=== PATIENT | female | born 2000 | race Caucasian/White ===

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

== ENCOUNTER → 2019-06-09 17:23 | Outpatient (CLI) | payer OTHER, SELFPAY ==
--- NOTE | 2019-06-09 18:15 | MRI_ITS ---
STUDY: MRI RIGHT FOREFOOT WITHOUT CONTRAST REASON FOR EXAM: Female, 18 years old. Right great toe sesamoid fracture. Pain, unable to bear weight. TECHNIQUE: Standardized fat and water weighted pulse sequences were obtained in all 3 orthogonal planes. COMPARISON: None. FINDINGS: Trace fluid in the first metatarsophalangeal joint. Normal tibial and fibular sesamoids, with normal sesamoid-first metatarsal articulations. There is no acute sesamoid fracture, sesamoiditis, or osteonecrosis. There is a chronic medial sesamoid fracture fragment. Normal interphalangeal joint of the hallux. Normal proximal and distal phalanges of the great toe. Normal second through fifth metatarsophalangeal (MTP) joints. Normal interphalangeal joints of the second through fifth toes. Normal phalanges of the second through fifth toes. Metatarsal bones are unremarkable. Normal first through fourth intermetatarsal spaces. Flexor and extensor tendons are intact. There is no demonstrated soft tissue abnormality. MRI/Lower Ext/No Jt/w/o IMPRESSION: 1. Trace effusion of the first MTP joint. 2. Remote medial sesamoid fracture. Electronically Signed: Kassi Hightower MD at 23:39 EDT Tel , Service support ,
== END ==
PROVIDERS: Referring Provider Podiatrist; Visit Provider Podiatrist
DX: M25.80 Other specified joint disorders, unspecified joint (principal); S92.901A Unspecified fracture of right foot, initial encounter for closed fracture; S96.111A Strain of muscle and tendon of long extensor muscle of toe at ankle and foot level, right foot, initial encounter; M79.671 Pain in right foot; X58.XXXA Exposure to other specified factors, initial encounter; Y93.9 Activity, unspecified; Y92.9 Unspecified place or not applicable; Y99.9 Unspecified external cause status
CPT/HCPCS: 73718

== ENCOUNTER 2020-10-24 15:09 | Emergency (ER) | payer SELFPAY ==
[2020-10-24 15:10] VITALS: BP 137/87; PULSE 100; RESP 18; TEMP 36.6; O2SAT 99; BMI 31.2
--- NOTE | 2020-10-24 15:31 | ED.VIS.GEN ---
History of Present Illness Chief Complaint: Complaint Informant: Patient Onset: Days Context: Gradual Onset Current Severity: Moderate Maximum Severity: Moderate Narrative: Patient presents secondary to concerns for worsening UTI. Patient states that she developed back pain and dizziness on the . She was seen at an urgent care and diagnosed with a kidney infection. She was prescribed Keflex 3 times daily for 7 days. Patient states she developed diarrhea once she started the antibiotics. She is concerned she may be now dehydrated. She reports continued to have dizziness and headache. She reports sweats and chills. She does report her back pain is improving. She was initially having dysuria but that is also improving. Past Medical History - Allergies and Home Meds Allergies/Adverse Reactions: Allergies citalopram hydrobromide [From Celexa] Adverse Reaction (Verified 10/24/20 15:13) Other suicidal thoughts Primary Care Physician: Care Physician,No Primary [Primary Care Provider] - Past Medical History: - - Frequent UTIs Lives: Spouse/ Significant Other Smoking Status: Never smoker Review of Systems General: Reports: Chills, Sweats Eyes: Denies: Visual changes - bilaterally ENT: Denies: Bilateral ear pain Cardiovascular: Denies: Chest pain Respiratory: Denies: Dyspnea, Cough Gastrointestinal: Reports: Abdominal pain, Diarrhea. Denies: Vomiting Genitourinary: Reports: Dysuria - Improving Musculoskeletal: Reports: Back pain - Improving Skin: Denies: Rash Neurological: Reports: Headache Hematologic: Denies: Easy bruising, Easy bleeding Allergy: Denies: Uticaria Physical Exam Vital Signs/Narrative: Vital Signs Temp Pulse Resp BP Pulse Ox 10/24/20 15:10 97.8 F 100 18 137/87 H 99 Inital Vital Signs reviewed: Yes General: Well nourished, Well developed Head: Normocephalic ENT: Moist mucous membranes Neck: Supple Cardiovascular: Regular rate, Regular rhythm Respiratory: No distress, CTA bilaterally Abdomen: Soft, Tender - Mild suprapubic tenderness., Hypoactive bowel sounds. Negative for: Guarding, Rebound tenderness Back: Negative for: CVA tenderness Skin: Normal color Neurological: Alert, Oriented x3 Psychological: Normal affect Diagnostic/Tx/Re-eval Laboratory Results 10/24/20 10/24/20 10/24/20 15:24 15:52 15:52 WBC 9.4 RBC 4.80 Hgb 14.4 Hct 42.3 MCV 88.1 MCH 30.0 MCHC 34.0 RDW Std Deviation 38.2 RDW Coeff of Brittany 11.9 Plt Count 205 MPV 11.0 Immature Gran % (Auto) 0.400 Neut % (Auto) 75.8 H Lymph % (Auto) 17.9 L Hendricks % (Auto) 5.5 Eos % (Auto) 0.2 Baso % (Auto) 0.2 Absolute Neuts (auto) 7.1 Absolute Lymphs (auto) 1.69 Nucleated RBC % 0 Differential Comment SCANNED Sodium 138 Potassium 4.1 Chloride 108 H Carbon Dioxide 24.0 Anion Gap 6 BUN 19 H Creatinine 0.68 Estim Creat Clear Calc 98.75 Est GFR (MDRD) Af Amer 140 Est GFR (MDRD) Non-Af 116 BUN/Creatinine Ratio 27.9 H Glucose 82 Calcium 9.8 Urine Color Yellow Urine Clarity Sl. Cloudy Urine pH 6.0 Ur Specific [place] 1.015 Urine Protein Negative Urine Glucose (UA) Normal Urine Ketones Negative Urine Occult Blood 25 H Urine Nitrite Negative Urine Bilirubin Negative Urine Urobilinogen Normal Ur Leukocyte Esterase 25 H Urine RBC 0-5 SEEN Urine WBC 0-5 SEEN Ur Squamous Epith Cells 0-5 SEEN Amorphous Sediment 1+ URATE Urine Bacteria 0 SEEN Urine Mucus 0 SEEN Urine Test Negative - Medical Decision Making Patient did have blood work obtained but we were unable to establish an IV. Patient states that she is a hard stick and they have difficulty getting IVs on her. She was given IM Toradol. On repeat evaluation she is resting comfortably. Blood work and urinalysis are largely unremarkable. Patient has had ongoing diarrhea. She will be swabbed for Covid but does not have to wait for that result. She will be given off work tomorrow. She is to continue to push fluids at home. She is to continue her full course of antibiotics. ED Disposition - Plan for ED Patient: Disposition: Home or Assisted Living Diagnosis: Diarrhea Instructions: ED Diarrhea, Unknown Cause Referrals: Rosalina Almaraz MD [STAFF PHYSICIAN] - As Needed
[2020-10-24 16:01] LABS: Bacteria 0 SEEN /hpf (None Seen); Mucous, Urine 0 SEEN /hpf (<or=2+)
[2020-10-24 16:03] LABS: Color, Urine Yellow (Yellow); Glucose, Dipstick Normal (Normal); Ketone-Dipstick Negative (Negative); Leukocyte Esterase-Dipstick 25 /ul (Negative); Nitrite-Dipstick Negative (Negative); Occult Blood-Urine 25 /ul (Negative); Protein-Dipstick Negative (Negative); Specific Gravity, Urine 1.015 (1.002-1.030); Urine Bilirubin Dipstick Negative (Negative); Urine Clarity Sl. Cloudy (Clear); Urine Urobilinogen Normal (Normal)
[2020-10-24 16:16] LABS: Internal QC Validated? YES +Cl - CLEAR BKGD; Pregnancy, Urine Negative Negative
[2020-10-24 16:17] LABS: Anion Gap 6 (5-15); BUN 19 mg/dL (7-18); BUN/Creat Ratio 27.9 RATIO (10-20); Calcium,Total 9.8 mg/dL (8.5-10.1); Chloride 108 mmol/L (98-107); Creatinine, Serum 0.68 mg/dL (0.55-1.02); EST Glomerular Filtration Rate 116 mL/min (>60); Est Glom Filt Rate - Afr Amer 140 mL/min (>60); Estimated Creatinine Clearance 98.75 ml/min; Glucose 82 mg/dL (74-106); Potassium 4.1 mmol/L (3.5-5.1); Sodium Level 138 mmol/L (136-145)
[2020-10-24] MEDS: Ketorolac 30 MG/ML Syringe IM (16:19)
[2020-10-24 16:20] LABS: Absolute Lymphocyte Count 1.69 X10^3/uL (0.83-4.51); Absolute Neutrophil Count 7.1 X10^3/uL (2.0-7.7); Basophil# 0.02 X10^3/uL; Basophil% 0.2 % (0-1); Eosinophil# 0.02 X10^3/uL; Eosinophils% 0.2 % (0-5); Hematocrit 42.3 % (37-47); Hemoglobin 14.4 g/dL (12.0-15.0); Lymphocyte # 1.69 X10^3/ul (4.0); Lymphocyte % 17.9 % (19-41); Mean Corpuscular Volume 88.1 fL (81-99); Monocyte# 0.52 X10^3/uL; Monocyte% 5.5 % (0-10); NRBC Flagged by Analyzer 0 % (0-5); Neutrophil # 7.13 X10^3/uL (2.7-7.7); Neutrophil % 75.8 % (47-70); POSITIVE COUNT YES; Platelet Count 205 K/mm3 (150-450); RBC Distribution Width CV 11.9 % (11.6-14.6); RBC Distribution Width SD 38.2 fl (35.1-43.9); White Blood Count 9.4 K/mm3 (4.4-11.0)
[2020-10-24 16:31] LABS: Differential Indicated SCAN CRITERIA MET
[2020-10-24 16:35] LABS: Amorphous Sediment 1+ URATE; Red Blood Cells-Urine 0-5 SEEN /hpf (0-5); Squamous Epithelial Cells - UA 0-5 SEEN /hpf (5-10); White Blood Cells 0-5 SEEN /hpf (0-5)
[2020-10-24 16:51] LABS: Differential Comment SCANNED
[2020-10-24 17:04] VITALS: BP 109/63; PULSE 57; RESP 16; O2SAT 99
== END 2020-10-24 17:05 | disposition home or self-care (01) ==
PROVIDERS: Emergency Provider Emergency Medicine
DX: R19.7 Diarrhea, unspecified (principal); Z87.440 Personal history of urinary (tract) infections
CPT/HCPCS: 80048; 81001; 81025; 85025; 87426; 96372; 99282; J7030

== ENCOUNTER 2021-11-01 18:28 | Emergency (ER) | payer OTHER, SELFPAY ==
[2021-11-01 18:30] VITALS: BP 123/80; PULSE 110; RESP 16; TEMP 35.9; O2SAT 94; BMI 33.0
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
[2021-11-01] MEDS: Naproxen 500 MG Tablet PO (19:01)
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
== END 2021-11-01 20:29 | disposition home or self-care (01) ==
PROVIDERS: Emergency Provider Emergency Medicine; Visit Provider Emergency Medicine
DX: S97.111A Crushing injury of right great toe, initial encounter (principal); X58.XXXA Exposure to other specified factors, initial encounter
CPT/HCPCS: 73630; 99283

== ENCOUNTER 2022-06-29 17:59 | Emergency (ER) | payer OTHER, SELFPAY ==
[2022-06-29 18:00] VITALS: BP 142/98; PULSE 113; RESP 16; TEMP 36.6; O2SAT 98; BMI 33.0
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
--- NOTE | 2022-06-29 21:15 | EKG12_ITS ---
Test Reason : DYSRHYTHMIA Blood Pressure : / mmHG Vent. Rate : 098 BPM Atrial Rate : 098 BPM P-R Int : 112 ms QRS Dur : 076 ms QT Int : 348 ms P-R-T Axes : 025 048 003 degrees QTc Int : 444 ms Normal sinus rhythm Nonspecific ST and T wave abnormality Abnormal ECG Confirmed by DARRELL AN, IAN ([id number]), general expeditor DYLON ALEXANDRE ([id number]) on 07/01/2022 11:05:22 AM Referred By: SANTA Confirmed By:IAN RAMÍREZ MD
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
--- NOTE | 2022-06-29 21:16 | CT_ITS ---
STUDY: CT BRAIN WITHOUT CONTRAST REASON FOR EXAM: Female, 21 years old. Trauma RADIATION DOSAGE (If Supplied By Facility): CTDIvol = ( 44.99 ) mGy, DLP = ( 798.92 ) mGycm TECHNIQUE: Transaxial CT imaging of the brain was performed without administration of intravenous contrast material. Individualized dose optimization techniques were used for this CT. COMPARISON: No relevant priors. FINDINGS: Normal soft tissue structures. Normal calvarium. Normal size ventricles and extra-axial spaces for the patient''s age. Normal white matter tracts of the cerebral hemispheres. Normal basal ganglia and thalami. Normal brainstem. Normal cerebellum. There is no intracranial hemorrhage. There are no findings of an acute ischemic infarction. Normal visualized paranasal sinuses. The bilateral mastoid air cells and ossicles are unopacified. CT/Brain/Head without Contrast IMPRESSION: There is no acute intracranial pathology. Electronically Signed: Hattie Fox MD at 22:38 EDT Reading Location ID and State: , Service support ,
[2022-06-29 21:49] LABS: Absolute Lymphocyte Count 1.79 X10^3/uL (0.83-4.51); Absolute Neutrophil Count 6.1 X10^3/uL (2.0-7.7); Basophil# 0.01 X10^3/uL; Basophil% 0.1 % (0-1); Eosinophil# 0.02 X10^3/uL; Eosinophils% 0.2 % (0-5); Hematocrit 40.2 % (37-47); Hemoglobin 13.7 g/dL (12.0-15.0); Lymphocyte # 1.79 X10^3/ul (0.83-4.51); Lymphocyte % 21.2 % (19-41); Mean Corp Hgb Conc 34.1 g/dL (32-36); Mean Corpuscular Hgb 30.9 pg (27.0-32.0); Mean Corpuscular Volume 90.5 fL (81-99); Mean Platelet Vol. 9.9 fl (6.2-12.0); Monocyte# 0.49 X10^3/uL; Monocyte% 5.8 % (0-10); NRBC Flagged by Analyzer 0 % (0-5); Neutrophil # 6.11 X10^3/uL (2.7-7.7); Neutrophil % 72.2 % (47-70); Platelet Count 287 K/mm3 (150-450); RBC Distribution Width CV 12.7 % (11.6-14.6); Red Blood Count 4.44 M/mm3 (4.2-5.4); White Blood Count 8.5 K/mm3 (4.4-11.0)
[2022-06-29] MEDS: Ondansetron 4 MG/2 ML Vial IV (21:50)
[2022-06-29] MEDS: Morphine 4 MG/ML Syringe IV ×2 (21:50→23:58)
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
[2022-06-29 22:00] VITALS: BP 129/78; PULSE 94; RESP 14; O2SAT 98
[2022-06-29 22:04] LABS: Internal QC Validated? YES +Cl - CLEAR BKGD
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
[2022-06-29 22:05] LABS: Pregnancy, Serum, hCG Quali. NEGATIVE Negative
[2022-06-29 22:07] LABS: Anion Gap 8 (5-15); BUN 17 mg/dL (7-18); BUN/Creat Ratio 23.1 RATIO (10-20); Calcium,Total 9.7 mg/dL (8.5-10.1); Chloride 106 mmol/L (98-107); Creatinine, Serum 0.74 mg/dL (0.55-1.02); EST Glomerular Filtration Rate 104 mL/min (>60); Est Glom Filt Rate - Afr Amer 126 mL/min (>60); Estimated Creatinine Clearance 89.98 ml/min; Glucose 98 mg/dL (74-106); Potassium 3.9 mmol/L (3.5-5.1); Sodium Level 142 mmol/L (136-145)
[2022-06-29 23:12] LABS: Bacteria 0 SEEN /hpf (None Seen); Mucous, Urine 0 SEEN /hpf (<or=2+)
[2022-06-29 23:14] LABS: Color, Urine Yellow (Yellow); Glucose, Dipstick Normal (Normal); Ketone-Dipstick Negative (Negative); Leukocyte Esterase-Dipstick 25 /ul (Negative); Nitrite-Dipstick Negative (Negative); Occult Blood-Urine 25 /ul (Negative); Protein-Dipstick 30 mg/dl (Negative); Urine Bilirubin Dipstick Negative (Negative); Urine Clarity Clear (Clear); Urine Urobilinogen Normal (Normal); Urine pH 6.5 (5.0 - 8.0)
[2022-06-29 23:25] LABS: Red Blood Cells-Urine 0-5 SEEN /hpf (0-5); Squamous Epithelial Cells - UA 0-5 SEEN /hpf (5-10); White Blood Cells 0-5 SEEN /hpf (0-5)
[2022-06-29 23:48] VITALS: BP 124/78; PULSE 66; RESP 14; TEMP 37.2; O2SAT 99
[2022-06-29] MEDS: Ketorolac 15 MG/ML Vial IV (23:58)
[2022-06-30 00:36] VITALS: BP 113/76; PULSE 79; RESP 16; O2SAT 96
== END 2022-06-30 00:36 | disposition home or self-care (01) ==
PROVIDERS: Emergency Provider Emergency Medicine; Visit Provider Emergency Medicine
DX: S06.0X1A Concussion with loss of consciousness of 30 minutes or less, initial encounter (principal); R10.9 Unspecified abdominal pain; S16.1XXA Strain of muscle, fascia and tendon at neck level, initial encounter; S20.20XA Contusion of thorax, unspecified, initial encounter; E66.9 Obesity, unspecified; V48.5XXA Car driver injured in noncollision transport accident in traffic accident, initial encounter; Y92.410 Unspecified street and highway as the place of occurrence of the external cause; R51.9 Headache, unspecified; R11.2 Nausea with vomiting, unspecified
CPT/HCPCS: 70450; 71046; 72125; 74177; 80048; 81001; 84703; 85025; 93005; 96374; 96375; 96376; 99283; Q9967; A4216; J2405

== ENCOUNTER 2022-07-20 16:14 | Outpatient (RCR) | payer OTHER, SELFPAY ==
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
--- NOTE | 2022-09-29 09:51 | HP.PT.NRP ---
MANISH OLIVEIRA was seen in my office for initial evaluation on 07/20/22. The following Plan of Care was established for this patient: Initial Frequency: 2x /Week Initial Duration: 4 Weeks Patient/Client Instruction: Educate patient on: Condition, Plan of Care For the Purpose of:: To decrease pain, To increase ROM, To improve muscle performance and motor function, To improve ability to perform ADL's, To increase tolerance to activity/condition/position, To improve performance and independence with ADL's, To improve ability of physical actions for home/community/work/leisure, To improve health of tissue, To decrease soft tissue restriction, To increase flexibility/ROM, To prevent re-injury Therapeutic Exercise to Include: Strength training, Body mechanics, Postural training, Flexibilty training, Active ROM, Dynamic Lumbar Stabilization For the Purpose of:: To decrease pain, To increase ROM, To improve muscle performance and motor function, To improve ability to perform ADL's, To increase tolerance to activity/condition/position, To improve ability of physical actions for home/community/work/leisure, To improve health of tissue, To decrease soft tissue restriction, To increase flexibility/ROM, To improve balance, To improve tolerance to ADL's Manual Therapy Techniques to Include: Soft tissue mobilization Comment: CERVICAL For the Purpose of:: To decrease pain, To increase ROM, To improve health of tissue, To decrease soft tissue restriction TENS: Yes IF ES: Yes Cryotherapy (ice pack, ice massage): Yes Thermo therapy (hot pack): Yes Ultrasound (thermal/non thermal): Yes For the Purpose of:: To decrease pain, To increase ROM, To improve nutrient delivery to tissue, To increase oxygenation perfusion, To improve health of tissue, To decrease soft tissue restriction, To increase flexibility/ROM, To prevent re-injury This patient was last seen in our office . Pertinent comments regarding their Physical therapy will appear below: Patient was seen for PT evaluation and HEP At this point I will be discontinuing this patient from physical therapy. I would be happy to see this patient again in the future if found appropriate by the physician. Thank you! Kristopher Figueroa, PT, Cert MDT, OCS Balance/Gait/Functional tests - Balance/Special Test Scores Oswestry Low Back Score: 33
== END 2022-07-20 19:00 | disposition home or self-care (01) ==
LOC: PT 16:14
PROVIDERS: Referring Provider Physician Assistant; Visit Provider Physician Assistant
DX: S06.0X0D Concussion without loss of consciousness, subsequent encounter (principal); S16.1XXD Strain of muscle, fascia and tendon at neck level, subsequent encounter; S39.012D Strain of muscle, fascia and tendon of lower back, subsequent encounter; X58.XXXD Exposure to other specified factors, subsequent encounter; M54.16 Radiculopathy, lumbar region
CPT/HCPCS: 97014; 97161; G0283

== ENCOUNTER 2022-08-09 13:49 | Emergency (ER) | payer OTHER, SELFPAY ==
[2022-08-09 13:51] VITALS: BP 133/90; PULSE 113; RESP 14; TEMP 36.8; O2SAT 100; BMI 35.9
[2022-08-09 14:39] LABS: Bacteria 0 SEEN /hpf (None Seen); Mucous, Urine 0 SEEN /hpf (<or=2+); Red Blood Cells-Urine 0 SEEN /hpf (0-5); White Blood Cells 0 SEEN /hpf (0-5)
[2022-08-09 14:43] LABS: Color, Urine Yellow (Yellow); Glucose, Dipstick Normal (Normal); Ketone-Dipstick Negative (Negative); Leukocyte Esterase-Dipstick 25 /ul (Negative); Nitrite-Dipstick Negative (Negative); Occult Blood-Urine 25 /ul (Negative); Protein-Dipstick Negative (Negative); Urine Bilirubin Dipstick Negative (Negative); Urine Clarity Clear (Clear); Urine Urobilinogen Normal (Normal)
[2022-08-09 14:45] LABS: Squamous Epithelial Cells - UA 0-5 SEEN /hpf (5-10)
--- NOTE | 2022-08-09 14:59 | US_ITS ---
STUDY: FIRST TRIMESTER OBSTETRICAL ULTRASOUND REASON FOR EXAM: Female, 21 years old light bleeding LMP: 06/21/2022 TECHNIQUE: Transvaginal TECHNICAL QUALITY: Adequate. PRIOR ULTRASOUND: None. FINDINGS: There is visualization of a single gestational sac in a normal intrauterine position. The mean sac diameter (MSD) measures 10 mm, indicating an estimated gestational age (EGA) of 5 weeks, 5 days. The gestational sac shape is within normal limits. There is a visualized yolk sac. The yolk sac measures 5 mm. The placenta is non-visualized. There is visualization of a live embryo. The crown-rump length (CRL) measures 4 mm, indicating an estimated gestational age (EGA) of 6 weeks, 2 days. There is demonstrated cardiac activity with a heart rate of 120 bpm. The estimated gestation age (EGA) by LMP is 7 weeks, 0 days. The estimated date of delivery (KIMO) by LMP is 03/28/2023. The estimated gestation age (EGA) by US is 6 weeks, 0 days. The estimated date of delivery (KIMO) by US is 04/04/2023. The uterus measures 7.2 x 5.1 x 4.4 cm. There is no demonstrated uterine fibroid. The cervix is closed. The right ovary measures 2.8 x 1.4 x 1.7 cm. There is no right ovarian cyst. There is no visualized right adnexal mass or complex lesion. The left ovary measures 2.2 x 1.5 x 1.7 cm. There is no left ovarian cyst. There is no visualized left adnexal mass or complex lesion. There is no fluid in the cul de sac. US/Transvaginal w/Preg US IMPRESSION: Living intrauterine of 6 weeks 0 days as described above. Electronically Signed: Tyshawn Vieira MD at 17:45 EDT ,
[2022-08-09 15:07] LABS: Internal QC Validated? YES +Cl - CLEAR BKGD; Pregnancy, Serum, hCG Quali. POSITIVE Negative
[2022-08-09] MEDS: Acetaminophen 325 MG Tablet 650 MG PO (15:12)
[2022-08-09 15:14] LABS: Absolute Lymphocyte Count 1.23 X10^3/uL (0.83-4.51); Absolute Neutrophil Count 4.2 X10^3/uL (2.0-7.7); Basophil# 0.01 X10^3/uL; Basophil% 0.2 % (0-1); Eosinophil# 0.02 X10^3/uL; Eosinophils% 0.3 % (0-5); Hematocrit 39.1 % (37-47); Hemoglobin 13.4 g/dL (12.0-15.0); Lymphocyte # 1.23 X10^3/ul (0.83-4.51); Mean Corp Hgb Conc 34.3 g/dL (32-36); Mean Corpuscular Hgb 31.5 pg (27.0-32.0); Mean Corpuscular Volume 91.8 fL (81-99); Mean Platelet Vol. 10.1 fl (6.2-12.0); Monocyte# 0.37 X10^3/uL; Monocyte% 6.3 % (0-10); NRBC Flagged by Analyzer 0 % (0-5); Neutrophil # 4.21 X10^3/uL (2.7-7.7); Neutrophil % 71.9 % (47-70); Platelet Count 224 K/mm3 (150-450); RBC Distribution Width CV 12.8 % (11.6-14.6); RBC Distribution Width SD 42.5 fl (35.1-43.9); Red Blood Count 4.26 M/mm3 (4.2-5.4); White Blood Count 5.9 K/mm3 (4.4-11.0)
[2022-08-09 15:55] LABS: ALB/GLOB Ratio 1.1 RATIO (0.9-2.4); AST(SGOT) 38 U/L (15-37); Alanine Aminotransfer ALT/SGPT 67 U/L (13-56); Albumin, Serum 3.8 g/dL (3.2-5.0); Alkaline Phosphatase 56 U/L (45-117); Anion Gap 7 (5-15); BUN 8 mg/dL (7-18); BUN/Creat Ratio 9.7 RATIO (10-20); Calcium,Total 9.2 mg/dL (8.5-10.1); Chloride 107 mmol/L (98-107); Creatinine, Serum 0.82 mg/dL (0.55-1.02); EST Glomerular Filtration Rate 91 mL/min (>60); Est Glom Filt Rate - Afr Amer 111 mL/min (>60); Globulin 3.5 g/dL (2.2-4.2); Glucose 122 mg/dL (74-106); Potassium 3.5 mmol/L (3.5-5.1); Protein, Total 7.3 g/dL (6.4-8.2); Sodium Level 139 mmol/L (136-145)
[2022-08-09 16:12] LABS: hCG Titer Quant., Serum 10165 mIU/mL (1-3)
[2022-08-09 16:37] VITALS: BP 114/56; PULSE 94; RESP 18; O2SAT 99
--- NOTE | 2022-08-09 17:13 | ED.VIS.FEGU ---
HPI HPI - Female History of Present Illness Chief Complaint: Vag Bld, Preg Informant: patient Narrative Narrative: Patient is a 21-year-old female, G1, P0 presenting with vaginal bleeding in early . Patient is approximately 6 weeks gestation. Her last menstrual period was June 21. Her UTILIZATION REVIEW NURSE is in [place], Dr. Hernandez. She has not had an ultrasound confirming intrauterine gestation yet. Patient reports that she developed some mild lower abdominal cramping, right worse than left today and pink vaginal bleeding. She states it is only when she wipes after using the restroom. Denies any passage of clots or leakage of fluids. Is concerned because she has a family history of miscarriages. Reports urinary frequency but no dysuria or hematuria. Is not currently sexually active. Denies any abnormal vaginal discharge or concern for STI. No other complaints at this time. [facility] Medical History Acute lumbar myofascial strain Blunt abdominal trauma Cervical strain, acute Chest wall contusion Concussion without loss of consciousness Congenital fxnkkd-plbfxsz-ptjjv reflux Crushing injury of right great toe, initial encounter Lumbar radiculopathy, acute Home Medications ginhalyi-slx-Pr-FA 1 mg tablet 1 tab PO DAILY 08/09/22 [History Last Taken Unknown] Allergy/AdvReac Type Severity Reaction Status Date / Time citalopram hydrobromide AdvReac Other Verified 08/09/22 13:51 [From Celexa] Family History Grandmother Breast cancer Brain cancer Grandfather CVA (cerebral vascular accident) Mother Diabetes Surgical History [place] teeth removed Social History household members: spouse housing: house Smoking Status: Never smoker alcohol intake: never what type of physical activity do you participate in: yoga frequency: 1-2 times per week do you feel safe at home: Yes ROS ROS ED Constitutional Constitutional ED: Denies chills or fever(s) Eyes Eyes: Denies change in vision ENT ENT ED: Denies rhinorrhea Cardiovascular Cardiovascular: Denies chest pain or palpitations Respiratory/Chest Respiratory/Chest: Denies cough Gastrointestinal Gastrointestinal: Reports abdominal pain and nausea; Denies constipation, diarrhea or vomiting Genitourinary Genitourinary ED: Reports urinary frequency and other Details: vaginal bleeding ; Denies dysuria or hematuria Musculoskeletal Musculoskeletal: Denies arthralgias or myalgias Integumentary Denies rash Neurologic Neurologic: Denies headache(s) or weakness Psychiatric Psychiatric: Reports anxiety Hematologic/Lymphatic Hematologic/Lymphatic: Denies easy bleeding or easy bruising EXAM Physical Exam Const Vital Signs: 08/09/22 13:51 08/09/22 16:37 Temperature 98.2 F Temperature Source Temporal Pulse Rate 113 H 94 Respiratory Rate 14 18 Blood Pressure 133/90 H 114/56 L Blood Pressure Mean 104 75 Pulse Ox 100 99 Oxygen Delivery Method Room Air Room Air Positive well nourished and well developed General Appearance ED: well developed and NAD HEENT Reports moist mucous membranes Eyes PERRL and EOMs intact bilaterally Neck supple Resp normal respiratory effort and clear to auscultation bilaterally Cardio regular rate, regular rhythm and no murmurs GI normal to inspection, nondistended, normoactive bowel sounds and soft to palpation Palpation: tender RLQ and suprapubic; Negative for guarding or rigid Back/Spine no CVA tenderness Extremity normal to inspection and full ROM Psych mental status grossly normal Mood & Affect: tearful Skin no rashes or lesions noted and no wounds MDM MDM MDM Narrative Medical decision making narrative: Patient by her vaginal bleeding in early . She also has had lower cramping. SHe appears nontoxic and in no acute distress. She is hemodynamically stable. Initially she is tachycardic however this improves I suspect it is more associated with the stress of the situation. Patient's blood type is O+ and she does not require RhoGAM. CBC is normal. Urinalysis is not consistent with infection and there is no protein in the urine. CMP unremarkable. She is a very minor elevation in her AST or ALT but I do not think this is causing her lower abdominal discomfort. hCG quant is 10,165 and formal ultrasound obtained. Given no leukocytosis and early with 1 day of symptoms have a low suspicion for appendicitis and I think the risk of radiation at this point outweigh the benefits. Assuming no acute abnormalities on ultrasound patient can be discharged home to follow-up with her UTILIZATION REVIEW NURSE. Is given return precautions if she develops any worsening pain, fever or other concerns. Patient counseled on the risk of this progressing to a miscarriage and that there is no medical intervention at this time. She verbalizes understanding of this. Lab Data Attestation: I reviewed the patient's lab results. Labs: Laboratory Results - last 24 hr 08/09/22 08/09/22 08/09/22 14:30 14:35 14:35 WBC 5.9 RBC 4.26 Hgb 13.4 Hct 39.1 MCV 91.8 MCH 31.5 MCHC 34.3 RDW Std Deviation 42.5 RDW Coeff of Brittany 12.8 Plt Count 224 MPV 10.1 Immature Gran % (Auto) 0.300 Neut % (Auto) 71.9 H Lymph % (Auto) 21.0 [place] % (Auto) 6.3 Eos % (Auto) 0.3 Baso % (Auto) 0.2 Absolute Neuts (auto) 4.2 Absolute Lymphs (auto) 1.23 Nucleated RBC % 0 Sodium Potassium Chloride Carbon Dioxide Anion Gap BUN Creatinine Estim Creat Clear Calc Est GFR (MDRD) Af Amer Est GFR (MDRD) Non-Af BUN/Creatinine Ratio Glucose Calcium Total Bilirubin AST ALT Alkaline Phosphatase Total Protein Albumin Globulin Albumin/Globulin Ratio HCG, Quant Serum , Qual POSITIVE H Urine Color Yellow Urine Clarity Clear Urine pH 7.0 Ur Specific [place] 1.010 Urine Protein Negative Urine Glucose (UA) Normal Urine Ketones Negative Urine Occult Blood 25 H Urine Nitrite Negative Urine Bilirubin Negative Urine Urobilinogen Normal Ur Leukocyte Esterase 25 H Urine RBC 0 SEEN Urine WBC 0 SEEN Ur Squamous Epith Cells 0-5 SEEN Urine Bacteria 0 SEEN Urine Mucus 0 SEEN Blood Type 08/09/22 08/09/22 08/09/22 14:35 14:35 15:15 WBC RBC Hgb Hct MCV MCH MCHC RDW Std Deviation RDW Coeff of Brittany Plt Count MPV Immature Gran % (Auto) Neut % (Auto) Lymph % (Auto) [place] % (Auto) Eos % (Auto) Baso % (Auto) Absolute Neuts (auto) Absolute Lymphs (auto) Nucleated RBC % Sodium 139 Potassium 3.5 Chloride 107 Carbon Dioxide 25.0 Anion Gap 7 BUN 8 Creatinine 0.82 Estim Creat Clear Calc 81.20 Est GFR (MDRD) Af Amer 111 Est GFR (MDRD) Non-Af 91 BUN/Creatinine Ratio 9.7 L Glucose 122 H Calcium 9.2 Total Bilirubin 0.50 AST 38 H ALT 67 H Alkaline Phosphatase 56 Total Protein 7.3 Albumin 3.8 Globulin 3.5 Albumin/Globulin Ratio 1.1 HCG, Quant 13833 H Serum , Qual Urine Color Urine Clarity Urine pH Ur Specific [place] Urine Protein Urine Glucose (UA) Urine Ketones Urine Occult Blood Urine Nitrite Urine Bilirubin Urine Urobilinogen Ur Leukocyte Esterase Urine RBC Urine WBC Ur Squamous Epith Cells Urine Bacteria Urine Mucus Blood Type O POSITIVE Discharge Plan Triage Chief Complaint: Vag Bld, Preg ED Provider: Arely Smith Dx/Rx/DC Orders Clinical Impression: Lower abdominal pain, , threatened, early Instructions: ED Abdominal Pain, Early , ED Miscarriage Spontaneous Prescriptions: No Action 1 mg Tablet 1 tab PO DAILY Primary Care Provider: Care Physician,Sarina Primary Referrals: Care Physician,No Primary [Primary Care Provider] - Activity Restrictions/Additional Instructions: Follow-up with your UTILIZATION REVIEW NURSE. Return if you have worsening symptoms or worsening abdominal pain/fever. Disposition Disposition: Home, Self Care
[2022-08-09 18:07] VITALS: BP 120/74; PULSE 92; RESP 18; O2SAT 99
[2022-08-09 18:09] VITALS: BP 120/74; PULSE 107; RESP 18; O2SAT 94
== END 2022-08-09 18:14 | disposition home or self-care (01) ==
PROVIDERS: Emergency Provider Emergency Medicine; Visit Provider Emergency Medicine
DX: O20.0 Threatened abortion (principal); O99.891 Other specified diseases and conditions complicating pregnancy; O26.891 Other specified pregnancy related conditions, first trimester; Z3A.01 Less than 8 weeks gestation of pregnancy; R10.30 Lower abdominal pain, unspecified; R35.0 Frequency of micturition
CPT/HCPCS: 76817; 80053; 81001; 84702; 84703; 85025; 86900; 86901; 99284; A4216

== ENCOUNTER 2025-01-02 18:27 | Emergency (ER) | payer BC, SELFPAY ==
[2025-01-02] VITALS (8 sets, daily range): BP systolic 102–140; BP diastolic 60–85; PULSE 78–150; RESP 14–19; TEMP 37.6–38.5; O2SAT 94–99; BMI 37.3
[2025-01-02 19:17] LABS: Mucous, Urine 0 SEEN /hpf (<or=2+)
[2025-01-02 19:20] LABS: Color, Urine Yellow (Yellow); Glucose, Dipstick Normal (Normal); Ketone-Dipstick 5 mg/dl (Negative); Leukocyte Esterase-Dipstick 500 /ul (Negative); Nitrite-Dipstick Negative (Negative); Occult Blood-Urine 250 /ul (Negative); Protein-Dipstick 100 mg/dl (Negative); Specific Gravity, Urine 1.015 (1.002-1.030); Urine Bilirubin Dipstick Negative (Negative); Urine Clarity Cloudy (Clear); Urine Urobilinogen Normal (Normal)
[2025-01-02] MEDS: Acetaminophen 500 MG Tablet 1000 MG PO (19:20)
[2025-01-02 19:32] LABS: Red Blood Cells-Urine 5-10 SEEN /hpf (0-5); White Blood Cells >100 SEEN /hpf (0-5)
[2025-01-02 19:34] LABS: Bacteria 3+ /hpf (None Seen)
[2025-01-02 19:35] LABS: Squamous Epithelial Cells - UA 5-10 SEEN /hpf (5-10)
[2025-01-02] MEDS: Ondansetron 4 MG/2 ML Vial IV (19:58)
[2025-01-02] MEDS: 0.9% Normal Saline (1000mL) 1,000 ML 999 ML IV ×2 (19:58→21:53)
[2025-01-02 19:59] LABS: Internal QC Validated? YES +Cl - CLEAR BKGD; Pregnancy, Serum, hCG Quali. NEGATIVE Negative
[2025-01-02 20:24] LABS: Absolute Lymphocyte Count 0.64 X10^3/uL (0.83-4.51); Absolute Neutrophil Count 9.4 X10^3/uL (2.0-7.7); Basophil# 0.01 X10^3/uL; Basophil% 0.1 % (0-1); Hematocrit 41.9 % (37-47); Hemoglobin 14.6 g/dL (12.0-15.0); Lymphocyte # 0.64 X10^3/ul (0.83-4.51); Lymphocyte % 5.9 % (19-41); Mean Corp Hgb Conc 34.8 g/dL (32-36); Mean Corpuscular Hgb 30.8 pg (27.0-32.0); Mean Corpuscular Volume 88.4 fL (81-99); Mean Platelet Vol. 10.2 fl (6.2-12.0); Monocyte# 0.63 X10^3/uL; Monocyte% 5.9 % (0-10); NRBC Flagged by Analyzer 0 % (0-5); Neutrophil # 9.42 X10^3/uL (2.7-7.7); Neutrophil % 87.5 % (47-70); Platelet Count 188 K/mm3 (150-450); RBC Distribution Width CV 12.4 % (11.6-14.6); RBC Distribution Width SD 40.1 fl (35.1-43.9); Red Blood Count 4.74 M/mm3 (4.2-5.4); White Blood Count 10.8 K/mm3 (4.4-11.0)
[2025-01-02] MEDS: Ceftriaxone 2 GM in 0.9% Normal Saline (50mL MB+) 50 ML IV (20:28)
[2025-01-02 20:31] LABS: ALB/GLOB Ratio 1.3 RATIO (0.9-2.4); AST(SGOT) 28 U/L (<=31); Alanine Aminotransfer ALT/SGPT 50 U/L (<=34); Albumin, Serum 4.5 g/dL (3.5-5.0); Alkaline Phosphatase 69 U/L (35-104); Anion Gap 13 (5-15); BUN 12 mg/dL (4-19); BUN/Creat Ratio 13.3 RATIO (10-20); Calcium,Total 9.6 mg/dL (7.6-11.0); Chloride 102 mmol/L (98-108); Creatinine, Serum 0.93 mg/dL (0.70-1.20); EST Glomerular Filtration Rate 87 (>60); Estimated Creatinine Clearance 94.15 ml/min (50-250); Globulin 3.4 g/dL (2.2-4.2); Glucose 109 mg/dL (70-99); Lipase 19 U/L (13-75); Potassium 3.4 mmol/L (3.3-5.1); Protein, Total 7.9 g/dL (5.9-8.4); Sodium Level 138 mmol/L (133-145); Total Bilirubin 0.96 mg/dL (0.00-1.30)
[2025-01-02 20:41] LABS: International Normalized Ratio 1.1; Prothrombin Time (Protime)PT. 14.5 SECONDS (11.7-14.9)
[2025-01-02 20:42] LABS: Partial Thromboplast Time 33.7 Seconds (24.1-36.2)
--- NOTE | 2025-01-02 20:50 | CT_ITS ---
PROCEDURE: ABDOMEN/PELVIS W IV CONT ONLY 01/02/2025 REASON FOR EXAM: 24-year-old female, nausea, vomiting, fever, bilateral flank pain, history of stones. TECHNIQUE: Abdomen and pelvis CT without and with intravenous contrast. Coronal and Sagittal reconstruction series were provided. PATIENT PREPARATION: Per protocol ORAL CONTRAST TYPE: None. CONTRAST: Isovue-300 VOLUME: 100mL One or more dose reduction techniques were used (e.g., Automated exposure control, adjustment of the mA and/or kV according to patient size, use of iterative reconstruction technique. RADIATION DOSE SUMMARY: CTDlvol: 40 mGy DLP: 1300 mGycm COMPARISON: CT abdomen pelvis 06/29/2022. FINDINGS: Lung bases: The lung bases are clear. Heart is normal in size. Liver: The liver is normal in size with marked hepatic steatosis. The major portal veins are patent. No biliary ductal dilation. Gallbladder: No radiopaque stones within the gallbladder. Spleen: Unremarkable. Pancreas: Unremarkable. Adrenals: Unremarkable. Kidneys: Stable asymmetric atrophy of the left kidney. No hydronephrosis or nephrolithiasis. Bladder: The urinary bladder is mildly distended with diffuse bladder wall thickening. Reproductive Organs: Normal uterine size and contour. Ovaries are unremarkable. Bowel: The bowel loops are normal in caliber. No ascites or pneumoperitoneum. Normal appendix. Lymph nodes: No suspicious lymph node enlargement. Vasculature: The abdominal aorta and IVC are normal. Bones: No aggressive osseous lesions. CT/Abdomen/Pelvis W IV Cont ONLY IMPRESSION: 1. No acute abdominopelvic finding. 2. Diffuse bladder wall thickening, which may be secondary to incomplete disten tion or developing urinary tract infection. Correlation with urinalysis recommended. 3. Diffuse hepatic steatosis. Reading Location: [id number]
[2025-01-02 21:18] LABS: Lactic Acid 1.1 mmol/L (0.0-2.0)
--- NOTE | 2025-01-02 22:28 | EX.ED.DYSGE1 ---
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 According to the patient she states that yesterday she was not feeling well she went to bed and then noted that when she woke up she had painful urination. States that as the day went on she developed fever feeling worse prompting her to come here for the valuation management. Patient denies any sick contacts. States that she has not followed with urology at all. Patient states that she was always told drink plenty of water. States that she tried Azo at home. [facility] Medical History Lumbar radiculopathy, acute Acute lumbar myofascial strain Blunt abdominal trauma Chest wall contusion Cervical strain, acute Concussion without loss of consciousness Crushing injury of right great toe, initial encounter Congenital ntvyzi-clzjfgz-cablu reflux Home Medications ?Medication ?Instructions ?Recorded ?Last Taken ?Type xjjzmcfi-xqe-Km-FA 1 mg 1 tab PO DAILY 08/09/22 Unknown History tablet cephalexin 500 mg capsule 500 mg PO Q6H 5 days #20 caps 01/02/25 Unknown Rx ondansetron 4 mg disintegrating 4 mg PO Q6H PRN nausea and 01/02/25 Unknown Rx tablet vomiting #20 tabs oxycodone-acetaminophen 5 mg-325 1 tab PO Q4H PRN pain 2 days #8 01/02/25 Unknown Rx mg tablet (Endocet) tabs Allergy/AdvReac Type Severity Reaction Status Date / Time escitalopram (From Lexapro) AdvReac Severe SUICIDAL Verified 01/02/25 18:30 citalopram hydrobromide AdvReac Other Verified 01/02/25 18:30 (From Celexa) Family History Grandmother Breast cancer Brain cancer Grandfather CVA (cerebral vascular accident) Mother Diabetes Surgical History [place] teeth removed Social History household members: spouse housing: house Smoking Status: Never smoker alcohol intake: never what type of physical activity do you participate in: yoga frequency: 1-2 times per week do you feel safe at home: Yes ROS ROS ED ROS Narrative Constitutional: Complains of fever as noted above and chills denies lightheadedness, dizziness Eyes: Denies change in vision double and blurry vision Cardiovascular: Denies chest pain or palpitations Respiratory: Denies coughing wheezing shortness of breath Abdomen: States that her back pain wraps around to her front of her abdomen as well as complaint of nausea and vomiting denies diarrhea : Complains of painful urination and hematuria Neurological: Denies numbness, weakness, tingling Musculoskeletal: Complains of back pain as noted above Skin: Denies rashes or lesions EXAM Physical Exam Narrative Exam Narrative: general: Patient was lying in bed did appear to be uncomfortable not feeling well overall Head: Atraumatic, normocephalic Eyes: PERRL bilateral, EOMI bilateral, no conjunctival injection noted Neck: Soft, supple, trachea midline Cardiovascular: Patient tachycardic with a regular rhythm no murmurs gallops rubs noted Respiratory: Clear to auscultation bilaterally no rales rhonchi or wheeze noted Abdomen: Patient does have lower abdominal tenderness noted bilaterally on exam no rebound or guarding on exam Musculoskeletal: No tense palpation midline thoracic lumbar spine Extremities: +5/5 strength noted in the bilateral lower extremities, radial pulse +2/4 in the bilateral extremities Neurological: Patient following commands knew that she was at [facility] years 2024 Skin:, No rashes or lesions noted warm, dry, intact Const Vital Signs: 01/02/25 18:31 01/02/25 18:33 01/02/25 18:55 Temperature 100.2 F H 100.2 F H 99.7 F H Temperature Source Oral Oral Oral Pulse Rate 150 H 150 H 78 Respiratory Rate 18 18 16 Respiratory Effort Respiratory Pattern Blood Pressure 140/85 H 140/85 H 109/71 Blood Pressure Mean 103 103 83 Pulse Ox 95 95 98 Oxygen Delivery Method Room Air Room Air 01/02/25 18:55 01/02/25 19:33 01/02/25 20:00 Temperature 101.3 F H 101.3 F H Temperature Source Oral Oral Pulse Rate 134 H 132 H Respiratory Rate 18 14 Respiratory Effort Normal Non-Labored Respiratory Pattern Normal Blood Pressure 105/60 122/63 H Blood Pressure Mean 75 82 Pulse Ox 95 96 Oxygen Delivery Method Room Air Room Air 01/02/25 21:00 01/02/25 22:00 Temperature 99.9 F H 100 F H Temperature Source Oral Oral Pulse Rate 125 H 111 H Respiratory Rate 18 16 Respiratory Effort Respiratory Pattern Blood Pressure 123/74 H 115/68 Blood Pressure Mean 90 83 Pulse Ox 94 99 Oxygen Delivery Method Room Air Room Air MDM MDM MDM Narrative Medical decision making narrative: patient is a 24-year-old female who presented to the emerged part with a chief complaint of painful urination, back pain fever and not feeling well. On the differential diagnose includes but not limited to UTI, pyelonephritis, urolithiasis, , COVID/flu. Once workup is obtained reviewed she will be reevaluated. Patient will be given IV fluids 30 cc/kg bolus. Patient will was given Tylenol for her fever. Patient was given 2 g Rocephin here in the emergency department 194. Patient CBC was reviewed and showed no evidence leukocytosis white blood count normal at 10.8, hemoglobin 14.6, platelet count was 188. Patient's INR normal 1.1, PT of 14.5. Patient sodium normal 130, potassium normal 3.4, creatinine was normal at 0.93. Patient's AST and ALT are 28 and 50 respectively. Patient's lipase normal at 19, test negative. Patient urinalysis did show 250 blood with 500 leukocyte esterase greater than 100 white cells and 3+ bacteria this was sent for culture. Patient's CT abdomen pelvis with IV contrast reviewed showed no acute abdominal pelvic findings. She has diffuse bladder wall thickening which may represent secondary to incomplete distention or developing urinary tract infection which is likely the case. Diffuse hepatic steatosis. Patient tested negative for COVID flu and RSV. On reevaluation the patient she is feeling better her heart rate has improved after IV fluids. She was advised to take Tylenol for fever control and for pain control she states that she does not take NSAIDs secondary to what she has been told in the past about her kidney issues. Should be given Endocet and Zofran for severe pain. Should be given Keflex and was advised to follow-up with her primary care physician as well as she will be referred to urology. She will be encouraged return with worsening symptoms or concerns. She is agreeable this plan as well as her significant other at bedside all questions turns answered she was discharged home in stable condition. Lab Data Labs: Laboratory Results - last 24 hr 01/02/25 01/02/25 01/02/25 18:54 18:54 19:55 WBC Cancelled 10.8 Corrected WBC Cancelled RBC Cancelled 4.74 Hgb Cancelled 14.6 Hct Cancelled 41.9 MCV Cancelled 88.4 MCH Cancelled 30.8 MCHC Cancelled 34.8 RDW Std Deviation Cancelled 40.1 RDW Coeff of Brittany Cancelled 12.4 Plt Count Cancelled 188 MPV Cancelled 10.2 Immature Gran % (Auto) Cancelled 0.600 Neut % (Auto) Cancelled 87.5 H Lymph % (Auto) Cancelled 5.9 L [place] % (Auto) Cancelled 5.9 Eos % (Auto) Cancelled 0.0 Baso % (Auto) Cancelled 0.1 Absolute Neuts (auto) Cancelled 9.4 H Absolute Lymphs (auto) Cancelled 0.64 L Total Counted Cancelled Neutrophils % (Manual) Cancelled Band Neutrophils % Cancelled Lymphocytes % (Manual) Cancelled Monocytes % (Manual) Cancelled Eosinophils % (Manual) Cancelled Basophils % (Manual) Cancelled Metamyelocytes % Cancelled Myelocytes % Cancelled Promyelocytes % Cancelled Blast Cells % Cancelled Plasma Cell % (Manual) Cancelled Other Cells % Cancelled Nucleated RBC % Cancelled 0 Nucleated RBCs/100 WBC Cancelled Differential Comment Cancelled Diff Path Review Cancelled Hypersegmented Neuts Cancelled Atypical Lymphocytes Cancelled Reactive Lymphocytes Cancelled Smudge Cells Cancelled Toxic Granulation Cancelled Toxic Vacuolation Cancelled Dohle Bodies Cancelled Cecy Rods Cancelled Platelet Estimate Cancelled Plt Morphology Comment Cancelled RBC Morphology Cancelled Cancelled Polychromasia Cancelled Hypochromasia Cancelled Basophilic Stippling Cancelled Anisocytosis Cancelled Microcytosis Cancelled Macrocytosis Cancelled Spherocytes Cancelled Sickle Cells Cancelled Target Cells Cancelled Tear Drop Cells Cancelled Ovalocytes Cancelled Stomatocytes Cancelled [place] Bodies Cancelled [place] Cells Cancelled Bite Cells Cancelled Crenated Cell Cancelled Acanthocytes (Spur) Cancelled Rouleaux Cancelled Schistocytes Cancelled PT 14.5 INR 1.1 APTT 33.7 Sodium 138 Potassium 3.4 Chloride 102 Carbon Dioxide 23.0 Anion Gap 13 BUN 12 Creatinine 0.93 Estim Creat Clear Calc 94.15 Est GFR (MDRD) Non-Af 87 BUN/Creatinine Ratio 13.3 Glucose 109 H Lactic Acid 1.1 Calcium 9.6 Total Bilirubin 0.96 AST 28 ALT 50 H Alkaline Phosphatase 69 Total Protein 7.9 Albumin 4.5 Globulin 3.4 Albumin/Globulin Ratio 1.3 Lipase 19 Serum , Qual NEGATIVE Urine Color Yellow Urine Clarity Cloudy Urine pH 5.0 Ur Specific [place] 1.015 Urine Protein 100 H Urine Glucose (UA) Normal Urine Ketones 5 H Urine Occult Blood 250 H Urine Nitrite Negative Urine Bilirubin Negative Urine Urobilinogen Normal Ur Leukocyte Esterase 500 H Urine RBC 5-10 SEEN Urine WBC >100 SEEN Ur Squamous Epith Cells 5-10 SEEN Urine Bacteria 3+ Urine Mucus 0 SEEN Radiography Diagnostic Testing: Clinical Impression(s) from Imaging Studies Abdomen/Pelvis CT 01/02/25 20:50 IMPRESSION: 1. No acute abdominopelvic finding. 2. Diffuse bladder wall thickening, which may be secondary to incomplete distention or developing urinary tract infection. Correlation with urinalysis recommended. 3. Diffuse hepatic steatosis. Reading Location: [facility] Discharge Plan Triage Chief Complaint: Fever Other Complaint: Complaint Nausea/Vomiting ED Provider: Mendez Gardner Dx/Rx/DC Orders Clinical Impression: Urinary tract infection Prescriptions: New cephalexin 500 mg capsule 500 mg PO Q6H 5 Days Qty: 20 0RF ondansetron 4 mg tablet,disintegrating 4 mg PO Q6H PRN (Reason: nausea and vomiting) Qty: 20 0RF oxycodone-acetaminophen [Endocet] 5-325 mg tablet 1 tab PO Q4H PRN (Reason: pain) 2 Days Qty: 8 0RF No Action 1 mg Tablet 1 tab PO DAILY Primary Care Provider: Care Physician,No Primary Referrals: Care Physician,No Primary [Primary Care Provider] - Deanne Castaneda MD [Med Staff - Active Staff] - Shelby Ferreira, BEARING INSPECTOR-C [[facility]] - Activity Restrictions/Additional Instructions: Take prescriptions as prescribed do not operate anything under the influence of the Endocet it can make you tired and sleepy. Use the Zofran with this medication as will make you nauseous. Return with worsening symptoms or other concerns. Take antibiotics as prescribed. Follow-up on urine culture as well. Print Language: B[place] Disposition Disposition: Home, Self Care
== END 2025-01-02 22:58 | disposition home or self-care (01) ==
PROVIDERS: Emergency Provider Emergency Medicine; Visit Provider Emergency Medicine
DX: N39.0 Urinary tract infection, site not specified (principal); Z87.440 Personal history of urinary (tract) infections; R31.9 Hematuria, unspecified
CPT/HCPCS: 74177; 80053; 81001; 83605; 83690; 84703; 85025; 85610; 85730; 87040; 87086; 87088; 87186; 87631; 96361; 96365; 96375; 99285; Q9967; J0696; J2405

== ENCOUNTER → 2025-03-13 | Outpatient (CLI) | payer BC, SELFPAY ==
[2025-03-13 13:48] LABS: hCG Titer Quant., Serum 3759 mIU/mL (<9 non-preg)
== END | disposition home or self-care (01) ==
LOC: LAB 12:21
PROVIDERS: Referring Provider Nurse Practitioner Women's Health; Visit Provider Nurse Practitioner Women's Health
DX: O20.9 Hemorrhage in early pregnancy, unspecified (principal); Z3A.00 Weeks of gestation of pregnancy not specified
CPT/HCPCS: 36415; 84702

== ENCOUNTER → 2025-03-15 | Outpatient (CLI) | payer BC, SELFPAY ==
[2025-03-15 13:04] LABS: hCG Titer Quant., Serum 7025 mIU/mL (<9 non-preg)
== END | disposition home or self-care (01) ==
PROVIDERS: Nurse Practitioner Women's Health; Referring Provider Advanced Practice Midwife; Visit Provider Advanced Practice Midwife
DX: O20.9 Hemorrhage in early pregnancy, unspecified (principal); Z3A.00 Weeks of gestation of pregnancy not specified
CPT/HCPCS: 36415; 84702

== ENCOUNTER → 2025-03-15 | Outpatient (CLI) | payer BC, SELFPAY ==
--- NOTE | 2025-03-15 14:41 | US_ITS ---
PROCEDURE: TRANSVAGINAL W/PREG US 03/15/2025 REASON FOR EXAM: BLEEDING EARLY IN TECHNIQUE: Grayscale, color Doppler, and spectral Doppler ultrasound of the pelvis obtained transvaginally. COMPARISON: CT abdomen and pelvis on 01/03/2020 FINDINGS: The uterus measures 8.6 x 4.7 x 6.3 cm for volume of 133.5 mL. There is a single well-formed intrauterine gestational sac, with a mean sac diameter of 0.8 cm, and containing a yolk sac measuring 0.3 cm. No embryo is identified at this time. There is an avascular hypoechoic region peripheral to the gestational sac measuring 0.9 x 0.4 x 0.8 cm. The right ovary measures 2.3 x 1.0 x 1.4 cm for volume of 1.6 mL. The left ovary measures 2.6 x 2.3 x 2.2 cm for volume of 6.6 mL. No suspicious ovarian lesion. Normal waveforms. DIMENSIONS: Parameter Measurement / EGA Gestational Sac: 0.8 cm/5 weeks 4 days +/-10 days Yolk Sac: 0.3 cm ESTIMATED GESTATIONAL AGE: By Ultrasound: 5 weeks 4 days By LMP: 5 weeks 6 days ESTIMATED DATE OF DELIVERY: By Ultrasound: 11/11/2025 By LMP: 11/09/2025 US/Transvaginal w/Preg US IMPRESSION: 1. Definite intrauterine , without embryo identified at this time. E stimated gestational age of 5 weeks 4 days based on mean sac diameter, which is concordant with estimated gestational age of 5 w eeks 6 days by LMP. Recommend continued clinical follow-up. 2. Small perigestational hemorrhage. Reading Location: [facility]
== END | disposition home or self-care (01) ==
LOC: US 14:40
PROVIDERS: Referring Provider Nurse Practitioner Women's Health; Visit Provider Nurse Practitioner Women's Health
DX: O20.9 Hemorrhage in early pregnancy, unspecified (principal); Z3A.00 Weeks of gestation of pregnancy not specified
CPT/HCPCS: 76817

== ENCOUNTER → 2025-04-09 | Outpatient (CLI) | payer BC, SELFPAY ==
[2025-04-09 17:36] LABS: Protein, Urine (Random) 15.6 mg/dL (0.0-12.0); Protein:Creat Ratio 58 mg/g CRE (0-200)
[2025-04-12 06:08] LABS: Chlamydia By Nucleic Acid AMP Negative (Negative); Gonococcus By Nucleic Acid AMP Negative (Negative)
[2025-04-12 10:51] LABS: HPV Reflexed? NOT INDICATED
== END | disposition home or self-care (01) ==
LOC: LABSPEC 16:36
PROVIDERS: Referring Provider Nurse Practitioner Women's Health; Visit Provider Nurse Practitioner Women's Health
DX: O09.90 Supervision of high risk pregnancy, unspecified, unspecified trimester (principal); Z3A.00 Weeks of gestation of pregnancy not specified; Z12.4 Encounter for screening for malignant neoplasm of cervix; Z87.59 Personal history of other complications of pregnancy, childbirth and the puerperium
CPT/HCPCS: 82570; 84156; 87086; 87088; 87491; 87591; 88175; G0145

== ENCOUNTER → 2025-05-07 | Outpatient (CLI) | payer BC, SELFPAY ==
[2025-05-07 16:28] LABS: Hematocrit 36.6 % (37-47); Hemoglobin 12.8 g/dL (12.0-15.0); Immature Granulocytes Count 0.040 X10^3/uL (0.0-0.0); Mean Corp Hgb Conc 35.0 g/dL (32-36); Mean Corpuscular Volume 88.2 fL (81-99); Mean Platelet Vol. 10.7 fl (6.2-12.0); NRBC Flagged by Analyzer 0 % (0-5); Platelet Count 180 K/mm3 (150-450); RBC Distribution Width CV 12.5 % (11.6-14.6); RBC Distribution Width SD 39.5 fl (35.1-43.9); Red Blood Count 4.15 M/mm3 (4.2-5.4); White Blood Count 7.8 K/mm3 (4.4-11.0)
[2025-05-07 17:25] LABS: AST(SGOT) 43 U/L (<=31); Alanine Aminotransfer ALT/SGPT 58 U/L (<=34); Albumin, Serum 4.2 g/dL (3.5-5.0); Alkaline Phosphatase 62 U/L (35-104); Anion Gap 16 (5-15); BUN 6 mg/dL (4-19); BUN/Creat Ratio 10.7 RATIO (10-20); Calcium,Total 9.5 mg/dL (7.6-11.0); Carbon Dioxide 17.7 mmol/L (21.0-32.0); Chloride 102 mmol/L (98-108); Globulin 2.7 g/dL (2.2-4.2); Glucose 110 mg/dL (70-99); HIV Nonreactive (Nonreactive); Hepatitis B Surface Antigen Nonreactive (Nonreactive); Hepatitis C Antibody Nonreactive (Nonreactive); Potassium 3.7 mmol/L (3.3-5.1); Syphilis Antibodies Nonreactive (Nonreactive)
== END | disposition home or self-care (01) ==
LOC: BWCLAB 15:20
PROVIDERS: Nurse Practitioner Women's Health; Visit Provider Advanced Practice Midwife
DX: O09.90 Supervision of high risk pregnancy, unspecified, unspecified trimester (principal); Z3A.00 Weeks of gestation of pregnancy not specified; Z87.59 Personal history of other complications of pregnancy, childbirth and the puerperium; O99.210 Obesity complicating pregnancy, unspecified trimester
CPT/HCPCS: 36415; 80053; 83036; 85025; 86703; 86762; 86780; 86803; 86850; 86900; 86901; 87340

== ENCOUNTER → 2025-05-14 | Outpatient (CLI) | payer BC, SELFPAY ==
[2025-05-14 12:18] LABS: Hematocrit 36.8 % (37-47); Hemoglobin 13.0 g/dL (12.0-15.0); Immature Granulocytes Count 0.030 X10^3/uL (0.0-0.0); Mean Corp Hgb Conc 35.3 g/dL (32-36); Mean Corpuscular Volume 87.6 fL (81-99); Mean Platelet Vol. 10.3 fl (6.2-12.0); NRBC Flagged by Analyzer 0 % (0-5); Platelet Count 198 K/mm3 (150-450); RBC Distribution Width CV 12.9 % (11.6-14.6); RBC Distribution Width SD 39.9 fl (35.1-43.9); Red Blood Count 4.20 M/mm3 (4.2-5.4); White Blood Count 7.7 K/mm3 (4.4-11.0)
[2025-05-14 13:25] LABS: AST(SGOT) 36 U/L (<=31); Alanine Aminotransfer ALT/SGPT 47 U/L (<=34); Albumin, Serum 4.2 g/dL (3.5-5.0); Alkaline Phosphatase 61 U/L (35-104); Anion Gap 16 (5-15); BUN 7 mg/dL (4-19); BUN/Creat Ratio 10.7 RATIO (10-20); Calcium,Total 9.5 mg/dL (7.6-11.0); Carbon Dioxide 18.6 mmol/L (21.0-32.0); Chloride 102 mmol/L (98-108); Globulin 2.8 g/dL (2.2-4.2); Glucose 92 mg/dL (70-99); Potassium 3.8 mmol/L (3.3-5.1)
== END | disposition home or self-care (01) ==
PROVIDERS: Referring Provider Obstetrics & Gynecology; Visit Provider Obstetrics & Gynecology
DX: R74.8 Abnormal levels of other serum enzymes (principal)
CPT/HCPCS: 36415; 80053; 85025

== ENCOUNTER → 2025-05-30 | Outpatient (CLI) | payer BC, SELFPAY ==
[2025-05-30 11:36] LABS: AST(SGOT) 29 U/L (<=31); Alanine Aminotransfer ALT/SGPT 35 U/L (<=34); Albumin, Serum 4.0 g/dL (3.5-5.0); Alkaline Phosphatase 56 U/L (35-104); Anion Gap 14 (5-15); BUN 6 mg/dL (4-19); BUN/Creat Ratio 10.5 RATIO (10-20); Calcium,Total 9.3 mg/dL (7.6-11.0); Carbon Dioxide 20.0 mmol/L (21.0-32.0); Chloride 104 mmol/L (98-108); Globulin 2.6 g/dL (2.2-4.2); Glucose 92 mg/dL (70-99); Potassium 3.8 mmol/L (3.3-5.1)
== END | disposition home or self-care (01) ==
PROVIDERS: Internal Medicine Cardiovascular Disease; Referring Provider Obstetrics & Gynecology; Visit Provider Obstetrics & Gynecology
DX: N26.1 Atrophy of kidney (terminal) (principal); R00.2 Palpitations; K76.0 Fatty (change of) liver, not elsewhere classified; R74.8 Abnormal levels of other serum enzymes
CPT/HCPCS: 36415; 80053; 84443; 87077; 87086; 87088

== ENCOUNTER → 2025-07-03 | Outpatient (CLI) | payer BC, SELFPAY | END | disposition home or self-care (01) | LOC: LABSPEC 16:22 | PROVIDERS: Visit Provider Nurse Practitioner Women's Health | DX: L98.9 Disorder of the skin and subcutaneous tissue, unspecified (principal) | CPT/HCPCS: 87070; 87205 ==

== ENCOUNTER → 2025-07-09 | Outpatient (CLI) | payer BC, SELFPAY ==
--- OUTSIDE RECORDS SUMMARY | 2025-06-26 12:53 | XMS RPT_ITS ---
Author Name Auto Generated Organization [facility] Care Team Providers Care Director Of Direct Marketing Name Role Phone RAMA AVALOS Referring Unavailab CARA Morrison Attending Unavailable NO PRIMARY MD CARMENZA Primary Care Unavailable RAMA AVALOS Referring Unavailab CARA Morrison Attending Unavailable NO PRIMARY CAREMD Primary Care Unavailable RAMA AVALOS Referring Unavailab le NATHAN PRIMARY CAREMD Primary Care Unavailable SAMANTA CARIAS Attending Unavailable MAST KIRSTEN COOK Attending Unavailabl e MAST KIRSTEN COOK Primary Care Unavailabl e PROBLEMS No Problem Records Found PROCEDURES No Procedure Records Found RESULTS PROGRESS NOTE Observed: 06/20/2025 1:30 PM Status: COMPLETED Source: [facility]- MEDICINE CONSULT Referring/Requesting Provider: Rama Avalos DO PCP: No Primary CareMd MD INDICATION FOR CONSULT: maternal h/o renal atrophy, fatty liver w/ elevated LFT's HISTORY OF PRESENT ILLNESS: Patient is a 24 y.o. at 19w5d who presents for consultation regarding maternal h/o renal atrophy, fatty liver w/ elevated LFT's. She reports she was seen in the emergency department prior to with nausea, vomiting, fever and flank pain. Imaging of her abdomen and pelvis was done and that is what showed fatty liver. She was empirically treated for pyelonephritis, however she reports her urine culture was negative. She may have had a viral syndrome causing her elevated LFTs. also complicated by obesity, current BMI 34.9. HA1c reviewed on her phone and was normal 5.1% on 05/07/25. She has improved her diet since that time. She last about 20 pounds. She denies nausea, vomiting. Overall she feels well. OB History Para Term AB Living 3 1 1 1 1 SAB IAB Ectopic Multiple Live Births 1 1 # Outcome Date GA Lbr Logan/2nd Weight Sex Type Anes PTL Lv 3 Current 2 Term 03/30/23 39w0d 2.75 kg F Vag-Vacuum EPI FATIMAH Comments: SROM, GHTN, SGA/IUGR 1 SAB 10/11/18 4w0d Past Medical History: Diagnosis Date Anxiety Attention-deficit hyperactivity disorder Chronic kidney disease kidney stones Congenital vxjlse-rfnwikv-mynqp reflux Depression Elevated liver enzymes Headache in , antepartum headaches with dizziness and N/V; pt reports elevated BP's with events. Heart palpitations History of gestational hypertension History of prior with IUGR Liver disease Obesity BMI 37.9 Renal atrophy left UTI (urinary tract infection) Vaginal Pap smear, abnormal normal since Past Surgical History: Procedure Laterality Date WISDOM TOOTH EXTRACTION PERTINENT FAMILY HISTORY: Family History Problem Relation Age of Onset Heart Disease Mother Diabetes Mother High Blood Pressure Father Mental Illness Brother Bipolar Disorder Brother Asthma Brother MEDS: Outpatient Medications Marked as Taking for the 06/20/25 encounter (Office Visit) with Cara Flowers, DO Medication Sig Dispense Refill aspirin EC (ECOTRIN LOW STRENGTH) 81 MG EC tablet Take 2 Tablets (162 mg) by mouth daily Vit-Fe Fumarate-FA ( PO) Take by mouth ALLERGY: Allergies[1] REVIEW OF SYSTEMS: ROS see hpi. PHYSICAL EXAM: VITAL SIGNS: BP 119/74 Pulse 102 Resp 16 Ht (!) 154.9 cm Wt 83.9 kg (185 lb) LMP 02/02/2025 SpO2 98% BMI 34.96 kg/m Physical Exam AAOx3, NAD Resp effort normal No jaundice Gravid IMAGIN. Single living intrauterine at 19w 5d with biometry consistent with clinical dates. 2. Normal anatomical survey with limitations noted above. 3. Amniotic fluid appeared normal. 4. Placenta is anterior. 5. Transvaginal cervical length to evaluate for risk for labor was performed and appeared borderline short, 27.1 mm. IMPRESSION AND RECOMMENDATIONS: Manish is a 24 y.o. at 19w5d with Active Non-Hospital Problems Diagnosis Date Noted ARAIZA (nonalcoholic steatohepatitis) 06/20/2025 - 01/02/25 prior to had "marked hepatic steatosis" noted on imaging - History of mildly elevated LFTs, last AST and ALT normal on 05/30 (reviewed on Manish' phone). - We reviewed increased risk of , preeclampsia and HELLP syndrome with ARAIZA. - Has repeat LFTs scheduled with OB provider. Recommendations: Nutrition consult (ordered). Daily exercise 30-60 mins. Check hepatitis panel if not yet done. If repeat LFTs are elevated, refer to local supervisor gate services for further evaluation. Frequent UTI 06/20/2025 - History of urinary reflux, outgrew at age 4, frequent UTIs and stone. - Normal Creatine (0.57 on 05/30/25). - Recommend urology referral. - Urine culture as needed. Obesity affecting in second trimester 06/20/2025 Body mass index is 34.96 kg/m . Obesity complicating is associated with increased maternal and risks including: gestational diabetes, hypertensive disorders, iatrogenic delivery, dysfunctional labor, postterm , large for gestational age infant, shoulder dystocia, obstructive sleep apnea, hemorrhage, stillbirth, anomalies, delivery and postcesarean complications. [place] of medicine recommend weight gain in : Obese (all classes) > 30: total weight gain 11-20 lbs, 0.5 lb per week in the second and third trimester. Nutrition consult recommended. Daily exercise recommended. Screen for GDM between 24-28 weeks. 06/20/2025 total weight gain: -11.3 kg (-25 lb) Follow up for ultraound with MFM in 1 week for TVCL, 2 weeks for TVCL and FU anatomy. Further FU depends on cervical length findings. Chart review and preparation: 12 minutes. Face to face: 15 minutes. Documentation and care coordination: 13 minutes. Total time spent on patient care today: 40 minutes. [1] Allergies Allergen Reactions Lexapro [Escitalopram] Other (See Comments) Suicidal ideations ALLERGIES DATE TYPE / CODE NAME / CODE REACTION SEVERITY [id number] ESCITALOPRAM Suicidal ideations [facility] ENCOUNTERS ADMIT/DISCHARGE ACCOUNT NUMBER ADMITTING ENCOUNTER CLASS LOC ATION SOURCE 06/26/2025/ 5 [id number] Ambulatory Building:[facility] 06/20/2025/ 5 [id number] Ambulatory Building:[facility] 06/20/2025/ 5 [id number] Ambulatory Building:[facility] 08/03/2024/ 4 [id number] Ambulatory [facility] MAIN[facility]: [facility]ARANTOR PAYER SUBSCRIBER SOURCE 06/26/2025 MANISH LIMONOB: [id number] [place], [place] [address]Wiw: ~[phone] (HP) Primary Insurance:ANTHEMPol icy Number: [id number] ve Date: OLGA LIDIA LIMONOB: [id number] [place] [address] [facility] 06/20/2025 MANISH FRYDOB: [id number] [place], [place] [address]Yud: ~(224 (HP) Primary Insurance:ANTHEMPol icy Number: [id number] ve Date: OLGA LIDIA [id number] [place] [address] [facility] 06/20/2025 MANISH CROCKETTYDOB: [id number] [place], [place] [address]Psn: ~([phone] (HP) Primary Insurance:ANTHEMPol icy Number: [id number] ve Date: OLGA LIDIA [id number] [place] [address] [facility] 08/03/2024 MANISH CROCKETTYDOB: [id number] [facility] [place] [email or web address]: (HP) Primary Insurance:UM INSCOPolicy Number: [id number] Date:[id number] Name:CPO [place] [address]ZY: OLGA LIDIA LIMONOB: [id number] [facility] [place] [address]Ila: (HP) (WP) [facility]
[2025-07-09 10:40] LABS: Hematocrit 31.9 % (37-47); Hemoglobin 11.6 g/dL (12.0-15.0); Immature Granulocytes Count 0.050 X10^3/uL (0.0-0.0); Mean Corp Hgb Conc 36.4 g/dL (32-36); Mean Corpuscular Volume 89.6 fL (81-99); Mean Platelet Vol. 10.1 fl (6.2-12.0); NRBC Flagged by Analyzer 0 % (0-5); Platelet Count 180 K/mm3 (150-450); RBC Distribution Width CV 14.1 % (11.6-14.6); RBC Distribution Width SD 45.9 fl (35.1-43.9); Red Blood Count 3.56 M/mm3 (4.2-5.4); White Blood Count 8.5 K/mm3 (4.4-11.0)
[2025-07-09 10:49] LABS: Creatinine, Urine (random) 261.00 mg/dL (28.00-217.00); Protein, Urine (Random) 73.9 mg/dL (0.0-12.0); Protein:Creat Ratio 283 mg/g CRE (0-200)
[2025-07-09 11:21] LABS: AST(SGOT) 23 U/L (<=31); Alanine Aminotransfer ALT/SGPT 20 U/L (<=34); Albumin, Serum 3.9 g/dL (3.5-5.0); Alkaline Phosphatase 65 U/L (35-104); Anion Gap 14 (5-15); BUN 6 mg/dL (4-19); BUN/Creat Ratio 10.5 RATIO (10-20); Calcium,Total 9.1 mg/dL (7.6-11.0); Carbon Dioxide 18.7 mmol/L (21.0-32.0); Chloride 105 mmol/L (98-108); Globulin 2.8 g/dL (2.2-4.2); Glucose 91 mg/dL (70-99); Potassium 3.7 mmol/L (3.3-5.1)
== END | disposition home or self-care (01) ==
PROVIDERS: Referring Provider Obstetrics & Gynecology; Visit Provider Obstetrics & Gynecology
DX: O09.92 Supervision of high risk pregnancy, unspecified, second trimester (principal); R74.8 Abnormal levels of other serum enzymes; Z3A.00 Weeks of gestation of pregnancy not specified
CPT/HCPCS: 36415; 80053; 82570; 84156; 85025

== ENCOUNTER 2025-07-29 23:49 | Outpatient (CLI) | payer BC, SELFPAY ==
[2025-07-29] VITALS (8 sets, daily range): BP systolic 100–140; BP diastolic 67–111; PULSE 92–130; RESP 12–22; TEMP 36.6–36.8; O2SAT 97–100; BMI 35.9
--- NOTE | 2025-07-29 20:59 | CT_ITS ---
PROCEDURE: CTA CHEST W/WO CONTRAST 07/29/2025 REASON FOR EXAM: DYSPNEA AND . SHIELD ABD TECHNIQUE: Procedure Code: [id number] Modality: CT Procedure: CTA CHEST W/WO CONTRAST Multiplanar Sagittal and Coronal images were obtained. CONTRAST: VOLUME: mL One or more dose reduction techniques were used (e.g., Automated exposure control, adjustment of the mA and/or kV according to patient size, use of iterative reconstruction technique). COMPARISON: CT abdomen and pelvis dated 01/02/2025. FINDINGS: No filling defect suggestive of a pulmonary embolism is identified to the secondary branches of the pulmonary arteries. The lungs are clear. No airspace consolidation, pulmonary nodule, or pleural effusion. The heart and great vessels appear unremarkable. No thoracic lymphadenopathy. No acute osseous abnormality. Hepatomegaly with fatty infiltration, unchanged.. A poorly marginated focus of enhancement in the right lobe of the liver is unchanged from the previous study. CT/CTA Chest W/WO Contrast IMPRESSION: No CT evidence of a pulmonary embolism. No CT evidence of an acute cardiothoracic process. Hepatomegaly with fatty infiltration, unchanged. Stable poorly marginated focu s of enhancement in the right lobe of the liver. Consider follow-up imaging in 6-12 months to evaluate for continued stability. Reading Location: [id number]
--- NOTE | 2025-07-29 20:59 | EKG12_ITS ---
Test Reason : SOB Blood Pressure : */* mmHG Vent. Rate : 107 BPM Atrial Rate : 107 BPM P-R Int : 130 ms QRS Dur : 74 ms QT Int : 328 ms P-R-T Axes : 36 61 -29 degrees QTcB Int : [address] & T wave abnormality, consider inferior ischemia Abnormal ECG Confirmed by LOR AN, MORRIS ([id number]), industrial editor BEAU SHIRLEY ([id number]) on 07/30/2025 10:40:55 AM Referred By: Lupe Mead Confirmed By: MORRIS HOROWITZ MD
--- NOTE | 2025-07-29 20:59 | EKG12_ITS ---
Test Reason : SOB Blood Pressure : */* mmHG Vent. Rate : 107 BPM Atrial Rate : 107 BPM P-R Int : 130 ms QRS Dur : 74 ms QT Int : 328 ms P-R-T Axes : 36 61 -29 degrees QTcB Int : [address] & T wave abnormality, consider inferior ischemia Abnormal ECG Confirmed by LOR AN, MORRIS ([id number]), city editor BEAU SHIRLEY ([id number]) on 07/30/2025 10:40:55 AM Referred By: Lupe Mead Confirmed By: MORRIS HOROWITZ MD
--- NOTE | 2025-07-29 21:01 | EDS_ITS ---
HPI History of Present Illness Chief Complaint: Shortness of Breath Informant: patient Onset/Context/Timing Onset: Days Context: gradual Timing: Continuous Quality: Positive for Dyspnea on exertion Current Severity: Moderate Maximum Severity: Moderate Worsened by: Exertion Relieved by: Nothing Associated Symptoms Chest Pain: Positive for None Narrative Narrative: 24-year-old female G3, P1 Ab1 with having a miscarriage. Currently 25 weeks . Seeing [place] GROUP SALES COORDINATOR. States that she has had bilateral lower rib cage pain for the last 2 weeks and started having shortness of breath last 2 days. No anterior chest pain. No hemoptysis. She does have edema around both ankles. Denies any hemoptysis or chest pain. No history of DVT or PE in the past. She has never had -induced hypertension or eclampsia or preeclampsia with the other pregnancies. But they have been watching her blood pressures with this 1. PE Risk Factors: Positive for - (25 weeks .); Negative for Cancer, OCP + Smoking + > 35, Prior DVT or PE, Recent immobilization, Recent surgery or Recent travel Prior similar symptoms: No Recent Illness/Hospitalization: No PFSH PFSH Medical History Fatty liver Renal atrophy, left Elevated liver enzymes Heart palpitations History of gestational hypertension Obesity affecting 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 jsoxyr-biaodnx-himob reflux Home Medications ?Medication ?Instructions ?Recorded ?Last Taken ?Type ocbizprr-lry-Do-FA 1 mg 1 tab PO DAILY Unknown History tablet metoclopramide HCl 10 mg tablet 10 mg PO TID nausea #9 0 tabs 07/09/25 Unknown Rx (Reglan) Allergy/AdvReac Type Severity Reaction Status Date / Time escitalopram (From Lexapro) AdvReac Severe SUICIDAL Verified 07/29/25 19:56 citalopram hydrobromide AdvReac Other Verified 07/29/25 19:56 (From Celexa) Family History Grandmother Breast cancer Brain cancer Grandfather CVA (cerebral vascular accident) Mother Diabetes Heart failure MRSA carrier History of recurrent miscarriages Father Hypertension Surgical History [place] teeth removed Social History adopted: No household members: spouse and children housing: house number of children: 1 current occupation: [employer] current occupational exposures/hazards: No pets and animals: Yes (Not manage literbox) pets and animals: cat(s) history of recent travel: No sexually active: Yes Smoking Status: Never smoker second hand exposure: No ( quit vaping 2 months ago) alcohol intake: never substance use type: does not use well-balanced diet: rarely or never caffeine: Yes Type: carbonated beverages Number of servings: 1 eating out: 1-3 times/week during the past year weight has: increased > 10 lbs what type of physical activity do you participate in: walking frequency: 3-4 times per week duration: 15-30 minutes/day kalpana/church: Taoism seatbelt use: always do you feel safe at home: Yes 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: : 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 Shortness of breath. Constitutional Constitutional ED: Denies chills or fever(s) Eyes Eyes: Denies blurry vision ENT ENT ED: Denies ear pain Cardiovascular Cardiovascular: Denies chest pain Respiratory/Chest Respiratory/Chest: Reports dyspnea; Denies cough Gastrointestinal Gastrointestinal: Denies abdominal pain Genitourinary Genitourinary ED: Denies dysuria or hematuria Musculoskeletal Musculoskeletal: Denies arthralgias Integumentary Denies abscess or Abrasions Neurologic Neurologic: Reports headache(s) Psychiatric Psychiatric: Denies anxiety or depression Endocrine Endocrinology: Denies cold intolerance Hematologic/Lymphatic Hematologic/Lymphatic: Denies easy bleeding, easy bruising or lymphadenopathy Allergic/Immunologic Allergic/Immunologic ED: Denies mouth swelling, tongue swelling or urticaria EXAM Physical Exam Narrative Exam Narrative: 24-year-old female. Vital signs are stable other than her initial blood pressure is 106/60 7 repeat was 140/111. Heart rates about 110. Pulse ox 100% on room air no signs hypoxia. H EENT exam pupils round react light. Moist mutes members. Neck nontender no JVD. Back nontender. Lungs clear to au scultation bilaterally. Heart regular rhythm rate about 110 no murmur. Chest wall ribs anteriorly nontender. Abdomen soft nondistended normal bowel sounds no peritoneal signs. Gravid nontender uterus. Moving all 4 extremities. Trace edema in the upper and lower extremities. Calves nontender no cords. Neurologically she is awake alert. Answering questions following commands. Const Vital Signs: 07/29/25 19:56 07/29/25 20:35 07/29/25 20:56 Temperature 98.3 F Temperature Source Oral Pulse Rate 130 H 110 H Respiratory Rate 22 H 17 Respiratory Effort Short of Breath Respiratory Depth Deep Respiratory Pattern Normal Blood Pressure 106/67 140/111 H Blood Pressure Mean 80 120 Pulse Ox 97 100 Oxygen Delivery Method Room Air Room Air Room Air 07/29/25 20:59 07/29/25 21:07 07/29/25 22:00 Temperature Temperature Source Pulse Rate 117 H 104 H Respiratory Rate 20 H Respiratory Effort Respiratory Depth Respiratory Pattern Blood Pressure 124/77 H 139/71 H Blood Pressure Mean 92 93 Pulse Ox 100 100 100 Oxygen Delivery Method Room Air Room Air Room Air MDM MDM MDM Narrative Medical decision making narrative: 24-year-old with shortness of breath 25 weeks . This could be secondary to blood clots or pulmonary edema or preeclampsia. She will undergo cardiac/PE workup. Repeat exam at 10:54 PM patient doing well. Clinically looks well. Exam unchanged. Her current blood pressure is 110/60. Her heart rate is in the 90s. We discussed all of her test results. She will be discharged home outpatient follow-up. She sees her GROUP SALES COORDINATOR this coming . She knows to watch her blood pressures. I spoke with the quantity surveyor on-call for their group she and I are comfortable patient be discharged home with outpatient follow-up this week. History & Record Review Discussion w/independent historian: Patient Additional record(s) reviewed:: Prior outpatient record, Prior ED visit and Prior labs Lab Data Attestation: I reviewed the patient's lab results. Lab results narrative: CBC shows a white count of 10 H&H 11.4 and 32.1. Platelets 204. D-dimer is elevated 0.68. Troponin is less than 6. Electrolytes show a gap of 13. Normal BUN of 7 creatinine 0.6. Glucose 93. Liver enzymes unremarkable. Lipase 19. Urinalysis shows 5-10 red cells. 3+ bacteria. No nitrites. Labs: Laboratory Results - last 24 hr 07/29/25 07/29/25 20:48 21:22 WBC 10.0 RBC 3.50 L Hgb 11.4 L Hct 32.1 L MCV 91.7 MCH 32.6 H MCHC 35.5 RDW Std Deviation 46.3 H RDW Coeff of Brittany 13.9 Plt Count 204 MPV 10.4 Immature Gran % (Auto) 0.700 Neut % (Auto) 76.1 H Lymph % (Auto) 16.5 L [place] % (Auto) 6.3 Eos % (Auto) 0.3 Baso % (Auto) 0.1 Absolute Neuts (auto) 7.6 Absolute Lymphs (auto) 1.65 Nucleated RBC % 0 D-Dimer Quant (PE/DVT) 0.68 H* Sodium 137 Potassium 3.4 Chloride 103 Carbon Dioxide 22.0 Anion Gap 13 BUN 7 Creatinine 0.60 L Estim Creat Clear Calc 142.90 Est GFR (MDRD) Non-Af 127 BUN/Creatinine Ratio 11.3 Glucose 93 Calcium 9.2 Total Bilirubin 0.26 Direct Bilirubin 0.11 AST 17 ALT 12 Alkaline Phosphatase 65 Troponin T High Sens < 6 Total Protein 6.3 Albumin 3.7 Globulin 2.6 Lipase 19 Urine Color Straw Urine Clarity Clear Urine pH 6.5 Ur Specific [place] 1.010 Urine Protein 15 H Urine Glucose (UA) Normal Urine Ketones Negative Urine Occult Blood 25 H Urine Nitrite Negative Urine Bilirubin Negative Urine Urobilinogen Normal Ur Leukocyte Esterase 500 H Urine RBC 5-10 SEEN Urine WBC 0 SEEN Ur Squamous Epith Cells 0-5 SEEN Urine Bacteria 3+ Urine Mucus 0 SEEN Radiography Diagnostic Testing: Clinical Impression(s) from Imaging Studies Chest CTA 07/29/25 20:59 IMPRESSION: No CT evidence of a pulmonary embolism. No CT evidence of an acute cardiothoracic process. Hepatomegaly with fatty infiltration, unchanged. Stable poorly marginated focus of enhancement in the right lobe of the liver. Consider follow-up imaging in 6-12 months to evaluate for continued stability. Reading Location: [id number] Discharge Plan Triage Chief Complaint: Shortness of Breath ED Provider: José Manuel Major Dx/Rx/DC Orders Clinical Impression: Acute dyspnea, Second trimester Instructions: 2nd Trimester Changes Prescriptions: No Action metoclopramide HCl [Reglan] 10 mg tablet 10 mg PO TID Qty: 90 3RF 1 mg Tablet 1 tab PO DAILY Primary Care Provider: Care Physician,No Primary Referrals: Geraldine Bradford MD [Med Staff - Active Staff, Obstetrics-Gynecology (OBGYN)] - Keep Neto appointment Care Physician,No Primary [Primary Care Provider, Medical] Activity Restrictions/Additional Instructions: Watch your blood pressure. Follow-up with Dr. Geraldine Bradford's office on for your scheduled appointment. Your tests look good tonight. Print Language: Syriac Disposition Disposition: Home, Self Care
--- NOTE | 2025-07-29 21:01 | EDS_ITS ---
HPI History of Present Illness Chief Complaint: Shortness of Breath Informant: patient Onset/Context/Timing Onset: Days Context: gradual Timing: Continuous Quality: Positive for Dyspnea on exertion Current Severity: Moderate Maximum Severity: Moderate Worsened by: Exertion Relieved by: Nothing Associated Symptoms Chest Pain: Positive for None Narrative Narrative: 24-year-old female G3, P1 Ab1 with having a miscarriage. Currently 25 weeks . Seeing [facility]STRATE[employer] REPORTS DEVELOPER. States that she has had bilateral lower rib cage pain for the last 2 weeks and started having shortness of breath last 2 days. No anterior chest pain. No hemoptysis. She does have edema around both ankles. Denies any hemoptysis or chest pain. No history of DVT or PE in the past. She has never had -induced hypertension or eclampsia or preeclampsia with the other pregnancies. But they have been watching her blood pressures with this 1. PE Risk Factors: Positive for - (25 weeks .); Negative for Cancer, OCP + Smoking + > 35, Prior DVT or PE, Recent immobilization, Recent surgery or Recent travel Prior similar symptoms: No Recent Illness/Hospitalization: No PFSH PFSH Medical History Fatty liver Renal atrophy, left Elevated liver enzymes Heart palpitations History of gestational hypertension Obesity affecting 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 jmryhr-[id number] reflux Home Medications ?Medication ?Instructions ?Recorded ?Last Taken ?Type [id number]-[id number] 1 mg 1 tab PO DAILY Unknown History tablet metoclopramide HCl 10 mg tablet 10 mg PO TID nausea #9 0 tabs 07/09/25 Unknown Rx (Reglan) Allergy/AdvReac Type Severity Reaction Status Date / Time escitalopram (From Lexapro) AdvReac Severe SUICIDAL Verified 07/29/25 19:56 citalopram hydrobromide AdvReac Other Verified 07/29/25 19:56 (From Celexa) Family History Grandmother Breast cancer Brain cancer Grandfather CVA (cerebral vascular accident) Mother Diabetes Heart failure MRSA carrier History of recurrent miscarriages Father Hypertension Surgical History [place] teeth removed Social History adopted: No household members: spouse and children housing: house number of children: 1 current occupation: [employer] current occupational exposures/hazards: No pets and animals: Yes (Not manage literbox) pets and animals: cat(s) history of recent travel: No sexually active: Yes Smoking Status: Never smoker second hand exposure: No ( quit vaping 2 months ago) alcohol intake: never substance use type: does not use well-balanced diet: rarely or never caffeine: Yes Type: carbonated beverages Number of servings: 1 eating out: 1-3 times/week during the past year weight has: increased > 10 lbs what type of physical activity do you participate in: walking frequency: 3-4 times per week duration: 15-30 minutes/day kalp[place]/mormon: Judaism seatbelt use: always do you feel safe at home: Yes 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: : 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 Shortness of breath. Constitutional Constitutional ED: Denies chills or fever(s) Eyes Eyes: Denies blurry vision ENT ENT ED: Denies ear pain Cardiovascular Cardiovascular: Denies chest pain Respiratory/Chest Respiratory/Chest: Reports dyspnea; Denies cough Gastrointestinal Gastrointestinal: Denies abdominal pain Genitourinary Genitourinary ED: Denies dysuria or hematuria Musculoskeletal Musculoskeletal: Denies arthralgias Integumentary Denies abscess or Abrasions Neurologic Neurologic: Reports headache(s) Psychiatric Psychiatric: Denies anxiety or depression Endocrine Endocrinology: Denies cold intolerance Hematologic/Lymphatic Hematologic/Lymphatic: Denies easy bleeding, easy bruising or lymphadenopathy Allergic/Immunologic Allergic/Immunologic ED: Denies mouth swelling, tongue swelling or urticaria EXAM Physical Exam Narrative Exam Narrative: 24-year-old female. Vital signs are stable other than her initial blood pressure is 106/60 7 repeat was 140/111. Heart rates about 110. Pulse ox 100% on room air no signs hypoxia. H EENT exam pupils round react light. Moist mutes members. Neck nontender no JVD. Back nontender. Lungs clear to au scultation bilaterally. Heart regular rhythm rate about 110 no murmur. Chest wall ribs anteriorly nontender. Abdomen soft nondistended normal bowel sounds no peritoneal signs. Gravid nontender uterus. Moving all 4 extremities. Trace edema in the upper and lower extremities. Calves nontender no cords. Neurologically she is awake alert. Answering questions following commands. Const Vital Signs: 07/29/25 19:56 07/29/25 20:35 07/29/25 20:56 Temperature 98.3 F Temperature Source Oral Pulse Rate 130 H 110 H Respiratory Rate 22 H 17 Respiratory Effort Short of Breath Respiratory Depth Deep Respiratory Pattern Normal Blood Pressure 106/67 140/111 H Blood Pressure Mean 80 120 Pulse Ox 97 100 Oxygen Delivery Method Room Air Room Air Room Air 07/29/25 20:59 07/29/25 21:07 07/29/25 22:00 Temperature Temperature Source Pulse Rate 117 H 104 H Respiratory Rate 20 H Respiratory Effort Respiratory Depth Respiratory Pattern Blood Pressure 124/77 H 139/71 H Blood Pressure Mean 92 93 Pulse Ox 100 100 100 Oxygen Delivery Method Room Air Room Air Room Air MDM MDM MDM Narrative Medical decision making narrative: 24-year-old with shortness of breath 25 weeks . This could be secondary to blood clots or pulmonary edema or preeclampsia. She will undergo cardiac/PE workup. Repeat exam at 10:54 PM patient doing well. Clinically looks well. Exam unchanged. Her current blood pressure is 110/60. Her heart rate is in the 90s. We discussed all of her test results. She will be discharged home outpatient follow-up. She sees her MICROSTRATEGY REPORTS DEVELOPER this coming . She knows to watch her blood pressures. I spoke with the flask fitter on-call for their group she and I are comfortable patient be discharged home with outpatient follow-up this week. History & Record Review Discussion w/independent historian: Patient Additional record(s) reviewed:: Prior outpatient record, Prior ED visit and Prior labs Lab Data Attestation: I reviewed the patient's lab results. Lab results narrative: CBC shows a white count of 10 H&H 11.4 and 32.1. Platelets 204. D-dimer is elevated 0.68. Troponin is less than 6. Electrolytes show a gap of 13. Normal BUN of 7 creatinine 0.6. Glucose 93. Liver enzymes unremarkable. Lipase 19. Urinalysis shows 5-10 red cells. 3+ bacteria. No nitrites. Labs: Laboratory Results - last 24 hr 07/29/25 07/29/25 20:48 21:22 WBC 10.0 RBC 3.50 L Hgb 11.4 L Hct 32.1 L MCV 91.7 MCH 32.6 H MCHC 35.5 RDW Std Deviation 46.3 H RDW Coeff of Brittany 13.9 Plt Count 204 MPV 10.4 Immature Gran % (Auto) 0.700 Neut % (Auto) 76.1 H Lymph % (Auto) 16.5 L [place] % (Auto) 6.3 Eos % (Auto) 0.3 Baso % (Auto) 0.1 Absolute Neuts (auto) 7.6 Absolute Lymphs (auto) 1.65 Nucleated RBC % 0 D-Dimer Quant (PE/DVT) 0.68 H* Sodium 137 Potassium 3.4 Chloride 103 Carbon Dioxide 22.0 Anion Gap 13 BUN 7 Creatinine 0.60 L Estim Creat Clear Calc 142.90 Est GFR (MDRD) Non-Af 127 BUN/Creatinine Ratio 11.3 Glucose 93 Calcium 9.2 Total Bilirubin 0.26 Direct Bilirubin 0.11 AST 17 ALT 12 Alkaline Phosphatase 65 Troponin T High Sens < 6 Total Protein 6.3 Albumin 3.7 Globulin 2.6 Lipase 19 Urine Color Straw Urine Clarity Clear Urine pH 6.5 Ur Specific [place] 1.010 Urine Protein 15 H Urine Glucose (UA) Normal Urine Ketones Negative Urine Occult Blood 25 H Urine Nitrite Negative Urine Bilirubin Negative Urine Urobilinogen Normal Ur Leukocyte Esterase 500 H Urine RBC 5-10 SEEN Urine WBC 0 SEEN Ur Squamous Epith Cells 0-5 SEEN Urine Bacteria 3+ Urine Mucus 0 SEEN Radiography Diagnostic Testing: Clinical Impression(s) from Imaging Studies Chest CTA 07/29/25 20:59 IMPRESSION: No CT evidence of a pulmonary embolism. No CT evidence of an acute cardiothoracic process. Hepatomegaly with fatty infiltration, unchanged. Stable poorly marginated focus of enhancement in the right lobe of the liver. Consider follow-up imaging in 6-12 months to evaluate for continued stability. Reading Location: [id number] Discharge Plan Triage Chief Complaint: Shortness of Breath ED Provider: José Manuel Major Dx/Rx/DC Orders Clinical Impression: Acute dyspnea, Second trimester Instructions: 2nd Trimester Changes Prescriptions: No Action metoclopramide HCl [Reglan] 10 mg tablet 10 mg PO TID Qty: 90 3RF 1 mg Tablet 1 tab PO DAILY Primary Care Provider: Care Physician,No Primary Referrals: Geraldine Bradford MD [Med Staff - Active Staff, Obstetrics-Gynecology (OBGYN)] - Keep Neto appointment Care Physician,No Primary [Primary Care Provider, Medical] Activity Restrictions/Additional Instructions: Watch your blood pressure. Follow-up with Dr. Geraldine Bradford's office on for your scheduled appointment. Your tests look good tonight. Print Language: Danish Disposition Disposition: Home, Self Care
--- OUTSIDE RECORDS SUMMARY | 2025-07-29 21:07 | XMS RPT_ITS | CCD ---
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 (1 source) Fever, unspecified; Translations: [Fever, unspecified] Onset: 03-27-2025 Episodic Genitourinary symptoms and ill-defined conditions (1 source) Dysuria; Translations: [Dysuria] Onset: 04-09-2025 Episodic Headache; including migraine (7 sources) Headache; Translations: [Headache] Onset: 07-10-2014 Episodic Hemorrhage during ; abruptio placenta; placenta previa (9 sources) Threatened miscarriage in first trimester; Translations: [Threatened ] Onset: 08-04-2022 Episodic Intestinal infection (1 source) Viral intestinal infection, unspecified; Translations: [Viral gastroenteritis] Onset: 05-31-2022 Episodic Nausea and vomiting (1 source) Nausea with vomiting, unspecified; Translations: [Nausea and vomiting, unspecified vomiting type] Onset: 05-31-2022 Episodic Other complications of (2 sources) Decreased movements, unspecified trimester, not applicable or unspecified; Translations: [Decreased movements, unspecified trimester, not applicable or unspecified] Onset: 03-09-2023 Episodic Other injuries and conditions due to external causes (2 sources) Other specified injuries of right wrist, hand and finger(s), initial encounter; Translations: [OTH SPEC INJ RT WRST HND FNGR INIT] Onset: 01-27-2021 Episodic Other non-traumatic joint disorders (7 sources) Pain in lower limb; Translations: [Pain in unspecified knee] Onset: 07-13-2013 07-13-2013 Episodic Other nutritional; endocrine; and metabolic disorders (7 sources) Unintentional weight loss; Translations: [Abnormal weight loss] Onset: 07-10-2014 Episodic Other and delivery including normal (20 sources) Normal ; Translations: [Encounter for supervision of normal first , first trimester] Onset: 08-04-2022 Episodic Other screening for suspected conditions (not mental disorders or infectious disease) (2 sources) Other specified abnormal findings of blood chemistry; Translations: [Encounter for screening for malignant neoplasm of cervix] Onset: 05-31-2022 Episodic Residual codes; unclassified (2 sources) 36 weeks gestation of ; Translations: [36 weeks gestation of ] Onset: 03-09-2023 Episodic Residual codes; unclassified (1 source) 9 weeks gestation of ; Translations: [9 weeks gestation of ] Onset: 04-09-2025 Episodic Results Test Name Value Interpretation Reference Range Facil ity CBC W/Diff, Automatedon 06-12 Absolute Lymph 1.09 X10 3/uL Normal 0.83-4.51 [facility] Comment on above: Performed By: #### L 100.0100, L500.4050 #### [facility] [address] [place], [place], [id number] Absolute Neut 6.9 X10 3/uL Normal 2.0-7.7 [facility] Comment on above: Performed By: #### L 100.0100, L500.4050 #### [facility] [address] [place], [address] Basophils/100 WBC (Bld) 0.1 % Normal 0-1 [facility] Comment on above: Performed By: #### L 100.0100, L500.4050 #### [facility] [address] [place], [address] Eosinophils/100 WBC (Bld) 0.2 % Normal 0-5 [facility] Comment on above: Performed By: #### L 100.0100, L500.4050 #### [facility] [address] [place], [address] Erythrocyte distribution width (RBC) [Ratio] 14.1 % Normal 11.6-14.6 [facility] Comment on above: Performed By: #### L 100.0100, L500.4050 #### [facility] [address] [place], [address] Hematocrit (Bld) [Volume fraction] 31.9 % Low 37-47 [facility] Comment on above: Performed By: #### L 100.0100, L500.4050 #### [facility] [address] [place], [address] Hemoglobin (Bld) [Mass/Vol] 11.6 g/dL Low 12.0-15.0 [facility] Comment on above: Performed By: #### L 100.0100, L500.4050 #### [facility] [address] [place], [address] IG% 0.600 Normal 0.0-0.9 [facility] Comment on above: Result Comment: IG% - Immature Granulocytes (promyelocytes, myelocytes and metamyelocytes) > 1% indicates that a LEFT SHIFT is Present. Performed By: #### L 100.0100, L500.4050 #### [facility] [address] [place], [address] Lymphocytes/100 WBC (Bld) 12.8 % Low 19-41 [facility] Comment on above: Performed By: #### L 100.0100, L500.4050 #### [facility] [address] [place], [address] MCH (RBC) [Entitic mass] 32.6 pg High 27.0-32.0 [facility] Comment on above: Performed By: #### L 100.0100, L500.4050 #### [facility] [address] [place], [address] MCHC (RBC) [Mass/Vol] 36.4 g/dL High 32-36 [facility] Comment on above: Performed By: #### L 100.0100, L500.4050 #### [facility] [address] [place], [address] MCV (RBC) [Entitic vol] 89.6 fL Normal 81-99 [facility] Comment on above: Performed By: #### L 100.0100, L500.4050 #### [facility] [address] [place], [address] Monocytes/100 WBC (Bld) 4.7 % Normal 0-10 [facility] Comment on above: Performed By: #### L 100.0100, L500.4050 #### [facility] [address] [place], [address] Neutrophils/100 WBC (Bld) 81.6 % High 47-70 [facility] Comment on above: Performed By: #### L 100.0100, L500.4050 #### [facility] [address] [place], [address] Nucleated RBC (Bld) [#/Vol] 0 10*3/uL Normal 0-5 [facility] Comment on above: Performed By: #### L 100.0100, L500.4050 #### [facility] [address] [place], [address] Platelet mean volume (Bld) [Entitic vol] 10.1 fL Normal 6.2-12.0 [facility] Comment on above: Performed By: #### L 100.0100, L500.4050 #### [facility] [address] [place], [address] Platelets (Bld) [#/Vol] 180 10*3/uL Normal 150-450 [facility] Comment on above: Performed By: #### L 100.0100, L500.4050 #### [facility] [address] [place], [address] RBC (Bld) [#/Vol] 3.56 10*6/uL Low 4.2-5.4 [facility] Comment on above: Performed By: #### L 100.0100, L500.4050 #### [facility] [address] [place], [address] RDW SD 45.9 fl High 35.1-43.9 [facility] Comment on above: Performed By: #### L 100.0100, L500.4050 #### [facility] [address] [place], [address] WBC (Bld) [#/Vol] 8.5 10*3/uL Normal 4.4-11.0 [facility] Comment on above: Performed By: #### L 100.0100, L500.4050 #### [facility] [address] [place], [address] Comprehensive Metabolic Prof [facility] 07-09-2025 Albumin [Mass/Vol] 3.9 g/dL Normal 3.5-5.0 [facility] Comment on above: Performed By: #### L 100.0100, L500.4050 #### [facility] [address] [place], [address] Albumin/Globulin [Mass ratio] 1.4 {ratio} Normal 0.9-2.4 [facility] Comment on above: Performed By: #### L 100.0100, L500.4050 #### [facility] [address] [place], [address] ALK PHOS 65 U/L Normal 35-104 [facility] Comment on above: Performed By: #### L 100.0100, L500.4050 #### [facility] [address] [place], [address] ALT [Catalytic activity/Vol] 20 U/L Normal <=34 [facility] Comment on above: Performed By: #### L 100.0100, L500.4050 #### [facility] [address] [place], [address] AST [Catalytic activity/Vol] 23 U/L Normal <=31 [facility] Comment on above: Performed By: #### L 100.0100, L500.4050 #### [facility] [address] [place], [address] Bilirubin [Mass/Vol] 0.35 mg/dL Normal 0.00-1.30 [facility] Comment on above: Performed By: #### L 100.0100, L500.4050 #### [facility] [address] [place], [address] BUN/CRE 10.5 RATIO Normal 10-20 [facility] Comment on above: Performed By: #### L 100.0100, L500.4050 #### [facility] [address] [place], [address] Calcium [Mass/Vol] 9.1 mg/dL Normal 7.6-11.0 [facility] Comment on above: Performed By: #### L 100.0100, L500.4050 #### [facility] [address] [place], [address] Chloride [Moles/Vol] 105 mmol/L Normal 98-108 [facility] Comment on above: Performed By: #### L 100.0100, L500.4050 #### [facility] [address] [place], [address] CO2 [Moles/Vol] 18.7 mmol/L Low 21.0-32.0 [facility] Comment on above: Performed By: #### L 100.0100, L500.4050 #### [facility] [address] [place], [address] Creatinine [Mass/Vol] 0.60 mg/dL Low 0.70-1.20 [facility] Comment on above: Performed By: #### L 100.0100, L500.4050 #### [facility] [address] [place], [address] GAP 14 Normal 5-15 [facility] Comment on above: Performed By: #### L 100.0100, L500.4050 #### [facility] [address] [place], [address] GFR/1.73 sq M.predicted among non-blacks MDRD (S/P/Bld) [Vol rate/Area] 128 mL/min/{1.73_m2} Normal >60 [facility] Comment on above: Result Comment: mL/m in/1.73m2 CKD-EPI Creatinine Equation (2020) Performed By: #### L 100.0100, L500.4050 #### [facility] [address] [place], [address] Globulin (S) [Mass/Vol] 2.8 g/dL Normal 2.2-4.2 [facility] Comment on above: Performed By: #### L 100.0100, L500.4050 #### [facility] [address] [place], [address] Glucose [Mass/Vol] 91 mg/dL Normal 70-99 [facility] Comment on above: Performed By: #### L 100.0100, L500.4050 #### [facility] [address] [place], [address] Potassium [Moles/Vol] 3.7 mmol/L Normal 3.3-5.1 [facility] Comment on above: Performed By: #### L 100.0100, L500.4050 #### [facility] [address] [place], [address] Sodium [Moles/Vol] 137 mmol/L Normal 133-145 [facility] Comment on above: Performed By: #### L 100.0100, L500.4050 #### [facility] [address] [place], [address] T PROT 6.7 g/dL Normal 5.9-8.4 [facility] Comment on above: Performed By: #### L 100.0100, L500.4050 #### [facility] [address] [place], [address] Urea nitrogen [Mass/Vol] 6 mg/dL Normal 4-19 [facility] Comment on above: Performed By: #### L 100.0100, L500.4050 #### [facility] [address] [place], [address] [employer] Office Visit Reporton 07-09-2025 [employer]ed [employer] Office Visit Report [facility]'[address], [address] [place] [address] OFFICE VISIT Date of Service: 07/09/25 MR#: [id number] Acct: [id number] Name: LUZ OLIVEIRA Rep #: [id number] : 2000 Provider: Dr. 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 Is patient in pain?: No Allergies escitalopram (From Lexapro) Adverse Reaction (Severe, Verified 07/09/25 09:30) SUICIDAL citalopram hydrobromide (From Celexa) Adverse Reaction (Verified 07/09/25 09:30) Other Medications ???Medication ???Instructions ???Recorded ???Confirmed ???Type unoecezu-rfl-Lg-FA 1 mg 1 tab PO DAILY 08/09/22 07/09/25 H istory tablet cephalexin 500 mg tablet 500 mg PO BID 7 days #14 tabs 06/1207/09/25 Rx metoclopramide HCl 10 mg tablet 10 mg PO TID nausea #90 tabs 07/0907/09/25 Rx (Reglan) Last Menstrual Period: 02/02/25 Zika: Zika virus screening: Negative : No Have you fallen in the past year?: No PFSH PFSH Medical History (Updated 07/09/25 @ 10:[address] Geraldine Bradford MD) Fatty liver Renal atrophy, left Elevated liver enzymes Heart palpitations History of gestational hypertension Obesity affecting 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 jsncpg-dgaxxbo-vdrrs reflux Surgical History [place] teeth removed Family History Grandmother Breast cancer Brain cancer Grandfather CVA (cerebral vascular accident) Mother Diabetes Heart failure MRSA carrier History of recurrent miscarriages Father Hypertension Social History adopted: No household members: spouse and children housing: house number of children: 1 current occupation: [employer] current occupational exposures/hazards: No pets and animals: Yes (Not manage literbox) pets and animals: cat(s) history of recent travel: No sexually active: Yes Smoking Status: Never smoker second hand exposure: No ( quit vaping 2 months ago) alcohol intake: never substance use type: does not use well-balanced diet: rarely or never caffeine: Yes Type: carbonated beverages Number of servings: 1 eating out: 1-3 times/week during the past year weight has: increased > 10 lbs what type of physical activity do you participate in: walking frequency: 3-4 times per week duration: 15-30 minutes/day kalpana/amish: Sikhism seatbelt use: always do you feel safe at home: Yes 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 Date Name GA/Weeks Outcome Route Bth Weight Gen Labor Lgth Anesthesia Del Locatn Provider FOB 10/11/18 Chemical 4 spontaneous 03/30/23 Amanda 39 live - full term vacuum 6lbs 1oz Female epidural [facility] Delivery Date: 03/30/23 Last Updated by: Yasmin Newman RN Hyperemesis, Subchorionic hemorrhage, GHTN, SGA/IUGR HPI DISCUSS CONCERNS * OK PER SM Details: LUZ OLIVEIRA is a 24 year old who presents for routine OB visit. OB Visit KIMO Calculator Estimated Delivery Date Method Current WG Current Estimate 11/09/25 LMP (Certain) 22w 3d Other Estimates 11/10/25 Ultrasound #1 22w 2d Expected Delivery Route/Plan Labor Preferences- CB/BF classes: [] labor support person: [] labor intervention preferences: [] pain management options preferred: [] cut cord/dad catch: [] : [] PP control planned: [] discussed possible routes of delivery and associated risks: [] special requests: [] Specific Issue/Plans Covid status: [] Flu vaccine: [] Tdap vaccine: [] Rhogam: [] LARC form signed: [] Problem list reviewed and updated with the most current plan of care details and appropriate orders placed. Relevant counseling for the gestational age provided. Continue routine care and follow up unless otherwise noted in visit notes/problem list details Initial Weight: Not Recorded Date -???-???-???-???-???- ???-???-???-???-???-? ??-???- EGA Weight BP Urine Prot -???-???-???-???-???- ???-???-???-???-???-? ??-???- Glucose FHR FuHt Pres Dilation -???-???-???-???-???- ???-???-???-???-???-? ??-???- Effaced St Visit Note (more content not included)... Normal [facility] Protein+Creatinine Ratio,Uri neon 07-09-2025 PROT:CRE RATIO 283 mg/g CRE High 0-200 [facility] Comment on above: Performed By: #### L 501.0900 #### [facility] [address] [place], [address] Protein (U) [Mass/Vol] 73.9 mg/dL High 0.0-12.0 [facility] Comment on above: Performed By: #### L 501.0900 #### [facility] [address] [place], [address] UR CREAT 261.00 mg/dL High 28.00-217.00 [facility] Comment on above: Performed By: #### L 501.0900 #### [facility] [address] [place], [address] Wound Cultureon 07-06-2025 WC Lesion of abdomen Possible skin contamination, further Identification and sensitivity will be performed only by physician's request. Coag Negative Staph Amount Growth 2+ Normal [facility] Comment on above: Performed By: #### L 100.0100 #### [facility] [address] [place], [address] Gram Stainon 07-04-2025 GS Lesion of abdomen Gram Stain 1+ White Blood Cells No organisms seen Normal [facility] Comment on above: Performed By: #### L 100.0100 #### [facility] [address] [place], [address] Commissioned [employer] Office Visit Reporton 07-03-2025 Commissioned [employer] Office Visit Report [facility] [address], [address] [place] [address] OFFICE VISIT Date of Service: 07/03/25 MR#: [id number] Acct: [id number] Name: LZU OLIVEIRA Rep #: [id number] : 2000 Provider: JARAD moctezuma Age/Sex: 24/F Location: [facility] Status: Signed Intake Vital Signs 05/07/25 14:40 06/06/25 13:39 07/03/25 15:35 Height 5 ft 1 in 5 ft 1 in 5 ft 1 in Weight: 185 lb 4 oz BMI 34.9 BP 109/74 Intake Visit Reasons: 21wk ob Chief Complaint: 21 Week OB [employer] Required: No Is patient in pain?: No Allergies escitalopram (From Lexapro) Adverse Reaction (Severe, Verified 07/03/25 15:38) SUICIDAL citalopram hydrobromide (From Celexa) Adverse Reaction (Verified 07/03/25 15:38) Other Medications ???Medication ???Instructions ???Recorded ???Confirmed ???Type uxmueapb-qgv-Bj-FA 1 mg 1 tab PO DAILY 08/09/22 07/03/25 H istory tablet cephalexin 500 mg tablet 500 mg PO BID 7 days #14 tabs 06/1207/03/25 Rx promethazine 12.5 mg tablet 12.5 mg PO Q6H PRN nausea and 06/1207/03/25 Rx vomiting #60 tabs Last Menstrual Period: 02/02/25 Zika: Zika virus screening: Negative : No PFSH PFSH Medical History Fatty liver Renal atrophy, left Elevated liver enzymes Heart palpitations History of gestational hypertension Obesity affecting 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 utezcb-wzmyejc-ccxld reflux Surgical History [place] teeth removed Family History Grandmother Breast cancer Brain cancer Grandfather CVA (cerebral vascular accident) Mother Diabetes Heart failure MRSA carrier History of recurrent miscarriages Father Hypertension Social History adopted: No household members: spouse and children housing: house number of children: 1 current occupation: [employer] current occupational exposures/hazards: No pets and animals: Yes (Not manage literbox) pets and animals: cat(s) history of recent travel: No sexually active: Yes Smoking Status: Never smoker second hand exposure: No ( quit vaping 2 months ago) alcohol intake: never substance use type: does not use well-balanced diet: rarely or never caffeine: Yes Type: carbonated beverages Number of servings: 1 eating out: 1-3 times/week during the past year weight has: increased > 10 lbs what type of physical activity do you participate in: walking frequency: 3-4 times per week duration: 15-30 minutes/day kalpana/amish: Sikhism seatbelt use: always do you feel safe at home: Yes 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 Date Name GA/Weeks Outcome Route Bth Weight Infant Gen Labor Lgth Anesthesia Del Locatn Provider FOB 10/11/18 Chemical 4 spontaneous 03/30/23 Amanda 39 live - full term vacuum 6lbs 1oz [facility] Delivery Date: 03/30/23 Last Updated by: Yasmin Newman RN Hyperemesis, Subchorionic hemorrhage, GHTN, SGA/IUGR HPI 21wk ob Details: LUZ OLIVEIRA is a 24 year old who presents for routine OB visit. OB Visit KIMO Calculator Estimated Delivery Date Method Current WG Current Estimate 11/09/25 LMP (Certain) 21w 4d Other Estimates 11/10/25 Ultrasound #1 21w 3d Expected Delivery Route/Plan Labor Preferences- CB/BF classes: [] labor support person: [] labor intervention preferences: [] pain management options preferred: [] cut cord/dad catch: [] : [] PP control planned: [] discussed possible routes of delivery and associated risks: [] special requests: [] Specific Issue/Plans Covid status: [] Flu vaccine: [] Tdap vaccine: [] Rhogam: [] LARC form signed: [] Problem list reviewed and updated with the most current plan of care details and appropriate orders placed. Relevant counseling for the gestational age provided. Continue routine care and follow up unless otherwise noted in visit notes/problem list details Initial Weight: Not Recorded Date -???-???-???-???-???- ???-???-???-???-???-? ??-???- EGA Weight BP Urine Prot -???-???-???-???-???- ???-???-???-???-???-? ??-???- Glucose FHR FuHt Pres Dilation -???-???-???-???-???- ???-???-???-???-???-? ??-???- Effaced St Visit Note 04/09/25 -???-???-???-???-???- ???-???-???-???-???-? ??-???- 9w (more content not included)... 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 IMPRESSION AND RECOMMENDATIONS: Luz is a 24 y.o. at 19w5d with Active Non-Hospital Problems Diagnosis Date Noted ARAIZA (nonalcoholic steatohepatitis) 06/20/2025 - 01/02/25 prior to had marked hepatic steatosis noted on imaging - History of mildly elevated LFTs, last AST and ALT normal on 05/30 (reviewed on Luz' phone). - We reviewed increased risk of , preeclampsia and HELLP syndrome with ARAIZA. - Has repeat LFTs scheduled with OB provider. Recommendations: Nutrition consult (ordered). Daily exercise 30-60 mins. Check hepatitis panel if not yet done. If repeat LFTs are elevated, refer to local hard rock miner for further evaluation. Frequent UTI 06/20/2025 - [...] labor, postterm , large for gestational age , shoulder dystocia, obstructive sleep apnea, hemorrhage, stillbirth, anomalies, delivery and postcesarean complications. [place] of medicine recommend weight gain in : [...] Further FU depends on cervical length findings. Ame (more content not included)... Normal [facility] Commissioned [employer] Office Visit Reporton 06-06-2025 Commissioned [employer] Office Visit Report [facility]'s [address], [address] [place] [address] OFFICE VISIT Date of Service: 06/06/25 MR#: [id number] Acct: [id number] Name: LUZ OLIVEIRA Rep #: [id number] : 2000 Provider: Dr. Rama Trammell DO Age/Sex: 24/F Location: [facility] Status: Signed Intake Vital Signs 04/09/25 10:40 05/30/25 09:28 06/06/25 13:37 06/06/25 13:39 Height 5 ft 1 in 5 ft 1 in 5 ft 1 in 5 ft 1 in Weight: 183 lb 5 oz BMI 34.6 BP 112/68 Intake Visit Reasons: 17 wk ob [employer] Required: No Is patient in pain?: No Allergies escitalopram (From Lexapro) Adverse Reaction (Severe, Verified 06/06/25 13:36) SUICIDAL citalopram hydrobromide (From Celexa) Adverse Reaction (Verified 06/06/25 13:36) Other Medications ???Medication ???Instructions ???Recorded ???Confirmed ???Type oqzoemqr-tfy-Le-FA 1 mg 1 tab PO DAILY 08/09/22 06/06/25 H istory tablet metoclopramide HCl 5 mg tablet 5 mg PO QACHS #60 tabs 04/19/25 Rx (Reglan) Last Menstrual Period: 02/02/25 Zika: Zika virus screening: Negative : No PFSH PFSH Medical History Fatty liver Renal atrophy, left Elevated liver enzymes Heart palpitations History of gestational hypertension Obesity affecting 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 rnnmlc-phhuaae-mzwjq reflux Surgical History [place] teeth removed Family History Grandmother Breast cancer Brain cancer Grandfather CVA (cerebral vascular accident) Mother Diabetes Heart failure MRSA carrier History of recurrent miscarriages Father Hypertension Social History adopted: No household members: spouse and children housing: house number of children: 1 current occupation: [employer] current occupational exposures/hazards: No pets and animals: Yes (Not manage literbox) pets and animals: cat(s) history of recent travel: No sexually active: Yes Smoking Status: Never smoker second hand exposure: No ( quit vaping 2 months ago) alcohol intake: never substance use type: does not use well-balanced diet: rarely or never caffeine: Yes Type: carbonated beverages Number of servings: 1 eating out: 1-3 times/week during the past year weight has: increased > 10 lbs what type of physical activity do you participate in: walking frequency: 3-4 times per week duration: 15-30 minutes/day kalpana/amish: Sikhism seatbelt use: always do you feel safe at home: Yes 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 Date Name GA/Weeks Outcome Route Bth Weight Gen Labor Lgth Anesthesia Del Locatn Provider FOB 10/11/18 Chemical 4 spontaneous 03/30/23 Amanda 39 live - full term vacuum 6lbs 1oz Female epidural [facility] Delivery Date: 03/30/23 Last Updated by: Yasmin Newman RN Hyperemesis, Subchorionic hemorrhage, GHTN, SGA/IUGR HPI 17 wk ob Details: LUZ OLIVEIRA is a 24 year old who presents for routine OB visit. OB Visit KIMO Calculator Estimated Delivery Date Method Current WG Current Estimate 11/09/25 LMP (Certain) 17w 5d Other Estimates 11/10/25 Ultrasound #1 17w 4d Expected Delivery Route/Plan Labor Preferences- CB/BF classes: [] labor support person: [] labor intervention preferences: [] pain management options preferred: [] cut cord/dad catch: [] : [] PP control planned: [] discussed possible routes of delivery and associated risks: [] special requests: [] Specific Issue/Plans Covid status: [] Flu vaccine: [] Tdap vaccine: [] Rhogam: [] LARC form signed: [] Problem list reviewed and updated with the most current plan of care details and appropriate orders placed. Relevant counseling for the gestational age provided. Continue routine care and follow up unless otherwise noted in visit notes/problem list details Initial Weight: Not Recorded Date -???-???-???-???-???- ???-???-???-???-???-? ??-???- EGA Weight BP Urine Prot -???-???-???-???-???- ???-???-???-???-???-? ??-???- Glucose FHR FuHt Pres Dilation -???-???-???-???-???- ???-???-???-???-???-? ??-???- Effaced St Visit Note 04/09/25 -???-???-???-???-???- ???-???-???-???-???-? ??-???- 9w 3d 194 lb 8 oz 106/69 Negative -???-???-???-???-???- ???-???-???-???-???-? ??-???- Negat (more content not included)... Normal [facility] Urine Cultureon 06-02-2025 URC #1,2 Gram positive francheska suggestive of a diphtheroid. Susceptibility not normally performed on this organism Urine Culture Urine Culture Urine Culture Corynebacterium amycolatum [place] Count 11,000-25,000 Corynebacterium minutissimum Corynebacterium minutissimum Normal [facility] Comment on above: Performed By: #### M 100.678, M100.2200, L400.0001 #### [facility] [address] [place], [place], [address] Cardiology Visit Reporton Cardiology Visit Report [facility] [address] [place] [address] OFFICE VISIT Date of Service: 05/30/25 MR#: [id number] Acct: [id number] Name: LUZ OLIVEIRA Rep #: [id number] : 2000 Provider: Dr. Keven Alvarez MD Age/Sex: 24/F [place] [facility] [place]: Signed HPI HPI History of Present Illness Details: 24-year-old lady who is currently 16 weeks with a history of palpitations. She has also had some dizziness and she said that this started occurring around 11 weeks. She is not sure whether etiology was she also had occasional spikes in her blood pressure. She had been on no medications was not consuming any increased amounts of caffeinated beverages. She did have 1 episode of syncope but she is not quite sure what happened. She has not had any other major issues. She thinks that it is getting mildly better. Her physical exam today demonstrates clear lung francis regular rate and rhythm and no pedal edema her electrocardiogram demonstrates sinus rhythm with a rate of 91 bpm. Intake Vital Signs 05/07/25 14:40 05/14/25 14:48 05/30/25 09:28 Height 5 ft 1 in 5 ft 1 in 5 ft 1 in Weight: 183 lb BMI 34.5 BP 118/58 L Blood Pressure Location Lt brachial Position Sitting Respiration 16 Pulse 90 Pulse Source Monitor Intake Visit Reasons: PALP ([place]) [employer] Required: No Accompanied by: Self Is patient in pain?: No Allergies escitalopram (From Lexapro) Adverse Reaction (Severe, Verified 05/30/25 09:34) SUICIDAL citalopram hydrobromide (From Celexa) Adverse Reaction (Verified 05/30/25 09:34) Other Medications ???Medication ???Instructions ???Recorded ???Confirmed ???Type skvprskr-ogx-Vx-FA 1 mg 1 tab PO DAILY 08/09/22 05/30/25 H istory tablet metoclopramide HCl 5 mg tablet 5 mg PO QACHS #60 tabs 04/19/25 Rx (Reglan) PFSH Medical History Fatty liver Renal atrophy, left Elevated liver enzymes Heart palpitations History of gestational hypertension Obesity affecting 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 tgogaa-ewigcyl-joprs reflux Surgical History [place] teeth removed Family History Grandmother Breast cancer Brain cancer Grandfather CVA (cerebral vascular accident) Mother Diabetes Heart failure MRSA carrier History of recurrent miscarriages Father Hypertension Social History adopted: No household members: spouse and children housing: house number of children: 1 current occupation: [employer] current occupational exposures/hazards: No pets and animals: Yes (Not manage literbox) pets and animals: cat(s) history of recent travel: No sexually active: Yes Smoking Status: Never smoker second hand exposure: No ( quit vaping 2 months ago) alcohol intake: never substance use type: does not use well-balanced diet: rarely or never caffeine: Yes Type: carbonated beverages Number of servings: 1 eating out: 1-3 times/week during the past year weight has: increased > 10 lbs what type of physical activity do you participate in: walking frequency: 3-4 times per week duration: 15-30 minutes/day kalpana/amish: Sikhism seatbelt use: always do you feel safe at home: Yes 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[employer] Const Const: Negative for fatigue, weakness, headache(s), daytime sleepiness or difficulty sleeping ENT ENT: Positive for dizziness; Negative for headache(s) or Nosebleed/epistaxis Cardio Chest Pain: No Palpitations: Yes feels like its: fast Edema: None Resp Respiratory: Positive for SOB with activity; Negative for SOB at rest, SOB orthopnea SOB lying down or Cough GI GI: Negative nausea, vomiting or heartburn Neuro Neuro: Positive for dizziness; Negative for lightheadedness, near syncope, headache(s) or weakness Endo Endo: Negative for fatigue Cardiology Exam Const Appearance: cooperative, healthy appearing, no acute distress, well developed and well groomed Nutritional Appearance: average body habitus and well nourished Orientation: alert, awake and oriented x3 Head Head: normal to inspection, normocephalic and atraumatic Ears: hearing grossly normal bilaterally and external ears normal Nose: external nose normal, nares normal, nasal mucous membranes and turbinates normal, septum normal and no nasal discharge Face and Sinus: face symmetric Mouth: oral mucosae normal, tongue normal, oropharynx normal and moist mucous membranes Teeth and gingiva: dentition normal Throat: posterior oropharynx normal, tonsils normal and uvula m (more content not included)... Normal [facility] Comprehensive Metabolic Prof ilon 05-30-2025 Albumin [Mass/Vol] 4.0 g/dL Normal 3.5-5.0 [facility] Comment on above: Performed By: #### L 100.0100, L500.4050 #### [facility] [address] [place], [address] Albumin/Globulin [Mass ratio] 1.5 {ratio} Normal 0.9-2.4 [facility] Comment on above: Performed By: #### L 100.0100, L500.4050 #### [facility] [address] [place], [address] ALK PHOS 56 U/L Normal 35-104 [facility] Comment on above: Performed By: #### L 100.0100, L500.4050 #### [facility] [address] [place], [address] ALT [Catalytic activity/Vol] 35 U/L Normal <=34 [facility] Comment on above: Performed By: #### L 100.0100, L500.4050 #### [facility] [address] [place], [address] AST [Catalytic activity/Vol] 29 U/L Normal <=31 [facility] Comment on above: Performed By: #### L 100.0100, L500.4050 #### [facility] [address] [place], [address] Bilirubin [Mass/Vol] 0.36 mg/dL Normal 0.00-1.30 [facility] Comment on above: Performed By: #### L 100.0100, L500.4050 #### [facility] [address] [place], [address] BUN/CRE 10.5 RATIO Normal 10-20 [facility] Comment on above: Performed By: #### L 100.0100, L500.4050 #### [facility] [address] [place], [address] Calcium [Mass/Vol] 9.3 mg/dL Normal 7.6-11.0 [facility] Comment on above: Performed By: #### L 100.0100, L500.4050 #### [facility] [address] [place], [address] Chloride [Moles/Vol] 104 mmol/L Normal 98-108 [facility] Comment on above: Performed By: #### L 100.0100, L500.4050 #### [facility] [address] [place], [address] CO2 [Moles/Vol] 20.0 mmol/L Low 21.0-32.0 [facility] Comment on above: Performed By: #### L 100.0100, L500.4050 #### [facility] [address] [place], [address] Creatinine [Mass/Vol] 0.57 mg/dL Low 0.70-1.20 [facility] Comment on above: Performed By: #### L 100.0100, L500.4050 #### [facility] [address] [place], [address] GAP 14 Normal 5-15 [facility] Comment on above: Performed By: #### L 100.0100, L500.4050 #### [facility] [address] [place], [address] GFR/1.73 sq M.predicted among non-blacks MDRD (S/P/Bld) [Vol rate/Area] 129 mL/min/{1.73_m2} Normal >60 [facility] Comment on above: Result Comment: mL/m in/1.73m2 CKD-EPI Creatinine Equation (2020) Performed By: #### L 100.0100, L500.4050 #### [facility] [address] [place], [address] Globulin (S) [Mass/Vol] 2.6 g/dL Normal 2.2-4.2 [facility] Comment on above: Performed By: #### L 100.0100, L500.4050 #### [facility] [address] [place], [address] Glucose [Mass/Vol] 92 mg/dL Normal 70-99 [facility] Comment on above: Performed By: #### L 100.0100, L500.4050 #### [facility] [address] [place], [address] Potassium [Moles/Vol] 3.8 mmol/L Normal 3.3-5.1 [facility] Comment on above: Performed By: #### L 100.0100, L500.4050 #### [facility] [address] [place], [address] Sodium [Moles/Vol] 138 mmol/L Normal 133-145 [facility] Comment on above: Performed By: #### L 100.0100, L500.4050 #### [facility] [address] [place], [address] T PROT 6.6 g/dL Normal 5.9-8.4 [facility] Comment on above: Performed By: #### L 100.0100, L500.4050 #### [facility] [address] [place], [address] Urea nitrogen [Mass/Vol] 6 mg/dL Normal 4-19 [facility] Comment on above: Performed By: #### L 100.0100, L500.4050 #### [facility] [address] [place], [address] Thyroid Stim Hormone (TSH)on 05-30-2025 TSH 0.631 uIU/mL Normal 0.300-4.200 [facility] Comment on above: Performed By: #### L 501.9520 #### [facility] [address] [place], [address] CBC W/Diff, Automatedon Absolute Lymph 1.81 X10 3/uL Normal 0.83-4.51 [facility] Comment on above: Performed By: #### L 100.0100, L500.4050 #### [facility] [address] [place], [address] Absolute Neut 5.3 X10 3/uL Normal 2.0-7.7 [facility] Comment on above: Performed By: #### L 100.0100, L500.4050 #### [facility] [address] [place], [address] Basophils/100 WBC (Bld) 0.1 % Normal 0-1 [facility] Comment on above: Performed By: #### L 100.0100, L500.4050 #### [facility] [address] [place], [address] Eosinophils/100 WBC (Bld) 0.3 % Normal 0-5 [facility] Comment on above: Performed By: #### L 100.0100, L500.4050 #### [facility] [address] [place], [address] Erythrocyte distribution width (RBC) [Ratio] 12.9 % Normal 11.6-14.6 [facility] Comment on above: Performed By: #### L 100.0100, L500.4050 #### [facility] [address] [place], [address] Hematocrit (Bld) [Volume fraction] 36.8 % Low 37-47 [facility] Comment on above: Performed By: #### L 100.0100, L500.4050 #### [facility] [address] [place], [address] Hemoglobin (Bld) [Mass/Vol] 13.0 g/dL Normal 12.0-15.0 [facility] Comment on above: Performed By: #### L 100.0100, L500.4050 #### [facility] [address] [place], [address] IG% 0.400 Normal 0.0-0.9 [facility] Comment on above: Result Comment: IG% - Immature Granulocytes (promyelocytes, myelocytes and metamyelocytes) > 1% indicates that a LEFT SHIFT is Present. Performed By: #### L 100.0100, L500.4050 #### [facility] [address] [place], [address] Lymphocytes/100 WBC (Bld) 23.5 % Normal 19-41 [facility] Comment on above: Performed By: #### L 100.0100, L500.4050 #### [facility] [address] [place], [address] MCH (RBC) [Entitic mass] 31.0 pg Normal 27.0-32.0 [facility] Comment on above: Performed By: #### L 100.0100, L500.4050 #### [facility] [address] [place], [address] MCHC (RBC) [Mass/Vol] 35.3 g/dL Normal 32-36 [facility] Comment on above: Performed By: #### L 100.0100, L500.4050 #### [facility] [address] [place], [address] MCV (RBC) [Entitic vol] 87.6 fL Normal 81-99 [facility] Comment on above: Performed By: #### L 100.0100, L500.4050 #### [facility] [address] [place], [address] Monocytes/100 WBC (Bld) 6.7 % Normal 0-10 [facility] Comment on above: Performed By: #### L 100.0100, L500.4050 #### [facility] [address] [place], [address] Neutrophils/100 WBC (Bld) 69.0 % Normal 47-70 [facility] Comment on above: Performed By: #### L 100.0100, L500.4050 #### [facility] [address] [place], [address] Nucleated RBC (Bld) [#/Vol] 0 10*3/uL Normal 0-5 [facility] Comment on above: Performed By: #### L 100.0100, L500.4050 #### [facility] [address] [place], [address] Platelet mean volume (Bld) [Entitic vol] 10.3 fL Normal 6.2-12.0 [facility] Comment on above: Performed By: #### L 100.0100, L500.4050 #### [facility] [address] [place], [address] Platelets (Bld) [#/Vol] 198 10*3/uL Normal 150-450 [facility] Comment on above: Performed By: #### L 100.0100, L500.4050 #### [facility] [address] [place], [address] RBC (Bld) [#/Vol] 4.20 10*6/uL Normal 4.2-5.4 [facility] Comment on above: Performed By: #### L 100.0100, L500.4050 #### [facility] [address] [place], [address] RDW SD 39.9 fl Normal 35.1-43.9 [facility] Comment on above: Performed By: #### L 100.0100, L500.4050 #### [facility] [address] [place], [address] WBC (Bld) [#/Vol] 7.7 10*3/uL Normal 4.4-11.0 [facility] Comment on above: Performed By: #### L 100.0100, L500.4050 #### [facility] [address] [place], [address] Comprehensive Metabolic Prof [facility] 05-14-2025 Albumin [Mass/Vol] 4.2 g/dL Normal 3.5-5.0 [facility] Comment on above: Performed By: #### L 100.0100, L500.4050 #### [facility] [address] [place], [address] Albumin/Globulin [Mass ratio] 1.5 {ratio} Normal 0.9-2.4 [facility] Comment on above: Performed By: #### L 100.0100, L500.4050 #### [facility] [address] [place], [address] ALK PHOS 61 U/L Normal 35-104 [facility] Comment on above: Performed By: #### L 100.0100, L500.4050 #### [facility] [address] [place], [address] ALT [Catalytic activity/Vol] 47 U/L High <=34 [facility] Comment on above: Performed By: #### L 100.0100, L500.4050 #### [facility] [address] [place], [address] AST [Catalytic activity/Vol] 36 U/L High <=31 [facility] Comment on above: Performed By: #### L 100.0100, L500.4050 #### [facility] [address] [place], [address] Bilirubin [Mass/Vol] 0.52 mg/dL Normal 0.00-1.30 [facility] Comment on above: Performed By: #### L 100.0100, L500.4050 #### [facility] [address] [place], [address] BUN/CRE 10.7 RATIO Normal 10-20 [facility] Comment on above: Performed By: #### L 100.0100, L500.4050 #### [facility] [address] [place], [address] Calcium [Mass/Vol] 9.5 mg/dL Normal 7.6-11.0 [facility] Comment on above: Performed By: #### L 100.0100, L500.4050 #### [facility] [address] [place], [address] Chloride [Moles/Vol] 102 mmol/L Normal 98-108 [facility] Comment on above: Performed By: #### L 100.0100, L500.4050 #### [facility] [address] [place], [address] CO2 [Moles/Vol] 18.6 mmol/L Low 21.0-32.0 [facility] Comment on above: Performed By: #### L 100.0100, L500.4050 #### [facility] [address] [place], [address] Creatinine [Mass/Vol] 0.66 mg/dL Low 0.70-1.20 [facility] Comment on above: Performed By: #### L 100.0100, L500.4050 #### [facility] [address] [place], [address] GAP 16 High 5-15 [facility] Comment on above: Performed By: #### L 100.0100, L500.4050 #### [facility] [address] [place], [address] GFR/1.73 sq M.predicted among non-blacks MDRD (S/P/Bld) [Vol rate/Area] 125 mL/min/{1.73_m2} Normal >60 [facility] Comment on above: Result Comment: mL/m in/1.73m2 CKD-EPI Creatinine Equation (2020) Performed By: #### L 100.0100, L500.4050 #### [facility] [address] [place], [address] Globulin (S) [Mass/Vol] 2.8 g/dL Normal 2.2-4.2 [facility] Comment on above: Performed By: #### L 100.0100, L500.4050 #### [facility] [address] [place], [address] Glucose [Mass/Vol] 92 mg/dL Normal 70-99 [facility] Comment on above: Performed By: #### L 100.0100, L500.4050 #### [facility] [address] [place], [address] Potassium [Moles/Vol] 3.8 mmol/L Normal 3.3-5.1 [facility] Comment on above: Performed By: #### L 100.0100, L500.4050 #### [facility] [address] [place], [address] Sodium [Moles/Vol] 137 mmol/L Normal 133-145 [facility] Comment on above: Performed By: #### L 100.0100, L500.4050 #### [facility] [address] [place], [address] T PROT 7.0 g/dL Normal 5.9-8.4 [facility] Comment on above: Performed By: #### L 100.0100, L500.4050 #### [facility] [address] [place], [address] Urea nitrogen [Mass/Vol] 7 mg/dL Normal 4-19 [facility] Comment on above: Performed By: #### L 100.0100, L500.4050 #### [facility] [address] [place], [address] [employer] Office Visit Reporton 05-14-2025 [employer] Office Visit Report [facility] [address], [address] [place] [address] OFFICE VISIT Date of Service: 05/14/25 MR#: [id number] Acct: [id number] Name: LUZ OLIVEIRA Rep #: [id number] : 2000 Provider: Dr. Rama Trammell DO Age/Sex: 24/F Location: [facility] [place] Status: Signed Intake Vital Signs 05/07/25 14:40 05/14/25 14:48 05/14/25 14:48 Height 5 ft 1 in 5 ft 1 in 5 ft 1 in Weight: 185 lb 1 oz BMI 34.9 BP 100/52 L Intake Visit Reasons: 14wk OB, elevated liver enzymes cbc/cmp FU [employer] Required: No Is patient in pain?: No Allergies escitalopram (From Lexapro) Adverse Reaction (Severe, Verified 05/14/25 14:48) SUICIDAL citalopram hydrobromide (From Celexa) Adverse Reaction (Verified 05/14/25 14:48) Other Medications ???Medication ???Instructions ???Recorded ???Confirmed ???Type hoqonczi-rll-Fl-FA 1 mg 1 tab PO DAILY 08/09/22 05/14/25 H istory tablet metoclopramide HCl 5 mg tablet 5 mg PO QACHS #60 tabs 07/10/25 08 /04/25 Rx (Reglan) Last Menstrual Period: 02/02/25 Zika: Zika virus screening: Negative : No PFSH PFSH Medical History Congenital usnglw-wkxxyek-vpyqu reflux Surgical History [place] teeth removed Family History Grandmother Breast cancer Brain cancer Grandfather CVA (cerebral vascular accident) Mother Diabetes Heart failure MRSA carrier History of recurrent miscarriages Father Hypertension Social History adopted: No household members: spouse and children housing: house number of children: 1 current occupation: [employer] current occupational exposures/hazards: No pets and animals: Yes (Not manage literbox) pets and animals: cat(s) history of recent travel: No sexually active: Yes Smoking Status: Never smoker second hand exposure: No ( quit vaping 2 months ago) alcohol intake: never substance use type: does not use well-balanced diet: rarely or never caffeine: Yes Type: carbonated beverages Number of servings: 1 eating out: 1-3 times/week during the past year weight has: increased > 10 lbs what type of physical activity do you participate in: walking frequency: 3-4 times per week duration: 15-30 minutes/day kalpana/amish: Sikhism seatbelt use: always do you feel safe at home: Yes 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 Date Name GA/Weeks Outcome Route Bth Weight Gen Labor Lgth Anesthesia Del Locatn Provider FOB 10/11/18 Chemical 4 spontaneous 03/30/23 Amanda 39 live - full term vacuum 6lbs 1oz Female epidural Josef Coe Delivery Date: 03/30/23 Last Updated by: Yasmin Newman RN Hyperemesis, Subchorionic hemorrhage, GHTN, SGA/IUGR HPI 14wk OB, elevated liver enzymes cbc/cmp FU Details: LUZ OLIVEIRA is a 24 year old who presents for routine OB visit. OB Visit KIMO Calculator Estimated Delivery Date Method Current WG Current Estimate 11/09/25 LMP (Certain) 14w 3d Other Estimates 11/10/25 Ultrasound #1 14w 2d Expected Delivery Route/Plan Labor Preferences- CB/BF classes: [] labor support person: [] labor intervention preferences: [] pain management options preferred: [] cut cord/dad catch: [] : [] PP control planned: [] discussed possible routes of delivery and associated risks: [] special requests: [] Specific Issue/Plans Covid status: [] Flu vaccine: [] Tdap vaccine: [] Rhogam: [] LARC form signed: [] Problem list reviewed and updated with the most current plan of care details and appropriate orders placed. Relevant counseling for the gestational age provided. Continue routine care and follow up unless otherwise noted in visit notes/problem list details Initial Weight: Not Recorded Date -???-???-???-???-???- ???-???-???-???-???-? ??-???- EGA Weight BP Urine Prot -???-???-???-???-???- ???-???-???-???-???-? ??-???- Glucose FHR FuHt Pres Dilation -???-???-???-???-???- ???-???-???-???-???-? ??-???- Effaced St Visit Note 04/09/25 -???-???-???-???-???- ???-???-???-???-???-? ??-???- 9w 3d 194 lb 8 oz 106/69 Negative -???-???-???-???-???- ???-???-???-???-???-? ??-???- Negative 175 -???-???-???-???-???- ???-???-???-???-???-? ??-???- SM- CRL 2.5 cm cons with LMP 05/07/25 -???-???-???-???-???- ???-???-???-??? (more content not included)... Normal [facility] CBC W/Diff, Automatedon 07-2 Absolute Lymph 1.24 X10 3/uL Normal 0.83-4.51 [facility] Comment on above: Performed By: #### L 100.0100, L500.4050 #### [facility] [address] [place], [address] Absolute Neut 6.2 X10 3/uL Normal 2.0-7.7 [facility] Comment on above: Performed By: #### L 100.0100, L500.4050 #### [facility] [address] [place], [address] Basophils/100 WBC (Bld) 0.1 % Normal 0-1 [facility] Comment on above: Performed By: #### L 100.0100, L500.4050 #### [facility] [address] [place], [address] Eosinophils/100 WBC (Bld) 0.1 % Normal 0-5 [facility] Comment on above: Performed By: #### L 100.0100, L500.4050 #### [facility] [address] [place], [address] Erythrocyte distribution width (RBC) [Ratio] 12.5 % Normal 11.6-14.6 [facility] Comment on above: Performed By: #### L 100.0100, L500.4050 #### [facility] [address] [place], [address] Hematocrit (Bld) [Volume fraction] 36.6 % Low 37-47 [facility] Comment on above: Performed By: #### L 100.0100, L500.4050 #### [facility] [address] [place], [address] Hemoglobin (Bld) [Mass/Vol] 12.8 g/dL Normal 12.0-15.0 [facility] Comment on above: Performed By: #### L 100.0100, L500.4050 #### [facility] [address] [place], [address] IG% 0.500 Normal 0.0-0.9 [facility] Comment on above: Result Comment: IG% - Immature Granulocytes (promyelocytes, myelocytes and metamyelocytes) > 1% indicates that a LEFT SHIFT is Present. Performed By: #### L 100.0100, L500.4050 #### [facility] [address] [place], [address] Lymphocytes/100 WBC (Bld) 15.8 % Low 19-41 [facility] Comment on above: Performed By: #### L 100.0100, L500.4050 #### [facility] [address] [place], [address] MCH (RBC) [Entitic mass] 30.8 pg Normal 27.0-32.0 [facility] Comment on above: Performed By: #### L 100.0100, L500.4050 #### [facility] [address] [place], [address] MCHC (RBC) [Mass/Vol] 35.0 g/dL Normal 32-36 [facility] Comment on above: Performed By: #### L 100.0100, L500.4050 #### [facility] [address] [place], [address] MCV (RBC) [Entitic vol] 88.2 fL Normal 81-99 [facility] Comment on above: Performed By: #### L 100.0100, L500.4050 #### [facility] [address] [place], [address] Monocytes/100 WBC (Bld) 5.0 % Normal 0-10 [facility] Comment on above: Performed By: #### L 100.0100, L500.4050 #### [facility] [address] [place], [address] Neutrophils/100 WBC (Bld) 78.5 % High 47-70 [facility] Comment on above: Performed By: #### L 100.0100, L500.4050 #### [facility] [address] [place], [address] Nucleated RBC (Bld) [#/Vol] 0 10*3/uL Normal 0-5 [facility] Comment on above: Performed By: #### L 100.0100, L500.4050 #### [facility] [address] [place], [address] Platelet mean volume (Bld) [Entitic vol] 10.7 fL Normal 6.2-12.0 [facility] Comment on above: Performed By: #### L 100.0100, L500.4050 #### [facility] [address] [place], [address] Platelets (Bld) [#/Vol] 180 10*3/uL Normal 150-450 [facility] Comment on above: Performed By: #### L 100.0100, L500.4050 #### [facility] [address] [place], [address] RBC (Bld) [#/Vol] 4.15 10*6/uL Low 4.2-5.4 [facility] Comment on above: Performed By: #### L 100.0100, L500.4050 #### [facility] [address] [place], [address] RDW SD 39.5 fl Normal 35.1-43.9 [facility] Comment on above: Performed By: #### L 100.0100, L500.4050 #### [facility] [address] [place], [address] WBC (Bld) [#/Vol] 7.8 10*3/uL Normal 4.4-11.0 [facility] Comment on above: Performed By: #### L 100.0100, L500.4050 #### [facility] [address] [place], [address] Comprehensive Metabolic Prof [facility] 05-07-2025 Albumin [Mass/Vol] 4.2 g/dL Normal 3.5-5.0 [facility] Comment on above: Performed By: #### L 100.0100, L500.4050 #### [facility] [address] [place], [address] Albumin/Globulin [Mass ratio] 1.6 {ratio} Normal 0.9-2.4 [facility] Comment on above: Performed By: #### L 100.0100, L500.4050 #### [facility] [address] [place], [address] ALK PHOS 62 U/L Normal 35-104 [facility] Comment on above: Performed By: #### L 100.0100, L500.4050 #### [facility] [address] [place], [address] ALT [Catalytic activity/Vol] 58 U/L High <=34 [facility] Comment on above: Performed By: #### L 100.0100, L500.4050 #### [facility] [address] [place], [address] AST [Catalytic activity/Vol] 43 U/L High <=31 [facility] Comment on above: Performed By: #### L 100.0100, L500.4050 #### [facility] [address] [place], [address] Bilirubin [Mass/Vol] 0.56 mg/dL Normal 0.00-1.30 [facility] Comment on above: Performed By: #### L 100.0100, L500.4050 #### [facility] [address] [place], [address] BUN/CRE 10.7 RATIO Normal 10-20 [facility] Comment on above: Performed By: #### L 100.0100, L500.4050 #### [facility] [address] [place], [address] Calcium [Mass/Vol] 9.5 mg/dL Normal 7.6-11.0 [facility] Comment on above: Performed By: #### L 100.0100, L500.4050 #### [facility] [address] [place], [address] Chloride [Moles/Vol] 102 mmol/L Normal 98-108 [facility] Comment on above: Performed By: #### L 100.0100, L500.4050 #### [facility] [address] [place], [address] CO2 [Moles/Vol] 17.7 mmol/L Low 21.0-32.0 [facility] Comment on above: Performed By: #### L 100.0100, L500.4050 #### [facility] [address] [place], [address] Creatinine [Mass/Vol] 0.59 mg/dL Low 0.70-1.20 [facility] Comment on above: Performed By: #### L 100.0100, L500.4050 #### [facility] [address] [place], [address] GAP 16 High 5-15 [facility] Comment on above: Performed By: #### L 100.0100, L500.4050 #### [facility] [address] [place], [address] GFR/1.73 sq M.predicted among non-blacks MDRD (S/P/Bld) [Vol rate/Area] 128 mL/min/{1.73_m2} Normal >60 [facility] Comment on above: Result Comment: mL/m in/1.73m2 CKD-EPI Creatinine Equation (2020) Performed By: #### L 100.0100, L500.4050 #### [facility] [address] [place], [address] Globulin (S) [Mass/Vol] 2.7 g/dL Normal 2.2-4.2 [facility] Comment on above: Performed By: #### L 100.0100, L500.4050 #### [facility] [address] [place], [address] Glucose [Mass/Vol] 110 mg/dL High 70-99 [facility] Comment on above: Performed By: #### L 100.0100, L500.4050 #### [facility] [address] [place], [address] Potassium [Moles/Vol] 3.7 mmol/L Normal 3.3-5.1 [facility] Comment on above: Performed By: #### L 100.0100, L500.4050 #### [facility] [address] [place], [address] Sodium [Moles/Vol] 135 mmol/L Normal 133-145 [facility] Comment on above: Performed By: #### L 100.0100, L500.4050 #### [facility] [address] [place], [address] T PROT 6.9 g/dL Normal 5.9-8.4 [facility] Comment on above: Performed By: #### L 100.0100, L500.4050 #### [facility] [address] [place], [address] Urea nitrogen [Mass/Vol] 6 mg/dL Normal 4-19 [facility] Comment on above: Performed By: #### L 100.0100, L500.4050 #### [facility] [address] [place], [address] HIVon 05-07-2025 HIV Non-Reactive Normal Nonreactive [facility] Comment on above: Result Comment: Non- Reactive Reactive Repeatedly reactive samples must be confirmed according to CDC recommended confirmatory algorithms. The subresults for either HIVAG or AHIV can be used as an aid in the selection of the confirmation algorithm for reactive samples. [facility] specimens with [facility] confirmation. Order the HIV antibody detection and differentiation: lc#[id number] Performed By: #### L 100.0100, L500.4050 #### [facility] [address] [place], [address] Hemoglobin A1con 05-07-2025 HbA1c (Bld) [Mass fraction] 5.1 % Normal <=5.6 [facility] Comment on above: Result Comment: Norm al < 5.7 % Prediabetic 5.7 - 6.4 % Diabetic >or= 6.5 % Please note range changes. Performed By: #### L 100.0100, L500.4050 #### [facility] [address] [place], [address] Hepatitis C Antibodyon 05-07 Hepatitis C Ab Non-Reactive Normal Nonreactive [facility] Comment on above: Result Comment: Reac tive: Presumptive evidence of antibodies to HCV. Follow CDC recommendations for supplemental testing. Non-Reactive: Antibodies to HCV were not detected; does not exclude the possibility of exposure to HCV Reactive Results are presumptive evidence of antibodies to HCV. Follow CDC recommendations for supplemental testing. Order confirmation testing: HCV Quant by PCR testing - HCVPCR #[id number] Non Reactive: < 0.8 Equivocal: >/= 0.8 to < 1.0 Reactive: >/= 1.0 The CDC requires that a reactive/equivocal HCV antibody result be sent out for confirmation. HCV Quant by PCR testing. Performed By: #### L 100.0100, L500.4050 #### [facility] [address] [place], [address] [id number] 05-07-2025 HEP B Surf Ag Non-Reactive Normal Nonreactive [facility] Comment on above: Result Comment: Reac tive: Presumptive evidence of HBV. Repeatedly reactive samples must be confirmed using a neutralization test ([employer] HBsAg Confirmatory Test) Non-Reactive: HBsAg not detected; does not exclude the possibility of exposure to HBV Performed By: #### L 100.0100, L500.4050 #### [facility] [address] [place], [address] L509.4006on 05-07-2025 Rubella IgG REAC Normal Nonreactive [facility] Comment on above: Result Comment: Anti body Result: Interpretation Non-Reactive: Non-Immune Reactive: Immune The following results were obtained with the [employer] Rubella IgG assay. Results from assays of other manufacturers cannot be used interchangeably. Performed By: #### L 100.0100, L500.4050 #### [facility] [address] [place], [address] [employer]ed [employer] Office Visit Reporton 05-07-2025 Commissioned [employer] Office Visit Report [facility] [address], [address] [place] [address] OFFICE VISIT Date of Service: 05/07/25 MR#: [id number] Acct: [id number] Name: LUZ OLIVEIRA Rep #: [id number] : 2000 Provider: JELENA Ordonez ams Age/Sex: 24/F Location: [facility] Status: Signed Intake Vital Signs 01/02/25 18:31 04/09/25 10:40 07/28/25 14:40 Height 5 ft 1 in 5 ft 1 in 5 ft 1 in Weight: 187 lb 4 oz BMI 35.4 BP 117/83 H Intake Visit Reasons: 13wk OB Chief Complaint: 13wk OB [employer] Required: No Is patient in pain?: No Allergies escitalopram (From Lexapro) Adverse Reaction (Severe, Verified 05/07/25 14:39) SUICIDAL citalopram hydrobromide (From Celexa) Adverse Reaction (Verified 05/07/25 14:39) Other Medications ???Medication ???Instructions ???Recorded ???Confirmed ???Type buizbhmd-euf-Qh-FA 1 mg 1 tab PO DAILY 08/09/22 05/07/25 H istory tablet metoclopramide HCl 5 mg tablet 5 mg PO QACHS #60 tabs 04/19/25 Rx (Reglan) Last Menstrual Period: 02/02/25 : No PFSH PFSH Medical History Congenital znpgvy-kuzexkp-zzjah reflux Surgical History [place] teeth removed Family History Grandmother Breast cancer Brain cancer Grandfather CVA (cerebral vascular accident) Mother Diabetes Heart failure MRSA carrier History of recurrent miscarriages Father Hypertension Social History adopted: No household members: spouse and children housing: house number of children: 1 current occupation: [employer] current occupational exposures/hazards: No pets and animals: Yes (Not manage literbox) pets and animals: cat(s) history of recent travel: No sexually active: Yes Smoking Status: Never smoker second hand exposure: No ( quit vaping 2 months ago) alcohol intake: never substance use type: does not use well-balanced diet: rarely or never caffeine: Yes Type: carbonated beverages Number of servings: 1 eating out: 1-3 times/week during the past year weight has: increased > 10 lbs what type of physical activity do you participate in: walking frequency: 3-4 times per week duration: 15-30 minutes/day kalpana/amish: Sikhism seatbelt use: always do you feel safe at home: Yes 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 Date Name GA/Weeks Outcome Route Bth Weight Gen Labor Lgth Anesthesia Del Locatn Provider FOB 10/11/18 Chemical 4 spontaneous 03/30/23 Amanda 39 live - full term vacuum 6lbs 1oz Female epidural Josef Nacho Coe Delivery Date: 03/30/23 Last Updated by: Yasmin Newman RN Hyperemesis, Subchorionic hemorrhage, GHTN, SGA/IUGR HPI 13wk OB Details: LUZ OLIVEIRA is a 24 year old who presents for routine OB visit. OB Visit KIMO Calculator Estimated Delivery Date Method Current WG Current Estimate 11/09/25 LMP (Certain) 13w 3d Other Estimates 11/10/25 Ultrasound #1 13w 2d Expected Delivery Route/Plan Labor Preferences- CB/BF classes: [] labor support person: [] labor intervention preferences: [] pain management options preferred: [] cut cord/dad catch: [] : [] PP control planned: [] discussed possible routes of delivery and associated risks: [] special requests: [] Specific Issue/Plans Covid status: [] Flu vaccine: [] Tdap vaccine: [] Rhogam: [] LARC form signed: [] Problem list reviewed and updated with the most current plan of care details and appropriate orders placed. Relevant counseling for the gestational age provided. Continue routine care and follow up unless otherwise noted in visit notes/problem list details Initial Weight: Not Recorded Date -???-???-???-???-???- ???-???-???-???-???-? ??-???- EGA Weight BP Urine Prot -???-???-???-???-???- ???-???-???-???-???-? ??-???- Glucose FHR FuHt Pres Dilation -???-???-???-???-???- ???-???-???-???-???-? ??-???- Effaced St Visit Note 04/09/25 -???-???-???-???-???- ???-???-???-???-???-? ??-???- 9w 3d 194 lb 8 oz 106/69 Negative -???-???-???-???-???- ???-???-???-???-???-? ??-???- Negative 175 -???-???-???-???-???- ???-???-???-???-???-? ??-???- SM- CRL 2.5 cm cons with LMP 05/07/25 -???-???-???-???-???- ???-???-???-???-???-? ??-???- 13w 3d 187 lb 4 oz 117/83 Trace -???-???-???-???-???- ???-???-???-???-???-? ??-???- Negative 1 (more content not included)... Normal [facility] Syphilis Antibodieson 2024 Syphilis Abs Non-Reactive Normal Nonreactive [facility] Comment on above: Performed By: #### L 100.0100, L500.4050 #### [facility] [address] [place], [id number] Type AND Screenon 05-07-2025 Ab SCREEN GEL Negative Normal [facility] Comment on above: Order Comment: PN Performed By: #### L 100.0100, L500.4050 #### [facility] [address] [place], [address] Chlamydia/GC CHICHO aptimaon CHLAMY,NUC ACID Negative Normal Negative [facility] Comment on above: Performed By: #### L 100.0100 #### [facility] [address] [place], [address] GC BY NUC ACID Negative Normal Negative [facility] Comment on above: Result Comment: Perf ormed at: =G - [facility] [address] [id number] Mentally Impaired Teacher: Rubi Snow MD, Phone: [phone] Performed By: #### L 100.0100 #### [facility] [address] [place], [address] PAP I-G w/rfx hrHPV-Aptimaon 04-12-2025 ADEQ Comment Normal . [facility] Comment on above: Order Comment: REDRA W. PREVIOUS SPECIMEN REJECTED DUE TO CLOTTED SPECIMEN. 01/02/251948 Result Comment: Sati sfactory for evaluation. Endocervical and/or squamous metaplastic cells (endocervical component) are present. Performed By: #### L 100.0100 #### [facility] [address] [place], [address] COMM . Normal . [facility] Comment on above: Order Comment: REDRA W. PREVIOUS SPECIMEN REJECTED DUE TO CLOTTED SPECIMEN. 01/02/251948 Performed By: #### L 100.0100 #### [facility] [address] [place], [address] COMMENT Comment Normal . [facility] Comment on above: Order Comment: REDRA W. PREVIOUS SPECIMEN REJECTED DUE TO CLOTTED SPECIMEN. 01/02/251948 Result Comment: This liquid based ThinPrep(R) pap test was screened with the use of an image guided system. Performed By: #### L 100.0100 #### [facility] [address] [place], [address] DIAG Comment Normal . [facility] Comment on above: Order Comment: REDRA W. PREVIOUS SPECIMEN REJECTED DUE TO CLOTTED SPECIMEN. 01/02/251948 Result Comment: NEGA TIVE FOR INTRAEPITHELIAL LESION OR MALIGNANCY. Performed By: #### L 100.0100 #### [facility] [address] [place], [place], [address] HPV RFLX Comment Normal . [facility] Comment on above: Order Comment: REDRA W. PREVIOUS SPECIMEN REJECTED DUE TO CLOTTED SPECIMEN. 01/02/251948 Result Comment: The HPV DNA reflex criteria were not met with this specimen result therefore, no HPV testing was performed. Performed at: - [facility] [id number] Mentally Impaired Teacher: Rubi Snow MD, Phone: [phone] Performed By: #### L 100.0100 #### [facility] [address] [place], [place], [id number] PAPSMR Comment Normal . [facility] Comment on above: Order Comment: REDRA W. PREVIOUS SPECIMEN REJECTED DUE TO CLOTTED SPECIMEN. 01/02/251948 Result Comment: The Pap smear is a screening test designed to aid in the detection of premalignant and malignant conditions of the uterine cervix. It is not a diagnostic procedure and should not be used as the sole means of detecting cervical cancer. Both false-positive and false-negative reports do occur. Performed By: #### L 100.0100 #### [facility] [address] [place], [place], [id number] PERFORM Comment Normal . [facility] Comment on above: Order Comment: REDRA W. PREVIOUS SPECIMEN REJECTED DUE TO CLOTTED SPECIMEN. 01/02/251948 Result Comment: Delores Lombardo, Prescription Benefit Specialist (ASCP) Performed By: #### L 100.0100 #### [facility] [address] [place], [place], [id number] Urine Cultureon 04-11-2025 [facility] Mixed Gram Positive Organisms [place] Count 80,000-100,000 MIXC Mixed contaminants. Submit a new specimen if indicated. Normal [facility] Comment on above: Performed By: #### L 100.0100 #### [facility] [place], [address] Commissioned [employer] Office Visit Reporton 04-09-2025 Commissioned [employer] Officer Office Visit Report [facility] [facility] [address], [address] [place] [address] OFFICE VISIT Date of Service: 04/09/25 MR#: [id number] Acct: [id number] Name: LUZ OLIVEIRA Rep #: [id number] : 2000 Provider: Dr. Geraldine storey MD Age/Sex: 24/F Location: [facility] Status: Signed Intake Vital Signs 01/02/25 18:31 03/13/25 11:49 04/09/25 10:39 04/09/25 10:40 Height 5 ft 1 in 5 ft 1 in 5 ft 1 in 5 ft 1 in Weight: 194 lb 8 oz BMI 36.7 BP 106/69 Intake Visit Reasons: *NEW* NOB LMP 02/02, KIMO 11/09 per [employer] Foreign Language Teacher Required: No Is patient in pain?: Yes (cramping with urination) Allergies escitalopram (From Lexapro) Adverse Reaction (Severe, Verified 04/09/25 10:39) SUICIDAL citalopram hydrobromide (From Celexa) Adverse Reaction (Verified 04/09/25 10:39) Other Medications ???Medication ???Instructions ???Recorded ???Confirmed ???Type oskrmbkq-mqc-Km-FA 1 mg 1 tab PO DAILY 08/09/22 04/09/25 H istory tablet Last Menstrual Period: 02/02/25 Zika: Zika virus screening: Negative : No PFSH PFSH Medical History (Updated 04/09/25 @ 10:50 by Remedios Wong) Congenital uoaohf-zqodeyf-seeza reflux Surgical History [place] teeth removed Family History Grandmother Breast cancer Brain cancer Grandfather CVA (cerebral vascular accident) Mother Diabetes Heart failure MRSA carrier History of recurrent miscarriages Father Hypertension Social History adopted: No household members: spouse and children housing: house number of children: 1 current occupation: [employer] current occupational exposures/hazards: No pets and animals: Yes (Not manage literbox) pets and animals: cat(s) history of recent travel: No sexually active: Yes Smoking Status: Never smoker second hand exposure: No ( quit vaping 2 months ago) alcohol intake: never substance use type: does not use well-balanced diet: rarely or never caffeine: Yes Type: carbonated beverages Number of servings: 1 eating out: 1-3 times/week during the past year weight has: increased > 10 lbs what type of physical activity do you participate in: walking frequency: 3-4 times per week duration: 15-30 minutes/day kalpana/amish: Sikhism seatbelt use: always do you feel safe at home: Yes 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 Date Name GA/Weeks Outcome Route Bth Weight Infant Gen Labor Lgth Anesthesia Del Locatn Provider FOB 10/11/18 Chemical 4 spontaneous 03/30/23 Amanda 39 live - full term vacuum 6lbs 1oz Female epidural [place] [employer] Delivery Date: 03/30/23 Last Updated by: Yasmin Newman RN Hyperemesis, Subchorionic hemorrhage, GHTN, SGA/IUGR HPI *NEW* NOB LMP 02/02, KIMO 11/09 per Details: LUZ OLIVEIRA is a 24 year old who presents for New OB visit. OB Visit KIMO Calculator Estimated Delivery Date Method Current WG Current Estimate 11/09/25 LMP (Certain) 9w 3d Other Estimates 11/10/25 Ultrasound #1 9w 2d Estimated Due Date: 11/09/25 Expected Delivery Route/Plan Labor Preferences- CB/BF classes: [] labor support person: [] labor intervention preferences: [] pain management options preferred: [] cut cord/dad catch: [] : [] PP control planned: [] discussed possible routes of delivery and associated risks: [] special requests: [] Specific Issue/Plans Covid status: [] Flu vaccine: [] Tdap vaccine: [] Rhogam: [] LARC form signed: [] Problem list reviewed and updated with the most current plan of care details and appropriate orders placed. Relevant counseling for the gestational age provided. Continue routine care and follow up unless otherwise noted in visit notes/problem list details Initial Weight: Not Recorded Date -???-???-???-???-???- ???-???-???-???-???-? ??-???- EGA Weight BP Urine Prot -???-???-???-???-???- ???-???-???-???-???-? ??-???- Glucose FHR FuHt Pres Dilation -???-???-???-???-???- ???-???-???-???-???-? ??-???- Effaced St Visit Note 04/09/25 -???-???-???-???-???- ???-???-???-???-???-? ??-???- 9w 3d 194 lb 8 oz 106/69 Negative -???-???-???-???-???- ???-???-???-???-???-? ??-???- Negative 175 -???-???-???-???-???- ???-???-???-???-???-? ??-???- SM- CRL 2.5 cm cons with LMP Menstrual History Last Menstrual Period: 02/02/25 Reported LMP: definite Normal am (more content not included)... Normal [facility] Protein+Creatinine Ratio,Uri neon 04-09-2025 PROT:CRE RATIO 58 mg/g CRE Normal 0-200 [facility] Comment on above: Performed By: #### L 100.0100 #### [facility] [address] [place], [address] Protein (U) [Mass/Vol] 15.6 mg/dL High 0.0-12.0 [facility] Comment on above: Performed By: #### L 100.0100 #### [facility] [address] [place], [address] Transvaginal w/Preg USon Transvaginal w/Preg US [facility] Services [address] [place], [place] [address] Transvaginal w/Preg US MR#: [id number] Acct: [id number] Name: LUZ OLIVEIRA Rep #: [id number] : 2000 F 24 From: Maxwell Ponce MD PCP: Care Physician,No Primary Status: REG CLI Study: Transvaginal w/Preg US Date of Exam: 03/15/25 Exam# [id number] Ordering Dr: Remedios Garcia ADMINISTRATIVE SERVICES MANAGER ADMINISTRATIVE SERVICES MANAGER -C PROCEDURE: TRANSVAGINAL W/PREG US 03/15/2025 REASON FOR EXAM: BLEEDING EARLY IN TECHNIQUE: Grayscale, color Doppler, and spectral Doppler ultrasound of the pelvis obtained transvaginally. COMPARISON: CT abdomen and pelvis on 01/03/2020 FINDINGS: The uterus measures 8.6 x 4.7 x 6.3 cm for volume of 133.5 mL. There is a single well-formed intrauterine gestational sac, with a mean sac diameter of 0.8 cm, and containing a yolk sac measuring 0.3 cm. No embryo is identified at this time. There is an avascular hypoechoic region peripheral to the gestational sac measuring 0.9 x 0.4 x 0.8 cm. The right ovary measures 2.3 x 1.0 x 1.4 cm for volume of 1.6 mL. The left ovary measures 2.6 x 2.3 x 2.2 cm for volume of 6.6 mL. No suspicious ovarian lesion. Normal waveforms. DIMENSIONS: Parameter Measurement / EGA Gestational Sac: 0.8 cm/5 weeks 4 days +/-10 days Yolk Sac: 0.3 cm ESTIMATED GESTATIONAL AGE: By Ultrasound: 5 weeks 4 days By LMP: 5 weeks 6 days ESTIMATED DATE OF DELIVERY: By Ultrasound: 11/11/2025 By LMP: 11/09/2025 US/Transvaginal w/Preg US IMPRESSION: 1. Definite intrauterine , without embryo identified at this time. Estimated gestational age of 5 weeks 4 days based on mean sac diameter, which is concordant with estimated gestational age of 5 weeks 6 days by LMP. Recommend continued clinical follow-up. 2. Small perigestational hemorrhage. Reading Location: [id number] CC: JARAD Garcia; No Primary Care Physician Youth Coordinator: Signed Normal [facility] hCG Titer Quant., Serumon HCG QUANT. 7025 mIU/mL High <9 non-preg [facility] Comment on above: Result Comment: Gest ational Age 0.2-1 Week: 5-50 mIU/mL 1-2 Weeks: 50-500 mIU/mL 2-3 Weeks: 100-5000 mIU/mL 3-4 Weeks: 500-10,000 mIU/mL 4-5 Weeks:1000-50,000 mIU/mL 5-6 Weeks: 10,000-100,000 mIU/mL 6-8 Weeks: 15,000-200,000 mIU/mL 2-3 Months:10,000-100,000 mIU/mL Performed By: #### L 100.0100 #### [facility] [address], [address] Office Visit Reporton 2024 Office Visit Report [facility] [address] [place] [address] OFFICE VISIT Date of Service: 03/13/25 MR#: [id number] Acct: [id number] Patient: LUZ OLIVEIRA Rep #: [id number] : 2000 Provider: JARAD moctezuma Age/Sex: 24/F Location: [facility] Status: Signed Intake Vital Signs 01/02/25 18:31 03/13/25 11:49 Height 5 ft 1 in 5 ft 1 in Weight: 200 lb 6 oz BMI 37.8 BP 118/72 Intake Visit Reasons: Pre New OB, Confirm preg, Vitals [employer] Foreign Language Teacher Required: No Is patient in pain?: No Allergies escitalopram (From Lexapro) Adverse Reaction (Severe, Verified 03/13/25 11:12) SUICIDAL citalopram hydrobromide (From Celexa) Adverse Reaction (Verified 03/13/25 11:12) Other Medications ???Medication ???Instructions ???Recorded ???Confirmed ???Type idtacxnx-myc-Hv-FA 1 mg 1 tab PO DAILY 08/09/22 03/13/25 H istory tablet Is last menstrual period known: Yes Post menopausal: No Patient : Yes Have you fallen in the past year?: No Nurse's Note: Pt here for secondary amenorrhea. Office UPT: positive. Vitals WNL. PNOB questions completed. Problem list, allergies, and medications updated. First trimester ACOG education completed. Pt with C/O spotting since last night. [facility] notified in office. HcG and TV US ordered. Results POC Urine Office , Urine Positive Last Edit by Yasmin Newman RN on 03/13/25 11:50 Assessment and Plan Assessment and Plan (1) History of hyperemesis gravidarum: Status: Acute Comment: Required infusions (2) History of gestational hypertension: Status: Acute Comment: at end of (3) History of prior with IUGR : Status: Acute (4) History of miscarriage, currently : Status: Acute Comment: x1, chemical in 2019 (5) Obesity affecting : Status: Acute Comment: BMI 37.9; HgBA1C ordered (6) Supervision of high-risk : Status: Acute Comment: , KIMO 11/09, PC: Amanda, : Saravanan (7) : Status: Acute Comment: Discussed genetic/carrier testing - undecided (8) ADHD: Status: Acute (9) Autism: Status: Acute (10) Congenital zkxmym-neogzik-oozrf reflux: Status: Acute Comment: Recurrent UTI's and Kidney stones Orders: Orders hCG Titer Quant., Serum Today Remedios Garcia ADMINISTRATIVE SERVICES MANAGER, ADMINISTRATIVE SERVICES MANAGER-C O20.9 - Hemorrhage in early , unspecified hCG Titer Quant., Serum 03/15/25 JARAD Lee NP O20.9 - Hemorrhage in early , unspecified Transvaginal w/Preg US Today JARAD Lee NP O20.9 - Hemorrhage in early , unspecified POC Urine Today Dr. Geraldine Bradford MD N91.1 - Secondary amenorrhea CBC W/Diff, Automated 04/09/25 JARAD Lee NP O09.90 - Supervision of high risk , unspecified, unspecified trimester Type Screen 04/09/25 JARAD Lee NP O09.90 - Supervision of high risk , unspecified, unspecified trimester Rubella IgG 04/09/25 JARAD Lee NP O09.90 - Supervision of high risk , unspecified, unspecified trimester Hepatitis C Antibody 04/09/25 ANTWAN Lee NPC O09.90 - Supervision of high risk , unspecified, unspecified trimester Hepatitis B Surface Antigen 04/09/25 JARAD Lee NP O09.90 - Supervision of high risk , unspecified, unspecified trimester Culture, Urine 04/09/25 JARAD Lee NP O09.90 - Supervision of high risk , unspecified, unspecified trimester Syphilis Antibodies 04/09/25 JARAD Lee NP O09.90 - Supervision of high risk , unspecified, unspecified trimester Chlamydia/GC CHICHO aptima 04/09/25 ANTWAN Lee NPC O09.90 - Supervision of high risk , unspecified, unspecified trimester HIV 04/09/25 ANTWAN Lee NPC O09.90 - Supervision of high risk , unspecified, unspecified trimester Hemoglobin A1c 04/09/25 ANTWAN Lee NPC O09.90 - Supervision of high risk , unspecified, unspecified trimester, O99.210 - Obesity complicating , unspecified trimester PAP I-G w/rfx hrHPV-Aptima 04/09/25 JARAD Lee NP Z12.4 - Encounter for screening for malignant neoplasm of cervix Comprehensive Metabolic Profil 04/09/25 Remedios Garcia NP, ANIYAH-C O09.90 - Supervision of high risk , unspecified, unspecified trimester, Z87.59 - Personal history of other complications of , childbirth and the puerperium Protein+Creatinine Ratio,Urine 04/09/25 Remedios Garcia NP, NP-C O09.90 - Supervision of high risk , unspecified, unspecified trimester, Z87.59 - Personal history of other complications of , childbirth and the puerperium Clinical Quality Measures Falls Risk Screening/Assistive Devices Have you fallen in the past year?: No 03/13/25 1119 (more content not included)... Normal [facility] hCG Titer Quant., Serumon HCG QUANT. 3759 mIU/mL High <9 non-preg [facility] Comment on above: Result Comment: Gest ational Age 0.2-1 Week: 5-50 mIU/mL 1-2 Weeks: 50-500 mIU/mL 2-3 Weeks: 100-5000 mIU/mL 3-4 Weeks: 500-10,000 mIU/mL 4-5 Weeks:1000-50,000 mIU/mL 5-6 Weeks: 10,000-100,000 mIU/mL 6-8 Weeks: 15,000-200,000 mIU/mL 2-3 Months:10,000-100,000 mIU/mL Performed By: #### L 100.0100 #### [facility] [address] [place], [place], [id number] Culture, Blood (WB)on 2024 CUB Blood cultures x2, from two different sites No growth in 5 days. Normal [facility] Comment on above: Performed By: #### M 100.678, M100.2200, L400.0001 #### [facility] [address] [place], [place], [id number] Urine Cultureon 01-04-2025 URC Presumptive E. coli [place] Count 25,000-50,000 Presumptive E. coli: REACTION Ampicillin Islt BRANDI >=32 Ampicillin+Sulbac Islt BRANDI 4 S Cefepime Islt BRANDI <=0.12 S cefTRIAXone Islt BRANDI <=0.25 S Ciprofloxacin Islt BRANDI 0.5 I B-Lactamase Extended Susc Islt NEG Gentamicin Islt BRANDI <=1 S levoFLOXacin Islt BRANDI 1 I Meropenem Islt BRANDI <=0.25 S Nitrofurantoin Islt BRANDI <=16 S Pip+Tazo Islt BRANDI <=4 S TMP SMX Islt BRANDI <=20 S Normal [facility] Comment on above: Performed By: #### M 100.678, M100.2200, L400.0001 #### [facility] [address] [place], [address] Abdomen/Pelvis W IV Cont ONL Yon 01-02-2025 Abdomen/Pelvis W IV Cont ONLY [facility] Imaging Services [address] [place], [place] [address] Abdomen/Pelvis W IV Cont ONLY MR#: [id number] Acct: [id number] Name: LUZ OLIVEIRA Rep #: [id number] : 2000 F 24 From: Yari Reyes nd, MD PCP: Care Physician,No Primary Status: REG ER Study: Abdomen/Pelvis W IV Cont ONLY Date of Exam: Exam# [id number] Ordering Dr: Mendez Gardner DO PROCEDURE: ABDOMEN/PELVIS W IV CONT ONLY 01/02/2025 REASON FOR EXAM: 24-year-old female, nausea, vomiting, fever, bilateral flank pain, history of stones. TECHNIQUE: Abdomen and pelvis CT without and with intravenous contrast. Coronal and Sagittal reconstruction series were provided. PATIENT PREPARATION: Per protocol ORAL CONTRAST TYPE: None. CONTRAST: Isovue-300 VOLUME: 100mL One or more dose reduction techniques were used (e.g., Automated exposure control, adjustment of the mA and/or kV according to patient size, use of iterative reconstruction technique. RADIATION DOSE SUMMARY: CTDlvol: 40 mGy DLP: 1300 mGycm COMPARISON: CT abdomen pelvis 06/29/2022. FINDINGS: Lung bases: The lung bases are clear. Heart is normal in size. Liver: The liver is normal in size with marked hepatic steatosis. The major portal veins are patent. No biliary ductal dilation. Gallbladder: No radiopaque stones within the gallbladder. Spleen: Unremarkable. Pancreas: Unremarkable. Adrenals: Unremarkable. Kidneys: Stable asymmetric atrophy of the left kidney. No hydronephrosis or nephrolithiasis. Bladder: The urinary bladder is mildly distended with diffuse bladder wall thickening. Reproductive Organs: Normal uterine size and contour. Ovaries are unremarkable. Bowel: The bowel loops are normal in caliber. No ascites or pneumoperitoneum. Normal appendix. Lymph nodes: No suspicious lymph node enlargement. Vasculature: The abdominal aorta and IVC are normal. Bones: No aggressive osseous lesions. CT/Abdomen/Pelvis W IV Cont ONLY IMPRESSION: 1. No acute abdominopelvic finding. 2. Diffuse bladder wall thickening, which may be secondary to incomplete distention or developing urinary tract infection. Correlation with urinalysis recommended. 3. Diffuse hepatic steatosis. Reading Location: [facility] CC: Dr. Mendez Gardner, DO; No Primary Care Physician Youth Coordinator: Signed Normal [facility] CBC W/Diff, Automatedon 12-10 Absolute Lymph 0.64 X10 3/uL Low 0.83-4.51 [facility] Comment on above: Order Comment: REDRA W. PREVIOUS SPECIMEN REJECTED DUE TO CLOTTED SPECIMEN. 01/02/251948 Performed By: #### L 100.0100 #### [facility] [address] [place], [address] Absolute Neut 9.4 X10 3/uL High 2.0-7.7 [facility] Comment on above: Order Comment: REDRA W. PREVIOUS SPECIMEN REJECTED DUE TO CLOTTED SPECIMEN. 01/02/251948 Performed By: #### L 100.0100 #### [facility] [address] [place], [address] Basophils/100 WBC (Bld) 0.1 % Normal 0-1 [facility] Comment on above: Order Comment: REDRA W. PREVIOUS SPECIMEN REJECTED DUE TO CLOTTED SPECIMEN. 01/02/251948 Performed By: #### L 100.0100 #### [facility] [address] [place], [address] Eosinophils/100 WBC (Bld) 0.0 % Normal 0-5 [facility] Comment on above: Order Comment: REDRA W. PREVIOUS SPECIMEN REJECTED DUE TO CLOTTED SPECIMEN. 01/02/251948 Performed By: #### L 100.0100 #### [facility] [address] [place], [address] Erythrocyte distribution width (RBC) [Ratio] 12.4 % Normal 11.6-14.6 [facility] Comment on above: Order Comment: REDRA W. PREVIOUS SPECIMEN REJECTED DUE TO CLOTTED SPECIMEN. 01/02/251948 Performed By: #### L 100.0100 #### [facility] [address] [place], [address] Hematocrit (Bld) [Volume fraction] 41.9 % Normal 37-47 [facility] Comment on above: Order Comment: REDRA W. PREVIOUS SPECIMEN REJECTED DUE TO CLOTTED SPECIMEN. 01/02/251948 Performed By: #### L 100.0100 #### [facility] [address] [place], [address] Hemoglobin (Bld) [Mass/Vol] 14.6 g/dL Normal 12.0-15.0 [facility] Comment on above: Order Comment: REDRA W. PREVIOUS SPECIMEN REJECTED DUE TO CLOTTED SPECIMEN. 01/02/251948 Performed By: #### L 100.0100 #### [facility] [address] [place], [address] IG% 0.600 Normal 0.0-0.9 [facility] Comment on above: Order Comment: REDRA W. PREVIOUS SPECIMEN REJECTED DUE TO CLOTTED SPECIMEN. 01/02/251948 Result Comment: IG% - Immature Granulocytes (promyelocytes, myelocytes and metamyelocytes) > 1% indicates that a LEFT SHIFT is Present. Performed By: #### L 100.0100 #### [facility] [address] [place], [address] Lymphocytes/100 WBC (Bld) 5.9 % Low 19-41 [facility] Comment on above: Order Comment: REDRA W. PREVIOUS SPECIMEN REJECTED DUE TO CLOTTED SPECIMEN. 01/02/251948 Performed By: #### L 100.0100 #### [facility] [address] [place], [address] MCH (RBC) [Entitic mass] 30.8 pg Normal 27.0-32.0 [facility] Comment on above: Order Comment: REDRA W. PREVIOUS SPECIMEN REJECTED DUE TO CLOTTED SPECIMEN. 01/02/251948 Performed By: #### L 100.0100 #### [facility] [address] [place], [address] MCHC (RBC) [Mass/Vol] 34.8 g/dL Normal 32-36 [facility] Comment on above: Order Comment: REDRA W. PREVIOUS SPECIMEN REJECTED DUE TO CLOTTED SPECIMEN. 01/02/251948 Performed By: #### L 100.0100 #### [facility] [address] [place], [address] MCV (RBC) [Entitic vol] 88.4 fL Normal 81-99 [facility] Comment on above: Order Comment: REDRA W. PREVIOUS SPECIMEN REJECTED DUE TO CLOTTED SPECIMEN. 01/02/251948 Performed By: #### L 100.0100 #### [facility] [address] [place], [address] Monocytes/100 WBC (Bld) 5.9 % Normal 0-10 [facility] Comment on above: Order Comment: REDRA W. PREVIOUS SPECIMEN REJECTED DUE TO CLOTTED SPECIMEN. 01/02/251948 Performed By: #### L 100.0100 #### [facility] [address] [place], [address] Neutrophils/100 WBC (Bld) 87.5 % High 47-70 [facility] Comment on above: Order Comment: REDRA W. PREVIOUS SPECIMEN REJECTED DUE TO CLOTTED SPECIMEN. 01/02/251948 Performed By: #### L 100.0100 #### [facility] [address] [place], [address] Nucleated RBC (Bld) [#/Vol] 0 10*3/uL Normal 0-5 [facility] Comment on above: Order Comment: REDRA W. PREVIOUS SPECIMEN REJECTED DUE TO CLOTTED SPECIMEN. 01/02/251948 Performed By: #### L 100.0100 #### [facility] [address] [place], [address] Platelet mean volume (Bld) [Entitic vol] 10.2 fL Normal 6.2-12.0 [facility] Comment on above: Order Comment: REDRA W. PREVIOUS SPECIMEN REJECTED DUE TO CLOTTED SPECIMEN. 01/02/251948 Performed By: #### L 100.0100 #### [facility] [address] [place], [address] Platelets (Bld) [#/Vol] 188 10*3/uL Normal 150-450 [facility] Comment on above: Order Comment: REDRA W. PREVIOUS SPECIMEN REJECTED DUE TO CLOTTED SPECIMEN. 01/02/251948 Performed By: #### L 100.0100 #### [facility] [address] [place], [address] RBC (Bld) [#/Vol] 4.74 10*6/uL Normal 4.2-5.4 [facility] Comment on above: Order Comment: REDRA W. PREVIOUS SPECIMEN REJECTED DUE TO CLOTTED SPECIMEN. 01/02/251948 Performed By: #### L 100.0100 #### [facility] [address] [place], [address] RDW SD 40.1 fl Normal 35.1-43.9 [facility] Comment on above: Order Comment: REDRA W. PREVIOUS SPECIMEN REJECTED DUE TO CLOTTED SPECIMEN. 01/02/251948 Performed By: #### L 100.0100 #### [facility] [address] [place], [address] WBC (Bld) [#/Vol] 10.8 10*3/uL Normal 4.4-11.0 [facility] Comment on above: Order Comment: REDRA W. PREVIOUS SPECIMEN REJECTED DUE TO CLOTTED SPECIMEN. 01/02/251948 Performed By: #### L 100.0100 #### [facility] [address] [place], [address] Absolute Neut Normal 2.0-7.7 [facility] Comment on above: Result Comment: This specimen has been REJECTED due to Laboratory criteria: Clotted. ED-ELVIN has been notified of need of recollection. 01/02/251947 Performed By: #### M 100.678, M100.2200, L400.0001 #### [facility] [address] [place], [address] HCT Normal 37-47 [facility] Comment on above: Result Comment: This specimen has been REJECTED due to Laboratory criteria: Clotted. ED-ELVIN has been notified of need of recollection. 01/02/251947 Performed By: #### M 100.678, M100.2200, L400.0001 #### [facility] [address] [place], [address] HGB Normal 12.0-15.0 [facility] Comment on above: Result Comment: This specimen has been REJECTED due to Laboratory criteria: Clotted. ED-ELVIN has been notified of need of recollection. 01/02/251947 Performed By: #### M 100.678, M100.2200, L400.0001 #### [facility] [address] [place], [address] MCH Normal 27.0-32.0 [facility] Comment on above: Result Comment: This specimen has been REJECTED due to Laboratory criteria: Clotted. ED-ELVIN has been notified of need of recollection. 01/02/251947 Performed By: #### M 100.678, M100.2200, L400.0001 #### [facility] [address] [place], [address] MCHC Normal 32-36 [facility] Comment on above: Result Comment: This specimen has been REJECTED due to Laboratory criteria: Clotted. ED-ELVIN has been notified of need of recollection. 01/02/251947 Performed By: #### M 100.678, M100.2200, L400.0001 #### [facility] [address] [place], [address] MCV Normal 81-99 [facility] Comment on above: Result Comment: This specimen has been REJECTED due to Laboratory criteria: Clotted. ED-ELVIN has been notified of need of recollection. 01/02/251947 Performed By: #### M 100.678, M100.2200, [id number] #### [facility] [address] [place], [address] NEUT% Normal 47-70 [facility] Comment on above: Result Comment: This specimen has been REJECTED due to Laboratory criteria: Clotted. ED-ELVIN has been notified of need of recollection. 01/02/251947 Performed By: #### M 100.678, M100.2200, L400.0001 #### [facility] [address] [place], [address] PLT Normal 150-450 [facility] Comment on above: Result Comment: This specimen has been REJECTED due to Laboratory criteria: Clotted. ED-ELVIN has been notified of need of recollection. 01/02/251947 Performed By: #### M 100.678, M100.2200, L400.0001 #### [facility] [address] [place], [address] RBC Normal 4.2-5.4 [facility] Comment on above: Result Comment: This specimen has been REJECTED due to Laboratory criteria: Clotted. ED-ELVIN has been notified of need of recollection. 01/02/251947 Performed By: #### M 100.678, M100.2200, L400.0001 #### [facility] [address] [place], [address] RDW CV Normal 11.6-14.6 [facility] Comment on above: Result Comment: This specimen has been REJECTED due to Laboratory criteria: Clotted. ED-ELVIN has been notified of need of recollection. 01/02/251947 Performed By: #### M 100.678, M100.2200, L400.0001 #### [facility] [address] [place], [address] RDW SD Normal 35.1-43.9 [facility] Comment on above: Result Comment: This specimen has been REJECTED due to Laboratory criteria: Clotted. ED-ELVIN has been notified of need of recollection. 01/02/251947 Performed By: #### M 100.678, M100.2200, L400.0001 #### [facility] [address] [place], [address] WBC Normal 4.4-11.0 [facility] Comment on above: Result Comment: This specimen has been REJECTED due to Laboratory criteria: Clotted. ED-ELVIN has been notified of need of recollection. 01/02/251947 Performed By: #### M 100.678, M100.2200, L400.0001 #### [facility] [address] [place], [address] Comprehensive Metabolic Prof ilon 01-02-2025 Albumin [Mass/Vol] 4.5 g/dL Normal 3.5-5.0 [facility] Comment on above: Performed By: #### M 100.678, M100.2200, L400.0001 #### [facility] [address] [place], [address] Albumin/Globulin [Mass ratio] 1.3 {ratio} Normal 0.9-2.4 [facility] Comment on above: Performed By: #### M 100.678, M100.2200, L400.0001 #### [facility] [address] [place], [address] ALK PHOS 69 U/L Normal 35-104 [facility] Comment on above: Performed By: #### M 100.678, M100.2200, L400.0001 #### [facility] [address] [place], [address] ALT [Catalytic activity/Vol] 50 U/L High <=34 [facility] Comment on above: Performed By: #### M 100.678, M100.2200, L400.0001 #### [facility] [address] [place], [address] AST [Catalytic activity/Vol] 28 U/L Normal <=31 [facility] Comment on above: Performed By: #### M 100.678, M100.2200, L400.0001 #### [facility] [address] [place], [address] Bilirubin [Mass/Vol] 0.96 mg/dL Normal 0.00-1.30 [facility] Comment on above: Performed By: #### M 100.678, M100.2200, L400.0001 #### [facility] [address] [place], [address] BUN/CRE 13.3 RATIO Normal 10-20 [facility] Comment on above: Performed By: #### M 100.678, M100.2200, L400.0001 #### [facility] [address] [place], [address] Calcium [Mass/Vol] 9.6 mg/dL Normal 7.6-11.0 [facility] Comment on above: Performed By: #### M 100.678, M100.2200, L400.0001 #### [facility] [address] [place], [address] Chloride [Moles/Vol] 102 mmol/L Normal 98-108 [facility] Comment on above: Performed By: #### M 100.678, M100.2200, L400.0001 #### [facility] [address] [place], [address] CO2 [Moles/Vol] 23.0 mmol/L Normal 21.0-32.0 [facility] Comment on above: Performed By: #### M 100.678, M100.2200, L400.0001 #### [facility] [address] [place], [address] Creatinine [Mass/Vol] 0.93 mg/dL Normal 0.70-1.20 [facility] Comment on above: Performed By: #### M 100.678, M100.2200, L400.0001 #### [facility] [address] [place], [address] ECRCL 94.15 ml/min Normal 50-250 [facility] Comment on above: Performed By: #### M 100.678, M100.2200, L400.0001 #### [facility] [address] [place], [address] GAP 13 Normal 5-15 [facility] Comment on above: Performed By: #### M 100.678, M100.2200, L400.0001 #### [facility] [address] [place], [address] GFR/1.73 sq M.predicted among non-blacks MDRD (S/P/Bld) [Vol rate/Area] 87 mL/min/{1.73_m2} Normal >60 [facility] Comment on above: Result Comment: mL/m in/1.73m2 CKD-EPI Creatinine Equation (2020) Performed By: #### M 100.678, M100.2200, L400.0001 #### [facility] [address] [place], [address] Globulin (S) [Mass/Vol] 3.4 g/dL Normal 2.2-4.2 [facility] Comment on above: Performed By: #### M 100.678, M100.2200, L400.0001 #### [facility] [address] [place], [address] Glucose [Mass/Vol] 109 mg/dL High 70-99 [facility] Comment on above: Performed By: #### M 100.678, M100.2200, L400.0001 #### [facility] [address] [place], [address] Potassium [Moles/Vol] 3.4 mmol/L Normal 3.3-5.1 [facility] Comment on above: Performed By: #### M 100.678, M100.2200, L400.0001 #### [facility] [address] [place], [address] Sodium [Moles/Vol] 138 mmol/L Normal 133-145 [facility] Comment on above: Performed By: #### M 100.678, M100.2200, L400.0001 #### [facility] [address] [place], [address] T PROT 7.9 g/dL Normal 5.9-8.4 [facility] Comment on above: Performed By: #### M 100.678, M100.2200, L400.0001 #### [facility] [address] [place], [address] Urea nitrogen [Mass/Vol] 12 mg/dL Normal 4-19 [facility] Comment on above: Performed By: #### M 100.678, M100.2200, L400.0001 #### [facility] [address] 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 According to the patient she states that yesterday she was not feeling well she went to bed and then noted that when she woke up she had painful urination. States that as the day went on she developed fever feeling worse prompting her to come here for the valuation management. Patient denies any sick contacts. States that she has not followed with urology at all. Patient states that she was always told drink plenty of water. States that she tried Azo at home. [facility] Medical History Lumbar radiculopathy, acute Acute lumbar myofascial strain Blunt abdominal trauma Chest wall contusion Cervical strain, acute Concussion without loss of consciousness Crushing injury of right great toe, initial encounter Congenital dehhfu-erkmook-xmnco reflux Home Medications ???Medication ???Instructions ???Recorded ???Last Taken ???Type fjsxtgwr-wai-Bd-FA 1 mg 1 tab PO DAILY 08/09/22 Unknown Hi story tablet cephalexin 500 mg capsule 500 mg PO Q6H 5 days #20 caps 12/10 03/04 Unknown Rx ondansetron 4 mg disintegrating 4 mg PO Q6H PRN nausea and 03/25/2 5 Unknown Rx tablet vomiting #20 tabs oxycodone-acetaminoph en 5 mg-325 1 tab PO Q4H PRN pain 2 days #8 Unknown Rx mg tablet (Endocet) tabs Allergy/AdvReac Type Severity Reaction Status Date / Time escitalopram (From Lexapro) AdvReac Severe SUICIDAL Verified 01/02/25 18:30 citalopram hydrobromide AdvReac Other Verified 01/02/25 18:30 (From Celexa) Family History Grandmother Breast cancer Brain cancer Grandfather CVA (cerebral vascular accident) Mother Diabetes Surgical History [place] teeth removed Social History household members: spouse housing: house Smoking Status: Never smoker alcohol intake: never what type of physical activity do you participate in: yoga frequency: 1-2 times per week do you feel safe at home: Yes ROS ROS ED ROS Narrative Constitutional: Complains of fever as noted above and chills denies lightheadedness, dizziness Eyes: Denies change in vision double and blurry vision Cardiovascular: Denies chest pain or palpitations Respiratory: Denies coughing wheezing shortness of breath Abdomen: States that her back pain wraps around to her front of her abdomen as well as complaint of nausea and vomiting denies diarrhea : Complains of painful urination and hematuria Neurological: Denies numbness, weakness, tingling Musculoskeletal: Complains of back pain as noted above Skin: Denies rashes or lesions EXAM Physical Exam Narrative Exam Narrative: general: Patient was lying in bed did appear to be uncomfortable not feeling well overall Head: Atraumatic, normocephalic Eyes: PERRL bilateral, EOMI bilateral, no conjunctival injection noted Neck: Soft, supple, trachea midline Cardiovascular: Patient tachycardic with a regular rhythm no murmurs gallops rubs noted Respiratory: Clear to auscultation bilaterally no rales rhonchi or wheeze noted Abdomen: Patient does have lower abdominal tenderness noted bilaterally on exam no rebound or guarding on exam Musculoskeletal: No tense palpation midline thoracic lumbar spine Extremities: +5/5 strength noted in the bilateral lower extremities, radial pulse +2/4 in the bilateral extremities Neurological: Patient following commands knew that she was at [facility] years 2024 Skin:, No rashes or lesions noted warm, dry, intact Const Vital Signs: 01/02/25 18:31 01/02/25 18:33 01/02/25 18:55 Temperature 100.2 F H 100.2 F H 99.7 F H Temperature Source Oral Oral Oral Pulse Rate 150 H 150 H 78 Respiratory Rate 18 18 16 Respiratory Effort Respiratory Pattern Blood Pressure 140/85 H 140/85 H 109/71 Blood Pressure Mean 103 103 83 Pulse Ox 95 95 98 Oxygen Delivery Method Room Air Room Air 01/02/25 18:55 01/02/25 19:33 01/02/25 20:00 Temperature 101.3 F H 101.3 F H Temperature Source Oral Oral Pulse Rate 134 H 132 H Respiratory Rat (more content not included)... Normal [facility] Lactic Acidon 01-02-2025 Lactate [Moles/Vol] 1.1 mmol/L Normal 0.0-2.0 [facility] Comment on above: Order Comment: Y Performed By: #### M 100.678, M100.2200, L400.0001 #### [facility] [address] [place], [place], [address] Lipaseon 01-02-2025 Lipase [Catalytic activity/Vol] 19 U/L Normal 13-75 [facility] Comment on above: Result Comment: Pletiny paez note: LIPASE revised reference range effective 23. New Lipase methodology. Expected to produce lower values than the previous assay method. NEW Reference Range: 13 - 75 U/L Performed By: #### M 100.678, M100.2200, L400.0001 #### [facility] [address] [place], [address] M100.678on 01-02-2025 M100.678 Pending SARS-CoV-2 (COVID 19) Negative INFLUENZA A Negative INFLUENZA B Negative RSV PCR Negative Normal [facility] Comment on above: Performed By: #### M 100.678, M100.2200, L400.0001 #### [facility] [address] [place], [address] Partial Thromboplast Timeon 01-02-2025 aPTT Coag (Bld) [Time] 33.7 s Normal 24.1-36.2 [facility] Comment on above: Performed By: #### M 100.678, M100.2200, L400.0001 #### [facility] [address] [place], [address] ,Serum,hCG Quali.on 01-02-2025 HCG, SERUM QUAL Negative Normal [facility] Comment on above: Performed By: #### M 100.678, M100.2200, L400.0001 #### [facility] [address] [place], [address] Prothrombin Time w/INRon INR Coag (PPP) [Relative time] 1.1 {INR} Normal [facility] Comment on above: Performed By: #### M 100.678, M100.2200, L400.0001 #### [facility] [address] [place], [address] PT Coag (PPP) [Time] 14.5 s Normal 11.7-14.9 [facility] Comment on above: Performed By: #### M 100.678, M100.2200, L400.0001 #### [facility] [address] [place], [address] Urinalysis, Completeon 01-02 EPI,SQUAMOUS 5-10 SEEN Normal 5-10 [facility] Comment on above: Order Comment: CLEAN CATCH Performed By: #### M 100.678, M100.2200, L400.0001 #### [facility] [address] [place], [address] BACTERIA 3+ /hpf Normal None Seen [facility] Comment on above: Order Comment: CLEAN CATCH Performed By: #### M 100.678, M100.2200, L400.0001 #### [facility] [address] [place], [address] RBC 5-10 SEEN Normal 0-5 [facility] Comment on above: Order Comment: CLEAN CATCH Performed By: #### M 100.678, M100.2200, L400.0001 #### [facility] [address] [place], [address] WBC >100 SEEN Normal 0-5 [facility] Comment on above: Order Comment: CLEAN CATCH Performed By: #### M 100.678, M100.2200, L400.0001 #### [facility] [address] [place], [address] Mucus Ql (Urine sed) 0 SEEN Normal [facility] Comment on above: Order Comment: CLEAN CATCH Performed By: #### M 100.678, M100.2200, L400.0001 #### [facility] [address] [place], [address] XR SPINE CERVICAL AP/LATon 0 02-19-2024 XR SPINE CERVICAL AP/LAT ORIGINAL EXAMINATION: 3 XRAY VIEWS OF THE CERVICAL SPINE 02/18/2024 9:24 am COMPARISON: None. HISTORY: ORDERING SYSTEM PROVIDED HISTORY: Reason for Exam: chronic neck pain; facial numbness; migraines FINDINGS: The cervical spine alignment is remarkable for straightening of cervical lordosis in the upper cervical spine. There is no subluxation. Vertebral bodies are normal in height with no fracture. The odontoid process is intact. The intervertebral disc spaces are normal. Facet joints have a normal appearance. No osseous lesion is detected in the cervical spine. There is no prevertebral soft tissue swelling. IMPRESSION: 1. Straightening of cervical lordosis may be due to muscle spasm. 2. No fracture or subluxation. Interpreted by: Kamar Lilly MD Preliminary Report By: Kamar Lilly MD Electronically signed By Kamar Lilly MD Dictated Date: 02/19/2024 1:38:21 AM Prelim Date: 02/19/2024 1:39:46 AM Sign Date: 02/19/2024 1:39:46 AM Ordering Provider: KIRSTEN Miller [facility] [place] B12on 10-19-2023 Cobalamin (Vitamin B12) [Mass/Vol] 279 pg/mL Normal 211-911 [facility] ([place]) Comment on above: Performed By: #### G FR, LIPID, HFP, A1C, IBC, TSH, CBC, ANEU, FT4, FERR, ADIFF, CMP, FE, VIDH, FT3 #### [address] [address] #### FOL, B12 #### [address] [address] FOLon 10-19-2023 Folate 8.29 ng/mL Normal 5.38-24.00 [facility] ([place]) Comment on above: Performed By: #### G FR, LIPID, HFP, A1C, IBC, TSH, CBC, ANEU, FT4, FERR, ADIFF, CMP, FE, VIDH, FT3 #### [address] [address] #### FOL, B12 #### [address] [address] .Auto Diffon 10-15-2023 Basophil, Absolute 0.0 10 3/mcL Normal 0.0-0.2 [facility]) Comment on above: Performed By: #### G FR, LIPID, HFP, A1C, IBC, TSH, CBC, ANEU, FT4, FERR, ADIFF, CMP, FE, VIDH, FT3 #### [address] [address] #### FOL, B12 #### [address] [address] Basophils/100 WBC (Bld) 0.2 % Normal 0.0-2.5 [facility] ([place]) Comment on above: Performed By: #### G FR, LIPID, HFP, A1C, IBC, TSH, CBC, ANEU, FT4, FERR, ADIFF, CMP, FE, VIDH, FT3 #### [address] [address] #### FOL, B12 #### [address] [address] Eosinophil, Absolute 0.0 10 3/mcL Normal 0.0-0.4 Pending sale to [facility] ([place]) Comment on above: Performed By: #### G FR, LIPID, HFP, A1C, IBC, TSH, CBC, ANEU, FT4, FERR, ADIFF, CMP, FE, VIDH, FT3 #### [address] [address] #### FOL, B12 #### [address] [address] Eosinophils/100 WBC (Bld) 0.6 % Normal 0.0-7.0 [facility] ([place]) Comment on above: Performed By: #### G FR, LIPID, HFP, A1C, IBC, TSH, CBC, ANEU, FT4, FERR, ADIFF, CMP, FE, VIDH, FT3 #### [address] [address] #### FOL, B12 #### [address] [address] Lymphocyte, Absolute 1.5 10 3/mcL Normal 0.8-3.9 Pending sale to [facility] ([place]) Comment on above: Performed By: #### G FR, LIPID, HFP, A1C, IBC, TSH, CBC, ANEU, FT4, FERR, ADIFF, CMP, FE, VIDH, FT3 #### [address] [address] #### FOL, B12 #### [address] [address] Lymphocytes/100 WBC (Bld) 23.2 % Normal 10.0-50.0 [facility] ([place]) Comment on above: Performed By: #### G FR, LIPID, HFP, A1C, IBC, TSH, CBC, ANEU, FT4, FERR, ADIFF, CMP, FE, VIDH, FT3 #### [address] [address] #### FOL, B12 #### [address] [address] Monocyte, Absolute 0.4 10 3/mcL Normal 0.2-1.0 [facility] ([place]) Comment on above: Performed By: #### G FR, LIPID, HFP, A1C, IBC, TSH, CBC, ANEU, FT4, FERR, ADIFF, CMP, FE, VIDH, FT3 #### [address] [address] #### FOL, B12 #### [address] [address] Monocytes/100 WBC (Bld) 5.6 % Normal 1.7-13.0 [facility] ([place]) Comment on above: Performed By: #### G FR, LIPID, HFP, A1C, IBC, TSH, CBC, ANEU, FT4, FERR, ADIFF, CMP, FE, VIDH, FT3 #### [address] [address] #### FOL, B12 #### [address] [address] Neutrophils/100 WBC (Bld) 70.4 % Normal 37.0-80.0 [facility] ([place]) Comment on above: Performed By: #### G FR, LIPID, HFP, A1C, IBC, TSH, CBC, ANEU, FT4, FERR, ADIFF, CMP, FE, VIDH, FT3 #### [address] [address] #### FOL, B12 #### [address] [address] .GFRon 10-15-2023 GFR Non- 73 ml/min/1.73sqm Normal [facility] ([place]) Comment on above: Result Comment: GFR Population mean for , Non- Americans Ages 20-29 = 116 mL/min/1.73 sq.m. Ages 30-39 = 107 mL/min/1.73 sq.m. Ages 40-49 = 99 mL/min/1.73 sq.m. Ages 50-59 = 93 mL/min/1.73 sq.m. Ages 60-69 = 85 mL/min/1.73 sq.m. Ages 70+ = 75 mL/min/1.73 sq.m. Chronic Kidney Disease: Less than 60 mL/min/1.73 square meters End Stage Renal Disease: Less than 15 mL/min/1.73 square meters Performed By: #### G FR, LIPID, HFP, A1C, IBC, TSH, CBC, ANEU, FT4, FERR, ADIFF, CMP, FE, VIDH, FT3 #### [address] [address] #### FOL, B12 #### [address] [address] GFR 89 ml/min/1.73sqm Normal [facility] ([place]) Comment on above: Result Comment: GFR Population mean for , Non- Americans Ages 20-29 = 116 mL/min/1.73 sq.m. Ages 30-39 = 107 mL/min/1.73 sq.m. Ages 40-49 = 99 mL/min/1.73 sq.m. Ages 50-59 = 93 mL/min/1.73 sq.m. Ages 60-69 = 85 mL/min/1.73 sq.m. Ages 70+ = 75 mL/min/1.73 sq.m. Chronic Kidney Disease: Less than 60 mL/min/1.73 square meters End Stage Renal Disease: Less than 15 mL/min/1.73 square meters Performed By: #### G FR, LIPID, HFP, A1C, IBC, TSH, CBC, ANEU, FT4, FERR, ADIFF, CMP, FE, VIDH, FT3 #### [address] [address] #### FOL, B12 #### [address] [address] .NEUABSon 10-15-2023 Neutrophil, Absolute 4.5 10 3/mcL Normal 2.9-6.2 Pending sale to [facility] ([place]) Comment on above: Performed By: #### G FR, LIPID, HFP, A1C, IBC, TSH, CBC, ANEU, FT4, FERR, ADIFF, CMP, FE, VIDH, FT3 #### [address] [address] #### FOL, B12 #### [address] [address] A1Con 10-15-2023 HbA1c (Bld) [Mass fraction] 4.9 % Normal 4.3-6.4 [facility] ([place]) Comment on above: Performed By: #### G FR, LIPID, HFP, A1C, IBC, TSH, CBC, ANEU, FT4, FERR, ADIFF, CMP, FE, VIDH, FT3 #### [address] [address] #### FOL, B12 #### [place] [address] CBCon 10-15-2023 Erythrocyte distribution width (RBC) [Ratio] 14.1 % Normal 11.5-14.5 [facility] ([place]) Comment on above: Performed By: #### G FR, LIPID, HFP, A1C, IBC, TSH, CBC, ANEU, FT4, FERR, ADIFF, CMP, FE, VIDH, FT3 #### [address] [address] #### FOL, B12 #### [address] [address] Hematocrit (Bld) [Volume fraction] 42.4 % Normal 37.0-47.0 [facility] ([place]) Comment on above: Performed By: #### G FR, LIPID, HFP, A1C, IBC, TSH, CBC, ANEU, FT4, FERR, ADIFF, CMP, FE, VIDH, FT3 #### [address] [address] #### FOL, B12 #### [address] [address] Hgb 14.5 G/dL Normal 12.0-16.0 [facility] ([place]) Comment on above: Performed By: #### G FR, LIPID, HFP, A1C, IBC, TSH, CBC, ANEU, FT4, FERR, ADIFF, CMP, FE, VIDH, FT3 #### [address] [address] #### FOL, B12 #### [address] [address] MCH (RBC) [Entitic mass] 30.8 pg Normal 27.0-31.2 [facility] ([place]) Comment on above: Performed By: #### G FR, LIPID, HFP, A1C, IBC, TSH, CBC, ANEU, FT4, FERR, ADIFF, CMP, FE, VIDH, FT3 #### [address] [address] #### FOL, B12 #### [address] [address] MCHC 34.2 G/dL Normal 33.0-37.0 [facility] ([place]) Comment on above: Performed By: #### G FR, LIPID, HFP, A1C, IBC, TSH, CBC, ANEU, FT4, FERR, ADIFF, CMP, FE, VIDH, FT3 #### [address] [address] #### FOL, B12 #### [address] [address] MCV (RBC) [Entitic vol] 90.3 fL Normal 80.0-94.0 [facility] ([place]) Comment on above: Performed By: #### G FR, LIPID, HFP, A1C, IBC, TSH, CBC, ANEU, FT4, FERR, ADIFF, CMP, FE, VIDH, FT3 #### [address] [address] #### FOL, B12 #### [address] [address] Platelet 237 10 3/mcL Normal 130-400 [facility] ([place]) Comment on above: Performed By: #### G FR, LIPID, HFP, A1C, IBC, TSH, CBC, ANEU, FT4, FERR, ADIFF, CMP, FE, VIDH, FT3 #### [address] [address] #### FOL, B12 #### [address] [address] Platelet mean volume (Bld) [Entitic vol] 8.6 fL Normal 7.4-10.4 [facility] ([place]) Comment on above: Performed By: #### G FR, LIPID, HFP, A1C, IBC, TSH, CBC, ANEU, FT4, FERR, ADIFF, CMP, FE, VIDH, FT3 #### [address] [address] #### FOL, B12 #### [address] [address] RBC 4.69 10 6/mcL Normal 4.20-5.40 [facility] ([place]) Comment on above: Performed By: #### G FR, LIPID, HFP, A1C, IBC, TSH, CBC, ANEU, FT4, FERR, ADIFF, CMP, FE, VIDH, FT3 #### [address] [address] #### FOL, B12 #### [place] [address] WBC 6.4 10 3/mcL Normal 4.6-10.8 [facility] ([place]) Comment on above: Performed By: #### G FR, LIPID, HFP, A1C, IBC, TSH, CBC, ANEU, FT4, FERR, ADIFF, CMP, FE, VIDH, FT3 #### [address] [address] #### FOL, B12 #### [address] [address] CMPon 10-15-2023 BUN/Creatinine Ratio 17 ratio Normal 7-27 [facility] ([place]) Comment on above: Performed By: #### G FR, LIPID, HFP, A1C, IBC, TSH, CBC, ANEU, FT4, FERR, ADIFF, CMP, FE, VIDH, FT3 #### [address] [address] #### FOL, B12 #### [address] [address] Calcium [Mass/Vol] 9.5 mg/dL Normal 8.4-10.2 [facility] ([place]) Comment on above: Performed By: #### G FR, LIPID, HFP, A1C, IBC, TSH, CBC, ANEU, FT4, FERR, ADIFF, CMP, FE, VIDH, FT3 #### [address] [address] [address] #### FOL, B12 #### [address] [address] Chloride [Moles/Vol] 101 mmol/L Normal 98-107 [facility] ([place]) Comment on above: Performed By: #### G FR, LIPID, HFP, A1C, IBC, TSH, CBC, ANEU, FT4, FERR, ADIFF, CMP, FE, VIDH, FT3 #### [address] [address] #### FOL, B12 #### [address] [address] CO2 [Moles/Vol] 27 mmol/L Normal 22-29 [facility] ([place]) Comment on above: Performed By: #### G FR, LIPID, HFP, A1C, IBC, TSH, CBC, ANEU, FT4, FERR, ADIFF, CMP, FE, VIDH, FT3 #### [address] [address] #### FOL, B12 #### [address] [address] Creatinine [Mass/Vol] 0.94 mg/dL Normal 0.55-1.02 [facility] ([place]) Comment on above: Performed By: #### G FR, LIPID, HFP, A1C, IBC, TSH, CBC, ANEU, FT4, FERR, ADIFF, CMP, FE, VIDH, FT3 #### [address] [address] #### FOL, B12 #### [address] [address] Electrolyte Balance 13.0 mEq/L Normal 4.0-15.0 [facility] ([place]) Comment on above: Performed By: #### G FR, LIPID, HFP, A1C, IBC, TSH, CBC, ANEU, FT4, FERR, ADIFF, CMP, FE, VIDH, FT3 #### [address] [address] #### FOL, B12 #### [address] [address] Glucose [Mass/Vol] 92 mg/dL Normal 70-105 [facility] ([place]) Comment on above: Performed By: #### G FR, LIPID, HFP, A1C, IBC, TSH, CBC, ANEU, FT4, FERR, ADIFF, CMP, FE, VIDH, FT3 #### [address] [address] #### FOL, B12 #### [address] [address] Potassium [Moles/Vol] 4.2 mmol/L Normal 3.5-5.1 [facility] ([place]) Comment on above: Performed By: #### G FR, LIPID, HFP, A1C, IBC, TSH, CBC, ANEU, FT4, FERR, ADIFF, CMP, FE, VIDH, FT3 #### [address] [address] #### FOL, B12 #### [address] [address] Sodium [Moles/Vol] 141 mmol/L Normal 136-145 [facility] ([place]) Comment on above: Performed By: #### G FR, LIPID, HFP, A1C, IBC, TSH, CBC, ANEU, FT4, FERR, ADIFF, CMP, FE, VIDH, FT3 #### [address] [address] #### FOL, B12 #### [address] [address] Urea nitrogen [Mass/Vol] 16 mg/dL Normal 7-18 [facility] ([place]) Comment on above: Performed By: #### G FR, LIPID, HFP, A1C, IBC, TSH, CBC, ANEU, FT4, FERR, ADIFF, CMP, FE, VIDH, FT3 #### [address] [address] #### FOL, B12 #### [address] [address] FEon 10-15-2023 Iron [Mass/Vol] 141 ug/dL Normal 50-170 [facility] ([place]) Comment on above: Performed By: #### G FR, LIPID, HFP, A1C, IBC, TSH, CBC, ANEU, FT4, FERR, ADIFF, CMP, FE, VIDH, FT3 #### [address] [address] #### FOL, B12 #### [address] [address] Heidi 10-15-2023 Ferritin [Mass/Vol] 60.0 ng/mL Normal 8.0-252.0 [facility] ([place]) Comment on above: Performed By: #### G FR, LIPID, HFP, A1C, IBC, TSH, CBC, ANEU, FT4, FERR, ADIFF, CMP, FE, VIDH, FT3 #### [address] [address] #### FOL, B12 #### [address] [address] FT3on 10-15-2023 Free T3 [Mass/Vol] 3.26 pg/mL Normal 2.30-4.00 [facility] ([place]) Comment on above: Performed By: #### G FR, LIPID, HFP, A1C, IBC, TSH, CBC, ANEU, FT4, FERR, ADIFF, CMP, FE, VIDH, FT3 #### [address] [address] #### FOL, B12 #### [address] [address] FT4on 10-15-2023 Free T4 [Mass/Vol] 1.15 ng/dL Normal 0.76-1.46 [facility] ([place]) Comment on above: Performed By: #### G FR, LIPID, HFP, A1C, IBC, TSH, CBC, ANEU, FT4, FERR, ADIFF, CMP, FE, VIDH, FT3 #### [address] [address] #### FOL, B12 #### [address] [address] HFPon 10-15-2023 Bili Indirect 0.4 mg/dL Normal [facility] ([place]) Comment on above: Performed By: #### G FR, LIPID, HFP, A1C, IBC, TSH, CBC, ANEU, FT4, FERR, ADIFF, CMP, FE, VIDH, FT3 #### [address] [address] #### FOL, B12 #### [address] [address] Albumin Level 4.0 G/dL Normal 3.5-5.0 [facility] ([place]) Comment on above: Performed By: #### G FR, LIPID, HFP, A1C, IBC, TSH, CBC, ANEU, FT4, FERR, ADIFF, CMP, FE, VIDH, FT3 #### [address] [address] #### FOL, B12 #### [address] [address] Albumin/Globulin [Mass ratio] 1.1 {ratio} Normal 1.1-2.5 [facility] ([place]) Comment on above: Performed By: #### G FR, LIPID, HFP, A1C, IBC, TSH, CBC, ANEU, FT4, FERR, ADIFF, CMP, FE, VIDH, FT3 #### [address] [address] #### FOL, B12 #### [address] [address] ALP [Catalytic activity/Vol] 91 U/L Normal 40-135 [facility] ([place]) Comment on above: Performed By: #### G FR, LIPID, HFP, A1C, IBC, TSH, CBC, ANEU, FT4, FERR, ADIFF, CMP, FE, VIDH, FT3 #### [address] [address] #### FOL, B12 #### [address] [address] ALT [Catalytic activity/Vol] 25 U/L Normal 14-59 [facility] ([place]) Comment on above: Performed By: #### G FR, LIPID, HFP, A1C, IBC, TSH, CBC, ANEU, FT4, FERR, ADIFF, CMP, FE, VIDH, FT3 #### [address] [address] #### FOL, B12 #### [address] [address] AST [Catalytic activity/Vol] 15 U/L Normal 10-40 [facility] ([place]) Comment on above: Performed By: #### G FR, LIPID, HFP, A1C, IBC, TSH, CBC, ANEU, FT4, FERR, ADIFF, CMP, FE, VIDH, FT3 #### [address] [address] #### FOL, B12 #### [place] [id number] Bili Direct 0.2 mg/dL Normal 0.0-0.2 [facility] ([place]) Comment on above: Result Comment: Use of this assay is not recommended for patients undergoing treatment with eltrombopag due to the potential for falsely elevated results. Performed By: #### G FR, LIPID, HFP, A1C, IBC, TSH, CBC, ANEU, FT4, FERR, ADIFF, CMP, FE, VIDH, FT3 #### [address] [address] #### FOL, B12 #### [place] [address] Bili Total 0.6 mg/dL Normal 0.2-1.0 [facility] ([place]) Comment on above: Result Comment: Use of this assay is not recommended for patients undergoing treatment with eltrombopag due to the potential for falsely elevated results. Performed By: #### G FR, LIPID, HFP, A1C, IBC, TSH, CBC, ANEU, FT4, FERR, ADIFF, CMP, FE, VIDH, FT3 #### [address] [address] #### FOL, B12 #### [address] [address] Globulin 3.7 G/dL Normal [facility] ([place]) Comment on above: Performed By: #### G FR, LIPID, HFP, A1C, IBC, TSH, CBC, ANEU, FT4, FERR, ADIFF, CMP, FE, VIDH, FT3 #### [address] [address] #### FOL, B12 #### [place] [address] Total Protein 7.7 G/dL Normal 6.4-8.2 [facility] ([place]) Comment on above: Performed By: #### G FR, LIPID, HFP, A1C, IBC, TSH, CBC, ANEU, FT4, FERR, ADIFF, CMP, FE, VIDH, FT3 #### [address] [address] #### FOL, B12 #### [place] [address] IBCon 10-15-2023 TIBC 330 mcg/dL Normal 250-450 [facility] ([place]) Comment on above: Performed By: #### G FR, LIPID, HFP, A1C, IBC, TSH, CBC, ANEU, FT4, FERR, ADIFF, CMP, FE, VIDH, FT3 #### [address] [address] #### FOL, B12 #### [place] [id number] LABORATORYOrdered By: SYSTEM SYSTEM on 10-15-2023 25-hydroxyvitamin D3 [Mass/Vol] 12.2 ng/mL Invalid Interpretation Code AO ADM SS Comment on above: Interpretive Data: I nterpretive Values Based on Total 25(OH) Vitamin D: Deficient <20 ng/mL Insufficient 20 - <30 ng/mL Sufficient 30-100 ng/mL Basophil, Absolute 0.0 103/mcL Normal 0.0 - 0.2 10^3/mcL AO Workflow SS Basophils/100 WBC (Bld) 0.2 % Normal 0.0 - 2.5 % AO Workflow SS Bilirubin.direct [Mass/Vol] 0.2 mg/dL Normal 0.0 - 0.2 mg/dL AO ADM SS Comment on above: Interpretive Data: U se of this assay is not recommended for patients undergoing treatment with eltrombopag due to the potential for falsely elevated results. Bilirubin.direct [Mass/Vol] 0.4 mg/dL Invalid Interpretation Code AO Chemistry S Calcium [Mass/Vol] 9.5 mg/dL Normal 8.4 - 10. 2 mg/dL AO ADM SS Chloride [Moles/Vol] 101 mmol/L Normal 98 - 107 mmol/L AO ADM SS CO2 [Moles/Vol] 27 mmol/L Normal 22 - 29 mmol/L AO AD M SS Creatinine [Mass/Vol] 0.94 mg/dL Normal 0.55 - 1.02 mg/dL AO ADM SS Electrolyte Balance 13.0 mEq/L Normal 4.0 - 15 .0 mEq/L AO ADM SS Eosinophil, Absolute 0.0 103/mcL Normal 0.0 - 0 .4 10^3/mcL AO Workflow SS Eosinophils/100 WBC (Bld) 0.6 % Normal 0.0 - 7.0 % AO Workflow SS Erythrocyte distribution width (RBC) [Ratio] 14.1 % Normal 11.5 - 14.5 % AO Workflow SS Ferritin [Mass/Vol] 60.0 ng/mL Normal 8.0 - 25 2.0 ng/mL AO ADM SS Free T3 [Mass/Vol] 3.26 pg/mL Normal 2.30 - 4. 00 pg/mL AO ADM SS Free T4 [Mass/Vol] 1.15 ng/dL Normal 0.76 - 1. 46 ng/dL AO ADM SS GFR/1.73 sq M.predicted among blacks MDRD (S/P/Bld) [Vol rate/Area] 89 ml/min/1.73sqm Invalid Interpretation Code AO Chemistry S Comment on above: Interpretive Data: GFR Population mean for , Non- Americans Ages 20-29 = 116 mL/min/1.73 sq.m. Ages 30-39 = 107 mL/min/1.73 sq.m. Ages 40-49 = 99 mL/min/1.73 sq.m. Ages 50-59 = 93 mL/min/1.73 sq.m. Ages 60-69 = 85 mL/min/1.73 sq.m. Ages 70+ = 75 mL/min/1.73 sq.m. Chronic Kidney Disease: Less than 60 mL/min/1.73 square meters End Stage Renal Disease: Less than 15 mL/min/1.73 square meters GFR/1.73 sq M.predicted among non-blacks MDRD (S/P/Bld) [Vol rate/Area] 73 ml/min/1.73sqm Invalid Interpretation Code AO Chemistry S Comment on above: Interpretive Data: GFR Population mean for , Non- Americans Ages 20-29 = 116 mL/min/1.73 sq.m. Ages 30-39 = 107 mL/min/1.73 sq.m. Ages 40-49 = 99 mL/min/1.73 sq.m. Ages 50-59 = 93 mL/min/1.73 sq.m. Ages 60-69 = 85 mL/min/1.73 sq.m. Ages 70+ = 75 mL/min/1.73 sq.m. Chronic Kidney Disease: Less than 60 mL/min/1.73 square meters End Stage Renal Disease: Less than 15 mL/min/1.73 square meters Glucose [Mass/Vol] 92 mg/dL Normal 70 - 105 mg/dL AO ADM SS HbA1c (Bld) [Mass fraction] 4.9 % Normal 4.3 - 6.4 % AO ADM SS Hematocrit (Bld) [Volume fraction] 42.4 % Normal 37.0 - 47.0 % AO Workflow SS Hemoglobin (Bld) [Mass/Vol] 14.5 G/dL Normal 12.0 - 16.0 G/dL AO Workflow SS Iron [Mass/Vol] 141 ug/dL Normal 50 - 170 mcg/dL AO A DM SS Iron binding capacity [Mass/Vol] 330 mcg/dL Normal 250 - 450 mcg/dL AO ADM SS Lymphocyte, Absolute 1.5 103/mcL Normal 0.8 - 3 .9 10^3/mcL AO Workflow SS Lymphocytes/100 WBC (Bld) 23.2 % Normal 10.0 - 50.0 % AO Workflow SS MCH (RBC) [Entitic mass] 30.8 pg Normal 27.0 - 31.2 pg AO Workflow SS MCHC 34.2 G/dL Normal 33.0 - 37.0 G/dL AO Workflow SS MCV (RBC) [Entitic vol] 90.3 fL Normal 80.0 - 94.0 fL AO Workflow SS Monocyte, Absolute 0.4 103/mcL Normal 0.2 - 1.0 10^3/mcL AO Workflow SS Monocytes/100 WBC (Bld) 5.6 % Normal 1.7 - 13.0 % AO Workflow SS Neutrophil, Absolute 4.5 103/mcL Normal 2.9 - 6 .2 10^3/mcL AO Workflow SS Neutrophils/100 WBC (Bld) 70.4 % Normal 37.0 - 80.0 % AO Workflow SS Platelet mean volume (Bld) [Entitic vol] 8.6 fL Normal 7.4 - 10.4 fL AO Workflow SS Platelets (Bld) [#/Vol] 237 103/mcL Normal 130 - 400 10^3/mcL AO Workflow SS Potassium [Moles/Vol] 4.2 mmol/L Normal 3.5 - 5.1 mmol/L AO ADM SS RBC (Bld) [#/Vol] 4.69 106/mcL Normal 4.20 - 5.4 0 10^6/mcL AO Workflow SS Sodium [Moles/Vol] 141 mmol/L Normal 136 - 145 mmol/L AO ADM SS TSH Qn 1.13 m[IU]/L Normal 0.36 - 3.74 mcIU/mL AO ADM SS Urea nitrogen [Mass/Vol] 16 mg/dL Normal 7 - 18 mg/dL AO ADM SS Urea nitrogen/Creatinine [Mass ratio] 17 ratio Normal 7 - 27 ratio AO ADM SS WBC (Bld) [#/Vol] 6.4 103/mcL Normal 4.6 - 10.8 10^3/mcL AO Workflow SS LABORATORYOrdered By: Dhara Velez on 10-15-2023 Amphetamines Screen Ql (U) Negative *NA* (10/15/23 9:17 AM) Invalid Interpretation Code Negative AO ADM SS Barbiturates Screen Ql (U) Negative *NA* (10/15/23 9:17 AM) Invalid Interpretation Code Negative AO ADM SS Benzodiazepines Ql (U) Negative *NA* (10/15/23 9:17 AM) Invalid Interpretation Code Negative AO ADM SS Benzoylecgonine Screen Ql (U) Negative *NA* (10/15/23 9:17 AM) Invalid Interpretation Code Negative AO ADM SS Cannabinoids Screen Ql (U) Negative *NA* (10/15/23 9:17 AM) Invalid Interpretation Code Negative AO ADM SS Cholesterol [Mass/Vol] 172 mg/dL Normal 0 - 200 mg/dL AO ADM SS Comment on above: Interpretive Data: C holesterol Reference Interval: Less than 200 Desirable 200-239 Borderline high risk 240 and above High risk Cholesterol in HDL [Mass/Vol] 66 mg/dL High 40 - 60 mg/dL AO ADM SS Cholesterol in LDL [Mass/Vol] 80 mg/dL Normal 0 - 130 mg/dL AO ADM SS Methadone Screen Ql (U) Negative *NA* (10/15/23 9:17 AM) Invalid Interpretation Code Negative AO ADM SS Opiates Screen Ql (U) Negative *NA* (10/15/23 9:17 AM) Invalid Interpretation Code Negative AO ADM SS Phencyclidine Ql (U) Negative *NA* (10/15/23 9:17 AM) Invalid Interpretation Code Negative AO ADM SS Triglyceride [Mass/Vol] 132 mg/dL Normal 0 - 150 mg/dL AO ADM SS Comment on above: Interpretive Data: T riglyceride Reference Interval: Less than 150 Normal 150-199 Borderline high risk 200-499 High risk 500 or higher Very high risk Urine Drugs screened: See Below 7 (10/15/23 9:17 AM) Normal AO Chemistry S Comment on above: Interpretive Data: T his drug screen is a presumptive screening only. No confirmation will be performed unless requested. Drugs screened include: Threshold Amphetamines/Methamphetamines 1,000 ng/mL Barbiturates 200 ng/mL Benzodiazepine metabolites 200 ng/mL Cannabinoids (THC metabolites) 50 ng/mL Cocaine 300 ng/mL Opiates 300 ng/mL Methadone 300 ng/mL Phencyclidine (PCP) 25 ng/mL Testing has been performed FOR MEDICAL PURPOSES ONLY. LIPIDon 10-15-2023 Cholesterol [Mass/Vol] 172 mg/dL Normal 0-200 [facility] ([place]) Comment on above: Result Comment: Chol esterol Reference Interval: Less than 200 Desirable 200-239 Borderline high risk 240 and above High risk Performed By: #### G FR, LIPID, HFP, A1C, IBC, TSH, CBC, ANEU, FT4, FERR, ADIFF, CMP, FE, VIDH, FT3 #### [address] [address] #### FOL, B12 #### [address] [address] Cholesterol in HDL [Mass/Vol] 66 mg/dL High 40-60 [facility] ([place]) Comment on above: Performed By: #### G FR, LIPID, HFP, A1C, IBC, TSH, CBC, ANEU, FT4, FERR, ADIFF, CMP, FE, VIDH, FT3 #### [address] [address] #### FOL, B12 #### [address] [address] Cholesterol in LDL [Mass/Vol] 80 mg/dL Normal 0-130 [facility] ([place]) Comment on above: Performed By: #### G FR, LIPID, HFP, A1C, IBC, TSH, CBC, ANEU, FT4, FERR, ADIFF, CMP, FE, VIDH, FT3 #### [address] [address] #### FOL, B12 #### [address] [address] Triglyceride [Mass/Vol] 132 mg/dL Normal 0-150 [facility] ([place]) Comment on above: Result Comment: Trig lyceride Reference Interval: Less than 150 Normal 150-199 Borderline high risk 200-499 High risk 500 or higher Very high risk Performed By: #### G FR, LIPID, HFP, A1C, IBC, TSH, CBC, ANEU, FT4, FERR, ADIFF, CMP, FE, VIDH, FT3 #### [address] [address] #### FOL, B12 #### [address] [address] Laboratory - Chemistry and C hemistry - challengeOrdered By: SYSTEM SYSTEM on 10-15-2023 Albumin BCP dye [Mass/Vol] 4.0 G/dL Normal 3.5 - 5.0 G/dL AO ADM SS Albumin/Globulin [Mass ratio] 1.1 {ratio} Normal 1.1 - 2.5 ratio AO ADM SS ALP [Catalytic activity/Vol] 91 U/L Normal 40 - 135 U/L AO ADM SS ALT With P-5'-P [Catalytic activity/Vol] 25 U/L Normal 14 - 59 U/L AO ADM SS AST With P-5'-P [Catalytic activity/Vol] 15 U/L Normal 10 - 40 U/L AO ADM SS Bilirubin [Mass/Vol] 0.6 mg/dL Normal 0.2 - 1.0 mg/dL AO ADM SS Comment on above: Interpretive Data: U se of this assay is not recommended for patients undergoing treatment with eltrombopag due to the potential for falsely elevated results. Protein [Mass/Vol] 7.7 G/dL Normal 6.4 - 8.2 G/dL AO ADM SS No Panel InformationOrdered By: SYSTEM SYSTEM on 10-15-2023 Globulin 3.7 G/dL Invalid Interpretation Code AO ADM SS TSHon 10-15-2023 TSH Qn 1.13 m[IU]/L Normal 0.36-3.74 [facility] ([place]) Comment on above: Performed By: #### G FR, LIPID, HFP, A1C, IBC, TSH, CBC, ANEU, FT4, FERR, ADIFF, CMP, FE, VIDH, FT3 #### [address] [address] #### FOL, B12 #### [place] [address] UDRUGon 10-15-2023 Amphetamine (u) Negative Normal Negative [facility] ([place]) Comment on above: Performed By: #### G FR, LIPID, HFP, A1C, IBC, TSH, CBC, ANEU, FT4, FERR, ADIFF, CMP, FE, VIDH, FT3 #### [address] [address] #### FOL, B12 #### [place] [address] Barbiturate (u) Negative Normal Negative [facility] ([place]) Comment on above: Performed By: #### G FR, LIPID, HFP, A1C, IBC, TSH, CBC, ANEU, FT4, FERR, ADIFF, CMP, FE, VIDH, FT3 #### [address] [address] #### FOL, B12 #### [place] [address] Benzodiazepine (u) Negative Normal Negative [facility] ([place]) Comment on above: Performed By: #### G FR, LIPID, HFP, A1C, IBC, TSH, CBC, ANEU, FT4, FERR, ADIFF, CMP, FE, VIDH, FT3 #### [address] [address] #### FOL, B12 #### [place] [address] Cannabinoid (u) Negative Normal Negative [facility] ([place]) Comment on above: Performed By: #### G FR, LIPID, HFP, A1C, IBC, TSH, CBC, ANEU, FT4, FERR, ADIFF, CMP, FE, VIDH, FT3 #### [address] [address] #### FOL, B12 #### [place] [address] Cocaine Ql (U) Negative Normal Negative [facility] ([place]) Comment on above: Performed By: #### G FR, LIPID, HFP, A1C, IBC, TSH, CBC, ANEU, FT4, FERR, ADIFF, CMP, FE, VIDH, FT3 #### [address] [address] #### FOL, B12 #### [place] [address] Methadone Ql (U) Negative Normal Negative [facility] ([place]) Comment on above: Performed By: #### G FR, LIPID, HFP, A1C, IBC, TSH, CBC, ANEU, FT4, FERR, ADIFF, CMP, FE, VIDH, FT3 #### [address] [address] #### FOL, B12 #### [place] [address] Opiate (u) Negative Normal Negative [facility] ([place]) Comment on above: Performed By: #### G FR, LIPID, HFP, A1C, IBC, TSH, CBC, ANEU, FT4, FERR, ADIFF, CMP, FE, VIDH, FT3 #### [address] [address] #### FOL, B12 #### [place] [address] PCP (u) Negative Normal Negative [facility] ([place]) Comment on above: Performed By: #### G FR, LIPID, HFP, A1C, IBC, TSH, CBC, ANEU, FT4, FERR, ADIFF, CMP, FE, VIDH, FT3 #### [address] [address] #### FOL, B12 #### [place] [address] Urine Drugs screened: See Below Normal [facility] ([place]) Comment on above: Result Comment: This drug screen is a presumptive screening only. No confirmation will be performed unless requested. Drugs screened include: Threshold Amphetamines/Methamphetamines 1,000 ng/mL Barbiturates 200 ng/mL Benzodiazepine metabolites 200 ng/mL Cannabinoids (THC metabolites) 50 ng/mL Cocaine 300 ng/mL Opiates 300 ng/mL Methadone 300 ng/mL Phencyclidine (PCP) 25 ng/mL Testing has been performed FOR MEDICAL PURPOSES ONLY. Performed By: #### G FR, LIPID, HFP, A1C, IBC, TSH, CBC, ANEU, FT4, FERR, ADIFF, CMP, FE, VIDH, FT3 #### [address] [address] #### FOL, B12 #### [place] [address] VIDHon 10-15-2023 Vit. D 25-Hydroxy 12.2 ng/mL Normal [facility] ([place]) Comment on above: Result Comment: Inte rpretive Values Based on Total 25(OH) Vitamin D: Deficient <20 ng/mL Insufficient 20 - <30 ng/mL Sufficient 30-100 ng/mL Performed By: #### G FR, LIPID, HFP, A1C, IBC, TSH, CBC, ANEU, FT4, FERR, ADIFF, CMP, FE, VIDH, FT3 #### [address] [address] #### FOL, B12 #### [address] [address] .Auto Diffon 03-31-2023 Basophil, Absolute 0.0 10 3/mcL Normal 0.0-0.2 [facility] ([place]) Comment on above: Performed By: #### G FR, LIPID, HFP, A1C, IBC, TSH, CBC, ANEU, FT4, FERR, ADIFF, CMP, FE, VIDH, FT3 #### [address] [address] #### FOL, B12 #### [address] [address] Basophils/100 WBC (Bld) 0.1 % Normal 0.0-2.5 [facility] ([place]) Comment on above: Performed By: #### G FR, LIPID, HFP, A1C, IBC, TSH, CBC, ANEU, FT4, FERR, ADIFF, CMP, FE, VIDH, FT3 #### [address] [address] #### FOL, B12 #### [address] [address] Eosinophil, Absolute 0.0 10 3/mcL Normal 0.0-0.4 Pending sale to [facility] ([place]) Comment on above: Performed By: #### G FR, LIPID, HFP, A1C, IBC, TSH, CBC, ANEU, FT4, FERR, ADIFF, CMP, FE, VIDH, FT3 #### [address] [address] #### FOL, B12 #### [address] [address] Eosinophils/100 WBC (Bld) 0.0 % Normal 0.0-7.0 [facility] ([place]) Comment on above: Performed By: #### G FR, LIPID, HFP, A1C, IBC, TSH, CBC, ANEU, FT4, FERR, ADIFF, CMP, FE, VIDH, FT3 #### [address] [address] #### FOL, B12 #### [address] [address] Lymphocyte, Absolute 1.2 10 3/mcL Normal 0.8-3.9 Pending sale to [facility] ([place]) Comment on above: Performed By: #### G FR, LIPID, HFP, A1C, IBC, TSH, CBC, ANEU, FT4, FERR, ADIFF, CMP, FE, VIDH, FT3 #### [address] [address] #### FOL, B12 #### [address] [address] Lymphocytes/100 WBC (Bld) 11.4 % Normal 10.0-50.0 [facility] ([place]) Comment on above: Performed By: #### G FR, LIPID, HFP, A1C, IBC, TSH, CBC, ANEU, FT4, FERR, ADIFF, CMP, FE, VIDH, FT3 #### [address] [address] #### FOL, B12 #### [address] [address] Monocyte, Absolute 0.8 10 3/mcL Normal 0.2-1.0 [facility] ([place]) Comment on above: Performed By: #### G FR, LIPID, HFP, A1C, IBC, TSH, CBC, ANEU, FT4, FERR, ADIFF, CMP, FE, VIDH, FT3 #### [address] [address] #### FOL, B12 #### [address] [address] Monocytes/100 WBC (Bld) 7.6 % Normal 1.7-13.0 [facility] ([place]) Comment on above: Performed By: #### G FR, LIPID, HFP, A1C, IBC, TSH, CBC, ANEU, FT4, FERR, ADIFF, CMP, FE, VIDH, FT3 #### [address] [address] #### FOL, B12 #### [address] [address] Neutrophils/100 WBC (Bld) 80.9 % High 37.0-80.0 [facility] ([place]) Comment on above: Performed By: #### G FR, LIPID, HFP, A1C, IBC, TSH, CBC, ANEU, FT4, FERR, ADIFF, CMP, FE, VIDH, FT3 #### [address] [address] #### FOL, B12 #### [address] [address] .NEUABSon 03-31-2023 Neutrophil, Absolute 8.8 10 3/mcL High 2.9-6.2 Pending sale to [facility] ([place]) Comment on above: Performed By: #### G FR, LIPID, HFP, A1C, IBC, TSH, CBC, ANEU, FT4, FERR, ADIFF, CMP, FE, VIDH, FT3 #### [address] [address] #### FOL, B12 #### [address] [address] CBCon 03-31-2023 Erythrocyte distribution width (RBC) [Ratio] 13.9 % Normal 11.5-14.5 [facility] ([place]) Comment on above: Performed By: #### G FR, LIPID, HFP, A1C, IBC, TSH, CBC, ANEU, FT4, FERR, ADIFF, CMP, FE, VIDH, FT3 #### [address] [address] #### FOL, B12 #### [address] [address] Hematocrit (Bld) [Volume fraction] 33.1 % Low 37.0-47.0 [facility] ([place]) Comment on above: Performed By: #### G FR, LIPID, HFP, A1C, IBC, TSH, CBC, ANEU, FT4, FERR, ADIFF, CMP, FE, VIDH, FT3 #### [address] [address] #### FOL, B12 #### [address] [address] Hgb 11.5 G/dL Low 12.0-16.0 [facility] ([place]) Comment on above: Performed By: #### G FR, LIPID, HFP, A1C, IBC, TSH, CBC, ANEU, FT4, FERR, ADIFF, CMP, FE, VIDH, FT3 #### [address] [address] #### FOL, B12 #### [address] [address] MCH (RBC) [Entitic mass] 32.3 pg High 27.0-31.2 [facility] ([place]) Comment on above: Performed By: #### G FR, LIPID, HFP, A1C, IBC, TSH, CBC, ANEU, FT4, FERR, ADIFF, CMP, FE, VIDH, FT3 #### [address] [address] #### FOL, B12 #### [address] [address] MCHC 34.7 G/dL Normal 33.0-37.0 [facility] ([place] Comment on above: Performed By: #### G FR, LIPID, HFP, A1C, IBC, TSH, CBC, ANEU, FT4, FERR, ADIFF, CMP, FE, VIDH, FT3 #### [address] [address] #### FOL, B12 #### [address] [address] MCV (RBC) [Entitic vol] 93.0 fL Normal 80.0-94.0 [facility] ([place]) Comment on above: Performed By: #### G FR, LIPID, HFP, A1C, IBC, TSH, CBC, ANEU, FT4, FERR, ADIFF, CMP, FE, VIDH, FT3 #### [address] [address] #### FOL, B12 #### [address] [address] Platelet 155 10 3/mcL Normal 130-400 [facility] ([place]) Comment on above: Performed By: #### G FR, LIPID, HFP, A1C, IBC, TSH, CBC, ANEU, FT4, FERR, ADIFF, CMP, FE, VIDH, FT3 #### [address] [address] #### FOL, B12 #### [address] [address] Platelet mean volume (Bld) [Entitic vol] 9.3 fL Normal 7.4-10.4 [facility] ([place]) Comment on above: Performed By: #### G FR, LIPID, HFP, A1C, IBC, TSH, CBC, ANEU, FT4, FERR, ADIFF, CMP, FE, VIDH, FT3 #### [address] [address] #### FOL, B12 #### [address] [address] RBC 3.55 10 6/mcL Low 4.20-5.40 [facility] ([place]) Comment on above: Performed By: #### G FR, LIPID, HFP, A1C, IBC, TSH, CBC, ANEU, FT4, FERR, ADIFF, CMP, FE, VIDH, FT3 #### [address] [address] #### FOL, B12 #### [address] [address] WBC 10.9 10 3/mcL High 4.6-10.8 [facility] ([place]) Comment on above: Performed By: #### G FR, LIPID, HFP, A1C, IBC, TSH, CBC, ANEU, FT4, FERR, ADIFF, CMP, FE, VIDH, FT3 #### [address] [address] #### FOL, B12 #### [place] [address] LABORATORYOrdered By: Billie Ibarra on 03-31-2023 Basophil, Absolute 0.0 103/mcL Invalid Interpretation Code 0.0 - 0.2 10^3/mcL AO Workflow SS Basophils/100 WBC (Bld) 0.1 % Invalid Interpretation Code 0.0 - 2.5 % AO Workflow SS Eosinophil, Absolute 0.0 103/mcL Invalid Interpretation Code 0.0 - 0.4 10^3/mcL AO Workflow SS Eosinophils/100 WBC (Bld) 0.0 % Invalid Interpretation Code 0.0 - 7.0 % AO Workflow SS Erythrocyte distribution width (RBC) [Ratio] 13.9 % Invalid Interpretation Code 11.5 - 14.5 % AO Workflow SS Hematocrit (Bld) [Volume fraction] 33.1 % Invalid Interpretation Code 37.0 - 47.0 % AO Workflow SS Hemoglobin (Bld) [Mass/Vol] 11.5 G/dL Invalid Interpretation Code 12.0 - 16.0 G/dL AO Workflow SS Lymphocyte, Absolute 1.2 103/mcL Invalid Interpretation Code 0.8 - 3.9 10^3/mcL AO Workflow SS Lymphocytes/100 WBC (Bld) 11.4 % Invalid Interpretation Code 10.0 - 50.0 % AO Workflow SS MCH (RBC) [Entitic mass] 32.3 pg Invalid Interpretation Code 27.0 - 31.2 pg AO Workflow SS MCHC 34.7 G/dL Invalid Interpretation Code 33.0 - 37.0 G/dL AO Workflow SS MCV (RBC) [Entitic vol] 93.0 fL Invalid Interpretation Code 80.0 - 94.0 fL AO Workflow SS Monocyte, Absolute 0.8 103/mcL Invalid Interpretation Code 0.2 - 1.0 10^3/mcL AO Workflow SS Monocytes/100 WBC (Bld) 7.6 % Invalid Interpretation Code 1.7 - 13.0 % AO Workflow SS Neutrophil, Absolute 8.8 103/mcL Invalid Interpretation Code 2.9 - 6.2 10^3/mcL AO Workflow SS Neutrophils/100 WBC (Bld) 80.9 % Invalid Interpretation Code 37.0 - 80.0 % AO Workflow SS Platelet mean volume (Bld) [Entitic vol] 9.3 fL Invalid Interpretation Code 7.4 - 10.4 fL AO Workflow SS Platelets (Bld) [#/Vol] 155 103/mcL Invalid Interpretation Code 130 - 400 10^3/mcL AO Workflow SS RBC (Bld) [#/Vol] 3.55 106/mcL Invalid Interpretation Code 4.20 - 5.40 10^6/mcL AO Workflow SS WBC (Bld) [#/Vol] 10.9 103/mcL Invalid Interpretation Code 4.6 - 10.8 10^3/mcL AO Workflow SS RPRon 03-31-2023 Reagin Ab RPR Ql (S) Non-Reactive Normal Non-Reactive [facility] ([place]) Comment on above: Result Comment: The RPR test is a non-treponemal assay useful as an aid in the diagnosis of primary and secondary syphilis. It converts to positive generally within 2 weeks after the appearance of a lesion. This test is also useful for monitoring response to antibiotic therapy. A positive RPR screening test will be followed by the FTA ABS test. False positive RPR tests may occur in 1) patients with underlying autoimmune disorders, 2) elderly patients, 3) , and 4) other conditions with abnormal serum globulins. Performed By: #### G FR, LIPID, HFP, A1C, IBC, TSH, CBC, ANEU, FT4, FERR, ADIFF, CMP, FE, VIDH, FT3 #### [address] [address] #### FOL, B12 #### [address] [address] .Auto Diffon 03-30-2023 Basophil, Absolute 0.0 10 3/mcL Normal 0.0-0.2 [facility] ([place]) Comment on above: Performed By: #### G FR, LIPID, HFP, A1C, IBC, TSH, CBC, ANEU, FT4, FERR, ADIFF, CMP, FE, VIDH, FT3 #### [address] [address] #### FOL, B12 #### [address] [address] Basophils/100 WBC (Bld) 0.1 % Normal 0.0-2.5 [facility] ([place]) Comment on above: Performed By: #### G FR, LIPID, HFP, A1C, IBC, TSH, CBC, ANEU, FT4, FERR, ADIFF, CMP, FE, VIDH, FT3 #### [address] [address] #### FOL, B12 #### [address] [address] Eosinophil, Absolute 0.0 10 3/mcL Normal 0.0-0.4 Pending sale to [facility] ([place]) Comment on above: Performed By: #### G FR, LIPID, HFP, A1C, IBC, TSH, CBC, ANEU, FT4, FERR, ADIFF, CMP, FE, VIDH, FT3 #### [address] [address] #### FOL, B12 #### [address] [address] Eosinophils/100 WBC (Bld) 0.2 % Normal 0.0-7.0 [facility] ([place]) Comment on above: Performed By: #### G FR, LIPID, HFP, A1C, IBC, TSH, CBC, ANEU, FT4, FERR, ADIFF, CMP, FE, VIDH, FT3 #### [address] [address] #### FOL, B12 #### [address] [address] Lymphocyte, Absolute 1.8 10 3/mcL Normal 0.8-3.9 Pending sale to [facility] ([place]) Comment on above: Performed By: #### G FR, LIPID, HFP, A1C, IBC, TSH, CBC, ANEU, FT4, FERR, ADIFF, CMP, FE, VIDH, FT3 #### [address] [address] #### FOL, B12 #### [address] [address] Lymphocytes/100 WBC (Bld) 16.8 % Normal 10.0-50.0 [facility] ([place]) Comment on above: Performed By: #### G FR, LIPID, HFP, A1C, IBC, TSH, CBC, ANEU, FT4, FERR, ADIFF, CMP, FE, VIDH, FT3 #### [address] [address] #### FOL, B12 #### [address] [address] Monocyte, Absolute 0.8 10 3/mcL Normal 0.2-1.0 [facility] ([place]) Comment on above: Performed By: #### G FR, LIPID, HFP, A1C, IBC, TSH, CBC, ANEU, FT4, FERR, ADIFF, CMP, FE, VIDH, FT3 #### [address] [address] #### FOL, B12 #### [address] [address] Monocytes/100 WBC (Bld) 7.2 % Normal 1.7-13.0 [facility] ([place] Comment on above: Performed By: #### G FR, LIPID, HFP, A1C, IBC, TSH, CBC, ANEU, FT4, FERR, ADIFF, CMP, FE, VIDH, FT3 #### [address] [address] #### FOL, B12 #### [address] [address] Neutrophils/100 WBC (Bld) 75.7 % Normal 37.0-80.0 [facility] ([place]) Comment on above: Performed By: #### G FR, LIPID, HFP, A1C, IBC, TSH, CBC, ANEU, FT4, FERR, ADIFF, CMP, FE, VIDH, FT3 #### [address] [address] #### FOL, B12 #### [address] [address] .NEUABSon 03-30-2023 Neutrophil, Absolute 8.2 10 3/mcL High 2.9-6.2 Pending sale to [facility] ([place]) Comment on above: Performed By: #### G FR, LIPID, HFP, A1C, IBC, TSH, CBC, ANEU, FT4, FERR, ADIFF, CMP, FE, VIDH, FT3 #### [address] [address] #### FOL, B12 #### [address] [address] CBCon 03-30-2023 Erythrocyte distribution width (RBC) [Ratio] 13.8 % Normal 11.5-14.5 [facility] ([place]) Comment on above: Performed By: #### G FR, LIPID, HFP, A1C, IBC, TSH, CBC, ANEU, FT4, FERR, ADIFF, CMP, FE, VIDH, FT3 #### [address] [address] #### FOL, B12 #### [address] [address] Hematocrit (Bld) [Volume fraction] 37.2 % Normal 37.0-47.0 [facility] ([place]) Comment on above: Performed By: #### G FR, LIPID, HFP, A1C, IBC, TSH, CBC, ANEU, FT4, FERR, ADIFF, CMP, FE, VIDH, FT3 #### [address] [address] #### FOL, B12 #### [address] [address] Hgb 12.9 G/dL Normal 12.0-16.0 [facility] ([place]) Comment on above: Performed By: #### G FR, LIPID, HFP, A1C, IBC, TSH, CBC, ANEU, FT4, FERR, ADIFF, CMP, FE, VIDH, FT3 #### [address] [address] #### FOL, B12 #### [address] [address] MCH (RBC) [Entitic mass] 32.2 pg High 27.0-31.2 [facility] ([place]) Comment on above: Performed By: #### G FR, LIPID, HFP, A1C, IBC, TSH, CBC, ANEU, FT4, FERR, ADIFF, CMP, FE, VIDH, FT3 #### [address] [address] #### FOL, B12 #### [address] [address] MCHC 34.7 G/dL Normal 33.0-37.0 [facility] ([place]) Comment on above: Performed By: #### G FR, LIPID, HFP, A1C, IBC, TSH, CBC, ANEU, FT4, FERR, ADIFF, CMP, FE, VIDH, FT3 #### [address] [address] #### FOL, B12 #### [place] [address] MCV (RBC) [Entitic vol] 92.8 fL Normal 80.0-94.0 [facility] ([place] Comment on above: Performed By: #### G FR, LIPID, HFP, A1C, IBC, TSH, CBC, ANEU, FT4, FERR, ADIFF, CMP, FE, VIDH, FT3 #### [place] [address] #### FOL, B12 #### [place] [address] Platelet 169 10 3/mcL Normal 130-400 [facility] ([place]) Comment on above: Performed By: #### G FR, LIPID, HFP, A1C, IBC, TSH, CBC, ANEU, FT4, FERR, ADIFF, CMP, FE, VIDH, FT3 #### [place] [address] #### FOL, B12 #### [address] [address] Platelet mean volume (Bld) [Entitic vol] 9.7 fL Normal 7.4-10.4 [facility] ([place]) Comment on above: Performed By: #### G FR, LIPID, HFP, A1C, IBC, TSH, CBC, ANEU, FT4, FERR, ADIFF, CMP, FE, VIDH, FT3 #### [place] [address] #### FOL, B12 #### [address] [address] RBC 4.01 10 6/mcL Low 4.20-5.40 [facility] ([place]) Comment on above: Performed By: #### G FR, LIPID, HFP, A1C, IBC, TSH, CBC, ANEU, FT4, FERR, ADIFF, CMP, FE, VIDH, FT3 #### [address] [address] #### FOL, B12 #### [place] [address] WBC 10.8 10 3/mcL Normal 4.6-10.8 [facility] ([place]) Comment on above: Performed By: #### G FR, LIPID, HFP, A1C, IBC, TSH, CBC, ANEU, FT4, FERR, ADIFF, CMP, FE, VIDH, FT3 #### [address] [address] #### FOL, B12 #### [place] [address] Gel ABOon 03-30-2023 ABO/Rh Interp Positive Invalid Interpretation Code [facility] ([place]) Comment on above: Performed By: #### G FR, LIPID, HFP, A1C, IBC, TSH, CBC, ANEU, FT4, FERR, ADIFF, CMP, FE, VIDH, FT3 #### [address] [address] #### FOL, B12 #### [place] [address] Gel ABSon 03-30-2023 Antibody Screen Gel Negative Normal [facility] ([place]) Comment on above: Performed By: #### G FR, LIPID, HFP, A1C, IBC, TSH, CBC, ANEU, FT4, FERR, ADIFF, CMP, FE, VIDH, FT3 #### [address] [address] #### FOL, B12 #### [place] [address] LABORATORYOrdered By: Lilia Espinoza on 03-30-2023 ABO/Rh Interp Positive Invalid Interpretation Code AO BB SS Antibody Screen Gel Negative ABSC (03/30/23 7:57 AM) Invalid Interpretation Code AO BB SS LABORATORYOrdered By: Isabelle althea Ellis on 03-30-2023 Basophil, Absolute 0.0 103/mcL Invalid Interpretation Code 0.0 - 0.2 10^3/mcL AO Workflow SS Basophils/100 WBC (Bld) 0.1 % Invalid Interpretation Code 0.0 - 2.5 % AO Workflow SS Eosinophil, Absolute 0.0 103/mcL Invalid Interpretation Code 0.0 - 0.4 10^3/mcL AO Workflow SS Eosinophils/100 WBC (Bld) 0.2 % Invalid Interpretation Code 0.0 - 7.0 % AO Workflow SS Erythrocyte distribution width (RBC) [Ratio] 13.8 % Invalid Interpretation Code 11.5 - 14.5 % AO Workflow SS Hematocrit (Bld) [Volume fraction] 37.2 % Invalid Interpretation Code 37.0 - 47.0 % AO Workflow SS Hemoglobin (Bld) [Mass/Vol] 12.9 G/dL Invalid Interpretation Code 12.0 - 16.0 G/dL AO Workflow SS Lymphocyte, Absolute 1.8 103/mcL Invalid Interpretation Code 0.8 - 3.9 10^3/mcL AO Workflow SS Lymphocytes/100 WBC (Bld) 16.8 % Invalid Interpretation Code 10.0 - 50.0 % AO Workflow SS MCH (RBC) [Entitic mass] 32.2 pg Invalid Interpretation Code 27.0 - 31.2 pg AO Workflow SS MCHC 34.7 G/dL Invalid Interpretation Code 33.0 - 37.0 G/dL AO Workflow SS MCV (RBC) [Entitic vol] 92.8 fL Invalid Interpretation Code 80.0 - 94.0 fL AO Workflow SS Monocyte, Absolute 0.8 103/mcL Invalid Interpretation Code 0.2 - 1.0 10^3/mcL AO Workflow SS Monocytes/100 WBC (Bld) 7.2 % Invalid Interpretation Code 1.7 - 13.0 % AO Workflow SS Neutrophil, Absolute 8.2 103/mcL Invalid Interpretation Code 2.9 - 6.2 10^3/mcL AO Workflow SS Neutrophils/100 WBC (Bld) 75.7 % Invalid Interpretation Code 37.0 - 80.0 % AO Workflow SS Platelet mean volume (Bld) [Entitic vol] 9.7 fL Invalid Interpretation Code 7.4 - 10.4 fL AO Workflow SS Platelets (Bld) [#/Vol] 169 103/mcL Invalid Interpretation Code 130 - 400 10^3/mcL AO Workflow SS RBC (Bld) [#/Vol] 4.01 106/mcL Invalid Interpretation Code 4.20 - 5.40 10^6/mcL AO Workflow SS WBC (Bld) [#/Vol] 10.8 103/mcL Invalid Interpretation Code 4.6 - 10.8 10^3/mcL AO Workflow SS LABORATORYOrdered By: Dottie Bedolla on 03-30-2023 Reagin Ab RPR Ql (S) Non-Reactive (03/30/23 7:57 AM) Invalid Interpretation Code Non-Reactive Man Viro/Sero SS GBSPCRon 03-10-2023 Group B Strep (PCR) Negative Normal Negative [facility] ([place]) Comment on above: Performed By: #### G BSPCR #### [address] [address] Group B Strep PCR Int Normal [facility] ([place]) Comment on above: Result Comment: Grou p B Streptococcus DNA not detected by real-time PCR. A negative result does not rule out the possibility of Group B streptococcus. Assay should be used as an adjunct to clinical observations and other information available to the physician. The test is not intended to differentiate carriers of Group B streptococcus from those with streptococcal disease. See Below Performed By: #### G BSPCR #### [address] [address] RPRon 03-10-2023 Reagin Ab RPR Ql (S) Non-Reactive Normal Non-Reactive [facility] ([place]) Comment on above: Result Comment: The RPR test is a non-treponemal assay useful as an aid in the diagnosis of primary and secondary syphilis. It converts to positive generally within 2 weeks after the appearance of a lesion. This test is also useful for monitoring response to antibiotic therapy. A positive RPR screening test will be followed by the FTA ABS test. False positive RPR tests may occur in 1) patients with underlying autoimmune disorders, 2) elderly patients, 3) , and 4) other conditions with abnormal serum globulins. Performed By: #### G FR, LIPID, HFP, A1C, IBC, TSH, CBC, ANEU, FT4, FERR, ADIFF, CMP, FE, VIDH, FT3 #### [address] [address] #### FOL, B12 #### [address] [address] .Auto Diffon 03-09-2023 Basophil, Absolute 0.0 10 3/mcL Normal 0.0-0.2 [facility] ([place]) Comment on above: Performed By: #### G FR, LIPID, HFP, A1C, IBC, TSH, CBC, ANEU, FT4, FERR, ADIFF, CMP, FE, VIDH, FT3 #### [address] [address] #### FOL, B12 #### [address] [address] Basophils/100 WBC (Bld) 0.2 % Normal 0.0-2.5 [facility] ([place]) Comment on above: Performed By: #### G FR, LIPID, HFP, A1C, IBC, TSH, CBC, ANEU, FT4, FERR, ADIFF, CMP, FE, VIDH, FT3 #### [address] [address] #### FOL, B12 #### [address] [address] Eosinophil, Absolute 0.0 10 3/mcL Normal 0.0-0.4 Pending sale to [facility] ([place]) Comment on above: Performed By: #### G FR, LIPID, HFP, A1C, IBC, TSH, CBC, ANEU, FT4, FERR, ADIFF, CMP, FE, VIDH, FT3 #### [address] [address] #### FOL, B12 #### [address] [address] Eosinophils/100 WBC (Bld) 0.3 % Normal 0.0-7.0 [facility] ([place]) Comment on above: Performed By: #### G FR, LIPID, HFP, A1C, IBC, TSH, CBC, ANEU, FT4, FERR, ADIFF, CMP, FE, VIDH, FT3 #### [address] [address] #### FOL, B12 #### [address] [address] Lymphocyte, Absolute 1.5 10 3/mcL Normal 0.8-3.9 Pending sale to [facility] ([place]) Comment on above: Performed By: #### G FR, LIPID, HFP, A1C, IBC, TSH, CBC, ANEU, FT4, FERR, ADIFF, CMP, FE, VIDH, FT3 #### [address] [address] #### FOL, B12 #### [address] [address] Lymphocytes/100 WBC (Bld) 15.8 % Normal 10.0-50.0 [facility] ([place]) Comment on above: Performed By: #### G FR, LIPID, HFP, A1C, IBC, TSH, CBC, ANEU, FT4, FERR, ADIFF, CMP, FE, VIDH, FT3 #### [address] [address] #### FOL, B12 #### [address] [address] Monocyte, Absolute 0.6 10 3/mcL Normal 0.2-1.0 [facility] ([place]) Comment on above: Performed By: #### G FR, LIPID, HFP, A1C, IBC, TSH, CBC, ANEU, FT4, FERR, ADIFF, CMP, FE, VIDH, FT3 #### [address] [address] #### FOL, B12 #### [address] [address] Monocytes/100 WBC (Bld) 6.6 % Normal 1.7-13.0 [facility] ([place]) Comment on above: Performed By: #### G FR, LIPID, HFP, A1C, IBC, TSH, CBC, ANEU, FT4, FERR, ADIFF, CMP, FE, VIDH, FT3 #### [address] [address] #### FOL, B12 #### [address] [address] Neutrophils/100 WBC (Bld) 77.1 % Normal 37.0-80.0 [facility] ([place]) Comment on above: Performed By: #### G FR, LIPID, HFP, A1C, IBC, TSH, CBC, ANEU, FT4, FERR, ADIFF, CMP, FE, VIDH, FT3 #### [address] [address] #### FOL, B12 #### [address] [address] .NEUABSon 03-09-2023 Neutrophil, Absolute 7.4 10 3/mcL High 2.9-6.2 Pending sale to [facility] ([place]) Comment on above: Performed By: #### G FR, LIPID, HFP, A1C, IBC, TSH, CBC, ANEU, FT4, FERR, ADIFF, CMP, FE, VIDH, FT3 #### [address] [address] #### FOL, B12 #### [address] [address] CBCon 03-09-2023 Erythrocyte distribution width (RBC) [Ratio] 13.9 % Normal 11.5-14.5 [facility] ([place]) Comment on above: Performed By: #### G FR, LIPID, HFP, A1C, IBC, TSH, CBC, ANEU, FT4, FERR, ADIFF, CMP, FE, VIDH, FT3 #### [address] [address] #### FOL, B12 #### [address] [address] Hematocrit (Bld) [Volume fraction] 36.3 % Low 37.0-47.0 [facility] ([place]) Comment on above: Performed By: #### G FR, LIPID, HFP, A1C, IBC, TSH, CBC, ANEU, FT4, FERR, ADIFF, CMP, FE, VIDH, FT3 #### [address] [address] #### FOL, B12 #### [address] [address] Hgb 12.6 G/dL Normal 12.0-16.0 [facility] ([place]) Comment on above: Performed By: #### G FR, LIPID, HFP, A1C, IBC, TSH, CBC, ANEU, FT4, FERR, ADIFF, CMP, FE, VIDH, FT3 #### [address] [address] #### FOL, B12 #### [address] [address] MCH (RBC) [Entitic mass] 32.4 pg High 27.0-31.2 [facility] ([place]) Comment on above: Performed By: #### G FR, LIPID, HFP, A1C, IBC, TSH, CBC, ANEU, FT4, FERR, ADIFF, CMP, FE, VIDH, FT3 #### [place] [address] #### FOL, B12 #### [place] [address] MCHC 34.7 G/dL Normal 33.0-37.0 [facility] ([place]) Comment on above: Performed By: #### G FR, LIPID, HFP, A1C, IBC, TSH, CBC, ANEU, FT4, FERR, ADIFF, CMP, FE, VIDH, FT3 #### [place] [address] #### FOL, B12 #### [address] [address] MCV (RBC) [Entitic vol] 93.3 fL Normal 80.0-94.0 [facility] ([place]) Comment on above: Performed By: #### G FR, LIPID, HFP, A1C, IBC, TSH, CBC, ANEU, FT4, FERR, ADIFF, CMP, FE, VIDH, FT3 #### [place] [address] #### FOL, B12 #### [address] [address] Platelet 171 10 3/mcL Normal 130-400 [facility] ([place]) Comment on above: Performed By: #### G FR, LIPID, HFP, A1C, IBC, TSH, CBC, ANEU, FT4, FERR, ADIFF, CMP, FE, VIDH, FT3 #### [place] [address] #### FOL, B12 #### [address] [address] Platelet mean volume (Bld) [Entitic vol] 8.5 fL Normal 7.4-10.4 [facility] ([place]) Comment on above: Performed By: #### G FR, LIPID, HFP, A1C, IBC, TSH, CBC, ANEU, FT4, FERR, ADIFF, CMP, FE, VIDH, FT3 #### [place] [address] #### FOL, B12 #### [address] [address] RBC 3.89 10 6/mcL Low 4.20-5.40 [facility] ([place]) Comment on above: Performed By: #### G FR, LIPID, HFP, A1C, IBC, TSH, CBC, ANEU, FT4, FERR, ADIFF, CMP, FE, VIDH, FT3 #### [place] [address] #### FOL, B12 #### [place] [address] WBC 9.7 10 3/mcL Normal 4.6-10.8 [facility] ([place]) Comment on above: Performed By: #### G FR, LIPID, HFP, A1C, IBC, TSH, CBC, ANEU, FT4, FERR, ADIFF, CMP, FE, VIDH, FT3 #### [place] [address] #### FOL, B12 #### [address] [address] LABORATORYOrdered By: Isabella Eng on 03-09-2023 Group B Strep PCR Int Group B Streptococ cus DNA not detected by real-time PCR. A negative result does not rule out the possibility of Group B streptococcus. Assay should be used as an adjunct to clinical observations and other information available to the physician. The test is not intended to differentiate carriers of Group B streptococcus from those with streptococcal disease. Invalid Interpretation Code AO Auto Urine SS S. agalactiae DNA CHICHO+probe Ql (Unsp spec) Negative *NA* (03/09/23 4:25 PM) Invalid Interpretation Code Negative AO Auto Urine SS LABORATORYOrdered By: Dhara Velez on 03-09-2023 Basophil, Absolute 0.0 103/mcL Invalid Interpretation Code 0.0 - 0.2 10^3/mcL AO Workflow SS Basophils/100 WBC (Bld) 0.2 % Invalid Interpretation Code 0.0 - 2.5 % AO Workflow SS Eosinophil, Absolute 0.0 103/mcL Invalid Interpretation Code 0.0 - 0.4 10^3/mcL AO Workflow SS Eosinophils/100 WBC (Bld) 0.3 % Invalid Interpretation Code 0.0 - 7.0 % AO Workflow SS Erythrocyte distribution width (RBC) [Ratio] 13.9 % Invalid Interpretation Code 11.5 - 14.5 % AO Workflow SS Hematocrit (Bld) [Volume fraction] 36.3 % Invalid Interpretation Code 37.0 - 47.0 % AO Workflow SS Hemoglobin (Bld) [Mass/Vol] 12.6 G/dL Invalid Interpretation Code 12.0 - 16.0 G/dL AO Workflow SS Lymphocyte, Absolute 1.5 103/mcL Invalid Interpretation Code 0.8 - 3.9 10^3/mcL AO Workflow SS Lymphocytes/100 WBC (Bld) 15.8 % Invalid Interpretation Code 10.0 - 50.0 % AO Workflow SS MCH (RBC) [Entitic mass] 32.4 pg Invalid Interpretation Code 27.0 - 31.2 pg AO Workflow SS MCHC 34.7 G/dL Invalid Interpretation Code 33.0 - 37.0 G/dL AO Workflow SS MCV (RBC) [Entitic vol] 93.3 fL Invalid Interpretation Code 80.0 - 94.0 fL AO Workflow SS Monocyte, Absolute 0.6 103/mcL Invalid Interpretation Code 0.2 - 1.0 10^3/mcL AO Workflow SS Monocytes/100 WBC (Bld) 6.6 % Invalid Interpretation Code 1.7 - 13.0 % AO Workflow SS Neutrophil, Absolute 7.4 103/mcL Invalid Interpretation Code 2.9 - 6.2 10^3/mcL AO Workflow SS Neutrophils/100 WBC (Bld) 77.1 % Invalid Interpretation Code 37.0 - 80.0 % AO Workflow SS Platelet mean volume (Bld) [Entitic vol] 8.5 fL Invalid Interpretation Code 7.4 - 10.4 fL AO Workflow SS Platelets (Bld) [#/Vol] 171 103/mcL Invalid Interpretation Code 130 - 400 10^3/mcL AO Workflow SS RBC (Bld) [#/Vol] 3.89 106/mcL Invalid Interpretation Code 4.20 - 5.40 10^6/mcL AO Workflow SS WBC (Bld) [#/Vol] 9.7 103/mcL Invalid Interpretation Code 4.6 - 10.8 10^3/mcL AO Workflow SS AMNIon 03-06-2023 Amnisure Negative Normal Negative [facility] ([place]) Comment on above: Performed By: #### G FR, LIPID, HFP, A1C, IBC, TSH, CBC, ANEU, FT4, FERR, ADIFF, CMP, FE, VIDH, FT3 #### [address] [address] #### FOL, B12 #### [address] [address] LABORATORYOrdered By: Lilia Espinoza on 03-06-2023 Mpoht-3-[id number] .placental Ql (Vag fld) Negative (03/06/23 5:57 PM) Invalid Interpretation Code Negative AO Rapid Testing SS LABORATORYOrdered By: SYSTEM SYSTEM on 01-26-2023 Albumin BCP dye [Mass/Vol] 3.2 G/dL Invalid Interpretation Code 3.5 - 5.0 G/dL AO ADM SS Albumin/Globulin [Mass ratio] 1.0 {ratio} Invalid Interpretation Code 1.1 - 2.5 ratio AO ADM SS ALP [Catalytic activity/Vol] 91 U/L Invalid Interpretation Code 40 - 135 U/L AO ADM SS ALT With P-5'-P [Catalytic activity/Vol] 19 U/L Invalid Interpretation Code 14 - 59 U/L AO ADM SS AST With P-5'-P [Catalytic activity/Vol] 17 U/L Invalid Interpretation Code 10 - 40 U/L AO ADM SS Bilirubin [Mass/Vol] 0.4 mg/dL Invalid Interpretation Code 0.2 - 1.0 mg/dL AO ADM SS Calcium [Mass/Vol] 8.9 mg/dL Invalid Interpretation Code 8.4 - 10.2 mg/dL AO ADM SS Chloride [Moles/Vol] 104 mmol/L Invalid Interpretation Code 98 - 107 mmol/L AO ADM SS CO2 [Moles/Vol] 23 mmol/L Invalid Interpretation Code 22 - 29 mmol/L AO ADM SS Creatinine [Mass/Vol] 0.57 mg/dL Invalid Interpretation Code 0.55 - 1.02 mg/dL AO ADM SS Electrolyte Balance 12.0 mEq/L Invalid Interpretation Code 4.0 - 15.0 mEq/L AO ADM SS GFR/1.73 sq M.predicted among blacks MDRD (S/P/Bld) [Vol rate/Area] 159 ml/min/1.73sqm Invalid Interpretation Code AO Chemistry S GFR/1.73 sq M.predicted among non-blacks MDRD (S/P/Bld) [Vol rate/Area] 131 ml/min/1.73sqm Invalid Interpretation Code AO Chemistry S Globulin 3.2 G/dL Invalid Interpretation Code AO ADM SS Glucose [Mass/Vol] 91 mg/dL Invalid Interpretation Code 70 - 105 mg/dL AO ADM SS Potassium [Moles/Vol] 3.8 mmol/L Invalid Interpretation Code 3.5 - 5.1 mmol/L AO ADM SS Protein [Mass/Vol] 6.4 G/dL Invalid Interpretation Code 6.4 - 8.2 G/dL AO ADM SS Sodium [Moles/Vol] 139 mmol/L Invalid Interpretation Code 136 - 145 mmol/L AO ADM SS Urea nitrogen [Mass/Vol] 2 mg/dL Invalid Interpretation Code 7 - 18 mg/dL AO ADM SS Urea nitrogen/Creatinine [Mass ratio] 4 ratio Invalid Interpretation Code 7 - 27 ratio AO ADM SS Uric Acid Lvl 5.0 mg/dL Invalid Interpretation Code 2.6 - 6.2 mg/dL AO ADM SS LABORATORYOrdered By: Milady Troy on 01-26-2023 Appearance (U) Clear (01/26/23 2:29 AM) Invalid Interpretation Code Clear AO Auto Urine SS Basophil, Absolute 0.0 103/mcL Invalid Interpretation Code 0.0 - 0.2 10^3/mcL AO Workflow SS Basophils/100 WBC (Bld) 0.2 % Invalid Interpretation Code 0.0 - 2.5 % AO Workflow SS Bilirubin Ql (U) Negative (01/26/23 2:29 AM) Invalid Interpretation Code Negative AO Auto Urine SS Color (U) Yellow (01/26/23 2:29 AM) Invalid Interpretation Code AO Auto Urine SS Eosinophil, Absolute 0.0 103/mcL Invalid Interpretation Code 0.0 - 0.4 10^3/mcL AO Workflow SS Eosinophils/100 WBC (Bld) 0.2 % Invalid Interpretation Code 0.0 - 7.0 % AO Workflow SS Erythrocyte distribution width (RBC) [Ratio] 14.1 % Invalid Interpretation Code 11.5 - 14.5 % AO Workflow SS Glucose Test strip (U) [Mass/Vol] Negative Invalid Interpretation Code Negativemg/dL AO Auto Urine SS Hematocrit (Bld) [Volume fraction] 35.0 % Invalid Interpretation Code 37.0 - 47.0 % AO Workflow SS Hemoglobin (Bld) [Mass/Vol] 12.3 G/dL Invalid Interpretation Code 12.0 - 16.0 G/dL AO Workflow SS Hemoglobin Auto test strip (U) [Mass/Vol] Trace *ABN* (01/26/23 2:29 AM) Invalid Interpretation Code Negative AO Auto Urine SS Ketones Ql (U) 40 mg/dL Invalid Interpretation Code Negativemg/dL AO Auto Urine SS Lymphocyte, Absolute 1.6 103/mcL Invalid Interpretation Code 0.8 - 3.9 10^3/mcL AO Workflow SS Lymphocytes/100 WBC (Bld) 15.9 % Invalid Interpretation Code 10.0 - 50.0 % AO Workflow SS MCH (RBC) [Entitic mass] 32.6 pg Invalid Interpretation Code 27.0 - 31.2 pg AO Workflow SS MCHC 35.1 G/dL Invalid Interpretation Code 33.0 - 37.0 G/dL AO Workflow SS MCV (RBC) [Entitic vol] 93.1 fL Invalid Interpretation Code 80.0 - 94.0 fL AO Workflow SS Monocyte, Absolute 0.8 103/mcL Invalid Interpretation Code 0.2 - 1.0 10^3/mcL AO Workflow SS Monocytes/100 WBC (Bld) 7.6 % Invalid Interpretation Code 1.7 - 13.0 % AO Workflow SS Neutrophil, Absolute 7.6 103/mcL Invalid Interpretation Code 2.9 - 6.2 10^3/mcL AO Workflow SS Neutrophils/100 WBC (Bld) 76.1 % Invalid Interpretation Code 37.0 - 80.0 % AO Workflow SS Platelet mean volume (Bld) [Entitic vol] 8.2 fL Invalid Interpretation Code 7.4 - 10.4 fL AO Workflow SS Platelets (Bld) [#/Vol] 202 103/mcL Invalid Interpretation Code 130 - 400 10^3/mcL AO Workflow SS RBC (Bld) [#/Vol] 3.77 106/mcL Invalid Interpretation Code 4.20 - 5.40 10^6/mcL AO Workflow SS UA Leuk Est Trace *ABN* (01/26/23 2:29 AM) Invalid Interpretation Code Negative AO Auto Urine SS UA Nitrite Negative (01/26/23 2:29 AM) Invalid Interpretation Code Negative AO Auto Urine SS UA pH 7.0 (01/26/23 2:29 AM) Invalid Interpretation Code 5.0 - 8.0 AO Auto Urine SS UA Protein Negative Invalid Interpretation Code Negativemg/dL AO Auto Urine SS UA RBC None Seen /HPF Invalid Interpretation Code None Seen/HPF AO Auto Urine SS UA Spec Grav 1.015 (01/26/23 2:29 AM) Invalid Interpretation Code 1.015-1.025 AO Auto Urine SS UA Specimen Type Clean Catch (01/26/23 2:29 AM) Invalid Interpretation Code AO Auto Urine SS UA Squam Epithelial 0-5 /HPF Invalid Interpretation Code None Seen/HPF AO Auto Urine SS UA Urobilinogen 0.2 E.U./dL Invalid Interpretation Code 0.2-1.0E.U./dL AO Auto Urine SS WBC (Bld) [#/Vol] 10.0 103/mcL Invalid Interpretation Code 4.6 - 10.8 10^3/mcL AO Workflow SS WBC LM.HPF (Urine sed) [#/Area] 0-5 /HPF Invalid Interpretation Code None Seen/HPF AO Auto Urine SS LABORATORYOrdered By: Sal Powell on 01-19-2023 Glucose [Mass/Vol] 120 mg/dL Invalid Interpretation Code 70 - 145 mg/dL AO ADM SS Glucose [Mass/Vol] 127 mg/dL Invalid Interpretation Code 70 - 165 mg/dL AO ADM SS LABORATORYOrdered By: Hiwot Pappas on 01-19-2023 Glucose [Mass/Vol] 115 mg/dL Invalid Interpretation Code 120 - 190 mg/dL AO ADM SS Glucose [Mass/Vol] 84 mg/dL Invalid Interpretation Code 83 - 110 mg/dL AO ADM SS CNCOon 11-12-2022 CNCO Letter Text Normal [facility] Bacteria Ur Culton 3 Bacteria identified Cx Nom (U) CULTURE, URINE: <10,000 CFU/ml Normal Urogenital Den Normal [facility] Comment on above: Performed By: #### 6 30-4 #### [facility] CLIA [id number] [address] ED NOTEon 10-29-2022 ED NOTE HNO ID: [id number] Author: Martinez Crouch RN Service: ? Author Type: Registered Nurse Type: ED Notes Filed: 10/28/2022 10:37 PM Note Text: Bed: 26-ED Expected date: Expected time: Means of arrival: Comments: triage Normal [facility] ED PROV NOTEon 10-29-2022 ED PROV NOTE HNO ID: [id number] Author: Danitza Reis DO Service: Emergency Medicine Author Type: Physician Type: ED Provider Notes Filed: 10/29/2022 3:23 AM Note Text: ED Attending attestation: I evaluated the patient and personally participated in the martin components and procedures, and performed a substantive portion of the visit including all aspects of the medical decision making. I agree with the resident's findings and plan as documented and have discussed the case and management of the patient's care with the resident. HPI: 22 year old female presents complaining of NV, lightheadedness, and intermittent lower abd cramping. She is currently at 17w3d gestation. She has a history of hyperemesis and states that she has had >10 episodes of emesis each day x 2-3 days. Today, she had a fever of 101.3F today. She tried taking home meds, but couldn't keep anything down, so came in for evaluation. She denies cp, sob, syncope, dysuria or hematuria, vaginal bleeding or loss of fluids. She has not felt the baby move yet in this . Came in for eval since this felt a little different than her usual hyperemesis and round ligament pain she is used to. Attending exam: Patient nontoxic and in no distress. Cardio: RRR with normal S1 and S2. No murmurs, rubs, or gallops. Respiratory: Lungs CTA bilaterally without wheezes, rales, or rhonchi. Abdomen: Soft, mild diffuse lower abd POP. +gravid. ND, + BS. No masses. Extremities: No edema, clubbing, cyanosis. All distal pulses are equal and intact. Attending MDM: Pt is nontoxic appearing, she is clinically dehydrated, tachycardic at 117. She is afebrile and rest of her vitals are stable. Old records reviewed, pt seen by Dr. Graham (OBGYN) Several DDXs considered in this patient: UTI, round ligament pain, dehydration, appendicitis, exacerbation of hyperemesis, electrolyte abnormality, complication. She was treated with IV fluids, tylenol and zofran. UA shows microscopic hematuria with 6-10 RBCs and ketones. She has mild hypokalemia at 3.2, this was treated with KCL tab. Rest of labs are nondiagnostic. ECG interpreted by myself, shows T wave inversions in inferior and lateral leads, no previous for comparison. Resp panel neg for flu, covid, and rsv. On reevaluation, her HR improved to the 90s and she was feeling improved. Aside from being clinically dehydrated from hyperemesis, she was treated for mild hypokalemia. I have low suspicion for acute appendicitis given the lack of peritoneal findings on exam, lack of leukocytosis. FHTs at bedside are 140s seen on POCUS. Given the continued cramping and hyperemesis, recommended OB eval. Discussed with OB and recommended to send patient to OB triage for further eval. Critical Care I spent a total of 35 minutes of critical care time in the evaluation and management of this patient. This was necessary to treat or prevent deterioration of the following condition(s): Cardiovascular impairment, which the patient had and/or has a high probability of suddenly developing. The patient received IV Fluids during the time that critical care was provided.I discussed the plan of care with the RESIDENT and agree with the findings documented. Critical care time excludes separately billed procedures. DO BABS Medina CHRISTINA M 10/29/22 0323 Normal [facility] ED PROV NOTE HNO ID: [id number] Author: Danitza Reis DO Service: Emergency Medicine Author Type: Physician Type: ED Provider Notes Filed: 10/29/2022 11:09 PM Note Text: ED Provider Note Patient Name: Luz Oliveira : 2000 SERVICE DATE: 10/28/22 History Patient presents with: Dizziness: Pt arrives to triage. Pt Nausea AND Vomiting: Pt arrives to triage. Pt is 6 weeks and her OB told her to come in for dizziness, +N/V. Pt also reports her OBGYN told her there were ketones in her urine. AOX3 HPI MsOscar Oliveira is a 22 year old at 17w3d with PMH hyperemesis gravidarum, urinary reflux w/ recurrent UTI, urolithiasis presenting today with 8 days of lightheadedness. She reports lightheadedness ongoing for 8 days with worsened NBNB emesis, dysuria, and 1 day of lower abdominal pain different from her round ligament pain and fever to Tmax 101.3 ?F today. She has been using her zofran with minimal improvement, last today at 1000. She was seen by her OB recently for similar and was told she was dehydrated. She follows with OB at [place] in [place]. complicated by hyperemesis gravidarum and bleeding in early . Brief OB History Obstetric History T0 L0 SAB0 IAB0 Ectopic0 Multiple0 Live Births0 PAST MEDICAL HISTORY Diagnosis Date Cognitive disorder IEP per the School Psychologist [facility] Kidney stone Migraine Urinary reflux UTI (urinary tract infection) PAST SURGICAL HISTORY Procedure Laterality Date ORAL SURGERY PROCEDURE FAMILY HISTORY Problem Relation Age of Onset Thyroid Mother Diabetes Mother other (endometriosis) Mother other (other) Father Diabetes Maternal Grandmother Breast Cancer Maternal Grandmother Thyroid Maternal Grandmother Diabetes Maternal Grandfather Cancer Paternal Grandfather other (Myocardial infarction [Other]) Paternal Grandfather age 57 Heart Other maternal and paternal side Social History Tobacco Use Smoking status: Never Smokeless tobacco: Never Tobacco comments: dad smokes outside Vaping Use Vaping Use: Never used Substance and Sexual Activity Alcohol use: Not Currently Drug use: Never Sexual activity: Yes Partners: Male ALLERGIES Allergen Reactions Celexa [Citalopram * Other: See Comments Suicidal thoughts Escitalopram Other: See Comments Review of Systems Constitutional: Positive for activity change, chills, fatigue and fever. HENT: Negative for facial swelling and sore throat. Eyes: Negative for pain and visual disturbance. Respiratory: Negative for cough and shortness of breath. Cardiovascular: Negative for chest pain and palpitations. Gastrointestinal: Positive for abdominal pain. Negative for constipation, diarrhea, nausea and vomiting. Genitourinary: Positive for dysuria and pelvic pain. Negative for flank pain. Musculoskeletal: Negative for arthralgias and myalgias. Skin: Negative for color change and rash. Neurological: Positive for light-headedness. Negative for syncope (near syncope), weakness, numbness and headaches. Psychiatric/Behaviora l: Positive for sleep disturbance (sleeping 16 hour nights). Negative for behavioral problems and confusion. All other systems reviewed and are negative. Physical Exam Vitals BP Pulse Temp Temp src Resp SpO2 Weight Height 10/28/22211010/28/22211010/28/22211110/28/22211010/28/22211010/28/22211010/28/22211010/28/222110 136/66 (!) 117 37 ?C (98.6 ?F) Oral 20 100 % 81.2 kg (179 lb) 1.549 m (5' 1) Physical Exam Vitals and nursing note reviewed. Constitutional: General: She is not in acute distress. Appearance: She is well-developed. She is not diaphoretic. HENT: Head: Normocephalic and atraumatic. Mouth/Throat: Mouth: Mucous membranes are dry. Eyes: General: No scleral icterus. Right eye: No discharge. Left eye: No discharge. Extraocular Movements: Extraocular movements intact. Conjunctiva/sclera: Conjunctivae normal. Pupils: Pupils are equal, round, and reactive to light. Cardiovascular: Rate and Rhythm: Normal rate and regular rhythm. Pulses: Normal pulses. Radial pulses are 2+ on the right side and 2+ on the left side. Dorsalis pedis pulses are 2+ on the right side and 2+ on the left side. Posterior tibial pulses are 2+ on the right side and 2+ on the left side. Heart sounds: Normal heart sounds. No murmur heard. No gallop. Pulmonary: Effort: Pulmonary effort is normal. No respiratory distress. Breath sounds: Normal breath sounds. No stridor. Abdominal: General: There is no distension. Palpations: Abdomen is soft. There is no mass. Tenderness: There is abdominal tenderness in the right lower quadrant, suprapubic area and left lower quadrant. There is right CVA tenderness and left CVA tenderness. There is no guarding or rebound. Negative signs include Gao's sign, Rovsing (more content not included)... Normal [facility] EKGon 10-29-2022 Electrocardiogram Ventricular Rate : 129 BPM Atrial Rate : 129 BPM P-R Interval : 130 ms QRS Duration : 70 ms Q-T Interval : 300 ms QTC Calculation(Bazett) : 439 ms Calculated P [place] : 31 degrees Calculated R [place] : 66 degrees Calculated T [place] : -[address] & T WAVE ABNORMALITY, CONSIDER INFERIOR ISCHEMIA ST & T WAVE ABNORMALITY, CONSIDER ANTEROLATERAL ISCHEMIA ABNORMAL ECG WHEN COMPARED WITH ECG OF 31-MAY-2022 13:06, VENT. RATE HAS INCREASED BY 58 BPM T WAVE INVERSION NOW EVIDENT IN INFERIOR LEADS INVERTED T WAVES HAVE REPLACED NONSPECIFIC T WAVE ABNORMALITY IN ANTEROLATERAL LEADS Confirmed by DO REIS CHRISTINA ([id number]) on 10/29/2022 1:44:37 AM NAME : LUZ OLIVEIRA PID : [id number] : 2000 Gender : Female Race : ORD : Procedure Date : Oct 28 2022 22:56:10 Edit Date : Oct 29 2022 01:44:43 Diagnosis: SINUS TACHYCARDIA ST & T WAVE ABNORMALITY, CONSIDER INFERIOR ISCHEMIA ST & T WAVE ABNORMALITY, CONSIDER ANTEROLATERAL ISCHEMIA ABNORMAL ECG WHEN COMPARED WITH ECG OF 31-MAY-2022 13:06, VENT. RATE HAS INCREASED BY 58 BPM T WAVE INVERSION NOW EVIDENT IN INFERIOR LEADS INVERTED T WAVES HAVE REPLACED NONSPECIFIC T WAVE ABNORMALITY IN ANTEROLATERAL LEADS Confirmed by DO REIS CHRISTINA ([id number]) on 10/29/2022 1:44:37 AM Test Reason : Location : 4 : [facility] ED26 Overread By : DO REIS CHRISTINA Edited By : DO REIS CHRISTINA Referred By : , Acquired by : KASHIF JOHNSON Normal [facility] Urinalysis complete panel (U )on 10-29-2022 Bacteria LM.HPF (Urine sed) [#/Area] Few Abnormal None Seen [facility] Comment on above: Order Comment: Speci men Type: URINE SPECIMENOrdering Facility: [facility] Address: [address] [place] [address] Performed By: #### 2 4356-8 ####[facility] LABORATORYCLIA [id number] [place] [address] [place] Bilirubin Ql (U) Negative Normal Negative [facility] Comment on above: Order Comment: Speci men Type: URINE SPECIMENOrdering Facility: [facility] Address: [address] [place] [address] Performed By: #### 2 4356-8 ####[facility] LABORATORYCLIA [id number] [address] [place] Clarity (Unsp spec) Turbid Abnormal Clear [facility] Comment on above: Order Comment: Speci men Type: URINE SPECIMENOrdering Facility: [facility] Address: [address] [place] [address] Performed By: #### 2 4356-8 ####[facility] LABORATORYCLIA [id number] [address] [place] Color (U) Yellow Normal yellow [facility] Comment on above: Order Comment: Speci men Type: URINE SPECIMENOrdering Facility: [facility] Address: [address] [place] [address] Performed By: #### 2 4356-8 ####[facility] LABORATORYCLIA [id number] [address] [place] Epithelial cells LM.HPF (Urine sed) [#/Area] Few Normal [facility] Comment on above: Order Comment: Speci men Type: URINE SPECIMENOrdering Facility: [facility] Address: [address] [place] [address] Performed By: #### 2 4356-8 ####[facility] LABORATORYCLIA [id number] [address] [place] Glucose Test strip (U) [Mass/Vol] Negative Normal Trace, Negative [facility] Comment on above: Order Comment: Speci men Type: URINE SPECIMENOrdering Facility: [facility] Address: [address] [place] [address] Performed By: #### 2 4356-8 ####[facility] LABORATORYCLIA [id number] [address] STATES [facility] Hemoglobin Ql (U) 1+ Abnormal Negative, Trace [facility] Comment on above: Order Comment: Speci men Type: URINE SPECIMENOrdering Facility: [facility] Address: [address] [place] [address] Performed By: #### 2 4356-8 ####[facility] LABORATORYCLIA [id number] [address] Ketones Ql (U) 4+ Abnormal Negative, Trace [facility] Comment on above: Order Comment: Speci men Type: URINE SPECIMENOrdering Facility: [facility] Address: [address] [place] [address] Performed By: #### 2 4356-8 ####[facility] LABORATORYCLIA [id number] [address] [place] Leukocyte esterase Test strip Ql (U) 25 Misti/mL Normal Negative, 25 Misti/mL [facility] Comment on above: Order Comment: Speci men Type: URINE SPECIMENOrdering Facility: [facility] Address: [address] [place] [address] Performed By: #### 2 4356-8 ####[facility] LABORATORYCLIA [id number] [address] [place] Nitrite Ql (U) Negative Normal Negative [facility] Comment on above: Order Comment: Speci men Type: URINE SPECIMENOrdering Facility: [facility] Address: [address] [place] [address] Performed By: #### 2 4356-8 ####[facility] LABORATORYCLIA [id number] [address] [place] pH (U) 6.0 [pH] Normal 5.0-8.0 [facility] Comment on above: Order Comment: Speci men Type: URINE SPECIMENOrdering Facility: [facility] Address: [address] [place] [address] Performed By: #### 2 4356-8 ####[facility] LABORATORYCLIA [id number] [address] Protein (U) [Mass/Vol] 1+ Abnormal Trace, Negative [facility] Comment on above: Order Comment: Speci men Type: URINE SPECIMENOrdering Facility: [facility] Address: [address] [place] [address] Performed By: #### 2 4356-8 ####[facility] LABORATORYCLIA [id number] [address] RBC LM.HPF (Urine sed) [#/Area] 6-10 /HPF Abnormal 0-3 /HPF [facility] Comment on above: Order Comment: Speci men Type: URINE SPECIMENOrdering Facility: [facility] Address: [address] [place] [address] Performed By: #### 2 4356-8 ####[facility] LABORATORYCLIA [id number] [address] [place] [facility] Specific gravity (U) [Rel density] 1.029 Normal 1.005-1.030 [facility] Comment on above: Order Comment: Speci men Type: URINE SPECIMENOrdering Facility: [facility] Address: [address] [place] [address] Performed By: #### 2 4356-8 ####[facility] LABORATORYCLIA [id number] [address] Urobilinogen Ql (U) Normal Normal Negative [facility] Comment on above: Order Comment: Speci men Type: URINE SPECIMENOrdering Facility: [facility] Address: [address] [place] [address] Performed By: #### 2 4356-8 ####[facility] LABORATORYCLIA [id number] [address] [place] WBC LM.HPF (Urine sed) [#/Area] 0-5 /HPF Normal 0-5 /HPF [facility] Comment on above: Order Comment: Speci men Type: URINE SPECIMENOrdering Facility: [facility] Address: [address] [place] [address] Performed By: #### 2 4356-8 ####[facility] LABORATORYCLIA [id number] [place] [address] [place] Basic metabolic 2000 panelon 10-28-2022 Anion gap [Moles/Vol] 15 mmol/L Normal 9-18 [facility] Comment on above: Order Comment: Speci men Type: BLOOD SPECIMENOrdering Facility: [facility] Address: [address] [place] [address] Performed By: #### 2 4321-2, ####[facility] LABORATORYCLIA [id number] [place] [address] [place] Calcium [Mass/Vol] 10.1 mg/dL Normal 8.5-10.2 [facility] Comment on above: Order Comment: Speci men Type: BLOOD SPECIMENOrdering Facility: [facility] Address: [address] [place] [address] Performed By: #### 2 432-2, ####[facility] LABORATORYCLIA [id number] [place] [address] [place] Chloride [Moles/Vol] 102 mmol/L Normal 97-105 [facility] Comment on above: Order Comment: Speci men Type: BLOOD SPECIMENOrdering Facility: [facility] Address: [address] [place] [address] Performed By: #### 2 4321-2, ####[facility] LABORATORYCLIA [id number] [place] [address] [place] CO2 [Moles/Vol] 22 mmol/L Normal 22-30 [facility] Comment on above: Order Comment: Speci men Type: BLOOD SPECIMENOrdering Facility: [facility] Address: [address] [place] [address] Performed By: #### 2 4321-2, ####[facility] LABORATORYCLIA [id number] [place] [address] [place] [facility] Creatinine [Mass/Vol] 0.61 mg/dL Normal 0.58-0.96 [facility] Comment on above: Order Comment: Eloise lopez Type: BLOOD SPECIMENOrdering Facility: [facility] Address: [address] [place] [address] Performed By: #### 2 43210-12, ####[facility]ION HOSPITALIA [id number] [place] [address] [facility] ESTIMATED GLOMERULAR FILTRATION RATE 129 mL/min/1.73m??? Normal >=60 [facility] Comment on above: Order Comment: Eloise lopez Type: BLOOD SPECIMENOrdering Facility: [facility] Address: [address] [place] [address] Result Comment: Tierra mated Glomerular Filtration Rate (eGFR) is calculated using the 2020 CKD-EPI creatinine equation. This equation utilizes serum creatinine, sex, and age as parameters. The creatinine assay has traceable calibration to isotope dilution-mass spectrometry. Refer to KDIGO guidelines for clinical interpretation. In patients with unstable renal function, e.g. those with acute kidney injury, the eGFR may not accurately reflect actual GFR. Performed By: #### 2 ####[facility]ION HOSPITALIA [id number] [place] [address] [place] [facility] Glucose [Mass/Vol] 86 mg/dL Normal 74-99 [facility] Comment on above: Order Comment: Eloise lopez Type: BLOOD SPECIMENOrdering Facility: [facility] Address: [address] [place] [address] Result Comment: The [place] [employer] (ADA) provides guidance for cutoff values for fasting glucose and random glucose. The ADA defines fasting as no caloric intake for at least 8 hours. Fasting plasma glucose results between 100 to 125 mg/dL indicate increased risk for diabetes (prediabetes). Fasting plasma glucose results greater than or equal to 126 mg/dL meet the criteria for diagnosis of diabetes. In the absence of unequivocal hyperglycemia, results should be confirmed by repeat testing. In a patient with classic symptoms of hyperglycemia or hyperglycemic crisis, random plasma glucose results greater than or equal to 200 mg/dL meet the criteria for diagnosis of diabetes. Reference: Standards of Medical Care in Diabetes 2016, [place] [employer]. Diabetes Care. 2016.39(Suppl 1). Performed By: #### 2 4320-2, ####[facility] LABORATORYCLIA [id number] [place] [address] [place] Potassium [Moles/Vol] 3.2 mmol/L Low 3.7-5.1 [facility] Comment on above: Order Comment: Mariposai jessica Type: BLOOD SPECIMENOrdering Facility: [facility] Address: [address] [place] [address] Performed By: #### 2 4320-11, ####[facility] LABORATORYCLIA [id number] [address] STATES OF [facility] Sodium [Moles/Vol] 139 mmol/L Normal 136-144 [facility] Comment on above: Order Comment: Eloise lopez Type: BLOOD SPECIMENOrdering Facility: [facility] Address: [address] [place] [address] Performed By: #### 2 4320-11, ####[facility] LABORATORYCLIA [id number] [address] [place] [facility] Urea nitrogen [Mass/Vol] 5 mg/dL Low 7-21 [facility] Comment on above: Order Comment: [place]ip[place] men Type: BLOOD SPECIMENOrdering Facility: [facility] Address: [address] [address] Performed By: #### 2 4320-11, ####[facility] LABORATORYCLIA [id number] [address] [place] CBC W Auto Differential pane l (Bld)on 10-28-2022 Basophils (Bld) [#/Vol] 10*3/uL Normal <0.11 [facility] Comment on above: Order Comment: [place]ip[place] men Type: BLOOD SPECIMENOrdering Facility: [facility] Address: [address] [address] Performed By: #### 5 7021-8 ####[facility]ORATORYCLIA [id number] [address] Basophils/100 WBC (Bld) 0.1 % Normal [facility] Comment on above: Order Comment: Speci men Type: BLOOD SPECIMENOrdering Facility: [facility] Address: [address] [place] [address] Performed By: #### 5 7021-8 ####[facility] LABORATORYCLIA [id number] [address] Differential cell count method Nom (Bld) Auto Normal [facility] Comment on above: Order Comment: Speci men Type: BLOOD SPECIMENOrdering Facility: [facility] Address: [address] [place] [address] Performed By: #### 5 7021-8 ####[facility] LABORATORYCLIA [id number] [address] [place] Eosinophils (Bld) [#/Vol] 10*3/uL Normal <0.46 [facility] Comment on above: Order Comment: Speci men Type: BLOOD SPECIMENOrdering Facility: [facility] Address: [address] [place] [address] Performed By: #### 5 7021-8 ####[facility] LABORATORYCLIA [id number] [address] Eosinophils/100 WBC (Bld) 0.1 % Normal [facility] Comment on above: Order Comment: Speci men Type: BLOOD SPECIMENOrdering Facility: [facility] Address: [address] [place] [address] Performed By: #### 5 7021-8 ####[facility] LABORATORYCLIA [id number] [address] Erythrocyte distribution width (RBC) [Ratio] 13.8 % Normal 11.5-15.0 [facility] Comment on above: Order Comment: Speci men Type: BLOOD SPECIMENOrdering Facility: [facility] Address: [address] [address] Performed By: #### 5 7021-8 ####[facility] LABORATORYCLIA [id number] [address] OF [facility] Hematocrit (Bld) [Volume fraction] 38.2 % Normal 36.0-46.0 [facility] Comment on above: Order Comment: Speci men Type: BLOOD SPECIMENOrdering Facility: [facility] Address: [address] [place] [address] Performed By: #### 5 7021-8 ####[facility] LABORATORYCLIA [id number] [address] OF [place] Hemoglobin (Bld) [Mass/Vol] 13.5 g/dL Normal 11.5-15.5 [facility] Comment on above: Order Comment: Speci men Type: BLOOD SPECIMENOrdering Facility: [facility] Address: [address] [place] [address] Performed By: #### 5 7021-8 ####[facility] LABORATORYCLIA [id number] [address] OF [place] Immature granulocytes (Bld) [#/Vol] 0.04 10*3/uL Normal <0.10 [facility] Comment on above: Order Comment: Speci men Type: BLOOD SPECIMENOrdering Facility: [facility] Address: [address] [place] [address] Performed By: #### 5 7021-8 ####[facility] LABORATORYCLIA [id number] [address] OF [place] Immature granulocytes/100 WBC (Bld) 0.5 % Normal [facility] Comment on above: Order Comment: Speci men Type: BLOOD SPECIMENOrdering Facility: [facility] Address: [address] [place] [address] Performed By: #### 5 7021-8 ####[facility] LABORATORYCLIA [id number] [address] [place] Lymphocytes (Bld) [#/Vol] 1.53 10*3/uL Normal 1.00-4.00 [facility] Comment on above: Order Comment: Speci men Type: BLOOD SPECIMENOrdering Facility: [facility] Address: [address] [place] [address] Performed By: #### 5 7021-8 ####[facility]ORATORYCLIA [id number] [address] Lymphocytes/100 WBC (Bld) 18.8 % Normal [facility] Comment on above: Order Comment: Speci men Type: BLOOD SPECIMENOrdering Facility: [facility] Address: [address] [place] [address] Performed By: #### 5 7021-8 ####[facility] LABORATORYCLIA [id number] [address] STATES OF [facility] MCH (RBC) [Entitic mass] 31.6 pg Normal 26.0-34.0 [facility] Comment on above: Order Comment: Speci men Type: BLOOD SPECIMENOrdering Facility: [facility] Address: [address] [place] [address] Performed By: #### 5 7021-8 ####[facility] LABORATORYCLIA [id number] [address] STATES [facility] MCHC (RBC) [Mass/Vol] 35.3 g/dL Normal 30.5-36.0 [facility] Comment on above: Order Comment: Speci men Type: BLOOD SPECIMENOrdering Facility: [facility] Address: [address] [place] [address] Performed By: #### 5 7021-8 ####[facility]ORATORYCLIA [id number] [address] [place] MCV (RBC) [Entitic vol] 89.5 fL Normal 80.0-100.0 [facility] Comment on above: Order Comment: Speci men Type: BLOOD SPECIMENOrdering Facility: [facility] Address: [address] [place] [address] Performed By: #### 5 7021-8 ####[facility]ORATORYCLIA [id number] [address] [place] Monocytes (Bld) [#/Vol] 0.51 10*3/uL Normal <0.87 [facility] Comment on above: Order Comment: Speci men Type: BLOOD SPECIMENOrdering Facility: [facility] Address: [address] [address] Performed By: #### 5 7021-8 ####[facility] LABORATORYCLIA [id number] [address] Monocytes/100 WBC (Bld) 6.3 % Normal [facility] Comment on above: Order Comment: Speci men Type: BLOOD SPECIMENOrdering Facility: [facility] Address: [address] [place] [address] Performed By: #### 5 7021-8 ####[facility] LABORATORYCLIA [id number] [address] [place] Neutrophils (Bld) [#/Vol] 6.06 10*3/uL Normal 1.45-7.50 [facility] Comment on above: Order Comment: Speci men Type: BLOOD SPECIMENOrdering Facility: [facility] Address: [address] [place] [address] Performed By: #### 5 7021-8 ####[facility]ATORYCLIA [id number] [address] Neutrophils/100 WBC (Bld) 74.2 % Normal [facility] Comment on above: Order Comment: Speci men Type: BLOOD SPECIMENOrdering Facility: [facility] Address: [address] [place] [address] Performed By: #### 5 7021-8 ####[facility]ORYCLIA [id number] [address] [place] Nucleated RBC (Bld) [#/Vol] 10*3/uL Normal <0.01 [facility] Comment on above: Order Comment: Speci men Type: BLOOD SPECIMENOrdering Facility: [facility] Address: [address] [place], [place] [address] Performed By: #### 5 7021-8 ####[facility]ORATORYCLIA [id number] [address] [place] Nucleated RBC/100 WBC (Bld) [Ratio] 0.0 /100 WBC Normal [facility] Comment on above: Order Comment: Speci men Type: BLOOD SPECIMENOrdering Facility: [facility] Address: [address] [place] [address] Performed By: #### 5 7021-8 ####[facility]ORATORYCLIA [id number] [address] [place] Platelet mean volume (Bld) [Entitic vol] 10.2 fL Normal 9.0-12.7 [facility] Comment on above: Order Comment: Speci men Type: BLOOD SPECIMENOrdering Facility: [facility] Address: [address] [place] [address] Performed By: #### 5 7021-8 ####[facility] LABORATORYCLIA [id number] [address] [place] Platelets (Bld) [#/Vol] 191 10*3/uL Normal 150-400 [facility] Comment on above: Order Comment: Speci men Type: BLOOD SPECIMENOrdering Facility: [facility] Address: [address] [place] [address] Performed By: #### 5 7021-8 ####[facility]ORATORYCLIA [id number] [place] [address] [place] RBC (Bld) [#/Vol] 4.27 10*6/uL Normal 3.90-5.20 [facility] Comment on above: Order Comment: Speci men Type: BLOOD SPECIMENOrdering Facility: [facility] Address: [address] [place] [address] Performed By: #### 5 7021-8 ####[facility]ORATORYCLIA [id number] [address] [place] WBC (Bld) [#/Vol] 8.16 10*3/uL Normal 3.70-11.00 [facility] Comment on above: Order Comment: Speci men Type: BLOOD SPECIMENOrdering Facility: [facility] Address: [address] [place] [place] [address] Performed By: #### 5 7021-8 ####[facility]ORATORYCLIA [id number] [place] [address] [place] ED Triage Noteon 10-28-2022 ED Triage Note HNO ID: [id number] Author: Dax Stevenson APRN.CNP Service: Emergency Medicine Author Type: Nurse Practitioner Type: ED Triage Notes Filed: 10/28/2022 9:15 PM Note Text: ED INTAKE NOTE Patient Name: Luz Oliveira Service Date: 10/28/22 BRIEF HPI: 22-year-old comes in with complaints of nausea vomiting and dizziness. She is 6 weeks denies any vaginal bleeding vaginal discharge. No chest pain states that she has been having intermittent fast heart rate. BRIEF EXAM: Awake and Alert tachycardia CTAB Abd soft/NT/ND; no rebound/guarding GALLARDO INTAKE WORKUP: Bloodwork: CBC CMP EKG Urinalysis SIGNATURE: Dax Stevenson APRN.DBA DEVELOPER Normal [facility] Magnesium SerPl-mCncon 10-28 Magnesium [Mass/Vol] 1.8 mg/dL Normal 1.7-2.3 [facility] Comment on above: Order Comment: Speci men Type: BLOOD SPECIMENOrdering Facility: [facility] Address: [address] [facility] [address] [place] [address] Performed By: #### 2 4321-2, 92621-7 ####[facility]ORATORYCLIA [id number] [address] [place] URINE OB DIP B/Oon 3 Glucose Ql (U) Negative Neg mg/dL [facility] Protein.monoclonal (U) [Mass/Vol] TRACE Abnormal Neg mg/dL [facility] CNCOon 08-21-2022 CNCO Letter Text [facility] Bacteria Ur Culton 2 Bacteria identified Cx Nom (U) ORGANISM ID: 1 50,000-<100,000 CFU/ml Normal urogenital den Normal [facility] Comment on above: Performed By: #### 7 3752-8, 94325-8, 49300-9 #### [facility] CLIA [id number] [facility] [address] [place] C. trachomatis+N. gonorrhoea e DNA CHICHO+probe Ql (Unsp spec)on 08-19-2022 C. trachomatis DNA CHICHO+probe Ql (Unsp spec) Negative Normal Negative for Chlamydia trachomatis by amplificaton [facility] Comment on above: Order Comment: Speci men Type: SWAB Ordering Facility: [facility] Address: [address] [place] [address] Performed By: #### 3 6902-5 #### [facility] CLIA [id number] [address] [place] [address] [place] N. gonorrhoeae DNA CHICHO+probe Ql (Unsp spec) Negative Normal Negative for Neisseria gonorrhoeae by amplification [facility] Comment on above: Order Comment: Speci men Type: SWAB Ordering Facility: [facility] Address: [address] [address] Performed By: #### 3 6902-5 #### [facility] CLIA [id number] [address] [place] [address] [place] CBC panel Auto (Bld)on 08-19 Erythrocyte distribution width (RBC) [Ratio] 12.4 % Normal 11.5-15.0 [facility] Comment on above: Order Comment: Speci men Type: BLOOD SPECIMEN Ordering Facility: [facility] Address: [address] [address] Performed By: #### 7 3752-8, 71703-1, 60136-6 #### [facility] CLIA [id number] [address] [place] [address] [place] Hematocrit (Bld) [Volume fraction] 40.5 % Normal 36.0-46.0 [facility] Comment on above: Order Comment: Speci men Type: BLOOD SPECIMEN Ordering Facility: [facility] Address: [address] Performed By: #### 7 3752-8, 68806-9, 50839-3 #### [facility] CLIA [id number] [address] [place] [address] [place] Hemoglobin (Bld) [Mass/Vol] 13.6 g/dL Normal 11.5-15.5 [facility] Comment on above: Order Comment: Speci men Type: BLOOD SPECIMEN Ordering Facility: [facility] Address: [address] Performed By: #### 7 3752-8, 63877-2, 74831-9 #### [facility] CLIA [id number] [address] [place] [address] [place] MCH (RBC) [Entitic mass] 30.8 pg Normal 26.0-34.0 [facility] Comment on above: Order Comment: Speci men Type: BLOOD SPECIMEN Ordering Facility: [facility] Address: [address] [address] Performed By: #### 7 3752-8, 11665-4, 42000-7 #### [facility] CLIA [id number] [address] [place] [address] [place] MCHC (RBC) [Mass/Vol] 33.6 g/dL Normal 30.5-36.[address] [facility] Comment on above: Order Comment: Speci men Type: BLOOD SPECIMEN Ordering Facility: [facility] Address: [address] Performed By: #### 7 3752-8, 69524-9, 79910-3 #### [facility] CLIA [id number] [address] [place] [address] [place] MCV (RBC) [Entitic vol] 91.8 fL Normal 80.0-100.0 [facility] Comment on above: Order Comment: Speci men Type: BLOOD SPECIMEN Ordering Facility: [facility] Address: [address] Performed By: #### 7 3752-8, 17683-6, 55526-7 #### [facility] CLIA [id number] [address] [place] [address] [place] Nucleated RBC (Bld) [#/Vol] 10*3/uL Normal <0.01 [facility] Comment on above: Order Comment: Speci men Type: BLOOD SPECIMEN Ordering Facility: [facility] Address: [address] Performed By: #### 7 3752-8, 41233-0, 02219-1 #### [facility] CLIA [id number] [address] [place] [address] [place] Platelet mean volume (Bld) [Entitic vol] 10.5 fL Normal 9.0-12.7 [facility] Comment on above: Order Comment: Speci men Type: BLOOD SPECIMEN Ordering Facility: [facility] Address: [address] Performed By: #### 7 3752-8, 58925-8, 58205-0 #### [facility] CLIA [id number] [address] [place] [address] [place] Platelets (Bld) [#/Vol] 247 10*3/uL Normal 150-400 [facility] Comment on above: Order Comment: Speci men Type: BLOOD SPECIMEN Ordering Facility: [facility] Address: [address] Performed By: #### 7 3752-8, 10809-0, 24323-1 #### [facility] CLIA [id number] [address] [id number] [place] RBC (Bld) [#/Vol] 4.41 10*6/uL Normal 3.90-5.20 [facility] Comment on above: Order Comment: Speci men Type: BLOOD SPECIMEN Ordering Facility: [facility] Address: [address] [place] [address] Performed By: #### 7 3752-8, 12140-5, 78928-4 #### [facility] CLIA [id number] [address] [place] [address] OF [facility] WBC (Bld) [#/Vol] 7.20 10*3/uL Normal 3.70-11.00 [facility] Comment on above: Order Comment: Speci men Type: BLOOD SPECIMEN Ordering Facility: [facility] Address: [address] [place] [address] Performed By: #### 7 3752-8, 75221-6, 96364-9 #### [facility] CLIA [id number] [address] [place] [address] STATES OF [facility] Erythrocyte distribution width (RBC) [Ratio] 12.4 % 11.5 - 15.0 % [facility] Hematocrit (Bld) [Volume fraction] 40.5 % 36.0 - 46.0 % [facility] Hemoglobin (Bld) [Mass/Vol] 13.6 g/dL 11.5 - 15.5 g/dL [facility] MCH (RBC) [Entitic mass] 30.8 pg 26.0 - 34.0 pg [facility] MCHC (RBC) [Mass/Vol] 33.6 g/dL 30.5 - 36.0 g/dL [facility] MCV (RBC) [Entitic vol] 91.8 fL 80.0 - 100.0 fL [facility] Nucleated RBC (Bld) [#/Vol] <0.01 k/uL [facility] Platelet mean volume (Bld) [Entitic vol] 10.5 fL 9.0 - 12.7 fL [facility] Platelets (Bld) [#/Vol] 247 10*3/uL 150 - 400 k/uL [facility] RBC (Bld) [#/Vol] 4.41 10*6/uL 3.90 - 5.2 0 m/uL [facility] WBC (Bld) [#/Vol] 7.20 10*3/uL 3.70 - 11. 00 k/uL [facility] HBV surface Ab IA Ql (S)on 1 10-19-2021 HBV surface Ag Ql (S) Negative Normal Negative [facility] Comment on above: Order Comment: Speci men Type: BLOOD SPECIMEN Ordering Facility: [facility] Address: [address] [place] [address] Performed By: #### 7 3752-8, 55460-9, 63272-1 #### [facility] CLIA [id number] [address] [place] [address] [place] HCV Ab Ser Qlon 08-19-2022 HCV Ab Ql (S) Negative Normal Negative [facility] Comment on above: Order Comment: Speci men Type: BLOOD SPECIMEN Ordering Facility: [facility] Address: [address] [place] [address] Result Comment: The result suggests no evidence of active infection with Hepatitis C virus. Should recent infection be suspected, repeat testing may be considered 4-6 weeks after this draw. Performed By: #### 7 3752-8, 03873-9, 17134-6 #### [facility] CLIA [id number] [address] [place] [address] [facility] [place] HIV 1+2 Ab IA Qlon 2 HIV 1 and 2 Ab IA.rapid Nom [facility] Comment on above: Order Comment: Speci men Type: BLOOD SPECIMEN Ordering Facility: [facility] Address: [address] [place] [address] Result Comment: Test not indicated. Performed By: #### 7 3752-8, 42365-6, 68338-6 #### [facility] CLIA [id number] [address] [place] [address] [place] HIV 1+2 Ab+HIV1 p24 Ag IA Ql Non-Reactive Normal Nonreactive [facility] Comment on above: Order Comment: Speci men Type: BLOOD SPECIMEN Ordering Facility: [facility] Address: [address] [place] [address] Performed By: #### 7 3752-8, 05237-5, 89638-6 #### [facility] CLIA [id number] [address] [place] [address] [place] HIVINT Normal [facility] Comment on above: Order Comment: Speci men Type: BLOOD SPECIMEN Ordering Facility: [facility] Address: [address] [place] [address] Result Comment: No e vidence of HIV-1 or HIV-2 infection. Should recent infection be suspected, repeat testing may be considered 2-3 weeks after this draw. [place] Rev. Code 3701.243(E): This information has been disclosed to you from confidential records protected from disclosure by state law. ???You shall make no further disclosure of this information without the specific, written, and informed release of the individual to whom it pertains or as otherwise permitted by state law. A general authorization for the release of medical or other information is not sufficient for the purpose of the release of HIV test results or diagnoses. Performed By: #### 7 3752-8, 13953-2, 97564-1 #### [facility] CLIA [id number] [address] [place] [address] [place] No Panel Informationon 08-19 [facility] PAP FLUID CERVICAL SCREENING on 08-19-2022 CASE REPORT [facility] Comment on above: Order Comment: Speci men Type: FLUID SPECIMEN Ordering Facility: [facility] Address: [address] [place] [address] Result Comment: Gyne cologic Cytology Report Case: [id number] Authorizing Provider: Braulio Hollingsworth MD Collected: 08/19/2022 02:46 PM Ordering Location: Obstetrics/Gynecology Received: 08/20/2022 12:38 PM First Screen: Shelby Umaña, CT, ASCP Rescreen: Wandy Fraser, CT, ASCP Specimen: Pap, Single Resource Boss, Screening, CERVICAL SCREENING FLUID Performed By: #### L [id number] #### [facility] CLIA [id number] [address] [place] [address] [place] CLINICAL HISTORY ABNORMAL PAP[LGSIL i n 2020 in [place] [facility] Comment on above: Order Comment: Speci men Type: FLUID SPECIMEN Ordering Facility: [facility] Address: [address] [place], [place] [address] Performed By: #### L [id number] #### [facility] CLIA [id number] [address] [place] [address] [place] CYTOLOGY INTERPRETATION PAP [facility] Comment on above: Order Comment: Speci men Type: FLUID SPECIMEN Ordering Facility: [facility] Address: [address] [place] [address] Result Comment: Nega tive for Intraepithelial lesion or malignancy. Performed By: #### L [id number] #### [facility] CLIA [id number] [address] [place] [address] OF [facility] FINAL DIAGNOSIS [facility] Comment on above: Order Comment: Speci men Type: FLUID SPECIMEN Ordering Facility: [facility] Address: [address] [place], [place] [address] Result Comment: A - CERVICAL SCREENING FLUID Satisfactory for interpretation, Excess blood Negative for Intraepithelial lesion or malignancy. Performed By: #### L [id number] #### [facility] CLIA [id number] [address] [place] [address] [place] FINAL PERFORMING LAB Normal [facility] Comment on above: Order Comment: Speci men Type: FLUID SPECIMEN Ordering Facility: [facility] Address: [address] [place], [place] [address] Result Comment: Tech nical component, risk reduction counselor screening performed at [facility], [facility] [place] [id number] CLIA# [id number] Diagnostic interpretation performed at [facility], [address] [place] [address] CLIA# [id number] Medical Liaison: Adam Farah M.D. Performed By: #### L [id number] #### [facility] CLIA [id number] [address] [place] [address] [place] GROSS DESCRIPTION Normal [facility] Comment on above: Order Comment: Speci men Type: FLUID SPECIMEN Ordering Facility: [facility] Address: [address] [address] Result Comment: A. C ERVICAL SCREENING FLUID Glacial Acetic Acid added. Performed By: #### L [id number] #### [facility] CLIA [id number] [address] [place] [address] [place] HPV REQUESTED? Yes, Reflex HPV for ASCUS [facility] Comment on above: Order Comment: Speci men Type: FLUID SPECIMEN Ordering Facility: [facility] Address: [address] [place] [place] [address] Performed By: #### L [id number] #### [facility] CLIA [id number] [address] [place] [address] [place] LMP 06/21/2022() Normal [facility] Comment on above: Order Comment: Speci men Type: FLUID SPECIMEN Ordering Facility: [facility] Address: [address] [address] Performed By: #### L [id number] #### [facility] CLIA [id number] [address] [place] [address] [place] PAP DISCLAIMER COMMENT The Pap Smear is a screening test for cervical cancer. False negative results occur with all screening tests, emphasizing the need for rescreening at recommended intervals, and clinical correlation. [facility] Comment on above: Order Comment: Speci men Type: FLUID SPECIMEN Ordering Facility: [facility] Address: [address] [address] Performed By: #### L [id number] #### [facility] CLIA [id number] [address] [place] [address] [place] PAP VOTING MACHINE MECHANIC COMMENT This specimen has been analyzed by the ThinPrep Imaging System, an automated imaging and review system, which assists the laboratory in evaluating cells on ThinPrep Pap tests. Following automated imaging, selected francis from every slide are reviewed by a risk reduction counselor. [facility] Comment on above: Order Comment: Speci men Type: FLUID SPECIMEN Ordering Facility: [facility] Address: [address] [place] [address] Performed By: #### L [id number] #### [facility] CLIA [id number] [address] [place] [address] OF [place] RUBELLA IGG ABon 08-19-2022 RUBELLA IGG AB, QUAL Positive Normal Positive [facility] Comment on above: Order Comment: Eloise lopez Type: BLOOD SPECIMEN Ordering Facility: [facility] Address: [address] [place] [address] Result Comment: The result suggests recent or past exposure to Rubella virus or history of Rubella vaccination. Positive result may also be seen due to presence of passively-transferred antibodies. Please correlate with patient's history. Performed By: #### 7 3752-8, 38566-4, 76295-9 #### [facility] CLIA [id number] [address] [place] Reagin and Treponema pallidu m IgG and IgM [Interp]on 08-19-2022 SYPHILIS INTERPRETATION Cannot exclude recent Treponemal infection if specimen collected within 7-10 days after appearance of suspect lesions or 2-3 weeks after an exposure. Clinical correlation is required. [facility] Comment on above: Order Comment: Speci men Type: BLOOD SPECIMEN Ordering Facility: [facility] Address: [address] [place], [place] [address] Performed By: #### 7 3752-8, 97894-3, 97125-8 #### [facility] CLIA [id number] [address] [place] [address] [place] T. pallidum IgG+IgM IA Ql (S) Non-Reactive [facility] Comment on above: Order Comment: Speci men Type: BLOOD SPECIMEN Ordering Facility: [facility] Address: [address] [place] [address] Performed By: #### 7 3752-8, 96906-4, 36353-0 #### [facility] CLIA [id number] [address] [place] [address] [place] TSH BLDon 08-19-2022 TSH Qn 1.190 m[IU]/L 0.270 - 4.200 mIU/L [facility] TSH SerPl-aCncon 08-19-2022 TSH Qn 1.190 m[IU]/L Normal 0.270-4.200 [facility] Comment on above: Order Comment: Speci men Type: BLOOD SPECIMEN Ordering Facility: [facility] Address: [address] [place] [address] Result Comment: If t he patient is , TSH reference range varies by gestational period: First Trimester (weeks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 Phone: Chloride [Moles/Vol] 106 mmol/L 98-107 [facility] Work [facility]: Eosinophils/100 WBC (Bld) 0.2 % 0-5 [facility] Work Phone: Glucose [Mass/Vol] 98 mg/dL 74-106 [facility] Work Phone: Neutrophils (Bld) [#/Vol] 6.1 10*3/uL 2.0-7.7 [facility] Work Phone: Neutrophils/100 WBC (Bld) 72.2 % 47-70 [facility] Work Phone: Potassium [Moles/Vol] 3.9 mmol/L 3.5-5.1 [facility] Work Phone: Sodium [Moles/Vol] 142 mmol/L 136-145 [facility] Work Phone: WBC (Bld) [#/Vol] 8.5 10*3/uL 4.4-11.0 [facility] Work Phone: Beta hCG serum qualon 2021 Beta HCG ( test) Ql Negative [facility] Work Phone: Bilirubin Test strip Ql (U)o n 06-29-2022 Bilirubin Ql (U) Negative Negative [facility] Work Phone: Blood erythrocytes count (nu mber/volume)on 06-29-2022 RBC (Bld) [#/Vol] 4.44 10*6/uL 4.2-5.4 [facility] Work Phone: Blood hemoglobin measurement (mass/volume)on 06-29-2022 Hemoglobin (Bld) [Mass/Vol] 13.7 g/dL 12.0-15.0 [facility] Work Phone: Blood lymphocytes/100 leukoc yteson 06-29-2022 Lymphocytes/100 WBC (Bld) 21.2 % 19-41 [facility] Work Phone: Blood monocytes/100 leukocyt eson 06-29-2022 Monocytes/100 WBC (Bld) 5.8 % 0-10 [facility] Work Phone: [phone] Blood platelet mean volumeon 06-29-2022 Platelet mean volume (Bld) [Entitic vol] 9.9 fL 6.2-12.0 [facility] Work Phone: Determination of erythrocyte mean corpuscular volume (MCV)on 06-29-2022 MCV (RBC) [Entitic vol] 90.5 fL 81-99 [facility] Work Phone: Hematocrit Auto (Bld) [Volum e fraction]on 06-29-2022 Hematocrit (Bld) [Volume fraction] 40.2 % 37-47 [facility] Work Phone: [phone] Ketones Test strip Ql (U)on 06-29-2022 Ketones Ql (U) Negative Negative [facility] Work Phone: Laboratory - Chemistry and C hemistry - challengeon 06-29-2022 CO2 [Moles/Vol] 28.0 mmol/L 21.0-32.0 [facility] Work Phone: Urea nitrogen/Creatinine [Mass ratio] 23.1 mg/mg 10-20 [facility] Work Phone: [phone] Laboratory - Hematology and Cell countson 06-29-2022 Erythrocyte distribution width (RBC) [Entitic vol] 41.0 fL 35.1-43.9 [facility] Work Phone: [phone] Erythrocyte distribution width (RBC) [Ratio] 12.7 % 11.6-14.6 [facility] Work Phone: [phone] Immature granulocytes/100 WBC (Bld) 0.500 % 0.0-0.9 [facility] Work Phone: [phone] Comment on above: IG% - Immature Granu locytes (promyelocytes, myelocytes and metamyelocytes) > 1% indicates that a LEFT SHIFT is Present. MCH (RBC) [Entitic mass] 30.9 pg 27.0-32.0 [facility] Work Phone: Nucleated RBC/100 WBC (Bld) [Ratio] 0 % 0-5 [facility] Work Phone: MCHC Auto (RBC) [Mass/Vol]on 06-29-2022 MCHC (RBC) [Mass/Vol] 34.1 g/dL 32-36 [facility] Work Phone: Mucus LM Ql (Urine sed)on Mucus Ql (Urine sed) 0 SEEN /hpf [facility] Work Phone: Nitrite Test strip Ql (U)on 06-29-2022 Nitrite Ql (U) Negative Negative [facility] Work Phone: No Panel Informationon 06-29 Estimated Creatinine Clearance Calc 89.98 ml/min [facility] Work Phone: Estimated GFR (MDRD) Amer 126 mL/min >60 [facility] Work Phone: Comment on above: GFR Calc Estimated GFR (MDRD) Non-Af Amer 104 mL/min >60 [facility] Work Phone: Comment on above: Non- GFR Calc Platelets bldon 06-29-2022 Platelets (Bld) [#/Vol] 287 10*3/uL 150-450 [facility] Work Phone: Protein Test strip Ql (U)on 06-29-2022 Protein Ql (U) 30 mg/dl Negative [facility] Work Phone: [phone] Serum or plasma calcium sabino urement (mass/volume)on 06-29-2022 Calcium [Mass/Vol] 9.7 mg/dL 8.5-10.1 [facility] Work Phone: [phone] Serum or plasma creatinine m easurement (mass/volume)on 06-29-2022 Creatinine [Mass/Vol] 0.74 mg/dL 0.55-1.02 [facility] Work Phone: Comment on above: The validity of the calculated GFR & GFRAA in patients over 70 years has not been determined. Clinical correlation is essential. Serum or plasma urea nitroge n measurement (mass/volume)on 06-29-2022 Urea nitrogen [Mass/Vol] 17 mg/dL 7-18 [facility] Work Phone: Squamous epithelial cells de tection in urine sediment by light microscopyon 06-29-2022 Epithelial cells.squamous LM Ql (Urine sed) 0-5 SEEN /hpf 5-10 [facility] Work Phone: Thin prep Papanicolaou smear with manual screeningon 06-29-2022 Thin prep Papanicolaou smear with manual screening 8 5-15 [facility] Work Phone: Urine blood detectionon 06-11 RBC Ql (U) 25 /ul Negative [facility] Work Phone: RBC Ql (U) 0-5 SEEN /hpf 0-5 [facility] Work Phone: Urine clarityon 06-29-2022 Clarity (U) Clear Clear [facility] Work Phone: Urine color determinationon 06-29-2022 Color (U) Yellow Yellow [facility] Work Phone: Urine glucose detectionon Glucose Ql (U) Normal mg/dl Normal [facility] Work Phone: Urine leukocyte esterase det ection by dipstickon 06-29-2022 Leukocyte esterase Test strip Ql (U) 25 /ul Negative [facility] Work Phone: Urine pHon 06-29-2022 pH (U) 6.5 [pH] 5.0 - 8.0 [facility] Work Phone: Urine sediment bacteria coun t by microscopy (number/high power field)on 06-29-2022 Bacteria LM.HPF (Urine sed) [#/Area] 0 /[HPF] None Seen [facility] Work Phone: Urine specific gravity measu rementon 06-29-2022 Specific gravity (U) [Rel density] 1.010 1.002-1.030 [facility] Work Phone: Urobilinogen Auto test strip Ql (U)on 06-29-2022 Urobilinogen Ql (U) Normal mg/dl Normal [facility] Work Phone: CBC W Auto Differential pane l (Bld)on 05-31-2022 Basophils (Bld) [#/Vol] 10*3/uL Normal <0.11 [facility] Comment on above: Order Comment: Speci men Type: BLOOD SPECIMENOrdering Facility: [facility] Address: [address] [address] Performed By: #### 5 7021-8 ####[facility] LABORATORYCLIA [id number] [address] [place] Basophils/100 WBC (Bld) 0.0 % Normal [facility] Comment on above: Order Comment: Speci men Type: BLOOD SPECIMENOrdering Facility: [facility] Address: [address] [place] [address] Performed By: #### 5 7021-8 ####[facility] LABORATORYCLIA [id number] [address] [place] Differential cell count method Nom (Bld) Auto Normal [facility] Comment on above: Order Comment: Speci men Type: BLOOD SPECIMENOrdering Facility: [facility] Address: [address] [place] [address] Performed By: #### 5 7021-8 ####[facility] LABORATORYCLIA [id number] [place] [address] [place] Eosinophils (Bld) [#/Vol] 10*3/uL Normal <0.46 [facility] Comment on above: Order Comment: Speci men Type: BLOOD SPECIMENOrdering Facility: [facility] Address: [address] [place] [address] Performed By: #### 5 7021-8 ####[facility] LABORATORYCLIA [id number] [place] [address] [place] Eosinophils/100 WBC (Bld) 0.2 % Normal [facility] Comment on above: Order Comment: Speci men Type: BLOOD SPECIMENOrdering Facility: [facility] Address: [address] [place] [address] Performed By: #### 5 7021-8 ####[facility] LABORATORYCLIA [id number] [address] Erythrocyte distribution width (RBC) [Ratio] 12.5 % Normal 11.5-15.0 [facility] Comment on above: Order Comment: Speci men Type: BLOOD SPECIMENOrdering Facility: [facility] Address: [address] [place] [address] Performed By: #### 5 7021-8 ####[facility] LABORATORYCLIA [id number] [address] Hematocrit (Bld) [Volume fraction] 38.8 % Normal 36.0-46.0 [facility] Comment on above: Order Comment: Speci men Type: BLOOD SPECIMENOrdering Facility: [facility] Address: [address] [place] [address] Performed By: #### 5 7021-8 ####[facility] LABORATORYCLIA [id number] [address] Hemoglobin (Bld) [Mass/Vol] 13.4 g/dL Normal 11.5-15.5 [facility] Comment on above: Order Comment: Speci men Type: BLOOD SPECIMENOrdering Facility: [facility] Address: [address] [place] [address] Performed By: #### 5 7021-8 ####[facility] LABORATORYCLIA [id number] [address] IMMATURE GRAN % 0.2 % Normal [facility] Comment on above: Order Comment: Speci men Type: BLOOD SPECIMENOrdering Facility: [facility] Address: [address] [place] [address] Performed By: #### 5 7021-8 ####[facility] LABORATORYCLIA [id number] [place] [address] IMMATURE GRAN ABS <0.03 Normal <0.10 [facility] Comment on above: Order Comment: Speci men Type: BLOOD SPECIMENOrdering Facility: [facility] Address: [address] [place] [address] Performed By: #### 5 7021-8 ####[facility] LABORATORYCLIA [id number] [address] OF [facility] Lymphocytes (Bld) [#/Vol] 1.08 10*3/uL Normal 1.00-4.00 [facility] Comment on above: Order Comment: Speci men Type: BLOOD SPECIMENOrdering Facility: [facility] Address: [address] [place] [address] Performed By: #### 5 7021-8 ####[facility] LABORATORYCLIA [id number] [address] Lymphocytes/100 WBC (Bld) 26.3 % Normal [facility] Comment on above: Order Comment: Speci men Type: BLOOD SPECIMENOrdering Facility: [facility] Address: [address] [place] [address] Performed By: #### 5 7021-8 ####[facility] LABORATORYCLIA [id number] [address] MCH (RBC) [Entitic mass] 30.2 pg Normal 26.0-34.0 [facility] Comment on above: Order Comment: Speci men Type: BLOOD SPECIMENOrdering Facility: [facility] Address: [address] [place] [address] Performed By: #### 5 7021-8 ####[facility] LABORATORYCLIA [id number] [address] MCHC (RBC) [Mass/Vol] 34.5 g/dL Normal 30.5-36.0 [facility] Comment on above: Order Comment: Speci men Type: BLOOD SPECIMENOrdering Facility: [facility] Address: [address] [place] [address] Performed By: #### 5 7021-8 ####[facility] LABORATORYCLIA [id number] [address] [place] MCV (RBC) [Entitic vol] 87.6 fL Normal 80.0-100.0 [facility] Comment on above: Order Comment: Speci men Type: BLOOD SPECIMENOrdering Facility: [facility] Address: [address] [place] [address] Performed By: #### 5 7021-8 ####[facility]ORATORYCLIA [id number] [address] [place] Monocytes (Bld) [#/Vol] 0.34 10*3/uL Normal <0.87 [facility] Comment on above: Order Comment: Speci men Type: BLOOD SPECIMENOrdering Facility: [facility] Address: [address] [place] [address] Performed By: #### 5 7021-8 ####[facility] LABORATORYCLIA [id number] [address] Monocytes/100 WBC (Bld) 8.3 % Normal [facility] Comment on above: Order Comment: Speci men Type: BLOOD SPECIMENOrdering Facility: [facility] Address: [address] [place] [address] Performed By: #### 5 7021-8 ####[facility] LABORATORYCLIA [id number] [address] [place] Neutrophils (Bld) [#/Vol] 2.66 10*3/uL Normal 1.45-7.50 [facility] Comment on above: Order Comment: Speci men Type: BLOOD SPECIMENOrdering Facility: [facility] Address: [address] [place] [address] Performed By: #### 5 7021-8 ####[facility] LABORATORYCLIA [id number] [address] [place] Neutrophils/100 WBC (Bld) 65.0 % Normal [facility] Comment on above: Order Comment: Speci men Type: BLOOD SPECIMENOrdering Facility: [facility] Address: [address] Performed By: #### 5 7021-8 ####[facility] LABORATORYCLIA [id number] [address] Nucleated RBC (Bld) [#/Vol] 10*3/uL Normal <0.01 [facility] Comment on above: Order Comment: Speci men Type: BLOOD SPECIMENOrdering Facility: [facility] Address: [address] Performed By: #### 5 7021-8 ####[facility] LABORATORYCLIA [id number] [address] Nucleated RBC/100 WBC (Bld) [Ratio] 0.0 /100 WBC Normal [facility] Comment on above: Order Comment: Speci men Type: BLOOD SPECIMENOrdering Facility: [facility] Address: [address] [place] [address] Performed By: #### 5 7021-8 ####[facility] LABORATORYCLIA [id number] [address] STATES [facility] Platelet mean volume (Bld) [Entitic vol] 9.7 fL Normal 9.0-12.7 [facility] Comment on above: Order Comment: Speci men Type: BLOOD SPECIMENOrdering Facility: [facility] Address: [address] Performed By: #### 5 7021-8 ####[facility] LABORATORYCLIA [id number] [address] Platelets (Bld) [#/Vol] 178 10*3/uL Normal 150-400 [facility] Comment on above: Order Comment: Speci men Type: BLOOD SPECIMENOrdering Facility: [facility] Address: [address] [place] [address] Performed By: #### 5 7021-8 ####[facility] LABORATORYCLIA [id number] [address] [place] RBC (Bld) [#/Vol] 4.43 10*6/uL Normal 3.90-5.20 [facility] Comment on above: Order Comment: Speci men Type: BLOOD SPECIMENOrdering Facility: [facility] Address: [address] [place] [address] Performed By: #### 5 7021-8 ####[facility] LABORATORYCLIA [id number] [address] OF [facility] WBC (Bld) [#/Vol] 4.10 10*3/uL Normal 3.70-11.00 [facility] Comment on above: Order Comment: Speci men Type: BLOOD SPECIMENOrdering Facility: [facility] Address: [address] [place] [address] Performed By: #### 5 7021-8 ####[facility] LABORATORYCLIA [id number] [address] Comprehensive metabolic 2000 panelon 05-31-2022 Albumin [Mass/Vol] 4.5 g/dL Normal 3.9-4.9 [facility] Comment on above: Order Comment: Speci men Type: BLOOD SPECIMENOrdering Facility: [facility] Address: [address] [place] [address] Performed By: #### 3 040-3, 34028-5, 26944-0 ####[facility] LABORATORYCLIA [id number] [address] STATES OF [facility] ALP [Catalytic activity/Vol] 60 U/L Normal 34-123 [facility] Comment on above: Order Comment: Speci men Type: BLOOD SPECIMENOrdering Facility: [facility] Address: [address] [place] [address] Performed By: #### 3 040-3, 00823-8, 47981-5 ####[facility] LABORATORYCLIA [id number] [address] OF [facility] ALT With P-5'-P [Catalytic activity/Vol] 55 U/L High 7-38 [facility] Comment on above: Order Comment: Speci men Type: BLOOD SPECIMENOrdering Facility: [facility] Address: [address] [place] [address] Performed By: #### 3 040-3, , ####[facility] LABORATORYCLIA [id number] [address] STATES OF [facility] Anion gap [Moles/Vol] 12 mmol/L Normal 9-18 [facility] Comment on above: Order Comment: Speci men Type: BLOOD SPECIMENOrdering Facility: [facility] Address: [address] [place] [address] Performed By: #### 3 040-3, , ####[facility] LABORATORYCLIA [id number] [place] [address] [place] AST With P-5'-P [Catalytic activity/Vol] 57 U/L High 13-35 [facility] Comment on above: Order Comment: Speci men Type: BLOOD SPECIMENOrdering Facility: [facility] Address: [address] [place] [address] Performed By: #### 3 040-3, , ####[facility] LABORATORYCLIA [id number] [place], [place] [address] [place] Bilirubin [Mass/Vol] 0.5 mg/dL Normal 0.2-1.3 [facility] Comment on above: Order Comment: Speci men Type: BLOOD SPECIMENOrdering Facility: [facility] Address: [address] [place] [address] Performed By: #### 3 040-3, 33805-6, ####[facility] LABORATORYCLIA [id number] [address] [place] Calcium [Mass/Vol] 8.9 mg/dL Normal 8.5-10.2 [facility] Comment on above: Order Comment: Speci men Type: BLOOD SPECIMENOrdering Facility: [facility] Address: [address] [place] [address] Performed By: #### 3 040-3, 25838-8, ####[facility] LABORATORYCLIA [id number] [place] [address] [place] Chloride [Moles/Vol] 102 mmol/L Normal 97-105 [facility] Comment on above: Order Comment: Speci men Type: BLOOD SPECIMENOrdering Facility: [facility] Address: [address] [place] [address] Performed By: #### 3 040-3, 01402-8, ####[facility] LABORATORYCLIA [id number] [place] [address] [place] CO2 [Moles/Vol] 25 mmol/L Normal 22-30 [facility] Comment on above: Order Comment: Speci men Type: BLOOD SPECIMENOrdering Facility: [facility] Address: [address] [place] [address] Performed By: #### 3 040-3, , ####[facility] LABORATORYCLIA [id number] [address] OF [facility] Creatinine [Mass/Vol] 0.74 mg/dL Normal 0.58-0.96 [facility] Comment on above: Order Comment: Speci men Type: BLOOD SPECIMENOrdering Facility: [facility] Address: [address] [place] [address] Performed By: #### 3 040-3, , ####[facility] LABORATORYCLIA [id number] [address] ESTIMATED GLOMERULAR FILTRATION RATE 117 mL/min/1.73m??? Normal >=60 [facility] Comment on above: Order Comment: Speci men Type: BLOOD SPECIMENOrdering Facility: [facility] Address: [address] [place] [address] Result Comment: Tierra mated Glomerular Filtration Rate (eGFR) is calculated using the 2020 CKD-EPI creatinine equation. This equation utilizes serum creatinine, sex, and age as parameters. The creatinine assay has traceable calibration to isotope dilution-mass spectrometry. Refer to KDIGO guidelines for clinical interpretation. In patients with unstable renal function, e.g. those with acute kidney injury, the eGFR may not accurately reflect actual GFR. Performed By: #### 3 040-3, , ####[facility]ORATORYCLIA [id number] [place] [address] [place] Glucose [Mass/Vol] 91 mg/dL Normal 74-99 [facility] Comment on above: Order Comment: Eloise lopez Type: BLOOD SPECIMENOrdering Facility: [facility] Address: [address] [place] [phone] Result Comment: The [place] Diabetes Association (ADA) provides guidance for cutoff values for fasting glucose and random glucose. The ADA defines fasting as no caloric intake for at least 8 hours. Fasting plasma glucose results between 100 to 125 mg/dL indicate increased risk for diabetes (prediabetes). Fasting plasma glucose results greater than or equal to 126 mg/dL meet the criteria for diagnosis of diabetes. In the absence of unequivocal hyperglycemia, results should be confirmed by repeat testing. In a patient with classic symptoms of hyperglycemia or hyperglycemic crisis, random plasma glucose results greater than or equal to 200 mg/dL meet the criteria for diagnosis of diabetes. Reference: Standards of Medical Care in Diabetes 2016, [place] [employer]. Diabetes Care. 2016.39(Suppl 1). Performed By: #### 3 040-3, , ####[facility] LABORATORYCLIA [id number] [place] [id number] [place] Potassium [Moles/Vol] 3.6 mmol/L Low 3.7-5.1 [facility] Comment on above: Order Comment: Eloise lopez Type: BLOOD SPECIMENOrdering Facility: [facility] Address: [address] [place] [address] Performed By: #### 3 040-3, , ####[facility]ATORYCLIA [id number] [place] [address] [place] Protein [Mass/Vol] 6.7 g/dL Normal 6.3-8.0 [facility] Comment on above: Order Comment: Speci men Type: BLOOD SPECIMENOrdering Facility: [facility] Address: [address] [place] [address] Performed By: #### 3 040-3, , ####[facility]ATORYCLIA [id number] [address] OF [facility] Sodium [Moles/Vol] 139 mmol/L Normal 136-144 [facility] Comment on above: Order Comment: Speci men Type: BLOOD SPECIMENOrdering Facility: [facility] Address: [address] [place] [address] Performed By: #### 3 040-3, 41478-5, ####[facility]ATORYCLIA [id number] [address] [place] Urea nitrogen [Mass/Vol] 7 mg/dL Normal 7-21 [facility] Comment on above: Order Comment: Speci men Type: BLOOD SPECIMENOrdering Facility: [facility] Address: [address] [place] [address] Performed By: #### 3 040-3, 17435-4, ####[facility]ORATORYCLIA [id number] [address] ED NOTEon 05-31-2022 ED NOTE HNO ID: [id number] Author: Agueda Meng RN Service: Emergency Medicine Author Type: Registered Nurse Type: ED Notes Filed: 05/31/2022 2:42 PM Note Text: Pt alert and oriented x 4, speaking in full sentences with unlabored breathing. Pt verbalizes understanding of discharge paperwork. Pt ambulated from department without difficulty. Normal [facility] ED NOTE HNO ID: [id number] Author: Agueda Meng RN Service: Emergency Medicine Author Type: Registered Nurse Type: ED Notes Filed: 05/31/2022 12:20 PM Note Text: Pt called this RN into the room. Pt now c/o increasing weakness and shakes. Pt's BP is now 89/58 and a POC BG 80. Pt has an even midline smile. Bilateral handgrasps even. Pt is A AND O x 4, speaking in full sentences with unlabored breathing. Pt has IV fluids infusing at this time. Requested Dr. Zhang Gonsalez to see patient. Is at bedside at this time. Normal [facility] ED NOTE HNO ID: [id number] Author: Agueda Meng RN Service: Emergency Medicine Author Type: Registered Nurse Type: ED Notes Filed: 05/31/2022 12:14 PM Note Text: POC BG 80 Normal [facility] ED NOTE HNO ID: [id number] Author: Agueda Meng RN Service: Emergency Medicine Author Type: Registered Nurse Type: ED Notes Filed: 05/31/2022 11:36 AM Note Text: Pt c/o weakness along with generalized illness symptoms. Pt placed on the bedside radiation monitor at this time. Normal [facility] ED NOTE HNO ID: [id number] Author: Danuta Staley RN Service: ? Author Type: Registered Nurse Type: ED Notes Filed: 05/31/2022 11:04 AM Note Text: Bed: 46-ED Expected date: Expected time: Means of arrival: Comments: triage Normal [facility] ED PROV NOTEon 05-31-2022 ED PROV NOTE HNO ID: [id number] Author: Hiwot Hudson MD Service: Emergency Medicine Author Type: Physician Type: ED Provider Notes Filed: 05/31/2022 3:48 PM Note Text: Attending Note I evaluated the patient and personally participated in the martin components. I personally saw and examined the patient. I reviewed the resident's note. I agree with the resident's assessment and plan unless otherwise noted. I was present for the martin portions of the procedure. HPI: 21 year old FEMALE past medical history of depression kidney stone migraines presents for nausea vomiting diarrhea for 48 hours. Patient says she had diarrhea and when she wiped she saw a small amount of blood. She denies vomiting any blood. She said she is unable to keep anything down. She reports headache. No neck pain. Reports body aches fatigue. She did not do a home COVID test and she has not been vaccinated against COVID. 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 Possible sick contacts no recent travel. Vitals BP 106/58 Pulse 73 Temp 36.8 ?C (98.2 ?F) (Oral) Resp 18 Ht 154.9 cm (5' 1) Wt 63.5 kg (140 lb) LMP 12/14/2021 (Approximate) SpO2 100% BMI 26.45 kg/m? Gen NAD Calm verbal Neuro NCAT PERRLA no focal neuro deficits GALLARDO CVS RRR Pulm CTAB Abd Soft NT ND +BS Ext no c/e Medical decision making: Well-appearing female talking on cell phone. She looks well. Brief episode of hypotension but is fluid responsive. She received Zofran and Tylenol. So far labs show normal glucose. Mildly elevated LFTs. Potassium 3.6. Patient will be swabbed for COVID. She does not meet criteria for admission. An EKG was obtained and is normal. She looks dehydrated. Likely viral process and without any specific findings or tenderness do not feel any imaging is needed at this time. Still awaiting for the patient's hCG and urinalysis. Hiwot Hudson MD 1:19 PM May 31, 2022 hCG negative. Urinalysis unremarkable except for ketones. Patient received a liter of fluids and her blood pressure improved and she felt improved. Recommend oral hydration. Return for worsening symptoms. Self quarantine as to potential for her having COVID. 3:48 PM Hiwot Hudson MD 05/31/22 1548 Normal [facility] ED PROV NOTE HNO ID: [id number] Author: Hiwot Hudson MD Service: Emergency Medicine Author Type: Physician Type: ED Provider Notes Filed: 06/01/2022 7:13 AM Note Text: ED Provider Note Patient Name: Luz Oliveira : 2000 SERVICE DATE: 05/31/22 History Patient presents with: Nausea AND Vomiting: Patient arrives to ED c/o nausea, vomiting, diarrhea, headache, dizziness, and generalized weakness for the last 48 hours. Patient reports blood in her stool. Patient AANDOx3 MAEx4. She is ambulatory in triage. This is a 21-year-old female with past medical history of depression who presents emergency department with concerns for nausea, vomiting, diarrhea. She states that her symptoms started approximately 24 hours ago. She denies new foods. She states that she is unsure whether she could have COVID or not. She has not been vaccinated for COVID. She states that she has a mild headache which feels similar to her headaches in the past. She denies weakness, numbness, tingling, blurred vision, double vision. Patient denies chest pain, shortness of breath. She states that she only has abdominal pain while she is vomiting and not at rest. She states that she is also had some mild dysuria but denies hematuria. She denies flank pain. Patient states that she did have 2 episodes of blood on the tissue paper when wiping after having diarrhea. No blood mixed in with stools. PAST MEDICAL HISTORY Diagnosis Date Cognitive disorder IEP per the [facility] Psychologist [facility] Kidney stone Migraine Urinary reflux UTI (urinary tract infection) PAST SURGICAL HISTORY Procedure Laterality Date ORAL SURGERY PROCEDURE FAMILY HISTORY Problem Relation Age of Onset Thyroid Mother Diabetes Mother other (endometriosis) Mother other (other) Father Diabetes Maternal Grandmother Breast Cancer Maternal Grandmother Thyroid Maternal Grandmother Diabetes Maternal Grandfather Cancer Paternal Grandfather other (Myocardial infarction [Other]) Paternal Grandfather age 57 Heart Other maternal and paternal side Social History Tobacco Use Smoking status: Never Smokeless tobacco: Never Tobacco comments: dad smokes outside Vaping Use Vaping Use: Never used Substance and Sexual Activity Alcohol use: Not Currently Drug use: Never Sexual activity: Yes Partners: Male ALLERGIES Allergen Reactions Celexa [Citalopram * Other: See Comments Suicidal thoughts Escitalopram Other: See Comments Review of Systems Constitutional: Negative for chills, fatigue and fever. HENT: Negative for congestion, rhinorrhea and sore throat. Respiratory: Negative for shortness of breath and wheezing. Cardiovascular: Negative for chest pain and palpitations. Gastrointestinal: Positive for diarrhea, nausea and vomiting. Negative for abdominal pain. Genitourinary: Negative for dysuria and hematuria. Musculoskeletal: Negative for arthralgias and back pain. Skin: Negative for rash. Neurological: Positive for headaches. Negative for dizziness, weakness, light-headedness and numbness. Physical Exam Vitals [05/31/22 1103] BP Pulse Temp Temp src Resp SpO2 Weight Height 121/81 90 36.8 ?C (98.2 ?F) Oral 18 97 % 63.5 kg (140 lb) 1.549 m (5' 1) Physical Exam Vitals reviewed. Constitutional: General: She is not in acute distress. Appearance: Normal appearance. She is well-developed. HENT: Head: Normocephalic and atraumatic. Mouth/Throat: Comments: Dry mucus membranes Eyes: General: Lids are normal. No scleral icterus. Extraocular Movements: Extraocular movements intact. Conjunctiva/sclera: Right eye: Right conjunctiva is not injected. Left eye: Left conjunctiva is not injected. Cardiovascular: Rate and Rhythm: Normal rate and regular rhythm. Heart sounds: No murmur heard. No friction rub. Pulmonary: Effort: Pulmonary effort is normal. Breath sounds: Normal breath sounds. No decreased breath sounds, wheezing, rhonchi or rales. Abdominal: General: Abdomen is flat. Bowel sounds are normal. There is no distension. Tenderness: There is no abdominal tenderness. There is no right CVA tenderness, left CVA tenderness, guarding or rebound. Musculoskeletal: Cervical back: Neck supple. Right lower leg: No tenderness. No edema. Left lower leg: No tenderness. No edema. Lymphadenopathy: Cervical: No cervical adenopathy. Skin: General: Skin is warm and dry. Findings: No rash (on exposed skin surfaces). Neurological: General: No focal deficit present. Mental Status: She is alert and oriented to person, place, and time. GCS: GCS eye subscore is 4. GCS verbal subscore is 5. GCS motor subscore is 6. Psychiatric: Speech: Speech normal. Thought Content: Thought content does not include homicidal or suicidal ideation. Diagnostic Testing ED Labs Ordered and Reviewed - No data to display Procedures ED Course (more content not included)... Normal [facility] EKGon 05-31-2022 Electrocardiogram Ventricular Rate : 7 1 BPM Atrial Rate : 71 BPM P-R Interval : 118 ms QRS Duration : 84 ms Q-T Interval : 448 ms QTC Calculation(Bazett) : 486 ms Calculated P [place] : 23 degrees Calculated R [place] : 58 degrees Calculated T [place] : 27 degrees NORMAL SINUS RHYTHM NONSPECIFIC T WAVE ABNORMALITY PROLONGED QT ABNORMAL ECG NO PREVIOUS ECGS AVAILABLE Confirmed by KAUSHIK GUADALUPE MD ([id number]) on 06/04/2022 3:38:07 AM NAME : LUZ OLIVEIRA PID : [id number] : 2000 Gender : Female Race : ORD : Procedure Date : May 31 2022 13:06:20 Edit Date : Jun 04 2022 03:38:08 Diagnosis: NORMAL SINUS RHYTHM NONSPECIFIC T WAVE ABNORMALITY PROLONGED QT ABNORMAL ECG NO PREVIOUS ECGS AVAILABLE Confirmed by KAUSHIK GUADALUPE MD ([id number]) on 06/04/2022 3:38:07 AM Test Reason : Location : 4 : [place] [facility] Overread By : KAUSHIK GUADALUPE MD Edited By : KAUSHIK GUADALUPE MD Referred By : , Acquired by : FRIEDKIRTI Normal [facility] HCG Preg Ur Qlon 05-31-2022 HCG ( test) Ql (U) Negative Normal Negative [facility] Comment on above: Order Comment: Speci men Type: URINE SPECIMENOrdering Facility: [facility] Address: [address] [place], [place] [id number] Result Comment: This test is intended to aid in the early detection of . Very dilute urine samples, as indicated by a low specific gravity, may not contain customer solutions representative levels of hCG. This test detects intact hCG only. This test does not reliably detect hCG degradation products, including free-beta subunit and beta-core fragment. Therefore, this test may show reduced reactivity in urine after 8 weeks gestation. A number of conditions other than , including trophoblastic disease and certain non-trophoblastic neoplasms cause elevated levels of hCG. As with any assay employing mouse antibodies, the possibility exists for interference by human anti-mouse antibodies (HAMA) in the specimen. The test provides a presumptive diagnosis for . Performed By: #### 2 106-3 ####[facility] LABORATORYCLIA [id number] [place] [address] [place] Lipase SerPl-cCncon 05-31-20 Lipase [Catalytic activity/Vol] 17 U/L Normal 16-61 [facility] Comment on above: Order Comment: Speci men Type: BLOOD SPECIMENOrdering Facility: [facility] Address: [address] [place] [address] Performed By: #### 3 040-3, 82945-1, 03894-0 ####[facility]ORATORYCLIA [id number] [place] [address] [place] Magnesium SerPl-mCncon 05-31 Magnesium [Mass/Vol] 1.8 mg/dL Normal 1.7-2.3 [facility] Comment on above: Order Comment: Speci men Type: BLOOD SPECIMENOrdering Facility: [facility] Address: [address] [place] [address] Performed By: #### 3 040-3, 75656-4, 54734-4 ####[facility] LABORATORYCLIA [id number] [place] [address] [place] ROUTINE FLU A/B + RSVon 08- FLUAV RNA CHICHO+probe Ql (Unsp spec) Negative Normal Negative for Influenza A by RT-PCR [facility] Comment on above: Order Comment: Speci men Type: SWAB OF INTERNAL NOSEOrdering Facility: [facility] Address: [address] [place] [address] Performed By: #### R TFRSV, 62357-8 ####[facility] LABCLIA [id number] [address] [place] FLUBV RNA CHICHO+probe Ql (Unsp spec) Negative Normal Negative for Influenza B by RT-PCR [facility] Comment on above: Order Comment: Speci men Type: SWAB OF INTERNAL NOSEOrdering Facility: [facility] Address: [address] [place] [address] Performed By: #### R TFRSV, 81072-4 ####[facility] LABCLIA [id number] [place] [address] [place] RSV A RNA CHICHO+probe Ql (Unsp spec) Negative Normal Negative for Respiratory Syncytial Virus (RSV) by PCR [facility] Comment on above: Order Comment: Speci men Type: SWAB OF INTERNAL NOSEOrdering Facility: [facility] Address: [address] [place] [address] Performed By: #### R TFRSV, 34588-1 ####[facility] LABCLIA [id number] [place] [address] [place] SARS-CoV-2 RNA Resp Ql CHICHO+p robeon 05-31-2022 SARS-CoV-2 (COVID-19) RNA CHICHO+probe Ql (Resp) SARS-CoV-2 (Agent of COVID-19) Detected by RT-PCR or equivalent method. Abnormal Not Detected [facility] Comment on above: Order Comment: Speci men Type: SWAB OF INTERNAL NOSEOrdering Facility: [facility] Address: [address] [place] [address] Result Comment: This test was developed and its performance characteristics determined by [facility]'s [facility] [place]. This test has been authorized by FDA under an Emergency Use Authorization (EUA). This test has been validated in accordance with the FDA's Guidance Document Policy for Diagnostics Testing in Laboratories Certified to Perform High Complexity Testing under CLIA prior to Emergency use Authorization for Coronavirus Disease 2019 during the Public Health Emergency issued on December 09, 2019. Test performed by [facility], [facility] [place], [address] [place] [address]. Performed By: #### R [facility], 12305-2 ####[facility] LABCLIA [id number] [address] [place] Urinalysis complete panel (U )on 05-31-2022 Bilirubin Ql (U) Negative Normal Negative [facility] Comment on above: Order Comment: Speci men Type: URINE SPECIMENOrdering Facility: [facility] Address: [address] [place] [address] Performed By: #### 2 4356-8 ####[facility] LABORATORYCLIA [id number] [address] [place] Clarity (Unsp spec) Clear Normal Clear [facility] Comment on above: Order Comment: Speci men Type: URINE SPECIMENOrdering Facility: [facility] Address: [address] [place] [address] Performed By: #### 2 4356-8 ####[facility] LABORATORYCLIA [id number] [address] [place] Color (U) Colorless Normal yellow [facility] Comment on above: Order Comment: Speci men Type: URINE SPECIMENOrdering Facility: [facility] Address: [address] [place] [address] Performed By: #### 2 4356-8 ####[facility] LABORATORYCLIA [id number] [address] Glucose Test strip (U) [Mass/Vol] Negative Normal Negative [facility] Comment on above: Order Comment: Speci men Type: URINE SPECIMENOrdering Facility: [facility] Address: [address] [place] [address] Performed By: #### 2 4356-8 ####[facility] LABORATORYCLIA [id number] [address] Hemoglobin Ql (U) Negative Normal Negative [facility] Comment on above: Order Comment: Speci men Type: URINE SPECIMENOrdering Facility: [facility] Address: [address] [place] [address] Performed By: #### 2 4356-8 ####[facility]ORATORYCLIA [id number] [address] [place] Ketones Ql (U) 2+ Abnormal Negative [facility] Comment on above: Order Comment: Speci men Type: URINE SPECIMENOrdering Facility: [facility] Address: [address] [place] [address] Performed By: #### 2 4356-8 ####[facility]ORATORYCLIA [id number] [address] Leukocyte esterase Test strip Ql (U) Negative Normal Negative [facility] Comment on above: Order Comment: Speci men Type: URINE SPECIMENOrdering Facility: [facility] Address: [address] [place] [address] Performed By: #### 2 4356-8 ####[facility] LABORATORYCLIA [id number] [place] [address] [place] Nitrite Ql (U) Negative Normal Negative [facility] Comment on above: Order Comment: Speci men Type: URINE SPECIMENOrdering Facility: [facility] Address: [address] [place] [address] Performed By: #### 2 4356-8 ####[facility] LABORATORYCLIA [id number] [address] STATES [facility] pH (U) 7.5 [pH] Normal 5.0-8.0 [facility] Comment on above: Order Comment: Speci men Type: URINE SPECIMENOrdering Facility: [facility] Address: [address] [place] [address] Performed By: #### 2 4356-8 ####[facility]ORATORYCLIA [id number] [address] STATES [facility] Protein (U) [Mass/Vol] Negative Normal Negative [facility] Comment on above: Order Comment: Speci men Type: URINE SPECIMENOrdering Facility: [facility] Address: [address] [place] [address] Performed By: #### 2 4356-8 ####[facility]ORATORYCLIA [id number] [address] [place] RBC LM.HPF (Urine sed) [#/Area] 0-3 /HPF Normal 0-3 /HPF [facility] Comment on above: Order Comment: Speci men Type: URINE SPECIMENOrdering Facility: [facility] Address: [address] [place] [address] Performed By: #### 2 4356-8 ####[facility] LABORATORYCLIA [id number] [address] Urobilinogen Ql (U) Normal Normal Negative [facility] Comment on above: Order Comment: Speci men Type: URINE SPECIMENOrdering Facility: [facility] Address: [address] [place] [address] Performed By: #### 2 4356-8 ####[facility] LABORATORYCLIA [id number] [address] [place] WBC LM.HPF (Urine sed) [#/Area] 0-5 /HPF Normal 0-5 /HPF [facility] Comment on above: Order Comment: Speci men Type: URINE SPECIMENOrdering Facility: [facility] Address: [address] [place] [address] Performed By: #### 2 4356-8 ####[facility] LABORATORYCLIA [id number] [address] Urinalysis complete pnl Uron 05-31-2022 Specific gravity (U) [Rel density] 1.005 Normal 1.005-1.030 [facility] Comment on above: Order Comment: Speci men Type: URINE SPECIMENOrdering Facility: [facility] Address: [address] [place] [address] Performed By: #### 2 4356-8 ####[facility] LABORATORYCLIA [id number] [address] Result Comment: If s pecific gravity is <1.005 then results may be falsely negative. Serum HCG is recommended. Performed By: #### 2 106-3 ####[facility] LABORATORYCLIA [id number] [address] ALLIED HEALTHon 12-31-2021 ALLIED HEALTH HNO ID: [id number] Author: RT Tierney(R) Service: Radiology Author Type: Laundry Assistant Type: Allied Health Filed: 12/31/2021 7:25 PM Note Text: Radiology Service Progress Note DATE OF SERVICE: December 31, 2021 TIME: 7:20 PM PATIENT IDENTITY VERIFICATION COMPLETED USING TWO (2) STANDARD IDENTIFIERS: Name and Date of confirmed by patient verbally and Name and Date of confirmed by identification band. FALL SCREENING: Has the patient had 2 falls in the last year or 1 fall with injury or currently using an Ambulatory Assistive Device (Walker, Cane, Wheelchair, Crutches, etc.)? Emergency Room Patient: Screened in ED PATIENT GENDER DATA: Female. status: : No status: NO. PATIENT RELEVANT IMPLANT DATA REVIEWED: Not Applicable ALLERGIES: Reviewed and unchanged CONTRAST ALLERGY: NO. EXAM: CT -CONTRAST INDUCED NEPHROPATHY RISK FACTORS: Not applicable CREATININE: Creatinine Date Value Ref Range Status 12/31/2021 0.78 0.51 - 0.95 mg/dL Final 05/09/2015 0.71 0.40 - 1.30 mg/dL Final 07/09/2014 0.71 0.30 - 1.20 mg/dL Final Estimated Glomerular Filtration Rate Date Value Ref Range Status 12/31/2021 110 >=60 mL/min/1.73m? Final Comment: Estimated Glomerular Filtration Rate (eGFR) is calculated using the 2020 CKD-EPI creatinine equation. This equation utilizes serum creatinine, sex, and age as parameters. The creatinine assay has traceable calibration to isotope dilution-mass spectrometry. Refer to KDIGO guidelines for clinical interpretation. In patients with unstable renal function, e.g. those with acute kidney injury, the eGFR may not accurately reflect actual GFR. P.O.C.T. RESULTS: POC done: Yes, See Lab Tab December 31, 2021 TREATMENT: N/A PERIPHERAL IV DATA: Inpatient - refer to LDA documentation RADIOLOGY DEPARTMENT: CT; Exam(s) Completed: Abdomen/Pelvis SIGNATURE: RT Tierney(R) PATIENT NAME: Luz Oliveira DATE: December 31, 2021 TIME: 7:20 PM Normal [facility] Bacteria Ur Culton 2 Bacteria identified Cx Nom (U) CULTURE, URINE: Three or more urogenital den organisms. No predominating uropathogen. Recollect if clinically indicated. Normal [facility] Comment on above: Performed By: #### 6 30-4 #### [facility] CLIA [id number] [address] STATES OF [facility] CBC W Auto Differential pane l (Bld)on 12-31-2021 Basophils (Bld) [#/Vol] 10*3/uL Normal <0.11 [facility] Comment on above: Order Comment: Speci men Type: BLOOD SPECIMENOrdering Facility: [facility] Address: [address] [place] [address] [place] [address] Performed By: #### 5 7021-8 ####[facility] LABCLIA [id number] [address] STATES OF [facility] Basophils/100 WBC (Bld) 0.1 % Normal [facility] Comment on above: Order Comment: Speci men Type: BLOOD SPECIMENOrdering Facility: [facility] Address: [address] [place] [address] Performed By: #### 5 7021-8 ####[facility] LABCLIA [id number] [facility] [address] [facility] Differential cell count method Nom (Bld) Auto Normal [facility] Comment on above: Order Comment: Speci men Type: BLOOD SPECIMENOrdering Facility: [facility] Address: [address] [place] [address] Performed By: #### 5 7021-8 ####[facility] LABCLIA [id number] [facility] [address] [facility] Eosinophils (Bld) [#/Vol] 0.03 10*3/uL Normal <0.46 [facility] Comment on above: Order Comment: Speci men Type: BLOOD SPECIMENOrdering Facility: [facility] Address: [address] [place] [address] Performed By: #### 5 7021-8 ####[facility] LABCLIA [id number] [facility], [facility]254 [facility] Eosinophils/100 WBC (Bld) 0.3 % Normal [facility] Comment on above: Order Comment: Speci men Type: BLOOD SPECIMENOrdering Facility: [facility] Address: [address] [place] [address] Performed By: #### 5 7021-8 ####[facility] LABCLIA [id number] [place] [address] [facility] [place] Erythrocyte distribution width (RBC) [Ratio] 12.0 % Normal 11.5-15.0 [facility] Comment on above: Order Comment: Speci men Type: BLOOD SPECIMENOrdering Facility: [facility] Address: [address] [place] [address] Performed By: #### 5 7021-8 ####[facility] LABCLIA [id number] [facility] [address] [place] Hematocrit (Bld) [Volume fraction] 40.3 % Normal 36.0-46.0 [facility] Comment on above: Order Comment: Speci men Type: BLOOD SPECIMENOrdering Facility: [facility] Address: [address] [place] [address] Performed By: #### 5 7021-8 ####[facility] LABCLIA [id number] [facility] [address] [place] Hemoglobin (Bld) [Mass/Vol] 13.8 g/dL Normal 11.5-15.5 [facility] Comment on above: Order Comment: Speci men Type: BLOOD SPECIMENOrdering Facility: [facility] Address: [address] [place] [address] Performed By: #### 5 7021-8 ####[facility] ID [employer] LABCLIA [id number] [facility] [address] [place] Lymphocytes (Bld) [#/Vol] 1.98 10*3/uL Normal 1.00-4.00 [facility] Comment on above: Order Comment: Speci men Type: BLOOD SPECIMENOrdering Facility: [facility] Address: [address] [place] [address] Performed By: #### 5 7021-8 ####[facility] [employer] LABCLIA [id number] [place] [address] [place] Lymphocytes/100 WBC (Bld) 20.3 % Normal [facility] Comment on above: Order Comment: Speci men Type: BLOOD SPECIMENOrdering Facility: [facility] Address: [address] [place] [address] Performed By: #### 5 7021-8 ####[facility] [employer] LABCLIA [id number] [place] [address] [place] MCH (RBC) [Entitic mass] 30.7 pg Normal 26.0-34.0 [facility] Comment on above: Order Comment: Speci men Type: BLOOD SPECIMENOrdering Facility: [facility] Address: [address] [place] [address] Performed By: #### 5 7021-8 ####[facility] LABCLIA [id number] [facility] [address] [place] MCHC (RBC) [Mass/Vol] 34.2 g/dL Normal 30.5-36.0 [facility] Comment on above: Order Comment: Speci men Type: BLOOD SPECIMENOrdering Facility: [facility] Address: [address] [place] [address] Performed By: #### 5 7021-8 ####[facility] LABCLIA [id number] [place] [address] [place] MCV (RBC) [Entitic vol] 89.6 fL Normal 80.0-100.0 [facility] Comment on above: Order Comment: Speci men Type: BLOOD SPECIMENOrdering Facility: [facility] Address: [address] [place] [address] Performed By: #### 5 7021-8 ####[facility] LABCLIA [id number] [facility], [address] Monocytes (Bld) [#/Vol] 0.70 10*3/uL Normal <0.87 [facility] Comment on above: Order Comment: Speci men Type: BLOOD SPECIMENOrdering Facility: [facility] Address: [address] [place] [address] Performed By: #### 5 7021-8 ####[facility] BATH LABCLIA [id number] [facility], [facility]254 [facility] Monocytes/100 WBC (Bld) 7.2 % Normal [facility] Comment on above: Order Comment: Speci men Type: BLOOD SPECIMENOrdering Facility: [facility] Address: [address] [place] [address] Performed By: #### 5 7021-8 ####[facility] BATH LABCLIA [id number] [facility] [address] [facility] [place] Neutrophils (Bld) [#/Vol] 7.02 10*3/uL Normal 1.45-7.50 [facility] Comment on above: Order Comment: Speci men Type: BLOOD SPECIMENOrdering Facility: [facility] Address: [address] [place] [address] Performed By: #### 5 7021-8 ####[facility] LABCLIA [id number] [place] [address] [place] Neutrophils/100 WBC (Bld) 72.1 % Normal [facility] Comment on above: Order Comment: Speci men Type: BLOOD SPECIMENOrdering Facility: [facility] Address: [address] [place] [address] Performed By: #### 5 7021-8 ####[facility] LABCLIA [id number] [place] [address] [place] Platelet mean volume (Bld) [Entitic vol] 9.7 fL Normal 9.0-12.7 [facility] Comment on above: Order Comment: Speci men Type: BLOOD SPECIMENOrdering Facility: [facility] Address: [address] [place] [address] Performed By: #### 5 7021-8 ####[facility] LABCLIA [id number] [facility] [address] [place] Platelets (Bld) [#/Vol] 251 10*3/uL Normal 150-400 [facility] Comment on above: Order Comment: Speci men Type: BLOOD SPECIMENOrdering Facility: [facility] Address: [address] [place] [address] Performed By: #### 5 7021-8 ####[facility] LABCLIA [id number] [place] [address] [place] RBC (Bld) [#/Vol] 4.50 10*6/uL Normal 3.90-5.20 [facility] Comment on above: Order Comment: Speci men Type: BLOOD SPECIMENOrdering Facility: [facility] Address: [address] [place] [address] Performed By: #### 5 7021-8 ####[facility] LABCLIA [id number] [place] [address] [facility] WBC (Bld) [#/Vol] 9.74 10*3/uL Normal 3.70-11.00 [facility] Comment on above: Order Comment: Speci men Type: BLOOD SPECIMENOrdering Facility: [facility] Address: [address] [place], [place] [address] [id number] Performed By: #### 5 7021-8 ####[facility] LABCLIA [id number] [place] [address] [facility] OF [place] CT ABD/PEL W IVCONon 022 CT ABD/PEL W IVCON * * *Final Report* * * DATE OF EXAM: Dec 31 2021 7:25PM [facility] 0530 - CT ABD/PEL W IVCON / PROCEDURE REASON: Abd pain, fever, elev WBC, appendicitis suspected, atypical presentation * * * * Physician Interpretation * * * * EXAMINATION: CT ABDOMEN AND PELVIS WITH IV CONTRAST CLINICAL HISTORY: Abd pain, fever, elev WBC, appendicitis suspected, atypical presentation TECHNIQUE: CT of the abdomen and pelvis was performed using standard technique, scanning from just above the dome of the diaphragm to the symphysis pubis. MQ: CTAP_3 Contrast: IV: 145 ml of Omnipaque 300 : ml of CT Radiation dose: Integrated Dose-length product (DLP) for this visit = 869 mGy*cm. CT Dose Reduction Employed: Automated exposure control (AEC) COMPARISON: None. RESULT: Liver: No mass. Diffuse decreased attenuation consistent with fatty change Biliary: No bile duct dilation. Gallbladder is unremarkable. Spleen: No mass. No splenomegaly. Pancreas: No mass or duct dilation. Adrenals: No mass. Kidneys: Atrophic left kidney with significant areas of cortical scarring. Difficult to evaluate for the presence of stones due to early contrast excretion. However, I suspect that there are a few small nonobstructing calculi. GI tract: No dilation or wall thickening. Appendix is unremarkable Lymph nodes: No abdominal or pelvic lymphadenopathy. Mesentery/Peritoneum: No ascites or mass. Retroperitoneum: No mass. Vasculature: - Abdominal aorta and iliac arteries: No aneurysm. - Celiac and SMA: Patent without stenosis. - Portal venous system (SMV, splenic vein, portal vein and branches): Patent. - Hepatic veins: Patent. Pelvis: No mass, ascites or fluid collection. Ovaries and adnexa are unremarkable. Uterus is to the right of midline. Urinary bladder is unremarkable. Bones/Soft Tissues: No significant finding. Lower thorax: Unremarkable. Clothing Worker (topogram) images: No additional findings. IMPRESSION: No acute abnormality Atrophic left kidney with cortical scarring and suspected small nonobstructing calculi. Findings may be related to chronic reflux disease or infection Hepatic steatosis Youth Coordinator: CAROLA Transcribe Date/Time: Dec 31 2021 7:37P Dictated by : DIYA FUENTES MD This examination was interpreted and the report reviewed and electronically signed by: DIYA FUENTES MD on Dec 31 2021 7:42PM EST [id number] Normal [facility] Comprehensive metabolic 2000 panelon 12-31-2021 Albumin [Mass/Vol] 4.0 g/dL Normal 3.4-5.0 [facility] Comment on above: Order Comment: Speci men Type: BLOOD SPECIMENOrdering Facility: [facility] Address: [address] [place] [address] Performed By: #### 2 4323-8, ####[employer] [facility] ID [employer] LABCLIA [id number] [place] [address] [place] ALP [Catalytic activity/Vol] 74 U/L Normal 46-116 [facility] Comment on above: Order Comment: Speci men Type: BLOOD SPECIMENOrdering Facility: [facility] Address: [address] [place] [address] Performed By: #### 2 4323-8, ####[employer] LABCLIA [id number] [place] [address] [place] ALT With P-5'-P [Catalytic activity/Vol] 55 U/L Normal 12-78 [facility] Comment on above: Order Comment: Speci men Type: BLOOD SPECIMENOrdering Facility: [facility] Address: [address] [address] Performed By: #### 2 432-8, ####[facility] LABCLIA [id number] [place] [address] [place] Anion gap [Moles/Vol] 2 mmol/L Low 8-16 [facility] Comment on above: Order Comment: Speci men Type: BLOOD SPECIMENOrdering Facility: [facility] Address: [address] [place] [address] Performed By: #### 2 8, ####[facility] LABCLIA [id number] [place] [address] [place] AST With P-5'-P [Catalytic activity/Vol] 29 U/L Normal 15-46 [facility] Comment on above: Order Comment: Speci men Type: BLOOD SPECIMENOrdering Facility: [facility] Address: [address] [place] [address] Result Comment: Spec imen slightly hemolyzed. Performed By: #### 2 4323-05, ####[facility] BATH LABCLIA [id number] [place] [address] [place] Bilirubin [Mass/Vol] 0.2 mg/dL Normal 0.2-1.0 [facility] Comment on above: Order Comment: Speci men Type: BLOOD SPECIMENOrdering Facility: [facility] Address: [address] [place], [place] [id number] Performed By: #### 2 8, ####[facility] LABCLIA [id number] [place] [address] [place] Calcium [Mass/Vol] 9.1 mg/dL Normal 8.5-10.1 [facility] Comment on above: Order Comment: Speci men Type: BLOOD SPECIMENOrdering Facility: [facility] Address: [address] [place], [place] [id number] Performed By: #### 2 4328, ####[facility] LABCLIA [id number] [place] [address] [place] Chloride [Moles/Vol] 100 mmol/L Normal 98-107 [facility] Comment on above: Order Comment: Speci men Type: BLOOD SPECIMENOrdering Facility: [facility] Address: [address] [place] [address] Performed By: #### 2 4323-8, ####[facility] LABCLIA [id number] [place] [address] [place] CO2 [Moles/Vol] 33 mmol/L High 21-32 [facility] Comment on above: Order Comment: Speci men Type: BLOOD SPECIMENOrdering Facility: [facility] Address: [address] [place] [address] Performed By: #### 2 4323-8, ####[facility] LABCLIA [id number] [place] [address] [place] [facility] Creatinine [Mass/Vol] 0.78 mg/dL Normal 0.51-0.95 [facility] Comment on above: Order Comment: Speci men Type: BLOOD SPECIMENOrdering Facility: [facility] Address: [address] [place] [address] Performed By: #### 2 4323-8, ####[facility] LABCLIA [id number] [place] [address] [facility] ESTIMATED GLOMERULAR FILTRATION RATE 110 mL/min/1.73m??? Normal >=60 [facility] Comment on above: Order Comment: Speci men Type: BLOOD SPECIMENOrdering Facility: [facility] Address: [address] [place] [address] Result Comment: Tierra mated Glomerular Filtration Rate (eGFR) is calculated using the 2020 CKD-EPI creatinine equation. This equation utilizes serum creatinine, sex, and age as parameters. The creatinine assay has traceable calibration to isotope dilution-mass spectrometry. Refer to KDIGO guidelines for clinical interpretation. In patients with unstable renal function, e.g. those with acute kidney injury, the eGFR may not accurately reflect actual GFR. Performed By: #### 2 4323-8, ####[facility] ID [employer] LABCLIA [id number] [place] [address] [place] Glucose [Mass/Vol] 94 mg/dL Normal 70-99 [facility] Comment on above: Order Comment: Speci men Type: BLOOD SPECIMENOrdering Facility: [facility] Address: [address] [place] [address] Result Comment: The [place] Diabetes Association (ADA) provides guidance for cutoff values for fasting glucose and random glucose. The ADA defines fasting as no caloric intake for at least 8 hours. Fasting plasma glucose results between 100 to 125 mg/dL indicate increased risk for diabetes (prediabetes). Fasting plasma glucose results greater than or equal to 126 mg/dL meet the criteria for diagnosis of diabetes. In the absence of unequivocal hyperglycemia, results should be confirmed by repeat testing. In a patient with classic symptoms of hyperglycemia or hyperglycemic crisis, random plasma glucose results greater than or equal to 200 mg/dL meet the criteria for diagnosis of diabetes. Reference: Standards of Medical Care in Diabetes 2016, [place] [employer] Association. Diabetes Care. 2016.39(Suppl 1). Performed By: #### 2 4323-8, 28679-7 ####[employer] [facility] ID [employer] LABCLIA [id number] [place] [address] [place] Potassium [Moles/Vol] 3.6 mmol/L Normal 3.5-5.1 [facility] Comment on above: Order Comment: Speci men Type: BLOOD SPECIMENOrdering Facility: [facility] Address: [address] [place] [address] Result Comment: Spec imen slightly hemolyzed. Performed By: #### 2 4323-8, ####[facility] [employer] LABCLIA [id number] [place] [address] [place] Protein [Mass/Vol] 7.7 g/dL Normal 6.4-8.2 [facility] Comment on above: Order Comment: Speci men Type: BLOOD SPECIMENOrdering Facility: [facility] Address: [address] [place] [address] Performed By: #### 2 4323-8, ####[facility] LABCLIA [id number] [facility] [address] [place] Sodium [Moles/Vol] 135 mmol/L Low 136-145 [facility] Comment on above: Order Comment: Speci men Type: BLOOD SPECIMENOrdering Facility: [facility] Address: [address] [place], [place] [id number] Performed By: #### 2 4323-8, ####[facility] LABCLIA [id number] [place] [address] [place] Urea nitrogen [Mass/Vol] 10 mg/dL Normal 7-18 [facility] Comment on above: Order Comment: Speci men Type: BLOOD SPECIMENOrdering Facility: [facility] Address: [address] [place] [address] Performed By: #### 2 4323-8, ####[facility] LABCLIA [id number] [place] [address] [facility] ED NOTEon 12-31-2021 ED NOTE HNO ID: [id number] Author: Amy Pena RN Service: Emergency Medicine Author Type: Registered Nurse Type: ED Notes Filed: 12/31/2021 7:03 PM Note Text: Patient resting in room. Patient updated on the plan of care. Bed in low locked position. Call light in reach. Monitoring maintained. Safety and comfort care maintained. Normal [facility] ED NOTE HNO ID: [id number] Author: Amy Pena RN Service: Emergency Medicine Author Type: Registered Nurse Type: ED Notes Filed: 12/31/2021 6:34 PM Note Text: Patient resting in room. Patient updated on the plan of care. Bed in low locked position. Call light in reach. Monitoring maintained. Safety and comfort care maintained. [facility] ED NOTE HNO ID: [id number] Author: Amy Pena RN Service: Emergency Medicine Author Type: Registered Nurse Type: ED Notes Filed: 12/31/2021 5:20 PM Note Text: Patient resting in room. Patient updated on the plan of care. Bed in low locked position. Call light in reach. Monitoring maintained. Safety and comfort care maintained. Normal [facility] ED NOTE HNO ID: [id number] Author: Amy Pena RN Service: Emergency Medicine Author Type: Registered Nurse Type: ED Notes Filed: 12/31/2021 4:55 PM Note Text: Patient updated on the plan of care. Patient medicated per order. Allergies reviewed. Patient verbalized understanding. Normal [facility] ED NOTE HNO ID: [id number] Author: Katarzyna Chau RN Service: Emergency Medicine Author Type: Registered Nurse Type: ED Notes Filed: 12/31/2021 4:09 PM Note Text: Rt lower quad pain began yesterday base brander with nausea. Emesis x 1 today. Normal BM today. Pt denies dysuria or hematuria. Hx of kidney stone and UTI Normal [facility] ED PROV NOTEon 12-31-2021 ED PROV NOTE HNO ID: [id number] Author: Mary Pereira DO Service: Emergency Medicine Author Type: Resident Type: ED Provider Notes Filed: 12/31/2021 8:03 PM Note Text: Attestation signed by Jayde Yeager MD at 12/31/2021 9:00 PM Attending Note I evaluated the patient and personally participated in the martin components. I agree with the resident's findings and plan as documented and have discussed the case and management of the patient's care with the resident. Signature: Jayde Yeager MD Date: 12/31/2021 Time: 9:00 PM ED Provider Note Patient Name: Luz Oliveira : 2000 SERVICE DATE: 12/31/21 History Patient presents with: Abdominal Pain Nausea AND Vomiting This patient is a 21-year-old female with history of ovarian cyst, vesicureteral reflux who presents to the ED for right lower quadrant pain. Patient states that her OB physician has popped her ovarian cysts manually in the past. Last night she started to develop right lower quadrant pain and was palpating around the area when she felt a sudden pop in the right lower quadrant followed by worsening pain. She also reports 2 episodes of nonbloody emesis. Denies any fevers, dysuria, urinary urgency or frequency. Denies any history of STDs or concern for STDs. No vaginal discharge or pruritus. No history of abdominal surgeries in the past. Denies any fevers. No medications prior to arrival. PAST MEDICAL HISTORY Diagnosis Date - Cognitive disorder IEP per the [facility] - Kidney stone - Migraine - Urinary reflux - UTI (urinary tract infection) PAST SURGICAL HISTORY Procedure Laterality Date - ORAL SURGERY PROCEDURE FAMILY HISTORY Problem Relation Age of Onset - Thyroid Mother - Diabetes Mother - other (endometriosis) Mother - other (other) Father - Diabetes Maternal Grandmother - Breast Cancer Maternal Grandmother - Thyroid Maternal Grandmother - Diabetes Maternal Grandfather - Cancer Paternal Grandfather - other (Myocardial infarction [Other]) Paternal Grandfather age 57 - Heart Other maternal and paternal side Social History Tobacco Use - Smoking status: Never Smoker - Smokeless tobacco: Never Used - Tobacco comment: dad smokes outside Vaping Use - Vaping Use: Never used Substance and Sexual Activity - Alcohol use: Not Currently - Drug use: Never - Sexual activity: Yes Partners: Male ALLERGIES Allergen Reactions - Celexa [Citalopram * Other: See Comments Suicidal thoughts - Escitalopram Other: See Comments Review of Systems Constitutional: Negative for chills, fatigue and fever. HENT: Negative for congestion, ear pain and sore throat. Eyes: Negative for pain, redness and visual disturbance. Respiratory: Negative for cough, chest tightness, shortness of breath and wheezing. Cardiovascular: Negative for chest pain, palpitations and leg swelling. Gastrointestinal: Positive for abdominal pain, nausea and vomiting. Negative for blood in stool, constipation and diarrhea. Endocrine: Negative for polydipsia and polyuria. Genitourinary: Negative for dysuria, flank pain, frequency and hematuria. Musculoskeletal: Negative for myalgias. Skin: Negative for color change and rash. Neurological: Negative for dizziness, speech difficulty, weakness, light-headedness, numbness and headaches. Psychiatric/Behaviora l: Negative for confusion and suicidal ideas. Physical Exam Vitals BP Pulse Temp Temp src Resp SpO2 Weight Height 12/31/21 1624 12/31/21 1602 12/31/21 1602 12/31/21 1602 12/31/21 1602 12/31/21 1602 12/31/21 1602 -- 140/70 (!) 114 36.9 ?C (98.4 ?F) Temporal 20 100 % 72.6 kg (160 lb) Physical Exam Vitals and nursing note reviewed. Constitutional: General: She is not in acute distress. Appearance: Normal appearance. HENT: Head: Normocephalic and atraumatic. Right Ear: Tympanic membrane normal. Left Ear: Tympanic membrane normal. Mouth/Throat: Mouth: Mucous membranes are moist. Eyes: Extraocular Movements: Extraocular movements intact. Conjunctiva/sclera: Conjunctivae normal. Pupils: Pupils are equal, round, and reactive to light. Cardiovascular: Rate and Rhythm: Normal rate and regular rhythm. Pulses: Normal pulses. Heart sounds: No murmur heard. No friction rub. No gallop. Pulmonary: Effort: Pulmonary effort is normal. Breath sounds: Normal breath sounds. No wheezing, rhonchi or rales. Abdominal: General: Abdomen is flat. Bowel sounds are normal. Palpations: Abdomen is soft. Tenderness: There is abdominal tenderness in the right lower quadrant. There is no right CVA tenderness, left CVA tenderness, guarding or rebound. Musculoskeletal: Right lower leg: No edema. Left lower leg: No edema. Skin (more content not included)... Normal [facility] ED PROV NOTE HNO ID: [id number] Author: Jayde Yeager MD Service: Emergency Medicine Author Type: Physician Type: ED Provider Notes Filed: 12/31/2021 8:21 PM Note Text: HPI 21 yo F w pmhx of ovarian cysts who presents today w/ CC of abd pain. RLQ. Started last night. +n/v. No vaginal discharge. PE Gen:awake, alert, NAD, well appearing CV:RRR Pulm:CTAB Abd:soft, TTP in RLQ, no guarding or rebound DDX includes but not limited to:acute appy, ovarian cyst, torsion ED course and plan Labs, UA and pelvic us obtained. UA +, pt largely asymptomatic. Labs w/o leukocytosis. Pelvic us negative. CT a/p obtained to eval for acute appy. Negative for appy, does show ?infection of kidney. Will start pt on abx based on this and UA, will send Ur cx. Dc home. PCp fup. Return precautions given. Attending Note I evaluated the patient and personally participated in the martin components. I agree with the resident's findings and plan as documented and have discussed the case and management of the patient's care with the resident. Signature: Jayde Yeager MD Date: 12/31/2021 Time: 4:28 PM Jayde Yeager MD 12/31/212020 Normal [facility] HCG Preg Ur Qlon 12-31-2021 HCG ( test) Ql (U) Negative Normal Negative [facility] Comment on above: Order Comment: Speci men Type: URINE SPECIMENOrdering Facility: [facility] Address: [address] [place] [address], [place] [address] Result Comment: This test is intended to aid in the early detection of . Very dilute urine samples, as indicated by a low specific gravity, may not contain customer solutions representative levels of hCG. This test detects intact hCG only. This test does not reliably detect hCG degradation products, including free-beta subunit and beta-core fragment. Therefore, this test may show reduced reactivity in urine after 8 weeks gestation. A number of conditions other than , including trophoblastic disease and certain non-trophoblastic neoplasms cause elevated levels of hCG. As with any assay employing mouse antibodies, the possibility exists for interference by human anti-mouse antibodies (HAMA) in the specimen. The test provides a presumptive diagnosis for . Performed By: #### 2 106-3 ####[facility] LABCLIA [id number] [place] [address] [place] Magnesium SerPl-mCncon 12-31 Magnesium [Mass/Vol] 1.9 mg/dL Normal 1.6-2.3 [facility] Comment on above: Order Comment: Speci men Type: BLOOD SPECIMENOrdering Facility: [facility] Address: [place] [address] Performed By: #### 2 4323-8, 70214-4 ####[facility] LABCLIA [id number] [place] [address] [place] US DOPPLER COMPLETEon 2021 US DOPPLER COMPLETE * * *Final Report* * * DATE OF EXAM: Dec 31 2021 6:18PM AWU 1033 - US DOPPLER COMPLETE / PROCEDURE REASON: Torsion of ovary and ovarian pedicle * * * * Physician Interpretation * * * * EXAMINATION: TRANSVAGINAL AND LIMITED TRANSABDOMINAL PELVIC ULTRASOUND, WITH DOPPLER, 12/31/2021. CLINICAL HISTORY: Pelvic pain. Torsion of ovary suspected. TECHNIQUE: Sonography of the pelvis was performed by transvaginal and transabdominal (limited) techniques. Color Doppler was utilized. Images were obtained and stored in a permanent archive. MQ: UFP_1 COMPARISON: No prior studies currently available. RESULT: Uterus size: 6.9 x 3.7 x 4.5 cm -Orientation: Anteverted -Myometrium: Normal sonographic appearance. -Endometrial echo complex: 0.9 cm -Cervix: Normal Right ovary: 2.3 x 1.5 x 2.2 cm Normal sonographic appearance. Arterial and venous flow is present throughout the right ovary on color Doppler imaging with normal spectral waveforms. Left ovary: Not visualized. Pelvis free fluid: None. IMPRESSION: 1. Normal ultrasound appearance of the uterus. 2. Normal ultrasound appearance of the right ovary, including demonstrable blood flow, indicating that torsion is unlikely. 3. Nonvisualization left ovary because of bowel gas and/or factors related to body habitus. 4. No free fluid. Youth Coordinator: [facility] Transcribe Date/Time: Dec 31 2021 6:24P Dictated by : KAITY SHAY MD This examination was interpreted and the report reviewed and electronically signed by: KAITY SHAY MD on Dec 31 2021 6:28PM EST [id number] Normal [facility] US FEMALE PELVIS TRANSABD LT Don 12-31-2021 US FEMALE PELVIS TRANSABD LTD * * *Final Report* * * DATE OF EXAM: Dec 31 2021 6:18PM AWU 1059 - US FEMALE PELVIS TRANSABD LTD / PROCEDURE REASON: Torsion of ovary and ovarian pedicle * * * * Physician Interpretation * * * * EXAMINATION: TRANSVAGINAL AND LIMITED TRANSABDOMINAL PELVIC ULTRASOUND, WITH DOPPLER, 12/31/2021. CLINICAL HISTORY: Pelvic pain. Torsion of ovary suspected. TECHNIQUE: Sonography of the pelvis was performed by transvaginal and transabdominal (limited) techniques. Color Doppler was utilized. Images were obtained and stored in a permanent archive. MQ: UFP_1 COMPARISON: No prior studies currently available. RESULT: Uterus size: 6.9 x 3.7 x 4.5 cm -Orientation: Anteverted -Myometrium: Normal sonographic appearance. -Endometrial echo complex: 0.9 cm -Cervix: Normal Right ovary: 2.3 x 1.5 x 2.2 cm Normal sonographic appearance. Arterial and venous flow is present throughout the right ovary on color Doppler imaging with normal spectral waveforms. Left ovary: Not visualized. Pelvis free fluid: None. IMPRESSION: 1. Normal ultrasound appearance of the uterus. 2. Normal ultrasound appearance of the right ovary, including demonstrable blood flow, indicating that torsion is unlikely. 3. Nonvisualization left ovary because of bowel gas and/or factors related to body habitus. 4. No free fluid. Youth Coordinator: CAROLA Transcribe Date/Time: Dec 31 2021 6:24P Dictated by : KAITY SHAY MD This examination was interpreted and the report reviewed and electronically signed by: KAITY SHAY MD on Dec 31 2021 6:28PM EST [id number] Normal [facility] US FEMALE PELVIS TRANSVAGon 12-31-2021 US FEMALE PELVIS TRANSVAG * * *Final Report* * * DATE OF EXAM: Dec 31 2021 6:18PM AWU 1060 - US FEMALE PELVIS TRANSVAG / PROCEDURE REASON: Torsion of ovary and ovarian pedicle * * * * Physician Interpretation * * * * EXAMINATION: TRANSVAGINAL AND LIMITED TRANSABDOMINAL PELVIC ULTRASOUND, WITH DOPPLER, 12/31/2021. CLINICAL HISTORY: Pelvic pain. Torsion of ovary suspected. TECHNIQUE: Sonography of the pelvis was performed by transvaginal and transabdominal (limited) techniques. Color Doppler was utilized. Images were obtained and stored in a permanent archive. MQ: UFP_1 COMPARISON: No prior studies currently available. RESULT: Uterus size: 6.9 x 3.7 x 4.5 cm -Orientation: Anteverted -Myometrium: Normal sonographic appearance. -Endometrial echo complex: 0.9 cm -Cervix: Normal Right ovary: 2.3 x 1.5 x 2.2 cm Normal sonographic appearance. Arterial and venous flow is present throughout the right ovary on color Doppler imaging with normal spectral waveforms. Left ovary: Not visualized. Pelvis free fluid: None. IMPRESSION: 1. Normal ultrasound appearance of the uterus. 2. Normal ultrasound appearance of the right ovary, including demonstrable blood flow, indicating that torsion is unlikely. 3. Nonvisualization left ovary because of bowel gas and/or factors related to body habitus. 4. No free fluid. Youth Coordinator: [facility] Transcribe Date/Time: Dec 31 2021 6:24P Dictated by : KAITY SHAY MD This examination was interpreted and the report reviewed and electronically signed by: KAITY SHAY MD on Dec 31 2021 6:28PM EST [id number] Normal [facility] Urinalysis complete panel (U )on 12-31-2021 Bacteria LM.HPF (Urine sed) [#/Area] Many Abnormal None Seen [facility] Comment on above: Order Comment: Speci men Type: URINE SPECIMENOrdering Facility: [facility] Address: [address] [place] [address] Performed By: #### 2 4356-8 ####[facility] [employer] LABCLIA [id number] [address] STATES OF [facility] Bilirubin Ql (U) Negative Normal Negative [facility] Comment on above: Order Comment: Speci men Type: URINE SPECIMENOrdering Facility: [facility] Address: [address] [address] Performed By: #### 2 4356-8 ####[facility] LABCLIA [id number] [place] [id number] [place] Clarity (Unsp spec) Clear Normal Clear [facility] Comment on above: Order Comment: Speci men Type: URINE SPECIMENOrdering Facility: [facility] Address: [address] [place] [address] Performed By: #### 2 4356-8 ####[facility] LABCLIA [id number] [facility] [address] [place] Color (U) Yellow Normal Yellow [facility] Comment on above: Order Comment: Speci men Type: URINE SPECIMENOrdering Facility: [facility] Address: [address] [place] [address] Performed By: #### 2 4356-8 ####[facility] LABCLIA [id number] [facility] [address] [facility] Epithelial cells LM.HPF (Urine sed) [#/Area] Many Normal [facility] Comment on above: Order Comment: Speci men Type: URINE SPECIMENOrdering Facility: [facility] Address: [address] [place] [address] Performed By: #### 2 4356-8 ####[facility] LABCLIA [id number] [facility] [address] [facility] Glucose Test strip (U) [Mass/Vol] Negative Normal Negative [facility] Comment on above: Order Comment: Speci men Type: URINE SPECIMENOrdering Facility: [facility] Address: [address] [place] [address] Performed By: #### 2 4356-8 ####[facility] LABCLIA [id number] [facility] [address] [place] Hemoglobin Ql (U) 2+ Abnormal Negative [facility] Comment on above: Order Comment: Speci men Type: URINE SPECIMENOrdering Facility: [facility] Address: [address] [place] [address] Performed By: #### 2 4356-8 ####[facility] LABCLIA [id number] [facility] [address] [place] Ketones Ql (U) Negative Normal Negative [facility] Comment on above: Order Comment: Speci men Type: URINE SPECIMENOrdering Facility: [facility] Address: [address] [place] [address] Performed By: #### 2 4356-8 ####[facility] LABCLIA [id number] [facility] [address] [facility] [place] Leukocyte esterase Test strip Ql (U) Trace Abnormal Negative [facility] Comment on above: Order Comment: Speci men Type: URINE SPECIMENOrdering Facility: [facility] Address: [address] [place] [address] Performed By: #### 2 4356-8 ####[facility] LABCLIA [id number] [facility] [address] [place] Nitrite Ql (U) Negative Normal Negative [facility] Comment on above: Order Comment: Speci men Type: URINE SPECIMENOrdering Facility: [facility] Address: [address] [place] [address] Performed By: #### 2 4356-8 ####[facility] LABCLIA [id number] [facility] [address] [place] pH (U) 6.0 [pH] Normal 5.0-8.0 [facility] Comment on above: Order Comment: Speci men Type: URINE SPECIMENOrdering Facility: [facility] Address: [address] [place] [address] Performed By: #### 2 4356-8 ####[facility] LABCLIA [id number] [facility] [address] [place] Protein (U) [Mass/Vol] Normal [facility] Comment on above: Order Comment: Speci men Type: URINE SPECIMENOrdering Facility: [facility] Address: [address] [place] [address] Result Comment: Visi ble blood causes falsely elevated results for analyte Protein. Due to this limitation, Protein will not be reported for patients whose urine contains visible blood. Performed By: #### 2 4356-8 ####[facility] LABCLIA [id number] [place] [address] [place] [facility] RBC LM.HPF (Urine sed) [#/Area] 11-25 /HPF Abnormal 0-3 /HPF [facility] Comment on above: Order Comment: Speci men Type: URINE SPECIMENOrdering Facility: [facility] Address: [address] [place] [address] Performed By: #### 2 4356-8 ####[facility] LABCLIA [id number] [place] [address] [facility] Specific gravity (U) [Rel density] >=1.030 High 1.005-1.030 [facility] Comment on above: Order Comment: Speci men Type: URINE SPECIMENOrdering Facility: [facility] Address: [address] [place] [address] Performed By: #### 2 4356-8 ####[facility] LABCLIA [id number] [address] Urobilinogen Ql (U) 0.2 EU/dL Normal 0.2-1.0 EU/dL [facility] Comment on above: Order Comment: Speci men Type: URINE SPECIMENOrdering Facility: [facility] Address: [address] [place] [address] Performed By: #### 2 4356-8 ####[facility] LABCLIA [id number] [place] [id number] [facility] WBC LM.HPF (Urine sed) [#/Area] 6-10 /HPF Abnormal 0-5 /HPF [facility] Comment on above: Order Comment: Speci men Type: URINE SPECIMENOrdering Facility: [facility] Address: [address] [place] [address] Performed By: #### 2 4356-8 ####[facility] LABCLIA [id number] [place] [address] [facility] COVID 19, [facility](RT COLLECT )on 03-17-2021 SARS-CoV-2 (COVID-19) RNA [facility]HO+probe Ql (Unsp spec) Not detected Normal Not Detect [facility] Comment on above: Result Comment: Norm al Reference Range: Not Detected Method:(RT-PCR) real-time reverse transcriptase PCR [employer] Vedicis Instrument *The Food and Drug Administration (FDA) has issued an Emergency Use Authorization (EAU) for the Vedicis SARS-CoV-2 Assay for the rapid detection of the virus that causes COVID-19. This test has been validated, but the FDAs independent review of this validation is pending. *Negative results do not preclude infection and should not be used as the sole basis for treatment or patient management. Optimum specimen types and timing for peak viral levels during infections caused by SARS-CoV-2 have not been determined. Collection of multiple specimens from the same patient may be necessary to detect the virus. The possibility of a false negative result should be considered if the patient has clinical presentation or has had recent exposure. Performed By: #### L 3400.2405 #### [facility] [address] [place], [address] HAND RIGHT COMPLETEon 2020 HAND RIGHT COMPLETE EXAM: Right hand HISTORY: Pain after shutting a door on the hand on 01/27/2021. TECHNIQUE: 3 views of the right hand were obtained. FINDINGS: There is no evidence of fracture or dislocation. There are no suspicious bone lesions. Soft tissues are normal. IMPRESSION: No acute findings. Normal [facility] BASIC METABOLIC PANELon 01-0 Anion gap [Moles/Vol] 13 mmol/L Normal 10 - 20 [facility] Comment on above: Performed By: #### B MP #### [address] [address] Calcium [Mass/Vol] 9.5 mg/dL Normal 8.6 - 10.3 [facility] Comment on above: Performed By: #### B MP #### [address] [address] Chloride [Moles/Vol] 104 mmol/L Normal 98 - 107 [facility] Comment on above: Performed By: #### B MP #### [address] [address] Creatinine [Mass/Vol] 0.76 mg/dL Normal 0.50 - 1.05 [facility] Comment on above: Performed By: #### B MP #### [address] [address] GFR- AM. >60 Normal >60 [facility] Comment on above: Result Comment: CALC ULATIONS OF ESTIMATED GFR ARE PERFORMED USING THE MDRD STUDY EQUATION FOR THE IDMS-TRACEABLE CREATININE METHODS. CLIN CHEM 2007;53:766-72 Performed By: #### B MP #### [address] [address] GFR-NON AM. >60 Normal >60 [facility] Comment on above: Performed By: #### B MP #### [address] [address] Glucose [Mass/Vol] 88 mg/dL Normal 74 - 99 [facility] Comment on above: Performed By: #### B MP #### [address] [address] HCO3 (Bld) [Moles/Vol] 27 mmol/L Normal 21 - 32 [facility] Comment on above: Performed By: #### B MP #### [address] [address] Potassium [Moles/Vol] 3.8 mmol/L Normal 3.5 - 5.3 [facility] Comment on above: Performed By: #### B MP #### [address] [address] Sodium [Moles/Vol] 140 mmol/L Normal 136 - 145 [facility] Comment on above: Performed By: #### B MP #### [address] [address] Urea nitrogen [Mass/Vol] 11 mg/dL Normal 6 - 23 [facility] Comment on above: Performed By: #### B MP #### [address] [address] CBCon 10-17-2019 Erythrocyte distribution width (RBC) [Ratio] 12.5 % Normal 11.5 - 14.5 [facility] Comment on above: Performed By: #### C BC #### [address] [address] Hematocrit (Bld) [Volume fraction] 42.6 % Normal 36.0 - 46.0 [facility] Comment on above: Performed By: #### C BC #### [address] [address] Hemoglobin (Bld) [Mass/Vol] 14.5 g/dL Normal 12.0 - 16.0 [facility] Comment on above: Performed By: #### C BC #### [address] [address] MCHC (RBC) [Mass/Vol] 34.1 g/dL Normal 32.0 - 36.0 [facility] Comment on above: Performed By: #### C BC #### [address] [address] MCV (RBC) [Entitic vol] 91 fL Normal 80 - 100 [facility] Comment on above: Performed By: #### C BC #### [address] [address] Platelets (Bld) [#/Vol] 270 10*3/uL Normal 150 - [address] [facility] Comment on above: Performed By: #### C BC #### [address] [address] RBC (Bld) [#/Vol] 4.67 x10E12/L Normal 4.00 - 5.20 [facility] Comment on above: Performed By: #### C BC #### [address] [address] WBC (Bld) [#/Vol] 8.2 10*3/uL Normal 4.4 - 11.3 [facility] Comment on above: Performed By: #### C BC #### [address] [address] [address] HEAD WO CONTRASTon 2019 CT HEAD WO CONTRAST Patient Name: BIBI, LUZ STUDY: CT of the head without contrast INDICATION: dizzy/trauma COMPARISON: None ACCESSION NUMBER(S): [id number] ORDERING CLINICIAN: RASHMI FERRERA TECHNIQUE: A CT scan of the head was performed from the skull base to the vertex, without intravenous contrast. FINDINGS: The ventricles and sulci are within normal limits. There is no evidence of intraparenchymal hemorrhage or mass effect. The love-white junction is intact. The visualized paranasal sinuses are normal. The mastoid air cells are clear. The intraorbital contents are normal.Minimal soft tissue thickening is seen overlying the right frontal region.There is no calvarial fracture. IMPRESSION: 1. Minimal soft tissue thickening overlying right frontal region without calvarial fracture or intracranial hemorrhage. 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 Patient states she believes she has a UTI because while she was at work around 3pm started to feel dizzy and had lower back pain. Patient states she was sent home, and took a nap. States she went to take a shower after her nap because she was sweating. While the patient was in the shower she started to feel the room spinning, and fell, hitting her head and blacking out. Patient notes she normally has similar sx when she has a UTI. Patient is currently c/o head pain. ====Review of Systems==== 10 point system review is negative except for those specifically mentioned in history of present illness ====Physical Exam==== Constitutional/Genera l: Alert and conversant, well appearing, nontoxic, and in NAD. Head: Normocephalic and atraumatic. Eyes: PER, conjunctive normal, sclera nonicteric, subconjunctival layer is pink. Mouth: handling secretions, no trismus, dry mucous membranes Neck: Supple, full ROM, no stridor, no crepitus, no meningeal signs. Trachea at midline. Respiratory: not in respiratory distress. Chest: normal chest movement GI: nondistended Musculoskeletal: Moves all extremities, warm and well perfused Integument: Skin warm and dry, no rashes. ecchymosis with edema to the R forehead Neurologic: GCS 15, no focal deficits Psychiatric: Normal affect.. Portions of this note were dictated by speech recognition. An attempt at proof reading was made to minimize errors. Minor errors in nurse epidemiologist may be present. Please call if questions. Attestation: I, Juan Manuel Borden, am scribing for and in the presence of Dr. Rashmi Ferrera MD. I, Dr. Rashmi Ferrera, attests all medical record entries made by the scribe were under my direction and personally dictated by me. I have reviewed the chart and agree that the record accurately reflects my performance of the history, physical, and assessment and plan. I have also personally directed, reviewed, and agree with the discharge instructions.. HISTORY OF PRESENTING ILLNESS LUZ is a 19 year old Female and was seen by me at 17-Oct-2019 01:40 for a chief complaint of syncope (PT TO ED WITH C/O I HAVE BEEN FEELING DIZZY SINCE 3-4PM, WENT TO WORK, BUT CAME HOME EARLY,, AND I GOT A SHOW A SHOWER, AND PASSED OUT, I THINK AROUND 1999 AND HIT MY FOREHEAD ON THE SHOWER PT C/O STILL FEELING DIZZY.)(1). Triage Information: Most recent Vital Sign Value Date Temp (F): 99.3 10-16-2019 22:16 Temp (C): 37.3 10-16-2019 22:16 Heart Rate (beats/min): 101 10-16-2019 22:16 Respirations (breaths/min): 18 10-16-2019 22:16 SpO2 (%): 99 10-16-2019 22:16 BP Systolic (mm Hg): 147 10-16-2019 22:16 BP Diastolic (mm Hg): 78 10-16-2019 22:16 PAST MEDICAL HISTORY ATTESTATION: I have reviewed and confirmed nurse's/medic's notes for patient's medications, allergies, medical history, and surgical history ALLERGIES/INTOLERANCE S: Allergy Allergen: Lexapro Type: Drug Reaction: Unknown HEALTH HISTORY: No documented data. OUTPATIENT MEDICATIONS: Home Medications Review Status for Reconciliation: N/A Med Status: N/A No documented data. 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 Previous value was Red, verified at 10/17/2019 01:39 Appearance, Urine CLEAR Specific Mentor, Urine 1.021 pH, Urine 7.0 Protein, Urine NEGATIVE Glucose, Urine NEGATIVE Blood, Urine SMALL(1+) A Ketones, Urine NEGATIVE Bilirubin, Urine NEGATIVE Urobilinogen, Urine <2.0 Nitrite, Urine Negative Leukocyte Esterase, Urine TRACE A Urine Test 17-Oct-2019 01:24:00 ResultValue HCG, Urine NEGATIVE Urinalysis, Microscopic 17-Oct-2019 01:24:00 ResultValue White Cells 5-20 A Red Blood Cells 0-5 Epithelial Cells, Squamous 1+ Epithelial Cells, Transitional NEGATIVE Bacteria, Urine 1+ A Mucous 1+ Radiology Results: Impression: 1. Minimal soft tissue thickening overlying right frontal region without calvarial fracture or intracranial hemorrhage. CT Head without Contrast [Oct 17 2019 2:09AM] VITAL SIGNS: T PRBP SpO2O2(LPM) %FiO2 Method 17-Oct-2019 01:27:[id number]/80 100 room air, no respiratory support 16-Oct-2019 22:16:[id number] /78 99 room air, no respiratory support 16-Oct-2019 22:00:[id number] /78 99 room air, no respiratory support EKG INTERPRETATION: Impression: Sinus rhythm rate of 92, narrow, but, normal axis, no ST elevation or depression. CLINICAL IMPRESSION Diagnosis/Annotation: ED Dx Name:Dizziness Code:R42 Name:Scalp contusion Code:S00.03XA Name:Syncope and collapse Code:R55 Dispostion: discharged Type: home ATTESTATION Scribe Name: Juan Manuel Borden. Scribing on Behalf of: Dr. Rashmi Ferrera ATTENDING SCRIBE ATTESTATION STATEMENT I, Rashmi Ferrera MD, attests all medical record entries made by the scribe were under my direction and personally dictated by me. I have reviewed the chart and agree that the record accurately reflects my performance of the history, physical, and assessment plan. I have also personally directed, reviewed, and agree with disposition instructions. CRITICAL CARE TIME Is this a critically ill patient: no Electronic Signatures: Juan Manuel Borden (Scribe) (Entered 17-Oct-2019 01:49) Entered: Provider Note - ED v2 Rashmi Ferrera) (Signed 17-Oct-2019 03:25) Authored: Provider Note - ED v2 Last Updated: 17-Oct-2019 03:25 by Rashmi Ferrera () References: 1. Data Referenced From Triage - ED 16-Oct-2019 22:16 [facility] Risk Screen - Adult Emergenc yon 10-17-2019 Risk Screen - Adult Emergency Preferred Language: Preferred Language: Preferred Language for Discussing Health Care (patient/designee)Irene garcia Advanced Directives: Advance Directive/DNRno Family Violence Adult: Abuse Screen: Are you or have you been threatened or abused physically, emotionally, or sexually by anyoneno Learning Assessment (Patient): Learning Assessment (Patient): Patient is Able to be Assessed for Learningyes Factors Influencing Readiness to Learnacuteness of illness; interest in learning Factors that Impact Ability to Learnnone Devices/Methods Used to Communicatenone Learning Preferencesverbal instruction; written material Cultural Considerationsnone Developmental Considerationsnone Jewish Considerationsnone Other Learnerssignificant other Learning Assessment (Other Learner): Learning Assessment (Other Learner): Other learner availableyes... Learnersignificant other Factors Influencing Readiness to Learninterest in learning Factors that Impact Ability to Learnnone Devices/Methods Used to Communicatenone Learning Preferencesverbal instruction, written material Cultural Considerationsnone Developmental Considerationsnone Jewish Considerationsnone Pressure Injury/TB/Substance: Pressure Injury: Do you have a coughno Substance Use Current or Former Historynever: Cigarette/Tobacco, e-Cigarette/Vaping, Alcohol, Street Drugs Admission Risk Screen: Significant IndicatorsComplete CAGE: CAGE: Is this an injured patient at a Trauma Center ([facility]/[place]/[facility]/[place]): no Electronic Signatures: Lisette Junior (RN) (Signed 16-Oct-2019 22:23) Authored: Preferred Language, Advanced Directives, Family Violence Adult, Learning Assessment (Patient), Learning Assessment (Other Learner), Pressure Injury/TB/Substance, CAGE Last Updated: 16-Oct-2019 22:23 by Lisette Junior (RN) [facility] Triage - EDon 10-17-2019 Triage - ED Quick Triage: The patient and/or guardian verbally acknowledges placement for services into the following (when Urgent Care Service hours are operating):emergency department Are You no Have You Given In The Last 6 Weeksno Are You Currently Breastfeedingno Chart Review: CHIEF COMPLAINT LUZ MTZ is a Female patient with a chief complaint of syncope (PT TO ED WITH C/O I HAVE BEEN FEELING DIZZY SINCE 3-4PM, WENT TO WORK, BUT CAME HOME EARLY,, AND I GOT A SHOW A SHOWER, AND PASSED OUT, I THINK AROUND 1999 AND HIT MY FOREHEAD ON THE SHOWER PT C/O STILL FEELING DIZZY.). Triage Date/Time: 16-Oct-2019 22:00 Pain Rating (0-10): 7 = Severe Pain location: HEAD Vital Signs: Temperature: 99.3F ( 37.3C) taken oral Blood Pressure: 147/78 Mean: Heart Rate: 101 Respiratory Rate: 18 Pulse Oximetry: 99% on room air, no respiratory support. Height: 5 feet 1.00 inches. 154.9 CM Weight: 157.0 pounds. Calculated 71.2 kg. (scale measurement) Calculated BMI (kg/m2): 29.674 Calculated BSA (m2) 1.75 [place] Coma Scale: Best Eye Response: (E4) spontaneous Best Motor Response: (M6) obeys commands Best Verbal Response: (V5) oriented Amador Score: 15 Cough lasting greater than 3 weeks: no Patient immunocompromised related to: N/A Travel outside of [facility]: no Allergies: yes Last menstrual period: 04-Oct-2019 Patient has homicidal thoughts: no WALT: 3 Risk Screens Suicide Risk Screen In the Past Month: Have you wished you were or wished you could go to sleep and not wake up no In the Past Month: Have you had any actual thoughts of killing yourself no In Your Lifetime: Have you ever done anything, started to do anything, or prepared to do anything to end your life no Hickman Fall Scale Screening Has the patient fallen before (or is the patient in the ED as a result of a fall) has had a fall Does the patient have an impaired gait does not have impaired gait Is the patient cognitively impaired not cognitively impaired Hickman Fall Scale History of falling (immediate or previous) yes (25) Secondary Diagnosis yes (15) Intravenous Therapy/ Heparin/Saline Lock no (0 Gait/Transferring normal/bedrest/wheelc hair (0) Ambulatory Aids none/bedrest/nurse assist (0) Mental Status oriented to own ability (0) Hickman Fall Risk Score: 40 Interventions: Hickman Fall Interventions: *patient oriented to surroundings and call system, * patient/family falls education completed and documented, *patients fall status communicated during bedside handoff, *whiteboard updated, *mode of toileting discussed with patient, *bed in low position with brakes locked, *call light in reach, * non-skid footwear and *LOW INTERVENTIONS PLUS: * falls risk band/sticker applied to patient, *yellow non-skid footwear, *instruct to call for assistance before getting out of bed, *bed/chair/bedside commode/toilet alarms, *sensory devices/ambulatory aides available and in reach, *medications reviewed for potential side effects and care planning. PAIN Pain Scale Used: KAUSHIK Pain Assessment: head and aching Pain Rating (0-10): 7 = Severe ARRIVAL INFORMATION Means of Arrival: Ambulatory Mode of Arrival: private vehicle Arrival From: home Accompanied By: self and spouse/significant other Language: Spoken Language Preferred: [place] Reading Language Preferred: [place] [employer] Foreign Language Teacher Requested: no screedman/laborer was requested MDRO: History of MDRO: no Present on Arrival: Device Present on Arrival to ED: no PRIMARY ASSESSMENT LUZ MTZ's primary assessment is Within Normal Limits. The airway is open and patent. Breathing spontaneous and unlabored with clear breath sounds bilaterally. Circulation is normal with good peripheral pulses. Skin is warm and dry and color is normal for race. PAST MEDICAL HISTORY Immunization History: Last Known Tetanus Immunization: Unknown TRAVEL HISTORY Travel Exposure History: NO travel to International locations in the past 30 days Past Medical History: Past Medical History Reviewedyes KIDNEY REFLUX: Past Medical History, Active Electronic Signatures: Lisette Junior (RN) (Signed 16-Oct-2019 22:22) Authored: Triage, Past Medical History Last Updated: 16-Oct-2019 22:22 by Lisette Junior (RN) Normal [facility] UA MICROSCOPICon 10-17-2019 BACTERIA 1+ /HPF Abnormal [facility] Comment on above: Performed By: #### U AMIC #### [place] [address] MUCUS 1+ /LPF Normal [facility] Comment on above: Performed By: #### U AMIC #### [place] [address] RBC (Bld) [#/Vol] 0-5 Normal 0-5 [facility] Comment on above: Performed By: #### U AMIC #### [place] [address] SQUAMOUS EPITH. CELLS 1+ /HPF Normal [facility] Comment on above: Performed By: #### U AMIC #### [place] [address] TRANSITIONAL EPITH.CELLS Negative Normal [facility] Comment on above: Performed By: #### U AMIC #### [place] [address] WBC (Bld) [#/Vol] 5-20 Abnormal 0-5 [facility] Comment on above: Performed By: #### U AMIC #### [place] [address] URINALYSISon 10-17-2019 Appearance (U) CLEAR Normal CLEAR [facility] Comment on above: Result Comment: This is a corrected result. Previous value was HAZY, verified at 10/17/2019 01:39 Performed By: #### U A #### [address] [address] Color (U) YELLOW Normal STRAW,YELLOW [facility] Comment on above: Result Comment: This is a corrected result. Previous value was Red, verified at 10/17/2019 01:39 Performed By: #### U A #### [address] [address] Bilirubin (U) [Mass/Vol] Negative Normal NEGATIVE [facility] Comment on above: Performed By: #### U A #### [place] [id number] BLOOD SMALL(1+) Abnormal NEGATIVE [facility] Comment on above: Performed By: #### U A #### [place] [id number] Glucose [Mass/Vol] Negative Normal NEGATIVE [facility] Comment on above: Performed By: #### U A #### [place] [address] Ketones Ql (U) Negative Normal NEGATIVE [facility] Comment on above: Performed By: #### U A #### [place] [address] Leukocyte esterase Test strip Ql (U) TRACE Abnormal NEGATIVE [facility] Comment on above: Performed By: #### U A #### [address] [address] Nitrite Ql (U) Negative Normal NEGATIVE [facility] Comment on above: Performed By: #### U A #### [place] [id number] pH (Bld) 7.0 Normal 5.0 - 8.0 [facility] Comment on above: Performed By: #### U A #### [place] [id number] Protein (U) [Mass/Vol] Negative Normal NEGATIVE [facility] Comment on above: Performed By: #### U A #### [place] [id number] Specific gravity (U) [Rel density] 1.021 Normal 1.005 - 1.035 [facility] Comment on above: Performed By: #### U A #### [address] [address] Urobilinogen Qn (U) <2.0 Normal 0.0 - 1.9 [facility] Comment on above: Performed By: #### U A #### [address] [address] URINE CULTURE,BACTERIALon URINE CULTURE,BACTERIAL TEST URINE CULTURE,BACTERIAL WAS CANCELLED, 10/19/2019 16:21 PATIENT DISCHARGED. PATIENT: LUZ MTZ LOCATION: [facility]#: [id number] : 89 AGE: SEX: F ORDERED BY: RASHMI FERRERA SOURCE: URINE COLLECTED: 10/17/19 02:24 ANTIBIOTICS AT JAMIE.: RECEIVED : SITE: Clean Catch/Voided R E S U L T S URINE CULTURE,BACTERIAL CANCELLED 10/19/19 16:21 Normal [facility] Comment on above: Performed By: #### U [facility] #### [facility] [address] [place] [address] XR Foot 3+ Views Righton XR Foot 3+ Views Right Exam Date/Time: 04/28/2019 13:58 EDT Reason for Exam: Pain, Traumatic Report STUDY: XR Foot 3+ Views Right;; 04/28/2019 1:58 pm INDICATION: Pain, Traumatic. COMPARISON: None. ACCESSION NUMBER(S): [id number] ORDERING CLINICIAN: Alex Grubbs FINDINGS: No acute fracture or malalignment. No radiopaque foreign body. IMPRESSION: No acute osseous abnormality FINAL REPORT Dictated: 04/28/2019 2:30 pm Nancy Mills MD Signed (Electronic Signature): 04/28/2019 2:30 pm Signed by: Nancy Mills MD Technologist: JOHNSON Normal [facility] ABO/Rh Echoon 12-25-2018 ABO/Rh E Interp... Positive [facility] Comment on above: Performed By: #### 2 [id number] #### [facility] [address] [place] [address] BhCG Quanton 12-25-2018 Beta hCG Qnt <0.6 Normal 0.0-2.9 [facility] Comment on above: Performed By: #### 2 [id number] #### [facility] [address] [place] [address] UA Completeon 12-25-2018 Color (U) Yellow Normal Yellow [facility] Comment on above: Performed By: #### 2 697239 #### [facility] [address] [place] [address] Glucose (U) [Mass/Vol] Negative Normal Negative [facility] Comment on above: Performed By: #### 2 575608 #### [facility] [place] [address] Ketones Ql (U) Negative Normal Negative [facility] Comment on above: Performed By: #### 2 [id number] #### [facility] [address] [place] [address] RBC (U) [#/Vol] /uL Abnormal 0-3 [facility] Comment on above: Performed By: #### 2 [id number] #### [facility] [address] [place] [address] UA Blood 3+ Normal Negative [facility] Comment on above: Performed By: #### 2 859848 #### [facility] [address] [place] [address] UA Bacteria Trace Abnormal None [facility] Comment on above: Performed By: #### 2 208639 #### [facility] [address] [place] [address] UA Clarity Clear Normal Clear [facility] Comment on above: Performed By: #### 2 562378 #### [facility] [address] [place] [address] UA Leuk Est Negative Normal Negative [facility] Comment on above: Performed By: #### 2 851920 #### [facility] [address] [place] [address] UA Mucous Trace Abnormal Trace [facility] Comment on above: Performed By: #### 2 771523 #### [facility] [address] [place] [address] UA Nitrite Negative Normal Negative [facility] Comment on above: Performed By: #### 2 554296 #### [facility] [address] [place] [address] UA pH 8.0 Normal 4.6-8.0 [facility] Comment on above: Performed By: #### 2 259820 #### [facility] [address] [place] [address] UA Protein Negative Normal Negative [facility] Comment on above: Performed By: #### 2 130472 #### [facility] [address] [place] [address] UA Spec Grav 1.012 Normal 1.003-1.030 [facility] Comment on above: Performed By: #### 2 000129 #### [facility] [address] [place] [address] UA Squam Epithelial 0-5 Normal 0-5 [facility] Comment on above: Performed By: #### 2 232127 #### [facility] [address] [place] [address] UA Urobilinogen Negative Normal [facility] Comment on above: Result Comment: Due to a manufacturing issue, low positive urobilinogen results may be fasely positive. Correlate with urine bilirubin and additional clinical/laboratory findings to assess the risk of hemolytic anemia or liver disease. If clinically indicated, repeat testing with an alternate method is available by contacting the laboratory within 24 hours. Performed By: #### 2 [id number] #### [facility] [address] [place] [address] UA WBC 5-10 Abnormal 0-5 [facility] Comment on above: Performed By: #### 2 051297 #### [facility] [address] [place] [address] Urobilinogen Qn (U) Negative Normal Negative [facility] Comment on above: Performed By: #### 2 362195 #### [facility] [address] [place] [address] C Urineon 09-05-2018 C Urine Final Report: Light growth of Normal skin den isolated Normal [facility] Comment on above: Performed By: #### 2 776127 #### [facility] [address] [place] [address] .Manual Abson 09-03-2018 Basophil Abs Man 0.0 10x3/ Normal 0.0-0.[address] [facility] Comment on above: Order Comment: Order Added by Discern Expert. Performed By: #### 3 [id number] #### [facility] [address] [place] [address] Eos Abs Man 0.0 10x3/ Normal 0.0-0.5 [facility] Comment on above: Order Comment: Order Added by Discern Expert. Performed By: #### 3 [id number] #### [facility] [address] [place] [address] Lymph Abs Man 0.5 10x3/ Low 1.2-3.4 [facility] Comment on above: Order Comment: Order Added by Discern Expert. Performed By: #### 3 [id number] #### [facility] [address] [place] [address] Foard Abs Man 0.4 10x3/ Normal 0.0-0.7 [facility] Comment on above: Order Comment: Order Added by Discern Expert. Performed By: #### 3 [id number] #### [facility] [address] [place] [address] Segs Abs Man 7.8 10x3/ High 1.4-6.5 [facility] Comment on above: Order Comment: Order Added by Discern Expert. Performed By: #### 3 [id number] #### [facility] [address] [place] [address] BMPon 09-03-2018 Anion gap [Moles/Vol] 14 mmol/L Normal 10-20 [facility] Comment on above: Performed By: #### 2 957181 #### [facility] [address] [place] [address] Calcium [Mass/Vol] 8.8 mg/dL Normal 8.5-10.7 [facility] Comment on above: Performed By: #### 2 985578 #### [facility] [place] [address] Chloride [Moles/Vol] 102 mmol/L Normal 98-107 [facility] Comment on above: Performed By: #### 2 567080 #### [facility] [address] [place] [address] CO2 [Moles/Vol] 24.0 mmol/L Normal 21.0-32.[address] [facility] Comment on above: Performed By: #### 2 093038 #### [facility] [address] [place] [address] Creatinine [Mass/Vol] 0.8 mg/dL Normal 0.5-1.1 [facility] Comment on above: Performed By: #### 2 856253 #### [facility] [address] [place] [address] Glucose [Mass/Vol] 100 mg/dL High 70-99 [facility] Comment on above: Performed By: #### 2 503609 #### [facility] [address] [place] [address] Potassium [Moles/Vol] 3.2 mmol/L Low 3.5-5.3 [facility] Comment on above: Performed By: #### 2 304556 #### [facility] [address] [place] [address] Sodium [Moles/Vol] 137 mmol/L Normal 136-145 [facility] Comment on above: Performed By: #### 2 133806 #### [facility] [address] [place] [address] Urea nitrogen [Mass/Vol] 11 mg/dL Normal 6-23 [facility] Comment on above: Performed By: #### 2 [id number] #### [facility] [address] [place] [address] Urea nitrogen/Creatinine [Mass ratio] 13.8 ratio Normal 5.4-30.0 [facility] Comment on above: Performed By: #### 2 [id number] #### [facility] [address] [place] [address] CBC w/ Auto Diffon 8 Erythrocyte distribution width (RBC) [Ratio] 13.0 % Normal 11.5-14.5 [facility] Comment on above: Performed By: #### 2 [id number] #### [facility] [address] [place] [address] Hematocrit (Bld) [Volume fraction] 37.2 % Normal 36.0-48.0 [facility] Comment on above: Performed By: #### 2 [id number] #### [facility] [address] [place] [address] Hemoglobin (Bld) [Mass/Vol] 12.7 g/dL Normal 12.0-16.0 [facility] Comment on above: Performed By: #### 2 [id number] #### [facility] [address] [place] [address] MCH (RBC) [Entitic mass] 31.2 pg High 27.0-31.0 [facility] Comment on above: Performed By: #### 2 [id number] #### [facility] [employer] [address] [place] [address] MCHC (RBC) [Mass/Vol] 34.2 g/dL Normal 33.0-37.0 [facility] Comment on above: Performed By: #### 2 988401 #### [facility] [employer] [address] [place] [address] MCV (RBC) [Entitic vol] 91.4 fL Normal 78.0-100.0 [facility] Comment on above: Performed By: #### 2 [id number] #### [facility] [employer] [address] [place] [address] Platelet mean volume (Bld) [Entitic vol] 8.2 fL Normal 7.4-11.0 [facility] Comment on above: Performed By: #### 2 [id number] #### [facility] [employer] [address] [place] [address] Platelets (Bld) [#/Vol] 201 E3/mcL Normal 130-400 [facility] Comment on above: Performed By: #### 2 [id number] #### [facility] [employer] [address] [place] [address] RBC (Bld) [#/Vol] 4.07 E6/mcL Normal 3.90-5.40 [facility] Comment on above: Performed By: #### 2 [id number] #### [facility]onH[facility] [address] [place] [address] WBC (Bld) [#/Vol] 8.9 E3/mcL Normal 3.6-11.[address] [facility] Comment on above: Performed By: #### 2 [id number] #### [facility]onH[facility] [address] [place] [address] CT Abdomen/Pelvis w/ Contras ton 09-03-2018 CT Abdomen/Pelvis w/ Contrast Exam Date/Time: 09/03/2018 21:35 EST Reason for Exam: Pain Report STUDY: CT Abdomen/Pelvis w/ Contrast; 09/03/2018 9:35 pm INDICATION: Pain. Pain COMPARISON: No comparison available ACCESSION NUMBER(S): [id number] ORDERING CLINICIAN: Miles Horn TECHNIQUE: CT of [...] is no evidence for abdominal aortic aneurysm PERITONEUM/RETROPERIT ONEUM/LYMPH NODES: No retroperitoneal mass lesions or lymphadenopathy. [...] pm Signed by: Joaquin Lobo MD Technologist: JOHN, Paul [facility] Hep Func Panelon 09-03-2018 Albumin [Mass/Vol] 4.3 g/dL Normal 3.4-5.0 [facility] Comment on above: Performed By: #### 2 [id number] #### [facility] [id number] [place] [address] Albumin/Globulin [Mass ratio] 1.7 {ratio} Normal 1.1-1.9 [facility] Comment on above: Performed By: #### 2 624503 #### [facility] [address] [place] [address] Alk Phos 59 Int._Unit/L Normal 33-139 [facility] Comment on above: Performed By: #### 2 [id number] #### [facility] [address] [place] [address] ALT [Catalytic activity/Vol] 18 Int._Unit/L Normal 7-45 [facility] Comment on above: Performed By: #### 2 [id number] #### [facility] [address] [place] [address] AST [Catalytic activity/Vol] 18 Int._Unit/L Normal 9-39 [facility] Comment on above: Performed By: #### 2 [id number] #### [facility] [address] [place] [address] Bili Direct 0.16 mg/dL Normal 0.00-0.30 [facility] Comment on above: Performed By: #### 2 754793 #### [facility] [address] [place] [address] Bili Indirect 0.7 Normal [facility] Comment on above: Performed By: #### 2 230602 #### [facility] [address] [place] [address] Bili Total 0.9 mg/dL Normal 0.0-1.2 [facility] Comment on above: Performed By: #### 2 857117 #### [facility] [address] [place] [address] Globulin (S) [Mass/Vol] 3.0 g/dL Normal 2.0-4.0 [facility] Comment on above: Performed By: #### 2 198616 #### [facility] [id number] [place] [address] Protein [Mass/Vol] 6.8 g/dL Normal 6.4-8.2 [facility] Comment on above: Performed By: #### 2 487474 #### [facility] [employer] [address] [place] [address] Influenza A&B Agon 8 Influenzae A Ag Negative Normal Negative [facility] Comment on above: Performed By: #### 2 560213 #### [facility] [address] [address] Influenzae B Ag Negative Normal Negative [facility] Comment on above: Performed By: #### 2 154654 #### [facility] [address] [address] Lactic Acidon 09-03-2018 Lactate [Moles/Vol] 0.8 mmol/L Normal 0.4-2.0 [facility] Comment on above: Performed By: #### 2 294278 #### [facility]OBYTiny [address]keon[address] [address] Lipase Levelon 09-03-2018 Lipase Lvl 12 Int._Unit/L Normal 9-82 [facility] Comment on above: Performed By: #### 2 192934 #### [facility]OBYTiny [address]keon[address] [address] Manual Diffon 09-03-2018 Band form neutrophils/100 WBC (Bld) 1 Normal 0-1 [facility] Comment on above: Order Comment: Order Added by Discern Expert. Performed By: #### 2 [id number] #### [facility]keonH[facility] [address] [place] [address] Basophil Man 0 % Normal 0-1 [facility] Comment on above: Order Comment: Order Added by Discern Expert. Performed By: #### 2 142859 #### [facility] [address] [place] [address] Eosinophils/100 WBC (Bld) 0 % Normal 0-5 [facility] Comment on above: Order Comment: Order Added by Discern Expert. Performed By: #### 2 984505 #### [facility]on[facility] [address] [place] [address] Lymphocytes/100 WBC (Bld) 6 % Low 14-48 [facility] Comment on above: Order Comment: Order Added by Discern Expert. Performed By: #### 2 278651 #### [facility] [address] [place] [address] Monocyte Man 5 % Normal 1-11 [facility] Comment on above: Order Comment: Order Added by Discern Expert. Performed By: #### 2 [id number] #### [facility]on[facility] [address] [place] [address] RBC morphology finding Nom (Bld) NORMAL Normal [facility] Comment on above: Order Comment: Order Added by Discern Expert. Performed By: #### 2 190920 #### [facility] [address] [place] [address] Segs Man 88 % High 37-75 [facility] Comment on above: Order Comment: Order Added by Discern Expert. Performed By: #### 2 [id number] #### [facility]on[facility] [address] [place] [address] TSHon 09-03-2018 TSH Qn 0.89 mcIU/mL Normal 0.30-5.60 [facility] Comment on above: Order Comment: With T4fr Reflex Performed By: #### 2 815735 #### [facility] [address] [place] [address] U BhCG Qlton 09-03-2018 HCG.beta subunit Qn Negative Normal Neg [facility] Comment on above: Performed By: #### 2 599277 #### [facility] [address] [place] [address] UA Completeon 09-03-2018 Color (U) Yellow Normal Yellow [facility] Comment on above: Order Comment: Strai ght Cath as needed Performed By: #### 2 [id number] #### [facility] [address] [place] [address] Glucose (U) [Mass/Vol] Negative Normal Negative [facility] Comment on above: Order Comment: Strai ght Cath as needed Performed By: #### 2 [id number] #### [facility] [address] [place] [address] Ketones Ql (U) 1+ Abnormal Negative [facility] Comment on above: Order Comment: Strai ght Cath as needed Performed By: #### 2 848453 #### [facility] [address] [place] [address] RBC (U) [#/Vol] 10-20 Abnormal 0-3 [facility] Comment on above: Order Comment: Strai ght Cath as needed Performed By: #### 2 [id number] #### [facility] [address] [place] [address] UA Blood 1+ Abnormal Negative [facility] Comment on above: Order Comment: Strai ght Cath as needed Performed By: #### 2 [id number] #### [facility] [address] [place] [address] UA Ascorbic Acid 40 mg/dL High <=[address] [facility] Comment on above: Order Comment: Strai ght Cath as needed Performed By: #### 2 554088 #### [facility] [address] [place] [address] UA Clarity SltCloudy Abnormal Clear [facility] Comment on above: Order Comment: Strai ght Cath as needed Performed By: #### 2 [id number] #### [facility] [address] [place] [address] UA Leuk Est 1+ Abnormal Negative [facility] Comment on above: Order Comment: Strai ght Cath as needed Performed By: #### 2 [id number] #### [facility] [address] [place] [address] UA Mucous Trace Abnormal Trace [facility] Comment on above: Order Comment: Strai ght Cath as needed Performed By: #### 2 509825 #### [facility] [address] [place] [address] UA Nitrite Negative Normal Negative [facility] Comment on above: Order Comment: Strai ght Cath as needed Performed By: #### 2 736466 #### [facility] [address] [place] [address] UA pH 7.0 Normal 4.6-8.0 [facility] Comment on above: Order Comment: Strai ght Cath as needed Performed By: #### 2 361587 #### [facility] [address] [place] [address] UA Protein Negative Normal Negative [facility] Comment on above: Order Comment: Strai ght Cath as needed Performed By: #### 2 851126 #### [facility] [address] [place] [address] UA Spec Grav 1.015 Normal 1.003-1.030 [facility] Comment on above: Order Comment: Strai ght Cath as needed Performed By: #### 2 [id number] #### [facility] [address] [place] [address] UA Squam Epithelial 0-5 Normal 0-5 [facility] Comment on above: Order Comment: Strai ght Cath as needed Performed By: #### 2 [id number] #### [facility] [address] [place] [address] UA Urobilinogen Negative Normal [facility] Comment on above: Order Comment: Strai ght Cath as needed Result Comment: Due to a manufacturing issue, low positive urobilinogen results may be fasely positive. Correlate with urine bilirubin and additional clinical/laboratory findings to assess the risk of hemolytic anemia or liver disease. If clinically indicated, repeat testing with an alternate method is available by contacting the laboratory within 24 hours. Performed By: #### 2 [id number] #### [facility] [address] [place] [address] UA WBC 20-50 Abnormal 0-5 [facility] Comment on above: Order Comment: Strai ght Cath as needed Performed By: #### 2 [id number] #### [facility] [address] [place] [address] Urobilinogen Qn (U) Negative Normal Negative [facility] Comment on above: Order Comment: Strai ght Cath as needed Performed By: #### 2 [id number] #### [facility] [address] [place] [address] eGFRon 09-03-2018 GFR/1.73 sq M predicted among non-blacks MDRD (S/P/Bld) [Vol rate/Area] mL/min/{1.73_m2} Normal [facility] Comment on above: Order Comment: Order added by Discern Expert. Performed By: #### 1 [id number] #### [facility] [address] [place] [address] zzplt morphon 09-03-2018 Platelet morphology finding Nom (Bld) NORMAL Normal [facility] Comment on above: Performed By: #### 9 [id number] #### [facility] [address] [place] [address] Platelets (Bld) [#/Vol] NORMAL Normal [facility] Comment on above: Performed By: #### 9 [id number] #### [facility] [address] [place] [address] Vital Signs Date Time Vital Sign Value Performing Clinician Facility 04-02-2023 16:00-0400 Body temperature 97.88 [degF] SUNIL GRAHAM MD [facility] 04-02-2023 16:00-0400 Diastolic Blood Pressure Non-Invasive 66 1 SUNIL GRAHAM MD [facility] 04-02-2023 16:00-0400 Heart rate 77 /min SUNIL GRAHAM MD [facility] 04-02-2023 16:00-0400 Respiratory rate 18 /min SUNIL GRAHAM MD [facility] 04-02-2023 16:00-0400 Systolic Blood Pressure Non-Invasive 110 1 SUNIL GRAHAM MD [facility] 04-02-2023 10:00-0400 Body temperature 97.7 [degF] SUNIL GRAHAM MD [facility] 04-02-2023 10:00-0400 Diastolic Blood Pressure Non-Invasive 48 1 SUNIL GRAHAM MD [facility] 04-02-2023 10:00-0400 Heart rate 81 /min SUNIL GRAHAM MD [facility] 04-02-2023 10:00-0400 Systolic Blood Pressure Non-Invasive 97 1 SUNIL GRAHAM MD [facility] 04-02-2023 00:31-0400 Body temperature 97.88 [degF] SUNIL GRAHAM MD [facility] 04-02-2023 00:31-0400 Diastolic Blood Pressure Non-Invasive 59 1 SUNIL GRAHAM MD [facility] 04-02-2023 00:31-0400 Heart rate 68 /min SUNIL GRAHAM MD [facility] 04-02-2023 00:31-0400 Reason For Taking VItal Signs SUNIL GRAHAM MD [facility] 04-02-2023 00:31-0400 Respiratory rate 16 /min SUNIL GRAHAM MD [facility] 04-02-2023 00:31-0400 Systolic Blood Pressure Non-Invasive 113 1 SUNIL GRAHAM MD [facility] 04-01-2023 16:20-0400 Reason For Taking VItal Signs SUNIL GRAHAM MD [facility] 04-01-2023 08:41-0400 Reason For Taking VItal Signs SUNIL GRAHAM MD [facility] 03-31-2023 23:30-0400 Body temperature 97.88 [degF] SUNIL GRAHAM MD [facility] 03-31-2023 15:25-0400 Body temperature 98.42 [degF] SUNIL GRAHAM MD [facility] 03-31-2023 08:36-0400 Body temperature 98.24 [degF] SUNIL GRAHAM MD [facility] 03-30-2023 07:49-0400 Body height 155 cm SUNIL GRHAAM MD [facility] 03-30-2023 07:49-0400 Body weight 78 kg SUNIL GRAHAM MD [facility] 03-30-2023 07:49-0400 Body weight 32.47 kg/m2 SUNIL GRAHAM MD [facility] 03-07-2023 20:03-0400 Body temperature 98.6 [degF] MARTINEZ NÚÑEZ MD [facility] 03-07-2023 20:03-0400 Diastolic Blood Pressure Non-Invasive 69 1 MARTINEZ NÚÑEZ MD [facility] 03-07-2023 20:03-0400 Heart rate 91 /min MARTINEZ NÚÑEZ MD [facility] 03-07-2023 20:03-0400 Respiratory rate 18 /min MARTINEZ NÚÑEZ MD [facility] 03-07-2023 20:03-0400 Systolic Blood Pressure Non-Invasive 115 1 MARTINEZ NÚÑEZ MD [facility] 03-07-2023 20:02-0400 Body height 155 cm MARTINEZ NÚÑEZ MD [facility] 03-07-2023 20:02-0400 Body weight 79.5 kg MARTINEZ NÚÑEZ MD [facility] 03-07-2023 20:02-0400 Body weight 33.09 kg/m2 MARTINEZ NÚÑEZ MD [facility] 03-06-2023 17:39-0400 Body temperature 98.06 [degF] MARTINEZ NÚÑEZ MD [facility] 03-06-2023 17:39-0400 Diastolic Blood Pressure Non-Invasive 76 1 MARTINEZ NÚÑEZ MD [facility] 03-06-2023 17:39-0400 Heart rate 125 /min MARTINEZ NÚÑEZ MD [facility] 03-06-2023 17:39-0400 Systolic Blood Pressure Non-Invasive 113 1 MARTINEZ NÚÑEZ MD [facility] 03-06-2023 17:37-0400 Body height 155 cm MARTINEZ NÚÑEZ MD [facility] 03-06-2023 17:37-0400 Body weight 79.5 kg MARTINEZ NÚÑEZ MD [facility] 03-06-2023 17:37-0400 Body weight 33.09 kg/m2 MARTINEZ NÚÑEZ MD [facility] 01-26-2023 03:20-0400 Diastolic Blood Pressure Non-Invasive 67 1 MARTINEZ NÚÑEZ MD [facility] 01-26-2023 03:20-0400 Heart rate 107 /min MARTINEZ NÚÑEZ MD [facility] 01-26-2023 03:20-0400 Systolic Blood Pressure Non-Invasive 113 1 MARTINEZ NÚÑEZ MD [facility] 01-26-2023 02:34-0400 Diastolic Blood Pressure Non-Invasive 71 1 MARTINEZ NÚÑEZ MD [facility] 01-26-2023 02:34-0400 Heart rate 95 /min MARTINEZ NÚÑEZ MD [facility] 01-26-2023 02:34-0400 Systolic Blood Pressure Non-Invasive 116 1 MARTINEZ NÚÑEZ MD [facility] 01-26-2023 02:15-0400 Body temperature 98.24 [degF] MARTINEZ NÚÑEZ MD [facility] 01-26-2023 01:46-0400 Diastolic Blood Pressure Non-Invasive 42 1 MARTINEZ NÚÑEZ MD [facility] 01-26-2023 01:46-0400 Heart rate 101 /min MARTINEZ NÚÑEZ MD [facility] 01-26-2023 01:46-0400 Systolic Blood Pressure Non-Invasive 114 1 MARTINEZ NÚÑEZ MD [facility] 01-26-2023 01:16-0400 Respiratory rate 16 /min MARTINEZ NÚÑEZ MD [facility] 01-26-2023 00:59-0400 Body height 155 cm MARTINEZ NÚÑEZ MD [facility] 01-26-2023 00:59-0400 Body weight 77.3 kg MARTINEZ NÚÑEZ MD [facility] 01-26-2023 00:59-0400 Body weight 32.17 kg/m2 MARTINEZ NÚÑEZ MD [facility] 11-18-2022 12:08-0500 Body temperature 98.24 [degF] SUNIL GRAHAM MD [facility] 11-18-2022 12:08-0500 Diastolic Blood Pressure Non-Invasive 82 1 SUNIL GRAHAM MD [facility] 11-18-2022 12:08-0500 Heart rate 108 /min SUNIL GRAHAM MD [facility] 11-18-2022 12:08-0500 Respiratory rate 18 /min SUNIL GRAHAM MD [facility] 11-18-2022 12:08-0500 Systolic Blood Pressure Non-Invasive 103 1 SUNIL GRAHAM MD [facility] 10-14-2022 11:01-0500 Body weight 80.06 kg Gretel Quintana MD Work Phone: [facility] 10-14-2022 11:01-0500 Diastolic blood pressure 56 mm[Hg] Gretel Quintana MD Work Phone: [facility] 10-14-2022 11:01-0500 Respiratory rate 18 /min Gretel Quintana MD Work Phone: [facility] 10-14-2022 11:01-0500 Systolic blood pressure 110 mm[Hg] Gretel Quintana MD Work Phone: [facility] 08-19-2022 13:06-0500 Body weight 85.5 kg Braulio Hollingsworth MD Work Phone: [facility] 08-19-2022 13:06-0500 Diastolic blood pressure 82 mm[Hg] Braulio Hollingsworth MD Work Phone: [facility] 08-19-2022 13:06-0500 Systolic blood pressure 102 mm[Hg] Braulio Hollingsworth MD Work Phone: [facility] 08-09-2022 18:09-0400 Diastolic blood pressure 74 mm[Hg] No Primary Care Physician [facility] Work Phone: 08-09-2022 18:09-0400 Heart rate 107 /min No Primary Care Physician [facility] Work Phone: 08-09-2022 18:09-0400 Respiratory rate 18 /min No Primary Care Physician [facility] Work Phone: 08-09-2022 18:09-0400 SaO2% (BldA) [Mass fraction] 94 % No Primary Care Physician [facility] Work Phone: 08-09-2022 18:09-0400 Systolic blood pressure 120 mm[Hg] No Primary Care Physician [facility] Work Phone: 08-09-2022 13:51-0400 Body height 154.94 cm No Primary Care Physician [facility] Work Phone: 08-09-2022 13:51-0400 Body mass index (BMI) [Ratio] 35.9 kg/m2 No Primary Care Physician [facility] Work Phone: 08-09-2022 13:51-0400 Body temperature 98.2 [degF] No Primary Care Physician [facility] Work Phone: 08-09-2022 13:51-0400 Body weight 86.4 kg No Primary Care Physician [facility] Work Phone: 08-04-2022 13:54-0400 Diastolic blood pressure 76 mm[Hg] Melania [place] MD Work Phone: [facility] 08-04-2022 13:54-0400 Heart rate 100 /min Melania Mitchell MD Work Phone: [facility] 08-04-2022 13:54-0400 Respiratory rate 16 /min Melania Mitchell MD Work Phone: [facility] 08-04-2022 13:54-0400 SaO2% (BldA) [Mass fraction] 98 % Melania [place] MD Work Phone: [facility] 08-04-2022 13:54-0400 Systolic blood pressure 102 mm[Hg] Melania [place] MD Work Phone: [facility] 08-04-2022 10:48-0400 Body height 154.9 cm Melania [place] MD Work Phone: [facility] 08-04-2022 10:48-0400 Body mass index (BMI) [Ratio] 30.23 kg/m2 Melania [place] MD Work Phone: [facility] 08-04-2022 10:48-0400 Body temperature 98.2 [degF] Melania Mitchell MD Work Phone: [facility] 08-04-2022 10:48-0400 Body weight 72.58 kg Melania Mitchell MD Work Phone: [facility] 07-08-2022 15:30-0400 Body temperature 98.2 [degF] No Primary Care Physician [facility] Work Phone: 07-08-2022 15:30-0400 Diastolic blood pressure 78 mm[Hg] No Primary Care Physician [facility] Work Phone: 07-08-2022 15:30-0400 Heart rate 89 /min No Primary Care Physician [facility] Work Phone: 07-08-2022 15:30-0400 Respiratory rate 14 /min No Primary Care Physician [facility] Work Phone: 07-08-2022 15:30-0400 SaO2% (BldA) [Mass fraction] 98 % No Primary Care Physician [facility] Work Phone: 07-08-2022 15:30-0400 Systolic blood pressure 124 mm[Hg] No Primary Care Physician [facility] Work Phone: 06-30-2022 00:36-0400 Diastolic blood pressure 76 mm[Hg] No Primary Care Physician [facility] Work Phone: 06-30-2022 00:36-0400 Heart rate 79 /min No Primary Care Physician [facility] Work Phone: 06-30-2022 00:36-0400 Respiratory rate 16 /min No Primary Care Physician [facility] Work Phone: 06-30-2022 00:36-0400 SaO2% (BldA) [Mass fraction] 96 % No Primary Care Physician [facility] Work Phone: 06-30-2022 00:36-0400 Systolic blood pressure 113 mm[Hg] No Primary Care Physician [facility] Work Phone: 06-29-2022 23:48-0400 Body temperature 98.9 [degF] No Primary Care Physician [facility] Work Phone: 06-29-2022 18:00-0400 Body mass index (BMI) [Ratio] 33 kg/m2 No Primary Care Physician [facility] Work Phone: 06-29-2022 18:00-0400 Body weight 79.37 kg No Primary Care Physician [facility] Work Phone: Encounters Encounter Date Encounter Type Care Provider Facility Start: 08-01-2025 ambulatory No Primary Care Physici an Facility:[facility] Start: 07-09-2025 End: 07-09-2025 ambulatory No Primary Care Physician Facility:[facility] Start: 07-09-2025 End: 07-09-2025 ambulatory No Primary Care Physician Facility:[facility] Start: 07-03-2025 End: 07-03-2025 ambulatory No Primary Care Physician Facility:[facility] Start: 07-03-2025 End: 07-03-2025 ambulatory No Primary Care Physician Facility:[facility] Start: 06-26-2025 End: 06-26-2025 ambulatory RAMA Dinesh [facility] Start: 06-20-2025 End: 06-20-2025 ambulatory [facility] Dinesh [facility] Start: 06-06-2025 End: 06-06-2025 ambulatory Rama Stuart Facility:[facility] Start: 05-30-2025 End: 05-30-2025 ambulatory No Primary Care Physician Facility:[facility] Start: 05-30-2025 End: 05-30-2025 ambulatory Rama Stuart Facility:[facility] Start: 05-14-2025 End: 05-14-2025 ambulatory Rama Stuart Facility:[facility] Start: 05-14-2025 End: 05-14-2025 ambulatory No Primary Care Physician Facility:[facility] Start: 05-07-2025 End: 05-07-2025 ambulatory No Primary Care Physician Facility:[facility] Start: 05-07-2025 End: 05-07-2025 ambulatory No Primary Care Physician Facility:[facility] Start: 04-09-2025 End: 04-09-2025 ambulatory No Primary Care Physician Facility:[facility] Start: 04-09-2025 End: 04-09-2025 ambulatory Remedios Jose ADMINISTRATIVE SERVICES MANAGER Facility:[facility] Start: 03-15-2025 End: 03-15-2025 ambulatory Remedios Jose ADMINISTRATIVE SERVICES MANAGER Facility:[facility] Start: 03-13-2025 End: 03-13-2025 ambulatory No Primary Care Physician Facility:[facility] Start: 03-13-2025 End: 03-13-2025 ambulatory Remedios [place] ADMINISTRATIVE SERVICES MANAGER Facility:[facility] Start: 01-02-2025 End: 01-02-2025 Emergency department patient visit Mendez Gardner Facility:[facility] Start: 08-03-2024 End: 08-18-2024 ambulatory KIRSTEN MAST 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 Facility:[facility] Start: 08-03-2024 End: 08-18-2024 Physical therapy management KIRSTEN MAST 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 [facility] Start: 02-18-2024 End: 02-19-2024 ambulatory KIRSTEN MAST 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 Facility:B Start: 02-18-2024 End: 02-18-2024 Patient encounter procedure KIRSTEN MAST 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 [facility] Start: 10-15-2023 End: 10-16-2023 ambulatory OSMAN TORRES PMHNP-BC Facility:B Start: 10-15-2023 End: 10-15-2023 Patient encounter procedure OSMAN TORRES PMHNP-BC [facility] Start: 03-30-2023 End: 04-02-2023 Evaluation and management of inpatient MARTINEZ NÚÑEZ MD Facility:B Start: 03-30-2023 End: 04-02-2023 Evaluation and management of inpatient SUNIL GRAHAM MD [facility] Start: 03-18-2023 End: 03-18-2023 ambulatory MARTINEZ NÚÑEZ MD Facility:B Start: 03-15-2023 End: 03-16-2023 ambulatory SUNIL GRAHAM MD Facility:B Start: 03-15-2023 End: 03-15-2023 Patient encounter procedure SUNIL GRAHAM MD [facility] Start: 03-09-2023 End: 03-14-2023 ambulatory LONG DICKERSON MD Facility:B Start: 03-09-2023 End: 03-10-2023 ambulatory LONG DICKERSON MD Facility:B Start: 03-09-2023 End: 03-13-2023 Outreach Lab LONG DICKERSON MD [facility] Start: 03-09-2023 End: 03-09-2023 Patient encounter procedure LONG DICKERSON MD [facility] Start: 03-07-2023 End: 03-07-2023 ambulatory MARTINEZ NÚÑEZ MD Facility:B Start: 03-07-2023 End: 03-07-2023 SAME DAY STAY MARTINEZ NÚÑEZ MD [facility] Start: 03-06-2023 End: 03-06-2023 ambulatory MARTINEZ NÚÑEZ MD Facility:B Start: 03-06-2023 End: 03-06-2023 SAME DAY STAY MARTINEZ NÚÑEZ MD [facility] Start: 01-26-2023 End: 01-26-2023 SAME DAY STAY MARTINEZ NÚÑEZ MD [facility] Start: 01-25-2023 End: 01-25-2023 Patient encounter procedure SUNIL GRAHAM MD [facility] Start: 01-19-2023 End: 01-19-2023 Patient encounter procedure SUNIL GRAHAM MD [facility] Start: 01-05-2023 End: 01-05-2023 Patient encounter procedure SUNIL GRAHAM MD [facility] Start: 12-03-2022 Refill Tad kirk DO Work Phone: [facility] Comment on above: Med Change Request Start: 11-18-2022 End: 11-18-2022 SAME DAY STAY SUNIL GRAHAM MD [facility] Start: 11-13-2022 End: 11-13-2022 Patient encounter procedure 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 [facility] Start: 10-29-2022 End: 10-29-2022 ambulatory CHEKO MCCLELLAND Facility:[facility] Start: 10-14-2022 End: 10-14-2022 ambulatory GRETEL QUINTANA Facility:[facility] Start: 10-14-2022 End: 10-14-2022 Patient encounter procedure Gretel Quintana MD Work Phone: Obstetrics/Gynecolog y Comment on above: Encounter for superv ision of normal first in second trimester (Primary Dx); Need for influenza vaccination; 15 weeks gestation of Start: 09-21-2022 End: 09-21-2022 ambulatory FLORENCE HEWITT Facility:[facility] Start: 09-17-2022 End: 09-17-2022 ambulatory BRAULIO HOLLINGSWORTH Facility:[facility] Start: 08-21-2022 ambulatory Braulio Hollingsworth MD Work Phone: Obstetrics/Gynecolog y Comment on above: Luz oliveira Start: 08-19-2022 End: 08-19-2022 ambulatory BRALUIO HOLLINGSWORTH Facility:[facility] Start: 08-19-2022 End: 08-19-2022 Patient encounter procedure Braulio Hollingsworth MD Work Phone: Obstetrics/Gynecolog y Comment on above: Encounter for superv ision of normal first in first trimester (Primary Dx) with uncer tain dates in first trimester (Primary Dx) Start: 08-14-2022 End: 08-14-2022 ambulatory TANESHA FRANKLINLex Facility:[facility] Start: 08-10-2022 Telephone encounter Braulio connolly MD Work Phone: Obstetrics/Gynecolog y Comment on above: Patient Update Start: 08-09-2022 End: 08-09-2022 Emergency department patient visit No Primary Care Physician [facility] Start: 08-04-2022 End: 08-04-2022 Emergency department patient visit [facility] Start: 08-04-2022 End: 08-04-2022 Emergency department patient visit Melania Mitchell MD Work Phone: [facility] Comment on above: Threatened miscarria ge in early (Primary Dx) Start: 07-20-2022 End: 07-20-2022 ambulatory No Primary Care Physician [facility] Work Phone: Start: 07-20-2022 End: 07-20-2022 Discharged Recurring No Primary Care Physician [facility] Start: 07-20-2022 Registered Recurring No Primary Care Physician [facility] Start: 07-09-2022 Telephone encounter Ledy wang MD Work Phone: [facility] Comment on above: Missed Appointment ( #1 No Show, #1 Letter) Start: 07-08-2022 End: 07-08-2022 Patient encounter procedure No Primary Care Physician [facility] Start: 06-29-2022 End: 06-30-2022 Emergency department patient visit No Primary Care Physician [facility] Start: 05-31-2022 End: 05-31-2022 Emergency department patient visit HIWOT HUDSON Facility:[facility] Start: 12-31-2021 End: 12-31-2021 Emergency department patient visit JAYDE YEAGER Facility:[facility] Start: 01-27-2021 End: 01-27-2021 ambulatory Alex [phone] Lynsey [phone] Facility:[facility] Start: 12-25-2018 Patient encounter procedure Facility:[id number] Start: 09-03-2018 Patient encounter procedure Facility:[id number] Procedures Date Procedure Procedure Detail Performing Clinician Start: 10-14-2022 URINE OB DIP B/O Grteel Quintana MD Work Phone: Start: 10-14-2022 INFLUENZA VACCINE QUADRIVALENT 6 MO - 64 YRS IM Gretel Quintana MD Work Phone: Start: 08-19-2022 End: 08-19-2022 Antibody screen Braulio Hollingsworth MD Work Phone: Comment on above: Order Comment: Speci men Type: BLOOD SPECIMEN Ordering Facility: [facility] Address: [address] [place], [place] [id number] Performed By: #### T SPN #### [facility] [id number] [address] [place] [address] [place] Start: 08-19-2022 Antibody screen rbc each serum technique Braulio Hollingsworth MD Work Phone: Start: 08-19-2022 Blood count complete automated Braulio Hollingsworth MD Work Phone: Start: 08-19-2022 URINE OB DIP B/O Alta Hollingsworth MD Work Phone: Start: 08-19-2022 Us uterus l imited 1/> fetuses Braulio Hollingsworth MD Work Phone: Start: 08-14-2022 Antibody screen CHEKO CASTILLO Comment on above: Order Comment: Speci men Type: BLOOD SPECIMEN Ordering Facility: [facility] Address: [place] [address] Performed By: #### T SPN #### [facility] CLIA [id number] 1 [place] [address] [place] Start: 08-09-2022 Transvaginal obstetr ic ultrasonography No Primary Care Physician Start: 08-04-2022 Antibody screen Melania cornejo MD Work Phone: Start: 08-04-2022 Blood typing serologic abo Melania Mitchell MD Work Phone: Start: 08-04-2022 Us preg uterus real time w/image dcmtn transvag Melania Mitchell MD Work Phone: Start: 08-04-2022 Gonadotropin chorion ic quantitative Melania Mitchell MD Work Phone: Start: 06-29-2022 Plain chest X-ray No Pr imary Care Physician Start: 06-29-2022 Computed tomography of abdomen and pelvis with contrast No Primary Care Physician Start: 06-29-2022 CT of head without contrast No Primary Care Physician Start: 06-29-2022 CT cervical spine wi thout contrast No Primary Care Physician Structure of wisdom tooth (body structure) 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 Plan of Treatment Date Care Activity Detail Author Start: 08-19-2025 PAP TESTING PAP TESTING [facility] Start: 05-14-2024 PAP TESTING PAP TESTING [facility] Start: 08-19-2023 CHLAMYDIA SCREENING (18-24) CHLAMYDIA SCREENING (18-24) [facility] Start: 08-19-2023 GC (GONORRHEA) SCREE SAADIA (18-24) GC (GONORRHEA) SCREENING (18-24) [facility] Start: 10-14-2022 End: 10-14-2023 OBSTETRIC ULTRASOUND WHI OBSTETRIC ULTRASOUND WHI Anc Imaging Routine Encounter for supervision of normal first in second trimester Expected: 10/14/2022, Expires: 10/14/2023 [facility] Work Phone: Comment on above: Expected: 10/14/2022 , Expires: 10/14/2023 Start: 10-11-2022 DEPRESSION ASSESSMENT DEPRESSION ASS ESSMENT [facility] Start: 08-19-2022 End: 10-19-2022 Hepatitis B virus surface Ab [Presence] in Serum by Immunoassay [facility] Work Phone: Comment on above: Expected: 08/19/2022 , Expires: 10/19/2022 Start: 08-19-2022 End: 10-19-2022 Hepatitis C virus Ab [Presence] in Serum [facility] Work Phone: Comment on above: Expected: 08/19/2022 , Expires: 10/19/2022 Start: 08-19-2022 End: 10-19-2022 HIV 1+2 Ab [Presence] in Serum or Plasma by Immunoassay [facility] Work Phone: Comment on above: Expected: 08/19/2022 , Expires: 10/19/2022 Start: 08-19-2022 End: 08-19-2023 NUCHAL TRANSLUCENCY WHI NUCHAL TRANSLUCENCY WHI Anc Imaging Routine Encounter for supervision of normal first in first trimester Expected: 08/19/2022, Expires: 08/19/2023 [facility] Work Phone: Comment on above: Expected: 08/19/2022 , Expires: 08/19/2023 Start: 08-19-2022 End: 10-19-2022 RUBELLA IGG AB [facility] Work Phone: Comment on above: Expected: 08/19/2022 , Expires: 10/19/2022 Start: 08-19-2022 End: 10-19-2022 SYPHILIS TOTAL W/REFLEX [facility] Work Phone: Comment on above: Expected: 08/19/2022 , Expires: 10/19/2022 Start: 07-08-2022 Patient referral [facility] Work Phone: Start: 06-11-2022 Influenza vaccination INFLUENZA (#1) [facility] Start: 05-14-2022 CHLAMYDIA SCREENING (18-24) CHLAMYDIA SCREENING (18-24) [facility] Start: 05-14-2022 GC (GONORRHEA) SCRELily SAADIA (18-24) GC (GONORRHEA) SCREENING (18-24) [facility] Start: 05-11-2022 Influenza vaccination Flu vaccine (# 1) [facility] Start: 05-07-2022 Urine microalbumin profile DTAP,TDAP,TD (7 - Td or Tdap) [facility] Start: 10-11-2021 DEPRESSION ASSESSMENT DEPRESSION ASS ESSMENT [facility] Start: 05-17-2021 COVID-19 VACCINE (3 - Booster for Pfizer series) COVID-19 VACCINE (3 - Booster for Pfizer series) [facility] Start: 2020 Screening for malign ant neoplasm of cervix Pap smear [facility] Start: 2018 DTaP/Tdap/Td vaccine (1 - Tdap) DTaP/Tdap/Td vaccine (1 - Tdap) [facility] Start: 2017 HEPATITIS C SCREENING HEPATITIS C SC REENING [facility] Start: 2017 Hepatitis C screening Hepatitis C sc reen [facility] Start: 2017 HIV SCREENING HIV SCREENING [facility] Start: 2015 Screening for Chlamy jarod trachomatis Chlamydia/GC screen [facility] Start: 2014 HIV screening HIV screen [facility] Start: 2013 PEDS TO ADULT TRANSI TION ANNUAL ASSESSMENT PEDS TO ADULT TRANSITION ANNUAL ASSESSMENT [facility] Start: 2011 Depression Screen Depression Screen [facility] Start: 2011 PEDS TO ADULT TRANSI TION INITIAL DISCUSSION PEDS TO ADULT TRANSITION INITIAL DISCUSSION [facility] Start: 2010 HPV vaccine (1 - 2-d ose series) HPV vaccine (1 - 2-dose series) [facility] Start: 2009 MENINGOCOCCAL B: Consider based on risk (1 of 2 - Risk Bexsero 2-dose series) MENINGOCOCCAL B: Consider based on risk (1 of 2 - Risk Bexsero 2-dose series) [facility] Start: 2000 Varicella vaccine (1 of 2 - 2-dose childhood series) Varicella vaccine (1 of 2 - 2-dose childhood series) [facility] Start: 04-09-2000 COVID-19 VACCINE (#1) COVID-19 VACCI NE (#1) [facility] Bacteria identified in Urine by Culture URINE CULTURE Microbiology Routine Encounter for supervision of normal first in first trimester 08/19/2022 2:08 PM [facility] Work Phone: Chlamydia trachomatis+Neisseria gonorrhoeae DNA [Presence] in Unspecified specimen by CHICHO with probe detection GC/CHLAMYDIA DNA DET Lab Routine Encounter for supervision of normal first in first trimester 08/19/2022 2:13 PM [facility] Work Phone: PAP FLUID CERVICAL SCREENING PAP FLUID CERVICAL SCREENING Lab Routine Encounter for supervision of normal first in first trimester Ordered: 08/19/2022 [facility] Work Phone: Comment on above: Ordered: 08/19/2022 Patient Education [facility] Work Phone: Patient referral [facility] Work Phone: [facility] Immunizations Immunization Date Immunization Notes Care Provider [facility] 08-24-2023 tetanus toxoid, redu ibis diphtheria toxoid, and acellular pertussis vaccine, adsorbed KIRSTEN MAST 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 [facility] 02-01-2023 tetanus toxoid, redu ibis diphtheria toxoid, and acellular pertussis vaccine, adsorbed; Translations: [Boostrix (Tdap)] MARTINEZ NÚÑEZ MD [facility] Comment on above: Result Comment: [facility]- [id number] 10-14-2022 influenza virus vacc ine, unspecified formulation KIRSTEN MAST 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 [facility] 10-14-2022 influenza, injectabl e, quadrivalent, contains preservative Gretel Quintana MD Work Phone: [facility] 03-22-2021 SARS-CoV-2 mRNA (tozinameran) vaccine KIRSTEN [facility] LABORER GENERAL[facility] 03-01-2021 SARS-CoV-2 mRNA (tozinameran) vaccine KIRSTEN [facility] LABORER GENERAL[facility] 09-20-2020 influenza virus vacc ine, unspecified formulation [facility] 09-08-2019 influenza virus vacc ine, unspecified formulation [facility] 03-02-2018 varicella virus vaccine [facility] LABORER GENERAL-[facility] 07-26-2017 influenza virus vacc ine, unspecified formulation [facility] 05-11-2017 meningococcal polysaccharide (groups A, C, Y and W-135) diphtheria toxoid conjugate vaccine (MCV4P) [facility] 02-24-2016 meningococcal polysaccharide (groups A, C, Y and W-135) diphtheria toxoid conjugate vaccine (MCV4P) Ledy Vaughn MD Work Phone: [facility] 07-05-2014 influenza virus vacc ine, unspecified formulation [facility] LABORER GENERAL-[facility] 07-05-2014 influenza, injectabl e, quadrivalent, preservative free Ledy Vaughn MD Work Phone: [facility] Work Phone: 02-20-2014 human papilloma viru s vaccine, quadrivalent Ledy Vaughn MD Work Phone: [facility] 02-20-2014 Human Papillomavirus Quadval KIRSTEN MAST 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 [facility] 05-18-2013 human papilloma viru s vaccine, quadrivalent Ledy Vaughn MD Work Phone: [facility] Work Phone: 05-07-2012 human papilloma viru s vaccine, quadrivalent Ledy Vaughn MD Work Phone: [facility] 05-07-2012 Meningococcal, MCV4, unspecified conjugate formulation(groups A, C, Y and W-135) Ledy Vaughn MD Work Phone: [facility] 05-07-2012 tetanus toxoid, redu ibis diphtheria toxoid, and acellular pertussis vaccine, adsorbed Ledy Vaughn MD Work Phone: [facility] 05-07-2012 varicella virus vaccine Chayo Harris MD Work Phone: [facility] 01-09-2005 diphtheria, tetanus toxoids and acellular pertussis vaccine Ledy Vaughn MD Work Phone: [facility] 01-09-2005 measles, mumps and rubella virus vaccine Ledy Vaughn MD Work Phone: [facility] 01-09-2005 poliovirus vaccine, inactivated Ledy Vaughn MD Work Phone: [facility] 04-26-2001 pneumococcal conjuga te vaccine, 7 valent Ledy Vaughn MD Work Phone: [facility] 02-17-2001 diphtheria, tetanus toxoids and acellular pertussis vaccine Ledy Vaughn MD Work Phone: [facility] Work Phone: 02-17-2001 haemophilus influenz ae type b vaccine, HbOC conjugate Ledy Vaughn MD Work Phone: [facility] Work Phone: 02-17-2001 pneumococcal conjuga te vaccine, 7 valent Ledy Vaughn MD Work Phone: [facility] 11-03-2000 measles, mumps and rubella virus vaccine Ledy Vaughn MD Work Phone: [facility] Work Phone: 11-03-2000 measles/mumps/rubell a virus vaccine KIRSTEN CISNEROS 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 [facility] 11-03-2000 varicella virus vaccine Chayo Harris MD Work Phone: [facility] Work Phone: 05-05-2000 diphtheria, tetanus toxoids and acellular pertussis vaccine Ledy Vaughn MD Work Phone: [facility] Work Phone: 05-05-2000 haemophilus influenz ae type b vaccine, HbOC conjugate Ledy Vaughn MD Work Phone: [facility] Work Phone: 05-05-2000 hepatitis B vaccine, pediatric or pediatric/adolescent dosage Ledy Vaughn MD Work Phone: [facility] Work Phone: 05-05-2000 poliovirus vaccine, inactivated Ledy Vaughn MD Work Phone: [facility] Work Phone: 03-03-2000 diphtheria, tetanus toxoids and acellular pertussis vaccine Ledy Vaughn MD Work Phone: [facility] Work Phone: 03-03-2000 haemophilus influenz ae type b vaccine, HbOC conjugate Ledy Vaughn MD Work Phone: [facility] Work Phone: 03-03-2000 poliovirus vaccine, inactivated Ledy Vaughn MD Work Phone: [facility] Work Phone: 1999 diphtheria, tetanus toxoids and acellular pertussis vaccine Ledy Vaughn MD Work Phone: [facility] Work Phone: 1999 haemophilus influenz ae type b vaccine, HbOC conjugate Ledy Vaughn MD Work Phone: [facility] Work Phone: 1999 hepatitis B vaccine, pediatric or pediatric/adolescent dosage Ledy Vaughn MD Work Phone: [facility] Work Phone: 1999 poliovirus vaccine, inactivated Ledy Vaughn MD Work Phone: [facility] Work Phone: 1999 hepatitis B pediatri c vaccine KIRSTEN BLAYNE 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 [facility] 1999 hepatitis B vaccine, pediatric or pediatric/adolescent dosage Ledy Vaughn MD Work Phone: [facility] Work Phone: Payers Date Payer Category Payer Self-pay [id number] 2025 Unknown [id number] 2023 Unknown [id number] 2021 Unknown [id number] 2021 Unknown [id number] 2021 Unknown [id number] 1999 Unknown [id number] 2.16. 840.1.961053.3.579.2.356 1999 Unknown [id number] 2.16. 840.1.111838.3.579.2.356 1999 Unknown [id number] 2.16.8 40.1.571211.3.579.2.419 1999 Unknown [id number] 2.16. 840.1.960625.3.579.2.668 1999 Unknown [id number] 2.16.8 40.1.102252.3.579.2.627 1999 Unknown [id number] 2.16.8 40.1.808871.3.579.2.627 1999 Unknown [id number] 2.16.8 40.1.871331.3.579.2.627 1999 Unknown [id number] 2.16.8 40.1.989252.3.579.2.627 1999 Unknown [id number] 2.16.8 40.1.439419.3.579.2.627 1999 Unknown [id number] 2.16.8 40.1.216646.3.579.2.627 1999 Unknown [id number] 2.16.8 40.1.645312.3.579.2.627 1999 Unknown [id number] 2.16.8 40.1.452763.3.579.2.627 1999 Unknown [id number] 2.16.8 40.1.497621.3.579.2.627 1999 Unknown [id number] 2.16.8 40.1.712540.3.579.2.627 1999 Unknown [id number] 2.16. 840.1.939784.3.579.2.479 1999 Unknown [id number] 2.16 840.1.029496.3.579.2479 1999 Unknown [id number] 2.16 840.1.176196.3.579.2479 Unknown [id number] Unknown [facility] [id number] Unknown [facility] [id number] Unknown [facility] [id number] Unknown [id number] 2.16.8 40.1.457673.3.579.2.462 Unknown [id number] 2.16.8 40.1.003686.3.579.2.462 Unknown [id number] 2.16.8 40.1.023020.3.579.2.462 Unknown [id number] 2.16.8 40.1.359270.3.579.2.462 Unknown [id number] 2.16.8 40.1.974147.3.579.2.462 Unknown [id number] 2.16.8 40.1.714364.3.579.2.462 Unknown [id number] 2.16.8 40.1.947927.3.579.2.462 Unknown [id number] 2.16.8 40.1.444976.3.579.2.462 Unknown [id number] 2.16.8 40.1.609658.3.579.2.462 Unknown [id number] 2.16.8 40.1.451683.3.579.2.462 Unknown [id number] 2.16.8 40.1.330482.3.579.2.462 Unknown [id number] 2.16.8 40.1.535008.3.579.2.462 Unknown [id number] 2.16.8 40.1.333811.3.579.2.462 Unknown [id number] 2.16.8 40.1.061296.3.579.2.462 Unknown [id number] 2.16.8 40.1.674502.3.579.2.462 Unknown [id number] 2.16.8 40.1.156451.3.579.2.462 Unknown [id number] 2.16.8 40.1.152293.3.579.2.462 Unknown [id number] 2.16.8 40.1.738663.3.579.2.462 Unknown [id number] 2.16.8 40.1.216269.3.579.2.462 Social History Date Type Detail Facility Start: 12-31-2021 End: 07-28-2024 Tobacco smoking status NHIS Never smoked tobacco [facility] Start: 12-31-2021 End: 08-19-2022 Tobacco use and exposure Smokeless tobacco non-user [facility] Start: 12-31-2021 End: 10-14-2022 Alcohol intake Ex-drinker (finding) [facility] Start: 06-27-2013 End: 08-19-2022 Tobacco Comment dad smokes outside [facility] Start: 2000 Sex Assigned At Female [facility] Start: 06-28-2022 End: 08-19-2022 Exposure to SARS-CoV-2 (event) Not sure [facility] Start: 1999 Sex Assigned At Not on file [facility] [employer] Work Phone: Start: 08-09-2022 End: 08-09-2022 Tobacco smoking status NHIS Unknown if ever smoked [facility] Work Phone: Start: 10-24-2020 Spouse/ Signif icant Other [facility] Work Phone: Start: 07-12-2022 [facility] Goals Date Patient Goal Desired Activity /State Functional Status Date Assessment Result Facility 08-03-2024 Functional Status Home Living Ad ditional Information Objective: Cardiovascular Screen: BP: 110/70 HR: 96 BPM O2 sat: 98% Observation: Mild excess thoracic kyphosis. Mild to moderate forward head posture. Cervical ROM: Mod loss rotation R mod loss L: major loss flex mod loss extension., retraction mod loss, protraction min loss. Thoracic AROM: Flex: mod loss, Ext: mod loss, Rotation: mod loss. MMT: see chart Palpation: Denies central spine tenderness Special Tests: Negative hoffmans and inverted supinator sign Sensation: grossly intact and symmetrical to light touch on bilat UE's Special tests neuro: Hoffmans and inverted supinator sign: - bilat, sharp irasema: -, alar ligament: - Segmental Motion: not tested Sensation:Grossly intact light touch bilat UE's Reflexes: 1+ bilat biceps and triceps [facility] [place] 04-02-2023 Functional Status Rooming in [facility] 04-01-2023 Functional Status [facility] 04-01-2023 Functional Status Independent [facility] 04-01-2023 Functional Status [facility] 03-30-2023 Functional Status Home independently [facility] 03-07-2023 Functional Status Ambulating in room [facility] Mental Status Date Assessment Result Facility 03-07-2023 Mental Status Orientation Oriented x 4 [facility] Clinical Notes 07-09-2022 to 02-18-2024 Laboratory Note Date & Type Note Facility 02-18-2024 Note ORIGINAL EXAMINATION: 3 XRAY VIEWS OF THE CERVICAL SPINE 02/18/2024 9:24 am COMPARISON: None. HISTORY: ORDERING SYSTEM PROVIDED HISTORY: Reason for Exam: chronic neck pain; facial numbness; migraines FINDINGS: The cervical spine alignment is remarkable for straightening of cervical lordosis in the upper cervical spine. There is no subluxation. Vertebral bodies are normal in height with no fracture. The odontoid process is intact. The intervertebral disc spaces are normal. Facet joints have a normal appearance. No osseous lesion is detected in the cervical spine. There is no prevertebral soft tissue swelling. IMPRESSION: 1. Straightening of cervical lordosis may be due to muscle spasm. 2. No fracture or subluxation. Interpreted by: Kamar Lilly MD Preliminary Report By: Kamar Lilly MD Electronically signed By Kamar Lilly MD Dictated Date: 02/19/2024 1:38:21 AM Prelim Date: 02/19/2024 1:39:46 AM Sign Date: 02/19/2024 1:39:46 AM Ordering Provider: KIRSTEN CISNEROS [facility] 10-15-2023 Evaluation + Plan note Diagnostic Tests PendingVitamin B12 Level 10/15/23Folate Level 10/15/23 Future Scheduled TestsGlucose Level 07/20/23Lipid Profile 07/20/23 [facility] 04-02-2023 Evaluation + Plan note Extrac barbara from: Title:Clinical Document Author:LONG DICKERSON MD Date:04/02/23 Subjective Comfortable with oral Motrin Lochia small. Baby is eating well per bottle Stayed overnight due to elevated bili levels in baby Objective Looks very well. Independent in room. Abdomen: Soft, uterus firm at U- 2 Extremities: Nontender with 1+ edema VITALS TmtgveCjzkNXMmzroKMXxD8AZG9NxmqWe(kg) 04/02 00:3136.6--266500--85/20 78.0 04/01 16:2036.5--7916---- 04/01 08:4136.1--8114---- 03/31 23:3036.6--8416---- 03/31 15:2536.9--8616---- 24 Hr Tmax: 36.6 at 04/02 00:31 36 Hr Tmax: 36.6 at 04/02 00:31 Vital Signs are the last 5 in the past 48 hours. Weights display the last 5 within 7 days. Initial Wt: 03/30 78.0 kg 172 lb Current Wt: 03/30 78.0 kg 172 lb LABS No 36 Hour Lab Data Medications Active Inpt Meds: ibuprofen (Motrin) Start: 03/30/23 19:48:00 EDT, Dose = 600 mg, = 1 tab(s), Oral, q6h, 03/30/23 19:48:00 EDT Problems (4) Anxiety ([id number]) Body mass index 30+ - obesity ([id number]) ([id number]) UTI (urinary tract infection) ([id number]) ASSESSMENT/PLAN: PPD #2 after . Doing very well. Home today. Extracted from: Title:Clinical Document Author:LONG DICKERSON MD Date:03/31/23 Subjective Comfortable with oral Motrin Lochia small. Baby is nursing well. . Objective Looks very well. Independent in room. CVS: RRR Lungs: CTA B Abdomen: Soft, uterus firm at U- 1 Extremities: Nontender with 1+ edema VITALS XwzcqhFlfgHKPcsumNJAlM9FKV2JfopCc(kg) 03/31 08:3636.8--7816----03/30 78.0 03/31 05:4936--8216---- 03/31 02:00 RA 03/30 20:15----65446--QT 03/30 20:00----8018--RA 24 Hr Tmax: 36.8 at 03/31 08:36 36 Hr Tmax: 36.8 at 03/31 08:36 Vital Signs are the last 5 in the past 48 hours. Weights display the last 5 within 7 days. Initial Wt: 03/30 78.0 kg 172 lb Current Wt: 03/30 78.0 kg 172 lb LABS 03/31 05:37 WBC: 10.9 H Hgb: 11.5 L Hct: 33.1 L Platelet: 155 Neutrophil %: 80.9 H 03/30 07:57 WBC: 10.8 Hgb: 12.9 Hct: 37.2 Platelet: 169 Neutrophil %: 75.7 Medications Active Inpt Meds: ibuprofen (Motrin) Start: 03/30/23 19:48:00 EDT, Dose = 600 mg, = 1 tab(s), Oral, q6h, 03/30/23 19:48:00 EDT Problems (4) Anxiety ([id number]) Body mass index 30+ - obesity (034428980) (951276537) UTI (urinary tract infection) ([id number]) ASSESSMENT/PLAN: PPD #1 after Outlet vacuum delivery for maternal exhaustion Doing well. Home after 24hr. Extracted from: Title:Clinical Document Author:LONG DICKERSON MD Date:03/30/23 CHIEF COMPLAINT: Membranes ruptured with a pop at 0600 HISTORY OF PRESENT ILLNESS: 22-year-old white female 1 estimated gestational age 39.2 weeks came in with the above. Contractions started shortly after. No bleeding, FM++ OBSTETRIC HX: Patient has been compliant with care and did receive prophylactic baby aspirin throughout . An ultrasound at 35 weeks was suspicious for small possible gestational age and she has had scheduled antepartum testing since then, all of which has been reassuring. KIMO 04/04/23 (Final) EGA 39 Weeks, 2 Days /Parity G1,P0(0,0,0,0) Multiple Fetuses No, Najera Current Weight 79kg Pre-Preg Weight 77kg Height 155cm BMI 32.9kg/m2 Blood Type O POS RPR Non-Reactive RPR, External Nonreactive Rubella, External Immune Hepatitis B, External Negative HIV Antibodies, External Negative 1GTT is wnl GBBS neg REVIEW OF SYSTEMS: All negative ACTIVE PROBLEMS: (4) Anxiety ([id number]) Body mass index 30+ - obesity (125840542) (175305977) UTI (urinary tract infection) ([id number]) ALLERGIES: (1) CeleXA FAMILY HISTORY: No inheritable diseases. SOCIAL HISTORY: . Denies tobacco use Denies alcohol use. No illicit drug use. PHYSICAL EXAM: VITALS: EkiqmuJjnmJQPvbdqVASzV5EGP2YflgBq(kg) 03/30 10:5735.6--7518----03/30 78.0 03/30 10:0535.9 03/30 09:0536.1 03/30 08:53----9518---- 24 Hr Tmax: 36.1 at 03/30 09:05 36 Hr Tmax: 36.1 at 03/30 09:05 Vital Signs are the last 5 in the past 48 hours. Weights display the last 5 within 7 days. Initial Wt: 03/30 78.0 kg 172 lb Current Wt: 03/30 78.0 kg 172 lb GENERAL: Young white female in no acute distress HEENT: Normal CARDIOVASCULAR: RRR RESPIRATORY: CTA B ABDOMEN: Gravid with clinical estimated weight of 6 to 61/2 pounds. Monitor shows contractions every 2 -3 minutes FHR is 140s and reactive. Category 1. Pelvic exam:2-3/80%/-2/midposition several hours ff admission with spontaneous ctxs. On admission patient was 2/50%/-2, posterior . EXREMETIES: Nontender without edema. Reflexes are normal at 2/4. NEUROLOGICAL: Grossly normal PSYCHIATRIC: Grossly normal Diagnostics:Estimated FW: 2553 gm. 5 lb 10 oz 15 %Tile on 03/15/2023 IMPRESSION: 1. 39.2 week intrauterine 2. Spontaneous rupture of membranes 3. Early labor Plan: Admit for labor support in anticipation of spontaneous vaginal delivery. Extracted from: Title:History and Physical Author:CHITO GRAHAM MD Date:03/30/23 39 weeks gestation of pregna ncy Labor w SROM if no cervical progress by noon start pitocin Orders: carboprost, Start: 03/30/23 7:19:00 EDT, Dose = 250 mcg, = 1 mL, Intramuscular, Once, PRN, Other (see order comments), 03/30/23 7:19:00 EDT citric acid-sodium citrate, Start: 03/30/23 7:19:00 EDT, Dose = 30 mL, Soln, Oral, AsDirected, PRN, Gastric Upset, 03/30/23 7:19:00 EDT Lactated Ringers Infusion, Start: 03/30/23 7:19:00 EDT, Dose = 500 mL, Soln, IV Bolus, AsDirected, PRN, Other (see order comments), Rate: 500 mL/hr, 03/30/23 7:19:00 EDT Lactated Ringers Infusion 1,000 mL, Start: 03/30/23 7:19:00 EDT, Rate: 100 mL/hr, 03/30/23 7:19:00 EDT lidocaine, Start: 03/30/23 7:19:00 EDT, Dose = 20 mg, = 2 mL, Perineum, AsDirected, PRN, to perineal sutures, 1 dose(s), Stop: Limited # of times, 03/30/23 7:19:00 EDT methylergonovine, Start: 03/30/23 7:19:00 EDT, Dose = 0.2 mg, = 1 mL, Intramuscular, Once, PRN, Other (see order comments), 03/30/23 7:19:00 EDT miSOPROStol, Start: 03/30/23 7:19:00 EDT, Dose = 1,000 mcg, Rectal, Once, PRN, Other (see order comments), 03/30/23 7:19:00 EDT nalbuphine, Start: 03/30/23 7:19:00 EDT, Dose = 10 mg, = 1 mL, IV Push, q2h, PRN, Pain, 03/30/23 7:19:00 EDT ondansetron, Start: 03/30/23 7::00 EDT, Dose = 4 mg, = 2 mL, IV Push, q4h, PRN, Nausea, 03/30/23 7:19:00 EDT oxytocin, Start: 03/30/23 7:19:00 EDT, Dose = 20 unit(s), = 2 mL, Intramuscular, Once, PRN, Other (see order comments), 03/30/23 7::00 EDT oxytocin 20 unit(s) + LR Premix Diluent 1,000 mL, Start: 03/30/23 7:19:00 EDT, Rate: 999 mL/hr, 03/30/23::00 EDT terbutaline, Start: 03/30/23 7::00 EDT, Dose = 0.25 mg, = 0.25 mL, Subcutaneous, AsDirected, PRN, Other (see order comments), 03/30/23:19:00 EDT tranexamic acid, Start: 03/30/23 7:19:00 EDT, Dose = 1 gram(s), IV Piggyback, AsDirected, PRN, Other (see order comments), Infuse over: 20 minute(s), 03/30/23:19:00 EDT Ambulate Antiembolism Stocking Application Knee High Complete Blood Count Consult to Anesthesia Diet Order Epidural Anesthesia Monitoring Intake and Output IV Catheter Insertion/Care Oxygen Administration (LDRP) Prn Adapter Rapid Plasma Reagin Test Straight Cath Type and Screen (AO) Urinary Catheter Insertion/Care Vital Signs Vital Signs Call Parameters Future Appointments Appointment Date:04/20/2023 02:00:00 PM Scheduled Provider:SUNIL GRAHAM MD Location:[facility] Appointment Type:[facility] 06-22-2023 Note day #2 progress note: Subjective: Feels well but some vaginal soreness. Currently bottlefeeding but will start pumping. No significant cramping at this point. Bleeding reported as light. Voiding without difficulty. No trouble eating. Objective: Afebrile vital signs stable. Hemoglobin appropriate on day #1. Abdomen is soft nontender fundus is firm and nontender. Bleeding is light. Some lower extremity edema but not worsened since delivery. Impression/plan: Doing well on day #2. Baby is being held for phototherapy secondary to elevated bilirubins and will keep patient in the hospital until baby is able to be discharged. Recommend that her get her breast pump so that she can get started on this. Digitally Signed by MARTINEZ NÚÑEZ MD on 04/01/2023 09:01 AM [facility]06-21-2023 Hospital Discharge instructions Patient Education 03/31/2023 12:34:52 Care After Vaginal Delivery Care After Vaginal Delivery This sheet gives you information about how to care for yourself from the time you deliver your babyto up to 6 12 weeks after delivery ( period). Your health care provider may also give youmore specific instructions. If you have problems or questions, contact your health care provider. Follow these instructions at home: Vaginal bleeding It is normal to have vaginal bleeding (lochia) after delivery. Wear a sanitary pad for vaginal bleeding and discharge. ?During the first week after delivery, the amount and appearance of lochia is often similar to a menstrual period. ?Over the next few weeks, it will gradually decrease to a dry, yellow-brown discharge. ?For most women, lochia stops completely by 4 6 weeks after delivery. Vaginal bleeding can vary from woman to woman. Change your sanitary pads frequently. Watch for any changes in your flow, such as: ?A sudden increase in volume. ?A change in color. ?Large blood clots. If you pass a blood clot from your vagina, save it and call your health care provider to discuss. Do not flush blood clots down the toilet before talking with your health care provider. Do not use tampons or douches until your health care provider says this is safe. If you are not , your period should return 6 8 weeks after delivery. If you are feeding your child breast milk only (exclusive ), your period may not return until you stop . Perineal care Keep the area between the vagina and the anus (perineum) clean and dry as told by your health care provider. Use medicated pads and pain-relieving sprays and creams as directed. If you had a cut in the perineum (episiotomy) or a tear in the vagina, check the area for signs of infection until you are healed. Check for: ?More redness, swelling, or pain. ?Fluid or blood coming from the cut or tear. ?Warmth. ?Pus or a bad smell. You may be given a squirt bottle to use instead of wiping to clean the perineum area after you go to the bathroom. As you start healing, you may use the squirt bottle before wiping yourself. Make sure to wipe gently. To relieve pain caused by an episiotomy, a tear in the vagina, or swollen veins in the anus (hemorrhoids), try taking a warm sitz bath 2 3 times a day. A sitz bath is a warm water bath that is taken while you are sitting down. The water should only come up to your hips and should cover your buttocks. Breast care Within the first few days after delivery, your breasts may feel heavy, full, and uncomfortable (breast engorgement). Milk may also leak from your breasts. Your health care provider can suggest ways to help relieve the discomfort. Breast engorgement should go away within a few days. If you are : ?Wear a bra that supports your breasts and fits you well. ?Keep your nipples clean and dry. Apply creams and ointments as told by your health care provider. ?You may need to use breast pads to absorb milk that leaks from your breasts. ?You may have uterine contractions every time you breastfeed for up to several weeks after delivery. Uterine contractions help your uterus return to its normal size. ?If you have any problems with , work with your health care provider or behavioral health consultant. If you are not : ?Avoid touching your breasts a lot. Doing this can make your breasts produce more milk. ?Wear a good-fitting bra and use cold packs to help with swelling. ?Do not squeeze out (express) milk. This causes you to make more milk. Intimacy and sexuality Ask your health care provider when you can engage in sexual activity. This may depend on: ?Your risk of infection. ?How fast you are healing. ?Your comfort and desire to engage in sexual activity. You are able to get after delivery, even if you have not had your period. If desired, talkwith your health care provider about methods of control (contraception). Medicines Take dchj-hhf-wyxvwmu and prescription medicines only as told by your health care provider. If you were prescribed an antibiotic medicine, take it as told by your health care provider. Do notstop taking the antibiotic even if you start to feel better. Activity Gradually return to your normal activities as told by your health care provider. Ask your health care provider what activities are safe for you. Rest as much as possible. Try to rest or take a nap while your baby is sleeping. Eating and drinking Drink enough fluid to keep your urine pale yellow. Eat high-fiber foods every day. These may help prevent or relieve constipation. High-fiber foods include: ?Whole grain cereals and breads. ?Brown rice. ?Beans. ?Fresh fruits and vegetables. Do not try to lose weight quickly by cutting back on calories. Take your vitamins until your checkup or until your health care provider tells you it is okay to stop. Lifestyle Do not use any products that contain nicotine or tobacco, such as cigarettes and e-cigarettes. If you need help quitting, ask your health care provider. Do not drink alcohol, especially if you are . General instructions Keep all follow-up visits for you and your baby as told by your health care provider. Most women visit their health care provider for a checkup within the first 3 6 weeks after delivery. Contact a health care provider if: You feel unable to cope with the changes that your child brings to your life, and these feelings donot go away. You feel unusually sad or worried. Your breasts become red, painful, or hard. You have a fever. You have trouble holding urine or keeping urine from leaking. You have little or no interest in activities you used to enjoy. You have not breastfed at all and you have not had a menstrual period for 12 weeks after delivery. You have stopped and you have not had a menstrual period for 12 weeks after you stopped . You have questions about caring for yourself or your baby. You pass a blood clot from your vagina. Get help right away if: You have chest pain. You have difficulty breathing. You have sudden, severe leg pain. You have severe pain or cramping in your lower abdomen. You bleed from your vagina so much that you fill more than one sanitary pad in one hour. Bleeding should not be heavier than your heaviest period. You develop a severe headache. You faint. You have blurred vision or spots in your vision. You have bad-smelling vaginal discharge. You have thoughts about hurting yourself or your baby. If you ever feel like you may hurt yourself or others, or have thoughts about taking your own life,get help right away. You can go to the nearest emergency department or call: Your local emergency services (911 in the [place] A suicide crisis helpline, such as the National Suicide Prevention Lifeline at . Thisis open 24 hours a day. Summary The period of time right after you deliver your up to 6 12 weeks after delivery is called the period. Gradually return to your normal activities as told by your health care provider. Keep all follow-up visits for you and your baby as told by your health care provider. This information is not intended to replace advice given to you by your health care provider. Make sure you discuss any questions you have with your health care provider. Document Released: 07/24/2008 Document Revised: 09/30/2018 Document Reviewed: 07/11/2018 [employer] Patient Education 2020 [employer]. 03/31/2023 12:34:52 7b- Depression and Blues (07/2020) (CUSTOM) Josef Depression and Blues All mothers are at risk of developing depression or the blues. These mood changes can occur right after giving , or they may occur many months after giving . blues or depression can be mild or severe. Additionally, depression can goaway rather quickly, or it can be a long-term condition. CAUSES Raised hormone levels and the rapid drop in those levels are thought to be a main cause of depression and blues. A number of hormones change during and after . Estrogenand progesterone usually decrease right after delivery. The levels of thyroid hormone and various cortisol steroids also rapidly drop. Other factors that play a role in these mood changes include major life events and genetics. RISK FACTORS If you have any of the following risks for blues or depression, know what symptoms to watch out for during the period. Risk factors that may increase the likelihood of getting blues or depression include: Having a personal or family history of depression. Having depression while being . Having premenstrual mood issues or mood issues related to oral contraceptives. Having a lot of life stress. Having marital conflict. Lacking a social support network. Having health problems, such as diabetes. SIGNS AND SYMPTOMS Symptoms of blues include: Brief changes in mood, such as going from extreme happiness to sadness. Decreased concentration. Difficulty sleeping. Crying spells, tearfulness. Irritability. Anxiety. Symptoms of depression typically begin within the first month after giving . These symptoms include: Difficulty sleeping or excessive sleepiness. Marked weight loss. Agitation. Feelings of worthlessness. Lack of interest in activity or food. psychosis is a very serious condition and can be dangerous. Fortunately, it is rare. Displaying any of the following symptoms is cause for immediate medical attention. Symptoms of psychosis include: Hallucinations and delusions. Bizarre or disorganized behavior. Confusion or disorientation. DIAGNOSIS A diagnosis is made by an evaluation of your symptoms. There are no medical or lab tests that lead to a diagnosis, but there are various questionnaires that a health care provider may use to identifythose with blues, depression, or psychosis. Often, a screening tool called the [place] Depression Scale is used to diagnose depression in the period. TREATMENT blues usually goes away on its own in 1 2 weeks. Social support is often all that is needed. You will be encouraged to get adequate sleep and rest. Occasionally, you may be given medicinesto help you sleep. depression requires treatment because it can last several months or longer if it is not treated. Treatment may include individual or group therapy, medicine, or both to address any social,physiological, and psychological factors that may play a role in the depression. Regular exercise, a healthy diet, rest, and social support may also be strongly recommended. psychosis is more serious and needs treatment right away. Hospitalization is often needed. HOME CARE INSTRUCTIONS Get as much rest as you can. Exercise regularly. Some women find yoga and walking to be beneficial. Eat a balanced and nourishing diet. Do little things that you enjoy. Have a cup of tea, take a bubble bath, read your favorite magazine, or listen to your favorite music. Avoid alcohol. Ask for help with chief executive, cooking, grocery shopping, or running errands as needed. Do nottry to do everything. Talk to people close to you about how you are feeling. Get support from your partner, family members, and friends. Try to stay positive in how you think. Think about the things you are grateful for. Do not spend a lot of time alone. Only take dlbq-egx-fuzhfsz or prescription medicine as directed by your health care provider. Keep all your appointments. Let your health care provider know if you have any concerns. SEEK MEDICAL CARE IF: You are having a reaction to or problems with your medicine. SEEK IMMEDIATE MEDICAL CARE IF: You have suicidal feelings. You think you may harm yourself or someone else. MAKE SURE YOU: Understand these instructions. Will watch your condition. Will get help right away if you are not doing well or get worse. Resource: [facility] Patient Information [address] [facility] This information is not intended to replace advicegiven to you by your health care provider. Make sure you discuss any questions you have with your health care provider. Follow Up Care 03/30/2023 06:39:24 With:LONG DICKERSON Address: [address] [place] [address] [facility] [place] [address]- [phone] Business (1) When: Unknown [facility] 06-21-2023 Note Date of Service 03/31/23 Chief Complaint Subjective 22 [facility] Doing well. pain well controlled. breast and bottle feeding. Unsure about disposition today, will await to see how baby does after tongue tie release Constitutional: Negative for fever, negative for chills, Eyes: Negative for vision changes, Cardiovascular: Negative for chest pain, negative for lightheadedness Respiratory: Negative for shortness of breath at rest, negative for shortness of breath with activity, Gastrointestinal: Negative for abdominal pain, negative for nausea, negative for vomiting, Genitourinary: Positive for dysuria, 2/to abrasions Neurological: Negative for abnormal or changing headaches, negativefor dizziness Objective Vitals and Measurements T: 36.8 C (Temporal Artery) TMIN: 35.9 C (Temporal Artery) TMAX: 36.8 C (Temporal Artery) HR: 78(Monitored) RR: 16 BP: 108/56 SpO2: 96% Intake and Output 7AM Yesterday to 7AM Today Intake and Output (Last 24 hours) Intake Output Urinary Catheter Output: 900.00 Total Summary Total Intake 0.00 Total Output 900.00 Fluid Balance -900.00 Physical Exam General: well groomed, well developed female who appears stated age Neuro: alert and oriented CN II-XII grossly intact Psych: pleasant mood, normal affect HEENT: NC/AT EOMI, neck without thyromegaly. no cervical lymphadenopathy CV: S1/S2 No MRCG, RRR Chest: CTABL no WRR Abd: S/NT/ND, BS present, no HSM fundus below umbilicus Extremities: warm dry and intact, no clubbing, cyanosis or edema present. no rashes, varicosities, scars. no visible tattoos or piercings. Weight Dosing Weight: 78 kg (03/30/23) Medications Medications (33) Active Scheduled: (1) ibuprofen 600 mg tablet 600 mg 1 tab(s), Oral, q6h Continuous: (4) bupivacaine-fentaNYL ANESTHESIA 100 mL 100 mL, Epidural, 11 mL/hr Lactated Ringers 1,000 mL 1,000 mL, Intravenous, 100 mL/hr Oxytocin 20 units in Lactated Ringers 1000 mL 20 unit(s) + LR Premix Diluent 1,000 mL 1,000 mL, Intravenous, 999 mL/hr Oxytocin 20 units in Lactated Ringers 1000 mL 20 unit(s) + LR Premix Diluent 1,000 mL 1,000 mL, Intravenous, 125 mL/hr PRN: (28) acetaminophen 325 mg Tablet 650 mg 2 tab(s), Oral, q6h benzocaine topical 20% Ointment 1 herlinda, Perineum, AsDirected benzocaine topical 20% [place] 1 spray(s), Perineum, q1h bisacodyl 10 mg Suppository 10 mg 1 supp, Rectal, qDay carboprost 250 mcg/ml 1mL ampule 250 mcg 1 mL, Intramuscular, Once citric acid-sodium citrate 334 mg-500 mg/5 mL (30 mL) Lashae UD 30 mL, Oral, AsDirected citric acid-sodium citrate 334 mg-500 mg/5 mL (30 mL) Lashae UD 30 mL, Oral, AsDirected docusate sodium 100 mg Capsule 100 mg 1 cap(s), Oral, BID glycerin-witch yonny topical 10%-50% Pad 1 herlinda, Topical, AsDirected hydrocortisone topical 25 mg rectal supp 25 mg 1 supp, Rectal, BID hydrocortisone-pramoxine topical 2.5%-1% Cream 4 gram(s) 1 herlinda, Perineum, q1h Lactated Ringers Injection 500 mL * Bolus * 500 mL, IV Bolus, AsDirected lanolin (purified) 7 g 1 EA, Topical, AsDirected lidocaine 1% (MPF) 2 mL vial pf 20 mg 2 mL, Perineum, AsDirected methylergonovine 0.2 mg/mL (1 mL) ampule 0.2 mg 1 mL, Intramuscular, Once misoprostol 200 mcg tablet 1,000 mcg 5 tab(s), Rectal, Once nalbuphine 10 mg/mL (1 mL) Solution 10 mg 1 mL, IV Push, q2h naloxone 0.4 mg/mL (1mL) vial 0.1 mg 0.25 mL, IV Push, AsDirected naloxone 0.4 mg/mL (1mL) vial 0.4 mg 1 mL, IV Push, AsDirected ondansetron 2 mg/ 1 mL 2 mL INJ 4 mg 2 mL, IV Push, q4h oxycodone 5 mg tablet (immediate release) 5 mg 1 tab(s), Oral, q6hr oxytocin 10 units/mL 1 mL vial 20 unit(s) 2 mL, Intramuscular, Once RHo (D) immune globulin 300 mcg/2 mL Soln 300 mcg 2 mL, Intramuscular, AsDirected simethicone 80 mg Chewable 80 mg 1 tab(s), Chewed, TID sodium biphosphate-sodium phosphate 19 gm-7 gm Enema 133 mL, Rectal, qDay terbutaline 1 mg/ml vial 0.25 mg 0.25 mL, Subcutaneous, AsDirected tranexamic acid PMX 1 gram(s) 100 mL, IV Piggyback, AsDirected zolpidem 5 mg tablet 5 mg 1 tab(s), Oral, qHS Lab Results 03/31 05:37 WBC: 10.9 H Hgb: 11.5 L Hct: 33.1 L Platelet: 155 Neutrophil %: 80.9 H 03/30 07:57 WBC: 10.8 Hgb: 12.9 Hct: 37.2 Platelet: 169 Neutrophil %: 75.7 EKG No qualifying data available. Assessment/Plan 39 weeks gestation of PROM with onset of labor within 24 hours of rupture PPD#1 doing well routine care Time Spent < 30 minutes Digitally Signed by SUNIL GRAHAM MD on 03/31/2023 11:37 AM [facility]06-21-2023 Anesthesiology Consult note Patient: LUZ OLIVEIRA Age: 22 years Sex: Female : 2000 Associated Diagnoses: None Author: JENNIFER MERA [employer] Assessment Postanesthesia assessment Vitals: Vital signs from flowsheet : Vital Signs 03/31/2023 5:49 EDT Temperature Temporal Artery 36 DegC Heart Rate Monitored 82 bpm Respiratory Rate 16 br/min Systolic Blood Pressure Non-Invasive 109 mmHg Diastolic Blood Pressure Non-Invasive 54 mmHg [facility] 03/30/2023 20:15 EDT Heart Rate Monitored 102 bpm HI Respiratory Rate 18 br/min Systolic Blood Pressure Non-Invasive 109 mmHg Diastolic Blood Pressure Non-Invasive 51 mmHg LOW 03/30/2023 20:00 EDT Heart Rate Monitored 80 bpm Respiratory Rate 18 br/min Systolic Blood Pressure Non-Invasive 105 mmHg Diastolic Blood Pressure Non-Invasive 50 mmHg 03/30/2023 19:45 EDT Heart Rate Monitored 91 bpm Respiratory Rate 18 br/min Systolic Blood Pressure Non-Invasive 113 mmHg Diastolic Blood Pressure Non-Invasive 66 mmHg 03/30/2023 19:30 EDT Heart Rate Monitored 83 bpm Respiratory Rate 18 br/min Systolic Blood Pressure Non-Invasive 119 mmHg Diastolic Blood Pressure Non-Invasive 51 mmHg LOW 03/30/2023 19:25 EDT Heart Rate Monitored 134 bpm HI Systolic Blood Pressure Non-Invasive 124 mmHg Diastolic Blood Pressure Non-Invasive 71 mmHg 03/30/2023 19:00 EDT Heart Rate Monitored 140 bpm HI Respiratory Rate 18 br/min Systolic Blood Pressure Non-Invasive 134 mmHg Diastolic Blood Pressure Non-Invasive 94 mmHg NC 03/30/2023 18:56 EDT Heart Rate Monitored 98 bpm Respiratory Rate 18 br/min Systolic Blood Pressure Non-Invasive 125 mmHg Diastolic Blood Pressure Non-Invasive 66 mmHg 03/30/2023 18:50 EDT Heart Rate Monitored 98 bpm Respiratory Rate 18 br/min Systolic Blood Pressure Non-Invasive 125 mmHg Diastolic Blood Pressure Non-Invasive 66 mmHg 03/30/2023 18:45 EDT Heart Rate Monitored 98 bpm Respiratory Rate 18 br/min Systolic Blood Pressure Non-Invasive 125 mmHg Diastolic Blood Pressure Non-Invasive 66 mmHg 03/30/2023 18:21 EDT Heart Rate Monitored 80 bpm Respiratory Rate 20 br/min Systolic Blood Pressure Non-Invasive 119 mmHg Diastolic Blood Pressure Non-Invasive 63 mmHg 03/30/2023 18:19 EDT Heart Rate Monitored 80 bpm Respiratory Rate 20 br/min Systolic Blood Pressure Non-Invasive 119 mmHg Diastolic Blood Pressure Non-Invasive 63 mmHg 03/30/2023 18:07 EDT Temperature Temporal Artery 36.0 DegC Heart Rate Monitored 100 bpm Respiratory Rate 20 br/min Systolic Blood Pressure Non-Invasive 107 mmHg Diastolic Blood Pressure Non-Invasive 47 mmHg 03/30/2023 18:06 EDT Heart Rate Monitored 100 bpm Respiratory Rate 20 br/min Systolic Blood Pressure Non-Invasive 107 mmHg Diastolic Blood Pressure Non-Invasive 47 mmHg 03/30/2023 17:30 EDT Heart Rate Monitored 100 bpm Systolic Blood Pressure Non-Invasive 100 mmHg Diastolic Blood Pressure Non-Invasive 51 mmHg LOW 03/30/2023 17:12 EDT Temperature Temporal Artery 36.2 DegC Heart Rate Monitored 77 bpm Respiratory Rate 18 br/min Systolic Blood Pressure Non-Invasive 112 mmHg Diastolic Blood Pressure Non-Invasive 53 mmHg LOW 03/30/2023 16:48 EDT Heart Rate Monitored 82 bpm Respiratory Rate 16 br/min Systolic Blood Pressure Non-Invasive 109 mmHg Diastolic Blood Pressure Non-Invasive 65 mmHg 03/30/2023 16:43 EDT Temperature Temporal Artery 36.1 DegC Heart Rate Monitored 83 bpm Respiratory Rate 18 br/min Systolic Blood Pressure Non-Invasive 112 mmHg Diastolic Blood Pressure Non-Invasive 61 mmHg 03/30/2023 16:35 EDT Heart Rate Monitored 93 bpm Respiratory Rate 16 br/min Systolic Blood Pressure Non-Invasive 109 mmHg Diastolic Blood Pressure Non-Invasive 64 mmHg 03/30/2023 16:30 EDT Heart Rate Monitored 77 bpm Respiratory Rate 16 br/min Systolic Blood Pressure Non-Invasive 101 mmHg Diastolic Blood Pressure Non-Invasive 62 mmHg 03/30/2023 16:26 EDT Heart Rate Monitored 81 bpm Respiratory Rate 18 br/min Systolic Blood Pressure Non-Invasive 110 mmHg Diastolic Blood Pressure Non-Invasive 67 mmHg 03/30/2023 16:11 EDT Respiratory Rate 16 br/min 03/30/2023 16:10 EDT Temperature Temporal Artery 35.9 DegC Heart Rate Monitored 76 bpm Respiratory Rate 18 br/min Systolic Blood Pressure Non-Invasive 102 mmHg Diastolic Blood Pressure Non-Invasive 61 mmHg 03/30/2023 15:45 EDT Heart Rate Monitored 81 bpm Respiratory Rate 18 br/min Systolic Blood Pressure Non-Invasive 107 mmHg Diastolic Blood Pressure Non-Invasive 69 mmHg 03/30/2023 15:30 EDT Heart Rate Monitored 74 bpm Respiratory Rate 18 br/min Systolic Blood Pressure Non-Invasive 105 mmHg Diastolic Blood Pressure Non-Invasive 57 mmHg LOW 03/30/2023 15:15 EDT Heart Rate Monitored 78 bpm Respiratory Rate 18 br/min Systolic Blood Pressure Non-Invasive 106 mmHg Diastolic Blood Pressure Non-Invasive 56 mmHg LOW 03/30/2023 14:56 EDT Temperature Temporal Artery 36.0 DegC Heart Rate Monitored 74 bpm Respiratory Rate 16 br/min Systolic Blood Pressure Non-Invasive 93 mmHg Diastolic Blood Pressure Non-Invasive 53 mmHg LOW 03/30/2023 14:35 EDT Heart Rate Monitored 97 bpm Respiratory Rate 16 br/min Systolic Blood Pressure Non-Invasive 91 mmHg Diastolic Blood Pressure Non-Invasive 49 mmHg 03/30/2023 14:16 EDT Heart Rate Monitored 82 bpm Respiratory Rate 16 br/min Systolic Blood Pressure Non-Invasive 96 mmHg Diastolic Blood Pressure Non-Invasive 50 mmHg 03/30/2023 14:05 EDT Temperature Temporal Artery 36.5 DegC Heart Rate Monitored 80 bpm Respiratory Rate 16 br/min Systolic Blood Pressure Non-Invasive 92 mmHg Diastolic Blood Pressure Non-Invasive 43 mmHg 03/30/2023 14:01 EDT Heart Rate Monitored 83 bpm Respiratory Rate 18 br/min Systolic Blood Pressure Non-Invasive 92 mmHg Diastolic Blood Pressure Non-Invasive 43 mmHg 03/30/2023 13:49 EDT Respiratory Rate 16 br/min 03/30/2023 13:48 EDT Respiratory Rate 16 br/min 03/30/2023 13:47 EDT Heart Rate Monitored 89 bpm Respiratory Rate 18 br/min Systolic Blood Pressure Non-Invasive 90 mmHg Diastolic Blood Pressure Non-Invasive 51 mmHg LOW 03/30/2023 13:44 EDT Respiratory Rate 16 br/min 03/30/2023 13:43 EDT Heart Rate Monitored 76 bpm Respiratory Rate 18 br/min Systolic Blood Pressure Non-Invasive 102 mmHg Diastolic Blood Pressure Non-Invasive 51 mmHg LOW 03/30/2023 13:39 EDT Heart Rate Monitored 97 bpm Respiratory Rate 18 br/min Systolic Blood Pressure Non-Invasive 107 mmHg Diastolic Blood Pressure Non-Invasive 53 mmHg LOW 03/30/2023 13:30 EDT Heart Rate Monitored 97 bpm Respiratory Rate 18 br/min Systolic Blood Pressure Non-Invasive 105 mmHg Diastolic Blood Pressure Non-Invasive 53 mmHg LOW 03/30/2023 13:25 EDT Temperature Temporal Artery 35.9 DegC Heart Rate Monitored 90 bpm Systolic Blood Pressure Non-Invasive 107 mmHg Diastolic Blood Pressure Non-Invasive 59 mmHg LOW 03/30/2023 10:57 EDT Temperature Temporal Artery 35.6 DegC Heart Rate Monitored 75 bpm Respiratory Rate 18 br/min Systolic Blood Pressure Non-Invasive 101 mmHg Diastolic Blood Pressure Non-Invasive 59 mmHg LOW 03/30/2023 10:05 EDT Temperature Temporal Artery 35.9 DegC 03/30/2023 9:05 EDT Temperature Temporal Artery 36.1 DegC 03/30/2023 8:53 EDT Heart Rate Monitored 95 bpm Respiratory Rate 18 br/min Systolic Blood Pressure Non-Invasive 123 mmHg Diastolic Blood Pressure Non-Invasive 70 mmHg , Measurements from flowsheet . Mental status: alert & oriented x 4. Respiratory function: respirations are non-labored. Respiratory support: none. CV function: Normal rate. Cardiovascular support: none. Pain. Nausea status: see nursing documentation of medications. Postoperative hydration status: within normal limits. Digitally Signed by JENNIFER MERA on 03/31/2023 06:15 AM [facility]06-20-2023 Note Patient seen at 1730 and VE is C/+1, and pateient's first push effected head movement. Appears ROP but anticipate spont rotation given descent and EFW. FHR remains category I Patient has progressed in labor well spontaneously and was 5cm at 2pm, then 8cm about 4 pm.Has beenvery comfortable s/p epidural. FHR largely category I, occasionally category II but responded to interventions. Anticipate shortly. Digitally Signed by LONG DICKERSON MD on 03/30/2023 05:30 PM [facility]06-20-2023 Note Patient seen at 1730 and VE is C/+1, and pateient's first push effected head movement. Appears ROP but anticipate spont rotation given descent and EFW. FHR remains category I Patient has progressed in labor well spontaneously and was 5cm at 2pm, then 8cm about 4 pm.Has beenvery comfortable s/p epidural. FHR largely category I, occasionally category II but responded to interventions. Anticipate shortly. Digitally Signed by LONG DICKERSON MD on 03/30/2023 05:30 PM [facility]06-20-2023 Note Patient seen at 1730 and VE is C/+1, and pateient's first push effected head movement. Appears ROP but anticipate spont rotation given descent and EFW. FHR remains category I Patient has progressed in labor well spontaneously and was 5cm at 2pm, then 8cm about 4 pm.Has beenvery comfortable s/p epidural. FHR largely category I, occasionally category II but responded to interventions. Anticipate shortly. Digitally Signed by LONG DICKERSON MD on 03/30/2023 05:30 PM [facility]06-20-2023 Note CHIEF COMPLAINT: Membranes ruptured with a pop at 0600 HISTORY OF PRESENT ILLNESS: 22-year-old white female 1 estimated gestational age 39.2 weeks came in with the above. Contractions started shortly after. No bleeding, FM++ OBSTETRIC HX: Patient has been compliant with care and did receive prophylactic baby aspirin throughout . An ultrasound at 35 weeks was suspicious for small possible gestational age and she has had scheduled antepartum testing since then, all of which has been reassuring. KIMO 04/04/23 (Final) EGA 39 Weeks, 2 Days /Parity G1,P0(0,0,0,0) Multiple Fetuses No, Najera Current Weight 79kg Pre-Preg Weight 77kg Height 155cm BMI 32.9kg/m2 Blood Type O POS RPR Non-Reactive RPR, External Nonreactive Rubella, External Immune Hepatitis B, External Negative HIV Antibodies, External Negative 1GTT is wnl GBBS neg REVIEW OF SYSTEMS: All negative ACTIVE PROBLEMS: (4) Anxiety ([id number]) Body mass index 30+ - obesity ([id number]) ([id number]) UTI (urinary tract infection) ([id number]) ALLERGIES: (1) CeleXA FAMILY HISTORY: No inheritable diseases. SOCIAL HISTORY: . Denies tobacco use Denies alcohol use. No illicit drug use. PHYSICAL EXAM: VITALS: CmgfewDtdrYCDukidNPHiQ1PCZ1PuhxUo(kg) 03/30 10:5735.6--7518----03/30 78.0 03/30 10:0535.9 03/30 09:0536.1 03/30 08:53----9518---- 24 Hr Tmax: 36.1 at 03/30 09:05 36 Hr Tmax: 36.1 at 03/30 09:05 Vital Signs are the last 5 in the past 48 hours. Weights display the last 5 within 7 days. Initial Wt: 03/30 78.0 kg 172 lb Current Wt: 03/30 78.0 kg 172 lb GENERAL: Young white female in no acute distress HEENT: Normal CARDIOVASCULAR: RRR RESPIRATORY: CTA B ABDOMEN: Gravid with clinical estimated weight of 6 to 61/2 pounds. Monitor shows contractions every 2 -3 minutes FHR is 140s and reactive. Category 1. Pelvic exam:2-3/80%/-2/midposition several hours ff admission with spontaneous ctxs. On admission patient was 2/50%/-2, posterior . EXREMETIES: Nontender without edema. Reflexes are normal at 2/4. NEUROLOGICAL: Grossly normal PSYCHIATRIC: Grossly normal Diagnostics:Estimated FW: 2553 gm. 5 lb 10 oz 15 %Tile on 03/15/2023 IMPRESSION: 1. 39.2 week intrauterine 2. Spontaneous rupture of membranes 3. Early labor Plan: Admit for labor support in anticipation of spontaneous vaginal delivery. Digitally Signed by LONG DICKERSON MD on 04/02/2023 11:08 AM [facility]06-20-2023 Anesthesiology Consult note Patient: LUZ OLIVEIRA Age: 22 years Sex: Female : 2000 Associated Diagnoses: None Author: JENNIFER MERA [employer] Preoperative Information laboring Anesthesia history Patient's history: negative. Family's history: negative. Health Status Allergies: Allergic Reactions (Selected) Severity Not Documented CeleXA- Suicidal ideation., Allergies (1) ActiveReaction CeleXASuicidal ideation Current medications: (Selected) Inpatient Medications Ordered Bicitra: 30 mL, Oral, AsDirected, PRN: Gastric Upset Brethine: 0.25 mg, 0.25 mL, Subcutaneous, AsDirected, PRN: Other (see order comments) Cytotec: 1,000 mcg, 5 tab(s), Rectal, Once, PRN: Other (see order comments) Hemabate: 250 mcg, 1 mL, Intramuscular, Once, PRN: Other (see order comments) LR 1,000 mL: 100 mL/hr, Intravenous LR 500 mL Bolus: 500 mL, IV Bolus, AsDirected, PRN: Other (see order comments) Methergine: 0.2 mg, 1 mL, Intramuscular, Once, PRN: Other (see order comments) Nubain: 10 mg, 1 mL, IV Push, q2h, PRN: Pain Oxytocin for IV (mL/hr) 20 unit(s) + LR Premix Diluent 1,000 mL: 999 mL/hr, Intravenous Pitocin: 20 unit(s), 2 mL, Intramuscular, Once, PRN: Other (see order comments) Xylocaine HCl 1% injectable solution: 20 mg, 2 mL, Perineum, AsDirected, PRN: to perineal sutures Zofran: 4 mg, 2 mL, IV Push, q4h, PRN: Nausea tranexamic acid 1 g / 100 mL 0.7% NaCl PMX: 1 gram(s), 100 mL, 300 mL/hr, IV Piggyback, AsDirected,PRN: Other (see order comments) Prescriptions Prescribed Reglan 10 mg oral tablet: See Instructions, 1 tab(s) Oral q 6 hours prn headaches with tylenol, 12 tab(s), 0 Refill(s) Vitamin B2 100 mg oral tablet: 1 tab(s), Oral, qDay, 30 tab(s), 2 Refill(s) Zofran 8 mg oral tablet: 8 mg, 1 tab(s), Oral, TID, for 5 day(s), 15 tab(s), 0 Refill(s) Documented Medications Documented AD oral tablet: 1 tab(s), Oral, Daily, 30 tab(s), 0 Refill(s) Vitamin B6: Oral, qDay, 0 Refill(s), Medications (13) Active Scheduled: (0) Continuous: (2) Lactated Ringers 1,000 mL 1,000 mL, Intravenous, 100 mL/hr Oxytocin 20 units in Lactated Ringers 1000 mL 20 unit(s) + LR Premix Diluent 1,000 mL 1,000 mL, Intravenous, 999 mL/hr PRN: (11) carboprost 250 mcg/ml 1mL ampule 250 mcg 1 mL, Intramuscular, Once citric acid-sodium citrate 334 mg-500 mg/5 mL (30 mL) Lashae UD 30 mL, Oral, AsDirected Lactated Ringers Injection 500 mL * Bolus * 500 mL, IV Bolus, AsDirected lidocaine 1% (MPF) 2 mL vial pf 20 mg 2 mL, Perineum, AsDirected methylergonovine 0.2 mg/mL (1 mL) ampule 0.2 mg 1 mL, Intramuscular, Once misoprostol 200 mcg tablet 1,000 mcg 5 tab(s), Rectal, Once nalbuphine 10 mg/mL (1 mL) Solution 10 mg 1 mL, IV Push, q2h ondansetron 2 mg/ 1 mL 2 mL INJ 4 mg 2 mL, IV Push, q4h oxytocin 10 units/mL 1 mL vial 20 unit(s) 2 mL, Intramuscular, Once terbutaline 1 mg/ml vial 0.25 mg 0.25 mL, Subcutaneous, AsDirected tranexamic acid PMX 1 gram(s) 100 mL, IV Piggyback, AsDirected Problem list: Medical Anxiety / SNOMED CT [id number] / Confirmed Body mass index 30+ - obesity / SNOMED CT [id number] / Confirmed / SNOMED CT [id number] / Confirmed UTI (urinary tract infection) / SNOMED CT [id number] / Confirmed, Active Problems (4) Anxiety Body mass index 30+ - obesity UTI (urinary tract infection) Histories Past Medical History: Active Anxiety ([id number]) UTI (urinary tract infection) ([id number]) Family History: Cancer Grandparent Comments: 10/22/2022 14:27 AUGIE Navarro Poonam Sanchez [employer] maternal, brain Cardiac pacemaker Mother Diabetes mellitus Mother Asthma Grandparent Breast cancer Grandparent Heart disease Mother HTN - Hypertension Father COPD Grandparent Diabetes Grandparent Procedure history: [place] tooth ([id number]). Social History Social & Psychosocial Habits Alcohol 08/12/2017Risk Assessment: Denies Alcohol Use 03/18/2023 Use: Past Substance Abuse 08/12/2017Risk Assessment: Denies Substance Abuse 10/22/2022 Use: Never Tobacco 10/22/2022 Tobacco Use: Never (less than 100 in l Home/Environment 01/26/2023 Domestic Concerns None Living situation: Home/Independent Spouse Name Luis Daniel Marital Status of Patient if Patient Independent Adult: Nutrition/Health 10/22/2022 Caffeine intake amount: 3-4 servings daily . Physical Examination Vital Signs 03/30/2023 10:57 EDT Temperature Temporal Artery 35.6 DegC Heart Rate Monitored 75 bpm Respiratory Rate 18 br/min Systolic Blood Pressure Non-Invasive 101 mmHg Diastolic Blood Pressure Non-Invasive 59 mmHg LOW 03/30/2023 10:05 EDT Temperature Temporal Artery 35.9 DegC 03/30/2023 9:05 EDT Temperature Temporal Artery 36.1 DegC 03/30/2023 8:53 EDT Heart Rate Monitored 95 bpm Respiratory Rate 18 br/min Systolic Blood Pressure Non-Invasive 123 mmHg Diastolic Blood Pressure Non-Invasive 70 mmHg Vital Signs(last 24 hrs) Last Charted Heart Rate Atarueyov61 bpm (MAR 30 10:57) Resp Rate 18 br/min (MAR 30 10:57) TGG524 mmHg (MAR 30 10:57) DBPL 59mmHg (MAR 30 10:57) BMI32.47 (MAR 30 07:49) Measurements from flowsheet : Measurements 03/30/2023 7:49 EDT Height 155.0 cm Admission Weight 78 kg [place] Body Weight 47.85 kg BSA Admission 1.77 Body Mass Index 32.47 kg/m2 Pain assessment: Pain Assessment 03/30/2023 10:57 EDT Primary Pain Intensity 3 Pain Scale Type 0-10 Pain scale 03/30/2023 9:05 EDT Primary Pain Location Abdomen Primary Pain Intensity 5 Primary Pain Quality Contraction Pain Scale Type 0-10 Pain scale . General: Alert and oriented. Airway: Normal temporomandibular joint mobility, Normal mouth, Normal neck range of motion. Mallampati classification: III (soft palate, base of uvula visible). Dentition Evaluation: Denies loose/chipped teeth. Respiratory: Respirations are non-labored. Cardiovascular: Normal rate. Neurologic: Alert, Oriented. Review / Management Results review: Labs (Last four charted values) WBC 10.8(MAR 30) Hgb 12.9(MAR 30) Hct 37.2(MAR 30) Plt 169(MAR 30) , Lab results 03/30/2023 12:[address] Graham in to see pt 03/30/2023 11:27 EDT Uterine Contraction Monitoring Method External toco Uterine Contraction Frequency 2-3 Uterine Contraction Duration 40-50 Uterine Contraction Intensity, Ext Palp Mild Uterine Resting Tone, External Soft Uterine Activity Regular contractions Baby A FHR Baseline: 130 bpm FHR Baseline Variability: Moderate variability FHR Accelerations: Present FHR Deceleration: Absent FHR Interpretation Category: Category One 03/30/2023 11:26 EDT Activity Status ADL Resting 03/30/2023 11:13 EDT Notify date/time 03/30/2023 11:13 Provider Notified LONG DICKERSON MD Notification Method Phone Information Communicated Nurse communication Details Communicated updated on pt status, nubain given 03/30/2023 11:[address] Dickerson updated on pt status 03/30/2023 10:57 EDT Temperature Temporal Artery 35.6 DegC Heart Rate Monitored 75 bpm Respiratory Rate 18 br/min Systolic Blood Pressure Non-Invasive 101 mmHg Diastolic Blood Pressure Non-Invasive 59 mmHg LOW Primary Pain Intensity 3 Pain Scale Type 0-10 Pain scale 03/30/2023 10:40 EDT Patient Position, OB Right tilt 03/30/2023 10:39 EDT Cervix Dilation 3 cm Cervix Effacement 80 Station -1 Cervical Consistency Soft Cervical Position Posterior Presenting Part Vertex Presenting Part Applied to Cervix Yes Vaginal Exam Performed By ZAK Spencer Morgan's Score 9 03/30/2023 10:34 EDT nalbuphine 10 mg mg 03/30/2023 10:33 EDT Monitoring Annotations Primary nurse at bedside, SVE 3/80%/-1/post 03/30/2023 10:30 EDT Uterine Contraction Monitoring Method External toco Uterine Contraction Frequency 2-3 Uterine Contraction Duration 30-40 Uterine Contraction Intensity, Ext Palp Mild Uterine Resting Tone, External Soft Uterine Activity Regular contractions Baby A FHR Baseline: 135 bpm FHR Baseline Variability: Moderate variability FHR Accelerations: Present FHR Deceleration: Absent FHR Interpretation Category: Category One 03/30/2023 10:05 EDT Monitoring Annotations ambulating hallway 03/30/2023 10:05 EDT Temperature Temporal Artery 35.9 DegC 03/30/2023 10:01 EDT Ambulation Ambulation in Fried 03/30/2023 9:54 EDT Monitoring Annotations telemetry on; Primary nurse at bedside 03/30/2023 9:46 EDT Monitoring Annotations up to BR 03/30/2023 9:30 EDT Uterine Contraction Monitoring Method External toco Uterine Contraction Frequency 2-3 Uterine Contraction Duration 40-50 Uterine Contraction Intensity, Ext Palp Mild Uterine Resting Tone, External Soft Uterine Activity Regular contractions Patient Position, OB Left tilt Baby A FHR Baseline: 135 bpm FHR Baseline Variability: Moderate variability FHR Accelerations: Present FHR Deceleration: Absent FHR Interpretation Category: Category One 03/30/2023 9:05 EDT Temperature Temporal Artery 36.1 DegC Primary Pain Location Abdomen Primary Pain Intensity 5 Primary Pain Quality Contraction Pain Scale Type 0-10 Pain scale 03/30/2023 9:03 EDT Cervix Dilation 3 cm Cervix Effacement 70 Station -2 Cervical Consistency Soft Cervical Position Mid Presenting Part Vertex Vaginal Exam Performed By LONG DICKERSON MD Morgan's Score 8 Baby A Membrane Status: S.R.O.M. ROM Date, Time: 03/30/2023 6:00 Nitrazine, OB: Positive Amniotic Fluid Color/Descrip: Clear 03/30/2023 8:53 EDT Heart Rate Monitored 95 bpm Respiratory Rate 18 br/min Systolic Blood Pressure Non-Invasive 123 mmHg Diastolic Blood Pressure Non-Invasive 70 mmHg 03/30/2023 8:30 EDT Uterine Contraction Monitoring Method External toco Uterine Contraction Frequency 2-3 Uterine Contraction Duration 30-50 Uterine Contraction Intensity, Ext Palp Mild Uterine Resting Tone, External Soft Uterine Activity Regular contractions Baby A FHR Baseline: 145 bpm FHR Baseline Variability: Moderate variability FHR Accelerations: Present FHR Deceleration: Absent FHR Interpretation Category: Category One 03/30/2023 8:00 EDT Hand Left 03/30/2023 18 gauge Peripheral IV Activity: Insert new site Peripheral IV Dressing Condition: Clean, Dry, Intact Peripheral IV Dressing Activity: Transparent dressing Peripheral IV Line Status/Patency: Continuous infusion Peripheral IV Site Condition: No complications Peripheral IV Equipment: Manual, Extension set, Stopcock, IV Pump, PRN Adaptor Peripheral IV Number of Attempts: 1 03/30/2023 7:57 EDT WBC 10.8 10^3/mcL RBC 4.01 10^6/mcL LOW Hgb 12.9 G/dL Hct 37.2 % MCV 92.8 fL MCH 32.2 pg HI MCHC 34.7 G/dL RDW 13.8 % Platelet 169 10^3/mcL MPV 9.7 fL Neutrophil % 75.7 % Lymphocyte % 16.8 % Monocyte % 7.2 % Eosinophil % 0.2 % Basophil % 0.1 % Neutrophil, Absolute 8.2 10^3/mcL HI Lymphocyte, Absolute 1.8 10^3/mcL Monocyte, Absolute 0.8 10^3/mcL Eosinophil, Absolute 0.0 10^3/mcL Basophil, Absolute 0.0 10^3/mcL ABO/Rh Interp O POS Antibody Screen Gel Negative ABSC 03/30/2023 7:49 EDT Designated Person #1 We May Share PHI Luz Designated Person #1 Relationship Mother Privacy Restrictions Requested None Height 155.0 cm Admission Weight 78 kg [place] Body Weight 47.85 kg BSA Admission 1.77 Body Mass Index 32.47 kg/m2 Expected Outcome Live Patient Type Inpatient Thrombosis Risk Factors (1) or post- less than 1 month Thrombosis Risk Factor Add'l Assessment NA Thrombosis Risk Score 1 Status Yes Risk Factors, Antepartum Current Preg None Movement Present Vaginal bleeding No PPH Risk Low risk for hemorrhage PPH Low Risk Factors Najera , Less than 4 previous deliveries, Unscarred uterus, Absence of hemorrhage history Feeding Breast milk Anesthesia/Pain Medication During Labor None planned Baby For Adoption No Surrogate No Discharge [place] Physician [facility] Participant No Safe Sleep Environment for Baby Yes Safe Sleep Environment Outside Home Yes Maternal Transport No Thoughts of Harming Others - History No Thoughts of Suicide - History No Coping Effective Emotional Abuse History Denies Physical Abuse History Denies Sexual Abuse Denies Hospital Clergy to Visit Patient Verbalizes No Spiritual Needs Financial Concerns Re: Hospital/Disch No Living Situation Home independently Current Home Treatments None Professional Skilled Services None Special Services and Community Resources None Advanced Directives No - refuses information Infectious Disease Symptoms Patient states no symptoms Infectious Disease Recent Exposure No Alcohol and Drug Use No Employee of Institutional Living No Health Care Employee No History of Exposure to TB No History of Positive Chest X-Ray for TB No History of Positive TB Skin Test No Homeless No Known Immunosuppression No Recent Immigrant No Resident of Institutional Living No Bloody Sputum No Fatigue No Fever No Loss of Appetite No Night Sweats No Persistent Cough > 3 Weeks No Weight Loss No Safety Brochure Information Reviewed Yes Josef Osei Video Viewed Previously viewed Teaching Evaluation Refused information Preferred Written Language [place] Preferred Spoken Language [place] Chief Complaint SROM Mode of Arrival Ambulatory Information Given by Patient Patient's Current Physicians Dr [facility] Emergency Contact Number Luis Daniel Oliveira [phone] Belongings At Bedside Cell phone, Supervisor Grips Personal Home Medications Received No home medications were brought in Belongings Sent Home None Belongings to Security/Secured in Dept None Discharge To, Anticipated Home independently Other Anticipated Needs After Discharge No Anticoagulants Taken In Past 6 Wks. No Prev Test Positive/Diagnosis w/COVID-19 No Current Quarantine/Isolated any Illness No Any Contact with Sick Animals/Birds No Traveled Anywhere in Last 30 Days No No Able To Drink Order Detail Yes Able To Sign Consents Order Detail Yes Code Status Order Detail Full code IV Order Detail Yes Dialysis Schedule Order Detail N/A Has Diabetes Order Detail No Isolation Precautions Order Detail None Nurse Collect Order Detail 0 Oxygen Order Detail No Order Detail Yes Prior Valve Replacement Order Detail No Transport Mode Order Detail Ambulatory Anesthesia/Transfusions Prior anesthesia Admission Note-Nursing Patient History OB 03/30/2023 7:30 EDT Uterine Contraction Monitoring Method External toco Uterine Contraction Frequency 2-3 Uterine Contraction Duration 30-50 Uterine Contraction Intensity, Ext Palp Mild Uterine Resting Tone, External Soft Uterine Activity Regular contractions Patient Position, OB Left tilt Baby A FHR Baseline: 145 bpm FHR Baseline Variability: Moderate variability FHR Accelerations: Present FHR Deceleration: Absent FHR Interpretation Category: Category One 03/30/2023 7:14 [facility] History and Physical History and Physical . Assessment and Plan [place] [employer] Anesthesiologists (ASA) physical status classification: Class II. Anesthetic Preoperative Plan Anesthetic technique: Epidural. Informed consent: signed by patient. Digitally Signed by JENNIFER MERA on 03/30/2023 01:37 PM [facility]06-20-2023 Note Date of Service 03/30/23 Chief Complaint SROM History of Present Illness 22 yo G1@39.2 presents with large gush of fluid around 0600 and regular contractions. c/bobesity and recent growth US AC 7%le overall 15%le. Noted blood tinged fluid. Growth at 37 weeks for obesity showed borderline low fluid 5 cm, growth in 15%le. VENIPUNCTURIST history: Menarche: Menses: Menopause: n/a HRT: n/a Contraception: NA Prior contraception: OCPs STDs: denies Sexually active: yes, no issues Hx of abuse: denies Pap: 2021 NILM Hx of abnormal pap: yes LSIL 2020 Gardasil: NA Pregnancies: first Hereditary genetic disease carrier testing: Infertility: took 3 years to conceive, no meds Chronic pelvic pain: denies Gynecology past issues or surgeries: Mammogram: NA Hx of breast bx: no Colonoscopy: DXA: Family VENIPUNCTURIST history: Breast/colon/ovarian/uterine cancer: MGM w breast ca at 53, pat uncle w pancreatic cancer in 40s Hereditary cancer carrier testing: Osteoporosis or hip fractures: Blood clots, bleeding or clotting disorders: Genetic conditions or defects: Recurrent losses, stillbirth or infertility: Review of Systems Constitutional: Negative for fever, negative for chills, Eyes: Negative for vision changes, Cardiovascular: Negative for chest pain, negative for lightheadedness Respiratory: Negative for shortness of breath at rest, negative for shortness of breath with activity, Gastrointestinal: Negative for abdominal pain, negative for nausea, negative for vomiting, negativefor dyschezia, negative for hematochezia Genitourinary: Negative for dysuria,positive for leakage, negative vaginal discharge, Neurological: Negative for abnormal or changing headaches, negative for numbness, negative for weakness, negativefor dizziness Physical Exam Vitals and Measurements No qualifying data available. General: well groomed, well developed female who appears stated age Neuro: alert and oriented CN II-XII grossly intact Psych: pleasant mood, normal affect HEENT: NC/AT EOMI, neck without thyromegaly. no cervical lymphadenopathy CV: S1/S2 No MRCG, RRR Chest: CTABL no WRR Abd: S/NT/ND, BS present, no HSM. gravid term Extremities: warm dry and intact, no clubbing, cyanosis or edema present. no rashes, varicosities, scars. no visible tattoos or piercings. NST 130s mod no decles + accels toco q 3 minutes, mild to moderate Lab Results Prenatals: T&S O pos ab neg CBC 7.2/13.6/40.5/247 T pallidum ab non reactive HIV non reactive Hep C negative Hep Bs Ag non reactive GC/CT negative Rubella immune Varicella ? Ur Cx: 50-100 normal mariana CMP TSH 1.19 Pap 08/2022 NILM Genetic testing 28 week labs CBC 1 hour OGCT 149 RPR non reactive 3 hour wnl: 84/115/127/120 36 week labs GBS negative Imaging Results and Diagnostics 03/15:s/v/2553g(5#10oz)/173bpm/5cm/ant-gr3 Assessment/Plan 39 weeks gestation of Labor w SROM if no cervical progress by noon start pitocin Orders: carboprost, Start: 03/30/23 7:19:00 EDT, Dose = 250 mcg, = 1 mL, Intramuscular, Once, PRN, Other (see order comments), 03/30/23 7:19:00 EDT citric acid-sodium citrate, Start: 03/30/23 7:19:00 EDT, Dose = 30 mL, Soln, Oral, AsDirected, PRN,Gastric Upset, 03/30/23 7:19:00 EDT Lactated Ringers Infusion, Start: 03/30/23 7:19:00 EDT, Dose = 500 mL, Soln, IV Bolus, AsDirected, PRN, Other (see order comments), Rate: 500 mL/hr, 03/30/23 7:19:00 EDT Lactated Ringers Infusion 1,000 mL, Start: 03/30/23 7:19:00 EDT, Rate: 100 mL/hr, 03/30/23:19:00 EDT lidocaine, Start: 03/30/23 7::00 EDT, Dose = 20 mg, = 2 mL, Perineum, AsDirected, PRN, to perineal sutures, 1 dose(s), Stop: Limited # of times, 03/30/23:19:00 EDT methylergonovine, Start: 03/30/23 7:19:00 EDT, Dose = 0.2 mg, = 1 mL, Intramuscular, Once, PRN, Other (see order comments), 03/30/23::00 EDT miSOPROStol, Start: 03/30/23 7::00 EDT, Dose = 1,000 mcg, Rectal, Once, PRN, Other (see order comments), 03/30/23::00 EDT nalbuphine, Start: 03/30/23 7::00 EDT, Dose = 10 mg, = 1 mL, IV Push, q2h, PRN, Pain, 03/30/23::00 EDT ondansetron, Start: 03/30/23 7::00 EDT, Dose = 4 mg, = 2 mL, IV Push, q4h, PRN, Nausea, 03/30/23::00 EDT oxytocin, Start: 03/30/23 7::00 EDT, Dose = 20 unit(s), = 2 mL, Intramuscular, Once, PRN, Other (see order comments), 03/30/23::00 EDT oxytocin 20 unit(s) + LR Premix Diluent 1,000 mL, Start: 03/30/23::00 EDT, Rate: 999 mL/hr, 03/30/23:19:00 EDT terbutaline, Start: 03/30/23:19:00 EDT, Dose = 0.25 mg, = 0.25 mL, Subcutaneous, AsDirected, PRN,Other (see order comments), 03/30/23:19:00 EDT tranexamic acid, Start: 03/30/23 7:19:00 EDT, Dose = 1 gram(s), IV Piggyback, AsDirected, PRN, Other (see order comments), Infuse over: 20 minute(s), 03/30/23 7:19:00 EDT Ambulate Antiembolism Stocking Application Knee High Complete Blood Count Consult to Anesthesia Diet Order Epidural Anesthesia Monitoring Intake and Output IV Catheter Insertion/Care Oxygen Administration (LDRP) Prn Adapter Rapid Plasma Reagin Test Straight Cath Type and Screen (AO) Urinary Catheter Insertion/Care Vital Signs Vital Signs Call Parameters Problem List/Past Medical History Ongoing Anxiety Body mass index 30+ - obesity UTI (urinary tract infection) Historical No qualifying data Procedure/Surgical History [place] tooth Medications Home Medications (5) Active AD oral tablet 1 tab(s), Oral, Daily Reglan 10 mg oral tablet See Instructions Vitamin B2 100 mg oral tablet 1 tab(s), Oral, qDay Vitamin B6 , Oral, qDay Zofran 8 mg oral tablet 8 mg = 1 tab(s), Oral, TID Allergies CeleXA (Suicidal ideation) Social History Smoking Status - 08/12/2017 Never smoker Alcohol - Denies Alcohol Use, 08/12/2017 Use: Past., 03/18/2023 Home/Environment Domestic Concerns: None. Living situation: Home/Independent. Spouse Name: Luis Daniel. Marital Status: ., 01/26/2023 Nutrition/Health Caffeine intake amount: 3-4 servings daily., 10/22/2022 Substance Abuse - Denies Substance Abuse, 08/12/2017 Use: Never., 10/22/2022 Tobacco Nicotine Use: Never (less than 100 in lifetime)., 10/22/2022 Family History Asthma: Grandparent. Breast cancer: Grandparent. COPD: Grandparent. Cancer: Grandparent. Cardiac pacemaker: Mother. Diabetes: Grandparent. Diabetes mellitus: Mother. HTN - Hypertension: Father. Heart disease: Mother. Immunizations tetanus/diphth/pertuss (Tdap) adult/adol: 0.5 mL (02/01/23) Code Status No qualifying data available. Digitally Signed by SUNIL GRAHAM MD on 03/30/2023 07:30 AM [facility]05-28-2023 Hospital Discharge instructions Patient Education 03/07/2023 20:26:05 7 - Labor and Delivery Outpatient Instructions (CUSTOM) [facility] OUTPATIENT HOME-GOING INSTRUCTIONS _X_ You are to follow up with your physician in _2__ days. ACTIVITY ___ Bedrest _X__Activity as tolerated ___ No work/school for ___ days. ___Other PRESCRIPTION GIVEN ___Yes NAUSEA/VOMITING ___ Take small, frequent amounts of clear liquids. Avoid fruit juices and milk. ___ Increase fluid intake to a minimum of 8 ounces of fluid every hour while awake. ___ Soft diet. Rice, crackers, bananas, Jell-O, cooked carrots, applesauce. ___ Perkins diet. Avoid caffeine, chocolate, alcohol, spiced/greasy foods. URINARY TRACT INFECTION ___ Drink 8-12 glasses of water every day. ___ Urinate frequently; do not limit fluids to reduce frequency of urination. ___ Call your physician if burning and frequency with urination returns after taking all your medication. ___ Call your physician if you have a temperature of 100.4 degrees Fahrenheit or higher. ___ Wipe from front to back. SIGNS OF PRE-ECLAMPSIA ___ Severe heartburn. ___ Persistent headache not relieved by Tylenol. ___ Increased in swelling of face, hands and feet. ___ Blurred vision, double vision, or spots in the eyes. ___ Persistent vomiting. ___ *Convulsions or seizures. LABOR ___ Restrict activity. ___ Drink 8-12 glasses of water every day. ___ Urinate frequently ___ Pelvic rest. No sexual intercourse/ Call your physician if you experience: ___ Increase in vaginal discharge, leaking fluid, or vaginal bleeding. ___ More than 4, 5, or 6 contractions in one hour. ___ Burning and frequency with urination. DECREASED MOVEMENT __X_ Lie down on your left side, drink some fluids and relax. Count the movements. You need to have 10 movements in 2 hours. __X_ If you do not feel the 10 movements, call your physician. OTHER ___ After an exam you may experience some spotting or discharge. As long as it is not bright red and heavy like a period or continues to leak as if your water broke, it is to be expected. ___ LABOR Call your physician if you experience: _X__ Painful uterine contractions every __3-5_ minutes for __1-2_ hours. _X__A gush or continuous trickle of watery discharge. COME TO THE HOSPITAL AND CALL PHYSICIAN IF: __X_ Your abdomen feels continually firm. _X__ *Bleeding is bright red and enough to saturate a pad in one hour or less. *Call 911 or go to the nearest Emergency Room for assistance. Form [id number] D: 09/18 Document Released: 09/27/2006 Document Revised: 09/15/2012 Document Reviewed: 09/27/2006 ExitCare Patient Information 2012 [employer]guide. Follow Up Care 03/07/2023 19:56:20 With:WILTON AN, MARTINEZ Bautista Address: [address] [place] [address] [facility] [place] [address] [phone] When:03/09/2023 [facility] 05-27-2023 Hospital Discharge instructions Patient Education 03/06/2023 18:27:44 7 - Labor and Delivery Outpatient Instructions (CUSTOM) [facility] OUTPATIENT HOME-GOING INSTRUCTIONS _X_ You are to follow up with your physician as scheduled ACTIVITY ___ Bedrest ___Activity as tolerated ___ No work/school for ___ days. _x__Other _Rest tonight PRESCRIPTION GIVEN ___Yes NAUSEA/VOMITING ___ Take small, frequent amounts of clear liquids. Avoid fruit juices and milk. ___ Increase fluid intake to a minimum of 8 ounces of fluid every hour while awake. ___ Soft diet. Rice, crackers, bananas, Jell-O, cooked carrots, applesauce. ___ Perkins diet. Avoid caffeine, chocolate, alcohol, spiced/greasy foods. URINARY TRACT INFECTION ___ Drink 8-12 glasses of water every day. ___ Urinate frequently; do not limit fluids to reduce frequency of urination. ___ Call your physician if burning and frequency with urination returns after taking all your medication. ___ Call your physician if you have a temperature of 100.4 degrees Fahrenheit or higher. ___ Wipe from front to back. SIGNS OF PRE-ECLAMPSIA ___ Severe heartburn. ___ Persistent headache not relieved by Tylenol. ___ Increased in swelling of face, hands and feet. ___ Blurred vision, double vision, or spots in the eyes. ___ Persistent vomiting. ___ *Convulsions or seizures. LABOR ___ Restrict activity. ___ Drink 8-12 glasses of water every day. ___ Urinate frequently ___ Pelvic rest. No sexual intercourse/ Call your physician if you experience: __x_ Increase in vaginal discharge, leaking fluid, or vaginal bleeding. __x_ More than 4, 5, or 6 contractions in one hour. _x__ Burning and frequency with urination. DECREASED MOVEMENT _x__ Lie down on your left side, drink some fluids and relax. Count the movements. You need to have 10 movements in 2 hours. __x_ If you do not feel the 10 movements, call your physician. OTHER ___ After an exam you may experience some spotting or discharge. As long as it is not bright red and heavy like a period or continues to leak as if your water broke, it is to be expected. ___ LABOR Call your physician if you experience: ___ Painful uterine contractions every ___ minutes for ___ hours. _x__A gush or continuous trickle of watery discharge. COME TO THE HOSPITAL AND CALL PHYSICIAN IF: __x_ Your abdomen feels continually firm. __x_ *Bleeding is bright red and enough to saturate a pad in one hour or less. *Call 911 or go to the nearest Emergency Room for assistance. Form [id number] D: 09/18 Document Released: 09/27/2006 Document Revised: 09/15/2012 Document Reviewed: 09/27/2006 ExitCare Patient Information 2011 [employer]. [facility] 04-18-2023 Hospital Discharge instructions Patient Education 01/26/2023 03:27:22 7 - Labor and Delivery Outpatient Instructions (CUSTOM) [facility] OUTPATIENT HOME-GOING INSTRUCTIONS _X_ You are to follow up with your physician as scheduled. ACTIVITY ___ Bedrest __x_Activity as tolerated ___ No work/school for ___ days. ___Other PRESCRIPTION GIVEN ___Yes NAUSEA/VOMITING ___ Take small, frequent amounts of clear liquids. Avoid fruit juices and milk. ___ Increase fluid intake to a minimum of 8 ounces of fluid every hour while awake. ___ Soft diet. Rice, crackers, bananas, Jell-O, cooked carrots, applesauce. ___ Perkins diet. Avoid caffeine, chocolate, alcohol, spiced/greasy foods. URINARY TRACT INFECTION ___ Drink 8-12 glasses of water every day. ___ Urinate frequently; do not limit fluids to reduce frequency of urination. ___ Call your physician if burning and frequency with urination returns after taking all your medication. ___ Call your physician if you have a temperature of 100.4 degrees Fahrenheit or higher. ___ Wipe from front to back. SIGNS OF PRE-ECLAMPSIA ___ Severe heartburn. _x__ Persistent headache not relieved by Tylenol. _x__ Increased in swelling of face, hands and feet. _x__ Blurred vision, double vision, or spots in the eyes. ___ Persistent vomiting. ___ *Convulsions or seizures. LABOR ___ Restrict activity. __x_ Drink 8-12 glasses of water every day. _x__ Urinate frequently ___ Pelvic rest. No sexual intercourse/ Call your physician if you experience: __xx_ Increase in vaginal discharge, leaking fluid, or vaginal bleeding. __x_ More than 4, 5, or 6 contractions in one hour. ___ Burning and frequency with urination. DECREASED MOVEMENT ___ Lie down on your left side, drink some fluids and relax. Count the movements. You need tohave 10 movements in 2 hours. ___ If you do not feel the 10 movements, call your physician. OTHER ___ After an exam you may experience some spotting or discharge. As long as it is not bright red and heavy like a period or continues to leak as if your water broke, it is to be expected. ___ LABOR Call your physician if you experience: ___ Painful uterine contractions every ___ minutes for ___ hours. _x__A gush or continuous trickle of watery discharge. COME TO THE HOSPITAL AND CALL PHYSICIAN IF: _x__ Your abdomen feels continually firm. _x__ *Bleeding is bright red and enough to saturate a pad in one hour or less. *Call 911 or go to the nearest Emergency Room for assistance. Form [id number] D: 09/18 Document Released: 09/27/2006 Document Revised: 09/15/2012 Document Reviewed: 09/27/2006 ExitCare Patient Information 2012 [employer]ourguide. Follow Up Care 01/26/2023 00:53:10 With:Follow up with primary care provider Address:Unknown When: Unknown [facility] 02-25-2023 Miscellaneous Notes* Telephone Encounter - Alex Garcia DO - 12/05/2022 5:08 PM EST Not a [facility] Discharge instructions Patient Education 11/18/2022 13:18:57 7 - Labor and Delivery Outpatient Instructions (CUSTOM) [facility] AND DELIVERY OUTPATIENT HOME-GOING INSTRUCTIONS _X_ You are to follow up with your physician in ___ days/weeks. ACTIVITY ___ Bedrest ___Activity as tolerated ___ No work/school for ___ days. ___Other PRESCRIPTION GIVEN ___Yes NAUSEA/VOMITING ___ Take small, frequent amounts of clear liquids. Avoid fruit juices and milk. ___ Increase fluid intake to a minimum of 8 ounces of fluid every hour while awake. ___ Soft diet. Rice, crackers, bananas, Jell-O, cooked carrots, applesauce. ___ Perkins diet. Avoid caffeine, chocolate, alcohol, spiced/greasy foods. URINARY TRACT INFECTION ___ Drink 8-12 glasses of water every day. ___ Urinate frequently; do not limit fluids to reduce frequency of urination. ___ Call your physician if burning and frequency with urination returns after taking all your medication. ___ Call your physician if you have a temperature of 100.4 degrees Fahrenheit or higher. ___ Wipe from front to back. SIGNS OF PRE-ECLAMPSIA ___ Severe heartburn. ___ Persistent headache not relieved by Tylenol. ___ Increased in swelling of face, hands and feet. ___ Blurred vision, double vision, or spots in the eyes. ___ Persistent vomiting. ___ *Convulsions or seizures. LABOR ___ Restrict activity. ___ Drink 8-12 glasses of water every day. ___ Urinate frequently ___ Pelvic rest. No sexual intercourse/ Call your physician if you experience: ___ Increase in vaginal discharge, leaking fluid, or vaginal bleeding. ___ More than 4, 5, or 6 contractions in one hour. ___ Burning and frequency with urination. DECREASED MOVEMENT ___ Lie down on your left side, drink some fluids and relax. Count the movements. You need tohave 10 movements in 2 hours. ___ If you do not feel the 10 movements, call your physician. OTHER ___ After an exam you may experience some spotting or discharge. As long as it is not bright red and heavy like a period or continues to leak as if your water broke, it is to be expected. ___ LABOR Call your physician if you experience: ___ Painful uterine contractions every ___ minutes for ___ hours. ___A gush or continuous trickle of watery discharge. COME TO THE HOSPITAL AND CALL PHYSICIAN IF: ___ Your abdomen feels continually firm. ___ *Bleeding is bright red and enough to saturate a pad in one hour or less. *Call 911 or go to the nearest Emergency Room for assistance. Form [id number] D: 09/18 Document Released: 09/27/2006 Document Revised: 09/15/2012 Document Reviewed: 09/27/2006 ExitCare Patient Information 2012 [employer]ourguide. Follow Up Care 11/18/2022 11:50:05 With:SUNIL GRAHAM Address: [address] [place] [address] [facility] [place] [address]- [phone] Business (1) When: Unknown [facility] 01-19-2023 NoteHNO ID: [id number] Author: Tad Shaw DO Service: Obstetrics Author Type: Resident Type: Progress Notes Filed: 10/29/2022 4:22 AM Note Text: Patient nausea significantly improved. No further episodes of emesis. Received 1L D5. UA dip negative for infection. Culture pending but low suspicion for UTI. The patient remained afebrile and hemodynamically stable for discharge. Patient given prescription for Diclegis and zofran. Given ER return precautions and close follow-up instructions with her OB provider. All questions and concerns addressed. Patient understanding and agreeable with plan. Tad Shaw DO 4:21 AM 10/29/2022[facility]01[facility]19[facility]20[facility] NoteHNO ID: [id number] Author: Tad Shaw DO Service: Obstetrics Author Type: Resident Type: Progress Notes Filed: 10/29/2022 3:26 AM Note Text: Attestation signed by Cheko Mcclelland MD at 11/14/2022 3:57 PM Attending Note I evaluated the patient and personally participated in the martin components. I agree with the resident's findings and plan with the following revisions and/or additions: Delayed entry - I personally saw/examined the patient on 10/29/2022. Signature: Cheko Mcclelland MD Date: 11/14/2022 Time: 3:57 PM OBSTETRICS OB ED PROGRESS NOTE SERVICE DATE: October 29, 2022 SERVICE TIME: 3:12 AM Subjective Patient's stated reason for arrival: dizzy, pain in stomachand back, vomiting, fever CHIEF COMPLAINT: nausea/vomiting, abdominal pain HISTORY OF THE PRESENT ILLNESS: The patient is a 22 year old female, , who is at 17w4d with an KIMO of 04/04/2023, by Ultrasound dating method. Patient is here complaining of intractable nausea/vomiting. She was sent her from [facility] Main ED. In the ED, patient was found to be clinically dehydrated and had a K+ of 3.2. UA revealed ketones and 6-10 RBC. She received 1L of IVF, 4mg IV Zofran, tylenol, and K+ replacement. She was then sent over to OB triage for further work-up. On exam, patient states she has had increasing N/V for the past two days. She has had intractable n/v for the past 24 hours, with 10+ episodes of emesis. She has been able to tolerate PO fluid intake, but has not been able to keep any food down since 10/26/21. She does admit to some lower abdominal and suprapubic discomfort, dysuria, and loose stools. She denies vaginal bleeding. Denies leaking of fluid. Denies any alcohol, nicotine, THC, or other recreational drug use. During this , she has avoided nausea triggers by only eating fruit. She has tried sergio candies with no relief. Has not tried any other antinausea methods. PAST MEDICAL HISTORY Diagnosis Date Cognitive disorder IEP per the [facility] Psychologist [facility] Kidney stone Migraine Urinary reflux UTI (urinary tract infection) PAST SURGICAL HISTORY Procedure Laterality Date ORAL SURGERY PROCEDURE FAMILY HISTORY Problem Relation Age of Onset Thyroid Mother Diabetes Mother other (endometriosis) Mother other (other) Father Diabetes Maternal Grandmother Breast Cancer Maternal Grandmother Thyroid Maternal Grandmother Diabetes Maternal Grandfather Cancer Paternal Grandfather other (Myocardial infarction [Other]) Paternal Grandfather age 57 Heart Other maternal and paternal side OB History T0 L0 SAB0 IAB0 Ectopic0 Multiple0 Live Births0 REVIEW OF SYSTEMS: See HPI. The remainder of the review of systems is negative. Objective LAST VITALS: Pulse: 95 BP: 110/66 Resp: 16 Temp: 36.3 ?C (97.3 ?F) SpO2: 98 % Height: 154.9 cm (5' 1) Weight: 81.2 kg (179 lb) BMI: 33.82 PHYSICAL EXAM: General: WD, WN, NAD, comfortable Heart: RR, S1, S2, no rogerio, rub, or murmur appreciated Lungs: clear to auscultation Abdomen: soft, no masses, TTP lower abdomen and suprapubic region. LABS Diagnostic tests reviewed for today's visit: Most recent labs and imaging results. Assessment/Plan 22 year old EGA:17w4d presenting with nausea/vomiting. Active Hospital Problems Diagnosis Date Noted Nausea/vomiting in 10/29/2022 - patient with hx of hyperemesis gravidarum - given 15 day supply of 8mg Zofran by her OB - N/V intractable for 2-3 days despite medical therapy - in Main ED, given 1L bolus, 4mg IV Zofran, and tylenol - hemodynamically stable - Will give 1L D5LR bolus - Monitor symptoms -- can add on Reglan or Unisom prn Hypokalemia due to excessive gastrointestinal loss of potassium 10/29/2022 - K+ 3.2 in ED - Given replacement K+ 40 mEq in ED - can f/u and recheck as outpatient Dysuria during in first trimester 10/29/2022 - Pain with urination; suprapubic discomfort - repeat clean catch urine dip; send for culture - consider treatment of possible UTI pending results of UA Plan of care discussed with: Provider, RN, Patient. SIGNATURE: Tad Shaw DO PATIENT NAME: Luz Oliveira DATE: October 29, 2022 TIME: 3:25 [facility]01-19-2023 NoteCOVID 19 RESULT: SARS-CoV-2 (Agent of COVID-19) Not Detected by RT-PCR or equivalent method. This test has been authorized by FDA under an Emergency Use Authorization (EUA). INFLUENZA A PCR: Negative for Influenza A by RT-PCR INFLUENZA B PCR: Negative for Influenza B by RT-PCR RSV PCR: Negative for Respiratory Syncytial Virus (RSV) by [facility] CenterComment on above:Performed By: #### [id number] ####[facility] LABORATORYCLIA [id number] [place] [address] [place] [id number] Miscellaneous Notes* Quick Notes - Gretel Quintana MD - 10/14/2022 11:30 AM EST Denies any vaginal bleeding, leaking of fluid, cramping or contractions; possibly feeling some flutters. Declines AFP (had nl NT, opted not to do ordered serum screen/NIPT), Anatomy ultrasound ordered. Discussed with patient recommendation for flu vaccine (inactivated/injection) and ways to obtain (as well as family members getting vaccinated)- she accepts. Continues to decline COVID vax, reassuredas to safety in / (encouraged vaccine). Gretel Quintana MD documented in this encounterNorwalk [facility] Hospital01-04-2023 Nurse Note* Aimee Desir Ma - 10/14/2022 11:01 AM EST Movement? Flutters Vaginal Bleeding: NO Vaginal fluid leakage of fluid: NO Contractions: no contractions documented in this encounterNorwalk Memorial Hospital12-08-2022 NoteHNO ID: [id number] Author: Braulio Hollingsworth MD Service: ? Author Type: Physician Type: Progress Notes Filed: 09/17/2022 2:28 PM Note Text: Please refer to quick note and flow sheet. [facility]22 NoteHNO ID: [id number] Author: Braulio Hollingsworth MD Service: ? Author Type: Physician Type: Progress Notes Filed: 08/19/2022 2:29 PM Note Text: INITIAL OB ASSESSMENT OB Provider: Braulio Hollingsworth MD HPI: Luz Oliveira is a 21 year old female here to establish Obstetrical Care. Patient's last menstrual period was 06/21/2022 (exact date). from OB Dating Form. Cycle length: 30 days Complaints: vaginal bleeding and nausea and vomiting was planned. OB History T0 L0 SAB0 IAB0 Ectopic0 Multiple0 Live Births0 Prior : never History of 4th degree laceration: No Patient's Risk Screening for delivery: History of abnormal pap: Yes Prior treatment for cervical dysplasia: none. History of STDs: None Tobacco use: No Caffeine use: No Drug use: No Alcohol use: No Multivitamin with Folic acid: Yes Occupation: [employer] student Muslim or heritage: Yes Would refuse blood transfusion if medically necessary: no BMI 35.62 kg/(m2) Patient BMI over 30? 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 loratadine (CLARITIN) 10 mg tablet Take 1 tablet by mouth once daily. fluticasone (FLONASE) 50 mcg/actuation nasal spray Use 1 [place] in each nostril once daily. No current facility-administered medications on file prior to visit. Review of Systems: GENERAL: Negative for: Fever or Chills HEENT: Negative for: Headache, Impaired Vision, Ringing in Ears, Nosebleeds NECK: Negative for: Swelling, Pain, Stiffness RESPIRATORY: Negative for: Cough, Shortness of breath, Wheezing GASTROINTESTINAL: Negative for: Heartburn, Constipation, Diarrhea, Blood in stool, Vomiting MUSCULOSKELETAL: Negative for: Muscle or joint pain, stiffness, Joint swelling NEUROLOGIC/PSYCHIATRIC: Negative for: Weakness, Paralysis, Numbness, Tingling, Tremor, Anxiety, Depression, Memory loss SKIN: Negative for: Rash, Itching GENITOURINARY: Negative for: vaginal itching, vaginal discharge, hematuria or dysuria PHYSICAL EXAM: BP 102/82 Wt 188 lb 8 oz (85.5kg) LMP 06/21/2022 GENERAL: pleasant female in no apparent distress DERMATOLOGY: Normal, without lesions, non-icteric, and non-hirsute NECK: Supple, full range of motion, no adenopathy, and thyroid normal CHEST: Normal inspiratory effort ABDOMEN: soft, non-tender, and no masses NEURO: alert and oriented x3,exam grossly non-focal PELVIS: External genitalia normal without lesions. Perineal body intact. No vaginal or cervical lesions. Cervix closed. Uterus 7 week size. Limited OB ultrasound exam: single intrauterine , positive cardiac activity, and crown-rump length c/w 7w3d ASSESSMENT: 21 year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 regulations: The Federal rules restrict any use of the information to criminally investigate or prosecute any alcohol or drug abuse patient.[facility] the event this information is protected by the Federal Confidentiality of Alcohol and Drug Abuse Patient Records regulations: The Federal rules restrict any use of the information to criminally investigate or prosecute any alcohol or drug abuse patient.[facility] the event this information is protected by the Federal Confidentiality of Alcohol and Drug Abuse Patient Records regulations: The Federal rules restrict any use of the information to criminally investigate or prosecute any alcohol or drug abuse patient.[facility] Reason for Visit (unrecogniz ed section and content) Reason Comments Missed Appointment #1 No Show, #1 Lette r Reason Comments Bleeding During Reason Comments Care 7W 3D Reason Onset Date Comments Care Immunizations 10/14/2022 Flu vaccination Reason Comments Patient Update Reason Comments Med Change Request Scheduled Active and Recently Administ ered Medications (unrecognized section and content) Medication Order 08/02/2022 08/03/2022 08/04/2022 acetaminophen (TYLENOL) tablet 650 mg 650 mg, Oral, ONCE, 1 dose, On Wed08/04/22 at 1103, Maximum dose of acetaminophen is 4000 mg from all sources in 24 hours. 1135 (Not Given - Pr ovider: Raina Magana RN - Reason: Patient/family refused - Comment: no c/o pain) Goals (unrecognized section and content) Goals may be documented in a n alternate sectionGoals may be documented in an alternate section No data available for this section No data available for this section No data available for this section No data available for this section No data available for this section No data available for this section No data available for this section No data available for this section No data available for this section No data available for this section No data available for this section No data available for this section No data available for this section No data available for this section No data available for this section Care Team (unrecognized sect ion and content) Care Team Personnel Name: MAXWELL GOMEZ MD Member Role: Primary Care Physician Address: Address: [address] [place] [phone] Care Team Related Persons Name: RASHMI MTZ Address: Home [address] [place] [phone] [place] Name: MARGARITO MTZ Address: Home [address] [place] [phone] [place] Name: MARGARITO MTZ Address: Home [address] [place] [phone] [place] Name: MARGARITO MTZ Address: Home [address] [place] [phone] [place] Name: MARGARITO MTZ Address: Home [address] [place] [phone] [place] Name: MARGARITO MTZ Address: Home [address] [place] [phone] [place] Name: MARGARITO MTZ Address: Home [address] [place] [phone] [place] Name: MARGARITO MTZ Address: Home [address] [place] [phone] [place] Name: MARGARITO MTZ Address: Home [address] [place] [phone] [place] Care Team Personnel Name: MAXWELL GOMEZ MD Member Role: Primary Care Physician Address: Address: [address] [place], [place] [phone] Care Team Related Persons Name: RASHMI MTZ Address: Home [address] [place] [phone] [place] Name: MARGARITO MTZ Address: Home [address] [place] [phone] [place] Name: MARGARITO MTZ Address: Home [address] [place], [place] [phone] [place] Name: MARGARITO MTZ Address: Home [address] [place] [phone] [place] Name: MARGARITO MTZ Address: Home [address] [place] [phone] [place] Name: MARGARITO MTZ Address: Home [address] [place] [phone] [place] Name: MARGARITO MTZ Address: Home [address] [place] [phone] [place] Name: MARGARITO MTZ Address: Home [address] [place] [phone] [place] Name: MARGARITO MTZ Address: Home [address] [place] [phone] Patient Care team informatio n (unrecognized section and content) Care Team Personnel Name: MAXWELL GOMEZ MD Member Role: Primary Care Physician Address: Address: [address] [place], [place] [phone] [place] Care Team Related Persons Name: RASHMI MTZ Address: Home [address] [phone] [place] Name: MARGARITO MTZ Address: Home [address] [place] [phone] [place] Name: MARGARITO MTZ Address: Home [address] [place] [phone] [place] Name: MARGARITO MTZ Address: Home [address] [place] [phone] [place] Name: ELVIA MTZRI Address: Home [address] [place] [phone] [place] Name: MARGARITO MTZ Address: Home [address] [place], [place] [phone] [place] Name: MARGARITO MTZ Address: Home [address] [place] [phone] [place] Name: MARGARITO MTZ Address: Home [address] [place], [place] [phone] [place] Name: MARGARITO MTZ Address: Home [address] [place], [place] [phone] [place] Care Team Personnel Name: MAXWELL GOMEZ MD Member Role: Primary Care Physician Address: Address: [address] [place] [phone] [place] Care Team Related Persons Name: RASHMI MTZ Address: Home [address] [phone] [place] Name: MARGARITO MTZ Address: Home [address] [place], [place] [phone] [place] Name: MARGARITO MTZ Address: Home [address] [place], [place] [phone] [place] Name: MARGARITO MTZ Address: Home [address] [place], [place] [phone] [place] Name: MARGARITO MTZ Address: Home [address] [place], [place] [phone] [place] Name: MARGARITO MTZ Address: Home [address] [place], [place] [phone] [place] Name: MARGARITO MTZ Address: Home [address] [place], [place] [phone] [place] Name: MARGARITO MTZ Address: [address] [place] [phone] [place] Name: MARGARITO MTZ Address: Home [address] [place], [place] [phone] [place] Care Team Personnel Name: SUNIL GRAHAM MD Position: P4 LATEX SPOOLER Provider Member Role: Primary Care Physician Address: Address: [address] [place], [place] [address] [facility] [place], [place] [address] Care Team Related Persons Name: RASHMI MTZ Address: Home [address] [phone] [place] Name: MARGARITO MTZ Address: Home [address] [place], [place] [phone] [place] Name: MARGARITO MTZ Address: Home [address] [place] [phone] [place] Name: MARGARITO MTZ Address: Home [address] [place], [place] [phone] [place] Name: ELVIA MTZRI Address: [address] [place], [place] [phone] [place] Name: ELVIA MTZRI Address: Home [address] [place], [place] [phone] [place] Name: ELVIA MTZRI Address: [address] [place], [place] [phone] [place] Name: ELVIA MTZRI Address: [address] [place], [place] [phone] [place] Name: ELVIA MTZRI Address: [address] [place], [place] [phone] [place] Care Team Personnel Name: SUNIL GRAHAM MD Position: P4 LATEX SPOOLER Provider Member Role: Primary Care Physician Address: Address: [address] [place] [phone] Care Team Related Persons Name: RASHMI MTZ Address: Home [address] [phone] [place] Name: MARGARITO MTZ Address: Home [address] [place], [place] [phone] [place] Name: ELVIA MTZRI Address: [address] [place], [place] [phone] [place] Name: MARGARITO MTZ Address: Home [address] [place], [place] [phone] [place] Name: ELVIA MTZRI Address: Home [address] [place], [place] [phone] [place] Name: MARGARITO MTZ Address: Home [address] [place], [place] [phone] [place] Name: MARGARITO MTZ Address: Home [address] [place], [place] [phone] [place] Name: MARGARITO MTZ Address: [address] [place], [place] [phone] [place] Name: MARGARITO MTZ Address: [address] [place], [place] [phone] [place] Care Team Personnel Name: MARTINEZ NÚÑEZ MD Position: P4 LATEX SPOOLER Provider Member Role: Primary Care Physician Address: Address: [address] [place] [id number] Care Team Related Persons Name: RASHMI MTZ Address: Home [address] [phone] [place] Name: MARGARITO MTZ Address: Home [address] [place], [place] [phone] [place] Name: MARGARITO MTZ Address: Home [address] [place], [place] [phone] [place] Name: MARGARITO MTZ Address: Home [address] [place], [place] [phone] [place] Name: MARGARITO MTZ Address: Home [address] [place], [place] [phone] [place] Name: MARGARITO MTZ Address: Home [address] [place], [place] [phone] [place] Name: MARGARITO MTZ Address: [address] [place], [place] [phone] [place] Name: MARGARITO MTZ Address: Home [address] [place] [phone] [place] Name: MARGARITO MTZ Address: Home [address] [place], [place] [phone] Care Team Personnel Name: MARTINEZ NÚÑEZ MD Position: P4 LATEX SPOOLER Provider Member Role: Primary Care Physician Address: Address: [address] [place] [id number] Care Team Related Persons Name: RASHMI MTZ Address: Home [address] [phone] [place] Name: MARGARITO MTZ Address: Home [address] [place] [phone] [place] Name: MARGARITO MTZ Address: Home [address] [place], [place] [phone] [place] Name: MARGARITO MTZ Address: Home [address] [place], [place] [phone] [place] Name: MARGARITO MTZ Address: Home [address] [place], [place] [phone] [place] Name: MARGARITO MTZ Address: Home [address] [place], [place] [phone] [place] Name: MARGARITO MTZ Address: Home [address] [place], [place] [phone] [place] Name: MARGARITO MTZ Address: [address] [place], [place] [phone] [place] Name: MARGARITO MTZ Address: [address] [place], [place] [phone] [place] Care Team Personnel Name: MARTINEZ NÚÑEZ MD Position: P4 LATEX SPOOLER Provider Member Role: Primary Care Physician Address: Address: [address] [place] [id number] Care Team Related Persons Name: RASHMI MTZ Address: Home [address] [phone] [place] Name: MARGARITO MTZ Address: Home [address] [place], [place] [phone] [place] Name: MARGARITO MTZ Address: Home [address] [place], [place] [phone] [place] Name: MARGARITO MTZ Address: Home [address] [place], [place] [phone] [place] Name: MARGARITO MTZ Address: Home [address] [place], [place] [phone] [place] Name: MARGARITO MTZ Address: [address] [place], [place] [phone] [place] Name: MARGARITO MTZ Address: [address] [place], [place] [phone] [place] Name: MARGARITO MTZ Address: [address] [place], [place] [phone] [place] Name: MARGARITO MTZ Address: [address] [place], [place] [phone] [place] Care Team Personnel Name: MARTINEZ NÚÑEZ MD Position: P4 LATEX SPOOLER Provider Member Role: Primary Care Physician Address: Address: [address] [place] [address]- Care Team Related Persons Name: RASHMI MTZ Address: Home [address] [phone] [place] Name: MARGARITO MTZ Address: Home [address] [place], [place] [phone] [place] Name: MARGARITO MTZ Address: Home [address] [place], [place] [phone] [place] Name: MARGARITO MTZ Address: Home [address] [place], [place] [phone] [place] Name: MARGARITO MTZ Address: Home [address] [place], [place] [phone] [place] Name: MARGARITO MTZ Address: Home [address] [place], [place] [phone] [place] Name: MARGARITO MTZ Address: [address] [place], [place] [phone] [place] Name: MARGARITO MTZ Address: [address] [place], [place] [phone] [place] Name: MARGARITO MTZ Address: [address] [place], [place] [phone] [place] Care Team Personnel Name: MARTINEZ NÚÑEZ MD Position: P4 LATEX SPOOLER Provider Member Role: Primary Care Physician Address: Address: [address] [place] [phone] [place] [address] Care Team Related Persons Name: RASHMI MTZ Address: Home [address] [phone] [place] Name: MARGARITO MTZ Address: [address] [place], [place] [phone] [place] Name: MARGARITO MTZ Address: [address] [place], [place] [phone] [place] Name: MARGARITO MTZ Address: [address] [place], [place] [phone] [place] Name: MARGARITO MTZ Address: [address] [place], [place] [phone] [place] Name: MARGARITO MTZ Address: [address] [place], [place] [phone] [place] Name: MARGARITO MTZ Address: [address] [place], [place] [phone] [place] Name: MARGARITO MTZ Address: [address] [place], [place] [phone] [place] Name: MARGARITO MTZ Address: [address] [place], [place] [phone] [place] Care Team Personnel Name: MARTINEZ NÚÑEZ MD Position: P4 LATEX SPOOLER Provider Member Role: Primary Care Physician Address: Address: [address] [place] [phone]- Care Team Related Persons Name: AMANDA OLIVEIRA Address: Home [address] [place] [phone] [place] Address: Temporary [address] [place], [place] [phone] Name: RASHMI MTZ Address: Home [address] [phone] [place] Name: MARGARITO MTZ Address: Home [address] [place], [place] [phone] [place] Name: MARGARITO MTZ Address: [address] [place] [phone] [place] Name: MARGARITO MTZ Address: [address] [place], [place] [phone] [place] Name: MARGARITO MTZ Address: [address] [place], [place] [phone] [place] Name: MARGARITO MTZ Address: [address] [place], [place] [phone] [place] Name: MARGARITO MTZ Address: [address] [place], [place] [phone] [place] Name: MARGARITO MTZ Address: [address] [place], [place] [phone] [place] Name: MARGARITO MTZ Address: [address] [place], [place] [phone] [place] Care Team Personnel Name: MARTINEZ NÚÑEZ MD Position: P4 LATEX SPOOLER Provider Member Role: Primary Care Physician Address: Address: [address] [place] [address] [place], [place] [address] Care Team Related Persons Name: LUI SDANIEL OLIVEIRA Address: Home [address] [place], [place] [phone] Address: Temporary [address] [place], [place] [phone] Care Team Personnel Name: KIRSTEN CISNEROSDBA DEVELOPER Position: P4 Advanced Holistic Pulser Member Role: Primary Care Physician Address: Address: [address] [place] [id number] Care Team Related Persons Name: LUIS DANIEL OLIVEIRA Address: Home [address] [place], [place] [phone] Address: Temporary [address] [place], [place] [phone] Care Team Personnel Name: KIRSTEN CISNEROS APRN-DBA DEVELOPER Position: P4 Advanced Holistic Pulser Member Role: Primary Care Physician Address: Address: [address] [place] [address]- Care Team Related Persons Name: LUIS DANIEL OLIVEIRA Address: Home [address] [place], [place] [phone] Address: Temporary [address] [place], [place] [phone] FOR RECORDS PERTAINING TO PATIENTS WHO ARE OR HAVE BEEN ENROLLED IN A CHEMICAL DEPENDENCY/SUBSTANCEABUSE PROGRAM, SOME INFORMATION MAY BE OMITTED. This clinical summary was aggregated from multiple sources. Caution should be exercised in using it in the provision of clinical care. This summary normalizes information from multiple sources, and as a consequence, information in this document may materially change the coding, format and clinical context of patient data. In addition, data may be omitted in some cases. CLINICAL DECISIONS SHOULD BE BASED ON THE PRIMARY CLINICAL RECORDS. [facility] [employer] provides no warranty or guarantee of the accuracy or completeness of information in this document.
--- OUTSIDE RECORDS SUMMARY | 2025-07-29 21:07 | XMS RPT_ITS | CCD ---
Author Organization [facility] Care Team Providers Care Sandwich Board Carrier Name Role Phone Lynsey [phone], Alex [phone] C onsulting Unavailable KWON DO, KAY K [...] MAXWELL GOMEZ MD Primary Care Physician [phone] CHEKO MCCLELLAND Admitting Unavailable CHEKO MCCLELLAND Attending Unavailable TANESHA HILTON Attending Unavailable TANESHA HILTON Admitting Unavailable JAYDE YEAGER Attending Unavailable HIWOT HUDSON Attending UnavailSUNIL Saeed MD Primary Care Physician MARTINEZ NÚÑEZ MD Primary Care Physician MAST INCLUSION TEACHER-GUM PULLER, KIRSTEN Primary Care Physician WILTON AN, MARTINEZ Bautista Primary Care Unavailable LIVIER AN, SUNIL Admitting Unavailable JAYLA AN, LONG Attending Unavailable WILTON AN, MARTINEZ Bautista Attending Unavailable WILTON AN, MARTINEZ Bautista Primary Care Unavailable WILTON AN, MARTINEZ Bautista Attending Unavailable WILTON AN, MARTINEZ Bautista Primary Care Unavailable WILTON AN, MARTINEZ Bautista Attending Unavailable WILTON AN, MARTINEZ Bautista Primary Care Unavailable [facility] Attending Unavailhieu NÚÑEZ MD, MARTINEZ Bautista Primary Care Unavailable MAST INCLUSION TEACHER-GUM PULLER, KIRSTEN Attending Unavailabl e MAST INCLUSION TEACHER-GUM PULLER, KIRSTEN Primary Care Unavailabl e LIVIER AN, SUNIL Attending Unavailable WILTON AN, MARTINEZ Bautista Primary Care Unavailable JAYLA AN, LONG Attending Unavailable WILTON AN, MARTINEZ Bautista Primary Care Unavailable JAYLA AN, LONG Attending Unavailable WILTON AN, MARTINEZ Bautista Primary Care Unavailable MAST INCLUSION TEACHER-GUM PULLER, KIRSTEN Attending Unavailabl e MAST INCLUSION TEACHER-GUM PULLER, KIRSTEN Primary Care Unavailabl e RAMA AVALOS [...] Physician, No Primary Primary Care Unava ilable Sachse HEAVY CLEANER, Remedios Attending Unavailable Care Physician, No Primary Referring Unava ilable Care Physician, No Primary Primary Care Unava ilable Sanchez, Geraldine Referring Unavailable Sanchez, Geraldine Attending Unavailable Vande Velde, Rama Referring Unavailabl e Vande Velde, Rama Attending Unavailabl e Care Physician, No Primary Primary Care Unava ilable Antonio, Jasper Consulting Unavailable Care Physician, No Primary Primary Care Unava ilable Sachse HEAVY CLEANER, Remedios Attending Unavailable GardnerMendez Attending Unavailable Care Physician, No Primary Primary Care Unava ilable Sachse HEAVY CLEANER, Remedios Attending Unavailable Care Physician, No Primary Primary Care Unava ilable Jose HEAVY CLEANER, Remedios Referring Unavailable Care Physician, No Primary Primary Care Unava ilable Marcanthony, Geraldine Referring Unavailable Marcanthony, Geraldine Attending Unavailable Care Physician, No Primary Primary Care Unava ilable Damari Mcdonough Referring Unavailable Damari Mcdonough Attending Unavailable Jose HEAVY CLEANER, Remedios Attending Unavailable Care Physician, No Primary Primary Care Unava ilable Sachse HEAVY CLEANER, Remedios Referring Unavailable Jose HEAVY CLEANER, Remedios Attending Unavailable Care Physician, No Primary Primary Care Unava ilable Jose HEAVY CLEANER, Remedios Referring Unavailable Care Physician, No Primary Primary Care Unava ilable Care Physician, No Primary Referring Unava ilable Geraldine Bradford Attending Unavailable Allergies Allergy Classification Reported Allergen(s) Allergy Type Date of Onset Reaction(s) Facility (1 source) Escitalopram Drug Allergy [facility] Repository (11 sources) Citalopram; Translations: [CITALOPRAM HYDROBROMIDE] Drug Allergy 4 Other: See Comments [facility] Work Phone: (11 sources) Escitalopram; Translations: [ESCITALOPRAM] Drug Allergy 1 Other: See Comments [facility] Work Phone: (15 sources) Citalopram; Translations: [citalopram] Drug Allergy Suicidal ideation [facility] (1 source) Citalopram Drug Allergy 5 [facility] Repository (1 source) Escitalopram Drug Allergy [facility] Repository Medications Current Medications Medication Drug Class(es) Dates Sig (Normalized) Sig (Original) acetaminophen 500 mg oral tablet (1 source) Start: 03-31-2023 End: 04-28-2023 Tylenol Extra Strength 500 mg oral tablet Dose : 500 mg = 1 tab(s), Oral, q4h, X 14 day(s), # 30 tab(s), 1 Refill(s), 04/28/23 11:38:00 EDT, Pharmacy: [facility]/pharmacy #[id number], 155, cm, 03/30/23 7:49:00 EDT, Height Start Date: 03/31/23 Stop Date: 04/28/23 Status: Ordered benzocaine 200 mg/ml topical spray (1 source) Standardized Chemical Allergen Start: 03-31-2023 End: 04-14-2023 apply 1 dose topically four times daily Americaine 20% topical spray Dose = 1 herlinda, Topical, QID, X 14 day(s), # 1 EA, 0 Refill(s), Pharmacy: [facility]/pharmacy #[id number], 155, cm, 03/30/23 7:49:00 EDT, Height [...] 0 Refill(s), 02/25/24 8:31:00 AM EDT, Pharmacy: [facility] #[id number], 155, cm, 02/18/24 [...] BID, # 28 tab(s), 0 Refill(s), Pharmacy: [facility] #330, 155, cm, 02/18/24 7:59:00 EDT, Height, [...] tab(s), 0 Refill(s), 04/14/23 11:38:00 EDT, Pharmacy: [facility]/pharmacy #[id number], 155, cm, 03/30/23 7:49:00 EDT, Height Start Date: 03/31/23 Stop Date: 04/14/23 Status: Ordered magnesium oxide 400 mg oral tablet (3 sources) Start: 01-11-2023 End: 02-10-2023 magnesium oxide 400 mg oral tablet Dose : 400 mg = 1 tab(s), Oral, qHS, X 30 day(s), # 30 tab(s), 0 Refill(s), 02/10/23 15:17:00 EDT, Pharmacy: [facility]/pharmacy #[id number], 155, , 01/11/23 15:08:00 EDT, Height [...] tylenol, # 12 tab(s), 0 Refill(s), Pharmacy: [facility]/pharmacy #[id number], 155, cm, 01/11/23 15:08:00 EDT, Height [...] on above: Take 1 capsule by mo [facility] daily with breakfast. AD oral tablet (10 sources) Start: 01-26-2023 take 1 tablet by mouth once daily AD oral tablet Dose = 1 tab(s), Oral, Daily, # 30 tab(s), 0 Refill(s) Start Date: 01/26/23 Status: Ordered Ksqnikqr-Esi-Fu-Fa () 1 mg Tablet (2 sources) Start: 08-09-2022 take 1 tablet by mouth once daily Izusanxx-Dww-Lh-Fa () 1 mg Tablet Active 1 TABLET PO DAILY August 08, 2022 11:00pm Start: 08-09-2022 take 1 tablet by [facility] once daily Axmjmbkl-Zmg-Ep-Fa () 1 mg Tablet Active 1 TABLET [...] qDay, # 30 tab(s), 11 Refill(s), [id number], Depression, major, recurrent, moderate, 154, cm, 07/20/23 7:49:00 EDT, Height, kg, 07/20/23 7:49:00 EDT, Dosing Weight Start Date: 08/16/23 Stop Date: 08/10/24 Status: Ordered Vitamin B2 100 mg oral tablet (8 sources) Start: 02-04-2023 take 1 tablet by mouth once daily Vitamin B2 100 mg oral tablet 1 tab(s), Oral, qDay, # 30 tab(s), 2 Refill(s), Pharmacy: [facility] STORE [id number], 155, cm, 02/01/23 13:50:00 EDT, Height, kg, 01/26/23 0:59:00 EDT, Dosing Weight Start Date: 02/04/23 Status: Ordered Start: 01-11-2023 Vitamin B2 100 mg oral tablet Dose : 100 mg = 1 tab(s), Oral, Daily, # 30 tab(s), 2 Refill(s), Pharmacy: [facility]/pharmacy #[id number], 155, cm, 01/11/23 15:08:00 EDT, Height [...] (FLONASE) 50 mcg/actuation nasal spray Use 1 [place] in each nostril once daily. 1 Bottle 2 07/10/2014 08/19/2022 Discontinued Comment on above: Use 1 [place] in each nostril once daily. loratadine 10 [...] (3 sources) Congenital vesicoureterorenal reflux; Translations: [Congenital zpfpnn-ywzmtft-kqnth reflux] Onset: 5 Chronic Headache; including migraine [...] Absolute Lymph 1.09 X10 3/uL Normal 0.83-4.51 [facility] Comment on above: Performed By: #### L 100.0100, L500.4050 #### [facility] [address] [place], [place], [id number] Absolute Neut 6.9 X10 3/uL Normal 2.0-7.7 [facility] Comment on above: Performed By: #### L 100.0100, L500.4050 #### [facility] [address] [place], [address] Basophils/100 WBC (Bld) 0.1 % Normal 0-1 [facility] Comment on above: Performed By: #### L 100.0100, L500.4050 #### [facility] [address] [place], [address] Eosinophils/100 WBC (Bld) 0.2 % Normal 0-5 [facility] Comment on above: Performed By: #### L 100.0100, L500.4050 #### [facility] [address] [place], [address] Erythrocyte distribution width (RBC) [Ratio] 14.1 % Normal 11.6-14.6 [facility] Comment on above: Performed By: #### L 100.0100, L500.4050 #### [facility] [address] [place], [address] Hematocrit (Bld) [Volume fraction] 31.9 % Low 37-47 [facility] Comment on above: Performed By: #### L 100.0100, L500.4050 #### [facility] [address] [place], [address] Hemoglobin (Bld) [Mass/Vol] 11.6 g/dL Low 12.0-15.0 [facility] Comment on above: Performed By: #### L 100.0100, L500.4050 #### [facility] [address] [place], [address] IG% 0.600 Normal 0.0-0.9 [facility] Comment on above: Result Comment: IG% - Immature Granulocytes (promyelocytes, myelocytes and metamyelocytes) > 1% indicates that a LEFT SHIFT is Present. Performed By: #### L 100.0100, L500.4050 #### [facility] [address] [place], [address] Lymphocytes/100 WBC (Bld) 12.8 % Low 19-41 [facility] Comment on above: Performed By: #### L 100.0100, L500.4050 #### [facility] [address] [place], [address] MCH (RBC) [Entitic mass] 32.6 pg High 27.0-32.0 [facility] Comment on above: Performed By: #### L 100.0100, L500.4050 #### [facility] [address] [place], [address] MCHC (RBC) [Mass/Vol] 36.4 g/dL High 32-36 [facility] Comment on above: Performed By: #### L 100.0100, L500.4050 #### [facility] [address] [place], [address] MCV (RBC) [Entitic vol] 89.6 fL Normal 81-99 [facility] Comment on above: Performed By: #### L 100.0100, L500.4050 #### [facility] [address] [place], [address] Monocytes/100 WBC (Bld) 4.7 % Normal 0-10 [facility] Comment on above: Performed By: #### L 100.0100, L500.4050 #### [facility] [address] [place], [address] Neutrophils/100 WBC (Bld) 81.6 % High 47-70 [facility] Comment on above: Performed By: #### L 100.0100, L500.4050 #### [facility] [address] [place], [address] Nucleated RBC (Bld) [#/Vol] 0 10*3/uL Normal 0-5 [facility] Comment on above: Performed By: #### L 100.0100, L500.4050 #### [facility] [address] [place], [address] Platelet mean volume (Bld) [Entitic vol] 10.1 fL Normal 6.2-12.0 [facility] Comment on above: Performed By: #### L 100.0100, L500.4050 #### [facility] [address] [place], [address] Platelets (Bld) [#/Vol] 180 10*3/uL Normal 150-450 [facility] Comment on above: Performed By: #### L 100.0100, L500.4050 #### [facility] [address] [place], [address] RBC (Bld) [#/Vol] 3.56 10*6/uL Low 4.2-5.4 [facility] Comment on above: Performed By: #### L 100.0100, L500.4050 #### [facility] [address] [place], [address] RDW SD 45.9 fl High 35.1-43.9 [facility] Comment on above: Performed By: #### L 100.0100, L500.4050 #### [facility] [address] [place], [address] WBC (Bld) [#/Vol] 8.5 10*3/uL Normal 4.4-11.0 [facility] Comment on above: Performed By: #### L 100.0100, L500.4050 #### [facility] [address] [place], [address] Comprehensive Metabolic Prof [facility] 07-09-2025 Albumin [Mass/Vol] 3.9 g/dL Normal 3.5-5.0 [facility] Comment on above: Performed By: #### L 100.0100, L500.4050 #### [facility] [address] [place], [address] Albumin/Globulin [Mass ratio] 1.4 {ratio} Normal 0.9-2.4 [facility] Comment on above: Performed By: #### L 100.0100, L500.4050 #### [facility] [address] [place], [address] ALK PHOS 65 U/L Normal 35-104 [facility] Comment on above: Performed By: #### L 100.0100, L500.4050 #### [facility] [address] [place], [address] ALT [Catalytic activity/Vol] 20 U/L Normal <=34 [facility] Comment on above: Performed By: #### L 100.0100, L500.4050 #### [facility] [address] [place], [address] AST [Catalytic activity/Vol] 23 U/L Normal <=31 [facility] Comment on above: Performed By: #### L 100.0100, L500.4050 #### [facility] [address] [place], [address] Bilirubin [Mass/Vol] 0.35 mg/dL Normal 0.00-1.30 [facility] Comment on above: Performed By: #### L 100.0100, L500.4050 #### [facility] [address] [place], [address] BUN/CRE 10.5 RATIO Normal 10-20 [facility] Comment on above: Performed By: #### L 100.0100, L500.4050 #### [facility] [address] [place], [address] Calcium [Mass/Vol] 9.1 mg/dL Normal 7.6-11.0 [facility] Comment on above: Performed By: #### L 100.0100, L500.4050 #### [facility] [address] [place], [address] Chloride [Moles/Vol] 105 mmol/L Normal 98-108 [facility] Comment on above: Performed By: #### L 100.0100, L500.4050 #### [facility] [address] [place], [address] CO2 [Moles/Vol] 18.7 mmol/L Low 21.0-32.0 [facility] Comment on above: Performed By: #### L 100.0100, L500.4050 #### [facility] [address] [place], [address] Creatinine [Mass/Vol] 0.60 mg/dL Low 0.70-1.20 [facility] Comment on above: Performed By: #### L 100.0100, L500.4050 #### [facility] [address] [place], [address] GAP 14 Normal 5-15 [facility] Comment on above: Performed By: #### L 100.0100, L500.4050 #### [facility] [address] [place], [address] GFR/1.73 sq M.predicted among non-blacks MDRD (S/P/Bld) [Vol rate/Area] 128 mL/min/{1.73_m2} Normal >60 [facility] Comment on above: Result Comment: mL/m in/1.73m2 CKD-EPI Creatinine Equation (2020) Performed By: #### L 100.0100, L500.4050 #### [facility] [address] [place], [address] Globulin (S) [Mass/Vol] 2.8 g/dL Normal 2.2-4.2 [facility] Comment on above: Performed By: #### L 100.0100, L500.4050 #### [facility] [address] [place], [address] Glucose [Mass/Vol] 91 mg/dL Normal 70-99 [facility] Comment on above: Performed By: #### L 100.0100, L500.4050 #### [facility] [address] [place], [address] Potassium [Moles/Vol] 3.7 mmol/L Normal 3.3-5.1 [facility] Comment on above: Performed By: #### L 100.0100, L500.4050 #### [facility] [address] [place], [address] Sodium [Moles/Vol] 137 mmol/L Normal 133-145 [facility] Comment on above: Performed By: #### L 100.0100, L500.4050 #### [facility] [address] [place], [address] T PROT 6.7 g/dL Normal 5.9-8.4 [facility] Comment on above: Performed By: #### L 100.0100, L500.4050 #### [facility] [address] [place], [address] Urea nitrogen [Mass/Vol] 6 mg/dL Normal 4-19 [facility] Comment on above: Performed By: #### L 100.0100, L500.4050 #### [facility] [address] [place], [address] Lieutenant Shift Supervisor Office Visit Reporton 07-09-2025 Lieutenant Shift Supervisor Office Visit Report [facility]'[address], [address] [place] [address] OFFICE VISIT Date of Service: 07/09/25 MR#: [id number] Acct: [id number] Name: LUZ OLIVEIRA Rep #: 36 [...] Visit Reasons: DISCUSS CONCERNS * OK PER Get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 Is patient in pain?: No Allergies escitalopram (From Lexapro) Adverse Reaction (Severe, Verified 07/09/25 09:30) SUICIDAL citalopram hydrobromide (From Celexa) Adverse Reaction (Verified 07/09/25 09:30) Other Medications ???Medication ???Instructions ???Recorded ???Confirmed ???Type cucqczke-tmp-El-FA 1 mg 1 tab PO DAILY 08/09/22 [...] hypertension Obesity affecting 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 pivjwp-jrnlozf-abxbx reflux Surgical History [place] teeth removed Family History Grandmother Breast cancer Brain cancer Grandfather CVA (cerebral vascular accident) Mother Diabetes Heart failure MRSA carrier History of recurrent miscarriages Father Hypertension Social History adopted: No household members: spouse and children housing: house number of children: 1 current occupation: [employer] current occupational exposures/hazards: No pets and animals: [...] 3-4 times per week duration: 15-30 minutes/day kalpana/baptist: Roman Catholic seatbelt use: always do you feel safe at home: Yes 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: : 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 Date Name GA/Weeks Outcome Route Bth Weight Gen Labor Lgth Anesthesia Del Locatn Provider FOB 10/11/18 Chemical 4 spontaneous 03/30/23 Amanda 39 live - full term vacuum 6lbs 1oz Female epidural [facility] Delivery Date: 03/30/23 Last Updated by: Yasmin [...] Visit Note (more content not included)... Normal [facility] Protein+Creatinine Ratio,Uri neon 07-09-2025 PROT:CRE RATIO 283 mg/g CRE High 0-200 [facility] Comment on above: Performed By: #### L 501.0900 #### [facility] [address] [place], [address] Protein (U) [Mass/Vol] 73.9 mg/dL High 0.0-12.0 [facility] Comment on above: Performed By: #### L 501.0900 #### [facility] [address] [place], [address] UR CREAT 261.00 mg/dL High 28.00-217.00 [facility] Comment on above: Performed By: #### L 501.0900 #### [facility] [address] [place], [address] Wound Cultureon 07-06-2025 WC Lesion of abdomen Possible skin contamination, further Identification and sensitivity will be performed only by physician's request. Coag Negative Staph Amount Growth 2+ Normal [facility] Comment on above: Performed By: #### L 100.0100 #### [facility] [address] [place], [address] Gram Stainon 07-04-2025 GS Lesion of abdomen Gram Stain 1+ White Blood Cells No organisms seen Normal [facility] Comment on above: Performed By: #### L 100.0100 #### [facility] [address] [place], [address] Lieutenant Shift Supervisor Office Visit Reporton 07-03-2025 Lieutenant Shift Supervisor Office Visit Report [facility] [address], [address] [place] [address] OFFICE VISIT Date of Service: 07/03/25 MR#: [id number] Acct: [id number] Name: LUZ OLIVEIRA Rep #: [id number] : 2000 Provider: JARAD moctezuma Age/Sex: 24/F Location: [facility] [place] Status: Signed Intake Vital Signs 05/07/25 14:40 06/06/25 13:39 07/03/25 15:35 Height 5 ft 1 in 5 ft 1 in 5 ft 1 in Weight: 185 lb 4 oz BMI 34.9 BP 109/74 Intake Visit Reasons: 21wk ob Chief Complaint: 21 Week OB [employer]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 Is patient in pain?: No Allergies escitalopram (From Lexapro) Adverse Reaction (Severe, Verified 07/03/25 15:38) SUICIDAL citalopram hydrobromide (From Celexa) Adverse Reaction (Verified 07/03/25 15:38) Other Medications ???Medication ???Instructions ???Recorded ???Confirmed ???Type qguuepaa-qhf-Qe-FA 1 mg 1 tab PO DAILY 08/09/22 [...] hypertension Obesity affecting 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 inejkh-yvcocib-odwwd reflux Surgical History [place] teeth removed Family History Grandmother Breast cancer Brain cancer Grandfather CVA (cerebral vascular accident) Mother Diabetes Heart failure MRSA carrier History of recurrent miscarriages Father Hypertension Social History adopted: No household members: spouse and children housing: house number of children: 1 current occupation: [employer] current occupational exposures/hazards: No pets and animals: [...] 3-4 times per week duration: 15-30 minutes/day kalpana/baptist: Roman Catholic seatbelt use: always do you feel safe at home: Yes 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 Date Name GA/Weeks Outcome Route Bth Weight Infant Gen Labor Lgth Anesthesia Del Locatn Provider FOB 10/11/18 Chemical 4 spontaneous 03/30/23 Amanda 39 live - full term vacuum 6lbs 1oz [facility]: 03/30/23 Last Updated by: Yasmin [...] ??-???- 9w (more content not included)... Normal [facility] Progress Noteon 06-20-2025 Product Management Analyst Authentication Interface Message Text [facility]- MEDICINE CONSULT Referring/Requesting Provider: Rama [...] disorder Chronic kidney disease kidney stones Congenital cokolr-dnorbbw-jnjsx reflux Depression Elevated liver enzymes Headache in [...] repeat LFTs are elevated, refer to local voucher examiner for further evaluation. Frequent UTI 06/20/2025 - [...] hemorrhage, stillbirth, anomalies, delivery and postcesarean complications. [place] of medicine recommend weight gain in : [...] findings. Ame (more content not included)... Normal [facility] Lieutenant Shift Supervisor Office Visit Reporton 06-06-2025 Lieutenant Shift Supervisor Office Visit Report [facility]'s [address], [address] [place] [address] OFFICE VISIT Date of Service: 06/06/25 MR#: [id number] Acct: [id number] Name: LUZ OLIVEIRA Rep #: [id number] : 2000 Provider: Dr. 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 Is patient in pain?: No Allergies escitalopram (From Lexapro) Adverse Reaction (Severe, Verified 06/06/25 13:36) SUICIDAL citalopram hydrobromide (From Celexa) Adverse Reaction (Verified 06/06/25 13:36) Other Medications ???Medication ???Instructions ???Recorded ???Confirmed ???Type gskeqmme-tik-Uh-FA 1 mg 1 tab PO DAILY 08/09/22 06/06/25 H istory tablet metoclopramide HCl 5 mg tablet 5 mg PO QACHS #60 tabs 04/19/25 Rx (Reglan) Last Menstrual Period: 02/02/25 Zika: Zika virus screening: Negative : No PFSH PFSH Medical History Fatty liver Renal atrophy, left Elevated liver enzymes Heart palpitations History of gestational hypertension Obesity affecting 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 zhzvax-pqfiztj-vyqjm reflux Surgical History [place] teeth removed Family History Grandmother Breast cancer Brain cancer Grandfather CVA (cerebral vascular accident) Mother Diabetes Heart failure MRSA carrier History of recurrent miscarriages Father Hypertension Social History adopted: No household members: spouse and children housing: house number of children: 1 current occupation: [employer] current occupational exposures/hazards: No pets and animals: [...] 3-4 times per week duration: 15-30 minutes/day kalpana/baptist: Roman Catholic seatbelt use: always do you feel safe at home: Yes 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 Date Name GA/Weeks Outcome Route Bth Weight Gen Labor Lgth Anesthesia Del Locatn Provider FOB 10/11/18 Chemical 4 spontaneous 03/30/23 Amanda 39 live - full term vacuum 6lbs 1oz Female epidural [facility] Delivery Date: 03/30/23 Last Updated by: Yasmin [...] ??-???- Negat (more content not included)... Normal [facility] Urine Cultureon 06-02-2025 URC #1,2 Gram positive francheska suggestive of a diphtheroid. Susceptibility not normally performed on this organism Urine Culture Urine Culture Urine Culture Corynebacterium amycolatum [place] Count 11,000-25,000 Corynebacterium minutissimum Corynebacterium minutissimum Normal [facility] Comment on above: Performed By: #### M 100.678, M100.2200, L400.0001 #### [facility] [address] [place], [place], [address] Cardiology Visit Reporton Cardiology Visit Report [facility] [address] [place] [address] OFFICE VISIT Date of Service: 05/30/25 MR#: [id number] Acct: [id number] Name: LUZ OLIVEIRA Rep #: [id number] : 2000 Provider: Dr. 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) 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 Accompanied by: Self Is patient in pain?: No Allergies escitalopram (From Lexapro) Adverse Reaction (Severe, Verified 05/30/25 09:34) SUICIDAL citalopram hydrobromide (From Celexa) Adverse Reaction (Verified 05/30/25 09:34) Other Medications ???Medication ???Instructions ???Recorded ???Confirmed ???Type ohjvemgp-lyr-Ty-FA 1 mg 1 tab PO DAILY 08/09/22 05/30/25 H istory tablet metoclopramide HCl 5 mg tablet 5 mg PO QACHS #60 tabs 04/19/25 Rx (Reglan) PFSH Medical History Fatty liver Renal atrophy, left Elevated liver enzymes Heart palpitations History of gestational hypertension Obesity affecting 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 cryztd-azqvbyj-fahiu reflux Surgical History [place] teeth removed Family History Grandmother Breast cancer Brain cancer Grandfather CVA (cerebral vascular accident) Mother Diabetes Heart failure MRSA carrier History of recurrent miscarriages Father Hypertension Social History adopted: No household members: spouse and children housing: house number of children: 1 current occupation: [employer] current occupational exposures/hazards: No pets and animals: [...] 3-4 times per week duration: 15-30 minutes/day kalpana/baptist: Roman Catholic seatbelt use: always do you feel safe at home: Yes 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: : Saravanan - 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 Normal [facility] Comprehensive Metabolic Prof ilon 05-30-2025 Albumin [Mass/Vol] 4.0 g/dL Normal 3.5-5.0 [facility] Comment on above: Performed By: #### L 100.0100, L500.4050 #### [facility] [address] [place], [address] Albumin/Globulin [Mass ratio] 1.5 {ratio} Normal 0.9-2.4 [facility] Comment on above: Performed By: #### L 100.0100, L500.4050 #### [facility] [address] [place], [address] ALK PHOS 56 U/L Normal 35-104 [facility] Comment on above: Performed By: #### L 100.0100, L500.4050 #### [facility] [address] [place], [address] ALT [Catalytic activity/Vol] 35 U/L Normal <=34 [facility] Comment on above: Performed By: #### L 100.0100, L500.4050 #### [facility] [address] [place], [address] AST [Catalytic activity/Vol] 29 U/L Normal <=31 [facility] Comment on above: Performed By: #### L 100.0100, L500.4050 #### [facility] [address] [place], [address] Bilirubin [Mass/Vol] 0.36 mg/dL Normal 0.00-1.30 [facility] Comment on above: Performed By: #### L 100.0100, L500.4050 #### [facility] [address] [place], [address] BUN/CRE 10.5 RATIO Normal 10-20 [facility] Comment on above: Performed By: #### L 100.0100, L500.4050 #### [facility] [address] [place], [address] Calcium [Mass/Vol] 9.3 mg/dL Normal 7.6-11.0 [facility] Comment on above: Performed By: #### L 100.0100, L500.4050 #### [facility] [address] [place], [address] Chloride [Moles/Vol] 104 mmol/L Normal 98-108 [facility] Comment on above: Performed By: #### L 100.0100, L500.4050 #### [facility] [address] [place], [address] CO2 [Moles/Vol] 20.0 mmol/L Low 21.0-32.0 [facility] Comment on above: Performed By: #### L 100.0100, L500.4050 #### [facility] [address] [place], [address] Creatinine [Mass/Vol] 0.57 mg/dL Low 0.70-1.20 [facility] Comment on above: Performed By: #### L 100.0100, L500.4050 #### [facility] [address] [place], [address] GAP 14 Normal 5-15 [facility] Comment on above: Performed By: #### L 100.0100, L500.4050 #### [facility] [address] [place], [address] GFR/1.73 sq M.predicted among non-blacks MDRD (S/P/Bld) [Vol rate/Area] 129 mL/min/{1.73_m2} Normal >60 [facility] Comment on above: Result Comment: mL/m in/1.73m2 CKD-EPI Creatinine Equation (2020) Performed By: #### L 100.0100, L500.4050 #### [facility] [address] [place], [address] Globulin (S) [Mass/Vol] 2.6 g/dL Normal 2.2-4.2 [facility] Comment on above: Performed By: #### L 100.0100, L500.4050 #### [facility] [address] [place], [address] Glucose [Mass/Vol] 92 mg/dL Normal 70-99 [facility] Comment on above: Performed By: #### L 100.0100, L500.4050 #### [facility] [address] [place], [address] Potassium [Moles/Vol] 3.8 mmol/L Normal 3.3-5.1 [facility] Comment on above: Performed By: #### L 100.0100, L500.4050 #### [facility] [address] [place], [address] Sodium [Moles/Vol] 138 mmol/L Normal 133-145 [facility] Comment on above: Performed By: #### L 100.0100, L500.4050 #### [facility] [address] [place], [address] T PROT 6.6 g/dL Normal 5.9-8.4 [facility] Comment on above: Performed By: #### L 100.0100, L500.4050 #### [facility] [address] [place], [address] Urea nitrogen [Mass/Vol] 6 mg/dL Normal 4-19 [facility] Comment on above: Performed By: #### L 100.0100, L500.4050 #### [facility] [address] [place], [address] Thyroid Stim Hormone (TSH)on 05-30-2025 TSH 0.631 uIU/mL Normal 0.300-4.200 [facility] Comment on above: Performed By: #### L 501.9520 #### [facility] [address] [place], [address] CBC W/Diff, Automatedon Absolute Lymph 1.81 X10 3/uL Normal 0.83-4.51 [facility] Comment on above: Performed By: #### L 100.0100, L500.4050 #### [facility] [address], [address] Absolute Neut 5.3 X10 3/uL Normal 2.0-7.7 [facility] Comment on above: Performed By: #### L 100.0100, L500.4050 #### [facility] [address] [place], [address] Basophils/100 WBC (Bld) 0.1 % Normal 0-1 [facility] Comment on above: Performed By: #### L 100.0100, L500.4050 #### [facility] [address] [place], [address] Eosinophils/100 WBC (Bld) 0.3 % Normal 0-5 [facility] Comment on above: Performed By: #### L 100.0100, L500.4050 #### [facility] [address] [place], [address] Erythrocyte distribution width (RBC) [Ratio] 12.9 % Normal 11.6-14.6 [facility] Comment on above: Performed By: #### L 100.0100, L500.4050 #### [facility] [address] [place], [address] Hematocrit (Bld) [Volume fraction] 36.8 % Low 37-47 [facility] Comment on above: Performed By: #### L 100.0100, L500.4050 #### [facility] [address] [place], [address] Hemoglobin (Bld) [Mass/Vol] 13.0 g/dL Normal 12.0-15.0 [facility] Comment on above: Performed By: #### L 100.0100, L500.4050 #### [facility] [address] [place], [address] IG% 0.400 Normal 0.0-0.9 [facility] Comment on above: Result Comment: IG% - Immature Granulocytes (promyelocytes, myelocytes and metamyelocytes) > 1% indicates that a LEFT SHIFT is Present. Performed By: #### L 100.0100, L500.4050 #### [facility] [address] [place], [address] Lymphocytes/100 WBC (Bld) 23.5 % Normal 19-41 [facility] Comment on above: Performed By: #### L 100.0100, L500.4050 #### [facility] [address] [place], [address] MCH (RBC) [Entitic mass] 31.0 pg Normal 27.0-32.0 [facility] Comment on above: Performed By: #### L 100.0100, L500.4050 #### [facility] [address] [place], [address] MCHC (RBC) [Mass/Vol] 35.3 g/dL Normal 32-36 [facility] Comment on above: Performed By: #### L 100.0100, L500.4050 #### [facility] [address] [place], [address] MCV (RBC) [Entitic vol] 87.6 fL Normal 81-99 [facility] Comment on above: Performed By: #### L 100.0100, L500.4050 #### [facility] [address] [place], [address] Monocytes/100 WBC (Bld) 6.7 % Normal 0-10 [facility] Comment on above: Performed By: #### L 100.0100, L500.4050 #### [facility] [address] [place], [address] Neutrophils/100 WBC (Bld) 69.0 % Normal 47-70 [facility] Comment on above: Performed By: #### L 100.0100, L500.4050 #### [facility] [address] [place], [address] Nucleated RBC (Bld) [#/Vol] 0 10*3/uL Normal 0-5 [facility] Comment on above: Performed By: #### L 100.0100, L500.4050 #### [facility] [address] [place], [address] Platelet mean volume (Bld) [Entitic vol] 10.3 fL Normal 6.2-12.0 [facility] Comment on above: Performed By: #### L 100.0100, L500.4050 #### [facility] [address] [place], [address] Platelets (Bld) [#/Vol] 198 10*3/uL Normal 150-450 [facility] Comment on above: Performed By: #### L 100.0100, L500.4050 #### [facility] [address] [place], [address] RBC (Bld) [#/Vol] 4.20 10*6/uL Normal 4.2-5.4 [facility] Comment on above: Performed By: #### L 100.0100, L500.4050 #### [facility] [address] [place], [address] RDW SD 39.9 fl Normal 35.1-43.9 [facility] Comment on above: Performed By: #### L 100.0100, L500.4050 #### [facility] [address] [place], [address] WBC (Bld) [#/Vol] 7.7 10*3/uL Normal 4.4-11.0 [facility] Comment on above: Performed By: #### L 100.0100, L500.4050 #### [facility] [address] [place], [address] Comprehensive Metabolic Prof [facility] 05-14-2025 Albumin [Mass/Vol] 4.2 g/dL Normal 3.5-5.0 [facility] Comment on above: Performed By: #### L 100.0100, L500.4050 #### [facility] [address] [place], [address] Albumin/Globulin [Mass ratio] 1.5 {ratio} Normal 0.9-2.4 [facility] Comment on above: Performed By: #### L 100.0100, L500.4050 #### [facility] [address] [place], [address] ALK PHOS 61 U/L Normal 35-104 [facility] Comment on above: Performed By: #### L 100.0100, L500.4050 #### [facility] [address] [place], [address] ALT [Catalytic activity/Vol] 47 U/L High <=34 [facility] Comment on above: Performed By: #### L 100.0100, L500.4050 #### [facility] [address] [place], [address] AST [Catalytic activity/Vol] 36 U/L High <=31 [facility] Comment on above: Performed By: #### L 100.0100, L500.4050 #### [facility] [address] [place], [address] Bilirubin [Mass/Vol] 0.52 mg/dL Normal 0.00-1.30 [facility] Comment on above: Performed By: #### L 100.0100, L500.4050 #### [facility] [address] [place], [address] BUN/CRE 10.7 RATIO Normal 10-20 [facility] Comment on above: Performed By: #### L 100.0100, L500.4050 #### [facility] [address] [place], [address] Calcium [Mass/Vol] 9.5 mg/dL Normal 7.6-11.0 [facility] Comment on above: Performed By: #### L 100.0100, L500.4050 #### [facility] [address] [place], [address] Chloride [Moles/Vol] 102 mmol/L Normal 98-108 [facility] Comment on above: Performed By: #### L 100.0100, L500.4050 #### [facility] [address] [place], [address] CO2 [Moles/Vol] 18.6 mmol/L Low 21.0-32.0 [facility] Comment on above: Performed By: #### L 100.0100, L500.4050 #### [facility] [address] [place], [address] Creatinine [Mass/Vol] 0.66 mg/dL Low 0.70-1.20 [facility] Comment on above: Performed By: #### L 100.0100, L500.4050 #### [facility] [address] [place], [address] GAP 16 High 5-15 [facility] Comment on above: Performed By: #### L 100.0100, L500.4050 #### [facility] [address] [place], [address] GFR/1.73 sq M.predicted among non-blacks MDRD (S/P/Bld) [Vol rate/Area] 125 mL/min/{1.73_m2} Normal >60 [facility] Comment on above: Result Comment: mL/m in/1.73m2 CKD-EPI Creatinine Equation (2020) Performed By: #### L 100.0100, L500.4050 #### [facility] [address] [place], [address] Globulin (S) [Mass/Vol] 2.8 g/dL Normal 2.2-4.2 [facility] Comment on above: Performed By: #### L 100.0100, L500.4050 #### [facility] [address] [place], [address] Glucose [Mass/Vol] 92 mg/dL Normal 70-99 [facility] Comment on above: Performed By: #### L 100.0100, L500.4050 #### [facility] [address] [place], [address] Potassium [Moles/Vol] 3.8 mmol/L Normal 3.3-5.1 [facility] Comment on above: Performed By: #### L 100.0100, L500.4050 #### [facility] [address] [place], [address] Sodium [Moles/Vol] 137 mmol/L Normal 133-145 [facility] Comment on above: Performed By: #### L 100.0100, L500.4050 #### [facility] [address] [place], [address] T PROT 7.0 g/dL Normal 5.9-8.4 [facility] Comment on above: Performed By: #### L 100.0100, L500.4050 #### [facility] [address] [place], [address] Urea nitrogen [Mass/Vol] 7 mg/dL Normal 4-19 [facility] Comment on above: Performed By: #### L 100.0100, L500.4050 #### [facility] [address] 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 Rama Trammell DO Age/Sex: 24/F Location: [facility] [place] Status: Signed Intake Vital Signs 05/07/25 14:40 05/14/25 14:48 05/14/25 14:48 Height 5 ft 1 in 5 ft 1 in 5 ft 1 in Weight: 185 lb 1 oz BMI 34.9 BP 100/52 L Intake Visit Reasons: 14wk OB, elevated liver enzymes cbc/cmp FU 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 Is patient in pain?: No Allergies escitalopram (From Lexapro) Adverse Reaction (Severe, Verified 05/14/25 14:48) SUICIDAL citalopram hydrobromide (From Celexa) Adverse Reaction (Verified 05/14/25 14:48) Other Medications ???Medication ???Instructions ???Recorded ???Confirmed ???Type zdqwqyol-atg-Zr-FA 1 mg 1 tab PO DAILY 08/09/22 05/14/25 H istory tablet metoclopramide HCl 5 mg tablet 5 mg PO QACHS #60 tabs 07/10/25 08 /04/25 Rx (Reglan) Last Menstrual Period: 02/02/25 Zika: Zika virus screening: Negative : No PFSH PFSH Medical History Congenital bmnwcp-mbjkrjp-uumzl reflux Surgical History [place] teeth removed Family History Grandmother Breast cancer Brain cancer Grandfather CVA (cerebral vascular accident) Mother Diabetes Heart failure MRSA carrier History of recurrent miscarriages Father Hypertension Social History adopted: No household members: spouse and children housing: house number of children: 1 current occupation: [employer] current occupational exposures/hazards: No pets and animals: [...] 3-4 times per week duration: 15-30 minutes/day kalpana/baptist: Roman Catholic seatbelt use: always do you feel safe at home: Yes 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 (more content not included)... Normal [facility] CBC W/Diff, Automatedon 07-2 Absolute Lymph 1.24 X10 3/uL Normal 0.83-4.51 [facility] Comment on above: Performed By: #### L 100.0100, L500.4050 #### [facility] [address] [place], [address] Absolute Neut 6.2 X10 3/uL Normal 2.0-7.7 [facility] Comment on above: Performed By: #### L 100.0100, L500.4050 #### [facility] [address] [place], [address] Basophils/100 WBC (Bld) 0.1 % Normal 0-1 [facility] Comment on above: Performed By: #### L 100.0100, L500.4050 #### [facility] [address] [place], [address] Eosinophils/100 WBC (Bld) 0.1 % Normal 0-5 [facility] Comment on above: Performed By: #### L 100.0100, L500.4050 #### [facility] [address] [place], [address] Erythrocyte distribution width (RBC) [Ratio] 12.5 % Normal 11.6-14.6 [facility] Comment on above: Performed By: #### L 100.0100, L500.4050 #### [facility] [address] [place], [address] Hematocrit (Bld) [Volume fraction] 36.6 % Low 37-47 [facility] Comment on above: Performed By: #### L 100.0100, L500.4050 #### [facility] [address] [place], [address] Hemoglobin (Bld) [Mass/Vol] 12.8 g/dL Normal 12.0-15.0 [facility] Comment on above: Performed By: #### L 100.0100, L500.4050 #### [facility] [address] [place], [address] IG% 0.500 Normal 0.0-0.9 [facility] Comment on above: Result Comment: IG% - Immature Granulocytes (promyelocytes, myelocytes and metamyelocytes) > 1% indicates that a LEFT SHIFT is Present. Performed By: #### L 100.0100, L500.4050 #### [facility] [address] [place], [address] Lymphocytes/100 WBC (Bld) 15.8 % Low 19-41 [facility] Comment on above: Performed By: #### L 100.0100, L500.4050 #### [facility] [address] [place], [address] MCH (RBC) [Entitic mass] 30.8 pg Normal 27.0-32.0 [facility] Comment on above: Performed By: #### L 100.0100, L500.4050 #### [facility] [address] [place], [address] MCHC (RBC) [Mass/Vol] 35.0 g/dL Normal 32-36 [facility] Comment on above: Performed By: #### L 100.0100, L500.4050 #### [facility] [address] [place], [address] MCV (RBC) [Entitic vol] 88.2 fL Normal 81-99 [facility] Comment on above: Performed By: #### L 100.0100, L500.4050 #### [facility] [address] [place], [address] Monocytes/100 WBC (Bld) 5.0 % Normal 0-10 [facility] Comment on above: Performed By: #### L 100.0100, L500.4050 #### [facility] [address] [place], [address] Neutrophils/100 WBC (Bld) 78.5 % High 47-70 [facility] Comment on above: Performed By: #### L 100.0100, L500.4050 #### [facility] [address] [place], [address] Nucleated RBC (Bld) [#/Vol] 0 10*3/uL Normal 0-5 [facility] Comment on above: Performed By: #### L 100.0100, L500.4050 #### [facility] [address] [place], [address] Platelet mean volume (Bld) [Entitic vol] 10.7 fL Normal 6.2-12.0 [facility] Comment on above: Performed By: #### L 100.0100, L500.4050 #### [facility] [address] [place], [address] Platelets (Bld) [#/Vol] 180 10*3/uL Normal 150-450 [facility] Comment on above: Performed By: #### L 100.0100, L500.4050 #### [facility] [address] [place], [address] RBC (Bld) [#/Vol] 4.15 10*6/uL Low 4.2-5.4 [facility] Comment on above: Performed By: #### L 100.0100, L500.4050 #### [facility] [address] [place], [address] RDW SD 39.5 fl Normal 35.1-43.9 [facility] Comment on above: Performed By: #### L 100.0100, L500.4050 #### [facility] [address] [place], [address] WBC (Bld) [#/Vol] 7.8 10*3/uL Normal 4.4-11.0 [facility] Comment on above: Performed By: #### L 100.0100, L500.4050 #### [facility] [address] [place], [address] Comprehensive Metabolic Prof [facility] 05-07-2025 Albumin [Mass/Vol] 4.2 g/dL Normal 3.5-5.0 [facility] Comment on above: Performed By: #### L 100.0100, L500.4050 #### [facility] [address] [place], [address] Albumin/Globulin [Mass ratio] 1.6 {ratio} Normal 0.9-2.4 [facility] Comment on above: Performed By: #### L 100.0100, L500.4050 #### [facility] [address] [place], [address] ALK PHOS 62 U/L Normal 35-104 [facility] Comment on above: Performed By: #### L 100.0100, L500.4050 #### [facility] [address] [place], [address] ALT [Catalytic activity/Vol] 58 U/L High <=34 [facility] Comment on above: Performed By: #### L 100.0100, L500.4050 #### [facility] [address] [place], [address] AST [Catalytic activity/Vol] 43 U/L High <=31 [facility] Comment on above: Performed By: #### L 100.0100, L500.4050 #### [facility] [address] [place], [address] Bilirubin [Mass/Vol] 0.56 mg/dL Normal 0.00-1.30 [facility] Comment on above: Performed By: #### L 100.0100, L500.4050 #### [facility] [address] [place], [address] BUN/CRE 10.7 RATIO Normal 10-20 [facility] Comment on above: Performed By: #### L 100.0100, L500.4050 #### [facility] [address] [place], [address] Calcium [Mass/Vol] 9.5 mg/dL Normal 7.6-11.0 [facility] Comment on above: Performed By: #### L 100.0100, L500.4050 #### [facility] [address] [place], [address] Chloride [Moles/Vol] 102 mmol/L Normal 98-108 [facility] Comment on above: Performed By: #### L 100.0100, L500.4050 #### [facility] [address] [place], [address] CO2 [Moles/Vol] 17.7 mmol/L Low 21.0-32.0 [facility] Comment on above: Performed By: #### L 100.0100, L500.4050 #### [facility] [address] [place], [address] Creatinine [Mass/Vol] 0.59 mg/dL Low 0.70-1.20 [facility] Comment on above: Performed By: #### L 100.0100, L500.4050 #### [facility] [address] [place], [address] GAP 16 High 5-15 [facility] Comment on above: Performed By: #### L 100.0100, L500.4050 #### [facility] [address] [place], [address] GFR/1.73 sq M.predicted among non-blacks MDRD (S/P/Bld) [Vol rate/Area] 128 mL/min/{1.73_m2} Normal >60 [facility] Comment on above: Result Comment: mL/m in/1.73m2 CKD-EPI Creatinine Equation (2020) Performed By: #### L 100.0100, L500.4050 #### [facility] [address] [place], [address] Globulin (S) [Mass/Vol] 2.7 g/dL Normal 2.2-4.2 [facility] Comment on above: Performed By: #### L 100.0100, L500.4050 #### [facility] [address] [place], [address] Glucose [Mass/Vol] 110 mg/dL High 70-99 [facility] Comment on above: Performed By: #### L 100.0100, L500.4050 #### [facility] [address] [place], [address] Potassium [Moles/Vol] 3.7 mmol/L Normal 3.3-5.1 [facility] Comment on above: Performed By: #### L 100.0100, L500.4050 #### [facility] [address] [place], [address] Sodium [Moles/Vol] 135 mmol/L Normal 133-145 [facility] Comment on above: Performed By: #### L 100.0100, L500.4050 #### [facility] [address] [place], [address] T PROT 6.9 g/dL Normal 5.9-8.4 [facility] Comment on above: Performed By: #### L 100.0100, L500.4050 #### [facility] [address] [place], [address] Urea nitrogen [Mass/Vol] 6 mg/dL Normal 4-19 [facility] Comment on above: Performed By: #### L 100.0100, L500.4050 #### [facility] [address] [place], [address] HIVon 05-07-2025 HIV Non-Reactive Normal Nonreactive [facility] Comment on above: Result Comment: Non- Reactive Reactive Repeatedly reactive samples must be confirmed according to CDC recommended confirmatory algorithms. The subresults for either HIVAG or AHIV can be used as an aid in the selection of the confirmation algorithm for reactive samples. [facility]. Order the HIV antibody detection and differentiation: lc#[id number] Performed By: #### L 100.0100, L500.4050 #### [facility] [address] [place], [address] Hemoglobin A1con 05-07-2025 HbA1c (Bld) [Mass fraction] 5.1 % Normal <=5.6 [facility] Comment on above: Result Comment: Norm al < 5.7 % Prediabetic 5.7 - 6.4 % Diabetic >or= 6.5 % Please note range changes. Performed By: #### L 100.0100, L500.4050 #### [facility] [address] [place], [address] Hepatitis C Antibodyon 05-07 Hepatitis C Ab Non-Reactive Normal Nonreactive [facility] Comment on above: Result Comment: Reac tive: Presumptive evidence of antibodies to HCV. Follow CDC recommendations for supplemental testing. Non-Reactive: Antibodies to HCV were not detected; does not exclude the possibility of exposure to HCV Reactive Results are presumptive evidence of antibodies to HCV. Follow CDC recommendations for supplemental testing. Order confirmation testing: HCV Quant by PCR testing - HCVPCR #[id number] Non Reactive: < 0.8 Equivocal: >/= 0.8 to < 1.0 Reactive: >/= 1.0 The CDC requires that a reactive/equivocal HCV antibody result be sent out for confirmation. HCV Quant by PCR testing. Performed By: #### L 100.0100, L500.4050 #### [facility] [address] [place], [address] L3890.6102on 05-07-2025 HEP B Surf Ag Non-Reactive Normal Nonreactive [facility] Comment on above: Result Comment: Reac tive: Presumptive evidence of HBV. Repeatedly reactive samples must be confirmed using a neutralization test ([employer] HBsAg Confirmatory Test) Non-Reactive: HBsAg not detected; does not exclude the possibility of exposure to HBV Performed By: #### L 100.0100, L500.4050 #### [facility] [address], [address] L509.4006on 05-07-2025 Rubella IgG REAC Normal Nonreactive [facility] Comment on above: Result Comment: Anti body Result: Interpretation Non-Reactive: Non-Immune Reactive: Immune The following results were obtained with the [employer] Rubella IgG assay. Results from assays of other manufacturers cannot be used interchangeably. Performed By: #### L 100.0100, L500.4050 #### [facility] [address] [facility] [place], [address] Lieutenant Shift Supervisor Office Visit Reporton 05-07-2025 Lieutenant Shift Supervisor Office Visit Report [facility] [address], [address] [place] [address] OFFICE VISIT Date of Service: 05/07/25 MR#: [id number] Acct: [id number] Name: LUZ OLIVEIRA Rep #: [id number] : 2000 Provider: JELENA Ordonez ams Age/Sex: 24/F Location: [facility] [place] Status: Signed Intake Vital Signs 01/02/25 18:31 04/09/25 10:40 07/28/25 14:40 Height 5 ft 1 in 5 ft 1 in 5 ft 1 in Weight: 187 lb 4 oz BMI 35.4 BP 117/83 H Intake Visit Reasons: 13wk OB Chief Complaint: 13wk OB [employer]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 Is patient in pain?: No Allergies escitalopram (From Lexapro) Adverse Reaction (Severe, Verified 05/07/25 14:39) SUICIDAL citalopram hydrobromide (From Celexa) Adverse Reaction (Verified 05/07/25 14:39) Other Medications ???Medication ???Instructions ???Recorded ???Confirmed ???Type tibzpcxc-dzt-Cz-FA 1 mg 1 tab PO DAILY 08/09/22 05/07/25 H istory tablet metoclopramide HCl 5 mg tablet 5 mg PO QACHS #60 tabs 04/19/25 Rx (Reglan) Last Menstrual Period: 02/02/25 : No PFSH PFSH Medical History Congenital lmmobd-oekschc-cqvwl reflux Surgical History [place] teeth removed Family History Grandmother Breast cancer Brain cancer Grandfather CVA (cerebral vascular accident) Mother Diabetes Heart failure MRSA carrier History of recurrent miscarriages Father Hypertension Social History adopted: No household members: spouse and children housing: house number of children: 1 current occupation: [employer] current occupational exposures/hazards: No pets and animals: [...] 3-4 times per week duration: 15-30 minutes/day kalpana/baptist: Roman Catholic seatbelt use: always do you feel safe at home: Yes 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 Normal [facility] Syphilis Antibodieson 2024 Syphilis Abs Non-Reactive Normal Nonreactive [facility] Comment on above: Performed By: #### L 100.0100, L500.4050 #### [facility] [address] [place], [address] Type AND Screenon 05-07-2025 Ab SCREEN GEL Negative Normal [facility] Comment on above: Order Comment: PN Performed By: #### L 100.0100, L500.4050 #### [facility] [address] [place], [address] Chlamydia/GC CHICHO aptimaon CHLAMY,NUC ACID Negative Normal Negative [facility] Comment on above: Performed By: #### L 100.0100 #### [facility] [address] [place], [address] GC BY NUC ACID Negative Normal Negative [facility] Comment on above: Result Comment: Perf ormed at: =G - [facility] [address] [id number] [address] Scan Technologist: Rubi Snow MD, Phone: [phone] Performed By: #### L 100.0100 #### [facility] [address] [place], [address] PAP I-G w/rfx hrHPV-Aptimaon 04-12-2025 ADEQ Comment Normal . [facility] Comment on above: Order Comment: REDRA W. PREVIOUS SPECIMEN REJECTED DUE TO CLOTTED SPECIMEN. 01/02/251948 Result Comment: Sati sfactory for evaluation. Endocervical and/or squamous metaplastic cells (endocervical component) are present. Performed By: #### L 100.0100 #### [facility] [address] [place], [address] COMM . Normal . [facility] Comment on above: Order Comment: REDRA W. PREVIOUS SPECIMEN REJECTED DUE TO CLOTTED SPECIMEN. 01/02/251948 Performed By: #### L 100.0100 #### [facility] [address] [place], [address] COMMENT Comment Normal . [facility] Comment on above: Order Comment: REDRA W. PREVIOUS SPECIMEN REJECTED DUE TO CLOTTED SPECIMEN. 01/02/251948 Result Comment: This liquid based ThinPrep(R) pap test was screened with the use of an image guided system. Performed By: #### L 100.0100 #### [facility] [address] [place], [address] DIAG Comment Normal . [facility] Comment on above: Order Comment: REDRA W. PREVIOUS SPECIMEN REJECTED DUE TO CLOTTED SPECIMEN. 01/02/251948 Result Comment: NEGA TIVE FOR INTRAEPITHELIAL LESION OR MALIGNANCY. Performed By: #### L 100.0100 #### [facility] [address] [place], [place], [address] HPV RFLX Comment Normal . [facility] Comment on above: Order Comment: REDRA W. PREVIOUS SPECIMEN REJECTED DUE TO CLOTTED SPECIMEN. 01/02/251948 Result Comment: The HPV DNA reflex criteria were not met with this specimen result therefore, no HPV testing was performed. Performed at: - [facility] [id number] [address] Scan Technologist: Rubi Snow MD, Phone: [phone] Performed By: #### L 100.0100 #### [facility] [address] [place], [place], [address] PAPSMR Comment Normal . [facility] Comment on above: Order Comment: REDRA [...] occur. Performed By: #### L 100.0100 #### [facility] [address] [place], [place], [address] PERFORM Comment Normal . [facility] Comment on above: Order Comment: REDRA W. PREVIOUS SPECIMEN REJECTED DUE TO CLOTTED SPECIMEN. 01/02/251948 Result Comment: Delores Lombardo, Cartoon Designer (ASCP) Performed By: #### L 100.0100 #### [facility] [address] [place], [place], [address] Urine Cultureon 04-11-2025 [facility] Mixed Gram Positive Organisms [place] Count 80,000-100,000 MIXC Mixed contaminants. Submit a new specimen if indicated. Normal [facility] Comment on above: Performed By: #### L 100.0100 #### [facility] [place], [address] Lieutenant Shift Supervisor Office Visit Reporton 04-09-2025 Lieutenant Shift Supervisor Office Visit Report [facility] [address], [address] [place] [address] OFFICE VISIT Date of Service: 04/09/25 MR#: [id number] Acct: [id number] Name: LUZ OLIVEIRA Rep #: [id number] : 2000 Provider: Dr. Geraldine storey MD Age/Sex: 24/F Location: [facility] [place] Status: Signed Intake Vital Signs 01/02/25 18:31 03/13/25 11:49 04/09/25 10:39 04/09/25 10:40 Height 5 ft 1 in 5 ft 1 in 5 ft 1 in 5 ft 1 in Weight: 194 lb 8 oz BMI 36.7 BP 106/69 Intake Visit Reasons: *NEW* NOB LMP 02/02, KIMO 11/09 per 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 Is patient in pain?: Yes (cramping with urination) Allergies escitalopram (From Lexapro) Adverse Reaction (Severe, Verified 04/09/25 10:39) SUICIDAL citalopram hydrobromide (From Celexa) Adverse Reaction (Verified 04/09/25 10:39) Other Medications ???Medication ???Instructions ???Recorded ???Confirmed ???Type fqkiilbq-ouq-Zb-FA 1 mg 1 tab PO DAILY 08/09/22 04/09/25 H istory tablet Last Menstrual Period: 02/02/25 Zika: Zika virus screening: Negative : No PFSH PFSH Medical History (Updated 04/09/25 @ 10:50 by Remedios Wong) Congenital qjieiw-avvykmd-wngfw reflux Surgical History [place] teeth removed Family History Grandmother Breast cancer Brain cancer Grandfather CVA (cerebral vascular accident) Mother Diabetes Heart failure MRSA carrier History of recurrent miscarriages Father Hypertension Social History adopted: No household members: spouse and children housing: house number of children: 1 current occupation: [employer] current occupational exposures/hazards: No pets and animals: [...] 3-4 times per week duration: 15-30 minutes/day kalpana/baptist: Roman Catholic seatbelt use: always do you feel safe at home: Yes 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: : 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 Date Name GA/Weeks Outcome Route Bth Weight Infant Gen Labor Lgth Anesthesia Del Locatn Provider FOB 10/11/18 Chemical 4 spontaneous 03/30/23 Amanda 39 live - full term vacuum 6lbs 1oz Female epidural [place] Delivery Date: 03/30/23 Last Updated by: Yasmin Newman RN Hyperemesis, Subchorionic hemorrhage, GHTN, SGA/IUGR HPI *NEW* NOB LMP 02/02, KIMO 11/09 per Details: ULZ OLIVEIRA is a 24 year old who [...] Normal am (more content not included)... Normal [facility] Protein+Creatinine Ratio,Uri neon 04-09-2025 PROT:CRE RATIO 58 mg/g CRE Normal 0-200 [facility] Comment on above: Performed By: #### L 100.0100 #### [facility] [address] [place], [address] Protein (U) [Mass/Vol] 15.6 mg/dL High 0.0-12.0 [facility] Comment on above: Performed By: #### L 100.0100 #### [facility] [address] [place], [address] Transvaginal w/Preg USon Transvaginal w/Preg US [facility] [address] [place], [place] [address] Transvaginal w/Preg US MR#: [id number] Acct: [id number] Name: LUZ OLIVEIRA Rep #: [id number] : 2000 F 24 From: Maxwell Ponce MD PCP: Care Physician,No Primary Status: REG CLI Study: Transvaginal w/Preg US Date of Exam: 03/15/25 Exam# [id number] Ordering Dr: Remedios Garcia HEAVY CLEANER HEAVY CLEANER -C PROCEDURE: TRANSVAGINAL W/PREG US 03/15/2025 REASON [...] follow-up. 2. Small perigestational hemorrhage. Reading Location: [id number] CC: JARAD Garcia; No Primary Care Physician Civil Clerk: Signed Normal [facility] hCG Titer Quant., Serumon HCG QUANT. 7025 mIU/mL High <9 non-preg [facility] Comment on above: Result Comment: Gest ational Age 0.2-1 Week: 5-50 mIU/mL 1-2 Weeks: 50-500 mIU/mL 2-3 Weeks: 100-5000 mIU/mL 3-4 Weeks: 500-10,000 mIU/mL 4-5 Weeks:1000-50,000 mIU/mL 5-6 Weeks: 10,000-100,000 mIU/mL 6-8 Weeks: 15,000-200,000 mIU/mL 2-3 Months:10,000-100,000 mIU/mL Performed By: #### L 100.0100 #### [facility] [address], [address] Office Visit Reporton 2024 Office Visit Report [facility] [address] [place] [address] OFFICE VISIT Date of Service: 03/13/25 MR#: [id number] Acct: [id number] Patient: LUZ OLIVEIRA Rep #: [id number] : 2000 Provider: JARAD moctezuma Age/Sex: 24/F Location: [facility] [place] Status: Signed Intake Vital Signs 01/02/25 18:31 03/13/25 11:49 Height 5 ft 1 in 5 ft 1 in Weight: 200 lb 6 oz BMI 37.8 BP 118/72 Intake Visit Reasons: Pre New OB, Confirm preg, Vitals Get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 Is patient in pain?: No Allergies escitalopram (From Lexapro) Adverse Reaction (Severe, Verified 03/13/25 11:12) SUICIDAL citalopram hydrobromide (From Celexa) Adverse Reaction (Verified 03/13/25 11:12) Other Medications ???Medication ???Instructions ???Recorded ???Confirmed ???Type xuvfhrcr-emr-Ri-FA 1 mg 1 tab PO DAILY 08/09/22 [...] Pt with C/O spotting since last night. [facility] notified in office. HcG and TV [...] Acute (9) Autism: Status: Acute (10) Congenital hkxulx-ljznjph-brfbo reflux: Status: Acute Comment: Recurrent UTI's and Kidney stones Orders: Orders hCG Titer Quant., Serum Today Remedios Garcia HEAVY CLEANER, HEAVY CLEANER-C O20.9 - Hemorrhage in early , unspecified [...] fallen in the past year?: No 03/13/25 6928 (more content not included)... Normal [facility] hCG Titer Quant., Serumon HCG QUANT. 3759 mIU/mL High <9 non-preg [facility] Comment on above: Result Comment: Gest ational Age 0.2-1 Week: 5-50 mIU/mL 1-2 Weeks: 50-500 mIU/mL 2-3 Weeks: 100-5000 mIU/mL 3-4 Weeks: 500-10,000 mIU/mL 4-5 Weeks:1000-50,000 mIU/mL 5-6 Weeks: 10,000-100,000 mIU/mL 6-8 Weeks: 15,000-200,000 mIU/mL 2-3 Months:10,000-100,000 mIU/mL Performed By: #### L 100.0100 #### [facility] [address] [facility] [place], [place], [address] Culture, Blood (WB)on 2024 CUB Blood cultures x2, from two different sites No growth in 5 days. Normal [facility] Comment on above: Performed By: #### M 100.678, M100.2200, L400.0001 #### [facility] [address] [facility] [place], [place], [address] Urine Cultureon 01-04-2025 [facility] Presumptive E. coli [place] Count 25,000-50,000 Presumptive E. coli: REACTION Ampicillin [...] TMP SMX Islt BRANDI <=20 S Normal [facility] Comment on above: Performed By: #### M 100.678, M100.2200, L400.0001 #### [facility] [address] [facility] [place], [address] Abdomen/Pelvis W IV Cont ONL Yon 01-02-2025 Abdomen/Pelvis W IV Cont ONLY [facility] [address] [place], [place] [address] Abdomen/Pelvis W IV Cont ONLY MR#: [id number] Acct: [id number] Name: LUZ OLIVEIRA Rep #: [id number] : 2000 F 24 From: Yari Reyes nd, MD PCP: Care Physician,No Primary Status: REG ER Study: Abdomen/Pelvis W IV Cont ONLY Date of Exam: Exam# [id number] Ordering Dr: Mendez Gardner DO PROCEDURE: ABDOMEN/PELVIS [...] recommended. 3. Diffuse hepatic steatosis. Reading Location: [facility] CC: Dr. Mendez Gardner, DO; No Primary Care Physician Civil Clerk: Signed Normal [facility] CBC W/Diff, Automatedon 12-10 Absolute Lymph 0.64 X10 3/uL Low 0.83-4.51 [facility] Comment on above: Order Comment: REDRA W. PREVIOUS SPECIMEN REJECTED DUE TO CLOTTED SPECIMEN. 01/02/251948 Performed By: #### L 100.0100 #### [facility] [address] [place], [address] Absolute Neut 9.4 X10 3/uL High 2.0-7.7 [facility] Comment on above: Order Comment: REDRA W. PREVIOUS SPECIMEN REJECTED DUE TO CLOTTED SPECIMEN. 01/02/251948 Performed By: #### L 100.0100 #### [facility] [address] [place], [address] Basophils/100 WBC (Bld) 0.1 % Normal 0-1 [facility] Comment on above: Order Comment: REDRA W. PREVIOUS SPECIMEN REJECTED DUE TO CLOTTED SPECIMEN. 01/02/251948 Performed By: #### L 100.0100 #### [facility] [address] [place], [address] Eosinophils/100 WBC (Bld) 0.0 % Normal 0-5 [facility] Comment on above: Order Comment: REDRA W. PREVIOUS SPECIMEN REJECTED DUE TO CLOTTED SPECIMEN. 01/02/251948 Performed By: #### L 100.0100 #### [facility] [address] [place], [address] Erythrocyte distribution width (RBC) [Ratio] 12.4 % Normal 11.6-14.6 [facility] Comment on above: Order Comment: REDRA W. PREVIOUS SPECIMEN REJECTED DUE TO CLOTTED SPECIMEN. 01/02/251948 Performed By: #### L 100.0100 #### [facility] [address] [place], [address] Hematocrit (Bld) [Volume fraction] 41.9 % Normal 37-47 [facility] Comment on above: Order Comment: REDRA W. PREVIOUS SPECIMEN REJECTED DUE TO CLOTTED SPECIMEN. 01/02/251948 Performed By: #### L 100.0100 #### [facility] [address] [place], [address] Hemoglobin (Bld) [Mass/Vol] 14.6 g/dL Normal 12.0-15.0 [facility] Comment on above: Order Comment: REDRA W. PREVIOUS SPECIMEN REJECTED DUE TO CLOTTED SPECIMEN. 01/02/251948 Performed By: #### L 100.0100 #### [facility] [address] [place], [address] IG% 0.600 Normal 0.0-0.9 [facility] Comment on above: Order Comment: REDRA W. PREVIOUS SPECIMEN REJECTED DUE TO CLOTTED SPECIMEN. 01/02/251948 Result Comment: IG% - Immature Granulocytes (promyelocytes, myelocytes and metamyelocytes) > 1% indicates that a LEFT SHIFT is Present. Performed By: #### L 100.0100 #### [facility] [address] [place], [address] Lymphocytes/100 WBC (Bld) 5.9 % Low 19-41 [facility] Comment on above: Order Comment: REDRA W. PREVIOUS SPECIMEN REJECTED DUE TO CLOTTED SPECIMEN. 01/02/251948 Performed By: #### L 100.0100 #### [facility] [address] [place], [address] MCH (RBC) [Entitic mass] 30.8 pg Normal 27.0-32.0 [facility] Comment on above: Order Comment: REDRA W. PREVIOUS SPECIMEN REJECTED DUE TO CLOTTED SPECIMEN. 01/02/251948 Performed By: #### L 100.0100 #### [facility] [address] [place], [address] MCHC (RBC) [Mass/Vol] 34.8 g/dL Normal 32-36 [facility] Comment on above: Order Comment: REDRA W. PREVIOUS SPECIMEN REJECTED DUE TO CLOTTED SPECIMEN. 01/02/251948 Performed By: #### L 100.0100 #### [facility] [address] [place], [address] MCV (RBC) [Entitic vol] 88.4 fL Normal 81-99 [facility] Comment on above: Order Comment: REDRA W. PREVIOUS SPECIMEN REJECTED DUE TO CLOTTED SPECIMEN. 01/02/251948 Performed By: #### L 100.0100 #### [facility] [address] [place], [address] Monocytes/100 WBC (Bld) 5.9 % Normal 0-10 [facility] Comment on above: Order Comment: REDRA W. PREVIOUS SPECIMEN REJECTED DUE TO CLOTTED SPECIMEN. 01/02/251948 Performed By: #### L 100.0100 #### [facility] [address] [place], [address] Neutrophils/100 WBC (Bld) 87.5 % High 47-70 [facility] Comment on above: Order Comment: REDRA W. PREVIOUS SPECIMEN REJECTED DUE TO CLOTTED SPECIMEN. 01/02/251948 Performed By: #### L 100.0100 #### [facility] [address] [place], [address] Nucleated RBC (Bld) [#/Vol] 0 10*3/uL Normal 0-5 [facility] Comment on above: Order Comment: REDRA W. PREVIOUS SPECIMEN REJECTED DUE TO CLOTTED SPECIMEN. 01/02/251948 Performed By: #### L 100.0100 #### [facility] [address] [place], [address] Platelet mean volume (Bld) [Entitic vol] 10.2 fL Normal 6.2-12.0 [facility] Comment on above: Order Comment: REDRA W. PREVIOUS SPECIMEN REJECTED DUE TO CLOTTED SPECIMEN. 01/02/251948 Performed By: #### L 100.0100 #### [facility] [address] [place], [address] Platelets (Bld) [#/Vol] 188 10*3/uL Normal 150-450 [facility] Comment on above: Order Comment: REDRA W. PREVIOUS SPECIMEN REJECTED DUE TO CLOTTED SPECIMEN. 01/02/251948 Performed By: #### L 100.0100 #### [facility] [address] [place], [address] RBC (Bld) [#/Vol] 4.74 10*6/uL Normal 4.2-5.4 [facility] Comment on above: Order Comment: REDRA W. PREVIOUS SPECIMEN REJECTED DUE TO CLOTTED SPECIMEN. 01/02/251948 Performed By: #### L 100.0100 #### [facility] [address] [place], [address] RDW SD 40.1 fl Normal 35.1-43.9 [facility] Comment on above: Order Comment: REDRA W. PREVIOUS SPECIMEN REJECTED DUE TO CLOTTED SPECIMEN. 01/02/251948 Performed By: #### L 100.0100 #### [facility] [address] [place], [address] WBC (Bld) [#/Vol] 10.8 10*3/uL Normal 4.4-11.0 [facility] Comment on above: Order Comment: REDRA W. PREVIOUS SPECIMEN REJECTED DUE TO CLOTTED SPECIMEN. 01/02/251948 Performed By: #### L 100.0100 #### [facility] [address] [place], [address] Absolute Neut Normal 2.0-7.7 [facility] Comment on above: Result Comment: This specimen has been REJECTED due to Laboratory criteria: Clotted. ED-ELVIN has been notified of need of recollection. 01/02/251947 Performed By: #### M 100.678, M100.2200, L400.0001 #### [facility] [address] [place], [address] HCT Normal 37-47 [facility] Comment on above: Result Comment: This specimen has been REJECTED due to Laboratory criteria: Clotted. ED-ELVIN has been notified of need of recollection. 01/02/251947 Performed By: #### M 100.678, M100.2200, L400.0001 #### [facility] [address] [place], [address] HGB Normal 12.0-15.0 [facility] Comment on above: Result Comment: This specimen has been REJECTED due to Laboratory criteria: Clotted. ED-ELVIN has been notified of need of recollection. 01/02/251947 Performed By: #### M 100.678, M100.2200, [id number] #### [facility] [address] [place], [address] MCH Normal 27.0-32.0 [facility] Comment on above: Result Comment: This specimen has been REJECTED due to Laboratory criteria: Clotted. ED-ELVIN has been notified of need of recollection. 01/02/251947 Performed By: #### M 100.678, M100.2200, [id number] #### [facility] [address] [place], [address] MCHC Normal 32-36 [facility] Comment on above: Result Comment: This specimen has been REJECTED due to Laboratory criteria: Clotted. ED-ELVIN has been notified of need of recollection. 01/02/251947 Performed By: #### M 100.678, M100.2200, [id number] #### [facility] [address] [place], [address] MCV Normal 81-99 [facility] Comment on above: Result Comment: This specimen has been REJECTED due to Laboratory criteria: Clotted. ED-ELVIN has been notified of need of recollection. 01/02/251947 Performed By: #### M 100.678, M100.2200, [id number] #### [facility] [address] [place], [address] NEUT% Normal 47-70 [facility] Comment on above: Result Comment: This specimen has been REJECTED due to Laboratory criteria: Clotted. ED-ELVIN has been notified of need of recollection. 01/02/251947 Performed By: #### M 100.678, M100.2200, [id number] #### [facility] [address] [place], [address] PLT Normal 150-450 [facility] Comment on above: Result Comment: This specimen has been REJECTED due to Laboratory criteria: Clotted. ED-ELVIN has been notified of need of recollection. 01/02/251947 Performed By: #### M 100.678, M100.2200, [id number] #### [facility] [address] [place], [address] RBC Normal 4.2-5.4 [facility] Comment on above: Result Comment: This specimen has been REJECTED due to Laboratory criteria: Clotted. ED-ELVIN has been notified of need of recollection. 01/02/251947 Performed By: #### M 100.678, M100.2200, [id number] #### [facility] [address] [place], [address] RDW CV Normal 11.6-14.6 [facility] Comment on above: Result Comment: This specimen has been REJECTED due to Laboratory criteria: Clotted. ED-ELVIN has been notified of need of recollection. 01/02/251947 Performed By: #### M 100.678, M100.2200, [id number] #### [facility] [address] [place], [address] RDW SD Normal 35.1-43.9 [facility] Comment on above: Result Comment: This specimen has been REJECTED due to Laboratory criteria: Clotted. ED-ELVIN has been notified of need of recollection. 01/02/251947 Performed By: #### M 100.678, M100.2200, [id number] #### [facility] [address] [place], [address] WBC Normal 4.4-11.0 [facility] Comment on above: Result Comment: This specimen has been REJECTED due to Laboratory criteria: Clotted. ED-ELVIN has been notified of need of recollection. 01/02/251947 Performed By: #### M 100.678, M100.2200, [id number] #### [facility] [address] [place], [address] Comprehensive Metabolic Prof ilon 01-02-2025 Albumin [Mass/Vol] 4.5 g/dL Normal 3.5-5.0 [facility] Comment on above: Performed By: #### M 100.678, M100.2200, [id number] #### [facility] [address] [place], [address] Albumin/Globulin [Mass ratio] 1.3 {ratio} Normal 0.9-2.4 [facility] Comment on above: Performed By: #### M 100.678, M100.2200, [id number] #### [facility] [address] [place], [address] ALK PHOS 69 U/L Normal 35-104 [facility] Comment on above: Performed By: #### M 100.678, M100.2200, [id number] #### [facility] [address] [place], [address] ALT [Catalytic activity/Vol] 50 U/L High <=34 [facility] Comment on above: Performed By: #### M 100.678, M100.2200, [id number] #### [facility] [address] [place], [address] AST [Catalytic activity/Vol] 28 U/L Normal <=31 [facility] Comment on above: Performed By: #### M 100.678, M100.2200, [id number] #### [facility] [address] [place], [address] Bilirubin [Mass/Vol] 0.96 mg/dL Normal 0.00-1.30 [facility] Comment on above: Performed By: #### M 100.678, M100.2200, [id number] #### [facility] [address] [place], [address] BUN/CRE 13.3 RATIO Normal 10-20 [facility] Comment on above: Performed By: #### M 100.678, M100.2200, [id number] #### [facility] [address] [place], [address] Calcium [Mass/Vol] 9.6 mg/dL Normal 7.6-11.0 [facility] Comment on above: Performed By: #### M 100.678, M100.2200, [id number] #### [facility] [address] [place], [address] Chloride [Moles/Vol] 102 mmol/L Normal 98-108 [facility] Comment on above: Performed By: #### M 100.678, M100.2200, [id number] #### [facility] [address] [place], [address] CO2 [Moles/Vol] 23.0 mmol/L Normal 21.0-32.0 [facility] Comment on above: Performed By: #### M 100.678, M100.2200, [id number] #### [facility] [address] [place], [address] Creatinine [Mass/Vol] 0.93 mg/dL Normal 0.70-1.20 [facility] Comment on above: Performed By: #### M 100.678, M100.2200, [id number] #### [facility] [address] [place], [address] ECRCL 94.15 ml/min Normal 50-250 [facility] Comment on above: Performed By: #### M 100.678, M100.2200, [id number] #### [facility] [address] [place], [address] GAP 13 Normal 5-15 [facility] Comment on above: Performed By: #### M 100.678, M100.2200, [id number] #### [facility] [address] [place], [address] GFR/1.73 sq M.predicted among non-blacks MDRD (S/P/Bld) [Vol rate/Area] 87 mL/min/{1.73_m2} Normal >60 [facility] Comment on above: Result Comment: mL/m in/1.73m2 CKD-EPI Creatinine Equation (2020) Performed By: #### M 100.678, M100.2200, [id number] #### [facility] [address] [place], [address] Globulin (S) [Mass/Vol] 3.4 g/dL Normal 2.2-4.2 [facility] Comment on above: Performed By: #### M 100.678, M100.2200, [id number] #### [facility] [address] [place], [address] Glucose [Mass/Vol] 109 mg/dL High 70-99 [facility] Comment on above: Performed By: #### M 100.678, M100.2200, [id number] #### [facility] [address] [place], [address] Potassium [Moles/Vol] 3.4 mmol/L Normal 3.3-5.1 [facility] Comment on above: Performed By: #### M 100.678, M100.2200, [id number] #### [facility] [address] [place], [address] Sodium [Moles/Vol] 138 mmol/L Normal 133-145 [facility] Comment on above: Performed By: #### M 100.678, M100.2200, [id number] #### [facility] [address] [place], [address] T PROT 7.9 g/dL Normal 5.9-8.4 [facility] Comment on above: Performed By: #### M 100.678, M100.2200, [id number] #### [facility] [address] [place], [address] Urea nitrogen [Mass/Vol] 12 mg/dL Normal 4-19 [facility] Comment on above: Performed By: #### M 100.678, M100.2200, [id number] #### [facility] [address] [place], [address] Emergency Department Summary on 01-02-2025 Emergency Department Summary [facility] Medical Records Department [address] [place] [address] Emergency Department Summary 01/02/25 MR#: [id number] Acct: [id number] Name: LUZ OLIVEIRA Rep #: [id number] : 2000 24 From: Mendez Gardner DO [...] States that she tried Azo at home. [facility] Medical History Lumbar radiculopathy, acute Acute lumbar myofascial strain Blunt abdominal trauma Chest wall contusion Cervical strain, acute Concussion without loss of consciousness Crushing injury of right great toe, initial encounter Congenital vwndfl-vapuqjt-sjmui reflux Home Medications ???Medication ???Instructions ???Recorded ???Last Taken ???Type uyanjnui-ivs-Ym-FA 1 mg 1 tab PO DAILY 08/09/22 [...] (cerebral vascular accident) Mother Diabetes Surgical History [place] teeth removed Social History household members: spouse [...] following commands knew that she was at [facility] years 2024 Skin:, No rashes or lesions [...] Respiratory Rat (more content not included)... Normal [facility] Lactic Acidon 01-02-2025 Lactate [Moles/Vol] 1.1 mmol/L Normal 0.0-2.0 [facility] Comment on above: Order Comment: Y Performed By: #### M 100.678, M100.2200, [id number] #### [facility] [address] [facility] [place], [place], [address] Lipaseon 01-02-2025 Lipase [Catalytic activity/Vol] 19 U/L Normal 13-75 [facility] Comment on above: Result Comment: Pletiny paez note: LIPASE revised reference range effective 23. New Lipase methodology. Expected to produce lower values than the previous assay method. NEW Reference Range: 13 - 75 U/L Performed By: #### M 100.678, M100.2200, [id number] #### [facility] [address] [facility] [place], [address] M100.678on 01-02-2025 M100.678 Pending SARS-CoV-2 (COVID 19) Negative INFLUENZA A Negative INFLUENZA B Negative RSV PCR Negative Normal [facility] Comment on above: Performed By: #### M 100.678, M100.2200, [id number] #### [facility] [address] [place], [address] Partial Thromboplast Timeon 01-02-2025 aPTT Coag (Bld) [Time] 33.7 s Normal 24.1-36.2 [facility] Comment on above: Performed By: #### M 100.678, M100.2200, [id number] #### [facility] [address] [place], [address] ,Serum,hCG Quali.on 01-02-2025 HCG, SERUM QUAL Negative Normal [facility] Comment on above: Performed By: #### M 100.678, M100.2200, [id number] #### [facility] [address] [place], [address] Prothrombin Time w/INRon INR Coag (PPP) [Relative time] 1.1 {INR} Normal [facility] Comment on above: Performed By: #### M 100.678, M100.2200, [id number] #### [facility] [address] [place], [address] PT Coag (PPP) [Time] 14.5 s Normal 11.7-14.9 [facility] Comment on above: Performed By: #### M 100.678, M100.2200, [id number] #### [facility] [address] [place], [address] Urinalysis, Completeon 01-02 EPI,SQUAMOUS 5-10 SEEN Normal 5-10 [facility] Comment on above: Order Comment: CLEAN CATCH Performed By: #### M 100.678, M100.2200, [id number] #### [facility] [address] [place], [address] BACTERIA 3+ /hpf Normal None Seen [facility] Comment on above: Order Comment: CLEAN CATCH Performed By: #### M 100.678, M100.2200, [id number] #### [facility] [address] [place], [address] RBC 5-10 SEEN Normal 0-5 [facility] Comment on above: Order Comment: CLEAN CATCH Performed By: #### M 100.678, M100.2200, [id number] #### [facility] [address] [place], [address] WBC >100 SEEN Normal 0-5 [facility] Comment on above: Order Comment: CLEAN CATCH Performed By: #### M 100.678, M100.2200, [id number] #### [facility] [address] [place], [address] Mucus Ql (Urine sed) 0 SEEN Normal [facility] Comment on above: Order Comment: CLEAN CATCH Performed By: #### M 100.678, M100.2200, [id number] #### [facility] [address] [place], [address] XR SPINE CERVICAL AP/LATon 0 02-19-2024 XR [...] 02/19/2024 1:39:46 AM Ordering Provider: KIRSTEN Miller [facility] ([place]) B12on 10-19-2023 Cobalamin (Vitamin B12) [Mass/Vol] 279 pg/mL Normal 211-911 [facility] ([place] Comment on above: Performed By: #### G FR, LIPID, HFP, A1C, IBC, TSH, CBC, ANEU, FT4, FERR, ADIFF, CMP, FE, VIDH, FT3 #### [address] [address] #### FOL, B12 #### [address] [address] FOLon 10-19-2023 Folate 8.29 ng/mL Normal 5.38-24.00 [facility] ([place]) Comment on above: Performed By: #### G FR, LIPID, HFP, A1C, IBC, TSH, CBC, ANEU, FT4, FERR, ADIFF, CMP, FE, VIDH, FT3 #### [address] [address] #### FOL, B12 #### [address] [address] .Auto Diffon 10-15-2023 Basophil, Absolute 0.0 10 3/mcL Normal 0.0-0.2 [facility]) Comment on above: Performed By: #### G FR, LIPID, HFP, A1C, IBC, TSH, CBC, ANEU, FT4, FERR, ADIFF, CMP, FE, VIDH, FT3 #### [address] [address] #### FOL, B12 #### [address] [address] Basophils/100 WBC (Bld) 0.2 % Normal 0.0-2.5 [facility] ([place] Comment on above: Performed By: #### G FR, LIPID, HFP, A1C, IBC, TSH, CBC, ANEU, FT4, FERR, ADIFF, CMP, FE, VIDH, FT3 #### [address] [address] #### FOL, B12 #### [address] [address] Eosinophil, Absolute 0.0 10 3/mcL Normal 0.0-0.4 [facility] ([place]) Comment on above: Performed By: #### G FR, LIPID, HFP, A1C, IBC, TSH, CBC, ANEU, FT4, FERR, ADIFF, CMP, FE, VIDH, FT3 #### [address] [address] #### FOL, B12 #### [address] [address] Eosinophils/100 WBC (Bld) 0.6 % Normal 0.0-7.0 [facility] ([place]) Comment on above: Performed By: #### G FR, LIPID, HFP, A1C, IBC, TSH, CBC, ANEU, FT4, FERR, ADIFF, CMP, FE, VIDH, FT3 #### [address] [address] #### FOL, B12 #### [address] [address] Lymphocyte, Absolute 1.5 10 3/mcL Normal 0.8-3.9 [facility] ([place] Comment on above: Performed By: #### G FR, LIPID, HFP, A1C, IBC, TSH, CBC, ANEU, FT4, FERR, ADIFF, CMP, FE, VIDH, FT3 #### [address] [address] #### FOL, B12 #### [address] [address] Lymphocytes/100 WBC (Bld) 23.2 % Normal 10.0-50.0 [facility] ([place]) Comment on above: Performed By: #### G FR, LIPID, HFP, A1C, IBC, TSH, CBC, ANEU, FT4, FERR, ADIFF, CMP, FE, VIDH, FT3 #### [address] [address] #### FOL, B12 #### [address] [address] Monocyte, Absolute 0.4 10 3/mcL Normal 0.2-1.0 [facility] ([place]) Comment on above: Performed By: #### G FR, LIPID, HFP, A1C, IBC, TSH, CBC, ANEU, FT4, FERR, ADIFF, CMP, FE, VIDH, FT3 #### [address] [address] #### FOL, B12 #### [address] [address] Monocytes/100 WBC (Bld) 5.6 % Normal 1.7-13.0 [facility] ([place]) Comment on above: Performed By: #### G FR, LIPID, HFP, A1C, IBC, TSH, CBC, ANEU, FT4, FERR, ADIFF, CMP, FE, VIDH, FT3 #### [address] [address] #### FOL, B12 #### [address] [address] Neutrophils/100 WBC (Bld) 70.4 % Normal 37.0-80.0 [facility] ([place] Comment on above: Performed By: #### G FR, LIPID, HFP, A1C, IBC, TSH, CBC, ANEU, FT4, FERR, ADIFF, CMP, FE, VIDH, FT3 #### [address] [address] #### FOL, B12 #### [address] [address] .GFRon 10-15-2023 GFR Non- 73 ml/min/1.73sqm Normal [facility] ([place]) Comment on above: Result Comment: GFR Population [...] FERR, ADIFF, CMP, FE, VIDH, FT3 #### [address] [address] #### FOL, B12 #### [address] [address] GFR 89 ml/min/1.73sqm Normal [facility] ([place]) Comment on above: Result Comment: GFR Population [...] FERR, ADIFF, CMP, FE, VIDH, FT3 #### [address] [address] #### FOL, B12 #### [address] [address] .NEUABSon 10-15-2023 Neutrophil, Absolute 4.5 10 3/mcL Normal 2.9-6.2 [facility] ([place]) Comment on above: Performed By: #### G FR, LIPID, HFP, A1C, IBC, TSH, CBC, ANEU, FT4, FERR, ADIFF, CMP, FE, VIDH, FT3 #### [address] [address] #### FOL, B12 #### [address] [address] A1Con 10-15-2023 HbA1c (Bld) [Mass fraction] 4.9 % Normal 4.3-6.4 [facility] ([place]) Comment on above: Performed By: #### G FR, LIPID, HFP, A1C, IBC, TSH, CBC, ANEU, FT4, FERR, ADIFF, CMP, FE, VIDH, FT3 #### [address] [address] #### FOL, B12 #### [place] [address] CBCon 10-15-2023 Erythrocyte distribution width (RBC) [Ratio] 14.1 % Normal 11.5-14.5 [facility] ([place]) Comment on above: Performed By: #### G FR, LIPID, HFP, A1C, IBC, TSH, CBC, ANEU, FT4, FERR, ADIFF, CMP, FE, VIDH, FT3 #### [address] [address] #### FOL, B12 #### [address] [address] Hematocrit (Bld) [Volume fraction] 42.4 % Normal 37.0-47.0 [facility] ([place]) Comment on above: Performed By: #### G FR, LIPID, HFP, A1C, IBC, TSH, CBC, ANEU, FT4, FERR, ADIFF, CMP, FE, VIDH, FT3 #### [address] [address] #### FOL, B12 #### [address] [address] Hgb 14.5 G/dL Normal 12.0-16.0 [facility] ([place]) Comment on above: Performed By: #### G FR, LIPID, HFP, A1C, IBC, TSH, CBC, ANEU, FT4, FERR, ADIFF, CMP, FE, VIDH, FT3 #### [address] [address] #### FOL, B12 #### [address] [address] MCH (RBC) [Entitic mass] 30.8 pg Normal 27.0-31.2 [facility] ([place] Comment on above: Performed By: #### G FR, LIPID, HFP, A1C, IBC, TSH, CBC, ANEU, FT4, FERR, ADIFF, CMP, FE, VIDH, FT3 #### [address] [address] #### FOL, B12 #### [address] [address] MCHC 34.2 G/dL Normal 33.0-37.0 [facility] ([place] Comment on above: Performed By: #### G FR, LIPID, HFP, A1C, IBC, TSH, CBC, ANEU, FT4, FERR, ADIFF, CMP, FE, VIDH, FT3 #### [address] [address] #### FOL, B12 #### [address] [address] MCV (RBC) [Entitic vol] 90.3 fL Normal 80.0-94.0 [facility] ([place]) Comment on above: Performed By: #### G FR, LIPID, HFP, A1C, IBC, TSH, CBC, ANEU, FT4, FERR, ADIFF, CMP, FE, VIDH, FT3 #### [address] [address] #### FOL, B12 #### [address] [address] Platelet 237 10 3/mcL Normal 130-400 [facility] ([place]) Comment on above: Performed By: #### G FR, LIPID, HFP, A1C, IBC, TSH, CBC, ANEU, FT4, FERR, ADIFF, CMP, FE, VIDH, FT3 #### [address] [address] #### FOL, B12 #### [address] [address] Platelet mean volume (Bld) [Entitic vol] 8.6 fL Normal 7.4-10.4 [facility] ([place]) Comment on above: Performed By: #### G FR, LIPID, HFP, A1C, IBC, TSH, CBC, ANEU, FT4, FERR, ADIFF, CMP, FE, VIDH, FT3 #### [address] [address] #### FOL, B12 #### [address] [address] RBC 4.69 10 6/mcL Normal 4.20-5.40 [facility] ([place]) Comment on above: Performed By: #### G FR, LIPID, HFP, A1C, IBC, TSH, CBC, ANEU, FT4, FERR, ADIFF, CMP, FE, VIDH, FT3 #### [address] [address] #### FOL, B12 #### [place] [address] WBC 6.4 10 3/mcL Normal 4.6-10.8 [facility] ([place]) Comment on above: Performed By: #### G FR, LIPID, HFP, A1C, IBC, TSH, CBC, ANEU, FT4, FERR, ADIFF, CMP, FE, VIDH, FT3 #### [address] [address] #### FOL, B12 #### [address] [address] CMPon 10-15-2023 BUN/Creatinine Ratio 17 ratio Normal 7-27 [facility] ([place]) Comment on above: Performed By: #### G FR, LIPID, HFP, A1C, IBC, TSH, CBC, ANEU, FT4, FERR, ADIFF, CMP, FE, VIDH, FT3 #### [address] [address] #### FOL, B12 #### [address] [address] Calcium [Mass/Vol] 9.5 mg/dL Normal 8.4-10.2 [facility] ([place]) Comment on above: Performed By: #### G FR, LIPID, HFP, A1C, IBC, TSH, CBC, ANEU, FT4, FERR, ADIFF, CMP, FE, VIDH, FT3 #### [address] [address] #### FOL, B12 #### [address] [address] Chloride [Moles/Vol] 101 mmol/L Normal 98-107 [facility] ([place]) Comment on above: Performed By: #### G FR, LIPID, HFP, A1C, IBC, TSH, CBC, ANEU, FT4, FERR, ADIFF, CMP, FE, VIDH, FT3 #### [address] [address] #### FOL, B12 #### [address] [address] CO2 [Moles/Vol] 27 mmol/L Normal 22-29 [facility] ([place]) Comment on above: Performed By: #### G FR, LIPID, HFP, A1C, IBC, TSH, CBC, ANEU, FT4, FERR, ADIFF, CMP, FE, VIDH, FT3 #### [address] [address] #### FOL, B12 #### [address] [address] Creatinine [Mass/Vol] 0.94 mg/dL Normal 0.55-1.02 [facility] ([place]) Comment on above: Performed By: #### G FR, LIPID, HFP, A1C, IBC, TSH, CBC, ANEU, FT4, FERR, ADIFF, CMP, FE, VIDH, FT3 #### [address] [address] #### FOL, B12 #### [address] [address] Electrolyte Balance 13.0 mEq/L Normal 4.0-15.0 [facility] ([place]) Comment on above: Performed By: #### G FR, LIPID, HFP, A1C, IBC, TSH, CBC, ANEU, FT4, FERR, ADIFF, CMP, FE, VIDH, FT3 #### [address] [address] #### FOL, B12 #### [address] [address] Glucose [Mass/Vol] 92 mg/dL Normal 70-105 [facility] ([place]) Comment on above: Performed By: #### G FR, LIPID, HFP, A1C, IBC, TSH, CBC, ANEU, FT4, FERR, ADIFF, CMP, FE, VIDH, FT3 #### [address] [address] #### FOL, B12 #### [address] [address] Potassium [Moles/Vol] 4.2 mmol/L Normal 3.5-5.1 [facility] ([place]) Comment on above: Performed By: #### G FR, LIPID, HFP, A1C, IBC, TSH, CBC, ANEU, FT4, FERR, ADIFF, CMP, FE, VIDH, FT3 #### [address] [address] #### FOL, B12 #### [address] [address] Sodium [Moles/Vol] 141 mmol/L Normal 136-145 [facility] ([place]) Comment on above: Performed By: #### G FR, LIPID, HFP, A1C, IBC, TSH, CBC, ANEU, FT4, FERR, ADIFF, CMP, FE, VIDH, FT3 #### [address] [address] #### FOL, B12 #### [address] [address] Urea nitrogen [Mass/Vol] 16 mg/dL Normal 7-18 [facility] ([place]) Comment on above: Performed By: #### G FR, LIPID, HFP, A1C, IBC, TSH, CBC, ANEU, FT4, FERR, ADIFF, CMP, FE, VIDH, FT3 #### [address] [address] #### FOL, B12 #### [address] [address] FEon 10-15-2023 Iron [Mass/Vol] 141 ug/dL Normal 50-170 [facility] ([place]) Comment on above: Performed By: #### G FR, LIPID, HFP, A1C, IBC, TSH, CBC, ANEU, FT4, FERR, ADIFF, CMP, FE, VIDH, FT3 #### [address] [address] #### FOL, B12 #### [address] [address] Heidi 10-15-2023 Ferritin [Mass/Vol] 60.0 ng/mL Normal 8.0-252.0 [facility] ([place]) Comment on above: Performed By: #### G FR, LIPID, HFP, A1C, IBC, TSH, CBC, ANEU, FT4, FERR, ADIFF, CMP, FE, VIDH, FT3 #### [address] [address] #### FOL, B12 #### [address] [address] FT3on 10-15-2023 Free T3 [Mass/Vol] 3.26 pg/mL Normal 2.30-4.00 [facility] ([place]) Comment on above: Performed By: #### G FR, LIPID, HFP, A1C, IBC, TSH, CBC, ANEU, FT4, FERR, ADIFF, CMP, FE, VIDH, FT3 #### [address] [address] #### FOL, B12 #### [address] [address] FT4on 10-15-2023 Free T4 [Mass/Vol] 1.15 ng/dL Normal 0.76-1.46 [facility] ([place]) Comment on above: Performed By: #### G FR, LIPID, HFP, A1C, IBC, TSH, CBC, ANEU, FT4, FERR, ADIFF, CMP, FE, VIDH, FT3 #### [address] [address] #### FOL, B12 #### [address] [address] HFPon 10-15-2023 Bili Indirect 0.4 mg/dL Normal [facility] ([place]) Comment on above: Performed By: #### G FR, LIPID, HFP, A1C, IBC, TSH, CBC, ANEU, FT4, FERR, ADIFF, CMP, FE, VIDH, FT3 #### [address] [address] #### FOL, B12 #### [address] [address] Albumin Level 4.0 G/dL Normal 3.5-5.0 [facility] ([place]) Comment on above: Performed By: #### G FR, LIPID, HFP, A1C, IBC, TSH, CBC, ANEU, FT4, FERR, ADIFF, CMP, FE, VIDH, FT3 #### [address] [address] #### FOL, B12 #### [address] [address] Albumin/Globulin [Mass ratio] 1.1 {ratio} Normal 1.1-2.5 [facility] ([place]) Comment on above: Performed By: #### G FR, LIPID, HFP, A1C, IBC, TSH, CBC, ANEU, FT4, FERR, ADIFF, CMP, FE, VIDH, FT3 #### [address] [address] #### FOL, B12 #### [address] [address] ALP [Catalytic activity/Vol] 91 U/L Normal 40-135 [facility] ([place]) Comment on above: Performed By: #### G FR, LIPID, HFP, A1C, IBC, TSH, CBC, ANEU, FT4, FERR, ADIFF, CMP, FE, VIDH, FT3 #### [address] [address] #### FOL, B12 #### [address] [address] ALT [Catalytic activity/Vol] 25 U/L Normal 14-59 [facility] ([place]) Comment on above: Performed By: #### G FR, LIPID, HFP, A1C, IBC, TSH, CBC, ANEU, FT4, FERR, ADIFF, CMP, FE, VIDH, FT3 #### [address] [address] #### FOL, B12 #### [address] [id number] AST [Catalytic activity/Vol] 15 U/L Normal 10-40 [facility] ([place]) Comment on above: Performed By: #### G FR, LIPID, HFP, A1C, IBC, TSH, CBC, ANEU, FT4, FERR, ADIFF, CMP, FE, VIDH, FT3 #### [address] [id number] #### FOL, B12 #### [place] [id number] Bili Direct 0.2 mg/dL Normal 0.0-0.2 [facility] ([place]) Comment on above: Result Comment: Use of this assay is not recommended for patients undergoing treatment with eltrombopag due to the potential for falsely elevated results. Performed By: #### G FR, LIPID, HFP, A1C, IBC, TSH, CBC, ANEU, FT4, FERR, ADIFF, CMP, FE, VIDH, FT3 #### [address] [id number] #### FOL, B12 #### [place] [id number] Bili Total 0.6 mg/dL Normal 0.2-1.0 [facility] ([place]) Comment on above: Result Comment: Use of this assay is not recommended for patients undergoing treatment with eltrombopag due to the potential for falsely elevated results. Performed By: #### G FR, LIPID, HFP, A1C, IBC, TSH, CBC, ANEU, FT4, FERR, ADIFF, CMP, FE, VIDH, FT3 #### [address] [address] #### FOL, B12 #### [address] [address] Globulin 3.7 G/dL Normal [facility] ([place]) Comment on above: Performed By: #### G FR, LIPID, HFP, A1C, IBC, TSH, CBC, ANEU, FT4, FERR, ADIFF, CMP, FE, VIDH, FT3 #### [address] [address] #### FOL, B12 #### [place] [address] Total Protein 7.7 G/dL Normal 6.4-8.2 [facility] ([place]) Comment on above: Performed By: #### G FR, LIPID, HFP, A1C, IBC, TSH, CBC, ANEU, FT4, FERR, ADIFF, CMP, FE, VIDH, FT3 #### [address] [address] #### FOL, B12 #### [place] [address] IBCon 10-15-2023 TIBC 330 mcg/dL Normal 250-450 [facility] ([place]) Comment on above: Performed By: #### G FR, LIPID, HFP, A1C, IBC, TSH, CBC, ANEU, FT4, FERR, ADIFF, CMP, FE, VIDH, FT3 #### [address] [address] #### FOL, B12 #### [place] [id number] LABORATORYOrdered By: SYSTEM SYSTEM on 10-15-2023 25-hydroxyvitamin [...] 10-15-2023 Cholesterol [Mass/Vol] 172 mg/dL Normal 0-200 [facility] ([place]) Comment on above: Result Comment: Chol esterol Reference Interval: Less than 200 Desirable 200-239 Borderline high risk 240 and above High risk Performed By: #### G FR, LIPID, HFP, A1C, IBC, TSH, CBC, ANEU, FT4, FERR, ADIFF, CMP, FE, VIDH, FT3 #### [address] [address] #### FOL, B12 #### [address] [address] Cholesterol in HDL [Mass/Vol] 66 mg/dL High 40-60 [facility] ([place]) Comment on above: Performed By: #### G FR, LIPID, HFP, A1C, IBC, TSH, CBC, ANEU, FT4, FERR, ADIFF, CMP, FE, VIDH, FT3 #### [address] [address] #### FOL, B12 #### [address] [address] Cholesterol in LDL [Mass/Vol] 80 mg/dL Normal 0-130 [facility] ([place]) Comment on above: Performed By: #### G FR, LIPID, HFP, A1C, IBC, TSH, CBC, ANEU, FT4, FERR, ADIFF, CMP, FE, VIDH, FT3 #### [address] [address] #### FOL, B12 #### [address] [address] Triglyceride [Mass/Vol] 132 mg/dL Normal 0-150 [facility] ([place]) Comment on above: Result Comment: Trig lyceride Reference Interval: Less than 150 Normal 150-199 Borderline high risk 200-499 High risk 500 or higher Very high risk Performed By: #### G FR, LIPID, HFP, A1C, IBC, TSH, CBC, ANEU, FT4, FERR, ADIFF, CMP, FE, VIDH, FT3 #### [address] [address] #### FOL, B12 #### [address] [address] Laboratory - Chemistry and C hemistry - [...] 10-15-2023 TSH Qn 1.13 m[IU]/L Normal 0.36-3.74 [facility] ([place]) Comment on above: Performed By: #### G FR, LIPID, HFP, A1C, IBC, TSH, CBC, ANEU, FT4, FERR, ADIFF, CMP, FE, VIDH, FT3 #### [address] [address] #### FOL, B12 #### [place] [address] UDRUGon 10-15-2023 Amphetamine (u) Negative Normal Negative [facility] ([place]) Comment on above: Performed By: #### G FR, LIPID, HFP, A1C, IBC, TSH, CBC, ANEU, FT4, FERR, ADIFF, CMP, FE, VIDH, FT3 #### [address] [address] #### FOL, B12 #### [place] [address] Barbiturate (u) Negative Normal Negative [facility] ([place]) Comment on above: Performed By: #### G FR, LIPID, HFP, A1C, IBC, TSH, CBC, ANEU, FT4, FERR, ADIFF, CMP, FE, VIDH, FT3 #### [address] [address] #### FOL, B12 #### [place] [address] Benzodiazepine (u) Negative Normal Negative [facility] ([place]) Comment on above: Performed By: #### G FR, LIPID, HFP, A1C, IBC, TSH, CBC, ANEU, FT4, FERR, ADIFF, CMP, FE, VIDH, FT3 #### [address] [address] #### FOL, B12 #### [place] [address] Cannabinoid (u) Negative Normal Negative [facility] ([place]) Comment on above: Performed By: #### G FR, LIPID, HFP, A1C, IBC, TSH, CBC, ANEU, FT4, FERR, ADIFF, CMP, FE, VIDH, FT3 #### [address] [address] #### FOL, B12 #### [place] [address] Cocaine Ql (U) Negative Normal Negative [facility] ([place]) Comment on above: Performed By: #### G FR, LIPID, HFP, A1C, IBC, TSH, CBC, ANEU, FT4, FERR, ADIFF, CMP, FE, VIDH, FT3 #### [address] [address] #### FOL, B12 #### [place] [address] Methadone Ql (U) Negative Normal Negative [facility] ([place]) Comment on above: Performed By: #### G FR, LIPID, HFP, A1C, IBC, TSH, CBC, ANEU, FT4, FERR, ADIFF, CMP, FE, VIDH, FT3 #### [address] [address] #### FOL, B12 #### [place] [address] Opiate (u) Negative Normal Negative [facility] ([place]) Comment on above: Performed By: #### G FR, LIPID, HFP, A1C, IBC, TSH, CBC, ANEU, FT4, FERR, ADIFF, CMP, FE, VIDH, FT3 #### [address] [address] #### FOL, B12 #### [place] [address] PCP (u) Negative Normal Negative [facility] ([place]) Comment on above: Performed By: #### G FR, LIPID, HFP, A1C, IBC, TSH, CBC, ANEU, FT4, FERR, ADIFF, CMP, FE, VIDH, FT3 #### [address] [address] #### FOL, B12 #### [place] [address] Urine Drugs screened: See Below Normal [facility] ([place]) Comment on above: Result Comment: This drug [...] FERR, ADIFF, CMP, FE, VIDH, FT3 #### [address] [address] #### FOL, B12 #### [place] [address] VIDHon 10-15-2023 Vit. D 25-Hydroxy 12.2 ng/mL Normal [facility] ([place]) Comment on above: Result Comment: Inte rpretive Values Based on Total 25(OH) Vitamin D: Deficient <20 ng/mL Insufficient 20 - <30 ng/mL Sufficient 30-100 ng/mL Performed By: #### G FR, LIPID, HFP, A1C, IBC, TSH, CBC, ANEU, FT4, FERR, ADIFF, CMP, FE, VIDH, FT3 #### [address] [address] #### FOL, B12 #### [address] [address] .Auto Diffon 03-31-2023 Basophil, Absolute 0.0 10 3/mcL Normal 0.0-0.2 [facility] ([place]) Comment on above: Performed By: #### G FR, LIPID, HFP, A1C, IBC, TSH, CBC, ANEU, FT4, FERR, ADIFF, CMP, FE, VIDH, FT3 #### [address] [address] #### FOL, B12 #### [address] [address] Basophils/100 WBC (Bld) 0.1 % Normal 0.0-2.5 [facility] ([place]) Comment on above: Performed By: #### G FR, LIPID, HFP, A1C, IBC, TSH, CBC, ANEU, FT4, FERR, ADIFF, CMP, FE, VIDH, FT3 #### [address] [address] #### FOL, B12 #### [address] [address] Eosinophil, Absolute 0.0 10 3/mcL Normal 0.0-0.4 [facility] ([place]) Comment on above: Performed By: #### G FR, LIPID, HFP, A1C, IBC, TSH, CBC, ANEU, FT4, FERR, ADIFF, CMP, FE, VIDH, FT3 #### [address] [address] #### FOL, B12 #### [address] [address] Eosinophils/100 WBC (Bld) 0.0 % Normal 0.0-7.0 [facility] ([place]) Comment on above: Performed By: #### G FR, LIPID, HFP, A1C, IBC, TSH, CBC, ANEU, FT4, FERR, ADIFF, CMP, FE, VIDH, FT3 #### [address] [address] #### FOL, B12 #### [address] [address] Lymphocyte, Absolute 1.2 10 3/mcL Normal 0.8-3.9 [facility] ([place]) Comment on above: Performed By: #### G FR, LIPID, HFP, A1C, IBC, TSH, CBC, ANEU, FT4, FERR, ADIFF, CMP, FE, VIDH, FT3 #### [address] [address] #### FOL, B12 #### [address] [address] Lymphocytes/100 WBC (Bld) 11.4 % Normal 10.0-50.0 [facility] ([place]) Comment on above: Performed By: #### G FR, LIPID, HFP, A1C, IBC, TSH, CBC, ANEU, FT4, FERR, ADIFF, CMP, FE, VIDH, FT3 #### [address] [address] #### FOL, B12 #### [address] [address] Monocyte, Absolute 0.8 10 3/mcL Normal 0.2-1.0 [facility] ([place]) Comment on above: Performed By: #### G FR, LIPID, HFP, A1C, IBC, TSH, CBC, ANEU, FT4, FERR, ADIFF, CMP, FE, VIDH, FT3 #### [address] [address] #### FOL, B12 #### [address] [address] Monocytes/100 WBC (Bld) 7.6 % Normal 1.7-13.0 [facility] ([place]) Comment on above: Performed By: #### G FR, LIPID, HFP, A1C, IBC, TSH, CBC, ANEU, FT4, FERR, ADIFF, CMP, FE, VIDH, FT3 #### [address] [address] #### FOL, B12 #### [address] [address] Neutrophils/100 WBC (Bld) 80.9 % High 37.0-80.0 [facility] ([place]) Comment on above: Performed By: #### G FR, LIPID, HFP, A1C, IBC, TSH, CBC, ANEU, FT4, FERR, ADIFF, CMP, FE, VIDH, FT3 #### [address] [address] #### FOL, B12 #### [address] [address] .NEUABSon 03-31-2023 Neutrophil, Absolute 8.8 10 3/mcL High 2.9-6.2 [facility] ([place]) Comment on above: Performed By: #### G FR, LIPID, HFP, A1C, IBC, TSH, CBC, ANEU, FT4, FERR, ADIFF, CMP, FE, VIDH, FT3 #### [address] [address] #### FOL, B12 #### [address] [address] CBCon 03-31-2023 Erythrocyte distribution width (RBC) [Ratio] 13.9 % Normal 11.5-14.5 [facility] ([place]) Comment on above: Performed By: #### G FR, LIPID, HFP, A1C, IBC, TSH, CBC, ANEU, FT4, FERR, ADIFF, CMP, FE, VIDH, FT3 #### [address] [address] #### FOL, B12 #### [address] [address] Hematocrit (Bld) [Volume fraction] 33.1 % Low 37.0-47.0 [facility] ([place]) Comment on above: Performed By: #### G FR, LIPID, HFP, A1C, IBC, TSH, CBC, ANEU, FT4, FERR, ADIFF, CMP, FE, VIDH, FT3 #### [address] [address] #### FOL, B12 #### [address] [address] Hgb 11.5 G/dL Low 12.0-16.0 [facility] ([place]) Comment on above: Performed By: #### G FR, LIPID, HFP, A1C, IBC, TSH, CBC, ANEU, FT4, FERR, ADIFF, CMP, FE, VIDH, FT3 #### [address] [address] #### FOL, B12 #### [address] [address] MCH (RBC) [Entitic mass] 32.3 pg High 27.0-31.2 [facility] ([place]) Comment on above: Performed By: #### G FR, LIPID, HFP, A1C, IBC, TSH, CBC, ANEU, FT4, FERR, ADIFF, CMP, FE, VIDH, FT3 #### [address] [address] #### FOL, B12 #### [address] [address] MCHC 34.7 G/dL Normal 33.0-37.0 [facility] ([place]) Comment on above: Performed By: #### G FR, LIPID, HFP, A1C, IBC, TSH, CBC, ANEU, FT4, FERR, ADIFF, CMP, FE, VIDH, FT3 #### [address] [address] #### FOL, B12 #### [address] [address] MCV (RBC) [Entitic vol] 93.0 fL Normal 80.0-94.0 [facility] ([place]) Comment on above: Performed By: #### G FR, LIPID, HFP, A1C, IBC, TSH, CBC, ANEU, FT4, FERR, ADIFF, CMP, FE, VIDH, FT3 #### [address] [address] #### FOL, B12 #### [address] [address] Platelet 155 10 3/mcL Normal 130-400 [facility] ([place]) Comment on above: Performed By: #### G FR, LIPID, HFP, A1C, IBC, TSH, CBC, ANEU, FT4, FERR, ADIFF, CMP, FE, VIDH, FT3 #### [address] [address] #### FOL, B12 #### [address] [address] Platelet mean volume (Bld) [Entitic vol] 9.3 fL Normal 7.4-10.4 [facility] ([place]) Comment on above: Performed By: #### G FR, LIPID, HFP, A1C, IBC, TSH, CBC, ANEU, FT4, FERR, ADIFF, CMP, FE, VIDH, FT3 #### [address] [address] #### FOL, B12 #### [address] [address] RBC 3.55 10 6/mcL Low 4.20-5.40 [facility] ([place]) Comment on above: Performed By: #### G FR, LIPID, HFP, A1C, IBC, TSH, CBC, ANEU, FT4, FERR, ADIFF, CMP, FE, VIDH, FT3 #### [address] [address] #### FOL, B12 #### [address] [address] WBC 10.9 10 3/mcL High 4.6-10.8 [facility] ([place]) Comment on above: Performed By: #### G FR, LIPID, HFP, A1C, IBC, TSH, CBC, ANEU, FT4, FERR, ADIFF, CMP, FE, VIDH, FT3 #### [address] [address] #### FOL, B12 #### [place] [address] LABORATORYOrdered By: Billie Ibarra on 03-31-2023 Basophil, [...] Ab RPR Ql (S) Non-Reactive Normal Non-Reactive [facility] ([place]) Comment on above: Result Comment: The RPR [...] FERR, ADIFF, CMP, FE, VIDH, FT3 #### [address] [address] #### FOL, B12 #### [address] [address] .Auto Diffon 03-30-2023 Basophil, Absolute 0.0 10 3/mcL Normal 0.0-0.2 [facility] ([place]) Comment on above: Performed By: #### G FR, LIPID, HFP, A1C, IBC, TSH, CBC, ANEU, FT4, FERR, ADIFF, CMP, FE, VIDH, FT3 #### [address] [address] #### FOL, B12 #### [address] [address] Basophils/100 WBC (Bld) 0.1 % Normal 0.0-2.5 [facility] ([place]) Comment on above: Performed By: #### G FR, LIPID, HFP, A1C, IBC, TSH, CBC, ANEU, FT4, FERR, ADIFF, CMP, FE, VIDH, FT3 #### [address] [address] #### FOL, B12 #### [address] [address] Eosinophil, Absolute 0.0 10 3/mcL Normal 0.0-0.4 [facility] ([place]) Comment on above: Performed By: #### G FR, LIPID, HFP, A1C, IBC, TSH, CBC, ANEU, FT4, FERR, ADIFF, CMP, FE, VIDH, FT3 #### [address] [address] #### FOL, B12 #### [address] [address] Eosinophils/100 WBC (Bld) 0.2 % Normal 0.0-7.0 [facility] ([place]) Comment on above: Performed By: #### G FR, LIPID, HFP, A1C, IBC, TSH, CBC, ANEU, FT4, FERR, ADIFF, CMP, FE, VIDH, FT3 #### [address] [address] #### FOL, B12 #### [address] [address] Lymphocyte, Absolute 1.8 10 3/mcL Normal 0.8-3.9 [facility] ([place]) Comment on above: Performed By: #### G FR, LIPID, HFP, A1C, IBC, TSH, CBC, ANEU, FT4, FERR, ADIFF, CMP, FE, VIDH, FT3 #### [address] [address] #### FOL, B12 #### [address] [address] Lymphocytes/100 WBC (Bld) 16.8 % Normal 10.0-50.0 [facility] ([place]) Comment on above: Performed By: #### G FR, LIPID, HFP, A1C, IBC, TSH, CBC, ANEU, FT4, FERR, ADIFF, CMP, FE, VIDH, FT3 #### [address] [address] #### FOL, B12 #### [address] [address] Monocyte, Absolute 0.8 10 3/mcL Normal 0.2-1.0 [facility] ([place]) Comment on above: Performed By: #### G FR, LIPID, HFP, A1C, IBC, TSH, CBC, ANEU, FT4, FERR, ADIFF, CMP, FE, VIDH, FT3 #### [address] [address] #### FOL, B12 #### [address] [address] Monocytes/100 WBC (Bld) 7.2 % Normal 1.7-13.0 [facility] ([place]) Comment on above: Performed By: #### G FR, LIPID, HFP, A1C, IBC, TSH, CBC, ANEU, FT4, FERR, ADIFF, CMP, FE, VIDH, FT3 #### [address] [address] #### FOL, B12 #### [address] [address] Neutrophils/100 WBC (Bld) 75.7 % Normal 37.0-80.0 [facility] ([place]) Comment on above: Performed By: #### G FR, LIPID, HFP, A1C, IBC, TSH, CBC, ANEU, FT4, FERR, ADIFF, CMP, FE, VIDH, FT3 #### [address] [address] #### FOL, B12 #### [address] [address] .NEUABSon 03-30-2023 Neutrophil, Absolute 8.2 10 3/mcL High 2.9-6.2 [facility] ([place]) Comment on above: Performed By: #### G FR, LIPID, HFP, A1C, IBC, TSH, CBC, ANEU, FT4, FERR, ADIFF, CMP, FE, VIDH, FT3 #### [address] [address] #### FOL, B12 #### [address] [address] CBCon 03-30-2023 Erythrocyte distribution width (RBC) [Ratio] 13.8 % Normal 11.5-14.5 [facility] ([place]) Comment on above: Performed By: #### G FR, LIPID, HFP, A1C, IBC, TSH, CBC, ANEU, FT4, FERR, ADIFF, CMP, FE, VIDH, FT3 #### [address] [address] #### FOL, B12 #### [address] [address] Hematocrit (Bld) [Volume fraction] 37.2 % Normal 37.0-47.0 [facility] ([place]) Comment on above: Performed By: #### G FR, LIPID, HFP, A1C, IBC, TSH, CBC, ANEU, FT4, FERR, ADIFF, CMP, FE, VIDH, FT3 #### [address] [address] #### FOL, B12 #### [address] [address] Hgb 12.9 G/dL Normal 12.0-16.0 [facility] ([place]) Comment on above: Performed By: #### G FR, LIPID, HFP, A1C, IBC, TSH, CBC, ANEU, FT4, FERR, ADIFF, CMP, FE, VIDH, FT3 #### [address] [address] #### FOL, B12 #### [address] [address] MCH (RBC) [Entitic mass] 32.2 pg High 27.0-31.2 [facility] ([place]) Comment on above: Performed By: #### G FR, LIPID, HFP, A1C, IBC, TSH, CBC, ANEU, FT4, FERR, ADIFF, CMP, FE, VIDH, FT3 #### [address] [address] #### FOL, B12 #### [address] [address] MCHC 34.7 G/dL Normal 33.0-37.0 [facility] ([place]) Comment on above: Performed By: #### G FR, LIPID, HFP, A1C, IBC, TSH, CBC, ANEU, FT4, FERR, ADIFF, CMP, FE, VIDH, FT3 #### [address] [address] #### FOL, B12 #### [place] [address] MCV (RBC) [Entitic vol] 92.8 fL Normal 80.0-94.0 [facility] ([place]) Comment on above: Performed By: #### G FR, LIPID, HFP, A1C, IBC, TSH, CBC, ANEU, FT4, FERR, ADIFF, CMP, FE, VIDH, FT3 #### [place] [address] #### FOL, B12 #### [place] [address] Platelet 169 10 3/mcL Normal 130-400 [facility] ([place]) Comment on above: Performed By: #### G FR, LIPID, HFP, A1C, IBC, TSH, CBC, ANEU, FT4, FERR, ADIFF, CMP, FE, VIDH, FT3 #### [place] [address] #### FOL, B12 #### [address] [address] Platelet mean volume (Bld) [Entitic vol] 9.7 fL Normal 7.4-10.4 [facility] ([place]) Comment on above: Performed By: #### G FR, LIPID, HFP, A1C, IBC, TSH, CBC, ANEU, FT4, FERR, ADIFF, CMP, FE, VIDH, FT3 #### [place] [address] #### FOL, B12 #### [address] [address] RBC 4.01 10 6/mcL Low 4.20-5.40 [facility] ([place]) Comment on above: Performed By: #### G FR, LIPID, HFP, A1C, IBC, TSH, CBC, ANEU, FT4, FERR, ADIFF, CMP, FE, VIDH, FT3 #### [address] [address] #### FOL, B12 #### [place] [address] WBC 10.8 10 3/mcL Normal 4.6-10.8 [facility] ([place]) Comment on above: Performed By: #### G FR, LIPID, HFP, A1C, IBC, TSH, CBC, ANEU, FT4, FERR, ADIFF, CMP, FE, VIDH, FT3 #### [address] [address] #### FOL, B12 #### [place] [address] Gel ABOon 03-30-2023 ABO/Rh Interp Positive Invalid Interpretation Code [facility] ([place]) Comment on above: Performed By: #### G FR, LIPID, HFP, A1C, IBC, TSH, CBC, ANEU, FT4, FERR, ADIFF, CMP, FE, VIDH, FT3 #### [address] [address] #### FOL, B12 #### [place] [address] Gel ABSon 03-30-2023 Antibody Screen Gel Negative Normal [facility] ([place]) Comment on above: Performed By: #### G FR, LIPID, HFP, A1C, IBC, TSH, CBC, ANEU, FT4, FERR, ADIFF, CMP, FE, VIDH, FT3 #### [address] [address] #### FOL, B12 #### [place] [address] LABORATORYOrdered By: Lilia Espinoza on 03-30-2023 ABO/Rh [...] Strep (PCR) Negative Normal Negative [facility] ([place]) Comment on above: Performed By: #### G BSPCR #### [address] [address] Group B Strep PCR Int Normal [facility] ([place]) Comment on above: Result Comment: Grou p [...] Below Performed By: #### G BSPCR #### [address] [address] RPRon 03-10-2023 Reagin Ab RPR Ql (S) Non-Reactive Normal Non-Reactive [facility] ([place]) Comment on above: Result Comment: The RPR [...] FERR, ADIFF, CMP, FE, VIDH, FT3 #### [address] [address] #### FOL, B12 #### [address] [address] .Auto Diffon 03-09-2023 Basophil, Absolute 0.0 10 3/mcL Normal 0.0-0.2 [facility] ([place]) Comment on above: Performed By: #### G FR, LIPID, HFP, A1C, IBC, TSH, CBC, ANEU, FT4, FERR, ADIFF, CMP, FE, VIDH, FT3 #### [address] [address] #### FOL, B12 #### [address] [address] Basophils/100 WBC (Bld) 0.2 % Normal 0.0-2.5 [facility] ([place]) Comment on above: Performed By: #### G FR, LIPID, HFP, A1C, IBC, TSH, CBC, ANEU, FT4, FERR, ADIFF, CMP, FE, VIDH, FT3 #### [address] [address] #### FOL, B12 #### [address] [address] Eosinophil, Absolute 0.0 10 3/mcL Normal 0.0-0.4 [facility] ([place]) Comment on above: Performed By: #### G FR, LIPID, HFP, A1C, IBC, TSH, CBC, ANEU, FT4, FERR, ADIFF, CMP, FE, VIDH, FT3 #### [address] [address] #### FOL, B12 #### [address] [address] Eosinophils/100 WBC (Bld) 0.3 % Normal 0.0-7.0 [facility] ([place]) Comment on above: Performed By: #### G FR, LIPID, HFP, A1C, IBC, TSH, CBC, ANEU, FT4, FERR, ADIFF, CMP, FE, VIDH, FT3 #### [address] [address] #### FOL, B12 #### [address] [address] Lymphocyte, Absolute 1.5 10 3/mcL Normal 0.8-3.9 [facility] ([place]) Comment on above: Performed By: #### G FR, LIPID, HFP, A1C, IBC, TSH, CBC, ANEU, FT4, FERR, ADIFF, CMP, FE, VIDH, FT3 #### [address] [address] #### FOL, B12 #### [address] [address] Lymphocytes/100 WBC (Bld) 15.8 % Normal 10.0-50.0 [facility] ([place]) Comment on above: Performed By: #### G FR, LIPID, HFP, A1C, IBC, TSH, CBC, ANEU, FT4, FERR, ADIFF, CMP, FE, VIDH, FT3 #### [address] [address] #### FOL, B12 #### [address] [address] Monocyte, Absolute 0.6 10 3/mcL Normal 0.2-1.0 [facility] ([place]) Comment on above: Performed By: #### G FR, LIPID, HFP, A1C, IBC, TSH, CBC, ANEU, FT4, FERR, ADIFF, CMP, FE, VIDH, FT3 #### [address] [address] #### FOL, B12 #### [address] [address] Monocytes/100 WBC (Bld) 6.6 % Normal 1.7-13.0 [facility] ([place]) Comment on above: Performed By: #### G FR, LIPID, HFP, A1C, IBC, TSH, CBC, ANEU, FT4, FERR, ADIFF, CMP, FE, VIDH, FT3 #### [address] [address] #### FOL, B12 #### [address] [address] Neutrophils/100 WBC (Bld) 77.1 % Normal 37.0-80.0 [facility] ([place]) Comment on above: Performed By: #### G FR, LIPID, HFP, A1C, IBC, TSH, CBC, ANEU, FT4, FERR, ADIFF, CMP, FE, VIDH, FT3 #### [address] [address] #### FOL, B12 #### [address] [address] .NEUABSon 03-09-2023 Neutrophil, Absolute 7.4 10 3/mcL High 2.9-6.2 [facility] ([place]) Comment on above: Performed By: #### G FR, LIPID, HFP, A1C, IBC, TSH, CBC, ANEU, FT4, FERR, ADIFF, CMP, FE, VIDH, FT3 #### [address] [address] #### FOL, B12 #### [address] [address] CBCon 03-09-2023 Erythrocyte distribution width (RBC) [Ratio] 13.9 % Normal 11.5-14.5 [facility] ([place]) Comment on above: Performed By: #### G FR, LIPID, HFP, A1C, IBC, TSH, CBC, ANEU, FT4, FERR, ADIFF, CMP, FE, VIDH, FT3 #### [address] [address] #### FOL, B12 #### [address] [address] Hematocrit (Bld) [Volume fraction] 36.3 % Low 37.0-47.0 [facility] ([place]) Comment on above: Performed By: #### G FR, LIPID, HFP, A1C, IBC, TSH, CBC, ANEU, FT4, FERR, ADIFF, CMP, FE, VIDH, FT3 #### [address] [address] #### FOL, B12 #### [address] [address] Hgb 12.6 G/dL Normal 12.0-16.0 [facility] ([place]) Comment on above: Performed By: #### G FR, LIPID, HFP, A1C, IBC, TSH, CBC, ANEU, FT4, FERR, ADIFF, CMP, FE, VIDH, FT3 #### [address] [address] #### FOL, B12 #### [address] [address] MCH (RBC) [Entitic mass] 32.4 pg High 27.0-31.2 [facility] ([place]) Comment on above: Performed By: #### G FR, LIPID, HFP, A1C, IBC, TSH, CBC, ANEU, FT4, FERR, ADIFF, CMP, FE, VIDH, FT3 #### [place] [address] #### FOL, B12 #### [place] [address] MCHC 34.7 G/dL Normal 33.0-37.0 [facility] ([place]) Comment on above: Performed By: #### G FR, LIPID, HFP, A1C, IBC, TSH, CBC, ANEU, FT4, FERR, ADIFF, CMP, FE, VIDH, FT3 #### [place] [address] #### FOL, B12 #### [address] [address] MCV (RBC) [Entitic vol] 93.3 fL Normal 80.0-94.0 [facility] ([place]) Comment on above: Performed By: #### G FR, LIPID, HFP, A1C, IBC, TSH, CBC, ANEU, FT4, FERR, ADIFF, CMP, FE, VIDH, FT3 #### [place] [id number] #### FOL, B12 #### [address] [address] Platelet 171 10 3/mcL Normal 130-400 [facility] ([place]) Comment on above: Performed By: #### G FR, LIPID, HFP, A1C, IBC, TSH, CBC, ANEU, FT4, FERR, ADIFF, CMP, FE, VIDH, FT3 #### [place] [address] #### FOL, B12 #### [address] [address] Platelet mean volume (Bld) [Entitic vol] 8.5 fL Normal 7.4-10.4 [facility] ([place]) Comment on above: Performed By: #### G FR, LIPID, HFP, A1C, IBC, TSH, CBC, ANEU, FT4, FERR, ADIFF, CMP, FE, VIDH, FT3 #### [place] [address] #### FOL, B12 #### [address] [address] RBC 3.89 10 6/mcL Low 4.20-5.40 [facility] ([place]) Comment on above: Performed By: #### G FR, LIPID, HFP, A1C, IBC, TSH, CBC, ANEU, FT4, FERR, ADIFF, CMP, FE, VIDH, FT3 #### [place] [address] #### FOL, B12 #### [place] [address] WBC 9.7 10 3/mcL Normal 4.6-10.8 [facility] ([place]) Comment on above: Performed By: #### G FR, LIPID, HFP, A1C, IBC, TSH, CBC, ANEU, FT4, FERR, ADIFF, CMP, FE, VIDH, FT3 #### [place] [address] #### FOL, B12 #### [address] [address] LABORATORYOrdered By: Isabella Eng on 03-09-2023 Group [...] SS AMNIon 03-06-2023 Amnisure Negative Normal Negative [facility] ([place]) Comment on above: Performed By: #### G FR, LIPID, HFP, A1C, IBC, TSH, CBC, ANEU, FT4, FERR, ADIFF, CMP, FE, VIDH, FT3 #### [address] [address] #### FOL, B12 #### [address] [address] LABORATORYOrdered By: Lilia Espinoza on 03-06-2023 [id number] .placental Ql (Vag fld) Negative (03/06/23 5:57 [...] SS CNCOon 11-12-2022 CNCO Letter Text Normal [facility] Bacteria Ur Culton 3 Bacteria identified Cx Nom (U) CULTURE, URINE: <10,000 CFU/ml Normal Urogenital Den Normal [facility] Comment on above: Performed By: #### 6 30-4 #### [facility] CLIA [id number] [address] ED NOTEon 10-29-2022 ED NOTE HNO ID: [id number] Author: Martienz Crouch RN Service: ? Author Type: Registered Nurse Type: ED Notes Filed: 10/28/2022 10:37 PM Note Text: Bed: 26-ED Expected date: Expected time: Means of arrival: Comments: triage Normal [facility] ED PROV NOTEon 10-29-2022 ED PROV NOTE HNO ID: [id number] Author: Danitza Reis DO Service: Emergency Medicine [...] BABS [place] CHRISTINA M 10/29/22 0323 Normal [facility] ED PROV NOTE HNO ID: [id number] Author: Danitza Reis DO Service: Emergency Medicine [...] were ketones in her urine. AOX3 HPI MssOcar Oliveira is a 22 year old at [...] was dehydrated. She follows with OB at [facility] in [place]. complicated by hyperemesis gravidarum and bleeding in [...] sign, Rovsing (more content not included)... Normal [facility] EKGon 10-29-2022 Electrocardiogram Ventricular Rate : 129 BPM Atrial Rate : 129 BPM P-R Interval : 130 ms QRS Duration : 70 ms Q-T Interval : 300 ms QTC Calculation(Bazett) : 439 ms Calculated P [place] : 31 degrees Calculated R [place] : 66 degrees Calculated T [place] : -[address] & T WAVE ABNORMALITY, CONSIDER INFERIOR ISCHEMIA ST & T WAVE ABNORMALITY, CONSIDER ANTEROLATERAL ISCHEMIA ABNORMAL ECG WHEN COMPARED WITH ECG OF 31-MAY-2022 13:06, VENT. RATE HAS INCREASED BY 58 BPM T WAVE INVERSION NOW EVIDENT IN INFERIOR LEADS INVERTED T WAVES HAVE REPLACED NONSPECIFIC T WAVE ABNORMALITY IN ANTEROLATERAL LEADS Confirmed by DO REIS CHRISTINA ([id number]) on 10/29/2022 1:44:37 AM NAME : LUZ OLIVEIRA PID : [id number] : 2000 Gender : Female Race : [...] ANTEROLATERAL LEADS Confirmed by DO REIS CHRISTINA ([id number]) on 10/29/2022 1:44:37 AM Test Reason : Location : 4 : [facility] ED26 Overread By : DO REIS CHRISTINA Edited By : DO REIS CHRISTINA Referred By : , Acquired by : KASHIF JOHNSON Normal [facility] Urinalysis complete panel (U )on 10-29-2022 Bacteria LM.HPF (Urine sed) [#/Area] Few Abnormal None Seen [facility] Comment on above: Order Comment: Speci men Type: URINE SPECIMENOrdering Facility: [facility] Address: [address] [place] [address] Performed By: #### 2 4356-8 ####[facility] LABORATORYCLIA [id number] [place] [address] [place] Bilirubin Ql (U) Negative Normal Negative [facility] Comment on above: Order Comment: Speci men Type: URINE SPECIMENOrdering Facility: [facility] Address: [address] [place] [address] Performed By: #### 2 4356-8 ####[facility]ORATORYCLIA [id number] [address] [place] Clarity (Unsp spec) Turbid Abnormal Clear [facility] Comment on above: Order Comment: Speci men Type: URINE SPECIMENOrdering Facility: [facility] Address: [address] [place] [address] Performed By: #### 2 4356-8 ####[facility]ORATORYCLIA [id number] [address] [place] Color (U) Yellow Normal yellow [facility] Comment on above: Order Comment: Speci men Type: URINE SPECIMENOrdering Facility: [facility] Address: [address] [place] [address] Performed By: #### 2 4356-8 ####[facility]ORATORYCLIA [id number] [address] [place] Epithelial cells LM.HPF (Urine sed) [#/Area] Few Normal [facility] Comment on above: Order Comment: Speci men Type: URINE SPECIMENOrdering Facility: [facility] Address: [address] [place] [address] Performed By: #### 2 4356-8 ####[facility]ATORYCLIA [id number] [address] [place] Glucose Test strip (U) [Mass/Vol] Negative Normal Trace, Negative [facility] Comment on above: Order Comment: Speci men Type: URINE SPECIMENOrdering Facility: [facility] Address: [address] [place] [address] Performed By: #### 2 4356-8 ####[facility]ORATORYCLIA [id number] [address] STATES [facility] Hemoglobin Ql (U) 1+ Abnormal Negative, Trace [facility] Comment on above: Order Comment: Speci men Type: URINE SPECIMENOrdering Facility: [facility] Address: [address] [place] [address] Performed By: #### 2 4356-8 ####[facility]ATORYCLIA [id number] [address] Ketones Ql (U) 4+ Abnormal Negative, Trace [facility] Comment on above: Order Comment: Speci men Type: URINE SPECIMENOrdering Facility: [facility] Address: [address] [place] [address] Performed By: #### 2 4356-8 ####[facility]ORATORYCLIA [id number] [address] [place] Leukocyte esterase Test strip Ql (U) 25 Misti/mL Normal Negative, 25 Misti/mL [facility] Comment on above: Order Comment: Speci men Type: URINE SPECIMENOrdering Facility: [facility] Address: [address] [place] [address] Performed By: #### 2 4356-8 ####[facility]ATORYCLIA [id number] [address] [place] Nitrite Ql (U) Negative Normal Negative [facility] Comment on above: Order Comment: Speci men Type: URINE SPECIMENOrdering Facility: [facility] Address: [address] [place] [address] Performed By: #### 2 4356-8 ####[facility]ATORYCLIA [id number] [address] [place] pH (U) 6.0 [pH] Normal 5.0-8.0 [facility] Comment on above: Order Comment: Speci men Type: URINE SPECIMENOrdering Facility: [facility] Address: [address] [place] [address] Performed By: #### 2 4356-8 ####[facility]ATORYCLIA [id number] [address] Protein (U) [Mass/Vol] 1+ Abnormal Trace, Negative [facility] Comment on above: Order Comment: Speci men Type: URINE SPECIMENOrdering Facility: [facility] Address: [address] [place] [address] Performed By: #### 2 4356-8 ####[facility]ORATORYCLIA [id number] [address] RBC LM.HPF (Urine sed) [#/Area] 6-10 /HPF Abnormal 0-3 /HPF [facility] Comment on above: Order Comment: Speci men Type: URINE SPECIMENOrdering Facility: [facility] Address: [address] [place] [address] Performed By: #### 2 4356-8 ####[facility]ATORYCLIA [id number] [address] STATES [facility] Specific gravity (U) [Rel density] 1.029 Normal 1.005-1.030 [facility] Comment on above: Order Comment: Speci men Type: URINE SPECIMENOrdering Facility: [facility] Address: [address] [place] [address] Performed By: #### 2 4356-8 ####[facility]ORATORYCLIA [id number] [address] Urobilinogen Ql (U) Normal Normal Negative [facility] Comment on above: Order Comment: Speci men Type: URINE SPECIMENOrdering Facility: [facility] Address: [address] [place] [address] Performed By: #### 2 4356-8 ####[facility]ORATORYCLIA [id number] [address] [place] WBC LM.HPF (Urine sed) [#/Area] 0-5 /HPF Normal 0-5 /HPF [facility] Comment on above: Order Comment: Speci men Type: URINE SPECIMENOrdering Facility: [facility] Address: [address] [place] [address] Performed By: #### 2 4356-8 ####[facility]ORATORYCLIA [id number] [place] [address] [place] Basic metabolic 2000 panelon 10-28-2022 Anion gap [Moles/Vol] 15 mmol/L Normal 9-18 [facility] Comment on above: Order Comment: Speci men Type: BLOOD SPECIMENOrdering Facility: [facility] Address: [address] [place] [address] Performed By: #### 2 4321-2, ####[facility]ORATORYCLIA [id number] [place] [address] [place] Calcium [Mass/Vol] 10.1 mg/dL Normal 8.5-10.2 [facility] Comment on above: Order Comment: Speci men Type: BLOOD SPECIMENOrdering Facility: [facility] Address: [address] [place] [address] Performed By: #### 2 432-2, ####[facility]ORATORYCLIA [id number] [place] [address] [place] Chloride [Moles/Vol] 102 mmol/L Normal 97-105 [facility] Comment on above: Order Comment: Speci men Type: BLOOD SPECIMENOrdering Facility: [facility] Address: [address] [place] [address] Performed By: #### 2 4321-2, ####[facility]ORATORYCLIA [id number] [place] [address] [place] CO2 [Moles/Vol] 22 mmol/L Normal 22-30 [facility] Comment on above: Order Comment: Speci men Type: BLOOD SPECIMENOrdering Facility: [facility] Address: [address] [place] [address] Performed By: #### 2 4321-2, ####[facility] LABORATORYCLIA [id number] [place] [address] [place] [facility] Creatinine [Mass/Vol] 0.61 mg/dL Normal 0.58-0.96 [facility] Comment on above: Order Comment: Eloise lopez Type: BLOOD SPECIMENOrdering Facility: [facility] Address: [address] [place] [address] Performed By: #### 2 43210-12, ####[facility] HOSPITALIA [id number] [place] [address] [facility] ESTIMATED GLOMERULAR FILTRATION RATE 129 mL/min/1.73m??? Normal >=60 [facility] Comment on above: Order Comment: Eloise lopez Type: BLOOD SPECIMENOrdering Facility: [facility] Address: [address] [place] [address] Result Comment: Tierra mated Glomerular Filtration Rate [...] reflect actual GFR. Performed By: #### 2 ####[facility] HOSPITALIA [id number] [place] [address] [place] [facility] Glucose [Mass/Vol] 86 mg/dL Normal 74-99 [facility] Comment on above: Order Comment: Eloise lopez Type: BLOOD SPECIMENOrdering Facility: [facility] Address: [address] [place] [address] Result Comment: The [place] Diabetes Association (ADA) provides guidance for cutoff [...] Standards of Medical Care in Diabetes 2016, [place] [employer]. Diabetes Care. 2016.39(Suppl 1). Performed By: #### 2 4320-2, ####[facility]ORATORYCLIA [id number] [place] [address] [place] Potassium [Moles/Vol] 3.2 mmol/L Low 3.7-5.1 [facility] Comment on above: Order Comment: [place] jessica Type: BLOOD SPECIMENOrdering Facility: [facility] Address: [address] [place] [address] Performed By: #### 2 4320-11, ####[facility]ORATORYCLIA [id number] [address] STATES OF [facility] Sodium [Moles/Vol] 139 mmol/L Normal 136-144 [facility] Comment on above: Order Comment: Eloise lopez Type: BLOOD SPECIMENOrdering Facility: [facility] Address: [address] [place] [address] Performed By: #### 2 4320-11, ####[facility]ORATORYCLIA [id number] [address] STATES [facility] Urea nitrogen [Mass/Vol] 5 mg/dL Low 7-21 [facility] Comment on above: Order Comment: [place] men Type: BLOOD SPECIMENOrdering Facility: [facility] Address: [address] [place] [address] Performed By: #### 2 4320-11, ####[facility]ORATORYCLIA [id number] [address] [place] CBC W Auto Differential pane l (Bld)on 10-28-2022 Basophils (Bld) [#/Vol] 10*3/uL Normal <0.11 [facility] Comment on above: Order Comment: [place] men Type: BLOOD SPECIMENOrdering Facility: [facility] Address: [address] [address] Performed By: #### 5 7021-8 ####[facility]ORATORYCLIA [id number] [address] Basophils/100 WBC (Bld) 0.1 % Normal [facility] Comment on above: Order Comment: Speci men Type: BLOOD SPECIMENOrdering Facility: [facility] Address: [address] [place] [address] Performed By: #### 5 7021-8 ####[facility]ORATORYCLIA [id number] [address] Differential cell count method Nom (Bld) Auto Normal [facility] Comment on above: Order Comment: Speci men Type: BLOOD SPECIMENOrdering Facility: [facility] Address: [address] [place] [address] Performed By: #### 5 7021-8 ####[facility]ORATORYCLIA [id number] [address] [place] Eosinophils (Bld) [#/Vol] 10*3/uL Normal <0.46 [facility] Comment on above: Order Comment: Speci men Type: BLOOD SPECIMENOrdering Facility: [facility] Address: [address] [place] [address] Performed By: #### 5 7021-8 ####[facility]ATORYCLIA [id number] [address] Eosinophils/100 WBC (Bld) 0.1 % Normal [facility] Comment on above: Order Comment: Speci men Type: BLOOD SPECIMENOrdering Facility: [facility] Address: [address] [place] [address] Performed By: #### 5 7021-8 ####[facility]ORATORYCLIA [id number] [address] Erythrocyte distribution width (RBC) [Ratio] 13.8 % Normal 11.5-15.0 [facility] Comment on above: Order Comment: Speci men Type: BLOOD SPECIMENOrdering Facility: [facility] Address: [address] [address] Performed By: #### 5 7021-8 ####[facility]ORATORYCLIA [id number] [address] OF [facility] Hematocrit (Bld) [Volume fraction] 38.2 % Normal 36.0-46.0 [facility] Comment on above: Order Comment: Speci men Type: BLOOD SPECIMENOrdering Facility: [facility] Address: [address] [place] [address] Performed By: #### 5 7021-8 ####[facility]ORATORYCLIA [id number] [address] [place] Hemoglobin (Bld) [Mass/Vol] 13.5 g/dL Normal 11.5-15.5 [facility] Comment on above: Order Comment: Speci men Type: BLOOD SPECIMENOrdering Facility: [facility] Address: [address] [place] [address] Performed By: #### 5 7021-8 ####[facility]ORATORYCLIA [id number] [address] [place] Immature granulocytes (Bld) [#/Vol] 0.04 10*3/uL Normal <0.10 [facility] Comment on above: Order Comment: Speci men Type: BLOOD SPECIMENOrdering Facility: [facility] Address: [address] [place] [address] Performed By: #### 5 7021-8 ####[facility]ORATORYCLIA [id number] [address] [place] Immature granulocytes/100 WBC (Bld) 0.5 % Normal [facility] Comment on above: Order Comment: Speci men Type: BLOOD SPECIMENOrdering Facility: [facility] Address: [address] [place] [address] Performed By: #### 5 7021-8 ####[facility]ORATORYCLIA [id number] [address] [place] Lymphocytes (Bld) [#/Vol] 1.53 10*3/uL Normal 1.00-4.00 [facility] Comment on above: Order Comment: Speci men Type: BLOOD SPECIMENOrdering Facility: [facility] Address: [address] [place] [address] Performed By: #### 5 7021-8 ####[facility]ORATORYCLIA [id number] [address] Lymphocytes/100 WBC (Bld) 18.8 % Normal [facility] Comment on above: Order Comment: Speci men Type: BLOOD SPECIMENOrdering Facility: [facility] Address: [address] [place] [address] Performed By: #### 5 7021-8 ####[facility]ORATORYCLIA [id number] [address] STATES OF [facility] MCH (RBC) [Entitic mass] 31.6 pg Normal 26.0-34.0 [facility] Comment on above: Order Comment: Speci men Type: BLOOD SPECIMENOrdering Facility: [facility] Address: [address] [place] [address] Performed By: #### 5 7021-8 ####[facility]ORATORYCLIA [id number] [address] STATES [facility] MCHC (RBC) [Mass/Vol] 35.3 g/dL Normal 30.5-36.0 [facility] Comment on above: Order Comment: Speci men Type: BLOOD SPECIMENOrdering Facility: [facility] Address: [address] [place] [address] Performed By: #### 5 7021-8 ####[facility]ORATORYCLIA [id number] [address] [place] MCV (RBC) [Entitic vol] 89.5 fL Normal 80.0-100.0 [facility] Comment on above: Order Comment: Speci men Type: BLOOD SPECIMENOrdering Facility: [facility] Address: [address] [place] [address] Performed By: #### 5 7021-8 ####[facility]ORATORYCLIA [id number] [address] [place] Monocytes (Bld) [#/Vol] 0.51 10*3/uL Normal <0.87 [facility] Comment on above: Order Comment: Speci men Type: BLOOD SPECIMENOrdering Facility: [facility] Address: [address] [address] Performed By: #### 5 7021-8 ####[facility] LABORATORYCLIA [id number] [address] Monocytes/100 WBC (Bld) 6.3 % Normal [facility] Comment on above: Order Comment: Speci men Type: BLOOD SPECIMENOrdering Facility: [facility] Address: [address] [place] [address] Performed By: #### 5 7021-8 ####[facility]ORATORYCLIA [id number] [address] [place] Neutrophils (Bld) [#/Vol] 6.06 10*3/uL Normal 1.45-7.50 [facility] Comment on above: Order Comment: Speci men Type: BLOOD SPECIMENOrdering Facility: [facility] Address: [address] [place] [address] Performed By: #### 5 7021-8 ####[facility]ORATORYCLIA [id number] [address] Neutrophils/100 WBC (Bld) 74.2 % Normal [facility] Comment on above: Order Comment: Speci men Type: BLOOD SPECIMENOrdering Facility: [facility] Address: [address] [place] [address] Performed By: #### 5 7021-8 ####[facility]ATORYCLIA [id number] [address] STATES [place] Nucleated RBC (Bld) [#/Vol] 10*3/uL Normal <0.01 [facility] Comment on above: Order Comment: Speci men Type: BLOOD SPECIMENOrdering Facility: [facility] Address: [address] [place], [place] [address] Performed By: #### 5 7021-8 ####[facility]ORATORYCLIA [id number] [address] STATES [place] Nucleated RBC/100 WBC (Bld) [Ratio] 0.0 /100 WBC Normal [facility] Comment on above: Order Comment: Speci men Type: BLOOD SPECIMENOrdering Facility: [facility] Address: [address] [place] [address] Performed By: #### 5 7021-8 ####[facility]ORATORYCLIA [id number] [address] [place] Platelet mean volume (Bld) [Entitic vol] 10.2 fL Normal 9.0-12.7 [facility] Comment on above: Order Comment: Speci men Type: BLOOD SPECIMENOrdering Facility: [facility] Address: [address] [place] [address] Performed By: #### 5 7021-8 ####[facility]ORATORYCLIA [id number] [address] [place] Platelets (Bld) [#/Vol] 191 10*3/uL Normal 150-400 [facility] Comment on above: Order Comment: Speci men Type: BLOOD SPECIMENOrdering Facility: [facility] Address: [address] [place] [address] Performed By: #### 5 7021-8 ####[facility]ORATORYCLIA [id number] [place] [address] [place] RBC (Bld) [#/Vol] 4.27 10*6/uL Normal 3.90-5.20 [facility] Comment on above: Order Comment: Speci men Type: BLOOD SPECIMENOrdering Facility: [facility] Address: [address] [place] [address] Performed By: #### 5 7021-8 ####[facility]ORATORYCLIA [id number] [address] [place] WBC (Bld) [#/Vol] 8.16 10*3/uL Normal 3.70-11.00 [facility] Comment on above: Order Comment: Speci men Type: BLOOD SPECIMENOrdering Facility: [facility] Address: [address] [place] [address] [place] [address] Performed By: #### 5 7021-8 ####[facility]ORATORYCLIA [id number] [place] [address] [place] ED Triage Noteon 10-28-2022 ED Triage Note HNO ID: [id number] Author: Dax Stevenson APRN.CNP Service: Emergency Medicine [...] CBC CMP EKG Urinalysis SIGNATURE: Dax Stevenson APRN.GUM PULLER Normal [facility] Magnesium SerPl-mCncon 10-28 Magnesium [Mass/Vol] 1.8 mg/dL Normal 1.7-2.3 [facility] Comment on above: Order Comment: Speci men Type: BLOOD SPECIMENOrdering Facility: [facility] Address: [facility] [address] [address] Performed By: #### 2 4321-2, 65532-2 ####[facility]ORATORYCLIA [id number] [address] [place] URINE OB DIP B/Oon 3 Glucose Ql (U) Negative Neg mg/dL [facility] Protein.monoclonal (U) [Mass/Vol] TRACE Abnormal Neg mg/dL [facility] CNCOon 08-21-2022 CNCO Letter Text Normal [facility] Bacteria Ur Culton 2 Bacteria identified Cx Nom (U) ORGANISM ID: 1 50,000-<100,000 CFU/ml Normal urogenital den Normal [facility] Comment on above: Performed By: #### 7 3752-8, 20747-1, 96408-3 #### [facility] CLIA [id number] [facility] [place] C. trachomatis+N. gonorrhoea e DNA CHICHO+probe Ql (Unsp spec)on 08-19-2022 C. trachomatis DNA CHICHO+probe Ql (Unsp spec) Negative Normal Negative for Chlamydia trachomatis by amplificaton [facility] Comment on above: Order Comment: Speci men Type: SWAB [facility] Address: [address] [place] [address] Performed By: #### 3 6902-5 #### [facility] CLIA [id number] [address] [place] [address] OF [place] N. gonorrhoeae DNA CHICHO+probe Ql (Unsp spec) Negative Normal Negative for Neisseria gonorrhoeae by amplification [facility] Comment on above: Order Comment: Speci men Type: SWAB [facility] Address: [address] [address] Performed By: #### 3 6902-5 #### [facility] CLIA [id number] [address] [place] [address] [place] CBC panel Auto (Bld)on 08-19 Erythrocyte distribution width (RBC) [Ratio] 12.4 % Normal 11.5-15.0 [facility] Comment on above: Order Comment: Speci men Type: BLOOD SPECIMEN [facility] Address: [address] [address] Performed By: #### 7 3752-8, 31915-6, 19184-5 #### [facility] CLIA [id number] [address] [place] [address] [place] Hematocrit (Bld) [Volume fraction] 40.5 % Normal 36.0-46.0 [facility] Comment on above: Order Comment: Speci men Type: BLOOD SPECIMEN [facility] Address: [address] Performed By: #### 7 3752-8, 01285-6, 90333-8 #### [facility] CLIA [id number] [address] [place] [address] [place] Hemoglobin (Bld) [Mass/Vol] 13.6 g/dL Normal 11.5-15.5 [facility] Comment on above: Order Comment: Speci men Type: BLOOD SPECIMEN [facility] Address: [address] Performed By: #### 7 3752-8, 89329-4, 66836-6 #### [facility] CLIA [id number] [address] [place] [address] [place] MCH (RBC) [Entitic mass] 30.8 pg Normal 26.0-34.0 [facility] Comment on above: Order Comment: Speci men Type: BLOOD SPECIMEN [facility] Address: [address] [address] Performed By: #### 7 3752-8, 10310-5, 69486-0 #### [facility] CLIA [id number] [address] [place] [address] [place] MCHC (RBC) [Mass/Vol] 33.6 g/dL Normal 30.5-36.0 [facility] Comment on above: Order Comment: Speci men Type: BLOOD SPECIMEN [facility] Address: [address] Performed By: #### 7 3752-8, 70369-8, 30695-9 #### [facility] CLIA [id number] [address] [place] [address] [place] MCV (RBC) [Entitic vol] 91.8 fL Normal 80.0-100.0 [facility] Comment on above: Order Comment: Speci men Type: BLOOD SPECIMEN [facility] Address: [address] Performed By: #### 7 3752-8, 10564-3, 11086-3 #### [facility] CLIA [id number] [address] [place] [address] [place] Nucleated RBC (Bld) [#/Vol] 10*3/uL Normal <0.01 [facility] Comment on above: Order Comment: Speci men Type: BLOOD SPECIMEN [facility] Address: [address] Performed By: #### 7 3752-8, 29779-8, 33267-4 #### [facility] CLIA [id number] [address] [place] [address] [place] Platelet mean volume (Bld) [Entitic vol] 10.5 fL Normal 9.0-12.7 [facility] Comment on above: Order Comment: Speci men Type: BLOOD SPECIMEN [facility] Address: [address] Performed By: #### 7 3752-8, 56454-0, 76485-6 #### [facility] [facility] CLIA [id number] [address] [place] [address] [place] Platelets (Bld) [#/Vol] 247 10*3/uL Normal 150-400 [facility] Comment on above: Order Comment: Speci men Type: BLOOD SPECIMEN [facility] Address: [address] Performed By: #### 7 3752-8, 28906-1, 13420-8 #### [facility] CLIA [id number] [address] [place] [id number] [place] RBC (Bld) [#/Vol] 4.41 10*6/uL Normal 3.90-5.20 [facility] Comment on above: Order Comment: Speci men Type: BLOOD SPECIMEN [facility]ing Facility: [facility] Address: [address] [place] [address] Performed By: #### 7 3752-8, 69263-5, 42580-9 #### [facility] CLIA [id number] [address] [place] [address] OF [facility] WBC (Bld) [#/Vol] 7.20 10*3/uL Normal 3.70-11.00 [facility] Comment on above: Order Comment: Speci men Type: BLOOD SPECIMEN [facility]ing Facility: [facility] Address: [address] [place] [address] Performed By: #### 7 3752-8, 91230-5, 70609-1 #### [facility] CLIA [id number] [address] [place] [address] STATES OF [facility] Erythrocyte distribution width (RBC) [Ratio] 12.4 % 11.5 - 15.0 % [facility] Hematocrit (Bld) [Volume fraction] 40.5 % 36.0 - 46.0 % [facility] Hemoglobin (Bld) [Mass/Vol] 13.6 g/dL 11.5 - 15.5 g/dL [facility] MCH (RBC) [Entitic mass] 30.8 pg 26.0 - 34.0 pg [facility] MCHC (RBC) [Mass/Vol] 33.6 g/dL 30.5 - 36.0 g/dL [facility] MCV (RBC) [Entitic vol] 91.8 fL 80.0 - 100.0 fL [facility] Nucleated RBC (Bld) [#/Vol] <0.01 k/uL [facility] Platelet mean volume (Bld) [Entitic vol] 10.5 fL 9.0 - 12.7 fL [facility] Platelets (Bld) [#/Vol] 247 10*3/uL 150 - 400 k/uL [facility] RBC (Bld) [#/Vol] 4.41 10*6/uL 3.90 - 5.2 0 m/uL [facility] WBC (Bld) [#/Vol] 7.20 10*3/uL 3.70 - 11. 00 k/uL [facility] HBV surface Ab IA Ql (S)on 1 10-19-2021 HBV surface Ag Ql (S) Negative Normal Negative [facility] Comment on above: Order Comment: Speci men Type: BLOOD SPECIMEN [facility] Address: [address] [place] [address] Performed By: #### 7 3752-8, 96532-5, 27294-9 #### [facility] CLIA [id number] [address] [place] [address] [place] HCV Ab Ser Qlon 08-19-2022 HCV Ab Ql (S) Negative Normal Negative [facility] Comment on above: Order Comment: Speci men Type: BLOOD SPECIMEN [facility] Address: [address] [place] [address] Result Comment: The result suggests no evidence of active infection with Hepatitis C virus. Should recent infection be suspected, repeat testing may be considered 4-6 weeks after this draw. Performed By: #### 7 3752-8, 44714-4, 33211-5 #### [facility] CLIA [id number] [address] [place] [address] [place] [facility] OF [place] HIV 1+2 Ab IA Qlon 2 HIV 1 and 2 Ab IA.rapid Nom Normal [facility] Comment on above: Order Comment: Speci men Type: BLOOD SPECIMEN [facility] Address: [address] [place] [address] Result Comment: Test not indicated. Performed By: #### 7 3752-8, 25388-8, 47827-7 #### [facility] CLIA [id number] [address] [place] [address] OF [place] HIV 1+2 Ab+HIV1 p24 Ag IA Ql Non-Reactive Normal Nonreactive [facility] Comment on above: Order Comment: Speci men Type: BLOOD SPECIMEN [facility] Address: [address] [place] [address] Performed By: #### 7 3752-8, 05014-2, 24329-2 #### [facility] CLIA [id number] [address] [place] [address] [place] HIVINT Normal [facility] Comment on above: Order Comment: Speci men Type: BLOOD SPECIMEN [facility] Address: [address] [place] [address] Result Comment: No e vidence of HIV-1 or HIV-2 infection. Should recent infection be suspected, repeat testing may be considered 2-3 weeks after this draw. [place] Rev. Code 3701.243(E): This information has been [...] or diagnoses. Performed By: #### 7 3752-8, 89090-4, 28951-1 #### [facility] CLIA [id number] [address] [place] [address] [place] No Panel Informationon 08-19 [facility] PAP FLUID CERVICAL SCREENING on 08-19-2022 CASE REPORT Normal [facility] Comment on above: Order Comment: Speci men Type: FLUID SPECIMEN [facility] Address: [address] [place] [address] Result Comment: Gyne cologic Cytology Report Case: [id number] Authorizing Provider: Braulio Hollingsworth MD Collected: 08/19/2022 02:46 PM Ordering Location: Obstetrics/Gynecology Received: 08/20/2022 12:38 PM First Screen: Shelby Umaña, CT, ASCP Rescreen: Wandy Fraser, CT, ASCP Specimen: Pap, Wholesale Account Manager, Screening, CERVICAL SCREENING FLUID Performed By: #### L [id number] #### [facility] CLIA [id number] [address] [place] [address] [place] CLINICAL HISTORY ABNORMAL PAP[LGSIL i n 2020 in [facility] Normal [facility] Comment on above: Order Comment: Speci men Type: FLUID SPECIMEN [facility] Address: [address] [place], [place] [address] Performed By: #### L [id number] #### [facility] CLIA [id number] [address] [place] [address] [place] CYTOLOGY INTERPRETATION PAP Normal [facility] Comment on above: Order Comment: Speci men Type: FLUID SPECIMEN [facility] Address: [address] [place] [address] Result Comment: Nega tive for Intraepithelial lesion or malignancy. Performed By: #### L [id number] #### [facility] CLIA [id number] [address] [place] [address] OF [facility] FINAL DIAGNOSIS Normal [facility] Comment on above: Order Comment: Speci men Type: FLUID SPECIMEN [facility] Address: [address] [place], [place] [address] Result Comment: A - CERVICAL SCREENING FLUID Satisfactory for interpretation, Excess blood Negative for Intraepithelial lesion or malignancy. Performed By: #### L [id number] #### [facility] CLIA [id number] [address] [place] [address] [place] FINAL PERFORMING LAB Normal [facility] Comment on above: Order Comment: Speci men Type: FLUID SPECIMEN [facility] Address: [address] [place], [place] [address] Result Comment: Tech nical component, tunnel mucker screening performed at [facility], [facility] [place] [id number] CLIA# [id number] Diagnostic interpretation performed at [facility], [address] [place] [address] CLIA# [id number] Commercial Loan Coordinator: Adam Farah M.D. Performed By: #### L [id number] #### [facility] CLIA [id number] [address] [place] [address] [place] GROSS DESCRIPTION [facility] Comment on above: Order Comment: Speci men Type: FLUID SPECIMEN [facility] Address: [address] [place] [address] Result Comment: A. C ERVICAL SCREENING FLUID Glacial Acetic Acid added. Performed By: #### L [id number] #### [facility] CLIA [id number] [address] [place] [address] [place] HPV REQUESTED? Yes, Reflex HPV for ASCUS Normal [facility] Comment on above: Order Comment: Speci men Type: FLUID SPECIMEN [facility] Address: [address] [place] [address] Performed By: #### L [id number] #### [facility] CLIA [id number] [address] [place] [address] [place] LMP 06/21/2022() Normal [facility] Comment on above: Order Comment: Speci men Type: FLUID SPECIMEN [facility] Address: [address] [place] [address] Performed By: #### L [id number] #### [facility] CLIA [id number] [address] [place] [address] [place] PAP DISCLAIMER COMMENT The Pap Smear is a screening test for cervical cancer. False negative results occur with all screening tests, emphasizing the need for rescreening at recommended intervals, and clinical correlation. Normal [facility] Comment on above: Order Comment: Speci men Type: FLUID SPECIMEN [facility] Address: [address] [place] [address] Performed By: #### L [id number] #### [facility] CLIA [id number] [address] [place] [address] [place] PAP PAINTING MACHINE OPERATOR COMMENT This specimen has been analyzed by the ThinPrep Imaging System, an automated imaging and review system, which assists the laboratory in evaluating cells on ThinPrep Pap tests. Following automated imaging, selected francis from every slide are reviewed by a tunnel mucker. Normal [facility] Comment on above: Order Comment: Speci men Type: FLUID SPECIMEN [facility] Address: [address] [place] [address] Performed By: #### L [id number] #### [facility] CLIA [id number] [address] [place] [address] OF [place] RUBELLA IGG ABon 08-19-2022 RUBELLA IGG AB, QUAL Positive Normal Positive [facility] Comment on above: Order Comment: Eloise lopez Type: BLOOD SPECIMEN [facility] Address: [address] [place] [address] Result Comment: The result suggests recent or past exposure to Rubella virus or history of Rubella vaccination. Positive result may also be seen due to presence of passively-transferred antibodies. Please correlate with patient's history. Performed By: #### 7 3752-8, 07047-3, 79174-2 #### [facility] CLIA [id number] [address] STATES [place] Reagin and Treponema pallidu m IgG and IgM [Interp]on 08-19-2022 SYPHILIS INTERPRETATION Cannot exclude recent Treponemal infection if specimen collected within 7-10 days after appearance of suspect lesions or 2-3 weeks after an exposure. Clinical correlation is required. Normal [facility] Comment on above: Order Comment: Speci men Type: BLOOD SPECIMEN [facility] Address: [address] [place], [place] [address] Performed By: #### 7 3752-8, 29000-1, 18572-9 #### [facility] CLIA [id number] [address] [place] [address] [place] T. pallidum IgG+IgM IA Ql (S) Non-Reactive Normal Nonreactive [facility] Comment on above: Order Comment: Speci men Type: BLOOD SPECIMEN [facility] Address: [address] [place] [address] Performed By: #### 7 3752-8, 75269-1, 70822-3 #### [facility] CLIA [id number] [address] [place] [address] [place] TSH BLDon 08-19-2022 TSH Qn 1.190 m[IU]/L 0.270 - 4.200 mIU/L [facility] TSH SerPl-aCncon 08-19-2022 TSH Qn 1.190 m[IU]/L Normal 0.270-4.200 [facility] Comment on above: Order Comment: Speci men Type: BLOOD SPECIMEN [facility] Address: [address] [place] [address] Result Comment: If t he patient is , TSH reference range varies by gestational period: First Trimester (weeks 9-12): 0.180-2.990 mIU/L Second Trimester: 0.110-3.980 mIU/L Third Trimester: 0.480-4.710 mIU/L Rafiq Winston et al. A Practical Approach for the Verifications and Determination of Site- and Trimester-Specific Reference Intervals for Thyroid Function tests in . Thyroid, 2019:29:3:412-420. William Bautista, et al. 2017 Guidelines of the [place] Thyroid [employer] for the Diagnosis and Management of Thyroid Disease during and the . Thyroid, 2017:27:3:315-389. Performed By: #### 3 016-3 #### [facility] CLIA [id number] [address] [place] [address] [place] TYPE + SCREEN PRENATALon ABO O [facility] HIstorical Ab Scr Status Negative [facility] Rh Nom (Bld) Positive [facility] Type and Screen Expiration 08/22/2022 23:59 [facility] ABO O Normal [facility] Comment on above: Order Comment: Speci men Type: BLOOD SPECIMEN [facility] Address: [address] [place] [address] Performed By: #### T SPN #### [facility] CLIA [id number] [address] HISTORICAL AB SCR STATUS Negative Normal [facility] Comment on above: Order Comment: Speci men Type: BLOOD SPECIMEN [facility] Address: [address] [place] [address] Performed By: #### T SPN #### [facility] CLIA [id number] [address] Rh Nom (Bld) Positive Normal [facility] Comment on above: Order Comment: Speci men Type: BLOOD SPECIMEN [facility] Address: [address] [place] [address] Performed By: #### T SPN #### [facility] CLIA [id number] [address] TYPE AND SCREEN EXPIRATION 08/22/2022 23:59 Normal [facility] Comment on above: Order Comment: Speci men Type: BLOOD SPECIMEN [facility] Address: [address] [place] [address] Performed By: #### T SPN #### [facility] CLIA [id number] [address] [place] [address] [place] URINE OB DIP B/Oon 2 Glucose Ql (U) Negative Neg mg/dL [facility] Protein.monoclonal (U) [Mass/Vol] Negative Neg mg/dL [facility] CONFIRM BLOOD TYPEon 022 ABO O Normal [facility] Comment on above: Order Comment: Speci men Type: BLOOD SPECIMEN [facility] Address: [address] [place] [address] Performed By: #### C ONABO #### [facility] CLIA [id number] [address] OF [place] Rh Nom (Bld) Positive Normal [facility] Comment on above: Order Comment: Speci men Type: BLOOD SPECIMEN [facility] Address: [address] [place] [address] Performed By: #### C ONABO #### [facility] [place] [id number] [address] ED Triage Noteon 08-14-2022 ED Triage Note HNO ID: [id number] Author: Kaushik Justice APRN.CNP Service: Emergency Medicine [...] a week. She was previously seen at [facility] where she states she had an [...] positive send OB triage SIGNATURE: Kaushik Justice APRN.GUM PULLER Normal [facility] TYPE + SCREEN PRENATALon ABO O Normal [facility] Comment on above: Order Comment: Speci men Type: BLOOD SPECIMEN [facility] Address: [address] [place] [address] Performed By: #### T SPN #### [facility] [id number] [address] HISTORICAL AB SCR STATUS Negative Normal [facility] Comment on above: Order Comment: Speci men Type: BLOOD SPECIMEN [facility] Address: [address] Performed By: #### T SPN #### [facility] CLIA [id number] [address] Rh Nom (Bld) Positive Normal [facility] Comment on above: Order Comment: Speci men Type: BLOOD SPECIMEN [facility] Address: [address] [place] [address] Performed By: #### T SPN #### [facility] CLIA [id number] [address] TYPE AND SCREEN EXPIRATION 08/17/2022 23:59 Normal [facility] Comment on above: Order Comment: Speci men Type: BLOOD SPECIMEN [facility] Address: [address] [place] [address] Performed By: #### T SPN #### [facility] CLIA [id number] [address] 08-10-2022 [facility] Telephone (OBGMEM) LUZ OLIVEIRA ([id number]) 2000 F Date Time Provider Department 08/10/22 [...] Status:Closed by NISA MURPHY on 11/11/22 Normal [facility] Absolute lymphocyte counton 08-09-2022 Lymphocytes Auto (Unsp spec) [#/Vol] 1.23 10*3/uL 0.83-4.51 [facility] Work Phone: Basophil percentageon 2021 Basophils/100 WBC (Bld) 0.2 % 0-1 [facility] Work Phone: Bilirubin [Mass/Vol] 0.50 mg/dL 0.20-1.00 [facility] Work Phone: Comment on above: For patients on eltr ombopag therapy, use of Dimension [place] TBIL is not recommended. Chloride [Moles/Vol] 107 mmol/L 98-107 [facility] Work Phone: Eosinophils/100 WBC (Bld) 0.3 % 0-5 [facility] Work Phone: Glucose [Mass/Vol] 122 mg/dL 74-106 [facility] Work Phone: Comment on above: Fasting Glucose resu lt from 100 to 125 mg/dL suggests IMPAIRED HOMEOSTASIS per A.D.A. criteria. Neutrophils (Bld) [#/Vol] 4.2 10*3/uL 2.0-7.7 [facility] Work Phone: Neutrophils/100 WBC (Bld) 71.9 % 47-70 [facility] Work Phone: Potassium [Moles/Vol] 3.5 mmol/L 3.5-5.1 [facility] Work Phone: Protein [Mass/Vol] 7.3 g/dL 6.4-8.2 [facility] Work Phone: Sodium [Moles/Vol] 139 mmol/L 136-145 [facility] Work Phone: WBC (Bld) [#/Vol] 5.9 10*3/uL 4.4-11.0 [facility] Work Phone: Basophil percentage 0 SEEN /hpf 0-5 [facility] Work Phone: Beta hCG serum qualon 2021 Beta HCG ( test) Ql Negative [facility] Work Phone: Comment on above: TEST is *P OSITIVE* Bilirubin Test strip Ql (U)o n 08-09-2022 Bilirubin Ql (U) Negative Negative [facility] Work Phone: Blood erythrocytes count (nu mber/volume)on 08-09-2022 RBC (Bld) [#/Vol] 4.26 10*6/uL 4.2-5.4 [facility] Work Phone: Blood hemoglobin measurement (mass/volume)on 08-09-2022 Hemoglobin (Bld) [Mass/Vol] 13.4 g/dL 12.0-15.0 [facility] Work Phone: [phone] Blood lymphocytes/100 leukoc yteson 08-09-2022 Lymphocytes/100 WBC (Bld) 21.0 % 19-41 [facility] Work Phone: [phone] Blood monocytes/100 leukocyt eson 08-09-2022 Monocytes/100 WBC (Bld) 6.3 % 0-10 [facility] Work Phone: [phone] Blood platelet mean volumeon 08-09-2022 Platelet mean volume (Bld) [Entitic vol] 10.1 fL 6.2-12.0 [facility] Work Phone: [phone] Determination of erythrocyte mean corpuscular volume (MCV)on 08-09-2022 MCV (RBC) [Entitic vol] 91.8 fL 81-99 [facility] Work Phone: Hematocrit Auto (Bld) [Volum e fraction]on 08-09-2022 Hematocrit (Bld) [Volume fraction] 39.1 % 37-47 [facility] Work Phone: [phone] Ketones Test strip Ql (U)on 08-09-2022 Ketones Ql (U) Negative Negative [facility] Work Phone: [phone] Laboratory - Chemistry and C hemistry - challengeon 08-09-2022 ALP [Catalytic activity/Vol] 56 U/L 45-117 [facility] Work Phone: ALT [Catalytic activity/Vol] 67 U/L 13-56 [facility] Work Phone: [phone] CO2 [Moles/Vol] 25.0 mmol/L 21.0-32.0 [facility] Work Phone: Globulin (S) [Mass/Vol] 3.5 g/dL 2.2-4.2 [facility] Work Phone: [phone] Urea nitrogen/Creatinine [Mass ratio] 9.7 mg/mg 10-20 [facility] Work Phone: [phone] Laboratory - Hematology and Cell countson 08-09-2022 Erythrocyte distribution width (RBC) [Entitic vol] 42.5 fL 35.1-43.9 [facility] Work Phone: [phone] Erythrocyte distribution width (RBC) [Ratio] 12.8 % 11.6-14.6 [facility] Work Phone: [phone] Immature granulocytes/100 WBC (Bld) 0.300 % 0.0-0.9 [facility] Work Phone: [phone] Comment on above: IG% - Immature Granu locytes (promyelocytes, myelocytes and metamyelocytes) > 1% indicates that a LEFT SHIFT is Present. MCH (RBC) [Entitic mass] 31.5 pg 27.0-32.0 [facility] Work Phone: [phone] Nucleated RBC/100 WBC (Bld) [Ratio] 0 % 0-5 [facility] Work Phone: [phone] MCHC Auto (RBC) [Mass/Vol]on 08-09-2022 MCHC (RBC) [Mass/Vol] 34.3 g/dL 32-36 [facility] Work Phone: [phone] Mucus LM Ql (Urine sed)on Mucus Ql (Urine sed) 0 SEEN /hpf [facility] Work Phone: [phone] Nitrite Test strip Ql (U)on 08-09-2022 Nitrite Ql (U) Negative Negative [facility] Work Phone: [phone] Panel Informationon 08-09 Estimated Creatinine Clearance Calc 81.20 ml/min [facility] Work Phone: [phone] Estimated GFR (MDRD) Amer 111 mL/min >60 [facility] Work Phone: [phone] Comment on above: GFR Calc Estimated GFR (MDRD) Non-Af Amer 91 mL/min >60 [facility] Work Phone: Comment on above: Non- GFR Calc Platelets bldon 08-09-2022 Platelets (Bld) [#/Vol] 224 10*3/uL 150-450 [facility] Work Phone: Protein Test strip Ql (U)on 08-09-2022 Protein Ql (U) Negative Negative [facility] Work Phone: Serum or plasma albumin sabino urement (mass/volume)on 08-09-2022 Albumin [Mass/Vol] 3.8 g/dL 3.2-5.0 [facility] Work Phone: Serum or plasma albumin/glob ulin mass ratioon 08-09-2022 Albumin/Globulin [Mass ratio] 1.1 {ratio} 0.9-2.4 [facility] Work Phone: Serum or plasma calcium sabino urement (mass/volume)on 08-09-2022 Calcium [Mass/Vol] 9.2 mg/dL 8.5-10.1 [facility] Work Phone: Serum or plasma choriogonado tropin detectionon 08-09-2022 HCG ( [place] [address] mIU/mL <4 [facility] Work Phone: Comment on above: hCG levels with Gest ational AgeGestational Age hCG mIU/mL (IU/L)0.2 - 1 week 5 - 501-2 weeks 50 - 5002-3 weeks 100 - 40086-4 weeks 500 - 693052-4 weeks 1000 - 846064-2 weeks 43036 - 100,0006-8 weeks 22522 - 200,0002-3 months 32243 - 100,000 Serum or plasma creatinine m easurement (mass/volume)on 08-09-2022 Creatinine [Mass/Vol] 0.82 mg/dL 0.55-1.02 [facility] Work Phone: Comment on above: The validity of the calculated GFR & GFRAA in patients over 70 years has not been determined. Clinical correlation is essential. Serum or plasma urea nitroge n measurement (mass/volume)on 08-09-2022 Urea nitrogen [Mass/Vol] 8 mg/dL 7-18 [facility] Work Phone: Squamous epithelial cells de tection in urine sediment by light microscopyon 08-09-2022 Epithelial cells.squamous LM Ql (Urine sed) 0-5 SEEN /hpf 5-10 [facility] Work Phone: Thin prep Papanicolaou smear with manual screeningon 08-09-2022 Thin prep Papanicolaou smear with manual screening 38 U/L 15-37 [facility] Work Phone: [phone] Thin prep Papanicolaou smear with manual screening 7 5-15 [facility] Work Phone: Urine blood detectionon 07-13 RBC Ql (U) 25 /ul Negative [facility] Work Phone: RBC Ql (U) 0 SEEN /hpf 0-5 [facility] Work Phone: Urine clarityon 08-09-2022 Clarity (U) Clear Clear [facility] Work Phone: Urine color determinationon 08-09-2022 Color (U) Yellow Yellow [facility] Work Phone: Urine glucose detectionon Glucose Ql (U) Normal mg/dl Normal [facility] Work Phone: Urine leukocyte esterase det ection by dipstickon 08-09-2022 Leukocyte esterase Test strip Ql (U) 25 /ul Negative [facility] Work Phone: Urine pHon 08-09-2022 pH (U) 7.0 [pH] 5.0 - 8.0 [facility] Work Phone: Urine sediment bacteria coun t by microscopy (number/high power field)on 08-09-2022 Bacteria LM.HPF (Urine sed) [#/Area] 0 /[HPF] None Seen [facility] Work Phone: Urine specific gravity measu rementon 08-09-2022 Specific gravity (U) [Rel density] 1.010 1.002-1.030 [facility] Work Phone: Urobilinogen Auto test strip Ql (U)on 08-09-2022 Urobilinogen Ql (U) Normal mg/dl Normal [facility] Work Phone: CBCon 08-04-2022 Hematocrit (Bld) [...] vol] 9.9 fL 7.4 - 12.4 fL [facility] Comment on above: MPV is a calculated measurement using platelet volume ratio. Platelets (Bld) [#/Vol] 217 10*3/uL 140 - 440 10*3/uL [facility] RBC (Bld) [#/Vol] 4.27 10*6/uL 3.80 - 5.2 0 10*6/uL [facility] WBC (Bld) [#/Vol] 5.4 10*3/uL 3.6 - 10.7 10*3/uL [facility] Test Performed by [facility] [facility], [address] [place] [address]. [address] LAB [facility] HCG, QUANTITATIVE, on 08-04-2022 hCG Quant 3840 m[IU]/mL [facility] Comment on above: Females < 5 Values [...] or gestational trophoblastic disease. Test Performed by [facility], [address] [place] [address] LAB [facility] Hemogram 08-04-2022 Erythrocyte distribution width (RBC) [Ratio] 12.8 % Normal 11.5-14.5 [facility] Comment on above: Performed By: #### H IZAG QWNT5 #### [address] [place] [address] Hematocrit (Bld) [Volume fraction] 39.2 % Normal 35.0-47.0 [facility] Comment on above: Performed By: #### H LIONEL QWNT5 #### [address] [place] [address] Hemoglobin (Bld) [Mass/Vol] 13.4 g/dL Normal 11.7-16.0 [facility] Comment on above: Performed By: #### H EMOG QWNT5 #### [address] [place] [address] MCH (RBC) [Entitic mass] 31.4 pg Normal 26.0-34.0 [facility] Comment on above: Performed By: #### H EMOG, QWNT5 #### [address] [place] [address] MCHC 34.2 % Normal 32.0-36.0 [facility] Comment on above: Performed By: #### H EMOG, QWNT5 #### [address] [place] [address] MCV (RBC) [Entitic vol] 91.8 fL Normal 79.0-98.0 [facility] Comment on above: Performed By: #### H EMOSamuel, QWNT5 #### [facility] [address] [place] [address] Platelet mean volume (Bld) [Entitic vol] 9.9 fL Normal 7.4-12.4 [facility] Comment on above: Result Comment: MPV is a calculated measurement using platelet volume ratio. Performed By: #### H EMOG, QWNT5 #### [facility] [address] [place] [address] Platelets (Bld) [#/Vol] 217 10*3/uL Normal 140-440 [facility] Comment on above: Performed By: #### H EMOG, QWNT5 #### [facility] [address] [place] [address] RBC (Bld) [#/Vol] 4.27 10*6/uL Normal 3.80-5.20 [facility] Comment on above: Performed By: #### H EMOG, QWNT5 #### [facility] [address] [place] [address] WBC (Bld) [#/Vol] 5.4 10*3/uL Normal 3.6-10.7 [facility] Comment on above: Performed By: #### H EMOG, QWNT5 #### [facility] [address] [place] [address] GELon 08-04-2022 GEL ABO Group: O Rh, Gel: POS Antibody Screen Gel: NEG Normal [facility] Comment on above: Performed By: #### P NGL #### [facility] TYPE AND SCREENon 1 ABO Grouping O [facility] Work Phone: Rh Type Positive [facility] Work Phone: Test Performed by [facility], [address] , [place], [place] [id number] [place] [address] LAB [facility] Work Phone: US OB TRANSVAGINALon 2 022 Patient Name: LUZ OLIVEIRA Ultrasound ACCESSION EXAM DATE/TIME PROCEDURE ORDERING PROVIDER [id number] 08/04/2022 12:05 EDT [place] [id number] HARRISON Transvaginal CPT code 24748 Reason For Exam (US Transvaginal) 7 weeks [...] ALFRED Transcribed Date and Time: 08/04/2022 12:31 [facility] Silas Pickens DO - 08/04/2022 Patient Name: LZU OLIVEIRA Ultrasound ACCESSION EXAM DATE/TIME PROCEDURE ORDERING PROVIDER [id number] 08/04/2022 12:05 EDT US MELANIA OCAMPO Transvaginal CPT code 41723 Reason For Exam (US Transvaginal) 7 weeks [...] TRANSVAGINALOrdered By : Silas Pickens on 08-04-2022 [facility] Work Phone: US Transvaginalon 08-04-2022 US Transvaginal Patient Name: LUZ OLIVEIRA Ultrasound ACCESSION EXAM DATE/TIME PROCEDURE ORDERING PROVIDER [id number] 08/04/2022 12:05 EDT US [id number] -AUSTYNIRAI, ANIS Transvaginal CPT code 63040 Reason For Exam (US Transvaginal) 7 weeks [...] Transcribed Date and Time: 08/04/2022 12:31 Normal [facility] hCG Quantitativeon hCG Quantitative 3840 m[IU]/mL Normal [facility] Comment on above: Result Comment: Fema les [...] gestational trophoblastic disease. Performed By: #### H [facility], QWNT5 #### [facility] [address] [place] [address] CNCOon 07-20-2022 CNCO Letter Text Normal [facility] Eliecer 07-09-2022 [facility] Tele[facility] ([employer]) LUZ OLIVEIRA ([id number]) 2000 F Date Time Provider Department 07/09/22 [...] (FLONASE) 50 mcg/actuation nasal spray Use 1 [place] in each nostril once daily. 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] 07/10/2014 Headache [R51] 07/10/2014 Unintentional weight loss [R63.4] 07/10/2014 Papanicolaou smear of cervix with low grade squ*05/21/2021 Letter Text Encounter Status:Closed by VERÓNICA ALEGRE on 07/09/22 Normal [facility] Absolute lymphocyte counton 06-29-2022 Lymphocytes Auto (Unsp spec) [#/Vol] 1.79 10*3/uL 0.83-4.51 [facility] Work Phone: Basophil percentageon 2021 Basophil percentage 0-5 SEEN /hpf 0-5 [facility] Work Phone: Basophils/100 WBC (Bld) 0.1 % 0-1 [facility] Work Phone: Chloride [Moles/Vol] 106 mmol/L 98-107 [facility]: Eosinophils/100 WBC (Bld) 0.2 % 0-5 [facility] Work Phone: Glucose [Mass/Vol] 98 mg/dL 74-106 [facility] Work Phone: Neutrophils (Bld) [#/Vol] 6.1 10*3/uL 2.0-7.7 [facility] Work Phone: Neutrophils/100 WBC (Bld) 72.2 % 47-70 [facility] Work Phone: Potassium [Moles/Vol] 3.9 mmol/L 3.5-5.1 [facility] Work Phone: Sodium [Moles/Vol] 142 mmol/L 136-145 [facility] Work Phone: WBC (Bld) [#/Vol] 8.5 10*3/uL 4.4-11.0 [facility] Work Phone: Beta hCG serum qualon 2021 Beta HCG ( test) Ql Negative [facility] Work Phone: Bilirubin Test strip Ql (U)o n 06-29-2022 Bilirubin Ql (U) Negative Negative [facility] Work Phone: Blood erythrocytes count (nu mber/volume)on 06-29-2022 RBC (Bld) [#/Vol] 4.44 10*6/uL 4.2-5.4 [facility] Work Phone: Blood hemoglobin measurement (mass/volume)on 06-29-2022 Hemoglobin (Bld) [Mass/Vol] 13.7 g/dL 12.0-15.0 [facility] Work Phone: Blood lymphocytes/100 leukoc yteson 06-29-2022 Lymphocytes/100 WBC (Bld) 21.2 % 19-41 [facility] Work Phone: Blood monocytes/100 leukocyt eson 06-29-2022 Monocytes/100 WBC (Bld) 5.8 % 0-10 [facility] Work Phone: [phone] Blood platelet mean volumeon 06-29-2022 Platelet mean volume (Bld) [Entitic vol] 9.9 fL 6.2-12.0 [facility] Work Phone: Determination of erythrocyte mean corpuscular volume (MCV)on 06-29-2022 MCV (RBC) [Entitic vol] 90.5 fL 81-99 [facility] Work Phone: Hematocrit Auto (Bld) [Volum e fraction]on 06-29-2022 Hematocrit (Bld) [Volume fraction] 40.2 % 37-47 [facility] Work Phone: [phone] Ketones Test strip Ql (U)on 06-29-2022 Ketones Ql (U) Negative Negative [facility] Work Phone: Laboratory - Chemistry and C hemistry - challengeon 06-29-2022 CO2 [Moles/Vol] 28.0 mmol/L 21.0-32.0 [facility] Work Phone: Urea nitrogen/Creatinine [Mass ratio] 23.1 mg/mg 10-20 [facility] Work Phone: [phone] Laboratory - Hematology and Cell countson 06-29-2022 Erythrocyte distribution width (RBC) [Entitic vol] 41.0 fL 35.1-43.9 [facility] Work Phone: [phone] Erythrocyte distribution width (RBC) [Ratio] 12.7 % 11.6-14.6 [facility] Work Phone: [phone] Immature granulocytes/100 WBC (Bld) 0.500 % 0.0-0.9 [facility] Work Phone: [phone] Comment on above: IG% - Immature Granu locytes (promyelocytes, myelocytes and metamyelocytes) > 1% indicates that a LEFT SHIFT is Present. MCH (RBC) [Entitic mass] 30.9 pg 27.0-32.0 [facility] Work Phone: Nucleated RBC/100 WBC (Bld) [Ratio] 0 % 0-5 [facility] Work Phone: MCHC Auto (RBC) [Mass/Vol]on 06-29-2022 MCHC (RBC) [Mass/Vol] 34.1 g/dL 32-36 [facility] Work Phone: Mucus LM Ql (Urine sed)on Mucus Ql (Urine sed) 0 SEEN /hpf [facility] Work Phone: Nitrite Test strip Ql (U)on 06-29-2022 Nitrite Ql (U) Negative Negative [facility] Work Phone: No Panel Informationon 06-29 Estimated Creatinine Clearance Calc 89.98 ml/min [facility] Work Phone: Estimated GFR (MDRD) Amer 126 mL/min >60 [facility] Work Phone: Comment on above: GFR Calc Estimated GFR (MDRD) Non-Af Amer 104 mL/min >60 [facility] Work Phone: Comment on above: Non- GFR Calc Platelets bldon 06-29-2022 Platelets (Bld) [#/Vol] 287 10*3/uL 150-450 [facility] Work Phone: Protein Test strip Ql (U)on 06-29-2022 Protein Ql (U) 30 mg/dl Negative [facility] Work Phone: [phone] Serum or plasma calcium sabino urement (mass/volume)on 06-29-2022 Calcium [Mass/Vol] 9.7 mg/dL 8.5-10.1 [facility] Work Phone: [phone] Serum or plasma creatinine m easurement (mass/volume)on 06-29-2022 Creatinine [Mass/Vol] 0.74 mg/dL 0.55-1.02 [facility] Work Phone: Comment on above: The validity of the calculated GFR & GFRAA in patients over 70 years has not been determined. Clinical correlation is essential. Serum or plasma urea nitroge n measurement (mass/volume)on 06-29-2022 Urea nitrogen [Mass/Vol] 17 mg/dL 7-18 [facility] Work Phone: Squamous epithelial cells de tection in urine sediment by light microscopyon 06-29-2022 Epithelial cells.squamous LM Ql (Urine sed) 0-5 SEEN /hpf 5-10 [facility] Work Phone: Thin prep Papanicolaou smear with manual screeningon 06-29-2022 Thin prep Papanicolaou smear with manual screening 8 5-15 [facility] Work Phone: Urine blood detectionon 06-11 RBC Ql (U) 25 /ul Negative [facility] Work Phone: RBC Ql (U) 0-5 SEEN /hpf 0-5 [facility] Work Phone: Urine clarityon 06-29-2022 Clarity (U) Clear Clear [facility] Work Phone: Urine color determinationon 06-29-2022 Color (U) Yellow Yellow [facility] Work Phone: Urine glucose detectionon Glucose Ql (U) Normal mg/dl Normal [facility] Work Phone: Urine leukocyte esterase det ection by dipstickon 06-29-2022 Leukocyte esterase Test strip Ql (U) 25 /ul Negative [facility] Work Phone: Urine pHon 06-29-2022 pH (U) 6.5 [pH] 5.0 - 8.0 [facility] Work Phone: Urine sediment bacteria coun t by microscopy (number/high power field)on 06-29-2022 Bacteria LM.HPF (Urine sed) [#/Area] 0 /[HPF] None Seen [facility] Work Phone: Urine specific gravity measu rementon 06-29-2022 Specific gravity (U) [Rel density] 1.010 1.002-1.030 [facility] Work Phone: Urobilinogen Auto test strip Ql (U)on 06-29-2022 Urobilinogen Ql (U) Normal mg/dl Normal [facility] Work Phone: CBC W Auto Differential pane l (Bld)on 05-31-2022 Basophils (Bld) [#/Vol] 10*3/uL Normal <0.11 [facility] Comment on above: Order Comment: Speci men Type: BLOOD SPECIMENOrdering Facility: [facility] Address: [address] [address] Performed By: #### 5 7021-8 ####[facility] LABORATORYCLIA [id number] [address] [place] Basophils/100 WBC (Bld) 0.0 % Normal [facility] Comment on above: Order Comment: Speci men Type: BLOOD SPECIMENOrdering Facility: [facility] Address: [address] [place] [address] Performed By: #### 5 7021-8 ####[facility]ATORYCLIA [id number] [address] [place] Differential cell count method Nom (Bld) Auto Normal [facility] Comment on above: Order Comment: Speci men Type: BLOOD SPECIMENOrdering Facility: [facility] Address: [address] [place] [address] Performed By: #### 5 7021-8 ####[facility]ORYCLIA [id number] [place] [address] [place] Eosinophils (Bld) [#/Vol] 10*3/uL Normal <0.46 [facility] Comment on above: Order Comment: Speci men Type: BLOOD SPECIMENOrdering Facility: [facility] Address: [address] [place] [address] Performed By: #### 5 7021-8 ####[facility]ORYCLIA [id number] [place] [address] [place] Eosinophils/100 WBC (Bld) 0.2 % Normal [facility] Comment on above: Order Comment: Speci men Type: BLOOD SPECIMENOrdering Facility: [facility] Address: [address] [place] [address] Performed By: #### 5 7021-8 ####[facility]ORATORYCLIA [id number] [address] Erythrocyte distribution width (RBC) [Ratio] 12.5 % Normal 11.5-15.0 [facility] Comment on above: Order Comment: Speci men Type: BLOOD SPECIMENOrdering Facility: [facility] Address: [address] [place] [address] Performed By: #### 5 7021-8 ####[facility]ATORYCLIA [id number] [address] Hematocrit (Bld) [Volume fraction] 38.8 % Normal 36.0-46.0 [facility] Comment on above: Order Comment: Speci men Type: BLOOD SPECIMENOrdering Facility: [facility] Address: [address] [place] [address] Performed By: #### 5 7021-8 ####[facility]ATORYCLIA [id number] [address] Hemoglobin (Bld) [Mass/Vol] 13.4 g/dL Normal 11.5-15.5 [facility] Comment on above: Order Comment: Speci men Type: BLOOD SPECIMENOrdering Facility: [facility] Address: [address] [place] [address] Performed By: #### 5 7021-8 ####[facility]ORATORYCLIA [id number] [address] IMMATURE GRAN % 0.2 % Normal [facility] Comment on above: Order Comment: Speci men Type: BLOOD SPECIMENOrdering Facility: [facility] Address: [address] [place] [address] Performed By: #### 5 7021-8 ####[facility]ATORYCLIA [id number] [place] [address] IMMATURE GRAN ABS <0.03 Normal <0.10 [facility] Comment on above: Order Comment: Speci men Type: BLOOD SPECIMENOrdering Facility: [facility] Address: [address] [place] [address] Performed By: #### 5 7021-8 ####[facility]ORATORYCLIA [id number] [address] OF [facility] Lymphocytes (Bld) [#/Vol] 1.08 10*3/uL Normal 1.00-4.00 [facility] Comment on above: Order Comment: Speci men Type: BLOOD SPECIMENOrdering Facility: [facility] Address: [address] [place] [address] Performed By: #### 5 7021-8 ####[facility]ATORYCLIA [id number] [address] Lymphocytes/100 WBC (Bld) 26.3 % Normal [facility] Comment on above: Order Comment: Speci men Type: BLOOD SPECIMENOrdering Facility: [facility] Address: [address] [place] [address] Performed By: #### 5 7021-8 ####[facility]ATORYCLIA [id number] [address] MCH (RBC) [Entitic mass] 30.2 pg Normal 26.0-34.0 [facility] Comment on above: Order Comment: Speci men Type: BLOOD SPECIMENOrdering Facility: [facility] Address: [address] [place] [address] Performed By: #### 5 7021-8 ####[facility]ATORYCLIA [id number] [address] MCHC (RBC) [Mass/Vol] 34.5 g/dL Normal 30.5-36.0 [facility] Comment on above: Order Comment: Speci men Type: BLOOD SPECIMENOrdering Facility: [facility] Address: [address] [place] [address] Performed By: #### 5 7021-8 ####[facility]ORYCLIA [id number] [address] [place] MCV (RBC) [Entitic vol] 87.6 fL Normal 80.0-100.0 [facility] Comment on above: Order Comment: Speci men Type: BLOOD SPECIMENOrdering Facility: [facility] Address: [address] [place] [address] Performed By: #### 5 7021-8 ####[facility]ORYCLIA [id number] [address] [place] Monocytes (Bld) [#/Vol] 0.34 10*3/uL Normal <0.87 [facility] Comment on above: Order Comment: Speci men Type: BLOOD SPECIMENOrdering Facility: [facility] Address: [address] [place] [address] Performed By: #### 5 7021-8 ####[facility]ATORYCLIA [id number] [address] Monocytes/100 WBC (Bld) 8.3 % Normal [facility] Comment on above: Order Comment: Speci men Type: BLOOD SPECIMENOrdering Facility: [facility] Address: [address] [place] [address] Performed By: #### 5 7021-8 ####[facility]ATORYCLIA [id number] [address] [place] Neutrophils (Bld) [#/Vol] 2.66 10*3/uL Normal 1.45-7.50 [facility] Comment on above: Order Comment: Speci men Type: BLOOD SPECIMENOrdering Facility: [facility] Address: [address] [place] [address] Performed By: #### 5 7021-8 ####[facility]ATORYCLIA [id number] [address] [place] Neutrophils/100 WBC (Bld) 65.0 % Normal [facility] Comment on above: Order Comment: Speci men Type: BLOOD SPECIMENOrdering Facility: [facility] Address: [address] Performed By: #### 5 7021-8 ####[facility]ATORYCLIA [id number] [address] Nucleated RBC (Bld) [#/Vol] 10*3/uL Normal <0.01 [facility] Comment on above: Order Comment: Speci men Type: BLOOD SPECIMENOrdering Facility: [facility] Address: [address] Performed By: #### 5 7021-8 ####[facility]ORATORYCLIA [id number] [address] Nucleated RBC/100 WBC (Bld) [Ratio] 0.0 /100 WBC Normal [facility] Comment on above: Order Comment: Speci men Type: BLOOD SPECIMENOrdering Facility: [facility] Address: [address] [place] [address] Performed By: #### 5 7021-8 ####[facility]ORATORYCLIA [id number] [address] STATES [facility] Platelet mean volume (Bld) [Entitic vol] 9.7 fL Normal 9.0-12.7 [facility] Comment on above: Order Comment: Speci men Type: BLOOD SPECIMENOrdering Facility: [facility] Address: [address] Performed By: #### 5 7021-8 ####[facility]ATORYCLIA [id number] [address] Platelets (Bld) [#/Vol] 178 10*3/uL Normal 150-400 [facility] Comment on above: Order Comment: Speci men Type: BLOOD SPECIMENOrdering Facility: [facility] Address: [address] [place] [address] Performed By: #### 5 7021-8 ####[facility]ATORYCLIA [id number] [address] [place] RBC (Bld) [#/Vol] 4.43 10*6/uL Normal 3.90-5.20 [facility] Comment on above: Order Comment: Speci men Type: BLOOD SPECIMENOrdering Facility: [facility] Address: [address] [place] [address] Performed By: #### 5 7021-8 ####[facility]ORATORYCLIA [id number] [address] OF [facility] WBC (Bld) [#/Vol] 4.10 10*3/uL Normal 3.70-11.00 [facility] Comment on above: Order Comment: Speci men Type: BLOOD SPECIMENOrdering Facility: [facility] Address: [address] [place] [address] Performed By: #### 5 7021-8 ####[facility]ATORYCLIA [id number] [address] Comprehensive metabolic 2000 panelon 05-31-2022 Albumin [Mass/Vol] 4.5 g/dL Normal 3.9-4.9 [facility] Comment on above: Order Comment: Speci men Type: BLOOD SPECIMENOrdering Facility: [facility] Address: [address] [place] [address] Performed By: #### 3 040-3, 99283-9, 04394-5 ####[facility]ATORYCLIA [id number] [address] STATES OF [facility] ALP [Catalytic activity/Vol] 60 U/L Normal 34-123 [facility] Comment on above: Order Comment: Speci men Type: BLOOD SPECIMENOrdering Facility: [facility] Address: [address] [place] [address] Performed By: #### 3 040-3, 57839-0, 72730-9 ####[facility]ORATORYCLIA [id number] [address] OF [facility] ALT With P-5'-P [Catalytic activity/Vol] 55 U/L High 7-38 [facility] Comment on above: Order Comment: Speci men Type: BLOOD SPECIMENOrdering Facility: [facility] Address: [address] [place] [address] Performed By: #### 3 040-3, , ####[facility]ORATORYCLIA [id number] [address] STATES OF [facility] Anion gap [Moles/Vol] 12 mmol/L Normal 9-18 [facility] Comment on above: Order Comment: Speci men Type: BLOOD SPECIMENOrdering Facility: [facility] Address: [address] [place] [address] Performed By: #### 3 040-3, , ####[facility] LABORATORYCLIA [id number] [place] [address] [place] AST With P-5'-P [Catalytic activity/Vol] 57 U/L High 13-35 [facility] Comment on above: Order Comment: Speci men Type: BLOOD SPECIMENOrdering Facility: [facility] Address: [address] [place] [address] Performed By: #### 3 040-3, , ####[facility] LABORATORYCLIA [id number] [place] [address] [place] Bilirubin [Mass/Vol] 0.5 mg/dL Normal 0.2-1.3 [facility] Comment on above: Order Comment: Speci men Type: BLOOD SPECIMENOrdering Facility: [facility] Address: [address] [place] [address] Performed By: #### 3 040-3, 54460-4, ####[facility]ORATORYCLIA [id number] [address] [place] Calcium [Mass/Vol] 8.9 mg/dL Normal 8.5-10.2 [facility] Comment on above: Order Comment: Speci men Type: BLOOD SPECIMENOrdering Facility: [facility] Address: [address] [place] [address] Performed By: #### 3 040-3, 54930-5, ####[facility]ORATORYCLIA [id number] [place] [address] [place] Chloride [Moles/Vol] 102 mmol/L Normal 97-105 [facility] Comment on above: Order Comment: Speci men Type: BLOOD SPECIMENOrdering Facility: [facility] Address: [address] [place] [address] Performed By: #### 3 040-3, 01380-6, ####[facility]ORATORYCLIA [id number] [place] [address] [place] CO2 [Moles/Vol] 25 mmol/L Normal 22-30 [facility] Comment on above: Order Comment: Speci men Type: BLOOD SPECIMENOrdering Facility: [facility] Address: [address] [place] [address] Performed By: #### 3 040-3, , ####[facility] LABORATORYCLIA [id number] [address] OF [facility] Creatinine [Mass/Vol] 0.74 mg/dL Normal 0.58-0.96 [facility] Comment on above: Order Comment: Speci men Type: BLOOD SPECIMENOrdering Facility: [facility] Address: [address] [place] [address] Performed By: #### 3 040-3, , ####[facility]ORATORYCLIA [id number] [address] ESTIMATED GLOMERULAR FILTRATION RATE 117 mL/min/1.73m??? Normal >=60 [facility] Comment on above: Order Comment: Speci men Type: BLOOD SPECIMENOrdering Facility: [facility] Address: [address] [place] [address] Result Comment: Tierra mated Glomerular Filtration Rate [...] GFR. Performed By: #### 3 040-3, , ####[facility]ORATORYCLIA [id number] [place] [address] [place] Glucose [Mass/Vol] 91 mg/dL Normal 74-99 [facility] Comment on above: Order Comment: Eloise lopez Type: BLOOD SPECIMENOrdering Facility: [facility] Address: [address] [place] [phone] Result Comment: The [place] [employer] (ADA) provides guidance for cutoff [...] Standards of Medical Care in Diabetes 2016, [place] [employer]. Diabetes Care. 2016.39(Suppl 1). Performed By: #### 3 040-3, , ####[facility] LABORATORYCLIA [id number] [place] [id number] [place] [place] Potassium [Moles/Vol] 3.6 mmol/L Low 3.7-5.1 [facility] Comment on above: Order Comment: Eloise lopez Type: BLOOD SPECIMENOrdering Facility: [facility] Address: [address] [place] [address] Performed By: #### 3 040-3, , ####[facility] LABORATORYCLIA [id number] [place] [address] [place] Protein [Mass/Vol] 6.7 g/dL Normal 6.3-8.0 [facility] Comment on above: Order Comment: Speci men Type: BLOOD SPECIMENOrdering Facility: [facility] Address: [address] [place] [address] Performed By: #### 3 040-3, , ####[facility] LABORATORYCLIA [id number] [address] OF [facility] Sodium [Moles/Vol] 139 mmol/L Normal 136-144 [facility] Comment on above: Order Comment: Speci men Type: BLOOD SPECIMENOrdering Facility: [facility] Address: [address] [place] [address] Performed By: #### 3 040-3, 90981-6, ####[facility] LABORATORYCLIA [id number] [address] [place] nitrogen [Mass/Vol] 7 mg/dL Normal 7-21 [facility] Comment on above: Order Comment: Speci men Type: BLOOD SPECIMENOrdering Facility: [facility] Address: [address] [place] [address] Performed By: #### 3 040-3, 60014-5, ####[facility] LABORATORYCLIA [id number] [address] ED NOTEon 05-31-2022 ED NOTE HNO ID: [id number] Author: Agueda Meng RN Service: Emergency Medicine Author Type: Registered Nurse Type: ED Notes Filed: 05/31/2022 2:42 PM Note Text: Pt alert and oriented x 4, speaking in full sentences with unlabored breathing. Pt verbalizes understanding of discharge paperwork. Pt ambulated from department without difficulty. Normal [facility] ED NOTE HNO ID: [id number] Author: Agueda Meng RN Service: Emergency Medicine [...] Is at bedside at this time. Normal [facility] ED NOTE HNO ID: [id number] Author: Agueda Meng RN Service: Emergency Medicine Author Type: Registered Nurse Type: ED Notes Filed: 05/31/2022 12:14 PM Note Text: POC BG 80 Normal [facility] ED NOTE HNO ID: [id number] Author: Agueda Meng RN Service: Emergency Medicine Author Type: Registered Nurse Type: ED Notes Filed: 05/31/2022 11:36 AM Note Text: Pt c/o weakness along with generalized illness symptoms. Pt placed on the bedside gambling monitor at this time. Normal [facility] ED NOTE HNO ID: [id number] Author: Danuta Staley RN Service: ? Author Type: Registered Nurse Type: ED Notes Filed: 05/31/2022 11:04 AM Note Text: Bed: 46-ED Expected date: Expected time: Means of arrival: Comments: triage Normal [facility] ED PROV NOTEon 05-31-2022 ED PROV NOTE HNO ID: [id number] Author: Hiwot Hudson MD Service: Emergency Medicine [...] PM Hiwot Hudson MD 05/31/22 1548 Normal [facility] ED PROV NOTE HNO ID: [id number] Author: Hiwot Hudson MD Service: Emergency Medicine [...] Diagnosis Date Cognitive disorder IEP per the [facility] Kidney [...] ED Course (more content not included)... Normal [facility] EKGon 05-31-2022 Electrocardiogram Ventricular Rate : 7 1 BPM Atrial Rate : 71 BPM P-R Interval : 118 ms QRS Duration : 84 ms Q-T Interval : 448 ms QTC Calculation(Bazett) : 486 ms Calculated P [place] : 23 degrees Calculated R [place] : 58 degrees Calculated T [place] : 27 degrees NORMAL SINUS RHYTHM NONSPECIFIC T WAVE ABNORMALITY PROLONGED QT ABNORMAL ECG NO PREVIOUS ECGS AVAILABLE Confirmed by KAUSHIK GUADALUPE MD ([id number]) on 06/04/2022 3:38:07 AM NAME : LUZ OLIVEIRA PID : [id number] : 2000 Gender : Female Race : ORD : Procedure Date : May 31 2022 13:06:20 Edit Date : Jun 04 2022 03:38:08 Diagnosis: NORMAL SINUS RHYTHM NONSPECIFIC T WAVE ABNORMALITY PROLONGED QT ABNORMAL ECG NO PREVIOUS ECGS AVAILABLE Confirmed by KAUSHIK GUADALUPE MD ([id number]) on 06/04/2022 3:38:07 AM Test Reason : Location : 4 : [place] Overread By : KAUSHIK GUADALUPE MD Edited By : KAUSHIK GUADALUPE MD Referred By : , Acquired by : FRIEDKIRTI Normal [facility] HCG Preg Ur Qlon 05-31-2022 HCG ( test) Ql (U) Negative Normal Negative [facility] Comment on above: Order Comment: Speci men Type: URINE SPECIMENOrdering Facility: [facility] Address: [address] [place], [place] [address] Result Comment: This test is intended to aid in the early detection of . Very dilute urine samples, as indicated by a low specific gravity, may not contain food service representative levels of hCG. This test detects [...] for . Performed By: #### 2 106-3 ####[facility] LABORATORYCLIA [id number] [place] [address] [place] Lipase SerPl-cCncon 05-31-20 Lipase [Catalytic activity/Vol] 17 U/L Normal 16-61 [facility] Comment on above: Order Comment: Speci men Type: BLOOD SPECIMENOrdering Facility: [facility] Address: [address] [place] [address] Performed By: #### 3 040-3, 44114-9, 69336-8 ####[facility] LABORATORYCLIA [id number] [place] [address] [place] Magnesium SerPl-mCncon 05-31 Magnesium [Mass/Vol] 1.8 mg/dL Normal 1.7-2.3 [facility] Comment on above: Order Comment: Speci men Type: BLOOD SPECIMENOrdering Facility: [facility] Address: [address] [place] [address] Performed By: #### 3 040-3, 60013-8, 92582-1 ####[facility] LABORATORYCLIA [id number] [place] [address] [place] ROUTINE FLU A/B + RSVon 08- FLUAV RNA CHICHO+probe Ql (Unsp spec) Negative Normal Negative for Influenza A by RT-PCR [facility] Comment on above: Order Comment: Speci men Type: SWAB OF INTERNAL NOSEOrdering Facility: [facility] Address: [address] [place] [address] Performed By: #### R TFRSV, 76292-1 ####[facility] LABCLIA [id number] [address] [place] FLUBV RNA CHICHO+probe Ql (Unsp spec) Negative Normal Negative for Influenza B by RT-PCR [facility] Comment on above: Order Comment: Speci men Type: SWAB OF INTERNAL NOSEOrdering Facility: [facility] Address: [address] [place] [address] Performed By: #### R TFRSV, 20452-6 ####[facility] LABCLIA [id number] [place] [address] [place] RSV A RNA CHICHO+probe Ql (Unsp spec) Negative Normal Negative for Respiratory Syncytial Virus (RSV) by PCR [facility] Comment on above: Order Comment: Speci men Type: SWAB OF INTERNAL NOSEOrdering Facility: [facility] Address: [address] [place] [address] Performed By: #### R TFRSV, 67253-3 ####[facility] LABCLIA [id number] [place] [address] [place] SARS-CoV-2 RNA Resp Ql CHICHO+p robeon 05-31-2022 SARS-CoV-2 (COVID-19) RNA CHICHO+probe Ql (Resp) SARS-CoV-2 (Agent of COVID-19) Detected by RT-PCR or equivalent method. Abnormal Not Detected [facility] Comment on above: Order Comment: Speci men Type: SWAB OF INTERNAL NOSEOrdering Facility: [facility] Address: [address] [place] [address] Result Comment: This test was developed and its performance characteristics determined by [facility]'s [facility] Pathology and Laboratory Medicine [place]. This test has been authorized by FDA under an Emergency Use Authorization (EUA). This test has been validated in accordance with the FDA's Guidance Document Policy for Diagnostics Testing in Laboratories Certified to Perform High Complexity Testing under CLIA prior to Emergency use Authorization for Coronavirus Disease 2019 during the Public Health Emergency issued on December 09, 2019. Test performed by [facility], [facility] Pathology and Laboratory Medicine [place], [address] [place] [address]. Performed By: #### R [facility], 32053-7 ####[facility] LABCLIA [id number] [address] [place] Urinalysis complete panel (U )on 05-31-2022 Bilirubin Ql (U) Negative Normal Negative [facility] Comment on above: Order Comment: Speci men Type: URINE SPECIMENOrdering Facility: [facility] Address: [address] [place] [address] Performed By: #### 2 4356-8 ####[facility] LABORATORYCLIA [id number] [address] [place] Clarity (Unsp spec) Clear Normal Clear [facility] Comment on above: Order Comment: Speci men Type: URINE SPECIMENOrdering Facility: [facility] Address: [address] [place] [address] Performed By: #### 2 4356-8 ####[facility] LABORATORYCLIA [id number] [address] [place] Color (U) Colorless Normal yellow [facility] Comment on above: Order Comment: Speci men Type: URINE SPECIMENOrdering Facility: [facility] Address: [address] [place] [address] Performed By: #### 2 4356-8 ####[facility] LABORATORYCLIA [id number] [address] Glucose Test strip (U) [Mass/Vol] Negative Normal Negative [facility] Comment on above: Order Comment: Speci men Type: URINE SPECIMENOrdering Facility: [facility] Address: [address] [place] [address] Performed By: #### 2 4356-8 ####[facility] LABORATORYCLIA [id number] [address] Hemoglobin Ql (U) Negative Normal Negative [facility] Comment on above: Order Comment: Speci men Type: URINE SPECIMENOrdering Facility: [facility] Address: [address] [place] [address] Performed By: #### 2 4356-8 ####[facility] LABORATORYCLIA [id number] [address] [place] Ketones Ql (U) 2+ Abnormal Negative [facility] Comment on above: Order Comment: Speci men Type: URINE SPECIMENOrdering Facility: [facility] Address: [address] [place] [address] Performed By: #### 2 4356-8 ####[facility]ORATORYCLIA [id number] [address] Leukocyte esterase Test strip Ql (U) Negative Normal Negative [facility] Comment on above: Order Comment: Speci men Type: URINE SPECIMENOrdering Facility: [facility] Address: [address] [place] [address] Performed By: #### 2 4356-8 ####[facility] LABORATORYCLIA [id number] [place] [address] [place] Nitrite Ql (U) Negative Normal Negative [facility] Comment on above: Order Comment: Speci men Type: URINE SPECIMENOrdering Facility: [facility] Address: [address] [place] [address] Performed By: #### 2 4356-8 ####[facility] LABORATORYCLIA [id number] [address] STATES [facility] pH (U) 7.5 [pH] Normal 5.0-8.0 [facility] Comment on above: Order Comment: Speci men Type: URINE SPECIMENOrdering Facility: [facility] Address: [address] [place] [address] Performed By: #### 2 4356-8 ####[facility]ORATORYCLIA [id number] [address] STATES [facility] Protein (U) [Mass/Vol] Negative Normal Negative [facility] Comment on above: Order Comment: Speci men Type: URINE SPECIMENOrdering Facility: [facility] Address: [address] [place] [address] Performed By: #### 2 4356-8 ####[facility]ORATORYCLIA [id number] [address] [place] RBC LM.HPF (Urine sed) [#/Area] 0-3 /HPF Normal 0-3 /HPF [facility] Comment on above: Order Comment: Speci men Type: URINE SPECIMENOrdering Facility: [facility] Address: [address] [place] [address] Performed By: #### 2 4356-8 ####[facility] LABORATORYCLIA [id number] [address] Urobilinogen Ql (U) Normal Normal Negative [facility] Comment on above: Order Comment: Speci men Type: URINE SPECIMENOrdering Facility: [facility] Address: [address] [place] [address] Performed By: #### 2 4356-8 ####[facility] LABORATORYCLIA [id number] [address] [place] WBC LM.HPF (Urine sed) [#/Area] 0-5 /HPF Normal 0-5 /HPF [facility] Comment on above: Order Comment: Speci men Type: URINE SPECIMENOrdering Facility: [facility] Address: [address] [place] [address] Performed By: #### 2 4356-8 ####[facility] LABORATORYCLIA [id number] [address] Urinalysis complete pnl Uron 05-31-2022 Specific gravity (U) [Rel density] 1.005 Normal 1.005-1.030 [facility] Comment on above: Order Comment: Speci men Type: URINE SPECIMENOrdering Facility: [facility] Address: [address] [place] [address] Performed By: #### 2 4356-8 ####[facility] LABORATORYCLIA [id number] [address] Result Comment: If s pecific gravity is <1.005 then results may be falsely negative. Serum HCG is recommended. Performed By: #### 2 106-3 ####[facility] LABORATORYCLIA [id number] [address] ALLIED HEALTHon 12-31-2021 ALLIED [facility]ALTH HNO ID: [id number] Author: RT Tierney(R) Service: Radiology Author Type: Hr Recruiter Type: Allied Health Filed: 12/31/2021 7:25 PM [...] December 31, 2021 TIME: 7:20 PM Normal [facility] Bacteria Ur Culton 2 Bacteria identified Cx Nom (U) CULTURE, URINE: Three or more urogenital den organisms. No predominating uropathogen. Recollect if clinically indicated. Normal [facility] Comment on above: Performed By: #### 6 30-4 #### [facility] CLIA [id number] [address] [place] [facility] CBC W Auto Differential pane l (Bld)on 12-31-2021 Basophils (Bld) [#/Vol] 10*3/uL Normal <0.11 [facility] Comment on above: Order Comment: Speci men Type: BLOOD SPECIMENOrdering Facility: [facility] Address: [address] [place] [address] [place] [address] Performed By: #### 5 7021-8 ####[facility] LABCLIA [id number] [address] [place] [facility] Basophils/100 WBC (Bld) 0.1 % Normal [facility] Comment on above: Order Comment: Speci men Type: BLOOD SPECIMENOrdering Facility: [facility] Address: [address] [place] [address] Performed By: #### 5 7021-8 ####[facility] LABCLIA [id number] [facility] [place] [address] [facility] Differential cell count method Nom (Bld) Auto Normal [facility] Comment on above: Order Comment: Speci men Type: BLOOD SPECIMENOrdering Facility: [facility] Address: [address] [place] [address] Performed By: #### 5 7021-8 ####[facility] LABCLIA [id number] [facility] [place] [address] [facility] Eosinophils (Bld) [#/Vol] 0.03 10*3/uL Normal <0.46 [facility] Comment on above: Order Comment: Speci men Type: BLOOD SPECIMENOrdering Facility: [facility] Address: [address] [place] [address] Performed By: #### 5 7021-8 ####[facility] LABCLIA [id number] [facility], [facility] Eosinophils/100 WBC (Bld) 0.3 % Normal [facility] Comment on above: Order Comment: Speci men Type: BLOOD SPECIMENOrdering Facility: [facility] Address: [address] [place] [address] Performed By: #### 5 7021-8 ####[facility] LABCLIA [id number] [facility] [place] [address] [facility] [place] Erythrocyte distribution width (RBC) [Ratio] 12.0 % Normal 11.5-15.0 [facility] Comment on above: Order Comment: Speci men Type: BLOOD SPECIMENOrdering Facility: [facility] Address: [address] [place] [address] Performed By: #### 5 7021-8 ####[facility] LABCLIA [id number] [facility] [place] [address] [place] Hematocrit (Bld) [Volume fraction] 40.3 % Normal 36.0-46.0 [facility] Comment on above: Order Comment: Speci men Type: BLOOD SPECIMENOrdering Facility: [facility] Address: [address] [place] [address] Performed By: #### 5 7021-8 ####[facility] LABCLIA [id number] [facility] [place] [address] [place] Hemoglobin (Bld) [Mass/Vol] 13.8 g/dL Normal 11.5-15.5 [facility] Comment on above: Order Comment: Speci men Type: BLOOD SPECIMENOrdering Facility: [facility] Address: [address] [place] [address] Performed By: #### 5 7021-8 ####[facility] C[facility] LABCLIA [id number] [facility] [place] [address] [place] Lymphocytes (Bld) [#/Vol] 1.98 10*3/uL Normal 1.00-4.00 [facility] Comment on above: Order Comment: Speci men Type: BLOOD SPECIMENOrdering Facility: [facility] Address: [address] [place] [address] Performed By: #### 5 7021-8 ####[facility] LABCLIA [id number] [facility] [place] [address] [place] Lymphocytes/100 WBC (Bld) 20.3 % Normal [facility] Comment on above: Order Comment: Speci men Type: BLOOD SPECIMENOrdering Facility: [facility] Address: [address] [place] [address] Performed By: #### 5 7021-8 ####[facility] LABCLIA [id number] [facility] [place] [address] [place] MCH (RBC) [Entitic mass] 30.7 pg Normal 26.0-34.0 [facility] Comment on above: Order Comment: Speci men Type: BLOOD SPECIMENOrdering Facility: [facility] Address: [address] [place] [address] Performed By: #### 5 7021-8 ####[facility] LABCLIA [id number] [facility] [place] [address] [place] MCHC (RBC) [Mass/Vol] 34.2 g/dL Normal 30.5-36.0 [facility] Comment on above: Order Comment: Speci men Type: BLOOD SPECIMENOrdering Facility: [facility] Address: [address] [place] [address] Performed By: #### 5 7021-8 ####[facility] LABCLIA [id number] [facility] [place] [address] [place] MCV (RBC) [Entitic vol] 89.6 fL Normal 80.0-100.0 [facility] Comment on above: Order Comment: Speci men Type: BLOOD SPECIMENOrdering Facility: [facility] Address: [address] [place] [address] Performed By: #### 5 7021-8 ####[facility] LABCLIA [id number] [facility], [address] Monocytes (Bld) [#/Vol] 0.70 10*3/uL Normal <0.87 [facility] Comment on above: Order Comment: Speci men Type: BLOOD SPECIMENOrdering Facility: [facility] Address: [address] [place] [address] Performed By: #### 5 7021-8 ####[facility] LABCLIA [id number] [facility], [facility] Monocytes/100 WBC (Bld) 7.2 % Normal [facility] Comment on above: Order Comment: Speci men Type: BLOOD SPECIMENOrdering Facility: [facility] Address: [address] [place] [address] Performed By: #### 5 7021-8 ####[facility] LABCLIA [id number] [facility] [place] [address] [facility] [place] Neutrophils (Bld) [#/Vol] 7.02 10*3/uL Normal 1.45-7.50 [facility] Comment on above: Order Comment: Speci men Type: BLOOD SPECIMENOrdering Facility: [facility] Address: [address] [place] [address] Performed By: #### 5 7021-8 ####[facility] LABCLIA [id number] [place] [address] [place] Neutrophils/100 WBC (Bld) 72.1 % Normal [facility] Comment on above: Order Comment: Speci men Type: BLOOD SPECIMENOrdering Facility: [facility] Address: [address] [place] [address] Performed By: #### 5 7021-8 ####[facility] LABCLIA [id number] [place] [address] [place] Platelet mean volume (Bld) [Entitic vol] 9.7 fL Normal 9.0-12.7 [facility] Comment on above: Order Comment: Speci men Type: BLOOD SPECIMENOrdering Facility: [facility] Address: [address] [place] [address] Performed By: #### 5 7021-8 ####[facility] LABCLIA [id number] [place] [address] [place] Platelets (Bld) [#/Vol] 251 10*3/uL Normal 150-400 [facility] Comment on above: Order Comment: Speci men Type: BLOOD SPECIMENOrdering Facility: [facility] Address: [address] [place] [address] Performed By: #### 5 7021-8 ####[facility] LABCLIA [id number] [place] [address] [place] RBC (Bld) [#/Vol] 4.50 10*6/uL Normal 3.90-5.20 [facility] Comment on above: Order Comment: Speci men Type: BLOOD SPECIMENOrdering Facility: [facility] Address: [address] [place] [address] Performed By: #### 5 7021-8 ####[facility] LABCLIA [id number] [place] [address] [facility] WBC (Bld) [#/Vol] 9.74 10*3/uL Normal 3.70-11.00 [facility] Comment on above: Order Comment: Speci men Type: BLOOD SPECIMENOrdering Facility: [facility] Address: [address] [place], [place] [address] [id number] Performed By: #### 5 7021-8 ####[facility] LABCLIA [id number] [place] [address] [facility] OF [place] CT ABD/PEL W IVCONon 022 CT ABD/PEL W IVCON * * *Final Report* * * DATE OF EXAM: Dec 31 2021 7:25PM [facility] 0530 - CT ABD/PEL W IVCON / [...] Tissues: No significant finding. Lower thorax: Unremarkable. Perfumer (topogram) images: No additional findings. IMPRESSION: No acute abnormality Atrophic left kidney with cortical scarring and suspected small nonobstructing calculi. Findings may be related to chronic reflux disease or infection Hepatic steatosis Civil Clerk: CAROLA Transcribe Date/Time: Dec 31 2021 7:37P Dictated by : DIYA FUENTES MD This examination was interpreted and the report reviewed and electronically signed by: DIYA FUENTES MD on Dec 31 2021 7:42PM EST [id number] N Normal [facility] Comprehensive metabolic 2000 panelon 12-31-2021 Albumin [Mass/Vol] 4.0 g/dL Normal 3.4-5.0 [facility] Comment on above: Order Comment: Speci men Type: BLOOD SPECIMENOrdering Facility: [facility] Address: [address] [place] [address] Performed By: #### 2 4323-8, ####[facility] Cute Attack LABCLIA [id number] [place] [address] [place] ALP [Catalytic activity/Vol] 74 U/L Normal 46-116 [facility] Comment on above: Order Comment: Speci men Type: BLOOD SPECIMENOrdering Facility: [facility] Address: [address] [place] [address] Performed By: #### 2 4323-8, ####[facility] LABCLIA [id number] [place] [address] [place] ALT With P-5'-P [Catalytic activity/Vol] 55 U/L Normal 12-78 [facility] Comment on above: Order Comment: Speci men Type: BLOOD SPECIMENOrdering Facility: [facility] Address: [address] [place] [address] Performed By: #### 2 432-8, ####[facility] LABCLIA [id number] [place] [address] [place] Anion gap [Moles/Vol] 2 mmol/L Low 8-16 [facility] Comment on above: Order Comment: Speci men Type: BLOOD SPECIMENOrdering Facility: [facility] [facility] Address: [address] [place] [address] Performed By: #### 2 8, ####[facility] LABCLIA [id number] [place] [address] [place] AST With P-5'-P [Catalytic activity/Vol] 29 U/L Normal 15-46 [facility] Comment on above: Order Comment: Speci men Type: BLOOD SPECIMENOrdering Facility: [facility] Address: [address] [place] [address] Result Comment: Spec imen slightly hemolyzed. Performed By: #### 2 4323-05, ####[facility] LABCLIA [id number] [place] [address] [place] Bilirubin [Mass/Vol] 0.2 mg/dL Normal 0.2-1.0 [facility] Comment on above: Order Comment: Speci men Type: BLOOD SPECIMENOrdering Facility: [facility] Address: [address] [place], [place] [address] Performed By: #### 2 8, ####[facility] LABCLIA [id number] [place] [address] [place] Calcium [Mass/Vol] 9.1 mg/dL Normal 8.5-10.1 [facility] Comment on above: Order Comment: Speci men Type: BLOOD SPECIMENOrdering Facility: [facility] Address: [address] [place], [place] [address] Performed By: #### 2 4328, ####[facility] LABCLIA [id number] [place] [address] [place] Chloride [Moles/Vol] 100 mmol/L Normal 98-107 [facility] Comment on above: Order Comment: Speci men Type: BLOOD SPECIMENOrdering Facility: [facility] Address: [address] [place] [address] Performed By: #### 2 4323-8, ####[facility] LABCLIA [id number] [facility] [place] [address] [place] CO2 [Moles/Vol] 33 mmol/L High 21-32 [facility] Comment on above: Order Comment: Speci men Type: BLOOD SPECIMENOrdering Facility: [facility] Address: [address] [place] [address] Performed By: #### 2 4323-8, ####[facility] LABCLIA [id number] [place] [address] [place] [facility] Creatinine [Mass/Vol] 0.78 mg/dL Normal 0.51-0.95 [facility] Comment on above: Order Comment: Speci men Type: BLOOD SPECIMENOrdering Facility: [facility] Address: [address] [place] [address] Performed By: #### 2 4323-8, ####[facility] LABCLIA [id number] [facility] [place] [address] [facility] ESTIMATED GLOMERULAR FILTRATION RATE 110 mL/min/1.73m??? Normal >=60 [facility] Comment on above: Order Comment: Speci men Type: BLOOD SPECIMENOrdering Facility: [facility] Address: [address] [place] [address] Result Comment: Tierra mated Glomerular Filtration Rate [...] actual GFR. Performed By: #### 2 4323-8, ####[facility] LABCLIA [id number] [place] [address] [place] Glucose [Mass/Vol] 94 mg/dL Normal 70-99 [facility] Comment on above: Order Comment: Speci men Type: BLOOD SPECIMENOrdering Facility: [facility] Address: [address] [place] [address] Result Comment: The [place] Diabetes Association (ADA) provides guidance for cutoff [...] Standards of Medical Care in Diabetes 2016, [place] Diabetes Association. Diabetes Care. 2016.39(Suppl 1). Performed By: #### 2 4323-8, 36956-0 ####[facility] LABCLIA [id number] [place] [address] [place] Potassium [Moles/Vol] 3.6 mmol/L Normal 3.5-5.1 [facility] Comment on above: Order Comment: Speci men Type: BLOOD SPECIMENOrdering Facility: [facility] Address: [address] [place] [address] Result Comment: Spec imen slightly hemolyzed. Performed By: #### 2 4323-8, ####[facility] LABCLIA [id number] [place] [address] [place] Protein [Mass/Vol] 7.7 g/dL Normal 6.4-8.2 [facility] Comment on above: Order Comment: Speci men Type: BLOOD SPECIMENOrdering Facility: [facility] Address: [address] [place] [address] Performed By: #### 2 4323-8, ####[facility] LABCLIA [id number] [facility] [place] [address] [place] Sodium [Moles/Vol] 135 mmol/L Low 136-145 [facility] Comment on above: Order Comment: Speci men Type: BLOOD SPECIMENOrdering Facility: [facility] Address: [address] [place], [place] [address] Performed By: #### 2 4323-8, ####[facility] LABCLIA [id number] [facility] [place] [address] [place] Urea nitrogen [Mass/Vol] 10 mg/dL Normal 7-18 [facility] Comment on above: Order Comment: Speci men Type: BLOOD SPECIMENOrdering Facility: [facility] Address: [address] [place] [address] Performed By: #### 2 4323-8, ####[facility] LABCLIA [id number] [facility] [place] [address] [facility] ED NOTEon 12-31-2021 ED NOTE HNO ID: [id number] Author: Amy Pena RN Service: Emergency Medicine Author Type: Registered Nurse Type: ED Notes Filed: 12/31/2021 7:03 PM Note Text: Patient resting in room. Patient updated on the plan of care. Bed in low locked position. Call light in reach. Monitoring maintained. Safety and comfort care maintained. Normal [facility] ED NOTE HNO ID: [id number] Author: Amy Pena RN Service: Emergency Medicine Author Type: Registered Nurse Type: ED Notes Filed: 12/31/2021 6:34 PM Note Text: Patient resting in room. Patient updated on the plan of care. Bed in low locked position. Call light in reach. Monitoring maintained. Safety and comfort care maintained. [facility] ED NOTE HNO ID: [id number] Author: Amy Pena RN Service: Emergency Medicine Author Type: Registered Nurse Type: ED Notes Filed: 12/31/2021 5:20 PM Note Text: Patient resting in room. Patient updated on the plan of care. Bed in low locked position. Call light in reach. Monitoring maintained. Safety and comfort care maintained. Normal [facility] ED NOTE HNO ID: [id number] Author: Amy Pena RN Service: Emergency Medicine Author Type: Registered Nurse Type: ED Notes Filed: 12/31/2021 4:55 PM Note Text: Patient updated on the plan of care. Patient medicated per order. Allergies reviewed. Patient verbalized understanding. 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 Emesis x 1 today. Normal BM today. Pt denies dysuria or hematuria. Hx of kidney stone and UTI Normal [facility] ED PROV NOTEon 12-31-2021 ED PROV NOTE HNO ID: [id number] Author: Mary Pereira DO Service: Emergency Medicine [...] edema. Skin (more content not included)... Normal [facility] ED PROV NOTE HNO ID: [id number] Author: Jayde Yeager MD Service: Emergency Medicine [...] 4:28 PM Jayde Yeager MD 12/31/212020 Normal [facility] HCG Preg Ur Qlon 12-31-2021 HCG ( test) Ql (U) Negative Normal Negative [facility] Comment on above: Order Comment: Speci men Type: URINE SPECIMENOrdering Facility: [facility] Address: [address] [place] [address], [place] [address] Result Comment: This test is intended to aid in the early detection of . Very dilute urine samples, as indicated by a low specific gravity, may not contain food service representative levels of hCG. This test detects [...] for . Performed By: #### 2 106-3 ####[facility] LABCLIA [id number] [place] [address] [place] Magnesium SerPl-mCncon 12-31 Magnesium [Mass/Vol] 1.9 mg/dL Normal 1.6-2.3 [facility] Comment on above: Order Comment: Speci men Type: BLOOD SPECIMENOrdering Facility: [facility] Address: [place] [address] Performed By: #### 2 4323-8, 52605-2 ####[facility] LABCLIA [id number] [place] [address] [place] US DOPPLER COMPLETEon [...] to body habitus. 4. No free fluid. Civil Clerk: PSCB Transcribe Date/Time: Dec 31 2021 6:24P Dictated by : KAITY SHAY MD This examination was interpreted and the report reviewed and electronically signed by: KAITY SHAY MD on Dec 31 2021 6:28PM EST [id number] Normal [facility] US FEMALE PELVIS TRANSABD LT Don 12-31-2021 [...] to body habitus. 4. No free fluid. Civil Clerk: CAROLA Transcribe Date/Time: Dec 31 2021 6:24P Dictated by : KAITY SHAY MD This examination was interpreted and the report reviewed and electronically signed by: KAITY SHAY MD on Dec 31 2021 6:28PM EST [id number] N Normal [facility] US FEMALE PELVIS TRANSVAGon 12-31-2021 US FEMALE [...] to body habitus. 4. No free fluid. Civil Clerk: [facility] Transcribe Date/Time: Dec 31 2021 6:24P Dictated by : KAITY SHAY MD This examination was interpreted and the report reviewed and electronically signed by: KAITY SHAY MD on Dec 31 2021 6:28PM EST [id number] N Normal [facility] Urinalysis complete panel (U )on 12-31-2021 Bacteria LM.HPF (Urine sed) [#/Area] Many Abnormal None Seen [facility] Comment on above: Order Comment: Speci men Type: URINE SPECIMENOrdering Facility: [facility] Address: [address] [place] [address] Performed By: #### 2 4356-8 ####[facility] Cute Attack LABCLIA [id number] [address] STATES OF [facility] Bilirubin Ql (U) Negative Normal Negative [facility] Comment on above: Order Comment: Speci men Type: URINE SPECIMENOrdering Facility: [facility] Address: [address] [place] [address] Performed By: #### 2 4356-8 ####[facility] LABCLIA [id number] [place] [id number] [place] Clarity (Unsp spec) Clear Normal Clear [facility] Comment on above: Order Comment: Speci men Type: URINE SPECIMENOrdering Facility: [facility] Address: [address] [place] [address] Performed By: #### 2 4356-8 ####[facility] LABCLIA [id number] [facility] [place] [address] [place] Color (U) Yellow Normal Yellow [facility] Comment on above: Order Comment: Speci men Type: URINE SPECIMENOrdering Facility: [facility] Address: [address] [place] [address] Performed By: #### 2 4356-8 ####[facility] LABCLIA [id number] [facility] [place] [address] [facility] Epithelial cells LM.HPF (Urine sed) [#/Area] Many Normal [facility] Comment on above: Order Comment: Speci men Type: URINE SPECIMENOrdering Facility: [facility] Address: [address] [place] [address] Performed By: #### 2 4356-8 ####[facility] LABCLIA [id number] [facility] [place] [address] [facility] Glucose Test strip (U) [Mass/Vol] Negative Normal Negative [facility] Comment on above: Order Comment: Speci men Type: URINE SPECIMENOrdering Facility: [facility] Address: [address] [place] [address] Performed By: #### 2 4356-8 ####[facility] LABCLIA [id number] [facility] [place] [address] [place] Hemoglobin Ql (U) 2+ Abnormal Negative [facility] Comment on above: Order Comment: Speci men Type: URINE SPECIMENOrdering Facility: [facility] Address: [address] [place] [address] Performed By: #### 2 4356-8 ####[facility] LABCLIA [id number] [facility] [place] [address] [place] Ketones Ql (U) Negative Normal Negative [facility] Comment on above: Order Comment: Speci men Type: URINE SPECIMENOrdering Facility: [facility] Address: [address] [place] [address] Performed By: #### 2 4356-8 ####[facility] LABCLIA [id number] [facility] [place] [address] [facility] [place] Leukocyte esterase Test strip Ql (U) Trace Abnormal Negative [facility] Comment on above: Order Comment: Speci men Type: URINE SPECIMENOrdering Facility: [facility] Address: [address] [place] [address] Performed By: #### 2 4356-8 ####[facility] LABCLIA [id number] [facility] [place] [address] [place] Nitrite Ql (U) Negative Normal Negative [facility] Comment on above: Order Comment: Speci men Type: URINE SPECIMENOrdering Facility: [facility] Address: [address] [place] [address] Performed By: #### 2 4356-8 ####[facility] LABCLIA [id number] [facility] [place] [address] [place] pH (U) 6.0 [pH] Normal 5.0-8.0 [facility] Comment on above: Order Comment: Speci men Type: URINE SPECIMENOrdering Facility: [facility] Address: [address] [place] [address] Performed By: #### 2 4356-8 ####[facility] LABCLIA [id number] [facility] [place] [address] [place] Protein (U) [Mass/Vol] Normal [facility] Comment on above: Order Comment: Speci men Type: URINE SPECIMENOrdering Facility: [facility] Address: [address] [place] [address] Result Comment: Visi ble blood causes falsely elevated results for analyte Protein. Due to this limitation, Protein will not be reported for patients whose urine contains visible blood. Performed By: #### 2 4356-8 ####[facility] LABCLIA [id number] [place] [address] [place] [facility] RBC LM.HPF (Urine sed) [#/Area] 11-25 /HPF Abnormal 0-3 /HPF [facility] Comment on above: Order Comment: Speci men Type: URINE SPECIMENOrdering Facility: [facility] Address: [address] [place] [address] Performed By: #### 2 4356-8 ####[facility] LABCLIA [id number] [place] [address] [facility] Specific gravity (U) [Rel density] >=1.030 High 1.005-1.030 [facility] Comment on above: Order Comment: Speci men Type: URINE SPECIMENOrdering Facility: [facility] Address: [address] [place] [address] Performed By: #### 2 4356-8 ####[facility] LABCLIA [id number] [address] Urobilinogen Ql (U) 0.2 EU/dL Normal 0.2-1.0 EU/dL [facility] Comment on above: Order Comment: Speci men Type: URINE SPECIMENOrdering Facility: [facility] Address: [address] [place] [address] Performed By: #### 2 4356-8 ####[facility] LABCLIA [id number] [place] [id number] [facility] WBC LM.HPF (Urine sed) [#/Area] 6-10 /HPF Abnormal 0-5 /HPF [facility] Comment on above: Order Comment: Speci men Type: URINE SPECIMENOrdering Facility: [facility] Address: [address] [place] [address] Performed By: #### 2 4356-8 ####[facility] LABCLIA [id number] [place] [address] [facility] COVID 19, [facility](RT COLLECT )on 03-17-2021 SARS-CoV-2 (COVID-19) RNA CHICHO+probe Ql (Unsp spec) Not detected Normal Not Detect [facility] Comment on above: Result Comment: Norm al Reference Range: Not Detected Method:(RT-PCR) real-time reverse transcriptase PCR Luminex giftee Instrument *The Food and Drug Administration (FDA) has issued an Emergency Use Authorization (EAU) for the giftee SARS-CoV-2 Assay for the rapid detection of [...] exposure. Performed By: #### L 3400.2405 #### [facility] [address] [place], [address] HAND RIGHT COMPLETEon 2020 HAND RIGHT COMPLETE EXAM: Right hand HISTORY: Pain after shutting a door on the hand on 01/27/2021. TECHNIQUE: 3 views of the right hand were obtained. FINDINGS: There is no evidence of fracture or dislocation. There are no suspicious bone lesions. Soft tissues are normal. IMPRESSION: No acute findings. Normal [facility] BASIC METABOLIC PANELon 01-0 Anion gap [Moles/Vol] 13 mmol/L Normal 10 - 20 [facility] Comment on above: Performed By: #### B MP #### [address] [address] Calcium [Mass/Vol] 9.5 mg/dL Normal 8.6 - 10.3 [facility] Comment on above: Performed By: #### B MP #### [address] [address] Chloride [Moles/Vol] 104 mmol/L Normal 98 - 107 [facility] Comment on above: Performed By: #### B MP #### [address] [address] Creatinine [Mass/Vol] 0.76 mg/dL Normal 0.50 - 1.05 [facility] Comment on above: Performed By: #### B MP #### [address] [address] GFR- AM. >60 Normal >60 [facility] Comment on above: Result Comment: CALC ULATIONS OF ESTIMATED GFR ARE PERFORMED USING THE MDRD STUDY EQUATION FOR THE IDMS-TRACEABLE CREATININE METHODS. CLIN CHEM 2007;53:766-72 Performed By: #### B MP #### [address] [address] GFR-NON AM. >60 Normal >60 [facility] Comment on above: Performed By: #### B MP #### [address] [address] Glucose [Mass/Vol] 88 mg/dL Normal 74 - 99 [facility] Comment on above: Performed By: #### B MP #### [address] [address] HCO3 (Bld) [Moles/Vol] 27 mmol/L Normal 21 - 32 [facility] Comment on above: Performed By: #### B MP #### [address] [address] Potassium [Moles/Vol] 3.8 mmol/L Normal 3.5 - 5.3 [facility] Comment on above: Performed By: #### B MP #### [address] [address] Sodium [Moles/Vol] 140 mmol/L Normal 136 - 145 [facility] Comment on above: Performed By: #### B MP #### [address] [address] Urea nitrogen [Mass/Vol] 11 mg/dL Normal 6 - 23 [facility] Comment on above: Performed By: #### B MP #### [address] [address] CBCon 10-17-2019 Erythrocyte distribution width (RBC) [Ratio] 12.5 % Normal 11.5 - 14.5 [facility] Comment on above: Performed By: #### C BC #### [address] [address] Hematocrit (Bld) [Volume fraction] 42.6 % Normal 36.0 - 46.0 [facility] Comment on above: Performed By: #### C BC #### [address] [address] Hemoglobin (Bld) [Mass/Vol] 14.5 g/dL Normal 12.0 - 16.0 [facility] Comment on above: Performed By: #### C BC #### [address] [address] MCHC (RBC) [Mass/Vol] 34.1 g/dL Normal 32.0 - 36.0 [facility] Comment on above: Performed By: #### C BC #### [address] [address] MCV (RBC) [Entitic vol] 91 fL Normal 80 - 100 [facility] Comment on above: Performed By: #### C BC #### [address] [address] Platelets (Bld) [#/Vol] 270 10*3/uL Normal 150 - 450 [facility] Comment on above: Performed By: #### C BC #### [address] [address] RBC (Bld) [#/Vol] 4.67 x10E12/L Normal 4.00 - 5.20 [facility] Comment on above: Performed By: #### C BC #### [address] [address] WBC (Bld) [#/Vol] 8.2 10*3/uL Normal 4.4 - 11.3 [facility] Comment on above: Performed By: #### C BC #### [address] [address] [address] HEAD WO CONTRASTon 2019 CT HEAD WO CONTRAST Patient Name: BIBI, LUZ STUDY: CT of the head without contrast INDICATION: dizzy/trauma COMPARISON: None ACCESSION NUMBER(S): [id number] ORDERING CLINICIAN: RASHMI FERRERA TECHNIQUE: A CT [...] Electronically signed by: LILI MONTEIRO MD Normal [facility] HCG,URINEon 10-17-2019 Beta HCG ( test) Ql (U) Negative Normal Negative [facility] Comment on above: Performed By: #### H U #### [place] [address] Provider Note - ED v2on Provider Note - ED v2 Provider Note - ED v2: Chart Review: ED NOTES ED NOTES: ====HPI==== 19 year old female comes to the ED with c/o a syncope episode RN MATERNITY. Patient states she believes she has a [...] made to minimize errors. Minor errors in movie writer may be present. Please call if questions. [...] SIGNIFICANT EVENTS: Past Medical History Description:KIDNEY REFLUX REPEAT CHIEF: Is : no(1) Is : no(1) RESULTS/VITAL [...] at 10/17/2019 01:39 Appearance, Urine CLEAR Specific [place], Urine 1.021 pH, Urine 7.0 Protein, Urine [...] SIGNS: T PRBP SpO2O2(LPM) %FiO2 Method 17-Oct-2019 01:27:00-6866554/80 100 room air, no respiratory support 16-Oct-2019 22:16:[id number] /78 99 room air, no respiratory support 16-Oct-2019 22:00:[id number] /78 99 room air, no respiratory support [...] Referenced From Triage - ED 16-Oct-2019 22:16 [facility] Risk Screen - Adult Emergenc yon 10-17-2019 [...] instruction; written material Cultural Considerationsnone Developmental Considerationsnone Tenriism Considerationsnone Other Learnerssignificant other Learning Assessment (Other Learner): Learning Assessment (Other Learner): Other learner availableyes... Learnersignificant other Factors Influencing Readiness to Learninterest in learning Factors that Impact Ability to Learnnone Devices/Methods Used to Communicatenone Learning Preferencesverbal instruction, written material Cultural Considerationsnone Developmental Considerationsnone Tenriism Considerationsnone Pressure Injury/TB/Substance: Pressure Injury: Do you have a coughno Substance Use Current or Former Historynever: Cigarette/Tobacco, e-Cigarette/Vaping, Alcohol, Street Drugs Admission Risk Screen: Significant IndicatorsComplete CAGE: CAGE: Is this an injured patient at a Trauma Center ([facility] [place]/[facility]/[place]/[facility]/[place]): no Electronic Signatures: Lisette Junior (RN) (Signed 16-Oct-2019 22:23) Authored: Preferred Language, Advanced Directives, Family Violence Adult, Learning Assessment (Patient), Learning Assessment (Other Learner), Pressure Injury/TB/Substance, CAGE Last Updated: 16-Oct-2019 22:23 by Lisette Junior (RN) [facility] Triage - EDon 10-17-2019 Triage - ED [...] BMI (kg/m2): 29.674 Calculated BSA (m2) 1.75 [place] Coma Scale: Best Eye Response: (E4) spontaneous Best Motor Response: (M6) obeys commands Best Verbal Response: (V5) oriented Amador Score: 15 Cough lasting greater than 3 weeks: no Patient immunocompromised related to: N/A Travel outside of [facility]: no Allergies: yes Last menstrual period: 04-Oct-2019 [...] and spouse/significant other Language: Spoken Language Preferred: [place] Reading Language Preferred: [place] 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 UA MICROSCOPICon 10-17-2019 BACTERIA 1+ /HPF Abnormal [facility] Comment on above: Performed By: #### U AMIC #### [place] [address] MUCUS 1+ /LPF Normal [facility] Comment on above: Performed By: #### U AMIC #### [place] [address] RBC (Bld) [#/Vol] 0-5 Normal 0-5 [facility] Comment on above: Performed By: #### U AMIC #### [place] [address] SQUAMOUS EPITH. CELLS 1+ /HPF Normal [facility] Comment on above: Performed By: #### U AMIC #### [place] [address] TRANSITIONAL EPITH.CELLS Negative Normal [facility] Comment on above: Performed By: #### U AMIC #### [place] [address] WBC (Bld) [#/Vol] 5-20 Abnormal 0-5 [facility] Comment on above: Performed By: #### U AMIC #### [place] [address] URINALYSISon 10-17-2019 Appearance (U) CLEAR Normal CLEAR [facility] Comment on above: Result Comment: This is a corrected result. Previous value was HAZY, verified at 10/17/2019 01:39 Performed By: #### U A #### [address] [address] Color (U) YELLOW Normal STRAW,YELLOW [facility] Comment on above: Result Comment: This is a corrected result. Previous value was Red, verified at 10/17/2019 01:39 Performed By: #### U A #### [address] [address] [address] Bilirubin (U) [Mass/Vol] Negative Normal NEGATIVE [facility] Comment on above: Performed By: #### U A #### [place] [id number] BLOOD SMALL(1+) Abnormal NEGATIVE [facility] Comment on above: Performed By: #### U A #### [place] [id number] Glucose [Mass/Vol] Negative Normal NEGATIVE [facility] Comment on above: Performed By: #### U A #### [place] [address] Ketones Ql (U) Negative Normal NEGATIVE [facility] Comment on above: Performed By: #### U A #### [place] [address] Leukocyte esterase Test strip Ql (U) TRACE Abnormal NEGATIVE [facility] Comment on above: Performed By: #### U A #### [address] [address] Nitrite Ql (U) Negative Normal NEGATIVE [facility] Comment on above: Performed By: #### U A #### [place] [id number] pH (Bld) 7.0 Normal 5.0 - 8.0 [facility] Comment on above: Performed By: #### U A #### [place] [id number] Protein (U) [Mass/Vol] Negative Normal NEGATIVE [facility] Comment on above: Performed By: #### U A #### [place] [id number] Specific gravity (U) [Rel density] 1.021 Normal 1.005 - 1.035 [facility] Comment on above: Performed By: #### U A #### [address] [address] Urobilinogen Qn (U) <2.0 Normal 0.0 - 1.9 [facility] Comment on above: Performed By: #### U A #### [address] [address] URINE CULTURE,BACTERIALon URINE CULTURE,BACTERIAL TEST URINE CULTURE,BACTERIAL WAS CANCELLED, 10/19/2019 16:21 PATIENT DISCHARGED. PATIENT: LUZ MTZ LOCATION: [facility]#: [id number] : 89 AGE: SEX: F ORDERED BY: RASHMI FERRERA SOURCE: URINE COLLECTED: 10/17/19 02:24 ANTIBIOTICS AT JAMIE.: RECEIVED : SITE: Clean Catch/Voided R E S U L T S URINE CULTURE,BACTERIAL CANCELLED 10/19/19 16:[address] [facility] Comment on above: Performed By: #### U [facility] #### [facility] [address] [place] [address] XR Foot 3+ Views Righton XR Foot 3+ Views Right Exam Date/Time: 04/28/2019 13:58 EDT Reason for Exam: Pain, Traumatic Report STUDY: XR Foot 3+ Views Right;; 04/28/2019 1:58 pm INDICATION: Pain, Traumatic. COMPARISON: None. ACCESSION NUMBER(S): [id number] ORDERING CLINICIAN: Alex Grubbs FINDINGS: No acute fracture or malalignment. No radiopaque foreign body. IMPRESSION: No acute osseous abnormality FINAL REPORT Dictated: 04/28/2019 2:30 pm Nancy Mills MD Signed (Electronic Signature): 04/28/2019 2:30 pm Signed by: Nancy Mills MD Technologist: JOHNSON Normal [facility] ABO/Rh Echoon 12-25-2018 ABO/Rh E Interp... Positive [facility] Comment on above: Performed By: #### 2 [id number] #### [facility] [address] [place] [address] BhCG Quanton 12-25-2018 Beta hCG Qnt <0.6 Normal 0.0-2.9 [facility] Comment on above: Performed By: #### 2 072959 #### [facility] [address] [place] [address] UA Completeon 12-25-2018 Color (U) Yellow Normal Yellow [facility] Comment on above: Performed By: #### 2 823095 #### [facility] [address] [place] [address] Glucose (U) [Mass/Vol] Negative Normal Negative [facility] Comment on above: Performed By: #### 2 731184 #### [facility] [place] [address] Ketones Ql (U) Negative Normal Negative [facility] Comment on above: Performed By: #### 2 830214 #### [facility] [address] [place] [address] RBC (U) [#/Vol] /uL Abnormal 0-3 [facility] Comment on above: Performed By: #### 2 923429 #### [facility] [address] [place] [address] UA Blood 3+ Normal Negative [facility] Comment on above: Performed By: #### 2 418174 #### [facility] [address] [place] [address] UA Bacteria Trace Abnormal None [facility] Comment on above: Performed By: #### 2 883833 #### [facility] [address] [place] [address] UA Clarity Clear Normal Clear [facility] Comment on above: Performed By: #### 2 588392 #### [facility] [address] [place] [address] UA Leuk Est Negative Normal Negative [facility] Comment on above: Performed By: #### 2 145762 #### [facility] [address] [place] [address] UA Mucous Trace Abnormal Trace [facility] Comment on above: Performed By: #### 2 856468 #### [facility] [address] [place] [address] UA Nitrite Negative Normal Negative [facility] Comment on above: Performed By: #### 2 114359 #### [facility] [address] [place] [address] UA pH 8.0 Normal 4.6-8.0 [facility] Comment on above: Performed By: #### 2 703530 #### [facility] [address] [place] [address] UA Protein Negative Normal Negative [facility] Comment on above: Performed By: #### 2 153129 #### [facility] [address] [place] [address] UA Spec Grav 1.012 Normal 1.003-1.030 [facility] Comment on above: Performed By: #### 2 677641 #### [facility] [address] [place] [address] UA Squam Epithelial 0-5 Normal 0-5 [facility] Comment on above: Performed By: #### 2 257175 #### [facility] [address] [place] [address] UA Urobilinogen Negative Normal [facility] Comment on above: Result Comment: Due to a manufacturing issue, low positive urobilinogen results may be fasely positive. Correlate with urine bilirubin and additional clinical/laboratory findings to assess the risk of hemolytic anemia or liver disease. If clinically indicated, repeat testing with an alternate method is available by contacting the laboratory within 24 hours. Performed By: #### 2 [id number] #### [facility] [address] [place] [address] UA WBC 5-10 Abnormal 0-5 [facility] Comment on above: Performed By: #### 2 822963 #### [facility] [address] [place] [address] Urobilinogen Qn (U) Negative Normal Negative [facility] Comment on above: Performed By: #### 2 540158 #### [facility] [address] [place] [address] C Urineon 09-05-2018 C Urine Final Report: Light growth of Normal skin den isolated Normal [facility] Comment on above: Performed By: #### 2 837919 #### [facility] [address] [place] [address] .Manual Abson 09-03-2018 Basophil Abs Man 0.0 10x3/ Normal 0.0-0.2 [facility] Comment on above: Order Comment: Order Added by Discern Expert. Performed By: #### 3 [id number] #### [facility] [address] [place] [address] Eos Abs Man 0.0 10x3/ Normal 0.0-0.5 [facility] Comment on above: Order Comment: Order Added by Discern Expert. Performed By: #### 3 [id number] #### [facility] [address] [place] [address] Lymph Abs Man 0.5 10x3/ Low 1.2-3.4 [facility] Comment on above: Order Comment: Order Added by Discern Expert. Performed By: #### 3 [id number] #### [facility] [address] [place] [address] [place] Abs Man 0.4 10x3/ Normal 0.0-0.7 [facility] Comment on above: Order Comment: Order Added by Discern Expert. Performed By: #### 3 [id number] #### [facility] [address] [place] [address] Segs Abs Man 7.8 10x3/ High 1.4-6.5 [facility] Comment on above: Order Comment: Order Added by Discern Expert. Performed By: #### 3 [id number] #### [facility] [address] [place] [id number] BMPon 09-03-2018 Anion gap [Moles/Vol] 14 mmol/L Normal 10-20 [facility] Comment on above: Performed By: #### 2 117852 #### [facility] [address] [place] [id number] Calcium [Mass/Vol] 8.8 mg/dL Normal 8.5-10.7 [facility] Comment on above: Performed By: #### 2 090172 #### [facility] [place] [id number] Chloride [Moles/Vol] 102 mmol/L Normal 98-107 [facility] Comment on above: Performed By: #### 2 190017 #### [facility] [address] [place] [address] CO2 [Moles/Vol] 24.0 mmol/L Normal 21.0-32.0 [facility] Comment on above: Performed By: #### 2 039717 #### [facility] [address] [place] [address] Creatinine [Mass/Vol] 0.8 mg/dL Normal 0.5-1.1 [facility] Comment on above: Performed By: #### 2 598306 #### [facility] [address] [place] [address] Glucose [Mass/Vol] 100 mg/dL High 70-99 [facility] Comment on above: Performed By: #### 2 557886 #### [facility] [address] [place] [address] Potassium [Moles/Vol] 3.2 mmol/L Low 3.5-5.3 [facility] Comment on above: Performed By: #### 2 406150 #### [facility] [address] [place] [address] Sodium [Moles/Vol] 137 mmol/L Normal 136-145 [facility] Comment on above: Performed By: #### 2 438107 #### [facility] [address] [place] [address] Urea nitrogen [Mass/Vol] 11 mg/dL Normal 6-23 [facility] Comment on above: Performed By: #### 2 527308 #### [facility] [address] [place] [address] Urea nitrogen/Creatinine [Mass ratio] 13.8 ratio Normal 5.4-30.0 [facility] Comment on above: Performed By: #### 2 207086 #### [facility] [address] [place] [address] CBC w/ Auto Diffon 8 Erythrocyte distribution width (RBC) [Ratio] 13.0 % Normal 11.5-14.5 [facility] Comment on above: Performed By: #### 2 732110 #### [facility] [address] [place] [address] Hematocrit (Bld) [Volume fraction] 37.2 % Normal 36.0-48.0 [facility] Comment on above: Performed By: #### 2 374381 #### [facility] [address] [place] [address] Hemoglobin (Bld) [Mass/Vol] 12.7 g/dL Normal 12.0-16.0 [facility] Comment on above: Performed By: #### 2 565785 #### [facility] [address] [place] [address] MCH (RBC) [Entitic mass] 31.2 pg High 27.0-31.0 [facility] Comment on above: Performed By: #### 2 366096 #### [facility] [address] [place] [address] MCHC (RBC) [Mass/Vol] 34.2 g/dL Normal 33.0-37.0 [facility] Comment on above: Performed By: #### 2 959385 #### [facility] [address] [place] [address] MCV (RBC) [Entitic vol] 91.4 fL Normal 78.0-100.0 [facility] Comment on above: Performed By: #### 2 519975 #### [facility] [address] [place] [address] Platelet mean volume (Bld) [Entitic vol] 8.2 fL Normal 7.4-11.0 [facility] Comment on above: Performed By: #### 2 475831 #### [facility] [address] [place] [address] Platelets (Bld) [#/Vol] 201 E3/mcL Normal 130-400 [facility] Comment on above: Performed By: #### 2 383518 #### [facility] [address] [place] [address] RBC (Bld) [#/Vol] 4.07 E6/mcL Normal 3.90-5.40 [facility] Comment on above: Performed By: #### 2 262040 #### [facility] [address] [place] [address] WBC (Bld) [#/Vol] 8.9 E3/mcL Normal 3.6-11.0 [facility] Comment on above: Performed By: #### 2 200014 #### [facility] [address] [place] [address] CT Abdomen/Pelvis w/ Contras ton 09-03-2018 CT Abdomen/Pelvis w/ Contrast Exam Date/Time: 09/03/2018 21:35 EST Reason for Exam: Pain Report STUDY: CT Abdomen/Pelvis w/ Contrast; 09/03/2018 9:35 pm INDICATION: Pain. Pain COMPARISON: No comparison available ACCESSION NUMBER(S): [id number] ORDERING CLINICIAN: Miles Horn TECHNIQUE: CT of [...] by: Joaquin Lobo MD Technologist: JOHN, Paul [facility] Hep Func Panelon 09-03-2018 Albumin [Mass/Vol] 4.3 g/dL Normal 3.4-5.0 [facility] Comment on above: Performed By: #### 2 738635 #### [place] [address] [place] [address] Albumin/Globulin [Mass ratio] 1.7 {ratio} Normal 1.1-1.9 [facility] Comment on above: Performed By: #### 2 435445 #### [facility] [address] [place] [address] Alk Phos 59 Int._Unit/L Normal 33-139 [facility] Comment on above: Performed By: #### 2 313158 #### [facility] [address] [place] [address] ALT [Catalytic activity/Vol] 18 Int._Unit/L Normal 7-45 [facility] Comment on above: Performed By: #### 2 567408 #### [facility] [address] [place] [address] AST [Catalytic activity/Vol] 18 Int._Unit/L Normal 9-39 [facility] Comment on above: Performed By: #### 2 026218 #### [facility] [address] [place] [address] Bili Direct 0.16 mg/dL Normal 0.00-0.30 [facility] Comment on above: Performed By: #### 2 485407 #### [facility] [address] [place] [address] Bili Indirect 0.7 Normal [facility] Comment on above: Performed By: #### 2 762074 #### [facility] [address] [place] [address] Bili Total 0.9 mg/dL Normal 0.0-1.2 [facility] Comment on above: Performed By: #### 2 413802 #### [facility] [address] [place] [address] Globulin (S) [Mass/Vol] 3.0 g/dL Normal 2.0-4.0 [facility] Comment on above: Performed By: #### 2 418030 #### [place] [address] [place] [address] Protein [Mass/Vol] 6.8 g/dL Normal 6.4-8.2 [facility] Comment on above: Performed By: #### 2 049906 #### [facility] [address] [place] [address] Influenza A&B Agon 8 Influenzae A Ag Negative Normal Negative [facility] Comment on above: Performed By: #### 2 505292 #### [facility] [address] Influenzae B Ag Negative Normal Negative [facility] Comment on above: Performed By: #### 2 686510 #### [facility] [address] Lactic Acidon 09-03-2018 Lactate [Moles/Vol] 0.8 mmol/L Normal 0.4-2.0 [facility] Comment on above: Performed By: #### 2 042402 #### [facility] [address] Lipase Levelon 09-03-2018 Lipase Lvl 12 Int._Unit/L Normal 9-82 [facility] Comment on above: Performed By: #### 2 155054 #### [facility] [address] Manual Diffon 09-03-2018 Band form neutrophils/100 WBC (Bld) 1 Normal 0-1 [facility] Comment on above: Order Comment: Order Added by Discern Expert. Performed By: #### 2 984545 #### [facility] [address] [place] [address] Basophil Man 0 % Normal 0-1 [facility] Comment on above: Order Comment: Order Added by Discern Expert. Performed By: #### 2 623072 #### [facility] [address] [place] [address] Eosinophils/100 WBC (Bld) 0 % Normal 0-5 [facility] Comment on above: Order Comment: Order Added by Discern Expert. Performed By: #### 2 290513 #### [facility] [address] [place] [address] Lymphocytes/100 WBC (Bld) 6 % Low 14-48 [facility] Comment on above: Order Comment: Order Added by Discern Expert. Performed By: #### 2 882028 #### [facility] [address] [place] [address] Monocyte Man 5 % Normal 1-11 [facility] Comment on above: Order Comment: Order Added by Discern Expert. Performed By: #### 2 154842 #### [facility] [address] [place] [address] RBC morphology finding Nom (Bld) NORMAL Normal [facility] Comment on above: Order Comment: Order Added by Discern Expert. Performed By: #### 2 992378 #### [facility] [address] [place] [address] Segs Man 88 % High 37-75 [facility] Comment on above: Order Comment: Order Added by Discern Expert. Performed By: #### 2 197935 #### [facility] [address] [place] [address] TSHon 09-03-2018 TSH Qn 0.89 mcIU/mL Normal 0.30-5.60 [facility] Comment on above: Order Comment: With T4fr Reflex Performed By: #### 2 192161 #### [facility] [address] [place] [address] U BhCG Qlton 09-03-2018 HCG.beta subunit Qn Negative Normal Neg [facility] Comment on above: Performed By: #### 2 668433 #### [facility] [address] [place] [address] UA Completeon 09-03-2018 Color (U) Yellow Normal Yellow [facility] Comment on above: Order Comment: Strai ght Cath as needed Performed By: #### 2 216744 #### [facility] [address] [place] [address] Glucose (U) [Mass/Vol] Negative Normal Negative [facility] Comment on above: Order Comment: Strai ght Cath as needed Performed By: #### 2 631045 #### [facility] [address] [place] [address] Ketones Ql (U) 1+ Abnormal Negative [facility] Comment on above: Order Comment: Strai ght Cath as needed Performed By: #### 2 170379 #### [facility] [address] [place] [address] RBC (U) [#/Vol] 10-20 Abnormal 0-3 [facility] Comment on above: Order Comment: Strai ght Cath as needed Performed By: #### 2 299304 #### [facility] [address] [place] [address] UA Blood 1+ Abnormal Negative [facility] Comment on above: Order Comment: Strai ght Cath as needed Performed By: #### 2 563589 #### [facility] [address] [place] [address] UA Ascorbic Acid 40 mg/dL High <=19 [facility] Comment on above: Order Comment: Strai ght Cath as needed Performed By: #### 2 793959 #### [facility] [address] [place] [address] UA Clarity SltCloudy Abnormal Clear [facility] Comment on above: Order Comment: Strai ght Cath as needed Performed By: #### 2 230873 #### [facility] [address] [place] [address] UA Leuk Est 1+ Abnormal Negative [facility] Comment on above: Order Comment: Strai ght Cath as needed Performed By: #### 2 849068 #### [facility] [address] [place] [address] UA Mucous Trace Abnormal Trace [facility] Comment on above: Order Comment: Strai ght Cath as needed Performed By: #### 2 079816 #### [facility] [address] [place] [address] UA Nitrite Negative Normal Negative [facility] Comment on above: Order Comment: Strai ght Cath as needed Performed By: #### 2 432543 #### [facility] [address] [place] [address] UA pH 7.0 Normal 4.6-8.0 [facility] Comment on above: Order Comment: Strai ght Cath as needed Performed By: #### 2 504146 #### [facility] [address] [place] [address] UA Protein Negative Normal Negative [facility] Comment on above: Order Comment: Strai ght Cath as needed Performed By: #### 2 858833 #### [facility] [address] [place] [address] UA Spec Grav 1.015 Normal 1.003-1.030 [facility] Comment on above: Order Comment: Strai ght Cath as needed Performed By: #### 2 597378 #### [facility] [address] [place] [address] UA Squam Epithelial 0-5 Normal 0-5 [facility] Comment on above: Order Comment: Strai ght Cath as needed Performed By: #### 2 188990 #### [facility] [address] [place] [address] UA Urobilinogen Negative Normal [facility] Comment on above: Order Comment: Strai ght [...] within 24 hours. Performed By: #### 2 512440 #### [facility] [address] [place] [address] UA WBC 20-50 Abnormal 0-5 [facility] Comment on above: Order Comment: Strai ght Cath as needed Performed By: #### 2 378434 #### [facility] [address] [place] [address] Urobilinogen Qn (U) Negative Normal Negative [facility] Comment on above: Order Comment: Strai ght Cath as needed Performed By: #### 2 859767 #### [facility] [address] [place] [address] eGFRon 09-03-2018 GFR/1.73 sq M predicted among non-blacks MDRD (S/P/Bld) [Vol rate/Area] mL/min/{1.73_m2} Normal [facility] Comment on above: Order Comment: Order added by Discern Expert. Performed By: #### 1 [id number] #### [facility] [address] [place] [address] zzplt morphon 09-03-2018 Platelet morphology finding Nom (Bld) NORMAL Normal [facility] Comment on above: Performed By: #### 9 [id number] #### [facility] [address] [place] [address] Platelets (Bld) [#/Vol] NORMAL Normal [facility] Comment on above: Performed By: #### 9 [id number] #### [facility] [address] [place] [address] Vital Signs Date Time Vital Sign Value Performing Clinician Facility 04-02-2023 16:00-0400 Body temperature 97.88 [degF] SUNIL GRAHAM MD [facility] 04-02-2023 16:00-0400 Diastolic Blood Pressure Non-Invasive 66 1 SUNIL GRAHAM MD [facility] 04-02-2023 16:00-0400 Heart rate 77 /min SUNIL GRAHAM MD [facility] 04-02-2023 16:00-0400 Respiratory rate 18 /min SUNIL GRAHAM MD [facility] 04-02-2023 16:00-0400 Systolic Blood Pressure Non-Invasive 110 1 SUNIL GRAHAM MD [facility] 04-02-2023 10:00-0400 Body temperature 97.7 [degF] SUNIL GRAHAM MD [facility] 04-02-2023 10:00-0400 Diastolic Blood Pressure Non-Invasive 48 1 SUNIL GRAHAM MD [facility] 04-02-2023 10:00-0400 Heart rate 81 /min SUNIL GRAHAM MD [facility] 04-02-2023 10:00-0400 Systolic Blood Pressure Non-Invasive 97 1 SUNIL GRAHAM MD [facility] 04-02-2023 00:31-0400 Body temperature 97.88 [degF] SUNIL GRAHAM MD [facility] 04-02-2023 00:31-0400 Diastolic Blood Pressure Non-Invasive 59 1 SUNIL GARHAM MD [facility] 04-02-2023 00:31-0400 Heart rate 68 /min SUNIL GRAHAM MD [facility] 04-02-2023 00:31-0400 Reason For Taking VItal Signs SUNIL GRAHAM MD [facility] 04-02-2023 00:31-0400 Respiratory rate 16 /min SUNIL RGAHAM MD [facility] 04-02-2023 00:31-0400 Systolic Blood Pressure Non-Invasive 113 1 SUNIL GRAHAM MD [facility] 04-01-2023 16:20-0400 Reason For Taking VItal Signs SUNIL GRAHAM MD [facility] 04-01-2023 08:41-0400 Reason For Taking VItal Signs SUNIL GRAHAM MD [facility] 03-31-2023 23:30-0400 Body temperature 97.88 [degF] SUNIL GRAHAM MD [facility] 03-31-2023 15:25-0400 Body temperature 98.42 [degF] SUNIL GRAHAM MD [facility] 03-31-2023 08:36-0400 Body temperature 98.24 [degF] SUNIL GRAHAM MD [facility] 03-30-2023 07:49-0400 Body height 155 cm SUNIL GRAHAM MD [facility] 03-30-2023 07:49-0400 Body weight 78 kg SUNIL GRAHAM MD [facility] 03-30-2023 07:49-0400 Body weight 32.47 kg/m2 SUNIL GRAHAM MD [facility] 03-07-2023 20:03-0400 Body temperature 98.6 [degF] MARTINEZ NÚÑEZ MD [facility] 03-07-2023 20:03-0400 Diastolic Blood Pressure Non-Invasive 69 1 MARTINEZ NÚÑEZ MD [facility] 03-07-2023 20:03-0400 Heart rate 91 /min MARTINEZ NÚÑEZ MD [facility] 03-07-2023 20:03-0400 Respiratory rate 18 /min MARTINEZ NÚÑEZ MD [facility] 03-07-2023 20:03-0400 Systolic Blood Pressure Non-Invasive 115 1 MARTINEZ NÚÑEZ MD [facility] 03-07-2023 20:02-0400 Body height 155 cm MARTINEZ NÚÑEZ MD [facility] 03-07-2023 20:02-0400 Body weight 79.5 kg MARTINEZ NÚÑEZ MD [facility] 03-07-2023 20:02-0400 Body weight 33.09 kg/m2 MARTINEZ NÚÑEZ MD [facility] 03-06-2023 17:39-0400 Body temperature 98.06 [degF] MARTINEZ NÚÑEZ MD [facility] 03-06-2023 17:39-0400 Diastolic Blood Pressure Non-Invasive 76 1 MARTINEZ NÚÑEZ MD [facility] 03-06-2023 17:39-0400 Heart rate 125 /min MARTINEZ NÚÑEZ MD [facility] 03-06-2023 17:39-0400 Systolic Blood Pressure Non-Invasive 113 1 MARTINEZ NÚÑEZ MD [facility] 03-06-2023 17:37-0400 Body height 155 cm MARTINEZ NÚÑEZ MD [facility] 03-06-2023 17:37-0400 Body weight 79.5 kg MARTINEZ NÚÑEZ MD [facility] 03-06-2023 17:37-0400 Body weight 33.09 kg/m2 MARTINEZ NÚÑEZ MD [facility] 01-26-2023 03:20-0400 Diastolic Blood Pressure Non-Invasive 67 1 MARTINEZ NÚÑEZ MD [facility] 01-26-2023 03:20-0400 Heart rate 107 /min MARTINEZ NÚÑEZ MD [facility] 01-26-2023 03:20-0400 Systolic Blood Pressure Non-Invasive 113 1 MARTINEZ NÚÑEZ MD [facility] 01-26-2023 02:34-0400 Diastolic Blood Pressure Non-Invasive 71 1 MARTINEZ NÚÑEZ MD [facility] 01-26-2023 02:34-0400 Heart rate 95 /min MARTINEZ NÚÑEZ MD [facility] 01-26-2023 02:34-0400 Systolic Blood Pressure Non-Invasive 116 1 MARTINEZ NÚÑEZ MD [facility] 01-26-2023 02:15-0400 Body temperature 98.24 [degF] MARTINEZ NÚÑEZ MD [facility] 01-26-2023 01:46-0400 Diastolic Blood Pressure Non-Invasive 42 1 MARTINEZ NÚÑEZ MD [facility] 01-26-2023 01:46-0400 Heart rate 101 /min MARTINEZ NÚÑEZ MD [facility] 01-26-2023 01:46-0400 Systolic Blood Pressure Non-Invasive 114 1 MARTINEZ NÚÑEZ MD [facility] 01-26-2023 01:16-0400 Respiratory rate 16 /min MARTINEZ NÚÑEZ MD [facility] 01-26-2023 00:59-0400 Body height 155 cm MARTINEZ NÚÑEZ MD [facility] 01-26-2023 00:59-0400 Body weight 77.3 kg MARTINEZ NÚÑEZ MD [facility] 01-26-2023 00:59-0400 Body weight 32.17 kg/m2 MARTINEZ NÚÑEZ MD [facility] 11-18-2022 12:08-0500 Body temperature 98.24 [degF] SUNIL GRAHAM MD [facility] 11-18-2022 12:08-0500 Diastolic Blood Pressure Non-Invasive 82 1 SUNIL GRAHAM MD [facility] 11-18-2022 12:08-0500 Heart rate 108 /min SUNIL GRAHAM MD [facility] 11-18-2022 12:08-0500 Respiratory rate 18 /min SUNIL GRAHAM MD [facility] 11-18-2022 12:08-0500 Systolic Blood Pressure Non-Invasive 103 1 SUNIL GRAHAM MD [facility] 10-14-2022 11:01-0500 Body weight 80.06 kg Gretel Quintana MD Work Phone: [facility] 10-14-2022 11:01-0500 Diastolic blood pressure 56 mm[Hg] Gretel Quintana MD Work Phone: [facility] 10-14-2022 11:01-0500 Respiratory rate 18 /min Gretel Quintana MD Work Phone: [facility] 10-14-2022 11:01-0500 Systolic blood pressure 110 mm[Hg] Gretel Quintana MD Work Phone: [facility] 08-19-2022 13:06-0500 Body weight 85.5 kg Braulio Hollingsworth MD Work Phone: [facility] 08-19-2022 13:06-0500 Diastolic blood pressure 82 mm[Hg] Braulio Hollingsworth MD Work Phone: [facility] 08-19-2022 13:06-0500 Systolic blood pressure 102 mm[Hg] Braulio Hollingsworth MD Work Phone: [facility] 08-09-2022 18:09-0400 Diastolic blood pressure 74 mm[Hg] No Primary Care Physician [facility] Work Phone: 08-09-2022 18:09-0400 Heart rate 107 /min No Primary Care Physician [facility] Work Phone: 08-09-2022 18:09-0400 Respiratory rate 18 /min No Primary Care Physician [facility] Work Phone: 08-09-2022 18:09-0400 SaO2% (BldA) [Mass fraction] 94 % No Primary Care Physician [facility] Work Phone: 08-09-2022 18:09-0400 Systolic blood pressure 120 mm[Hg] No Primary Care Physician [facility] Work Phone: 08-09-2022 13:51-0400 Body height 154.94 cm No Primary Care Physician [facility] Work Phone: 08-09-2022 13:51-0400 Body mass index (BMI) [Ratio] 35.9 kg/m2 No Primary Care Physician [facility] Work Phone: 08-09-2022 13:51-0400 Body temperature 98.2 [degF] No Primary Care Physician [facility] Work Phone: 08-09-2022 13:51-0400 Body weight 86.4 kg No Primary Care Physician [facility] Work Phone: 08-04-2022 13:54-0400 Diastolic blood pressure 76 mm[Hg] Melania Mitchell MD Work Phone: [facility] 08-04-2022 13:54-0400 Heart rate 100 /min Melania Mitchell MD Work Phone: [facility] 08-04-2022 13:54-0400 Respiratory rate 16 /min Melania Mitchell MD Work Phone: [facility] 08-04-2022 13:54-0400 SaO2% (BldA) [Mass fraction] 98 % Melania Mitchell MD Work Phone: [facility] 08-04-2022 13:54-0400 Systolic blood pressure 102 mm[Hg] Melania Mitchell MD Work Phone: [facility] 08-04-2022 10:48-0400 Body height 154.9 cm Melania Mitchell MD Work Phone: [facility] 08-04-2022 10:48-0400 Body mass index (BMI) [Ratio] 30.23 kg/m2 Melania Mitchell MD Work Phone: [facility] 08-04-2022 10:48-0400 Body temperature 98.2 [degF] Melania Mitchell MD Work Phone: [facility] 08-04-2022 10:48-0400 Body weight 72.58 kg Melania Mitchell MD Work Phone: [facility] 07-08-2022 15:30-0400 Body temperature 98.2 [degF] No Primary Care Physician [facility] Work Phone: 07-08-2022 15:30-0400 Diastolic blood pressure 78 mm[Hg] No Primary Care Physician [facility] Work Phone: 07-08-2022 15:30-0400 Heart rate 89 /min No Primary Care Physician [facility] Work Phone: 07-08-2022 15:30-0400 Respiratory rate 14 /min No Primary Care Physician [facility] Work Phone: 07-08-2022 15:30-0400 SaO2% (BldA) [Mass fraction] 98 % No Primary Care Physician [facility] Work Phone: 07-08-2022 15:30-0400 Systolic blood pressure 124 mm[Hg] No Primary Care Physician [facility] Work Phone: 06-30-2022 00:36-0400 Diastolic blood pressure 76 mm[Hg] No Primary Care Physician [facility] Work Phone: 06-30-2022 00:36-0400 Heart rate 79 /min No Primary Care Physician [facility] Work Phone: 06-30-2022 00:36-0400 Respiratory rate 16 /min No Primary Care Physician [facility] Work Phone: 06-30-2022 00:36-0400 SaO2% (BldA) [Mass fraction] 96 % No Primary Care Physician [facility] Work Phone: 06-30-2022 00:36-0400 Systolic blood pressure 113 mm[Hg] No Primary Care Physician [facility] Work Phone: 06-29-2022 23:48-0400 Body temperature 98.9 [degF] No Primary Care Physician [facility] Work Phone: 06-29-2022 18:00-0400 Body mass index (BMI) [Ratio] 33 kg/m2 No Primary Care Physician [facility] Work Phone: 06-29-2022 18:00-0400 Body weight 79.37 kg No Primary Care Physician [facility] Work Phone: Encounters Encounter Date Encounter Type Care Provider Facility Start: 08-01-2025 ambulatory No Primary Care Physici an Facility:[facility] Start: 07-09-2025 End: 07-09-2025 ambulatory No Primary Care Physician Facility:[facility] Start: 07-09-2025 End: 07-09-2025 ambulatory No Primary Care Physician Facility:[facility] Start: 07-03-2025 End: 07-03-2025 ambulatory No Primary Care Physician Facility[facility] Start: 07-03-2025 End: 07-03-2025 ambulatory No Primary Care Physician Facility:[facility] Start: 06-26-2025 End: 06-26-2025 ambulatory RAMA [facility] Start: 06-20-2025 End: 06-20-2025 ambulatory [facility] Start: 06-06-2025 End: 06-06-2025 ambulatory Rama Stuart Facility[facility] Start: 05-30-2025 End: 05-30-2025 ambulatory No Primary Care Physician Facility:[facility] Start: 05-30-2025 End: 05-30-2025 ambulatory Rama Stuart Facility:[facility] Start: 05-14-2025 End: 05-14-2025 ambulatory Rama Stuart Facility:[facility] Start: 05-14-2025 End: 05-14-2025 ambulatory No Primary Care Physician Facility:[facility] Start: 05-07-2025 End: 05-07-2025 ambulatory No Primary Care Physician Facility[facility] Start: 05-07-2025 End: 05-07-2025 ambulatory No Primary Care Physician Facility:[facility] Start: 04-09-2025 End: 04-09-2025 ambulatory No Primary Care Physician Facility[facility] Start: 04-09-2025 End: 04-09-2025 ambulatory Remedios Jose [employer] Facility:[facility] Start: 03-15-2025 End: 03-15-2025 ambulatory Remedios Jose [employer]ER Facility:[facility] Start: 03-13-2025 End: 03-13-2025 ambulatory No Primary Care Physician Facility:[facility] Start: 03-13-2025 End: 03-13-2025 ambulatory Remedios Sachse HEAVY CLE[employer]ER Facility:[facility] Start: 01-02-2025 End: 01-02-2025 Emergency department patient visit Mendez Gardner Facility:[facility] Start: 08-03-2024 End: 08-18-2024 ambulatory KIRSTEN MAST INCLUSION TEACHER[employer] Facility:[facility] Start: 08-03-2024 End: 08-18-2024 Physical therapy management KIRSTEN MAST INCLUSION TEACHER[employer] [facility] Start: 02-18-2024 End: 02-19-2024 ambulatory KIRSTEN MAST INCLUSION TEACHER[employer] Facility:[facility] Start: 02-18-2024 End: 02-18-2024 Patient encounter procedure KIRSTEN MAST INCLUSION TEACHER[employer] [facility] Start: 10-15-2023 End: 10-16-2023 ambulatory OSMAN TORRES PMHNP-BC Facility:[facility] Start: 10-15-2023 End: 10-15-2023 Patient encounter procedure OSMAN TORRES PMHNP-BC [facility] Start: 03-30-2023 End: 04-02-2023 Evaluation and management of inpatient MARTINEZ NÚÑEZ MD Facility:[facility] Start: 03-30-2023 End: 04-02-2023 Evaluation and management of inpatient SUNIL GRAHAM MD [facility] Start: 03-18-2023 End: 03-18-2023 ambulatory MARTINEZ NÚÑEZ MD Facility:[facility] Start: 03-15-2023 End: 03-16-2023 ambulatory SUNIL GRAHAM MD Facility:[facility] Start: 03-15-2023 End: 03-15-2023 Patient encounter procedure SUNIL GRAHAM MD [facility] Start: 03-09-2023 End: 03-14-2023 ambulatory LONG DICKERSON MD Facility:[facility] Start: 03-09-2023 End: 03-10-2023 ambulatory LONG DICKERSON MD Facility:[facility] Start: 03-09-2023 End: 03-13-2023 Outreach Lab LONG DICKERSON MD [facility] Start: 03-09-2023 End: 03-09-2023 Patient encounter procedure LONG DICKERSON MD [facility] Start: 03-07-2023 End: 03-07-2023 ambulatory MARTINEZ NÚÑEZ MD Facility:[facility] Start: 03-07-2023 End: 03-07-2023 SAME DAY STAY MARTINEZ NÚÑEZ MD [facility] Start: 03-06-2023 End: 03-06-2023 ambulatory MARTINEZ NÚÑEZ MD Facility:[facility] Start: 03-06-2023 End: 03-06-2023 SAME DAY STAY MARTINEZ NÚÑEZ MD [facility] Start: 01-26-2023 End: 01-26-2023 SAME DAY STAY MARTINEZ NÚÑEZ MD [facility] Start: 01-25-2023 End: 01-25-2023 Patient encounter procedure SUNIL GRAHAM MD [facility] Start: 01-19-2023 End: 01-19-2023 Patient encounter procedure SUNIL GRAHAM MD [facility] Start: 01-05-2023 End: 01-05-2023 Patient encounter procedure SUNIL GRAHAM MD [facility] Start: 12-03-2022 Refill Tad kirk DO Work Phone: [facility] Comment on above: Med Change Request Start: 11-18-2022 End: 11-18-2022 SAME DAY STAY SUNIL GRAHAM MD [facility] Start: 11-13-2022 End: 11-13-2022 Patient encounter procedure 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 INCLUSION TEACHER[employer] [facility] Start: 10-29-2022 End: 10-29-2022 ambulatory CHEKO MCCLELLAND Facility:[facility] Start: 10-14-2022 End: 10-14-2022 ambulatory GRETEL QUINTANA Facility:[facility] Start: 10-14-2022 End: 10-14-2022 Patient encounter procedure Gretel Quintana MD Work Phone: Obstetrics/Gynecolog y Comment on above: Encounter for superv ision of normal first in second trimester (Primary Dx); Need for influenza vaccination; 15 weeks gestation of Start: 09-21-2022 End: 09-21-2022 ambulatory FLORENCE HEWITT Facility:[facility] Start: 09-17-2022 End: 09-17-2022 ambulatory BRAULIO HOLLINGSWORTH Facility:[facility] Start: 08-21-2022 ambulatory Braulio Hollingsworth MD Work Phone: Obstetrics/Gynecolog y Comment on above: Luz oliveira Start: 08-19-2022 End: 08-19-2022 ambulatory BRAULIO HOLLINGSWORTH Facility:[facility] Start: 08-19-2022 End: 08-19-2022 Patient encounter procedure Braulio Hollingsworth MD Work Phone: Obstetrics/Gynecolog y Comment on above: Encounter for superv ision of normal first in first trimester (Primary Dx) with uncer tain dates in first trimester (Primary Dx) Start: 08-14-2022 End: 08-14-2022 ambulatory TANESHA FRANKLINLex Facility:[facility] Start: 08-10-2022 Telephone encounter Braulio connolly MD Work Phone: Obstetrics/Gynecolog y Comment on above: Patient Update Start: 08-09-2022 End: 08-09-2022 Emergency department patient visit No Primary Care Physician [facility] Start: 08-04-2022 End: 08-04-2022 Emergency department patient visit [facility] Start: 08-04-2022 End: 08-04-2022 Emergency department patient visit Melania Mitchell MD Work Phone: [facility] Comment on above: Threatened miscarria ge in early (Primary Dx) Start: 07-20-2022 End: 07-20-2022 ambulatory No Primary Care Physician [facility] Work Phone: Start: 07-20-2022 End: 07-20-2022 Discharged Recurring No Primary Care Physician [facility] Start: 07-20-2022 Registered Recurring No Primary Care Physician [facility] Start: 07-09-2022 Telephone encounter Ledy wang MD Work Phone: [facility] Comment on above: Missed Appointment ( #1 No Show, #1 Letter) Start: 07-08-2022 End: 07-08-2022 Patient encounter procedure No Primary Care Physician [facility] Start: 06-29-2022 End: 06-30-2022 Emergency department patient visit No Primary Care Physician [facility] Start: 05-31-2022 End: 05-31-2022 Emergency department patient visit HIWOT HUDSON Facility:[facility] Start: 12-31-2021 End: 12-31-2021 Emergency department patient visit JAYDE YEAGER Facility:[facility] Start: 01-27-2021 End: 01-27-2021 ambulatory Alex [phone] Lynsey [phone] Facility:[facility] Start: 12-25-2018 Patient encounter procedure Facility:[id number] Start: 09-03-2018 Patient encounter procedure Facility:[id number] Procedures Date Procedure Procedure Detail Performing Clinician Start: 10-14-2022 URINE OB DIP B/O Gretel Quintana MD Work Phone: Start: 10-14-2022 INFLUENZA VACCINE QUADRIVALENT 6 MO - 64 YRS IM Gretel Quintana MD Work Phone: Start: 08-19-2022 End: 08-19-2022 Antibody screen Braulio Hollingsworth MD Work Phone: Comment on above: Order Comment: Speci men Type: BLOOD SPECIMEN Ordering Facility[facility] Address: [address] [place], [place] [id number] Performed By: #### T SPN #### [facility] [id number] [address] [place] [address] [place] Start: 08-19-2022 Antibody [...] Speci men Type: BLOOD SPECIMEN Ordering Facility: [facility] Address: [place] [address] Performed By: #### T SPN #### [facility] CLIA [id number] [address] [place] [address] [place] Start: 08-09-2022 Transvaginal [...] of wisdom tooth (body structure) 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 [employer] TE[employer] Plan of Treatment Date Care Activity Detail Author Start: 08-19-2025 PAP TESTING PAP TESTING [facility] Start: 05-14-2024 PAP TESTING PAP TESTING [facility] Start: 08-19-2023 CHLAMYDIA SCREENING (18-24) CHLAMYDIA SCREENING (18-24) [facility] Start: 08-19-2023 GC (GONORRHEA) SCREE SAADIA (18-24) GC (GONORRHEA) SCREENING (18-24) [facility] Start: 10-14-2022 End: 10-14-2023 OBSTETRIC ULTRASOUND WHI OBSTETRIC ULTRASOUND [facility] Anc Imaging Routine Encounter for supervision of normal first in second trimester Expected: 10/14/2022, Expires: 10/14/2023 [facility] Work Phone: Comment on above: Expected: 10/14/2022 , Expires: 10/14/2023 Start: 10-11-2022 DEPRESSION ASSESSMENT DEPRESSION ASS ESSMENT [facility] Start: 08-19-2022 End: 10-19-2022 Hepatitis B virus surface Ab [Presence] in Serum by Immunoassay [facility] Work Phone: Comment on above: Expected: 08/19/2022 , Expires: 10/19/2022 Start: 08-19-2022 End: 10-19-2022 Hepatitis C virus Ab [Presence] in Serum [facility] Work Phone: Comment on above: Expected: 08/19/2022 , Expires: 10/19/2022 Start: 08-19-2022 End: 10-19-2022 HIV 1+2 Ab [Presence] in Serum or Plasma by Immunoassay [facility] Work Phone: Comment on above: Expected: 08/19/2022 , Expires: 10/19/2022 Start: 08-19-2022 End: 08-19-2023 NUCHAL TRANSLUCENCY WHI NUCHAL TRANSLUCENCY WHI Anc Imaging Routine Encounter for supervision of normal first in first trimester Expected: 08/19/2022, Expires: 08/19/2023 [facility] Work Phone: Comment on above: Expected: 08/19/2022 , Expires: 08/19/2023 Start: 08-19-2022 End: 10-19-2022 RUBELLA IGG AB [facility] Work Phone: Comment on above: Expected: 08/19/2022 , Expires: 10/19/2022 Start: 08-19-2022 End: 10-19-2022 SYPHILIS TOTAL W/REFLEX [facility] Work Phone: Comment on above: Expected: 08/19/2022 , Expires: 10/19/2022 Start: 07-08-2022 Patient referral [facility] Work Phone: Start: 06-11-2022 Influenza vaccination INFLUENZA (#1) [facility] Start: 05-14-2022 CHLAMYDIA SCREENING (18-24) CHLAMYDIA SCREENING (18-24) [facility] Start: 05-14-2022 GC (GONORRHEA) SCRELily SAADIA (18-24) GC (GONORRHEA) SCREENING (18-24) [facility] Start: 05-11-2022 Influenza vaccination Flu vaccine (# 1) [facility] Start: 05-07-2022 Urine microalbumin profile DTAP,TDAP,TD (7 - Td or Tdap) [facility] Start: 10-11-2021 DEPRESSION ASSESSMENT DEPRESSION ASS ESSMENT [facility] Start: 05-17-2021 COVID-19 VACCINE (3 - Booster for Pfizer series) COVID-19 VACCINE (3 - Booster for Pfizer series) [facility] Start: 2020 Screening for malign ant neoplasm of cervix Pap smear [facility] Start: 2018 DTaP/Tdap/Td vaccine (1 - Tdap) DTaP/Tdap/Td vaccine (1 - Tdap) [facility] Start: 2017 HEPATITIS C SCREENING HEPATITIS C SC REENING [facility] Start: 2017 Hepatitis C screening Hepatitis C sc reen [facility] Start: 2017 HIV SCREENING HIV SCREENING [facility] Start: 2015 Screening for Chlamy jarod trachomatis Chlamydia/GC screen [facility] Start: 2014 HIV screening HIV screen [facility] Start: 2013 PEDS TO ADULT TRANSI TION ANNUAL ASSESSMENT PEDS TO ADULT TRANSITION ANNUAL ASSESSMENT [facility] Start: 2011 Depression Screen Depression Screen [facility] Start: 2011 PEDS TO ADULT TRANSI TION INITIAL DISCUSSION PEDS TO ADULT TRANSITION INITIAL DISCUSSION [facility] Start: 2010 HPV vaccine (1 - 2-d ose series) HPV vaccine (1 - 2-dose series) [facility] Start: 2009 MENINGOCOCCAL B: Consider based on risk (1 of 2 - Risk Bexsero 2-dose series) MENINGOCOCCAL B: Consider based on risk (1 of 2 - Risk Bexsero 2-dose series) [facility] Start: 2000 Varicella vaccine (1 of 2 - 2-dose childhood series) Varicella vaccine (1 of 2 - 2-dose childhood series) [facility] Start: 04-09-2000 COVID-19 VACCINE (#1) COVID-19 VACCI NE (#1) [facility] Bacteria identified in Urine by Culture URINE CULTURE Microbiology Routine Encounter for supervision of normal first in first trimester 08/19/2022 2:08 PM [facility] Work Phone: Chlamydia trachomatis+Neisseria gonorrhoeae DNA [Presence] in Unspecified specimen by CHICHO with probe detection GC/CHLAMYDIA DNA DET Lab Routine Encounter for supervision of normal first in first trimester 08/19/2022 2:13 PM [facility] Work Phone: PAP FLUID CERVICAL SCREENING PAP FLUID CERVICAL SCREENING Lab Routine Encounter for supervision of normal first in first trimester Ordered: 08/19/2022 [facility] Work Phone: Comment on above: Ordered: 08/19/2022 Patient Education [facility] Work Phone: Patient referral [facility] Work Phone: [facility] Immunizations Immunization Date Immunization Notes Care Provider Fa [facility] 08-24-2023 tetanus toxoid, redu ibis diphtheria toxoid, and acellular pertussis vaccine, adsorbed KIRSTEN MAST INCLUSION TEACHER[employer] [facility] 02-01-2023 tetanus toxoid, redu ibis diphtheria toxoid, and acellular pertussis vaccine, adsorbed; Translations: [Boostrix (Tdap)] MARTINEZ NÚÑEZ MD [facility] Comment on above: Result Comment: [facility]- [id number] 10-14-2022 influenza virus vacc ine, unspecified formulation KIRSTEN MAST INCLUSION TEACHER[employer] [facility] 10-14-2022 influenza, injectabl e, quadrivalent, contains preservative Gretel Quintana MD Work Phone: [facility] 03-22-2021 SARS-CoV-2 mRNA (tozinameran) vaccine KIRSTEN [facility] INCLUSION TEACHER-[facility] 03-01-2021 SARS-CoV-2 mRNA (tozinameran) vaccine KIRSTEN [facility] INCLUSION TEACHER-[facility] 09-20-2020 influenza virus vacc ine, unspecified [facility] 09-08-2019 influenza virus vacc ine, unspecified [facility] 03-02-2018 varicella virus vaccine [facility] INCLUSION TEACHER-[facility] 07-26-2017 influenza virus vacc ine, unspecified formulation [facility] 05-11-2017 meningococcal polysaccharide (groups A, C, Y and W-135) diphtheria toxoid conjugate vaccine (MCV4P) [facility] 02-24-2016 meningococcal polysaccharide (groups A, C, Y and W-135) diphtheria toxoid conjugate vaccine (MCV4P) Ledy Vaughn MD Work Phone: [facility] 07-05-2014 influenza virus vacc ine, unspecified formulation [facility] INCLUSION TEACHER-[facility] 07-05-2014 influenza, injectabl e, quadrivalent, preservative free Ledy Vaughn MD Work Phone: [facility] Work Phone: 02-20-2014 human papilloma viru s vaccine, quadrivalent Ledy Vaughn MD Work Phone: [facility] 02-20-2014 Human Papillomavirus Quadval KIRSTEN MAST INCLUSION TEACHER[employer] [facility] 05-18-2013 human papilloma viru s vaccine, quadrivalent Ledy Vaughn MD Work Phone: [facility] Work Phone: 05-07-2012 human papilloma viru s vaccine, quadrivalent Ledy Vaughn MD Work Phone: [facility] 05-07-2012 Meningococcal, MCV4, unspecified conjugate formulation(groups A, C, Y and W-135) Ledy Vaughn MD Work Phone: [facility] 05-07-2012 tetanus toxoid, redu ibis diphtheria toxoid, and acellular pertussis vaccine, adsorbed Ledy Vaughn MD Work Phone: [facility] 05-07-2012 varicella virus vaccine Chayo Harris MD Work Phone: [facility] 01-09-2005 diphtheria, tetanus toxoids and acellular pertussis vaccine Ledy Vaughn MD Work Phone: [facility] 01-09-2005 measles, mumps and rubella virus vaccine Ledy Vaughn MD Work Phone: [facility] 01-09-2005 poliovirus vaccine, inactivated Ledy Vaughn MD Work Phone: [facility] 04-26-2001 pneumococcal conjuga te vaccine, 7 valent Ledy Vaughn MD Work Phone: [facility] 02-17-2001 diphtheria, tetanus toxoids and acellular pertussis vaccine Ledy Vaughn MD Work Phone: [facility] Work Phone: 02-17-2001 haemophilus influenz ae type b vaccine, HbOC conjugate Ledy Vaughn MD Work Phone: [facility] Work Phone: 02-17-2001 pneumococcal conjuga te vaccine, 7 valent Ledy Vaughn MD Work Phone: [facility] 11-03-2000 measles, mumps and rubella virus vaccine Ledy Vaughn MD Work Phone: [facility] Work Phone: 11-03-2000 measles/mumps/rubell a virus vaccine KIRSTEN CISNEROS INCLUSION TEACHER-[employer] [facility] 11-03-2000 varicella virus vaccine Chayo Harris MD Work Phone: [facility] Work Phone: 05-05-2000 diphtheria, tetanus toxoids and acellular pertussis vaccine Ledy Vaughn MD Work Phone: [facility] Work Phone: 05-05-2000 haemophilus influenz ae type b vaccine, HbOC conjugate Ledy Vaughn MD Work Phone: [facility] Work Phone: 05-05-2000 hepatitis B vaccine, pediatric or pediatric/adolescent dosage Ledy Vaughn MD Work Phone: [facility] Work Phone: 05-05-2000 poliovirus vaccine, inactivated Ledy Vaughn MD Work Phone: [facility] Work Phone: 03-03-2000 diphtheria, tetanus toxoids and acellular pertussis vaccine Ledy Vaughn MD Work Phone: [facility] Work Phone: 03-03-2000 haemophilus influenz ae type b vaccine, HbOC conjugate Ledy Vaughn MD Work Phone: [facility] Work Phone: 03-03-2000 poliovirus vaccine, inactivated Ledy Vaughn MD Work Phone: [facility] Work Phone: 1999 diphtheria, tetanus toxoids and acellular pertussis vaccine Ledy Vaughn MD Work Phone: [facility] Work Phone: 1999 haemophilus influenz ae type b vaccine, HbOC conjugate Ledy Vaughn MD Work Phone: [facility] Work Phone: 1999 hepatitis B vaccine, pediatric or pediatric/adolescent dosage Ledy Vaughn MD Work Phone: [facility] Work Phone: 1999 poliovirus vaccine, inactivated Ledy Vaughn MD Work Phone: [facility] Work Phone: 1999 hepatitis B pediatri c vaccine KIRSTEN BLAYNE INCLUSION TEACHER-GUM PULLER [facility] 1999 hepatitis B vaccine, pediatric or pediatric/adolescent dosage Ledy Vaughn MD Work Phone: [facility] Work Phone: Payers Date Payer Category Payer Self-pay [id number] 2025 Unknown [id number] 2023 Unknown [id number] 2021 Unknown [id number] 2021 Unknown [id number] 2021 Unknown [id number] 1999 Unknown [id number] 2.16. 840.1.429124.3.579.2.356 1999 Unknown [id number] 2.16. 840.1.732148.3.579.2.356 1999 Unknown [id number] 2.16.8 40.1.013073.3.579.2.419 1999 Unknown [id number] 2.16. 840.1.457469.3.579.2.668 1999 Unknown [id number] 2.16.8 40.1.741628.3.579.2.627 1999 Unknown [id number] 2.16.8 40.1.489653.3.579.2.627 1999 Unknown [id number] 2.16.8 40.1.776086.3.579.2.627 1999 Unknown [id number] 2.16.8 40.1.723425.3.579.2.627 1999 Unknown [id number] 2.16.8 40.1.599107.3.579.2.627 1999 Unknown [id number] 2.16.8 40.1.941628.3.579.2.627 1999 Unknown [id number] 2.16.8 40.1.002735.3.579.2.627 1999 Unknown [id number] 2.16.8 40.1.683485.3.579.2.627 1999 Unknown [id number] 2.16.8 40.1.619433.3.579.2.627 1999 Unknown [id number] 2.16.8 40.1.018648.3.579.2.627 1999 Unknown [id number] 2.16. 840.1.085381.3.579.2.479 1999 Unknown [id number] 2.16 840.1.543862.3.579.2479 1999 Unknown [id number] 2.16 840.1.700448.3.579.2479 Unknown [id number] Unknown [facility] [id number] Unknown [facility] [id number] Unknown [facility] [id number] Unknown [id number] 2.16.8 40.1.625874.3.579.2.462 Unknown [id number] 2.16.8 40.1.740610.3.579.2.462 Unknown [id number] 2.16.8 40.1.093446.3.579.2.462 Unknown [id number] 2.16.8 40.1.541853.3.579.2.462 Unknown [id number] 2.16.8 40.1.953073.3.579.2.462 Unknown [id number] 2.16.8 40.1.069543.3.579.2.462 Unknown [id number] 2.16.8 40.1.038394.3.579.2.462 Unknown [id number] 2.16.8 40.1.987436.3.579.2.462 Unknown [id number] 2.16.8 40.1.907629.3.579.2.462 Unknown [id number] 2.16.8 40.1.191867.3.579.2.462 Unknown [id number] 2.16.8 40.1.426924.3.579.2.462 Unknown [id number] 2.16.8 40.1.505306.3.579.2.462 Unknown [id number] 2.16.8 40.1.440658.3.579.2.462 Unknown [id number] 2.16.8 40.1.624883.3.579.2.462 Unknown [id number] 2.16.8 40.1.318955.3.579.2.462 Unknown [id number] 2.16.8 40.1.322135.3.579.2.462 Unknown [id number] 2.16.8 40.1.505460.3.579.2.462 Unknown [id number] 2.16.8 40.1.824668.3.579.2.462 Unknown [id number] 2.16.8 40.1.084119.3.579.2.462 Social History Date Type Detail Facility Start: 12-31-2021 End: 07-28-2024 Tobacco smoking status NHIS Never smoked tobacco [facility] Start: 12-31-2021 End: 08-19-2022 Tobacco use and exposure Smokeless tobacco non-user [facility] Start: 12-31-2021 End: 10-14-2022 Alcohol intake Ex-drinker (finding) [facility] Start: 06-27-2013 End: 08-19-2022 Tobacco Comment dad smokes outside [facility] Start: 2000 Sex Assigned At Female [facility] Start: 06-28-2022 End: 08-19-2022 Exposure to SARS-CoV-2 (event) Not sure [facility] Start: 2000 Sex Assigned At Not on file [employer] Work Phone: Start: 08-09-2022 End: 08-09-2022 Tobacco smoking status NHIS Unknown if ever smoked [facility] Work Phone: Start: 10-24-2020 Spouse/ Signif icant Other [facility] Work Phone: Start: 07-12-2022 [facility] Goals Date Patient Goal Desired Activity /State [...] bilat biceps and triceps [facility] 04-02-2023 Functional Status Rooming in [facility] 04-01-2023 Functional Status [facility] 04-01-2023 Functional Status Independent [facility] 04-01-2023 Functional Status [facility] 03-30-2023 Functional Status Home independently [facility] 03-07-2023 Functional Status Ambulating in room [facility] Mental Status Date Assessment Result Facility 03-07-2023 Mental Status Orientation Oriented x 4 [facility] Clinical Notes 07-09-2022 to 02-18-2024 Laboratory Note [...] 02/19/2024 1:39:46 AM Ordering Provider: KIRSTEN CISNEROS [facility] 10-15-2023 Evaluation + Plan note Diagnostic Tests PendingVitamin B12 Level 10/15/23Folate Level 10/15/23 Future Scheduled TestsGlucose Level 07/20/23Lipid Profile 07/20/23 [facility] 04-02-2023 Evaluation + Plan note Extrac barbara from: Title:Clinical Document Author:LONG DICKERSON MD Date:04/02/23 Subjective Comfortable with oral Motrin Lochia small. Baby is eating well per bottle Stayed overnight due to elevated bili levels in baby Objective Looks very well. Independent in room. Abdomen: Soft, uterus firm at U- 2 Extremities: Nontender with 1+ edema VITALS GglawbFjqpWRGawwtDQImF7ZMD8BwkcAd(kg) 04/02 00:3136.6--824538--94/20 78.0 04/01 16:2036.5--7916---- 04/01 08:4136.1--8114---- 03/31 23:3036.6--8416---- [...] q6h, 03/30/23 19:48:00 EDT Problems (4) Anxiety ([id number]) Body mass index 30+ - obesity (346364021) (286699524) UTI (urinary tract infection) ([id number]) ASSESSMENT/PLAN: PPD #2 after . Doing very well. Home today. Extracted from: Title:Clinical Document Author:LONG DICKERSON MD Date:03/31/23 Subjective Comfortable with oral Motrin Lochia small. Baby is nursing well. . Objective Looks very well. Independent in room. CVS: RRR Lungs: CTA B Abdomen: Soft, uterus firm at U- 1 Extremities: Nontender with 1+ edema VITALS AhvwcpJjtbEPTekwkCNMtT9HJY8CktxCh(kg) 03/31 08:3636.8--7816----03/30 78.0 03/31 05:4936--8216---- 03/31 02:00 RA 03/30 20:15----20260--IE 03/30 20:00----8018--RA 24 Hr Tmax: 36.8 at [...] q6h, 03/30/23 19:48:00 EDT Problems (4) Anxiety ([id number]) Body mass index 30+ - obesity (051769283) (593115606) UTI (urinary tract infection) ([id number]) ASSESSMENT/PLAN: PPD #1 after Outlet vacuum delivery [...] SYSTEMS: All negative ACTIVE PROBLEMS: (4) Anxiety ([id number]) Body mass index 30+ - obesity (540419184) (014388125) UTI (urinary tract infection) ([id number]) ALLERGIES: (1) CeleXA FAMILY HISTORY: No inheritable diseases. SOCIAL HISTORY: . Denies tobacco use Denies alcohol use. No illicit drug use. PHYSICAL EXAM: VITALS: TqszdvUqyiNLUjoycKSKmV4AWS8PymcGp(kg) 03/30 10:5735.6--7518----03/30 78.0 03/30 10:0535.9 03/30 09:0536.1 [...] Date:04/20/2023 02:00:00 PM Scheduled Provider:SUNIL GRAHAM MD Location[facility] Appointment Type:[facility] 06-22-2023 Note day #2 progress note: Subjective: [...] MARTINEZ NÚÑEZ MD on 04/01/2023 09:01 AM [facility]06-21-2023 Hospital Discharge instructions Patient Education 03/31/2023 12:34:52 [...] work with your health care provider or vendor management consultant. If you are not : ?Avoid [...] about methods of control (contraception). Medicines Take dfjv-jif-nscwvta and prescription medicines only as told by [...] 07/24/2008 Document Revised: 09/30/2018 Document Reviewed: 07/11/2018 [employer] Patient Education 2020 2U. 03/31/2023 12:34:52 7b- Depression and Blues (07/2020) [...] psychosis. Often, a screening tool called the Sesser Depression Scale is used to diagnose depression [...] music. Avoid alcohol. Ask for help with public relations senior associate, cooking, grocery shopping, or running errands as needed. Do nottry to do everything. Talk to people close to you about how you are feeling. Get support from your partner, family members, and friends. Try to stay positive in how you think. Think about the things you are grateful for. Do not spend a lot of time alone. Only take koyg-mjx-innpvho or prescription medicine as directed by your [...] not doing well or get worse. Resource: [facility] Patient Information 2015 [facility]. This information is not intended to replace advicegiven to you by your health care provider. Make sure you discuss any questions you have with your health care provider. Follow Up Care 03/30/2023 06:39:24 With:LONG DICKERSON Address: [address] [place] [address] [facility] [place] [address] [phone] Business (1) When: Unknown [facility] 06-21-2023 Note Date of Service 03/31/23 Chief Complaint Subjective 22 [facility] Doing well. [...] 1 herlinda, Perineum, AsDirected benzocaine topical 20% [place] 1 spray(s), Perineum, q1h bisacodyl 10 mg [...] SUNIL GRAHAM MD on 03/31/2023 11:37 AM [facility]06-21-2023 Anesthesiology Consult note Patient: LUZ OLIVEIRA Age: 22 years Sex: Female : 2000 Associated Diagnoses: None Author: JENNIFER MERA INCLUSION TEACHER-PROTOTYPE SEWER Assessment Postanesthesia assessment Vitals: Vital signs from flowsheet : Vital Signs 03/31/2023 5:49 EDT Temperature Temporal Artery 36 DegC Heart Rate Monitored 82 bpm Respiratory Rate 16 br/min Systolic Blood Pressure Non-Invasive 109 mmHg Diastolic Blood Pressure Non-Invasive 54 mmHg [facility] 03/30/2023 20:15 EDT Heart Rate Monitored 102 [...] mmHg Diastolic Blood Pressure Non-Invasive 94 mmHg [place] 03/30/2023 18:56 EDT Heart Rate Monitored 98 [...] by JENNIFER MERA on 03/31/2023 06:15 AM [facility]06-20-2023 Note Patient seen at 1730 and VE [...] LONG DICKERSON MD on 03/30/2023 05:30 PM [facility]06-20-2023 Note Patient seen at 1730 and VE [...] LONG DICKERSON MD on 03/30/2023 05:30 PM [facility]20[facility]23 Note Patient seen at 1730 and VE [...] LONG DICKERSON MD on 03/30/2023 05:30 PM [facility]06-20-2023 Note CHIEF COMPLAINT: Membranes ruptured with a [...] SYSTEMS: All negative ACTIVE PROBLEMS: (4) Anxiety ([id number]) Body mass index 30+ - obesity (990007935) (313309035) UTI (urinary tract infection) ([id number]) ALLERGIES: (1) CeleXA FAMILY HISTORY: No inheritable diseases. SOCIAL HISTORY: . Denies tobacco use Denies alcohol use. No illicit drug use. PHYSICAL EXAM: VITALS: XnybzbCsukUVCdkqzKFFyP2SXD4TnshNk(kg) 03/30 10:5735.6--7518----03/30 78.0 03/30 10:0535.9 03/30 09:0536.1 [...] LONG DICKERSON MD on 04/02/2023 11:08 AM [facility]06-20-2023 Anesthesiology Consult note Patient: LUZ OLIVEIRA Age: 22 years Sex: Female : 2000 Associated Diagnoses: None Author: JENNIFER MERA INCLUSION TEACHER-PROTOTYPE SEWER Preoperative Information laboring Anesthesia history Patient's history: [...] Problem list: Medical Anxiety / SNOMED CT [id number] / Confirmed Body mass index 30+ - obesity / SNOMED CT 410692250 / Confirmed / SNOMED CT 404197301 / Confirmed UTI (urinary tract infection) / SNOMED CT [id number] / Confirmed, Active Problems (4) Anxiety Body mass index 30+ - obesity UTI (urinary tract infection) Histories Past Medical History: Active Anxiety ([id number]) UTI (urinary tract infection) ([id number]) Family History: Cancer Grandparent Comments: 10/22/2022 14:27 AUGIE Navarro Poonam Sanchez PROGRAM DEVELOPMENT SPECIALIST maternal, brain Cardiac pacemaker Mother Diabetes mellitus Mother Asthma Grandparent Breast cancer Grandparent Heart disease Mother HTN - Hypertension Father COPD Grandparent Diabetes Grandparent Procedure history: [place] tooth ([id number]). Social History Social & Psychosocial Habits Alcohol [...] Signs(last 24 hrs) Last Charted Heart Rate Oteihpmvd38 bpm (MAR 30 10:57) Resp Rate 18 br/min (MAR 30 10:57) GFJ169 mmHg (MAR 30 10:57) DBPL 59mmHg (MAR 30 10:57) BMI32.47 (MAR 30 07:49) Measurements from flowsheet : Measurements 03/30/2023 7:49 EDT Height 155.0 cm Admission Weight 78 kg [place] Body Weight 47.85 kg BSA Admission 1.77 [...] Height 155.0 cm Admission Weight 78 kg [place] Body Weight 47.85 kg BSA Admission 1.77 [...] Baby For Adoption No Surrogate No Discharge [place] Physician P [facility] Participant No Safe Sleep Environment for [...] Teaching Evaluation Refused information Preferred Written Language Venezuelan Preferred Spoken Language Venezuelan Chief Complaint SROM Mode of Arrival Ambulatory Information Given by Patient Patient's Current Physicians Dr [facility] Emergency Contact Number Luis Daniel Oliveira [phone] Belongings At Bedside Cell phone, Face [place] Personal Home Medications Received No home medications [...] FHR Interpretation Category: Category One 03/30/2023 7:14 [facility] History and Physical History and Physical . Assessment and Plan [place] Society of Anesthesiologists (ASA) physical status classification: Class II. Anesthetic Preoperative Plan Anesthetic technique: Epidural. Informed consent: signed by patient. Digitally Signed by JENNIFER MERA on 03/30/2023 01:37 PM [facility]06-20-2023 Note Date of Service 03/30/23 Chief Complaint SROM History of Present Illness 22 yo G1@39.2 presents with large gush of fluid around 0600 and regular contractions. c/bobesity and recent growth US AC 7%le overall 15%le. Noted blood tinged fluid. Growth at 37 weeks for obesity showed borderline low fluid 5 cm, growth in 15%le. CHIEF I DISPATCHER history: Menarche: Menses: Menopause: n/a HRT: n/a [...] of breast bx: no Colonoscopy: DXA: Family CHIEF I DISPATCHER history: Breast/colon/ovarian/uterine cancer: MGM w breast ca [...] infection) Historical No qualifying data Procedure/Surgical History [place] tooth Medications Home Medications (5) Active AD [...] SUNIL GRAHAM MD on 03/30/2023 07:30 AM [facility]05-28-2023 Hospital Discharge instructions Patient Education 03/07/2023 20:26:05 7 - Labor and Delivery Outpatient Instructions (CUSTOM) [facility] OUTPATIENT HOME-GOING INSTRUCTIONS _X_ [...] crackers, bananas, Jell-O, cooked carrots, applesauce. ___ [place] diet. Avoid caffeine, chocolate, alcohol, spiced/greasy foods. [...] the nearest Emergency Room for assistance. Form [id number] D: 09/18 Document Released: 09/27/2006 Document Revised: 09/15/2012 Document Reviewed: 09/27/2006 ExitCare Patient Information 2012 [employer]. Follow Up Care 03/07/2023 19:56:20 With:WILTON AN, MARTINEZ Bautista Address: [address] [place] [address] [facility] [address] [phone] When:03/09/2023 [facility] 05-27-2023 Hospital Discharge instructions Patient Education 03/06/2023 18:27:44 7 - Labor and Delivery Outpatient Instructions (CUSTOM) [facility] OUTPATIENT HOME-GOING INSTRUCTIONS _X_ [...] crackers, bananas, Jell-O, cooked carrots, applesauce. ___ [place] diet. Avoid caffeine, chocolate, alcohol, spiced/greasy foods. [...] the nearest Emergency Room for assistance. Form [id number] D: 09/18 Document Released: 09/27/2006 Document Revised: 09/15/2012 Document Reviewed: 09/27/2006 ExitCare Patient Information 2011 [employer]. [facility] 04-18-2023 Hospital Discharge instructions Patient Education 01/26/2023 03:27:22 7 - Labor and Delivery Outpatient Instructions (CUSTOM) [facility] OUTPATIENT HOME-GOING INSTRUCTIONS _X_ [...] crackers, bananas, Jell-O, cooked carrots, applesauce. ___ [place] diet. Avoid caffeine, chocolate, alcohol, spiced/greasy foods. [...] the nearest Emergency Room for assistance. Form [id number] D: 09/18 Document Released: 09/27/2006 Document Revised: 09/15/2012 Document Reviewed: 09/27/2006 ExitCare Patient Information 2012 [employer]. Follow Up Care 01/26/2023 00:53:10 With:Follow up with primary care provider Address:Unknown When: Unknown [facility] 02-25-2023 Miscellaneous Notes* Telephone Encounter - Alex Garcia DO - 12/05/2022 5:08 PM EST Not a CFM patient documented in this encounterOhio [facility] Hospital Discharge instructions Patient Education 11/18/2022 13:18:57 [...] crackers, bananas, Jell-O, cooked carrots, applesauce. ___ [place] diet. Avoid caffeine, chocolate, alcohol, spiced/greasy foods. [...] the nearest Emergency Room for assistance. Form [id number] D: 09/18 Document Released: 09/27/2006 Document Revised: 09/15/2012 Document Reviewed: 09/27/2006 ExitCare Patient Information 2012 [employer]. Follow Up Care 11/18/2022 11:50:05 With:SUNIL GRAHAM Address: [address] [place] [address] [facility] [address] [phone] Business (1) When: Unknown [facility] 01-19-2023 NoteHNO ID: [id number] Author: Tad Shaw DO Service: Obstetrics Author [...] with plan. Tad Shaw DO 4:21 AM 10/29/2022[facility]01-19-2023 NoteHNO ID: [id number] Author: Tad Shaw DO Service: Obstetrics Author [...] intractable nausea/vomiting. She was sent her from [facility] Main ED. In the ED, patient [...] Diagnosis Date Cognitive disorder IEP per the [facility] Kidney [...] Oliveira DATE: October 29, 2022 TIME: 3:25 [facility]01-19-2023 NoteCOVID 19 RESULT: SARS-CoV-2 (Agent of COVID-19) Not Detected by RT-PCR or equivalent method. This test has been authorized by FDA under an Emergency Use Authorization (EUA). INFLUENZA A PCR: Negative for Influenza A by RT-PCR INFLUENZA B PCR: Negative for Influenza B by RT-PCR RSV PCR: Negative for Respiratory Syncytial Virus (RSV) by [facility] above:Performed By: #### [id number] ####[facility] LABORATORYCLIA [id number] [place] [address] [place] [id number] Miscellaneous Notes* Quick Notes - Gretel Quintana [...] vaccine). Gretel Quintana MD documented in this encounterOhio [facility] System01-04-2023 Nurse Note* Aimee Desir Ma - 10/14/2022 11:01 AM EST Movement? Flutters Vaginal Bleeding: NO Vaginal fluid leakage of fluid: NO Contractions: no contractions documented in this encounterOhio State Health System12-08-2022 NoteHNO ID: [id number] Author: Braulio Hollingsworth MD Service: ? Author Type: Physician Type: Progress Notes Filed: 09/17/2022 2:28 PM Note Text: Please refer to quick note and flow sheet. [facility] NoteHNO ID: [id number] Author: Braulio Hollingsworth MD Service: ? 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 No current [...] 4 weeks or sooner prn. Braulio Hollingsworth [facility]11-09-2022 NoteHNO ID: [id number] Author: Braulio Hollingsworth MD Service: ? Author Type: Physician Type: Progress Notes Filed: 08/19/2022 5:28 PM Note Text: OB point of care ultrasound was performed. See imaging tab for details. Braulio Hollingsworth [facility]11-09-2022 History of Present illness Narrative* Braulio Hollingsworth [...] No Multivitamin with Folic acid: Yes Occupation: [employer] student Sabianist or heritage: Yes Would refuse blood transfusion if medically necessary: no BMI 35.62 kg/(m^2) Patient BMI over 30? 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 No current [...] prn. Braulio Hollingsworth MD documented in this encounterOhio State Health System11-09-2022 Instructions* Patient Instructions* Braulio Hollingsworth MD - 08/19/2022 1:48 PM EST Please select the following link to access the [facility] Your Guide to a Healthy . [email or web address] documented in this encounterOhio State Health System11-09-2022 History of Present illness Narrative* Braulio Hollingsworth MD - 08/19/2022 1:41 PM EST OB point of care ultrasound was performed. See imaging tab for details. Braulio Hollingsworth MD documented in this encounterOhio State Health System11-09-2022 Nurse Note* Jennifer Stevenson MA - 08/19/2022 1:07 PM EST Movement? Too early Vaginal Bleeding: YES/MD NOTIFIED-Has had for 2 weeks Vaginal fluid leakage of fluid: NO Contractions: no contractions documented in this encounterOhio State Health System11-04-2022 NoteHNO ID: [id number] Author: Zuhair Condon DO Service: Obstetrics Author [...] 14, 2022 TIME: 9:44 PM PAGER/CONTACT #: [phone] NoteHNO ID: [id number] Author: Zuhair Condon DO Service: Obstetrics Author [...] Patient states that she originally went to [facility] on 08/09/22. 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 No [...] at time of discharge (more content not included)...[facility]10-[facility] Miscellaneous Notes* Telephone Encounter - Nisa Murphy - 08/10/2022 9:31 AM EDT Patient was in ED for bleeding. Not currently bleeding has new OB appointment 08/19. Please advise if you would like to see her sooner. documented in this encounterOhio State Health System10-25-2022 Hospital Discharge instructions* Discharge Instructions* Melania Mitchell MD - 08/04/2022 1:22 PM EDT Please call your OB today to schedule a follow up visit in the next 2 days. * Attachments The following attachments cannot be sent through Care Everywhere. * Miscarriage: Threatened (Venezuelan) documented in this encounterSUMMA Work Phone: [phone]) 365-126609-29-2022 Miscellaneous Notes* Telephone Encounter - Verónica Alegre [...] 09, 2022 12:24 PM documented in this encounterOhio State Health SystemEvaluation + Plan note Future Appointments Appointment Date:11/16/2022 02:00:00 PM Scheduled Provider:SUNIL GRAHAM MD Location:[facility] Appointment Type: OV OB Routine Follow Up [facility] Evaluation + Plan note Future Appointments Appointment Date:12/14/2022 02:15:00 PM Scheduled Provider:SUNIL GRAHAM MD Location[facility] Appointment Type: OV OB Routine Follow Up Appointment Date:12/23/2022 08:30:00 AM Scheduled Provider: Location:[facility] Appointment Type:US OB > 14 wks Future Scheduled Tests Radiology* US OB Limited/Transvaginal 01/11/23 * US OB > 14 weeks 12/23/22 [facility] Evaluation + Plan note Future Appointments Appointment [...] Antibody 12/14/22 Radiology* US OB Limited/Transvaginal 01/11/23 [facility] Evaluation + Plan note Future Appointments Appointment Date:01/25/2023 01:00:00 PM Scheduled Provider:SUNIL GRAHAM MD Location:[facility] Appointment Type: OV OB Routine Follow [...] Antibody 12/14/22 Radiology* US OB Limited/Transvaginal 01/11/23 [facility] Evaluation + Plan note Future Appointments Appointment Date:02/01/2023 01:15:00 PM Scheduled Provider:SUNIL GRAHAM MD Location:[facility] Appointment Type:[facility] OB Routine Follow Up Appointment Date:03/15/2023 02:00:00 PM Scheduled Provider: Location:[facility] Appointment Type:US OB > 14 wks Future [...] * US OB > 14 weeks 03/15/23 [facility] Evaluation + Plan note Future Appointments Appointment Date:03/09/2023 01:45:00 PM Scheduled Provider:LONG DICKERSON MD Location:[facility] Appointment Type:[facility] OB Routine Follow Up Appointment Date:03/15/2023 02:00:00 PM Scheduled Provider: Location:[facility] Appointment Type:US OB > 14 wks Future [...] * US OB > 14 weeks 03/15/23 [facility] Evaluation + Plan note Future Appointments Appointment Date:03/15/2023 02:00:00 PM Scheduled Provider: Location:[facility] Appointment Type:US OB > 14 wks Appointment Date:03/16/2023 02:30:00 PM Scheduled Provider:LONG DICKERSON MD Location:[facility] Appointment Type:[facility] OB Routine Follow Up Diagnostic Tests Pending [...] * US OB > 14 weeks 03/15/23 [facility] Evaluation + Plan note Future Appointments Appointment Date:03/15/2023 02:00:00 PM Scheduled Provider: Location:[facility] Appointment Type:US OB > 14 wks Appointment Date:03/16/2023 02:30:00 PM Scheduled Provider:LONG DICKERSON MD Location:[facility] Appointment Type:[facility] OB Routine Follow Up Future Scheduled Tests [...] * US OB > 14 weeks 03/15/23 [facility] Evaluation + Plan note Future Appointments Appointment Date:03/16/2023 02:30:00 PM Scheduled Provider:LONG DICKERSON MD Location:[facility] Appointment Type: OV OB Routine Follow [...] Urine 01/25/23 Radiology* US OB Limited/Transvaginal 01/11/23 [facility] Evaluation + Plan note Future Appointments Appointment Date:07/28/2024 08:30:00 AM Scheduled Provider:KIRSTEN CISNEROS Location:[facility] Appointment Type:PC Wellness Annual Future Scheduled Tests Laboratory* Glucose Level 07/20/23 * Lipid Profile 07/20/23 [facility] Evaluation + Plan note Future Appointments Appointment Date:08/25/2024 07:30:00 AM Scheduled Provider:KIRSTEN CISNEROS Location:[facility] Appointment Type:PC OV Future Scheduled Tests Radiology* CT Head or Brain w/o Contrast 07/28/24 * CT Spine Cervical w/o Contrast 07/28/24 [facility] Evaxhvkiwv note* Diagnosis Threatened miscarriage in early - Primary Threatened , unspecified as to episode of care documented in this encounter [facility] Work Phone: Evaluation note* Diagnosis Onset Date Resolution Status Acute lumbar myofascial strain acute Blunt abdominal trauma acute Cervical strain, acute acute Chest wall contusion acute Concussion without loss of consciousness acute Lumbar radiculopathy, acute acute [facility] Work Phone: Evaluation note* Diagnosis Encounter for supervision of normal first in first trimester- Primary Supervision of normal first documented in this encounter [place] note* Diagnosis with uncertain dates in first trimester- Primary documented in this encounter [place] note* Diagnosis Encounter for supervision of normal first in second trimester- Primary Supervision of normal first Need for influenza vaccination Need for prophylactic vaccination and inoculation against influenza 15 weeks gestation of state, incidental [facility] N[facility] No data available for this section [facility] Hospital Discharge instructions Additional Instructions Follow-up with your REPEAT CHIEF. Return if you have worsening symptoms or worsening abdominal pain/fever.[facility] Work Phone: Hospital Discharge instructions No data available for this section [facility] Progress note No data available for this section [facility] Reason for referral (narrative)* Diagnostic Procedure Only (Routine) - Pending Review Specialty Diagnoses / Procedures Referred By Contac t Referred To Contact [facility] Diagnoses Encounter for supervision of normal first in first trimester Procedures NUCHAL TRANSLUCENCY WHI US NUCHAL TRANSLUCENCY 1ST GESTATION Braulio Hollingsworth MD [address] [facility] [address] [place] [address] [facility] [address] [place] [address] Referral ID Status Reason Start Date Expiration Date Visits Requested Visits Authorized [id number] Pending Review Auto-Generat ed Referral 08/19/2022 08/19/2023 1 1 [facility] Diagnostic Procedure Only (Routine) - Authorized Specialty Diagnoses / Procedures Referred By Contac t Referred To Contact [facility] Diagnoses Encounter for supervision of normal first in second trimester Procedures OBSTETRIC ULTRASOUND WHI US PREG UTERUS AFTER 1ST TRIMEST GESTATION Gretel Quintana MD [address] [address] [facility] [address] [place] [address] Referral ID Status Reason Start Date Expiration Date Visits Requested Visits Authorized [id number] Authorized Auto-Generat ed Referral 10/14/2022 10/14/2023 1 1 [facility] Summary Purpose Family History No Family History Records Found Relationship Condition Age at Onset Recorded Date/T elli grandmother Malignant neoplasm of breast Unknown Malignant neoplasm of brain Unknown grandfather Cerebrovascular accident (CVA) Unknown mother Diabetes mellitus Unknown Advance Directives No Advanced Directives Records Found Advance Directive Response Recorded Date/ Time Advance Directives No June 8:50am Living Will No August 09 2:12pm Power of Congressional Aide No August 09, 2022 2:12pm Advance Directive Response Recorded Date/ Time Advance Directives No June 7:50am Living Will No August 09 1:12pm Power of Congressional Aide No August 09, 2022 1:12pm Chief Complaint [...] section and content) DATE CREATED AUTHOR 09/19/2018 [facility] DATE CREATED AUTHOR AUTHOR'S ORGANIZ ATION 12/26/2018 [facility] DATE CREATED AUTHOR AUTHOR'S ORGANIZ ATION 04/29/2019 [facility] DATE CREATED AUTHOR AUTHOR'S ORGANIZ ATION 12/25/2019 [facility] DATE CREATED AUTHOR AUTHOR'S ORGANIZ ATION 03/17/2021 [facility] DATE CREATED AUTHOR AUTHOR'S ORGANIZ ATION 08/29/2021 [facility] DATE CREATED AUTHOR AUTHOR'S ORGANIZ ATION 08/05/2022 [facility] DATE CREATED AUTHOR AUTHOR'S ORGANIZ ATION 11/13/2022 [facility] DATE CREATED AUTHOR AUTHOR'S ORGANIZ ATION 11/14/2022 [facility] DATE CREATED AUTHOR AUTHOR'S ORGANIZ ATION 02/20/2024 [facility] DATE CREATED AUTHOR AUTHOR'S ORGANIZ ATION 08/20/2024 [facility] DATE CREATED AUTHOR AUTHOR'S ORGANIZ ATION 06/27/2025 [facility] DATE CREATED AUTHOR AUTHOR'S ORGANIZ ATION 07/27/2025 [facility] Source Comments (unrecognize d section and content) In the event this informatio n is protected by the Federal Confidentiality of Alcohol and Drug Abuse Patient Records regulations: The Federal rules restrict any use of the information to criminally investigate or prosecute any alcohol or drug abuse patient.[facility] the event this information is protected by the Federal Confidentiality of Alcohol and Drug Abuse Patient Records regulations: The Federal rules restrict any use of the information to criminally investigate or prosecute any alcohol or drug abuse patient.[facility] System[facility] the event this information is protected by the Federal Confidentiality of Alcohol and Drug Abuse Patient Records regulations: The Federal rules restrict any use of the information to criminally investigate or prosecute any alcohol or drug abuse patient.[facility] System[facility] the event this information is protected by the Federal Confidentiality of Alcohol and Drug Abuse Patient Records regulations: The Federal rules restrict any use of the information to criminally investigate or prosecute any alcohol or drug abuse patient.[facility] System[facility] the event this information is protected by the Federal Confidentiality of Alcohol and Drug Abuse Patient Records regulations: The Federal rules restrict any use of the information to criminally investigate or prosecute any alcohol or drug abuse patient.[facility] System[facility] the event this information is protected by the Federal Confidentiality of Alcohol and Drug Abuse Patient Records regulations: The Federal rules restrict any use of the information to criminally investigate or prosecute any alcohol or drug abuse patient.[facility] System[facility] the event this information is protected by the Federal Confidentiality of Alcohol and Drug Abuse Patient Records regulations: The Federal rules restrict any use of the information to criminally investigate or prosecute any alcohol or drug abuse patient.[facility] Reason for Visit (unrecogniz ed section and [...] Role: Primary Care Physician Address: Address: [address] [place] [phone] Care Team Related Persons Name: RASHMI MTZ Address: Home [address] [place] [phone] [place] Name: MARGARITO MTZ Address: Home [address] [place] [phone] [place] Name: MARGARITO MTZ Address: Home [address] [place] [phone] [place] Name: MARGARITO MTZ Address: Home [address] [place] [address] [phone] [place] Name: MARGARITO MTZ Address: Home [address] [place] [phone] [place] Name: MARGARITO MTZ Address: Home [address] [place] [address] [phone] [place] Name: MARGARITO MTZ Address: Home [address] [place] [address] [phone] [place] Name: MARGARITO MTZ Address: Home [address] [place] [phone] [place] Name: MARGARITO MTZ Address: Home [address] [place] [phone] [place] Care Team Personnel Name: MAXWELL GOMEZ MD Member Role: Primary Care Physician Address: Address: [address] [place], [place] [phone] Care Team Related Persons Name: RASHMI MTZ Address: Home [address] [place] [phone] [place] Name: MARGARITO MTZ Address: Home [address], [place] [phone] [place] Name: MARGARITO MTZ Address: Home [address], [place] [phone] [place] Name: MARGARITO MTZ Address: Home [address] [place] [phone] [place] Name: MARGARITO MTZ Address: Home [address] [place] [phone] [place] Name: MARGARITO MTZ Address: Home [address] [place] [address] [phone] [place] Name: MARGARITO MTZ Address: Home [address] [place] [phone] [place] Name: MARGARITO MTZ Address: Home [address] [place] [address] [phone] [place] Name: MARGARITO MTZ Address: Home [address] [place] [address] [phone] Patient Care team informatio n (unrecognized section and content) Care Team Personnel Name: MAXWELL GOMEZ MD Member Role: Primary Care Physician Address: Address: [address] [place], [place] [phone] [place] Care Team Related Persons Name: RASHMI MTZ Address: Home [address] [phone] [place] Name: MARGARITO MTZ Address: Home [address] [place] [phone] [place] Name: MARGARITO MTZ Address: Home [address] [place] [phone] [place] Name: MARGARITO MTZ Address: Home [address] [place] [phone] [place] Name: ELVIA MTZRI Address: Home [address] [place] [phone] [place] Name: MARGARITO MTZ Address: Home [address], [place] [phone] [place] Name: MARGARITO MTZ Address: Home [address], [place] [phone] [place] Name: MARGARITO MTZ Address: Home [address], [place] [phone] [place] Name: MARGARITO MTZ Address: [address], [place] [phone] [place] Care Team Personnel Name: MAXWELL GOMEZ MD Member Role: Primary Care Physician Address: Address: [address] [place] [phone] [place] Care Team Related Persons Name: RASHMI MTZ Address: Home [address] [phone] [place] Name: MARGARITO MTZ Address: Home [address], [place] [phone] [place] Name: MARGARITO MTZ Address: [address], [place] [phone] [place] Name: MARGARITO MTZ Address: [address] [place], [place] [phone] [place] Name: MARGARITO MTZ Address: [address], [place] [phone] [place] Name: MARGARITO MTZ Address: [address], [place] [phone] [place] Name: MARGARITO MTZ Address: [address] [place], [place] [phone] [place] Name: MARGARITO MTZ Address: [address], [place] [phone] [place] Name: MARGARITO MTZ Address: [address], [place] [phone] [place] Care Team Personnel Name: SUNIL GRAHAM MD Position: P4 REPEAT CHIEF Provider Member Role: Primary Care Physician Address: Address: [address] [place], [place] [address] [place], [place] [address] Care Team Related Persons Name: RASHMI MTZ Address: Home [address] [phone] [place] Name: MARGARITO MTZ Address: [address], [place] [phone] [place] Name: MARGARITO MTZ Address: Home [address], [place] [phone] [place] Name: MARGARITO MTZ Address: Home [address] [place], [place] [phone] [place] Name: ELVIA MTZRI Address: [address], [place] [phone] [place] Name: ELVIA MTZRI Address: Home [address], [place] [phone] [place] Name: ELVIA MTZRI Address: [address], [place] [phone] [place] Name: ELVIA MTZRI Address: [address], [place] [phone] [place] Name: ELVIA MTZRI Address: [address], [place] [phone] [place] Care Team Personnel Name: SUNIL GRAHAM MD Position: P4 REPEAT CHIEF Provider Member Role: Primary Care Physician Address: Address: [address] [place] [address] Care Team Related Persons Name: RASHMI MTZ Address: Home [address] [phone] [place] Name: MARGARITO MTZ Address: [address], [place] [phone] [place] Name: ELVIA MTZRI Address: [address] [place], [place] [phone] [place] Name: MARGARITO MTZ Address: Home [address] [place], [place] [phone] [place] Name: ELVIA MTZRI Address: [address], [place] [phone] [place] Name: MARGARITO MTZ Address: [address], [place] [phone] [place] Name: MARGARITO MTZ Address: [address], [place] [phone] [place] Name: MARGARITO MTZ Address: [address], [place] [phone] [place] Name: MARGARITO MTZ Address: [address], [place] [phone] [place] Care Team Personnel Name: MARTINEZ NÚÑEZ MD Position: P4 REPEAT CHIEF Provider Member Role: Primary Care Physician Address: Address: [address] [place] [id number] Care Team Related Persons Name: RASHMI MTZ Address: Home [address] [phone] [place] Name: MARGARITO MTZ Address: [address], [place] [phone] [place] Name: MARGARITO MTZ Address: [address] [place], [place] [phone] [place] Name: MARGARITO MTZ Address: [address], [place] [phone] [place] Name: MARGARITO MTZ Address: [address], [place] [phone] [place] Name: MARGARITO MTZ Address: [address], [place] [phone] [place] Name: MARGARITO MTZ Address: [address] [place], [place] [phone] [place] Name: MARGARITO MTZ Address: Home [address] [place] [address] [phone] [place] Name: MARGARITO MTZ Address: [address], [place] [phone] Care Team Personnel Name: MARTINEZ NÚÑEZ MD Position: P4 REPEAT CHIEF Provider Member Role: Primary Care Physician Address: Address: [address] [place] [id number] Care Team Related Persons Name: RASHMI MTZ Address: Home [address] [phone] [place] Name: MARGARITO MTZ Address: [address] [place], [place] [phone] [place] Name: MARGARITO MTZ Address: [address], [place] [phone] [place] Name: MARGARITO MTZ Address: [address], [place] [phone] [place] Name: MARGARITO MTZ Address: [address], [place] [phone] [place] Name: MARGARITO MTZ Address: [address], [place] [phone] [place] Name: MARGARITO MTZ Address: [address], [place] [phone] [place] Name: MARGARITO MTZ Address: [address], [place] [phone] [place] Name: MARGARITO MTZ Address: [address], [place] [phone] [place] Care Team Personnel Name: MARTINEZ NÚÑEZ MD Position: P4 REPEAT CHIEF Provider Member Role: Primary Care Physician Address: Address: [address] [place] [id number] Care Team Related Persons Name: RASHMI MTZ Address: Home [address] [phone] [place] Name: MARGARITO MTZ Address: [address], [place] [phone] [place] Name: MARGARITO MTZ Address: [address], [place] [phone] [place] Name: MARGARITO MTZ Address: [address], [place] [phone] [place] Name: MARGARITO MTZ Address: [address] [place], [place] [phone] [place] Name: MARGARITO MTZ Address: [address], [place] [phone] [place] Name: MARGARITO MTZ Address: [address], [place] [phone] [place] Name: MARGARITO MTZ Address: [address], [place] [phone] [place] Name: MARGARITO MTZ Address: [address], [place] [phone] [place] Care Team Personnel Name: MARTINEZ NÚÑEZ MD Position: P4 REPEAT CHIEF Provider Member Role: Primary Care Physician Address: Address: [address] [place] [address]- Care Team Related Persons Name: RASHMI MTZ Address: Home [address] [phone] [place] Name: MARGARITO MTZ Address: [address] [place], [place] [phone] [place] Name: MARGARITO MTZ Address: [address] [place], [place] [phone] [place] Name: MARGARITO MTZ Address: [address], [place] [phone] [place] Name: MARGARITO MTZ Address: [address] [place], [place] [phone] [place] Name: MARGARITO MTZ Address: [address], [place] [phone] [place] Name: MARGARITO MTZ Address: [address], [place] [phone] [place] Name: MARGARITO MTZ Address: [address], [place] [phone] [place] Name: MARGARITO MTZ Address: [address], [place] [phone] [place] Care Team Personnel Name: MARTINEZ NÚÑEZ MD Position: P4 REPEAT CHIEF Provider Member Role: Primary Care Physician Address: Address: [address] [place] [phone] [place] [address] Care Team Related Persons Name: RASHMI MTZ Address: Home [address] [phone] [place] Name: MARGARITO MTZ Address: [address], [place] [phone] [place] Name: MARGARITO MTZ Address: [address] [place], [place] [phone] [place] Name: MARGARITO MTZ Address: [address], [place] [phone] [place] Name: MARGARITO MTZ Address: [address] [place], [place] [phone] [place] Name: MARGARITO MTZ Address: [address], [place] [phone] [place] Name: MARGARITO MTZ Address: [address], [place] [phone] [place] Name: MARGARITO MTZ Address: [address], [place] [phone] [place] Name: MARGARITO MTZ Address: [address], [place] [phone] [place] Care Team Personnel Name: MARTINEZ NÚÑEZ MD Position: P4 REPEAT CHIEF Provider Member Role: Primary Care Physician Address: Address: [address] [place] [address]- Care Team Related Persons Name: AMANDA OLIVEIRA Address: Home [address] [place] [phone] [place] Address: Temporary [address] [place], [place] [phone] Name: RASHMI MTZ Address: Home [address] [phone] [place] Name: MARGARITO MTZ Address: [address], [place] [phone] [place] Name: MARGARITO MTZ Address: [address], [place] [phone] [place] Name: MARGARITO MTZ Address: [address], [place] [phone] [place] Name: MARGARITO MTZ Address: [address], [place] [phone] [place] Name: MARGARITO MTZ Address: [address], [place] [phone] [place] Name: MARGARITO MTZ Address: [address], [place] [phone] [place] Name: MARGARITO MTZ Address: [address], [place] [phone] [place] Name: MARGARITO MTZ Address: [address], [place] [phone] [place] Care Team Personnel Name: MARTINEZ NÚÑEZ MD Position: P4 REPEAT CHIEF Provider Member Role: Primary Care Physician Address: Address: [address] [place] [address] [place], [place] [address] Care Team Related Persons Name: LUIS DANIEL OLIVEIRA Address: Home [address] [place], [place] [phone] Address: Temporary [address] [place] [phone] Care Team Personnel Name: KIRSTEN CISNEROSGUM PULLER Position: P4 Advanced Cash Analyst Member Role: Primary Care Physician Address: Address: [address] [place] [id number] Care Team Related Persons Name: LUIS DANIEL OLIVEIRA Address: Home [address] [place], [place] [phone] Address: Temporary [address] [place], [place] [phone] Care Team Personnel Name: KIRSTEN CISNEROS APRN-GUM PULLER Position: P4 Advanced Cash Analyst Member Role: Primary Care Physician Address: Address: [address] [place] [address]- Care Team Related Persons Name: LUIS DANIEL OLIVEIRA Address: Home [address] [place], [place] [phone] Address: Temporary [address] [place], [place] [phone] FOR RECORDS PERTAINING TO PATIENTS WHO ARE [...] BE BASED ON THE PRIMARY CLINICAL RECORDS. [facility] [employer] provides no warranty or guarantee of the accuracy or completeness of information in this document.
[2025-07-29 21:10] LABS: Hematocrit 32.1 % (37-47); Hemoglobin 11.4 g/dL (12.0-15.0); Immature Granulocytes Count 0.070 X10^3/uL (0.0-0.0); Mean Corp Hgb Conc 35.5 g/dL (32-36); Mean Corpuscular Volume 91.7 fL (81-99); Mean Platelet Vol. 10.4 fl (6.2-12.0); NRBC Flagged by Analyzer 0 % (0-5); Platelet Count 204 K/mm3 (150-450); RBC Distribution Width CV 13.9 % (11.6-14.6); RBC Distribution Width SD 46.3 fl (35.1-43.9); Red Blood Count 3.50 M/mm3 (4.2-5.4); White Blood Count 10.0 K/mm3 (4.4-11.0)
[2025-07-29 21:23] LABS: D-Dimer Quantitative (DVT/PE) 0.68 FEU/ug/m (0.27-0.49)
[2025-07-29 21:29] LABS: Color, Urine Straw (Yellow); Glucose, Dipstick Normal (Normal); Ketone-Dipstick Negative (Negative); Leukocyte Esterase-Dipstick 500 /ul (Negative); Mucous, Urine 0 SEEN /hpf (<or=2+); Nitrite-Dipstick Negative (Negative); Occult Blood-Urine 25 /ul (Negative); Protein-Dipstick 15 mg/dl (Negative); Specific Gravity, Urine 1.010 (1.002-1.030); Urine Bilirubin Dipstick Negative (Negative)
[2025-07-29 21:30] LABS: AST(SGOT) 17 U/L (<=31); Alanine Aminotransfer ALT/SGPT 12 U/L (<=34); Albumin, Serum 3.7 g/dL (3.5-5.0); Alkaline Phosphatase 65 U/L (35-104); Anion Gap 13 (5-15); BUN 7 mg/dL (4-19); BUN/Creat Ratio 11.3 RATIO (10-20); Bilirubin, Direct 0.11 mg/dL (0.00-0.30); Calcium,Total 9.2 mg/dL (7.6-11.0); Carbon Dioxide 22.0 mmol/L (21.0-32.0); Chloride 103 mmol/L (98-108); Estimated Creatinine Clearance 142.90 ml/min (50-250); Globulin 2.6 g/dL (2.2-4.2); Glucose 93 mg/dL (70-99); Lipase 19 U/L (13-75); Potassium 3.4 mmol/L (3.3-5.1)
[2025-07-29 21:36] LABS: Red Blood Cells-Urine 5-10 SEEN /hpf (0-5); Squamous Epithelial Cells - UA 0-5 SEEN /hpf (5-10)
[2025-07-29 21:46] LABS: Troponin T High Sensitivity < 6 ng/L (<=14)
--- OUTSIDE RECORDS SUMMARY | 2025-07-29 23:59 | XMS RPT_ITS | CCD ---
Author Organization [facility] Care Team Providers Care Pipe Fitter Ammonia Name Role Phone Lynsey [phone], Alex [phone] C onsulting Unavailable KWON DO, KAY K [...] DR MAXWELL GOMEZ MD Primary Care Physician CHEKO MCCLELLAND Admitting Unavailable CHEKO MCCLELLAND Attending Unavailable TANESHA HILTON Attending Unavailable TANESHA HILTON Admitting Unavailable JAYDE YEAGER Attending Unavailable HIWOT HUDSON Attending UnavailSUNIL Saeed MD Primary Care Physician MARTINEZ NÚÑEZ MD Primary Care Physician MAST TEAM GUIDE-BARREL MARKER, KIRSTEN Primary Care Physician WILTON AN, MARTINEZ Bautista Primary Care Unavailable LIVIER AN, SUNIL Admitting Unavailable JAYLA AN, LONG Attending Unavailable WILTON AN, MARTINEZ Bautista Attending Unavailable WILTON AN, MARTINEZ Bautista Primary Care Unavailable WILTON AN, MARTINEZ Bautista Attending Unavailable WILTON AN, MARTINEZ Bautista Primary Care Unavailable WILTON AN, MARTINEZ Bautista Attending Unavailable WILTON AN, MARTINEZ Bautista Primary Care Unavailable [facility] Attending Unavailhieu NÚÑEZ MD, MARTINEZ Bautista Primary Care Unavailable MAST TEAM GUIDE-BARREL MARKER, KIRSTEN Attending Unavailabl e MAST TEAM GUIDE-BARREL MARKER, KIRSTEN Primary Care Unavailabl e LIVIER AN, SUNIL Attending Unavailable WILTON AN, MARTINEZ Bautista Primary Care Unavailable JAYLA AN, LONG Attending Unavailable WILTON AN, MARTINEZ Bautista Primary Care Unavailable JAYLA AN, LONG Attending Unavailable WILTON AN, MARTINEZ Bautista Primary Care Unavailable MAST TEAM GUIDE-BARREL MARKER, KIRSTEN Attending Unavailabl e MAST TEAM GUIDE-BARREL MARKER, KIRSTEN Primary Care Unavailabl e RAMA AVALOS [...] Physician, No Primary Primary Care Unava ilable [employer] F[employer]ER [employer] GRAZIER, Remedios Attending Unavailable Care Physician, No Primary Referring Unava ilable Care Physician, No Primary Primary Care Unava ilable Sanchez, Geraldine Referring Unavailable Sanchez, Geraldine Attending Unavailable Vande Velde, Rama Referring Unavailabl e Vande Velde, Rama Attending Unavailabl e Care Physician, No Primary Primary Care Unava ilable Antonio, [place] Consulting Unavailable Care Physician, No Primary Primary Care Unava ilable [employer] GRAZIER, Remedios Attending Unavailable GardnerMendez Attending Unavailable Care Physician, No Primary Primary Care Unava ilable [place] F[employer]ER [employer] GRAZIER, Remedios Attending Unavailable Care Physician, No Primary Primary Care Unava ilable Jose FARMER AND GRAZIER, Remedios Referring Unavailable Care Physician, No Primary Primary Care Unava ilable Marcanthony, Geraldine Referring Unavailable Marcanthony, Geraldine Attending Unavailable Care Physician, No Primary Primary Care Unava ilable Damari Mcdonough Referring Unavailable Damari Mcdonough Attending Unavailable Jose FARMER AND GRAZIER, Remedios Attending Unavailable Care Physician, No Primary Primary Care Unava ilable [place] [employer] GRAZIER, Remedios Referring Unavailable Jose FARMER AND GRAZIER, Remedios Attending Unavailable Care Physician, No Primary Primary Care Unava ilable Jose FARMER AND GRAZIER, Remedios Referring Unavailable Care Physician, No Primary Primary Care Unava ilable Care Physician, No Primary Referring Unava ilable Geraldine Bradford Attending Unavailable Allergies Allergy Classification Reported Allergen(s) Allergy Type Date of Onset Reaction(s) Facility (1 source) Escitalopram Drug Allergy [facility] Repository (11 sources) Citalopram; Translations: [CITALOPRAM HYDROBROMIDE] Drug Allergy 4 Other: See Comments [facility] Work Phone: (11 sources) Escitalopram; Translations: [ESCITALOPRAM] Drug Allergy 1 Other: See Comments [facility] Work Phone: (15 sources) Citalopram; Translations: [citalopram] Drug Allergy Suicidal ideation [facility] (1 source) Citalopram Drug Allergy 5 [facility] Repository (1 source) Escitalopram Drug Allergy [facility] Repository Medications Current Medications Medication Drug Class(es) Dates Sig (Normalized) Sig (Original) acetaminophen 500 mg oral tablet (1 source) Start: 03-31-2023 End: 04-28-2023 Tylenol Extra Strength 500 mg oral tablet Dose : 500 mg = 1 tab(s), Oral, q4h, X 14 day(s), # 30 tab(s), 1 Refill(s), 04/28/23 11:38:00 EDT, Pharmacy: [facility]/pharmacy #[id number], 155, cm, 03/30/23 7:49:00 EDT, Height Start Date: 03/31/23 Stop Date: 04/28/23 Status: Ordered benzocaine 200 mg/ml topical spray (1 source) Standardized Chemical Allergen Start: 03-31-2023 End: 04-14-2023 apply 1 dose topically four times daily Americaine 20% topical spray Dose = 1 herlinda, Topical, QID, X 14 day(s), # 1 EA, 0 Refill(s), Pharmacy: [facility]/pharmacy #[id number], 155, cm, 03/30/23 7:49:00 EDT, Height [...] 0 Refill(s), 02/25/24 8:31:00 AM EDT, Pharmacy: [facility] #[id number], 155, cm, 02/18/24 [...] BID, # 28 tab(s), 0 Refill(s), Pharmacy: [facility] #330, 155, cm, 02/18/24 7:59:00 EDT, [...] tab(s), 0 Refill(s), 04/14/23 11:38:00 EDT, Pharmacy: [facility]/pharmacy #[id number], 155, cm, 03/30/23 7:49:00 EDT, Height Start Date: 03/31/23 Stop Date: 04/14/23 Status: Ordered magnesium oxide 400 mg oral tablet (3 sources) Start: 01-11-2023 End: 02-10-2023 magnesium oxide 400 mg oral tablet Dose : 400 mg = 1 tab(s), Oral, qHS, X 30 day(s), # 30 tab(s), 0 Refill(s), 02/10/23 15:17:00 EDT, Pharmacy: [facility]/pharmacy #[id number], 155, , 01/11/23 15:08:00 EDT, Height [...] tylenol, # 12 tab(s), 0 Refill(s), Pharmacy: [facility]/pharmacy #[id number], 155, cm, 01/11/23 15:08:00 EDT, Height [...] on above: Take 1 capsule by mo [facility] daily with breakfast. AD oral tablet (10 sources) Start: 01-26-2023 take 1 tablet by mouth once daily AD oral tablet Dose = 1 tab(s), Oral, Daily, # 30 tab(s), 0 Refill(s) Start Date: 01/26/23 Status: Ordered Pzvrljzz-Dnj-Tq-Fa () 1 mg Tablet (2 sources) Start: 08-09-2022 take 1 tablet by mouth once daily Jssdhbzn-Yuy-Ch-Fa () 1 mg Tablet Active 1 TABLET PO DAILY August 08, 2022 11:00pm Start: 08-09-2022 [facility] Imdmvnmx-Mrq-Qx-Fa () 1 mg Tablet Active 1 TABLET [...] qDay, # 30 tab(s), 11 Refill(s), [id number] Depression, major, recurrent, moderate, 154, cm, 07/20/23 7:49:00 EDT, Height, kg, 07/20/23 7:49:00 EDT, Dosing Weight Start Date: 08/16/23 Stop Date: 08/10/24 Status: Ordered Vitamin B2 100 mg oral tablet (8 sources) Start: 02-04-2023 take 1 tablet by mouth once daily Vitamin B2 100 mg oral tablet 1 tab(s), Oral, qDay, # 30 tab(s), 2 Refill(s), Pharmacy: [facility] STORE [id number], 155, cm, 02/01/23 13:50:00 EDT, Height, kg, 01/26/23 0:59:00 EDT, Dosing Weight Start Date: 02/04/23 Status: Ordered Start: 01-11-2023 Vitamin B2 100 mg oral tablet Dose : 100 mg = 1 tab(s), Oral, Daily, # 30 tab(s), 2 Refill(s), Pharmacy: [facility]/pharmacy #[id number], 155, cm, 01/11/23 15:08:00 EDT, Height [...] (FLONASE) 50 mcg/actuation nasal spray Use 1 [place] in each nostril once daily. 1 Bottle 2 07/10/2014 08/19/2022 Discontinued Comment on above: Use 1 [place] in each nostril once daily. loratadine 10 [...] (3 sources) Congenital vesicoureterorenal reflux; Translations: [Congenital aybqxr-qpuzxri-dfrmz reflux] Onset: 5 Chronic Headache; including migraine [...] Absolute Lymph 1.09 X10 3/uL Normal 0.83-4.51 [facility] Comment on above: Performed By: #### L 100.0100, L500.4050 #### [facility] [address] [place], [place], [id number] Absolute Neut 6.9 X10 3/uL Normal 2.0-7.7 [facility] Comment on above: Performed By: #### L 100.0100, L500.4050 #### [facility] [address] [place], [address] Basophils/100 WBC (Bld) 0.1 % Normal 0-1 [facility] Comment on above: Performed By: #### L 100.0100, L500.4050 #### [facility] [address] [place], [address] Eosinophils/100 WBC (Bld) 0.2 % Normal 0-5 [facility] Comment on above: Performed By: #### L 100.0100, L500.4050 #### [facility] [address] [place], [address] Erythrocyte distribution width (RBC) [Ratio] 14.1 % Normal 11.6-14.6 [facility] Comment on above: Performed By: #### L 100.0100, L500.4050 #### [facility] [address] [place], [address] Hematocrit (Bld) [Volume fraction] 31.9 % Low 37-47 [facility] Comment on above: Performed By: #### L 100.0100, L500.4050 #### [facility] [address] [place], [address] Hemoglobin (Bld) [Mass/Vol] 11.6 g/dL Low 12.0-15.0 [facility] Comment on above: Performed By: #### L 100.0100, L500.4050 #### [facility] [address] [place], [address] IG% 0.600 Normal 0.0-0.9 [facility] Comment on above: Result Comment: IG% - Immature Granulocytes (promyelocytes, myelocytes and metamyelocytes) > 1% indicates that a LEFT SHIFT is Present. Performed By: #### L 100.0100, L500.4050 #### [facility] [address] [place], [address] Lymphocytes/100 WBC (Bld) 12.8 % Low 19-41 [facility] Comment on above: Performed By: #### L 100.0100, L500.4050 #### [facility] [address] [place], [address] MCH (RBC) [Entitic mass] 32.6 pg High 27.0-32.0 [facility] Comment on above: Performed By: #### L 100.0100, L500.4050 #### [facility] [address] [place], [address] MCHC (RBC) [Mass/Vol] 36.4 g/dL High 32-36 [facility] Comment on above: Performed By: #### L 100.0100, L500.4050 #### [facility] [address] [place], [address] MCV (RBC) [Entitic vol] 89.6 fL Normal 81-99 [facility] Comment on above: Performed By: #### L 100.0100, L500.4050 #### [facility] [address] [place], [address] Monocytes/100 WBC (Bld) 4.7 % Normal 0-10 [facility] Comment on above: Performed By: #### L 100.0100, L500.4050 #### [facility] [address] [place], [address] Neutrophils/100 WBC (Bld) 81.6 % High 47-70 [facility] Comment on above: Performed By: #### L 100.0100, L500.4050 #### [facility] [address] [place], [address] Nucleated RBC (Bld) [#/Vol] 0 10*3/uL Normal 0-5 [facility] Comment on above: Performed By: #### L 100.0100, L500.4050 #### [facility] [address] [place], [address] Platelet mean volume (Bld) [Entitic vol] 10.1 fL Normal 6.2-12.0 [facility] Comment on above: Performed By: #### L 100.0100, L500.4050 #### [facility] [address] [place], [address] Platelets (Bld) [#/Vol] 180 10*3/uL Normal 150-450 [facility] Comment on above: Performed By: #### L 100.0100, L500.4050 #### [facility] [address] [place], [address] RBC (Bld) [#/Vol] 3.56 10*6/uL Low 4.2-5.4 [facility] Comment on above: Performed By: #### L 100.0100, L500.4050 #### [facility] [address] [place], [address] RDW SD 45.9 fl High 35.1-43.9 [facility] Comment on above: Performed By: #### L 100.0100, L500.4050 #### [facility] [address] [place], [address] WBC (Bld) [#/Vol] 8.5 10*3/uL Normal 4.4-11.0 [facility] Comment on above: Performed By: #### L 100.0100, L500.4050 #### [facility] [address] [place], [address] Comprehensive Metabolic Prof [facility] 07-09-2025 Albumin [Mass/Vol] 3.9 g/dL Normal 3.5-5.0 [facility] Comment on above: Performed By: #### L 100.0100, L500.4050 #### [facility] [address] [place], [address] Albumin/Globulin [Mass ratio] 1.4 {ratio} Normal 0.9-2.4 [facility] Comment on above: Performed By: #### L 100.0100, L500.4050 #### [facility] [address] [place], [address] ALK PHOS 65 U/L Normal 35-104 [facility] Comment on above: Performed By: #### L 100.0100, L500.4050 #### [facility] [address] [place], [address] ALT [Catalytic activity/Vol] 20 U/L Normal <=34 [facility] Comment on above: Performed By: #### L 100.0100, L500.4050 #### [facility] [address] [place], [address] AST [Catalytic activity/Vol] 23 U/L Normal <=31 [facility] Comment on above: Performed By: #### L 100.0100, L500.4050 #### [facility] [address] [place], [address] Bilirubin [Mass/Vol] 0.35 mg/dL Normal 0.00-1.30 [facility] Comment on above: Performed By: #### L 100.0100, L500.4050 #### [facility] [address] [place], [address] BUN/CRE 10.5 RATIO Normal 10-20 [facility] Comment on above: Performed By: #### L 100.0100, L500.4050 #### [facility] [address] [place], [address] Calcium [Mass/Vol] 9.1 mg/dL Normal 7.6-11.0 [facility] Comment on above: Performed By: #### L 100.0100, L500.4050 #### [facility] [address] [place], [address] Chloride [Moles/Vol] 105 mmol/L Normal 98-108 [facility] Comment on above: Performed By: #### L 100.0100, L500.4050 #### [facility] [address] [place], [address] CO2 [Moles/Vol] 18.7 mmol/L Low 21.0-32.0 [facility] Comment on above: Performed By: #### L 100.0100, L500.4050 #### [facility] [address] [place], [address] Creatinine [Mass/Vol] 0.60 mg/dL Low 0.70-1.20 [facility] Comment on above: Performed By: #### L 100.0100, L500.4050 #### [facility] [address] [place], [address] GAP 14 Normal 5-15 [facility] Comment on above: Performed By: #### L 100.0100, L500.4050 #### [facility] [address] [place], [address] GFR/1.73 sq M.predicted among non-blacks MDRD (S/P/Bld) [Vol rate/Area] 128 mL/min/{1.73_m2} Normal >60 [facility] Comment on above: Result Comment: mL/m in/1.73m2 CKD-EPI Creatinine Equation (2020) Performed By: #### L 100.0100, L500.4050 #### [facility] [address] [place], [address] Globulin (S) [Mass/Vol] 2.8 g/dL Normal 2.2-4.2 [facility] Comment on above: Performed By: #### L 100.0100, L500.4050 #### [facility] [address] [place], [address] Glucose [Mass/Vol] 91 mg/dL Normal 70-99 [facility] Comment on above: Performed By: #### L 100.0100, L500.4050 #### [facility] [address] [place], [address] Potassium [Moles/Vol] 3.7 mmol/L Normal 3.3-5.1 [facility] Comment on above: Performed By: #### L 100.0100, L500.4050 #### [facility] [address] [place], [address] Sodium [Moles/Vol] 137 mmol/L Normal 133-145 [facility] Comment on above: Performed By: #### L 100.0100, L500.4050 #### [facility] [address] [place], [address] T PROT 6.7 g/dL Normal 5.9-8.4 [facility] Comment on above: Performed By: #### L 100.0100, L500.4050 #### [facility] [address] [place], [address] Urea nitrogen [Mass/Vol] 6 mg/dL Normal 4-19 [facility] Comment on above: Performed By: #### L 100.0100, L500.4050 #### [facility] [address] [place], [address] Dry End Tester Office Visit Reporton 07-09-2025 Dry End Tester Office Visit Report [facility], [address] [place] [address] OFFICE VISIT Date of Service: 07/09/25 MR#: [id number] Acct: [id number] Name: LUZ OLIVEIRA Rep #: 36 [...] Visit Reasons: DISCUSS CONCERNS * OK PER Handbell Choir Director Required: No Is patient in pain?: No Allergies escitalopram (From Lexapro) Adverse Reaction (Severe, Verified 07/09/25 09:30) SUICIDAL citalopram hydrobromide (From Celexa) Adverse Reaction (Verified 07/09/25 09:30) Other Medications ???Medication ???Instructions ???Recorded ???Confirmed ???Type tosflmym-mxd-Tw-FA 1 mg 1 tab PO DAILY 08/09/22 [...] hypertension Obesity affecting 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 ikkrta-wvuvzpj-sdbbr reflux Surgical History [place] teeth removed Family History Grandmother Breast cancer Brain cancer Grandfather CVA (cerebral vascular accident) Mother Diabetes Heart failure MRSA carrier History of recurrent miscarriages Father Hypertension Social History adopted: No household members: spouse and children housing: house number of children: 1 current occupation: [employer] current occupational exposures/hazards: No pets and [...] 3-4 times per week duration: 15-30 minutes/day kalpana/pentecostal: Synagogue seatbelt use: always do you feel safe at home: Yes 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 Date Name GA/Weeks Outcome Route Bth Weight Gen Labor Lgth Anesthesia Del Locatn Provider FOB 10/11/18 Chemical 4 spontaneous 03/30/23 Amanda 39 live - full term vacuum 6lbs 1oz Female epidural [facility] Delivery Date: 03/30/23 Last Updated by: [...] Visit Note (more content not included)... Normal [facility] Protein+Creatinine Ratio,Uri neon 07-09-2025 PROT:CRE RATIO 283 mg/g CRE High 0-200 [facility] Comment on above: Performed By: #### L 501.0900 #### [facility] [address] [place], [address] Protein (U) [Mass/Vol] 73.9 mg/dL High 0.0-12.0 [facility] Comment on above: Performed By: #### L 501.0900 #### [facility] [address] [place], [address] UR CREAT 261.00 mg/dL High 28.00-217.00 [facility] Comment on above: Performed By: #### L 501.0900 #### [facility] [address] [place], [address] Wound Cultureon 07-06-2025 WC Lesion of abdomen Possible skin contamination, further Identification and sensitivity will be performed only by physician's request. Coag Negative Staph Amount Growth 2+ Normal [facility] Comment on above: Performed By: #### L 100.0100 #### [facility] [address] [place], [address] Gram Stainon 07-04-2025 GS Lesion of abdomen Gram Stain 1+ White Blood Cells No organisms seen Normal [facility] Comment on above: Performed By: #### L 100.0100 #### [facility] [address] [place], [address] Dry End Tester Office Visit Reporton 07-03-2025 Dry End Tester Office Visit Report [facility] [address], [address] [place] [address] OFFICE VISIT Date of Service: 07/03/25 MR#: [id number] Acct: [id number] Name: LUZ OLIVEIRA Rep #: [id number] : 2000 Provider: JARAD moctezuma Age/Sex: 24/F Location: [facility] Status: Signed Intake Vital Signs 05/07/25 14:40 06/06/25 13:39 07/03/25 15:35 Height 5 ft 1 in 5 ft 1 in 5 ft 1 in Weight: 185 lb 4 oz BMI 34.9 BP 109/74 Intake Visit Reasons: 21wk ob Chief Complaint: 21 Week OB [employer]bell Choir Director Required: No Is patient in pain?: No Allergies escitalopram (From Lexapro) Adverse Reaction (Severe, Verified 07/03/25 15:38) SUICIDAL citalopram hydrobromide (From Celexa) Adverse Reaction (Verified 07/03/25 15:38) Other Medications ???Medication ???Instructions ???Recorded ???Confirmed ???Type tutnhnun-doy-Ze-FA 1 mg 1 tab PO DAILY 08/09/22 [...] hypertension Obesity affecting 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 qbnavp-tqzhulu-emvtj reflux Surgical History [place] teeth removed Family History Grandmother Breast cancer Brain cancer Grandfather CVA (cerebral vascular accident) Mother Diabetes Heart failure MRSA carrier History of recurrent miscarriages Father Hypertension Social History adopted: No household members: spouse and children housing: house number of children: 1 current occupation: [employer] current occupational exposures/hazards: No pets and [...] 3-4 times per week duration: 15-30 minutes/day kalpana/pentecostal: Synagogue seatbelt use: always do you feel safe at home: Yes 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 Normal [facility] Progress Noteon 06-20-2025 Data Processing Auditor Authentication Interface Message Text [facility] MATERNAL- MEDICINE CONSULT Referring/Requesting Provider: Rama [...] disorder Chronic kidney disease kidney stones Congenital okzttx-zzeiuvb-mxqlb reflux Depression Elevated liver enzymes Headache in [...] repeat LFTs are elevated, refer to local belt cutter for further evaluation. Frequent UTI 06/20/2025 - [...] hemorrhage, stillbirth, anomalies, delivery and postcesarean complications. [place] of medicine recommend weight gain in : [...] findings. Ame (more content not included)... Normal [facility] Dry End Tester Office Visit Reporton 06-06-2025 Dry End Tester Office Visit Report [facility] [address], [address] [place] [address] OFFICE VISIT Date of Service: 06/06/25 MR#: [id number] Acct: [id number] Name: LUZ OLIVEIRA Rep #: [id number] : 2000 Provider: Dr. Rama Trammell DO Age/Sex: 24/F Location: [facility] Status: Signed Intake Vital Signs 04/09/25 10:40 05/30/25 09:28 06/06/25 13:37 06/06/25 13:39 Height 5 ft 1 in 5 ft 1 in 5 ft 1 in 5 ft 1 in Weight: 183 lb 5 oz BMI 34.6 BP 112/68 Intake Visit Reasons: 17 wk ob [employer]bell Choir Director Required: No Is patient in pain?: No Allergies escitalopram (From Lexapro) Adverse Reaction (Severe, Verified 06/06/25 13:36) SUICIDAL citalopram hydrobromide (From Celexa) Adverse Reaction (Verified 06/06/25 13:36) Other Medications ???Medication ???Instructions ???Recorded ???Confirmed ???Type antihbpu-nbr-Fy-FA 1 mg 1 tab PO DAILY 08/09/22 06/06/25 H istory tablet metoclopramide HCl 5 mg tablet 5 mg PO QACHS #60 tabs 04/19/25 Rx (Reglan) Last Menstrual Period: 02/02/25 Zika: Zika virus screening: Negative : No PFSH PFSH Medical History Fatty liver Renal atrophy, left Elevated liver enzymes Heart palpitations History of gestational hypertension Obesity affecting 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 lgizpg-jenlmys-xkadq reflux Surgical History [place] teeth removed Family History Grandmother Breast cancer Brain cancer Grandfather CVA (cerebral vascular accident) Mother Diabetes Heart failure MRSA carrier History of recurrent miscarriages Father Hypertension Social History adopted: No household members: spouse and children housing: house number of children: 1 current occupation: [employer] current occupational exposures/hazards: No pets and [...] 3-4 times per week duration: 15-30 minutes/day kalpana/pentecostal: Synagogue seatbelt use: always do you feel safe at home: Yes 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 Date Name GA/Weeks Outcome Route Bth Weight Gen Labor Lgth Anesthesia Del Locatn Provider FOB 10/11/18 Chemical 4 spontaneous 03/30/23 Amanda 39 live - full term vacuum 6lbs 1oz Female epidural [facility] Delivery Date: 03/30/23 Last Updated by: [...] ??-???- Negat (more content not included)... Normal [facility] Urine Cultureon 06-02-2025 URC #1,2 Gram positive francheska suggestive of a diphtheroid. Susceptibility not normally performed on this organism Urine Culture Urine Culture Urine Culture Corynebacterium amycolatum [place] Count 11,000-25,000 Corynebacterium minutissimum Corynebacterium minutissimum Normal [facility] Comment on above: Performed By: #### M 100.678, M100.2200, L400.0001 #### [facility] [address] [place], [place], [address] Cardiology Visit Reporton Cardiology Visit Report [facility] [address] [place] [address] OFFICE VISIT Date of Service: 05/30/25 MR#: [id number] Acct: [id number] Name: LUZ OLIVEIRA Rep #: [id number] : 2000 Provider: Dr. 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 Choir Director Required: No Accompanied by: Self Is patient in pain?: No Allergies escitalopram (From Lexapro) Adverse Reaction (Severe, Verified 05/30/25 09:34) SUICIDAL citalopram hydrobromide (From Celexa) Adverse Reaction (Verified 05/30/25 09:34) Other Medications ???Medication ???Instructions ???Recorded ???Confirmed ???Type lcmgasii-eeq-Va-FA 1 mg 1 tab PO DAILY 08/09/22 05/30/25 H istory tablet metoclopramide HCl 5 mg tablet 5 mg PO QACHS #60 tabs 04/19/25 Rx (Reglan) PFSH Medical History Fatty liver Renal atrophy, left Elevated liver enzymes Heart palpitations History of gestational hypertension Obesity affecting 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 hdatpy-bngudow-ojnfb reflux Surgical History [place] teeth removed Family History Grandmother Breast cancer Brain cancer Grandfather CVA (cerebral vascular accident) Mother Diabetes Heart failure MRSA carrier History of recurrent miscarriages Father Hypertension Social History adopted: No household members: spouse and children housing: house number of children: 1 current occupation: [employer] current occupational exposures/hazards: No pets and [...] 3-4 times per week duration: 15-30 minutes/day kalpana/pentecostal: Synagogue seatbelt use: always do you feel safe at home: Yes 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 Normal [facility] Comprehensive Metabolic Prof ilon 05-30-2025 Albumin [Mass/Vol] 4.0 g/dL Normal 3.5-5.0 [facility] Comment on above: Performed By: #### L 100.0100, L500.4050 #### [facility] [address] [place], [address] Albumin/Globulin [Mass ratio] 1.5 {ratio} Normal 0.9-2.4 [facility] Comment on above: Performed By: #### L 100.0100, L500.4050 #### [facility] [address] [place], [address] ALK PHOS 56 U/L Normal 35-104 [facility] Comment on above: Performed By: #### L 100.0100, L500.4050 #### [facility] [address] [place], [address] ALT [Catalytic activity/Vol] 35 U/L Normal <=34 [facility] Comment on above: Performed By: #### L 100.0100, L500.4050 #### [facility] [address] [place], [address] AST [Catalytic activity/Vol] 29 U/L Normal <=31 [facility] Comment on above: Performed By: #### L 100.0100, L500.4050 #### [facility] [address] [place], [address] Bilirubin [Mass/Vol] 0.36 mg/dL Normal 0.00-1.30 [facility] Comment on above: Performed By: #### L 100.0100, L500.4050 #### [facility] [address] [place], [address] BUN/CRE 10.5 RATIO Normal 10-20 [facility] Comment on above: Performed By: #### L 100.0100, L500.4050 #### [facility] [address] [place], [address] Calcium [Mass/Vol] 9.3 mg/dL Normal 7.6-11.0 [facility] Comment on above: Performed By: #### L 100.0100, L500.4050 #### [facility] [address] [place], [address] Chloride [Moles/Vol] 104 mmol/L Normal 98-108 [facility] Comment on above: Performed By: #### L 100.0100, L500.4050 #### [facility] [address] [place], [address] CO2 [Moles/Vol] 20.0 mmol/L Low 21.0-32.0 [facility] Comment on above: Performed By: #### L 100.0100, L500.4050 #### [facility] [address] [place], [address] Creatinine [Mass/Vol] 0.57 mg/dL Low 0.70-1.20 [facility] Comment on above: Performed By: #### L 100.0100, L500.4050 #### [facility] [address] [place], [address] GAP 14 Normal 5-15 [facility] Comment on above: Performed By: #### L 100.0100, L500.4050 #### [facility] [address] [place], [address] GFR/1.73 sq M.predicted among non-blacks MDRD (S/P/Bld) [Vol rate/Area] 129 mL/min/{1.73_m2} Normal >60 [facility] Comment on above: Result Comment: mL/m in/1.73m2 CKD-EPI Creatinine Equation (2020) Performed By: #### L 100.0100, L500.4050 #### [facility] [address] [place], [address] Globulin (S) [Mass/Vol] 2.6 g/dL Normal 2.2-4.2 [facility] Comment on above: Performed By: #### L 100.0100, L500.4050 #### [facility] [address] [place], [address] Glucose [Mass/Vol] 92 mg/dL Normal 70-99 [facility] Comment on above: Performed By: #### L 100.0100, L500.4050 #### [facility] [address] [place], [address] Potassium [Moles/Vol] 3.8 mmol/L Normal 3.3-5.1 [facility] Comment on above: Performed By: #### L 100.0100, L500.4050 #### [facility] [address] [place], [address] Sodium [Moles/Vol] 138 mmol/L Normal 133-145 [facility] Comment on above: Performed By: #### L 100.0100, L500.4050 #### [facility] [address] [place], [address] T PROT 6.6 g/dL Normal 5.9-8.4 [facility] Comment on above: Performed By: #### L 100.0100, L500.4050 #### [facility] [address] [place], [address] Urea nitrogen [Mass/Vol] 6 mg/dL Normal 4-19 [facility] Comment on above: Performed By: #### L 100.0100, L500.4050 #### [facility] [address] [place], [address] Thyroid Stim Hormone (TSH)on 05-30-2025 TSH 0.631 uIU/mL Normal 0.300-4.200 [facility] Comment on above: Performed By: #### L 501.9520 #### [facility] [address] [place], [address] CBC W/Diff, Automatedon Absolute Lymph 1.81 X10 3/uL Normal 0.83-4.51 [facility] Comment on above: Performed By: #### L 100.0100, L500.4050 #### [facility] [address], [address] Absolute Neut 5.3 X10 3/uL Normal 2.0-7.7 [facility] Comment on above: Performed By: #### L 100.0100, L500.4050 #### [facility] [address] [place], [address] Basophils/100 WBC (Bld) 0.1 % Normal 0-1 [facility] Comment on above: Performed By: #### L 100.0100, L500.4050 #### [facility] [address] [place], [address] Eosinophils/100 WBC (Bld) 0.3 % Normal 0-5 [facility] Comment on above: Performed By: #### L 100.0100, L500.4050 #### [facility] [address] [place], [address] Erythrocyte distribution width (RBC) [Ratio] 12.9 % Normal 11.6-14.6 [facility] Comment on above: Performed By: #### L 100.0100, L500.4050 #### [facility] [address] [place], [address] Hematocrit (Bld) [Volume fraction] 36.8 % Low 37-47 [facility] Comment on above: Performed By: #### L 100.0100, L500.4050 #### [facility] [address] [place], [address] Hemoglobin (Bld) [Mass/Vol] 13.0 g/dL Normal 12.0-15.0 [facility] Comment on above: Performed By: #### L 100.0100, L500.4050 #### [facility] [address] [place], [address] IG% 0.400 Normal 0.0-0.9 [facility] Comment on above: Result Comment: IG% - Immature Granulocytes (promyelocytes, myelocytes and metamyelocytes) > 1% indicates that a LEFT SHIFT is Present. Performed By: #### L 100.0100, L500.4050 #### [facility] [address] [place], [address] Lymphocytes/100 WBC (Bld) 23.5 % Normal 19-41 [facility] Comment on above: Performed By: #### L 100.0100, L500.4050 #### [facility] [address] [place], [address] MCH (RBC) [Entitic mass] 31.0 pg Normal 27.0-32.0 [facility] Comment on above: Performed By: #### L 100.0100, L500.4050 #### [facility] [address] [place], [address] MCHC (RBC) [Mass/Vol] 35.3 g/dL Normal 32-36 [facility] Comment on above: Performed By: #### L 100.0100, L500.4050 #### [facility] [address] [place], [address] MCV (RBC) [Entitic vol] 87.6 fL Normal 81-99 [facility] Comment on above: Performed By: #### L 100.0100, L500.4050 #### [facility] [address] [place], [address] Monocytes/100 WBC (Bld) 6.7 % Normal 0-10 [facility] Comment on above: Performed By: #### L 100.0100, L500.4050 #### [facility] [address] [place], [address] Neutrophils/100 WBC (Bld) 69.0 % Normal 47-70 [facility] Comment on above: Performed By: #### L 100.0100, L500.4050 #### [facility] [address] [place], [address] Nucleated RBC (Bld) [#/Vol] 0 10*3/uL Normal 0-5 [facility] Comment on above: Performed By: #### L 100.0100, L500.4050 #### [facility] [address] [place], [address] Platelet mean volume (Bld) [Entitic vol] 10.3 fL Normal 6.2-12.0 [facility] Comment on above: Performed By: #### L 100.0100, L500.4050 #### [facility] [address] [place], [address] Platelets (Bld) [#/Vol] 198 10*3/uL Normal 150-450 [facility] Comment on above: Performed By: #### L 100.0100, L500.4050 #### [facility] [address] [place], [address] RBC (Bld) [#/Vol] 4.20 10*6/uL Normal 4.2-5.4 [facility] Comment on above: Performed By: #### L 100.0100, L500.4050 #### [facility] [address] [place], [address] RDW SD 39.9 fl Normal 35.1-43.9 [facility] Comment on above: Performed By: #### L 100.0100, L500.4050 #### [facility] [address] [place], [address] WBC (Bld) [#/Vol] 7.7 10*3/uL Normal 4.4-11.0 [facility] Comment on above: Performed By: #### L 100.0100, L500.4050 #### [facility] [address] [place], [address] Comprehensive Metabolic Prof [facility] 05-14-2025 Albumin [Mass/Vol] 4.2 g/dL Normal 3.5-5.0 [facility] Comment on above: Performed By: #### L 100.0100, L500.4050 #### [facility] [address] [place], [address] Albumin/Globulin [Mass ratio] 1.5 {ratio} Normal 0.9-2.4 [facility] Comment on above: Performed By: #### L 100.0100, L500.4050 #### [facility] [address] [place], [address] ALK PHOS 61 U/L Normal 35-104 [facility] Comment on above: Performed By: #### L 100.0100, L500.4050 #### [facility] [address] [place], [address] ALT [Catalytic activity/Vol] 47 U/L High <=34 [facility] Comment on above: Performed By: #### L 100.0100, L500.4050 #### [facility] [address] [place], [address] AST [Catalytic activity/Vol] 36 U/L High <=31 [facility] Comment on above: Performed By: #### L 100.0100, L500.4050 #### [facility] [address] [place], [address] Bilirubin [Mass/Vol] 0.52 mg/dL Normal 0.00-1.30 [facility] Comment on above: Performed By: #### L 100.0100, L500.4050 #### [facility] [address] [place], [address] BUN/CRE 10.7 RATIO Normal 10-20 [facility] Comment on above: Performed By: #### L 100.0100, L500.4050 #### [facility] [address] [place], [address] Calcium [Mass/Vol] 9.5 mg/dL Normal 7.6-11.0 [facility] Comment on above: Performed By: #### L 100.0100, L500.4050 #### [facility] [address] [place], [address] Chloride [Moles/Vol] 102 mmol/L Normal 98-108 [facility] Comment on above: Performed By: #### L 100.0100, L500.4050 #### [facility] [address] [place], [address] CO2 [Moles/Vol] 18.6 mmol/L Low 21.0-32.0 [facility] Comment on above: Performed By: #### L 100.0100, L500.4050 #### [facility] [address] [place], [address] Creatinine [Mass/Vol] 0.66 mg/dL Low 0.70-1.20 [facility] Comment on above: Performed By: #### L 100.0100, L500.4050 #### [facility] [address] [place], [address] GAP 16 High 5-15 [facility] Comment on above: Performed By: #### L 100.0100, L500.4050 #### [facility] [address] [place], [address] GFR/1.73 sq M.predicted among non-blacks MDRD (S/P/Bld) [Vol rate/Area] 125 mL/min/{1.73_m2} Normal >60 [facility] Comment on above: Result Comment: mL/m in/1.73m2 CKD-EPI Creatinine Equation (2020) Performed By: #### L 100.0100, L500.4050 #### [facility] [address] [place], [address] Globulin (S) [Mass/Vol] 2.8 g/dL Normal 2.2-4.2 [facility] Comment on above: Performed By: #### L 100.0100, L500.4050 #### [facility] [address] [place], [address] Glucose [Mass/Vol] 92 mg/dL Normal 70-99 [facility] Comment on above: Performed By: #### L 100.0100, L500.4050 #### [facility] [address] [place], [address] Potassium [Moles/Vol] 3.8 mmol/L Normal 3.3-5.1 [facility] Comment on above: Performed By: #### L 100.0100, L500.4050 #### [facility] [address] [place], [address] Sodium [Moles/Vol] 137 mmol/L Normal 133-145 [facility] Comment on above: Performed By: #### L 100.0100, L500.4050 #### [facility] [address] [place], [address] T PROT 7.0 g/dL Normal 5.9-8.4 [facility] Comment on above: Performed By: #### L 100.0100, L500.4050 #### [facility] [address] [place], [address] Urea nitrogen [Mass/Vol] 7 mg/dL Normal 4-19 [facility] Comment on above: Performed By: #### L 100.0100, L500.4050 #### [facility] [address] [place], [address] Dry End Tester Office Visit Reporton 05-14-2025 Dry End Tester Office Visit Report [facility] [address], [address] [place] [address] OFFICE VISIT Date of Service: 05/14/25 MR#: [id number] Acct: [id number] Name: LUZ OLIVEIRA Rep #: [id number] : 2000 Provider: Dr. Rama Trammell DO Age/Sex: 24/F Location: [facility] Status: Signed Intake Vital Signs 05/07/25 14:40 05/14/25 14:48 05/14/25 14:48 Height 5 ft 1 in 5 ft 1 in 5 ft 1 in Weight: 185 lb 1 oz BMI 34.9 BP 100/52 L Intake Visit Reasons: 14wk OB, elevated liver enzymes cbc/cmp FU [employer] Director Required: No Is patient in pain?: No Allergies escitalopram (From Lexapro) Adverse Reaction (Severe, Verified 05/14/25 14:48) SUICIDAL citalopram hydrobromide (From Celexa) Adverse Reaction (Verified 05/14/25 14:48) Other Medications ???Medication ???Instructions ???Recorded ???Confirmed ???Type vkulnlfb-wri-Hy-FA 1 mg 1 tab PO DAILY 08/09/22 05/14/25 H istory tablet metoclopramide HCl 5 mg tablet 5 mg PO QACHS #60 tabs 07/10/25 08 /04/25 Rx (Reglan) Last Menstrual Period: 02/02/25 Zika: Zika virus screening: Negative : No PFSH PFSH Medical History Congenital evmcpl-uxhbqkf-ldujw reflux Surgical History [place] teeth removed Family History Grandmother Breast cancer Brain cancer Grandfather CVA (cerebral vascular accident) Mother Diabetes Heart failure MRSA carrier History of recurrent miscarriages Father Hypertension Social History adopted: No household members: spouse and children housing: house number of children: 1 current occupation: [employer] current occupational exposures/hazards: No pets and [...] 3-4 times per week duration: 15-30 minutes/day kalpana/pentecostal: Synagogue seatbelt use: always do you feel safe at home: Yes 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 (more content not included)... Normal [facility] CBC W/Diff, Automatedon 07-2 Absolute Lymph 1.24 X10 3/uL Normal 0.83-4.51 [facility] Comment on above: Performed By: #### L 100.0100, L500.4050 #### [facility] [address] [place], [address] Absolute Neut 6.2 X10 3/uL Normal 2.0-7.7 [facility] Comment on above: Performed By: #### L 100.0100, L500.4050 #### [facility] [address] [place], [address] Basophils/100 WBC (Bld) 0.1 % Normal 0-1 [facility] Comment on above: Performed By: #### L 100.0100, L500.4050 #### [facility] [address] [place], [address] Eosinophils/100 WBC (Bld) 0.1 % Normal 0-5 [facility] Comment on above: Performed By: #### L 100.0100, L500.4050 #### [facility] [address] [place], [address] Erythrocyte distribution width (RBC) [Ratio] 12.5 % Normal 11.6-14.6 [facility] Comment on above: Performed By: #### L 100.0100, L500.4050 #### [facility] [address] [place], [address] Hematocrit (Bld) [Volume fraction] 36.6 % Low 37-47 [facility] Comment on above: Performed By: #### L 100.0100, L500.4050 #### [facility] [address] [place], [address] Hemoglobin (Bld) [Mass/Vol] 12.8 g/dL Normal 12.0-15.0 [facility] Comment on above: Performed By: #### L 100.0100, L500.4050 #### [facility] [address] [place], [address] IG% 0.500 Normal 0.0-0.9 [facility] Comment on above: Result Comment: IG% - Immature Granulocytes (promyelocytes, myelocytes and metamyelocytes) > 1% indicates that a LEFT SHIFT is Present. Performed By: #### L 100.0100, L500.4050 #### [facility] [address] [place], [address] Lymphocytes/100 WBC (Bld) 15.8 % Low 19-41 [facility] Comment on above: Performed By: #### L 100.0100, L500.4050 #### [facility] [address] [place], [address] MCH (RBC) [Entitic mass] 30.8 pg Normal 27.0-32.0 [facility] Comment on above: Performed By: #### L 100.0100, L500.4050 #### [facility] [address] [place], [address] MCHC (RBC) [Mass/Vol] 35.0 g/dL Normal 32-36 [facility] Comment on above: Performed By: #### L 100.0100, L500.4050 #### [facility] [address] [place], [address] MCV (RBC) [Entitic vol] 88.2 fL Normal 81-99 [facility] Comment on above: Performed By: #### L 100.0100, L500.4050 #### [facility] [address] [place], [address] Monocytes/100 WBC (Bld) 5.0 % Normal 0-10 [facility] Comment on above: Performed By: #### L 100.0100, L500.4050 #### [facility] [address] [place], [address] Neutrophils/100 WBC (Bld) 78.5 % High 47-70 [facility] Comment on above: Performed By: #### L 100.0100, L500.4050 #### [facility] [address] [place], [address] Nucleated RBC (Bld) [#/Vol] 0 10*3/uL Normal 0-5 [facility] Comment on above: Performed By: #### L 100.0100, L500.4050 #### [facility] [address] [place], [address] Platelet mean volume (Bld) [Entitic vol] 10.7 fL Normal 6.2-12.0 [facility] Comment on above: Performed By: #### L 100.0100, L500.4050 #### [facility] [address] [place], [address] Platelets (Bld) [#/Vol] 180 10*3/uL Normal 150-450 [facility] Comment on above: Performed By: #### L 100.0100, L500.4050 #### [facility] [address] [place], [address] RBC (Bld) [#/Vol] 4.15 10*6/uL Low 4.2-5.4 [facility] Comment on above: Performed By: #### L 100.0100, L500.4050 #### [facility] [address] [place], [address] RDW SD 39.5 fl Normal 35.1-43.9 [facility] Comment on above: Performed By: #### L 100.0100, L500.4050 #### [facility] [address] [place], [address] WBC (Bld) [#/Vol] 7.8 10*3/uL Normal 4.4-11.0 [facility] Comment on above: Performed By: #### L 100.0100, L500.4050 #### [facility] [address] [place], [address] Comprehensive Metabolic Prof [facility] 05-07-2025 Albumin [Mass/Vol] 4.2 g/dL Normal 3.5-5.0 [facility] Comment on above: Performed By: #### L 100.0100, L500.4050 #### [facility] [address] [place], [address] Albumin/Globulin [Mass ratio] 1.6 {ratio} Normal 0.9-2.4 [facility] Comment on above: Performed By: #### L 100.0100, L500.4050 #### [facility] [address] [place], [address] ALK PHOS 62 U/L Normal 35-104 [facility] Comment on above: Performed By: #### L 100.0100, L500.4050 #### [facility] [address] [place], [address] ALT [Catalytic activity/Vol] 58 U/L High <=34 [facility] Comment on above: Performed By: #### L 100.0100, L500.4050 #### [facility] [address] [place], [address] AST [Catalytic activity/Vol] 43 U/L High <=31 [facility] Comment on above: Performed By: #### L 100.0100, L500.4050 #### [facility] [address] [place], [address] Bilirubin [Mass/Vol] 0.56 mg/dL Normal 0.00-1.30 [facility] Comment on above: Performed By: #### L 100.0100, L500.4050 #### [facility] [address] [place], [address] BUN/CRE 10.7 RATIO Normal 10-20 [facility] Comment on above: Performed By: #### L 100.0100, L500.4050 #### [facility] [address] [place], [address] Calcium [Mass/Vol] 9.5 mg/dL Normal 7.6-11.0 [facility] Comment on above: Performed By: #### L 100.0100, L500.4050 #### [facility] [address] [place], [address] Chloride [Moles/Vol] 102 mmol/L Normal 98-108 [facility] Comment on above: Performed By: #### L 100.0100, L500.4050 #### [facility] [address] [place], [address] CO2 [Moles/Vol] 17.7 mmol/L Low 21.0-32.0 [facility] Comment on above: Performed By: #### L 100.0100, L500.4050 #### [facility] [address] [place], [address] Creatinine [Mass/Vol] 0.59 mg/dL Low 0.70-1.20 [facility] Comment on above: Performed By: #### L 100.0100, L500.4050 #### [facility] [address] [place], [address] GAP 16 High 5-15 [facility] Comment on above: Performed By: #### L 100.0100, L500.4050 #### [facility] [address] [place], [address] GFR/1.73 sq M.predicted among non-blacks MDRD (S/P/Bld) [Vol rate/Area] 128 mL/min/{1.73_m2} Normal >60 [facility] Comment on above: Result Comment: mL/m in/1.73m2 CKD-EPI Creatinine Equation (2020) Performed By: #### L 100.0100, L500.4050 #### [facility] [address] [place], [address] Globulin (S) [Mass/Vol] 2.7 g/dL Normal 2.2-4.2 [facility] Comment on above: Performed By: #### L 100.0100, L500.4050 #### [facility] [address] [place], [address] Glucose [Mass/Vol] 110 mg/dL High 70-99 [facility] Comment on above: Performed By: #### L 100.0100, L500.4050 #### [facility] [address] [place], [address] Potassium [Moles/Vol] 3.7 mmol/L Normal 3.3-5.1 [facility] Comment on above: Performed By: #### L 100.0100, L500.4050 #### [facility] [address] [place], [address] Sodium [Moles/Vol] 135 mmol/L Normal 133-145 [facility] Comment on above: Performed By: #### L 100.0100, L500.4050 #### [facility] [address] [place], [address] T PROT 6.9 g/dL Normal 5.9-8.4 [facility] Comment on above: Performed By: #### L 100.0100, L500.4050 #### [facility] [address] [place], [address] Urea nitrogen [Mass/Vol] 6 mg/dL Normal 4-19 [facility] Comment on above: Performed By: #### L 100.0100, L500.4050 #### [facility] [address] [place], [address] HIVon 05-07-2025 HIV Non-Reactive Normal Nonreactive [facility] Comment on above: Result Comment: Non- Reactive Reactive Repeatedly reactive samples must be confirmed according to CDC recommended confirmatory algorithms. The subresults for either HIVAG or AHIV can be used as an aid in the selection of the confirmation algorithm for reactive samples. [facility]. Order the HIV antibody detection and differentiation: lc#[id number] Performed By: #### L 100.0100, L500.4050 #### [facility] [address] [place], [address] Hemoglobin A1con 05-07-2025 HbA1c (Bld) [Mass fraction] 5.1 % Normal <=5.6 [facility] Comment on above: Result Comment: Norm al < 5.7 % Prediabetic 5.7 - 6.4 % Diabetic >or= 6.5 % Please note range changes. Performed By: #### L 100.0100, L500.4050 #### [facility] [address] [place], [address] Hepatitis C Antibodyon 05-07 Hepatitis C Ab Non-Reactive Normal Nonreactive [facility] Comment on above: Result Comment: Reac tive: Presumptive evidence of antibodies to HCV. Follow CDC recommendations for supplemental testing. Non-Reactive: Antibodies to HCV were not detected; does not exclude the possibility of exposure to HCV Reactive Results are presumptive evidence of antibodies to HCV. Follow CDC recommendations for supplemental testing. Order confirmation testing: HCV Quant by PCR testing - HCVPCR #[id number] Non Reactive: < 0.8 Equivocal: >/= 0.8 to < 1.0 Reactive: >/= 1.0 The CDC requires that a reactive/equivocal HCV antibody result be sent out for confirmation. HCV Quant by PCR testing. Performed By: #### L 100.0100, L500.4050 #### [facility] [address] [place], [address] L3890.6102on 05-07-2025 HEP B Surf Ag Non-Reactive Normal Nonreactive [facility] Comment on above: Result Comment: Reac tive: Presumptive evidence of HBV. Repeatedly reactive samples must be confirmed using a neutralization test ([employer] HBsAg Confirmatory Test) Non-Reactive: HBsAg not detected; does not exclude the possibility of exposure to HBV Performed By: #### L 100.0100, L500.4050 #### [facility] [address] [place], [address] L509.4006on 05-07-2025 Rubella IgG REAC Normal Nonreactive [facility] Comment on above: Result Comment: Anti body Result: Interpretation Non-Reactive: Non-Immune Reactive: Immune The following results were obtained with the [employer] Rubella IgG assay. Results from assays of other manufacturers cannot be used interchangeably. Performed By: #### L 100.0100, L500.4050 #### [facility] [address] [facility] 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 Is patient in pain?: No Allergies escitalopram (From Lexapro) Adverse Reaction (Severe, Verified 05/07/25 14:39) SUICIDAL citalopram hydrobromide (From Celexa) Adverse Reaction (Verified 05/07/25 14:39) Other Medications ???Medication ???Instructions ???Recorded ???Confirmed ???Type czfijcju-rsw-Sz-FA 1 mg 1 tab PO DAILY 08/09/22 05/07/25 H istory tablet metoclopramide HCl 5 mg tablet 5 mg PO QACHS #60 tabs 04/19/25 Rx (Reglan) Last Menstrual Period: 02/02/25 : No PFSH PFSH Medical History Congenital egknxd-svocdza-xptxh reflux Surgical History [place] teeth removed Family History Grandmother Breast cancer Brain cancer Grandfather CVA (cerebral vascular accident) Mother Diabetes Heart failure MRSA carrier History of recurrent miscarriages Father Hypertension Social History adopted: No household members: spouse and children housing: house number of children: 1 current occupation: [employer] current occupational exposures/hazards: No pets and [...] 3-4 times per week duration: 15-30 minutes/day kalpana/pentecostal: Synagogue seatbelt use: always do you feel safe at home: Yes 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 Normal [facility] Syphilis Antibodieson 2024 Syphilis Abs Non-Reactive Normal Nonreactive [facility] Comment on above: Performed By: #### L 100.0100, L500.4050 #### [facility] [address] [place], [id number] Type AND Screenon 05-07-2025 Ab SCREEN GEL Negative Normal [facility] Comment on above: Order Comment: PN Performed By: #### L 100.0100, L500.4050 #### [facility] [address] [place], [address] Chlamydia/GC CHICHO aptimaon CHLAMY,NUC ACID Negative Normal Negative [facility] Comment on above: Performed By: #### L 100.0100 #### [facility] [address] [place], [address] GC BY NUC ACID Negative Normal Negative [facility] Comment on above: Result Comment: Perf ormed at: =G - [facility] [address] [id number] Lead Investigator: Rubi Snow MD, Phone: [phone] Performed By: #### L 100.0100 #### [facility] [address] [place], [address] PAP I-G w/rfx hrHPV-Aptimaon 04-12-2025 ADEQ Comment Normal . [facility] Comment on above: Order Comment: REDRA W. PREVIOUS SPECIMEN REJECTED DUE TO CLOTTED SPECIMEN. 01/02/251948 Result Comment: Sati sfactory for evaluation. Endocervical and/or squamous metaplastic cells (endocervical component) are present. Performed By: #### L 100.0100 #### [facility] [address] [place], [address] COMM . Normal . [facility] Comment on above: Order Comment: REDRA W. PREVIOUS SPECIMEN REJECTED DUE TO CLOTTED SPECIMEN. 01/02/251948 Performed By: #### L 100.0100 #### [facility] [address] [place], [address] COMMENT Comment Normal . [facility] Comment on above: Order Comment: REDRA W. PREVIOUS SPECIMEN REJECTED DUE TO CLOTTED SPECIMEN. 01/02/251948 Result Comment: This liquid based ThinPrep(R) pap test was screened with the use of an image guided system. Performed By: #### L 100.0100 #### [facility] [address] [place], [address] DIAG Comment Normal . [facility] Comment on above: Order Comment: REDRA W. PREVIOUS SPECIMEN REJECTED DUE TO CLOTTED SPECIMEN. 01/02/251948 Result Comment: NEGA TIVE FOR INTRAEPITHELIAL LESION OR MALIGNANCY. Performed By: #### L 100.0100 #### [facility] [address] [place], [place], [address] HPV RFLX Comment Normal . [facility] Comment on above: Order Comment: REDRA W. PREVIOUS SPECIMEN REJECTED DUE TO CLOTTED SPECIMEN. 01/02/251948 Result Comment: The HPV DNA reflex criteria were not met with this specimen result therefore, no HPV testing was performed. Performed at: - [facility] [id number] Lead Investigator: Rubi Snow MD, Phone: [phone] Performed By: #### L 100.0100 #### [facility] [address] [place], [place], [address] PAPSMR Comment Normal . [facility] Comment on above: Order Comment: REDRA [...] occur. Performed By: #### L 100.0100 #### [facility] [address] [place], [place], [address] PERFORM Comment Normal . [facility] Comment on above: Order Comment: REDRA W. PREVIOUS SPECIMEN REJECTED DUE TO CLOTTED SPECIMEN. 01/02/251948 Result Comment: Delores Lombardo, Garbage Collector (ASCP) Performed By: #### L 100.0100 #### [facility] [address] [place], [place], [address] Urine Cultureon 04-11-2025 [facility] Mixed Gram Positive Organisms [place] Count 80,000-100,000 MIXC Mixed contaminants. Submit a new specimen if indicated. Normal [facility] Comment on above: Performed By: #### L 100.0100 #### [facility] [place], [address] Dry End Tester Office Visit Reporton 04-09-2025 Dry End Tester Office Visit Report [facility] [address], [address] [place] [address] OFFICE VISIT Date of Service: 04/09/25 MR#: [id number] Acct: [id number] Name: LUZ OLIVEIRA Rep #: [id number] : 2000 Provider: Dr. Geraldine storey MD Age/Sex: 24/F Location: [facility] Status: Signed Intake Vital Signs 01/02/25 18:31 03/13/25 11:49 04/09/25 10:39 04/09/25 10:40 Height 5 ft 1 in 5 ft 1 in 5 ft 1 in 5 ft 1 in Weight: 194 lb 8 oz BMI 36.7 BP 106/69 Intake Visit Reasons: *NEW* NOB LMP 02/02, KIMO 11/09 per Handbell Choir Director Required: No Is patient in pain?: Yes (cramping with urination) Allergies escitalopram (From Lexapro) Adverse Reaction (Severe, Verified 04/09/25 10:39) SUICIDAL citalopram hydrobromide (From Celexa) Adverse Reaction (Verified 04/09/25 10:39) Other Medications ???Medication ???Instructions ???Recorded ???Confirmed ???Type rgqtobcs-hgc-Rk-FA 1 mg 1 tab PO DAILY 08/09/22 04/09/25 H istory tablet Last Menstrual Period: 02/02/25 Zika: Zika virus screening: Negative : No PFSH PFSH Medical History (Updated 04/09/25 @ 10:50 by Remedios Wong) Congenital szglbu-umxqoqb-ovlxr reflux Surgical History [place] teeth removed Family History Grandmother Breast cancer Brain cancer Grandfather CVA (cerebral vascular accident) Mother Diabetes Heart failure MRSA carrier History of recurrent miscarriages Father Hypertension Social History adopted: No household members: spouse and children housing: house number of children: 1 current occupation: [employer] current occupational exposures/hazards: No pets and [...] 3-4 times per week duration: 15-30 minutes/day kalpana/pentecostal: Synagogue seatbelt use: always do you feel safe at home: Yes 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 Date Name GA/Weeks Outcome Route Bth Weight Infant Gen Labor Lgth Anesthesia Del Locatn Provider FOB 10/11/18 Chemical 4 spontaneous 03/30/23 Amanda 39 live - full term vacuum 6lbs 1oz Female epidural [place] Delivery Date: 03/30/23 Last Updated [...] Normal am (more content not included)... Normal [facility] Protein+Creatinine Ratio,Uri neon 04-09-2025 PROT:CRE RATIO 58 mg/g CRE Normal 0-200 [facility] Comment on above: Performed By: #### L 100.0100 #### [facility] [address] [place], [address] Protein (U) [Mass/Vol] 15.6 mg/dL High 0.0-12.0 [facility] Comment on above: Performed By: #### L 100.0100 #### [facility] [address] [place], [address] Transvaginal w/Preg USon Transvaginal w/Preg US [facility] [address] [place], [place] [address] Transvaginal w/Preg US MR#: [id number] Acct: [id number] Name: LUZ OLIVEIRA Rep #: [id number] : 2000 F 24 From: Maxwell Ponce MD PCP: Care Physician,No Primary Status: REG CLI Study: Transvaginal w/Preg US Date of Exam: 03/15/25 Exam# [id number] Ordering Dr: Remedios Garcia [employer] -[employer] PROCEDURE: TRANSVAGINAL W/PREG US 03/15/2025 REASON [...] follow-up. 2. Small perigestational hemorrhage. Reading Location: [id number] CC: JARAD Garcia; No Primary Care Physician Power Shovel Engineer: Signed Normal [facility] hCG Titer Quant., Serumon HCG QUANT. 7025 mIU/mL High <9 non-preg [facility] Comment on above: Result Comment: Gest ational Age 0.2-1 Week: 5-50 mIU/mL 1-2 Weeks: 50-500 mIU/mL 2-3 Weeks: 100-5000 mIU/mL 3-4 Weeks: 500-10,000 mIU/mL 4-5 Weeks:1000-50,000 mIU/mL 5-6 Weeks: 10,000-100,000 mIU/mL 6-8 Weeks: 15,000-200,000 mIU/mL 2-3 Months:10,000-100,000 mIU/mL Performed By: #### L 100.0100 #### [facility] [address] [place], [address] Office Visit Reporton 2024 Office Visit Report [facility] [address] [place] [address] OFFICE VISIT Date of Service: 03/13/25 MR#: [id number] Acct: [id number] Patient: LUZ OLIVEIRA Rep #: [id number] : 2000 Provider: JARAD moctezuam Age/Sex: 24/F Location: [facility] Status: Signed Intake Vital Signs 01/02/25 18:31 03/13/25 11:49 Height 5 ft 1 in 5 ft 1 in Weight: 200 lb 6 oz BMI 37.8 BP 118/72 Intake Visit Reasons: Pre New OB, Confirm preg, Vitals Handbell Choir Director Required: No Is patient in pain?: No Allergies escitalopram (From Lexapro) Adverse Reaction (Severe, Verified 03/13/25 11:12) SUICIDAL citalopram hydrobromide (From Celexa) Adverse Reaction (Verified 03/13/25 11:12) Other Medications ???Medication ???Instructions ???Recorded ???Confirmed ???Type musdlilr-xxe-Uu-FA 1 mg 1 tab PO DAILY 08/09/22 [...] Pt with C/O spotting since last night. [facility] notified in office. HcG and TV [...] Acute (9) Autism: Status: Acute (10) Congenital lgzpuj-htsgcrf-rccmw reflux: Status: Acute Comment: Recurrent UTI's and Kidney stones Orders: Orders hCG Titer Quant., Serum Today Remedios Garcia [employer], [employer]-C O20.9 - Hemorrhage in early , unspecified [...] risk , unspecified, unspecified trimester HIV 04/09/25 ATNWAN Lee NPC O09.90 - Supervision of high [...] fallen in the past year?: No 03/13/25 7658 (more content not included)... Normal [facility] hCG Titer Quant., Serumon HCG QUANT. 3759 mIU/mL High <9 non-preg [facility] Comment on above: Result Comment: Gest ational Age 0.2-1 Week: 5-50 mIU/mL 1-2 Weeks: 50-500 mIU/mL 2-3 Weeks: 100-5000 mIU/mL 3-4 Weeks: 500-10,000 mIU/mL 4-5 Weeks:1000-50,000 mIU/mL 5-6 Weeks: 10,000-100,000 mIU/mL 6-8 Weeks: 15,000-200,000 mIU/mL 2-3 Months:10,000-100,000 mIU/mL Performed By: #### L 100.0100 #### [facility] [address] [facility] [place], [place], [id number] Culture, Blood (WB)on 2024 CUB Blood cultures x2, from two different sites No growth in 5 days. Normal [facility] Comment on above: Performed By: #### M 100.678, M100.2200, L400.0001 #### [facility] [address] [facility] [place], [place], [address] Urine Cultureon 01-04-2025 [facility] Presumptive E. coli [place] Count 25,000-50,000 Presumptive E. coli: REACTION Ampicillin [...] TMP SMX Islt BRANDI <=20 S Normal [facility] Comment on above: Performed By: #### M 100.678, M100.2200, L400.0001 #### [facility] [address] [facility] [place], [address] Abdomen/Pelvis W IV Cont ONL Yon 01-02-2025 Abdomen/Pelvis W IV Cont ONLY [facility] [address] [place], [place] [address] Abdomen/Pelvis W IV Cont ONLY MR#: [id number] Acct: [id number] Name: LUZ OLIVEIRA Rep #: [id number] : 2000 F 24 From: Yari Reyes nd, MD PCP: Care Physician,No Primary Status: REG ER Study: Abdomen/Pelvis W IV Cont ONLY Date of Exam: Exam# [id number] Ordering Dr: Mendez Gardner DO PROCEDURE: ABDOMEN/PELVIS [...] recommended. 3. Diffuse hepatic steatosis. Reading Location: [facility] CC: Dr. Mendez Gardner, DO; No Primary Care Physician Power Shovel Engineer: Signed Normal [facility] CBC W/Diff, Automatedon 12-10 Absolute Lymph 0.64 X10 3/uL Low 0.83-4.51 [facility] Comment on above: Order Comment: REDRA W. PREVIOUS SPECIMEN REJECTED DUE TO CLOTTED SPECIMEN. 01/02/251948 Performed By: #### L 100.0100 #### [facility] [address] [place], [address] Absolute Neut 9.4 X10 3/uL High 2.0-7.7 [facility] Comment on above: Order Comment: REDRA W. PREVIOUS SPECIMEN REJECTED DUE TO CLOTTED SPECIMEN. 01/02/251948 Performed By: #### L 100.0100 #### [facility] [address] [place], [address] Basophils/100 WBC (Bld) 0.1 % Normal 0-1 [facility] Comment on above: Order Comment: REDRA W. PREVIOUS SPECIMEN REJECTED DUE TO CLOTTED SPECIMEN. 01/02/251948 Performed By: #### L 100.0100 #### [facility] [address] [place], [address] Eosinophils/100 WBC (Bld) 0.0 % Normal 0-5 [facility] Comment on above: Order Comment: REDRA W. PREVIOUS SPECIMEN REJECTED DUE TO CLOTTED SPECIMEN. 01/02/251948 Performed By: #### L 100.0100 #### [facility] [address] [place], [address] Erythrocyte distribution width (RBC) [Ratio] 12.4 % Normal 11.6-14.6 [facility] Comment on above: Order Comment: REDRA W. PREVIOUS SPECIMEN REJECTED DUE TO CLOTTED SPECIMEN. 01/02/251948 Performed By: #### L 100.0100 #### [facility] [address] [place], [address] Hematocrit (Bld) [Volume fraction] 41.9 % Normal 37-47 [facility] Comment on above: Order Comment: REDRA W. PREVIOUS SPECIMEN REJECTED DUE TO CLOTTED SPECIMEN. 01/02/251948 Performed By: #### L 100.0100 #### [facility] [address] [place], [address] Hemoglobin (Bld) [Mass/Vol] 14.6 g/dL Normal 12.0-15.0 [facility] Comment on above: Order Comment: REDRA W. PREVIOUS SPECIMEN REJECTED DUE TO CLOTTED SPECIMEN. 01/02/251948 Performed By: #### L 100.0100 #### [facility] [address] [place], [address] IG% 0.600 Normal 0.0-0.9 [facility] Comment on above: Order Comment: REDRA W. PREVIOUS SPECIMEN REJECTED DUE TO CLOTTED SPECIMEN. 01/02/251948 Result Comment: IG% - Immature Granulocytes (promyelocytes, myelocytes and metamyelocytes) > 1% indicates that a LEFT SHIFT is Present. Performed By: #### L 100.0100 #### [facility] [address] [place], [address] Lymphocytes/100 WBC (Bld) 5.9 % Low 19-41 [facility] Comment on above: Order Comment: REDRA W. PREVIOUS SPECIMEN REJECTED DUE TO CLOTTED SPECIMEN. 01/02/251948 Performed By: #### L 100.0100 #### [facility] [address] [place], [address] MCH (RBC) [Entitic mass] 30.8 pg Normal 27.0-32.0 [facility] Comment on above: Order Comment: REDRA W. PREVIOUS SPECIMEN REJECTED DUE TO CLOTTED SPECIMEN. 01/02/251948 Performed By: #### L 100.0100 #### [facility] [address] [place], [address] MCHC (RBC) [Mass/Vol] 34.8 g/dL Normal 32-36 [facility] Comment on above: Order Comment: REDRA W. PREVIOUS SPECIMEN REJECTED DUE TO CLOTTED SPECIMEN. 01/02/251948 Performed By: #### L 100.0100 #### [facility] [address] [place], [address] MCV (RBC) [Entitic vol] 88.4 fL Normal 81-99 [facility] Comment on above: Order Comment: REDRA W. PREVIOUS SPECIMEN REJECTED DUE TO CLOTTED SPECIMEN. 01/02/251948 Performed By: #### L 100.0100 #### [facility] [address] [place], [address] Monocytes/100 WBC (Bld) 5.9 % Normal 0-10 [facility] Comment on above: Order Comment: REDRA W. PREVIOUS SPECIMEN REJECTED DUE TO CLOTTED SPECIMEN. 01/02/251948 Performed By: #### L 100.0100 #### [facility] [address] [place], [address] Neutrophils/100 WBC (Bld) 87.5 % High 47-70 [facility] Comment on above: Order Comment: REDRA W. PREVIOUS SPECIMEN REJECTED DUE TO CLOTTED SPECIMEN. 01/02/251948 Performed By: #### L 100.0100 #### [facility] [address] [place], [address] Nucleated RBC (Bld) [#/Vol] 0 10*3/uL Normal 0-5 [facility] Comment on above: Order Comment: REDRA W. PREVIOUS SPECIMEN REJECTED DUE TO CLOTTED SPECIMEN. 01/02/251948 Performed By: #### L 100.0100 #### [facility] [address] [place], [address] Platelet mean volume (Bld) [Entitic vol] 10.2 fL Normal 6.2-12.0 [facility] Comment on above: Order Comment: REDRA W. PREVIOUS SPECIMEN REJECTED DUE TO CLOTTED SPECIMEN. 01/02/251948 Performed By: #### L 100.0100 #### [facility] [address] [place], [address] Platelets (Bld) [#/Vol] 188 10*3/uL Normal 150-450 [facility] Comment on above: Order Comment: REDRA W. PREVIOUS SPECIMEN REJECTED DUE TO CLOTTED SPECIMEN. 01/02/251948 Performed By: #### L 100.0100 #### [facility] [address] [place], [address] RBC (Bld) [#/Vol] 4.74 10*6/uL Normal 4.2-5.4 [facility] Comment on above: Order Comment: REDRA W. PREVIOUS SPECIMEN REJECTED DUE TO CLOTTED SPECIMEN. 01/02/251948 Performed By: #### L 100.0100 #### [facility] [address] [place], [address] RDW SD 40.1 fl Normal 35.1-43.9 [facility] Comment on above: Order Comment: REDRA W. PREVIOUS SPECIMEN REJECTED DUE TO CLOTTED SPECIMEN. 01/02/251948 Performed By: #### L 100.0100 #### [facility] [address] [place], [address] WBC (Bld) [#/Vol] 10.8 10*3/uL Normal 4.4-11.0 [facility] Comment on above: Order Comment: REDRA W. PREVIOUS SPECIMEN REJECTED DUE TO CLOTTED SPECIMEN. 01/02/251948 Performed By: #### L 100.0100 #### [facility] [address] [place], [address] Absolute Neut Normal 2.0-7.7 [facility] Comment on above: Result Comment: This specimen has been REJECTED due to Laboratory criteria: Clotted. ED-ELVIN has been notified of need of recollection. 01/02/251947 Performed By: #### M 100.678, M100.2200, L400.0001 #### [facility] [address] [place], [address] HCT Normal 37-47 [facility] Comment on above: Result Comment: This specimen has been REJECTED due to Laboratory criteria: Clotted. ED-ELVIN has been notified of need of recollection. 01/02/251947 Performed By: #### M 100.678, M100.2200, L400.0001 #### [facility] [address] [place], [address] HGB Normal 12.0-15.0 [facility] Comment on above: Result Comment: This specimen has been REJECTED due to Laboratory criteria: Clotted. ED-ELVIN has been notified of need of recollection. 01/02/251947 Performed By: #### M 100.678, M100.2200, L400.0001 #### [facility] [address] [place], [address] MCH Normal 27.0-32.0 [facility] Comment on above: Result Comment: This specimen has been REJECTED due to Laboratory criteria: Clotted. ED-ELVIN has been notified of need of recollection. 01/02/251947 Performed By: #### M 100.678, M100.2200, L400.0001 #### [facility] [address] [place], [address] MCHC Normal 32-36 [facility] Comment on above: Result Comment: This specimen has been REJECTED due to Laboratory criteria: Clotted. ED-ELVIN has been notified of need of recollection. 01/02/251947 Performed By: #### M 100.678, M100.2200, L400.0001 #### [facility] [address] [place], [address] MCV Normal 81-99 [facility] Comment on above: Result Comment: This specimen has been REJECTED due to Laboratory criteria: Clotted. ED-ELVIN has been notified of need of recollection. 01/02/251947 Performed By: #### M 100.678, M100.2200, L400.0001 #### [facility] [address] [place], [address] NEUT% Normal 47-70 [facility] Comment on above: Result Comment: This specimen has been REJECTED due to Laboratory criteria: Clotted. ED-ELVIN has been notified of need of recollection. 01/02/251947 Performed By: #### M 100.678, M100.2200, L400.0001 #### [facility] [address] [place], [address] PLT Normal 150-450 [facility] Comment on above: Result Comment: This specimen has been REJECTED due to Laboratory criteria: Clotted. ED-ELVIN has been notified of need of recollection. 01/02/251947 Performed By: #### M 100.678, M100.2200, L400.0001 #### [facility] [address] [place], [address] RBC Normal 4.2-5.4 [facility] Comment on above: Result Comment: This specimen has been REJECTED due to Laboratory criteria: Clotted. ED-ELVIN has been notified of need of recollection. 01/02/251947 Performed By: #### M 100.678, M100.2200, L400.0001 #### [facility] [address] [place], [address] RDW CV Normal 11.6-14.6 [facility] Comment on above: Result Comment: This specimen has been REJECTED due to Laboratory criteria: Clotted. ED-ELVIN has been notified of need of recollection. 01/02/251947 Performed By: #### M 100.678, M100.2200, L400.0001 #### [facility] [address] [place], [address] RDW SD Normal 35.1-43.9 [facility] Comment on above: Result Comment: This specimen has been REJECTED due to Laboratory criteria: Clotted. ED-ELVIN has been notified of need of recollection. 01/02/251947 Performed By: #### M 100.678, M100.2200, L400.0001 #### [facility] [address] [place], [address] WBC Normal 4.4-11.0 [facility] Comment on above: Result Comment: This specimen has been REJECTED due to Laboratory criteria: Clotted. ED-ELVIN has been notified of need of recollection. 01/02/251947 Performed By: #### M 100.678, M100.2200, L400.0001 #### [facility] [address] [place], [address] Comprehensive Metabolic Prof ilon 01-02-2025 Albumin [Mass/Vol] 4.5 g/dL Normal 3.5-5.0 [facility] Comment on above: Performed By: #### M 100.678, M100.2200, L400.0001 #### [facility] [address] [place], [address] Albumin/Globulin [Mass ratio] 1.3 {ratio} Normal 0.9-2.4 [facility] Comment on above: Performed By: #### M 100.678, M100.2200, L400.0001 #### [facility] [address] [place], [address] ALK PHOS 69 U/L Normal 35-104 [facility] Comment on above: Performed By: #### M 100.678, M100.2200, L400.0001 #### [facility] [address] [place], [address] ALT [Catalytic activity/Vol] 50 U/L High <=34 [facility] Comment on above: Performed By: #### M 100.678, M100.2200, L400.0001 #### [facility] [address] [place], [address] AST [Catalytic activity/Vol] 28 U/L Normal <=31 [facility] Comment on above: Performed By: #### M 100.678, M100.2200, L400.0001 #### [facility] [address] [place], [address] Bilirubin [Mass/Vol] 0.96 mg/dL Normal 0.00-1.30 [facility] Comment on above: Performed By: #### M 100.678, M100.2200, L400.0001 #### [facility] [address] [place], [address] BUN/CRE 13.3 RATIO Normal 10-20 [facility] Comment on above: Performed By: #### M 100.678, M100.2200, L400.0001 #### [facility] [address] [place], [address] Calcium [Mass/Vol] 9.6 mg/dL Normal 7.6-11.0 [facility] Comment on above: Performed By: #### M 100.678, M100.2200, L400.0001 #### [facility] [address] [place], [address] Chloride [Moles/Vol] 102 mmol/L Normal 98-108 [facility] Comment on above: Performed By: #### M 100.678, M100.2200, L400.0001 #### [facility] [address] [place], [address] CO2 [Moles/Vol] 23.0 mmol/L Normal 21.0-32.0 [facility] Comment on above: Performed By: #### M 100.678, M100.2200, L400.0001 #### [facility] [address] [place], [address] Creatinine [Mass/Vol] 0.93 mg/dL Normal 0.70-1.20 [facility] Comment on above: Performed By: #### M 100.678, M100.2200, L400.0001 #### [facility] [address] [place], [address] ECRCL 94.15 ml/min Normal 50-250 [facility] Comment on above: Performed By: #### M 100.678, M100.2200, L400.0001 #### [facility] [address] [place], [address] GAP 13 Normal 5-15 [facility] Comment on above: Performed By: #### M 100.678, M100.2200, L400.0001 #### [facility] [address] [place], [address] GFR/1.73 sq M.predicted among non-blacks MDRD (S/P/Bld) [Vol rate/Area] 87 mL/min/{1.73_m2} Normal >60 [facility] Comment on above: Result Comment: mL/m in/1.73m2 CKD-EPI Creatinine Equation (2020) Performed By: #### M 100.678, M100.2200, L400.0001 #### [facility] [address] [place], [address] Globulin (S) [Mass/Vol] 3.4 g/dL Normal 2.2-4.2 [facility] Comment on above: Performed By: #### M 100.678, M100.2200, L400.0001 #### [facility] [address] [place], [address] Glucose [Mass/Vol] 109 mg/dL High 70-99 [facility] Comment on above: Performed By: #### M 100.678, M100.2200, L400.0001 #### [facility] [address] [place], [address] Potassium [Moles/Vol] 3.4 mmol/L Normal 3.3-5.1 [facility] Comment on above: Performed By: #### M 100.678, M100.2200, L400.0001 #### [facility] [address] [place], [address] Sodium [Moles/Vol] 138 mmol/L Normal 133-145 [facility] Comment on above: Performed By: #### M 100.678, M100.2200, L400.0001 #### [facility] [address] [place], [address] T PROT 7.9 g/dL Normal 5.9-8.4 [facility] Comment on above: Performed By: #### M 100.678, M100.2200, L400.0001 #### [facility] [address] [place], [address] Urea nitrogen [Mass/Vol] 12 mg/dL Normal 4-19 [facility] Comment on above: Performed By: #### M 100.678, M100.2200, L400.0001 #### [facility] [address] [place], [address] Emergency Department Summary on 01-02-2025 Emergency Department Summary [facility] Medical Records Department [address] [place] [address] Emergency Department Summary 01/02/25 MR#: [id number] Acct: [id number] Name: LUZ OLIVEIRA Rep #: [id number] : 2000 24 From: Mendez Gardner DO [...] States that she tried Azo at home. [facility] Medical History Lumbar radiculopathy, acute Acute lumbar myofascial strain Blunt abdominal trauma Chest wall contusion Cervical strain, acute Concussion without loss of consciousness Crushing injury of right great toe, initial encounter Congenital wjnnbe-jeeirmd-kxawk reflux Home Medications ???Medication ???Instructions ???Recorded ???Last Taken ???Type lucmiwop-dfi-Gt-FA 1 mg 1 tab PO DAILY 08/09/22 [...] (cerebral vascular accident) Mother Diabetes Surgical History [place] teeth removed Social History household members: spouse [...] following commands knew that she was at [facility] years 2024 Skin:, No rashes or [...] Respiratory Rat (more content not included)... Normal [facility] Lactic Acidon 01-02-2025 Lactate [Moles/Vol] 1.1 mmol/L Normal 0.0-2.0 [facility] Comment on above: Order Comment: Y Performed By: #### M 100.678, M100.2200, L400.0001 #### [facility] [address] [facility] [place], [place], [address] Lipaseon 01-02-2025 Lipase [Catalytic activity/Vol] 19 U/L Normal 13-75 [facility] Comment on above: Result Comment: Pletiny paez note: LIPASE revised reference range effective 23. New Lipase methodology. Expected to produce lower values than the previous assay method. NEW Reference Range: 13 - 75 U/L Performed By: #### M 100.678, M100.2200, L400.0001 #### [facility] [address] [facility] [place], [address] M100.678on 01-02-2025 M100.678 Pending SARS-CoV-2 (COVID 19) Negative INFLUENZA A Negative INFLUENZA B Negative RSV PCR Negative Normal [facility] Comment on above: Performed By: #### M 100.678, M100.2200, L400.0001 #### [facility] [address] [place], [address] Partial Thromboplast Timeon 01-02-2025 aPTT Coag (Bld) [Time] 33.7 s Normal 24.1-36.2 [facility] Comment on above: Performed By: #### M 100.678, M100.2200, L400.0001 #### [facility] [address] [place], [address] ,Serum,hCG Quali.on 01-02-2025 HCG, SERUM QUAL Negative Normal [facility] Comment on above: Performed By: #### M 100.678, M100.2200, L400.0001 #### [facility] [address] [place], [address] Prothrombin Time w/INRon INR Coag (PPP) [Relative time] 1.1 {INR} Normal [facility] Comment on above: Performed By: #### M 100.678, M100.2200, L400.0001 #### [facility] [address] [place], [address] PT Coag (PPP) [Time] 14.5 s Normal 11.7-14.9 [facility] Comment on above: Performed By: #### M 100.678, M100.2200, L400.0001 #### [facility] [address] [place], [address] Urinalysis, Completeon 01-02 EPI,SQUAMOUS 5-10 SEEN Normal 5-10 [facility] Comment on above: Order Comment: CLEAN CATCH Performed By: #### M 100.678, M100.2200, L400.0001 #### [facility] [address] [place], [address] BACTERIA 3+ /hpf Normal None Seen [facility] Comment on above: Order Comment: CLEAN CATCH Performed By: #### M 100.678, M100.2200, L400.0001 #### [facility] [address] [place], [address] RBC 5-10 SEEN Normal 0-5 [facility] Comment on above: Order Comment: CLEAN CATCH Performed By: #### M 100.678, M100.2200, L400.0001 #### [facility] [address] [place], [address] WBC >100 SEEN Normal 0-5 [facility] Comment on above: Order Comment: CLEAN CATCH Performed By: #### M 100.678, M100.2200, L400.0001 #### [facility] [address] [place], [address] Mucus Ql (Urine sed) 0 SEEN Normal [facility] Comment on above: Order Comment: CLEAN CATCH Performed By: #### M 100.678, M100.2200, L400.0001 #### [facility] [address] [place], [address] XR SPINE CERVICAL AP/LATon 0 02-19-2024 XR [...] 02/19/2024 1:39:46 AM Ordering Provider: KIRSTEN Miller [facility] [place] B12on 10-19-2023 Cobalamin (Vitamin B12) [Mass/Vol] 279 pg/mL Normal 211-911 [facility] [place] Comment on above: Performed By: #### G FR, LIPID, HFP, A1C, IBC, TSH, CBC, ANEU, FT4, FERR, ADIFF, CMP, FE, VIDH, FT3 #### [address] [address] #### FOL, B12 #### [address] [address] FOLon 10-19-2023 Folate 8.29 ng/mL Normal 5.38-24.00 [facility] [place] Comment on above: Performed By: #### G FR, LIPID, HFP, A1C, IBC, TSH, CBC, ANEU, FT4, FERR, ADIFF, CMP, FE, VIDH, FT3 #### [address] [address] #### FOL, B12 #### [address] [address] .Auto Diffon 10-15-2023 Basophil, Absolute 0.0 10 3/mcL Normal 0.0-0.2 [facility]) Comment on above: Performed By: #### G FR, LIPID, HFP, A1C, IBC, TSH, CBC, ANEU, FT4, FERR, ADIFF, CMP, FE, VIDH, FT3 #### [address] [address] #### FOL, B12 #### [address] [address] Basophils/100 WBC (Bld) 0.2 % Normal 0.0-2.5 [facility] [place] Comment on above: Performed By: #### G FR, LIPID, HFP, A1C, IBC, TSH, CBC, ANEU, FT4, FERR, ADIFF, CMP, FE, VIDH, FT3 #### [address] [address] #### FOL, B12 #### [address] [address] Eosinophil, Absolute 0.0 10 3/mcL Normal 0.0-0.4 [facility] ([place] Comment on above: Performed By: #### G FR, LIPID, HFP, A1C, IBC, TSH, CBC, ANEU, FT4, FERR, ADIFF, CMP, FE, VIDH, FT3 #### [address] [address] #### FOL, B12 #### [address] [address] Eosinophils/100 WBC (Bld) 0.6 % Normal 0.0-7.0 [facility] ([place]) Comment on above: Performed By: #### G FR, LIPID, HFP, A1C, IBC, TSH, CBC, ANEU, FT4, FERR, ADIFF, CMP, FE, VIDH, FT3 #### [address] [address] #### FOL, B12 #### [address] [address] Lymphocyte, Absolute 1.5 10 3/mcL Normal 0.8-3.9 [facility] ([place] Comment on above: Performed By: #### G FR, LIPID, HFP, A1C, IBC, TSH, CBC, ANEU, FT4, FERR, ADIFF, CMP, FE, VIDH, FT3 #### [address] [address] #### FOL, B12 #### [address] [address] Lymphocytes/100 WBC (Bld) 23.2 % Normal 10.0-50.0 [facility] ([place]) Comment on above: Performed By: #### G FR, LIPID, HFP, A1C, IBC, TSH, CBC, ANEU, FT4, FERR, ADIFF, CMP, FE, VIDH, FT3 #### [address] [address] #### FOL, B12 #### [address] [address] Monocyte, Absolute 0.4 10 3/mcL Normal 0.2-1.0 [facility] ([place]) Comment on above: Performed By: #### G FR, LIPID, HFP, A1C, IBC, TSH, CBC, ANEU, FT4, FERR, ADIFF, CMP, FE, VIDH, FT3 #### [address] [address] #### FOL, B12 #### [address] [address] Monocytes/100 WBC (Bld) 5.6 % Normal 1.7-13.0 [facility] [place] Comment on above: Performed By: #### G FR, LIPID, HFP, A1C, IBC, TSH, CBC, ANEU, FT4, FERR, ADIFF, CMP, FE, VIDH, FT3 #### [address] [address] #### FOL, B12 #### [address] [address] Neutrophils/100 WBC (Bld) 70.4 % Normal 37.0-80.0 [facility] [place] Comment on above: Performed By: #### G FR, LIPID, HFP, A1C, IBC, TSH, CBC, ANEU, FT4, FERR, ADIFF, CMP, FE, VIDH, FT3 #### [address] [address] #### FOL, B12 #### [address] [address] .GFRon 10-15-2023 GFR Non- 73 ml/min/1.73sqm Normal [facility] [place] Comment on above: Result Comment: GFR Population [...] FERR, ADIFF, CMP, FE, VIDH, FT3 #### [address] [address] #### FOL, B12 #### [address] [address] GFR 89 ml/min/1.73sqm Normal [facility] [place] Comment on above: Result Comment: GFR Population [...] FERR, ADIFF, CMP, FE, VIDH, FT3 #### [address] [address] #### FOL, B12 #### [address] [address] .NEUABSon 10-15-2023 Neutrophil, Absolute 4.5 10 3/mcL Normal 2.9-6.2 [facility] ([place] Comment on above: Performed By: #### G FR, LIPID, HFP, A1C, IBC, TSH, CBC, ANEU, FT4, FERR, ADIFF, CMP, FE, VIDH, FT3 #### [address] [address] #### FOL, B12 #### [address] [address] A1Con 10-15-2023 HbA1c (Bld) [Mass fraction] 4.9 % Normal 4.3-6.4 [facility] [place] Comment on above: Performed By: #### G FR, LIPID, HFP, A1C, IBC, TSH, CBC, ANEU, FT4, FERR, ADIFF, CMP, FE, VIDH, FT3 #### [address] [address] #### FOL, B12 #### [place] [address] CBCon 10-15-2023 Erythrocyte distribution width (RBC) [Ratio] 14.1 % Normal 11.5-14.5 [facility] [place] Comment on above: Performed By: #### G FR, LIPID, HFP, A1C, IBC, TSH, CBC, ANEU, FT4, FERR, ADIFF, CMP, FE, VIDH, FT3 #### [address] [address] #### FOL, B12 #### [address] [address] Hematocrit (Bld) [Volume fraction] 42.4 % Normal 37.0-47.0 [facility] [place] Comment on above: Performed By: #### G FR, LIPID, HFP, A1C, IBC, TSH, CBC, ANEU, FT4, FERR, ADIFF, CMP, FE, VIDH, FT3 #### [address] [address] #### FOL, B12 #### [address] [address] Hgb 14.5 G/dL Normal 12.0-16.0 [facility] [place] Comment on above: Performed By: #### G FR, LIPID, HFP, A1C, IBC, TSH, CBC, ANEU, FT4, FERR, ADIFF, CMP, FE, VIDH, FT3 #### [address] [address] #### FOL, B12 #### [address] [address] MCH (RBC) [Entitic mass] 30.8 pg Normal 27.0-31.2 [facility] [place] Comment on above: Performed By: #### G FR, LIPID, HFP, A1C, IBC, TSH, CBC, ANEU, FT4, FERR, ADIFF, CMP, FE, VIDH, FT3 #### [address] [address] #### FOL, B12 #### [address] [address] MCHC 34.2 G/dL Normal 33.0-37.0 [facility] [place] Comment on above: Performed By: #### G FR, LIPID, HFP, A1C, IBC, TSH, CBC, ANEU, FT4, FERR, ADIFF, CMP, FE, VIDH, FT3 #### [address] [address] #### FOL, B12 #### [address] [address] MCV (RBC) [Entitic vol] 90.3 fL Normal 80.0-94.0 [facility] [place] Comment on above: Performed By: #### G FR, LIPID, HFP, A1C, IBC, TSH, CBC, ANEU, FT4, FERR, ADIFF, CMP, FE, VIDH, FT3 #### [address] [address] #### FOL, B12 #### [address] [address] Platelet 237 10 3/mcL Normal 130-400 [facility] [place] Comment on above: Performed By: #### G FR, LIPID, HFP, A1C, IBC, TSH, CBC, ANEU, FT4, FERR, ADIFF, CMP, FE, VIDH, FT3 #### [address] [address] #### FOL, B12 #### [address] [address] Platelet mean volume (Bld) [Entitic vol] 8.6 fL Normal 7.4-10.4 [facility] [place] Comment on above: Performed By: #### G FR, LIPID, HFP, A1C, IBC, TSH, CBC, ANEU, FT4, FERR, ADIFF, CMP, FE, VIDH, FT3 #### [address] [address] #### FOL, B12 #### [address] [address] RBC 4.69 10 6/mcL Normal 4.20-5.40 [facility] [place] Comment on above: Performed By: #### G FR, LIPID, HFP, A1C, IBC, TSH, CBC, ANEU, FT4, FERR, ADIFF, CMP, FE, VIDH, FT3 #### [address] [address] #### FOL, B12 #### [place] [address] WBC 6.4 10 3/mcL Normal 4.6-10.8 [facility] [place] Comment on above: Performed By: #### G FR, LIPID, HFP, A1C, IBC, TSH, CBC, ANEU, FT4, FERR, ADIFF, CMP, FE, VIDH, FT3 #### [address] [address] #### FOL, B12 #### [address] [address] CMPon 10-15-2023 BUN/Creatinine Ratio 17 ratio Normal 7-27 [facility] ([place] Comment on above: Performed By: #### G FR, LIPID, HFP, A1C, IBC, TSH, CBC, ANEU, FT4, FERR, ADIFF, CMP, FE, VIDH, FT3 #### [address] [address] #### FOL, B12 #### [address] [address] Calcium [Mass/Vol] 9.5 mg/dL Normal 8.4-10.2 [facility] ([place]) Comment on above: Performed By: #### G FR, LIPID, HFP, A1C, IBC, TSH, CBC, ANEU, FT4, FERR, ADIFF, CMP, FE, VIDH, FT3 #### [address] [address] #### FOL, B12 #### [address] [address] Chloride [Moles/Vol] 101 mmol/L Normal 98-107 [facility] [facility] ([place] Comment on above: Performed By: #### G FR, LIPID, HFP, A1C, IBC, TSH, CBC, ANEU, FT4, FERR, ADIFF, CMP, FE, VIDH, FT3 #### [address] [address] #### FOL, B12 #### [address] [address] CO2 [Moles/Vol] 27 mmol/L Normal 22-29 [facility] ([place]) Comment on above: Performed By: #### G FR, LIPID, HFP, A1C, IBC, TSH, CBC, ANEU, FT4, FERR, ADIFF, CMP, FE, VIDH, FT3 #### [address] [address] #### FOL, B12 #### [address] [address] Creatinine [Mass/Vol] 0.94 mg/dL Normal 0.55-1.02 [facility] ([place]) Comment on above: Performed By: #### G FR, LIPID, HFP, A1C, IBC, TSH, CBC, ANEU, FT4, FERR, ADIFF, CMP, FE, VIDH, FT3 #### [address] [address] #### FOL, B12 #### [address] [address] Electrolyte Balance 13.0 mEq/L Normal 4.0-15.0 [facility] ([place]) Comment on above: Performed By: #### G FR, LIPID, HFP, A1C, IBC, TSH, CBC, ANEU, FT4, FERR, ADIFF, CMP, FE, VIDH, FT3 #### [address] [address] #### FOL, B12 #### [address] [address] Glucose [Mass/Vol] 92 mg/dL Normal 70-105 [facility] ([place]) Comment on above: Performed By: #### G FR, LIPID, HFP, A1C, IBC, TSH, CBC, ANEU, FT4, FERR, ADIFF, CMP, FE, VIDH, FT3 #### [address] [address] #### FOL, B12 #### [address] [address] Potassium [Moles/Vol] 4.2 mmol/L Normal 3.5-5.1 [facility] ([place] Comment on above: Performed By: #### G FR, LIPID, HFP, A1C, IBC, TSH, CBC, ANEU, FT4, FERR, ADIFF, CMP, FE, VIDH, FT3 #### [address] [address] #### FOL, B12 #### [address] [address] Sodium [Moles/Vol] 141 mmol/L Normal 136-145 [facility] ([place]) Comment on above: Performed By: #### G FR, LIPID, HFP, A1C, IBC, TSH, CBC, ANEU, FT4, FERR, ADIFF, CMP, FE, VIDH, FT3 #### [address] [address] #### FOL, B12 #### [address] [address] Urea nitrogen [Mass/Vol] 16 mg/dL Normal 7-18 [facility] ([place] Comment on above: Performed By: #### G FR, LIPID, HFP, A1C, IBC, TSH, CBC, ANEU, FT4, FERR, ADIFF, CMP, FE, VIDH, FT3 #### [address] [address] #### FOL, B12 #### [address] [address] FEon 10-15-2023 Iron [Mass/Vol] 141 ug/dL Normal 50-170 [facility] ([place] Comment on above: Performed By: #### G FR, LIPID, HFP, A1C, IBC, TSH, CBC, ANEU, FT4, FERR, ADIFF, CMP, FE, VIDH, FT3 #### [address] [address] #### FOL, B12 #### [address] [address] Heidi 10-15-2023 Ferritin [Mass/Vol] 60.0 ng/mL Normal 8.0-252.0 [facility] ([place] Comment on above: Performed By: #### G FR, LIPID, HFP, A1C, IBC, TSH, CBC, ANEU, FT4, FERR, ADIFF, CMP, FE, VIDH, FT3 #### [address] [address] #### FOL, B12 #### [address] [address] FT3on 10-15-2023 Free T3 [Mass/Vol] 3.26 pg/mL Normal 2.30-4.00 [facility] ([place]) Comment on above: Performed By: #### G FR, LIPID, HFP, A1C, IBC, TSH, CBC, ANEU, FT4, FERR, ADIFF, CMP, FE, VIDH, FT3 #### [address] [address] #### FOL, B12 #### [address] [address] FT4on 10-15-2023 Free T4 [Mass/Vol] 1.15 ng/dL Normal 0.76-1.46 [facility] ([place]) Comment on above: Performed By: #### G FR, LIPID, HFP, A1C, IBC, TSH, CBC, ANEU, FT4, FERR, ADIFF, CMP, FE, VIDH, FT3 #### [address] [address] #### FOL, B12 #### [address] [address] HFPon 10-15-2023 Bili Indirect 0.4 mg/dL Normal [facility] ([place] Comment on above: Performed By: #### G FR, LIPID, HFP, A1C, IBC, TSH, CBC, ANEU, FT4, FERR, ADIFF, CMP, FE, VIDH, FT3 #### [address] [address] #### FOL, B12 #### [address] [address] Albumin Level 4.0 G/dL Normal 3.5-5.0 [facility] ([place] Comment on above: Performed By: #### G FR, LIPID, HFP, A1C, IBC, TSH, CBC, ANEU, FT4, FERR, ADIFF, CMP, FE, VIDH, FT3 #### [address] [address] #### FOL, B12 #### [address] [address] Albumin/Globulin [Mass ratio] 1.1 {ratio} Normal 1.1-2.5 [facility] ([place] Comment on above: Performed By: #### G FR, LIPID, HFP, A1C, IBC, TSH, CBC, ANEU, FT4, FERR, ADIFF, CMP, FE, VIDH, FT3 #### [address] [address] #### FOL, B12 #### [address] [address] ALP [Catalytic activity/Vol] 91 U/L Normal 40-135 [facility] ([place] Comment on above: Performed By: #### G FR, LIPID, HFP, A1C, IBC, TSH, CBC, ANEU, FT4, FERR, ADIFF, CMP, FE, VIDH, FT3 #### [address] [address] #### FOL, B12 #### [address] [address] ALT [Catalytic activity/Vol] 25 U/L Normal 14-59 [facility] ([place] Comment on above: Performed By: #### G FR, LIPID, HFP, A1C, IBC, TSH, CBC, ANEU, FT4, FERR, ADIFF, CMP, FE, VIDH, FT3 #### [address] [address] #### FOL, B12 #### [address] [address] AST [Catalytic activity/Vol] 15 U/L Normal 10-40 [facility] ([place] Comment on above: Performed By: #### G FR, LIPID, HFP, A1C, IBC, TSH, CBC, ANEU, FT4, FERR, ADIFF, CMP, FE, VIDH, FT3 #### [address] [address] #### FOL, B12 #### [place] [id number] Bili Direct 0.2 mg/dL Normal 0.0-0.2 [facility] ([place] Comment on above: Result Comment: Use of this assay is not recommended for patients undergoing treatment with eltrombopag due to the potential for falsely elevated results. Performed By: #### G FR, LIPID, HFP, A1C, IBC, TSH, CBC, ANEU, FT4, FERR, ADIFF, CMP, FE, VIDH, FT3 #### [address] [address] #### FOL, B12 #### [place] [address] Bili Total 0.6 mg/dL Normal 0.2-1.0 [facility] ([place] Comment on above: Result Comment: Use of this assay is not recommended for patients undergoing treatment with eltrombopag due to the potential for falsely elevated results. Performed By: #### G FR, LIPID, HFP, A1C, IBC, TSH, CBC, ANEU, FT4, FERR, ADIFF, CMP, FE, VIDH, FT3 #### [address] [address] #### FOL, B12 #### [address] [address] Globulin 3.7 G/dL Normal [facility] ([place] Comment on above: Performed By: #### G FR, LIPID, HFP, A1C, IBC, TSH, CBC, ANEU, FT4, FERR, ADIFF, CMP, FE, VIDH, FT3 #### [address] [address] #### FOL, B12 #### [place] [address] Total Protein 7.7 G/dL Normal 6.4-8.2 [facility] ([place] Comment on above: Performed By: #### G FR, LIPID, HFP, A1C, IBC, TSH, CBC, ANEU, FT4, FERR, ADIFF, CMP, FE, VIDH, FT3 #### [address] [address] #### FOL, B12 #### [place] [address] IBCon 10-15-2023 TIBC 330 mcg/dL Normal 250-450 [facility] ([place] Comment on above: Performed By: #### G FR, LIPID, HFP, A1C, IBC, TSH, CBC, ANEU, FT4, FERR, ADIFF, CMP, FE, VIDH, FT3 #### [address] [address] #### FOL, B12 #### [place] [id number] LABORATORYOrdered By: SYSTEM SYSTEM on 10-15-2023 25-hydroxyvitamin [...] 10-15-2023 Cholesterol [Mass/Vol] 172 mg/dL Normal 0-200 [facility] ([place]) Comment on above: Result Comment: Chol esterol Reference Interval: Less than 200 Desirable 200-239 Borderline high risk 240 and above High risk Performed By: #### G FR, LIPID, HFP, A1C, IBC, TSH, CBC, ANEU, FT4, FERR, ADIFF, CMP, FE, VIDH, FT3 #### [address] [address] #### FOL, B12 #### [address] [address] Cholesterol in HDL [Mass/Vol] 66 mg/dL High 40-60 [facility] ([place] Comment on above: Performed By: #### G FR, LIPID, HFP, A1C, IBC, TSH, CBC, ANEU, FT4, FERR, ADIFF, CMP, FE, VIDH, FT3 #### [address] [address] #### FOL, B12 #### [address] [address] Cholesterol in LDL [Mass/Vol] 80 mg/dL Normal 0-130 [facility] ([place] Comment on above: Performed By: #### G FR, LIPID, HFP, A1C, IBC, TSH, CBC, ANEU, FT4, FERR, ADIFF, CMP, FE, VIDH, FT3 #### [address] [address] #### FOL, B12 #### [address] [address] Triglyceride [Mass/Vol] 132 mg/dL Normal 0-150 [facility] ([place]) Comment on above: Result Comment: Trig lyceride Reference Interval: Less than 150 Normal 150-199 Borderline high risk 200-499 High risk 500 or higher Very high risk Performed By: #### G FR, LIPID, HFP, A1C, IBC, TSH, CBC, ANEU, FT4, FERR, ADIFF, CMP, FE, VIDH, FT3 #### [address] [address] #### FOL, B12 #### [address] [address] Laboratory - Chemistry and C hemistry - [...] 10-15-2023 TSH Qn 1.13 m[IU]/L Normal 0.36-3.74 [facility] ([place]) Comment on above: Performed By: #### G FR, LIPID, HFP, A1C, IBC, TSH, CBC, ANEU, FT4, FERR, ADIFF, CMP, FE, VIDH, FT3 #### [address] [address] #### FOL, B12 #### [place] [address] UDRUGon 10-15-2023 Amphetamine (u) Negative Normal Negative [facility] ([place]) Comment on above: Performed By: #### G FR, LIPID, HFP, A1C, IBC, TSH, CBC, ANEU, FT4, FERR, ADIFF, CMP, FE, VIDH, FT3 #### [address] [address] #### FOL, B12 #### [place] [address] Barbiturate (u) Negative Normal Negative [facility] ([place]) Comment on above: Performed By: #### G FR, LIPID, HFP, A1C, IBC, TSH, CBC, ANEU, FT4, FERR, ADIFF, CMP, FE, VIDH, FT3 #### [address] [address] #### FOL, B12 #### [place] [address] Benzodiazepine (u) Negative Normal Negative [facility] ([place]) Comment on above: Performed By: #### G FR, LIPID, HFP, A1C, IBC, TSH, CBC, ANEU, FT4, FERR, ADIFF, CMP, FE, VIDH, FT3 #### [address] [address] #### FOL, B12 #### [place] [address] Cannabinoid (u) Negative Normal Negative [facility] ([place] Comment on above: Performed By: #### G FR, LIPID, HFP, A1C, IBC, TSH, CBC, ANEU, FT4, FERR, ADIFF, CMP, FE, VIDH, FT3 #### [address] [address] #### FOL, B12 #### [place] [address] Cocaine Ql (U) Negative Normal Negative [facility] ([place] Comment on above: Performed By: #### G FR, LIPID, HFP, A1C, IBC, TSH, CBC, ANEU, FT4, FERR, ADIFF, CMP, FE, VIDH, FT3 #### [address] [address] #### FOL, B12 #### [place] [address] Methadone Ql (U) Negative Normal Negative [facility] ([place] Comment on above: Performed By: #### G FR, LIPID, HFP, A1C, IBC, TSH, CBC, ANEU, FT4, FERR, ADIFF, CMP, FE, VIDH, FT3 #### [address] [address] #### FOL, B12 #### [place] [address] Opiate (u) Negative Normal Negative [facility] ([place] Comment on above: Performed By: #### G FR, LIPID, HFP, A1C, IBC, TSH, CBC, ANEU, FT4, FERR, ADIFF, CMP, FE, VIDH, FT3 #### [address] [address] #### FOL, B12 #### [place] [address] PCP (u) Negative Normal Negative [facility] ([place] Comment on above: Performed By: #### G FR, LIPID, HFP, A1C, IBC, TSH, CBC, ANEU, FT4, FERR, ADIFF, CMP, FE, VIDH, FT3 #### [address] [address] #### FOL, B12 #### [place] [address] Urine Drugs screened: See Below Normal [facility] ([place] Comment on above: Result Comment: This drug [...] FERR, ADIFF, CMP, FE, VIDH, FT3 #### [address] [address] #### FOL, B12 #### [place] [address] VIDHon 10-15-2023 Vit. D 25-Hydroxy 12.2 ng/mL Normal [facility] ([place] Comment on above: Result Comment: Inte rpretive Values Based on Total 25(OH) Vitamin D: Deficient <20 ng/mL Insufficient 20 - <30 ng/mL Sufficient 30-100 ng/mL Performed By: #### G FR, LIPID, HFP, A1C, IBC, TSH, CBC, ANEU, FT4, FERR, ADIFF, CMP, FE, VIDH, FT3 #### [address] [address] #### FOL, B12 #### [address] [address] .Auto Diffon 03-31-2023 Basophil, Absolute 0.0 10 3/mcL Normal 0.0-0.2 [facility] ([place] Comment on above: Performed By: #### G FR, LIPID, HFP, A1C, IBC, TSH, CBC, ANEU, FT4, FERR, ADIFF, CMP, FE, VIDH, FT3 #### [address] [address] #### FOL, B12 #### [address] [address] Basophils/100 WBC (Bld) 0.1 % Normal 0.0-2.5 [facility] ([place] Comment on above: Performed By: #### G FR, LIPID, HFP, A1C, IBC, TSH, CBC, ANEU, FT4, FERR, ADIFF, CMP, FE, VIDH, FT3 #### [address] [address] #### FOL, B12 #### [address] [address] Eosinophil, Absolute 0.0 10 3/mcL Normal 0.0-0.4 [facility] ([place] Comment on above: Performed By: #### G FR, LIPID, HFP, A1C, IBC, TSH, CBC, ANEU, FT4, FERR, ADIFF, CMP, FE, VIDH, FT3 #### [address] [address] #### FOL, B12 #### [address] [address] Eosinophils/100 WBC (Bld) 0.0 % Normal 0.0-7.0 [facility] ([place] Comment on above: Performed By: #### G FR, LIPID, HFP, A1C, IBC, TSH, CBC, ANEU, FT4, FERR, ADIFF, CMP, FE, VIDH, FT3 #### [address] [address] #### FOL, B12 #### [address] [address] Lymphocyte, Absolute 1.2 10 3/mcL Normal 0.8-3.9 [facility] ([place] Comment on above: Performed By: #### G FR, LIPID, HFP, A1C, IBC, TSH, CBC, ANEU, FT4, FERR, ADIFF, CMP, FE, VIDH, FT3 #### [address] [address] #### FOL, B12 #### [address] [address] Lymphocytes/100 WBC (Bld) 11.4 % Normal 10.0-50.0 [facility] ([place] Comment on above: Performed By: #### G FR, LIPID, HFP, A1C, IBC, TSH, CBC, ANEU, FT4, FERR, ADIFF, CMP, FE, VIDH, FT3 #### [address] [address] #### FOL, B12 #### [address] [address] Monocyte, Absolute 0.8 10 3/mcL Normal 0.2-1.0 [facility] ([place] Comment on above: Performed By: #### G FR, LIPID, HFP, A1C, IBC, TSH, CBC, ANEU, FT4, FERR, ADIFF, CMP, FE, VIDH, FT3 #### [address] [address] #### FOL, B12 #### [address] [address] Monocytes/100 WBC (Bld) 7.6 % Normal 1.7-13.0 [facility] ([place] Comment on above: Performed By: #### G FR, LIPID, HFP, A1C, IBC, TSH, CBC, ANEU, FT4, FERR, ADIFF, CMP, FE, VIDH, FT3 #### [address] [address] #### FOL, B12 #### [address] [address] Neutrophils/100 WBC (Bld) 80.9 % High 37.0-80.0 [facility] ([place] Comment on above: Performed By: #### G FR, LIPID, HFP, A1C, IBC, TSH, CBC, ANEU, FT4, FERR, ADIFF, CMP, FE, VIDH, FT3 #### [address] [address] #### FOL, B12 #### [address] [address] .NEUABSon 03-31-2023 Neutrophil, Absolute 8.8 10 3/mcL High 2.9-6.2 [facility] ([place] Comment on above: Performed By: #### G FR, LIPID, HFP, A1C, IBC, TSH, CBC, ANEU, FT4, FERR, ADIFF, CMP, FE, VIDH, FT3 #### [address] [address] #### FOL, B12 #### [address] [address] CBCon 03-31-2023 Erythrocyte distribution width (RBC) [Ratio] 13.9 % Normal 11.5-14.5 [facility] ([place] Comment on above: Performed By: #### G FR, LIPID, HFP, A1C, IBC, TSH, CBC, ANEU, FT4, FERR, ADIFF, CMP, FE, VIDH, FT3 #### [address] [address] #### FOL, B12 #### [address] [address] Hematocrit (Bld) [Volume fraction] 33.1 % Low 37.0-47.0 [facility] ([place] Comment on above: Performed By: #### G FR, LIPID, HFP, A1C, IBC, TSH, CBC, ANEU, FT4, FERR, ADIFF, CMP, FE, VIDH, FT3 #### [address] [address] #### FOL, B12 #### [address] [address] Hgb 11.5 G/dL Low 12.0-16.0 [facility] ([place] Comment on above: Performed By: #### G FR, LIPID, HFP, A1C, IBC, TSH, CBC, ANEU, FT4, FERR, ADIFF, CMP, FE, VIDH, FT3 #### [address] [address] #### FOL, B12 #### [address] [address] MCH (RBC) [Entitic mass] 32.3 pg High 27.0-31.2 [facility] ([place] Comment on above: Performed By: #### G FR, LIPID, HFP, A1C, IBC, TSH, CBC, ANEU, FT4, FERR, ADIFF, CMP, FE, VIDH, FT3 #### [address] [address] #### FOL, B12 #### [address] [address] MCHC 34.7 G/dL Normal 33.0-37.0 [facility] ([place] Comment on above: Performed By: #### G FR, LIPID, HFP, A1C, IBC, TSH, CBC, ANEU, FT4, FERR, ADIFF, CMP, FE, VIDH, FT3 #### [address] [address] #### FOL, B12 #### [address] [address] MCV (RBC) [Entitic vol] 93.0 fL Normal 80.0-94.0 [facility] ([place] Comment on above: Performed By: #### G FR, LIPID, HFP, A1C, IBC, TSH, CBC, ANEU, FT4, FERR, ADIFF, CMP, FE, VIDH, FT3 #### [address] [address] #### FOL, B12 #### [address] [address] Platelet 155 10 3/mcL Normal 130-400 [facility] ([place] Comment on above: Performed By: #### G FR, LIPID, HFP, A1C, IBC, TSH, CBC, ANEU, FT4, FERR, ADIFF, CMP, FE, VIDH, FT3 #### [address] [address] #### FOL, B12 #### [address] [address] Platelet mean volume (Bld) [Entitic vol] 9.3 fL Normal 7.4-10.4 [facility] ([place] Comment on above: Performed By: #### G FR, LIPID, HFP, A1C, IBC, TSH, CBC, ANEU, FT4, FERR, ADIFF, CMP, FE, VIDH, FT3 #### [address] [address] #### FOL, B12 #### [address] [address] RBC 3.55 10 6/mcL Low 4.20-5.40 [facility] ([place] Comment on above: Performed By: #### G FR, LIPID, HFP, A1C, IBC, TSH, CBC, ANEU, FT4, FERR, ADIFF, CMP, FE, VIDH, FT3 #### [address] [address] #### FOL, B12 #### [address] [address] WBC 10.9 10 3/mcL High 4.6-10.8 [facility] ([place] Comment on above: Performed By: #### G FR, LIPID, HFP, A1C, IBC, TSH, CBC, ANEU, FT4, FERR, ADIFF, CMP, FE, VIDH, FT3 #### [address] [address] #### FOL, B12 #### [place] [address] LABORATORYOrdered By: Billie Ibarra on 03-31-2023 Basophil, [...] Ab RPR Ql (S) Non-Reactive Normal Non-Reactive [facility] ([place] Comment on above: Result Comment: The RPR [...] FERR, ADIFF, CMP, FE, VIDH, FT3 #### [address] [address] #### FOL, B12 #### [address] [address] .Auto Diffon 03-30-2023 Basophil, Absolute 0.0 10 3/mcL Normal 0.0-0.2 [facility] ([place]) Comment on above: Performed By: #### G FR, LIPID, HFP, A1C, IBC, TSH, CBC, ANEU, FT4, FERR, ADIFF, CMP, FE, VIDH, FT3 #### [address] [address] #### FOL, B12 #### [address] [address] Basophils/100 WBC (Bld) 0.1 % Normal 0.0-2.5 [facility] ([place] Comment on above: Performed By: #### G FR, LIPID, HFP, A1C, IBC, TSH, CBC, ANEU, FT4, FERR, ADIFF, CMP, FE, VIDH, FT3 #### [address] [address] #### FOL, B12 #### [address] [address] Eosinophil, Absolute 0.0 10 3/mcL Normal 0.0-0.4 [facility] ([place] Comment on above: Performed By: #### G FR, LIPID, HFP, A1C, IBC, TSH, CBC, ANEU, FT4, FERR, ADIFF, CMP, FE, VIDH, FT3 #### [address] [address] #### FOL, B12 #### [address] [address] Eosinophils/100 WBC (Bld) 0.2 % Normal 0.0-7.0 [facility] ([place] Comment on above: Performed By: #### G FR, LIPID, HFP, A1C, IBC, TSH, CBC, ANEU, FT4, FERR, ADIFF, CMP, FE, VIDH, FT3 #### [address] [address] #### FOL, B12 #### [address] [address] Lymphocyte, Absolute 1.8 10 3/mcL Normal 0.8-3.9 [facility] ([place] Comment on above: Performed By: #### G FR, LIPID, HFP, A1C, IBC, TSH, CBC, ANEU, FT4, FERR, ADIFF, CMP, FE, VIDH, FT3 #### [address] [address] #### FOL, B12 #### [address] [address] Lymphocytes/100 WBC (Bld) 16.8 % Normal 10.0-50.0 [facility] ([place] Comment on above: Performed By: #### G FR, LIPID, HFP, A1C, IBC, TSH, CBC, ANEU, FT4, FERR, ADIFF, CMP, FE, VIDH, FT3 #### [address] [address] #### FOL, B12 #### [address] [address] Monocyte, Absolute 0.8 10 3/mcL Normal 0.2-1.0 [facility] ([place] Comment on above: Performed By: #### G FR, LIPID, HFP, A1C, IBC, TSH, CBC, ANEU, FT4, FERR, ADIFF, CMP, FE, VIDH, FT3 #### [address] [address] #### FOL, B12 #### [address] [address] Monocytes/100 WBC (Bld) 7.2 % Normal 1.7-13.0 [facility] ([place] Comment on above: Performed By: #### G FR, LIPID, HFP, A1C, IBC, TSH, CBC, ANEU, FT4, FERR, ADIFF, CMP, FE, VIDH, FT3 #### [address] [address] #### FOL, B12 #### [address] [address] Neutrophils/100 WBC (Bld) 75.7 % Normal 37.0-80.0 [facility] ([place] Comment on above: Performed By: #### G FR, LIPID, HFP, A1C, IBC, TSH, CBC, ANEU, FT4, FERR, ADIFF, CMP, FE, VIDH, FT3 #### [address] [address] #### FOL, B12 #### [address] [address] .NEUABSon 03-30-2023 Neutrophil, Absolute 8.2 10 3/mcL High 2.9-6.2 [facility] ([place] Comment on above: Performed By: #### G FR, LIPID, HFP, A1C, IBC, TSH, CBC, ANEU, FT4, FERR, ADIFF, CMP, FE, VIDH, FT3 #### [address] [address] #### FOL, B12 #### [address] [address] CBCon 03-30-2023 Erythrocyte distribution width (RBC) [Ratio] 13.8 % Normal 11.5-14.5 [facility] ([place] Comment on above: Performed By: #### G FR, LIPID, HFP, A1C, IBC, TSH, CBC, ANEU, FT4, FERR, ADIFF, CMP, FE, VIDH, FT3 #### [address] [address] #### FOL, B12 #### [address] [address] Hematocrit (Bld) [Volume fraction] 37.2 % Normal 37.0-47.0 [facility] ([place] Comment on above: Performed By: #### G FR, LIPID, HFP, A1C, IBC, TSH, CBC, ANEU, FT4, FERR, ADIFF, CMP, FE, VIDH, FT3 #### [address] [address] #### FOL, B12 #### [address] [address] Hgb 12.9 G/dL Normal 12.0-16.0 [facility] ([place] Comment on above: Performed By: #### G FR, LIPID, HFP, A1C, IBC, TSH, CBC, ANEU, FT4, FERR, ADIFF, CMP, FE, VIDH, FT3 #### [address] [address] #### FOL, B12 #### [address] [address] MCH (RBC) [Entitic mass] 32.2 pg High 27.0-31.2 [facility] ([place] Comment on above: Performed By: #### G FR, LIPID, HFP, A1C, IBC, TSH, CBC, ANEU, FT4, FERR, ADIFF, CMP, FE, VIDH, FT3 #### [address] [address] #### FOL, B12 #### [address] [address] MCHC 34.7 G/dL Normal 33.0-37.0 [facility] ([place] Comment on above: Performed By: #### G FR, LIPID, HFP, A1C, IBC, TSH, CBC, ANEU, FT4, FERR, ADIFF, CMP, FE, VIDH, FT3 #### [address] [address] #### FOL, B12 #### [place] [address] MCV (RBC) [Entitic vol] 92.8 fL Normal 80.0-94.0 [facility] ([place] Comment on above: Performed By: #### G FR, LIPID, HFP, A1C, IBC, TSH, CBC, ANEU, FT4, FERR, ADIFF, CMP, FE, VIDH, FT3 #### [place] [address] #### FOL, B12 #### [place] [address] Platelet 169 10 3/mcL Normal 130-400 [facility] ([place] Comment on above: Performed By: #### G FR, LIPID, HFP, A1C, IBC, TSH, CBC, ANEU, FT4, FERR, ADIFF, CMP, FE, VIDH, FT3 #### [place] [address] #### FOL, B12 #### [address] [address] Platelet mean volume (Bld) [Entitic vol] 9.7 fL Normal 7.4-10.4 [facility] ([place]) Comment on above: Performed By: #### G FR, LIPID, HFP, A1C, IBC, TSH, CBC, ANEU, FT4, FERR, ADIFF, CMP, FE, VIDH, FT3 #### [place] [address] #### FOL, B12 #### [address] [address] RBC 4.01 10 6/mcL Low 4.20-5.40 [facility] ([place]) Comment on above: Performed By: #### G FR, LIPID, HFP, A1C, IBC, TSH, CBC, ANEU, FT4, FERR, ADIFF, CMP, FE, VIDH, FT3 #### [address] [address] #### FOL, B12 #### [place] [address] WBC 10.8 10 3/mcL Normal 4.6-10.8 [facility] ([place]) Comment on above: Performed By: #### G FR, LIPID, HFP, A1C, IBC, TSH, CBC, ANEU, FT4, FERR, ADIFF, CMP, FE, VIDH, FT3 #### [address] [address] #### FOL, B12 #### [place] [address] Gel ABOon 03-30-2023 ABO/Rh Interp Positive Invalid Interpretation Code [facility] ([place]) Comment on above: Performed By: #### G FR, LIPID, HFP, A1C, IBC, TSH, CBC, ANEU, FT4, FERR, ADIFF, CMP, FE, VIDH, FT3 #### [address] [address] #### FOL, B12 #### [place] [address] Gel ABSon 03-30-2023 Antibody Screen Gel Negative Normal [facility] ([place]) Comment on above: Performed By: #### G FR, LIPID, HFP, A1C, IBC, TSH, CBC, ANEU, FT4, FERR, ADIFF, CMP, FE, VIDH, FT3 #### [address] [address] #### FOL, B12 #### [place] [address] LABORATORYOrdered By: Lilia Espinoza on 03-30-2023 ABO/Rh [...] Strep (PCR) Negative Normal Negative [facility] ([place]) Comment on above: Performed By: #### G BSPCR #### [address] [address] Group B Strep PCR Int Normal [facility] ([place]) Comment on above: Result Comment: Grou p [...] Below Performed By: #### G BSPCR #### [address] [address] RPRon 03-10-2023 Reagin Ab RPR Ql (S) Non-Reactive Normal Non-Reactive [facility] ([place]) Comment on above: Result Comment: The RPR [...] FERR, ADIFF, CMP, FE, VIDH, FT3 #### [address] [address] #### FOL, B12 #### [address] [address] .Auto Diffon 03-09-2023 Basophil, Absolute 0.0 10 3/mcL Normal 0.0-0.2 [facility] ([place]) Comment on above: Performed By: #### G FR, LIPID, HFP, A1C, IBC, TSH, CBC, ANEU, FT4, FERR, ADIFF, CMP, FE, VIDH, FT3 #### [address] [address] #### FOL, B12 #### [address] [address] Basophils/100 WBC (Bld) 0.2 % Normal 0.0-2.5 [facility] ([place]) Comment on above: Performed By: #### G FR, LIPID, HFP, A1C, IBC, TSH, CBC, ANEU, FT4, FERR, ADIFF, CMP, FE, VIDH, FT3 #### [address] [address] #### FOL, B12 #### [address] [address] Eosinophil, Absolute 0.0 10 3/mcL Normal 0.0-0.4 [facility] ([place]) Comment on above: Performed By: #### G FR, LIPID, HFP, A1C, IBC, TSH, CBC, ANEU, FT4, FERR, ADIFF, CMP, FE, VIDH, FT3 #### [address] [address] #### FOL, B12 #### [address] [address] Eosinophils/100 WBC (Bld) 0.3 % Normal 0.0-7.0 [facility] ([place]) Comment on above: Performed By: #### G FR, LIPID, HFP, A1C, IBC, TSH, CBC, ANEU, FT4, FERR, ADIFF, CMP, FE, VIDH, FT3 #### [address] [address] #### FOL, B12 #### [address] [address] Lymphocyte, Absolute 1.5 10 3/mcL Normal 0.8-3.9 [facility] ([place]) Comment on above: Performed By: #### G FR, LIPID, HFP, A1C, IBC, TSH, CBC, ANEU, FT4, FERR, ADIFF, CMP, FE, VIDH, FT3 #### [address] [address] #### FOL, B12 #### [address] [address] Lymphocytes/100 WBC (Bld) 15.8 % Normal 10.0-50.0 [facility] ([place]) Comment on above: Performed By: #### G FR, LIPID, HFP, A1C, IBC, TSH, CBC, ANEU, FT4, FERR, ADIFF, CMP, FE, VIDH, FT3 #### [address] [address] #### FOL, B12 #### [address] [address] Monocyte, Absolute 0.6 10 3/mcL Normal 0.2-1.0 [facility] ([place]) Comment on above: Performed By: #### G FR, LIPID, HFP, A1C, IBC, TSH, CBC, ANEU, FT4, FERR, ADIFF, CMP, FE, VIDH, FT3 #### [address] [address] #### FOL, B12 #### [address] [address] Monocytes/100 WBC (Bld) 6.6 % Normal 1.7-13.0 [facility] ([place] Comment on above: Performed By: #### G FR, LIPID, HFP, A1C, IBC, TSH, CBC, ANEU, FT4, FERR, ADIFF, CMP, FE, VIDH, FT3 #### [address] [address] #### FOL, B12 #### [address] [address] Neutrophils/100 WBC (Bld) 77.1 % Normal 37.0-80.0 [facility] ([place] Comment on above: Performed By: #### G FR, LIPID, HFP, A1C, IBC, TSH, CBC, ANEU, FT4, FERR, ADIFF, CMP, FE, VIDH, FT3 #### [address] [address] #### FOL, B12 #### [address] [address] .NEUABSon 03-09-2023 Neutrophil, Absolute 7.4 10 3/mcL High 2.9-6.2 [facility] ([place]) Comment on above: Performed By: #### G FR, LIPID, HFP, A1C, IBC, TSH, CBC, ANEU, FT4, FERR, ADIFF, CMP, FE, VIDH, FT3 #### [address] [address] #### FOL, B12 #### [address] [address] CBCon 03-09-2023 Erythrocyte distribution width (RBC) [Ratio] 13.9 % Normal 11.5-14.5 [facility] ([place] Comment on above: Performed By: #### G FR, LIPID, HFP, A1C, IBC, TSH, CBC, ANEU, FT4, FERR, ADIFF, CMP, FE, VIDH, FT3 #### [address] [address] #### FOL, B12 #### [address] [address] Hematocrit (Bld) [Volume fraction] 36.3 % Low 37.0-47.0 [facility] ([place] Comment on above: Performed By: #### G FR, LIPID, HFP, A1C, IBC, TSH, CBC, ANEU, FT4, FERR, ADIFF, CMP, FE, VIDH, FT3 #### [address] [address] #### FOL, B12 #### [address] [address] Hgb 12.6 G/dL Normal 12.0-16.0 [facility] ([place] Comment on above: Performed By: #### G FR, LIPID, HFP, A1C, IBC, TSH, CBC, ANEU, FT4, FERR, ADIFF, CMP, FE, VIDH, FT3 #### [address] [address] #### FOL, B12 #### [address] [address] MCH (RBC) [Entitic mass] 32.4 pg High 27.0-31.2 [facility] ([place] Comment on above: Performed By: #### G FR, LIPID, HFP, A1C, IBC, TSH, CBC, ANEU, FT4, FERR, ADIFF, CMP, FE, VIDH, FT3 #### [place] [address] #### FOL, B12 #### [place] [address] MCHC 34.7 G/dL Normal 33.0-37.0 [facility] ([place] Comment on above: Performed By: #### G FR, LIPID, HFP, A1C, IBC, TSH, CBC, ANEU, FT4, FERR, ADIFF, CMP, FE, VIDH, FT3 #### [place] [address] #### FOL, B12 #### [address] [address] MCV (RBC) [Entitic vol] 93.3 fL Normal 80.0-94.0 [facility] ([place] Comment on above: Performed By: #### G FR, LIPID, HFP, A1C, IBC, TSH, CBC, ANEU, FT4, FERR, ADIFF, CMP, FE, VIDH, FT3 #### [place] [address]27 #### FOL, B12 #### [address] [address] Platelet 171 10 3/mcL Normal 130-400 [facility] ([place]) Comment on above: Performed By: #### G FR, LIPID, HFP, A1C, IBC, TSH, CBC, ANEU, FT4, FERR, ADIFF, CMP, FE, VIDH, FT3 #### [place] [address] #### FOL, B12 #### [address] [address] Platelet mean volume (Bld) [Entitic vol] 8.5 fL Normal 7.4-10.4 [facility] ([place] Comment on above: Performed By: #### G FR, LIPID, HFP, A1C, IBC, TSH, CBC, ANEU, FT4, FERR, ADIFF, CMP, FE, VIDH, FT3 #### [place] [address] #### FOL, B12 #### [address] [address] RBC 3.89 10 6/mcL Low 4.20-5.40 [facility] ([place]) Comment on above: Performed By: #### G FR, LIPID, HFP, A1C, IBC, TSH, CBC, ANEU, FT4, FERR, ADIFF, CMP, FE, VIDH, FT3 #### [place] [address] #### FOL, B12 #### [place] [address] WBC 9.7 10 3/mcL Normal 4.6-10.8 [facility] ([place]) Comment on above: Performed By: #### G FR, LIPID, HFP, A1C, IBC, TSH, CBC, ANEU, FT4, FERR, ADIFF, CMP, FE, VIDH, FT3 #### [place] [address] #### FOL, B12 #### [address] [address] LABORATORYOrdered By: Isabella Eng on 03-09-2023 Group [...] SS AMNIon 03-06-2023 Amnisure Negative Normal Negative [facility] ([place]) Comment on above: Performed By: #### G FR, LIPID, HFP, A1C, IBC, TSH, CBC, ANEU, FT4, FERR, ADIFF, CMP, FE, VIDH, FT3 #### [address] [address] #### FOL, B12 #### [address] [address] LABORATORYOrdered By: Lilia Espinoza on 03-06-2023 [id number] .placental Ql (Vag fld) Negative (03/06/23 5:57 [...] SS CNCOon 11-12-2022 CNCO Letter Text Normal [facility] Bacteria Ur Culton 3 Bacteria identified Cx Nom (U) CULTURE, URINE: <10,000 CFU/ml Normal Urogenital Den Normal [facility] Comment on above: Performed By: #### 6 30-4 #### [facility] CLIA [id number] [address] ED NOTEon 10-29-2022 ED NOTE HNO ID: [id number] Author: Martinez Crouch RN Service: ? Author Type: Registered Nurse Type: ED Notes Filed: 10/28/2022 10:37 PM Note Text: Bed: 26-ED Expected date: Expected time: Means of arrival: Comments: triage Normal [facility] ED PROV NOTEon 10-29-2022 ED PROV NOTE HNO ID: [id number] Author: Danitza Reis DO Service: Emergency Medicine [...] BABS Medina CHRISTINA M 10/29/22 0323 Normal [facility] ED PROV NOTE HNO ID: [id number] Author: Danitza Reis DO Service: Emergency Medicine [...] was dehydrated. She follows with OB at [facility] in [place]. complicated by hyperemesis gravidarum and bleeding in [...] sign, Rovsing (more content not included)... Normal [facility] EKGon 10-29-2022 Electrocardiogram Ventricular Rate : 129 BPM Atrial Rate : 129 BPM P-R Interval : 130 ms QRS Duration : 70 ms Q-T Interval : 300 ms QTC Calculation(Bazett) : 439 ms Calculated P Latham : 31 degrees Calculated R Latham : 66 degrees Calculated T Latham : -[address] & T WAVE ABNORMALITY, CONSIDER INFERIOR ISCHEMIA ST & T WAVE ABNORMALITY, CONSIDER ANTEROLATERAL ISCHEMIA ABNORMAL ECG WHEN COMPARED WITH ECG OF 31-MAY-2022 13:06, VENT. RATE HAS INCREASED BY 58 BPM T WAVE INVERSION NOW EVIDENT IN INFERIOR LEADS INVERTED T WAVES HAVE REPLACED NONSPECIFIC T WAVE ABNORMALITY IN ANTEROLATERAL LEADS Confirmed by DO REIS CHRISTINA ([id number]) on 10/29/2022 1:44:37 AM NAME : LUZ OLIVEIRA PID : [id number] : 2000 Gender : Female Race : [...] ANTEROLATERAL LEADS Confirmed by DO REIS CHRISTINA ([id number]) on 10/29/2022 1:44:37 AM Test Reason : Location : 4 : [facility] ED26 Overread By : DO REIS CHRISTINA Edited By : DO REIS CHRISTINA Referred By : , Acquired by : KASHIF JOHNSON Normal [facility] Urinalysis complete panel (U )on 10-29-2022 Bacteria LM.HPF (Urine sed) [#/Area] Few Abnormal None Seen [facility] Comment on above: Order Comment: Speci men Type: URINE SPECIMENOrdering Facility: [facility] Address: [address] [place] [address] Performed By: #### 2 4356-8 ####[facility] LABORATORYCLIA [id number] [place] [address] [place] Bilirubin Ql (U) Negative Normal Negative [facility] Comment on above: Order Comment: Speci men Type: URINE SPECIMENOrdering Facility: [facility] Address: [address] [place] [address] Performed By: #### 2 4356-8 ####[facility] LABORATORYCLIA [id number] [address] [place] Clarity (Unsp spec) Turbid Abnormal Clear [facility] Comment on above: Order Comment: Speci men Type: URINE SPECIMENOrdering Facility: [facility] Address: [address] [place] [address] Performed By: #### 2 4356-8 ####[facility] LABORATORYCLIA [id number] [address] [place] Color (U) Yellow Normal yellow [facility] Comment on above: Order Comment: Speci men Type: URINE SPECIMENOrdering Facility: [facility] Address: [address] [place] [address] Performed By: #### 2 4356-8 ####[facility] LABORATORYCLIA [id number] [address] [place] Epithelial cells LM.HPF (Urine sed) [#/Area] Few Normal [facility] Comment on above: Order Comment: Speci men Type: URINE SPECIMENOrdering Facility: [facility] Address: [address] [place] [address] Performed By: #### 2 4356-8 ####[facility] LABORATORYCLIA [id number] [address] [place] Glucose Test strip (U) [Mass/Vol] Negative Normal Trace, Negative [facility] Comment on above: Order Comment: Speci men Type: URINE SPECIMENOrdering Facility: [facility] Address: [address] [place] [address] Performed By: #### 2 4356-8 ####[facility] LABORATORYCLIA [id number] [address] STATES [facility] Hemoglobin Ql (U) 1+ Abnormal Negative, Trace [facility] Comment on above: Order Comment: Speci men Type: URINE SPECIMENOrdering Facility: [facility] Address: [address] [place] [address] Performed By: #### 2 4356-8 ####[facility] LABORATORYCLIA [id number] [address] Ketones Ql (U) 4+ Abnormal Negative, Trace [facility] Comment on above: Order Comment: Speci men Type: URINE SPECIMENOrdering Facility: [facility] Address: [address] [place] [address] Performed By: #### 2 4356-8 ####[facility] LABORATORYCLIA [id number] [address] [place] Leukocyte esterase Test strip Ql (U) 25 Misti/mL Normal Negative, 25 Misti/mL [facility] Comment on above: Order Comment: Speci men Type: URINE SPECIMENOrdering Facility: [facility] Address: [address] [place] [address] Performed By: #### 2 4356-8 ####[facility] LABORATORYCLIA [id number] [address] [place] Nitrite Ql (U) Negative Normal Negative [facility] Comment on above: Order Comment: Speci men Type: URINE SPECIMENOrdering Facility: [facility] Address: [address] [place] [address] Performed By: #### 2 4356-8 ####[facility] LABORATORYCLIA [id number] [address] [place] pH (U) 6.0 [pH] Normal 5.0-8.0 [facility] Comment on above: Order Comment: Speci men Type: URINE SPECIMENOrdering Facility: [facility] Address: [address] [place] [address] Performed By: #### 2 4356-8 ####[facility] LABORATORYCLIA [id number] [address] Protein (U) [Mass/Vol] 1+ Abnormal Trace, Negative [facility] Comment on above: Order Comment: Speci men Type: URINE SPECIMENOrdering Facility: [facility] Address: [address] [place] [address] Performed By: #### 2 4356-8 ####[facility] LABORATORYCLIA [id number] [address] RBC LM.HPF (Urine sed) [#/Area] 6-10 /HPF Abnormal 0-3 /HPF [facility] Comment on above: Order Comment: Speci men Type: URINE SPECIMENOrdering Facility: [facility] Address: [address] [place] [address] Performed By: #### 2 4356-8 ####[facility] LABORATORYCLIA [id number] [address] STATES [facility] Specific gravity (U) [Rel density] 1.029 Normal 1.005-1.030 [facility] Comment on above: Order Comment: Speci men Type: URINE SPECIMENOrdering Facility: [facility] Address: [address] [place] [address] Performed By: #### 2 4356-8 ####[facility] LABORATORYCLIA [id number] [address] Urobilinogen Ql (U) Normal Normal Negative [facility] Comment on above: Order Comment: Speci men Type: URINE SPECIMENOrdering Facility: [facility] Address: [address] [place] [address] Performed By: #### 2 4356-8 ####[facility] LABORATORYCLIA [id number] [address] [place] WBC LM.HPF (Urine sed) [#/Area] 0-5 /HPF Normal 0-5 /HPF [facility] Comment on above: Order Comment: Speci men Type: URINE SPECIMENOrdering Facility: [facility] Address: [address] [place] [address] Performed By: #### 2 4356-8 ####[facility] LABORATORYCLIA [id number] [place] [address] [place] Basic metabolic 2000 panelon 10-28-2022 Anion gap [Moles/Vol] 15 mmol/L Normal 9-18 [facility] Comment on above: Order Comment: Speci men Type: BLOOD SPECIMENOrdering Facility: [facility] Address: [address] [place] [address] Performed By: #### 2 4321-2, ####[facility] LABORATORYCLIA [id number] [place] [address] [place] Calcium [Mass/Vol] 10.1 mg/dL Normal 8.5-10.2 [facility] Comment on above: Order Comment: Speci men Type: BLOOD SPECIMENOrdering Facility: [facility] Address: [address] [place] [address] Performed By: #### 2 432-2, ####[facility] LABORATORYCLIA [id number] [place] [address] [place] Chloride [Moles/Vol] 102 mmol/L Normal 97-105 [facility] Comment on above: Order Comment: Speci men Type: BLOOD SPECIMENOrdering Facility: [facility] Address: [address] [place] [address] Performed By: #### 2 4321-2, ####[facility] LABORATORYCLIA [id number] [place] [address] [place] CO2 [Moles/Vol] 22 mmol/L Normal 22-30 [facility] Comment on above: Order Comment: Speci men Type: BLOOD SPECIMENOrdering Facility: [facility] Address: [address] [place] [address] Performed By: #### 2 4321-2, ####[facility] LABORATORYCLIA [id number] [place] [address] [place] [facility] Creatinine [Mass/Vol] 0.61 mg/dL Normal 0.58-0.96 [facility] Comment on above: Order Comment: Eloise lopez Type: BLOOD SPECIMENOrdering Facility: [facility] Address: [address] [place] [address] Performed By: #### 2 43210-12, ####[facility] HUM[facility] SERVICESIA [id number] [place] [address] [facility] ESTIMATED GLOMERULAR FILTRATION RATE 129 mL/min/1.73m??? Normal >=60 [facility] Comment on above: Order Comment: Eloise lopez Type: BLOOD SPECIMENOrdering Facility: [facility] Address: [address] [place] [address] Result Comment: Tierra mated Glomerular Filtration Rate [...] reflect actual GFR. Performed By: #### 2 ####[facility] HUM[facility] SERVICESIA [id number] [place] [address] [place] [facility] Glucose [Mass/Vol] 86 mg/dL Normal 74-99 [facility] Comment on above: Order Comment: Eloise lopez Type: BLOOD SPECIMENOrdering Facility: [facility] Address: [address] [place] [address] Result Comment: The [employer] Diabetes Association (ADA) provides guidance for cutoff [...] Standards of Medical Care in Diabetes 2016, [employer] Diabetes Association. Diabetes Care. 2016.39(Suppl 1). Performed By: #### 2 4320-2, ####[facility] LABORATORYCLIA [id number] [place] [address] [place] Potassium [Moles/Vol] 3.2 mmol/L Low 3.7-5.1 [facility] Comment on above: Order Comment: [place] jessica Type: BLOOD SPECIMENOrdering Facility: [facility] Address: [address] [place] [address] Performed By: #### 2 4320-11, ####[facility] LABORATORYCLIA [id number] [address] STATES OF [facility] Sodium [Moles/Vol] 139 mmol/L Normal 136-144 [facility] Comment on above: Order Comment: Eloise lopez Type: BLOOD SPECIMENOrdering Facility: [facility] Address: [address] [place] [address] Performed By: #### 2 4320-11, ####[facility] LABORATORYCLIA [id number] [address] STATES [facility] Urea nitrogen [Mass/Vol] 5 mg/dL Low 7-21 [facility] Comment on above: Order Comment: [place] men Type: BLOOD SPECIMENOrdering Facility: [facility] Address: [address] [address] Performed By: #### 2 4320-11, ####[facility] LABORATORYCLIA [id number] [address] [place] CBC W Auto Differential pane l (Bld)on 10-28-2022 Basophils (Bld) [#/Vol] 10*3/uL Normal <0.11 [facility] Comment on above: Order Comment: [place] men Type: BLOOD SPECIMENOrdering Facility: [facility] Address: [address] [address] Performed By: #### 5 7021-8 ####[facility] LABORATORYCLIA [id number] [address] Basophils/100 WBC (Bld) 0.1 % Normal [facility] Comment on above: Order Comment: Speci men Type: BLOOD SPECIMENOrdering Facility: [facility] Address: [address] [place] [address] Performed By: #### 5 7021-8 ####[facility] LABORATORYCLIA [id number] [address] Differential cell count method Nom (Bld) Auto Normal [facility] Comment on above: Order Comment: Speci men Type: BLOOD SPECIMENOrdering Facility: [facility] Address: [address] [place] [address] Performed By: #### 5 7021-8 ####[facility] LABORATORYCLIA [id number] [address] [place] Eosinophils (Bld) [#/Vol] 10*3/uL Normal <0.46 [facility] Comment on above: Order Comment: Speci men Type: BLOOD SPECIMENOrdering Facility: [facility] Address: [address] [place] [address] Performed By: #### 5 7021-8 ####[facility] LABORATORYCLIA [id number] [address] Eosinophils/100 WBC (Bld) 0.1 % Normal [facility] Comment on above: Order Comment: Speci men Type: BLOOD SPECIMENOrdering Facility: [facility] Address: [address] [place] [address] Performed By: #### 5 7021-8 ####[facility] LABORATORYCLIA [id number] [address] Erythrocyte distribution width (RBC) [Ratio] 13.8 % Normal 11.5-15.0 [facility] Comment on above: Order Comment: Speci men Type: BLOOD SPECIMENOrdering Facility: [facility] Address: [address] [address] Performed By: #### 5 7021-8 ####[facility] LABORATORYCLIA [id number] [address] [facility] Hematocrit (Bld) [Volume fraction] 38.2 % Normal 36.0-46.0 [facility] Comment on above: Order Comment: Speci men Type: BLOOD SPECIMENOrdering Facility: [facility] Address: [address] [place] [address] Performed By: #### 5 7021-8 ####[facility] LABORATORYCLIA [id number] [address] [place] Hemoglobin (Bld) [Mass/Vol] 13.5 g/dL Normal 11.5-15.5 [facility] Comment on above: Order Comment: Speci men Type: BLOOD SPECIMENOrdering Facility: [facility] Address: [address] [place] [address] Performed By: #### 5 7021-8 ####[facility] LABORATORYCLIA [id number] [address] [place] Immature granulocytes (Bld) [#/Vol] 0.04 10*3/uL Normal <0.10 [facility] Comment on above: Order Comment: Speci men Type: BLOOD SPECIMENOrdering Facility: [facility] Address: [address] [place] [address] Performed By: #### 5 7021-8 ####[facility] LABORATORYCLIA [id number] [address] [place] Immature granulocytes/100 WBC (Bld) 0.5 % Normal [facility] Comment on above: Order Comment: Speci men Type: BLOOD SPECIMENOrdering Facility: [facility] Address: [address] [place] [address] Performed By: #### 5 7021-8 ####[facility] LABORATORYCLIA [id number] [address] [place] Lymphocytes (Bld) [#/Vol] 1.53 10*3/uL Normal 1.00-4.00 [facility] Comment on above: Order Comment: Speci men Type: BLOOD SPECIMENOrdering Facility: [facility] Address: [address] [place] [address] Performed By: #### 5 7021-8 ####[facility] LABORATORYCLIA [id number] [address] Lymphocytes/100 WBC (Bld) 18.8 % Normal [facility] Comment on above: Order Comment: Speci men Type: BLOOD SPECIMENOrdering Facility: [facility] Address: [address] [place] [address] Performed By: #### 5 7021-8 ####[facility] LABORATORYCLIA [id number] [address] STATES OF [facility] MCH (RBC) [Entitic mass] 31.6 pg Normal 26.0-34.0 [facility] Comment on above: Order Comment: Speci men Type: BLOOD SPECIMENOrdering Facility: [facility] Address: [address] [place] [address] Performed By: #### 5 7021-8 ####[facility] LABORATORYCLIA [id number] [address] STATES [facility] MCHC (RBC) [Mass/Vol] 35.3 g/dL Normal 30.5-36.0 [facility] Comment on above: Order Comment: Speci men Type: BLOOD SPECIMENOrdering Facility: [facility] Address: [address] [place] [address] Performed By: #### 5 7021-8 ####[facility] LABORATORYCLIA [id number] [address] [place] MCV (RBC) [Entitic vol] 89.5 fL Normal 80.0-100.0 [facility] Comment on above: Order Comment: Speci men Type: BLOOD SPECIMENOrdering Facility: [facility] Address: [address] [place] [address] Performed By: #### 5 7021-8 ####[facility] LABORATORYCLIA [id number] [address] [place] Monocytes (Bld) [#/Vol] 0.51 10*3/uL Normal <0.87 [facility] Comment on above: Order Comment: Speci men Type: BLOOD SPECIMENOrdering Facility: [facility] Address: [address] [address] Performed By: #### 5 7021-8 ####[facility] LABORATORYCLIA [id number] [address] Monocytes/100 WBC (Bld) 6.3 % Normal [facility] Comment on above: Order Comment: Speci men Type: BLOOD SPECIMENOrdering Facility: [facility] Address: [address] [place] [address] Performed By: #### 5 7021-8 ####[facility] LABORATORYCLIA [id number] [address] [place] Neutrophils (Bld) [#/Vol] 6.06 10*3/uL Normal 1.45-7.50 [facility] Comment on above: Order Comment: Speci men Type: BLOOD SPECIMENOrdering Facility: [facility] Address: [address] [place] [address] Performed By: #### 5 7021-8 ####[facility] LABORATORYCLIA [id number] [address] Neutrophils/100 WBC (Bld) 74.2 % Normal [facility] Comment on above: Order Comment: Speci men Type: BLOOD SPECIMENOrdering Facility: [facility] Address: [address] [place] [address] Performed By: #### 5 7021-8 ####[facility] LABORATORYCLIA [id number] [address] [place] Nucleated RBC (Bld) [#/Vol] 10*3/uL Normal <0.01 [facility] Comment on above: Order Comment: Speci men Type: BLOOD SPECIMENOrdering Facility: [facility] Address: [address] [place], [place] [id number] Performed By: #### 5 7021-8 ####[facility] LABORATORYCLIA [id number] [address] [place] Nucleated RBC/100 WBC (Bld) [Ratio] 0.0 /100 WBC Normal [facility] Comment on above: Order Comment: Speci men Type: BLOOD SPECIMENOrdering Facility: [facility] Address: [address] [place] [address] Performed By: #### 5 7021-8 ####[facility] LABORATORYCLIA [id number] [address] [place] Platelet mean volume (Bld) [Entitic vol] 10.2 fL Normal 9.0-12.7 [facility] Comment on above: Order Comment: Speci men Type: BLOOD SPECIMENOrdering Facility: [facility] Address: [address] [place] [address] Performed By: #### 5 7021-8 ####[facility] LABORATORYCLIA [id number] [address] [place] Platelets (Bld) [#/Vol] 191 10*3/uL Normal 150-400 [facility] Comment on above: Order Comment: Speci men Type: BLOOD SPECIMENOrdering Facility: [facility] Address: [address] [place] [address] Performed By: #### 5 7021-8 ####[facility] LABORATORYCLIA [id number] [place] [address] [place] RBC (Bld) [#/Vol] 4.27 10*6/uL Normal 3.90-5.20 [facility] Comment on above: Order Comment: Speci men Type: BLOOD SPECIMENOrdering Facility: [facility] Address: [address] [place] [address] Performed By: #### 5 7021-8 ####[facility] LABORATORYCLIA [id number] [address] [place] WBC (Bld) [#/Vol] 8.16 10*3/uL Normal 3.70-11.00 [facility] Comment on above: Order Comment: Speci men Type: BLOOD SPECIMENOrdering Facility: [facility] Address: [place] [address] Performed By: #### 5 7021-8 ####[facility] LABORATORYCLIA [id number] [place] [address] [place] ED Triage Noteon 10-28-2022 ED Triage Note HNO ID: [id number] Author: Dax Stevenson APRN.CNP Service: Emergency Medicine [...] CBC CMP EKG Urinalysis SIGNATURE: Dax Stevenson APRN.BARREL MARKER Normal [facility] Magnesium SerPl-mCncon 10-28 Magnesium [Mass/Vol] 1.8 mg/dL Normal 1.7-2.3 [facility] Comment on above: Order Comment: Speci men Type: BLOOD SPECIMENOrdering Facility: [facility] Address: [place] [facility] [place] [address] Performed By: #### 2 4321-2, 75864-6 ####[facility] LABORATORYCLIA [id number] [address] [place] URINE OB DIP B/Oon 3 Glucose Ql (U) Negative Neg mg/dL [facility] Protein.monoclonal (U) [Mass/Vol] TRACE Abnormal Neg mg/dL [facility] CNCOon 08-21-2022 CNCO Letter Text Normal [facility] Bacteria Ur Culton 2 Bacteria identified Cx Nom (U) ORGANISM ID: 1 50,000-<100,000 CFU/ml Normal urogenital den Normal [facility] Comment on above: Performed By: #### 7 3752-8, 87318-4, 13788-2 #### [facility] CLIA [id number] [facility] [address] [place] C. trachomatis+N. gonorrhoea e DNA CHICHO+probe Ql (Unsp spec)on 08-19-2022 C. trachomatis DNA CHICHO+probe Ql (Unsp spec) Negative Normal Negative for Chlamydia trachomatis by amplificaton [facility] Comment on above: Order Comment: Speci men Type: SWAB Ordering Facility: [facility] Address: [address] [place] [address] Performed By: #### 3 6902-5 #### [facility] CLIA [id number] [address] [place] [address] [place] N. gonorrhoeae DNA CHICHO+probe Ql (Unsp spec) Negative Normal Negative for Neisseria gonorrhoeae by amplification [facility] Comment on above: Order Comment: Speci men Type: SWAB Ordering Facility: [facility] Address: [address] [place] [address] Performed By: #### 3 6902-5 #### [facility] CLIA [id number] [address] [place] [address] [place] CBC panel Auto (Bld)on 08-19 Erythrocyte distribution width (RBC) [Ratio] 12.4 % Normal 11.5-15.0 [facility] Comment on above: Order Comment: Speci men Type: BLOOD SPECIMEN Ordering Facility: [facility] Address: [address] [place] [address] Performed By: #### 7 3752-8, 74645-8, 13228-5 #### [facility] CLIA [id number] [address] [place] [address] [place] Hematocrit (Bld) [Volume fraction] 40.5 % Normal 36.0-46.0 [facility] Comment on above: Order Comment: Speci men Type: BLOOD SPECIMEN Ordering Facility: [facility] Address: [address] Performed By: #### 7 3752-8, 75858-0, 83483-7 #### [facility] CLIA [id number] [address] [place] [address] [place] Hemoglobin (Bld) [Mass/Vol] 13.6 g/dL Normal 11.5-15.5 [facility] Comment on above: Order Comment: Speci men Type: BLOOD SPECIMEN Ordering Facility: [facility] Address: [address] Performed By: #### 7 3752-8, 09929-3, 34961-4 #### [facility] CLIA [id number] [address] [place] [address] [place] MCH (RBC) [Entitic mass] 30.8 pg Normal 26.0-34.0 [facility] Comment on above: Order Comment: Speci men Type: BLOOD SPECIMEN Ordering Facility: [facility] Address: [address] [place] [address] Performed By: #### 7 3752-8, 59188-4, 94389-5 #### [facility] CLIA [id number] [address] [place] [address] [place] MCHC (RBC) [Mass/Vol] 33.6 g/dL Normal 30.5-36.0 [facility] Comment on above: Order Comment: Speci men Type: BLOOD SPECIMEN Ordering Facility: [facility] Address: [address] Performed By: #### 7 3752-8, 51914-4, 15032-6 #### [facility] CLIA [id number] [address] [place] [address] [place] MCV (RBC) [Entitic vol] 91.8 fL Normal 80.0-100.0 [facility] Comment on above: Order Comment: Speci men Type: BLOOD SPECIMEN Ordering Facility: [facility] Address: [address] Performed By: #### 7 3752-8, 98987-7, 16141-7 #### [facility] CLIA [id number] [address] [place] [address] [place] Nucleated RBC (Bld) [#/Vol] 10*3/uL Normal <0.01 [facility] Comment on above: Order Comment: Speci men Type: BLOOD SPECIMEN Ordering Facility: [facility] Address: [address] Performed By: #### 7 3752-8, 30091-5, 03165-8 #### [facility] CLIA [id number] [address] [place] [address] [place] Platelet mean volume (Bld) [Entitic vol] 10.5 fL Normal 9.0-12.7 [facility] Comment on above: Order Comment: Speci men Type: BLOOD SPECIMEN Ordering Facility: [facility] Address: [address] Performed By: #### 7 3752-8, 30092-0, 20290-1 #### [facility] CLIA [id number] [address] [place] [address] [place] Platelets (Bld) [#/Vol] 247 10*3/uL Normal 150-400 [facility] Comment on above: Order Comment: Speci men Type: BLOOD SPECIMEN Ordering Facility: [facility] Address: [address] Performed By: #### 7 3752-8, 19904-0, 03382-2 #### [facility] CLIA [id number] [address] [place] [id number] [place] RBC (Bld) [#/Vol] 4.41 10*6/uL Normal 3.90-5.20 [facility] Comment on above: Order Comment: Speci men Type: BLOOD SPECIMEN Ordering Facility: [facility] Address: [place] [address] Performed By: #### 7 3752-8, 20334-2, 61039-6 #### [facility] CLIA [id number] [address] [place] [address] [facility] WBC (Bld) [#/Vol] 7.20 10*3/uL Normal 3.70-11.00 [facility] Comment on above: Order Comment: Speci men Type: BLOOD SPECIMEN Ordering Facility: [facility] Address: [place] [address] Performed By: #### 7 3752-8, 34833-8, 66522-5 #### [facility] CLIA [id number] [address] [place] [address] [facility] Erythrocyte distribution width (RBC) [Ratio] 12.4 % 11.5 - 15.0 % [facility] Hematocrit (Bld) [Volume fraction] 40.5 % 36.0 - 46.0 % [facility] Hemoglobin (Bld) [Mass/Vol] 13.6 g/dL 11.5 - 15.5 g/dL [facility] MCH (RBC) [Entitic mass] 30.8 pg 26.0 - 34.0 pg [facility] MCHC (RBC) [Mass/Vol] 33.6 g/dL 30.5 - 36.0 g/dL [facility] MCV (RBC) [Entitic vol] 91.8 fL 80.0 - 100.0 fL [facility] Nucleated RBC (Bld) [#/Vol] <0.01 k/uL [facility] Platelet mean volume (Bld) [Entitic vol] 10.5 fL 9.0 - 12.7 fL [facility] Platelets (Bld) [#/Vol] 247 10*3/uL 150 - 400 k/uL [facility] RBC (Bld) [#/Vol] 4.41 10*6/uL 3.90 - 5.2 0 m/uL [facility] WBC (Bld) [#/Vol] 7.20 10*3/uL 3.70 - 11. 00 k/uL [facility] HBV surface Ab IA Ql (S)on 1 10-19-2021 HBV surface Ag Ql (S) Negative Normal Negative [facility] Comment on above: Order Comment: Speci men Type: BLOOD SPECIMEN Ordering Facility: [facility] Address: [address] [place] [address] Performed By: #### 7 3752-8, 20920-3, 26153-8 #### [facility] CLIA [id number] [address] [place] [address] [place] HCV Ab Ser Qlon 08-19-2022 HCV Ab Ql (S) Negative Normal Negative [facility] Comment on above: Order Comment: Speci men Type: BLOOD SPECIMEN Ordering Facility: [facility] Address: [address] [place] [address] Result Comment: The result suggests no evidence of active infection with Hepatitis C virus. Should recent infection be suspected, repeat testing may be considered 4-6 weeks after this draw. Performed By: #### 7 3752-8, 98373-2, 76888-7 #### [facility] CLIA [id number] [address] [place] [address] [facility] [place] HIV 1+2 Ab IA Qlon 2 HIV 1 and 2 Ab IA.rapid Nom Normal [facility] Comment on above: Order Comment: Speci men Type: BLOOD SPECIMEN Ordering Facility: [facility] Address: [address] [place] [address] Result Comment: Test not indicated. Performed By: #### 7 3752-8, 33423-3, 06380-2 #### [facility] CLIA [id number] [address] [place] [address] [place] HIV 1+2 Ab+HIV1 p24 Ag IA Ql Non-Reactive Normal Nonreactive [facility] Comment on above: Order Comment: Speci men Type: BLOOD SPECIMEN Ordering Facility: [facility] Address: [address] [place] [address] Performed By: #### 7 3752-8, 25401-6, 96331-6 #### [facility] CLIA [id number] [address] [place] [address] [place] HIVINT Normal [facility] Comment on above: Order Comment: Speci men Type: BLOOD SPECIMEN Ordering Facility: [facility] Address: [address] [place] [address] Result Comment: No e vidence of HIV-1 or HIV-2 infection. Should recent infection be suspected, repeat testing may be considered 2-3 weeks after this draw. [place] Rev. Code 3701.243(E): This information has been [...] or diagnoses. Performed By: #### 7 3752-8, 67819-0, 94729-0 #### [facility] CLIA [id number] [address] [place] [address] [place] No Panel Informationon 08-19 [facility] PAP FLUID CERVICAL SCREENING on 08-19-2022 CASE REPORT Normal [facility] Comment on above: Order Comment: Speci men Type: FLUID SPECIMEN Ordering Facility: [facility] Address: [address] [place] [address] Result Comment: Gyne cologic Cytology Report Case: [id number] Authorizing Provider: Braulio Hollingsworth MD Collected: 08/19/2022 02:46 PM Ordering Location: Obstetrics/Gynecology Received: 08/20/2022 12:38 PM First Screen: Shelby Umaña, CT, ASCP Rescreen: Wandy Fraser, CT, ASCP Specimen: Pap, Asset Protection Agent, Screening, CERVICAL SCREENING FLUID Performed By: #### L [id number] #### [facility] CLIA [id number] [address] [place] [address] [place] CLINICAL HISTORY ABNORMAL PAP[LGSIL i n 2020 in [place] Normal [facility] Comment on above: Order Comment: Speci men Type: FLUID SPECIMEN Ordering Facility: [facility] Address: [address] [place], [place] [address] Performed By: #### L [id number] #### [facility] CLIA [id number] [address] [place] [address] [place] CYTOLOGY INTERPRETATION PAP Normal [facility] Comment on above: Order Comment: Speci men Type: FLUID SPECIMEN Ordering Facility: [facility] Address: [address] [place] [address] Result Comment: Nega tive for Intraepithelial lesion or malignancy. Performed By: #### L [id number] #### [facility] CLIA [id number] [address] [place] [address] [facility] FINAL DIAGNOSIS Normal [facility] Comment on above: Order Comment: Speci men Type: FLUID SPECIMEN Ordering Facility: [facility] Address: [address] [place], [place] [address] Result Comment: A - CERVICAL SCREENING FLUID Satisfactory for interpretation, Excess blood Negative for Intraepithelial lesion or malignancy. Performed By: #### L [id number] #### [facility] CLIA [id number] [address] [place] [address] [place] FINAL PERFORMING LAB Normal [facility] Comment on above: Order Comment: Speci men Type: FLUID SPECIMEN Ordering Facility: [facility] Address: [address] [place], [place] [address] Result Comment: Tech nical component, store facility technician screening performed at [facility], [facility] [place] [id number] CLIA# [id number] Diagnostic interpretation performed at [facility], [address] [place] [address] CLIA# [id number] Medical Nurse: Adam Farah M.D. Performed By: #### L [id number] #### [facility] CLIA [id number] [address] [place] [address] [place] GROSS DESCRIPTION Normal [facility] Comment on above: Order Comment: Speci men Type: FLUID SPECIMEN Ordering Facility: [facility] Address: [address] [place] [address] Result Comment: A. C ERVICAL SCREENING FLUID Glacial Acetic Acid added. Performed By: #### L [id number] #### [facility] CLIA [id number] [address] [place] [address] [place] HPV REQUESTED? Yes, Reflex HPV for ASCUS Normal [facility] Comment on above: Order Comment: Speci men Type: FLUID SPECIMEN Ordering Facility: [facility] Address: [address] [place] [address] Performed By: #### L [id number] #### [facility] CLIA [id number] [address] [place] [address] [place] LMP 06/21/2022() Normal [facility] Comment on above: Order Comment: Speci men Type: FLUID SPECIMEN Ordering Facility: [facility] Address: [address] [place] [address] Performed By: #### L [id number] #### [facility] CLIA [id number] [address] [place] [address] [place] PAP DISCLAIMER COMMENT The Pap Smear is a screening test for cervical cancer. False negative results occur with all screening tests, emphasizing the need for rescreening at recommended intervals, and clinical correlation. Normal [facility] Comment on above: Order Comment: Speci men Type: FLUID SPECIMEN Ordering Facility: [facility] Address: [address] [place] [address] Performed By: #### L [id number] #### [facility] CLIA [id number] [address] [place] [address] [place] PAP FOREST RESOURCES PROFESSOR COMMENT This specimen has been analyzed by the ThinPrep Imaging System, an automated imaging and review system, which assists the laboratory in evaluating cells on ThinPrep Pap tests. Following automated imaging, selected francis from every slide are reviewed by a store facility technician. Normal [facility] Comment on above: Order Comment: Speci men Type: FLUID SPECIMEN Ordering Facility: [facility] Address: [address] [place] [address] Performed By: #### L [id number] #### [facility] CLIA [id number] [address] [place] [address] [place] RUBELLA IGG ABon 08-19-2022 RUBELLA IGG AB, QUAL Positive Normal Positive [facility] Comment on above: Order Comment: Eloise lopez Type: BLOOD SPECIMEN Ordering Facility: [facility] Address: [address] [place] [address] Result Comment: The result suggests recent or past exposure to Rubella virus or history of Rubella vaccination. Positive result may also be seen due to presence of passively-transferred antibodies. Please correlate with patient's history. Performed By: #### 7 3752-8, 44531-7, 84396-8 #### [facility] CLIA [id number] [address] [place] Reagin and Treponema pallidu m IgG and IgM [Interp]on 08-19-2022 SYPHILIS INTERPRETATION Cannot exclude recent Treponemal infection if specimen collected within 7-10 days after appearance of suspect lesions or 2-3 weeks after an exposure. Clinical correlation is required. Normal [facility] Comment on above: Order Comment: Speci men Type: BLOOD SPECIMEN Ordering Facility: [facility] Address: [address] [place], [place] [address] Performed By: #### 7 3752-8, 69391-9, 88815-5 #### [facility] CLIA [id number] [address] [place] [address] [place] T. pallidum IgG+IgM IA Ql (S) Non-Reactive Normal Nonreactive [facility] Comment on above: Order Comment: Speci men Type: BLOOD SPECIMEN Ordering Facility: [facility] Address: [address] [place] [address] Performed By: #### 7 3752-8, 51737-7, 40887-0 #### [facility] CLIA [id number] [address] [place] [address] [place] TSH BLDon 08-19-2022 TSH Qn 1.190 m[IU]/L 0.270 - 4.200 mIU/L [facility] TSH SerPl-aCncon 08-19-2022 TSH Qn 1.190 m[IU]/L Normal 0.270-4.200 [facility] Comment on above: Order Comment: Speci men Type: BLOOD SPECIMEN Ordering Facility: [facility] Address: [address] [place] [address] Result Comment: If t he patient is , TSH reference range varies by gestational period: First Trimester (weeks 9-12): 0.180-2.990 mIU/L Second Trimester: 0.110-3.980 mIU/L Third Trimester: 0.480-4.710 mIU/L Rafiq Winston et al. A Practical Approach for the Verifications and Determination of Site- and Trimester-Specific Reference Intervals for Thyroid Function tests in . Thyroid, 2019:29:3:412-420. William Bautista, et al. 2017 Guidelines of the [place] Thyroid Association for the Diagnosis and Management of Thyroid Disease during and the . Thyroid, 2017:27:3:315-389. Performed By: #### 3 016-3 #### [facility] CLIA [id number] [address] [place] [address] [place] TYPE + SCREEN PRENATALon ABO O [facility] HIstorical Ab Scr Status Negative [facility] Rh Nom (Bld) Positive [facility] Type and Screen Expiration 08/22/2022 23:59 [facility] ABO O Normal [facility] Comment on above: Order Comment: Speci men Type: BLOOD SPECIMEN Ordering Facility: [facility] Address: [address] [place] [address] Performed By: #### T SPN #### [facility] CLIA [id number] [address] HISTORICAL AB SCR STATUS Negative Normal [facility] Comment on above: Order Comment: Speci men Type: BLOOD SPECIMEN Ordering Facility: [facility] Address: [address] [place] [address] Performed By: #### T SPN #### [facility] CLIA [id number] [address] Rh Nom (Bld) Positive Normal [facility] Comment on above: Order Comment: Speci men Type: BLOOD SPECIMEN Ordering Facility: [facility] Address: [address] [place] [address] Performed By: #### T SPN #### [facility] CLIA [id number] [address] TYPE AND SCREEN EXPIRATION 08/22/2022 23:59 Normal [facility] Comment on above: Order Comment: Speci men Type: BLOOD SPECIMEN Ordering Facility: [facility] Address: [address] [place] [address] Performed By: #### T SPN #### [facility] CLIA [id number] [address] [place] [address] [place] URINE OB DIP B/Oon 2 Glucose Ql (U) Negative Neg mg/dL [facility] Protein.monoclonal (U) [Mass/Vol] Negative Neg mg/dL [facility] CONFIRM BLOOD TYPEon 022 ABO O Normal [facility] Comment on above: Order Comment: Speci men Type: BLOOD SPECIMEN Ordering Facility: [facility] Address: [address] [place] [address] Performed By: #### C ONABO #### [facility] CLIA [id number] [address] [place] Rh Nom (Bld) Positive Normal [facility] Comment on above: Order Comment: Speci men Type: BLOOD SPECIMEN Ordering Facility: [facility] Address: [place] [address] Performed By: #### C ONABO #### [facility] [place] [id number] [address] ED Triage Noteon 08-14-2022 ED Triage Note HNO ID: [id number] Author: Kaushik Justice APRN.CNP Service: Emergency Medicine [...] a week. She was previously seen at [place] [facility] where she states she had an [...] positive send OB triage SIGNATURE: Kaushik Justice APRN.BARREL MARKER Normal [facility] TYPE + SCREEN PRENATALon ABO O Normal [facility] Comment on above: Order Comment: Speci men Type: BLOOD SPECIMEN Ordering Facility: [facility] Address: [place] [address] Performed By: #### T SPN #### [facility] [id number] [address] HISTORICAL AB SCR STATUS Negative Normal [facility] Comment on above: Order Comment: Speci men Type: BLOOD SPECIMEN Ordering Facility: [facility] Address: [place] [address] Performed By: #### T SPN #### [facility] CLIA [id number] [address] Rh Nom (Bld) Positive Normal [facility] Comment on above: Order Comment: Speci men Type: BLOOD SPECIMEN [facility] [facility] Address: [address] [place] [address] Performed By: #### T SPN #### [facility] CLIA [id number] [address] TYPE AND SCREEN EXPIRATION 08/17/2022 23:59 Normal [facility] Comment on above: Order Comment: Speci men Type: BLOOD SPECIMEN Ordering Facility: [facility] Address: [address] [place] [address] Performed By: #### T SPN #### [facility] CLIA [id number] [address] 08-10-2022 [facility] Telephone (OBGMEM) LUZ OLIVEIRA ([id number]) 2000 F Date Time Provider Department 08/10/22 [...] Status:Closed by NISA MURPHY on 11/11/22 Normal [facility] Absolute lymphocyte counton 08-09-2022 Lymphocytes Auto (Unsp spec) [#/Vol] 1.23 10*3/uL 0.83-4.51 [facility] Work Phone: Basophil percentageon 2021 Basophils/100 WBC (Bld) 0.2 % 0-1 [facility] Work Phone: Bilirubin [Mass/Vol] 0.50 mg/dL 0.20-1.00 [facility] Work Phone: Comment on above: For patients on eltr ombopag therapy, use of Dimension [place] TBIL is not recommended. Chloride [Moles/Vol] 107 mmol/L 98-107 [facility] Work Phone: Eosinophils/100 WBC (Bld) 0.3 % 0-5 [facility] Work Phone: Glucose [Mass/Vol] 122 mg/dL 74-106 [facility] Work Phone: Comment on above: Fasting Glucose resu lt from 100 to 125 mg/dL suggests IMPAIRED HOMEOSTASIS per A.D.A. criteria. Neutrophils (Bld) [#/Vol] 4.2 10*3/uL 2.0-7.7 [facility] Work Phone: Neutrophils/100 WBC (Bld) 71.9 % 47-70 [facility] Work Phone: Potassium [Moles/Vol] 3.5 mmol/L 3.5-5.1 [facility] Work Phone: Protein [Mass/Vol] 7.3 g/dL 6.4-8.2 [facility] Work Phone: Sodium [Moles/Vol] 139 mmol/L 136-145 [facility] Work Phone: WBC (Bld) [#/Vol] 5.9 10*3/uL 4.4-11.0 [facility] Work Phone: Basophil percentage 0 SEEN /hpf 0-5 [facility] Work Phone: Beta hCG serum qualon 2021 Beta HCG ( test) Ql Negative [facility] Work Phone: Comment on above: TEST is *P OSITIVE* Bilirubin Test strip Ql (U)o n 08-09-2022 Bilirubin Ql (U) Negative Negative [facility] Work Phone: Blood erythrocytes count (nu mber/volume)on 08-09-2022 RBC (Bld) [#/Vol] 4.26 10*6/uL 4.2-5.4 [facility] Work Phone: Blood hemoglobin measurement (mass/volume)on 08-09-2022 Hemoglobin (Bld) [Mass/Vol] 13.4 g/dL 12.0-15.0 [facility] Work Phone: [phone] Blood lymphocytes/100 leukoc yteson 08-09-2022 Lymphocytes/100 WBC (Bld) 21.0 % 19-41 [facility] Work Phone: [phone] Blood monocytes/100 leukocyt eson 08-09-2022 Monocytes/100 WBC (Bld) 6.3 % 0-10 [facility] Work Phone: [phone] Blood platelet mean volumeon 08-09-2022 Platelet mean volume (Bld) [Entitic vol] 10.1 fL 6.2-12.0 [facility] Work Phone: [phone] Determination of erythrocyte mean corpuscular volume (MCV)on 08-09-2022 MCV (RBC) [Entitic vol] 91.8 fL 81-99 [facility] Work Phone: Hematocrit Auto (Bld) [Volum e fraction]on 08-09-2022 Hematocrit (Bld) [Volume fraction] 39.1 % 37-47 [facility] Work Phone: [phone] Ketones Test strip Ql (U)on 08-09-2022 Ketones Ql (U) Negative Negative [facility] Work Phone: [phone] Laboratory - Chemistry and C hemistry - challengeon 08-09-2022 ALP [Catalytic activity/Vol] 56 U/L 45-117 [facility] Work Phone: ALT [Catalytic activity/Vol] 67 U/L 13-56 [facility] Work Phone: [phone] CO2 [Moles/Vol] 25.0 mmol/L 21.0-32.0 [facility] Work Phone: Globulin (S) [Mass/Vol] 3.5 g/dL 2.2-4.2 [facility] Work Phone: [phone] Urea nitrogen/Creatinine [Mass ratio] 9.7 mg/mg 10-20 [facility] Work Phone: [phone] Laboratory - Hematology and Cell countson 08-09-2022 Erythrocyte distribution width (RBC) [Entitic vol] 42.5 fL 35.1-43.9 [facility] Work Phone: [phone] Erythrocyte distribution width (RBC) [Ratio] 12.8 % 11.6-14.6 [facility] Work Phone: [phone] Immature granulocytes/100 WBC (Bld) 0.300 % 0.0-0.9 [facility] Work Phone: [phone] Comment on above: IG% - Immature Granu locytes (promyelocytes, myelocytes and metamyelocytes) > 1% indicates that a LEFT SHIFT is Present. MCH (RBC) [Entitic mass] 31.5 pg 27.0-32.0 [facility] Work Phone: [phone] Nucleated RBC/100 WBC (Bld) [Ratio] 0 % 0-5 [facility] Work Phone: [phone] MCHC Auto (RBC) [Mass/Vol]on 08-09-2022 MCHC (RBC) [Mass/Vol] 34.3 g/dL 32-36 [facility] Work Phone: [phone] Mucus LM Ql (Urine sed)on Mucus Ql (Urine sed) 0 SEEN /hpf [facility] Work Phone: [phone] Nitrite Test strip Ql (U)on 08-09-2022 Nitrite Ql (U) Negative Negative [facility] Work Phone: [phone] Panel Informationon 08-09 Estimated Creatinine Clearance Calc 81.20 ml/min [facility] Work Phone: [phone] Estimated GFR (MDRD) Amer 111 mL/min >60 [facility] Work Phone: [phone] Comment on above: GFR Calc Estimated GFR (MDRD) Non-Af Amer 91 mL/min >60 [facility] Work Phone: Comment on above: Non- GFR Calc Platelets bldon 08-09-2022 Platelets (Bld) [#/Vol] 224 10*3/uL 150-450 [facility] Work Phone: Protein Test strip Ql (U)on 08-09-2022 Protein Ql (U) Negative Negative [facility] Work Phone: Serum or plasma albumin sabino urement (mass/volume)on 08-09-2022 Albumin [Mass/Vol] 3.8 g/dL 3.2-5.0 [facility] Work Phone: Serum or plasma albumin/glob ulin mass ratioon 08-09-2022 Albumin/Globulin [Mass ratio] 1.1 {ratio} 0.9-2.4 [facility] Work Phone: Serum or plasma calcium sabino urement (mass/volume)on 08-09-2022 Calcium [Mass/Vol] 9.2 mg/dL 8.5-10.1 [facility] Work Phone: Serum or plasma choriogonado tropin detectionon 08-09-2022 [place] ( [place] [address] mIU/mL <4 [facility] Work Phone: Comment on above: hCG levels with Gest ational AgeGestational Age hCG mIU/mL (IU/L)0.2 - 1 week 5 - 501-2 weeks 50 - 5002-3 weeks 100 - 56070-1 weeks 500 - 555067-0 weeks 1000 - 810963-2 weeks 68133 - 100,0006-8 weeks 53473 - 200,0002-3 months 29146 - 100,000 Serum or plasma creatinine m easurement (mass/volume)on 08-09-2022 Creatinine [Mass/Vol] 0.82 mg/dL 0.55-1.02 [facility] Work Phone: Comment on above: The validity of the calculated GFR & GFRAA in patients over 70 years has not been determined. Clinical correlation is essential. Serum or plasma urea nitroge n measurement (mass/volume)on 08-09-2022 Urea nitrogen [Mass/Vol] 8 mg/dL 7-18 [facility] Work Phone: Squamous epithelial cells de tection in urine sediment by light microscopyon 08-09-2022 Epithelial cells.squamous LM Ql (Urine sed) 0-5 SEEN /hpf 5-10 [facility] Work Phone: Thin prep Papanicolaou smear with manual screeningon 08-09-2022 Thin prep Papanicolaou smear with manual screening 38 U/L 15-37 [facility] Work Phone: [phone] Thin prep Papanicolaou smear with manual screening 7 5-15 [facility] Work Phone: Urine blood detectionon 07-13 RBC Ql (U) 25 /ul Negative [facility] Work Phone: RBC Ql (U) 0 SEEN /hpf 0-5 [facility] Work Phone: Urine clarityon 08-09-2022 Clarity (U) Clear Clear [facility] Work Phone: Urine color determinationon 08-09-2022 Color (U) Yellow Yellow [facility] Work Phone: Urine glucose detectionon Glucose Ql (U) Normal mg/dl Normal [facility] Work Phone: Urine leukocyte esterase det ection by dipstickon 08-09-2022 Leukocyte esterase Test strip Ql (U) 25 /ul Negative [facility] Work Phone: Urine pHon 08-09-2022 pH (U) 7.0 [pH] 5.0 - 8.0 [facility] Work Phone: Urine sediment bacteria coun t by microscopy (number/high power field)on 08-09-2022 Bacteria LM.HPF (Urine sed) [#/Area] 0 /[HPF] None Seen [facility] Work Phone: Urine specific gravity measu rementon 08-09-2022 Specific gravity (U) [Rel density] 1.010 1.002-1.030 [facility] Work Phone: Urobilinogen Auto test strip Ql (U)on 08-09-2022 Urobilinogen Ql (U) Normal mg/dl Normal [facility] Work Phone: CBCon 08-04-2022 Hematocrit (Bld) [...] 9.9 fL 7.4 - 12.[address] [facility] Comment on above: MPV is a calculated measurement using platelet volume ratio. Platelets (Bld) [#/Vol] 217 10*3/uL 140 - 440 10*3/uL [facility] RBC (Bld) [#/Vol] 4.27 10*6/uL 3.80 - 5.2 0 10*6/uL [facility] WBC (Bld) [#/Vol] 5.4 10*3/uL 3.6 - 10.7 10*3/uL [facility] Test Performed by [facility], [address] [place] [address]. [address] [facility] HCG, QUANTITATIVE, on 08-04-2022 hCG Quant 3840 m[IU]/mL [facility] Comment on above: Females < 5 [...] disease. Test Performed by [facility], [address] [place] [address] [facility] Hemogram 08-04-2022 Erythrocyte distribution width (RBC) [Ratio] 12.8 % Normal 11.5-14.5 [facility] Comment on above: Performed By: #### H IZAG QWNT5 #### [address] [place] [address] Hematocrit (Bld) [Volume fraction] 39.2 % Normal 35.0-47.0 [facility] Comment on above: Performed By: #### H LIONEL QWNT5 #### [address] [place] [address] Hemoglobin (Bld) [Mass/Vol] 13.4 g/dL Normal 11.7-16.0 [facility] Comment on above: Performed By: #### H EMOG QWNT5 #### [address] [place] [address] MCH (RBC) [Entitic mass] 31.4 pg Normal 26.0-34.0 [facility] Comment on above: Performed By: #### H EMOG, QWNT5 #### [address] [place] [address] MCHC 34.2 % Normal 32.0-36.0 [facility] Comment on above: Performed By: #### H EMOG, QWNT5 #### [address] [place] [address] MCV (RBC) [Entitic vol] 91.8 fL Normal 79.0-98.0 [facility] Comment on above: Performed By: #### H EMOSamuel, QWNT5 #### [facility] [address] [place] [address] Platelet mean volume (Bld) [Entitic vol] 9.9 fL Normal 7.4-12.4 [facility] Comment on above: Result Comment: MPV is a calculated measurement using platelet volume ratio. Performed By: #### H EMOG, QWNT5 #### [facility] [address] [place] [address] Platelets (Bld) [#/Vol] 217 10*3/uL Normal 140-440 [facility] Comment on above: Performed By: #### H EMOG, QWNT5 #### [facility] [address] [place] [address] RBC (Bld) [#/Vol] 4.27 10*6/uL Normal 3.80-5.20 [facility] Comment on above: Performed By: #### H EMOG, QWNT5 #### [facility] [address] [place] [address] WBC (Bld) [#/Vol] 5.4 10*3/uL Normal 3.6-10.7 [facility] Comment on above: Performed By: #### H EMOG, QWNT5 #### [facility] [address] [place] [address] GELon 08-04-2022 GEL ABO Group: O Rh, Gel: POS Antibody Screen Gel: NEG Normal [facility] Comment on above: Performed By: #### P NGL #### [facility] TYPE AND SCREENon [address] [facility] Work Phone: Rh Type Positive [facility] Work Phone: Test Performed by [facility], [address] , [place], [place] [id number] [place] [address] [facility] Work Phone: US OB TRANSVAGINALon 2 022 Patient Name: LUZ OLIVEIRA Ultrasound ACCESSION EXAM DATE/TIME PROCEDURE ORDERING PROVIDER [id number] 08/04/2022 12:05 EDT [place] [id number] HARRISON Transvaginal CPT code 17030 Reason For Exam (US Transvaginal) 7 weeks [...] ALFRED Transcribed Date and Time: 08/04/2022 12:31 [facility] Silas Pickens DO - 08/04/2022 Patient Name: LUZ OLIVEIRA Ultrasound ACCESSION EXAM DATE/TIME PROCEDURE ORDERING PROVIDER [id number] 08/04/2022 12:05 EDT US MELANIA OCAMPO Transvaginal CPT code 18777 Reason For Exam (US Transvaginal) 7 weeks [...] By : Silas Pickens on 08-04-2022 [facility] Work Phone: US Transvaginalon 08-04-2022 US Transvaginal Patient Name: LUZ OLIVEIRA Ultrasound ACCESSION EXAM DATE/TIME PROCEDURE ORDERING PROVIDER [id number] 08/04/2022 12:05 EDT [place] [id number] -AUSTYNIRAI, ANIS Transvaginal CPT code 11159 Reason For Exam (US Transvaginal) 7 weeks [...] Time: 08/04/2022 12:31 Normal [facility] hCG Quantitativeon hCG Quantitative 3840 m[IU]/mL Normal [facility] Comment on above: Result Comment: Fema les [...] gestational trophoblastic disease. Performed By: #### H [facility], QWNT5 #### [facility] [address] [place] [address] CNCOon 07-20-2022 CNCO Letter Text Normal [facility] Eliecer 07-09-2022 [facility] Telephone (AGGetMyBoat) LUZ OLIVEIRA ([id number]) 2000 F Date Time Provider Department 07/09/22 [...] (FLONASE) 50 mcg/actuation nasal spray Use 1 [place] in each nostril once daily. 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] 07/10/2014 Headache [R51] 07/10/2014 Unintentional weight loss [R63.4] 07/10/2014 Papanicolaou smear of cervix with low grade squ*05/21/2021 Letter Text Encounter Status:Closed by VERÓNICA ALEGRE on 07/09/22 Normal [facility] Absolute lymphocyte counton 06-29-2022 Lymphocytes Auto (Unsp spec) [#/Vol] 1.79 10*3/uL 0.83-4.51 [facility] Work Phone: Basophil percentageon 2021 Basophil percentage 0-5 SEEN /hpf 0-5 [facility] Work Phone: Basophils/100 WBC (Bld) 0.1 % 0-1 [facility] Work Phone: Chloride [Moles/Vol] 106 mmol/L 98-[address] [facility] Work Phone: Eosinophils/100 WBC (Bld) 0.2 % 0-5 [facility] Work Phone: Glucose [Mass/Vol] 98 mg/dL 74-106 [facility] Work Phone: Neutrophils (Bld) [#/Vol] 6.1 10*3/uL 2.0-7.7 [facility] Work Phone: Neutrophils/100 WBC (Bld) 72.2 % 47-70 [facility] Work Phone: Potassium [Moles/Vol] 3.9 mmol/L 3.5-5.1 [facility] Work Phone: Sodium [Moles/Vol] 142 mmol/L 136-145 [facility] Work Phone: WBC (Bld) [#/Vol] 8.5 10*3/uL 4.4-11.0 [facility] Work Phone: Beta hCG serum qualon 2021 Beta HCG ( test) Ql Negative [facility] Work Phone: Bilirubin Test strip Ql (U)o n 06-29-2022 Bilirubin Ql (U) Negative Negative [facility] Work Phone: Blood erythrocytes count (nu mber/volume)on 06-29-2022 RBC (Bld) [#/Vol] 4.44 10*6/uL 4.2-5.4 [facility] Work Phone: Blood hemoglobin measurement (mass/volume)on 06-29-2022 Hemoglobin (Bld) [Mass/Vol] 13.7 g/dL 12.0-15.0 [facility] Work Phone: Blood lymphocytes/100 leukoc yteson 06-29-2022 Lymphocytes/100 WBC (Bld) 21.2 % 19-41 [facility] Work Phone: Blood monocytes/100 leukocyt eson 06-29-2022 Monocytes/100 WBC (Bld) 5.8 % 0-10 [facility] Work Phone: [phone] Blood platelet mean volumeon 06-29-2022 Platelet mean volume (Bld) [Entitic vol] 9.9 fL 6.2-12.0 [facility] Work Phone: Determination of erythrocyte mean corpuscular volume (MCV)on 06-29-2022 MCV (RBC) [Entitic vol] 90.5 fL 81-99 [facility] Work Phone: Hematocrit Auto (Bld) [Volum e fraction]on 06-29-2022 Hematocrit (Bld) [Volume fraction] 40.2 % 37-47 [facility] Work Phone: [phone] Ketones Test strip Ql (U)on 06-29-2022 Ketones Ql (U) Negative Negative [facility] Work Phone: Laboratory - Chemistry and C hemistry - challengeon 06-29-2022 CO2 [Moles/Vol] 28.0 mmol/L 21.0-32.0 [facility] Work Phone: Urea nitrogen/Creatinine [Mass ratio] 23.1 mg/mg 10-20 [facility] Work Phone: [phone] Laboratory - Hematology and Cell countson 06-29-2022 Erythrocyte distribution width (RBC) [Entitic vol] 41.0 fL 35.1-43.9 [facility] Work Phone: [phone] Erythrocyte distribution width (RBC) [Ratio] 12.7 % 11.6-14.6 [facility] Work Phone: [phone] Immature granulocytes/100 WBC (Bld) 0.500 % 0.0-0.9 [facility] Work Phone: [phone] Comment on above: IG% - Immature Granu locytes (promyelocytes, myelocytes and metamyelocytes) > 1% indicates that a LEFT SHIFT is Present. MCH (RBC) [Entitic mass] 30.9 pg 27.0-32.0 [facility] Work Phone: Nucleated RBC/100 WBC (Bld) [Ratio] 0 % 0-5 [facility] Work Phone: MCHC Auto (RBC) [Mass/Vol]on 06-29-2022 MCHC (RBC) [Mass/Vol] 34.1 g/dL 32-36 [facility] Work Phone: Mucus LM Ql (Urine sed)on Mucus Ql (Urine sed) 0 SEEN /hpf [facility] Work Phone: Nitrite Test strip Ql (U)on 06-29-2022 Nitrite Ql (U) Negative Negative [facility] Work Phone: No Panel Informationon 06-29 Estimated Creatinine Clearance Calc 89.98 ml/min [facility] Work Phone: Estimated GFR (MDRD) Amer 126 mL/min >60 [facility] Work Phone: Comment on above: GFR Calc Estimated GFR (MDRD) Non-Af Amer 104 mL/min >60 [facility] Work Phone: Comment on above: Non- GFR Calc Platelets bldon 06-29-2022 Platelets (Bld) [#/Vol] 287 10*3/uL 150-450 [facility] Work Phone: Protein Test strip Ql (U)on 06-29-2022 Protein Ql (U) 30 mg/dl Negative [facility] Work Phone: [phone] Serum or plasma calcium sabino urement (mass/volume)on 06-29-2022 Calcium [Mass/Vol] 9.7 mg/dL 8.5-10.1 [facility] Work Phone: [phone] Serum or plasma creatinine m easurement (mass/volume)on 06-29-2022 Creatinine [Mass/Vol] 0.74 mg/dL 0.55-1.02 [facility] Work Phone: Comment on above: The validity of the calculated GFR & GFRAA in patients over 70 years has not been determined. Clinical correlation is essential. Serum or plasma urea nitroge n measurement (mass/volume)on 06-29-2022 Urea nitrogen [Mass/Vol] 17 mg/dL 7-18 [facility] Work Phone: Squamous epithelial cells de tection in urine sediment by light microscopyon 06-29-2022 Epithelial cells.squamous LM Ql (Urine sed) 0-5 SEEN /hpf 5-10 [facility] Work Phone: Thin prep Papanicolaou smear with manual screeningon 06-29-2022 Thin prep Papanicolaou smear with manual screening 8 5-15 [facility] Work Phone: Urine blood detectionon 06-11 RBC Ql (U) 25 /ul Negative [facility] Work Phone: RBC Ql (U) 0-5 SEEN /hpf 0-5 [facility] Work Phone: Urine clarityon 06-29-2022 Clarity (U) Clear Clear [facility] Work Phone: Urine color determinationon 06-29-2022 Color (U) Yellow Yellow [facility] Work Phone: Urine glucose detectionon Glucose Ql (U) Normal mg/dl Normal [facility] Work Phone: Urine leukocyte esterase det ection by dipstickon 06-29-2022 Leukocyte esterase Test strip Ql (U) 25 /ul Negative [facility] Work Phone: [phone] Urine pHon 06-29-2022 pH (U) 6.5 [pH] 5.0 - 8.0 [facility] Work Phone: Urine sediment bacteria coun t by microscopy (number/high power field)on 06-29-2022 Bacteria LM.HPF (Urine sed) [#/Area] 0 /[HPF] None Seen [facility] Work Phone: Urine specific gravity measu rementon 06-29-2022 Specific gravity (U) [Rel density] 1.010 1.002-1.030 [facility] Work Phone: Urobilinogen Auto test strip Ql (U)on 06-29-2022 Urobilinogen Ql (U) Normal mg/dl Normal [facility] Work Phone: CBC W Auto Differential pane l (Bld)on 05-31-2022 Basophils (Bld) [#/Vol] 10*3/uL Normal <0.11 [facility] Comment on above: Order Comment: Speci men Type: BLOOD SPECIMENOrdering Facility: [facility] Address: [address] [address] Performed By: #### 5 7021-8 ####[facility] LABORATORYCLIA [id number] [address] [place] Basophils/100 WBC (Bld) 0.0 % Normal [facility] Comment on above: Order Comment: Speci men Type: BLOOD SPECIMENOrdering Facility: [facility] Address: [address] [place] [address] Performed By: #### 5 7021-8 ####[facility] LABORATORYCLIA [id number] [address] [place] Differential cell count method Nom (Bld) Auto Normal [facility] Comment on above: Order Comment: Speci men Type: BLOOD SPECIMENOrdering Facility: [facility] Address: [address] [place] [address] Performed By: #### 5 7021-8 ####[facility]ORATORYCLIA [id number] [place] [address] [place] Eosinophils (Bld) [#/Vol] 10*3/uL Normal <0.46 [facility] Comment on above: Order Comment: Speci men Type: BLOOD SPECIMENOrdering Facility: [facility] Address: [address] [place] [address] Performed By: #### 5 7021-8 ####[facility]ORATORYCLIA [id number] [place] [address] [place] Eosinophils/100 WBC (Bld) 0.2 % Normal [facility] Comment on above: Order Comment: Speci men Type: BLOOD SPECIMENOrdering Facility: [facility] Address: [address] [place] [address] Performed By: #### 5 7021-8 ####[facility] LABORATORYCLIA [id number] [address] Erythrocyte distribution width (RBC) [Ratio] 12.5 % Normal 11.5-15.0 [facility] Comment on above: Order Comment: Speci men Type: BLOOD SPECIMENOrdering Facility: [facility] Address: [address] [place] [address] Performed By: #### 5 7021-8 ####[facility] LABORATORYCLIA [id number] [address] Hematocrit (Bld) [Volume fraction] 38.8 % Normal 36.0-46.0 [facility] Comment on above: Order Comment: Speci men Type: BLOOD SPECIMENOrdering Facility: [facility] Address: [address] [place] [address] Performed By: #### 5 7021-8 ####[facility] LABORATORYCLIA [id number] [address] Hemoglobin (Bld) [Mass/Vol] 13.4 g/dL Normal 11.5-15.5 [facility] Comment on above: Order Comment: Speci men Type: BLOOD SPECIMENOrdering Facility: [facility] Address: [address] [place] [address] Performed By: #### 5 7021-8 ####[facility] LABORATORYCLIA [id number] [address] IMMATURE GRAN % 0.2 % Normal [facility] Comment on above: Order Comment: Speci men Type: BLOOD SPECIMENOrdering Facility: [facility] Address: [address] [place] [address] Performed By: #### 5 7021-8 ####[facility] LABORATORYCLIA [id number] [place] [address] IMMATURE GRAN ABS <0.03 Normal <0.10 [facility] Comment on above: Order Comment: Speci men Type: BLOOD SPECIMENOrdering Facility: [facility] Address: [address] [place] [address] Performed By: #### 5 7021-8 ####[facility] LABORATORYCLIA [id number] [address] [facility] Lymphocytes (Bld) [#/Vol] 1.08 10*3/uL Normal 1.00-4.00 [facility] Comment on above: Order Comment: Speci men Type: BLOOD SPECIMENOrdering Facility: [facility] Address: [address] [place] [address] Performed By: #### 5 7021-8 ####[facility] LABORATORYCLIA [id number] [address] Lymphocytes/100 WBC (Bld) 26.3 % Normal [facility] Comment on above: Order Comment: Speci men Type: BLOOD SPECIMENOrdering Facility: [facility] Address: [address] [place] [address] Performed By: #### 5 7021-8 ####[facility] LABORATORYCLIA [id number] [address] MCH (RBC) [Entitic mass] 30.2 pg Normal 26.0-34.0 [facility] Comment on above: Order Comment: Speci men Type: BLOOD SPECIMENOrdering Facility: [facility] Address: [address] [place] [address] Performed By: #### 5 7021-8 ####[facility] LABORATORYCLIA [id number] [address] MCHC (RBC) [Mass/Vol] 34.5 g/dL Normal 30.5-36.0 [facility] Comment on above: Order Comment: Speci men Type: BLOOD SPECIMENOrdering Facility: [facility] Address: [address] [place] [address] Performed By: #### 5 7021-8 ####[facility]ATORYCLIA [id number] [address] [place] MCV (RBC) [Entitic vol] 87.6 fL Normal 80.0-100.0 [facility] Comment on above: Order Comment: Speci men Type: BLOOD SPECIMENOrdering Facility: [facility] Address: [address] [place] [address] Performed By: #### 5 7021-8 ####[facility]ORATORYCLIA [id number] [address] [place] Monocytes (Bld) [#/Vol] 0.34 10*3/uL Normal <0.87 [facility] Comment on above: Order Comment: Speci men Type: BLOOD SPECIMENOrdering Facility: [facility] Address: [address] [place] [address] Performed By: #### 5 7021-8 ####[facility] LABORATORYCLIA [id number] [address] Monocytes/100 WBC (Bld) 8.3 % Normal [facility] Comment on above: Order Comment: Speci men Type: BLOOD SPECIMENOrdering Facility: [facility] Address: [address] [place] [address] Performed By: #### 5 7021-8 ####[facility] LABORATORYCLIA [id number] [address] [place] Neutrophils (Bld) [#/Vol] 2.66 10*3/uL Normal 1.45-7.50 [facility] Comment on above: Order Comment: Speci men Type: BLOOD SPECIMENOrdering Facility: [facility] Address: [address] [place] [address] Performed By: #### 5 7021-8 ####[facility] LABORATORYCLIA [id number] [address] [place] Neutrophils/100 WBC (Bld) 65.0 % Normal [facility] Comment on above: Order Comment: Speci men Type: BLOOD SPECIMENOrdering Facility: [facility] Address: [address] Performed By: #### 5 7021-8 ####[facility] LABORATORYCLIA [id number] [address] Nucleated RBC (Bld) [#/Vol] 10*3/uL Normal <0.01 [facility] Comment on above: Order Comment: Speci men Type: BLOOD SPECIMENOrdering Facility: [facility] Address: [address] Performed By: #### 5 7021-8 ####[facility] LABORATORYCLIA [id number] [address] Nucleated RBC/100 WBC (Bld) [Ratio] 0.0 /100 WBC Normal [facility] Comment on above: Order Comment: Speci men Type: BLOOD SPECIMENOrdering Facility: [facility] Address: [address] [place] [address] Performed By: #### 5 7021-8 ####[facility] LABORATORYCLIA [id number] [address] STATES [facility] Platelet mean volume (Bld) [Entitic vol] 9.7 fL Normal 9.0-12.7 [facility] Comment on above: Order Comment: Speci men Type: BLOOD SPECIMENOrdering Facility: [facility] Address: [address] Performed By: #### 5 7021-8 ####[facility] LABORATORYCLIA [id number] [address] Platelets (Bld) [#/Vol] 178 10*3/uL Normal 150-400 [facility] Comment on above: Order Comment: Speci men Type: BLOOD SPECIMENOrdering Facility: [facility] Address: [address] [place] [address] Performed By: #### 5 7021-8 ####[facility] LABORATORYCLIA [id number] [address] [place] RBC (Bld) [#/Vol] 4.43 10*6/uL Normal 3.90-5.20 [facility] Comment on above: Order Comment: Speci men Type: BLOOD SPECIMENOrdering Facility: [facility] Address: [address] [place] [address] Performed By: #### 5 7021-8 ####[facility] LABORATORYCLIA [id number] [address] [facility] WBC (Bld) [#/Vol] 4.10 10*3/uL Normal 3.70-11.00 [facility] Comment on above: Order Comment: Speci men Type: BLOOD SPECIMENOrdering Facility: [facility] Address: [address] [place] [address] Performed By: #### 5 7021-8 ####[facility] LABORATORYCLIA [id number] [address] Comprehensive metabolic 2000 panelon 05-31-2022 Albumin [Mass/Vol] 4.5 g/dL Normal 3.9-4.9 [facility] Comment on above: Order Comment: Speci men Type: BLOOD SPECIMENOrdering Facility: [facility] Address: [address] [place] [address] Performed By: #### 3 040-3, 14964-7, 38515-0 ####[facility] LABORATORYCLIA [id number] [address] STATES OF [facility] ALP [Catalytic activity/Vol] 60 U/L Normal 34-123 [facility] Comment on above: Order Comment: Speci men Type: BLOOD SPECIMENOrdering Facility: [facility] Address: [address] [place] [address] Performed By: #### 3 040-3, 89043-9, 15381-4 ####[facility] LABORATORYCLIA [id number] [address] [facility] ALT With P-5'-P [Catalytic activity/Vol] 55 U/L High 7-38 [facility] Comment on above: Order Comment: Speci men Type: BLOOD SPECIMENOrdering Facility: [facility] Address: [address] [place] [address] Performed By: #### 3 040-3, , ####[facility] LABORATORYCLIA [id number] [address] STATES OF [facility] Anion gap [Moles/Vol] 12 mmol/L Normal 9-18 [facility] Comment on above: Order Comment: Speci men Type: BLOOD SPECIMENOrdering Facility: [facility] Address: [address] [place] [address] Performed By: #### 3 040-3, , ####[facility] LABORATORYCLIA [id number] [place] [address] [place] AST With P-5'-P [Catalytic activity/Vol] 57 U/L High 13-35 [facility] Comment on above: Order Comment: Speci men Type: BLOOD SPECIMENOrdering Facility: [facility] Address: [address] [place] [address] Performed By: #### 3 040-3, , ####[facility] LABORATORYCLIA [id number] [place] [address] [place] Bilirubin [Mass/Vol] 0.5 mg/dL Normal 0.2-1.3 [facility] Comment on above: Order Comment: Speci men Type: BLOOD SPECIMENOrdering Facility: [facility] Address: [address] [place] [address] Performed By: #### 3 040-3, 43431-7, ####[facility] LABORATORYCLIA [id number] [address] [place] Calcium [Mass/Vol] 8.9 mg/dL Normal 8.5-10.2 [facility] Comment on above: Order Comment: Speci men Type: BLOOD SPECIMENOrdering Facility: [facility] Address: [address] [place] [address] Performed By: #### 3 040-3, 84114-3, ####[facility] LABORATORYCLIA [id number] [place] [address] [place] Chloride [Moles/Vol] 102 mmol/L Normal 97-105 [facility] Comment on above: Order Comment: Speci men Type: BLOOD SPECIMENOrdering Facility: [facility] Address: [address] [place] [address] Performed By: #### 3 040-3, 89164-5, ####[facility] LABORATORYCLIA [id number] [place] [address] [place] CO2 [Moles/Vol] 25 mmol/L Normal 22-30 [facility] Comment on above: Order Comment: Speci men Type: BLOOD SPECIMENOrdering Facility: [facility] Address: [address] [place] [address] Performed By: #### 3 040-3, , ####[facility] LABORATORYCLIA [id number] [address] [facility] Creatinine [Mass/Vol] 0.74 mg/dL Normal 0.58-0.96 [facility] Comment on above: Order Comment: Speci men Type: BLOOD SPECIMENOrdering Facility: [facility] Address: [address] [place] [address] Performed By: #### 3 040-3, , ####[facility] LABORATORYCLIA [id number] [address] ESTIMATED GLOMERULAR FILTRATION RATE 117 mL/min/1.73m??? Normal >=60 [facility] Comment on above: Order Comment: Speci men Type: BLOOD SPECIMENOrdering Facility: [facility] Address: [address] [place] [address] Result Comment: Tierra mated Glomerular Filtration Rate [...] GFR. Performed By: #### 3 040-3, , ####[facility] LABORATORYCLIA [id number] [place] [address] [place] Glucose [Mass/Vol] 91 mg/dL Normal 74-99 [facility] Comment on above: Order Comment: Eloise lopez Type: BLOOD SPECIMENOrdering Facility: [facility] Address: [address] [place] [address] Result Comment: The [employer] Diabetes Association (ADA) provides guidance for cutoff [...] Standards of Medical Care in Diabetes 2016, [employer] Diabetes Association. Diabetes Care. 2016.39(Suppl 1). Performed By: #### 3 040-3, , ####[facility] LABORATORYCLIA [id number] [place] [id number] [place] Potassium [Moles/Vol] 3.6 mmol/L Low 3.7-5.1 [facility] Comment on above: Order Comment: Eloise lopez Type: BLOOD SPECIMENOrdering Facility: [facility] Address: [address] [place] [address] Performed By: #### 3 040-3, , ####[facility] LABORATORYCLIA [id number] [place] [address] [place] Protein [Mass/Vol] 6.7 g/dL Normal 6.3-8.0 [facility] Comment on above: Order Comment: Speci men Type: BLOOD SPECIMENOrdering Facility: [facility] Address: [address] [place] [address] Performed By: #### 3 040-3, , ####[facility] LABORATORYCLIA [id number] [address] [facility] Sodium [Moles/Vol] 139 mmol/L Normal 136-144 [facility] Comment on above: Order Comment: Speci men Type: BLOOD SPECIMENOrdering Facility: [facility] Address: [address] [place] [address] Performed By: #### 3 040-3, 12275-4, ####[facility] LABORATORYCLIA [id number] [address] [place] Urea nitrogen [Mass/Vol] 7 mg/dL Normal 7-21 [facility] Comment on above: Order Comment: Speci men Type: BLOOD SPECIMENOrdering Facility: [facility] Address: [address] [place] [address] Performed By: #### 3 040-3, 82844-5, ####[facility] LABORATORYCLIA [id number] [address] ED NOTEon 05-31-2022 ED NOTE HNO ID: [id number] Author: Agueda Meng RN Service: Emergency Medicine Author Type: Registered Nurse Type: ED Notes Filed: 05/31/2022 2:42 PM Note Text: Pt alert and oriented x 4, speaking in full sentences with unlabored breathing. Pt verbalizes understanding of discharge paperwork. Pt ambulated from department without difficulty. Normal [facility] ED NOTE HNO ID: [id number] Author: Agueda Meng RN Service: Emergency Medicine [...] Is at bedside at this time. Normal [facility] ED NOTE HNO ID: [id number] Author: Agueda Meng RN Service: Emergency Medicine Author Type: Registered Nurse Type: ED Notes Filed: 05/31/2022 12:14 PM Note Text: POC BG 80 Normal [facility] ED NOTE HNO ID: [id number] Author: Agueda Meng RN Service: Emergency Medicine Author Type: Registered Nurse Type: ED Notes Filed: 05/31/2022 11:36 AM Note Text: Pt c/o weakness along with generalized illness symptoms. Pt placed on the bedside case monitor at this time. Normal [facility] ED NOTE HNO ID: [id number] Author: Danuta Staley RN Service: ? Author Type: Registered Nurse Type: ED Notes Filed: 05/31/2022 11:04 AM Note Text: Bed: 46-ED Expected date: Expected time: Means of arrival: Comments: triage Normal [facility] ED PROV NOTEon 05-31-2022 ED PROV NOTE HNO ID: [id number] Author: Hiwot Hudson MD Service: Emergency Medicine [...] PM Hiwot Hudson MD 05/31/22 1548 Normal [facility] ED PROV NOTE HNO ID: [id number] Author: Hiwot Hudson MD Service: Emergency Medicine [...] Diagnosis Date Cognitive disorder IEP per the [facility] Psych[facility] Kidney stone Migraine [...] ED Course (more content not included)... Normal [facility] EKGon 05-31-2022 Electrocardiogram Ventricular Rate : 7 1 BPM Atrial Rate : 71 BPM P-R Interval : 118 ms QRS Duration : 84 ms Q-T Interval : 448 ms QTC Calculation(Bazett) : 486 ms Calculated P Latham : 23 degrees Calculated R Latham : 58 degrees Calculated T Latham : 27 degrees NORMAL SINUS RHYTHM NONSPECIFIC T WAVE ABNORMALITY PROLONGED QT ABNORMAL ECG NO PREVIOUS ECGS AVAILABLE Confirmed by KAUSHIK GUADALUPE MD ([id number]) on 06/04/2022 3:38:07 AM NAME : LUZ OLIVEIRA PID : [id number] : 2000 Gender : Female Race : ORD : Procedure Date : May 31 2022 13:06:20 Edit Date : Jun 04 2022 03:38:08 Diagnosis: NORMAL SINUS RHYTHM NONSPECIFIC T WAVE ABNORMALITY PROLONGED QT ABNORMAL ECG NO PREVIOUS ECGS AVAILABLE Confirmed by KAUSHIK GUADALUPE MD ([id number]) on 06/04/2022 3:38:07 AM Test Reason : Location : 4 : [place] Overread By : KAUSHIK GUADALUPE MD Edited By : KAUSHIK GUADALUPE MD Referred By : , Acquired by : FRIEDKIRTI Normal [facility] HCG Preg Ur Qlon 05-31-2022 HCG ( test) Ql (U) Negative Normal Negative [facility] Comment on above: Order Comment: Speci men Type: URINE SPECIMENOrdering Facility: [facility] Address: [address] [place], [place] [address] Result Comment: This test is intended to aid in the early detection of . Very dilute urine samples, as indicated by a low specific gravity, may not contain medical service representative levels of hCG. This test [...] for . Performed By: #### 2 106-3 ####[facility] LABORATORYCLIA [id number] [place] [address] [place] Lipase SerPl-cCncon 05-31-20 Lipase [Catalytic activity/Vol] 17 U/L Normal 16-61 [facility] Comment on above: Order Comment: Speci men Type: BLOOD SPECIMENOrdering Facility: [facility] Address: [address] [place] [address] Performed By: #### 3 040-3, 74638-0, 74681-1 ####[facility] LABORATORYCLIA [id number] [place] [address] [place] Magnesium SerPl-mCncon 05-31 Magnesium [Mass/Vol] 1.8 mg/dL Normal 1.7-2.3 [facility] Comment on above: Order Comment: Speci men Type: BLOOD SPECIMENOrdering Facility: [facility] Address: [address] [place] [address] Performed By: #### 3 040-3, 80488-5, 92265-8 ####[facility] LABORATORYCLIA [id number] [place] [address] [place] ROUTINE FLU A/B + RSVon 08- FLUAV RNA CHICHO+probe Ql (Unsp spec) Negative Normal Negative for Influenza A by RT-PCR [facility] Comment on above: Order Comment: Speci men Type: SWAB OF INTERNAL NOSEOrdering Facility: [facility] Address: [address] [place] [address] Performed By: #### R TFRSV, 31329-2 ####[facility] LABCLIA [id number] [address] [place] FLUBV RNA CHICHO+probe Ql (Unsp spec) Negative Normal Negative for Influenza B by RT-PCR [facility] Comment on above: Order Comment: Speci men Type: SWAB OF INTERNAL NOSEOrdering Facility: [facility] Address: [address] [place] [address] Performed By: #### R TFRSV, 76981-8 ####[facility] LABCLIA [id number] [place] [address] [place] RSV A RNA CHICHO+probe Ql (Unsp spec) Negative Normal Negative for Respiratory Syncytial Virus (RSV) by PCR [facility] Comment on above: Order Comment: Speci men Type: SWAB OF INTERNAL NOSEOrdering Facility: [facility] Address: [address] [place] [address] Performed By: #### R TFRSV, 37772-3 ####[facility] LABCLIA [id number] [place] [address] [place] SARS-CoV-2 RNA Resp Ql CHICHO+p robeon 05-31-2022 SARS-CoV-2 (COVID-19) RNA CHICHO+probe Ql (Resp) SARS-CoV-2 (Agent of COVID-19) Detected by RT-PCR or equivalent method. Abnormal Not Detected [facility] Comment on above: Order Comment: Speci men Type: SWAB OF INTERNAL NOSEOrdering Facility: [facility] Address: [address] [place] [address] Result Comment: This test was developed and its performance characteristics determined by [facility] [place]. This test has been authorized by FDA under an Emergency Use Authorization (EUA). This test has been validated in accordance with the FDA's Guidance Document Policy for Diagnostics Testing in Laboratories Certified to Perform High Complexity Testing under CLIA prior to Emergency use Authorization for Coronavirus Disease 2019 during the Public Health Emergency issued on December 09, 2019. Test performed by [facility], [facility] [place], [address] [place] [address]. Performed By: #### R [facility], 52981-5 ####[facility] LABCLIA [id number] [address] [place] Urinalysis complete panel (U )on 05-31-2022 Bilirubin Ql (U) Negative Normal Negative [facility] Comment on above: Order Comment: Speci men Type: URINE SPECIMENOrdering Facility: [facility] Address: [address] [place] [address] Performed By: #### 2 4356-8 ####[facility] LABORATORYCLIA [id number] [address] [place] Clarity (Unsp spec) Clear Normal Clear [facility] Comment on above: Order Comment: Speci men Type: URINE SPECIMENOrdering Facility: [facility] Address: [address] [place] [address] Performed By: #### 2 4356-8 ####[facility] LABORATORYCLIA [id number] [address] [place] Color (U) Colorless Normal yellow [facility] Comment on above: Order Comment: Speci men Type: URINE SPECIMENOrdering Facility: [facility] Address: [address] [place] [address] Performed By: #### 2 4356-8 ####[facility] LABORATORYCLIA [id number] [address] Glucose Test strip (U) [Mass/Vol] Negative Normal Negative [facility] Comment on above: Order Comment: Speci men Type: URINE SPECIMENOrdering Facility: [facility] Address: [address] [place] [address] Performed By: #### 2 4356-8 ####[facility] LABORATORYCLIA [id number] [address] Hemoglobin Ql (U) Negative Normal Negative [facility] Comment on above: Order Comment: Speci men Type: URINE SPECIMENOrdering Facility: [facility] Address: [address] [place] [address] Performed By: #### 2 4356-8 ####[facility] LABORATORYCLIA [id number] [address] [place] Ketones Ql (U) 2+ Abnormal Negative [facility] Comment on above: Order Comment: Speci men Type: URINE SPECIMENOrdering Facility: [facility] Address: [address] [place] [address] Performed By: #### 2 4356-8 ####[facility]ORATORYCLIA [id number] [address] Leukocyte esterase Test strip Ql (U) Negative Normal Negative [facility] Comment on above: Order Comment: Speci men Type: URINE SPECIMENOrdering Facility: [facility] Address: [address] [place] [address] Performed By: #### 2 4356-8 ####[facility] LABORATORYCLIA [id number] [place] [address] [place] Nitrite Ql (U) Negative Normal Negative [facility] Comment on above: Order Comment: Speci men Type: URINE SPECIMENOrdering Facility: [facility] Address: [address] [place] [address] Performed By: #### 2 4356-8 ####[facility] LABORATORYCLIA [id number] [address] STATES [facility] pH (U) 7.5 [pH] Normal 5.0-8.0 [facility] Comment on above: Order Comment: Speci men Type: URINE SPECIMENOrdering Facility: [facility] Address: [address] [place] [address] Performed By: #### 2 4356-8 ####[facility] LABORATORYCLIA [id number] [address] STATES [facility] Protein (U) [Mass/Vol] Negative Normal Negative [facility] Comment on above: Order Comment: Speci men Type: URINE SPECIMENOrdering Facility: [facility] Address: [address] [place] [address] Performed By: #### 2 4356-8 ####[facility] LABORATORYCLIA [id number] [address] [place] RBC LM.HPF (Urine sed) [#/Area] 0-3 /HPF Normal 0-3 /HPF [facility] Comment on above: Order Comment: Speci men Type: URINE SPECIMENOrdering Facility: [facility] Address: [address] [place] [address] Performed By: #### 2 4356-8 ####[facility] LABORATORYCLIA [id number] [address] Urobilinogen Ql (U) Normal Normal Negative [facility] Comment on above: Order Comment: Speci men Type: URINE SPECIMENOrdering Facility: [facility] Address: [address] [place] [address] Performed By: #### 2 4356-8 ####[facility] LABORATORYCLIA [id number] [address] [place] WBC LM.HPF (Urine sed) [#/Area] 0-5 /HPF Normal 0-5 /HPF [facility] Comment on above: Order Comment: Speci men Type: URINE SPECIMENOrdering Facility: [facility] Address: [address] [place] [address] Performed By: #### 2 4356-8 ####[facility] LABORATORYCLIA [id number] [address] Urinalysis complete pnl Uron 05-31-2022 Specific gravity (U) [Rel density] 1.005 Normal 1.005-1.030 [facility] Comment on above: Order Comment: Speci men Type: URINE SPECIMENOrdering Facility: [facility] Address: [address] [place] [address] Performed By: #### 2 4356-8 ####[facility] LABORATORYCLIA [id number] [address] Result Comment: If s pecific gravity is <1.005 then results may be falsely negative. Serum HCG is recommended. Performed By: #### 2 106-3 ####[facility] LABORATORYCLIA [id number] [address] ALLIED HEALTHon 12-31-2021 ALLIED HEALTH HNO ID: [id number] Author: RT Tierney(R) Service: Radiology Author Type: Principal Trainer Type: Allied Health Filed: 12/31/2021 7:25 PM [...] December 31, 2021 TIME: 7:20 PM Normal [facility] Bacteria Ur Culton 2 Bacteria identified Cx Nom (U) CULTURE, URINE: Three or more urogenital den organisms. No predominating uropathogen. Recollect if clinically indicated. Normal [facility] [facility] Comment on above: Performed By: #### 6 30-4 #### [facility] CLIA [id number] [address] STATES OF [facility] CBC W Auto Differential pane l (Bld)on 12-31-2021 Basophils (Bld) [#/Vol] 10*3/uL Normal <0.11 [facility] Comment on above: Order Comment: Speci men Type: BLOOD SPECIMENOrdering Facility: [facility] Address: [address] [place] [address] [place] [address] Performed By: #### 5 7021-8 ####[facility] LABCLIA [id number] [address] STATES OF [facility] Basophils/100 WBC (Bld) 0.1 % Normal [facility] Comment on above: Order Comment: Speci men Type: BLOOD SPECIMENOrdering Facility: [facility] Address: [address] [place] [address] Performed By: #### 5 7021-8 ####[facility] [id number] [facility] [place] [address] [facility] Differential cell count method Nom (Bld) Auto Normal [facility] Comment on above: Order Comment: Speci men Type: BLOOD SPECIMENOrdering Facility: [facility] Address: [address] [place] [address] Performed By: #### 5 7021-8 ####[facility] [id number] [facility] [place] [address] [facility] Eosinophils (Bld) [#/Vol] 0.03 10*3/uL Normal <0.46 [facility] Comment on above: Order Comment: Speci men Type: BLOOD SPECIMENOrdering Facility: [facility] Address: [address] [place] [address] Performed By: #### 5 7021-8 ####[facility] [id number] [facility], [facility] Eosinophils/100 WBC (Bld) 0.3 % Normal [facility] Comment on above: Order Comment: Speci men Type: BLOOD SPECIMENOrdering Facility: [facility] Address: [address] [place] [address] Performed By: #### 5 7021-8 ####[facility]CLIA [id number] [facility] [place] [address] [facility] [place] Erythrocyte distribution width (RBC) [Ratio] 12.0 % Normal 11.5-15.0 [facility] Comment on above: Order Comment: Speci men Type: BLOOD SPECIMENOrdering Facility: [facility] Address: [address] [place] [address] Performed By: #### 5 7021-8 ####[facility] [id number] [facility] [address] [place] Hematocrit (Bld) [Volume fraction] 40.3 % Normal 36.0-46.0 [facility] Comment on above: Order Comment: Speci men Type: BLOOD SPECIMENOrdering Facility: [facility] Address: [address] [place] [address] Performed By: #### 5 7021-8 ####[facility] [id number] [facility] [address] [place] Hemoglobin (Bld) [Mass/Vol] 13.8 g/dL Normal 11.5-15.5 [facility] Comment on above: Order Comment: Speci men Type: BLOOD SPECIMENOrdering Facility: [facility] Address: [address] [place] [address] Performed By: #### 5 7021-8 ####[facility] [employer] LABCLIA [id number] [facility] [place] [address] [place] Lymphocytes (Bld) [#/Vol] 1.98 10*3/uL Normal 1.00-4.00 [facility] Comment on above: Order Comment: Speci men Type: BLOOD SPECIMENOrdering Facility: [facility] Address: [address] [place] [address] Performed By: #### 5 7021-8 ####[facility] LABCLIA [id number] [facility] [place] [address] [place] Lymphocytes/100 WBC (Bld) 20.3 % Normal [facility] Comment on above: Order Comment: Speci men Type: BLOOD SPECIMENOrdering Facility: [facility] Address: [address] [place] [address] Performed By: #### 5 7021-8 ####[facility] LABCLIA [id number] [facility] [place] [address] [place] MCH (RBC) [Entitic mass] 30.7 pg Normal 26.0-34.0 [facility] Comment on above: Order Comment: Speci men Type: BLOOD SPECIMENOrdering Facility: [facility] Address: [address] [place] [address] Performed By: #### 5 7021-8 ####[facility] [id number] [facility] [address] [place] MCHC (RBC) [Mass/Vol] 34.2 g/dL Normal 30.5-36.0 [facility] Comment on above: Order Comment: Speci men Type: BLOOD SPECIMENOrdering Facility: [facility] Address: [address] [place] [address] Performed By: #### 5 7021-8 ####[facility] [id number] [facility] [place] [address] [place] MCV (RBC) [Entitic vol] 89.6 fL Normal 80.0-100.0 [facility] Comment on above: Order Comment: Speci men Type: BLOOD SPECIMENOrdering Facility: [facility] Address: [address] [place] [address] Performed By: #### 5 7021-8 ####[facility] [id number] [facility], [address] Monocytes (Bld) [#/Vol] 0.70 10*3/uL Normal <0.87 [facility] Comment on above: Order Comment: Speci men Type: BLOOD SPECIMENOrdering Facility: [facility] Address: [address] [place] [address] Performed By: #### 5 7021-8 ####[facility] LABCLIA [id number] [facility] [place], [facility]254 [facility] Monocytes/100 WBC (Bld) 7.2 % Normal [facility] Comment on above: Order Comment: Speci men Type: BLOOD SPECIMENOrdering Facility: [facility] Address: [address] [place] [address] Performed By: #### 5 7021-8 ####[facility] LABCLIA [id number] [facility] [place] [address] [facility] [place] Neutrophils (Bld) [#/Vol] 7.02 10*3/uL Normal 1.45-7.50 [facility] Comment on above: Order Comment: Speci men Type: BLOOD SPECIMENOrdering Facility: [facility] Address: [address] [place] [address] Performed By: #### 5 7021-8 ####[facility]CLIA [id number] [place] [address] [place] Neutrophils/100 WBC (Bld) 72.1 % Normal [facility] Comment on above: Order Comment: Speci men Type: BLOOD SPECIMENOrdering Facility: [facility] Address: [address] [place] [address] Performed By: #### 5 7021-8 ####[facility] [id number] [place] [address] [place] Platelet mean volume (Bld) [Entitic vol] 9.7 fL Normal 9.0-12.7 [facility] Comment on above: Order Comment: Speci men Type: BLOOD SPECIMENOrdering Facility: [facility] Address: [address] [place] [address] Performed By: #### 5 7021-8 ####[facility] [id number] [place] [address] [place] Platelets (Bld) [#/Vol] 251 10*3/uL Normal 150-400 [facility] Comment on above: Order Comment: Speci men Type: BLOOD SPECIMENOrdering Facility: [facility] Address: [address] [place] [address] Performed By: #### 5 7021-8 ####[facility] [id number] [place] [address] [place] RBC (Bld) [#/Vol] 4.50 10*6/uL Normal 3.90-5.20 [facility] Comment on above: Order Comment: Speci men Type: BLOOD SPECIMENOrdering Facility: [facility] Address: [address] [place] [address] Performed By: #### 5 7021-8 ####[facility]CLIA [id number] [place] [address] [facility] WBC (Bld) [#/Vol] 9.74 10*3/uL Normal 3.70-11.00 [facility] Comment on above: Order Comment: Speci men Type: BLOOD SPECIMENOrdering Facility: [facility] Address: [address] [place], [place] [address] [id number] Performed By: #### 5 7021-8 ####[facility] LABCLIA [id number] [place] [address] [facility] [place] CT ABD/PEL W IVCONon 022 CT ABD/PEL W IVCON * * *Final Report* * * DATE OF EXAM: Dec 31 2021 7:25PM [facility] 0530 - CT ABD/PEL W IVCON / [...] Tissues: No significant finding. Lower thorax: Unremarkable. Soil Engineer (topogram) images: No additional findings. IMPRESSION: No acute abnormality Atrophic left kidney with cortical scarring and suspected small nonobstructing calculi. Findings may be related to chronic reflux disease or infection Hepatic steatosis Power Shovel Engineer: CAROLA Transcribe Date/Time: Dec 31 2021 7:37P Dictated by : DIYA FUENTES MD This examination was interpreted and the report reviewed and electronically signed by: DIYA FUENTES MD on Dec 31 2021 7:42PM EST [id number] N Normal [facility] Comprehensive metabolic 2000 panelon 12-31-2021 Albumin [Mass/Vol] 4.0 g/dL Normal 3.4-5.0 [facility] Comment on above: Order Comment: Speci men Type: BLOOD SPECIMENOrdering Facility: [facility] Address: [address] [place] [address] Performed By: #### 2 4323-8, ####[employer] [facility] Virtual View App LABCLIA [id number] [place] [address] [place] ALP [Catalytic activity/Vol] 74 U/L Normal 46-116 [facility] Comment on above: Order Comment: Speci men Type: BLOOD SPECIMENOrdering Facility: [facility] Address: [address] [address] Performed By: #### 2 4323-8, ####[facility]IA [id number] [place] [address] [place] ALT With P-5'-P [Catalytic activity/Vol] 55 U/L Normal 12-78 [facility] Comment on above: Order Comment: Speci men Type: BLOOD SPECIMENOrdering Facility: [facility] Address: [address] [address] Performed By: #### 2 432-8, ####[facility]CLIA [id number] [place] [address] [place] Anion gap [Moles/Vol] 2 mmol/L Low 8-16 [facility] Comment on above: Order Comment: Speci men Type: BLOOD SPECIMENOrdering Facility: [facility] Address: [address] [place] [address] Performed By: #### 2 8, ####[facility]IA [id number] [place] [address] [place] AST With P-5'-P [Catalytic activity/Vol] 29 U/L Normal 15-46 [facility] Comment on above: Order Comment: Speci men Type: BLOOD SPECIMENOrdering Facility: [facility] Address: [address] [place] [address] Result Comment: Spec imen slightly hemolyzed. Performed By: #### 2 4323-05, ####[facility] LABCLIA [id number] [place] [address] [place] Bilirubin [Mass/Vol] 0.2 mg/dL Normal 0.2-1.0 [facility] Comment on above: Order Comment: Speci men Type: BLOOD SPECIMENOrdering Facility: [facility] Address: [address] [place], [place] [address] Performed By: #### 2 8, ####[facility]IA [id number] [place] [address] [place] Calcium [Mass/Vol] 9.1 mg/dL Normal 8.5-10.1 [facility] Comment on above: Order Comment: Speci men Type: BLOOD SPECIMENOrdering Facility: [facility] Address: [address] [place], [place] [address] Performed By: #### 2 4328, ####[facility] [id number] [place] [address] [place] Chloride [Moles/Vol] 100 mmol/L Normal 98-107 [facility] Comment on above: Order Comment: Speci men Type: BLOOD SPECIMENOrdering Facility: [facility] Address: [address] [place] [address] Performed By: #### 2 4323-8, ####[facility]CLIA [id number] [facility] [place] [address] [place] CO2 [Moles/Vol] 33 mmol/L High 21-32 [facility] Comment on above: Order Comment: Speci men Type: BLOOD SPECIMENOrdering Facility: [facility] Address: [address] [place] [address] Performed By: #### 2 4323-8, ####[facility] LABCLIA [id number] [place] [address] [place] [facility] Creatinine [Mass/Vol] 0.78 mg/dL Normal 0.51-0.95 [facility] Comment on above: Order Comment: Speci men Type: BLOOD SPECIMENOrdering Facility: [facility] Address: [address] [place] [address] Performed By: #### 2 4323-8, ####[facility] LABCLIA [id number] [facility] [place] [address] [facility] ESTIMATED GLOMERULAR FILTRATION RATE 110 mL/min/1.73m??? Normal >=60 [facility] Comment on above: Order Comment: Speci men Type: BLOOD SPECIMENOrdering Facility: [facility] Address: [address] [place] [address] Result Comment: Tierra mated Glomerular Filtration Rate [...] actual GFR. Performed By: #### 2 4323-8, ####[facility] [employer] LABCLIA [id number] [place] [address] [place] Glucose [Mass/Vol] 94 mg/dL Normal 70-99 [facility] Comment on above: Order Comment: Speci men Type: BLOOD SPECIMENOrdering Facility: [facility] Address: [address] [place] [address] Result Comment: The [place] Diabetes Association (ADA) provides guidance for cutoff [...] Standards of Medical Care in Diabetes 2016, French Diabetes Association. Diabetes Care. 2016.39(Suppl 1). Performed By: #### 2 4323-8, 35038-8 ####[facility] [employer] View App LABCLIA [id number] [place] [address] [place] Potassium [Moles/Vol] 3.6 mmol/L Normal 3.5-5.1 [facility] Comment on above: Order Comment: Speci men Type: BLOOD SPECIMENOrdering Facility: [facility] Address: [address] [place] [address] Result Comment: Spec imen slightly hemolyzed. Performed By: #### 2 4323-8, ####[facility] [employer] App LABCLIA [id number] [place] [address] [place] Protein [Mass/Vol] 7.7 g/dL Normal 6.4-8.2 [facility] Comment on above: Order Comment: Speci men Type: BLOOD SPECIMENOrdering Facility: [facility] Address: [address] [place] [address] Performed By: #### 2 4323-8, ####[facility]CLIA [id number] [facility] [place] [address] [place] Sodium [Moles/Vol] 135 mmol/L Low 136-145 [facility] Comment on above: Order Comment: Speci men Type: BLOOD SPECIMENOrdering Facility: [facility] Address: [address] [place], [place] [address] Performed By: #### 2 4323-8, ####[facility] LABCLIA [id number] [facility] [place] [address] [place] Urea nitrogen [Mass/Vol] 10 mg/dL Normal 7-18 [facility] Comment on above: Order Comment: Speci men Type: BLOOD SPECIMENOrdering Facility: [facility] Address: [address] [place] [address] Performed By: #### 2 4323-8, ####[facility]CLIA [id number] [facility] [place] [address] [facility] ED NOTEon 12-31-2021 ED NOTE HNO ID: [id number] Author: Amy Pena RN Service: Emergency Medicine Author Type: Registered Nurse Type: ED Notes Filed: 12/31/2021 7:03 PM Note Text: Patient resting in room. Patient updated on the plan of care. Bed in low locked position. Call light in reach. Monitoring maintained. Safety and comfort care maintained. Normal [facility] ED NOTE HNO ID: [id number] Author: Amy Pena RN Service: Emergency Medicine Author Type: Registered Nurse Type: ED Notes Filed: 12/31/2021 6:34 PM Note Text: Patient resting in room. Patient updated on the plan of care. Bed in low locked position. Call light in reach. Monitoring maintained. Safety and comfort care maintained. [facility] ED NOTE HNO ID: [id number] Author: Amy Pena RN Service: Emergency Medicine Author Type: Registered Nurse Type: ED Notes Filed: 12/31/2021 5:20 PM Note Text: Patient resting in room. Patient updated on the plan of care. Bed in low locked position. Call light in reach. Monitoring maintained. Safety and comfort care maintained. Normal [facility] ED NOTE HNO ID: [id number] Author: Amy Pena RN Service: Emergency Medicine Author Type: Registered Nurse Type: ED Notes Filed: 12/31/2021 4:55 PM Note Text: Patient updated on the plan of care. Patient medicated per order. Allergies reviewed. Patient verbalized understanding. Normal [facility] ED NOTE HNO ID: [id number] Author: Katarzyna Chau RN Service: Emergency Medicine Author Type: Registered Nurse Type: ED Notes Filed: 12/31/2021 4:09 PM Note Text: Rt lower quad pain began yesterday knockout man with nausea. Emesis x 1 today. Normal BM today. Pt denies dysuria or hematuria. Hx of kidney stone and UTI Normal [facility] ED PROV NOTEon 12-31-2021 ED PROV NOTE HNO ID: [id number] Author: Mary Pereira DO Service: Emergency Medicine [...] edema. Skin (more content not included)... Normal [facility] ED PROV NOTE HNO ID: [id number] Author: Jayde Yeager MD Service: Emergency Medicine [...] 4:28 PM Jayde Yeager MD 12/31/212020 Normal [facility] HCG Preg Ur Qlon 12-31-2021 HCG ( test) Ql (U) Negative Normal Negative [facility] Comment on above: Order Comment: Speci men Type: URINE SPECIMENOrdering Facility: [facility] Address: [address] [place] [address], [place] [address] Result Comment: This test is intended to aid in the early detection of . Very dilute urine samples, as indicated by a low specific gravity, may not contain medical service representative levels of hCG. This test [...] . Performed By: #### 2 106-3 ####[facility] LABCLIA [id number] [place] [address] [place] Magnesium SerPl-mCncon 12-31 Magnesium [Mass/Vol] 1.9 mg/dL Normal 1.6-2.3 [facility] Comment on above: Order Comment: Speci men Type: BLOOD SPECIMENOrdering Facility: [facility] Address: [place] [address] Performed By: #### 2 4323-8, 39511-6 ####[facility] LABCLIA [id number] [place] [address] [place] US DOPPLER COMPLETEon [...] to body habitus. 4. No free fluid. Power Shovel Engineer: PSCB Transcribe Date/Time: Dec 31 2021 6:24P Dictated by : KAITY HSAY MD This examination was interpreted and the report reviewed and electronically signed by: KAITY SHAY MD on Dec 31 2021 6:28PM EST [id number] N Normal [facility] US FEMALE PELVIS TRANSABD LT Don [...] to body habitus. 4. No free fluid. Power Shovel Engineer: CAROLA Transcribe Date/Time: Dec 31 2021 6:24P Dictated by : KAITY SHAY MD This examination was interpreted and the report reviewed and electronically signed by: KAITY SHAY MD on Dec 31 2021 6:28PM EST [id number] Normal [facility] US FEMALE PELVIS TRANSVAGon 12-31-2021 US [...] to body habitus. 4. No free fluid. Power Shovel Engineer: [facility] Transcribe Date/Time: Dec 31 2021 6:24P Dictated by : KAITY SHAY MD This examination was interpreted and the report reviewed and electronically signed by: KAITY SHAY MD on Dec 31 2021 6:28PM EST [id number] Normal [facility] Urinalysis complete panel (U )on 12-31-2021 Bacteria LM.HPF (Urine sed) [#/Area] Many Abnormal None Seen [facility] Comment on above: Order Comment: Speci men Type: URINE SPECIMENOrdering Facility: [facility] Address: [address] [place] [address] Performed By: #### 2 4356-8 ####[facility] [employer] View App LABCLIA [id number] [address] STATES OF [facility] Bilirubin Ql (U) Negative Normal Negative [facility] Comment on above: Order Comment: Speci men Type: URINE SPECIMENOrdering Facility: [facility] Address: [address] [address] Performed By: #### 2 4356-8 ####[facility] LABCLIA [id number] [place] [id number] [place] Clarity (Unsp spec) Clear Normal Clear [facility] Comment on above: Order Comment: Speci men Type: URINE SPECIMENOrdering Facility: [facility] Address: [address] [place] [address] Performed By: #### 2 4356-8 ####[facility] LABCLIA [id number] [facility] [place] [address] [place] Color (U) Yellow Normal Yellow [facility] Comment on above: Order Comment: Speci men Type: URINE SPECIMENOrdering Facility: [facility] Address: [address] [place] [address] Performed By: #### 2 4356-8 ####[facility] LABCLIA [id number] [facility] [place] [address] [facility] Epithelial cells LM.HPF (Urine sed) [#/Area] Many Normal [facility] Comment on above: Order Comment: Speci men Type: URINE SPECIMENOrdering Facility: [facility] Address: [address] [place] [address] Performed By: #### 2 4356-8 ####[facility] LABCLIA [id number] [facility] [place] [address] [facility] Glucose Test strip (U) [Mass/Vol] Negative Normal Negative [facility] Comment on above: Order Comment: Speci men Type: URINE SPECIMENOrdering Facility: [facility] Address: [address] [place] [address] Performed By: #### 2 4356-8 ####[facility] LABCLIA [id number] [facility] [place] [address] [place] Hemoglobin Ql (U) 2+ Abnormal Negative [facility] Comment on above: Order Comment: Speci men Type: URINE SPECIMENOrdering Facility: [facility] Address: [address] [place] [address] Performed By: #### 2 4356-8 ####[facility] LABCLIA [id number] [facility] [address] [place] Ketones Ql (U) Negative Normal Negative [facility] Comment on above: Order Comment: Speci men Type: URINE SPECIMENOrdering Facility: [facility] Address: [address] [place] [address] Performed By: #### 2 4356-8 ####[facility] LABCLIA [id number] [facility] [place] [address] [facility] [place] Leukocyte esterase Test strip Ql (U) Trace Abnormal Negative [facility] Comment on above: Order Comment: Speci men Type: URINE SPECIMENOrdering Facility: [facility] Address: [address] [place] [address] Performed By: #### 2 4356-8 ####[facility] LABCLIA [id number] [facility] [place] [address] [place] Nitrite Ql (U) Negative Normal Negative [facility] Comment on above: Order Comment: Speci men Type: URINE SPECIMENOrdering Facility: [facility] Address: [address] [place] [address] Performed By: #### 2 4356-8 ####[facility] LABCLIA [id number] [facility] [place] [address] [place] pH (U) 6.0 [pH] Normal 5.0-8.0 [facility] Comment on above: Order Comment: Speci men Type: URINE SPECIMENOrdering Facility: [facility] Address: [address] [place] [address] Performed By: #### 2 4356-8 ####[facility] LABCLIA [id number] [facility] [place] [address] [place] Protein (U) [Mass/Vol] Normal [facility] Comment on above: Order Comment: Speci men Type: URINE SPECIMENOrdering Facility: [facility] Address: [address] [place] [address] Result Comment: Visi ble blood causes falsely elevated results for analyte Protein. Due to this limitation, Protein will not be reported for patients whose urine contains visible blood. Performed By: #### 2 4356-8 ####[facility] LABCLIA [id number] [place] [address] [place] [facility] RBC LM.HPF (Urine sed) [#/Area] 11-25 /HPF Abnormal 0-3 /HPF [facility] Comment on above: Order Comment: Speci men Type: URINE SPECIMENOrdering Facility: [facility] Address: [address] [place] [address] Performed By: #### 2 4356-8 ####[facility] LABCLIA [id number] [place] [address] [facility] Specific gravity (U) [Rel density] >=1.030 High 1.005-1.030 [facility] Comment on above: Order Comment: Speci men Type: URINE SPECIMENOrdering Facility: [facility] Address: [address] [place] [address] Performed By: #### 2 4356-8 ####[facility] LABCLIA [id number] [address] Urobilinogen Ql (U) 0.2 EU/dL Normal 0.2-1.0 EU/dL [facility] Comment on above: Order Comment: Speci men Type: URINE SPECIMENOrdering Facility: [facility] Address: [address] [place] [address] Performed By: #### 2 4356-8 ####[facility] LABCLIA [id number] [place] [id number] [facility] WBC LM.HPF (Urine sed) [#/Area] 6-10 /HPF Abnormal 0-5 /HPF [facility] Comment on above: Order Comment: Speci men Type: URINE SPECIMENOrdering Facility: [facility] Address: [address] [place] [address] Performed By: #### 2 4356-8 ####[facility] LABCLIA [id number] [place] [address] [facility] COVID 19, [facility](RT COLLECT )on 03-17-2021 SARS-CoV-2 (COVID-19) RNA CHICHO+probe Ql (Unsp spec) Not detected Normal Not Detect [facility] Comment on above: Result Comment: Norm al Reference Range: Not Detected Method:(RT-PCR) real-time reverse transcriptase PCR Luminex Newshubby Instrument *The Food and Drug Administration (FDA) has issued an Emergency Use Authorization (EAU) for the New[place]ubby SARS-CoV-2 Assay for the rapid detection of [...] exposure. Performed By: #### L 3400.2405 #### [facility] [address] [place], [address] HAND RIGHT COMPLETEon 2020 HAND RIGHT COMPLETE EXAM: Right hand HISTORY: Pain after shutting a door on the hand on 01/27/2021. TECHNIQUE: 3 views of the right hand were obtained. FINDINGS: There is no evidence of fracture or dislocation. There are no suspicious bone lesions. Soft tissues are normal. IMPRESSION: No acute findings. Normal [facility] BASIC METABOLIC PANELon 01-0 Anion gap [Moles/Vol] 13 mmol/L Normal 10 - 20 [facility] Comment on above: Performed By: #### B MP #### [address] [address] Calcium [Mass/Vol] 9.5 mg/dL Normal 8.6 - 10.3 [facility] Comment on above: Performed By: #### B MP #### [address] [address] Chloride [Moles/Vol] 104 mmol/L Normal 98 - 107 [facility] Comment on above: Performed By: #### B MP #### [address] [address] Creatinine [Mass/Vol] 0.76 mg/dL Normal 0.50 - 1.05 [facility] Comment on above: Performed By: #### B MP #### [address] [address] GFR- AM. >60 Normal >60 [facility] Comment on above: Result Comment: CALC ULATIONS OF ESTIMATED GFR ARE PERFORMED USING THE MDRD STUDY EQUATION FOR THE IDMS-TRACEABLE CREATININE METHODS. CLIN CHEM 2007;53:766-72 Performed By: #### B MP #### [address] [address] GFR-NON AM. >60 Normal >60 [facility] Comment on above: Performed By: #### B MP #### [address] [address] Glucose [Mass/Vol] 88 mg/dL Normal 74 - 99 [facility] Comment on above: Performed By: #### B MP #### [address] [address] HCO3 (Bld) [Moles/Vol] 27 mmol/L Normal 21 - 32 [facility] Comment on above: Performed By: #### B MP #### [address] [address] Potassium [Moles/Vol] 3.8 mmol/L Normal 3.5 - 5.3 [facility] Comment on above: Performed By: #### B MP #### [address] [address] Sodium [Moles/Vol] 140 mmol/L Normal 136 - 145 [facility] Comment on above: Performed By: #### B MP #### [address] [address] Urea nitrogen [Mass/Vol] 11 mg/dL Normal 6 - 23 [facility] Comment on above: Performed By: #### B MP #### [address] [address] CBCon 10-17-2019 Erythrocyte distribution width (RBC) [Ratio] 12.5 % Normal 11.5 - 14.5 [facility] Comment on above: Performed By: #### C BC #### [address] [address] Hematocrit (Bld) [Volume fraction] 42.6 % Normal 36.0 - 46.0 [facility] Comment on above: Performed By: #### C BC #### [address] [address] Hemoglobin (Bld) [Mass/Vol] 14.5 g/dL Normal 12.0 - 16.0 [facility] Comment on above: Performed By: #### C BC #### [address] [address] MCHC (RBC) [Mass/Vol] 34.1 g/dL Normal 32.0 - 36.0 [facility] Comment on above: Performed By: #### C BC #### [address] [address] MCV (RBC) [Entitic vol] 91 fL Normal 80 - 100 [facility] Comment on above: Performed By: #### C BC #### [address] [address] Platelets (Bld) [#/Vol] 270 10*3/uL Normal 150 - 450 [facility] Comment on above: Performed By: #### C BC #### [address] [address] RBC (Bld) [#/Vol] 4.67 x10E12/L Normal 4.00 - 5.20 [facility] Comment on above: Performed By: #### C BC #### [address] [address] WBC (Bld) [#/Vol] 8.2 10*3/uL Normal 4.4 - 11.3 [facility] Comment on above: Performed By: #### C BC #### [address] [address] [address] HEAD WO CONTRASTon 2019 CT HEAD WO CONTRAST Patient Name: BIBI, LUZ STUDY: CT of the head without contrast INDICATION: dizzy/trauma COMPARISON: None ACCESSION NUMBER(S): [id number] ORDERING CLINICIAN: RASHMI FERRERA TECHNIQUE: A CT [...] Electronically signed by: LILI MONTEIRO MD Normal [facility] HCG,URINEon 10-17-2019 Beta HCG ( test) Ql (U) Negative Normal Negative [facility] Comment on above: Performed By: #### H U #### [place] [address] Provider Note - ED v2on Provider Note - ED v2 Provider Note - ED v2: Chart Review: ED NOTES ED NOTES: ====HPI==== 19 year old female comes to the ED with c/o a syncope episode SEWER. Patient states she believes she has a [...] made to minimize errors. Minor errors in electrolytic de scaler may be present. Please call if questions. [...] SIGNIFICANT EVENTS: Past Medical History Description:KIDNEY REFLUX CARD CLOTHIER: Is : no(1) Is : no(1) RESULTS/VITAL [...] at 10/17/2019 01:39 Appearance, Urine CLEAR Specific [place], Urine 1.021 pH, Urine 7.0 Protein, Urine [...] SIGNS: T PRBP SpO2O2(LPM) %FiO2 Method 17-Oct-2019 01:27:00-9131098/80 100 room air, no respiratory support 16-Oct-2019 22:16:[id number] /78 99 room air, no respiratory support 16-Oct-2019 22:00:[id number] /78 99 room air, no respiratory support [...] Referenced From Triage - ED 16-Oct-2019 22:16 [facility] Risk Screen - Adult Emergenc yon [...] instruction; written material Cultural Considerationsnone Developmental Considerationsnone Bahai Considerationsnone Other Learnerssignificant other Learning Assessment (Other Learner): Learning Assessment (Other Learner): Other learner availableyes... Learnersignificant other Factors Influencing Readiness to Learninterest in learning Factors that Impact Ability to Learnnone Devices/Methods Used to Communicatenone Learning Preferencesverbal instruction, written material Cultural Considerationsnone Developmental Considerationsnone Bahai Considerationsnone Pressure Injury/TB/Substance: Pressure Injury: Do you have a coughno Substance Use Current or Former Historynever: Cigarette/Tobacco, e-Cigarette/Vaping, Alcohol, Street Drugs Admission Risk Screen: Significant IndicatorsComplete CAGE: CAGE: Is this an injured patient at a Trauma Center ([facility]/[place]/[facility]/[place]): no Electronic Signatures: Lisette Junior (RN) (Signed 16-Oct-2019 22:23) Authored: Preferred Language, Advanced Directives, Family Violence Adult, Learning Assessment (Patient), Learning Assessment (Other Learner), Pressure Injury/TB/Substance, CAGE Last Updated: 16-Oct-2019 22:23 by Lisette Junior (RN) [facility] Triage - EDon 10-17-2019 Triage - [...] BMI (kg/m2): 29.674 Calculated BSA (m2) 1.75 [place] Coma Scale: Best Eye Response: (E4) spontaneous Best Motor Response: (M6) obeys commands Best Verbal Response: (V5) oriented Amador Score: 15 Cough lasting greater than 3 weeks: no Patient immunocompromised related to: N/A Travel outside of [facility]: no Allergies: yes Last menstrual period: [...] and spouse/significant other Language: Spoken Language Preferred: [place]i Reading Language Preferred: [place] [employer] Ch[employer] Director Requested: no court collections officer was requested MDRO: History of MDRO: no [...] 16-Oct-2019 22:22 by Lisette Junior (RN) Normal [facility] UA MICROSCOPICon 10-17-2019 BACTERIA 1+ /HPF Abnormal [facility] Comment on above: Performed By: #### U AMIC #### [place] [address] MUCUS 1+ /LPF Normal [facility] Comment on above: Performed By: #### U AMIC #### [place] [address] RBC (Bld) [#/Vol] 0-5 Normal 0-5 [facility] Comment on above: Performed By: #### U AMIC #### [place] [address] SQUAMOUS EPITH. CELLS 1+ /HPF Normal [facility] Comment on above: Performed By: #### U AMIC #### [place] [address] TRANSITIONAL EPITH.CELLS Negative Normal [facility] Comment on above: Performed By: #### U AMIC #### [place] [address] WBC (Bld) [#/Vol] 5-20 Abnormal 0-5 [facility] Comment on above: Performed By: #### U AMIC #### [place] [address] URINALYSISon 10-17-2019 Appearance (U) CLEAR Normal CLEAR [facility] Comment on above: Result Comment: This is a corrected result. Previous value was HAZY, verified at 10/17/2019 01:39 Performed By: #### U A #### [address] [address] Color (U) YELLOW Normal STRAW,YELLOW [facility] Comment on above: Result Comment: This is a corrected result. Previous value was Red, verified at 10/17/2019 01:39 Performed By: #### U A #### [address] [address] Bilirubin (U) [Mass/Vol] Negative Normal NEGATIVE [facility] Comment on above: Performed By: #### U A #### [place] [id number] BLOOD SMALL(1+) Abnormal NEGATIVE [facility] Comment on above: Performed By: #### U A #### [place] [id number] Glucose [Mass/Vol] Negative Normal NEGATIVE [facility] Comment on above: Performed By: #### U A #### [place] [address] Ketones Ql (U) Negative Normal NEGATIVE [facility] Comment on above: Performed By: #### U A #### [place] [address] Leukocyte esterase Test strip Ql (U) TRACE Abnormal NEGATIVE [facility] Comment on above: Performed By: #### U A #### [address] [address] Nitrite Ql (U) Negative Normal NEGATIVE [facility] Comment on above: Performed By: #### U A #### [place] [id number] pH (Bld) 7.0 Normal 5.0 - 8.0 [facility] Comment on above: Performed By: #### U A #### [place] [address] Protein (U) [Mass/Vol] Negative Normal NEGATIVE [facility] Comment on above: Performed By: #### U A #### [place] [address] Specific gravity (U) [Rel density] 1.021 Normal 1.005 - 1.035 [facility] Comment on above: Performed By: #### U A #### [address] [address] Urobilinogen Qn (U) <2.0 Normal 0.0 - 1.9 [facility] Comment on above: Performed By: #### U A #### [address] [address] URINE CULTURE,BACTERIALon URINE CULTURE,BACTERIAL TEST URINE CULTURE,BACTERIAL WAS CANCELLED, 10/19/2019 16:21 PATIENT DISCHARGED. PATIENT: LUZ MTZ LOCATION: [facility]#: [id number] : 89 AGE: SEX: F ORDERED BY: RASHMI FERRERA SOURCE: URINE COLLECTED: 10/17/19 02:24 ANTIBIOTICS AT JAMIE.: RECEIVED : SITE: Clean Catch/Voided R E S U L T S URINE CULTURE,BACTERIAL CANCELLED 10/19/19 16:21 Normal [facility] Comment on above: Performed By: #### [facility] #### [facility] [address] [place] [address] XR Foot 3+ Views Righton XR Foot 3+ Views Right Exam Date/Time: 04/28/2019 13:58 EDT Reason for Exam: Pain, Traumatic Report STUDY: XR Foot 3+ Views Right;; 04/28/2019 1:58 pm INDICATION: Pain, Traumatic. COMPARISON: None. ACCESSION NUMBER(S): [id number] ORDERING CLINICIAN: Alex Grubbs FINDINGS: No acute fracture or malalignment. No radiopaque foreign body. IMPRESSION: No acute osseous abnormality FINAL REPORT Dictated: 04/28/2019 2:30 pm Nancy Mills MD Signed (Electronic Signature): 04/28/2019 2:30 pm Signed by: Nancy Mills MD Technologist: JOHNSON Normal [facility] ABO/Rh Echoon 12-25-2018 ABO/Rh E Interp... Positive [facility] Comment on above: Performed By: #### 2 854620 #### [facility] [address] [place] [address] BhCG Quanton 12-25-2018 Beta hCG Qnt <0.6 Normal 0.0-2.9 [facility] Comment on above: Performed By: #### 2 090480 #### [facility] [address] [place] [address] UA Completeon 12-25-2018 Color (U) Yellow Normal Yellow [facility] Comment on above: Performed By: #### 2 554420 #### [facility] [address] [place] [address] Glucose (U) [Mass/Vol] Negative Normal Negative [facility] Comment on above: Performed By: #### 2 458844 #### [facility] [place] [address] Ketones Ql (U) Negative Normal Negative [facility] Comment on above: Performed By: #### 2 968648 #### [facility] [address] [place] [address] RBC (U) [#/Vol] /uL Abnormal 0-3 [facility] Comment on above: Performed By: #### 2 646621 #### [facility] [address] [place] [address] UA Blood 3+ Normal Negative [facility] Comment on above: Performed By: #### 2 752671 #### [facility] [address] [place] [address] UA Bacteria Trace Abnormal None [facility] Comment on above: Performed By: #### 2 109693 #### [facility] [address] [place] [address] UA Clarity Clear Normal Clear [facility] Comment on above: Performed By: #### 2 584634 #### [facility] [address] [place] [address] UA Leuk Est Negative Normal Negative [facility] Comment on above: Performed By: #### 2 693615 #### [facility] [address] [place] [address] UA Mucous Trace Abnormal Trace [facility] Comment on above: Performed By: #### 2 232286 #### [facility] [address] [place] [address] UA Nitrite Negative Normal Negative [facility] Comment on above: Performed By: #### 2 097887 #### [facility] [address] [place] [address] UA pH 8.0 Normal 4.6-8.0 [facility] Comment on above: Performed By: #### 2 237642 #### [facility] [address] [place] [address] UA Protein Negative Normal Negative [facility] Comment on above: Performed By: #### 2 118671 #### [facility] [address] [place] [address] UA Spec Grav 1.012 Normal 1.003-1.030 [facility] Comment on above: Performed By: #### 2 402899 #### [facility] [address] [place] [address] UA Squam Epithelial 0-5 Normal 0-5 [facility] Comment on above: Performed By: #### 2 021833 #### [facility] [address] [place] [address] UA Urobilinogen Negative Normal [facility] Comment on above: Result Comment: Due to a manufacturing issue, low positive urobilinogen results may be fasely positive. Correlate with urine bilirubin and additional clinical/laboratory findings to assess the risk of hemolytic anemia or liver disease. If clinically indicated, repeat testing with an alternate method is available by contacting the laboratory within 24 hours. Performed By: #### 2 260480 #### [facility] [address] [place] [address] UA WBC 5-10 Abnormal 0-5 [facility] Comment on above: Performed By: #### 2 584569 #### [facility] [address] [place] [address] Urobilinogen Qn (U) Negative Normal Negative [facility] Comment on above: Performed By: #### 2 283774 #### [facility] [address] [place] [address] C Urineon 09-05-2018 C Urine Final Report: Light growth of Normal skin den isolated Normal [facility] Comment on above: Performed By: #### 2 131691 #### [facility] [address] [place] [address] .Manual Abson 09-03-2018 Basophil Abs Man 0.0 10x3/ Normal 0.0-0.[address] [facility] Comment on above: Order Comment: Order Added by Discern Expert. Performed By: #### 3 [id number] #### [facility] [address] [place] [address] Eos Abs Man 0.0 10x3/ Normal 0.0-0.5 [facility] Comment on above: Order Comment: Order Added by Discern Expert. Performed By: #### 3 [id number] #### [facility] [address] [place] [address] Lymph Abs Man 0.5 10x3/ Low 1.2-3.4 [facility] Comment on above: Order Comment: Order Added by Discern Expert. Performed By: #### 3 [id number] #### [facility] [address] [place] [address] Lamb Abs Man 0.4 10x3/ Normal 0.0-0.7 [facility] Comment on above: Order Comment: Order Added by Discern Expert. Performed By: #### 3 [id number] #### [facility] [address] [place] [address] Segs Abs Man 7.8 10x3/ High 1.4-6.5 [facility] Comment on above: Order Comment: Order Added by Discern Expert. Performed By: #### 3 [id number] #### [facility] [address] [place] [address]22905 BMPon 09-03-2018 Anion gap [Moles/Vol] 14 mmol/L Normal 10-20 [facility] Comment on above: Performed By: #### 2 176603 #### [facility] [address] [place] [address]229[address] Calcium [Mass/Vol] 8.8 mg/dL Normal 8.5-10.7 [facility] Comment on above: Performed By: #### 2 776282 #### [facility] [place] [address] Chloride [Moles/Vol] 102 mmol/L Normal 98-107 [facility] Comment on above: Performed By: #### 2 056894 #### [facility] [address] [place] [address] CO2 [Moles/Vol] 24.0 mmol/L Normal 21.0-32.[address] [facility] Comment on above: Performed By: #### 2 681104 #### [facility] [address] [place] [address] Creatinine [Mass/Vol] 0.8 mg/dL Normal 0.5-1.1 [facility] Comment on above: Performed By: #### 2 385778 #### [facility] [address] [place] [address] Glucose [Mass/Vol] 100 mg/dL High 70-99 [facility] Comment on above: Performed By: #### 2 999687 #### [facility] [address] [place] [address] Potassium [Moles/Vol] 3.2 mmol/L Low 3.5-5.3 [facility] Comment on above: Performed By: #### 2 192479 #### [facility] [address] [place] [address] Sodium [Moles/Vol] 137 mmol/L Normal 136-145 [facility] Comment on above: Performed By: #### 2 387545 #### [facility] [address] [place] [address] Urea nitrogen [Mass/Vol] 11 mg/dL Normal 6-23 [facility] Comment on above: Performed By: #### 2 924094 #### [facility] [address] [place] [address] Urea nitrogen/Creatinine [Mass ratio] 13.8 ratio Normal 5.4-30.0 [facility] Comment on above: Performed By: #### 2 001233 #### [facility] [address] [place] [address] CBC w/ Auto Diffon 8 Erythrocyte distribution width (RBC) [Ratio] 13.0 % Normal 11.5-14.5 [facility] Comment on above: Performed By: #### 2 150403 #### [facility] [address] [place] [address] Hematocrit (Bld) [Volume fraction] 37.2 % Normal 36.0-48.0 [facility] Comment on above: Performed By: #### 2 355461 #### [facility] [address] [place] [address] Hemoglobin (Bld) [Mass/Vol] 12.7 g/dL Normal 12.0-16.0 [facility] Comment on above: Performed By: #### 2 816893 #### [facility] [address] [place] [address] MCH (RBC) [Entitic mass] 31.2 pg High 27.0-31.0 [facility] Comment on above: Performed By: #### 2 337429 #### [facility] [address] [place] [address] MCHC (RBC) [Mass/Vol] 34.2 g/dL Normal 33.0-37.0 [facility] Comment on above: Performed By: #### 2 694257 #### [facility] [address] [place] [address] MCV (RBC) [Entitic vol] 91.4 fL Normal 78.0-100.0 [facility] Comment on above: Performed By: #### 2 838532 #### [facility] [address] [place] [address] Platelet mean volume (Bld) [Entitic vol] 8.2 fL Normal 7.4-11.0 [facility] Comment on above: Performed By: #### 2 410555 #### [facility] [address] [place] [address] Platelets (Bld) [#/Vol] 201 E3/mcL Normal 130-400 [facility] Comment on above: Performed By: #### 2 609924 #### [facility] [address] [place] [address] RBC (Bld) [#/Vol] 4.07 E6/mcL Normal 3.90-5.40 [facility] Comment on above: Performed By: #### 2 927945 #### [facility] [address] [place] [address] WBC (Bld) [#/Vol] 8.9 E3/mcL Normal 3.6-11.0 [facility] Comment on above: Performed By: #### 2 699121 #### [facility] [address] [place] [address] CT Abdomen/Pelvis w/ Contras ton 09-03-2018 CT Abdomen/Pelvis w/ Contrast Exam Date/Time: 09/03/2018 21:35 EST Reason for Exam: Pain Report STUDY: CT Abdomen/Pelvis w/ Contrast; 09/03/2018 9:35 pm INDICATION: Pain. Pain COMPARISON: No comparison available ACCESSION NUMBER(S): [id number] ORDERING CLINICIAN: Miles Horn TECHNIQUE: CT of [...] Lobo MD Technologist: JOHN, Paul [facility] Hep Func Panelon 09-03-2018 Albumin [Mass/Vol] 4.3 g/dL Normal 3.4-5.0 [facility] Comment on above: Performed By: #### 2 228171 #### [facility] [place] [address] [place] [address] Albumin/Globulin [Mass ratio] 1.7 {ratio} Normal 1.1-1.9 [facility] Comment on above: Performed By: #### 2 731497 #### [facility] [address] [place] [address] Alk Phos 59 Int._Unit/L Normal 33-139 [facility] Comment on above: Performed By: #### 2 282025 #### [facility] [address] [place] [address] ALT [Catalytic activity/Vol] 18 Int._Unit/L Normal 7-45 [facility] Comment on above: Performed By: #### 2 542286 #### [facility] [address] [place] [address] AST [Catalytic activity/Vol] 18 Int._Unit/L Normal 9-39 [facility] Comment on above: Performed By: #### 2 154526 #### [facility] [facility] [address] [place] [address] Bili Direct 0.16 mg/dL Normal 0.00-0.30 [facility] Comment on above: Performed By: #### 2 [id number] #### K[facility] [address] [place] [address] Bili Indirect 0.7 Normal [facility] Comment on above: Performed By: #### 2 [id number] #### [facility] [address] [place] [address] Bili Total 0.9 mg/dL Normal 0.0-1.2 [facility] Comment on above: Performed By: #### 2 [id number] #### [facility] [address] [place] [address] Globulin (S) [Mass/Vol] 3.0 g/dL Normal 2.0-4.0 [facility] Comment on above: Performed By: #### 2 [id number] #### [place] [address] [place] [address] Protein [Mass/Vol] 6.8 g/dL Normal 6.4-8.2 [facility] Comment on above: Performed By: #### 2 [id number] #### KOBY MckeonChem [address] [place] [address] Influenza A&B Agon 8 Influenzae A Ag Negative Normal Negative [facility] Comment on above: Performed By: #### 2 [id number] #### KOBY Mckeon[address] [address] Influenzae B Ag Negative Normal Negative [facility] Comment on above: Performed By: #### 2 [id number] #### KOBY Mckeon[address] [address] Lactic Acidon 09-03-2018 Lactate [Moles/Vol] 0.8 mmol/L Normal 0.4-2.0 [facility] Comment on above: Performed By: #### 2 [id number] #### KOBYTiny Mckeon[address] [address] Lipase Levelon 09-03-2018 Lipase Lvl 12 Int._Unit/L Normal 9-82 [facility] Comment on above: Performed By: #### 2 [id number] #### KOBYTiny Mckeon[address] [address] Manual Diffon 09-03-2018 Band form neutrophils/100 WBC (Bld) 1 Normal 0-1 [facility] Comment on above: Order Comment: Order Added by Discern Expert. Performed By: #### 2 [id number] #### KOBY MckeonHemo [address] [place] [address] Basophil Man 0 % Normal 0-1 [facility] Comment on above: Order Comment: Order Added by Discern Expert. Performed By: #### 2 [id number] #### KOBY [facility] [address] [place] [address] Eosinophils/100 WBC (Bld) 0 % Normal 0-5 [facility] Comment on above: Order Comment: Order Added by Discern Expert. Performed By: #### 2 [id number] #### KOBY MckeonHemo [address] [place] [address] Lymphocytes/100 WBC (Bld) 6 % Low 14-48 [facility] Comment on above: Order Comment: Order Added by Discern Expert. Performed By: #### 2 [id number] #### KOBY MckeonHemo [address] [place] [address] Monocyte Man 5 % Normal 1-11 [facility] Comment on above: Order Comment: Order Added by Discern Expert. Performed By: #### 2 [id number] #### KOBY MckeonHemo [address] [place] [address] RBC morphology finding Nom (Bld) NORMAL Normal [facility] Comment on above: Order Comment: Order Added by Discern Expert. Performed By: #### 2 [id number] #### KOBY MckeonHemo [address] [place] [address] Segs Man 88 % High 37-75 [facility] Comment on above: Order Comment: Order Added by Discern Expert. Performed By: #### 2 [id number] #### KOBY MckeonHemo [address] [place] [address] TSHon 09-03-2018 TSH Qn 0.89 mcIU/mL Normal 0.30-5.60 [facility] Comment on above: Order Comment: With T4fr Reflex Performed By: #### 2 [id number] #### KOBY [facility]onChem [address] [place] [address] U BhCG Qlton 09-03-2018 HCG.beta subunit Qn Negative Normal Neg [facility] Comment on above: Performed By: #### 2 [id number] #### KOBY [facility]onChem [address] [place] [address] UA Completeon 09-03-2018 Color (U) Yellow Normal Yellow [facility] Comment on above: Order Comment: Strai ght Cath as needed Performed By: #### 2 [id number] #### [facility] [address] [place] [address] Glucose (U) [Mass/Vol] Negative Normal Negative [facility] Comment on above: Order Comment: Strai ght Cath as needed Performed By: #### 2 [id number] #### [facility] [address] [place] [address] Ketones Ql (U) 1+ Abnormal Negative [facility] Comment on above: Order Comment: Strai ght Cath as needed Performed By: #### 2 [id number] #### KOBY [facility] [address] [place] [address] RBC (U) [#/Vol] 10-20 Abnormal 0-3 [facility] Comment on above: Order Comment: Strai ght Cath as needed Performed By: #### 2 [id number] #### [facility] [address] [place] [address] UA Blood 1+ Abnormal Negative [facility] Comment on above: Order Comment: Strai ght Cath as needed Performed By: #### 2 [id number] #### KOBY [facility] [address] [place] [address] UA Ascorbic Acid 40 mg/dL High <=[address] [facility] Comment on above: Order Comment: Strai ght Cath as needed Performed By: #### 2 [id number] #### KOBY [facility] [address] [place] [address] UA Clarity SltCloudy Abnormal Clear [facility] Comment on above: Order Comment: Strai ght Cath as needed Performed By: #### 2 [id number] #### KOBY [facility] [address] [place] [address] UA Leuk Est 1+ Abnormal Negative [facility] Comment on above: Order Comment: Strai ght Cath as needed Performed By: #### 2 [id number] #### [facility] [address] [place] [address] UA Mucous Trace Abnormal Trace [facility] Comment on above: Order Comment: Strai ght Cath as needed Performed By: #### 2 [id number] #### K[facility] [address] [place] [address] UA Nitrite Negative Normal Negative [facility] Comment on above: Order Comment: Strai ght Cath as needed Performed By: #### 2 [id number] #### K[facility]Y [facility] [address] [place] [address] UA pH 7.0 Normal 4.6-8.0 [facility] Comment on above: Order Comment: Strai ght Cath as needed Performed By: #### 2 [id number] #### [facility] [address] [place] [address] UA Protein Negative Normal Negative [facility] Comment on above: Order Comment: Strai ght Cath as needed Performed By: #### 2 [id number] #### [facility] [address] [place] [address] UA Spec Grav 1.015 Normal 1.003-1.030 [facility] Comment on above: Order Comment: Strai ght Cath as needed Performed By: #### 2 [id number] #### [facility] [address] [place] [address] UA Squam Epithelial 0-5 Normal 0-5 [facility] Comment on above: Order Comment: Strai ght Cath as needed Performed By: #### 2 [id number] #### [facility] [address] [place] [address] UA Urobilinogen Negative Normal [facility] Comment on above: Order Comment: Strai ght [...] within 24 hours. Performed By: #### 2 [id number] #### [facility] [address] [place] [address] UA WBC 20-50 Abnormal 0-5 [facility] Comment on above: Order Comment: Strai ght Cath as needed Performed By: #### 2 [id number] #### [facility] [address] [place] [address] Urobilinogen Qn (U) Negative Normal Negative [facility] Comment on above: Order Comment: Strai ght Cath as needed Performed By: #### 2 [id number] #### [facility] [address] [place] [address] eGFRon 09-03-2018 GFR/1.73 sq M predicted among non-blacks MDRD (S/P/Bld) [Vol rate/Area] mL/min/{1.73_m2} Normal [facility] Comment on above: Order Comment: Order added by Discern Expert. Performed By: #### 1 [id number] #### [facility] [address] [place] [address] zzplt morphon 09-03-2018 Platelet morphology finding Nom (Bld) NORMAL Normal [facility] Comment on above: Performed By: #### 9 [id number] #### KOBY Rem[facility] [address] [place] [address] Platelets (Bld) [#/Vol] NORMAL Normal [facility] Comment on above: Performed By: #### 9 [id number] #### KOBY [facility] [address] [place] [address] Vital Signs Date Time Vital Sign Value Performing Clinician Facility 04-02-2023 16:00-0400 Body temperature 97.88 [degF] SUNIL GRAHAM MD [facility] 04-02-2023 16:00-0400 Diastolic Blood Pressure Non-Invasive 66 1 SUNIL GRAHAM MD [facility] 04-02-2023 16:00-0400 Heart rate 77 /min SUNIL GRAHAM MD [facility] 04-02-2023 16:00-0400 Respiratory rate 18 /min SUNIL GRAHAM MD [facility] 04-02-2023 16:00-0400 Systolic Blood Pressure Non-Invasive 110 1 SUNIL GRAHAM MD [facility] 04-02-2023 10:00-0400 Body temperature 97.7 [degF] SUNIL GRAHAM MD [facility] 04-02-2023 10:00-0400 Diastolic Blood Pressure Non-Invasive 48 1 SUNIL GRAHAM MD [facility] 04-02-2023 10:00-0400 Heart rate 81 /min SUNIL GRAHAM MD [facility] 04-02-2023 10:00-0400 Systolic Blood Pressure Non-Invasive 97 1 SUNIL GRAHAM MD [facility] 04-02-2023 00:31-0400 Body temperature 97.88 [degF] SUNIL GRAHAM MD [facility] 04-02-2023 00:31-0400 Diastolic Blood Pressure Non-Invasive 59 1 SUNIL GRAHAM MD [facility] 04-02-2023 00:31-0400 Heart rate 68 /min SUNIL GRAHAM MD [facility] 04-02-2023 00:31-0400 Reason For Taking VItal Signs SUNIL GRAHAM MD [facility] 04-02-2023 00:31-0400 Respiratory rate 16 /min SUNIL GRAHAM MD [facility] 04-02-2023 00:31-0400 Systolic Blood Pressure Non-Invasive 113 1 SUNIL GRAHAM MD [facility] 04-01-2023 16:20-0400 Reason For Taking VItal Signs SUNIL GRAHAM MD [facility] 04-01-2023 08:41-0400 Reason For Taking VItal Signs SUNIL GRAHAM MD [facility] 03-31-2023 23:30-0400 Body temperature 97.88 [degF] SUNIL GRAHAM MD [facility] 03-31-2023 15:25-0400 Body temperature 98.42 [degF] SUNIL GRAHAM MD [facility] 03-31-2023 08:36-0400 Body temperature 98.24 [degF] SUNIL GRAHAM MD [facility] 03-30-2023 07:49-0400 Body height 155 cm SUNIL GRAHAM MD [facility] 03-30-2023 07:49-0400 Body weight 78 kg SUNIL GRAHAM MD [facility] 03-30-2023 07:49-0400 Body weight 32.47 kg/m2 SUNIL GRAHAM MD [facility] 03-07-2023 20:03-0400 Body temperature 98.6 [degF] MARTINEZ NÚÑEZ MD [facility] 03-07-2023 20:03-0400 Diastolic Blood Pressure Non-Invasive 69 1 MARTINEZ NÚÑEZ MD [facility] 03-07-2023 20:03-0400 Heart rate 91 /min MARTINEZ NÚÑEZ MD [facility] 03-07-2023 20:03-0400 Respiratory rate 18 /min MARTINEZ NÚÑEZ MD [facility] 03-07-2023 20:03-0400 Systolic Blood Pressure Non-Invasive 115 1 MARTINEZ NÚÑEZ MD [facility] 03-07-2023 20:02-0400 Body height 155 cm MARTINEZ NÚÑEZ MD [facility] 03-07-2023 20:02-0400 Body weight 79.5 kg MARTINEZ NÚÑEZ MD [facility] 03-07-2023 20:02-0400 Body weight 33.09 kg/m2 MARTINEZ NÚÑEZ MD [facility] 03-06-2023 17:39-0400 Body temperature 98.06 [degF] MARTINEZ NÚÑEZ MD [facility] 03-06-2023 17:39-0400 Diastolic Blood Pressure Non-Invasive 76 1 MARTINEZ NÚÑEZ MD [facility] 03-06-2023 17:39-0400 Heart rate 125 /min MARTINEZ NÚÑEZ MD [facility] 03-06-2023 17:39-0400 Systolic Blood Pressure Non-Invasive 113 1 MARTINEZ NÚÑEZ MD [facility] 03-06-2023 17:37-0400 Body height 155 cm MARTINEZ NÚÑEZ MD [facility] 03-06-2023 17:37-0400 Body weight 79.5 kg MARTINEZ NÚÑEZ MD [facility] 03-06-2023 17:37-0400 Body weight 33.09 kg/m2 MARTINEZ NÚÑEZ MD [facility] 01-26-2023 03:20-0400 Diastolic Blood Pressure Non-Invasive 67 1 MARTINEZ NÚÑEZ MD [facility] 01-26-2023 03:20-0400 Heart rate 107 /min MARTINEZ NÚÑEZ MD [facility] 01-26-2023 03:20-0400 Systolic Blood Pressure Non-Invasive 113 1 MARTINEZ NÚÑEZ MD [facility] 01-26-2023 02:34-0400 Diastolic Blood Pressure Non-Invasive 71 1 MARTINEZ NÚÑEZ MD [facility] 01-26-2023 02:34-0400 Heart rate 95 /min MARTINEZ NÚÑEZ MD [facility] 01-26-2023 02:34-0400 Systolic Blood Pressure Non-Invasive 116 1 MARTINEZ NÚÑEZ MD [facility] 01-26-2023 02:15-0400 Body temperature 98.24 [degF] MARTINEZ NÚÑEZ MD [facility] 01-26-2023 01:46-0400 Diastolic Blood Pressure Non-Invasive 42 1 MARTINEZ NÚÑEZ MD [facility] 01-26-2023 01:46-0400 Heart rate 101 /min MARTINEZ NÚÑEZ MD [facility] 01-26-2023 01:46-0400 Systolic Blood Pressure Non-Invasive 114 1 MARTINEZ NÚÑEZ MD [facility] 01-26-2023 01:16-0400 Respiratory rate 16 /min MARTINEZ NÚÑEZ MD [facility] 01-26-2023 00:59-0400 Body height 155 cm MARTINEZ NÚÑEZ MD [facility] 01-26-2023 00:59-0400 Body weight 77.3 kg MARTINEZ NÚÑEZ MD [facility] 01-26-2023 00:59-0400 Body weight 32.17 kg/m2 MARTINEZ NÚÑEZ MD [facility] 11-18-2022 12:08-0500 Body temperature 98.24 [degF] SUNIL GRAHAM MD [facility] 11-18-2022 12:08-0500 Diastolic Blood Pressure Non-Invasive 82 1 SUNIL GRAHAM MD [facility] 11-18-2022 12:08-0500 Heart rate 108 /min SUNIL GRAHAM MD [facility] 11-18-2022 12:08-0500 Respiratory rate 18 /min SUNIL GRAHAM MD [facility] 11-18-2022 12:08-0500 Systolic Blood Pressure Non-Invasive 103 1 SUNIL GRAHAM MD [facility] 10-14-2022 11:01-0500 Body weight 80.06 kg Gretel Quintana MD Work Phone: [facility] 10-14-2022 11:01-0500 Diastolic blood pressure 56 mm[Hg] Gretel Quintana MD Work Phone: [facility] 10-14-2022 11:01-0500 Respiratory rate 18 /min Gretel Quintana MD Work Phone: [facility] 10-14-2022 11:01-0500 Systolic blood pressure 110 mm[Hg] Gretel Quintana MD Work Phone: [facility] 08-19-2022 13:06-0500 Body weight 85.5 kg Braulio Hollingsworth MD Work Phone: [facility] 08-19-2022 13:06-0500 Diastolic blood pressure 82 mm[Hg] Braulio Hollingsworth MD Work Phone: [facility] 08-19-2022 13:06-0500 Systolic blood pressure 102 mm[Hg] Braulio Hollingsworth MD Work Phone: [facility] 08-09-2022 18:09-0400 Diastolic blood pressure 74 mm[Hg] No Primary Care Physician [facility] Work Phone: 08-09-2022 18:09-0400 Heart rate 107 /min No Primary Care Physician [facility] Work Phone: 08-09-2022 18:09-0400 Respiratory rate 18 /min No Primary Care Physician [facility] Work Phone: 08-09-2022 18:09-0400 SaO2% (BldA) [Mass fraction] 94 % No Primary Care Physician [facility] Work Phone: 08-09-2022 18:09-0400 Systolic blood pressure 120 mm[Hg] No Primary Care Physician [facility] Work Phone: 08-09-2022 13:51-0400 Body height 154.94 cm No Primary Care Physician [facility] Work Phone: 08-09-2022 13:51-0400 Body mass index (BMI) [Ratio] 35.9 kg/m2 No Primary Care Physician [facility] Work Phone: 08-09-2022 13:51-0400 Body temperature 98.2 [degF] No Primary Care Physician [facility] Work Phone: 08-09-2022 13:51-0400 Body weight 86.4 kg No Primary Care Physician [facility] Work Phone: 08-04-2022 13:54-0400 Diastolic blood pressure 76 mm[Hg] Melania Mitchell MD Work Phone: [facility] 08-04-2022 13:54-0400 Heart rate 100 /min Melania Mitchell MD Work Phone: [facility] 08-04-2022 13:54-0400 Respiratory rate 16 /min Melania Mitchell MD Work Phone: [facility] 08-04-2022 13:54-0400 SaO2% (BldA) [Mass fraction] 98 % Melania Mitchell MD Work Phone: [facility] 08-04-2022 13:54-0400 Systolic blood pressure 102 mm[Hg] Melania Mitchell MD Work Phone: [facility] 08-04-2022 10:48-0400 Body height 154.9 cm Melania Mitchell MD Work Phone: [facility] 08-04-2022 10:48-0400 Body mass index (BMI) [Ratio] 30.23 kg/m2 Melania Mitchell MD Work Phone: [facility] 08-04-2022 10:48-0400 Body temperature 98.2 [degF] Melania Mitchell MD Work Phone: [facility] 08-04-2022 10:48-0400 Body weight 72.58 kg Melania Mitchell MD Work Phone: [facility] 07-08-2022 15:30-0400 Body temperature 98.2 [degF] No Primary Care Physician [facility] Work Phone: 07-08-2022 15:30-0400 Diastolic blood pressure 78 mm[Hg] No Primary Care Physician [facility] Work Phone: 07-08-2022 15:30-0400 Heart rate 89 /min No Primary Care Physician [facility] Work Phone: 07-08-2022 15:30-0400 Respiratory rate 14 /min No Primary Care Physician [facility] Work Phone: 07-08-2022 15:30-0400 SaO2% (BldA) [Mass fraction] 98 % No Primary Care Physician [facility] Work Phone: 07-08-2022 15:30-0400 Systolic blood pressure 124 mm[Hg] No Primary Care Physician [facility] Work Phone: 06-30-2022 00:36-0400 Diastolic blood pressure 76 mm[Hg] No Primary Care Physician [facility] Work Phone: 06-30-2022 00:36-0400 Heart rate 79 /min No Primary Care Physician [facility] Work Phone: 06-30-2022 00:36-0400 Respiratory rate 16 /min No Primary Care Physician [facility] Work Phone: 06-30-2022 00:36-0400 SaO2% (BldA) [Mass fraction] 96 % No Primary Care Physician [facility] Work Phone: 06-30-2022 00:36-0400 Systolic blood pressure 113 mm[Hg] No Primary Care Physician [facility] Work Phone: 06-29-2022 23:48-0400 Body temperature 98.9 [degF] No Primary Care Physician [facility] Work Phone: 06-29-2022 18:00-0400 Body mass index (BMI) [Ratio] 33 kg/m2 No Primary Care Physician [facility] Work Phone: 06-29-2022 18:00-0400 Body weight 79.37 kg No Primary Care Physician [facility] Work Phone: Encounters Encounter Date Encounter Type Care Provider Facility Start: 08-01-2025 ambulatory No Primary Care Physici an Facility:[facility] Start: 07-09-2025 End: 07-09-2025 ambulatory No Primary Care Physician Facility:[facility] Start: 07-09-2025 End: 07-09-2025 ambulatory No Primary Care Physician Facility:[facility] Start: 07-03-2025 End: 07-03-2025 ambulatory No Primary Care Physician Facility:[facility] Start: 07-03-2025 End: 07-03-2025 ambulatory No Primary Care Physician Facility:[facility] Start: 06-26-2025 End: 06-26-2025 ambulatory RAMA Dinesh [facility] Start: 06-20-2025 End: 06-20-2025 ambulatory [facility] Start: 06-06-2025 End: 06-06-2025 ambulatory Rama Stuart Facility:[facility] Start: 05-30-2025 End: 05-30-2025 ambulatory No Primary Care Physician Facility:[facility] Start: 05-30-2025 End: 05-30-2025 ambulatory Raam Stuart Facility:[facility] Start: 05-14-2025 End: 05-14-2025 ambulatory Rama Stuart Facility:[facility] Start: 05-14-2025 End: 05-14-2025 ambulatory No Primary Care Physician Facility:[facility] Start: 05-07-2025 End: 05-07-2025 ambulatory No Primary Care Physician Facility:[facility] Start: 05-07-2025 End: 05-07-2025 ambulatory No Primary Care Physician Facility:[facility] Start: 04-09-2025 End: 04-09-2025 ambulatory No Primary Care Physician Facility:[facility] Start: 04-09-2025 End: 04-09-2025 ambulatory Remedios Jose [employer] Facility:[facility] Start: 03-15-2025 End: 03-15-2025 ambulatory Remedios Jose [employer] Facility:[facility] Start: 03-13-2025 End: 03-13-2025 ambulatory No Primary Care Physician Facility:[facility] Start: 03-13-2025 End: 03-13-2025 ambulatory Remedios Bancroft [employer] Facility:[facility] Start: 01-02-2025 End: 01-02-2025 Emergency department patient visit Mendez Gardner Facility:[facility] Start: 08-03-2024 End: 08-18-2024 ambulatory KIRSTEN MAST TEAM GUIDE-BARREL MARKER Facility:[facility] Start: 08-03-2024 End: 08-18-2024 Physical therapy management KIRSTEN MAST TEAM GUIDE-BARREL MARKER [facility] Start: 02-18-2024 End: 02-19-2024 ambulatory KIRSTEN MAST TEAM GUIDE-BARREL MARKER Facility:[facility] Start: 02-18-2024 End: 02-18-2024 Patient encounter procedure KIRSTEN MAST TEAM GUIDE-BARREL MARKER [facility] Start: 10-15-2023 End: 10-16-2023 ambulatory OSMAN TORRES PMHNP-BC Facility:[facility] Start: 10-15-2023 End: 10-15-2023 Patient encounter procedure OSMAN TORRES PMHNP-BC [facility] Start: 03-30-2023 End: 04-02-2023 Evaluation and management of inpatient MARTINEZ NÚÑEZ MD Facility:[facility] Start: 03-30-2023 End: 04-02-2023 Evaluation and management of inpatient SUNIL GRAHAM MD [facility] Start: 03-18-2023 End: 03-18-2023 ambulatory MARTINEZ NÚÑEZ MD Facility:[facility] Start: 03-15-2023 End: 03-16-2023 ambulatory SUNIL GRAHAM MD Facility:[facility] Start: 03-15-2023 End: 03-15-2023 Patient encounter procedure SUNIL GRAHAM MD [facility] Start: 03-09-2023 End: 03-14-2023 ambulatory LONG DICKERSON MD Facility:[facility] Start: 03-09-2023 End: 03-10-2023 ambulatory LONG DICKERSON MD Facility:[facility] Start: 03-09-2023 End: 03-13-2023 Outreach Lab LONG DICKERSON MD [facility] Start: 03-09-2023 End: 03-09-2023 Patient encounter procedure LONG DICKERSON MD [facility] Start: 03-07-2023 End: 03-07-2023 ambulatory MARTINEZ NÚÑEZ MD Facility:[facility] Start: 03-07-2023 End: 03-07-2023 SAME DAY STAY MARTINEZ NÚÑEZ MD [facility] Start: 03-06-2023 End: 03-06-2023 ambulatory MARTINEZ NÚÑEZ MD Facility:[facility] Start: 03-06-2023 End: 03-06-2023 SAME DAY STAY MARTINEZ NÚÑEZ MD [facility] Start: 01-26-2023 End: 01-26-2023 SAME DAY STAY MARTINEZ NÚÑEZ MD [facility] Start: 01-25-2023 End: 01-25-2023 Patient encounter procedure SUNIL GRAHAM MD [facility] Start: 01-19-2023 End: 01-19-2023 Patient encounter procedure SUNIL GRAHAM MD [facility] Start: 01-05-2023 End: 01-05-2023 Patient encounter procedure SUNIL GRAHAM MD [facility] Start: 12-03-2022 Refill Tad kirk DO Work Phone: [facility] Comment on above: Med Change Request Start: 11-18-2022 End: 11-18-2022 SAME DAY STAY SUNIL GRAHAM MD [facility] Start: 11-13-2022 End: 11-13-2022 Patient encounter procedure 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 TEAM GUIDE-BARREL MARKER [facility] Start: 10-29-2022 End: 10-29-2022 ambulatory CHEKO MCCLELLAND Facility:[facility] Start: 10-14-2022 End: 10-14-2022 ambulatory GRETLE QUINTANA Facility:[facility] Start: 10-14-2022 End: 10-14-2022 Patient encounter procedure Gretel Quintana MD Work Phone: Obstetrics/Gynecolog y Comment on above: Encounter for superv ision of normal first in second trimester (Primary Dx); Need for influenza vaccination; 15 weeks gestation of Start: 09-21-2022 End: 09-21-2022 ambulatory FLORENCE HEWITT Facility:[facility] Start: 09-17-2022 End: 09-17-2022 ambulatory BRAULIO HOLLINGSWORTH Facility:[facility] Start: 08-21-2022 ambulatory Braulio Hollingsworth MD Work Phone: Obstetrics/Gynecolog y Comment on above: Luz oliveira Start: 08-19-2022 End: 08-19-2022 ambulatory BRAULIO HOLLINGSWORTH Facility:[facility] Start: 08-19-2022 End: 08-19-2022 Patient encounter procedure Braulio Hollingsworth MD Work Phone: Obstetrics/Gynecolog y Comment on above: Encounter for superv ision of normal first in first trimester (Primary Dx) with uncer tain dates in first trimester (Primary Dx) Start: 08-14-2022 End: 08-14-2022 ambulatory TANESHA FRANKLINLex Facility:[facility] Start: 08-10-2022 Telephone encounter Braulio connolly MD Work Phone: Obstetrics/Gynecolog y Comment on above: Patient Update Start: 08-09-2022 End: 08-09-2022 Emergency department patient visit No Primary Care Physician [facility] Start: 08-04-2022 End: 08-04-2022 Emergency department patient visit [facility] Start: 08-04-2022 End: 08-04-2022 Emergency department patient visit Melania Mitchell MD Work Phone: [facility] Comment on above: Threatened miscarria ge in early (Primary Dx) Start: 07-20-2022 End: 07-20-2022 ambulatory No Primary Care Physician [facility] Work Phone: Start: 07-20-2022 End: 07-20-2022 Discharged Recurring No Primary Care Physician [facility] Therapy Start: 07-20-2022 Registered Recurring No Primary Care Physician [facility] Start: 07-09-2022 Telephone encounter Ledy wang MD Work Phone: [facility] Comment on above: Missed Appointment ( #1 No Show, #1 Letter) Start: 07-08-2022 End: 07-08-2022 Patient encounter procedure No Primary Care Physician [facility] Start: 06-29-2022 End: 06-30-2022 Emergency department patient visit No Primary Care Physician [facility] Start: 05-31-2022 End: 05-31-2022 Emergency department patient visit HIWOT HUDSON Facility:[facility] Start: 12-31-2021 End: 12-31-2021 Emergency department patient visit JAYDE YEAGER Facility:[facility] Start: 01-27-2021 End: 01-27-2021 ambulatory Alex [id number] Lynsey [phone] Facility:[facility] Start: 12-25-2018 Patient encounter procedure Facility:[id number] Start: [...] Speci men Type: BLOOD SPECIMEN Ordering Facility: [facility] Address: [address] [place], [place] [address] Performed By: #### T SPN #### [facility] [id number] [address] [place] [address] [place] Start: 08-19-2022 Antibody [...] Speci men Type: BLOOD SPECIMEN Ordering Facility: [facility] Address: [place] [address] Performed By: #### T SPN #### [facility] CLIA [id number] [address] [place] [address] [place] Start: 08-09-2022 Transvaginal [...] of wisdom tooth (body structure) 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 TEAM GUIDE-BARREL MARKER Plan of Treatment Date Care Activity Detail Author Start: 08-19-2025 PAP TESTING PAP TESTING [facility] Start: 05-14-2024 PAP TESTING PAP TESTING [facility] Start: 08-19-2023 CHLAMYDIA SCREENING (18-24) CHLAMYDIA SCREENING (18-24) [facility] Start: 08-19-2023 GC (GONORRHEA) SCREE SAADIA (18-24) GC (GONORRHEA) SCREENING (18-24) [facility] Start: 10-14-2022 End: 10-14-2023 OBSTETRIC ULTRASOUND WHI OBSTETRIC ULTRASOUND WHI Anc Imaging Routine Encounter for supervision of normal first in second trimester Expected: 10/14/2022, Expires: 10/14/2023 [facility] Work Phone: Comment on above: Expected: 10/14/2022 , Expires: 10/14/2023 Start: 10-11-2022 DEPRESSION ASSESSMENT DEPRESSION ASS ESSMENT [facility] Start: 08-19-2022 End: 10-19-2022 Hepatitis B virus surface Ab [Presence] in Serum by Immunoassay [facility] Work Phone: Comment on above: Expected: 08/19/2022 , Expires: 10/19/2022 Start: 08-19-2022 End: 10-19-2022 Hepatitis C virus Ab [Presence] in Serum [facility] Work Phone: Comment on above: Expected: 08/19/2022 , Expires: 10/19/2022 Start: 08-19-2022 End: 10-19-2022 HIV 1+2 Ab [Presence] in Serum or Plasma by Immunoassay [facility] Work Phone: Comment on above: Expected: 08/19/2022 , Expires: 10/19/2022 Start: 08-19-2022 End: 08-19-2023 NUCHAL TRANSLUCENCY WHI NUCHAL TRANSLUCENCY WHI Anc Imaging Routine Encounter for supervision of normal first in first trimester Expected: 08/19/2022, Expires: 08/19/2023 [facility] Work Phone: Comment on above: Expected: 08/19/2022 , Expires: 08/19/2023 Start: 08-19-2022 End: 10-19-2022 RUBELLA IGG AB [facility] Work Phone: Comment on above: Expected: 08/19/2022 , Expires: 10/19/2022 Start: 08-19-2022 End: 10-19-2022 SYPHILIS TOTAL W/REFLEX [facility] Work Phone: Comment on above: Expected: 08/19/2022 , Expires: 10/19/2022 Start: 07-08-2022 Patient referral [facility] Work Phone: Start: 06-11-2022 Influenza vaccination INFLUENZA (#1) [facility] Start: 05-14-2022 CHLAMYDIA SCREENING (18-24) CHLAMYDIA SCREENING (18-24) [facility] Start: 05-14-2022 GC (GONORRHEA) SCRELily SAADIA (18-24) GC (GONORRHEA) SCREENING (18-24) [facility] Start: 05-11-2022 Influenza vaccination Flu vaccine (# 1) [facility] Start: 05-07-2022 Urine microalbumin profile DTAP,TDAP,TD (7 - Td or Tdap) [facility] Start: 10-11-2021 DEPRESSION ASSESSMENT DEPRESSION ASS ESSMENT [facility] Start: 05-17-2021 COVID-19 VACCINE (3 - Booster for Pfizer series) COVID-19 VACCINE (3 - Booster for Pfizer series) [facility] Start: 2020 Screening for malign ant neoplasm of cervix Pap smear [facility] Start: 2018 DTaP/Tdap/Td vaccine (1 - Tdap) DTaP/Tdap/Td vaccine (1 - Tdap) [facility] Start: 2017 HEPATITIS C SCREENING HEPATITIS C SC REENING [facility] Start: 2017 Hepatitis C screening Hepatitis C sc reen [facility] Start: 2017 HIV SCREENING HIV SCREENING [facility] Start: 2015 Screening for Chlamy jarod trachomatis Chlamydia/GC screen [facility] Start: 2014 HIV screening HIV screen [facility] Start: 2013 PEDS TO ADULT TRANSI TION ANNUAL ASSESSMENT PEDS TO ADULT TRANSITION ANNUAL ASSESSMENT [facility] Start: 2011 Depression Screen Depression Screen [facility] Start: 2011 PEDS TO ADULT TRANSI TION INITIAL DISCUSSION PEDS TO ADULT TRANSITION INITIAL DISCUSSION [facility] Start: 2010 HPV vaccine (1 - 2-d ose series) HPV vaccine (1 - 2-dose series) [facility] Start: 2009 MENINGOCOCCAL B: Consider based on risk (1 of 2 - Risk Bexsero 2-dose series) MENINGOCOCCAL B: Consider based on risk (1 of 2 - Risk Bexsero 2-dose series) [facility] Start: 2000 Varicella vaccine (1 of 2 - 2-dose childhood series) Varicella vaccine (1 of 2 - 2-dose childhood series) [facility] Start: 04-09-2000 COVID-19 VACCINE (#1) COVID-19 VACCI NE (#1) [facility] Bacteria identified in Urine by Culture URINE CULTURE Microbiology Routine Encounter for supervision of normal first in first trimester 08/19/2022 2:08 PM [facility] Work Phone: Chlamydia trachomatis+Neisseria gonorrhoeae DNA [Presence] in Unspecified specimen by CHICHO with probe detection GC/CHLAMYDIA DNA DET Lab Routine Encounter for supervision of normal first in first trimester 08/19/2022 2:13 PM [facility] Work Phone: PAP FLUID CERVICAL SCREENING PAP FLUID CERVICAL SCREENING Lab Routine Encounter for supervision of normal first in first trimester Ordered: 08/19/2022 [facility] Work Phone: Comment on above: Ordered: 08/19/2022 Patient Education [facility] Work Phone: Patient referral [facility] Work Phone: [facility] Immunizations Immunization Date Immunization Notes Care Provider Fa [facility] 08-24-2023 tetanus toxoid, redu ibis diphtheria toxoid, and acellular pertussis vaccine, adsorbed KIRSTEN MAST TEAM GUIDE-BARREL MARKER [facility] 02-01-2023 tetanus toxoid, redu ibis diphtheria toxoid, and acellular pertussis vaccine, adsorbed; Translations: [Boostrix (Tdap)] MARTINEZ NÚÑEZ MD [facility] Comment on above: Result Comment: [facility]- [id number] 10-14-2022 influenza virus vacc ine, unspecified formulation KIRSTEN MAST TEAM GUIDE-BARREL MARKER [facility] 10-14-2022 influenza, injectabl e, quadrivalent, contains preservative Gretel Quintana MD Work Phone: [facility] 03-22-2021 SARS-CoV-2 mRNA (tozinameran) vaccine KIRSTEN [facility] TEAM GUIDE-[facility] 03-01-2021 SARS-CoV-2 mRNA (tozinameran) vaccine KIRSTEN [facility] TEAM GUIDE-[facility] 09-20-2020 influenza virus vacc ine, unspecified formulation [facility] 09-08-2019 influenza virus vacc ine, unspecified formulation [facility] 03-02-2018 varicella virus vaccine [facility] TEAM GUIDE-[facility] 07-26-2017 influenza virus vacc ine, unspecified formulation [facility] 05-11-2017 meningococcal polysaccharide (groups A, C, Y and W-135) diphtheria toxoid conjugate vaccine (MCV4P) [facility] 02-24-2016 meningococcal polysaccharide (groups A, C, Y and W-135) diphtheria toxoid conjugate vaccine (MCV4P) Ledy Vaughn MD Work Phone: [facility] 07-05-2014 influenza virus vacc ine, unspecified formulation [facility] TEAM GUIDE-[facility] 07-05-2014 influenza, injectabl e, quadrivalent, preservative free Ledy Vaughn MD Work Phone: [facility] Work Phone: 02-20-2014 human papilloma viru s vaccine, quadrivalent Ledy Vaughn MD Work Phone: [facility] 02-20-2014 Human Papillomavirus Quadval KIRSTEN MAST TEAM GUIDE-BARREL MARKER [facility] [place] 05-18-2013 human papilloma viru s vaccine, quadrivalent Ledy Vaughn MD Work Phone: [facility] Work Phone: 05-07-2012 human papilloma viru s vaccine, quadrivalent Ledy Vaughn MD Work Phone: [facility] 05-07-2012 Meningococcal, MCV4, unspecified conjugate formulation(groups A, C, Y and W-135) Ledy Vaughn MD Work Phone: [facility] 05-07-2012 tetanus toxoid, redu ibis diphtheria toxoid, and acellular pertussis vaccine, adsorbed Ledy Vaughn MD Work Phone: [facility] 05-07-2012 varicella virus vaccine Chayo Harris MD Work Phone: [facility] 01-09-2005 diphtheria, tetanus toxoids and acellular pertussis vaccine Ledy Vaughn MD Work Phone: [facility] 01-09-2005 measles, mumps and rubella virus vaccine eLdy Vaughn MD Work Phone: [facility] 01-09-2005 poliovirus vaccine, inactivated Ledy Vaughn MD Work Phone: [facility] 04-26-2001 pneumococcal conjuga te vaccine, 7 valent Ledy Vaughn MD Work Phone: [facility] 02-17-2001 diphtheria, tetanus toxoids and acellular pertussis vaccine Ledy Vaughn MD Work Phone: [facility] Work Phone: 02-17-2001 haemophilus influenz ae type b vaccine, HbOC conjugate Ledy Vaughn MD Work Phone: [facility] Work Phone: 02-17-2001 pneumococcal conjuga te vaccine, 7 valent Ledy Vaughn MD Work Phone: [facility] 11-03-2000 measles, mumps and rubella virus vaccine Ledy Vaughn MD Work Phone: [facility] Work Phone: 11-03-2000 measles/mumps/rubell a virus vaccine KIRSTEN CISNEROS TEAM GUIDE-BARREL MARKER [facility] 11-03-2000 varicella virus vaccine Chayo Harris MD Work Phone: [facility] Work Phone: 05-05-2000 diphtheria, tetanus toxoids and acellular pertussis vaccine Ledy Vaughn MD Work Phone: [facility] Work Phone: 05-05-2000 haemophilus influenz ae type b vaccine, HbOC conjugate Ledy Vaughn MD Work Phone: [facility] Work Phone: 05-05-2000 hepatitis B vaccine, pediatric or pediatric/adolescent dosage Ledy Vaughn MD Work Phone: [facility] Work Phone: 05-05-2000 poliovirus vaccine, inactivated Ledy Vaughn MD Work Phone: [facility] Work Phone: 03-03-2000 diphtheria, tetanus toxoids and acellular pertussis vaccine Ledy Vaughn MD Work Phone: [facility] Work Phone: 03-03-2000 haemophilus influenz ae type b vaccine, HbOC conjugate Ledy Vaughn MD Work Phone: [facility] Work Phone: 03-03-2000 poliovirus vaccine, inactivated Ledy Vaughn MD Work Phone: [facility] Work Phone: 1999 diphtheria, tetanus toxoids and acellular pertussis vaccine Ledy Vaughn MD Work Phone: [facility] Work Phone: 1999 haemophilus influenz ae type b vaccine, HbOC conjugate Ledy Vaughn MD Work Phone: [facility] Work Phone: 1999 hepatitis B vaccine, pediatric or pediatric/adolescent dosage Ledy Vaughn MD Work Phone: [facility] Work Phone: 1999 poliovirus vaccine, inactivated Ledy Vaughn MD Work Phone: [facility] Work Phone: 1999 hepatitis B pediatri c vaccine KIRSTEN BLAYNE TEAM GUIDE-BARREL MARKER [facility] 2000 hepatitis B vaccine, pediatric or pediatric/adolescent dosage Ledy Vaughn MD Work Phone: [facility] Work Phone: Payers Date Payer Category Payer Self-pay [id number] 2025 Unknown [id number] 2023 Unknown [id number] 2021 Unknown [id number] 2021 Unknown [id number] 2021 Unknown [id number] 1999 Unknown [id number] 2.16. 840.1.658242.3.579.2.356 1999 Unknown [id number] 2.16. 840.1.153637.3.579.2.356 1999 Unknown [id number] 2.16.8 40.1.084905.3.579.2.419 1999 Unknown [id number] 2.16. 840.1.481508.3.579.2.668 1999 Unknown [id number] 2.16.8 40.1.035627.3.579.2.627 1999 Unknown [id number] 2.16.8 40.1.670307.3.579.2.627 1999 Unknown [id number] 2.16.8 40.1.912328.3.579.2.627 1999 Unknown [id number] 2.16.8 40.1.693303.3.579.2.627 1999 Unknown [id number] 2.16.8 40.1.052695.3.579.2.627 1999 Unknown [id number] 2.16.8 40.1.307207.3.579.2.627 1999 Unknown [id number] 2.16.8 40.1.932988.3.579.2.627 1999 Unknown [id number] 2.16.8 40.1.887132.3.579.2.627 1999 Unknown [id number] 2.16.8 40.1.368880.3.579.2.627 1999 Unknown [id number] 2.16.8 40.1.365161.3.579.2.627 1999 Unknown [id number] 2.16. 840.1.779568.3.579.2.479 1999 Unknown [id number] 2.16 840.1.340998.3.579.2479 1999 Unknown [id number] 2.16 840.1.619648.3.579.2479 Unknown [id number] Unknown [facility] [id number] Unknown [facility] [id number] Unknown [facility] [id number] Unknown [id number] 2.16.8 40.1.683553.3.579.2.462 Unknown [id number] 2.16.8 40.1.045003.3.579.2.462 Unknown [id number] 2.16.8 40.1.972593.3.579.2.462 Unknown [id number] 2.16.8 40.1.652993.3.579.2.462 Unknown [id number] 2.16.8 40.1.602893.3.579.2.462 Unknown [id number] 2.16.8 40.1.305048.3.579.2.462 Unknown [id number] 2.16.8 40.1.454440.3.579.2.462 Unknown [id number] 2.16.8 40.1.711768.3.579.2.462 Unknown [id number] 2.16.8 40.1.861176.3.579.2.462 Unknown [id number] 2.16.8 40.1.050748.3.579.2.462 Unknown [id number] 2.16.8 40.1.551175.3.579.2.462 Unknown [id number] 2.16.8 40.1.354144.3.579.2.462 Unknown [id number] 2.16.8 40.1.933234.3.579.2.462 Unknown [id number] 2.16.8 40.1.474752.3.579.2.462 Unknown [id number] 2.16.8 40.1.141503.3.579.2.462 Unknown [id number] 2.16.8 40.1.547505.3.579.2.462 Unknown [id number] 2.16.8 40.1.110747.3.579.2.462 Unknown [id number] 2.16.8 40.1.254202.3.579.2.462 Unknown [id number] 2.16.8 40.1.369891.3.579.2.462 Social History Date Type Detail Facility Start: 12-31-2021 End: 07-28-2024 Tobacco smoking status NHIS Never smoked tobacco [facility] Start: 12-31-2021 End: 08-19-2022 Tobacco use and exposure Smokeless tobacco non-user [facility] Start: 12-31-2021 End: 10-14-2022 Alcohol intake Ex-drinker (finding) [facility] Start: 06-27-2013 End: 08-19-2022 Tobacco Comment dad smokes outside [facility] Start: 2000 Sex Assigned At Female C [facility] Start: 06-28-2022 End: 08-19-2022 Exposure to SARS-CoV-2 (event) Not sure [facility] Start: 2000 Sex Assigned At Not on file [facility] [employer] Work Phone: Start: 08-09-2022 End: 08-09-2022 Tobacco smoking status NHIS Unknown if ever smoked [facility] Work Phone: Start: 10-24-2020 Spouse/ Signif icant Other [facility] Work Phone: Start: 07-12-2022 [facility] Goals Date Patient Goal Desired Activity [...] bilat biceps and triceps [facility] [place] 04-02-2023 Functional Status Rooming in [facility] 04-01-2023 Functional Status [facility] 04-01-2023 Functional Status Independent [facility] 04-01-2023 Functional Status [facility] 03-30-2023 Functional Status Home independently [facility] 03-07-2023 Functional Status Ambulating in room [facility] Mental Status Date Assessment Result Facility 03-07-2023 Mental Status Orientation Oriented x 4 [facility] Clinical Notes 07-09-2022 to 02-18-2024 Laboratory Note [...] 02/19/2024 1:39:46 AM Ordering Provider: KIRSTEN CISNEROS [facility] 10-15-2023 Evaluation + Plan note Diagnostic Tests PendingVitamin B12 Level 10/15/23Folate Level 10/15/23 Future Scheduled TestsGlucose Level 07/20/23Lipid Profile 07/20/23 [facility] 04-02-2023 Evaluation + Plan note Extrac barbara from: Title:Clinical Document Author:LONG DICKERSON MD Date:04/02/23 Subjective Comfortable with oral Motrin Lochia small. Baby is eating well per bottle Stayed overnight due to elevated bili levels in baby Objective Looks very well. Independent in room. Abdomen: Soft, uterus firm at U- 2 Extremities: Nontender with 1+ edema VITALS OtnyfoGyvpVSWzzlpXAKlN1TFY9WcybFb(kg) 04/02 00:3136.6--421861--60/20 78.0 04/01 16:2036.5--7916---- 04/01 08:4136.1--8114---- 03/31 23:3036.6--8416---- [...] q6h, 03/30/23 19:48:00 EDT Problems (4) Anxiety ([id number]) Body mass index 30+ - obesity (127220849) (174825295) UTI (urinary tract infection) ([id number]) ASSESSMENT/PLAN: PPD #2 after . Doing very well. Home today. Extracted from: Title:Clinical Document Author:LONG DICKERSON MD Date:03/31/23 Subjective Comfortable with oral Motrin Lochia small. Baby is nursing well. . Objective Looks very well. Independent in room. CVS: RRR Lungs: CTA B Abdomen: Soft, uterus firm at U- 1 Extremities: Nontender with 1+ edema VITALS IebaucOpbsXUXxtazVNXeC3AZW2KvxrWx(kg) 03/31 08:3636.8--7816----03/30 78.0 03/31 05:4936--8216---- 03/31 02:00 RA 03/30 20:15----00966--FA 03/30 20:00----8018--RA 24 Hr Tmax: 36.8 at [...] q6h, 03/30/23 19:48:00 EDT Problems (4) Anxiety ([id number]) Body mass index 30+ - obesity (555558195) (826268134) UTI (urinary tract infection) ([id number]) ASSESSMENT/PLAN: PPD #1 after Outlet vacuum delivery [...] SYSTEMS: All negative ACTIVE PROBLEMS: (4) Anxiety ([id number]) Body mass index 30+ - obesity (949960381) (798924333) UTI (urinary tract infection) ([id number]) ALLERGIES: (1) CeleXA FAMILY HISTORY: No inheritable diseases. SOCIAL HISTORY: . Denies tobacco use Denies alcohol use. No illicit drug use. PHYSICAL EXAM: VITALS: LwofawJyhePKRqpwxMSGgP0MCB5MaymOq(kg) 03/30 10:5735.6--7518----03/30 78.0 03/30 10:0535.9 03/30 09:0536.1 [...] Date:04/20/2023 02:00:00 PM Scheduled Provider:SUNIL GRAHAM MD [facility]ointment Type:[facility] 06-22-2023 Note day #2 progress [...] MARTINEZ NÚÑEZ MD on 04/01/2023 09:01 AM [facility]06-21-2023 Hospital Discharge instructions Patient Education [...] work with your health care provider or sap enterprise portal consultant. If you are not : ?Avoid [...] about methods of control (contraception). Medicines Take qgbe-fyw-hljwkbk and prescription medicines only as told by [...] 07/24/2008 Document Revised: 09/30/2018 Document Reviewed: 07/11/2018 [employer] Patient Education 2020 [employer]. 03/31/2023 12:34:52 7b- Depression and Blues (07/2020) [...] psychosis. Often, a screening tool called the Leicester Depression Scale is used to diagnose depression [...] music. Avoid alcohol. Ask for help with molasses feed mixer, cooking, grocery shopping, or running errands as needed. Do nottry to do everything. Talk to people close to you about how you are feeling. Get support from your partner, family members, and friends. Try to stay positive in how you think. Think about the things you are grateful for. Do not spend a lot of time alone. Only take zrdc-chl-yvoaxil or prescription medicine as directed by your [...] not doing well or get worse. Resource: [facility] Patient Information 2015 [facility]. This information is not intended to replace advicegiven to you by your health care provider. Make sure you discuss any questions you have with your health care provider. Follow Up Care 03/30/2023 06:39:24 With:LONG DICKERSON Address: [address] [place] [address] [facility] [address]- [phone] Business (1) When: Unknown [facility] 06-21-2023 Note Date of Service 03/31/23 Chief Complaint Subjective 22 yo [facility] Doing well. pain well [...] 1 herlinda, Perineum, AsDirected benzocaine topical 20% [place] 1 spray(s), Perineum, q1h bisacodyl 10 mg [...] SUNIL GRAHAM MD on 03/31/2023 11:37 AM [facility]06-21-2023 Anesthesiology Consult note Patient: LUZ OLIVEIRA Age: 22 years Sex: Female : 2000 Associated Diagnoses: None Author: JENNIFER MERA TEAM GUIDE-MOLDING LINE OPERATOR Assessment Postanesthesia assessment Vitals: Vital signs from flowsheet : Vital Signs 03/31/2023 5:49 EDT Temperature Temporal Artery 36 DegC Heart Rate Monitored 82 bpm Respiratory Rate 16 br/min Systolic Blood Pressure Non-Invasive 109 mmHg Diastolic Blood Pressure Non-Invasive [address] [facility] 03/30/2023 20:15 EDT Heart Rate Monitored [...] mmHg Diastolic Blood Pressure Non-Invasive 94 mmHg [place] 03/30/2023 18:56 EDT Heart Rate Monitored 98 [...] by JENNIFER MERA on 03/31/2023 06:15 AM [facility]-20-2023 Note Patient seen at 1730 [...] LONG DICKERSON MD on 03/30/2023 05:30 PM [facility]06-20-2023 Note Patient seen at 1730 [...] LONG DICKERSON MD on 03/30/2023 05:30 PM [facility]-20-2023 Note Patient seen at 1730 [...] LONG DICKERSON MD on 03/30/2023 05:30 PM [facility]-20[facility]2023 Note CHIEF COMPLAINT: Membranes ruptured [...] SYSTEMS: All negative ACTIVE PROBLEMS: (4) Anxiety ([id number]) Body mass index 30+ - obesity ([id number]) ([id number]) UTI (urinary tract infection) ([id number]) ALLERGIES: (1) CeleXA FAMILY HISTORY: No inheritable diseases. SOCIAL HISTORY: . Denies tobacco use Denies alcohol use. No illicit drug use. PHYSICAL EXAM: VITALS: NegbyrRchkBXByphwOPIrB9NGT7DmgxKl(kg) 03/30 10:5735.6--7518----03/30 78.0 03/30 10:0535.9 03/30 09:0536.1 [...] LONG DICKERSON MD on 04/02/2023 11:08 AM [facility]06-20-2023 Anesthesiology Consult note Patient: LUZ OLIVEIRA Age: 22 years Sex: Female : 2000 Associated Diagnoses: None Author: JENNIFER MERA TEAM GUIDE-MOLDING LINE OPERATOR Preoperative Information laboring Anesthesia history Patient's history: [...] Problem list: Medical Anxiety / SNOMED CT [id number] / Confirmed Body mass index 30+ - obesity / SNOMED CT [id number] / Confirmed / SNOMED CT [id number] / Confirmed UTI (urinary tract infection) / SNOMED CT [id number] / Confirmed, Active Problems (4) Anxiety Body mass index 30+ - obesity UTI (urinary tract infection) Histories Past Medical History: Active Anxiety ([id number]) UTI (urinary tract infection) ([id number]) Family History: Cancer Grandparent Comments: 10/22/2022 14:27 AUGIE Navarro Poonam Sanchez OPERATIONS CHIEF maternal, brain Cardiac pacemaker Mother Diabetes mellitus Mother Asthma Grandparent Breast cancer Grandparent Heart disease Mother HTN - Hypertension Father COPD Grandparent Diabetes Grandparent Procedure history: [place] tooth ([id number]). Social History Social & Psychosocial Habits Alcohol [...] Signs(last 24 hrs) Last Charted Heart Rate Iiafycfnt83 bpm (MAR 30 10:57) Resp Rate 18 br/min (MAR 30 10:57) PRB494 mmHg (MAR 30 10:57) DBPL 59mmHg (MAR 30 10:57) BMI32.47 (MAR 30 07:49) Measurements from flowsheet : Measurements 03/30/2023 7:49 EDT Height 155.0 cm Admission Weight 78 kg Buhl Body Weight 47.85 kg BSA Admission 1.77 [...] Height 155.0 cm Admission Weight 78 kg Buhl Body Weight 47.85 kg BSA Admission 1.77 [...] Baby For Adoption No Surrogate No Discharge [place] Physician [facility] Participant No Safe Sleep Environment [...] Teaching Evaluation Refused information Preferred Written Language Yemeni Preferred Spoken Language Yemeni Chief Complaint SROM Mode of Arrival Ambulatory Information Given by Patient Patient's Current Physicians Dr Graham Emergency Contact Number Luis Daniel Oliveira [phone] Belongings At Bedside Cell phone, Professor Of Family Medicine Personal Home Medications Received No home medications [...] FHR Interpretation Category: Category One 03/30/2023 7:14 [facility] History and Physical History and Physical . Assessment and Plan [place] Society of Anesthesiologists (ASA) physical status classification: Class II. Anesthetic Preoperative Plan Anesthetic technique: Epidural. Informed consent: signed by patient. Digitally Signed by JENNIFER MERA on 03/30/2023 01:37 PM [facility]06-20-2023 Note Date of Service 03/30/23 Chief Complaint SROM History of Present Illness 22 yo G1@39.2 presents with large gush of fluid around 0600 and regular contractions. c/bobesity and recent growth US AC 7%le overall 15%le. Noted blood tinged fluid. Growth at 37 weeks for obesity showed borderline low fluid 5 cm, growth in 15%le. FARE COLLECTOR history: Menarche: Menses: Menopause: n/a HRT: n/a [...] of breast bx: no Colonoscopy: DXA: Family FARE COLLECTOR history: Breast/colon/ovarian/uterine cancer: MGM w breast ca [...] infection) Historical No qualifying data Procedure/Surgical History [place] tooth Medications Home Medications (5) Active AD [...] SUNIL GRAHAM MD on 03/30/2023 07:30 AM [facility]05-28-2023 Hospital Discharge instructions Patient Education 03/07/2023 20:26:05 7 - Labor and Delivery Outpatient Instructions (CUSTOM) [facility] HOME-GOING INSTRUCTIONS _X_ [...] crackers, bananas, Jell-O, cooked carrots, applesauce. ___ Glades diet. Avoid caffeine, chocolate, alcohol, spiced/greasy foods. [...] the nearest Emergency Room for assistance. Form [id number] D: 09/18 Document Released: 09/27/2006 Document Revised: 09/15/2012 Document Reviewed: 09/27/2006 ExitCare Patient Information 2012 m2fx. Follow Up Care 03/07/2023 19:56:20 With:WILTON AN, MARTINEZ Bautista Address: [address] [place] [address] [facility] [address] [phone] When:03/09/2023 [facility] 05-27-2023 Hospital Discharge instructions Patient Education 03/06/2023 18:27:44 7 - Labor and Delivery Outpatient Instructions (CUSTOM) [facility] HOME-GOING INSTRUCTIONS _X_ [...] crackers, bananas, Jell-O, cooked carrots, applesauce. ___ [place] diet. Avoid caffeine, chocolate, alcohol, spiced/greasy foods. [...] the nearest Emergency Room for assistance. Form [id number] D: 09/18 Document Released: 09/27/2006 Document Revised: 09/15/2012 Document Reviewed: 09/27/2006 ExitCare Patient Information 2011 m2fx. [facility] 04-18-2023 Hospital Discharge instructions Patient Education 01/26/2023 03:27:22 7 - Labor and Delivery Outpatient Instructions (CUSTOM) [facility] HOME-GOING INSTRUCTIONS _X_ [...] crackers, bananas, Jell-O, cooked carrots, applesauce. ___ [place]ades diet. Avoid caffeine, chocolate, alcohol, spiced/greasy foods. [...] the nearest Emergency Room for assistance. Form [id number] D: 09/18 Document Released: 09/27/2006 Document Revised: 09/15/2012 Document Reviewed: 09/27/2006 ExitCare Patient Information 2012 m2fx. Follow Up Care 01/26/2023 00:53:10 With:Follow up with primary care provider Address:Unknown When: Unknown [facility] 02-25-2023 Miscellaneous Notes* Telephone Encounter - Alex Garcia DO - 12/05/2022 5:08 PM EST Not a CFM patient documented [facility] Hospital Discharge instructions Patient Education 11/18/2022 [...] crackers, bananas, Jell-O, cooked carrots, applesauce. ___ [place] diet. Avoid caffeine, chocolate, alcohol, spiced/greasy foods. [...] the nearest Emergency Room for assistance. Form [id number] D: 09/18 Document Released: 09/27/2006 Document Revised: 09/15/2012 Document Reviewed: 09/27/2006 ExitCare Patient Information 2012 m2fx. Follow Up Care 11/18/2022 11:50:05 With:SUNIL GRAHAM Address: [address] [place] [address] [facility] [address]- [phone] Business (1) When: Unknown [facility] 01-19-2023 NoteHNO ID: [id number] Author: Tad Shaw DO Service: Obstetrics Author [...] with plan. Tad Shaw DO 4:21 AM 10/29/2022[facility]01-19-2023 NoteHNO ID: [id number] Author: Tad Shaw DO Service: Obstetrics Author [...] intractable nausea/vomiting. She was sent her from [facility] Main ED. In the ED, patient [...] Diagnosis Date Cognitive disorder IEP per the [facility]ologist [facility] Kidney stone Migraine [...] October 29, 2022 TIME: 3:25 [facility]01-19-2023 NoteCOVID 19 RESULT: SARS-CoV-2 (Agent of COVID-19) Not Detected by RT-PCR or equivalent method. This test has been authorized by FDA under an Emergency Use Authorization (EUA). INFLUENZA A PCR: Negative for Influenza A by RT-PCR INFLUENZA B PCR: Negative for Influenza B by RT-PCR RSV PCR: Negative for Respiratory Syncytial Virus (RSV) by [facility] CenterComment on above:Performed By: #### [id number] ####[facility] LABORATORYCLIA [id number] [place] [address] [place] [id number] Miscellaneous Notes* Quick Notes - Gretel Quintana [...] vaccine). Gretel Quintana MD documented in this encounterC[facility]01-04-2023 Nurse Note* Aimee Desir Ma - 10/14/2022 11:01 AM EST Movement? Flutters Vaginal Bleeding: NO Vaginal fluid leakage of fluid: NO Contractions: no contractions documented in this encounterCleveland [facility]12-08-2022 NoteHNO ID: [id number] Author: Braulio Hollingsworth MD Service: ? Author Type: Physician Type: Progress Notes Filed: 09/17/2022 2:28 PM Note Text: Please refer to quick note and flow sheet. [facility]insC[facility]2022 NoteHNO ID: [id number] Author: Braulio Hollingsworth MD Service: ? 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 loratadine (CLARITIN) 10 mg tablet Take 1 tablet by mouth once daily. fluticasone (FLONASE) 50 mcg/actuation nasal spray Use 1 [place] in each nostril once daily. No current [...] 4 weeks or sooner prn. Braulio Hollingsworth [facility]11-09-2022 NoteHNO ID: [id number] Author: Braulio Hollingsworth MD Service: ? Author Type: Physician Type: Progress Notes Filed: 08/19/2022 5:28 PM Note Text: OB point of care ultrasound was performed. See imaging tab for details. 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 No current [...] prn. Braulio Hollingsworth MD documented in this encounterCleveland [facility]11-09-2022 Instructions* Patient Instructions* Braulio Hollingsworth MD - 08/19/2022 1:48 PM EST Please select the following link to access the [facility] Your Guide to a Healthy . [email or web address] documented in this encounterCleveland Clinic [facility]11-09-2022 History of Present illness Narrative* Braulio Hollingsworth MD - 08/19/2022 1:41 PM EST OB point of care ultrasound was performed. See imaging tab for details. Braulio Hollingsworth MD documented in this encounterCleveland Clinic [facility]11-09-2022 Nurse Note* Jennifer Stevenson MA - 08/19/2022 1:07 PM EST Movement? Too early Vaginal Bleeding: YES/MD NOTIFIED-Has had for 2 weeks Vaginal fluid leakage of fluid: NO Contractions: no contractions documented in this encounterCleveland Clinic [facility]11-04-2022 NoteHNO ID: [id number] Author: Zuhair Condon DO Service: Obstetrics Author [...] 14, 2022 TIME: 9:44 PM PAGER/CONTACT #: [phone] [facility] NoteHNO ID: [id number] Author: Zuhair Condon DO Service: Obstetrics Author [...] Patient states that she originally went to [place] ED on 08/09/22. 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 No [...] at time of discharge (more content not included)...[facility] Miscellaneous Notes* Telephone Encounter - Nisa Murphy - 08/10/2022 9:31 AM EDT Patient was in ED for bleeding. Not currently bleeding has new OB appointment 08/19. Please advise if you would like to see her sooner. documented in this encounterCleveland Clinic [facility]10-25-2022 Hospital Discharge instructions* Discharge Instructions* Melania Mitchell MD - 08/04/2022 1:22 PM EDT Please call your OB today to schedule a follow up visit in the next 2 days. * Attachments The following attachments cannot be sent through Care Everywhere. * Miscarriage: Threatened (Yemeni) documented in this encounterSUMMA Work Phone: [phone] Miscellaneous Notes* Telephone Encounter - Verónica Alegre [...] 09, 2022 12:24 PM documented in this encounterCleveland Clinic Lutheran HospitalEvaluation + Plan note Future Appointments Appointment Date:11/16/2022 02:00:00 PM Scheduled Provider:SUNIL GRAHAM MD Location:[facility] Appointment Type: OV OB Routine Follow Up [facility] Evaluation + Plan note Future Appointments Appointment Date:12/14/2022 02:15:00 PM Scheduled Provider:SUNIL GRAHAM MD Location:[facility] Appointment Type: OV OB Routine Follow Up Appointment Date:12/23/2022 08:30:00 AM Scheduled Provider: Location:[facility] Appointment Type:US OB > 14 wks Future Scheduled Tests Radiology* US OB Limited/Transvaginal 01/11/23 * US OB > 14 weeks 12/23/22 [facility] Evaluation + Plan note Future [...] Antibody 12/14/22 Radiology* US OB Limited/Transvaginal 01/11/23 [facility] Evaluation + Plan note Future Appointments Appointment Date:01/25/2023 01:00:00 PM Scheduled Provider:SUNIL GRAHAM MD Location[facility] Appointment Type: OV OB Routine Follow Up [...] Antibody 12/14/22 Radiology* US OB Limited/Transvaginal 01/11/23 [facility] Evaluation + Plan note Future Appointments Appointment Date:02/01/2023 01:15:00 PM Scheduled Provider:SUNIL GRAHAM MD Location:[facility] Appointment Type:[facility] Routine Follow Up Appointment Date:03/15/2023 02:00:00 PM Scheduled Provider: Location:[facility] Appointment Type:US OB > 14 wks Future [...] * US OB > 14 weeks 03/15/23 [facility] Evaluation + Plan note Future Appointments Appointment Date:03/09/2023 01:45:00 PM Scheduled Provider:LONG DICKERSON MD Location:[facility] Appointment Type:[facility] OB Routine Follow Up Appointment Date:03/15/2023 02:00:00 PM Scheduled Provider: Location:[facility] Appointment Type:US OB > 14 wks Future [...] * US OB > 14 weeks 03/15/23 [facility] Evaluation + Plan note Future Appointments Appointment Date:03/15/2023 02:00:00 PM Scheduled Provider: Location:[facility] Appointment Type:US OB > 14 wks Appointment Date:03/16/2023 02:30:00 PM Scheduled Provider:LONG DICKERSON MD Location:[facility] Appointment Type:[facility] OB Routine Follow Up Diagnostic Tests Pending [...] * US OB > 14 weeks 03/15/23 [facility] Evaluation + Plan note Future Appointments Appointment Date:03/15/2023 02:00:00 PM Scheduled Provider: Location:[facility] Appointment Type:US OB > 14 wks Appointment Date:03/16/2023 02:30:00 PM Scheduled Provider:LONG DICKERSON MD Location:[facility] Appointment Type:[facility] OB Routine Follow Up Future Scheduled Tests [...] * US OB > 14 weeks 03/15/23 [facility] Evaluation + Plan note Future Appointments Appointment Date:03/16/2023 02:30:00 PM Scheduled Provider:LONG DICKERSON MD Location:[facility] Appointment Type: OV OB Routine Follow Up [...] Urine 01/25/23 Radiology* US OB Limited/Transvaginal 01/11/23 [facility] Evaluation + Plan note Future Appointments Appointment Date:07/28/2024 08:30:00 AM Scheduled Provider:KIRSTEN CISNEROS Location:[facility] Appointment Type:[facility] Annual Future Scheduled Tests Laboratory* Glucose Level 07/20/23 * Lipid Profile 07/20/23 [facility] Evaluation + Plan note Future Appointments Appointment Date:08/25/2024 07:30:00 AM Scheduled Provider:KIRSTEN CISNEROS Location:[facility] Appointment Type:PC OV Future Scheduled Tests Radiology* CT Head or Brain w/o Contrast 07/28/24 * CT Spine Cervical w/o Contrast 07/28/24 [facility] Evrzqruubn note* Diagnosis Threatened miscarriage in early - Primary Threatened , unspecified as to episode of care documented in this encounter [facility] Work Phone: Evaluation note* Diagnosis Onset Date Resolution Status Acute lumbar myofascial strain acute Blunt abdominal trauma acute Cervical strain, acute acute Chest wall contusion acute Concussion without loss of consciousness acute Lumbar radiculopathy, acute acute [facility] Work Phone: Evaluation note* Diagnosis Encounter for supervision of normal first in first trimester- Primary Supervision of normal first documented in this encounter [facility] note* Diagnosis with uncertain dates in first trimester- Primary documented in this encounter [facility] note* Diagnosis Encounter for supervision of normal first in second trimester- Primary Supervision of normal first Need for influenza vaccination Need for prophylactic vaccination and inoculation against influenza 15 weeks gestation of state, incidental [facility] Narrative No data available for this section [facility] Hospital Discharge instructions Additional Instructions 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 Return if you have worsening symptoms or worsening abdominal pain/fever.[facility] Work Phone: Hospital Discharge instructions No data available for this section [facility] Progress note No data available for this section [facility] Reason for referral (narrative)* Diagnostic Procedure Only (Routine) - Pending Review Specialty Diagnoses / Procedures Referred By Contac t Referred To Contact [facility] Diagnoses Encounter for supervision of normal first in first trimester Procedures NUCHAL TRANSLUCENCY WHI US NUCHAL TRANSLUCENCY 1ST GESTATION Braulio Hollingsworth MD [address] [facility] [address] [place] [address] [facility] [address] [employer] [address] Referral ID Status Reason Start Date Expiration Date Visits Requested Visits Authorized [id number] Pending Review Auto-Generat ed Referral 08/19/2022 08/19/2023 1 1 [facility] Diagnostic Procedure Only (Routine) - Authorized Specialty Diagnoses / Procedures Referred By Contac t Referred To Contact [facility] Diagnoses Encounter for supervision of normal first in second trimester Procedures OBSTETRIC ULTRASOUND WHI US PREG UTERUS AFTER 1ST TRIMEST GESTATION Gretel Quintana MD [address] [phone] [facility] [address] [address] Referral ID Status Reason Start Date Expiration Date Visits Requested Visits Authorized [id number] Authorized Auto-Generat ed Referral 10/14/2022 10/14/2023 1 1 [facility] Summary Purpose Family History No [...] Will No August 09 2:12pm Power of Dental Ceramist Assistant No August 09, 2022 2:12pm Advance Directive Response Recorded Date/ Time Advance Directives No June 7:50am Living Will No August 09 1:12pm Power of Dental Ceramist Assistant No August 09, 2022 1:12pm Chief Complaint [...] section and content) DATE CREATED AUTHOR 09/19/2018 [facility] DATE CREATED AUTHOR AUTHOR'S ORGANIZ ATION 12/26/2018 [facility] DATE CREATED AUTHOR AUTHOR'S ORGANIZ ATION 04/29/2019 [facility] DATE CREATED AUTHOR AUTHOR'S ORGANIZ ATION 12/25/2019 [facility] DATE CREATED AUTHOR AUTHOR'S ORGANIZ ATION 03/17/2021 [facility] DATE CREATED AUTHOR AUTHOR'S ORGANIZ ATION 08/29/2021 [facility] DATE CREATED AUTHOR AUTHOR'S ORGANIZ ATION 08/05/2022 [facility] DATE CREATED AUTHOR AUTHOR'S ORGANIZ ATION 11/13/2022 [facility] DATE CREATED AUTHOR AUTHOR'S ORGANIZ ATION 11/14/2022 [facility] DATE CREATED AUTHOR AUTHOR'S ORGANIZ ATION 02/20/2024 [facility] DATE CREATED AUTHOR AUTHOR'S ORGANIZ ATION 08/20/2024 [facility] DATE CREATED AUTHOR AUTHOR'S ORGANIZ ATION 06/27/2025 [facility] DATE CREATED AUTHOR AUTHOR'S ORGANIZ ATION 07/27/2025 [facility] Source Comments (unrecognize d section and content) In the event this informatio n is protected by the Federal Confidentiality of Alcohol and Drug Abuse Patient Records regulations: The Federal rules restrict any use of the information to criminally investigate or prosecute any alcohol or drug abuse patient.[facility] HospitalIn the event this information is protected by the Federal Confidentiality of Alcohol and Drug Abuse Patient Records regulations: The Federal rules restrict any use of the information to criminally investigate or prosecute any alcohol or drug abuse patient.[facility] HospitalIn the event this information is protected by the Federal Confidentiality of Alcohol and Drug Abuse Patient Records regulations: The Federal rules restrict any use of the information to criminally investigate or prosecute any alcohol or drug abuse patient.[facility] HospitalIn the event this information is protected by the Federal Confidentiality of Alcohol and Drug Abuse Patient Records regulations: The Federal rules restrict any use of the information to criminally investigate or prosecute any alcohol or drug abuse patient.[facility] HospitalIn the event this information is protected by the Federal Confidentiality of Alcohol and Drug Abuse Patient Records regulations: The Federal rules restrict any use of the information to criminally investigate or prosecute any alcohol or drug abuse patient.[facility] HospitalIn the event this information is protected by the Federal Confidentiality of Alcohol and Drug Abuse Patient Records regulations: The Federal rules restrict any use of the information to criminally investigate or prosecute any alcohol or drug abuse patient.[facility] HospitalIn the event this information is protected by the Federal Confidentiality of Alcohol and Drug Abuse Patient Records regulations: The Federal rules restrict any use of the information to criminally investigate or prosecute any alcohol or drug abuse patient.[facility] Reason for Visit (unrecogniz ed section [...] Member Role: Primary Care Physician Address: Address: [address] [place] [phone] Care Team Related Persons Name: RASHMI MTZ Address: Home [address] [place] [phone] [place] Name: MARGARITO MTZ Address: Home [address] [place] [phone] [place] Name: MARGARITO MTZ Address: Home [address] [place] [phone] [place] Name: MARGARITO MTZ Address: Home [address] [place] [address] [phone] [place] Name: MARGARITO MTZ Address: Home [address] [place] [phone] [place] Name: MARGARITO MTZ Address: Home [address] [place] [phone] [place] Name: MARGARITO MTZ Address: Home [address] [place] [address] [phone] [place] Name: MARGARITO MTZ Address: Home [address] [place] [phone] [place] Name: MARGARITO MTZ Address: Home [address] [place] [phone] [place] Care Team Personnel Name: MAXWELL GOMEZ MD Member Role: Primary Care Physician Address: Address: [address] [place], [place] [id number] Care Team Related Persons Name: RASHMI MTZ Address: Home [address] [place] [phone] [place] Name: MARGARITO MTZ Address: Home [address], [place] [phone] [place] Name: MARGARITO MTZ Address: Home [address], [place] [phone] [place] Name: MARGARITO MTZ Address: Home [address] [place] [phone] [place] Name: MARGARITO MTZ Address: Home [address] [place] [address] [phone] [place] Name: MARGARITO MTZ Address: Home [address] [place] [address] [phone] [place] Name: MARGARITO MTZ Address: Home [address] [place] [address] [phone] [place] Name: MARGARITO MTZ Address: Home [address] [place] [address] [phone] [place] Name: MARGARITO MTZ Address: Home [address] [place] [address] [phone] Patient Care team informatio n (unrecognized section and content) Care Team Personnel Name: MAXWELL GOMEZ MD Member Role: Primary Care Physician Address: Address: [address] [place], [place] [id number] [place] Care Team Related Persons Name: RASHMI MTZ Address: Home [address] [phone] [place] Name: MARGARITO MTZ Address: Home [address] [place] [phone] [place] Name: MARGARITO MTZ Address: Home [address] [place] [address] [phone] [place] Name: MARGARITO MTZ Address: Home [address] [place] [address] [phone] [place] Name: ELVIA MTZRI Address: Home [address] [place] [phone] [place] Name: MARGARITO MTZ Address: Home [address], [place] [phone] [place] Name: MARGARITO MTZ Address: Home [address], [place] [phone] [place] Name: MARGARITO MTZ Address: Home [address], [place] [phone] [place] Name: MARGARITO MTZ Address: [address], [place] [id number] [place] Care Team Personnel Name: MAXWELL GOMEZ MD Member Role: Primary Care Physician Address: Address: [address] [place] [phone] [place] Care Team Related Persons Name: RASHMI MTZ Address: Home [address] [phone] [place] Name: MARGARITO MTZ Address: Home [address], [place] [phone] [place] Name: MARGARITO MTZ Address: Home [address], [place] [id number] [place] Name: MARGARITO MTZ Address: Home [address], [place] [phone] [place] Name: MARGARITO MTZ Address: Home [address], [place] [phone] [place] Name: MARGARITO MTZ Address: Home [address], [place] [id number] [place] Name: MARGARITO MTZ Address: Home [address], [place] [id number] [place] Name: MARGARITO MTZ Address: Home [address], [place] [phone] [place] Name: MARGARITO MTZ Address: [address], [place] [phone] [place] Care Team Personnel Name: SUNIL GRAHAM MD Position: P4 CARD CLOTHIER Provider Member Role: Primary Care Physician Address: Address: [address] [place], [place] [address] [facility] [place], [place] [address] Care Team Related Persons Name: RASHMI MTZ Address: Home [address] [phone] [place] Name: MARGARITO MTZ Address: Home [address], [place] [phone] [place] Name: MARGARITO MTZ Address: Home [address], [place] [phone] [place] Name: MARGARITO MTZ Address: Home [address], [place] [phone] [place] Name: ELVIA MTZRI Address: Home [address], [place] [phone] [place] Name: ELVIA MTZRI Address: Home [address], [place] [phone] [place] Name: ELVIA MTZRI Address: Home [address], [place] [phone] [place] Name: ELVIA MTZRI Address: [address], [place] [phone] [place] Name: ELVIA MTZRI Address: [address], [place] [phone] [place] Care Team Personnel Name: SUNIL GRAHAM MD Position: P4 CARD CLOTHIER Provider Member Role: Primary Care Physician Address: Address: [address] [place] [address] Care Team Related Persons Name: RASHMI MTZ Address: Home [address] [phone] [place] Name: MARGARITO MTZ Address: Home [address], [place] [phone] [place] Name: ELVIA MTZRI Address: [address], [place] [phone] [place] Name: MARGARITO MTZ Address: Home [address], [place] [phone] [place] Name: ELVIA MTZRI Address: [address], [place] [phone] [place] Name: MARGARITO MTZ Address: [address], [place] [phone] [place] Name: MARGARITO MTZ Address: [address], [place] [phone] [place] Name: MARGARITO MTZ Address: [address], [place] [phone] [place] Name: MARGARITO MTZ Address: [address], [place] [phone] [place] Care Team Personnel Name: MARTINEZ NÚÑEZ MD Position: P4 CARD CLOTHIER Provider Member Role: Primary Care Physician Address: Address: [address] [place] [id number] Care Team Related Persons Name: RASHMI MTZ Address: Home [address] [phone] [place] Name: MARGARITO MTZ Address: [address], [place] [phone] [place] Name: MARGARITO MTZ Address: [address], [place] [phone] [place] Name: MARGARITO MTZ Address: [address], [place] [phone] [place] Name: MARGARITO MTZ Address: [address], [place] [phone] [place] Name: MARGARITO MTZ Address: [address], [place] [phone] [place] Name: MARGARITO MTZ Address: [address], [place] [phone] [place] Name: MARGARITO MTZ Address: Home [address] [place] [phone] [place] Name: MARGARITO MTZ Address: [address], [place] [phone] Care Team Personnel Name: AMRTINEZ NÚÑEZ MD Position: P4 CARD CLOTHIER Provider Member Role: Primary Care Physician Address: Address: [address] [place] [id number] Care Team Related Persons Name: RASHMI MTZ Address: Home [address] [phone] [place] Name: MARGARITO MTZ Address: [address], [place] [phone] [place] Name: MARGARITO MTZ Address: [address], [place] [phone] [place] Name: MARGARITO MTZ Address: [address], [place] [phone] [place] Name: MARGARITO MTZ Address: [address], [place] [phone] [place] Name: MARGARITO MTZ Address: [address], [place] [phone] [place] Name: MARGARITO MTZ Address: [address], [place] [phone] [place] Name: MARGARITO MTZ Address: [address], [place] [phone] [place] Name: MARGARITO MTZ Address: [address], [place] [phone] [place] Care Team Personnel Name: MARTINEZ NÚÑEZ MD Position: P4 CARD CLOTHIER Provider Member Role: Primary Care Physician Address: Address: [address] [place] [id number] Care Team Related Persons Name: RASHMI MTZ Address: Home [address] [phone] [place] Name: MARGARITO MTZ Address: [address], [place] [phone] [place] Name: MARGARITO MTZ Address: Home [address], [place] [phone] [place] Name: MARGARITO MTZ Address: [address], [place] [phone] [place] Name: MARGARITO MTZ Address: [address], [place] [phone] [place] Name: MARGARITO MTZ Address: [address], [place] [phone] [place] Name: MARGARITO MTZ Address: [address], [place] [phone] [place] Name: MARGARITO MTZ Address: [address], [place] [phone] [place] Name: MARGARITO MTZ Address: [address], [place] [phone] [place] Care Team Personnel Name: MARTINEZ NÚÑEZ MD Position: P4 CARD CLOTHIER Provider Member Role: Primary Care Physician Address: Address: [address] [place] [phone] Care Team Related Persons Name: RASHMI MTZ Address: Home [address] [phone] [place] Name: MARGARITO MTZ Address: [address], [place] [phone] [place] Name: MARGARITO MTZ Address: [address], [place] [phone] [place] Name: MARGARITO MTZ Address: [address], [place] [phone] [place] Name: MARGARITO MTZ Address: [address], [place] [phone] [place] Name: MARGARITO MTZ Address: [address], [place] [phone] [place] Name: MARGARITO MTZ Address: [address], [place] [phone] [place] Name: MARGARITO MTZ Address: [address], [place] [phone] [place] Name: MARGARITO MTZ Address: [address], [place] [phone] [place] Care Team Personnel Name: MARTINEZ NÚÑEZ MD Position: P4 CARD CLOTHIER Provider Member Role: Primary Care Physician Address: Address: [address] [place] [phone] [place] [address] Care Team Related Persons Name: RASHMI MTZ Address: Home [address] [phone] [place] Name: MARGARITO MTZ Address: [address], [place] [phone] [place] Name: MARGARITO MTZ Address: [address], [place] [phone] [place] Name: MARGARITO MTZ Address: [address], [place] [phone] [place] Name: MARGARITO MTZ Address: Home [address], [place] [phone] [place] Name: MARGARITO MTZ Address: [address], [place] [phone] [place] Name: MARGARITO MTZ Address: [address], [place] [phone] [place] Name: MARGARITO MTZ Address: [address], [place] [phone] [place] Name: MARGARITO MTZ Address: [address], [place] [phone] [place] Care Team Personnel Name: MARTINEZ NÚÑEZ MD Position: P4 CARD CLOTHIER Provider Member Role: Primary Care Physician Address: Address: [address] [place] [phone]- Care Team Related Persons Name: AMANDA OLIVEIRA Address: Home [address] [place] [phone] [place] Address: Temporary [address] [place], [place] [phone] Name: RASHMI MTZ Address: Home [address] [phone] [place] Name: MARGARITO MTZ Address: Home [address], [place] [phone] [place] Name: MARGARITO MTZ Address: [address], [place] [phone] [place] Name: MARGARITO MTZ Address: [address], [place] [phone] [place] Name: MARGARITO MTZ Address: [address], [place] [phone] [place] Name: MARGARITO MTZ Address: [address], [place] [phone] [place] Name: MARGARITO MTZ Address: [address], [place] [phone] [place] Name: MARGARITO MTZ Address: [address], [place] [phone] [place] Name: MARGARITO MTZ Address: [address], [place] [phone] [place] Care Team Personnel Name: MARTINEZ NÚÑEZ MD Position: P4 CARD CLOTHIER Provider Member Role: Primary Care Physician Address: Address: [address] [place] [address] [place], [place] [address] Care Team Related Persons Name: LUIS DANIEL OLIVEIRA Address: Home [address] [place], [place] [phone] Address: Temporary [address] [place], [place] [phone] Care Team Personnel Name: KIRSTEN CISNEROSBARREL MARKER Position: P4 Advanced Marketing Analytics Manager Member Role: Primary Care Physician Address: Address: [address] [place] [id number] Care Team Related Persons Name: LUIS DANIEL OLIVEIRA Address: Home [address] [place], [place] [phone] Address: Temporary [address] [place], [place] [phone] Care Team Personnel Name: KIRSTEN CISNEROS APRN-BARREL MARKER Position: P4 Advanced Marketing Analytics Manager Member Role: Primary Care Physician Address: Address: [address] [place] [phone] Care Team Related Persons Name: LUIS DANIEL OLIVEIRA Address: Home [address] [place], [place] [phone] Address: Temporary [address] [place], [place] [phone] FOR RECORDS PERTAINING TO PATIENTS WHO ARE [...] BE BASED ON THE PRIMARY CLINICAL RECORDS. [facility] [employer] [facility] [employer] provides no warranty or guarantee of the accuracy or completeness of information in this document.
--- OUTSIDE RECORDS SUMMARY | 2025-07-29 23:59 | XMS RPT_ITS | CCD ---
Author Organization [facility] Care Team Providers Care Fitness Assistant Name Role Phone Lynsey [phone], Alex [phone] C onsulting Unavailable KWON DO, KAY K [...] Unavailable SOZEN, RAMSEY Attending Unavailable DR MAXWELL OGMEZ MD Primary Care Physician [phone] CHEKO MCCLELLAND Admitting Unavailable CHEKO MCCLELLAND Attending Unavailable TANESHA HILTON Attending Unavailable TANESHA HILTON Admitting Unavailable JAYDE YEAGER Attending Unavailable HIWOT HUDSON Attending UnavailSUNIL Saeed MD Primary Care Physician MARTINEZ NÚÑEZ MD Primary Care Physician [facility], KIRSTEN Primary Care Physician WILTON AN, MARTINEZ Bautista Primary Care Unavailable LIVIER AN, SUNIL Admitting Unavailable JAYLA AN, LONG Attending Unavailable WILTON AN, MARTINEZ Bautista Attending Unavailable WILTON AN, MARTINEZ Bautista Primary Care Unavailable WILTON AN, MARTINEZ Bautista Attending Unavailable WILTON AN, MARTINEZ Bautista Primary Care Unavailable WILTON AN, MARTINEZ Bautista Attending Unavailable WILTON AN, MARTINEZ Bautista Primary Care Unavailable [facility], OSMAN Attending Unavailhieu NÚÑEZ MD, MARTINEZ Bautista Primary Care Unavailable [facility], KIRSTEN Attending Unavailabl e [facility], KIRSTEN Primary Care Unavailabl e LIVIER AN, SUNIL Attending Unavailable WILTON AN, MARTINEZ Bautista Primary Care Unavailable JAYLA AN, LONG Attending Unavailable WILTON AN, MARTINEZ Bautista Primary Care Unavailable JAYLA AN, LONG Attending Unavailable WILTON AN, MARTINEZ Bautista Primary Care Unavailable [facility], KIRSTEN Attending Unavailabl e [facility], KIRSTEN Primary Care Unavailabl e RAMA AVALOS Referring Unavailab CARA Morrison Attending Unavailable NO PRIMARY CAREMD Primary Care Unavailable RAAM AVALOS Referring Unavailab CARA Morrison Attending Unavailable [...] Physician, No Primary Primary Care Unava ilable [place] SUPERVISORY LIFEGUARD, Remedios Attending Unavailable Care Physician, No Primary Referring Unava ilable Care Physician, No Primary Primary Care Unava ilable Sanchez, Geraldine Referring Unavailable Sanchez, Geraldine Attending Unavailable Vande Velde, Rama Referring Unavailabl e Vande Velde, Rama Attending Unavailabl e Care Physician, No Primary Primary Care Unava ilable Antonio, [place] Consulting Unavailable Care Physician, No Primary Primary Care Unava ilable [place] SUPERVISORY LIFEGUARD, Remedios Attending Unavailable GardnerMendez Attending Unavailable Care Physician, No Primary Primary Care Unava ilable [place] SUPERVISORY LIFEGUARD, Remedios Attending Unavailable Care Physician, No Primary Primary Care Unava ilable Jose SUPERVISORY LIFEGUARD, Remedios Referring Unavailable Care Physician, No Primary Primary Care Unava ilable Marcanthony, Geraldine Referring Unavailable Marcanthony, Geraldine Attending Unavailable Care Physician, No Primary Primary Care Unava ilable Damari Mcdonough Referring Unavailable Damari Mcdonough Attending Unavailable Jose SUPERVISORY LIFEGUARD, Remedios Attending Unavailable Care Physician, No Primary Primary Care Unava ilable [place] SUPERVISORY LIFEGUARD, Remedios Referring Unavailable Jose SUPERVISORY LIFEGUARD, Remedios Attending Unavailable Care Physician, No Primary Primary Care Unava ilable Jose SUPERVISORY LIFEGUARD, Remedios Referring Unavailable Care Physician, No Primary Primary Care Unava ilable Care Physician, No Primary Referring Unava ilable Geraldine Bradford Attending Unavailable Allergies Allergy Classification Reported Allergen(s) Allergy Type Date of Onset Reaction(s) Facility (1 source) Escitalopram Drug Allergy [facility] Repository (11 sources) Citalopram; Translations: [CITALOPRAM HYDROBROMIDE] Drug Allergy 4 Other: See Comments [facility] Work Phone: (11 sources) Escitalopram; Translations: [ESCITALOPRAM] Drug Allergy 1 Other: See Comments [facility] Work Phone: (15 sources) Citalopram; Translations: [citalopram] Drug Allergy Suicidal ideation [facility] (1 source) Citalopram Drug Allergy 5 [facility] Repository (1 source) Escitalopram Drug Allergy [facility] Repository Medications Current Medications Medication Drug Class(es) Dates Sig (Normalized) Sig (Original) acetaminophen 500 mg oral tablet (1 source) Start: 03-31-2023 End: 04-28-2023 Tylenol Extra Strength 500 mg oral tablet Dose : 500 mg = 1 tab(s), Oral, q4h, X 14 day(s), # 30 tab(s), 1 Refill(s), 04/28/23 11:38:00 EDT, Pharmacy: [facility]/pharmacy #[id number], 155, cm, 03/30/23 7:49:00 EDT, Height Start Date: 03/31/23 Stop Date: 04/28/23 Status: Ordered benzocaine 200 mg/ml topical spray (1 source) Standardized Chemical Allergen Start: 03-31-2023 End: 04-14-2023 apply 1 dose topically four times daily Americaine 20% topical spray Dose = 1 herlinda, Topical, QID, X 14 day(s), # 1 EA, 0 Refill(s), Pharmacy: [facility]/pharmacy #[id number], 155, cm, 03/30/23 7:49:00 EDT, Height [...] 0 Refill(s), 02/25/24 8:31:00 AM EDT, Pharmacy: [id number], 155, cm, 02/18/24 7:59:00 EDT, Height, kg, 02/18/24 7:59:00 EDT, Dosing Weight Start Date: 02/18/24 Stop Date: 02/25/24 Status: Ordered diclofenac sodium 75 mg delayed release oral tablet (1 source) Nonsteroidal Anti-inflammatory Drug Start: 02-18-2024 End: 03-03-2024 diclofenac sodium 75 mg oral delayed release tablet Dose : 75 mg = 1 tab(s), Oral, BID, # 28 tab(s), 0 Refill(s), Pharmacy: [facility] #[id number], 155, cm, 02/18/24 7:59:00 EDT, Height, [...] tab(s), 0 Refill(s), 04/14/23 11:38:00 EDT, Pharmacy: [facility]/pharmacy #[id number], 155, cm, 03/30/23 7:49:00 EDT, Height Start Date: 03/31/23 Stop Date: 04/14/23 Status: Ordered magnesium oxide 400 mg oral tablet (3 sources) Start: 01-11-2023 End: 02-10-2023 magnesium oxide 400 mg oral tablet Dose : 400 mg = 1 tab(s), Oral, qHS, X 30 day(s), # 30 tab(s), 0 Refill(s), 02/10/23 15:17:00 EDT, Pharmacy: [facility]/pharmacy #[id number], 155, , 01/11/23 15:08:00 EDT, Height [...] tylenol, # 12 tab(s), 0 Refill(s), Pharmacy: [facility]/pharmacy #[id number], 155, cm, 01/11/23 15:08:00 EDT, Height [...] on above: Take 1 capsule by mo [facility] daily with breakfast. AD oral tablet (10 sources) Start: 01-26-2023 take 1 tablet by mouth once daily AD oral tablet Dose = 1 tab(s), Oral, Daily, # 30 tab(s), 0 Refill(s) Start Date: 01/26/23 Status: Ordered Guqpgegm-Lyk-Pf-Fa () 1 mg Tablet (2 sources) Start: 08-09-2022 take 1 tablet by mouth once daily Fhdxvudb-Vib-Qo-Fa () 1 mg Tablet Active 1 TABLET PO DAILY August 08, 2022 11:00pm Start: 08-09-2022 [facility] Cnzebrsb-Qpd-Dh-Fa () 1 mg Tablet Active 1 TABLET [...] qDay, # 30 tab(s), 11 Refill(s), [id number], Depression, major, recurrent, moderate, 154, cm, 07/20/23 7:49:00 EDT, Height, kg, 07/20/23 7:49:00 EDT, Dosing Weight Start Date: 08/16/23 Stop Date: 08/10/24 Status: Ordered Vitamin B2 100 mg oral tablet (8 sources) Start: 02-04-2023 take 1 tablet by mouth once daily Vitamin B2 100 mg oral tablet 1 tab(s), Oral, qDay, # 30 tab(s), 2 Refill(s), Pharmacy: [id number], 155, cm, 02/01/23 13:50:00 EDT, Height, kg, 01/26/23 0:59:00 EDT, Dosing Weight Start Date: 02/04/23 Status: Ordered Start: 01-11-2023 Vitamin B2 100 mg oral tablet Dose : 100 mg = 1 tab(s), Oral, Daily, # 30 tab(s), 2 Refill(s), Pharmacy: [facility]/pharmacy #[id number], 155, cm, 01/11/23 15:08:00 EDT, Height [...] (FLONASE) 50 mcg/actuation nasal spray Use 1 Mcintosh in each nostril once daily. 1 Bottle 2 07/10/2014 08/19/2022 Discontinued Comment on above: Use 1 Mcintosh in each nostril once daily. loratadine 10 [...] (3 sources) Congenital vesicoureterorenal reflux; Translations: [Congenital tlbfny-jysudcv-lvraa reflux] Onset: 5 Chronic Headache; including migraine [...] Absolute Lymph 1.09 X10 3/uL Normal 0.83-4.51 [facility] Comment on above: Performed By: #### L 100.0100, L500.4050 #### [facility] [address] [place], [place], [id number] Absolute Neut 6.9 X10 3/uL Normal 2.0-7.7 [facility] Comment on above: Performed By: #### L 100.0100, L500.4050 #### [facility] [address] [place], [address] Basophils/100 WBC (Bld) 0.1 % Normal 0-1 [facility] Comment on above: Performed By: #### L 100.0100, L500.4050 #### [facility] [address] [place], [address] Eosinophils/100 WBC (Bld) 0.2 % Normal 0-5 [facility] Comment on above: Performed By: #### L 100.0100, L500.4050 #### [facility] [address] [place], [address] Erythrocyte distribution width (RBC) [Ratio] 14.1 % Normal 11.6-14.6 [facility] Comment on above: Performed By: #### L 100.0100, L500.4050 #### [facility] [address] [place], [address] Hematocrit (Bld) [Volume fraction] 31.9 % Low 37-47 [facility] Comment on above: Performed By: #### L 100.0100, L500.4050 #### [facility] [address] [place], [address] Hemoglobin (Bld) [Mass/Vol] 11.6 g/dL Low 12.0-15.0 [facility] Comment on above: Performed By: #### L 100.0100, L500.4050 #### [facility] [address] [place], [address] IG% 0.600 Normal 0.0-0.9 [facility] Comment on above: Result Comment: IG% - Immature Granulocytes (promyelocytes, myelocytes and metamyelocytes) > 1% indicates that a LEFT SHIFT is Present. Performed By: #### L 100.0100, L500.4050 #### [facility] [address] [place], [address] Lymphocytes/100 WBC (Bld) 12.8 % Low 19-41 [facility] Comment on above: Performed By: #### L 100.0100, L500.4050 #### [facility] [address] [place], [address] MCH (RBC) [Entitic mass] 32.6 pg High 27.0-32.0 [facility] Comment on above: Performed By: #### L 100.0100, L500.4050 #### [facility] [address] [place], [address] MCHC (RBC) [Mass/Vol] 36.4 g/dL High 32-36 [facility] Comment on above: Performed By: #### L 100.0100, L500.4050 #### [facility] [address] [place], [address] MCV (RBC) [Entitic vol] 89.6 fL Normal 81-99 [facility] Comment on above: Performed By: #### L 100.0100, L500.4050 #### [facility] [address] [place], [address] Monocytes/100 WBC (Bld) 4.7 % Normal 0-10 [facility] Comment on above: Performed By: #### L 100.0100, L500.4050 #### [facility] [address] [place], [address] Neutrophils/100 WBC (Bld) 81.6 % High 47-70 [facility] Comment on above: Performed By: #### L 100.0100, L500.4050 #### [facility] [address] [place], [address] Nucleated RBC (Bld) [#/Vol] 0 10*3/uL Normal 0-5 [facility] Comment on above: Performed By: #### L 100.0100, L500.4050 #### [facility] [address] [place], [address] Platelet mean volume (Bld) [Entitic vol] 10.1 fL Normal 6.2-12.0 [facility] Comment on above: Performed By: #### L 100.0100, L500.4050 #### [facility] [address] [place], [address] Platelets (Bld) [#/Vol] 180 10*3/uL Normal 150-450 [facility] Comment on above: Performed By: #### L 100.0100, L500.4050 #### [facility] [address] [place], [address] RBC (Bld) [#/Vol] 3.56 10*6/uL Low 4.2-5.[address] [facility] Comment on above: Performed By: #### L 100.0100, L500.4050 #### [facility] [address] [place], [address] RDW SD 45.9 fl High 35.1-43.9 [facility] Comment on above: Performed By: #### L 100.0100, L500.4050 #### [facility] [address] [place], [address] WBC (Bld) [#/Vol] 8.5 10*3/uL Normal 4.4-11.0 [facility] Comment on above: Performed By: #### L 100.0100, L500.4050 #### [facility] [address] [place], [address] Comprehensive Metabolic Prof [facility] 07-09-2025 Albumin [Mass/Vol] 3.9 g/dL Normal 3.5-5.0 [facility] Comment on above: Performed By: #### L 100.0100, L500.4050 #### [facility] [address] [place], [address] Albumin/Globulin [Mass ratio] 1.4 {ratio} Normal 0.9-2.4 [facility] Comment on above: Performed By: #### L 100.0100, L500.4050 #### [facility] [address] [place], [address] ALK PHOS 65 U/L Normal 35-104 [facility] Comment on above: Performed By: #### L 100.0100, L500.4050 #### [facility] [address] [place], [address] ALT [Catalytic activity/Vol] 20 U/L Normal <=34 [facility] Comment on above: Performed By: #### L 100.0100, L500.4050 #### [facility] [address] [place], [address] AST [Catalytic activity/Vol] 23 U/L Normal <=31 [facility] Comment on above: Performed By: #### L 100.0100, L500.4050 #### [facility] [address] [place], [address] Bilirubin [Mass/Vol] 0.35 mg/dL Normal 0.00-1.30 [facility] Comment on above: Performed By: #### L 100.0100, L500.4050 #### [facility] [address] [place], [address] BUN/CRE 10.5 RATIO Normal 10-20 [facility] Comment on above: Performed By: #### L 100.0100, L500.4050 #### [facility] [address] [place], [address] Calcium [Mass/Vol] 9.1 mg/dL Normal 7.6-11.0 [facility] Comment on above: Performed By: #### L 100.0100, L500.4050 #### [facility] [address] [place], [address] Chloride [Moles/Vol] 105 mmol/L Normal 98-108 [facility] Comment on above: Performed By: #### L 100.0100, L500.4050 #### [facility] [address] [place], [address] CO2 [Moles/Vol] 18.7 mmol/L Low 21.0-32.0 [facility] Comment on above: Performed By: #### L 100.0100, L500.4050 #### [facility] [address] [place], [address] Creatinine [Mass/Vol] 0.60 mg/dL Low 0.70-1.20 [facility] Comment on above: Performed By: #### L 100.0100, L500.4050 #### [facility] [address] [place], [address] GAP 14 Normal 5-15 [facility] Comment on above: Performed By: #### L 100.0100, L500.4050 #### [facility] [address] [place], [address] GFR/1.73 sq M.predicted among non-blacks MDRD (S/P/Bld) [Vol rate/Area] 128 mL/min/{1.73_m2} Normal >60 [facility] Comment on above: Result Comment: mL/m in/1.73m2 CKD-EPI Creatinine Equation (2020) Performed By: #### L 100.0100, L500.4050 #### [facility] [address] [place], [address] Globulin (S) [Mass/Vol] 2.8 g/dL Normal 2.2-4.2 [facility] Comment on above: Performed By: #### L 100.0100, L500.4050 #### [facility] [address] [place], [address] Glucose [Mass/Vol] 91 mg/dL Normal 70-99 [facility] Comment on above: Performed By: #### L 100.0100, L500.4050 #### [facility] [address] [place], [address] Potassium [Moles/Vol] 3.7 mmol/L Normal 3.3-5.1 [facility] Comment on above: Performed By: #### L 100.0100, L500.4050 #### [facility] [address] [place], [address] Sodium [Moles/Vol] 137 mmol/L Normal 133-145 [facility] Comment on above: Performed By: #### L 100.0100, L500.4050 #### [facility] [address] [place], [address] T PROT 6.7 g/dL Normal 5.9-8.4 [facility] Comment on above: Performed By: #### L 100.0100, L500.4050 #### [facility] [address] [place], [address] Urea nitrogen [Mass/Vol] 6 mg/dL Normal 4-19 [facility] Comment on above: Performed By: #### L 100.0100, L500.4050 #### [facility] [address] [place], [address] Strategy Manager Office Visit Reporton 07-09-2025 Strategy Manager Office Visit Report [facility]'[address], [address] [place] [address] OFFICE VISIT Date of Service: 07/09/25 MR#: [id number] Acct: [id number] Name: LUZ OLIVEIRA Rep #: 36 [...] Visit Reasons: DISCUSS CONCERNS * OK PER Canvas Worker Required: No Is patient in pain?: No Allergies escitalopram (From Lexapro) Adverse Reaction (Severe, Verified 07/09/25 09:30) SUICIDAL citalopram hydrobromide (From Celexa) Adverse Reaction (Verified 07/09/25 09:30) Other Medications ???Medication ???Instructions ???Recorded ???Confirmed ???Type ryxuajhb-wfa-Ok-FA 1 mg 1 tab PO DAILY 08/09/22 [...] hypertension Obesity affecting 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 yorxfa-ycdijbt-hwaau reflux Surgical History [place] teeth removed Family History Grandmother Breast cancer Brain cancer Grandfather CVA (cerebral vascular accident) Mother Diabetes Heart failure MRSA carrier History of recurrent miscarriages Father Hypertension Social History adopted: No household members: spouse and children housing: house number of children: 1 current occupation: [employer] current occupational exposures/hazards: No pets and [...] 3-4 times per week duration: 15-30 minutes/day kalpana/religious: Latter-Day seatbelt use: always do you feel safe at home: Yes 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 Date Name GA/Weeks Outcome Route Bth Weight Gen Labor Lgth Anesthesia Del Locatn Provider FOB 10/11/18 Chemical 4 spontaneous 03/30/23 Amanda 39 live - full term vacuum 6lbs 1oz Female epidural [facility] Delivery Date: 03/30/23 Last Updated by: [...] Visit Note (more content not included)... Normal [facility] Protein+Creatinine Ratio,Uri neon 07-09-2025 PROT:CRE RATIO 283 mg/g CRE High 0-200 [facility] Comment on above: Performed By: #### L 501.0900 #### [facility] [address] [place], [address] Protein (U) [Mass/Vol] 73.9 mg/dL High 0.0-12.0 [facility] Comment on above: Performed By: #### L 501.0900 #### [facility] [address] [place], [address] UR CREAT 261.00 mg/dL High 28.00-217.00 [facility] Comment on above: Performed By: #### L 501.0900 #### [facility] [address] [place], [address] Wound Cultureon 07-06-2025 WC Lesion of abdomen Possible skin contamination, further Identification and sensitivity will be performed only by physician's request. Coag Negative Staph Amount Growth 2+ Normal [facility] Comment on above: Performed By: #### L 100.0100 #### [facility] [address] [place], [address] Gram Stainon 07-04-2025 GS Lesion of abdomen Gram Stain 1+ White Blood Cells No organisms seen Normal [facility] Comment on above: Performed By: #### L 100.0100 #### [facility] [address] [place], [address] Strategy Manager Office Visit Reporton 07-03-2025 Strategy Manager Office Visit Report [facility] [address], [address] [place] [address] OFFICE VISIT Date of Service: 07/03/25 MR#: [id number] Acct: [id number] Name: LUZ OLIVEIRA Rep #: [id number] : 2000 Provider: JARAD moctezuma Age/Sex: 24/F Location: [facility] Status: Signed Intake Vital Signs 05/07/25 14:40 06/06/25 13:39 07/03/25 15:35 Height 5 ft 1 in 5 ft 1 in 5 ft 1 in Weight: 185 lb 4 oz BMI 34.9 BP 109/74 Intake Visit Reasons: 21wk ob Chief Complaint: 21 Week OB Canvas Worker Required: No Is patient in pain?: No Allergies escitalopram (From Lexapro) Adverse Reaction (Severe, Verified 07/03/25 15:38) SUICIDAL citalopram hydrobromide (From Celexa) Adverse Reaction (Verified 07/03/25 15:38) Other Medications ???Medication ???Instructions ???Recorded ???Confirmed ???Type atsfbkni-bve-El-FA 1 mg 1 tab PO DAILY 08/09/22 [...] hypertension Obesity affecting 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 dgcczv-lskcxwi-stmay reflux Surgical History [place] teeth removed Family History Grandmother Breast cancer Brain cancer Grandfather CVA (cerebral vascular accident) Mother Diabetes Heart failure MRSA carrier History of recurrent miscarriages Father Hypertension Social History adopted: No household members: spouse and children housing: house number of children: 1 current occupation: [employer] current occupational exposures/hazards: No pets and [...] 3-4 times per week duration: 15-30 minutes/day kalpana/religious: Latter-Day seatbelt use: always do you feel safe at home: Yes 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 Date Name GA/Weeks Outcome Route Bth Weight Infant Gen Labor Lgth Anesthesia Del Locatn Provider FOB 10/11/18 Chemical 4 spontaneous 03/30/23 Amanda 39 live - full term vacuum 6lbs 1oz [facility]: 03/30/23 Last Updated by: [...] ??-???- 9w (more content not included)... 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 Frequent UTI 06/20/2025 - [...] hemorrhage, stillbirth, anomalies, delivery and postcesarean complications. Irene of medicine recommend weight gain in : [...] findings. Ame (more content not included)... Normal [facility] Strategy Manager Office Visit Reporton 06-06-2025 Strategy Manager Office Visit Report [facility]'s [address], [address] [place] [address] OFFICE VISIT Date of Service: 06/06/25 MR#: [id number] Acct: [id number] Name: LUZ OLIVEIRA Rep #: [id number] : 2000 Provider: Dr. Rama Trammell DO Age/Sex: 24/F Location: [facility] Status: Signed Intake Vital Signs 04/09/25 10:40 05/30/25 09:28 06/06/25 13:37 06/06/25 13:39 Height 5 ft 1 in 5 ft 1 in 5 ft 1 in 5 ft 1 in Weight: 183 lb 5 oz BMI 34.6 BP 112/68 Intake Visit Reasons: 17 wk ob Canvas Worker Required: No Is patient in pain?: No Allergies escitalopram (From Lexapro) Adverse Reaction (Severe, Verified 06/06/25 13:36) SUICIDAL citalopram hydrobromide (From Celexa) Adverse Reaction (Verified 06/06/25 13:36) Other Medications ???Medication ???Instructions ???Recorded ???Confirmed ???Type pfmlaviu-pco-Rf-FA 1 mg 1 tab PO DAILY 08/09/22 06/06/25 H istory tablet metoclopramide HCl 5 mg tablet 5 mg PO QACHS #60 tabs 04/19/25 Rx (Reglan) Last Menstrual Period: 02/02/25 Zika: Zika virus screening: Negative : No PFSH PFSH Medical History Fatty liver Renal atrophy, left Elevated liver enzymes Heart palpitations History of gestational hypertension Obesity affecting 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 qtntcl-okiqirg-xaipk reflux Surgical History [place] teeth removed Family History Grandmother Breast cancer Brain cancer Grandfather CVA (cerebral vascular accident) Mother Diabetes Heart failure MRSA carrier History of recurrent miscarriages Father Hypertension Social History adopted: No household members: spouse and children housing: house number of children: 1 current occupation: [employer] current occupational exposures/hazards: No pets and [...] 3-4 times per week duration: 15-30 minutes/day kalpana/religious: Latter-Day seatbelt use: always do you feel safe at home: Yes 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 Date Name GA/Weeks Outcome Route Bth Weight Gen Labor Lgth Anesthesia Del Locatn Provider FOB 10/11/18 Chemical 4 spontaneous 03/30/23 Amanda 39 live - full term vacuum 6lbs 1oz Female epidural [facility] Delivery Date: 03/30/23 Last Updated by: [...] ??-???- Negat (more content not included)... Normal [facility] Urine Cultureon 06-02-2025 URC #1,2 Gram positive francheska suggestive of a diphtheroid. Susceptibility not normally performed on this organism Urine Culture Urine Culture Urine Culture Corynebacterium amycolatum [place] Count 11,000-25,000 Corynebacterium minutissimum Corynebacterium minutissimum Normal [facility] Comment on above: Performed By: #### M 100.678, M100.2200, L400.0001 #### [facility] [address] [place], [place], [address] Cardiology Visit Reporton Cardiology Visit Report [facility] [address] [place] [address] OFFICE VISIT Date of Service: 05/30/25 MR#: [id number] Acct: [id number] Name: LUZ OLIVEIRA Rep #: 63 [...] Source Monitor Intake Visit Reasons: PALP (MONSTER) Canvas Worker Required: No Accompanied by: Self Is patient in pain?: No Allergies escitalopram (From Lexapro) Adverse Reaction (Severe, Verified 05/30/25 09:34) SUICIDAL citalopram hydrobromide (From Celexa) Adverse Reaction (Verified 05/30/25 09:34) Other Medications ???Medication ???Instructions ???Recorded ???Confirmed ???Type cpqropwp-gbb-Ig-FA 1 mg 1 tab PO DAILY 08/09/22 05/30/25 H istory tablet metoclopramide HCl 5 mg tablet 5 mg PO QACHS #60 tabs 04/19/25 Rx (Reglan) PFSH Medical History Fatty liver Renal atrophy, left Elevated liver enzymes Heart palpitations History of gestational hypertension Obesity affecting 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 duuzyq-anxzdwq-wayps reflux Surgical History [place] teeth removed Family History Grandmother Breast cancer Brain cancer Grandfather CVA (cerebral vascular accident) Mother Diabetes Heart failure MRSA carrier History of recurrent miscarriages Father Hypertension Social History adopted: No household members: spouse and children housing: house number of children: 1 current occupation: [employer] current occupational exposures/hazards: No pets and [...] 3-4 times per week duration: 15-30 minutes/day kalpana/religious: Latter-Day seatbelt use: always do you feel safe at home: Yes 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 Normal [facility] Comprehensive Metabolic Prof ilon 05-30-2025 Albumin [Mass/Vol] 4.0 g/dL Normal 3.5-5.0 [facility] Comment on above: Performed By: #### L 100.0100, L500.4050 #### [facility] [address] [place], [address] Albumin/Globulin [Mass ratio] 1.5 {ratio} Normal 0.9-2.4 [facility] Comment on above: Performed By: #### L 100.0100, L500.4050 #### [facility] [address] [place], [address] ALK PHOS 56 U/L Normal 35-104 [facility] Comment on above: Performed By: #### L 100.0100, L500.4050 #### [facility] [address] [place], [address] ALT [Catalytic activity/Vol] 35 U/L Normal <=34 [facility] Comment on above: Performed By: #### L 100.0100, L500.4050 #### [facility] [address] [place], [address] AST [Catalytic activity/Vol] 29 U/L Normal <=31 [facility] Comment on above: Performed By: #### L 100.0100, L500.4050 #### [facility] [address] [place], [address] Bilirubin [Mass/Vol] 0.36 mg/dL Normal 0.00-1.30 [facility] Comment on above: Performed By: #### L 100.0100, L500.4050 #### [facility] [address] [place], [address] BUN/CRE 10.5 RATIO Normal 10-20 [facility] Comment on above: Performed By: #### L 100.0100, L500.4050 #### [facility] [address] [place], [address] Calcium [Mass/Vol] 9.3 mg/dL Normal 7.6-11.0 [facility] Comment on above: Performed By: #### L 100.0100, L500.4050 #### [facility] [address] [place], [address] Chloride [Moles/Vol] 104 mmol/L Normal 98-108 [facility] Comment on above: Performed By: #### L 100.0100, L500.4050 #### [facility] [address] [place], [address] CO2 [Moles/Vol] 20.0 mmol/L Low 21.0-32.0 [facility] Comment on above: Performed By: #### L 100.0100, L500.4050 #### [facility] [address] [place], [address] Creatinine [Mass/Vol] 0.57 mg/dL Low 0.70-1.20 [facility] Comment on above: Performed By: #### L 100.0100, L500.4050 #### [facility] [address] [place], [address] GAP 14 Normal 5-15 [facility] Comment on above: Performed By: #### L 100.0100, L500.4050 #### [facility] [address] [place], [address] GFR/1.73 sq M.predicted among non-blacks MDRD (S/P/Bld) [Vol rate/Area] 129 mL/min/{1.73_m2} Normal >60 [facility] Comment on above: Result Comment: mL/m in/1.73m2 CKD-EPI Creatinine Equation (2020) Performed By: #### L 100.0100, L500.4050 #### [facility] [address] [place], [address] Globulin (S) [Mass/Vol] 2.6 g/dL Normal 2.2-4.2 [facility] Comment on above: Performed By: #### L 100.0100, L500.4050 #### [facility] [address] [place], [address] Glucose [Mass/Vol] 92 mg/dL Normal 70-99 [facility] Comment on above: Performed By: #### L 100.0100, L500.4050 #### [facility] [address] [place], [address] Potassium [Moles/Vol] 3.8 mmol/L Normal 3.3-5.1 [facility] Comment on above: Performed By: #### L 100.0100, L500.4050 #### [facility] [address] [place], [address] Sodium [Moles/Vol] 138 mmol/L Normal 133-145 [facility] Comment on above: Performed By: #### L 100.0100, L500.4050 #### [facility] [address] [place], [address] T PROT 6.6 g/dL Normal 5.9-8.4 [facility] Comment on above: Performed By: #### L 100.0100, L500.4050 #### [facility] [address] [place], [address] Urea nitrogen [Mass/Vol] 6 mg/dL Normal 4-19 [facility] Comment on above: Performed By: #### L 100.0100, L500.4050 #### [facility] [address] [place], [address] Thyroid Stim Hormone (TSH)on 05-30-2025 TSH 0.631 uIU/mL Normal 0.300-4.200 [facility] Comment on above: Performed By: #### L 501.9520 #### [facility] [address] [place], [address] CBC W/Diff, Automatedon Absolute Lymph 1.81 X10 3/uL Normal 0.83-4.51 [facility] Comment on above: Performed By: #### L 100.0100, L500.4050 #### [facility] [address] [place], [address] Absolute Neut 5.3 X10 3/uL Normal 2.0-7.7 [facility] Comment on above: Performed By: #### L 100.0100, L500.4050 #### [facility] [address] [place], [address] Basophils/100 WBC (Bld) 0.1 % Normal 0-1 [facility] Comment on above: Performed By: #### L 100.0100, L500.4050 #### [facility] [address] [place], [address] Eosinophils/100 WBC (Bld) 0.3 % Normal 0-5 [facility] Comment on above: Performed By: #### L 100.0100, L500.4050 #### [facility] [address] [place], [address] Erythrocyte distribution width (RBC) [Ratio] 12.9 % Normal 11.6-14.6 [facility] Comment on above: Performed By: #### L 100.0100, L500.4050 #### [facility] [address] [place], [address] Hematocrit (Bld) [Volume fraction] 36.8 % Low 37-47 [facility] Comment on above: Performed By: #### L 100.0100, L500.4050 #### [facility] [address] [place], [address] Hemoglobin (Bld) [Mass/Vol] 13.0 g/dL Normal 12.0-15.0 [facility] Comment on above: Performed By: #### L 100.0100, L500.4050 #### [facility] [address] [place], [address] IG% 0.400 Normal 0.0-0.9 [facility] Comment on above: Result Comment: IG% - Immature Granulocytes (promyelocytes, myelocytes and metamyelocytes) > 1% indicates that a LEFT SHIFT is Present. Performed By: #### L 100.0100, L500.4050 #### [facility] [address] [place], [address] Lymphocytes/100 WBC (Bld) 23.5 % Normal 19-41 [facility] Comment on above: Performed By: #### L 100.0100, L500.4050 #### [facility] [address] [place], [address] MCH (RBC) [Entitic mass] 31.0 pg Normal 27.0-32.0 [facility] Comment on above: Performed By: #### L 100.0100, L500.4050 #### [facility] [address] [place], [address] MCHC (RBC) [Mass/Vol] 35.3 g/dL Normal 32-36 [facility] Comment on above: Performed By: #### L 100.0100, L500.4050 #### [facility] [address] [place], [address] MCV (RBC) [Entitic vol] 87.6 fL Normal 81-99 [facility] Comment on above: Performed By: #### L 100.0100, L500.4050 #### [facility] [address] [place], [address] Monocytes/100 WBC (Bld) 6.7 % Normal 0-10 [facility] Comment on above: Performed By: #### L 100.0100, L500.4050 #### [facility] [address] [place], [address] Neutrophils/100 WBC (Bld) 69.0 % Normal 47-70 [facility] Comment on above: Performed By: #### L 100.0100, L500.4050 #### [facility] [address] [place], [address] Nucleated RBC (Bld) [#/Vol] 0 10*3/uL Normal 0-5 [facility] Comment on above: Performed By: #### L 100.0100, L500.4050 #### [facility] [address] [place], [address] Platelet mean volume (Bld) [Entitic vol] 10.3 fL Normal 6.2-12.0 [facility] Comment on above: Performed By: #### L 100.0100, L500.4050 #### [facility] [address] [place], [address] Platelets (Bld) [#/Vol] 198 10*3/uL Normal 150-450 [facility] Comment on above: Performed By: #### L 100.0100, L500.4050 #### [facility] [address] [place], [address] RBC (Bld) [#/Vol] 4.20 10*6/uL Normal 4.2-5.[address] [facility] Comment on above: Performed By: #### L 100.0100, L500.4050 #### [facility] [address] [place], [address] RDW SD 39.9 fl Normal 35.1-43.9 [facility] Comment on above: Performed By: #### L 100.0100, L500.4050 #### [facility] [address] [place], [address] WBC (Bld) [#/Vol] 7.7 10*3/uL Normal 4.4-11.0 [facility] Comment on above: Performed By: #### L 100.0100, L500.4050 #### [facility] [address] [place], [address] Comprehensive Metabolic Prof [facility] 05-14-2025 Albumin [Mass/Vol] 4.2 g/dL Normal 3.5-5.0 [facility] Comment on above: Performed By: #### L 100.0100, L500.4050 #### [facility] [address] [place], [address] Albumin/Globulin [Mass ratio] 1.5 {ratio} Normal 0.9-2.4 [facility] Comment on above: Performed By: #### L 100.0100, L500.4050 #### [facility] [address] [place], [address] ALK PHOS 61 U/L Normal 35-104 [facility] Comment on above: Performed By: #### L 100.0100, L500.4050 #### [facility] [address] [place], [address] ALT [Catalytic activity/Vol] 47 U/L High <=34 [facility] Comment on above: Performed By: #### L 100.0100, L500.4050 #### [facility] [address] [place], [address] AST [Catalytic activity/Vol] 36 U/L High <=31 [facility] Comment on above: Performed By: #### L 100.0100, L500.4050 #### [facility] [address] [place], [address] Bilirubin [Mass/Vol] 0.52 mg/dL Normal 0.00-1.30 [facility] Comment on above: Performed By: #### L 100.0100, L500.4050 #### [facility] [address] [place], [address] BUN/CRE 10.7 RATIO Normal 10-20 [facility] Comment on above: Performed By: #### L 100.0100, L500.4050 #### [facility] [address] [place], [address] Calcium [Mass/Vol] 9.5 mg/dL Normal 7.6-11.0 [facility] Comment on above: Performed By: #### L 100.0100, L500.4050 #### [facility] [address] [place], [address] Chloride [Moles/Vol] 102 mmol/L Normal 98-108 [facility] Comment on above: Performed By: #### L 100.0100, L500.4050 #### [facility] [address] [place], [address] CO2 [Moles/Vol] 18.6 mmol/L Low 21.0-32.0 [facility] Comment on above: Performed By: #### L 100.0100, L500.4050 #### [facility] [address] [place], [address] Creatinine [Mass/Vol] 0.66 mg/dL Low 0.70-1.20 [facility] Comment on above: Performed By: #### L 100.0100, L500.4050 #### [facility] [address] [place], [address] GAP 16 High 5-15 [facility] Comment on above: Performed By: #### L 100.0100, L500.4050 #### [facility] [address] [place], [address] GFR/1.73 sq M.predicted among non-blacks MDRD (S/P/Bld) [Vol rate/Area] 125 mL/min/{1.73_m2} Normal >60 [facility] Comment on above: Result Comment: mL/m in/1.73m2 CKD-EPI Creatinine Equation (2020) Performed By: #### L 100.0100, L500.4050 #### [facility] [address] [place], [address] Globulin (S) [Mass/Vol] 2.8 g/dL Normal 2.2-4.2 [facility] Comment on above: Performed By: #### L 100.0100, L500.4050 #### [facility] [address] [place], [address] Glucose [Mass/Vol] 92 mg/dL Normal 70-99 [facility] Comment on above: Performed By: #### L 100.0100, L500.4050 #### [facility] [address] [place], [address] Potassium [Moles/Vol] 3.8 mmol/L Normal 3.3-5.1 [facility] Comment on above: Performed By: #### L 100.0100, L500.4050 #### [facility] [address] [place], [address] Sodium [Moles/Vol] 137 mmol/L Normal 133-145 [facility] Comment on above: Performed By: #### L 100.0100, L500.4050 #### [facility] [address] [place], [address] T PROT 7.0 g/dL Normal 5.9-8.4 [facility] Comment on above: Performed By: #### L 100.0100, L500.4050 #### [facility] [address] [place], [address] Urea nitrogen [Mass/Vol] 7 mg/dL Normal 4-19 [facility] Comment on above: Performed By: #### L 100.0100, L500.4050 #### [facility] [address] [place], [address] Strategy Manager Office Visit Reporton 05-14-2025 Strategy Manager Office Visit Report [facility] [address], [address] [place] [address] OFFICE VISIT Date of Service: 05/14/25 MR#: [id number] Acct: [id number] Name: LUZ OLIVEIRA Rep #: 34 : 2000 Provider: Dr. Rama Trammell DO Age/Sex: 24/F Location: [facility] Status: Signed Intake Vital Signs 05/07/25 14:40 05/14/25 14:48 05/14/25 14:48 Height 5 ft 1 in 5 ft 1 in 5 ft 1 in Weight: 185 lb 1 oz BMI 34.9 BP 100/52 L Intake Visit Reasons: 14wk OB, elevated liver enzymes cbc/cmp FU Canvas Worker Required: No Is patient in pain?: No Allergies escitalopram (From Lexapro) Adverse Reaction (Severe, Verified 05/14/25 14:48) SUICIDAL citalopram hydrobromide (From Celexa) Adverse Reaction (Verified 05/14/25 14:48) Other Medications ???Medication ???Instructions ???Recorded ???Confirmed ???Type cpqgsgeo-bvz-Ho-FA 1 mg 1 tab PO DAILY 08/09/22 05/14/25 H istory tablet metoclopramide HCl 5 mg tablet 5 mg PO QACHS #60 tabs 07/10/25 08 /04/25 Rx (Reglan) Last Menstrual Period: 02/02/25 Zika: Zika virus screening: Negative : No PFSH PFSH Medical History Congenital xctdwz-cogjwdk-bjeqg reflux Surgical History [place] teeth removed Family History Grandmother Breast cancer Brain cancer Grandfather CVA (cerebral vascular accident) Mother Diabetes Heart failure MRSA carrier History of recurrent miscarriages Father Hypertension Social History adopted: No household members: spouse and children housing: house number of children: 1 current occupation: [employer] current occupational exposures/hazards: No pets and [...] 3-4 times per week duration: 15-30 minutes/day kalpana/religious: Latter-Day seatbelt use: always do you feel safe at home: Yes 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 (more content not included)... Normal [facility] CBC W/Diff, Automatedon 07-2 Absolute Lymph 1.24 X10 3/uL Normal 0.83-4.51 [facility] Comment on above: Performed By: #### L 100.0100, L500.4050 #### [facility] [address] [place], [address] Absolute Neut 6.2 X10 3/uL Normal 2.0-7.7 [facility] Comment on above: Performed By: #### L 100.0100, L500.4050 #### [facility] [address] [place], [address] Basophils/100 WBC (Bld) 0.1 % Normal 0-1 [facility] Comment on above: Performed By: #### L 100.0100, L500.4050 #### [facility] [address] [place], [address] Eosinophils/100 WBC (Bld) 0.1 % Normal 0-5 [facility] Comment on above: Performed By: #### L 100.0100, L500.4050 #### [facility] [address] [place], [address] Erythrocyte distribution width (RBC) [Ratio] 12.5 % Normal 11.6-14.6 [facility] Comment on above: Performed By: #### L 100.0100, L500.4050 #### [facility] [address] [place], [address] Hematocrit (Bld) [Volume fraction] 36.6 % Low 37-47 [facility] Comment on above: Performed By: #### L 100.0100, L500.4050 #### [facility] [address] [place], [address] Hemoglobin (Bld) [Mass/Vol] 12.8 g/dL Normal 12.0-15.0 [facility] Comment on above: Performed By: #### L 100.0100, L500.4050 #### [facility] [address] [place], [address] IG% 0.500 Normal 0.0-0.9 [facility] Comment on above: Result Comment: IG% - Immature Granulocytes (promyelocytes, myelocytes and metamyelocytes) > 1% indicates that a LEFT SHIFT is Present. Performed By: #### L 100.0100, L500.4050 #### [facility] [address] [place], [address] Lymphocytes/100 WBC (Bld) 15.8 % Low 19-41 [facility] Comment on above: Performed By: #### L 100.0100, L500.4050 #### [facility] [address] [place], [address] MCH (RBC) [Entitic mass] 30.8 pg Normal 27.0-32.0 [facility] Comment on above: Performed By: #### L 100.0100, L500.4050 #### [facility] [address] [place], [address] MCHC (RBC) [Mass/Vol] 35.0 g/dL Normal 32-36 [facility] Comment on above: Performed By: #### L 100.0100, L500.4050 #### [facility] [address] [place], [address] MCV (RBC) [Entitic vol] 88.2 fL Normal 81-99 [facility] Comment on above: Performed By: #### L 100.0100, L500.4050 #### [facility] [address] [place], [address] Monocytes/100 WBC (Bld) 5.0 % Normal 0-10 [facility] Comment on above: Performed By: #### L 100.0100, L500.4050 #### [facility] [address] [place], [address] Neutrophils/100 WBC (Bld) 78.5 % High 47-70 [facility] Comment on above: Performed By: #### L 100.0100, L500.4050 #### [facility] [address] [place], [address] Nucleated RBC (Bld) [#/Vol] 0 10*3/uL Normal 0-5 [facility] Comment on above: Performed By: #### L 100.0100, L500.4050 #### [facility] [address] [place], [address] Platelet mean volume (Bld) [Entitic vol] 10.7 fL Normal 6.2-12.0 [facility] Comment on above: Performed By: #### L 100.0100, L500.4050 #### [facility] [address] [place], [address] Platelets (Bld) [#/Vol] 180 10*3/uL Normal 150-450 [facility] Comment on above: Performed By: #### L 100.0100, L500.4050 #### [facility] [address] [place], [address] RBC (Bld) [#/Vol] 4.15 10*6/uL Low 4.2-5.[address] [facility] Comment on above: Performed By: #### L 100.0100, L500.4050 #### [facility] [address] [place], [address] RDW SD 39.5 fl Normal 35.1-43.9 [facility] Comment on above: Performed By: #### L 100.0100, L500.4050 #### [facility] [address] [place], [address] WBC (Bld) [#/Vol] 7.8 10*3/uL Normal 4.4-11.0 [facility] [facility] Comment on above: Performed By: #### L 100.0100, L500.4050 #### [facility] [address] [place], [address] Comprehensive Metabolic Prof [facility] 05-07-2025 Albumin [Mass/Vol] 4.2 g/dL Normal 3.5-5.0 [facility] Comment on above: Performed By: #### L 100.0100, L500.4050 #### [facility] [address] [place], [address] Albumin/Globulin [Mass ratio] 1.6 {ratio} Normal 0.9-2.4 [facility] Comment on above: Performed By: #### L 100.0100, L500.4050 #### [facility] [address] [place], [address] ALK PHOS 62 U/L Normal 35-104 [facility] Comment on above: Performed By: #### L 100.0100, L500.4050 #### [facility] [address] [place], [address] ALT [Catalytic activity/Vol] 58 U/L High <=34 [facility] Comment on above: Performed By: #### L 100.0100, L500.4050 #### [facility] [address] [place], [address] AST [Catalytic activity/Vol] 43 U/L High <=31 [facility] Comment on above: Performed By: #### L 100.0100, L500.4050 #### [facility] [address] [place], [address] Bilirubin [Mass/Vol] 0.56 mg/dL Normal 0.00-1.30 [facility] Comment on above: Performed By: #### L 100.0100, L500.4050 #### [facility] [address] [place], [address] BUN/CRE 10.7 RATIO Normal 10-20 [facility] Comment on above: Performed By: #### L 100.0100, L500.4050 #### [facility] [address] [place], [address] Calcium [Mass/Vol] 9.5 mg/dL Normal 7.6-11.0 [facility] Comment on above: Performed By: #### L 100.0100, L500.4050 #### [facility] [address] [place], [address] Chloride [Moles/Vol] 102 mmol/L Normal 98-108 [facility] Comment on above: Performed By: #### L 100.0100, L500.4050 #### [facility] [address] [place], [address] CO2 [Moles/Vol] 17.7 mmol/L Low 21.0-32.0 [facility] Comment on above: Performed By: #### L 100.0100, L500.4050 #### [facility] [address] [place], [address] Creatinine [Mass/Vol] 0.59 mg/dL Low 0.70-1.20 [facility] Comment on above: Performed By: #### L 100.0100, L500.4050 #### [facility] [address] [place], [address] GAP 16 High 5-15 [facility] Comment on above: Performed By: #### L 100.0100, L500.4050 #### [facility] [address] [place], [address] GFR/1.73 sq M.predicted among non-blacks MDRD (S/P/Bld) [Vol rate/Area] 128 mL/min/{1.73_m2} Normal >60 [facility] Comment on above: Result Comment: mL/m in/1.73m2 CKD-EPI Creatinine Equation (2020) Performed By: #### L 100.0100, L500.4050 #### [facility] [address] [place], [address] Globulin (S) [Mass/Vol] 2.7 g/dL Normal 2.2-4.2 [facility] Comment on above: Performed By: #### L 100.0100, L500.4050 #### [facility] [address] [place], [address] Glucose [Mass/Vol] 110 mg/dL High 70-99 [facility] Comment on above: Performed By: #### L 100.0100, L500.4050 #### [facility] [address] [place], [address] Potassium [Moles/Vol] 3.7 mmol/L Normal 3.3-5.1 [facility] Comment on above: Performed By: #### L 100.0100, L500.4050 #### [facility] [address] [place], [address] Sodium [Moles/Vol] 135 mmol/L Normal 133-145 [facility] Comment on above: Performed By: #### L 100.0100, L500.4050 #### [facility] [address] [place], [address] T PROT 6.9 g/dL Normal 5.9-8.4 [facility] Comment on above: Performed By: #### L 100.0100, L500.4050 #### [facility] [address] [place], [address] Urea nitrogen [Mass/Vol] 6 mg/dL Normal 4-19 [facility] Comment on above: Performed By: #### L 100.0100, L500.4050 #### [facility] [address] [place], [address] HIVon 05-07-2025 HIV Non-Reactive Normal Nonreactive [facility] Comment on above: Result Comment: Non- Reactive Reactive Repeatedly reactive samples must be confirmed according to CDC recommended confirmatory algorithms. The subresults for either HIVAG or AHIV can be used as an aid in the selection of the confirmation algorithm for reactive samples. [facility]. Order the HIV antibody detection and differentiation: lc#[id number] Performed By: #### L 100.0100, L500.4050 #### [facility] [address] [place], [address] Hemoglobin A1con 05-07-2025 HbA1c (Bld) [Mass fraction] 5.1 % Normal <=5.6 [facility] Comment on above: Result Comment: Norm al < 5.7 % Prediabetic 5.7 - 6.4 % Diabetic >or= 6.5 % Please note range changes. Performed By: #### L 100.0100, L500.4050 #### [facility] [address] [place], [address] Hepatitis C Antibodyon 05-07 Hepatitis C Ab Non-Reactive Normal Nonreactive [facility] Comment on above: Result Comment: Reac tive: Presumptive evidence of antibodies to HCV. Follow CDC recommendations for supplemental testing. Non-Reactive: Antibodies to HCV were not detected; does not exclude the possibility of exposure to HCV Reactive Results are presumptive evidence of antibodies to HCV. Follow CDC recommendations for supplemental testing. Order confirmation testing: HCV Quant by PCR testing - HCVPCR #[id number] Non Reactive: < 0.8 Equivocal: >/= 0.8 to < 1.0 Reactive: >/= 1.0 The CDC requires that a reactive/equivocal HCV antibody result be sent out for confirmation. HCV Quant by PCR testing. Performed By: #### L 100.0100, L500.4050 #### [facility] [address] [place], [address] L3890.6102on 05-07-2025 HEP B Surf Ag Non-Reactive Normal Nonreactive [facility] Comment on above: Result Comment: Reac tive: Presumptive evidence of HBV. Repeatedly reactive samples must be confirmed using a neutralization test ([employer] HBsAg Confirmatory Test) Non-Reactive: HBsAg not detected; does not exclude the possibility of exposure to HBV Performed By: #### L 100.0100, L500.4050 #### [facility] [address] [place], [address] L509.4006on 05-07-2025 Rubella IgG REAC Normal Nonreactive [facility] Comment on above: Result Comment: Anti body Result: Interpretation Non-Reactive: Non-Immune Reactive: Immune The following results were obtained with the [employer] Rubella IgG assay. Results from assays of other manufacturers cannot be used interchangeably. Performed By: #### L 100.0100, L500.4050 #### [facility] [address] [facility] [place], [address] Strategy Manager Office Visit Reporton 05-07-2025 Strategy Manager Office Visit Report [facility]'s [address], [address] [place] [address] OFFICE VISIT Date of Service: 05/07/25 MR#: [id number] Acct: [id number] Name: LUZ OLIVEIRA Rep #: [id number] : 2000 Provider: JELENA Ordonez ams Age/Sex: 24/F Location: [facility] Status: Signed Intake Vital Signs 01/02/25 18:31 04/09/25 10:40 07/28/25 14:40 Height 5 ft 1 in 5 ft 1 in 5 ft 1 in Weight: 187 lb 4 oz BMI 35.4 BP 117/83 H Intake Visit Reasons: 13wk OB Chief Complaint: 13wk OB Canvas Worker Required: No Is patient in pain?: No Allergies escitalopram (From Lexapro) Adverse Reaction (Severe, Verified 05/07/25 14:39) SUICIDAL citalopram hydrobromide (From Celexa) Adverse Reaction (Verified 05/07/25 14:39) Other Medications ???Medication ???Instructions ???Recorded ???Confirmed ???Type jsusubdg-hun-Vd-FA 1 mg 1 tab PO DAILY 08/09/22 05/07/25 H istory tablet metoclopramide HCl 5 mg tablet 5 mg PO QACHS #60 tabs 04/19/25 Rx (Reglan) Last Menstrual Period: 02/02/25 : No PFSH PFSH Medical History Congenital fpqpac-kazoyrr-dfkny reflux Surgical History [place] teeth removed Family History Grandmother Breast cancer Brain cancer Grandfather CVA (cerebral vascular accident) Mother Diabetes Heart failure MRSA carrier History of recurrent miscarriages Father Hypertension Social History adopted: No household members: spouse and children housing: house number of children: 1 current occupation: [employer] current occupational exposures/hazards: No pets and [...] 3-4 times per week duration: 15-30 minutes/day kalpana/religious: Latter-Day seatbelt use: always do you feel safe at home: Yes 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 Normal [facility] Syphilis Antibodieson 2024 Syphilis Abs Non-Reactive Normal Nonreactive [facility] Comment on above: Performed By: #### L 100.0100, L500.4050 #### [facility] [address] [place], [id number] Type AND Screenon 05-07-2025 Ab SCREEN GEL Negative Normal [facility] Comment on above: Order Comment: PN Performed By: #### L 100.0100, L500.4050 #### [facility] [address] [place], [address] Chlamydia/GC CHICHO aptimaon CHLAMY,NUC ACID Negative Normal Negative [facility] Comment on above: Performed By: #### L 100.0100 #### [facility] [address] [place], [address] GC BY NUC ACID Negative Normal Negative [facility] Comment on above: Result Comment: Perf ormed at: =G - [facility] [address] [id number] Meat Seafood Associate: Rubi Snow MD, Phone: [phone] Performed By: #### L 100.0100 #### [facility] [address] [place], [address] PAP I-G w/rfx hrHPV-Aptimaon 04-12-2025 ADEQ Comment Normal . [facility] Comment on above: Order Comment: REDRA W. PREVIOUS SPECIMEN REJECTED DUE TO CLOTTED SPECIMEN. 01/02/251948 Result Comment: Sati sfactory for evaluation. Endocervical and/or squamous metaplastic cells (endocervical component) are present. Performed By: #### L 100.0100 #### [facility] [address] [place], [address] COMM . Normal . [facility] Comment on above: Order Comment: REDRA W. PREVIOUS SPECIMEN REJECTED DUE TO CLOTTED SPECIMEN. 01/02/251948 Performed By: #### L 100.0100 #### [facility] [address] [place], [address] COMMENT Comment Normal . [facility] Comment on above: Order Comment: REDRA W. PREVIOUS SPECIMEN REJECTED DUE TO CLOTTED SPECIMEN. 01/02/251948 Result Comment: This liquid based ThinPrep(R) pap test was screened with the use of an image guided system. Performed By: #### L 100.0100 #### [facility] [address] [place], [address] DIAG Comment Normal . [facility] Comment on above: Order Comment: REDRA W. PREVIOUS SPECIMEN REJECTED DUE TO CLOTTED SPECIMEN. 01/02/251948 Result Comment: NEGA TIVE FOR INTRAEPITHELIAL LESION OR MALIGNANCY. Performed By: #### L 100.0100 #### [facility] [address] [place], [place], [address] HPV RFLX Comment Normal . [facility] Comment on above: Order Comment: REDRA W. PREVIOUS SPECIMEN REJECTED DUE TO CLOTTED SPECIMEN. 01/02/251948 Result Comment: The HPV DNA reflex criteria were not met with this specimen result therefore, no HPV testing was performed. Performed at: - [facility] [id number] Meat Seafood Associate: Rubi Snow MD, Phone: [phone] Performed By: #### L 100.0100 #### [facility] [address] [place], [place], [id number] PAPSMR Comment Normal . [facility] Comment on above: Order Comment: REDRA W. [...] occur. Performed By: #### L 100.0100 #### [facility] [address] [place], [place], [address] PERFORM Comment Normal . [facility] Comment on above: Order Comment: REDRA W. PREVIOUS SPECIMEN REJECTED DUE TO CLOTTED SPECIMEN. 01/02/251948 Result Comment: Delores Lombardo, Director Financial Planning (ASCP) Performed By: #### L 100.0100 #### [facility] [address] [place], [place], [address] Urine Cultureon 04-11-2025 [facility] Mixed Gram Positive Organisms [place] Count 80,000-100,000 MIXC Mixed contaminants. Submit a new specimen if indicated. Normal [facility] Comment on above: Performed By: #### L 100.0100 #### [facility] [place], [address] Strategy Manager Office Visit Reporton 04-09-2025 Strategy Manager Office Visit Report [facility] [address], [address] [place] [address] OFFICE VISIT Date of Service: 04/09/25 MR#: [id number] Acct: [id number] Name: LUZ OLIVEIRA Rep #: [id number] : 2000 Provider: Dr. Geraldine storey MD Age/Sex: 24/F Location: [facility] Status: Signed Intake Vital Signs 01/02/25 18:31 03/13/25 11:49 04/09/25 10:39 04/09/25 10:40 Height 5 ft 1 in 5 ft 1 in 5 ft 1 in 5 ft 1 in Weight: 194 lb 8 oz BMI 36.7 BP 106/69 Intake Visit Reasons: *NEW* NOB LMP 02/02, KIMO 11/09 per Canvas Worker Required: No Is patient in pain?: Yes (cramping with urination) Allergies escitalopram (From Lexapro) Adverse Reaction (Severe, Verified 04/09/25 10:39) SUICIDAL citalopram hydrobromide (From Celexa) Adverse Reaction (Verified 04/09/25 10:39) Other Medications ???Medication ???Instructions ???Recorded ???Confirmed ???Type wwwdpgsv-ohd-Kd-FA 1 mg 1 tab PO DAILY 08/09/22 04/09/25 H istory tablet Last Menstrual Period: 02/02/25 Zika: Zika virus screening: Negative : No PFSH PFSH Medical History (Updated 04/09/25 @ 10:50 by Remedios Wong) Congenital lcxnnd-hjuxleb-enyni reflux Surgical History [place] teeth removed Family History Grandmother Breast cancer Brain cancer Grandfather CVA (cerebral vascular accident) Mother Diabetes Heart failure MRSA carrier History of recurrent miscarriages Father Hypertension Social History adopted: No household members: spouse and children housing: house number of children: 1 current occupation: [employer] current occupational exposures/hazards: No pets and [...] 3-4 times per week duration: 15-30 minutes/day kalpana/religious: Latter-Day seatbelt use: always do you feel safe at home: Yes 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 Date Name GA/Weeks Outcome Route Bth Weight Infant Gen Labor Lgth Anesthesia Del Locatn Provider FOB 10/11/18 Chemical 4 spontaneous 03/30/23 Amanda 39 live - full term vacuum 6lbs 1oz Female epidural [place] Delivery Date: 03/30/23 Last Updated [...] Normal am (more content not included)... Normal [facility] Protein+Creatinine Ratio,Uri neon 04-09-2025 PROT:CRE RATIO 58 mg/g CRE Normal 0-200 [facility] Comment on above: Performed By: #### L 100.0100 #### [facility] [address] [place], [address] Protein (U) [Mass/Vol] 15.6 mg/dL High 0.0-12.0 [facility] Comment on above: Performed By: #### L 100.0100 #### [facility] [address] [place], [address] Transvaginal w/Preg USon Transvaginal w/Preg US [facility] [address] [place], [place] [address] Transvaginal w/Preg US MR#: [id number] Acct: [id number] Name: LUZ OLIVEIRA Rep #: [id number] : 2000 F 24 From: Maxwell Ponce MD PCP: Care Physician,No Primary Status: REG CLI Study: Transvaginal w/Preg US Date of Exam: 03/15/25 Exam# [id number] Ordering Dr: Remedios Garcia SUPERVISORY LIFEGUARD SUPERVISORY LIFEGUARD -C PROCEDURE: TRANSVAGINAL W/PREG US 03/15/2025 REASON [...] follow-up. 2. Small perigestational hemorrhage. Reading Location: [id number] CC: JARAD Garcia; No Primary Care Physician Cashier And Waiter/Waitress: Signed Normal [facility] hCG Titer Quant., Serumon HCG QUANT. 7025 mIU/mL High <9 non-preg [facility] Comment on above: Result Comment: Gest ational Age 0.2-1 Week: 5-50 mIU/mL 1-2 Weeks: 50-500 mIU/mL 2-3 Weeks: 100-5000 mIU/mL 3-4 Weeks: 500-10,000 mIU/mL 4-5 Weeks:1000-50,000 mIU/mL 5-6 Weeks: 10,000-100,000 mIU/mL 6-8 Weeks: 15,000-200,000 mIU/mL 2-3 Months:10,000-100,000 mIU/mL Performed By: #### L 100.0100 #### [facility] [address] [place], [address] Office Visit Reporton 2024 Office Visit Report [facility] [address] [place] [address] OFFICE VISIT Date of Service: 03/13/25 MR#: [id number] Acct: [id number] Patient: LUZ OLIVEIRA Rep #: [id number] : 2000 Provider: JARAD moctezuma Age/Sex: 24/F Location: [facility] Status: Signed Intake Vital Signs 01/02/25 18:31 03/13/25 11:49 Height 5 ft 1 in 5 ft 1 in Weight: 200 lb 6 oz BMI 37.8 BP 118/72 Intake Visit Reasons: Pre New OB, Confirm preg, Vitals Canvas Worker Required: No Is patient in pain?: No Allergies escitalopram (From Lexapro) Adverse Reaction (Severe, Verified 03/13/25 11:12) SUICIDAL citalopram hydrobromide (From Celexa) Adverse Reaction (Verified 03/13/25 11:12) Other Medications ???Medication ???Instructions ???Recorded ???Confirmed ???Type jvotodst-qvk-Pe-FA 1 mg 1 tab PO DAILY 08/09/22 [...] Pt with C/O spotting since last night. [facility] notified in office. HcG and TV US [...] Acute (9) Autism: Status: Acute (10) Congenital kkjkcd-rgheejy-mgqxy reflux: Status: Acute Comment: Recurrent UTI's and Kidney stones Orders: Orders hCG Titer Quant., Serum Today Remedios Garcia SUPERVISORY LIFEGUARD, SUPERVISORY LIFEGUARD-C O20.9 - Hemorrhage in early , unspecified [...] fallen in the past year?: No 03/13/25 7108 (more content not included)... Normal [facility] hCG Titer Quant., Serumon HCG QUANT. 3759 mIU/mL High <9 non-preg [facility] Comment on above: Result Comment: Gest ational Age 0.2-1 Week: 5-50 mIU/mL 1-2 Weeks: 50-500 mIU/mL 2-3 Weeks: 100-5000 mIU/mL 3-4 Weeks: 500-10,000 mIU/mL 4-5 Weeks:1000-50,000 mIU/mL 5-6 Weeks: 10,000-100,000 mIU/mL 6-8 Weeks: 15,000-200,000 mIU/mL 2-3 Months:10,000-100,000 mIU/mL Performed By: #### L 100.0100 #### [facility] [address] [facility] [place], [place], [id number] Culture, Blood (WB)on 2024 CUB Blood cultures x2, from two different sites No growth in 5 days. Normal [facility] Comment on above: Performed By: #### M 100.678, M100.2200, L400.0001 #### [facility] [address] [facility] [place], [place], [id number] Urine Cultureon 01-04-2025 [facility] Presumptive E. coli [place] Count 25,000-50,000 Presumptive E. coli: REACTION Ampicillin [...] TMP SMX Islt BRANDI <=20 S Normal [facility] Comment on above: Performed By: #### M 100.678, M100.2200, L400.0001 #### [facility] [address] [facility] [place], [address] Abdomen/Pelvis W IV Cont ONL Yon 01-02-2025 Abdomen/Pelvis W IV Cont ONLY [facility] [address] [place], [place] [address] Abdomen/Pelvis W IV Cont ONLY MR#: [id number] Acct: [id number] Name: LUZ OLIVEIRA Rep #: [id number] : 2000 F 24 From: Yari Reyes nd, MD PCP: Care Physician,No Primary Status: REG ER Study: Abdomen/Pelvis W IV Cont ONLY Date of Exam: Exam# [id number] Ordering Dr: Mendez Gardner DO PROCEDURE: ABDOMEN/PELVIS [...] recommended. 3. Diffuse hepatic steatosis. Reading Location: [facility] CC: Dr. Mendez Gardner, DO; No Primary Care Physician Cashier And Waiter/Waitress: Signed Normal [facility] CBC W/Diff, Automatedon 12-10 Absolute Lymph 0.64 X10 3/uL Low 0.83-4.51 [facility] Comment on above: Order Comment: REDRA W. PREVIOUS SPECIMEN REJECTED DUE TO CLOTTED SPECIMEN. 01/02/251948 Performed By: #### L 100.0100 #### [facility] [address] [place], [address] Absolute Neut 9.4 X10 3/uL High 2.0-7.7 [facility] Comment on above: Order Comment: REDRA W. PREVIOUS SPECIMEN REJECTED DUE TO CLOTTED SPECIMEN. 01/02/251948 Performed By: #### L 100.0100 #### [facility] [address] [place], [address] Basophils/100 WBC (Bld) 0.1 % Normal 0-1 [facility] Comment on above: Order Comment: REDRA W. PREVIOUS SPECIMEN REJECTED DUE TO CLOTTED SPECIMEN. 01/02/251948 Performed By: #### L 100.0100 #### [facility] [address] [place], [address] Eosinophils/100 WBC (Bld) 0.0 % Normal 0-5 [facility] Comment on above: Order Comment: REDRA W. PREVIOUS SPECIMEN REJECTED DUE TO CLOTTED SPECIMEN. 01/02/251948 Performed By: #### L 100.0100 #### [facility] [address] [place], [address] Erythrocyte distribution width (RBC) [Ratio] 12.4 % Normal 11.6-14.6 [facility] Comment on above: Order Comment: REDRA W. PREVIOUS SPECIMEN REJECTED DUE TO CLOTTED SPECIMEN. 01/02/251948 Performed By: #### L 100.0100 #### [facility] [address] [place], [address] Hematocrit (Bld) [Volume fraction] 41.9 % Normal 37-47 [facility] Comment on above: Order Comment: REDRA W. PREVIOUS SPECIMEN REJECTED DUE TO CLOTTED SPECIMEN. 01/02/251948 Performed By: #### L 100.0100 #### [facility] [address] [place], [address] Hemoglobin (Bld) [Mass/Vol] 14.6 g/dL Normal 12.0-15.0 [facility] Comment on above: Order Comment: REDRA W. PREVIOUS SPECIMEN REJECTED DUE TO CLOTTED SPECIMEN. 01/02/251948 Performed By: #### L 100.0100 #### [facility] [address] [place], [address] IG% 0.600 Normal 0.0-0.9 [facility] Comment on above: Order Comment: REDRA W. PREVIOUS SPECIMEN REJECTED DUE TO CLOTTED SPECIMEN. 01/02/251948 Result Comment: IG% - Immature Granulocytes (promyelocytes, myelocytes and metamyelocytes) > 1% indicates that a LEFT SHIFT is Present. Performed By: #### L 100.0100 #### [facility] [address] [place], [address] Lymphocytes/100 WBC (Bld) 5.9 % Low 19-41 [facility] Comment on above: Order Comment: REDRA W. PREVIOUS SPECIMEN REJECTED DUE TO CLOTTED SPECIMEN. 01/02/251948 Performed By: #### L 100.0100 #### [facility] [address] [place], [address] MCH (RBC) [Entitic mass] 30.8 pg Normal 27.0-32.0 [facility] Comment on above: Order Comment: REDRA W. PREVIOUS SPECIMEN REJECTED DUE TO CLOTTED SPECIMEN. 01/02/251948 Performed By: #### L 100.0100 #### [facility] [address] [place], [address] MCHC (RBC) [Mass/Vol] 34.8 g/dL Normal 32-36 [facility] [facility] Comment on above: Order Comment: REDRA W. PREVIOUS SPECIMEN REJECTED DUE TO CLOTTED SPECIMEN. 01/02/251948 Performed By: #### L 100.0100 #### [facility] [address] [place], [address] MCV (RBC) [Entitic vol] 88.4 fL Normal 81-99 [facility] Comment on above: Order Comment: REDRA W. PREVIOUS SPECIMEN REJECTED DUE TO CLOTTED SPECIMEN. 01/02/251948 Performed By: #### L 100.0100 #### [facility] [address] [place], [address] Monocytes/100 WBC (Bld) 5.9 % Normal 0-10 [facility] Comment on above: Order Comment: REDRA W. PREVIOUS SPECIMEN REJECTED DUE TO CLOTTED SPECIMEN. 01/02/251948 Performed By: #### L 100.0100 #### [facility] [address] [place], [address] Neutrophils/100 WBC (Bld) 87.5 % High 47-70 [facility] Comment on above: Order Comment: REDRA W. PREVIOUS SPECIMEN REJECTED DUE TO CLOTTED SPECIMEN. 01/02/251948 Performed By: #### L 100.0100 #### [facility] [address] [place], [address] Nucleated RBC (Bld) [#/Vol] 0 10*3/uL Normal 0-5 [facility] Comment on above: Order Comment: REDRA W. PREVIOUS SPECIMEN REJECTED DUE TO CLOTTED SPECIMEN. 01/02/251948 Performed By: #### L 100.0100 #### [facility] [address] [place], [address] Platelet mean volume (Bld) [Entitic vol] 10.2 fL Normal 6.2-12.0 [facility] Comment on above: Order Comment: REDRA W. PREVIOUS SPECIMEN REJECTED DUE TO CLOTTED SPECIMEN. 01/02/251948 Performed By: #### L 100.0100 #### [facility] [address] [place], [address] Platelets (Bld) [#/Vol] 188 10*3/uL Normal 150-450 [facility] Comment on above: Order Comment: REDRA W. PREVIOUS SPECIMEN REJECTED DUE TO CLOTTED SPECIMEN. 01/02/251948 Performed By: #### L 100.0100 #### [facility] [address] [place], [address] RBC (Bld) [#/Vol] 4.74 10*6/uL Normal 4.2-5.[address] [facility] Comment on above: Order Comment: REDRA W. PREVIOUS SPECIMEN REJECTED DUE TO CLOTTED SPECIMEN. 01/02/251948 Performed By: #### L 100.0100 #### [facility] [address] [place], [address] RDW SD 40.1 fl Normal 35.1-43.9 [facility] Comment on above: Order Comment: REDRA W. PREVIOUS SPECIMEN REJECTED DUE TO CLOTTED SPECIMEN. 01/02/251948 Performed By: #### L 100.0100 #### [facility] [address] [place], [address] WBC (Bld) [#/Vol] 10.8 10*3/uL Normal 4.4-11.[address] [facility] Comment on above: Order Comment: REDRA W. PREVIOUS SPECIMEN REJECTED DUE TO CLOTTED SPECIMEN. 01/02/251948 Performed By: #### L 100.0100 #### [facility] [address] [place], [address] Absolute Neut Normal 2.0-7.7 [facility] Comment on above: Result Comment: This specimen has been REJECTED due to Laboratory criteria: Clotted. ED-ELVIN has been notified of need of recollection. 01/02/251947 Performed By: #### M 100.678, M100.2200, L400.0001 #### [facility] [address] [place], [address] HCT Normal 37-47 [facility] Comment on above: Result Comment: This specimen has been REJECTED due to Laboratory criteria: Clotted. ED-ELVIN has been notified of need of recollection. 01/02/251947 Performed By: #### M 100.678, M100.2200, L400.0001 #### [facility] [address] [place], [address] HGB Normal 12.0-15.0 [facility] Comment on above: Result Comment: This specimen has been REJECTED due to Laboratory criteria: Clotted. ED-ELVIN has been notified of need of recollection. 01/02/251947 Performed By: #### M 100.678, M100.2200, L400.0001 #### [facility] [address] [place], [address] MCH Normal 27.0-32.0 [facility] Comment on above: Result Comment: This specimen has been REJECTED due to Laboratory criteria: Clotted. ED-ELVIN has been notified of need of recollection. 01/02/251947 Performed By: #### M 100.678, M100.2200, L400.0001 #### [facility] [address] [place], [address] MCHC Normal 32-36 [facility] Comment on above: Result Comment: This specimen has been REJECTED due to Laboratory criteria: Clotted. ED-ELVIN has been notified of need of recollection. 01/02/251947 Performed By: #### M 100.678, M100.2200, L400.0001 #### [facility] [address] [place], [address] MCV Normal 81-99 [facility] Comment on above: Result Comment: This specimen has been REJECTED due to Laboratory criteria: Clotted. ED-ELVIN has been notified of need of recollection. 01/02/251947 Performed By: #### M 100.678, M100.2200, L400.0001 #### [facility] [address] [place], [address] NEUT% Normal 47-70 [facility] Comment on above: Result Comment: This specimen has been REJECTED due to Laboratory criteria: Clotted. ED-ELVIN has been notified of need of recollection. 01/02/251947 Performed By: #### M 100.678, M100.2200, L400.0001 #### [facility] [address] [place], [address] PLT Normal 150-450 [facility] Comment on above: Result Comment: This specimen has been REJECTED due to Laboratory criteria: Clotted. ED-ELVIN has been notified of need of recollection. 01/02/251947 Performed By: #### M 100.678, M100.2200, L400.0001 #### [facility] [address] [place], [address] RBC Normal 4.2-5.4 [facility] Comment on above: Result Comment: This specimen has been REJECTED due to Laboratory criteria: Clotted. ED-ELVIN has been notified of need of recollection. 01/02/251947 Performed By: #### M 100.678, M100.2200, L400.0001 #### [facility] [address] [place], [address] RDW CV Normal 11.6-14.6 [facility] Comment on above: Result Comment: This specimen has been REJECTED due to Laboratory criteria: Clotted. ED-ELVIN has been notified of need of recollection. 01/02/251947 Performed By: #### M 100.678, M100.2200, L400.0001 #### [facility] [address] [place], [address] RDW SD Normal 35.1-43.9 [facility] Comment on above: Result Comment: This specimen has been REJECTED due to Laboratory criteria: Clotted. ED-ELVIN has been notified of need of recollection. 01/02/251947 Performed By: #### M 100.678, M100.2200, L400.0001 #### [facility] [address] [place], [address] WBC Normal 4.4-11.0 [facility] Comment on above: Result Comment: This specimen has been REJECTED due to Laboratory criteria: Clotted. ED-ELVIN has been notified of need of recollection. 01/02/251947 Performed By: #### M 100.678, M100.2200, L400.0001 #### [facility] [address] [place], [address] Comprehensive Metabolic Prof ilon 01-02-2025 Albumin [Mass/Vol] 4.5 g/dL Normal 3.5-5.0 [facility] Comment on above: Performed By: #### M 100.678, M100.2200, L400.0001 #### [facility] [address] [place], [address] Albumin/Globulin [Mass ratio] 1.3 {ratio} Normal 0.9-2.4 [facility] Comment on above: Performed By: #### M 100.678, M100.2200, L400.0001 #### [facility] [address] [place], [address] ALK PHOS 69 U/L Normal 35-104 [facility] Comment on above: Performed By: #### M 100.678, M100.2200, L400.0001 #### [facility] [address] [place], [address] ALT [Catalytic activity/Vol] 50 U/L High <=34 [facility] Comment on above: Performed By: #### M 100.678, M100.2200, L400.0001 #### [facility] [address] [place], [address] AST [Catalytic activity/Vol] 28 U/L Normal <=31 [facility] Comment on above: Performed By: #### M 100.678, M100.2200, L400.0001 #### [facility] [address] [place], [address] Bilirubin [Mass/Vol] 0.96 mg/dL Normal 0.00-1.30 [facility] Comment on above: Performed By: #### M 100.678, M100.2200, L400.0001 #### [facility] [address] [place], [address] BUN/CRE 13.3 RATIO Normal 10-20 [facility] Comment on above: Performed By: #### M 100.678, M100.2200, L400.0001 #### [facility] [address] [place], [address] Calcium [Mass/Vol] 9.6 mg/dL Normal 7.6-11.0 [facility] Comment on above: Performed By: #### M 100.678, M100.2200, L400.0001 #### [facility] [address] [place], [address] Chloride [Moles/Vol] 102 mmol/L Normal 98-108 [facility] Comment on above: Performed By: #### M 100.678, M100.2200, L400.0001 #### [facility] [address] [place], [address] CO2 [Moles/Vol] 23.0 mmol/L Normal 21.0-32.0 [facility] Comment on above: Performed By: #### M 100.678, M100.2200, L400.0001 #### [facility] [address] [place], [address] Creatinine [Mass/Vol] 0.93 mg/dL Normal 0.70-1.20 [facility] Comment on above: Performed By: #### M 100.678, M100.2200, L400.0001 #### [facility] [address] [place], [address] ECRCL 94.15 ml/min Normal 50-250 [facility] Comment on above: Performed By: #### M 100.678, M100.2200, L400.0001 #### [facility] [address] [place], [address] GAP 13 Normal 5-15 [facility] Comment on above: Performed By: #### M 100.678, M100.2200, L400.0001 #### [facility] [address] [place], [address] GFR/1.73 sq M.predicted among non-blacks MDRD (S/P/Bld) [Vol rate/Area] 87 mL/min/{1.73_m2} Normal >60 [facility] Comment on above: Result Comment: mL/m in/1.73m2 CKD-EPI Creatinine Equation (2020) Performed By: #### M 100.678, M100.2200, L400.0001 #### [facility] [address] [place], [address] Globulin (S) [Mass/Vol] 3.4 g/dL Normal 2.2-4.2 [facility] Comment on above: Performed By: #### M 100.678, M100.2200, L400.0001 #### [facility] [address] [place], [address] Glucose [Mass/Vol] 109 mg/dL High 70-99 [facility] Comment on above: Performed By: #### M 100.678, M100.2200, L400.0001 #### [facility] [address] [place], [address] Potassium [Moles/Vol] 3.4 mmol/L Normal 3.3-5.1 [facility] Comment on above: Performed By: #### M 100.678, M100.2200, L400.0001 #### [facility] [address] [place], [address] Sodium [Moles/Vol] 138 mmol/L Normal 133-145 [facility] Comment on above: Performed By: #### M 100.678, M100.2200, L400.0001 #### [facility] [address] [place], [address] T PROT 7.9 g/dL Normal 5.9-8.4 [facility] Comment on above: Performed By: #### M 100.678, M100.2200, L400.0001 #### [facility] [address] [place], [address] Urea nitrogen [Mass/Vol] 12 mg/dL Normal 4-19 [facility] Comment on above: Performed By: #### M 100.678, M100.2200, L400.0001 #### [facility] [address] [place], [address] Emergency Department Summary on 01-02-2025 Emergency Department Summary [facility] Medical Records Department [address] [place] [address] Emergency Department Summary 01/02/25 MR#: [id number] Acct: [id number] Name: LUZ OLIVEIRA Rep #: [id number] : 2000 24 From: Mendez Gardner DO [...] States that she tried Azo at home. [facility] Medical History Lumbar radiculopathy, acute Acute lumbar myofascial strain Blunt abdominal trauma Chest wall contusion Cervical strain, acute Concussion without loss of consciousness Crushing injury of right great toe, initial encounter Congenital qhjkdw-vnzwvdh-btoik reflux Home Medications ???Medication ???Instructions ???Recorded ???Last Taken ???Type kqdfycpk-xcr-Fj-FA 1 mg 1 tab PO DAILY 08/09/22 [...] (cerebral vascular accident) Mother Diabetes Surgical History [place] teeth removed Social History household members: spouse [...] following commands knew that she was at [facility] years 2024 Skin:, No rashes or [...] Respiratory Rat (more content not included)... Normal [facility] Lactic Acidon 01-02-2025 Lactate [Moles/Vol] 1.1 mmol/L Normal 0.0-2.[address] [facility] Comment on above: Order Comment: Y Performed By: #### M 100.678, M100.2200, L400.0001 #### [facility] [address] [facility]. [place], [place], [address] Lipaseon 01-02-2025 Lipase [Catalytic activity/Vol] 19 U/L Normal 13-75 [facility] Comment on above: Result Comment: Pletiny paez note: LIPASE revised reference range effective 23. New Lipase methodology. Expected to produce lower values than the previous assay method. NEW Reference Range: 13 - 75 U/L Performed By: #### M 100.678, M100.2200, L400.0001 #### [facility] [address] [facility] [place], [address] M100.678on 01-02-2025 M100.678 Pending SARS-CoV-2 (COVID 19) Negative INFLUENZA A Negative INFLUENZA B Negative RSV PCR Negative Normal [facility] Comment on above: Performed By: #### M 100.678, M100.2200, L400.0001 #### [facility] [address] [place], [address] Partial Thromboplast Timeon 01-02-2025 aPTT Coag (Bld) [Time] 33.7 s Normal 24.1-36.2 [facility] Comment on above: Performed By: #### M 100.678, M100.2200, L400.0001 #### [facility] [address] [place], [address] ,Serum,hCG Quali.on 01-02-2025 HCG, SERUM QUAL Negative Normal [facility] Comment on above: Performed By: #### M 100.678, M100.2200, L400.0001 #### [facility] [address] [place], [address] Prothrombin Time w/INRon INR Coag (PPP) [Relative time] 1.1 {INR} Normal [facility] Comment on above: Performed By: #### M 100.678, M100.2200, L400.0001 #### [facility] [address] [place], [address] PT Coag (PPP) [Time] 14.5 s Normal 11.7-14.9 [facility] Comment on above: Performed By: #### M 100.678, M100.2200, L400.0001 #### [facility] [address] [place], [address] Urinalysis, Completeon 01-02 EPI,SQUAMOUS 5-10 SEEN Normal 5-10 [facility] Comment on above: Order Comment: CLEAN CATCH Performed By: #### M 100.678, M100.2200, L400.0001 #### [facility] [address] [place], [address] BACTERIA 3+ /hpf Normal None Seen [facility] Comment on above: Order Comment: CLEAN CATCH Performed By: #### M 100.678, M100.2200, L400.0001 #### [facility] [address] [place], [address] RBC 5-10 SEEN Normal 0-5 [facility] Comment on above: Order Comment: CLEAN CATCH Performed By: #### M 100.678, M100.2200, L400.0001 #### [facility] [address] [place], [address] WBC >100 SEEN Normal 0-5 [facility] Comment on above: Order Comment: CLEAN CATCH Performed By: #### M 100.678, M100.2200, L400.0001 #### [facility] [address] [place], [address] Mucus Ql (Urine sed) 0 SEEN Normal [facility] Comment on above: Order Comment: CLEAN CATCH Performed By: #### M 100.678, M100.2200, [id number] #### [facility] [address] [place], [address] XR SPINE CERVICAL AP/LATon 0 02-19-2024 XR [...] AM Ordering Provider: KIRSTEN Miller [facility] ([place]) B12on 10-19-2023 Cobalamin (Vitamin B12) [Mass/Vol] 279 pg/mL Normal 211-911 [facility] ([place]) Comment on above: Performed By: #### G FR, LIPID, HFP, A1C, IBC, TSH, CBC, ANEU, FT4, FERR, ADIFF, CMP, FE, VIDH, FT3 #### [address] [address] #### FOL, B12 #### [address] [address] FOLon 10-19-2023 Folate 8.29 ng/mL Normal 5.38-24.00 [facility] ([place]) Comment on above: Performed By: #### G FR, LIPID, HFP, A1C, IBC, TSH, CBC, ANEU, FT4, FERR, ADIFF, CMP, FE, VIDH, FT3 #### [address] [address] #### FOL, B12 #### [address] [address] .Auto Diffon 10-15-2023 Basophil, Absolute 0.0 10 3/mcL Normal 0.0-0.2 [facility]) Comment on above: Performed By: #### G FR, LIPID, HFP, A1C, IBC, TSH, CBC, ANEU, FT4, FERR, ADIFF, CMP, FE, VIDH, FT3 #### [address] [address] #### FOL, B12 #### [address] [address] Basophils/100 WBC (Bld) 0.2 % Normal 0.0-2.5 [facility] ([place]) Comment on above: Performed By: #### G FR, LIPID, HFP, A1C, IBC, TSH, CBC, ANEU, FT4, FERR, ADIFF, CMP, FE, VIDH, FT3 #### [address] [address] #### FOL, B12 #### [address] [address] Eosinophil, Absolute 0.0 10 3/mcL Normal 0.0-0.4 [facility] ([place]) Comment on above: Performed By: #### G FR, LIPID, HFP, A1C, IBC, TSH, CBC, ANEU, FT4, FERR, ADIFF, CMP, FE, VIDH, FT3 #### [address] [address] #### FOL, B12 #### [address] [address] Eosinophils/100 WBC (Bld) 0.6 % Normal 0.0-7.0 [facility] ([place]) Comment on above: Performed By: #### G FR, LIPID, HFP, A1C, IBC, TSH, CBC, ANEU, FT4, FERR, ADIFF, CMP, FE, VIDH, FT3 #### [address] [address] #### FOL, B12 #### [address] [address] Lymphocyte, Absolute 1.5 10 3/mcL Normal 0.8-3.9 [facility] ([place]) Comment on above: Performed By: #### G FR, LIPID, HFP, A1C, IBC, TSH, CBC, ANEU, FT4, FERR, ADIFF, CMP, FE, VIDH, FT3 #### [address] [address] #### FOL, B12 #### [address] [address] Lymphocytes/100 WBC (Bld) 23.2 % Normal 10.0-50.0 [facility] ([place]) Comment on above: Performed By: #### G FR, LIPID, HFP, A1C, IBC, TSH, CBC, ANEU, FT4, FERR, ADIFF, CMP, FE, VIDH, FT3 #### [address] [address] #### FOL, B12 #### [address] [address] Monocyte, Absolute 0.4 10 3/mcL Normal 0.2-1.0 [facility] Comment on above: Performed By: #### G FR, LIPID, HFP, A1C, IBC, TSH, CBC, ANEU, FT4, FERR, ADIFF, CMP, FE, VIDH, FT3 #### [address] [address] #### FOL, B12 #### [address] [address] Monocytes/100 WBC (Bld) 5.6 % Normal 1.7-13.0 [facility] ([place]) Comment on above: Performed By: #### G FR, LIPID, HFP, A1C, IBC, TSH, CBC, ANEU, FT4, FERR, ADIFF, CMP, FE, VIDH, FT3 #### [address] [address] #### FOL, B12 #### [address] [address] Neutrophils/100 WBC (Bld) 70.4 % Normal 37.0-80.0 [facility] ([place]) Comment on above: Performed By: #### G FR, LIPID, HFP, A1C, IBC, TSH, CBC, ANEU, FT4, FERR, ADIFF, CMP, FE, VIDH, FT3 #### [address] [address] #### FOL, B12 #### [address] [address] .GFRon 10-15-2023 GFR Non- 73 ml/min/1.73sqm Normal [facility] ([place]) Comment on above: Result Comment: GFR [...] FERR, ADIFF, CMP, FE, VIDH, FT3 #### [address] [address] #### FOL, B12 #### [address] [address] GFR 89 ml/min/1.73sqm Normal [facility] ([place]) Comment on above: Result Comment: GFR [...] FERR, ADIFF, CMP, FE, VIDH, FT3 #### [address] [address] #### FOL, B12 #### [address] [address] .NEUABSon 10-15-2023 Neutrophil, Absolute 4.5 10 3/mcL Normal 2.9-6.2 [facility] ([place]) Comment on above: Performed By: #### G FR, LIPID, HFP, A1C, IBC, TSH, CBC, ANEU, FT4, FERR, ADIFF, CMP, FE, VIDH, FT3 #### [address] [address] #### FOL, B12 #### [address] [address] A1Con 10-15-2023 HbA1c (Bld) [Mass fraction] 4.9 % Normal 4.3-6.4 [facility] ([place]) Comment on above: Performed By: #### G FR, LIPID, HFP, A1C, IBC, TSH, CBC, ANEU, FT4, FERR, ADIFF, CMP, FE, VIDH, FT3 #### [address] [address] #### FOL, B12 #### [place] [address] CBCon 10-15-2023 Erythrocyte distribution width (RBC) [Ratio] 14.1 % Normal 11.5-14.5 [facility] ([place]) Comment on above: Performed By: #### G FR, LIPID, HFP, A1C, IBC, TSH, CBC, ANEU, FT4, FERR, ADIFF, CMP, FE, VIDH, FT3 #### [address] [address] #### FOL, B12 #### [address] [address] Hematocrit (Bld) [Volume fraction] 42.4 % Normal 37.0-47.0 [facility] ([place]) Comment on above: Performed By: #### G FR, LIPID, HFP, A1C, IBC, TSH, CBC, ANEU, FT4, FERR, ADIFF, CMP, FE, VIDH, FT3 #### [address] [address] #### FOL, B12 #### [address] [address] Hgb 14.5 G/dL Normal 12.0-16.0 [facility] ([place]) Comment on above: Performed By: #### G FR, LIPID, HFP, A1C, IBC, TSH, CBC, ANEU, FT4, FERR, ADIFF, CMP, FE, VIDH, FT3 #### [address] [address] #### FOL, B12 #### [address] [address] MCH (RBC) [Entitic mass] 30.8 pg Normal 27.0-31.2 [facility] ([place]) Comment on above: Performed By: #### G FR, LIPID, HFP, A1C, IBC, TSH, CBC, ANEU, FT4, FERR, ADIFF, CMP, FE, VIDH, FT3 #### [address] [address] #### FOL, B12 #### [address] [address] MCHC 34.2 G/dL Normal 33.0-37.0 [facility] ([place]) Comment on above: Performed By: #### G FR, LIPID, HFP, A1C, IBC, TSH, CBC, ANEU, FT4, FERR, ADIFF, CMP, FE, VIDH, FT3 #### [address] [address] #### FOL, B12 #### [address] [address] MCV (RBC) [Entitic vol] 90.3 fL Normal 80.0-94.0 [facility] ([place]) Comment on above: Performed By: #### G FR, LIPID, HFP, A1C, IBC, TSH, CBC, ANEU, FT4, FERR, ADIFF, CMP, FE, VIDH, FT3 #### [address] [address] #### FOL, B12 #### [address] [address] Platelet 237 10 3/mcL Normal 130-400 [facility] ([place]) Comment on above: Performed By: #### G FR, LIPID, HFP, A1C, IBC, TSH, CBC, ANEU, FT4, FERR, ADIFF, CMP, FE, VIDH, FT3 #### [address] [address] #### FOL, B12 #### [address] [address] Platelet mean volume (Bld) [Entitic vol] 8.6 fL Normal 7.4-10.4 [facility] ([place]) Comment on above: Performed By: #### G FR, LIPID, HFP, A1C, IBC, TSH, CBC, ANEU, FT4, FERR, ADIFF, CMP, FE, VIDH, FT3 #### [address] [address] #### FOL, B12 #### [address] [address] RBC 4.69 10 6/mcL Normal 4.20-5.40 [facility] ([place]) Comment on above: Performed By: #### G FR, LIPID, HFP, A1C, IBC, TSH, CBC, ANEU, FT4, FERR, ADIFF, CMP, FE, VIDH, FT3 #### [address] [address] #### FOL, B12 #### [place] [address] WBC 6.4 10 3/mcL Normal 4.6-10.8 [facility] ([place]) Comment on above: Performed By: #### G FR, LIPID, HFP, A1C, IBC, TSH, CBC, ANEU, FT4, FERR, ADIFF, CMP, FE, VIDH, FT3 #### [address] [address] #### FOL, B12 #### [address] [address] CMPon 10-15-2023 BUN/Creatinine Ratio 17 ratio Normal 7-27 [facility] [place] Comment on above: Performed By: #### G FR, LIPID, HFP, A1C, IBC, TSH, CBC, ANEU, FT4, FERR, ADIFF, CMP, FE, VIDH, FT3 #### [address] [address] #### FOL, B12 #### [address] [address] Calcium [Mass/Vol] 9.5 mg/dL Normal 8.4-10.2 [facility] ([place]) Comment on above: Performed By: #### G FR, LIPID, HFP, A1C, IBC, TSH, CBC, ANEU, FT4, FERR, ADIFF, CMP, FE, VIDH, FT3 #### [address] [address] #### FOL, B12 #### [address] [address] Chloride [Moles/Vol] 101 mmol/L Normal 98-107 [facility] [place] Comment on above: Performed By: #### G FR, LIPID, HFP, A1C, IBC, TSH, CBC, ANEU, FT4, FERR, ADIFF, CMP, FE, VIDH, FT3 #### [address] [address] #### FOL, B12 #### [address] [address] CO2 [Moles/Vol] 27 mmol/L Normal 22-29 [facility] ([place]) Comment on above: Performed By: #### G FR, LIPID, HFP, A1C, IBC, TSH, CBC, ANEU, FT4, FERR, ADIFF, CMP, FE, VIDH, FT3 #### [address] [address] #### FOL, B12 #### [address] [address] Creatinine [Mass/Vol] 0.94 mg/dL Normal 0.55-1.02 [facility] ([place]) Comment on above: Performed By: #### G FR, LIPID, HFP, A1C, IBC, TSH, CBC, ANEU, FT4, FERR, ADIFF, CMP, FE, VIDH, FT3 #### [address] [address] #### FOL, B12 #### [address] [address] Electrolyte Balance 13.0 mEq/L Normal 4.0-15.0 [facility] ([place]) Comment on above: Performed By: #### G FR, LIPID, HFP, A1C, IBC, TSH, CBC, ANEU, FT4, FERR, ADIFF, CMP, FE, VIDH, FT3 #### [address] [address] #### FOL, B12 #### [address] [address] Glucose [Mass/Vol] 92 mg/dL Normal 70-105 [facility] ([place]) Comment on above: Performed By: #### G FR, LIPID, HFP, A1C, IBC, TSH, CBC, ANEU, FT4, FERR, ADIFF, CMP, FE, VIDH, FT3 #### [address] [address] #### FOL, B12 #### [address] [address] Potassium [Moles/Vol] 4.2 mmol/L Normal 3.5-5.1 [facility] ([place]) Comment on above: Performed By: #### G FR, LIPID, HFP, A1C, IBC, TSH, CBC, ANEU, FT4, FERR, ADIFF, CMP, FE, VIDH, FT3 #### [address] [address] #### FOL, B12 #### [address] [address] Sodium [Moles/Vol] 141 mmol/L Normal 136-145 [facility] ([place]) Comment on above: Performed By: #### G FR, LIPID, HFP, A1C, IBC, TSH, CBC, ANEU, FT4, FERR, ADIFF, CMP, FE, VIDH, FT3 #### [address] [address] #### FOL, B12 #### [address] [address] Urea nitrogen [Mass/Vol] 16 mg/dL Normal 7-18 [facility] ([place]) Comment on above: Performed By: #### G FR, LIPID, HFP, A1C, IBC, TSH, CBC, ANEU, FT4, FERR, ADIFF, CMP, FE, VIDH, FT3 #### [address] [address] #### FOL, B12 #### [address] [address] FEon 10-15-2023 Iron [Mass/Vol] 141 ug/dL Normal 50-170 [facility] ([place]) Comment on above: Performed By: #### G FR, LIPID, HFP, A1C, IBC, TSH, CBC, ANEU, FT4, FERR, ADIFF, CMP, FE, VIDH, FT3 #### [address] [address] #### FOL, B12 #### [address] [address] Heidi 10-15-2023 Ferritin [Mass/Vol] 60.0 ng/mL Normal 8.0-252.0 [facility] ([place]) Comment on above: Performed By: #### G FR, LIPID, HFP, A1C, IBC, TSH, CBC, ANEU, FT4, FERR, ADIFF, CMP, FE, VIDH, FT3 #### [address] [address] #### FOL, B12 #### [address] [address] FT3on 10-15-2023 Free T3 [Mass/Vol] 3.26 pg/mL Normal 2.30-4.00 [facility] ([place]) Comment on above: Performed By: #### G FR, LIPID, HFP, A1C, IBC, TSH, CBC, ANEU, FT4, FERR, ADIFF, CMP, FE, VIDH, FT3 #### [address] [address] #### FOL, B12 #### [address] [address] FT4on 10-15-2023 Free T4 [Mass/Vol] 1.15 ng/dL Normal 0.76-1.46 [facility] ([place]) Comment on above: Performed By: #### G FR, LIPID, HFP, A1C, IBC, TSH, CBC, ANEU, FT4, FERR, ADIFF, CMP, FE, VIDH, FT3 #### [address] [address] #### FOL, B12 #### [address] [address] HFPon 10-15-2023 Bili Indirect 0.4 mg/dL Normal [facility] ([place]) Comment on above: Performed By: #### G FR, LIPID, HFP, A1C, IBC, TSH, CBC, ANEU, FT4, FERR, ADIFF, CMP, FE, VIDH, FT3 #### [address] [address] #### FOL, B12 #### [address] [address] Albumin Level 4.0 G/dL Normal 3.5-5.0 [facility] ([place]) Comment on above: Performed By: #### G FR, LIPID, HFP, A1C, IBC, TSH, CBC, ANEU, FT4, FERR, ADIFF, CMP, FE, VIDH, FT3 #### [address] [address] #### FOL, B12 #### [address] [address] Albumin/Globulin [Mass ratio] 1.1 {ratio} Normal 1.1-2.5 [facility] ([place]) Comment on above: Performed By: #### G FR, LIPID, HFP, A1C, IBC, TSH, CBC, ANEU, FT4, FERR, ADIFF, CMP, FE, VIDH, FT3 #### [address] [address] #### FOL, B12 #### [address] [address] ALP [Catalytic activity/Vol] 91 U/L Normal 40-135 [facility] ([place]) Comment on above: Performed By: #### G FR, LIPID, HFP, A1C, IBC, TSH, CBC, ANEU, FT4, FERR, ADIFF, CMP, FE, VIDH, FT3 #### [address] [address] #### FOL, B12 #### [address] [address] ALT [Catalytic activity/Vol] 25 U/L Normal 14-59 [facility] ([place]) Comment on above: Performed By: #### G FR, LIPID, HFP, A1C, IBC, TSH, CBC, ANEU, FT4, FERR, ADIFF, CMP, FE, VIDH, FT3 #### [address] [address] #### FOL, B12 #### [address] [address] AST [Catalytic activity/Vol] 15 U/L Normal 10-40 [facility] ([place]) Comment on above: Performed By: #### G FR, LIPID, HFP, A1C, IBC, TSH, CBC, ANEU, FT4, FERR, ADIFF, CMP, FE, VIDH, FT3 #### [address] [address] #### FOL, B12 #### [place] [id number] Bili Direct 0.2 mg/dL Normal 0.0-0.2 [facility] ([place]) Comment on above: Result Comment: Use of this assay is not recommended for patients undergoing treatment with eltrombopag due to the potential for falsely elevated results. Performed By: #### G FR, LIPID, HFP, A1C, IBC, TSH, CBC, ANEU, FT4, FERR, ADIFF, CMP, FE, VIDH, FT3 #### [address] [address] #### FOL, B12 #### [place] [address] Bili Total 0.6 mg/dL Normal 0.2-1.0 [facility] ([place]) Comment on above: Result Comment: Use of this assay is not recommended for patients undergoing treatment with eltrombopag due to the potential for falsely elevated results. Performed By: #### G FR, LIPID, HFP, A1C, IBC, TSH, CBC, ANEU, FT4, FERR, ADIFF, CMP, FE, VIDH, FT3 #### [address] [address] #### FOL, B12 #### [address] [address] Globulin 3.7 G/dL Normal [facility] ([place]) Comment on above: Performed By: #### G FR, LIPID, HFP, A1C, IBC, TSH, CBC, ANEU, FT4, FERR, ADIFF, CMP, FE, VIDH, FT3 #### [address] [address] #### FOL, B12 #### [place] [address] Total Protein 7.7 G/dL Normal 6.4-8.2 [facility] ([place]) Comment on above: Performed By: #### G FR, LIPID, HFP, A1C, IBC, TSH, CBC, ANEU, FT4, FERR, ADIFF, CMP, FE, VIDH, FT3 #### [address] [address] #### FOL, B12 #### [place] [address] IBCon 10-15-2023 TIBC 330 mcg/dL Normal 250-450 [facility] ([place]) Comment on above: Performed By: #### G FR, LIPID, HFP, A1C, IBC, TSH, CBC, ANEU, FT4, FERR, ADIFF, CMP, FE, VIDH, FT3 #### [address] [address] #### FOL, B12 #### [place] [id number] LABORATORYOrdered By: SYSTEM SYSTEM on 10-15-2023 25-hydroxyvitamin [...] [Mass/Vol] 172 mg/dL Normal 0-200 [facility] ([place]) Comment on above: Result Comment: Chol esterol Reference Interval: Less than 200 Desirable 200-239 Borderline high risk 240 and above High risk Performed By: #### G FR, LIPID, HFP, A1C, IBC, TSH, CBC, ANEU, FT4, FERR, ADIFF, CMP, FE, VIDH, FT3 #### [address] [address] #### FOL, B12 #### [address] [address] Cholesterol in HDL [Mass/Vol] 66 mg/dL High 40-60 [facility] ([place]) Comment on above: Performed By: #### G FR, LIPID, HFP, A1C, IBC, TSH, CBC, ANEU, FT4, FERR, ADIFF, CMP, FE, VIDH, FT3 #### [address] [address] #### FOL, B12 #### [address] [address] Cholesterol in LDL [Mass/Vol] 80 mg/dL Normal 0-130 [facility] ([place]) Comment on above: Performed By: #### G FR, LIPID, HFP, A1C, IBC, TSH, CBC, ANEU, FT4, FERR, ADIFF, CMP, FE, VIDH, FT3 #### [address] [address] #### FOL, B12 #### [address] [address] Triglyceride [Mass/Vol] 132 mg/dL Normal 0-150 [facility] ([place]) Comment on above: Result Comment: Trig lyceride Reference Interval: Less than 150 Normal 150-199 Borderline high risk 200-499 High risk 500 or higher Very high risk Performed By: #### G FR, LIPID, HFP, A1C, IBC, TSH, CBC, ANEU, FT4, FERR, ADIFF, CMP, FE, VIDH, FT3 #### [address] [address] #### FOL, B12 #### [address] [address] Laboratory - Chemistry and C hemistry - [...] Qn 1.13 m[IU]/L Normal 0.36-3.74 [facility] ([place]) Comment on above: Performed By: #### G FR, LIPID, HFP, A1C, IBC, TSH, CBC, ANEU, FT4, FERR, ADIFF, CMP, FE, VIDH, FT3 #### [address] [address] #### FOL, B12 #### [place] [address] UDRUGon 10-15-2023 Amphetamine (u) Negative Normal Negative [facility] ([place]) Comment on above: Performed By: #### G FR, LIPID, HFP, A1C, IBC, TSH, CBC, ANEU, FT4, FERR, ADIFF, CMP, FE, VIDH, FT3 #### [address] [address] #### FOL, B12 #### [place] [address] Barbiturate (u) Negative Normal Negative [facility] ([place]) Comment on above: Performed By: #### G FR, LIPID, HFP, A1C, IBC, TSH, CBC, ANEU, FT4, FERR, ADIFF, CMP, FE, VIDH, FT3 #### [address] [address] #### FOL, B12 #### [place] [address] Benzodiazepine (u) Negative Normal Negative [facility] ([place]) Comment on above: Performed By: #### G FR, LIPID, HFP, A1C, IBC, TSH, CBC, ANEU, FT4, FERR, ADIFF, CMP, FE, VIDH, FT3 #### [address] [address] #### FOL, B12 #### [place] [address] Cannabinoid (u) Negative Normal Negative [facility] ([place]) Comment on above: Performed By: #### G FR, LIPID, HFP, A1C, IBC, TSH, CBC, ANEU, FT4, FERR, ADIFF, CMP, FE, VIDH, FT3 #### [address] [address] #### FOL, B12 #### [place] [address] Cocaine Ql (U) Negative Normal Negative [facility] ([place]) Comment on above: Performed By: #### G FR, LIPID, HFP, A1C, IBC, TSH, CBC, ANEU, FT4, FERR, ADIFF, CMP, FE, VIDH, FT3 #### [address] [address] #### FOL, B12 #### [place] [address] Methadone Ql (U) Negative Normal Negative [facility] ([place]) Comment on above: Performed By: #### G FR, LIPID, HFP, A1C, IBC, TSH, CBC, ANEU, FT4, FERR, ADIFF, CMP, FE, VIDH, FT3 #### [address] [address] #### FOL, B12 #### [place] [address] Opiate (u) Negative Normal Negative [facility] ([place]) Comment on above: Performed By: #### G FR, LIPID, HFP, A1C, IBC, TSH, CBC, ANEU, FT4, FERR, ADIFF, CMP, FE, VIDH, FT3 #### [address] [address] #### FOL, B12 #### [place] [address] PCP (u) Negative Normal Negative [facility] ([place]) Comment on above: Performed By: #### G FR, LIPID, HFP, A1C, IBC, TSH, CBC, ANEU, FT4, FERR, ADIFF, CMP, FE, VIDH, FT3 #### [address] [address] #### FOL, B12 #### [place] [address] Urine Drugs screened: See Below Normal [facility] ([place]) Comment on above: Result Comment: This [...] FERR, ADIFF, CMP, FE, VIDH, FT3 #### [address] [address] #### FOL, B12 #### [place] [address] VIDHon 10-15-2023 Vit. D 25-Hydroxy 12.2 ng/mL Normal [facility] ([place]) Comment on above: Result Comment: Inte rpretive Values Based on Total 25(OH) Vitamin D: Deficient <20 ng/mL Insufficient 20 - <30 ng/mL Sufficient 30-100 ng/mL Performed By: #### G FR, LIPID, HFP, A1C, IBC, TSH, CBC, ANEU, FT4, FERR, ADIFF, CMP, FE, VIDH, FT3 #### [address] [address] #### FOL, B12 #### [address] [address] .Auto Diffon 03-31-2023 Basophil, Absolute 0.0 10 3/mcL Normal 0.0-0.2 [facility] [place] Comment on above: Performed By: #### G FR, LIPID, HFP, A1C, IBC, TSH, CBC, ANEU, FT4, FERR, ADIFF, CMP, FE, VIDH, FT3 #### [address] [address] #### FOL, B12 #### [address] [address] Basophils/100 WBC (Bld) 0.1 % Normal 0.0-2.5 [facility] ([place]) Comment on above: Performed By: #### G FR, LIPID, HFP, A1C, IBC, TSH, CBC, ANEU, FT4, FERR, ADIFF, CMP, FE, VIDH, FT3 #### [address] [address] #### FOL, B12 #### [address] [address] Eosinophil, Absolute 0.0 10 3/mcL Normal 0.0-0.4 [facility] ([place]) Comment on above: Performed By: #### G FR, LIPID, HFP, A1C, IBC, TSH, CBC, ANEU, FT4, FERR, ADIFF, CMP, FE, VIDH, FT3 #### [address] [address] #### FOL, B12 #### [address] [address] Eosinophils/100 WBC (Bld) 0.0 % Normal 0.0-7.0 [facility] ([place]) Comment on above: Performed By: #### G FR, LIPID, HFP, A1C, IBC, TSH, CBC, ANEU, FT4, FERR, ADIFF, CMP, FE, VIDH, FT3 #### [address] [address] #### FOL, B12 #### [address] [address] Lymphocyte, Absolute 1.2 10 3/mcL Normal 0.8-3.9 [facility] ([place]) Comment on above: Performed By: #### G FR, LIPID, HFP, A1C, IBC, TSH, CBC, ANEU, FT4, FERR, ADIFF, CMP, FE, VIDH, FT3 #### [address] [address] #### FOL, B12 #### [address] [address] Lymphocytes/100 WBC (Bld) 11.4 % Normal 10.0-50.0 [facility] ([place]) Comment on above: Performed By: #### G FR, LIPID, HFP, A1C, IBC, TSH, CBC, ANEU, FT4, FERR, ADIFF, CMP, FE, VIDH, FT3 #### [address] [address] #### FOL, B12 #### [address] [address] Monocyte, Absolute 0.8 10 3/mcL Normal 0.2-1.0 [facility] [place] Comment on above: Performed By: #### G FR, LIPID, HFP, A1C, IBC, TSH, CBC, ANEU, FT4, FERR, ADIFF, CMP, FE, VIDH, FT3 #### [address] [address] #### FOL, B12 #### [address] [address] Monocytes/100 WBC (Bld) 7.6 % Normal 1.7-13.0 [facility] ([place]) Comment on above: Performed By: #### G FR, LIPID, HFP, A1C, IBC, TSH, CBC, ANEU, FT4, FERR, ADIFF, CMP, FE, VIDH, FT3 #### [address] [address] #### FOL, B12 #### [address] [address] Neutrophils/100 WBC (Bld) 80.9 % High 37.0-80.0 [facility] ([place]) Comment on above: Performed By: #### G FR, LIPID, HFP, A1C, IBC, TSH, CBC, ANEU, FT4, FERR, ADIFF, CMP, FE, VIDH, FT3 #### [address] [address] #### FOL, B12 #### [address] [address] .NEUABSon 03-31-2023 Neutrophil, Absolute 8.8 10 3/mcL High 2.9-6.2 [facility] ([place]) Comment on above: Performed By: #### G FR, LIPID, HFP, A1C, IBC, TSH, CBC, ANEU, FT4, FERR, ADIFF, CMP, FE, VIDH, FT3 #### [address] [address] #### FOL, B12 #### [address] [address] CBCon 03-31-2023 Erythrocyte distribution width (RBC) [Ratio] 13.9 % Normal 11.5-14.5 [facility] ([place]) Comment on above: Performed By: #### G FR, LIPID, HFP, A1C, IBC, TSH, CBC, ANEU, FT4, FERR, ADIFF, CMP, FE, VIDH, FT3 #### [address] [address] #### FOL, B12 #### [address] [address] Hematocrit (Bld) [Volume fraction] 33.1 % Low 37.0-47.0 [facility] ([place]) Comment on above: Performed By: #### G FR, LIPID, HFP, A1C, IBC, TSH, CBC, ANEU, FT4, FERR, ADIFF, CMP, FE, VIDH, FT3 #### [address] [address] #### FOL, B12 #### [address] [address] Hgb 11.5 G/dL Low 12.0-16.0 [facility] ([place]) Comment on above: Performed By: #### G FR, LIPID, HFP, A1C, IBC, TSH, CBC, ANEU, FT4, FERR, ADIFF, CMP, FE, VIDH, FT3 #### [address] [address] #### FOL, B12 #### [address] [address] MCH (RBC) [Entitic mass] 32.3 pg High 27.0-31.2 [facility] ([place]) Comment on above: Performed By: #### G FR, LIPID, HFP, A1C, IBC, TSH, CBC, ANEU, FT4, FERR, ADIFF, CMP, FE, VIDH, FT3 #### [address] [address] #### FOL, B12 #### [address] [address] MCHC 34.7 G/dL Normal 33.0-37.0 [facility] ([place]) Comment on above: Performed By: #### G FR, LIPID, HFP, A1C, IBC, TSH, CBC, ANEU, FT4, FERR, ADIFF, CMP, FE, VIDH, FT3 #### [address] [address] #### FOL, B12 #### [address] [address] MCV (RBC) [Entitic vol] 93.0 fL Normal 80.0-94.0 [facility] ([place]) Comment on above: Performed By: #### G FR, LIPID, HFP, A1C, IBC, TSH, CBC, ANEU, FT4, FERR, ADIFF, CMP, FE, VIDH, FT3 #### [address] [address] #### FOL, B12 #### [address] [address] Platelet 155 10 3/mcL Normal 130-400 [facility] ([place]) Comment on above: Performed By: #### G FR, LIPID, HFP, A1C, IBC, TSH, CBC, ANEU, FT4, FERR, ADIFF, CMP, FE, VIDH, FT3 #### [address] [address] #### FOL, B12 #### [address] [address] Platelet mean volume (Bld) [Entitic vol] 9.3 fL Normal 7.4-10.4 [facility] ([place]) Comment on above: Performed By: #### G FR, LIPID, HFP, A1C, IBC, TSH, CBC, ANEU, FT4, FERR, ADIFF, CMP, FE, VIDH, FT3 #### [address] [address] #### FOL, B12 #### [address] [address] RBC 3.55 10 6/mcL Low 4.20-5.40 [facility] ([place]) Comment on above: Performed By: #### G FR, LIPID, HFP, A1C, IBC, TSH, CBC, ANEU, FT4, FERR, ADIFF, CMP, FE, VIDH, FT3 #### [address] [address] #### FOL, B12 #### [address] [address] WBC 10.9 10 3/mcL High 4.6-10.8 [facility] ([place]) Comment on above: Performed By: #### G FR, LIPID, HFP, A1C, IBC, TSH, CBC, ANEU, FT4, FERR, ADIFF, CMP, FE, VIDH, FT3 #### [address] [address] #### FOL, B12 #### [place] [address] LABORATORYOrdered By: Billie Ibarra on 03-31-2023 Basophil, [...] Ql (S) Non-Reactive Normal Non-Reactive [facility] ([place]) Comment on above: Result Comment: The [...] FERR, ADIFF, CMP, FE, VIDH, FT3 #### [address] [address] #### FOL, B12 #### [address] [address] .Auto Diffon 03-30-2023 Basophil, Absolute 0.0 10 3/mcL Normal 0.0-0.2 [facility] [place] Comment on above: Performed By: #### G FR, LIPID, HFP, A1C, IBC, TSH, CBC, ANEU, FT4, FERR, ADIFF, CMP, FE, VIDH, FT3 #### [address] [address] #### FOL, B12 #### [address] [address] Basophils/100 WBC (Bld) 0.1 % Normal 0.0-2.5 [facility] ([place]) Comment on above: Performed By: #### G FR, LIPID, HFP, A1C, IBC, TSH, CBC, ANEU, FT4, FERR, ADIFF, CMP, FE, VIDH, FT3 #### [address] [address] #### FOL, B12 #### [address] [address] Eosinophil, Absolute 0.0 10 3/mcL Normal 0.0-0.4 [facility] ([place]) Comment on above: Performed By: #### G FR, LIPID, HFP, A1C, IBC, TSH, CBC, ANEU, FT4, FERR, ADIFF, CMP, FE, VIDH, FT3 #### [address] [address] #### FOL, B12 #### [address] [address] Eosinophils/100 WBC (Bld) 0.2 % Normal 0.0-7.0 [facility] ([place]) Comment on above: Performed By: #### G FR, LIPID, HFP, A1C, IBC, TSH, CBC, ANEU, FT4, FERR, ADIFF, CMP, FE, VIDH, FT3 #### [address] [address] #### FOL, B12 #### [address] [address] Lymphocyte, Absolute 1.8 10 3/mcL Normal 0.8-3.9 [facility] ([place]) Comment on above: Performed By: #### G FR, LIPID, HFP, A1C, IBC, TSH, CBC, ANEU, FT4, FERR, ADIFF, CMP, FE, VIDH, FT3 #### [address] [address] #### FOL, B12 #### [address] [address] Lymphocytes/100 WBC (Bld) 16.8 % Normal 10.0-50.0 [facility] ([place]) Comment on above: Performed By: #### G FR, LIPID, HFP, A1C, IBC, TSH, CBC, ANEU, FT4, FERR, ADIFF, CMP, FE, VIDH, FT3 #### [address] [address] #### FOL, B12 #### [address] [address] Monocyte, Absolute 0.8 10 3/mcL Normal 0.2-1.0 [facility] [place] Comment on above: Performed By: #### G FR, LIPID, HFP, A1C, IBC, TSH, CBC, ANEU, FT4, FERR, ADIFF, CMP, FE, VIDH, FT3 #### [address] [address] #### FOL, B12 #### [address] [address] Monocytes/100 WBC (Bld) 7.2 % Normal 1.7-13.0 [facility] ([place]) Comment on above: Performed By: #### G FR, LIPID, HFP, A1C, IBC, TSH, CBC, ANEU, FT4, FERR, ADIFF, CMP, FE, VIDH, FT3 #### [address] [address] #### FOL, B12 #### [address] [address] Neutrophils/100 WBC (Bld) 75.7 % Normal 37.0-80.0 [facility] ([place]) Comment on above: Performed By: #### G FR, LIPID, HFP, A1C, IBC, TSH, CBC, ANEU, FT4, FERR, ADIFF, CMP, FE, VIDH, FT3 #### [address] [address] #### FOL, B12 #### [address] [address] .NEUABSon 03-30-2023 Neutrophil, Absolute 8.2 10 3/mcL High 2.9-6.2 [facility] ([place]) Comment on above: Performed By: #### G FR, LIPID, HFP, A1C, IBC, TSH, CBC, ANEU, FT4, FERR, ADIFF, CMP, FE, VIDH, FT3 #### [address] [address] #### FOL, B12 #### [address] [address] CBCon 03-30-2023 Erythrocyte distribution width (RBC) [Ratio] 13.8 % Normal 11.5-14.5 [facility] ([place]) Comment on above: Performed By: #### G FR, LIPID, HFP, A1C, IBC, TSH, CBC, ANEU, FT4, FERR, ADIFF, CMP, FE, VIDH, FT3 #### [address] [address] #### FOL, B12 #### [address] [address] Hematocrit (Bld) [Volume fraction] 37.2 % Normal 37.0-47.0 [facility] ([place]) Comment on above: Performed By: #### G FR, LIPID, HFP, A1C, IBC, TSH, CBC, ANEU, FT4, FERR, ADIFF, CMP, FE, VIDH, FT3 #### [address] [address] #### FOL, B12 #### [address] [address] Hgb 12.9 G/dL Normal 12.0-16.0 [facility] ([place]) Comment on above: Performed By: #### G FR, LIPID, HFP, A1C, IBC, TSH, CBC, ANEU, FT4, FERR, ADIFF, CMP, FE, VIDH, FT3 #### [address] [address] #### FOL, B12 #### [address] [address] MCH (RBC) [Entitic mass] 32.2 pg High 27.0-31.2 [facility] ([place]) Comment on above: Performed By: #### G FR, LIPID, HFP, A1C, IBC, TSH, CBC, ANEU, FT4, FERR, ADIFF, CMP, FE, VIDH, FT3 #### [address] [address] #### FOL, B12 #### [address] [address] MCHC 34.7 G/dL Normal 33.0-37.0 [facility] ([place]) Comment on above: Performed By: #### G FR, LIPID, HFP, A1C, IBC, TSH, CBC, ANEU, FT4, FERR, ADIFF, CMP, FE, VIDH, FT3 #### [address] [address] #### FOL, B12 #### [place] [address] MCV (RBC) [Entitic vol] 92.8 fL Normal 80.0-94.0 [facility] ([place]) Comment on above: Performed By: #### G FR, LIPID, HFP, A1C, IBC, TSH, CBC, ANEU, FT4, FERR, ADIFF, CMP, FE, VIDH, FT3 #### [place] [address] #### FOL, B12 #### [place] [address] Platelet 169 10 3/mcL Normal 130-400 [facility] ([place]) Comment on above: Performed By: #### G FR, LIPID, HFP, A1C, IBC, TSH, CBC, ANEU, FT4, FERR, ADIFF, CMP, FE, VIDH, FT3 #### [place] [address] #### FOL, B12 #### [address] [address] Platelet mean volume (Bld) [Entitic vol] 9.7 fL Normal 7.4-10.4 [facility] ([place]) Comment on above: Performed By: #### G FR, LIPID, HFP, A1C, IBC, TSH, CBC, ANEU, FT4, FERR, ADIFF, CMP, FE, VIDH, FT3 #### [place] [address] #### FOL, B12 #### [address] [address] RBC 4.01 10 6/mcL Low 4.20-5.40 [facility] ([place]) Comment on above: Performed By: #### G FR, LIPID, HFP, A1C, IBC, TSH, CBC, ANEU, FT4, FERR, ADIFF, CMP, FE, VIDH, FT3 #### [address] [address] #### FOL, B12 #### [place] [address] WBC 10.8 10 3/mcL Normal 4.6-10.8 [facility] ([place]) Comment on above: Performed By: #### G FR, LIPID, HFP, A1C, IBC, TSH, CBC, ANEU, FT4, FERR, ADIFF, CMP, FE, VIDH, FT3 #### [address] [address] #### FOL, B12 #### [place] [address] Gel ABOon 03-30-2023 ABO/Rh Interp Positive Invalid Interpretation Code [facility] ([place]) Comment on above: Performed By: #### G FR, LIPID, HFP, A1C, IBC, TSH, CBC, ANEU, FT4, FERR, ADIFF, CMP, FE, VIDH, FT3 #### [address] [address] #### FOL, B12 #### [place] [address] Gel ABSon 03-30-2023 Antibody Screen Gel Negative Normal [facility] ([place]) Comment on above: Performed By: #### G FR, LIPID, HFP, A1C, IBC, TSH, CBC, ANEU, FT4, FERR, ADIFF, CMP, FE, VIDH, FT3 #### [address] [address] #### FOL, B12 #### [place] [address] LABORATORYOrdered By: Lilia Espinoza on 03-30-2023 ABO/Rh [...] Group B Strep (PCR) Negative Normal Negative [facility] ([place]) Comment on above: Performed By: #### G BSPCR #### [address] [address] Group B Strep PCR Int Normal [facility] ([place]) Comment on above: Result Comment: Grou [...] Below Performed By: #### G BSPCR #### [address] [address] RPRon 03-10-2023 Reagin Ab RPR Ql (S) Non-Reactive Normal Non-Reactive [facility] ([place]) Comment on above: Result Comment: The [...] FERR, ADIFF, CMP, FE, VIDH, FT3 #### [address] [address] #### FOL, B12 #### [address] [address] .Auto Diffon 03-09-2023 Basophil, Absolute 0.0 10 3/mcL Normal 0.0-0.2 [facility] ([place] Comment on above: Performed By: #### G FR, LIPID, HFP, A1C, IBC, TSH, CBC, ANEU, FT4, FERR, ADIFF, CMP, FE, VIDH, FT3 #### [address] [address] #### FOL, B12 #### [address] [address] Basophils/100 WBC (Bld) 0.2 % Normal 0.0-2.5 [facility] ([place]) Comment on above: Performed By: #### G FR, LIPID, HFP, A1C, IBC, TSH, CBC, ANEU, FT4, FERR, ADIFF, CMP, FE, VIDH, FT3 #### [address] [address] #### FOL, B12 #### [address] [address] Eosinophil, Absolute 0.0 10 3/mcL Normal 0.0-0.4 [facility] ([place]) Comment on above: Performed By: #### G FR, LIPID, HFP, A1C, IBC, TSH, CBC, ANEU, FT4, FERR, ADIFF, CMP, FE, VIDH, FT3 #### [address] [address] #### FOL, B12 #### [address] [address] Eosinophils/100 WBC (Bld) 0.3 % Normal 0.0-7.0 [facility] ([place]) Comment on above: Performed By: #### G FR, LIPID, HFP, A1C, IBC, TSH, CBC, ANEU, FT4, FERR, ADIFF, CMP, FE, VIDH, FT3 #### [address] [address] #### FOL, B12 #### [address] [address] Lymphocyte, Absolute 1.5 10 3/mcL Normal 0.8-3.9 [facility] ([place]) Comment on above: Performed By: #### G FR, LIPID, HFP, A1C, IBC, TSH, CBC, ANEU, FT4, FERR, ADIFF, CMP, FE, VIDH, FT3 #### [address] [address] #### FOL, B12 #### [address] [address] Lymphocytes/100 WBC (Bld) 15.8 % Normal 10.0-50.0 [facility] ([place]) Comment on above: Performed By: #### G FR, LIPID, HFP, A1C, IBC, TSH, CBC, ANEU, FT4, FERR, ADIFF, CMP, FE, VIDH, FT3 #### [address] [address] #### FOL, B12 #### [address] [address] Monocyte, Absolute 0.6 10 3/mcL Normal 0.2-1.0 [facility] [place] Comment on above: Performed By: #### G FR, LIPID, HFP, A1C, IBC, TSH, CBC, ANEU, FT4, FERR, ADIFF, CMP, FE, VIDH, FT3 #### [address] [address] #### FOL, B12 #### [address] [address] Monocytes/100 WBC (Bld) 6.6 % Normal 1.7-13.0 [facility] ([place]) Comment on above: Performed By: #### G FR, LIPID, HFP, A1C, IBC, TSH, CBC, ANEU, FT4, FERR, ADIFF, CMP, FE, VIDH, FT3 #### [address] [address] #### FOL, B12 #### [address] [address] Neutrophils/100 WBC (Bld) 77.1 % Normal 37.0-80.0 [facility] ([place]) Comment on above: Performed By: #### G FR, LIPID, HFP, A1C, IBC, TSH, CBC, ANEU, FT4, FERR, ADIFF, CMP, FE, VIDH, FT3 #### [address] [address] #### FOL, B12 #### [address] [address] .NEUABSon 03-09-2023 Neutrophil, Absolute 7.4 10 3/mcL High 2.9-6.2 [facility] ([place]) Comment on above: Performed By: #### G FR, LIPID, HFP, A1C, IBC, TSH, CBC, ANEU, FT4, FERR, ADIFF, CMP, FE, VIDH, FT3 #### [address] [address] #### FOL, B12 #### [address] [address] CBCon 03-09-2023 Erythrocyte distribution width (RBC) [Ratio] 13.9 % Normal 11.5-14.5 [facility] ([place]) Comment on above: Performed By: #### G FR, LIPID, HFP, A1C, IBC, TSH, CBC, ANEU, FT4, FERR, ADIFF, CMP, FE, VIDH, FT3 #### [address] [address] #### FOL, B12 #### [address] [address] Hematocrit (Bld) [Volume fraction] 36.3 % Low 37.0-47.0 [facility] ([place]) Comment on above: Performed By: #### G FR, LIPID, HFP, A1C, IBC, TSH, CBC, ANEU, FT4, FERR, ADIFF, CMP, FE, VIDH, FT3 #### [address] [address] #### FOL, B12 #### [address] [address] Hgb 12.6 G/dL Normal 12.0-16.0 [facility] ([place]) Comment on above: Performed By: #### G FR, LIPID, HFP, A1C, IBC, TSH, CBC, ANEU, FT4, FERR, ADIFF, CMP, FE, VIDH, FT3 #### [address] [address] #### FOL, B12 #### [address] [address] MCH (RBC) [Entitic mass] 32.4 pg High 27.0-31.2 [facility] ([place]) Comment on above: Performed By: #### G FR, LIPID, HFP, A1C, IBC, TSH, CBC, ANEU, FT4, FERR, ADIFF, CMP, FE, VIDH, FT3 #### [place] [address] #### FOL, B12 #### [place] [address] MCHC 34.7 G/dL Normal 33.0-37.0 [facility] ([place]) Comment on above: Performed By: #### G FR, LIPID, HFP, A1C, IBC, TSH, CBC, ANEU, FT4, FERR, ADIFF, CMP, FE, VIDH, FT3 #### [place] [address] #### FOL, B12 #### [address] [address] MCV (RBC) [Entitic vol] 93.3 fL Normal 80.0-94.0 [facility] ([place]) Comment on above: Performed By: #### G FR, LIPID, HFP, A1C, IBC, TSH, CBC, ANEU, FT4, FERR, ADIFF, CMP, FE, VIDH, FT3 #### [place] [address] #### FOL, B12 #### [address] [address] Platelet 171 10 3/mcL Normal 130-400 [facility] ([place]) Comment on above: Performed By: #### G FR, LIPID, HFP, A1C, IBC, TSH, CBC, ANEU, FT4, FERR, ADIFF, CMP, FE, VIDH, FT3 #### [place] [address] #### FOL, B12 #### [address] [address] Platelet mean volume (Bld) [Entitic vol] 8.5 fL Normal 7.4-10.4 [facility] ([place]) Comment on above: Performed By: #### G FR, LIPID, HFP, A1C, IBC, TSH, CBC, ANEU, FT4, FERR, ADIFF, CMP, FE, VIDH, FT3 #### [place] [address] #### FOL, B12 #### [address] [address] RBC 3.89 10 6/mcL Low 4.20-5.40 [facility] ([place]) Comment on above: Performed By: #### G FR, LIPID, HFP, A1C, IBC, TSH, CBC, ANEU, FT4, FERR, ADIFF, CMP, FE, VIDH, FT3 #### [place] [address] #### FOL, B12 #### [place] [address] WBC 9.7 10 3/mcL Normal 4.6-10.8 [facility] ([place]) Comment on above: Performed By: #### G FR, LIPID, HFP, A1C, IBC, TSH, CBC, ANEU, FT4, FERR, ADIFF, CMP, FE, VIDH, FT3 #### [place] [address] #### FOL, B12 #### [address] [address] LABORATORYOrdered By: Isabella Eng on 03-09-2023 Group [...] 03-06-2023 Amnisure Negative Normal Negative [facility] ([place]) Comment on above: Performed By: #### G FR, LIPID, HFP, A1C, IBC, TSH, CBC, ANEU, FT4, FERR, ADIFF, CMP, FE, VIDH, FT3 #### [address] [address] #### FOL, B12 #### [address] [address] LABORATORYOrdered By: Lilia Espinoza on 03-06-2023 Kujli-6-Sjiuvrbvontok .placental Ql (Vag fld) Negative (03/06/23 5:57 [...] SS CNCOon 11-12-2022 CNCO Letter Text Normal [facility] Bacteria Ur Culton 3 Bacteria identified Cx Nom (U) CULTURE, URINE: <10,000 CFU/ml Normal Urogenital Den Normal [facility] Comment on above: Performed By: #### 6 30-4 #### [facility] CLIA [id number] [address] ED NOTEon 10-29-2022 ED NOTE HNO ID: [id number] Author: Martinez Crouch RN Service: ? Author Type: Registered Nurse Type: ED Notes Filed: 10/28/2022 10:37 PM Note Text: Bed: 26-ED Expected date: Expected time: Means of arrival: Comments: triage Normal [facility] ED PROV NOTEon 10-29-2022 ED PROV NOTE HNO ID: [id number] Author: Danitza Reis DO Service: Emergency Medicine [...] CHRISTINA M 10/29/22 0323 Normal [facility] ED PROV NOTE HNO ID: [id number] Author: Danitza Reis DO Service: Emergency Medicine [...] was dehydrated. She follows with OB at [facility] in [place]. complicated by hyperemesis gravidarum and bleeding in [...] (more content not included)... Normal [facility] EKGon 10-29-2022 Electrocardiogram Ventricular Rate : 129 BPM Atrial Rate : 129 BPM P-R Interval : 130 ms QRS Duration : 70 ms Q-T Interval : 300 ms QTC Calculation(Bazett) : 439 ms Calculated P [place] : 31 degrees Calculated R [place] : 66 degrees Calculated T [place] : -[address] & T WAVE ABNORMALITY, CONSIDER INFERIOR ISCHEMIA ST & T WAVE ABNORMALITY, CONSIDER ANTEROLATERAL ISCHEMIA ABNORMAL ECG WHEN COMPARED WITH ECG OF 31-MAY-2022 13:06, VENT. RATE HAS INCREASED BY 58 BPM T WAVE INVERSION NOW EVIDENT IN INFERIOR LEADS INVERTED T WAVES HAVE REPLACED NONSPECIFIC T WAVE ABNORMALITY IN ANTEROLATERAL LEADS Confirmed by DO REIS CHRISTINA ([id number]) on 10/29/2022 1:44:37 AM NAME : LUZ OLIVEIRA PID : [id number] : 2000 Gender : Female Race : [...] ANTEROLATERAL LEADS Confirmed by DO REIS CHRISTINA ([id number]) on 10/29/2022 1:44:37 AM Test Reason : Location : 4 : [facility] ED26 Overread By : DO REIS CHRISTINA Edited By : DO REIS CHRISTINA Referred By : , Acquired by : KASHIF JOHNSON Normal [facility] Urinalysis complete panel (U )on 10-29-2022 Bacteria LM.HPF (Urine sed) [#/Area] Few Abnormal None Seen [facility] Comment on above: Order Comment: Speci men Type: URINE SPECIMENOrdering Facility: [facility] Address: [address] [place] [address] Performed By: #### 2 4356-8 ####[facility]ORATORYCLIA [id number] [place] [address] [place] Bilirubin Ql (U) Negative Normal Negative [facility] Comment on above: Order Comment: Speci men Type: URINE SPECIMENOrdering Facility: [facility] Address: [address] [place] [address] Performed By: #### 2 4356-8 ####[facility]ATORYCLIA [id number] [address] [place] Clarity (Unsp spec) Turbid Abnormal Clear [facility] Comment on above: Order Comment: Speci men Type: URINE SPECIMENOrdering Facility: [facility] Address: [address] [place] [address] Performed By: #### 2 4356-8 ####[facility]ATORYCLIA [id number] [address] [place] Color (U) Yellow Normal yellow [facility] Comment on above: Order Comment: Speci men Type: URINE SPECIMENOrdering Facility: [facility] Address: [address] [place] [address] Performed By: #### 2 4356-8 ####[facility]ATORYCLIA [id number] [address] [place] Epithelial cells LM.HPF (Urine sed) [#/Area] Few Normal [facility] Comment on above: Order Comment: Speci men Type: URINE SPECIMENOrdering Facility: [facility] Address: [address] [place] [address] Performed By: #### 2 4356-8 ####[facility]ORYCLIA [id number] [address] [place] Glucose Test strip (U) [Mass/Vol] Negative Normal Trace, Negative [facility] Comment on above: Order Comment: Speci men Type: URINE SPECIMENOrdering Facility: [facility] Address: [address] [place] [address] Performed By: #### 2 4356-8 ####[facility]ATORYCLIA [id number] [address] STATES [facility] Hemoglobin Ql (U) 1+ Abnormal Negative, Trace [facility] Comment on above: Order Comment: Speci men Type: URINE SPECIMENOrdering Facility: [facility] Address: [address] [place] [address] Performed By: #### 2 4356-8 ####[facility]ATORYCLIA [id number] [address] Ketones Ql (U) 4+ Abnormal Negative, Trace [facility] Comment on above: Order Comment: Speci men Type: URINE SPECIMENOrdering Facility: [facility] Address: [address] [place] [address] Performed By: #### 2 4356-8 ####[facility]ATORYCLIA [id number] [address] [place] Leukocyte esterase Test strip Ql (U) 25 Misti/mL Normal Negative, 25 Misti/mL [facility] Comment on above: Order Comment: Speci men Type: URINE SPECIMENOrdering Facility: [facility] Address: [address] [place] [address] Performed By: #### 2 4356-8 ####[facility]ATORYCLIA [id number] [address] [place] Nitrite Ql (U) Negative Normal Negative [facility] Comment on above: Order Comment: Speci men Type: URINE SPECIMENOrdering Facility: [facility] Address: [address] [place] [address] Performed By: #### 2 4356-8 ####[facility]ATORYCLIA [id number] [address] [place] pH (U) 6.0 [pH] Normal 5.0-8.0 [facility] Comment on above: Order Comment: Speci men Type: URINE SPECIMENOrdering Facility: [facility] Address: [address] [place] [address] Performed By: #### 2 4356-8 ####[facility]ORYCLIA [id number] [address] Protein (U) [Mass/Vol] 1+ Abnormal Trace, Negative [facility] Comment on above: Order Comment: Speci men Type: URINE SPECIMENOrdering Facility: [facility] Address: [address] [place] [address] Performed By: #### 2 4356-8 ####[facility]ATORYCLIA [id number] [address] RBC LM.HPF (Urine sed) [#/Area] 6-10 /HPF Abnormal 0-3 /HPF [facility] Comment on above: Order Comment: Speci men Type: URINE SPECIMENOrdering Facility: [facility] Address: [address] [place] [address] Performed By: #### 2 4356-8 ####[facility]ORATORYCLIA [id number] [address] STATES [facility] Specific gravity (U) [Rel density] 1.029 Normal 1.005-1.030 [facility] Comment on above: Order Comment: Speci men Type: URINE SPECIMENOrdering Facility: [facility] Address: [address] [place] [address] Performed By: #### 2 4356-8 ####[facility]ATORYCLIA [id number] [address] Urobilinogen Ql (U) Normal Normal Negative [facility] Comment on above: Order Comment: Speci men Type: URINE SPECIMENOrdering Facility: [facility] Address: [address] [place] [address] Performed By: #### 2 4356-8 ####[facility]ATORYCLIA [id number] [address] [place] WBC LM.HPF (Urine sed) [#/Area] 0-5 /HPF Normal 0-5 /HPF [facility] Comment on above: Order Comment: Speci men Type: URINE SPECIMENOrdering Facility: [facility] Address: [address] [place] [address] Performed By: #### 2 4356-8 ####[facility]ORATORYCLIA [id number] [place] [address] [place] Basic metabolic 2000 panelon 10-28-2022 Anion gap [Moles/Vol] 15 mmol/L Normal 9-18 [facility] Comment on above: Order Comment: Speci men Type: BLOOD SPECIMENOrdering Facility: [facility] Address: [address] [place] [address] Performed By: #### 2 4321-2, ####[facility]ORATORYCLIA [id number] [place] [address] [place] Calcium [Mass/Vol] 10.1 mg/dL Normal 8.5-10.2 [facility] Comment on above: Order Comment: Speci men Type: BLOOD SPECIMENOrdering Facility: [facility] Address: [address] [place] [address] Performed By: #### 2 432-2, ####[facility]ORATORYCLIA [id number] [place] [address] [place] Chloride [Moles/Vol] 102 mmol/L Normal 97-105 [facility] Comment on above: Order Comment: Speci men Type: BLOOD SPECIMENOrdering Facility: [facility] Address: [address] [place] [address] Performed By: #### 2 4321-2, ####[facility]ORATORYCLIA [id number] [place] [address] [place] CO2 [Moles/Vol] 22 mmol/L Normal 22-30 [facility] Comment on above: Order Comment: Speci men Type: BLOOD SPECIMENOrdering Facility: [facility] Address: [address] [place] [address] Performed By: #### 2 4321-2, ####[facility] LABORATORYCLIA [id number] [place] [address] [place] [facility] Creatinine [Mass/Vol] 0.61 mg/dL Normal 0.58-0.96 [facility] Comment on above: Order Comment: Eloise lopez Type: BLOOD SPECIMENOrdering Facility: [facility] Address: [address] [place] [address] Performed By: #### 2 43210-12, ####[facility] SYSTEMIA [id number] [place] [address] [facility] ESTIMATED GLOMERULAR FILTRATION RATE 129 mL/min/1.73m??? Normal >=60 [facility] Comment on above: Order Comment: Eloise lopez Type: BLOOD SPECIMENOrdering Facility: [facility] Address: [address] [place] [address] Result Comment: Tierra mated Glomerular Filtration Rate [...] reflect actual GFR. Performed By: #### 2 ####[facility] SYSTEMIA [id number] [place] [address] [place] [facility] Glucose [Mass/Vol] 86 mg/dL Normal 74-99 [facility] Comment on above: Order Comment: Eloise lopez Type: BLOOD SPECIMENOrdering Facility: [facility] Address: [address] [place] [address] Result Comment: The [place] Diabetes Association (ADA) provides guidance for cutoff [...] Standards of Medical Care in Diabetes 2016, [place] [employer]. Diabetes Care. 2016.39(Suppl 1). Performed By: #### 2 4320-2, ####[facility]ORATORYCLIA [id number] [place] [address] [place] Potassium [Moles/Vol] 3.2 mmol/L Low 3.7-5.1 [facility] Comment on above: Order Comment: Mar[place]osai jessica Type: BLOOD SPECIMENOrdering Facility: [facility] Address: [address] [place] [address] Performed By: #### 2 4320-11, ####[facility]ORATORYCLIA [id number] [address] STATES OF [facility] Sodium [Moles/Vol] 139 mmol/L Normal 136-144 [facility] Comment on above: Order Comment: Eloise lopez Type: BLOOD SPECIMENOrdering Facility: [facility] Address: [address] [place] [address] Performed By: #### 2 4320-11, ####[facility]ORATORYCLIA [id number] [address] STATES [facility] Urea nitrogen [Mass/Vol] 5 mg/dL Low 7-21 [facility] Comment on above: Order Comment: [place] men Type: BLOOD SPECIMENOrdering Facility: [facility] Address: [address] [place] [place] [address] Performed By: #### 2 4320-11, ####[facility]ATORYCLIA [id number] [address] [place] CBC W Auto Differential pane l (Bld)on 10-28-2022 Basophils (Bld) [#/Vol] 10*3/uL Normal <0.11 [facility] Comment on above: Order Comment: [place]os[place] men Type: BLOOD SPECIMENOrdering Facility: [facility] Address: [address] [place] [address] Performed By: #### 5 7021-8 ####[facility]ORATORYCLIA [id number] [address] Basophils/100 WBC (Bld) 0.1 % Normal [facility] Comment on above: Order Comment: Speci men Type: BLOOD SPECIMENOrdering Facility: [facility] Address: [address] [place] [address] Performed By: #### 5 7021-8 ####[facility]ATORYCLIA [id number] [address] Differential cell count method Nom (Bld) Auto Normal [facility] Comment on above: Order Comment: Speci men Type: BLOOD SPECIMENOrdering Facility: [facility] Address: [address] [place] [address] Performed By: #### 5 7021-8 ####[facility]ORATORYCLIA [id number] [address] [place] Eosinophils (Bld) [#/Vol] 10*3/uL Normal <0.46 [facility] Comment on above: Order Comment: Speci men Type: BLOOD SPECIMENOrdering Facility: [facility] Address: [address] [place] [address] Performed By: #### 5 7021-8 ####[facility]ORATORYCLIA [id number] [address] Eosinophils/100 WBC (Bld) 0.1 % Normal [facility] Comment on above: Order Comment: Speci men Type: BLOOD SPECIMENOrdering Facility: [facility] Address: [address] [place] [address] Performed By: #### 5 7021-8 ####[facility]ATORYCLIA [id number] [address] Erythrocyte distribution width (RBC) [Ratio] 13.8 % Normal 11.5-15.0 [facility] Comment on above: Order Comment: Speci men Type: BLOOD SPECIMENOrdering Facility: [facility] Address: [address] [place] [place] [address] Performed By: #### 5 7021-8 ####[facility]ORATORYCLIA [id number] [address] OF [facility] Hematocrit (Bld) [Volume fraction] 38.2 % Normal 36.0-46.0 [facility] Comment on above: Order Comment: Speci men Type: BLOOD SPECIMENOrdering Facility: [facility] Address: [address] [place] [address] Performed By: #### 5 7021-8 ####[facility]ORATORYCLIA [id number] [address] [place] Hemoglobin (Bld) [Mass/Vol] 13.5 g/dL Normal 11.5-15.5 [facility] Comment on above: Order Comment: Speci men Type: BLOOD SPECIMENOrdering Facility: [facility] Address: [address] [place] [address] Performed By: #### 5 7021-8 ####[facility]ORATORYCLIA [id number] [address] [place] Immature granulocytes (Bld) [#/Vol] 0.04 10*3/uL Normal <0.10 [facility] Comment on above: Order Comment: Speci men Type: BLOOD SPECIMENOrdering Facility: [facility] Address: [address] [place] [address] Performed By: #### 5 7021-8 ####[facility]ORATORYCLIA [id number] [address] [place] Immature granulocytes/100 WBC (Bld) 0.5 % Normal [facility] Comment on above: Order Comment: Speci men Type: BLOOD SPECIMENOrdering Facility: [facility] Address: [address] [place] [address] Performed By: #### 5 7021-8 ####[facility] LABORATORYCLIA [id number] [address] [place] Lymphocytes (Bld) [#/Vol] 1.53 10*3/uL Normal 1.00-4.00 [facility] Comment on above: Order Comment: Speci men Type: BLOOD SPECIMENOrdering Facility: [facility] Address: [address] [place] [address] Performed By: #### 5 7021-8 ####[facility] LABORATORYCLIA [id number] [address] Lymphocytes/100 WBC (Bld) 18.8 % Normal [facility] Comment on above: Order Comment: Speci men Type: BLOOD SPECIMENOrdering Facility: [facility] Address: [address] [place] [address] Performed By: #### 5 7021-8 ####[facility]ORATORYCLIA [id number] [address] STATES OF [facility] MCH (RBC) [Entitic mass] 31.6 pg Normal 26.0-34.0 [facility] Comment on above: Order Comment: Speci men Type: BLOOD SPECIMENOrdering Facility: [facility] Address: [address] [place] [address] Performed By: #### 5 7021-8 ####[facility]ORATORYCLIA [id number] [address] STATES [facility] MCHC (RBC) [Mass/Vol] 35.3 g/dL Normal 30.5-36.0 [facility] Comment on above: Order Comment: Speci men Type: BLOOD SPECIMENOrdering Facility: [facility] Address: [address] [place] [address] Performed By: #### 5 7021-8 ####[facility]ATORYCLIA [id number] [address] STATES [place] MCV (RBC) [Entitic vol] 89.5 fL Normal 80.0-100.0 [facility] Comment on above: Order Comment: Speci men Type: BLOOD SPECIMENOrdering Facility: [facility] Address: [address] [place] [address] Performed By: #### 5 7021-8 ####[facility]ATORYCLIA [id number] [address] STATES [place] Monocytes (Bld) [#/Vol] 0.51 10*3/uL Normal <0.87 [facility] Comment on above: Order Comment: Speci men Type: BLOOD SPECIMENOrdering Facility: [facility] Address: [address] [place] [address] Performed By: #### 5 7021-8 ####[facility]ORATORYCLIA [id number] [address] Monocytes/100 WBC (Bld) 6.3 % Normal [facility] Comment on above: Order Comment: Speci men Type: BLOOD SPECIMENOrdering Facility: [facility] Address: [address] [place] [address] Performed By: #### 5 7021-8 ####[facility]ATORYCLIA [id number] [address] STATES [place] Neutrophils (Bld) [#/Vol] 6.06 10*3/uL Normal 1.45-7.50 [facility] Comment on above: Order Comment: Speci men Type: BLOOD SPECIMENOrdering Facility: [facility] Address: [address] [place] [address] Performed By: #### 5 7021-8 ####[facility]ORATORYCLIA [id number] [address] Neutrophils/100 WBC (Bld) 74.2 % Normal [facility] Comment on above: Order Comment: Speci men Type: BLOOD SPECIMENOrdering Facility: [facility] Address: [address] [place] [address] Performed By: #### 5 7021-8 ####[facility]ATORYCLIA [id number] [address] STATES [place] Nucleated RBC (Bld) [#/Vol] 10*3/uL Normal <0.01 [facility] Comment on above: Order Comment: Speci men Type: BLOOD SPECIMENOrdering Facility: [facility] Address: [address] [place], [place] [address] Performed By: #### 5 7021-8 ####[facility]ATORYCLIA [id number] [address] STATES [place] Nucleated RBC/100 WBC (Bld) [Ratio] 0.0 /100 WBC Normal [facility] Comment on above: Order Comment: Speci men Type: BLOOD SPECIMENOrdering Facility: [facility] Address: [address] [place] [address] Performed By: #### 5 7021-8 ####[facility]ORATORYCLIA [id number] [address] STATES OF [place] Platelet mean volume (Bld) [Entitic vol] 10.2 fL Normal 9.0-12.7 [facility] Comment on above: Order Comment: Speci men Type: BLOOD SPECIMENOrdering Facility: [facility] Address: [address] [place] [address] Performed By: #### 5 7021-8 ####[facility]ATORYCLIA [id number] [address] STATES [place] Platelets (Bld) [#/Vol] 191 10*3/uL Normal 150-400 [facility] Comment on above: Order Comment: Speci men Type: BLOOD SPECIMENOrdering Facility: [facility] Address: [address] [place] [address] Performed By: #### 5 7021-8 ####[facility]ORATORYCLIA [id number] [place] [address] [place] RBC (Bld) [#/Vol] 4.27 10*6/uL Normal 3.90-5.20 [facility] Comment on above: Order Comment: Speci men Type: BLOOD SPECIMENOrdering Facility: [facility] Address: [address] [place] [address] Performed By: #### 5 7021-8 ####[facility]ORATORYCLIA [id number] [address] STATES [place] WBC (Bld) [#/Vol] 8.16 10*3/uL Normal 3.70-11.00 [facility] Comment on above: Order Comment: Speci men Type: BLOOD SPECIMENOrdering Facility: [facility] Address: [place] [address] Performed By: #### 5 7021-8 ####[facility]ORATORYCLIA [id number] [place] [address] [place] ED Triage Noteon 10-28-2022 ED Triage Note HNO ID: [id number] Author: Dax Stevenson APRN.CNP Service: Emergency Medicine [...] CBC CMP EKG Urinalysis SIGNATURE: Dax Stevenson APRN.HOSPITAL INTERN Normal [facility] Magnesium SerPl-mCncon 10-28 Magnesium [Mass/Vol] 1.8 mg/dL Normal 1.7-2.3 [facility] Comment on above: Order Comment: Speci men Type: BLOOD SPECIMENOrdering Facility: [facility] Address[facility] [facility] [place] [address] Performed By: #### 2 4321-2, 07956-6 ####[facility]ORATORYCLIA [id number] [address] STATES [place] URINE OB DIP B/Oon 3 Glucose Ql (U) Negative Neg mg/dL [facility] Protein.monoclonal (U) [Mass/Vol] TRACE Abnormal Neg mg/dL [facility] CNCOon 08-21-2022 CNCO Letter Text Normal [facility] Bacteria Ur Culton 2 Bacteria identified Cx Nom (U) ORGANISM ID: 1 50,000-<100,000 CFU/ml Normal urogenital den Normal [facility] Comment on above: Performed By: #### 7 3752-8, 31682-5, 12601-1 #### [facility] CLIA [id number] [facility] [address] OF [place] C. trachomatis+N. gonorrhoea e DNA CHICHO+probe Ql (Unsp spec)on 08-19-2022 C. trachomatis DNA CHICHO+probe Ql (Unsp spec) Negative Normal Negative for Chlamydia trachomatis by amplificaton [facility] Comment on above: Order Comment: Speci men Type: SWAB [facility] Address: [address] [place] [address] Performed By: #### 3 6902-5 #### [facility] CLIA [id number] [address] [place] [address] OF [place] N. gonorrhoeae DNA CHICHO+probe Ql (Unsp spec) Negative Normal Negative for Neisseria gonorrhoeae by amplification [facility] Comment on above: Order Comment: Speci men Type: SWAB [facility] Address: [address] [address] Performed By: #### 3 6902-5 #### [facility] CLIA [id number] [address] [place] [address] [place] CBC panel Auto (Bld)on 08-19 Erythrocyte distribution width (RBC) [Ratio] 12.4 % Normal 11.5-15.0 [facility] Comment on above: Order Comment: Speci men Type: BLOOD SPECIMEN [facility] Address: [address] [address] Performed By: #### 7 3752-8, 90150-6, 17171-7 #### [facility] CLIA [id number] [address] [place] [address] [place] Hematocrit (Bld) [Volume fraction] 40.5 % Normal 36.0-46.0 [facility] Comment on above: Order Comment: Speci men Type: BLOOD SPECIMEN [facility] Address: [address] Performed By: #### 7 3752-8, 95756-9, 31488-9 #### [facility] CLIA [id number] [address] [place] [address] [place] Hemoglobin (Bld) [Mass/Vol] 13.6 g/dL Normal 11.5-15.5 [facility] Comment on above: Order Comment: Speci men Type: BLOOD SPECIMEN [facility] Address: [address] Performed By: #### 7 3752-8, 24026-2, 45150-6 #### [facility] CLIA [id number] [address] [place] [address] [place] MCH (RBC) [Entitic mass] 30.8 pg Normal 26.0-34.0 [facility] Comment on above: Order Comment: Speci men Type: BLOOD SPECIMEN [facility] Address: [address] [address] Performed By: #### 7 3752-8, 63213-6, 19108-6 #### [facility] CLIA [id number] [address] [place] [address] [place] MCHC (RBC) [Mass/Vol] 33.6 g/dL Normal 30.5-36.0 [facility] Comment on above: Order Comment: Speci men Type: BLOOD SPECIMEN [facility] Address: [address] Performed By: #### 7 3752-8, 86367-9, 66120-7 #### [facility] CLIA [id number] [address] [place] [address] [place] MCV (RBC) [Entitic vol] 91.8 fL Normal 80.0-100.0 [facility] Comment on above: Order Comment: Speci men Type: BLOOD SPECIMEN [facility] Address: [address] Performed By: #### 7 3752-8, 28466-8, 84840-7 #### [facility] CLIA [id number] [address] [place] [address] [place] Nucleated RBC (Bld) [#/Vol] 10*3/uL Normal <0.01 [facility] Comment on above: Order Comment: Speci men Type: BLOOD SPECIMEN [facility] Address: [address] Performed By: #### 7 3752-8, 89832-6, 27963-5 #### [facility] CLIA [id number] [address] [place] [address] [place] Platelet mean volume (Bld) [Entitic vol] 10.5 fL Normal 9.0-12.7 [facility] Comment on above: Order Comment: Speci men Type: BLOOD SPECIMEN [facility] Address: [address] Performed By: #### 7 3752-8, 20414-6, 41371-4 #### [facility] CLIA [id number] [address] [place] [address] [place] Platelets (Bld) [#/Vol] 247 10*3/uL Normal 150-400 [facility] Comment on above: Order Comment: Speci men Type: BLOOD SPECIMEN [facility] Address: [address] Performed By: #### 7 3752-8, 46257-2, 96330-7 #### [facility] CLIA [id number] [address] [place] [address] [place] RBC (Bld) [#/Vol] 4.41 10*6/uL Normal 3.90-5.20 [facility] Comment on above: Order Comment: Speci men Type: BLOOD SPECIMEN [facility] Address: [address] [place] [address] Performed By: #### 7 3752-8, 17804-1, 22898-7 #### [facility] CLIA [id number] [address] [place] [address] OF [facility] WBC (Bld) [#/Vol] 7.20 10*3/uL Normal 3.70-11.00 [facility] Comment on above: Order Comment: Speci men Type: BLOOD SPECIMEN [facility] Address: [address] [place] [address] Performed By: #### 7 3752-8, 91192-2, 23820-7 #### [facility] CLIA [id number] [address] [place] [address] STATES OF [facility] Erythrocyte distribution width (RBC) [Ratio] 12.4 % 11.5 - 15.0 % [facility] Hematocrit (Bld) [Volume fraction] 40.5 % 36.0 - 46.0 % [facility] Hemoglobin (Bld) [Mass/Vol] 13.6 g/dL 11.5 - 15.5 g/dL [facility] MCH (RBC) [Entitic mass] 30.8 pg 26.0 - 34.0 pg [facility] MCHC (RBC) [Mass/Vol] 33.6 g/dL 30.5 - 36.0 g/dL [facility] MCV (RBC) [Entitic vol] 91.8 fL 80.0 - 100.0 fL [facility] Nucleated RBC (Bld) [#/Vol] <0.01 k/uL [facility] Platelet mean volume (Bld) [Entitic vol] 10.5 fL 9.0 - 12.7 fL [facility] Platelets (Bld) [#/Vol] 247 10*3/uL 150 - 400 k/uL [facility] RBC (Bld) [#/Vol] 4.41 10*6/uL 3.90 - 5.2 0 m/uL [facility] WBC (Bld) [#/Vol] 7.20 10*3/uL 3.70 - 11. 00 k/uL [facility] HBV surface Ab IA Ql (S)on 1 10-19-2021 HBV surface Ag Ql (S) Negative Normal Negative [facility] Comment on above: Order Comment: Speci men Type: BLOOD SPECIMEN [facility] Address: [address] [place] [address] Performed By: #### 7 3752-8, 74277-1, 10743-3 #### [facility] CLIA [id number] [address] [place] [address] [place] HCV Ab Ser Qlon 08-19-2022 HCV Ab Ql (S) Negative Normal Negative [facility] Comment on above: Order Comment: Speci men Type: BLOOD SPECIMEN [facility]: [facility] Address: [address] [place] [address] Result Comment: The result suggests no evidence of active infection with Hepatitis C virus. Should recent infection be suspected, repeat testing may be considered 4-6 weeks after this draw. Performed By: #### 7 3752-8, 69022-1, 53338-0 #### [facility] CLIA [id number] [address] [place] [address] [facility] [place] HIV 1+2 Ab IA Qlon 2 HIV 1 and 2 Ab IA.rapid Nom Normal [facility] Comment on above: Order Comment: Speci men Type: BLOOD SPECIMEN [facility] Address: [address] [place] [address] Result Comment: Test not indicated. Performed By: #### 7 3752-8, 29115-8, 32269-7 #### [facility] CLIA [id number] [address] [place] [address] OF [place] HIV 1+2 Ab+HIV1 p24 Ag IA Ql Non-Reactive Normal Nonreactive [facility] Comment on above: Order Comment: Speci men Type: BLOOD SPECIMEN [facility]: [facility] Address: [address] [place] [address] Performed By: #### 7 3752-8, 46831-5, 60576-1 #### [facility] CLIA [id number] [address] [place] [address] [place] HIVINT Normal [facility] Comment on above: Order Comment: Speci men Type: BLOOD SPECIMEN [facility] Address: [address] [place] [address] Result Comment: No e vidence of HIV-1 or HIV-2 infection. Should recent infection be suspected, repeat testing may be considered 2-3 weeks after this draw. [place] Rev. Code 3701.243(E): This information has been [...] or diagnoses. Performed By: #### 7 3752-8, 61599-8, 20367-0 #### [facility] CLIA [id number] [address] [place] [address] [place] No Panel Informationon 08-19 [facility] PAP FLUID CERVICAL SCREENING on 08-19-2022 CASE REPORT Normal [facility] Comment on above: Order Comment: Speci men Type: FLUID SPECIMEN [facility] Address: [address] [place] [address] Result Comment: Gyne cologic Cytology Report Case: [id number] Authorizing Provider: Braulio Hollingsworth MD Collected: 08/19/2022 02:46 PM Ordering Location: Obstetrics/Gynecology Received: 08/20/2022 12:38 PM First Screen: Shelby Umaña, CT, ASCP Rescreen: Wandy Fraser, CT, ASCP Specimen: Pap, Mounter Hand, Screening, CERVICAL SCREENING FLUID Performed By: #### L [id number] #### [facility] CLIA [id number] [address] [place] [address] [place] CLINICAL HISTORY ABNORMAL PAP[LGSIL i n 2020 in [place] Normal [facility] Comment on above: Order Comment: Speci men Type: FLUID SPECIMEN [facility]: [facility] Address: [address] [place], [place] [address] Performed By: #### L [id number] #### [facility] CLIA [id number] [address] [place] [address] [place] CYTOLOGY INTERPRETATION PAP Normal [facility] Comment on above: Order Comment: Speci men Type: FLUID SPECIMEN [facility] Address: [address] [place] [address] Result Comment: Nega tive for Intraepithelial lesion or malignancy. Performed By: #### L [id number] #### [facility] CLIA [id number] [address] [place] [address] OF [facility] FINAL DIAGNOSIS Normal [facility] Comment on above: Order Comment: Speci men Type: FLUID SPECIMEN Ordering Facility: [facility] Address: [address] [place], [place] [address] Result Comment: A - CERVICAL SCREENING FLUID Satisfactory for interpretation, Excess blood Negative for Intraepithelial lesion or malignancy. Performed By: #### L [id number] #### [facility] CLIA [id number] [address] [place] [address] [place] FINAL PERFORMING LAB Normal [facility] Comment on above: Order Comment: Speci men Type: FLUID SPECIMEN Ordering Facility: [facility] Address: [address] [place], [place] [address] Result Comment: Tech nical component, resident advisor screening performed at [facility], [facility] [place] [id number] CLIA# [id number] Diagnostic interpretation performed at [facility], [address] [place] [address] CLIA# [id number] Control Panel Assembler: Adam Farah M.D. Performed By: #### L [id number] #### [facility] CLIA [id number] [address] [place] [address] [place] GROSS DESCRIPTION Normal [facility] Comment on above: Order Comment: Speci men Type: FLUID SPECIMEN [facility]: [facility] Address: [address] [place] [address] Result Comment: A. C ERVICAL SCREENING FLUID Glacial Acetic Acid added. Performed By: #### L [id number] #### [facility] CLIA [id number] [address] [place] [address] [place] HPV REQUESTED? Yes, Reflex HPV for ASCUS Normal [facility] Comment on above: Order Comment: Speci men Type: FLUID SPECIMEN [facility] Address: [address] [place] [address] Performed By: #### L [id number] #### [facility] CLIA [id number] [address] [place] [address] [place] LMP 06/21/2022() Normal [facility] Comment on above: Order Comment: Speci men Type: FLUID SPECIMEN [facility] Address: [address] [place] [address] Performed By: #### L [id number] #### [facility] CLIA [id number] [address] [place] [address] [place] PAP DISCLAIMER COMMENT The Pap Smear is a screening test for cervical cancer. False negative results occur with all screening tests, emphasizing the need for rescreening at recommended intervals, and clinical correlation. Normal [facility] Comment on above: Order Comment: Speci men Type: FLUID SPECIMEN [facility]: [facility] Address: [address] [address] Performed By: #### L [id number] #### [facility] CLIA [id number] [address] [place] [address] [place] PAP MANAGER RESPIRATORY CARE COMMENT This specimen has been analyzed by the ThinPrep Imaging System, an automated imaging and review system, which assists the laboratory in evaluating cells on ThinPrep Pap tests. Following automated imaging, selected francis from every slide are reviewed by a resident advisor. Normal [facility] Comment on above: Order Comment: Speci men Type: FLUID SPECIMEN [facility]: [facility] Address: [address] [place] [address] Performed By: #### L [id number] #### [facility] CLIA [id number] [address] [place] [address] OF [place] RUBELLA IGG ABon 08-19-2022 RUBELLA IGG AB, QUAL Positive Normal Positive [facility] Comment on above: Order Comment: Eloise lopez Type: BLOOD SPECIMEN [facility]ing [facility]: [facility] Address: [address] [place] [address] Result Comment: The result suggests recent or past exposure to Rubella virus or history of Rubella vaccination. Positive result may also be seen due to presence of passively-transferred antibodies. Please correlate with patient's history. Performed By: #### 7 3752-8, 52043-6, 09775-2 #### [facility] CLIA [id number] [address] STATES [place] Reagin and Treponema pallidu m IgG and IgM [Interp]on 08-19-2022 [place] INTERPRETATION Cannot exclude recent Treponemal infection if specimen collected within 7-10 days after appearance of suspect lesions or 2-3 weeks after an exposure. Clinical correlation is required. Normal [facility] Comment on above: Order Comment: Speci men Type: BLOOD SPECIMEN [facility]: [facility] Address: [address] [place], [place] [address] Performed By: #### 7 3752-8, 09255-7, 34690-3 #### [facility] CLIA [id number] [address] [place] [address] [place] T. pallidum IgG+IgM IA Ql (S) Non-Reactive Normal Nonreactive [facility] Comment on above: Order Comment: Speci men Type: BLOOD SPECIMEN Ordering Facility: [facility] Address: [address] [place] [address] Performed By: #### 7 3752-8, 05929-7, 36008-6 #### [facility] CLIA [id number] [address] [place] [address] [place] TSH BLDon 08-19-2022 TSH Qn 1.190 m[IU]/L 0.270 - 4.200 mIU/L [facility] TSH SerPl-aCncon 08-19-2022 TSH Qn 1.190 m[IU]/L Normal 0.270-4.200 [facility] Comment on above: Order Comment: Speci men Type: BLOOD SPECIMEN Ordering Facility: [facility] Address: [address] [place] [address] Result Comment: If t he patient is , TSH reference range varies by gestational period: First Trimester (weeks 9-12): 0.180-2.990 mIU/L Second Trimester: 0.110-3.980 mIU/L Third Trimester: 0.480-4.710 mIU/L Rafiq Winston et al. A Practical Approach for the Verifications and Determination of Site- and Trimester-Specific Reference Intervals for Thyroid Function tests in . Thyroid, 2019:29:3:412-420. William Bautista, et al. 2017 Guidelines of the [place] [employer] for the Diagnosis and Management of Thyroid Disease during and the . Thyroid, 2017:27:3:315-389. Performed By: #### 3 016-3 #### [facility] CLIA [id number] [address] [place] [address] [place] TYPE + SCREEN PRENATALon ABO O [facility] HIstorical Ab Scr Status Negative [facility] Rh Nom (Bld) Positive [facility] Type and Screen Expiration 08/22/2022 23:59 [facility] ABO O Normal [facility] Comment on above: Order Comment: Speci men Type: BLOOD SPECIMEN Ordering Facility: [facility] Address: [address] [place] [address] Performed By: #### T SPN #### [facility] CLIA [id number] [address] HISTORICAL AB SCR STATUS Negative Normal [facility] Comment on above: Order Comment: Speci men Type: BLOOD SPECIMEN [facility]ing [facility]: [facility] Address: [address] [place] [address] Performed By: #### T SPN #### [facility] CLIA [id number] [address] Rh Nom (Bld) Positive Normal [facility] Comment on above: Order Comment: Speci men Type: BLOOD SPECIMEN Ordering Facility: [facility] Address: [address] [place] [address] Performed By: #### T SPN #### [facility] CLIA [id number] [address] TYPE AND SCREEN EXPIRATION 08/22/2022 23:59 Normal [facility] Comment on above: Order Comment: Speci men Type: BLOOD SPECIMEN Ordering Facility: [facility] Address: [address] [place] [address] Performed By: #### T SPN #### [facility] CLIA [id number] [address] [place] [address] [place] URINE OB DIP B/Oon 2 Glucose Ql (U) Negative Neg mg/dL [facility] Protein.monoclonal (U) [Mass/Vol] Negative Neg mg/dL [facility] CONFIRM BLOOD TYPEon 022 ABO O Normal [facility] Comment on above: Order Comment: Speci men Type: BLOOD SPECIMEN Ordering Facility: [facility] Address: [address] [place] [address] Performed By: #### C ONABO #### [facility] CLIA [id number] [address] [place] Rh Nom (Bld) Positive Normal [facility] Comment on above: Order Comment: Speci men Type: BLOOD SPECIMEN Ordering Facility: [facility] Address: [address] [place] [address] Performed By: #### C ONABO #### [facility] [place] [id number] [address] ED Triage Noteon 08-14-2022 ED Triage Note HNO ID: [id number] Author: Kaushik Justice APRN.CNP Service: Emergency Medicine [...] a week. She was previously seen at [facility] where she states she had an [...] positive send OB triage SIGNATURE: Kaushik Justice APRN.HOSPITAL INTERN Normal [facility] TYPE + SCREEN PRENATALon ABO O Normal [facility] Comment on above: Order Comment: Speci men Type: BLOOD SPECIMEN Ordering Facility: [facility] Address: [address] [place] [address] Performed By: #### T SPN #### [facility] [id number] [address] HISTORICAL AB SCR STATUS Negative Normal [facility] Comment on above: Order Comment: Speci men Type: BLOOD SPECIMEN Ordering Facility: [facility] Address: [place] Performed By: #### T SPN #### [facility] CLIA [id number] [address] Rh Nom (Bld) Positive Normal [facility] Comment on above: Order Comment: Speci men Type: BLOOD SPECIMEN Ordering Facility: [facility] Address: [address] [place] [address] Performed By: #### T SPN #### [facility] CLIA [id number] [address] TYPE AND SCREEN EXPIRATION 08/17/2022 23:59 Normal [facility] Comment on above: Order Comment: Speci men Type: BLOOD SPECIMEN Ordering Facility: [facility] Address: [address] [place] [address] Performed By: #### T SPN #### [facility] CLIA [id number] [address] 08-10-2022 [facility] Telephone (OBGMEM) LUZ OLIVEIRA ([id number]) 2000 F Date Time Provider Department 08/10/22 [...] Status:Closed by NISA MURPHY on 11/11/22 Normal [facility] Absolute lymphocyte counton 08-09-2022 Lymphocytes Auto (Unsp spec) [#/Vol] 1.23 10*3/uL 0.83-4.51 [facility] Work Phone: Basophil percentageon 2021 Basophils/100 WBC (Bld) 0.2 % 0-1 [facility] Work Phone: Bilirubin [Mass/Vol] 0.50 mg/dL 0.20-1.00 [facility] Work Phone: Comment on above: For patients on eltr ombopag therapy, use of Dimension [place] TBIL is not recommended. Chloride [Moles/Vol] 107 mmol/L 98-107 [facility] Work Phone: Eosinophils/100 WBC (Bld) 0.3 % 0-5 [facility] Work Phone: Glucose [Mass/Vol] 122 mg/dL 74-106 [facility] Work Phone: Comment on above: Fasting Glucose resu lt from 100 to 125 mg/dL suggests IMPAIRED HOMEOSTASIS per A.D.A. criteria. Neutrophils (Bld) [#/Vol] 4.2 10*3/uL 2.0-7.7 [facility] Work Phone: Neutrophils/100 WBC (Bld) 71.9 % 47-70 [facility] Work Phone: Potassium [Moles/Vol] 3.5 mmol/L 3.5-5.1 [facility] Work Phone: Protein [Mass/Vol] 7.3 g/dL 6.4-8.2 [facility] Work Phone: Sodium [Moles/Vol] 139 mmol/L 136-145 [facility] Work Phone: WBC (Bld) [#/Vol] 5.9 10*3/uL 4.4-11.0 [facility] Work Phone: Basophil percentage 0 SEEN /hpf 0-5 [facility] Work Phone: Beta hCG serum qualon 2021 Beta HCG ( test) Ql Negative [facility] Work Phone: Comment on above: TEST is *P OSITIVE* Bilirubin Test strip Ql (U)o n 08-09-2022 Bilirubin Ql (U) Negative Negative [facility] Work Phone: Blood erythrocytes count (nu mber/volume)on 08-09-2022 RBC (Bld) [#/Vol] 4.26 10*6/uL 4.2-5.[address] [facility] Work Phone: Blood hemoglobin measurement (mass/volume)on 08-09-2022 Hemoglobin (Bld) [Mass/Vol] 13.4 g/dL 12.0-15.0 [facility] Work Phone: [phone] Blood lymphocytes/100 leukoc yteson 08-09-2022 Lymphocytes/100 WBC (Bld) 21.0 % 19-41 [facility] Work Phone: [phone] Blood monocytes/100 leukocyt eson 08-09-2022 Monocytes/100 WBC (Bld) 6.3 % 0-10 [facility] Work Phone: [phone] Blood platelet mean volumeon 08-09-2022 Platelet mean volume (Bld) [Entitic vol] 10.1 fL 6.2-12.0 [facility] Work Phone: [phone] Determination of erythrocyte mean corpuscular volume (MCV)on 08-09-2022 MCV (RBC) [Entitic vol] 91.8 fL 81-99 [facility] Work Phone: Hematocrit Auto (Bld) [Volum e fraction]on 08-09-2022 Hematocrit (Bld) [Volume fraction] 39.1 % 37-47 [facility] Work Phone: [phone] Ketones Test strip Ql (U)on 08-09-2022 Ketones Ql (U) Negative Negative [facility] Work Phone: [phone] Laboratory - Chemistry and C hemistry - challengeon 08-09-2022 ALP [Catalytic activity/Vol] 56 U/L 45-117 [facility] Work Phone: ALT [Catalytic activity/Vol] 67 U/L 13-56 [facility] Work Phone: [phone] CO2 [Moles/Vol] 25.0 mmol/L 21.0-32.0 [facility] Work Phone: Globulin (S) [Mass/Vol] 3.5 g/dL 2.2-4.2 [facility] Work Phone: [phone] Urea nitrogen/Creatinine [Mass ratio] 9.7 mg/mg 10-20 [facility] Work Phone: [phone] Laboratory - Hematology and Cell countson 08-09-2022 Erythrocyte distribution width (RBC) [Entitic vol] 42.5 fL 35.1-43.9 [facility] Work Phone: [phone] Erythrocyte distribution width (RBC) [Ratio] 12.8 % 11.6-14.6 [facility] Work Phone: [phone] Immature granulocytes/100 WBC (Bld) 0.300 % 0.0-0.9 [facility] Work Phone: [phone] Comment on above: IG% - Immature Granu locytes (promyelocytes, myelocytes and metamyelocytes) > 1% indicates that a LEFT SHIFT is Present. MCH (RBC) [Entitic mass] 31.5 pg 27.0-32.0 [facility] Work Phone: [phone] Nucleated RBC/100 WBC (Bld) [Ratio] 0 % 0-5 [facility] Work Phone: [phone] MCHC Auto (RBC) [Mass/Vol]on 08-09-2022 MCHC (RBC) [Mass/Vol] 34.3 g/dL 32-36 [facility] Work Phone: [phone] Mucus LM Ql (Urine sed)on Mucus Ql (Urine sed) 0 SEEN /hpf [facility] Work Phone: [phone] Nitrite Test strip Ql (U)on 08-09-2022 Nitrite Ql (U) Negative Negative [facility] Work Phone: [phone] Panel Informationon 08-09 Estimated Creatinine Clearance Calc 81.20 ml/min [facility] Work Phone: [phone] Estimated GFR (MDRD) Amer 111 mL/min >60 [facility] Work Phone: [phone] Comment on above: GFR Calc Estimated GFR (MDRD) Non-Af Amer 91 mL/min >60 [facility] Work Phone: Comment on above: Non- GFR Calc Platelets bldon 08-09-2022 Platelets (Bld) [#/Vol] 224 10*3/uL 150-450 [facility] Work Phone: Protein Test strip Ql (U)on 08-09-2022 Protein Ql (U) Negative Negative [facility] Work Phone: Serum or plasma albumin sabino urement (mass/volume)on 08-09-2022 Albumin [Mass/Vol] 3.8 g/dL 3.2-5.0 [facility] Work Phone: Serum or plasma albumin/glob ulin mass ratioon 08-09-2022 Albumin/Globulin [Mass ratio] 1.1 {ratio} 0.9-2.4 [facility] Work Phone: Serum or plasma calcium sabino urement (mass/volume)on 08-09-2022 Calcium [Mass/Vol] 9.2 mg/dL 8.5-10.1 [facility] Work Phone: Serum or plasma choriogonado tropin detectionon 08-09-2022 HCG ( [place]) [place] [address] mIU/mL <4 [facility] Work Phone: Comment on above: hCG levels with Gest ational AgeGestational Age hCG mIU/mL (IU/L)0.2 - 1 week 5 - 501-2 weeks 50 - 5002-3 weeks 100 - 65377-2 weeks 500 - 605111-7 weeks 1000 - 702708-2 weeks 04661 - 100,0006-8 weeks 44305 - 200,0002-3 months 55584 - 100,000 Serum or plasma creatinine m easurement (mass/volume)on 08-09-2022 Creatinine [Mass/Vol] 0.82 mg/dL 0.55-1.02 [facility] Work Phone: Comment on above: The validity of the calculated GFR & GFRAA in patients over 70 years has not been determined. Clinical correlation is essential. Serum or plasma urea nitroge n measurement (mass/volume)on 08-09-2022 Urea nitrogen [Mass/Vol] 8 mg/dL 7-18 [facility] Work Phone: Squamous epithelial cells de tection in urine sediment by light microscopyon 08-09-2022 Epithelial cells.squamous LM Ql (Urine sed) 0-5 SEEN /hpf 5-10 [facility] Work Phone: Thin prep Papanicolaou smear with manual screeningon 08-09-2022 Thin prep Papanicolaou smear with manual screening 38 U/L 15-37 [facility] Work Phone: [phone] Thin prep Papanicolaou smear with manual screening 7 5-15 [facility] Work Phone: Urine blood detectionon 07-13 RBC Ql (U) 25 /ul Negative [facility] Work Phone: RBC Ql (U) 0 SEEN /hpf 0-5 [facility] Work Phone: Urine clarityon 08-09-2022 Clarity (U) Clear Clear [facility] Work Phone: Urine color determinationon 08-09-2022 Color (U) Yellow Yellow [facility] Work Phone: Urine glucose detectionon Glucose Ql (U) Normal mg/dl Normal [facility] Work Phone: Urine leukocyte esterase det ection by dipstickon 08-09-2022 Leukocyte esterase Test strip Ql (U) 25 /ul Negative [facility] Work Phone: Urine pHon 08-09-2022 pH (U) 7.0 [pH] 5.0 - 8.0 [facility] Work Phone: Urine sediment bacteria coun t by microscopy (number/high power field)on 08-09-2022 Bacteria LM.HPF (Urine sed) [#/Area] 0 /[HPF] None Seen [facility] Work Phone: Urine specific gravity measu rementon 08-09-2022 Specific gravity (U) [Rel density] 1.010 1.002-1.030 [facility] Work Phone: Urobilinogen Auto test strip Ql (U)on 08-09-2022 Urobilinogen Ql (U) Normal mg/dl Normal [facility] Work Phone: CBCon 08-04-2022 Hematocrit (Bld) [Volume [...] vol] 9.9 fL 7.4 - 12.4 fL [facility] Comment on above: MPV is a calculated measurement using platelet volume ratio. Platelets (Bld) [#/Vol] 217 10*3/uL 140 - 440 10*3/uL [facility] RBC (Bld) [#/Vol] 4.27 10*6/uL 3.80 - 5.2 0 10*6/uL [facility] WBC (Bld) [#/Vol] 5.4 10*3/uL 3.6 - 10.7 10*3/uL [facility] Test Performed by [facility], [address] [place] [address]. [address] LAB [facility] HCG, QUANTITATIVE, on 08-04-2022 hCG Quant 3840 m[IU]/mL [facility] Comment on above: Females < 5 Values [...] or gestational trophoblastic disease. Test Performed by [facility], [address] [place] [address] LAB [facility] Hemogram 08-04-2022 Erythrocyte distribution width (RBC) [Ratio] 12.8 % Normal 11.5-14.5 [facility] Comment on above: Performed By: #### H IZAG QWNT5 #### [address] [place] [address] Hematocrit (Bld) [Volume fraction] 39.2 % Normal 35.0-47.0 [facility] Comment on above: Performed By: #### H LIONEL QWNT5 #### [address] [place] [address] Hemoglobin (Bld) [Mass/Vol] 13.4 g/dL Normal 11.7-16.0 [facility] Comment on above: Performed By: #### H EMOG QWNT5 #### [address] [place] [address] MCH (RBC) [Entitic mass] 31.4 pg Normal 26.0-34.0 [facility] Comment on above: Performed By: #### H EMOG, QWNT5 #### [address] [place] [address] MCHC 34.2 % Normal 32.0-36.0 [facility] Comment on above: Performed By: #### H EMOG, QWNT5 #### [address] [place] [address] MCV (RBC) [Entitic vol] 91.8 fL Normal 79.0-98.0 [facility] Comment on above: Performed By: #### H EMOSamuel, QWNT5 #### [facility] [address] [place] [address] Platelet mean volume (Bld) [Entitic vol] 9.9 fL Normal 7.4-12.4 [facility] Comment on above: Result Comment: MPV is a calculated measurement using platelet volume ratio. Performed By: #### H EMOG, QWNT5 #### [facility] [address] [place] [address] Platelets (Bld) [#/Vol] 217 10*3/uL Normal 140-440 [facility] Comment on above: Performed By: #### H EMOG, QWNT5 #### [facility] [address] [place] [address] RBC (Bld) [#/Vol] 4.27 10*6/uL Normal 3.80-5.20 [facility] Comment on above: Performed By: #### H EMOG, QWNT5 #### [facility] [address] [place] [address] WBC (Bld) [#/Vol] 5.4 10*3/uL Normal 3.6-10.7 [facility] Comment on above: Performed By: #### H EMOG, QWNT5 #### [facility] [address] [place] [address] GELon 08-04-2022 GEL ABO Group: O Rh, Gel: POS Antibody Screen Gel: NEG Normal [facility] Comment on above: Performed By: #### P NGL #### [facility] TYPE AND SCREENon 1 ABO Grouping O [facility] Work Phone: Rh Type Positive [facility] Work Phone: Test Performed by [facility], [address] , [place], [place] [id number] [place] [address] LAB [facility] Work Phone: US OB TRANSVAGINALon 2 022 Patient Name: LUZ OLIVEIRA Ultrasound ACCESSION EXAM DATE/TIME PROCEDURE ORDERING PROVIDER [id number] 08/04/2022 12:05 EDT [place] [id number] HARRISON Transvaginal CPT code 91248 Reason For Exam (US Transvaginal) 7 weeks [...] ALFRED Transcribed Date and Time: 08/04/2022 12:31 [facility] Silas Pickens DO - 08/04/2022 Patient Name: LUZ OLIVEIRA Ultrasound ACCESSION EXAM DATE/TIME PROCEDURE ORDERING PROVIDER [id number] 08/04/2022 12:05 EDT US MELANIA OCAMPO Transvaginal CPT code 66421 Reason For Exam (US Transvaginal) 7 weeks [...] TRANSVAGINALOrdered By : Silas Pickens on 08-04-2022 [facility] Work Phone: US Transvaginalon 08-04-2022 US Transvaginal Patient Name: LUZ OLIVEIRA Ultrasound ACCESSION EXAM DATE/TIME PROCEDURE ORDERING PROVIDER [id number] 08/04/2022 12:05 EDT [place] [id number] -AUSTYNIRAI, ANIS Transvaginal CPT code 42498 Reason For Exam (US Transvaginal) 7 weeks [...] Transcribed Date and Time: 08/04/2022 12:31 Normal [facility] hCG Quantitativeon hCG Quantitative 3840 m[IU]/mL Normal [facility] Comment on above: Result Comment: Fema [...] gestational trophoblastic disease. Performed By: #### H [facility], QWNT5 #### [facility] [address] [place] [address] CNCOon 07-20-2022 CNCO Letter Text Normal [facility] Eliecer 07-09-2022 [facility] Telephone (AGYoopay) LUZ OLIVEIRA ([id number]) 2000 F Date Time Provider Department 07/09/22 LEDY VAUGHN During your visit today, we recorded the following information about you: Verónica Alegre 07/09/2022 12:29 PM Signed No Show Documentation uLz Oliveira no showed for an appointment on [...] (FLONASE) 50 mcg/actuation nasal spray Use 1 Mcintosh in each nostril once daily. 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 Absolute lymphocyte counton 06-29-2022 Lymphocytes Auto (Unsp spec) [#/Vol] 1.79 10*3/uL 0.83-4.51 [facility] Work Phone: Basophil percentageon 2021 Basophil percentage 0-5 SEEN /hpf 0-5 [facility] Work Phone: Basophils/100 WBC (Bld) 0.1 % 0-1 [facility] Work Phone: Chloride [Moles/Vol] 106 mmol/L 98-107 [facility] Work Phone: Eosinophils/100 WBC (Bld) 0.2 % 0-5 [facility] Work Phone: Glucose [Mass/Vol] 98 mg/dL 74-106 [facility] Work Phone: Neutrophils (Bld) [#/Vol] 6.1 10*3/uL 2.0-7.7 [facility] Work Phone: Neutrophils/100 WBC (Bld) 72.2 % 47-70 [facility] Work Phone: Potassium [Moles/Vol] 3.9 mmol/L 3.5-5.1 [facility] Work Phone: Sodium [Moles/Vol] 142 mmol/L 136-145 [facility] Work Phone: WBC (Bld) [#/Vol] 8.5 10*3/uL 4.4-11.0 [facility] Work Phone: Beta hCG serum qualon 2021 Beta HCG ( test) Ql Negative [facility] Work Phone: Bilirubin Test strip Ql (U)o n 06-29-2022 Bilirubin Ql (U) Negative Negative [facility] Work Phone: Blood erythrocytes count (nu mber/volume)on 06-29-2022 RBC (Bld) [#/Vol] 4.44 10*6/uL 4.2-5.[address] [facility] Work Phone: Blood hemoglobin measurement (mass/volume)on 06-29-2022 Hemoglobin (Bld) [Mass/Vol] 13.7 g/dL 12.0-15.0 [facility] Work Phone: Blood lymphocytes/100 leukoc yteson 06-29-2022 Lymphocytes/100 WBC (Bld) 21.2 % 19-41 [facility] Work Phone: Blood monocytes/100 leukocyt eson 06-29-2022 Monocytes/100 WBC (Bld) 5.8 % 0-10 [facility] Work Phone: [phone] Blood platelet mean volumeon 06-29-2022 Platelet mean volume (Bld) [Entitic vol] 9.9 fL 6.2-12.0 [facility] Work Phone: Determination of erythrocyte mean corpuscular volume (MCV)on 06-29-2022 MCV (RBC) [Entitic vol] 90.5 fL 81-99 [facility] Work Phone: Hematocrit Auto (Bld) [Volum e fraction]on 06-29-2022 Hematocrit (Bld) [Volume fraction] 40.2 % 37-47 [facility] Work Phone: [phone] Ketones Test strip Ql (U)on 06-29-2022 Ketones Ql (U) Negative Negative [facility] Work Phone: Laboratory - Chemistry and C hemistry - challengeon 06-29-2022 CO2 [Moles/Vol] 28.0 mmol/L 21.0-32.0 [facility] Work Phone: Urea nitrogen/Creatinine [Mass ratio] 23.1 mg/mg 10-20 [facility] Work Phone: [phone] Laboratory - Hematology and Cell countson 06-29-2022 Erythrocyte distribution width (RBC) [Entitic vol] 41.0 fL 35.1-43.9 [facility] Work Phone: [phone] Erythrocyte distribution width (RBC) [Ratio] 12.7 % 11.6-14.6 [facility] Work Phone: [phone] Immature granulocytes/100 WBC (Bld) 0.500 % 0.0-0.9 [facility] Work Phone: [phone] Comment on above: IG% - Immature Granu locytes (promyelocytes, myelocytes and metamyelocytes) > 1% indicates that a LEFT SHIFT is Present. MCH (RBC) [Entitic mass] 30.9 pg 27.0-32.0 [facility] Work Phone: Nucleated RBC/100 WBC (Bld) [Ratio] 0 % 0-5 [facility] Work Phone: MCHC Auto (RBC) [Mass/Vol]on 06-29-2022 MCHC (RBC) [Mass/Vol] 34.1 g/dL 32-36 [facility] Work Phone: Mucus LM Ql (Urine sed)on Mucus Ql (Urine sed) 0 SEEN /hpf [facility] Work Phone: Nitrite Test strip Ql (U)on 06-29-2022 Nitrite Ql (U) Negative Negative [facility] Work Phone: No Panel Informationon 06-29 Estimated Creatinine Clearance Calc 89.98 ml/min [facility] Work Phone: Estimated GFR (MDRD) Amer 126 mL/min >60 [facility] Work Phone: Comment on above: GFR Calc Estimated GFR (MDRD) Non-Af Amer 104 mL/min >60 [facility] Work Phone: Comment on above: Non- GFR Calc Platelets bldon 06-29-2022 Platelets (Bld) [#/Vol] 287 10*3/uL 150-450 [facility] Work Phone: Protein Test strip Ql (U)on 06-29-2022 Protein Ql (U) 30 mg/dl Negative [facility] Work Phone: [phone] Serum or plasma calcium sabino urement (mass/volume)on 06-29-2022 Calcium [Mass/Vol] 9.7 mg/dL 8.5-10.1 [facility] Work Phone: [phone] Serum or plasma creatinine m easurement (mass/volume)on 06-29-2022 Creatinine [Mass/Vol] 0.74 mg/dL 0.55-1.02 [facility] Work Phone: Comment on above: The validity of the calculated GFR & GFRAA in patients over 70 years has not been determined. Clinical correlation is essential. Serum or plasma urea nitroge n measurement (mass/volume)on 06-29-2022 Urea nitrogen [Mass/Vol] 17 mg/dL 7-18 [facility] Work Phone: Squamous epithelial cells de tection in urine sediment by light microscopyon 06-29-2022 Epithelial cells.squamous LM Ql (Urine sed) 0-5 SEEN /hpf 5-10 [facility] Work Phone: Thin prep Papanicolaou smear with manual screeningon 06-29-2022 Thin prep Papanicolaou smear with manual screening 8 5-15 [facility] Work Phone: Urine blood detectionon 06-11 RBC Ql (U) 25 /ul Negative [facility] Work Phone: RBC Ql (U) 0-5 SEEN /hpf 0-5 [facility] Work Phone: Urine clarityon 06-29-2022 Clarity (U) Clear Clear [facility] Work Phone: Urine color determinationon 06-29-2022 Color (U) Yellow Yellow [facility] Work Phone: Urine glucose detectionon Glucose Ql (U) Normal mg/dl Normal [facility] Work Phone: Urine leukocyte esterase det ection by dipstickon 06-29-2022 Leukocyte esterase Test strip Ql (U) 25 /ul Negative [facility] Work Phone: Urine pHon 06-29-2022 pH (U) 6.5 [pH] 5.0 - 8.0 [facility] Work Phone: Urine sediment bacteria coun t by microscopy (number/high power field)on 06-29-2022 Bacteria LM.HPF (Urine sed) [#/Area] 0 /[HPF] None Seen [facility] Work Phone: Urine specific gravity measu rementon 06-29-2022 Specific gravity (U) [Rel density] 1.010 1.002-1.030 [facility] Work Phone: Urobilinogen Auto test strip Ql (U)on 06-29-2022 Urobilinogen Ql (U) Normal mg/dl Normal [facility] [place] Work Phone: CBC W Auto Differential pane l (Bld)on 05-31-2022 Basophils (Bld) [#/Vol] 10*3/uL Normal <0.11 [facility] Comment on above: Order Comment: Speci men Type: BLOOD SPECIMENOrdering Facility: [facility] Address: [address] [place] [address] Performed By: #### 5 7021-8 ####[facility] LABORATORYCLIA [id number] [address] [place] Basophils/100 WBC (Bld) 0.0 % Normal [facility] Comment on above: Order Comment: Speci men Type: BLOOD SPECIMENOrdering Facility: [facility] Address: [address] [place] [address] Performed By: #### 5 7021-8 ####[facility]ORATORYCLIA [id number] [address] [place] Differential cell count method Nom (Bld) Auto Normal [facility] Comment on above: Order Comment: Speci men Type: BLOOD SPECIMENOrdering Facility: [facility] Address: [address] [place] [address] Performed By: #### 5 7021-8 ####[facility] LABORATORYCLIA [id number] [place] [address] [place] Eosinophils (Bld) [#/Vol] 10*3/uL Normal <0.46 [facility] Comment on above: Order Comment: Speci men Type: BLOOD SPECIMENOrdering Facility: [facility] Address: [address] [place] [address] Performed By: #### 5 7021-8 ####[facility]ORATORYCLIA [id number] [place] [address] [place] Eosinophils/100 WBC (Bld) 0.2 % Normal [facility] Comment on above: Order Comment: Speci men Type: BLOOD SPECIMENOrdering Facility: [facility] Address: [address] [place] [address] Performed By: #### 5 7021-8 ####[facility]ORATORYCLIA [id number] [address] Erythrocyte distribution width (RBC) [Ratio] 12.5 % Normal 11.5-15.0 [facility] Comment on above: Order Comment: Speci men Type: BLOOD SPECIMENOrdering Facility: [facility] Address: [address] [place] [address] Performed By: #### 5 7021-8 ####[facility]ORATORYCLIA [id number] [address] Hematocrit (Bld) [Volume fraction] 38.8 % Normal 36.0-46.0 [facility] Comment on above: Order Comment: Speci men Type: BLOOD SPECIMENOrdering Facility: [facility] Address: [address] [place] [address] Performed By: #### 5 7021-8 ####[facility]ATORYCLIA [id number] [address] Hemoglobin (Bld) [Mass/Vol] 13.4 g/dL Normal 11.5-15.5 [facility] Comment on above: Order Comment: Speci men Type: BLOOD SPECIMENOrdering Facility: [facility] Address: [address] [place] [address] Performed By: #### 5 7021-8 ####[facility]ATORYCLIA [id number] [address] IMMATURE GRAN % 0.2 % Normal [facility] Comment on above: Order Comment: Speci men Type: BLOOD SPECIMENOrdering Facility: [facility] Address: [address] [place] [address] Performed By: #### 5 7021-8 ####[facility]ORATORYCLIA [id number] [place] [address] IMMATURE GRAN ABS <0.03 Normal <0.10 [facility] Comment on above: Order Comment: Speci men Type: BLOOD SPECIMENOrdering Facility: [facility] Address: [address] [place] [address] Performed By: #### 5 7021-8 ####[facility]ORATORYCLIA [id number] [address] OF [facility] Lymphocytes (Bld) [#/Vol] 1.08 10*3/uL Normal 1.00-4.00 [facility] Comment on above: Order Comment: Speci men Type: BLOOD SPECIMENOrdering Facility: [facility] Address: [address] [place] [address] Performed By: #### 5 7021-8 ####[facility]ATORYCLIA [id number] [address] Lymphocytes/100 WBC (Bld) 26.3 % Normal [facility] Comment on above: Order Comment: Speci men Type: BLOOD SPECIMENOrdering Facility: [facility] Address: [address] [place] [address] Performed By: #### 5 7021-8 ####[facility]ATORYCLIA [id number] [address] MCH (RBC) [Entitic mass] 30.2 pg Normal 26.0-34.0 [facility] Comment on above: Order Comment: Speci men Type: BLOOD SPECIMENOrdering Facility: [facility] Address: [address] [place] [address] Performed By: #### 5 7021-8 ####[facility]ATORYCLIA [id number] [address] MCHC (RBC) [Mass/Vol] 34.5 g/dL Normal 30.5-36.0 [facility] Comment on above: Order Comment: Speci men Type: BLOOD SPECIMENOrdering Facility: [facility] Address: [address] [place] [address] Performed By: #### 5 7021-8 ####[facility]ATORYCLIA [id number] [address] [place] MCV (RBC) [Entitic vol] 87.6 fL Normal 80.0-100.0 [facility] Comment on above: Order Comment: Speci men Type: BLOOD SPECIMENOrdering Facility: [facility] Address: [address] [place] [address] Performed By: #### 5 7021-8 ####[facility]ATORYCLIA [id number] [address] [place] Monocytes (Bld) [#/Vol] 0.34 10*3/uL Normal <0.87 [facility] Comment on above: Order Comment: Speci men Type: BLOOD SPECIMENOrdering Facility: [facility] Address: [address] [place] [address] Performed By: #### 5 7021-8 ####[facility]ATORYCLIA [id number] [address] Monocytes/100 WBC (Bld) 8.3 % Normal [facility] Comment on above: Order Comment: Speci men Type: BLOOD SPECIMENOrdering Facility: [facility] Address: [address] [place] [address] Performed By: #### 5 7021-8 ####[facility]ATORYCLIA [id number] [address] [place] Neutrophils (Bld) [#/Vol] 2.66 10*3/uL Normal 1.45-7.50 [facility] Comment on above: Order Comment: Speci men Type: BLOOD SPECIMENOrdering Facility: [facility] Address: [address] [place] [address] Performed By: #### 5 7021-8 ####[facility]ATORYCLIA [id number] [address] [place] Neutrophils/100 WBC (Bld) 65.0 % Normal [facility] Comment on above: Order Comment: Speci men Type: BLOOD SPECIMENOrdering Facility: [facility] Address: [address] Performed By: #### 5 7021-8 ####[facility]ORATORYCLIA [id number] [address] Nucleated RBC (Bld) [#/Vol] 10*3/uL Normal <0.01 [facility] Comment on above: Order Comment: Speci men Type: BLOOD SPECIMENOrdering Facility: [facility] Address: [address] Performed By: #### 5 7021-8 ####[facility]ORATORYCLIA [id number] [address] Nucleated RBC/100 WBC (Bld) [Ratio] 0.0 /100 WBC Normal [facility] Comment on above: Order Comment: Speci men Type: BLOOD SPECIMENOrdering Facility: [facility] Address: [address] [place] [address] Performed By: #### 5 7021-8 ####[facility]ORATORYCLIA [id number] [address] STATES [facility] Platelet mean volume (Bld) [Entitic vol] 9.7 fL Normal 9.0-12.7 [facility] Comment on above: Order Comment: Speci men Type: BLOOD SPECIMENOrdering Facility: [facility] Address: [address] Performed By: #### 5 7021-8 ####[facility]ATORYCLIA [id number] [address] Platelets (Bld) [#/Vol] 178 10*3/uL Normal 150-400 [facility] Comment on above: Order Comment: Speci men Type: BLOOD SPECIMENOrdering Facility: [facility] Address: [address] [place] [address] Performed By: #### 5 7021-8 ####[facility]ORATORYCLIA [id number] [address] [place] RBC (Bld) [#/Vol] 4.43 10*6/uL Normal 3.90-5.20 [facility] Comment on above: Order Comment: Speci men Type: BLOOD SPECIMENOrdering Facility: [facility] Address: [address] [place] [address] Performed By: #### 5 7021-8 ####[facility]ATORYCLIA [id number] [address] OF [facility] WBC (Bld) [#/Vol] 4.10 10*3/uL Normal 3.70-11.00 [facility] Comment on above: Order Comment: Speci men Type: BLOOD SPECIMENOrdering Facility: [facility] Address: [address] [place] [address] Performed By: #### 5 7021-8 ####[facility]ORATORYCLIA [id number] [address] Comprehensive metabolic 2000 panelon 05-31-2022 Albumin [Mass/Vol] 4.5 g/dL Normal 3.9-4.9 [facility] Comment on above: Order Comment: Speci men Type: BLOOD SPECIMENOrdering Facility: [facility] Address: [address] [place] [address] Performed By: #### 3 040-3, 97347-9, 57894-7 ####[facility]ORATORYCLIA [id number] [address] STATES OF [facility] ALP [Catalytic activity/Vol] 60 U/L Normal 34-123 [facility] Comment on above: Order Comment: Speci men Type: BLOOD SPECIMENOrdering Facility: [facility] Address: [address] [place] [address] Performed By: #### 3 040-3, 39081-3, 81502-9 ####[facility]ATORYCLIA [id number] [address] OF [facility] ALT With P-5'-P [Catalytic activity/Vol] 55 U/L High 7-38 [facility] Comment on above: Order Comment: Speci men Type: BLOOD SPECIMENOrdering Facility: [facility] Address: [address] [place] [address] Performed By: #### 3 040-3, , ####[facility]ATORYCLIA [id number] [address] STATES OF [facility] Anion gap [Moles/Vol] 12 mmol/L Normal 9-18 [facility] Comment on above: Order Comment: Speci men Type: BLOOD SPECIMENOrdering Facility: [facility] Address: [address] [place] [address] Performed By: #### 3 040-3, , ####[facility]ATORYCLIA [id number] [place] [address] [place] AST With P-5'-P [Catalytic activity/Vol] 57 U/L High 13-35 [facility] Comment on above: Order Comment: Speci men Type: BLOOD SPECIMENOrdering Facility: [facility] Address: [address] [place] [address] Performed By: #### 3 040-3, , ####[facility]ORATORYCLIA [id number] [place] [address] [place] Bilirubin [Mass/Vol] 0.5 mg/dL Normal 0.2-1.3 [facility] Comment on above: Order Comment: Speci men Type: BLOOD SPECIMENOrdering Facility: [facility] Address: [address] [place] [address] Performed By: #### 3 040-3, 05050-4, ####[facility]ATORYCLIA [id number] [address] [place] Calcium [Mass/Vol] 8.9 mg/dL Normal 8.5-10.2 [facility] Comment on above: Order Comment: Speci men Type: BLOOD SPECIMENOrdering Facility: [facility] Address: [address] [place] [address] Performed By: #### 3 040-3, 00992-9, ####[facility]ORATORYCLIA [id number] [place] [address] [place] Chloride [Moles/Vol] 102 mmol/L Normal 97-105 [facility] Comment on above: Order Comment: Speci men Type: BLOOD SPECIMENOrdering Facility: [facility] Address: [address] [place] [address] Performed By: #### 3 040-3, 67226-4, ####[facility]ORATORYCLIA [id number] [place] [address] [place] CO2 [Moles/Vol] 25 mmol/L Normal 22-30 [facility] Comment on above: Order Comment: Speci men Type: BLOOD SPECIMENOrdering Facility: [facility] Address: [address] [place] [address] Performed By: #### 3 040-3, , ####[facility]ATORYCLIA [id number] [address] OF [facility] Creatinine [Mass/Vol] 0.74 mg/dL Normal 0.58-0.96 [facility] Comment on above: Order Comment: Speci men Type: BLOOD SPECIMENOrdering Facility: [facility] Address: [address] [place] [address] Performed By: #### 3 040-3, , ####[facility]ATORYCLIA [id number] [address] ESTIMATED GLOMERULAR FILTRATION RATE 117 mL/min/1.73m??? Normal >=60 [facility] Comment on above: Order Comment: Speci men Type: BLOOD SPECIMENOrdering Facility: [facility] Address: [address] [place] [address] Result Comment: Tierra mated Glomerular Filtration Rate [...] GFR. Performed By: #### 3 040-3, , ####[facility]ATORYCLIA [id number] [place] [address] [place] Glucose [Mass/Vol] 91 mg/dL Normal 74-99 [facility] Comment on above: Order Comment: Eloise lopez Type: BLOOD SPECIMENOrdering Facility: [facility] Address: [address] [place] [id number] Result Comment: The [place] [employer] Association (ADA) provides guidance for cutoff [...] Standards of Medical Care in Diabetes 2016, [place] [employer]. Diabetes Care. 2016.39(Suppl 1). Performed By: #### 3 040-3, , ####[facility]ORATORYCLIA [id number] [place] [id number] [place] Potassium [Moles/Vol] 3.6 mmol/L Low 3.7-5.1 [facility] Comment on above: Order Comment: Eloise lopez Type: BLOOD SPECIMENOrdering Facility: [facility] Address: [address] [place] [address] Performed By: #### 3 040-3, , ####[facility]ATORYCLIA [id number] [place] [address] [place] Protein [Mass/Vol] 6.7 g/dL Normal 6.3-8.0 [facility] Comment on above: Order Comment: Speci men Type: BLOOD SPECIMENOrdering Facility: [facility] Address: [address] [place] [address] Performed By: #### 3 040-3, , ####[facility]ATORYCLIA [id number] [address] OF [facility] Sodium [Moles/Vol] 139 mmol/L Normal 136-144 [facility] Comment on above: Order Comment: Speci men Type: BLOOD SPECIMENOrdering Facility: [facility] Address: [address] [place] [address] Performed By: #### 3 040-3, 72157-7, ####[facility]ATORYCLIA [id number] [address] OF [place] Urea nitrogen [Mass/Vol] 7 mg/dL Normal 7-21 [facility] Comment on above: Order Comment: Speci men Type: BLOOD SPECIMENOrdering Facility: [facility] Address: [address] [place] [address] Performed By: #### 3 040-3, 79242-0, ####[facility]ATORYCLIA [id number] [address] ED NOTEon 05-31-2022 ED NOTE HNO ID: [id number] Author: Agueda Meng RN Service: Emergency Medicine Author Type: Registered Nurse Type: ED Notes Filed: 05/31/2022 2:42 PM Note Text: Pt alert and oriented x 4, speaking in full sentences with unlabored breathing. Pt verbalizes understanding of discharge paperwork. Pt ambulated from department without difficulty. Normal [facility] ED NOTE HNO ID: [id number] Author: Agueda Meng RN Service: Emergency Medicine [...] bedside at this time. Normal [facility] ED NOTE HNO ID: [id number] Author: Agueda Meng RN Service: Emergency Medicine Author Type: Registered Nurse Type: ED Notes Filed: 05/31/2022 12:14 PM Note Text: POC BG 80 Normal [facility] ED NOTE HNO ID: [id number] Author: Agueda Meng RN Service: Emergency Medicine Author Type: Registered Nurse Type: ED Notes Filed: 05/31/2022 11:36 AM Note Text: Pt c/o weakness along with generalized illness symptoms. Pt placed on the bedside nuclear monitoring technician at this time. Normal [facility] ED NOTE HNO ID: [id number] Author: Danuta Staley RN Service: ? Author Type: Registered Nurse Type: ED Notes Filed: 05/31/2022 11:04 AM Note Text: Bed: 46-ED Expected date: Expected time: Means of arrival: Comments: triage Normal [facility] ED PROV NOTEon 05-31-2022 ED PROV NOTE HNO ID: [id number] Author: Hiwot Hudson MD Service: Emergency Medicine [...] Hudson MD 05/31/22 1548 Normal [facility] ED PROV NOTE HNO ID: [id number] Author: Hiwot Hudson MD Service: Emergency Medicine [...] Diagnosis Date Cognitive disorder IEP per the [facility] Kidney stone Migraine [...] (more content not included)... Normal [facility] EKGon 05-31-2022 Electrocardiogram Ventricular Rate : 7 1 BPM Atrial Rate : 71 BPM P-R Interval : 118 ms QRS Duration : 84 ms Q-T Interval : 448 ms QTC Calculation(Bazett) : 486 ms Calculated P Oakwood : 23 degrees Calculated R [place] : 58 degrees Calculated T [place]wood : 27 degrees NORMAL SINUS RHYTHM NONSPECIFIC T WAVE ABNORMALITY PROLONGED QT ABNORMAL ECG NO PREVIOUS ECGS AVAILABLE Confirmed by KAUSHIK GUADALUPE MD ([id number]) on 06/04/2022 3:38:07 AM NAME : LUZ OLIVEIRA PID : [id number] : 2000 Gender : Female Race : ORD : Procedure Date : May 31 2022 13:06:20 Edit Date : Jun 04 2022 03:38:08 Diagnosis: NORMAL SINUS RHYTHM NONSPECIFIC T WAVE ABNORMALITY PROLONGED QT ABNORMAL ECG NO PREVIOUS ECGS AVAILABLE Confirmed by KAUSHIK GUADALUPE MD ([id number]) on 06/04/2022 3:38:07 AM Test Reason : Location : 4 : [place] Overread By : KAUSHIK GUADALUPE MD Edited By : KAUSHIK GUADALUPE MD Referred By : , Acquired by : FRIEDKIRTI Normal [facility] HCG Preg Ur Qlon 05-31-2022 HCG ( test) Ql (U) Negative Normal Negative [facility] Comment on above: Order Comment: Speci men Type: URINE SPECIMENOrdering Facility: [facility] Address: [address] [place], [place] [address] Result Comment: This test is intended to aid in the early detection of . Very dilute urine samples, as indicated by a low specific gravity, may not contain industrial sales representative levels of hCG. This test detects [...] for . Performed By: #### 2 106-3 ####[facility]ORATORYCLIA [id number] [place] [address] [place] Lipase SerPl-cCncon 05-31-20 Lipase [Catalytic activity/Vol] 17 U/L Normal 16-61 [facility] Comment on above: Order Comment: Speci men Type: BLOOD SPECIMENOrdering Facility: [facility] Address: [address] [place] [address] Performed By: #### 3 040-3, 53802-2, 70469-6 ####[facility]ORATORYCLIA [id number] [place] [address] [place] Magnesium SerPl-mCncon 05-31 Magnesium [Mass/Vol] 1.8 mg/dL Normal 1.7-2.3 [facility] Comment on above: Order Comment: Speci men Type: BLOOD SPECIMENOrdering Facility: [facility] Address: [address] [place] [address] Performed By: #### 3 040-3, 43002-3, 50223-4 ####[facility]ORATORYCLIA [id number] [place] [address] [place] ROUTINE FLU A/B + RSVon 08- FLUAV RNA CHICHO+probe Ql (Unsp spec) Negative Normal Negative for Influenza A by RT-PCR [facility] Comment on above: Order Comment: Speci men Type: SWAB OF INTERNAL NOSEOrdering Facility: [facility] Address: [address] [place] [address] Performed By: #### R TFRSV, 81709-0 ####[facility] LABCLIA [id number] [address] [place] FLUBV RNA CHICHO+probe Ql (Unsp spec) Negative Normal Negative for Influenza B by RT-PCR [facility] Comment on above: Order Comment: Speci men Type: SWAB OF INTERNAL NOSEOrdering Facility: [facility] Address: [address] [place] [address] Performed By: #### R TFRSV, 83127-9 ####[facility] LABCLIA [id number] [place] [address] [place] RSV A RNA CHICHO+probe Ql (Unsp spec) Negative Normal Negative for Respiratory Syncytial Virus (RSV) by PCR [facility] Comment on above: Order Comment: Speci men Type: SWAB OF INTERNAL NOSEOrdering Facility: [facility] Address: [address] [place] [address] Performed By: #### R TFRSV, 81629-0 ####[facility] LABCLIA [id number] [place] [address] [place] SARS-CoV-2 RNA Resp Ql CHICHO+p robeon 05-31-2022 SARS-CoV-2 (COVID-19) RNA CHICHO+probe Ql (Resp) SARS-CoV-2 (Agent of COVID-19) Detected by RT-PCR or equivalent method. Abnormal Not Detected [facility] Comment on above: Order Comment: Speci men Type: SWAB OF INTERNAL NOSEOrdering Facility: [facility] Address: [address] [place] [address] Result Comment: This test was developed and its performance characteristics determined by [facility]. This test has been authorized by FDA under an Emergency Use Authorization (EUA). This test has been validated in accordance with the FDA's Guidance Document Policy for Diagnostics Testing in Laboratories Certified to Perform High Complexity Testing under CLIA prior to Emergency use Authorization for Coronavirus Disease 2019 during the Public Health Emergency issued on December 09, 2019. Test performed by [facility], [facility] [place], [address] [place] [address]. Performed By: #### R [facility], [address]-2 ####[facility] LABCLIA [id number] [address] [place] Urinalysis complete panel (U )on 05-31-2022 Bilirubin Ql (U) Negative Normal Negative [facility] Comment on above: Order Comment: Speci men Type: URINE SPECIMENOrdering Facility: [facility] Address: [address] [place] [address] Performed By: #### 2 4356-8 ####[facility]ORATORYCLIA [id number] [address] [place] Clarity (Unsp spec) Clear Normal Clear [facility] Comment on above: Order Comment: Speci men Type: URINE SPECIMENOrdering Facility: [facility] Address: [address] [place] [address] Performed By: #### 2 4356-8 ####[facility]ORATORYCLIA [id number] [address] [place] Color (U) Colorless Normal yellow [facility] Comment on above: Order Comment: Speci men Type: URINE SPECIMENOrdering Facility: [facility] Address: [address] [place] [address] Performed By: #### 2 4356-8 ####[facility] LABORATORYCLIA [id number] [address] Glucose Test strip (U) [Mass/Vol] Negative Normal Negative [facility] Comment on above: Order Comment: Speci men Type: URINE SPECIMENOrdering Facility: [facility] Address: [address] [place] [address] Performed By: #### 2 4356-8 ####[facility] LABORATORYCLIA [id number] [address] Hemoglobin Ql (U) Negative Normal Negative [facility] Comment on above: Order Comment: Speci men Type: URINE SPECIMENOrdering Facility: [facility] Address: [address] [place] [address] Performed By: #### 2 4356-8 ####[facility]ORATORYCLIA [id number] [address] [place] Ketones Ql (U) 2+ Abnormal Negative [facility] Comment on above: Order Comment: Speci men Type: URINE SPECIMENOrdering Facility: [facility] Address: [address] [place] [address] Performed By: #### 2 4356-8 ####[facility]ORATORYCLIA [id number] [address] Leukocyte esterase Test strip Ql (U) Negative Normal Negative [facility] Comment on above: Order Comment: Speci men Type: URINE SPECIMENOrdering Facility: [facility] Address: [address] [place] [address] Performed By: #### 2 4356-8 ####[facility] LABORATORYCLIA [id number] [place] [address] [place] Nitrite Ql (U) Negative Normal Negative [facility] Comment on above: Order Comment: Speci men Type: URINE SPECIMENOrdering Facility: [facility] Address: [address] [place] [address] Performed By: #### 2 4356-8 ####[facility]ORATORYCLIA [id number] [address] STATES [facility] pH (U) 7.5 [pH] Normal 5.0-8.0 [facility] Comment on above: Order Comment: Speci men Type: URINE SPECIMENOrdering Facility: [facility] Address: [address] [place] [address] Performed By: #### 2 4356-8 ####[facility] LABORATORYCLIA [id number] [address] STATES [facility] Protein (U) [Mass/Vol] Negative Normal Negative [facility] Comment on above: Order Comment: Speci men Type: URINE SPECIMENOrdering Facility: [facility] Address: [address] [place] [address] Performed By: #### 2 4356-8 ####[facility]ORATORYCLIA [id number] [address] [place] RBC LM.HPF (Urine sed) [#/Area] 0-3 /HPF Normal 0-3 /HPF [facility] Comment on above: Order Comment: Speci men Type: URINE SPECIMENOrdering Facility: [facility] Address: [address] [place] [address] Performed By: #### 2 4356-8 ####[facility]ORATORYCLIA [id number] [address] Urobilinogen Ql (U) Normal Normal Negative [facility] Comment on above: Order Comment: Speci men Type: URINE SPECIMENOrdering Facility: [facility] Address: [address] [place] [address] Performed By: #### 2 4356-8 ####[facility]ORATORYCLIA [id number] [address] [place] WBC LM.HPF (Urine sed) [#/Area] 0-5 /HPF Normal 0-5 /HPF [facility] Comment on above: Order Comment: Speci men Type: URINE SPECIMENOrdering Facility: [facility] Address: [address] [place] [address] Performed By: #### 2 4356-8 ####[facility]ORATORYCLIA [id number] [address] Urinalysis complete pnl Uron 05-31-2022 Specific gravity (U) [Rel density] 1.005 Normal 1.005-1.030 [facility] Comment on above: Order Comment: Speci men Type: URINE SPECIMENOrdering Facility: [facility] Address: [address] [place] [address] Performed By: #### 2 4356-8 ####[facility]ORATORYCLIA [id number] [address] Result Comment: If s pecific gravity is <1.005 then results may be falsely negative. Serum HCG is recommended. Performed By: #### 2 106-3 ####[facility]ORATORYCLIA [id number] [address] ALLIED HEALTHon 12-31-2021 ALLIED HEALTH HNO ID: [id number] Author: RT Tierney(R) Service: Radiology Author Type: Edge Plugger Type: Allied Health Filed: 12/31/2021 7:25 PM [...] DEPARTMENT: CT; Exam(s) Completed: Abdomen/Pelvis SIGNATURE: RT Tireney(R) PATIENT NAME: Luz Oliveira DATE: December 31, 2021 TIME: 7:20 PM Normal [facility] Bacteria Ur Culton 2 Bacteria identified Cx Nom (U) CULTURE, URINE: Three or more urogenital den organisms. No predominating uropathogen. Recollect if clinically indicated. Normal [facility] Comment on above: Performed By: #### 6 30-4 #### [facility] CLIA [id number] [address] STATES OF [facility] CBC W Auto Differential pane l (Bld)on 12-31-2021 Basophils (Bld) [#/Vol] 10*3/uL Normal <0.11 [facility] Comment on above: Order Comment: Speci men Type: BLOOD SPECIMENOrdering Facility: [facility] Address: [address] [place] [address] [place] [address] Performed By: #### 5 7021-8 ####[facility] LABCLIA [id number] [address] STATES OF [facility] Basophils/100 WBC (Bld) 0.1 % Normal [facility] Comment on above: Order Comment: Speci men Type: BLOOD SPECIMENOrdering Facility: [facility] Address: [address] [place] [address] Performed By: #### 5 7021-8 ####[facility] LABCLIA [id number] [facility] [place] [address] [facility] Differential cell count method Nom (Bld) Auto Normal [facility] Comment on above: Order Comment: Speci men Type: BLOOD SPECIMENOrdering Facility: [facility] Address: [address] [place] [address] Performed By: #### 5 7021-8 ####[facility] LABCLIA [id number] [facility] [place] [address] [facility] Eosinophils (Bld) [#/Vol] 0.03 10*3/uL Normal <0.46 [facility] Comment on above: Order Comment: Speci men Type: BLOOD SPECIMENOrdering Facility: [facility] Address: [address] [place] [address] Performed By: #### 5 7021-8 ####[facility] LABCLIA [id number] [facility], [facility] Eosinophils/100 WBC (Bld) 0.3 % Normal [facility] Comment on above: Order Comment: Speci men Type: BLOOD SPECIMENOrdering Facility: [facility] Address: [address] [place] [address] Performed By: #### 5 7021-8 ####[facility] LABCLIA [id number] [facility] [place] [address] [facility] [place] Erythrocyte distribution width (RBC) [Ratio] 12.0 % Normal 11.5-15.0 [facility] Comment on above: Order Comment: Speci men Type: BLOOD SPECIMENOrdering Facility: [facility] Address: [address] [place] [address] Performed By: #### 5 7021-8 ####[facility] LABCLIA [id number] [facility] [place] [address] [place] Hematocrit (Bld) [Volume fraction] 40.3 % Normal 36.0-46.0 [facility] Comment on above: Order Comment: Speci men Type: BLOOD SPECIMENOrdering Facility: [facility] Address: [address] [place] [address] Performed By: #### 5 7021-8 ####[facility] LABCLIA [id number] [facility] [place] [address] [place] Hemoglobin (Bld) [Mass/Vol] 13.8 g/dL Normal 11.5-15.5 [facility] Comment on above: Order Comment: Speci men Type: BLOOD SPECIMENOrdering Facility: [facility] Address: [address] [place] [address] Performed By: #### 5 7021-8 ####[facility] LABCLIA [id number] [facility] [place] [address] [place] Lymphocytes (Bld) [#/Vol] 1.98 10*3/uL Normal 1.00-4.00 [facility] Comment on above: Order Comment: Speci men Type: BLOOD SPECIMENOrdering Facility: [facility] Address: [address] [place] [address] Performed By: #### 5 7021-8 ####[facility] LABCLIA [id number] [facility] [address] [place] Lymphocytes/100 WBC (Bld) 20.3 % Normal [facility] Comment on above: Order Comment: Speci men Type: BLOOD SPECIMENOrdering Facility: [facility] Address: [address] [place] [address] Performed By: #### 5 7021-8 ####[facility] LABCLIA [id number] [facility] [address] [place] MCH (RBC) [Entitic mass] 30.7 pg Normal 26.0-34.0 [facility] Comment on above: Order Comment: Speci men Type: BLOOD SPECIMENOrdering Facility: [facility] Address: [address] [place] [address] Performed By: #### 5 7021-8 ####[facility] LABCLIA [id number] [facility] [place] [address] [place] MCHC (RBC) [Mass/Vol] 34.2 g/dL Normal 30.5-36.0 [facility] Comment on above: Order Comment: Speci men Type: BLOOD SPECIMENOrdering Facility: [facility] Address: [address] [place] [address] Performed By: #### 5 7021-8 ####[facility] LABCLIA [id number] [facility] [address] [place] MCV (RBC) [Entitic vol] 89.6 fL Normal 80.0-100.0 [facility] Comment on above: Order Comment: Speci men Type: BLOOD SPECIMENOrdering Facility: [facility] Address: [address] [place] [address] Performed By: #### 5 7021-8 ####[facility] LABCLIA [id number] [facility], [address] Monocytes (Bld) [#/Vol] 0.70 10*3/uL Normal <0.87 [facility] Comment on above: Order Comment: Speci men Type: BLOOD SPECIMENOrdering Facility: [facility] Address: [address] [place] [address] Performed By: #### 5 7021-8 ####[facility] LABCLIA [id number] [facility], [facility] Monocytes/100 WBC (Bld) 7.2 % Normal [facility] Comment on above: Order Comment: Speci men Type: BLOOD SPECIMENOrdering Facility: [facility] Address: [address] [place] [address] Performed By: #### 5 7021-8 ####[facility] LABCLIA [id number] [facility] [place] [address] [facility] [place] Neutrophils (Bld) [#/Vol] 7.02 10*3/uL Normal 1.45-7.50 [facility] Comment on above: Order Comment: Speci men Type: BLOOD SPECIMENOrdering Facility: [facility] Address: [address] [place] [address] Performed By: #### 5 7021-8 ####[facility] LABCLIA [id number] [place] [address] [place] Neutrophils/100 WBC (Bld) 72.1 % Normal [facility] Comment on above: Order Comment: Speci men Type: BLOOD SPECIMENOrdering Facility: [facility] Address: [address] [place] [address] Performed By: #### 5 7021-8 ####[facility] LABCLIA [id number] [place] [address] [place] Platelet mean volume (Bld) [Entitic vol] 9.7 fL Normal 9.0-12.7 [facility] Comment on above: Order Comment: Speci men Type: BLOOD SPECIMENOrdering Facility: [facility] Address: [address] [place] [address] Performed By: #### 5 7021-8 ####[facility] LABCLIA [id number] [place] [address] [place] Platelets (Bld) [#/Vol] 251 10*3/uL Normal 150-400 [facility] Comment on above: Order Comment: Speci men Type: BLOOD SPECIMENOrdering Facility: [facility] Address: [address] [place] [address] Performed By: #### 5 7021-8 ####[facility] LABCLIA [id number] [place] [address] [place] RBC (Bld) [#/Vol] 4.50 10*6/uL Normal 3.90-5.20 [facility] Comment on above: Order Comment: Speci men Type: BLOOD SPECIMENOrdering Facility: [facility] Address: [address] [place] [address] Performed By: #### 5 7021-8 ####[facility] LABCLIA [id number] [place] [address] [facility] WBC (Bld) [#/Vol] 9.74 10*3/uL Normal 3.70-11.00 [facility] Comment on above: Order Comment: Speci men Type: BLOOD SPECIMENOrdering Facility: [facility] Address: [address] [place], [place] [address] [id number] Performed By: #### 5 7021-8 ####[facility] LABCLIA [id number] [place] [address] [facility] OF [place] CT ABD/PEL W IVCONon 022 CT ABD/PEL W IVCON * * *Final Report* * * DATE OF EXAM: Dec 31 2021 7:25PM [facility] 0530 - CT ABD/PEL W IVCON [...] Tissues: No significant finding. Lower thorax: Unremarkable. Commercial Maintenance Technician (topogram) images: No additional findings. IMPRESSION: No acute abnormality Atrophic left kidney with cortical scarring and suspected small nonobstructing calculi. Findings may be related to chronic reflux disease or infection Hepatic steatosis Cashier And Waiter/Waitress: CAROLA Transcribe Date/Time: Dec 31 2021 7:37P Dictated by : DIYA FUENTES MD This examination was interpreted and the report reviewed and electronically signed by: DIYA FUENTES MD on Dec 31 2021 7:42PM EST [id number] N Normal [facility] Comprehensive metabolic 2000 panelon 12-31-2021 Albumin [Mass/Vol] 4.0 g/dL Normal 3.4-5.0 [facility] Comment on above: Order Comment: Speci men Type: BLOOD SPECIMENOrdering Facility: [facility] Address: [address] [place] [address] Performed By: #### 2 4323-8, ####[facility] LABCLIA [id number] [place] [address] [place] ALP [Catalytic activity/Vol] 74 U/L Normal 46-116 [facility] Comment on above: Order Comment: Speci men Type: BLOOD SPECIMENOrdering Facility: [facility] Address: [address] [address] Performed By: #### 2 4323-8, ####[employer] LABCLIA [id number] [place] [address] [place] ALT With P-5'-P [Catalytic activity/Vol] 55 U/L Normal 12-78 [facility] Comment on above: Order Comment: Speci men Type: BLOOD SPECIMENOrdering Facility: [facility] Address: [address] [address] Performed By: #### 2 432-8, ####[facility] LABCLIA [id number] [place] [address] [place] Anion gap [Moles/Vol] 2 mmol/L Low 8-16 [facility] Comment on above: Order Comment: Speci men Type: BLOOD SPECIMENOrdering Facility: [facility] Address: [address] [place] [address] Performed By: #### 2 8, ####[facility] LABCLIA [id number] [place] [address] [place] AST With P-5'-P [Catalytic activity/Vol] 29 U/L Normal 15-46 [facility] Comment on above: Order Comment: Speci men Type: BLOOD SPECIMENOrdering Facility: [facility] Address: [address] [place] [address] Result Comment: Spec imen slightly hemolyzed. Performed By: #### 2 4323-05, ####[facility] BATH LABCLIA [id number] [place] [address] [place] Bilirubin [Mass/Vol] 0.2 mg/dL Normal 0.2-1.0 [facility] Comment on above: Order Comment: Speci men Type: BLOOD SPECIMENOrdering Facility: [facility] Address: [address] [place], [place] [address] Performed By: #### 2 8, ####[facility] LABCLIA [id number] [place] [address] [place] Calcium [Mass/Vol] 9.1 mg/dL Normal 8.5-10.1 [facility] Comment on above: Order Comment: Speci men Type: BLOOD SPECIMENOrdering Facility: [facility] Address: [address] [place], [place] [address] Performed By: #### 2 4328, ####[facility] LABCLIA [id number] [place] [address] [place] Chloride [Moles/Vol] 100 mmol/L Normal 98-107 [facility] Comment on above: Order Comment: Speci men Type: BLOOD SPECIMENOrdering Facility: [facility] Address: [address] [place] [address] Performed By: #### 2 4323-8, ####[facility] B[facility] LABCLIA [id number] [facility] [address] [place] CO2 [Moles/Vol] 33 mmol/L High 21-32 [facility] Comment on above: Order Comment: Speci men Type: BLOOD SPECIMENOrdering Facility: [facility] Address: [address] [place] [address] Performed By: #### 2 4323-8, ####[facility] LABCLIA [id number] [place] [address] [place] [facility] Creatinine [Mass/Vol] 0.78 mg/dL Normal 0.51-0.95 [facility] Comment on above: Order Comment: Speci men Type: BLOOD SPECIMENOrdering Facility: [facility] Address: [address] [place] [address] Performed By: #### 2 4323-8, ####[facility] LABCLIA [id number] [facility] [address] [facility] ESTIMATED GLOMERULAR FILTRATION RATE 110 mL/min/1.73m??? Normal >=60 [facility] Comment on above: Order Comment: Speci men Type: BLOOD SPECIMENOrdering Facility: [facility] Address: [address] [place] [address] Result Comment: Tierra mated Glomerular Filtration Rate [...] actual GFR. Performed By: #### 2 4323-8, ####[facility] LABCLIA [id number] [place] [address] [place] Glucose [Mass/Vol] 94 mg/dL Normal 70-99 [facility] Comment on above: Order Comment: Speci men Type: BLOOD SPECIMENOrdering Facility: [facility] Address: [address] [place] [address] Result Comment: The [place] Diabetes Association (ADA) provides guidance for cutoff [...] Standards of Medical Care in Diabetes 2016, [place] [employer] Association. Diabetes Care. 2016.39(Suppl 1). Performed By: #### 2 4323-8, 41921-6 ####[employer] [facility] LABCLIA [id number] [place] [address] [place] Potassium [Moles/Vol] 3.6 mmol/L Normal 3.5-5.1 [facility] Comment on above: Order Comment: Speci men Type: BLOOD SPECIMENOrdering Facility: [facility] Address: [address] [place] [address] Result Comment: Spec imen slightly hemolyzed. Performed By: #### 2 4323-8, ####[facility] LABCLIA [id number] [place] [address] [place] Protein [Mass/Vol] 7.7 g/dL Normal 6.4-8.2 [facility] Comment on above: Order Comment: Speci men Type: BLOOD SPECIMENOrdering Facility: [facility] Address: [address] [place] [address] Performed By: #### 2 4323-8, ####[facility] LABCLIA [id number] [facility] [address] [place] Sodium [Moles/Vol] 135 mmol/L Low 136-145 [facility] Comment on above: Order Comment: Speci men Type: BLOOD SPECIMENOrdering Facility: [facility] Address: [address] [place], [place] [address] Performed By: #### 2 4323-8, ####[facility] LABCLIA [id number] [facility] [address] [place] Urea nitrogen [Mass/Vol] 10 mg/dL Normal 7-18 [facility] Comment on above: Order Comment: Speci men Type: BLOOD SPECIMENOrdering Facility: [facility] Address: [address] [place] [address] Performed By: #### 2 4323-8, ####[facility] LABCLIA [id number] [facility] [address] [facility] ED NOTEon 12-31-2021 ED NOTE HNO ID: [id number] Author: Amy Pena RN Service: Emergency Medicine Author Type: Registered Nurse Type: ED Notes Filed: 12/31/2021 7:03 PM Note Text: Patient resting in room. Patient updated on the plan of care. Bed in low locked position. Call light in reach. Monitoring maintained. Safety and comfort care maintained. Normal [facility] ED NOTE HNO ID: [id number] Author: Amy Pena RN Service: Emergency Medicine Author Type: Registered Nurse Type: ED Notes Filed: 12/31/2021 6:34 PM Note Text: Patient resting in room. Patient updated on the plan of care. Bed in low locked position. Call light in reach. Monitoring maintained. Safety and comfort care maintained. [facility] ED NOTE HNO ID: [id number] Author: Amy Pena RN Service: Emergency Medicine Author Type: Registered Nurse Type: ED Notes Filed: 12/31/2021 5:20 PM Note Text: Patient resting in room. Patient updated on the plan of care. Bed in low locked position. Call light in reach. Monitoring maintained. Safety and comfort care maintained. Normal [facility] ED NOTE HNO ID: [id number] Author: Amy Pena RN Service: Emergency Medicine Author Type: Registered Nurse Type: ED Notes Filed: 12/31/2021 4:55 PM Note Text: Patient updated on the plan of care. Patient medicated per order. Allergies reviewed. Patient verbalized understanding. Normal 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 Emesis x 1 today. Normal BM today. Pt denies dysuria or hematuria. Hx of kidney stone and UTI Normal [facility] ED PROV NOTEon 12-31-2021 ED PROV NOTE HNO ID: [id number] Author: Mary Pereira DO Service: Emergency Medicine [...] (more content not included)... Normal [facility] ED PROV NOTE HNO ID: [id number] Author: Jayde Yeager MD Service: Emergency Medicine [...] Jayde Yeager MD 12/31/212020 Normal [facility] HCG Preg Ur Qlon 12-31-2021 HCG ( test) Ql (U) Negative Normal Negative [facility] Comment on above: Order Comment: Speci men Type: URINE SPECIMENOrdering Facility: [facility] Address: [address] [place] [address], [place] [address] Result Comment: This test is intended to aid in the early detection of . Very dilute urine samples, as indicated by a low specific gravity, may not contain industrial sales representative levels of hCG. This test detects [...] for . Performed By: #### 2 106-3 ####[facility] LABCLIA [id number] [place] [address] [place] Magnesium SerPl-mCncon 12-31 Magnesium [Mass/Vol] 1.9 mg/dL Normal 1.6-2.3 [facility] Comment on above: Order Comment: Speci men Type: BLOOD SPECIMENOrdering Facility: [facility] Address: [place] [address] Performed By: #### 2 4323-8, 59182-6 ####[facility] LABCLIA [id number] [place] [address] [place] US DOPPLER COMPLETEon [...] to body habitus. 4. No free fluid. Cashier And Waiter/Waitress: PSCB Transcribe Date/Time: Dec 31 2021 6:24P Dictated by : KAITY SHAY MD This examination was interpreted and the report reviewed and electronically signed by: KAITY SHAY MD on Dec 31 2021 6:28PM EST [id number] N Normal [facility] US FEMALE PELVIS TRANSABD LT Don [...] to body habitus. 4. No free fluid. Cashier And Waiter/Waitress: CAROLA Transcribe Date/Time: Dec 31 2021 6:24P Dictated by : KAITY SHAY MD This examination was interpreted and the report reviewed and electronically signed by: KAITY SHAY MD on Dec 31 2021 6:28PM EST [id number] N Normal [facility] US FEMALE PELVIS TRANSVAGon 12-31-2021 US [...] to body habitus. 4. No free fluid. Cashier And Waiter/Waitress: [facility] Transcribe Date/Time: Dec 31 2021 6:24P Dictated by : KAITY SHAY MD This examination was interpreted and the report reviewed and electronically signed by: KAITY SHAY MD on Dec 31 2021 6:28PM EST [id number] N Normal [facility] Urinalysis complete panel (U )on 12-31-2021 Bacteria LM.HPF (Urine sed) [#/Area] Many Abnormal None Seen [facility] Comment on above: Order Comment: Speci men Type: URINE SPECIMENOrdering Facility: [facility] Address: [address] [place] [address] Performed By: #### 2 4356-8 ####[facility] LABCLIA [id number] [address] STATES OF [facility] Bilirubin Ql (U) Negative Normal Negative [facility] Comment on above: Order Comment: Speci men Type: URINE SPECIMENOrdering Facility: [facility] Address: [address] [address] Performed By: #### 2 4356-8 ####[facility] LABCLIA [id number] [place] [id number] [place] Clarity (Unsp spec) Clear Normal Clear [facility] Comment on above: Order Comment: Speci men Type: URINE SPECIMENOrdering Facility: [facility] Address: [address] [place] [address] Performed By: #### 2 4356-8 ####[facility] LABCLIA [id number] [facility] [address] [place] Color (U) Yellow Normal Yellow [facility] Comment on above: Order Comment: Speci men Type: URINE SPECIMENOrdering Facility: [facility] Address: [address] [place] [address] Performed By: #### 2 4356-8 ####[facility] LABCLIA [id number] [facility] [address] [facility] Epithelial cells LM.HPF (Urine sed) [#/Area] Many Normal [facility] Comment on above: Order Comment: Speci men Type: URINE SPECIMENOrdering Facility: [facility] Address: [address] [place] [address] Performed By: #### 2 4356-8 ####[facility] LABCLIA [id number] [facility] [address] [facility] Glucose Test strip (U) [Mass/Vol] Negative Normal Negative [facility] Comment on above: Order Comment: Speci men Type: URINE SPECIMENOrdering Facility: [facility] Address: [address] [place] [address] Performed By: #### 2 4356-8 ####[facility] LABCLIA [id number] [facility] [address] [place] Hemoglobin Ql (U) 2+ Abnormal Negative [facility] Comment on above: Order Comment: Speci men Type: URINE SPECIMENOrdering Facility: [facility] Address: [address] [place] [address] Performed By: #### 2 4356-8 ####[facility] LABCLIA [id number] [facility] [place] [address] [place] Ketones Ql (U) Negative Normal Negative [facility] Comment on above: Order Comment: Speci men Type: URINE SPECIMENOrdering Facility: [facility] Address: [address] [place] [address] Performed By: #### 2 4356-8 ####[facility] LABCLIA [id number] [facility] [place] [address] [facility] [place] Leukocyte esterase Test strip Ql (U) Trace Abnormal Negative [facility] Comment on above: Order Comment: Speci men Type: URINE SPECIMENOrdering Facility: [facility] Address: [address] [place] [address] Performed By: #### 2 4356-8 ####[facility] LABCLIA [id number] [facility] [address] [place] Nitrite Ql (U) Negative Normal Negative [facility] Comment on above: Order Comment: Speci men Type: URINE SPECIMENOrdering Facility: [facility] Address: [address] [place] [address] Performed By: #### 2 4356-8 ####[facility] LABCLIA [id number] [facility] [address] [place] pH (U) 6.0 [pH] Normal 5.0-8.0 [facility] Comment on above: Order Comment: Speci men Type: URINE SPECIMENOrdering Facility: [facility] Address: [address] [place] [address] Performed By: #### 2 4356-8 ####[facility] LABCLIA [id number] [facility] [address] [place] Protein (U) [Mass/Vol] Normal [facility] Comment on above: Order Comment: Speci men Type: URINE SPECIMENOrdering Facility: [facility] Address: [address] [place] [address] Result Comment: Visi ble blood causes falsely elevated results for analyte Protein. Due to this limitation, Protein will not be reported for patients whose urine contains visible blood. Performed By: #### 2 4356-8 ####[facility] LABCLIA [id number] [place] [address] [place] [facility] RBC LM.HPF (Urine sed) [#/Area] 11-25 /HPF Abnormal 0-3 /HPF [facility] Comment on above: Order Comment: Speci men Type: URINE SPECIMENOrdering Facility: [facility] Address: [address] [place] [address] Performed By: #### 2 4356-8 ####[facility] LABCLIA [id number] [place] [address] [facility] Specific gravity (U) [Rel density] >=1.030 High 1.005-1.030 [facility] Comment on above: Order Comment: Speci men Type: URINE SPECIMENOrdering Facility: [facility] Address: [address] [place] [address] Performed By: #### 2 4356-8 ####[facility] LABCLIA [id number] [address] Urobilinogen Ql (U) 0.2 EU/dL Normal 0.2-1.0 EU/dL [facility] Comment on above: Order Comment: Speci men Type: URINE SPECIMENOrdering Facility: [facility] Address: [address] [place] [address] Performed By: #### 2 4356-8 ####[facility] LABCLIA [id number] [place] [id number] [facility] WBC LM.HPF (Urine sed) [#/Area] 6-10 /HPF Abnormal 0-5 /HPF [facility] Comment on above: Order Comment: Speci men Type: URINE SPECIMENOrdering Facility: [facility] Address: [address] [place] [address] Performed By: #### 2 4356-8 ####[facility] LABCLIA [id number] [place] [address] [facility] COVID 19, [facility](RT COLLECT )on 03-17-2021 SARS-CoV-2 (COVID-19) RNA CHICHO+probe Ql (Unsp spec) Not detected Normal Not Detect [facility] Comment on above: Result Comment: Norm al Reference Range: Not Detected Method:(RT-PCR) real-time reverse transcriptase PCR Luminex Consano Instrument *The Food and Drug Administration (FDA) has issued an Emergency Use Authorization (EAU) for the Consano SARS-CoV-2 Assay for the rapid detection of [...] exposure. Performed By: #### L 3400.2405 #### [facility] [address] [place], [address] HAND RIGHT COMPLETEon 2020 HAND RIGHT COMPLETE EXAM: Right hand HISTORY: Pain after shutting a door on the hand on 01/27/2021. TECHNIQUE: 3 views of the right hand were obtained. FINDINGS: There is no evidence of fracture or dislocation. There are no suspicious bone lesions. Soft tissues are normal. IMPRESSION: No acute findings. Normal [facility] BASIC METABOLIC PANELon 01-0 Anion gap [Moles/Vol] 13 mmol/L Normal 10 - 20 [facility] Comment on above: Performed By: #### B MP #### [address] [address] Calcium [Mass/Vol] 9.5 mg/dL Normal 8.6 - 10.3 [facility] Comment on above: Performed By: #### B MP #### [address] [address] Chloride [Moles/Vol] 104 mmol/L Normal 98 - 107 [facility] Comment on above: Performed By: #### B MP #### [address] [address] Creatinine [Mass/Vol] 0.76 mg/dL Normal 0.50 - 1.05 [facility] Comment on above: Performed By: #### B MP #### [address] [address] GFR- AM. >60 Normal >60 [facility] Comment on above: Result Comment: CALC ULATIONS OF ESTIMATED GFR ARE PERFORMED USING THE MDRD STUDY EQUATION FOR THE IDMS-TRACEABLE CREATININE METHODS. CLIN CHEM 2007;53:766-72 Performed By: #### B MP #### [address] [address] GFR-NON AM. >60 Normal >60 [facility] Comment on above: Performed By: #### B MP #### [address] [address] Glucose [Mass/Vol] 88 mg/dL Normal 74 - 99 [facility] Comment on above: Performed By: #### B MP #### [address] [address] HCO3 (Bld) [Moles/Vol] 27 mmol/L Normal 21 - 32 [facility] Comment on above: Performed By: #### B MP #### [address] [address] Potassium [Moles/Vol] 3.8 mmol/L Normal 3.5 - 5.3 [facility] Comment on above: Performed By: #### B MP #### [address] [address] Sodium [Moles/Vol] 140 mmol/L Normal 136 - 145 [facility] Comment on above: Performed By: #### B MP #### [address] [address] Urea nitrogen [Mass/Vol] 11 mg/dL Normal 6 - 23 [facility] Comment on above: Performed By: #### B MP #### [address] [address] CBCon 10-17-2019 Erythrocyte distribution width (RBC) [Ratio] 12.5 % Normal 11.5 - 14.5 [facility] Comment on above: Performed By: #### C BC #### [address] [address] Hematocrit (Bld) [Volume fraction] 42.6 % Normal 36.0 - 46.0 [facility] Comment on above: Performed By: #### C BC #### [address] [address] Hemoglobin (Bld) [Mass/Vol] 14.5 g/dL Normal 12.0 - 16.0 [facility] Comment on above: Performed By: #### C BC #### [address] [address] MCHC (RBC) [Mass/Vol] 34.1 g/dL Normal 32.0 - 36.0 [facility] Comment on above: Performed By: #### C BC #### [address] [address] MCV (RBC) [Entitic vol] 91 fL Normal 80 - 100 [facility] Comment on above: Performed By: #### C BC #### [address] [address] Platelets (Bld) [#/Vol] 270 10*3/uL Normal 150 - 450 [facility] Comment on above: Performed By: #### C BC #### [address] [address] RBC (Bld) [#/Vol] 4.67 x10E12/L Normal 4.00 - 5.20 [facility] Comment on above: Performed By: #### C BC #### [address] [address] WBC (Bld) [#/Vol] 8.2 10*3/uL Normal 4.4 - 11.3 [facility] Comment on above: Performed By: #### C BC #### [address] [address] [address] HEAD WO CONTRASTon 2019 CT HEAD WO CONTRAST Patient Name: BIBI, LUZ STUDY: CT of the head without contrast INDICATION: dizzy/trauma COMPARISON: None ACCESSION NUMBER(S): [id number] ORDERING CLINICIAN: RASHMI FERRERA TECHNIQUE: A CT [...] Electronically signed by: LILI MONTEIRO MD Normal [facility] HCG,URINEon 10-17-2019 Beta HCG ( test) Ql (U) Negative Normal Negative [facility] Comment on above: Performed By: #### H U #### [place] [address] Provider Note - ED v2on Provider Note - ED v2 Provider Note - ED v2: Chart Review: ED NOTES ED NOTES: ====HPI==== 19 year old female comes to the ED with c/o a syncope episode [employer]IN[employer]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 Patient states she believes she has a [...] made to minimize errors. Minor errors in hair specialist may be present. Please call if questions. 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: Is : no(1) Is : no(1) RESULTS/VITAL [...] at 10/17/2019 01:39 Appearance, Urine CLEAR Specific Wilson, Urine 1.021 pH, Urine 7.0 Protein, Urine [...] SIGNS: T PRBP SpO2O2(LPM) %FiO2 Method 17-Oct-2019 01:27:00-8416701/80 100 room air, no respiratory support 16-Oct-2019 22:16:[id number] /78 99 room air, no respiratory support 16-Oct-2019 22:00:00-37.757817685 /78 99 room air, no respiratory support [...] Referenced From Triage - ED 16-Oct-2019 22:16 [facility] Risk Screen - Adult Emergenc yon 10-17-2019 [...] instruction; written material Cultural Considerationsnone Developmental Considerationsnone Amish Considerationsnone Other Learnerssignificant other Learning Assessment (Other Learner): Learning Assessment (Other Learner): Other learner availableyes... Learnersignificant other Factors Influencing Readiness to Learninterest in learning Factors that Impact Ability to Learnnone Devices/Methods Used to Communicatenone Learning Preferencesverbal instruction, written material Cultural Considerationsnone Developmental Considerationsnone Amish Considerationsnone Pressure Injury/TB/Substance: Pressure Injury: Do you have a coughno Substance Use Current or Former Historynever: Cigarette/Tobacco, e-Cigarette/Vaping, Alcohol, Street Drugs Admission Risk Screen: Significant IndicatorsComplete CAGE: CAGE: Is this an injured patient at a Trauma Center ([facility]/[place]): no Electronic Signatures: Lisette Junior (RN) (Signed 16-Oct-2019 22:23) Authored: Preferred Language, Advanced Directives, Family Violence Adult, Learning Assessment (Patient), Learning Assessment (Other Learner), Pressure Injury/TB/Substance, CAGE Last Updated: 16-Oct-2019 22:23 by Lisette Junior (RN) [facility] Triage - EDon 10-17-2019 Triage - ED [...] BMI (kg/m2): 29.674 Calculated BSA (m2) 1.75 [place] Coma Scale: Best Eye Response: (E4) spontaneous Best Motor Response: (M6) obeys commands Best Verbal Response: (V5) oriented Amador Score: 15 Cough lasting greater than 3 weeks: no Patient immunocompromised related to: N/A Travel outside of [facility]: no Allergies: yes Last menstrual [...] and spouse/significant other Language: Spoken Language Preferred: Cymro Reading Language Preferred: Cymro Canvas Worker Requested: no health care facilities inspector was requested MDRO: History of MDRO: no [...] 16-Oct-2019 22:22 by Lisette Junior (RN) Normal [facility] UA MICROSCOPICon 10-17-2019 BACTERIA 1+ /HPF Abnormal [facility] Comment on above: Performed By: #### U AMIC #### [place] [address] MUCUS 1+ /LPF Normal [facility] Comment on above: Performed By: #### U AMIC #### [place] [address] RBC (Bld) [#/Vol] 0-5 Normal 0-5 [facility] Comment on above: Performed By: #### U AMIC #### [place] [address] SQUAMOUS EPITH. CELLS 1+ /HPF Normal [facility] Comment on above: Performed By: #### U AMIC #### [place] [address] TRANSITIONAL EPITH.CELLS Negative Normal [facility] Comment on above: Performed By: #### U AMIC #### [place] [address] WBC (Bld) [#/Vol] 5-20 Abnormal 0-5 [facility] Comment on above: Performed By: #### U AMIC #### [place] [address] URINALYSISon 10-17-2019 Appearance (U) CLEAR Normal CLEAR [facility] Comment on above: Result Comment: This is a corrected result. Previous value was HAZY, verified at 10/17/2019 01:39 Performed By: #### U A #### [address] [address] Color (U) YELLOW Normal STRAW,YELLOW [facility] Comment on above: Result Comment: This is a corrected result. Previous value was Red, verified at 10/17/2019 01:39 Performed By: #### U A #### [address] [address] Bilirubin (U) [Mass/Vol] Negative Normal NEGATIVE [facility] Comment on above: Performed By: #### U A #### [place] [id number] BLOOD SMALL(1+) Abnormal NEGATIVE [facility] Comment on above: Performed By: #### U A #### [place] [id number] Glucose [Mass/Vol] Negative Normal NEGATIVE [facility] Comment on above: Performed By: #### U A #### [place] [address] Ketones Ql (U) Negative Normal NEGATIVE [facility] Comment on above: Performed By: #### U A #### [place] [address] Leukocyte esterase Test strip Ql (U) TRACE Abnormal NEGATIVE [facility] Comment on above: Performed By: #### U A #### [address] [address] Nitrite Ql (U) Negative Normal NEGATIVE [facility] Comment on above: Performed By: #### U A #### [place] [id number] pH (Bld) 7.0 Normal 5.0 - 8.0 [facility] Comment on above: Performed By: #### U A #### [place] [id number] Protein (U) [Mass/Vol] Negative Normal NEGATIVE [facility] Comment on above: Performed By: #### U A #### [place] [id number] Specific gravity (U) [Rel density] 1.021 Normal 1.005 - 1.035 [facility] Comment on above: Performed By: #### U A #### [address] [address] Urobilinogen Qn (U) <2.0 Normal 0.0 - 1.9 [facility] Comment on above: Performed By: #### U A #### [address] [address] URINE CULTURE,BACTERIALon URINE CULTURE,BACTERIAL TEST URINE CULTURE,BACTERIAL WAS CANCELLED, 10/19/2019 16:21 PATIENT DISCHARGED. PATIENT: LUZ MTZ LOCATION: [facility]#: [id number] : 89 AGE: SEX: F ORDERED BY: RASHMI FERRERA SOURCE: URINE COLLECTED: 10/17/19 02:24 ANTIBIOTICS AT JAMIE.: RECEIVED : SITE: Clean Catch/Voided R E S U L T S URINE CULTURE,BACTERIAL CANCELLED 10/19/19 16:21 Normal [facility] Comment on above: Performed By: #### U [facility] #### [facility] [address] [place] [address] XR Foot 3+ Views Righton XR Foot 3+ Views Right Exam Date/Time: 04/28/2019 13:58 EDT Reason for Exam: Pain, Traumatic Report STUDY: XR Foot 3+ Views Right;; 04/28/2019 1:58 pm INDICATION: Pain, Traumatic. COMPARISON: None. ACCESSION NUMBER(S): [id number] ORDERING CLINICIAN: Alex Grubbs FINDINGS: No acute fracture or malalignment. No radiopaque foreign body. IMPRESSION: No acute osseous abnormality FINAL REPORT Dictated: 04/28/2019 2:30 pm Nancy Mills MD Signed (Electronic Signature): 04/28/2019 2:30 pm Signed by: Nancy Mills MD Technologist: JOHNSON Normal [facility] ABO/Rh Echoon 12-25-2018 ABO/Rh E Interp... Positive [facility] Comment on above: Performed By: #### 2 [id number] #### [facility] [address] [place] [address] BhCG Quanton 12-25-2018 Beta hCG Qnt <0.6 Normal 0.0-2.9 [facility] Comment on above: Performed By: #### 2 719891 #### [facility] [address] [place] [address] UA Completeon 12-25-2018 Color (U) Yellow Normal Yellow [facility] Comment on above: Performed By: #### 2 764342 #### [facility] [address] [place] [address] Glucose (U) [Mass/Vol] Negative Normal Negative [facility] Comment on above: Performed By: #### 2 240458 #### [facility] [place] [address] Ketones Ql (U) Negative Normal Negative [facility] Comment on above: Performed By: #### 2 882211 #### [facility] [address] [place] [address] RBC (U) [#/Vol] /uL Abnormal 0-3 [facility] Comment on above: Performed By: #### 2 116500 #### [facility] [address] [place] [address] UA Blood 3+ Normal Negative [facility] Comment on above: Performed By: #### 2 562267 #### [facility] [address] [place] [address] UA Bacteria Trace Abnormal None [facility] Comment on above: Performed By: #### 2 210541 #### [facility] [address] [place] [address] UA Clarity Clear Normal Clear [facility] Comment on above: Performed By: #### 2 698603 #### [facility] [address] [place] [address] UA Leuk Est Negative Normal Negative [facility] Comment on above: Performed By: #### 2 999317 #### [facility] [address] [place] [address] UA Mucous Trace Abnormal Trace [facility] Comment on above: Performed By: #### 2 237610 #### [facility] [address] [place] [address] UA Nitrite Negative Normal Negative [facility] Comment on above: Performed By: #### 2 296925 #### [facility] [address] [place] [address] UA pH 8.0 Normal 4.6-8.0 [facility] Comment on above: Performed By: #### 2 432115 #### [facility] [address] [place] [address] UA Protein Negative Normal Negative [facility] Comment on above: Performed By: #### 2 080616 #### [facility] [address] [place] [address] UA Spec Grav 1.012 Normal 1.003-1.030 [facility] Comment on above: Performed By: #### 2 194198 #### [facility] [address] [place] [address] UA Squam Epithelial 0-5 Normal 0-[address] [facility] Comment on above: Performed By: #### 2 876098 #### [facility] [address] [place] [address] UA Urobilinogen Negative Normal [facility] Comment on above: Result Comment: Due to a manufacturing issue, low positive urobilinogen results may be fasely positive. Correlate with urine bilirubin and additional clinical/laboratory findings to assess the risk of hemolytic anemia or liver disease. If clinically indicated, repeat testing with an alternate method is available by contacting the laboratory within 24 hours. Performed By: #### 2 307167 #### [facility] [address] [place] [address] UA WBC 5-10 Abnormal 0-5 [facility] Comment on above: Performed By: #### 2 965183 #### [facility] [address] [place] [address] Urobilinogen Qn (U) Negative Normal Negative [facility] Comment on above: Performed By: #### 2 879301 #### [facility] [address] [place] [address] C Urineon 09-05-2018 C Urine Final Report: Light growth of Normal skin den isolated Normal [facility] Comment on above: Performed By: #### 2 304851 #### [facility] [address] [place] [address] .Manual Abson 09-03-2018 Basophil Abs Man 0.0 10x3/ Normal 0.0-0.2 [facility] Comment on above: Order Comment: Order Added by Discern Expert. Performed By: #### 3 [id number] #### [facility] [address] [place] [address] Eos Abs Man 0.0 10x3/ Normal 0.0-0.5 [facility] Comment on above: Order Comment: Order Added by Discern Expert. Performed By: #### 3 [id number] #### [facility] [address] [place] [address] Lymph Abs Man 0.5 10x3/ Low 1.2-3.4 [facility] Comment on above: Order Comment: Order Added by Discern Expert. Performed By: #### 3 [id number] #### [facility] [address] [place] [address] Uintah Abs Man 0.4 10x3/ Normal 0.0-0.7 [facility] Comment on above: Order Comment: Order Added by Discern Expert. Performed By: #### 3 [id number] #### [facility] [address] [place] [address] Segs Abs Man 7.8 10x3/ High 1.4-6.5 [facility] Comment on above: Order Comment: Order Added by Discern Expert. Performed By: #### 3 [id number] #### [facility] [address] [place] [id number] BMPon 09-03-2018 Anion gap [Moles/Vol] 14 mmol/L Normal 10-20 [facility] Comment on above: Performed By: #### 2 569662 #### [facility] [address] [place] [id number] Calcium [Mass/Vol] 8.8 mg/dL Normal 8.5-10.7 [facility] Comment on above: Performed By: #### 2 809317 #### [facility] [place] [id number] Chloride [Moles/Vol] 102 mmol/L Normal 98-107 [facility] Comment on above: Performed By: #### 2 485219 #### [facility] [address] [place] [address] CO2 [Moles/Vol] 24.0 mmol/L Normal 21.0-32.0 [facility] Comment on above: Performed By: #### 2 629463 #### [facility] [address] [place] [address] Creatinine [Mass/Vol] 0.8 mg/dL Normal 0.5-1.1 [facility] Comment on above: Performed By: #### 2 310399 #### [facility] [address] [place] [address] Glucose [Mass/Vol] 100 mg/dL High 70-99 [facility] Comment on above: Performed By: #### 2 442606 #### [facility] [address] [place] [address] Potassium [Moles/Vol] 3.2 mmol/L Low 3.5-5.3 [facility] Comment on above: Performed By: #### 2 313937 #### [facility] [address] [place] [address] Sodium [Moles/Vol] 137 mmol/L Normal 136-145 [facility] Comment on above: Performed By: #### 2 530071 #### [facility] [address] [place] [address] Urea nitrogen [Mass/Vol] 11 mg/dL Normal 6-23 [facility] Comment on above: Performed By: #### 2 496510 #### [facility] [address] [place] [address] Urea nitrogen/Creatinine [Mass ratio] 13.8 ratio Normal 5.4-30.0 [facility] Comment on above: Performed By: #### 2 733445 #### [facility] [address] [place] [address] CBC w/ Auto Diffon 8 Erythrocyte distribution width (RBC) [Ratio] 13.0 % Normal 11.5-14.5 [facility] Comment on above: Performed By: #### 2 289810 #### [facility] [address] [place] [address] Hematocrit (Bld) [Volume fraction] 37.2 % Normal 36.0-48.0 [facility] Comment on above: Performed By: #### 2 773164 #### [facility] [address] [place] [address] Hemoglobin (Bld) [Mass/Vol] 12.7 g/dL Normal 12.0-16.0 [facility] Comment on above: Performed By: #### 2 801861 #### [facility] [address] [place] [address] MCH (RBC) [Entitic mass] 31.2 pg High 27.0-31.0 [facility] Comment on above: Performed By: #### 2 492032 #### [facility] [address] [place] [address] MCHC (RBC) [Mass/Vol] 34.2 g/dL Normal 33.0-37.0 [facility] Comment on above: Performed By: #### 2 [id number] #### KOBY RemHemo [address] [place] [address] MCV (RBC) [Entitic vol] 91.4 fL Normal 78.0-100.0 [facility] Comment on above: Performed By: #### 2 [id number] #### KOBY RemHemo [address] [place] [address] Platelet mean volume (Bld) [Entitic vol] 8.2 fL Normal 7.4-11.0 [facility] Comment on above: Performed By: #### 2 [id number] #### KOBY RemHemo [address] [place] [address] Platelets (Bld) [#/Vol] 201 E3/mcL Normal 130-400 [facility] Comment on above: Performed By: #### 2 [id number] #### KOBY RemHemo [address] [place] [address] RBC (Bld) [#/Vol] 4.07 E6/mcL Normal 3.90-5.40 [facility] Comment on above: Performed By: #### 2 [id number] #### KOBY MckeonHemo [address] [place] [address] WBC (Bld) [#/Vol] 8.9 E3/mcL Normal 3.6-11.0 [facility] Comment on above: Performed By: #### 2 [id number] #### KOBY MckeonHemo [address] [place] [address] CT Abdomen/Pelvis w/ Contras ton 09-03-2018 CT Abdomen/Pelvis w/ Contrast Exam Date/Time: 09/03/2018 21:35 EST Reason for Exam: Pain Report STUDY: CT Abdomen/Pelvis w/ Contrast; 09/03/2018 9:35 pm INDICATION: Pain. Pain COMPARISON: No comparison available ACCESSION NUMBER(S): [id number] ORDERING CLINICIAN: Miles Horn TECHNIQUE: CT of [...] by: Joaquin Lobo MD Technologist: JOHN, Paul [facility] Hep Func Panelon 09-03-2018 Albumin [Mass/Vol] 4.3 g/dL Normal 3.4-5.0 [facility] Comment on above: Performed By: #### 2 [id number] #### [address] [place] [address] Albumin/Globulin [Mass ratio] 1.7 {ratio} Normal 1.1-1.9 [facility] Comment on above: Performed By: #### 2 [id number] #### KOBY MckeonChem [address] [place] [address] Alk Phos 59 Int._Unit/L Normal 33-139 [facility] Comment on above: Performed By: #### 2 [id number] #### [facility] [address] [place] [address] ALT [Catalytic activity/Vol] 18 Int._Unit/L Normal 7-45 [facility] Comment on above: Performed By: #### 2 [id number] #### [facility] [address] [place] [address] AST [Catalytic activity/Vol] 18 Int._Unit/L Normal 9-39 [facility] Comment on above: Performed By: #### 2 [id number] #### [employer]OB[facility] [employer] [address] [place] [address] Bili Direct 0.16 mg/dL Normal 0.00-0.30 [facility] Comment on above: Performed By: #### 2 [id number] #### [employer] [address] [place] [address] Bili Indirect 0.7 Normal [facility] Comment on above: Performed By: #### 2 066207 #### [employer] [employer] [address] [place] [address] Bili Total 0.9 mg/dL Normal 0.0-1.2 [facility] Comment on above: Performed By: #### 2 674672 #### [facility] [address] [place] [address] Globulin (S) [Mass/Vol] 3.0 g/dL Normal 2.0-4.0 [facility] Comment on above: Performed By: #### 2 [id number] #### [address] [place] [address] Protein [Mass/Vol] 6.8 g/dL Normal 6.4-8.2 [facility] Comment on above: Performed By: #### 2 910168 #### [employer]OB[facility] [employer] [address] [place] [address] Influenza A&B Agon 8 Influenzae A Ag Negative Normal Negative [facility] Comment on above: Performed By: #### 2 989814 #### KOBY [address] [address] Influenzae B Ag Negative Normal Negative [facility] Comment on above: Performed By: #### 2 989730 #### KOBY [address]keon[address] [address] Lactic Acidon 09-03-2018 Lactate [Moles/Vol] 0.8 mmol/L Normal 0.4-2.[address] [facility] Comment on above: Performed By: #### 2 [id number] #### KOBYTiny Mckeon[address] [address] Lipase Levelon 09-03-2018 Lipase Lvl 12 Int._Unit/L Normal 9-82 [facility] Comment on above: Performed By: #### 2 [id number] #### KOBYTiny [address]keon[address] [address] Manual Diffon 09-03-2018 Band form neutrophils/100 WBC (Bld) 1 Normal 0-1 [facility] Comment on above: Order Comment: Order Added by Discern Expert. Performed By: #### 2 [id number] #### KOBY MckeonHemo [address] [place] [address] Basophil Man 0 % Normal 0-1 [facility] Comment on above: Order Comment: Order Added by Discern Expert. Performed By: #### 2 [id number] #### KOBY RemHemo [address] [place] [address] Eosinophils/100 WBC (Bld) 0 % Normal 0-5 [facility] Comment on above: Order Comment: Order Added by Discern Expert. Performed By: #### 2 [id number] #### KOBY MckeonHemo [address] [place] [address] Lymphocytes/100 WBC (Bld) 6 % Low 14-48 [facility] Comment on above: Order Comment: Order Added by Discern Expert. Performed By: #### 2 [id number] #### KOBY MckeonHemo [address] [place] [address] Monocyte Man 5 % Normal 1-11 [facility] Comment on above: Order Comment: Order Added by Discern Expert. Performed By: #### 2 [id number] #### KOBY MckeonHemo [address] [place] [address] RBC morphology finding Nom (Bld) NORMAL Normal [facility] Comment on above: Order Comment: Order Added by Discern Expert. Performed By: #### 2 [id number] #### KOBY MckeonHemo [address] [place] [address] Segs Man 88 % High 37-75 [facility] Comment on above: Order Comment: Order Added by Discern Expert. Performed By: #### 2 [id number] #### KOBY MckeonHemo [address] [place] [address] TSHon 09-03-2018 TSH Qn 0.89 mcIU/mL Normal 0.30-5.60 [facility] Comment on above: Order Comment: With T4fr Reflex Performed By: #### 2 [id number] #### KOBY MckeonChem [address] [place] [address] U BhCG Qlton 09-03-2018 HCG.beta subunit Qn Negative Normal Neg [facility] Comment on above: Performed By: #### 2 648018 #### KOBY Mc[facility]onChem [address] [place] [address] UA Completeon 09-03-2018 Color (U) Yellow Normal Yellow [facility] Comment on above: Order Comment: Strai ght Cath as needed Performed By: #### 2 [id number] #### KOBY Linda[facility] [address] [place] [address] Glucose (U) [Mass/Vol] Negative Normal Negative [facility] Comment on above: Order Comment: Strai ght Cath as needed Performed By: #### 2 [id number] #### KOBY Rem[facility] [address] [place] [address] Ketones Ql (U) 1+ Abnormal Negative [facility] Comment on above: Order Comment: Strai ght Cath as needed Performed By: #### 2 [id number] #### [facility]OB[facility] [employer] [address] [place] [address] RBC (U) [#/Vol] 10-20 Abnormal 0-3 [facility] Comment on above: Order Comment: Strai ght Cath as needed Performed By: #### 2 [id number] #### [facility] [address] [place] [address] UA Blood 1+ Abnormal Negative [facility] Comment on above: Order Comment: Strai ght Cath as needed Performed By: #### 2 [id number] #### [facility] [employer] [address] [place] [address] UA Ascorbic Acid 40 mg/dL High <=19 [facility] Comment on above: Order Comment: Strai ght Cath as needed Performed By: #### 2 [id number] #### [facility] [employer] [address] [place] [address] UA Clarity SltCloudy Abnormal Clear [facility] Comment on above: Order Comment: Strai ght Cath as needed Performed By: #### 2 [id number] #### [facility]OB[facility] [employer] [address] [place] [address] UA Leuk Est 1+ Abnormal Negative [facility] Comment on above: Order Comment: Strai ght Cath as needed Performed By: #### 2 [id number] #### [facility] [employer] [address] [place] [address] UA Mucous Trace Abnormal Trace [facility] Comment on above: Order Comment: Strai ght Cath as needed Performed By: #### 2 [id number] #### [facility] [employer] [address] [place] [address] UA Nitrite Negative Normal Negative [facility] Comment on above: Order Comment: Strai ght Cath as needed Performed By: #### 2 [id number] #### KOB[facility] [employer] [address] [place] [address] UA pH 7.0 Normal 4.6-8.0 [facility] Comment on above: Order Comment: Strai ght Cath as needed Performed By: #### 2 [id number] #### [facility]OB[facility] [employer] [address] [place] [address] UA Protein Negative Normal Negative [facility] Comment on above: Order Comment: Strai ght Cath as needed Performed By: #### 2 [id number] #### [facility] [employer] [address] [place] [address] UA Spec Grav 1.015 Normal 1.003-1.030 [facility] Comment on above: Order Comment: Strai ght Cath as needed Performed By: #### 2 [id number] #### [facility] [employer] [address] [place] [address] UA Squam Epithelial 0-5 Normal 0-[address] [facility] Comment on above: Order Comment: Strai ght Cath as needed Performed By: #### 2 [id number] #### [facility] [address] [place] [address] UA Urobilinogen Negative Normal [facility] Comment on above: Order Comment: [...] within 24 hours. Performed By: #### 2 [id number] #### [facility] [address] [place] [address] UA WBC 20-50 Abnormal 0-5 [facility] Comment on above: Order Comment: Strai ght Cath as needed Performed By: #### 2 [id number] #### [facility] [address] [place] [address] Urobilinogen Qn (U) Negative Normal Negative [facility] Comment on above: Order Comment: Strai ght Cath as needed Performed By: #### 2 [id number] #### [facility] [address] [place] [address] eGFRon 09-03-2018 GFR/1.73 sq M predicted among non-blacks MDRD (S/P/Bld) [Vol rate/Area] mL/min/{1.73_m2} Normal [facility] Comment on above: Order Comment: Order added by Discern Expert. Performed By: #### 1 [id number] #### [facility] [address] [place] [address] zzplt morphon 09-03-2018 Platelet morphology finding Nom (Bld) NORMAL Normal [facility] Comment on above: Performed By: #### 9 [id number] #### KOBY RemHemo [address] [place] [address] Platelets (Bld) [#/Vol] NORMAL Normal [facility] Comment on above: Performed By: #### 9 [id number] #### KOBY RemHemo [address] [place] [address] Vital Signs Date Time Vital Sign Value Performing Clinician Facility 04-02-2023 16:00-0400 Body temperature 97.88 [degF] SUNIL GRAHAM MD [facility] 04-02-2023 16:00-0400 Diastolic Blood Pressure Non-Invasive 66 1 SUNIL GRAHAM MD [facility] 04-02-2023 16:00-0400 Heart rate 77 /min SUNIL GRAHAM MD [facility] 04-02-2023 16:00-0400 Respiratory rate 18 /min SUNIL GRAHAM MD [facility] 04-02-2023 16:00-0400 Systolic Blood Pressure Non-Invasive 110 1 SUNIL GRAHAM MD [facility] 04-02-2023 10:00-0400 Body temperature 97.7 [degF] SUNIL GRAHAM MD [facility] 04-02-2023 10:00-0400 Diastolic Blood Pressure Non-Invasive 48 1 SUNIL GRAHAM MD [facility] 04-02-2023 10:00-0400 Heart rate 81 /min SUNIL GRAHAM MD [facility] 04-02-2023 10:00-0400 Systolic Blood Pressure Non-Invasive 97 1 SUNIL GRAHAM MD [facility] 04-02-2023 00:31-0400 Body temperature 97.88 [degF] SUNIL GRAHAM MD [facility] 04-02-2023 00:31-0400 Diastolic Blood Pressure Non-Invasive 59 1 SUNIL GRAHAM MD [facility] 04-02-2023 00:31-0400 Heart rate 68 /min SUNIL GRAHAM MD [facility] 04-02-2023 00:31-0400 Reason For Taking VItal Signs SUNIL GRAHAM MD [facility] 04-02-2023 00:31-0400 Respiratory rate 16 /min SUNIL GRAHAM MD [facility] 04-02-2023 00:31-0400 Systolic Blood Pressure Non-Invasive 113 1 SUNIL GRAHAM MD [facility] 04-01-2023 16:20-0400 Reason For Taking VItal Signs SUNIL GRAHAM MD [facility] 04-01-2023 08:41-0400 Reason For Taking VItal Signs SUNIL GRAHAM MD [facility] 03-31-2023 23:30-0400 Body temperature 97.88 [degF] SUNIL GRAHAM MD [facility] 03-31-2023 15:25-0400 Body temperature 98.42 [degF] SUNIL GRAHAM MD [facility] 03-31-2023 08:36-0400 Body temperature 98.24 [degF] SUNIL GRAHAM MD [facility] 03-30-2023 07:49-0400 Body height 155 cm SUNIL GRAHAM MD [facility] 03-30-2023 07:49-0400 Body weight 78 kg SUNIL GRAHAM MD [facility] 03-30-2023 07:49-0400 Body weight 32.47 kg/m2 SUNIL GRAHAM MD [facility] 03-07-2023 20:03-0400 Body temperature 98.6 [degF] MARTINEZ NÚÑEZ MD [facility] 03-07-2023 20:03-0400 Diastolic Blood Pressure Non-Invasive 69 1 MARTINEZ NÚÑEZ MD [facility] 03-07-2023 20:03-0400 Heart rate 91 /min MARTINEZ NÚÑEZ MD [facility] 03-07-2023 20:03-0400 Respiratory rate 18 /min MARTINEZ NÚÑEZ MD [facility] 03-07-2023 20:03-0400 Systolic Blood Pressure Non-Invasive 115 1 MARTINEZ NÚÑEZ MD [facility] 03-07-2023 20:02-0400 Body height 155 cm MARTINEZ NÚÑEZ MD [facility] 03-07-2023 20:02-0400 Body weight 79.5 kg MARTINEZ NÚÑEZ MD [facility] 03-07-2023 20:02-0400 Body weight 33.09 kg/m2 MARTINEZ NÚÑEZ MD [facility] 03-06-2023 17:39-0400 Body temperature 98.06 [degF] MARTINEZ NÚÑEZ MD [facility] 03-06-2023 17:39-0400 Diastolic Blood Pressure Non-Invasive 76 1 MARTINEZ NÚÑEZ MD [facility] 03-06-2023 17:39-0400 Heart rate 125 /min MARTINEZ NÚÑEZ MD [facility] 03-06-2023 17:39-0400 Systolic Blood Pressure Non-Invasive 113 1 MARTINEZ NÚÑEZ MD [facility] 03-06-2023 17:37-0400 Body height 155 cm MARTINEZ NÚÑEZ MD [facility] 03-06-2023 17:37-0400 Body weight 79.5 kg MARTINEZ NÚÑEZ MD [facility] 03-06-2023 17:37-0400 Body weight 33.09 kg/m2 MARTINEZ NÚÑEZ MD [facility] 01-26-2023 03:20-0400 Diastolic Blood Pressure Non-Invasive 67 1 MARTINEZ NÚÑEZ MD [facility] 01-26-2023 03:20-0400 Heart rate 107 /min MARTINEZ NÚÑEZ MD [facility] 01-26-2023 03:20-0400 Systolic Blood Pressure Non-Invasive 113 1 MARTINEZ NÚÑEZ MD [facility] 01-26-2023 02:34-0400 Diastolic Blood Pressure Non-Invasive 71 1 MARTINEZ NÚÑEZ MD [facility] 01-26-2023 02:34-0400 Heart rate 95 /min MARTINEZ NÚÑEZ MD [facility] 01-26-2023 02:34-0400 Systolic Blood Pressure Non-Invasive 116 1 MARTINEZ NÚÑEZ MD [facility] 01-26-2023 02:15-0400 Body temperature 98.24 [degF] MARTINEZ NÚÑEZ MD [facility] 01-26-2023 01:46-0400 Diastolic Blood Pressure Non-Invasive 42 1 MARTINEZ NÚÑEZ MD [facility] 01-26-2023 01:46-0400 Heart rate 101 /min MARTINEZ NÚÑEZ MD [facility] 01-26-2023 01:46-0400 Systolic Blood Pressure Non-Invasive 114 1 MARTINEZ NÚÑEZ MD [facility] 01-26-2023 01:16-0400 Respiratory rate 16 /min MARTINEZ NÑÚEZ MD [facility] 01-26-2023 00:59-0400 Body height 155 cm MARTINEZ NÚÑEZ MD [facility] 01-26-2023 00:59-0400 Body weight 77.3 kg MARTINEZ NÚÑEZ MD [facility] 01-26-2023 00:59-0400 Body weight 32.17 kg/m2 MARTINEZ NÚÑEZ MD [facility] 11-18-2022 12:08-0500 Body temperature 98.24 [degF] SUNIL GRAHAM MD [facility] 11-18-2022 12:08-0500 Diastolic Blood Pressure Non-Invasive 82 1 SUNIL GRAHAM MD [facility] 11-18-2022 12:08-0500 Heart rate 108 /min SUNIL GRAHAM MD [facility] 11-18-2022 12:08-0500 Respiratory rate 18 /min SUNIL GRAHAM MD [facility] 11-18-2022 12:08-0500 Systolic Blood Pressure Non-Invasive 103 1 SUNIL GRAHAM MD [facility] 10-14-2022 11:01-0500 Body weight 80.06 kg Gretel Quintana MD Work Phone: [facility] 10-14-2022 11:01-0500 Diastolic blood pressure 56 mm[Hg] Gretel Quintana MD Work Phone: [facility] 10-14-2022 11:01-0500 Respiratory rate 18 /min Gretel Quintana MD Work Phone: [facility] 10-14-2022 11:01-0500 Systolic blood pressure 110 mm[Hg] Gretel Quintana MD Work Phone: [facility] 08-19-2022 13:06-0500 Body weight 85.5 kg Braulio Hollingsworth MD Work Phone: [facility] 08-19-2022 13:06-0500 Diastolic blood pressure 82 mm[Hg] Braulio Hollingsworth MD Work Phone: [facility] 08-19-2022 13:06-0500 Systolic blood pressure 102 mm[Hg] Braulio Hollingsworth MD Work Phone: [facility] 08-09-2022 18:09-0400 Diastolic blood pressure 74 mm[Hg] No Primary Care Physician [facility] Work Phone: 08-09-2022 18:09-0400 Heart rate 107 /min No Primary Care Physician [facility] Work Phone: 08-09-2022 18:09-0400 Respiratory rate 18 /min No Primary Care Physician [facility] Work Phone: 08-09-2022 18:09-0400 SaO2% (BldA) [Mass fraction] 94 % No Primary Care Physician [facility] Work Phone: 08-09-2022 18:09-0400 Systolic blood pressure 120 mm[Hg] No Primary Care Physician [facility] Work Phone: 08-09-2022 13:51-0400 Body height 154.94 cm No Primary Care Physician [facility] Work Phone: 08-09-2022 13:51-0400 Body mass index (BMI) [Ratio] 35.9 kg/m2 No Primary Care Physician [facility] Work Phone: 08-09-2022 13:51-0400 Body temperature 98.2 [degF] No Primary Care Physician [facility] Work Phone: 08-09-2022 13:51-0400 Body weight 86.4 kg No Primary Care Physician [facility] Work Phone: 08-04-2022 13:54-0400 Diastolic blood pressure 76 mm[Hg] Melania Mitchell MD Work Phone: [facility] 08-04-2022 13:54-0400 Heart rate 100 /min Melania Mitchell MD Work Phone: [facility] 08-04-2022 13:54-0400 Respiratory rate 16 /min Melania Mitchell MD Work Phone: [facility] 08-04-2022 13:54-0400 SaO2% (BldA) [Mass fraction] 98 % Melania Mitchell MD Work Phone: [facility] 08-04-2022 13:54-0400 Systolic blood pressure 102 mm[Hg] Melania Mitchell MD Work Phone: [facility] 08-04-2022 10:48-0400 Body height 154.9 cm Melania Mitchell MD Work Phone: [facility] 08-04-2022 10:48-0400 Body mass index (BMI) [Ratio] 30.23 kg/m2 Melania Mitchell MD Work Phone: [facility] 08-04-2022 10:48-0400 Body temperature 98.2 [degF] Melania Mitchell MD Work Phone: [facility] 08-04-2022 10:48-0400 Body weight 72.58 kg Melania Mitchell MD Work Phone: [facility] 07-08-2022 15:30-0400 Body temperature 98.2 [degF] No Primary Care Physician [facility] Work Phone: 07-08-2022 15:30-0400 Diastolic blood pressure 78 mm[Hg] No Primary Care Physician [facility] Work Phone: 07-08-2022 15:30-0400 Heart rate 89 /min No Primary Care Physician [facility] Work Phone: 07-08-2022 15:30-0400 Respiratory rate 14 /min No Primary Care Physician [facility] Work Phone: 07-08-2022 15:30-0400 SaO2% (BldA) [Mass fraction] 98 % No Primary Care Physician [facility] Work Phone: 07-08-2022 15:30-0400 Systolic blood pressure 124 mm[Hg] No Primary Care Physician [facility] Work Phone: 06-30-2022 00:36-0400 Diastolic blood pressure 76 mm[Hg] No Primary Care Physician [facility] Work Phone: 06-30-2022 00:36-0400 Heart rate 79 /min No Primary Care Physician [facility] Work Phone: 06-30-2022 00:36-0400 Respiratory rate 16 /min No Primary Care Physician [facility] Work Phone: 06-30-2022 00:36-0400 SaO2% (BldA) [Mass fraction] 96 % No Primary Care Physician [facility] Work Phone: 06-30-2022 00:36-0400 Systolic blood pressure 113 mm[Hg] No Primary Care Physician [facility] Work Phone: 06-29-2022 23:48-0400 Body temperature 98.9 [degF] No Primary Care Physician [facility] Work Phone: 06-29-2022 18:00-0400 Body mass index (BMI) [Ratio] 33 kg/m2 No Primary Care Physician [facility] Work Phone: 06-29-2022 18:00-0400 Body weight 79.37 kg No Primary Care Physician [facility] Work Phone: Encounters Encounter Date Encounter Type Care Provider Facility Start: 08-01-2025 ambulatory No Primary Care Physici an Facility:[facility] Start: 07-09-2025 End: 07-09-2025 ambulatory No Primary Care Physician Facility:[facility] Start: 07-09-2025 End: 07-09-2025 ambulatory No Primary Care Physician Facility:[facility] Start: 07-03-2025 End: 07-03-2025 ambulatory No Primary Care Physician Facility:[facility] Start: 07-03-2025 End: 07-03-2025 ambulatory No Primary Care Physician Facility:[facility] Start: 06-26-2025 End: 06-26-2025 ambulatory RAMA Dinesh [facility] Start: 06-20-2025 End: 06-20-2025 ambulatory [facility] Start: 06-06-2025 End: 06-06-2025 ambulatory Rama Stuart Facility:[facility] Start: 05-30-2025 End: 05-30-2025 ambulatory No Primary Care Physician Facility:[facility] Start: 05-30-2025 End: 05-30-2025 ambulatory Rama Stuart Facility:[facility] Start: 05-14-2025 End: 05-14-2025 ambulatory Rama Stuart Facility:[facility] Start: 05-14-2025 End: 05-14-2025 ambulatory No Primary Care Physician Facility:[facility] Start: 05-07-2025 End: 05-07-2025 ambulatory No Primary Care Physician Facility:[facility] Start: 05-07-2025 End: 05-07-2025 ambulatory No Primary Care Physician Facility:[facility] Start: 04-09-2025 End: 04-09-2025 ambulatory No Primary Care Physician Facility:[facility] Start: 04-09-2025 End: 04-09-2025 ambulatory Remedios Jose [employer] Facility:[facility] Start: 03-15-2025 End: 03-15-2025 ambulatory Remedios Jose [employer] Facility:[facility] Start: 03-13-2025 End: 03-13-2025 ambulatory No Primary Care Physician Facility:[facility] Start: 03-13-2025 End: 03-13-2025 ambulatory Remedios [place] [employer] Facility:[facility] Start: 01-02-2025 End: 01-02-2025 Emergency department patient visit Mendez Gardner Facility:[facility] Start: 08-03-2024 End: 08-18-2024 ambulatory [facility] Facility:[facility] Start: 08-03-2024 End: 08-18-2024 Physical therapy management [facility] Start: 02-18-2024 End: 02-19-2024 ambulatory [facility]EN [facility] Facility[facility] Start: 02-18-2024 End: 02-18-2024 Patient encounter procedure [facility]EN [facility] Start: 10-15-2023 End: 10-16-2023 ambulatory OSMAN TORRES PMHNP-BC Facility:[facility] Start: 10-15-2023 End: 10-15-2023 Patient encounter procedure OSMAN TORRES PMHNP-BC [facility] Start: 03-30-2023 End: 04-02-2023 Evaluation and management of inpatient MARTINEZ NÚÑEZ MD Facility:[facility] Start: 03-30-2023 End: 04-02-2023 Evaluation and management of inpatient SUNIL GRAHAM MD [facility] Start: 03-18-2023 End: 03-18-2023 ambulatory MARTINEZ NÚÑEZ MD Facility:[facility] Start: 03-15-2023 End: 03-16-2023 ambulatory SUNIL GRAHAM MD Facility:[facility] Start: 03-15-2023 End: 03-15-2023 Patient encounter procedure SUNIL GRAHAM MD [facility] Start: 03-09-2023 End: 03-14-2023 ambulatory LONG DICKERSON MD Facility:[facility] Start: 03-09-2023 End: 03-10-2023 ambulatory LONG DICKERSON MD Facility:[facility] Start: 03-09-2023 End: 03-13-2023 Outreach Lab LONG DICKERSON MD [facility] Start: 03-09-2023 End: 03-09-2023 Patient encounter procedure LONG DICKERSON MD [facility] Start: 03-07-2023 End: 03-07-2023 ambulatory MARTINEZ NÚÑEZ MD Facility:[facility] Start: 03-07-2023 End: 03-07-2023 SAME DAY STAY MARTINEZ NÚÑEZ MD [facility] Start: 03-06-2023 End: 03-06-2023 ambulatory MARTINEZ NÚÑEZ MD Facility:[facility] Start: 03-06-2023 End: 03-06-2023 SAME DAY STAY MARTINEZ NÚÑEZ MD [facility] Start: 01-26-2023 End: 01-26-2023 SAME DAY STAY MARTINEZ NÚÑEZ MD [facility] Start: 01-25-2023 End: 01-25-2023 Patient encounter procedure SUNIL GRAHAM MD [facility] Start: 01-19-2023 End: 01-19-2023 Patient encounter procedure SUNIL GRAHAM MD [facility] Start: 01-05-2023 End: 01-05-2023 Patient encounter procedure SUNIL GRAHAM MD [facility] Start: 12-03-2022 Refill Tad kirk DO Work Phone: [facility] Comment on above: Med Change Request Start: 11-18-2022 End: 11-18-2022 SAME DAY STAY SUNIL GRAHAM MD [facility] Start: 11-13-2022 End: 11-13-2022 Patient encounter procedure 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 [facility] Start: 10-29-2022 End: 10-29-2022 ambulatory CHEKO MCCLELLAND Facility:[facility] Start: 10-14-2022 End: 10-14-2022 ambulatory GRETEL QUINTANA Facility:[facility] Start: 10-14-2022 End: 10-14-2022 Patient encounter procedure Gretel Quintana MD Work Phone: Obstetrics/Gynecolog y Comment on above: Encounter for superv ision of normal first in second trimester (Primary Dx); Need for influenza vaccination; 15 weeks gestation of Start: 09-21-2022 End: 09-21-2022 ambulatory FLORENCE HEWITT Facility:[facility] Start: 09-17-2022 End: 09-17-2022 ambulatory BRAULIO HOLLINGSWORTH Facility:[facility] Start: 08-21-2022 ambulatory Braulio Hollingsworth MD Work Phone: Obstetrics/Gynecolog y Comment on above: Luz oliveira Start: 08-19-2022 End: 08-19-2022 ambulatory BRAULIO HOLLINGSWORTH Facility:[facility] Start: 08-19-2022 End: 08-19-2022 Patient encounter procedure Braulio Hollingsworth MD Work Phone: Obstetrics/Gynecolog y Comment on above: Encounter for superv ision of normal first in first trimester (Primary Dx) with uncer tain dates in first trimester (Primary Dx) Start: 08-14-2022 End: 08-14-2022 ambulatory TANESHA FRANKLINLex Facility:[facility] Start: 08-10-2022 Telephone encounter Braulio connolly MD Work Phone: Obstetrics/Gynecolog y Comment on above: Patient Update Start: 08-09-2022 End: 08-09-2022 Emergency department patient visit No Primary Care Physician [facility] Start: 08-04-2022 End: 08-04-2022 Emergency department patient visit [facility] Start: 08-04-2022 End: 08-04-2022 Emergency department patient visit Melania Mitchell MD Work Phone: [facility] Comment on above: Threatened miscarria ge in early (Primary Dx) Start: 07-20-2022 End: 07-20-2022 ambulatory No Primary Care Physician [facility] Work Phone: Start: 07-20-2022 End: 07-20-2022 Discharged Recurring No Primary Care Physician [facility] Start: 07-20-2022 Registered Recurring No Primary Care Physician [facility] Start: 07-09-2022 Telephone encounter Ledy wang MD Work Phone: [facility] Comment on above: Missed Appointment ( #1 No Show, #1 Letter) Start: 07-08-2022 End: 07-08-2022 Patient encounter procedure No Primary Care Physician [facility] Start: 06-29-2022 End: 06-30-2022 Emergency department patient visit No Primary Care Physician [facility] Start: 05-31-2022 End: 05-31-2022 Emergency department patient visit HIWOT HUDSON Facility:[facility] Start: 12-31-2021 End: 12-31-2021 Emergency department patient visit JAYDE YEAGER Facility:[facility] Start: 01-27-2021 End: 01-27-2021 ambulatory Alex [phone] Lynsey [phone] Facility:[facility] Start: 12-25-2018 Patient encounter procedure [...] Speci men Type: BLOOD SPECIMEN Ordering Facility: [facility] Address: [address] [place], [place] [id number] Performed By: #### T SPN #### [facility] [id number] [address] [place] [address] [place] Start: 08-19-2022 Antibody [...] Speci men Type: BLOOD SPECIMEN Ordering Facility: [facility] Address: [place] [address] Performed By: #### T SPN #### [facility] CLIA [id number] [address] [place] [address] [place] Start: 08-09-2022 Transvaginal [...] of wisdom tooth (body structure) 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 Plan of Treatment Date Care Activity Detail Author Start: 08-19-2025 PAP TESTING PAP TESTING [facility] Start: 05-14-2024 PAP TESTING PAP TESTING [facility] Start: 08-19-2023 CHLAMYDIA SCREENING (18-24) CHLAMYDIA SCREENING (18-24) [facility] Start: 08-19-2023 GC (GONORRHEA) SCREE SAADIA (18-24) GC (GONORRHEA) SCREENING (18-24) [facility] Start: 10-14-2022 End: 10-14-2023 OBSTETRIC ULTRASOUND WHI OBSTETRIC ULTRASOUND WHI Anc Imaging Routine Encounter for supervision of normal first in second trimester Expected: 10/14/2022, Expires: 10/14/2023 [facility] Work Phone: Comment on above: Expected: 10/14/2022 , Expires: 10/14/2023 Start: 10-11-2022 DEPRESSION ASSESSMENT DEPRESSION ASS ESSMENT [facility] Start: 08-19-2022 End: 10-19-2022 Hepatitis B virus surface Ab [Presence] in Serum by Immunoassay [facility] Work Phone: Comment on above: Expected: 08/19/2022 , Expires: 10/19/2022 Start: 08-19-2022 End: 10-19-2022 Hepatitis C virus Ab [Presence] in Serum [facility] Work Phone: Comment on above: Expected: 08/19/2022 , Expires: 10/19/2022 Start: 08-19-2022 End: 10-19-2022 HIV 1+2 Ab [Presence] in Serum or Plasma by Immunoassay [facility] Work Phone: Comment on above: Expected: 08/19/2022 , Expires: 10/19/2022 Start: 08-19-2022 End: 08-19-2023 NUCHAL TRANSLUCENCY WHI NUCHAL TRANSLUCENCY WHI Anc Imaging Routine Encounter for supervision of normal first in first trimester Expected: 08/19/2022, Expires: 08/19/2023 [facility] Work Phone: Comment on above: Expected: 08/19/2022 , Expires: 08/19/2023 Start: 08-19-2022 End: 10-19-2022 RUBELLA IGG AB [facility] Work Phone: Comment on above: Expected: 08/19/2022 , Expires: 10/19/2022 Start: 08-19-2022 End: 10-19-2022 SYPHILIS TOTAL W/REFLEX [facility] Work Phone: Comment on above: Expected: 08/19/2022 , Expires: 10/19/2022 Start: 07-08-2022 Patient referral [facility] Work Phone: Start: 06-11-2022 Influenza vaccination INFLUENZA (#1) [facility] Start: 05-14-2022 CHLAMYDIA SCREENING (18-24) CHLAMYDIA SCREENING (18-24) [facility] Start: 05-14-2022 GC (GONORRHEA) SCRELily SAADIA (18-24) GC (GONORRHEA) SCREENING (18-24) [facility] Start: 05-11-2022 Influenza vaccination Flu vaccine (# 1) [facility] Start: 05-07-2022 Urine microalbumin profile DTAP,TDAP,TD (7 - Td or Tdap) [facility] Start: 10-11-2021 DEPRESSION ASSESSMENT DEPRESSION ASS ESSMENT [facility] Start: 05-17-2021 COVID-19 VACCINE (3 - Booster for Pfizer series) COVID-19 VACCINE (3 - Booster for Pfizer series) [facility] Start: 2020 Screening for malign ant neoplasm of cervix Pap smear [facility] Start: 2018 DTaP/Tdap/Td vaccine (1 - Tdap) DTaP/Tdap/Td vaccine (1 - Tdap) [facility] Start: 2017 HEPATITIS C SCREENING HEPATITIS C SC REENING [facility] Start: 2017 Hepatitis C screening Hepatitis C sc reen [facility] Start: 2017 HIV SCREENING HIV SCREENING [facility] Start: 2015 Screening for Chlamy jarod trachomatis Chlamydia/GC screen [facility] Start: 2014 HIV screening HIV screen [facility] Start: 2013 PEDS TO ADULT TRANSI TION ANNUAL ASSESSMENT PEDS TO ADULT TRANSITION ANNUAL ASSESSMENT [facility] Start: 2011 Depression Screen Depression Screen [facility] Start: 2011 PEDS TO ADULT TRANSI TION INITIAL DISCUSSION PEDS TO ADULT TRANSITION INITIAL DISCUSSION [facility] Start: 2010 HPV vaccine (1 - 2-d ose series) HPV vaccine (1 - 2-dose series) [facility] Start: 2009 MENINGOCOCCAL B: Consider based on risk (1 of 2 - Risk Bexsero 2-dose series) MENINGOCOCCAL B: Consider based on risk (1 of 2 - Risk Bexsero 2-dose series) [facility] Start: 2000 Varicella vaccine (1 of 2 - 2-dose childhood series) Varicella vaccine (1 of 2 - 2-dose childhood series) [facility] Start: 04-09-2000 COVID-19 VACCINE (#1) COVID-19 VACCI NE (#1) [facility] Bacteria identified in Urine by Culture URINE CULTURE Microbiology Routine Encounter for supervision of normal first in first trimester 08/19/2022 2:08 PM [facility] Work Phone: Chlamydia trachomatis+Neisseria gonorrhoeae DNA [Presence] in Unspecified specimen by CHICHO with probe detection GC/CHLAMYDIA DNA DET Lab Routine Encounter for supervision of normal first in first trimester 08/19/2022 2:13 PM [facility] Work Phone: PAP FLUID CERVICAL SCREENING PAP FLUID CERVICAL SCREENING Lab Routine Encounter for supervision of normal first in first trimester Ordered: 08/19/2022 [facility] Work Phone: Comment on above: Ordered: 08/19/2022 Patient Education [facility] Work Phone: Patient referral [facility] Work Phone: [facility] Immunizations Immunization Date Immunization Notes Care Provider Fa [facility] 08-24-2023 tetanus toxoid, redu ibis diphtheria toxoid, and acellular pertussis vaccine, adsorbed [facility]EN [facility] 02-01-2023 tetanus toxoid, redu ibis diphtheria toxoid, and acellular pertussis vaccine, adsorbed; Translations: [Boostrix (Tdap)] MARTINEZ NÚÑEZ MD [facility] Comment on above: Result Comment: [facility]- [id number] 10-14-2022 influenza virus vacc ine, unspecified formulation [facility] 10-14-2022 influenza, injectabl e, quadrivalent, contains preservative Gretel Quintana MD Work Phone: [facility] 03-22-2021 SARS-CoV-2 mRNA (tozinameran) vaccine K[facility]EN [facility] 03-01-2021 SARS-CoV-2 mRNA (tozinameran) vaccine [facility]EN [facility] 09-20-2020 influenza virus vacc ine, unspecified formulation [facility] 09-08-2019 influenza virus vacc ine, unspecified formulation [facility] 03-02-2018 varicella virus vaccine [facility] 07-26-2017 influenza virus vacc ine, unspecified formulation [facility] 05-11-2017 meningococcal polysaccharide (groups A, C, Y and W-135) diphtheria toxoid conjugate vaccine (MCV4P) [facility] 02-24-2016 meningococcal polysaccharide (groups A, C, Y and W-135) diphtheria toxoid conjugate vaccine (MCV4P) Ledy Vaughn MD Work Phone: [facility] 07-05-2014 influenza virus vacc ine, unspecified formulation [facility] 07-05-2014 influenza, injectabl e, quadrivalent, preservative free Ledy Vaughn MD Work Phone: [facility] Work Phone: 02-20-2014 human papilloma viru s vaccine, quadrivalent Ledy Vaughn MD Work Phone: [facility] 02-20-2014 Human Papillomavirus Quadval [facility] [place] 05-18-2013 human papilloma viru s vaccine, quadrivalent Ledy Vaughn MD Work Phone: [facility] Work Phone: 05-07-2012 human papilloma viru s vaccine, quadrivalent Ledy Vaughn MD Work Phone: [facility] 05-07-2012 Meningococcal, MCV4, unspecified conjugate formulation(groups A, C, Y and W-135) Ledy Vaughn MD Work Phone: [facility] 05-07-2012 tetanus toxoid, redu ibis diphtheria toxoid, and acellular pertussis vaccine, adsorbed Ledy Vaughn MD Work Phone: [facility] 05-07-2012 varicella virus vaccine Chayo Harris MD Work Phone: [facility] 01-09-2005 diphtheria, tetanus toxoids and acellular pertussis vaccine Ledy Vaughn MD Work Phone: [facility] 01-09-2005 measles, mumps and rubella virus vaccine Ledy Vaughn MD Work Phone: [facility] 01-09-2005 poliovirus vaccine, inactivated Ledy Vaughn MD Work Phone: [facility] 04-26-2001 pneumococcal conjuga te vaccine, 7 valent Ledy Vaughn MD Work Phone: [facility] 02-17-2001 diphtheria, tetanus toxoids and acellular pertussis vaccine Ledy Vaughn MD Work Phone: [facility] Work Phone: 02-17-2001 haemophilus influenz ae type b vaccine, HbOC conjugate Ledy Vaughn MD Work Phone: [facility] Work Phone: 02-17-2001 pneumococcal conjuga te vaccine, 7 valent Ledy Vaughn MD Work Phone: [facility] 11-03-2000 measles, mumps and rubella virus vaccine Ledy Vaughn MD Work Phone: [facility] Work Phone: 11-03-2000 measles/mumps/rubell a virus vaccine KIRSTEN CISNEROS [facility] 11-03-2000 varicella virus vaccine Chayo Harris MD Work Phone: [facility] Work Phone: 05-05-2000 diphtheria, tetanus toxoids and acellular pertussis vaccine Ledy Vaughn MD Work Phone: [facility] Work Phone: 05-05-2000 haemophilus influenz ae type b vaccine, HbOC conjugate Ledy Vaughn MD Work Phone: [facility] Work Phone: 05-05-2000 hepatitis B vaccine, pediatric or pediatric/adolescent dosage Ledy Vaughn MD Work Phone: [facility] Work Phone: 05-05-2000 poliovirus vaccine, inactivated Ledy Vaughn MD Work Phone: [facility] Work Phone: 03-03-2000 diphtheria, tetanus toxoids and acellular pertussis vaccine Ledy Vaughn MD Work Phone: [facility] Work Phone: 03-03-2000 haemophilus influenz ae type b vaccine, HbOC conjugate Ledy Vaughn MD Work Phone: [facility] Work Phone: 03-03-2000 poliovirus vaccine, inactivated Ledy Vaughn MD Work Phone: [facility] Work Phone: 1999 diphtheria, tetanus toxoids and acellular pertussis vaccine Ledy Vaughn MD Work Phone: [facility] Work Phone: 1999 haemophilus influenz ae type b vaccine, HbOC conjugate Ledy Vaughn MD Work Phone: [facility] Work Phone: 1999 hepatitis B vaccine, pediatric or pediatric/adolescent dosage Ledy Vaughn MD Work Phone: [facility] Work Phone: 1999 poliovirus vaccine, inactivated Ledy Vaughn MD Work Phone: [facility] Work Phone: 1999 hepatitis B pediatri c vaccine KIRSTEN BLAYNE [facility] 1999 hepatitis B vaccine, pediatric or pediatric/adolescent dosage Ledy Vaughn MD Work Phone: [facility] Work Phone: Payers Date Payer Category Payer Self-pay [id number] 2025 Unknown [id number] 2023 Unknown [id number] 2021 Unknown [id number] 2021 Unknown [id number] 2021 Unknown [id number] 1999 Unknown [id number] 2.16. 840.1.715504.3.579.2.356 1999 Unknown [id number] 2.16. 840.1.164371.3.579.2.356 1999 Unknown [id number] 2.16.8 40.1.238806.3.579.2.419 1999 Unknown [id number] 2.16. 840.1.162713.3.579.2.668 1999 Unknown [id number] 2.16.8 40.1.154078.3.579.2.627 1999 Unknown [id number] 2.16.8 40.1.335798.3.579.2.627 1999 Unknown [id number] 2.16.8 40.1.543799.3.579.2.627 1999 Unknown [id number] 2.16.8 40.1.523954.3.579.2.627 1999 Unknown [id number] 2.16.8 40.1.636051.3.579.2.627 1999 Unknown [id number] 2.16.8 40.1.015833.3.579.2.627 1999 Unknown [id number] 2.16.8 40.1.914033.3.579.2.627 1999 Unknown [id number] 2.16.8 40.1.992282.3.579.2.627 1999 Unknown [id number] 2.16.8 40.1.692622.3.579.2.627 1999 Unknown [id number] 2.16.8 40.1.490078.3.579.2.627 1999 Unknown [id number] 2.16. 840.1.860862.3.579.2.479 1999 Unknown [id number] 2.16 840.1.528496.3.579.2479 1999 Unknown [id number] 2.16 840.1.476891.3.579.2479 Unknown [id number] Unknown [facility] [id number] Unknown [facility] [id number] Unknown [facility] [id number] Unknown [id number] 2.16.8 40.1.036850.3.579.2.462 Unknown [id number] 2.16.8 40.1.349865.3.579.2.462 Unknown [id number] 2.16.8 40.1.903714.3.579.2.462 Unknown [id number] 2.16.8 40.1.383655.3.579.2.462 Unknown [id number] 2.16.8 40.1.428469.3.579.2.462 Unknown [id number] 2.16.8 40.1.381723.3.579.2.462 Unknown [id number] 2.16.8 40.1.221447.3.579.2.462 Unknown [id number] 2.16.8 40.1.486724.3.579.2.462 Unknown [id number] 2.16.8 40.1.740830.3.579.2.462 Unknown [id number] 2.16.8 40.1.019438.3.579.2.462 Unknown [id number] 2.16.8 40.1.648669.3.579.2.462 Unknown [id number] 2.16.8 40.1.658720.3.579.2.462 Unknown [id number] 2.16.8 40.1.121964.3.579.2.462 Unknown [id number] 2.16.8 40.1.475948.3.579.2.462 Unknown [id number] 2.16.8 40.1.388645.3.579.2.462 Unknown [id number] 2.16.8 40.1.085510.3.579.2.462 Unknown [id number] 2.16.8 40.1.602514.3.579.2.462 Unknown [id number] 2.16.8 40.1.942936.3.579.2.462 Unknown [id number] 2.16.8 40.1.973215.3.579.2.462 Social History Date Type Detail Facility Start: 12-31-2021 End: 07-28-2024 Tobacco smoking status NHIS Never smoked tobacco [facility] Start: 12-31-2021 End: 08-19-2022 Tobacco use and exposure Smokeless tobacco non-user [facility] Start: 12-31-2021 End: 10-14-2022 Alcohol intake Ex-drinker (finding) [facility] Start: 06-27-2013 End: 08-19-2022 Tobacco Comment dad smokes outside [facility] Start: 2000 Sex Assigned At Female C [facility] Start: 06-28-2022 End: 08-19-2022 Exposure to SARS-CoV-2 (event) Not sure [facility] Start: 2000 Sex Assigned At Not on file [employer] Work Phone: Start: 08-09-2022 End: 08-09-2022 Tobacco smoking status NHIS Unknown if ever smoked [facility] Work Phone: Start: 10-24-2020 Spouse/ Signif icant Other [facility] Work Phone: Start: 07-12-2022 [facility] Goals Date Patient Goal Desired Activity /State [...] bilat biceps and triceps [facility] [place] 04-02-2023 Functional Status Rooming in [facility] 04-01-2023 Functional Status [facility] 04-01-2023 Functional Status Independent [facility] 04-01-2023 Functional Status [facility] 03-30-2023 Functional Status Home independently [facility]3] 03-07-2023 Functional Status Ambulating in room [facility]3] Mental Status Date Assessment Result Facility 03-07-2023 Mental Status Orientation Oriented x 4 [facility] Clinical Notes 07-09-2022 to 02-18-2024 Laboratory [...] Date: 02/19/2024 1:39:46 AM Ordering Provider: KIRSTEN CISNERSO [facility] 10-15-2023 Evaluation + Plan note Diagnostic Tests PendingVitamin B12 Level 10/15/23Folate Level 10/15/23 Future Scheduled TestsGlucose Level 07/20/23Lipid Profile 07/20/23 [facility] 04-02-2023 Evaluation + Plan note Extrac barbara from: Title:Clinical Document Author:LONG DICKERSON MD Date:04/02/23 Subjective Comfortable with oral Motrin Lochia small. Baby is eating well per bottle Stayed overnight due to elevated bili levels in baby Objective Looks very well. Independent in room. Abdomen: Soft, uterus firm at U- 2 Extremities: Nontender with 1+ edema VITALS ReyueuDmyzLZJaqyoQXSxQ4JLG3RqhiGb(kg) 04/02 00:3136.6--782970--81/20 78.0 04/01 16:2036.5--7916---- 04/01 08:4136.1--8114---- 03/31 23:3036.6--8416---- [...] q6h, 03/30/23 19:48:00 EDT Problems (4) Anxiety ([id number]) Body mass index 30+ - obesity (973413398) (759777776) UTI (urinary tract infection) ([id number]) ASSESSMENT/PLAN: PPD #2 after . Doing very well. Home today. Extracted from: Title:Clinical Document Author:LONG DICKERSON MD Date:03/31/23 Subjective Comfortable with oral Motrin Lochia small. Baby is nursing well. . Objective Looks very well. Independent in room. 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 SOCIAL HISTORY: . Denies tobacco use Denies alcohol use. No illicit drug use. PHYSICAL EXAM: VITALS: JjgeqtVogcRNMzaohLMDdX5JVY4PcgzYz(kg) 03/30 10:5735.6--7518----03/30 78.0 03/30 10:0535.9 03/30 09:0536.1 [...] Date:04/20/2023 02:00:00 PM Scheduled Provider:SUNIL GRAHAM MD Location:[facility] Appointment Type:[facility] 06-22-2023 Note day #2 progress note: [...] MARTINEZ NÚÑEZ MD on 04/01/2023 09:01 AM [facility]06-21-2023 Hospital Discharge instructions Patient Education 03/31/2023 [...] work with your health care provider or csm consultant. If you are not : ?Avoid [...] about methods of control (contraception). Medicines Take irvv-vbd-cxkxmqb and prescription medicines only as told by [...] 07/24/2008 Document Revised: 09/30/2018 Document Reviewed: 07/11/2018 [employer] Patient Education 2020 [employer]. 03/31/2023 12:34:52 7b- Depression and Blues (07/2020) [...] psychosis. Often, a screening tool called the [place] Depression Scale is used to diagnose depression [...] music. Avoid alcohol. 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 Do nottry to do everything. Talk to people close to you about how you are feeling. Get support from your partner, family members, and friends. Try to stay positive in how you think. Think about the things you are grateful for. Do not spend a lot of time alone. Only take edqk-ycs-dthfnfv or prescription medicine as directed by your [...] not doing well or get worse. Resource: [facility] Patient Information 2015 [facility]. This information is not intended to replace advicegiven to you by your health care provider. Make sure you discuss any questions you have with your health care provider. Follow Up Care 03/30/2023 06:39:24 With:LONG DICKERSON Address: [address] [place] [address] [place] [address]- [phone] Business (1) When: Unknown [facility] 06-21-2023 Note Date of Service 03/31/23 Chief Complaint Subjective 22 [facility] Doing well. [...] 1 herlinda, Perineum, AsDirected benzocaine topical 20% Mcintosh 1 spray(s), Perineum, q1h bisacodyl 10 mg [...] SUNIL GRAHAM MD on 03/31/2023 11:37 AM [facility]06-21-2023 Anesthesiology Consult note Patient: LUZ OLIVEIRA Age: 22 years Sex: Female : 2000 Associated Diagnoses: None Author: JENNIFER MERA BOAT PILOT-BARNWORKER GROOM Assessment Postanesthesia assessment Vitals: Vital signs from flowsheet : Vital Signs 03/31/2023 5:49 EDT Temperature Temporal Artery 36 DegC Heart Rate Monitored 82 bpm Respiratory Rate 16 br/min Systolic Blood Pressure Non-Invasive 109 mmHg Diastolic Blood Pressure Non-Invasive 54 mmHg [facility] 03/30/2023 20:15 EDT Heart Rate Monitored [...] mmHg Diastolic Blood Pressure Non-Invasive 94 mmHg [place] 03/30/2023 18:56 EDT Heart Rate Monitored 98 [...] by JENNIFER MERA on 03/31/2023 06:15 AM [facility]06-20-2023 Note Patient seen at 1730 and [...] LONG DICKERSON MD on 03/30/2023 05:30 PM [facility]20[facility]2023 Note Patient seen at 1730 and [...] LONG DICKERSON MD on 03/30/2023 05:30 PM [facility]06-20-2023 Note Patient seen at 1730 and [...] LONG DICKERSON MD on 03/30/2023 05:30 PM [facility]06-20-2023 Note CHIEF COMPLAINT: Membranes ruptured with [...] SYSTEMS: All negative ACTIVE PROBLEMS: (4) Anxiety ([id number]) Body mass index 30+ - obesity ([id number]) (205544609) UTI (urinary tract infection) ([id number]) ALLERGIES: (1) CeleXA FAMILY HISTORY: No inheritable diseases. SOCIAL HISTORY: . Denies tobacco use Denies alcohol use. No illicit drug use. PHYSICAL EXAM: VITALS: QrpfzvSnkhWKKzcbuRKOrG0WOV7MxjfLy(kg) 03/30 10:5735.6--7518----03/30 78.0 03/30 10:0535.9 03/30 09:0536.1 [...] LONG DICKERSON MD on 04/02/2023 11:08 AM [facility]06-20-2023 Anesthesiology Consult note Patient: LUZ OLIVEIRA Age: 22 years Sex: Female : 2000 Associated Diagnoses: None Author: JENNIFER MERA BOAT P[employer]-BARNWORKER GROOM Preoperative Information laboring Anesthesia history Patient's history: [...] Problem list: Medical Anxiety / SNOMED CT [id number] / Confirmed Body mass index 30+ - obesity / SNOMED CT [id number] / Confirmed / SNOMED CT 463376954 / Confirmed UTI (urinary tract infection) / SNOMED CT [id number] / Confirmed, Active Problems (4) Anxiety Body mass index 30+ - obesity UTI (urinary tract infection) Histories Past Medical History: Active Anxiety ([id number]) UTI (urinary tract infection) ([id number]) Family History: Cancer Grandparent Comments: 10/22/2022 14:27 AUGIE Navarro Poonam Sanchez [facility] NURSE maternal, brain Cardiac pacemaker Mother Diabetes mellitus Mother Asthma Grandparent Breast cancer Grandparent Heart disease Mother HTN - Hypertension Father COPD Grandparent Diabetes Grandparent Procedure history: Woodland tooth ([id number]). Social History Social & Psychosocial Habits Alcohol [...] Signs(last 24 hrs) Last Charted Heart Rate Cbmkopflb85 bpm (MAR 30 10:57) Resp Rate 18 br/min (MAR 30 10:57) ASQ096 mmHg (MAR 30 10:57) DBPL 59mmHg (MAR 30 10:57) BMI32.47 (MAR 30 07:49) Measurements from flowsheet : Measurements 03/30/2023 7:49 EDT Height 155.0 cm Admission Weight 78 kg Hunter Body Weight 47.85 kg BSA Admission 1.77 [...] Height 155.0 cm Admission Weight 78 kg Hunter Body Weight 47.85 kg BSA Admission 1.77 [...] Baby For Adoption No Surrogate No Discharge Carpenter Physician P [facility] Participant No Safe Sleep Environment for Baby [...] Teaching Evaluation Refused information Preferred Written Language Cymro Preferred Spoken Language Cymro Chief Complaint SROM Mode of Arrival Ambulatory Information Given by Patient Patient's Current Physicians Dr Graham Emergency Contact Number Luis Daniel Oliveira [phone] Belongings At Bedside Cell phone, Safety Admin Assistant Personal Home Medications Received No home medications [...] Category: Category One 03/30/2023 7:14 [facility] and Physical History and Physical . Assessment and Plan [place] [employer] Anesthesiologists (ASA) physical status classification: Class II. Anesthetic Preoperative Plan Anesthetic technique: Epidural. Informed consent: signed by patient. Digitally Signed by JENNIFER MERA on 03/30/2023 01:37 PM [facility]06-20-2023 Note Date of Service 03/30/23 Chief Complaint SROM History of Present Illness 22 yo G1@39.2 presents with large gush of fluid around 0600 and regular contractions. c/bobesity and recent growth US AC 7%le overall 15%le. Noted blood tinged fluid. Growth at 37 weeks for obesity showed borderline low fluid 5 cm, growth in 15%le. 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 history: Menarche: Menses: Menopause: n/a HRT: n/a [...] of breast bx: no Colonoscopy: DXA: Family 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 history: Breast/colon/ovarian/uterine cancer: MGM w breast ca [...] infection) Historical No qualifying data Procedure/Surgical History Woodland tooth Medications Home Medications (5) Active AD [...] SUNIL GRAHAM MD on 03/30/2023 07:30 AM [facility]05-28-2023 Hospital Discharge instructions Patient Education 03/07/2023 20:26:05 7 - Labor and Delivery Outpatient Instructions (CUSTOM) [facility]IV[facility] OUTPATIENT HOME-GOING INSTRUCTIONS _X_ [...] crackers, bananas, Jell-O, cooked carrots, applesauce. ___ Chambers diet. Avoid caffeine, chocolate, alcohol, spiced/greasy foods. [...] the nearest Emergency Room for assistance. Form [id number] D: 09/18 Document Released: 09/27/2006 Document Revised: 09/15/2012 Document Reviewed: 09/27/2006 ExitCare Patient Information 2012 [email or web address]. Follow Up Care 03/07/2023 19:56:20 With:WILTON AN, MARTINEZ Bautista Address: [address] [place] [address] [place] [address] [phone] When:03/09/2023 [facility] 05-27-2023 Hospital Discharge instructions Patient Education 03/06/2023 18:27:44 7 - Labor and Delivery Outpatient Instructions (CUSTOM) [facility]IV[facility] OUTPATIENT HOME-GOING INSTRUCTIONS _X_ [...] crackers, bananas, Jell-O, cooked carrots, applesauce. ___ Chambers diet. Avoid caffeine, chocolate, alcohol, spiced/greasy foods. [...] the nearest Emergency Room for assistance. Form [id number] D: 09/18 Document Released: 09/27/2006 Document Revised: 09/15/2012 Document Reviewed: 09/27/2006 ExitCare Patient Information 2011 [email or web address]. [facility] 04-18-2023 Hospital Discharge instructions Patient Education 01/26/2023 03:27:22 7 - Labor and Delivery Outpatient Instructions (CUSTOM) [facility] DELIVERY OUTPATIENT HOME-GOING INSTRUCTIONS _X_ [...] crackers, bananas, Jell-O, cooked carrots, applesauce. ___ Chambers diet. Avoid caffeine, chocolate, alcohol, spiced/greasy foods. [...] the nearest Emergency Room for assistance. Form [id number] D: 09/18 Document Released: 09/27/2006 Document Revised: 09/15/2012 Document Reviewed: 09/27/2006 ExitCare Patient Information 2012 [email or web address]. Follow Up Care 01/26/2023 00:53:10 With:Follow up with primary care provider Address:Unknown When: Unknown [facility] 02-25-2023 Miscellaneous Notes* Telephone Encounter - Alex Gracia DO - 12/05/2022 5:08 PM EST Not a CFM patient [facility] Hospital Discharge instructions Patient Education 11/18/2022 13:18:57 [...] crackers, bananas, Jell-O, cooked carrots, applesauce. ___ Chambers diet. Avoid caffeine, chocolate, alcohol, spiced/greasy foods. [...] the nearest Emergency Room for assistance. Form [id number] D: 09/18 Document Released: 09/27/2006 Document Revised: 09/15/2012 Document Reviewed: 09/27/2006 ExitCare Patient Information 2012 [email or web address]. Follow Up Care 11/18/2022 11:50:05 With:SUNIL GRAHAM Address: [address] [place] [address] [place] [address] [phone] Business (1) When: Unknown [facility] 01-19-2023 NoteHNO ID: [id number] Author: Tad Shaw DO Service: Obstetrics Author [...] with plan. Tad Shaw DO 4:21 AM 10/29/2022[facility]01-19-2023 NoteHNO ID: [id number] Author: Tad Shaw DO Service: Obstetrics Author [...] intractable nausea/vomiting. She was sent her from [facility] Main ED. In the ED, patient [...] Diagnosis Date Cognitive disorder IEP per the [facility] Kidney stone Migraine [...] Oliveira DATE: October 29, 2022 TIME: 3:25 [facility]01-19-2023 NoteCOVID 19 RESULT: SARS-CoV-2 (Agent of COVID-19) Not Detected by RT-PCR or equivalent method. This test has been authorized by FDA under an Emergency Use Authorization (EUA). INFLUENZA A PCR: Negative for Influenza A by RT-PCR INFLUENZA B PCR: Negative for Influenza B by RT-PCR RSV PCR: Negative for Respiratory Syncytial Virus (RSV) by [facility] CenterComment on above:Performed By: #### [id number] ####[facility] LABORATORYCLIA [id number] [place] [address] [place] [id number] Miscellaneous Notes* Quick Notes - Gretel Quintana [...] vaccine). Gretel Quintana MD documented [facility] Nurse Note* Aimee Desir Ma - 10/14/2022 11:01 AM EST Movement? Flutters Vaginal Bleeding: NO Vaginal fluid leakage of fluid: NO Contractions: no contractions documented in this encounterT[facility]12-08-2022 NoteHNO ID: [id number] Author: Braulio Hollingsworth MD Service: ? Author Type: Physician Type: Progress Notes Filed: 09/17/2022 2:28 PM Note Text: Please refer to quick note and flow sheet. [facility]22 NoteHNO ID: [id number] Author: Braulio Hollingsworth MD Service: ? 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 loratadine (CLARITIN) 10 mg tablet Take 1 tablet by mouth once daily. fluticasone (FLONASE) 50 mcg/actuation nasal spray Use 1 Mcintosh in each nostril once daily. No current [...] 4 weeks or sooner prn. Braulio Hollingsworth [facility]11-09-2022 NoteHNO ID: [id number] Author: Braulio Hollingsworth MD Service: ? Author Type: Physician Type: Progress Notes Filed: 08/19/2022 5:28 PM Note Text: OB point of care ultrasound was performed. See imaging tab for details. 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 No current [...] prn. Braulio Hollingsworth MD documented in this encounterT[facility]11-[facility]-2022 Instructions* Patient Instructions* Braulio Hollingsworth MD - 08/19/2022 1:48 PM EST Please select the following link to access the [facility] Your Guide to a Healthy . [email or web address] documented in this encounterTogus [facility]11-09-2022 History of Present illness Narrative* Braulio Hollingsworth MD - 08/19/2022 1:41 PM EST OB point of care ultrasound was performed. See imaging tab for details. Braulio Hollingsworth MD documented in this encounterT[facility]11-09-2022 Nurse Note* Jennifer Stevenson MA - 08/19/2022 1:07 PM EST Movement? Too early Vaginal Bleeding: YES/MD NOTIFIED-Has had for 2 weeks Vaginal fluid leakage of fluid: NO Contractions: no contractions documented in this encounterTogus [facility]11-04-2022 NoteHNO ID: [id number] Author: Zuhair Condon DO Service: Obstetrics Author [...] 14, 2022 TIME: 9:44 PM PAGER/CONTACT #: [phone] [facility]22 NoteHNO ID: [id number] Author: Zuhair Condon DO Service: Obstetrics Author [...] Patient states that she originally went to [facility] ED on 08/09/22. 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 No [...] of discharge (more content not included)...[facility]10-31-2022 Miscellaneous Notes* Telephone Encounter - Nisa Murphy - 08/10/2022 9:31 AM EDT Patient was in ED for bleeding. Not currently bleeding has new OB appointment 08/19. Please advise if you would like to see her sooner. documented in this encounterT[facility]10-25-2022 Hospital Discharge instructions* Discharge Instructions* Melania Mitchell MD - 08/04/2022 1:22 PM EDT Please call your OB today to schedule a follow up visit in the next 2 days. * Attachments The following attachments cannot be sent through Care Everywhere. * Miscarriage: Threatened (Cymro) documented in this encounterSUMMA Work Phone: [phone] 135-610009-29-2022 Miscellaneous Notes* Telephone Encounter - Verónica Alegre [...] 09, 2022 12:24 PM documented in this encounterTogus [facility] CenterEvaluation + Plan note Future Appointments Appointment Date:11/16/2022 02:00:00 PM Scheduled Provider:SUNIL GRAHAM MD Location[facility] Appointment Type: OV OB Routine Follow Up [facility] Evaluation + Plan note Future Appointments Appointment Date:12/14/2022 02:15:00 PM Scheduled Provider:SUNIL GRAHAM MD Location[facility] Appointment Type: OV OB Routine Follow Up Appointment Date:12/23/2022 08:30:00 AM Scheduled Provider: Location:[facility] Appointment Type:US OB > 14 wks Future Scheduled Tests Radiology* US OB Limited/Transvaginal 01/11/23 * US OB > 14 weeks 12/23/22 [facility] Evaluation + Plan note Future Appointments [...] Antibody 12/14/22 Radiology* US OB Limited/Transvaginal 01/11/23 [facility] Evaluation + Plan note Future Appointments Appointment Date:01/25/2023 01:00:00 PM Scheduled Provider:SUNIL GRAHAM MD Location:[facility] Appointment Type: OV OB Routine Follow [...] Antibody 12/14/22 Radiology* US OB Limited/Transvaginal 01/11/23 [facility] Evaluation + Plan note Future Appointments Appointment Date:02/01/2023 01:15:00 PM Scheduled Provider:SUNIL GRAHAM MD Location:[facility] Appointment Type:[facility] OB Routine Follow Up Appointment Date:03/15/2023 02:00:00 PM Scheduled Provider: Location:[facility] Appointment Type:US OB > 14 wks [...] * US OB > 14 weeks 03/15/23 [facility] Evaluation + Plan note Future Appointments Appointment Date:03/09/2023 01:45:00 PM Scheduled Provider:LONG DICKERSON MD Location:[facility] Appointment Type:[facility] OB Routine Follow Up Appointment Date:03/15/2023 02:00:00 PM Scheduled Provider: Location:[facility] Appointment Type:US OB > 14 wks [...] * US OB > 14 weeks 03/15/23 [facility] Evaluation + Plan note Future Appointments Appointment Date:03/15/2023 02:00:00 PM Scheduled Provider: Location:[facility] Appointment Type:US OB > 14 wks Appointment Date:03/16/2023 02:30:00 PM Scheduled Provider:LONG DICKERSON MD Location:[facility] Appointment Type:[facility] OB Routine Follow Up Diagnostic Tests Pending [...] * US OB > 14 weeks 03/15/23 [facility] Evaluation + Plan note Future Appointments Appointment Date:03/15/2023 02:00:00 PM Scheduled Provider: Location:[facility] Appointment Type:US OB > 14 wks Appointment Date:03/16/2023 02:30:00 PM Scheduled Provider:LONG DICKERSON MD Location:[facility] Appointment Type:[facility] OB Routine Follow Up Future Scheduled Tests [...] * US OB > 14 weeks 03/15/23 [facility] Evaluation + Plan note Future Appointments Appointment Date:03/16/2023 02:30:00 PM Scheduled Provider:LONG DICKERSON MD Location:[facility] Appointment Type: OV OB Routine Follow [...] Urine 01/25/23 Radiology* US OB Limited/Transvaginal 01/11/23 [facility] Evaluation + Plan note Future Appointments Appointment Date:07/28/2024 08:30:00 AM Scheduled Provider:KIRSTEN CISNEROS Location:[facility] Appointment Type:PC Wellness Annual Future Scheduled Tests Laboratory* Glucose Level 07/20/23 * Lipid Profile 07/20/23 [facility] Evaluation + Plan note Future Appointments Appointment Date:08/25/2024 07:30:00 AM Scheduled Provider:KIRSTEN CISNEROS Location:[facility] Appointment Type:PC OV Future Scheduled Tests Radiology* CT Head or Brain w/o Contrast 07/28/24 * CT Spine Cervical w/o Contrast 07/28/24 [facility] Evpxrtjykf note* Diagnosis Threatened miscarriage in early - Primary Threatened , unspecified as to episode of care documented in this encounter [facility] Work Phone: Evaluation note* Diagnosis Onset Date Resolution Status Acute lumbar myofascial strain acute Blunt abdominal trauma acute Cervical strain, acute acute Chest wall contusion acute Concussion without loss of consciousness acute Lumbar radiculopathy, acute acute [facility] Work Phone: Evaluation note* Diagnosis Encounter for supervision of normal first in first trimester- Primary Supervision of normal first documented in this encounter [facility] note* Diagnosis with uncertain dates in first trimester- Primary documented in this encounter [facility] note* Diagnosis Encounter for supervision of normal first in second trimester- Primary Supervision of normal first Need for influenza vaccination Need for prophylactic vaccination and inoculation against influenza 15 weeks gestation of state, incidental [facility] Narrative No data available for this section [facility] Hospital Discharge instructions Additional Instructions Follow-up with your ORCHESTRA MUSICIAN. Return if you have worsening symptoms or worsening abdominal pain/fever.[facility] Work Phone: Hospital Discharge instructions No data available for this section [facility] Progress note No data available for this section [facility] Reason for referral (narrative)* Diagnostic Procedure Only (Routine) - Pending Review Specialty Diagnoses / Procedures Referred By Contac t Referred To Contact [facility] Diagnoses Encounter for supervision of normal first in first trimester Procedures NUCHAL TRANSLUCENCY WHI US NUCHAL TRANSLUCENCY 1ST GESTATION Braulio Hollingsworth MD [address] [facility] [address] [place] [address] [facility] [address] [place] [address] Referral ID Status Reason Start Date Expiration Date Visits Requested Visits Authorized [id number] Pending Review Auto-Generat ed Referral 08/19/2022 08/19/2023 1 1 [facility] Diagnostic Procedure Only (Routine) - Authorized Specialty Diagnoses / Procedures Referred By Contac t Referred To Contact [facility] Diagnoses Encounter for supervision of normal first in second trimester Procedures OBSTETRIC ULTRASOUND WHI US PREG UTERUS AFTER 1ST TRIMEST GESTATION Gretel Quintana MD [address] [address] [facility] [address] [place] [address] Referral ID Status Reason Start Date Expiration Date Visits Requested Visits Authorized [id number] Authorized Auto-Generat ed Referral 10/14/2022 10/14/2023 1 1 [facility] Summary Purpose Family History No [...] Will No August 09 2:12pm Power of Hospitality Aide No August 09, 2022 2:12pm Advance Directive Response Recorded Date/ Time Advance Directives No June 7:50am Living Will No August 09 1:12pm Power of Hospitality Aide No August 09, 2022 1:12pm Chief [...] section and content) DATE CREATED AUTHOR 09/19/2018 [facility] DATE CREATED AUTHOR AUTHOR'S ORGANIZ ATION 12/26/2018 [facility] DATE CREATED AUTHOR AUTHOR'S ORGANIZ ATION 04/29/2019 [facility] DATE CREATED AUTHOR AUTHOR'S ORGANIZ ATION 12/25/2019 [facility] DATE CREATED AUTHOR AUTHOR'S ORGANIZ ATION 03/17/2021 [facility] DATE CREATED AUTHOR AUTHOR'S ORGANIZ ATION 08/29/2021 [facility] DATE CREATED AUTHOR AUTHOR'S ORGANIZ ATION 08/05/2022 [facility] DATE CREATED AUTHOR AUTHOR'S ORGANIZ ATION 11/13/2022 [facility] DATE CREATED AUTHOR AUTHOR'S ORGANIZ ATION 11/14/2022 [facility] DATE CREATED AUTHOR AUTHOR'S ORGANIZ ATION 02/20/2024 [facility] DATE CREATED AUTHOR AUTHOR'S ORGANIZ ATION 08/20/2024 [facility] DATE CREATED AUTHOR AUTHOR'S ORGANIZ ATION 06/27/2025 [facility] DATE CREATED AUTHOR AUTHOR'S ORGANIZ ATION 07/27/2025 [facility] Source Comments (unrecognize d section and content) In the event this informatio n is protected by the Federal Confidentiality of Alcohol and Drug Abuse Patient Records regulations: The Federal rules restrict any use of the information to criminally investigate or prosecute any alcohol or drug abuse patient.[facility] CenterIn the event this information is protected by the Federal Confidentiality of Alcohol and Drug Abuse Patient Records regulations: The Federal rules restrict any use of the information to criminally investigate or prosecute any alcohol or drug abuse patient.[facility] CenterIn the event this information is protected by the Federal Confidentiality of Alcohol and Drug Abuse Patient Records regulations: The Federal rules restrict any use of the information to criminally investigate or prosecute any alcohol or drug abuse patient.[facility] CenterIn the event this information is protected by the Federal Confidentiality of Alcohol and Drug Abuse Patient Records regulations: The Federal rules restrict any use of the information to criminally investigate or prosecute any alcohol or drug abuse patient.[facility] CenterIn the event this information is protected by the Federal Confidentiality of Alcohol and Drug Abuse Patient Records regulations: The Federal rules restrict any use of the information to criminally investigate or prosecute any alcohol or drug abuse patient.[facility] CenterIn the event this information is protected by the Federal Confidentiality of Alcohol and Drug Abuse Patient Records regulations: The Federal rules restrict any use of the information to criminally investigate or prosecute any alcohol or drug abuse patient.[facility] CenterIn the event this information is protected by the Federal Confidentiality of Alcohol and Drug Abuse Patient Records regulations: The Federal rules restrict any use of the information to criminally investigate or prosecute any alcohol or drug abuse patient.[facility] Reason for Visit (unrecogniz ed section and [...] Member Role: Primary Care Physician Address: Address: [address] [place] [id number] Care Team Related Persons Name: RASHMI MTZ Address: Home [address] [place] [phone] [place] Name: MARGARITO MTZ Address: Home [address] [place] [phone] [place] Name: MARGARITO MTZ Address: Home [address] [place] [address] [phone] [place] Name: MARGARITO MTZ Address: Home [address] [place] [address] [phone] [place] Name: MARGARITO MTZ Address: Home [address] [place] [address] [phone] [place] Name: MARGARITO MTZ Address: Home [address] [place] [address] [phone] [place] Name: MARGARITO MTZ Address: Home [address] [place] [address] [phone] [place] Name: MARGARITO MTZ Address: Home [address] [place] [address] [phone] [place] Name: MARGARITO MTZ Address: Home [address] [place] [phone] [place] Care Team Personnel Name: MAXWELL GOMEZ MD Member Role: Primary Care Physician Address: Address: [address] [place], [place] [phone] Care Team Related Persons Name: RASHMI MTZ Address: Home [address] [place] [phone] [place] Name: MARGARITO MTZ Address: Home [address], [place] [phone] [place] Name: MARGARITO MTZ Address: Home [address], [place] [phone] [place] Name: MARGARITO MTZ Address: Home [address] [place] [address] [phone] [place] Name: MARGARITO MTZ Address: Home [address] [place] [address] [phone] [place] Name: MARGARITO MTZ Address: Home [address] [place] [address] [phone] [place] Name: MARGARITO MTZ Address: Home [address] [place] [address] [phone] [place] Name: MARGARITO MTZ Address: Home [address] [place] [address] [phone] [place] Name: MARGARITO MTZ Address: Home [address] [place] [address] [phone] Patient Care team informatio n (unrecognized section and content) Care Team Personnel Name: MAXWELL GOMEZ MD Member Role: Primary Care Physician Address: Address: [address] [place], [place] [phone] [place] Care Team Related Persons Name: RASHMI MTZ Address: Home [address] [phone] [place] Name: MARGARITO MTZ Address: Home [address] [place] [address] [phone] [place] Name: MARGARITO MTZ Address: Home [address] [place] [address] [phone] [place] Name: MARGARITO MTZ Address: Home [address] [place] [address] [phone] [place] Name: ELVIA MTZRI Address: Home [address] [place] [address] [phone] [place] Name: MARGARITO MTZ Address: Home [address], [place] [phone] [place] Name: MARGARITO MTZ Address: Home [address], [place] [phone] [place] Name: MARGARITO MTZ Address: Home [address], [place] [phone] [place] Name: MARGARITO MTZ Address: Home [address], [place] [phone] [place] Care Team Personnel Name: MAXWELL GOMEZ MD Member Role: Primary Care Physician Address: Address: [address] [place] [phone] [place] Care Team Related Persons Name: RASHMI MTZ Address: Home [address] [phone] [place] Name: MARGARITO MTZ Address: Home [address], [place] [phone] [place] Name: MARGARITO MTZ Address: Home [address], [place] [phone] [place] Name: MARGARITO MTZ Address: Home [address], [place] [phone] [place] Name: MARGARITO MTZ Address: Home [address], [place] [phone] [place] Name: MARGARITO MTZ Address: Home [address], [place] [phone] [place] Name: MARGARITO MTZ Address: Home [address], [place] [phone] [place] Name: MARGARITO MTZ Address: Home [address], [place] [phone] [place] Name: MARGARITO MTZ Address: [address], [place] [phone] [place] Care Team Personnel Name: SUNIL GRAHAM MD Position: P4 ORCHESTRA MUSICIAN Provider Member Role: Primary Care Physician Address: Address: [address] [place], [place] [address] [facility] [place], [place] [id number] Care Team Related Persons Name: RASHMI MTZ Address: Home [address] [phone] [place] Name: MARGARITO MTZ Address: Home [address], [place] [phone] [place] Name: MARGARITO MTZ Address: Home [address], [place] [phone] [place] Name: MARGARITO MTZ Address: Home [address], [place] [phone] [place] Name: ELVIA MTZRI Address: Home [address], [place] [phone] [place] Name: ELVIA MTZRI Address: Home [address], [place] [phone] [place] Name: ELVIA MTZRI Address: Home [address], [place] [phone] [place] Name: ELVIA MTZRI Address: Home [address], [place] [phone] [place] Name: ELVIA MTZRI Address: Home [address], [place] [phone] [place] Care Team Personnel Name: SUNIL GRAHAM MD Position: P4 ORCHESTRA MUSICIAN Provider Member Role: Primary Care Physician Address: Address: [address] [place] [id number] Care Team Related Persons Name: RASHMI MTZ Address: Home [address] [phone] [place] Name: MARGARITO MTZ Address: Home [address], [place] [phone] [place] Name: ELVIA MTZRI Address: Home [address], [place] [phone] [place] Name: MARGARITO MTZ Address: Home [address], [place] [phone] [place] Name: ELVIA MTZRI Address: Home [address], [place] [phone] [place] Name: MARGARITO MTZ Address: Home [address], [place] [phone] [place] Name: MARGARITO MTZ Address: Home [address], [place] [phone] [place] Name: MARGARITO MTZ Address: Home [address], [place] [phone] [place] Name: MARGARITO MTZ Address: Home [address], [place] [phone] [place] Care Team Personnel Name: MARTINEZ NÚÑEZ MD Position: P4 ORCHESTRA MUSICIAN Provider Member Role: Primary Care Physician Address: Address: [address] [place] [id number] Care Team Related Persons Name: RASHMI MTZ Address: Home [address] [phone] [place] Name: MARGARITO MTZ Address: Home [address], [place] [phone] [place] Name: MARGARITO MTZ Address: Home [address], [place] [phone] [place] Name: MARGARITO MTZ Address: Home [address], [place] [phone] [place] Name: MARGARITO MTZ Address: Home [address], [place] [phone] [place] Name: MARGARITO MTZ Address: Home [address], [place] [phone] [place] Name: MARGARITO MTZ Address: Home [address], [place] [phone] [place] Name: MARGARITO MTZ Address: Home [address] [place] [address] [phone] [place] Name: MARGARITO MTZ Address: Home [address], [place] [phone] Care Team Personnel Name: MARTINEZ NÚÑEZ MD Position: P4 ORCHESTRA MUSICIAN Provider Member Role: Primary Care Physician Address: Address: [address] [place] [id number] Care Team Related Persons Name: RASHMI MTZ Address: Home [address] [phone] [place] Name: MARGARITO MTZ Address: Home [address], [place] [phone] [place] Name: MARGARITO MTZ Address: Home [address], [place] [phone] [place] Name: MARGARITO MTZ Address: Home [address], [place] [phone] [place] Name: MARGARITO MTZ Address: Home [address], [place] [phone] [place] Name: MARGARITO MTZ Address: Home [address], [place] [phone] [place] Name: MARGARITO MTZ Address: Home [address], [place] [phone] [place] Name: MARGARITO MTZ Address: Home [address], [place] [phone] [place] Name: MARGARITO MTZ Address: Home [address], [place] [phone] [place] Care Team Personnel Name: MARTINEZ NÚÑEZ MD Position: P4 ORCHESTRA MUSICIAN Provider Member Role: Primary Care Physician Address: Address: [address] [place] [id number] Care Team Related Persons Name: RASHMI MTZ Address: Home [address] [phone] [place] Name: MARGARITO MTZ Address: Home [address], [place] [phone] [place] Name: MARGARITO MTZ Address: Home [address], [place] [phone] [place] Name: MARGARITO MTZ Address: Home [address], [place] [phone] [place] Name: MARGARITO MTZ Address: Home [address], [place] [phone] [place] Name: MARGARITO MTZ Address: Home [address], [place] [phone] [place] Name: MARGARITO MTZ Address: Home [address], [place] [phone] [place] Name: MARGARITO MTZ Address: Home [address], [place] [phone] [place] Name: MARGARITO MTZ Address: [address], [place] [phone] [place] Care Team Personnel Name: MARTINEZ NÚÑEZ MD Position: P4 ORCHESTRA MUSICIAN Provider Member Role: Primary Care Physician Address: Address: [address] [place] [phone]- Care Team Related Persons Name: RASHMI MTZ Address: Home [address] [phone] [place] Name: MARGARITO MTZ Address: Home [address], [place] [phone] [place] Name: MARGARITO MTZ Address: Home [address], [place] [phone] [place] Name: MARGARITO MTZ Address: Home [address], [place] [phone] [place] Name: MARGARITO MTZ Address: Home [address], [place] [phone] [place] Name: MARGARITO MTZ Address: Home [address], [place] [phone] [place] Name: MARGARITO MTZ Address: Home [address] [phone] [place] Name: MARGARITO MTZ Address: Home [address], [place] [phone] [place] Name: MARGARITO MTZ Address: Home [address] [phone] [place] Care Team Personnel Name: MARTINEZ NÚÑEZ MD Position: P4 ORCHESTRA MUSICIAN Provider Member Role: Primary Care Physician Address: Address: [address] [place] [phone] [place] [address] Care Team Related Persons Name: ARSHMI MTZ Address: Home [address] [phone] [place] Name: MARGARITO MTZ Address: Home [address], [place] [phone] [place] Name: MARGARITO MTZ Address: Home [address], [place] [phone] [place] Name: MARGARITO MTZ Address: Home [address], [place] [phone] [place] Name: MARGARITO MTZ Address: Home [address], [place] [phone] [place] Name: MARGARITO MTZ Address: Home [address], [place] [phone] [place] Name: MARGARITO MTZ Address: Home [address], [place] [id number] [place] Name: MARGARITO MTZ Address: Home [address], [place] [phone] [place] Name: MARGARITO MTZ Address: [address], [place] [phone] [place] Care Team Personnel Name: MARTINEZ NÚÑEZ MD Position: P4 ORCHESTRA MUSICIAN Provider Member Role: Primary Care Physician Address: Address: [address] [place] [address]- Care Team Related Persons Name: AMANDA OLIVEIRA Address: Home [address] [place] [phone] [place] Address: Temporary [address] [place], [place] [phone] Name: RASHMI MTZ Address: Home [address] [phone] [place] Name: MARGARITO MTZ Address: Home [address], [place] [phone] [place] Name: MARGARITO MTZ Address: Home [address], [place] [phone] [place] Name: MARGARITO MTZ Address: Home [address] [phone] [place] Name: MARGARITO MTZ Address: Home [address], [place] [phone] [place] Name: MARGARITO MTZ Address: Home [address], [place] [phone] [place] Name: MARGARITO MTZ Address: Home [address], [place] [phone] [place] Name: MARGARITO MTZ Address: Home [address], [place] [phone] [place] Name: MARGARITO MTZ Address: [address], [place] [phone] [place] Care Team Personnel Name: MARTINEZ NÚÑEZ MD Position: P4 ORCHESTRA MUSICIAN Provider Member Role: Primary Care Physician Address: Address: [address] [place] [address] [place], [place] [id number] Care Team Related Persons Name: LUIS DANIEL OLIVEIRA Address: Home [address] [place], [place] [phone] Address: Temporary [address] [place], [place] [phone] Care Team Personnel Name: [facility] Position: P4 Advanced Poultry Dresser Member Role: Primary Care Physician Address: Address: [address] [place] [id number] Care Team Related Persons Name: LUIS DANIEL OLIVEIRA Address: Home [address] [place], [place] [phone] Address: Temporary [address] [place], [place] [phone] Care Team Personnel Name: KIRSTEN [facility]N-[facility] INTERN Position: P4 Advanced Poultry Dresser Member Role: Primary Care Physician Address: Address: [address] [place] [address]- Care Team Related Persons Name: LUIS DANIEL OLIVEIRA Address: Home [address] [place], [place] [phone] Address: Temporary [address] [place], [place] [phone] FOR RECORDS PERTAINING TO PATIENTS WHO ARE [...] BE BASED ON THE PRIMARY CLINICAL RECORDS. [facility] [employer] provides no warranty or guarantee of the accuracy or completeness of information in this document.
--- OUTSIDE RECORDS SUMMARY | 2025-07-30 | XMS RPT_ITS | CCD ---
Author Organization [facility] Care Team Providers Care Fudger Name Role Phone Lynsey [phone], Alex [phone] C onsulting Unavailable KWON DO, KAY K [...] MARTINEZ NÚÑEZ MD Primary Care Physician MAST POWER TOOL REPAIR TECHNICIAN-HAND COMPOSITOR, KIRSTEN Primary Care Physician WILTON AN, MARTINEZ Bautista Primary Care Unavailable LIVIER AN, SUNIL Admitting Unavailable JAYLA AN, LONG Attending Unavailable WILTON AN, MARTINEZ Bautista Attending Unavailable WILTON AN, MARTINEZ Bautista Primary Care Unavailable WILTON AN, MARTINEZ Bautista Attending Unavailable WILTON AN, MARTINEZ Bautista Primary Care Unavailable WILTON AN, MARTINEZ Bautista Attending Unavailable WILTON AN, MARTINEZ Bautista Primary Care Unavailable [facility], OSMAN Attending Unavailhieu NÚÑEZ MD, MARTINEZ Bautista Primary Care Unavailable MAST POWER TOOL REPAIR TECHNICIAN-HAND COMPOSITOR, KIRSTEN Attending Unavailabl e MAST POWER TOOL REPAIR TECHNICIAN-HAND COMPOSITOR, KIRSTEN Primary Care Unavailabl e LIVIER AN, SUNIL Attending Unavailable WILTON AN, MARTINEZ Bautista Primary Care Unavailable JAYLA AN, LONG Attending Unavailable WILTON AN, MARTINEZ Bautista Primary Care Unavailable JAYLA AN, LONG Attending Unavailable WILTON AN, MARTINEZ Bautista Primary Care Unavailable MAST POWER TOOL REPAIR TECHNICIAN-HAND COMPOSITOR, KIRSTEN Attending Unavailabl e MAST POWER TOOL REPAIR TECHNICIAN-HAND COMPOSITOR, KIRSTEN Primary Care Unavailabl e RAMA AVALOS [...] Care Physician, No Primary Referring Unava ilable Dmaari Mcdonough Attending Unavailable Rama tSuart Attending Unavailabl e Care Physician, No Primary [...] Physician, No Primary Primary Care Unava ilable [place] AVIONICS INSTALLER, Remedios Attending Unavailable Care Physician, No Primary Referring Unava ilable Care Physician, No Primary Primary Care Unava ilable Sanchez, Geraldine Referring Unavailable Sanchez, Geraldine Attending Unavailable Vande Velde, Rama Referring Unavailabl e Vande Velde, Rama Attending Unavailabl e Care Physician, No Primary Primary Care Unava ilable Antonio, Dorado Consulting Unavailable Care Physician, No Primary Primary Care Unava ilable [place] AVIONICS INSTALLER, Remedios Attending Unavailable GardnerMendez Attending Unavailable Care Physician, No Primary Primary Care Unava ilable [place] AVIONICS INSTALLER, Remedios Attending Unavailable Care Physician, No Primary Primary Care Unava ilable Jose AVIONICS INSTALLER, Remedios Referring Unavailable Care Physician, No Primary Primary Care Unava ilable Marcanthony, Geraldine Referring Unavailable Marcanthony, Geraldine Attending Unavailable Care Physician, No Primary Primary Care Unava ilable Damari Mcdonough Referring Unavailable Damari Mcdonough Attending Unavailable Jose AVIONICS INSTALLER, Remedios Attending Unavailable Care Physician, No Primary Primary Care Unava ilable [place] AVIONICS INSTALLER, Remedios Referring Unavailable Jose AVIONICS INSTALLER, Remedios Attending Unavailable Care Physician, No Primary Primary Care Unava ilable Jose AVIONICS INSTALLER, Remedios Referring Unavailable Care Physician, No Primary Primary Care Unava ilable Care Physician, No Primary Referring Unava ilable Geraldine Bradford Attending Unavailable Allergies Allergy Classification Reported Allergen(s) Allergy Type Date of Onset Reaction(s) Facility (1 source) Escitalopram Drug Allergy [facility] Repository (11 sources) Citalopram; Translations: [CITALOPRAM HYDROBROMIDE] Drug Allergy 4 Other: See Comments [facility] Work Phone: (11 sources) Escitalopram; Translations: [ESCITALOPRAM] Drug Allergy 1 Other: See Comments [facility] Work Phone: (15 sources) Citalopram; Translations: [citalopram] Drug Allergy Suicidal ideation [facility] (1 source) Citalopram Drug Allergy 5 [facility] Repository (1 source) Escitalopram Drug Allergy [facility] Repository Medications Current Medications Medication Drug Class(es) Dates Sig (Normalized) Sig (Original) acetaminophen 500 mg oral tablet (1 source) Start: 03-31-2023 End: 04-28-2023 Tylenol Extra Strength 500 mg oral tablet Dose : 500 mg = 1 tab(s), Oral, q4h, X 14 day(s), # 30 tab(s), 1 Refill(s), 04/28/23 11:38:00 EDT, Pharmacy: [facility]/pharmacy #[id number], 155, cm, 03/30/23 7:49:00 EDT, Height Start Date: 03/31/23 Stop Date: 04/28/23 Status: Ordered benzocaine 200 mg/ml topical spray (1 source) Standardized Chemical Allergen Start: 03-31-2023 End: 04-14-2023 apply 1 dose topically four times daily Americaine 20% topical spray Dose = 1 herlinda, Topical, QID, X 14 day(s), # 1 EA, 0 Refill(s), Pharmacy: [facility]/pharmacy #[id number], 155, cm, 03/30/23 7:49:00 EDT, [...] 0 Refill(s), 02/25/24 8:31:00 AM EDT, Pharmacy: [id number], 155, cm, 02/18/24 [...] BID, # 28 tab(s), 0 Refill(s), Pharmacy: [facility] #[id number], 155, cm, 02/18/24 7:59:00 EDT, [...] tab(s), 0 Refill(s), 04/14/23 11:38:00 EDT, Pharmacy: [facility]/pharmacy #[id number], 155, cm, 03/30/23 7:49:00 EDT, Height Start Date: 03/31/23 Stop Date: 04/14/23 Status: Ordered magnesium oxide 400 mg oral tablet (3 sources) Start: 01-11-2023 End: 02-10-2023 magnesium oxide 400 mg oral tablet Dose : 400 mg = 1 tab(s), Oral, qHS, X 30 day(s), # 30 tab(s), 0 Refill(s), 02/10/23 15:17:00 EDT, Pharmacy: [facility]/pharmacy #[id number], 155, , 01/11/23 15:08:00 EDT, [...] tylenol, # 12 tab(s), 0 Refill(s), Pharmacy: [facility]/pharmacy #[id number], 155, cm, 01/11/23 15:08:00 EDT, [...] on above: Take 1 capsule by mo [facility] daily with breakfast. AD oral tablet (10 sources) Start: 01-26-2023 take 1 tablet by mouth once daily AD oral tablet Dose = 1 tab(s), Oral, Daily, # 30 tab(s), 0 Refill(s) Start Date: 01/26/23 Status: Ordered Yukwowvn-Vyn-As-Fa () 1 mg Tablet (2 sources) Start: 08-09-2022 take 1 tablet by mouth once daily Vbuzdmuf-Ryr-Ep-Fa () 1 mg Tablet Active 1 TABLET PO DAILY August 08, 2022 11:00pm Start: 08-09-2022 [facility] Pekskcuj-Cpi-Qc-Fa () 1 mg Tablet Active 1 TABLET [...] qDay, # 30 tab(s), 11 Refill(s), [id number], Depression, major, recurrent, moderate, 154, cm, 07/20/23 7:49:00 EDT, Height, kg, 07/20/23 7:49:00 EDT, Dosing Weight Start Date: 08/16/23 Stop Date: 08/10/24 Status: Ordered Vitamin B2 100 mg oral tablet (8 sources) Start: 02-04-2023 take 1 tablet by mouth once daily Vitamin B2 100 mg oral tablet 1 tab(s), Oral, qDay, # 30 tab(s), 2 Refill(s), Pharmacy: [facility] STORE [id number], 155, cm, 02/01/23 13:50:00 EDT, Height, kg, 01/26/23 0:59:00 EDT, Dosing Weight Start Date: 02/04/23 Status: Ordered Start: 01-11-2023 Vitamin B2 100 mg oral tablet Dose : 100 mg = 1 tab(s), Oral, Daily, # 30 tab(s), 2 Refill(s), Pharmacy: [facility]/pharmacy #[id number], 155, cm, 01/11/23 15:08:00 EDT, [...] (FLONASE) 50 mcg/actuation nasal spray Use 1 Murphy in each nostril once daily. 1 Bottle 2 07/10/2014 08/19/2022 Discontinued Comment on above: Use 1 Murphy in each nostril once daily. loratadine 10 [...] (3 sources) Congenital vesicoureterorenal reflux; Translations: [Congenital hficvt-efyzrsw-ubokg reflux] Onset: 5 Chronic Headache; including migraine [...] Absolute Lymph 1.09 X10 3/uL Normal 0.83-4.51 [facility] Comment on above: Performed By: #### L 100.0100, L500.4050 #### [facility] [address] [place], [place], [id number] Absolute Neut 6.9 X10 3/uL Normal 2.0-7.7 [facility] Comment on above: Performed By: #### L 100.0100, L500.4050 #### [facility] [address] [place], [address] Basophils/100 WBC (Bld) 0.1 % Normal 0-1 [facility] Comment on above: Performed By: #### L 100.0100, L500.4050 #### [facility] [address] [place], [address] Eosinophils/100 WBC (Bld) 0.2 % Normal 0-5 [facility] Comment on above: Performed By: #### L 100.0100, L500.4050 #### [facility] [address] [place], [address] Erythrocyte distribution width (RBC) [Ratio] 14.1 % Normal 11.6-14.6 [facility] Comment on above: Performed By: #### L 100.0100, L500.4050 #### [facility] [address] [place], [address] Hematocrit (Bld) [Volume fraction] 31.9 % Low 37-47 [facility] Comment on above: Performed By: #### L 100.0100, L500.4050 #### [facility] [address] [place], [address] Hemoglobin (Bld) [Mass/Vol] 11.6 g/dL Low 12.0-15.0 [facility] Comment on above: Performed By: #### L 100.0100, L500.4050 #### [facility] [address] [place], [address] IG% 0.600 Normal 0.0-0.9 [facility] Comment on above: Result Comment: IG% - Immature Granulocytes (promyelocytes, myelocytes and metamyelocytes) > 1% indicates that a LEFT SHIFT is Present. Performed By: #### L 100.0100, L500.4050 #### [facility] [address] [place], [address] Lymphocytes/100 WBC (Bld) 12.8 % Low 19-41 [facility] Comment on above: Performed By: #### L 100.0100, L500.4050 #### [facility] [address] [place], [address] MCH (RBC) [Entitic mass] 32.6 pg High 27.0-32.0 [facility] Comment on above: Performed By: #### L 100.0100, L500.4050 #### [facility] [address] [place], [address] MCHC (RBC) [Mass/Vol] 36.4 g/dL High 32-36 [facility] Comment on above: Performed By: #### L 100.0100, L500.4050 #### [facility] [address] [place], [address] MCV (RBC) [Entitic vol] 89.6 fL Normal 81-99 [facility] Comment on above: Performed By: #### L 100.0100, L500.4050 #### [facility] [address] [place], [address] Monocytes/100 WBC (Bld) 4.7 % Normal 0-10 [facility] Comment on above: Performed By: #### L 100.0100, L500.4050 #### [facility] [address] [place], [address] Neutrophils/100 WBC (Bld) 81.6 % High 47-70 [facility] Comment on above: Performed By: #### L 100.0100, L500.4050 #### [facility] [address] [place], [address] Nucleated RBC (Bld) [#/Vol] 0 10*3/uL Normal 0-5 [facility] Comment on above: Performed By: #### L 100.0100, L500.4050 #### [facility] [address] [place], [address] Platelet mean volume (Bld) [Entitic vol] 10.1 fL Normal 6.2-12.0 [facility] Comment on above: Performed By: #### L 100.0100, L500.4050 #### [facility] [address] [place], [address] Platelets (Bld) [#/Vol] 180 10*3/uL Normal 150-450 [facility] Comment on above: Performed By: #### L 100.0100, L500.4050 #### [facility] [address] [place], [address] RBC (Bld) [#/Vol] 3.56 10*6/uL Low 4.2-5.4 [facility] Comment on above: Performed By: #### L 100.0100, L500.4050 #### [facility] [address] [place], [address] RDW SD 45.9 fl High 35.1-43.9 [facility] Comment on above: Performed By: #### L 100.0100, L500.4050 #### [facility] [address] [place], [address] WBC (Bld) [#/Vol] 8.5 10*3/uL Normal 4.4-11.0 [facility] Comment on above: Performed By: #### L 100.0100, L500.4050 #### [facility] [address] [place], [address] Comprehensive Metabolic Prof [facility] 07-09-2025 Albumin [Mass/Vol] 3.9 g/dL Normal 3.5-5.0 [facility] Comment on above: Performed By: #### L 100.0100, L500.4050 #### [facility] [address] [place], [address] Albumin/Globulin [Mass ratio] 1.4 {ratio} Normal 0.9-2.4 [facility] Comment on above: Performed By: #### L 100.0100, L500.4050 #### [facility] [address] [place], [address] ALK PHOS 65 U/L Normal 35-104 [facility] Comment on above: Performed By: #### L 100.0100, L500.4050 #### [facility] [address] [place], [address] ALT [Catalytic activity/Vol] 20 U/L Normal <=34 [facility] Comment on above: Performed By: #### L 100.0100, L500.4050 #### [facility] [address] [place], [address] AST [Catalytic activity/Vol] 23 U/L Normal <=31 [facility] Comment on above: Performed By: #### L 100.0100, L500.4050 #### [facility] [address] [place], [address] Bilirubin [Mass/Vol] 0.35 mg/dL Normal 0.00-1.30 [facility] Comment on above: Performed By: #### L 100.0100, L500.4050 #### [facility] [address] [place], [address] BUN/CRE 10.5 RATIO Normal 10-20 [facility] Comment on above: Performed By: #### L 100.0100, L500.4050 #### [facility] [address] [place], [address] Calcium [Mass/Vol] 9.1 mg/dL Normal 7.6-11.0 [facility] Comment on above: Performed By: #### L 100.0100, L500.4050 #### [facility] [address] [place], [address] Chloride [Moles/Vol] 105 mmol/L Normal 98-108 [facility] Comment on above: Performed By: #### L 100.0100, L500.4050 #### [facility] [address] [place], [address] CO2 [Moles/Vol] 18.7 mmol/L Low 21.0-32.0 [facility] Comment on above: Performed By: #### L 100.0100, L500.4050 #### [facility] [address] [place], [address] Creatinine [Mass/Vol] 0.60 mg/dL Low 0.70-1.20 [facility] Comment on above: Performed By: #### L 100.0100, L500.4050 #### [facility] [address] [place], [address] GAP 14 Normal 5-15 [facility] Comment on above: Performed By: #### L 100.0100, L500.4050 #### [facility] [address] [place], [address] GFR/1.73 sq M.predicted among non-blacks MDRD (S/P/Bld) [Vol rate/Area] 128 mL/min/{1.73_m2} Normal >60 [facility] Comment on above: Result Comment: mL/m in/1.73m2 CKD-EPI Creatinine Equation (2020) Performed By: #### L 100.0100, L500.4050 #### [facility] [address] [place], [address] Globulin (S) [Mass/Vol] 2.8 g/dL Normal 2.2-4.2 [facility] Comment on above: Performed By: #### L 100.0100, L500.4050 #### [facility] [address] [place], [address] Glucose [Mass/Vol] 91 mg/dL Normal 70-99 [facility] Comment on above: Performed By: #### L 100.0100, L500.4050 #### [facility] [address] [place], [address] Potassium [Moles/Vol] 3.7 mmol/L Normal 3.3-5.1 [facility] Comment on above: Performed By: #### L 100.0100, L500.4050 #### [facility] [address] [place], [address] Sodium [Moles/Vol] 137 mmol/L Normal 133-145 [facility] Comment on above: Performed By: #### L 100.0100, L500.4050 #### [facility] [address] [place], [address] T PROT 6.7 g/dL Normal 5.9-8.4 [facility] Comment on above: Performed By: #### L 100.0100, L500.4050 #### [facility] [address] [place], [address] Urea nitrogen [Mass/Vol] 6 mg/dL Normal 4-19 [facility] Comment on above: Performed By: #### L 100.0100, L500.4050 #### [facility] [address] [place], [address] Veterinary Laboratory Diagnostician Office Visit Reporton 07-09-2025 Veterinary Laboratory Diagnostician Office Visit Report [facility]'[address], [address] [place] [address] OFFICE VISIT Date of Service: 07/09/25 MR#: [id number] Acct: [id number] Name: LUZ OLIVEIRA Rep #: 36 [...] Visit Reasons: DISCUSS CONCERNS * OK PER Rug Backing Stenciler Required: No Is patient in pain?: No Allergies escitalopram (From Lexapro) Adverse Reaction (Severe, Verified 07/09/25 09:30) SUICIDAL citalopram hydrobromide (From Celexa) Adverse Reaction (Verified 07/09/25 09:30) Other Medications ???Medication ???Instructions ???Recorded ???Confirmed ???Type ehgecdrt-rhd-Ms-FA 1 mg 1 tab PO DAILY 08/09/22 [...] hypertension Obesity affecting 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 jwzgkq-dibweor-yqjpv reflux Surgical History [place] teeth removed Family History Grandmother Breast cancer Brain cancer Grandfather CVA (cerebral vascular accident) Mother Diabetes Heart failure MRSA carrier History of recurrent miscarriages Father Hypertension Social History adopted: No household members: spouse and children housing: house number of children: 1 current occupation: [employer] current occupational exposures/hazards: No pets and [...] 3-4 times per week duration: 15-30 minutes/day kalpana/mandaeism: Catholic seatbelt use: always do you feel safe at home: Yes 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 Date Name GA/Weeks Outcome Route Bth Weight Gen Labor Lgth Anesthesia Del Locatn Provider FOB 10/11/18 Chemical 4 spontaneous 03/30/23 Amanda 39 live - full term vacuum 6lbs 1oz Female epidural [facility] Delivery Date: 03/30/23 Last Updated by: Yasmin [...] Visit Note (more content not included)... Normal [facility] Protein+Creatinine Ratio,Uri neon 07-09-2025 PROT:CRE RATIO 283 mg/g CRE High 0-200 [facility] Comment on above: Performed By: #### L 501.0900 #### [facility] [address] [place], [address] Protein (U) [Mass/Vol] 73.9 mg/dL High 0.0-12.0 [facility] Comment on above: Performed By: #### L 501.0900 #### [facility] [address] [place], [address] UR CREAT 261.00 mg/dL High 28.00-217.00 [facility] Comment on above: Performed By: #### L 501.0900 #### [facility] [address] [place], [address] Wound Cultureon 07-06-2025 WC Lesion of abdomen Possible skin contamination, further Identification and sensitivity will be performed only by physician's request. Coag Negative Staph Amount Growth 2+ Normal [facility] Comment on above: Performed By: #### L 100.0100 #### [facility] [address] [place], [address] Gram Stainon 07-04-2025 GS Lesion of abdomen Gram Stain 1+ White Blood Cells No organisms seen Normal [facility] Comment on above: Performed By: #### L 100.0100 #### [facility] [address] [place], [address] Veterinary Laboratory Diagnostician Office Visit Reporton 07-03-2025 Veterinary Laboratory Diagnostician Office Visit Report [facility] [address], [address] [place] [address] OFFICE VISIT Date of Service: 07/03/25 MR#: [id number] Acct: [id number] Name: LUZ OLIVEIRA Rep #: [id number] : 2000 Provider: JARAD moctezuma Age/Sex: 24/F [place] [facility] [place]: Signed Intake Vital Signs 05/07/25 14:40 06/06/25 13:39 07/03/25 15:35 Height 5 ft 1 in 5 ft 1 in 5 ft 1 in Weight: 185 lb 4 oz BMI 34.9 BP 109/74 Intake Visit Reasons: 21wk ob Chief Complaint: 21 Week OB Rug Backing Stenciler Required: No Is patient in pain?: No Allergies escitalopram (From Lexapro) Adverse Reaction (Severe, Verified 07/03/25 15:38) SUICIDAL citalopram hydrobromide (From Celexa) Adverse Reaction (Verified 07/03/25 15:38) Other Medications ???Medication ???Instructions ???Recorded ???Confirmed ???Type anlbnovi-rbj-El-FA 1 mg 1 tab PO DAILY 08/09/22 [...] hypertension Obesity affecting 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 bfeusx-vyjuimm-adkgz reflux Surgical History [place] teeth removed Family History Grandmother Breast cancer Brain cancer Grandfather CVA (cerebral vascular accident) Mother Diabetes Heart failure MRSA carrier History of recurrent miscarriages Father Hypertension Social History adopted: No household members: spouse and children housing: house number of children: 1 current occupation: [employer] current occupational exposures/hazards: No pets and [...] 3-4 times per week duration: 15-30 minutes/day kalpana/mandaeism: Catholic seatbelt use: always do you feel safe at home: Yes 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 Date Name GA/Weeks Outcome Route Bth Weight Infant Gen Labor Lgth Anesthesia Del Locatn Provider FOB 10/11/18 Chemical 4 spontaneous 03/30/23 Amanda 39 live - full term vacuum 6lbs 1oz [facility] Delivery [facility]: 03/30/23 Last Updated by: [...] ??-???- 9w (more content not included)... Normal [facility] Progress Noteon 06-20-2025 Cloud Systems Architect Authentication Interface Message Text [facility] MATERNAL- MEDICINE CONSULT Referring/Requesting Provider: Rama Avalos [...] disorder Chronic kidney disease kidney stones Congenital ituhhk-gxojjlc-ghwob reflux Depression Elevated liver enzymes Headache in [...] repeat LFTs are elevated, refer to local sailing master for further evaluation. Frequent UTI 06/20/2025 - [...] hemorrhage, stillbirth, anomalies, delivery and postcesarean complications. [place] of medicine recommend weight gain in : [...] findings. Ame (more content not included)... Normal [facility] Laboratory Diagnostician Office Visit Reporton 06-06-2025 Veterinary Laboratory Diagnostician Office Visit Report [facility]'s [address], [address] [place] [address] OFFICE VISIT Date of Service: 06/06/25 MR#: [id number] Acct: [id number] Name: LUZ OLIVEIRA Rep #: [id number] : 2000 Provider: Dr. Rama Trammell DO Age/Sex: 24/F [place] [facility] [place]: Signed Intake Vital Signs 04/09/25 10:40 05/30/25 09:28 06/06/25 13:37 06/06/25 13:39 Height 5 ft 1 in 5 ft 1 in 5 ft 1 in 5 ft 1 in Weight: 183 lb 5 oz BMI 34.6 BP 112/68 Intake Visit Reasons: 17 wk ob Rug Backing Stenciler Required: No Is patient in pain?: No Allergies escitalopram (From Lexapro) Adverse Reaction (Severe, Verified 06/06/25 13:36) SUICIDAL citalopram hydrobromide (From Celexa) Adverse Reaction (Verified 06/06/25 13:36) Other Medications ???Medication ???Instructions ???Recorded ???Confirmed ???Type uwrmkvoa-gqa-Xm-FA 1 mg 1 tab PO DAILY 08/09/22 06/06/25 H istory tablet metoclopramide HCl 5 mg tablet 5 mg PO QACHS #60 tabs 04/19/25 Rx (Reglan) Last Menstrual Period: 02/02/25 Zika: Zika virus screening: Negative : No PFSH PFSH Medical History Fatty liver Renal atrophy, left Elevated liver enzymes Heart palpitations History of gestational hypertension Obesity affecting 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 oggccw-wchabvr-uzfnc reflux Surgical History [place] teeth removed Family History Grandmother Breast cancer Brain cancer Grandfather CVA (cerebral vascular accident) Mother Diabetes Heart failure MRSA carrier History of recurrent miscarriages Father Hypertension Social History adopted: No household members: spouse and children housing: house number of children: 1 current occupation: [employer] current occupational exposures/hazards: No pets and [...] 3-4 times per week duration: 15-30 minutes/day kalpana/mandaeism: Catholic seatbelt use: always do you feel safe at home: Yes 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 Date Name GA/Weeks Outcome Route Bth Weight Gen Labor Lgth Anesthesia Del Locatn Provider FOB 10/11/18 Chemical 4 spontaneous 03/30/23 Amanda 39 live - full term vacuum 6lbs 1oz Female epidural [facility] Delivery Date: 03/30/23 Last Updated by: Yasmin [...] ??-???- Negat (more content not included)... Normal [facility] Urine Cultureon 06-02-2025 URC #1,2 Gram positive francheska suggestive of a diphtheroid. Susceptibility not normally performed on this organism Urine Culture Urine Culture Urine Culture Corynebacterium amycolatum Paradox Count 11,000-25,000 Corynebacterium minutissimum Corynebacterium minutissimum Normal [facility] Comment on above: Performed By: #### M 100.678, M100.2200, L400.0001 #### [facility] [address] [place], [place], [address] Cardiology Visit Reporton Cardiology Visit Report [facility] [address] [place] [address] OFFICE VISIT Date of Service: 05/30/25 MR#: [id number] Acct: [id number] Name: LUZ OLIVEIRA Rep #: [id number] : 2000 Provider: Dr. 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 (MONSTER) Rug Backing Stenciler Required: No Accompanied by: Self Is patient in pain?: No Allergies escitalopram (From Lexapro) Adverse Reaction (Severe, Verified 05/30/25 09:34) SUICIDAL citalopram hydrobromide (From Celexa) Adverse Reaction (Verified 05/30/25 09:34) Other Medications ???Medication ???Instructions ???Recorded ???Confirmed ???Type iamlmbzh-vqa-Yj-FA 1 mg 1 tab PO DAILY 08/09/22 05/30/25 H istory tablet metoclopramide HCl 5 mg tablet 5 mg PO QACHS #60 tabs 04/19/25 Rx (Reglan) PFSH Medical History Fatty liver Renal atrophy, left Elevated liver enzymes Heart palpitations History of gestational hypertension Obesity affecting 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 ovjvby-trqlgbe-nqfim reflux Surgical History [place] teeth removed Family History Grandmother Breast cancer Brain cancer Grandfather CVA (cerebral vascular accident) Mother Diabetes Heart failure MRSA carrier History of recurrent miscarriages Father Hypertension Social History adopted: No household members: spouse and children housing: house number of children: 1 current occupation: [employer] current occupational exposures/hazards: No pets and [...] 3-4 times per week duration: 15-30 minutes/day kalpana/mandaeism: Catholic seatbelt use: always do you feel safe at home: Yes 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 Normal [facility] Comprehensive Metabolic Prof ilon 05-30-2025 Albumin [Mass/Vol] 4.0 g/dL Normal 3.5-5.0 [facility] Comment on above: Performed By: #### L 100.0100, L500.4050 #### [facility] [address] [place], [address] Albumin/Globulin [Mass ratio] 1.5 {ratio} Normal 0.9-2.4 [facility] Comment on above: Performed By: #### L 100.0100, L500.4050 #### [facility] [address] [place], [address] ALK PHOS 56 U/L Normal 35-104 [facility] Comment on above: Performed By: #### L 100.0100, L500.4050 #### [facility] [address] [place], [address] ALT [Catalytic activity/Vol] 35 U/L Normal <=34 [facility] Comment on above: Performed By: #### L 100.0100, L500.4050 #### [facility] [address] [place], [address] AST [Catalytic activity/Vol] 29 U/L Normal <=31 [facility] Comment on above: Performed By: #### L 100.0100, L500.4050 #### [facility] [address] [place], [address] Bilirubin [Mass/Vol] 0.36 mg/dL Normal 0.00-1.30 [facility] Comment on above: Performed By: #### L 100.0100, L500.4050 #### [facility] [address] [place], [address] BUN/CRE 10.5 RATIO Normal 10-20 [facility] Comment on above: Performed By: #### L 100.0100, L500.4050 #### [facility] [address] [place], [address] Calcium [Mass/Vol] 9.3 mg/dL Normal 7.6-11.0 [facility] Comment on above: Performed By: #### L 100.0100, L500.4050 #### [facility] [address] [place], [address] Chloride [Moles/Vol] 104 mmol/L Normal 98-108 [facility] Comment on above: Performed By: #### L 100.0100, L500.4050 #### [facility] [address] [place], [address] CO2 [Moles/Vol] 20.0 mmol/L Low 21.0-32.0 [facility] Comment on above: Performed By: #### L 100.0100, L500.4050 #### [facility] [address] [place], [address] Creatinine [Mass/Vol] 0.57 mg/dL Low 0.70-1.20 [facility] Comment on above: Performed By: #### L 100.0100, L500.4050 #### [facility] [address] [place], [address] GAP 14 Normal 5-15 [facility] Comment on above: Performed By: #### L 100.0100, L500.4050 #### [facility] [address] [place], [address] GFR/1.73 sq M.predicted among non-blacks MDRD (S/P/Bld) [Vol rate/Area] 129 mL/min/{1.73_m2} Normal >60 [facility] Comment on above: Result Comment: mL/m in/1.73m2 CKD-EPI Creatinine Equation (2020) Performed By: #### L 100.0100, L500.4050 #### [facility] [address] [place], [address] Globulin (S) [Mass/Vol] 2.6 g/dL Normal 2.2-4.2 [facility] Comment on above: Performed By: #### L 100.0100, L500.4050 #### [facility] [address] [place], [address] Glucose [Mass/Vol] 92 mg/dL Normal 70-99 [facility] Comment on above: Performed By: #### L 100.0100, L500.4050 #### [facility] [address] [place], [address] Potassium [Moles/Vol] 3.8 mmol/L Normal 3.3-5.1 [facility] Comment on above: Performed By: #### L 100.0100, L500.4050 #### [facility] [address] [place], [address] Sodium [Moles/Vol] 138 mmol/L Normal 133-145 [facility] Comment on above: Performed By: #### L 100.0100, L500.4050 #### [facility] [address] [place], [address] T PROT 6.6 g/dL Normal 5.9-8.4 [facility] Comment on above: Performed By: #### L 100.0100, L500.4050 #### [facility] [address] [place], [address] Urea nitrogen [Mass/Vol] 6 mg/dL Normal 4-19 [facility] Comment on above: Performed By: #### L 100.0100, L500.4050 #### [facility] [address] [place], [address] Thyroid Stim Hormone (TSH)on 05-30-2025 TSH 0.631 uIU/mL Normal 0.300-4.200 [facility] Comment on above: Performed By: #### L 501.9520 #### [facility] [address] [place], [address] CBC W/Diff, Automatedon Absolute Lymph 1.81 X10 3/uL Normal 0.83-4.51 [facility] Comment on above: Performed By: #### L 100.0100, L500.4050 #### [facility] [address] [place], [address] Absolute Neut 5.3 X10 3/uL Normal 2.0-7.7 [facility] Comment on above: Performed By: #### L 100.0100, L500.4050 #### [facility] [address] [place], [address] Basophils/100 WBC (Bld) 0.1 % Normal 0-1 [facility] Comment on above: Performed By: #### L 100.0100, L500.4050 #### [facility] [address] [place], [address] Eosinophils/100 WBC (Bld) 0.3 % Normal 0-5 [facility] Comment on above: Performed By: #### L 100.0100, L500.4050 #### [facility] [address] [place], [address] Erythrocyte distribution width (RBC) [Ratio] 12.9 % Normal 11.6-14.6 [facility] Comment on above: Performed By: #### L 100.0100, L500.4050 #### [facility] [address] [place], [address] Hematocrit (Bld) [Volume fraction] 36.8 % Low 37-47 [facility] Comment on above: Performed By: #### L 100.0100, L500.4050 #### [facility] [address] [place], [address] Hemoglobin (Bld) [Mass/Vol] 13.0 g/dL Normal 12.0-15.0 [facility] Comment on above: Performed By: #### L 100.0100, L500.4050 #### [facility] [address] [place], [address] IG% 0.400 Normal 0.0-0.9 [facility] Comment on above: Result Comment: IG% - Immature Granulocytes (promyelocytes, myelocytes and metamyelocytes) > 1% indicates that a LEFT SHIFT is Present. Performed By: #### L 100.0100, L500.4050 #### [facility] [address] [place], [address] Lymphocytes/100 WBC (Bld) 23.5 % Normal 19-41 [facility] Comment on above: Performed By: #### L 100.0100, L500.4050 #### [facility] [address] [place], [address] MCH (RBC) [Entitic mass] 31.0 pg Normal 27.0-32.0 [facility] Comment on above: Performed By: #### L 100.0100, L500.4050 #### [facility] [address] [place], [address] MCHC (RBC) [Mass/Vol] 35.3 g/dL Normal 32-36 [facility] Comment on above: Performed By: #### L 100.0100, L500.4050 #### [facility] [address] [place], [address] MCV (RBC) [Entitic vol] 87.6 fL Normal 81-99 [facility] Comment on above: Performed By: #### L 100.0100, L500.4050 #### [facility] [address] [place], [address] Monocytes/100 WBC (Bld) 6.7 % Normal 0-10 [facility] Comment on above: Performed By: #### L 100.0100, L500.4050 #### [facility] [address] [place], [address] Neutrophils/100 WBC (Bld) 69.0 % Normal 47-70 [facility] Comment on above: Performed By: #### L 100.0100, L500.4050 #### [facility] [address] [place], [address] Nucleated RBC (Bld) [#/Vol] 0 10*3/uL Normal 0-5 [facility] Comment on above: Performed By: #### L 100.0100, L500.4050 #### [facility] [address] [place], [address] Platelet mean volume (Bld) [Entitic vol] 10.3 fL Normal 6.2-12.0 [facility] Comment on above: Performed By: #### L 100.0100, L500.4050 #### [facility] [address] [place], [address] Platelets (Bld) [#/Vol] 198 10*3/uL Normal 150-450 [facility] Comment on above: Performed By: #### L 100.0100, L500.4050 #### [facility] [address] [place], [address] RBC (Bld) [#/Vol] 4.20 10*6/uL Normal 4.2-5.4 [facility] Comment on above: Performed By: #### L 100.0100, L500.4050 #### [facility] [address] [place], [address] RDW SD 39.9 fl Normal 35.1-43.9 [facility] Comment on above: Performed By: #### L 100.0100, L500.4050 #### [facility] [address] [place], [address] WBC (Bld) [#/Vol] 7.7 10*3/uL Normal 4.4-11.0 [facility] Comment on above: Performed By: #### L 100.0100, L500.4050 #### [facility] [address] [place], [address] Comprehensive Metabolic Prof [facility] 05-14-2025 Albumin [Mass/Vol] 4.2 g/dL Normal 3.5-5.0 [facility] Comment on above: Performed By: #### L 100.0100, L500.4050 #### [facility] [address] [place], [address] Albumin/Globulin [Mass ratio] 1.5 {ratio} Normal 0.9-2.4 [facility] Comment on above: Performed By: #### L 100.0100, L500.4050 #### [facility] [address] [place], [address] ALK PHOS 61 U/L Normal 35-104 [facility] Comment on above: Performed By: #### L 100.0100, L500.4050 #### [facility] [address] [place], [address] ALT [Catalytic activity/Vol] 47 U/L High <=34 [facility] Comment on above: Performed By: #### L 100.0100, L500.4050 #### [facility] [address] [place], [address] AST [Catalytic activity/Vol] 36 U/L High <=31 [facility] Comment on above: Performed By: #### L 100.0100, L500.4050 #### [facility] [address] [place], [address] Bilirubin [Mass/Vol] 0.52 mg/dL Normal 0.00-1.30 [facility] Comment on above: Performed By: #### L 100.0100, L500.4050 #### [facility] [address] [place], [address] BUN/CRE 10.7 RATIO Normal 10-20 [facility] Comment on above: Performed By: #### L 100.0100, L500.4050 #### [facility] [address] [place], [address] Calcium [Mass/Vol] 9.5 mg/dL Normal 7.6-11.0 [facility] Comment on above: Performed By: #### L 100.0100, L500.4050 #### [facility] [address] [place], [address] Chloride [Moles/Vol] 102 mmol/L Normal 98-108 [facility] Comment on above: Performed By: #### L 100.0100, L500.4050 #### [facility] [address] [place], [address] CO2 [Moles/Vol] 18.6 mmol/L Low 21.0-32.0 [facility] Comment on above: Performed By: #### L 100.0100, L500.4050 #### [facility] [address] [place], [address] Creatinine [Mass/Vol] 0.66 mg/dL Low 0.70-1.20 [facility] Comment on above: Performed By: #### L 100.0100, L500.4050 #### [facility] [address] [place], [address] GAP 16 High 5-15 [facility] Comment on above: Performed By: #### L 100.0100, L500.4050 #### [facility] [address] [place], [address] GFR/1.73 sq M.predicted among non-blacks MDRD (S/P/Bld) [Vol rate/Area] 125 mL/min/{1.73_m2} Normal >60 [facility] Comment on above: Result Comment: mL/m in/1.73m2 CKD-EPI Creatinine Equation (2020) Performed By: #### L 100.0100, L500.4050 #### [facility] [address] [place], [address] Globulin (S) [Mass/Vol] 2.8 g/dL Normal 2.2-4.2 [facility] Comment on above: Performed By: #### L 100.0100, L500.4050 #### [facility] [address] [place], [address] Glucose [Mass/Vol] 92 mg/dL Normal 70-99 [facility] Comment on above: Performed By: #### L 100.0100, L500.4050 #### [facility] [address] [place], [address] Potassium [Moles/Vol] 3.8 mmol/L Normal 3.3-5.1 [facility] Comment on above: Performed By: #### L 100.0100, L500.4050 #### [facility] [address] [place], [address] Sodium [Moles/Vol] 137 mmol/L Normal 133-145 [facility] Comment on above: Performed By: #### L 100.0100, L500.4050 #### [facility] [address] [place], [address] T PROT 7.0 g/dL Normal 5.9-8.4 [facility] Comment on above: Performed By: #### L 100.0100, L500.4050 #### [facility] [address] [place], [address] Urea nitrogen [Mass/Vol] 7 mg/dL Normal 4-19 [facility] Comment on above: Performed By: #### L 100.0100, L500.4050 #### [facility] [address] [place], [address] Veterinary Laboratory Diagnostician Office Visit Reporton 05-14-2025 Veterinary Laboratory Diagnostician Office Visit Report [facility] [address], [address] [place] [address] OFFICE VISIT Date of Service: 05/14/25 MR#: [id number] Acct: [id number] Name: LUZ OLIVEIRA Rep #: [id number] : 2000 Provider: Dr. Rama Trammell DO Age/Sex: 24/F [place] [facility] [place] Status: Signed Intake Vital Signs 05/07/25 14:40 05/14/25 14:48 05/14/25 14:48 Height 5 ft 1 in 5 ft 1 in 5 ft 1 in Weight: 185 lb 1 oz BMI 34.9 BP 100/52 L Intake Visit Reasons: 14wk OB, elevated liver enzymes cbc/cmp FU Rug Backing Stenciler Required: No Is patient in pain?: No Allergies escitalopram (From Lexapro) Adverse Reaction (Severe, Verified 05/14/25 14:48) SUICIDAL citalopram hydrobromide (From Celexa) Adverse Reaction (Verified 05/14/25 14:48) Other Medications ???Medication ???Instructions ???Recorded ???Confirmed ???Type xrgpwlrj-cli-Zr-FA 1 mg 1 tab PO DAILY 08/09/22 05/14/25 H istory tablet metoclopramide HCl 5 mg tablet 5 mg PO QACHS #60 tabs 07/10/25 08 /04/25 Rx (Reglan) Last Menstrual Period: 02/02/25 Zika: Zika virus screening: Negative : No PFSH PFSH Medical History Congenital lxhbtz-qtmaqdy-fkhwo reflux Surgical History [place] teeth removed Family History Grandmother Breast cancer Brain cancer Grandfather CVA (cerebral vascular accident) Mother Diabetes Heart failure MRSA carrier History of recurrent miscarriages Father Hypertension Social History adopted: No household members: spouse and children housing: house number of children: 1 current occupation: [employer] current occupational exposures/hazards: No pets and [...] 3-4 times per week duration: 15-30 minutes/day kalpana/mandaeism: Catholic seatbelt use: always do you feel safe at home: Yes 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 (more content not included)... Normal [facility] CBC W/Diff, Automatedon 07-2 Absolute Lymph 1.24 X10 3/uL Normal 0.83-4.51 [facility] Comment on above: Performed By: #### L 100.0100, L500.4050 #### [facility] [address] [place], [address] Absolute Neut 6.2 X10 3/uL Normal 2.0-7.7 [facility] Comment on above: Performed By: #### L 100.0100, L500.4050 #### [facility] [address] [place], [address] Basophils/100 WBC (Bld) 0.1 % Normal 0-1 [facility] Comment on above: Performed By: #### L 100.0100, L500.4050 #### [facility] [address] [place], [address] Eosinophils/100 WBC (Bld) 0.1 % Normal 0-5 [facility] Comment on above: Performed By: #### L 100.0100, L500.4050 #### [facility] [address] [place], [address] Erythrocyte distribution width (RBC) [Ratio] 12.5 % Normal 11.6-14.6 [facility] Comment on above: Performed By: #### L 100.0100, L500.4050 #### [facility] [address] [place], [address] Hematocrit (Bld) [Volume fraction] 36.6 % Low 37-47 [facility] Comment on above: Performed By: #### L 100.0100, L500.4050 #### [facility] [address] [place], [address] Hemoglobin (Bld) [Mass/Vol] 12.8 g/dL Normal 12.0-15.0 [facility] Comment on above: Performed By: #### L 100.0100, L500.4050 #### [facility] [address] [place], [address] IG% 0.500 Normal 0.0-0.9 [facility] Comment on above: Result Comment: IG% - Immature Granulocytes (promyelocytes, myelocytes and metamyelocytes) > 1% indicates that a LEFT SHIFT is Present. Performed By: #### L 100.0100, L500.4050 #### [facility] [address] [place], [address] Lymphocytes/100 WBC (Bld) 15.8 % Low 19-41 [facility] Comment on above: Performed By: #### L 100.0100, L500.4050 #### [facility] [address] [place], [address] MCH (RBC) [Entitic mass] 30.8 pg Normal 27.0-32.0 [facility] Comment on above: Performed By: #### L 100.0100, L500.4050 #### [facility] [address] [place], [address] MCHC (RBC) [Mass/Vol] 35.0 g/dL Normal 32-36 [facility] Comment on above: Performed By: #### L 100.0100, L500.4050 #### [facility] [address] [place], [address] MCV (RBC) [Entitic vol] 88.2 fL Normal 81-99 [facility] Comment on above: Performed By: #### L 100.0100, L500.4050 #### [facility] [address] [place], [address] Monocytes/100 WBC (Bld) 5.0 % Normal 0-10 [facility] Comment on above: Performed By: #### L 100.0100, L500.4050 #### [facility] [address] [place], [address] Neutrophils/100 WBC (Bld) 78.5 % High 47-70 [facility] Comment on above: Performed By: #### L 100.0100, L500.4050 #### [facility] [address] [place], [address] Nucleated RBC (Bld) [#/Vol] 0 10*3/uL Normal 0-5 [facility] Comment on above: Performed By: #### L 100.0100, L500.4050 #### [facility] [address] [place], [address] Platelet mean volume (Bld) [Entitic vol] 10.7 fL Normal 6.2-12.0 [facility] Comment on above: Performed By: #### L 100.0100, L500.4050 #### [facility] [address] [place], [address] Platelets (Bld) [#/Vol] 180 10*3/uL Normal 150-450 [facility] Comment on above: Performed By: #### L 100.0100, L500.4050 #### [facility] [address] [place], [address] RBC (Bld) [#/Vol] 4.15 10*6/uL Low 4.2-5.4 [facility] Comment on above: Performed By: #### L 100.0100, L500.4050 #### [facility] [address] [place], [address] RDW SD 39.5 fl Normal 35.1-43.9 [facility] Comment on above: Performed By: #### L 100.0100, L500.4050 #### [facility] [address] [place], [address] WBC (Bld) [#/Vol] 7.8 10*3/uL Normal 4.4-11.0 [facility] Comment on above: Performed By: #### L 100.0100, L500.4050 #### [facility] [address] [place], [address] Comprehensive Metabolic Prof [facility] 05-07-2025 Albumin [Mass/Vol] 4.2 g/dL Normal 3.5-5.0 [facility] Comment on above: Performed By: #### L 100.0100, L500.4050 #### [facility] [address] [place], [address] Albumin/Globulin [Mass ratio] 1.6 {ratio} Normal 0.9-2.4 [facility] Comment on above: Performed By: #### L 100.0100, L500.4050 #### [facility] [address] [place], [address] ALK PHOS 62 U/L Normal 35-104 [facility] Comment on above: Performed By: #### L 100.0100, L500.4050 #### [facility] [address] [place], [address] ALT [Catalytic activity/Vol] 58 U/L High <=34 [facility] Comment on above: Performed By: #### L 100.0100, L500.4050 #### [facility] [address] [place], [address] AST [Catalytic activity/Vol] 43 U/L High <=31 [facility] Comment on above: Performed By: #### L 100.0100, L500.4050 #### [facility] [address] [place], [address] Bilirubin [Mass/Vol] 0.56 mg/dL Normal 0.00-1.30 [facility] Comment on above: Performed By: #### L 100.0100, L500.4050 #### [facility] [address] [place], [address] BUN/CRE 10.7 RATIO Normal 10-20 [facility] Comment on above: Performed By: #### L 100.0100, L500.4050 #### [facility] [address] [place], [address] Calcium [Mass/Vol] 9.5 mg/dL Normal 7.6-11.0 [facility] Comment on above: Performed By: #### L 100.0100, L500.4050 #### [facility] [address] [place], [address] Chloride [Moles/Vol] 102 mmol/L Normal 98-108 [facility] Comment on above: Performed By: #### L 100.0100, L500.4050 #### [facility] [address] [place], [address] CO2 [Moles/Vol] 17.7 mmol/L Low 21.0-32.0 [facility] Comment on above: Performed By: #### L 100.0100, L500.4050 #### [facility] [address] [place], [address] Creatinine [Mass/Vol] 0.59 mg/dL Low 0.70-1.20 [facility] Comment on above: Performed By: #### L 100.0100, L500.4050 #### [facility] [address] [place], [address] GAP 16 High 5-15 [facility] Comment on above: Performed By: #### L 100.0100, L500.4050 #### [facility] [address] [place], [address] GFR/1.73 sq M.predicted among non-blacks MDRD (S/P/Bld) [Vol rate/Area] 128 mL/min/{1.73_m2} Normal >60 [facility] Comment on above: Result Comment: mL/m in/1.73m2 CKD-EPI Creatinine Equation (2020) Performed By: #### L 100.0100, L500.4050 #### [facility] [address] [place], [address] Globulin (S) [Mass/Vol] 2.7 g/dL Normal 2.2-4.2 [facility] Comment on above: Performed By: #### L 100.0100, L500.4050 #### [facility] [address] [place], [address] Glucose [Mass/Vol] 110 mg/dL High 70-99 [facility] Comment on above: Performed By: #### L 100.0100, L500.4050 #### [facility] [address] [place], [address] Potassium [Moles/Vol] 3.7 mmol/L Normal 3.3-5.1 [facility] Comment on above: Performed By: #### L 100.0100, L500.4050 #### [facility] [address] [place], [address] Sodium [Moles/Vol] 135 mmol/L Normal 133-145 [facility] Comment on above: Performed By: #### L 100.0100, L500.4050 #### [facility] [address] [place], [address] T PROT 6.9 g/dL Normal 5.9-8.4 [facility] Comment on above: Performed By: #### L 100.0100, L500.4050 #### [facility] [address] [place], [address] Urea nitrogen [Mass/Vol] 6 mg/dL Normal 4-19 [facility] Comment on above: Performed By: #### L 100.0100, L500.4050 #### [facility] [address] [place], [address] HIVon 05-07-2025 HIV Non-Reactive Normal Nonreactive [facility] Comment on above: Result Comment: Non- Reactive Reactive Repeatedly reactive samples must be confirmed according to CDC recommended confirmatory algorithms. The subresults for either HIVAG or AHIV can be used as an aid in the selection of the confirmation algorithm for reactive samples. [facility] Order the HIV antibody detection and differentiation: lc#[id number] Performed By: #### L 100.0100, L500.4050 #### [facility] [address] [place], [address] Hemoglobin A1con 05-07-2025 HbA1c (Bld) [Mass fraction] 5.1 % Normal <=5.6 [facility] Comment on above: Result Comment: Norm al < 5.7 % Prediabetic 5.7 - 6.4 % Diabetic >or= 6.5 % Please note range changes. Performed By: #### L 100.0100, L500.4050 #### [facility] [address] [place], [address] Hepatitis C Antibodyon 05-07 Hepatitis C Ab Non-Reactive Normal Nonreactive [facility] Comment on above: Result Comment: Reac tive: Presumptive evidence of antibodies to HCV. Follow CDC recommendations for supplemental testing. Non-Reactive: Antibodies to HCV were not detected; does not exclude the possibility of exposure to HCV Reactive Results are presumptive evidence of antibodies to HCV. Follow CDC recommendations for supplemental testing. Order confirmation testing: HCV Quant by PCR testing - HCVPCR #[id number] Non Reactive: < 0.8 Equivocal: >/= 0.8 to < 1.0 Reactive: >/= 1.0 The CDC requires that a reactive/equivocal HCV antibody result be sent out for confirmation. HCV Quant by PCR testing. Performed By: #### L 100.0100, L500.4050 #### [facility] [address] [place], [address] L3890.6102on 05-07-2025 HEP B Surf Ag Non-Reactive Normal Nonreactive [facility] Comment on above: Result Comment: Reac tive: Presumptive evidence of HBV. Repeatedly reactive samples must be confirmed using a neutralization test ([employer] HBsAg Confirmatory Test) Non-Reactive: HBsAg not detected; does not exclude the possibility of exposure to HBV Performed By: #### L 100.0100, L500.4050 #### [facility] [address] [place], [address] L509.4006on 05-07-2025 Rubella IgG REAC Normal Nonreactive [facility] Comment on above: Result Comment: Anti body Result: Interpretation Non-Reactive: Non-Immune Reactive: Immune The following results were obtained with the [employer]ys Rubella IgG assay. Results from assays of other manufacturers cannot be used interchangeably. Performed By: #### L 100.0100, L500.4050 #### [facility] [address] [place], [address] Veterinary Laboratory Diagnostician Office Visit Reporton 05-07-2025 Veterinary Laboratory Diagnostician Office Visit Report [facility] [address], [address] [place] [address] OFFICE VISIT Date of Service: 05/07/25 MR#: [id number] Acct: [id number] Name: LUZ OLIVEIRA Rep #: [id number] : 2000 Provider: JELENA Ordonez ams Age/Sex: 24/F [place] [facility] [place]: Signed Intake Vital Signs 01/02/25 18:31 04/09/25 10:40 07/28/25 14:40 Height 5 ft 1 in 5 ft 1 in 5 ft 1 in Weight: 187 lb 4 oz BMI 35.4 BP 117/83 H Intake Visit Reasons: 13wk OB Chief Complaint: 13wk OB Rug Backing Stenciler Required: No Is patient in pain?: No Allergies escitalopram (From Lexapro) Adverse Reaction (Severe, Verified 05/07/25 14:39) SUICIDAL citalopram hydrobromide (From Celexa) Adverse Reaction (Verified 05/07/25 14:39) Other Medications ???Medication ???Instructions ???Recorded ???Confirmed ???Type dwotwvih-ixd-No-FA 1 mg 1 tab PO DAILY 08/09/22 05/07/25 H istory tablet metoclopramide HCl 5 mg tablet 5 mg PO QACHS #60 tabs 04/19/25 Rx (Reglan) Last Menstrual Period: 02/02/25 : No PFSH PFSH Medical History Congenital brcisj-bkzkznb-idvpu reflux Surgical History [place] teeth removed Family History Grandmother Breast cancer Brain cancer Grandfather CVA (cerebral vascular accident) Mother Diabetes Heart failure MRSA carrier History of recurrent miscarriages Father Hypertension Social History adopted: No household members: spouse and children housing: house number of children: 1 current occupation: [employer] current occupational exposures/hazards: No pets and [...] 3-4 times per week duration: 15-30 minutes/day kalpana/mandaeism: Catholic seatbelt use: always do you feel safe at home: Yes 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 Normal [facility] Syphilis Antibodieson 2024 Syphilis Abs Non-Reactive Normal Nonreactive [facility] Comment on above: Performed By: #### L 100.0100, L500.4050 #### [facility] [address] [place], [address] Type AND Screenon 05-07-2025 Ab SCREEN GEL Negative Normal [facility] Comment on above: Order Comment: PN Performed By: #### L 100.0100, L500.4050 #### [facility] [address] [place], [address] Chlamydia/GC CHICHO aptimaon CHLAMY,NUC ACID Negative Normal Negative [facility] Comment on above: Performed By: #### L 100.0100 #### [facility] [address] [place], [address] GC BY NUC ACID Negative Normal Negative [facility] Comment on above: Result Comment: Perf ormed at: =G - [facility] [address] [id number] Automobile Salesman: Rubi Snow MD, Phone: [phone] Performed By: #### L 100.0100 #### [facility] [address] [place], [address] PAP I-G w/rfx hrHPV-Aptimaon 04-12-2025 ADEQ Comment Normal . [facility] Comment on above: Order Comment: REDRA W. PREVIOUS SPECIMEN REJECTED DUE TO CLOTTED SPECIMEN. 01/02/251948 Result Comment: Sati sfactory for evaluation. Endocervical and/or squamous metaplastic cells (endocervical component) are present. Performed By: #### L 100.0100 #### [facility] [address] [place], [address] COMM . Normal . [facility] Comment on above: Order Comment: REDRA W. PREVIOUS SPECIMEN REJECTED DUE TO CLOTTED SPECIMEN. 01/02/251948 Performed By: #### L 100.0100 #### [facility] [address] [place], [address] COMMENT Comment Normal . [facility] Comment on above: Order Comment: REDRA W. PREVIOUS SPECIMEN REJECTED DUE TO CLOTTED SPECIMEN. 01/02/251948 Result Comment: This liquid based ThinPrep(R) pap test was screened with the use of an image guided system. Performed By: #### L 100.0100 #### [facility] [address] [place], [address] DIAG Comment Normal . [facility] Comment on above: Order Comment: REDRA W. PREVIOUS SPECIMEN REJECTED DUE TO CLOTTED SPECIMEN. 01/02/251948 Result Comment: NEGA TIVE FOR INTRAEPITHELIAL LESION OR MALIGNANCY. Performed By: #### L 100.0100 #### [facility] [address] [place], [place], [address] HPV RFLX Comment Normal . [facility] Comment on above: Order Comment: REDRA W. PREVIOUS SPECIMEN REJECTED DUE TO CLOTTED SPECIMEN. 01/02/251948 Result Comment: The HPV DNA reflex criteria were not met with this specimen result therefore, no HPV testing was performed. Performed at: - [facility] [id number] Automobile Salesman: Rubi Snow MD, Phone: [phone] Performed By: #### L 100.0100 #### [facility] [address] [place], [place], [address] PAPSMR Comment Normal . [facility] Comment on above: Order Comment: REDRA W. [...] occur. Performed By: #### L 100.0100 #### [facility] [address] [place], [place], [address] PERFORM Comment Normal . [facility] Comment on above: Order Comment: REDRA W. PREVIOUS SPECIMEN REJECTED DUE TO CLOTTED SPECIMEN. 01/02/251948 Result Comment: Delores Lombardo, Parks And Recreation Worker (ASCP) Performed By: #### L 100.0100 #### [facility] [address] [place], [place], [address] Urine Cultureon 04-11-2025 [facility] Mixed Gram Positive Organisms Paradox Count 80,000-100,000 MIXC Mixed contaminants. Submit a new specimen if indicated. Normal [facility] Comment on above: Performed By: #### L 100.0100 #### [facility] [place], [address] Veterinary Laboratory Diagnostician Office Visit Reporton 04-09-2025 Veterinary Laboratory Diagnostician Office Visit Report [facility] [address], [address] [place] [address] OFFICE VISIT Date of Service: 04/09/25 MR#: [id number] Acct: [id number] Name: LUZ OLIVEIRA Rep #: [id number] : 2000 Provider: Dr. Geraldine storey MD Age/Sex: 24/F Location[place] [facility] [place]: Signed Intake Vital Signs 01/02/25 18:31 03/13/25 11:49 04/09/25 10:39 04/09/25 10:40 Height 5 ft 1 in 5 ft 1 in 5 ft 1 in 5 ft 1 in Weight: 194 lb 8 oz BMI 36.7 BP 106/69 Intake Visit Reasons: *NEW* NOB LMP 02/02, KIMO 11/09 per Rug Backing Stenciler Required: No Is patient in pain?: Yes (cramping with urination) Allergies escitalopram (From Lexapro) Adverse Reaction (Severe, Verified 04/09/25 10:39) SUICIDAL citalopram hydrobromide (From Celexa) Adverse Reaction (Verified 04/09/25 10:39) Other Medications ???Medication ???Instructions ???Recorded ???Confirmed ???Type uoglwsbx-vsx-Fi-FA 1 mg 1 tab PO DAILY 08/09/22 04/09/25 H istory tablet Last Menstrual Period: 02/02/25 Zika: Zika virus screening: Negative : No PFSH PFSH Medical History (Updated 04/09/25 @ 10:50 by Remedios Wong) Congenital avhzdb-mgydhlz-sgagr reflux Surgical History [place] teeth removed Family History Grandmother Breast cancer Brain cancer Grandfather CVA (cerebral vascular accident) Mother Diabetes Heart failure MRSA carrier History of recurrent miscarriages Father Hypertension Social History adopted: No household members: spouse and children housing: house number of children: 1 current occupation: [employer] current occupational exposures/hazards: No pets and [...] 3-4 times per week duration: 15-30 minutes/day kalpana/mandaeism: Catholic seatbelt use: always do you feel safe at home: Yes 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 Date Name GA/Weeks Outcome Route Bth Weight Infant Gen Labor Lgth Anesthesia Del Locatn Provider FOB 10/11/18 Chemical 4 spontaneous 03/30/23 Amanda 39 live - full term vacuum 6lbs 1oz Female epidural [place] Delivery Date: 03/30/23 Last Updated [...] Normal am (more content not included)... Normal [facility] Protein+Creatinine Ratio,Uri neon 04-09-2025 PROT:CRE RATIO 58 mg/g CRE Normal 0-200 [facility] Comment on above: Performed By: #### L 100.0100 #### [facility] [address] [place], [address] Protein (U) [Mass/Vol] 15.6 mg/dL High 0.0-12.0 [facility] Comment on above: Performed By: #### L 100.0100 #### [facility] [address] [place], [address] Transvaginal w/Preg USon Transvaginal w/Preg US [facility] [address] [place], [place] [address] Transvaginal w/Preg US MR#: [id number] Acct: [id number] Name: LUZ OLIVEIRA Rep #: [id number] : 2000 F 24 From: Maxwell Ponce MD PCP: Care Physician,No Primary Status: REG CLI Study: Transvaginal w/Preg US Date of Exam: 03/15/25 Exam# [id number] Ordering Dr: Remedios Garcia AVIONICS INSTALLER AVIONICS INSTALLER -C PROCEDURE: TRANSVAGINAL W/PREG US 03/15/2025 REASON [...] follow-up. 2. Small perigestational hemorrhage. 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 7025 mIU/mL High <9 non-preg [facility] Comment on above: Result Comment: Gest ational Age 0.2-1 Week: 5-50 mIU/mL 1-2 Weeks: 50-500 mIU/mL 2-3 Weeks: 100-5000 mIU/mL 3-4 Weeks: 500-10,000 mIU/mL 4-5 Weeks:1000-50,000 mIU/mL 5-6 Weeks: 10,000-100,000 mIU/mL 6-8 Weeks: 15,000-200,000 mIU/mL 2-3 Months:10,000-100,000 mIU/mL Performed By: #### L 100.0100 #### [facility] [address] [place], [address] Office Visit Reporton 2024 Office Visit Report [facility] [address] [place] [address] OFFICE VISIT Date of Service: 03/13/25 MR#: [id number] Acct: [id number] Patient: LUZ OLIVEIRA Rep #: [id number] : 2000 Provider: JARAD moctezuma Age/Sex: 24/F Location[place] [facility] [place]: Signed Intake Vital Signs 01/02/25 18:31 03/13/25 11:49 Height 5 ft 1 in 5 ft 1 in Weight: 200 lb 6 oz BMI 37.8 BP 118/72 Intake Visit Reasons: Pre New OB, Confirm preg, Vitals Rug Backing Stenciler Required: No Is patient in pain?: No Allergies escitalopram (From Lexapro) Adverse Reaction (Severe, Verified 03/13/25 11:12) SUICIDAL citalopram hydrobromide (From Celexa) Adverse Reaction (Verified 03/13/25 11:12) Other Medications ???Medication ???Instructions ???Recorded ???Confirmed ???Type uenyiijn-zol-Ka-FA 1 mg 1 tab PO DAILY 08/09/22 [...] Pt with C/O spotting since last night. [facility] [facility] notified in office. HcG and [...] Acute (9) Autism: Status: Acute (10) Congenital urygck-szjbild-ozagc reflux: Status: Acute Comment: Recurrent UTI's and Kidney stones Orders: Orders hCG Titer Quant., Serum Today Remedios Garcia AVIONICS INSTALLER, AVIONICS INSTALLER-C O20.9 - Hemorrhage in early , unspecified [...] fallen in the past year?: No 03/13/25 0156 (more content not included)... Normal [facility] hCG Titer Quant., Serumon HCG QUANT. 3759 mIU/mL High <9 non-preg [facility] Comment on above: Result Comment: Gest ational Age 0.2-1 Week: 5-50 mIU/mL 1-2 Weeks: 50-500 mIU/mL 2-3 Weeks: 100-5000 mIU/mL 3-4 Weeks: 500-10,000 mIU/mL 4-5 Weeks:1000-50,000 mIU/mL 5-6 Weeks: 10,000-100,000 mIU/mL 6-8 Weeks: 15,000-200,000 mIU/mL 2-3 Months:10,000-100,000 mIU/mL Performed By: #### L 100.0100 #### [facility] [address] [place], [place], [id number] Culture, Blood (WB)on 2024 CUB Blood cultures x2, from two different sites No growth in 5 days. Normal [facility] Comment on above: Performed By: #### M 100.678, M100.2200, L400.0001 #### [facility] [address] [place], [place], [address] Urine Cultureon 01-04-2025 [facility] Presumptive E. coli Paradox Count 25,000-50,000 Presumptive E. coli: REACTION Ampicillin [...] TMP SMX Islt BRANDI <=20 S Normal [facility] Comment on above: Performed By: #### M 100.678, M100.2200, L400.0001 #### [facility] [address] [place], [address] Abdomen/Pelvis W IV Cont ONL Yon 01-02-2025 Abdomen/Pelvis W IV Cont ONLY [facility] Imaging Services [address] [place], [place] [address] Abdomen/Pelvis W IV Cont ONLY MR#: [id number] Acct: [id number] Name: LUZ OLIVEIRA Rep #: [id number] : 2000 F 24 From: Yari Reyes nd, MD PCP: Care Physician,No Primary Status: REG ER Study: Abdomen/Pelvis W IV Cont ONLY Date of Exam: Exam# [id number] Ordering Dr: Mendez Gardner DO PROCEDURE: ABDOMEN/PELVIS [...] recommended. 3. Diffuse hepatic steatosis. Reading Location: [facility] CC: Dr. Mendez Gardner, DO; No Primary Care Physician [employer] Teacher: Signed Normal [facility] CBC W/Diff, Automatedon 12-10 Absolute Lymph 0.64 X10 3/uL Low 0.83-4.51 [facility] Comment on above: Order Comment: REDRA W. PREVIOUS SPECIMEN REJECTED DUE TO CLOTTED SPECIMEN. 01/02/251948 Performed By: #### L 100.0100 #### [facility] [address] [place], [address] Absolute Neut 9.4 X10 3/uL High 2.0-7.7 [facility] Comment on above: Order Comment: REDRA W. PREVIOUS SPECIMEN REJECTED DUE TO CLOTTED SPECIMEN. 01/02/251948 Performed By: #### L 100.0100 #### [facility] [address] [place], [address] Basophils/100 WBC (Bld) 0.1 % Normal 0-1 [facility] Comment on above: Order Comment: REDRA W. PREVIOUS SPECIMEN REJECTED DUE TO CLOTTED SPECIMEN. 01/02/251948 Performed By: #### L 100.0100 #### [facility] [address] [place], [address] Eosinophils/100 WBC (Bld) 0.0 % Normal 0-5 [facility] Comment on above: Order Comment: REDRA W. PREVIOUS SPECIMEN REJECTED DUE TO CLOTTED SPECIMEN. 01/02/251948 Performed By: #### L 100.0100 #### [facility] [address] [place], [address] Erythrocyte distribution width (RBC) [Ratio] 12.4 % Normal 11.6-14.6 [facility] Comment on above: Order Comment: REDRA W. PREVIOUS SPECIMEN REJECTED DUE TO CLOTTED SPECIMEN. 01/02/251948 Performed By: #### L 100.0100 #### [facility] [address] [place], [address] Hematocrit (Bld) [Volume fraction] 41.9 % Normal 37-47 [facility] Comment on above: Order Comment: REDRA W. PREVIOUS SPECIMEN REJECTED DUE TO CLOTTED SPECIMEN. 01/02/251948 Performed By: #### L 100.0100 #### [facility] [address] [place], [address] Hemoglobin (Bld) [Mass/Vol] 14.6 g/dL Normal 12.0-15.0 [facility] Comment on above: Order Comment: REDRA W. PREVIOUS SPECIMEN REJECTED DUE TO CLOTTED SPECIMEN. 01/02/251948 Performed By: #### L 100.0100 #### [facility] [address] [place], [address] IG% 0.600 Normal 0.0-0.9 [facility] Comment on above: Order Comment: REDRA W. PREVIOUS SPECIMEN REJECTED DUE TO CLOTTED SPECIMEN. 01/02/251948 Result Comment: IG% - Immature Granulocytes (promyelocytes, myelocytes and metamyelocytes) > 1% indicates that a LEFT SHIFT is Present. Performed By: #### L 100.0100 #### [facility] [address] [place], [address] Lymphocytes/100 WBC (Bld) 5.9 % Low 19-41 [facility] Comment on above: Order Comment: REDRA W. PREVIOUS SPECIMEN REJECTED DUE TO CLOTTED SPECIMEN. 01/02/251948 Performed By: #### L 100.0100 #### [facility] [address] [place], [address] MCH (RBC) [Entitic mass] 30.8 pg Normal 27.0-32.0 [facility] Comment on above: Order Comment: REDRA W. PREVIOUS SPECIMEN REJECTED DUE TO CLOTTED SPECIMEN. 01/02/251948 Performed By: #### L 100.0100 #### [facility] [address] [place], [address] MCHC (RBC) [Mass/Vol] 34.8 g/dL Normal 32-36 [facility] Comment on above: Order Comment: REDRA W. PREVIOUS SPECIMEN REJECTED DUE TO CLOTTED SPECIMEN. 01/02/251948 Performed By: #### L 100.0100 #### [facility] [address] [place], [address] MCV (RBC) [Entitic vol] 88.4 fL Normal 81-99 [facility] Comment on above: Order Comment: REDRA W. PREVIOUS SPECIMEN REJECTED DUE TO CLOTTED SPECIMEN. 01/02/251948 Performed By: #### L 100.0100 #### [facility] [address] [place], [address] Monocytes/100 WBC (Bld) 5.9 % Normal 0-10 [facility] Comment on above: Order Comment: REDRA W. PREVIOUS SPECIMEN REJECTED DUE TO CLOTTED SPECIMEN. 01/02/251948 Performed By: #### L 100.0100 #### [facility] [address] [place], [address] Neutrophils/100 WBC (Bld) 87.5 % High 47-70 [facility] Comment on above: Order Comment: REDRA W. PREVIOUS SPECIMEN REJECTED DUE TO CLOTTED SPECIMEN. 01/02/251948 Performed By: #### L 100.0100 #### [facility] [address] [place], [address] Nucleated RBC (Bld) [#/Vol] 0 10*3/uL Normal 0-5 [facility] Comment on above: Order Comment: REDRA W. PREVIOUS SPECIMEN REJECTED DUE TO CLOTTED SPECIMEN. 01/02/251948 Performed By: #### L 100.0100 #### [facility] [address] [place], [address] Platelet mean volume (Bld) [Entitic vol] 10.2 fL Normal 6.2-12.0 [facility] Comment on above: Order Comment: REDRA W. PREVIOUS SPECIMEN REJECTED DUE TO CLOTTED SPECIMEN. 01/02/251948 Performed By: #### L 100.0100 #### [facility] [address] [place], [address] Platelets (Bld) [#/Vol] 188 10*3/uL Normal 150-450 [facility] Comment on above: Order Comment: REDRA W. PREVIOUS SPECIMEN REJECTED DUE TO CLOTTED SPECIMEN. 01/02/251948 Performed By: #### L 100.0100 #### [facility] [address] [place], [address] RBC (Bld) [#/Vol] 4.74 10*6/uL Normal 4.2-5.4 [facility] Comment on above: Order Comment: REDRA W. PREVIOUS SPECIMEN REJECTED DUE TO CLOTTED SPECIMEN. 01/02/251948 Performed By: #### L 100.0100 #### [facility] [address] [place], [address] RDW SD 40.1 fl Normal 35.1-43.9 [facility] Comment on above: Order Comment: REDRA W. PREVIOUS SPECIMEN REJECTED DUE TO CLOTTED SPECIMEN. 01/02/251948 Performed By: #### L 100.0100 #### [facility] [address] [place], [address] WBC (Bld) [#/Vol] 10.8 10*3/uL Normal 4.4-11.0 [facility] Comment on above: Order Comment: REDRA W. PREVIOUS SPECIMEN REJECTED DUE TO CLOTTED SPECIMEN. 01/02/251948 Performed By: #### L 100.0100 #### [facility] [address] [place], [address] Absolute Neut Normal 2.0-7.7 [facility] Comment on above: Result Comment: This specimen has been REJECTED due to Laboratory criteria: Clotted. ED-ELVIN has been notified of need of recollection. 01/02/251947 Performed By: #### M 100.678, M100.2200, L400.0001 #### [facility] [address] [place], [address] HCT Normal 37-47 [facility] Comment on above: Result Comment: This specimen has been REJECTED due to Laboratory criteria: Clotted. ED-ELVIN has been notified of need of recollection. 01/02/251947 Performed By: #### M 100.678, M100.2200, [id number] #### [facility] [address] [place], [address] HGB Normal 12.0-15.0 [facility] Comment on above: Result Comment: This specimen has been REJECTED due to Laboratory criteria: Clotted. ED-ELVIN has been notified of need of recollection. 01/02/251947 Performed By: #### M 100.678, M100.2200, L400.0001 #### [facility] [address] [place], [address] MCH Normal 27.0-32.0 [facility] Comment on above: Result Comment: This specimen has been REJECTED due to Laboratory criteria: Clotted. ED-ELVIN has been notified of need of recollection. 01/02/251947 Performed By: #### M 100.678, M100.2200, [id number] #### [facility] [address] [place], [address] MCHC Normal 32-36 [facility] Comment on above: Result Comment: This specimen has been REJECTED due to Laboratory criteria: Clotted. ED-ELVIN has been notified of need of recollection. 01/02/251947 Performed By: #### M 100.678, M100.2200, [id number] #### [facility] [address] [place], [address] MCV Normal 81-99 [facility] Comment on above: Result Comment: This specimen has been REJECTED due to Laboratory criteria: Clotted. ED-ELVIN has been notified of need of recollection. 01/02/251947 Performed By: #### M 100.678, M100.2200, [id number] #### [facility] [address] [place], [address] NEUT% Normal 47-70 [facility] Comment on above: Result Comment: This specimen has been REJECTED due to Laboratory criteria: Clotted. ED-ELVIN has been notified of need of recollection. 01/02/251947 Performed By: #### M 100.678, M100.2200, L400.0001 #### [facility] [address] [place], [address] PLT Normal 150-450 [facility] Comment on above: Result Comment: This specimen has been REJECTED due to Laboratory criteria: Clotted. ED-ELVIN has been notified of need of recollection. 01/02/251947 Performed By: #### M 100.678, M100.2200, L400.0001 #### [facility] [address] [place], [address] RBC Normal 4.2-5.4 [facility] Comment on above: Result Comment: This specimen has been REJECTED due to Laboratory criteria: Clotted. ED-ELVIN has been notified of need of recollection. 01/02/251947 Performed By: #### M 100.678, M100.2200, L400.0001 #### [facility] [address] [place], [address] RDW CV Normal 11.6-14.6 [facility] Comment on above: Result Comment: This specimen has been REJECTED due to Laboratory criteria: Clotted. ED-ELVIN has been notified of need of recollection. 01/02/251947 Performed By: #### M 100.678, M100.2200, L400.0001 #### [facility] [address] [place], [address] RDW SD Normal 35.1-43.9 [facility] Comment on above: Result Comment: This specimen has been REJECTED due to Laboratory criteria: Clotted. ED-ELVIN has been notified of need of recollection. 01/02/251947 Performed By: #### M 100.678, M100.2200, [id number] #### [facility] [address] [place], [address] WBC Normal 4.4-11.0 [facility] Comment on above: Result Comment: This specimen has been REJECTED due to Laboratory criteria: Clotted. ED-ELVIN has been notified of need of recollection. 01/02/251947 Performed By: #### M 100.678, M100.2200, [id number] #### [facility] [address] [place], [address] Comprehensive Metabolic Prof ilon 01-02-2025 Albumin [Mass/Vol] 4.5 g/dL Normal 3.5-5.0 [facility] Comment on above: Performed By: #### M 100.678, M100.2200, L400.0001 #### [facility] [address] [place], [address] Albumin/Globulin [Mass ratio] 1.3 {ratio} Normal 0.9-2.4 [facility] Comment on above: Performed By: #### M 100.678, M100.2200, L400.0001 #### [facility] [address] [place], [address] ALK PHOS 69 U/L Normal 35-104 [facility] Comment on above: Performed By: #### M 100.678, M100.2200, L400.0001 #### [facility] [address] [place], [address] ALT [Catalytic activity/Vol] 50 U/L High <=34 [facility] Comment on above: Performed By: #### M 100.678, M100.2200, L400.0001 #### [facility] [address] [place], [address] AST [Catalytic activity/Vol] 28 U/L Normal <=31 [facility] Comment on above: Performed By: #### M 100.678, M100.2200, L400.0001 #### [facility] [address] [place], [address] Bilirubin [Mass/Vol] 0.96 mg/dL Normal 0.00-1.30 [facility] Comment on above: Performed By: #### M 100.678, M100.2200, [id number] #### [facility] [address] [place], [address] BUN/CRE 13.3 RATIO Normal 10-20 [facility] Comment on above: Performed By: #### M 100.678, M100.2200, L400.0001 #### [facility] [address] [place], [address] Calcium [Mass/Vol] 9.6 mg/dL Normal 7.6-11.0 [facility] Comment on above: Performed By: #### M 100.678, M100.2200, L400.0001 #### [facility] [address] [place], [address] Chloride [Moles/Vol] 102 mmol/L Normal 98-108 [facility] Comment on above: Performed By: #### M 100.678, M100.2200, L400.0001 #### [facility] [address] [place], [address] CO2 [Moles/Vol] 23.0 mmol/L Normal 21.0-32.0 [facility] Comment on above: Performed By: #### M 100.678, M100.2200, L400.0001 #### [facility] [address] [place], [address] Creatinine [Mass/Vol] 0.93 mg/dL Normal 0.70-1.20 [facility] Comment on above: Performed By: #### M 100.678, M100.2200, L400.0001 #### [facility] [address] [place], [address] ECRCL 94.15 ml/min Normal 50-250 [facility] Comment on above: Performed By: #### M 100.678, M100.2200, L400.0001 #### [facility] [address] [place], [address] GAP 13 Normal 5-15 [facility] Comment on above: Performed By: #### M 100.678, M100.2200, L400.0001 #### [facility] [address] [place], [address] GFR/1.73 sq M.predicted among non-blacks MDRD (S/P/Bld) [Vol rate/Area] 87 mL/min/{1.73_m2} Normal >60 [facility] Comment on above: Result Comment: mL/m in/1.73m2 CKD-EPI Creatinine Equation (2020) Performed By: #### M 100.678, M100.2200, L400.0001 #### [facility] [address] [place], [address] Globulin (S) [Mass/Vol] 3.4 g/dL Normal 2.2-4.2 [facility] Comment on above: Performed By: #### M 100.678, M100.2200, L400.0001 #### [facility] [address] [place], [address] Glucose [Mass/Vol] 109 mg/dL High 70-99 [facility] Comment on above: Performed By: #### M 100.678, M100.2200, L400.0001 #### [facility] [address] [place], [address] Potassium [Moles/Vol] 3.4 mmol/L Normal 3.3-5.1 [facility] Comment on above: Performed By: #### M 100.678, M100.2200, L400.0001 #### [facility] [address] [place], [address] Sodium [Moles/Vol] 138 mmol/L Normal 133-145 [facility] Comment on above: Performed By: #### M 100.678, M100.2200, L400.0001 #### [facility] [address] [place], [address] T PROT 7.9 g/dL Normal 5.9-8.4 [facility] Comment on above: Performed By: #### M 100.678, M100.2200, L400.0001 #### [facility] [address] [place], [address] Urea nitrogen [Mass/Vol] 12 mg/dL Normal 4-19 [facility] Comment on above: Performed By: #### M 100.678, M100.2200, L400.0001 #### [facility] [address] [place], [address] Emergency Department Summary on 01-02-2025 Emergency Department Summary [facility] Medical Records Department [address] [place] [address] Emergency Department Summary 01/02/25 MR#: [id number] Acct: [id number] Name: LUZ OLIVEIRA Rep #: [id number] : 2000 24 From: Mendez Gardner DO [...] States that she tried Azo at home. [facility] Medical History Lumbar radiculopathy, acute Acute lumbar myofascial strain Blunt abdominal trauma Chest wall contusion Cervical strain, acute Concussion without loss of consciousness Crushing injury of right great toe, initial encounter Congenital ufgqbc-muyluuc-ntums reflux Home Medications ???Medication ???Instructions ???Recorded ???Last Taken ???Type ckfxehbj-hjg-Jd-FA 1 mg 1 tab PO DAILY 08/09/22 [...] (cerebral vascular accident) Mother Diabetes Surgical History [place] teeth removed Social History household members: spouse [...] following commands knew that she was at [facility] years 2024 Skin:, No rashes or [...] Respiratory Rat (more content not included)... Normal [facility] Lactic Acidon 01-02-2025 Lactate [Moles/Vol] 1.1 mmol/L Normal 0.0-2.0 [facility] Comment on above: Order Comment: Y Performed By: #### M 100.678, M100.2200, L400.0001 #### [facility] [address] [place], [place], [address] Lipaseon 01-02-2025 Lipase [Catalytic activity/Vol] 19 U/L Normal 13-75 [facility] Comment on above: Result Comment: Pletiny paez note: LIPASE revised reference range effective 23. New Lipase methodology. Expected to produce lower values than the previous assay method. NEW Reference Range: 13 - 75 U/L Performed By: #### M 100.678, M100.2200, L400.0001 #### [facility] [address] [place], [address] M100.678on 01-02-2025 M100.678 Pending SARS-CoV-2 (COVID 19) Negative INFLUENZA A Negative INFLUENZA B Negative RSV PCR Negative Normal [facility] Comment on above: Performed By: #### M 100.678, M100.2200, L400.0001 #### [facility] [address] [place], [address] Partial Thromboplast Timeon 01-02-2025 aPTT Coag (Bld) [Time] 33.7 s Normal 24.1-36.2 [facility] Comment on above: Performed By: #### M 100.678, M100.2200, L400.0001 #### [facility] [address] [place], [address] ,Serum,hCG Quali.on 01-02-2025 HCG, SERUM QUAL Negative Normal [facility] Comment on above: Performed By: #### M 100.678, M100.2200, L400.0001 #### [facility] [address] [place], [address] Prothrombin Time w/INRon INR Coag (PPP) [Relative time] 1.1 {INR} Normal [facility] Comment on above: Performed By: #### M 100.678, M100.2200, L400.0001 #### [facility] [address] [place], [address] PT Coag (PPP) [Time] 14.5 s Normal 11.7-14.9 [facility] Comment on above: Performed By: #### M 100.678, M100.2200, L400.0001 #### [facility] [address] [place], [address] Urinalysis, Completeon 01-02 EPI,SQUAMOUS 5-10 SEEN Normal 5-10 [facility] Comment on above: Order Comment: CLEAN CATCH Performed By: #### M 100.678, M100.2200, L400.0001 #### [facility] [address] [place], [address] BACTERIA 3+ /hpf Normal None Seen [facility] Comment on above: Order Comment: CLEAN CATCH Performed By: #### M 100.678, M100.2200, L400.0001 #### [facility] [address] [place], [address] RBC 5-10 SEEN Normal 0-5 [facility] Comment on above: Order Comment: CLEAN CATCH Performed By: #### M 100.678, M100.2200, L400.0001 #### [facility] [address] [place], [address] WBC >100 SEEN Normal 0-5 [facility] Comment on above: Order Comment: CLEAN CATCH Performed By: #### M 100.678, M100.2200, [id number] #### [facility] [address] [place], [address] Mucus Ql (Urine sed) 0 SEEN Normal [facility] Comment on above: Order Comment: CLEAN CATCH Performed By: #### M 100.678, M100.2200, L400.0001 #### [facility] [address] [place], [address] XR SPINE CERVICAL AP/LATon 0 02-19-2024 XR [...] AM Ordering Provider: KIRSTEN Miller [facility] ([place]) B12on 10-19-2023 Cobalamin (Vitamin B12) [Mass/Vol] 279 pg/mL Normal 211-911 [facility] ([place]) Comment on above: Performed By: #### G FR, LIPID, HFP, A1C, IBC, TSH, CBC, ANEU, FT4, FERR, ADIFF, CMP, FE, VIDH, FT3 #### [address] [address] #### FOL, B12 #### [address] [address] FOLon 10-19-2023 Folate 8.29 ng/mL Normal 5.38-24.00 [facility] ([place]) Comment on above: Performed By: #### G FR, LIPID, HFP, A1C, IBC, TSH, CBC, ANEU, FT4, FERR, ADIFF, CMP, FE, VIDH, FT3 #### [address] [address] #### FOL, B12 #### [address] [address] .Auto Diffon 10-15-2023 Basophil, Absolute 0.0 10 3/mcL Normal 0.0-0.2 [facility]) Comment on above: Performed By: #### G FR, LIPID, HFP, A1C, IBC, TSH, CBC, ANEU, FT4, FERR, ADIFF, CMP, FE, VIDH, FT3 #### [address] [address] #### FOL, B12 #### [address] [address] Basophils/100 WBC (Bld) 0.2 % Normal 0.0-2.5 [facility] ([place]) Comment on above: Performed By: #### G FR, LIPID, HFP, A1C, IBC, TSH, CBC, ANEU, FT4, FERR, ADIFF, CMP, FE, VIDH, FT3 #### [address] [address] #### FOL, B12 #### [address] [address] Eosinophil, Absolute 0.0 10 3/mcL Normal 0.0-0.4 [facility] ([place]) Comment on above: Performed By: #### G FR, LIPID, HFP, A1C, IBC, TSH, CBC, ANEU, FT4, FERR, ADIFF, CMP, FE, VIDH, FT3 #### [address] [address] #### FOL, B12 #### [address] [address] Eosinophils/100 WBC (Bld) 0.6 % Normal 0.0-7.0 [facility] ([place]) Comment on above: Performed By: #### G FR, LIPID, HFP, A1C, IBC, TSH, CBC, ANEU, FT4, FERR, ADIFF, CMP, FE, VIDH, FT3 #### [address] [address] #### FOL, B12 #### [address] [address] Lymphocyte, Absolute 1.5 10 3/mcL Normal 0.8-3.9 [facility] ([place]) Comment on above: Performed By: #### G FR, LIPID, HFP, A1C, IBC, TSH, CBC, ANEU, FT4, FERR, ADIFF, CMP, FE, VIDH, FT3 #### [address] [address] #### FOL, B12 #### [address] [address] Lymphocytes/100 WBC (Bld) 23.2 % Normal 10.0-50.0 [facility] ([place]) Comment on above: Performed By: #### G FR, LIPID, HFP, A1C, IBC, TSH, CBC, ANEU, FT4, FERR, ADIFF, CMP, FE, VIDH, FT3 #### [address] [address] #### FOL, B12 #### [address] [address] Monocyte, Absolute 0.4 10 3/mcL Normal 0.2-1.0 [facility] ([place]) Comment on above: Performed By: #### G FR, LIPID, HFP, A1C, IBC, TSH, CBC, ANEU, FT4, FERR, ADIFF, CMP, FE, VIDH, FT3 #### [address] [address] #### FOL, B12 #### [address] [address] Monocytes/100 WBC (Bld) 5.6 % Normal 1.7-13.0 [facility] ([place]) Comment on above: Performed By: #### G FR, LIPID, HFP, A1C, IBC, TSH, CBC, ANEU, FT4, FERR, ADIFF, CMP, FE, VIDH, FT3 #### [address] [address] #### FOL, B12 #### [address] [address] Neutrophils/100 WBC (Bld) 70.4 % Normal 37.0-80.0 [facility] ([place]) Comment on above: Performed By: #### G FR, LIPID, HFP, A1C, IBC, TSH, CBC, ANEU, FT4, FERR, ADIFF, CMP, FE, VIDH, FT3 #### [address] [address] #### FOL, B12 #### [address] [address] .GFRon 10-15-2023 GFR Non- 73 ml/min/1.73sqm Normal [facility] ([place]) Comment on above: Result Comment: GFR Population [...] FERR, ADIFF, CMP, FE, VIDH, FT3 #### [address] [address] #### FOL, B12 #### [address] [address] GFR 89 ml/min/1.73sqm Normal [facility] ([place]) Comment on above: Result Comment: GFR Population [...] FERR, ADIFF, CMP, FE, VIDH, FT3 #### [address] [address] #### FOL, B12 #### [address] [address] .NEUABSon 10-15-2023 Neutrophil, Absolute 4.5 10 3/mcL Normal 2.9-6.2 [facility] ([place]) Comment on above: Performed By: #### G FR, LIPID, HFP, A1C, IBC, TSH, CBC, ANEU, FT4, FERR, ADIFF, CMP, FE, VIDH, FT3 #### [address] [address] #### FOL, B12 #### [address] [address] A1Con 10-15-2023 HbA1c (Bld) [Mass fraction] 4.9 % Normal 4.3-6.4 [facility] ([place]) Comment on above: Performed By: #### G FR, LIPID, HFP, A1C, IBC, TSH, CBC, ANEU, FT4, FERR, ADIFF, CMP, FE, VIDH, FT3 #### [address] [address] #### FOL, B12 #### [place] [address] CBCon 10-15-2023 Erythrocyte distribution width (RBC) [Ratio] 14.1 % Normal 11.5-14.5 [facility] ([place]) Comment on above: Performed By: #### G FR, LIPID, HFP, A1C, IBC, TSH, CBC, ANEU, FT4, FERR, ADIFF, CMP, FE, VIDH, FT3 #### [address] [address] #### FOL, B12 #### [address] [address] Hematocrit (Bld) [Volume fraction] 42.4 % Normal 37.0-47.0 [facility] ([place]) Comment on above: Performed By: #### G FR, LIPID, HFP, A1C, IBC, TSH, CBC, ANEU, FT4, FERR, ADIFF, CMP, FE, VIDH, FT3 #### [address] [address] #### FOL, B12 #### [address] [address] Hgb 14.5 G/dL Normal 12.0-16.0 [facility] ([place]) Comment on above: Performed By: #### G FR, LIPID, HFP, A1C, IBC, TSH, CBC, ANEU, FT4, FERR, ADIFF, CMP, FE, VIDH, FT3 #### [address] [address] #### FOL, B12 #### [address] [address] MCH (RBC) [Entitic mass] 30.8 pg Normal 27.0-31.2 [facility] ([place]) Comment on above: Performed By: #### G FR, LIPID, HFP, A1C, IBC, TSH, CBC, ANEU, FT4, FERR, ADIFF, CMP, FE, VIDH, FT3 #### [address] [address] #### FOL, B12 #### [address] [address] MCHC 34.2 G/dL Normal 33.0-37.0 [facility] ([place]) Comment on above: Performed By: #### G FR, LIPID, HFP, A1C, IBC, TSH, CBC, ANEU, FT4, FERR, ADIFF, CMP, FE, VIDH, FT3 #### [address] [address] #### FOL, B12 #### [address] [address] MCV (RBC) [Entitic vol] 90.3 fL Normal 80.0-94.0 [facility] ([place]) Comment on above: Performed By: #### G FR, LIPID, HFP, A1C, IBC, TSH, CBC, ANEU, FT4, FERR, ADIFF, CMP, FE, VIDH, FT3 #### [address] [address] #### FOL, B12 #### [address] [address] Platelet 237 10 3/mcL Normal 130-400 [facility] ([place]) Comment on above: Performed By: #### G FR, LIPID, HFP, A1C, IBC, TSH, CBC, ANEU, FT4, FERR, ADIFF, CMP, FE, VIDH, FT3 #### [address] [address] #### FOL, B12 #### [address] [address] Platelet mean volume (Bld) [Entitic vol] 8.6 fL Normal 7.4-10.4 [facility] ([place]) Comment on above: Performed By: #### G FR, LIPID, HFP, A1C, IBC, TSH, CBC, ANEU, FT4, FERR, ADIFF, CMP, FE, VIDH, FT3 #### [address] [address] #### FOL, B12 #### [address] [address] RBC 4.69 10 6/mcL Normal 4.20-5.40 [facility] ([place]) Comment on above: Performed By: #### G FR, LIPID, HFP, A1C, IBC, TSH, CBC, ANEU, FT4, FERR, ADIFF, CMP, FE, VIDH, FT3 #### [address] [address] #### FOL, B12 #### [place] [address] WBC 6.4 10 3/mcL Normal 4.6-10.8 [facility] ([place]) Comment on above: Performed By: #### G FR, LIPID, HFP, A1C, IBC, TSH, CBC, ANEU, FT4, FERR, ADIFF, CMP, FE, VIDH, FT3 #### [address] [address] #### FOL, B12 #### [address] [address] CMPon 10-15-2023 BUN/Creatinine Ratio 17 ratio Normal 7-27 [facility] ([place]) Comment on above: Performed By: #### G FR, LIPID, HFP, A1C, IBC, TSH, CBC, ANEU, FT4, FERR, ADIFF, CMP, FE, VIDH, FT3 #### [address] [address] #### FOL, B12 #### [address] [address] Calcium [Mass/Vol] 9.5 mg/dL Normal 8.4-10.2 [facility] ([place]) Comment on above: Performed By: #### G FR, LIPID, HFP, A1C, IBC, TSH, CBC, ANEU, FT4, FERR, ADIFF, CMP, FE, VIDH, FT3 #### [address] [address] #### FOL, B12 #### [address] [address] Chloride [Moles/Vol] 101 mmol/L Normal 98-107 [facility] ([place]) Comment on above: Performed By: #### G FR, LIPID, HFP, A1C, IBC, TSH, CBC, ANEU, FT4, FERR, ADIFF, CMP, FE, VIDH, FT3 #### [address] [address] #### FOL, B12 #### [address] [address] CO2 [Moles/Vol] 27 mmol/L Normal 22-29 [facility] ([place]) Comment on above: Performed By: #### G FR, LIPID, HFP, A1C, IBC, TSH, CBC, ANEU, FT4, FERR, ADIFF, CMP, FE, VIDH, FT3 #### [address] [address] #### FOL, B12 #### [address] [address] Creatinine [Mass/Vol] 0.94 mg/dL Normal 0.55-1.02 [facility] ([place]) Comment on above: Performed By: #### G FR, LIPID, HFP, A1C, IBC, TSH, CBC, ANEU, FT4, FERR, ADIFF, CMP, FE, VIDH, FT3 #### [address] [address] #### FOL, B12 #### [address] [address] Electrolyte Balance 13.0 mEq/L Normal 4.0-15.0 [facility] ([place]) Comment on above: Performed By: #### G FR, LIPID, HFP, A1C, IBC, TSH, CBC, ANEU, FT4, FERR, ADIFF, CMP, FE, VIDH, FT3 #### [address] [address] #### FOL, B12 #### [address] [address] Glucose [Mass/Vol] 92 mg/dL Normal 70-105 [facility] ([place]) Comment on above: Performed By: #### G FR, LIPID, HFP, A1C, IBC, TSH, CBC, ANEU, FT4, FERR, ADIFF, CMP, FE, VIDH, FT3 #### [address] [address] #### FOL, B12 #### [address] [address] Potassium [Moles/Vol] 4.2 mmol/L Normal 3.5-5.1 [facility] ([place]) Comment on above: Performed By: #### G FR, LIPID, HFP, A1C, IBC, TSH, CBC, ANEU, FT4, FERR, ADIFF, CMP, FE, VIDH, FT3 #### [address] [address] #### FOL, B12 #### [address] [address] Sodium [Moles/Vol] 141 mmol/L Normal 136-145 [facility] ([place]) Comment on above: Performed By: #### G FR, LIPID, HFP, A1C, IBC, TSH, CBC, ANEU, FT4, FERR, ADIFF, CMP, FE, VIDH, FT3 #### [address] [address] #### FOL, B12 #### [address] [address] Urea nitrogen [Mass/Vol] 16 mg/dL Normal 7-18 [facility] ([place]) Comment on above: Performed By: #### G FR, LIPID, HFP, A1C, IBC, TSH, CBC, ANEU, FT4, FERR, ADIFF, CMP, FE, VIDH, FT3 #### [address] [address] #### FOL, B12 #### [address] [address] FEon 10-15-2023 Iron [Mass/Vol] 141 ug/dL Normal 50-170 [facility] ([place]) Comment on above: Performed By: #### G FR, LIPID, HFP, A1C, IBC, TSH, CBC, ANEU, FT4, FERR, ADIFF, CMP, FE, VIDH, FT3 #### [address] [address] #### FOL, B12 #### [address] [address] Heidi 10-15-2023 Ferritin [Mass/Vol] 60.0 ng/mL Normal 8.0-252.0 [facility] ([place]) Comment on above: Performed By: #### G FR, LIPID, HFP, A1C, IBC, TSH, CBC, ANEU, FT4, FERR, ADIFF, CMP, FE, VIDH, FT3 #### [address] [address] #### FOL, B12 #### [address] [address] FT3on 10-15-2023 Free T3 [Mass/Vol] 3.26 pg/mL Normal 2.30-4.00 [facility] ([place]) Comment on above: Performed By: #### G FR, LIPID, HFP, A1C, IBC, TSH, CBC, ANEU, FT4, FERR, ADIFF, CMP, FE, VIDH, FT3 #### [address] [address] #### FOL, B12 #### [address] [address] FT4on 10-15-2023 Free T4 [Mass/Vol] 1.15 ng/dL Normal 0.76-1.46 [facility] ([place]) Comment on above: Performed By: #### G FR, LIPID, HFP, A1C, IBC, TSH, CBC, ANEU, FT4, FERR, ADIFF, CMP, FE, VIDH, FT3 #### [address] [address] #### FOL, B12 #### [address] [address] HFPon 10-15-2023 Bili Indirect 0.4 mg/dL Normal [facility] ([place]) Comment on above: Performed By: #### G FR, LIPID, HFP, A1C, IBC, TSH, CBC, ANEU, FT4, FERR, ADIFF, CMP, FE, VIDH, FT3 #### [address] [address] #### FOL, B12 #### [address] [address] Albumin Level 4.0 G/dL Normal 3.5-5.0 [facility] ([place]) Comment on above: Performed By: #### G FR, LIPID, HFP, A1C, IBC, TSH, CBC, ANEU, FT4, FERR, ADIFF, CMP, FE, VIDH, FT3 #### [address] [address] #### FOL, B12 #### [address] [address] Albumin/Globulin [Mass ratio] 1.1 {ratio} Normal 1.1-2.5 [facility] ([place]) Comment on above: Performed By: #### G FR, LIPID, HFP, A1C, IBC, TSH, CBC, ANEU, FT4, FERR, ADIFF, CMP, FE, VIDH, FT3 #### [address] [address] #### FOL, B12 #### [address] [address] ALP [Catalytic activity/Vol] 91 U/L Normal 40-135 [facility] ([place]) Comment on above: Performed By: #### G FR, LIPID, HFP, A1C, IBC, TSH, CBC, ANEU, FT4, FERR, ADIFF, CMP, FE, VIDH, FT3 #### [address] [address] #### FOL, B12 #### [address] [address] ALT [Catalytic activity/Vol] 25 U/L Normal 14-59 [facility] ([place]) Comment on above: Performed By: #### G FR, LIPID, HFP, A1C, IBC, TSH, CBC, ANEU, FT4, FERR, ADIFF, CMP, FE, VIDH, FT3 #### [address] [address] #### FOL, B12 #### [address] [address] AST [Catalytic activity/Vol] 15 U/L Normal 10-40 [facility] ([place]) Comment on above: Performed By: #### G FR, LIPID, HFP, A1C, IBC, TSH, CBC, ANEU, FT4, FERR, ADIFF, CMP, FE, VIDH, FT3 #### [address] [address] #### FOL, B12 #### [place] [id number] Bili Direct 0.2 mg/dL Normal 0.0-0.2 [facility] ([place]) Comment on above: Result Comment: Use of this assay is not recommended for patients undergoing treatment with eltrombopag due to the potential for falsely elevated results. Performed By: #### G FR, LIPID, HFP, A1C, IBC, TSH, CBC, ANEU, FT4, FERR, ADIFF, CMP, FE, VIDH, FT3 #### [address] [address] #### FOL, B12 #### [place] [address] Bili Total 0.6 mg/dL Normal 0.2-1.0 [facility] ([place]) Comment on above: Result Comment: Use of this assay is not recommended for patients undergoing treatment with eltrombopag due to the potential for falsely elevated results. Performed By: #### G FR, LIPID, HFP, A1C, IBC, TSH, CBC, ANEU, FT4, FERR, ADIFF, CMP, FE, VIDH, FT3 #### [address] [address] #### FOL, B12 #### [address] [address] Globulin 3.7 G/dL Normal [facility] ([place]) Comment on above: Performed By: #### G FR, LIPID, HFP, A1C, IBC, TSH, CBC, ANEU, FT4, FERR, ADIFF, CMP, FE, VIDH, FT3 #### [address] [address] #### FOL, B12 #### [place] [address] Total Protein 7.7 G/dL Normal 6.4-8.2 [facility] ([place]) Comment on above: Performed By: #### G FR, LIPID, HFP, A1C, IBC, TSH, CBC, ANEU, FT4, FERR, ADIFF, CMP, FE, VIDH, FT3 #### [address] [address] #### FOL, B12 #### [place] [address] IBCon 10-15-2023 TIBC 330 mcg/dL Normal 250-450 [facility] ([place]) Comment on above: Performed By: #### G FR, LIPID, HFP, A1C, IBC, TSH, CBC, ANEU, FT4, FERR, ADIFF, CMP, FE, VIDH, FT3 #### [address] [address] #### FOL, B12 #### [place] [id number] LABORATORYOrdered By: SYSTEM SYSTEM on 10-15-2023 25-hydroxyvitamin [...] [Mass/Vol] 172 mg/dL Normal 0-200 [facility] ([place]) Comment on above: Result Comment: Chol esterol Reference Interval: Less than 200 Desirable 200-239 Borderline high risk 240 and above High risk Performed By: #### G FR, LIPID, HFP, A1C, IBC, TSH, CBC, ANEU, FT4, FERR, ADIFF, CMP, FE, VIDH, FT3 #### [address] [address] #### FOL, B12 #### [address] [address] Cholesterol in HDL [Mass/Vol] 66 mg/dL High 40-60 [facility] ([place]) Comment on above: Performed By: #### G FR, LIPID, HFP, A1C, IBC, TSH, CBC, ANEU, FT4, FERR, ADIFF, CMP, FE, VIDH, FT3 #### [address] [address] #### FOL, B12 #### [address] [address] Cholesterol in LDL [Mass/Vol] 80 mg/dL Normal 0-130 [facility] ([place]) Comment on above: Performed By: #### G FR, LIPID, HFP, A1C, IBC, TSH, CBC, ANEU, FT4, FERR, ADIFF, CMP, FE, VIDH, FT3 #### [address] [address] #### FOL, B12 #### [address] [address] Triglyceride [Mass/Vol] 132 mg/dL Normal 0-150 [facility] ([place]) Comment on above: Result Comment: Trig lyceride Reference Interval: Less than 150 Normal 150-199 Borderline high risk 200-499 High risk 500 or higher Very high risk Performed By: #### G FR, LIPID, HFP, A1C, IBC, TSH, CBC, ANEU, FT4, FERR, ADIFF, CMP, FE, VIDH, FT3 #### [address] [address] #### FOL, B12 #### [address] [address] Laboratory - Chemistry and C hemistry - [...] Qn 1.13 m[IU]/L Normal 0.36-3.74 [facility] ([place]) Comment on above: Performed By: #### G FR, LIPID, HFP, A1C, IBC, TSH, CBC, ANEU, FT4, FERR, ADIFF, CMP, FE, VIDH, FT3 #### [address] [address] #### FOL, B12 #### [place] [address] UDRUGon 10-15-2023 Amphetamine (u) Negative Normal Negative [facility] ([place]) Comment on above: Performed By: #### G FR, LIPID, HFP, A1C, IBC, TSH, CBC, ANEU, FT4, FERR, ADIFF, CMP, FE, VIDH, FT3 #### [address] [address] #### FOL, B12 #### [place] [address] Barbiturate (u) Negative Normal Negative [facility] ([place]) Comment on above: Performed By: #### G FR, LIPID, HFP, A1C, IBC, TSH, CBC, ANEU, FT4, FERR, ADIFF, CMP, FE, VIDH, FT3 #### [address] [address] #### FOL, B12 #### [place] [address] Benzodiazepine (u) Negative Normal Negative [facility] ([place]) Comment on above: Performed By: #### G FR, LIPID, HFP, A1C, IBC, TSH, CBC, ANEU, FT4, FERR, ADIFF, CMP, FE, VIDH, FT3 #### [address] [address] #### FOL, B12 #### [place] [address] Cannabinoid (u) Negative Normal Negative [facility] ([place]) Comment on above: Performed By: #### G FR, LIPID, HFP, A1C, IBC, TSH, CBC, ANEU, FT4, FERR, ADIFF, CMP, FE, VIDH, FT3 #### [address] [address] #### FOL, B12 #### [place] [address] Cocaine Ql (U) Negative Normal Negative [facility] ([place]) Comment on above: Performed By: #### G FR, LIPID, HFP, A1C, IBC, TSH, CBC, ANEU, FT4, FERR, ADIFF, CMP, FE, VIDH, FT3 #### [address] [address] #### FOL, B12 #### [place] [address] Methadone Ql (U) Negative Normal Negative [facility] ([place]) Comment on above: Performed By: #### G FR, LIPID, HFP, A1C, IBC, TSH, CBC, ANEU, FT4, FERR, ADIFF, CMP, FE, VIDH, FT3 #### [address] [address] #### FOL, B12 #### [place] [address] Opiate (u) Negative Normal Negative [facility] ([place]) Comment on above: Performed By: #### G FR, LIPID, HFP, A1C, IBC, TSH, CBC, ANEU, FT4, FERR, ADIFF, CMP, FE, VIDH, FT3 #### [address] [address] #### FOL, B12 #### [place] [address] PCP (u) Negative Normal Negative [facility] ([place]) Comment on above: Performed By: #### G FR, LIPID, HFP, A1C, IBC, TSH, CBC, ANEU, FT4, FERR, ADIFF, CMP, FE, VIDH, FT3 #### [address] [address] #### FOL, B12 #### [place] [address] Urine Drugs screened: See Below Normal [facility] ([place]) Comment on above: Result Comment: This drug [...] FERR, ADIFF, CMP, FE, VIDH, FT3 #### [address] [address] #### FOL, B12 #### [place] [address] VIDHon 10-15-2023 Vit. D 25-Hydroxy 12.2 ng/mL Normal [facility] ([place]) Comment on above: Result Comment: Inte rpretive Values Based on Total 25(OH) Vitamin D: Deficient <20 ng/mL Insufficient 20 - <30 ng/mL Sufficient 30-100 ng/mL Performed By: #### G FR, LIPID, HFP, A1C, IBC, TSH, CBC, ANEU, FT4, FERR, ADIFF, CMP, FE, VIDH, FT3 #### [address] [address] #### FOL, B12 #### [address] [address] .Auto Diffon 03-31-2023 Basophil, Absolute 0.0 10 3/mcL Normal 0.0-0.2 [facility] ([place]) Comment on above: Performed By: #### G FR, LIPID, HFP, A1C, IBC, TSH, CBC, ANEU, FT4, FERR, ADIFF, CMP, FE, VIDH, FT3 #### [address] [address] #### FOL, B12 #### [address] [address] Basophils/100 WBC (Bld) 0.1 % Normal 0.0-2.5 [facility] ([place]) Comment on above: Performed By: #### G FR, LIPID, HFP, A1C, IBC, TSH, CBC, ANEU, FT4, FERR, ADIFF, CMP, FE, VIDH, FT3 #### [address] [address] #### FOL, B12 #### [address] [address] Eosinophil, Absolute 0.0 10 3/mcL Normal 0.0-0.4 [facility] ([place]) Comment on above: Performed By: #### G FR, LIPID, HFP, A1C, IBC, TSH, CBC, ANEU, FT4, FERR, ADIFF, CMP, FE, VIDH, FT3 #### [address] [address] #### FOL, B12 #### [address] [address] Eosinophils/100 WBC (Bld) 0.0 % Normal 0.0-7.0 [facility] ([place]) Comment on above: Performed By: #### G FR, LIPID, HFP, A1C, IBC, TSH, CBC, ANEU, FT4, FERR, ADIFF, CMP, FE, VIDH, FT3 #### [address] [address] #### FOL, B12 #### [address] [address] Lymphocyte, Absolute 1.2 10 3/mcL Normal 0.8-3.9 [facility] ([place]) Comment on above: Performed By: #### G FR, LIPID, HFP, A1C, IBC, TSH, CBC, ANEU, FT4, FERR, ADIFF, CMP, FE, VIDH, FT3 #### [address] [address] #### FOL, B12 #### [address] [address] Lymphocytes/100 WBC (Bld) 11.4 % Normal 10.0-50.0 [facility] ([place]) Comment on above: Performed By: #### G FR, LIPID, HFP, A1C, IBC, TSH, CBC, ANEU, FT4, FERR, ADIFF, CMP, FE, VIDH, FT3 #### [address] [address] #### FOL, B12 #### [address] [address] Monocyte, Absolute 0.8 10 3/mcL Normal 0.2-1.0 [facility] ([place]) Comment on above: Performed By: #### G FR, LIPID, HFP, A1C, IBC, TSH, CBC, ANEU, FT4, FERR, ADIFF, CMP, FE, VIDH, FT3 #### [address] [address] #### FOL, B12 #### [address] [address] Monocytes/100 WBC (Bld) 7.6 % Normal 1.7-13.0 [facility] ([place]) Comment on above: Performed By: #### G FR, LIPID, HFP, A1C, IBC, TSH, CBC, ANEU, FT4, FERR, ADIFF, CMP, FE, VIDH, FT3 #### [address] [address] #### FOL, B12 #### [address] [address] Neutrophils/100 WBC (Bld) 80.9 % High 37.0-80.0 [facility] ([place]) Comment on above: Performed By: #### G FR, LIPID, HFP, A1C, IBC, TSH, CBC, ANEU, FT4, FERR, ADIFF, CMP, FE, VIDH, FT3 #### [address] [address] #### FOL, B12 #### [address] [address] .NEUABSon 03-31-2023 Neutrophil, Absolute 8.8 10 3/mcL High 2.9-6.2 [facility] ([place]) Comment on above: Performed By: #### G FR, LIPID, HFP, A1C, IBC, TSH, CBC, ANEU, FT4, FERR, ADIFF, CMP, FE, VIDH, FT3 #### [address] [address] #### FOL, B12 #### [address] [address] CBCon 03-31-2023 Erythrocyte distribution width (RBC) [Ratio] 13.9 % Normal 11.5-14.5 [facility] ([place]) Comment on above: Performed By: #### G FR, LIPID, HFP, A1C, IBC, TSH, CBC, ANEU, FT4, FERR, ADIFF, CMP, FE, VIDH, FT3 #### [address] [address] #### FOL, B12 #### [address] [address] Hematocrit (Bld) [Volume fraction] 33.1 % Low 37.0-47.0 [facility] ([place]) Comment on above: Performed By: #### G FR, LIPID, HFP, A1C, IBC, TSH, CBC, ANEU, FT4, FERR, ADIFF, CMP, FE, VIDH, FT3 #### [address] [address] #### FOL, B12 #### [address] [address] Hgb 11.5 G/dL Low 12.0-16.0 [facility] ([place]) Comment on above: Performed By: #### G FR, LIPID, HFP, A1C, IBC, TSH, CBC, ANEU, FT4, FERR, ADIFF, CMP, FE, VIDH, FT3 #### [address] [address] #### FOL, B12 #### [address] [address] MCH (RBC) [Entitic mass] 32.3 pg High 27.0-31.2 [facility] ([place]) Comment on above: Performed By: #### G FR, LIPID, HFP, A1C, IBC, TSH, CBC, ANEU, FT4, FERR, ADIFF, CMP, FE, VIDH, FT3 #### [address] [address] #### FOL, B12 #### [address] [address] MCHC 34.7 G/dL Normal 33.0-37.0 [facility] ([place]) Comment on above: Performed By: #### G FR, LIPID, HFP, A1C, IBC, TSH, CBC, ANEU, FT4, FERR, ADIFF, CMP, FE, VIDH, FT3 #### [address] [address] #### FOL, B12 #### [address] [address] MCV (RBC) [Entitic vol] 93.0 fL Normal 80.0-94.0 [facility] ([place]) Comment on above: Performed By: #### G FR, LIPID, HFP, A1C, IBC, TSH, CBC, ANEU, FT4, FERR, ADIFF, CMP, FE, VIDH, FT3 #### [address] [address] #### FOL, B12 #### [address] [address] Platelet 155 10 3/mcL Normal 130-400 [facility] ([place]) Comment on above: Performed By: #### G FR, LIPID, HFP, A1C, IBC, TSH, CBC, ANEU, FT4, FERR, ADIFF, CMP, FE, VIDH, FT3 #### [address] [address] #### FOL, B12 #### [address] [address] Platelet mean volume (Bld) [Entitic vol] 9.3 fL Normal 7.4-10.4 [facility] ([place]) Comment on above: Performed By: #### G FR, LIPID, HFP, A1C, IBC, TSH, CBC, ANEU, FT4, FERR, ADIFF, CMP, FE, VIDH, FT3 #### [address] [address] #### FOL, B12 #### [address] [address] RBC 3.55 10 6/mcL Low 4.20-5.40 [facility] ([place]) Comment on above: Performed By: #### G FR, LIPID, HFP, A1C, IBC, TSH, CBC, ANEU, FT4, FERR, ADIFF, CMP, FE, VIDH, FT3 #### [address] [address] #### FOL, B12 #### [address] [address] WBC 10.9 10 3/mcL High 4.6-10.8 [facility] ([place]) Comment on above: Performed By: #### G FR, LIPID, HFP, A1C, IBC, TSH, CBC, ANEU, FT4, FERR, ADIFF, CMP, FE, VIDH, FT3 #### [address] [address] #### FOL, B12 #### [place] [address] LABORATORYOrdered By: Billie Ibarra on 03-31-2023 Basophil, [...] Ql (S) Non-Reactive Normal Non-Reactive [facility] ([place]) Comment on above: Result Comment: The RPR [...] FERR, ADIFF, CMP, FE, VIDH, FT3 #### [address] [address] #### FOL, B12 #### [address] [address] .Auto Diffon 03-30-2023 Basophil, Absolute 0.0 10 3/mcL Normal 0.0-0.2 [facility] ([place]) Comment on above: Performed By: #### G FR, LIPID, HFP, A1C, IBC, TSH, CBC, ANEU, FT4, FERR, ADIFF, CMP, FE, VIDH, FT3 #### [address] [address] #### FOL, B12 #### [address] [address] Basophils/100 WBC (Bld) 0.1 % Normal 0.0-2.5 [facility] ([place]) Comment on above: Performed By: #### G FR, LIPID, HFP, A1C, IBC, TSH, CBC, ANEU, FT4, FERR, ADIFF, CMP, FE, VIDH, FT3 #### [address] [address] #### FOL, B12 #### [address] [address] Eosinophil, Absolute 0.0 10 3/mcL Normal 0.0-0.4 [facility] ([place]) Comment on above: Performed By: #### G FR, LIPID, HFP, A1C, IBC, TSH, CBC, ANEU, FT4, FERR, ADIFF, CMP, FE, VIDH, FT3 #### [address] [address] #### FOL, B12 #### [address] [address] Eosinophils/100 WBC (Bld) 0.2 % Normal 0.0-7.0 [facility] ([place]) Comment on above: Performed By: #### G FR, LIPID, HFP, A1C, IBC, TSH, CBC, ANEU, FT4, FERR, ADIFF, CMP, FE, VIDH, FT3 #### [address] [address] #### FOL, B12 #### [address] [address] Lymphocyte, Absolute 1.8 10 3/mcL Normal 0.8-3.9 [facility] ([place]) Comment on above: Performed By: #### G FR, LIPID, HFP, A1C, IBC, TSH, CBC, ANEU, FT4, FERR, ADIFF, CMP, FE, VIDH, FT3 #### [address] [address] #### FOL, B12 #### [address] [address] Lymphocytes/100 WBC (Bld) 16.8 % Normal 10.0-50.0 [facility] ([place]) Comment on above: Performed By: #### G FR, LIPID, HFP, A1C, IBC, TSH, CBC, ANEU, FT4, FERR, ADIFF, CMP, FE, VIDH, FT3 #### [address] [address] #### FOL, B12 #### [address] [address] Monocyte, Absolute 0.8 10 3/mcL Normal 0.2-1.0 [facility] ([place]) Comment on above: Performed By: #### G FR, LIPID, HFP, A1C, IBC, TSH, CBC, ANEU, FT4, FERR, ADIFF, CMP, FE, VIDH, FT3 #### [address] [address] #### FOL, B12 #### [address] [address] Monocytes/100 WBC (Bld) 7.2 % Normal 1.7-13.0 [facility] ([place]) Comment on above: Performed By: #### G FR, LIPID, HFP, A1C, IBC, TSH, CBC, ANEU, FT4, FERR, ADIFF, CMP, FE, VIDH, FT3 #### [address] [address] #### FOL, B12 #### [address] [address] Neutrophils/100 WBC (Bld) 75.7 % Normal 37.0-80.0 [facility] ([place]) Comment on above: Performed By: #### G FR, LIPID, HFP, A1C, IBC, TSH, CBC, ANEU, FT4, FERR, ADIFF, CMP, FE, VIDH, FT3 #### [address] [address] #### FOL, B12 #### [address] [address] .NEUABSon 03-30-2023 Neutrophil, Absolute 8.2 10 3/mcL High 2.9-6.2 [facility] ([place]) Comment on above: Performed By: #### G FR, LIPID, HFP, A1C, IBC, TSH, CBC, ANEU, FT4, FERR, ADIFF, CMP, FE, VIDH, FT3 #### [address] [address] #### FOL, B12 #### [address] [address] CBCon 03-30-2023 Erythrocyte distribution width (RBC) [Ratio] 13.8 % Normal 11.5-14.5 [facility] ([place]) Comment on above: Performed By: #### G FR, LIPID, HFP, A1C, IBC, TSH, CBC, ANEU, FT4, FERR, ADIFF, CMP, FE, VIDH, FT3 #### [address] [address] #### FOL, B12 #### [address] [address] Hematocrit (Bld) [Volume fraction] 37.2 % Normal 37.0-47.0 [facility] ([place]) Comment on above: Performed By: #### G FR, LIPID, HFP, A1C, IBC, TSH, CBC, ANEU, FT4, FERR, ADIFF, CMP, FE, VIDH, FT3 #### [address] [address] #### FOL, B12 #### [address] [address] Hgb 12.9 G/dL Normal 12.0-16.0 [facility] ([place]) Comment on above: Performed By: #### G FR, LIPID, HFP, A1C, IBC, TSH, CBC, ANEU, FT4, FERR, ADIFF, CMP, FE, VIDH, FT3 #### [address] [address] #### FOL, B12 #### [address] [address] MCH (RBC) [Entitic mass] 32.2 pg High 27.0-31.2 [facility] ([place]) Comment on above: Performed By: #### G FR, LIPID, HFP, A1C, IBC, TSH, CBC, ANEU, FT4, FERR, ADIFF, CMP, FE, VIDH, FT3 #### [address] [address] #### FOL, B12 #### [address] [address] MCHC 34.7 G/dL Normal 33.0-37.0 [facility] ([place]) Comment on above: Performed By: #### G FR, LIPID, HFP, A1C, IBC, TSH, CBC, ANEU, FT4, FERR, ADIFF, CMP, FE, VIDH, FT3 #### [address] [address] #### FOL, B12 #### [place] [address] MCV (RBC) [Entitic vol] 92.8 fL Normal 80.0-94.0 [facility] ([place]) Comment on above: Performed By: #### G FR, LIPID, HFP, A1C, IBC, TSH, CBC, ANEU, FT4, FERR, ADIFF, CMP, FE, VIDH, FT3 #### [place] [address] #### FOL, B12 #### [place] [address] Platelet 169 10 3/mcL Normal 130-400 [facility] ([place]) Comment on above: Performed By: #### G FR, LIPID, HFP, A1C, IBC, TSH, CBC, ANEU, FT4, FERR, ADIFF, CMP, FE, VIDH, FT3 #### [place] [address] #### FOL, B12 #### [address] [address] Platelet mean volume (Bld) [Entitic vol] 9.7 fL Normal 7.4-10.4 [facility] ([place]) Comment on above: Performed By: #### G FR, LIPID, HFP, A1C, IBC, TSH, CBC, ANEU, FT4, FERR, ADIFF, CMP, FE, VIDH, FT3 #### [place] [address] #### FOL, B12 #### [address] [address] RBC 4.01 10 6/mcL Low 4.20-5.40 [facility] ([place]) Comment on above: Performed By: #### G FR, LIPID, HFP, A1C, IBC, TSH, CBC, ANEU, FT4, FERR, ADIFF, CMP, FE, VIDH, FT3 #### [address] [address] #### FOL, B12 #### [place] [address] WBC 10.8 10 3/mcL Normal 4.6-10.8 [facility] ([place]) Comment on above: Performed By: #### G FR, LIPID, HFP, A1C, IBC, TSH, CBC, ANEU, FT4, FERR, ADIFF, CMP, FE, VIDH, FT3 #### [address] [address] #### FOL, B12 #### [place] [address] Gel ABOon 03-30-2023 ABO/Rh Interp Positive Invalid Interpretation Code [facility] ([place]) Comment on above: Performed By: #### G FR, LIPID, HFP, A1C, IBC, TSH, CBC, ANEU, FT4, FERR, ADIFF, CMP, FE, VIDH, FT3 #### [address] [address] #### FOL, B12 #### [place] [address] Gel ABSon 03-30-2023 Antibody Screen Gel Negative Normal [facility] ([place]) Comment on above: Performed By: #### G FR, LIPID, HFP, A1C, IBC, TSH, CBC, ANEU, FT4, FERR, ADIFF, CMP, FE, VIDH, FT3 #### [address] [address] #### FOL, B12 #### [place] [address] LABORATORYOrdered By: Lilia Espinoza on 03-30-2023 ABO/Rh [...] Group B Strep (PCR) Negative Normal Negative [facility] ([place]) Comment on above: Performed By: #### G BSPCR #### [address] [address] Group B Strep PCR Int Normal [facility] ([place]) Comment on above: Result Comment: Grou p [...] Below Performed By: #### G BSPCR #### [address] [address] RPRon 03-10-2023 Reagin Ab RPR Ql (S) Non-Reactive Normal Non-Reactive [facility] ([place]) Comment on above: Result Comment: The RPR [...] FERR, ADIFF, CMP, FE, VIDH, FT3 #### [address] [address] #### FOL, B12 #### [address] [address] .Auto Diffon 03-09-2023 Basophil, Absolute 0.0 10 3/mcL Normal 0.0-0.2 [facility] ([place]) Comment on above: Performed By: #### G FR, LIPID, HFP, A1C, IBC, TSH, CBC, ANEU, FT4, FERR, ADIFF, CMP, FE, VIDH, FT3 #### [address] [address] #### FOL, B12 #### [address] [address] Basophils/100 WBC (Bld) 0.2 % Normal 0.0-2.5 [facility] ([place]) Comment on above: Performed By: #### G FR, LIPID, HFP, A1C, IBC, TSH, CBC, ANEU, FT4, FERR, ADIFF, CMP, FE, VIDH, FT3 #### [address] [address] #### FOL, B12 #### [address] [address] Eosinophil, Absolute 0.0 10 3/mcL Normal 0.0-0.4 [facility] ([place]) Comment on above: Performed By: #### G FR, LIPID, HFP, A1C, IBC, TSH, CBC, ANEU, FT4, FERR, ADIFF, CMP, FE, VIDH, FT3 #### [address] [address] #### FOL, B12 #### [address] [address] Eosinophils/100 WBC (Bld) 0.3 % Normal 0.0-7.0 [facility] ([place]) Comment on above: Performed By: #### G FR, LIPID, HFP, A1C, IBC, TSH, CBC, ANEU, FT4, FERR, ADIFF, CMP, FE, VIDH, FT3 #### [address] [address] #### FOL, B12 #### [address] [address] Lymphocyte, Absolute 1.5 10 3/mcL Normal 0.8-3.9 [facility] ([place]) Comment on above: Performed By: #### G FR, LIPID, HFP, A1C, IBC, TSH, CBC, ANEU, FT4, FERR, ADIFF, CMP, FE, VIDH, FT3 #### [address] [address] #### FOL, B12 #### [address] [address] Lymphocytes/100 WBC (Bld) 15.8 % Normal 10.0-50.0 [facility] ([place]) Comment on above: Performed By: #### G FR, LIPID, HFP, A1C, IBC, TSH, CBC, ANEU, FT4, FERR, ADIFF, CMP, FE, VIDH, FT3 #### [address] [address] #### FOL, B12 #### [address] [address] Monocyte, Absolute 0.6 10 3/mcL Normal 0.2-1.0 [facility] ([place]) Comment on above: Performed By: #### G FR, LIPID, HFP, A1C, IBC, TSH, CBC, ANEU, FT4, FERR, ADIFF, CMP, FE, VIDH, FT3 #### [address] [address] #### FOL, B12 #### [address] [address] Monocytes/100 WBC (Bld) 6.6 % Normal 1.7-13.0 [facility] ([place]) Comment on above: Performed By: #### G FR, LIPID, HFP, A1C, IBC, TSH, CBC, ANEU, FT4, FERR, ADIFF, CMP, FE, VIDH, FT3 #### [address] [address] #### FOL, B12 #### [address] [address] Neutrophils/100 WBC (Bld) 77.1 % Normal 37.0-80.0 [facility] ([place]) Comment on above: Performed By: #### G FR, LIPID, HFP, A1C, IBC, TSH, CBC, ANEU, FT4, FERR, ADIFF, CMP, FE, VIDH, FT3 #### [address] [address] #### FOL, B12 #### [address] [address] .NEUABSon 03-09-2023 Neutrophil, Absolute 7.4 10 3/mcL High 2.9-6.2 [facility] ([place]) Comment on above: Performed By: #### G FR, LIPID, HFP, A1C, IBC, TSH, CBC, ANEU, FT4, FERR, ADIFF, CMP, FE, VIDH, FT3 #### [address] [address] #### FOL, B12 #### [address] [address] CBCon 03-09-2023 Erythrocyte distribution width (RBC) [Ratio] 13.9 % Normal 11.5-14.5 [facility] ([place]) Comment on above: Performed By: #### G FR, LIPID, HFP, A1C, IBC, TSH, CBC, ANEU, FT4, FERR, ADIFF, CMP, FE, VIDH, FT3 #### [address] [address] #### FOL, B12 #### [address] [address] Hematocrit (Bld) [Volume fraction] 36.3 % Low 37.0-47.0 [facility] ([place]) Comment on above: Performed By: #### G FR, LIPID, HFP, A1C, IBC, TSH, CBC, ANEU, FT4, FERR, ADIFF, CMP, FE, VIDH, FT3 #### [address] [address] #### FOL, B12 #### [address] [address] Hgb 12.6 G/dL Normal 12.0-16.0 [facility] ([place]) Comment on above: Performed By: #### G FR, LIPID, HFP, A1C, IBC, TSH, CBC, ANEU, FT4, FERR, ADIFF, CMP, FE, VIDH, FT3 #### [address] [address] #### FOL, B12 #### [address] [address] MCH (RBC) [Entitic mass] 32.4 pg High 27.0-31.2 [facility] ([place]) Comment on above: Performed By: #### G FR, LIPID, HFP, A1C, IBC, TSH, CBC, ANEU, FT4, FERR, ADIFF, CMP, FE, VIDH, FT3 #### [place] [address] #### FOL, B12 #### [place] [address] MCHC 34.7 G/dL Normal 33.0-37.0 [facility] ([place]) Comment on above: Performed By: #### G FR, LIPID, HFP, A1C, IBC, TSH, CBC, ANEU, FT4, FERR, ADIFF, CMP, FE, VIDH, FT3 #### [place] [address] #### FOL, B12 #### [address] [address] MCV (RBC) [Entitic vol] 93.3 fL Normal 80.0-94.0 [facility] ([place]) Comment on above: Performed By: #### G FR, LIPID, HFP, A1C, IBC, TSH, CBC, ANEU, FT4, FERR, ADIFF, CMP, FE, VIDH, FT3 #### [place] [id number] #### FOL, B12 #### [address] [address] Platelet 171 10 3/mcL Normal 130-400 [facility] ([place]) Comment on above: Performed By: #### G FR, LIPID, HFP, A1C, IBC, TSH, CBC, ANEU, FT4, FERR, ADIFF, CMP, FE, VIDH, FT3 #### [place] [address] #### FOL, B12 #### [address] [address] Platelet mean volume (Bld) [Entitic vol] 8.5 fL Normal 7.4-10.4 [facility] ([place]) Comment on above: Performed By: #### G FR, LIPID, HFP, A1C, IBC, TSH, CBC, ANEU, FT4, FERR, ADIFF, CMP, FE, VIDH, FT3 #### [place] [address] #### FOL, B12 #### [address] [address] RBC 3.89 10 6/mcL Low 4.20-5.40 [facility] ([place]) Comment on above: Performed By: #### G FR, LIPID, HFP, A1C, IBC, TSH, CBC, ANEU, FT4, FERR, ADIFF, CMP, FE, VIDH, FT3 #### [place] [address] #### FOL, B12 #### [place] [address] WBC 9.7 10 3/mcL Normal 4.6-10.8 [facility] ([place]) Comment on above: Performed By: #### G FR, LIPID, HFP, A1C, IBC, TSH, CBC, ANEU, FT4, FERR, ADIFF, CMP, FE, VIDH, FT3 #### [place] [address] #### FOL, B12 #### [address] [address] LABORATORYOrdered By: Isabella Eng on 03-09-2023 Group [...] 03-06-2023 Amnisure Negative Normal Negative [facility] ([place]) Comment on above: Performed By: #### G FR, LIPID, HFP, A1C, IBC, TSH, CBC, ANEU, FT4, FERR, ADIFF, CMP, FE, VIDH, FT3 #### [address] [address] #### FOL, B12 #### [address] [address] LABORATORYOrdered By: Lilia Espinoza on 03-06-2023 Ecrfi-7-Vofbcnoawvwuw .placental Ql (Vag fld) Negative (03/06/23 5:57 [...] SS CNCOon 11-12-2022 CNCO Letter Text Normal [facility] Bacteria Ur Culton 3 Bacteria identified Cx Nom (U) CULTURE, URINE: <10,000 CFU/ml Normal Urogenital Den Normal [facility] Comment on above: Performed By: #### 6 30-4 #### [facility] CLIA [id number] [address] ED NOTEon 10-29-2022 ED NOTE HNO ID: [id number] Author: Martinez Crouch RN Service: ? Author Type: Registered Nurse Type: ED Notes Filed: 10/28/2022 10:37 PM Note Text: Bed: 26-ED Expected date: Expected time: Means of arrival: Comments: triage Normal [facility] ED PROV NOTEon 10-29-2022 ED PROV NOTE HNO ID: [id number] Author: Danitza Reis DO Service: Emergency Medicine [...] BABS Medina CHRISTINA M 10/29/[address] [facility] ED PROV NOTE HNO ID: [id number] Author: Danitza Reis DO Service: Emergency Medicine [...] was dehydrated. She follows with OB at [facility] in [place]. complicated by hyperemesis gravidarum and bleeding in [...] sign, Rovsing (more content not included)... Normal [facility] EKGon 10-29-2022 Electrocardiogram Ventricular Rate : 129 BPM Atrial Rate : 129 BPM P-R Interval : 130 ms QRS Duration : 70 ms Q-T Interval : 300 ms QTC Calculation(Bazett) : 439 ms Calculated P [place] : 31 degrees Calculated R [place] : 66 degrees Calculated T [place] : -[address] & T WAVE ABNORMALITY, CONSIDER INFERIOR ISCHEMIA ST & T WAVE ABNORMALITY, CONSIDER ANTEROLATERAL ISCHEMIA ABNORMAL ECG WHEN COMPARED WITH ECG OF 31-MAY-2022 13:06, VENT. RATE HAS INCREASED BY 58 BPM T WAVE INVERSION NOW EVIDENT IN INFERIOR LEADS INVERTED T WAVES HAVE REPLACED NONSPECIFIC T WAVE ABNORMALITY IN ANTEROLATERAL LEADS Confirmed by DO REIS CHRISTINA ([id number]) on 10/29/2022 1:44:37 AM NAME : LUZ OLIVEIRA PID : [id number] : 2000 Gender : Female Race : [...] ANTEROLATERAL LEADS Confirmed by DO REIS CHRISTINA ([id number]) on 10/29/2022 1:44:37 AM Test Reason : Location : 4 : [facility] ED26 Overread By : DO REIS CHRISTINA Edited By : DO REIS CHRISTINA Referred By : , Acquired by : KASHIF JOHNSON Normal [facility] Urinalysis complete panel (U )on 10-29-2022 Bacteria LM.HPF (Urine sed) [#/Area] Few Abnormal None Seen [facility] Comment on above: Order Comment: Speci men Type: URINE SPECIMENOrdering Facility: [facility] Address: [address] [place] [address] Performed By: #### 2 4356-8 ####[facility] LABORATORYCLIA [id number] [place] [address] [place] Bilirubin Ql (U) Negative Normal Negative [facility] Comment on above: Order Comment: Speci men Type: URINE SPECIMENOrdering Facility: [facility] Address: [address] [place] [address] Performed By: #### 2 4356-8 ####[facility] LABORATORYCLIA [id number] [address] [place] Clarity (Unsp spec) Turbid Abnormal Clear [facility] Comment on above: Order Comment: Speci men Type: URINE SPECIMENOrdering Facility: [facility] Address: [address] [place] [address] Performed By: #### 2 4356-8 ####[facility] LABORATORYCLIA [id number] [address] [place] Color (U) Yellow Normal yellow [facility] Comment on above: Order Comment: Speci men Type: URINE SPECIMENOrdering Facility: [facility] Address: [address] [place] [address] Performed By: #### 2 4356-8 ####[facility] LABORATORYCLIA [id number] [address] [place] Epithelial cells LM.HPF (Urine sed) [#/Area] Few Normal [facility] Comment on above: Order Comment: Speci men Type: URINE SPECIMENOrdering Facility: [facility] Address: [address] [place] [address] Performed By: #### 2 4356-8 ####[facility] LABORATORYCLIA [id number] [address] [place] Glucose Test strip (U) [Mass/Vol] Negative Normal Trace, Negative [facility] Comment on above: Order Comment: Speci men Type: URINE SPECIMENOrdering Facility: [facility] Address: [address] [place] [address] Performed By: #### 2 4356-8 ####[facility] LABORATORYCLIA [id number] [address] STATES [facility] Hemoglobin Ql (U) 1+ Abnormal Negative, Trace [facility] Comment on above: Order Comment: Speci men Type: URINE SPECIMENOrdering Facility: [facility] Address: [address] [place] [address] Performed By: #### 2 4356-8 ####[facility] LABORATORYCLIA [id number] [address] Ketones Ql (U) 4+ Abnormal Negative, Trace [facility] Comment on above: Order Comment: Speci men Type: URINE SPECIMENOrdering Facility: [facility] Address: [address] [place] [address] Performed By: #### 2 4356-8 ####[facility] LABORATORYCLIA [id number] [address] [place] Leukocyte esterase Test strip Ql (U) 25 Misti/mL Normal Negative, 25 Misti/mL [facility] Comment on above: Order Comment: Speci men Type: URINE SPECIMENOrdering Facility: [facility] Address: [address] [place] [address] Performed By: #### 2 4356-8 ####[facility] LABORATORYCLIA [id number] [address] [place] Nitrite Ql (U) Negative Normal Negative [facility] Comment on above: Order Comment: Speci men Type: URINE SPECIMENOrdering Facility: [facility] Address: [address] [place] [address] Performed By: #### 2 4356-8 ####[facility] LABORATORYCLIA [id number] [address] [place] pH (U) 6.0 [pH] Normal 5.0-8.0 [facility] Comment on above: Order Comment: Speci men Type: URINE SPECIMENOrdering Facility: [facility] Address: [address] [place] [address] Performed By: #### 2 4356-8 ####[facility] LABORATORYCLIA [id number] [address] Protein (U) [Mass/Vol] 1+ Abnormal Trace, Negative [facility] Comment on above: Order Comment: Speci men Type: URINE SPECIMENOrdering Facility: [facility] Address: [address] [place] [address] Performed By: #### 2 4356-8 ####[facility] LABORATORYCLIA [id number] [address] RBC LM.HPF (Urine sed) [#/Area] 6-10 /HPF Abnormal 0-3 /HPF [facility] Comment on above: Order Comment: Speci men Type: URINE SPECIMENOrdering Facility: [facility] Address: [address] [place] [address] Performed By: #### 2 4356-8 ####[facility] LABORATORYCLIA [id number] [address] STATES [facility] Specific gravity (U) [Rel density] 1.029 Normal 1.005-1.030 [facility] Comment on above: Order Comment: Speci men Type: URINE SPECIMENOrdering Facility: [facility] Address: [address] [place] [address] Performed By: #### 2 4356-8 ####[facility] LABORATORYCLIA [id number] [address] Urobilinogen Ql (U) Normal Normal Negative [facility] Comment on above: Order Comment: Speci men Type: URINE SPECIMENOrdering Facility: [facility] Address: [address] [place] [address] Performed By: #### 2 4356-8 ####[facility] LABORATORYCLIA [id number] [address] [place] WBC LM.HPF (Urine sed) [#/Area] 0-5 /HPF Normal 0-5 /HPF [facility] Comment on above: Order Comment: Speci men Type: URINE SPECIMENOrdering Facility: [facility] Address: [address] [place] [address] Performed By: #### 2 4356-8 ####[facility] LABORATORYCLIA [id number] [place] [address] [place] Basic metabolic 2000 panelon 10-28-2022 Anion gap [Moles/Vol] 15 mmol/L Normal 9-18 [facility] Comment on above: Order Comment: Speci men Type: BLOOD SPECIMENOrdering Facility: [facility] Address: [address] [place] [address] Performed By: #### 2 4321-2, ####[facility] LABORATORYCLIA [id number] [place] [address] [place] Calcium [Mass/Vol] 10.1 mg/dL Normal 8.5-10.2 [facility] Comment on above: Order Comment: Speci men Type: BLOOD SPECIMENOrdering Facility: [facility] Address: [address] [place] [address] Performed By: #### 2 432-2, ####[facility] LABORATORYCLIA [id number] [place] [address] [place] Chloride [Moles/Vol] 102 mmol/L Normal 97-105 [facility] Comment on above: Order Comment: Speci men Type: BLOOD SPECIMENOrdering Facility: [facility] Address: [address] [place] [address] Performed By: #### 2 4321-2, ####[facility] LABORATORYCLIA [id number] [place] [address] [place] CO2 [Moles/Vol] 22 mmol/L Normal 22-30 [facility] Comment on above: Order Comment: Speci men Type: BLOOD SPECIMENOrdering Facility: [facility] Address: [address] [place] [address] Performed By: #### 2 4321-2, ####[facility] LABORATORYCLIA [id number] [place] [address] [place] [facility] Creatinine [Mass/Vol] 0.61 mg/dL Normal 0.58-0.96 [facility] Comment on above: Order Comment: Eloise lopez Type: BLOOD SPECIMENOrdering Facility: [facility] Address: [address] [place] [address] Performed By: #### 2 43210-12, ####[facility] HOSPITALIA [id number] [place] [address] [facility] ESTIMATED GLOMERULAR FILTRATION RATE 129 mL/min/1.73m??? Normal >=60 [facility] Comment on above: Order Comment: Eloise lopez Type: BLOOD SPECIMENOrdering Facility: [facility] Address: [address] [place] [address] Result Comment: Tierra mated Glomerular Filtration Rate [...] reflect actual GFR. Performed By: #### 2 ####[facility] HOSPITALIA [id number] [place] [address] [place] [facility] Glucose [Mass/Vol] 86 mg/dL Normal 74-99 [facility] Comment on above: Order Comment: Eloise lopez Type: BLOOD SPECIMENOrdering Facility: [facility] Address: [address] [place] [address] Result Comment: The [place] [employer] (ADA) provides guidance for cutoff [...] Standards of Medical Care in Diabetes 2016, [place] [employer]. Diabetes Care. 2016.39(Suppl 1). Performed By: #### 2 4320-2, ####[facility] LABORATORYCLIA [id number] [place] [address] [place] Potassium [Moles/Vol] 3.2 mmol/L Low 3.7-5.1 [facility] Comment on above: Order Comment: Mariposai jessica Type: BLOOD SPECIMENOrdering Facility: [facility] Address: [address] [place] [address] Performed By: #### 2 4320-11, ####[facility] LABORATORYCLIA [id number] [address] STATES OF [facility] Sodium [Moles/Vol] 139 mmol/L Normal 136-144 [facility] Comment on above: Order Comment: Eloise lopez Type: BLOOD SPECIMENOrdering Facility: [facility] Address: [address] [place] [address] Performed By: #### 2 4320-11, ####[facility] LABORATORYCLIA [id number] [address] STATES [facility] Urea nitrogen [Mass/Vol] 5 mg/dL Low 7-21 [facility] Comment on above: Order Comment: Mariposai men Type: BLOOD SPECIMENOrdering Facility: [facility] Address: [address] [place] [address] Performed By: #### 2 4320-11, ####[facility] LABORATORYCLIA [id number] [address] [place] CBC W Auto Differential pane l (Bld)on 10-28-2022 Basophils (Bld) [#/Vol] 10*3/uL Normal <0.11 [facility] Comment on above: Order Comment: Mariposai men Type: BLOOD SPECIMENOrdering Facility: [facility] Address: [address] [place] [address] Performed By: #### 5 7021-8 ####[facility] LABORATORYCLIA [id number] [address] Basophils/100 WBC (Bld) 0.1 % Normal [facility] Comment on above: Order Comment: Speci men Type: BLOOD SPECIMENOrdering Facility: [facility] Address: [address] [place] [address] Performed By: #### 5 7021-8 ####[facility] LABORATORYCLIA [id number] [address] Differential cell count method Nom (Bld) Auto Normal [facility] Comment on above: Order Comment: Speci men Type: BLOOD SPECIMENOrdering Facility: [facility] Address: [address] [place] [address] Performed By: #### 5 7021-8 ####[facility] LABORATORYCLIA [id number] [address] [place] Eosinophils (Bld) [#/Vol] 10*3/uL Normal <0.46 [facility] Comment on above: Order Comment: Speci men Type: BLOOD SPECIMENOrdering Facility: [facility] Address: [address] [place] [address] Performed By: #### 5 7021-8 ####[facility] LABORATORYCLIA [id number] [address] Eosinophils/100 WBC (Bld) 0.1 % Normal [facility] Comment on above: Order Comment: Speci men Type: BLOOD SPECIMENOrdering Facility: [facility] Address: [address] [place] [address] Performed By: #### 5 7021-8 ####[facility] LABORATORYCLIA [id number] [address] Erythrocyte distribution width (RBC) [Ratio] 13.8 % Normal 11.5-15.0 [facility] Comment on above: Order Comment: Speci men Type: BLOOD SPECIMENOrdering Facility: [facility] Address: [address] [place] [address] Performed By: #### 5 7021-8 ####[facility] LABORATORYCLIA [id number] [address] OF [facility] Hematocrit (Bld) [Volume fraction] 38.2 % Normal 36.0-46.0 [facility] Comment on above: Order Comment: Speci men Type: BLOOD SPECIMENOrdering Facility: [facility] Address: [address] [place] [address] Performed By: #### 5 7021-8 ####[facility] LABORATORYCLIA [id number] [address] [place] Hemoglobin (Bld) [Mass/Vol] 13.5 g/dL Normal 11.5-15.5 [facility] Comment on above: Order Comment: Speci men Type: BLOOD SPECIMENOrdering Facility: [facility] Address: [address] [place] [address] Performed By: #### 5 7021-8 ####[facility] LABORATORYCLIA [id number] [address] [place] Immature granulocytes (Bld) [#/Vol] 0.04 10*3/uL Normal <0.10 [facility] Comment on above: Order Comment: Speci men Type: BLOOD SPECIMENOrdering Facility: [facility] Address: [address] [place] [address] Performed By: #### 5 7021-8 ####[facility] LABORATORYCLIA [id number] [address] [place] Immature granulocytes/100 WBC (Bld) 0.5 % Normal [facility] Comment on above: Order Comment: Speci men Type: BLOOD SPECIMENOrdering Facility: [facility] Address: [address] [place] [address] Performed By: #### 5 7021-8 ####[facility] LABORATORYCLIA [id number] [address] [place] Lymphocytes (Bld) [#/Vol] 1.53 10*3/uL Normal 1.00-4.00 [facility] Comment on above: Order Comment: Speci men Type: BLOOD SPECIMENOrdering Facility: [facility] Address: [address] [place] [address] Performed By: #### 5 7021-8 ####[facility] LABORATORYCLIA [id number] [address] Lymphocytes/100 WBC (Bld) 18.8 % Normal [facility] Comment on above: Order Comment: Speci men Type: BLOOD SPECIMENOrdering Facility: [facility] Address: [address] [place] [address] Performed By: #### 5 7021-8 ####[facility] LABORATORYCLIA [id number] [address] STATES OF [facility] MCH (RBC) [Entitic mass] 31.6 pg Normal 26.0-34.0 [facility] Comment on above: Order Comment: Speci men Type: BLOOD SPECIMENOrdering Facility: [facility] Address: [address] [place] [address] Performed By: #### 5 7021-8 ####[facility] LABORATORYCLIA [id number] [address] STATES [facility] MCHC (RBC) [Mass/Vol] 35.3 g/dL Normal 30.5-36.0 [facility] Comment on above: Order Comment: Speci men Type: BLOOD SPECIMENOrdering Facility: [facility] Address: [address] [place] [address] Performed By: #### 5 7021-8 ####[facility] LABORATORYCLIA [id number] [address] [place] MCV (RBC) [Entitic vol] 89.5 fL Normal 80.0-100.0 [facility] Comment on above: Order Comment: Speci men Type: BLOOD SPECIMENOrdering Facility: [facility] Address: [address] [place] [address] Performed By: #### 5 7021-8 ####[facility] LABORATORYCLIA [id number] [address] [place] Monocytes (Bld) [#/Vol] 0.51 10*3/uL Normal <0.87 [facility] Comment on above: Order Comment: Speci men Type: BLOOD SPECIMENOrdering Facility: [facility] Address: [address] [address] Performed By: #### 5 7021-8 ####[facility] LABORATORYCLIA [id number] [address] Monocytes/100 WBC (Bld) 6.3 % Normal [facility] Comment on above: Order Comment: Speci men Type: BLOOD SPECIMENOrdering Facility: [facility] Address: [address] [place] [address] Performed By: #### 5 7021-8 ####[facility] LABORATORYCLIA [id number] [address] [place] Neutrophils (Bld) [#/Vol] 6.06 10*3/uL Normal 1.45-7.50 [facility] Comment on above: Order Comment: Speci men Type: BLOOD SPECIMENOrdering Facility: [facility] Address: [address] [place] [address] Performed By: #### 5 7021-8 ####[facility] LABORATORYCLIA [id number] [address] Neutrophils/100 WBC (Bld) 74.2 % Normal [facility] Comment on above: Order Comment: Speci men Type: BLOOD SPECIMENOrdering Facility: [facility] Address: [address] [place] [address] Performed By: #### 5 7021-8 ####[facility] LABORATORYCLIA [id number] [address] [place] Nucleated RBC (Bld) [#/Vol] 10*3/uL Normal <0.01 [facility] Comment on above: Order Comment: Speci men Type: BLOOD SPECIMENOrdering Facility: [facility] Address: [address] [place], [place] [address] Performed By: #### 5 7021-8 ####[facility] LABORATORYCLIA [id number] [address] [place] Nucleated RBC/100 WBC (Bld) [Ratio] 0.0 /[address] [facility] Comment on above: Order Comment: Speci men Type: BLOOD SPECIMENOrdering Facility: [facility] Address: [address] [place] [address] Performed By: #### 5 7021-8 ####[facility] LABORATORYCLIA [id number] [address] [place] Platelet mean volume (Bld) [Entitic vol] 10.2 fL Normal 9.0-12.7 [facility] Comment on above: Order Comment: Speci men Type: BLOOD SPECIMENOrdering Facility: [facility] Address: [address] [place] [address] Performed By: #### 5 7021-8 ####[facility] LABORATORYCLIA [id number] [address] [place] Platelets (Bld) [#/Vol] 191 10*3/uL Normal 150-400 [facility] Comment on above: Order Comment: Speci men Type: BLOOD SPECIMENOrdering Facility: [facility] Address: [address] [place] [address] Performed By: #### 5 7021-8 ####[facility] LABORATORYCLIA [id number] [place] [address] [place] RBC (Bld) [#/Vol] 4.27 10*6/uL Normal 3.90-5.20 [facility] Comment on above: Order Comment: Speci men Type: BLOOD SPECIMENOrdering Facility: [facility] Address: [address] [place] [address] Performed By: #### 5 7021-8 ####[facility] LABORATORYCLIA [id number] [address] [place] WBC (Bld) [#/Vol] 8.16 10*3/uL Normal 3.70-11.00 [facility] Comment on above: Order Comment: Speci men Type: BLOOD SPECIMENOrdering Facility: [facility] Address: [address] [place] [address] Performed By: #### 5 7021-8 ####[facility] LABORATORYCLIA [id number] [place] [address] [place] ED Triage Noteon 10-28-2022 ED Triage Note HNO ID: [id number] Author: Dax Stevenson APRN.CNP Service: Emergency Medicine [...] CBC CMP EKG Urinalysis SIGNATURE: Dax Stevenson APRN.HAND COMPOSITOR Normal [facility] Magnesium SerPl-mCncon 10-28 Magnesium [Mass/Vol] 1.8 mg/dL Normal 1.7-2.3 [facility] Comment on above: Order Comment: Speci men Type: BLOOD SPECIMENOrdering Facility: [facility] Address: [facility] [place] [address] [place] [address] Performed By: #### 2 4321-2, 52990-0 ####[facility] LABORATORYCLIA [id number] [address] [place] URINE OB DIP B/Oon 3 Glucose Ql (U) Negative Neg mg/dL [facility] Protein.monoclonal (U) [Mass/Vol] TRACE Abnormal Neg mg/dL [facility] CNCOon 08-21-2022 CNCO Letter Text Normal [facility] Bacteria Ur Culton 2 Bacteria identified Cx Nom (U) ORGANISM ID: 1 50,000-<100,000 CFU/ml Normal urogenital den Normal [facility] Comment on above: Performed By: #### 7 3752-8, 71468-3, 21973-2 #### [facility] CLIA [id number] [facility] [address] [place] C. trachomatis+N. gonorrhoea e DNA CHICHO+probe Ql (Unsp spec)on 08-19-2022 C. trachomatis DNA CHICHO+probe Ql (Unsp spec) Negative Normal Negative for Chlamydia trachomatis by amplificaton [facility] Comment on above: Order Comment: Speci men Type: SWAB Ordering Facility: [facility] Address: [address] [place] [address] Performed By: #### 3 6902-5 #### [place] [facility] CLIA [id number] [address] [place] [address] OF [place] N. gonorrhoeae DNA CHICHO+probe Ql (Unsp spec) Negative Normal Negative for Neisseria gonorrhoeae by amplification [facility] Comment on above: Order Comment: Speci men Type: SWAB Ordering Facility: [facility] Address: [address] [address] Performed By: #### 3 6902-5 #### [facility] CLIA [id number] [address] [place] [address] [place] CBC panel Auto (Bld)on 08-19 Erythrocyte distribution width (RBC) [Ratio] 12.4 % Normal 11.5-15.0 [facility] Comment on above: Order Comment: Speci men Type: BLOOD SPECIMEN Ordering Facility: [facility] Address: [address] [address] Performed By: #### 7 3752-8, 27470-6, 16650-4 #### [facility] CLIA [id number] [address] [place] [address] [place] Hematocrit (Bld) [Volume fraction] 40.5 % Normal 36.0-46.0 [facility] Comment on above: Order Comment: Speci men Type: BLOOD SPECIMEN Ordering Facility: [facility] Address: [address] Performed By: #### 7 3752-8, 81186-1, 78775-0 #### [facility] CLIA [id number] [address] [place] [address] [place] Hemoglobin (Bld) [Mass/Vol] 13.6 g/dL Normal 11.5-15.5 [facility] Comment on above: Order Comment: Speci men Type: BLOOD SPECIMEN Ordering Facility: [facility] Address: [address] Performed By: #### 7 3752-8, 04170-2, 13203-9 #### [facility] CLIA [id number] [address] [place] [address] [place] MCH (RBC) [Entitic mass] 30.8 pg Normal 26.0-34.0 [facility] Comment on above: Order Comment: Speci men Type: BLOOD SPECIMEN Ordering Facility: [facility] Address: [address] [address] Performed By: #### 7 3752-8, 56913-9, 14810-1 #### [facility] CLIA [id number] [address] [place] [address] [place] MCHC (RBC) [Mass/Vol] 33.6 g/dL Normal 30.5-36.0 [facility] Comment on above: Order Comment: Speci men Type: BLOOD SPECIMEN Ordering Facility: [facility] Address: [address] Performed By: #### 7 3752-8, 03237-7, 70150-4 #### [facility] CLIA [id number] [address] [place] [address] [place] MCV (RBC) [Entitic vol] 91.8 fL Normal 80.0-100.0 [facility] Comment on above: Order Comment: Speci men Type: BLOOD SPECIMEN Ordering Facility: [facility] Address: [address] Performed By: #### 7 3752-8, 09368-4, 60643-5 #### [facility] CLIA [id number] [address] [place] [address] [place] Nucleated RBC (Bld) [#/Vol] 10*3/uL Normal <0.01 [facility] Comment on above: Order Comment: Speci men Type: BLOOD SPECIMEN Ordering Facility: [facility] Address: [address] Performed By: #### 7 3752-8, 49159-3, 41353-2 #### [facility] CLIA [id number] [address] [place] [address] [place] Platelet mean volume (Bld) [Entitic vol] 10.5 fL Normal 9.0-12.7 [facility] Comment on above: Order Comment: Speci men Type: BLOOD SPECIMEN Ordering Facility: [facility] Address: [address] Performed By: #### 7 3752-8, 44900-8, 84133-9 #### [facility] CLIA [id number] [address] [place] [address] [place] Platelets (Bld) [#/Vol] 247 10*3/uL Normal 150-400 [facility] Comment on above: Order Comment: Speci men Type: BLOOD SPECIMEN Ordering Facility: [facility] Address: [address] Performed By: #### 7 3752-8, 30293-4, 10558-0 #### [facility] CLIA [id number] [address] [id number] [place] RBC (Bld) [#/Vol] 4.41 10*6/uL Normal 3.90-5.20 [facility] Comment on above: Order Comment: Speci men Type: BLOOD SPECIMEN Ordering Facility: [facility] Address: [address] [address] Performed By: #### 7 3752-8, 79346-9, 32318-3 #### [facility] CLIA [id number] [address] [place] [address] OF [facility] WBC (Bld) [#/Vol] 7.20 10*3/uL Normal 3.70-11.00 [facility] Comment on above: Order Comment: Speci men Type: BLOOD SPECIMEN Ordering Facility: [facility] Address: [address] [address] Performed By: #### 7 3752-8, 45992-5, 46279-2 #### [facility] CLIA [id number] [address] [place] [address] STATES OF [facility] Erythrocyte distribution width (RBC) [Ratio] 12.4 % 11.5 - 15.0 % [facility] Hematocrit (Bld) [Volume fraction] 40.5 % 36.0 - 46.0 % [facility] Hemoglobin (Bld) [Mass/Vol] 13.6 g/dL 11.5 - 15.5 g/dL [facility] MCH (RBC) [Entitic mass] 30.8 pg 26.0 - 34.0 pg [facility] MCHC (RBC) [Mass/Vol] 33.6 g/dL 30.5 - 36.0 g/dL [facility] MCV (RBC) [Entitic vol] 91.8 fL 80.0 - 100.0 fL [facility] Nucleated RBC (Bld) [#/Vol] <0.01 k/uL [facility] Platelet mean volume (Bld) [Entitic vol] 10.5 fL 9.0 - 12.7 fL [facility] Platelets (Bld) [#/Vol] 247 10*3/uL 150 - 400 k/uL [facility] RBC (Bld) [#/Vol] 4.41 10*6/uL 3.90 - 5.2 0 m/uL [facility] WBC (Bld) [#/Vol] 7.20 10*3/uL 3.70 - 11. 00 k/uL [facility] HBV surface Ab IA Ql (S)on 1 10-19-2021 HBV surface Ag Ql (S) Negative Normal Negative [facility] Comment on above: Order Comment: Speci men Type: BLOOD SPECIMEN Ordering Facility: [facility] Address: [address] [place] [address] Performed By: #### 7 3752-8, 42358-3, 24393-9 #### [facility] CLIA [id number] [address] [place] [address] [place] HCV Ab Ser Qlon 08-19-2022 HCV Ab Ql (S) Negative Normal Negative [facility] Comment on above: Order Comment: Speci men Type: BLOOD SPECIMEN Ordering Facility: [facility] Address: [address] [place] [address] Result Comment: The result suggests no evidence of active infection with Hepatitis C virus. Should recent infection be suspected, repeat testing may be considered 4-6 weeks after this draw. Performed By: #### 7 3752-8, 70464-2, 01442-7 #### [facility] CLIA [id number] [address] [place] [address] [place] [facility] OF [place] HIV 1+2 Ab IA Qlon 2 HIV 1 and 2 Ab IA.rapid Nom Normal [facility] Comment on above: Order Comment: Speci men Type: BLOOD SPECIMEN Ordering Facility: [facility] Address: [address] [place] [address] Result Comment: Test not indicated. Performed By: #### 7 3752-8, 25073-6, 89194-7 #### [facility] CLIA [id number] [address] [place] [address] OF [place] HIV 1+2 Ab+HIV1 p24 Ag IA Ql Non-Reactive Normal Nonreactive [facility] Comment on above: Order Comment: Speci men Type: BLOOD SPECIMEN Ordering Facility: [facility] Address: [address] [place] [address] Performed By: #### 7 3752-8, 01975-1, 67652-7 #### [facility] CLIA [id number] [address] [place] [address] [place] HIVINT Normal [facility] Comment on above: Order Comment: Speci men Type: BLOOD SPECIMEN Ordering Facility: [facility] Address: [address] [place] [address] Result Comment: No e vidence of HIV-1 or HIV-2 infection. Should recent infection be suspected, repeat testing may be considered 2-3 weeks after this draw. [place] Rev. Code 3701.243(E): This information has been [...] or diagnoses. Performed By: #### 7 3752-8, 13464-8, 04998-8 #### [facility] CLIA [id number] [address] [place] [address] [place] No Panel Informationon 08-19 [facility] PAP FLUID CERVICAL SCREENING on 08-19-2022 CASE REPORT Normal [facility] Comment on above: Order Comment: Speci men Type: FLUID SPECIMEN Ordering Facility: [facility] Address: [address] [place] [address] Result Comment: Gyne cologic Cytology Report Case: [id number] Authorizing Provider: Braulio Hollingsworth MD Collected: 08/19/2022 02:46 PM Ordering Location: Obstetrics/Gynecology Received: 08/20/2022 12:38 PM First Screen: Shelby Umaña, CT, ASCP Rescreen: Wandy Fraser, CT, ASCP Specimen: Pap, Nuclear Unit Operator, Screening, CERVICAL SCREENING FLUID Performed By: #### L [id number] #### [facility] CLIA [id number] [address] [place] [address] [place] CLINICAL HISTORY ABNORMAL PAP[LGSIL i n 2020 in [place] Normal [facility] Comment on above: Order Comment: Speci men Type: FLUID SPECIMEN Ordering Facility: [facility] Address: [address] [place], [place] [address] Performed By: #### L [id number] #### [facility] CLIA [id number] [address] [place] [address] [place] CYTOLOGY INTERPRETATION PAP Normal [facility] Comment on above: Order Comment: Speci men Type: FLUID SPECIMEN Ordering Facility: [facility] Address: [address] [place] [address] Result Comment: Nega tive for Intraepithelial lesion or malignancy. Performed By: #### L [id number] #### [facility] CLIA [id number] [address] [place] [address] OF [facility] FINAL DIAGNOSIS Normal [facility] Comment on above: Order Comment: Speci men Type: FLUID SPECIMEN Ordering Facility: [facility] Address: [address] [place], [place] [address] Result Comment: A - CERVICAL SCREENING FLUID Satisfactory for interpretation, Excess blood Negative for Intraepithelial lesion or malignancy. Performed By: #### L [id number] #### [facility] CLIA [id number] [address] [place] [address] [place] FINAL PERFORMING LAB Normal [facility] Comment on above: Order Comment: Speci men Type: FLUID SPECIMEN Ordering Facility: [facility] Address: [address] [place], [place] [address] Result Comment: Tech nical component, hospital pharmacy technician screening performed at [facility], [facility] [id number] CLIA# [id number] Diagnostic interpretation performed at [facility], [address] [place] [address] CLIA# [id number] Land Title Examiner: Adam Farah M.D. Performed By: #### L [id number] #### [facility] CLIA [id number] [address] [place] [address] [place] GROSS DESCRIPTION Normal [facility] Comment on above: Order Comment: Speci men Type: FLUID SPECIMEN Ordering Facility: [facility] Address: [address] [address] Result Comment: A. C ERVICAL SCREENING FLUID Glacial Acetic Acid added. Performed By: #### L [id number] #### [facility] CLIA [id number] [address] [place] [address] [place] HPV REQUESTED? Yes, Reflex HPV for ASCUS Normal [facility] Comment on above: Order Comment: Speci men Type: FLUID SPECIMEN Ordering Facility: [facility] Address: [address] [address] Performed By: #### L [id number] #### [facility] CLIA [id number] [address] [place] [address] [place] LMP 06/21/2022() Normal [facility] Comment on above: Order Comment: Speci men Type: FLUID SPECIMEN Ordering Facility: [facility] Address: [address] [address] Performed By: #### L [id number] #### [facility] CLIA [id number] [address] [place] [address] [place] PAP DISCLAIMER COMMENT The Pap Smear is a screening test for cervical cancer. False negative results occur with all screening tests, emphasizing the need for rescreening at recommended intervals, and clinical correlation. Normal [facility] Comment on above: Order Comment: Speci men Type: FLUID SPECIMEN Ordering Facility: [facility] Address: [address] [address] Performed By: #### L [id number] #### [facility] CLIA [id number] [address] [place] [address] [place] PAP LUMBER RACKER COMMENT This specimen has been analyzed by the ThinPrep Imaging System, an automated imaging and review system, which assists the laboratory in evaluating cells on ThinPrep Pap tests. Following automated imaging, selected francis from every slide are reviewed by a hospital pharmacy technician. Normal [facility] Comment on above: Order Comment: Speci men Type: FLUID SPECIMEN Ordering Facility: [facility] Address: [address] [place] [address] Performed By: #### L [id number] #### [facility] CLIA [id number] [address] [place] [address] OF [place]E RUBELLA IGG ABon 08-19-2022 RUBELLA IGG AB, QUAL Positive Normal Positive [facility] Comment on above: Order Comment: Eloise lopez Type: BLOOD SPECIMEN Ordering Facility: [facility] Address: [address] [place] [address] Result Comment: The result suggests recent or past exposure to Rubella virus or history of Rubella vaccination. Positive result may also be seen due to presence of passively-transferred antibodies. Please correlate with patient's history. Performed By: #### 7 3752-8, 53032-8, 19576-5 #### [facility] CLIA [id number] [address] STATES OF [place] Reagin and Treponema pallidu m IgG and IgM [Interp]on 08-19-2022 SYPHILIS INTERPRETATION Cannot exclude recent Treponemal infection if specimen collected within 7-10 days after appearance of suspect lesions or 2-3 weeks after an exposure. Clinical correlation is required. Normal [facility] Comment on above: Order Comment: Speci men Type: BLOOD SPECIMEN Ordering Facility: [facility] Address: [address] [place], [place] [address] Performed By: #### 7 3752-8, 83418-1, 99940-2 #### [facility] CLIA [id number] [address] [place] [address] [place] T. pallidum IgG+IgM IA Ql (S) Non-Reactive Normal Nonreactive [facility] Comment on above: Order Comment: Speci men Type: BLOOD SPECIMEN Ordering Facility: [facility] Address: [address] [place] [address] Performed By: #### 7 3752-8, 22916-5, 10811-2 #### [facility] CLIA [id number] [address] [place] [address] [place] TSH BLDon 08-19-2022 TSH Qn 1.190 m[IU]/L 0.270 - 4.200 mIU/L [facility] TSH SerPl-aCncon 08-19-2022 TSH Qn 1.190 m[IU]/L Normal 0.270-4.200 [facility] Comment on above: Order Comment: Speci men Type: BLOOD SPECIMEN Ordering Facility: [facility] Address: [address] [place] [address] Result Comment: If t he patient is , TSH reference range varies by gestational period: First Trimester (weeks 9-12): 0.180-2.990 mIU/L Second Trimester: 0.110-3.980 mIU/L Third Trimester: 0.480-4.710 mIU/L Rafiq Winston et al. A Practical Approach for the Verifications and Determination of Site- and Trimester-Specific Reference Intervals for Thyroid Function tests in . Thyroid, 2019:29:3:412-420. William Bautista, et al. 2017 Guidelines of the [place] Thy[employer] for the Diagnosis and Management of Thyroid Disease during and the . Thyroid, 2017:27:3:315-389. Performed By: #### 3 016-3 #### [facility] CLIA [id number] [address] [place] [address] [place] TYPE + SCREEN PRENATALon ABO O [facility] HIstorical Ab Scr Status Negative [facility] Rh Nom (Bld) Positive [facility] Type and Screen Expiration 08/22/2022 23:59 [facility] ABO O Normal [facility] Comment on above: Order Comment: Speci men Type: BLOOD SPECIMEN Ordering Facility: [facility] Address: [address] [place] [address] Performed By: #### T SPN #### [facility] CLIA [id number] [address] HISTORICAL AB SCR STATUS Negative Normal [facility] Comment on above: Order Comment: Speci men Type: BLOOD SPECIMEN Ordering Facility: [facility] Address: [address] [address] Performed By: #### T SPN #### [facility] CLIA [id number] [address] Rh Nom (Bld) Positive Normal [facility] Comment on above: Order Comment: Speci men Type: BLOOD SPECIMEN Ordering Facility: [facility] Address: [address] [place] [address] Performed By: #### T SPN #### [facility] CLIA [id number] [address] TYPE AND SCREEN EXPIRATION 08/22/2022 23:59 Normal [facility] Comment on above: Order Comment: Speci men Type: BLOOD SPECIMEN Ordering Facility: [facility] Address: [address] [place] [address] Performed By: #### T SPN #### [facility] CLIA [id number] [address] [place] [address] [place] URINE OB DIP B/Oon 2 Glucose Ql (U) Negative Neg mg/dL [facility] Protein.monoclonal (U) [Mass/Vol] Negative Neg mg/dL [facility] CONFIRM BLOOD TYPEon [address] [facility] Comment on above: Order Comment: Speci men Type: BLOOD SPECIMEN Ordering Facility: [facility] Address: [address] [place] [address] Performed By: #### C ONABO #### [facility] CLIA [id number] [address] OF [place]UNE Rh Nom (Bld) Positive Normal [facility] Comment on above: Order Comment: Speci men Type: BLOOD SPECIMEN Ordering Facility: [facility] Address: [address] [address] Performed By: #### C ONABO #### [facility] [place] [id number] [address] ED Triage Noteon 08-14-2022 ED Triage Note HNO ID: [id number] Author: Kaushik Justice APRN.CNP Service: Emergency Medicine [...] a week. She was previously seen at [place] [facility] where she states she had an [...] positive send OB triage SIGNATURE: Kaushik Justice APRN.HAND COMPOSITOR Normal [facility] TYPE + SCREEN PRENATALon ABO O Normal [facility] Comment on above: Order Comment: Speci men Type: BLOOD SPECIMEN Ordering Facility: [facility] Address: [address] [address] Performed By: #### T SPN #### [facility] [id number] [address] HISTORICAL AB SCR STATUS Negative Normal [facility] Comment on above: Order Comment: Speci men Type: BLOOD SPECIMEN Ordering Facility: [facility] Address: [address] Performed By: #### T SPN #### [facility] CLIA [id number] [address] Rh Nom (Bld) Positive Normal [facility] Comment on above: Order Comment: Speci men Type: BLOOD SPECIMEN Ordering Facility: [facility] Address: [address] [place] [address] Performed By: #### T SPN #### [facility] CLIA [id number] [address] TYPE AND SCREEN EXPIRATION 08/17/2022 23:[address] [facility] Comment on above: Order Comment: Speci men Type: BLOOD SPECIMEN Ordering Facility: [facility] Address: [address] [place] [address] Performed By: #### T SPN #### [facility] CLIA [id number] [address] 08-10-2022 [facility] Telephone (OBGMEM) LUZ OLIVEIRA ([id number]) 2000 F Date Time Provider Department 08/10/22 [...] See Comments Date Reviewed: 05/31/2022 Reviewed by: Lliian Noland RN - Fully Assessed Reason for [...] Status:Closed by NISA MURPHY on 11/11/22 Normal [facility] Absolute lymphocyte counton 08-09-2022 Lymphocytes Auto (Unsp spec) [#/Vol] 1.23 10*3/uL 0.83-4.51 [facility] Work Phone: Basophil percentageon 2021 Basophils/100 WBC (Bld) 0.2 % 0-1 [facility] Work Phone: Bilirubin [Mass/Vol] 0.50 mg/dL 0.20-1.00 [facility] Work Phone: Comment on above: For patients on eltr ombopag therapy, use of Dimension [place] TBIL is not recommended. Chloride [Moles/Vol] 107 mmol/L 98-107 [facility] Work Phone: Eosinophils/100 WBC (Bld) 0.3 % 0-5 [facility] Work Phone: Glucose [Mass/Vol] 122 mg/dL 74-106 [facility] Work Phone: Comment on above: Fasting Glucose resu lt from 100 to 125 mg/dL suggests IMPAIRED HOMEOSTASIS per A.D.A. criteria. Neutrophils (Bld) [#/Vol] 4.2 10*3/uL 2.0-7.7 [facility] Work Phone: Neutrophils/100 WBC (Bld) 71.9 % 47-70 [facility] Work Phone: Potassium [Moles/Vol] 3.5 mmol/L 3.5-5.1 [facility] Work Phone: Protein [Mass/Vol] 7.3 g/dL 6.4-8.2 [facility] Work Phone: Sodium [Moles/Vol] 139 mmol/L 136-145 [facility] Work Phone: WBC (Bld) [#/Vol] 5.9 10*3/uL 4.4-11.0 [facility] Work Phone: Basophil percentage 0 SEEN /hpf 0-5 [facility] Work Phone: Beta hCG serum qualon 2021 Beta HCG ( test) Ql Negative [facility] Work Phone: Comment on above: TEST is *P OSITIVE* Bilirubin Test strip Ql (U)o n 08-09-2022 Bilirubin Ql (U) Negative Negative [facility] Work Phone: Blood erythrocytes count (nu mber/volume)on 08-09-2022 RBC (Bld) [#/Vol] 4.26 10*6/uL 4.2-5.4 [facility] Work Phone: Blood hemoglobin measurement (mass/volume)on 08-09-2022 Hemoglobin (Bld) [Mass/Vol] 13.4 g/dL 12.0-15.0 [facility] Work Phone: [phone] Blood lymphocytes/100 leukoc yteson 08-09-2022 Lymphocytes/100 WBC (Bld) 21.0 % 19-41 [facility] Work Phone: [phone] Blood monocytes/100 leukocyt eson 08-09-2022 Monocytes/100 WBC (Bld) 6.3 % 0-10 [facility] Work Phone: [phone] Blood platelet mean volumeon 08-09-2022 Platelet mean volume (Bld) [Entitic vol] 10.1 fL 6.2-12.0 [facility] Work Phone: [phone] Determination of erythrocyte mean corpuscular volume (MCV)on 08-09-2022 MCV (RBC) [Entitic vol] 91.8 fL 81-99 [facility] Work Phone: Hematocrit Auto (Bld) [Volum e fraction]on 08-09-2022 Hematocrit (Bld) [Volume fraction] 39.1 % 37-47 [facility] Work Phone: [phone] Ketones Test strip Ql (U)on 08-09-2022 Ketones Ql (U) Negative Negative [facility] Work Phone: [phone] Laboratory - Chemistry and C hemistry - challengeon 08-09-2022 ALP [Catalytic activity/Vol] 56 U/L 45-117 [facility] Work Phone: ALT [Catalytic activity/Vol] 67 U/L 13-56 [facility] Work Phone: [phone] CO2 [Moles/Vol] 25.0 mmol/L 21.0-32.0 [facility] [facility] Work [facility]: Globulin (S) [Mass/Vol] 3.5 g/dL 2.2-4.2 [facility] Work Phone: [phone] Urea nitrogen/Creatinine [Mass ratio] 9.7 mg/mg 10-20 [facility] Work Phone: [phone] Laboratory - Hematology and Cell countson 08-09-2022 Erythrocyte distribution width (RBC) [Entitic vol] 42.5 fL 35.1-43.9 [facility] Work Phone: [phone] Erythrocyte distribution width (RBC) [Ratio] 12.8 % 11.6-14.6 [facility] Work Phone: [phone] Immature granulocytes/100 WBC (Bld) 0.300 % 0.0-0.9 [facility] Work Phone: [phone] Comment on above: IG% - Immature Granu locytes (promyelocytes, myelocytes and metamyelocytes) > 1% indicates that a LEFT SHIFT is Present. MCH (RBC) [Entitic mass] 31.5 pg 27.0-32.0 [facility] Work Phone: [phone] Nucleated RBC/100 WBC (Bld) [Ratio] 0 % 0-5 [facility] Work Phone: [phone] MCHC Auto (RBC) [Mass/Vol]on 08-09-2022 MCHC (RBC) [Mass/Vol] 34.3 g/dL 32-36 [facility] Work Phone: [phone] Mucus LM Ql (Urine sed)on Mucus Ql (Urine sed) 0 SEEN /hpf [facility] Work Phone: [phone] Nitrite Test strip Ql (U)on 08-09-2022 Nitrite Ql (U) Negative Negative [facility] Work Phone: [phone] Panel Informationon 08-09 Estimated Creatinine Clearance Calc 81.20 ml/min [facility] Work Phone: [phone] Estimated GFR (MDRD) Amer 111 mL/min >60 [facility] Work Phone: [phone] Comment on above: GFR Calc Estimated GFR (MDRD) Non-Af Amer 91 mL/min >60 [facility] Work Phone: Comment on above: Non- GFR Calc Platelets bldon 08-09-2022 Platelets (Bld) [#/Vol] 224 10*3/uL 150-450 [facility] Work Phone: Protein Test strip Ql (U)on 08-09-2022 Protein Ql (U) Negative Negative [facility] Work Phone: Serum or plasma albumin sabino urement (mass/volume)on 08-09-2022 Albumin [Mass/Vol] 3.8 g/dL 3.2-5.0 [facility] Work Phone: Serum or plasma albumin/glob ulin mass ratioon 08-09-2022 Albumin/Globulin [Mass ratio] 1.1 {ratio} 0.9-2.4 [facility] Work Phone: Serum or plasma calcium sabino urement (mass/volume)on 08-09-2022 Calcium [Mass/Vol] 9.2 mg/dL 8.5-10.1 [facility] Work Phone: Serum or plasma choriogonado tropin detectionon 08-09-2022 HCG ( [place] [address] mIU/mL <4 [facility] Work Phone: Comment on above: hCG levels with Gest ational AgeGestational Age hCG mIU/mL (IU/L)0.2 - 1 week 5 - 501-2 weeks 50 - 5002-3 weeks 100 - 24157-0 weeks 500 - 246219-5 weeks 1000 - 870908-9 weeks 58003 - 100,0006-8 weeks 19504 - 200,0002-3 months 28411 - 100,000 Serum or plasma creatinine m easurement (mass/volume)on 08-09-2022 Creatinine [Mass/Vol] 0.82 mg/dL 0.55-1.02 [facility] Work Phone: Comment on above: The validity of the calculated GFR & GFRAA in patients over 70 years has not been determined. Clinical correlation is essential. Serum or plasma urea nitroge n measurement (mass/volume)on 08-09-2022 Urea nitrogen [Mass/Vol] 8 mg/dL 7-18 [facility] Work Phone: Squamous epithelial cells de tection in urine sediment by light microscopyon 08-09-2022 Epithelial cells.squamous LM Ql (Urine sed) 0-5 SEEN /hpf 5-10 [facility] Work Phone: Thin prep Papanicolaou smear with manual screeningon 08-09-2022 Thin prep Papanicolaou smear with manual screening 38 U/L 15-37 [facility] Work Phone: [phone] Thin prep Papanicolaou smear with manual screening 7 5-15 [facility] Work Phone: Urine blood detectionon 07-13 RBC Ql (U) 25 /ul Negative [facility] Work Phone: RBC Ql (U) 0 SEEN /hpf 0-5 [facility] Work Phone: Urine clarityon 08-09-2022 Clarity (U) Clear Clear [facility] Work Phone: Urine color determinationon 08-09-2022 Color (U) Yellow Yellow [facility] Work Phone: Urine glucose detectionon Glucose Ql (U) Normal mg/dl Normal [facility] Work Phone: Urine leukocyte esterase det ection by dipstickon 08-09-2022 Leukocyte esterase Test strip Ql (U) 25 /ul Negative [facility] Work Phone: Urine pHon 08-09-2022 pH (U) 7.0 [pH] 5.0 - 8.0 [facility] Work Phone: Urine sediment bacteria coun t by microscopy (number/high power field)on 08-09-2022 Bacteria LM.HPF (Urine sed) [#/Area] 0 /[HPF] None Seen [facility] Work Phone: Urine specific gravity measu rementon 08-09-2022 Specific gravity (U) [Rel density] 1.010 1.002-1.030 [facility] Work Phone: Urobilinogen Auto test strip Ql (U)on 08-09-2022 Urobilinogen Ql (U) Normal mg/dl Normal [facility] Work Phone: CBCon 08-04-2022 Hematocrit (Bld) [...] vol] 9.9 fL 7.4 - 12.4 fL [facility] Comment on above: MPV is a calculated measurement using platelet volume ratio. Platelets (Bld) [#/Vol] 217 10*3/uL 140 - 440 10*3/uL [facility] RBC (Bld) [#/Vol] 4.27 10*6/uL 3.80 - 5.2 0 10*6/uL [facility] WBC (Bld) [#/Vol] 5.4 10*3/uL 3.6 - 10.7 10*3/uL [facility] Test Performed by [facility], [address] [place] [address]. [address] LAB [facility] HCG, QUANTITATIVE, on 08-04-2022 hCG Quant 3840 m[IU]/mL [facility] Comment on above: Females < 5 Values [...] or gestational trophoblastic disease. Test Performed by [facility], [address] [place] [address] LAB [facility] Hemogram 08-04-2022 Erythrocyte distribution width (RBC) [Ratio] 12.8 % Normal 11.5-14.5 [facility] Comment on above: Performed By: #### H IZAG QWNT5 #### [address] [place] [address] Hematocrit (Bld) [Volume fraction] 39.2 % Normal 35.0-47.0 [facility] Comment on above: Performed By: #### H LIONEL QWNT5 #### [address] [place] [address] Hemoglobin (Bld) [Mass/Vol] 13.4 g/dL Normal 11.7-16.0 [facility] Comment on above: Performed By: #### H EMOG QWNT5 #### [address] [place] [address] MCH (RBC) [Entitic mass] 31.4 pg Normal 26.0-34.0 [facility] Comment on above: Performed By: #### H EMOG, QWNT5 #### [address] [place] [address] MCHC 34.2 % Normal 32.0-36.0 [facility] Comment on above: Performed By: #### H EMOG, QWNT5 #### [address] [place] [address] MCV (RBC) [Entitic vol] 91.8 fL Normal 79.0-98.0 [facility] Comment on above: Performed By: #### H EMOSamuel, QWNT5 #### [facility] [address] [place] [address] Platelet mean volume (Bld) [Entitic vol] 9.9 fL Normal 7.4-12.4 [facility] Comment on above: Result Comment: MPV is a calculated measurement using platelet volume ratio. Performed By: #### H EMOG, QWNT5 #### [facility] [address] [place] [address] Platelets (Bld) [#/Vol] 217 10*3/uL Normal 140-440 [facility] Comment on above: Performed By: #### H EMOG, QWNT5 #### [facility] [address] [place] [address] RBC (Bld) [#/Vol] 4.27 10*6/uL Normal 3.80-5.20 [facility] Comment on above: Performed By: #### H EMOG, QWNT5 #### [facility] [address] [place] [address] WBC (Bld) [#/Vol] 5.4 10*3/uL Normal 3.6-10.7 [facility] Comment on above: Performed By: #### H EMOG, QWNT5 #### [facility] [address] [place] [address] GELon 08-04-2022 GEL ABO Group: O Rh, Gel: POS Antibody Screen Gel: NEG Normal [facility] Comment on above: Performed By: #### P NGL #### [facility] TYPE AND SCREENon 1 ABO Grouping O [facility] Work Phone: Rh Type Positive [facility] Work Phone: Test Performed by [facility], [address] , [place], [place] [id number] [place] [address] LAB [facility] Work Phone: US OB TRANSVAGINALon 2 022 Patient Name: LUZ OLIVEIRA Ultrasound ACCESSION EXAM DATE/TIME PROCEDURE ORDERING PROVIDER [id number] 08/04/2022 12:05 EDT [place] [id number] HARRISON Transvaginal CPT code 76494 Reason For Exam (US Transvaginal) 7 weeks [...] ALFRED Transcribed Date and Time: 08/04/2022 12:31 [facility] Silas Pickens DO - 08/04/2022 Patient Name: LUZ OLIVEIRA Ultrasound ACCESSION EXAM DATE/TIME PROCEDURE ORDERING PROVIDER [id number] 08/04/2022 12:05 EDT US MELANIA OCAMPO Transvaginal CPT code 98875 Reason For Exam (US Transvaginal) 7 weeks [...] TRANSVAGINALOrdered By : Silas Pickens on 08-04-2022 [facility] Work Phone: US Transvaginalon 08-04-2022 US Transvaginal Patient Name: LUZ OLIVEIRA Ultrasound ACCESSION EXAM DATE/TIME PROCEDURE ORDERING PROVIDER [id number] 08/04/2022 12:05 EDT [place] [id number] -AUSTYNIRAI, ANIS Transvaginal CPT code 16249 Reason For Exam (US Transvaginal) 7 weeks [...] Transcribed Date and Time: 08/04/2022 12:31 Normal [facility] hCG Quantitativeon hCG Quantitative 3840 m[IU]/mL Normal [facility] Comment on above: Result Comment: Fema [...] gestational trophoblastic disease. Performed By: #### H [facility], QWNT5 #### [facility] [address] [place] [place] [address] CNCOon 07-20-2022 CNCO Letter Text Normal [facility] Eliecer 07-09-2022 [facility] LUZ OLIVEIRA ([id number]) 2000 F Date Time Provider Department 07/09/22 [...] (FLONASE) 50 mcg/actuation nasal spray Use 1 Murphy in each nostril once daily. 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 Absolute lymphocyte counton 06-29-2022 Lymphocytes Auto (Unsp spec) [#/Vol] 1.79 10*3/uL 0.83-4.51 [facility] Work Phone: Basophil percentageon 2021 Basophil percentage 0-5 SEEN /hpf 0-5 [facility] Work Phone: Basophils/100 WBC (Bld) 0.1 % 0-1 [facility] Work Phone: Chloride [Moles/Vol] 106 mmol/L 98-107 [facility]: Eosinophils/100 WBC (Bld) 0.2 % 0-5 [facility] Work Phone: Glucose [Mass/Vol] 98 mg/dL 74-106 [facility] Work Phone: Neutrophils (Bld) [#/Vol] 6.1 10*3/uL 2.0-7.7 [facility] Work Phone: Neutrophils/100 WBC (Bld) 72.2 % 47-70 [facility] Work Phone: Potassium [Moles/Vol] 3.9 mmol/L 3.5-5.1 [facility] Work [facility]: Sodium [Moles/Vol] 142 mmol/L 136-145 [facility] Work Phone: WBC (Bld) [#/Vol] 8.5 10*3/uL 4.4-11.0 [facility] Work Phone: Beta hCG serum qualon 2021 Beta HCG ( test) Ql Negative [facility] Work Phone: Bilirubin Test strip Ql (U)o n 06-29-2022 Bilirubin Ql (U) Negative Negative [facility] Work Phone: Blood erythrocytes count (nu mber/volume)on 06-29-2022 RBC (Bld) [#/Vol] 4.44 10*6/uL 4.2-5.4 [facility] Work Phone: Blood hemoglobin measurement (mass/volume)on 06-29-2022 Hemoglobin (Bld) [Mass/Vol] 13.7 g/dL 12.0-15.0 [facility] Work Phone: Blood lymphocytes/100 leukoc yteson 06-29-2022 Lymphocytes/100 WBC (Bld) 21.2 % 19-41 [facility] Work Phone: Blood monocytes/100 leukocyt eson 06-29-2022 Monocytes/100 WBC (Bld) 5.8 % 0-10 [facility] Work Phone: [phone] Blood platelet mean volumeon 06-29-2022 Platelet mean volume (Bld) [Entitic vol] 9.9 fL 6.2-12.0 [facility] Work Phone: Determination of erythrocyte mean corpuscular volume (MCV)on 06-29-2022 MCV (RBC) [Entitic vol] 90.5 fL 81-99 [facility] Work Phone: Hematocrit Auto (Bld) [Volum e fraction]on 06-29-2022 Hematocrit (Bld) [Volume fraction] 40.2 % 37-47 [facility] Work Phone: [phone] Ketones Test strip Ql (U)on 06-29-2022 Ketones Ql (U) Negative Negative [facility] Work Phone: Laboratory - Chemistry and C hemistry - challengeon 06-29-2022 CO2 [Moles/Vol] 28.0 mmol/L 21.0-32.0 [facility] Work Phone: Urea nitrogen/Creatinine [Mass ratio] 23.1 mg/mg 10-20 [facility] Work Phone: [phone] Laboratory - Hematology and Cell countson 06-29-2022 Erythrocyte distribution width (RBC) [Entitic vol] 41.0 fL 35.1-43.9 [facility] Work Phone: [phone] Erythrocyte distribution width (RBC) [Ratio] 12.7 % 11.6-14.6 [facility] Work Phone: [phone] Immature granulocytes/100 WBC (Bld) 0.500 % 0.0-0.9 [facility] Work Phone: [phone] Comment on above: IG% - Immature Granu locytes (promyelocytes, myelocytes and metamyelocytes) > 1% indicates that a LEFT SHIFT is Present. MCH (RBC) [Entitic mass] 30.9 pg 27.0-32.0 [facility] Work Phone: Nucleated RBC/100 WBC (Bld) [Ratio] 0 % 0-5 [facility] Work Phone: MCHC Auto (RBC) [Mass/Vol]on 06-29-2022 MCHC (RBC) [Mass/Vol] 34.1 g/dL 32-36 [facility] Work Phone: Mucus LM Ql (Urine sed)on Mucus Ql (Urine sed) 0 SEEN /hpf [facility] Work Phone: Nitrite Test strip Ql (U)on 06-29-2022 Nitrite Ql (U) Negative Negative [facility] Work Phone: No Panel Informationon 06-29 Estimated Creatinine Clearance Calc 89.98 ml/min [facility] Work Phone: Estimated GFR (MDRD) Amer 126 mL/min >60 [facility] Work Phone: Comment on above: GFR Calc Estimated GFR (MDRD) Non-Af Amer 104 mL/min >60 [facility] Work Phone: Comment on above: Non- GFR Calc Platelets bldon 06-29-2022 Platelets (Bld) [#/Vol] 287 10*3/uL 150-450 [facility] Work Phone: Protein Test strip Ql (U)on 06-29-2022 Protein Ql (U) 30 mg/dl Negative [facility] Work Phone: [phone] Serum or plasma calcium sabino urement (mass/volume)on 06-29-2022 Calcium [Mass/Vol] 9.7 mg/dL 8.5-10.1 [facility] Work Phone: [phone] Serum or plasma creatinine m easurement (mass/volume)on 06-29-2022 Creatinine [Mass/Vol] 0.74 mg/dL 0.55-1.02 [facility] Work Phone: Comment on above: The validity of the calculated GFR & GFRAA in patients over 70 years has not been determined. Clinical correlation is essential. Serum or plasma urea nitroge n measurement (mass/volume)on 06-29-2022 Urea nitrogen [Mass/Vol] 17 mg/dL 7-18 [facility] Work Phone: Squamous epithelial cells de tection in urine sediment by light microscopyon 06-29-2022 Epithelial cells.squamous LM Ql (Urine sed) 0-5 SEEN /hpf 5-10 [facility] Work Phone: Thin prep Papanicolaou smear with manual screeningon 06-29-2022 Thin prep Papanicolaou smear with manual screening 8 5-15 [facility] Work Phone: Urine blood detectionon 06-11 RBC Ql (U) 25 /ul Negative [facility] Work Phone: RBC Ql (U) 0-5 SEEN /hpf 0-5 [facility] Work Phone: Urine clarityon 06-29-2022 Clarity (U) Clear Clear [facility] Work Phone: Urine color determinationon 06-29-2022 Color (U) Yellow Yellow [facility] Work Phone: Urine glucose detectionon Glucose Ql (U) Normal mg/dl Normal [facility] Work Phone: Urine leukocyte esterase det ection by dipstickon 06-29-2022 Leukocyte esterase Test strip Ql (U) 25 /ul Negative [facility] Work Phone: Urine pHon 06-29-2022 pH (U) 6.5 [pH] 5.0 - 8.0 [facility] Work Phone: Urine sediment bacteria coun t by microscopy (number/high power field)on 06-29-2022 Bacteria LM.HPF (Urine sed) [#/Area] 0 /[HPF] None Seen [facility] Work Phone: Urine specific gravity measu rementon 06-29-2022 Specific gravity (U) [Rel density] 1.010 1.002-1.030 [facility] Work Phone: Urobilinogen Auto test strip Ql (U)on 06-29-2022 Urobilinogen Ql (U) Normal mg/dl Normal [facility] Work Phone: CBC W Auto Differential pane l (Bld)on 05-31-2022 Basophils (Bld) [#/Vol] 10*3/uL Normal <0.11 [facility] Comment on above: Order Comment: Speci men Type: BLOOD SPECIMENOrdering Facility: [facility] Address: [address] [address] Performed By: #### 5 7021-8 ####[facility] LABORATORYCLIA [id number] [address] [place] Basophils/100 WBC (Bld) 0.0 % Normal [facility] Comment on above: Order Comment: Speci men Type: BLOOD SPECIMENOrdering Facility: [facility] Address: [address] [place] [address] Performed By: #### 5 7021-8 ####[facility] LABORATORYCLIA [id number] [address] [place] Differential cell count method Nom (Bld) Auto Normal [facility] Comment on above: Order Comment: Speci men Type: BLOOD SPECIMENOrdering Facility: [facility] Address: [address] [place] [address] Performed By: #### 5 7021-8 ####[facility]ORATORYCLIA [id number] [place] [address] [place] Eosinophils (Bld) [#/Vol] 10*3/uL Normal <0.46 [facility] Comment on above: Order Comment: Speci men Type: BLOOD SPECIMENOrdering Facility: [facility] Address: [address] [place] [address] Performed By: #### 5 7021-8 ####[facility]ORATORYCLIA [id number] [place] [address] [place] Eosinophils/100 WBC (Bld) 0.2 % Normal [facility] Comment on above: Order Comment: Speci men Type: BLOOD SPECIMENOrdering Facility: [facility] Address: [address] [place] [address] Performed By: #### 5 7021-8 ####[facility]ORATORYCLIA [id number] [address] Erythrocyte distribution width (RBC) [Ratio] 12.5 % Normal 11.5-15.0 [facility] Comment on above: Order Comment: Speci men Type: BLOOD SPECIMENOrdering Facility: [facility] Address: [address] [place] [address] Performed By: #### 5 7021-8 ####[facility] LABORATORYCLIA [id number] [address] Hematocrit (Bld) [Volume fraction] 38.8 % Normal 36.0-46.0 [facility] Comment on above: Order Comment: Speci men Type: BLOOD SPECIMENOrdering Facility: [facility] Address: [address] [place] [address] Performed By: #### 5 7021-8 ####[facility] LABORATORYCLIA [id number] [address] Hemoglobin (Bld) [Mass/Vol] 13.4 g/dL Normal 11.5-15.5 [facility] Comment on above: Order Comment: Speci men Type: BLOOD SPECIMENOrdering Facility: [facility] Address: [address] [place] [address] Performed By: #### 5 7021-8 ####[facility]ORATORYCLIA [id number] [address] IMMATURE GRAN % 0.2 % Normal [facility] Comment on above: Order Comment: Speci men Type: BLOOD SPECIMENOrdering Facility: [facility] Address: [address] [place] [address] Performed By: #### 5 7021-8 ####[facility] LABORATORYCLIA [id number] [place] [address] IMMATURE GRAN ABS <0.03 Normal <0.10 [facility] Comment on above: Order Comment: Speci men Type: BLOOD SPECIMENOrdering Facility: [facility] Address: [address] [place] [address] Performed By: #### 5 7021-8 ####[facility] LABORATORYCLIA [id number] [address] [facility] Lymphocytes (Bld) [#/Vol] 1.08 10*3/uL Normal 1.00-4.00 [facility] Comment on above: Order Comment: Speci men Type: BLOOD SPECIMENOrdering Facility: [facility] Address: [address] [place] [address] Performed By: #### 5 7021-8 ####[facility]ATORYCLIA [id number] [address] Lymphocytes/100 WBC (Bld) 26.3 % Normal [facility] Comment on above: Order Comment: Speci men Type: BLOOD SPECIMENOrdering Facility: [facility] Address: [address] [place] [address] Performed By: #### 5 7021-8 ####[facility] LABORATORYCLIA [id number] [address] MCH (RBC) [Entitic mass] 30.2 pg Normal 26.0-34.0 [facility] Comment on above: Order Comment: Speci men Type: BLOOD SPECIMENOrdering Facility: [facility] Address: [address] [place] [address] Performed By: #### 5 7021-8 ####[facility]ORATORYCLIA [id number] [address] MCHC (RBC) [Mass/Vol] 34.5 g/dL Normal 30.5-36.0 [facility] Comment on above: Order Comment: Speci men Type: BLOOD SPECIMENOrdering Facility: [facility] Address: [address] [place] [address] Performed By: #### 5 7021-8 ####[facility]ORATORYCLIA [id number] [address] [place] MCV (RBC) [Entitic vol] 87.6 fL Normal 80.0-100.0 [facility] Comment on above: Order Comment: Speci men Type: BLOOD SPECIMENOrdering Facility: [facility] Address: [address] [place] [address] Performed By: #### 5 7021-8 ####[facility]ORATORYCLIA [id number] [address] [place] Monocytes (Bld) [#/Vol] 0.34 10*3/uL Normal <0.87 [facility] Comment on above: Order Comment: Speci men Type: BLOOD SPECIMENOrdering Facility: [facility] Address: [address] [place] [address] Performed By: #### 5 7021-8 ####[facility]ORATORYCLIA [id number] [address] Monocytes/100 WBC (Bld) 8.3 % Normal [facility] Comment on above: Order Comment: Speci men Type: BLOOD SPECIMENOrdering Facility: [facility] Address: [address] [place] [address] Performed By: #### 5 7021-8 ####[facility]ORATORYCLIA [id number] [address] [place] Neutrophils (Bld) [#/Vol] 2.66 10*3/uL Normal 1.45-7.50 [facility] Comment on above: Order Comment: Speci men Type: BLOOD SPECIMENOrdering Facility: [facility] Address: [address] [place] [address] Performed By: #### 5 7021-8 ####[facility]ATORYCLIA [id number] [address] [place] Neutrophils/100 WBC (Bld) 65.0 % Normal [facility] Comment on above: Order Comment: Speci men Type: BLOOD SPECIMENOrdering Facility: [facility] Address: [address] Performed By: #### 5 7021-8 ####[facility]ATORYCLIA [id number] [address] Nucleated RBC (Bld) [#/Vol] 10*3/uL Normal <0.01 [facility] Comment on above: Order Comment: Speci men Type: BLOOD SPECIMENOrdering Facility: [facility] Address: [address] Performed By: #### 5 7021-8 ####[facility]ATORYCLIA [id number] [address] Nucleated RBC/100 WBC (Bld) [Ratio] 0.0 /[address] [facility] Comment on above: Order Comment: Speci men Type: BLOOD SPECIMENOrdering Facility: [facility] Address: [address] [place] [address] Performed By: #### 5 7021-8 ####[facility]ORYCLIA [id number] [address] [place] [facility] Platelet mean volume (Bld) [Entitic vol] 9.7 fL Normal 9.0-12.7 [facility] Comment on above: Order Comment: Speci men Type: BLOOD SPECIMENOrdering Facility: [facility] Address: [address] Performed By: #### 5 7021-8 ####[facility] LABORATORYCLIA [id number] [address] Platelets (Bld) [#/Vol] 178 10*3/uL Normal 150-400 [facility] Comment on above: Order Comment: Speci men Type: BLOOD SPECIMENOrdering Facility: [facility] Address: [address] [place] [address] Performed By: #### 5 7021-8 ####[facility] LABORATORYCLIA [id number] [address] [place] RBC (Bld) [#/Vol] 4.43 10*6/uL Normal 3.90-5.20 [facility] Comment on above: Order Comment: Speci men Type: BLOOD SPECIMENOrdering Facility: [facility] Address: [address] [place] [address] Performed By: #### 5 7021-8 ####[facility] LABORATORYCLIA [id number] [address] OF [facility] WBC (Bld) [#/Vol] 4.10 10*3/uL Normal 3.70-11.00 [facility] Comment on above: Order Comment: Speci men Type: BLOOD SPECIMENOrdering Facility: [facility] Address: [address] [place] [address] Performed By: #### 5 7021-8 ####[facility] LABORATORYCLIA [id number] [address] Comprehensive metabolic 2000 panelon 05-31-2022 Albumin [Mass/Vol] 4.5 g/dL Normal 3.9-4.9 [facility] Comment on above: Order Comment: Speci men Type: BLOOD SPECIMENOrdering Facility: [facility] Address: [address] [place] [address] Performed By: #### 3 040-3, 81378-8, 74423-9 ####[facility]ORATORYCLIA [id number] [address] STATES OF [facility] ALP [Catalytic activity/Vol] 60 U/L Normal 34-123 [facility] Comment on above: Order Comment: Speci men Type: BLOOD SPECIMENOrdering Facility: [facility] Address: [address] [place] [address] Performed By: #### 3 040-3, 52276-6, 06657-1 ####[facility]ORATORYCLIA [id number] [address] OF [facility] ALT With P-5'-P [Catalytic activity/Vol] 55 U/L High 7-38 [facility] Comment on above: Order Comment: Speci men Type: BLOOD SPECIMENOrdering Facility: [facility] Address: [address] [place] [address] Performed By: #### 3 040-3, , ####[facility]ORATORYCLIA [id number] [address] STATES OF [facility] Anion gap [Moles/Vol] 12 mmol/L Normal 9-18 [facility] Comment on above: Order Comment: Speci men Type: BLOOD SPECIMENOrdering Facility: [facility] Address: [address] [place] [address] Performed By: #### 3 040-3, , ####[facility] LABORATORYCLIA [id number] [place] [address] [place] AST With P-5'-P [Catalytic activity/Vol] 57 U/L High 13-35 [facility] Comment on above: Order Comment: Speci men Type: BLOOD SPECIMENOrdering Facility: [facility] Address: [address] [place] [address] Performed By: #### 3 040-3, , ####[facility] LABORATORYCLIA [id number] [place] [address] [place] Bilirubin [Mass/Vol] 0.5 mg/dL Normal 0.2-1.3 [facility] Comment on above: Order Comment: Speci men Type: BLOOD SPECIMENOrdering Facility: [facility] Address: [address] [place] [address] Performed By: #### 3 040-3, 66259-7, ####[facility]ATORYCLIA [id number] [address] STATES [place] Calcium [Mass/Vol] 8.9 mg/dL Normal 8.5-10.2 [facility] Comment on above: Order Comment: Speci men Type: BLOOD SPECIMENOrdering Facility: [facility] Address: [address] [place] [address] Performed By: #### 3 040-3, 16592-6, ####[facility] LABORATORYCLIA [id number] [place] [address] [place] Chloride [Moles/Vol] 102 mmol/L Normal 97-105 [facility] Comment on above: Order Comment: Speci men Type: BLOOD SPECIMENOrdering Facility: [facility] Address: [address] [place] [address] Performed By: #### 3 040-3, 19198-7, ####[facility]ATORYCLIA [id number] [place] [address] [place] CO2 [Moles/Vol] 25 mmol/L Normal 22-30 [facility] Comment on above: Order Comment: Speci men Type: BLOOD SPECIMENOrdering Facility: [facility] Address: [address] [place] [address] Performed By: #### 3 040-3, , ####[facility] LABORATORYCLIA [id number] [address] OF [facility] Creatinine [Mass/Vol] 0.74 mg/dL Normal 0.58-0.96 [facility] Comment on above: Order Comment: Speci men Type: BLOOD SPECIMENOrdering Facility: [facility] Address: [address] [place] [address] Performed By: #### 3 040-3, , ####[facility]ATORYCLIA [id number] [address] ESTIMATED GLOMERULAR FILTRATION RATE 117 mL/min/1.73m??? Normal >=60 [facility] Comment on above: Order Comment: Speci men Type: BLOOD SPECIMENOrdering Facility: [facility] Address: [address] [place] [address] Result Comment: Tierra mated Glomerular Filtration Rate [...] GFR. Performed By: #### 3 040-3, , ####[facility] LABORATORYCLIA [id number] [place] [address] [place] Glucose [Mass/Vol] 91 mg/dL Normal 74-99 [facility] Comment on above: Order Comment: Eloise lopez Type: BLOOD SPECIMENOrdering Facility: [facility] Address: [address] [place] [address] Result Comment: The [place] [employer] (ADA) provides guidance for cutoff [...] Standards of Medical Care in Diabetes 2016, [place] [employer]. Diabetes Care. 2016.39(Suppl 1). Performed By: #### 3 040-3, , ####[facility] LABORATORYCLIA [id number] [place] [id number] [place] Potassium [Moles/Vol] 3.6 mmol/L Low 3.7-5.1 [facility] Comment on above: Order Comment: Eloise lopez Type: BLOOD SPECIMENOrdering Facility: [facility] Address: [address] [place] [address] Performed By: #### 3 040-3, , ####[facility]ORATORYCLIA [id number] [place] [address] [place] Protein [Mass/Vol] 6.7 g/dL Normal 6.3-8.0 [facility] Comment on above: Order Comment: Speci men Type: BLOOD SPECIMENOrdering Facility: [facility] Address: [address] [place] [address] Performed By: #### 3 040-3, , ####[facility]ORATORYCLIA [id number] [address] OF [facility] Sodium [Moles/Vol] 139 mmol/L Normal 136-144 [facility] Comment on above: Order Comment: Speci men Type: BLOOD SPECIMENOrdering Facility: [facility] Address: [address] [place] [address] Performed By: #### 3 040-3, 47541-5, ####[facility]ORATORYCLIA [id number] [address] OF [place] Urea nitrogen [Mass/Vol] 7 mg/dL Normal 7-21 [facility] Comment on above: Order Comment: Speci men Type: BLOOD SPECIMENOrdering Facility: [facility] Address: [address] [place] [address] Performed By: #### 3 040-3, 57537-5, ####[facility]ORATORYCLIA [id number] [address] ED NOTEon 05-31-2022 ED NOTE HNO ID: [id number] Author: Agueda Meng RN Service: Emergency Medicine Author Type: Registered Nurse Type: ED Notes Filed: 05/31/2022 2:42 PM Note Text: Pt alert and oriented x 4, speaking in full sentences with unlabored breathing. Pt verbalizes understanding of discharge paperwork. Pt ambulated from department without difficulty. Normal [facility] ED NOTE HNO ID: [id number] Author: Agueda Meng RN Service: Emergency Medicine [...] Is at bedside at this time. Normal [facility] ED NOTE HNO ID: [id number] Author: Agueda Meng RN Service: Emergency Medicine Author Type: Registered Nurse Type: ED Notes Filed: 05/31/2022 12:14 PM Note Text: POC BG [address] [facility] ED NOTE HNO ID: [id number] Author: Agueda Meng RN Service: Emergency Medicine Author Type: Registered Nurse Type: ED Notes Filed: 05/31/2022 11:36 AM Note Text: Pt c/o weakness along with generalized illness symptoms. 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 Normal [facility] ED NOTE HNO ID: [id number] Author: Danuta Staley RN Service: ? Author Type: Registered Nurse Type: ED Notes Filed: 05/31/2022 11:04 AM Note Text: Bed: 46-ED Expected date: Expected time: Means of arrival: Comments: triage Normal [facility] ED PROV NOTEon 05-31-2022 ED PROV NOTE HNO ID: [id number] Author: Hiwot Hudson MD Service: Emergency Medicine [...] PM Hiwot Hudson MD 05/31/[address] [facility] ED PROV NOTE HNO ID: [id number] Author: Hiwot Hudson MD Service: Emergency Medicine [...] Diagnosis Date Cognitive disorder IEP per the [facility] Kidney stone [...] ED Course (more content not included)... Normal [facility] EKGon 05-31-2022 Electrocardiogram Ventricular Rate : 7 1 BPM Atrial Rate : 71 BPM P-R Interval : 118 ms QRS Duration : 84 ms Q-T Interval : 448 ms QTC Calculation(Bazett) : 486 ms Calculated P Whittier : 23 degrees Calculated R [place] : 58 degrees Calculated T [place] : 27 degrees NORMAL SINUS RHYTHM NONSPECIFIC T WAVE ABNORMALITY PROLONGED QT ABNORMAL ECG NO PREVIOUS ECGS AVAILABLE Confirmed by KAUSHIK GUADALUPE MD ([id number]) on 06/04/2022 3:38:07 AM NAME : LUZ OLIVEIRA PID : [id number] : 2000 Gender : Female Race : ORD : Procedure Date : May 31 2022 13:06:20 Edit Date : Jun 04 2022 03:38:08 Diagnosis: NORMAL SINUS RHYTHM NONSPECIFIC T WAVE ABNORMALITY PROLONGED QT ABNORMAL ECG NO PREVIOUS ECGS AVAILABLE Confirmed by KAUSHIK GUADALUPE MD ([id number]) on 06/04/2022 3:38:07 AM Test Reason : Location : 4 : [place] Overread By : KAUSHIK GUADALUPE MD Edited By : KAUSHIK GUADALUPE MD Referred By : , Acquired by : FRIEDKIRTI Normal [facility] HCG Preg Ur Qlon 05-31-2022 HCG ( test) Ql (U) Negative Normal Negative [facility] Comment on above: Order Comment: Speci men Type: URINE SPECIMENOrdering Facility: [facility] Address: [address] [place], [place] [address] Result Comment: This test is intended to aid in the early detection of . Very dilute urine samples, as indicated by a low specific gravity, may not contain event sales representative levels of hCG. This test [...] for . Performed By: #### 2 106-3 ####[facility] LABORATORYCLIA [id number] [place] [address] [place] Lipase SerPl-cCncon 05-31-20 Lipase [Catalytic activity/Vol] 17 U/L Normal 16-61 [facility] Comment on above: Order Comment: Speci men Type: BLOOD SPECIMENOrdering Facility: [facility] Address: [address] [place] [address] Performed By: #### 3 040-3, 70917-4, 09017-6 ####[facility] LABORATORYCLIA [id number] [place] [address] [place] Magnesium SerPl-mCncon 05-31 Magnesium [Mass/Vol] 1.8 mg/dL Normal 1.7-2.3 [facility] Comment on above: Order Comment: Speci men Type: BLOOD SPECIMENOrdering Facility: [facility] Address: [address] [place] [address] Performed By: #### 3 040-3, 30168-2, 81453-6 ####[facility] LABORATORYCLIA [id number] [place] [address] [place] ROUTINE FLU A/B + RSVon 08- FLUAV RNA CHICHO+probe Ql (Unsp spec) Negative Normal Negative for Influenza A by RT-PCR [facility] Comment on above: Order Comment: Speci men Type: SWAB OF INTERNAL NOSEOrdering Facility: [facility] Address: [address] [place] [address] Performed By: #### R TFRSV, 87304-7 ####[facility] LABCLIA [id number] [address] [place] FLUBV RNA CHICHO+probe Ql (Unsp spec) Negative Normal Negative for Influenza B by RT-PCR [facility] Comment on above: Order Comment: Speci men Type: SWAB OF INTERNAL NOSEOrdering Facility: [facility] Address: [address] [place] [address] Performed By: #### R TFRSV, 08542-1 ####[facility] LABCLIA [id number] [place] [address] [place] RSV A RNA CHICHO+probe Ql (Unsp spec) Negative Normal Negative for Respiratory Syncytial Virus (RSV) by PCR [facility] Comment on above: Order Comment: Speci men Type: SWAB OF INTERNAL NOSEOrdering Facility: [facility] Address: [address] [place] [address] Performed By: #### R TFRSV, 02663-2 ####[facility] LABCLIA [id number] [place] [address] [place] SARS-CoV-2 RNA Resp Ql CHICHO+p robeon 05-31-2022 SARS-CoV-2 (COVID-19) RNA CHICHO+probe Ql (Resp) SARS-CoV-2 (Agent of COVID-19) Detected by RT-PCR or equivalent method. Abnormal Not Detected [facility] Comment on above: Order Comment: Speci men Type: SWAB OF INTERNAL NOSEOrdering Facility: [facility] Address: [address] [place] [address] Result Comment: This test was developed and its performance characteristics determined by [facility]'s [facility] [place]. This test has been authorized by FDA under an Emergency Use Authorization (EUA). This test has been validated in accordance with the FDA's Guidance Document Policy for Diagnostics Testing in Laboratories Certified to Perform High Complexity Testing under CLIA prior to Emergency use Authorization for Coronavirus Disease 2019 during the Public Health Emergency issued on December 09, 2019. Test performed by [facility], [facility] [place], [address] [place] [address]. Performed By: #### R [facility], 33842-5 ####[facility] LABCLIA [id number] [address] [place] Urinalysis complete panel (U )on 05-31-2022 Bilirubin Ql (U) Negative Normal Negative [facility] Comment on above: Order Comment: Speci men Type: URINE SPECIMENOrdering Facility: [facility] Address: [address] [place] [address] Performed By: #### 2 4356-8 ####[facility] LABORATORYCLIA [id number] [address] [place] Clarity (Unsp spec) Clear Normal Clear [facility] Comment on above: Order Comment: Speci men Type: URINE SPECIMENOrdering Facility: [facility] Address: [address] [place] [address] Performed By: #### 2 4356-8 ####[facility] LABORATORYCLIA [id number] [address] [place] Color (U) Colorless Normal yellow [facility] Comment on above: Order Comment: Speci men Type: URINE SPECIMENOrdering Facility: [facility] Address: [address] [place] [address] Performed By: #### 2 4356-8 ####[facility] LABORATORYCLIA [id number] [address] Glucose Test strip (U) [Mass/Vol] Negative Normal Negative [facility] Comment on above: Order Comment: Speci men Type: URINE SPECIMENOrdering Facility: [facility] Address: [address] [place] [address] Performed By: #### 2 4356-8 ####[facility] LABORATORYCLIA [id number] [address] Hemoglobin Ql (U) Negative Normal Negative [facility] Comment on above: Order Comment: Speci men Type: URINE SPECIMENOrdering Facility: [facility] Address: [address] [place] [address] Performed By: #### 2 4356-8 ####[facility] LABORATORYCLIA [id number] [address] [place] Ketones Ql (U) 2+ Abnormal Negative [facility] Comment on above: Order Comment: Speci men Type: URINE SPECIMENOrdering Facility: [facility] Address: [address] [place] [address] Performed By: #### 2 4356-8 ####[facility] LABORATORYCLIA [id number] [address] Leukocyte esterase Test strip Ql (U) Negative Normal Negative [facility] Comment on above: Order Comment: Speci men Type: URINE SPECIMENOrdering Facility: [facility] Address: [address] [place] [address] Performed By: #### 2 4356-8 ####[facility] LABORATORYCLIA [id number] [place] [address] [place] Nitrite Ql (U) Negative Normal Negative [facility] Comment on above: Order Comment: Speci men Type: URINE SPECIMENOrdering Facility: [facility] Address: [address] [place] [address] Performed By: #### 2 4356-8 ####[facility] LABORATORYCLIA [id number] [address] STATES [facility] pH (U) 7.5 [pH] Normal 5.0-8.0 [facility] Comment on above: Order Comment: Speci men Type: URINE SPECIMENOrdering Facility: [facility] Address: [address] [place] [address] Performed By: #### 2 4356-8 ####[facility] LABORATORYCLIA [id number] [address] STATES [facility] Protein (U) [Mass/Vol] Negative Normal Negative [facility] Comment on above: Order Comment: Speci men Type: URINE SPECIMENOrdering Facility: [facility] Address: [address] [place] [address] Performed By: #### 2 4356-8 ####[facility] LABORATORYCLIA [id number] [address] [place] RBC LM.HPF (Urine sed) [#/Area] 0-3 /HPF Normal 0-3 /HPF [facility] Comment on above: Order Comment: Speci men Type: URINE SPECIMENOrdering Facility: [facility] Address: [address] [place] [address] Performed By: #### 2 4356-8 ####[facility] LABORATORYCLIA [id number] [address] Urobilinogen Ql (U) Normal Normal Negative [facility] Comment on above: Order Comment: Speci men Type: URINE SPECIMENOrdering Facility: [facility] Address: [address] [place] [address] Performed By: #### 2 4356-8 ####[facility] LABORATORYCLIA [id number] [address] [place] WBC LM.HPF (Urine sed) [#/Area] 0-5 /HPF Normal 0-5 /HPF [facility] Comment on above: Order Comment: Speci men Type: URINE SPECIMENOrdering Facility: [facility] Address: [address] [place] [address] Performed By: #### 2 4356-8 ####[facility] LABORATORYCLIA [id number] [address] Urinalysis complete pnl Uron 05-31-2022 Specific gravity (U) [Rel density] 1.005 Normal 1.005-1.030 [facility] Comment on above: Order Comment: Speci men Type: URINE SPECIMENOrdering Facility: [facility] Address: [address] [place] [address] Performed By: #### 2 4356-8 ####[facility] LABORATORYCLIA [id number] [address] Result Comment: If s pecific gravity is <1.005 then results may be falsely negative. Serum HCG is recommended. Performed By: #### 2 106-3 ####[facility] LABORATORYCLIA [id number] [address] ALLIED HEALTHon 12-31-2021 ALLIED HEALTH HNO ID: [id number] Author: RT Tireney(R) Service: Radiology Author Type: Log Rider Type: Allied Health Filed: 12/31/2021 7:25 PM [...] December 31, 2021 TIME: 7:[address] [facility] Bacteria Ur Culton 2 Bacteria identified Cx Nom (U) CULTURE, URINE: Three or more urogenital den organisms. No predominating uropathogen. Recollect if clinically indicated. Normal [facility] Comment on above: Performed By: #### 6 30-4 #### [facility] CLIA [id number] [address] STATES OF [facility] CBC W Auto Differential pane l (Bld)on 12-31-2021 Basophils (Bld) [#/Vol] 10*3/uL Normal <0.11 [facility] Comment on above: Order Comment: Speci men Type: BLOOD SPECIMENOrdering Facility: [facility] Address: [address] [place] [address] [place] [address] Performed By: #### 5 7021-8 ####[facility] LABCLIA [id number] [address] STATES OF [facility] Basophils/100 WBC (Bld) 0.1 % Normal [facility] Comment on above: Order Comment: Speci men Type: BLOOD SPECIMENOrdering Facility: [facility] Address: [address] [place] [address] Performed By: #### 5 7021-8 ####[facility] LABCLIA [id number] [facility] [place] [address] [facility] Differential cell count method Nom (Bld) Auto Normal [facility] Comment on above: Order Comment: Speci men Type: BLOOD SPECIMENOrdering Facility: [facility] Address: [address] [place] [address] Performed By: #### 5 7021-8 ####[facility] LABCLIA [id number] [facility] [place] [address] [facility] Eosinophils (Bld) [#/Vol] 0.03 10*3/uL Normal <0.46 [facility] Comment on above: Order Comment: Speci men Type: BLOOD SPECIMENOrdering Facility: [facility] Address: [address] [place] [address] Performed By: #### 5 7021-8 ####[facility] LABCLIA [id number] [facility], [facility] Eosinophils/100 WBC (Bld) 0.3 % Normal [facility] Comment on above: Order Comment: Speci men Type: BLOOD SPECIMENOrdering Facility: [facility] Address: [address] [place] [address] Performed By: #### 5 7021-8 ####[facility] LABCLIA [id number] [place] [address] [facility] [place] Erythrocyte distribution width (RBC) [Ratio] 12.0 % Normal 11.5-15.0 [facility] Comment on above: Order Comment: Speci men Type: BLOOD SPECIMENOrdering Facility: [facility] Address: [address] [place] [address] Performed By: #### 5 7021-8 ####[facility] LABCLIA [id number] [facility] [place] [address] [place] Hematocrit (Bld) [Volume fraction] 40.3 % Normal 36.0-46.0 [facility] Comment on above: Order Comment: Speci men Type: BLOOD SPECIMENOrdering Facility: [facility] Address: [address] [place] [address] Performed By: #### 5 7021-8 ####[facility] LABCLIA [id number] [facility] [place] [address] [place] Hemoglobin (Bld) [Mass/Vol] 13.8 g/dL Normal 11.5-15.5 [facility] Comment on above: Order Comment: Speci men Type: BLOOD SPECIMENOrdering Facility: [facility] Address: [address] [place] [address] Performed By: #### 5 7021-8 ####[facility] [employer] LABCLIA [id number] [facility] [place] [address] [place] Lymphocytes (Bld) [#/Vol] 1.98 10*3/uL Normal 1.00-4.00 [facility] Comment on above: Order Comment: Speci men Type: BLOOD SPECIMENOrdering Facility: [facility] [facility] Address: [address] [place] [address] Performed By: #### 5 7021-8 ####[facility] [employer] LABCLIA [id number] [place] [address] [place] Lymphocytes/100 WBC (Bld) 20.3 % Normal [facility] Comment on above: Order Comment: Speci men Type: BLOOD SPECIMENOrdering Facility: [facility] Address: [address] [place] [address] Performed By: #### 5 7021-8 ####[facility] [employer] LABCLIA [id number] [place] [address] [place] MCH (RBC) [Entitic mass] 30.7 pg Normal 26.0-34.0 [facility] Comment on above: Order Comment: Speci men Type: BLOOD SPECIMENOrdering Facility: [facility] Address: [address] [place] [address] Performed By: #### 5 7021-8 ####[facility] LABCLIA [id number] [facility] [place] [place] [address] [place] MCHC (RBC) [Mass/Vol] 34.2 g/dL Normal 30.5-36.0 [facility] Comment on above: Order Comment: Speci men Type: BLOOD SPECIMENOrdering Facility: [facility] Address: [address] [place] [address] Performed By: #### 5 7021-8 ####[facility] LABCLIA [id number] [place] [address] [place] MCV (RBC) [Entitic vol] 89.6 fL Normal 80.0-100.0 [facility] Comment on above: Order Comment: Speci men Type: BLOOD SPECIMENOrdering Facility: [facility] Address: [address] [place] [address] Performed By: #### 5 7021-8 ####[facility] LABCLIA [id number] [facility], [address] Monocytes (Bld) [#/Vol] 0.70 10*3/uL Normal <0.87 [facility] Comment on above: Order Comment: Speci men Type: BLOOD SPECIMENOrdering Facility: [facility] Address: [address] [place] [address] Performed By: #### 5 7021-8 ####[facility] BATH LABCLIA [id number] [facility], [facility] Monocytes/100 WBC (Bld) 7.2 % Normal [facility] Comment on above: Order Comment: Speci men Type: BLOOD SPECIMENOrdering Facility: [facility] Address: [address] [place] [address] Performed By: #### 5 7021-8 ####[facility] LABCLIA [id number] [facility] [place] [address] [facility] [place] Neutrophils (Bld) [#/Vol] 7.02 10*3/uL Normal 1.45-7.50 [facility] Comment on above: Order Comment: Speci men Type: BLOOD SPECIMENOrdering Facility: [facility] Address: [address] [place] [address] Performed By: #### 5 7021-8 ####[facility] LABCLIA [id number] [place] [address] [place] Neutrophils/100 WBC (Bld) 72.1 % Normal [facility] Comment on above: Order Comment: Speci men Type: BLOOD SPECIMENOrdering Facility: [facility] Address: [address] [place] [address] Performed By: #### 5 7021-8 ####[facility] LABCLIA [id number] [place] [address] [place] Platelet mean volume (Bld) [Entitic vol] 9.7 fL Normal 9.0-12.7 [facility] Comment on above: Order Comment: Speci men Type: BLOOD SPECIMENOrdering Facility: [facility] Address: [address] [place] [address] Performed By: #### 5 7021-8 ####[facility] LABCLIA [id number] [place] [facility] [place] [address] [place] Platelets (Bld) [#/Vol] 251 10*3/uL Normal 150-400 [facility] Comment on above: Order Comment: Speci men Type: BLOOD SPECIMENOrdering Facility: [facility] Address: [address] [place] [address] Performed By: #### 5 7021-8 ####[facility] LABCLIA [id number] [place] [address] [place] RBC (Bld) [#/Vol] 4.50 10*6/uL Normal 3.90-5.20 [facility] Comment on above: Order Comment: Speci men Type: BLOOD SPECIMENOrdering Facility: [facility] Address: [address] [place] [address] Performed By: #### 5 7021-8 ####[facility] LABCLIA [id number] [place] [address] [facility] WBC (Bld) [#/Vol] 9.74 10*3/uL Normal 3.70-11.00 [facility] Comment on above: Order Comment: Speci men Type: BLOOD SPECIMENOrdering Facility: [facility] Address: [address] [place], [place] [address] [id number] Performed By: #### 5 7021-8 ####[facility] LABCLIA [id number] [place] [address] [facility] OF [place] CT ABD/PEL W IVCONon 022 CT ABD/PEL W IVCON * * *Final Report* * * DATE OF EXAM: Dec 31 2021 7:25PM [facility] 0530 - CT ABD/PEL W IVCON [...] Tissues: No significant finding. Lower thorax: Unremarkable. Manager Placement (topogram) images: No additional findings. IMPRESSION: No acute abnormality Atrophic left kidney with cortical scarring and suspected small nonobstructing calculi. Findings may be related to chronic reflux disease or infection Hepatic steatosis [employer] Teacher: CAROLA Transcribe Date/Time: Dec 31 2021 7:37P Dictated by : DIYA FUENTES MD This examination was interpreted and the report reviewed and electronically signed by: DIYA FUENTES MD on Dec 31 2021 7:42PM EST [id number] N Normal [facility] Comprehensive metabolic 2000 panelon 12-31-2021 Albumin [Mass/Vol] 4.0 g/dL Normal 3.4-5.0 [facility] Comment on above: Order Comment: Speci men Type: BLOOD SPECIMENOrdering Facility: [facility] Address: [address] [place] [address] Performed By: #### 2 4323-8, ####[facility] [employer] LABCLIA [id number] [place] [address] [place] ALP [Catalytic activity/Vol] 74 U/L Normal 46-116 [facility] Comment on above: Order Comment: Speci men Type: BLOOD SPECIMENOrdering Facility: [facility] Address: [address] [address] Performed By: #### 2 4323-8, ####[facility] LABCLIA [id number] [place] [address] [place] ALT With P-5'-P [Catalytic activity/Vol] 55 U/L Normal 12-78 [facility] Comment on above: Order Comment: Speci men Type: BLOOD SPECIMENOrdering Facility: [facility] Address: [address] [address] Performed By: #### 2 432-8, ####[facility] LABCLIA [id number] [place] [address] [place] Anion gap [Moles/Vol] 2 mmol/L Low 8-16 [facility] Comment on above: Order Comment: Speci men Type: BLOOD SPECIMENOrdering Facility: [facility] Address: [address] [place] [address] Performed By: #### 2 8, ####[facility] LABCLIA [id number] [place] [address] [place] AST With P-5'-P [Catalytic activity/Vol] 29 U/L Normal 15-46 [facility] Comment on above: Order Comment: Speci men Type: BLOOD SPECIMENOrdering Facility: [facility] Address: [address] [place] [address] Result Comment: Spec imen slightly hemolyzed. Performed By: #### 2 4323-05, ####[facility] BATH LABCLIA [id number] [place] [address] [place] Bilirubin [Mass/Vol] 0.2 mg/dL Normal 0.2-1.0 [facility] Comment on above: Order Comment: Speci men Type: BLOOD SPECIMENOrdering Facility: [facility] Address: [address] [place], [place] [address] Performed By: #### 2 8, ####[facility] LABCLIA [id number] [place] [address] [place] Calcium [Mass/Vol] 9.1 mg/dL Normal 8.5-10.1 [facility] Comment on above: Order Comment: Speci men Type: BLOOD SPECIMENOrdering Facility: [facility] Address: [address] [place], [place] [address] Performed By: #### 2 4328, ####[facility] LABCLIA [id number] [place] [address] [place] Chloride [Moles/Vol] 100 mmol/L Normal 98-107 [facility] Comment on above: Order Comment: Speci men Type: BLOOD SPECIMENOrdering Facility: [facility] Address: [address] [place] [address] Performed By: #### 2 4323-8, ####[facility] B[facility] LABCLIA [id number] [place] [address] [place] CO2 [Moles/Vol] 33 mmol/L High 21-32 [facility] Comment on above: Order Comment: Speci men Type: BLOOD SPECIMENOrdering Facility: [facility] Address: [address] [place] [address] Performed By: #### 2 4323-8, ####[facility] LABCLIA [id number] [place] [address] [place] [facility] Creatinine [Mass/Vol] 0.78 mg/dL Normal 0.51-0.95 [facility] Comment on above: Order Comment: Speci men Type: BLOOD SPECIMENOrdering Facility: [facility] Address: [address] [place] [address] Performed By: #### 2 4323-8, ####[facility] LABCLIA [id number] [place] [address] [facility] ESTIMATED GLOMERULAR FILTRATION RATE 110 mL/min/1.73m??? Normal >=60 [facility] Comment on above: Order Comment: Speci men Type: BLOOD SPECIMENOrdering Facility: [facility] Address: [address] [place] [address] Result Comment: Tierra mated Glomerular Filtration Rate [...] actual GFR. Performed By: #### 2 4323-8, ####[facility] [employer] LABCLIA [id number] [place] [address] [place] Glucose [Mass/Vol] 94 mg/dL Normal 70-99 [facility] Comment on above: Order Comment: Speci men Type: BLOOD SPECIMENOrdering Facility: [facility] Address: [address] [place] [address] Result Comment: The [place] Diabetes Association (ADA) provides guidance for cutoff [...] Standards of Medical Care in Diabetes 2016, [place] [employer]. Diabetes Care. 2016.39(Suppl 1). Performed By: #### 2 4323-8, 28596-9 ####[facility] [employer] LABCLIA [id number] [place] [address] [place] Potassium [Moles/Vol] 3.6 mmol/L Normal 3.5-5.1 [facility] Comment on above: Order Comment: Speci men Type: BLOOD SPECIMENOrdering Facility: [facility] Address: [address] [place] [address] Result Comment: Spec imen slightly hemolyzed. Performed By: #### 2 4323-8, ####[facility] [employer] LABCLIA [id number] [place] [address] [place] Protein [Mass/Vol] 7.7 g/dL Normal 6.4-8.2 [facility] Comment on above: Order Comment: Speci men Type: BLOOD SPECIMENOrdering Facility: [facility] Address: [address] [place] [address] Performed By: #### 2 4323-8, ####[facility] LABCLIA [id number] [facility] [place] [address] [place] Sodium [Moles/Vol] 135 mmol/L Low 136-145 [facility] Comment on above: Order Comment: Speci men Type: BLOOD SPECIMENOrdering Facility: [facility] Address: [address] [place], [place] [address] Performed By: #### 2 4323-8, ####[facility] LABCLIA [id number] [place] [address] [place] Urea nitrogen [Mass/Vol] 10 mg/dL Normal 7-18 [facility] Comment on above: Order Comment: Speci men Type: BLOOD SPECIMENOrdering Facility: [facility] Address: [address] [place] [address] Performed By: #### 2 4323-8, ####[facility] LABCLIA [id number] [place] [address] [facility] ED NOTEon 12-31-2021 ED NOTE HNO ID: [id number] Author: Amy Pena RN Service: Emergency Medicine Author Type: Registered Nurse Type: ED Notes Filed: 12/31/2021 7:03 PM Note Text: Patient resting in room. Patient updated on the plan of care. Bed in low locked position. Call light in reach. Monitoring maintained. Safety and comfort care maintained. Normal [facility] ED NOTE HNO ID: [id number] Author: Amy Pena RN Service: Emergency Medicine Author Type: Registered Nurse Type: ED Notes Filed: 12/31/2021 6:34 PM Note Text: Patient resting in room. Patient updated on the plan of care. Bed in low locked position. Call light in reach. Monitoring maintained. Safety and comfort care maintained. [facility] ED NOTE HNO ID: [id number] Author: Amy Pena RN Service: Emergency Medicine Author Type: Registered Nurse Type: ED Notes Filed: 12/31/2021 5:20 PM Note Text: Patient resting in room. Patient updated on the plan of care. Bed in low locked position. Call light in reach. Monitoring maintained. Safety and comfort care maintained. Normal [facility] ED NOTE HNO ID: [id number] Author: Amy Pena RN Service: Emergency Medicine Author Type: Registered Nurse Type: ED Notes Filed: 12/31/2021 4:55 PM Note Text: Patient updated on the plan of care. Patient medicated per order. Allergies reviewed. Patient verbalized understanding. Normal 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 Emesis x 1 today. Normal BM today. Pt denies dysuria or hematuria. Hx of kidney stone and UTI Normal [facility] ED PROV NOTEon 12-31-2021 ED PROV NOTE HNO ID: [id number] Author: Mary Pereira DO Service: Emergency Medicine [...] edema. Skin (more content not included)... Normal [facility] ED PROV NOTE HNO ID: [id number] Author: Jayde Yeager MD Service: Emergency Medicine [...] 4:28 PM Jayde Yeager MD 12/31/212020 Normal [facility] HCG Preg Ur Qlon 12-31-2021 HCG ( test) Ql (U) Negative Normal Negative [facility] Comment on above: Order Comment: Speci men Type: URINE SPECIMENOrdering Facility: [facility] Address: [address] [place] [address], [place] [address] Result Comment: This test is intended to aid in the early detection of . Very dilute urine samples, as indicated by a low specific gravity, may not contain event sales representative levels of hCG. This test [...] for . Performed By: #### 2 106-3 ####[facility] LABCLIA [id number] [place] [address] [place] Magnesium SerPl-mCncon 12-31 Magnesium [Mass/Vol] 1.9 mg/dL Normal 1.6-2.3 [facility] Comment on above: Order Comment: Speci men Type: BLOOD SPECIMENOrdering Facility: [facility] Address: [place] [address] Performed By: #### 2 4323-8, 07625-5 ####[facility] LABCLIA [id number] [place] [address] [place] US DOPPLER COMPLETEon [...] to body habitus. 4. No free fluid. [employer] Teacher: PSCB Transcribe Date/Time: Dec 31 2021 6:24P Dictated by : KAITY SHAY MD This examination was interpreted and the report reviewed and electronically signed by: KAITY SHAY MD on Dec 31 2021 6:28PM EST [id number] N Normal [facility] US FEMALE PELVIS TRANSABD LT Don 12-31-2021 [...] to body habitus. 4. No free fluid. [employer] Teacher: CAROLA Transcribe Date/Time: Dec 31 2021 6:24P Dictated by : KIATY SHAY MD This examination was interpreted and the report reviewed and electronically signed by: KAITY SHAY MD on Dec 31 2021 6:28PM EST [id number] N Normal [facility] US FEMALE PELVIS TRANSVAGon 12-31-2021 US FEMALE [...] to body habitus. 4. No free fluid. [employer] Teacher: [facility] Transcribe Date/Time: Dec 31 2021 6:24P Dictated by : KAITY SHAY MD This examination was interpreted and the report reviewed and electronically signed by: KAITY SHAY MD on Dec 31 2021 6:28PM EST [id number] N Normal [facility] Urinalysis complete panel (U )on 12-31-2021 Bacteria LM.HPF (Urine sed) [#/Area] Many Abnormal None Seen [facility] Comment on above: Order Comment: Speci men Type: URINE SPECIMENOrdering Facility: [facility] Address: [address] [place] [address] Performed By: #### 2 4356-8 ####[facility] [employer] LABCLIA [id number] [address] STATES OF [facility] Bilirubin Ql (U) Negative Normal Negative [facility] Comment on above: Order Comment: Speci men Type: URINE SPECIMENOrdering Facility: [facility] Address: [address] [address] Performed By: #### 2 4356-8 ####[facility] LABCLIA [id number] [place] [id number] [place] Clarity (Unsp spec) Clear Normal Clear [facility] Comment on above: Order Comment: Speci men Type: URINE SPECIMENOrdering Facility: [facility] Address: [address] [place] [address] Performed By: #### 2 4356-8 ####[facility] LABCLIA [id number] [facility] [place] [address] [place] Color (U) Yellow Normal Yellow [facility] Comment on above: Order Comment: Speci men Type: URINE SPECIMENOrdering Facility: [facility] Address: [address] [place] [address] Performed By: #### 2 4356-8 ####[facility] LABCLIA [id number] [facility] [place] [address] [facility] Epithelial cells LM.HPF (Urine sed) [#/Area] Many Normal [facility] Comment on above: Order Comment: Speci men Type: URINE SPECIMENOrdering Facility: [facility] Address: [address] [place] [address] Performed By: #### 2 4356-8 ####[facility] LABCLIA [id number] [facility] [place] [address] [facility] Glucose Test strip (U) [Mass/Vol] Negative Normal Negative [facility] Comment on above: Order Comment: Speci men Type: URINE SPECIMENOrdering Facility: [facility] Address: [address] [place] [address] Performed By: #### 2 4356-8 ####[facility] LABCLIA [id number] [facility] [place] [address] [place] Hemoglobin Ql (U) 2+ Abnormal Negative [facility] Comment on above: Order Comment: Speci men Type: URINE SPECIMENOrdering Facility: [facility] Address: [address] [place] [address] Performed By: #### 2 4356-8 ####[facility] LABCLIA [id number] [facility] [place] [address] [place] Ketones Ql (U) Negative Normal Negative [facility] Comment on above: Order Comment: Speci men Type: URINE SPECIMENOrdering Facility: [facility] Address: [address] [place] [address] Performed By: #### 2 4356-8 ####[facility] LABCLIA [id number] [facility] [place] [address] [facility] [place] Leukocyte esterase Test strip Ql (U) Trace Abnormal Negative [facility] Comment on above: Order Comment: Speci men Type: URINE SPECIMENOrdering Facility: [facility] Address: [address] [place] [address] Performed By: #### 2 4356-8 ####[facility] LABCLIA [id number] [facility] [place] [address] [place] Nitrite Ql (U) Negative Normal Negative [facility] Comment on above: Order Comment: Speci men Type: URINE SPECIMENOrdering Facility: [facility] Address: [address] [place] [address] Performed By: #### 2 4356-8 ####[facility] LABCLIA [id number] [facility] [place] [address] [place] pH (U) 6.0 [pH] Normal 5.0-8.0 [facility] Comment on above: Order Comment: Speci men Type: URINE SPECIMENOrdering Facility: [facility] Address: [address] [place] [address] Performed By: #### 2 4356-8 ####[facility] LABCLIA [id number] [facility] [place] [address] [place] Protein (U) [Mass/Vol] Normal [facility] Comment on above: Order Comment: Speci men Type: URINE SPECIMENOrdering Facility: [facility] Address: [address] [place] [address] Result Comment: Visi ble blood causes falsely elevated results for analyte Protein. Due to this limitation, Protein will not be reported for patients whose urine contains visible blood. Performed By: #### 2 4356-8 ####[facility] LABCLIA [id number] [place] [address] [place] [facility] RBC LM.HPF (Urine sed) [#/Area] 11-25 /HPF Abnormal 0-3 /HPF [facility] Comment on above: Order Comment: Speci men Type: URINE SPECIMENOrdering Facility: [facility] Address: [address] [place] [address] Performed By: #### 2 4356-8 ####[facility] LABCLIA [id number] [place] [address] [facility] Specific gravity (U) [Rel density] >=1.030 High 1.005-1.030 [facility] Comment on above: Order Comment: Speci men Type: URINE SPECIMENOrdering Facility: [facility] Address: [address] [place] [address] Performed By: #### 2 4356-8 ####[facility] LABCLIA [id number] [address] Urobilinogen Ql (U) 0.2 EU/dL Normal 0.2-1.0 EU/dL [facility] Comment on above: Order Comment: Speci men Type: URINE SPECIMENOrdering Facility: [facility] Address: [address] [place] [address] Performed By: #### 2 4356-8 ####[facility] LABCLIA [id number] [place] [id number] [facility] WBC LM.HPF (Urine sed) [#/Area] 6-10 /HPF Abnormal 0-5 /HPF [facility] Comment on above: Order Comment: Speci men Type: URINE SPECIMENOrdering Facility: [facility] Address: [address] [place] [address] Performed By: #### 2 4356-8 ####[facility] LABCLIA [id number] [place] [address] [facility] COVID 19, [facility](RT COLLECT )on 03-17-2021 SARS-CoV-2 (COVID-19) RNA CHICHO+probe Ql (Unsp spec) Not detected Normal Not Detect [facility] Comment on above: Result Comment: Norm al Reference Range: Not Detected Method:(RT-PCR) real-time reverse transcriptase PCR [employer] Flatter [employer] Instrument *The Food and Drug Administration (FDA) has issued an Emergency Use Authorization (EAU) for the Flatter [employer] SARS-CoV-2 Assay for the rapid detection of [...] exposure. Performed By: #### L 3400.2405 #### [facility] [address] [place], [address] HAND RIGHT COMPLETEon 2020 HAND RIGHT COMPLETE EXAM: Right hand HISTORY: Pain after shutting a door on the hand on 01/27/2021. TECHNIQUE: 3 views of the right hand were obtained. FINDINGS: There is no evidence of fracture or dislocation. There are no suspicious bone lesions. Soft tissues are normal. IMPRESSION: No acute findings. Normal [facility] BASIC METABOLIC PANELon 01-0 Anion gap [Moles/Vol] 13 mmol/L Normal 10 - 20 [facility] Comment on above: Performed By: #### B MP #### [address] [address] Calcium [Mass/Vol] 9.5 mg/dL Normal 8.6 - 10.3 [facility] Comment on above: Performed By: #### B MP #### [address] [address] Chloride [Moles/Vol] 104 mmol/L Normal 98 - 107 [facility] Comment on above: Performed By: #### B MP #### [address] [address] Creatinine [Mass/Vol] 0.76 mg/dL Normal 0.50 - 1.05 [facility] Comment on above: Performed By: #### B MP #### [address] [address] GFR- AM. >60 Normal >60 [facility] Comment on above: Result Comment: CALC ULATIONS OF ESTIMATED GFR ARE PERFORMED USING THE MDRD STUDY EQUATION FOR THE IDMS-TRACEABLE CREATININE METHODS. CLIN CHEM 2007;53:766-72 Performed By: #### B MP #### [address] [address] GFR-NON AM. >60 Normal >60 [facility] Comment on above: Performed By: #### B MP #### [address] [address] Glucose [Mass/Vol] 88 mg/dL Normal 74 - 99 [facility] Comment on above: Performed By: #### B MP #### [address] [address] HCO3 (Bld) [Moles/Vol] 27 mmol/L Normal 21 - 32 [facility] Comment on above: Performed By: #### B MP #### [address] [address] Potassium [Moles/Vol] 3.8 mmol/L Normal 3.5 - 5.3 [facility] Comment on above: Performed By: #### B MP #### [address] [address] Sodium [Moles/Vol] 140 mmol/L Normal 136 - 145 [facility] Comment on above: Performed By: #### B MP #### [address] [address] Urea nitrogen [Mass/Vol] 11 mg/dL Normal 6 - 23 [facility] Comment on above: Performed By: #### B MP #### [address] [address] CBCon 10-17-2019 Erythrocyte distribution width (RBC) [Ratio] 12.5 % Normal 11.5 - 14.5 [facility] Comment on above: Performed By: #### C BC #### [address] [address] Hematocrit (Bld) [Volume fraction] 42.6 % Normal 36.0 - 46.0 [facility] Comment on above: Performed By: #### C BC #### [address] [address] Hemoglobin (Bld) [Mass/Vol] 14.5 g/dL Normal 12.0 - 16.0 [facility] Comment on above: Performed By: #### C BC #### [address] [address] MCHC (RBC) [Mass/Vol] 34.1 g/dL Normal 32.0 - 36.0 [facility] Comment on above: Performed By: #### C BC #### [address] [address] MCV (RBC) [Entitic vol] 91 fL Normal 80 - 100 [facility] Comment on above: Performed By: #### C BC #### [address] [address] Platelets (Bld) [#/Vol] 270 10*3/uL Normal 150 - 450 [facility] Comment on above: Performed By: #### C BC #### [address] [address] RBC (Bld) [#/Vol] 4.67 x10E12/L Normal 4.00 - 5.20 [facility] Comment on above: Performed By: #### C BC #### [address] [address] WBC (Bld) [#/Vol] 8.2 10*3/uL Normal 4.4 - 11.3 [facility] Comment on above: Performed By: #### C BC #### [address] [address] [address] HEAD WO CONTRASTon 2019 CT HEAD WO CONTRAST Patient Name: BIBI, LUZ STUDY: CT of the head without contrast INDICATION: dizzy/trauma COMPARISON: None ACCESSION NUMBER(S): [id number] ORDERING CLINICIAN: RASHMI FERRERA TECHNIQUE: A CT [...] Electronically signed by: LILI MONTEIRO MD Normal [facility] HCG,URINEon 10-17-2019 Beta HCG ( test) Ql (U) Negative Normal Negative [facility] Comment on above: Performed By: #### H U #### [place] [address] Provider Note - ED v2on Provider Note - ED v2 Provider Note - ED v2: Chart Review: ED NOTES ED NOTES: ====HPI==== 19 year old female comes to the 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 Patient states she believes she has a [...] made to minimize errors. Minor errors in hide paster may be present. Please call if questions. 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: Is : no(1) Is : no(1) RESULTS/VITAL [...] at 10/17/2019 01:39 Appearance, Urine CLEAR Specific [place], Urine 1.021 pH, Urine 7.0 Protein, Urine [...] SIGNS: T PRBP SpO2O2(LPM) %FiO2 Method 17-Oct-2019 01:27:[id number]/80 100 room air, no respiratory support 16-Oct-2019 22:16:[id number] /78 99 room air, no respiratory support 16-Oct-2019 22:00:[id number] /78 99 room air, no respiratory support [...] Referenced From Triage - ED 16-Oct-2019 22:16 [facility] Risk Screen - Adult Emergenc [...] instruction; written material Cultural Considerationsnone Developmental Considerationsnone Congregational Considerationsnone Other Learnerssignificant other Learning Assessment (Other Learner): Learning Assessment (Other Learner): Other learner availableyes... Learnersignificant other Factors Influencing Readiness to Learninterest in learning Factors that Impact Ability to Learnnone Devices/Methods Used to Communicatenone Learning Preferencesverbal instruction, written material Cultural Considerationsnone Developmental Considerationsnone Congregational Considerationsnone Pressure Injury/TB/Substance: Pressure Injury: Do you have a coughno Substance Use Current or Former Historynever: Cigarette/Tobacco, e-Cigarette/Vaping, Alcohol, Street Drugs Admission Risk Screen: Significant IndicatorsComplete CAGE: CAGE: Is this an injured patient at a Trauma Center ([facility]/[place]/[facility]/[place]): no Electronic Signatures: Lisette Junior (RN) (Signed 16-Oct-2019 22:23) Authored: Preferred Language, Advanced Directives, Family Violence Adult, Learning Assessment (Patient), Learning Assessment (Other Learner), Pressure Injury/TB/Substance, CAGE Last Updated: 16-Oct-2019 22:23 by Lisette Junior (RN) [facility] Triage - EDon 10-17-2019 Triage [...] BMI (kg/m2): 29.674 Calculated BSA (m2) 1.75 [place] Coma Scale: Best Eye Response: (E4) spontaneous Best Motor Response: (M6) obeys commands Best Verbal Response: (V5) oriented Amador Score: 15 Cough lasting greater than 3 weeks: no Patient immunocompromised related to: N/A Travel outside of [facility]: no Allergies: yes Last menstrual period: [...] and spouse/significant other Language: Spoken Language Preferred: Sudanese Reading Language Preferred: Sudanese 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 CELLS 1+ /HPF Normal [facility] Comment on above: Performed By: #### U AMIC #### [place] [address] TRANSITIONAL EPITH.CELLS Negative Normal [facility] Comment on above: Performed By: #### U AMIC #### [place] [address] WBC (Bld) [#/Vol] 5-20 Abnormal 0-5 [facility] Comment on above: Performed By: #### U AMIC #### [place] [address] URINALYSISon 10-17-2019 Appearance (U) CLEAR Normal CLEAR [facility] Comment on above: Result Comment: This is a corrected result. Previous value was HAZY, verified at 10/17/2019 01:39 Performed By: #### U A #### [address] [address] Color (U) YELLOW Normal STRAW,YELLOW [facility] Comment on above: Result Comment: This is a corrected result. Previous value was Red, verified at 10/17/2019 01:39 Performed By: #### U A #### [address] [address] Bilirubin (U) [Mass/Vol] Negative Normal NEGATIVE [facility] Comment on above: Performed By: #### U A #### [place] [id number] BLOOD SMALL(1+) Abnormal NEGATIVE [facility] Comment on above: Performed By: #### U A #### [place] [id number] Glucose [Mass/Vol] Negative Normal NEGATIVE [facility] Comment on above: Performed By: #### U A #### [place] [address] Ketones Ql (U) Negative Normal NEGATIVE [facility] Comment on above: Performed By: #### U A #### [place] [address] Leukocyte esterase Test strip Ql (U) TRACE Abnormal NEGATIVE [facility] Comment on above: Performed By: #### U A #### [address] [address] Nitrite Ql (U) Negative Normal NEGATIVE [facility] Comment on above: Performed By: #### U A #### [place] [id number] pH (Bld) 7.0 Normal 5.0 - 8.0 [facility] Comment on above: Performed By: #### U A #### [place] [id number] Protein (U) [Mass/Vol] Negative Normal NEGATIVE [facility] Comment on above: Performed By: #### U A #### [place] [id number] Specific gravity (U) [Rel density] 1.021 Normal 1.005 - 1.035 [facility] Comment on above: Performed By: #### U A #### [address] [address] Urobilinogen Qn (U) <2.0 Normal 0.0 - 1.9 [facility] Comment on above: Performed By: #### U A #### [address] [address] URINE CULTURE,BACTERIALon URINE CULTURE,BACTERIAL TEST URINE CULTURE,BACTERIAL WAS CANCELLED, 10/19/2019 16:21 PATIENT DISCHARGED. PATIENT: LUZ MTZ LOCATION: [facility]#: [id number] : 89 AGE: SEX: F ORDERED BY: RASHMI FERRERA SOURCE: URINE COLLECTED: 10/17/19 02:24 ANTIBIOTICS AT JAMIE.: RECEIVED : SITE: Clean Catch/Voided R E S U L T S URINE CULTURE,BACTERIAL CANCELLED 10/19/19 16:21 Normal [facility] Comment on above: Performed By: #### U [facility] #### [facility] [address] [place] [address] XR Foot 3+ Views Righton XR Foot 3+ Views Right Exam Date/Time: 04/28/2019 13:58 EDT Reason for Exam: Pain, Traumatic Report STUDY: XR Foot 3+ Views Right;; 04/28/2019 1:58 pm INDICATION: Pain, Traumatic. COMPARISON: None. ACCESSION NUMBER(S): [id number] ORDERING CLINICIAN: Alex Grubbs FINDINGS: No acute fracture or malalignment. No radiopaque foreign body. IMPRESSION: No acute osseous abnormality FINAL REPORT Dictated: 04/28/2019 2:30 pm Nancy Mills MD Signed (Electronic Signature): 04/28/2019 2:30 pm Signed by: Nancy Mills MD Technologist: JOHNSON Normal [facility] ABO/Rh Echoon 12-25-2018 ABO/Rh E Interp... Positive [facility] Comment on above: Performed By: #### 2 [id number] #### [facility] [address] [place] [address] BhCG Quanton 12-25-2018 Beta hCG Qnt <0.6 Normal 0.0-2.9 [facility] Comment on above: Performed By: #### 2 756588 #### [facility] [address] [place] [address] UA Completeon 12-25-2018 Color (U) Yellow Normal Yellow [facility] Comment on above: Performed By: #### 2 399559 #### [facility] [address] [place] [address] Glucose (U) [Mass/Vol] Negative Normal Negative [facility] Comment on above: Performed By: #### 2 626017 #### [facility] [place] [address] Ketones Ql (U) Negative Normal Negative [facility] Comment on above: Performed By: #### 2 339476 #### [facility] [address] [place] [address] RBC (U) [#/Vol] /uL Abnormal 0-3 [facility] Comment on above: Performed By: #### 2 230933 #### [facility] [address] [place] [address] UA Blood 3+ Normal Negative [facility] Comment on above: Performed By: #### 2 505141 #### [facility] [address] [place] [address] UA Bacteria Trace Abnormal None [facility] Comment on above: Performed By: #### 2 797952 #### [facility] [address] [place] [address] UA Clarity Clear Normal Clear [facility] Comment on above: Performed By: #### 2 561812 #### [facility] [address] [place] [address] UA Leuk Est Negative Normal Negative [facility] Comment on above: Performed By: #### 2 706198 #### [facility] [address] [place] [address] UA Mucous Trace Abnormal Trace [facility] Comment on above: Performed By: #### 2 792780 #### [facility] [address] [place] [address] UA Nitrite Negative Normal Negative [facility] Comment on above: Performed By: #### 2 845051 #### [facility] [address] [place] [address] UA pH 8.0 Normal 4.6-8.0 [facility] Comment on above: Performed By: #### 2 180322 #### [facility] [address] [place] [address] UA Protein Negative Normal Negative [facility] Comment on above: Performed By: #### 2 495940 #### [facility] [address] [place] [address] UA Spec Grav 1.012 Normal 1.003-1.030 [facility] Comment on above: Performed By: #### 2 275780 #### [facility] [address] [place] [address] UA Squam Epithelial 0-5 Normal 0-5 [facility] Comment on above: Performed By: #### 2 796583 #### [facility] [address] [place] [address] UA Urobilinogen Negative Normal [facility] Comment on above: Result Comment: Due to a manufacturing issue, low positive urobilinogen results may be fasely positive. Correlate with urine bilirubin and additional clinical/laboratory findings to assess the risk of hemolytic anemia or liver disease. If clinically indicated, repeat testing with an alternate method is available by contacting the laboratory within 24 hours. Performed By: #### 2 362553 #### [facility] [address] [place] [address] UA WBC 5-10 Abnormal 0-5 [facility] Comment on above: Performed By: #### 2 955319 #### [facility] [address] [place] [address] Urobilinogen Qn (U) Negative Normal Negative [facility] Comment on above: Performed By: #### 2 295752 #### [facility] [address] [place] [address] C Urineon 09-05-2018 C Urine Final Report: Light growth of Normal skin den isolated Normal [facility] Comment on above: Performed By: #### 2 751614 #### [facility] [address] [place] [address] .Manual Abson 09-03-2018 Basophil Abs Man 0.0 10x3/ Normal 0.0-0.2 [facility] Comment on above: Order Comment: Order Added by Discern Expert. Performed By: #### 3 [id number] #### [facility] [address] [place] [address] Eos Abs Man 0.0 10x3/ Normal 0.0-0.5 [facility] Comment on above: Order Comment: Order Added by Discern Expert. Performed By: #### 3 [id number] #### [facility] [address] [place] [address] Lymph Abs Man 0.5 10x3/ Low 1.2-3.4 [facility] Comment on above: Order Comment: Order Added by Discern Expert. Performed By: #### 3 [id number] #### [facility] [address] [place] [address] Swain Abs Man 0.4 10x3/ Normal 0.0-0.7 [facility] Comment on above: Order Comment: Order Added by Discern Expert. Performed By: #### 3 [id number] #### [facility] [address] [place] [address] Segs Abs Man 7.8 10x3/ High 1.4-6.5 [facility] Comment on above: Order Comment: Order Added by Discern Expert. Performed By: #### 3 [id number] #### [facility] [address] [place] [id number] BMPon 09-03-2018 Anion gap [Moles/Vol] 14 mmol/L Normal 10-20 [facility] Comment on above: Performed By: #### 2 993987 #### [facility] [address] [place] [address]67[address] Calcium [Mass/Vol] 8.8 mg/dL Normal 8.5-10.7 [facility] Comment on above: Performed By: #### 2 637729 #### [facility] [place] [address] Chloride [Moles/Vol] 102 mmol/L Normal 98-107 [facility] Comment on above: Performed By: #### 2 659931 #### [facility] [address] [place] [address] CO2 [Moles/Vol] 24.0 mmol/L Normal 21.0-32.0 [facility] Comment on above: Performed By: #### 2 108194 #### [facility] [address] [place] [address] Creatinine [Mass/Vol] 0.8 mg/dL Normal 0.5-1.1 [facility] Comment on above: Performed By: #### 2 942252 #### [facility] [address] [place] [address] Glucose [Mass/Vol] 100 mg/dL High 70-99 [facility] Comment on above: Performed By: #### 2 276817 #### [facility] [address] [place] [address] Potassium [Moles/Vol] 3.2 mmol/L Low 3.5-5.3 [facility] Comment on above: Performed By: #### 2 635264 #### [facility] [address] [place] [address] Sodium [Moles/Vol] 137 mmol/L Normal 136-145 [facility] Comment on above: Performed By: #### 2 386936 #### [facility] [address] [place] [address] Urea nitrogen [Mass/Vol] 11 mg/dL Normal 6-23 [facility] Comment on above: Performed By: #### 2 560289 #### [facility] [address] [place] [address] Urea nitrogen/Creatinine [Mass ratio] 13.8 ratio Normal 5.4-30.0 [facility] Comment on above: Performed By: #### 2 888739 #### [facility] [address] [place] [address] CBC w/ Auto Diffon 8 Erythrocyte distribution width (RBC) [Ratio] 13.0 % Normal 11.5-14.5 [facility] Comment on above: Performed By: #### 2 115532 #### [facility] [address] [place] [address] Hematocrit (Bld) [Volume fraction] 37.2 % Normal 36.0-48.0 [facility] Comment on above: Performed By: #### 2 997758 #### [facility] [address] [place] [address] Hemoglobin (Bld) [Mass/Vol] 12.7 g/dL Normal 12.0-16.0 [facility] Comment on above: Performed By: #### 2 816371 #### [facility] [address] [place] [address] MCH (RBC) [Entitic mass] 31.2 pg High 27.0-31.0 [facility] Comment on above: Performed By: #### 2 060365 #### [facility] [address] [place] [address] MCHC (RBC) [Mass/Vol] 34.2 g/dL Normal 33.0-37.0 [facility] Comment on above: Performed By: #### 2 185935 #### [facility] [address] [place] [address] MCV (RBC) [Entitic vol] 91.4 fL Normal 78.0-100.0 [facility] Comment on above: Performed By: #### 2 080187 #### [facility] [address] [place] [address] Platelet mean volume (Bld) [Entitic vol] 8.2 fL Normal 7.4-11.0 [facility] Comment on above: Performed By: #### 2 170981 #### [facility] [address] [place] [address] Platelets (Bld) [#/Vol] 201 E3/mcL Normal 130-400 [facility] Comment on above: Performed By: #### 2 296119 #### [facility] [address] [place] [address] RBC (Bld) [#/Vol] 4.07 E6/mcL Normal 3.90-5.40 [facility] Comment on above: Performed By: #### 2 214367 #### [facility] [address] [place] [address] WBC (Bld) [#/Vol] 8.9 E3/mcL Normal 3.6-11.0 [facility] Comment on above: Performed By: #### 2 589359 #### [facility] [address] [place] [address] CT Abdomen/Pelvis w/ Contras ton 09-03-2018 CT Abdomen/Pelvis w/ Contrast Exam Date/Time: 09/03/2018 21:35 EST Reason for Exam: Pain Report STUDY: CT Abdomen/Pelvis w/ Contrast; 09/03/2018 9:35 pm INDICATION: Pain. Pain COMPARISON: No comparison available ACCESSION NUMBER(S): [id number] ORDERING CLINICIAN: Miles Horn TECHNIQUE: CT of [...] by: Joaquin Lobo MD Technologist: JOHN, Paul [facility] Hep Func Panelon 09-03-2018 Albumin [Mass/Vol] 4.3 g/dL Normal 3.4-5.0 [facility] Comment on above: Performed By: #### 2 115439 #### [facility] [place] [address] [address] [place] [address] Albumin/Globulin [Mass ratio] 1.7 {ratio} Normal 1.1-1.9 [facility] Comment on above: Performed By: #### 2 017950 #### [facility] [address] [place] [address] Alk Phos 59 Int._Unit/L Normal 33-139 [facility] Comment on above: Performed By: #### 2 463045 #### [facility] [address] [place] [address] ALT [Catalytic activity/Vol] 18 Int._Unit/L Normal 7-45 [facility] Comment on above: Performed By: #### 2 324279 #### [facility] [address] [place] [address] AST [Catalytic activity/Vol] 18 Int._Unit/L Normal 9-39 [facility] Comment on above: Performed By: #### 2 802844 #### [facility] [address] [place] [address] Bili Direct 0.16 mg/dL Normal 0.00-0.30 [facility] Comment on above: Performed By: #### 2 900375 #### [facility] [address] [place] [address] Bili Indirect 0.7 Normal [facility] Comment on above: Performed By: #### 2 532171 #### [facility] [address] [place] [address] Bili Total 0.9 mg/dL Normal 0.0-1.2 [facility] Comment on above: Performed By: #### 2 878104 #### [facility] [address] [place] [address] Globulin (S) [Mass/Vol] 3.0 g/dL Normal 2.0-4.0 [facility] Comment on above: Performed By: #### 2 228848 #### [facility] [place] [address] [address] [place] [address] Protein [Mass/Vol] 6.8 g/dL Normal 6.4-8.2 [facility] Comment on above: Performed By: #### 2 612362 #### [facility] [address] [place] [address] Influenza A&B Agon 8 Influenzae A Ag Negative Normal Negative [facility] Comment on above: Performed By: #### 2 516838 #### [facility] [address] Influenzae B Ag Negative Normal Negative [facility] Comment on above: Performed By: #### 2 553829 #### [facility] [address] Lactic Acidon 09-03-2018 Lactate [Moles/Vol] 0.8 mmol/L Normal 0.4-2.0 [facility] Comment on above: Performed By: #### 2 490179 #### [facility] [address] Lipase Levelon 09-03-2018 Lipase Lvl 12 Int._Unit/L Normal 9-82 [facility] Comment on above: Performed By: #### 2 703559 #### [facility] [address] Manual Diffon 09-03-2018 Band form neutrophils/100 WBC (Bld) 1 Normal 0-1 [facility] Comment on above: Order Comment: Order Added by Discern Expert. Performed By: #### 2 125998 #### [facility] [address] [place] [address] Basophil Man 0 % Normal 0-1 [facility] Comment on above: Order Comment: Order Added by Discern Expert. Performed By: #### 2 938956 #### [facility] [address] [place] [address] Eosinophils/100 WBC (Bld) 0 % Normal 0-5 [facility] Comment on above: Order Comment: Order Added by Discern Expert. Performed By: #### 2 732370 #### [facility] [address] [place] [address] Lymphocytes/100 WBC (Bld) 6 % Low 14-48 [facility] Comment on above: Order Comment: Order Added by Discern Expert. Performed By: #### 2 199039 #### [facility] [address] [place] [address] Monocyte Man 5 % Normal 1-11 [facility] Comment on above: Order Comment: Order Added by Discern Expert. Performed By: #### 2 055506 #### [facility] [address] [place] [address] RBC morphology finding Nom (Bld) NORMAL Normal [facility] Comment on above: Order Comment: Order Added by Discern Expert. Performed By: #### 2 559897 #### [facility] [address] [place] [address] Segs Man 88 % High 37-75 [facility] Comment on above: Order Comment: Order Added by Discern Expert. Performed By: #### 2 915611 #### [facility] [address] [place] [address] TSHon 09-03-2018 TSH Qn 0.89 mcIU/mL Normal 0.30-5.60 [facility] Comment on above: Order Comment: With T4fr Reflex Performed By: #### 2 482186 #### [facility] [address] [place] [address] U BhCG [place]lton 09-03-2018 HCG.beta subunit Qn Negative Normal Neg [facility] Comment on above: Performed By: #### 2 415301 #### [facility] [address] [place] [address] UA Completeon 09-03-2018 Color (U) Yellow Normal Yellow [facility] Comment on above: Order Comment: Strai ght Cath as needed Performed By: #### 2 394267 #### [facility] [address] [place] [address] Glucose (U) [Mass/Vol] Negative Normal Negative [facility] Comment on above: Order Comment: Strai ght Cath as needed Performed By: #### 2 427329 #### [facility] [address] [place] [address] Ketones Ql (U) 1+ Abnormal Negative [facility] Comment on above: Order Comment: Strai ght Cath as needed Performed By: #### 2 050559 #### [facility] [address] [place] [address] RBC (U) [#/Vol] 10-20 Abnormal 0-3 [facility] Comment on above: Order Comment: Strai ght Cath as needed Performed By: #### 2 402264 #### [facility] [address] [place] [address] UA Blood 1+ Abnormal Negative [facility] Comment on above: Order Comment: Strai ght Cath as needed Performed By: #### 2 [id number] #### [facility] [address] [place] [address] UA Ascorbic Acid 40 mg/dL High <=19 [facility] Comment on above: Order Comment: Strai ght Cath as needed Performed By: #### 2 [id number] #### [facility] [employer] [address] [place] [address] UA Clarity SltCloudy Abnormal Clear [facility] Comment on above: Order Comment: Strai ght Cath as needed Performed By: #### 2 [id number] #### [facility] [employer] [address] [place] [address] UA Leuk Est 1+ Abnormal Negative [facility] Comment on above: Order Comment: Strai ght Cath as needed Performed By: #### 2 [id number] #### [facility] [address] [place] [address] UA Mucous Trace Abnormal Trace [facility] Comment on above: Order Comment: Strai ght Cath as needed Performed By: #### 2 [id number] #### [facility] [address] [place] [address] UA Nitrite Negative Normal Negative [facility] Comment on above: Order Comment: Strai ght Cath as needed Performed By: #### 2 [id number] #### [facility] [address] [place] [address] UA pH 7.0 Normal 4.6-8.0 [facility] Comment on above: Order Comment: Strai ght Cath as needed Performed By: #### 2 [id number] #### [facility] [address] [place] [address] UA Protein Negative Normal Negative [facility] Comment on above: Order Comment: Strai ght Cath as needed Performed By: #### 2 [id number] #### [facility] [address] [place] [address] UA Spec Grav 1.015 Normal 1.003-1.030 [facility] Comment on above: Order Comment: Strai ght Cath as needed Performed By: #### 2 [id number] #### [facility] [address] [place] [address] UA Squam Epithelial 0-5 Normal 0-5 [facility] Comment on above: Order Comment: Strai ght Cath as needed Performed By: #### 2 [id number] #### [facility] [employer] [address] [place] [address] UA Urobilinogen Negative Normal [facility] Comment on above: Order [...] within 24 hours. Performed By: #### 2 [id number] #### [facility] [address] [place] [address] UA WBC 20-50 Abnormal 0-5 [facility] Comment on above: Order Comment: Strai ght Cath as needed Performed By: #### 2 [id number] #### [facility] [address] [place] [address] Urobilinogen Qn (U) Negative Normal Negative [facility] Comment on above: Order Comment: Strai ght Cath as needed Performed By: #### 2 [id number] #### [facility] [address] [place] [address] eGFRon 09-03-2018 GFR/1.73 sq M predicted among non-blacks MDRD (S/P/Bld) [Vol rate/Area] mL/min/{1.73_m2} Normal [facility] Comment on above: Order Comment: Order added by Discern Expert. Performed By: #### 1 [id number] #### [facility] [address] [place] [address] zzplt morphon 09-03-2018 Platelet morphology finding Nom (Bld) NORMAL Normal [facility] Comment on above: Performed By: #### [id number] #### [facility] [employer] [address] [place] [address] Platelets (Bld) [#/Vol] NORMAL Normal [facility] Comment on above: Performed By: #### [id number] #### [facility] [employer] [address] [place] [address] Vital Signs Date Time Vital Sign Value Performing Clinician Facility 04-02-2023 16:00-0400 Body temperature 97.88 [degF] SUNIL GRAHAM MD [facility] 04-02-2023 16:00-0400 Diastolic Blood Pressure Non-Invasive 66 1 SUNIL GRAHAM MD [facility] 04-02-2023 16:00-0400 Heart rate 77 /min SUNIL GRAHAM MD [facility] 04-02-2023 16:00-0400 Respiratory rate 18 /min SUNIL GRAHAM MD [facility] 04-02-2023 16:00-0400 Systolic Blood Pressure Non-Invasive 110 1 SUNIL GRAHAM MD [facility] 04-02-2023 10:00-0400 Body temperature 97.7 [degF] SUNIL GRAHAM MD [facility] 04-02-2023 10:00-0400 Diastolic Blood Pressure Non-Invasive 48 1 SUNIL GRAHAM MD [facility] 04-02-2023 10:00-0400 Heart rate 81 /min SUNIL GRAHAM MD [facility] 04-02-2023 10:00-0400 Systolic Blood Pressure Non-Invasive 97 1 SUNIL GRAHAM MD [facility] 04-02-2023 00:31-0400 Body temperature 97.88 [degF] SUNIL GRAHAM MD [facility] 04-02-2023 00:31-0400 Diastolic Blood Pressure Non-Invasive 59 1 SUNIL GRAHAM MD [facility] 04-02-2023 00:31-0400 Heart rate 68 /min SUNIL GRAHAM MD [facility] 04-02-2023 00:31-0400 Reason For Taking VItal Signs SUNIL GRAHAM MD [facility] 04-02-2023 00:31-0400 Respiratory rate 16 /min SUNIL GRAHAM MD [facility] 04-02-2023 00:31-0400 Systolic Blood Pressure Non-Invasive 113 1 SUNIL GRAHAM MD [facility] 04-01-2023 16:20-0400 Reason For Taking VItal Signs SUNIL GRAHAM MD [facility] 04-01-2023 08:41-0400 Reason For Taking VItal Signs SUNIL GRAHAM MD [facility] 03-31-2023 23:30-0400 Body temperature 97.88 [degF] SUNIL GRAHAM MD [facility] 03-31-2023 15:25-0400 Body temperature 98.42 [degF] SUNIL GRAHAM MD [facility] 03-31-2023 08:36-0400 Body temperature 98.24 [degF] SUNIL GRAHAM MD [facility] 03-30-2023 07:49-0400 Body height 155 cm SUNIL GRAHAM MD [facility] 03-30-2023 07:49-0400 Body weight 78 kg SUNIL GRAHAM MD [facility] 03-30-2023 07:49-0400 Body weight 32.47 kg/m2 SUNIL GRAHAM MD [facility] 03-07-2023 20:03-0400 Body temperature 98.6 [degF] MARTINEZ NÚÑEZ MD [facility] 03-07-2023 20:03-0400 Diastolic Blood Pressure Non-Invasive 69 1 MARTINEZ NÚÑEZ MD [facility] 03-07-2023 20:03-0400 Heart rate 91 /min MARTINEZ NÚÑEZ MD [facility] 03-07-2023 20:03-0400 Respiratory rate 18 /min MARTINEZ NÚÑEZ MD [facility] 03-07-2023 20:03-0400 Systolic Blood Pressure Non-Invasive 115 1 MARTINEZ NÚÑEZ MD [facility] 03-07-2023 20:02-0400 Body height 155 cm MARTINEZ NÚÑEZ MD [facility] 03-07-2023 20:02-0400 Body weight 79.5 kg MARTINEZ NÚÑEZ MD [facility] 03-07-2023 20:02-0400 Body weight 33.09 kg/m2 MARTINEZ NÚÑEZ MD [facility] 03-06-2023 17:39-0400 Body temperature 98.06 [degF] MARTINEZ NÚÑEZ MD [facility] 03-06-2023 17:39-0400 Diastolic Blood Pressure Non-Invasive 76 1 MARTINEZ NÚÑEZ MD [facility] 03-06-2023 17:39-0400 Heart rate 125 /min MARTINEZ NÚÑEZ MD [facility] 03-06-2023 17:39-0400 Systolic Blood Pressure Non-Invasive 113 1 MARTINEZ NÚÑEZ MD [facility] 03-06-2023 17:37-0400 Body height 155 cm MARTINEZ NÚÑEZ MD [facility] 03-06-2023 17:37-0400 Body weight 79.5 kg MARTINEZ NÚÑEZ MD [facility] 03-06-2023 17:37-0400 Body weight 33.09 kg/m2 MARTINEZ NÚÑEZ MD [facility] 01-26-2023 03:20-0400 Diastolic Blood Pressure Non-Invasive 67 1 MARTINEZ NÚÑEZ MD [facility] 01-26-2023 03:20-0400 Heart rate 107 /min MARTINEZ NÚÑEZ MD [facility] 01-26-2023 03:20-0400 Systolic Blood Pressure Non-Invasive 113 1 MARTINEZ NÚÑEZ MD [facility] 01-26-2023 02:34-0400 Diastolic Blood Pressure Non-Invasive 71 1 MARTINEZ NÚÑEZ MD [facility] 01-26-2023 02:34-0400 Heart rate 95 /min MARTINEZ NÚÑEZ MD [facility] 01-26-2023 02:34-0400 Systolic Blood Pressure Non-Invasive 116 1 MARTINEZ NÚÑEZ MD [facility] 01-26-2023 02:15-0400 Body temperature 98.24 [degF] MARTINEZ NÚÑEZ MD [facility] 01-26-2023 01:46-0400 Diastolic Blood Pressure Non-Invasive 42 1 MARTINEZ NÚÑEZ MD [facility] 01-26-2023 01:46-0400 Heart rate 101 /min MARTINEZ NÚÑEZ MD [facility] 01-26-2023 01:46-0400 Systolic Blood Pressure Non-Invasive 114 1 MARTINEZ NÚÑEZ MD [facility] 01-26-2023 01:16-0400 Respiratory rate 16 /min MARTINEZ NÚÑEZ MD [facility] 01-26-2023 00:59-0400 Body height 155 cm MARTINEZ NÚÑEZ MD [facility] 01-26-2023 00:59-0400 Body weight 77.3 kg MARTINEZ NÚÑEZ MD [facility] 01-26-2023 00:59-0400 Body weight 32.17 kg/m2 MARTINEZ NÚÑEZ MD [facility] 11-18-2022 12:08-0500 Body temperature 98.24 [degF] SUNIL GRAHAM MD [facility] 11-18-2022 12:08-0500 Diastolic Blood Pressure Non-Invasive 82 1 SUNIL GRAHAM MD [facility] 11-18-2022 12:08-0500 Heart rate 108 /min SUNIL GRAHAM MD [facility] 11-18-2022 12:08-0500 Respiratory rate 18 /min SUNIL GRAHAM MD [facility] 11-18-2022 12:08-0500 Systolic Blood Pressure Non-Invasive 103 1 SUNIL GRAHAM MD [facility] 10-14-2022 11:01-0500 Body weight 80.06 kg Gretel Quintana MD Work Phone: [facility] 10-14-2022 11:01-0500 Diastolic blood pressure 56 mm[Hg] Gretel Quintana MD Work Phone: [facility] 10-14-2022 11:01-0500 Respiratory rate 18 /min Gretel Quintana MD Work Phone: [facility] 10-14-2022 11:01-0500 Systolic blood pressure 110 mm[Hg] Gretel Quintana MD Work Phone: [facility] 08-19-2022 13:06-0500 Body weight 85.5 kg Braulio Hollingsworth MD Work Phone: [facility] 08-19-2022 13:06-0500 Diastolic blood pressure 82 mm[Hg] Braulio Hollingsworth MD Work Phone: [facility] 08-19-2022 13:06-0500 Systolic blood pressure 102 mm[Hg] Braulio Hollingsworth MD Work Phone: [facility] 08-09-2022 18:09-0400 Diastolic blood pressure 74 mm[Hg] No Primary Care Physician [facility] Work Phone: 08-09-2022 18:09-0400 Heart rate 107 /min No Primary Care Physician [facility] Work Phone: 08-09-2022 18:09-0400 Respiratory rate 18 /min No Primary Care Physician [facility] Work Phone: 08-09-2022 18:09-0400 SaO2% (BldA) [Mass fraction] 94 % No Primary Care Physician [facility] Work Phone: 08-09-2022 18:09-0400 Systolic blood pressure 120 mm[Hg] No Primary Care Physician [facility] Work Phone: 08-09-2022 13:51-0400 Body height 154.94 cm No Primary Care Physician [facility] Work Phone: 08-09-2022 13:51-0400 Body mass index (BMI) [Ratio] 35.9 kg/m2 No Primary Care Physician [facility] Work Phone: 08-09-2022 13:51-0400 Body temperature 98.2 [degF] No Primary Care Physician [facility] Work Phone: 08-09-2022 13:51-0400 Body weight 86.4 kg No Primary Care Physician [facility] Work Phone: 08-04-2022 13:54-0400 Diastolic blood pressure 76 mm[Hg] Melania Mitchell MD Work Phone: [facility] 08-04-2022 13:54-0400 Heart rate 100 /min Melania Mitchell MD Work Phone: [facility] 08-04-2022 13:54-0400 Respiratory rate 16 /min Melania Mitchell MD Work Phone: [facility] 08-04-2022 13:54-0400 SaO2% (BldA) [Mass fraction] 98 % Melania Mitchell MD Work Phone: [facility] 08-04-2022 13:54-0400 Systolic blood pressure 102 mm[Hg] Melania Mitchell MD Work Phone: [facility] 08-04-2022 10:48-0400 Body height 154.9 cm Melania Mitchell MD Work Phone: [facility] 08-04-2022 10:48-0400 Body mass index (BMI) [Ratio] 30.23 kg/m2 Melania Mitchell MD Work Phone: [facility] 08-04-2022 10:48-0400 Body temperature 98.2 [degF] Melania Mitchell MD Work Phone: [facility] 08-04-2022 10:48-0400 Body weight 72.58 kg Melania Mitchell MD Work Phone: [facility] 07-08-2022 15:30-0400 Body temperature 98.2 [degF] No Primary Care Physician [facility] Work Phone: 07-08-2022 15:30-0400 Diastolic blood pressure 78 mm[Hg] No Primary Care Physician [facility] Work Phone: 07-08-2022 15:30-0400 Heart rate 89 /min No Primary Care Physician [facility] Work Phone: 07-08-2022 15:30-0400 Respiratory rate 14 /min No Primary Care Physician [facility] Work Phone: 07-08-2022 15:30-0400 SaO2% (BldA) [Mass fraction] 98 % No Primary Care Physician [facility] Work Phone: 07-08-2022 15:30-0400 Systolic blood pressure 124 mm[Hg] No Primary Care Physician [facility] Work Phone: 06-30-2022 00:36-0400 Diastolic blood pressure 76 mm[Hg] No Primary Care Physician [facility] Work Phone: 06-30-2022 00:36-0400 Heart rate 79 /min No Primary Care Physician [facility] Work Phone: 06-30-2022 00:36-0400 Respiratory rate 16 /min No Primary Care Physician [facility] Work Phone: 06-30-2022 00:36-0400 SaO2% (BldA) [Mass fraction] 96 % No Primary Care Physician [facility] Work Phone: 06-30-2022 00:36-0400 Systolic blood pressure 113 mm[Hg] No Primary Care Physician [facility] Work Phone: 06-29-2022 23:48-0400 Body temperature 98.9 [degF] No Primary Care Physician [facility] Work Phone: 06-29-2022 18:00-0400 Body mass index (BMI) [Ratio] 33 kg/m2 No Primary Care Physician [facility] Work Phone: 06-29-2022 18:00-0400 Body weight 79.37 kg No Primary Care Physician [facility] Work Phone: Encounters Encounter Date Encounter Type Care Provider Facility Start: 08-01-2025 ambulatory No Primary Care Physici an Facility:[facility] Start: 07-09-2025 End: 07-09-2025 ambulatory No Primary Care Physician Facility:[facility] Start: 07-09-2025 End: 07-09-2025 ambulatory No Primary Care Physician Facility:[facility] Start: 07-03-2025 End: 07-03-2025 ambulatory No Primary Care Physician Facility:[facility] Start: 07-03-2025 End: 07-03-2025 ambulatory No Primary Care Physician Facility:[facility] Start: 06-26-2025 End: 06-26-2025 ambulatory RAMA Dinesh [facility] Start: 06-20-2025 End: 06-20-[address] [facility] Dinesh [facility] Start: 06-06-2025 End: 06-06-2025 ambulatory Rama Stuart Facility:[facility] Start: 05-30-2025 End: 05-30-2025 ambulatory No Primary Care Physician Facility:[facility] Start: 05-30-2025 End: 05-30-2025 ambulatory Rama Stuart Facility:[facility] Start: 05-14-2025 End: 05-14-2025 ambulatory Rama Stuart Facility:[facility] Start: 05-14-2025 End: 05-14-2025 ambulatory No Primary Care Physician Facility:[facility] Start: 05-07-2025 End: 05-07-2025 ambulatory No Primary Care Physician Facility:[facility] Start: 05-07-2025 End: 05-07-2025 ambulatory No Primary Care Physician Facility:[facility] Start: 04-09-2025 End: 04-09-2025 ambulatory No Primary Care Physician Facility:[facility] Start: 04-09-2025 End: 04-09-2025 ambulatory Remedios Jose [employer] Facility:[facility] Start: 03-15-2025 End: 03-15-2025 ambulatory Remedios Jose [employer]ION[employer] INSTALLER Facility:[facility] Start: 03-13-2025 End: 03-13-2025 ambulatory No Primary Care Physician Facility:[facility] Start: 03-13-2025 End: 03-13-2025 ambulatory Remedios [place] [employer] INSTALLER Facility:[facility] Start: 01-02-2025 End: 01-02-2025 Emergency department patient visit Mendez Gardner Facility:[facility] Start: 08-03-2024 End: 08-18-2024 ambulatory KIRSTEN MAST POWER TOOL REPAIR TECHNICIAN-HAND COMPOSITOR Facility:[facility] Start: 08-03-2024 End: 08-18-2024 Physical therapy management KIRSTEN MAST POWER TOOL REPAIR TECHNICIAN-HAND COMPOSITOR [facility] Start: 02-18-2024 End: 02-19-2024 ambulatory KIRSTEN MAST POWER TOOL REPAIR TECHNICIAN-HAND COMPOSITOR Facility:[facility] Start: 02-18-2024 End: 02-18-2024 Patient encounter procedure KIRSTEN MAST POWER TOOL REPAIR TECHNICIAN-HAND COMPOSITOR [facility] Start: 10-15-2023 End: 10-16-2023 ambulatory OSMAN TORRES PMHNP-BC Facility:[facility] Start: 10-15-2023 End: 10-15-2023 Patient encounter procedure OSMAN TORRES PMHNP-BC [facility] Start: 03-30-2023 End: 04-02-2023 Evaluation and management of inpatient MARTINEZ NÚÑEZ MD Facility:[facility] Start: 03-30-2023 End: 04-02-2023 Evaluation and management of inpatient SUNIL GRAHAM MD [facility] Start: 03-18-2023 End: 03-18-2023 ambulatory MARTINEZ NÚÑEZ MD Facility:[facility] Start: 03-15-2023 End: 03-16-2023 ambulatory SUNIL GRAHAM MD Facility:[facility] Start: 03-15-2023 End: 03-15-2023 Patient encounter procedure SUNIL GRAHAM MD [facility] Start: 03-09-2023 End: 03-14-2023 ambulatory LONG DICKERSON MD Facility:[facility] Start: 03-09-2023 End: 03-10-2023 ambulatory LONG DICKERSON MD Facility:[facility] Start: 03-09-2023 End: 03-13-2023 Outreach Lab LONG DICKERSON MD [facility] Start: 03-09-2023 End: 03-09-2023 Patient encounter procedure LONG DICKERSON MD [facility] Start: 03-07-2023 End: 03-07-2023 ambulatory MARTINEZ NÚÑEZ MD Facility:[facility] Start: 03-07-2023 End: 03-07-2023 SAME DAY STAY MARTINEZ NÚÑEZ MD [facility] Start: 03-06-2023 End: 03-06-2023 ambulatory MARTINEZ NÚÑEZ MD Facility:[facility] Start: 03-06-2023 End: 03-06-2023 SAME DAY STAY MARTINEZ NÚÑEZ MD [facility] Start: 01-26-2023 End: 01-26-2023 SAME DAY STAY MARTINEZ NÚÑEZ MD [facility] Start: 01-25-2023 End: 01-25-2023 Patient encounter procedure SUNIL GRAHAM MD [facility] Start: 01-19-2023 End: 01-19-2023 Patient encounter procedure SUNIL GRAHAM MD [facility] Start: 01-05-2023 End: 01-05-2023 Patient encounter procedure SUNIL GRAHAM MD [facility] Start: 12-03-2022 Refill Tad kirk DO Work Phone: [facility] Comment on above: Med Change Request Start: 11-18-2022 End: 11-18-2022 SAME DAY STAY SUNIL GRAHAM MD [facility] Start: 11-13-2022 End: 11-13-2022 Patient encounter procedure 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 POWER TOOL REPAIR TECHNICIAN-HAND COMPOSITOR [facility] Start: 10-29-2022 End: 10-29-2022 ambulatory CHEKO MCCLELLAND Facility:[facility] Start: 10-14-2022 End: 10-14-2022 ambulatory GRETEL QUINTANA Facility:[facility] Start: 10-14-2022 End: 10-14-2022 Patient encounter procedure Gretel Quintana MD Work Phone: Obstetrics/Gynecolog y Comment on above: Encounter for superv ision of normal first in second trimester (Primary Dx); Need for influenza vaccination; 15 weeks gestation of Start: 09-21-2022 End: 09-21-2022 ambulatory FLORENCE HEWITT Facility:[facility] Start: 09-17-2022 End: 09-17-2022 ambulatory BRAULIO HOLLINGSWORTH Facility:[facility] Start: 08-21-2022 ambulatory Braulio Hollingsworth MD Work Phone: Obstetrics/Gynecolog y Comment on above: Luz oliveira Start: 08-19-2022 End: 08-19-2022 ambulatory BRAULIO HOLLINGSWORTH Facility:[facility] Start: 08-19-2022 End: 08-19-2022 Patient encounter procedure Braulio Hollingsworth MD Work Phone: Obstetrics/Gynecolog y Comment on above: Encounter for superv ision of normal first in first trimester (Primary Dx) with uncer tain dates in first trimester (Primary Dx) Start: 08-14-2022 End: 08-14-2022 ambulatory TANESHA FRANKLINLex Facility:[facility] Start: 08-10-2022 Telephone encounter Braulio connolly MD Work Phone: Obstetrics/Gynecolog y Comment on above: Patient Update Start: 08-09-2022 End: 08-09-2022 Emergency department patient visit No Primary Care Physician [facility] Start: 08-04-2022 End: 08-04-2022 Emergency department patient visit [facility] Start: 08-04-2022 End: 08-04-2022 Emergency department patient visit Melania Mitchell MD Work Phone: [facility] Comment on above: Threatened miscarria ge in early (Primary Dx) Start: 07-20-2022 End: 07-20-2022 ambulatory No Primary Care Physician [facility] Work Phone: Start: 07-20-2022 End: 07-20-2022 Discharged Recurring No Primary Care Physician [facility] Start: 07-20-2022 Registered Recurring No Primary Care Physician [facility] Start: 07-09-2022 Telephone encounter Ldey wang MD Work Phone: [facility] Comment on above: Missed Appointment ( #1 No Show, #1 Letter) Start: 07-08-2022 End: 07-08-2022 Patient encounter procedure No Primary Care Physician [facility] Start: 06-29-2022 End: 06-30-2022 Emergency department patient visit No Primary Care Physician [facility] Start: 05-31-2022 End: 05-31-2022 Emergency department patient visit HIWOT HUDSON Facility:[facility] Start: 12-31-2021 End: 12-31-2021 Emergency department patient visit JAYDE YEAGER Facility:[facility] Start: 01-27-2021 End: 01-27-2021 ambulatory Alex [phone] Lynsey [phone] Facility:[facility] Start: 12-25-2018 Patient encounter procedure Facility:[id number] [...] Speci men Type: BLOOD SPECIMEN Ordering Facility: [facility] Address: [address] [place], [place] [id number] Performed By: #### T SPN #### [facility] [id number] [address] [place] [address] [place] Start: 08-19-2022 Antibody [...] Speci men Type: BLOOD SPECIMEN Ordering Facility: [facility] Address: [place] [address] Performed By: #### T SPN #### [facility] CLIA [id number] [place] [address] [place] Start: 08-09-2022 Transvaginal [...] of wisdom tooth (body structure) 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 POWER TOOL REPAIR TECHNICIAN-HAND COMPOSITOR Plan of Treatment Date Care Activity Detail Author Start: 08-19-2025 PAP TESTING PAP TESTING [facility] Start: 05-14-2024 PAP TESTING PAP TESTING [facility] Start: 08-19-2023 CHLAMYDIA SCREENING (18-24) CHLAMYDIA SCREENING (18-24) [facility] Start: 08-19-2023 GC (GONORRHEA) SCREE SAADIA (18-24) GC (GONORRHEA) SCREENING (18-24) [facility] Start: 10-14-2022 End: 10-14-2023 OBSTETRIC ULTRASOUND WHI OBSTETRIC ULTRASOUND WHI Anc Imaging Routine Encounter for supervision of normal first in second trimester Expected: 10/14/2022, Expires: 10/14/2023 [facility] Work Phone: Comment on above: Expected: 10/14/2022 , Expires: 10/14/2023 Start: 10-11-2022 DEPRESSION ASSESSMENT DEPRESSION ASS ESSMENT [facility] Start: 08-19-2022 End: 10-19-2022 Hepatitis B virus surface Ab [Presence] in Serum by Immunoassay [facility] Work Phone: Comment on above: Expected: 08/19/2022 , Expires: 10/19/2022 Start: 08-19-2022 End: 10-19-2022 Hepatitis C virus Ab [Presence] in Serum [facility] Work Phone: Comment on above: Expected: 08/19/2022 , Expires: 10/19/2022 Start: 08-19-2022 End: 10-19-2022 HIV 1+2 Ab [Presence] in Serum or Plasma by Immunoassay [facility] Work Phone: Comment on above: Expected: 08/19/2022 , Expires: 10/19/2022 Start: 08-19-2022 End: 08-19-2023 NUCHAL TRANSLUCENCY WHI NUCHAL TRANSLUCENCY WHI Anc Imaging Routine Encounter for supervision of normal first in first trimester Expected: 08/19/2022, Expires: 08/19/2023 [facility] Work Phone: Comment on above: Expected: 08/19/2022 , Expires: 08/19/2023 Start: 08-19-2022 End: 10-19-2022 RUBELLA IGG AB [facility] Work Phone: Comment on above: Expected: 08/19/2022 , Expires: 10/19/2022 Start: 08-19-2022 End: 10-19-2022 SYPHILIS TOTAL W/REFLEX [facility] Work Phone: Comment on above: Expected: 08/19/2022 , Expires: 10/19/2022 Start: 07-08-2022 Patient referral [facility] Work Phone: Start: 06-11-2022 Influenza vaccination INFLUENZA (#1) [facility] Start: 05-14-2022 CHLAMYDIA SCREENING (18-24) CHLAMYDIA SCREENING (18-24) [facility] Start: 05-14-2022 GC (GONORRHEA) SCRELily SAADIA (18-24) GC (GONORRHEA) SCREENING (18-24) [facility] Start: 05-11-2022 Influenza vaccination Flu vaccine (# 1) [facility] Start: 05-07-2022 Urine microalbumin profile DTAP,TDAP,TD (7 - Td or Tdap) [facility] Start: 10-11-2021 DEPRESSION ASSESSMENT DEPRESSION ASS ESSMENT [facility] Start: 05-17-2021 COVID-19 VACCINE (3 - Booster for Pfizer series) COVID-19 VACCINE (3 - Booster for Pfizer series) [facility] Start: 2020 Screening for malign ant neoplasm of cervix Pap smear [facility] Start: 2018 DTaP/Tdap/Td vaccine (1 - Tdap) DTaP/Tdap/Td vaccine (1 - Tdap) [facility] Start: 2017 HEPATITIS C SCREENING HEPATITIS C SC REENING [facility] Start: 2017 Hepatitis C screening Hepatitis C sc reen [facility] Start: 2017 HIV SCREENING HIV SCREENING [facility] Start: 2015 Screening for Chlamy jarod trachomatis Chlamydia/GC screen [facility] Start: 2014 HIV screening HIV screen [facility] Start: 2013 PEDS TO ADULT TRANSI TION ANNUAL ASSESSMENT PEDS TO ADULT TRANSITION ANNUAL ASSESSMENT [facility] Start: 2011 Depression Screen Depression Screen [facility] Start: 2011 PEDS TO ADULT TRANSI TION INITIAL DISCUSSION PEDS TO ADULT TRANSITION INITIAL DISCUSSION [facility] Start: 2010 HPV vaccine (1 - 2-d ose series) HPV vaccine (1 - 2-dose series) [facility] Start: 2009 MENINGOCOCCAL B: Consider based on risk (1 of 2 - Risk Bexsero 2-dose series) MENINGOCOCCAL B: Consider based on risk (1 of 2 - Risk Bexsero 2-dose series) [facility] Start: 2000 Varicella vaccine (1 of 2 - 2-dose childhood series) Varicella vaccine (1 of 2 - 2-dose childhood series) [facility] Start: 04-09-2000 COVID-19 VACCINE (#1) COVID-19 VACCI NE (#1) [facility] Bacteria identified in Urine by Culture URINE CULTURE Microbiology Routine Encounter for supervision of normal first in first trimester 08/19/2022 2:08 PM [facility] Work Phone: Chlamydia trachomatis+Neisseria gonorrhoeae DNA [Presence] in Unspecified specimen by CHICHO with probe detection GC/CHLAMYDIA DNA DET Lab Routine Encounter for supervision of normal first in first trimester 08/19/2022 2:13 PM [facility] Work Phone: PAP FLUID CERVICAL SCREENING PAP FLUID CERVICAL SCREENING Lab Routine Encounter for supervision of normal first in first trimester Ordered: 08/19/2022 [facility] Work Phone: Comment on above: Ordered: 08/19/2022 Patient Education [facility] Work Phone: Patient referral [facility] Work Phone: [facility] Immunizations Immunization Date Immunization Notes Care Provider Fa [facility] 08-24-2023 tetanus toxoid, redu ibis diphtheria toxoid, and acellular pertussis vaccine, adsorbed KIRSTEN MAST POWER TOOL REPAIR TECHNICIAN-HAND COMPOSITOR [facility] 02-01-2023 tetanus toxoid, redu ibis diphtheria toxoid, and acellular pertussis vaccine, adsorbed; Translations: [Boostrix (Tdap)] MARTINEZ NÚÑEZ MD [facility] Comment on above: Result Comment: [facility] [id number] 10-14-2022 influenza virus vacc ine, unspecified formulation KIRSTEN MAST POWER TOOL REPAIR TECHNICIAN-HAND COMPOSITOR [facility] 10-14-2022 influenza, injectabl e, quadrivalent, contains preservative Gretel Quintana MD Work Phone: [facility] 03-22-2021 SARS-CoV-2 mRNA (tozinameran) vaccine KIRSTEN [facility] POWER TOOL REPAIR TECHNICIAN[facility] 03-01-2021 SARS-CoV-2 mRNA (tozinameran) vaccine KIRSTEN [facility] POWER TOOL REPAIR TECHNICIAN[facility] 09-20-2020 influenza virus vacc ine, unspecified [facility] P[facility] TOOL REPAIR TECHNICIAN[facility] 09-08-2019 influenza virus vacc ine, unspecified [facility] POWER TOOL REPAIR TECHNICIAN[facility] 03-02-2018 varicella virus vaccine [facility] POWER TOOL REPAIR TECHNICIAN-[facility] 07-26-2017 influenza virus vacc ine, unspecified formulation [facility] 05-11-2017 meningococcal polysaccharide (groups A, C, Y and W-135) diphtheria toxoid conjugate vaccine (MCV4P) [facility] 02-24-2016 meningococcal polysaccharide (groups A, C, Y and W-135) diphtheria toxoid conjugate vaccine (MCV4P) Ledy Vaughn MD Work Phone: [facility] 07-05-2014 influenza virus vacc ine, unspecified formulation [facility] POWER TOOL REPAIR TECHNICIAN[facility] 07-05-2014 influenza, injectabl e, quadrivalent, preservative free Ledy Vaughn MD Work Phone: [facility] Work Phone: 02-20-2014 human papilloma viru s vaccine, quadrivalent Ledy Vaughn MD Work Phone: [facility] 02-20-2014 Human Papillomavirus Quadval KIRSTEN MAST POWER TOOL REPAIR TECHNICIAN-HAND COMPOSITOR [facility] [place] 05-18-2013 human papilloma viru s vaccine, quadrivalent Ledy Vaughn MD Work Phone: [facility] Work Phone: 05-07-2012 human papilloma viru s vaccine, quadrivalent Ledy Vaughn MD Work Phone: [facility] 05-07-2012 Meningococcal, MCV4, unspecified conjugate formulation(groups A, C, Y and W-135) Ledy Vaughn MD Work Phone: [facility] 05-07-2012 tetanus toxoid, redu ibis diphtheria toxoid, and acellular pertussis vaccine, adsorbed Ledy Vaughn MD Work Phone: [facility] 05-07-2012 varicella virus vaccine Chayo Harris MD Work Phone: [facility] 01-09-2005 diphtheria, tetanus toxoids and acellular pertussis vaccine Ledy Vaughn MD Work Phone: [facility] 01-09-2005 measles, mumps and rubella virus vaccine Ledy Vaughn MD Work Phone: [facility] 01-09-2005 poliovirus vaccine, inactivated Ledy Vaughn MD Work Phone: [facility] 04-26-2001 pneumococcal conjuga te vaccine, 7 valent Ledy Vaughn MD Work Phone: [facility] 02-17-2001 diphtheria, tetanus toxoids and acellular pertussis vaccine Ledy Vaughn MD Work Phone: [facility] Work Phone: 02-17-2001 haemophilus influenz ae type b vaccine, HbOC conjugate Ledy Vaughn MD Work Phone: [facility] Work Phone: 02-17-2001 pneumococcal conjuga te vaccine, 7 valent Ledy Vaughn MD Work Phone: [facility] 11-03-2000 measles, mumps and rubella virus vaccine Ledy Vaughn MD Work Phone: [facility] Work Phone: 11-03-2000 measles/mumps/rubell a virus vaccine KIRSTEN CISNEROS POWER TOOL REPAIR TECHNICIAN-HAND COMPOSITOR [facility] 11-03-2000 varicella virus vaccine Chayo Harris MD Work Phone: [facility] Work Phone: 05-05-2000 diphtheria, tetanus toxoids and acellular pertussis vaccine Ledy Vaughn MD Work Phone: [facility] Work Phone: 05-05-2000 haemophilus influenz ae type b vaccine, HbOC conjugate Ledy Vaughn MD Work Phone: [facility] Work Phone: 05-05-2000 hepatitis B vaccine, pediatric or pediatric/adolescent dosage Ledy Vaughn MD Work Phone: [facility] Work Phone: 05-05-2000 poliovirus vaccine, inactivated Ledy Vaughn MD Work Phone: [facility] Work Phone: 03-03-2000 diphtheria, tetanus toxoids and acellular pertussis vaccine Ledy Vaughn MD Work Phone: [facility] Work Phone: 03-03-2000 haemophilus influenz ae type b vaccine, HbOC conjugate Ledy Vaughn MD Work Phone: [facility] Work Phone: 03-03-2000 poliovirus vaccine, inactivated Ledy Vaughn MD Work Phone: [facility] Work Phone: 1999 diphtheria, tetanus toxoids and acellular pertussis vaccine Ledy Vaughn MD Work Phone: [facility] Work Phone: 1999 haemophilus influenz ae type b vaccine, HbOC conjugate Ledy Vaughn MD Work Phone: [facility] Work Phone: 1999 hepatitis B vaccine, pediatric or pediatric/adolescent dosage Ledy Vaughn MD Work Phone: [facility] Work Phone: 1999 poliovirus vaccine, inactivated Ledy Vaughn MD Work Phone: [facility] Work Phone: 1999 hepatitis B pediatri c vaccine KIRSTEN BLAYNE POWER TOOL REPAIR TECHNICIAN-HAND COMPOSITOR [facility] 1999 hepatitis B vaccine, pediatric or pediatric/adolescent dosage Ledy Vaughn MD Work Phone: [facility] Work Phone: Payers Date Payer Category Payer Self-pay [id number] 2025 Unknown [id number] 2023 Unknown [id number] 2021 Unknown [id number] 2021 Unknown [id number] 2021 Unknown [id number] 1999 Unknown [id number] 2.16. 840.1.509769.3.579.2.356 1999 Unknown [id number] 2.16. 840.1.231222.3.579.2.356 1999 Unknown [id number] 2.16.8 40.1.690151.3.579.2.419 1999 Unknown [id number] 2.16. 840.1.449792.3.579.2.668 1999 Unknown [id number] 2.16.8 40.1.847644.3.579.2.627 1999 Unknown [id number] 2.16.8 40.1.717573.3.579.2.627 1999 Unknown [id number] 2.16.8 40.1.053694.3.579.2.627 1999 Unknown [id number] 2.16.8 40.1.480928.3.579.2.627 1999 Unknown [id number] 2.16.8 40.1.820879.3.579.2.627 1999 Unknown [id number] 2.16.8 40.1.972048.3.579.2.627 1999 Unknown [id number] 2.16.8 40.1.455799.3.579.2.627 1999 Unknown [id number] 2.16.8 40.1.753442.3.579.2.627 1999 Unknown [id number] 2.16.8 40.1.159845.3.579.2.627 1999 Unknown [id number] 2.16.8 40.1.167959.3.579.2.627 1999 Unknown [id number] 2.16. 840.1.238705.3.579.2.479 1999 Unknown [id number] 2.16 840.1.622166.3.579.2479 1999 Unknown [id number] 2.16 840.1.630360.3.579.2479 Unknown [id number] Unknown [facility] [id number] Unknown [facility] [id number] Unknown [facility] [id number] Unknown [id number] 2.16.8 40.1.566428.3.579.2.462 Unknown [id number] 2.16.8 40.1.191647.3.579.2.462 Unknown [id number] 2.16.8 40.1.811592.3.579.2.462 Unknown [id number] 2.16.8 40.1.624487.3.579.2.462 Unknown [id number] 2.16.8 40.1.022193.3.579.2.462 Unknown [id number] 2.16.8 40.1.274737.3.579.2.462 Unknown [id number] 2.16.8 40.1.648040.3.579.2.462 Unknown [id number] 2.16.8 40.1.279658.3.579.2.462 Unknown [id number] 2.16.8 40.1.563481.3.579.2.462 Unknown [id number] 2.16.8 40.1.926397.3.579.2.462 Unknown [id number] 2.16.8 40.1.150929.3.579.2.462 Unknown [id number] 2.16.8 40.1.174670.3.579.2.462 Unknown [id number] 2.16.8 40.1.095520.3.579.2.462 Unknown [id number] 2.16.8 40.1.502467.3.579.2.462 Unknown [id number] 2.16.8 40.1.375093.3.579.2.462 Unknown [id number] 2.16.8 40.1.158729.3.579.2.462 Unknown [id number] 2.16.8 40.1.831966.3.579.2.462 Unknown [id number] 2.16.8 40.1.398872.3.579.2.462 Unknown [id number] 2.16.8 40.1.267448.3.579.2.462 Social History Date Type Detail Facility Start: 12-31-2021 End: 07-28-2024 Tobacco smoking status NHIS Never smoked tobacco [facility] Start: 12-31-2021 End: 08-19-2022 Tobacco use and exposure Smokeless tobacco non-user [facility] Start: 12-31-2021 End: 10-14-2022 Alcohol intake Ex-drinker (finding) [facility] Start: 06-27-2013 End: 08-19-2022 Tobacco Comment dad smokes outside [facility] Start: 2000 Sex Assigned At Female C [facility] Start: 06-28-2022 End: 08-19-2022 Exposure to SARS-CoV-2 (event) Not sure [facility] Start: 2000 Sex Assigned At Not on file S [email or web address] Work Phone: Start: 08-09-2022 End: 08-09-2022 Tobacco smoking status NHIS Unknown if ever smoked [facility] Work Phone: Start: 10-24-2020 Spouse/ Signif icant Other [facility] Work Phone: Start: 07-12-2022 [facility] Goals Date Patient Goal Desired Activity [...] bilat biceps and triceps [facility] [place] 04-02-2023 Functional Status Rooming in [facility] 04-01-2023 Functional Status [facility] 04-01-2023 Functional Status Independent [facility] 04-01-2023 Functional Status [facility] 03-30-2023 Functional Status Home independently [facility] 03-07-2023 Functional Status Ambulating in room [facility] Mental Status Date Assessment Result Facility 03-07-2023 Mental Status Orientation Oriented x 4 [facility] Clinical Notes 07-09-2022 to 02-18-2024 Laboratory [...] 02/19/2024 1:39:46 AM Ordering Provider: KIRSTEN CISNEROS [facility] 10-15-2023 Evaluation + Plan note Diagnostic Tests PendingVitamin B12 Level 10/15/23Folate Level 10/15/23 Future Scheduled TestsGlucose Level 07/20/23Lipid Profile 07/20/23 [facility] 04-02-2023 Evaluation + Plan note Extrac barbara from: Title:Clinical Document Author:LONG DICKERSON MD Date:04/02/23 Subjective Comfortable with oral Motrin Lochia small. Baby is eating well per bottle Stayed overnight due to elevated bili levels in baby Objective Looks very well. Independent in room. Abdomen: Soft, uterus firm at U- 2 Extremities: Nontender with 1+ edema VITALS CwfundFlngGDAckatZYIeI5MJE2BxiyYt(kg) 04/02 00:3136.6--266674--19/20 78.0 04/01 16:2036.5--7916---- 04/01 08:4136.1--8114---- 03/31 23:3036.6--8416---- [...] q6h, 03/30/23 19:48:00 EDT Problems (4) Anxiety ([id number]) Body mass index 30+ - obesity (457125189) (297383575) UTI (urinary tract infection) ([id number]) ASSESSMENT/PLAN: PPD #2 after . Doing very well. Home today. Extracted from: Title:Clinical Document Author:LONG DICKERSON MD Date:03/31/23 Subjective Comfortable with oral Motrin Lochia small. Baby is nursing well. . Objective Looks very well. Independent in room. CVS: RRR Lungs: CTA B Abdomen: Soft, uterus firm at U- 1 Extremities: Nontender with 1+ edema VITALS JmgbqvZueeOWJkwmkWOSvG6LNJ2OpeqUi(kg) 03/31 08:3636.8--7816----03/30 78.0 03/31 05:4936--8216---- 03/31 02:00 RA 03/30 20:15----58558--SN 03/30 20:00----8018--RA 24 Hr Tmax: 36.8 at [...] q6h, 03/30/23 19:48:00 EDT Problems (4) Anxiety ([id number]) Body mass index 30+ - obesity (757899119) (767602473) UTI (urinary tract infection) ([id number]) ASSESSMENT/PLAN: PPD #1 after [employer] vacuum delivery [...] SYSTEMS: All negative ACTIVE PROBLEMS: (4) Anxiety ([id number]) Body mass index 30+ - obesity (000779731) (726063079) UTI (urinary tract infection) ([id number]) ALLERGIES: (1) CeleXA FAMILY HISTORY: No inheritable diseases. SOCIAL HISTORY: . Denies tobacco use Denies alcohol use. No illicit drug use. PHYSICAL EXAM: VITALS: HybdpwAgerPSBwngnFQKnN5ATC1IbkrJd(kg) 03/30 10:5735.6--7518----03/30 78.0 03/30 10:0535.9 03/30 09:0536.1 [...] Date:04/20/2023 02:00:00 PM Scheduled Provider:SUNIL GRAHAM MD Location:[facility] Appointment Type:[facility] 06-22-2023 Note day #2 progress note: [...] MD on 04/01/2023 09:01 AM [facility]06-21-2023 Hospital Discharge instructions Patient Education 03/31/2023 [...] work with your health care provider or eap consultant. If you are not : ?Avoid [...] about methods of control (contraception). Medicines Take fthv-shs-jvbkfrf and prescription medicines only as told by [...] 07/24/2008 Document Revised: 09/30/2018 Document Reviewed: 07/11/2018 [employer] Patient Education 2020 [employer]. 03/31/2023 12:34:52 7b- Depression and Blues (07/2020) [...] psychosis. Often, a screening tool called the [place] Depression Scale is used to diagnose depression [...] music. Avoid alcohol. Ask for help with clinical microbiologist, cooking, grocery shopping, or running errands as needed. Do nottry to do everything. Talk to people close to you about how you are feeling. Get support from your partner, family members, and friends. Try to stay positive in how you think. Think about the things you are grateful for. Do not spend a lot of time alone. Only take qixo-djl-jbpzfcx or prescription medicine as directed by your [...] or get worse. Resource: [facility] Patient Information [address] [facility] This information is not intended to replace advicegiven to you by your health care provider. Make sure you discuss any questions you have with your health care provider. Follow Up Care 03/30/2023 06:39:24 With:LONG DICKERSON Address: [address] [place] [address] [place] [address]- [phone] Business (1) When: Unknown [facility] 06-21-2023 Note Date of Service 03/31/23 Chief Complaint Subjective 22 [facility] Doing well. pain well [...] 1 herlinda, Perineum, AsDirected benzocaine topical 20% Murphy 1 spray(s), Perineum, q1h bisacodyl 10 mg [...] MD on 03/31/2023 11:37 AM [facility]06-21-2023 Anesthesiology Consult note Patient: LUZ OLIVEIRA Age: 22 years Sex: Female : 2000 Associated Diagnoses: None Author: JENNIFER MERA POWER TOOL REPAIR TECHNICIAN-KNOCKOUT MACHINE OPERATOR Assessment Postanesthesia assessment Vitals: Vital signs from flowsheet : Vital Signs 03/31/2023 5:49 EDT Temperature Temporal Artery 36 DegC Heart Rate Monitored 82 bpm Respiratory Rate 16 br/min Systolic Blood Pressure Non-Invasive 109 mmHg Diastolic Blood Pressure Non-Invasive 54 mmHg [facility] 03/30/2023 20:15 EDT Heart Rate Monitored [...] mmHg Diastolic Blood Pressure Non-Invasive 94 mmHg [facility] 03/30/2023 18:56 EDT Heart Rate Monitored 98 [...] MERA on 03/31/2023 06:15 AM [facility]06-20-2023 Note Patient seen at 1730 and [...] MD on 03/30/2023 05:30 PM [facility]-20-2023 Note Patient seen at 1730 and [...] MD on 03/30/2023 05:30 PM [facility]-20-2023 Note Patient seen at 1730 and [...] MD on 03/30/2023 05:30 PM [facility]2023 Note CHIEF COMPLAINT: Membranes ruptured with [...] SYSTEMS: All negative ACTIVE PROBLEMS: (4) Anxiety ([id number]) Body mass index 30+ - obesity (879342061) (295730422) UTI (urinary tract infection) ([id number]) ALLERGIES: (1) CeleXA FAMILY HISTORY: No inheritable diseases. SOCIAL HISTORY: . Denies tobacco use Denies alcohol use. No illicit drug use. PHYSICAL EXAM: VITALS: SccuhmRtbxGWJjnowUCSsO3HTS0MqvlVs(kg) 03/30 10:5735.6--7518----03/30 78.0 03/30 10:0535.9 03/30 09:0536.1 [...] MD on 04/02/2023 11:08 AM [facility]-20-2023 Anesthesiology Consult note Patient: LUZ OLIVEIRA Age: 22 years Sex: Female : 2000 Associated Diagnoses: None Author: JENNIFER MERA POWER TOOL REPAIR TECHNICIAN-KNOCKOUT MACHINE OPERATOR Preoperative Information laboring Anesthesia history Patient's [...] Problem list: Medical Anxiety / SNOMED CT [id number] / Confirmed Body mass index 30+ - obesity / SNOMED CT 847073525 / Confirmed / SNOMED CT 630809816 / Confirmed UTI (urinary tract infection) / SNOMED CT [id number] / Confirmed, Active Problems (4) Anxiety Body mass index 30+ - obesity UTI (urinary tract infection) Histories Past Medical History: Active Anxiety ([id number]) UTI (urinary tract infection) ([id number]) Family History: Cancer Grandparent Comments: 10/22/2022 14:27 AUGIE Navarro Poonam Sanchez SENIOR GRANT WRITER maternal, brain Cardiac pacemaker Mother Diabetes mellitus Mother Asthma Grandparent Breast cancer Grandparent Heart disease Mother HTN - Hypertension Father COPD Grandparent Diabetes Grandparent Procedure history: [place] tooth ([id number]). Social History Social & Psychosocial Habits Alcohol [...] Signs(last 24 hrs) Last Charted Heart Rate Meclkqwwd44 bpm (MAR 30 10:57) Resp Rate 18 br/min (MAR 30 10:57) ZZO657 mmHg (MAR 30 10:57) DBPL 59mmHg (MAR 30 10:57) BMI32.47 (MAR 30 07:49) Measurements from flowsheet : Measurements 03/30/2023 7:49 EDT Height 155.0 cm Admission Weight 78 kg [place] Body Weight 47.85 kg BSA Admission 1.77 [...] Height 155.0 cm Admission Weight 78 kg [place] Body Weight 47.85 kg BSA Admission 1.77 [...] Baby For Adoption No Surrogate No Discharge Stitzer Physician P [facility] Participant No Safe Sleep Environment for [...] Teaching Evaluation Refused information Preferred Written Language Sudanese Preferred Spoken Language Sudanese Chief Complaint SROM Mode of Arrival Ambulatory Information Given by Patient Patient's Current Physicians Dr Graham Emergency Contact Number Luis Daneil Oliveira [phone] Belongings At Bedside Cell phone, Family Services Manager Personal Home Medications Received No home medications [...] FHR Interpretation Category: Category One 03/30/2023 7:14 [facility] History and Physical History and Physical . Assessment and Plan [place] [employer] Anesthesiologists (ASA) physical status classification: Class II. Anesthetic Preoperative Plan Anesthetic technique: Epidural. Informed consent: signed by patient. Digitally Signed by JENNIFER MERA on 03/30/2023 01:37 PM [facility]06-20-2023 Note Date of Service 03/30/23 Chief Complaint SROM History of Present Illness 22 yo G1@39.2 presents with large gush of fluid around 0600 and regular contractions. c/bobesity and recent growth US AC 7%le overall 15%le. Noted blood tinged fluid. Growth at 37 weeks for obesity showed borderline low fluid 5 cm, growth in 15%le. GASTROENTEROLOGY TECHNICIAN history: Menarche: Menses: Menopause: n/a HRT: n/a [...] of breast bx: no Colonoscopy: DXA: Family GASTROENTEROLOGY TECHNICIAN history: Breast/colon/ovarian/uterine cancer: MGM w breast ca [...] infection) Historical No qualifying data Procedure/Surgical History [place] tooth Medications Home Medications (5) Active AD [...] MD on 03/30/2023 07:30 AM [facility]05-28-2023 Hospital Discharge instructions Patient Education 03/07/2023 20:26:05 7 - Labor and Delivery Outpatient Instructions (CUSTOM) [employer]OR AND DELIVERY OUTPATIENT HOME-GOING INSTRUCTIONS _X_ [...] crackers, bananas, Jell-O, cooked carrots, applesauce. ___ Traverse diet. Avoid caffeine, chocolate, alcohol, spiced/greasy foods. [...] the nearest Emergency Room for assistance. Form [id number] D: 09/18 Document Released: 09/27/2006 Document Revised: 09/15/2012 Document Reviewed: 09/27/2006 [employer] Patient Information 2012 [employer]. Follow Up Care 03/07/2023 19:56:20 With:WILTON AN, MARTINEZ Bautista Address: [address] [place] [address] [place] [address] [phone] When:03/09/2023 [facility] 05-27-2023 Hospital Discharge instructions Patient Education 03/06/2023 18:27:44 7 - Labor and Delivery Outpatient Instructions (CUSTOM) WHITE POST LABOR AND DELIVERY OUTPATIENT HOME-GOING INSTRUCTIONS _X_ [...] crackers, bananas, Jell-O, cooked carrots, applesauce. ___ [place]verse diet. Avoid caffeine, chocolate, alcohol, spiced/greasy foods. [...] the nearest Emergency Room for assistance. Form [id number] D: 09/18 Document Released: 09/27/2006 Document Revised: 09/15/2012 Document Reviewed: 09/27/2006 [employer] Patient Information 2011 [employer]. [facility] 04-18-2023 Hospital Discharge instructions Patient Education 01/26/2023 03:27:22 7 - Labor and Delivery Outpatient Instructions (CUSTOM) [facility] AND DELIVERY OUTPATIENT HOME-GOING INSTRUCTIONS _X_ [...] crackers, bananas, Jell-O, cooked carrots, applesauce. ___ Traverse diet. Avoid caffeine, chocolate, alcohol, spiced/greasy foods. [...] the nearest Emergency Room for assistance. Form [id number] D: 09/18 Document Released: 09/27/2006 Document Revised: 09/15/2012 Document Reviewed: 09/27/2006 ExitCare Patient Information 2012 [employer]. Follow Up Care 01/26/2023 00:53:10 With:Follow up with primary care provider Address:Unknown When: Unknown [facility] 02-25-2023 Miscellaneous Notes* Telephone Encounter - Alex Garcia DO - 12/05/2022 5:08 PM EST Not a CFM patient documented in this encounterBar[facility] Hospital Discharge instructions Patient Education 11/18/2022 [...] crackers, bananas, Jell-O, cooked carrots, applesauce. ___ Traverse diet. Avoid caffeine, chocolate, alcohol, spiced/greasy foods. [...] the nearest Emergency Room for assistance. Form [id number] D: 09/18 Document Released: 09/27/2006 Document Revised: 09/15/2012 Document Reviewed: 09/27/2006 ExitCare Patient Information 2012 [employer]. Follow Up Care 11/18/2022 11:50:05 With:SUNIL GRAHAM Address: [address] [place] [address] [place] [address] [phone] Business (1) When: Unknown [facility] 01-19-2023 NoteHNO ID: [id number] Author: Tad Shaw DO Service: Obstetrics Author [...] with plan. Tad Shaw DO 4:21 AM 10/29/2022[facility]01-19-2023 NoteHNO ID: [id number] Author: Tad Shaw DO Service: Obstetrics Author [...] intractable nausea/vomiting. She was sent her from [facility] Main ED. In the ED, patient was [...] Diagnosis Date Cognitive disorder IEP per the [facility] Kidney stone [...] Oliveira DATE: October 29, 2022 TIME: 3:25 [facility]01-19-2023 NoteCOVID 19 RESULT: SARS-CoV-2 (Agent of COVID-19) Not Detected by RT-PCR or equivalent method. This test has been authorized by FDA under an Emergency Use Authorization (EUA). INFLUENZA A PCR: Negative for Influenza A by RT-PCR INFLUENZA B PCR: Negative for Influenza B by RT-PCR RSV PCR: Negative for Respiratory Syncytial Virus (RSV) by [facility] CenterComment on above:Performed By: #### [id number] ####[facility] LABORATORYCLIA [id number] [place] [address] [place] [id number] Miscellaneous Notes* Quick Notes - Gretel Quintana [...] vaccine). Gretel Quintana MD documented in this encounterBarberton [facility]01-04-2023 Nurse Note* Aimee Desir Ma - 10/14/2022 11:01 AM EST Movement? Flutters Vaginal Bleeding: NO Vaginal fluid leakage of fluid: NO Contractions: no contractions documented in this encounterBarberton Citizens Hospital12-08-2022 NoteHNO ID: [id number] Author: Braulio Hollingsworth MD Service: ? Author Type: Physician Type: Progress Notes Filed: 09/17/2022 2:28 PM Note Text: Please refer to quick note and flow sheet. [facility]2022 NoteHNO ID: [id number] Author: Braulio Hollingsworth MD Service: ? Author [...] No Multivitamin with Folic acid: Yes Occupation: [employer] student Jain or heritage: Yes Would refuse blood transfusion if medically necessary: no BMI 35.62 kg/(m2) Patient BMI over 30? 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 loratadine (CLARITIN) 10 mg tablet Take 1 tablet by mouth once daily. fluticasone (FLONASE) 50 mcg/actuation nasal spray Use 1 Murphy in each nostril once daily. No current [...] 4 weeks or sooner prn. Braulio Hollingsworth [facility]11-09-2022 NoteHNO ID: [id number] Author: Braulio Hollingsworth MD Service: ? Author Type: Physician Type: Progress Notes Filed: 08/19/2022 5:28 PM Note Text: OB point of care ultrasound was performed. See imaging tab for details. Braulio Hollingsworth [facility]11-09-2022 History of Present illness Narrative* Braulio Hollingsworth [...] No Multivitamin with Folic acid: Yes Occupation: [employer] student Jain or heritage: Yes Would refuse blood transfusion if medically necessary: no BMI 35.62 kg/(m^2) Patient BMI over 30? 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 No current [...] prn. Braulio Hollingsworth MD documented in this encounterBarberton Citizens Hospital11-09-2022 Instructions* Patient Instructions* Braulio Hollingsworth MD - 08/19/2022 1:48 PM EST Please select the following link to access the [facility] Your Guide to a Healthy . [email or web address] documented in this encounterBarberton Citizens Hospital11-09-2022 History of Present illness Narrative* Braulio Hollingsworth MD - 08/19/2022 1:41 PM EST OB point of care ultrasound was performed. See imaging tab for details. Braulio Hollingsworth MD documented in this encounterBarberton Citizens Hospital11-09-2022 Nurse Note* Jennifer Stevenson MA - 08/19/2022 1:07 PM EST Movement? Too early Vaginal Bleeding: YES/MD NOTIFIED-Has had for 2 weeks Vaginal fluid leakage of fluid: NO Contractions: no contractions documented in this encounterBarberton Citizens Hospital11-04-2022 NoteHNO ID: [id number] Author: Zuhair Condon DO Service: Obstetrics Author [...] 14, 2022 TIME: 9:44 PM PAGER/CONTACT #: [phone]. [facility]22 NoteHNO ID: [id number] Author: Zuhair Condon DO Service: Obstetrics Author [...] Patient states that she originally went to [place] ED on 08/09/22. 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 No [...] at time of discharge (more content not included)...[facility]10-31-2022 Miscellaneous Notes* Telephone Encounter - Nisa Murphy - 08/10/2022 9:31 AM EDT Patient was in ED for bleeding. Not currently bleeding has new OB appointment 08/19. Please advise if you would like to see her sooner. documented in this encounterBarberton Citizens Hospital10-25-2022 Hospital Discharge instructions* Discharge Instructions* Melania Mitchell MD - 08/04/2022 1:22 PM EDT Please call your OB today to schedule a follow up visit in the next 2 days. * Attachments The following attachments cannot be sent through Care Everywhere. * Miscarriage: Threatened (Sudanese) documented in this encounterSUMMA Work Phone: [phone]) 862-280209-29-2022 Miscellaneous Notes* Telephone Encounter - Verónica Alegre [...] 09, 2022 12:24 PM documented in this encounterBarberton Citizens HospitalEvaluation + Plan note Future Appointments Appointment Date:11/16/2022 02:00:00 PM Scheduled Provider:SUNIL GRAHAM MD Location:[facility] Appointment Type: OV OB Routine Follow Up [facility] Evaluation + Plan note Future Appointments Appointment Date:12/14/2022 02:15:00 PM Scheduled Provider:SUNIL GRAHAM MD Location[facility] Appointment Type: OV OB Routine Follow Up Appointment Date:12/23/2022 08:30:00 AM Scheduled Provider: Location:[facility] Appointment Type:US OB > 14 wks Future Scheduled Tests Radiology* US OB Limited/Transvaginal 01/11/23 * US OB > 14 weeks 12/23/22 [facility] Evaluation + Plan note Future Appointments [...] Radiology* US OB Limited/Transvaginal 01/11/23 [facility] Evaluation + Plan note Future Appointments Appointment Date:01/25/2023 01:00:00 PM Scheduled Provider:SUNIL GRAHAM MD Location:[facility] Appointment Type: OV OB Routine Follow [...] Radiology* US OB Limited/Transvaginal 01/11/23 [facility] Evaluation + Plan note Future Appointments Appointment Date:02/01/2023 01:15:00 PM Scheduled Provider:SUNIL GRAHAM MD Location:[facility] Appointment Type:[facility] OB Routine Follow Up Appointment Date:03/15/2023 02:00:00 PM Scheduled Provider: Location:[facility] Appointment Type:US OB > 14 wks [...] OB > 14 weeks 03/15/23 [facility] Evaluation + Plan note Future Appointments Appointment Date:03/09/2023 01:45:00 PM Scheduled Provider:LONG DICKERSON MD Location:[facility] Appointment Type:[facility] OB Routine Follow Up Appointment Date:03/15/2023 02:00:00 PM Scheduled Provider: Location:[facility] Appointment Type:US OB > 14 wks [...] OB > 14 weeks 03/15/23 [facility] Evaluation + Plan note Future Appointments Appointment Date:03/15/2023 02:00:00 PM Scheduled Provider: Location:[facility] Appointment Type:US OB > 14 wks Appointment Date:03/16/2023 02:30:00 PM Scheduled Provider:LONG DICKERSON MD Location:[facility] Appointment Type:[facility] OB Routine Follow Up Diagnostic Tests [...] OB > 14 weeks 03/15/23 [facility] Evaluation + Plan note Future Appointments Appointment Date:03/15/2023 02:00:00 PM Scheduled Provider: Location:[facility] Appointment Type:US OB > 14 wks Appointment Date:03/16/2023 02:30:00 PM Scheduled Provider:LONG DICKERSON MD Location:[facility] Appointment Type:[facility] OB Routine Follow Up Future Scheduled [...] OB > 14 weeks 03/15/23 [facility] Evaluation + Plan note Future Appointments Appointment Date:03/16/2023 02:30:00 PM Scheduled Provider:LONG DICKERSON MD Location:[facility] Appointment Type: OV OB Routine Follow [...] Radiology* US OB Limited/Transvaginal 01/11/23 [facility] Evaluation + Plan note Future Appointments Appointment Date:07/28/2024 08:30:00 AM Scheduled Provider:KIRSTEN CISNEROS Location:[facility] Appointment Type:PC Wellness Annual Future Scheduled Tests Laboratory* Glucose Level 07/20/23 * Lipid Profile 07/20/23 [facility] Evaluation + Plan note Future Appointments Appointment Date:08/25/2024 07:30:00 AM Scheduled Provider:KIRSTEN CISNEROS Location:[facility] Appointment Type:PC OV Future Scheduled Tests Radiology* CT Head or Brain w/o Contrast 07/28/24 * CT Spine Cervical w/o Contrast 07/28/24 [facility] Evksveobim note* Diagnosis Threatened miscarriage in early - Primary Threatened , unspecified as to episode of care documented in this encounter [facility] Work Phone: Evaluation note* Diagnosis Onset Date Resolution Status Acute lumbar myofascial strain acute Blunt abdominal trauma acute Cervical strain, acute acute Chest wall contusion acute Concussion without loss of consciousness acute Lumbar radiculopathy, acute acute [facility] Work Phone: Evaluation note* Diagnosis Encounter for supervision of normal first in first trimester- Primary Supervision of normal first documented in this encounter [facility] note* Diagnosis with uncertain dates in first trimester- Primary documented in this encounter [facility] note* Diagnosis Encounter for supervision of normal first in second trimester- Primary Supervision of normal first Need for influenza vaccination Need for prophylactic vaccination and inoculation against influenza 15 weeks gestation of state, incidental documented in this encounter [facility] Narrative No data available for this section [facility] Hospital Discharge instructions Additional Instructions Follow-up with your LIQUID FERTILIZER SERVICER. Return if you have worsening symptoms or worsening abdominal pain/fever.[facility] Work Phone: Hospital Discharge instructions No data available for this section [facility] Progress note No data available for this section [facility] Reason for referral (narrative)* Diagnostic Procedure Only (Routine) - Pending Review Specialty Diagnoses / Procedures Referred By Contac t Referred To Contact [facility] Diagnoses Encounter for supervision of normal first in first trimester Procedures NUCHAL TRANSLUCENCY WHI US NUCHAL TRANSLUCENCY 1ST GESTATION Braulio Hollingsworth MD [address] [facility] [address] [place] [address] [facility] [address] [place] [address] Referral ID Status Reason Start Date Expiration Date Visits Requested Visits Authorized [id number] Pending Review Auto-Generat ed Referral 08/19/2022 08/19/2023 1 1 [facility]ative[facility] Diagnostic Procedure Only (Routine) - Authorized Specialty Diagnoses / Procedures Referred By Contac t Referred To Contact [facility] Diagnoses Encounter for supervision of normal first in second trimester Procedures OBSTETRIC ULTRASOUND WHI US PREG UTERUS AFTER 1ST TRIMEST GESTATION Gretel Quintana MD [address] [phone] [facility] [address] [place] [address] Referral ID Status Reason Start Date Expiration Date Visits Requested Visits Authorized [id number] Authorized Auto-Generat ed Referral 10/14/2022 10/14/2023 1 1 [facility] Summary Purpose Family History No Family History Records Found Relationship Condition Age at Onset Recorded Date/T elli grandmother Malignant neoplasm of breast Unknown Malignant neoplasm of brain Unknown grandfather Cerebrovascular accident (CVA) Unknown mother Diabetes mellitus Unknown Advance Directives No Advanced Directives Records Found Advance Directive Response Recorded Date/ Time Advance Directives No June 8:50am Living Will No August 09 2:12pm Power of Auto Transport Driver No August 09, 2022 2:12pm Advance Directive Response Recorded Date/ Time Advance Directives No June 7:50am Living Will No August 09 1:12pm Power of Auto Transport Driver No August 09, 2022 1:12pm Chief Complaint [...] section and content) DATE CREATED AUTHOR 09/19/2018 [facility] DATE CREATED AUTHOR AUTHOR'S ORGANIZ ATION 12/26/2018 [facility] DATE CREATED AUTHOR AUTHOR'S ORGANIZ ATION 04/29/2019 [facility] DATE CREATED AUTHOR AUTHOR'S ORGANIZ ATION 12/25/2019 [facility] DATE CREATED AUTHOR AUTHOR'S ORGANIZ ATION 03/17/2021 [facility] DATE CREATED AUTHOR AUTHOR'S ORGANIZ ATION 08/29/2021 [facility] DATE CREATED AUTHOR AUTHOR'S ORGANIZ ATION 08/05/2022 [facility] DATE CREATED AUTHOR AUTHOR'S ORGANIZ ATION 11/13/2022 [facility] DATE CREATED AUTHOR AUTHOR'S ORGANIZ ATION 11/14/2022 [facility] DATE CREATED AUTHOR AUTHOR'S ORGANIZ ATION 02/20/2024 [facility] DATE CREATED AUTHOR AUTHOR'S ORGANIZ ATION 08/20/2024 [facility] DATE CREATED AUTHOR AUTHOR'S ORGANIZ ATION 06/27/2025 [facility] DATE CREATED AUTHOR AUTHOR'S ORGANIZ ATION 07/27/2025 [facility] Source Comments (unrecognize d section and content) In the event this informatio n is protected by the Federal Confidentiality of Alcohol and Drug Abuse Patient Records regulations: The Federal rules restrict any use of the information to criminally investigate or prosecute any alcohol or drug abuse patient.[facility] HospitalIn the event this information is protected by the Federal Confidentiality of Alcohol and Drug Abuse Patient Records regulations: The Federal rules restrict any use of the information to criminally investigate or prosecute any alcohol or drug abuse patient.[facility] HospitalIn the event this information is protected by the Federal Confidentiality of Alcohol and Drug Abuse Patient Records regulations: The Federal rules restrict any use of the information to criminally investigate or prosecute any alcohol or drug abuse patient.[facility] HospitalIn the event this information is protected by the Federal Confidentiality of Alcohol and Drug Abuse Patient Records regulations: The Federal rules restrict any use of the information to criminally investigate or prosecute any alcohol or drug abuse patient.[facility] HospitalIn the event this information is protected by the Federal Confidentiality of Alcohol and Drug Abuse Patient Records regulations: The Federal rules restrict any use of the information to criminally investigate or prosecute any alcohol or drug abuse patient.[facility] HospitalIn the event this information is protected by the Federal Confidentiality of Alcohol and Drug Abuse Patient Records regulations: The Federal rules restrict any use of the information to criminally investigate or prosecute any alcohol or drug abuse patient.[facility] HospitalIn the event this information is protected by the Federal Confidentiality of Alcohol and Drug Abuse Patient Records regulations: The Federal rules restrict any use of the information to criminally investigate or prosecute any alcohol or drug abuse patient.[facility] Reason for Visit (unrecogniz ed section [...] Member Role: Primary Care Physician Address: Address: [address] [place] [phone] Care Team Related Persons Name: RASHMI MTZ Address: Home [address] [place] [phone] [place] Name: MARGARITO MTZ Address: Home [address] [place] [phone] [place] Name: MARGARITO MTZ Address: Home [address] [place] [phone] [place] Name: MARGARITO MTZ Address: Home [address] [place] [phone] [place] Name: MARGARITO MTZ Address: Home [address] [place] [phone] [place] Name: MARGARITO MTZ Address: Home [address] [place] [phone] [place] Name: MARGARITO MTZ Address: Home [address] [place] [phone] [place] Name: MARGARITO MTZ Address: Home [address] [place] [phone] [place] Name: MARGARITO MTZ Address: Home [address] [place] [phone] [place] Care Team Personnel Name: MAXWELL GOMEZ MD Member Role: Primary Care Physician Address: Address: [address] [place], [place] [phone] Care Team Related Persons Name: RASHMI MTZ Address: Home [address] [place] [phone] [place] Name: MARGARITO MTZ Address: [address] [place], [place] [phone] [place] Name: MARGARITO MTZ Address: Home [address] [place], [place] [phone] [place] Name: MARGARITO MTZ Address: Home [address] [place] [phone] [place] Name: MARGARITO MTZ Address: Home [address] [place] [phone] [place] Name: MARGARITO MTZ Address: Home [address] [place] [phone] [place] Name: MARGARITO MTZ Address: Home [address] [place] [phone] [place] Name: MARGARITO MTZ Address: Home [address] [place] [address] [phone] [place] Name: MARGARITO MTZ Address: Home [address] [place] [phone] Patient Care team informatio n (unrecognized section and content) Care Team Personnel Name: MAXWELL GOMEZ MD Member Role: Primary Care Physician Address: Address: [address] [place], [place] [phone] [place] Care Team Related Persons Name: RASHMI MTZ Address: Home [address] [phone] [place] Name: MARGARITO MTZ Address: Home [address] [place] [phone] [place] Name: MARGARITO MTZ Address: Home [address] [place] [phone] [place] Name: MARGARITO MTZ Address: Home [address] [place] [phone] [place] Name: ELVIA MTZRI Address: Home [address] [place] [phone] [place] Name: MARGARITO MTZ Address: Home [address] [place], [place] [phone] [place] Name: MARGARITO MTZ Address: Home [address] [place], [place] [phone] [place] Name: MARGARITO MTZ Address: [address] [place], [place] [phone] [place] Name: MARGARITO MTZ Address: Home [address] [place], [place] [phone] [place] Care Team Personnel Name: MAXWELL GOMEZ MD Member Role: Primary Care Physician Address: Address: [address] [place] [phone] [place] Care Team Related Persons Name: RASHMI MTZ Address: Home [address] [phone] [place] Name: MARGARITO MTZ Address: [address] [place], [place] [phone] [place] Name: MARGARITO MTZ Address: [address] [place], [place] [phone] [place] Name: MARGARITO MTZ Address: [address] [place], [place] [phone] [place] Name: MARGARITO MTZ Address: [address] [place], [place] [phone] [place] Name: MARGARITO MTZ Address: [address] [place], [place] [phone] [place] Name: MARGARITO MTZ Address: [address] [place], [place] [phone] [place] Name: MARGARITO MTZ Address: [address] [place], [place] [phone] [place] Name: MARGARITO MTZ Address: [address] [place], [place] [phone] [place] Care Team Personnel Name: SUNIL GRAHAM MD Position: P4 LIQUID FERTILIZER SERVICER Provider Member Role: Primary Care Physician Address: Address: [address] [place], [place] [address]s [facility] [place], [place] [address] Care Team Related Persons Name: RASHMI MTZ Address: Home [address] [phone] [place] Name: MARGARITO MTZ Address: [address] [place], [place] [phone] [place] Name: MARGARITO MTZ Address: [address] [place], [place] [phone] [place] Name: MARGARITO MTZ Address: [address] [place], [place] [phone] [place] Name: ELVIA MTZRI Address: [address] [place], [place] [phone] [place] Name: ELVIA MTZRI Address: [address] [place], [place] [phone] [place] Name: ELVIA MTZRI Address: [address] [place], [place] [phone] [place] Name: ELVIA MTZRI Address: [address] [place], [place] [phone] [place] Name: ELVIA MTZRI Address: [address] [place], [place] [phone] [place] Care Team Personnel Name: SUNIL GRAHAM MD Position: P4 LIQUID FERTILIZER SERVICER Provider Member Role: Primary Care Physician Address: Address: [address] [place] [phone] Care Team Related Persons Name: RASHMI MTZ Address: Home [address] [phone] [place] Name: MARGARITO MTZ Address: [address] [place], [place] [phone] [place] Name: ELVIA MTZRI Address: [address] [place], [place] [phone] [place] Name: MARGARITO MTZ Address: [address] [place], [place] [phone] [place] Name: ELVIA MTZRI Address: [address] [place], [place] [phone] [place] Name: MARGARITO MTZ Address: [address] [place], [place] [phone] [place] Name: MARGARITO MTZ Address: [address] [place], [place] [phone] [place] Name: MARGARITO MTZ Address: [address] [place], [place] [phone] [place] Name: MARGARITO MTZ Address: [address] [place], [place] [phone] [place] Care Team Personnel Name: MARTINEZ NÚÑEZ MD Position: P4 LIQUID FERTILIZER SERVICER Provider Member Role: Primary Care Physician Address: Address: [address] [place] [id number] Care Team Related Persons Name: RASHMI MTZ Address: Home [address] [phone] [place] Name: MARGARITO MTZ Address: [address] [place], [place] [phone] [place] Name: MARGARITO MTZ Address: [address] [place], [place] [phone] [place] Name: MARGARITO MTZ Address: [address] [place], [place] [phone] [place] Name: MARGARITO MTZ Address: [address] [place], [place] [phone] [place] Name: MARGARITO MTZ Address: [address] [place], [place] [phone] [place] Name: MARGARITO TMZ Address: [address] [place], [place] [phone] [place] Name: MARGARITO MTZ Address: Home [address] [place] [phone] [place] Name: MARGARITO MTZ Address: [address] [place] [id number] Care Team Personnel Name: MARTINEZ NÚÑEZ MD Position: P4 LIQUID FERTILIZER SERVICER Provider Member Role: Primary Care Physician Address: Address: [address] [place] [address] Care Team Related Persons Name: RASHMI MTZ Address: Home [address] [phone] [place] Name: MARGARITO MTZ Address: [address] [place], [place] [phone] [place] Name: MARGARITO MTZ Address: [address] [place], [place] [phone] [place] Name: MARGARITO MTZ Address: [address] [place], [place] [id number] [place] Name: MARGARITO MTZ Address: [address] [place], [place] [id number] [place] Name: MARGARITO MTZ Address: [address] [place], [place] [id number] [place] Name: MARGARITO MTZ Address: [address] [place], [place] [id number] [place] Name: MARGARITO MTZ Address: [address] [place], [place] [id number] [place] Name: MARGARITO MTZ Address: [address] [place], [place] [phone] [place] Care Team Personnel Name: MARTINEZ NÚÑEZ MD Position: P4 LIQUID FERTILIZER SERVICER Provider Member Role: Primary Care Physician Address: Address: [address] [place] [id number] Care Team Related Persons Name: RASHMI MTZ Address: Home [address] [phone] [place] Name: MARGARITO MTZ Address: [address] [place], [place] [phone] [place] Name: MARGARITO MTZ Address: [address] [place], [place] [phone] [place] Name: MARGARITO MTZ Address: [address] [place], [place] [phone] [place] Name: MARGARITO MTZ Address: [address] [place], [place] [phone] [place] Name: MARGARITO MTZ Address: [address] [place], [place] [phone] [place] Name: MARGARITO MTZ Address: [address] [place], [place] [phone] [place] Name: MARGARITO MTZ Address: [address] [place], [place] [phone] [place] Name: MARGARITO MTZ Address: [address] [place], [place] [phone] [place] Care Team Personnel Name: MARTINEZ NÚÑEZ MD Position: P4 LIQUID FERTILIZER SERVICER Provider Member Role: Primary Care Physician Address: Address: [address] [place] [phone]- Care Team Related Persons Name: RASHMI MTZ Address: Home [address] [phone] [place] Name: MARGARITO MTZ Address: [address] [place], [place] [phone] [place] Name: MARGARITO MTZ Address: [address] [place], [place] [phone] [place] Name: MARGARITO MTZ Address: [address] [place], [place] [phone] [place] Name: MARGARITO MTZ Address: [address] [place], [place] [id number] [place] Name: MARGARITO MTZ Address: [address] [place], [place] [id number] [place] Name: MARGARITO MTZ Address: [address] [place], [place] [phone] [place] Name: MARGARITO MTZ Address: [address] [place], [place] [id number] [place] Name: MARGARITO MTZ Address: [address] [place], [place] [phone] [place] Care Team Personnel Name: MARTINEZ NÚÑEZ MD Position: P4 LIQUID FERTILIZER SERVICER Provider Member Role: Primary Care Physician Address: Address: [address] [place] [phone] [place] [address] Care Team Related Persons Name: RASHMI MTZ Address: Home [address] [phone] [place] Name: MARGARITO MTZ Address: [address] [place], [place] [phone] [place] Name: MARGARITO MTZ Address: [address] [place], [place] [phone] [place] Name: MARGARITO MTZ Address: [address] [place], [place] [id number] [place] Name: MARGARITO MTZ Address: [address] [place], [place] [phone] [place] Name: MARGARITO MTZ Address: [address] [place], [place] [id number] [place] Name: MARGARITO MTZ Address: [address] [place], [place] [id number] [place] Name: MARGARITO MTZ Address: [address] [place], [place] [phone] [place] Name: MARGARITO MTZ Address: [address] [place], [place] [phone] [place] Care Team Personnel Name: MARTINEZ NÚÑEZ MD Position: P4 LIQUID FERTILIZER SERVICER Provider Member Role: Primary Care Physician Address: Address: [address] [place] [address]- Care Team Related Persons Name: AMANDA OLIVEIRA Address: Home [address] [place] [phone] [place] Address: Temporary [address] [place], [place] [phone] Name: RASHMI MTZ Address: Home [address] [phone] [place] Name: MARGARITO MTZ Address: [address] [place], [place] [phone] [place] Name: MARGARITO MTZ Address: [address] [place], [place] [phone] [place] Name: MARGARITO MTZ Address: [address] [place], [place] [phone] [place] Name: MARGARITO MTZ Address: [address] [place], [place] [phone] [place] Name: MARGARITO MTZ Address: [address] [place], [place] [phone] [place] Name: MARGARITO MTZ Address: [address] [place], [place] [phone] [place] Name: MARGARITO MTZ Address: [address] [place], [place] [phone] [place] Name: MARGARITO MTZ Address: [address] [place], [place] [phone] [place] Care Team Personnel Name: MARTINEZ NÚÑEZ MD Position: P4 LIQUID FERTILIZER SERVICER Provider Member Role: Primary Care Physician Address: Address: [address] [place] [address] [place] [address] Care Team Related Persons Name: LUIS DANIEL OLIVEIRA Address: Home [address] [place], [place] [phone] Address: Temporary [address] [place] [phone] Care Team Personnel Name: KIRSTEN CISNEROSHAND COMPOSITOR Position: P4 [employer] Maintenance Manager Member Role: Primary Care Physician Address: Address: [address] [place] [address] Care Team Related Persons Name: LUIS DANIEL OLIVEIRA Address: Home [address] [place], [place] [phone] Address: Temporary [address] [place], [place] [phone] Care Team Personnel Name: KIRSTEN CISNEROS APRN-HAND COMPOSITOR Position: P4 [employer] Maintenance Manager Member Role: Primary Care Physician Address: Address: [address] [place] [phone]- Care Team Related Persons Name: LUIS DANIEL OLIVEIRA Address: Home [address] [place], [place] [phone] Address: Temporary [address] [place], [place] [phone] FOR RECORDS PERTAINING TO PATIENTS WHO ARE [...] BE BASED ON THE PRIMARY CLINICAL RECORDS. [facility] [employer] provides no warranty or guarantee of the accuracy or completeness of information in this document.
--- OUTSIDE RECORDS SUMMARY | 2025-07-30 | XMS RPT_ITS | CCD ---
Author Organization [facility] Care Team Providers Care Education Trainer Name Role Phone Lynsey [phone], Alex [phone] C onsulting Unavailable KWON DO, KAY K [...] MARTINEZ NÚÑEZ MD Primary Care Physician [facility] RN-LOSS PREVENTION SUPERVISOR, KIRSTEN Primary Care Physician WILTON AN, MARTINEZ Bautista Primary Care Unavailable ILVIER AN, SUNIL Admitting Unavailable JAYLA AN, LONG Attending Unavailable WILTON AN, MARTINEZ Bautista Attending Unavailable WILTON AN, MARTINEZ Bautista Primary Care Unavailable WILTON AN, MARTINEZ Bautista Attending Unavailable WILTON AN, MARTINEZ Bautista Primary Care Unavailable WILTON AN, MARTINEZ Bautista Attending Unavailable WILTON AN, MARTINEZ Bautista Primary Care Unavailable YUST. [facility], OSMAN Attending Unavailhieu NÚÑEZ MD, MARTINEZ Bautista Primary Care Unavailable [facility] RN-LOSS PREVENTION SUPERVISOR, KIRSTEN Attending Unavailabl e [facility] RN-LOSS PREVENTION SUPERVISOR, KIRSTEN Primary Care Unavailabl e LIVIER AN, SUNIL Attending Unavailable WILTON AN, MARTINEZ Bautista Primary Care Unavailable JAYLA AN, LONG Attending Unavailable WILTON AN, MARTINEZ Bautista Primary Care Unavailable JAYLA AN, LONG Attending Unavailable WILTON AN, MARTINEZ Bautista Primary Care Unavailable [facility] RN-LOSS PREVENTION SUPERVISOR, KIRSTEN Attending Unavailabl e [facility] RN-LOSS PREVENTION SUPERVISOR, KIRSTEN Primary Care Unavailabl e RAMA AVALOS [...] Physician, No Primary Primary Care Unava ilable [place] DIRECTOR PHYSICAL THERAPY, Remedios Attending Unavailable Care Physician, No Primary Referring Unava ilable Care Physician, No Primary Primary Care Unava ilable Sanchez, Geraldine Referring Unavailable Sanchez, Geraldine Attending Unavailable Vande Velde, Rama Referring Unavailabl e Vande Velde, Rama Attending Unavailabl e Care Physician, No Primary Primary Care Unava ilable Antonio, [place] Consulting Unavailable Care Physician, No Primary Primary Care Unava ilable [place] DIRECTOR PHYSICAL THERAPY, Remedios Attending Unavailable GardnerMendez Attending Unavailable Care Physician, No Primary Primary Care Unava ilable [place] DIRECTOR PHYSICAL THERAPY, Remedios Attending Unavailable Care Physician, No Primary Primary Care Unava ilable Jose DIRECTOR PHYSICAL THERAPY, Remedios Referring Unavailable Care Physician, No Primary Primary Care Unava ilable Marcanthony, Geraldine Referring Unavailable Marcanthony, Geraldine Attending Unavailable Care Physician, No Primary Primary Care Unava ilable Damari Mcdonough Referring Unavailable Damari Mcdonough Attending Unavailable Jose DIRECTOR PHYSICAL THERAPY, Remedios Attending Unavailable Care Physician, No Primary Primary Care Unava ilable [place] DIRECTOR PHYSICAL THERAPY, Remedios Referring Unavailable Jose DIRECTOR PHYSICAL THERAPY, Remedios Attending Unavailable Care Physician, No Primary Primary Care Unava ilable Jose DIRECTOR PHYSICAL THERAPY, Remedios Referring Unavailable Care Physician, No Primary Primary Care Unava ilable Care Physician, No Primary Referring Unava ilable Geraldine Bradford Attending Unavailable Allergies Allergy Classification Reported Allergen(s) Allergy Type Date of Onset Reaction(s) Facility (1 source) Escitalopram Drug Allergy [facility] Repository (11 sources) Citalopram; Translations: [CITALOPRAM HYDROBROMIDE] Drug Allergy 4 Other: See Comments [facility] Work Phone: (11 sources) Escitalopram; Translations: [ESCITALOPRAM] Drug Allergy 1 Other: See Comments [facility] Work Phone: (15 sources) Citalopram; Translations: [citalopram] Drug Allergy Suicidal ideation [facility] (1 source) Citalopram Drug Allergy [address] [facility] Repository (1 source) Escitalopram Drug Allergy [facility] Repository Medications Current Medications Medication Drug Class(es) Dates Sig (Normalized) Sig (Original) acetaminophen 500 mg oral tablet (1 source) Start: 03-31-2023 End: 04-28-2023 Tylenol Extra Strength 500 mg oral tablet Dose : 500 mg = 1 tab(s), Oral, q4h, X 14 day(s), # 30 tab(s), 1 Refill(s), 04/28/23 11:38:00 EDT, Pharmacy: [facility]/pharmacy #[id number], 155, cm, 03/30/23 7:49:00 EDT, Height Start Date: 03/31/23 Stop Date: 04/28/23 Status: Ordered benzocaine 200 mg/ml topical spray (1 source) Standardized Chemical Allergen Start: 03-31-2023 End: 04-14-2023 apply 1 dose topically four times daily Americaine 20% topical spray Dose = 1 herlinda, Topical, QID, X 14 day(s), # 1 EA, 0 Refill(s), Pharmacy: [facility]/pharmacy #[id number], 155, cm, 03/30/23 7:49:00 [...] 0 Refill(s), 02/25/24 8:31:00 AM EDT, Pharmacy: [facility] #330, 155, cm, 02/18/24 7:59:00 EDT, Height, kg, 02/18/24 7:59:00 EDT, Dosing Weight Start Date: 02/18/24 Stop Date: 02/25/24 Status: Ordered diclofenac sodium 75 mg delayed release oral tablet (1 source) Nonsteroidal Anti-inflammatory Drug Start: 02-18-2024 End: 03-03-2024 diclofenac sodium 75 mg oral delayed release tablet Dose : 75 mg = 1 tab(s), Oral, BID, # 28 tab(s), 0 Refill(s), Pharmacy: [facility] #330, 155, cm, 02/18/24 7:59:00 EDT, [...] tab(s), 0 Refill(s), 04/14/23 11:38:00 EDT, Pharmacy: [facility]/pharmacy #[id number], 155, cm, 03/30/23 7:49:00 EDT, Height Start Date: 03/31/23 Stop Date: 04/14/23 Status: Ordered magnesium oxide 400 mg oral tablet (3 sources) Start: 01-11-2023 End: 02-10-2023 magnesium oxide 400 mg oral tablet Dose : 400 mg = 1 tab(s), Oral, qHS, X 30 day(s), # 30 tab(s), 0 Refill(s), 02/10/23 15:17:00 EDT, Pharmacy: [facility]/pharmacy #[id number], 155, , 01/11/23 15:08:00 [...] tylenol, # 12 tab(s), 0 Refill(s), Pharmacy: [facility]/pharmacy #[id number], 155, cm, 01/11/23 15:08:00 [...] on above: Take 1 capsule by mo [facility] daily with breakfast. AD oral tablet (10 sources) Start: 01-26-2023 take 1 tablet by mouth once daily AD oral tablet Dose = 1 tab(s), Oral, Daily, # 30 tab(s), 0 Refill(s) Start Date: 01/26/23 Status: Ordered Hhuoqrfk-Ano-Pv-Fa () 1 mg Tablet (2 sources) Start: 08-09-2022 take 1 tablet by mouth once daily Wamohexl-Ldw-By-Fa () 1 mg Tablet Active 1 TABLET PO DAILY August 08, 2022 11:00pm Start: 08-09-2022 [facility] Ttikpift-Yqh-Ij-Fa () 1 mg Tablet Active 1 TABLET [...] qDay, # 30 tab(s), 11 Refill(s), [id number], Depression, major, recurrent, moderate, 154, cm, 07/20/23 7:49:00 EDT, Height, kg, 07/20/23 7:49:00 EDT, Dosing Weight Start Date: 08/16/23 Stop Date: 08/10/24 Status: Ordered Vitamin B2 100 mg oral tablet (8 sources) Start: 02-04-2023 take 1 tablet by mouth once daily Vitamin B2 100 mg oral tablet 1 tab(s), Oral, qDay, # 30 tab(s), 2 Refill(s), Pharmacy: [facility] STORE [id number], 155, cm, 02/01/23 13:50:00 EDT, Height, kg, 01/26/23 0:59:00 EDT, Dosing Weight Start Date: 02/04/23 Status: Ordered Start: 01-11-2023 Vitamin B2 100 mg oral tablet Dose : 100 mg = 1 tab(s), Oral, Daily, # 30 tab(s), 2 Refill(s), Pharmacy: [facility]/pharmacy #[id number], 155, cm, 01/11/23 15:08:00 [...] (FLONASE) 50 mcg/actuation nasal spray Use 1 [place] in each nostril once daily. 1 Bottle 2 07/10/2014 08/19/2022 Discontinued Comment on above: Use 1 [place] in each nostril once daily. loratadine 10 [...] (3 sources) Congenital vesicoureterorenal reflux; Translations: [Congenital bwjnqh-kugbcbr-jjhdd reflux] Onset: 5 Chronic Headache; including migraine [...] Absolute Lymph 1.09 X10 3/uL Normal 0.83-4.[address] [facility] Comment on above: Performed By: #### L 100.0100, L500.4050 #### [facility] [address] [place], [place], [id number] Absolute Neut 6.9 X10 3/uL Normal 2.0-7.[address] [facility] Comment on above: Performed By: #### L 100.0100, L500.4050 #### [facility] [address] [place], [address] Basophils/100 WBC (Bld) 0.1 % Normal 0-[address] [facility] Comment on above: Performed By: #### L 100.0100, L500.4050 #### [facility] [address] [place], [address] Eosinophils/100 WBC (Bld) 0.2 % Normal 0-[address] [facility] Comment on above: Performed By: #### L 100.0100, L500.4050 #### [facility] [address] [place], [address] Erythrocyte distribution width (RBC) [Ratio] 14.1 % Normal 11.6-14.[address] [facility] Comment on above: Performed By: #### L 100.0100, L500.4050 #### [facility] [address] [place], [address] Hematocrit (Bld) [Volume fraction] 31.9 % Low 37-[address] [facility] Comment on above: Performed By: #### L 100.0100, L500.4050 #### [facility] [address] [place], [address] Hemoglobin (Bld) [Mass/Vol] 11.6 g/dL Low 12.0-15.[address] [facility] Comment on above: Performed By: #### L 100.0100, L500.4050 #### [facility] [address] [place], [address] IG% 0.600 Normal 0.0-0.[address] [facility] Comment on above: Result Comment: IG% - Immature Granulocytes (promyelocytes, myelocytes and metamyelocytes) > 1% indicates that a LEFT SHIFT is Present. Performed By: #### L 100.0100, L500.4050 #### [facility] [address] [place], [address] Lymphocytes/100 WBC (Bld) 12.8 % Low 19-[address] [facility] Comment on above: Performed By: #### L 100.0100, L500.4050 #### [facility] [address] [place], [address] MCH (RBC) [Entitic mass] 32.6 pg High 27.0-32.[address] [facility] Comment on above: Performed By: #### L 100.0100, L500.4050 #### [facility] [address] [place], [address] MCHC (RBC) [Mass/Vol] 36.4 g/dL High 32-36 [facility] Comment on above: Performed By: #### L 100.0100, L500.4050 #### [facility] [address] [place], [address] MCV (RBC) [Entitic vol] 89.6 fL Normal 81-[address] [facility] Comment on above: Performed By: #### L 100.0100, L500.4050 #### [facility] [address] [place], [address] Monocytes/100 WBC (Bld) 4.7 % Normal 0-[address] [facility] Comment on above: Performed By: #### L 100.0100, L500.4050 #### [facility] [address] [place], [address] Neutrophils/100 WBC (Bld) 81.6 % High 47-[address] [facility] Comment on above: Performed By: #### L 100.0100, L500.4050 #### [facility] [address] [place], [address] Nucleated RBC (Bld) [#/Vol] 0 10*3/uL Normal 0-[address] [facility] Comment on above: Performed By: #### L 100.0100, L500.4050 #### [facility] [address] [place], [address] Platelet mean volume (Bld) [Entitic vol] 10.1 fL Normal 6.2-12.[address] [facility] Comment on above: Performed By: #### L 100.0100, L500.4050 #### [facility] [address] [place], [address] Platelets (Bld) [#/Vol] 180 10*3/uL Normal 150-[address] [facility] Comment on above: Performed By: #### L 100.0100, L500.4050 #### [facility] [address] [place], [address] RBC (Bld) [#/Vol] 3.56 10*6/uL Low 4.2-5.4 [facility] Comment on above: Performed By: #### L 100.0100, L500.4050 #### [facility] [address] [place], [address] RDW SD 45.9 fl High 35.1-43.[address] [facility] Comment on above: Performed By: #### L 100.0100, L500.4050 #### [facility] [address] [place], [address] WBC (Bld) [#/Vol] 8.5 10*3/uL Normal 4.4-11.0 [facility] Comment on above: Performed By: #### L 100.0100, L500.4050 #### [facility] [address] [place], [address] [facility] 07-09-2025 Albumin [Mass/Vol] 3.9 g/dL Normal 3.5-5.0 [facility] Comment on above: Performed By: #### L 100.0100, L500.4050 #### [facility] [address] [place], [address] Albumin/Globulin [Mass ratio] 1.4 {ratio} Normal 0.9-2.[address] [facility] Comment on above: Performed By: #### L 100.0100, L500.4050 #### [facility] [address] [place], [address] ALK PHOS 65 U/L Normal 35-[address] [facility] Comment on above: Performed By: #### L 100.0100, L500.4050 #### [facility] [address] [place], [address] ALT [Catalytic activity/Vol] 20 U/L Normal <=[address] [facility] Comment on above: Performed By: #### L 100.0100, L500.4050 #### [facility] [address] [place], [address] AST [Catalytic activity/Vol] 23 U/L Normal <=[address] [facility] Comment on above: Performed By: #### L 100.0100, L500.4050 #### [facility] [address] [place], [address] Bilirubin [Mass/Vol] 0.35 mg/dL Normal 0.00-1.30 [facility] Comment on above: Performed By: #### L 100.0100, L500.4050 #### [facility] [address] [place], [address] BUN/CRE 10.5 RATIO Normal 10-[address] [facility] Comment on above: Performed By: #### L 100.0100, L500.4050 #### [facility] [address] [place], [address] Calcium [Mass/Vol] 9.1 mg/dL Normal 7.6-11.0 [facility] Comment on above: Performed By: #### L 100.0100, L500.4050 #### [facility] [address] [place], [address] Chloride [Moles/Vol] 105 mmol/L Normal 98-108 [facility] Comment on above: Performed By: #### L 100.0100, L500.4050 #### [facility] [address] [place], [address] CO2 [Moles/Vol] 18.7 mmol/L Low 21.0-32.[address] [facility] Comment on above: Performed By: #### L 100.0100, L500.4050 #### [facility] [address] [place], [address] Creatinine [Mass/Vol] 0.60 mg/dL Low 0.70-1.20 [facility] Comment on above: Performed By: #### L 100.0100, L500.4050 #### [facility] [address] [place], [address] GAP 14 Normal 5-[address] [facility] Comment on above: Performed By: #### L 100.0100, L500.4050 #### [facility] [address] [place], [address] GFR/1.73 sq M.predicted among non-blacks MDRD (S/P/Bld) [Vol rate/Area] 128 mL/min/{1.73_m2} Normal >[address] [facility] Comment on above: Result Comment: mL/m in/1.73m2 CKD-EPI Creatinine Equation (2020) Performed By: #### L 100.0100, L500.4050 #### [facility] [address] [place], [address] Globulin (S) [Mass/Vol] 2.8 g/dL Normal 2.2-4.[address] [facility] Comment on above: Performed By: #### L 100.0100, L500.4050 #### [facility] [address] [place], [address] Glucose [Mass/Vol] 91 mg/dL Normal 70-99 [facility] Comment on above: Performed By: #### L 100.0100, L500.4050 #### [facility] [address] [place], [address] Potassium [Moles/Vol] 3.7 mmol/L Normal 3.3-5.1 [facility] Comment on above: Performed By: #### L 100.0100, L500.4050 #### [facility] [address] [place], [address] Sodium [Moles/Vol] 137 mmol/L Normal 133-145 [facility] Comment on above: Performed By: #### L 100.0100, L500.4050 #### [facility] [address] [place], [address] T PROT 6.7 g/dL Normal 5.9-8.[address] [facility] Comment on above: Performed By: #### L 100.0100, L500.4050 #### [facility] [address] [place], [address] Urea nitrogen [Mass/Vol] 6 mg/dL Normal 4-[address] [facility] Comment on above: Performed By: #### L 100.0100, L500.4050 #### [facility] [address] [place], [address] Project Control Analyst Office Visit Reporton 07-09-2025 Project Control Analyst Office Visit Report [facility]'[address], [address] [place] [address] OFFICE VISIT Date of Service: 07/09/25 MR#: [id number] Acct: [id number] Name: LUZ OLIVEIRA Rep #: 36 [...] Visit Reasons: DISCUSS CONCERNS * OK PER Hand Cigar Making Supervisor Required: No Is patient in pain?: No Allergies escitalopram (From Lexapro) Adverse Reaction (Severe, Verified 07/09/25 09:30) SUICIDAL citalopram hydrobromide (From Celexa) Adverse Reaction (Verified 07/09/25 09:30) Other Medications ???Medication ???Instructions ???Recorded ???Confirmed ???Type hrhfntsd-enn-Yy-FA 1 mg 1 tab PO DAILY 08/09/22 [...] hypertension Obesity affecting 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 amzhel-openfek-gczch reflux Surgical History [place] teeth removed Family History Grandmother Breast cancer Brain cancer Grandfather CVA (cerebral vascular accident) Mother Diabetes Heart failure MRSA carrier History of recurrent miscarriages Father Hypertension Social History adopted: No household members: spouse and children housing: house number of children: 1 current occupation: 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 Date Name GA/Weeks Outcome Route Bth Weight Gen Labor Lgth Anesthesia Del Locatn Provider FOB 10/11/18 Chemical 4 spontaneous 03/30/23 Amanda 39 live - full term vacuum 6lbs 1oz Female epidural [facility] Delivery Date: 03/30/23 Last Updated [...] Visit Note (more content not included)... Normal [facility] Protein+Creatinine Ratio,Uri neon 07-09-2025 PROT:CRE RATIO 283 mg/g CRE High 0-[address] [facility] Comment on above: Performed By: #### L 501.0900 #### [facility] [address] [place], [address] Protein (U) [Mass/Vol] 73.9 mg/dL High 0.0-12.[address] [facility] Comment on above: Performed By: #### L 501.0900 #### [facility] [address] [place], [address] UR CREAT 261.00 mg/dL High 28.00-217.[address] [facility] Comment on above: Performed By: #### L 501.0900 #### [facility] [address] [place], [address] Wound Cultureon 07-06-2025 WC Lesion of abdomen Possible skin contamination, further Identification and sensitivity will be performed only by physician's request. Coag Negative Staph Amount Growth 2+ Normal [facility] Comment on above: Performed By: #### L 100.0100 #### [facility] [address] [place], [address] Gram Stainon 07-04-2025 GS Lesion of abdomen Gram Stain 1+ White Blood Cells No organisms seen Normal [facility] Comment on above: Performed By: #### L 100.0100 #### [facility] [address] [place], [address] Project Control Analyst Office Visit Reporton 07-03-2025 Project Control Analyst Office Visit Report [facility] [address], [address] [place] [address] OFFICE VISIT Date of Service: 07/03/25 MR#: [id number] Acct: [id number] Name: LUZ OLIVEIRA Rep #: [id number] : 2000 Provider: JARAD moctezuma Age/Sex: 24/F Location: [facility] Status: Signed Intake Vital Signs 05/07/25 14:40 06/06/25 13:39 07/03/25 15:35 Height 5 ft 1 in 5 ft 1 in 5 ft 1 in Weight: 185 lb 4 oz BMI 34.9 BP 109/74 Intake Visit Reasons: 21wk ob Chief Complaint: 21 Week OB Hand Cigar Making Supervisor Required: No Is patient in pain?: No Allergies escitalopram (From Lexapro) Adverse Reaction (Severe, Verified 07/03/25 15:38) SUICIDAL citalopram hydrobromide (From Celexa) Adverse Reaction (Verified 07/03/25 15:38) Other Medications ???Medication ???Instructions ???Recorded ???Confirmed ???Type oqzduofn-qky-Qq-FA 1 mg 1 tab PO DAILY 08/09/22 [...] hypertension Obesity affecting 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 cfnvgc-gywrosx-lnfqc reflux Surgical History [place] teeth removed Family History Grandmother Breast cancer Brain cancer Grandfather CVA (cerebral vascular accident) Mother Diabetes Heart failure MRSA carrier History of recurrent miscarriages Father Hypertension Social History adopted: No household members: spouse and children housing: house number of children: 1 current occupation: 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 Date Name GA/Weeks Outcome Route Bth Weight Infant Gen Labor Lgth Anesthesia Del Locatn Provider FOB 10/11/18 Chemical 4 spontaneous 03/30/23 Amanda 39 live - full term vacuum 6lbs 1oz [facility]: 03/30/23 Last Updated by: [...] ??-???- 9w (more content not included)... Normal [facility] Progress Noteon 06-20-2025 Buggy Man Authentication Interface Message Text [facility]- MEDICINE CONSULT Referring/Requesting Provider: Rama Avalos [...] disorder Chronic kidney disease kidney stones Congenital uypely-jvesbkz-xppdi reflux Depression Elevated liver enzymes Headache in [...] repeat LFTs are elevated, refer to local hand washer for further evaluation. Frequent UTI 06/20/2025 - [...] hemorrhage, stillbirth, anomalies, delivery and postcesarean complications. [place] of medicine recommend weight gain in : [...] findings. Ame (more content not included)... Normal [facility] Project Control Analyst Office Visit Reporton 06-06-2025 Project Control Analyst Office Visit Report [facility]'s [address], [address] [place] [address] OFFICE VISIT Date of Service: 06/06/25 MR#: [id number] Acct: [id number] Name: LUZ OLIVEIRA Rep #: [id number] : 2000 Provider: Dr. Rama Trammell DO Age/Sex: 24/F Location: [facility] Status: Signed Intake Vital Signs 04/09/25 10:40 05/30/25 09:28 06/06/25 13:37 06/06/25 13:39 Height 5 ft 1 in 5 ft 1 in 5 ft 1 in 5 ft 1 in Weight: 183 lb 5 oz BMI 34.6 BP 112/68 Intake Visit Reasons: 17 wk ob Hand Cigar Making Supervisor Required: No Is patient in pain?: No Allergies escitalopram (From Lexapro) Adverse Reaction (Severe, Verified 06/06/25 13:36) SUICIDAL citalopram hydrobromide (From Celexa) Adverse Reaction (Verified 06/06/25 13:36) Other Medications ???Medication ???Instructions ???Recorded ???Confirmed ???Type liplndxa-jpj-Mc-FA 1 mg 1 tab PO DAILY 08/09/22 06/06/25 H istory tablet metoclopramide HCl 5 mg tablet 5 mg PO QACHS #60 tabs 04/19/25 Rx (Reglan) Last Menstrual Period: 02/02/25 Zika: Zika virus screening: Negative : No PFSH PFSH Medical History Fatty liver Renal atrophy, left Elevated liver enzymes Heart palpitations History of gestational hypertension Obesity affecting 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 tfldha-rdsjttk-jvqqq reflux Surgical History [place] teeth removed Family History Grandmother Breast cancer Brain cancer Grandfather CVA (cerebral vascular accident) Mother Diabetes Heart failure MRSA carrier History of recurrent miscarriages Father Hypertension Social History adopted: No household members: spouse and children housing: house number of children: 1 current occupation: 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 Date Name GA/Weeks Outcome Route Bth Weight Gen Labor Lgth Anesthesia Del Locatn Provider FOB 10/11/18 Chemical 4 spontaneous 03/30/23 Amanda 39 live - full term vacuum 6lbs 1oz Female epidural [facility] Delivery Date: 03/30/23 Last Updated [...] ??-???- Negat (more content not included)... Normal [facility] Urine Cultureon 06-02-2025 URC #1,2 Gram positive francheska suggestive of a diphtheroid. Susceptibility not normally performed on this organism Urine Culture Urine Culture Urine Culture Corynebacterium amycolatum [place] Count 11,000-25,000 Corynebacterium minutissimum Corynebacterium minutissimum Normal [facility] Comment on above: Performed By: #### M 100.678, M100.2200, L400.0001 #### [facility] [address] [place], [place], [address] Cardiology Visit Reporton Cardiology Visit Report [facility] [address] [place] [address] OFFICE VISIT Date of Service: 05/30/25 MR#: [id number] Acct: [id number] Name: LUZ OLIVEIRA Rep #: 63 : 2000 Provider: Dr. Keven Alvarez MD Age/Sex: 24/F [place] [facility] [place]: Signed HPI HPI History of Present [...] Source Monitor Intake Visit Reasons: PALP ([place]STER) Hand Cigar Making Supervisor Required: No Accompanied by: Self Is patient in pain?: No Allergies escitalopram (From Lexapro) Adverse Reaction (Severe, Verified 05/30/25 09:34) SUICIDAL citalopram hydrobromide (From Celexa) Adverse Reaction (Verified 05/30/25 09:34) Other Medications ???Medication ???Instructions ???Recorded ???Confirmed ???Type ffjgfeoh-wkg-Uh-FA 1 mg 1 tab PO DAILY 08/09/22 05/30/25 H istory tablet metoclopramide HCl 5 mg tablet 5 mg PO QACHS #60 tabs 04/19/25 Rx (Reglan) PFSH Medical History Fatty liver Renal atrophy, left Elevated liver enzymes Heart palpitations History of gestational hypertension Obesity affecting 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 telbeo-uifqvli-mhatt reflux Surgical History [place] teeth removed Family History Grandmother Breast cancer Brain cancer Grandfather CVA (cerebral vascular accident) Mother Diabetes Heart failure MRSA carrier History of recurrent miscarriages Father Hypertension Social History adopted: No household members: spouse and children housing: house number of children: 1 current occupation: 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 Normal [facility] Comprehensive Metabolic Prof ilon 05-30-2025 Albumin [Mass/Vol] 4.0 g/dL Normal 3.5-5.0 [facility] Comment on above: Performed By: #### L 100.0100, L500.4050 #### [facility] [address] [place], [address] Albumin/Globulin [Mass ratio] 1.5 {ratio} Normal 0.9-2.[address] [facility] Comment on above: Performed By: #### L 100.0100, L500.4050 #### [facility] [address] [place], [address] ALK PHOS 56 U/L Normal 35-[address] [facility] Comment on above: Performed By: #### L 100.0100, L500.4050 #### [facility] [address] [place], [address] ALT [Catalytic activity/Vol] 35 U/L Normal <=[address] [facility] Comment on above: Performed By: #### L 100.0100, L500.4050 #### [facility] [address] [place], [address] AST [Catalytic activity/Vol] 29 U/L Normal <=[address] [facility] Comment on above: Performed By: #### L 100.0100, L500.4050 #### [facility] [address] [place], [address] Bilirubin [Mass/Vol] 0.36 mg/dL Normal 0.00-1.30 [facility] Comment on above: Performed By: #### L 100.0100, L500.4050 #### [facility] [address] [place], [address] BUN/CRE 10.5 RATIO Normal 10-[address] [facility] Comment on above: Performed By: #### L 100.0100, L500.4050 #### [facility] [address] [place], [address] Calcium [Mass/Vol] 9.3 mg/dL Normal 7.6-11.0 [facility] Comment on above: Performed By: #### L 100.0100, L500.4050 #### [facility] [address] [place], [address] Chloride [Moles/Vol] 104 mmol/L Normal 98-108 [facility] Comment on above: Performed By: #### L 100.0100, L500.4050 #### [facility] [address] [place], [address] CO2 [Moles/Vol] 20.0 mmol/L Low 21.0-32.[address] [facility] Comment on above: Performed By: #### L 100.0100, L500.4050 #### [facility] [address] [place], [address] Creatinine [Mass/Vol] 0.57 mg/dL Low 0.70-1.20 [facility] Comment on above: Performed By: #### L 100.0100, L500.4050 #### [facility] [address] [place], [address] GAP 14 Normal 5-[address] [facility] Comment on above: Performed By: #### L 100.0100, L500.4050 #### [facility] [address] [place], [address] GFR/1.73 sq M.predicted among non-blacks MDRD (S/P/Bld) [Vol rate/Area] 129 mL/min/{1.73_m2} Normal >[address] [facility] Comment on above: Result Comment: mL/m in/1.73m2 CKD-EPI Creatinine Equation (2020) Performed By: #### L 100.0100, L500.4050 #### [facility] [address] [place], [address] Globulin (S) [Mass/Vol] 2.6 g/dL Normal 2.2-4.[address] [facility] Comment on above: Performed By: #### L 100.0100, L500.4050 #### [facility] [address] [place], [address] Glucose [Mass/Vol] 92 mg/dL Normal 70-99 [facility] Comment on above: Performed By: #### L 100.0100, L500.4050 #### [facility] [address] [place], [address] Potassium [Moles/Vol] 3.8 mmol/L Normal 3.3-5.1 [facility] Comment on above: Performed By: #### L 100.0100, L500.4050 #### [facility] [address] [place], [address] Sodium [Moles/Vol] 138 mmol/L Normal 133-145 [facility] Comment on above: Performed By: #### L 100.0100, L500.4050 #### [facility] [address] [place], [address] T PROT 6.6 g/dL Normal 5.9-8.[address] [facility] Comment on above: Performed By: #### L 100.0100, L500.4050 #### [facility] [address] [place], [address] Urea nitrogen [Mass/Vol] 6 mg/dL Normal 4-[address] [facility] Comment on above: Performed By: #### L 100.0100, L500.4050 #### [facility] [address] [place], [address] Thyroid Stim Hormone (TSH)on 05-30-2025 TSH 0.631 uIU/mL Normal 0.300-4.[address] [facility] Comment on above: Performed By: #### L 501.9520 #### [facility] [address] [place], [address] CBC W/Diff, Automatedon Absolute Lymph 1.81 X10 3/uL Normal 0.83-4.[address] [facility] Comment on above: Performed By: #### L 100.0100, L500.4050 #### [facility] [address] [place], [address] Absolute Neut 5.3 X10 3/uL Normal 2.0-7.[address] [facility] Comment on above: Performed By: #### L 100.0100, L500.4050 #### [facility] [address] [place], [address] Basophils/100 WBC (Bld) 0.1 % Normal 0-[address] [facility] Comment on above: Performed By: #### L 100.0100, L500.4050 #### [facility] [address] [place], [address] Eosinophils/100 WBC (Bld) 0.3 % Normal 0-[address] [facility] Comment on above: Performed By: #### L 100.0100, L500.4050 #### [facility] [address] [place], [address] Erythrocyte distribution width (RBC) [Ratio] 12.9 % Normal 11.6-14.[address] [facility] Comment on above: Performed By: #### L 100.0100, L500.4050 #### [facility] [address] [place], [address] Hematocrit (Bld) [Volume fraction] 36.8 % Low 37-[address] [facility] Comment on above: Performed By: #### L 100.0100, L500.4050 #### [facility] [address] [place], [address] Hemoglobin (Bld) [Mass/Vol] 13.0 g/dL Normal 12.0-15.[address] [facility] Comment on above: Performed By: #### L 100.0100, L500.4050 #### [facility] [address] [place], [address] IG% 0.400 Normal 0.0-0.[address] [facility] Comment on above: Result Comment: IG% - Immature Granulocytes (promyelocytes, myelocytes and metamyelocytes) > 1% indicates that a LEFT SHIFT is Present. Performed By: #### L 100.0100, L500.4050 #### [facility] [address] [place], [address] Lymphocytes/100 WBC (Bld) 23.5 % Normal 19-[address] [facility] Comment on above: Performed By: #### L 100.0100, L500.4050 #### [facility] [address] [place], [address] MCH (RBC) [Entitic mass] 31.0 pg Normal 27.0-32.[address] [facility] Comment on above: Performed By: #### L 100.0100, L500.4050 #### [facility] [address] [place], [address] MCHC (RBC) [Mass/Vol] 35.3 g/dL Normal 32-36 [facility] Comment on above: Performed By: #### L 100.0100, L500.4050 #### [facility] [address] [place], [address] MCV (RBC) [Entitic vol] 87.6 fL Normal 81-[address] [facility] Comment on above: Performed By: #### L 100.0100, L500.4050 #### [facility] [address] [place], [address] Monocytes/100 WBC (Bld) 6.7 % Normal 0-[address] [facility] Comment on above: Performed By: #### L 100.0100, L500.4050 #### [facility] [address] [place], [address] Neutrophils/100 WBC (Bld) 69.0 % Normal 47-[address] [facility] Comment on above: Performed By: #### L 100.0100, L500.4050 #### [facility] [address] [place], [address] Nucleated RBC (Bld) [#/Vol] 0 10*3/uL Normal 0-[address] [facility] Comment on above: Performed By: #### L 100.0100, L500.4050 #### [facility] [address] [place], [address] Platelet mean volume (Bld) [Entitic vol] 10.3 fL Normal 6.2-12.[address] [facility] Comment on above: Performed By: #### L 100.0100, L500.4050 #### [facility] [address] [place], [address] Platelets (Bld) [#/Vol] 198 10*3/uL Normal 150-[address] [facility] Comment on above: Performed By: #### L 100.0100, L500.4050 #### [facility] [address] [place], [address] RBC (Bld) [#/Vol] 4.20 10*6/uL Normal 4.2-5.4 [facility] Comment on above: Performed By: #### L 100.0100, L500.4050 #### [facility] [address] [place], [address] RDW SD 39.9 fl Normal 35.1-43.[address] [facility] Comment on above: Performed By: #### L 100.0100, L500.4050 #### [facility] [address] [place], [address] WBC (Bld) [#/Vol] 7.7 10*3/uL Normal 4.4-11.0 [facility] Comment on above: Performed By: #### L 100.0100, L500.4050 #### [facility] [address] [place], [address] [facility] 05-14-2025 Albumin [Mass/Vol] 4.2 g/dL Normal 3.5-5.0 [facility] Comment on above: Performed By: #### L 100.0100, L500.4050 #### [facility] [address] [place], [address] Albumin/Globulin [Mass ratio] 1.5 {ratio} Normal 0.9-2.[address] [facility] Comment on above: Performed By: #### L 100.0100, L500.4050 #### [facility] [address] [place], [address] ALK PHOS 61 U/L Normal 35-[address] [facility] Comment on above: Performed By: #### L 100.0100, L500.4050 #### [facility] [address] [place], [address] ALT [Catalytic activity/Vol] 47 U/L High <=[address] [facility] Comment on above: Performed By: #### L 100.0100, L500.4050 #### [facility] [address] [place], [address] AST [Catalytic activity/Vol] 36 U/L High <=[address] [facility] Comment on above: Performed By: #### L 100.0100, L500.4050 #### [facility] [address] [place], [address] Bilirubin [Mass/Vol] 0.52 mg/dL Normal 0.00-1.30 [facility] Comment on above: Performed By: #### L 100.0100, L500.4050 #### [facility] [address] [place], [address] BUN/CRE 10.7 RATIO Normal 10-[address] [facility] Comment on above: Performed By: #### L 100.0100, L500.4050 #### [facility] [address] [place], [address] Calcium [Mass/Vol] 9.5 mg/dL Normal 7.6-11.0 [facility] Comment on above: Performed By: #### L 100.0100, L500.4050 #### [facility] [address] [place], [address] Chloride [Moles/Vol] 102 mmol/L Normal 98-108 [facility] Comment on above: Performed By: #### L 100.0100, L500.4050 #### [facility] [address] [place], [address] CO2 [Moles/Vol] 18.6 mmol/L Low 21.0-32.[address] [facility] Comment on above: Performed By: #### L 100.0100, L500.4050 #### [facility] [address] [place], [address] Creatinine [Mass/Vol] 0.66 mg/dL Low 0.70-1.20 [facility] Comment on above: Performed By: #### L 100.0100, L500.4050 #### [facility] [address] [place], [address] GAP 16 High 5-[address] [facility] Comment on above: Performed By: #### L 100.0100, L500.4050 #### [facility] [address] [place], [address] GFR/1.73 sq M.predicted among non-blacks MDRD (S/P/Bld) [Vol rate/Area] 125 mL/min/{1.73_m2} Normal >[address] [facility] Comment on above: Result Comment: mL/m in/1.73m2 CKD-EPI Creatinine Equation (2020) Performed By: #### L 100.0100, L500.4050 #### [facility] [address] [place], [address] Globulin (S) [Mass/Vol] 2.8 g/dL Normal 2.2-4.[address] [facility] Comment on above: Performed By: #### L 100.0100, L500.4050 #### [facility] [address] [place], [address] Glucose [Mass/Vol] 92 mg/dL Normal 70-99 [facility] Comment on above: Performed By: #### L 100.0100, L500.4050 #### [facility] [address] [place], [address] Potassium [Moles/Vol] 3.8 mmol/L Normal 3.3-5.1 [facility] Comment on above: Performed By: #### L 100.0100, L500.4050 #### [facility] [address] [place], [address] Sodium [Moles/Vol] 137 mmol/L Normal 133-145 [facility] Comment on above: Performed By: #### L 100.0100, L500.4050 #### [facility] [address] [place], [address] T PROT 7.0 g/dL Normal 5.9-8.[address] [facility] Comment on above: Performed By: #### L 100.0100, L500.4050 #### [facility] [address] [place], [address] Urea nitrogen [Mass/Vol] 7 mg/dL Normal 4-[address] [facility] Comment on above: Performed By: #### L 100.0100, L500.4050 #### [facility] [address] [place], [address] Project Control Analyst Office Visit Reporton 05-14-2025 Project Control Analyst Office Visit Report [facility] [address], [address] [place] [address] OFFICE VISIT Date of Service: 05/14/25 MR#: [id number] Acct: [id number] Name: LUZ OLIVEIRA Rep #: 34 : 2000 Provider: Dr. Rama Trammell DO Age/Sex: 24/F Location: [facility] [place] Status: Signed Intake Vital Signs 05/07/25 14:40 05/14/25 14:48 05/14/25 14:48 Height 5 ft 1 in 5 ft 1 in 5 ft 1 in Weight: 185 lb 1 oz BMI 34.9 BP 100/52 L Intake Visit Reasons: 14wk OB, elevated liver enzymes cbc/cmp FU Hand Cigar Making Supervisor Required: No Is patient in pain?: No Allergies escitalopram (From Lexapro) Adverse Reaction (Severe, Verified 05/14/25 14:48) SUICIDAL citalopram hydrobromide (From Celexa) Adverse Reaction (Verified 05/14/25 14:48) Other Medications ???Medication ???Instructions ???Recorded ???Confirmed ???Type whjkfkwl-aoe-Gy-FA 1 mg 1 tab PO DAILY 08/09/22 05/14/25 H istory tablet metoclopramide HCl 5 mg tablet 5 mg PO QACHS #60 tabs 07/10/25 08 /04/25 Rx (Reglan) Last Menstrual Period: 02/02/25 Zika: Zika virus screening: Negative : No PFSH PFSH Medical History Congenital ydvixu-vyuevrx-plnfe reflux Surgical History [place] teeth removed Family History Grandmother Breast cancer Brain cancer Grandfather CVA (cerebral vascular accident) Mother Diabetes Heart failure MRSA carrier History of recurrent miscarriages Father Hypertension Social History adopted: No household members: spouse and children housing: house number of children: 1 current occupation: 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 (more content not included)... Normal [facility] CBC W/Diff, Automatedon 07-2 Absolute Lymph 1.24 X10 3/uL Normal 0.83-4.[address] [facility] Comment on above: Performed By: #### L 100.0100, L500.4050 #### [facility] [address] [place], [address] Absolute Neut 6.2 X10 3/uL Normal 2.0-7.[address] [facility] Comment on above: Performed By: #### L 100.0100, L500.4050 #### [facility] [address] [place], [address] Basophils/100 WBC (Bld) 0.1 % Normal 0-[address] [facility] Comment on above: Performed By: #### L 100.0100, L500.4050 #### [facility] [address] [place], [address] Eosinophils/100 WBC (Bld) 0.1 % Normal 0-[address] [facility] Comment on above: Performed By: #### L 100.0100, L500.4050 #### [facility] [address] [place], [address] Erythrocyte distribution width (RBC) [Ratio] 12.5 % Normal 11.6-14.[address] [facility] Comment on above: Performed By: #### L 100.0100, L500.4050 #### [facility] [address] [place], [address] Hematocrit (Bld) [Volume fraction] 36.6 % Low 37-[address] [facility] Comment on above: Performed By: #### L 100.0100, L500.4050 #### [facility] [address] [place], [address] Hemoglobin (Bld) [Mass/Vol] 12.8 g/dL Normal 12.0-15.[address] [facility] Comment on above: Performed By: #### L 100.0100, L500.4050 #### [facility] [address] [place], [address] IG% 0.500 Normal 0.0-0.[address] [facility] Comment on above: Result Comment: IG% - Immature Granulocytes (promyelocytes, myelocytes and metamyelocytes) > 1% indicates that a LEFT SHIFT is Present. Performed By: #### L 100.0100, L500.4050 #### [facility] [address] [place], [address] Lymphocytes/100 WBC (Bld) 15.8 % Low 19-[address] [facility] Comment on above: Performed By: #### L 100.0100, L500.4050 #### [facility] [address] [place], [address] MCH (RBC) [Entitic mass] 30.8 pg Normal 27.0-32.[address] [facility] Comment on above: Performed By: #### L 100.0100, L500.4050 #### [facility] [address] [place], [address] MCHC (RBC) [Mass/Vol] 35.0 g/dL Normal 32-36 [facility] Comment on above: Performed By: #### L 100.0100, L500.4050 #### [facility] [address] [place], [address] MCV (RBC) [Entitic vol] 88.2 fL Normal 81-[address] [facility] Comment on above: Performed By: #### L 100.0100, L500.4050 #### [facility] [address] [place], [address] Monocytes/100 WBC (Bld) 5.0 % Normal 0-[address] [facility] Comment on above: Performed By: #### L 100.0100, L500.4050 #### [facility] [address] [place], [address] Neutrophils/100 WBC (Bld) 78.5 % High 47-[address] [facility] Comment on above: Performed By: #### L 100.0100, L500.4050 #### [facility] [address] [place], [address] Nucleated RBC (Bld) [#/Vol] 0 10*3/uL Normal 0-[address] [facility] Comment on above: Performed By: #### L 100.0100, L500.4050 #### [facility] [address] [place], [address] Platelet mean volume (Bld) [Entitic vol] 10.7 fL Normal 6.2-12.[address] [facility] Comment on above: Performed By: #### L 100.0100, L500.4050 #### [facility] [address] [place], [address] Platelets (Bld) [#/Vol] 180 10*3/uL Normal 150-[address] [facility] Comment on above: Performed By: #### L 100.0100, L500.4050 #### [facility] Laboratory [address] [place], [address] RBC (Bld) [#/Vol] 4.15 10*6/uL Low 4.2-5.4 [facility] Comment on above: Performed By: #### L 100.0100, L500.4050 #### [facility] Laboratory [address] [place], [address] RDW SD 39.5 fl Normal 35.1-43.[address] [facility] Comment on above: Performed By: #### L 100.0100, L500.4050 #### [facility] [address] [place], [address] WBC (Bld) [#/Vol] 7.8 10*3/uL Normal 4.4-11.0 [facility] Comment on above: Performed By: #### L 100.0100, L500.4050 #### [facility] [address] [place], [address] [facility] 05-07-2025 Albumin [Mass/Vol] 4.2 g/dL Normal 3.5-5.0 [facility] Comment on above: Performed By: #### L 100.0100, L500.4050 #### [facility] [address] [place], [address] Albumin/Globulin [Mass ratio] 1.6 {ratio} Normal 0.9-2.[address] [facility] Comment on above: Performed By: #### L 100.0100, L500.4050 #### [facility] [address] [place], [address] ALK PHOS 62 U/L Normal 35-[address] [facility] Comment on above: Performed By: #### L 100.0100, L500.4050 #### [facility] [address] [place], [address] ALT [Catalytic activity/Vol] 58 U/L High <=[address] [facility] Comment on above: Performed By: #### L 100.0100, L500.4050 #### [facility] [address] [place], [address] AST [Catalytic activity/Vol] 43 U/L High <=[address] [facility] Comment on above: Performed By: #### L 100.0100, L500.4050 #### [facility] [address] [place], [address] Bilirubin [Mass/Vol] 0.56 mg/dL Normal 0.00-1.30 [facility] Comment on above: Performed By: #### L 100.0100, L500.4050 #### [facility] [address] [place], [address] BUN/CRE 10.7 RATIO Normal 10-[address] [facility] Comment on above: Performed By: #### L 100.0100, L500.4050 #### [facility] [address] [place], [address] Calcium [Mass/Vol] 9.5 mg/dL Normal 7.6-11.0 [facility] Comment on above: Performed By: #### L 100.0100, L500.4050 #### [facility] [address] [place], [address] Chloride [Moles/Vol] 102 mmol/L Normal 98-108 [facility] Comment on above: Performed By: #### L 100.0100, L500.4050 #### [facility] [address] [place], [address] CO2 [Moles/Vol] 17.7 mmol/L Low 21.0-32.[address] [facility] Comment on above: Performed By: #### L 100.0100, L500.4050 #### [facility] [address] [place], [address] Creatinine [Mass/Vol] 0.59 mg/dL Low 0.70-1.20 [facility] Comment on above: Performed By: #### L 100.0100, L500.4050 #### [facility] [address] [place], [address] GAP 16 High 5-[address] [facility] Comment on above: Performed By: #### L 100.0100, L500.4050 #### [facility] [address] [place], [address] GFR/1.73 sq M.predicted among non-blacks MDRD (S/P/Bld) [Vol rate/Area] 128 mL/min/{1.73_m2} Normal >[address] [facility] Comment on above: Result Comment: mL/m in/1.73m2 CKD-EPI Creatinine Equation (2020) Performed By: #### L 100.0100, L500.4050 #### [facility] [address] [place], [address] Globulin (S) [Mass/Vol] 2.7 g/dL Normal 2.2-4.[address] [facility] Comment on above: Performed By: #### L 100.0100, L500.4050 #### [facility] [address] [place], [address] Glucose [Mass/Vol] 110 mg/dL High 70-99 [facility] Comment on above: Performed By: #### L 100.0100, L500.4050 #### [facility] [address] [place], [address] Potassium [Moles/Vol] 3.7 mmol/L Normal 3.3-5.1 [facility] Comment on above: Performed By: #### L 100.0100, L500.4050 #### [facility] [address] [place], [address] Sodium [Moles/Vol] 135 mmol/L Normal 133-145 [facility] Comment on above: Performed By: #### L 100.0100, L500.4050 #### [facility] [address] [place], [address] T PROT 6.9 g/dL Normal 5.9-8.[address] [facility] Comment on above: Performed By: #### L 100.0100, L500.4050 #### [facility] [address] [place], [address] Urea nitrogen [Mass/Vol] 6 mg/dL Normal 4-[address] [facility] Comment on above: Performed By: #### L 100.0100, L500.4050 #### [facility] [address] [place], [address] HIVon 05-07-2025 HIV Non-Reactive Normal Nonreactive [facility] Comment on above: Result Comment: Non- Reactive Reactive Repeatedly reactive samples must be confirmed according to CDC recommended confirmatory algorithms. The subresults for either HIVAG or AHIV can be used as an aid in the selection of the confirmation algorithm for reactive samples. [facility] Order the HIV antibody detection and differentiation: lc#[id number] Performed By: #### L 100.0100, L500.4050 #### [facility] [address] [place], [address] Hemoglobin A1con 05-07-2025 HbA1c (Bld) [Mass fraction] 5.1 % Normal <=5.[address] [facility] Comment on above: Result Comment: Norm al < 5.7 % Prediabetic 5.7 - 6.4 % Diabetic >or= 6.5 % Please note range changes. Performed By: #### L 100.0100, L500.4050 #### [facility] [address] [place], [address] Hepatitis C Antibodyon 05-07 Hepatitis C Ab Non-Reactive Normal Nonreactive [facility] Comment on above: Result Comment: Reac tive: Presumptive evidence of antibodies to HCV. Follow CDC recommendations for supplemental testing. Non-Reactive: Antibodies to HCV were not detected; does not exclude the possibility of exposure to HCV Reactive Results are presumptive evidence of antibodies to HCV. Follow CDC recommendations for supplemental testing. Order confirmation testing: HCV Quant by PCR testing - HCVPCR #[id number] Non Reactive: < 0.8 Equivocal: >/= 0.8 to < 1.0 Reactive: >/= 1.0 The CDC requires that a reactive/equivocal HCV antibody result be sent out for confirmation. HCV Quant by PCR testing. Performed By: #### L 100.0100, L500.4050 #### [facility] [address] [place], [address] L3890.6102on 05-07-2025 HEP B Surf Ag Non-Reactive Normal Nonreactive [facility] Comment on above: Result Comment: Reac tive: Presumptive evidence of HBV. Repeatedly reactive samples must be confirmed using a neutralization test ([employer] HBsAg Confirmatory Test) Non-Reactive: HBsAg not detected; does not exclude the possibility of exposure to HBV Performed By: #### L 100.0100, L500.4050 #### [facility] [address] [place], [address] L509.4006on 05-07-2025 Rubella IgG REAC Normal Nonreactive [facility] Comment on above: Result Comment: Anti body Result: Interpretation Non-Reactive: Non-Immune Reactive: Immune The following results were obtained with the [employer] Rubella IgG assay. Results from assays of other manufacturers cannot be used interchangeably. Performed By: #### L 100.0100, L500.4050 #### [facility] [address] [place], [address] Project Control Analyst Office Visit Reporton 05-07-2025 Project Control Analyst Office Visit Report [facility]'s [address], [address] [place] [address] OFFICE VISIT Date of Service: 05/07/25 MR#: [id number] Acct: [id number] Name: LUZ OLIVEIRA Rep #: [id number] : 2000 Provider: JELENA Ordonez ams Age/Sex: 24/F Location: [facility] Status: Signed Intake Vital Signs 01/02/25 18:31 04/09/25 10:40 07/28/25 14:40 Height 5 ft 1 in 5 ft 1 in 5 ft 1 in Weight: 187 lb 4 oz BMI 35.4 BP 117/83 H Intake Visit Reasons: 13wk OB Chief Complaint: 13wk OB Hand Cigar Making Supervisor Required: No Is patient in pain?: No Allergies escitalopram (From Lexapro) Adverse Reaction (Severe, Verified 05/07/25 14:39) SUICIDAL citalopram hydrobromide (From Celexa) Adverse Reaction (Verified 05/07/25 14:39) Other Medications ???Medication ???Instructions ???Recorded ???Confirmed ???Type limonhjk-sfg-Kp-FA 1 mg 1 tab PO DAILY 08/09/22 05/07/25 H istory tablet metoclopramide HCl 5 mg tablet 5 mg PO QACHS #60 tabs 04/19/25 Rx (Reglan) Last Menstrual Period: 02/02/25 : No PFSH PFSH Medical History Congenital rlzjje-kisqbkk-fvqte reflux Surgical History [place] teeth removed Family History Grandmother Breast cancer Brain cancer Grandfather CVA (cerebral vascular accident) Mother Diabetes Heart failure MRSA carrier History of recurrent miscarriages Father Hypertension Social History adopted: No household members: spouse and children housing: house number of children: 1 current occupation: 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 Normal [facility] Syphilis Antibodieson 2024 Syphilis Abs Non-Reactive Normal Nonreactive [facility] Comment on above: Performed By: #### L 100.0100, L500.4050 #### [facility] [address] [place], [address] Type AND Screenon 05-07-2025 Ab SCREEN GEL Negative Normal [facility] Comment on above: Order Comment: PN Performed By: #### L 100.0100, L500.4050 #### [facility] [address] [place], [address] Chlamydia/GC CHICHO aptimaon CHLAMY,NUC ACID Negative Normal Negative [facility] Comment on above: Performed By: #### L 100.0100 #### [facility] [address] [place], [address] GC BY NUC ACID Negative Normal Negative [facility] Comment on above: Result Comment: Perf ormed at: =G - [facility] [address] [id number] Inventory Control Manager: Rubi Snow MD, Phone: [phone] Performed By: #### L 100.0100 #### [facility] [address] [place], [address] PAP I-G w/rfx hrHPV-Aptimaon 04-12-2025 ADEQ Comment Normal . [facility] Comment on above: Order Comment: REDRA W. PREVIOUS SPECIMEN REJECTED DUE TO CLOTTED SPECIMEN. 01/02/251948 Result Comment: Sati sfactory for evaluation. Endocervical and/or squamous metaplastic cells (endocervical component) are present. Performed By: #### L 100.0100 #### [facility] [address] [place], [address] COMM . Normal . [facility] Comment on above: Order Comment: REDRA W. PREVIOUS SPECIMEN REJECTED DUE TO CLOTTED SPECIMEN. 01/02/251948 Performed By: #### L 100.0100 #### [facility] [address] [place], [address] COMMENT Comment Normal . [facility] Comment on above: Order Comment: REDRA W. PREVIOUS SPECIMEN REJECTED DUE TO CLOTTED SPECIMEN. 01/02/251948 Result Comment: This liquid based ThinPrep(R) pap test was screened with the use of an image guided system. Performed By: #### L 100.0100 #### [facility] [address] [place], [address] DIAG Comment Normal . [facility] Comment on above: Order Comment: REDRA W. PREVIOUS SPECIMEN REJECTED DUE TO CLOTTED SPECIMEN. 01/02/251948 Result Comment: NEGA TIVE FOR INTRAEPITHELIAL LESION OR MALIGNANCY. Performed By: #### L 100.0100 #### [facility] [address] [place], [place], [address] HPV RFLX Comment Normal . [facility] Comment on above: Order Comment: REDRA W. PREVIOUS SPECIMEN REJECTED DUE TO CLOTTED SPECIMEN. 01/02/251948 Result Comment: The HPV DNA reflex criteria were not met with this specimen result therefore, no HPV testing was performed. Performed at: - [facility] [id number] Inventory Control Manager: Rubi Snow MD, Phone: [phone] Performed By: #### L 100.0100 #### [facility] [address] [place], [place], [address] PAPSMR Comment Normal . [facility] Comment on above: Order Comment: REDRA [...] occur. Performed By: #### L 100.0100 #### [facility] [address] [place], [place], [address] PERFORM Comment Normal . [facility] Comment on above: Order Comment: REDRA W. PREVIOUS SPECIMEN REJECTED DUE TO CLOTTED SPECIMEN. 01/02/251948 Result Comment: Delores Lombardo, Route Manager (ASCP) Performed By: #### L 100.0100 #### [facility] [address] [place], [place], [address] Urine Cultureon 04-11-2025 [facility] Mixed Gram Positive Organisms [place] Count 80,000-100,000 MIXC Mixed contaminants. Submit a new specimen if indicated. Normal [facility] Comment on above: Performed By: #### L 100.0100 #### [facility] [place], [address] Project Control Analyst Office Visit Reporton 04-09-2025 Project Control Analyst Office Visit Report [facility] [address], [address] [place] [address] OFFICE VISIT Date of Service: 04/09/25 MR#: [id number] Acct: [id number] Name: LUZ OLIVEIRA Rep #: [id number] : 2000 Provider: Dr. Geraldine storey MD Age/Sex: 24/F Location: [facility] Status: Signed Intake Vital Signs 01/02/25 18:31 03/13/25 11:49 04/09/25 10:39 04/09/25 10:40 Height 5 ft 1 in 5 ft 1 in 5 ft 1 in 5 ft 1 in Weight: 194 lb 8 oz BMI 36.7 BP 106/69 Intake Visit Reasons: *NEW* NOB LMP 02/02, KIMO 11/09 per Hand Cigar Making Supervisor Required: No Is patient in pain?: Yes (cramping with urination) Allergies escitalopram (From Lexapro) Adverse Reaction (Severe, Verified 04/09/25 10:39) SUICIDAL citalopram hydrobromide (From Celexa) Adverse Reaction (Verified 04/09/25 10:39) Other Medications ???Medication ???Instructions ???Recorded ???Confirmed ???Type udzwbpwy-zzp-Dz-FA 1 mg 1 tab PO DAILY 08/09/22 04/09/25 H istory tablet Last Menstrual Period: 02/02/25 Zika: Zika virus screening: Negative : No PFSH PFSH Medical History (Updated 04/09/25 @ 10:50 by Remedios Wong) Congenital xumnpv-vobbyzd-meven reflux Surgical History [place] teeth removed Family History Grandmother Breast cancer Brain cancer Grandfather CVA (cerebral vascular accident) Mother Diabetes Heart failure MRSA carrier History of recurrent miscarriages Father Hypertension Social History adopted: No household members: spouse and children housing: house number of children: 1 current occupation: 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 Date Name GA/Weeks Outcome Route Bth Weight Infant Gen Labor Lgth Anesthesia Del Locatn Provider FOB 10/11/18 Chemical 4 spontaneous 03/30/23 Amanda 39 live - full term vacuum 6lbs 1oz Female epidural [place] [employer] Delivery Date: 03/30/23 Last Updated [...] Normal am (more content not included)... Normal [facility] Protein+Creatinine Ratio,Uri neon 04-09-2025 PROT:CRE RATIO 58 mg/g CRE Normal 0-[address] [facility] Comment on above: Performed By: #### L 100.0100 #### [facility] [address] [place], [address] Protein (U) [Mass/Vol] 15.6 mg/dL High 0.0-12.[address] [facility] Comment on above: Performed By: #### L 100.0100 #### [facility] [address] [place], [address] Transvaginal w/Preg USon Transvaginal w/Preg US [facility] [address] [place], [place] [address] Transvaginal w/Preg US MR#: [id number] Acct: [id number] Name: LUZ OLIVEIRA Rep #: [id number] : 2000 F 24 From: Maxwell Ponce MD PCP: Care Physician,No Primary Status: REG CLI Study: Transvaginal w/Preg US Date of Exam: 03/15/25 Exam# [id number] Ordering Dr: Remedios Garcia DIRECTOR PHYSICAL THERAPY DIRECTOR PHYSICAL THERAPY -C PROCEDURE: TRANSVAGINAL W/PREG US 03/15/2025 REASON [...] follow-up. 2. Small perigestational hemorrhage. Reading Location: [facility] CC: JARAD Garcia; No Primary Care Physician Renewals Manager: Signed Normal [facility] hCG Titer Quant., Serumon HCG QUANT. 7025 mIU/mL High <9 non-preg [facility] Comment on above: Result Comment: Gest ational Age 0.2-1 Week: 5-50 mIU/mL 1-2 Weeks: 50-500 mIU/mL 2-3 Weeks: 100-5000 mIU/mL 3-4 Weeks: 500-10,000 mIU/mL 4-5 Weeks:1000-50,000 mIU/mL 5-6 Weeks: 10,000-100,000 mIU/mL 6-8 Weeks: 15,000-200,000 mIU/mL 2-3 Months:10,000-100,000 mIU/mL Performed By: #### L 100.0100 #### [facility] [address] [place], [address] Office Visit Reporton 2024 Office Visit Report [facility] [address] [place] [address] OFFICE VISIT Date of Service: 03/13/25 MR#: [id number] Acct: [id number] Patient: LUZ OLIVEIRA Rep #: [id number] : 2000 Provider: JARAD moctezuma Age/Sex: 24/F Location: [facility] Status: Signed Intake Vital Signs 01/02/25 18:31 03/13/25 11:49 Height 5 ft 1 in 5 ft 1 in Weight: 200 lb 6 oz BMI 37.8 BP 118/72 Intake Visit Reasons: Pre New OB, Confirm preg, Vitals Hand Cigar Making Supervisor Required: No Is patient in pain?: No Allergies escitalopram (From Lexapro) Adverse Reaction (Severe, Verified 03/13/25 11:12) SUICIDAL citalopram hydrobromide (From Celexa) Adverse Reaction (Verified 03/13/25 11:12) Other Medications ???Medication ???Instructions ???Recorded ???Confirmed ???Type fmxppuiu-bhe-Eu-FA 1 mg 1 tab PO DAILY 08/09/22 [...] Pt with C/O spotting since last night. [facility] notified in office. HcG and TV US [...] Acute (9) Autism: Status: Acute (10) Congenital nlapte-tyoukgo-sxxyj reflux: Status: Acute Comment: Recurrent UTI's and Kidney stones Orders: Orders hCG Titer Quant., Serum Today Remedios Garcia DIRECTOR PHYSICAL THERAPY, DIRECTOR PHYSICAL THERAPY-C O20.9 - Hemorrhage in early , unspecified [...] , unspecified, unspecified trimester Type Screen 04/09/25 AJRAD Lee NP O09.90 - Supervision of high [...] fallen in the past year?: No 03/13/25 2111 (more content not included)... Normal [facility] hCG Titer Quant., Serumon HCG QUANT. 3759 mIU/mL High <9 non-preg [facility] Comment on above: Result Comment: Gest ational Age 0.2-1 Week: 5-50 mIU/mL 1-2 Weeks: 50-500 mIU/mL 2-3 Weeks: 100-5000 mIU/mL 3-4 Weeks: 500-10,000 mIU/mL 4-5 Weeks:1000-50,000 mIU/mL 5-6 Weeks: 10,000-100,000 mIU/mL 6-8 Weeks: 15,000-200,000 mIU/mL 2-3 Months:10,000-100,000 mIU/mL Performed By: #### L 100.0100 #### [facility] [address] [place], [place], [address] Culture, Blood (WB)on 2024 CUB Blood cultures x2, from two different sites No growth in 5 days. Normal [facility] Comment on above: Performed By: #### M 100.678, M100.2200, L400.0001 #### [facility] [address] [place], [place], [address] Urine Cultureon 01-04-2025 [facility] Presumptive E. coli [place] Count 25,000-50,000 Presumptive E. coli: REACTION Ampicillin [...] TMP SMX Islt BRANDI <=[address] S Normal [facility] Comment on above: Performed By: #### M 100.678, M100.2200, L400.0001 #### [facility] [address] [place], [address] Abdomen/Pelvis W IV Cont ONL Yon 01-02-2025 Abdomen/Pelvis W IV Cont ONLY [facility] Services [address] [place], [place] [address] Abdomen/Pelvis W IV Cont ONLY MR#: [id number] Acct: [id number] Name: LUZ OLIVEIRA Rep #: [id number] : 2000 F 24 From: Yari Reyes nd, MD PCP: Care Physician,No Primary Status: REG ER Study: Abdomen/Pelvis W IV Cont ONLY Date of Exam: Exam# [id number] Ordering Dr: Mendez Gardner DO PROCEDURE: ABDOMEN/PELVIS [...] recommended. 3. Diffuse hepatic steatosis. Reading Location: [facility] CC: Dr. Mendez Gardner, DO; No Primary Care Physician Renewals Manager: Signed Normal [facility] CBC W/Diff, Automatedon 12-10 Absolute Lymph 0.64 X10 3/uL Low 0.83-4.[address] [facility] Comment on above: Order Comment: REDRA W. PREVIOUS SPECIMEN REJECTED DUE TO CLOTTED SPECIMEN. 01/02/251948 Performed By: #### L 100.0100 #### [facility] [address] [place], [address] Absolute Neut 9.4 X10 3/uL High 2.0-7.[address] [facility] Comment on above: Order Comment: REDRA W. PREVIOUS SPECIMEN REJECTED DUE TO CLOTTED SPECIMEN. 01/02/251948 Performed By: #### L 100.0100 #### [facility] [address] [place], [address] Basophils/100 WBC (Bld) 0.1 % Normal 0-[address] [facility] Comment on above: Order Comment: REDRA W. PREVIOUS SPECIMEN REJECTED DUE TO CLOTTED SPECIMEN. 01/02/251948 Performed By: #### L 100.0100 #### [facility] [address] [place], [address] Eosinophils/100 WBC (Bld) 0.0 % Normal 0-[address] [facility] Comment on above: Order Comment: REDRA W. PREVIOUS SPECIMEN REJECTED DUE TO CLOTTED SPECIMEN. 01/02/251948 Performed By: #### L 100.0100 #### [facility] [address] [place], [address] Erythrocyte distribution width (RBC) [Ratio] 12.4 % Normal 11.6-14.[address] [facility] Comment on above: Order Comment: REDRA W. PREVIOUS SPECIMEN REJECTED DUE TO CLOTTED SPECIMEN. 01/02/251948 Performed By: #### L 100.0100 #### [facility] [address] [place], [address] Hematocrit (Bld) [Volume fraction] 41.9 % Normal 37-[address] [facility] Comment on above: Order Comment: REDRA W. PREVIOUS SPECIMEN REJECTED DUE TO CLOTTED SPECIMEN. 01/02/251948 Performed By: #### L 100.0100 #### [facility] [address] [place], [address] Hemoglobin (Bld) [Mass/Vol] 14.6 g/dL Normal 12.0-15.[address] [facility] Comment on above: Order Comment: REDRA W. PREVIOUS SPECIMEN REJECTED DUE TO CLOTTED SPECIMEN. 01/02/251948 Performed By: #### L 100.0100 #### [facility] [address] [place], [address] IG% 0.600 Normal 0.0-0.[address] [facility] Comment on above: Order Comment: REDRA W. PREVIOUS SPECIMEN REJECTED DUE TO CLOTTED SPECIMEN. 01/02/251948 Result Comment: IG% - Immature Granulocytes (promyelocytes, myelocytes and metamyelocytes) > 1% indicates that a LEFT SHIFT is Present. Performed By: #### L 100.0100 #### [facility] [address] [place], [address] Lymphocytes/100 WBC (Bld) 5.9 % Low 19-[address] [facility] Comment on above: Order Comment: REDRA W. PREVIOUS SPECIMEN REJECTED DUE TO CLOTTED SPECIMEN. 01/02/251948 Performed By: #### L 100.0100 #### [facility] [address] [place], [address] MCH (RBC) [Entitic mass] 30.8 pg Normal 27.0-32.[address] [facility] Comment on above: Order Comment: REDRA W. PREVIOUS SPECIMEN REJECTED DUE TO CLOTTED SPECIMEN. 01/02/251948 Performed By: #### L 100.0100 #### [facility] [address] [place], [address] MCHC (RBC) [Mass/Vol] 34.8 g/dL Normal 32-36 [facility] Comment on above: Order Comment: REDRA W. PREVIOUS SPECIMEN REJECTED DUE TO CLOTTED SPECIMEN. 01/02/251948 Performed By: #### L 100.0100 #### [facility] [address] [place], [address] MCV (RBC) [Entitic vol] 88.4 fL Normal 81-[address] [facility] Comment on above: Order Comment: REDRA W. PREVIOUS SPECIMEN REJECTED DUE TO CLOTTED SPECIMEN. 01/02/251948 Performed By: #### L 100.0100 #### [facility] [address] [place], [address] Monocytes/100 WBC (Bld) 5.9 % Normal 0-[address] [facility] Comment on above: Order Comment: REDRA W. PREVIOUS SPECIMEN REJECTED DUE TO CLOTTED SPECIMEN. 01/02/251948 Performed By: #### L 100.0100 #### [facility] [address] [place], [address] Neutrophils/100 WBC (Bld) 87.5 % High 47-[address] [facility] Comment on above: Order Comment: REDRA W. PREVIOUS SPECIMEN REJECTED DUE TO CLOTTED SPECIMEN. 01/02/251948 Performed By: #### L 100.0100 #### [facility] [address] [place], [address] Nucleated RBC (Bld) [#/Vol] 0 10*3/uL Normal 0-[address] [facility] Comment on above: Order Comment: REDRA W. PREVIOUS SPECIMEN REJECTED DUE TO CLOTTED SPECIMEN. 01/02/251948 Performed By: #### L 100.0100 #### [facility] [address] [place], [address] Platelet mean volume (Bld) [Entitic vol] 10.2 fL Normal 6.2-12.[address] [facility] Comment on above: Order Comment: REDRA W. PREVIOUS SPECIMEN REJECTED DUE TO CLOTTED SPECIMEN. 01/02/251948 Performed By: #### L 100.0100 #### [facility] [address] [place], [address] Platelets (Bld) [#/Vol] 188 10*3/uL Normal 150-[address] [facility] Comment on above: Order Comment: REDRA W. PREVIOUS SPECIMEN REJECTED DUE TO CLOTTED SPECIMEN. 01/02/251948 Performed By: #### L 100.0100 #### [facility] [address] [place], [address] RBC (Bld) [#/Vol] 4.74 10*6/uL Normal 4.2-5.4 [facility] Comment on above: Order Comment: REDRA W. PREVIOUS SPECIMEN REJECTED DUE TO CLOTTED SPECIMEN. 01/02/251948 Performed By: #### L 100.0100 #### [facility] [address] [place], [address] RDW SD 40.1 fl Normal 35.1-43.[address] [facility] Comment on above: Order Comment: REDRA W. PREVIOUS SPECIMEN REJECTED DUE TO CLOTTED SPECIMEN. 01/02/251948 Performed By: #### L 100.0100 #### [facility] [address] [place], [address] WBC (Bld) [#/Vol] 10.8 10*3/uL Normal 4.4-11.0 [facility] Comment on above: Order Comment: REDRA W. PREVIOUS SPECIMEN REJECTED DUE TO CLOTTED SPECIMEN. 01/02/251948 Performed By: #### L 100.0100 #### [facility] [address] [place], [address] Absolute Neut Normal 2.0-7.[address] [facility] Comment on above: Result Comment: This specimen has been REJECTED due to Laboratory criteria: Clotted. ED-ELVIN has been notified of need of recollection. 01/02/251947 Performed By: #### M 100.678, M100.2200, L400.0001 #### [facility] [address] [place], [address] HCT Normal 37-[address] [facility] Comment on above: Result Comment: This specimen has been REJECTED due to Laboratory criteria: Clotted. ED-ELVIN has been notified of need of recollection. 01/02/251947 Performed By: #### M 100.678, M100.2200, L400.0001 #### [facility] [address] [place], [address] HGB Normal 12.0-15.[address] [facility] Comment on above: Result Comment: This specimen has been REJECTED due to Laboratory criteria: Clotted. ED-ELVIN has been notified of need of recollection. 01/02/251947 Performed By: #### M 100.678, M100.2200, L400.0001 #### [facility] [address] [place], [address] MCH Normal 27.0-32.[address] [facility] Comment on above: Result Comment: This specimen has been REJECTED due to Laboratory criteria: Clotted. ED-ELVIN has been notified of need of recollection. 01/02/251947 Performed By: #### M 100.678, M100.2200, L400.0001 #### [facility] [address] [place], [address] MCHC Normal 32-[address] [facility] Comment on above: Result Comment: This specimen has been REJECTED due to Laboratory criteria: Clotted. ED-ELVIN has been notified of need of recollection. 01/02/251947 Performed By: #### M 100.678, M100.2200, L400.0001 #### [facility] [address] [place], [address] MCV Normal 81-[address] [facility] Comment on above: Result Comment: This specimen has been REJECTED due to Laboratory criteria: Clotted. ED-ELVIN has been notified of need of recollection. 01/02/251947 Performed By: #### M 100.678, M100.2200, L400.0001 #### [facility] [address] [place], [address] NEUT% Normal 47-[address] [facility] Comment on above: Result Comment: This specimen has been REJECTED due to Laboratory criteria: Clotted. ED-ELVIN has been notified of need of recollection. 01/02/251947 Performed By: #### M 100.678, M100.2200, L400.0001 #### [facility] [address] [place], [address] PLT Normal 150-[address] [facility] Comment on above: Result Comment: This specimen has been REJECTED due to Laboratory criteria: Clotted. ED-ELVIN has been notified of need of recollection. 01/02/251947 Performed By: #### M 100.678, M100.2200, L400.0001 #### [facility] [address] [place], [address] RBC Normal 4.2-5.[address] [facility] Comment on above: Result Comment: This specimen has been REJECTED due to Laboratory criteria: Clotted. ED-ELVIN has been notified of need of recollection. 01/02/251947 Performed By: #### M 100.678, M100.2200, L400.0001 #### [facility] [address] [place], [address] RDW CV Normal 11.6-14.[address] [facility] Comment on above: Result Comment: This specimen has been REJECTED due to Laboratory criteria: Clotted. ED-ELVIN has been notified of need of recollection. 01/02/251947 Performed By: #### M 100.678, M100.2200, L400.0001 #### [facility] [address] [place], [address] RDW SD Normal 35.1-43.[address] [facility] Comment on above: Result Comment: This specimen has been REJECTED due to Laboratory criteria: Clotted. ED-ELVIN has been notified of need of recollection. 01/02/251947 Performed By: #### M 100.678, M100.2200, L400.0001 #### [facility] [address] [place], [address] WBC Normal 4.4-11.[address] [facility] Comment on above: Result Comment: This specimen has been REJECTED due to Laboratory criteria: Clotted. ED-ELVIN has been notified of need of recollection. 01/02/251947 Performed By: #### M 100.678, M100.2200, L400.0001 #### [facility] [address] [place], [address] Comprehensive Metabolic Prof ilon 01-02-2025 Albumin [Mass/Vol] 4.5 g/dL Normal 3.5-5.0 [facility] Comment on above: Performed By: #### M 100.678, M100.2200, L400.0001 #### [facility] [address] [place], [address] Albumin/Globulin [Mass ratio] 1.3 {ratio} Normal 0.9-2.[address] [facility] Comment on above: Performed By: #### M 100.678, M100.2200, L400.0001 #### [facility] [address] [place], [address] ALK PHOS 69 U/L Normal 35-[address] [facility] Comment on above: Performed By: #### M 100.678, M100.2200, L400.0001 #### [facility] [address] [place], [address] ALT [Catalytic activity/Vol] 50 U/L High <=[address] [facility] Comment on above: Performed By: #### M 100.678, M100.2200, L400.0001 #### [facility] [address] [place], [address] AST [Catalytic activity/Vol] 28 U/L Normal <=[address] [facility] Comment on above: Performed By: #### M 100.678, M100.2200, L400.0001 #### [facility] [address] [place], [address] Bilirubin [Mass/Vol] 0.96 mg/dL Normal 0.00-1.30 [facility] Comment on above: Performed By: #### M 100.678, M100.2200, L400.0001 #### [facility] [address] [place], [address] BUN/CRE 13.3 RATIO Normal 10-[address] [facility] Comment on above: Performed By: #### M 100.678, M100.2200, L400.0001 #### [facility] [address] [place], [address] Calcium [Mass/Vol] 9.6 mg/dL Normal 7.6-11.0 [facility] Comment on above: Performed By: #### M 100.678, M100.2200, L400.0001 #### [facility] [address] [place], [address] Chloride [Moles/Vol] 102 mmol/L Normal 98-108 [facility] Comment on above: Performed By: #### M 100.678, M100.2200, L400.0001 #### [facility] [address] [place], [address] CO2 [Moles/Vol] 23.0 mmol/L Normal 21.0-32.[address] [facility] Comment on above: Performed By: #### M 100.678, M100.2200, L400.0001 #### [facility] [address] [place], [address] Creatinine [Mass/Vol] 0.93 mg/dL Normal 0.70-1.20 [facility] Comment on above: Performed By: #### M 100.678, M100.2200, L400.0001 #### [facility] [address] [place], [address] ECRCL 94.15 ml/min Normal 50-[address] [facility] Comment on above: Performed By: #### M 100.678, M100.2200, L400.0001 #### [facility] [address] [place], [address] GAP 13 Normal 5-[address] [facility] Comment on above: Performed By: #### M 100.678, M100.2200, L400.0001 #### [facility] [address] [place], [address] GFR/1.73 sq M.predicted among non-blacks MDRD (S/P/Bld) [Vol rate/Area] 87 mL/min/{1.73_m2} Normal >[address] [facility] Comment on above: Result Comment: mL/m in/1.73m2 CKD-EPI Creatinine Equation (2020) Performed By: #### M 100.678, M100.2200, L400.0001 #### [facility] [address] [place], [address] Globulin (S) [Mass/Vol] 3.4 g/dL Normal 2.2-4.[address] [facility] Comment on above: Performed By: #### M 100.678, M100.2200, L400.0001 #### [facility] [address] [place], [address] Glucose [Mass/Vol] 109 mg/dL High 70-99 [facility] Comment on above: Performed By: #### M 100.678, M100.2200, L400.0001 #### [facility] [address] [place], [address] Potassium [Moles/Vol] 3.4 mmol/L Normal 3.3-5.1 [facility] Comment on above: Performed By: #### M 100.678, M100.2200, L400.0001 #### [facility] [address] [place], [address] Sodium [Moles/Vol] 138 mmol/L Normal 133-145 [facility] Comment on above: Performed By: #### M 100.678, M100.2200, L400.0001 #### [facility] [address] [place], [address] T PROT 7.9 g/dL Normal 5.9-8.[address] [facility] Comment on above: Performed By: #### M 100.678, M100.2200, L400.0001 #### [facility] [address] [place], [address] Urea nitrogen [Mass/Vol] 12 mg/dL Normal 4-[address] [facility] Comment on above: Performed By: #### M 100.678, M100.2200, L400.0001 #### [facility] [address] [place], [address] Emergency Department Summary on 01-02-2025 Emergency Department Summary [facility] Medical Records Department [address] [place] [address] Emergency Department Summary 01/02/25 MR#: [id number] Acct: [id number] Name: LUZ OLIVEIRA Rep #: [id number] : 2000 24 From: Mendez Gardner DO [...] that she tried Azo at home. [facility] Medical History Lumbar radiculopathy, acute Acute lumbar myofascial strain Blunt abdominal trauma Chest wall contusion Cervical strain, acute Concussion without loss of consciousness Crushing injury of right great toe, initial encounter Congenital rctzjm-ienoinz-vokzs reflux Home Medications ???Medication ???Instructions ???Recorded ???Last Taken ???Type vmqlltzv-xbg-Oy-FA 1 mg 1 tab PO DAILY 08/09/22 [...] (cerebral vascular accident) Mother Diabetes Surgical History [place] teeth removed Social History household members: spouse [...] Respiratory Rat (more content not included)... Normal [facility] Lactic Acidon 01-02-2025 Lactate [Moles/Vol] 1.1 mmol/L Normal 0.0-2.0 [facility] Comment on above: Order Comment: Y Performed By: #### M 100.678, M100.2200, L400.0001 #### [facility] [address] [facility] [place], [place], [address] Lipaseon 01-02-2025 Lipase [Catalytic activity/Vol] 19 U/L Normal 13-[address] [facility] Comment on above: Result Comment: Pletiny paez note: LIPASE revised reference range effective 23. New Lipase methodology. Expected to produce lower values than the previous assay method. NEW Reference Range: 13 - 75 U/L Performed By: #### M 100.678, M100.2200, L400.0001 #### [facility] [address] [place], [address] M100.678on 01-02-2025 M100.678 Pending SARS-CoV-2 (COVID 19) Negative INFLUENZA A Negative INFLUENZA B Negative RSV PCR Negative Normal [facility] Comment on above: Performed By: #### M 100.678, M100.2200, L400.0001 #### [facility] [address] [place], [address] Partial Thromboplast Timeon 01-02-2025 aPTT Coag (Bld) [Time] 33.7 s Normal 24.1-36.[address] [facility] Comment on above: Performed By: #### M 100.678, M100.2200, L400.0001 #### [facility] [address] [place], [address] ,Serum,hCG Quali.on 01-02-2025 HCG, SERUM QUAL Negative Normal [facility] Comment on above: Performed By: #### M 100.678, M100.2200, L400.0001 #### [facility] [address] [place], [address] Prothrombin Time w/INRon INR Coag (PPP) [Relative time] 1.1 {INR} Normal [facility] Comment on above: Performed By: #### M 100.678, M100.2200, L400.0001 #### [facility] [address] [place], [address] PT Coag (PPP) [Time] 14.5 s Normal 11.7-14.9 [facility] Comment on above: Performed By: #### M 100.678, M100.2200, L400.0001 #### [facility] [address] [place], [address] Urinalysis, Completeon 01-02 EPI,SQUAMOUS 5-10 SEEN Normal 5-[address] [facility] Comment on above: Order Comment: CLEAN CATCH Performed By: #### M 100.678, M100.2200, L400.0001 #### [facility] [address] [place], [address] BACTERIA 3+ /hpf Normal None Seen [facility] Comment on above: Order Comment: CLEAN CATCH Performed By: #### M 100.678, M100.2200, L400.0001 #### [facility] [address] [place], [address] RBC 5-10 SEEN Normal 0-[address] [facility] Comment on above: Order Comment: CLEAN CATCH Performed By: #### M 100.678, M100.2200, L400.0001 #### [facility] [address] [place], [address] WBC >100 SEEN Normal 0-[address] [facility] Comment on above: Order Comment: CLEAN CATCH Performed By: #### M 100.678, M100.2200, L400.0001 #### [facility] [address] [place], [address] Mucus Ql (Urine sed) 0 SEEN Normal [facility] Comment on above: Order Comment: CLEAN CATCH Performed By: #### M 100.678, M100.2200, L400.0001 #### [facility] [address] [place], [address] XR SPINE CERVICAL AP/LATon 0 02-19-2024 XR [...] 02/19/2024 1:39:46 AM Ordering Provider: KIRSTEN Miller [facility] [place] B12on 10-19-2023 Cobalamin (Vitamin B12) [Mass/Vol] 279 pg/mL Normal 211-911 [facility] Comment on above: Performed By: #### G FR, LIPID, HFP, A1C, IBC, TSH, CBC, ANEU, FT4, FERR, ADIFF, CMP, FE, VIDH, FT3 #### [address] [address] #### FOL, B12 #### [address] [address] FOLon 10-19-2023 Folate 8.29 ng/mL Normal 5.38-24.00 [facility] Comment on above: Performed By: #### G FR, LIPID, HFP, A1C, IBC, TSH, CBC, ANEU, FT4, FERR, ADIFF, CMP, FE, VIDH, FT3 #### [address] [address] #### FOL, B12 #### [address] [address] .Auto Diffon 10-15-2023 Basophil, Absolute 0.0 10 3/mcL Normal 0.0-0.2 [facility]) Comment on above: Performed By: #### G FR, LIPID, HFP, A1C, IBC, TSH, CBC, ANEU, FT4, FERR, ADIFF, CMP, FE, VIDH, FT3 #### [address] [address] #### FOL, B12 #### [address] [address] Basophils/100 WBC (Bld) 0.2 % Normal 0.0-2.5 [facility] Comment on above: Performed By: #### G FR, LIPID, HFP, A1C, IBC, TSH, CBC, ANEU, FT4, FERR, ADIFF, CMP, FE, VIDH, FT3 #### [address] [address] #### FOL, B12 #### [address] [address] Eosinophil, Absolute 0.0 10 3/mcL Normal 0.0-0.4 [facility] ([place]) Comment on above: Performed By: #### G FR, LIPID, HFP, A1C, IBC, TSH, CBC, ANEU, FT4, FERR, ADIFF, CMP, FE, VIDH, FT3 #### [address] [address] #### FOL, B12 #### [address] [address] Eosinophils/100 WBC (Bld) 0.6 % Normal 0.0-7.0 [facility] Comment on above: Performed By: #### G FR, LIPID, HFP, A1C, IBC, TSH, CBC, ANEU, FT4, FERR, ADIFF, CMP, FE, VIDH, FT3 #### [address] [address] #### FOL, B12 #### [address] [address] Lymphocyte, Absolute 1.5 10 3/mcL Normal 0.8-3.9 [facility] ([place]) Comment on above: Performed By: #### G FR, LIPID, HFP, A1C, IBC, TSH, CBC, ANEU, FT4, FERR, ADIFF, CMP, FE, VIDH, FT3 #### [address] [address] #### FOL, B12 #### [address] [address] Lymphocytes/100 WBC (Bld) 23.2 % Normal 10.0-50.0 [facility] Comment on above: Performed By: #### G FR, LIPID, HFP, A1C, IBC, TSH, CBC, ANEU, FT4, FERR, ADIFF, CMP, FE, VIDH, FT3 #### [address] [address] #### FOL, B12 #### [address] [address] Monocyte, Absolute 0.4 10 3/mcL Normal 0.2-1.0 [facility] ([place]) Comment on above: Performed By: #### G FR, LIPID, HFP, A1C, IBC, TSH, CBC, ANEU, FT4, FERR, ADIFF, CMP, FE, VIDH, FT3 #### [address] [address] #### FOL, B12 #### [address] [address] Monocytes/100 WBC (Bld) 5.6 % Normal 1.7-13.0 [facility] [place] Comment on above: Performed By: #### G FR, LIPID, HFP, A1C, IBC, TSH, CBC, ANEU, FT4, FERR, ADIFF, CMP, FE, VIDH, FT3 #### [address] [address] #### FOL, B12 #### [address] [address] Neutrophils/100 WBC (Bld) 70.4 % Normal 37.0-80.0 [facility] [place] Comment on above: Performed By: #### G FR, LIPID, HFP, A1C, IBC, TSH, CBC, ANEU, FT4, FERR, ADIFF, CMP, FE, VIDH, FT3 #### [address] [address] #### FOL, B12 #### [address] [address] .GFRon 10-15-2023 GFR Non- 73 ml/min/1.73sqm Normal [facility] [place] Comment on above: Result Comment: GFR Population [...] FERR, ADIFF, CMP, FE, VIDH, FT3 #### [address] [address] #### FOL, B12 #### [address] [address] GFR 89 ml/min/1.73sqm Normal [facility] [place] Comment on above: Result Comment: GFR Population [...] FERR, ADIFF, CMP, FE, VIDH, FT3 #### [address] [address] #### FOL, B12 #### [address] [address] .NEUABSon 10-15-2023 Neutrophil, Absolute 4.5 10 3/mcL Normal 2.9-6.2 [facility] ([place]) Comment on above: Performed By: #### G FR, LIPID, HFP, A1C, IBC, TSH, CBC, ANEU, FT4, FERR, ADIFF, CMP, FE, VIDH, FT3 #### [address] [address] #### FOL, B12 #### [address] [address] A1Con 10-15-2023 HbA1c (Bld) [Mass fraction] 4.9 % Normal 4.3-6.4 [facility] [place] Comment on above: Performed By: #### G FR, LIPID, HFP, A1C, IBC, TSH, CBC, ANEU, FT4, FERR, ADIFF, CMP, FE, VIDH, FT3 #### [address] [address] #### FOL, B12 #### [place] [address] CBCon 10-15-2023 Erythrocyte distribution width (RBC) [Ratio] 14.1 % Normal 11.5-14.5 [facility] [place] Comment on above: Performed By: #### G FR, LIPID, HFP, A1C, IBC, TSH, CBC, ANEU, FT4, FERR, ADIFF, CMP, FE, VIDH, FT3 #### [address] [address] #### FOL, B12 #### [address] [address] Hematocrit (Bld) [Volume fraction] 42.4 % Normal 37.0-47.0 [facility] [place] Comment on above: Performed By: #### G FR, LIPID, HFP, A1C, IBC, TSH, CBC, ANEU, FT4, FERR, ADIFF, CMP, FE, VIDH, FT3 #### [address] [address] #### FOL, B12 #### [address] [address] Hgb 14.5 G/dL Normal 12.0-16.0 [facility] [place] Comment on above: Performed By: #### G FR, LIPID, HFP, A1C, IBC, TSH, CBC, ANEU, FT4, FERR, ADIFF, CMP, FE, VIDH, FT3 #### [address] [address] #### FOL, B12 #### [address] [address] MCH (RBC) [Entitic mass] 30.8 pg Normal 27.0-31.2 [facility] [place] Comment on above: Performed By: #### G FR, LIPID, HFP, A1C, IBC, TSH, CBC, ANEU, FT4, FERR, ADIFF, CMP, FE, VIDH, FT3 #### [address] [address] #### FOL, B12 #### [address] [address] MCHC 34.2 G/dL Normal 33.0-37.0 [facility] [place] Comment on above: Performed By: #### G FR, LIPID, HFP, A1C, IBC, TSH, CBC, ANEU, FT4, FERR, ADIFF, CMP, FE, VIDH, FT3 #### [address] [address] #### FOL, B12 #### [address] [address] MCV (RBC) [Entitic vol] 90.3 fL Normal 80.0-94.0 [facility] [place] Comment on above: Performed By: #### G FR, LIPID, HFP, A1C, IBC, TSH, CBC, ANEU, FT4, FERR, ADIFF, CMP, FE, VIDH, FT3 #### [address] [address] #### FOL, B12 #### [address] [address] Platelet 237 10 3/mcL Normal 130-400 [facility] [place] Comment on above: Performed By: #### G FR, LIPID, HFP, A1C, IBC, TSH, CBC, ANEU, FT4, FERR, ADIFF, CMP, FE, VIDH, FT3 #### [address] [address] #### FOL, B12 #### [address] [address] Platelet mean volume (Bld) [Entitic vol] 8.6 fL Normal 7.4-10.4 [facility] [place] Comment on above: Performed By: #### G FR, LIPID, HFP, A1C, IBC, TSH, CBC, ANEU, FT4, FERR, ADIFF, CMP, FE, VIDH, FT3 #### [address] [address] #### FOL, B12 #### [address] [address] RBC 4.69 10 6/mcL Normal 4.20-5.40 [facility] [place] Comment on above: Performed By: #### G FR, LIPID, HFP, A1C, IBC, TSH, CBC, ANEU, FT4, FERR, ADIFF, CMP, FE, VIDH, FT3 #### [address] [address] #### FOL, B12 #### [place] [address] WBC 6.4 10 3/mcL Normal 4.6-10.8 [facility] ([place]) Comment on above: Performed By: #### G FR, LIPID, HFP, A1C, IBC, TSH, CBC, ANEU, FT4, FERR, ADIFF, CMP, FE, VIDH, FT3 #### [address] [address] #### FOL, B12 #### [address] [address] CMPon 10-15-2023 BUN/Creatinine Ratio 17 ratio Normal 7-27 [facility] ([place]) Comment on above: Performed By: #### G FR, LIPID, HFP, A1C, IBC, TSH, CBC, ANEU, FT4, FERR, ADIFF, CMP, FE, VIDH, FT3 #### [address] [address] #### FOL, B12 #### [address] [address] Calcium [Mass/Vol] 9.5 mg/dL Normal 8.4-10.2 [facility] ([place]) Comment on above: Performed By: #### G FR, LIPID, HFP, A1C, IBC, TSH, CBC, ANEU, FT4, FERR, ADIFF, CMP, FE, VIDH, FT3 #### [address] [address] #### FOL, B12 #### [address] [address] Chloride [Moles/Vol] 101 mmol/L Normal 98-107 [facility] ([place]) Comment on above: Performed By: #### G FR, LIPID, HFP, A1C, IBC, TSH, CBC, ANEU, FT4, FERR, ADIFF, CMP, FE, VIDH, FT3 #### [address] [address] #### FOL, B12 #### [address] [address] CO2 [Moles/Vol] 27 mmol/L Normal 22-29 [facility] ([place]) Comment on above: Performed By: #### G FR, LIPID, HFP, A1C, IBC, TSH, CBC, ANEU, FT4, FERR, ADIFF, CMP, FE, VIDH, FT3 #### [address] [address] #### FOL, B12 #### [address] [address] Creatinine [Mass/Vol] 0.94 mg/dL Normal 0.55-1.02 [facility] ([place]) Comment on above: Performed By: #### G FR, LIPID, HFP, A1C, IBC, TSH, CBC, ANEU, FT4, FERR, ADIFF, CMP, FE, VIDH, FT3 #### [address] [address] #### FOL, B12 #### [address] [address] Electrolyte Balance 13.0 mEq/L Normal 4.0-15.0 [facility] ([place]) Comment on above: Performed By: #### G FR, LIPID, HFP, A1C, IBC, TSH, CBC, ANEU, FT4, FERR, ADIFF, CMP, FE, VIDH, FT3 #### [address] [address] #### FOL, B12 #### [address] [address] Glucose [Mass/Vol] 92 mg/dL Normal 70-105 [facility] ([place]) Comment on above: Performed By: #### G FR, LIPID, HFP, A1C, IBC, TSH, CBC, ANEU, FT4, FERR, ADIFF, CMP, FE, VIDH, FT3 #### [address] [address] #### FOL, B12 #### [address] [address] Potassium [Moles/Vol] 4.2 mmol/L Normal 3.5-5.1 [facility] ([place]) Comment on above: Performed By: #### G FR, LIPID, HFP, A1C, IBC, TSH, CBC, ANEU, FT4, FERR, ADIFF, CMP, FE, VIDH, FT3 #### [address] [address] #### FOL, B12 #### [address] [address] Sodium [Moles/Vol] 141 mmol/L Normal 136-145 [facility] ([place]) Comment on above: Performed By: #### G FR, LIPID, HFP, A1C, IBC, TSH, CBC, ANEU, FT4, FERR, ADIFF, CMP, FE, VIDH, FT3 #### [address] [address] #### FOL, B12 #### [address] [address] Urea nitrogen [Mass/Vol] 16 mg/dL Normal 7-18 [facility] ([place]) Comment on above: Performed By: #### G FR, LIPID, HFP, A1C, IBC, TSH, CBC, ANEU, FT4, FERR, ADIFF, CMP, FE, VIDH, FT3 #### [address] [address] #### FOL, B12 #### [address] [address] FEon 10-15-2023 Iron [Mass/Vol] 141 ug/dL Normal 50-170 [facility] ([place]) Comment on above: Performed By: #### G FR, LIPID, HFP, A1C, IBC, TSH, CBC, ANEU, FT4, FERR, ADIFF, CMP, FE, VIDH, FT3 #### [address] [address] #### FOL, B12 #### [address] [address] Heidi 10-15-2023 Ferritin [Mass/Vol] 60.0 ng/mL Normal 8.0-252.0 [facility] ([place]) Comment on above: Performed By: #### G FR, LIPID, HFP, A1C, IBC, TSH, CBC, ANEU, FT4, FERR, ADIFF, CMP, FE, VIDH, FT3 #### [address] [address] #### FOL, B12 #### [address] [address] FT3on 10-15-2023 Free T3 [Mass/Vol] 3.26 pg/mL Normal 2.30-4.00 [facility] ([place]) Comment on above: Performed By: #### G FR, LIPID, HFP, A1C, IBC, TSH, CBC, ANEU, FT4, FERR, ADIFF, CMP, FE, VIDH, FT3 #### [address] [address] #### FOL, B12 #### [address] [address] FT4on 10-15-2023 Free T4 [Mass/Vol] 1.15 ng/dL Normal 0.76-1.46 [facility] ([place]) Comment on above: Performed By: #### G FR, LIPID, HFP, A1C, IBC, TSH, CBC, ANEU, FT4, FERR, ADIFF, CMP, FE, VIDH, FT3 #### [address] [address] #### FOL, B12 #### [address] [address] HFPon 10-15-2023 Bili Indirect 0.4 mg/dL Normal [facility] ([place]) Comment on above: Performed By: #### G FR, LIPID, HFP, A1C, IBC, TSH, CBC, ANEU, FT4, FERR, ADIFF, CMP, FE, VIDH, FT3 #### [address] [address] #### FOL, B12 #### [address] [address] Albumin Level 4.0 G/dL Normal 3.5-5.0 [facility] ([place]) Comment on above: Performed By: #### G FR, LIPID, HFP, A1C, IBC, TSH, CBC, ANEU, FT4, FERR, ADIFF, CMP, FE, VIDH, FT3 #### [address] [address] #### FOL, B12 #### [address] [address] Albumin/Globulin [Mass ratio] 1.1 {ratio} Normal 1.1-2.5 [facility] ([place]) Comment on above: Performed By: #### G FR, LIPID, HFP, A1C, IBC, TSH, CBC, ANEU, FT4, FERR, ADIFF, CMP, FE, VIDH, FT3 #### [address] [address] #### FOL, B12 #### [address] [address] ALP [Catalytic activity/Vol] 91 U/L Normal 40-135 [facility] ([place]) Comment on above: Performed By: #### G FR, LIPID, HFP, A1C, IBC, TSH, CBC, ANEU, FT4, FERR, ADIFF, CMP, FE, VIDH, FT3 #### [address] [address] #### FOL, B12 #### [address] [address] ALT [Catalytic activity/Vol] 25 U/L Normal 14-59 [facility] ([place]) Comment on above: Performed By: #### G FR, LIPID, HFP, A1C, IBC, TSH, CBC, ANEU, FT4, FERR, ADIFF, CMP, FE, VIDH, FT3 #### [address] [address] #### FOL, B12 #### [address] [address] AST [Catalytic activity/Vol] 15 U/L Normal 10-40 [facility] ([place]) Comment on above: Performed By: #### G FR, LIPID, HFP, A1C, IBC, TSH, CBC, ANEU, FT4, FERR, ADIFF, CMP, FE, VIDH, FT3 #### [address] [address] #### FOL, B12 #### [place] [id number] Bili Direct 0.2 mg/dL Normal 0.0-0.2 [facility] ([place]) Comment on above: Result Comment: Use of this assay is not recommended for patients undergoing treatment with eltrombopag due to the potential for falsely elevated results. Performed By: #### G FR, LIPID, HFP, A1C, IBC, TSH, CBC, ANEU, FT4, FERR, ADIFF, CMP, FE, VIDH, FT3 #### [address] [address] #### FOL, B12 #### [place] [address] Bili Total 0.6 mg/dL Normal 0.2-1.0 [facility] ([place]) Comment on above: Result Comment: Use of this assay is not recommended for patients undergoing treatment with eltrombopag due to the potential for falsely elevated results. Performed By: #### G FR, LIPID, HFP, A1C, IBC, TSH, CBC, ANEU, FT4, FERR, ADIFF, CMP, FE, VIDH, FT3 #### [address] [address] #### FOL, B12 #### [address] [address] Globulin 3.7 G/dL Normal [facility] ([place]) Comment on above: Performed By: #### G FR, LIPID, HFP, A1C, IBC, TSH, CBC, ANEU, FT4, FERR, ADIFF, CMP, FE, VIDH, FT3 #### [address] [address] #### FOL, B12 #### [place] [address] Total Protein 7.7 G/dL Normal 6.4-8.2 [facility] ([place]) Comment on above: Performed By: #### G FR, LIPID, HFP, A1C, IBC, TSH, CBC, ANEU, FT4, FERR, ADIFF, CMP, FE, VIDH, FT3 #### [address] [address] #### FOL, B12 #### [place] [address] IBCon 10-15-2023 TIBC 330 mcg/dL Normal 250-450 [facility] ([place]) Comment on above: Performed By: #### G FR, LIPID, HFP, A1C, IBC, TSH, CBC, ANEU, FT4, FERR, ADIFF, CMP, FE, VIDH, FT3 #### [address] [address] #### FOL, B12 #### [place] [id number] LABORATORYOrdered By: SYSTEM SYSTEM on 10-15-2023 25-hydroxyvitamin [...] 10-15-2023 Cholesterol [Mass/Vol] 172 mg/dL Normal 0-200 [facility] ([place]) Comment on above: Result Comment: Chol esterol Reference Interval: Less than 200 Desirable 200-239 Borderline high risk 240 and above High risk Performed By: #### G FR, LIPID, HFP, A1C, IBC, TSH, CBC, ANEU, FT4, FERR, ADIFF, CMP, FE, VIDH, FT3 #### [address] [address] #### FOL, B12 #### [address] [address] Cholesterol in HDL [Mass/Vol] 66 mg/dL High 40-60 [facility] ([place]) Comment on above: Performed By: #### G FR, LIPID, HFP, A1C, IBC, TSH, CBC, ANEU, FT4, FERR, ADIFF, CMP, FE, VIDH, FT3 #### [address] [address] #### FOL, B12 #### [address] [address] Cholesterol in LDL [Mass/Vol] 80 mg/dL Normal 0-130 [facility] ([place]) Comment on above: Performed By: #### G FR, LIPID, HFP, A1C, IBC, TSH, CBC, ANEU, FT4, FERR, ADIFF, CMP, FE, VIDH, FT3 #### [address] [address] #### FOL, B12 #### [address] [address] Triglyceride [Mass/Vol] 132 mg/dL Normal 0-150 [facility] ([place]) Comment on above: Result Comment: Trig lyceride Reference Interval: Less than 150 Normal 150-199 Borderline high risk 200-499 High risk 500 or higher Very high risk Performed By: #### G FR, LIPID, HFP, A1C, IBC, TSH, CBC, ANEU, FT4, FERR, ADIFF, CMP, FE, VIDH, FT3 #### [address] [address] #### FOL, B12 #### [address] [address] Laboratory - Chemistry and C hemistry - [...] 10-15-2023 TSH Qn 1.13 m[IU]/L Normal 0.36-3.74 [facility] ([place]) Comment on above: Performed By: #### G FR, LIPID, HFP, A1C, IBC, TSH, CBC, ANEU, FT4, FERR, ADIFF, CMP, FE, VIDH, FT3 #### [address] [address] #### FOL, B12 #### [place] [address] UDRUGon 10-15-2023 Amphetamine (u) Negative Normal Negative [facility] ([place]) Comment on above: Performed By: #### G FR, LIPID, HFP, A1C, IBC, TSH, CBC, ANEU, FT4, FERR, ADIFF, CMP, FE, VIDH, FT3 #### [address] [address] #### FOL, B12 #### [place] [address] Barbiturate (u) Negative Normal Negative [facility] ([place]) Comment on above: Performed By: #### G FR, LIPID, HFP, A1C, IBC, TSH, CBC, ANEU, FT4, FERR, ADIFF, CMP, FE, VIDH, FT3 #### [address] [address] #### FOL, B12 #### [place] [address] Benzodiazepine (u) Negative Normal Negative [facility] ([place]) Comment on above: Performed By: #### G FR, LIPID, HFP, A1C, IBC, TSH, CBC, ANEU, FT4, FERR, ADIFF, CMP, FE, VIDH, FT3 #### [address] [address] #### FOL, B12 #### [place] [address] Cannabinoid (u) Negative Normal Negative [facility] ([place]) Comment on above: Performed By: #### G FR, LIPID, HFP, A1C, IBC, TSH, CBC, ANEU, FT4, FERR, ADIFF, CMP, FE, VIDH, FT3 #### [address] [address] #### FOL, B12 #### [place] [address] Cocaine Ql (U) Negative Normal Negative [facility] ([place]) Comment on above: Performed By: #### G FR, LIPID, HFP, A1C, IBC, TSH, CBC, ANEU, FT4, FERR, ADIFF, CMP, FE, VIDH, FT3 #### [address] [address] #### FOL, B12 #### [place] [address] Methadone Ql (U) Negative Normal Negative [facility] ([place] Comment on above: Performed By: #### G FR, LIPID, HFP, A1C, IBC, TSH, CBC, ANEU, FT4, FERR, ADIFF, CMP, FE, VIDH, FT3 #### [address] [address] #### FOL, B12 #### [place] [address] Opiate (u) Negative Normal Negative [facility] ([place] Comment on above: Performed By: #### G FR, LIPID, HFP, A1C, IBC, TSH, CBC, ANEU, FT4, FERR, ADIFF, CMP, FE, VIDH, FT3 #### [address] [address] #### FOL, B12 #### [place] [address] PCP (u) Negative Normal Negative [facility] ([place] Comment on above: Performed By: #### G FR, LIPID, HFP, A1C, IBC, TSH, CBC, ANEU, FT4, FERR, ADIFF, CMP, FE, VIDH, FT3 #### [address] [address] #### FOL, B12 #### [place] [address] Urine Drugs screened: See Below Normal [facility] ([place]) Comment on above: Result Comment: This drug [...] FERR, ADIFF, CMP, FE, VIDH, FT3 #### [address] [address] #### FOL, B12 #### [place] [address] VIDHon 10-15-2023 Vit. D 25-Hydroxy 12.2 ng/mL Normal [facility] ([place]) Comment on above: Result Comment: Inte rpretive Values Based on Total 25(OH) Vitamin D: Deficient <20 ng/mL Insufficient 20 - <30 ng/mL Sufficient 30-100 ng/mL Performed By: #### G FR, LIPID, HFP, A1C, IBC, TSH, CBC, ANEU, FT4, FERR, ADIFF, CMP, FE, VIDH, FT3 #### [address] [address] #### FOL, B12 #### [address] [address] .Auto Diffon 03-31-2023 Basophil, Absolute 0.0 10 3/mcL Normal 0.0-0.2 [facility] ([place]) Comment on above: Performed By: #### G FR, LIPID, HFP, A1C, IBC, TSH, CBC, ANEU, FT4, FERR, ADIFF, CMP, FE, VIDH, FT3 #### [address] [address] #### FOL, B12 #### [address] [address] Basophils/100 WBC (Bld) 0.1 % Normal 0.0-2.5 [facility] ([place]) Comment on above: Performed By: #### G FR, LIPID, HFP, A1C, IBC, TSH, CBC, ANEU, FT4, FERR, ADIFF, CMP, FE, VIDH, FT3 #### [address] [address] #### FOL, B12 #### [address] [address] Eosinophil, Absolute 0.0 10 3/mcL Normal 0.0-0.4 [facility] ([place]) Comment on above: Performed By: #### G FR, LIPID, HFP, A1C, IBC, TSH, CBC, ANEU, FT4, FERR, ADIFF, CMP, FE, VIDH, FT3 #### [address] [address] #### FOL, B12 #### [address] [address] Eosinophils/100 WBC (Bld) 0.0 % Normal 0.0-7.0 [facility] ([place] Comment on above: Performed By: #### G FR, LIPID, HFP, A1C, IBC, TSH, CBC, ANEU, FT4, FERR, ADIFF, CMP, FE, VIDH, FT3 #### [address] [address] #### FOL, B12 #### [address] [address] Lymphocyte, Absolute 1.2 10 3/mcL Normal 0.8-3.9 [facility] ([place]) Comment on above: Performed By: #### G FR, LIPID, HFP, A1C, IBC, TSH, CBC, ANEU, FT4, FERR, ADIFF, CMP, FE, VIDH, FT3 #### [address] [address] #### FOL, B12 #### [address] [address] Lymphocytes/100 WBC (Bld) 11.4 % Normal 10.0-50.0 [facility] ([place] Comment on above: Performed By: #### G FR, LIPID, HFP, A1C, IBC, TSH, CBC, ANEU, FT4, FERR, ADIFF, CMP, FE, VIDH, FT3 #### [address] [address] #### FOL, B12 #### [address] [address] Monocyte, Absolute 0.8 10 3/mcL Normal 0.2-1.0 [facility] ([place] Comment on above: Performed By: #### G FR, LIPID, HFP, A1C, IBC, TSH, CBC, ANEU, FT4, FERR, ADIFF, CMP, FE, VIDH, FT3 #### [address] [address] #### FOL, B12 #### [address] [address] Monocytes/100 WBC (Bld) 7.6 % Normal 1.7-13.0 [facility] ([place] Comment on above: Performed By: #### G FR, LIPID, HFP, A1C, IBC, TSH, CBC, ANEU, FT4, FERR, ADIFF, CMP, FE, VIDH, FT3 #### [address] [address] #### FOL, B12 #### [address] [address] Neutrophils/100 WBC (Bld) 80.9 % High 37.0-80.0 [facility] ([place]) Comment on above: Performed By: #### G FR, LIPID, HFP, A1C, IBC, TSH, CBC, ANEU, FT4, FERR, ADIFF, CMP, FE, VIDH, FT3 #### [address] [address] #### FOL, B12 #### [address] [address] .NEUABSon 03-31-2023 Neutrophil, Absolute 8.8 10 3/mcL High 2.9-6.2 [facility] ([place]) Comment on above: Performed By: #### G FR, LIPID, HFP, A1C, IBC, TSH, CBC, ANEU, FT4, FERR, ADIFF, CMP, FE, VIDH, FT3 #### [address] [address] #### FOL, B12 #### [address] [address] CBCon 03-31-2023 Erythrocyte distribution width (RBC) [Ratio] 13.9 % Normal 11.5-14.5 [facility] ([place] Comment on above: Performed By: #### G FR, LIPID, HFP, A1C, IBC, TSH, CBC, ANEU, FT4, FERR, ADIFF, CMP, FE, VIDH, FT3 #### [address] [address] #### FOL, B12 #### [address] [address] Hematocrit (Bld) [Volume fraction] 33.1 % Low 37.0-47.0 [facility] ([place] Comment on above: Performed By: #### G FR, LIPID, HFP, A1C, IBC, TSH, CBC, ANEU, FT4, FERR, ADIFF, CMP, FE, VIDH, FT3 #### [address] [address] #### FOL, B12 #### [address] [address] Hgb 11.5 G/dL Low 12.0-16.0 [facility] ([place] Comment on above: Performed By: #### G FR, LIPID, HFP, A1C, IBC, TSH, CBC, ANEU, FT4, FERR, ADIFF, CMP, FE, VIDH, FT3 #### [address] [address] #### FOL, B12 #### [address] [address] MCH (RBC) [Entitic mass] 32.3 pg High 27.0-31.2 [facility] ([place] Comment on above: Performed By: #### G FR, LIPID, HFP, A1C, IBC, TSH, CBC, ANEU, FT4, FERR, ADIFF, CMP, FE, VIDH, FT3 #### [address] [address] #### FOL, B12 #### [address] [address] MCHC 34.7 G/dL Normal 33.0-37.0 [facility] ([place] Comment on above: Performed By: #### G FR, LIPID, HFP, A1C, IBC, TSH, CBC, ANEU, FT4, FERR, ADIFF, CMP, FE, VIDH, FT3 #### [address] [address] #### FOL, B12 #### [address] [address] MCV (RBC) [Entitic vol] 93.0 fL Normal 80.0-94.0 [facility] ([place] Comment on above: Performed By: #### G FR, LIPID, HFP, A1C, IBC, TSH, CBC, ANEU, FT4, FERR, ADIFF, CMP, FE, VIDH, FT3 #### [address] [address] #### FOL, B12 #### [address] [address] Platelet 155 10 3/mcL Normal 130-400 [facility] ([place] Comment on above: Performed By: #### G FR, LIPID, HFP, A1C, IBC, TSH, CBC, ANEU, FT4, FERR, ADIFF, CMP, FE, VIDH, FT3 #### [address] [address] #### FOL, B12 #### [address] [address] Platelet mean volume (Bld) [Entitic vol] 9.3 fL Normal 7.4-10.4 [facility] ([place] Comment on above: Performed By: #### G FR, LIPID, HFP, A1C, IBC, TSH, CBC, ANEU, FT4, FERR, ADIFF, CMP, FE, VIDH, FT3 #### [address] [address] #### FOL, B12 #### [address] [address] RBC 3.55 10 6/mcL Low 4.20-5.40 [facility] ([place] Comment on above: Performed By: #### G FR, LIPID, HFP, A1C, IBC, TSH, CBC, ANEU, FT4, FERR, ADIFF, CMP, FE, VIDH, FT3 #### [address] [address] #### FOL, B12 #### [address] [address] WBC 10.9 10 3/mcL High 4.6-10.8 [facility] ([place] Comment on above: Performed By: #### G FR, LIPID, HFP, A1C, IBC, TSH, CBC, ANEU, FT4, FERR, ADIFF, CMP, FE, VIDH, FT3 #### [address] [address] #### FOL, B12 #### [place] [address] LABORATORYOrdered By: Billie Ibarra on 03-31-2023 Basophil, [...] Ab RPR Ql (S) Non-Reactive Normal Non-Reactive [facility] ([place] Comment on above: Result Comment: The RPR [...] FERR, ADIFF, CMP, FE, VIDH, FT3 #### [address] [address] #### FOL, B12 #### [address] [address] .Auto Diffon 03-30-2023 Basophil, Absolute 0.0 10 3/mcL Normal 0.0-0.2 [facility] ([place] Comment on above: Performed By: #### G FR, LIPID, HFP, A1C, IBC, TSH, CBC, ANEU, FT4, FERR, ADIFF, CMP, FE, VIDH, FT3 #### [address] [address] #### FOL, B12 #### [address] [address] Basophils/100 WBC (Bld) 0.1 % Normal 0.0-2.5 [facility] ([place] Comment on above: Performed By: #### G FR, LIPID, HFP, A1C, IBC, TSH, CBC, ANEU, FT4, FERR, ADIFF, CMP, FE, VIDH, FT3 #### [address] [address] #### FOL, B12 #### [address] [address] Eosinophil, Absolute 0.0 10 3/mcL Normal 0.0-0.4 [facility] ([place] Comment on above: Performed By: #### G FR, LIPID, HFP, A1C, IBC, TSH, CBC, ANEU, FT4, FERR, ADIFF, CMP, FE, VIDH, FT3 #### [address] [address] #### FOL, B12 #### [address] [address] Eosinophils/100 WBC (Bld) 0.2 % Normal 0.0-7.0 [facility] ([place] Comment on above: Performed By: #### G FR, LIPID, HFP, A1C, IBC, TSH, CBC, ANEU, FT4, FERR, ADIFF, CMP, FE, VIDH, FT3 #### [address] [address] #### FOL, B12 #### [address] [address] Lymphocyte, Absolute 1.8 10 3/mcL Normal 0.8-3.9 [facility] ([place]) Comment on above: Performed By: #### G FR, LIPID, HFP, A1C, IBC, TSH, CBC, ANEU, FT4, FERR, ADIFF, CMP, FE, VIDH, FT3 #### [address] [address] #### FOL, B12 #### [address] [address] Lymphocytes/100 WBC (Bld) 16.8 % Normal 10.0-50.0 [facility] ([place] Comment on above: Performed By: #### G FR, LIPID, HFP, A1C, IBC, TSH, CBC, ANEU, FT4, FERR, ADIFF, CMP, FE, VIDH, FT3 #### [address] [address] #### FOL, B12 #### [address] [address] Monocyte, Absolute 0.8 10 3/mcL Normal 0.2-1.0 [facility] ([place] Comment on above: Performed By: #### G FR, LIPID, HFP, A1C, IBC, TSH, CBC, ANEU, FT4, FERR, ADIFF, CMP, FE, VIDH, FT3 #### [address] [address] #### FOL, B12 #### [address] [address] Monocytes/100 WBC (Bld) 7.2 % Normal 1.7-13.0 [facility] ([place] Comment on above: Performed By: #### G FR, LIPID, HFP, A1C, IBC, TSH, CBC, ANEU, FT4, FERR, ADIFF, CMP, FE, VIDH, FT3 #### [address] [address] #### FOL, B12 #### [address] [address] Neutrophils/100 WBC (Bld) 75.7 % Normal 37.0-80.0 [facility] ([place] Comment on above: Performed By: #### G FR, LIPID, HFP, A1C, IBC, TSH, CBC, ANEU, FT4, FERR, ADIFF, CMP, FE, VIDH, FT3 #### [address] [address] #### FOL, B12 #### [address] [address] .NEUABSon 03-30-2023 Neutrophil, Absolute 8.2 10 3/mcL High 2.9-6.2 [facility] ([place]) Comment on above: Performed By: #### G FR, LIPID, HFP, A1C, IBC, TSH, CBC, ANEU, FT4, FERR, ADIFF, CMP, FE, VIDH, FT3 #### [address] [address] #### FOL, B12 #### [address] [address] CBCon 03-30-2023 Erythrocyte distribution width (RBC) [Ratio] 13.8 % Normal 11.5-14.5 [facility] ([place] Comment on above: Performed By: #### G FR, LIPID, HFP, A1C, IBC, TSH, CBC, ANEU, FT4, FERR, ADIFF, CMP, FE, VIDH, FT3 #### [address] [address] #### FOL, B12 #### [address] [address] Hematocrit (Bld) [Volume fraction] 37.2 % Normal 37.0-47.0 [facility] ([place] Comment on above: Performed By: #### G FR, LIPID, HFP, A1C, IBC, TSH, CBC, ANEU, FT4, FERR, ADIFF, CMP, FE, VIDH, FT3 #### [address] [address] #### FOL, B12 #### [address] [address] Hgb 12.9 G/dL Normal 12.0-16.0 [facility] ([place] Comment on above: Performed By: #### G FR, LIPID, HFP, A1C, IBC, TSH, CBC, ANEU, FT4, FERR, ADIFF, CMP, FE, VIDH, FT3 #### [address] [address] #### FOL, B12 #### [address] [address] MCH (RBC) [Entitic mass] 32.2 pg High 27.0-31.2 [facility] ([place] Comment on above: Performed By: #### G FR, LIPID, HFP, A1C, IBC, TSH, CBC, ANEU, FT4, FERR, ADIFF, CMP, FE, VIDH, FT3 #### [address] [address] #### FOL, B12 #### [address] [address] MCHC 34.7 G/dL Normal 33.0-37.0 [facility] ([place] Comment on above: Performed By: #### G FR, LIPID, HFP, A1C, IBC, TSH, CBC, ANEU, FT4, FERR, ADIFF, CMP, FE, VIDH, FT3 #### [address] [address] #### FOL, B12 #### [place] [address] MCV (RBC) [Entitic vol] 92.8 fL Normal 80.0-94.0 [facility] ([place] Comment on above: Performed By: #### G FR, LIPID, HFP, A1C, IBC, TSH, CBC, ANEU, FT4, FERR, ADIFF, CMP, FE, VIDH, FT3 #### [place] [address] #### FOL, B12 #### [place] [address] Platelet 169 10 3/mcL Normal 130-400 [facility] ([place] Comment on above: Performed By: #### G FR, LIPID, HFP, A1C, IBC, TSH, CBC, ANEU, FT4, FERR, ADIFF, CMP, FE, VIDH, FT3 #### [place] [address] #### FOL, B12 #### [address] [address] Platelet mean volume (Bld) [Entitic vol] 9.7 fL Normal 7.4-10.4 [facility] ([place] Comment on above: Performed By: #### G FR, LIPID, HFP, A1C, IBC, TSH, CBC, ANEU, FT4, FERR, ADIFF, CMP, FE, VIDH, FT3 #### [place] [address] #### FOL, B12 #### [address] [address] RBC 4.01 10 6/mcL Low 4.20-5.40 [facility] ([place] Comment on above: Performed By: #### G FR, LIPID, HFP, A1C, IBC, TSH, CBC, ANEU, FT4, FERR, ADIFF, CMP, FE, VIDH, FT3 #### [address] [address] #### FOL, B12 #### [place] [address] WBC 10.8 10 3/mcL Normal 4.6-10.8 [facility] ([place] Comment on above: Performed By: #### G FR, LIPID, HFP, A1C, IBC, TSH, CBC, ANEU, FT4, FERR, ADIFF, CMP, FE, VIDH, FT3 #### [address] [address] #### FOL, B12 #### [place] [address] Gel ABOon 03-30-2023 ABO/Rh Interp Positive Invalid Interpretation Code [facility] ([place] Comment on above: Performed By: #### G FR, LIPID, HFP, A1C, IBC, TSH, CBC, ANEU, FT4, FERR, ADIFF, CMP, FE, VIDH, FT3 #### [address] [address] #### FOL, B12 #### [place] [address] Gel ABSon 03-30-2023 Antibody Screen Gel Negative Normal [facility] ([place]) Comment on above: Performed By: #### G FR, LIPID, HFP, A1C, IBC, TSH, CBC, ANEU, FT4, FERR, ADIFF, CMP, FE, VIDH, FT3 #### [address] [address] #### FOL, B12 #### [place] [address] LABORATORYOrdered By: Lilia Espinoza on 03-30-2023 ABO/Rh [...] Strep (PCR) Negative Normal Negative [facility] ([place]) Comment on above: Performed By: #### G BSPCR #### [address] [address] Group B Strep PCR Int Normal [facility] ([place]) Comment on above: Result Comment: Grou p [...] Below Performed By: #### G BSPCR #### [address] [address] RPRon 03-10-2023 Reagin Ab RPR Ql (S) Non-Reactive Normal Non-Reactive [facility] ([place]) Comment on above: Result Comment: The RPR [...] FERR, ADIFF, CMP, FE, VIDH, FT3 #### [address] [address] #### FOL, B12 #### [address] [address] .Auto Diffon 03-09-2023 Basophil, Absolute 0.0 10 3/mcL Normal 0.0-0.2 [facility] ([place]) Comment on above: Performed By: #### G FR, LIPID, HFP, A1C, IBC, TSH, CBC, ANEU, FT4, FERR, ADIFF, CMP, FE, VIDH, FT3 #### [address] [address] #### FOL, B12 #### [address] [address] Basophils/100 WBC (Bld) 0.2 % Normal 0.0-2.5 [facility] ([place]) Comment on above: Performed By: #### G FR, LIPID, HFP, A1C, IBC, TSH, CBC, ANEU, FT4, FERR, ADIFF, CMP, FE, VIDH, FT3 #### [address] [address] #### FOL, B12 #### [address] [address] Eosinophil, Absolute 0.0 10 3/mcL Normal 0.0-0.4 [facility] ([place]) Comment on above: Performed By: #### G FR, LIPID, HFP, A1C, IBC, TSH, CBC, ANEU, FT4, FERR, ADIFF, CMP, FE, VIDH, FT3 #### [address] [address] #### FOL, B12 #### [address] [address] Eosinophils/100 WBC (Bld) 0.3 % Normal 0.0-7.0 [facility] ([place]) Comment on above: Performed By: #### G FR, LIPID, HFP, A1C, IBC, TSH, CBC, ANEU, FT4, FERR, ADIFF, CMP, FE, VIDH, FT3 #### [address] [address] #### FOL, B12 #### [address] [address] Lymphocyte, Absolute 1.5 10 3/mcL Normal 0.8-3.9 [facility] ([place]) Comment on above: Performed By: #### G FR, LIPID, HFP, A1C, IBC, TSH, CBC, ANEU, FT4, FERR, ADIFF, CMP, FE, VIDH, FT3 #### [address] [address] #### FOL, B12 #### [address] [address] Lymphocytes/100 WBC (Bld) 15.8 % Normal 10.0-50.0 [facility] ([place]) Comment on above: Performed By: #### G FR, LIPID, HFP, A1C, IBC, TSH, CBC, ANEU, FT4, FERR, ADIFF, CMP, FE, VIDH, FT3 #### [address] [address] #### FOL, B12 #### [address] [address] Monocyte, Absolute 0.6 10 3/mcL Normal 0.2-1.0 [facility] ([place]) Comment on above: Performed By: #### G FR, LIPID, HFP, A1C, IBC, TSH, CBC, ANEU, FT4, FERR, ADIFF, CMP, FE, VIDH, FT3 #### [address] [address] #### FOL, B12 #### [address] [address] Monocytes/100 WBC (Bld) 6.6 % Normal 1.7-13.0 [facility] ([place]) Comment on above: Performed By: #### G FR, LIPID, HFP, A1C, IBC, TSH, CBC, ANEU, FT4, FERR, ADIFF, CMP, FE, VIDH, FT3 #### [address] [address] #### FOL, B12 #### [address] [address] Neutrophils/100 WBC (Bld) 77.1 % Normal 37.0-80.0 [facility] ([place]) Comment on above: Performed By: #### G FR, LIPID, HFP, A1C, IBC, TSH, CBC, ANEU, FT4, FERR, ADIFF, CMP, FE, VIDH, FT3 #### [address] [address] #### FOL, B12 #### [address] [address] .NEUABSon 03-09-2023 Neutrophil, Absolute 7.4 10 3/mcL High 2.9-6.2 [facility] ([place]) Comment on above: Performed By: #### G FR, LIPID, HFP, A1C, IBC, TSH, CBC, ANEU, FT4, FERR, ADIFF, CMP, FE, VIDH, FT3 #### [address] [address] #### FOL, B12 #### [address] [address] CBCon 03-09-2023 Erythrocyte distribution width (RBC) [Ratio] 13.9 % Normal 11.5-14.5 [facility] ([place]) Comment on above: Performed By: #### G FR, LIPID, HFP, A1C, IBC, TSH, CBC, ANEU, FT4, FERR, ADIFF, CMP, FE, VIDH, FT3 #### [address] [address] #### FOL, B12 #### [address] [address] Hematocrit (Bld) [Volume fraction] 36.3 % Low 37.0-47.0 [facility] ([place]) Comment on above: Performed By: #### G FR, LIPID, HFP, A1C, IBC, TSH, CBC, ANEU, FT4, FERR, ADIFF, CMP, FE, VIDH, FT3 #### [address] [address] #### FOL, B12 #### [address] [address] Hgb 12.6 G/dL Normal 12.0-16.0 [facility] ([place]) Comment on above: Performed By: #### G FR, LIPID, HFP, A1C, IBC, TSH, CBC, ANEU, FT4, FERR, ADIFF, CMP, FE, VIDH, FT3 #### [address] [address] #### FOL, B12 #### [address] [address] MCH (RBC) [Entitic mass] 32.4 pg High 27.0-31.2 [facility] ([place]) Comment on above: Performed By: #### G FR, LIPID, HFP, A1C, IBC, TSH, CBC, ANEU, FT4, FERR, ADIFF, CMP, FE, VIDH, FT3 #### [place] [address] #### FOL, B12 #### [place] [address] MCHC 34.7 G/dL Normal 33.0-37.0 [facility] ([place]) Comment on above: Performed By: #### G FR, LIPID, HFP, A1C, IBC, TSH, CBC, ANEU, FT4, FERR, ADIFF, CMP, FE, VIDH, FT3 #### [place] [address] #### FOL, B12 #### [address] [address] MCV (RBC) [Entitic vol] 93.3 fL Normal 80.0-94.0 [facility] ([place]) Comment on above: Performed By: #### G FR, LIPID, HFP, A1C, IBC, TSH, CBC, ANEU, FT4, FERR, ADIFF, CMP, FE, VIDH, FT3 #### [place] [address] #### FOL, B12 #### [address] [address] Platelet 171 10 3/mcL Normal 130-400 [facility] ([place]) Comment on above: Performed By: #### G FR, LIPID, HFP, A1C, IBC, TSH, CBC, ANEU, FT4, FERR, ADIFF, CMP, FE, VIDH, FT3 #### [place] [address] #### FOL, B12 #### [address] [address] Platelet mean volume (Bld) [Entitic vol] 8.5 fL Normal 7.4-10.4 [facility] ([place]) Comment on above: Performed By: #### G FR, LIPID, HFP, A1C, IBC, TSH, CBC, ANEU, FT4, FERR, ADIFF, CMP, FE, VIDH, FT3 #### [place] [address] #### FOL, B12 #### [address] [address] RBC 3.89 10 6/mcL Low 4.20-5.40 [facility] ([place]) Comment on above: Performed By: #### G FR, LIPID, HFP, A1C, IBC, TSH, CBC, ANEU, FT4, FERR, ADIFF, CMP, FE, VIDH, FT3 #### [place] [address] #### FOL, B12 #### [place] [address] WBC 9.7 10 3/mcL Normal 4.6-10.8 [facility] ([place]) Comment on above: Performed By: #### G FR, LIPID, HFP, A1C, IBC, TSH, CBC, ANEU, FT4, FERR, ADIFF, CMP, FE, VIDH, FT3 #### [place] [address] #### FOL, B12 #### [address] [address] LABORATORYOrdered By: Isabella Eng on 03-09-2023 Group [...] SS AMNIon 03-06-2023 Amnisure Negative Normal Negative [facility] ([place]) Comment on above: Performed By: #### G FR, LIPID, HFP, A1C, IBC, TSH, CBC, ANEU, FT4, FERR, ADIFF, CMP, FE, VIDH, FT3 #### [address] [address] #### FOL, B12 #### [address] [address] LABORATORYOrdered By: Lilia Espinoza on 03-06-2023 Gekhd-3-Ocaxrshcltmbs .placental Ql (Vag fld) Negative (03/06/23 5:57 [...] SS CNCOon 11-12-2022 CNCO Letter Text Normal [facility] Bacteria Ur Culton 3 Bacteria identified Cx Nom (U) CULTURE, URINE: <10,000 CFU/ml Normal Urogenital Den Normal [facility] Comment on above: Performed By: #### 6 30-4 #### [facility] CLIA [id number] [address] ED NOTEon 10-29-2022 ED NOTE HNO ID: [id number] Author: Martinez Crouch RN Service: ? Author Type: Registered Nurse Type: ED Notes Filed: 10/28/2022 10:37 PM Note Text: Bed: 26-ED Expected date: Expected time: Means of arrival: Comments: triage Normal [facility] ED PROV NOTEon 10-29-2022 ED PROV NOTE HNO ID: [id number] Author: Danitza Reis DO Service: Emergency Medicine [...] CHRISTINA M 10/29/22 0323 Normal [facility] ED PROV NOTE HNO ID: [id number] Author: Danitza Reis DO Service: Emergency Medicine [...] was dehydrated. She follows with OB at [facility] in [place]. complicated by hyperemesis gravidarum and bleeding in [...] (more content not included)... Normal [facility] EKGon 10-29-2022 Electrocardiogram Ventricular Rate : 129 BPM Atrial Rate : 129 BPM P-R Interval : 130 ms QRS Duration : 70 ms Q-T Interval : 300 ms QTC Calculation(Bazett) : 439 ms Calculated P [place] : 31 degrees Calculated R [place] : 66 degrees Calculated T [place] : -[address] & T WAVE ABNORMALITY, CONSIDER INFERIOR ISCHEMIA ST & T WAVE ABNORMALITY, CONSIDER ANTEROLATERAL ISCHEMIA ABNORMAL ECG WHEN COMPARED WITH ECG OF 31-MAY-2022 13:06, VENT. RATE HAS INCREASED BY 58 BPM T WAVE INVERSION NOW EVIDENT IN INFERIOR LEADS INVERTED T WAVES HAVE REPLACED NONSPECIFIC T WAVE ABNORMALITY IN ANTEROLATERAL LEADS Confirmed by DO REIS CHRISTINA ([id number]) on 10/29/2022 1:44:37 AM NAME : LUZ OLIVEIRA PID : [id number] : 2000 Gender : Female Race : [...] ANTEROLATERAL LEADS Confirmed by DO REIS CHRISTINA ([id number]) on 10/29/2022 1:44:37 AM Test Reason : Location : 4 : [facility] ED26 Overread By : DO REIS CHRISTINA Edited By : DO REIS CHRISTINA Referred By : , Acquired by : KASHIF JOHNSON Normal [facility] Urinalysis complete panel (U )on 10-29-2022 Bacteria LM.HPF (Urine sed) [#/Area] Few Abnormal None Seen [facility] Comment on above: Order Comment: Speci men Type: URINE SPECIMENOrdering Facility: [facility] Address: [address] [place] [address] Performed By: #### 2 4356-8 ####[facility] LABORATORYCLIA [id number] [place] [address] [place] Bilirubin Ql (U) Negative Normal Negative [facility] Comment on above: Order Comment: Speci men Type: URINE SPECIMENOrdering Facility: [facility] Address: [address] [place] [address] Performed By: #### 2 4356-8 ####[facility] LABORATORYCLIA [id number] [address] [place] Clarity (Unsp spec) Turbid Abnormal Clear [facility] Comment on above: Order Comment: Speci men Type: URINE SPECIMENOrdering Facility: [facility] Address: [address] [place] [address] Performed By: #### 2 4356-8 ####[facility] LABORATORYCLIA [id number] [address] [place] Color (U) Yellow Normal yellow [facility] Comment on above: Order Comment: Speci men Type: URINE SPECIMENOrdering Facility: [facility] Address: [address] [place] [address] Performed By: #### 2 4356-8 ####[facility] LABORATORYCLIA [id number] [address] [place] Epithelial cells LM.HPF (Urine sed) [#/Area] Few Normal [facility] Comment on above: Order Comment: Speci men Type: URINE SPECIMENOrdering Facility: [facility] Address: [address] [place] [address] Performed By: #### 2 4356-8 ####[facility] LABORATORYCLIA [id number] [address] [place] Glucose Test strip (U) [Mass/Vol] Negative Normal Trace, Negative [facility] Comment on above: Order Comment: Speci men Type: URINE SPECIMENOrdering Facility: [facility] Address: [address] [place] [address] Performed By: #### 2 4356-8 ####[facility] LABORATORYCLIA [id number] [address] STATES [facility] Hemoglobin Ql (U) 1+ Abnormal Negative, Trace [facility] Comment on above: Order Comment: Speci men Type: URINE SPECIMENOrdering Facility: [facility] Address: [address] [place] [address] Performed By: #### 2 4356-8 ####[facility] LABORATORYCLIA [id number] [address] Ketones Ql (U) 4+ Abnormal Negative, Trace [facility] Comment on above: Order Comment: Speci men Type: URINE SPECIMENOrdering Facility: [facility] Address: [address] [place] [address] Performed By: #### 2 4356-8 ####[facility] LABORATORYCLIA [id number] [address] [place] Leukocyte esterase Test strip Ql (U) 25 Misti/mL Normal Negative, 25 Misti/mL [facility] Comment on above: Order Comment: Speci men Type: URINE SPECIMENOrdering Facility: [facility] Address: [address] [place] [address] Performed By: #### 2 4356-8 ####[facility] LABORATORYCLIA [id number] [address] [place] Nitrite Ql (U) Negative Normal Negative [facility] Comment on above: Order Comment: Speci men Type: URINE SPECIMENOrdering Facility: [facility] Address: [address] [place] [address] Performed By: #### 2 4356-8 ####[facility] LABORATORYCLIA [id number] [address] [place] pH (U) 6.0 [pH] Normal 5.0-8.0 [facility] Comment on above: Order Comment: Speci men Type: URINE SPECIMENOrdering Facility: [facility] Address: [address] [place] [address] Performed By: #### 2 4356-8 ####[facility] LABORATORYCLIA [id number] [address] Protein (U) [Mass/Vol] 1+ Abnormal Trace, Negative [facility] Comment on above: Order Comment: Speci men Type: URINE SPECIMENOrdering Facility: [facility] Address: [address] [place] [address] Performed By: #### 2 4356-8 ####[facility] LABORATORYCLIA [id number] [address] RBC LM.HPF (Urine sed) [#/Area] 6-10 /HPF Abnormal 0-3 /HPF [facility] Comment on above: Order Comment: Speci men Type: URINE SPECIMENOrdering Facility: [facility] Address: [address] [place] [address] Performed By: #### 2 4356-8 ####[facility] LABORATORYCLIA [id number] [address] STATES [facility] Specific gravity (U) [Rel density] 1.029 Normal 1.005-1.030 [facility] Comment on above: Order Comment: Speci men Type: URINE SPECIMENOrdering Facility: [facility] Address: [address] [place] [address] Performed By: #### 2 4356-8 ####[facility] LABORATORYCLIA [id number] [address] Urobilinogen Ql (U) Normal Normal Negative [facility] Comment on above: Order Comment: Speci men Type: URINE SPECIMENOrdering Facility: [facility] Address: [address] [place] [address] Performed By: #### 2 4356-8 ####[facility] LABORATORYCLIA [id number] [address] [place] WBC LM.HPF (Urine sed) [#/Area] 0-5 /HPF Normal 0-5 /HPF [facility] Comment on above: Order Comment: Speci men Type: URINE SPECIMENOrdering Facility: [facility] Address: [address] [place] [address] Performed By: #### 2 4356-8 ####[facility] LABORATORYCLIA [id number] [place] [address] [place] Basic metabolic 2000 panelon 10-28-2022 Anion gap [Moles/Vol] 15 mmol/L Normal 9-18 [facility] Comment on above: Order Comment: Speci men Type: BLOOD SPECIMENOrdering Facility: [facility] Address: [address] [place] [address] Performed By: #### 2 4321-2, ####[facility] LABORATORYCLIA [id number] [place] [address] [place] Calcium [Mass/Vol] 10.1 mg/dL Normal 8.5-10.2 [facility] Comment on above: Order Comment: Speci men Type: BLOOD SPECIMENOrdering Facility: [facility] Address: [address] [place] [address] Performed By: #### 2 432-2, ####[facility] LABORATORYCLIA [id number] [place] [address] [place] Chloride [Moles/Vol] 102 mmol/L Normal 97-105 [facility] Comment on above: Order Comment: Speci men Type: BLOOD SPECIMENOrdering Facility: [facility] Address: [address] [place] [address] Performed By: #### 2 4321-2, ####[facility] LABORATORYCLIA [id number] [place] [address] [place] CO2 [Moles/Vol] 22 mmol/L Normal 22-30 [facility] Comment on above: Order Comment: Speci men Type: BLOOD SPECIMENOrdering Facility: [facility] Address: [address] [place] [address] Performed By: #### 2 4321-2, ####[facility] LABORATORYCLIA [id number] [place] [address] [place] [facility] Creatinine [Mass/Vol] 0.61 mg/dL Normal 0.58-0.96 [facility] Comment on above: Order Comment: Eloise lopez Type: BLOOD SPECIMENOrdering Facility: [facility] Address: [address] [place] [address] Performed By: #### 2 [address]-12, ####[facility]PITALIA [id number] [place] [address] [facility] ESTIMATED GLOMERULAR FILTRATION RATE 129 mL/min/1.73m??? Normal >=60 [facility] Comment on above: Order Comment: Eloise lopez Type: BLOOD SPECIMENOrdering Facility: [facility] Address: [address] [place] [address] Result Comment: Tierra mated Glomerular Filtration Rate [...] reflect actual GFR. Performed By: #### 2 ####[facility]OSPITALIA [id number] [place] [address] [place] [facility] Glucose [Mass/Vol] 86 mg/dL Normal 74-99 [facility] Comment on above: Order Comment: Eloise lopez Type: BLOOD SPECIMENOrdering Facility: [facility] Address: [address] [place] [address] Result Comment: The [place] [employer] (ADA) provides guidance for cutoff [...] Standards of Medical Care in Diabetes 2016, [place] [employer]. Diabetes Care. 2016.39(Suppl 1). Performed By: #### 2 4320-2, ####[facility] LABORATORYCLIA [id number] [place] [address] [place] Potassium [Moles/Vol] 3.2 mmol/L Low 3.7-5.1 [facility] Comment on above: Order Comment: Mariposai jessica Type: BLOOD SPECIMENOrdering Facility: [facility] Address: [address] [place] [address] Performed By: #### 2 4320-11, ####[facility] LABORATORYCLIA [id number] [address] STATES OF [facility] Sodium [Moles/Vol] 139 mmol/L Normal 136-144 [facility] Comment on above: Order Comment: Eloise lopez Type: BLOOD SPECIMENOrdering Facility: [facility] Address: [address] [place] [address] Performed By: #### 2 4320-11, ####[facility] LABORATORYCLIA [id number] [address] STATES [facility] Urea nitrogen [Mass/Vol] 5 mg/dL Low 7-21 [facility] Comment on above: Order Comment: Mariposai men Type: BLOOD SPECIMENOrdering Facility: [facility] Address: [address] [place] [address] Performed By: #### 2 4320-11, ####[facility] LABORATORYCLIA [id number] [address] [place] CBC W Auto Differential pane l (Bld)on 10-28-2022 Basophils (Bld) [#/Vol] 10*3/uL Normal <0.11 [facility] Comment on above: Order Comment: Mariposai men Type: BLOOD SPECIMENOrdering Facility: [facility] Address: [address] [place] [address] Performed By: #### 5 7021-8 ####[facility]ORATORYCLIA [id number] [address] Basophils/100 WBC (Bld) 0.1 % Normal [facility] Comment on above: Order Comment: Speci men Type: BLOOD SPECIMENOrdering Facility: [facility] Address: [address] [place] [address] Performed By: #### 5 7021-8 ####[facility] LABORATORYCLIA [id number] [address] Differential cell count method Nom (Bld) Auto Normal [facility] Comment on above: Order Comment: Speci men Type: BLOOD SPECIMENOrdering Facility: [facility] Address: [address] [place] [address] Performed By: #### 5 7021-8 ####[facility] LABORATORYCLIA [id number] [address] [place] Eosinophils (Bld) [#/Vol] 10*3/uL Normal <0.46 [facility] Comment on above: Order Comment: Speci men Type: BLOOD SPECIMENOrdering Facility: [facility] Address: [address] [place] [address] Performed By: #### 5 7021-8 ####[facility] LABORATORYCLIA [id number] [address] Eosinophils/100 WBC (Bld) 0.1 % Normal [facility] Comment on above: Order Comment: Speci men Type: BLOOD SPECIMENOrdering Facility: [facility] Address: [address] [place] [address] Performed By: #### 5 7021-8 ####[facility] LABORATORYCLIA [id number] [address] Erythrocyte distribution width (RBC) [Ratio] 13.8 % Normal 11.5-15.0 [facility] Comment on above: Order Comment: Speci men Type: BLOOD SPECIMENOrdering Facility: [facility] Address: [address] [place] [address] Performed By: #### 5 7021-8 ####[facility] LABORATORYCLIA [id number] [address] OF [facility] Hematocrit (Bld) [Volume fraction] 38.2 % Normal 36.0-46.0 [facility] Comment on above: Order Comment: Speci men Type: BLOOD SPECIMENOrdering Facility: [facility] Address: [address] [place] [address] Performed By: #### 5 7021-8 ####[facility] LABORATORYCLIA [id number] [address] [place] Hemoglobin (Bld) [Mass/Vol] 13.5 g/dL Normal 11.5-15.5 [facility] Comment on above: Order Comment: Speci men Type: BLOOD SPECIMENOrdering Facility: [facility] Address: [address] [place] [address] Performed By: #### 5 7021-8 ####[facility] LABORATORYCLIA [id number] [address] [place] Immature granulocytes (Bld) [#/Vol] 0.04 10*3/uL Normal <0.10 [facility] Comment on above: Order Comment: Speci men Type: BLOOD SPECIMENOrdering Facility: [facility] Address: [address] [place] [address] Performed By: #### 5 7021-8 ####[facility] LABORATORYCLIA [id number] [address] OF [place] Immature granulocytes/100 WBC (Bld) 0.5 % Normal [facility] Comment on above: Order Comment: Speci men Type: BLOOD SPECIMENOrdering Facility: [facility] Address: [address] [place] [address] Performed By: #### 5 7021-8 ####[facility] LABORATORYCLIA [id number] [address] [place] Lymphocytes (Bld) [#/Vol] 1.53 10*3/uL Normal 1.00-4.00 [facility] Comment on above: Order Comment: Speci men Type: BLOOD SPECIMENOrdering Facility: [facility] Address: [address] [place] [address] Performed By: #### 5 7021-8 ####[facility] LABORATORYCLIA [id number] [address] Lymphocytes/100 WBC (Bld) 18.8 % Normal [facility] Comment on above: Order Comment: Speci men Type: BLOOD SPECIMENOrdering Facility: [facility] Address: [address] [place] [address] Performed By: #### 5 7021-8 ####[facility] LABORATORYCLIA [id number] [address] STATES OF [facility] MCH (RBC) [Entitic mass] 31.6 pg Normal 26.0-34.0 [facility] Comment on above: Order Comment: Speci men Type: BLOOD SPECIMENOrdering Facility: [facility] Address: [address] [place] [address] Performed By: #### 5 7021-8 ####[facility] LABORATORYCLIA [id number] [address] STATES [facility] MCHC (RBC) [Mass/Vol] 35.3 g/dL Normal 30.5-36.0 [facility] Comment on above: Order Comment: Speci men Type: BLOOD SPECIMENOrdering Facility: [facility] Address: [address] [place] [address] Performed By: #### 5 7021-8 ####[facility] LABORATORYCLIA [id number] [address] [place] MCV (RBC) [Entitic vol] 89.5 fL Normal 80.0-100.0 [facility] Comment on above: Order Comment: Speci men Type: BLOOD SPECIMENOrdering Facility: [facility] Address: [address] [place] [address] Performed By: #### 5 7021-8 ####[facility]ORATORYCLIA [id number] [address] [place] Monocytes (Bld) [#/Vol] 0.51 10*3/uL Normal <0.87 [facility] Comment on above: Order Comment: Speci men Type: BLOOD SPECIMENOrdering Facility: [facility] Address: [address] [address] Performed By: #### 5 7021-8 ####[facility] LABORATORYCLIA [id number] [address] Monocytes/100 WBC (Bld) 6.3 % Normal [facility] Comment on above: Order Comment: Speci men Type: BLOOD SPECIMENOrdering Facility: [facility] Address: [address] [place] [address] Performed By: #### 5 7021-8 ####[facility] LABORATORYCLIA [id number] [address] [place] Neutrophils (Bld) [#/Vol] 6.06 10*3/uL Normal 1.45-7.50 [facility] Comment on above: Order Comment: Speci men Type: BLOOD SPECIMENOrdering Facility: [facility] Address: [address] [place] [address] Performed By: #### 5 7021-8 ####[facility]ATORYCLIA [id number] [address] Neutrophils/100 WBC (Bld) 74.2 % Normal [facility] Comment on above: Order Comment: Speci men Type: BLOOD SPECIMENOrdering Facility: [facility] Address: [address] [place] [address] Performed By: #### 5 7021-8 ####[facility]ATORYCLIA [id number] [address] STATES [place] Nucleated RBC (Bld) [#/Vol] 10*3/uL Normal <0.01 [facility] Comment on above: Order Comment: Speci men Type: BLOOD SPECIMENOrdering Facility: [facility] Address: [address] [place], [place] [address] Performed By: #### 5 7021-8 ####[facility] LABORATORYCLIA [id number] [address] STATES [place] Nucleated RBC/100 WBC (Bld) [Ratio] 0.0 /100 WBC Normal [facility] Comment on above: Order Comment: Speci men Type: BLOOD SPECIMENOrdering Facility: [facility] Address: [address] [place] [address] Performed By: #### 5 7021-8 ####[facility]ORATORYCLIA [id number] [address] STATES [place] Platelet mean volume (Bld) [Entitic vol] 10.2 fL Normal 9.0-12.7 [facility] Comment on above: Order Comment: Speci men Type: BLOOD SPECIMENOrdering Facility: [facility] Address: [address] [place] [address] Performed By: #### 5 7021-8 ####[facility] LABORATORYCLIA [id number] [address] STATES [place] Platelets (Bld) [#/Vol] 191 10*3/uL Normal 150-400 [facility] Comment on above: Order Comment: Speci men Type: BLOOD SPECIMENOrdering Facility: [facility] Address: [address] [place] [address] Performed By: #### 5 7021-8 ####[facility] LABORATORYCLIA [id number] [place] [address] [place] RBC (Bld) [#/Vol] 4.27 10*6/uL Normal 3.90-5.20 [facility] Comment on above: Order Comment: Speci men Type: BLOOD SPECIMENOrdering Facility: [facility] Address: [address] [place] [address] Performed By: #### 5 7021-8 ####[facility] LABORATORYCLIA [id number] [address] STATES [place] WBC (Bld) [#/Vol] 8.16 10*3/uL Normal 3.70-11.00 [facility] Comment on above: Order Comment: Speci men Type: BLOOD SPECIMENOrdering Facility: [facility] Address: [address] [place] [address] Performed By: #### 5 7021-8 ####[facility] LABORATORYCLIA [id number] [place] [address] [place] ED Triage Noteon 10-28-2022 ED Triage Note HNO ID: [id number] Author: Dax Stevenson APRN.CNP Service: Emergency Medicine [...] CBC CMP EKG Urinalysis SIGNATURE: Dax Stevenson APRN.LOSS PREVENTION SUPERVISOR Normal [facility] Magnesium SerPl-mCncon 10-28 Magnesium [Mass/Vol] 1.8 mg/dL Normal 1.7-2.3 [facility] Comment on above: Order Comment: Speci men Type: BLOOD SPECIMENOrdering Facility: [facility] Address: [address] [facility] [place] [address] Performed By: #### 2 4321-2, 83867-0 ####[facility] LABORATORYCLIA [id number] [address] STATES [place] URINE OB DIP B/Oon 3 Glucose Ql (U) Negative Neg mg/dL [facility] Protein.monoclonal (U) [Mass/Vol] TRACE Abnormal Neg mg/dL [facility] CNCOon 08-21-2022 CNCO Letter Text Normal [facility] Bacteria Ur Culton 2 Bacteria identified Cx Nom (U) ORGANISM ID: 1 50,000-<100,000 CFU/ml Normal urogenital den Normal [facility] Comment on above: Performed By: #### 7 3752-8, 52787-0, 94925-7 #### [facility] CLIA [id number] [facility] [place] C. trachomatis+N. gonorrhoea e DNA CHICHO+probe Ql (Unsp spec)on 08-19-2022 C. trachomatis DNA CHICHO+probe Ql (Unsp spec) Negative Normal Negative for Chlamydia trachomatis by amplificaton [facility] Comment on above: Order Comment: Speci men Type: SWAB [facility] Address: [address] [place] [address] Performed By: #### 3 6902-5 #### [facility] CLIA [id number] [address] [place] [address] [place] N. gonorrhoeae DNA CHICHO+probe Ql (Unsp spec) Negative Normal Negative for Neisseria gonorrhoeae by amplification [facility] Comment on above: Order Comment: Speci men Type: SWAB [facility] Address: [address] [place] [address] Performed By: #### 3 6902-5 #### [facility] CLIA [id number] [address] [place] [address] [place] CBC panel Auto (Bld)on 08-19 Erythrocyte distribution width (RBC) [Ratio] 12.4 % Normal 11.5-15.[address] [facility] Comment on above: Order Comment: Speci men Type: BLOOD SPECIMEN [facility] Address: [address] [place] [address] Performed By: #### 7 3752-8, 87168-2, 48065-7 #### [facility] CLIA [id number] [address] [place] [address] [place] Hematocrit (Bld) [Volume fraction] 40.5 % Normal 36.0-46.[address] [facility] Comment on above: Order Comment: Speci men Type: BLOOD SPECIMEN [facility] Address: [address] Performed By: #### 7 3752-8, 93849-8, 49089-3 #### [facility] CLIA [id number] [address] [place] [address] [place] Hemoglobin (Bld) [Mass/Vol] 13.6 g/dL Normal 11.5-15.[address] [facility] Comment on above: Order Comment: Speci men Type: BLOOD SPECIMEN [facility] Address: [address] Performed By: #### 7 3752-8, 74446-4, 60170-8 #### [facility] CLIA [id number] [address] [place] [address] [place] MCH (RBC) [Entitic mass] 30.8 pg Normal 26.0-34.[address] [facility] Comment on above: Order Comment: Speci men Type: BLOOD SPECIMEN [facility] Address: [address] [place] [address] Performed By: #### 7 3752-8, 19732-6, 98058-9 #### [facility] CLIA [id number] [address] [place] [address] [place] MCHC (RBC) [Mass/Vol] 33.6 g/dL Normal 30.5-36.0 [facility] Comment on above: Order Comment: Speci men Type: BLOOD SPECIMEN [facility] Address: [address] Performed By: #### 7 3752-8, 25743-1, 27688-6 #### [facility] CLIA [id number] [address] [place] [address] [place] MCV (RBC) [Entitic vol] 91.8 fL Normal 80.0-100.[address] [facility] Comment on above: Order Comment: Speci men Type: BLOOD SPECIMEN [facility] Address: [address] Performed By: #### 7 3752-8, 93094-6, 24851-7 #### [facility] CLIA [id number] [address] [place] [address] [place] Nucleated RBC (Bld) [#/Vol] 10*3/uL Normal <0.[address] [facility] Comment on above: Order Comment: Speci men Type: BLOOD SPECIMEN [facility] Address: [address] Performed By: #### 7 3752-8, 64473-1, 66817-5 #### [facility] CLIA [id number] [address] [place] [address] [place] Platelet mean volume (Bld) [Entitic vol] 10.5 fL Normal 9.0-12.[address] [facility] Comment on above: Order Comment: Speci men Type: BLOOD SPECIMEN [facility] Address: [address] Performed By: #### 7 3752-8, 78716-4, 53409-2 #### [facility] CLIA [id number] [address] [place] [address] [place] Platelets (Bld) [#/Vol] 247 10*3/uL Normal 150-[address] [facility] Comment on above: Order Comment: Speci men Type: BLOOD SPECIMEN [facility] Address: [address] Performed By: #### 7 3752-8, 10946-1, 50169-1 #### [facility] CLIA [id number] [address] [place] [address] [place] RBC (Bld) [#/Vol] 4.41 10*6/uL Normal 3.90-5.20 [facility] Comment on above: Order Comment: Speci men Type: BLOOD SPECIMEN [facility] Address: [place] [address] Performed By: #### 7 3752-8, 70200-1, 00067-2 #### [facility] CLIA [id number] [address] [place] [address] OF [facility] WBC (Bld) [#/Vol] 7.20 10*3/uL Normal 3.70-11.00 [facility] Comment on above: Order Comment: Speci men Type: BLOOD SPECIMEN [facility] Address: [place] [place] [address] Performed By: #### 7 3752-8, 74114-4, 65987-1 #### [facility] CLIA [id number] [address] [place] [address] STATES OF [facility] Erythrocyte distribution width (RBC) [Ratio] 12.4 % 11.5 - 15.0 % [facility] Hematocrit (Bld) [Volume fraction] 40.5 % 36.0 - 46.0 % [facility] Hemoglobin (Bld) [Mass/Vol] 13.6 g/dL 11.5 - 15.5 g/dL [facility] MCH (RBC) [Entitic mass] 30.8 pg 26.0 - 34.0 pg [facility] MCHC (RBC) [Mass/Vol] 33.6 g/dL 30.5 - 36.0 g/dL [facility] MCV (RBC) [Entitic vol] 91.8 fL 80.0 - 100.0 fL [facility] Nucleated RBC (Bld) [#/Vol] <0.01 k/uL [facility] Platelet mean volume (Bld) [Entitic vol] 10.5 fL 9.0 - 12.7 fL [facility] Platelets (Bld) [#/Vol] 247 10*3/uL 150 - 400 k/uL [facility] RBC (Bld) [#/Vol] 4.41 10*6/uL 3.90 - 5.2 0 m/uL [facility] WBC (Bld) [#/Vol] 7.20 10*3/uL 3.70 - 11. 00 k/uL [facility] HBV surface Ab IA Ql (S)on 1 10-19-2021 HBV surface Ag Ql (S) Negative Normal Negative [facility] Comment on above: Order Comment: Speci men Type: BLOOD SPECIMEN [facility] Address: [address] [place] [address] Performed By: #### 7 3752-8, 95591-6, 68657-4 #### [facility] CLIA [id number] [address] [place] [address] [place] HCV Ab Ser Qlon 08-19-2022 HCV Ab Ql (S) Negative Normal Negative [facility] Comment on above: Order Comment: Speci men Type: BLOOD SPECIMEN [facility] Address: [address] [place] [address] Result Comment: The result suggests no evidence of active infection with Hepatitis C virus. Should recent infection be suspected, repeat testing may be considered 4-6 weeks after this draw. Performed By: #### 7 3752-8, 51920-2, 49394-3 #### [facility] CLIA [id number] [address] [place] [address] [facility] [place] HIV 1+2 Ab IA Qlon 2 HIV 1 and 2 Ab IA.rapid Nom Normal [facility] Comment on above: Order Comment: Speci men Type: BLOOD SPECIMEN [facility] Address: [address] [place] [address] Result Comment: Test not indicated. Performed By: #### 7 3752-8, 41449-8, 03057-8 #### [facility] CLIA [id number] [address] [place] [address] [place] HIV 1+2 Ab+HIV1 p24 Ag IA Ql Non-Reactive Normal Nonreactive [facility] Comment on above: Order Comment: Speci men Type: BLOOD SPECIMEN [facility] Address: [address] [place] [address] Performed By: #### 7 3752-8, 73225-6, 68776-9 #### [facility] CLIA [id number] [address] [place] [address] [place] HIVINT Normal [facility] Comment on above: Order Comment: Speci men Type: BLOOD SPECIMEN [facility] Address: [address] [place] [address] Result Comment: No e vidence of HIV-1 or HIV-2 infection. Should recent infection be suspected, repeat testing may be considered 2-3 weeks after this draw. [place] Rev. Code 3701.243(E): This information has been [...] or diagnoses. Performed By: #### 7 3752-8, 93401-9, 80421-7 #### [facility] CLIA [id number] [address] [place] [address] [place] No Panel Informationon 08-19 [facility] PAP FLUID CERVICAL SCREENING on 08-19-2022 CASE REPORT Normal [facility] Comment on above: Order Comment: Speci men Type: FLUID SPECIMEN [facility] Address: [address] [place] [address] Result Comment: Gyne cologic Cytology Report Case: [id number] Authorizing Provider: Braulio Hollingsworth MD Collected: 08/19/2022 02:46 PM Ordering Location: Obstetrics/Gynecology Received: 08/20/2022 12:38 PM First Screen: Shelby Umaña, CT, ASCP Rescreen: Wandy Fraser, CT, ASCP Specimen: Pap, Key Punch Operator, Screening, CERVICAL SCREENING FLUID Performed By: #### L [id number] #### [facility] CLIA [id number] [address] [place] [address] [place] CLINICAL HISTORY ABNORMAL PAP[LGSIL i n 2020 in [place] Normal [facility] Comment on above: Order Comment: Speci men Type: FLUID SPECIMEN [facility] Address: [address] [place], [place] [address] Performed By: #### L [id number] #### [facility] CLIA [id number] [address] [place] [address] [place] CYTOLOGY INTERPRETATION PAP Normal [facility] Comment on above: Order Comment: Speci men Type: FLUID SPECIMEN [facility] Address: [address] [place] [address] Result Comment: Nega tive for Intraepithelial lesion or malignancy. Performed By: #### L [id number] #### [facility] CLIA [id number] [address] [place] [address] OF [facility] FINAL DIAGNOSIS Normal [facility] Comment on above: Order Comment: Speci men Type: FLUID SPECIMEN [facility] Address: [address] [place], [place] [address] Result Comment: A - CERVICAL SCREENING FLUID Satisfactory for interpretation, Excess blood Negative for Intraepithelial lesion or malignancy. Performed By: #### L [id number] #### [facility] CLIA [id number] [address] [place] [address] [place] FINAL PERFORMING LAB Normal [facility] Comment on above: Order Comment: Speci men Type: FLUID SPECIMEN [facility] Address: [address] [place], [place] [address] Result Comment: Tech nical component, regional sales leader screening performed at [facility], [facility] [place] [id number] CLIA# [id number] Diagnostic interpretation performed at [facility], [address] [place] [address] CLIA# [id number] Superintendent Measurement: Adam Farah M.D. Performed By: #### L [id number] #### [facility] CLIA [id number] [address] [place] [address] [place] GROSS DESCRIPTION Normal [facility] Comment on above: Order Comment: Speci men Type: FLUID SPECIMEN [facility] Address: [address] [place] [address] Result Comment: A. C ERVICAL SCREENING FLUID Glacial Acetic Acid added. Performed By: #### L [id number] #### [facility] CLIA [id number] [address] [place] [address] [place] HPV REQUESTED? Yes, Reflex HPV for ASCUS Normal [facility] Comment on above: Order Comment: Speci men Type: FLUID SPECIMEN [facility] Address: [address] [place] [address] Performed By: #### L [id number] #### [facility] CLIA [id number] [address] [place] [address] [place] LMP 06/21/2022() Normal [facility] Comment on above: Order Comment: Speci men Type: FLUID SPECIMEN [facility] Address: [address] [place] [address] Performed By: #### L [id number] #### [facility] CLIA [id number] [address] [place] [address] [place] PAP DISCLAIMER COMMENT The Pap Smear is a screening test for cervical cancer. False negative results occur with all screening tests, emphasizing the need for rescreening at recommended intervals, and clinical correlation. Normal [facility] Comment on above: Order Comment: Speci men Type: FLUID SPECIMEN [facility] Address: [address] [address] Performed By: #### L [id number] #### [facility] CLIA [id number] [address] [place] [address] [place] PAP SUPERVISOR PIPELINE COMMENT This specimen has been analyzed by the ThinPrep Imaging System, an automated imaging and review system, which assists the laboratory in evaluating cells on ThinPrep Pap tests. Following automated imaging, selected francis from every slide are reviewed by a regional sales leader. Normal [facility] Comment on above: Order Comment: Speci men Type: FLUID SPECIMEN [facility] Address: [address] [place] [address] Performed By: #### L [id number] #### [facility] CLIA [id number] [address] [place] [address] OF [place] RUBELLA IGG ABon 08-19-2022 RUBELLA IGG AB, QUAL Positive Normal Positive [facility] Comment on above: Order Comment: Eloise lopez Type: BLOOD SPECIMEN [facility] Address: [address] [place] [address] Result Comment: The result suggests recent or past exposure to Rubella virus or history of Rubella vaccination. Positive result may also be seen due to presence of passively-transferred antibodies. Please correlate with patient's history. Performed By: #### 7 3752-8, 87088-1, 01217-7 #### [facility] CLIA [id number] [address] [place] Reagin and Treponema pallidu m IgG and IgM [Interp]on 08-19-2022 SYPHILIS INTERPRETATION Cannot exclude recent Treponemal infection if specimen collected within 7-10 days after appearance of suspect lesions or 2-3 weeks after an exposure. Clinical correlation is required. Normal [facility] Comment on above: Order Comment: Speci men Type: BLOOD SPECIMEN [facility] Address: [address] [place], [place] [address] Performed By: #### 7 3752-8, 47275-2, 91234-6 #### [facility] CLIA [id number] [address] [place] [address] [place] T. pallidum IgG+IgM IA Ql (S) Non-Reactive Normal Nonreactive [facility] Comment on above: Order Comment: Speci men Type: BLOOD SPECIMEN [facility] Address: [address] [place] [address] Performed By: #### 7 3752-8, 04480-0, 22386-2 #### [facility] CLIA [id number] [address] [place] [address] [place] TSH BLDon 08-19-2022 TSH Qn 1.190 m[IU]/L 0.270 - 4.200 mIU/L [facility] TSH SerPl-aCncon 08-19-2022 TSH Qn 1.190 m[IU]/L Normal 0.270-4.[address] [facility] Comment on above: Order Comment: Speci men Type: BLOOD SPECIMEN [facility] Address: [address] [place] [address] Result Comment: If t he patient is , TSH reference range varies by gestational period: First Trimester (weeks 9-12): 0.180-2.990 mIU/L Second Trimester: 0.110-3.980 mIU/L Third Trimester: 0.480-4.710 mIU/L Rafiq Winston et al. A Practical Approach for the Verifications and Determination of Site- and Trimester-Specific Reference Intervals for Thyroid Function tests in . Thyroid, 2019:29:3:412-420. William Bautista, et al. 2017 Guidelines of the [place] [employer] for the Diagnosis and Management of Thyroid Disease during and the . Thyroid, 2017:27:3:315-389. Performed By: #### 3 016-3 #### [facility] CLIA [id number] [address] [place] [address] [place] TYPE + SCREEN PRENATALon ABO O [facility] HIstorical Ab Scr Status Negative [facility] Rh Nom (Bld) Positive [facility] Type and Screen Expiration 08/22/2022 23:59 [facility] ABO O Normal [facility] Comment on above: Order Comment: Speci men Type: BLOOD SPECIMEN [facility] Address: [address] [place] [address] Performed By: #### T SPN #### [facility] CLIA [id number] [address] HISTORICAL AB SCR STATUS Negative Normal [facility] Comment on above: Order Comment: Speci men Type: BLOOD SPECIMEN [facility] Address: [address] [place] [address] Performed By: #### T SPN #### [facility] CLIA [id number] [address] Rh Nom (Bld) Positive Normal [facility] Comment on above: Order Comment: Speci men Type: BLOOD SPECIMEN [facility] Address: [address] [place] [address] Performed By: #### T SPN #### [facility] CLIA [id number] [address] TYPE AND SCREEN EXPIRATION 08/22/2022 23:[address] [facility] Comment on above: Order Comment: Speci men Type: BLOOD SPECIMEN [facility] Address: [address] [place] [address] Performed By: #### T SPN #### [facility] CLIA [id number] [address] [place] [address] [place] URINE OB DIP B/Oon 2 Glucose Ql (U) Negative Neg mg/dL [facility] Protein.monoclonal (U) [Mass/Vol] Negative Neg mg/dL [facility] CONFIRM BLOOD TYPEon 022 ABO O Normal [facility] Comment on above: Order Comment: Speci men Type: BLOOD SPECIMEN [facility] Address: [address] [place] [address] Performed By: #### C ONABO #### [facility] CLIA [id number] [address] [place] Rh Nom (Bld) Positive Normal [facility] Comment on above: Order Comment: Speci men Type: BLOOD SPECIMEN [facility] Address: [address] [place] [address] Performed By: #### C ONABO #### [facility] [place] [id number] [address] ED Triage Noteon 08-14-2022 ED Triage Note HNO ID: [id number] Author: Kaushik Justice APRN.CNP Service: Emergency Medicine [...] a week. She was previously seen at [place] [facility] where she states she had an [...] positive send OB triage SIGNATURE: Kaushik Justice APRN.LOSS PREVENTION SUPERVISOR Normal [facility] TYPE + SCREEN PRENATALon ABO O Normal [facility] Comment on above: Order Comment: Speci men Type: BLOOD SPECIMEN Ordering Facility: [facility] Address: [address] [place] [address] Performed By: #### T SPN #### [facility] BLOOD [facility] [id number] [address] HISTORICAL AB SCR STATUS Negative Normal [facility] Comment on above: Order Comment: Speci men Type: BLOOD SPECIMEN Ordering Facility: [facility] Address: [place] Performed By: #### T SPN #### [facility]OD [facility] CLIA [id number] [address] Rh Nom (Bld) Positive Normal [facility] Comment on above: Order Comment: Speci men Type: BLOOD SPECIMEN Ordering Facility: [facility] Address: [address] [place] [address] Performed By: #### T SPN #### [facility]OD [facility] CLIA [id number] [address] TYPE AND SCREEN EXPIRATION 08/17/2022 23:59 Normal [facility] Comment on above: Order Comment: Speci men Type: BLOOD SPECIMEN Ordering Facility: [facility] Address: [address] [place] [address] Performed By: #### T SPN #### [facility]LOOD [facility] CLIA [id number] [address] 08-10-2022 [facility] Telephone (OBGMEM) LUZ OLIVEIRA ([id number]) 2000 F Date Time Provider Department 08/10/22 [...] Status:Closed by NISA MURPHY on 11/11/[address] [facility] Absolute lymphocyte counton 08-09-2022 Lymphocytes Auto (Unsp spec) [#/Vol] 1.23 10*3/uL 0.83-4.[address] [facility] Work Phone: Basophil percentageon 2021 Basophils/100 WBC (Bld) 0.2 % 0-[address] [facility] Work Phone: Bilirubin [Mass/Vol] 0.50 mg/dL 0.20-1.00 [facility] Work Phone: Comment on above: For patients on eltr ombopag therapy, use of Dimension [place] TBIL is not recommended. Chloride [Moles/Vol] 107 mmol/L 98-107 [facility] Work Phone: Eosinophils/100 WBC (Bld) 0.3 % 0-[address] [facility] Work Phone: Glucose [Mass/Vol] 122 mg/dL 74-106 [facility] Work Phone: Comment on above: Fasting Glucose resu lt from 100 to 125 mg/dL suggests IMPAIRED HOMEOSTASIS per A.D.A. criteria. Neutrophils (Bld) [#/Vol] 4.2 10*3/uL 2.0-7.[address] [facility] Work Phone: Neutrophils/100 WBC (Bld) 71.9 % 47-[address] [facility] Work Phone: Potassium [Moles/Vol] 3.5 mmol/L 3.5-5.1 [facility] Work Phone: Protein [Mass/Vol] 7.3 g/dL 6.4-8.2 [facility] Work Phone: Sodium [Moles/Vol] 139 mmol/L 136-145 [facility] Work Phone: WBC (Bld) [#/Vol] 5.9 10*3/uL 4.4-11.0 [facility] Work Phone: Basophil percentage 0 SEEN /hpf 0-5 [facility] Work Phone: Beta hCG serum qualon 2021 Beta HCG ( test) Ql Negative [facility] Work Phone: Comment on above: TEST is *P OSITIVE* Bilirubin Test strip Ql (U)o n 08-09-2022 Bilirubin Ql (U) Negative Negative [facility] Work Phone: Blood erythrocytes count (nu mber/volume)on 08-09-2022 RBC (Bld) [#/Vol] 4.26 10*6/uL 4.2-5.4 [facility] Work Phone: Blood hemoglobin measurement (mass/volume)on 08-09-2022 Hemoglobin (Bld) [Mass/Vol] 13.4 g/dL 12.0-15.[address] [facility] Work Phone: [phone] Blood lymphocytes/100 leukoc yteson 08-09-2022 Lymphocytes/100 WBC (Bld) 21.0 % 19-[address] [facility] Work Phone: [phone] Blood monocytes/100 leukocyt eson 08-09-2022 Monocytes/100 WBC (Bld) 6.3 % 0-[address] [facility] Work Phone: [phone] Blood platelet mean volumeon 08-09-2022 Platelet mean volume (Bld) [Entitic vol] 10.1 fL 6.2-12.[address] [facility] Work Phone: [phone] Determination of erythrocyte mean corpuscular volume (MCV)on 08-09-2022 MCV (RBC) [Entitic vol] 91.8 fL 81-[address] [facility] Work Phone: Hematocrit Auto (Bld) [Volum e fraction]on 08-09-2022 Hematocrit (Bld) [Volume fraction] 39.1 % 37-[address] [facility] Work Phone: [phone] Ketones Test strip Ql (U)on 08-09-2022 Ketones Ql (U) Negative Negative [facility] Work Phone: [phone] Laboratory - Chemistry and C hemistry - challengeon 08-09-2022 ALP [Catalytic activity/Vol] 56 U/L 45-[address] [facility] Work Phone: ALT [Catalytic activity/Vol] 67 U/L 13-[address] [facility] Work Phone: [phone] CO2 [Moles/Vol] 25.0 mmol/L 21.0-32.[address] [facility] Work Phone: Globulin (S) [Mass/Vol] 3.5 g/dL 2.2-4.[address] [facility] Work Phone: [phone] Urea nitrogen/Creatinine [Mass ratio] 9.7 mg/mg 10-[address] [facility] Work Phone: [phone] Laboratory - Hematology and Cell countson 08-09-2022 Erythrocyte distribution width (RBC) [Entitic vol] 42.5 fL 35.1-43.[address] [facility] Work Phone: [phone] Erythrocyte distribution width (RBC) [Ratio] 12.8 % 11.6-14.[address] [facility] Work Phone: [phone] Immature granulocytes/100 WBC (Bld) 0.300 % 0.0-0.[address] [facility] Work Phone: [phone] Comment on above: IG% - Immature Granu locytes (promyelocytes, myelocytes and metamyelocytes) > 1% indicates that a LEFT SHIFT is Present. MCH (RBC) [Entitic mass] 31.5 pg 27.0-32.[address] [facility] Work Phone: [phone] Nucleated RBC/100 WBC (Bld) [Ratio] 0 % 0-[address] [facility] Work Phone: [phone] MCHC Auto (RBC) [Mass/Vol]on 08-09-2022 MCHC (RBC) [Mass/Vol] 34.3 g/dL 32-36 [facility] Work Phone: [phone] Mucus LM Ql (Urine sed)on Mucus Ql (Urine sed) 0 SEEN /hpf [facility] Work Phone: [phone] Nitrite Test strip Ql (U)on 08-09-2022 Nitrite Ql (U) Negative Negative [facility] Work Phone: [phone] Panel Informationon 08-09 Estimated Creatinine Clearance Calc 81.20 ml/min [facility] Work Phone: [phone] Estimated GFR (MDRD) Amer 111 mL/min >[address] [facility] Work Phone: [phone] Comment on above: GFR Calc Estimated GFR (MDRD) Non-Af Amer 91 mL/min >[address] [facility] Work Phone: Comment on above: Non- GFR Calc Platelets bldon 08-09-2022 Platelets (Bld) [#/Vol] 224 10*3/uL 150-[address] [facility] Work Phone: Protein Test strip Ql (U)on 08-09-2022 Protein Ql (U) Negative Negative [facility] Work Phone: Serum or plasma albumin sabino urement (mass/volume)on 08-09-2022 Albumin [Mass/Vol] 3.8 g/dL 3.2-5.0 [facility] Work Phone: Serum or plasma albumin/glob ulin mass ratioon 08-09-2022 Albumin/Globulin [Mass ratio] 1.1 {ratio} 0.9-2.[address] [facility] Work Phone: Serum or plasma calcium sabino urement (mass/volume)on 08-09-2022 Calcium [Mass/Vol] 9.2 mg/dL 8.5-10.1 [facility] Work Phone: Serum or plasma choriogonado tropin detectionon 08-09-2022 HCG ( [place] [address] mIU/mL <[address] [facility] Work Phone: Comment on above: hCG levels with Gest ational AgeGestational Age hCG mIU/mL (IU/L)0.2 - 1 week 5 - 501-2 weeks 50 - 5002-3 weeks 100 - 48256-5 weeks 500 - 603663-5 weeks 1000 - 175204-9 weeks 46570 - 100,0006-8 weeks 21503 - 200,0002-3 months 72234 - 100,000 Serum or plasma creatinine m easurement (mass/volume)on 08-09-2022 Creatinine [Mass/Vol] 0.82 mg/dL 0.55-1.02 [facility] Work Phone: Comment on above: The validity of the calculated GFR & GFRAA in patients over 70 years has not been determined. Clinical correlation is essential. Serum or plasma urea nitroge n measurement (mass/volume)on 08-09-2022 Urea nitrogen [Mass/Vol] 8 mg/dL 7-[address] [facility] Work Phone: Squamous epithelial cells de tection in urine sediment by light microscopyon 08-09-2022 Epithelial cells.squamous LM Ql (Urine sed) 0-5 SEEN /hpf 5-[address] [facility] Work Phone: Thin prep Papanicolaou smear with manual screeningon 08-09-2022 Thin prep Papanicolaou smear with manual screening 38 U/L 15-[address] [facility] Work Phone: [phone] Thin prep Papanicolaou smear with manual screening 7 5-[address] [facility] Work Phone: Urine blood detectionon 07-13 RBC Ql (U) 25 /ul Negative [facility] Work Phone: RBC Ql (U) 0 SEEN /hpf 0-[address] [facility] Work Phone: Urine clarityon 08-09-2022 Clarity (U) Clear Clear [facility] Work Phone: Urine color determinationon 08-09-2022 Color (U) Yellow Yellow [facility] Work Phone: Urine glucose detectionon Glucose Ql (U) Normal mg/dl Normal [facility] Work Phone: Urine leukocyte esterase det ection by dipstickon 08-09-2022 Leukocyte esterase Test strip Ql (U) 25 /ul Negative [facility] Work Phone: Urine pHon 08-09-2022 pH (U) 7.0 [pH] 5.0 - 8.[address] [facility] Work Phone: Urine sediment bacteria coun t by microscopy (number/high power field)on 08-09-2022 Bacteria LM.HPF (Urine sed) [#/Area] 0 /[HPF] None Seen [facility] Work Phone: Urine specific gravity measu rementon 08-09-2022 Specific gravity (U) [Rel density] 1.010 1.002-1.[address] [facility] Work Phone: Urobilinogen Auto test strip Ql (U)on 08-09-2022 Urobilinogen Ql (U) Normal mg/dl Normal [facility] Work Phone: CBCon 08-04-2022 Hematocrit (Bld) [Volume [...] vol] 9.9 fL 7.4 - 12.4 fL [facility] Comment on above: MPV is a calculated measurement using platelet volume ratio. Platelets (Bld) [#/Vol] 217 10*3/uL 140 - 440 10*3/uL [facility] RBC (Bld) [#/Vol] 4.27 10*6/uL 3.80 - 5.2 0 10*6/uL [facility] WBC (Bld) [#/Vol] 5.4 10*3/uL 3.6 - 10.7 10*3/uL [facility] Test Performed by [facility], [address] [place] [address]. [address] LAB [facility] HCG, QUANTITATIVE, on 08-04-2022 hCG Quant 3840 m[IU]/mL [facility] Comment on above: Females < 5 Values [...] or gestational trophoblastic disease. Test Performed by [facility], [address] [place] [address] LAB [facility] Hemogram 08-04-2022 Erythrocyte distribution width (RBC) [Ratio] 12.8 % Normal 11.5-14.5 [facility] Comment on above: Performed By: #### H IZAG QWNT5 #### [address] [place] [address] Hematocrit (Bld) [Volume fraction] 39.2 % Normal 35.0-47.0 [facility] Comment on above: Performed By: #### H LIONEL QWNT5 #### [address] [place] [address] Hemoglobin (Bld) [Mass/Vol] 13.4 g/dL Normal 11.7-16.0 [facility] Comment on above: Performed By: #### H EMOG QWNT5 #### [address] [place] [address] MCH (RBC) [Entitic mass] 31.4 pg Normal 26.0-34.0 [facility] Comment on above: Performed By: #### H EMOG, QWNT5 #### [address] [place] [address] MCHC 34.2 % Normal 32.0-36.0 [facility] Comment on above: Performed By: #### H EMOG, QWNT5 #### [address] [place] [address] MCV (RBC) [Entitic vol] 91.8 fL Normal 79.0-98.0 [facility] Comment on above: Performed By: #### H EMOSamuel, QWNT5 #### [facility] [address] [place] [address] Platelet mean volume (Bld) [Entitic vol] 9.9 fL Normal 7.4-12.4 [facility] Comment on above: Result Comment: MPV is a calculated measurement using platelet volume ratio. Performed By: #### H EMOG, QWNT5 #### [facility] [address] [place] [address] Platelets (Bld) [#/Vol] 217 10*3/uL Normal 140-440 [facility] Comment on above: Performed By: #### H EMOG, QWNT5 #### [facility] [address] [place] [address] RBC (Bld) [#/Vol] 4.27 10*6/uL Normal 3.80-5.20 [facility] Comment on above: Performed By: #### H EMOG, QWNT5 #### [facility] [address] [place] [address] WBC (Bld) [#/Vol] 5.4 10*3/uL Normal 3.6-10.7 [facility] Comment on above: Performed By: #### H EMOG, QWNT5 #### [facility] [address] [place] [address] GELon 08-04-2022 GEL ABO Group: O Rh, Gel: POS Antibody Screen Gel: NEG Normal [facility] Comment on above: Performed By: #### P NGL #### [facility] TYPE AND SCREENon 1 ABO Grouping O [facility] Work Phone: Rh Type Positive [facility] Work Phone: Test Performed by [facility], [address] , [place], [place] [id number] [place] [address] LAB [facility] Work Phone: US OB TRANSVAGINALon 2 022 Patient Name: LUZ OLIVEIRA Ultrasound ACCESSION EXAM DATE/TIME PROCEDURE ORDERING PROVIDER [id number] 08/04/2022 12:05 EDT [place] [id number] HARRISON Transvaginal CPT code 27363 Reason For Exam (US Transvaginal) 7 weeks [...] ALFRED Transcribed Date and Time: 08/04/2022 12:31 [facility] Silas Pickens DO - 08/04/2022 Patient Name: LUZ OLIVEIRA Ultrasound ACCESSION EXAM DATE/TIME PROCEDURE ORDERING PROVIDER [id number] 08/04/2022 12:05 EDT US MELANIA OCAMPO Transvaginal CPT code 04953 Reason For Exam (US Transvaginal) 7 weeks [...] TRANSVAGINALOrdered By : Silas Pickens on 08-04-2022 [facility] Work Phone: US Transvaginalon 08-04-2022 US Transvaginal Patient Name: LUZ OLIVEIRA Ultrasound ACCESSION EXAM DATE/TIME PROCEDURE ORDERING PROVIDER [id number] 08/04/2022 12:05 EDT [place] [id number] -AUSTYNIRAI, ANIS Transvaginal CPT code 87437 Reason For Exam (US Transvaginal) 7 weeks [...] Transcribed Date and Time: 08/04/2022 12:31 Normal [facility] hCG Quantitativeon hCG Quantitative 3840 m[IU]/mL Normal [facility] Comment on above: Result Comment: Fema [...] gestational trophoblastic disease. Performed By: #### H [facility], QWNT5 #### [facility] [address] [place] [address] CNCOon 07-20-2022 CNCO Letter Text Normal [facility] Eliecer 07-09-2022 [facility] Telephone ([employer]) LUZ OLIVEIRA ([id number]) 2000 F Date Time Provider Department 07/09/22 [...] (FLONASE) 50 mcg/actuation nasal spray Use 1 [place] in each nostril once daily. 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 Work Phone: Basophil percentageon 2021 Basophil percentage 0-5 SEEN /hpf 0-5 [facility] Work Phone: Basophils/100 WBC (Bld) 0.1 % 0-[address] [facility] Work Phone: Chloride [Moles/Vol] 106 mmol/L 98-107 [facility] Work Phone: Eosinophils/100 WBC (Bld) 0.2 % 0-[address] [facility] Work Phone: Glucose [Mass/Vol] 98 mg/dL 74-106 [facility] Work Phone: Neutrophils (Bld) [#/Vol] 6.1 10*3/uL 2.0-7.[address] [facility] Work Phone: Neutrophils/100 WBC (Bld) 72.2 % 47-[address] [facility] Work Phone: Potassium [Moles/Vol] 3.9 mmol/L 3.5-5.1 [facility] Work Phone: Sodium [Moles/Vol] 142 mmol/L 136-145 [facility] Work Phone: WBC (Bld) [#/Vol] 8.5 10*3/uL 4.4-11.0 [facility] Work Phone: Beta hCG serum qualon 2021 Beta HCG ( test) Ql Negative [facility] Work Phone: Bilirubin Test strip Ql (U)o n 06-29-2022 Bilirubin Ql (U) Negative Negative [facility] Work Phone: Blood erythrocytes count (nu mber/volume)on 06-29-2022 RBC (Bld) [#/Vol] 4.44 10*6/uL 4.2-5.4 [facility] Work Phone: Blood hemoglobin measurement (mass/volume)on 06-29-2022 Hemoglobin (Bld) [Mass/Vol] 13.7 g/dL 12.0-15.[address] [facility] Work Phone: Blood lymphocytes/100 leukoc yteson 06-29-2022 Lymphocytes/100 WBC (Bld) 21.2 % 19-[address] [facility] Work Phone: Blood monocytes/100 leukocyt eson 06-29-2022 Monocytes/100 WBC (Bld) 5.8 % 0-[address] [facility] Work Phone: [phone] Blood platelet mean volumeon 06-29-2022 Platelet mean volume (Bld) [Entitic vol] 9.9 fL 6.2-12.[address] [facility] Work Phone: Determination of erythrocyte mean corpuscular volume (MCV)on 06-29-2022 MCV (RBC) [Entitic vol] 90.5 fL 81-[address] [facility] Work Phone: Hematocrit Auto (Bld) [Volum e fraction]on 06-29-2022 Hematocrit (Bld) [Volume fraction] 40.2 % 37-[address] [facility] Work Phone: [phone] Ketones Test strip Ql (U)on 06-29-2022 Ketones Ql (U) Negative Negative [facility] Work Phone: Laboratory - Chemistry and C hemistry - challengeon 06-29-2022 CO2 [Moles/Vol] 28.0 mmol/L 21.0-32.[address] [facility] Work Phone: Urea nitrogen/Creatinine [Mass ratio] 23.1 mg/mg 10-[address] [facility] Work Phone: [phone] Laboratory - Hematology and Cell countson 06-29-2022 Erythrocyte distribution width (RBC) [Entitic vol] 41.0 fL 35.1-43.[address] [facility] Work Phone: [phone] Erythrocyte distribution width (RBC) [Ratio] 12.7 % 11.6-14.[address] [facility] Work Phone: [phone] Immature granulocytes/100 WBC (Bld) 0.500 % 0.0-0.[address] [facility] Work Phone: [phone] Comment on above: IG% - Immature Granu locytes (promyelocytes, myelocytes and metamyelocytes) > 1% indicates that a LEFT SHIFT is Present. MCH (RBC) [Entitic mass] 30.9 pg 27.0-32.[address] [facility] Work Phone: Nucleated RBC/100 WBC (Bld) [Ratio] 0 % 0-[address] [facility] Work Phone: MCHC Auto (RBC) [Mass/Vol]on 06-29-2022 MCHC (RBC) [Mass/Vol] 34.1 g/dL 32-36 [facility] Work Phone: Mucus LM Ql (Urine sed)on Mucus Ql (Urine sed) 0 SEEN /hpf [facility] Work Phone: Nitrite Test strip Ql (U)on 06-29-2022 Nitrite Ql (U) Negative Negative [facility] Work Phone: No Panel Informationon 06-29 Estimated Creatinine Clearance Calc 89.98 ml/min [facility] Work Phone: Estimated GFR (MDRD) Amer 126 mL/min >[address] [facility] Work Phone: Comment on above: GFR Calc Estimated GFR (MDRD) Non-Af Amer 104 mL/min >[address] [facility] Work Phone: Comment on above: Non- GFR Calc Platelets bldon 06-29-2022 Platelets (Bld) [#/Vol] 287 10*3/uL 150-[address] [facility] Work Phone: Protein Test strip Ql (U)on 06-29-2022 Protein Ql (U) 30 mg/dl Negative [facility] Work Phone: [phone] Serum or plasma calcium sabino urement (mass/volume)on 06-29-2022 Calcium [Mass/Vol] 9.7 mg/dL 8.5-10.1 [facility] Work Phone: [phone] Serum or plasma creatinine m easurement (mass/volume)on 06-29-2022 Creatinine [Mass/Vol] 0.74 mg/dL 0.55-1.02 [facility] Work Phone: Comment on above: The validity of the calculated GFR & GFRAA in patients over 70 years has not been determined. Clinical correlation is essential. Serum or plasma urea nitroge n measurement (mass/volume)on 06-29-2022 Urea nitrogen [Mass/Vol] 17 mg/dL 7-[address] [facility] Work Phone: Squamous epithelial cells de tection in urine sediment by light microscopyon 06-29-2022 Epithelial cells.squamous LM Ql (Urine sed) 0-5 SEEN /hpf 5-[address] [facility] Work Phone: Thin prep Papanicolaou smear with manual screeningon 06-29-2022 Thin prep Papanicolaou smear with manual screening 8 5-[address] [facility] Work Phone: Urine blood detectionon 06-11 RBC Ql (U) 25 /ul Negative [facility] Work Phone: RBC Ql (U) 0-5 SEEN /hpf 0-[address] [facility] Work Phone: Urine clarityon 06-29-2022 Clarity (U) Clear Clear [facility] Work Phone: Urine color determinationon 06-29-2022 Color (U) Yellow Yellow [facility] Work Phone: Urine glucose detectionon Glucose Ql (U) Normal mg/dl Normal [facility] Work Phone: Urine leukocyte esterase det ection by dipstickon 06-29-2022 Leukocyte esterase Test strip Ql (U) 25 /ul Negative [facility] Work Phone: Urine pHon 06-29-2022 pH (U) 6.5 [pH] 5.0 - 8.[address] [facility] Work Phone: Urine sediment bacteria coun t by microscopy (number/high power field)on 06-29-2022 Bacteria LM.HPF (Urine sed) [#/Area] 0 /[HPF] None Seen [facility] Work Phone: Urine specific gravity measu rementon 06-29-2022 Specific gravity (U) [Rel density] 1.010 1.002-1.[address] [facility] Work Phone: Urobilinogen Auto test strip Ql (U)on 06-29-2022 Urobilinogen Ql (U) Normal mg/dl Normal [facility] Work Phone: CBC W Auto Differential pane l (Bld)on 05-31-2022 Basophils (Bld) [#/Vol] 10*3/uL Normal <0.11 [facility] Comment on above: Order Comment: Speci men Type: BLOOD SPECIMENOrdering Facility: [facility] Address: [address] [address] Performed By: #### 5 7021-8 ####[facility] LABORATORYCLIA [id number] [address] [place] Basophils/100 WBC (Bld) 0.0 % Normal [facility] Comment on above: Order Comment: Speci men Type: BLOOD SPECIMENOrdering Facility: [facility] Address: [address] [place] [address] Performed By: #### 5 7021-8 ####[facility] LABORATORYCLIA [id number] [address] [place] Differential cell count method Nom (Bld) Auto Normal [facility] Comment on above: Order Comment: Speci men Type: BLOOD SPECIMENOrdering Facility: [facility] Address: [address] [place] [address] Performed By: #### 5 7021-8 ####[facility]ATORYCLIA [id number] [place] [address] [place] Eosinophils (Bld) [#/Vol] 10*3/uL Normal <0.46 [facility] Comment on above: Order Comment: Speci men Type: BLOOD SPECIMENOrdering Facility: [facility] Address: [address] [place] [address] Performed By: #### 5 7021-8 ####[facility]ORYCLIA [id number] [place] [address] [place] Eosinophils/100 WBC (Bld) 0.2 % Normal [facility] Comment on above: Order Comment: Speci men Type: BLOOD SPECIMENOrdering Facility: [facility] Address: [address] [place] [address] Performed By: #### 5 7021-8 ####[facility] LABORATORYCLIA [id number] [address] Erythrocyte distribution width (RBC) [Ratio] 12.5 % Normal 11.5-15.0 [facility] Comment on above: Order Comment: Speci men Type: BLOOD SPECIMENOrdering Facility: [facility] Address: [address] [place] [address] Performed By: #### 5 7021-8 ####[facility] LABORATORYCLIA [id number] [address] Hematocrit (Bld) [Volume fraction] 38.8 % Normal 36.0-46.0 [facility] Comment on above: Order Comment: Speci men Type: BLOOD SPECIMENOrdering Facility: [facility] Address: [address] [place] [address] Performed By: #### 5 7021-8 ####[facility] LABORATORYCLIA [id number] [address] Hemoglobin (Bld) [Mass/Vol] 13.4 g/dL Normal 11.5-15.5 [facility] Comment on above: Order Comment: Speci men Type: BLOOD SPECIMENOrdering Facility: [facility] Address: [address] [place] [address] Performed By: #### 5 7021-8 ####[facility] LABORATORYCLIA [id number] [address] IMMATURE GRAN % 0.2 % Normal [facility] Comment on above: Order Comment: Speci men Type: BLOOD SPECIMENOrdering Facility: [facility] Address: [address] [place] [address] Performed By: #### 5 7021-8 ####[facility] LABORATORYCLIA [id number] [place] [address] IMMATURE GRAN ABS <0.03 Normal <0.10 [facility] Comment on above: Order Comment: Speci men Type: BLOOD SPECIMENOrdering Facility: [facility] Address: [address] [place] [address] Performed By: #### 5 7021-8 ####[facility] LABORATORYCLIA [id number] [address] OF [facility] Lymphocytes (Bld) [#/Vol] 1.08 10*3/uL Normal 1.00-4.00 [facility] Comment on above: Order Comment: Speci men Type: BLOOD SPECIMENOrdering Facility: [facility] Address: [address] [place] [address] Performed By: #### 5 7021-8 ####[facility] LABORATORYCLIA [id number] [address] Lymphocytes/100 WBC (Bld) 26.3 % Normal [facility] Comment on above: Order Comment: Speci men Type: BLOOD SPECIMENOrdering Facility: [facility] Address: [address] [place] [address] Performed By: #### 5 7021-8 ####[facility] LABORATORYCLIA [id number] [address] MCH (RBC) [Entitic mass] 30.2 pg Normal 26.0-34.0 [facility] Comment on above: Order Comment: Speci men Type: BLOOD SPECIMENOrdering Facility: [facility] Address: [address] [place] [address] Performed By: #### 5 7021-8 ####[facility] LABORATORYCLIA [id number] [address] MCHC (RBC) [Mass/Vol] 34.5 g/dL Normal 30.5-36.0 [facility] Comment on above: Order Comment: Speci men Type: BLOOD SPECIMENOrdering Facility: [facility] Address: [address] [place] [address] Performed By: #### 5 7021-8 ####[facility]ATORYCLIA [id number] [address] [place] MCV (RBC) [Entitic vol] 87.6 fL Normal 80.0-100.0 [facility] Comment on above: Order Comment: Speci men Type: BLOOD SPECIMENOrdering Facility: [facility] Address: [address] [place] [address] Performed By: #### 5 7021-8 ####[facility]ATORYCLIA [id number] [address] [place] Monocytes (Bld) [#/Vol] 0.34 10*3/uL Normal <0.87 [facility] Comment on above: Order Comment: Speci men Type: BLOOD SPECIMENOrdering Facility: [facility] Address: [address] [place] [address] Performed By: #### 5 7021-8 ####[facility] LABORATORYCLIA [id number] [address] Monocytes/100 WBC (Bld) 8.3 % Normal [facility] Comment on above: Order Comment: Speci men Type: BLOOD SPECIMENOrdering Facility: [facility] Address: [address] [place] [address] Performed By: #### 5 7021-8 ####[facility] LABORATORYCLIA [id number] [address] [place] Neutrophils (Bld) [#/Vol] 2.66 10*3/uL Normal 1.45-7.50 [facility] Comment on above: Order Comment: Speci men Type: BLOOD SPECIMENOrdering Facility: [facility] Address: [address] [place] [address] Performed By: #### 5 7021-8 ####[facility] LABORATORYCLIA [id number] [address] [place] Neutrophils/100 WBC (Bld) 65.0 % Normal [facility] Comment on above: Order Comment: Speci men Type: BLOOD SPECIMENOrdering Facility: [facility] Address: [address] Performed By: #### 5 7021-8 ####[facility] LABORATORYCLIA [id number] [address] Nucleated RBC (Bld) [#/Vol] 10*3/uL Normal <0.01 [facility] Comment on above: Order Comment: Speci men Type: BLOOD SPECIMENOrdering Facility: [facility] Address: [address] Performed By: #### 5 7021-8 ####[facility] LABORATORYCLIA [id number] [address] Nucleated RBC/100 WBC (Bld) [Ratio] 0.0 /100 WBC Normal [facility] Comment on above: Order Comment: Speci men Type: BLOOD SPECIMENOrdering Facility: [facility] Address: [address] [place] [address] Performed By: #### 5 7021-8 ####[facility] LABORATORYCLIA [id number] [address] STATES [facility] Platelet mean volume (Bld) [Entitic vol] 9.7 fL Normal 9.0-12.7 [facility] Comment on above: Order Comment: Speci men Type: BLOOD SPECIMENOrdering Facility: [facility] Address: [address] Performed By: #### 5 7021-8 ####[facility] LABORATORYCLIA [id number] [address] Platelets (Bld) [#/Vol] 178 10*3/uL Normal 150-400 [facility] Comment on above: Order Comment: Speci men Type: BLOOD SPECIMENOrdering Facility: [facility] Address: [address] [place] [address] Performed By: #### 5 7021-8 ####[facility] LABORATORYCLIA [id number] [address] [place] RBC (Bld) [#/Vol] 4.43 10*6/uL Normal 3.90-5.20 [facility] Comment on above: Order Comment: Speci men Type: BLOOD SPECIMENOrdering Facility: [facility] Address: [address] [place] [address] Performed By: #### 5 7021-8 ####[facility] LABORATORYCLIA [id number] [address] OF [facility] WBC (Bld) [#/Vol] 4.10 10*3/uL Normal 3.70-11.00 [facility] Comment on above: Order Comment: Speci men Type: BLOOD SPECIMENOrdering Facility: [facility] Address: [address] [place] [address] Performed By: #### 5 7021-8 ####[facility] LABORATORYCLIA [id number] [address] Comprehensive metabolic 2000 panelon 05-31-2022 Albumin [Mass/Vol] 4.5 g/dL Normal 3.9-4.9 [facility] Comment on above: Order Comment: Speci men Type: BLOOD SPECIMENOrdering Facility: [facility] Address: [address] [place] [address] Performed By: #### 3 040-3, 25977-7, 54103-9 ####[facility] LABORATORYCLIA [id number] [address] STATES OF [facility] ALP [Catalytic activity/Vol] 60 U/L Normal 34-123 [facility] Comment on above: Order Comment: Speci men Type: BLOOD SPECIMENOrdering Facility: [facility] Address: [address] [place] [address] Performed By: #### 3 040-3, 19062-2, 58769-9 ####[facility] LABORATORYCLIA [id number] [address] OF [facility] ALT With P-5'-P [Catalytic activity/Vol] 55 U/L High 7-38 [facility] Comment on above: Order Comment: Speci men Type: BLOOD SPECIMENOrdering Facility: [facility] Address: [address] [place] [address] Performed By: #### 3 040-3, , ####[facility] LABORATORYCLIA [id number] [address] STATES OF [facility] Anion gap [Moles/Vol] 12 mmol/L Normal 9-18 [facility] Comment on above: Order Comment: Speci men Type: BLOOD SPECIMENOrdering Facility: [facility] Address: [address] [place] [address] Performed By: #### 3 040-3, , ####[facility] LABORATORYCLIA [id number] [place] [address] [place] AST With P-5'-P [Catalytic activity/Vol] 57 U/L High 13-35 [facility] Comment on above: Order Comment: Speci men Type: BLOOD SPECIMENOrdering Facility: [facility] Address: [address] [place] [address] Performed By: #### 3 040-3, , ####[facility] LABORATORYCLIA [id number] [place] [address] [place] Bilirubin [Mass/Vol] 0.5 mg/dL Normal 0.2-1.3 [facility] Comment on above: Order Comment: Speci men Type: BLOOD SPECIMENOrdering Facility: [facility] Address: [address] [place] [address] Performed By: #### 3 040-3, 60363-7, ####[facility] LABORATORYCLIA [id number] [address] [place] Calcium [Mass/Vol] 8.9 mg/dL Normal 8.5-10.2 [facility] Comment on above: Order Comment: Speci men Type: BLOOD SPECIMENOrdering Facility: [facility] Address: [address] [place] [address] Performed By: #### 3 040-3, 30791-1, ####[facility] LABORATORYCLIA [id number] [place] [address] [place] Chloride [Moles/Vol] 102 mmol/L Normal 97-105 [facility] Comment on above: Order Comment: Speci men Type: BLOOD SPECIMENOrdering Facility: [facility] Address: [address] [place] [address] Performed By: #### 3 040-3, 43266-8, ####[facility] LABORATORYCLIA [id number] [place] [address] [place] CO2 [Moles/Vol] 25 mmol/L Normal 22-30 [facility] Comment on above: Order Comment: Speci men Type: BLOOD SPECIMENOrdering Facility: [facility] Address: [address] [place] [address] Performed By: #### 3 040-3, , ####[facility] LABORATORYCLIA [id number] [address] OF [facility] Creatinine [Mass/Vol] 0.74 mg/dL Normal 0.58-0.96 [facility] Comment on above: Order Comment: Speci men Type: BLOOD SPECIMENOrdering Facility: [facility] Address: [address] [place] [address] Performed By: #### 3 040-3, , ####[facility] LABORATORYCLIA [id number] [address] ESTIMATED GLOMERULAR FILTRATION RATE 117 mL/min/1.73m??? Normal >=60 [facility] Comment on above: Order Comment: Speci men Type: BLOOD SPECIMENOrdering Facility: [facility] Address: [address] [place] [address] Result Comment: Tierra mated Glomerular Filtration Rate [...] GFR. Performed By: #### 3 040-3, , ####[facility] LABORATORYCLIA [id number] [place] [address] [place] Glucose [Mass/Vol] 91 mg/dL Normal 74-99 [facility] Comment on above: Order Comment: Eloise lopez Type: BLOOD SPECIMENOrdering Facility: [facility] Address: [address] [place] [id number] Result Comment: The [employer] (ADA) provides guidance for cutoff [...] Standards of Medical Care in Diabetes 2016, [employer]. Diabetes Care. 2016.39(Suppl 1). Performed By: #### 3 040-3, , ####[facility] LABORATORYCLIA [id number] [place] [id number] [place] Potassium [Moles/Vol] 3.6 mmol/L Low 3.7-5.1 [facility] Comment on above: Order Comment: Eloise lopez Type: BLOOD SPECIMENOrdering Facility: [facility] Address: [address] [place] [address] Performed By: #### 3 040-3, , ####[facility] LABORATORYCLIA [id number] [place] [address] [place] Protein [Mass/Vol] 6.7 g/dL Normal 6.3-8.0 [facility] Comment on above: Order Comment: Speci men Type: BLOOD SPECIMENOrdering Facility: [facility] Address: [address] [place] [address] Performed By: #### 3 040-3, , ####[facility] LABORATORYCLIA [id number] [address] OF [facility] Sodium [Moles/Vol] 139 mmol/L Normal 136-144 [facility] Comment on above: Order Comment: Speci men Type: BLOOD SPECIMENOrdering Facility: [facility] Address: [address] [place] [address] Performed By: #### 3 040-3, 97422-8, ####[facility] LABORATORYCLIA [id number] [address] [place] U[place] nitrogen [Mass/Vol] 7 mg/dL Normal 7-21 [facility] Comment on above: Order Comment: Speci men Type: BLOOD SPECIMENOrdering Facility: [facility] Address: [address] [place] [address] Performed By: #### 3 040-3, 17681-0, ####[facility] LABORATORYCLIA [id number] [address] ED NOTEon 05-31-2022 ED NOTE HNO ID: [id number] Author: Agueda Meng RN Service: Emergency Medicine Author Type: Registered Nurse Type: ED Notes Filed: 05/31/2022 2:42 PM Note Text: Pt alert and oriented x 4, speaking in full sentences with unlabored breathing. Pt verbalizes understanding of discharge paperwork. Pt ambulated from department without difficulty. Normal [facility] ED NOTE HNO ID: [id number] Author: Agueda Meng RN Service: Emergency Medicine [...] bedside at this time. Normal [facility] ED NOTE HNO ID: [id number] Author: Agueda Meng RN Service: Emergency Medicine Author Type: Registered Nurse Type: ED Notes Filed: 05/31/2022 12:14 PM Note Text: POC BG 80 Normal [facility] ED NOTE HNO ID: [id number] Author: Agueda Meng RN Service: Emergency Medicine Author Type: Registered Nurse Type: ED Notes Filed: 05/31/2022 11:36 AM Note Text: Pt c/o weakness along with generalized illness symptoms. Pt placed on the bedside surveillance monitor at this time. Normal [facility] ED NOTE HNO ID: [id number] Author: Danuta Staley RN Service: ? Author Type: Registered Nurse Type: ED Notes Filed: 05/31/2022 11:04 AM Note Text: Bed: 46-ED Expected date: Expected time: Means of arrival: Comments: triage Normal [facility] ED PROV NOTEon 05-31-2022 ED PROV NOTE HNO ID: [id number] Author: Hiwot Hudson MD Service: Emergency Medicine [...] Hudson MD 05/31/22 1548 Normal [facility] ED PROV NOTE HNO ID: [id number] Author: Hiwot Hudson MD Service: Emergency Medicine [...] Diagnosis Date Cognitive disorder IEP per the [facility] Kidney stone [...] (more content not included)... Normal [facility] EKGon 05-31-2022 Electrocardiogram Ventricular Rate : 7 1 BPM Atrial Rate : 71 BPM P-R Interval : 118 ms QRS Duration : 84 ms Q-T Interval : 448 ms QTC Calculation(Bazett) : 486 ms Calculated P [place] : 23 degrees Calculated R [place] : 58 degrees Calculated T [place] : 27 degrees NORMAL SINUS RHYTHM NONSPECIFIC T WAVE ABNORMALITY PROLONGED QT ABNORMAL ECG NO PREVIOUS ECGS AVAILABLE Confirmed by KAUSHIK GUADALUPE MD ([id number]) on 06/04/2022 3:38:07 AM NAME : LUZ OLIVEIRA PID : [id number] : 2000 Gender : Female Race : ORD : Procedure Date : May 31 2022 13:06:20 Edit Date : Jun 04 2022 03:38:08 Diagnosis: NORMAL SINUS RHYTHM NONSPECIFIC T WAVE ABNORMALITY PROLONGED QT ABNORMAL ECG NO PREVIOUS ECGS AVAILABLE Confirmed by KAUSHIK GUADALUPE MD ([id number]) on 06/04/2022 3:38:07 AM Test Reason : Location : 4 : [place] [facility] Overread By : KAUSHIK GUADALUPE MD Edited By : KAUSHIK GUADALUPE MD Referred By : , Acquired by : FRIEDKIRTI Normal [facility] HCG Preg Ur Qlon 05-31-2022 HCG ( test) Ql (U) Negative Normal Negative [facility] Comment on above: Order Comment: Speci men Type: URINE SPECIMENOrdering Facility: [facility] Address: [address] [place], [place] [address] Result Comment: This test is intended to aid in the early detection of . Very dilute urine samples, as indicated by a low specific gravity, may not contain small business representative levels of hCG. This test detects [...] . Performed By: #### 2 106-3 ####[facility] LABORATORYCLIA [id number] [place] [address] [place] Lipase SerPl-cCncon 05-31-20 Lipase [Catalytic activity/Vol] 17 U/L Normal 16-61 [facility] Comment on above: Order Comment: Speci men Type: BLOOD SPECIMENOrdering Facility: [facility] Address: [address] [place] [address] Performed By: #### 3 040-3, 17526-7, 68197-6 ####[facility] LABORATORYCLIA [id number] [place] [address] [place] Magnesium SerPl-mCncon 05-31 Magnesium [Mass/Vol] 1.8 mg/dL Normal 1.7-2.3 [facility] Comment on above: Order Comment: Speci men Type: BLOOD SPECIMENOrdering Facility: [facility] Address: [address] [place] [address] Performed By: #### 3 040-3, 52397-8, 60483-8 ####[facility] LABORATORYCLIA [id number] [place] [address] [place] ROUTINE FLU A/B + RSVon 08- FLUAV RNA CHICHO+probe Ql (Unsp spec) Negative Normal Negative for Influenza A by RT-PCR [facility] Comment on above: Order Comment: Speci men Type: SWAB OF INTERNAL NOSEOrdering Facility: [facility] Address: [address] [place] [address] Performed By: #### R TFRSV, 25685-9 ####[facility] LABCLIA [id number] [address] [place] FLUBV RNA CHICHO+probe Ql (Unsp spec) Negative Normal Negative for Influenza B by RT-PCR [facility] Comment on above: Order Comment: Speci men Type: SWAB OF INTERNAL NOSEOrdering Facility: [facility] Address: [address] [place] [address] Performed By: #### R TFRSV, 79658-5 ####[facility] LABCLIA [id number] [place] [address] [place] RSV A RNA CHICHO+probe Ql (Unsp spec) Negative Normal Negative for Respiratory Syncytial Virus (RSV) by PCR [facility] Comment on above: Order Comment: Speci men Type: SWAB OF INTERNAL NOSEOrdering Facility: [facility] Address: [address] [place] [address] Performed By: #### R TFRSV, 66115-0 ####[facility] LABCLIA [id number] [place] [address] [place] SARS-CoV-2 RNA Resp Ql CHICHO+p robeon 05-31-2022 SARS-CoV-2 (COVID-19) RNA CHICHO+probe Ql (Resp) SARS-CoV-2 (Agent of COVID-19) Detected by RT-PCR or equivalent method. Abnormal Not Detected [facility] Comment on above: Order Comment: Speci men Type: SWAB OF INTERNAL NOSEOrdering Facility: [facility] Address: [address] [place] [address] Result Comment: This test was developed and its performance characteristics determined by [facility] [place]. This test has been authorized by FDA under an Emergency Use Authorization (EUA). This test has been validated in accordance with the FDA's Guidance Document Policy for Diagnostics Testing in Laboratories Certified to Perform High Complexity Testing under CLIA prior to Emergency use Authorization for Coronavirus Disease 2019 during the Public Health Emergency issued on December 09, 2019. Test performed by [facility], [facility] [place], [address] [place] [address]. Performed By: #### R [facility], 86634-8 ####[facility] LABCLIA [id number] [address] [place] Urinalysis complete panel (U )on 05-31-2022 Bilirubin Ql (U) Negative Normal Negative [facility] Comment on above: Order Comment: Speci men Type: URINE SPECIMENOrdering Facility: [facility] Address: [address] [place] [address] Performed By: #### 2 4356-8 ####[facility] LABORATORYCLIA [id number] [address] [place] Clarity (Unsp spec) Clear Normal Clear [facility] Comment on above: Order Comment: Speci men Type: URINE SPECIMENOrdering Facility: [facility] Address: [address] [place] [address] Performed By: #### 2 4356-8 ####[facility] LABORATORYCLIA [id number] [address] [place] Color (U) Colorless Normal yellow [facility] Comment on above: Order Comment: Speci men Type: URINE SPECIMENOrdering Facility: [facility] Address: [address] [place] [address] Performed By: #### 2 4356-8 ####[facility] LABORATORYCLIA [id number] [address] Glucose Test strip (U) [Mass/Vol] Negative Normal Negative [facility] Comment on above: Order Comment: Speci men Type: URINE SPECIMENOrdering Facility: [facility] Address: [address] [place] [address] Performed By: #### 2 4356-8 ####[facility]ORATORYCLIA [id number] [address] Hemoglobin Ql (U) Negative Normal Negative [facility] Comment on above: Order Comment: Speci men Type: URINE SPECIMENOrdering Facility: [facility] Address: [address] [place] [address] Performed By: #### 2 4356-8 ####[facility] LABORATORYCLIA [id number] [address] [place] Ketones Ql (U) 2+ Abnormal Negative [facility] Comment on above: Order Comment: Speci men Type: URINE SPECIMENOrdering Facility: [facility] Address: [address] [place] [address] Performed By: #### 2 4356-8 ####[facility]ATORYCLIA [id number] [address] Leukocyte esterase Test strip Ql (U) Negative Normal Negative [facility] Comment on above: Order Comment: Speci men Type: URINE SPECIMENOrdering Facility: [facility] Address: [address] [place] [address] Performed By: #### 2 4356-8 ####[facility] LABORATORYCLIA [id number] [place] [address] [place] Nitrite Ql (U) Negative Normal Negative [facility] Comment on above: Order Comment: Speci men Type: URINE SPECIMENOrdering Facility: [facility] Address: [address] [place] [address] Performed By: #### 2 4356-8 ####[facility] LABORATORYCLIA [id number] [address] STATES [facility] pH (U) 7.5 [pH] Normal 5.0-8.0 [facility] Comment on above: Order Comment: Speci men Type: URINE SPECIMENOrdering Facility: [facility] Address: [address] [place] [address] Performed By: #### 2 4356-8 ####[facility] LABORATORYCLIA [id number] [address] STATES [facility] Protein (U) [Mass/Vol] Negative Normal Negative [facility] Comment on above: Order Comment: Speci men Type: URINE SPECIMENOrdering Facility: [facility] Address: [address] [place] [address] Performed By: #### 2 4356-8 ####[facility] LABORATORYCLIA [id number] [address] [place] RBC LM.HPF (Urine sed) [#/Area] 0-3 /HPF Normal 0-3 /HPF [facility] Comment on above: Order Comment: Speci men Type: URINE SPECIMENOrdering Facility: [facility] Address: [address] [place] [address] Performed By: #### 2 4356-8 ####[facility] LABORATORYCLIA [id number] [address] Urobilinogen Ql (U) Normal Normal Negative [facility] Comment on above: Order Comment: Speci men Type: URINE SPECIMENOrdering Facility: [facility] Address: [address] [place] [address] Performed By: #### 2 4356-8 ####[facility] LABORATORYCLIA [id number] [address] [place] WBC LM.HPF (Urine sed) [#/Area] 0-5 /HPF Normal 0-5 /HPF [facility] Comment on above: Order Comment: Speci men Type: URINE SPECIMENOrdering Facility: [facility] Address: [address] [place] [address] Performed By: #### 2 4356-8 ####[facility] LABORATORYCLIA [id number] [address] Urinalysis complete pnl Uron 05-31-2022 Specific gravity (U) [Rel density] 1.005 Normal 1.005-1.030 [facility] Comment on above: Order Comment: Speci men Type: URINE SPECIMENOrdering Facility: [facility] Address: [address] [place] [address] Performed By: #### 2 4356-8 ####[facility] LABORATORYCLIA [id number] [address] [address] Result Comment: If s pecific gravity is <1.005 then results may be falsely negative. Serum HCG is recommended. Performed By: #### 2 106-3 ####[facility] LABORATORYCLIA [id number] [address] ALLIED HEALTHon 12-31-2021 ALLIED HEALTH HNO ID: [id number] Author: RT Tierney(R) Service: Radiology Author Type: Mixing Picker Tender Type: Allied Health Filed: 12/31/2021 7:25 PM [...] 2021 TIME: 7:20 PM Normal [facility] Bacteria Ur Culton 2 Bacteria identified Cx Nom (U) CULTURE, URINE: Three or more urogenital den organisms. No predominating uropathogen. Recollect if clinically indicated. Normal [facility] Comment on above: Performed By: #### 6 30-4 #### [facility] CLIA [id number] [address] STATES OF [facility] CBC W Auto Differential pane l (Bld)on 12-31-2021 Basophils (Bld) [#/Vol] 10*3/uL Normal <0.11 [facility] Comment on above: Order Comment: Speci men Type: BLOOD SPECIMENOrdering Facility: [facility] Address: [address] [place] [address] [place] [address] Performed By: #### 5 7021-8 ####[facility] LABCLIA [id number] [address] STATES OF [facility] Basophils/100 WBC (Bld) 0.1 % Normal [facility] Comment on above: Order Comment: Speci men Type: BLOOD SPECIMENOrdering Facility: [facility] Address: [address] [place] [address] Performed By: #### 5 7021-8 ####[facility] LABCLIA [id number] [facility] [place] [place] [address] [facility] Differential cell count method Nom (Bld) Auto Normal [facility] Comment on above: Order Comment: Speci men Type: BLOOD SPECIMENOrdering Facility: [facility] Address: [address] [place] [address] Performed By: #### 5 7021-8 ####[facility] LABCLIA [id number] [facility] [place] [place] [address] [facility] Eosinophils (Bld) [#/Vol] 0.03 10*3/uL Normal <0.46 [facility] Comment on above: Order Comment: Speci men Type: BLOOD SPECIMENOrdering Facility: [facility] Address: [address] [place] [address] Performed By: #### 5 7021-8 ####[facility] LABCLIA [id number] [facility], [facility] Eosinophils/100 WBC (Bld) 0.3 % Normal [facility] Comment on above: Order Comment: Speci men Type: BLOOD SPECIMENOrdering Facility: [facility] Address: [address] [place] [address] Performed By: #### 5 7021-8 ####[facility] LABCLIA [id number] [facility] [place] [address] [facility] [place] Erythrocyte distribution width (RBC) [Ratio] 12.0 % Normal 11.5-15.0 [facility] Comment on above: Order Comment: Speci men Type: BLOOD SPECIMENOrdering Facility: [facility] Address: [address] [place] [address] Performed By: #### 5 7021-8 ####[facility] LABCLIA [id number] [facility] [place] [place] [address] [place] Hematocrit (Bld) [Volume fraction] 40.3 % Normal 36.0-46.0 [facility] Comment on above: Order Comment: Speci men Type: BLOOD SPECIMENOrdering Facility: [facility] Address: [address] [place] [address] Performed By: #### 5 7021-8 ####[facility] LABCLIA [id number] [facility] [place] [place] [address] [place] Hemoglobin (Bld) [Mass/Vol] 13.8 g/dL Normal 11.5-15.5 [facility] Comment on above: Order Comment: Speci men Type: BLOOD SPECIMENOrdering Facility: [facility] Address: [address] [place] [address] Performed By: #### 5 7021-8 ####[facility] [employer] LABCLIA [id number] [facility] [place] [address] [place] Lymphocytes (Bld) [#/Vol] 1.98 10*3/uL Normal 1.00-4.00 [facility] Comment on above: Order Comment: Speci men Type: BLOOD SPECIMENOrdering Facility: [facility] Address: [address] [place] [address] Performed By: #### 5 7021-8 ####[facility] [employer] LABCLIA [id number] [facility] [place] [address] [place] Lymphocytes/100 WBC (Bld) 20.3 % Normal [facility] Comment on above: Order Comment: Speci men Type: BLOOD SPECIMENOrdering Facility: [facility] Address: [address] [place] [address] Performed By: #### 5 7021-8 ####[facility] [employer] LABCLIA [id number] [facility] [place] [address] [place] MCH (RBC) [Entitic mass] 30.7 pg Normal 26.0-34.0 [facility] Comment on above: Order Comment: Speci men Type: BLOOD SPECIMENOrdering Facility: [facility] Address: [address] [place] [address] Performed By: #### 5 7021-8 ####[facility] LABCLIA [id number] [facility] [place] [address] [place] MCHC (RBC) [Mass/Vol] 34.2 g/dL Normal 30.5-36.0 [facility] Comment on above: Order Comment: Speci men Type: BLOOD SPECIMENOrdering Facility: [facility] Address: [address] [place] [address] Performed By: #### 5 7021-8 ####[facility] LABCLIA [id number] [facility] [place] [address] [place] MCV (RBC) [Entitic vol] 89.6 fL Normal 80.0-100.0 [facility] Comment on above: Order Comment: Speci men Type: BLOOD SPECIMENOrdering Facility: [facility] Address: [address] [place] [address] Performed By: #### 5 7021-8 ####[facility] LABCLIA [id number] [facility], [address] Monocytes (Bld) [#/Vol] 0.70 10*3/uL Normal <0.87 [facility] Comment on above: Order Comment: Speci men Type: BLOOD SPECIMENOrdering Facility: [facility] Address: [address] [place] [address] Performed By: #### 5 7021-8 ####[facility] LABCLIA [id number] [facility], [facility] Monocytes/100 WBC (Bld) 7.2 % Normal [facility] Comment on above: Order Comment: Speci men Type: BLOOD SPECIMENOrdering Facility: [facility] Address: [address] [place] [address] Performed By: #### 5 7021-8 ####[facility] LABCLIA [id number] [facility] [place] [address] [facility] [place] Neutrophils (Bld) [#/Vol] 7.02 10*3/uL Normal 1.45-7.50 [facility] Comment on above: Order Comment: Speci men Type: BLOOD SPECIMENOrdering Facility: [facility] Address: [address] [place] [address] Performed By: #### 5 7021-8 ####[facility] LABCLIA [id number] [place] [address] [place] Neutrophils/100 WBC (Bld) 72.1 % Normal [facility] Comment on above: Order Comment: Speci men Type: BLOOD SPECIMENOrdering Facility: [facility] Address: [address] [place] [address] Performed By: #### 5 7021-8 ####[facility] LABCLIA [id number] [place] [address] [place] Platelet mean volume (Bld) [Entitic vol] 9.7 fL Normal 9.0-12.7 [facility] Comment on above: Order Comment: Speci men Type: BLOOD SPECIMENOrdering Facility: [facility] Address: [address] [place] [address] Performed By: #### 5 7021-8 ####[facility] LABCLIA [id number] [place] [facility] [place] [address] [place] Platelets (Bld) [#/Vol] 251 10*3/uL Normal 150-400 [facility] Comment on above: Order Comment: Speci men Type: BLOOD SPECIMENOrdering Facility: [facility] Address: [address] [place] [address] Performed By: #### 5 7021-8 ####[facility] LABCLIA [id number] [place] [address] [place] RBC (Bld) [#/Vol] 4.50 10*6/uL Normal 3.90-5.20 [facility] Comment on above: Order Comment: Speci men Type: BLOOD SPECIMENOrdering Facility: [facility] Address: [address] [place] [address] Performed By: #### 5 7021-8 ####[facility] LABCLIA [id number] [place] [address] [facility] WBC (Bld) [#/Vol] 9.74 10*3/uL Normal 3.70-11.00 [facility] Comment on above: Order Comment: Speci men Type: BLOOD SPECIMENOrdering Facility: [facility] Address: [address] [place], [place] [address] [id number] Performed By: #### 5 7021-8 ####[facility] LABCLIA [id number] [place] [address] [facility] OF [place] CT ABD/PEL W IVCONon 022 CT ABD/PEL W IVCON * * *Final Report* * * DATE OF EXAM: Dec 31 2021 7:25PM [facility] 0530 - CT ABD/PEL W IVCON [...] Tissues: No significant finding. Lower thorax: Unremarkable. Gear Keeper (topogram) images: No additional findings. IMPRESSION: No acute abnormality Atrophic left kidney with cortical scarring and suspected small nonobstructing calculi. Findings may be related to chronic reflux disease or infection Hepatic steatosis Renewals Manager: CAROLA Transcribe Date/Time: Dec 31 2021 7:37P Dictated by : DIYA FUENTES MD This examination was interpreted and the report reviewed and electronically signed by: DIYA FUENTES MD on Dec 31 2021 7:42PM EST [id number] N Normal [facility] Comprehensive metabolic 2000 panelon 12-31-2021 Albumin [Mass/Vol] 4.0 g/dL Normal 3.4-5.0 [facility] Comment on above: Order Comment: Speci men Type: BLOOD SPECIMENOrdering Facility: [facility] Address: [address] [place] [address] Performed By: #### 2 4323-8, ####[facility] [employer] LABCLIA [id number] [place] [address] [place] ALP [Catalytic activity/Vol] 74 U/L Normal 46-116 [facility] Comment on above: Order Comment: Speci men Type: BLOOD SPECIMENOrdering Facility: [facility] Address: [address] [address] Performed By: #### 2 4323-8, ####[employer] LABCLIA [id number] [place] [address] [place] ALT With P-5'-P [Catalytic activity/Vol] 55 U/L Normal 12-78 [facility] Comment on above: Order Comment: Speci men Type: BLOOD SPECIMENOrdering Facility: [facility] Address: [address] [address] Performed By: #### 2 432-8, ####[facility] LABCLIA [id number] [place] [address] [place] Anion gap [Moles/Vol] 2 mmol/L Low 8-16 [facility] Comment on above: Order Comment: Speci men Type: BLOOD SPECIMENOrdering Facility: [facility] Address: [address] [place] [address] Performed By: #### 2 8, ####[facility] LABCLIA [id number] [place] [address] [place] AST With P-5'-P [Catalytic activity/Vol] 29 U/L Normal 15-46 [facility] Comment on above: Order Comment: Speci men Type: BLOOD SPECIMENOrdering Facility: [facility] Address: [address] [place] [address] Result Comment: Spec imen slightly hemolyzed. Performed By: #### 2 4323-05, ####[facility] LABCLIA [id number] [place] [address] [place] Bilirubin [Mass/Vol] 0.2 mg/dL Normal 0.2-1.0 [facility] Comment on above: Order Comment: Speci men Type: BLOOD SPECIMENOrdering Facility: [facility] Address: [address] [place], [place] [address] Performed By: #### 2 8, ####[facility] LABCLIA [id number] [place] [address] [place] Calcium [Mass/Vol] 9.1 mg/dL Normal 8.5-10.1 [facility] Comment on above: Order Comment: Speci men Type: BLOOD SPECIMENOrdering Facility: [facility] Address: [address] [place], [place] [address] Performed By: #### 2 4328, ####[facility] LABCLIA [id number] [place] [address] [place] Chloride [Moles/Vol] 100 mmol/L Normal 98-107 [facility] Comment on above: Order Comment: Speci men Type: BLOOD SPECIMENOrdering Facility: [facility] Address: [address] [place] [address] Performed By: #### 2 4323-8, ####[facility] LABCLIA [id number] [facility] [place] [address] [place] CO2 [Moles/Vol] 33 mmol/L High 21-32 [facility] Comment on above: Order Comment: Speci men Type: BLOOD SPECIMENOrdering Facility: [facility] Address: [address] [place] [address] Performed By: #### 2 4323-8, ####[facility] LABCLIA [id number] [place] [address] [place] OF [facility] Creatinine [Mass/Vol] 0.78 mg/dL Normal 0.51-0.95 [facility] Comment on above: Order Comment: Speci men Type: BLOOD SPECIMENOrdering Facility: [facility] Address: [address] [place] [address] Performed By: #### 2 4323-8, ####[facility] LABCLIA [id number] [facility] [place] [address] [facility] ESTIMATED GLOMERULAR FILTRATION RATE 110 mL/min/1.73m??? Normal >=60 [facility] Comment on above: Order Comment: Speci men Type: BLOOD SPECIMENOrdering Facility: [facility] Address: [address] [place] [address] Result Comment: Tierra mated Glomerular Filtration Rate [...] actual GFR. Performed By: #### 2 4323-8, ####[facility] [employer] LABCLIA [id number] [place] [address] [place] Glucose [Mass/Vol] 94 mg/dL Normal 70-99 [facility] Comment on above: Order Comment: Speci men Type: BLOOD SPECIMENOrdering Facility: [facility] Address: [address] [place] [address] Result Comment: The [place] [employer] (ADA) provides guidance for cutoff [...] Standards of Medical Care in Diabetes 2016, [place] [employer]. Diabetes Care. 2016.39(Suppl 1). Performed By: #### 2 4323-8, 02541-9 ####[employer] [facility] [employer] LABCLIA [id number] [place] [address] [place] Potassium [Moles/Vol] 3.6 mmol/L Normal 3.5-5.1 [facility] Comment on above: Order Comment: Speci men Type: BLOOD SPECIMENOrdering Facility: [facility] Address: [address] [place] [address] Result Comment: Spec imen slightly hemolyzed. Performed By: #### 2 4323-8, ####[facility] [employer] LABCLIA [id number] [place] [address] [place] Protein [Mass/Vol] 7.7 g/dL Normal 6.4-8.2 [facility] Comment on above: Order Comment: Speci men Type: BLOOD SPECIMENOrdering Facility: [facility] Address: [address] [place] [address] Performed By: #### 2 4323-8, ####[facility] LABCLIA [id number] [facility] [place] [address] [place] Sodium [Moles/Vol] 135 mmol/L Low 136-145 [facility] Comment on above: Order Comment: Speci men Type: BLOOD SPECIMENOrdering Facility: [facility] Address: [address] [place], [place] [address] Performed By: #### 2 4323-8, ####[facility] LABCLIA [id number] [facility] [place] [address] [place] Urea nitrogen [Mass/Vol] 10 mg/dL Normal 7-18 [facility] Comment on above: Order Comment: Speci men Type: BLOOD SPECIMENOrdering Facility: [facility] Address: [address] [place] [address] Performed By: #### 2 4323-8, ####[facility] LABCLIA [id number] [facility] [place] [address] [facility] ED NOTEon 12-31-2021 ED NOTE HNO ID: [id number] Author: Amy Pena RN Service: Emergency Medicine Author Type: Registered Nurse Type: ED Notes Filed: 12/31/2021 7:03 PM Note Text: Patient resting in room. Patient updated on the plan of care. Bed in low locked position. Call light in reach. Monitoring maintained. Safety and comfort care maintained. Normal [facility] ED NOTE HNO ID: [id number] Author: Amy Pena RN Service: Emergency Medicine Author Type: Registered Nurse Type: ED Notes Filed: 12/31/2021 6:34 PM Note Text: Patient resting in room. Patient updated on the plan of care. Bed in low locked position. Call light in reach. Monitoring maintained. Safety and comfort care maintained. [facility] ED NOTE HNO ID: [id number] Author: Amy Pena RN Service: Emergency Medicine Author Type: Registered Nurse Type: ED Notes Filed: 12/31/2021 5:20 PM Note Text: Patient resting in room. Patient updated on the plan of care. Bed in low locked position. Call light in reach. Monitoring maintained. Safety and comfort care maintained. Normal [facility] ED NOTE HNO ID: [id number] Author: Amy Pena RN Service: Emergency Medicine Author Type: Registered Nurse Type: ED Notes Filed: 12/31/2021 4:55 PM Note Text: Patient updated on the plan of care. Patient medicated per order. Allergies reviewed. Patient verbalized understanding. 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 Emesis x 1 today. Normal BM today. Pt denies dysuria or hematuria. Hx of kidney stone and UTI Normal [facility] ED PROV NOTEon 12-31-2021 ED PROV NOTE HNO ID: [id number] Author: Mary Pereira DO Service: Emergency Medicine [...] (more content not included)... Normal [facility] ED PROV NOTE HNO ID: [id number] Author: Jayde Yeager MD Service: Emergency Medicine [...] Jayde Yeager MD 12/31/212020 Normal [facility] HCG Preg Ur Qlon 12-31-2021 HCG ( test) Ql (U) Negative Normal Negative [facility] Comment on above: Order Comment: Speci men Type: URINE SPECIMENOrdering Facility: [facility] Address: [address] [place] [address], [place] [address] Result Comment: This test is intended to aid in the early detection of . Very dilute urine samples, as indicated by a low specific gravity, may not contain small business representative levels of hCG. This test detects [...] for . Performed By: #### 2 106-3 ####[facility] LABCLIA [id number] [place] [address] [place] Magnesium SerPl-mCncon 12-31 Magnesium [Mass/Vol] 1.9 mg/dL Normal 1.6-2.3 [facility] Comment on above: Order Comment: Speci men Type: BLOOD SPECIMENOrdering Facility: [facility] Address: [place] [address] Performed By: #### 2 4323-8, 74294-5 ####[facility] LABCLIA [id number] [place] [address] [place] US DOPPLER COMPLETEon [...] to body habitus. 4. No free fluid. Renewals Manager: PSCB Transcribe Date/Time: Dec 31 2021 6:24P Dictated by : KAITY SHAY MD This examination was interpreted and the report reviewed and electronically signed by: KAITY SHAY MD on Dec 31 2021 6:28PM EST [id number] N Normal [facility] US FEMALE PELVIS TRANSABD LT [...] to body habitus. 4. No free fluid. Renewals Manager: CAROLA Transcribe Date/Time: Dec 31 2021 6:24P Dictated by : KAITY SHAY MD This examination was interpreted and the report reviewed and electronically signed by: KAITY SHAY MD on Dec 31 2021 6:28PM EST [id number] N Normal [facility] US FEMALE PELVIS TRANSVAGon 12-31-2021 [...] to body habitus. 4. No free fluid. Renewals Manager: [facility] Transcribe Date/Time: Dec 31 2021 6:24P Dictated by : KAITY SHAY MD This examination was interpreted and the report reviewed and electronically signed by: KAITY SHAY MD on Dec 31 2021 6:28PM EST [id number] N Normal [facility] Urinalysis complete panel (U )on 12-31-2021 Bacteria LM.HPF (Urine sed) [#/Area] Many Abnormal None Seen [facility] Comment on above: Order Comment: Speci men Type: URINE SPECIMENOrdering Facility: [facility] Address: [address] [place] [address] Performed By: #### 2 4356-8 ####[facility] [employer] LABCLIA [id number] [address] STATES OF [facility] Bilirubin Ql (U) Negative Normal Negative [facility] Comment on above: Order Comment: Speci men Type: URINE SPECIMENOrdering Facility: [facility] Address: [address] [address] Performed By: #### 2 4356-8 ####[facility] LABCLIA [id number] [place] [id number] [place] Clarity (Unsp spec) Clear Normal Clear [facility] Comment on above: Order Comment: Speci men Type: URINE SPECIMENOrdering Facility: [facility] Address: [address] [place] [address] Performed By: #### 2 4356-8 ####[facility] LABCLIA [id number] [facility] [place] [address] [place] Color (U) Yellow Normal Yellow [facility] Comment on above: Order Comment: Speci men Type: URINE SPECIMENOrdering Facility: [facility] Address: [address] [place] [address] Performed By: #### 2 4356-8 ####[facility] LABCLIA [id number] [facility] [place] [address] [facility] Epithelial cells LM.HPF (Urine sed) [#/Area] Many Normal [facility] Comment on above: Order Comment: Speci men Type: URINE SPECIMENOrdering Facility: [facility] Address: [address] [place] [address] Performed By: #### 2 4356-8 ####[facility] LABCLIA [id number] [facility] [place] [address] [facility] Glucose Test strip (U) [Mass/Vol] Negative Normal Negative [facility] Comment on above: Order Comment: Speci men Type: URINE SPECIMENOrdering Facility: [facility] Address: [address] [place] [address] Performed By: #### 2 4356-8 ####[facility] LABCLIA [id number] [facility] [place] [address] [place] [place] Hemoglobin Ql (U) 2+ Abnormal Negative [facility] Comment on above: Order Comment: Speci men Type: URINE SPECIMENOrdering Facility: [facility] Address: [address] [place] [address] Performed By: #### 2 4356-8 ####[facility] LABCLIA [id number] [facility] [place] [address] [place] Ketones Ql (U) Negative Normal Negative [facility] Comment on above: Order Comment: Speci men Type: URINE SPECIMENOrdering Facility: [facility] Address: [address] [place] [address] Performed By: #### 2 4356-8 ####[facility] LABCLIA [id number] [facility] [place] [place] [address] [facility] [place] Leukocyte esterase Test strip Ql (U) Trace Abnormal Negative [facility] Comment on above: Order Comment: Speci men Type: URINE SPECIMENOrdering Facility: [facility] Address: [address] [place] [address] Performed By: #### 2 4356-8 ####[facility] LABCLIA [id number] [facility] [place] [place] [address] [place] Nitrite Ql (U) Negative Normal Negative [facility] Comment on above: Order Comment: Speci men Type: URINE SPECIMENOrdering Facility: [facility] Address: [address] [place] [address] Performed By: #### 2 4356-8 ####[facility] LABCLIA [id number] [facility] [place] [address] [place] pH (U) 6.0 [pH] Normal 5.0-8.0 [facility] Comment on above: Order Comment: Speci men Type: URINE SPECIMENOrdering Facility: [facility] Address: [address] [place] [address] Performed By: #### 2 4356-8 ####[facility] LABCLIA [id number] [facility] [place] [address] [place] Protein (U) [Mass/Vol] Normal [facility] Comment on above: Order Comment: Speci men Type: URINE SPECIMENOrdering Facility: [facility] Address: [address] [place] [address] Result Comment: Visi ble blood causes falsely elevated results for analyte Protein. Due to this limitation, Protein will not be reported for patients whose urine contains visible blood. Performed By: #### 2 4356-8 ####[facility] LABCLIA [id number] [place] [address] [place] [facility] RBC LM.HPF (Urine sed) [#/Area] 11-25 /HPF Abnormal 0-3 /HPF [facility] Comment on above: Order Comment: Speci men Type: URINE SPECIMENOrdering Facility: [facility] Address: [address] [place] [address] Performed By: #### 2 4356-8 ####[facility] LABCLIA [id number] [place] [address] [facility] Specific gravity (U) [Rel density] >=1.030 High 1.005-1.030 [facility] Comment on above: Order Comment: Speci men Type: URINE SPECIMENOrdering Facility: [facility] Address: [address] [place] [address] Performed By: #### 2 4356-8 ####[facility] LABCLIA [id number] [address] Urobilinogen Ql (U) 0.2 EU/dL Normal 0.2-1.0 EU/dL [facility] Comment on above: Order Comment: Speci men Type: URINE SPECIMENOrdering Facility: [facility] Address: [address] [place] [address] Performed By: #### 2 4356-8 ####[facility] LABCLIA [id number] [place] [id number] [facility] WBC LM.HPF (Urine sed) [#/Area] 6-10 /HPF Abnormal 0-5 /HPF [facility] Comment on above: Order Comment: Speci men Type: URINE SPECIMENOrdering Facility: [facility] Address: [address] [place] [address] Performed By: #### 2 4356-8 ####[facility] LABCLIA [id number] [place] [address] [facility] COVID 19, [facility](RT COLLECT )on 03-17-2021 SARS-CoV-2 (COVID-19) RNA CHICHO+probe Ql (Unsp spec) Not detected Normal Not Detect [facility] Comment on above: Result Comment: Norm al Reference Range: Not Detected Method:(RT-PCR) real-time reverse transcriptase PCR Luminex Flint Instrument *The Food and Drug Administration (FDA) has issued an Emergency Use Authorization (EAU) for the Flint SARS-CoV-2 Assay for the rapid detection of [...] exposure. Performed By: #### L 3400.2405 #### [facility] [address] [place], [address] HAND RIGHT COMPLETEon 2020 HAND RIGHT COMPLETE EXAM: Right hand HISTORY: Pain after shutting a door on the hand on 01/27/2021. TECHNIQUE: 3 views of the right hand were obtained. FINDINGS: There is no evidence of fracture or dislocation. There are no suspicious bone lesions. Soft tissues are normal. IMPRESSION: No acute findings. Normal [facility] BASIC METABOLIC PANELon 01-0 Anion gap [Moles/Vol] 13 mmol/L Normal 10 - 20 [facility] Comment on above: Performed By: #### B MP #### [address] [address] Calcium [Mass/Vol] 9.5 mg/dL Normal 8.6 - 10.3 [facility] Comment on above: Performed By: #### B MP #### [address] [address] Chloride [Moles/Vol] 104 mmol/L Normal 98 - 107 [facility] Comment on above: Performed By: #### B MP #### [address] [address] Creatinine [Mass/Vol] 0.76 mg/dL Normal 0.50 - 1.05 [facility] Comment on above: Performed By: #### B MP #### [address] [address] GFR- AM. >60 Normal >[address] [facility] Comment on above: Result Comment: CALC ULATIONS OF ESTIMATED GFR ARE PERFORMED USING THE MDRD STUDY EQUATION FOR THE IDMS-TRACEABLE CREATININE METHODS. CLIN CHEM 2007;53:766-72 Performed By: #### B MP #### [address] [address] GFR-NON AM. >60 Normal >60 [facility] Comment on above: Performed By: #### B MP #### [address] [address] Glucose [Mass/Vol] 88 mg/dL Normal 74 - 99 [facility] Comment on above: Performed By: #### B MP #### [address] [address] HCO3 (Bld) [Moles/Vol] 27 mmol/L Normal 21 - [address] [facility] Comment on above: Performed By: #### B MP #### [address] [address] Potassium [Moles/Vol] 3.8 mmol/L Normal 3.5 - 5.3 [facility] Comment on above: Performed By: #### B MP #### [address] [address] Sodium [Moles/Vol] 140 mmol/L Normal 136 - 145 [facility] Comment on above: Performed By: #### B MP #### [address] [address] Urea nitrogen [Mass/Vol] 11 mg/dL Normal 6 - [address] [facility] Comment on above: Performed By: #### B MP #### [address] [address] CBCon 10-17-2019 Erythrocyte distribution width (RBC) [Ratio] 12.5 % Normal 11.5 - 14.[address] [facility] Comment on above: Performed By: #### C BC #### [address] [address] Hematocrit (Bld) [Volume fraction] 42.6 % Normal 36.0 - 46.[address] [facility] Comment on above: Performed By: #### C BC #### [address] [address] Hemoglobin (Bld) [Mass/Vol] 14.5 g/dL Normal 12.0 - 16.[address] [facility] Comment on above: Performed By: #### C BC #### [address] [address] MCHC (RBC) [Mass/Vol] 34.1 g/dL Normal 32.0 - 36.0 [facility] Comment on above: Performed By: #### C BC #### [address] [address] MCV (RBC) [Entitic vol] 91 fL Normal 80 - [address] [facility] Comment on above: Performed By: #### C BC #### [address] [address] Platelets (Bld) [#/Vol] 270 10*3/uL Normal 150 - [address] [facility] Comment on above: Performed By: #### C BC #### [address] [address] RBC (Bld) [#/Vol] 4.67 x10E12/L Normal 4.00 - 5.20 [facility] Comment on above: Performed By: #### C BC #### [address] [address] WBC (Bld) [#/Vol] 8.2 10*3/uL Normal 4.4 - 11.3 [facility] Comment on above: Performed By: #### C BC #### [address] [address] [address] HEAD WO CONTRASTon 2019 CT HEAD WO CONTRAST Patient Name: BIBI, LUZ STUDY: CT of the head without contrast INDICATION: dizzy/trauma COMPARISON: None ACCESSION NUMBER(S): [id number] ORDERING CLINICIAN: RASHMI FERRERA TECHNIQUE: A CT [...] Electronically signed by: LILI MONTEIRO MD Normal [facility] HCG,URINEon 10-17-2019 Beta HCG ( test) Ql (U) Negative Normal Negative 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 Patient states she believes she has a [...] made to minimize errors. Minor errors in methods specialist engineer may be present. Please call if questions. 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: Is : no(1) Is : no(1) RESULTS/VITAL [...] at 10/17/2019 01:39 Appearance, Urine CLEAR Specific Bighorn, Urine 1.021 pH, Urine 7.0 Protein, Urine [...] SIGNS: T PRBP SpO2O2(LPM) %FiO2 Method 17-Oct-2019 01:27:00-4886200/80 100 room air, no respiratory support 16-Oct-2019 22:16:[id number] /78 99 room air, no respiratory support 16-Oct-2019 22:00:[id number] /78 99 room air, no respiratory support [...] Referenced From Triage - ED 16-Oct-2019 22:16 [facility] Risk Screen - Adult Emergenc yon [...] instruction; written material Cultural Considerationsnone Developmental Considerationsnone Mandaeism Considerationsnone Other Learnerssignificant other Learning Assessment (Other Learner): Learning Assessment (Other Learner): Other learner availableyes... Learnersignificant other Factors Influencing Readiness to Learninterest in learning Factors that Impact Ability to Learnnone Devices/Methods Used to Communicatenone Learning Preferencesverbal instruction, written material Cultural Considerationsnone Developmental Considerationsnone Mandaeism Considerationsnone Pressure Injury/TB/Substance: Pressure Injury: Do you have a coughno Substance Use Current or Former Historynever: Cigarette/Tobacco, e-Cigarette/Vaping, Alcohol, Street Drugs Admission Risk Screen: Significant IndicatorsComplete CAGE: CAGE: Is this an injured patient at a Trauma Center ([facility]/[place]/[facility]): no Electronic Signatures: Lisette Junior (RN) (Signed 16-Oct-2019 22:23) Authored: Preferred Language, Advanced Directives, Family Violence Adult, Learning Assessment (Patient), Learning Assessment (Other Learner), Pressure Injury/TB/Substance, CAGE Last Updated: 16-Oct-2019 22:23 by Lisette Junior (RN) [facility] Triage - EDon 10-17-2019 Triage - [...] BMI (kg/m2): 29.674 Calculated BSA (m2) 1.75 [place] Coma Scale: Best Eye Response: (E4) spontaneous Best Motor Response: (M6) obeys commands Best Verbal Response: (V5) oriented Amador Score: 15 Cough lasting greater than 3 weeks: no Patient immunocompromised related to: N/A Travel outside of [facility]: no Allergies: yes Last menstrual [...] and spouse/significant other Language: Spoken Language Preferred: Cymraes Reading Language Preferred: Cymraes Hand Cigar Making Supervisor Requested: no data quality consultant was requested MDRO: History of MDRO: no [...] 16-Oct-2019 22:22 by Lisette Junior (RN) Normal [facility] UA MICROSCOPICon 10-17-2019 BACTERIA 1+ /HPF Abnormal [facility] Comment on above: Performed By: #### U AMIC #### [place] [address] MUCUS 1+ /LPF Normal [facility] Comment on above: Performed By: #### U AMIC #### [place] [address] RBC (Bld) [#/Vol] 0-5 Normal 0-5 [facility] Comment on above: Performed By: #### U AMIC #### [place] [address] SQUAMOUS EPITH. CELLS 1+ /HPF Normal [facility] Comment on above: Performed By: #### U AMIC #### [place] [address] TRANSITIONAL EPITH.CELLS Negative Normal [facility] Comment on above: Performed By: #### U AMIC #### [place] [address] WBC (Bld) [#/Vol] 5-20 Abnormal 0-5 [facility] Comment on above: Performed By: #### U AMIC #### [place] [address] URINALYSISon 10-17-2019 Appearance (U) CLEAR Normal CLEAR [facility] Comment on above: Result Comment: This is a corrected result. Previous value was HAZY, verified at 10/17/2019 01:39 Performed By: #### U A #### [address] [address] Color (U) YELLOW Normal STRAW,YELLOW [facility] Comment on above: Result Comment: This is a corrected result. Previous value was Red, verified at 10/17/2019 01:39 Performed By: #### U A #### [address] [address] Bilirubin (U) [Mass/Vol] Negative Normal NEGATIVE [facility] Comment on above: Performed By: #### U A #### [place] [id number] BLOOD SMALL(1+) Abnormal NEGATIVE [facility] Comment on above: Performed By: #### U A #### [place] [address] Glucose [Mass/Vol] Negative Normal NEGATIVE [facility] Comment on above: Performed By: #### U A #### [place] [address] Ketones Ql (U) Negative Normal NEGATIVE [facility] Comment on above: Performed By: #### U A #### [place] [address] Leukocyte esterase Test strip Ql (U) TRACE Abnormal NEGATIVE [facility] Comment on above: Performed By: #### U A #### [address] [address] Nitrite Ql (U) Negative Normal NEGATIVE [facility] Comment on above: Performed By: #### U A #### [place] [id number] pH (Bld) 7.0 Normal 5.0 - 8.[address] [facility] Comment on above: Performed By: #### U A #### [place] [address] Protein (U) [Mass/Vol] Negative Normal NEGATIVE [facility] Comment on above: Performed By: #### U A #### [place] [address] Specific gravity (U) [Rel density] 1.021 Normal 1.005 - 1.[address] [facility] Comment on above: Performed By: #### U A #### [address] [address] Urobilinogen Qn (U) <2.0 Normal 0.0 - 1.9 [facility] Comment on above: Performed By: #### U A #### [address] [address] URINE CULTURE,BACTERIALon URINE CULTURE,BACTERIAL TEST URINE CULTURE,BACTERIAL WAS CANCELLED, 10/19/2019 16:21 PATIENT DISCHARGED. PATIENT: LUZ MTZ LOCATION: [facility]#: [id number] : 89 AGE: SEX: F ORDERED BY: RASHMI FERRERA SOURCE: URINE COLLECTED: 10/17/19 02:24 ANTIBIOTICS AT JAMIE.: RECEIVED : SITE: Clean Catch/Voided R E S U L T S URINE CULTURE,BACTERIAL CANCELLED 10/19/19 16:[address] [facility] Comment on above: Performed By: #### U [facility] #### [facility] [address] [place] [address] XR Foot 3+ Views Righton XR Foot 3+ Views Right Exam Date/Time: 04/28/2019 13:58 EDT Reason for Exam: Pain, Traumatic Report STUDY: XR Foot 3+ Views Right;; 04/28/2019 1:58 pm INDICATION: Pain, Traumatic. COMPARISON: None. ACCESSION NUMBER(S): [id number] ORDERING CLINICIAN: Alex Grubbs FINDINGS: No acute fracture or malalignment. No radiopaque foreign body. IMPRESSION: No acute osseous abnormality FINAL REPORT Dictated: 04/28/2019 2:30 pm Nancy Mills MD Signed (Electronic Signature): 04/28/2019 2:30 pm Signed by: Nancy Mills MD Technologist: JOHNSON Normal [facility] ABO/Rh Echoon 12-25-2018 ABO/Rh E Interp... Positive [facility] Comment on above: Performed By: #### 2 [id number] #### [facility] [address] [place] [address] BhCG Quanton 12-25-2018 Beta hCG Qnt <0.6 Normal 0.0-2.9 [facility] Comment on above: Performed By: #### 2 559642 #### [facility] [address] [place] [address] UA Completeon 12-25-2018 Color (U) Yellow Normal Yellow [facility] Comment on above: Performed By: #### 2 [id number] #### [facility] [address] [place] [address] Glucose (U) [Mass/Vol] Negative Normal Negative [facility] Comment on above: Performed By: #### 2 322512 #### [facility] [place] [address] Ketones Ql (U) Negative Normal Negative [facility] Comment on above: Performed By: #### 2 941891 #### [facility] [address] [place] [address] RBC (U) [#/Vol] /uL Abnormal 0-3 [facility] Comment on above: Performed By: #### 2 580094 #### [facility] [address] [place] [address] UA Blood 3+ Normal Negative [facility] Comment on above: Performed By: #### 2 884861 #### [facility] [address] [place] [address] UA Bacteria Trace Abnormal None [facility] Comment on above: Performed By: #### 2 451763 #### [facility] [address] [place] [address] UA Clarity Clear Normal Clear [facility] Comment on above: Performed By: #### 2 228824 #### [facility] [address] [place] [address] UA Leuk Est Negative Normal Negative [facility] Comment on above: Performed By: #### 2 171365 #### [facility] [address] [place] [address] UA Mucous Trace Abnormal Trace [facility] Comment on above: Performed By: #### 2 221961 #### [facility] [address] [place] [address] UA Nitrite Negative Normal Negative [facility] Comment on above: Performed By: #### 2 524318 #### [facility] [address] [place] [address] UA pH 8.0 Normal 4.6-8.0 [facility] Comment on above: Performed By: #### 2 849282 #### [facility] [address] [place] [address] UA Protein Negative Normal Negative [facility] Comment on above: Performed By: #### 2 108989 #### [facility] [address] [place] [address] UA Spec Grav 1.012 Normal 1.003-1.030 [facility] Comment on above: Performed By: #### 2 792969 #### [facility] [address] [place] [address] UA Squam Epithelial 0-5 Normal 0-5 [facility] Comment on above: Performed By: #### 2 643811 #### [facility] [address] [place] [address] UA Urobilinogen Negative Normal [facility] Comment on above: Result Comment: Due to a manufacturing issue, low positive urobilinogen results may be fasely positive. Correlate with urine bilirubin and additional clinical/laboratory findings to assess the risk of hemolytic anemia or liver disease. If clinically indicated, repeat testing with an alternate method is available by contacting the laboratory within 24 hours. Performed By: #### 2 000663 #### [facility] [address] [place] [address] UA WBC 5-10 Abnormal 0-5 [facility] Comment on above: Performed By: #### 2 648401 #### [facility] [address] [place] [address] Urobilinogen Qn (U) Negative Normal Negative [facility] Comment on above: Performed By: #### 2 641575 #### [facility] [address] [place] [address] C Urineon 09-05-2018 C Urine Final Report: Light growth of Normal skin den isolated Normal [facility] Comment on above: Performed By: #### 2 154913 #### [facility] [address] [place] [address] .Manual Abson 09-03-2018 Basophil Abs Man 0.0 10x3/ Normal 0.0-0.2 [facility] Comment on above: Order Comment: Order Added by Discern Expert. Performed By: #### 3 [id number] #### [facility] [address] [place] [address] Eos Abs Man 0.0 10x3/ Normal 0.0-0.5 [facility] Comment on above: Order Comment: Order Added by Discern Expert. Performed By: #### 3 [id number] #### [facility] [address] [place] [address] Lymph Abs Man 0.5 10x3/ Low 1.2-3.4 [facility] Comment on above: Order Comment: Order Added by Discern Expert. Performed By: #### 3 [id number] #### [facility] [address] [place] [address] [place] Abs Man 0.4 10x3/ Normal 0.0-0.7 [facility] Comment on above: Order Comment: Order Added by Discern Expert. Performed By: #### 3 [id number] #### [facility] [address] [place] [address] Segs Abs Man 7.8 10x3/ High 1.4-6.5 [facility] Comment on above: Order Comment: Order Added by Discern Expert. Performed By: #### 3 [id number] #### [facility] [address] [place] 6169805 BMPon 09-03-2018 Anion gap [Moles/Vol] 14 mmol/L Normal 10-20 [facility] Comment on above: Performed By: #### 2 910268 #### [facility] [address] [place] [address] Calcium [Mass/Vol] 8.8 mg/dL Normal 8.5-10.7 [facility] Comment on above: Performed By: #### 2 240586 #### [facility] [place] [address] Chloride [Moles/Vol] 102 mmol/L Normal 98-107 [facility] Comment on above: Performed By: #### 2 920237 #### [facility] [address] [place] [address] CO2 [Moles/Vol] 24.0 mmol/L Normal 21.0-32.0 [facility] Comment on above: Performed By: #### 2 245023 #### [facility] [address] [place] [address] Creatinine [Mass/Vol] 0.8 mg/dL Normal 0.5-1.1 [facility] Comment on above: Performed By: #### 2 633355 #### [facility] [address] [place] [address] Glucose [Mass/Vol] 100 mg/dL High 70-99 [facility] Comment on above: Performed By: #### 2 981297 #### [facility] [address] [place] [address] Potassium [Moles/Vol] 3.2 mmol/L Low 3.5-5.3 [facility] Comment on above: Performed By: #### 2 243712 #### [facility] [address] [place] [address] Sodium [Moles/Vol] 137 mmol/L Normal 136-145 [facility] Comment on above: Performed By: #### 2 872127 #### [facility] [address] [place] [address] Urea nitrogen [Mass/Vol] 11 mg/dL Normal 6-23 [facility] Comment on above: Performed By: #### 2 957147 #### [facility] [address] [place] [address] Urea nitrogen/Creatinine [Mass ratio] 13.8 ratio Normal 5.4-30.0 [facility] Comment on above: Performed By: #### 2 201157 #### [facility] [address] [place] [address] CBC w/ Auto Diffon 8 Erythrocyte distribution width (RBC) [Ratio] 13.0 % Normal 11.5-14.5 [facility] Comment on above: Performed By: #### 2 712127 #### [facility] [address] [place] [address] Hematocrit (Bld) [Volume fraction] 37.2 % Normal 36.0-48.0 [facility] Comment on above: Performed By: #### 2 743388 #### [facility] [address] [place] [address] Hemoglobin (Bld) [Mass/Vol] 12.7 g/dL Normal 12.0-16.0 [facility] Comment on above: Performed By: #### 2 059549 #### [facility] [address] [place] [address] MCH (RBC) [Entitic mass] 31.2 pg High 27.0-31.0 [facility] Comment on above: Performed By: #### 2 610686 #### [facility] [address] [place] [address] MCHC (RBC) [Mass/Vol] 34.2 g/dL Normal 33.0-37.0 [facility] Comment on above: Performed By: #### 2 882976 #### [facility] [address] [place] [address] MCV (RBC) [Entitic vol] 91.4 fL Normal 78.0-100.0 [facility] Comment on above: Performed By: #### 2 267328 #### [facility] [address] [place] [address] Platelet mean volume (Bld) [Entitic vol] 8.2 fL Normal 7.4-11.0 [facility] Comment on above: Performed By: #### 2 010243 #### [facility] [address] [place] [address] Platelets (Bld) [#/Vol] 201 E3/mcL Normal 130-400 [facility] Comment on above: Performed By: #### 2 335108 #### [facility] [address] [place] [address] RBC (Bld) [#/Vol] 4.07 E6/mcL Normal 3.90-5.40 [facility] Comment on above: Performed By: #### 2 390113 #### [facility] [address] [place] [address] WBC (Bld) [#/Vol] 8.9 E3/mcL Normal 3.6-11.0 [facility] Comment on above: Performed By: #### 2 [id number] #### KOBY MckeonHemo [address] [place] [address] CT Abdomen/Pelvis w/ Contras ton 09-03-2018 CT Abdomen/Pelvis w/ Contrast Exam Date/Time: 09/03/2018 21:35 EST Reason for Exam: Pain Report STUDY: CT Abdomen/Pelvis w/ Contrast; 09/03/2018 9:35 pm INDICATION: Pain. Pain COMPARISON: No comparison available ACCESSION NUMBER(S): [id number] ORDERING CLINICIAN: Miles Horn TECHNIQUE: CT of [...] by: Joaquin Lobo MD Technologist: JOHN, Paul [facility] Hep Func Panelon 09-03-2018 Albumin [Mass/Vol] 4.3 g/dL Normal 3.4-5.0 [facility] Comment on above: Performed By: #### 2 [id number] #### [address] [place] [address] Albumin/Globulin [Mass ratio] 1.7 {ratio} Normal 1.1-1.9 [facility] Comment on above: Performed By: #### 2 [id number] #### KOBY MckeonChem [address] [place] [address] Alk Phos 59 Int._Unit/L Normal 33-139 [facility] Comment on above: Performed By: #### 2 [id number] #### [facility] [address] [place] [address] ALT [Catalytic activity/Vol] 18 Int._Unit/L Normal 7-45 [facility] Comment on above: Performed By: #### 2 [id number] #### [facility] [address] [place] [address] AST [Catalytic activity/Vol] 18 Int._Unit/L Normal 9-39 [facility] Comment on above: Performed By: #### 2 [id number] #### KOBY Rem[facility] [address] [place] [address] Bili Direct 0.16 mg/dL Normal 0.00-0.30 [facility] Comment on above: Performed By: #### 2 [id number] #### KOBY [facility] [address] [place] [address] Bili Indirect 0.7 Normal [facility] Comment on above: Performed By: #### 2 [id number] #### KOBY [facility] [address] [place] [address] Bili Total 0.9 mg/dL Normal 0.0-1.2 [facility] Comment on above: Performed By: #### 2 [id number] #### [facility] [address] [place] [address] Globulin (S) [Mass/Vol] 3.0 g/dL Normal 2.0-4.0 [facility] Comment on above: Performed By: #### 2 [id number] #### [address] [place] [address] Protein [Mass/Vol] 6.8 g/dL Normal 6.4-8.2 [facility] Comment on above: Performed By: #### 2 [id number] #### KOBY MckeonChem [address] [place] [address] Influenza A&B Agon 8 Influenzae A Ag Negative Normal Negative [facility] Comment on above: Performed By: #### 2 [id number] #### KOBY Mcke[address] [address] Influenzae B Ag Negative Normal Negative [facility] Comment on above: Performed By: #### 2 [id number] #### KOBY [address] [address] Lactic Acidon 09-03-2018 Lactate [Moles/Vol] 0.8 mmol/L Normal 0.4-2.0 [facility] Comment on above: Performed By: #### 2 [id number] #### KOBYTiny Mckeon[address] [address] Lipase Levelon 09-03-2018 Lipase Lvl 12 Int._Unit/L Normal 9-82 [facility] Comment on above: Performed By: #### 2 [id number] #### KOBYTiny [address]ke[address] [address] Manual Diffon 09-03-2018 Band form neutrophils/100 WBC (Bld) 1 Normal 0-1 [facility] Comment on above: Order Comment: Order Added by Discern Expert. Performed By: #### 2 [id number] #### KOBY MckeonHemo [address] [place] [address] Basophil Man 0 % Normal 0-1 [facility] Comment on above: Order Comment: Order Added by Discern Expert. Performed By: #### 2 [id number] #### KOBY RemHemo [address] [place] [address] Eosinophils/100 WBC (Bld) 0 % Normal 0-5 [facility] Comment on above: Order Comment: Order Added by Discern Expert. Performed By: #### 2 [id number] #### KOBY MckeonHemo [address] [place] [address] Lymphocytes/100 WBC (Bld) 6 % Low 14-48 [facility] Comment on above: Order Comment: Order Added by Discern Expert. Performed By: #### 2 [id number] #### KOBY MckeonHemo [address] [place] [address] Monocyte Man 5 % Normal 1-11 [facility] Comment on above: Order Comment: Order Added by Discern Expert. Performed By: #### 2 [id number] #### KOBY MckeonHemo [address] [place] [address] RBC morphology finding Nom (Bld) NORMAL Normal [facility] Comment on above: Order Comment: Order Added by Discern Expert. Performed By: #### 2 [id number] #### KOBY MckeonHemo [address] [place] [address] Segs Man 88 % High 37-75 [facility] Comment on above: Order Comment: Order Added by Discern Expert. Performed By: #### 2 [id number] #### KOBY MckeonHemo [address] [place] [address] TSHon 09-03-2018 TSH Qn 0.89 mcIU/mL Normal 0.30-5.60 [facility] Comment on above: Order Comment: With T4fr Reflex Performed By: #### 2 [id number] #### KOBY MckeonChem [address] [place] [address] U BhCG Qlton 09-03-2018 HCG.beta subunit Qn Negative Normal Neg [facility] Comment on above: Performed By: #### 2 [id number] #### KOBY MckeonChem [address] [place] [address] UA Completeon 09-03-2018 Color (U) Yellow Normal Yellow [facility] Comment on above: Order Comment: Strai ght Cath as needed Performed By: #### 2 [id number] #### KOBY [facility] [address] [place] [address] Glucose (U) [Mass/Vol] Negative Normal Negative [facility] Comment on above: Order Comment: Strai ght Cath as needed Performed By: #### 2 [id number] #### KOBY [facility] [address] [place] [address] Ketones Ql (U) 1+ Abnormal Negative [facility] Comment on above: Order Comment: Strai ght Cath as needed Performed By: #### 2 [id number] #### KOBY [facility] [address] [place] [address] RBC (U) [#/Vol] 10-20 Abnormal 0-3 [facility] Comment on above: Order Comment: Strai ght Cath as needed Performed By: #### 2 [id number] #### KOBY [facility] [address] [place] [address] UA Blood 1+ Abnormal Negative [facility] Comment on above: Order Comment: Strai ght Cath as needed Performed By: #### 2 [id number] #### KOBY [facility] [address] [place] [address] UA Ascorbic Acid 40 mg/dL High <=19 [facility] Comment on above: Order Comment: Strai ght Cath as needed Performed By: #### 2 [id number] #### KOBY [facility] [address] [place] [address] UA Clarity SltCloudy Abnormal Clear [facility] Comment on above: Order Comment: Strai ght Cath as needed Performed By: #### 2 [id number] #### KOBY [facility] [address] [place] [address] UA Leuk Est 1+ Abnormal Negative [facility] Comment on above: Order Comment: Strai ght Cath as needed Performed By: #### 2 [id number] #### KOBY [facility] [address] [place] [address] UA Mucous Trace Abnormal Trace [facility] Comment on above: Order Comment: Strai ght Cath as needed Performed By: #### 2 [id number] #### KOBY [facility] [address] [place] [address] UA Nitrite Negative Normal Negative [facility] Comment on above: Order Comment: Strai ght Cath as needed Performed By: #### 2 [id number] #### KOBY [facility] [address] [place] [address] UA pH 7.0 Normal 4.6-8.0 [facility] Comment on above: Order Comment: Strai ght Cath as needed Performed By: #### 2 [id number] #### KOYB [facility] [address] [place] [address] UA Protein Negative Normal Negative [facility] Comment on above: Order Comment: Strai ght Cath as needed Performed By: #### 2 [id number] #### KOBY [facility] [address] [place] [address] UA Spec Grav 1.015 Normal 1.003-1.030 [facility] Comment on above: Order Comment: Strai ght Cath as needed Performed By: #### 2 [id number] #### KOBY [facility] [address] [place] [address] UA Squam Epithelial 0-5 Normal 0-5 [facility] Comment on above: Order Comment: Strai ght Cath as needed Performed By: #### 2 [id number] #### [facility] [address] [place] [address] UA Urobilinogen Negative Normal [facility] Comment on above: Order Comment: Strai ght [...] within 24 hours. Performed By: #### 2 [id number] #### KOBY [facility] [address] [place] [address] UA WBC 20-50 Abnormal 0-5 [facility] Comment on above: Order Comment: Strai ght Cath as needed Performed By: #### 2 [id number] #### KOBY [facility] [address] [place] [address] Urobilinogen Qn (U) Negative Normal Negative [facility] Comment on above: Order Comment: Strai ght Cath as needed Performed By: #### 2 [id number] #### KOBY [facility] [address] [place] [address] eGFRon 09-03-2018 GFR/1.73 sq M predicted among non-blacks MDRD (S/P/Bld) [Vol rate/Area] mL/min/{1.73_m2} Normal [facility] Comment on above: Order Comment: Order added by Discern Expert. Performed By: #### 1 [id number] #### KOB[facility] [address] [place] [address] zzplt morphon 09-03-2018 Platelet morphology finding Nom (Bld) NORMAL Normal [facility] Comment on above: Performed By: #### 9 [id number] #### KOBY RemHemo [address] [place] [address] Platelets (Bld) [#/Vol] NORMAL Normal [facility] Comment on above: Performed By: #### 9 [id number] #### KBOY RemHemo [address] [place] [address] Vital Signs Date Time Vital Sign Value Performing Clinician Facility 04-02-2023 16:00-0400 Body temperature 97.88 [degF] SUNIL GRAHAM MD [facility] 04-02-2023 16:00-0400 Diastolic Blood Pressure Non-Invasive 66 1 SUNIL GRAHAM MD [facility] 04-02-2023 16:00-0400 Heart rate 77 /min SUNIL GRAHAM MD [facility] 04-02-2023 16:00-0400 Respiratory rate 18 /min SUNIL GRAHAM MD [facility] 04-02-2023 16:00-0400 Systolic Blood Pressure Non-Invasive 110 1 SUNIL GRAHAM MD [facility] 04-02-2023 10:00-0400 Body temperature 97.7 [degF] SUNIL GRAHAM MD [facility] 04-02-2023 10:00-0400 Diastolic Blood Pressure Non-Invasive 48 1 SUNIL GRAHAM MD [facility] 04-02-2023 10:00-0400 Heart rate 81 /min SUNIL GRAHAM MD [facility] 04-02-2023 10:00-0400 Systolic Blood Pressure Non-Invasive 97 1 SUNIL GRAHAM MD [facility] 04-02-2023 00:31-0400 Body temperature 97.88 [degF] SUNIL GRAHAM MD [facility] 04-02-2023 00:31-0400 Diastolic Blood Pressure Non-Invasive 59 1 SUNIL GRAHAM MD [facility] 04-02-2023 00:31-0400 Heart rate 68 /min SUNIL GRAHAM MD [facility] 04-02-2023 00:31-0400 Reason For Taking VItal Signs SUNIL GRAHAM MD [facility] 04-02-2023 00:31-0400 Respiratory rate 16 /min SUNIL GRAHAM MD [facility] 04-02-2023 00:31-0400 Systolic Blood Pressure Non-Invasive 113 1 SUNIL GRAHAM MD [facility] 04-01-2023 16:20-0400 Reason For Taking VItal Signs SUNIL GRAHAM MD [facility] 04-01-2023 08:41-0400 Reason For Taking VItal Signs SUNIL GRAHAM MD [facility] 03-31-2023 23:30-0400 Body temperature 97.88 [degF] SUNIL GRAHAM MD [facility] 03-31-2023 15:25-0400 Body temperature 98.42 [degF] SUNIL GRAHAM MD [facility] 03-31-2023 08:36-0400 Body temperature 98.24 [degF] SUNIL GRAHAM MD [facility] 03-30-2023 07:49-0400 Body height 155 cm SUNIL GRAHAM MD [facility] 03-30-2023 07:49-0400 Body weight 78 kg SUNIL GRAHAM MD [facility] 03-30-2023 07:49-0400 Body weight 32.47 kg/m2 SUNIL GRAHAM MD [facility] 03-07-2023 20:03-0400 Body temperature 98.6 [degF] MARTINEZ NÚÑEZ MD [facility] 03-07-2023 20:03-0400 Diastolic Blood Pressure Non-Invasive 69 1 MARTINEZ NÚÑEZ MD [facility] 03-07-2023 20:03-0400 Heart rate 91 /min MARTINEZ NÚÑEZ MD [facility] 03-07-2023 20:03-0400 Respiratory rate 18 /min MARTINEZ NÚÑEZ MD [facility] 03-07-2023 20:03-0400 Systolic Blood Pressure Non-Invasive 115 1 MARTINEZ NÚÑEZ MD [facility] 03-07-2023 20:02-0400 Body height 155 cm MARTINEZ NÚÑEZ MD [facility] 03-07-2023 20:02-0400 Body weight 79.5 kg MARTINEZ NÚÑEZ MD [facility] 03-07-2023 20:02-0400 Body weight 33.09 kg/m2 MARTINEZ NÚÑEZ MD [facility] 03-06-2023 17:39-0400 Body temperature 98.06 [degF] MARTINEZ NÚÑEZ MD [facility] 03-06-2023 17:39-0400 Diastolic Blood Pressure Non-Invasive 76 1 MARTINEZ NÚÑEZ MD [facility] 03-06-2023 17:39-0400 Heart rate 125 /min MARTINEZ NÚÑEZ MD [facility] 03-06-2023 17:39-0400 Systolic Blood Pressure Non-Invasive 113 1 MARTINEZ NÚÑEZ MD [facility] 03-06-2023 17:37-0400 Body height 155 cm MARTINEZ NÚÑEZ MD [facility] 03-06-2023 17:37-0400 Body weight 79.5 kg MARTINEZ NÚÑEZ MD [facility] 03-06-2023 17:37-0400 Body weight 33.09 kg/m2 MARTINEZ NÚÑEZ MD [facility] 01-26-2023 03:20-0400 Diastolic Blood Pressure Non-Invasive 67 1 MARTINEZ NÚÑEZ MD [facility] 01-26-2023 03:20-0400 Heart rate 107 /min MARTINEZ NÚÑEZ MD [facility] 01-26-2023 03:20-0400 Systolic Blood Pressure Non-Invasive 113 1 MARTINEZ NÚÑEZ MD [facility] 01-26-2023 02:34-0400 Diastolic Blood Pressure Non-Invasive 71 1 MARTINEZ NÚÑEZ MD [facility] 01-26-2023 02:34-0400 Heart rate 95 /min MARTINEZ NÚÑEZ MD [facility] 01-26-2023 02:34-0400 Systolic Blood Pressure Non-Invasive 116 1 MARTINEZ NÚÑEZ MD [facility] 01-26-2023 02:15-0400 Body temperature 98.24 [degF] MARTINEZ NÚÑEZ MD [facility] 01-26-2023 01:46-0400 Diastolic Blood Pressure Non-Invasive 42 1 MARTINEZ NÚÑEZ MD [facility] 01-26-2023 01:46-0400 Heart rate 101 /min MARTINEZ NÚÑEZ MD [facility] 01-26-2023 01:46-0400 Systolic Blood Pressure Non-Invasive 114 1 MARTINEZ NÚÑEZ MD [facility] 01-26-2023 01:16-0400 Respiratory rate 16 /min MARTINEZ NÚÑEZ MD [facility] 01-26-2023 00:59-0400 Body height 155 cm MARTINEZ NÚÑEZ MD [facility] 01-26-2023 00:59-0400 Body weight 77.3 kg MARTINEZ NÚÑEZ MD [facility] 01-26-2023 00:59-0400 Body weight 32.17 kg/m2 MARTINEZ NÚÑEZ MD [facility] 11-18-2022 12:08-0500 Body temperature 98.24 [degF] SUNIL GRAHAM MD [facility] 11-18-2022 12:08-0500 Diastolic Blood Pressure Non-Invasive 82 1 SUNIL GRAHAM MD [facility] 11-18-2022 12:08-0500 Heart rate 108 /min SUNIL GRAHAM MD [facility] 11-18-2022 12:08-0500 Respiratory rate 18 /min SUNIL GRAHAM MD [facility] 11-18-2022 12:08-0500 Systolic Blood Pressure Non-Invasive 103 1 SUNIL GRAHAM MD [facility] 10-14-2022 11:01-0500 Body weight 80.06 kg Gretel Quintana MD Work Phone: [facility] 10-14-2022 11:01-0500 Diastolic blood pressure 56 mm[Hg] Gretel Quintana MD Work Phone: [facility] 10-14-2022 11:01-0500 Respiratory rate 18 /min Gretel Quintana MD Work Phone: [facility] 10-14-2022 11:01-0500 Systolic blood pressure 110 mm[Hg] Gretel Quintana MD Work Phone: [facility] 08-19-2022 13:06-0500 Body weight 85.5 kg Braulio Hollingsworth MD Work Phone: [facility] 08-19-2022 13:06-0500 Diastolic blood pressure 82 mm[Hg] Braulio Hollingsworth MD Work Phone: [facility] 08-19-2022 13:06-0500 Systolic blood pressure 102 mm[Hg] Braulio Hollingsworth MD Work Phone: [facility] 08-09-2022 18:09-0400 Diastolic blood pressure 74 mm[Hg] No Primary Care Physician [facility] Work Phone: 08-09-2022 18:09-0400 Heart rate 107 /min No Primary Care Physician [facility] Work Phone: 08-09-2022 18:09-0400 Respiratory rate 18 /min No Primary Care Physician [facility] Work Phone: 08-09-2022 18:09-0400 SaO2% (BldA) [Mass fraction] 94 % No Primary Care Physician [facility] Work Phone: 08-09-2022 18:09-0400 Systolic blood pressure 120 mm[Hg] No Primary Care Physician [facility] Work Phone: 08-09-2022 13:51-0400 Body height 154.94 cm No Primary Care Physician [facility] Work Phone: 08-09-2022 13:51-0400 Body mass index (BMI) [Ratio] 35.9 kg/m2 No Primary Care Physician [facility] Work Phone: 08-09-2022 13:51-0400 Body temperature 98.2 [degF] No Primary Care Physician [facility] Work Phone: 08-09-2022 13:51-0400 Body weight 86.4 kg No Primary Care Physician [facility] Work Phone: 08-04-2022 13:54-0400 Diastolic blood pressure 76 mm[Hg] Melania Mitchell MD Work Phone: [facility] 08-04-2022 13:54-0400 Heart rate 100 /min Melania Mitchell MD Work Phone: [facility] 08-04-2022 13:54-0400 Respiratory rate 16 /min Melania Mitchell MD Work Phone: [facility] 08-04-2022 13:54-0400 SaO2% (BldA) [Mass fraction] 98 % Melania Mitchell MD Work Phone: [facility] 08-04-2022 13:54-0400 Systolic blood pressure 102 mm[Hg] Melania Mitchell MD Work Phone: [facility] 08-04-2022 10:48-0400 Body height 154.9 cm Melania Mitchell MD Work Phone: [facility] 08-04-2022 10:48-0400 Body mass index (BMI) [Ratio] 30.23 kg/m2 Melania Mitchell MD Work Phone: [facility] 08-04-2022 10:48-0400 Body temperature 98.2 [degF] Melania Mitchell MD Work Phone: [facility] 08-04-2022 10:48-0400 Body weight 72.58 kg Melania Mitchell MD Work Phone: [facility] 07-08-2022 15:30-0400 Body temperature 98.2 [degF] No Primary Care Physician [facility] Work Phone: 07-08-2022 15:30-0400 Diastolic blood pressure 78 mm[Hg] No Primary Care Physician [facility] Work Phone: 07-08-2022 15:30-0400 Heart rate 89 /min No Primary Care Physician [facility] Work Phone: 07-08-2022 15:30-0400 Respiratory rate 14 /min No Primary Care Physician [facility] Work Phone: 07-08-2022 15:30-0400 SaO2% (BldA) [Mass fraction] 98 % No Primary Care Physician [facility] Work Phone: 07-08-2022 15:30-0400 Systolic blood pressure 124 mm[Hg] No Primary Care Physician [facility] Work Phone: 06-30-2022 00:36-0400 Diastolic blood pressure 76 mm[Hg] No Primary Care Physician [facility] Work Phone: 06-30-2022 00:36-0400 Heart rate 79 /min No Primary Care Physician [facility] Work Phone: 06-30-2022 00:36-0400 Respiratory rate 16 /min No Primary Care Physician [facility] Work Phone: 06-30-2022 00:36-0400 SaO2% (BldA) [Mass fraction] 96 % No Primary Care Physician [facility] Work Phone: 06-30-2022 00:36-0400 Systolic blood pressure 113 mm[Hg] No Primary Care Physician [facility] Work Phone: 06-29-2022 23:48-0400 Body temperature 98.9 [degF] No Primary Care Physician [facility] Work Phone: 06-29-2022 18:00-0400 Body mass index (BMI) [Ratio] 33 kg/m2 No Primary Care Physician [facility] Work Phone: 06-29-2022 18:00-0400 Body weight 79.37 kg No Primary Care Physician [facility] Work Phone: Encounters Encounter Date Encounter Type Care Provider Facility Start: 08-01-2025 ambulatory No Primary Care Physici an Facility:[facility] Start: 07-09-2025 End: 07-09-2025 ambulatory No Primary Care Physician Facility:[facility] Start: 07-09-2025 End: 07-09-2025 ambulatory No Primary Care Physician Facility:[facility] Start: 07-03-2025 End: 07-03-2025 ambulatory No Primary Care Physician Facility:[facility] Start: 07-03-2025 End: 07-03-2025 ambulatory No Primary Care Physician Facility:[facility] Start: 06-26-2025 End: 06-26-2025 ambulatory RAMA Dinesh [facility] Start: 06-20-2025 End: 06-20-2025 ambulatory [facility] Dinesh [facility] Start: 06-06-2025 End: 06-06-2025 ambulatory Rama Stuart Facility:[facility] Start: 05-30-2025 End: 05-30-2025 ambulatory No Primary Care Physician Facility:[facility] Start: 05-30-2025 End: 05-30-2025 ambulatory Rama Stuart Facility:[facility] Start: 05-14-2025 End: 05-14-2025 ambulatory Rama Stuart Facility:[facility] Start: 05-14-2025 End: 05-14-2025 ambulatory No Primary Care Physician Facility:[facility] Start: 05-07-2025 End: 05-07-2025 ambulatory No Primary Care Physician Facility:[facility] Start: 05-07-2025 End: 05-07-2025 ambulatory No Primary Care Physician Facility:[facility] Start: 04-09-2025 End: 04-09-2025 ambulatory No Primary Care Physician Facility:[facility] Start: 04-09-2025 End: 04-09-2025 ambulatory Remedios Jose DIRECTOR PHYSICAL THERAPY Facility:[facility] Start: 03-15-2025 End: 03-15-2025 ambulatory Remedios Jose DIRECTOR PHYSICAL THERAPY Facility:[facility] Start: 03-13-2025 End: 03-13-2025 ambulatory No Primary Care Physician Facility:[facility] Start: 03-13-2025 End: 03-13-2025 ambulatory Remedios [place] DIRECTOR PHYSICAL THERAPY Facility:[facility] Start: 01-02-2025 End: 01-02-2025 Emergency department patient visit Mendez Gardner Facility:[facility] Start: 08-03-2024 End: 08-18-2024 ambulatory KIRSTEN MAST REHAB RN-LOSS PREVENTION SUPERVISOR Facility:[facility] Start: 08-03-2024 End: 08-18-2024 Physical therapy management KIRSTEN MAST REHAB RN-LOSS PREVENTION SUPERVISOR [facility] Start: 02-18-2024 End: 02-19-2024 ambulatory KIRSTEN MAST REHAB RN-LOSS PREVENTION SUPERVISOR Facility:[facility] Start: 02-18-2024 End: 02-18-2024 Patient encounter procedure KIRSTEN MAST REHAB RN-LOSS PREVENTION SUPERVISOR [facility] Start: 10-15-2023 End: 10-16-2023 ambulatory OSMAN TORRES PMHNP-BC Facility:[facility] Start: 10-15-2023 End: 10-15-2023 Patient encounter procedure OSMAN TORRES PMHNP-BC [facility] Start: 03-30-2023 End: 04-02-2023 Evaluation and management of inpatient MARTINEZ NÚÑEZ MD Facility:[facility] Start: 03-30-2023 End: 04-02-2023 Evaluation and management of inpatient SUNIL GRAHAM MD [facility] Start: 03-18-2023 End: 03-18-2023 ambulatory MARTINEZ NÚÑEZ MD Facility:[facility] Start: 03-15-2023 End: 03-16-2023 ambulatory SUNIL GRAHAM MD Facility:[facility] Start: 03-15-2023 End: 03-15-2023 Patient encounter procedure SUNIL GRAHAM MD [facility] Start: 03-09-2023 End: 03-14-2023 ambulatory LONG DICKERSON MD Facility:[facility] Start: 03-09-2023 End: 03-10-2023 ambulatory LONG DICKERSON MD Facility:[facility] Start: 03-09-2023 End: 03-13-2023 Outreach Lab LONG DICKERSON MD [facility] Start: 03-09-2023 End: 03-09-2023 Patient encounter procedure LONG DICKERSON MD [facility] Start: 03-07-2023 End: 03-07-2023 ambulatory MARTINEZ NÚÑEZ MD Facility:[facility] Start: 03-07-2023 End: 03-07-2023 SAME DAY STAY MARTINEZ NÚÑEZ MD [facility] Start: 03-06-2023 End: 03-06-2023 ambulatory MARTINEZ NÚÑEZ MD Facility:[facility] Start: 03-06-2023 End: 03-06-2023 SAME DAY STAY MARTINEZ NÚÑEZ MD [facility] Start: 01-26-2023 End: 01-26-2023 SAME DAY STAY MARTINEZ NÚÑEZ MD [facility] Start: 01-25-2023 End: 01-25-2023 Patient encounter procedure SUNIL GRAHAM MD [facility] Start: 01-19-2023 End: 01-19-2023 Patient encounter procedure SUNIL GRAHAM MD [facility] Start: 01-05-2023 End: 01-05-2023 Patient encounter procedure SUNIL GRAHAM MD [facility] Start: 12-03-2022 Refill Tad kirk DO Work Phone: [facility] Comment on above: Med Change Request Start: 11-18-2022 End: 11-18-2022 SAME DAY STAY SUNIL GRAHAM MD [facility] Start: 11-13-2022 End: 11-13-2022 Patient encounter procedure 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 REHAB RN-LOSS PREVENTION SUPERVISOR [facility] Start: 10-29-2022 End: 10-29-2022 ambulatory CHEKO MCCLELLAND Facility:[facility] Start: 10-14-2022 End: 10-14-2022 ambulatory GRETEL QUINTANA Facility:[facility] Start: 10-14-2022 End: 10-14-2022 Patient encounter procedure Gretel Quintana MD Work Phone: Obstetrics/Gynecolog y Comment on above: Encounter for superv ision of normal first in second trimester (Primary Dx); Need for influenza vaccination; 15 weeks gestation of Start: 09-21-2022 End: 09-21-2022 ambulatory FLORENCE HEWITT Facility:[facility] Start: 09-17-2022 End: 09-17-2022 ambulatory BRAULIO [place] Facility:[facility] Start: 08-21-2022 ambulatory Braulio Hollingsworth MD Work Phone: Obstetrics/Gynecolog y Comment on above: Luz oliveira Start: 08-19-2022 End: 08-19-2022 ambulatory BRAULIO [place] Facility:[facility] Start: 08-19-2022 End: 08-19-2022 Patient encounter procedure Braulio Hollingsworth MD Work Phone: Obstetrics/Gynecolog y Comment on above: Encounter for superv ision of normal first in first trimester (Primary Dx) with uncer tain dates in first trimester (Primary Dx) Start: 08-14-2022 End: 08-14-2022 ambulatory TANESHA FRANKLINLex Facility:[facility] Start: 08-10-2022 Telephone encounter Braulio connolly MD Work Phone: Obstetrics/Gynecolog y Comment on above: Patient Update Start: 08-09-2022 End: 08-09-2022 Emergency department patient visit No Primary Care Physician [facility] Start: 08-04-2022 End: 08-04-2022 Emergency department patient visit [facility] Start: 08-04-2022 End: 08-04-2022 Emergency department patient visit Melania Mitchell MD Work Phone: [facility] Comment on above: Threatened miscarria ge in early (Primary Dx) Start: 07-20-2022 End: 07-20-2022 ambulatory No Primary Care Physician [place] Work Phone: Start: 07-20-2022 End: 07-20-2022 Discharged Recurring No Primary Care Physician [facility] Therapy Start: 07-20-2022 Registered Recurring No Primary Care Physician [facility] Start: 07-09-2022 Telephone encounter Ledy wang MD Work Phone: [facility] Comment on above: Missed Appointment ( #1 No Show, #1 Letter) Start: 07-08-2022 End: 07-08-2022 Patient encounter procedure No Primary Care Physician [facility] Start: 06-29-2022 End: 06-30-2022 Emergency department patient visit No Primary Care Physician [facility] Start: 05-31-2022 End: 05-31-2022 Emergency department patient visit HIWOT HUDSON Facility:[facility] Start: 12-31-2021 End: 12-31-2021 Emergency department patient visit JAYDE YEAGER Facility:[facility] Start: 01-27-2021 End: 01-27-2021 ambulatory Alex [phone] Lynsey [phone] Facility:[facility] Start: 12-25-2018 Patient encounter procedure [...] Speci men Type: BLOOD SPECIMEN Ordering Facility: [facility] Address: [address] [place], [place] [id number] Performed By: #### T SPN #### [facility] [facility] [id number] [address] [place] [address] [place] Start: 08-19-2022 Antibody [...] Speci men Type: BLOOD SPECIMEN Ordering Facility: [facility] Address: [place] [address] Performed By: #### T SPN #### [facility] CLIA [id number] [address] [place] [address] [place] Start: 08-09-2022 Transvaginal [...] of wisdom tooth (body structure) 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 REHAB RN-LOSS PREVENTION SUPERVISOR Plan of Treatment Date Care Activity Detail Author Start: 08-19-2025 PAP TESTING PAP TESTING [facility] Start: 05-14-2024 PAP TESTING PAP TESTING [facility] Start: 08-19-2023 CHLAMYDIA SCREENING (18-24) CHLAMYDIA SCREENING (18-24) [facility] Start: 08-19-2023 GC (GONORRHEA) SCREE SAADIA (18-24) GC (GONORRHEA) SCREENING (18-24) [facility] Start: 10-14-2022 End: 10-14-2023 OBSTETRIC ULTRASOUND WHI OBSTETRIC ULTRASOUND WHI Anc Imaging Routine Encounter for supervision of normal first in second trimester Expected: 10/14/2022, Expires: 10/14/2023 [facility] Work Phone: Comment on above: Expected: 10/14/2022 , Expires: 10/14/2023 Start: 10-11-2022 DEPRESSION ASSESSMENT DEPRESSION ASS ESSMENT [facility] Start: 08-19-2022 End: 10-19-2022 Hepatitis B virus surface Ab [Presence] in Serum by Immunoassay [facility] Work Phone: Comment on above: Expected: 08/19/2022 , Expires: 10/19/2022 Start: 08-19-2022 End: 10-19-2022 Hepatitis C virus Ab [Presence] in Serum [facility] Work Phone: Comment on above: Expected: 08/19/2022 , Expires: 10/19/2022 Start: 08-19-2022 End: 10-19-2022 HIV 1+2 Ab [Presence] in Serum or Plasma by Immunoassay [facility] Work Phone: Comment on above: Expected: 08/19/2022 , Expires: 10/19/2022 Start: 08-19-2022 End: 08-19-2023 NUCHAL TRANSLUCENCY WHI NUCHAL TRANSLUCENCY WHI Anc Imaging Routine Encounter for supervision of normal first in first trimester Expected: 08/19/2022, Expires: 08/19/2023 [facility] Work Phone: Comment on above: Expected: 08/19/2022 , Expires: 08/19/2023 Start: 08-19-2022 End: 10-19-2022 RUBELLA IGG AB [facility] Work Phone: Comment on above: Expected: 08/19/2022 , Expires: 10/19/2022 Start: 08-19-2022 End: 10-19-2022 SYPHILIS TOTAL W/REFLEX [facility] Work Phone: Comment on above: Expected: 08/19/2022 , Expires: 10/19/2022 Start: 07-08-2022 Patient referral [facility] Work Phone: Start: 06-11-2022 Influenza vaccination INFLUENZA (#1) [facility] Start: 05-14-2022 CHLAMYDIA SCREENING (18-24) CHLAMYDIA SCREENING (18-24) [facility] Start: 05-14-2022 GC (GONORRHEA) SCRELily SAADIA (18-24) GC (GONORRHEA) SCREENING (18-24) [facility] Start: 05-11-2022 Influenza vaccination Flu vaccine (# 1) [facility] Start: 05-07-2022 Urine microalbumin profile DTAP,TDAP,TD (7 - Td or Tdap) [facility] Start: 10-11-2021 DEPRESSION ASSESSMENT DEPRESSION ASS ESSMENT [facility] Start: 05-17-2021 COVID-19 VACCINE (3 - Booster for Pfizer series) COVID-19 VACCINE (3 - Booster for Pfizer series) [facility] Start: 2020 Screening for malign ant neoplasm of cervix Pap smear [facility] Start: 2018 DTaP/Tdap/Td vaccine (1 - Tdap) DTaP/Tdap/Td vaccine (1 - Tdap) [facility] Start: 2017 HEPATITIS C SCREENING HEPATITIS C SC REENING [facility] Start: 2017 Hepatitis C screening Hepatitis C sc reen [facility] Start: 2017 HIV SCREENING HIV SCREENING [facility] Start: 2015 Screening for Chlamy jarod trachomatis Chlamydia/GC screen [facility] Start: 2014 HIV screening HIV screen [facility] Start: 2013 PEDS TO ADULT TRANSI TION ANNUAL ASSESSMENT PEDS TO ADULT TRANSITION ANNUAL ASSESSMENT [facility] Start: 2011 Depression Screen Depression Screen [facility] Start: 2011 PEDS TO ADULT TRANSI TION INITIAL DISCUSSION PEDS TO ADULT TRANSITION INITIAL DISCUSSION [facility] Start: 2010 HPV vaccine (1 - 2-d ose series) HPV vaccine (1 - 2-dose series) [facility] Start: 2009 MENINGOCOCCAL B: Consider based on risk (1 of 2 - Risk Bexsero 2-dose series) MENINGOCOCCAL B: Consider based on risk (1 of 2 - Risk Bexsero 2-dose series) [facility] Start: 2000 Varicella vaccine (1 of 2 - 2-dose childhood series) Varicella vaccine (1 of 2 - 2-dose childhood series) [facility] Start: 04-09-2000 COVID-19 VACCINE (#1) COVID-19 VACCI NE (#1) [facility] Bacteria identified in Urine by Culture URINE CULTURE Microbiology Routine Encounter for supervision of normal first in first trimester 08/19/2022 2:08 PM [facility] Work Phone: Chlamydia trachomatis+Neisseria gonorrhoeae DNA [Presence] in Unspecified specimen by CHICHO with probe detection GC/CHLAMYDIA DNA DET Lab Routine Encounter for supervision of normal first in first trimester 08/19/2022 2:13 PM [facility] Work Phone: PAP FLUID CERVICAL SCREENING PAP FLUID CERVICAL SCREENING Lab Routine Encounter for supervision of normal first in first trimester Ordered: 08/19/2022 [facility] Work Phone: Comment on above: Ordered: 08/19/2022 Patient Education [facility] Work Phone: Patient referral [facility] Work Phone: [facility] Immunizations Immunization Date Immunization Notes Care Provider Fa [facility] 08-24-2023 tetanus toxoid, redu ibis diphtheria toxoid, and acellular pertussis vaccine, adsorbed KIRSTEN MAST REHAB RN-LOSS PREVENTION SUPERVISOR [facility] 02-01-2023 tetanus toxoid, redu ibis diphtheria toxoid, and acellular pertussis vaccine, adsorbed; Translations: [Boostrix (Tdap)] MARTINEZ NÚÑEZ MD [facility] Comment on above: Result Comment: [facility]- [id number] 10-14-2022 influenza virus vacc ine, unspecified formulation KIRSTEN MAST REHAB RN-LOSS PREVENTION SUPERVISOR [facility] 10-14-2022 influenza, injectabl e, quadrivalent, contains preservative Gretel Quintana MD Work Phone: [facility] 03-22-2021 SARS-CoV-2 mRNA (tozinameran) vaccine KIRSTEN [facility] REH[facility] RN-[facility] 03-01-2021 SARS-CoV-2 mRNA (tozinameran) vaccine KIRSTEN [facility] REH[facility] RN-[facility] 09-20-2020 influenza virus vacc ine, unspecified formulation [facility] 09-08-2019 influenza virus vacc ine, unspecified formulation [facility] 03-02-2018 varicella virus vaccine JT [facility] RE[facility] RN-[facility] 07-26-2017 influenza virus vacc ine, unspecified formulation [facility] 05-11-2017 meningococcal polysaccharide (groups A, C, Y and W-135) diphtheria toxoid conjugate vaccine (MCV4P) [facility] 02-24-2016 meningococcal polysaccharide (groups A, C, Y and W-135) diphtheria toxoid conjugate vaccine (MCV4P) Ledy Vaughn MD Work Phone: [facility] 07-05-2014 influenza virus vacc ine, unspecified formulation [facility] REHAB RN-[facility] 07-05-2014 influenza, injectabl e, quadrivalent, preservative free Ledy Vaughn MD Work Phone: [facility] Work Phone: 02-20-2014 human papilloma viru s vaccine, quadrivalent Ledy Vaughn MD Work Phone: [facility] 02-20-2014 Human Papillomavirus Quadval KIRSTEN MAST REHAB RN-LOSS PREVENTION SUPERVISOR [facility] [place] 05-18-2013 human papilloma viru s vaccine, quadrivalent Ledy Vaughn MD Work Phone: [facility] Work Phone: 05-07-2012 human papilloma viru s vaccine, quadrivalent Ledy Vaughn MD Work Phone: [facility] 05-07-2012 Meningococcal, MCV4, unspecified conjugate formulation(groups A, C, Y and W-135) Ledy Vaughn MD Work Phone: [facility] 05-07-2012 tetanus toxoid, redu ibis diphtheria toxoid, and acellular pertussis vaccine, adsorbed Ledy Vaughn MD Work Phone: [facility] 05-07-2012 varicella virus vaccine Chayo Harris MD Work Phone: [facility] 01-09-2005 diphtheria, tetanus toxoids and acellular pertussis vaccine Ledy Vaughn MD Work Phone: [facility] 01-09-2005 measles, mumps and rubella virus vaccine Ledy Vaughn MD Work Phone: [facility] 01-09-2005 poliovirus vaccine, inactivated Ledy Vaughn MD Work Phone: [facility] 04-26-2001 pneumococcal conjuga te vaccine, 7 valent Ledy Vaughn MD Work Phone: [facility] 02-17-2001 diphtheria, tetanus toxoids and acellular pertussis vaccine Ledy Vaughn MD Work Phone: [facility] Work Phone: 02-17-2001 haemophilus influenz ae type b vaccine, HbOC conjugate Ledy Vaughn MD Work Phone: [facility] Work Phone: 02-17-2001 pneumococcal conjuga te vaccine, 7 valent Ledy Vaughn MD Work Phone: [facility] 11-03-2000 measles, mumps and rubella virus vaccine Ledy Vaughn MD Work Phone: [facility] Work Phone: 11-03-2000 measles/mumps/rubell a virus vaccine KIRSTEN CISNEROS REHAB RN-LOSS PREVENTION SUPERVISOR [facility] 11-03-2000 varicella virus vaccine Chayo Harris MD Work Phone: [facility] Work Phone: 05-05-2000 diphtheria, tetanus toxoids and acellular pertussis vaccine Ledy Vaughn MD Work Phone: [facility] Work Phone: 05-05-2000 haemophilus influenz ae type b vaccine, HbOC conjugate Ledy Vaughn MD Work Phone: [facility] Work Phone: 05-05-2000 hepatitis B vaccine, pediatric or pediatric/adolescent dosage Ledy Vaughn MD Work Phone: [facility] Work Phone: 05-05-2000 poliovirus vaccine, inactivated Ledy Vaughn MD Work Phone: [facility] Work Phone: 03-03-2000 diphtheria, tetanus toxoids and acellular pertussis vaccine Ledy Vaughn MD Work Phone: [facility] Work Phone: 03-03-2000 haemophilus influenz ae type b vaccine, HbOC conjugate Ledy Vaughn MD Work Phone: [facility] Work Phone: 03-03-2000 poliovirus vaccine, inactivated Ledy Vaughn MD Work Phone: [facility] Work Phone: 1999 diphtheria, tetanus toxoids and acellular pertussis vaccine Ledy Vaughn MD Work Phone: [facility] Work Phone: 1999 haemophilus influenz ae type b vaccine, HbOC conjugate Ledy Vaughn MD Work Phone: [facility] Work Phone: 1999 hepatitis B vaccine, pediatric or pediatric/adolescent dosage Ledy Vaughn MD Work Phone: [facility] Work Phone: 1999 poliovirus vaccine, inactivated Ledy Vaughn MD Work Phone: [facility] Work Phone: 1999 hepatitis B pediatri c vaccine KIRSTEN BLAYNE REHAB RN-LOSS PREVENTION SUPERVISOR [facility] 1999 hepatitis B vaccine, pediatric or pediatric/adolescent dosage Ledy Vaughn MD Work Phone: [facility] Work Phone: Payers Date Payer Category Payer Self-pay [id number] 2025 Unknown [id number] 2023 Unknown [id number] 2021 Unknown [id number] 2021 Unknown [id number] 2021 Unknown [id number] 1999 Unknown [id number] 2.16. 840.1.211761.3.579.2.356 1999 Unknown [id number] 2.16. 840.1.949707.3.579.2.356 1999 Unknown [id number] 2.16.8 40.1.013938.3.579.2.419 1999 Unknown [id number] 2.16. 840.1.848304.3.579.2.668 1999 Unknown [id number] 2.16.8 40.1.134566.3.579.2.627 1999 Unknown [id number] 2.16.8 40.1.567319.3.579.2.627 1999 Unknown [id number] 2.16.8 40.1.246418.3.579.2.627 1999 Unknown [id number] 2.16.8 40.1.128825.3.579.2.627 1999 Unknown [id number] 2.16.8 40.1.023085.3.579.2.627 1999 Unknown [id number] 2.16.8 40.1.776373.3.579.2.627 1999 Unknown [id number] 2.16.8 40.1.745177.3.579.2.627 1999 Unknown [id number] 2.16.8 40.1.219618.3.579.2.627 1999 Unknown [id number] 2.16.8 40.1.614684.3.579.2.627 1999 Unknown [id number] 2.16.8 40.1.173472.3.579.2.627 1999 Unknown [id number] 2.16. 840.1.126573.3.579.2.479 1999 Unknown [id number] 2.16 840.1.377966.3.579.2479 1999 Unknown [id number] 2.16 840.1.566724.3.579.2479 Unknown [id number] Unknown [facility] [id number] Unknown [facility] [id number] Unknown [facility] [id number] Unknown [id number] 2.16.8 40.1.017751.3.579.2.462 Unknown [id number] 2.16.8 40.1.748924.3.579.2.462 Unknown [id number] 2.16.8 40.1.946654.3.579.2.462 Unknown [id number] 2.16.8 40.1.145971.3.579.2.462 Unknown [id number] 2.16.8 40.1.831548.3.579.2.462 Unknown [id number] 2.16.8 40.1.409679.3.579.2.462 Unknown [id number] 2.16.8 40.1.896107.3.579.2.462 Unknown [id number] 2.16.8 40.1.456065.3.579.2.462 Unknown [id number] 2.16.8 40.1.864155.3.579.2.462 Unknown [id number] 2.16.8 40.1.002614.3.579.2.462 Unknown [id number] 2.16.8 40.1.485815.3.579.2.462 Unknown [id number] 2.16.8 40.1.051572.3.579.2.462 Unknown [id number] 2.16.8 40.1.921914.3.579.2.462 Unknown [id number] 2.16.8 40.1.020153.3.579.2.462 Unknown [id number] 2.16.8 40.1.091418.3.579.2.462 Unknown [id number] 2.16.8 40.1.531096.3.579.2.462 Unknown [id number] 2.16.8 40.1.042083.3.579.2.462 Unknown [id number] 2.16.8 40.1.656604.3.579.2.462 Unknown [id number] 2.16.8 40.1.857410.3.579.2.462 Social History Date Type Detail Facility Start: 12-31-2021 End: 07-28-2024 Tobacco smoking status NHIS Never smoked tobacco [facility] Start: 12-31-2021 End: 08-19-2022 Tobacco use and exposure Smokeless tobacco non-user [facility] Start: 12-31-2021 End: 10-14-2022 Alcohol intake Ex-drinker (finding) [facility] Start: 06-27-2013 End: 08-19-2022 Tobacco Comment dad smokes outside [facility] Start: 2000 Sex Assigned At Female C [facility] Start: 06-28-2022 End: 08-19-2022 Exposure to SARS-CoV-2 (event) Not sure [facility] Start: 2000 Sex Assigned At Not on file [employer] Work Phone: Start: 08-09-2022 End: 08-09-2022 Tobacco smoking status NHIS Unknown if ever smoked [facility] Work Phone: Start: 10-24-2020 Spouse/ Signif icant Other [facility] Work Phone: Start: 07-12-2022 [facility] Goals Date Patient Goal Desired Activity /State [...] bilat biceps and triceps [facility] [place] 04-02-2023 Functional Status Rooming in [facility] 04-01-2023 Functional Status [facility] 04-01-2023 Functional Status Independent [facility] 04-01-2023 Functional Status [facility] 03-30-2023 Functional Status Home independently [facility] 03-07-2023 Functional Status Ambulating in room [facility] Mental Status Date Assessment Result Facility 03-07-2023 Mental Status Orientation Oriented x 4 [facility] Clinical Notes 07-09-2022 to 02-18-2024 Laboratory [...] 02/19/2024 1:39:46 AM Ordering Provider: KIRSTEN CISNEROS [facility] 10-15-2023 Evaluation + Plan note Diagnostic Tests PendingVitamin B12 Level 10/15/23Folate Level 10/15/23 Future Scheduled TestsGlucose Level 07/20/23Lipid Profile 07/20/23 [facility] 04-02-2023 Evaluation + Plan note Extrac barbara from: Title:Clinical Document Author:LONG DICKERSON MD Date:04/02/23 Subjective Comfortable with oral Motrin Lochia small. Baby is eating well per bottle Stayed overnight due to elevated bili levels in baby Objective Looks very well. Independent in room. Abdomen: Soft, uterus firm at U- 2 Extremities: Nontender with 1+ edema VITALS MbnmdmQsgmNNViqegDHYhL5UUX1KqenGs(kg) 04/02 00:3136.6--178467--31/20 78.0 04/01 16:2036.5--7916---- 04/01 08:4136.1--8114---- 03/31 23:3036.6--8416---- [...] q6h, 03/30/23 19:48:00 EDT Problems (4) Anxiety ([id number]) Body mass index 30+ - obesity (078446994) (196229285) UTI (urinary tract infection) ([id number]) ASSESSMENT/PLAN: PPD #2 after . Doing very well. Home today. Extracted from: Title:Clinical Document Author:LONG DICKERSON MD Date:03/31/23 Subjective Comfortable with oral Motrin Lochia small. Baby is nursing well. . Objective Looks very well. Independent in room. CVS: RRR Lungs: CTA B Abdomen: Soft, uterus firm at U- 1 Extremities: Nontender with 1+ edema VITALS HelahvPuqxTWMapggPSIjQ0LRG9UgasTv(kg) 03/31 08:3636.8--7816----03/30 78.0 03/31 05:4936--8216---- 03/31 02:00 RA 03/30 20:15----96174--BW 03/30 20:00----8018--RA 24 Hr Tmax: 36.8 at [...] q6h, 03/30/23 19:48:00 EDT Problems (4) Anxiety ([id number]) Body mass index 30+ - obesity (397678672) (380170951) UTI (urinary tract infection) ([id number]) ASSESSMENT/PLAN: PPD #1 after [employer] delivery [...] SYSTEMS: All negative ACTIVE PROBLEMS: (4) Anxiety ([id number]) Body mass index 30+ - obesity (989614162) (919402115) UTI (urinary tract infection) ([id number]) ALLERGIES: (1) CeleXA FAMILY HISTORY: No inheritable diseases. SOCIAL HISTORY: . Denies tobacco use Denies alcohol use. No illicit drug use. PHYSICAL EXAM: VITALS: ZpzncuFpgaAITqhkeFQThS1DEB6CuioYz(kg) 03/30 10:5735.6--7518----03/30 78.0 03/30 10:0535.9 03/30 09:0536.1 [...] Date:04/20/2023 02:00:00 PM Scheduled Provider:SUNIL GRAHAM MD [facility] Appointment Type:[facility] 06-22-2023 Note day #2 progress note: [...] MARTINEZ NÚÑEZ MD on 04/01/2023 09:01 AM [facility]21[facility]2023 Hospital Discharge instructions Patient Education 03/31/2023 [...] work with your health care provider or curriculum consultant. If you are not : ?Avoid [...] about methods of control (contraception). Medicines Take imxb-uyp-ddhdibh and prescription medicines only as told by [...] 07/24/2008 Document Revised: 09/30/2018 Document Reviewed: 07/11/2018 [employer] Patient Education 2020 [employer]. 03/31/2023 12:34:52 7b- Depression and Blues (07/2020) [...] psychosis. Often, a screening tool called the [place] Depression Scale is used to diagnose depression [...] music. Avoid alcohol. Ask for help with transformation architect, cooking, grocery shopping, or running errands as needed. Do nottry to do everything. Talk to people close to you about how you are feeling. Get support from your partner, family members, and friends. Try to stay positive in how you think. Think about the things you are grateful for. Do not spend a lot of time alone. Only take iqgh-xjj-fnghixs or prescription medicine as directed by your [...] not doing well or get worse. Resource: [facility] Patient Information 2015 [facility]. This information is not intended to replace advicegiven to you by your health care provider. Make sure you discuss any questions you have with your health care provider. Follow Up Care 03/30/2023 06:39:24 With:OLNG DICKERSON Address: [address] [place] [address] [facility] [address]- [phone] Business (1) When: Unknown [facility] 06-21-2023 Note Date of Service 03/31/23 Chief Complaint Subjective 22 [facility] Doing well. pain [...] 1 herlinda, Perineum, AsDirected benzocaine topical 20% [place] 1 spray(s), Perineum, q1h bisacodyl 10 mg [...] SUNIL GRAHAM MD on 03/31/2023 11:37 AM [facility]21[facility]2023 Anesthesiology Consult note Patient: LUZ OLIVEIRA Age: 22 years Sex: Female : 2000 Associated Diagnoses: None Author: JENNIFER MERA REHAB RN-PRESIDENT [employer] Assessment Postanesthesia assessment Vitals: Vital signs from flowsheet : Vital Signs 03/31/2023 5:49 EDT Temperature Temporal Artery 36 DegC Heart Rate Monitored 82 bpm Respiratory Rate 16 br/min Systolic Blood Pressure Non-Invasive 109 mmHg Diastolic Blood Pressure Non-Invasive 54 mmHg [facility] 03/30/2023 20:15 EDT Heart Rate Monitored [...] by JENNIFER MERA on 03/31/2023 06:15 AM [facility]23 Note Patient seen at 1730 and [...] LONG DICKERSON MD on 03/30/2023 05:30 PM [facility] Note Patient seen at 1730 and [...] LONG DICKERSON MD on 03/30/2023 05:30 PM [facility] Note Patient seen at 1730 and [...] LONG DICKERSON MD on 03/30/2023 05:30 PM [facility]23 Note CHIEF COMPLAINT: Membranes ruptured with [...] SYSTEMS: All negative ACTIVE PROBLEMS: (4) Anxiety ([id number]) Body mass index 30+ - obesity (708650031) (676389159) UTI (urinary tract infection) ([id number]) ALLERGIES: (1) CeleXA FAMILY HISTORY: No inheritable diseases. SOCIAL HISTORY: . Denies tobacco use Denies alcohol use. No illicit drug use. PHYSICAL EXAM: VITALS: HomkwyOjbvJCSsvygSWPvR5QSW3FrueOn(kg) 03/30 10:5735.6--7518----03/30 78.0 03/30 10:0535.9 03/30 09:0536.1 [...] LONG DICKERSON MD on 04/02/2023 11:08 AM [facility]06-20-2023 Anesthesiology Consult note Patient: LUZ OLIVEIRA Age: 22 years Sex: Female : 2000 Associated Diagnoses: None Author: JENNIFER MERA REHAB RN-PRESIDENT [employer] Preoperative Information laboring Anesthesia history Patient's history: [...] Problem list: Medical Anxiety / SNOMED CT [id number] / Confirmed Body mass index 30+ - obesity / SNOMED CT 806218140 / Confirmed / SNOMED CT 431381630 / Confirmed UTI (urinary tract infection) / SNOMED CT [id number] / Confirmed, Active Problems (4) Anxiety Body mass index 30+ - obesity UTI (urinary tract infection) Histories Past Medical History: Active Anxiety ([id number]) UTI (urinary tract infection) ([id number]) Family History: Cancer Grandparent Comments: 10/22/2022 14:27 AUGIE Navarro Poonam Sanchez FINANCIAL SUPERVISOR maternal, brain Cardiac pacemaker Mother Diabetes mellitus Mother Asthma Grandparent Breast cancer Grandparent Heart disease Mother HTN - Hypertension Father COPD Grandparent Diabetes Grandparent Procedure history: [place] tooth ([id number]). Social History Social & Psychosocial Habits Alcohol [...] Signs(last 24 hrs) Last Charted Heart Rate Qqjuvdrmg39 bpm (MAR 30 10:57) Resp Rate 18 br/min (MAR 30 10:57) SRF051 mmHg (MAR 30 10:57) DBPL 59mmHg (MAR 30 10:57) BMI32.47 (MAR 30 07:49) Measurements from flowsheet : Measurements 03/30/2023 7:49 EDT Height 155.0 cm Admission Weight 78 kg [place] Body Weight 47.85 kg BSA Admission 1.77 [...] Height 155.0 cm Admission Weight 78 kg [place] Body Weight 47.85 kg BSA Admission 1.77 [...] Baby For Adoption No Surrogate No Discharge [place] Physician [facility] Participant No [...] Teaching Evaluation Refused information Preferred Written Language Cymraes Preferred Spoken Language Cymraes Chief Complaint SROM Mode of Arrival Ambulatory Information Given by Patient Patient's Current Physicians Dr [facility] Emergency Contact Number Luis Daniel Oliveira [phone] Belongings At Bedside Cell phone, Dry Sand Molder Personal Home Medications Received No home medications [...] FHR Interpretation Category: Category One 03/30/2023 7:14 [facility] History and Physical History and Physical . Assessment and Plan [place] [employer] Anesthesiologists (ASA) physical status classification: Class II. Anesthetic Preoperative Plan Anesthetic technique: Epidural. Informed consent: signed by patient. Digitally Signed by JENNIFER MERA on 03/30/2023 01:37 PM [facility]06-20-[facility]23 Note Date of Service 03/30/23 Chief Complaint SROM History of Present Illness 22 yo G1@39.2 presents with large gush of fluid around 0600 and regular contractions. c/bobesity and recent growth US AC 7%le overall 15%le. Noted blood tinged fluid. Growth at 37 weeks for obesity showed borderline low fluid 5 cm, growth in 15%le. 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 ___ Rogers diet. Avoid caffeine, chocolate, alcohol, spiced/greasy foods. [...] the nearest Emergency Room for assistance. Form [id number] D: 09/18 Document Released: 09/27/2006 Document Revised: 09/15/2012 Document Reviewed: 09/27/2006 ExitCare Patient Information 2012 [employer]. Follow Up Care 03/07/2023 19:56:20 With:WILTON AN, MARTINEZ Bautista Address: [address] [place] [address] [facility] [address] [phone] When:03/09/2023 [facility] 05-27-2023 Hospital Discharge instructions Patient Education 03/06/2023 18:27:44 7 - Labor and Delivery Outpatient Instructions (CUSTOM) COLP LABOR AND DELIVERY OUTPATIENT HOME-GOING INSTRUCTIONS _X_ [...] crackers, bananas, Jell-O, cooked carrots, applesauce. ___ Rogers diet. Avoid caffeine, chocolate, alcohol, spiced/greasy foods. [...] the nearest Emergency Room for assistance. Form [id number] D: 09/18 Document Released: 09/27/2006 Document Revised: 09/15/2012 Document Reviewed: 09/27/2006 ExitCare Patient Information 2011 [employer]. [facility] 04-18-2023 Hospital Discharge instructions Patient Education 01/26/2023 03:27:22 7 - Labor and Delivery Outpatient Instructions (CUSTOM) COLP LABOR AND DELIVERY OUTPATIENT HOME-GOING INSTRUCTIONS _X_ [...] crackers, bananas, Jell-O, cooked carrots, applesauce. ___ Rogers diet. Avoid caffeine, chocolate, alcohol, spiced/greasy foods. [...] the nearest Emergency Room for assistance. Form [id number] D: 09/18 Document Released: 09/27/2006 Document Revised: 09/15/2012 Document Reviewed: 09/27/2006 ExitCare Patient Information 2012 [employer]. Follow Up Care 01/26/2023 00:53:10 With:Follow up with primary care provider Address:Unknown When: Unknown [facility] 02-25-2023 Miscellaneous Notes* Telephone Encounter - Alex Garcia DO - 12/05/2022 5:08 PM EST Not a CFM patient documented [facility] Hospital Discharge instructions Patient Education 11/18/2022 13:18:57 [...] crackers, bananas, Jell-O, cooked carrots, applesauce. ___ Rogers diet. Avoid caffeine, chocolate, alcohol, spiced/greasy foods. [...] the nearest Emergency Room for assistance. Form [id number] D: 09/18 Document Released: 09/27/2006 Document Revised: 09/15/2012 Document Reviewed: 09/27/2006 ExitCare Patient Information 2012 [employer]. Follow Up Care 11/18/2022 11:50:05 With:SUNIL GRAHAM Address: [address] [place] [address] [facility] [address]- [phone] Business (1) When: Unknown [facility] 01-19-2023 NoteHNO ID: [id number] Author: Tad Shaw DO Service: Obstetrics Author [...] Tad Shaw DO 4:21 AM 10/29/2022[facility]01-19-2023 NoteHNO ID: [id number] Author: Tad Shaw DO Service: Obstetrics Author [...] intractable nausea/vomiting. She was sent her from [facility] Main ED. In the ED, patient was [...] Diagnosis Date Cognitive disorder IEP per the [facility] Kidney stone [...] October 29, 2022 TIME: 3:25 [facility]01-19-2023 NoteCOVID 19 RESULT: SARS-CoV-2 (Agent of COVID-19) Not Detected by RT-PCR or equivalent method. This test has been authorized by FDA under an Emergency Use Authorization (EUA). INFLUENZA A PCR: Negative for Influenza A by RT-PCR INFLUENZA B PCR: Negative for Influenza B by RT-PCR RSV PCR: Negative for Respiratory Syncytial Virus (RSV) by [facility] CenterComment on above:Performed By: #### 28787-6 ####[facility] LABORATORYCLIA [id number] [place] [address] [id number] Miscellaneous Notes* Quick Notes - Gretel Quintana [...] vaccine). Gretel Quintana MD documented in this encounterReg[facility]01-04-2023 Nurse Note* Aimee Desir Ma - 10/14/2022 11:01 AM EST Movement? Flutters Vaginal Bleeding: NO Vaginal fluid leakage of fluid: NO Contractions: no contractions documented in this encounterRegency Hospital [facility]12-08-2022 NoteHNO ID: [id number] Author: Braulio Hollingsworth MD Service: ? Author Type: Physician Type: Progress Notes Filed: 09/17/2022 2:28 PM Note Text: Please refer to quick note and flow sheet. [facility]2022 NoteHNO ID: [id number] Author: Braulio Hollingsworth MD Service: ? 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 loratadine (CLARITIN) 10 mg tablet Take 1 tablet by mouth once daily. fluticasone (FLONASE) 50 mcg/actuation nasal spray Use 1 [place] in each nostril once daily. No current [...] 4 weeks or sooner prn. Braulio Hollingsworth [facility]11-09-2022 NoteHNO ID: [id number] Author: Braulio Hollingsworth MD Service: ? Author Type: Physician Type: Progress Notes Filed: 08/19/2022 5:28 PM Note Text: OB point of care ultrasound was performed. See imaging tab for details. 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 No current [...] prn. Braulio Hollingsworth MD documented in this encounterRegency [facility]11-09-2022 Instructions* Patient Instructions* Braulio Hollingsworth MD - 08/19/2022 1:48 PM EST Please select the following link to access the [facility] Your Guide to a Healthy . [email or web address] documented in this encounterRegency Hospital [facility]11-09-2022 History of Present illness Narrative* Braulio Hollingsworth MD - 08/19/2022 1:41 PM EST OB point of care ultrasound was performed. See imaging tab for details. Braulio Hollingsworth MD documented in this encounterRegency Hospital [facility]11-09-2022 Nurse Note* Jennifer Stevenson MA - 08/19/2022 1:07 PM EST Movement? Too early Vaginal Bleeding: YES/MD NOTIFIED-Has had for 2 weeks Vaginal fluid leakage of fluid: NO Contractions: no contractions documented in this encounterRegency Hospital [facility]11-04-2022 NoteHNO ID: [id number] Author: Zuahir Condon DO Service: Obstetrics Author Type: Resident [...] 14, 2022 TIME: 9:44 PM PAGER/CONTACT #: [phone] [facility] NoteHNO ID: [id number] Author: Zuhair Condon DO Service: Obstetrics Author [...] Patient states that she originally went to [place] ED on 08/09/22. 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 [...] of discharge (more content not included)...[facility]10-31-2022 Miscellaneous Notes* Telephone Encounter - Nisa Murphy - 08/10/2022 9:31 AM EDT Patient was in ED for bleeding. Not currently bleeding has new OB appointment 08/19. Please advise if you would like to see her sooner. documented in this encounterRegency [facility]10-25-2022 Hospital Discharge instructions* Discharge Instructions* Melania Mitchell MD - 08/04/2022 1:22 PM EDT Please call your OB today to schedule a follow up visit in the next 2 days. * Attachments The following attachments cannot be sent through Care Everywhere. * Miscarriage: Threatened (Cymraes) documented in this encounterSUMMA Work Phone: [phone] Miscellaneous Notes* Telephone Encounter - Vernóica Alegre - 07/09/2022 12:24 PM EDT No [...] 09, 2022 12:24 PM documented in this encounterRegency Hospital [facility] WestEvaluation + Plan note Future Appointments Appointment Date:11/16/2022 02:00:00 PM Scheduled Provider:SUNIL GRAHAM MD Location:[facility] Appointment Type: OV OB Routine Follow [facility] Evaluation + Plan note Future Appointments Appointment Date:12/14/2022 02:15:00 PM Scheduled Provider:SUNIL GRAHAM MD Location[facility] Appointment Type: OV OB Routine Follow Up Appointment Date:12/23/2022 08:30:00 AM Scheduled Provider: Location:[facility] Appointment Type:US OB > 14 wks Future Scheduled Tests Radiology* US OB Limited/Transvaginal 01/11/23 * US OB > 14 weeks 12/23/22 [facility] Evaluation + Plan note Future Appointments [...] Antibody 12/14/22 Radiology* US OB Limited/Transvaginal 01/11/23 [facility] Evaluation + Plan note Future Appointments Appointment Date:01/25/2023 01:00:00 PM Scheduled Provider:SUNIL GRAHAM MD Location[facility] Appointment Type: OV OB Routine Follow Up [...] Antibody 12/14/22 Radiology* US OB Limited/Transvaginal 01/11/23 [facility] Evaluation + Plan note Future Appointments Appointment Date:02/01/2023 01:15:00 PM Scheduled Provider:SUNIL GRAHAM MD Location:[facility] Appointment Type:[facility] OB Routine Follow Up Appointment Date:03/15/2023 02:00:00 PM Scheduled Provider: Location:[facility] Appointment Type:US OB > 14 wks [...] * US OB > 14 weeks 03/15/23 [facility] Evaluation + Plan note Future Appointments Appointment Date:03/09/2023 01:45:00 PM Scheduled Provider:LONG DICKERSON MD Location:[facility] Appointment Type:[facility] OB Routine Follow Up Appointment Date:03/15/2023 02:00:00 PM Scheduled Provider: Location:[facility] Appointment Type:US OB > 14 wks [...] * US OB > 14 weeks 03/15/23 [facility] Evaluation + Plan note Future Appointments Appointment Date:03/15/2023 02:00:00 PM Scheduled Provider: Location:[facility] Appointment Type:US OB > 14 wks Appointment Date:03/16/2023 02:30:00 PM Scheduled Provider:LONG DICKERSON MD Location:[facility] Appointment Type:[facility] OB Routine Follow Up Diagnostic Tests Pending [...] * US OB > 14 weeks 03/15/23 [facility] Evaluation + Plan note Future Appointments Appointment Date:03/15/2023 02:00:00 PM Scheduled Provider: Location:[facility] Appointment Type:US OB > 14 wks Appointment Date:03/16/2023 02:30:00 PM Scheduled Provider:LONG DICKERSON MD Location:[facility] Appointment Type:[facility] OB Routine Follow Up Future Scheduled Tests [...] * US OB > 14 weeks 03/15/23 [facility] Evaluation + Plan note Future Appointments Appointment Date:03/16/2023 02:30:00 PM Scheduled Provider:LONG DICKERSON MD Location:[facility] Appointment Type: OV OB Routine Follow Up [...] Urine 01/25/23 Radiology* US OB Limited/Transvaginal 01/11/23 [facility] Evaluation + Plan note Future Appointments Appointment Date:07/28/2024 08:30:00 AM Scheduled Provider:KIRSTNE CISNEROS Location[facility] Appointment Type:[facility] Annual Future Scheduled Tests Laboratory* Glucose Level 07/20/23 * Lipid Profile 07/20/23 [facility] Evaluation + Plan note Future Appointments Appointment Date:08/25/2024 07:30:00 AM Scheduled Provider:KIRSTEN CISNEROS Location:[facility] Appointment Type:PC OV Future Scheduled Tests Radiology* CT Head or Brain w/o Contrast 07/28/24 * CT Spine Cervical w/o Contrast 07/28/24 [facility] Evzdyqxukn note* Diagnosis Threatened miscarriage in early - Primary Threatened , unspecified as to episode of care documented in this encounter [facility] Work Phone: Evaluation note* Diagnosis Onset Date Resolution Status Acute lumbar myofascial strain acute Blunt abdominal trauma acute Cervical strain, acute acute Chest wall contusion acute Concussion without loss of consciousness acute Lumbar radiculopathy, acute acute [facility] Work Phone: Evaluation note* Diagnosis Encounter for supervision of normal first in first trimester- Primary Supervision of normal first documented in this encounter [facility] note* Diagnosis with uncertain dates in first trimester- Primary documented in this encounter [facility] note* Diagnosis Encounter for supervision of normal first in second trimester- Primary Supervision of normal first Need for influenza vaccination Need for prophylactic vaccination and inoculation against influenza 15 weeks gestation of state, incidental [facility] N[facility]ative No data available for this section [facility] Hospital Discharge instructions Additional Instructions Follow-up with your COPPERSMITH APPRENTICE. Return if you have worsening symptoms or worsening abdominal pain/fever.[facility] Work Phone: Hospital Discharge instructions No data available for this section [facility] Progress note No data available for this section [facility] Reason for referral (narrative)* Diagnostic Procedure Only (Routine) - Pending Review Specialty Diagnoses / Procedures Referred By Contac t Referred To Contact [facility] Diagnoses Encounter for supervision of normal first in first trimester Procedures NUCHAL TRANSLUCENCY WHI US NUCHAL TRANSLUCENCY 1ST GESTATION Braulio Hollingsworth MD [address] [facility] [address] [place] [address] [facility] [address] [place] [address] Referral ID Status Reason Start Date Expiration Date Visits Requested Visits Authorized [id number] Pending Review Auto-Generat ed Referral 08/19/2022 08/19/2023 1 1 [facility] Diagnostic Procedure Only (Routine) - Authorized Specialty Diagnoses / Procedures Referred By Contac t Referred To Contact [facility] Diagnoses Encounter for supervision of normal first in second trimester Procedures OBSTETRIC ULTRASOUND WHI US PREG UTERUS AFTER 1ST TRIMEST GESTATION Gretel Quintana MD [address] [id number] [facility] [address] [place] [address] Referral ID Status Reason Start Date Expiration Date Visits Requested Visits Authorized [id number] Authorized Auto-Generat ed Referral 10/14/2022 10/14/2023 1 1 [facility] Summary Purpose Family History No Family [...] Will No August 09 2:12pm Power of Energy Assistant No August 09, 2022 2:12pm Advance Directive Response Recorded Date/ Time Advance Directives No June 7:50am Living Will No August 09 1:12pm Power of Energy Assistant No August 09, 2022 1:12pm Chief [...] section and content) DATE CREATED AUTHOR 09/19/2018 [facility] DATE CREATED AUTHOR AUTHOR'S ORGANIZ ATION 12/26/2018 [facility] DATE CREATED AUTHOR AUTHOR'S ORGANIZ ATION 04/29/2019 [facility] DATE CREATED AUTHOR AUTHOR'S ORGANIZ ATION 12/25/2019 [facility] DATE CREATED AUTHOR AUTHOR'S ORGANIZ ATION 03/17/[address] [facility] DATE CREATED AUTHOR AUTHOR'S ORGANIZ ATION 08/29/2021 [facility] DATE CREATED AUTHOR AUTHOR'S ORGANIZ ATION 08/05/[address] [facility] DATE CREATED AUTHOR AUTHOR'S ORGANIZ ATION 11/13/[address] [facility] DATE CREATED AUTHOR AUTHOR'S ORGANIZ ATION 11/14/2022 [facility] DATE CREATED AUTHOR AUTHOR'S ORGANIZ ATION 02/20/2024 [facility] ([place]) DATE CREATED AUTHOR AUTHOR'S ORGANIZ ATION 08/20/2024 [facility] DATE CREATED AUTHOR AUTHOR'S ORGANIZ ATION 06/27/[address] [facility] DATE CREATED AUTHOR AUTHOR'S ORGANIZ ATION 07/27/[address] [facility] Source Comments (unrecognize d section and content) In the event this informatio n is protected by the Federal Confidentiality of Alcohol and Drug Abuse Patient Records regulations: The Federal rules restrict any use of the information to criminally investigate or prosecute any alcohol or drug abuse patient.[facility] the event this information is protected by the Federal Confidentiality of Alcohol and Drug Abuse Patient Records regulations: The Federal rules restrict any use of the information to criminally investigate or prosecute any alcohol or drug abuse patient.[facility] WestIn the event this information is protected by the Federal Confidentiality of Alcohol and Drug Abuse Patient Records regulations: The Federal rules restrict any use of the information to criminally investigate or prosecute any alcohol or drug abuse patient.[facility] WestIn the event this information is protected by the Federal Confidentiality of Alcohol and Drug Abuse Patient Records regulations: The Federal rules restrict any use of the information to criminally investigate or prosecute any alcohol or drug abuse patient.[facility] WestIn the event this information is protected by the Federal Confidentiality of Alcohol and Drug Abuse Patient Records regulations: The Federal rules restrict any use of the information to criminally investigate or prosecute any alcohol or drug abuse patient.[facility] WestIn the event this information is protected by the Federal Confidentiality of Alcohol and Drug Abuse Patient Records regulations: The Federal rules restrict any use of the information to criminally investigate or prosecute any alcohol or drug abuse patient.[facility] WestIn the event this information is protected by the Federal Confidentiality of Alcohol and Drug Abuse Patient Records regulations: The Federal rules restrict any use of the information to criminally investigate or prosecute any alcohol or drug abuse patient.[facility] Reason for Visit (unrecogniz ed section and [...] Role: Primary Care Physician Address: Address: [address] [place] [id number] Care Team Related Persons Name: RASHMI MTZ Address: Home [address] [place] [phone] [place] Name: MARGARITO MTZ Address: Home [address] [place] [address] [phone] [place] Name: MARGARITO MTZ Address: Home [address] [place] [address] [phone] [place] Name: MARGARITO MTZ Address: Home [address] [place] [address] [phone] [place] Name: MARGARITO MTZ Address: Home [address] [place] [address] [phone] [place] Name: MARGARITO MTZ Address: Home [address] [place] [address] [phone] [place] Name: MARGARITO MTZ Address: Home [address] [place] [address] [phone] [place] Name: MARGARITO MTZ Address: Home [address] [place] [address] [phone] [place] Name: MARGARITO MTZ Address: Home [address] [place] [address] [phone] [place] Care Team Personnel Name: MAXWELL GOMEZ MD Member Role: Primary Care Physician Address: Address: [address] [place], [place] [id number] Care Team Related Persons Name: RASHMI MTZ Address: Home [address] [place] [phone] [place] Name: MARGARITO MTZ Address: Home [address] [place], [place] [phone] [place] Name: MARGARITO MTZ Address: Home [address] [place], [place] [phone] [place] Name: MARGARITO MTZ Address: Home [address] [place] [phone] [place] Name: MARGARITO MTZ Address: Home [address] [place] [address] [phone] [place] Name: MARGARITO MTZ Address: Home [address] [place] [address] [phone] [place] Name: MARGARITO MTZ Address: Home [address] [place] [address] [phone] [place] Name: MARGARITO MTZ Address: Home [address] [place] [address] [phone] [place] Name: MARGARITO MTZ Address: Home [address] [place] [address] [phone] Patient Care team informatio n (unrecognized section and content) Care Team Personnel Name: MAXWELL GOMEZ MD Member Role: Primary Care Physician Address: Address: [address] [place], [place] [phone] [place] Care Team Related Persons Name: RASHMI MTZ Address: Home [address] [phone] [place] Name: MARGARITO MTZ Address: Home [address] [place] [address] [phone] [place] Name: MARGARITO MTZ Address: Home [address] [place] [address] [phone] [place] Name: MARGARITO MTZ Address: Home [address] [place] [address] [phone] [place] Name: ELVIA MTZRI Address: Home [address] [place] [address] [phone] [place] Name: MARGARITO MTZ Address: Home [address] [place], [place] [phone] [place] Name: MARGARITO MTZ Address: Home [address] [place], [place] [phone] [place] Name: MARGARITO MTZ Address: Home [address] [place], [place] [phone] [place] Name: MARGARITO MTZ Address: Home [address] [place], [place] [phone] [place] Care Team Personnel Name: MAXWELL GOMEZ MD Member Role: Primary Care Physician Address: Address: [address] [place] [phone] [place] Care Team Related Persons Name: RASHMI MTZ Address: Home [address] [phone] [place] Name: MARGARITO MTZ Address: Home [address] [place], [place] [phone] [place] Name: MARGARITO MTZ Address: Home [address] [place], [place] [id number] [place] Name: MARGARITO MTZ Address: Home [address] [place], [place] [phone] [place] Name: MARGARITO MTZ Address: Home [address] [place], [place] [phone] [place] Name: MARGARITO MTZ Address: Home [address] [place], [place] [phone] [place] Name: MARGARITO MTZ Address: Home [address] [place], [place] [phone] [place] Name: MARGARITO MTZ Address: Home [address] [place], [place] [phone] [place] Name: MARGARITO MTZ Address: Home [address] [place], [place] [phone] [place] Care Team Personnel Name: SUNIL GRAHAM MD 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: P4 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 Provider Member Role: Primary Care Physician Address: Address: [address] [place], [place] [address] [facility] [place], [place] [address] Care Team Related Persons Name: RASHMI MTZ Address: Home [address] [phone] [place] Name: MARGARITO MZT Address: Home [address] [place], [place] [phone] [place] Name: MARGARITO MTZ Address: Home [address] [place], [place] [phone] [place] Name: MARGARITO MTZ Address: Home [address] [place], [place] [phone] [place] Name: ELVIA MTZRI Address: Home [address] [place], [place] [phone] [place] Name: ELVIA MTZRI Address: Home [address] [place], [place] [phone] [place] Name: ELVIA MTZRI Address: Home [address] [place], [place] [phone] [place] Name: ELVIA MTZRI Address: Home [address] [place], [place] [phone] [place] Name: ELVIA MTZRI Address: Home [address] [place], [place] [phone] [place] Care Team Personnel Name: SUNIL GRAHAM MD Position: P4 COPPERSMITH APPRENTICE Provider Member Role: Primary Care Physician Address: Address: [address] [place] [phone] Care Team Related Persons Name: RASHMI MTZ Address: Home [address] [phone] [place] Name: MARGARITO MZT Address: Home [address] [place], [place] [phone] [place] Name: ELVIA MTZRI Address: Home [address] [place], [place] [phone] [place] Name: MARGARITO MTZ Address: Home [address] [place], [place] [phone] [place] Name: ELVIA MTZRI Address: Home [address] [place], [place] [phone] [place] Name: MARGARITO MTZ Address: Home [address] [place], [place] [phone] [place] Name: MARGARITO MTZ Address: Home [address] [place], [place] [phone] [place] Name: MARGARITO MTZ Address: Home [address] [place], [place] [phone] [place] Name: MARGARITO MTZ Address: [address] [place], [place] [phone] [place] Care Team Personnel Name: MARTINEZ NÚÑEZ MD Position: P4 COPPERSMITH APPRENTICE Provider Member Role: Primary Care Physician Address: Address: [address] [place] [phone] Care Team Related Persons Name: RASHMI MTZ Address: Home [address] [phone] [place] Name: MARGARITO MTZ Address: Home [address] [place], [place] [phone] [place] Name: MARGARITO MTZ Address: Home [address] [place], [place] [phone] [place] Name: MARGARITO MTZ Address: Home [address] [place], [place] [phone] [place] Name: MARGARITO MTZ Address: Home [address] [place], [place] [phone] [place] Name: MARGARITO MTZ Address: Home [address] [place], [place] [phone] [place] Name: MARGARITO MTZ Address: Home [address] [place], [place] [phone] [place] Name: MARGARITO MTZ Address: Home [address] [place] [address] [phone] [place] Name: MARGARITO MTZ Address: Home [address] [place], [place] [phone] Care Team Personnel Name: MARTINEZ NÚÑEZ MD Position: P4 COPPERSMITH APPRENTICE Provider Member Role: Primary Care Physician Address: Address: [address] [place] [phone] Care Team Related Persons Name: RASHMI MTZ Address: Home [address] [phone] [place] Name: MARGARITO MTZ Address: Home [address] [place], [place] [phone] [place] Name: MARGARITO MTZ Address: Home [address] [place], [place] [phone] [place] Name: MARGARITO MTZ Address: Home [address] [place], [place] [id number] [place] Name: MARGARITO MTZ Address: Home [address] [place], [place] [phone] [place] Name: MARGARITO MTZ Address: Home [address] [place], [place] [phone] [place] Name: MARGARITO MTZ Address: Home [address] [place], [place] [phone] [place] Name: MARGARITO MTZ Address: Home [address] [place], [place] [phone] [place] Name: MARGARITO MTZ Address: Home [address] [place], [place] [phone] [place] Care Team Personnel Name: MARTINEZ NÚÑEZ MD Position: P4 COPPERSMITH APPRENTICE Provider Member Role: Primary Care Physician Address: Address: [address] [place] [phone] Care Team Related Persons Name: RASHMI MTZ Address: Home [address] [phone] [place] Name: MARGARITO MTZ Address: Home [address] [place], [place] [phone] [place] Name: MARGARITO MTZ Address: Home [address] [place], [place] [phone] [place] Name: MARGARITO MTZ Address: Home [address] [place], [place] [phone] [place] Name: MARGARITO MTZ Address: Home [address] [place], [place] [phone] [place] Name: MARGARITO MTZ Address: Home [address] [place], [place] [phone] [place] Name: MARGARITO MTZ Address: Home [address] [place], [place] [phone] [place] Name: MARGARITO MTZ Address: Home [address] [place], [place] [phone] [place] Name: MARGARITO MTZ Address: Home [address] [place], [place] [phone] [place] Care Team Personnel Name: MARTINEZ NÚÑEZ MD Position: P4 COPPERSMITH APPRENTICE Provider Member Role: Primary Care Physician Address: Address: [address] [place] [phone]- Care Team Related Persons Name: RASHMI MTZ Address: Home [address] [phone] [place] Name: MARGARITO MTZ Address: Home [address] [place], [place] [phone] [place] Name: MARGARITO MTZ Address: Home [address] [place], [place] [phone] [place] Name: MARGARITO MTZ Address: Home [address] [place], [place] [phone] [place] Name: MARGARITO MTZ Address: Home [address] [place], [place] [phone] [place] Name: MARGARITO MTZ Address: Home [address] [place], [place] [phone] [place] Name: MARGARITO MTZ Address: Home [address] [place], [place] [phone] [place] Name: MARGARITO MTZ Address: Home [address] [place], [place] [phone] [place] Name: MARGARITO MTZ Address: Home [address] [place], [place] [phone] [place] Care Team Personnel Name: MARTINEZ NÚÑEZ MD Position: P4 COPPERSMITH APPRENTICE Provider Member Role: Primary Care Physician Address: Address: [address] [place] [id number] [place] [address] Care Team Related Persons Name: RASHMI MTZ Address: Home [address] [phone] [place] Name: MARGARITO MTZ Address: Home [address] [place], [place] [phone] [place] Name: MARGARITO MTZ Address: Home [address] [place], [place] [phone] [place] Name: MARGARITO MTZ Address: Home [address] [place], [place] [phone] [place] Name: MARGARITO MTZ Address: Home [address] [place], [place] [phone] [place] Name: MARGARITO MTZ Address: Home [address] [place], [place] [phone] [place] Name: MARGARITO MTZ Address: Home [address] [place], [place] [phone] [place] Name: MARGARITO MTZ Address: Home [address] [place], [place] [phone] [place] Name: MARGARITO MTZ Address: Home [address] [place], [place] [phone] [place] Care Team Personnel Name: MARTINEZ NÚÑEZ MD Position: P4 COPPERSMITH APPRENTICE Provider Member Role: Primary Care Physician Address: Address: [address] [place] [address]- Care Team Related Persons Name: AMANDA OLIVEIRA Address: Home [address] [place] [address] [phone] [place] Address: Temporary [address] [place], [place] [phone] Name: RASHMI MTZ Address: Home [address] [phone] [place] Name: MARGARITO MTZ Address: Home [address] [place], [place] [phone] [place] Name: MARGARITO MTZ Address: Home [address] [place], [place] [phone] [place] Name: MARGARITO MTZ Address: Home [address] [place], [place] [phone] [place] Name: MARGARITO MTZ Address: Home [address] [place], [place] [phone] [place] Name: MARGARITO MTZ Address: Home [address] [place], [place] [phone] [place] Name: MARGARITO MTZ Address: Home [address] [place], [place] [phone] [place] Name: MARGARITO MTZ Address: Home [address] [place], [place] [phone] [place] Name: MARGARITO MTZ Address: [address] [place], [place] [phone] [place] Care Team Personnel Name: MARTINEZ NÚÑEZ MD Position: P4 COPPERSMITH APPRENTICE Provider Member Role: Primary Care Physician Address: Address: [address] [place] [address] [place], [place] [address] Care Team Related Persons Name: LUIS DANIEL OLIVEIRA Address: Home [address] [place], [place] [phone] Address: Temporary [address] [place], [place] [phone] Care Team Personnel Name: KIRSTEN CISNEROSLOSS PREVENTION SUPERVISOR Position: P4 Advanced Kindergarten Instructional Assistant Member Role: Primary Care Physician Address: Address: [address] [place] [address] Care Team Related Persons Name: LUIS DANIEL OLIVEIRA Address: Home [address] [place], [place] [phone] Address: Temporary [address] [place], [place] [phone] Care Team Personnel Name: KIRSTEN CISNEROS APRN-LOSS PREVENTION SUPERVISOR Position: P4 Advanced Kindergarten Instructional Assistant Member Role: Primary Care Physician Address: Address: [address] [place] [phone]- Care Team Related Persons Name: LUIS DANIEL OLIVEIRA Address: Home [address] [place], [place] [id number] Address: Temporary [address] [place], [place] [id number] FOR RECORDS PERTAINING TO PATIENTS WHO ARE [...] BE BASED ON THE PRIMARY CLINICAL RECORDS. [facility] [employer] provides no warranty or guarantee of the accuracy or completeness of information in this document.
--- OUTSIDE RECORDS SUMMARY | 2025-07-30 00:01 | XMS RPT_ITS | CCD ---
Author Organization [facility] Care Team Providers Care Sales Operations Associate Name Role Phone Lynsey [phone], Alex [phone] C onsulting Unavailable KWON DO, KAY K [...] DR MAXWELL GOMEZ MD Primary Care Physician CHKEO MCCLELLAND Admitting Unavailable CHEKO MCCLELLAND Attending Unavailable TANESHA HILTON Attending Unavailable TANESHA HILTON Admitting Unavailable JAYDE YEAGER Attending Unavailable HIWOT HUDSON Attending UnavailSUNIL Saeed MD Primary Care Physician MARTINEZ NÚÑEZ MD Primary Care Physician MAST SHOTBLAST OPERATOR-RIDING SILKS CUSTODIAN, KIRSTEN Primary Care Physician [phone] WILTON AN, MARTINEZ Bautista Primary Care Unavailable LIVIER AN, SUNIL Admitting Unavailable JAYLA AN, LONG Attending Unavailable WILTON AN, MARTINEZ Bautista Attending Unavailable WILTON AN, MARTINEZ Bautista Primary Care Unavailable WILTON AN, MARTINEZ Bautista Attending Unavailable WILTON AN, MARTINEZ Bautista Primary Care Unavailable WILTON AN, MARTINEZ Bautista Attending Unavailable WILTON AN, MARTINEZ Bautista Primary Care Unavailable [facility], OSMAN Attending Unavailhieu NÚÑEZ MD, MARTINEZ Bautista Primary Care Unavailable MAST SHOTBLAST OPERATOR-RIDING SILKS CUSTODIAN, KIRSTEN Attending Unavailabl e MAST SHOTBLAST OPERATOR-RIDING SILKS CUSTODIAN, KIRSTEN Primary Care Unavailabl e LIVIER AN, SUNIL Attending Unavailable WILTON AN, MARTINEZ Bautista Primary Care Unavailable JAYLA AN, LONG Attending Unavailable WILTON AN, MARTINEZ Bautista Primary Care Unavailable JAYLA AN, LONG Attending Unavailable WILTON AN, MARTINEZ Bautista Primary Care Unavailable MAST SHOTBLAST OPERATOR-RIDING SILKS CUSTODIAN, KIRSTEN Attending Unavailabl e MAST SHOTBLAST OPERATOR-RIDING SILKS CUSTODIAN, KIRSTEN Primary Care Unavailabl e RAMA AVALOS [...] Physician, No Primary Primary Care Unava ilable [place] WALLPAPER PRINTER, Remedios Attending Unavailable Care Physician, No Primary Referring Unava ilable Care Physician, No Primary Primary Care Unava ilable Sanchez, Geraldine Referring Unavailable Sanchez, Geraldine Attending Unavailable Vande Velde, Rama Referring Unavailabl e Vande Velde, Rama Attending Unavailabl e Care Physician, No Primary Primary Care Unava ilable Antonio, [place] Consulting Unavailable Care Physician, No Primary Primary Care Unava ilable [place] WALLPAPER PRINTER, Remedios Attending Unavailable GardnerMendez Attending Unavailable Care Physician, No Primary Primary Care Unava ilable [place] WALLPAPER PRINTER, Remedios Attending Unavailable Care Physician, No Primary Primary Care Unava ilable Jose WALLPAPER PRINTER, Remedios Referring Unavailable Care Physician, No Primary Primary Care Unava ilable Marcanthony, Geraldine Referring Unavailable Marcanthony, Geraldine Attending Unavailable Care Physician, No Primary Primary Care Unava ilable Damari Mcdonough Referring Unavailable Damari Mcdonough Attending Unavailable Jose WALLPAPER PRINTER, Remedios Attending Unavailable Care Physician, No Primary Primary Care Unava ilable [place] WALLPAPER PRINTER, Remedios Referring Unavailable Jose WALLPAPER PRINTER, Remedios Attending Unavailable Care Physician, No Primary Primary Care Unava ilable Jose WALLPAPER PRINTER, Remedios Referring Unavailable Care Physician, No Primary Primary Care Unava ilable Care Physician, No Primary Referring Unava ilable Geraldine Bradford Attending Unavailable Allergies Allergy Classification Reported Allergen(s) Allergy Type Date of Onset Reaction(s) Facility (1 source) Escitalopram Drug Allergy [facility] Repository (11 sources) Citalopram; Translations: [CITALOPRAM HYDROBROMIDE] Drug Allergy 4 Other: See Comments [facility] Work Phone: (11 sources) Escitalopram; Translations: [ESCITALOPRAM] Drug Allergy 1 Other: See Comments [facility] Work Phone: (15 sources) Citalopram; Translations: [citalopram] Drug Allergy Suicidal ideation [facility] (1 source) Citalopram Drug Allergy 5 [facility] Repository (1 source) Escitalopram Drug Allergy [facility] Repository Medications Current Medications Medication Drug Class(es) Dates Sig (Normalized) Sig (Original) acetaminophen 500 mg oral tablet (1 source) Start: 03-31-2023 End: 04-28-2023 Tylenol Extra Strength 500 mg oral tablet Dose : 500 mg = 1 tab(s), Oral, q4h, X 14 day(s), # 30 tab(s), 1 Refill(s), 04/28/23 11:38:00 EDT, Pharmacy: [facility]/pharmacy #[id number], 155, cm, 03/30/23 7:49:00 EDT, Height Start Date: 03/31/23 Stop Date: 04/28/23 Status: Ordered benzocaine 200 mg/ml topical spray (1 source) Standardized Chemical Allergen Start: 03-31-2023 End: 04-14-2023 apply 1 dose topically four times daily Americaine 20% topical spray Dose = 1 herlinda, Topical, QID, X 14 day(s), # 1 EA, 0 Refill(s), Pharmacy: [facility]/pharmacy #[id number], 155, cm, 03/30/23 7:49:00 EDT, Height [...] 0 Refill(s), 02/25/24 8:31:00 AM EDT, Pharmacy: [facility] #[id number], 155, cm, 02/18/24 7:59:00 EDT, Height, kg, 02/18/24 7:59:00 EDT, Dosing Weight Start Date: 02/18/24 Stop Date: 02/25/24 Status: Ordered diclofenac sodium 75 mg delayed release oral tablet (1 source) Nonsteroidal Anti-inflammatory Drug Start: 02-18-2024 End: 03-03-2024 diclofenac sodium 75 mg oral delayed release tablet Dose : 75 mg = 1 tab(s), Oral, BID, # 28 tab(s), 0 Refill(s), Pharmacy: [facility] #330, 155, cm, 02/18/24 7:59:00 EDT, Height, [...] tab(s), 0 Refill(s), 04/14/23 11:38:00 EDT, Pharmacy: [facility]/pharmacy #[id number], 155, cm, 03/30/23 7:49:00 EDT, Height Start Date: 03/31/23 Stop Date: 04/14/23 Status: Ordered magnesium oxide 400 mg oral tablet (3 sources) Start: 01-11-2023 End: 02-10-2023 magnesium oxide 400 mg oral tablet Dose : 400 mg = 1 tab(s), Oral, qHS, X 30 day(s), # 30 tab(s), 0 Refill(s), 02/10/23 15:17:00 EDT, Pharmacy: [facility]/pharmacy #[id number], 155, , 01/11/23 15:08:00 EDT, Height [...] tylenol, # 12 tab(s), 0 Refill(s), Pharmacy: [facility]/pharmacy #[id number], 155, cm, 01/11/23 15:08:00 EDT, Height [...] on above: Take 1 capsule by mo [facility] daily with breakfast. AD oral tablet (10 sources) Start: 01-26-2023 take 1 tablet by mouth once daily AD oral tablet Dose = 1 tab(s), Oral, Daily, # 30 tab(s), 0 Refill(s) Start Date: 01/26/23 Status: Ordered Nfuahblr-Jgc-Ir-Fa () 1 mg Tablet (2 sources) Start: 08-09-2022 take 1 tablet by mouth once daily Cauuysqx-Cpu-Mt-Fa () 1 mg Tablet Active 1 TABLET PO DAILY August 08, 2022 11:00pm Start: 08-09-2022 [facility] Hpebcyup-Xgy-Zh-Fa () 1 mg Tablet Active 1 TABLET [...] qDay, # 30 tab(s), 11 Refill(s), [id number], Depression, major, recurrent, moderate, 154, cm, 07/20/23 7:49:00 EDT, Height, kg, 07/20/23 7:49:00 EDT, Dosing Weight Start Date: 08/16/23 Stop Date: 08/10/24 Status: Ordered Vitamin B2 100 mg oral tablet (8 sources) Start: 02-04-2023 take 1 tablet by mouth once daily Vitamin B2 100 mg oral tablet 1 tab(s), Oral, qDay, # 30 tab(s), 2 Refill(s), Pharmacy: [facility] STORE [id number], 155, cm, 02/01/23 13:50:00 EDT, Height, kg, 01/26/23 0:59:00 EDT, Dosing Weight Start Date: 02/04/23 Status: Ordered Start: 01-11-2023 Vitamin B2 100 mg oral tablet Dose : 100 mg = 1 tab(s), Oral, Daily, # 30 tab(s), 2 Refill(s), Pharmacy: [facility]/pharmacy #[id number], 155, cm, 01/11/23 15:08:00 EDT, Height [...] (FLONASE) 50 mcg/actuation nasal spray Use 1 [place] in each nostril once daily. 1 Bottle 2 07/10/2014 08/19/2022 Discontinued Comment on above: Use 1 [place] in each nostril once daily. loratadine 10 [...] (3 sources) Congenital vesicoureterorenal reflux; Translations: [Congenital jmdevp-adzhzpg-rcqfs reflux] Onset: 5 Chronic Headache; including migraine [...] Absolute Lymph 1.09 X10 3/uL Normal 0.83-4.51 [facility] Comment on above: Performed By: #### L 100.0100, L500.4050 #### [facility] [address] [place], [place], [id number] Absolute Neut 6.9 X10 3/uL Normal 2.0-7.7 [facility] Comment on above: Performed By: #### L 100.0100, L500.4050 #### [facility] [address] [place], [address] Basophils/100 WBC (Bld) 0.1 % Normal 0-1 [facility] Comment on above: Performed By: #### L 100.0100, L500.4050 #### [facility] [address] [place], [address] Eosinophils/100 WBC (Bld) 0.2 % Normal 0-5 [facility] Comment on above: Performed By: #### L 100.0100, L500.4050 #### [facility] [address] [place], [address] Erythrocyte distribution width (RBC) [Ratio] 14.1 % Normal 11.6-14.6 [facility] Comment on above: Performed By: #### L 100.0100, L500.4050 #### [facility] [address] [place], [address] Hematocrit (Bld) [Volume fraction] 31.9 % Low 37-47 [facility] Comment on above: Performed By: #### L 100.0100, L500.4050 #### [facility] [address] [place], [address] Hemoglobin (Bld) [Mass/Vol] 11.6 g/dL Low 12.0-15.0 [facility] Comment on above: Performed By: #### L 100.0100, L500.4050 #### [facility] [address] [place], [address] IG% 0.600 Normal 0.0-0.9 [facility] Comment on above: Result Comment: IG% - Immature Granulocytes (promyelocytes, myelocytes and metamyelocytes) > 1% indicates that a LEFT SHIFT is Present. Performed By: #### L 100.0100, L500.4050 #### [facility] [address] [place], [address] Lymphocytes/100 WBC (Bld) 12.8 % Low 19-41 [facility] Comment on above: Performed By: #### L 100.0100, L500.4050 #### [facility] [address] [place], [address] MCH (RBC) [Entitic mass] 32.6 pg High 27.0-32.0 [facility] Comment on above: Performed By: #### L 100.0100, L500.4050 #### [facility] [address] [place], [address] MCHC (RBC) [Mass/Vol] 36.4 g/dL High 32-36 [facility] Comment on above: Performed By: #### L 100.0100, L500.4050 #### [facility] [address] [place], [address] MCV (RBC) [Entitic vol] 89.6 fL Normal 81-99 [facility] Comment on above: Performed By: #### L 100.0100, L500.4050 #### [facility] [address] [place], [address] Monocytes/100 WBC (Bld) 4.7 % Normal 0-10 [facility] Comment on above: Performed By: #### L 100.0100, L500.4050 #### [facility] [address] [place], [address] Neutrophils/100 WBC (Bld) 81.6 % High 47-70 [facility] Comment on above: Performed By: #### L 100.0100, L500.4050 #### [facility] [address] [place], [address] Nucleated RBC (Bld) [#/Vol] 0 10*3/uL Normal 0-5 [facility] Comment on above: Performed By: #### L 100.0100, L500.4050 #### [facility] [address] [place], [address] Platelet mean volume (Bld) [Entitic vol] 10.1 fL Normal 6.2-12.0 [facility] Comment on above: Performed By: #### L 100.0100, L500.4050 #### [facility] [address] [place], [address] Platelets (Bld) [#/Vol] 180 10*3/uL Normal 150-450 [facility] Comment on above: Performed By: #### L 100.0100, L500.4050 #### [facility] [address] [place], [address] RBC (Bld) [#/Vol] 3.56 10*6/uL Low 4.2-5.4 [facility] Comment on above: Performed By: #### L 100.0100, L500.4050 #### [facility] [address] [place], [address] RDW SD 45.9 fl High 35.1-43.9 [facility] Comment on above: Performed By: #### L 100.0100, L500.4050 #### [facility] [address] [place], [address] WBC (Bld) [#/Vol] 8.5 10*3/uL Normal 4.4-11.0 [facility] Comment on above: Performed By: #### L 100.0100, L500.4050 #### [facility] [address] [place], [address] Comprehensive Metabolic Prof [facility] 07-09-2025 Albumin [Mass/Vol] 3.9 g/dL Normal 3.5-5.0 [facility] Comment on above: Performed By: #### L 100.0100, L500.4050 #### [facility] [address] [place], [address] Albumin/Globulin [Mass ratio] 1.4 {ratio} Normal 0.9-2.4 [facility] Comment on above: Performed By: #### L 100.0100, L500.4050 #### [facility] [address] [place], [address] ALK PHOS 65 U/L Normal 35-104 [facility] Comment on above: Performed By: #### L 100.0100, L500.4050 #### [facility] [address] [place], [address] ALT [Catalytic activity/Vol] 20 U/L Normal <=34 [facility] Comment on above: Performed By: #### L 100.0100, L500.4050 #### [facility] [address] [place], [address] AST [Catalytic activity/Vol] 23 U/L Normal <=31 [facility] Comment on above: Performed By: #### L 100.0100, L500.4050 #### [facility] [address] [place], [address] Bilirubin [Mass/Vol] 0.35 mg/dL Normal 0.00-1.30 [facility] Comment on above: Performed By: #### L 100.0100, L500.4050 #### [facility] [address] [place], [address] BUN/CRE 10.5 RATIO Normal 10-20 [facility] Comment on above: Performed By: #### L 100.0100, L500.4050 #### [facility] [address] [place], [address] Calcium [Mass/Vol] 9.1 mg/dL Normal 7.6-11.0 [facility] Comment on above: Performed By: #### L 100.0100, L500.4050 #### [facility] [address] [place], [address] Chloride [Moles/Vol] 105 mmol/L Normal 98-108 [facility] Comment on above: Performed By: #### L 100.0100, L500.4050 #### [facility] [address] [place], [address] CO2 [Moles/Vol] 18.7 mmol/L Low 21.0-32.0 [facility] Comment on above: Performed By: #### L 100.0100, L500.4050 #### [facility] [address] [place], [address] Creatinine [Mass/Vol] 0.60 mg/dL Low 0.70-1.20 [facility] Comment on above: Performed By: #### L 100.0100, L500.4050 #### [facility] [address] [place], [address] GAP 14 Normal 5-15 [facility] Comment on above: Performed By: #### L 100.0100, L500.4050 #### [facility] [address] [place], [address] GFR/1.73 sq M.predicted among non-blacks MDRD (S/P/Bld) [Vol rate/Area] 128 mL/min/{1.73_m2} Normal >60 [facility] Comment on above: Result Comment: mL/m in/1.73m2 CKD-EPI Creatinine Equation (2020) Performed By: #### L 100.0100, L500.4050 #### [facility] [address] [place], [address] Globulin (S) [Mass/Vol] 2.8 g/dL Normal 2.2-4.2 [facility] Comment on above: Performed By: #### L 100.0100, L500.4050 #### [facility] [address] [place], [address] Glucose [Mass/Vol] 91 mg/dL Normal 70-99 [facility] Comment on above: Performed By: #### L 100.0100, L500.4050 #### [facility] [address] [place], [address] Potassium [Moles/Vol] 3.7 mmol/L Normal 3.3-5.1 [facility] Comment on above: Performed By: #### L 100.0100, L500.4050 #### [facility] [address] [place], [address] Sodium [Moles/Vol] 137 mmol/L Normal 133-145 [facility] Comment on above: Performed By: #### L 100.0100, L500.4050 #### [facility] [address] [place], [address] T PROT 6.7 g/dL Normal 5.9-8.4 [facility] Comment on above: Performed By: #### L 100.0100, L500.4050 #### [facility] [address] [place], [address] Urea nitrogen [Mass/Vol] 6 mg/dL Normal 4-19 [facility] Comment on above: Performed By: #### L 100.0100, L500.4050 #### [facility] [address] [place], [address] Carry Out Clerk And Shelf Stocker Office Visit Reporton 07-09-2025 Carry Out Clerk And Shelf Stocker Office Visit Report [facility]'[address], [address] [place] [address] OFFICE VISIT Date of Service: 07/09/25 MR#: [id number] Acct: [id number] Name: LUZ OLIVEIRA Rep #: 36 [...] Visit Reasons: DISCUSS CONCERNS * OK PER Staff Radiographer Required: No Is patient in pain?: No Allergies escitalopram (From Lexapro) Adverse Reaction (Severe, Verified 07/09/25 09:30) SUICIDAL citalopram hydrobromide (From Celexa) Adverse Reaction (Verified 07/09/25 09:30) Other Medications ???Medication ???Instructions ???Recorded ???Confirmed ???Type fnvdltvg-dfu-Uc-FA 1 mg 1 tab PO DAILY 08/09/22 [...] hypertension Obesity affecting 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 wgkgjf-irmcwir-azfvn reflux Surgical History [place] teeth removed Family History Grandmother Breast cancer Brain cancer Grandfather CVA (cerebral vascular accident) Mother Diabetes Heart failure MRSA carrier History of recurrent miscarriages Father Hypertension Social History adopted: No household members: spouse and children housing: house number of children: 1 current occupation: [employer] current occupational exposures/hazards: No pets and [...] 3-4 times per week duration: 15-30 minutes/day kalpana/christian: Shinto seatbelt use: always do you feel safe at home: Yes 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 Date Name GA/Weeks Outcome Route Bth Weight Gen Labor Lgth Anesthesia Del Locatn Provider FOB 10/11/18 Chemical 4 spontaneous 03/30/23 Amanda 39 live - full term vacuum 6lbs 1oz Female epidural [facility] Delivery Date: 03/30/23 Last Updated by: Yasmin [...] Visit Note (more content not included)... Normal [facility] Protein+Creatinine Ratio,Uri neon 07-09-2025 PROT:CRE RATIO 283 mg/g CRE High 0-200 [facility] Comment on above: Performed By: #### L 501.0900 #### [facility] [address] [place], [address] Protein (U) [Mass/Vol] 73.9 mg/dL High 0.0-12.0 [facility] Comment on above: Performed By: #### L 501.0900 #### [facility] [address] [place], [address] UR CREAT 261.00 mg/dL High 28.00-217.00 [facility] Comment on above: Performed By: #### L 501.0900 #### [facility] [address] [place], [address] Wound Cultureon 07-06-2025 WC Lesion of abdomen Possible skin contamination, further Identification and sensitivity will be performed only by physician's request. Coag Negative Staph Amount Growth 2+ Normal [facility] Comment on above: Performed By: #### L 100.0100 #### [facility] [address] [place], [address] Gram Stainon 07-04-2025 GS Lesion of abdomen Gram Stain 1+ White Blood Cells No organisms seen Normal [facility] Comment on above: Performed By: #### L 100.0100 #### [facility] [address] [place], [address] Carry Out Clerk And Shelf Stocker Office Visit Reporton 07-03-2025 Carry Out Clerk And Shelf Stocker Office Visit Report [facility] [address] [facility], [address] [place] [address] OFFICE VISIT Date of Service: 07/03/25 MR#: [id number] Acct: [id number] Name: LUZ OLIVEIRA Rep #: [id number] : 2000 Provider: JARAD moctezuma Age/Sex: 24/F Location: [facility] Status: Signed Intake Vital Signs 05/07/25 14:40 06/06/25 13:39 07/03/25 15:35 Height 5 ft 1 in 5 ft 1 in 5 ft 1 in Weight: 185 lb 4 oz BMI 34.9 BP 109/74 Intake Visit Reasons: 21wk ob Chief Complaint: 21 Week OB Staff Radiographer Required: No Is patient in pain?: No Allergies escitalopram (From Lexapro) Adverse Reaction (Severe, Verified 07/03/25 15:38) SUICIDAL citalopram hydrobromide (From Celexa) Adverse Reaction (Verified 07/03/25 15:38) Other Medications ???Medication ???Instructions ???Recorded ???Confirmed ???Type uuxrhqqs-nvi-Kg-FA 1 mg 1 tab PO DAILY 08/09/22 [...] hypertension Obesity affecting 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 tbtrnq-ordjvbk-camju reflux Surgical History [place] teeth removed Family History Grandmother Breast cancer Brain cancer Grandfather CVA (cerebral vascular accident) Mother Diabetes Heart failure MRSA carrier History of recurrent miscarriages Father Hypertension Social History adopted: No household members: spouse and children housing: house number of children: 1 current occupation: [employer] current occupational exposures/hazards: No pets and [...] 3-4 times per week duration: 15-30 minutes/day kalpana/christian: Shinto seatbelt use: always do you feel safe at home: Yes 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 Normal [facility] Progress Noteon 06-20-2025 Brick Pitcher Authentication Interface Message Text [facility] MATERNAL- MEDICINE CONSULT Referring/Requesting Provider: [...] disorder Chronic kidney disease kidney stones Congenital ucpxlr-wadnkbr-epvhs reflux Depression Elevated liver enzymes Headache in [...] repeat LFTs are elevated, refer to local grinding operator for further evaluation. Frequent UTI 06/20/2025 - [...] hemorrhage, stillbirth, anomalies, delivery and postcesarean complications. [place] of medicine recommend weight gain in : [...] findings. Ame (more content not included)... Normal [facility] Carry Out Clerk And Shelf Stocker Office Visit Reporton 06-06-2025 Carry Out Clerk And Shelf Stocker Office Visit Report [facility]'s [address], [address] [place] [address] OFFICE VISIT Date of Service: 06/06/25 MR#: [id number] Acct: [id number] Name: LUZ OLIVEIRA Rep #: [id number] : 2000 Provider: Dr. Rama Trammell DO Age/Sex: 24/F Location: [facility] Status: Signed Intake Vital Signs 04/09/25 10:40 05/30/25 09:28 06/06/25 13:37 06/06/25 13:39 Height 5 ft 1 in 5 ft 1 in 5 ft 1 in 5 ft 1 in Weight: 183 lb 5 oz BMI 34.6 BP 112/68 Intake Visit Reasons: 17 wk ob Staff Radiographer Required: No Is patient in pain?: No Allergies escitalopram (From Lexapro) Adverse Reaction (Severe, Verified 06/06/25 13:36) SUICIDAL citalopram hydrobromide (From Celexa) Adverse Reaction (Verified 06/06/25 13:36) Other Medications ???Medication ???Instructions ???Recorded ???Confirmed ???Type vthizpkl-ruz-Jn-FA 1 mg 1 tab PO DAILY 08/09/22 06/06/25 H istory tablet metoclopramide HCl 5 mg tablet 5 mg PO QACHS #60 tabs 04/19/25 Rx (Reglan) Last Menstrual Period: 02/02/25 Zika: Zika virus screening: Negative : No PFSH PFSH Medical History Fatty liver Renal atrophy, left Elevated liver enzymes Heart palpitations History of gestational hypertension Obesity affecting 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 ynaqsz-orzlcoh-gpauz reflux Surgical History [place] teeth removed Family History Grandmother Breast cancer Brain cancer Grandfather CVA (cerebral vascular accident) Mother Diabetes Heart failure MRSA carrier History of recurrent miscarriages Father Hypertension Social History adopted: No household members: spouse and children housing: house number of children: 1 current occupation: [employer] current occupational exposures/hazards: No pets and [...] 3-4 times per week duration: 15-30 minutes/day kalpana/christian: Shinto seatbelt use: always do you feel safe at home: Yes 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 Date Name GA/Weeks Outcome Route Bth Weight Gen Labor Lgth Anesthesia Del Locatn Provider FOB 10/11/18 Chemical 4 spontaneous 03/30/23 Amanda 39 live - full term vacuum 6lbs 1oz Female epidural [facility] Delivery Date: 03/30/23 Last Updated by: Yasmin [...] ??-???- Negat (more content not included)... Normal [facility] Urine Cultureon 06-02-2025 URC #1,2 Gram positive francheska suggestive of a diphtheroid. Susceptibility not normally performed on this organism Urine Culture Urine Culture Urine Culture Corynebacterium amycolatum [place] Count 11,000-25,000 Corynebacterium minutissimum Corynebacterium minutissimum Normal [facility] Comment on above: Performed By: #### M 100.678, M100.2200, L400.0001 #### [facility] [address] [place], [place], [address] Cardiology Visit Reporton Cardiology Visit Report [facility] [address] [place] [address] OFFICE VISIT Date of Service: 05/30/25 MR#: [id number] Acct: [id number] Name: LUZ OLIVEIRA Rep #: [id number] : 2000 Provider: Dr. Keven Alvarez MD Age/Sex: 24/F [place] [facility] [place]: Signed HPI HPI History of Present [...] Source Monitor Intake Visit Reasons: PALP ([place]) Staff Radiographer Required: No Accompanied by: Self Is patient in pain?: No Allergies escitalopram (From Lexapro) Adverse Reaction (Severe, Verified 05/30/25 09:34) SUICIDAL citalopram hydrobromide (From Celexa) Adverse Reaction (Verified 05/30/25 09:34) Other Medications ???Medication ???Instructions ???Recorded ???Confirmed ???Type olvcostu-hjk-Ft-FA 1 mg 1 tab PO DAILY 08/09/22 05/30/25 H istory tablet metoclopramide HCl 5 mg tablet 5 mg PO QACHS #60 tabs 04/19/25 Rx (Reglan) PFSH Medical History Fatty liver Renal atrophy, left Elevated liver enzymes Heart palpitations History of gestational hypertension Obesity affecting 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 nifdpi-vtkhtcp-vmyea reflux Surgical History [place] teeth removed Family History Grandmother Breast cancer Brain cancer Grandfather CVA (cerebral vascular accident) Mother Diabetes Heart failure MRSA carrier History of recurrent miscarriages Father Hypertension Social History adopted: No household members: spouse and children housing: house number of children: 1 current occupation: [employer] current occupational exposures/hazards: No pets and [...] 3-4 times per week duration: 15-30 minutes/day kalpana/christian: Shinto seatbelt use: always do you feel safe at home: Yes 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: : 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 Normal [facility] Comprehensive Metabolic Prof ilon 05-30-2025 Albumin [Mass/Vol] 4.0 g/dL Normal 3.5-5.0 [facility] Comment on above: Performed By: #### L 100.0100, L500.4050 #### [facility] [address] [place], [address] Albumin/Globulin [Mass ratio] 1.5 {ratio} Normal 0.9-2.4 [facility] Comment on above: Performed By: #### L 100.0100, L500.4050 #### [facility] [address] [place], [address] ALK PHOS 56 U/L Normal 35-104 [facility] Comment on above: Performed By: #### L 100.0100, L500.4050 #### [facility] [address] [place], [address] ALT [Catalytic activity/Vol] 35 U/L Normal <=34 [facility] Comment on above: Performed By: #### L 100.0100, L500.4050 #### [facility] [address] [place], [address] AST [Catalytic activity/Vol] 29 U/L Normal <=31 [facility] Comment on above: Performed By: #### L 100.0100, L500.4050 #### [facility] [address] [place], [address] Bilirubin [Mass/Vol] 0.36 mg/dL Normal 0.00-1.30 [facility] Comment on above: Performed By: #### L 100.0100, L500.4050 #### [facility] [address] [place], [address] BUN/CRE 10.5 RATIO Normal 10-20 [facility] Comment on above: Performed By: #### L 100.0100, L500.4050 #### [facility] [address] [place], [address] Calcium [Mass/Vol] 9.3 mg/dL Normal 7.6-11.0 [facility] Comment on above: Performed By: #### L 100.0100, L500.4050 #### [facility] [address] [place], [address] Chloride [Moles/Vol] 104 mmol/L Normal 98-108 [facility] Comment on above: Performed By: #### L 100.0100, L500.4050 #### [facility] [address] [place], [address] CO2 [Moles/Vol] 20.0 mmol/L Low 21.0-32.0 [facility] Comment on above: Performed By: #### L 100.0100, L500.4050 #### [facility] [address] [place], [address] Creatinine [Mass/Vol] 0.57 mg/dL Low 0.70-1.20 [facility] Comment on above: Performed By: #### L 100.0100, L500.4050 #### [facility] [address] [place], [address] GAP 14 Normal 5-15 [facility] Comment on above: Performed By: #### L 100.0100, L500.4050 #### [facility] [address] [place], [address] GFR/1.73 sq M.predicted among non-blacks MDRD (S/P/Bld) [Vol rate/Area] 129 mL/min/{1.73_m2} Normal >60 [facility] Comment on above: Result Comment: mL/m in/1.73m2 CKD-EPI Creatinine Equation (2020) Performed By: #### L 100.0100, L500.4050 #### [facility] [address] [place], [address] Globulin (S) [Mass/Vol] 2.6 g/dL Normal 2.2-4.2 [facility] Comment on above: Performed By: #### L 100.0100, L500.4050 #### [facility] [address] [place], [address] Glucose [Mass/Vol] 92 mg/dL Normal 70-99 [facility] Comment on above: Performed By: #### L 100.0100, L500.4050 #### [facility] [address] [place], [address] Potassium [Moles/Vol] 3.8 mmol/L Normal 3.3-5.1 [facility] Comment on above: Performed By: #### L 100.0100, L500.4050 #### [facility] [address] [place], [address] Sodium [Moles/Vol] 138 mmol/L Normal 133-145 [facility] Comment on above: Performed By: #### L 100.0100, L500.4050 #### [facility] [address] [place], [address] T PROT 6.6 g/dL Normal 5.9-8.4 [facility] Comment on above: Performed By: #### L 100.0100, L500.4050 #### [facility] [address] [place], [address] Urea nitrogen [Mass/Vol] 6 mg/dL Normal 4-19 [facility] Comment on above: Performed By: #### L 100.0100, L500.4050 #### [facility] [address] [place], [address] Thyroid Stim Hormone (TSH)on 05-30-2025 TSH 0.631 uIU/mL Normal 0.300-4.200 [facility] Comment on above: Performed By: #### L 501.9520 #### [facility] [address] [place], [address] CBC W/Diff, Automatedon Absolute Lymph 1.81 X10 3/uL Normal 0.83-4.51 [facility] Comment on above: Performed By: #### L 100.0100, L500.4050 #### [facility] [address] [place], [address] Absolute Neut 5.3 X10 3/uL Normal 2.0-7.7 [facility] Comment on above: Performed By: #### L 100.0100, L500.4050 #### [facility] [address] [place], [address] Basophils/100 WBC (Bld) 0.1 % Normal 0-1 [facility] Comment on above: Performed By: #### L 100.0100, L500.4050 #### [facility] [address] [place], [address] Eosinophils/100 WBC (Bld) 0.3 % Normal 0-5 [facility] Comment on above: Performed By: #### L 100.0100, L500.4050 #### [facility] [address] [place], [address] Erythrocyte distribution width (RBC) [Ratio] 12.9 % Normal 11.6-14.6 [facility] Comment on above: Performed By: #### L 100.0100, L500.4050 #### [facility] [address] [place], [address] Hematocrit (Bld) [Volume fraction] 36.8 % Low 37-47 [facility] Comment on above: Performed By: #### L 100.0100, L500.4050 #### [facility] [address] [place], [address] Hemoglobin (Bld) [Mass/Vol] 13.0 g/dL Normal 12.0-15.0 [facility] Comment on above: Performed By: #### L 100.0100, L500.4050 #### [facility] [address] [place], [address] IG% 0.400 Normal 0.0-0.9 [facility] Comment on above: Result Comment: IG% - Immature Granulocytes (promyelocytes, myelocytes and metamyelocytes) > 1% indicates that a LEFT SHIFT is Present. Performed By: #### L 100.0100, L500.4050 #### [facility] [address] [place], [address] Lymphocytes/100 WBC (Bld) 23.5 % Normal 19-41 [facility] Comment on above: Performed By: #### L 100.0100, L500.4050 #### [facility] [address] [place], [address] MCH (RBC) [Entitic mass] 31.0 pg Normal 27.0-32.0 [facility] Comment on above: Performed By: #### L 100.0100, L500.4050 #### [facility] [address] [place], [address] MCHC (RBC) [Mass/Vol] 35.3 g/dL Normal 32-36 [facility] Comment on above: Performed By: #### L 100.0100, L500.4050 #### [facility] [address] [place], [address] MCV (RBC) [Entitic vol] 87.6 fL Normal 81-99 [facility] Comment on above: Performed By: #### L 100.0100, L500.4050 #### [facility] [address] [place], [address] Monocytes/100 WBC (Bld) 6.7 % Normal 0-10 [facility] Comment on above: Performed By: #### L 100.0100, L500.4050 #### [facility] [address] [place], [address] Neutrophils/100 WBC (Bld) 69.0 % Normal 47-70 [facility] Comment on above: Performed By: #### L 100.0100, L500.4050 #### [facility] [address] [place], [address] Nucleated RBC (Bld) [#/Vol] 0 10*3/uL Normal 0-5 [facility] Comment on above: Performed By: #### L 100.0100, L500.4050 #### [facility] [address] [place], [address] Platelet mean volume (Bld) [Entitic vol] 10.3 fL Normal 6.2-12.0 [facility] Comment on above: Performed By: #### L 100.0100, L500.4050 #### [facility] [address] [place], [address] Platelets (Bld) [#/Vol] 198 10*3/uL Normal 150-450 [facility] Comment on above: Performed By: #### L 100.0100, L500.4050 #### [facility] [address] [place], [address] RBC (Bld) [#/Vol] 4.20 10*6/uL Normal 4.2-5.4 [facility] Comment on above: Performed By: #### L 100.0100, L500.4050 #### [facility] [address] [place], [address] RDW SD 39.9 fl Normal 35.1-43.9 [facility] Comment on above: Performed By: #### L 100.0100, L500.4050 #### [facility] [address] [place], [address] WBC (Bld) [#/Vol] 7.7 10*3/uL Normal 4.4-11.0 [facility] Comment on above: Performed By: #### L 100.0100, L500.4050 #### [facility] [address] [place], [address] Comprehensive Metabolic Prof [facility] 05-14-2025 Albumin [Mass/Vol] 4.2 g/dL Normal 3.5-5.0 [facility] Comment on above: Performed By: #### L 100.0100, L500.4050 #### [facility] [address] [place], [address] Albumin/Globulin [Mass ratio] 1.5 {ratio} Normal 0.9-2.4 [facility] Comment on above: Performed By: #### L 100.0100, L500.4050 #### [facility] [address] [place], [address] ALK PHOS 61 U/L Normal 35-104 [facility] Comment on above: Performed By: #### L 100.0100, L500.4050 #### [facility] [address] [place], [address] ALT [Catalytic activity/Vol] 47 U/L High <=34 [facility] Comment on above: Performed By: #### L 100.0100, L500.4050 #### [facility] [address] [place], [address] AST [Catalytic activity/Vol] 36 U/L High <=31 [facility] Comment on above: Performed By: #### L 100.0100, L500.4050 #### [facility] [address] [place], [address] Bilirubin [Mass/Vol] 0.52 mg/dL Normal 0.00-1.30 [facility] Comment on above: Performed By: #### L 100.0100, L500.4050 #### [facility] [address] [place], [address] BUN/CRE 10.7 RATIO Normal 10-20 [facility] Comment on above: Performed By: #### L 100.0100, L500.4050 #### [facility] [address] [place], [address] Calcium [Mass/Vol] 9.5 mg/dL Normal 7.6-11.0 [facility] Comment on above: Performed By: #### L 100.0100, L500.4050 #### [facility] [address] [place], [address] Chloride [Moles/Vol] 102 mmol/L Normal 98-108 [facility] Comment on above: Performed By: #### L 100.0100, L500.4050 #### [facility] [address] [place], [address] CO2 [Moles/Vol] 18.6 mmol/L Low 21.0-32.0 [facility] Comment on above: Performed By: #### L 100.0100, L500.4050 #### [facility] [address] [place], [address] Creatinine [Mass/Vol] 0.66 mg/dL Low 0.70-1.20 [facility] Comment on above: Performed By: #### L 100.0100, L500.4050 #### [facility] [address] [place], [address] GAP 16 High 5-15 [facility] Comment on above: Performed By: #### L 100.0100, L500.4050 #### [facility] [address] [place], [address] GFR/1.73 sq M.predicted among non-blacks MDRD (S/P/Bld) [Vol rate/Area] 125 mL/min/{1.73_m2} Normal >60 [facility] Comment on above: Result Comment: mL/m in/1.73m2 CKD-EPI Creatinine Equation (2020) Performed By: #### L 100.0100, L500.4050 #### [facility] [address] [place], [address] Globulin (S) [Mass/Vol] 2.8 g/dL Normal 2.2-4.2 [facility] Comment on above: Performed By: #### L 100.0100, L500.4050 #### [facility] [address] [place], [address] Glucose [Mass/Vol] 92 mg/dL Normal 70-99 [facility] Comment on above: Performed By: #### L 100.0100, L500.4050 #### [facility] [address] [place], [address] Potassium [Moles/Vol] 3.8 mmol/L Normal 3.3-5.1 [facility] Comment on above: Performed By: #### L 100.0100, L500.4050 #### [facility] [address] [place], [address] Sodium [Moles/Vol] 137 mmol/L Normal 133-145 [facility] Comment on above: Performed By: #### L 100.0100, L500.4050 #### [facility] [address] [place], [address] T PROT 7.0 g/dL Normal 5.9-8.4 [facility] Comment on above: Performed By: #### L 100.0100, L500.4050 #### [facility] [address] [place], [address] Urea nitrogen [Mass/Vol] 7 mg/dL Normal 4-19 [facility] Comment on above: Performed By: #### L 100.0100, L500.4050 #### [facility] [address] [place], [address] [employer] Office Visit Reporton 05-14-2025 [employer] Office Visit Report [facility] [address], [address] [place] [address] OFFICE VISIT Date of Service: 05/14/25 MR#: [id number] Acct: [id number] Name: LUZ OLIVEIRA Rep #: [id number] : 2000 Provider: Dr. Rama Trammell DO Age/Sex: 24/F Location: [facility] [place] Status: Signed Intake Vital Signs 05/07/25 14:40 05/14/25 14:48 05/14/25 14:48 Height 5 ft 1 in 5 ft 1 in 5 ft 1 in Weight: 185 lb 1 oz BMI 34.9 BP 100/52 L Intake Visit Reasons: 14wk OB, elevated liver enzymes cbc/cmp FU Staff Radiographer Required: No Is patient in pain?: No Allergies escitalopram (From Lexapro) Adverse Reaction (Severe, Verified 05/14/25 14:48) SUICIDAL citalopram hydrobromide (From Celexa) Adverse Reaction (Verified 05/14/25 14:48) Other Medications ???Medication ???Instructions ???Recorded ???Confirmed ???Type myrkrvpd-pyq-Pi-FA 1 mg 1 tab PO DAILY 08/09/22 05/14/25 H istory tablet metoclopramide HCl 5 mg tablet 5 mg PO QACHS #60 tabs 07/10/25 08 /04/25 Rx (Reglan) Last Menstrual Period: 02/02/25 Zika: Zika virus screening: Negative : No PFSH PFSH Medical History Congenital mqcdri-nmeuppc-jzzyf reflux Surgical History [place] teeth removed Family History Grandmother Breast cancer Brain cancer Grandfather CVA (cerebral vascular accident) Mother Diabetes Heart failure MRSA carrier History of recurrent miscarriages Father Hypertension Social History adopted: No household members: spouse and children housing: house number of children: 1 current occupation: [employer] current occupational exposures/hazards: No pets and [...] 3-4 times per week duration: 15-30 minutes/day kalpana/christian: Shinto seatbelt use: always do you feel safe at home: Yes 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 (more content not included)... Normal [facility] CBC W/Diff, Automatedon 07-2 Absolute Lymph 1.24 X10 3/uL Normal 0.83-4.51 [facility] Comment on above: Performed By: #### L 100.0100, L500.4050 #### [facility] [address] [place], [address] Absolute Neut 6.2 X10 3/uL Normal 2.0-7.7 [facility] Comment on above: Performed By: #### L 100.0100, L500.4050 #### [facility] [address] [place], [address] Basophils/100 WBC (Bld) 0.1 % Normal 0-1 [facility] Comment on above: Performed By: #### L 100.0100, L500.4050 #### [facility] [address] [place], [address] Eosinophils/100 WBC (Bld) 0.1 % Normal 0-5 [facility] Comment on above: Performed By: #### L 100.0100, L500.4050 #### [facility] [address] [place], [address] Erythrocyte distribution width (RBC) [Ratio] 12.5 % Normal 11.6-14.6 [facility] Comment on above: Performed By: #### L 100.0100, L500.4050 #### [facility] [address] [place], [address] Hematocrit (Bld) [Volume fraction] 36.6 % Low 37-47 [facility] Comment on above: Performed By: #### L 100.0100, L500.4050 #### [facility] [address] [place], [address] Hemoglobin (Bld) [Mass/Vol] 12.8 g/dL Normal 12.0-15.0 [facility] Comment on above: Performed By: #### L 100.0100, L500.4050 #### [facility] [address] [place], [address] IG% 0.500 Normal 0.0-0.9 [facility] Comment on above: Result Comment: IG% - Immature Granulocytes (promyelocytes, myelocytes and metamyelocytes) > 1% indicates that a LEFT SHIFT is Present. Performed By: #### L 100.0100, L500.4050 #### [facility] [address] [place], [address] Lymphocytes/100 WBC (Bld) 15.8 % Low 19-41 [facility] Comment on above: Performed By: #### L 100.0100, L500.4050 #### [facility] [address] [place], [address] MCH (RBC) [Entitic mass] 30.8 pg Normal 27.0-32.0 [facility] Comment on above: Performed By: #### L 100.0100, L500.4050 #### [facility] [address] [place], [address] MCHC (RBC) [Mass/Vol] 35.0 g/dL Normal 32-36 [facility] Comment on above: Performed By: #### L 100.0100, L500.4050 #### [facility] [address] [place], [address] MCV (RBC) [Entitic vol] 88.2 fL Normal 81-99 [facility] Comment on above: Performed By: #### L 100.0100, L500.4050 #### [facility] [address] [place], [address] Monocytes/100 WBC (Bld) 5.0 % Normal 0-10 [facility] Comment on above: Performed By: #### L 100.0100, L500.4050 #### [facility] [address] [place], [address] Neutrophils/100 WBC (Bld) 78.5 % High 47-70 [facility] Comment on above: Performed By: #### L 100.0100, L500.4050 #### [facility] [address] [place], [address] Nucleated RBC (Bld) [#/Vol] 0 10*3/uL Normal 0-5 [facility] Comment on above: Performed By: #### L 100.0100, L500.4050 #### [facility] [address] [place], [address] Platelet mean volume (Bld) [Entitic vol] 10.7 fL Normal 6.2-12.0 [facility] Comment on above: Performed By: #### L 100.0100, L500.4050 #### [facility] [address] [place], [address] Platelets (Bld) [#/Vol] 180 10*3/uL Normal 150-450 [facility] Comment on above: Performed By: #### L 100.0100, L500.4050 #### [facility] [address] [place], [address] RBC (Bld) [#/Vol] 4.15 10*6/uL Low 4.2-5.4 [facility] Comment on above: Performed By: #### L 100.0100, L500.4050 #### [facility] [address] [place], [address] RDW SD 39.5 fl Normal 35.1-43.9 [facility] Comment on above: Performed By: #### L 100.0100, L500.4050 #### [facility] [address] [place], [address] WBC (Bld) [#/Vol] 7.8 10*3/uL Normal 4.4-11.0 [facility] Comment on above: Performed By: #### L 100.0100, L500.4050 #### [facility] [address] [place], [address] Comprehensive Metabolic Prof [facility] 05-07-2025 Albumin [Mass/Vol] 4.2 g/dL Normal 3.5-5.0 [facility] Comment on above: Performed By: #### L 100.0100, L500.4050 #### [facility] [address] [place], [address] Albumin/Globulin [Mass ratio] 1.6 {ratio} Normal 0.9-2.4 [facility] Comment on above: Performed By: #### L 100.0100, L500.4050 #### [facility] [address] [place], [address] ALK PHOS 62 U/L Normal 35-104 [facility] Comment on above: Performed By: #### L 100.0100, L500.4050 #### [facility] [address] [place], [address] ALT [Catalytic activity/Vol] 58 U/L High <=34 [facility] Comment on above: Performed By: #### L 100.0100, L500.4050 #### [facility] [address] [place], [address] AST [Catalytic activity/Vol] 43 U/L High <=31 [facility] Comment on above: Performed By: #### L 100.0100, L500.4050 #### [facility] [address] [place], [address] Bilirubin [Mass/Vol] 0.56 mg/dL Normal 0.00-1.30 [facility] Comment on above: Performed By: #### L 100.0100, L500.4050 #### [facility] [address] [place], [address] BUN/CRE 10.7 RATIO Normal 10-20 [facility] Comment on above: Performed By: #### L 100.0100, L500.4050 #### [facility] [address] [place], [address] Calcium [Mass/Vol] 9.5 mg/dL Normal 7.6-11.0 [facility] [place] Comment on above: Performed By: #### L 100.0100, L500.4050 #### [facility] [address] [place], [address] Chloride [Moles/Vol] 102 mmol/L Normal 98-108 [facility] Comment on above: Performed By: #### L 100.0100, L500.4050 #### [facility] [address] [place], [address] CO2 [Moles/Vol] 17.7 mmol/L Low 21.0-32.0 [facility] Comment on above: Performed By: #### L 100.0100, L500.4050 #### [facility] [address] [place], [address] Creatinine [Mass/Vol] 0.59 mg/dL Low 0.70-1.20 [facility] Comment on above: Performed By: #### L 100.0100, L500.4050 #### [facility] [address] [place], [address] GAP 16 High 5-15 [facility] Comment on above: Performed By: #### L 100.0100, L500.4050 #### [facility] [address] [place], [address] GFR/1.73 sq M.predicted among non-blacks MDRD (S/P/Bld) [Vol rate/Area] 128 mL/min/{1.73_m2} Normal >60 [facility] Comment on above: Result Comment: mL/m in/1.73m2 CKD-EPI Creatinine Equation (2020) Performed By: #### L 100.0100, L500.4050 #### [facility] [address] [place], [address] Globulin (S) [Mass/Vol] 2.7 g/dL Normal 2.2-4.2 [facility] Comment on above: Performed By: #### L 100.0100, L500.4050 #### [facility] [address] [place], [address] Glucose [Mass/Vol] 110 mg/dL High 70-99 [facility] Comment on above: Performed By: #### L 100.0100, L500.4050 #### [facility] [address] [place], [address] Potassium [Moles/Vol] 3.7 mmol/L Normal 3.3-5.1 [facility] Comment on above: Performed By: #### L 100.0100, L500.4050 #### [facility] [address] [place], [address] Sodium [Moles/Vol] 135 mmol/L Normal 133-145 [facility] Comment on above: Performed By: #### L 100.0100, L500.4050 #### [facility] [address] [place], [address] T PROT 6.9 g/dL Normal 5.9-8.4 [facility] Comment on above: Performed By: #### L 100.0100, L500.4050 #### [facility] [address] [place], [address] Urea nitrogen [Mass/Vol] 6 mg/dL Normal 4-19 [facility] Comment on above: Performed By: #### L 100.0100, L500.4050 #### [facility] [address] [place], [address] HIVon 05-07-2025 HIV Non-Reactive Normal Nonreactive [facility] Comment on above: Result Comment: Non- Reactive Reactive Repeatedly reactive samples must be confirmed according to CDC recommended confirmatory algorithms. The subresults for either HIVAG or AHIV can be used as an aid in the selection of the confirmation algorithm for reactive samples. [facility]. Order the HIV antibody detection and differentiation: lc#[id number] Performed By: #### L 100.0100, L500.4050 #### [facility] [address] [place], [address] Hemoglobin A1con 05-07-2025 HbA1c (Bld) [Mass fraction] 5.1 % Normal <=5.6 [facility] Comment on above: Result Comment: Norm al < 5.7 % Prediabetic 5.7 - 6.4 % Diabetic >or= 6.5 % Please note range changes. Performed By: #### L 100.0100, L500.4050 #### [facility] [address] [place], [address] Hepatitis C Antibodyon 05-07 Hepatitis C Ab Non-Reactive Normal Nonreactive [facility] Comment on above: Result Comment: Reac tive: Presumptive evidence of antibodies to HCV. Follow CDC recommendations for supplemental testing. Non-Reactive: Antibodies to HCV were not detected; does not exclude the possibility of exposure to HCV Reactive Results are presumptive evidence of antibodies to HCV. Follow CDC recommendations for supplemental testing. Order confirmation testing: HCV Quant by PCR testing - HCVPCR #[id number] Non Reactive: < 0.8 Equivocal: >/= 0.8 to < 1.0 Reactive: >/= 1.0 The CDC requires that a reactive/equivocal HCV antibody result be sent out for confirmation. HCV Quant by PCR testing. Performed By: #### L 100.0100, L500.4050 #### [facility] [address] [place], [address] L3890.6102on 05-07-2025 HEP B Surf Ag Non-Reactive Normal Nonreactive [facility] Comment on above: Result Comment: Reac tive: Presumptive evidence of HBV. Repeatedly reactive samples must be confirmed using a neutralization test ([employer] HBsAg Confirmatory Test) Non-Reactive: HBsAg not detected; does not exclude the possibility of exposure to HBV Performed By: #### L 100.0100, L500.4050 #### [facility] [address], [address] L509.4006on 05-07-2025 Rubella IgG REAC Normal Nonreactive [facility] Comment on above: Result Comment: Anti body Result: Interpretation Non-Reactive: Non-Immune Reactive: Immune The following results were obtained with the [employer] Rubella IgG assay. Results from assays of other manufacturers cannot be used interchangeably. Performed By: #### L 100.0100, L500.4050 #### [facility] [address] [facility] [place], [address] Carry Out Clerk And Shelf Stocker Office Visit Reporton 05-07-2025 Carry Out Clerk And Shelf Stocker Office Visit Report [facility] [address], [address] [place] [address] OFFICE VISIT Date of Service: 05/07/25 MR#: [id number] Acct: [id number] Name: LUZ OLIVEIRA Rep #: [id number] : 2000 Provider: JELENA Ordonez ams Age/Sex: 24/F Location: [facility] Status: Signed Intake Vital Signs 01/02/25 18:31 04/09/25 10:40 07/28/25 14:40 Height 5 ft 1 in 5 ft 1 in 5 ft 1 in Weight: 187 lb 4 oz BMI 35.4 BP 117/83 H Intake Visit Reasons: 13wk OB Chief Complaint: 13wk OB Staff Radiographer Required: No Is patient in pain?: No Allergies escitalopram (From Lexapro) Adverse Reaction (Severe, Verified 05/07/25 14:39) SUICIDAL citalopram hydrobromide (From Celexa) Adverse Reaction (Verified 05/07/25 14:39) Other Medications ???Medication ???Instructions ???Recorded ???Confirmed ???Type zkddwacg-unp-Ky-FA 1 mg 1 tab PO DAILY 08/09/22 05/07/25 H istory tablet metoclopramide HCl 5 mg tablet 5 mg PO QACHS #60 tabs 04/19/25 Rx (Reglan) Last Menstrual Period: 02/02/25 : No PFSH PFSH Medical History Congenital vmirjy-lmbkrtj-tozjl reflux Surgical History [place] teeth removed Family History Grandmother Breast cancer Brain cancer Grandfather CVA (cerebral vascular accident) Mother Diabetes Heart failure MRSA carrier History of recurrent miscarriages Father Hypertension Social History adopted: No household members: spouse and children housing: house number of children: 1 current occupation: [employer] current occupational exposures/hazards: No pets and [...] 3-4 times per week duration: 15-30 minutes/day kalpana/christian: Shinto seatbelt use: always do you feel safe at home: Yes 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 Normal [facility] Syphilis Antibodieson 2024 Syphilis Abs Non-Reactive Normal Nonreactive [facility] Comment on above: Performed By: #### L 100.0100, L500.4050 #### [facility] [address] [place], [id number] Type AND Screenon 05-07-2025 Ab SCREEN GEL Negative Normal [facility] Comment on above: Order Comment: PN Performed By: #### L 100.0100, L500.4050 #### [facility] [address] [place], [address] Chlamydia/GC CHICHO aptimaon CHLAMY,NUC ACID Negative Normal Negative [facility] Comment on above: Performed By: #### L 100.0100 #### [facility] [address] [place], [address] GC BY NUC ACID Negative Normal Negative [facility] Comment on above: Result Comment: Perf ormed at: =G - [facility] [address] [id number] Fur Clipper: Rubi Snow MD, Phone: [phone] Performed By: #### L 100.0100 #### [facility] [address] [place], [address] PAP I-G w/rfx hrHPV-Aptimaon 04-12-2025 ADEQ Comment Normal . [facility] Comment on above: Order Comment: REDRA W. PREVIOUS SPECIMEN REJECTED DUE TO CLOTTED SPECIMEN. 01/02/251948 Result Comment: Sati sfactory for evaluation. Endocervical and/or squamous metaplastic cells (endocervical component) are present. Performed By: #### L 100.0100 #### [facility] [address] [place], [address] COMM . Normal . [facility] Comment on above: Order Comment: REDRA W. PREVIOUS SPECIMEN REJECTED DUE TO CLOTTED SPECIMEN. 01/02/251948 Performed By: #### L 100.0100 #### [facility] [address] [place], [address] COMMENT Comment Normal . [facility] Comment on above: Order Comment: REDRA W. PREVIOUS SPECIMEN REJECTED DUE TO CLOTTED SPECIMEN. 01/02/251948 Result Comment: This liquid based ThinPrep(R) pap test was screened with the use of an image guided system. Performed By: #### L 100.0100 #### [facility] [address] [place], [address] DIAG Comment Normal . [facility] Comment on above: Order Comment: REDRA W. PREVIOUS SPECIMEN REJECTED DUE TO CLOTTED SPECIMEN. 01/02/251948 Result Comment: NEGA TIVE FOR INTRAEPITHELIAL LESION OR MALIGNANCY. Performed By: #### L 100.0100 #### [facility] [address] [place], [place], [address] HPV RFLX Comment Normal . [facility] Comment on above: Order Comment: REDRA W. PREVIOUS SPECIMEN REJECTED DUE TO CLOTTED SPECIMEN. 01/02/251948 Result Comment: The HPV DNA reflex criteria were not met with this specimen result therefore, no HPV testing was performed. Performed at: - [facility] [id number] Fur Clipper: Rubi Snow MD, Phone: [phone] Performed By: #### L 100.0100 #### [facility] [address] [place], [place], [id number] PAPSMR Comment Normal . [facility] Comment on above: Order Comment: [...] occur. Performed By: #### L 100.0100 #### [facility] [address] [place], [place], [address] PERFORM Comment Normal . [facility] Comment on above: Order Comment: REDRA W. PREVIOUS SPECIMEN REJECTED DUE TO CLOTTED SPECIMEN. 01/02/251948 Result Comment: Delores Lombardo, Dinking Machine Operator (ASCP) Performed By: #### L 100.0100 #### [facility] [address] [place], [place], [address] Urine Cultureon 04-11-2025 URC Mixed Gram Positive Organisms [place] Count 80,000-100,000 MIXC Mixed contaminants. Submit a new specimen if indicated. Normal [facility] Comment on above: Performed By: #### L 100.0100 #### [facility] [place], [address] Carry Out Clerk And Shelf Stocker Office Visit Reporton 04-09-2025 Carry Out Clerk And Shelf Stocker Office Visit Report [facility] [address] [facility], [address] [place] [address] OFFICE VISIT Date of Service: 04/09/25 MR#: [id number] Acct: [id number] Name: LUZ OLIVEIRA Rep #: [id number] : 2000 Provider: Dr. Geraldine storey MD Age/Sex: 24/F Location: [facility] Status: Signed Intake Vital Signs 01/02/25 18:31 03/13/25 11:49 04/09/25 10:39 04/09/25 10:40 Height 5 ft 1 in 5 ft 1 in 5 ft 1 in 5 ft 1 in Weight: 194 lb 8 oz BMI 36.7 BP 106/69 Intake Visit Reasons: *NEW* NOB LMP 02/02, KIMO 11/09 per Staff Radiographer Required: No Is patient in pain?: Yes (cramping with urination) Allergies escitalopram (From Lexapro) Adverse Reaction (Severe, Verified 04/09/25 10:39) SUICIDAL citalopram hydrobromide (From Celexa) Adverse Reaction (Verified 04/09/25 10:39) Other Medications ???Medication ???Instructions ???Recorded ???Confirmed ???Type qrzezavo-tzc-Kp-FA 1 mg 1 tab PO DAILY 08/09/22 04/09/25 H istory tablet Last Menstrual Period: 02/02/25 Zika: Zika virus screening: Negative : No PFSH PFSH Medical History (Updated 04/09/25 @ 10:50 by Remedios Wong) Congenital mylknr-kxqlqly-wupiu reflux Surgical History [place] teeth removed Family History Grandmother Breast cancer Brain cancer Grandfather CVA (cerebral vascular accident) Mother Diabetes Heart failure MRSA carrier History of recurrent miscarriages Father Hypertension Social History adopted: No household members: spouse and children housing: house number of children: 1 current occupation: [employer] current occupational exposures/hazards: No pets and [...] 3-4 times per week duration: 15-30 minutes/day kalpana/christian: Shinto seatbelt use: always do you feel safe at home: Yes 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 Date Name GA/Weeks Outcome Route Bth Weight Infant Gen Labor Lgth Anesthesia Del Locatn Provider FOB 10/11/18 Chemical 4 spontaneous 03/30/23 Amanda 39 live - full term vacuum 6lbs 1oz Female epidural [facility] Delivery Date: 03/30/23 Last Updated [...] Normal am (more content not included)... Normal [facility] Protein+Creatinine Ratio,Uri neon 04-09-2025 PROT:CRE RATIO 58 mg/g CRE Normal 0-200 [facility] Comment on above: Performed By: #### L 100.0100 #### [facility] [address] [place], [address] Protein (U) [Mass/Vol] 15.6 mg/dL High 0.0-12.0 [facility] Comment on above: Performed By: #### L 100.0100 #### [facility] [address] [place], [address] Transvaginal w/Preg USon Transvaginal w/Preg US [facility] [address] [place], [place] [address] Transvaginal w/Preg US MR#: [id number] Acct: [id number] Name: LUZ OLIVEIRA Rep #: [id number] : 2000 F 24 From: Maxwell Ponce MD PCP: Care Physician,No Primary Status: REG CLI Study: Transvaginal w/Preg US Date of Exam: 03/15/25 Exam# [id number] Ordering Dr: Remedios Garcia WALLPAPER PRINTER WALLPAPER PRINTER -C PROCEDURE: TRANSVAGINAL W/PREG US 03/15/2025 REASON [...] follow-up. 2. Small perigestational hemorrhage. Reading Location: [id number] CC: JARAD Garcia; No Primary Care Physician Underwear Finisher: Signed Normal [facility] hCG Titer Quant., Serumon HCG QUANT. 7025 mIU/mL High <9 non-preg [facility] Comment on above: Result Comment: Gest ational Age 0.2-1 Week: 5-50 mIU/mL 1-2 Weeks: 50-500 mIU/mL 2-3 Weeks: 100-5000 mIU/mL 3-4 Weeks: 500-10,000 mIU/mL 4-5 Weeks:1000-50,000 mIU/mL 5-6 Weeks: 10,000-100,000 mIU/mL 6-8 Weeks: 15,000-200,000 mIU/mL 2-3 Months:10,000-100,000 mIU/mL Performed By: #### L 100.0100 #### [facility] [address] [place], [address] Office Visit Reporton 2024 Office Visit Report [facility] [address] [place] [address] OFFICE VISIT Date of Service: 03/13/25 MR#: [id number] Acct: [id number] Patient: LUZ OLIVEIRA Rep #: [id number] : 2000 Provider: JARAD moctezuma Age/Sex: 24/F Location: [facility] Status: Signed Intake Vital Signs 01/02/25 18:31 03/13/25 11:49 Height 5 ft 1 in 5 ft 1 in Weight: 200 lb 6 oz BMI 37.8 BP 118/72 Intake Visit Reasons: Pre New OB, Confirm preg, Vitals Staff Radiographer Required: No Is patient in pain?: No Allergies escitalopram (From Lexapro) Adverse Reaction (Severe, Verified 03/13/25 11:12) SUICIDAL citalopram hydrobromide (From Celexa) Adverse Reaction (Verified 03/13/25 11:12) Other Medications ???Medication ???Instructions ???Recorded ???Confirmed ???Type gutfcduz-kik-Zi-FA 1 mg 1 tab PO DAILY 08/09/22 [...] Pt with C/O spotting since last night. [facility] notified in office. HcG and TV [...] Acute (9) Autism: Status: Acute (10) Congenital brfwrs-mmkcpzf-kmpoz reflux: Status: Acute Comment: Recurrent UTI's and Kidney stones Orders: Orders hCG Titer Quant., Serum Today Remedios Garcia WALLPAPER PRINTER, WALLPAPER PRINTER-C O20.9 - Hemorrhage in early , unspecified [...] fallen in the past year?: No 03/13/25 3985 (more content not included)... Normal [facility] hCG Titer Quant., Serumon HCG QUANT. 3759 mIU/mL High <9 non-preg [facility] Comment on above: Result Comment: Gest ational Age 0.2-1 Week: 5-50 mIU/mL 1-2 Weeks: 50-500 mIU/mL 2-3 Weeks: 100-5000 mIU/mL 3-4 Weeks: 500-10,000 mIU/mL 4-5 Weeks:1000-50,000 mIU/mL 5-6 Weeks: 10,000-100,000 mIU/mL 6-8 Weeks: 15,000-200,000 mIU/mL 2-3 Months:10,000-100,000 mIU/mL Performed By: #### L 100.0100 #### [facility] [address] [facility] [place], [place], [id number] Culture, Blood (WB)on 2024 CUB Blood cultures x2, from two different sites No growth in 5 days. Normal [facility] Comment on above: Performed By: #### M 100.678, M100.2200, L400.0001 #### [facility] [address] [facility] [place], [place], [id number] Urine Cultureon 01-04-2025 URC Presumptive E. coli [place] Count 25,000-50,000 Presumptive E. coli: REACTION Ampicillin [...] TMP SMX Islt BRANDI <=20 S Normal [facility] Comment on above: Performed By: #### M 100.678, M100.2200, L400.0001 #### [facility] [address] [facility] [place], [address] Abdomen/Pelvis W IV Cont ONL Yon 01-02-2025 Abdomen/Pelvis W IV Cont ONLY [facility] [address] [place], [place] [address] Abdomen/Pelvis W IV Cont ONLY MR#: [id number] Acct: [id number] Name: LUZ OLIVEIRA Rep #: [id number] : 2000 F 24 From: Yari Reyes nd, MD PCP: Care Physician,No Primary Status: REG ER Study: Abdomen/Pelvis W IV Cont ONLY Date of Exam: Exam# [id number] Ordering Dr: Mendez Gardner DO PROCEDURE: ABDOMEN/PELVIS [...] recommended. 3. Diffuse hepatic steatosis. Reading Location: [facility] CC: Dr. Mendez Gardner, DO; No Primary Care Physician Underwear Finisher: Signed Normal [facility] CBC W/Diff, Automatedon 12-10 Absolute Lymph 0.64 X10 3/uL Low 0.83-4.51 [facility] Comment on above: Order Comment: REDRA W. PREVIOUS SPECIMEN REJECTED DUE TO CLOTTED SPECIMEN. 01/02/251948 Performed By: #### L 100.0100 #### [facility] [address] [place], [address] Absolute Neut 9.4 X10 3/uL High 2.0-7.7 [facility] Comment on above: Order Comment: REDRA W. PREVIOUS SPECIMEN REJECTED DUE TO CLOTTED SPECIMEN. 01/02/251948 Performed By: #### L 100.0100 #### [facility] [address] [place], [address] Basophils/100 WBC (Bld) 0.1 % Normal 0-1 [facility] Comment on above: Order Comment: REDRA W. PREVIOUS SPECIMEN REJECTED DUE TO CLOTTED SPECIMEN. 01/02/251948 Performed By: #### L 100.0100 #### [facility] [address] [place], [address] Eosinophils/100 WBC (Bld) 0.0 % Normal 0-5 [facility] Comment on above: Order Comment: REDRA W. PREVIOUS SPECIMEN REJECTED DUE TO CLOTTED SPECIMEN. 01/02/251948 Performed By: #### L 100.0100 #### [facility] [address] [place], [address] Erythrocyte distribution width (RBC) [Ratio] 12.4 % Normal 11.6-14.6 [facility] Comment on above: Order Comment: REDRA W. PREVIOUS SPECIMEN REJECTED DUE TO CLOTTED SPECIMEN. 01/02/251948 Performed By: #### L 100.0100 #### [facility] [address] [place], [address] Hematocrit (Bld) [Volume fraction] 41.9 % Normal 37-47 [facility] Comment on above: Order Comment: REDRA W. PREVIOUS SPECIMEN REJECTED DUE TO CLOTTED SPECIMEN. 01/02/251948 Performed By: #### L 100.0100 #### [facility] [address] [place], [address] Hemoglobin (Bld) [Mass/Vol] 14.6 g/dL Normal 12.0-15.0 [facility] Comment on above: Order Comment: REDRA W. PREVIOUS SPECIMEN REJECTED DUE TO CLOTTED SPECIMEN. 01/02/251948 Performed By: #### L 100.0100 #### [facility] [address] [place], [address] IG% 0.600 Normal 0.0-0.9 [facility] Comment on above: Order Comment: REDRA W. PREVIOUS SPECIMEN REJECTED DUE TO CLOTTED SPECIMEN. 01/02/251948 Result Comment: IG% - Immature Granulocytes (promyelocytes, myelocytes and metamyelocytes) > 1% indicates that a LEFT SHIFT is Present. Performed By: #### L 100.0100 #### [facility] [address] [place], [address] Lymphocytes/100 WBC (Bld) 5.9 % Low 19-41 [facility] Comment on above: Order Comment: REDRA W. PREVIOUS SPECIMEN REJECTED DUE TO CLOTTED SPECIMEN. 01/02/251948 Performed By: #### L 100.0100 #### [facility] [address] [place], [address] MCH (RBC) [Entitic mass] 30.8 pg Normal 27.0-32.0 [facility] Comment on above: Order Comment: REDRA W. PREVIOUS SPECIMEN REJECTED DUE TO CLOTTED SPECIMEN. 01/02/251948 Performed By: #### L 100.0100 #### [facility] [address] [place], [address] MCHC (RBC) [Mass/Vol] 34.8 g/dL Normal 32-36 [facility] Comment on above: Order Comment: REDRA W. PREVIOUS SPECIMEN REJECTED DUE TO CLOTTED SPECIMEN. 01/02/251948 Performed By: #### L 100.0100 #### [facility] [address] [place], [address] MCV (RBC) [Entitic vol] 88.4 fL Normal 81-99 [facility] Comment on above: Order Comment: REDRA W. PREVIOUS SPECIMEN REJECTED DUE TO CLOTTED SPECIMEN. 01/02/251948 Performed By: #### L 100.0100 #### [facility] [address] [place], [address] Monocytes/100 WBC (Bld) 5.9 % Normal 0-10 [facility] Comment on above: Order Comment: REDRA W. PREVIOUS SPECIMEN REJECTED DUE TO CLOTTED SPECIMEN. 01/02/251948 Performed By: #### L 100.0100 #### [facility] [address] [place], [address] Neutrophils/100 WBC (Bld) 87.5 % High 47-70 [facility] Comment on above: Order Comment: REDRA W. PREVIOUS SPECIMEN REJECTED DUE TO CLOTTED SPECIMEN. 01/02/251948 Performed By: #### L 100.0100 #### [facility] [address] [place], [address] Nucleated RBC (Bld) [#/Vol] 0 10*3/uL Normal 0-5 [facility] Comment on above: Order Comment: REDRA W. PREVIOUS SPECIMEN REJECTED DUE TO CLOTTED SPECIMEN. 01/02/251948 Performed By: #### L 100.0100 #### [facility] [address] [place], [address] Platelet mean volume (Bld) [Entitic vol] 10.2 fL Normal 6.2-12.0 [facility] Comment on above: Order Comment: REDRA W. PREVIOUS SPECIMEN REJECTED DUE TO CLOTTED SPECIMEN. 01/02/251948 Performed By: #### L 100.0100 #### [facility] [address] [place], [address] Platelets (Bld) [#/Vol] 188 10*3/uL Normal 150-450 [facility] Comment on above: Order Comment: REDRA W. PREVIOUS SPECIMEN REJECTED DUE TO CLOTTED SPECIMEN. 01/02/251948 Performed By: #### L 100.0100 #### [facility] [address] [place], [address] RBC (Bld) [#/Vol] 4.74 10*6/uL Normal 4.2-5.4 [facility] Comment on above: Order Comment: REDRA W. PREVIOUS SPECIMEN REJECTED DUE TO CLOTTED SPECIMEN. 01/02/251948 Performed By: #### L 100.0100 #### [facility] [address] [place], [address] RDW SD 40.1 fl Normal 35.1-43.9 [facility] Comment on above: Order Comment: REDRA W. PREVIOUS SPECIMEN REJECTED DUE TO CLOTTED SPECIMEN. 01/02/251948 Performed By: #### L 100.0100 #### [facility] [address] [place], [address] WBC (Bld) [#/Vol] 10.8 10*3/uL Normal 4.4-11.0 [facility] Comment on above: Order Comment: REDRA W. PREVIOUS SPECIMEN REJECTED DUE TO CLOTTED SPECIMEN. 01/02/251948 Performed By: #### L 100.0100 #### [facility] [address] [place], [address] Absolute Neut Normal 2.0-7.7 [facility] Comment on above: Result Comment: This specimen has been REJECTED due to Laboratory criteria: Clotted. ED-ELVIN has been notified of need of recollection. 01/02/251947 Performed By: #### M 100.678, M100.2200, L400.0001 #### [facility] [address] [place], [address] HCT Normal 37-47 [facility] Comment on above: Result Comment: This specimen has been REJECTED due to Laboratory criteria: Clotted. ED-ELVIN has been notified of need of recollection. 01/02/251947 Performed By: #### M 100.678, M100.2200, L400.0001 #### [facility] [address] [place], [address] HGB Normal 12.0-15.0 [facility] Comment on above: Result Comment: This specimen has been REJECTED due to Laboratory criteria: Clotted. ED-ELVIN has been notified of need of recollection. 01/02/251947 Performed By: #### M 100.678, M100.2200, L400.0001 #### [facility] [address] [place], [address] MCH Normal 27.0-32.0 [facility] Comment on above: Result Comment: This specimen has been REJECTED due to Laboratory criteria: Clotted. ED-ELVIN has been notified of need of recollection. 01/02/251947 Performed By: #### M 100.678, M100.2200, L400.0001 #### [facility] [address] [place], [address] MCHC Normal 32-36 [facility] Comment on above: Result Comment: This specimen has been REJECTED due to Laboratory criteria: Clotted. ED-ELVIN has been notified of need of recollection. 01/02/251947 Performed By: #### M 100.678, M100.2200, L400.0001 #### [facility] [address] [place], [address] MCV Normal 81-99 [facility] Comment on above: Result Comment: This specimen has been REJECTED due to Laboratory criteria: Clotted. ED-ELVIN has been notified of need of recollection. 01/02/251947 Performed By: #### M 100.678, M100.2200, L400.0001 #### [facility] [address] [place], [address] NEUT% Normal 47-70 [facility] Comment on above: Result Comment: This specimen has been REJECTED due to Laboratory criteria: Clotted. ED-ELVIN has been notified of need of recollection. 01/02/251947 Performed By: #### M 100.678, M100.2200, L400.0001 #### [facility] [address] [place], [address] PLT Normal 150-450 [facility] Comment on above: Result Comment: This specimen has been REJECTED due to Laboratory criteria: Clotted. ED-ELVIN has been notified of need of recollection. 01/02/251947 Performed By: #### M 100.678, M100.2200, L400.0001 #### [facility] [address] [place], [address] RBC Normal 4.2-5.4 [facility] Comment on above: Result Comment: This specimen has been REJECTED due to Laboratory criteria: Clotted. ED-ELVIN has been notified of need of recollection. 01/02/251947 Performed By: #### M 100.678, M100.2200, L400.0001 #### [facility] [address] [place], [address] RDW CV Normal 11.6-14.6 [facility] Comment on above: Result Comment: This specimen has been REJECTED due to Laboratory criteria: Clotted. ED-ELVIN has been notified of need of recollection. 01/02/251947 Performed By: #### M 100.678, M100.2200, L400.0001 #### [facility] [address] [place], [address] RDW SD Normal 35.1-43.9 [facility] Comment on above: Result Comment: This specimen has been REJECTED due to Laboratory criteria: Clotted. ED-ELVIN has been notified of need of recollection. 01/02/251947 Performed By: #### M 100.678, M100.2200, L400.0001 #### [facility] [address] [place], [address] WBC Normal 4.4-11.0 [facility] Comment on above: Result Comment: This specimen has been REJECTED due to Laboratory criteria: Clotted. ED-ELVIN has been notified of need of recollection. 01/02/251947 Performed By: #### M 100.678, M100.2200, L400.0001 #### [facility] [address] [place], [address] Comprehensive Metabolic Prof ilon 01-02-2025 Albumin [Mass/Vol] 4.5 g/dL Normal 3.5-5.0 [facility] Comment on above: Performed By: #### M 100.678, M100.2200, L400.0001 #### [facility] [address] [place], [address] Albumin/Globulin [Mass ratio] 1.3 {ratio} Normal 0.9-2.4 [facility] Comment on above: Performed By: #### M 100.678, M100.2200, L400.0001 #### [facility] [address] [place], [address] ALK PHOS 69 U/L Normal 35-104 [facility] Comment on above: Performed By: #### M 100.678, M100.2200, L400.0001 #### [facility] [address] [place], [address] ALT [Catalytic activity/Vol] 50 U/L High <=34 [facility] Comment on above: Performed By: #### M 100.678, M100.2200, L400.0001 #### [facility] [address] [place], [address] AST [Catalytic activity/Vol] 28 U/L Normal <=31 [facility] Comment on above: Performed By: #### M 100.678, M100.2200, L400.0001 #### [facility] [address] [place], [address] Bilirubin [Mass/Vol] 0.96 mg/dL Normal 0.00-1.30 [facility] Comment on above: Performed By: #### M 100.678, M100.2200, L400.0001 #### [facility] [address] [place], [address] BUN/CRE 13.3 RATIO Normal 10-20 [facility] Comment on above: Performed By: #### M 100.678, M100.2200, L400.0001 #### [facility] [address] [place], [address] Calcium [Mass/Vol] 9.6 mg/dL Normal 7.6-11.0 [facility] Comment on above: Performed By: #### M 100.678, M100.2200, L400.0001 #### [facility] [address] [place], [address] Chloride [Moles/Vol] 102 mmol/L Normal 98-108 [facility] Comment on above: Performed By: #### M 100.678, M100.2200, L400.0001 #### [facility] [address] [place], [address] CO2 [Moles/Vol] 23.0 mmol/L Normal 21.0-32.0 [facility] Comment on above: Performed By: #### M 100.678, M100.2200, L400.0001 #### [facility] [address] [place], [address] Creatinine [Mass/Vol] 0.93 mg/dL Normal 0.70-1.20 [facility] Comment on above: Performed By: #### M 100.678, M100.2200, L400.0001 #### [facility] [address] [place], [address] ECRCL 94.15 ml/min Normal 50-250 [facility] Comment on above: Performed By: #### M 100.678, M100.2200, L400.0001 #### [facility] [address] [place], [address] GAP 13 Normal 5-15 [facility] Comment on above: Performed By: #### M 100.678, M100.2200, L400.0001 #### [facility] [address] [place], [address] GFR/1.73 sq M.predicted among non-blacks MDRD (S/P/Bld) [Vol rate/Area] 87 mL/min/{1.73_m2} Normal >60 [facility] Comment on above: Result Comment: mL/m in/1.73m2 CKD-EPI Creatinine Equation (2020) Performed By: #### M 100.678, M100.2200, L400.0001 #### [facility] [address] [place], [address] Globulin (S) [Mass/Vol] 3.4 g/dL Normal 2.2-4.2 [facility] Comment on above: Performed By: #### M 100.678, M100.2200, L400.0001 #### [facility] [address] [place], [address] Glucose [Mass/Vol] 109 mg/dL High 70-99 [facility] Comment on above: Performed By: #### M 100.678, M100.2200, L400.0001 #### [facility] [address] [place], [address] Potassium [Moles/Vol] 3.4 mmol/L Normal 3.3-5.1 [facility] Comment on above: Performed By: #### M 100.678, M100.2200, L400.0001 #### [facility] [address] [place], [address] Sodium [Moles/Vol] 138 mmol/L Normal 133-145 [facility] Comment on above: Performed By: #### M 100.678, M100.2200, L400.0001 #### [facility] [address] [place], [address] T PROT 7.9 g/dL Normal 5.9-8.4 [facility] Comment on above: Performed By: #### M 100.678, M100.2200, L400.0001 #### [facility] [address] [place], [address] Urea nitrogen [Mass/Vol] 12 mg/dL Normal 4-19 [facility] Comment on above: Performed By: #### M 100.678, M100.2200, L400.0001 #### [facility] [address] [place], [address] Emergency Department Summary on 01-02-2025 Emergency Department Summary [facility] Medical Records Department [address] [place] [address] Emergency Department Summary 01/02/25 MR#: [id number] Acct: [id number] Name: LUZ OLIVEIRA Rep #: [id number] : 2000 24 From: Mendez Gardner DO [...] States that she tried Azo at home. [facility] Medical History Lumbar radiculopathy, acute Acute lumbar myofascial strain Blunt abdominal trauma Chest wall contusion Cervical strain, acute Concussion without loss of consciousness Crushing injury of right great toe, initial encounter Congenital ntolhh-tlvofxz-ywpzo reflux Home Medications ???Medication ???Instructions ???Recorded ???Last Taken ???Type rrxappod-mlw-Mh-FA 1 mg 1 tab PO DAILY 08/09/22 [...] (cerebral vascular accident) Mother Diabetes Surgical History [place] teeth removed Social History household members: spouse [...] following commands knew that she was at [facility] years 2024 Skin:, No rashes or [...] Respiratory Rat (more content not included)... Normal [facility] Lactic Acidon 01-02-2025 Lactate [Moles/Vol] 1.1 mmol/L Normal 0.0-2.0 [facility] Comment on above: Order Comment: Y Performed By: #### M 100.678, M100.2200, L400.0001 #### [facility] [address] [facility] [place], [place], [address] Lipaseon 01-02-2025 Lipase [Catalytic activity/Vol] 19 U/L Normal 13-75 [facility] Comment on above: Result Comment: Pletiny paez note: LIPASE revised reference range effective 23. New Lipase methodology. Expected to produce lower values than the previous assay method. NEW Reference Range: 13 - 75 U/L Performed By: #### M 100.678, M100.2200, L400.0001 #### [facility] [address] [facility] [place], [address] M100.678on 01-02-2025 M100.678 Pending SARS-CoV-2 (COVID 19) Negative INFLUENZA A Negative INFLUENZA B Negative RSV PCR Negative Normal [facility] Comment on above: Performed By: #### M 100.678, M100.2200, L400.0001 #### [facility] [address] [place], [address] Partial Thromboplast Timeon 01-02-2025 aPTT Coag (Bld) [Time] 33.7 s Normal 24.1-36.2 [facility] Comment on above: Performed By: #### M 100.678, M100.2200, L400.0001 #### [facility] [address] [place], [address] ,Serum,hCG Quali.on 01-02-2025 HCG, SERUM QUAL Negative Normal [facility] Comment on above: Performed By: #### M 100.678, M100.2200, L400.0001 #### [facility] [address] [place], [address] Prothrombin Time w/INRon INR Coag (PPP) [Relative time] 1.1 {INR} Normal [facility] Comment on above: Performed By: #### M 100.678, M100.2200, L400.0001 #### [facility] [address] [place], [address] PT Coag (PPP) [Time] 14.5 s Normal 11.7-14.9 [facility] Comment on above: Performed By: #### M 100.678, M100.2200, L400.0001 #### [facility] [address] [place], [address] Urinalysis, Completeon 01-02 EPI,SQUAMOUS 5-10 SEEN Normal 5-10 [facility] Comment on above: Order Comment: CLEAN CATCH Performed By: #### M 100.678, M100.2200, L400.0001 #### [facility] [address] [place], [address] BACTERIA 3+ /hpf Normal None Seen [facility] Comment on above: Order Comment: CLEAN CATCH Performed By: #### M 100.678, M100.2200, L400.0001 #### [facility] [address] [place], [address] RBC 5-10 SEEN Normal 0-5 [facility] Comment on above: Order Comment: CLEAN CATCH Performed By: #### M 100.678, M100.2200, L400.0001 #### [facility] [address] [place], [address] WBC >100 SEEN Normal 0-5 [facility] Comment on above: Order Comment: CLEAN CATCH Performed By: #### M 100.678, M100.2200, L400.0001 #### [facility] [address] [place], [address] Mucus Ql (Urine sed) [address] [facility] Comment on above: Order Comment: CLEAN CATCH Performed By: #### M 100.678, M100.2200, L400.0001 #### [facility] [address] [place], [address] XR SPINE CERVICAL AP/LATon 0 02-19-2024 XR [...] 2. No fracture or subluxation. Interpreted by: Kmaar Lilly MD Preliminary Report By: Kamar Lilly MD Electronically signed By Kamar Lilly MD Dictated Date: 02/19/2024 1:38:21 AM Prelim Date: 02/19/2024 1:39:46 AM Sign Date: 02/19/2024 1:39:46 AM Ordering Provider: KIRSTEN Miller [facility] ([place] B12on 10-19-2023 Cobalamin (Vitamin B12) [Mass/Vol] 279 pg/mL Normal 211-911 [facility] ([place] Comment on above: Performed By: #### G FR, LIPID, HFP, A1C, IBC, TSH, CBC, ANEU, FT4, FERR, ADIFF, CMP, FE, VIDH, FT3 #### [address] [address] #### FOL, B12 #### [address] [address] FOLon 10-19-2023 Folate 8.29 ng/mL Normal 5.38-24.00 [facility] ([place]) Comment on above: Performed By: #### G FR, LIPID, HFP, A1C, IBC, TSH, CBC, ANEU, FT4, FERR, ADIFF, CMP, FE, VIDH, FT3 #### [address] [address] #### FOL, B12 #### [address] [address] .Auto Diffon 10-15-2023 Basophil, Absolute 0.0 10 3/mcL Normal 0.0-0.2 [facility]) Comment on above: Performed By: #### G FR, LIPID, HFP, A1C, IBC, TSH, CBC, ANEU, FT4, FERR, ADIFF, CMP, FE, VIDH, FT3 #### [address] [address] #### FOL, B12 #### [address] [address] Basophils/100 WBC (Bld) 0.2 % Normal 0.0-2.5 [facility] ([place]) Comment on above: Performed By: #### G FR, LIPID, HFP, A1C, IBC, TSH, CBC, ANEU, FT4, FERR, ADIFF, CMP, FE, VIDH, FT3 #### [address] [address] #### FOL, B12 #### [address] [address] Eosinophil, Absolute 0.0 10 3/mcL Normal 0.0-0.4 [facility] ([place]) Comment on above: Performed By: #### G FR, LIPID, HFP, A1C, IBC, TSH, CBC, ANEU, FT4, FERR, ADIFF, CMP, FE, VIDH, FT3 #### [address] [address] #### FOL, B12 #### [address] [address] Eosinophils/100 WBC (Bld) 0.6 % Normal 0.0-7.0 [facility] ([place]) Comment on above: Performed By: #### G FR, LIPID, HFP, A1C, IBC, TSH, CBC, ANEU, FT4, FERR, ADIFF, CMP, FE, VIDH, FT3 #### [address] [address] #### FOL, B12 #### [address] [address] Lymphocyte, Absolute 1.5 10 3/mcL Normal 0.8-3.9 [facility] ([place]) Comment on above: Performed By: #### G FR, LIPID, HFP, A1C, IBC, TSH, CBC, ANEU, FT4, FERR, ADIFF, CMP, FE, VIDH, FT3 #### [address] [address] #### FOL, B12 #### [address] [address] Lymphocytes/100 WBC (Bld) 23.2 % Normal 10.0-50.0 [facility] ([place]) Comment on above: Performed By: #### G FR, LIPID, HFP, A1C, IBC, TSH, CBC, ANEU, FT4, FERR, ADIFF, CMP, FE, VIDH, FT3 #### [address] [address] #### FOL, B12 #### [address] [address] Monocyte, Absolute 0.4 10 3/mcL Normal 0.2-1.0 [facility] ([place]) Comment on above: Performed By: #### G FR, LIPID, HFP, A1C, IBC, TSH, CBC, ANEU, FT4, FERR, ADIFF, CMP, FE, VIDH, FT3 #### [address] [address] #### FOL, B12 #### [address] [address] Monocytes/100 WBC (Bld) 5.6 % Normal 1.7-13.0 [facility] ([place]) Comment on above: Performed By: #### G FR, LIPID, HFP, A1C, IBC, TSH, CBC, ANEU, FT4, FERR, ADIFF, CMP, FE, VIDH, FT3 #### [address] [address] #### FOL, B12 #### [address] [address] Neutrophils/100 WBC (Bld) 70.4 % Normal 37.0-80.0 [facility] ([place]) Comment on above: Performed By: #### G FR, LIPID, HFP, A1C, IBC, TSH, CBC, ANEU, FT4, FERR, ADIFF, CMP, FE, VIDH, FT3 #### [address] [address] #### FOL, B12 #### [address] [address] .GFRon 10-15-2023 GFR Non- 73 ml/min/1.73sqm Normal [facility] ([place]) Comment on above: Result Comment: GFR Population [...] FERR, ADIFF, CMP, FE, VIDH, FT3 #### [address] [address] #### FOL, B12 #### [address] [address] GFR 89 ml/min/1.73sqm Normal [facility] ([place]) Comment on above: Result Comment: GFR Population [...] FERR, ADIFF, CMP, FE, VIDH, FT3 #### [address] [address] #### FOL, B12 #### [address] [address] .NEUABSon 10-15-2023 Neutrophil, Absolute 4.5 10 3/mcL Normal 2.9-6.2 [facility] ([place]) Comment on above: Performed By: #### G FR, LIPID, HFP, A1C, IBC, TSH, CBC, ANEU, FT4, FERR, ADIFF, CMP, FE, VIDH, FT3 #### [address] [address] #### FOL, B12 #### [address] [address] A1Con 10-15-2023 HbA1c (Bld) [Mass fraction] 4.9 % Normal 4.3-6.4 [facility] ([place]) Comment on above: Performed By: #### G FR, LIPID, HFP, A1C, IBC, TSH, CBC, ANEU, FT4, FERR, ADIFF, CMP, FE, VIDH, FT3 #### [address] [address] #### FOL, B12 #### [place] [address] CBCon 10-15-2023 Erythrocyte distribution width (RBC) [Ratio] 14.1 % Normal 11.5-14.5 [facility] ([place]) Comment on above: Performed By: #### G FR, LIPID, HFP, A1C, IBC, TSH, CBC, ANEU, FT4, FERR, ADIFF, CMP, FE, VIDH, FT3 #### [address] [address] #### FOL, B12 #### [address] [address] Hematocrit (Bld) [Volume fraction] 42.4 % Normal 37.0-47.0 [facility] ([place]) Comment on above: Performed By: #### G FR, LIPID, HFP, A1C, IBC, TSH, CBC, ANEU, FT4, FERR, ADIFF, CMP, FE, VIDH, FT3 #### [address] [address] #### FOL, B12 #### [address] [address] Hgb 14.5 G/dL Normal 12.0-16.0 [facility] ([place]) Comment on above: Performed By: #### G FR, LIPID, HFP, A1C, IBC, TSH, CBC, ANEU, FT4, FERR, ADIFF, CMP, FE, VIDH, FT3 #### [address] [address] #### FOL, B12 #### [address] [address] MCH (RBC) [Entitic mass] 30.8 pg Normal 27.0-31.2 [facility] ([place]) Comment on above: Performed By: #### G FR, LIPID, HFP, A1C, IBC, TSH, CBC, ANEU, FT4, FERR, ADIFF, CMP, FE, VIDH, FT3 #### [address] [address] #### FOL, B12 #### [address] [address] MCHC 34.2 G/dL Normal 33.0-37.0 [facility] ([place]) Comment on above: Performed By: #### G FR, LIPID, HFP, A1C, IBC, TSH, CBC, ANEU, FT4, FERR, ADIFF, CMP, FE, VIDH, FT3 #### [address] [address] #### FOL, B12 #### [address] [address] MCV (RBC) [Entitic vol] 90.3 fL Normal 80.0-94.0 [facility] ([place]) Comment on above: Performed By: #### G FR, LIPID, HFP, A1C, IBC, TSH, CBC, ANEU, FT4, FERR, ADIFF, CMP, FE, VIDH, FT3 #### [address] [address] #### FOL, B12 #### [address] [address] Platelet 237 10 3/mcL Normal 130-400 [facility] ([place]) Comment on above: Performed By: #### G FR, LIPID, HFP, A1C, IBC, TSH, CBC, ANEU, FT4, FERR, ADIFF, CMP, FE, VIDH, FT3 #### [address] [address] #### FOL, B12 #### [address] [address] Platelet mean volume (Bld) [Entitic vol] 8.6 fL Normal 7.4-10.4 [facility] ([place]) Comment on above: Performed By: #### G FR, LIPID, HFP, A1C, IBC, TSH, CBC, ANEU, FT4, FERR, ADIFF, CMP, FE, VIDH, FT3 #### [address] [address] #### FOL, B12 #### [address] [address] RBC 4.69 10 6/mcL Normal 4.20-5.40 [facility] ([place]) Comment on above: Performed By: #### G FR, LIPID, HFP, A1C, IBC, TSH, CBC, ANEU, FT4, FERR, ADIFF, CMP, FE, VIDH, FT3 #### [address] [address] #### FOL, B12 #### [place] [address] WBC 6.4 10 3/mcL Normal 4.6-10.8 [facility] ([place]) Comment on above: Performed By: #### G FR, LIPID, HFP, A1C, IBC, TSH, CBC, ANEU, FT4, FERR, ADIFF, CMP, FE, VIDH, FT3 #### [address] [address] #### FOL, B12 #### [address] [address] CMPon 10-15-2023 BUN/Creatinine Ratio 17 ratio Normal 7-27 [facility] ([place]) Comment on above: Performed By: #### G FR, LIPID, HFP, A1C, IBC, TSH, CBC, ANEU, FT4, FERR, ADIFF, CMP, FE, VIDH, FT3 #### [address] [address] #### FOL, B12 #### [address] [address] Calcium [Mass/Vol] 9.5 mg/dL Normal 8.4-10.2 [facility] ([place]) Comment on above: Performed By: #### G FR, LIPID, HFP, A1C, IBC, TSH, CBC, ANEU, FT4, FERR, ADIFF, CMP, FE, VIDH, FT3 #### [address] [address] #### FOL, B12 #### [address] [address] Chloride [Moles/Vol] 101 mmol/L Normal 98-107 [facility] ([place]) Comment on above: Performed By: #### G FR, LIPID, HFP, A1C, IBC, TSH, CBC, ANEU, FT4, FERR, ADIFF, CMP, FE, VIDH, FT3 #### [address] [address] #### FOL, B12 #### [address] [address] CO2 [Moles/Vol] 27 mmol/L Normal 22-29 [facility] ([place]) Comment on above: Performed By: #### G FR, LIPID, HFP, A1C, IBC, TSH, CBC, ANEU, FT4, FERR, ADIFF, CMP, FE, VIDH, FT3 #### [address] [address] #### FOL, B12 #### [address] [address] Creatinine [Mass/Vol] 0.94 mg/dL Normal 0.55-1.02 [facility] ([place]) Comment on above: Performed By: #### G FR, LIPID, HFP, A1C, IBC, TSH, CBC, ANEU, FT4, FERR, ADIFF, CMP, FE, VIDH, FT3 #### [address] [address] #### FOL, B12 #### [address] [address] Electrolyte Balance 13.0 mEq/L Normal 4.0-15.0 [facility] ([place]) Comment on above: Performed By: #### G FR, LIPID, HFP, A1C, IBC, TSH, CBC, ANEU, FT4, FERR, ADIFF, CMP, FE, VIDH, FT3 #### [address] [address] #### FOL, B12 #### [address] [address] Glucose [Mass/Vol] 92 mg/dL Normal 70-105 [facility] ([place]) Comment on above: Performed By: #### G FR, LIPID, HFP, A1C, IBC, TSH, CBC, ANEU, FT4, FERR, ADIFF, CMP, FE, VIDH, FT3 #### [address] [address] #### FOL, B12 #### [address] [address] Potassium [Moles/Vol] 4.2 mmol/L Normal 3.5-5.1 [facility] ([place]) Comment on above: Performed By: #### G FR, LIPID, HFP, A1C, IBC, TSH, CBC, ANEU, FT4, FERR, ADIFF, CMP, FE, VIDH, FT3 #### [address] [address] #### FOL, B12 #### [address] [address] Sodium [Moles/Vol] 141 mmol/L Normal 136-145 [facility] ([place]) Comment on above: Performed By: #### G FR, LIPID, HFP, A1C, IBC, TSH, CBC, ANEU, FT4, FERR, ADIFF, CMP, FE, VIDH, FT3 #### [address] [address] #### FOL, B12 #### [address] [address] Urea nitrogen [Mass/Vol] 16 mg/dL Normal 7-18 [facility] ([place]) Comment on above: Performed By: #### G FR, LIPID, HFP, A1C, IBC, TSH, CBC, ANEU, FT4, FERR, ADIFF, CMP, FE, VIDH, FT3 #### [address] [address] #### FOL, B12 #### [address] [address] FEon 10-15-2023 Iron [Mass/Vol] 141 ug/dL Normal 50-170 [facility] ([place]) Comment on above: Performed By: #### G FR, LIPID, HFP, A1C, IBC, TSH, CBC, ANEU, FT4, FERR, ADIFF, CMP, FE, VIDH, FT3 #### [address] [address] #### FOL, B12 #### [address] [address] Heidi 10-15-2023 Ferritin [Mass/Vol] 60.0 ng/mL Normal 8.0-252.0 [facility] ([place]) Comment on above: Performed By: #### G FR, LIPID, HFP, A1C, IBC, TSH, CBC, ANEU, FT4, FERR, ADIFF, CMP, FE, VIDH, FT3 #### [address] [address] #### FOL, B12 #### [address] [address] FT3on 10-15-2023 Free T3 [Mass/Vol] 3.26 pg/mL Normal 2.30-4.00 [facility] ([place]) Comment on above: Performed By: #### G FR, LIPID, HFP, A1C, IBC, TSH, CBC, ANEU, FT4, FERR, ADIFF, CMP, FE, VIDH, FT3 #### [address] [address] #### FOL, B12 #### [address] [address] FT4on 10-15-2023 Free T4 [Mass/Vol] 1.15 ng/dL Normal 0.76-1.46 [facility] ([place]) Comment on above: Performed By: #### G FR, LIPID, HFP, A1C, IBC, TSH, CBC, ANEU, FT4, FERR, ADIFF, CMP, FE, VIDH, FT3 #### [address] [address] #### FOL, B12 #### [address] [address] HFPon 10-15-2023 Bili Indirect 0.4 mg/dL Normal [facility] ([place]) Comment on above: Performed By: #### G FR, LIPID, HFP, A1C, IBC, TSH, CBC, ANEU, FT4, FERR, ADIFF, CMP, FE, VIDH, FT3 #### [address] [address] #### FOL, B12 #### [address] [address] Albumin Level 4.0 G/dL Normal 3.5-5.0 [facility] ([place]) Comment on above: Performed By: #### G FR, LIPID, HFP, A1C, IBC, TSH, CBC, ANEU, FT4, FERR, ADIFF, CMP, FE, VIDH, FT3 #### [address] [address] #### FOL, B12 #### [address] [address] Albumin/Globulin [Mass ratio] 1.1 {ratio} Normal 1.1-2.5 [facility] ([place]) Comment on above: Performed By: #### G FR, LIPID, HFP, A1C, IBC, TSH, CBC, ANEU, FT4, FERR, ADIFF, CMP, FE, VIDH, FT3 #### [address] [address] #### FOL, B12 #### [address] [address] ALP [Catalytic activity/Vol] 91 U/L Normal 40-135 [facility] ([place]) Comment on above: Performed By: #### G FR, LIPID, HFP, A1C, IBC, TSH, CBC, ANEU, FT4, FERR, ADIFF, CMP, FE, VIDH, FT3 #### [address] [address] #### FOL, B12 #### [address] [address] ALT [Catalytic activity/Vol] 25 U/L Normal 14-59 [facility] ([place]) Comment on above: Performed By: #### G FR, LIPID, HFP, A1C, IBC, TSH, CBC, ANEU, FT4, FERR, ADIFF, CMP, FE, VIDH, FT3 #### [address] [address] #### FOL, B12 #### [address] [address] AST [Catalytic activity/Vol] 15 U/L Normal 10-40 [facility] ([place]) Comment on above: Performed By: #### G FR, LIPID, HFP, A1C, IBC, TSH, CBC, ANEU, FT4, FERR, ADIFF, CMP, FE, VIDH, FT3 #### [address] [address] #### FOL, B12 #### [place] [id number] Bili Direct 0.2 mg/dL Normal 0.0-0.2 [facility] ([place]) Comment on above: Result Comment: Use of this assay is not recommended for patients undergoing treatment with eltrombopag due to the potential for falsely elevated results. Performed By: #### G FR, LIPID, HFP, A1C, IBC, TSH, CBC, ANEU, FT4, FERR, ADIFF, CMP, FE, VIDH, FT3 #### [address] [address] #### FOL, B12 #### [place] [address] Bili Total 0.6 mg/dL Normal 0.2-1.0 [facility] ([place]) Comment on above: Result Comment: Use of this assay is not recommended for patients undergoing treatment with eltrombopag due to the potential for falsely elevated results. Performed By: #### G FR, LIPID, HFP, A1C, IBC, TSH, CBC, ANEU, FT4, FERR, ADIFF, CMP, FE, VIDH, FT3 #### [address] [address] #### FOL, B12 #### [address] [address] Globulin 3.7 G/dL Normal [facility] ([place]) Comment on above: Performed By: #### G FR, LIPID, HFP, A1C, IBC, TSH, CBC, ANEU, FT4, FERR, ADIFF, CMP, FE, VIDH, FT3 #### [address] [address] #### FOL, B12 #### [place] [address] Total Protein 7.7 G/dL Normal 6.4-8.2 [facility] ([place]) Comment on above: Performed By: #### G FR, LIPID, HFP, A1C, IBC, TSH, CBC, ANEU, FT4, FERR, ADIFF, CMP, FE, VIDH, FT3 #### [address] [address] #### FOL, B12 #### [place] [address] IBCon 10-15-2023 TIBC 330 mcg/dL Normal 250-450 [facility] ([place]) Comment on above: Performed By: #### G FR, LIPID, HFP, A1C, IBC, TSH, CBC, ANEU, FT4, FERR, ADIFF, CMP, FE, VIDH, FT3 #### [address] [address] #### FOL, B12 #### [place] [id number] LABORATORYOrdered By: SYSTEM SYSTEM on 10-15-2023 25-hydroxyvitamin [...] 10-15-2023 Cholesterol [Mass/Vol] 172 mg/dL Normal 0-200 [facility] ([place]) Comment on above: Result Comment: Chol esterol Reference Interval: Less than 200 Desirable 200-239 Borderline high risk 240 and above High risk Performed By: #### G FR, LIPID, HFP, A1C, IBC, TSH, CBC, ANEU, FT4, FERR, ADIFF, CMP, FE, VIDH, FT3 #### [address] [address] #### FOL, B12 #### [address] [address] Cholesterol in HDL [Mass/Vol] 66 mg/dL High 40-60 [facility] ([place]) Comment on above: Performed By: #### G FR, LIPID, HFP, A1C, IBC, TSH, CBC, ANEU, FT4, FERR, ADIFF, CMP, FE, VIDH, FT3 #### [address] [address] #### FOL, B12 #### [address] [address] Cholesterol in LDL [Mass/Vol] 80 mg/dL Normal 0-130 [facility] ([place]) Comment on above: Performed By: #### G FR, LIPID, HFP, A1C, IBC, TSH, CBC, ANEU, FT4, FERR, ADIFF, CMP, FE, VIDH, FT3 #### [address] [address] #### FOL, B12 #### [address] [address] Triglyceride [Mass/Vol] 132 mg/dL Normal 0-150 [facility] ([place]) Comment on above: Result Comment: Trig lyceride Reference Interval: Less than 150 Normal 150-199 Borderline high risk 200-499 High risk 500 or higher Very high risk Performed By: #### G FR, LIPID, HFP, A1C, IBC, TSH, CBC, ANEU, FT4, FERR, ADIFF, CMP, FE, VIDH, FT3 #### [address] [address] #### FOL, B12 #### [address] [address] Laboratory - Chemistry and C hemistry - [...] 10-15-2023 TSH Qn 1.13 m[IU]/L Normal 0.36-3.74 [facility] ([place]) Comment on above: Performed By: #### G FR, LIPID, HFP, A1C, IBC, TSH, CBC, ANEU, FT4, FERR, ADIFF, CMP, FE, VIDH, FT3 #### [address] [address] #### FOL, B12 #### [place] [address] UDRUGon 10-15-2023 Amphetamine (u) Negative Normal Negative [facility] ([place]) Comment on above: Performed By: #### G FR, LIPID, HFP, A1C, IBC, TSH, CBC, ANEU, FT4, FERR, ADIFF, CMP, FE, VIDH, FT3 #### [address] [address] #### FOL, B12 #### [place] [address] Barbiturate (u) Negative Normal Negative [facility] ([place]) Comment on above: Performed By: #### G FR, LIPID, HFP, A1C, IBC, TSH, CBC, ANEU, FT4, FERR, ADIFF, CMP, FE, VIDH, FT3 #### [address] [address] #### FOL, B12 #### [place] [address] Benzodiazepine (u) Negative Normal Negative [facility] ([place]) Comment on above: Performed By: #### G FR, LIPID, HFP, A1C, IBC, TSH, CBC, ANEU, FT4, FERR, ADIFF, CMP, FE, VIDH, FT3 #### [address] [address] #### FOL, B12 #### [place] [address] Cannabinoid (u) Negative Normal Negative [facility] ([place]) Comment on above: Performed By: #### G FR, LIPID, HFP, A1C, IBC, TSH, CBC, ANEU, FT4, FERR, ADIFF, CMP, FE, VIDH, FT3 #### [address] [address] #### FOL, B12 #### [place] [address] Cocaine Ql (U) Negative Normal Negative [facility] ([place]) Comment on above: Performed By: #### G FR, LIPID, HFP, A1C, IBC, TSH, CBC, ANEU, FT4, FERR, ADIFF, CMP, FE, VIDH, FT3 #### [address] [address] #### FOL, B12 #### [place] [address] Methadone Ql (U) Negative Normal Negative [facility] ([place]) Comment on above: Performed By: #### G FR, LIPID, HFP, A1C, IBC, TSH, CBC, ANEU, FT4, FERR, ADIFF, CMP, FE, VIDH, FT3 #### [address] [address] #### FOL, B12 #### [place] [address] Opiate (u) Negative Normal Negative [facility] ([place]) Comment on above: Performed By: #### G FR, LIPID, HFP, A1C, IBC, TSH, CBC, ANEU, FT4, FERR, ADIFF, CMP, FE, VIDH, FT3 #### [address] [address] #### FOL, B12 #### [place] [address] PCP (u) Negative Normal Negative [facility] ([place]) Comment on above: Performed By: #### G FR, LIPID, HFP, A1C, IBC, TSH, CBC, ANEU, FT4, FERR, ADIFF, CMP, FE, VIDH, FT3 #### [address] [address] #### FOL, B12 #### [place] [address] Urine Drugs screened: See Below Normal [facility] ([place]) Comment on above: Result Comment: This drug [...] FERR, ADIFF, CMP, FE, VIDH, FT3 #### [address] [address] #### FOL, B12 #### [place] [address] VIDHon 10-15-2023 Vit. D 25-Hydroxy 12.2 ng/mL Normal [facility] ([place]) Comment on above: Result Comment: Inte rpretive Values Based on Total 25(OH) Vitamin D: Deficient <20 ng/mL Insufficient 20 - <30 ng/mL Sufficient 30-100 ng/mL Performed By: #### G FR, LIPID, HFP, A1C, IBC, TSH, CBC, ANEU, FT4, FERR, ADIFF, CMP, FE, VIDH, FT3 #### [address] [address] #### FOL, B12 #### [address] [address] .Auto Diffon 03-31-2023 Basophil, Absolute 0.0 10 3/mcL Normal 0.0-0.2 [facility] ([place]) Comment on above: Performed By: #### G FR, LIPID, HFP, A1C, IBC, TSH, CBC, ANEU, FT4, FERR, ADIFF, CMP, FE, VIDH, FT3 #### [address] [address] #### FOL, B12 #### [address] [address] Basophils/100 WBC (Bld) 0.1 % Normal 0.0-2.5 [facility] ([place]) Comment on above: Performed By: #### G FR, LIPID, HFP, A1C, IBC, TSH, CBC, ANEU, FT4, FERR, ADIFF, CMP, FE, VIDH, FT3 #### [address] [address] #### FOL, B12 #### [address] [address] Eosinophil, Absolute 0.0 10 3/mcL Normal 0.0-0.4 [facility] ([place]) Comment on above: Performed By: #### G FR, LIPID, HFP, A1C, IBC, TSH, CBC, ANEU, FT4, FERR, ADIFF, CMP, FE, VIDH, FT3 #### [address] [address] #### FOL, B12 #### [address] [address] Eosinophils/100 WBC (Bld) 0.0 % Normal 0.0-7.0 [facility] ([place]) Comment on above: Performed By: #### G FR, LIPID, HFP, A1C, IBC, TSH, CBC, ANEU, FT4, FERR, ADIFF, CMP, FE, VIDH, FT3 #### [address] [address] #### FOL, B12 #### [address] [address] Lymphocyte, Absolute 1.2 10 3/mcL Normal 0.8-3.9 [facility] ([place]) Comment on above: Performed By: #### G FR, LIPID, HFP, A1C, IBC, TSH, CBC, ANEU, FT4, FERR, ADIFF, CMP, FE, VIDH, FT3 #### [address] [address] #### FOL, B12 #### [address] [address] Lymphocytes/100 WBC (Bld) 11.4 % Normal 10.0-50.0 [facility] ([place]) Comment on above: Performed By: #### G FR, LIPID, HFP, A1C, IBC, TSH, CBC, ANEU, FT4, FERR, ADIFF, CMP, FE, VIDH, FT3 #### [address] [address] #### FOL, B12 #### [address] [address] Monocyte, Absolute 0.8 10 3/mcL Normal 0.2-1.0 [facility] ([place]) Comment on above: Performed By: #### G FR, LIPID, HFP, A1C, IBC, TSH, CBC, ANEU, FT4, FERR, ADIFF, CMP, FE, VIDH, FT3 #### [address] [address] #### FOL, B12 #### [address] [address] Monocytes/100 WBC (Bld) 7.6 % Normal 1.7-13.0 [facility] ([place]) Comment on above: Performed By: #### G FR, LIPID, HFP, A1C, IBC, TSH, CBC, ANEU, FT4, FERR, ADIFF, CMP, FE, VIDH, FT3 #### [address] [address] #### FOL, B12 #### [address] [address] Neutrophils/100 WBC (Bld) 80.9 % High 37.0-80.0 [facility] ([place]) Comment on above: Performed By: #### G FR, LIPID, HFP, A1C, IBC, TSH, CBC, ANEU, FT4, FERR, ADIFF, CMP, FE, VIDH, FT3 #### [address] [address] #### FOL, B12 #### [address] [address] .NEUABSon 03-31-2023 Neutrophil, Absolute 8.8 10 3/mcL High 2.9-6.2 [facility] ([place]) Comment on above: Performed By: #### G FR, LIPID, HFP, A1C, IBC, TSH, CBC, ANEU, FT4, FERR, ADIFF, CMP, FE, VIDH, FT3 #### [address] [address] #### FOL, B12 #### [address] [address] CBCon 03-31-2023 Erythrocyte distribution width (RBC) [Ratio] 13.9 % Normal 11.5-14.5 [facility] ([place]) Comment on above: Performed By: #### G FR, LIPID, HFP, A1C, IBC, TSH, CBC, ANEU, FT4, FERR, ADIFF, CMP, FE, VIDH, FT3 #### [address] [address] #### FOL, B12 #### [address] [address] Hematocrit (Bld) [Volume fraction] 33.1 % Low 37.0-47.0 [facility] ([place]) Comment on above: Performed By: #### G FR, LIPID, HFP, A1C, IBC, TSH, CBC, ANEU, FT4, FERR, ADIFF, CMP, FE, VIDH, FT3 #### [address] [address] #### FOL, B12 #### [address] [address] Hgb 11.5 G/dL Low 12.0-16.0 [facility] ([place]) Comment on above: Performed By: #### G FR, LIPID, HFP, A1C, IBC, TSH, CBC, ANEU, FT4, FERR, ADIFF, CMP, FE, VIDH, FT3 #### [address] [address] #### FOL, B12 #### [address] [address] MCH (RBC) [Entitic mass] 32.3 pg High 27.0-31.2 [facility] ([place]) Comment on above: Performed By: #### G FR, LIPID, HFP, A1C, IBC, TSH, CBC, ANEU, FT4, FERR, ADIFF, CMP, FE, VIDH, FT3 #### [address] [address] #### FOL, B12 #### [address] [address] MCHC 34.7 G/dL Normal 33.0-37.0 [facility] ([place]) Comment on above: Performed By: #### G FR, LIPID, HFP, A1C, IBC, TSH, CBC, ANEU, FT4, FERR, ADIFF, CMP, FE, VIDH, FT3 #### [address] [address] #### FOL, B12 #### [address] [address] MCV (RBC) [Entitic vol] 93.0 fL Normal 80.0-94.0 [facility] ([place]) Comment on above: Performed By: #### G FR, LIPID, HFP, A1C, IBC, TSH, CBC, ANEU, FT4, FERR, ADIFF, CMP, FE, VIDH, FT3 #### [address] [address] #### FOL, B12 #### [address] [address] Platelet 155 10 3/mcL Normal 130-400 [facility] ([place]) Comment on above: Performed By: #### G FR, LIPID, HFP, A1C, IBC, TSH, CBC, ANEU, FT4, FERR, ADIFF, CMP, FE, VIDH, FT3 #### [address] [address] #### FOL, B12 #### [address] [address] Platelet mean volume (Bld) [Entitic vol] 9.3 fL Normal 7.4-10.4 [facility] ([place]) Comment on above: Performed By: #### G FR, LIPID, HFP, A1C, IBC, TSH, CBC, ANEU, FT4, FERR, ADIFF, CMP, FE, VIDH, FT3 #### [address] [address] #### FOL, B12 #### [address] [address] RBC 3.55 10 6/mcL Low 4.20-5.40 [facility] ([place]) Comment on above: Performed By: #### G FR, LIPID, HFP, A1C, IBC, TSH, CBC, ANEU, FT4, FERR, ADIFF, CMP, FE, VIDH, FT3 #### [address] [address] #### FOL, B12 #### [address] [address] WBC 10.9 10 3/mcL High 4.6-10.8 [facility] ([place]) Comment on above: Performed By: #### G FR, LIPID, HFP, A1C, IBC, TSH, CBC, ANEU, FT4, FERR, ADIFF, CMP, FE, VIDH, FT3 #### [address] [address] #### FOL, B12 #### [place] [address] LABORATORYOrdered By: Billie Ibarra on 03-31-2023 Basophil, [...] Ab RPR Ql (S) Non-Reactive Normal Non-Reactive [facility] ([place]) Comment on above: Result Comment: The RPR [...] FERR, ADIFF, CMP, FE, VIDH, FT3 #### [address] [address] #### FOL, B12 #### [address] [address] .Auto Diffon 03-30-2023 Basophil, Absolute 0.0 10 3/mcL Normal 0.0-0.2 [facility] ([place]) Comment on above: Performed By: #### G FR, LIPID, HFP, A1C, IBC, TSH, CBC, ANEU, FT4, FERR, ADIFF, CMP, FE, VIDH, FT3 #### [address] [address] #### FOL, B12 #### [address] [address] Basophils/100 WBC (Bld) 0.1 % Normal 0.0-2.5 [facility] ([place]) Comment on above: Performed By: #### G FR, LIPID, HFP, A1C, IBC, TSH, CBC, ANEU, FT4, FERR, ADIFF, CMP, FE, VIDH, FT3 #### [address] [address] #### FOL, B12 #### [address] [address] Eosinophil, Absolute 0.0 10 3/mcL Normal 0.0-0.4 [facility] ([place]) Comment on above: Performed By: #### G FR, LIPID, HFP, A1C, IBC, TSH, CBC, ANEU, FT4, FERR, ADIFF, CMP, FE, VIDH, FT3 #### [address] [address] #### FOL, B12 #### [address] [address] Eosinophils/100 WBC (Bld) 0.2 % Normal 0.0-7.0 [facility] ([place]) Comment on above: Performed By: #### G FR, LIPID, HFP, A1C, IBC, TSH, CBC, ANEU, FT4, FERR, ADIFF, CMP, FE, VIDH, FT3 #### [address] [address] #### FOL, B12 #### [address] [address] Lymphocyte, Absolute 1.8 10 3/mcL Normal 0.8-3.9 [facility] ([place]) Comment on above: Performed By: #### G FR, LIPID, HFP, A1C, IBC, TSH, CBC, ANEU, FT4, FERR, ADIFF, CMP, FE, VIDH, FT3 #### [address] [address] #### FOL, B12 #### [address] [address] Lymphocytes/100 WBC (Bld) 16.8 % Normal 10.0-50.0 [facility] ([place]) Comment on above: Performed By: #### G FR, LIPID, HFP, A1C, IBC, TSH, CBC, ANEU, FT4, FERR, ADIFF, CMP, FE, VIDH, FT3 #### [address] [address] #### FOL, B12 #### [address] [address] Monocyte, Absolute 0.8 10 3/mcL Normal 0.2-1.0 [facility] ([place]) Comment on above: Performed By: #### G FR, LIPID, HFP, A1C, IBC, TSH, CBC, ANEU, FT4, FERR, ADIFF, CMP, FE, VIDH, FT3 #### [address] [address] #### FOL, B12 #### [address] [address] Monocytes/100 WBC (Bld) 7.2 % Normal 1.7-13.0 [facility] ([place]) Comment on above: Performed By: #### G FR, LIPID, HFP, A1C, IBC, TSH, CBC, ANEU, FT4, FERR, ADIFF, CMP, FE, VIDH, FT3 #### [address] [address] #### FOL, B12 #### [address] [address] Neutrophils/100 WBC (Bld) 75.7 % Normal 37.0-80.0 [facility] ([place]) Comment on above: Performed By: #### G FR, LIPID, HFP, A1C, IBC, TSH, CBC, ANEU, FT4, FERR, ADIFF, CMP, FE, VIDH, FT3 #### [address] [address] #### FOL, B12 #### [address] [address] .NEUABSon 03-30-2023 Neutrophil, Absolute 8.2 10 3/mcL High 2.9-6.2 [facility] ([place]) Comment on above: Performed By: #### G FR, LIPID, HFP, A1C, IBC, TSH, CBC, ANEU, FT4, FERR, ADIFF, CMP, FE, VIDH, FT3 #### [address] [address] #### FOL, B12 #### [address] [address] CBCon 03-30-2023 Erythrocyte distribution width (RBC) [Ratio] 13.8 % Normal 11.5-14.5 [facility] ([place]) Comment on above: Performed By: #### G FR, LIPID, HFP, A1C, IBC, TSH, CBC, ANEU, FT4, FERR, ADIFF, CMP, FE, VIDH, FT3 #### [address] [address] #### FOL, B12 #### [address] [address] Hematocrit (Bld) [Volume fraction] 37.2 % Normal 37.0-47.0 [facility] ([place]) Comment on above: Performed By: #### G FR, LIPID, HFP, A1C, IBC, TSH, CBC, ANEU, FT4, FERR, ADIFF, CMP, FE, VIDH, FT3 #### [address] [address] #### FOL, B12 #### [address] [address] Hgb 12.9 G/dL Normal 12.0-16.0 [facility] ([place]) Comment on above: Performed By: #### G FR, LIPID, HFP, A1C, IBC, TSH, CBC, ANEU, FT4, FERR, ADIFF, CMP, FE, VIDH, FT3 #### [address] [address] #### FOL, B12 #### [address] [address] MCH (RBC) [Entitic mass] 32.2 pg High 27.0-31.2 [facility] ([place]) Comment on above: Performed By: #### G FR, LIPID, HFP, A1C, IBC, TSH, CBC, ANEU, FT4, FERR, ADIFF, CMP, FE, VIDH, FT3 #### [address] [address] #### FOL, B12 #### [address] [address] MCHC 34.7 G/dL Normal 33.0-37.0 [facility] ([place]) Comment on above: Performed By: #### G FR, LIPID, HFP, A1C, IBC, TSH, CBC, ANEU, FT4, FERR, ADIFF, CMP, FE, VIDH, FT3 #### [address] [address] #### FOL, B12 #### [place] [address] MCV (RBC) [Entitic vol] 92.8 fL Normal 80.0-94.0 [facility] ([place]) Comment on above: Performed By: #### G FR, LIPID, HFP, A1C, IBC, TSH, CBC, ANEU, FT4, FERR, ADIFF, CMP, FE, VIDH, FT3 #### [place] [address] #### FOL, B12 #### [place] [address] Platelet 169 10 3/mcL Normal 130-400 [facility] ([place]) Comment on above: Performed By: #### G FR, LIPID, HFP, A1C, IBC, TSH, CBC, ANEU, FT4, FERR, ADIFF, CMP, FE, VIDH, FT3 #### [place] [address] #### FOL, B12 #### [address] [address] Platelet mean volume (Bld) [Entitic vol] 9.7 fL Normal 7.4-10.4 [facility] ([place]) Comment on above: Performed By: #### G FR, LIPID, HFP, A1C, IBC, TSH, CBC, ANEU, FT4, FERR, ADIFF, CMP, FE, VIDH, FT3 #### [place] [address] #### FOL, B12 #### [address] [address] RBC 4.01 10 6/mcL Low 4.20-5.40 [facility] ([place]) Comment on above: Performed By: #### G FR, LIPID, HFP, A1C, IBC, TSH, CBC, ANEU, FT4, FERR, ADIFF, CMP, FE, VIDH, FT3 #### [address] [address] #### FOL, B12 #### [place] [address] WBC 10.8 10 3/mcL Normal 4.6-10.8 [facility] ([place]) Comment on above: Performed By: #### G FR, LIPID, HFP, A1C, IBC, TSH, CBC, ANEU, FT4, FERR, ADIFF, CMP, FE, VIDH, FT3 #### [address] [address] #### FOL, B12 #### [place] [address] Gel ABOon 03-30-2023 ABO/Rh Interp Positive Invalid Interpretation Code [facility] ([place]) Comment on above: Performed By: #### G FR, LIPID, HFP, A1C, IBC, TSH, CBC, ANEU, FT4, FERR, ADIFF, CMP, FE, VIDH, FT3 #### [address] [address] #### FOL, B12 #### [place] [address] Gel ABSon 03-30-2023 Antibody Screen Gel Negative Normal [facility] ([place]) Comment on above: Performed By: #### G FR, LIPID, HFP, A1C, IBC, TSH, CBC, ANEU, FT4, FERR, ADIFF, CMP, FE, VIDH, FT3 #### [address] [address] #### FOL, B12 #### [place] [address] LABORATORYOrdered By: Lilia Espinoza on 03-30-2023 ABO/Rh [...] Group B Strep (PCR) Negative Normal Negative [facility] ([place]) Comment on above: Performed By: #### G BSPCR #### [address] [address] Group B Strep PCR Int Normal [facility] ([place]) Comment on above: Result Comment: Grou p [...] Below Performed By: #### G BSPCR #### [address] [address] RPRon 03-10-2023 Reagin Ab RPR Ql (S) Non-Reactive Normal Non-Reactive [facility] ([place]) Comment on above: Result Comment: The RPR [...] FERR, ADIFF, CMP, FE, VIDH, FT3 #### [address] [address] #### FOL, B12 #### [address] [address] .Auto Diffon 03-09-2023 Basophil, Absolute 0.0 10 3/mcL Normal 0.0-0.2 [facility] ([place]) Comment on above: Performed By: #### G FR, LIPID, HFP, A1C, IBC, TSH, CBC, ANEU, FT4, FERR, ADIFF, CMP, FE, VIDH, FT3 #### [address] [address] #### FOL, B12 #### [address] [address] Basophils/100 WBC (Bld) 0.2 % Normal 0.0-2.5 [facility] ([place]) Comment on above: Performed By: #### G FR, LIPID, HFP, A1C, IBC, TSH, CBC, ANEU, FT4, FERR, ADIFF, CMP, FE, VIDH, FT3 #### [address] [address] #### FOL, B12 #### [address] [address] Eosinophil, Absolute 0.0 10 3/mcL Normal 0.0-0.4 [facility] ([place]) Comment on above: Performed By: #### G FR, LIPID, HFP, A1C, IBC, TSH, CBC, ANEU, FT4, FERR, ADIFF, CMP, FE, VIDH, FT3 #### [address] [address] #### FOL, B12 #### [address] [address] Eosinophils/100 WBC (Bld) 0.3 % Normal 0.0-7.0 [facility] ([place]) Comment on above: Performed By: #### G FR, LIPID, HFP, A1C, IBC, TSH, CBC, ANEU, FT4, FERR, ADIFF, CMP, FE, VIDH, FT3 #### [address] [address] #### FOL, B12 #### [address] [address] Lymphocyte, Absolute 1.5 10 3/mcL Normal 0.8-3.9 [facility] ([place]) Comment on above: Performed By: #### G FR, LIPID, HFP, A1C, IBC, TSH, CBC, ANEU, FT4, FERR, ADIFF, CMP, FE, VIDH, FT3 #### [address] [address] #### FOL, B12 #### [address] [address] Lymphocytes/100 WBC (Bld) 15.8 % Normal 10.0-50.0 [facility] ([place]) Comment on above: Performed By: #### G FR, LIPID, HFP, A1C, IBC, TSH, CBC, ANEU, FT4, FERR, ADIFF, CMP, FE, VIDH, FT3 #### [address] [address] #### FOL, B12 #### [address] [address] Monocyte, Absolute 0.6 10 3/mcL Normal 0.2-1.0 [facility] ([place]) Comment on above: Performed By: #### G FR, LIPID, HFP, A1C, IBC, TSH, CBC, ANEU, FT4, FERR, ADIFF, CMP, FE, VIDH, FT3 #### [address] [address] #### FOL, B12 #### [address] [address] Monocytes/100 WBC (Bld) 6.6 % Normal 1.7-13.0 [facility] ([place]) Comment on above: Performed By: #### G FR, LIPID, HFP, A1C, IBC, TSH, CBC, ANEU, FT4, FERR, ADIFF, CMP, FE, VIDH, FT3 #### [address] [address] #### FOL, B12 #### [address] [address] Neutrophils/100 WBC (Bld) 77.1 % Normal 37.0-80.0 [facility] ([place]) Comment on above: Performed By: #### G FR, LIPID, HFP, A1C, IBC, TSH, CBC, ANEU, FT4, FERR, ADIFF, CMP, FE, VIDH, FT3 #### [address] [address] #### FOL, B12 #### [address] [address] .NEUABSon 03-09-2023 Neutrophil, Absolute 7.4 10 3/mcL High 2.9-6.2 [facility] ([place]) Comment on above: Performed By: #### G FR, LIPID, HFP, A1C, IBC, TSH, CBC, ANEU, FT4, FERR, ADIFF, CMP, FE, VIDH, FT3 #### [address] [address] #### FOL, B12 #### [address] [address] CBCon 03-09-2023 Erythrocyte distribution width (RBC) [Ratio] 13.9 % Normal 11.5-14.5 [facility] ([place]) Comment on above: Performed By: #### G FR, LIPID, HFP, A1C, IBC, TSH, CBC, ANEU, FT4, FERR, ADIFF, CMP, FE, VIDH, FT3 #### [address] [address] #### FOL, B12 #### [address] [address] Hematocrit (Bld) [Volume fraction] 36.3 % Low 37.0-47.0 [facility] ([place]) Comment on above: Performed By: #### G FR, LIPID, HFP, A1C, IBC, TSH, CBC, ANEU, FT4, FERR, ADIFF, CMP, FE, VIDH, FT3 #### [address] [address] #### FOL, B12 #### [address] [address] Hgb 12.6 G/dL Normal 12.0-16.0 [facility] ([place]) Comment on above: Performed By: #### G FR, LIPID, HFP, A1C, IBC, TSH, CBC, ANEU, FT4, FERR, ADIFF, CMP, FE, VIDH, FT3 #### [address] [address] #### FOL, B12 #### [address] [address] MCH (RBC) [Entitic mass] 32.4 pg High 27.0-31.2 [facility] ([place]) Comment on above: Performed By: #### G FR, LIPID, HFP, A1C, IBC, TSH, CBC, ANEU, FT4, FERR, ADIFF, CMP, FE, VIDH, FT3 #### [place] [address] #### FOL, B12 #### [place] [address] MCHC 34.7 G/dL Normal 33.0-37.0 [facility] ([place]) Comment on above: Performed By: #### G FR, LIPID, HFP, A1C, IBC, TSH, CBC, ANEU, FT4, FERR, ADIFF, CMP, FE, VIDH, FT3 #### [place] [address] #### FOL, B12 #### [address] [address] MCV (RBC) [Entitic vol] 93.3 fL Normal 80.0-94.0 [facility] ([place]) Comment on above: Performed By: #### G FR, LIPID, HFP, A1C, IBC, TSH, CBC, ANEU, FT4, FERR, ADIFF, CMP, FE, VIDH, FT3 #### [place] [address] #### FOL, B12 #### [address] [address] Platelet 171 10 3/mcL Normal 130-400 [facility] ([place]) Comment on above: Performed By: #### G FR, LIPID, HFP, A1C, IBC, TSH, CBC, ANEU, FT4, FERR, ADIFF, CMP, FE, VIDH, FT3 #### [place] [address] #### FOL, B12 #### [address] [address] Platelet mean volume (Bld) [Entitic vol] 8.5 fL Normal 7.4-10.4 [facility] ([place]) Comment on above: Performed By: #### G FR, LIPID, HFP, A1C, IBC, TSH, CBC, ANEU, FT4, FERR, ADIFF, CMP, FE, VIDH, FT3 #### [place] [address] #### FOL, B12 #### [address] [address] RBC 3.89 10 6/mcL Low 4.20-5.40 [facility] ([place]) Comment on above: Performed By: #### G FR, LIPID, HFP, A1C, IBC, TSH, CBC, ANEU, FT4, FERR, ADIFF, CMP, FE, VIDH, FT3 #### [place] [address] #### FOL, B12 #### [place] [address] WBC 9.7 10 3/mcL Normal 4.6-10.8 [facility] ([place]) Comment on above: Performed By: #### G FR, LIPID, HFP, A1C, IBC, TSH, CBC, ANEU, FT4, FERR, ADIFF, CMP, FE, VIDH, FT3 #### [place] [address] #### FOL, B12 #### [address] [address] LABORATORYOrdered By: Isabella Eng on 03-09-2023 Group [...] SS AMNIon 03-06-2023 Amnisure Negative Normal Negative [facility] ([place]) Comment on above: Performed By: #### G FR, LIPID, HFP, A1C, IBC, TSH, CBC, ANEU, FT4, FERR, ADIFF, CMP, FE, VIDH, FT3 #### [address] [address] #### FOL, B12 #### [address] [address] LABORATORYOrdered By: Lilia Espinoza on 03-06-2023 [id number] .placental Ql (Vag fld) Negative (03/06/23 5:57 [...] SS CNCOon 11-12-2022 CNCO Letter Text Normal [facility] Bacteria Ur Culton 3 Bacteria identified Cx Nom (U) CULTURE, URINE: <10,000 CFU/ml Normal Urogenital Den Normal [facility] Comment on above: Performed By: #### 6 30-4 #### [facility] CLIA [id number] [address] ED NOTEon 10-29-2022 ED NOTE HNO ID: [id number] Author: Martinez Crouch RN Service: ? Author Type: Registered Nurse Type: ED Notes Filed: 10/28/2022 10:37 PM Note Text: Bed: 26-ED Expected date: Expected time: Means of arrival: Comments: triage Normal [facility] ED PROV NOTEon 10-29-2022 ED PROV NOTE HNO ID: [id number] Author: Danitza Reis DO Service: Emergency Medicine [...] CHRISTINA M 10/29/22 0323 Normal [facility] ED PROV NOTE HNO ID: [id number] Author: Danitza Reis DO Service: Emergency Medicine [...] was dehydrated. She follows with OB at [facility] in [place]. complicated by hyperemesis gravidarum and bleeding in [...] (more content not included)... Normal [facility] EKGon 10-29-2022 Electrocardiogram Ventricular Rate : 129 BPM Atrial Rate : 129 BPM P-R Interval : 130 ms QRS Duration : 70 ms Q-T Interval : 300 ms QTC Calculation(Bazett) : 439 ms Calculated P Saco : 31 degrees Calculated R Saco : 66 degrees Calculated T Saco : -[address] & T WAVE ABNORMALITY, CONSIDER INFERIOR ISCHEMIA ST & T WAVE ABNORMALITY, CONSIDER ANTEROLATERAL ISCHEMIA ABNORMAL ECG WHEN COMPARED WITH ECG OF 31-MAY-2022 13:06, VENT. RATE HAS INCREASED BY 58 BPM T WAVE INVERSION NOW EVIDENT IN INFERIOR LEADS INVERTED T WAVES HAVE REPLACED NONSPECIFIC T WAVE ABNORMALITY IN ANTEROLATERAL LEADS Confirmed by DO REIS CHRISTINA ([id number]) on 10/29/2022 1:44:37 AM NAME : LUZ OLIVEIRA PID : [id number] : 2000 Gender : Female Race : [...] ANTEROLATERAL LEADS Confirmed by DO REIS CHRISTINA ([id number]) on 10/29/2022 1:44:37 AM Test Reason : Location : 4 : [facility] ED26 Overread By : DO REIS CHRISTINA Edited By : DO REIS CHRISTINA Referred By : , Acquired by : KASHIF JOHNSON Normal [facility] Urinalysis complete panel (U )on 10-29-2022 Bacteria LM.HPF (Urine sed) [#/Area] Few Abnormal None Seen [facility] Comment on above: Order Comment: Speci men Type: URINE SPECIMENOrdering Facility: [facility] Address: [address] [place] [address] Performed By: #### 2 4356-8 ####[facility] LABORATORYCLIA [id number] [place] [address] [place] Bilirubin Ql (U) Negative Normal Negative [facility] Comment on above: Order Comment: Speci men Type: URINE SPECIMENOrdering Facility: [facility] Address: [address] [place] [address] Performed By: #### 2 4356-8 ####[facility] LABORATORYCLIA [id number] [address] [place] Clarity (Unsp spec) Turbid Abnormal Clear [facility] Comment on above: Order Comment: Speci men Type: URINE SPECIMENOrdering Facility: [facility] Address: [address] [place] [address] Performed By: #### 2 4356-8 ####[facility] LABORATORYCLIA [id number] [address] [place] Color (U) Yellow Normal yellow [facility] Comment on above: Order Comment: Speci men Type: URINE SPECIMENOrdering Facility: [facility] Address: [address] [place] [address] Performed By: #### 2 4356-8 ####[facility] LABORATORYCLIA [id number] [address] [place] Epithelial cells LM.HPF (Urine sed) [#/Area] Few Normal [facility] Comment on above: Order Comment: Speci men Type: URINE SPECIMENOrdering Facility: [facility] Address: [address] [place] [address] Performed By: #### 2 4356-8 ####[facility] LABORATORYCLIA [id number] [address] [place] Glucose Test strip (U) [Mass/Vol] Negative Normal Trace, Negative [facility] Comment on above: Order Comment: Speci men Type: URINE SPECIMENOrdering Facility: [facility] Address: [address] [place] [address] Performed By: #### 2 4356-8 ####[facility] LABORATORYCLIA [id number] [address] STATES [facility] Hemoglobin Ql (U) 1+ Abnormal Negative, Trace [facility] Comment on above: Order Comment: Speci men Type: URINE SPECIMENOrdering Facility: [facility] Address: [address] [place] [address] Performed By: #### 2 4356-8 ####[facility] LABORATORYCLIA [id number] [address] Ketones Ql (U) 4+ Abnormal Negative, Trace [facility] Comment on above: Order Comment: Speci men Type: URINE SPECIMENOrdering Facility: [facility] Address: [address] [place] [address] Performed By: #### 2 4356-8 ####[facility] LABORATORYCLIA [id number] [address] [place] Leukocyte esterase Test strip Ql (U) 25 Misti/mL Normal Negative, 25 Misti/mL [facility] Comment on above: Order Comment: Speci men Type: URINE SPECIMENOrdering Facility: [facility] Address: [address] [place] [address] Performed By: #### 2 4356-8 ####[facility] LABORATORYCLIA [id number] [address] [place] Nitrite Ql (U) Negative Normal Negative [facility] Comment on above: Order Comment: Speci men Type: URINE SPECIMENOrdering Facility: [facility] Address: [address] [place] [address] Performed By: #### 2 4356-8 ####[facility] LABORATORYCLIA [id number] [address] [place] pH (U) 6.0 [pH] Normal 5.0-8.0 [facility] Comment on above: Order Comment: Speci men Type: URINE SPECIMENOrdering Facility: [facility] Address: [address] [place] [address] Performed By: #### 2 4356-8 ####[facility] LABORATORYCLIA [id number] [address] Protein (U) [Mass/Vol] 1+ Abnormal Trace, Negative [facility] Comment on above: Order Comment: Speci men Type: URINE SPECIMENOrdering Facility: [facility] Address: [address] [place] [address] Performed By: #### 2 4356-8 ####[facility] LABORATORYCLIA [id number] [address] RBC LM.HPF (Urine sed) [#/Area] 6-10 /HPF Abnormal 0-3 /HPF [facility] Comment on above: Order Comment: Speci men Type: URINE SPECIMENOrdering Facility: [facility] Address: [address] [place] [address] Performed By: #### 2 4356-8 ####[facility] LABORATORYCLIA [id number] [address] STATES [facility] Specific gravity (U) [Rel density] 1.029 Normal 1.005-1.030 [facility] Comment on above: Order Comment: Speci men Type: URINE SPECIMENOrdering Facility: [facility] Address: [address] [place] [address] Performed By: #### 2 4356-8 ####[facility] LABORATORYCLIA [id number] [address] Urobilinogen Ql (U) Normal Normal Negative [facility] Comment on above: Order Comment: Speci men Type: URINE SPECIMENOrdering Facility: [facility] Address: [address] [place] [address] Performed By: #### 2 4356-8 ####[facility] LABORATORYCLIA [id number] [address] [place] WBC LM.HPF (Urine sed) [#/Area] 0-5 /HPF Normal 0-5 /HPF [facility] Comment on above: Order Comment: Speci men Type: URINE SPECIMENOrdering Facility: [facility] Address: [address] [place] [address] Performed By: #### 2 4356-8 ####[facility] LABORATORYCLIA [id number] [place] [address] [place] Basic metabolic 2000 panelon 10-28-2022 Anion gap [Moles/Vol] 15 mmol/L Normal 9-18 [facility] Comment on above: Order Comment: Speci men Type: BLOOD SPECIMENOrdering Facility: [facility] Address: [address] [place] [address] Performed By: #### 2 4321-2, ####[facility] LABORATORYCLIA [id number] [place] [address] [place] Calcium [Mass/Vol] 10.1 mg/dL Normal 8.5-10.2 [facility] Comment on above: Order Comment: Speci men Type: BLOOD SPECIMENOrdering Facility: [facility] Address: [address] [place] [address] Performed By: #### 2 432-2, ####[facility] LABORATORYCLIA [id number] [place] [address] [place] Chloride [Moles/Vol] 102 mmol/L Normal 97-105 [facility] Comment on above: Order Comment: Speci men Type: BLOOD SPECIMENOrdering Facility: [facility] Address: [address] [place] [address] Performed By: #### 2 4321-2, ####[facility] LABORATORYCLIA [id number] [place] [address] [place] CO2 [Moles/Vol] 22 mmol/L Normal 22-30 [facility] Comment on above: Order Comment: Speci men Type: BLOOD SPECIMENOrdering Facility: [facility] Address: [address] [place] [address] Performed By: #### 2 4321-2, ####[facility] LABORATORYCLIA [id number] [place] [address] [place] [facility] Creatinine [Mass/Vol] 0.61 mg/dL Normal 0.58-0.96 [facility] Comment on above: Order Comment: Eliose lopez Type: BLOOD SPECIMENOrdering Facility: [facility] Address: [address] [place] [address] Performed By: #### 2 43210-12, ####[facility] EASTIA [id number] [place] [address] [facility] ESTIMATED GLOMERULAR FILTRATION RATE 129 mL/min/1.73m??? Normal >=60 [facility] Comment on above: Order Comment: Eloise lopez Type: BLOOD SPECIMENOrdering Facility: [facility] Address: [address] [place] [address] Result Comment: Tierra mated Glomerular Filtration Rate [...] reflect actual GFR. Performed By: #### 2 ####[facility] EASTIA [id number] [place] [address] [place] [facility] Glucose [Mass/Vol] 86 mg/dL Normal 74-99 [facility] Comment on above: Order Comment: Eloise lopez Type: BLOOD SPECIMENOrdering Facility: [facility] Address: [address] [place] [address] Result Comment: The [employer] Diabetes Association (ADA) provides guidance for cutoff [...] Standards of Medical Care in Diabetes 2016, British Diabetes Association. Diabetes Care. 2016.39(Suppl 1). Performed By: #### 2 4320-2, ####[facility] LABORATORYCLIA [id number] [place] [address] [place] Potassium [Moles/Vol] 3.2 mmol/L Low 3.7-5.1 [facility] Comment on above: Order Comment: Mariposai jessica Type: BLOOD SPECIMENOrdering Facility: [facility] Address: [address] [place] [address] Performed By: #### 2 4320-11, ####[facility] LABORATORYCLIA [id number] [address] STATES OF [facility] Sodium [Moles/Vol] 139 mmol/L Normal 136-144 [facility] Comment on above: Order Comment: Eloise lopez Type: BLOOD SPECIMENOrdering Facility: [facility] Address: [address] [place] [address] Performed By: #### 2 4320-11, ####[facility] LABORATORYCLIA [id number] [address] STATES [facility] Urea nitrogen [Mass/Vol] 5 mg/dL Low 7-21 [facility] Comment on above: Order Comment: Marip[place] men Type: BLOOD SPECIMENOrdering Facility: [facility] Address: [address] [address] Performed By: #### 2 4320-11, ####[facility] LABORATORYCLIA [id number] [address] [place] CBC W Auto Differential pane l (Bld)on 10-28-2022 Basophils (Bld) [#/Vol] 10*3/uL Normal <0.11 [facility] Comment on above: Order Comment: Marip[place] men Type: BLOOD SPECIMENOrdering Facility: [facility] Address: [address] [place] [address] Performed By: #### 5 7021-8 ####[facility]ORATORYCLIA [id number] [address] Basophils/100 WBC (Bld) 0.1 % Normal [facility] Comment on above: Order Comment: Speci men Type: BLOOD SPECIMENOrdering Facility: [facility] Address: [address] [place] [address] Performed By: #### 5 7021-8 ####[facility] LABORATORYCLIA [id number] [address] Differential cell count method Nom (Bld) Auto Normal [facility] Comment on above: Order Comment: Speci men Type: BLOOD SPECIMENOrdering Facility: [facility] Address: [address] [place] [address] Performed By: #### 5 7021-8 ####[facility] LABORATORYCLIA [id number] [address] [place] Eosinophils (Bld) [#/Vol] 10*3/uL Normal <0.46 [facility] Comment on above: Order Comment: Speci men Type: BLOOD SPECIMENOrdering Facility: [facility] Address: [address] [place] [address] Performed By: #### 5 7021-8 ####[facility] LABORATORYCLIA [id number] [address] Eosinophils/100 WBC (Bld) 0.1 % Normal [facility] Comment on above: Order Comment: Speci men Type: BLOOD SPECIMENOrdering Facility: [facility] Address: [address] [place] [address] Performed By: #### 5 7021-8 ####[facility] LABORATORYCLIA [id number] [address] Erythrocyte distribution width (RBC) [Ratio] 13.8 % Normal 11.5-15.0 [facility] Comment on above: Order Comment: Speci men Type: BLOOD SPECIMENOrdering Facility: [facility] Address: [address] [address] Performed By: #### 5 7021-8 ####[facility] LABORATORYCLIA [id number] [address] OF [facility] Hematocrit (Bld) [Volume fraction] 38.2 % Normal 36.0-46.0 [facility] Comment on above: Order Comment: Speci men Type: BLOOD SPECIMENOrdering Facility: [facility] Address: [address] [place] [address] Performed By: #### 5 7021-8 ####[facility] LABORATORYCLIA [id number] [address] [place] Hemoglobin (Bld) [Mass/Vol] 13.5 g/dL Normal 11.5-15.5 [facility] Comment on above: Order Comment: Speci men Type: BLOOD SPECIMENOrdering Facility: [facility] Address: [address] [place] [address] Performed By: #### 5 7021-8 ####[facility] LABORATORYCLIA [id number] [address] [place] Immature granulocytes (Bld) [#/Vol] 0.04 10*3/uL Normal <0.10 [facility] Comment on above: Order Comment: Speci men Type: BLOOD SPECIMENOrdering Facility: [facility] Address: [address] [place] [address] Performed By: #### 5 7021-8 ####[facility] LABORATORYCLIA [id number] [address] [place] Immature granulocytes/100 WBC (Bld) 0.5 % Normal [facility] Comment on above: Order Comment: Speci men Type: BLOOD SPECIMENOrdering Facility: [facility] Address: [address] [place] [address] Performed By: #### 5 7021-8 ####[facility] LABORATORYCLIA [id number] [address] [place] Lymphocytes (Bld) [#/Vol] 1.53 10*3/uL Normal 1.00-4.00 [facility] Comment on above: Order Comment: Speci men Type: BLOOD SPECIMENOrdering Facility: [facility] Address: [address] [place] [address] Performed By: #### 5 7021-8 ####[facility] LABORATORYCLIA [id number] [address] Lymphocytes/100 WBC (Bld) 18.8 % Normal [facility] Comment on above: Order Comment: Speci men Type: BLOOD SPECIMENOrdering Facility: [facility] Address: [address] [place] [address] Performed By: #### 5 7021-8 ####[facility] LABORATORYCLIA [id number] [address] STATES OF [facility] MCH (RBC) [Entitic mass] 31.6 pg Normal 26.0-34.0 [facility] Comment on above: Order Comment: Speci men Type: BLOOD SPECIMENOrdering Facility: [facility] Address: [address] [place] [address] Performed By: #### 5 7021-8 ####[facility] LABORATORYCLIA [id number] [address] STATES [facility] MCHC (RBC) [Mass/Vol] 35.3 g/dL Normal 30.5-36.0 [facility] Comment on above: Order Comment: Speci men Type: BLOOD SPECIMENOrdering Facility: [facility] Address: [address] [place] [address] Performed By: #### 5 7021-8 ####[facility] LABORATORYCLIA [id number] [address] [place] MCV (RBC) [Entitic vol] 89.5 fL Normal 80.0-100.0 [facility] Comment on above: Order Comment: Speci men Type: BLOOD SPECIMENOrdering Facility: [facility] Address: [address] [place] [address] Performed By: #### 5 7021-8 ####[facility] LABORATORYCLIA [id number] [address] [place] Monocytes (Bld) [#/Vol] 0.51 10*3/uL Normal <0.87 [facility] Comment on above: Order Comment: Speci men Type: BLOOD SPECIMENOrdering Facility: [facility] Address: [address] [address] Performed By: #### 5 7021-8 ####[facility] LABORATORYCLIA [id number] [address] Monocytes/100 WBC (Bld) 6.3 % Normal [facility] Comment on above: Order Comment: Speci men Type: BLOOD SPECIMENOrdering Facility: [facility] Address: [address] [place] [address] Performed By: #### 5 7021-8 ####[facility] LABORATORYCLIA [id number] [address] [place] Neutrophils (Bld) [#/Vol] 6.06 10*3/uL Normal 1.45-7.50 [facility] Comment on above: Order Comment: Speci men Type: BLOOD SPECIMENOrdering Facility: [facility] Address: [address] [place] [address] Performed By: #### 5 7021-8 ####[facility]ORATORYCLIA [id number] [address] Neutrophils/100 WBC (Bld) 74.2 % Normal [facility] Comment on above: Order Comment: Speci men Type: BLOOD SPECIMENOrdering Facility: [facility] Address: [address] [place] [address] Performed By: #### 5 7021-8 ####[facility] LABORATORYCLIA [id number] [address] [place] Nucleated RBC (Bld) [#/Vol] 10*3/uL Normal <0.01 [facility] Comment on above: Order Comment: Speci men Type: BLOOD SPECIMENOrdering Facility: [facility] Address: [address] [place], [place] [address] Performed By: #### 5 7021-8 ####[facility] LABORATORYCLIA [id number] [address] [place] Nucleated RBC/100 WBC (Bld) [Ratio] 0.0 /100 WBC Normal [facility] Comment on above: Order Comment: Speci men Type: BLOOD SPECIMENOrdering Facility: [facility] Address: [address] [place] [address] Performed By: #### 5 7021-8 ####[facility] LABORATORYCLIA [id number] [address] [place] Platelet mean volume (Bld) [Entitic vol] 10.2 fL Normal 9.0-12.7 [facility] Comment on above: Order Comment: Speci men Type: BLOOD SPECIMENOrdering Facility: [facility] Address: [address] [place] [address] Performed By: #### 5 7021-8 ####[facility] LABORATORYCLIA [id number] [address] [address] [place] Platelets (Bld) [#/Vol] 191 10*3/uL Normal 150-400 [facility] Comment on above: Order Comment: Speci men Type: BLOOD SPECIMENOrdering Facility: [facility] Address: [address] [place] [address] Performed By: #### 5 7021-8 ####[facility] LABORATORYCLIA [id number] [place] [address] [place] RBC (Bld) [#/Vol] 4.27 10*6/uL Normal 3.90-5.20 [facility] Comment on above: Order Comment: Speci men Type: BLOOD SPECIMENOrdering Facility: [facility] Address: [address] [place] [address] Performed By: #### 5 7021-8 ####[facility] LABORATORYCLIA [id number] [address] [place] WBC (Bld) [#/Vol] 8.16 10*3/uL Normal 3.70-11.00 [facility] Comment on above: Order Comment: Speci men Type: BLOOD SPECIMENOrdering Facility: [facility] Address: [address] [place] [address] Performed By: #### 5 7021-8 ####[facility] LABORATORYCLIA [id number] [place] [address] [place] ED Triage Noteon 10-28-2022 ED Triage Note HNO ID: [id number] Author: Dax Stevenson APRN.CNP Service: Emergency Medicine [...] CBC CMP EKG Urinalysis SIGNATURE: Dax Stevenson APRN.RIDING SILKS CUSTODIAN Normal [facility] Magnesium SerPl-mCncon 10-28 Magnesium [Mass/Vol] 1.8 mg/dL Normal 1.7-2.3 [facility] Comment on above: Order Comment: Speci men Type: BLOOD SPECIMENOrdering Facility: [facility] Address: [facility] [facility] [place] [address] Performed By: #### 2 4321-2, 14379-1 ####[facility] LABORATORYCLIA [id number] [address] [place] URINE OB DIP B/Oon 3 Glucose Ql (U) Negative Neg mg/dL [facility] Protein.monoclonal (U) [Mass/Vol] TRACE Abnormal Neg mg/dL [facility] CNCOon 08-21-2022 CNCO Letter Text Normal [facility] Bacteria Ur Culton 2 Bacteria identified Cx Nom (U) ORGANISM ID: 1 50,000-<100,000 CFU/ml Normal urogenital den Normal [facility] Comment on above: Performed By: #### 7 3752-8, 28738-1, 34683-6 #### [facility] CLIA [id number] [facility] [place] C. trachomatis+N. gonorrhoea e DNA CHICHO+probe Ql (Unsp spec)on 08-19-2022 C. trachomatis DNA CHICHO+probe Ql (Unsp spec) Negative Normal Negative for Chlamydia trachomatis by amplificaton [facility] Comment on above: Order Comment: Speci men Type: SWAB [facility] Address: [address] [place] [address] Performed By: #### 3 6902-5 #### [facility] CLIA [id number] [address] [place] [address] [place] N. gonorrhoeae DNA CHICHO+probe Ql (Unsp spec) Negative Normal Negative for Neisseria gonorrhoeae by amplification [facility] Comment on above: Order Comment: Speci men Type: SWAB [facility] Address: [address] [place] [address] Performed By: #### 3 6902-5 #### [facility] CLIA [id number] [address] [place] [address] [place] CBC panel Auto (Bld)on 08-19 Erythrocyte distribution width (RBC) [Ratio] 12.4 % Normal 11.5-15.0 [facility] Comment on above: Order Comment: Speci men Type: BLOOD SPECIMEN [facility] Address: [address] [place] [address] Performed By: #### 7 3752-8, 48291-8, 85688-8 #### [facility] CLIA [id number] [address] [place] [address] [place] Hematocrit (Bld) [Volume fraction] 40.5 % Normal 36.0-46.0 [facility] Comment on above: Order Comment: Speci men Type: BLOOD SPECIMEN [facility] Address: [address] Performed By: #### 7 3752-8, 03592-7, 67616-5 #### [facility] CLIA [id number] [address] [place] [address] [place] Hemoglobin (Bld) [Mass/Vol] 13.6 g/dL Normal 11.5-15.5 [facility] Comment on above: Order Comment: Speci men Type: BLOOD SPECIMEN [facility] Address: [address] Performed By: #### 7 3752-8, 45933-0, 00993-6 #### [facility] CLIA [id number] [address] [place] [address] [place] MCH (RBC) [Entitic mass] 30.8 pg Normal 26.0-34.0 [facility] Comment on above: Order Comment: Speci men Type: BLOOD SPECIMEN [facility] Address: [address] [place] [address] Performed By: #### 7 3752-8, 03654-0, 25151-2 #### [facility] CLIA [id number] [address] [place] [address] [place] MCHC (RBC) [Mass/Vol] 33.6 g/dL Normal 30.5-36.0 [facility] Comment on above: Order Comment: Speci men Type: BLOOD SPECIMEN [facility] Address: [address] Performed By: #### 7 3752-8, 85499-0, 53472-8 #### [facility] CLIA [id number] [address] [place] [address] [place] MCV (RBC) [Entitic vol] 91.8 fL Normal 80.0-100.0 [facility] Comment on above: Order Comment: Speci men Type: BLOOD SPECIMEN [facility] Address: [address] Performed By: #### 7 3752-8, 61509-8, 22529-5 #### [facility] CLIA [id number] [address] [place] [address] [place] Nucleated RBC (Bld) [#/Vol] 10*3/uL Normal <0.01 [facility] Comment on above: Order Comment: Speci men Type: BLOOD SPECIMEN [facility] Address: [address] Performed By: #### 7 3752-8, 51328-1, 47212-0 #### [facility] CLIA [id number] [address] [place] [address] [place] Platelet mean volume (Bld) [Entitic vol] 10.5 fL Normal 9.0-12.7 [facility] Comment on above: Order Comment: Speci men Type: BLOOD SPECIMEN [facility] Address: [address] Performed By: #### 7 3752-8, 82654-0, 10822-2 #### [facility] CLIA [id number] [address] [place] [address] [place] Platelets (Bld) [#/Vol] 247 10*3/uL Normal 150-400 [facility] Comment on above: Order Comment: Speci men Type: BLOOD SPECIMEN [facility] Address: [address] Performed By: #### 7 3752-8, 95977-8, 18305-7 #### [facility] CLIA [id number] [address] [place] [address] [place] RBC (Bld) [#/Vol] 4.41 10*6/uL Normal 3.90-5.20 [facility] Comment on above: Order Comment: Speci men Type: BLOOD SPECIMEN [facility] Address: [place] [place] [address] Performed By: #### 7 3752-8, 91531-4, 77898-2 #### [facility] CLIA [id number] [address] [place] [address] OF [facility] WBC (Bld) [#/Vol] 7.20 10*3/uL Normal 3.70-11.00 [facility] Comment on above: Order Comment: Speci men Type: BLOOD SPECIMEN [facility] Address: [place] [place] [address] Performed By: #### 7 3752-8, 16796-9, 07928-9 #### [facility] CLIA [id number] [address] [place] [address] [place] OF [facility] Erythrocyte distribution width (RBC) [Ratio] 12.4 % 11.5 - 15.0 % [facility] Hematocrit (Bld) [Volume fraction] 40.5 % 36.0 - 46.0 % [facility] Hemoglobin (Bld) [Mass/Vol] 13.6 g/dL 11.5 - 15.5 g/dL [facility] MCH (RBC) [Entitic mass] 30.8 pg 26.0 - 34.0 pg [facility] MCHC (RBC) [Mass/Vol] 33.6 g/dL 30.5 - 36.0 g/dL [facility] MCV (RBC) [Entitic vol] 91.8 fL 80.0 - 100.0 fL [facility] Nucleated RBC (Bld) [#/Vol] <0.01 k/uL [facility] Platelet mean volume (Bld) [Entitic vol] 10.5 fL 9.0 - 12.7 fL [facility] Platelets (Bld) [#/Vol] 247 10*3/uL 150 - 400 k/uL [facility] RBC (Bld) [#/Vol] 4.41 10*6/uL 3.90 - 5.2 0 m/uL [facility] WBC (Bld) [#/Vol] 7.20 10*3/uL 3.70 - 11. 00 k/uL [facility] HBV surface Ab IA Ql (S)on 1 10-19-2021 HBV surface Ag Ql (S) Negative Normal Negative [facility] Comment on above: Order Comment: Speci men Type: BLOOD SPECIMEN [facility] Address: [address] [place] [address] Performed By: #### 7 3752-8, 13756-8, 58561-9 #### [facility] CLIA [id number] [address] [place] [address] [place] HCV Ab Ser Qlon 08-19-2022 HCV Ab Ql (S) Negative Normal Negative [facility] Comment on above: Order Comment: Speci men Type: BLOOD SPECIMEN [facility] Address: [address] [place] [address] Result Comment: The result suggests no evidence of active infection with Hepatitis C virus. Should recent infection be suspected, repeat testing may be considered 4-6 weeks after this draw. Performed By: #### 7 3752-8, 82612-7, 74598-8 #### [facility] CLIA [id number] [address] [place] [address] [place] [facility] [place] HIV 1+2 Ab IA Qlon 2 HIV 1 and 2 Ab IA.rapid Nom Normal [facility] Comment on above: Order Comment: Speci men Type: BLOOD SPECIMEN [facility] Address: [address] [place] [address] Result Comment: Test not indicated. Performed By: #### 7 3752-8, 98057-8, 61891-1 #### [facility] CLIA [id number] [address] [place] [address] [place] HIV 1+2 Ab+HIV1 p24 Ag IA Ql Non-Reactive Normal Nonreactive [facility] Comment on above: Order Comment: Speci men Type: BLOOD SPECIMEN [facility] Address: [address] [place] [address] Performed By: #### 7 3752-8, 95602-4, 73597-6 #### [facility] CLIA [id number] [address] [place] [address] [place] HIVINT Normal [facility] Comment on above: Order Comment: Speci men Type: BLOOD SPECIMEN [facility] Address: [address] [place] [address] Result Comment: No e vidence of HIV-1 or HIV-2 infection. Should recent infection be suspected, repeat testing may be considered 2-3 weeks after this draw. [place] Rev. Code 3701.243(E): This information has been [...] or diagnoses. Performed By: #### 7 3752-8, 07346-1, 57812-5 #### [facility] CLIA [id number] [address] [place] [address] [place] No Panel Informationon 08-19 [facility] PAP FLUID CERVICAL SCREENING on 08-19-2022 CASE REPORT Normal [facility] Comment on above: Order Comment: Speci men Type: FLUID SPECIMEN [facility] Address: [address] [place] [address] Result Comment: Gyne cologic Cytology Report Case: [id number] Authorizing Provider: Braulio Hollingsworth MD Collected: 08/19/2022 02:46 PM Ordering Location: Obstetrics/Gynecology Received: 08/20/2022 12:38 PM First Screen: Shelby Umaña, [place], ASCP Rescreen: Wandy Fraser, [place], ASCP Specimen: Pap, Calendering Supervisor, Screening, CERVICAL SCREENING FLUID Performed By: #### L [id number] #### [facility] CLIA [id number] [address] [place] [address] [place] CLINICAL HISTORY ABNORMAL PAP[LGSIL i n 2020 in [place] Normal [facility] Comment on above: Order Comment: Speci men Type: FLUID SPECIMEN [facility] Address: [address] [place], [place] [address] Performed By: #### L [id number] #### [facility] CLIA [id number] [address] [place] [address] [place] CYTOLOGY INTERPRETATION PAP Normal [facility] Comment on above: Order Comment: Speci men Type: FLUID SPECIMEN [facility] Address: [address] [place] [address] Result Comment: Nega tive for Intraepithelial lesion or malignancy. Performed By: #### L [id number] #### [facility] CLIA [id number] [address] [place] [address] OF [facility] FINAL DIAGNOSIS Normal [facility] Comment on above: Order Comment: Speci men Type: FLUID SPECIMEN [facility] Address: [address] [place], [place] [address] Result Comment: A - CERVICAL SCREENING FLUID Satisfactory for interpretation, Excess blood Negative for Intraepithelial lesion or malignancy. Performed By: #### L [id number] #### [facility] CLIA [id number] [address] [place] [address] [place] FINAL PERFORMING LAB Normal [facility] Comment on above: Order Comment: Speci men Type: FLUID SPECIMEN [facility] Address: [address] [place], [place] [address] Result Comment: Tech nical component, library information technician screening performed at [facility], [facility] [place] [id number] CLIA# [id number] Diagnostic interpretation performed at [facility], [address] [place] [address] CLIA# [id number] Eye Clinic Manager: Adam Farah M.D. Performed By: #### L [id number] #### [facility] CLIA [id number] [address] [place] [address] [place] GROSS DESCRIPTION Normal [facility] Comment on above: Order Comment: Speci men Type: FLUID SPECIMEN [facility] Address: [address] [address] Result Comment: A. C ERVICAL SCREENING FLUID Glacial Acetic Acid added. Performed By: #### L [id number] #### [facility] CLIA [id number] [address] [place] [address] [place] HPV REQUESTED? Yes, Reflex HPV for ASCUS Normal [facility] Comment on above: Order Comment: Speci men Type: FLUID SPECIMEN [facility] Address: [address] [address] Performed By: #### L [id number] #### [facility] CLIA [id number] [address] [place] [address] [place] LMP 06/21/2022() Normal [facility] Comment on above: Order Comment: Speci men Type: FLUID SPECIMEN [facility] Address: [address] [place] [address] Performed By: #### L [id number] #### [facility] CLIA [id number] [address] [place] [address] [place] PAP DISCLAIMER COMMENT The Pap Smear is a screening test for cervical cancer. False negative results occur with all screening tests, emphasizing the need for rescreening at recommended intervals, and clinical correlation. Normal [facility] Comment on above: Order Comment: Speci men Type: FLUID SPECIMEN [facility] Address: [address] [place] [address] Performed By: #### L [id number] #### [facility] CLIA [id number] [address] [place] [address] [place] PAP BRICKLAYER COMMENT This specimen has been analyzed by the ThinPrep Imaging System, an automated imaging and review system, which assists the laboratory in evaluating cells on ThinPrep Pap tests. Following automated imaging, selected francis from every slide are reviewed by a library information technician. Normal [facility] Comment on above: Order Comment: Speci men Type: FLUID SPECIMEN [facility] Address: [address] [place] [address] Performed By: #### L [id number] #### [facility] CLIA [id number] [address] [place] [address] [place] RUBELLA IGG ABon 08-19-2022 RUBELLA IGG AB, QUAL Positive Normal Positive [facility] Comment on above: Order Comment: Eloise lopez Type: BLOOD SPECIMEN [facility] Address: [address] [place] [address] Result Comment: The result suggests recent or past exposure to Rubella virus or history of Rubella vaccination. Positive result may also be seen due to presence of passively-transferred antibodies. Please correlate with patient's history. Performed By: #### 7 3752-8, 06479-3, 97280-5 #### [facility] CLIA [id number] [address] [place] Reagin and Treponema pallidu m IgG and IgM [Interp]on 08-19-2022 SYPHILIS INTERPRETATION Cannot exclude recent Treponemal infection if specimen collected within 7-10 days after appearance of suspect lesions or 2-3 weeks after an exposure. Clinical correlation is required. Normal [facility] Comment on above: Order Comment: Speci men Type: BLOOD SPECIMEN [facility] Address: [address] [place], [place] [address] Performed By: #### 7 3752-8, 76409-5, 10757-2 #### [facility] CLIA [id number] [address] [place] [address] [place] T. pallidum IgG+IgM IA Ql (S) Non-Reactive Normal Nonreactive [facility] Comment on above: Order Comment: Speci men Type: BLOOD SPECIMEN [facility] Address: [address] [place] [address] Performed By: #### 7 3752-8, 80754-8, 12232-7 #### [facility] CLIA [id number] [address] [place] [address] [place] TSH BLDon 08-19-2022 TSH Qn 1.190 m[IU]/L 0.270 - 4.200 mIU/L [facility] TSH SerPl-aCncon 08-19-2022 TSH Qn 1.190 m[IU]/L Normal 0.270-4.200 [facility] Comment on above: Order Comment: Speci men Type: BLOOD SPECIMEN [facility] Address: [address] [place] [address] Result Comment: If t he patient is , TSH reference range varies by gestational period: First Trimester (weeks 9-12): 0.180-2.990 mIU/L Second Trimester: 0.110-3.980 mIU/L Third Trimester: 0.480-4.710 mIU/L Rafiq Winston et al. A Practical Approach for the Verifications and Determination of Site- and Trimester-Specific Reference Intervals for Thyroid Function tests in . Thyroid, 2019:29:3:412-420. William Bautista, et al. 2017 Guidelines of the [place] Thy[employer] for the Diagnosis and Management of Thyroid Disease during and the . Thyroid, 2017:27:3:315-389. Performed By: #### 3 016-3 #### [facility] CLIA [id number] [address] [place] [address] [place] TYPE + SCREEN PRENATALon ABO O [facility] HIstorical Ab Scr Status Negative [facility] Rh Nom (Bld) Positive [facility] Type and Screen Expiration 08/22/2022 23:59 [facility] ABO O Normal [facility] Comment on above: Order Comment: Speci men Type: BLOOD SPECIMEN [facility] Address: [address] [place] [address] Performed By: #### T SPN #### [facility] CLIA [id number] [address] HISTORICAL AB SCR STATUS Negative Normal [facility] Comment on above: Order Comment: Speci men Type: BLOOD SPECIMEN Order[facility]: [facility] Address: [address] [place] [address] Performed By: #### T SPN #### [facility] CLIA [id number] [address] Rh Nom (Bld) Positive Normal [facility] Comment on above: Order Comment: Speci men Type: BLOOD SPECIMEN [facility] Facility: [facility] Address: [address] [place] [address] Performed By: #### T SPN #### [facility] CLIA [id number] [address] TYPE AND SCREEN EXPIRATION 08/22/2022 23:59 Normal [facility] Comment on above: Order Comment: Speci men Type: BLOOD SPECIMEN [facility]: [facility] Address: [address] [place] [address] Performed By: #### T SPN #### [facility] CLIA [id number] [address] [place] [address] [place] URINE OB DIP B/Oon 2 Glucose Ql (U) Negative Neg mg/dL [facility] Protein.monoclonal (U) [Mass/Vol] Negative Neg mg/dL [facility] CONFIRM BLOOD TYPEon 022 ABO O Normal [facility] Comment on above: Order Comment: Speci men Type: BLOOD SPECIMEN [facility] Facility: [facility] Address: [address] [place] [address] Performed By: #### C ONABO #### [facility] CLIA [id number] [address] [place] Rh Nom (Bld) Positive Normal [facility] Comment on above: Order Comment: Speci men Type: BLOOD SPECIMEN Ordering Facility: [facility] Address: [address] [place] [address] Performed By: #### C ONABO #### [facility] [place] [id number] [address] ED Triage Noteon 08-14-2022 ED Triage Note HNO ID: [id number] Author: Kaushik Justice APRN.CNP Service: Emergency Medicine [...] a week. She was previously seen at [facility] where she states she had an [...] positive send OB triage SIGNATURE: Kaushik Justice APRN.RIDING SILKS CUSTODIAN Normal [facility] TYPE + SCREEN PRENATALon ABO O Normal [facility] Comment on above: Order Comment: Speci men Type: BLOOD SPECIMEN [facility]: [facility] Address: [place] [place] [address] Performed By: #### T SPN #### [facility] [id number] [address] HISTORICAL AB SCR STATUS Negative Normal [facility] Comment on above: Order Comment: Speci men Type: BLOOD SPECIMEN [facility] Facility: [facility] Address: [address] Performed By: #### T SPN #### [facility] CLIA [id number] [address] Rh Nom (Bld) Positive Normal [facility] Comment on above: Order Comment: Speci men Type: BLOOD SPECIMEN Ordering Facility: [facility] Address: [address] [place] [address] Performed By: #### T SPN #### [facility] BLOOD BANK CLIA [id number] TYPE AND SCREEN EXPIRATION 08/17/2022 23:59 Normal [facility] Comment on above: Order Comment: Speci men Type: BLOOD SPECIMEN Ordering Facility: [facility] Address: [address] [place] [address] Performed By: #### T SPN #### [facility] BLOOD [facility] CLIA [id number] [address] 08-10-2022 [facility] Telephone (OBGMEM) LUZ OLIVEIRA ([id number]) 2000 F Date Time Provider Department 08/10/22 [...] Status:Closed by NISA MURPHY on 11/11/22 Normal [facility] Absolute lymphocyte counton 08-09-2022 Lymphocytes Auto (Unsp spec) [#/Vol] 1.23 10*3/uL 0.83-4.51 [facility] Work Phone: Basophil percentageon 2021 Basophils/100 WBC (Bld) 0.2 % 0-1 [facility] Work Phone: Bilirubin [Mass/Vol] 0.50 mg/dL 0.20-1.00 [facility] Work Phone: Comment on above: For patients on eltr ombopag therapy, use of [employer]ension [employer] TBIL is not recommended. Chloride [Moles/Vol] 107 mmol/L 98-107 [facility] Work Phone: Eosinophils/100 WBC (Bld) 0.3 % 0-5 [facility] Work Phone: Glucose [Mass/Vol] 122 mg/dL 74-106 [facility] Work Phone: Comment on above: Fasting Glucose resu lt from 100 to 125 mg/dL suggests IMPAIRED HOMEOSTASIS per A.D.A. criteria. Neutrophils (Bld) [#/Vol] 4.2 10*3/uL 2.0-7.7 [facility] Work Phone: Neutrophils/100 WBC (Bld) 71.9 % 47-70 [facility] Work Phone: Potassium [Moles/Vol] 3.5 mmol/L 3.5-5.1 [facility] Work Phone: Protein [Mass/Vol] 7.3 g/dL 6.4-8.2 [facility] Work Phone: Sodium [Moles/Vol] 139 mmol/L 136-145 [facility] Work Phone: WBC (Bld) [#/Vol] 5.9 10*3/uL 4.4-11.0 [facility] Work Phone: Basophil percentage 0 SEEN /hpf 0-5 [facility] Work Phone: Beta hCG serum qualon 2021 Beta HCG ( test) Ql Negative [facility] Work Phone: Comment on above: TEST is *P OSITIVE* Bilirubin Test strip Ql (U)o n 08-09-2022 Bilirubin Ql (U) Negative Negative [facility] Work Phone: Blood erythrocytes count (nu mber/volume)on 08-09-2022 RBC (Bld) [#/Vol] 4.26 10*6/uL 4.2-5.4 [facility] Work Phone: Blood hemoglobin measurement (mass/volume)on 08-09-2022 Hemoglobin (Bld) [Mass/Vol] 13.4 g/dL 12.0-15.0 [facility] Work Phone: [phone] Blood lymphocytes/100 leukoc yteson 08-09-2022 Lymphocytes/100 WBC (Bld) 21.0 % 19-41 [facility] Work Phone: [phone] Blood monocytes/100 leukocyt eson 08-09-2022 Monocytes/100 WBC (Bld) 6.3 % 0-10 [facility] Work Phone: [phone] Blood platelet mean volumeon 08-09-2022 Platelet mean volume (Bld) [Entitic vol] 10.1 fL 6.2-12.0 [facility] Work Phone: [phone] Determination of erythrocyte mean corpuscular volume (MCV)on 08-09-2022 MCV (RBC) [Entitic vol] 91.8 fL 81-99 [facility] Work Phone: Hematocrit Auto (Bld) [Volum e fraction]on 08-09-2022 Hematocrit (Bld) [Volume fraction] 39.1 % 37-47 [facility] Work Phone: [phone] Ketones Test strip Ql (U)on 08-09-2022 Ketones Ql (U) Negative Negative [facility] Work Phone: [phone] Laboratory - Chemistry and C hemistry - challengeon 08-09-2022 ALP [Catalytic activity/Vol] 56 U/L 45-117 [facility] Work Phone: ALT [Catalytic activity/Vol] 67 U/L 13-56 [facility] Work Phone: [phone] CO2 [Moles/Vol] 25.0 mmol/L 21.0-32.0 [facility] Work Phone: Globulin (S) [Mass/Vol] 3.5 g/dL 2.2-4.2 [facility] Work Phone: [phone] Urea nitrogen/Creatinine [Mass ratio] 9.7 mg/mg 10-20 [facility] Work Phone: [phone] Laboratory - Hematology and Cell countson 08-09-2022 Erythrocyte distribution width (RBC) [Entitic vol] 42.5 fL 35.1-43.9 [facility] Work Phone: [phone] Erythrocyte distribution width (RBC) [Ratio] 12.8 % 11.6-14.6 [facility] Work Phone: [phone] Immature granulocytes/100 WBC (Bld) 0.300 % 0.0-0.9 [facility] Work Phone: [phone] Comment on above: IG% - Immature Granu locytes (promyelocytes, myelocytes and metamyelocytes) > 1% indicates that a LEFT SHIFT is Present. MCH (RBC) [Entitic mass] 31.5 pg 27.0-32.0 [facility] Work Phone: [phone] Nucleated RBC/100 WBC (Bld) [Ratio] 0 % 0-5 [facility] Work Phone: [phone] MCHC Auto (RBC) [Mass/Vol]on 08-09-2022 MCHC (RBC) [Mass/Vol] 34.3 g/dL 32-36 [facility] Work Phone: [phone] Mucus LM Ql (Urine sed)on Mucus Ql (Urine sed) 0 SEEN /hpf [facility] Work Phone: [phone] Nitrite Test strip Ql (U)on 08-09-2022 Nitrite Ql (U) Negative Negative [facility] Work Phone: [phone] Panel Informationon 08-09 Estimated Creatinine Clearance Calc 81.20 ml/min [facility] Work Phone: [phone] Estimated GFR (MDRD) Amer 111 mL/min >60 [facility] Work Phone: [phone] Comment on above: GFR Calc Estimated GFR (MDRD) Non-Af Amer 91 mL/min >60 [facility] Work Phone: Comment on above: Non- GFR Calc Platelets bldon 08-09-2022 Platelets (Bld) [#/Vol] 224 10*3/uL 150-450 [facility] Work Phone: Protein Test strip Ql (U)on 08-09-2022 Protein Ql (U) Negative Negative [facility] Work Phone: Serum or plasma albumin sabino urement (mass/volume)on 08-09-2022 Albumin [Mass/Vol] 3.8 g/dL 3.2-5.0 [facility] Work Phone: Serum or plasma albumin/glob ulin mass ratioon 08-09-2022 Albumin/Globulin [Mass ratio] 1.1 {ratio} 0.9-2.4 [facility] Work Phone: Serum or plasma calcium sabino urement (mass/volume)on 08-09-2022 Calcium [Mass/Vol] 9.2 mg/dL 8.5-10.1 [facility] Work Phone: Serum or plasma choriogonado tropin detectionon 08-09-2022 HCG ( [place]) [place] [address] mIU/mL <4 [facility] Work Phone: Comment on above: hCG levels with Gest ational AgeGestational Age hCG mIU/mL (IU/L)0.2 - 1 week 5 - 501-2 weeks 50 - 5002-3 weeks 100 - 67423-7 weeks 500 - 470880-5 weeks 1000 - 602526-7 weeks 49612 - 100,0006-8 weeks 86837 - 200,0002-3 months 65835 - 100,000 Serum or plasma creatinine m easurement (mass/volume)on 08-09-2022 Creatinine [Mass/Vol] 0.82 mg/dL 0.55-1.02 [facility] Work Phone: Comment on above: The validity of the calculated GFR & GFRAA in patients over 70 years has not been determined. Clinical correlation is essential. Serum or plasma urea nitroge n measurement (mass/volume)on 08-09-2022 Urea nitrogen [Mass/Vol] 8 mg/dL 7-18 [facility] Work Phone: Squamous epithelial cells de tection in urine sediment by light microscopyon 08-09-2022 Epithelial cells.squamous LM Ql (Urine sed) 0-5 SEEN /hpf 5-10 [facility] Work Phone: Thin prep Papanicolaou smear with manual screeningon 08-09-2022 Thin prep Papanicolaou smear with manual screening 38 U/L 15-37 [facility] Work Phone: [phone] Thin prep Papanicolaou smear with manual screening 7 5-15 [facility] Work Phone: Urine blood detectionon 07-13 RBC Ql (U) 25 /ul Negative [facility] Work Phone: RBC Ql (U) 0 SEEN /hpf 0-5 [facility] Work Phone: Urine clarityon 08-09-2022 Clarity (U) Clear Clear [facility] Work Phone: Urine color determinationon 08-09-2022 Color (U) Yellow Yellow [facility] Work Phone: Urine glucose detectionon Glucose Ql (U) Normal mg/dl Normal [facility] Work Phone: Urine leukocyte esterase det ection by dipstickon 08-09-2022 Leukocyte esterase Test strip Ql (U) 25 /ul Negative [facility] Work Phone: Urine pHon 08-09-2022 pH (U) 7.0 [pH] 5.0 - 8.0 [facility] Work Phone: Urine sediment bacteria coun t by microscopy (number/high power field)on 08-09-2022 Bacteria LM.HPF (Urine sed) [#/Area] 0 /[HPF] None Seen [facility] Work Phone: Urine specific gravity measu rementon 08-09-2022 Specific gravity (U) [Rel density] 1.010 1.002-1.030 [facility] Work Phone: Urobilinogen Auto test strip Ql (U)on 08-09-2022 Urobilinogen Ql (U) Normal mg/dl Normal [facility] Work Phone: CBCon 08-04-2022 Hematocrit (Bld) [...] vol] 9.9 fL 7.4 - 12.4 fL [facility] Comment on above: MPV is a calculated measurement using platelet volume ratio. Platelets (Bld) [#/Vol] 217 10*3/uL 140 - 440 10*3/uL [facility] RBC (Bld) [#/Vol] 4.27 10*6/uL 3.80 - 5.2 0 10*6/uL [facility] WBC (Bld) [#/Vol] 5.4 10*3/uL 3.6 - 10.7 10*3/uL [facility] Test Performed by [facility], [address] [place] [address]. [address] LAB [facility] HCG, QUANTITATIVE, on 08-04-2022 hCG Quant 3840 m[IU]/mL [facility] Comment on above: Females < 5 [...] or gestational trophoblastic disease. Test Performed by [facility], [address] [place] [address] LAB [facility] Hemogram 08-04-2022 Erythrocyte distribution width (RBC) [Ratio] 12.8 % Normal 11.5-14.5 [facility] Comment on above: Performed By: #### H IZAG QWNT5 #### [address] [place] [address] Hematocrit (Bld) [Volume fraction] 39.2 % Normal 35.0-47.0 [facility] Comment on above: Performed By: #### H LIONEL QWNT5 #### [address] [place] [address] Hemoglobin (Bld) [Mass/Vol] 13.4 g/dL Normal 11.7-16.0 [facility] Comment on above: Performed By: #### H EMOG QWNT5 #### [address] [place] [address] MCH (RBC) [Entitic mass] 31.4 pg Normal 26.0-34.0 [facility] Comment on above: Performed By: #### H EMOG, QWNT5 #### [address] [place] [address] MCHC 34.2 % Normal 32.0-36.0 [facility] Comment on above: Performed By: #### H EMOG, QWNT5 #### [address] [place] [address] MCV (RBC) [Entitic vol] 91.8 fL Normal 79.0-98.0 [facility] Comment on above: Performed By: #### H EMOSamuel, QWNT5 #### [facility] [address] [place] [address] Platelet mean volume (Bld) [Entitic vol] 9.9 fL Normal 7.4-12.4 [facility] Comment on above: Result Comment: MPV is a calculated measurement using platelet volume ratio. Performed By: #### H EMOG, QWNT5 #### [facility] [address] [place] [address] Platelets (Bld) [#/Vol] 217 10*3/uL Normal 140-440 [facility] Comment on above: Performed By: #### H EMOG, QWNT5 #### [facility] [address] [place] [address] RBC (Bld) [#/Vol] 4.27 10*6/uL Normal 3.80-5.20 [facility] Comment on above: Performed By: #### H EMOG, QWNT5 #### [facility] [address] [place] [address] WBC (Bld) [#/Vol] 5.4 10*3/uL Normal 3.6-10.7 [facility] Comment on above: Performed By: #### H EMOG, QWNT5 #### [facility] [address] [place] [address] GELon 08-04-2022 GEL ABO Group: O Rh, Gel: POS Antibody Screen Gel: NEG Normal [facility] Comment on above: Performed By: #### P NGL #### [facility] TYPE AND SCREENon 1 ABO Grouping O [facility] Work Phone: Rh Type Positive [facility] Work Phone: Test Performed by [facility], [address] , [place], [place] [id number] [place] [address] LAB [facility] Work Phone: US OB TRANSVAGINALon 2 022 Patient Name: LUZ OLIVEIRA Ultrasound ACCESSION EXAM DATE/TIME PROCEDURE ORDERING PROVIDER [id number] 08/04/2022 12:05 EDT [place] [id number] HARRISON Transvaginal CPT code 43057 Reason For Exam (US Transvaginal) 7 weeks [...] ALFRED Transcribed Date and Time: 08/04/2022 12:31 [facility] Silas Pickens DO - 08/04/2022 Patient Name: LUZ OLIVEIRA Ultrasound ACCESSION EXAM DATE/TIME PROCEDURE ORDERING PROVIDER [id number] 08/04/2022 12:05 EDT US MELANIA OCAMPO Transvaginal CPT code 38783 Reason For Exam (US Transvaginal) 7 weeks [...] TRANSVAGINALOrdered By : Silas Pickens on 08-04-2022 [facility] Work [facility]: US Transvaginalon 08-04-2022 US Transvaginal Patient Name: LUZ OLIVEIRA Ultrasound ACCESSION EXAM DATE/TIME PROCEDURE ORDERING PROVIDER [id number] 08/04/2022 12:05 EDT [place] [id number] -AUSTYNIRAI, ANIS Transvaginal CPT code 23195 Reason For Exam (US Transvaginal) 7 weeks [...] Transcribed Date and Time: 08/04/2022 12:31 Normal [facility] hCG Quantitativeon hCG Quantitative 3840 m[IU]/mL Normal [facility] Comment on above: Result Comment: Fema les [...] gestational trophoblastic disease. Performed By: #### H [facility], QWNT5 #### [facility] [address] [place] [address] CNCOon 07-20-2022 CNCO Letter Text Normal [facility] Eliecer 07-09-2022 [facility] Telephone ([employer]) LUZ OLIVEIRA ([id number]) 2000 F Date Time Provider Department 07/09/22 [...] (FLONASE) 50 mcg/actuation nasal spray Use 1 [place] in each nostril once daily. 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] 07/10/2014 Headache [R51] 07/10/2014 Unintentional weight loss [R63.4] 07/10/2014 Papanicolaou smear of cervix with low grade squ*05/21/2021 Letter Text Encounter Status:Closed by VERÓNICA ALEGRE on 07/09/22 Normal [facility] Absolute lymphocyte counton 06-29-2022 Lymphocytes Auto (Unsp spec) [#/Vol] 1.79 10*3/uL 0.83-4.51 [facility] Work Phone: Basophil percentageon 2021 Basophil percentage 0-5 SEEN /hpf 0-5 [facility] Work Phone: Basophils/100 WBC (Bld) 0.1 % 0-1 [facility] Work Phone: Chloride [Moles/Vol] 106 mmol/L 98-107 [facility]: Eosinophils/100 WBC (Bld) 0.2 % 0-5 [facility] Work Phone: Glucose [Mass/Vol] 98 mg/dL 74-106 [facility] Work Phone: Neutrophils (Bld) [#/Vol] 6.1 10*3/uL 2.0-7.7 [facility] Work Phone: Neutrophils/100 WBC (Bld) 72.2 % 47-70 [facility] Work Phone: Potassium [Moles/Vol] 3.9 mmol/L 3.5-5.1 [facility] Work Phone: Sodium [Moles/Vol] 142 mmol/L 136-145 [facility] Work Phone: WBC (Bld) [#/Vol] 8.5 10*3/uL 4.4-11.0 [facility] Work Phone: Beta hCG serum qualon 2021 Beta HCG ( test) Ql Negative [facility] Work Phone: Bilirubin Test strip Ql (U)o n 06-29-2022 Bilirubin Ql (U) Negative Negative [facility] Work Phone: Blood erythrocytes count (nu mber/volume)on 06-29-2022 RBC (Bld) [#/Vol] 4.44 10*6/uL 4.2-5.4 [facility] Work Phone: Blood hemoglobin measurement (mass/volume)on 06-29-2022 Hemoglobin (Bld) [Mass/Vol] 13.7 g/dL 12.0-15.0 [facility] Work Phone: Blood lymphocytes/100 leukoc yteson 06-29-2022 Lymphocytes/100 WBC (Bld) 21.2 % 19-41 [facility] Work Phone: Blood monocytes/100 leukocyt eson 06-29-2022 Monocytes/100 WBC (Bld) 5.8 % 0-10 [facility] Work Phone: [phone] Blood platelet mean volumeon 06-29-2022 Platelet mean volume (Bld) [Entitic vol] 9.9 fL 6.2-12.0 [facility] Work Phone: Determination of erythrocyte mean corpuscular volume (MCV)on 06-29-2022 MCV (RBC) [Entitic vol] 90.5 fL 81-99 [facility] Work Phone: Hematocrit Auto (Bld) [Volum e fraction]on 06-29-2022 Hematocrit (Bld) [Volume fraction] 40.2 % 37-47 [facility] Work Phone: [phone] Ketones Test strip Ql (U)on 06-29-2022 Ketones Ql (U) Negative Negative [facility] Work Phone: Laboratory - Chemistry and C hemistry - challengeon 06-29-2022 CO2 [Moles/Vol] 28.0 mmol/L 21.0-32.0 [facility] Work Phone: Urea nitrogen/Creatinine [Mass ratio] 23.1 mg/mg 10-20 [facility] Work Phone: [phone] Laboratory - Hematology and Cell countson 06-29-2022 Erythrocyte distribution width (RBC) [Entitic vol] 41.0 fL 35.1-43.9 [facility] Work Phone: [phone] Erythrocyte distribution width (RBC) [Ratio] 12.7 % 11.6-14.6 [facility] Work Phone: [phone] Immature granulocytes/100 WBC (Bld) 0.500 % 0.0-0.9 [facility] Work Phone: [phone] Comment on above: IG% - Immature Granu locytes (promyelocytes, myelocytes and metamyelocytes) > 1% indicates that a LEFT SHIFT is Present. MCH (RBC) [Entitic mass] 30.9 pg 27.0-32.0 [facility] Work Phone: Nucleated RBC/100 WBC (Bld) [Ratio] 0 % 0-5 [facility] Work Phone: MCHC Auto (RBC) [Mass/Vol]on 06-29-2022 MCHC (RBC) [Mass/Vol] 34.1 g/dL 32-36 [facility] Work Phone: Mucus LM Ql (Urine sed)on Mucus Ql (Urine sed) 0 SEEN /hpf [facility] Work Phone: Nitrite Test strip Ql (U)on 06-29-2022 Nitrite Ql (U) Negative Negative [facility] Work Phone: No Panel Informationon 06-29 Estimated Creatinine Clearance Calc 89.98 ml/min [facility] Work Phone: Estimated GFR (MDRD) Amer 126 mL/min >60 [facility] Work Phone: Comment on above: GFR Calc Estimated GFR (MDRD) Non-Af Amer 104 mL/min >60 [facility] Work Phone: Comment on above: Non- GFR Calc Platelets bldon 06-29-2022 Platelets (Bld) [#/Vol] 287 10*3/uL 150-450 [facility] Work Phone: Protein Test strip Ql (U)on 06-29-2022 Protein Ql (U) 30 mg/dl Negative [facility] Work Phone: [phone] Serum or plasma calcium sabino urement (mass/volume)on 06-29-2022 Calcium [Mass/Vol] 9.7 mg/dL 8.5-10.1 [facility] Work Phone: [phone] Serum or plasma creatinine m easurement (mass/volume)on 06-29-2022 Creatinine [Mass/Vol] 0.74 mg/dL 0.55-1.02 [facility] Work Phone: Comment on above: The validity of the calculated GFR & GFRAA in patients over 70 years has not been determined. Clinical correlation is essential. Serum or plasma urea nitroge n measurement (mass/volume)on 06-29-2022 Urea nitrogen [Mass/Vol] 17 mg/dL 7-18 [facility] Work Phone: Squamous epithelial cells de tection in urine sediment by light microscopyon 06-29-2022 Epithelial cells.squamous LM Ql (Urine sed) 0-5 SEEN /hpf 5-10 [facility] Work Phone: Thin prep Papanicolaou smear with manual screeningon 06-29-2022 Thin prep Papanicolaou smear with manual screening 8 5-15 [facility] Work Phone: Urine blood detectionon 06-11 RBC Ql (U) 25 /ul Negative [facility] Work Phone: RBC Ql (U) 0-5 SEEN /hpf 0-5 [facility] Work Phone: Urine clarityon 06-29-2022 Clarity (U) Clear Clear [facility] Work Phone: Urine color determinationon 06-29-2022 Color (U) Yellow Yellow [facility] Work Phone: Urine glucose detectionon Glucose Ql (U) Normal mg/dl Normal [facility] Work Phone: Urine leukocyte esterase det ection by dipstickon 06-29-2022 Leukocyte esterase Test strip Ql (U) 25 /ul Negative [facility] Work Phone: Urine pHon 06-29-2022 pH (U) 6.5 [pH] 5.0 - 8.0 [facility] Work Phone: Urine sediment bacteria coun t by microscopy (number/high power field)on 06-29-2022 Bacteria LM.HPF (Urine sed) [#/Area] 0 /[HPF] None Seen [facility] Work Phone: Urine specific gravity measu rementon 06-29-2022 Specific gravity (U) [Rel density] 1.010 1.002-1.030 [facility] Work Phone: Urobilinogen Auto test strip Ql (U)on 06-29-2022 Urobilinogen Ql (U) Normal mg/dl Normal [facility] Work Phone: CBC W Auto Differential pane l (Bld)on 05-31-2022 Basophils (Bld) [#/Vol] 10*3/uL Normal <0.11 [facility] Comment on above: Order Comment: Speci men Type: BLOOD SPECIMENOrdering Facility: [facility] Address: [address] [address] Performed By: #### 5 7021-8 ####[facility] LABORATORYCLIA [id number] [address] [place] Basophils/100 WBC (Bld) 0.0 % Normal [facility] Comment on above: Order Comment: Speci men Type: BLOOD SPECIMENOrdering Facility: [facility] Address: [address] [place] [address] Performed By: #### 5 7021-8 ####[facility] LABORATORYCLIA [id number] [address] [place] Differential cell count method Nom (Bld) Auto Normal [facility] Comment on above: Order Comment: Speci men Type: BLOOD SPECIMENOrdering Facility: [facility] Address: [address] [place] [address] Performed By: #### 5 7021-8 ####[facility]ATORYCLIA [id number] [place] [address] [place] Eosinophils (Bld) [#/Vol] 10*3/uL Normal <0.46 [facility] Comment on above: Order Comment: Speci men Type: BLOOD SPECIMENOrdering Facility: [facility] Address: [address] [place] [address] Performed By: #### 5 7021-8 ####[facility]ATORYCLIA [id number] [place] [address] [place] Eosinophils/100 WBC (Bld) 0.2 % Normal [facility] Comment on above: Order Comment: Speci men Type: BLOOD SPECIMENOrdering Facility: [facility] Address: [address] [place] [address] Performed By: #### 5 7021-8 ####[facility] LABORATORYCLIA [id number] [address] Erythrocyte distribution width (RBC) [Ratio] 12.5 % Normal 11.5-15.0 [facility] Comment on above: Order Comment: Speci men Type: BLOOD SPECIMENOrdering Facility: [facility] Address: [address] [place] [address] Performed By: #### 5 7021-8 ####[facility] LABORATORYCLIA [id number] [address] Hematocrit (Bld) [Volume fraction] 38.8 % Normal 36.0-46.0 [facility] Comment on above: Order Comment: Speci men Type: BLOOD SPECIMENOrdering Facility: [facility] Address: [address] [place] [address] Performed By: #### 5 7021-8 ####[facility] LABORATORYCLIA [id number] [address] Hemoglobin (Bld) [Mass/Vol] 13.4 g/dL Normal 11.5-15.5 [facility] Comment on above: Order Comment: Speci men Type: BLOOD SPECIMENOrdering Facility: [facility] Address: [address] [place] [address] Performed By: #### 5 7021-8 ####[facility] LABORATORYCLIA [id number] [address] IMMATURE GRAN % 0.2 % Normal [facility] Comment on above: Order Comment: Speci men Type: BLOOD SPECIMENOrdering Facility: [facility] Address: [address] [place] [address] Performed By: #### 5 7021-8 ####[facility] LABORATORYCLIA [id number] [place] [address] IMMATURE GRAN ABS <0.03 Normal <0.10 [facility] [facility] Comment on above: Order Comment: Speci men Type: BLOOD SPECIMENOrdering Facility: [facility] Address: [address] [place] [address] Performed By: #### 5 7021-8 ####[facility] LABORATORYCLIA [id number] [address] OF [facility] Lymphocytes (Bld) [#/Vol] 1.08 10*3/uL Normal 1.00-4.00 [facility] Comment on above: Order Comment: Speci men Type: BLOOD SPECIMENOrdering Facility: [facility] Address: [address] [place] [address] Performed By: #### 5 7021-8 ####[facility] LABORATORYCLIA [id number] [address] Lymphocytes/100 WBC (Bld) 26.3 % Normal [facility] Comment on above: Order Comment: Speci men Type: BLOOD SPECIMENOrdering Facility: [facility] Address: [address] [place] [address] Performed By: #### 5 7021-8 ####[facility] LABORATORYCLIA [id number] [address] MCH (RBC) [Entitic mass] 30.2 pg Normal 26.0-34.0 [facility] Comment on above: Order Comment: Speci men Type: BLOOD SPECIMENOrdering Facility: [facility] Address: [address] [place] [address] Performed By: #### 5 7021-8 ####[facility] LABORATORYCLIA [id number] [address] MCHC (RBC) [Mass/Vol] 34.5 g/dL Normal 30.5-36.0 [facility] Comment on above: Order Comment: Speci men Type: BLOOD SPECIMENOrdering Facility: [facility] Address: [address] [place] [address] Performed By: #### 5 7021-8 ####[facility]ATORYCLIA [id number] [address] [place] MCV (RBC) [Entitic vol] 87.6 fL Normal 80.0-100.0 [facility] Comment on above: Order Comment: Speci men Type: BLOOD SPECIMENOrdering Facility: [facility] Address: [address] [place] [address] Performed By: #### 5 7021-8 ####[facility]ATORYCLIA [id number] [address] [place] Monocytes (Bld) [#/Vol] 0.34 10*3/uL Normal <0.87 [facility] Comment on above: Order Comment: Speci men Type: BLOOD SPECIMENOrdering Facility: [facility] Address: [address] [place] [address] Performed By: #### 5 7021-8 ####[facility] LABORATORYCLIA [id number] [address] Monocytes/100 WBC (Bld) 8.3 % Normal [facility] Comment on above: Order Comment: Speci men Type: BLOOD SPECIMENOrdering Facility: [facility] Address: [address] [place] [address] Performed By: #### 5 7021-8 ####[facility] LABORATORYCLIA [id number] [address] [place] Neutrophils (Bld) [#/Vol] 2.66 10*3/uL Normal 1.45-7.50 [facility] Comment on above: Order Comment: Speci men Type: BLOOD SPECIMENOrdering Facility: [facility] Address: [address] [place] [address] Performed By: #### 5 7021-8 ####[facility] LABORATORYCLIA [id number] [address] [place] Neutrophils/100 WBC (Bld) 65.0 % Normal [facility] Comment on above: Order Comment: Speci men Type: BLOOD SPECIMENOrdering Facility: [facility] Address: [address] Performed By: #### 5 7021-8 ####[facility] LABORATORYCLIA [id number] [address] Nucleated RBC (Bld) [#/Vol] 10*3/uL Normal <0.01 [facility] Comment on above: Order Comment: Speci men Type: BLOOD SPECIMENOrdering Facility: [facility] Address: [address] Performed By: #### 5 7021-8 ####[facility] LABORATORYCLIA [id number] [address] Nucleated RBC/100 WBC (Bld) [Ratio] 0.0 /100 WBC Normal [facility] Comment on above: Order Comment: Speci men Type: BLOOD SPECIMENOrdering Facility: [facility] Address: [address] [place] [address] Performed By: #### 5 7021-8 ####[facility] LABORATORYCLIA [id number] [address] STATES [facility] Platelet mean volume (Bld) [Entitic vol] 9.7 fL Normal 9.0-12.7 [facility] Comment on above: Order Comment: Speci men Type: BLOOD SPECIMENOrdering Facility: [facility] Address: [address] Performed By: #### 5 7021-8 ####[facility] LABORATORYCLIA [id number] [address] Platelets (Bld) [#/Vol] 178 10*3/uL Normal 150-400 [facility] Comment on above: Order Comment: Speci men Type: BLOOD SPECIMENOrdering Facility: [facility] Address: [address] [place] [address] Performed By: #### 5 7021-8 ####[facility] LABORATORYCLIA [id number] [address] [place] RBC (Bld) [#/Vol] 4.43 10*6/uL Normal 3.90-5.20 [facility] Comment on above: Order Comment: Speci men Type: BLOOD SPECIMENOrdering Facility: [facility] Address: [address] [place] [address] Performed By: #### 5 7021-8 ####[facility] LABORATORYCLIA [id number] [address] OF [facility] WBC (Bld) [#/Vol] 4.10 10*3/uL Normal 3.70-11.00 [facility] Comment on above: Order Comment: Speci men Type: BLOOD SPECIMENOrdering Facility: [facility] Address: [address] [place] [address] Performed By: #### 5 7021-8 ####[facility] LABORATORYCLIA [id number] [address] Comprehensive metabolic 2000 panelon 05-31-2022 Albumin [Mass/Vol] 4.5 g/dL Normal 3.9-4.9 [facility] Comment on above: Order Comment: Speci men Type: BLOOD SPECIMENOrdering Facility: [facility] Address: [address] [place] [address] Performed By: #### 3 040-3, 34995-5, 49632-6 ####[facility] LABORATORYCLIA [id number] [address] STATES OF [facility] ALP [Catalytic activity/Vol] 60 U/L Normal 34-123 [facility] Comment on above: Order Comment: Speci men Type: BLOOD SPECIMENOrdering Facility: [facility] Address: [address] [place] [address] Performed By: #### 3 040-3, 43811-0, 92275-6 ####[facility] LABORATORYCLIA [id number] [address] OF [facility] ALT With P-5'-P [Catalytic activity/Vol] 55 U/L High 7-38 [facility] Comment on above: Order Comment: Speci men Type: BLOOD SPECIMENOrdering Facility: [facility] Address: [address] [place] [address] Performed By: #### 3 040-3, , ####[facility] LABORATORYCLIA [id number] [address] STATES OF [facility] Anion gap [Moles/Vol] 12 mmol/L Normal 9-18 [facility] Comment on above: Order Comment: Speci men Type: BLOOD SPECIMENOrdering Facility: [facility] Address: [address] [place] [address] Performed By: #### 3 040-3, , ####[facility] LABORATORYCLIA [id number] [place] [address] [place] AST With P-5'-P [Catalytic activity/Vol] 57 U/L High 13-35 [facility] Comment on above: Order Comment: Speci men Type: BLOOD SPECIMENOrdering Facility: [facility] Address: [address] [place] [address] Performed By: #### 3 040-3, , ####[facility] LABORATORYCLIA [id number] [place] [address] [place] Bilirubin [Mass/Vol] 0.5 mg/dL Normal 0.2-1.3 [facility] Comment on above: Order Comment: Speci men Type: BLOOD SPECIMENOrdering Facility: [facility] Address: [address] [place] [address] Performed By: #### 3 040-3, 34461-7, ####[facility] LABORATORYCLIA [id number] [address] [place] Calcium [Mass/Vol] 8.9 mg/dL Normal 8.5-10.2 [facility] Comment on above: Order Comment: Speci men Type: BLOOD SPECIMENOrdering Facility: [facility] Address: [address] [place] [address] Performed By: #### 3 040-3, 02321-5, ####[facility] LABORATORYCLIA [id number] [place] [address] [place] Chloride [Moles/Vol] 102 mmol/L Normal 97-105 [facility] Comment on above: Order Comment: Speci men Type: BLOOD SPECIMENOrdering Facility: [facility] Address: [address] [place] [address] Performed By: #### 3 040-3, 38922-1, ####[facility] LABORATORYCLIA [id number] [place] [address] [place] CO2 [Moles/Vol] 25 mmol/L Normal 22-30 [facility] Comment on above: Order Comment: Speci men Type: BLOOD SPECIMENOrdering Facility: [facility] Address: [address] [place] [address] Performed By: #### 3 040-3, , ####[facility] LABORATORYCLIA [id number] [address] OF [facility] Creatinine [Mass/Vol] 0.74 mg/dL Normal 0.58-0.96 [facility] Comment on above: Order Comment: Speci men Type: BLOOD SPECIMENOrdering Facility: [facility] Address: [address] [place] [address] Performed By: #### 3 040-3, , ####[facility] LABORATORYCLIA [id number] [address] ESTIMATED GLOMERULAR FILTRATION RATE 117 mL/min/1.73m??? Normal >=60 [facility] Comment on above: Order Comment: Speci men Type: BLOOD SPECIMENOrdering Facility: [facility] Address: [address] [place] [address] Result Comment: Tierra mated Glomerular Filtration Rate [...] GFR. Performed By: #### 3 040-3, , ####[facility] LABORATORYCLIA [id number] [place] [address] [place] Glucose [Mass/Vol] 91 mg/dL Normal 74-99 [facility] Comment on above: Order Comment: Eloise lopez Type: BLOOD SPECIMENOrdering Facility: [facility] Address: [address] [place] [id number] Result Comment: The [employer] Diabetes Association (ADA) provides guidance for cutoff [...] Standards of Medical Care in Diabetes 2016, British Diabetes Association. Diabetes Care. 2016.39(Suppl 1). Performed By: #### 3 040-3, , ####[facility] LABORATORYCLIA [id number] [place] [id number] [place] Potassium [Moles/Vol] 3.6 mmol/L Low 3.7-5.1 [facility] Comment on above: Order Comment: Eloise lopez Type: BLOOD SPECIMENOrdering Facility: [facility] Address: [address] [place] [address] Performed By: #### 3 040-3, , ####[facility] LABORATORYCLIA [id number] [place] [address] [place] Protein [Mass/Vol] 6.7 g/dL Normal 6.3-8.0 [facility] Comment on above: Order Comment: Speci men Type: BLOOD SPECIMENOrdering Facility: [facility] Address: [address] [place] [address] Performed By: #### 3 040-3, , ####[facility] LABORATORYCLIA [id number] [address] OF [facility] Sodium [Moles/Vol] 139 mmol/L Normal 136-144 [facility] Comment on above: Order Comment: Speci men Type: BLOOD SPECIMENOrdering Facility: [facility] Address: [address] [place] [address] Performed By: #### 3 040-3, 38309-6, ####[facility] LABORATORYCLIA [id number] [address] [place] Urea nitrogen [Mass/Vol] 7 mg/dL Normal 7-21 [facility] Comment on above: Order Comment: Speci men Type: BLOOD SPECIMENOrdering Facility: [facility] Address: [address] [place] [address] Performed By: #### 3 040-3, 85761-3, ####[facility] LABORATORYCLIA [id number] [address] ED NOTEon 05-31-2022 ED NOTE HNO ID: [id number] Author: Agueda Meng RN Service: Emergency Medicine Author Type: Registered Nurse Type: ED Notes Filed: 05/31/2022 2:42 PM Note Text: Pt alert and oriented x 4, speaking in full sentences with unlabored breathing. Pt verbalizes understanding of discharge paperwork. Pt ambulated from department without difficulty. Normal [facility] ED NOTE HNO ID: [id number] Author: Agueda Meng RN Service: Emergency Medicine [...] bedside at this time. Normal [facility] ED NOTE HNO ID: [id number] Author: Agueda Meng RN Service: Emergency Medicine Author Type: Registered Nurse Type: ED Notes Filed: 05/31/2022 12:14 PM Note Text: POC BG 80 Normal [facility] ED NOTE HNO ID: [id number] Author: Agueda Meng RN Service: Emergency Medicine Author Type: Registered Nurse Type: ED Notes Filed: 05/31/2022 11:36 AM Note Text: Pt c/o weakness along with generalized illness symptoms. 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 Normal [facility] ED NOTE HNO ID: [id number] Author: Danuta Staley RN Service: ? Author Type: Registered Nurse Type: ED Notes Filed: 05/31/2022 11:04 AM Note Text: Bed: 46-ED Expected date: Expected time: Means of arrival: Comments: triage Normal [facility] ED PROV NOTEon 05-31-2022 ED PROV NOTE HNO ID: [id number] Author: Hiwot Hudson MD Service: Emergency Medicine [...] Hudson MD 05/31/22 1548 Normal [facility] ED PROV NOTE HNO ID: [id number] Author: Hiwot Hudson MD Service: Emergency Medicine [...] Diagnosis Date Cognitive disorder IEP per the [facility] Psychologist [facility] Kidney stone [...] (more content not included)... Normal [facility] EKGon 05-31-2022 Electrocardiogram Ventricular Rate : 7 1 BPM Atrial Rate : 71 BPM P-R Interval : 118 ms QRS Duration : 84 ms Q-T Interval : 448 ms QTC Calculation(Bazett) : 486 ms Calculated P Saco : 23 degrees Calculated R Saco : 58 degrees Calculated T Saco : 27 degrees NORMAL SINUS RHYTHM NONSPECIFIC T WAVE ABNORMALITY PROLONGED QT ABNORMAL ECG NO PREVIOUS ECGS AVAILABLE Confirmed by KAUSHIK GUADALUPE MD ([id number]) on 06/04/2022 3:38:07 AM NAME : LUZ OLIVEIRA PID : [id number] : 2000 Gender : Female Race : ORD : Procedure Date : May 31 2022 13:06:20 Edit Date : Jun 04 2022 03:38:08 Diagnosis: NORMAL SINUS RHYTHM NONSPECIFIC T WAVE ABNORMALITY PROLONGED QT ABNORMAL ECG NO PREVIOUS ECGS AVAILABLE Confirmed by KAUSHIK GUADALUPE MD ([id number]) on 06/04/2022 3:38:07 AM Test Reason : Location : 4 : [place] Overread By : KAUSHIK GUADALUPE MD Edited By : KAUSHIK GUADALUPE MD Referred By : , Acquired by : FRIEDKIRIT Normal [facility] HCG Preg Ur Qlon 05-31-2022 HCG ( test) Ql (U) Negative Normal Negative [facility] Comment on above: Order Comment: Speci men Type: URINE SPECIMENOrdering Facility: [facility] Address: [address] [place], [place] [id number] Result Comment: This test is intended to [...] for . Performed By: #### 2 106-3 ####[facility] LABORATORYCLIA [id number] [place] [address] [place] Lipase SerPl-cCncon 05-31-20 Lipase [Catalytic activity/Vol] 17 U/L Normal 16-61 [facility] Comment on above: Order Comment: Speci men Type: BLOOD SPECIMENOrdering Facility: [facility] Address: [address] [place] [address] Performed By: #### 3 040-3, 48642-1, 30106-6 ####[facility] LABORATORYCLIA [id number] [place] [address] [place] Magnesium SerPl-mCncon 05-31 Magnesium [Mass/Vol] 1.8 mg/dL Normal 1.7-2.3 [facility] Comment on above: Order Comment: Speci men Type: BLOOD SPECIMENOrdering Facility: [facility] Address: [address] [place] [address] Performed By: #### 3 040-3, 71046-4, 07248-0 ####[facility] LABORATORYCLIA [id number] [place] [address] [place] ROUTINE FLU A/B + RSVon 08- FLUAV RNA CHICHO+probe Ql (Unsp spec) Negative Normal Negative for Influenza A by RT-PCR [facility] Comment on above: Order Comment: Speci men Type: SWAB OF INTERNAL NOSEOrdering Facility: [facility] Address: [address] [place] [address] Performed By: #### R TFRSV, 78787-3 ####[facility] LABCLIA [id number] [address] [place] FLUBV RNA CHICHO+probe Ql (Unsp spec) Negative Normal Negative for Influenza B by RT-PCR [facility] Comment on above: Order Comment: Speci men Type: SWAB OF INTERNAL NOSEOrdering Facility: [facility] Address: [address] [place] [address] Performed By: #### R TFRSV, 64196-3 ####[facility] LABCLIA [id number] [place] [address] [place] RSV A RNA CHICHO+probe Ql (Unsp spec) Negative Normal Negative for Respiratory Syncytial Virus (RSV) by PCR [facility] Comment on above: Order Comment: Speci men Type: SWAB OF INTERNAL NOSEOrdering Facility: [facility] Address: [address] [place] [address] Performed By: #### R TFRSV, 26242-6 ####[facility] LABCLIA [id number] [place] [address] [place] SARS-CoV-2 RNA Resp Ql CHICHO+p robeon 05-31-2022 SARS-CoV-2 (COVID-19) RNA CHICHO+probe Ql (Resp) SARS-CoV-2 (Agent of COVID-19) Detected by RT-PCR or equivalent method. Abnormal Not Detected [facility] Comment on above: Order Comment: Speci men Type: SWAB OF INTERNAL NOSEOrdering Facility: [facility] Address: [address] [place] [address] Result Comment: This test was developed and its performance characteristics determined by [facility] Pathology and Laboratory Medicine [place]. This test has been authorized by FDA under an Emergency Use Authorization (EUA). This test has been validated in accordance with the FDA's Guidance Document Policy for Diagnostics Testing in Laboratories Certified to Perform High Complexity Testing under CLIA prior to Emergency use Authorization for Coronavirus Disease 2019 during the Public Health Emergency issued on December 09, 2019. Test performed by [facility], [facility] Pathology and Laboratory Medicine [place], [address] [place] [address]. Performed By: #### R [facility], 07256-2 ####[facility] LABCLIA [id number] [address] [place] Urinalysis complete panel (U )on 05-31-2022 Bilirubin Ql (U) Negative Normal Negative [facility] Comment on above: Order Comment: Speci men Type: URINE SPECIMENOrdering Facility: [facility] Address: [address] [place] [address] Performed By: #### 2 4356-8 ####[facility] LABORATORYCLIA [id number] [address] [place] Clarity (Unsp spec) Clear Normal Clear [facility] Comment on above: Order Comment: Speci men Type: URINE SPECIMENOrdering Facility: [facility] Address: [address] [place] [address] Performed By: #### 2 4356-8 ####[facility] LABORATORYCLIA [id number] [address] [place] Color (U) Colorless Normal yellow [facility] Comment on above: Order Comment: Speci men Type: URINE SPECIMENOrdering Facility: [facility] Address: [address] [place] [address] Performed By: #### 2 4356-8 ####[facility] LABORATORYCLIA [id number] [address] Glucose Test strip (U) [Mass/Vol] Negative Normal Negative [facility] Comment on above: Order Comment: Speci men Type: URINE SPECIMENOrdering Facility: [facility] Address: [address] [place] [address] Performed By: #### 2 4356-8 ####[facility]ORATORYCLIA [id number] [address] Hemoglobin Ql (U) Negative Normal Negative [facility] Comment on above: Order Comment: Speci men Type: URINE SPECIMENOrdering Facility: [facility] Address: [address] [place] [address] Performed By: #### 2 4356-8 ####[facility] LABORATORYCLIA [id number] [address] [place] Ketones Ql (U) 2+ Abnormal Negative [facility] Comment on above: Order Comment: Speci men Type: URINE SPECIMENOrdering Facility: [facility] Address: [address] [place] [address] Performed By: #### 2 4356-8 ####[facility]ATORYCLIA [id number] [address] Leukocyte esterase Test strip Ql (U) Negative Normal Negative [facility] Comment on above: Order Comment: Speci men Type: URINE SPECIMENOrdering Facility: [facility] Address: [address] [place] [address] Performed By: #### 2 4356-8 ####[facility] LABORATORYCLIA [id number] [place] [address] [place] Nitrite Ql (U) Negative Normal Negative [facility] Comment on above: Order Comment: Speci men Type: URINE SPECIMENOrdering Facility: [facility] Address: [address] [place] [address] Performed By: #### 2 4356-8 ####[facility] LABORATORYCLIA [id number] [address] STATES [facility] pH (U) 7.5 [pH] Normal 5.0-8.0 [facility] Comment on above: Order Comment: Speci men Type: URINE SPECIMENOrdering Facility: [facility] Address: [address] [place] [address] Performed By: #### 2 4356-8 ####[facility] LABORATORYCLIA [id number] [address] STATES [facility] Protein (U) [Mass/Vol] Negative Normal Negative [facility] Comment on above: Order Comment: Speci men Type: URINE SPECIMENOrdering Facility: [facility] Address: [address] [place] [address] Performed By: #### 2 4356-8 ####[facility] LABORATORYCLIA [id number] [address] [place] RBC LM.HPF (Urine sed) [#/Area] 0-3 /HPF Normal 0-3 /HPF [facility] Comment on above: Order Comment: Speci men Type: URINE SPECIMENOrdering Facility: [facility] Address: [address] [place] [address] Performed By: #### 2 4356-8 ####[facility] LABORATORYCLIA [id number] [address] Urobilinogen Ql (U) Normal Normal Negative [facility] Comment on above: Order Comment: Speci men Type: URINE SPECIMENOrdering Facility: [facility] Address: [address] [place] [address] Performed By: #### 2 4356-8 ####[facility] LABORATORYCLIA [id number] [address] [place] WBC LM.HPF (Urine sed) [#/Area] 0-5 /HPF Normal 0-5 /HPF [facility] Comment on above: Order Comment: Speci men Type: URINE SPECIMENOrdering Facility: [facility] Address: [address] [place] [address] Performed By: #### 2 4356-8 ####[facility] LABORATORYCLIA [id number] [address] Urinalysis complete pnl Uron 05-31-2022 Specific gravity (U) [Rel density] 1.005 Normal 1.005-1.030 [facility] Comment on above: Order Comment: Speci men Type: URINE SPECIMENOrdering Facility: [facility] Address: [address] [place] [address] Performed By: #### 2 4356-8 ####[facility] LABORATORYCLIA [id number] [address] Result Comment: If s pecific gravity is <1.005 then results may be falsely negative. Serum HCG is recommended. Performed By: #### 2 106-3 ####[facility] LABORATORYCLIA [id number] [address] ALLIED HEALTHon 12-31-2021 ALLIED HEALTH HNO ID: [id number] Author: RT Tierney(R) Service: Radiology Author Type: State Wildlife Officer Type: Allied Health Filed: 12/31/2021 7:25 PM [...] 2021 TIME: 7:20 PM Normal [facility] Bacteria Ur Culton 2 Bacteria identified Cx Nom (U) CULTURE, URINE: Three or more urogenital den organisms. No predominating uropathogen. Recollect if clinically indicated. Normal [facility] Comment on above: Performed By: #### 6 30-4 #### [facility] CLIA [id number] [address] STATES OF [facility] CBC W Auto Differential pane l (Bld)on 12-31-2021 Basophils (Bld) [#/Vol] 10*3/uL Normal <0.11 [facility] Comment on above: Order Comment: Speci men Type: BLOOD SPECIMENOrdering Facility: [facility] Address: [address] [place] [address] [place] [address] Performed By: #### 5 7021-8 ####[facility] LABCLIA [id number] [address] STATES OF [facility] Basophils/100 WBC (Bld) 0.1 % Normal [facility] Comment on above: Order Comment: Speci men Type: BLOOD SPECIMENOrdering Facility: [facility] Address: [address] [place] [address] Performed By: #### 5 7021-8 ####[facility] LABCLIA [id number] [facility] [address] [facility] Differential cell count method Nom (Bld) Auto Normal [facility] Comment on above: Order Comment: Speci men Type: BLOOD SPECIMENOrdering Facility: [facility] Address: [address] [place] [address] Performed By: #### 5 7021-8 ####[facility] LABCLIA [id number] [facility] [place] [address] [facility] Eosinophils (Bld) [#/Vol] 0.03 10*3/uL Normal <0.46 [facility] Comment on above: Order Comment: Speci men Type: BLOOD SPECIMENOrdering Facility: [facility] Address: [address] [place] [address] Performed By: #### 5 7021-8 ####[facility] LABCLIA [id number] [facility], [facility] Eosinophils/100 WBC (Bld) 0.3 % Normal [facility] Comment on above: Order Comment: Speci men Type: BLOOD SPECIMENOrdering Facility: [facility] Address: [address] [place] [address] Performed By: #### 5 7021-8 ####[facility] LABCLIA [id number] [place] [address] [facility] [place] Erythrocyte distribution width (RBC) [Ratio] 12.0 % Normal 11.5-15.0 [facility] Comment on above: Order Comment: Speci men Type: BLOOD SPECIMENOrdering Facility: [facility] Address: [address] [place] [address] Performed By: #### 5 7021-8 ####[facility] LABCLIA [id number] [facility] [place] [address] [place] Hematocrit (Bld) [Volume fraction] 40.3 % Normal 36.0-46.0 [facility] Comment on above: Order Comment: Speci men Type: BLOOD SPECIMENOrdering Facility: [facility] Address: [address] [place] [address] Performed By: #### 5 7021-8 ####[facility] LABCLIA [id number] [facility] [place] [address] [place] Hemoglobin (Bld) [Mass/Vol] 13.8 g/dL Normal 11.5-15.5 [facility] Comment on above: Order Comment: Speci men Type: BLOOD SPECIMENOrdering Facility: [facility] Address: [address] [place] [address] Performed By: #### 5 7021-8 ####[facility] [employer] LABCLIA [id number] [facility] [address] [place] Lymphocytes (Bld) [#/Vol] 1.98 10*3/uL Normal 1.00-4.00 [facility] Comment on above: Order Comment: Speci men Type: BLOOD SPECIMENOrdering Facility: [facility] Address: [address] [place] [address] Performed By: #### 5 7021-8 ####[facility] [employer] LABCLIA [id number] [place] [address] [place] Lymphocytes/100 WBC (Bld) 20.3 % Normal [facility] Comment on above: Order Comment: Speci men Type: BLOOD SPECIMENOrdering Facility: [facility] Address: [address] [place] [address] Performed By: #### 5 7021-8 ####[facility] [employer] LABCLIA [id number] [place] [address] [place] MCH (RBC) [Entitic mass] 30.7 pg Normal 26.0-34.0 [facility] Comment on above: Order Comment: Speci men Type: BLOOD SPECIMENOrdering Facility: [facility] Address: [address] [place] [address] Performed By: #### 5 7021-8 ####[facility] LABCLIA [id number] [facility] [place] [address] [place] MCHC (RBC) [Mass/Vol] 34.2 g/dL Normal 30.5-36.0 [facility] Comment on above: Order Comment: Speci men Type: BLOOD SPECIMENOrdering Facility: [facility] Address: [address] [place] [address] Performed By: #### 5 7021-8 ####[facility] LABCLIA [id number] [place] [address] [place] MCV (RBC) [Entitic vol] 89.6 fL Normal 80.0-100.0 [facility] Comment on above: Order Comment: Speci men Type: BLOOD SPECIMENOrdering Facility: [facility] Address: [address] [place] [address] Performed By: #### 5 7021-8 ####[facility] LABCLIA [id number] [facility], [address] Monocytes (Bld) [#/Vol] 0.70 10*3/uL Normal <0.87 [facility] Comment on above: Order Comment: Speci men Type: BLOOD SPECIMENOrdering Facility: [facility] Address: [address] [place] [address] Performed By: #### 5 7021-8 ####[facility] LABCLIA [id number] [place], [facility]254 [facility] Monocytes/100 WBC (Bld) 7.2 % Normal [facility] Comment on above: Order Comment: Speci men Type: BLOOD SPECIMENOrdering Facility: [facility] Address: [address] [place] [address] Performed By: #### 5 7021-8 ####[facility] LABCLIA [id number] [facility] [address] [facility] [place] Neutrophils (Bld) [#/Vol] 7.02 10*3/uL Normal 1.45-7.50 [facility] Comment on above: Order Comment: Speci men Type: BLOOD SPECIMENOrdering Facility: [facility] Address: [address] [place] [address] Performed By: #### 5 7021-8 ####[facility] LABCLIA [id number] [place] [address] [place] Neutrophils/100 WBC (Bld) 72.1 % Normal [facility] Comment on above: Order Comment: Speci men Type: BLOOD SPECIMENOrdering Facility: [facility] Address: [address] [place] [address] Performed By: #### 5 7021-8 ####[facility] LABCLIA [id number] [place] [address] [place] Platelet mean volume (Bld) [Entitic vol] 9.7 fL Normal 9.0-12.7 [facility] Comment on above: Order Comment: Speci men Type: BLOOD SPECIMENOrdering Facility: [facility] Address: [address] [place] [address] Performed By: #### 5 7021-8 ####[facility] LABCLIA [id number] [place] [address] [place] Platelets (Bld) [#/Vol] 251 10*3/uL Normal 150-400 [facility] Comment on above: Order Comment: Speci men Type: BLOOD SPECIMENOrdering Facility: [facility] Address: [address] [place] [address] Performed By: #### 5 7021-8 ####[facility] LABCLIA [id number] [place] [address] [place] RBC (Bld) [#/Vol] 4.50 10*6/uL Normal 3.90-5.20 [facility] Comment on above: Order Comment: Speci men Type: BLOOD SPECIMENOrdering Facility: [facility] Address: [address] [place] [address] Performed By: #### 5 7021-8 ####[facility] LABCLIA [id number] [place] [address] [facility] WBC (Bld) [#/Vol] 9.74 10*3/uL Normal 3.70-11.00 [facility] Comment on above: Order Comment: Speci men Type: BLOOD SPECIMENOrdering Facility: [facility] Address: [address] [place], [place] [address] [id number] Performed By: #### 5 7021-8 ####[facility] LABCLIA [id number] [place] [address] [facility] [place] CT ABD/PEL W IVCONon 022 CT ABD/PEL W IVCON * * *Final Report* * * DATE OF EXAM: Dec 31 2021 7:25PM [facility] 0530 - CT ABD/PEL W [...] Tissues: No significant finding. Lower thorax: Unremarkable. Lawn Care Technician (topogram) images: No additional findings. IMPRESSION: No acute abnormality Atrophic left kidney with cortical scarring and suspected small nonobstructing calculi. Findings may be related to chronic reflux disease or infection Hepatic steatosis Underwear Finisher: CAROLA Transcribe Date/Time: Dec 31 2021 7:37P Dictated by : DIYA FUENTES MD This examination was interpreted and the report reviewed and electronically signed by: DIYA FUENTES MD on Dec 31 2021 7:42PM EST [id number] N Normal [facility] Comprehensive metabolic 2000 panelon 12-31-2021 Albumin [Mass/Vol] 4.0 g/dL Normal 3.4-5.0 [facility] Comment on above: Order Comment: Speci men Type: BLOOD SPECIMENOrdering Facility: [facility] Address: [address] [place] [address] Performed By: #### 2 4323-8, ####[facility] [employer] [employer] LABCLIA [id number] [place] [address] [place] ALP [Catalytic activity/Vol] 74 U/L Normal 46-116 [facility] Comment on above: Order Comment: Speci men Type: BLOOD SPECIMENOrdering Facility: [facility] Address: [address] [address] Performed By: #### 2 4323-8, ####[employer] LABCLIA [id number] [place] [address] [place] ALT With P-5'-P [Catalytic activity/Vol] 55 U/L Normal 12-78 [facility] Comment on above: Order Comment: Speci men Type: BLOOD SPECIMENOrdering Facility: [facility] Address: [address] [address] Performed By: #### 2 432-8, ####[facility] LABCLIA [id number] [place] [address] [place] Anion gap [Moles/Vol] 2 mmol/L Low 8-16 [facility] Comment on above: Order Comment: Speci men Type: BLOOD SPECIMENOrdering Facility: [facility] Address: [address] [place] [address] Performed By: #### 2 8, ####[facility] LABCLIA [id number] [place] [address] [place] AST With P-5'-P [Catalytic activity/Vol] 29 U/L Normal 15-46 [facility] Comment on above: Order Comment: Speci men Type: BLOOD SPECIMENOrdering Facility: [facility] Address: [address] [place] [address] Result Comment: Spec imen slightly hemolyzed. Performed By: #### 2 4323-05, ####[facility] B[facility] LABCLIA [id number] [place] [address] [place] Bilirubin [Mass/Vol] 0.2 mg/dL Normal 0.2-1.0 [facility] Comment on above: Order Comment: Speci men Type: BLOOD SPECIMENOrdering Facility: [facility] Address: [address] [place], [place] [address] Performed By: #### 2 8, ####[facility] LABCLIA [id number] [place] [address] [place] Calcium [Mass/Vol] 9.1 mg/dL Normal 8.5-10.1 [facility] Comment on above: Order Comment: Speci men Type: BLOOD SPECIMENOrdering Facility: [facility] Address: [address] [place], [place] [address] Performed By: #### 2 4328, ####[facility] LABCLIA [id number] [place] [address] [place] Chloride [Moles/Vol] 100 mmol/L Normal 98-107 [facility] Comment on above: Order Comment: Speci men Type: BLOOD SPECIMENOrdering Facility: [facility] Address: [address] [place] [address] Performed By: #### 2 4323-8, ####[facility] LABCLIA [id number] [place] [address] [place] CO2 [Moles/Vol] 33 mmol/L High 21-32 [facility] Comment on above: Order Comment: Speci men Type: BLOOD SPECIMENOrdering Facility: [facility] Address: [address] [place] [address] Performed By: #### 2 4323-8, ####[facility] LABCLIA [id number] [place] [address] [place] [facility] Creatinine [Mass/Vol] 0.78 mg/dL Normal 0.51-0.95 [facility] Comment on above: Order Comment: Speci men Type: BLOOD SPECIMENOrdering Facility: [facility] Address: [address] [place] [address] Performed By: #### 2 4323-8, ####[facility] LABCLIA [id number] [place] [address] [facility] ESTIMATED GLOMERULAR FILTRATION RATE 110 mL/min/1.73m??? Normal >=60 [facility] Comment on above: Order Comment: Speci men Type: BLOOD SPECIMENOrdering Facility: [facility] Address: [address] [place] [address] Result Comment: Tierra mated Glomerular Filtration Rate [...] actual GFR. Performed By: #### 2 4323-8, ####[facility] [employer] LABCLIA [id number] [place] [address] [place] Glucose [Mass/Vol] 94 mg/dL Normal 70-99 [facility] Comment on above: Order Comment: Speci men Type: BLOOD SPECIMENOrdering Facility: [facility] Address: [address] [place] [address] Result Comment: The [employer] Diabetes Association (ADA) provides guidance for cutoff [...] Standards of Medical Care in Diabetes 2016, British Diabetes Association. Diabetes Care. 2016.39(Suppl 1). Performed By: #### 2 4323-8, 83595-3 ####[email or web address] [employer] LABCLIA [id number] [place] [address] [place] Potassium [Moles/Vol] 3.6 mmol/L Normal 3.5-5.1 [facility] Comment on above: Order Comment: Speci men Type: BLOOD SPECIMENOrdering Facility: [facility] Address: [address] [place] [address] Result Comment: Spec imen slightly hemolyzed. Performed By: #### 2 4323-8, ####[facility] [employer] LABCLIA [id number] [place] [address] [place] Protein [Mass/Vol] 7.7 g/dL Normal 6.4-8.2 [facility] Comment on above: Order Comment: Speci men Type: BLOOD SPECIMENOrdering Facility: [facility] Address: [address] [place] [address] Performed By: #### 2 4323-8, ####[facility] LABCLIA [id number] [facility] [place] [address] [place] Sodium [Moles/Vol] 135 mmol/L Low 136-145 [facility] Comment on above: Order Comment: Speci men Type: BLOOD SPECIMENOrdering Facility: [facility] Address: [address] [place], [place] [address] Performed By: #### 2 4323-8, ####[facility] LABCLIA [id number] [place] [address] [place] Urea nitrogen [Mass/Vol] 10 mg/dL Normal 7-18 [facility] Comment on above: Order Comment: Speci men Type: BLOOD SPECIMENOrdering Facility: [facility] Address: [address] [place] [address] Performed By: #### 2 4323-8, ####[facility] LABCLIA [id number] [place] [address] [facility] ED NOTEon 12-31-2021 ED NOTE HNO ID: [id number] Author: Amy Pena RN Service: Emergency Medicine Author Type: Registered Nurse Type: ED Notes Filed: 12/31/2021 7:03 PM Note Text: Patient resting in room. Patient updated on the plan of care. Bed in low locked position. Call light in reach. Monitoring maintained. Safety and comfort care maintained. Normal [facility] ED NOTE HNO ID: [id number] Author: Amy Pena RN Service: Emergency Medicine Author Type: Registered Nurse Type: ED Notes Filed: 12/31/2021 6:34 PM Note Text: Patient resting in room. Patient updated on the plan of care. Bed in low locked position. Call light in reach. Monitoring maintained. Safety and comfort care maintained. [facility] ED NOTE HNO ID: [id number] Author: Amy Pena RN Service: Emergency Medicine Author Type: Registered Nurse Type: ED Notes Filed: 12/31/2021 5:20 PM Note Text: Patient resting in room. Patient updated on the plan of care. Bed in low locked position. Call light in reach. Monitoring maintained. Safety and comfort care maintained. Normal [facility] ED NOTE HNO ID: [id number] Author: Amy Pena RN Service: Emergency Medicine Author Type: Registered Nurse Type: ED Notes Filed: 12/31/2021 4:55 PM Note Text: Patient updated on the plan of care. Patient medicated per order. Allergies reviewed. Patient verbalized understanding. 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 Emesis x 1 today. Normal BM today. Pt denies dysuria or hematuria. Hx of kidney stone and UTI Normal [facility] ED PROV NOTEon 12-31-2021 ED PROV NOTE HNO ID: [id number] Author: Mary Pereira DO Service: Emergency Medicine [...] (more content not included)... Normal [facility] ED PROV NOTE HNO ID: [id number] Author: Jayde Yeager MD Service: Emergency Medicine [...] Jayde Yeager MD 12/31/212020 Normal [facility] HCG Preg Ur Qlon 12-31-2021 HCG ( test) Ql (U) Negative Normal Negative [facility] Comment on above: Order Comment: Speci men Type: URINE SPECIMENOrdering Facility: [facility] Address: [address] [place] [address], [place] [address] Result Comment: This test is intended to [...] for . Performed By: #### 2 106-3 ####[facility] LABCLIA [id number] [place] [address] [place] Magnesium SerPl-mCncon 12-31 Magnesium [Mass/Vol] 1.9 mg/dL Normal 1.6-2.3 [facility] Comment on above: Order Comment: Speci men Type: BLOOD SPECIMENOrdering Facility: [facility] Address: [place] [address] Performed By: #### 2 4323-8, 29510-4 ####[facility] LABCLIA [id number] [place] [address] [place] US DOPPLER COMPLETEon [...] to body habitus. 4. No free fluid. Underwear Finisher: PSCB Transcribe Date/Time: Dec 31 2021 6:24P Dictated by : KAITY SHAY MD This examination was interpreted and the report reviewed and electronically signed by: KAITY SHAY MD on Dec 31 2021 6:28PM EST [id number] N Normal [facility] US FEMALE PELVIS TRANSABD LT Don [...] to body habitus. 4. No free fluid. Underwear Finisher: CAROLA Transcribe Date/Time: Dec 31 2021 6:24P Dictated by : KAITY SHAY MD This examination was interpreted and the report reviewed and electronically signed by: KAITY SHAY MD on Dec 31 2021 6:28PM EST [id number] N Normal [facility] US FEMALE PELVIS TRANSVAGon 12-31-2021 US [...] to body habitus. 4. No free fluid. Underwear Finisher: [facility] Transcribe Date/Time: Dec 31 2021 6:24P Dictated by : KAITY SHAY MD This examination was interpreted and the report reviewed and electronically signed by: KAITY SHAY MD on Dec 31 2021 6:28PM EST [id number] Normal [facility] Urinalysis complete panel (U )on 12-31-2021 Bacteria LM.HPF (Urine sed) [#/Area] Many Abnormal None Seen [facility] Comment on above: Order Comment: Speci men Type: URINE SPECIMENOrdering Facility: [facility] Address: [address] [place] [address] Performed By: #### 2 4356-8 ####[facility] [employer] LABCLIA [id number] [address] STATES OF [facility] Bilirubin Ql (U) Negative Normal Negative [facility] Comment on above: Order Comment: Speci men Type: URINE SPECIMENOrdering Facility: [facility] Address: [address] [address] Performed By: #### 2 4356-8 ####[facility] LABCLIA [id number] [place] [id number] [place] Clarity (Unsp spec) Clear Normal Clear [facility] Comment on above: Order Comment: Speci men Type: URINE SPECIMENOrdering Facility: [facility] Address: [address] [place] [address] Performed By: #### 2 4356-8 ####[facility] LABCLIA [id number] [facility] [place] [address] [place] Color (U) Yellow Normal Yellow [facility] Comment on above: Order Comment: Speci men Type: URINE SPECIMENOrdering Facility: [facility] Address: [address] [place] [address] Performed By: #### 2 4356-8 ####[facility] LABCLIA [id number] [facility] [place] [address] [facility] Epithelial cells LM.HPF (Urine sed) [#/Area] Many Normal [facility] Comment on above: Order Comment: Speci men Type: URINE SPECIMENOrdering Facility: [facility] Address: [address] [place] [address] Performed By: #### 2 4356-8 ####[facility] LABCLIA [id number] [facility] [place] [address] [facility] Glucose Test strip (U) [Mass/Vol] Negative Normal Negative [facility] Comment on above: Order Comment: Speci men Type: URINE SPECIMENOrdering Facility: [facility] Address: [address] [place] [address] Performed By: #### 2 4356-8 ####[facility] LABCLIA [id number] [facility] [place] [address] [place] Hemoglobin Ql (U) 2+ Abnormal Negative [facility] Comment on above: Order Comment: Speci men Type: URINE SPECIMENOrdering Facility: [facility] Address: [address] [place] [address] Performed By: #### 2 4356-8 ####[facility] LABCLIA [id number] [facility] [place] [address] [place] Ketones Ql (U) Negative Normal Negative [facility] Comment on above: Order Comment: Speci men Type: URINE SPECIMENOrdering Facility: [facility] Address: [address] [place] [address] Performed By: #### 2 4356-8 ####[facility] LABCLIA [id number] [facility] [place] [address] [facility] [place] Leukocyte esterase Test strip Ql (U) Trace Abnormal Negative [facility] Comment on above: Order Comment: Speci men Type: URINE SPECIMENOrdering Facility: [facility] Address: [address] [place] [address] Performed By: #### 2 4356-8 ####[facility] LABCLIA [id number] [facility] [place] [address] [place] Nitrite Ql (U) Negative Normal Negative [facility] Comment on above: Order Comment: Speci men Type: URINE SPECIMENOrdering Facility: [facility] Address: [address] [place] [address] Performed By: #### 2 4356-8 ####[facility] LABCLIA [id number] [facility] [place] [address] [place] pH (U) 6.0 [pH] Normal 5.0-8.0 [facility] Comment on above: Order Comment: Speci men Type: URINE SPECIMENOrdering Facility: [facility] Address: [address] [place] [address] Performed By: #### 2 4356-8 ####[facility] LABCLIA [id number] [facility] [place] [address] [place] Protein (U) [Mass/Vol] Normal [facility] Comment on above: Order Comment: Speci men Type: URINE SPECIMENOrdering Facility: [facility] Address: [address] [place] [address] Result Comment: Visi ble blood causes falsely elevated results for analyte Protein. Due to this limitation, Protein will not be reported for patients whose urine contains visible blood. Performed By: #### 2 4356-8 ####[facility] LABCLIA [id number] [place] [address] [place] [facility] RBC LM.HPF (Urine sed) [#/Area] 11-25 /HPF Abnormal 0-3 /HPF [facility] Comment on above: Order Comment: Speci men Type: URINE SPECIMENOrdering Facility: [facility] Address: [address] [place] [address] Performed By: #### 2 4356-8 ####[facility] LABCLIA [id number] [place] [address] [facility] Specific gravity (U) [Rel density] >=1.030 High 1.005-1.030 [facility] Comment on above: Order Comment: Speci men Type: URINE SPECIMENOrdering Facility: [facility] Address: [address] [place] [address] Performed By: #### 2 4356-8 ####[facility] LABCLIA [id number] [address] Urobilinogen Ql (U) 0.2 EU/dL Normal 0.2-1.0 EU/dL [facility] Comment on above: Order Comment: Speci men Type: URINE SPECIMENOrdering Facility: [facility] Address: [address] [place] [address] Performed By: #### 2 4356-8 ####[facility] LABCLIA [id number] [place] [id number] [facility] WBC LM.HPF (Urine sed) [#/Area] 6-10 /HPF Abnormal 0-5 /HPF [facility] Comment on above: Order Comment: Speci men Type: URINE SPECIMENOrdering Facility: [facility] Address: [address] [place] [address] Performed By: #### 2 4356-8 ####[facility] LABCLIA [id number] [place] [address] [facility] COVID 19, [facility](RT COLLECT )on 03-17-2021 SARS-CoV-2 (COVID-19) RNA CHICHO+probe Ql (Unsp spec) Not detected Normal Not Detect [facility] Comment on above: Result Comment: Norm al Reference Range: Not Detected Method:(RT-PCR) real-time reverse transcriptase PCR Luminex TrustedAd Instrument *The Food and Drug Administration (FDA) has issued an Emergency Use Authorization (EAU) for the TrustedAd SARS-CoV-2 Assay for the rapid detection of [...] exposure. Performed By: #### L 3400.2405 #### [facility] [address] [place], [address] HAND RIGHT COMPLETEon 2020 HAND RIGHT COMPLETE EXAM: Right hand HISTORY: Pain after shutting a door on the hand on 01/27/2021. TECHNIQUE: 3 views of the right hand were obtained. FINDINGS: There is no evidence of fracture or dislocation. There are no suspicious bone lesions. Soft tissues are normal. IMPRESSION: No acute findings. Normal [facility] BASIC METABOLIC PANELon 01-0 Anion gap [Moles/Vol] 13 mmol/L Normal 10 - 20 [facility] Comment on above: Performed By: #### B MP #### [address] [address] Calcium [Mass/Vol] 9.5 mg/dL Normal 8.6 - 10.3 [facility] Comment on above: Performed By: #### B MP #### [address] [address] Chloride [Moles/Vol] 104 mmol/L Normal 98 - 107 [facility] Comment on above: Performed By: #### B MP #### [address] [address] Creatinine [Mass/Vol] 0.76 mg/dL Normal 0.50 - 1.05 [facility] Comment on above: Performed By: #### B MP #### [address] [address] GFR- AM. >60 Normal >60 [facility] Comment on above: Result Comment: CALC ULATIONS OF ESTIMATED GFR ARE PERFORMED USING THE MDRD STUDY EQUATION FOR THE IDMS-TRACEABLE CREATININE METHODS. CLIN CHEM 2007;53:766-72 Performed By: #### B MP #### [address] [address] GFR-NON AM. >60 Normal >60 [facility] Comment on above: Performed By: #### B MP #### [address] [address] Glucose [Mass/Vol] 88 mg/dL Normal 74 - 99 [facility] Comment on above: Performed By: #### B MP #### [address] [address] HCO3 (Bld) [Moles/Vol] 27 mmol/L Normal 21 - 32 [facility] Comment on above: Performed By: #### B MP #### [address] [address] Potassium [Moles/Vol] 3.8 mmol/L Normal 3.5 - 5.3 [facility] Comment on above: Performed By: #### B MP #### [address] [address] Sodium [Moles/Vol] 140 mmol/L Normal 136 - 145 [facility] Comment on above: Performed By: #### B MP #### [address] [address] Urea nitrogen [Mass/Vol] 11 mg/dL Normal 6 - 23 [facility] Comment on above: Performed By: #### B MP #### [address] [address] CBCon 10-17-2019 Erythrocyte distribution width (RBC) [Ratio] 12.5 % Normal 11.5 - 14.5 [facility] Comment on above: Performed By: #### C BC #### [address] [address] Hematocrit (Bld) [Volume fraction] 42.6 % Normal 36.0 - 46.0 [facility] Comment on above: Performed By: #### C BC #### [address] [address] Hemoglobin (Bld) [Mass/Vol] 14.5 g/dL Normal 12.0 - 16.0 [facility] Comment on above: Performed By: #### C BC #### [address] [address] MCHC (RBC) [Mass/Vol] 34.1 g/dL Normal 32.0 - 36.0 [facility] Comment on above: Performed By: #### C BC #### [address] [address] MCV (RBC) [Entitic vol] 91 fL Normal 80 - 100 [facility] Comment on above: Performed By: #### C BC #### [address] [address] Platelets (Bld) [#/Vol] 270 10*3/uL Normal 150 - 450 [facility] Comment on above: Performed By: #### C BC #### [address] [address] RBC (Bld) [#/Vol] 4.67 x10E12/L Normal 4.00 - 5.20 [facility] Comment on above: Performed By: #### C BC #### [address] [address] WBC (Bld) [#/Vol] 8.2 10*3/uL Normal 4.4 - 11.3 [facility] Comment on above: Performed By: #### C BC #### [address] [address] [address] HEAD WO CONTRASTon 2019 CT HEAD WO CONTRAST Patient Name: BIBI, LUZ STUDY: CT of the head without contrast INDICATION: dizzy/trauma COMPARISON: None ACCESSION NUMBER(S): [id number] ORDERING CLINICIAN: RASHMI FERRERA TECHNIQUE: A CT [...] Electronically signed by: LILI MONTEIRO MD Normal [facility] HCG,URINEon 10-17-2019 Beta HCG ( test) Ql (U) Negative Normal Negative [facility] Comment on above: Performed By: #### H U #### [place] [address] Provider Note - ED v2on Provider Note - ED v2 Provider Note - ED v2: Chart Review: ED NOTES ED NOTES: ====HPI==== 19 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 Patient states she believes she has a [...] made to minimize errors. Minor errors in grease worker may be present. Please call if questions. 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: Is : no(1) Is : no(1) RESULTS/VITAL [...] at 10/17/2019 01:39 Appearance, Urine CLEAR Specific [place], Urine 1.021 pH, Urine 7.0 Protein, Urine [...] SIGNS: T PRBP SpO2O2(LPM) %FiO2 Method 17-Oct-2019 01:27:[id number]/80 100 room air, no respiratory support 16-Oct-2019 22:16:[id number] /78 99 room air, no respiratory support 16-Oct-2019 22:00:[id number] /78 99 room air, no respiratory support [...] Referenced From Triage - ED 16-Oct-2019 22:16 [facility] Risk Screen - Adult Emergenc yon [...] instruction; written material Cultural Considerationsnone Developmental Considerationsnone Orthodoxy Considerationsnone Other Learnerssignificant other Learning Assessment (Other Learner): Learning Assessment (Other Learner): Other learner availableyes... Learnersignificant other Factors Influencing Readiness to Learninterest in learning Factors that Impact Ability to Learnnone Devices/Methods Used to Communicatenone Learning Preferencesverbal instruction, written material Cultural Considerationsnone Developmental Considerationsnone Orthodoxy Considerationsnone Pressure Injury/TB/Substance: Pressure Injury: Do you have a coughno Substance Use Current or Former Historynever: Cigarette/Tobacco, e-Cigarette/Vaping, Alcohol, Street Drugs Admission Risk Screen: Significant IndicatorsComplete CAGE: CAGE: Is this an injured [place] at a [place] Center [place] [place]/[facility]/[place] no Electronic Signatures: Lisette Junior (RN) (Signed 16-Oct-2019 22:23) Authored: Preferred Language, Advanced Directives, Family Violence Adult, Learning Assessment (Patient), Learning Assessment (Other Learner), Pressure Injury/TB/Substance, CAGE Last Updated: 16-Oct-2019 22:23 by Lisette Junior (RN) [facility] Triage - EDon 10-17-2019 Triage - [...] BMI (kg/m2): 29.674 Calculated BSA (m2) 1.75 [place] Coma Scale: Best Eye Response: (E4) spontaneous Best Motor Response: (M6) obeys commands Best Verbal Response: (V5) oriented Amador Score: 15 Cough lasting greater than 3 weeks: no Patient immunocompromised related to: N/A Travel outside of [facility]: no Allergies: yes Last menstrual period: [...] and spouse/significant other Language: Spoken Language Preferred: Qatari Reading Language Preferred: Qatari 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 CELLS 1+ /HPF Normal [facility] Comment on above: Performed By: #### U AMIC #### [place] [address] TRANSITIONAL EPITH.CELLS Negative Normal [facility] Comment on above: Performed By: #### U AMIC #### [place] [address] WBC (Bld) [#/Vol] 5-20 Abnormal 0-5 [facility] Comment on above: Performed By: #### U AMIC #### [place] [address] URINALYSISon 10-17-2019 Appearance (U) CLEAR Normal CLEAR [facility] Comment on above: Result Comment: This is a corrected result. Previous value was HAZY, verified at 10/17/2019 01:39 Performed By: #### U A #### [address] [address] Color (U) YELLOW Normal STRAW,YELLOW [facility] Comment on above: Result Comment: This is a corrected result. Previous value was Red, verified at 10/17/2019 01:39 Performed By: #### U A #### [address] [address] Bilirubin (U) [Mass/Vol] Negative Normal NEGATIVE [facility] Comment on above: Performed By: #### U A #### [place] [id number] BLOOD SMALL(1+) Abnormal NEGATIVE [facility] Comment on above: Performed By: #### U A #### [place] [id number] Glucose [Mass/Vol] Negative Normal NEGATIVE [facility] Comment on above: Performed By: #### U A #### [place] [address] Ketones Ql (U) Negative Normal NEGATIVE [facility] Comment on above: Performed By: #### U A #### [place] [address] Leukocyte esterase Test strip Ql (U) TRACE Abnormal NEGATIVE [facility] Comment on above: Performed By: #### U A #### [address] [address] Nitrite Ql (U) Negative Normal NEGATIVE [facility] Comment on above: Performed By: #### U A #### [place] [id number] pH (Bld) 7.0 Normal 5.0 - 8.0 [facility] Comment on above: Performed By: #### U A #### [place] [id number] Protein (U) [Mass/Vol] Negative Normal NEGATIVE [facility] Comment on above: Performed By: #### U A #### [place] [id number] Specific gravity (U) [Rel density] 1.021 Normal 1.005 - 1.035 [facility] Comment on above: Performed By: #### U A #### [address] [address] Urobilinogen Qn (U) <2.0 Normal 0.0 - 1.9 [facility] Comment on above: Performed By: #### U A #### [address] [address] URINE CULTURE,BACTERIALon URINE CULTURE,BACTERIAL TEST URINE CULTURE,BACTERIAL WAS CANCELLED, 10/19/2019 16:21 PATIENT DISCHARGED. PATIENT: LUZ MTZ LOCATION: [facility]#: [id number] : 89 AGE: SEX: F ORDERED BY: RASHMI FERRERA SOURCE: URINE COLLECTED: 10/17/19 02:24 ANTIBIOTICS AT JAMIE.: RECEIVED : SITE: Clean Catch/Voided R E S U L T S URINE CULTURE,BACTERIAL CANCELLED 10/19/19 16:21 Normal [facility] Comment on above: Performed By: #### U [facility] #### [facility] [address] [place] [address] XR Foot 3+ Views Righton XR Foot 3+ Views Right Exam Date/Time: 04/28/2019 13:58 EDT Reason for Exam: Pain, Traumatic Report STUDY: XR Foot 3+ Views Right;; 04/28/2019 1:58 pm INDICATION: Pain, Traumatic. COMPARISON: None. ACCESSION NUMBER(S): [id number] ORDERING CLINICIAN: Alex Grubbs FINDINGS: No acute fracture or malalignment. No radiopaque foreign body. IMPRESSION: No acute osseous abnormality FINAL REPORT Dictated: 04/28/2019 2:30 pm Nancy Mills MD Signed (Electronic Signature): 04/28/2019 2:30 pm Signed by: Nancy Mills MD Technologist: JOHNSON Normal [facility] ABO/Rh Echoon 12-25-2018 ABO/Rh E Interp... Positive [facility] Comment on above: Performed By: #### 2 939433 #### [facility] [address] [place] [address] BhCG Quanton 12-25-2018 Beta hCG Qnt <0.6 Normal 0.0-2.9 [facility] Comment on above: Performed By: #### 2 904483 #### [facility] [address] [place] [address] UA Completeon 12-25-2018 Color (U) Yellow Normal Yellow [facility] Comment on above: Performed By: #### 2 266952 #### [facility] [address] [place] [address] Glucose (U) [Mass/Vol] Negative Normal Negative [facility] Comment on above: Performed By: #### 2 280440 #### [facility] [place] [address] Ketones Ql (U) Negative Normal Negative [facility] Comment on above: Performed By: #### 2 966293 #### [facility] [address] [place] [address] RBC (U) [#/Vol] /uL Abnormal 0-3 [facility] Comment on above: Performed By: #### 2 451204 #### [facility] [address] [place] [address] UA Blood 3+ Normal Negative [facility] Comment on above: Performed By: #### 2 784426 #### [facility] [address] [place] [address] UA Bacteria Trace Abnormal None [facility] Comment on above: Performed By: #### 2 167651 #### [facility] [address] [place] [address] UA Clarity Clear Normal Clear [facility] Comment on above: Performed By: #### 2 373859 #### [facility] [address] [place] [address] UA Leuk Est Negative Normal Negative [facility] Comment on above: Performed By: #### 2 538920 #### [facility] [address] [place] [address] UA Mucous Trace Abnormal Trace [facility] Comment on above: Performed By: #### 2 356599 #### [facility] [address] [place] [address] UA Nitrite Negative Normal Negative [facility] Comment on above: Performed By: #### 2 288540 #### [facility] [address] [place] [address] UA pH 8.0 Normal 4.6-8.0 [facility] Comment on above: Performed By: #### 2 162137 #### [facility] [address] [place] [address] UA Protein Negative Normal Negative [facility] Comment on above: Performed By: #### 2 085214 #### [facility] [address] [place] [address] UA Spec Grav 1.012 Normal 1.003-1.030 [facility] Comment on above: Performed By: #### 2 181962 #### [facility] [address] [place] [address] UA Squam Epithelial 0-5 Normal 0-5 [facility] Comment on above: Performed By: #### 2 648575 #### [facility] [address] [place] [address] UA Urobilinogen Negative Normal [facility] Comment on above: Result Comment: Due to a manufacturing issue, low positive urobilinogen results may be fasely positive. Correlate with urine bilirubin and additional clinical/laboratory findings to assess the risk of hemolytic anemia or liver disease. If clinically indicated, repeat testing with an alternate method is available by contacting the laboratory within 24 hours. Performed By: #### 2 164282 #### [facility] [address] [place] [address] UA WBC 5-10 Abnormal 0-5 [facility] Comment on above: Performed By: #### 2 261133 #### [facility] [address] [place] [address] Urobilinogen Qn (U) Negative Normal Negative [facility] Comment on above: Performed By: #### 2 369388 #### [facility] [address] [place] [address] C Urineon 09-05-2018 C Urine Final Report: Light growth of Normal skin den isolated Normal [facility] Comment on above: Performed By: #### 2 805901 #### [facility] [address] [place] [address] .Manual Abson 09-03-2018 Basophil Abs Man 0.0 10x3/ Normal 0.0-0.2 [facility] Comment on above: Order Comment: Order Added by Discern Expert. Performed By: #### 3 [id number] #### [facility] [address] [place] [address] Eos Abs Man 0.0 10x3/ Normal 0.0-0.5 [facility] Comment on above: Order Comment: Order Added by Discern Expert. Performed By: #### 3 [id number] #### [facility] [address] [place] [address] Lymph Abs Man 0.5 10x3/ Low 1.2-3.4 [facility] Comment on above: Order Comment: Order Added by Discern Expert. Performed By: #### 3 [id number] #### [facility] [address] [place] [address] Kidder Abs Man 0.4 10x3/ Normal 0.0-0.7 [facility] Comment on above: Order Comment: Order Added by Discern Expert. Performed By: #### 3 9284533 #### [facility] [address] [place] [address] Segs Abs Man 7.8 10x3/ High 1.4-6.5 [facility] Comment on above: Order Comment: Order Added by Discern Expert. Performed By: #### 3 [id number] #### [facility] [address] [place] [id number] BMPon 09-03-2018 Anion gap [Moles/Vol] 14 mmol/L Normal 10-20 [facility] Comment on above: Performed By: #### 2 864437 #### [facility] [address] [place] [id number] Calcium [Mass/Vol] 8.8 mg/dL Normal 8.5-10.7 [facility] Comment on above: Performed By: #### 2 653451 #### [facility] [place] [address] Chloride [Moles/Vol] 102 mmol/L Normal 98-[address] [facility] Comment on above: Performed By: #### 2 154333 #### [facility] [address] [place] [address] CO2 [Moles/Vol] 24.0 mmol/L Normal 21.0-32.0 [facility] Comment on above: Performed By: #### 2 945685 #### [facility] [address] [place] [address] Creatinine [Mass/Vol] 0.8 mg/dL Normal 0.5-1.1 [facility] Comment on above: Performed By: #### 2 906938 #### [facility] [address] [place] [address] Glucose [Mass/Vol] 100 mg/dL High 70-99 [facility] Comment on above: Performed By: #### 2 287726 #### [facility] [address] [place] [address] Potassium [Moles/Vol] 3.2 mmol/L Low 3.5-5.3 [facility] Comment on above: Performed By: #### 2 242840 #### [facility] [address] [place] [address] Sodium [Moles/Vol] 137 mmol/L Normal 136-145 [facility] Comment on above: Performed By: #### 2 727806 #### [facility] [address] [place] [address] Urea nitrogen [Mass/Vol] 11 mg/dL Normal 6-23 [facility] Comment on above: Performed By: #### 2 448407 #### [facility] [address] [place] [address] Urea nitrogen/Creatinine [Mass ratio] 13.8 ratio Normal 5.4-30.0 [facility] Comment on above: Performed By: #### 2 790864 #### [facility] [address] [place] [address] CBC w/ Auto Diffon 8 Erythrocyte distribution width (RBC) [Ratio] 13.0 % Normal 11.5-14.5 [facility] Comment on above: Performed By: #### 2 223616 #### [facility] [address] [place] [address] Hematocrit (Bld) [Volume fraction] 37.2 % Normal 36.0-48.0 [facility] Comment on above: Performed By: #### 2 463410 #### [facility] [address] [place] [address] Hemoglobin (Bld) [Mass/Vol] 12.7 g/dL Normal 12.0-16.0 [facility] Comment on above: Performed By: #### 2 711623 #### [facility] [address] [place] [address] MCH (RBC) [Entitic mass] 31.2 pg High 27.0-31.0 [facility] Comment on above: Performed By: #### 2 617865 #### [facility] [address] [place] [address] MCHC (RBC) [Mass/Vol] 34.2 g/dL Normal 33.0-37.0 [facility] Comment on above: Performed By: #### 2 684385 #### [facility] [address] [place] [address] MCV (RBC) [Entitic vol] 91.4 fL Normal 78.0-100.0 [facility] Comment on above: Performed By: #### 2 388134 #### [facility] [address] [place] [address] Platelet mean volume (Bld) [Entitic vol] 8.2 fL Normal 7.4-11.0 [facility] Comment on above: Performed By: #### 2 863215 #### [facility] [address] [place] [address] Platelets (Bld) [#/Vol] 201 E3/mcL Normal 130-400 [facility] Comment on above: Performed By: #### 2 844484 #### [facility] [address] [place] [address] RBC (Bld) [#/Vol] 4.07 E6/mcL Normal 3.90-5.40 [facility] Comment on above: Performed By: #### 2 346302 #### [facility] [address] [place] [address] WBC (Bld) [#/Vol] 8.9 E3/mcL Normal 3.6-11.0 [facility] Comment on above: Performed By: #### 2 805214 #### [facility] [address] [place] [address] CT Abdomen/Pelvis w/ Contras ton 09-03-2018 CT Abdomen/Pelvis w/ Contrast Exam Date/Time: 09/03/2018 21:35 EST Reason for Exam: Pain Report STUDY: CT Abdomen/Pelvis w/ Contrast; 09/03/2018 9:35 pm INDICATION: Pain. Pain COMPARISON: No comparison available ACCESSION NUMBER(S): [id number] ORDERING CLINICIAN: Miles Horn TECHNIQUE: CT of [...] by: Joaquin Lobo MD Technologist: JOHN, Paul [facility] Hep Func Panelon 09-03-2018 Albumin [Mass/Vol] 4.3 g/dL Normal 3.4-5.0 [facility] Comment on above: Performed By: #### 2 489907 #### [facility] [place] [address] [place] [address] Albumin/Globulin [Mass ratio] 1.7 {ratio} Normal 1.1-1.9 [facility] Comment on above: Performed By: #### 2 756779 #### [facility] [address] [place] [address] Alk Phos 59 Int._Unit/L Normal 33-139 [facility] Comment on above: Performed By: #### 2 795716 #### [facility] [address] [place] [address] ALT [Catalytic activity/Vol] 18 Int._Unit/L Normal 7-45 [facility] Comment on above: Performed By: #### 2 682961 #### [facility] [address] [place] [address] AST [Catalytic activity/Vol] 18 Int._Unit/L Normal 9-39 [facility] Comment on above: Performed By: #### 2 914678 #### [facility] [address] [place] [id number] Bili Direct 0.16 mg/dL Normal 0.00-0.30 [facility] Comment on above: Performed By: #### 2 [id number] #### [facility] [address] [place] [address] Bili Indirect 0.7 Normal [facility] Comment on above: Performed By: #### 2 [id number] #### [facility] [employer] [address] [place] [address] Bili Total 0.9 mg/dL Normal 0.0-1.2 [facility] Comment on above: Performed By: #### 2 [id number] #### [facility] [address] [place] [address] Globulin (S) [Mass/Vol] 3.0 g/dL Normal 2.0-4.0 [facility] Comment on above: Performed By: #### 2 [id number] #### [place] [address] [place] [address] Protein [Mass/Vol] 6.8 g/dL Normal 6.4-8.2 [facility] Comment on above: Performed By: #### 2 [id number] #### [employer] [employer]on[employer] [address] [place] [address] Influenza A&B Agon 8 Influenzae A Ag Negative Normal Negative [facility] Comment on above: Performed By: #### 2 [id number] #### KOBY Mckeon[address] [address] Influenzae B Ag Negative Normal Negative [facility] Comment on above: Performed By: #### 2 [id number] #### KOBY Mckeon[address] [address] Lactic Acidon 09-03-2018 Lactate [Moles/Vol] 0.8 mmol/L Normal 0.4-2.0 [facility] Comment on above: Performed By: #### 2 [id number] #### KOBYTiny Mckeon[address] [address] Lipase Levelon 09-03-2018 Lipase Lvl 12 Int._Unit/L Normal 9-82 [facility] Comment on above: Performed By: #### 2 [id number] #### KOBYTiny Mckeon[address] [address] Manual Diffon 09-03-2018 Band form neutrophils/100 WBC (Bld) 1 Normal 0-1 [facility] Comment on above: Order Comment: Order Added by Discern Expert. Performed By: #### 2 [id number] #### KOBY MckeonHemo [address] [place] [address] Basophil Man 0 % Normal 0-1 [facility] Comment on above: Order Comment: Order Added by Discern Expert. Performed By: #### 2 [id number] #### [facility] [employer] [address] [place] [address] Eosinophils/100 WBC (Bld) 0 % Normal 0-5 [facility] Comment on above: Order Comment: Order Added by Discern Expert. Performed By: #### 2 [id number] #### KOBY MckeonHemo [address] [place] [address] Lymphocytes/100 WBC (Bld) 6 % Low 14-48 [facility] Comment on above: Order Comment: Order Added by Discern Expert. Performed By: #### 2 [id number] #### KOBY MckeonHemo [address] [place] [address] Monocyte Man 5 % Normal 1-11 [facility] Comment on above: Order Comment: Order Added by Discern Expert. Performed By: #### 2 [id number] #### KOBY MckeonHemo [address] [place] [address] RBC morphology finding Nom (Bld) NORMAL Normal [facility] Comment on above: Order Comment: Order Added by Discern Expert. Performed By: #### 2 [id number] #### KOBY MckeonHemo [address] [place] [address] Segs Man 88 % High 37-75 [facility] Comment on above: Order Comment: Order Added by Discern Expert. Performed By: #### 2 [id number] #### KOBY MckeonHemo [address] [place] [address] TSHon 09-03-2018 TSH Qn 0.89 mcIU/mL Normal 0.30-5.60 [facility] Comment on above: Order Comment: With T4fr Reflex Performed By: #### 2 [id number] #### [facility] [address] [place] [address] U BhCG Qlton 09-03-2018 HCG.beta subunit Qn Negative Normal Neg [facility] Comment on above: Performed By: #### 2 [id number] #### [employer] [employer]on[employer] [address] [place] [address] UA Completeon 09-03-2018 Color (U) Yellow Normal Yellow [facility] Comment on above: Order Comment: Strai ght Cath as needed Performed By: #### 2 [id number] #### [facility] [address] [place] [address] Glucose (U) [Mass/Vol] Negative Normal Negative [facility] Comment on above: Order Comment: Strai ght Cath as needed Performed By: #### 2 [id number] #### [facility] [address] [place] [address] Ketones Ql (U) 1+ Abnormal Negative [facility] Comment on above: Order Comment: Strai ght Cath as needed Performed By: #### 2 [id number] #### [facility] [address] [place] [address] RBC (U) [#/Vol] 10-20 Abnormal 0-3 [facility] Comment on above: Order Comment: Strai ght Cath as needed Performed By: #### 2 [id number] #### [facility] [employer] [address] [place] [address] UA Blood 1+ Abnormal Negative [facility] Comment on above: Order Comment: Strai ght Cath as needed Performed By: #### 2 [id number] #### [facility] [employer] [address] [place] [address] UA Ascorbic Acid 40 mg/dL High <=19 [facility] Comment on above: Order Comment: Strai ght Cath as needed Performed By: #### 2 [id number] #### [facility] [employer] [address] [place] [address] UA Clarity SltCloudy Abnormal Clear [facility] Comment on above: Order Comment: Strai ght Cath as needed Performed By: #### 2 [id number] #### [facility] [employer] [address] [place] [address] UA Leuk Est 1+ Abnormal Negative [facility] Comment on above: Order Comment: Strai ght Cath as needed Performed By: #### 2 [id number] #### [facility] [employer] [address] [place] [address] UA Mucous Trace Abnormal Trace [facility] Comment on above: Order Comment: Strai ght Cath as needed Performed By: #### 2 [id number] #### [facility] [employer] [address] [place] [address] UA Nitrite Negative Normal Negative [facility] Comment on above: Order Comment: Strai ght Cath as needed Performed By: #### 2 [id number] #### [facility] [employer] [address] [place] [address] UA pH 7.0 Normal 4.6-8.0 [facility] Comment on above: Order Comment: Strai ght Cath as needed Performed By: #### 2 [id number] #### [facility] [employer] [address] [place] [address] UA Protein Negative Normal Negative [facility] Comment on above: Order Comment: Strai ght Cath as needed Performed By: #### 2 [id number] #### [facility] [employer] [address] [place] [address] UA Spec Grav 1.015 Normal 1.003-1.030 [facility] Comment on above: Order Comment: Strai ght Cath as needed Performed By: #### 2 [id number] #### [facility] [employer] [address] [place] [address] UA Squam Epithelial 0-5 Normal 0-5 [facility] Comment on above: Order Comment: Strai ght Cath as needed Performed By: #### 2 [id number] #### [employer] [address] [place] [address] UA Urobilinogen Negative Normal [facility] Comment on above: Order [...] within 24 hours. Performed By: #### 2 [id number] #### [facility] [address] [place] [address] UA WBC 20-50 Abnormal 0-5 [facility] Comment on above: Order Comment: Strai ght Cath as needed Performed By: #### 2 [id number] #### [facility] [employer] [address] [place] [address] Urobilinogen Qn (U) Negative Normal Negative [facility] Comment on above: Order Comment: Strai ght Cath as needed Performed By: #### 2 [id number] #### [facility] [address] [place] [address] eGFRon 09-03-2018 GFR/1.73 sq M predicted among non-blacks MDRD (S/P/Bld) [Vol rate/Area] mL/min/{1.73_m2} Normal [facility] Comment on above: Order Comment: Order added by Discern Expert. Performed By: #### 1 [id number] #### [facility] [address] [place] [address] zzplt morphon 09-03-2018 Platelet morphology finding Nom (Bld) NORMAL Normal [facility] Comment on above: Performed By: #### 9 [id number] #### [facility]OBY Rem[facility] [address] [place] [address] Platelets (Bld) [#/Vol] NORMAL Normal [facility] Comment on above: Performed By: #### 9 [id number] #### KOBY RemHemo [address] [place] [address] Vital Signs Date Time Vital Sign Value Performing Clinician Facility 04-02-2023 16:00-0400 Body temperature 97.88 [degF] SUNIL GRAHAM MD [facility] 04-02-2023 16:00-0400 Diastolic Blood Pressure Non-Invasive 66 1 SUNIL GRAHAM MD [facility] 04-02-2023 16:00-0400 Heart rate 77 /min SUNIL GRAHAM MD [facility] 04-02-2023 16:00-0400 Respiratory rate 18 /min SUNIL GRAHAM MD [facility] 04-02-2023 16:00-0400 Systolic Blood Pressure Non-Invasive 110 1 SUNIL GRAHAM MD [facility] 04-02-2023 10:00-0400 Body temperature 97.7 [degF] SUNIL GRAHAM MD [facility] 04-02-2023 10:00-0400 Diastolic Blood Pressure Non-Invasive 48 1 SUNIL GRAHAM MD [facility] 04-02-2023 10:00-0400 Heart rate 81 /min SUNIL GRAHAM MD [facility] 04-02-2023 10:00-0400 Systolic Blood Pressure Non-Invasive 97 1 SUNIL GRAHAM MD [facility] 04-02-2023 00:31-0400 Body temperature 97.88 [degF] SUNIL GRAHAM MD [facility] 04-02-2023 00:31-0400 Diastolic Blood Pressure Non-Invasive 59 1 SUNIL GRAHAM MD [facility] 04-02-2023 00:31-0400 Heart rate 68 /min SUNIL GRAHAM MD [facility] 04-02-2023 00:31-0400 Reason For Taking VItal Signs SUNIL GRAHAM MD [facility] 04-02-2023 00:31-0400 Respiratory rate 16 /min SUNIL GRAHAM MD [facility] 04-02-2023 00:31-0400 Systolic Blood Pressure Non-Invasive 113 1 SUNIL GRAHAM MD [facility] 04-01-2023 16:20-0400 Reason For Taking VItal Signs SUNIL GRAHAM MD [facility] 04-01-2023 08:41-0400 Reason For Taking VItal Signs SUNIL GRAHAM MD [facility] 03-31-2023 23:30-0400 Body temperature 97.88 [degF] SUNIL GRAHAM MD [facility] 03-31-2023 15:25-0400 Body temperature 98.42 [degF] SUNIL GRAHAM MD [facility] 03-31-2023 08:36-0400 Body temperature 98.24 [degF] SUNIL GRAHAM MD [facility] 03-30-2023 07:49-0400 Body height 155 cm SUNIL GRAHAM MD [facility] 03-30-2023 07:49-0400 Body weight 78 kg SUNIL GRAHAM MD [facility] 03-30-2023 07:49-0400 Body weight 32.47 kg/m2 SUNIL GRAHAM MD [facility] 03-07-2023 20:03-0400 Body temperature 98.6 [degF] MARTINEZ NÚÑEZ MD [facility] 03-07-2023 20:03-0400 Diastolic Blood Pressure Non-Invasive 69 1 MARTINEZ NÚÑEZ MD [facility] 03-07-2023 20:03-0400 Heart rate 91 /min MARTINEZ NÚÑEZ MD [facility] 03-07-2023 20:03-0400 Respiratory rate 18 /min MARTINEZ NÚÑEZ MD [facility] 03-07-2023 20:03-0400 Systolic Blood Pressure Non-Invasive 115 1 MARTINEZ NÚÑEZ MD [facility] 03-07-2023 20:02-0400 Body height 155 cm MARTINEZ NÚÑEZ MD [facility] 03-07-2023 20:02-0400 Body weight 79.5 kg MARTINEZ NÚÑEZ MD [facility] 03-07-2023 20:02-0400 Body weight 33.09 kg/m2 MARTINEZ NÚÑEZ MD [facility] 03-06-2023 17:39-0400 Body temperature 98.06 [degF] MARTINEZ NÚÑEZ MD [facility] 03-06-2023 17:39-0400 Diastolic Blood Pressure Non-Invasive 76 1 MARTINEZ NÚÑEZ MD [facility] 03-06-2023 17:39-0400 Heart rate 125 /min MARTINEZ NÚÑEZ MD [facility] 03-06-2023 17:39-0400 Systolic Blood Pressure Non-Invasive 113 1 MARTINEZ NÚÑEZ MD [facility] 03-06-2023 17:37-0400 Body height 155 cm MARTINEZ NÚÑEZ MD [facility] 03-06-2023 17:37-0400 Body weight 79.5 kg MARTINEZ NÚÑEZ MD [facility] 03-06-2023 17:37-0400 Body weight 33.09 kg/m2 MARTINEZ NÚÑEZ MD [facility] 01-26-2023 03:20-0400 Diastolic Blood Pressure Non-Invasive 67 1 MARTINEZ NÚÑEZ MD [facility] 01-26-2023 03:20-0400 Heart rate 107 /min MARTINEZ NÚÑEZ MD [facility] 01-26-2023 03:20-0400 Systolic Blood Pressure Non-Invasive 113 1 MARTINEZ NÚÑEZ MD [facility] 01-26-2023 02:34-0400 Diastolic Blood Pressure Non-Invasive 71 1 MARTINEZ NÚÑEZ MD [facility] 01-26-2023 02:34-0400 Heart rate 95 /min MARTINEZ NÚÑEZ MD [facility] 01-26-2023 02:34-0400 Systolic Blood Pressure Non-Invasive 116 1 MARTINEZ NÚÑEZ MD [facility] 01-26-2023 02:15-0400 Body temperature 98.24 [degF] MARTINEZ NÚÑEZ MD [facility] 01-26-2023 01:46-0400 Diastolic Blood Pressure Non-Invasive 42 1 MARTINEZ NÚÑEZ MD [facility] 01-26-2023 01:46-0400 Heart rate 101 /min MARTINEZ NÚÑEZ MD [facility] 01-26-2023 01:46-0400 Systolic Blood Pressure Non-Invasive 114 1 MARTINEZ NÚÑEZ MD [facility] 01-26-2023 01:16-0400 Respiratory rate 16 /min MARTINEZ NÚÑEZ MD [facility] 01-26-2023 00:59-0400 Body height 155 cm MARTINEZ NÚÑEZ MD [facility] 01-26-2023 00:59-0400 Body weight 77.3 kg MARTINEZ NÚÑEZ MD [facility] 01-26-2023 00:59-0400 Body weight 32.17 kg/m2 MARTINEZ NÚÑEZ MD [facility] 11-18-2022 12:08-0500 Body temperature 98.24 [degF] SUNIL GRAHAM MD [facility] 11-18-2022 12:08-0500 Diastolic Blood Pressure Non-Invasive 82 1 SUNIL GRAHAM MD [facility] 11-18-2022 12:08-0500 Heart rate 108 /min SUNIL GRAHAM MD [facility] 11-18-2022 12:08-0500 Respiratory rate 18 /min SUNIL GRAHAM MD [facility] 11-18-2022 12:08-0500 Systolic Blood Pressure Non-Invasive 103 1 SUNIL GRAHAM MD [facility] 10-14-2022 11:01-0500 Body weight 80.06 kg Gretel Quintana MD Work Phone: [facility] 10-14-2022 11:01-0500 Diastolic blood pressure 56 mm[Hg] Gretel Quintana MD Work Phone: [facility] 10-14-2022 11:01-0500 Respiratory rate 18 /min Gretel Quintana MD Work Phone: [facility] 10-14-2022 11:01-0500 Systolic blood pressure 110 mm[Hg] Gretel Quintana MD Work Phone: [facility] 08-19-2022 13:06-0500 Body weight 85.5 kg Braulio Hollingsworth MD Work Phone: [facility] 08-19-2022 13:06-0500 Diastolic blood pressure 82 mm[Hg] Braulio Hollingsworth MD Work Phone: [facility] 08-19-2022 13:06-0500 Systolic blood pressure 102 mm[Hg] Braulio Hollingsworth MD Work Phone: [facility] 08-09-2022 18:09-0400 Diastolic blood pressure 74 mm[Hg] No Primary Care Physician [facility] Work Phone: 08-09-2022 18:09-0400 Heart rate 107 /min No Primary Care Physician [facility] Work Phone: 08-09-2022 18:09-0400 Respiratory rate 18 /min No Primary Care Physician [facility] Work Phone: 08-09-2022 18:09-0400 SaO2% (BldA) [Mass fraction] 94 % No Primary Care Physician [facility] Work Phone: 08-09-2022 18:09-0400 Systolic blood pressure 120 mm[Hg] No Primary Care Physician [facility] Work Phone: 08-09-2022 13:51-0400 Body height 154.94 cm No Primary Care Physician [facility] Work Phone: 08-09-2022 13:51-0400 Body mass index (BMI) [Ratio] 35.9 kg/m2 No Primary Care Physician [facility] Work Phone: 08-09-2022 13:51-0400 Body temperature 98.2 [degF] No Primary Care Physician [facility] Work Phone: 08-09-2022 13:51-0400 Body weight 86.4 kg No Primary Care Physician [facility] Work Phone: 08-04-2022 13:54-0400 Diastolic blood pressure 76 mm[Hg] Melania Mitchell MD Work Phone: [facility] 08-04-2022 13:54-0400 Heart rate 100 /min Melania Mitchell MD Work Phone: [facility] 08-04-2022 13:54-0400 Respiratory rate 16 /min Melania Mitchell MD Work Phone: [facility] 08-04-2022 13:54-0400 SaO2% (BldA) [Mass fraction] 98 % Melania Mitchell MD Work Phone: [facility] 08-04-2022 13:54-0400 Systolic blood pressure 102 mm[Hg] Melania Mitchell MD Work Phone: [facility] 08-04-2022 10:48-0400 Body height 154.9 cm Melania Mitchell MD Work Phone: [facility] 08-04-2022 10:48-0400 Body mass index (BMI) [Ratio] 30.23 kg/m2 Melania Mitchell MD Work Phone: [facility] 08-04-2022 10:48-0400 Body temperature 98.2 [degF] Melania Mitchell MD Work Phone: [facility] 08-04-2022 10:48-0400 Body weight 72.58 kg Melania Mitchell MD Work Phone: [facility] 07-08-2022 15:30-0400 Body temperature 98.2 [degF] No Primary Care Physician [facility] Work Phone: 07-08-2022 15:30-0400 Diastolic blood pressure 78 mm[Hg] No Primary Care Physician [facility] Work Phone: 07-08-2022 15:30-0400 Heart rate 89 /min No Primary Care Physician [facility] Work Phone: 07-08-2022 15:30-0400 Respiratory rate 14 /min No Primary Care Physician [facility] Work Phone: 07-08-2022 15:30-0400 SaO2% (BldA) [Mass fraction] 98 % No Primary Care Physician [facility] Work Phone: 07-08-2022 15:30-0400 Systolic blood pressure 124 mm[Hg] No Primary Care Physician [facility] Work Phone: 06-30-2022 00:36-0400 Diastolic blood pressure 76 mm[Hg] No Primary Care Physician [facility] Work Phone: 06-30-2022 00:36-0400 Heart rate 79 /min No Primary Care Physician [facility] Work Phone: 06-30-2022 00:36-0400 Respiratory rate 16 /min No Primary Care Physician [facility] Work Phone: 06-30-2022 00:36-0400 SaO2% (BldA) [Mass fraction] 96 % No Primary Care Physician [facility] Work Phone: 06-30-2022 00:36-0400 Systolic blood pressure 113 mm[Hg] No Primary Care Physician [facility] Work Phone: 06-29-2022 23:48-0400 Body temperature 98.9 [degF] No Primary Care Physician [facility] Work Phone: 06-29-2022 18:00-0400 Body mass index (BMI) [Ratio] 33 kg/m2 No Primary Care Physician [facility] Work Phone: 06-29-2022 18:00-0400 Body weight 79.37 kg No Primary Care Physician [facility] Work Phone: Encounters Encounter Date Encounter Type Care Provider Facility Start: 08-01-2025 ambulatory No Primary Care Physici an Facility:[facility] Start: 07-09-2025 End: 07-09-2025 ambulatory No Primary Care Physician Facility:[facility] Start: 07-09-2025 End: 07-09-2025 ambulatory No Primary Care Physician Facility:[facility] Start: 07-03-2025 End: 07-03-2025 ambulatory No Primary Care Physician Facility:[facility] Start: 07-03-2025 End: 07-03-2025 ambulatory No Primary Care Physician Facility:[facility] Start: 06-26-2025 End: 06-26-2025 ambulatory [facility]A [facility] Start: 06-20-2025 End: 06-20-[address] [facility] Start: 06-06-2025 End: 06-06-2025 ambulatory Rama Stuart Facility:[facility] Start: 05-30-2025 End: 05-30-2025 ambulatory No Primary Care Physician Facility:[facility] Start: 05-30-2025 End: 05-30-2025 ambulatory Rama Stuart Facility:[facility] Start: 05-14-2025 End: 05-14-2025 ambulatory Rama Stuart Facility:[facility] Start: 05-14-2025 End: 05-14-2025 ambulatory No Primary Care Physician Facility:[facility] Start: 05-07-2025 End: 05-07-2025 ambulatory No Primary Care Physician Facility:[facility] Start: 05-07-2025 End: 05-07-2025 ambulatory No Primary Care Physician Facility:[facility] Start: 04-09-2025 End: 04-09-2025 ambulatory No Primary Care Physician Facility:[facility] Start: 04-09-2025 End: 04-09-2025 ambulatory Remedios Jose [employer]INTER Facility:[facility] Start: 03-15-2025 End: 03-15-2025 ambulatory Remedios Jose WALLPAPER PRINTER Facility:[facility] Start: 03-13-2025 End: 03-13-2025 ambulatory No Primary Care Physician Facility:[facility] Start: 03-13-2025 End: 03-13-2025 ambulatory Remedios [place] WALLPAPER PRINTER Facility:[facility] Start: 01-02-2025 End: 01-02-2025 Emergency department patient visit Mendez Gardner Facility:[facility] Start: 08-03-2024 End: 08-18-2024 ambulatory KIRSTEN MAST SHOTBLAST OPERATOR-[employer] CUSTODIAN Facility:[facility] Start: 08-03-2024 End: 08-18-2024 Physical therapy management KIRSTEN MAST SHOTBLAST OPERATOR-[employer] CUSTODIAN [facility] Start: 02-18-2024 End: 02-19-2024 ambulatory KIRSTEN MAST SHOTBLAST OPERATOR-[employer]IDING [employer] CUSTODIAN Facility:[facility] Start: 02-18-2024 End: 02-18-2024 Patient encounter procedure KIRSTEN MAST SHOTBLAST OPERATOR-[employer] CUSTODIAN [facility] Start: 10-15-2023 End: 10-16-2023 ambulatory OSMAN TORRES PMHNP-BC Facility:[facility] Start: 10-15-2023 End: 10-15-2023 Patient encounter procedure OSMAN TORRES PMHNP-BC [facility] Start: 03-30-2023 End: 04-02-2023 Evaluation and management of inpatient MARTINEZ NÚÑEZ MD Facility:[facility] Start: 03-30-2023 End: 04-02-2023 Evaluation and management of inpatient SUNIL GRAHAM MD [facility] Start: 03-18-2023 End: 03-18-2023 ambulatory MARTINEZ NÚÑEZ MD Facility:[facility] Start: 03-15-2023 End: 03-16-2023 ambulatory SUNIL GRAHAM MD Facility:[facility] Start: 03-15-2023 End: 03-15-2023 Patient encounter procedure SUNIL GRAHAM MD [facility] Start: 03-09-2023 End: 03-14-2023 ambulatory LONG DICKERSON MD Facility:[facility] Start: 03-09-2023 End: 03-10-2023 ambulatory LONG DICKERSON MD Facility:[facility] Start: 03-09-2023 End: 03-13-2023 Outreach Lab LONG DICKERSON MD [facility] Start: 03-09-2023 End: 03-09-2023 Patient encounter procedure LONG DICKERSON MD [facility] Start: 03-07-2023 End: 03-07-2023 ambulatory MARTINEZ NÚÑEZ MD Facility:[facility] Start: 03-07-2023 End: 03-07-2023 SAME DAY STAY MARTINEZ NÚÑEZ MD [facility] Start: 03-06-2023 End: 03-06-2023 ambulatory MARTINEZ NÚÑEZ MD Facility:[facility] Start: 03-06-2023 End: 03-06-2023 SAME DAY STAY MARTINEZ NÚÑEZ MD [facility] Start: 01-26-2023 End: 01-26-2023 SAME DAY STAY MARTINEZ NÚÑEZ MD [facility] Start: 01-25-2023 End: 01-25-2023 Patient encounter procedure SUNIL GRAHAM MD [facility] Start: 01-19-2023 End: 01-19-2023 Patient encounter procedure SUNIL GRAHAM MD [facility] Start: 01-05-2023 End: 01-05-2023 Patient encounter procedure SUNIL GRAHAM MD [facility] Start: 12-03-2022 Refill Tad kirk DO Work Phone: [facility] Comment on above: Med Change Request Start: 11-18-2022 End: 11-18-2022 SAME DAY STAY SUNIL GRAHAM MD [facility] Start: 11-13-2022 End: 11-13-2022 Patient encounter procedure 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 SHOTBLAST OPERATOR-[employer] CUSTODIAN [facility] Start: 10-29-2022 End: 10-29-2022 ambulatory CHEKO MCCLELLAND Facility:[facility] Start: 10-14-2022 End: 10-14-2022 ambulatory GRETEL QUINTANA Facility:[facility] Start: 10-14-2022 End: 10-14-2022 Patient encounter procedure Gretel Quintana MD Work Phone: Obstetrics/Gynecolog y Comment on above: Encounter for superv ision of normal first in second trimester (Primary Dx); Need for influenza vaccination; 15 weeks gestation of Start: 09-21-2022 End: 09-21-2022 ambulatory FLORENCE HEWITT Facility:[facility] Start: 09-17-2022 End: 09-17-2022 ambulatory BRAULIO HOLLINGSWORTH Facility:[facility] Start: 08-21-2022 ambulatory Braulio Hollingsworth MD Work Phone: Obstetrics/Gynecolog y Comment on above: Luz oliveira Start: 08-19-2022 End: 08-19-2022 ambulatory BRAULIO HOLLINGSWORTH Facility:[facility] Start: 08-19-2022 End: 08-19-2022 Patient encounter procedure Braulio Hollingsworth MD Work Phone: Obstetrics/Gynecolog y Comment on above: Encounter for superv ision of normal first in first trimester (Primary Dx) with uncer tain dates in first trimester (Primary Dx) Start: 08-14-2022 End: 08-14-2022 ambulatory TANESHA FRANKLINLex Facility:[facility] Start: 08-10-2022 Telephone encounter Braulio connolly MD Work Phone: Obstetrics/Gynecolog y Comment on above: Patient Update Start: 08-09-2022 End: 08-09-2022 Emergency department patient visit No Primary Care Physician [facility] Start: 08-04-2022 End: 08-04-2022 Emergency department patient visit [facility] Start: 08-04-2022 End: 08-04-2022 Emergency department patient visit Melania Mitchell MD Work Phone: [facility] Comment on above: Threatened miscarria ge in early (Primary Dx) Start: 07-20-2022 End: 07-20-2022 ambulatory No Primary Care Physician [facility] Work Phone: Start: 07-20-2022 End: 07-20-2022 Discharged Recurring No Primary Care Physician [facility] Start: 07-20-2022 Registered Recurring No Primary Care Physician [facility] Start: 07-09-2022 Telephone encounter Ledy wang MD Work Phone: [facility] [facility] Comment on above: Missed Appointment ( #1 No Show, #1 Letter) Start: 07-08-2022 End: 07-08-2022 Patient encounter procedure No Primary Care Physician [facility] Start: 06-29-2022 End: 06-30-2022 Emergency department patient visit No Primary Care Physician [facility] Start: 05-31-2022 End: 05-31-2022 Emergency department patient visit HIWOT HUDSON Facility:[facility] Start: 12-31-2021 End: 12-31-2021 Emergency department patient visit JAYDE YEAGER Facility:[facility] Start: 01-27-2021 End: 01-27-2021 ambulatory Alex [phone] Lynsey [phone] Facility:[facility] Start: 12-25-2018 Patient encounter procedure Facility:[id number] [...] Speci men Type: BLOOD SPECIMEN Ordering Facility: [facility] Address: [address] [place], [place] [address] Performed By: #### T SPN #### [facility] [id number] [address] [place] [address] [place] Start: 08-19-2022 Antibody [...] Speci men Type: BLOOD SPECIMEN Ordering Facility: [facility] Address: [place] [address] Performed By: #### T SPN #### [facility] CLIA [id number] [address] [place] [address] [place] Start: 08-09-2022 Transvaginal [...] of wisdom tooth (body structure) 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 SHOTBLAST OPERATOR-RIDING SILKS CUSTODIAN Plan of Treatment Date Care Activity Detail Author Start: 08-19-2025 PAP TESTING PAP TESTING [facility] Start: 05-14-2024 PAP TESTING PAP TESTING [facility] Start: 08-19-2023 CHLAMYDIA SCREENING (18-24) CHLAMYDIA SCREENING (18-24) [facility] Start: 08-19-2023 GC (GONORRHEA) SCREE SAADIA (18-24) GC (GONORRHEA) SCREENING (18-24) [facility] Start: 10-14-2022 End: 10-14-2023 OBSTETRIC ULTRASOUND WHI OBSTETRIC ULTRASOUND WHI Anc Imaging Routine Encounter for supervision of normal first in second trimester Expected: 10/14/2022, Expires: 10/14/2023 [facility] Work Phone: Comment on above: Expected: 10/14/2022 , Expires: 10/14/2023 Start: 10-11-2022 DEPRESSION ASSESSMENT DEPRESSION ASS ESSMENT [facility] Start: 08-19-2022 End: 10-19-2022 Hepatitis B virus surface Ab [Presence] in Serum by Immunoassay [facility] Work Phone: Comment on above: Expected: 08/19/2022 , Expires: 10/19/2022 Start: 08-19-2022 End: 10-19-2022 Hepatitis C virus Ab [Presence] in Serum [facility] Work Phone: Comment on above: Expected: 08/19/2022 , Expires: 10/19/2022 Start: 08-19-2022 End: 10-19-2022 HIV 1+2 Ab [Presence] in Serum or Plasma by Immunoassay [facility] Work Phone: Comment on above: Expected: 08/19/2022 , Expires: 10/19/2022 Start: 08-19-2022 End: 08-19-2023 NUCHAL TRANSLUCENCY WHI NUCHAL TRANSLUCENCY WHI Anc Imaging Routine Encounter for supervision of normal first in first trimester Expected: 08/19/2022, Expires: 08/19/2023 [facility] Work Phone: Comment on above: Expected: 08/19/2022 , Expires: 08/19/2023 Start: 08-19-2022 End: 10-19-2022 RUBELLA IGG AB [facility] Work Phone: Comment on above: Expected: 08/19/2022 , Expires: 10/19/2022 Start: 08-19-2022 End: 10-19-2022 SYPHILIS TOTAL W/REFLEX [facility] Work Phone: Comment on above: Expected: 08/19/2022 , Expires: 10/19/2022 Start: 07-08-2022 Patient referral [facility] Work Phone: Start: 06-11-2022 Influenza vaccination INFLUENZA (#1) [facility] Start: 05-14-2022 CHLAMYDIA SCREENING (18-24) CHLAMYDIA SCREENING (18-24) [facility] Start: 05-14-2022 GC (GONORRHEA) SCRELily SAADIA (18-24) GC (GONORRHEA) SCREENING (18-24) [facility] Start: 05-11-2022 Influenza vaccination Flu vaccine (# 1) [facility] Start: 05-07-2022 Urine microalbumin profile DTAP,TDAP,TD (7 - Td or Tdap) [facility] Start: 10-11-2021 DEPRESSION ASSESSMENT DEPRESSION ASS ESSMENT [facility] Start: 05-17-2021 COVID-19 VACCINE (3 - Booster for Pfizer series) COVID-19 VACCINE (3 - Booster for Pfizer series) [facility] Start: 2020 Screening for malign ant neoplasm of cervix Pap smear [facility] Start: 2018 DTaP/Tdap/Td vaccine (1 - Tdap) DTaP/Tdap/Td vaccine (1 - Tdap) [facility] Start: 2017 HEPATITIS C SCREENING HEPATITIS C SC REENING [facility] Start: 2017 Hepatitis C screening Hepatitis C sc reen [facility] Start: 2017 HIV SCREENING HIV SCREENING [facility] Start: 2015 Screening for Chlamy jarod trachomatis Chlamydia/GC screen [facility] Start: 2014 HIV screening HIV screen [facility] Start: 2013 PEDS TO ADULT TRANSI TION ANNUAL ASSESSMENT PEDS TO ADULT TRANSITION ANNUAL ASSESSMENT [facility] Start: 2011 Depression Screen Depression Screen [facility] Start: 2011 PEDS TO ADULT TRANSI TION INITIAL DISCUSSION PEDS TO ADULT TRANSITION INITIAL DISCUSSION [facility] Start: 2010 HPV vaccine (1 - 2-d ose series) HPV vaccine (1 - 2-dose series) [facility] Start: 2009 MENINGOCOCCAL B: Consider based on risk (1 of 2 - Risk Bexsero 2-dose series) MENINGOCOCCAL B: Consider based on risk (1 of 2 - Risk Bexsero 2-dose series) [facility] Start: 2000 Varicella vaccine (1 of 2 - 2-dose childhood series) Varicella vaccine (1 of 2 - 2-dose childhood series) [facility] Start: 04-09-2000 COVID-19 VACCINE (#1) COVID-19 VACCI NE (#1) [facility] Bacteria identified in Urine by Culture URINE CULTURE Microbiology Routine Encounter for supervision of normal first in first trimester 08/19/2022 2:08 PM [facility] Work Phone: Chlamydia trachomatis+Neisseria gonorrhoeae DNA [Presence] in Unspecified specimen by CHICHO with probe detection GC/CHLAMYDIA DNA DET Lab Routine Encounter for supervision of normal first in first trimester 08/19/2022 2:13 PM [facility] Work Phone: PAP FLUID CERVICAL SCREENING PAP FLUID CERVICAL SCREENING Lab Routine Encounter for supervision of normal first in first trimester Ordered: 08/19/2022 [facility] Work Phone: Comment on above: Ordered: 08/19/2022 Patient Education [facility] Work Phone: Patient referral [facility] Work Phone: [facility] Immunizations Immunization Date Immunization Notes Care Provider [facility] 08-24-2023 tetanus toxoid, redu ibis diphtheria toxoid, and acellular pertussis vaccine, adsorbed KIRSTEN MAST SHOTBLAST OPERATOR-RIDING SILKS CUSTODIAN [facility] 02-01-2023 tetanus toxoid, redu ibis diphtheria toxoid, and acellular pertussis vaccine, adsorbed; Translations: [Boostrix (Tdap)] MARTINEZ NÚÑEZ MD [facility] Comment on above: Result Comment: [facility]- [id number] 10-14-2022 influenza virus vacc ine, unspecified formulation KIRSTEN MAST SHOTBLAST OPERATOR-RIDING SILKS CUSTODIAN [facility] 10-14-2022 influenza, injectabl e, quadrivalent, contains preservative Gretel Quintana MD Work Phone: [facility] 03-22-2021 SARS-CoV-2 mRNA (tozinameran) vaccine K[facility] SHOTBLAST OPERATOR-[facility] 03-01-2021 SARS-CoV-2 mRNA (tozinameran) vaccine [facility] SHOTBLAST OPERATOR[facility] 09-20-2020 influenza virus vacc ine, unspecified formulation [facility] 09-08-2019 influenza virus vacc ine, unspecified formulation [facility]OT[facility] 03-02-2018 varicella virus vaccine [facility] SHOTBLAST OPERATOR-[facility] 07-26-2017 influenza virus vacc ine, unspecified formulation [facility] 05-11-2017 meningococcal polysaccharide (groups A, C, Y and W-135) diphtheria toxoid conjugate vaccine (MCV4P) [facility] 02-24-2016 meningococcal polysaccharide (groups A, C, Y and W-135) diphtheria toxoid conjugate vaccine (MCV4P) Ledy Vaughn MD Work Phone: [facility] 07-05-2014 influenza virus vacc ine, unspecified formulation [facility] SHOTBLAST OPERATOR-[facility] 07-05-2014 influenza, injectabl e, quadrivalent, preservative free Ledy Vaughn MD Work Phone: [facility] Work Phone: 02-20-2014 human papilloma viru s vaccine, quadrivalent Ledy Vaughn MD Work Phone: [facility] 02-20-2014 Human Papillomavirus Quadval KIRSTEN MAST SHOTBLAST OPERATOR-RIDING SILKS CUSTODIAN [facility] 05-18-2013 human papilloma viru s vaccine, quadrivalent Ledy Vaughn MD Work Phone: [facility] Work Phone: 05-07-2012 human papilloma viru s vaccine, quadrivalent Ledy Vaughn MD Work Phone: [facility] 05-07-2012 Meningococcal, MCV4, unspecified conjugate formulation(groups A, C, Y and W-135) Ledy Vaughn MD Work Phone: [facility] 05-07-2012 tetanus toxoid, redu ibis diphtheria toxoid, and acellular pertussis vaccine, adsorbed Ledy Vaughn MD Work Phone: [facility] 05-07-2012 varicella virus vaccine Chayo Harris MD Work Phone: [facility] 01-09-2005 diphtheria, tetanus toxoids and acellular pertussis vaccine Ledy Vaughn MD Work Phone: [facility] 01-09-2005 measles, mumps and rubella virus vaccine Ledy Vaughn MD Work Phone: [facility] 01-09-2005 poliovirus vaccine, inactivated Ledy Vaughn MD Work Phone: [facility] 04-26-2001 pneumococcal conjuga te vaccine, 7 valent Ledy Vaughn MD Work Phone: [facility] 02-17-2001 diphtheria, tetanus toxoids and acellular pertussis vaccine Ledy Vaughn MD Work Phone: [facility] Work Phone: 02-17-2001 haemophilus influenz ae type b vaccine, HbOC conjugate Ledy Vaughn MD Work Phone: [facility] Work Phone: 02-17-2001 pneumococcal conjuga te vaccine, 7 valent Ledy Vaughn MD Work Phone: [facility] 11-03-2000 measles, mumps and rubella virus vaccine Ledy Vaughn MD Work Phone: [facility] Work Phone: 11-03-2000 measles/mumps/rubell a virus vaccine KIRSTEN CISNEROS SHOTBLAST OPERATOR-RIDING SILKS CUSTODIAN [facility] 11-03-2000 varicella virus vaccine Chayo Harris MD Work Phone: [facility] Work Phone: 05-05-2000 diphtheria, tetanus toxoids and acellular pertussis vaccine Ledy Vaughn MD Work Phone: [facility] Work Phone: 05-05-2000 haemophilus influenz ae type b vaccine, HbOC conjugate Ledy Vaughn MD Work Phone: [facility] Work Phone: 05-05-2000 hepatitis B vaccine, pediatric or pediatric/adolescent dosage Ledy Vaughn MD Work Phone: [facility] Work Phone: 05-05-2000 poliovirus vaccine, inactivated Ledy Vaughn MD Work Phone: [facility] Work Phone: 03-03-2000 diphtheria, tetanus toxoids and acellular pertussis vaccine Ledy Vaughn MD Work Phone: [facility] Work Phone: 03-03-2000 haemophilus influenz ae type b vaccine, HbOC conjugate Ledy Vaughn MD Work Phone: [facility] Work Phone: 03-03-2000 poliovirus vaccine, inactivated Ledy Vaughn MD Work Phone: [facility] Work Phone: 1999 diphtheria, tetanus toxoids and acellular pertussis vaccine Ledy Vaughn MD Work Phone: [facility] Work Phone: 1999 haemophilus influenz ae type b vaccine, HbOC conjugate Ledy Vaughn MD Work Phone: [facility] Work Phone: 1999 hepatitis B vaccine, pediatric or pediatric/adolescent dosage Ledy Vaughn MD Work Phone: [facility] Work Phone: 1999 poliovirus vaccine, inactivated Ledy Vaughn MD Work Phone: [facility] Work Phone: 1999 hepatitis B pediatri c vaccine KIRSTEN BLAYNE SHOTBLAST OPERATOR-RIDING SILKS CUSTODIAN [facility] 2000 hepatitis B vaccine, pediatric or pediatric/adolescent dosage Ledy Vaughn MD Work Phone: [facility] Work Phone: Payers Date Payer Category Payer Self-pay [id number] 2025 Unknown [id number] 2023 Unknown [id number] 2021 Unknown [id number] 2021 Unknown [id number] 2021 Unknown [id number] 1999 Unknown [id number] 2.16. 840.1.999516.3.579.2.356 1999 Unknown [id number] 2.16. 840.1.326752.3.579.2.356 1999 Unknown [id number] 2.16.8 40.1.590026.3.579.2.419 1999 Unknown [id number] 2.16. 840.1.521839.3.579.2.668 1999 Unknown [id number] 2.16.8 40.1.732319.3.579.2.627 1999 Unknown [id number] 2.16.8 40.1.938438.3.579.2.627 1999 Unknown [id number] 2.16.8 40.1.117592.3.579.2.627 1999 Unknown [id number] 2.16.8 40.1.681256.3.579.2.627 1999 Unknown [id number] 2.16.8 40.1.684539.3.579.2.627 1999 Unknown [id number] 2.16.8 40.1.709014.3.579.2.627 1999 Unknown [id number] 2.16.8 40.1.386056.3.579.2.627 1999 Unknown [id number] 2.16.8 40.1.543759.3.579.2.627 1999 Unknown [id number] 2.16.8 40.1.188673.3.579.2.627 1999 Unknown [id number] 2.16.8 40.1.810563.3.579.2.627 1999 Unknown [id number] 2.16. 840.1.579231.3.579.2.479 1999 Unknown [id number] 2.16 840.1.934875.3.579.2479 1999 Unknown [id number] 2.16 840.1.345060.3.579.2479 Unknown [id number] Unknown [facility] [id number] Unknown [facility] [id number] Unknown [facility] [id number] Unknown [id number] 2.16.8 40.1.464234.3.579.2.462 Unknown [id number] 2.16.8 40.1.369199.3.579.2.462 Unknown [id number] 2.16.8 40.1.048908.3.579.2.462 Unknown [id number] 2.16.8 40.1.809448.3.579.2.462 Unknown [id number] 2.16.8 40.1.917201.3.579.2.462 Unknown [id number] 2.16.8 40.1.661346.3.579.2.462 Unknown [id number] 2.16.8 40.1.405844.3.579.2.462 Unknown [id number] 2.16.8 40.1.924197.3.579.2.462 Unknown [id number] 2.16.8 40.1.725706.3.579.2.462 Unknown [id number] 2.16.8 40.1.620270.3.579.2.462 Unknown [id number] 2.16.8 40.1.415956.3.579.2.462 Unknown [id number] 2.16.8 40.1.327419.3.579.2.462 Unknown [id number] 2.16.8 40.1.659417.3.579.2.462 Unknown [id number] 2.16.8 40.1.182822.3.579.2.462 Unknown [id number] 2.16.8 40.1.893803.3.579.2.462 Unknown [id number] 2.16.8 40.1.950599.3.579.2.462 Unknown [id number] 2.16.8 40.1.037343.3.579.2.462 Unknown [id number] 2.16.8 40.1.822311.3.579.2.462 Unknown [id number] 2.16.8 40.1.592810.3.579.2.462 Social History Date Type Detail Facility Start: 12-31-2021 End: 07-28-2024 Tobacco smoking status NHIS Never smoked tobacco [facility] Start: 12-31-2021 End: 08-19-2022 Tobacco use and exposure Smokeless tobacco non-user [facility] Start: 12-31-2021 End: 10-14-2022 Alcohol intake Ex-drinker (finding) [facility] Start: 06-27-2013 End: 08-19-2022 Tobacco Comment dad smokes outside [facility] Start: 2000 Sex Assigned At Female C [facility] Start: 06-28-2022 End: 08-19-2022 Exposure to SARS-CoV-2 (event) Not sure [facility] Start: 2000 Sex Assigned At Not on file S [employer] Work Phone: Start: 08-09-2022 End: 08-09-2022 Tobacco smoking status NHIS Unknown if ever smoked [facility] Work Phone: Start: 10-24-2020 Spouse/ Signif icant Other [facility] Work Phone: Start: 07-12-2022 [facility] Goals Date Patient Goal Desired Activity /State [...] bilat biceps and triceps [facility] 04-02-2023 Functional Status Rooming in [facility] 04-01-[address] [facility] 04-01-2023 Functional Status Independent [facility] 04-01-[address] [facility] 03-30-2023 Functional Status Home independently [facility] 03-07-2023 Functional Status Ambulating in room [facility] Mental Status Date Assessment Result Facility 03-07-2023 [...] 02/19/2024 1:39:46 AM Ordering Provider: KIRSTEN CISNEROS [facility] 10-15-2023 Evaluation + Plan note Diagnostic Tests PendingVitamin B12 Level 10/15/23Folate Level 10/15/23 Future Scheduled TestsGlucose Level 07/20/23Lipid Profile 07/20/23 [facility] 04-02-2023 Evaluation + Plan note Extrac barbara from: Title:Clinical Document Author:LONG DICKERSON MD Date:04/02/23 Subjective Comfortable with oral Motrin Lochia small. Baby is eating well per bottle Stayed overnight due to elevated bili levels in baby Objective Looks very well. Independent in room. Abdomen: Soft, uterus firm at U- 2 Extremities: Nontender with 1+ edema VITALS VykshzNagrSWYhjmfYDZxT6FIT0JhbkGn(kg) 04/02 00:3136.6--463853--81/20 78.0 04/01 16:2036.5--7916---- 04/01 08:4136.1--8114---- 03/31 23:3036.6--8416---- [...] q6h, 03/30/23 19:48:00 EDT Problems (4) Anxiety ([id number]) Body mass index 30+ - obesity (209553567) (806604383) UTI (urinary tract infection) ([id number]) ASSESSMENT/PLAN: PPD #2 after . Doing very well. Home today. Extracted from: Title:Clinical Document Author:LONG DICKERSON MD Date:03/31/23 Subjective Comfortable with oral Motrin Lochia small. Baby is nursing well. . Objective Looks very well. Independent in room. CVS: RRR Lungs: CTA B Abdomen: Soft, uterus firm at U- 1 Extremities: Nontender with 1+ edema VITALS WmskayAosyDAXzdijAJYlA2RUC9WlelOv(kg) 03/31 08:3636.8--7816----03/30 78.0 03/31 05:4936--8216---- 03/31 02:00 RA 03/30 20:15----12999--CJ 03/30 20:00----8018--RA 24 Hr Tmax: 36.8 at [...] q6h, 03/30/23 19:48:00 EDT Problems (4) Anxiety ([id number]) Body mass index 30+ - obesity (720526800) (460868939) UTI (urinary tract infection) ([id number]) ASSESSMENT/PLAN: PPD #1 after [employer] delivery [...] SYSTEMS: All negative ACTIVE PROBLEMS: (4) Anxiety ([id number]) Body mass index 30+ - obesity (409462184) (494613995) UTI (urinary tract infection) ([id number]) ALLERGIES: (1) CeleXA FAMILY HISTORY: No inheritable diseases. SOCIAL HISTORY: . Denies tobacco use Denies alcohol use. No illicit drug use. PHYSICAL EXAM: VITALS: OsxjbbWeviHAXncuoMANwO8HHZ2KjeaKm(kg) 03/30 10:5735.6--7518----03/30 78.0 03/30 10:0535.9 03/30 09:0536.1 [...] Date:04/20/2023 02:00:00 PM Scheduled Provider:SUNIL GRAHAM MD Location:[facility] Appointment Type:[facility] 06-22-2023 Note day #2 progress [...] MARTINEZ NÚÑEZ MD on 04/01/2023 09:01 AM [facility]2023 Hospital Discharge instructions Patient Education [...] work with your health care provider or compensation consultant. If you are not : ?Avoid [...] about methods of control (contraception). Medicines Take hiom-pal-nqbbnai and prescription medicines only as told by [...] 07/24/2008 Document Revised: 09/30/2018 Document Reviewed: 07/11/2018 [employer] Patient Education 2020 [employer] [place]. 03/31/2023 12:34:52 7b- Depression and Blues (07/2020) [...] psychosis. Often, a screening tool called the Lincoln Depression Scale is used to diagnose depression [...] music. Avoid alcohol. Ask for help with rugby union footballer, cooking, grocery shopping, or running errands as needed. Do nottry to do everything. Talk to people close to you about how you are feeling. Get support from your partner, family members, and friends. Try to stay positive in how you think. Think about the things you are grateful for. Do not spend a lot of time alone. Only take oszm-lzp-digxzzu or prescription medicine as directed by your [...] not doing well or get worse. Resource: [facility] Patient Information 2015 [facility]. This information is not intended to replace advicegiven to you by your health care provider. Make sure you discuss any questions you have with your health care provider. Follow Up Care 03/30/2023 06:39:24 With:LONG DICKERSON Address: [address] [place] [address] [place] [address]- [phone] Business (1) When: Unknown [facility] 06-21-2023 Note Date of Service 03/31/23 Chief Complaint Subjective 22 [facility] Doing well. [...] 1 herlinda, Perineum, AsDirected benzocaine topical 20% [place] 1 spray(s), Perineum, q1h bisacodyl 10 mg [...] SUNIL GRAHAM MD on 03/31/2023 11:37 AM [facility]2023 Anesthesiology Consult note Patient: LUZ OLIVEIRA Age: 22 years Sex: Female : 2000 Associated Diagnoses: None Author: JENNIFER MERA SHOTBLAST OPERATOR-FIELD SERVICES ANALYST Assessment Postanesthesia assessment Vitals: Vital signs from flowsheet : Vital Signs 03/31/2023 5:49 EDT Temperature Temporal Artery 36 DegC Heart Rate Monitored 82 bpm Respiratory Rate 16 br/min Systolic Blood Pressure Non-Invasive 109 mmHg Diastolic Blood Pressure Non-Invasive 54 mmHg [facility] 03/30/2023 20:15 EDT Heart Rate Monitored [...] mmHg Diastolic Blood Pressure Non-Invasive 94 mmHg NE 03/30/2023 18:56 EDT Heart Rate Monitored 98 [...] by JENNIFER MERA on 03/31/2023 06:15 AM [facility]23 Note Patient seen at 1730 [...] LONG DICKERSON MD on 03/30/2023 05:30 PM [facility] Note Patient seen at 1730 [...] LONG DICKERSON MD on 03/30/2023 05:30 PM [facility] Note Patient seen at 1730 [...] LONG DICKERSON MD on 03/30/2023 05:30 PM [facility] Note CHIEF COMPLAINT: Membranes ruptured [...] SYSTEMS: All negative ACTIVE PROBLEMS: (4) Anxiety ([id number]) Body mass index 30+ - obesity (327403361) (505589821) UTI (urinary tract infection) ([id number]) ALLERGIES: (1) CeleXA FAMILY HISTORY: No inheritable diseases. SOCIAL HISTORY: . Denies tobacco use Denies alcohol use. No illicit drug use. PHYSICAL EXAM: VITALS: UrubyrJadyIGLohzlSOEnJ8ANP9TvzdZw(kg) 03/30 10:5735.6--7518----03/30 78.0 03/30 10:0535.9 03/30 09:0536.1 [...] LONG DICKERSON MD on 04/02/2023 11:08 AM [facility] Anesthesiology Consult note Patient: LUZ OLIVEIRA Age: 22 years Sex: Female : 2000 Associated Diagnoses: None Author: JENNIFER MERA SHOTBLAST OPERATOR-FIELD SERVICES ANALYST Preoperative Information laboring Anesthesia history Patient's history: [...] Problem list: Medical Anxiety / SNOMED CT [id number] / Confirmed Body mass index 30+ - obesity / SNOMED CT 806823475 / Confirmed / SNOMED CT 736646397 / Confirmed UTI (urinary tract infection) / SNOMED CT [id number] / Confirmed, Active Problems (4) Anxiety Body mass index 30+ - obesity UTI (urinary tract infection) Histories Past Medical History: Active Anxiety ([id number]) UTI (urinary tract infection) ([id number]) Family History: Cancer Grandparent Comments: 10/22/2022 14:27 AUGIE Navarro Poonam Sanchez THEATRICAL VARIETY AGENT maternal, brain Cardiac pacemaker Mother Diabetes mellitus Mother Asthma Grandparent Breast cancer Grandparent Heart disease Mother HTN - Hypertension Father COPD Grandparent Diabetes Grandparent Procedure history: [place] tooth ([id number]). Social History Social & Psychosocial Habits Alcohol [...] Signs(last 24 hrs) Last Charted Heart Rate [id number] bpm (MAR 30 10:57) Resp Rate 18 br/min (MAR 30 10:57) FSD331 mmHg (MAR 30 10:57) DBPL 59mmHg (MAR 30 10:57) BMI32.47 (MAR 30 07:49) Measurements from flowsheet : Measurements 03/30/2023 7:49 EDT Height 155.0 cm Admission Weight 78 kg Harmony Body Weight 47.85 kg BSA Admission 1.77 [...] Height 155.0 cm Admission Weight 78 kg Harmony Body Weight 47.85 kg BSA Admission 1.77 [...] Baby For Adoption No Surrogate No Discharge [place] Physician [facility] Participant No Safe Sleep Environment for Baby [...] Teaching Evaluation Refused information Preferred Written Language Qatari Preferred Spoken Language Qatari Chief Complaint SROM Mode of Arrival Ambulatory Information Given by Patient Patient's Current Physicians Dr [facility] Emergency Contact Number Luis Daniel Oliveira [phone] Belongings At Bedside Cell phone, Drain Technician Personal Home Medications Received No home medications [...] FHR Interpretation Category: Category One 03/30/2023 7:14 [facility] History and Physical History and Physical . Assessment and Plan [employer] Society of Anesthesiologists (ASA) physical status classification: Class II. Anesthetic Preoperative Plan Anesthetic technique: Epidural. Informed consent: signed by patient. Digitally Signed by JENNIFER MERA on 03/30/2023 01:37 PM [facility]06-20-2023 Note Date of Service 03/30/23 Chief Complaint SROM History of Present Illness 22 yo G1@39.2 presents with large gush of fluid around 0600 and regular contractions. c/bobesity and recent growth US AC 7%le overall 15%le. Noted blood tinged fluid. Growth at 37 weeks for obesity showed borderline low fluid 5 cm, growth in 15%le. SHOE SHINER history: Menarche: Menses: Menopause: n/a HRT: n/a [...] of breast bx: no Colonoscopy: DXA: Family SHOE SHINER history: Breast/colon/ovarian/uterine cancer: MGM w breast ca [...] infection) Historical No qualifying data Procedure/Surgical History [place] tooth Medications Home Medications (5) Active AD [...] SUNIL GRAHAM MD on 03/30/2023 07:30 AM [facility]05-28-2023 Hospital Discharge instructions Patient Education 03/07/2023 20:26:05 7 - Labor and Delivery Outpatient Instructions (CUSTOM) [facility] OUT[facility] HOME-GOING INSTRUCTIONS _X_ [...] crackers, bananas, Jell-O, cooked carrots, applesauce. ___ [place] diet. Avoid caffeine, chocolate, alcohol, spiced/greasy foods. [...] the nearest Emergency Room for assistance. Form [id number] D: 09/18 Document Released: 09/27/2006 Document Revised: 09/15/2012 Document Reviewed: 09/27/2006 ExitCare Patient Information 2012 [email or web address]. Follow Up Care 03/07/2023 19:56:20 With:WILTON AN, MARTINEZ Bautista Address: [address] [place] [address] [facility] [address] [phone] When:03/09/2023 [facility] 05-27-2023 Hospital Discharge instructions Patient Education 03/06/2023 18:27:44 7 - Labor and Delivery Outpatient Instructions (CUSTOM) [facility] HOME-GOING INSTRUCTIONS _X_ [...] crackers, bananas, Jell-O, cooked carrots, applesauce. ___ [place] diet. Avoid caffeine, chocolate, alcohol, spiced/greasy foods. [...] the nearest Emergency Room for assistance. Form [id number] D: 09/18 Document Released: 09/27/2006 Document Revised: 09/15/2012 Document Reviewed: 09/27/2006 ExitCare Patient Information 2011 [email or web address]. [facility] 04-18-2023 Hospital Discharge instructions Patient Education 01/26/2023 03:27:22 7 - Labor and Delivery Outpatient Instructions (CUSTOM) [facility] HOME-GOING INSTRUCTIONS _X_ [...] crackers, bananas, Jell-O, cooked carrots, applesauce. ___ [place] diet. Avoid caffeine, chocolate, alcohol, spiced/greasy foods. [...] the nearest Emergency Room for assistance. Form [id number] D: 09/18 Document Released: 09/27/2006 Document Revised: 09/15/2012 Document Reviewed: 09/27/2006 ExitCare Patient Information 2012 [email or web address]. Follow Up Care 01/26/2023 00:53:10 With:Follow up with primary care provider Address:Unknown When: Unknown [facility] 02-25-2023 Miscellaneous Notes* Telephone Encounter - Alex Garcia DO - 12/05/2022 5:08 PM EST Not a CFM patient documented [facility] Hospital Discharge instructions Patient Education 11/18/2022 13:18:57 [...] crackers, bananas, Jell-O, cooked carrots, applesauce. ___ [place] diet. Avoid caffeine, chocolate, alcohol, spiced/greasy foods. [...] the nearest Emergency Room for assistance. Form [id number] D: 09/18 Document Released: 09/27/2006 Document Revised: 09/15/2012 Document Reviewed: 09/27/2006 ExitCare Patient Information 2012 [email or web address]. Follow Up Care 11/18/2022 11:50:05 With:SUNIL GRAHAM Address: [address] [place] [address] [place] [address]- [phone] Business (1) When: Unknown [facility] 01-19-2023 NoteHNO ID: [id number] Author: Tad Shaw DO Service: Obstetrics Author [...] with plan. Tad Shaw DO 4:21 AM 10/29/2022[facility]01-19-2023 NoteHNO ID: [id number] Author: Tad Shaw DO Service: Obstetrics Author [...] intractable nausea/vomiting. She was sent her from [facility] Main ED. In the ED, patient [...] Diagnosis Date Cognitive disorder IEP per the [facility] Kidney stone [...] SIGNATURE: Tad Shaw DO PATIENT NAME: Luz Oilveira DATE: October 29, 2022 TIME: 3:25 [facility]01-19-2023 NoteCOVID 19 RESULT: SARS-CoV-2 (Agent of COVID-19) Not Detected by RT-PCR or equivalent method. This test has been authorized by FDA under an Emergency Use Authorization (EUA). INFLUENZA A PCR: Negative for Influenza A by RT-PCR INFLUENZA B PCR: Negative for Influenza B by RT-PCR RSV PCR: Negative for Respiratory Syncytial Virus (RSV) by [facility]bervilleComment on above:Performed By: #### [id number] ####[facility] LABORATORYCLIA [id number] [place] [address] [place] [id number] Miscellaneous Notes* Quick Notes - Gretel Quintana [...] vaccine). Gretel Quintana MD documented in this encounterPrem[facility]01-04-2023 Nurse Note* Aimee Desir Ma - 10/14/2022 11:01 AM EST Movement? Flutters Vaginal Bleeding: NO Vaginal fluid leakage of fluid: NO Contractions: no contractions documented in this encounterPrem[facility]12-08-2022 NoteHNO ID: [id number] Author: Braulio Hollingsworth MD Service: ? Author Type: Physician Type: Progress Notes Filed: 09/17/2022 2:28 PM Note Text: Please refer to quick note and flow sheet. [facility]2022 NoteHNO ID: [id number] Author: Braulio Hollingsworth MD Service: ? Author [...] No Multivitamin with Folic acid: Yes Occupation: [email or web address] student Uatsdin or heritage: Yes Would refuse blood transfusion if medically necessary: no BMI 35.62 kg/(m2) Patient BMI over 30? 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 loratadine (CLARITIN) 10 mg tablet Take 1 tablet by mouth once daily. fluticasone (FLONASE) 50 mcg/actuation nasal spray Use 1 [place] in each nostril once daily. No current [...] 4 weeks or sooner prn. Braulio Hollingsworth [facility]11-09-2022 NoteHNO ID: [id number] Author: Braulio Hollingsworth MD Service: ? Author Type: Physician Type: Progress Notes Filed: 08/19/2022 5:28 PM Note Text: OB point of care ultrasound was performed. See imaging tab for details. Braulio Hollingsworth [facility]11-09-2022 History of Present illness Narrative* [...] No Multivitamin with Folic acid: Yes Occupation: [email or web address] student Uatsdin or heritage: Yes Would refuse blood transfusion if medically necessary: no BMI 35.62 kg/(m^2) Patient BMI over 30? 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 No current [...] prn. Braulio Hollingsworth MD documented in this encounterPrem[facility]11-09-2022 Instructions* Patient Instructions* Braulio Hollingsworth MD - 08/19/2022 1:48 PM EST Please select the following link to access the [facility] Your Guide to a Healthy . [email or web address] documented in this encounterPrem[facility]11-09-2022 History of Present illness Narrative* Braulio Hollingsworth MD - 08/19/2022 1:41 PM EST OB point of care ultrasound was performed. See imaging tab for details. Braulio Hollingsworth MD documented in this encounterPrem[facility]11-09-2022 Nurse Note* Jennifer Stevenson MA - 08/19/2022 1:07 PM EST Movement? Too early Vaginal Bleeding: YES/MD NOTIFIED-Has had for 2 weeks Vaginal fluid leakage of fluid: NO Contractions: no contractions documented in this encounterPremier Health [facility]11-04-2022 NoteHNO ID: [id number] Author: Zuhair Condon DO Service: Obstetrics Author [...] 14, 2022 TIME: 9:44 PM PAGER/CONTACT #: [phone]22 NoteHNO ID: [id number] Author: Zuhair Condon DO Service: Obstetrics Author [...] Patient states that she originally went to [place] ED on 08/09/22. 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 No [...] of discharge (more content not included)...[facility]10-31-2022 Miscellaneous Notes* Telephone Encounter - Nisa Murphy - 08/10/2022 9:31 AM EDT Patient was in ED for bleeding. Not currently bleeding has new OB appointment 08/19. Please advise if you would like to see her sooner. documented in this encounterPrem[facility]10-25-2022 Hospital Discharge instructions* Discharge Instructions* Melania Mitchell MD - 08/04/2022 1:22 PM EDT Please call your OB today to schedule a follow up visit in the next 2 days. * Attachments The following attachments cannot be sent through Care Everywhere. * Miscarriage: Threatened (Qatari) documented in this encounterSUMMA Work Phone: [phone] Miscellaneous Notes* Telephone Encounter - Verónica Alegre [...] 09, 2022 12:24 PM documented in this encounterPremier [facility] SouthEvaluation + Plan note Future Appointments Appointment Date:11/16/2022 02:00:00 PM Scheduled Provider:SUNIL GRAHAM MD Location:[facility] Appointment Type: OV OB Routine Follow Up [facility] Evaluation + Plan note Future Appointments Appointment Date:12/14/2022 02:15:00 PM Scheduled Provider:SUNIL GRAHAM MD Location[facility] Appointment Type: OV OB Routine Follow Up Appointment Date:12/23/2022 08:30:00 AM Scheduled Provider: Location:[facility] Appointment Type:US OB > 14 wks Future Scheduled Tests Radiology* US OB Limited/Transvaginal 01/11/23 * US OB > 14 weeks 12/23/22 [facility] Evaluation + Plan note Future [...] Antibody 12/14/22 Radiology* US OB Limited/Transvaginal 01/11/23 [facility] Evaluation + Plan note Future Appointments Appointment Date:01/25/2023 01:00:00 PM Scheduled Provider:SUNIL GRAHAM MD Location:[facility] Appointment Type: OV OB Routine Follow Up [...] Antibody 12/14/22 Radiology* US OB Limited/Transvaginal 01/11/23 [facility] Evaluation + Plan note Future Appointments Appointment Date:02/01/2023 01:15:00 PM Scheduled Provider:SUNIL GRAHAM MD Location:[facility] Appointment Type:[facility] OB Routine Follow Up Appointment Date:03/15/2023 02:00:00 PM Scheduled Provider: Location:[facility] Appointment Type:US OB > 14 wks Future [...] * US OB > 14 weeks 03/15/23 [facility] Evaluation + Plan note Future Appointments Appointment Date:03/09/2023 01:45:00 PM Scheduled Provider:LONG DICKERSON MD Location:[facility] Appointment Type:[facility] OB Routine Follow Up Appointment Date:03/15/2023 02:00:00 PM Scheduled Provider: Location:[facility] Appointment Type:US OB > 14 wks Future [...] * US OB > 14 weeks 03/15/23 [facility] Evaluation + Plan note Future Appointments Appointment Date:03/15/2023 02:00:00 PM Scheduled Provider: Location:[facility] Appointment Type:US OB > 14 wks Appointment Date:03/16/2023 02:30:00 PM Scheduled Provider:LONG DICKERSON MD Location:[facility] Appointment Type:[facility] OB Routine Follow Up Diagnostic Tests [...] * US OB > 14 weeks 03/15/23 [facility] Evaluation + Plan note Future Appointments Appointment Date:03/15/2023 02:00:00 PM Scheduled Provider: Location:[facility] Appointment Type:US OB > 14 wks Appointment Date:03/16/2023 02:30:00 PM Scheduled Provider:LONG DICKEROSN MD Location:[facility] Appointment Type:[facility] OB Routine Follow Up Future Scheduled [...] * US OB > 14 weeks 03/15/23 [facility] Evaluation + Plan note Future Appointments Appointment Date:03/16/2023 02:30:00 PM Scheduled Provider:LONG DICKERSON MD Location:[facility] Appointment Type: OV OB Routine Follow Up [...] Urine 01/25/23 Radiology* US OB Limited/Transvaginal 01/11/23 [facility] Evaluation + Plan note Future Appointments Appointment Date:07/28/2024 08:30:00 AM Scheduled Provider:KIRSTEN CISNEROS Location:[facility] Appointment Type:PC Wellness Annual Future Scheduled Tests Laboratory* Glucose Level 07/20/23 * Lipid Profile 07/20/23 [facility] Evaluation + Plan note Future Appointments Appointment Date:08/25/2024 07:30:00 AM Scheduled Provider:KIRSTEN CISNEROS Location:[facility] Appointment Type:PC OV Future Scheduled Tests Radiology* CT Head or Brain w/o Contrast 07/28/24 * CT Spine Cervical w/o Contrast 07/28/24 [facility] Evajnnjwvx note* Diagnosis Threatened miscarriage in early - Primary Threatened , unspecified as to episode of care documented in this encounter [facility] Work Phone: Evaluation note* Diagnosis Onset Date Resolution Status Acute lumbar myofascial strain acute Blunt abdominal trauma acute Cervical strain, acute acute Chest wall contusion acute Concussion without loss of consciousness acute Lumbar radiculopathy, acute acute [facility] Work Phone: Evaluation note* Diagnosis Encounter for supervision of normal first in first trimester- Primary Supervision of normal first documented in this encounter [facility] note* Diagnosis with uncertain dates in first trimester- Primary documented in this encounter [facility] note* Diagnosis Encounter for supervision of normal first in second trimester- Primary Supervision of normal first Need for influenza vaccination Need for prophylactic vaccination and inoculation against influenza 15 weeks gestation of state, incidental [facility] this encounter [facility] Narrative No data available for this section [facility] Hospital Discharge instructions Additional Instructions Follow-up with your SURFACE GRINDER TENDER. Return if you have worsening symptoms or worsening abdominal pain/fever.[facility] Work Phone: Hospital Discharge instructions No data available for this section [facility] Progress note No data available for this section [facility] Reason for referral (narrative)* Diagnostic Procedure Only (Routine) - Pending Review Specialty Diagnoses / Procedures Referred By Contac t Referred To Contact [facility] Diagnoses Encounter for supervision of normal first in first trimester Procedures NUCHAL TRANSLUCENCY WHI US NUCHAL TRANSLUCENCY 1ST GESTATION Braulio Hollingsworth MD [address] [facility] [address] [place] [address] [facility] [address] [place] [address] Referral ID Status Reason Start Date Expiration Date Visits Requested Visits Authorized [id number] Pending Review Auto-Generat ed Referral 08/19/2022 08/19/2023 1 1 [facility] Diagnostic Procedure Only (Routine) - Authorized Specialty Diagnoses / Procedures Referred By Contac t Referred To Contact [facility] Diagnoses Encounter for supervision of normal first in second trimester Procedures OBSTETRIC ULTRASOUND WHI US PREG UTERUS AFTER 1ST TRIMEST GESTATION Gretel Quintana MD [address] [address] [facility] [address] [place] [address] Referral ID Status Reason Start Date Expiration Date Visits Requested Visits Authorized [id number] Authorized Auto-Generat ed Referral 10/14/2022 10/14/2023 1 1 [facility] Summary Purpose Family History No [...] Will No August 09 2:12pm Power of Manager Water No August 09, 2022 2:12pm Advance Directive Response Recorded Date/ Time Advance Directives No June 7:50am Living Will No August 09 1:12pm Power of Manager Water No August 09, 2022 1:12pm Chief Complaint [...] section and content) DATE CREATED AUTHOR 09/19/2018 [facility] DATE CREATED AUTHOR AUTHOR'S ORGANIZ ATION 12/26/2018 [facility] DATE CREATED AUTHOR AUTHOR'S ORGANIZ ATION 04/29/2019 [facility] DATE CREATED AUTHOR AUTHOR'S ORGANIZ ATION 12/25/2019 [facility] DATE CREATED AUTHOR AUTHOR'S ORGANIZ ATION 03/17/2021 [facility] DATE CREATED AUTHOR AUTHOR'S ORGANIZ ATION 08/29/2021 [facility] DATE CREATED AUTHOR AUTHOR'S ORGANIZ ATION 08/05/2022 [facility] DATE CREATED AUTHOR AUTHOR'S ORGANIZ ATION 11/13/2022 [facility] DATE CREATED AUTHOR AUTHOR'S ORGANIZ ATION 11/14/2022 [facility] DATE CREATED AUTHOR AUTHOR'S ORGANIZ ATION 02/20/2024 [facility] DATE CREATED AUTHOR AUTHOR'S ORGANIZ ATION 08/20/2024 [facility] DATE CREATED AUTHOR AUTHOR'S ORGANIZ ATION 06/27/2025 [facility] DATE CREATED AUTHOR AUTHOR'S ORGANIZ ATION 07/27/2025 [facility] Source Comments (unrecognize d section and content) In the event this informatio n is protected by the Federal Confidentiality of Alcohol and Drug Abuse Patient Records regulations: The Federal rules restrict any use of the information to criminally investigate or prosecute any alcohol or drug abuse patient.[facility]In the event this information is protected by the Federal Confidentiality of Alcohol and Drug Abuse Patient Records regulations: The Federal rules restrict any use of the information to criminally investigate or prosecute any alcohol or drug abuse patient.[facility] SouthIn the event this information is protected by the Federal Confidentiality of Alcohol and Drug Abuse Patient Records regulations: The Federal rules restrict any use of the information to criminally investigate or prosecute any alcohol or drug abuse patient.[facility] SouthIn the event this information is protected by the Federal Confidentiality of Alcohol and Drug Abuse Patient Records regulations: The Federal rules restrict any use of the information to criminally investigate or prosecute any alcohol or drug abuse patient.[facility] SouthIn the event this information is protected by the Federal Confidentiality of Alcohol and Drug Abuse Patient Records regulations: The Federal rules restrict any use of the information to criminally investigate or prosecute any alcohol or drug abuse patient.[facility] SouthIn the event this information is protected by the Federal Confidentiality of Alcohol and Drug Abuse Patient Records regulations: The Federal rules restrict any use of the information to criminally investigate or prosecute any alcohol or drug abuse patient.[facility] SouthIn the event this information is protected by the Federal Confidentiality of Alcohol and Drug Abuse Patient Records regulations: The Federal rules restrict any use of the information to criminally investigate or prosecute any alcohol or drug abuse patient.[facility] Reason for Visit (unrecogniz ed section and [...] Member Role: Primary Care Physician Address: Address: [address] [place] [phone] Care Team Related Persons Name: RASHMI MTZ Address: Home [address] [place] [phone] [place] Name: MARGARITO MTZ Address: Home [address] [place] [phone] [place] Name: MARGARITO MTZ Address: Home [address] [place] [address] [phone] [place] Name: MARGARITO TMZ Address: Home [address] [place] [address] [phone] [place] Name: MARGARITO MTZ Address: Home [address] [place] [address] [phone] [place] Name: MARGARITO MTZ Address: Home [address] [place] [address] [phone] [place] Name: MARGARITO MTZ Address: Home [address] [place] [address] [phone] [place] Name: MARGARITO MTZ Address: Home [address] [place] [address] [phone] [place] Name: MARGARITO MTZ Address: Home [address] [place] [address] [phone] [place] Care Team Personnel Name: MAXWELL GOMEZ MD Member Role: Primary Care Physician Address: Address: [address] [place], [place] [phone] Care Team Related Persons Name: RASHMI MTZ Address: Home [address] [place] [phone] [place] Name: MARGARITO MTZ Address: [address] [phone] [place] Name: MARGARITO MTZ Address: [address] [phone] [place] Name: MARGARITO MTZ Address: Home [address] [place] [address] [phone] [place] Name: MARGARITO MTZ Address: Home [address] [place] [address] [phone] [place] Name: MARGARITO MTZ Address: Home [address] [place] [address] [phone] [place] Name: MARGARITO MTZ Address: Home [address] [place] [phone] [place] Name: MARGARITO MTZ Address: Home [address] [place] [address] [phone] [place] Name: MARGARITO MTZ Address: Home [address] [place] [address] [phone] Patient Care team informatio n (unrecognized section and content) Care Team Personnel Name: MAXWELL GOMEZ MD Member Role: Primary Care Physician Address: Address: [address] [place], [place] [phone] [place] Care Team Related Persons Name: RASHMI MTZ Address: Home [address] [phone] [place] Name: MARGARITO MTZ Address: Home [address] [place] [address] [phone] [place] Name: MARGARITO MTZ Address: Home [address] [place] [address] [phone] [place] Name: MARGARITO MTZ Address: Home [address] [place] [phone] [place] Name: ELVIA MTZRI Address: Home [address] [place] [address] [phone] [place] Name: MARGARITO MTZ Address: [address] [phone] [place] Name: MARGARITO MTZ Address: [address], [place] [phone] [place] Name: MARGARITO MTZ Address: Home [address] [place] [id number] [place] Name: MARGARITO MTZ Address: [address] [place], [place] [id number] [place] Care Team Personnel Name: MAXWELL GOMEZ MD Member Role: Primary Care Physician Address: Address: [address] [place] [id number] [place] Care Team Related Persons Name: RASHMI MTZ Address: Home [address] [id number] [place] Name: MARGARITO MTZ Address: [address] [place], [place] [id number] [place] Name: MARGARITO MTZ Address: [address] [place], [place] [id number] [place] Name: MARGARITO MTZ Address: [address] [place], [place] [id number] [place] Name: MARGARITO MTZ Address: [address] [place], [place] [id number] [place] Name: MARGARITO MTZ Address: [address] [place], [place] [phone] [place] Name: MARGARITO MTZ Address: [address] [place], [place] [id number] [place] Name: MARGARITO MTZ Address: [address] [place], [place] [id number] [place] Name: MARGARITO MTZ Address: [address] [place], [place] [id number] [place] Care Team Personnel Name: SUNIL GRAHAM MD Position: P4 SURFACE GRINDER TENDER Provider Member Role: Primary Care Physician Address: Address: [address] [place], [place] [address] [facility] [place], [place] [address] Care Team Related Persons Name: RASHMI MTZ Address: Home [address] [phone] [place] Name: MARGARITO MTZ Address: [address] [place], [place] [id number] [place] Name: MARGARITO MTZ Address: [address] [place], [place] [id number] [place] Name: MARGARITO MTZ Address: [address] [place], [place] [id number] [place] Name: ELVIA MTZRI Address: [address] [place], [place] [id number] [place] Name: ELVIA MTZRI Address: [address] [place], [place] [phone] [place] Name: ELVIA MTZRI Address: [address] [place], [place] [phone] [place] Name: ELVIA MTZRI Address: [address] [place], [place] [phone] [place] Name: ELVIA MTZRI Address: [address] [place], [place] [id number] [place] Care Team Personnel Name: SUNIL GRAHAM MD Position: P4 SURFACE GRINDER TENDER Provider Member Role: Primary Care Physician Address: Address: [address] [place] [address] Care Team Related Persons Name: RASHMI MTZ Address: Home [address] [phone] [place] Name: MARGARITO MTZ Address: [address] [place], [place] [id number] [place] Name: ELVIA MTZRI Address: [address] [place], [place] [phone] [place] Name: MARGARITO MTZ Address: [address] [place], [place] [id number] [place] Name: ELVIA MTZRI Address: [address] [place], [place] [id number] [place] Name: MARGARITO MTZ Address: [address] [place], [place] [id number] [place] Name: MARGARITO MTZ Address: [address] [place], [place] [id number] [place] Name: MARGARITO MTZ Address: [address] [place], [place] [id number] [place] Name: MARGARITO MTZ Address: [address] [place], [place] [id number] [place] Care Team Personnel Name: MARTINEZ NÚÑEZ MD Position: P4 SURFACE GRINDER TENDER Provider Member Role: Primary Care Physician Address: Address: [address] [place] [address] Care Team Related Persons Name: RASHMI MTZ Address: Home [address] [phone] [place] Name: MARGARITO MTZ Address: [address] [place], [place] [phone] [place] Name: MARGARITO MTZ Address: [address] [place], [place] [id number] [place] Name: MARGARITO MTZ Address: [address] [place] [id number] [place] Name: MARGARITO MTZ Address: [address] [place], [place] [id number] [place] Name: MARGARITO MTZ Address: [address] [place], [place] [phone] [place] Name: MARGARITO MTZ Address: [address] [place], [place] [phone] [place] Name: MARGARITO MTZ Address: Home [address] [place] [phone] [place] Name: MARGARITO MTZ Address: [address] [place], [place] [id number] Care Team Personnel Name: MARTINEZ NÚÑEZ MD Position: P4 SURFACE GRINDER TENDER Provider Member Role: Primary Care Physician Address: Address: [address] [place] [address] Care Team Related Persons Name: RASHMI MTZ Address: Home [address] [id number] [place] Name: MARGARITO MTZ Address: [address] [place], [place] [id number] [place] Name: MARGARITO MTZ Address: [address] [place], [place] [phone] [place] Name: MARGARITO MTZ Address: [address] [place], [place] [id number] [place] Name: MARGARITO MTZ Address: [address] [place], [place] [id number] [place] Name: MARGARITO MTZ Address: [address] [place], [place] [id number] [place] Name: MARGARITO MTZ Address: [address] [place], [place] [phone] [place] Name: MARGARITO MTZ Address: [address] [place], [place] [id number] [place] Name: MARGARITO MTZ Address: [address] [place], [place] [phone] [place] Care Team Personnel Name: MARTINEZ NÚÑEZ MD Position: P4 SURFACE GRINDER TENDER Provider Member Role: Primary Care Physician Address: Address: [address] [place] [address] Care Team Related Persons Name: RASHMI MTZ Address: Home [address] [phone] [place] Name: MARGARITO MTZ Address: [address] [place], [place] [id number] [place] Name: MARGARITO MTZ Address: [address] [place], [place] [id number] [place] Name: MARGARITO MTZ Address: [address] [place], [place] [id number] [place] Name: MARGARITO MTZ Address: [address] [place], [place] [id number] [place] Name: MARGARITO MTZ Address: [address] [place], [place] [id number] [place] Name: MARGARITO MTZ Address: [address] [place], [place] [id number] [place] Name: MARGARITO MTZ Address: [address] [place], [place] [phone] [place] Name: MARGARITO MTZ Address: [address] [place], [place] [phone] [place] Care Team Personnel Name: MARTINEZ NÚÑEZ MD Position: P4 SURFACE GRINDER TENDER Provider Member Role: Primary Care Physician Address: Address: [address] [place] [address]- Care Team Related Persons Name: RASHMI MTZ Address: Home [address] [phone] [place] Name: MARGARITO MTZ Address: [address] [place], [place] [id number] [place] Name: MARGARITO MTZ Address: [address] [place], [place] [phone] [place] Name: MARGARITO MTZ Address: [address] [place], [place] [id number] [place] Name: MARGARITO MTZ Address: [address] [place], [place] [phone] [place] Name: MARGARITO MTZ Address: [address] [place], [place] [id number] [place] Name: MARGARITO MTZ Address: [address] [place] [phone] [place] Name: MARGARITO MTZ Address: [address] [place], [place] [phone] [place] Name: MARGARITO MTZ Address: [address] [place], [place] [id number] [place] Care Team Personnel Name: MARTINEZ NÚÑEZ MD Position: P4 SURFACE GRINDER TENDER Provider Member Role: Primary Care Physician Address: Address: [address] [place] [id number] [place] [address] Care Team Related Persons Name: RASHMI MTZ Address: Home [address] [phone] [place] Name: MARGARITO MTZ Address: [address] [place], [place] [phone] [place] Name: MARGARITO MTZ Address: [address] [place], [place] [phone] [place] Name: MARGARITO MTZ Address: [address] [place], [place] [id number] [place] Name: MARGARITO MTZ Address: [address] [place], [place] [phone] [place] Name: MARGARITO MTZ Address: [address] [place], [place] [id number] [place] Name: MARGARITO MTZ Address: [address] [place], [place] [phone] [place] Name: MARGARITO MTZ Address: [address] [place], [place] [phone] [place] Name: MARGARITO MTZ Address: [address] [place], [place] [id number] [place] Care Team Personnel Name: MARTINEZ NÚÑEZ MD Position: P4 SURFACE GRINDER TENDER Provider Member Role: Primary Care Physician Address: Address: [address] [place] [address]- Care Team Related Persons Name: AMANDA OLIVEIRA Address: Home [address] [place] [id number] [place] Address: Temporary [address] [place], [place] [id number] Name: RASHMI MTZ Address: Home [address] [phone] [place] Name: MARGARITO MTZ Address: [address] [place], [place] [id number] [place] Name: MARGARITO MTZ Address: [address] [place], [place] [phone] [place] Name: MARGARITO MTZ Address: [address] [place], [place] [id number] [place] Name: MARGARITO MTZ Address: [address] [place], [place] [phone] [place] Name: MARGARITO MTZ Address: [address] [place], [place] [phone] [place] Name: MARGARITO MTZ Address: [address] [place], [place] [phone] [place] Name: MARGARITO MTZ Address: [address] [place], [place] [id number] [place] Name: MARGARITO MTZ Address: [address] [place] [phone] [place] Care Team Personnel Name: MARTINEZ NÚÑEZ MD Position: P4 SURFACE GRINDER TENDER Provider Member Role: Primary Care Physician Address: Address: [address] [place] [address] Services [place], [place] [address] Care Team Related Persons Name: LUIS DANIEL OLIVEIRA Address: Home [address] [place], [place] [id number] Address: Temporary [address] [place], [place] [id number] Care Team Personnel Name: KIRSTEN CISNEROSRIDING SILKS CUSTODIAN Position: P4 Advanced Histology Technologist Member Role: Primary Care Physician Address: Address: [address] [place] [address] Care Team Related Persons Name: LUIS DANIEL OLIVEIRA Address: Home [address] [place], [place] [id number] Address: Temporary [address] [place], [place] [id number] Care Team Personnel Name: KIRSTEN CISNEROS APRN-RIDING SILKS CUSTODIAN Position: P4 Advanced Histology Technologist Member Role: Primary Care Physician Address: Address: [address] [place] [address]- Care Team Related Persons Name: LUIS DANIEL OLIVEIRA Address: Home [address] [place], [place] [id number] Address: Temporary [address] [place], [place] [id number] FOR RECORDS PERTAINING TO PATIENTS WHO ARE [...] BE BASED ON THE PRIMARY CLINICAL RECORDS. [facility] [employer] provides no warranty or guarantee of the accuracy or completeness of information in this document.
--- OUTSIDE RECORDS SUMMARY | 2025-07-30 00:01 | XMS RPT_ITS | CCD ---
Author Organization [facility] Care Team Providers Care Optical Scientist Name Role Phone Lynsey [phone], Alex [phone] C onsulting Unavailable KWON DO, KAY K [...] MARTINEZ NÚÑEZ MD Primary Care Physician MAST MARKETING PROGRAM MANAGER-TERMITE CONTROL SERVICER, KIRSTEN Primary Care Physician WILTON AN, MARTINEZ Bautista Primary Care Unavailable LIVIER AN, SUNIL Admitting Unavailable JAYLA AN, LONG Attending Unavailable WILTON AN, MARTINEZ Bautista Attending Unavailable WILTON AN, MARTINEZ Bautista Primary Care Unavailable WILTON AN, MARTINEZ Bautista Attending Unavailable WILTON AN, MARTINEZ Bautista Primary Care Unavailable WILTON AN, MARTINEZ Bautista Attending Unavailable WILTON AN, MARTINEZ Bautista Primary Care Unavailable [facility], OSMAN Attending Unavailhieu NÚÑEZ MD, MARTINEZ Bautista Primary Care Unavailable MAST MARKETING PROGRAM MANAGER-TERMITE CONTROL SERVICER, KIRSTEN Attending Unavailabl e MAST MARKETING PROGRAM MANAGER-TERMITE CONTROL SERVICER, KIRSTEN Primary Care Unavailabl e LIVIER AN, SUNIL Attending Unavailable WILTON AN, MARTINEZ Bautista Primary Care Unavailable JAYLA AN, LONG Attending Unavailable WILTON AN, MARTINEZ Bautista Primary Care Unavailable JAYLA AN, LONG Attending Unavailable WILTON AN, MARTINEZ Bautista Primary Care Unavailable MAST MARKETING PROGRAM MANAGER-TERMITE CONTROL SERVICER, KIRSTEN Attending Unavailabl e MAST MARKETING PROGRAM MANAGER-TERMITE CONTROL SERVICER, KIRSTEN Primary Care Unavailabl e RAMA AVALOS [...] Physician, No Primary Primary Care Unava ilable [place] UTILITY TECHNICIAN, Remedios Attending Unavailable Care Physician, No Primary Referring Unava ilable Care Physician, No Primary Primary Care Unava ilable Sanchez, Geraldine Referring Unavailable Sanchez, Geraldine Attending Unavailable Vande Velde, Rama Referring Unavailabl e Vande Velde, Rama Attending Unavailabl e Care Physician, No Primary Primary Care Unava ilable Antonio, [place] Consulting Unavailable Care Physician, No Primary Primary Care Unava ilable [place] UTILITY TECHNICIAN, Remedios Attending Unavailable GardnerMendez Attending Unavailable Care Physician, No Primary Primary Care Unava ilable [place] UTILITY TECHNICIAN, Remedios Attending Unavailable Care Physician, No Primary Primary Care Unava ilable Jose UTILITY TECHNICIAN, Remedios Referring Unavailable Care Physician, No Primary Primary Care Unava ilable Marcanthony, Geraldine Referring Unavailable Marcanthony, Geraldine Attending Unavailable Care Physician, No Primary Primary Care Unava ilable Damari Mcdonough Referring Unavailable Damari Mcdonough Attending Unavailable Jose UTILITY TECHNICIAN, Remedios Attending Unavailable Care Physician, No Primary Primary Care Unava ilable [place] UTILITY TECHNICIAN, Remedios Referring Unavailable Jose UTILITY TECHNICIAN, Remedios Attending Unavailable Care Physician, No Primary Primary Care Unava ilable Jose UTILITY TECHNICIAN, Remedios Referring Unavailable Care Physician, No Primary Primary Care Unava ilable Care Physician, No Primary Referring Unava ilable Geraldine Bradford Attending Unavailable Allergies Allergy Classification Reported Allergen(s) Allergy Type Date of Onset Reaction(s) Facility (1 source) Escitalopram Drug Allergy [facility] Repository (11 sources) Citalopram; Translations: [CITALOPRAM HYDROBROMIDE] Drug Allergy 4 Other: See Comments [facility] Work Phone: (11 sources) Escitalopram; Translations: [ESCITALOPRAM] Drug Allergy 1 Other: See Comments [facility] Work Phone: (15 sources) Citalopram; Translations: [citalopram] Drug Allergy Suicidal ideation [facility] (1 source) Citalopram Drug Allergy 5 [facility] Repository (1 source) Escitalopram Drug Allergy [facility] Repository Medications Current Medications Medication Drug Class(es) Dates Sig (Normalized) Sig (Original) acetaminophen 500 mg oral tablet (1 source) Start: 03-31-2023 End: 04-28-2023 Tylenol Extra Strength 500 mg oral tablet Dose : 500 mg = 1 tab(s), Oral, q4h, X 14 day(s), # 30 tab(s), 1 Refill(s), 04/28/23 11:38:00 EDT, Pharmacy: [facility]/pharmacy #[id number], 155, cm, 03/30/23 7:49:00 EDT, Height Start Date: 03/31/23 Stop Date: 04/28/23 Status: Ordered benzocaine 200 mg/ml topical spray (1 source) Standardized Chemical Allergen Start: 03-31-2023 End: 04-14-2023 apply 1 dose topically four times daily Americaine 20% topical spray Dose = 1 herlinda, Topical, QID, X 14 day(s), # 1 EA, 0 Refill(s), Pharmacy: [facility]/pharmacy #[id number], 155, cm, 03/30/23 7:49:00 EDT, [...] 0 Refill(s), 02/25/24 8:31:00 AM EDT, Pharmacy: [id number], 155, cm, 02/18/24 [...] BID, # 28 tab(s), 0 Refill(s), Pharmacy: [facility] #[id number], 155, cm, 02/18/24 7:59:00 EDT, Height, [...] tab(s), 0 Refill(s), 04/14/23 11:38:00 EDT, Pharmacy: [facility]/pharmacy #[id number], 155, cm, 03/30/23 7:49:00 EDT, Height Start Date: 03/31/23 Stop Date: 04/14/23 Status: Ordered magnesium oxide 400 mg oral tablet (3 sources) Start: 01-11-2023 End: 02-10-2023 magnesium oxide 400 mg oral tablet Dose : 400 mg = 1 tab(s), Oral, qHS, X 30 day(s), # 30 tab(s), 0 Refill(s), 02/10/23 15:17:00 EDT, Pharmacy: [facility]/pharmacy #[id number], 155, , 01/11/23 15:08:00 EDT, [...] tylenol, # 12 tab(s), 0 Refill(s), Pharmacy: [facility]/pharmacy #[id number], 155, cm, 01/11/23 15:08:00 EDT, [...] on above: Take 1 capsule by mo [facility] daily with breakfast. AD oral tablet (10 sources) Start: 01-26-2023 take 1 tablet by mouth once daily AD oral tablet Dose = 1 tab(s), Oral, Daily, # 30 tab(s), 0 Refill(s) Start Date: 01/26/23 Status: Ordered Wpemhgmh-Nul-Zu-Fa () 1 mg Tablet (2 sources) Start: 08-09-2022 take 1 tablet by mouth once daily Kgmreizf-Com-Ou-Fa () 1 mg Tablet Active 1 TABLET PO DAILY August 08, 2022 11:00pm Start: 08-09-2022 [facility] Ueuazcxz-Klu-Wo-Fa () 1 mg Tablet Active 1 TABLET [...] qDay, # 30 tab(s), 11 Refill(s), [id number], Depression, major, recurrent, moderate, 154, cm, 07/20/23 7:49:00 EDT, Height, kg, 07/20/23 7:49:00 EDT, Dosing Weight Start Date: 08/16/23 Stop Date: 08/10/24 Status: Ordered Vitamin B2 100 mg oral tablet (8 sources) Start: 02-04-2023 take 1 tablet by mouth once daily Vitamin B2 100 mg oral tablet 1 tab(s), Oral, qDay, # 30 tab(s), 2 Refill(s), Pharmacy: [facility] STORE [id number], 155, cm, 02/01/23 13:50:00 EDT, Height, kg, 01/26/23 0:59:00 EDT, Dosing Weight Start Date: 02/04/23 Status: Ordered Start: 01-11-2023 Vitamin B2 100 mg oral tablet Dose : 100 mg = 1 tab(s), Oral, Daily, # 30 tab(s), 2 Refill(s), Pharmacy: [facility]/pharmacy #[id number], 155, cm, 01/11/23 15:08:00 EDT, [...] (FLONASE) 50 mcg/actuation nasal spray Use 1 [place] in each nostril once daily. 1 Bottle 2 07/10/2014 08/19/2022 Discontinued Comment on above: Use 1 [place] in each nostril once daily. loratadine 10 [...] (3 sources) Congenital vesicoureterorenal reflux; Translations: [Congenital zqfdgf-zgsdtgl-lcgke reflux] Onset: 5 Chronic Headache; including migraine [...] Absolute Lymph 1.09 X10 3/uL Normal 0.83-4.51 [facility] Comment on above: Performed By: #### L 100.0100, L500.4050 #### [facility] [address] [place], [place], [id number] Absolute Neut 6.9 X10 3/uL Normal 2.0-7.7 [facility] Comment on above: Performed By: #### L 100.0100, L500.4050 #### [facility] [address] [place], [address] Basophils/100 WBC (Bld) 0.1 % Normal 0-1 [facility] Comment on above: Performed By: #### L 100.0100, L500.4050 #### [facility] [address] [place], [address] Eosinophils/100 WBC (Bld) 0.2 % Normal 0-5 [facility] Comment on above: Performed By: #### L 100.0100, L500.4050 #### [facility] [address] [place], [address] Erythrocyte distribution width (RBC) [Ratio] 14.1 % Normal 11.6-14.6 [facility] Comment on above: Performed By: #### L 100.0100, L500.4050 #### [facility] [address] [place], [address] Hematocrit (Bld) [Volume fraction] 31.9 % Low 37-47 [facility] Comment on above: Performed By: #### L 100.0100, L500.4050 #### [facility] [address] [place], [address] Hemoglobin (Bld) [Mass/Vol] 11.6 g/dL Low 12.0-15.0 [facility] Comment on above: Performed By: #### L 100.0100, L500.4050 #### [facility] [address] [place], [address] IG% 0.600 Normal 0.0-0.9 [facility] Comment on above: Result Comment: IG% - Immature Granulocytes (promyelocytes, myelocytes and metamyelocytes) > 1% indicates that a LEFT SHIFT is Present. Performed By: #### L 100.0100, L500.4050 #### [facility] [address] [place], [address] Lymphocytes/100 WBC (Bld) 12.8 % Low 19-41 [facility] Comment on above: Performed By: #### L 100.0100, L500.4050 #### [facility] [address] [place], [address] MCH (RBC) [Entitic mass] 32.6 pg High 27.0-32.0 [facility] Comment on above: Performed By: #### L 100.0100, L500.4050 #### [facility] [address] [place], [address] MCHC (RBC) [Mass/Vol] 36.4 g/dL High 32-36 [facility] Comment on above: Performed By: #### L 100.0100, L500.4050 #### [facility] [address] [place], [address] MCV (RBC) [Entitic vol] 89.6 fL Normal 81-99 [facility] Comment on above: Performed By: #### L 100.0100, L500.4050 #### [facility] [address] [place], [address] Monocytes/100 WBC (Bld) 4.7 % Normal 0-10 [facility] Comment on above: Performed By: #### L 100.0100, L500.4050 #### [facility] [address] [place], [address] Neutrophils/100 WBC (Bld) 81.6 % High 47-70 [facility] Comment on above: Performed By: #### L 100.0100, L500.4050 #### [facility] [address] [place], [address] Nucleated RBC (Bld) [#/Vol] 0 10*3/uL Normal 0-5 [facility] Comment on above: Performed By: #### L 100.0100, L500.4050 #### [facility] [address] [place], [address] Platelet mean volume (Bld) [Entitic vol] 10.1 fL Normal 6.2-12.0 [facility] Comment on above: Performed By: #### L 100.0100, L500.4050 #### [facility] [address] [place], [address] Platelets (Bld) [#/Vol] 180 10*3/uL Normal 150-450 [facility] Comment on above: Performed By: #### L 100.0100, L500.4050 #### [facility] [address] [place], [address] RBC (Bld) [#/Vol] 3.56 10*6/uL Low 4.2-5.4 [facility] Comment on above: Performed By: #### L 100.0100, L500.4050 #### [facility] [address] [place], [address] RDW SD 45.9 fl High 35.1-43.9 [facility] Comment on above: Performed By: #### L 100.0100, L500.4050 #### [facility] [address] [place], [address] WBC (Bld) [#/Vol] 8.5 10*3/uL Normal 4.4-11.0 [facility] Comment on above: Performed By: #### L 100.0100, L500.4050 #### [facility] [address] [place], [address] Comprehensive Metabolic Prof [facility] 07-09-2025 Albumin [Mass/Vol] 3.9 g/dL Normal 3.5-5.0 [facility] Comment on above: Performed By: #### L 100.0100, L500.4050 #### [facility] [address] [place], [address] Albumin/Globulin [Mass ratio] 1.4 {ratio} Normal 0.9-2.4 [facility] Comment on above: Performed By: #### L 100.0100, L500.4050 #### [facility] [address] [place], [address] ALK PHOS 65 U/L Normal 35-104 [facility] Comment on above: Performed By: #### L 100.0100, L500.4050 #### [facility] [address] [place], [address] ALT [Catalytic activity/Vol] 20 U/L Normal <=34 [facility] Comment on above: Performed By: #### L 100.0100, L500.4050 #### [facility] [address] [place], [address] AST [Catalytic activity/Vol] 23 U/L Normal <=31 [facility] Comment on above: Performed By: #### L 100.0100, L500.4050 #### [facility] [address] [place], [address] Bilirubin [Mass/Vol] 0.35 mg/dL Normal 0.00-1.30 [facility] Comment on above: Performed By: #### L 100.0100, L500.4050 #### [facility] [address] [place], [address] BUN/CRE 10.5 RATIO Normal 10-20 [facility] Comment on above: Performed By: #### L 100.0100, L500.4050 #### [facility] [address] [place], [address] Calcium [Mass/Vol] 9.1 mg/dL Normal 7.6-11.0 [facility] Comment on above: Performed By: #### L 100.0100, L500.4050 #### [facility] [address] [place], [address] Chloride [Moles/Vol] 105 mmol/L Normal 98-108 [facility] Comment on above: Performed By: #### L 100.0100, L500.4050 #### [facility] [address] [place], [address] CO2 [Moles/Vol] 18.7 mmol/L Low 21.0-32.0 [facility] Comment on above: Performed By: #### L 100.0100, L500.4050 #### [facility] [address] [place], [address] Creatinine [Mass/Vol] 0.60 mg/dL Low 0.70-1.20 [facility] Comment on above: Performed By: #### L 100.0100, L500.4050 #### [facility] [address] [place], [address] GAP 14 Normal 5-15 [facility] Comment on above: Performed By: #### L 100.0100, L500.4050 #### [facility] [address] [place], [address] GFR/1.73 sq M.predicted among non-blacks MDRD (S/P/Bld) [Vol rate/Area] 128 mL/min/{1.73_m2} Normal >60 [facility] Comment on above: Result Comment: mL/m in/1.73m2 CKD-EPI Creatinine Equation (2020) Performed By: #### L 100.0100, L500.4050 #### [facility] [address] [place], [address] Globulin (S) [Mass/Vol] 2.8 g/dL Normal 2.2-4.2 [facility] Comment on above: Performed By: #### L 100.0100, L500.4050 #### [facility] [address] [place], [address] Glucose [Mass/Vol] 91 mg/dL Normal 70-99 [facility] Comment on above: Performed By: #### L 100.0100, L500.4050 #### [facility] [address] [place], [address] Potassium [Moles/Vol] 3.7 mmol/L Normal 3.3-5.1 [facility] Comment on above: Performed By: #### L 100.0100, L500.4050 #### [facility] [address] [place], [address] Sodium [Moles/Vol] 137 mmol/L Normal 133-145 [facility] Comment on above: Performed By: #### L 100.0100, L500.4050 #### [facility] [address] [place], [address] T PROT 6.7 g/dL Normal 5.9-8.4 [facility] Comment on above: Performed By: #### L 100.0100, L500.4050 #### [facility] [address] [place], [address] Urea nitrogen [Mass/Vol] 6 mg/dL Normal 4-19 [facility] Comment on above: Performed By: #### L 100.0100, L500.4050 #### [facility] [address] [place], [address] Children'S Tutor Office Visit Reporton 07-09-2025 Children'S Tutor Office Visit Report [facility]'[address], [address] [place] [address] OFFICE VISIT Date of Service: 07/09/25 MR#: [id number] Acct: [id number] Name: LUZ OLIVEIRA Rep #: 36 [...] Visit Reasons: DISCUSS CONCERNS * OK PER Food Production Worker Required: No Is patient in pain?: No Allergies escitalopram (From Lexapro) Adverse Reaction (Severe, Verified 07/09/25 09:30) SUICIDAL citalopram hydrobromide (From Celexa) Adverse Reaction (Verified 07/09/25 09:30) Other Medications ???Medication ???Instructions ???Recorded ???Confirmed ???Type fdnzlxri-cfj-Ui-FA 1 mg 1 tab PO DAILY 08/09/22 [...] hypertension Obesity affecting 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 alprow-yeuwzjo-xmkci reflux Surgical History Boles teeth removed Family History Grandmother Breast cancer Brain cancer Grandfather CVA (cerebral vascular accident) Mother Diabetes Heart failure MRSA carrier History of recurrent miscarriages Father Hypertension Social History adopted: No household members: spouse and children housing: house number of children: 1 current occupation: [employer] current occupational exposures/hazards: No pets and [...] 3-4 times per week duration: 15-30 minutes/day kalpana/restoration: Christianity seatbelt use: always do you feel safe at home: Yes 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 Date Name GA/Weeks Outcome Route Bth Weight Gen Labor Lgth Anesthesia Del Locatn Provider FOB 10/11/18 Chemical 4 spontaneous 03/30/23 Amanda 39 live - full term vacuum 6lbs 1oz Female epidural [facility] Delivery Date: 03/30/23 Last Updated by: [...] Visit Note (more content not included)... Normal [facility] Protein+Creatinine Ratio,Uri neon 07-09-2025 PROT:CRE RATIO 283 mg/g CRE High 0-200 [facility] Comment on above: Performed By: #### L 501.0900 #### [facility] [address] [place], [address] Protein (U) [Mass/Vol] 73.9 mg/dL High 0.0-12.0 [facility] Comment on above: Performed By: #### L 501.0900 #### [facility] [address] [place], [address] UR CREAT 261.00 mg/dL High 28.00-217.00 [facility] Comment on above: Performed By: #### L 501.0900 #### [facility] [address] [place], [address] Wound Cultureon 07-06-2025 WC Lesion of abdomen Possible skin contamination, further Identification and sensitivity will be performed only by physician's request. Coag Negative Staph Amount Growth 2+ Normal [facility] Comment on above: Performed By: #### L 100.0100 #### [facility] [address] [place], [address] Gram Stainon 07-04-2025 GS Lesion of abdomen Gram Stain 1+ White Blood Cells No organisms seen Normal [facility] Comment on above: Performed By: #### L 100.0100 #### [facility] [address] [place], [address] Children'S Tutor Office Visit Reporton 07-03-2025 Children'S Tutor Office Visit Report [facility] [address], [address] [place] [address] OFFICE VISIT Date of Service: 07/03/25 MR#: [id number] Acct: [id number] Name: ULZ OLIVEIRA Rep #: [id number] : 2000 Provider: JARAD moctezuma Age/Sex: 24/F Location: [facility] Status: Signed Intake Vital Signs 05/07/25 14:40 06/06/25 13:39 07/03/25 15:35 Height 5 ft 1 in 5 ft 1 in 5 ft 1 in Weight: 185 lb 4 oz BMI 34.9 BP 109/74 Intake Visit Reasons: 21wk ob Chief Complaint: 21 Week OB Food Production Worker Required: No Is patient in pain?: No Allergies escitalopram (From Lexapro) Adverse Reaction (Severe, Verified 07/03/25 15:38) SUICIDAL citalopram hydrobromide (From Celexa) Adverse Reaction (Verified 07/03/25 15:38) Other Medications ???Medication ???Instructions ???Recorded ???Confirmed ???Type jvhtoykz-btg-Qk-FA 1 mg 1 tab PO DAILY 08/09/22 [...] hypertension Obesity affecting 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 nxaiei-ycwhqka-xmrit reflux Surgical History Boles teeth removed Family History Grandmother Breast cancer Brain cancer Grandfather CVA (cerebral vascular accident) Mother Diabetes Heart failure MRSA carrier History of recurrent miscarriages Father Hypertension Social History adopted: No household members: spouse and children housing: house number of children: 1 current occupation: [employer] current occupational exposures/hazards: No pets and [...] 3-4 times per week duration: 15-30 minutes/day kalpana/restoration: Christianity seatbelt use: always do you feel safe at home: Yes 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 Date Name GA/Weeks Outcome Route Bth Weight Infant Gen Labor Lgth Anesthesia Del Locatn Provider FOB 10/11/18 Chemical 4 spontaneous 03/30/23 Amanda 39 live - full term vacuum 6lbs 1oz [facility] Date: 03/30/23 Last Updated by: Yasmin [...] ??-???- 9w (more content not included)... Normal [facility] Progress Noteon 06-20-2025 Film Cutter Authentication Interface Message Text [facility] MATERNAL- MEDICINE CONSULT Referring/Requesting Provider: Rama Avalos [...] 03/30/23 39w0d 2.75 kg F Vag-Vacuum EPI AFTIMAH Comments: SROM, GHTN, SGA/IUGR 1 SAB 10/11/18 4w0d Past Medical History: Diagnosis Date Anxiety Attention-deficit hyperactivity disorder Chronic kidney disease kidney stones Congenital msslbr-wuhzkov-ascxx reflux Depression Elevated liver enzymes Headache in [...] repeat LFTs are elevated, refer to local floral arranger for further evaluation. Frequent UTI 06/20/2025 - [...] hemorrhage, stillbirth, anomalies, delivery and postcesarean complications. [place] of medicine recommend weight gain in : [...] findings. Ame (more content not included)... Normal [facility] Children'S Tutor Office Visit Reporton 06-06-2025 Children'S Tutor Office Visit Report [facility]'s [address], [address] [place] [address] OFFICE VISIT Date of Service: 06/06/25 MR#: [id number] Acct: [id number] Name: LUZ OLIVEIRA Rep #: [id number] : 2000 Provider: Dr. Rama Trammell DO Age/Sex: 24/F Location: [facility] Status: Signed Intake Vital Signs 04/09/25 10:40 05/30/25 09:28 06/06/25 13:37 06/06/25 13:39 Height 5 ft 1 in 5 ft 1 in 5 ft 1 in 5 ft 1 in Weight: 183 lb 5 oz BMI 34.6 BP 112/68 Intake Visit Reasons: 17 wk ob Food Production Worker Required: No Is patient in pain?: No Allergies escitalopram (From Lexapro) Adverse Reaction (Severe, Verified 06/06/25 13:36) SUICIDAL citalopram hydrobromide (From Celexa) Adverse Reaction (Verified 06/06/25 13:36) Other Medications ???Medication ???Instructions ???Recorded ???Confirmed ???Type lgoybjfo-ogt-Yr-FA 1 mg 1 tab PO DAILY 08/09/22 06/06/25 H istory tablet metoclopramide HCl 5 mg tablet 5 mg PO QACHS #60 tabs 04/19/25 Rx (Reglan) Last Menstrual Period: 02/02/25 Zika: Zika virus screening: Negative : No PFSH PFSH Medical History Fatty liver Renal atrophy, left Elevated liver enzymes Heart palpitations History of gestational hypertension Obesity affecting 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 sxarga-upjlhza-rdpzi reflux Surgical History Boles teeth removed Family History Grandmother Breast cancer Brain cancer Grandfather CVA (cerebral vascular accident) Mother Diabetes Heart failure MRSA carrier History of recurrent miscarriages Father Hypertension Social History adopted: No household members: spouse and children housing: house number of children: 1 current occupation: [employer] current occupational exposures/hazards: No pets and [...] 3-4 times per week duration: 15-30 minutes/day kalpana/restoration: Christianity seatbelt use: always do you feel safe at home: Yes 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 Date Name GA/Weeks Outcome Route Bth Weight Gen Labor Lgth Anesthesia Del Locatn Provider FOB 10/11/18 Chemical 4 spontaneous 03/30/23 Amanda 39 live - full term vacuum 6lbs 1oz Female epidural [facility] Delivery Date: 03/30/23 Last Updated by: [...] ??-???- Negat (more content not included)... Normal [facility] Urine Cultureon 06-02-2025 URC #1,2 Gram positive francheska suggestive of a diphtheroid. Susceptibility not normally performed on this organism Urine Culture Urine Culture Urine Culture Corynebacterium amycolatum [place] Count 11,000-25,000 Corynebacterium minutissimum Corynebacterium minutissimum Normal [facility] Comment on above: Performed By: #### M 100.678, M100.2200, L400.0001 #### [facility] [address] [place], [place], [address] Cardiology Visit Reporton Cardiology Visit Report [facility] [address] [place] [address] OFFICE VISIT Date of Service: 05/30/25 MR#: [id number] Acct: [id number] Name: LUZ OLIVEIRA Rep #: 63 : 2000 Provider: Dr. Keven Alvarez MD Age/Sex: 24/F [place] [facility] [place]: Signed HPI HPI History of Present [...] Source Monitor Intake Visit Reasons: PALP ([place]) Food Production Worker Required: No Accompanied by: Self Is patient in pain?: No Allergies escitalopram (From Lexapro) Adverse Reaction (Severe, Verified 05/30/25 09:34) SUICIDAL citalopram hydrobromide (From Celexa) Adverse Reaction (Verified 05/30/25 09:34) Other Medications ???Medication ???Instructions ???Recorded ???Confirmed ???Type ebupbaxu-qfp-Bv-FA 1 mg 1 tab PO DAILY 08/09/22 05/30/25 H istory tablet metoclopramide HCl 5 mg tablet 5 mg PO QACHS #60 tabs 04/19/25 Rx (Reglan) PFSH Medical History Fatty liver Renal atrophy, left Elevated liver enzymes Heart palpitations History of gestational hypertension Obesity affecting 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 dxvoez-iddxqna-jgwur reflux Surgical History Boles teeth removed Family History Grandmother Breast cancer Brain cancer Grandfather CVA (cerebral vascular accident) Mother Diabetes Heart failure MRSA carrier History of recurrent miscarriages Father Hypertension Social History adopted: No household members: spouse and children housing: house number of children: 1 current occupation: [employer] current occupational exposures/hazards: No pets and [...] 3-4 times per week duration: 15-30 minutes/day kalpana/restoration: Christianity seatbelt use: always do you feel safe at home: Yes 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 Normal [facility] Comprehensive Metabolic Prof ilon 05-30-2025 Albumin [Mass/Vol] 4.0 g/dL Normal 3.5-5.0 [facility] Comment on above: Performed By: #### L 100.0100, L500.4050 #### [facility] [address] [place], [address] Albumin/Globulin [Mass ratio] 1.5 {ratio} Normal 0.9-2.4 [facility] Comment on above: Performed By: #### L 100.0100, L500.4050 #### [facility] [address] [place], [address] ALK PHOS 56 U/L Normal 35-104 [facility] Comment on above: Performed By: #### L 100.0100, L500.4050 #### [facility] [address] [place], [address] ALT [Catalytic activity/Vol] 35 U/L Normal <=34 [facility] Comment on above: Performed By: #### L 100.0100, L500.4050 #### [facility] [address] [place], [address] AST [Catalytic activity/Vol] 29 U/L Normal <=31 [facility] Comment on above: Performed By: #### L 100.0100, L500.4050 #### [facility] [address] [place], [address] Bilirubin [Mass/Vol] 0.36 mg/dL Normal 0.00-1.30 [facility] Comment on above: Performed By: #### L 100.0100, L500.4050 #### [facility] [address] [place], [address] BUN/CRE 10.5 RATIO Normal 10-20 [facility] Comment on above: Performed By: #### L 100.0100, L500.4050 #### [facility] [address] [place], [address] Calcium [Mass/Vol] 9.3 mg/dL Normal 7.6-11.0 [facility] Comment on above: Performed By: #### L 100.0100, L500.4050 #### [facility] [address] [place], [address] Chloride [Moles/Vol] 104 mmol/L Normal 98-108 [facility] Comment on above: Performed By: #### L 100.0100, L500.4050 #### [facility] [address] [place], [address] CO2 [Moles/Vol] 20.0 mmol/L Low 21.0-32.0 [facility] Comment on above: Performed By: #### L 100.0100, L500.4050 #### [facility] [address] [place], [address] Creatinine [Mass/Vol] 0.57 mg/dL Low 0.70-1.20 [facility] Comment on above: Performed By: #### L 100.0100, L500.4050 #### [facility] [address] [place], [address] GAP 14 Normal 5-15 [facility] Comment on above: Performed By: #### L 100.0100, L500.4050 #### [facility] [address] [place], [address] GFR/1.73 sq M.predicted among non-blacks MDRD (S/P/Bld) [Vol rate/Area] 129 mL/min/{1.73_m2} Normal >60 [facility] Comment on above: Result Comment: mL/m in/1.73m2 CKD-EPI Creatinine Equation (2020) Performed By: #### L 100.0100, L500.4050 #### [facility] [address] [place], [address] Globulin (S) [Mass/Vol] 2.6 g/dL Normal 2.2-4.2 [facility] Comment on above: Performed By: #### L 100.0100, L500.4050 #### [facility] [address] [place], [address] Glucose [Mass/Vol] 92 mg/dL Normal 70-99 [facility] Comment on above: Performed By: #### L 100.0100, L500.4050 #### [facility] [address] [place], [address] Potassium [Moles/Vol] 3.8 mmol/L Normal 3.3-5.1 [facility] Comment on above: Performed By: #### L 100.0100, L500.4050 #### [facility] [address] [place], [address] Sodium [Moles/Vol] 138 mmol/L Normal 133-145 [facility] Comment on above: Performed By: #### L 100.0100, L500.4050 #### [facility] [address] [place], [address] T PROT 6.6 g/dL Normal 5.9-8.4 [facility] Comment on above: Performed By: #### L 100.0100, L500.4050 #### [facility] [address] [place], [address] Urea nitrogen [Mass/Vol] 6 mg/dL Normal 4-19 [facility] Comment on above: Performed By: #### L 100.0100, L500.4050 #### [facility] [address] [place], [address] Thyroid Stim Hormone (TSH)on 05-30-2025 TSH 0.631 uIU/mL Normal 0.300-4.200 [facility] Comment on above: Performed By: #### L 501.9520 #### [facility] [address] [place], [address] CBC W/Diff, Automatedon Absolute Lymph 1.81 X10 3/uL Normal 0.83-4.51 [facility] Comment on above: Performed By: #### L 100.0100, L500.4050 #### [facility] [address] [place], [address] Absolute Neut 5.3 X10 3/uL Normal 2.0-7.7 [facility] Comment on above: Performed By: #### L 100.0100, L500.4050 #### [facility] [address] [place], [address] Basophils/100 WBC (Bld) 0.1 % Normal 0-1 [facility] Comment on above: Performed By: #### L 100.0100, L500.4050 #### [facility] [address] [place], [address] Eosinophils/100 WBC (Bld) 0.3 % Normal 0-5 [facility] Comment on above: Performed By: #### L 100.0100, L500.4050 #### [facility] [address] [place], [address] Erythrocyte distribution width (RBC) [Ratio] 12.9 % Normal 11.6-14.6 [facility] Comment on above: Performed By: #### L 100.0100, L500.4050 #### [facility] [address] [place], [address] Hematocrit (Bld) [Volume fraction] 36.8 % Low 37-47 [facility] Comment on above: Performed By: #### L 100.0100, L500.4050 #### [facility] [address] [place], [address] Hemoglobin (Bld) [Mass/Vol] 13.0 g/dL Normal 12.0-15.0 [facility] Comment on above: Performed By: #### L 100.0100, L500.4050 #### [facility] [address] [place], [address] IG% 0.400 Normal 0.0-0.9 [facility] Comment on above: Result Comment: IG% - Immature Granulocytes (promyelocytes, myelocytes and metamyelocytes) > 1% indicates that a LEFT SHIFT is Present. Performed By: #### L 100.0100, L500.4050 #### [facility] [address] [place], [address] Lymphocytes/100 WBC (Bld) 23.5 % Normal 19-41 [facility] Comment on above: Performed By: #### L 100.0100, L500.4050 #### [facility] [address] [place], [address] MCH (RBC) [Entitic mass] 31.0 pg Normal 27.0-32.0 [facility] Comment on above: Performed By: #### L 100.0100, L500.4050 #### [facility] [address] [place], [address] MCHC (RBC) [Mass/Vol] 35.3 g/dL Normal 32-36 [facility] Comment on above: Performed By: #### L 100.0100, L500.4050 #### [facility] [address] [place], [address] MCV (RBC) [Entitic vol] 87.6 fL Normal 81-99 [facility] Comment on above: Performed By: #### L 100.0100, L500.4050 #### [facility] [address] [place], [address] Monocytes/100 WBC (Bld) 6.7 % Normal 0-10 [facility] Comment on above: Performed By: #### L 100.0100, L500.4050 #### [facility] [address] [place], [address] Neutrophils/100 WBC (Bld) 69.0 % Normal 47-70 [facility] Comment on above: Performed By: #### L 100.0100, L500.4050 #### [facility] [address] [place], [address] Nucleated RBC (Bld) [#/Vol] 0 10*3/uL Normal 0-5 [facility] Comment on above: Performed By: #### L 100.0100, L500.4050 #### [facility] [address] [place], [address] Platelet mean volume (Bld) [Entitic vol] 10.3 fL Normal 6.2-12.0 [facility] Comment on above: Performed By: #### L 100.0100, L500.4050 #### [facility] [address] [place], [address] Platelets (Bld) [#/Vol] 198 10*3/uL Normal 150-450 [facility] Comment on above: Performed By: #### L 100.0100, L500.4050 #### [facility] [address] [place], [address] RBC (Bld) [#/Vol] 4.20 10*6/uL Normal 4.2-5.4 [facility] Comment on above: Performed By: #### L 100.0100, L500.4050 #### [facility] [address] [place], [address] RDW SD 39.9 fl Normal 35.1-43.9 [facility] Comment on above: Performed By: #### L 100.0100, L500.4050 #### [facility] [address] [place], [address] WBC (Bld) [#/Vol] 7.7 10*3/uL Normal 4.4-11.0 [facility] Comment on above: Performed By: #### L 100.0100, L500.4050 #### [facility] [address] [place], [address] Comprehensive Metabolic Prof [facility] 05-14-2025 Albumin [Mass/Vol] 4.2 g/dL Normal 3.5-5.0 [facility] Comment on above: Performed By: #### L 100.0100, L500.4050 #### [facility] [address] [place], [address] Albumin/Globulin [Mass ratio] 1.5 {ratio} Normal 0.9-2.4 [facility] Comment on above: Performed By: #### L 100.0100, L500.4050 #### [facility] [address] [place], [address] ALK PHOS 61 U/L Normal 35-104 [facility] Comment on above: Performed By: #### L 100.0100, L500.4050 #### [facility] [address] [place], [address] ALT [Catalytic activity/Vol] 47 U/L High <=34 [facility] Comment on above: Performed By: #### L 100.0100, L500.4050 #### [facility] [address] [place], [address] AST [Catalytic activity/Vol] 36 U/L High <=31 [facility] Comment on above: Performed By: #### L 100.0100, L500.4050 #### [facility] [address] [place], [address] Bilirubin [Mass/Vol] 0.52 mg/dL Normal 0.00-1.30 [facility] Comment on above: Performed By: #### L 100.0100, L500.4050 #### [facility] [address] [place], [address] BUN/CRE 10.7 RATIO Normal 10-20 [facility] Comment on above: Performed By: #### L 100.0100, L500.4050 #### [facility] [address] [place], [address] Calcium [Mass/Vol] 9.5 mg/dL Normal 7.6-11.0 [facility] Comment on above: Performed By: #### L 100.0100, L500.4050 #### [facility] [address] [place], [address] Chloride [Moles/Vol] 102 mmol/L Normal 98-108 [facility] Comment on above: Performed By: #### L 100.0100, L500.4050 #### [facility] [address] [place], [address] CO2 [Moles/Vol] 18.6 mmol/L Low 21.0-32.0 [facility] Comment on above: Performed By: #### L 100.0100, L500.4050 #### [facility] [address] [place], [address] Creatinine [Mass/Vol] 0.66 mg/dL Low 0.70-1.20 [facility] Comment on above: Performed By: #### L 100.0100, L500.4050 #### [facility] [address] [place], [address] GAP 16 High 5-15 [facility] Comment on above: Performed By: #### L 100.0100, L500.4050 #### [facility] [address] [place], [address] GFR/1.73 sq M.predicted among non-blacks MDRD (S/P/Bld) [Vol rate/Area] 125 mL/min/{1.73_m2} Normal >60 [facility] Comment on above: Result Comment: mL/m in/1.73m2 CKD-EPI Creatinine Equation (2020) Performed By: #### L 100.0100, L500.4050 #### [facility] [address] [place], [address] Globulin (S) [Mass/Vol] 2.8 g/dL Normal 2.2-4.2 [facility] Comment on above: Performed By: #### L 100.0100, L500.4050 #### [facility] [address] [place], [address] Glucose [Mass/Vol] 92 mg/dL Normal 70-99 [facility] Comment on above: Performed By: #### L 100.0100, L500.4050 #### [facility] [address] [place], [address] Potassium [Moles/Vol] 3.8 mmol/L Normal 3.3-5.1 [facility] Comment on above: Performed By: #### L 100.0100, L500.4050 #### [facility] [address] [place], [address] Sodium [Moles/Vol] 137 mmol/L Normal 133-145 [facility] Comment on above: Performed By: #### L 100.0100, L500.4050 #### [facility] [address] [place], [address] T PROT 7.0 g/dL Normal 5.9-8.4 [facility] Comment on above: Performed By: #### L 100.0100, L500.4050 #### [facility] [address] [place], [address] Urea nitrogen [Mass/Vol] 7 mg/dL Normal 4-19 [facility] Comment on above: Performed By: #### L 100.0100, L500.4050 #### [facility] [address] [place], [address] Children'S Tutor Office Visit Reporton 05-14-2025 Children'S Tutor Office Visit Report [facility] [address], [address] [place] [address] OFFICE VISIT Date of Service: 05/14/25 MR#: [id number] Acct: [id number] Name: LUZ OLIVEIRA Rep #: [id number] : 2000 Provider: Dr. Rama Trammell DO Age/Sex: 24/F Location: [facility] Status: Signed Intake Vital Signs 05/07/25 14:40 05/14/25 14:48 05/14/25 14:48 Height 5 ft 1 in 5 ft 1 in 5 ft 1 in Weight: 185 lb 1 oz BMI 34.9 BP 100/52 L Intake Visit Reasons: 14wk OB, elevated liver enzymes cbc/cmp FU Food Production Worker Required: No Is patient in pain?: No Allergies escitalopram (From Lexapro) Adverse Reaction (Severe, Verified 05/14/25 14:48) SUICIDAL citalopram hydrobromide (From Celexa) Adverse Reaction (Verified 05/14/25 14:48) Other Medications ???Medication ???Instructions ???Recorded ???Confirmed ???Type vqsdxpne-nun-Pz-FA 1 mg 1 tab PO DAILY 08/09/22 05/14/25 H istory tablet metoclopramide HCl 5 mg tablet 5 mg PO QACHS #60 tabs 07/10/25 08 /04/25 Rx (Reglan) Last Menstrual Period: 02/02/25 Zika: Zika virus screening: Negative : No PFSH PFSH Medical History Congenital puqxsz-xpegnbp-phugw reflux Surgical History Boles teeth removed Family History Grandmother Breast cancer Brain cancer Grandfather CVA (cerebral vascular accident) Mother Diabetes Heart failure MRSA carrier History of recurrent miscarriages Father Hypertension Social History adopted: No household members: spouse and children housing: house number of children: 1 current occupation: [employer] current occupational exposures/hazards: No pets and [...] 3-4 times per week duration: 15-30 minutes/day kalpana/restoration: Christianity seatbelt use: always do you feel safe at home: Yes 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 (more content not included)... Normal [facility] CBC W/Diff, Automatedon 07-2 Absolute Lymph 1.24 X10 3/uL Normal 0.83-4.51 [facility] Comment on above: Performed By: #### L 100.0100, L500.4050 #### [facility] [address] [place], [address] Absolute Neut 6.2 X10 3/uL Normal 2.0-7.7 [facility] Comment on above: Performed By: #### L 100.0100, L500.4050 #### [facility] [address] [place], [address] Basophils/100 WBC (Bld) 0.1 % Normal 0-1 [facility] Comment on above: Performed By: #### L 100.0100, L500.4050 #### [facility] [address] [place], [address] Eosinophils/100 WBC (Bld) 0.1 % Normal 0-5 [facility] Comment on above: Performed By: #### L 100.0100, L500.4050 #### [facility] [address] [place], [address] Erythrocyte distribution width (RBC) [Ratio] 12.5 % Normal 11.6-14.6 [facility] Comment on above: Performed By: #### L 100.0100, L500.4050 #### [facility] [address] [place], [address] Hematocrit (Bld) [Volume fraction] 36.6 % Low 37-47 [facility] Comment on above: Performed By: #### L 100.0100, L500.4050 #### [facility] [address] [place], [address] Hemoglobin (Bld) [Mass/Vol] 12.8 g/dL Normal 12.0-15.0 [facility] Comment on above: Performed By: #### L 100.0100, L500.4050 #### [facility] [address] [place], [address] IG% 0.500 Normal 0.0-0.9 [facility] Comment on above: Result Comment: IG% - Immature Granulocytes (promyelocytes, myelocytes and metamyelocytes) > 1% indicates that a LEFT SHIFT is Present. Performed By: #### L 100.0100, L500.4050 #### [facility] [address] [place], [address] Lymphocytes/100 WBC (Bld) 15.8 % Low 19-41 [facility] Comment on above: Performed By: #### L 100.0100, L500.4050 #### [facility] [address] [place], [address] MCH (RBC) [Entitic mass] 30.8 pg Normal 27.0-32.0 [facility] Comment on above: Performed By: #### L 100.0100, L500.4050 #### [facility] [address] [place], [address] MCHC (RBC) [Mass/Vol] 35.0 g/dL Normal 32-36 [facility] Comment on above: Performed By: #### L 100.0100, L500.4050 #### [facility] [address] [place], [address] MCV (RBC) [Entitic vol] 88.2 fL Normal 81-99 [facility] Comment on above: Performed By: #### L 100.0100, L500.4050 #### [facility] [address] [place], [address] Monocytes/100 WBC (Bld) 5.0 % Normal 0-10 [facility] Comment on above: Performed By: #### L 100.0100, L500.4050 #### [facility] [address] [place], [address] Neutrophils/100 WBC (Bld) 78.5 % High 47-70 [facility] Comment on above: Performed By: #### L 100.0100, L500.4050 #### [facility] [address] [place], [address] Nucleated RBC (Bld) [#/Vol] 0 10*3/uL Normal 0-5 [facility] Comment on above: Performed By: #### L 100.0100, L500.4050 #### [facility] [address] [place], [address] Platelet mean volume (Bld) [Entitic vol] 10.7 fL Normal 6.2-12.0 [facility] Comment on above: Performed By: #### L 100.0100, L500.4050 #### [facility] [address] [place], [address] Platelets (Bld) [#/Vol] 180 10*3/uL Normal 150-450 [facility] Comment on above: Performed By: #### L 100.0100, L500.4050 #### [facility] [address] [place], [address] RBC (Bld) [#/Vol] 4.15 10*6/uL Low 4.2-5.4 [facility] Comment on above: Performed By: #### L 100.0100, L500.4050 #### [facility] [address] [place], [address] RDW SD 39.5 fl Normal 35.1-43.9 [facility] Comment on above: Performed By: #### L 100.0100, L500.4050 #### [facility] [address] [place], [address] WBC (Bld) [#/Vol] 7.8 10*3/uL Normal 4.4-11.0 [facility] Comment on above: Performed By: #### L 100.0100, L500.4050 #### [facility] [address] [place], [address] Comprehensive Metabolic Prof [facility] 05-07-2025 Albumin [Mass/Vol] 4.2 g/dL Normal 3.5-5.0 [facility] Comment on above: Performed By: #### L 100.0100, L500.4050 #### [facility] [address] [place], [address] Albumin/Globulin [Mass ratio] 1.6 {ratio} Normal 0.9-2.4 [facility] Comment on above: Performed By: #### L 100.0100, L500.4050 #### [facility] [address] [place], [address] ALK PHOS 62 U/L Normal 35-104 [facility] Comment on above: Performed By: #### L 100.0100, L500.4050 #### [facility] [address] [place], [address] ALT [Catalytic activity/Vol] 58 U/L High <=34 [facility] Comment on above: Performed By: #### L 100.0100, L500.4050 #### [facility] [address] [place], [address] AST [Catalytic activity/Vol] 43 U/L High <=31 [facility] Comment on above: Performed By: #### L 100.0100, L500.4050 #### [facility] [address] [place], [address] Bilirubin [Mass/Vol] 0.56 mg/dL Normal 0.00-1.30 [facility] Comment on above: Performed By: #### L 100.0100, L500.4050 #### [facility] [address] [place], [address] BUN/CRE 10.7 RATIO Normal 10-20 [facility] Comment on above: Performed By: #### L 100.0100, L500.4050 #### [facility] [address] [place], [address] Calcium [Mass/Vol] 9.5 mg/dL Normal 7.6-11.0 [facility] Comment on above: Performed By: #### L 100.0100, L500.4050 #### [facility] [address] [place], [address] Chloride [Moles/Vol] 102 mmol/L Normal 98-108 [facility] Comment on above: Performed By: #### L 100.0100, L500.4050 #### [facility] [address] [place], [address] CO2 [Moles/Vol] 17.7 mmol/L Low 21.0-32.0 [facility] Comment on above: Performed By: #### L 100.0100, L500.4050 #### [facility] [address] [place], [address] Creatinine [Mass/Vol] 0.59 mg/dL Low 0.70-1.20 [facility] Comment on above: Performed By: #### L 100.0100, L500.4050 #### [facility] [address] [place], [address] GAP 16 High 5-15 [facility] Comment on above: Performed By: #### L 100.0100, L500.4050 #### [facility] [address] [place], [address] GFR/1.73 sq M.predicted among non-blacks MDRD (S/P/Bld) [Vol rate/Area] 128 mL/min/{1.73_m2} Normal >60 [facility] Comment on above: Result Comment: mL/m in/1.73m2 CKD-EPI Creatinine Equation (2020) Performed By: #### L 100.0100, L500.4050 #### [facility] [address] [place], [address] Globulin (S) [Mass/Vol] 2.7 g/dL Normal 2.2-4.2 [facility] Comment on above: Performed By: #### L 100.0100, L500.4050 #### [facility] [address] [place], [address] Glucose [Mass/Vol] 110 mg/dL High 70-99 [facility] Comment on above: Performed By: #### L 100.0100, L500.4050 #### [facility] [address] [place], [address] Potassium [Moles/Vol] 3.7 mmol/L Normal 3.3-5.1 [facility] Comment on above: Performed By: #### L 100.0100, L500.4050 #### [facility] [address] [place], [address] Sodium [Moles/Vol] 135 mmol/L Normal 133-145 [facility] Comment on above: Performed By: #### L 100.0100, L500.4050 #### [facility] [address] [place], [address] T PROT 6.9 g/dL Normal 5.9-8.4 [facility] Comment on above: Performed By: #### L 100.0100, L500.4050 #### [facility] [address] [place], [address] Urea nitrogen [Mass/Vol] 6 mg/dL Normal 4-19 [facility] Comment on above: Performed By: #### L 100.0100, L500.4050 #### [facility] [address] [place], [address] HIVon 05-07-2025 HIV Non-Reactive Normal Nonreactive [facility] Comment on above: Result Comment: Non- Reactive Reactive Repeatedly reactive samples must be confirmed according to CDC recommended confirmatory algorithms. The subresults for either HIVAG or AHIV can be used as an aid in the selection of the confirmation algorithm for reactive samples. [facility] specimens with [facility]. Order the HIV antibody detection and differentiation: [id number] Performed By: #### L 100.0100, L500.4050 #### [facility] [address] [place], [address] Hemoglobin A1con 05-07-2025 HbA1c (Bld) [Mass fraction] 5.1 % Normal <=5.6 [facility] Comment on above: Result Comment: Norm al < 5.7 % Prediabetic 5.7 - 6.4 % Diabetic >or= 6.5 % Please note range changes. Performed By: #### L 100.0100, L500.4050 #### [facility] [address] [place], [address] Hepatitis C Antibodyon 05-07 Hepatitis C Ab Non-Reactive Normal Nonreactive [facility] Comment on above: Result Comment: Reac tive: Presumptive evidence of antibodies to HCV. Follow CDC recommendations for supplemental testing. Non-Reactive: Antibodies to HCV were not detected; does not exclude the possibility of exposure to HCV Reactive Results are presumptive evidence of antibodies to HCV. Follow CDC recommendations for supplemental testing. Order confirmation testing: HCV Quant by PCR testing - HCVPCR #[id number] Non Reactive: < 0.8 Equivocal: >/= 0.8 to < 1.0 Reactive: >/= 1.0 The CDC requires that a reactive/equivocal HCV antibody result be sent out for confirmation. HCV Quant by PCR testing. Performed By: #### L 100.0100, L500.4050 #### [facility] [address] [place], [address] L3890.6102on 05-07-2025 HEP B Surf Ag Non-Reactive Normal Nonreactive [facility] Comment on above: Result Comment: Reac tive: Presumptive evidence of HBV. Repeatedly reactive samples must be confirmed using a neutralization test ([employer] HBsAg Confirmatory Test) Non-Reactive: HBsAg not detected; does not exclude the possibility of exposure to HBV Performed By: #### L 100.0100, L500.4050 #### [facility] [address], [address] L509.4006on 05-07-2025 Rubella IgG REAC Normal Nonreactive [facility] Comment on above: Result Comment: Anti body Result: Interpretation Non-Reactive: Non-Immune Reactive: Immune The following results were obtained with the [employer] Rubella IgG assay. Results from assays of other manufacturers cannot be used interchangeably. Performed By: #### L 100.0100, L500.4050 #### [facility] [address] [facility] [place], [address] [facility] Office Visit Reporton 05-07-2025 Children[facility]S Tutor Office Visit Report [facility]'s [address], [address] [place] [address] OFFICE VISIT Date of Service: 05/07/25 MR#: [id number] Acct: [id number] Name: LUZ OLIVEIRA Rep #: [id number] : 2000 Provider: JELENA Ordonez ams Age/Sex: 24/F Location: [facility] Status: Signed Intake Vital Signs 01/02/25 18:31 04/09/25 10:40 07/28/25 14:40 Height 5 ft 1 in 5 ft 1 in 5 ft 1 in Weight: 187 lb 4 oz BMI 35.4 BP 117/83 H Intake Visit Reasons: 13wk OB Chief Complaint: 13wk OB Food Production Worker Required: No Is patient in pain?: No Allergies escitalopram (From Lexapro) Adverse Reaction (Severe, Verified 05/07/25 14:39) SUICIDAL citalopram hydrobromide (From Celexa) Adverse Reaction (Verified 05/07/25 14:39) Other Medications ???Medication ???Instructions ???Recorded ???Confirmed ???Type kjeylhxq-xkj-Sb-FA 1 mg 1 tab PO DAILY 08/09/22 05/07/25 H istory tablet metoclopramide HCl 5 mg tablet 5 mg PO QACHS #60 tabs 04/19/25 Rx (Reglan) Last Menstrual Period: 02/02/25 : No PFSH PFSH Medical History Congenital ijbqhm-grijuba-ocusn reflux Surgical History Boles teeth removed Family History Grandmother Breast cancer Brain cancer Grandfather CVA (cerebral vascular accident) Mother Diabetes Heart failure MRSA carrier History of recurrent miscarriages Father Hypertension Social History adopted: No household members: spouse and children housing: house number of children: 1 current occupation: [employer] current occupational exposures/hazards: No pets and [...] 3-4 times per week duration: 15-30 minutes/day kalpana/restoration: Christianity seatbelt use: always do you feel safe at home: Yes 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 Normal [facility] Syphilis Antibodieson 2024 Syphilis Abs Non-Reactive Normal Nonreactive [facility] Comment on above: Performed By: #### L 100.0100, L500.4050 #### [facility] [address] [place], [id number] Type AND Screenon 05-07-2025 Ab SCREEN GEL Negative Normal [facility] Comment on above: Order Comment: PN Performed By: #### L 100.0100, L500.4050 #### [facility] [address] [place], [address] Chlamydia/GC CHICHO aptimaon CHLAMY,NUC ACID Negative Normal Negative [facility] Comment on above: Performed By: #### L 100.0100 #### [facility] [address] [place], [address] GC BY NUC ACID Negative Normal Negative [facility] Comment on above: Result Comment: Perf ormed at: =G - [facility] [address] [id number] Financial Reporting Director: Rubi Snow MD, Phone: [phone] Performed By: #### L 100.0100 #### [facility] [address] [place], [address] PAP I-G w/rfx hrHPV-Aptimaon 04-12-2025 ADEQ Comment Normal . [facility] Comment on above: Order Comment: REDRA W. PREVIOUS SPECIMEN REJECTED DUE TO CLOTTED SPECIMEN. 01/02/251948 Result Comment: Sati sfactory for evaluation. Endocervical and/or squamous metaplastic cells (endocervical component) are present. Performed By: #### L 100.0100 #### [facility] [address] [place], [address] COMM . Normal . [facility] Comment on above: Order Comment: REDRA W. PREVIOUS SPECIMEN REJECTED DUE TO CLOTTED SPECIMEN. 01/02/251948 Performed By: #### L 100.0100 #### [facility] [address] [place], [address] COMMENT Comment Normal . [facility] Comment on above: Order Comment: REDRA W. PREVIOUS SPECIMEN REJECTED DUE TO CLOTTED SPECIMEN. 01/02/251948 Result Comment: This liquid based ThinPrep(R) pap test was screened with the use of an image guided system. Performed By: #### L 100.0100 #### [facility] [address] [place], [address] DIAG Comment Normal . [facility] Comment on above: Order Comment: REDRA W. PREVIOUS SPECIMEN REJECTED DUE TO CLOTTED SPECIMEN. 01/02/251948 Result Comment: NEGA TIVE FOR INTRAEPITHELIAL LESION OR MALIGNANCY. Performed By: #### L 100.0100 #### [facility] [address] [place], [place], [address] HPV RFLX Comment Normal . [facility] Comment on above: Order Comment: REDRA W. PREVIOUS SPECIMEN REJECTED DUE TO CLOTTED SPECIMEN. 01/02/251948 Result Comment: The HPV DNA reflex criteria were not met with this specimen result therefore, no HPV testing was performed. Performed at: - [facility] [id number] Financial Reporting Director: Rubi Snow MD, Phone: [phone] Performed By: #### L 100.0100 #### [facility] [address] [place], [place], [address] PAPSMR Comment Normal . [facility] Comment on above: Order Comment: [...] occur. Performed By: #### L 100.0100 #### [facility] [address] [place], [place], [address] PERFORM Comment Normal . [facility] Comment on above: Order Comment: REDRA W. PREVIOUS SPECIMEN REJECTED DUE TO CLOTTED SPECIMEN. 01/02/251948 Result Comment: Delores Lombardo, Claim Technician (ASCP) Performed By: #### L 100.0100 #### [facility] [address] [place], [place], [address] Urine Cultureon 04-11-2025 URC Mixed Gram Positive Organisms [place] Count 80,000-100,000 MIXC Mixed contaminants. Submit a new specimen if indicated. Normal [facility] Comment on above: Performed By: #### L 100.0100 #### [facility] [place], [address] Children'S Tutor Office Visit Reporton 04-09-2025 Children'S Tutor Office Visit Report [facility] [address], [address] [place] [address] OFFICE VISIT Date of Service: 04/09/25 MR#: [id number] Acct: [id number] Name: LUZ OLIVEIRA Rep #: [id number] : 2000 Provider: Dr. Geraldine storey MD Age/Sex: 24/F Location: [facility] Status: Signed Intake Vital Signs 01/02/25 18:31 03/13/25 11:49 04/09/25 10:39 04/09/25 10:40 Height 5 ft 1 in 5 ft 1 in 5 ft 1 in 5 ft 1 in Weight: 194 lb 8 oz BMI 36.7 BP 106/69 Intake Visit Reasons: *NEW* NOB LMP 02/02, KIMO 11/09 per Food Production Worker Required: No Is patient in pain?: Yes (cramping with urination) Allergies escitalopram (From Lexapro) Adverse Reaction (Severe, Verified 04/09/25 10:39) SUICIDAL citalopram hydrobromide (From Celexa) Adverse Reaction (Verified 04/09/25 10:39) Other Medications ???Medication ???Instructions ???Recorded ???Confirmed ???Type ckgdoegn-bps-Yu-FA 1 mg 1 tab PO DAILY 08/09/22 04/09/25 H istory tablet Last Menstrual Period: 02/02/25 Zika: Zika virus screening: Negative : No PFSH PFSH Medical History (Updated 04/09/25 @ 10:50 by Remedios Wong) Congenital sxzadf-dvboiin-owmwg reflux Surgical History Boles teeth removed Family History Grandmother Breast cancer Brain cancer Grandfather CVA (cerebral vascular accident) Mother Diabetes Heart failure MRSA carrier History of recurrent miscarriages Father Hypertension Social History adopted: No household members: spouse and children housing: house number of children: 1 current occupation: [employer] current occupational exposures/hazards: No pets and [...] 3-4 times per week duration: 15-30 minutes/day kalpana/restoration: Christianity seatbelt use: always do you feel safe at home: Yes 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 Date Name GA/Weeks Outcome Route Bth Weight Infant Gen Labor Lgth Anesthesia Del Locatn Provider FOB 10/11/18 Chemical 4 spontaneous 03/30/23 Amanda 39 live - full term vacuum 6lbs 1oz Female epidural [place] Delivery Date: 03/30/23 Last Updated [...] Normal am (more content not included)... Normal [facility] Protein+Creatinine Ratio,Uri neon 04-09-2025 PROT:CRE RATIO 58 mg/g CRE Normal 0-200 [facility] Comment on above: Performed By: #### L 100.0100 #### [facility] [address] [place], [address] Protein (U) [Mass/Vol] 15.6 mg/dL High 0.0-12.0 [facility] Comment on above: Performed By: #### L 100.0100 #### [facility] [address] [place], [address] Transvaginal w/Preg USon Transvaginal w/Preg US [facility] [address] [place], [place] [address] Transvaginal w/Preg US MR#: [id number] Acct: [id number] Name: LUZ OLIVEIRA Rep #: [id number] : 2000 F 24 From: Maxwell Ponce MD PCP: Care Physician,No Primary Status: REG CLI Study: Transvaginal w/Preg US Date of Exam: 03/15/25 Exam# [id number] Ordering Dr: Remedios Garcia UTILITY TECHNICIAN UTILITY TECHNICIAN -C PROCEDURE: TRANSVAGINAL W/PREG US 03/15/2025 REASON [...] follow-up. 2. Small perigestational hemorrhage. Reading Location: [facility] CC: JARAD Garcia; No Primary Care Physician Investigator Vice: Signed Normal [facility] hCG Titer Quant., Serumon HCG QUANT. 7025 mIU/mL High <9 non-preg [facility] Comment on above: Result Comment: Gest ational Age 0.2-1 Week: 5-50 mIU/mL 1-2 Weeks: 50-500 mIU/mL 2-3 Weeks: 100-5000 mIU/mL 3-4 Weeks: 500-10,000 mIU/mL 4-5 Weeks:1000-50,000 mIU/mL 5-6 Weeks: 10,000-100,000 mIU/mL 6-8 Weeks: 15,000-200,000 mIU/mL 2-3 Months:10,000-100,000 mIU/mL Performed By: #### L 100.0100 #### [facility] [address] [place], [address] Office Visit Reporton 2024 Office Visit Report [facility] [address] [place] [address] OFFICE VISIT Date of Service: 03/13/25 MR#: [id number] Acct: [id number] Patient: LUZ OLIVEIRA Rep #: [id number] : 2000 Provider: JARAD moctezuma Age/Sex: 24/F Location: [facility] Status: Signed Intake Vital Signs 01/02/25 18:31 03/13/25 11:49 Height 5 ft 1 in 5 ft 1 in Weight: 200 lb 6 oz BMI 37.8 BP 118/72 Intake Visit Reasons: Pre New OB, Confirm preg, Vitals Food Production Worker Required: No Is patient in pain?: No Allergies escitalopram (From Lexapro) Adverse Reaction (Severe, Verified 03/13/25 11:12) SUICIDAL citalopram hydrobromide (From Celexa) Adverse Reaction (Verified 03/13/25 11:12) Other Medications ???Medication ???Instructions ???Recorded ???Confirmed ???Type sieqgldc-ffu-Ea-FA 1 mg 1 tab PO DAILY 08/09/22 [...] Pt with C/O spotting since last night. [facility] notified in office. HcG and TV [...] Acute (9) Autism: Status: Acute (10) Congenital zeutxf-bzkwbuw-cqnia reflux: Status: Acute Comment: Recurrent UTI's and Kidney stones Orders: Orders hCG Titer Quant., Serum Today Remedios Garcia UTILITY TECHNICIAN, UTILITY TECHNICIAN-C O20.9 - Hemorrhage in early , unspecified [...] fallen in the past year?: No 03/13/25 6467 (more content not included)... Normal [facility] hCG Titer Quant., Serumon HCG QUANT. 3759 mIU/mL High <9 non-preg [facility] Comment on above: Result Comment: Gest ational Age 0.2-1 Week: 5-50 mIU/mL 1-2 Weeks: 50-500 mIU/mL 2-3 Weeks: 100-5000 mIU/mL 3-4 Weeks: 500-10,000 mIU/mL 4-5 Weeks:1000-50,000 mIU/mL 5-6 Weeks: 10,000-100,000 mIU/mL 6-8 Weeks: 15,000-200,000 mIU/mL 2-3 Months:10,000-100,000 mIU/mL Performed By: #### L 100.0100 #### [facility] [address] [facility] [place], [place], [address] Culture, Blood (WB)on 2024 CUB Blood cultures x2, from two different sites No growth in 5 days. Normal [facility] Comment on above: Performed By: #### M 100.678, M100.2200, L400.0001 #### [facility] [address] [facility] [place], [place], [address] Urine Cultureon 01-04-2025 URC Presumptive E. coli [place] Count 25,000-50,000 Presumptive E. coli: REACTION Ampicillin [...] TMP SMX Islt BRANDI <=20 S Normal [facility] Comment on above: Performed By: #### M 100.678, M100.2200, L400.0001 #### [facility] [address] [facility] [place], [address] Abdomen/Pelvis W IV Cont ONL Yon 01-02-2025 Abdomen/Pelvis W IV Cont ONLY [facility] [address] [place], [place] [address] Abdomen/Pelvis W IV Cont ONLY MR#: [id number] Acct: [id number] Name: LUZ OLIVEIRA Rep #: [id number] : 2000 F 24 From: Yari Reyes nd, MD PCP: Care Physician,No Primary Status: REG ER Study: Abdomen/Pelvis W IV Cont ONLY Date of Exam: Exam# [id number] Ordering Dr: Mendez Gardner DO PROCEDURE: ABDOMEN/PELVIS [...] recommended. 3. Diffuse hepatic steatosis. Reading Location: [facility] CC: Dr. Mendez Gardner, DO; No Primary Care Physician Investigator Vice: Signed Normal [facility] CBC W/Diff, Automatedon 12-10 Absolute Lymph 0.64 X10 3/uL Low 0.83-4.51 [facility] Comment on above: Order Comment: REDRA W. PREVIOUS SPECIMEN REJECTED DUE TO CLOTTED SPECIMEN. 01/02/251948 Performed By: #### L 100.0100 #### [facility] [address] [place], [address] Absolute Neut 9.4 X10 3/uL High 2.0-7.7 [facility] Comment on above: Order Comment: REDRA W. PREVIOUS SPECIMEN REJECTED DUE TO CLOTTED SPECIMEN. 01/02/251948 Performed By: #### L 100.0100 #### [facility] [address] [place], [address] Basophils/100 WBC (Bld) 0.1 % Normal 0-1 [facility] Comment on above: Order Comment: REDRA W. PREVIOUS SPECIMEN REJECTED DUE TO CLOTTED SPECIMEN. 01/02/251948 Performed By: #### L 100.0100 #### [facility] [address] [place], [address] Eosinophils/100 WBC (Bld) 0.0 % Normal 0-5 [facility] Comment on above: Order Comment: REDRA W. PREVIOUS SPECIMEN REJECTED DUE TO CLOTTED SPECIMEN. 01/02/251948 Performed By: #### L 100.0100 #### [facility] [address] [place], [address] Erythrocyte distribution width (RBC) [Ratio] 12.4 % Normal 11.6-14.6 [facility] Comment on above: Order Comment: REDRA W. PREVIOUS SPECIMEN REJECTED DUE TO CLOTTED SPECIMEN. 01/02/251948 Performed By: #### L 100.0100 #### [facility] [address] [place], [address] Hematocrit (Bld) [Volume fraction] 41.9 % Normal 37-47 [facility] Comment on above: Order Comment: REDRA W. PREVIOUS SPECIMEN REJECTED DUE TO CLOTTED SPECIMEN. 01/02/251948 Performed By: #### L 100.0100 #### [facility] [address] [place], [address] Hemoglobin (Bld) [Mass/Vol] 14.6 g/dL Normal 12.0-15.0 [facility] Comment on above: Order Comment: REDRA W. PREVIOUS SPECIMEN REJECTED DUE TO CLOTTED SPECIMEN. 01/02/251948 Performed By: #### L 100.0100 #### [facility] [address] [place], [address] IG% 0.600 Normal 0.0-0.9 [facility] Comment on above: Order Comment: REDRA W. PREVIOUS SPECIMEN REJECTED DUE TO CLOTTED SPECIMEN. 01/02/251948 Result Comment: IG% - Immature Granulocytes (promyelocytes, myelocytes and metamyelocytes) > 1% indicates that a LEFT SHIFT is Present. Performed By: #### L 100.0100 #### [facility] [address] [place], [address] Lymphocytes/100 WBC (Bld) 5.9 % Low 19-41 [facility] Comment on above: Order Comment: REDRA W. PREVIOUS SPECIMEN REJECTED DUE TO CLOTTED SPECIMEN. 01/02/251948 Performed By: #### L 100.0100 #### [facility] [address] [place], [address] MCH (RBC) [Entitic mass] 30.8 pg Normal 27.0-32.0 [facility] Comment on above: Order Comment: REDRA W. PREVIOUS SPECIMEN REJECTED DUE TO CLOTTED SPECIMEN. 01/02/251948 Performed By: #### L 100.0100 #### [facility] [address] [place], [address] MCHC (RBC) [Mass/Vol] 34.8 g/dL Normal 32-36 [facility] Comment on above: Order Comment: REDRA W. PREVIOUS SPECIMEN REJECTED DUE TO CLOTTED SPECIMEN. 01/02/251948 Performed By: #### L 100.0100 #### [facility] [address] [place], [address] MCV (RBC) [Entitic vol] 88.4 fL Normal 81-99 [facility] Comment on above: Order Comment: REDRA W. PREVIOUS SPECIMEN REJECTED DUE TO CLOTTED SPECIMEN. 01/02/251948 Performed By: #### L 100.0100 #### [facility] [address] [place], [address] Monocytes/100 WBC (Bld) 5.9 % Normal 0-10 [facility] Comment on above: Order Comment: REDRA W. PREVIOUS SPECIMEN REJECTED DUE TO CLOTTED SPECIMEN. 01/02/251948 Performed By: #### L 100.0100 #### [facility] [address] [place], [address] Neutrophils/100 WBC (Bld) 87.5 % High 47-70 [facility] Comment on above: Order Comment: REDRA W. PREVIOUS SPECIMEN REJECTED DUE TO CLOTTED SPECIMEN. 01/02/251948 Performed By: #### L 100.0100 #### [facility] [address] [place], [address] Nucleated RBC (Bld) [#/Vol] 0 10*3/uL Normal 0-5 [facility] Comment on above: Order Comment: REDRA W. PREVIOUS SPECIMEN REJECTED DUE TO CLOTTED SPECIMEN. 01/02/251948 Performed By: #### L 100.0100 #### [facility] [address] [place], [address] Platelet mean volume (Bld) [Entitic vol] 10.2 fL Normal 6.2-12.0 [facility] Comment on above: Order Comment: REDRA W. PREVIOUS SPECIMEN REJECTED DUE TO CLOTTED SPECIMEN. 01/02/251948 Performed By: #### L 100.0100 #### [facility] [address] [place], [address] Platelets (Bld) [#/Vol] 188 10*3/uL Normal 150-450 [facility] Comment on above: Order Comment: REDRA W. PREVIOUS SPECIMEN REJECTED DUE TO CLOTTED SPECIMEN. 01/02/251948 Performed By: #### L 100.0100 #### [facility] [address] [place], [address] RBC (Bld) [#/Vol] 4.74 10*6/uL Normal 4.2-5.4 [facility] Comment on above: Order Comment: REDRA W. PREVIOUS SPECIMEN REJECTED DUE TO CLOTTED SPECIMEN. 01/02/251948 Performed By: #### L 100.0100 #### [facility] [address] [place], [address] RDW SD 40.1 fl Normal 35.1-43.9 [facility] Comment on above: Order Comment: REDRA W. PREVIOUS SPECIMEN REJECTED DUE TO CLOTTED SPECIMEN. 01/02/251948 Performed By: #### L 100.0100 #### [facility] [address] [place], [address] WBC (Bld) [#/Vol] 10.8 10*3/uL Normal 4.4-11.0 [facility] Comment on above: Order Comment: REDRA W. PREVIOUS SPECIMEN REJECTED DUE TO CLOTTED SPECIMEN. 01/02/251948 Performed By: #### L 100.0100 #### [facility] [address] [place], [address] Absolute Neut Normal 2.0-7.7 [facility] Comment on above: Result Comment: This specimen has been REJECTED due to Laboratory criteria: Clotted. ED-ELVIN has been notified of need of recollection. 01/02/251947 Performed By: #### M 100.678, M100.2200, L400.0001 #### [facility] [address] [place], [address] HCT Normal 37-47 [facility] Comment on above: Result Comment: This specimen has been REJECTED due to Laboratory criteria: Clotted. ED-ELVIN has been notified of need of recollection. 01/02/251947 Performed By: #### M 100.678, M100.2200, L400.0001 #### [facility] [address] [place], [address] HGB Normal 12.0-15.0 [facility] Comment on above: Result Comment: This specimen has been REJECTED due to Laboratory criteria: Clotted. ED-ELVIN has been notified of need of recollection. 01/02/251947 Performed By: #### M 100.678, M100.2200, L400.0001 #### [facility] [address] [place], [address] MCH Normal 27.0-32.0 [facility] Comment on above: Result Comment: This specimen has been REJECTED due to Laboratory criteria: Clotted. ED-ELVIN has been notified of need of recollection. 01/02/251947 Performed By: #### M 100.678, M100.2200, L400.0001 #### [facility] [address] [place], [address] MCHC Normal 32-36 [facility] Comment on above: Result Comment: This specimen has been REJECTED due to Laboratory criteria: Clotted. ED-ELVIN has been notified of need of recollection. 01/02/251947 Performed By: #### M 100.678, M100.2200, L400.0001 #### [facility] [address] [place], [address] MCV Normal 81-99 [facility] Comment on above: Result Comment: This specimen has been REJECTED due to Laboratory criteria: Clotted. ED-ELVIN has been notified of need of recollection. 01/02/251947 Performed By: #### M 100.678, M100.2200, L400.0001 #### [facility] [address] [place], [address] NEUT% Normal 47-70 [facility] Comment on above: Result Comment: This specimen has been REJECTED due to Laboratory criteria: Clotted. ED-ELVIN has been notified of need of recollection. 01/02/251947 Performed By: #### M 100.678, M100.2200, L400.0001 #### [facility] [address] [place], [address] PLT Normal 150-450 [facility] Comment on above: Result Comment: This specimen has been REJECTED due to Laboratory criteria: Clotted. ED-ELVIN has been notified of need of recollection. 01/02/251947 Performed By: #### M 100.678, M100.2200, L400.0001 #### [facility] [address] [place], [address] RBC Normal 4.2-5.4 [facility] Comment on above: Result Comment: This specimen has been REJECTED due to Laboratory criteria: Clotted. ED-ELVIN has been notified of need of recollection. 01/02/251947 Performed By: #### M 100.678, M100.2200, L400.0001 #### [facility] [address] [place], [address] RDW CV Normal 11.6-14.6 [facility] Comment on above: Result Comment: This specimen has been REJECTED due to Laboratory criteria: Clotted. ED-ELVIN has been notified of need of recollection. 01/02/251947 Performed By: #### M 100.678, M100.2200, L400.0001 #### [facility] [address] [place], [address] RDW SD Normal 35.1-43.9 [facility] Comment on above: Result Comment: This specimen has been REJECTED due to Laboratory criteria: Clotted. ED-ELVIN has been notified of need of recollection. 01/02/251947 Performed By: #### M 100.678, M100.2200, L400.0001 #### [facility] [address] [place], [address] WBC Normal 4.4-11.0 [facility] Comment on above: Result Comment: This specimen has been REJECTED due to Laboratory criteria: Clotted. ED-ELVIN has been notified of need of recollection. 01/02/251947 Performed By: #### M 100.678, M100.2200, L400.0001 #### [facility] [address] [place], [address] Comprehensive Metabolic Prof ilon 01-02-2025 Albumin [Mass/Vol] 4.5 g/dL Normal 3.5-5.0 [facility] Comment on above: Performed By: #### M 100.678, M100.2200, L400.0001 #### [facility] [address] [place], [address] Albumin/Globulin [Mass ratio] 1.3 {ratio} Normal 0.9-2.4 [facility] Comment on above: Performed By: #### M 100.678, M100.2200, L400.0001 #### [facility] [address] [place], [address] ALK PHOS 69 U/L Normal 35-104 [facility] Comment on above: Performed By: #### M 100.678, M100.2200, L400.0001 #### [facility] [address] [place], [address] ALT [Catalytic activity/Vol] 50 U/L High <=34 [facility] Comment on above: Performed By: #### M 100.678, M100.2200, L400.0001 #### [facility] [address] [place], [address] AST [Catalytic activity/Vol] 28 U/L Normal <=31 [facility] Comment on above: Performed By: #### M 100.678, M100.2200, L400.0001 #### [facility] [address] [place], [address] Bilirubin [Mass/Vol] 0.96 mg/dL Normal 0.00-1.30 [facility] Comment on above: Performed By: #### M 100.678, M100.2200, L400.0001 #### [facility] [address] [place], [address] BUN/CRE 13.3 RATIO Normal 10-20 [facility] Comment on above: Performed By: #### M 100.678, M100.2200, L400.0001 #### [facility] [address] [place], [address] Calcium [Mass/Vol] 9.6 mg/dL Normal 7.6-11.0 [facility] Comment on above: Performed By: #### M 100.678, M100.2200, L400.0001 #### [facility] [address] [place], [address] Chloride [Moles/Vol] 102 mmol/L Normal 98-108 [facility] Comment on above: Performed By: #### M 100.678, M100.2200, L400.0001 #### [facility] [address] [place], [address] CO2 [Moles/Vol] 23.0 mmol/L Normal 21.0-32.0 [facility] Comment on above: Performed By: #### M 100.678, M100.2200, L400.0001 #### [facility] [address] [place], [address] Creatinine [Mass/Vol] 0.93 mg/dL Normal 0.70-1.20 [facility] Comment on above: Performed By: #### M 100.678, M100.2200, L400.0001 #### [facility] [address] [place], [address] ECRCL 94.15 ml/min Normal 50-250 [facility] Comment on above: Performed By: #### M 100.678, M100.2200, L400.0001 #### [facility] [address] [place], [address] GAP 13 Normal 5-15 [facility] Comment on above: Performed By: #### M 100.678, M100.2200, L400.0001 #### [facility] [address] [place], [address] GFR/1.73 sq M.predicted among non-blacks MDRD (S/P/Bld) [Vol rate/Area] 87 mL/min/{1.73_m2} Normal >60 [facility] Comment on above: Result Comment: mL/m in/1.73m2 CKD-EPI Creatinine Equation (2020) Performed By: #### M 100.678, M100.2200, L400.0001 #### [facility] [address] [place], [address] Globulin (S) [Mass/Vol] 3.4 g/dL Normal 2.2-4.2 [facility] Comment on above: Performed By: #### M 100.678, M100.2200, L400.0001 #### [facility] [address] [place], [address] Glucose [Mass/Vol] 109 mg/dL High 70-99 [facility] Comment on above: Performed By: #### M 100.678, M100.2200, L400.0001 #### [facility] [address] [place], [address] Potassium [Moles/Vol] 3.4 mmol/L Normal 3.3-5.1 [facility] Comment on above: Performed By: #### M 100.678, M100.2200, L400.0001 #### [facility] [address] [place], [address] Sodium [Moles/Vol] 138 mmol/L Normal 133-145 [facility] Comment on above: Performed By: #### M 100.678, M100.2200, L400.0001 #### [facility] [address] [place], [address] T PROT 7.9 g/dL Normal 5.9-8.4 [facility] Comment on above: Performed By: #### M 100.678, M100.2200, L400.0001 #### [facility] [address] [place], [address] Urea nitrogen [Mass/Vol] 12 mg/dL Normal 4-19 [facility] Comment on above: Performed By: #### M 100.678, M100.2200, L400.0001 #### [facility] [address] [place], [address] Emergency Department Summary on 01-02-[address] [facility] Medical Records Department [address] [place] [address] Emergency Department Summary 01/02/25 MR#: [id number] Acct: [id number] Name: LUZ OLIVEIRA Rep #: [id number] : 2000 24 From: Mendez Gardner DO [...] States that she tried Azo at home. [facility] Medical History Lumbar radiculopathy, acute Acute lumbar myofascial strain Blunt abdominal trauma Chest wall contusion Cervical strain, acute Concussion without loss of consciousness Crushing injury of right great toe, initial encounter Congenital czsomc-geclxqj-ttfof reflux Home Medications ???Medication ???Instructions ???Recorded ???Last Taken ???Type kmrndxiq-iko-Af-FA 1 mg 1 tab PO DAILY 08/09/22 [...] (cerebral vascular accident) Mother Diabetes Surgical History Boles teeth removed Social History household members: spouse [...] following commands knew that she was at [facility] years 2024 Skin:, No rashes or [...] Respiratory Rat (more content not included)... Normal [facility] Lactic Acidon 01-02-2025 Lactate [Moles/Vol] 1.1 mmol/L Normal 0.0-2.0 [facility] Comment on above: Order Comment: Y Performed By: #### M 100.678, M100.2200, L400.0001 #### [facility] [address] [facility] [place], [place], [address] Lipaseon 01-02-2025 Lipase [Catalytic activity/Vol] 19 U/L Normal 13-75 [facility] Comment on above: Result Comment: Pletiny paez note: LIPASE revised reference range effective 23. New Lipase methodology. Expected to produce lower values than the previous assay method. NEW Reference Range: 13 - 75 U/L Performed By: #### M 100.678, M100.2200, L400.0001 #### [facility] [address] [place], [address] M100.678on 01-02-2025 M100.678 Pending SARS-CoV-2 (COVID 19) Negative INFLUENZA A Negative INFLUENZA B Negative RSV PCR Negative Normal [facility] Comment on above: Performed By: #### M 100.678, M100.2200, L400.0001 #### [facility] [address] [place], [address] Partial Thromboplast Timeon 01-02-2025 aPTT Coag (Bld) [Time] 33.7 s Normal 24.1-36.2 [facility] Comment on above: Performed By: #### M 100.678, M100.2200, L400.0001 #### [facility] [address] [place], [address] ,Serum,hCG Quali.on 01-02-2025 HCG, SERUM QUAL Negative Normal [facility] Comment on above: Performed By: #### M 100.678, M100.2200, L400.0001 #### [facility] [address] [place], [address] Prothrombin Time w/INRon INR Coag (PPP) [Relative time] 1.1 {INR} Normal [facility] Comment on above: Performed By: #### M 100.678, M100.2200, L400.0001 #### [facility] [address] [place], [address] PT Coag (PPP) [Time] 14.5 s Normal 11.7-14.9 [facility] Comment on above: Performed By: #### M 100.678, M100.2200, L400.0001 #### [facility] [address] [place], [address] Urinalysis, Completeon 01-02 EPI,SQUAMOUS 5-10 SEEN Normal 5-10 [facility] Comment on above: Order Comment: CLEAN CATCH Performed By: #### M 100.678, M100.2200, L400.0001 #### [facility] [address] [place], [address] BACTERIA 3+ /hpf Normal None Seen [facility] Comment on above: Order Comment: CLEAN CATCH Performed By: #### M 100.678, M100.2200, L400.0001 #### [facility] [address] [place], [address] RBC 5-10 SEEN Normal 0-5 [facility] Comment on above: Order Comment: CLEAN CATCH Performed By: #### M 100.678, M100.2200, L400.0001 #### [facility] [address] [place], [address] WBC >100 SEEN Normal 0-5 [facility] Comment on above: Order Comment: CLEAN CATCH Performed By: #### M 100.678, M100.2200, L400.0001 #### [facility] [address] [place], [address] Mucus Ql (Urine sed) 0 SEEN Normal [facility] Comment on above: Order Comment: CLEAN CATCH Performed By: #### M 100.678, M100.2200, L400.0001 #### [facility] [address] [place], [address] XR SPINE CERVICAL AP/LATon 0 02-19-2024 XR [...] 02/19/2024 1:39:46 AM Ordering Provider: KIRSTEN Miller [facility] ([place]) B12on 10-19-2023 Cobalamin (Vitamin B12) [Mass/Vol] 279 pg/mL Normal 211-911 [facility] ([place]) Comment on above: Performed By: #### G FR, LIPID, HFP, A1C, IBC, TSH, CBC, ANEU, FT4, FERR, ADIFF, CMP, FE, VIDH, FT3 #### [address] [address] #### FOL, B12 #### [address] [address] FOLon 10-19-2023 Folate 8.29 ng/mL Normal 5.38-24.00 [facility] ([place]) Comment on above: Performed By: #### G FR, LIPID, HFP, A1C, IBC, TSH, CBC, ANEU, FT4, FERR, ADIFF, CMP, FE, VIDH, FT3 #### [address] [address] #### FOL, B12 #### [address] [address] .Auto Diffon 10-15-2023 Basophil, Absolute 0.0 10 3/mcL Normal 0.0-0.2 [facility]) Comment on above: Performed By: #### G FR, LIPID, HFP, A1C, IBC, TSH, CBC, ANEU, FT4, FERR, ADIFF, CMP, FE, VIDH, FT3 #### [address] [address] #### FOL, B12 #### [address] [address] Basophils/100 WBC (Bld) 0.2 % Normal 0.0-2.5 [facility] ([place]) Comment on above: Performed By: #### G FR, LIPID, HFP, A1C, IBC, TSH, CBC, ANEU, FT4, FERR, ADIFF, CMP, FE, VIDH, FT3 #### [address] [address] #### FOL, B12 #### [address] [address] Eosinophil, Absolute 0.0 10 3/mcL Normal 0.0-0.4 [facility] ([place]) Comment on above: Performed By: #### G FR, LIPID, HFP, A1C, IBC, TSH, CBC, ANEU, FT4, FERR, ADIFF, CMP, FE, VIDH, FT3 #### [address] [address] #### FOL, B12 #### [address] [address] Eosinophils/100 WBC (Bld) 0.6 % Normal 0.0-7.0 [facility] ([place]) Comment on above: Performed By: #### G FR, LIPID, HFP, A1C, IBC, TSH, CBC, ANEU, FT4, FERR, ADIFF, CMP, FE, VIDH, FT3 #### [address] [address] #### FOL, B12 #### [address] [address] Lymphocyte, Absolute 1.5 10 3/mcL Normal 0.8-3.9 [facility] ([place]) Comment on above: Performed By: #### G FR, LIPID, HFP, A1C, IBC, TSH, CBC, ANEU, FT4, FERR, ADIFF, CMP, FE, VIDH, FT3 #### [address] [address] #### FOL, B12 #### [address] [address] Lymphocytes/100 WBC (Bld) 23.2 % Normal 10.0-50.0 [facility] ([place]) Comment on above: Performed By: #### G FR, LIPID, HFP, A1C, IBC, TSH, CBC, ANEU, FT4, FERR, ADIFF, CMP, FE, VIDH, FT3 #### [address] [address] #### FOL, B12 #### [address] [address] Monocyte, Absolute 0.4 10 3/mcL Normal 0.2-1.0 [facility] ([place]) Comment on above: Performed By: #### G FR, LIPID, HFP, A1C, IBC, TSH, CBC, ANEU, FT4, FERR, ADIFF, CMP, FE, VIDH, FT3 #### [address] [address] #### FOL, B12 #### [address] [address] Monocytes/100 WBC (Bld) 5.6 % Normal 1.7-13.0 [facility] ([place]) Comment on above: Performed By: #### G FR, LIPID, HFP, A1C, IBC, TSH, CBC, ANEU, FT4, FERR, ADIFF, CMP, FE, VIDH, FT3 #### [address] [address] #### FOL, B12 #### [address] [address] Neutrophils/100 WBC (Bld) 70.4 % Normal 37.0-80.0 [facility] ([place]) Comment on above: Performed By: #### G FR, LIPID, HFP, A1C, IBC, TSH, CBC, ANEU, FT4, FERR, ADIFF, CMP, FE, VIDH, FT3 #### [address] [address] #### FOL, B12 #### [address] [address] .GFRon 10-15-2023 GFR Non- 73 ml/min/1.73sqm Normal [facility] ([place]) Comment on above: Result Comment: GFR Population [...] ADIFF, CMP, FE, VIDH, FT3 #### [address] [address] #### FOL, B12 #### [address] [address] GFR 89 ml/min/1.73sqm Normal [facility] ([place]) Comment on above: Result Comment: GFR Population [...] ADIFF, CMP, FE, VIDH, FT3 #### [address] [address] #### FOL, B12 #### [address] [address] .NEUABSon 10-15-2023 Neutrophil, Absolute 4.5 10 3/mcL Normal 2.9-6.2 [facility] ([place]) Comment on above: Performed By: #### G FR, LIPID, HFP, A1C, IBC, TSH, CBC, ANEU, FT4, FERR, ADIFF, CMP, FE, VIDH, FT3 #### [address] [address] #### FOL, B12 #### [address] [address] A1Con 10-15-2023 HbA1c (Bld) [Mass fraction] 4.9 % Normal 4.3-6.4 [facility] ([place]) Comment on above: Performed By: #### G FR, LIPID, HFP, A1C, IBC, TSH, CBC, ANEU, FT4, FERR, ADIFF, CMP, FE, VIDH, FT3 #### [address] [address] #### FOL, B12 #### [place] [address] CBCon 10-15-2023 Erythrocyte distribution width (RBC) [Ratio] 14.1 % Normal 11.5-14.5 [facility] ([place]) Comment on above: Performed By: #### G FR, LIPID, HFP, A1C, IBC, TSH, CBC, ANEU, FT4, FERR, ADIFF, CMP, FE, VIDH, FT3 #### [address] [address] #### FOL, B12 #### [address] [address] Hematocrit (Bld) [Volume fraction] 42.4 % Normal 37.0-47.0 [facility] ([place]) Comment on above: Performed By: #### G FR, LIPID, HFP, A1C, IBC, TSH, CBC, ANEU, FT4, FERR, ADIFF, CMP, FE, VIDH, FT3 #### [address] [address] #### FOL, B12 #### [address] [address] Hgb 14.5 G/dL Normal 12.0-16.0 [facility] ([place]) Comment on above: Performed By: #### G FR, LIPID, HFP, A1C, IBC, TSH, CBC, ANEU, FT4, FERR, ADIFF, CMP, FE, VIDH, FT3 #### [address] [address] #### FOL, B12 #### [address] [address] MCH (RBC) [Entitic mass] 30.8 pg Normal 27.0-31.2 [facility] ([place]) Comment on above: Performed By: #### G FR, LIPID, HFP, A1C, IBC, TSH, CBC, ANEU, FT4, FERR, ADIFF, CMP, FE, VIDH, FT3 #### [address] [address] #### FOL, B12 #### [address] [address] MCHC 34.2 G/dL Normal 33.0-37.0 [facility] ([place]) Comment on above: Performed By: #### G FR, LIPID, HFP, A1C, IBC, TSH, CBC, ANEU, FT4, FERR, ADIFF, CMP, FE, VIDH, FT3 #### [address] [address] #### FOL, B12 #### [address] [address] MCV (RBC) [Entitic vol] 90.3 fL Normal 80.0-94.0 [facility] ([place]) Comment on above: Performed By: #### G FR, LIPID, HFP, A1C, IBC, TSH, CBC, ANEU, FT4, FERR, ADIFF, CMP, FE, VIDH, FT3 #### [address] [address] #### FOL, B12 #### [address] [address] Platelet 237 10 3/mcL Normal 130-400 [facility] ([place]) Comment on above: Performed By: #### G FR, LIPID, HFP, A1C, IBC, TSH, CBC, ANEU, FT4, FERR, ADIFF, CMP, FE, VIDH, FT3 #### [address] [address] #### FOL, B12 #### [address] [address] Platelet mean volume (Bld) [Entitic vol] 8.6 fL Normal 7.4-10.4 [facility] ([place]) Comment on above: Performed By: #### G FR, LIPID, HFP, A1C, IBC, TSH, CBC, ANEU, FT4, FERR, ADIFF, CMP, FE, VIDH, FT3 #### [address] [address] #### FOL, B12 #### [address] [address] RBC 4.69 10 6/mcL Normal 4.20-5.40 [facility] ([place]) Comment on above: Performed By: #### G FR, LIPID, HFP, A1C, IBC, TSH, CBC, ANEU, FT4, FERR, ADIFF, CMP, FE, VIDH, FT3 #### [address] [address] #### FOL, B12 #### [place] [address] WBC 6.4 10 3/mcL Normal 4.6-10.8 [facility] ([place]) Comment on above: Performed By: #### G FR, LIPID, HFP, A1C, IBC, TSH, CBC, ANEU, FT4, FERR, ADIFF, CMP, FE, VIDH, FT3 #### [address] [address] #### FOL, B12 #### [address] [address] CMPon 10-15-2023 BUN/Creatinine Ratio 17 ratio Normal 7-27 [facility] ([place]) Comment on above: Performed By: #### G FR, LIPID, HFP, A1C, IBC, TSH, CBC, ANEU, FT4, FERR, ADIFF, CMP, FE, VIDH, FT3 #### [address] [address] #### FOL, B12 #### [address] [address] Calcium [Mass/Vol] 9.5 mg/dL Normal 8.4-10.2 [facility] ([place]) Comment on above: Performed By: #### G FR, LIPID, HFP, A1C, IBC, TSH, CBC, ANEU, FT4, FERR, ADIFF, CMP, FE, VIDH, FT3 #### [address] [address] #### FOL, B12 #### [address] [address] Chloride [Moles/Vol] 101 mmol/L Normal 98-107 [facility] ([place]) Comment on above: Performed By: #### G FR, LIPID, HFP, A1C, IBC, TSH, CBC, ANEU, FT4, FERR, ADIFF, CMP, FE, VIDH, FT3 #### [address] [address] #### FOL, B12 #### [address] [address] CO2 [Moles/Vol] 27 mmol/L Normal 22-29 [facility] ([place]) Comment on above: Performed By: #### G FR, LIPID, HFP, A1C, IBC, TSH, CBC, ANEU, FT4, FERR, ADIFF, CMP, FE, VIDH, FT3 #### [address] [address] #### FOL, B12 #### [address] [address] Creatinine [Mass/Vol] 0.94 mg/dL Normal 0.55-1.02 [facility] ([place]) Comment on above: Performed By: #### G FR, LIPID, HFP, A1C, IBC, TSH, CBC, ANEU, FT4, FERR, ADIFF, CMP, FE, VIDH, FT3 #### [address] [address] #### FOL, B12 #### [address] [address] Electrolyte Balance 13.0 mEq/L Normal 4.0-15.0 [facility] ([place]) Comment on above: Performed By: #### G FR, LIPID, HFP, A1C, IBC, TSH, CBC, ANEU, FT4, FERR, ADIFF, CMP, FE, VIDH, FT3 #### [address] [address] #### FOL, B12 #### [address] [address] Glucose [Mass/Vol] 92 mg/dL Normal 70-105 [facility] ([place]) Comment on above: Performed By: #### G FR, LIPID, HFP, A1C, IBC, TSH, CBC, ANEU, FT4, FERR, ADIFF, CMP, FE, VIDH, FT3 #### [address] [address] #### FOL, B12 #### [address] [address] Potassium [Moles/Vol] 4.2 mmol/L Normal 3.5-5.1 [facility] ([place]) Comment on above: Performed By: #### G FR, LIPID, HFP, A1C, IBC, TSH, CBC, ANEU, FT4, FERR, ADIFF, CMP, FE, VIDH, FT3 #### [address] [address] #### FOL, B12 #### [address] [address] Sodium [Moles/Vol] 141 mmol/L Normal 136-145 [facility] ([place]) Comment on above: Performed By: #### G FR, LIPID, HFP, A1C, IBC, TSH, CBC, ANEU, FT4, FERR, ADIFF, CMP, FE, VIDH, FT3 #### [address] [address] #### FOL, B12 #### [address] [address] Urea nitrogen [Mass/Vol] 16 mg/dL Normal 7-18 [facility] ([place]) Comment on above: Performed By: #### G FR, LIPID, HFP, A1C, IBC, TSH, CBC, ANEU, FT4, FERR, ADIFF, CMP, FE, VIDH, FT3 #### [address] [address] #### FOL, B12 #### [address] [address] FEon 10-15-2023 Iron [Mass/Vol] 141 ug/dL Normal 50-170 [facility] ([place]) Comment on above: Performed By: #### G FR, LIPID, HFP, A1C, IBC, TSH, CBC, ANEU, FT4, FERR, ADIFF, CMP, FE, VIDH, FT3 #### [address] [address] #### FOL, B12 #### [address] [address] Heidi 10-15-2023 Ferritin [Mass/Vol] 60.0 ng/mL Normal 8.0-252.0 [facility] ([place]) Comment on above: Performed By: #### G FR, LIPID, HFP, A1C, IBC, TSH, CBC, ANEU, FT4, FERR, ADIFF, CMP, FE, VIDH, FT3 #### [address] [address] #### FOL, B12 #### [address] [address] FT3on 10-15-2023 Free T3 [Mass/Vol] 3.26 pg/mL Normal 2.30-4.00 [facility] ([place]) Comment on above: Performed By: #### G FR, LIPID, HFP, A1C, IBC, TSH, CBC, ANEU, FT4, FERR, ADIFF, CMP, FE, VIDH, FT3 #### [address] [address] #### FOL, B12 #### [address] [address] FT4on 10-15-2023 Free T4 [Mass/Vol] 1.15 ng/dL Normal 0.76-1.46 [facility] ([place]) Comment on above: Performed By: #### G FR, LIPID, HFP, A1C, IBC, TSH, CBC, ANEU, FT4, FERR, ADIFF, CMP, FE, VIDH, FT3 #### [address] [address] #### FOL, B12 #### [address] [address] HFPon 10-15-2023 Bili Indirect 0.4 mg/dL Normal [facility] ([place]) Comment on above: Performed By: #### G FR, LIPID, HFP, A1C, IBC, TSH, CBC, ANEU, FT4, FERR, ADIFF, CMP, FE, VIDH, FT3 #### [address] [address] #### FOL, B12 #### [address] [address] Albumin Level 4.0 G/dL Normal 3.5-5.0 [facility] ([place]) Comment on above: Performed By: #### G FR, LIPID, HFP, A1C, IBC, TSH, CBC, ANEU, FT4, FERR, ADIFF, CMP, FE, VIDH, FT3 #### [address] [address] #### FOL, B12 #### [address] [address] Albumin/Globulin [Mass ratio] 1.1 {ratio} Normal 1.1-2.5 [facility] ([place]) Comment on above: Performed By: #### G FR, LIPID, HFP, A1C, IBC, TSH, CBC, ANEU, FT4, FERR, ADIFF, CMP, FE, VIDH, FT3 #### [address] [address] #### FOL, B12 #### [address] [address] ALP [Catalytic activity/Vol] 91 U/L Normal 40-135 [facility] ([place]) Comment on above: Performed By: #### G FR, LIPID, HFP, A1C, IBC, TSH, CBC, ANEU, FT4, FERR, ADIFF, CMP, FE, VIDH, FT3 #### [address] [address] #### FOL, B12 #### [address] [address] ALT [Catalytic activity/Vol] 25 U/L Normal 14-59 [facility] ([place]) Comment on above: Performed By: #### G FR, LIPID, HFP, A1C, IBC, TSH, CBC, ANEU, FT4, FERR, ADIFF, CMP, FE, VIDH, FT3 #### [address] [address] #### FOL, B12 #### [address] [address] AST [Catalytic activity/Vol] 15 U/L Normal 10-40 [facility] ([place]) Comment on above: Performed By: #### G FR, LIPID, HFP, A1C, IBC, TSH, CBC, ANEU, FT4, FERR, ADIFF, CMP, FE, VIDH, FT3 #### [address] [address] #### FOL, B12 #### [place] [id number] Bili Direct 0.2 mg/dL Normal 0.0-0.2 [facility] ([place]) Comment on above: Result Comment: Use of this assay is not recommended for patients undergoing treatment with eltrombopag due to the potential for falsely elevated results. Performed By: #### G FR, LIPID, HFP, A1C, IBC, TSH, CBC, ANEU, FT4, FERR, ADIFF, CMP, FE, VIDH, FT3 #### [address] [address] #### FOL, B12 #### [place] [address] Bili Total 0.6 mg/dL Normal 0.2-1.0 [facility] ([place]) Comment on above: Result Comment: Use of this assay is not recommended for patients undergoing treatment with eltrombopag due to the potential for falsely elevated results. Performed By: #### G FR, LIPID, HFP, A1C, IBC, TSH, CBC, ANEU, FT4, FERR, ADIFF, CMP, FE, VIDH, FT3 #### [address] [address] #### FOL, B12 #### [address] [address] Globulin 3.7 G/dL Normal [facility] ([place]) Comment on above: Performed By: #### G FR, LIPID, HFP, A1C, IBC, TSH, CBC, ANEU, FT4, FERR, ADIFF, CMP, FE, VIDH, FT3 #### [address] [address] #### FOL, B12 #### [place] [address] Total Protein 7.7 G/dL Normal 6.4-8.2 [facility] ([place]) Comment on above: Performed By: #### G FR, LIPID, HFP, A1C, IBC, TSH, CBC, ANEU, FT4, FERR, ADIFF, CMP, FE, VIDH, FT3 #### [address] [address] #### FOL, B12 #### [place] [address] IBCon 10-15-2023 TIBC 330 mcg/dL Normal 250-450 [facility] ([place]) Comment on above: Performed By: #### G FR, LIPID, HFP, A1C, IBC, TSH, CBC, ANEU, FT4, FERR, ADIFF, CMP, FE, VIDH, FT3 #### [address] [address] #### FOL, B12 #### [place] [id number] LABORATORYOrdered By: SYSTEM SYSTEM on 10-15-2023 25-hydroxyvitamin [...] 10-15-2023 Cholesterol [Mass/Vol] 172 mg/dL Normal 0-200 [facility] ([place]) Comment on above: Result Comment: Chol esterol Reference Interval: Less than 200 Desirable 200-239 Borderline high risk 240 and above High risk Performed By: #### G FR, LIPID, HFP, A1C, IBC, TSH, CBC, ANEU, FT4, FERR, ADIFF, CMP, FE, VIDH, FT3 #### [address] [address] #### FOL, B12 #### [address] [address] Cholesterol in HDL [Mass/Vol] 66 mg/dL High 40-60 [facility] ([place]) Comment on above: Performed By: #### G FR, LIPID, HFP, A1C, IBC, TSH, CBC, ANEU, FT4, FERR, ADIFF, CMP, FE, VIDH, FT3 #### [address] [address] #### FOL, B12 #### [address] [address] Cholesterol in LDL [Mass/Vol] 80 mg/dL Normal 0-130 [facility] ([place]) Comment on above: Performed By: #### G FR, LIPID, HFP, A1C, IBC, TSH, CBC, ANEU, FT4, FERR, ADIFF, CMP, FE, VIDH, FT3 #### [address] [address] #### FOL, B12 #### [address] [address] Triglyceride [Mass/Vol] 132 mg/dL Normal 0-150 [facility] ([place]) Comment on above: Result Comment: Trig lyceride Reference Interval: Less than 150 Normal 150-199 Borderline high risk 200-499 High risk 500 or higher Very high risk Performed By: #### G FR, LIPID, HFP, A1C, IBC, TSH, CBC, ANEU, FT4, FERR, ADIFF, CMP, FE, VIDH, FT3 #### [address] [address] #### FOL, B12 #### [address] [address] Laboratory - Chemistry and C hemistry - [...] 10-15-2023 TSH Qn 1.13 m[IU]/L Normal 0.36-3.74 [facility] ([place]) Comment on above: Performed By: #### G FR, LIPID, HFP, A1C, IBC, TSH, CBC, ANEU, FT4, FERR, ADIFF, CMP, FE, VIDH, FT3 #### [address] [address] #### FOL, B12 #### [place] [address] UDRUGon 10-15-2023 Amphetamine (u) Negative Normal Negative [facility] ([place]) Comment on above: Performed By: #### G FR, LIPID, HFP, A1C, IBC, TSH, CBC, ANEU, FT4, FERR, ADIFF, CMP, FE, VIDH, FT3 #### [address] [address] #### FOL, B12 #### [place] [address] Barbiturate (u) Negative Normal Negative [facility] ([place]) Comment on above: Performed By: #### G FR, LIPID, HFP, A1C, IBC, TSH, CBC, ANEU, FT4, FERR, ADIFF, CMP, FE, VIDH, FT3 #### [address] [address] #### FOL, B12 #### [place] [address] Benzodiazepine (u) Negative Normal Negative [facility] ([place]) Comment on above: Performed By: #### G FR, LIPID, HFP, A1C, IBC, TSH, CBC, ANEU, FT4, FERR, ADIFF, CMP, FE, VIDH, FT3 #### [address] [address] #### FOL, B12 #### [place] [address] Cannabinoid (u) Negative Normal Negative [facility] ([place]) Comment on above: Performed By: #### G FR, LIPID, HFP, A1C, IBC, TSH, CBC, ANEU, FT4, FERR, ADIFF, CMP, FE, VIDH, FT3 #### [address] [address] #### FOL, B12 #### [place] [address] Cocaine Ql (U) Negative Normal Negative [facility] ([place]) Comment on above: Performed By: #### G FR, LIPID, HFP, A1C, IBC, TSH, CBC, ANEU, FT4, FERR, ADIFF, CMP, FE, VIDH, FT3 #### [address] [address] #### FOL, B12 #### [place] [address] Methadone Ql (U) Negative Normal Negative [facility] ([place]) Comment on above: Performed By: #### G FR, LIPID, HFP, A1C, IBC, TSH, CBC, ANEU, FT4, FERR, ADIFF, CMP, FE, VIDH, FT3 #### [address] [address] #### FOL, B12 #### [place] [address] Opiate (u) Negative Normal Negative [facility] ([place]) Comment on above: Performed By: #### G FR, LIPID, HFP, A1C, IBC, TSH, CBC, ANEU, FT4, FERR, ADIFF, CMP, FE, VIDH, FT3 #### [address] [address] #### FOL, B12 #### [place] [address] PCP (u) Negative Normal Negative [facility] ([place]) Comment on above: Performed By: #### G FR, LIPID, HFP, A1C, IBC, TSH, CBC, ANEU, FT4, FERR, ADIFF, CMP, FE, VIDH, FT3 #### [address] [address] #### FOL, B12 #### [place] [address] Urine Drugs screened: See Below Normal [facility] ([place]) Comment on above: Result Comment: This drug [...] ADIFF, CMP, FE, VIDH, FT3 #### [address] [address] #### FOL, B12 #### [place] [address] VIDHon 10-15-2023 Vit. D 25-Hydroxy 12.2 ng/mL Normal [facility] ([place]) Comment on above: Result Comment: Inte rpretive Values Based on Total 25(OH) Vitamin D: Deficient <20 ng/mL Insufficient 20 - <30 ng/mL Sufficient 30-100 ng/mL Performed By: #### G FR, LIPID, HFP, A1C, IBC, TSH, CBC, ANEU, FT4, FERR, ADIFF, CMP, FE, VIDH, FT3 #### [address] [address] #### FOL, B12 #### [address] [address] .Auto Diffon 03-31-2023 Basophil, Absolute 0.0 10 3/mcL Normal 0.0-0.2 [facility] ([place]) Comment on above: Performed By: #### G FR, LIPID, HFP, A1C, IBC, TSH, CBC, ANEU, FT4, FERR, ADIFF, CMP, FE, VIDH, FT3 #### [address] [address] #### FOL, B12 #### [address] [address] Basophils/100 WBC (Bld) 0.1 % Normal 0.0-2.5 [facility] ([place]) Comment on above: Performed By: #### G FR, LIPID, HFP, A1C, IBC, TSH, CBC, ANEU, FT4, FERR, ADIFF, CMP, FE, VIDH, FT3 #### [address] [address] #### FOL, B12 #### [address] [address] Eosinophil, Absolute 0.0 10 3/mcL Normal 0.0-0.4 [facility] ([place]) Comment on above: Performed By: #### G FR, LIPID, HFP, A1C, IBC, TSH, CBC, ANEU, FT4, FERR, ADIFF, CMP, FE, VIDH, FT3 #### [address] [address] #### FOL, B12 #### [address] [address] Eosinophils/100 WBC (Bld) 0.0 % Normal 0.0-7.0 [facility] ([place]) Comment on above: Performed By: #### G FR, LIPID, HFP, A1C, IBC, TSH, CBC, ANEU, FT4, FERR, ADIFF, CMP, FE, VIDH, FT3 #### [address] [address] #### FOL, B12 #### [address] [address] Lymphocyte, Absolute 1.2 10 3/mcL Normal 0.8-3.9 [facility] ([place]) Comment on above: Performed By: #### G FR, LIPID, HFP, A1C, IBC, TSH, CBC, ANEU, FT4, FERR, ADIFF, CMP, FE, VIDH, FT3 #### [address] [address] #### FOL, B12 #### [address] [address] Lymphocytes/100 WBC (Bld) 11.4 % Normal 10.0-50.0 [facility] ([place]) Comment on above: Performed By: #### G FR, LIPID, HFP, A1C, IBC, TSH, CBC, ANEU, FT4, FERR, ADIFF, CMP, FE, VIDH, FT3 #### [address] [address] #### FOL, B12 #### [address] [address] Monocyte, Absolute 0.8 10 3/mcL Normal 0.2-1.0 [facility] ([place]) Comment on above: Performed By: #### G FR, LIPID, HFP, A1C, IBC, TSH, CBC, ANEU, FT4, FERR, ADIFF, CMP, FE, VIDH, FT3 #### [address] [address] #### FOL, B12 #### [address] [address] Monocytes/100 WBC (Bld) 7.6 % Normal 1.7-13.0 [facility] ([place]) Comment on above: Performed By: #### G FR, LIPID, HFP, A1C, IBC, TSH, CBC, ANEU, FT4, FERR, ADIFF, CMP, FE, VIDH, FT3 #### [address] [address] #### FOL, B12 #### [address] [address] Neutrophils/100 WBC (Bld) 80.9 % High 37.0-80.0 [facility] ([place]) Comment on above: Performed By: #### G FR, LIPID, HFP, A1C, IBC, TSH, CBC, ANEU, FT4, FERR, ADIFF, CMP, FE, VIDH, FT3 #### [address] [address] #### FOL, B12 #### [address] [address] .NEUABSon 03-31-2023 Neutrophil, Absolute 8.8 10 3/mcL High 2.9-6.2 [facility] ([place]) Comment on above: Performed By: #### G FR, LIPID, HFP, A1C, IBC, TSH, CBC, ANEU, FT4, FERR, ADIFF, CMP, FE, VIDH, FT3 #### [address] [address] #### FOL, B12 #### [address] [address] CBCon 03-31-2023 Erythrocyte distribution width (RBC) [Ratio] 13.9 % Normal 11.5-14.5 [facility] ([place]) Comment on above: Performed By: #### G FR, LIPID, HFP, A1C, IBC, TSH, CBC, ANEU, FT4, FERR, ADIFF, CMP, FE, VIDH, FT3 #### [address] [address] #### FOL, B12 #### [address] [address] Hematocrit (Bld) [Volume fraction] 33.1 % Low 37.0-47.0 [facility] ([place]) Comment on above: Performed By: #### G FR, LIPID, HFP, A1C, IBC, TSH, CBC, ANEU, FT4, FERR, ADIFF, CMP, FE, VIDH, FT3 #### [address] [address] #### FOL, B12 #### [address] [address] Hgb 11.5 G/dL Low 12.0-16.0 [facility] ([place]) Comment on above: Performed By: #### G FR, LIPID, HFP, A1C, IBC, TSH, CBC, ANEU, FT4, FERR, ADIFF, CMP, FE, VIDH, FT3 #### [address] [address] #### FOL, B12 #### [address] [address] MCH (RBC) [Entitic mass] 32.3 pg High 27.0-31.2 [facility] ([place]) Comment on above: Performed By: #### G FR, LIPID, HFP, A1C, IBC, TSH, CBC, ANEU, FT4, FERR, ADIFF, CMP, FE, VIDH, FT3 #### [address] [address] #### FOL, B12 #### [address] [address] MCHC 34.7 G/dL Normal 33.0-37.0 [facility] ([place]) Comment on above: Performed By: #### G FR, LIPID, HFP, A1C, IBC, TSH, CBC, ANEU, FT4, FERR, ADIFF, CMP, FE, VIDH, FT3 #### [address] [address] #### FOL, B12 #### [address] [address] MCV (RBC) [Entitic vol] 93.0 fL Normal 80.0-94.0 [facility] ([place]) Comment on above: Performed By: #### G FR, LIPID, HFP, A1C, IBC, TSH, CBC, ANEU, FT4, FERR, ADIFF, CMP, FE, VIDH, FT3 #### [address] [address] #### FOL, B12 #### [address] [address] Platelet 155 10 3/mcL Normal 130-400 [facility] ([place]) Comment on above: Performed By: #### G FR, LIPID, HFP, A1C, IBC, TSH, CBC, ANEU, FT4, FERR, ADIFF, CMP, FE, VIDH, FT3 #### [address] [address] #### FOL, B12 #### [address] [address] Platelet mean volume (Bld) [Entitic vol] 9.3 fL Normal 7.4-10.4 [facility] ([place]) Comment on above: Performed By: #### G FR, LIPID, HFP, A1C, IBC, TSH, CBC, ANEU, FT4, FERR, ADIFF, CMP, FE, VIDH, FT3 #### [address] [address] #### FOL, B12 #### [address] [address] RBC 3.55 10 6/mcL Low 4.20-5.40 [facility] ([place]) Comment on above: Performed By: #### G FR, LIPID, HFP, A1C, IBC, TSH, CBC, ANEU, FT4, FERR, ADIFF, CMP, FE, VIDH, FT3 #### [address] [address] #### FOL, B12 #### [address] [address] WBC 10.9 10 3/mcL High 4.6-10.8 [facility] ([place]) Comment on above: Performed By: #### G FR, LIPID, HFP, A1C, IBC, TSH, CBC, ANEU, FT4, FERR, ADIFF, CMP, FE, VIDH, FT3 #### [address] [address] #### FOL, B12 #### [place] [address] LABORATORYOrdered By: Billie Ibarra on 03-31-2023 Basophil, [...] Ab RPR Ql (S) Non-Reactive Normal Non-Reactive [facility] ([place]) Comment on above: Result Comment: The RPR [...] ADIFF, CMP, FE, VIDH, FT3 #### [address] [address] #### FOL, B12 #### [address] [address] .Auto Diffon 03-30-2023 Basophil, Absolute 0.0 10 3/mcL Normal 0.0-0.2 [facility] ([place]) Comment on above: Performed By: #### G FR, LIPID, HFP, A1C, IBC, TSH, CBC, ANEU, FT4, FERR, ADIFF, CMP, FE, VIDH, FT3 #### [address] [address] #### FOL, B12 #### [address] [address] Basophils/100 WBC (Bld) 0.1 % Normal 0.0-2.5 [facility] ([place]) Comment on above: Performed By: #### G FR, LIPID, HFP, A1C, IBC, TSH, CBC, ANEU, FT4, FERR, ADIFF, CMP, FE, VIDH, FT3 #### [address] [address] #### FOL, B12 #### [address] [address] Eosinophil, Absolute 0.0 10 3/mcL Normal 0.0-0.4 [facility] ([place]) Comment on above: Performed By: #### G FR, LIPID, HFP, A1C, IBC, TSH, CBC, ANEU, FT4, FERR, ADIFF, CMP, FE, VIDH, FT3 #### [address] [address] #### FOL, B12 #### [address] [address] Eosinophils/100 WBC (Bld) 0.2 % Normal 0.0-7.0 [facility] ([place]) Comment on above: Performed By: #### G FR, LIPID, HFP, A1C, IBC, TSH, CBC, ANEU, FT4, FERR, ADIFF, CMP, FE, VIDH, FT3 #### [address] [address] #### FOL, B12 #### [address] [address] Lymphocyte, Absolute 1.8 10 3/mcL Normal 0.8-3.9 [facility] ([place]) Comment on above: Performed By: #### G FR, LIPID, HFP, A1C, IBC, TSH, CBC, ANEU, FT4, FERR, ADIFF, CMP, FE, VIDH, FT3 #### [address] [address] #### FOL, B12 #### [address] [address] Lymphocytes/100 WBC (Bld) 16.8 % Normal 10.0-50.0 [facility] ([place]) Comment on above: Performed By: #### G FR, LIPID, HFP, A1C, IBC, TSH, CBC, ANEU, FT4, FERR, ADIFF, CMP, FE, VIDH, FT3 #### [address] [address] #### FOL, B12 #### [address] [address] Monocyte, Absolute 0.8 10 3/mcL Normal 0.2-1.0 [facility] ([place]) Comment on above: Performed By: #### G FR, LIPID, HFP, A1C, IBC, TSH, CBC, ANEU, FT4, FERR, ADIFF, CMP, FE, VIDH, FT3 #### [address] [address] #### FOL, B12 #### [address] [address] Monocytes/100 WBC (Bld) 7.2 % Normal 1.7-13.0 [facility] ([place]) Comment on above: Performed By: #### G FR, LIPID, HFP, A1C, IBC, TSH, CBC, ANEU, FT4, FERR, ADIFF, CMP, FE, VIDH, FT3 #### [address] [address] #### FOL, B12 #### [address] [address] Neutrophils/100 WBC (Bld) 75.7 % Normal 37.0-80.0 [facility] ([place]) Comment on above: Performed By: #### G FR, LIPID, HFP, A1C, IBC, TSH, CBC, ANEU, FT4, FERR, ADIFF, CMP, FE, VIDH, FT3 #### [address] [address] #### FOL, B12 #### [address] [address] .NEUABSon 03-30-2023 Neutrophil, Absolute 8.2 10 3/mcL High 2.9-6.2 [facility] ([place]) Comment on above: Performed By: #### G FR, LIPID, HFP, A1C, IBC, TSH, CBC, ANEU, FT4, FERR, ADIFF, CMP, FE, VIDH, FT3 #### [address] [address] #### FOL, B12 #### [address] [address] CBCon 03-30-2023 Erythrocyte distribution width (RBC) [Ratio] 13.8 % Normal 11.5-14.5 [facility] ([place]) Comment on above: Performed By: #### G FR, LIPID, HFP, A1C, IBC, TSH, CBC, ANEU, FT4, FERR, ADIFF, CMP, FE, VIDH, FT3 #### [address] [address] #### FOL, B12 #### [address] [address] Hematocrit (Bld) [Volume fraction] 37.2 % Normal 37.0-47.0 [facility] ([place]) Comment on above: Performed By: #### G FR, LIPID, HFP, A1C, IBC, TSH, CBC, ANEU, FT4, FERR, ADIFF, CMP, FE, VIDH, FT3 #### [address] [address] #### FOL, B12 #### [address] [address] Hgb 12.9 G/dL Normal 12.0-16.0 [facility] ([place]) Comment on above: Performed By: #### G FR, LIPID, HFP, A1C, IBC, TSH, CBC, ANEU, FT4, FERR, ADIFF, CMP, FE, VIDH, FT3 #### [address] [address] #### FOL, B12 #### [address] [address] MCH (RBC) [Entitic mass] 32.2 pg High 27.0-31.2 [facility] ([place]) Comment on above: Performed By: #### G FR, LIPID, HFP, A1C, IBC, TSH, CBC, ANEU, FT4, FERR, ADIFF, CMP, FE, VIDH, FT3 #### [address] [address] #### FOL, B12 #### [address] [address] MCHC 34.7 G/dL Normal 33.0-37.0 [facility] ([place]) Comment on above: Performed By: #### G FR, LIPID, HFP, A1C, IBC, TSH, CBC, ANEU, FT4, FERR, ADIFF, CMP, FE, VIDH, FT3 #### [address] [address] #### FOL, B12 #### [place] [address] MCV (RBC) [Entitic vol] 92.8 fL Normal 80.0-94.0 [facility] ([place]) Comment on above: Performed By: #### G FR, LIPID, HFP, A1C, IBC, TSH, CBC, ANEU, FT4, FERR, ADIFF, CMP, FE, VIDH, FT3 #### [place] [address] #### FOL, B12 #### [place] [address] Platelet 169 10 3/mcL Normal 130-400 [facility] ([place]) Comment on above: Performed By: #### G FR, LIPID, HFP, A1C, IBC, TSH, CBC, ANEU, FT4, FERR, ADIFF, CMP, FE, VIDH, FT3 #### [place] [address] #### FOL, B12 #### [address] [address] Platelet mean volume (Bld) [Entitic vol] 9.7 fL Normal 7.4-10.4 [facility] ([place]) Comment on above: Performed By: #### G FR, LIPID, HFP, A1C, IBC, TSH, CBC, ANEU, FT4, FERR, ADIFF, CMP, FE, VIDH, FT3 #### [place] [address] #### FOL, B12 #### [address] [address] RBC 4.01 10 6/mcL Low 4.20-5.40 [facility] ([place]) Comment on above: Performed By: #### G FR, LIPID, HFP, A1C, IBC, TSH, CBC, ANEU, FT4, FERR, ADIFF, CMP, FE, VIDH, FT3 #### [address] [address] #### FOL, B12 #### [place] [address] WBC 10.8 10 3/mcL Normal 4.6-10.8 [facility] ([place]) Comment on above: Performed By: #### G FR, LIPID, HFP, A1C, IBC, TSH, CBC, ANEU, FT4, FERR, ADIFF, CMP, FE, VIDH, FT3 #### [address] [address] #### FOL, B12 #### [place] [address] Gel ABOon 03-30-2023 ABO/Rh Interp Positive Invalid Interpretation Code [facility] ([place]) Comment on above: Performed By: #### G FR, LIPID, HFP, A1C, IBC, TSH, CBC, ANEU, FT4, FERR, ADIFF, CMP, FE, VIDH, FT3 #### [address] [address] #### FOL, B12 #### [place] [address] Gel ABSon 03-30-2023 Antibody Screen Gel Negative Normal [facility] ([place]) Comment on above: Performed By: #### G FR, LIPID, HFP, A1C, IBC, TSH, CBC, ANEU, FT4, FERR, ADIFF, CMP, FE, VIDH, FT3 #### [address] [address] #### FOL, B12 #### [place] [address] LABORATORYOrdered By: Lilia Espinoza on 03-30-2023 ABO/Rh [...] Group B Strep (PCR) Negative Normal Negative [facility] ([place]) Comment on above: Performed By: #### G BSPCR #### [address] [address] Group B Strep PCR Int Normal [facility] ([place]) Comment on above: Result Comment: Grou p [...] Performed By: #### G BSPCR #### [address] [address] RPRon 03-10-2023 Reagin Ab RPR Ql (S) Non-Reactive Normal Non-Reactive [facility] ([place]) Comment on above: Result Comment: The RPR [...] ADIFF, CMP, FE, VIDH, FT3 #### [address] [address] #### FOL, B12 #### [address] [address] .Auto Diffon 03-09-2023 Basophil, Absolute 0.0 10 3/mcL Normal 0.0-0.2 [facility] ([place]) Comment on above: Performed By: #### G FR, LIPID, HFP, A1C, IBC, TSH, CBC, ANEU, FT4, FERR, ADIFF, CMP, FE, VIDH, FT3 #### [address] [address] #### FOL, B12 #### [address] [address] Basophils/100 WBC (Bld) 0.2 % Normal 0.0-2.5 [facility] ([place]) Comment on above: Performed By: #### G FR, LIPID, HFP, A1C, IBC, TSH, CBC, ANEU, FT4, FERR, ADIFF, CMP, FE, VIDH, FT3 #### [address] [address] #### FOL, B12 #### [address] [address] Eosinophil, Absolute 0.0 10 3/mcL Normal 0.0-0.4 [facility] ([place]) Comment on above: Performed By: #### G FR, LIPID, HFP, A1C, IBC, TSH, CBC, ANEU, FT4, FERR, ADIFF, CMP, FE, VIDH, FT3 #### [address] [address] #### FOL, B12 #### [address] [address] Eosinophils/100 WBC (Bld) 0.3 % Normal 0.0-7.0 [facility] ([place]) Comment on above: Performed By: #### G FR, LIPID, HFP, A1C, IBC, TSH, CBC, ANEU, FT4, FERR, ADIFF, CMP, FE, VIDH, FT3 #### [address] [address] #### FOL, B12 #### [address] [address] Lymphocyte, Absolute 1.5 10 3/mcL Normal 0.8-3.9 [facility] ([place]) Comment on above: Performed By: #### G FR, LIPID, HFP, A1C, IBC, TSH, CBC, ANEU, FT4, FERR, ADIFF, CMP, FE, VIDH, FT3 #### [address] [address] #### FOL, B12 #### [address] [address] Lymphocytes/100 WBC (Bld) 15.8 % Normal 10.0-50.0 [facility] ([place]) Comment on above: Performed By: #### G FR, LIPID, HFP, A1C, IBC, TSH, CBC, ANEU, FT4, FERR, ADIFF, CMP, FE, VIDH, FT3 #### [address] [address] #### FOL, B12 #### [address] [address] Monocyte, Absolute 0.6 10 3/mcL Normal 0.2-1.0 [facility] ([place]) Comment on above: Performed By: #### G FR, LIPID, HFP, A1C, IBC, TSH, CBC, ANEU, FT4, FERR, ADIFF, CMP, FE, VIDH, FT3 #### [address] [address] #### FOL, B12 #### [address] [address] Monocytes/100 WBC (Bld) 6.6 % Normal 1.7-13.0 [facility] ([place]) Comment on above: Performed By: #### G FR, LIPID, HFP, A1C, IBC, TSH, CBC, ANEU, FT4, FERR, ADIFF, CMP, FE, VIDH, FT3 #### [address] [address] #### FOL, B12 #### [address] [address] Neutrophils/100 WBC (Bld) 77.1 % Normal 37.0-80.0 [facility] ([place]) Comment on above: Performed By: #### G FR, LIPID, HFP, A1C, IBC, TSH, CBC, ANEU, FT4, FERR, ADIFF, CMP, FE, VIDH, FT3 #### [address] [address] #### FOL, B12 #### [address] [address] .NEUABSon 03-09-2023 Neutrophil, Absolute 7.4 10 3/mcL High 2.9-6.2 [facility] ([place]) Comment on above: Performed By: #### G FR, LIPID, HFP, A1C, IBC, TSH, CBC, ANEU, FT4, FERR, ADIFF, CMP, FE, VIDH, FT3 #### [address] [address] #### FOL, B12 #### [address] [address] CBCon 03-09-2023 Erythrocyte distribution width (RBC) [Ratio] 13.9 % Normal 11.5-14.5 [facility] ([place]) Comment on above: Performed By: #### G FR, LIPID, HFP, A1C, IBC, TSH, CBC, ANEU, FT4, FERR, ADIFF, CMP, FE, VIDH, FT3 #### [address] [address] #### FOL, B12 #### [address] [address] Hematocrit (Bld) [Volume fraction] 36.3 % Low 37.0-47.0 [facility] ([place]) Comment on above: Performed By: #### G FR, LIPID, HFP, A1C, IBC, TSH, CBC, ANEU, FT4, FERR, ADIFF, CMP, FE, VIDH, FT3 #### [address] [address] #### FOL, B12 #### [address] [address] Hgb 12.6 G/dL Normal 12.0-16.0 [facility] ([place]) Comment on above: Performed By: #### G FR, LIPID, HFP, A1C, IBC, TSH, CBC, ANEU, FT4, FERR, ADIFF, CMP, FE, VIDH, FT3 #### [address] [address] #### FOL, B12 #### [address] [address] MCH (RBC) [Entitic mass] 32.4 pg High 27.0-31.2 [facility] ([place]) Comment on above: Performed By: #### G FR, LIPID, HFP, A1C, IBC, TSH, CBC, ANEU, FT4, FERR, ADIFF, CMP, FE, VIDH, FT3 #### [place] [address] #### FOL, B12 #### [place] [address] MCHC 34.7 G/dL Normal 33.0-37.0 [facility] ([place]) Comment on above: Performed By: #### G FR, LIPID, HFP, A1C, IBC, TSH, CBC, ANEU, FT4, FERR, ADIFF, CMP, FE, VIDH, FT3 #### [place] [address] #### FOL, B12 #### [address] [address] MCV (RBC) [Entitic vol] 93.3 fL Normal 80.0-94.0 [facility] ([place]) Comment on above: Performed By: #### G FR, LIPID, HFP, A1C, IBC, TSH, CBC, ANEU, FT4, FERR, ADIFF, CMP, FE, VIDH, FT3 #### [place] [address]97 #### FOL, B12 #### [address] [address] Platelet 171 10 3/mcL Normal 130-400 [facility] ([place]) Comment on above: Performed By: #### G FR, LIPID, HFP, A1C, IBC, TSH, CBC, ANEU, FT4, FERR, ADIFF, CMP, FE, VIDH, FT3 #### [place] [address] #### FOL, B12 #### [address] [address] Platelet mean volume (Bld) [Entitic vol] 8.5 fL Normal 7.4-10.4 [facility] ([place]) Comment on above: Performed By: #### G FR, LIPID, HFP, A1C, IBC, TSH, CBC, ANEU, FT4, FERR, ADIFF, CMP, FE, VIDH, FT3 #### [place] [address] #### FOL, B12 #### [address] [address] RBC 3.89 10 6/mcL Low 4.20-5.40 [facility] ([place]) Comment on above: Performed By: #### G FR, LIPID, HFP, A1C, IBC, TSH, CBC, ANEU, FT4, FERR, ADIFF, CMP, FE, VIDH, FT3 #### [place] [address] #### FOL, B12 #### [place] [address] WBC 9.7 10 3/mcL Normal 4.6-10.8 [facility] ([place]) Comment on above: Performed By: #### G FR, LIPID, HFP, A1C, IBC, TSH, CBC, ANEU, FT4, FERR, ADIFF, CMP, FE, VIDH, FT3 #### [place] [address] #### FOL, B12 #### [address] [address] LABORATORYOrdered By: Isabella Eng on 03-09-2023 Group [...] SS AMNIon 03-06-2023 Amnisure Negative Normal Negative [facility] ([place]) Comment on above: Performed By: #### G FR, LIPID, HFP, A1C, IBC, TSH, CBC, ANEU, FT4, FERR, ADIFF, CMP, FE, VIDH, FT3 #### [address] [address] #### FOL, B12 #### [address] [address] LABORATORYOrdered By: Lilia Espinoza on 03-06-2023 Rnurq-[id number] .placental Ql (Vag fld) Negative (03/06/23 5:57 [...] Text Normal [facility] Bacteria Ur Culton 3 Bacteria identified Cx Nom (U) CULTURE, URINE: <10,000 CFU/ml Normal Urogenital Den Normal [facility] Comment on above: Performed By: #### 6 30-4 #### [facility] CLIA [id number] [address] ED NOTEon 10-29-2022 ED NOTE HNO ID: [id number] Author: Martinez Crouch RN Service: ? Author Type: Registered Nurse Type: ED Notes Filed: 10/28/2022 10:37 PM Note Text: Bed: 26-ED Expected date: Expected time: Means of arrival: Comments: triage Normal [facility] ED PROV NOTEon 10-29-2022 ED PROV NOTE HNO ID: [id number] Author: Danitza Reis DO Service: Emergency Medicine [...] BABS Medina CHRISTINA M 10/29/22 0323 Normal [facility] ED PROV NOTE HNO ID: [id number] Author: Danitza Reis DO Service: Emergency Medicine [...] was dehydrated. She follows with OB at [facility] in [place]. complicated by hyperemesis gravidarum and bleeding in [...] sign, Rovsing (more content not included)... Normal [facility] EKGon 10-29-2022 Electrocardiogram Ventricular Rate : 129 BPM Atrial Rate : 129 BPM P-R Interval : 130 ms QRS Duration : 70 ms Q-T Interval : 300 ms QTC Calculation(Bazett) : 439 ms Calculated P Whiteside : 31 degrees Calculated R [place] : 66 degrees Calculated T [place] : -[address] & T WAVE ABNORMALITY, CONSIDER INFERIOR ISCHEMIA ST & T WAVE ABNORMALITY, CONSIDER ANTEROLATERAL ISCHEMIA ABNORMAL ECG WHEN COMPARED WITH ECG OF 31-MAY-2022 13:06, VENT. RATE HAS INCREASED BY 58 BPM T WAVE INVERSION NOW EVIDENT IN INFERIOR LEADS INVERTED T WAVES HAVE REPLACED NONSPECIFIC T WAVE ABNORMALITY IN ANTEROLATERAL LEADS Confirmed by DO REIS CHRISTINA ([id number]) on 10/29/2022 1:44:37 AM NAME : LUZ OLIVEIRA PID : [id number] : 2000 Gender : Female Race : [...] ANTEROLATERAL LEADS Confirmed by DO REIS CHRISTINA ([id number]) on 10/29/2022 1:44:37 AM Test Reason : Location : 4 : [facility] ED26 Overread By : DO REIS CHRISTINA Edited By : DO REIS CHRISTINA Referred By : , Acquired by : KASHIF JOHNSON Normal [facility] Urinalysis complete panel (U )on 10-29-2022 Bacteria LM.HPF (Urine sed) [#/Area] Few Abnormal None Seen [facility] Comment on above: Order Comment: Speci men Type: URINE SPECIMENOrdering Facility: [facility] Address: [address] [place] [address] Performed By: #### 2 4356-8 ####[facility] LABORATORYCLIA [id number] [place] [address] [place] Bilirubin Ql (U) Negative Normal Negative [facility] Comment on above: Order Comment: Speci men Type: URINE SPECIMENOrdering Facility: [facility] Address: [address] [place] [address] Performed By: #### 2 4356-8 ####[facility] LABORATORYCLIA [id number] [address] [place] Clarity (Unsp spec) Turbid Abnormal Clear [facility] Comment on above: Order Comment: Speci men Type: URINE SPECIMENOrdering Facility: [facility] Address: [address] [place] [address] Performed By: #### 2 4356-8 ####[facility] LABORATORYCLIA [id number] [address] [place] Color (U) Yellow Normal yellow [facility] Comment on above: Order Comment: Speci men Type: URINE SPECIMENOrdering Facility: [facility] Address: [address] [place] [address] Performed By: #### 2 4356-8 ####[facility] LABORATORYCLIA [id number] [address] [place] Epithelial cells LM.HPF (Urine sed) [#/Area] Few Normal [facility] Comment on above: Order Comment: Speci men Type: URINE SPECIMENOrdering Facility: [facility] Address: [address] [place] [address] Performed By: #### 2 4356-8 ####[facility] LABORATORYCLIA [id number] [address] [place] Glucose Test strip (U) [Mass/Vol] Negative Normal Trace, Negative [facility] Comment on above: Order Comment: Speci men Type: URINE SPECIMENOrdering Facility: [facility] Address: [address] [place] [address] Performed By: #### 2 4356-8 ####[facility] LABORATORYCLIA [id number] [address] STATES [facility] Hemoglobin Ql (U) 1+ Abnormal Negative, Trace [facility] Comment on above: Order Comment: Speci men Type: URINE SPECIMENOrdering Facility: [facility] Address: [address] [place] [address] Performed By: #### 2 4356-8 ####[facility] LABORATORYCLIA [id number] [address] Ketones Ql (U) 4+ Abnormal Negative, Trace [facility] Comment on above: Order Comment: Speci men Type: URINE SPECIMENOrdering Facility: [facility] Address: [address] [place] [address] Performed By: #### 2 4356-8 ####[facility] LABORATORYCLIA [id number] [address] [place] Leukocyte esterase Test strip Ql (U) 25 Misti/mL Normal Negative, 25 Misti/mL [facility] Comment on above: Order Comment: Speci men Type: URINE SPECIMENOrdering Facility: [facility] Address: [address] [place] [address] Performed By: #### 2 4356-8 ####[facility] LABORATORYCLIA [id number] [address] [place] Nitrite Ql (U) Negative Normal Negative [facility] Comment on above: Order Comment: Speci men Type: URINE SPECIMENOrdering Facility: [facility] Address: [address] [place] [address] Performed By: #### 2 4356-8 ####[facility] LABORATORYCLIA [id number] [address] [place] pH (U) 6.0 [pH] Normal 5.0-8.0 [facility] Comment on above: Order Comment: Speci men Type: URINE SPECIMENOrdering Facility: [facility] Address: [address] [place] [address] Performed By: #### 2 4356-8 ####[facility] LABORATORYCLIA [id number] [address] Protein (U) [Mass/Vol] 1+ Abnormal Trace, Negative [facility] Comment on above: Order Comment: Speci men Type: URINE SPECIMENOrdering Facility: [facility] Address: [address] [place] [address] Performed By: #### 2 4356-8 ####[facility] LABORATORYCLIA [id number] [address] RBC LM.HPF (Urine sed) [#/Area] 6-10 /HPF Abnormal 0-3 /HPF [facility] Comment on above: Order Comment: Speci men Type: URINE SPECIMENOrdering Facility: [facility] Address: [address] [place] [address] Performed By: #### 2 4356-8 ####[facility] LABORATORYCLIA [id number] [address] STATES [facility] Specific gravity (U) [Rel density] 1.029 Normal 1.005-1.030 [facility] Comment on above: Order Comment: Speci men Type: URINE SPECIMENOrdering Facility: [facility] Address: [address] [place] [address] Performed By: #### 2 4356-8 ####[facility] LABORATORYCLIA [id number] [address] Urobilinogen Ql (U) Normal Normal Negative [facility] Comment on above: Order Comment: Speci men Type: URINE SPECIMENOrdering Facility: [facility] Address: [address] [place] [address] Performed By: #### 2 4356-8 ####[facility] LABORATORYCLIA [id number] [address] [place] WBC LM.HPF (Urine sed) [#/Area] 0-5 /HPF Normal 0-5 /HPF [facility] Comment on above: Order Comment: Speci men Type: URINE SPECIMENOrdering Facility: [facility] Address: [address] [place] [address] Performed By: #### 2 4356-8 ####[facility] LABORATORYCLIA [id number] [place] [address] [place] Basic metabolic 2000 panelon 10-28-2022 Anion gap [Moles/Vol] 15 mmol/L Normal 9-18 [facility] Comment on above: Order Comment: Speci men Type: BLOOD SPECIMENOrdering Facility: [facility] Address: [address] [place] [address] Performed By: #### 2 4321-2, ####[facility] LABORATORYCLIA [id number] [place] [address] [place] Calcium [Mass/Vol] 10.1 mg/dL Normal 8.5-10.2 [facility] Comment on above: Order Comment: Speci men Type: BLOOD SPECIMENOrdering Facility: [facility] Address: [address] [place] [address] Performed By: #### 2 432-2, ####[facility] LABORATORYCLIA [id number] [place] [address] [place] Chloride [Moles/Vol] 102 mmol/L Normal 97-105 [facility] Comment on above: Order Comment: Speci men Type: BLOOD SPECIMENOrdering Facility: [facility] Address: [address] [place] [address] Performed By: #### 2 4321-2, ####[facility] LABORATORYCLIA [id number] [place] [address] [place] CO2 [Moles/Vol] 22 mmol/L Normal 22-30 [facility] Comment on above: Order Comment: Speci men Type: BLOOD SPECIMENOrdering Facility: [facility] Address: [address] [place] [address] Performed By: #### 2 4321-2, ####[facility] LABORATORYCLIA [id number] [place] [address] [place] [facility] Creatinine [Mass/Vol] 0.61 mg/dL Normal 0.58-0.96 [facility] Comment on above: Order Comment: Eloise lopez Type: BLOOD SPECIMENOrdering Facility: [facility] Address: [address] [place] [address] Performed By: #### 2 43210-12, ####[facility]'S CENTERIA [id number] [place] [address] [facility] ESTIMATED GLOMERULAR FILTRATION RATE 129 mL/min/1.73m??? Normal >=60 [facility] Comment on above: Order Comment: Eloise lopez Type: BLOOD SPECIMENOrdering Facility: [facility] Address: [address] [place] [address] Result Comment: Tierra mated Glomerular Filtration Rate [...] reflect actual GFR. Performed By: #### 2 ####[facility]'S CENTERIA [id number] [place] [address] [place] [facility] Glucose [Mass/Vol] 86 mg/dL Normal 74-99 [facility] Comment on above: Order Comment: Eloise lopez Type: BLOOD SPECIMENOrdering Facility: [facility] Address: [address] [place] [address] Result Comment: The [place] Diabetes Association (ADA) provides guidance for cutoff [...] Standards of Medical Care in Diabetes 2016, [place] [employer]. Diabetes Care. 2016.39(Suppl 1). Performed By: #### 2 4320-2, ####[facility] LABORATORYCLIA [id number] [place] [address] [place] Potassium [Moles/Vol] 3.2 mmol/L Low 3.7-5.1 [facility] Comment on above: Order Comment: Mar[place]os[place] jessica Type: BLOOD SPECIMENOrdering Facility: [facility] Address: [address] [place] [address] Performed By: #### 2 4320-11, ####[facility] LABORATORYCLIA [id number] [address] STATES OF [facility] Sodium [Moles/Vol] 139 mmol/L Normal 136-144 [facility] Comment on above: Order Comment: Eloise lopez Type: BLOOD SPECIMENOrdering Facility: [facility] Address: [address] [place] [address] Performed By: #### 2 4320-11, ####[facility] LABORATORYCLIA [id number] [address] STATES [facility] Urea nitrogen [Mass/Vol] 5 mg/dL Low 7-21 [facility] Comment on above: Order Comment: [place] men Type: BLOOD SPECIMENOrdering Facility: [facility] Address: [address] [address] Performed By: #### 2 4320-11, ####[facility] LABORATORYCLIA [id number] [address] [place] CBC W Auto Differential pane l (Bld)on 10-28-2022 Basophils (Bld) [#/Vol] 10*3/uL Normal <0.11 [facility] Comment on above: Order Comment: [place] men Type: BLOOD SPECIMENOrdering Facility: [facility] Address: [address] [place] [address] Performed By: #### 5 7021-8 ####[facility] LABORATORYCLIA [id number] [address] Basophils/100 WBC (Bld) 0.1 % Normal [facility] Comment on above: Order Comment: Speci men Type: BLOOD SPECIMENOrdering Facility: [facility] Address: [address] [place] [address] Performed By: #### 5 7021-8 ####[facility] LABORATORYCLIA [id number] [address] Differential cell count method Nom (Bld) Auto Normal [facility] Comment on above: Order Comment: Speci men Type: BLOOD SPECIMENOrdering Facility: [facility] Address: [address] [place] [address] Performed By: #### 5 7021-8 ####[facility] LABORATORYCLIA [id number] [address] [place] Eosinophils (Bld) [#/Vol] 10*3/uL Normal <0.46 [facility] Comment on above: Order Comment: Speci men Type: BLOOD SPECIMENOrdering Facility: [facility] Address: [address] [place] [address] Performed By: #### 5 7021-8 ####[facility] LABORATORYCLIA [id number] [address] Eosinophils/100 WBC (Bld) 0.1 % Normal [facility] Comment on above: Order Comment: Speci men Type: BLOOD SPECIMENOrdering Facility: [facility] Address: [address] [place] [address] Performed By: #### 5 7021-8 ####[facility] LABORATORYCLIA [id number] [address] Erythrocyte distribution width (RBC) [Ratio] 13.8 % Normal 11.5-15.0 [facility] Comment on above: Order Comment: Speci men Type: BLOOD SPECIMENOrdering Facility: [facility] Address: [address] [address] Performed By: #### 5 7021-8 ####[facility] LABORATORYCLIA [id number] [address] OF [facility] Hematocrit (Bld) [Volume fraction] 38.2 % Normal 36.0-46.0 [facility] Comment on above: Order Comment: Speci men Type: BLOOD SPECIMENOrdering Facility: [facility] Address: [address] [place] [address] Performed By: #### 5 7021-8 ####[facility] LABORATORYCLIA [id number] [address] [place] Hemoglobin (Bld) [Mass/Vol] 13.5 g/dL Normal 11.5-15.5 [facility] Comment on above: Order Comment: Speci men Type: BLOOD SPECIMENOrdering Facility: [facility] Address: [address] [place] [address] Performed By: #### 5 7021-8 ####[facility] LABORATORYCLIA [id number] [address] [place] Immature granulocytes (Bld) [#/Vol] 0.04 10*3/uL Normal <0.10 [facility] Comment on above: Order Comment: Speci men Type: BLOOD SPECIMENOrdering Facility: [facility] Address: [address] [place] [address] Performed By: #### 5 7021-8 ####[facility] LABORATORYCLIA [id number] [address] [place] Immature granulocytes/100 WBC (Bld) 0.5 % Normal [facility] Comment on above: Order Comment: Speci men Type: BLOOD SPECIMENOrdering Facility: [facility] Address: [address] [place] [address] Performed By: #### 5 7021-8 ####[facility] LABORATORYCLIA [id number] [address] [place] Lymphocytes (Bld) [#/Vol] 1.53 10*3/uL Normal 1.00-4.00 [facility] Comment on above: Order Comment: Speci men Type: BLOOD SPECIMENOrdering Facility: [facility] Address: [address] [place] [address] Performed By: #### 5 7021-8 ####[facility] LABORATORYCLIA [id number] [address] Lymphocytes/100 WBC (Bld) 18.8 % Normal [facility] Comment on above: Order Comment: Speci men Type: BLOOD SPECIMENOrdering Facility: [facility] Address: [address] [place] [address] Performed By: #### 5 7021-8 ####[facility] LABORATORYCLIA [id number] [address] STATES OF [facility] MCH (RBC) [Entitic mass] 31.6 pg Normal 26.0-34.0 [facility] Comment on above: Order Comment: Speci men Type: BLOOD SPECIMENOrdering Facility: [facility] Address: [address] [place] [address] Performed By: #### 5 7021-8 ####[facility] LABORATORYCLIA [id number] [address] STATES [facility] MCHC (RBC) [Mass/Vol] 35.3 g/dL Normal 30.5-36.0 [facility] Comment on above: Order Comment: Speci men Type: BLOOD SPECIMENOrdering Facility: [facility] Address: [address] [place] [address] Performed By: #### 5 7021-8 ####[facility] LABORATORYCLIA [id number] [address] [place] MCV (RBC) [Entitic vol] 89.5 fL Normal 80.0-100.0 [facility] Comment on above: Order Comment: Speci men Type: BLOOD SPECIMENOrdering Facility: [facility] Address: [address] [place] [address] Performed By: #### 5 7021-8 ####[facility] LABORATORYCLIA [id number] [address] [place] Monocytes (Bld) [#/Vol] 0.51 10*3/uL Normal <0.87 [facility] Comment on above: Order Comment: Speci men Type: BLOOD SPECIMENOrdering Facility: [facility] Address: [address] [address] Performed By: #### 5 7021-8 ####[facility] LABORATORYCLIA [id number] [address] Monocytes/100 WBC (Bld) 6.3 % Normal [facility] Comment on above: Order Comment: Speci men Type: BLOOD SPECIMENOrdering Facility: [facility] Address: [address] [place] [address] Performed By: #### 5 7021-8 ####[facility] LABORATORYCLIA [id number] [address] [place] Neutrophils (Bld) [#/Vol] 6.06 10*3/uL Normal 1.45-7.50 [facility] Comment on above: Order Comment: Speci men Type: BLOOD SPECIMENOrdering Facility: [facility] Address: [address] [place] [address] Performed By: #### 5 7021-8 ####[facility] LABORATORYCLIA [id number] [address] Neutrophils/100 WBC (Bld) 74.2 % Normal [facility] Comment on above: Order Comment: Speci men Type: BLOOD SPECIMENOrdering Facility: [facility] Address: [address] [place] [address] Performed By: #### 5 7021-8 ####[facility] LABORATORYCLIA [id number] [address] [place] Nucleated RBC (Bld) [#/Vol] 10*3/uL Normal <0.01 [facility] Comment on above: Order Comment: Speci men Type: BLOOD SPECIMENOrdering Facility: [facility] Address: [address] [place], [place] [address] Performed By: #### 5 7021-8 ####[facility] LABORATORYCLIA [id number] [address] [place] Nucleated RBC/100 WBC (Bld) [Ratio] 0.0 /100 WBC Normal [facility] Comment on above: Order Comment: Speci men Type: BLOOD SPECIMENOrdering Facility: [facility] Address: [address] [place] [address] Performed By: #### 5 7021-8 ####[facility] LABORATORYCLIA [id number] [address] [place] Platelet mean volume (Bld) [Entitic vol] 10.2 fL Normal 9.0-12.7 [facility] Comment on above: Order Comment: Speci men Type: BLOOD SPECIMENOrdering Facility: [facility] Address: [address] [place] [address] Performed By: #### 5 7021-8 ####[facility] LABORATORYCLIA [id number] [address] [place] Platelets (Bld) [#/Vol] 191 10*3/uL Normal 150-400 [facility] Comment on above: Order Comment: Speci men Type: BLOOD SPECIMENOrdering Facility: [facility] Address: [address] [place] [address] Performed By: #### 5 7021-8 ####[facility] LABORATORYCLIA [id number] [place] [address] [place] RBC (Bld) [#/Vol] 4.27 10*6/uL Normal 3.90-5.20 [facility] Comment on above: Order Comment: Speci men Type: BLOOD SPECIMENOrdering Facility: [facility] Address: [address] [place] [address] Performed By: #### 5 7021-8 ####[facility] LABORATORYCLIA [id number] [address] [place] WBC (Bld) [#/Vol] 8.16 10*3/uL Normal 3.70-11.00 [facility] Comment on above: Order Comment: Speci men Type: BLOOD SPECIMENOrdering Facility: [facility] Address: [address] [place] [address] Performed By: #### 5 7021-8 ####[facility]ORYCLIA [id number] [place] [address] [place] ED Triage Noteon 10-28-2022 ED Triage Note HNO ID: [id number] Author: Dax Stevenson APRN.CNP Service: Emergency Medicine [...] CBC CMP EKG Urinalysis SIGNATURE: Dax Stevenson APRN.TERMITE CONTROL SERVICER Normal [facility] Magnesium SerPl-mCncon 10-28 Magnesium [Mass/Vol] 1.8 mg/dL Normal 1.7-2.3 [facility] Comment on above: Order Comment: Speci men Type: BLOOD SPECIMENOrdering Facility: [facility] Address[facility] [place] [address] Performed By: #### 2 4321-2, 85256-5 ####[facility] LABORATORYCLIA [id number] [address] STATES [place] URINE OB DIP B/Oon 3 Glucose Ql (U) Negative Neg mg/dL [facility] Protein.monoclonal (U) [Mass/Vol] TRACE Abnormal Neg mg/dL [facility] CNCOon 08-21-2022 CNCO Letter Text Normal [facility] Bacteria Ur Culton 2 Bacteria identified Cx Nom (U) ORGANISM ID: 1 50,000-<100,000 CFU/ml Normal urogenital den Normal [facility] Comment on above: Performed By: #### 7 3752-8, 03002-1, 15676-7 #### [facility] CLIA [id number] [facility] [address] OF [place] C. trachomatis+N. gonorrhoea e DNA CHICHO+probe Ql (Unsp spec)on 08-19-2022 C. trachomatis DNA CHICHO+probe Ql (Unsp spec) Negative Normal Negative for Chlamydia trachomatis by amplificaton [facility] Comment on above: Order Comment: Speci men Type: SWAB Ordering Facility: [facility] Address: [address] [place] [address] Performed By: #### 3 6902-5 #### [facility] CLIA [id number] [address] [place] [address] [place] N. gonorrhoeae DNA CHICHO+probe Ql (Unsp spec) Negative Normal Negative for Neisseria gonorrhoeae by amplification [facility] Comment on above: Order Comment: Speci men Type: SWAB Ordering Facility: [facility] Address: [address] [address] Performed By: #### 3 6902-5 #### [facility] CLIA [id number] [address] [place] [address] [place] CBC panel Auto (Bld)on 08-19 Erythrocyte distribution width (RBC) [Ratio] 12.4 % Normal 11.5-15.0 [facility] Comment on above: Order Comment: Speci men Type: BLOOD SPECIMEN Ordering Facility: [facility] Address: [address] [place] [address] Performed By: #### 7 3752-8, 82928-5, 54709-7 #### [facility] CLIA [id number] [address] [place] [address] [place] Hematocrit (Bld) [Volume fraction] 40.5 % Normal 36.0-46.0 [facility] Comment on above: Order Comment: Speci men Type: BLOOD SPECIMEN Ordering Facility: [facility] Address: [address] Performed By: #### 7 3752-8, 81034-1, 60188-1 #### [facility] CLIA [id number] [address] [place] [address] [place] Hemoglobin (Bld) [Mass/Vol] 13.6 g/dL Normal 11.5-15.5 [facility] Comment on above: Order Comment: Speci men Type: BLOOD SPECIMEN Ordering Facility: [facility] Address: [address] Performed By: #### 7 3752-8, 13048-8, 48452-7 #### [facility] CLIA [id number] [address] [place] [address] [place] MCH (RBC) [Entitic mass] 30.8 pg Normal 26.0-34.0 [facility] Comment on above: Order Comment: Speci men Type: BLOOD SPECIMEN Ordering Facility: [facility] Address: [address] [place] [address] Performed By: #### 7 3752-8, 64746-1, 96623-9 #### [facility] CLIA [id number] [address] [place] [address] [place] MCHC (RBC) [Mass/Vol] 33.6 g/dL Normal 30.5-36.0 [facility] Comment on above: Order Comment: Speci men Type: BLOOD SPECIMEN Ordering Facility: [facility] Address: [address] Performed By: #### 7 3752-8, 59877-0, 34773-0 #### [facility] CLIA [id number] [address] [place] [address] [place] MCV (RBC) [Entitic vol] 91.8 fL Normal 80.0-100.0 [facility] Comment on above: Order Comment: Speci men Type: BLOOD SPECIMEN Ordering Facility: [facility] Address: [address] Performed By: #### 7 3752-8, 42196-3, 00342-1 #### [facility] CLIA [id number] [address] [place] [address] [place] Nucleated RBC (Bld) [#/Vol] 10*3/uL Normal <0.01 [facility] Comment on above: Order Comment: Speci men Type: BLOOD SPECIMEN Ordering Facility: [facility] Address: [address] Performed By: #### 7 3752-8, 63083-7, 47400-2 #### [facility] CLIA [id number] [address] [place] [address] [place] Platelet mean volume (Bld) [Entitic vol] 10.5 fL Normal 9.0-12.7 [facility] Comment on above: Order Comment: Speci men Type: BLOOD SPECIMEN Ordering Facility: [facility] Address: [address] Performed By: #### 7 3752-8, 43151-5, 97601-1 #### [facility] CLIA [id number] [address] [place] [address] [place] Platelets (Bld) [#/Vol] 247 10*3/uL Normal 150-400 [facility] Comment on above: Order Comment: Speci men Type: BLOOD SPECIMEN Ordering Facility: [facility] Address: [address] Performed By: #### 7 3752-8, 77783-5, 87478-0 #### [facility] CLIA [id number] [address] [place] [id number] [place] RBC (Bld) [#/Vol] 4.41 10*6/uL Normal 3.90-5.20 [facility] Comment on above: Order Comment: Speci men Type: BLOOD SPECIMEN Ordering Facility: [facility] Address: [place] [address] Performed By: #### 7 3752-8, 55216-0, 28610-6 #### [facility] CLIA [id number] [address] [place] [address] OF [facility] WBC (Bld) [#/Vol] 7.20 10*3/uL Normal 3.70-11.00 [facility] Comment on above: Order Comment: Speci men Type: BLOOD SPECIMEN Ordering Facility: [facility] Address: [place] [address] Performed By: #### 7 3752-8, 27368-1, 14579-8 #### [facility] CLIA [id number] [address] [place] [address] STATES OF [facility] Erythrocyte distribution width (RBC) [Ratio] 12.4 % 11.5 - 15.0 % [facility] Hematocrit (Bld) [Volume fraction] 40.5 % 36.0 - 46.0 % [facility] Hemoglobin (Bld) [Mass/Vol] 13.6 g/dL 11.5 - 15.5 g/dL [facility] MCH (RBC) [Entitic mass] 30.8 pg 26.0 - 34.0 pg [facility] MCHC (RBC) [Mass/Vol] 33.6 g/dL 30.5 - 36.0 g/dL [facility] MCV (RBC) [Entitic vol] 91.8 fL 80.0 - 100.0 fL [facility] Nucleated RBC (Bld) [#/Vol] <0.01 k/uL [facility] Platelet mean volume (Bld) [Entitic vol] 10.5 fL 9.0 - 12.7 fL [facility] Platelets (Bld) [#/Vol] 247 10*3/uL 150 - 400 k/uL [facility] RBC (Bld) [#/Vol] 4.41 10*6/uL 3.90 - 5.2 0 m/uL [facility] WBC (Bld) [#/Vol] 7.20 10*3/uL 3.70 - 11. 00 k/uL [facility] HBV surface Ab IA Ql (S)on 1 10-19-2021 HBV surface Ag Ql (S) Negative Normal Negative [facility] Comment on above: Order Comment: Speci men Type: BLOOD SPECIMEN Ordering Facility: [facility] Address: [address] [place] [address] Performed By: #### 7 3752-8, 50125-3, 24322-3 #### [facility] CLIA [id number] [address] [place] [address] [place] HCV Ab Ser Qlon 08-19-2022 HCV Ab Ql (S) Negative Normal Negative [facility] Comment on above: Order Comment: Speci men Type: BLOOD SPECIMEN Ordering Facility: [facility] Address: [address] [place] [address] Result Comment: The result suggests no evidence of active infection with Hepatitis C virus. Should recent infection be suspected, repeat testing may be considered 4-6 weeks after this draw. Performed By: #### 7 3752-8, 31515-0, 29633-8 #### [facility] CLIA [id number] [address] [place] [address] [place] [facility] OF [place] HIV 1+2 Ab IA Qlon 2 HIV 1 and 2 Ab IA.rapid Nom Normal [facility] Comment on above: Order Comment: Speci men Type: BLOOD SPECIMEN Ordering Facility: [facility] Address: [address] [place] [address] Result Comment: Test not indicated. Performed By: #### 7 3752-8, 33060-2, 24245-5 #### [facility] CLIA [id number] [address] [place] [address] OF [place] HIV 1+2 Ab+HIV1 p24 Ag IA Ql Non-Reactive Normal Nonreactive [facility] Comment on above: Order Comment: Speci men Type: BLOOD SPECIMEN Ordering Facility: [facility] Address: [address] [place] [address] Performed By: #### 7 3752-8, 60565-1, 13020-5 #### [facility] CLIA [id number] [address] [place] [address] [place] HIVINT Normal [facility] Comment on above: Order Comment: Speci men Type: BLOOD SPECIMEN Ordering Facility: [facility] Address: [address] [place] [address] Result Comment: No e vidence of HIV-1 [...] or diagnoses. Performed By: #### 7 3752-8, 55515-3, 70978-3 #### [facility] CLIA [id number] [address] [place] [address] [place] No Panel Informationon 08-19 [facility] PAP FLUID CERVICAL SCREENING on 08-19-2022 CASE REPORT Normal [facility] Comment on above: Order Comment: Speci men Type: FLUID SPECIMEN Ordering Facility: [facility] Address: [address] [place] [address] Result Comment: Gyne cologic Cytology Report Case: [id number] Authorizing Provider: Braulio Hollingsworth MD Collected: 08/19/2022 02:46 PM Ordering Location: Obstetrics/Gynecology Received: 08/20/2022 12:38 PM First Screen: Shelby Umaña, CT, ASCP Rescreen: Wandy Fraser, CT, ASCP Specimen: Pap, Adobe Ball Mixer, Screening, CERVICAL SCREENING FLUID Performed By: #### L [id number] #### [facility] CLIA [id number] [address] [place] [address] [place] CLINICAL HISTORY ABNORMAL PAP[LGSIL i n 2020 in [place] Normal [facility] Comment on above: Order Comment: Speci men Type: FLUID SPECIMEN Ordering Facility: [facility] Address: [address] [place], [place] [address] Performed By: #### L [id number] #### [facility] CLIA [id number] [address] [place] [address] [place] CYTOLOGY INTERPRETATION PAP Normal [facility] Comment on above: Order Comment: Speci men Type: FLUID SPECIMEN Ordering Facility: [facility] Address: [address] [place] [address] Result Comment: Nega tive for Intraepithelial lesion or malignancy. Performed By: #### L [id number] #### [facility] CLIA [id number] [address] [place] [address] OF [facility] FINAL DIAGNOSIS Normal [facility] Comment on above: Order Comment: Speci men Type: FLUID SPECIMEN Ordering Facility: [facility] Address: [address] [place], [place] [address] Result Comment: A - CERVICAL SCREENING FLUID Satisfactory for interpretation, Excess blood Negative for Intraepithelial lesion or malignancy. Performed By: #### L [id number] #### [facility] CLIA [id number] [address] [place] [address] [place] FINAL PERFORMING LAB Normal [facility] Comment on above: Order Comment: Speci men Type: FLUID SPECIMEN Ordering Facility: [facility] Address: [address] [place], [place] [address] Result Comment: Tech nical component, cook larder screening performed at [facility], [facility]0 [place] [id number] CLIA# [id number] Diagnostic interpretation performed at [facility], [address] [place] [address] CLIA# [id number] News Writer: Adam Farah M.D. Performed By: #### L [id number] #### [facility] CLIA [id number] [address] [place] [address] [place] GROSS DESCRIPTION Normal [facility] Comment on above: Order Comment: Speci men Type: FLUID SPECIMEN Ordering Facility: [facility] Address: [address] [address] Result Comment: A. C ERVICAL SCREENING FLUID Glacial Acetic Acid added. Performed By: #### L [id number] #### [facility] CLIA [id number] [address] [place] [address] [place] HPV REQUESTED? Yes, Reflex HPV for ASCUS Normal [facility] Comment on above: Order Comment: Speci men Type: FLUID SPECIMEN Ordering Facility: [facility] Address: [address] [address] Performed By: #### L [id number] #### [facility] CLIA [id number] [address] [place] [address] [place] LMP 06/21/2022() Normal [facility] Comment on above: Order Comment: Speci men Type: FLUID SPECIMEN Ordering Facility: [facility] Address: [address] [address] Performed By: #### L [id number] #### [facility] CLIA [id number] [address] [place] [address] [place] PAP DISCLAIMER COMMENT The Pap Smear is a screening test for cervical cancer. False negative results occur with all screening tests, emphasizing the need for rescreening at recommended intervals, and clinical correlation. Normal [facility] Comment on above: Order Comment: Speci men Type: FLUID SPECIMEN Ordering [facility]: [facility] Address: [address] [address] Performed By: #### L [id number] #### [facility] CLIA [id number] [address] [place] [address] [place] PAP 3D SPECIALIST COMMENT This specimen has been analyzed by the ThinPrep Imaging System, an automated imaging and review system, which assists the laboratory in evaluating cells on ThinPrep Pap tests. Following automated imaging, selected francis from every slide are reviewed by a cook larder. Normal [facility] Comment on above: Order Comment: Speci men Type: FLUID SPECIMEN Ordering Facility: [facility] Address: [address] [place] [address] Performed By: #### L [id number] #### [facility] CLIA [id number] [address] [place] [address] OF [place] RUBELLA IGG ABon 08-19-2022 RUBELLA IGG AB, QUAL Positive Normal Positive [facility] Comment on above: Order Comment: Eloise lopez Type: BLOOD SPECIMEN Ordering Facility: [facility] Address: [address] [place] [address] Result Comment: The result suggests recent or past exposure to Rubella virus or history of Rubella vaccination. Positive result may also be seen due to presence of passively-transferred antibodies. Please correlate with patient's history. Performed By: #### 7 3752-8, 34172-9, 11612-0 #### [facility] CLIA [id number] [address] STATES [place] Reagin and Treponema pallidu m IgG and IgM [Interp]on 08-19-2022 [place] INTERPRETATION Cannot exclude recent Treponemal infection if specimen collected within 7-10 days after appearance of suspect lesions or 2-3 weeks after an exposure. Clinical correlation is required. Normal [facility] Comment on above: Order Comment: Speci men Type: BLOOD SPECIMEN Ordering Facility: [facility] Address: [address] [place], [place] [address] Performed By: #### 7 3752-8, 52536-7, 54377-5 #### [facility] CLIA [id number] [address] [place] [address] [place] T. pallidum IgG+IgM IA Ql (S) Non-Reactive Normal Nonreactive [facility] Comment on above: Order Comment: Speci men Type: BLOOD SPECIMEN Ordering Facility: [facility] Address: [address] [place] [address] Performed By: #### 7 3752-8, 75436-1, 55485-8 #### [facility] CLIA [id number] [address] [place] [address] [place] TSH BLDon 08-19-2022 TSH Qn 1.190 m[IU]/L 0.270 - 4.200 mIU/L [facility] TSH SerPl-aCncon 08-19-2022 TSH Qn 1.190 m[IU]/L Normal 0.270-4.200 [facility] Comment on above: Order Comment: Speci men Type: BLOOD SPECIMEN Ordering Facility: [facility] Address: [address] [place] [address] Result Comment: If t he patient is , TSH reference range varies by gestational period: First Trimester (weeks 9-12): 0.180-2.990 mIU/L Second Trimester: 0.110-3.980 mIU/L Third Trimester: 0.480-4.710 mIU/L Rafiq Winston et al. A Practical Approach for the Verifications and Determination of Site- and Trimester-Specific Reference Intervals for Thyroid Function tests in . Thyroid, 2019:29:3:412-420. William Bautista, et al. 2017 Guidelines of the [place] Thy[employer] for the Diagnosis and Management of Thyroid Disease during and the . Thyroid, 2017:27:3:315-389. Performed By: #### 3 016-3 #### [facility] CLIA [id number] [address] [place] [address] [place] TYPE + SCREEN PRENATALon ABO O [facility] HIstorical Ab Scr Status Negative [facility] Rh Nom (Bld) Positive [facility] Type and Screen Expiration 08/22/2022 23:59 [facility] ABO O Normal [facility] Comment on above: Order Comment: Speci men Type: BLOOD SPECIMEN Ordering Facility: [facility] Address: [address] [place] [address] Performed By: #### T SPN #### [facility] CLIA [id number] [address] HISTORICAL AB SCR STATUS Negative Normal [facility] Comment on above: Order Comment: Speci men Type: BLOOD SPECIMEN Ordering Facility: [facility] Address: [address] [address] Performed By: #### T SPN #### [facility] CLIA [id number] [address] Rh Nom (Bld) Positive Normal [facility] Comment on above: Order Comment: Speci men Type: BLOOD SPECIMEN Ordering Facility: [facility] Address: [address] [place] [address] Performed By: #### T SPN #### [facility] CLIA [id number] [address] TYPE AND SCREEN EXPIRATION 08/22/2022 23:59 Normal [facility] Comment on above: Order Comment: Speci men Type: BLOOD SPECIMEN Ordering Facility: [facility] Address: [address] [place] [address] Performed By: #### T SPN #### [facility] CLIA [id number] [address] [place] [address] [place] URINE OB DIP B/Oon 2 Glucose Ql (U) Negative Neg mg/dL [facility] Protein.monoclonal (U) [Mass/Vol] Negative Neg mg/dL [facility] CONFIRM BLOOD TYPEon 022 ABO O Normal [facility] Comment on above: Order Comment: Speci men Type: BLOOD SPECIMEN Ordering Facility: [facility] Address: [address] [place] [address] Performed By: #### C ONABO #### [facility] CLIA [id number] [address] OF [place] Rh Nom (Bld) Positive Normal [facility] Comment on above: Order Comment: Speci men Type: BLOOD SPECIMEN Ordering Facility: [facility] Address: [address] [place] [address] Performed By: #### C ONABO #### [facility] [place] [id number] [address] ED Triage Noteon 08-14-2022 ED Triage Note HNO ID: [id number] Author: Kaushik Justice APRN.CNP Service: Emergency Medicine [...] a week. She was previously seen at [facility] where she states she had an [...] positive send OB triage SIGNATURE: Kaushik Justice APRN.TERMITE CONTROL SERVICER Normal [facility] TYPE + SCREEN PRENATALon ABO O Normal [facility] Comment on above: Order Comment: Speci men Type: BLOOD SPECIMEN Ordering Facility: [facility] Address: [address] [place] [address] Performed By: #### T SPN #### [facility] [id number] [address] HISTORICAL AB SCR STATUS Negative Normal [facility] Comment on above: Order Comment: Speci men Type: BLOOD SPECIMEN Ordering Facility: [facility] Address: [address] Performed By: #### T SPN #### [facility] CLIA [id number] [address] Rh Nom (Bld) Positive Normal [facility] Comment on above: Order Comment: Speci men Type: BLOOD SPECIMEN Ordering Facility: [facility] Address: [address] [place] [address] Performed By: #### T SPN #### [facility] CLIA [id number] [address] TYPE AND SCREEN EXPIRATION 08/17/2022 23:59 Normal [facility] Comment on above: Order Comment: Speci men Type: BLOOD SPECIMEN Ordering Facility: [facility] Address: [address] [place] [address] Performed By: #### T SPN #### [facility] CLIA [id number] [address] 08-10-2022 [facility] Telephone (OBGMEM) LZU OLIVEIRA ([id number]) 2000 F Date Time Provider Department 08/10/22 [...] 11/11/22 Normal [facility] Absolute lymphocyte counton 08-09-2022 Lymphocytes Auto (Unsp spec) [#/Vol] 1.23 10*3/uL 0.83-4.51 [facility] Work Phone: Basophil percentageon 2021 Basophils/100 WBC (Bld) 0.2 % 0-1 [facility] Work Phone: Bilirubin [Mass/Vol] 0.50 mg/dL 0.20-1.00 [facility] Work Phone: Comment on above: For patients on eltr ombopag therapy, use of Dimension [place] TBIL is not recommended. Chloride [Moles/Vol] 107 mmol/L 98-107 [facility] Work Phone: Eosinophils/100 WBC (Bld) 0.3 % 0-5 [facility] Work Phone: Glucose [Mass/Vol] 122 mg/dL 74-106 [facility] Work Phone: Comment on above: Fasting Glucose resu lt from 100 to 125 mg/dL suggests IMPAIRED HOMEOSTASIS per A.D.A. criteria. Neutrophils (Bld) [#/Vol] 4.2 10*3/uL 2.0-7.7 [facility] [facility] Work Phone: Neutrophils/100 WBC (Bld) 71.9 % 47-70 [facility] Work Phone: Potassium [Moles/Vol] 3.5 mmol/L 3.5-5.1 [facility] Work Phone: Protein [Mass/Vol] 7.3 g/dL 6.4-8.2 [facility] Work Phone: Sodium [Moles/Vol] 139 mmol/L 136-145 [facility] Work Phone: WBC (Bld) [#/Vol] 5.9 10*3/uL 4.4-11.0 [facility] Work Phone: Basophil percentage 0 SEEN /hpf 0-5 [facility] Work Phone: Beta hCG serum qualon 2021 Beta HCG ( test) Ql Negative [facility] Work Phone: Comment on above: TEST is *P OSITIVE* Bilirubin Test strip Ql (U)o n 08-09-2022 Bilirubin Ql (U) Negative Negative [facility] Work Phone: Blood erythrocytes count (nu mber/volume)on 08-09-2022 RBC (Bld) [#/Vol] 4.26 10*6/uL 4.2-5.4 [facility] Work Phone: Blood hemoglobin measurement (mass/volume)on 08-09-2022 Hemoglobin (Bld) [Mass/Vol] 13.4 g/dL 12.0-15.0 [facility] Work Phone: [phone] Blood lymphocytes/100 leukoc yteson 08-09-2022 Lymphocytes/100 WBC (Bld) 21.0 % 19-41 [facility] Work Phone: [phone] Blood monocytes/100 leukocyt eson 08-09-2022 Monocytes/100 WBC (Bld) 6.3 % 0-10 [facility] Work Phone: [phone] Blood platelet mean volumeon 08-09-2022 Platelet mean volume (Bld) [Entitic vol] 10.1 fL 6.2-12.0 [facility] Work Phone: [phone] Determination of erythrocyte mean corpuscular volume (MCV)on 08-09-2022 MCV (RBC) [Entitic vol] 91.8 fL 81-99 [facility] Work Phone: Hematocrit Auto (Bld) [Volum e fraction]on 08-09-2022 Hematocrit (Bld) [Volume fraction] 39.1 % 37-47 [facility] Work Phone: [phone] Ketones Test strip Ql (U)on 08-09-2022 Ketones Ql (U) Negative Negative [facility] Work Phone: [phone] Laboratory - Chemistry and C hemistry - challengeon 08-09-2022 ALP [Catalytic activity/Vol] 56 U/L 45-117 [facility] Work Phone: ALT [Catalytic activity/Vol] 67 U/L 13-56 [facility] Work Phone: [phone] CO2 [Moles/Vol] 25.0 mmol/L 21.0-32.0 [facility] Work Phone: Globulin (S) [Mass/Vol] 3.5 g/dL 2.2-4.2 [facility] Work Phone: [phone] Urea nitrogen/Creatinine [Mass ratio] 9.7 mg/mg 10-20 [facility] Work Phone: [phone] Laboratory - Hematology and Cell countson 08-09-2022 Erythrocyte distribution width (RBC) [Entitic vol] 42.5 fL 35.1-43.9 [facility] Work Phone: [phone] Erythrocyte distribution width (RBC) [Ratio] 12.8 % 11.6-14.6 [facility] Work Phone: [phone] Immature granulocytes/100 WBC (Bld) 0.300 % 0.0-0.9 [facility] Work Phone: [phone] Comment on above: IG% - Immature Granu locytes (promyelocytes, myelocytes and metamyelocytes) > 1% indicates that a LEFT SHIFT is Present. MCH (RBC) [Entitic mass] 31.5 pg 27.0-32.0 [facility] Work Phone: [phone] Nucleated RBC/100 WBC (Bld) [Ratio] 0 % 0-5 [facility] Work Phone: [phone] MCHC Auto (RBC) [Mass/Vol]on 08-09-2022 MCHC (RBC) [Mass/Vol] 34.3 g/dL 32-36 [facility] Work Phone: [phone] Mucus LM Ql (Urine sed)on Mucus Ql (Urine sed) 0 SEEN /hpf [facility] Work Phone: [phone] Nitrite Test strip Ql (U)on 08-09-2022 Nitrite Ql (U) Negative Negative [facility] Work Phone: [phone] Panel Informationon 08-09 Estimated Creatinine Clearance Calc 81.20 ml/min [facility] Work Phone: [phone] Estimated GFR (MDRD) Amer 111 mL/min >60 [facility] Work Phone: [phone] Comment on above: GFR Calc Estimated GFR (MDRD) Non-Af Amer 91 mL/min >60 [facility] Work Phone: Comment on above: Non- GFR Calc Platelets bldon 08-09-2022 Platelets (Bld) [#/Vol] 224 10*3/uL 150-450 [facility] Work Phone: Protein Test strip Ql (U)on 08-09-2022 Protein Ql (U) Negative Negative [facility] Work Phone: Serum or plasma albumin sabino urement (mass/volume)on 08-09-2022 Albumin [Mass/Vol] 3.8 g/dL 3.2-5.0 [facility] Work Phone: Serum or plasma albumin/glob ulin mass ratioon 08-09-2022 Albumin/Globulin [Mass ratio] 1.1 {ratio} 0.9-2.4 [facility] Work Phone: Serum or plasma calcium sabino urement (mass/volume)on 08-09-2022 Calcium [Mass/Vol] 9.2 mg/dL 8.5-10.1 [facility] Work Phone: Serum or plasma choriogonado tropin detectionon 08-09-2022 HCG ( test) Ql 57087 mIU/mL <4 [facility] Work Phone: Comment on above: hCG levels with Gest ational AgeGestational Age hCG mIU/mL (IU/L)0.2 - 1 week 5 - 501-2 weeks 50 - 5002-3 weeks 100 - 56412-3 weeks 500 - 118546-8 weeks 1000 - 881717-4 weeks 83046 - 100,0006-8 weeks 34535 - 200,0002-3 months 21420 - 100,000 Serum or plasma creatinine m easurement (mass/volume)on 08-09-2022 Creatinine [Mass/Vol] 0.82 mg/dL 0.55-1.02 [facility] Work Phone: Comment on above: The validity of the calculated GFR & GFRAA in patients over 70 years has not been determined. Clinical correlation is essential. Serum or plasma urea nitroge n measurement (mass/volume)on 08-09-2022 Urea nitrogen [Mass/Vol] 8 mg/dL 7-18 [facility] Work Phone: Squamous epithelial cells de tection in urine sediment by light microscopyon 08-09-2022 Epithelial cells.squamous LM Ql (Urine sed) 0-5 SEEN /hpf 5-10 [facility] Work Phone: Thin prep Papanicolaou smear with manual screeningon 08-09-2022 Thin prep Papanicolaou smear with manual screening 38 U/L 15-37 [facility] Work Phone: [phone] Thin prep Papanicolaou smear with manual screening 7 5-15 [facility] Work Phone: Urine blood detectionon 07-13 RBC Ql (U) 25 /ul Negative [facility] Work Phone: RBC Ql (U) 0 SEEN /hpf 0-5 [facility] Work Phone: Urine clarityon 08-09-2022 Clarity (U) Clear Clear [facility] Work Phone: Urine color determinationon 08-09-2022 Color (U) Yellow Yellow [facility] Work Phone: Urine glucose detectionon Glucose Ql (U) Normal mg/dl Normal [facility] Work Phone: Urine leukocyte esterase det ection by dipstickon 08-09-2022 Leukocyte esterase Test strip Ql (U) 25 /ul Negative [facility] Work Phone: Urine pHon 08-09-2022 pH (U) 7.0 [pH] 5.0 - 8.0 [facility] Work Phone: Urine sediment bacteria coun t by microscopy (number/high power field)on 08-09-2022 Bacteria LM.HPF (Urine sed) [#/Area] 0 /[HPF] None Seen [facility] Work Phone: Urine specific gravity measu rementon 08-09-2022 Specific gravity (U) [Rel density] 1.010 1.002-1.030 [facility] Work Phone: Urobilinogen Auto test strip Ql (U)on 08-09-2022 Urobilinogen Ql (U) Normal mg/dl Normal [facility] Work Phone: CBCon 08-04-2022 Hematocrit (Bld) [Volume [...] vol] 9.9 fL 7.4 - 12.4 fL [facility] Comment on above: MPV is a calculated measurement using platelet volume ratio. Platelets (Bld) [#/Vol] 217 10*3/uL 140 - 440 10*3/uL [facility] RBC (Bld) [#/Vol] 4.27 10*6/uL 3.80 - 5.2 0 10*6/uL [facility] WBC (Bld) [#/Vol] 5.4 10*3/uL 3.6 - 10.7 10*3/uL [facility] Test Performed by [facility], [address] [place] [address]. [address] LAB [facility] HCG, QUANTITATIVE, on 08-04-2022 hCG Quant 3840 m[IU]/mL [facility] Comment on above: Females < 5 [...] or gestational trophoblastic disease. Test Performed by [facility], [address] [place] [address] LAB [facility] Hemogram 08-04-2022 Erythrocyte distribution width (RBC) [Ratio] 12.8 % Normal 11.5-14.5 [facility] Comment on above: Performed By: #### H IZAG QWNT5 #### [address] [place] [address] Hematocrit (Bld) [Volume fraction] 39.2 % Normal 35.0-47.0 [facility] Comment on above: Performed By: #### H LIONEL QWNT5 #### [address] [place] [address] Hemoglobin (Bld) [Mass/Vol] 13.4 g/dL Normal 11.7-16.0 [facility] Comment on above: Performed By: #### H EMOG QWNT5 #### [address] [place] [address] MCH (RBC) [Entitic mass] 31.4 pg Normal 26.0-34.0 [facility] Comment on above: Performed By: #### H EMOG, QWNT5 #### [address] [place] [address] MCHC 34.2 % Normal 32.0-36.0 [facility] Comment on above: Performed By: #### H EMOG, QWNT5 #### [address] [place] [address] MCV (RBC) [Entitic vol] 91.8 fL Normal 79.0-98.0 [facility] Comment on above: Performed By: #### H EMOSamuel, QWNT5 #### [facility] [address] [place] [address] Platelet mean volume (Bld) [Entitic vol] 9.9 fL Normal 7.4-12.4 [facility] Comment on above: Result Comment: MPV is a calculated measurement using platelet volume ratio. Performed By: #### H EMOG, QWNT5 #### [facility] [address] [place] [address] Platelets (Bld) [#/Vol] 217 10*3/uL Normal 140-440 [facility] Comment on above: Performed By: #### H EMOG, QWNT5 #### [facility] [address] [place] [address] RBC (Bld) [#/Vol] 4.27 10*6/uL Normal 3.80-5.20 [facility] Comment on above: Performed By: #### H EMOG, QWNT5 #### [facility] [address] [place] [address] WBC (Bld) [#/Vol] 5.4 10*3/uL Normal 3.6-10.7 [facility] Comment on above: Performed By: #### H EMOG, QWNT5 #### [facility] [address] [place] [address] GELon 08-04-2022 GEL ABO Group: O Rh, Gel: POS Antibody Screen Gel: NEG Normal [facility] Comment on above: Performed By: #### P NGL #### [facility] TYPE AND SCREENon 1 ABO Grouping O [facility] Work Phone: Rh Type Positive [facility] Work Phone: Test Performed by [facility], [address] , [place], [place] [id number] [place] [address] LAB [facility] Work Phone: US OB TRANSVAGINALon 2 022 Patient Name: LUZ OLIVEIRA Ultrasound ACCESSION EXAM DATE/TIME PROCEDURE ORDERING PROVIDER [id number] 08/04/2022 12:05 EDT [place] [id number] HARRISON Transvaginal CPT code 98478 Reason For Exam (US Transvaginal) 7 weeks [...] ALFRED Transcribed Date and Time: 08/04/2022 12:31 [facility] Silas Pickens DO - 08/04/2022 Patient Name: LUZ OLIVEIRA Ultrasound ACCESSION EXAM DATE/TIME PROCEDURE ORDERING PROVIDER [id number] 08/04/2022 12:05 EDT US MELANIA OCAMPO Transvaginal CPT code 55031 Reason For Exam (US Transvaginal) 7 weeks [...] TRANSVAGINALOrdered By : Silas Pickens on 08-04-2022 [facility] Work [facility]: US Transvaginalon 08-04-2022 US Transvaginal Patient Name: LUZ OLIVEIRA Ultrasound ACCESSION EXAM DATE/TIME PROCEDURE ORDERING PROVIDER [id number] 08/04/2022 12:05 EDT [place] [id number] -AUSTYNIRAI, ANIS Transvaginal CPT code 53371 Reason For Exam (US Transvaginal) 7 weeks [...] Transcribed Date and Time: 08/04/2022 12:31 Normal [facility] hCG Quantitativeon hCG Quantitative 3840 m[IU]/mL Normal [facility] Comment on above: Result Comment: Fema les [...] gestational trophoblastic disease. Performed By: #### H [facility], QWNT5 #### [facility] [address] [place] [address] CNCOon 07-20-2022 CNCO Letter Text Normal [facility] Eliecer 07-09-2022 [facility] Telephone ([employer] LUZ OLIVEIRA ([id number]) 2000 F Date Time Provider Department 07/09/22 [...] (FLONASE) 50 mcg/actuation nasal spray Use 1 [place] in each nostril once daily. 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: Eosinophils/100 WBC (Bld) 0.2 % 0-5 [facility] Work Phone: Glucose [Mass/Vol] 98 mg/dL 74-106 [facility] Work Phone: Neutrophils (Bld) [#/Vol] 6.1 10*3/uL 2.0-7.7 [facility] Work Phone: Neutrophils/100 WBC (Bld) 72.2 % 47-70 [facility] Work Phone: Potassium [Moles/Vol] 3.9 mmol/L 3.5-5.1 [facility] Work Phone: Sodium [Moles/Vol] 142 mmol/L 136-145 [facility] Work Phone: WBC (Bld) [#/Vol] 8.5 10*3/uL 4.4-11.0 [facility] Work Phone: Beta hCG serum qualon 2021 Beta HCG ( test) Ql Negative [facility] Work Phone: Bilirubin Test strip Ql (U)o n 06-29-2022 Bilirubin Ql (U) Negative Negative [facility] Work Phone: Blood erythrocytes count (nu mber/volume)on 06-29-2022 RBC (Bld) [#/Vol] 4.44 10*6/uL 4.2-5.4 [facility] Work Phone: Blood hemoglobin measurement (mass/volume)on 06-29-2022 Hemoglobin (Bld) [Mass/Vol] 13.7 g/dL 12.0-15.0 [facility] Work Phone: Blood lymphocytes/100 leukoc yteson 06-29-2022 Lymphocytes/100 WBC (Bld) 21.2 % 19-41 [facility] Work Phone: Blood monocytes/100 leukocyt eson 06-29-2022 Monocytes/100 WBC (Bld) 5.8 % 0-10 [facility] Work Phone: [phone] Blood platelet mean volumeon 06-29-2022 Platelet mean volume (Bld) [Entitic vol] 9.9 fL 6.2-12.0 [facility] Work Phone: Determination of erythrocyte mean corpuscular volume (MCV)on 06-29-2022 MCV (RBC) [Entitic vol] 90.5 fL 81-99 [facility] Work Phone: Hematocrit Auto (Bld) [Volum e fraction]on 06-29-2022 Hematocrit (Bld) [Volume fraction] 40.2 % 37-47 [facility] Work Phone: [phone] Ketones Test strip Ql (U)on 06-29-2022 Ketones Ql (U) Negative Negative [facility] Work Phone: Laboratory - Chemistry and C hemistry - challengeon 06-29-2022 CO2 [Moles/Vol] 28.0 mmol/L 21.0-32.0 [facility] Work Phone: Urea nitrogen/Creatinine [Mass ratio] 23.1 mg/mg 10-20 [facility] Work Phone: [phone] Laboratory - Hematology and Cell countson 06-29-2022 Erythrocyte distribution width (RBC) [Entitic vol] 41.0 fL 35.1-43.9 [facility] Work Phone: [phone] Erythrocyte distribution width (RBC) [Ratio] 12.7 % 11.6-14.6 [facility] Work Phone: [phone] Immature granulocytes/100 WBC (Bld) 0.500 % 0.0-0.9 [facility] Work Phone: [phone] Comment on above: IG% - Immature Granu locytes (promyelocytes, myelocytes and metamyelocytes) > 1% indicates that a LEFT SHIFT is Present. MCH (RBC) [Entitic mass] 30.9 pg 27.0-32.0 [facility] Work Phone: Nucleated RBC/100 WBC (Bld) [Ratio] 0 % 0-5 [facility] Work Phone: MCHC Auto (RBC) [Mass/Vol]on 06-29-2022 MCHC (RBC) [Mass/Vol] 34.1 g/dL 32-36 [facility] Work Phone: Mucus LM Ql (Urine sed)on Mucus Ql (Urine sed) 0 SEEN /hpf [facility] Work Phone: Nitrite Test strip Ql (U)on 06-29-2022 Nitrite Ql (U) Negative Negative [facility] Work Phone: No Panel Informationon 06-29 Estimated Creatinine Clearance Calc 89.98 ml/min [facility] Work Phone: Estimated GFR (MDRD) Amer 126 mL/min >60 [facility] Work Phone: Comment on above: GFR Calc Estimated GFR (MDRD) Non-Af Amer 104 mL/min >60 [facility] Work Phone: Comment on above: Non- GFR Calc Platelets bldon 06-29-2022 Platelets (Bld) [#/Vol] 287 10*3/uL 150-450 [facility] Work Phone: Protein Test strip Ql (U)on 06-29-2022 Protein Ql (U) 30 mg/dl Negative [facility] Work Phone: [phone] Serum or plasma calcium sabino urement (mass/volume)on 06-29-2022 Calcium [Mass/Vol] 9.7 mg/dL 8.5-10.1 [facility] Work Phone: [phone] Serum or plasma creatinine m easurement (mass/volume)on 06-29-2022 Creatinine [Mass/Vol] 0.74 mg/dL 0.55-1.02 [facility] Work Phone: Comment on above: The validity of the calculated GFR & GFRAA in patients over 70 years has not been determined. Clinical correlation is essential. Serum or plasma urea nitroge n measurement (mass/volume)on 06-29-2022 Urea nitrogen [Mass/Vol] 17 mg/dL 7-18 [facility] Work Phone: Squamous epithelial cells de tection in urine sediment by light microscopyon 06-29-2022 Epithelial cells.squamous LM Ql (Urine sed) 0-5 SEEN /hpf 5-10 [facility] Work Phone: Thin prep Papanicolaou smear with manual screeningon 06-29-2022 Thin prep Papanicolaou smear with manual screening 8 5-15 [facility] Work Phone: Urine blood detectionon 06-11 RBC Ql (U) 25 /ul Negative [facility] Work Phone: RBC Ql (U) 0-5 SEEN /hpf 0-5 [facility] Work Phone: Urine clarityon 06-29-2022 Clarity (U) Clear Clear [facility] Work Phone: Urine color determinationon 06-29-2022 Color (U) Yellow Yellow [facility] Work Phone: Urine glucose detectionon Glucose Ql (U) Normal mg/dl Normal [facility] Work Phone: Urine leukocyte esterase det ection by dipstickon 06-29-2022 Leukocyte esterase Test strip Ql (U) 25 /ul Negative [facility] Work Phone: Urine pHon 06-29-2022 pH (U) 6.5 [pH] 5.0 - 8.0 [facility] Work Phone: Urine sediment bacteria coun t by microscopy (number/high power field)on 06-29-2022 Bacteria LM.HPF (Urine sed) [#/Area] 0 /[HPF] None Seen [facility] Work Phone: Urine specific gravity measu rementon 06-29-2022 Specific gravity (U) [Rel density] 1.010 1.002-1.030 [facility] Work Phone: Urobilinogen Auto test strip Ql (U)on 06-29-2022 Urobilinogen Ql (U) Normal mg/dl Normal [facility] Work Phone: CBC W Auto Differential pane l (Bld)on 05-31-2022 Basophils (Bld) [#/Vol] 10*3/uL Normal <0.11 [facility] Comment on above: Order Comment: Speci men Type: BLOOD SPECIMENOrdering Facility: [facility] Address: [address] [address] Performed By: #### 5 7021-8 ####[facility] LABORATORYCLIA [id number] [address] [place] Basophils/100 WBC (Bld) 0.0 % Normal [facility] Comment on above: Order Comment: Speci men Type: BLOOD SPECIMENOrdering Facility: [facility] Address: [address] [place] [address] Performed By: #### 5 7021-8 ####[facility] LABORATORYCLIA [id number] [address] [place] Differential cell count method Nom (Bld) Auto Normal [facility] Comment on above: Order Comment: Speci men Type: BLOOD SPECIMENOrdering Facility: [facility] Address: [address] [place] [address] Performed By: #### 5 7021-8 ####[facility]ORATORYCLIA [id number] [place] [address] [place] Eosinophils (Bld) [#/Vol] 10*3/uL Normal <0.46 [facility] Comment on above: Order Comment: Speci men Type: BLOOD SPECIMENOrdering Facility: [facility] Address: [address] [place] [address] Performed By: #### 5 7021-8 ####[facility] LABORATORYCLIA [id number] [place] [address] [place] Eosinophils/100 WBC (Bld) 0.2 % Normal [facility] Comment on above: Order Comment: Speci men Type: BLOOD SPECIMENOrdering Facility: [facility] Address: [address] [place] [address] Performed By: #### 5 7021-8 ####[facility] LABORATORYCLIA [id number] [address] Erythrocyte distribution width (RBC) [Ratio] 12.5 % Normal 11.5-15.0 [facility] Comment on above: Order Comment: Speci men Type: BLOOD SPECIMENOrdering Facility: [facility] Address: [address] [place] [address] Performed By: #### 5 7021-8 ####[facility] LABORATORYCLIA [id number] [address] Hematocrit (Bld) [Volume fraction] 38.8 % Normal 36.0-46.0 [facility] Comment on above: Order Comment: Speci men Type: BLOOD SPECIMENOrdering Facility: [facility] Address: [address] [place] [address] Performed By: #### 5 7021-8 ####[facility] LABORATORYCLIA [id number] [address] Hemoglobin (Bld) [Mass/Vol] 13.4 g/dL Normal 11.5-15.5 [facility] Comment on above: Order Comment: Speci men Type: BLOOD SPECIMENOrdering Facility: [facility] Address: [address] [place] [address] Performed By: #### 5 7021-8 ####[facility] LABORATORYCLIA [id number] [address] IMMATURE GRAN % 0.2 % Normal [facility] Comment on above: Order Comment: Speci men Type: BLOOD SPECIMENOrdering Facility: [facility] Address: [address] [place] [address] Performed By: #### 5 7021-8 ####[facility] LABORATORYCLIA [id number] [place] [address] IMMATURE GRAN ABS <0.03 Normal <0.10 [facility] Comment on above: Order Comment: Speci men Type: BLOOD SPECIMENOrdering Facility: [facility] Address: [address] [place] [address] Performed By: #### 5 7021-8 ####[facility] LABORATORYCLIA [id number] [address] OF [facility] Lymphocytes (Bld) [#/Vol] 1.08 10*3/uL Normal 1.00-4.00 [facility] Comment on above: Order Comment: Speci men Type: BLOOD SPECIMENOrdering Facility: [facility] Address: [address] [place] [address] Performed By: #### 5 7021-8 ####[facility] LABORATORYCLIA [id number] [address] Lymphocytes/100 WBC (Bld) 26.3 % Normal [facility] Comment on above: Order Comment: Speci men Type: BLOOD SPECIMENOrdering Facility: [facility] Address: [address] [place] [address] Performed By: #### 5 7021-8 ####[facility] LABORATORYCLIA [id number] [address] MCH (RBC) [Entitic mass] 30.2 pg Normal 26.0-34.0 [facility] Comment on above: Order Comment: Speci men Type: BLOOD SPECIMENOrdering Facility: [facility] Address: [address] [place] [address] Performed By: #### 5 7021-8 ####[facility] LABORATORYCLIA [id number] [address] MCHC (RBC) [Mass/Vol] 34.5 g/dL Normal 30.5-36.0 [facility] Comment on above: Order Comment: Speci men Type: BLOOD SPECIMENOrdering Facility: [facility] Address: [address] [place] [address] Performed By: #### 5 7021-8 ####[facility]ORATORYCLIA [id number] [address] [place] MCV (RBC) [Entitic vol] 87.6 fL Normal 80.0-100.0 [facility] Comment on above: Order Comment: Speci men Type: BLOOD SPECIMENOrdering Facility: [facility] Address: [address] [place] [address] Performed By: #### 5 7021-8 ####[facility]ATORYCLIA [id number] [address] [place] Monocytes (Bld) [#/Vol] 0.34 10*3/uL Normal <0.87 [facility] Comment on above: Order Comment: Speci men Type: BLOOD SPECIMENOrdering Facility: [facility] Address: [address] [place] [address] Performed By: #### 5 7021-8 ####[facility] LABORATORYCLIA [id number] [address] Monocytes/100 WBC (Bld) 8.3 % Normal [facility] Comment on above: Order Comment: Speci men Type: BLOOD SPECIMENOrdering Facility: [facility] Address: [address] [place] [address] Performed By: #### 5 7021-8 ####[facility] LABORATORYCLIA [id number] [address] [place] Neutrophils (Bld) [#/Vol] 2.66 10*3/uL Normal 1.45-7.50 [facility] Comment on above: Order Comment: Speci men Type: BLOOD SPECIMENOrdering Facility: [facility] Address: [address] [place] [address] Performed By: #### 5 7021-8 ####[facility] LABORATORYCLIA [id number] [address] [place] Neutrophils/100 WBC (Bld) 65.0 % Normal [facility] Comment on above: Order Comment: Speci men Type: BLOOD SPECIMENOrdering Facility: [facility] Address: [address] Performed By: #### 5 7021-8 ####[facility] LABORATORYCLIA [id number] [address] Nucleated RBC (Bld) [#/Vol] 10*3/uL Normal <0.01 [facility] Comment on above: Order Comment: Speci men Type: BLOOD SPECIMENOrdering Facility: [facility] Address: [address] Performed By: #### 5 7021-8 ####[facility] LABORATORYCLIA [id number] [address] Nucleated RBC/100 WBC (Bld) [Ratio] 0.0 /100 WBC Normal [facility] Comment on above: Order Comment: Speci men Type: BLOOD SPECIMENOrdering Facility: [facility] Address: [address] [place] [address] Performed By: #### 5 7021-8 ####[facility] LABORATORYCLIA [id number] [address] STATES [facility] Platelet mean volume (Bld) [Entitic vol] 9.7 fL Normal 9.0-12.7 [facility] Comment on above: Order Comment: Speci men Type: BLOOD SPECIMENOrdering Facility: [facility] Address: [address] Performed By: #### 5 7021-8 ####[facility] LABORATORYCLIA [id number] [address] Platelets (Bld) [#/Vol] 178 10*3/uL Normal 150-400 [facility] Comment on above: Order Comment: Speci men Type: BLOOD SPECIMENOrdering Facility: [facility] Address: [address] [place] [address] Performed By: #### 5 7021-8 ####[facility] LABORATORYCLIA [id number] [address] [place] RBC (Bld) [#/Vol] 4.43 10*6/uL Normal 3.90-5.20 [facility] Comment on above: Order Comment: Speci men Type: BLOOD SPECIMENOrdering Facility: [facility] Address: [address] [place] [address] Performed By: #### 5 7021-8 ####[facility] LABORATORYCLIA [id number] [address] OF [facility] WBC (Bld) [#/Vol] 4.10 10*3/uL Normal 3.70-11.00 [facility] Comment on above: Order Comment: Speci men Type: BLOOD SPECIMENOrdering Facility: [facility] Address: [address] [place] [address] Performed By: #### 5 7021-8 ####[facility] LABORATORYCLIA [id number] [address] Comprehensive metabolic 2000 panelon 05-31-2022 Albumin [Mass/Vol] 4.5 g/dL Normal 3.9-4.9 [facility] Comment on above: Order Comment: Speci men Type: BLOOD SPECIMENOrdering Facility: [facility] Address: [address] [place] [address] Performed By: #### 3 040-3, 99892-7, 18195-5 ####[facility] LABORATORYCLIA [id number] [address] STATES OF [facility] ALP [Catalytic activity/Vol] 60 U/L Normal 34-123 [facility] Comment on above: Order Comment: Speci men Type: BLOOD SPECIMENOrdering Facility: [facility] Address: [address] [place] [address] Performed By: #### 3 040-3, 02436-1, 04936-1 ####[facility] LABORATORYCLIA [id number] [address] OF [facility] ALT With P-5'-P [Catalytic activity/Vol] 55 U/L High 7-38 [facility] Comment on above: Order Comment: Speci men Type: BLOOD SPECIMENOrdering Facility: [facility] Address: [address] [place] [address] Performed By: #### 3 040-3, , ####[facility] LABORATORYCLIA [id number] [address] STATES OF [facility] Anion gap [Moles/Vol] 12 mmol/L Normal 9-18 [facility] Comment on above: Order Comment: Speci men Type: BLOOD SPECIMENOrdering Facility: [facility] Address: [address] [place] [address] Performed By: #### 3 040-3, , ####[facility] LABORATORYCLIA [id number] [place] [address] [place] AST With P-5'-P [Catalytic activity/Vol] 57 U/L High 13-35 [facility] Comment on above: Order Comment: Speci men Type: BLOOD SPECIMENOrdering Facility: [facility] Address: [address] [place] [address] Performed By: #### 3 040-3, , ####[facility] LABORATORYCLIA [id number] [place] [address] [place] Bilirubin [Mass/Vol] 0.5 mg/dL Normal 0.2-1.3 [facility] Comment on above: Order Comment: Speci men Type: BLOOD SPECIMENOrdering Facility: [facility] Address: [address] [place] [address] Performed By: #### 3 040-3, 84873-4, ####[facility] LABORATORYCLIA [id number] [address] [place] Calcium [Mass/Vol] 8.9 mg/dL Normal 8.5-10.2 [facility] Comment on above: Order Comment: Speci men Type: BLOOD SPECIMENOrdering Facility: [facility] Address: [address] [place] [address] Performed By: #### 3 040-3, 01237-8, ####[facility] LABORATORYCLIA [id number] [place] [address] [place] Chloride [Moles/Vol] 102 mmol/L Normal 97-105 [facility] Comment on above: Order Comment: Speci men Type: BLOOD SPECIMENOrdering Facility: [facility] Address: [address] [place] [address] Performed By: #### 3 040-3, 24264-7, ####[facility] LABORATORYCLIA [id number] [place] [address] [place] CO2 [Moles/Vol] 25 mmol/L Normal 22-30 [facility] Comment on above: Order Comment: Speci men Type: BLOOD SPECIMENOrdering Facility: [facility] Address: [address] [place] [address] Performed By: #### 3 040-3, , ####[facility]ORATORYCLIA [id number] [address] OF [facility] Creatinine [Mass/Vol] 0.74 mg/dL Normal 0.58-0.96 [facility] Comment on above: Order Comment: Speci men Type: BLOOD SPECIMENOrdering Facility: [facility] Address: [address] [place] [address] Performed By: #### 3 040-3, , ####[facility] LABORATORYCLIA [id number] [address] ESTIMATED GLOMERULAR FILTRATION RATE 117 mL/min/1.73m??? Normal >=60 [facility] Comment on above: Order Comment: Speci men Type: BLOOD SPECIMENOrdering Facility: [facility] Address: [address] [place] [address] Result Comment: Tierra mated Glomerular Filtration Rate [...] GFR. Performed By: #### 3 040-3, , ####[facility] LABORATORYCLIA [id number] [place] [address] [place] Glucose [Mass/Vol] 91 mg/dL Normal 74-99 [facility] Comment on above: Order Comment: Eloise lopez Type: BLOOD SPECIMENOrdering Facility: [facility] Address: [address] [place] [phone] Result Comment: The [place] Diabetes Association (ADA) provides guidance for cutoff [...] Standards of Medical Care in Diabetes 2016, [place] [employer]. Diabetes Care. 2016.39(Suppl 1). Performed By: #### 3 040-3, , ####[facility]ORATORYCLIA [id number] [place] [id number] [place] Potassium [Moles/Vol] 3.6 mmol/L Low 3.7-5.1 [facility] Comment on above: Order Comment: Eloise lopez Type: BLOOD SPECIMENOrdering Facility: [facility] Address: [address] [place] [address] Performed By: #### 3 040-3, , ####[facility] LABORATORYCLIA [id number] [place] [address] [place] Protein [Mass/Vol] 6.7 g/dL Normal 6.3-8.0 [facility] Comment on above: Order Comment: Speci men Type: BLOOD SPECIMENOrdering Facility: [facility] Address: [address] [place] [address] Performed By: #### 3 040-3, , ####[facility] LABORATORYCLIA [id number] [address] OF [facility] Sodium [Moles/Vol] 139 mmol/L Normal 136-144 [facility] Comment on above: Order Comment: Speci men Type: BLOOD SPECIMENOrdering Facility: [facility] Address: [address] [place] [address] Performed By: #### 3 040-3, 98812-1, ####[facility]ORATORYCLIA [id number] [address] OF [place] Urea nitrogen [Mass/Vol] 7 mg/dL Normal 7-21 [facility] Comment on above: Order Comment: Speci men Type: BLOOD SPECIMENOrdering Facility: [facility] Address: [address] [place] [address] Performed By: #### 3 040-3, 13929-9, ####[facility]ORATORYCLIA [id number] [address] ED NOTEon 05-31-2022 ED NOTE HNO ID: [id number] Author: Agueda Meng RN Service: Emergency Medicine Author Type: Registered Nurse Type: ED Notes Filed: 05/31/2022 2:42 PM Note Text: Pt alert and oriented x 4, speaking in full sentences with unlabored breathing. Pt verbalizes understanding of discharge paperwork. Pt ambulated from department without difficulty. Normal [facility] ED NOTE HNO ID: [id number] Author: Agueda Meng RN Service: Emergency Medicine [...] Is at bedside at this time. Normal [facility] ED NOTE HNO ID: [id number] Author: Agueda Meng RN Service: Emergency Medicine Author Type: Registered Nurse Type: ED Notes Filed: 05/31/2022 12:14 PM Note Text: POC BG 80 Normal [facility] ED NOTE HNO ID: [id number] Author: Agueda Meng RN Service: Emergency Medicine Author Type: Registered Nurse Type: ED Notes Filed: 05/31/2022 11:36 AM Note Text: Pt c/o weakness along with generalized illness symptoms. 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 Normal [facility] ED NOTE HNO ID: [id number] Author: Danuta Staley RN Service: ? Author Type: Registered Nurse Type: ED Notes Filed: 05/31/2022 11:04 AM Note Text: Bed: 46-ED Expected date: Expected time: Means of arrival: Comments: triage Normal [facility] ED PROV NOTEon 05-31-2022 ED PROV NOTE HNO ID: [id number] Author: Hiwot Hudson MD Service: Emergency Medicine [...] PM Hiwot Hudson MD 05/31/22 1548 Normal [facility] ED PROV NOTE HNO ID: [id number] Author: Hiwot Hudson MD Service: Emergency Medicine [...] Diagnosis Date Cognitive disorder IEP per the [facility] Psychologist [facility] Kidney stone Migraine [...] ED Course (more content not included)... Normal [facility] EKGon 05-31-2022 Electrocardiogram Ventricular Rate : 7 1 BPM Atrial Rate : 71 BPM P-R Interval : 118 ms QRS Duration : 84 ms Q-T Interval : 448 ms QTC Calculation(Bazett) : 486 ms Calculated P Whiteside : 23 degrees Calculated R Whiteside : 58 degrees Calculated T Whiteside : 27 degrees NORMAL SINUS RHYTHM NONSPECIFIC T WAVE ABNORMALITY PROLONGED QT ABNORMAL ECG NO PREVIOUS ECGS AVAILABLE Confirmed by KAUSHIK GUADALUPE MD ([id number]) on 06/04/2022 3:38:07 AM NAME : LUZ OLIVEIRA PID : [id number] : 2000 Gender : Female Race : ORD : Procedure Date : May 31 2022 13:06:20 Edit Date : Jun 04 2022 03:38:08 Diagnosis: NORMAL SINUS RHYTHM NONSPECIFIC T WAVE ABNORMALITY PROLONGED QT ABNORMAL ECG NO PREVIOUS ECGS AVAILABLE Confirmed by KAUSHIK GUADALUPE MD ([id number]) on 06/04/2022 3:38:07 AM Test Reason : Location : 4 : [place] Overread By : KAUSHIK GUADALPUE MD Edited By : KAUSHIK GUADALUPE MD Referred By : , Acquired by : FRIEDKIRTI Normal [facility] HCG Preg Ur Qlon 05-31-2022 HCG ( test) Ql (U) Negative Normal Negative [facility] Comment on above: Order Comment: Speci men Type: URINE SPECIMENOrdering Facility: [facility] Address: [address] [place], [place] [address] Result Comment: This test is intended to aid in the early detection of . Very dilute urine samples, as indicated by a low specific gravity, may not contain field sales representative levels of hCG. This test [...] for . Performed By: #### 2 106-3 ####[facility] LABORATORYCLIA [id number] [place] [address] [place] Lipase SerPl-cCncon 05-31-20 Lipase [Catalytic activity/Vol] 17 U/L Normal 16-61 [facility] Comment on above: Order Comment: Speci men Type: BLOOD SPECIMENOrdering Facility: [facility] Address: [address] [place] [address] Performed By: #### 3 040-3, 60979-6, 83035-4 ####[facility] LABORATORYCLIA [id number] [place] [address] [place] Magnesium SerPl-mCncon 05-31 Magnesium [Mass/Vol] 1.8 mg/dL Normal 1.7-2.3 [facility] Comment on above: Order Comment: Speci men Type: BLOOD SPECIMENOrdering Facility: [facility] Address: [address] [place] [address] Performed By: #### 3 040-3, 54179-6, 64143-9 ####[facility] LABORATORYCLIA [id number] [place] [address] [place] ROUTINE FLU A/B + RSVon 08- FLUAV RNA CHICHO+probe Ql (Unsp spec) Negative Normal Negative for Influenza A by RT-PCR [facility] Comment on above: Order Comment: Speci men Type: SWAB OF INTERNAL NOSEOrdering Facility: [facility] Address: [address] [place] [address] Performed By: #### R TFRSV, 91669-3 ####[facility] LABCLIA [id number] [address] [place] FLUBV RNA CHICHO+probe Ql (Unsp spec) Negative Normal Negative for Influenza B by RT-PCR [facility] Comment on above: Order Comment: Speci men Type: SWAB OF INTERNAL NOSEOrdering Facility: [facility] Address: [address] [place] [address] Performed By: #### R TFRSV, 20811-9 ####[facility] LABCLIA [id number] [place] [address] [place] RSV A RNA CHICHO+probe Ql (Unsp spec) Negative Normal Negative for Respiratory Syncytial Virus (RSV) by PCR [facility] Comment on above: Order Comment: Speci men Type: SWAB OF INTERNAL NOSEOrdering Facility: [facility] Address: [address] [place] [address] Performed By: #### R TFRSV, 27503-4 ####[facility] LABCLIA [id number] [place] [address] [place] SARS-CoV-2 RNA Resp Ql CHICHO+p robeon 05-31-2022 SARS-CoV-2 (COVID-19) RNA CHICHO+probe Ql (Resp) SARS-CoV-2 (Agent of COVID-19) Detected by RT-PCR or equivalent method. Abnormal Not Detected [facility] Comment on above: Order Comment: Speci men Type: SWAB OF INTERNAL NOSEOrdering Facility: [facility] Address: [address] [place] [address] Result Comment: This test was developed and its performance characteristics determined by [facility] [place]. This test has been authorized by FDA under an Emergency Use Authorization (EUA). This test has been validated in accordance with the FDA's Guidance Document Policy for Diagnostics Testing in Laboratories Certified to Perform High Complexity Testing under CLIA prior to Emergency use Authorization for Coronavirus Disease 2019 during the Public Health Emergency issued on December 09, 2019. Test performed by [facility], [facility] [place], [address] [place] [address]. Performed By: #### R [facility], 724[address]-9 ####[facility] LABCLIA [id number] [address] [place] Urinalysis complete panel (U )on 05-31-2022 Bilirubin Ql (U) Negative Normal Negative [facility] Comment on above: Order Comment: Speci men Type: URINE SPECIMENOrdering Facility: [facility] Address: [address] [place] [address] Performed By: #### 2 4356-8 ####[facility] LABORATORYCLIA [id number] [address] [place] Clarity (Unsp spec) Clear Normal Clear [facility] Comment on above: Order Comment: Speci men Type: URINE SPECIMENOrdering Facility: [facility] Address: [address] [place] [address] Performed By: #### 2 4356-8 ####[facility] LABORATORYCLIA [id number] [address] [place] Color (U) Colorless Normal yellow [facility] Comment on above: Order Comment: Speci men Type: URINE SPECIMENOrdering Facility: [facility] Address: [address] [place] [address] Performed By: #### 2 4356-8 ####[facility] LABORATORYCLIA [id number] [address] Glucose Test strip (U) [Mass/Vol] Negative Normal Negative [facility] Comment on above: Order Comment: Speci men Type: URINE SPECIMENOrdering Facility: [facility] Address: [address] [place] [address] Performed By: #### 2 4356-8 ####[facility] LABORATORYCLIA [id number] [address] Hemoglobin Ql (U) Negative Normal Negative [facility] Comment on above: Order Comment: Speci men Type: URINE SPECIMENOrdering Facility: [facility] Address: [address] [place] [address] Performed By: #### 2 4356-8 ####[facility] LABORATORYCLIA [id number] [address] [place] Ketones Ql (U) 2+ Abnormal Negative [facility] Comment on above: Order Comment: Speci men Type: URINE SPECIMENOrdering Facility: [facility] Address: [address] [place] [address] Performed By: #### 2 4356-8 ####[facility]ATORYCLIA [id number] [address] Leukocyte esterase Test strip Ql (U) Negative Normal Negative [facility] Comment on above: Order Comment: Speci men Type: URINE SPECIMENOrdering Facility: [facility] Address: [address] [place] [address] Performed By: #### 2 4356-8 ####[facility] LABORATORYCLIA [id number] [place] [address] [place] Nitrite Ql (U) Negative Normal Negative [facility] Comment on above: Order Comment: Speci men Type: URINE SPECIMENOrdering Facility: [facility] Address: [address] [place] [address] Performed By: #### 2 4356-8 ####[facility] LABORATORYCLIA [id number] [address] STATES [facility] pH (U) 7.5 [pH] Normal 5.0-8.0 [facility] Comment on above: Order Comment: Speci men Type: URINE SPECIMENOrdering Facility: [facility] Address: [address] [place] [address] Performed By: #### 2 4356-8 ####[facility] LABORATORYCLIA [id number] [address] STATES [facility] Protein (U) [Mass/Vol] Negative Normal Negative [facility] Comment on above: Order Comment: Speci men Type: URINE SPECIMENOrdering Facility: [facility] Address: [address] [place] [address] Performed By: #### 2 4356-8 ####[facility] LABORATORYCLIA [id number] [address] [place] RBC LM.HPF (Urine sed) [#/Area] 0-3 /HPF Normal 0-3 /HPF [facility] Comment on above: Order Comment: Speci men Type: URINE SPECIMENOrdering Facility: [facility] Address: [address] [place] [address] Performed By: #### 2 4356-8 ####[facility] LABORATORYCLIA [id number] [address] Urobilinogen Ql (U) Normal Normal Negative [facility] Comment on above: Order Comment: Speci men Type: URINE SPECIMENOrdering Facility: [facility] Address: [address] [place] [address] Performed By: #### 2 4356-8 ####[facility] LABORATORYCLIA [id number] [address] [place] WBC LM.HPF (Urine sed) [#/Area] 0-5 /HPF Normal 0-5 /HPF [facility] Comment on above: Order Comment: Speci men Type: URINE SPECIMENOrdering Facility: [facility] Address: [address] [place] [address] Performed By: #### 2 4356-8 ####[facility] LABORATORYCLIA [id number] [address] Urinalysis complete pnl Uron 05-31-2022 Specific gravity (U) [Rel density] 1.005 Normal 1.005-1.030 [facility] Comment on above: Order Comment: Speci men Type: URINE SPECIMENOrdering Facility: [facility] Address: [address] [place] [address] Performed By: #### 2 4356-8 ####[facility] LABORATORYCLIA [id number] [address] Result Comment: If s pecific gravity is <1.005 then results may be falsely negative. Serum HCG is recommended. Performed By: #### 2 106-3 ####[facility] LABORATORYCLIA [id number] [address] ALLIED HEALTHon 12-31-2021 ALL[facility] HNO ID: [id number] Author: RT Tierney(R) Service: Radiology Author Type: Corporate Planning Manager Type: Allied Health Filed: 12/31/2021 7:25 PM [...] December 31, 2021 TIME: 7:20 PM Normal [facility] Bacteria Ur Culton 2 Bacteria identified Cx Nom (U) CULTURE, URINE: Three or more urogenital den organisms. No predominating uropathogen. Recollect if clinically indicated. Normal [facility] Comment on above: Performed By: #### 6 30-4 #### [facility] CLIA [id number] STATES OF [facility] CBC W Auto Differential pane l (Bld)on 12-31-2021 Basophils (Bld) [#/Vol] 10*3/uL Normal <0.11 [facility] Comment on above: Order Comment: Speci men Type: BLOOD SPECIMENOrdering Facility: [facility] Address: [address] [place] [address] [place] [address] Performed By: #### 5 7021-8 ####[facility] LABCLIA [id number] [address] STATES OF [facility] Basophils/100 WBC (Bld) 0.1 % Normal [facility] Comment on above: Order Comment: Speci men Type: BLOOD SPECIMENOrdering Facility: [facility] Address: [address] [place] [address] Performed By: #### 5 7021-8 ####[facility] LABCLIA [id number] [facility] [place] [address] [facility] Differential cell count method Nom (Bld) Auto Normal [facility] Comment on above: Order Comment: Speci men Type: BLOOD SPECIMENOrdering Facility: [facility] Address: [address] [place] [address] Performed By: #### 5 7021-8 ####[facility] LABCLIA [id number] [facility] [place] [address] [facility] Eosinophils (Bld) [#/Vol] 0.03 10*3/uL Normal <0.46 [facility] Comment on above: Order Comment: Speci men Type: BLOOD SPECIMENOrdering Facility: [facility] Address: [address] [place] [address] Performed By: #### 5 7021-8 ####[facility] LABCLIA [id number] [facility] [place], [facility]254 [facility] Eosinophils/100 WBC (Bld) 0.3 % Normal [facility] Comment on above: Order Comment: Speci men Type: BLOOD SPECIMENOrdering Facility: [facility] Address: [address] [place] [address] Performed By: #### 5 7021-8 ####[facility] LABCLIA [id number] [place] [address] [facility] [place] Erythrocyte distribution width (RBC) [Ratio] 12.0 % Normal 11.5-15.0 [facility] Comment on above: Order Comment: Speci men Type: BLOOD SPECIMENOrdering Facility: [facility] Address: [address] [place] [address] Performed By: #### 5 7021-8 ####[facility] LABCLIA [id number] [facility] [place] [address] [place] Hematocrit (Bld) [Volume fraction] 40.3 % Normal 36.0-46.0 [facility] Comment on above: Order Comment: Speci men Type: BLOOD SPECIMENOrdering Facility: [facility] Address: [address] [place] [address] Performed By: #### 5 7021-8 ####[facility] LABCLIA [id number] [facility] [place] [address] [place] Hemoglobin (Bld) [Mass/Vol] 13.8 g/dL Normal 11.5-15.5 [facility] Comment on above: Order Comment: Speci men Type: BLOOD SPECIMENOrdering Facility: [facility] Address: [address] [place] [address] Performed By: #### 5 7021-8 ####[facility] [employer] LABCLIA [id number] [facility] [place] [address] [place] Lymphocytes (Bld) [#/Vol] 1.98 10*3/uL Normal 1.00-4.00 [facility] Comment on above: Order Comment: Speci men Type: BLOOD SPECIMENOrdering Facility: [facility] Address: [address] [place] [address] Performed By: #### 5 7021-8 ####[facility] [employer] LABCLIA [id number] [place] [address] [place] Lymphocytes/100 WBC (Bld) 20.3 % Normal [facility] Comment on above: Order Comment: Speci men Type: BLOOD SPECIMENOrdering Facility: [facility] Address: [address] [place] [address] Performed By: #### 5 7021-8 ####[facility] [employer] LABCLIA [id number] [place] [address] [place] MCH (RBC) [Entitic mass] 30.7 pg Normal 26.0-34.0 [facility] Comment on above: Order Comment: Speci men Type: BLOOD SPECIMENOrdering Facility: [facility] Address: [address] [place] [address] Performed By: #### 5 7021-8 ####[facility] LABCLIA [id number] [facility] [place] [address] [place] MCHC (RBC) [Mass/Vol] 34.2 g/dL Normal 30.5-36.0 [facility] Comment on above: Order Comment: Speci men Type: BLOOD SPECIMENOrdering Facility: [facility] Address: [address] [place] [address] Performed By: #### 5 7021-8 ####[facility] LABCLIA [id number] [place] [address] [place] MCV (RBC) [Entitic vol] 89.6 fL Normal 80.0-100.0 [facility] Comment on above: Order Comment: Speci men Type: BLOOD SPECIMENOrdering Facility: [facility] Address: [address] [place] [address] Performed By: #### 5 7021-8 ####[facility] LABCLIA [id number] [facility] [place], [address] Monocytes (Bld) [#/Vol] 0.70 10*3/uL Normal <0.87 [facility] Comment on above: Order Comment: Speci men Type: BLOOD SPECIMENOrdering Facility: [facility] Address: [address] [place] [address] Performed By: #### 5 7021-8 ####[facility] LABCLIA [id number] [facility], [facility]254 [facility] Monocytes/100 WBC (Bld) 7.2 % Normal [facility] Comment on above: Order Comment: Speci men Type: BLOOD SPECIMENOrdering Facility: [facility] Address: [address] [place] [address] Performed By: #### 5 7021-8 ####[facility] LABCLIA [id number] [facility] [place] [address] [facility] [place] Neutrophils (Bld) [#/Vol] 7.02 10*3/uL Normal 1.45-7.50 [facility] Comment on above: Order Comment: Speci men Type: BLOOD SPECIMENOrdering Facility: [facility] Address: [address] [place] [address] Performed By: #### 5 7021-8 ####[facility] LABCLIA [id number] [place] [address] [place] Neutrophils/100 WBC (Bld) 72.1 % Normal [facility] Comment on above: Order Comment: Speci men Type: BLOOD SPECIMENOrdering Facility: [facility] Address: [address] [place] [address] Performed By: #### 5 7021-8 ####[facility] LABCLIA [id number] [place] [address] [place] Platelet mean volume (Bld) [Entitic vol] 9.7 fL Normal 9.0-12.7 [facility] Comment on above: Order Comment: Speci men Type: BLOOD SPECIMENOrdering Facility: [facility] Address: [address] [place] [address] Performed By: #### 5 7021-8 ####[facility] LABCLIA [id number] [place] [address] [place] Platelets (Bld) [#/Vol] 251 10*3/uL Normal 150-400 [facility] Comment on above: Order Comment: Speci men Type: BLOOD SPECIMENOrdering Facility: [facility] Address: [address] [place] [address] Performed By: #### 5 7021-8 ####[facility] LABCLIA [id number] [place] [address] [place] RBC (Bld) [#/Vol] 4.50 10*6/uL Normal 3.90-5.20 [facility] Comment on above: Order Comment: Speci men Type: BLOOD SPECIMENOrdering Facility: [facility] Address: [address] [place] [address] Performed By: #### 5 7021-8 ####[facility] LABCLIA [id number] [place] [address] [facility] WBC (Bld) [#/Vol] 9.74 10*3/uL Normal 3.70-11.00 [facility] Comment on above: Order Comment: Speci men Type: BLOOD SPECIMENOrdering Facility: [facility] Address: [address] [place], [place] [address] [id number] Performed By: #### 5 7021-8 ####[facility] LABCLIA [id number] [place] [address] [facility] [place] CT ABD/PEL W IVCONon [...] Tissues: No significant finding. Lower thorax: Unremarkable. Level Vial Inspector (topogram) images: No additional findings. IMPRESSION: No acute abnormality Atrophic left kidney with cortical scarring and suspected small nonobstructing calculi. Findings may be related to chronic reflux disease or infection Hepatic steatosis Investigator Vice: CAROLA Transcribe Date/Time: Dec 31 2021 7:37P Dictated by : DIYA FUENTES MD This examination was interpreted and the report reviewed and electronically signed by: DIYA FUENTES MD on Dec 31 2021 7:42PM EST [id number] N Normal [facility] Comprehensive metabolic 2000 panelon 12-31-2021 Albumin [Mass/Vol] 4.0 g/dL Normal 3.4-5.0 [facility] Comment on above: Order Comment: Speci men Type: BLOOD SPECIMENOrdering Facility: [facility] Address: [address] [place] [address] Performed By: #### 2 4323-8, ####[employer] [facility] [employer] LABCLIA [id number] [place] [address] [place] ALP [Catalytic activity/Vol] 74 U/L Normal 46-116 [facility] Comment on above: Order Comment: Speci men Type: BLOOD SPECIMENOrdering Facility: [facility] Address: [address] [address] Performed By: #### 2 4323-8, ####[email or web address] LABCLIA [id number] [place] [address] [place] ALT With P-5'-P [Catalytic activity/Vol] 55 U/L Normal 12-78 [facility] Comment on above: Order Comment: Speci men Type: BLOOD SPECIMENOrdering Facility: [facility] Address: [address] [address] Performed By: #### 2 432-8, ####[facility] LABCLIA [id number] [place] [address] [place] Anion gap [Moles/Vol] 2 mmol/L Low 8-16 [facility] Comment on above: Order Comment: Speci men Type: BLOOD SPECIMENOrdering Facility: [facility] Address: [address] [place] [address] Performed By: #### 2 8, ####[facility] LABCLIA [id number] [place] [address] [place] AST With P-5'-P [Catalytic activity/Vol] 29 U/L Normal 15-46 [facility] Comment on above: Order Comment: Speci men Type: BLOOD SPECIMENOrdering Facility: [facility] Address: [address] [place] [address] Result Comment: Spec imen slightly hemolyzed. Performed By: #### 2 4323-05, ####[facility] LABCLIA [id number] [place] [address] [place] Bilirubin [Mass/Vol] 0.2 mg/dL Normal 0.2-1.0 [facility] Comment on above: Order Comment: Speci men Type: BLOOD SPECIMENOrdering Facility: [facility] Address: [address] [place], [place] [address] Performed By: #### 2 8, ####[facility] LABCLIA [id number] [place] [address] [place] Calcium [Mass/Vol] 9.1 mg/dL Normal 8.5-10.1 [facility] Comment on above: Order Comment: Speci men Type: BLOOD SPECIMENOrdering Facility: [facility] Address: [address] [place], [place] [address] Performed By: #### 2 4328, ####[facility] LABCLIA [id number] [place] [address] [place] Chloride [Moles/Vol] 100 mmol/L Normal 98-107 [facility] Comment on above: Order Comment: Speci men Type: BLOOD SPECIMENOrdering Facility: [facility] Address: [address] [place] [address] Performed By: #### 2 4323-8, ####[facility] LABCLIA [id number] [place] [address] [place] CO2 [Moles/Vol] 33 mmol/L High 21-32 [facility] Comment on above: Order Comment: Speci men Type: BLOOD SPECIMENOrdering Facility: [facility] Address: [address] [place] [address] Performed By: #### 2 4323-8, ####[facility] LABCLIA [id number] [place] [address] [place] [facility] Creatinine [Mass/Vol] 0.78 mg/dL Normal 0.51-0.95 [facility] Comment on above: Order Comment: Speci men Type: BLOOD SPECIMENOrdering Facility: [facility] Address: [address] [place] [address] Performed By: #### 2 4323-8, ####[facility] LABCLIA [id number] [place] [address] [facility] ESTIMATED GLOMERULAR FILTRATION RATE 110 mL/min/1.73m??? Normal >=60 [facility] Comment on above: Order Comment: Speci men Type: BLOOD SPECIMENOrdering Facility: [facility] Address: [address] [place] [address] Result Comment: Tierra mated Glomerular Filtration Rate [...] actual GFR. Performed By: #### 2 4323-8, ####[facility] [employer] LABCLIA [id number] [place] [address] [place] Glucose [Mass/Vol] 94 mg/dL Normal 70-99 [facility] Comment on above: Order Comment: Speci men Type: BLOOD SPECIMENOrdering Facility: [facility] Address: [address] [place] [address] Result Comment: The [place] Diabetes Association (ADA) provides guidance for cutoff [...] Standards of Medical Care in Diabetes 2016, [place] [employer] Association. Diabetes Care. 2016.39(Suppl 1). Performed By: #### 2 4323-8, 01209-8 ####[email or web address] [facility] [employer] LABCLIA [id number] [place] [address] [place] Potassium [Moles/Vol] 3.6 mmol/L Normal 3.5-5.1 [facility] Comment on above: Order Comment: Speci men Type: BLOOD SPECIMENOrdering Facility: [facility] Address: [address] [place] [address] Result Comment: Spec imen slightly hemolyzed. Performed By: #### 2 4323-8, ####[facility] [employer] LABCLIA [id number] [place] [address] [place] Protein [Mass/Vol] 7.7 g/dL Normal 6.4-8.2 [facility] Comment on above: Order Comment: Speci men Type: BLOOD SPECIMENOrdering Facility: [facility] Address: [address] [place] [address] Performed By: #### 2 4323-8, ####[facility] LABCLIA [id number] [facility] [place] [address] [place] Sodium [Moles/Vol] 135 mmol/L Low 136-145 [facility] Comment on above: Order Comment: Speci men Type: BLOOD SPECIMENOrdering Facility: [facility] Address: [address] [place], [place] [address] Performed By: #### 2 4323-8, ####[facility] LABCLIA [id number] [place] [address] [place] Urea nitrogen [Mass/Vol] 10 mg/dL Normal 7-18 [facility] Comment on above: Order Comment: Speci men Type: BLOOD SPECIMENOrdering Facility: [facility] Address: [address] [place] [address] Performed By: #### 2 4323-8, ####[facility] LABCLIA [id number] [place] [address] [facility] ED NOTEon 12-31-2021 ED NOTE HNO ID: [id number] Author: Amy Pena RN Service: Emergency Medicine Author Type: Registered Nurse Type: ED Notes Filed: 12/31/2021 7:03 PM Note Text: Patient resting in room. Patient updated on the plan of care. Bed in low locked position. Call light in reach. Monitoring maintained. Safety and comfort care maintained. Normal [facility] ED NOTE HNO ID: [id number] Author: Amy Pena RN Service: Emergency Medicine Author Type: Registered Nurse Type: ED Notes Filed: 12/31/2021 6:34 PM Note Text: Patient resting in room. Patient updated on the plan of care. Bed in low locked position. Call light in reach. Monitoring maintained. Safety and comfort care maintained. [facility] ED NOTE HNO ID: [id number] Author: Amy Pena RN Service: Emergency Medicine Author Type: Registered Nurse Type: ED Notes Filed: 12/31/2021 5:20 PM Note Text: Patient resting in room. Patient updated on the plan of care. Bed in low locked position. Call light in reach. Monitoring maintained. Safety and comfort care maintained. Normal [facility] ED NOTE HNO ID: [id number] Author: Amy Pena RN Service: Emergency Medicine Author Type: Registered Nurse Type: ED Notes Filed: 12/31/2021 4:55 PM Note Text: Patient updated on the plan of care. Patient medicated per order. Allergies reviewed. Patient verbalized understanding. 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 Emesis x 1 today. Normal BM today. Pt denies dysuria or hematuria. Hx of kidney stone and UTI Normal [facility] ED PROV NOTEon 12-31-2021 ED PROV NOTE HNO ID: [id number] Author: Mary Pereira DO Service: Emergency Medicine Author Type: Resident Type: ED Provider Notes Filed: 12/31/2021 8:03 PM Note Text: Attestation signed by Jayde Yeager MD at 12/31/2021 9:00 PM Attending Note I evaluated the patient and personally participated in the maritn components. I agree with the resident's findings [...] edema. Skin (more content not included)... Normal [facility] ED PROV NOTE HNO ID: [id number] Author: Jayde Yeager MD Service: Emergency Medicine [...] 4:28 PM Jayde Yeager MD 12/31/212020 Normal [facility] HCG Preg Ur Qlon 12-31-2021 HCG ( test) Ql (U) Negative Normal Negative [facility] Comment on above: Order Comment: Speci men Type: URINE SPECIMENOrdering Facility: [facility] Address: [address] [place] [address], [place] [address] Result Comment: This test is intended to aid in the early detection of . Very dilute urine samples, as indicated by a low specific gravity, may not contain field sales representative levels of hCG. This test [...] for . Performed By: #### 2 106-3 ####[facility] LABCLIA [id number] [place] [address] [place] Magnesium SerPl-mCncon 12-31 Magnesium [Mass/Vol] 1.9 mg/dL Normal 1.6-2.3 [facility] Comment on above: Order Comment: Speci men Type: BLOOD SPECIMENOrdering Facility: [facility] Address: [place] [address] Performed By: #### 2 4323-8, 52639-7 ####[facility] LABCLIA [id number] [place] [address] [place] US DOPPLER COMPLETEon [...] to body habitus. 4. No free fluid. Investigator Vice: PSCB Transcribe Date/Time: Dec 31 2021 6:24P Dictated by : KAITY SHAY MD This examination was interpreted and the report reviewed and electronically signed by: KAITY SHAY MD on Dec 31 2021 6:28PM EST [id number] N Normal [facility] US FEMALE PELVIS TRANSABD LT Don 12-31-2021 [...] to body habitus. 4. No free fluid. Investigator Vice: CAROLA Transcribe Date/Time: Dec 31 2021 6:24P Dictated by : KAITY SHAY MD This examination was interpreted and the report reviewed and electronically signed by: KAITY SHAY MD on Dec 31 2021 6:28PM EST [id number] N Normal [facility] US FEMALE PELVIS TRANSVAGon 12-31-2021 US FEMALE [...] to body habitus. 4. No free fluid. Investigator Vice: [facility] Transcribe Date/Time: Dec 31 2021 6:24P Dictated by : KAITY SHAY MD This examination was interpreted and the report reviewed and electronically signed by: KAITY SHAY MD on Dec 31 2021 6:28PM EST [id number] N Normal [facility] Urinalysis complete panel (U )on 12-31-2021 Bacteria LM.HPF (Urine sed) [#/Area] Many Abnormal None Seen [facility] Comment on above: Order Comment: Speci men Type: URINE SPECIMENOrdering Facility: [facility] Address: [address] [place] [address] Performed By: #### 2 4356-8 ####[facility] [employer] LABCLIA [id number] [address] STATES OF [facility] Bilirubin Ql (U) Negative Normal Negative [facility] Comment on above: Order Comment: Speci men Type: URINE SPECIMENOrdering Facility: [facility] Address: [address] [address] Performed By: #### 2 4356-8 ####[facility] LABCLIA [id number] [place] [id number] [place] Clarity (Unsp spec) Clear Normal Clear [facility] Comment on above: Order Comment: Speci men Type: URINE SPECIMENOrdering Facility: [facility] Address: [address] [place] [address] Performed By: #### 2 4356-8 ####[facility] LABCLIA [id number] [facility] [place] [address] [place] Color (U) Yellow Normal Yellow [facility] Comment on above: Order Comment: Speci men Type: URINE SPECIMENOrdering Facility: [facility] Address: [address] [place] [address] Performed By: #### 2 4356-8 ####[facility] LABCLIA [id number] [facility] [place] [address] [facility] Epithelial cells LM.HPF (Urine sed) [#/Area] Many Normal [facility] Comment on above: Order Comment: Speci men Type: URINE SPECIMENOrdering Facility: [facility] Address: [address] [place] [address] Performed By: #### 2 4356-8 ####[facility] LABCLIA [id number] [facility] [place] [address] [facility] Glucose Test strip (U) [Mass/Vol] Negative Normal Negative [facility] Comment on above: Order Comment: Speci men Type: URINE SPECIMENOrdering Facility: [facility] Address: [address] [place] [address] Performed By: #### 2 4356-8 ####[facility] LABCLIA [id number] [facility] [place] [address] [place] Hemoglobin Ql (U) 2+ Abnormal Negative [facility] Comment on above: Order Comment: Speci men Type: URINE SPECIMENOrdering Facility: [facility] Address: [address] [place] [address] Performed By: #### 2 4356-8 ####[facility] LABCLIA [id number] [facility] [place] [address] [place] Ketones Ql (U) Negative Normal Negative [facility] Comment on above: Order Comment: Speci men Type: URINE SPECIMENOrdering Facility: [facility] Address: [address] [place] [address] Performed By: #### 2 4356-8 ####[facility] LABCLIA [id number] [facility] [place] [address] [facility] [place] Leukocyte esterase Test strip Ql (U) Trace Abnormal Negative [facility] Comment on above: Order Comment: Speci men Type: URINE SPECIMENOrdering Facility: [facility] Address: [address] [place] [address] Performed By: #### 2 4356-8 ####[facility] LABCLIA [id number] [facility] [place] [address] [place] Nitrite Ql (U) Negative Normal Negative [facility] Comment on above: Order Comment: Speci men Type: URINE SPECIMENOrdering Facility: [facility] Address: [address] [place] [address] Performed By: #### 2 4356-8 ####[facility] LABCLIA [id number] [facility] [place] [address] [place] pH (U) 6.0 [pH] Normal 5.0-8.0 [facility] Comment on above: Order Comment: Speci men Type: URINE SPECIMENOrdering Facility: [facility] Address: [address] [place] [address] Performed By: #### 2 4356-8 ####[facility] LABCLIA [id number] [facility] [place] [address] [place] Protein (U) [Mass/Vol] Normal [facility] Comment on above: Order Comment: Speci men Type: URINE SPECIMENOrdering Facility: [facility] Address: [address] [place] [address] Result Comment: Visi ble blood causes falsely elevated results for analyte Protein. Due to this limitation, Protein will not be reported for patients whose urine contains visible blood. Performed By: #### 2 4356-8 ####[facility] LABCLIA [id number] [place] [address] [place] [facility] RBC LM.HPF (Urine sed) [#/Area] 11-25 /HPF Abnormal 0-3 /HPF [facility] Comment on above: Order Comment: Speci men Type: URINE SPECIMENOrdering Facility: [facility] Address: [address] [place] [address] Performed By: #### 2 4356-8 ####[facility] LABCLIA [id number] [place] [address] [facility] Specific gravity (U) [Rel density] >=1.030 High 1.005-1.030 [facility] Comment on above: Order Comment: Speci men Type: URINE SPECIMENOrdering Facility: [facility] Address: [address] [place] [address] Performed By: #### 2 4356-8 ####[facility] LABCLIA [id number] [address] Urobilinogen Ql (U) 0.2 EU/dL Normal 0.2-1.0 EU/dL [facility] Comment on above: Order Comment: Speci men Type: URINE SPECIMENOrdering Facility: [facility] Address: [address] [place] [address] Performed By: #### 2 4356-8 ####[facility] LABCLIA [id number] [place] [id number] [facility] WBC LM.HPF (Urine sed) [#/Area] 6-10 /HPF Abnormal 0-5 /HPF [facility] Comment on above: Order Comment: Speci men Type: URINE SPECIMENOrdering Facility: [facility] Address: [address] [place] [address] Performed By: #### 2 4356-8 ####[facility] LABCLIA [id number] [place] [address] [facility] COVID 19, [facility](RT COLLECT )on 03-17-2021 SARS-CoV-2 (COVID-19) RNA CHICHO+probe Ql (Unsp spec) Not detected Normal Not Detect [facility] Comment on above: Result Comment: Norm al Reference Range: Not Detected Method:(RT-PCR) real-time reverse transcriptase PCR Luminex Biographicon Instrument *The Food and Drug Administration (FDA) has issued an Emergency Use Authorization (EAU) for the Biographicon SARS-CoV-2 Assay for the rapid detection of [...] exposure. Performed By: #### L 3400.2405 #### [facility] [address] [place], [address] HAND RIGHT COMPLETEon 2020 HAND RIGHT COMPLETE EXAM: Right hand HISTORY: Pain after shutting a door on the hand on 01/27/2021. TECHNIQUE: 3 views of the right hand were obtained. FINDINGS: There is no evidence of fracture or dislocation. There are no suspicious bone lesions. Soft tissues are normal. IMPRESSION: No acute findings. Normal [facility] BASIC METABOLIC PANELon 01-0 Anion gap [Moles/Vol] 13 mmol/L Normal 10 - 20 [facility] Comment on above: Performed By: #### B MP #### [address] [address] Calcium [Mass/Vol] 9.5 mg/dL Normal 8.6 - 10.3 [facility] Comment on above: Performed By: #### B MP #### [address] [address] Chloride [Moles/Vol] 104 mmol/L Normal 98 - 107 [facility] Comment on above: Performed By: #### B MP #### [address] [address] Creatinine [Mass/Vol] 0.76 mg/dL Normal 0.50 - 1.05 [facility] Comment on above: Performed By: #### B MP #### [address] [address] GFR- AM. >60 Normal >60 [facility] Comment on above: Result Comment: CALC ULATIONS OF ESTIMATED GFR ARE PERFORMED USING THE MDRD STUDY EQUATION FOR THE IDMS-TRACEABLE CREATININE METHODS. CLIN CHEM 2007;53:766-72 Performed By: #### B MP #### [address] [address] GFR-NON AM. >60 Normal >60 [facility] Comment on above: Performed By: #### B MP #### [address] [address] Glucose [Mass/Vol] 88 mg/dL Normal 74 - 99 [facility] Comment on above: Performed By: #### B MP #### [address] [address] HCO3 (Bld) [Moles/Vol] 27 mmol/L Normal 21 - 32 [facility] Comment on above: Performed By: #### B MP #### [address] [address] Potassium [Moles/Vol] 3.8 mmol/L Normal 3.5 - 5.3 [facility] Comment on above: Performed By: #### B MP #### [address] [address] Sodium [Moles/Vol] 140 mmol/L Normal 136 - 145 [facility] Comment on above: Performed By: #### B MP #### [address] [address] Urea nitrogen [Mass/Vol] 11 mg/dL Normal 6 - 23 [facility] Comment on above: Performed By: #### B MP #### [address] [address] CBCon 10-17-2019 Erythrocyte distribution width (RBC) [Ratio] 12.5 % Normal 11.5 - 14.5 [facility] Comment on above: Performed By: #### C BC #### [address] [address] Hematocrit (Bld) [Volume fraction] 42.6 % Normal 36.0 - 46.0 [facility] Comment on above: Performed By: #### C BC #### [address] [address] Hemoglobin (Bld) [Mass/Vol] 14.5 g/dL Normal 12.0 - 16.0 [facility] Comment on above: Performed By: #### C BC #### [address] [address] MCHC (RBC) [Mass/Vol] 34.1 g/dL Normal 32.0 - 36.0 [facility] Comment on above: Performed By: #### C BC #### [address] [address] MCV (RBC) [Entitic vol] 91 fL Normal 80 - 100 [facility] Comment on above: Performed By: #### C BC #### [address] [address] Platelets (Bld) [#/Vol] 270 10*3/uL Normal 150 - 450 [facility] Comment on above: Performed By: #### C BC #### [address] [address] RBC (Bld) [#/Vol] 4.67 x10E12/L Normal 4.00 - 5.20 [facility] Comment on above: Performed By: #### C BC #### [address] [address] WBC (Bld) [#/Vol] 8.2 10*3/uL Normal 4.4 - 11.3 [facility] Comment on above: Performed By: #### C BC #### [address] [address] [address] HEAD WO CONTRASTon 2019 CT HEAD WO CONTRAST Patient Name: BIBI, LUZ STUDY: CT of the head without contrast INDICATION: dizzy/trauma COMPARISON: None ACCESSION NUMBER(S): [id number] ORDERING CLINICIAN: RASHMI FERRERA TECHNIQUE: A CT [...] Electronically signed by: LILI MONTEIRO MD Normal [facility] HCG,URINEon 10-17-2019 Beta HCG ( test) Ql (U) Negative Normal Negative [facility] Comment on above: Performed By: #### H U #### [place] [address] Provider Note - ED v2on Provider Note - ED v2 Provider Note - ED v2: Chart Review: ED NOTES ED NOTES: ====HPI==== 19 year old female comes to the ED with c/o a syncope episode TILLER MAN. Patient states she believes she has a [...] made to minimize errors. 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 Please call if questions. 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: Is : no(1) Is : no(1) RESULTS/VITAL [...] at 10/17/2019 01:39 Appearance, Urine CLEAR Specific Gilman, Urine 1.021 pH, Urine 7.0 Protein, Urine [...] SIGNS: T PRBP SpO2O2(LPM) %FiO2 Method 17-Oct-2019 01:27:[id number]/80 100 room air, no respiratory support 16-Oct-2019 22:16:[id number] /78 99 room air, no respiratory support 16-Oct-2019 22:00:[id number] /78 99 room air, no respiratory support [...] Referenced From Triage - ED 16-Oct-2019 22:16 [facility] Risk Screen - Adult Emergenc yon [...] an injured patient at a Trauma Center ([facility]/[place]/[facility]/[place]): no Electronic Signatures: Lisette Junior (RN) (Signed 16-Oct-2019 22:23) Authored: Preferred Language, Advanced Directives, Family Violence Adult, Learning Assessment (Patient), Learning Assessment (Other Learner), Pressure Injury/TB/Substance, CAGE Last Updated: 16-Oct-2019 22:23 by Lisette Junior (RN) [facility] Triage - EDon 10-17-2019 Triage - [...] BMI (kg/m2): 29.674 Calculated BSA (m2) 1.75 [place] Coma Scale: Best Eye Response: (E4) spontaneous Best Motor Response: (M6) obeys commands Best Verbal Response: (V5) oriented Amador Score: 15 Cough lasting greater than 3 weeks: no Patient immunocompromised related to: N/A Travel outside of [facility]: no Allergies: yes Last menstrual [...] and spouse/significant other Language: Spoken Language Preferred: Montserratian Reading Language Preferred: [place]ian 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 CELLS 1+ /HPF Normal [facility] Comment on above: Performed By: #### U AMIC #### [place] [address] TRANSITIONAL EPITH.CELLS Negative Normal [facility] Comment on above: Performed By: #### U AMIC #### [place] [address] WBC (Bld) [#/Vol] 5-20 Abnormal 0-5 [facility] Comment on above: Performed By: #### U AMIC #### [place] [address] URINALYSISon 10-17-2019 Appearance (U) CLEAR Normal CLEAR [facility] Comment on above: Result Comment: This is a corrected result. Previous value was HAZY, verified at 10/17/2019 01:39 Performed By: #### U A #### [address] [address] Color (U) YELLOW Normal STRAW,YELLOW [facility] Comment on above: Result Comment: This is a corrected result. Previous value was Red, verified at 10/17/2019 01:39 Performed By: #### U A #### [address] [address] Bilirubin (U) [Mass/Vol] Negative Normal NEGATIVE [facility] Comment on above: Performed By: #### U A #### [place] [id number] BLOOD SMALL(1+) Abnormal NEGATIVE [facility] Comment on above: Performed By: #### U A #### [place] [id number] Glucose [Mass/Vol] Negative Normal NEGATIVE [facility] Comment on above: Performed By: #### U A #### [place] [address] Ketones Ql (U) Negative Normal NEGATIVE [facility] Comment on above: Performed By: #### U A #### [place] [address] Leukocyte esterase Test strip Ql (U) TRACE Abnormal NEGATIVE [facility] Comment on above: Performed By: #### U A #### [address] [address] Nitrite Ql (U) Negative Normal NEGATIVE [facility] Comment on above: Performed By: #### U A #### [place] [id number] pH (Bld) 7.0 Normal 5.0 - 8.0 [facility] Comment on above: Performed By: #### U A #### [place] [address] Protein (U) [Mass/Vol] Negative Normal NEGATIVE [facility] Comment on above: Performed By: #### U A #### [place] [address] Specific gravity (U) [Rel density] 1.021 Normal 1.005 - 1.035 [facility] Comment on above: Performed By: #### U A #### [address] [address] Urobilinogen Qn (U) <2.0 Normal 0.0 - 1.9 [facility] Comment on above: Performed By: #### U A #### [address] [address] URINE CULTURE,BACTERIALon URINE CULTURE,BACTERIAL TEST URINE CULTURE,BACTERIAL WAS CANCELLED, 10/19/2019 16:21 PATIENT DISCHARGED. PATIENT: LUZ MTZ LOCATION: [facility]#: [id number] : 89 AGE: SEX: F ORDERED BY: RASHMI FERRERA SOURCE: URINE COLLECTED: 10/17/19 02:24 ANTIBIOTICS AT JAMIE.: RECEIVED : SITE: Clean Catch/Voided R E S U L T S URINE CULTURE,BACTERIAL CANCELLED 10/19/19 16:21 Normal [facility] Comment on above: Performed By: #### U [facility] #### [facility] [address] [place] [address] XR Foot 3+ Views Righton XR Foot 3+ Views Right Exam Date/Time: 04/28/2019 13:58 EDT Reason for Exam: Pain, Traumatic Report STUDY: XR Foot 3+ Views Right;; 04/28/2019 1:58 pm INDICATION: Pain, Traumatic. COMPARISON: None. ACCESSION NUMBER(S): 53 ORDERING CLINICIAN: Alex Grubbs FINDINGS: No acute fracture or malalignment. No radiopaque foreign body. IMPRESSION: No acute osseous abnormality FINAL REPORT Dictated: 04/28/2019 2:30 pm Nancy Mills MD Signed (Electronic Signature): 04/28/2019 2:30 pm Signed by: Nancy Mills MD Technologist: JOHNSON Normal [facility] ABO/Rh Echoon 12-25-2018 ABO/Rh E Interp... Positive [facility] Comment on above: Performed By: #### 2 947297 #### [facility] [address] [place] [address] BhCG Quanton 12-25-2018 Beta hCG Qnt <0.6 Normal 0.0-2.9 [facility] Comment on above: Performed By: #### 2 432060 #### [facility] [address] [place] [address] UA Completeon 12-25-2018 Color (U) Yellow Normal Yellow [facility] Comment on above: Performed By: #### 2 375891 #### [facility] [address] [place] [address] Glucose (U) [Mass/Vol] Negative Normal Negative [facility] Comment on above: Performed By: #### 2 937328 #### [facility] [place] [address] Ketones Ql (U) Negative Normal Negative [facility] Comment on above: Performed By: #### 2 727197 #### [facility] [address] [place] [address] RBC (U) [#/Vol] /uL Abnormal 0-3 [facility] Comment on above: Performed By: #### 2 968435 #### [facility] [address] [place] [address] UA Blood 3+ Normal Negative [facility] Comment on above: Performed By: #### 2 975138 #### [facility] [address] [place] [address] UA Bacteria Trace Abnormal None [facility] Comment on above: Performed By: #### 2 516031 #### [facility] [address] [place] [address] UA Clarity Clear Normal Clear [facility] Comment on above: Performed By: #### 2 866226 #### [facility] [address] [place] [address] UA Leuk Est Negative Normal Negative [facility] Comment on above: Performed By: #### 2 294618 #### [facility] [address] [place] [address] UA Mucous Trace Abnormal Trace [facility] Comment on above: Performed By: #### 2 139689 #### [facility] [address] [place] [address] UA Nitrite Negative Normal Negative [facility] Comment on above: Performed By: #### 2 144247 #### [facility] [address] [place] [address] UA pH 8.0 Normal 4.6-8.0 [facility] Comment on above: Performed By: #### 2 396430 #### [facility] [address] [place] [address] UA Protein Negative Normal Negative [facility] Comment on above: Performed By: #### 2 114962 #### [facility] [address] [place] [address] UA Spec Grav 1.012 Normal 1.003-1.030 [facility] Comment on above: Performed By: #### 2 761568 #### [facility] [address] [place] [address] UA Squam Epithelial 0-5 Normal 0-5 [facility] Comment on above: Performed By: #### 2 306052 #### [facility] [address] [place] [address] UA Urobilinogen Negative Normal [facility] Comment on above: Result Comment: Due to a manufacturing issue, low positive urobilinogen results may be fasely positive. Correlate with urine bilirubin and additional clinical/laboratory findings to assess the risk of hemolytic anemia or liver disease. If clinically indicated, repeat testing with an alternate method is available by contacting the laboratory within 24 hours. Performed By: #### 2 082143 #### [facility] [address] [place] [address] UA WBC 5-10 Abnormal 0-5 [facility] Comment on above: Performed By: #### 2 351408 #### [facility] [address] [place] [address] Urobilinogen Qn (U) Negative Normal Negative [facility] Comment on above: Performed By: #### 2 363054 #### [facility] [address] [place] [address] C Urineon 09-05-2018 C Urine Final Report: Light growth of Normal skin den isolated Normal [facility] Comment on above: Performed By: #### 2 765937 #### [facility] [address] [place] [address] .Manual Abson 09-03-2018 Basophil Abs Man 0.0 10x3/ Normal 0.0-0.2 [facility] Comment on above: Order Comment: Order Added by Discern Expert. Performed By: #### 3 [id number] #### [facility] [address] [place] [address] Eos Abs Man 0.0 10x3/ Normal 0.0-0.5 [facility] Comment on above: Order Comment: Order Added by Discern Expert. Performed By: #### 3 [id number] #### [facility] [address] [place] [address] Lymph Abs Man 0.5 10x3/ Low 1.2-3.4 [facility] Comment on above: Order Comment: Order Added by Discern Expert. Performed By: #### 3 [id number] #### [facility] [address] [place] [address] Lorain Abs Man 0.4 10x3/ Normal 0.0-0.7 [facility] Comment on above: Order Comment: Order Added by Discern Expert. Performed By: #### 3 [id number] #### [facility] [address] [place] [address] Segs Abs Man 7.8 10x3/ High 1.4-6.5 [facility] Comment on above: Order Comment: Order Added by Discern Expert. Performed By: #### 3 [id number] #### [facility] [address] [place] [id number] BMPon 09-03-2018 Anion gap [Moles/Vol] 14 mmol/L Normal 10-20 [facility] Comment on above: Performed By: #### 2 605066 #### [facility] [address] [place] [id number] Calcium [Mass/Vol] 8.8 mg/dL Normal 8.5-10.7 [facility] Comment on above: Performed By: #### 2 896494 #### [facility] [place] [address] Chloride [Moles/Vol] 102 mmol/L Normal 98-107 [facility] Comment on above: Performed By: #### 2 723316 #### [facility] [address] [place] [address] CO2 [Moles/Vol] 24.0 mmol/L Normal 21.0-32.0 [facility] Comment on above: Performed By: #### 2 613283 #### [facility] [address] [place] [address] Creatinine [Mass/Vol] 0.8 mg/dL Normal 0.5-1.1 [facility] Comment on above: Performed By: #### 2 757245 #### [facility] [address] [place] [address] Glucose [Mass/Vol] 100 mg/dL High 70-99 [facility] Comment on above: Performed By: #### 2 144454 #### [facility] [address] [place] [address] Potassium [Moles/Vol] 3.2 mmol/L Low 3.5-5.3 [facility] Comment on above: Performed By: #### 2 604095 #### [facility] [address] [place] [address] Sodium [Moles/Vol] 137 mmol/L Normal 136-145 [facility] Comment on above: Performed By: #### 2 805242 #### [facility] [address] [place] [address] Urea nitrogen [Mass/Vol] 11 mg/dL Normal 6-23 [facility] Comment on above: Performed By: #### 2 167017 #### [facility] [address] [place] [address] Urea nitrogen/Creatinine [Mass ratio] 13.8 ratio Normal 5.4-30.0 [facility] Comment on above: Performed By: #### 2 514769 #### [facility] [address] [place] [address] CBC w/ Auto Diffon 8 Erythrocyte distribution width (RBC) [Ratio] 13.0 % Normal 11.5-14.5 [facility] Comment on above: Performed By: #### 2 075359 #### [facility] [address] [place] [address] Hematocrit (Bld) [Volume fraction] 37.2 % Normal 36.0-48.0 [facility] Comment on above: Performed By: #### 2 146547 #### [facility] [address] [place] [address] Hemoglobin (Bld) [Mass/Vol] 12.7 g/dL Normal 12.0-16.0 [facility] Comment on above: Performed By: #### 2 694965 #### [facility] [address] [place] [address] MCH (RBC) [Entitic mass] 31.2 pg High 27.0-31.0 [facility] Comment on above: Performed By: #### 2 958103 #### [facility] [address] [place] [address] MCHC (RBC) [Mass/Vol] 34.2 g/dL Normal 33.0-37.0 [facility] Comment on above: Performed By: #### 2 470653 #### [facility] [address] [place] [address] MCV (RBC) [Entitic vol] 91.4 fL Normal 78.0-100.0 [facility] Comment on above: Performed By: #### 2 278765 #### [facility] [address] [place] [address] Platelet mean volume (Bld) [Entitic vol] 8.2 fL Normal 7.4-11.0 [facility] Comment on above: Performed By: #### 2 062407 #### [facility] [address] [place] [address] Platelets (Bld) [#/Vol] 201 E3/mcL Normal 130-400 [facility] Comment on above: Performed By: #### 2 167802 #### [facility] [address] [place] [address] RBC (Bld) [#/Vol] 4.07 E6/mcL Normal 3.90-5.40 [facility] Comment on above: Performed By: #### 2 853682 #### [facility] [address] [place] [address] WBC (Bld) [#/Vol] 8.9 E3/mcL Normal 3.6-11.0 [facility] Comment on above: Performed By: #### 2 138759 #### [facility] [address] [place] [address] CT Abdomen/Pelvis w/ Contras ton 09-03-2018 CT Abdomen/Pelvis w/ Contrast Exam Date/Time: 09/03/2018 21:35 EST Reason for Exam: Pain Report STUDY: CT Abdomen/Pelvis w/ Contrast; 09/03/2018 9:35 pm INDICATION: Pain. Pain COMPARISON: No comparison available ACCESSION NUMBER(S): [id number] ORDERING CLINICIAN: Miles Horn TECHNIQUE: CT of [...] Lobo MD Technologist: JOHN, Paul [facility] Hep Func Panelon 09-03-2018 Albumin [Mass/Vol] 4.3 g/dL Normal 3.4-5.0 [facility] Comment on above: Performed By: #### 2 537174 #### [place] [place] [address] [place] [address] Albumin/Globulin [Mass ratio] 1.7 {ratio} Normal 1.1-1.9 [facility] Comment on above: Performed By: #### 2 295353 #### [facility] [address] [place] [address] Alk Phos 59 Int._Unit/L Normal 33-139 [facility] Comment on above: Performed By: #### 2 409807 #### [facility] [address] [place] [address] ALT [Catalytic activity/Vol] 18 Int._Unit/L Normal 7-45 [facility] Comment on above: Performed By: #### 2 551294 #### [facility] [address] [place] [address] AST [Catalytic activity/Vol] 18 Int._Unit/L Normal 9-39 [facility] Comment on above: Performed By: #### 2 315827 #### [facility] [address] [place] [address] Bili Direct 0.16 mg/dL Normal 0.00-0.30 [facility] Comment on above: Performed By: #### 2 093529 #### [facility] [address] [place] [address] Bili Indirect 0.7 Normal [facility] Comment on above: Performed By: #### 2 726179 #### [facility] [address] [place] [address] Bili Total 0.9 mg/dL Normal 0.0-1.2 [facility] Comment on above: Performed By: #### 2 136171 #### [facility] [address] [place] [address] Globulin (S) [Mass/Vol] 3.0 g/dL Normal 2.0-4.0 [facility] Comment on above: Performed By: #### 2 096604 #### [place] [address] [place] [address] Protein [Mass/Vol] 6.8 g/dL Normal 6.4-8.2 [facility] Comment on above: Performed By: #### 2 903149 #### [facility] [address] [place] [address] Influenza A&B Agon 8 Influenzae A Ag Negative Normal Negative [facility] Comment on above: Performed By: #### 2 361759 #### [facility] [address] Influenzae B Ag Negative Normal Negative [facility] Comment on above: Performed By: #### 2 993917 #### [facility] [address] Lactic Acidon 09-03-2018 Lactate [Moles/Vol] 0.8 mmol/L Normal 0.4-2.0 [facility] Comment on above: Performed By: #### 2 506442 #### [facility] [address] Lipase Levelon 09-03-2018 Lipase Lvl 12 Int._Unit/L Normal 9-82 [facility] Comment on above: Performed By: #### 2 630221 #### [facility] [address] Manual Diffon 09-03-2018 Band form neutrophils/100 WBC (Bld) 1 Normal 0-1 [facility] Comment on above: Order Comment: Order Added by Discern Expert. Performed By: #### 2 120154 #### [facility] [address] [place] [address] Basophil Man 0 % Normal 0-1 [facility] Comment on above: Order Comment: Order Added by Discern Expert. Performed By: #### 2 325014 #### [facility] [address] [place] [address] Eosinophils/100 WBC (Bld) 0 % Normal 0-5 [facility] Comment on above: Order Comment: Order Added by Discern Expert. Performed By: #### 2 095649 #### [facility] [address] [place] [address] Lymphocytes/100 WBC (Bld) 6 % Low 14-48 [facility] Comment on above: Order Comment: Order Added by Discern Expert. Performed By: #### 2 152136 #### [facility] [address] [place] [address] Monocyte Man 5 % Normal 1-11 [facility] Comment on above: Order Comment: Order Added by Discern Expert. Performed By: #### 2 035092 #### [facility] [address] [place] [address] RBC morphology finding Nom (Bld) NORMAL Normal [facility] Comment on above: Order Comment: Order Added by Discern Expert. Performed By: #### 2 [id number] #### KOBY MckeonHemo [address] [place] [address] Segs Man 88 % High 37-75 [facility] Comment on above: Order Comment: Order Added by Discern Expert. Performed By: #### 2 [id number] #### KOBY MckeonHemo [address] [place] [address] TSHon 09-03-2018 TSH Qn 0.89 mcIU/mL Normal 0.30-5.60 [facility] Comment on above: Order Comment: With T4fr Reflex Performed By: #### 2 [id number] #### KOBY [employer]onChem [address] [place] [address] U BhCG Qlton 09-03-2018 HCG.beta subunit Qn Negative Normal Neg [facility] Comment on above: Performed By: #### 2 [id number] #### KOBY [employer] [address] [place] [address] UA Completeon 09-03-2018 Color (U) Yellow Normal Yellow [facility] Comment on above: Order Comment: Strai ght Cath as needed Performed By: #### 2 [id number] #### KOBY [employer] [address] [place] [address] Glucose (U) [Mass/Vol] Negative Normal Negative [facility] Comment on above: Order Comment: Strai ght Cath as needed Performed By: #### 2 [id number] #### KOBY [employer] [address] [place] [address] Ketones Ql (U) 1+ Abnormal Negative [facility] Comment on above: Order Comment: Strai ght Cath as needed Performed By: #### 2 [id number] #### KOBY [employer] [address] [place] [address] RBC (U) [#/Vol] 10-20 Abnormal 0-3 [facility] Comment on above: Order Comment: Strai ght Cath as needed Performed By: #### 2 [id number] #### KOBY [employer] [address] [place] [address] UA Blood 1+ Abnormal Negative [facility] Comment on above: Order Comment: Strai ght Cath as needed Performed By: #### 2 [id number] #### KOBY [employer] [address] [place] [address] UA Ascorbic Acid 40 mg/dL High <=19 [facility] Comment on above: Order Comment: Strai ght Cath as needed Performed By: #### 2 [id number] #### KOBY [employer] [address] [place] [address] UA Clarity SltCloudy Abnormal Clear [facility] Comment on above: Order Comment: Strai ght Cath as needed Performed By: #### 2 [id number] #### KOBY [employer] [address] [place] [address] UA Leuk Est 1+ Abnormal Negative [facility] Comment on above: Order Comment: Strai ght Cath as needed Performed By: #### 2 [id number] #### KOBY [employer] [address] [place] [address] UA Mucous Trace Abnormal Trace [facility] Comment on above: Order Comment: Strai ght Cath as needed Performed By: #### 2 [id number] #### KOBY [employer] [address] [place] [address] UA Nitrite Negative Normal Negative [facility] Comment on above: Order Comment: Strai ght Cath as needed Performed By: #### 2 [id number] #### KOBY [employer] [address] [place] [address] UA pH 7.0 Normal 4.6-8.0 [facility] Comment on above: Order Comment: Strai ght Cath as needed Performed By: #### 2 [id number] #### KOBY [employer] [address] [place] [address] UA Protein Negative Normal Negative [facility] Comment on above: Order Comment: Strai ght Cath as needed Performed By: #### 2 [id number] #### KOBY [employer] [address] [place] [address] UA Spec Grav 1.015 Normal 1.003-1.030 [facility] Comment on above: Order Comment: Strai ght Cath as needed Performed By: #### 2 [id number] #### KOB[employer] [address] [place] [address] UA Squam Epithelial 0-5 Normal 0-5 [facility] Comment on above: Order Comment: Strai ght Cath as needed Performed By: #### 2 [id number] #### KOB[employer] [address] [place] [address] UA Urobilinogen Negative Normal [facility] Comment on above: Order Comment: Strai [...] within 24 hours. Performed By: #### 2 [id number] #### KOB[facility] [employer] [address] [place] [address] UA WBC 20-50 Abnormal 0-5 [facility] Comment on above: Order Comment: Strai ght Cath as needed Performed By: #### 2 [id number] #### [employer]OB[employer] [address] [place] [address] Urobilinogen Qn (U) Negative Normal Negative [facility] Comment on above: Order Comment: Strai ght Cath as needed Performed By: #### 2 [id number] #### KOBY [employer] [address] [place] [address] eGFRon 09-03-2018 GFR/1.73 sq M predicted among non-blacks MDRD (S/P/Bld) [Vol rate/Area] mL/min/{1.73_m2} Normal [facility] Comment on above: Order Comment: Order added by Discern Expert. Performed By: #### 1 [id number] #### [employer]OB[facility] [employer] [address] [place] [address] zzplt morphon 09-03-2018 Platelet morphology finding Nom (Bld) NORMAL Normal [facility] Comment on above: Performed By: #### 9 [id number] #### KOBY RemHemo [address] [place] [address] Platelets (Bld) [#/Vol] NORMAL Normal [facility] Comment on above: Performed By: #### 9 [id number] #### KOBY RemHemo [address] [place] [address] Vital Signs Date Time Vital Sign Value Performing Clinician Facility 04-02-2023 16:00-0400 Body temperature 97.88 [degF] SUNIL GRAHAM MD [facility] 04-02-2023 16:00-0400 Diastolic Blood Pressure Non-Invasive 66 1 SUNIL GRAHAM MD [facility] 04-02-2023 16:00-0400 Heart rate 77 /min SUNIL GRAHAM MD [facility] 04-02-2023 16:00-0400 Respiratory rate 18 /min SUNIL GRAHAM MD [facility] 04-02-2023 16:00-0400 Systolic Blood Pressure Non-Invasive 110 1 SUNIL GRAHAM MD [facility] 04-02-2023 10:00-0400 Body temperature 97.7 [degF] SUNIL GRAHAM MD [facility] 04-02-2023 10:00-0400 Diastolic Blood Pressure Non-Invasive 48 1 SUNIL GRAHAM MD [facility] 04-02-2023 10:00-0400 Heart rate 81 /min SUNIL GRAHAM MD [facility] 04-02-2023 10:00-0400 Systolic Blood Pressure Non-Invasive 97 1 SUNIL GRAHAM MD [facility] 04-02-2023 00:31-0400 Body temperature 97.88 [degF] SUNIL GRAHAM MD [facility] 04-02-2023 00:31-0400 Diastolic Blood Pressure Non-Invasive 59 1 SUNIL GRAHAM MD [facility] 04-02-2023 00:31-0400 Heart rate 68 /min SUNIL GRAHAM MD [facility] 04-02-2023 00:31-0400 Reason For Taking VItal Signs SUNIL GRAHAM MD [facility] 04-02-2023 00:31-0400 Respiratory rate 16 /min SUNIL GRAHAM MD [facility] 04-02-2023 00:31-0400 Systolic Blood Pressure Non-Invasive 113 1 SUNIL GRAHAM MD [facility] 04-01-2023 16:20-0400 Reason For Taking VItal Signs SUNIL GRAHAM MD [facility] 04-01-2023 08:41-0400 Reason For Taking VItal Signs SUNIL GRAHAM MD [facility] 03-31-2023 23:30-0400 Body temperature 97.88 [degF] SUNIL GRAHAM MD [facility] 03-31-2023 15:25-0400 Body temperature 98.42 [degF] SUNIL GRAHAM MD [facility] 03-31-2023 08:36-0400 Body temperature 98.24 [degF] SUNIL GRAHAM MD [facility] 03-30-2023 07:49-0400 Body height 155 cm SUNIL GRAHAM MD [facility] 03-30-2023 07:49-0400 Body weight 78 kg SUNIL GRAHAM MD [facility] 03-30-2023 07:49-0400 Body weight 32.47 kg/m2 SUNIL GRAHAM MD [facility] 03-07-2023 20:03-0400 Body temperature 98.6 [degF] MARTINEZ NÚÑEZ MD [facility] 03-07-2023 20:03-0400 Diastolic Blood Pressure Non-Invasive 69 1 MARTINEZ NÚÑEZ MD [facility] 03-07-2023 20:03-0400 Heart rate 91 /min MARTINEZ NÚÑEZ MD [facility] 03-07-2023 20:03-0400 Respiratory rate 18 /min MARTINEZ NÚÑEZ MD [facility] 03-07-2023 20:03-0400 Systolic Blood Pressure Non-Invasive 115 1 MARTINEZ NÚÑEZ MD [facility] 03-07-2023 20:02-0400 Body height 155 cm MARTINEZ NÚÑEZ MD [facility] 03-07-2023 20:02-0400 Body weight 79.5 kg MARTINEZ NÚÑEZ MD [facility] 03-07-2023 20:02-0400 Body weight 33.09 kg/m2 MARTINEZ NÚÑEZ MD [facility] 03-06-2023 17:39-0400 Body temperature 98.06 [degF] MARTINEZ NÚÑEZ MD [facility] 03-06-2023 17:39-0400 Diastolic Blood Pressure Non-Invasive 76 1 MARTINEZ NÚÑEZ MD [facility] 03-06-2023 17:39-0400 Heart rate 125 /min MARTINEZ NÚÑEZ MD [facility] 03-06-2023 17:39-0400 Systolic Blood Pressure Non-Invasive 113 1 MARTINEZ NÚÑEZ MD [facility] 03-06-2023 17:37-0400 Body height 155 cm MARTINEZ NÚÑEZ MD [facility] 03-06-2023 17:37-0400 Body weight 79.5 kg MARTINEZ NÚÑEZ MD [facility] 03-06-2023 17:37-0400 Body weight 33.09 kg/m2 MARTINEZ NÚÑEZ MD [facility] 01-26-2023 03:20-0400 Diastolic Blood Pressure Non-Invasive 67 1 MARTINEZ NÚÑEZ MD [facility] 01-26-2023 03:20-0400 Heart rate 107 /min MARTINEZ NÚÑEZ MD [facility] 01-26-2023 03:20-0400 Systolic Blood Pressure Non-Invasive 113 1 MARTINEZ NÚÑEZ MD [facility] 01-26-2023 02:34-0400 Diastolic Blood Pressure Non-Invasive 71 1 MARTINEZ NÚÑEZ MD [facility] 01-26-2023 02:34-0400 Heart rate 95 /min MARTINEZ NÚÑEZ MD [facility] 01-26-2023 02:34-0400 Systolic Blood Pressure Non-Invasive 116 1 MARTINEZ NÚÑEZ MD [facility] 01-26-2023 02:15-0400 Body temperature 98.24 [degF] MARTINEZ NÚÑEZ MD [facility] 01-26-2023 01:46-0400 Diastolic Blood Pressure Non-Invasive 42 1 MARTINEZ NÚÑEZ MD [facility] 01-26-2023 01:46-0400 Heart rate 101 /min MARTINEZ NÚÑEZ MD [facility] 01-26-2023 01:46-0400 Systolic Blood Pressure Non-Invasive 114 1 MARTINEZ NÚÑEZ MD [facility] 01-26-2023 01:16-0400 Respiratory rate 16 /min MARTINEZ NÚÑEZ MD [facility] 01-26-2023 00:59-0400 Body height 155 cm MARTINEZ NÚÑEZ MD [facility] 01-26-2023 00:59-0400 Body weight 77.3 kg MARTINEZ NÚÑEZ MD [facility] 01-26-2023 00:59-0400 Body weight 32.17 kg/m2 MARTINEZ NÚÑEZ MD [facility] 11-18-2022 12:08-0500 Body temperature 98.24 [degF] SUNIL GRAHAM MD [facility] 11-18-2022 12:08-0500 Diastolic Blood Pressure Non-Invasive 82 1 SUNIL GRAHAM MD [facility] 11-18-2022 12:08-0500 Heart rate 108 /min SUNIL GRAHAM MD [facility] 11-18-2022 12:08-0500 Respiratory rate 18 /min SUNIL GRAHAM MD [facility] 11-18-2022 12:08-0500 Systolic Blood Pressure Non-Invasive 103 1 SUNIL GRAHAM MD [facility] 10-14-2022 11:01-0500 Body weight 80.06 kg Gretel Quintana MD Work Phone: [facility] 10-14-2022 11:01-0500 Diastolic blood pressure 56 mm[Hg] Gretel Quintana MD Work Phone: [facility] 10-14-2022 11:01-0500 Respiratory rate 18 /min Gretel Quintana MD Work Phone: [facility] 10-14-2022 11:01-0500 Systolic blood pressure 110 mm[Hg] Gretel Quintana MD Work Phone: [facility] 08-19-2022 13:06-0500 Body weight 85.5 kg Braulio Hollingsworth MD Work Phone: [facility] 08-19-2022 13:06-0500 Diastolic blood pressure 82 mm[Hg] Braulio Hollingsworth MD Work Phone: [facility] 08-19-2022 13:06-0500 Systolic blood pressure 102 mm[Hg] Braulio Hollingsworth MD Work Phone: [facility] 08-09-2022 18:09-0400 Diastolic blood pressure 74 mm[Hg] No Primary Care Physician [facility] Work Phone: 08-09-2022 18:09-0400 Heart rate 107 /min No Primary Care Physician [facility] Work Phone: 08-09-2022 18:09-0400 Respiratory rate 18 /min No Primary Care Physician [facility] Work Phone: 08-09-2022 18:09-0400 SaO2% (BldA) [Mass fraction] 94 % No Primary Care Physician [facility] Work Phone: 08-09-2022 18:09-0400 Systolic blood pressure 120 mm[Hg] No Primary Care Physician [facility] Work Phone: 08-09-2022 13:51-0400 Body height 154.94 cm No Primary Care Physician [facility] Work Phone: 08-09-2022 13:51-0400 Body mass index (BMI) [Ratio] 35.9 kg/m2 No Primary Care Physician [facility] Work Phone: 08-09-2022 13:51-0400 Body temperature 98.2 [degF] No Primary Care Physician [facility] Work Phone: 08-09-2022 13:51-0400 Body weight 86.4 kg No Primary Care Physician [facility] Work Phone: 08-04-2022 13:54-0400 Diastolic blood pressure 76 mm[Hg] Melania Mitchell MD Work Phone: [facility] 08-04-2022 13:54-0400 Heart rate 100 /min Melania Mitchell MD Work Phone: [facility] 08-04-2022 13:54-0400 Respiratory rate 16 /min Melania Mitchell MD Work Phone: [facility] 08-04-2022 13:54-0400 SaO2% (BldA) [Mass fraction] 98 % Melania Mitchell MD Work Phone: [facility] 08-04-2022 13:54-0400 Systolic blood pressure 102 mm[Hg] Melania Mitchell MD Work Phone: [facility] 08-04-2022 10:48-0400 Body height 154.9 cm Melania Mitchell MD Work Phone: [facility] 08-04-2022 10:48-0400 Body mass index (BMI) [Ratio] 30.23 kg/m2 Melania Mitchell MD Work Phone: [facility] 08-04-2022 10:48-0400 Body temperature 98.2 [degF] Melania Mitchell MD Work Phone: [facility] 08-04-2022 10:48-0400 Body weight 72.58 kg Melania Mitchell MD Work Phone: [facility] 07-08-2022 15:30-0400 Body temperature 98.2 [degF] No Primary Care Physician [facility] Work Phone: 07-08-2022 15:30-0400 Diastolic blood pressure 78 mm[Hg] No Primary Care Physician [facility] Work Phone: 07-08-2022 15:30-0400 Heart rate 89 /min No Primary Care Physician [facility] Work Phone: 07-08-2022 15:30-0400 Respiratory rate 14 /min No Primary Care Physician [facility] Work Phone: 07-08-2022 15:30-0400 SaO2% (BldA) [Mass fraction] 98 % No Primary Care Physician [facility] Work Phone: 07-08-2022 15:30-0400 Systolic blood pressure 124 mm[Hg] No Primary Care Physician [facility] Work Phone: 06-30-2022 00:36-0400 Diastolic blood pressure 76 mm[Hg] No Primary Care Physician [facility] Work Phone: 06-30-2022 00:36-0400 Heart rate 79 /min No Primary Care Physician [facility] Work Phone: 06-30-2022 00:36-0400 Respiratory rate 16 /min No Primary Care Physician [facility] Work Phone: 06-30-2022 00:36-0400 SaO2% (BldA) [Mass fraction] 96 % No Primary Care Physician [facility] Work Phone: 06-30-2022 00:36-0400 Systolic blood pressure 113 mm[Hg] No Primary Care Physician [facility] Work Phone: 06-29-2022 23:48-0400 Body temperature 98.9 [degF] No Primary Care Physician [facility] Work Phone: 06-29-2022 18:00-0400 Body mass index (BMI) [Ratio] 33 kg/m2 No Primary Care Physician [facility] Work Phone: 06-29-2022 18:00-0400 Body weight 79.37 kg No Primary Care Physician [facility] Work Phone: Encounters Encounter Date Encounter Type Care Provider Facility Start: 08-01-2025 ambulatory No Primary Care Physici an Facility:[facility] Start: 07-09-2025 End: 07-09-2025 ambulatory No Primary Care Physician Facility:[facility] Start: 07-09-2025 End: 07-09-2025 ambulatory No Primary Care Physician Facility:[facility] Start: 07-03-2025 End: 07-03-2025 ambulatory No Primary Care Physician Facility:[facility] Start: 07-03-2025 End: 07-03-2025 ambulatory No Primary Care Physician Facility:[facility] Start: 06-26-2025 End: 06-26-2025 ambulatory RAMA Dinesh [facility] Start: 06-20-2025 End: 06-20-2025 ambulatory [facility] Dinesh [facility] Start: 06-06-2025 End: 06-06-2025 ambulatory Rama Stuart Facility:[facility] Start: 05-30-2025 End: 05-30-2025 ambulatory No Primary Care Physician Facility:[facility] Start: 05-30-2025 End: 05-30-2025 ambulatory Rama Stuatr Facility:[facility] Start: 05-14-2025 End: 05-14-2025 ambulatory Rama Stuart Facility:[facility] Start: 05-14-2025 End: 05-14-2025 ambulatory No Primary Care Physician Facility:[facility] Start: 05-07-2025 End: 05-07-2025 ambulatory No Primary Care Physician Facility:[facility] Start: 05-07-2025 End: 05-07-2025 ambulatory No Primary Care Physician Facility:[facility] Start: 04-09-2025 End: 04-09-2025 ambulatory No Primary Care Physician Facility:[facility] Start: 04-09-2025 End: 04-09-2025 ambulatory Remedios Jose UTILITY TECHNICIAN Facility:[facility] Start: 03-15-2025 End: 03-15-2025 ambulatory Remedios Jose UTILITY TECHNICIAN Facility:[facility] Start: 03-13-2025 End: 03-13-2025 ambulatory No Primary Care Physician Facility:[facility] Start: 03-13-2025 End: 03-13-2025 ambulatory Remedios [place] UTILITY TECHNICIAN Facility:[facility] Start: 01-02-2025 End: 01-02-2025 Emergency department patient visit Mendez Gardner Facility:[facility] Start: 08-03-2024 End: 08-18-2024 ambulatory KIRSTEN MAST MARKETING PROGRAM MANAGER-TERMITE CONTROL SERVICER Facility:[facility] Start: 08-03-2024 End: 08-18-2024 Physical therapy management KIRSTEN MAST MARKETING PROGRAM MANAGER-TERMITE CONTROL SERVICER [facility] Start: 02-18-2024 End: 02-19-2024 ambulatory KIRSTEN MAST MARKETING PROGRAM MANAGER-TERMITE CONTROL SERVICER Facility:[facility] Start: 02-18-2024 End: 02-18-2024 Patient encounter procedure KIRSTEN MAST MARKETING PROGRAM MANAGER-TERMITE CONTROL SERVICER [facility] Start: 10-15-2023 End: 10-16-2023 ambulatory OSMAN TORRES PMHNP-BC Facility:[facility] Start: 10-15-2023 End: 10-15-2023 Patient encounter procedure OSMAN TORRES PMHNP-BC [facility] Start: 03-30-2023 End: 04-02-2023 Evaluation and management of inpatient MARTINEZ NÚÑEZ MD Facility:[facility] Start: 03-30-2023 End: 04-02-2023 Evaluation and management of inpatient SUNIL GRAHAM MD [facility] Start: 03-18-2023 End: 03-18-2023 ambulatory MARTINEZ NÚÑEZ MD Facility:[facility] Start: 03-15-2023 End: 03-16-2023 ambulatory SUNIL GRAHAM MD Facility:[facility] Start: 03-15-2023 End: 03-15-2023 Patient encounter procedure SUNIL GRAHAM MD [facility] Start: 03-09-2023 End: 03-14-2023 ambulatory LONG DICKERSON MD Facility:[facility] Start: 03-09-2023 End: 03-10-2023 ambulatory LONG DICKERSON MD Facility:[facility] Start: 03-09-2023 End: 03-13-2023 Outreach Lab LONG DICKERSON MD [facility] Start: 03-09-2023 End: 03-09-2023 Patient encounter procedure LONG DICKERSON MD [facility] Start: 03-07-2023 End: 03-07-2023 ambulatory MARTINEZ NÚÑEZ MD Facility:[facility] Start: 03-07-2023 End: 03-07-2023 SAME DAY STAY MARTINEZ NÚÑEZ MD [facility] Start: 03-06-2023 End: 03-06-2023 ambulatory MARTINEZ NÚÑEZ MD Facility:[facility] Start: 03-06-2023 End: 03-06-2023 SAME DAY STAY MARTINEZ NÚÑEZ MD [facility] Start: 01-26-2023 End: 01-26-2023 SAME DAY STAY MARTINEZ NÚÑEZ MD [facility] Start: 01-25-2023 End: 01-25-2023 Patient encounter procedure SUNIL GRAHAM MD [facility] Start: 01-19-2023 End: 01-19-2023 Patient encounter procedure SUNIL GRAHAM MD [facility] Start: 01-05-2023 End: 01-05-2023 Patient encounter procedure SUNIL GRAHAM MD [facility] Start: 12-03-2022 Refill Tad kirk DO Work Phone: [facility] Comment on above: Med Change Request Start: 11-18-2022 End: 11-18-2022 SAME DAY STAY SUNIL GRAHAM MD [facility] Start: 11-13-2022 End: 11-13-2022 Patient encounter procedure 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 MARKETING PROGRAM MANAGER-TERMITE CONTROL SERVICER [facility] Start: 10-29-2022 End: 10-29-2022 ambulatory CHEKO MCCLELLAND Facility:[facility] Start: 10-14-2022 End: 10-14-2022 ambulatory GRETEL QUINTANA Facility:[facility] Start: 10-14-2022 End: 10-14-2022 Patient encounter procedure Gretel Quintana MD Work Phone: Obstetrics/Gynecolog y Comment on above: Encounter for superv ision of normal first in second trimester (Primary Dx); Need for influenza vaccination; 15 weeks gestation of Start: 09-21-2022 End: 09-21-2022 ambulatory FLORENCE HEWITT Facility:[facility] Start: 09-17-2022 End: 09-17-2022 ambulatory BRAULIO HOLLINGSWORTH Facility:[facility] Start: 08-21-2022 ambulatory Braulio Hollingsworth MD Work Phone: Obstetrics/Gynecolog y Comment on above: Luz oliveira Start: 08-19-2022 End: 08-19-2022 ambulatory BRAULIO HOLLINGSWORTH Facility:[facility] Start: 08-19-2022 End: 08-19-2022 Patient encounter procedure Braulio Hollingsworth MD Work Phone: Obstetrics/Gynecolog y Comment on above: Encounter for superv ision of normal first in first trimester (Primary Dx) with uncer tain dates in first trimester (Primary Dx) Start: 08-14-2022 End: 08-14-2022 ambulatory TANESHA FRANKLINLex Facility:[facility] Start: 08-10-2022 Telephone encounter Braulio connolly MD Work Phone: Obstetrics/Gynecolog y Comment on above: Patient Update Start: 08-09-2022 End: 08-09-2022 Emergency department patient visit No Primary Care Physician [facility] Start: 08-04-2022 End: 08-04-2022 Emergency department patient visit [facility] Start: 08-04-2022 End: 08-04-2022 Emergency department patient visit Melania Mitchell MD Work Phone: [facility] Comment on above: Threatened miscarria ge in early (Primary Dx) Start: 07-20-2022 End: 07-20-2022 ambulatory No Primary Care Physician [facility] Work Phone: Start: 07-20-2022 End: 07-20-2022 Discharged Recurring No Primary Care Physician [facility] Start: 07-20-2022 Registered Recurring No Primary Care Physician [facility] Start: 07-09-2022 Telephone encounter Ledy wang MD Work Phone: [facility] Comment on above: Missed Appointment ( #1 No Show, #1 Letter) Start: 07-08-2022 End: 07-08-2022 Patient encounter procedure No Primary Care Physician [facility] Start: 06-29-2022 End: 06-30-2022 Emergency department patient visit No Primary Care Physician [facility] Start: 05-31-2022 End: 05-31-2022 Emergency department patient visit HIWOT HUDSON Facility:[facility] Start: 12-31-2021 End: 12-31-2021 Emergency department patient visit JAYDE YEAGER Facility:[facility] Start: 01-27-2021 End: 01-27-2021 ambulatory Alex [phone] Lynsey [phone] Facility:[facility] Start: 12-25-2018 Patient encounter procedure Facility:[id number] Start: [...] Speci men Type: BLOOD SPECIMEN Ordering Facility: [facility] Address: [address] [place], [place] [id number] Performed By: #### T SPN #### [facility] [facility] [id number] [address] [place] [address] [place] Start: 08-19-2022 Antibody [...] Speci men Type: BLOOD SPECIMEN Ordering Facility: [facility] Address: [place] [address] Performed By: #### T SPN #### [facility] CLIA [id number] [address] [place] [address] [place] Start: 08-09-2022 Transvaginal [...] of wisdom tooth (body structure) 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 MARKETING PROGRAM MANAGER-TERMITE CONTROL SERVICER Plan of Treatment Date Care Activity Detail Author Start: 08-19-2025 PAP TESTING PAP TESTING [facility] Start: 05-14-2024 PAP TESTING PAP TESTING [facility] Start: 08-19-2023 CHLAMYDIA SCREENING (18-24) CHLAMYDIA SCREENING (18-24) [facility] Start: 08-19-2023 GC (GONORRHEA) SCREE SAADIA (18-24) GC (GONORRHEA) SCREENING (18-24) [facility] Start: 10-14-2022 End: 10-14-2023 OBSTETRIC ULTRASOUND WHI OBSTETRIC ULTRASOUND WHI Anc Imaging Routine Encounter for supervision of normal first in second trimester Expected: 10/14/2022, Expires: 10/14/2023 [facility] Work Phone: Comment on above: Expected: 10/14/2022 , Expires: 10/14/2023 Start: 10-11-2022 DEPRESSION ASSESSMENT DEPRESSION ASS ESSMENT [facility] Start: 08-19-2022 End: 10-19-2022 Hepatitis B virus surface Ab [Presence] in Serum by Immunoassay [facility] Work Phone: Comment on above: Expected: 08/19/2022 , Expires: 10/19/2022 Start: 08-19-2022 End: 10-19-2022 Hepatitis C virus Ab [Presence] in Serum [facility] Work Phone: Comment on above: Expected: 08/19/2022 , Expires: 10/19/2022 Start: 08-19-2022 End: 10-19-2022 HIV 1+2 Ab [Presence] in Serum or Plasma by Immunoassay [facility] Work Phone: Comment on above: Expected: 08/19/2022 , Expires: 10/19/2022 Start: 08-19-2022 End: 08-19-2023 NUCHAL TRANSLUCENCY WHI NUCHAL TRANSLUCENCY WHI Anc Imaging Routine Encounter for supervision of normal first in first trimester Expected: 08/19/2022, Expires: 08/19/2023 [facility] Work Phone: Comment on above: Expected: 08/19/2022 , Expires: 08/19/2023 Start: 08-19-2022 End: 10-19-2022 RUBELLA IGG AB [facility] Work Phone: Comment on above: Expected: 08/19/2022 , Expires: 10/19/2022 Start: 08-19-2022 End: 10-19-2022 SYPHILIS TOTAL W/REFLEX [facility] Work Phone: Comment on above: Expected: 08/19/2022 , Expires: 10/19/2022 Start: 07-08-2022 Patient referral [facility] Work Phone: Start: 06-11-2022 Influenza vaccination INFLUENZA (#1) [facility] Start: 05-14-2022 CHLAMYDIA SCREENING (18-24) CHLAMYDIA SCREENING (18-24) [facility] Start: 05-14-2022 GC (GONORRHEA) SCRELily SAADIA (18-24) GC (GONORRHEA) SCREENING (18-24) [facility] Start: 05-11-2022 Influenza vaccination Flu vaccine (# 1) [facility] Start: 05-07-2022 Urine microalbumin profile DTAP,TDAP,TD (7 - Td or Tdap) [facility] Start: 10-11-2021 DEPRESSION ASSESSMENT DEPRESSION ASS ESSMENT [facility] Start: 05-17-2021 COVID-19 VACCINE (3 - Booster for Pfizer series) COVID-19 VACCINE (3 - Booster for Pfizer series) [facility] Start: 2020 Screening for malign ant neoplasm of cervix Pap smear [facility] Start: 2018 DTaP/Tdap/Td vaccine (1 - Tdap) DTaP/Tdap/Td vaccine (1 - Tdap) [facility] Start: 2017 HEPATITIS C SCREENING HEPATITIS C SC REENING [facility] Start: 2017 Hepatitis C screening Hepatitis C sc reen [facility] Start: 2017 HIV SCREENING HIV SCREENING [facility] Start: 2015 Screening for Chlamy jarod trachomatis Chlamydia/GC screen [facility] Start: 2014 HIV screening HIV screen [facility] Start: 2013 PEDS TO ADULT TRANSI TION ANNUAL ASSESSMENT PEDS TO ADULT TRANSITION ANNUAL ASSESSMENT [facility] Start: 2011 Depression Screen Depression Screen [facility] Start: 2011 PEDS TO ADULT TRANSI TION INITIAL DISCUSSION PEDS TO ADULT TRANSITION INITIAL DISCUSSION [facility] Start: 2010 HPV vaccine (1 - 2-d ose series) HPV vaccine (1 - 2-dose series) [facility] Start: 2009 MENINGOCOCCAL B: Consider based on risk (1 of 2 - Risk Bexsero 2-dose series) MENINGOCOCCAL B: Consider based on risk (1 of 2 - Risk Bexsero 2-dose series) [facility] Start: 2000 Varicella vaccine (1 of 2 - 2-dose childhood series) Varicella vaccine (1 of 2 - 2-dose childhood series) [facility] Start: 04-09-2000 COVID-19 VACCINE (#1) COVID-19 VACCI NE (#1) [facility] Bacteria identified in Urine by Culture URINE CULTURE Microbiology Routine Encounter for supervision of normal first in first trimester 08/19/2022 2:08 PM [facility] Work Phone: Chlamydia trachomatis+Neisseria gonorrhoeae DNA [Presence] in Unspecified specimen by CHICHO with probe detection GC/CHLAMYDIA DNA DET Lab Routine Encounter for supervision of normal first in first trimester 08/19/2022 2:13 PM [facility] Work Phone: PAP FLUID CERVICAL SCREENING PAP FLUID CERVICAL SCREENING Lab Routine Encounter for supervision of normal first in first trimester Ordered: 08/19/2022 [facility] Work Phone: Comment on above: Ordered: 08/19/2022 Patient Education [facility] Work Phone: Patient referral [facility] Work Phone: [facility] Immunizations Immunization Date Immunization Notes Care Provider Fa [facility] 08-24-2023 tetanus toxoid, redu ibis diphtheria toxoid, and acellular pertussis vaccine, adsorbed KIRSTEN MAST MARKETING PROGRAM MANAGER-TERMITE CONTROL SERVICER [facility] 02-01-2023 tetanus toxoid, redu ibis diphtheria toxoid, and acellular pertussis vaccine, adsorbed; Translations: [Boostrix (Tdap)] MARTINEZ NÚÑEZ MD [facility] Comment on above: Result Comment: [facility]- [phone] 10-14-2022 influenza virus vacc ine, unspecified formulation KIRSTEN MAST MARKETING PROGRAM MANAGER-TERMITE CONTROL SERVICER [facility] 10-14-2022 influenza, injectabl e, quadrivalent, contains preservative Gretel Quintana MD Work Phone: [facility] 03-22-2021 SARS-CoV-2 mRNA (tozinameran) vaccine [facility] MARKETING PROGRAM MANAGER-[facility] 03-01-2021 SARS-CoV-2 mRNA (tozinameran) vaccine [facility] MARKETING PROGRAM MANAGER-[facility] 09-20-2020 influenza virus vacc ine, unspecified formulation [facility] 09-08-2019 influenza virus vacc ine, unspecified formulation [facility] MARKETING PROGRAM MANAGER[facility] 03-02-2018 varicella virus vaccine [facility] MARKETING PROGRAM MANAGER-[facility] 07-26-2017 influenza virus vacc ine, unspecified formulation [facility] 05-11-2017 meningococcal polysaccharide (groups A, C, Y and W-135) diphtheria toxoid conjugate vaccine (MCV4P) [facility] 02-24-2016 meningococcal polysaccharide (groups A, C, Y and W-135) diphtheria toxoid conjugate vaccine (MCV4P) Ledy Vaughn MD Work Phone: [facility] 07-05-2014 influenza virus vacc ine, unspecified formulation [facility] MARKETING PROGRAM MANAGER-[facility] 07-05-2014 influenza, injectabl e, quadrivalent, preservative free Ledy Vaughn MD Work Phone: [facility] Work Phone: 02-20-2014 human papilloma viru s vaccine, quadrivalent Ledy Vaughn MD Work Phone: [facility] 02-20-2014 Human Papillomavirus Quadval KIRSTEN MAST MARKETING PROGRAM MANAGER-TERMITE CONTROL SERVICER [facility] [place] 05-18-2013 human papilloma viru s vaccine, quadrivalent Ledy Vaughn MD Work Phone: [facility] Work Phone: 05-07-2012 human papilloma viru s vaccine, quadrivalent Ledy Vaughn MD Work Phone: [facility] 05-07-2012 Meningococcal, MCV4, unspecified conjugate formulation(groups A, C, Y and W-135) Ledy Vaughn MD Work Phone: [facility] 05-07-2012 tetanus toxoid, redu ibis diphtheria toxoid, and acellular pertussis vaccine, adsorbed Ledy Vaughn MD Work Phone: [facility] 05-07-2012 varicella virus vaccine Chayo Harris MD Work Phone: [facility] 01-09-2005 diphtheria, tetanus toxoids and acellular pertussis vaccine Ledy Vaughn MD Work Phone: [facility] 01-09-2005 measles, mumps and rubella virus vaccine Ledy Vaughn MD Work Phone: [facility] 01-09-2005 poliovirus vaccine, inactivated Ledy Vaughn MD Work Phone: [facility] 04-26-2001 pneumococcal conjuga te vaccine, 7 valent Ledy Vaughn MD Work Phone: [facility] 02-17-2001 diphtheria, tetanus toxoids and acellular pertussis vaccine Ledy Vaughn MD Work Phone: [facility] Work Phone: 02-17-2001 haemophilus influenz ae type b vaccine, HbOC conjugate Ledy Vaughn MD Work Phone: [facility] Work Phone: 02-17-2001 pneumococcal conjuga te vaccine, 7 valent Ledy Vaughn MD Work Phone: [facility] 11-03-2000 measles, mumps and rubella virus vaccine Ledy Vaughn MD Work Phone: [facility] Work Phone: 11-03-2000 measles/mumps/rubell a virus vaccine KIRSTEN CISNEROS MARKETING PROGRAM MANAGER-TERMITE CONTROL SERVICER [facility] 11-03-2000 varicella virus vaccine Chayo Harris MD Work Phone: [facility] Work Phone: 05-05-2000 diphtheria, tetanus toxoids and acellular pertussis vaccine Ledy Vaughn MD Work Phone: [facility] Work Phone: 05-05-2000 haemophilus influenz ae type b vaccine, HbOC conjugate Ledy Vaughn MD Work Phone: [facility] Work Phone: 05-05-2000 hepatitis B vaccine, pediatric or pediatric/adolescent dosage Ledy Vaughn MD Work Phone: [facility] Work Phone: 05-05-2000 poliovirus vaccine, inactivated Ledy Vaughn MD Work Phone: [facility] Work Phone: 03-03-2000 diphtheria, tetanus toxoids and acellular pertussis vaccine Ledy Vaughn MD Work Phone: [facility] Work Phone: 03-03-2000 haemophilus influenz ae type b vaccine, HbOC conjugate Ledy Vaughn MD Work Phone: [facility] Work Phone: 03-03-2000 poliovirus vaccine, inactivated Ledy Vaughn MD Work Phone: [facility] Work Phone: 1999 diphtheria, tetanus toxoids and acellular pertussis vaccine Ledy Vaughn MD Work Phone: [facility] Work Phone: 1999 haemophilus influenz ae type b vaccine, HbOC conjugate Ledy Vaughn MD Work Phone: [facility] Work Phone: 1999 hepatitis B vaccine, pediatric or pediatric/adolescent dosage Ledy Vaughn MD Work Phone: [facility] Work Phone: 1999 poliovirus vaccine, inactivated Ledy Vaughn MD Work Phone: [facility] Work Phone: 1999 hepatitis B pediatri c vaccine KIRSTEN BLAYNE MARKETING PROGRAM MANAGER-TERMITE CONTROL SERVICER [facility] 1999 hepatitis B vaccine, pediatric or pediatric/adolescent dosage Ledy Vaughn MD Work Phone: [facility] Work Phone: Payers Date Payer Category Payer Self-pay [id number] 2025 Unknown [id number] 2023 Unknown [id number] 2021 Unknown [id number] 2021 Unknown [id number] 2021 Unknown [id number] 1999 Unknown [id number] 2.16. 840.1.228908.3.579.2.356 1999 Unknown [id number] 2.16. 840.1.970334.3.579.2.356 1999 Unknown [id number] 2.16.8 40.1.382117.3.579.2.419 1999 Unknown [id number] 2.16. 840.1.644955.3.579.2.668 1999 Unknown [id number] 2.16.8 40.1.388167.3.579.2.627 1999 Unknown [id number] 2.16.8 40.1.044571.3.579.2.627 1999 Unknown [id number] 2.16.8 40.1.042229.3.579.2.627 1999 Unknown [id number] 2.16.8 40.1.079917.3.579.2.627 1999 Unknown [id number] 2.16.8 40.1.235796.3.579.2.627 1999 Unknown [id number] 2.16.8 40.1.082962.3.579.2.627 1999 Unknown [id number] 2.16.8 40.1.201435.3.579.2.627 1999 Unknown [id number] 2.16.8 40.1.801460.3.579.2.627 1999 Unknown [id number] 2.16.8 40.1.982202.3.579.2.627 1999 Unknown [id number] 2.16.8 40.1.547441.3.579.2.627 1999 Unknown [id number] 2.16. 840.1.544755.3.579.2.479 1999 Unknown [id number] 2.16 840.1.311330.3.579.2479 1999 Unknown [id number] 2.16 840.1.125638.3.579.2479 Unknown [id number] Unknown [facility] [id number] Unknown [facility] [id number] Unknown [facility] [id number] Unknown [id number] 2.16.8 40.1.473307.3.579.2.462 Unknown [id number] 2.16.8 40.1.201904.3.579.2.462 Unknown [id number] 2.16.8 40.1.007933.3.579.2.462 Unknown [id number] 2.16.8 40.1.510255.3.579.2.462 Unknown [id number] 2.16.8 40.1.158834.3.579.2.462 Unknown [id number] 2.16.8 40.1.491293.3.579.2.462 Unknown [id number] 2.16.8 40.1.809422.3.579.2.462 Unknown [id number] 2.16.8 40.1.350122.3.579.2.462 Unknown [id number] 2.16.8 40.1.267568.3.579.2.462 Unknown [id number] 2.16.8 40.1.547866.3.579.2.462 Unknown [id number] 2.16.8 40.1.409962.3.579.2.462 Unknown [id number] 2.16.8 40.1.027342.3.579.2.462 Unknown [id number] 2.16.8 40.1.004405.3.579.2.462 Unknown [id number] 2.16.8 40.1.545537.3.579.2.462 Unknown [id number] 2.16.8 40.1.905786.3.579.2.462 Unknown [id number] 2.16.8 40.1.569873.3.579.2.462 Unknown [id number] 2.16.8 40.1.909940.3.579.2.462 Unknown [id number] 2.16.8 40.1.145227.3.579.2.462 Unknown [id number] 2.16.8 40.1.608164.3.579.2.462 Social History Date Type Detail Facility Start: 12-31-2021 End: 07-28-2024 Tobacco smoking status NHIS Never smoked tobacco [facility] Start: 12-31-2021 End: 08-19-2022 Tobacco use and exposure Smokeless tobacco non-user [facility] Start: 12-31-2021 End: 10-14-2022 Alcohol intake Ex-drinker (finding) [facility] Start: 06-27-2013 End: 08-19-2022 Tobacco Comment dad smokes outside [facility] Start: 2000 Sex Assigned At Female [facility] Start: 06-28-2022 End: 08-19-2022 Exposure to SARS-CoV-2 (event) Not sure [facility] Start: 2000 Sex Assigned At Not on file S [employer] Work Phone: Start: 08-09-2022 End: 08-09-2022 Tobacco smoking status NHIS Unknown if ever smoked [facility] Work Phone: Start: 10-24-2020 Spouse/ Signif icant Other [facility] Work Phone: Start: 07-12-2022 [facility] Goals Date Patient Goal Desired [...] bilat biceps and triceps [facility] [place] 04-02-2023 Functional Status Rooming in [facility] 04-01-2023 Functional Status [facility] 04-01-2023 Functional Status Independent [facility] 04-01-2023 Functional Status [facility] 03-30-2023 Functional Status Home independently [facility] 03-07-2023 Functional Status Ambulating in room [facility] Mental Status Date Assessment Result Facility 03-07-2023 Mental Status Orientation Oriented x 4 [facility] Clinical Notes 07-09-2022 to 02-18-2024 [...] 02/19/2024 1:39:46 AM Ordering Provider: KIRSTEN CISNEROS [facility] 10-15-2023 Evaluation + Plan note Diagnostic Tests PendingVitamin B12 Level 10/15/23Folate Level 10/15/23 Future Scheduled TestsGlucose Level 07/20/23Lipid Profile 07/20/23 [facility] 04-02-2023 Evaluation + Plan note Extrac barbara from: Title:Clinical Document Author:LONG DICKERSON MD Date:04/02/23 Subjective Comfortable with oral Motrin Lochia small. Baby is eating well per bottle Stayed overnight due to elevated bili levels in baby Objective Looks very well. Independent in room. Abdomen: Soft, uterus firm at U- 2 Extremities: Nontender with 1+ edema VITALS IdwnzpDvvbHKSbffjOTEoO8CNK6RhudVe(kg) 04/02 00:3136.6--552962--93/20 78.0 04/01 16:2036.5--7916---- 04/01 08:4136.1--8114---- 03/31 23:3036.6--8416---- [...] q6h, 03/30/23 19:48:00 EDT Problems (4) Anxiety ([id number]) Body mass index 30+ - obesity (424406940) (275885092) UTI (urinary tract infection) ([id number]) ASSESSMENT/PLAN: PPD #2 after . Doing very well. Home today. Extracted from: Title:Clinical Document Author:LONG DICKERSON MD Date:03/31/23 Subjective Comfortable with oral Motrin Lochia small. Baby is nursing well. . Objective Looks very well. Independent in room. CVS: RRR Lungs: CTA B Abdomen: Soft, uterus firm at U- 1 Extremities: Nontender with 1+ edema VITALS JchqikUpkjDNWysgzLWZkF2VIH3MvgrYp(kg) 03/31 08:3636.8--7816----03/30 78.0 03/31 05:4936--8216---- 03/31 02:00 RA 03/30 20:15----20539--RD 03/30 20:00----8018--RA 24 Hr Tmax: 36.8 at [...] q6h, 03/30/23 19:48:00 EDT Problems (4) Anxiety ([id number]) Body mass index 30+ - obesity (343991553) (909709885) UTI (urinary tract infection) ([id number]) ASSESSMENT/PLAN: PPD #1 after [employer] vacuum delivery [...] SYSTEMS: All negative ACTIVE PROBLEMS: (4) Anxiety ([id number]) Body mass index 30+ - obesity (585928004) (883907084) UTI (urinary tract infection) ([id number]) ALLERGIES: (1) CeleXA FAMILY HISTORY: No inheritable diseases. SOCIAL HISTORY: . Denies tobacco use Denies alcohol use. No illicit drug use. PHYSICAL EXAM: VITALS: KxnejzDruaQCEsqfzSTUpK3VVH6QemdLw(kg) 03/30 10:5735.6--7518----03/30 78.0 03/30 10:0535.9 03/30 09:0536.1 [...] Date:04/20/2023 02:00:00 PM Scheduled Provider:SUNIL GRAHAM MD [facility] 06-22-2023 Note day #2 progress note: [...] MARTINEZ NÚÑEZ MD on 04/01/2023 09:01 AM [facility] Hospital Discharge instructions Patient Education 03/31/2023 [...] work with your health care provider or spa consultant. If you are not : ?Avoid [...] about methods of control (contraception). Medicines Take fbup-aaf-yoajkcj and prescription medicines only as told by [...] 07/24/2008 Document Revised: 09/30/2018 Document Reviewed: 07/11/2018 Swrve Patient Education 2020 [employer]. 03/31/2023 12:34:52 7b- Depression and Blues (07/2020) [...] psychosis. Often, a screening tool called the [place] Depression Scale is used to diagnose depression [...] music. Avoid alcohol. Ask for help with back hand, cooking, grocery shopping, or running errands as needed. Do nottry to do everything. Talk to people close to you about how you are feeling. Get support from your partner, family members, and friends. Try to stay positive in how you think. Think about the things you are grateful for. Do not spend a lot of time alone. Only take ljrh-paj-wavscaa or prescription medicine as directed by your [...] well or get worse. Resource: [facility] Patient Information 2015 [facility] CenterEndavo [employer]. This information is not intended to replace advicegiven to you by your health care provider. Make sure you discuss any questions you have with your health care provider. Follow Up Care 03/30/2023 06:39:24 With:LONG DICKERSON Address: [address] [place] [address] [place] [address]- [phone] Business (1) When: Unknown [facility] 06-21-2023 Note Date of Service 03/31/23 Chief Complaint Subjective 22 yo [facility] Doing well. pain well [...] 1 herlinda, Perineum, AsDirected benzocaine topical 20% [place] 1 spray(s), Perineum, q1h bisacodyl 10 mg [...] SUNIL GRAHAM MD on 03/31/2023 11:37 AM [facility]2023 Anesthesiology Consult note Patient: LUZ OLIVEIRA Age: 22 years Sex: Female : 2000 Associated Diagnoses: None Author: JENNIFER MERA MARKETING PROGRAM MANAGER-MANGLE ROLLER Assessment Postanesthesia assessment Vitals: Vital signs from flowsheet : Vital Signs 03/31/2023 5:49 EDT Temperature Temporal Artery 36 DegC Heart Rate Monitored 82 bpm Respiratory Rate 16 br/min Systolic Blood Pressure Non-Invasive 109 mmHg Diastolic Blood Pressure Non-Invasive 54 mmHg [facility] 03/30/2023 20:15 EDT Heart Rate Monitored [...] mmHg Diastolic Blood Pressure Non-Invasive 94 mmHg [facility] 03/30/2023 18:56 EDT Heart Rate Monitored 98 [...] by JENNIFER MERA on 03/31/2023 06:15 AM [facility]23 Note Patient seen at 1730 and [...] LONG DICKERSON MD on 03/30/2023 05:30 PM [facility] Note Patient seen at 1730 and [...] LONG DICKERSON MD on 03/30/2023 05:30 PM [facility] Note Patient seen at 1730 and [...] LONG DICKERSON MD on 03/30/2023 05:30 PM [facility]23 Note CHIEF COMPLAINT: Membranes ruptured with [...] SYSTEMS: All negative ACTIVE PROBLEMS: (4) Anxiety ([id number]) Body mass index 30+ - obesity (753332222) (271498015) UTI (urinary tract infection) ([id number]) ALLERGIES: (1) CeleXA FAMILY HISTORY: No inheritable diseases. SOCIAL HISTORY: . Denies tobacco use Denies alcohol use. No illicit drug use. PHYSICAL EXAM: VITALS: TtikkyBheaSERonaxSVQpL0AHC9GztbXs(kg) 03/30 10:5735.6--7518----03/30 78.0 03/30 10:0535.9 03/30 09:0536.1 [...] LONG DICKERSON MD on 04/02/2023 11:08 AM [facility] Anesthesiology Consult note Patient: LUZ OLIVEIRA Age: 22 years Sex: Female : 2000 Associated Diagnoses: None Author: JENNIFER MERA MARKETING PROGRAM MANAGER-MANGLE ROLLER Preoperative Information laboring Anesthesia history Patient's history: [...] Problem list: Medical Anxiety / SNOMED CT [id number] / Confirmed Body mass index 30+ - obesity / SNOMED CT [id number] / Confirmed / SNOMED CT 578189872 / Confirmed UTI (urinary tract infection) / SNOMED CT [id number] / Confirmed, Active Problems (4) Anxiety Body mass index 30+ - obesity UTI (urinary tract infection) Histories Past Medical History: Active Anxiety ([id number]) UTI (urinary tract infection) ([id number]) Family History: Cancer Grandparent Comments: 10/22/2022 14:27 AUGIE Navarro Poonam Sanchez TIMBER MANAGEMENT SPECIALIST maternal, brain Cardiac pacemaker Mother Diabetes mellitus Mother Asthma Grandparent Breast cancer Grandparent Heart disease Mother HTN - Hypertension Father COPD Grandparent Diabetes Grandparent Procedure history: Boles tooth (98222218). Social History Social & Psychosocial Habits Alcohol [...] Signs(last 24 hrs) Last Charted Heart Rate Xxcgwjlzz50 bpm (MAR 30 10:57) Resp Rate 18 br/min (MAR 30 10:57) RHI177 mmHg (MAR 30 10:57) DBPL 59mmHg (MAR 30 10:57) BMI32.47 (MAR 30 07:49) Measurements from flowsheet : Measurements 03/30/2023 7:49 EDT Height 155.0 cm Admission Weight 78 kg [place] Body Weight 47.85 kg BSA Admission 1.77 [...] Height 155.0 cm Admission Weight 78 kg [place] Body Weight 47.85 kg BSA Admission 1.77 [...] Baby For Adoption No Surrogate No Discharge [place] Physician [facility] Participant No Safe Sleep Environment [...] Teaching Evaluation Refused information Preferred Written Language Montserratian Preferred Spoken Language Montserratian Chief Complaint SROM Mode of Arrival Ambulatory Information Given by Patient Patient's Current Physicians Dr [facility] Emergency Contact Number Luis Daniel Oliveira [phone] Belongings At Bedside Cell phone, Cashier And Waiter/Waitress Personal Home Medications Received No home medications [...] FHR Interpretation Category: Category One 03/30/2023 7:14 [facility] History and Physical History and Physical . Assessment and Plan [place] [employer] Anesthesiologists (ASA) physical status classification: Class II. Anesthetic Preoperative Plan Anesthetic technique: Epidural. Informed consent: signed by patient. Digitally Signed by JENNIFER MERA on 03/30/2023 01:37 PM [facility]06-20-2023 Note Date of Service 03/30/23 Chief Complaint SROM History of Present Illness 22 yo G1@39.2 presents with large gush of fluid around 0600 and regular contractions. c/bobesity and recent growth US AC 7%le overall 15%le. Noted blood tinged fluid. Growth at 37 weeks for obesity showed borderline low fluid 5 cm, growth in 15%le. 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 history: Menarche: Menses: Menopause: n/a HRT: n/a [...] of breast bx: no Colonoscopy: DXA: Family 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 history: Breast/colon/ovarian/uterine cancer: MGM w breast ca [...] infection) Historical No qualifying data Procedure/Surgical History Boles tooth Medications Home Medications (5) Active AD [...] SUNIL GRAHAM MD on 03/30/2023 07:30 AM [facility]05-28-2023 Hospital Discharge instructions Patient Education 03/07/2023 20:26:05 7 - Labor and Delivery Outpatient Instructions (CUSTOM) [facility] AND DELIVERY OUTPATIENT HOME-GOING INSTRUCTIONS _X_ [...] crackers, bananas, Jell-O, cooked carrots, applesauce. ___ Dickey diet. Avoid caffeine, chocolate, alcohol, spiced/greasy foods. [...] the nearest Emergency Room for assistance. Form [id number] D: 09/18 Document Released: 09/27/2006 Document Revised: 09/15/2012 Document Reviewed: 09/27/2006 ExitCare Patient Information 2012 [employer]. Follow Up Care 03/07/2023 19:56:20 With:WILTON AN, MARTINEZ Bautista Address: [address] [place] [address] [place] [address] [phone] When:03/09/2023 [facility] 05-27-2023 Hospital Discharge instructions Patient Education 03/06/2023 18:27:44 7 - Labor and Delivery Outpatient Instructions (CUSTOM) [facility] AND DELIVERY OUTPATIENT HOME-GOING INSTRUCTIONS _X_ [...] crackers, bananas, Jell-O, cooked carrots, applesauce. ___ Dickey diet. Avoid caffeine, chocolate, alcohol, spiced/greasy foods. [...] the nearest Emergency Room for assistance. Form [id number] D: 09/18 Document Released: 09/27/2006 Document Revised: 09/15/2012 Document Reviewed: 09/27/2006 ExitCare Patient Information 2011 [employer]. [facility] 04-18-2023 Hospital Discharge instructions Patient Education 01/26/2023 03:27:22 7 - Labor and Delivery Outpatient Instructions (CUSTOM) [facility] AND DELIVERY OUTPATIENT HOME-GOING INSTRUCTIONS _X_ [...] crackers, bananas, Jell-O, cooked carrots, applesauce. ___ Dickey diet. Avoid caffeine, chocolate, alcohol, spiced/greasy foods. [...] the nearest Emergency Room for assistance. Form [id number] D: 09/18 Document Released: 09/27/2006 Document Revised: 09/15/2012 Document Reviewed: 09/27/2006 ExitCare Patient Information 2012 [employer]. Follow Up Care 01/26/2023 00:53:10 With:Follow up with primary care provider Address:Unknown When: Unknown [facility] 02-25-2023 Miscellaneous Notes* Telephone Encounter - Alex Garcia DO - 12/05/2022 5:08 PM EST Not a CFM patient documented in this encounterThe [facility] Hospital Discharge instructions Patient Education [...] crackers, bananas, Jell-O, cooked carrots, applesauce. ___ Dickey diet. Avoid caffeine, chocolate, alcohol, spiced/greasy foods. [...] the nearest Emergency Room for assistance. Form [id number] D: 09/18 Document Released: 09/27/2006 Document Revised: 09/15/2012 Document Reviewed: 09/27/2006 ExitCare Patient Information 2012 [employer]. Follow Up Care 11/18/2022 11:50:05 With:SUNIL GRAHAM Address: [address] [place] [address] [place] [address] [phone] Business (1) When: Unknown [facility] 01-19-2023 NoteHNO ID: [id number] Author: Tad Shaw DO Service: Obstetrics Author [...] with plan. Tad Shaw DO 4:21 AM 10/29/2022[facility]01-19-2023 NoteHNO ID: [id number] Author: Tad Shaw DO Service: Obstetrics Author [...] intractable nausea/vomiting. She was sent her from [facility] Main ED. In the ED, [...] Diagnosis Date Cognitive disorder IEP per the [facility] Psych[facility] Kidney stone Migraine [...] October 29, 2022 TIME: 3:25 [facility]01-19-2023 NoteCOVID 19 RESULT: SARS-CoV-2 (Agent of COVID-19) Not Detected by RT-PCR or equivalent method. This test has been authorized by FDA under an Emergency Use Authorization (EUA). INFLUENZA A PCR: Negative for Influenza A by RT-PCR INFLUENZA B PCR: Negative for Influenza B by RT-PCR RSV PCR: Negative for Respiratory Syncytial Virus (RSV) by [facility] HospitalComment on above:Performed By: #### [id number] ####[facility] LABORATORYCLIA [id number] [place] [address] [place] [id number] Miscellaneous Notes* Quick Notes - Gretel Quintana [...] vaccine). Gretel Quintana MD documented in this encounterThe [facility]01-04-2023 Nurse Note* Aimee Desir Ma - 10/14/2022 11:01 AM EST Movement? Flutters Vaginal Bleeding: NO Vaginal fluid leakage of fluid: NO Contractions: no contractions documented in this encounterThe [facility]12-08-2022 NoteHNO ID: [id number] Author: Braulio Hollingsworth MD Service: ? Author Type: Physician Type: Progress Notes Filed: 09/17/2022 2:28 PM Note Text: Please refer to quick note and flow sheet. [facility]22 NoteHNO ID: [id number] Author: Braulio Hollingsworth MD Service: ? 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 loratadine (CLARITIN) 10 mg tablet Take 1 tablet by mouth once daily. fluticasone (FLONASE) 50 mcg/actuation nasal spray Use 1 Sheridan in each nostril once daily. No current [...] 4 weeks or sooner prn. Braulio Hollingsworth [facility]11-09-2022 NoteHNO ID: [id number] Author: Braulio Hollingsworth MD Service: ? Author Type: Physician Type: Progress Notes Filed: 08/19/2022 5:28 PM Note Text: OB point of care ultrasound was performed. See imaging tab for details. 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 No current [...] prn. Braulio Hollingsworth MD documented in this encounterThe [facility]11-09-2022 Instructions* Patient Instructions* Braulio Hollingsworth MD - 08/19/2022 1:48 PM EST Please select the following link to access the [facility] Your Guide to a Healthy . [email or web address] documented in this encounterThe [facility]11-09-2022 History of Present illness Narrative* Braulio Hollingsworth MD - 08/19/2022 1:41 PM EST OB point of care ultrasound was performed. See imaging tab for details. Braulio Hollingsworth MD documented in this encounterThe [facility]11-09-2022 Nurse Note* Jennifer Stevenson MA - 08/19/2022 1:07 PM EST Movement? Too early Vaginal Bleeding: YES/MD NOTIFIED-Has had for 2 weeks Vaginal fluid leakage of fluid: NO Contractions: no contractions documented in this encounterThe [facility] Of [facility]11-04-2022 NoteHNO ID: [id number] Author: Zuhair Condon DO Service: Obstetrics Author [...] 14, 2022 TIME: 9:44 PM PAGER/CONTACT #: [phone] NoteHNO ID: [id number] Author: Zuhair Condon DO Service: Obstetrics Author [...] Patient states that she originally went to [facility] ED on 08/09/22. 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 No [...] at time of discharge (more content not included)...[facility]10-[facility] Miscellaneous Notes* Telephone Encounter - Nisa Murphy - 08/10/2022 9:31 AM EDT Patient was in ED for bleeding. Not currently bleeding has new OB appointment 08/19. Please advise if you would like to see her sooner. documented in this encounterThe [facility]10-25-2022 Hospital Discharge instructions* Discharge Instructions* Melania Mitchell MD - 08/04/2022 1:22 PM EDT Please call your OB today to schedule a follow up visit in the next 2 days. * Attachments The following attachments cannot be sent through Care Everywhere. * Miscarriage: Threatened (Montserratian) documented in this encounterSUMMA Work Phone: [phone]) 412-679109-29-2022 Miscellaneous Notes* Telephone Encounter - Verónica Alegre [...] 09, 2022 12:24 PM documented in this encounterThe University Of [facility]edo Medical CenterEvaluation + Plan note Future Appointments Appointment Date:11/16/2022 02:00:00 PM Scheduled Provider:SUNIL GRAHAM MD Location:[facility] Appointment Type: OV OB Routine Follow Up [facility] Evaluation + Plan note Future Appointments Appointment Date:12/14/2022 02:15:00 PM Scheduled Provider:SUNIL GRAHAM MD Location:[facility] Appointment Type: OV OB Routine Follow Up Appointment Date:12/23/2022 08:30:00 AM Scheduled Provider: Location:[facility] Appointment Type:US OB > 14 wks Future Scheduled Tests Radiology* US OB Limited/Transvaginal 01/11/23 * US OB > 14 weeks 12/23/22 [facility] Evaluation + Plan note Future Appointments [...] Antibody 12/14/22 Radiology* US OB Limited/Transvaginal 01/11/23 [facility] Evaluation + Plan note Future Appointments Appointment Date:01/25/2023 01:00:00 PM Scheduled Provider:SUNIL GRAHAM MD Location:[facility] Appointment Type: OV OB Routine Follow Up [...] Antibody 12/14/22 Radiology* US OB Limited/Transvaginal 01/11/23 [facility] Evaluation + Plan note Future Appointments Appointment Date:02/01/2023 01:15:00 PM Scheduled Provider:SUNIL GRAHAM MD Location:[facility] Appointment Type:[facility] OB Routine Follow Up Appointment Date:03/15/2023 02:00:00 PM Scheduled Provider: Location:[facility] Appointment Type:US OB > 14 [...] * US OB > 14 weeks 03/15/23 [facility] Evaluation + Plan note Future Appointments Appointment Date:03/09/2023 01:45:00 PM Scheduled Provider:LONG DICKERSON MD Location:[facility] Appointment Type:[facility] OB Routine Follow Up Appointment Date:03/15/2023 02:00:00 PM Scheduled Provider: Location:[facility] Appointment Type:US OB > 14 [...] * US OB > 14 weeks 03/15/23 [facility] Evaluation + Plan note Future Appointments Appointment Date:03/15/2023 02:00:00 PM Scheduled Provider: Location:[facility] Appointment Type:US OB > 14 wks Appointment Date:03/16/2023 02:30:00 PM Scheduled Provider:LONG DICKERSON MD Location:[facility] Appointment Type:[facility] OB Routine Follow Up Diagnostic [...] * US OB > 14 weeks 03/15/23 [facility] Evaluation + Plan note Future Appointments Appointment Date:03/15/2023 02:00:00 PM Scheduled Provider: Location:[facility] Appointment Type:US OB > 14 wks Appointment Date:03/16/2023 02:30:00 PM Scheduled Provider:LONG DICKERSON MD Location:[facility] Appointment Type:[facility] OB Routine Follow Up Future [...] * US OB > 14 weeks 03/15/23 [facility] Evaluation + Plan note Future Appointments Appointment Date:03/16/2023 02:30:00 PM Scheduled Provider:LONG DICKERSON MD Location:[facility] Appointment Type: OV OB Routine Follow Up [...] Urine 01/25/23 Radiology* US OB Limited/Transvaginal 01/11/23 [facility] Evaluation + Plan note Future Appointments Appointment Date:07/28/2024 08:30:00 AM Scheduled Provider:KIRSTEN CISNEROS Location:[facility] Appointment Type:PC Wellness Annual Future Scheduled Tests Laboratory* Glucose Level 07/20/23 * Lipid Profile 07/20/23 [facility] Evaluation + Plan note Future Appointments Appointment Date:08/25/2024 07:30:00 AM Scheduled Provider:KIRSTEN CISNEROS Location:[facility] Appointment Type:PC OV Future Scheduled Tests Radiology* CT Head or Brain w/o Contrast 07/28/24 * CT Spine Cervical w/o Contrast 07/28/24 [facility] Evmpmbaghh note* Diagnosis Threatened miscarriage in early - Primary Threatened , unspecified as to episode of care documented in this encounter [facility] Work Phone: Evaluation note* Diagnosis Onset Date Resolution Status Acute lumbar myofascial strain acute Blunt abdominal trauma acute Cervical strain, acute acute Chest wall contusion acute Concussion without loss of consciousness acute Lumbar radiculopathy, acute acute [facility] Work Phone: Evaluation note* Diagnosis Encounter for supervision of normal first in first trimester- Primary Supervision of normal first documented in this encounter [facility] note* Diagnosis with uncertain dates in first trimester- Primary documented in this encounter [facility] note* Diagnosis Encounter for supervision of normal first in second trimester- Primary Supervision of normal first Need for influenza vaccination Need for prophylactic vaccination and inoculation against influenza 15 weeks gestation of state, incidental [facility] Narrative No data available for this section [facility] Hospital Discharge instructions Additional Instructions Follow-up with your FEEDER LOADER. Return if you have worsening symptoms or worsening abdominal pain/fever.[facility] Work Phone: Hospital Discharge instructions No data available for this section [facility] Progress note No data available for this section [facility] Reason for referral (narrative)* Diagnostic Procedure Only (Routine) - Pending Review Specialty Diagnoses / Procedures Referred By Contac t Referred To Contact [facility] Diagnoses Encounter for supervision of normal first in first trimester Procedures NUCHAL TRANSLUCENCY WHI US NUCHAL TRANSLUCENCY 1ST GESTATION Braulio Hollingsworth MD [address] [facility] [address] [place] [address] [facility] [address] [place] [address] Referral ID Status Reason Start Date Expiration Date Visits Requested Visits Authorized [id number] Pending Review Auto-Generat ed Referral 08/19/2022 08/19/2023 1 1 [facility] Diagnostic Procedure Only (Routine) - Authorized Specialty Diagnoses / Procedures Referred By Contac t Referred To Contact [facility] Diagnoses Encounter for supervision of normal first in second trimester Procedures OBSTETRIC ULTRASOUND WHI US PREG UTERUS AFTER 1ST TRIMEST GESTATION Gretel Quintana MD [address] [phone] [facility] [address] [email or web address] [address] Referral ID Status Reason Start Date Expiration Date Visits Requested Visits Authorized [id number] Authorized Auto-Generat ed Referral 10/14/2022 10/14/2023 1 1 [facility] Summary Purpose Family History No [...] Will No August 09 2:12pm Power of Marketer No August 09, 2022 2:12pm Advance Directive Response Recorded Date/ Time Advance Directives No June 7:50am Living Will No August 09 1:12pm Power of Marketer No August 09, 2022 1:12pm Chief Complaint [...] section and content) DATE CREATED AUTHOR 09/19/2018 [facility] DATE CREATED AUTHOR AUTHOR'S ORGANIZ ATION 12/26/2018 [facility] DATE CREATED AUTHOR AUTHOR'S ORGANIZ ATION 04/29/2019 [facility] DATE CREATED AUTHOR AUTHOR'S ORGANIZ ATION 12/25/2019 [facility] DATE CREATED AUTHOR AUTHOR'S ORGANIZ ATION 03/17/2021 [facility] DATE CREATED AUTHOR AUTHOR'S ORGANIZ ATION 08/29/2021 [facility] DATE CREATED AUTHOR AUTHOR'S ORGANIZ ATION 08/05/[address] [facility] DATE CREATED AUTHOR AUTHOR'S ORGANIZ ATION 11/13/2022 [facility] DATE CREATED AUTHOR AUTHOR'S ORGANIZ ATION 11/14/2022 [facility] DATE CREATED AUTHOR AUTHOR'S ORGANIZ ATION 02/20/2024 [facility] ([place]) DATE CREATED AUTHOR AUTHOR'S ORGANIZ ATION 08/20/2024 [facility] DATE CREATED AUTHOR AUTHOR'S ORGANIZ ATION 06/27/2025 [facility] DATE CREATED AUTHOR AUTHOR'S ORGANIZ ATION 07/27/2025 [facility] Source Comments (unrecognize d section and content) In the event this informatio n is protected by the Federal Confidentiality of Alcohol and Drug Abuse Patient Records regulations: The Federal rules restrict any use of the information to criminally investigate or prosecute any alcohol or drug abuse patient.[facility] CenterIn the event this information is protected by the Federal Confidentiality of Alcohol and Drug Abuse Patient Records regulations: The Federal rules restrict any use of the information to criminally investigate or prosecute any alcohol or drug abuse patient.[facility] CenterIn the event this information is protected by the Federal Confidentiality of Alcohol and Drug Abuse Patient Records regulations: The Federal rules restrict any use of the information to criminally investigate or prosecute any alcohol or drug abuse patient.[facility] CenterIn the event this information is protected by the Federal Confidentiality of Alcohol and Drug Abuse Patient Records regulations: The Federal rules restrict any use of the information to criminally investigate or prosecute any alcohol or drug abuse patient.[facility] CenterIn the event this information is protected by the Federal Confidentiality of Alcohol and Drug Abuse Patient Records regulations: The Federal rules restrict any use of the information to criminally investigate or prosecute any alcohol or drug abuse patient.[facility] CenterIn the event this information is protected by the Federal Confidentiality of Alcohol and Drug Abuse Patient Records regulations: The Federal rules restrict any use of the information to criminally investigate or prosecute any alcohol or drug abuse patient.[facility] CenterIn the event this information is protected by the Federal Confidentiality of Alcohol and Drug Abuse Patient Records regulations: The Federal rules restrict any use of the information to criminally investigate or prosecute any alcohol or drug abuse patient.[facility] Reason for Visit (unrecogniz ed [...] Role: Primary Care Physician Address: Address: [address] [place] [phone] Care Team Related Persons Name: RASHMI MTZ Address: Home [address] [place] [phone] [place] Name: MARGARITO TMZ Address: Home [address] [place] [address] [phone] [place] Name: MARGARITO MTZ Address: Home [address] [place] [phone] [place] Name: MARGARITO MTZ Address: Home [address] [place] [address] [phone] [place] Name: MARGARITO MTZ Address: Home [address] [place] [address] [phone] [place] Name: MARGARITO MTZ Address: Home [address] [place] [phone] [place] Name: MARGARITO MTZ Address: Home [address] [place] [address] [phone] [place] Name: MARGARITO MTZ Address: Home [address] [place] [phone] [place] Name: MARGARITO MTZ Address: Home [address] [place] [phone] [place] Care Team Personnel Name: MAXWELL GOMEZ MD Member Role: Primary Care Physician Address: Address: [address] [place], [place] [phone] Care Team Related Persons Name: RASHMI MTZ Address: Home [address] [place] [phone] [place] Name: MARGARITO MTZ Address: [address] [place], [place] [phone] [place] Name: MARGARITO MTZ Address: Home [address] [place], [place] [phone] [place] Name: MARGARITO MTZ Address: Home [address] [place] [phone] [place] Name: MARGARITO MTZ Address: Home [address] [place] [address] [phone] [place] Name: MARGARITO MTZ Address: Home [address] [place] [address] [phone] [place] Name: MARGARITO MTZ Address: Home [address] [place] [address] [phone] [place] Name: MARGARITO MTZ Address: Home [address] [place] [address] [phone] [place] Name: MARGARITO MTZ Address: Home [address] [place] [address] [phone] Patient Care team informatio n (unrecognized section and content) Care Team Personnel Name: MAXWELL GOMEZ MD Member Role: Primary Care Physician Address: Address: [address] [place], [place] [phone] [place] Care Team Related Persons Name: RASHMI MTZ Address: Home [address] [phone] [place] Name: MARGARITO MTZ Address: Home [address] [place] [phone] [place] Name: MARGARITO MTZ Address: Home [address] [place] [phone] [place] Name: MARGARITO MTZ Address: Home [address] [place] [phone] [place] Name: ELVIA MTZRI Address: Home [address] [place] [phone] [place] Name: MARGARITO MTZ Address: Home [address] [place], [place] [phone] [place] Name: MARGARITO MTZ Address: [address] [place], [place] [phone] [place] Name: MARGARITO MTZ Address: Home [address] [place], [place] [phone] [place] Name: MARGARITO MTZ Address: [address] [place], [place] [phone] [place] Care Team Personnel Name: MAXWELL GOMEZ MD Member Role: Primary Care Physician Address: Address: [address] [place] [phone] [place] Care Team Related Persons Name: RASHMI MTZ Address: Home [address] [phone] [place] Name: MARGARITO MTZ Address: [address] [place], [place] [phone] [place] Name: MARGARITO MTZ Address: [address] [place], [place] [phone] [place] Name: MARGARITO MTZ Address: [address] [place], [place] [phone] [place] Name: MARGARITO MTZ Address: [address] [place], [place] [phone] [place] Name: MARGARITO MTZ Address: [address] [place], [place] [phone] [place] Name: MARGARITO MTZ Address: [address] [place], [place] [phone] [place] Name: MARGARITO MTZ Address: [address] [place], [place] [phone] [place] Name: MARGARITO MTZ Address: Home [address], [place] [id number] [place] Care Team Personnel Name: SUNIL GRAHAM MD Position: P4 FEEDER LOADER Provider Member Role: Primary Care Physician Address: Address: [address] [place] [address] [facility] [place], [place] [address] Care Team Related Persons Name: RASHMI MTZ Address: Home [address] [phone] [place] Name: MARGARITO MTZ Address: [address], [place] [id number] [place] Name: MARGARITO MTZ Address: [address], [place] [id number] [place] Name: MARGARITO MTZ Address: [address], [place] [id number] [place] Name: ELVIA MTZRI Address: Home [address], [place] [id number] [place] Name: ELVIA MTZRI Address: Home [address], [place] [id number] [place] Name: ELVIA MTZRI Address: [address], [place] [id number] [place] Name: ELVIA MTZRI Address: [address], [place] [id number] [place] Name: ELVIA MTZRI Address: [address], [place] [id number] [place] Care Team Personnel Name: SUNIL GRAHAM MD Position: P4 FEEDER LOADER Provider Member Role: Primary Care Physician Address: Address: [address] [place] [address] Care Team Related Persons Name: RASHMI MTZ Address: Home [address] [phone] [place] Name: MARGARITO MTZ Address: [address], [place] [phone] [place] Name: ELVIA MTZRI Address: [address], [place] [id number] [place] Name: MARGARITO MTZ Address: [address], [place] [id number] [place] Name: ELVIA MTZRI Address: [address], [place] [id number] [place] Name: MARGARITO MTZ Address: [address], [place] [id number] [place] Name: MARGARITO MTZ Address: [address], [place] [id number] [place] Name: MARGARITO MTZ Address: [address], [place] [id number] [place] Name: MARGARITO MTZ Address: [address], [place] [phone] [place] Care Team Personnel Name: MARTINEZ NÚÑEZ MD Position: P4 FEEDER LOADER Provider Member Role: Primary Care Physician Address: Address: [address] [place] [address] Care Team Related Persons Name: RASHMI MTZ Address: Home [address] [phone] [place] Name: MARGARITO MTZ Address: [address], [place] [id number] [place] Name: MARGARITO MTZ Address: [address], [place] [id number] [place] Name: MARGARITO MTZ Address: [address], [place] [id number] [place] Name: MARGARITO MTZ Address: [address], [place] [id number] [place] Name: MARGARITO MTZ Address: [address], [place] [phone] [place] Name: MARGARITO MTZ Address: [address], [place] [phone] [place] Name: MARGARITO MTZ Address: Home [address] [place] [phone] [place] Name: MARGARITO MTZ Address: [address], [place] [phone] Care Team Personnel Name: MARTINEZ NÚÑEZ MD Position: P4 FEEDER LOADER Provider Member Role: Primary Care Physician Address: Address: [address] [place] [address] Care Team Related Persons Name: RASHMI MTZ Address: Home [address] [phone] [place] Name: MARGARITO MTZ Address: [address], [place] [phone] [place] Name: MARGARITO MTZ Address: [address], [place] [phone] [place] Name: MARGARITO MTZ Address: [address], [place] [id number] [place] Name: MARGARITO MTZ Address: [address], [place] [id number] [place] Name: MARGARITO MTZ Address: [address], [place] [id number] [place] Name: MARGARITO MTZ Address: [address], [place] [id number] [place] Name: MARGARITO MTZ Address: [address], [place] [phone] [place] Name: MARGARITO MTZ Address: [address], [place] [phone] [place] Care Team Personnel Name: MARTINEZ NÚÑEZ MD Position: P4 FEEDER LOADER Provider Member Role: Primary Care Physician Address: Address: [address] [place] [address] Care Team Related Persons Name: ARSHMI MTZ Address: Home [address] [phone] [place] Name: MARGARITO MTZ Address: [address], [place] [phone] [place] Name: MARGARITO MTZ Address: [address], [place] [id number] [place] Name: MARGARITO MTZ Address: [address], [place] [id number] [place] Name: MARGARITO MTZ Address: [address], [place] [id number] [place] Name: MARGARITO MTZ Address: [address], [place] [phone] [place] Name: MARGARITO MTZ Address: [address], [place] [id number] [place] Name: MARGARITO MTZ Address: [address], [place] [id number] [place] Name: MARGARITO MTZ Address: [address], [place] [id number] [place] Care Team Personnel Name: MARTINEZ NÚÑEZ MD Position: P4 FEEDER LOADER Provider Member Role: Primary Care Physician Address: Address: [address] [place] [address]- Care Team Related Persons Name: RASHMI MTZ Address: Home [address] [phone] [place] Name: MARGARITO MTZ Address: [address], [place] [id number] [place] Name: MARGARITO MTZ Address: [address], [place] [phone] [place] Name: MARGARITO MTZ Address: [address], [place] [phone] [place] Name: MARGARITO MTZ Address: [address], [place] [phone] [place] Name: MARGARITO MTZ Address: [address], [place] [phone] [place] Name: MARGARITO MTZ Address: [address], [place] [id number] [place] Name: MARGARITO MTZ Address: [address], [place] [phone] [place] Name: MARGARITO MTZ Address: [address], [place] [phone] [place] Care Team Personnel Name: MARTINEZ NÚÑEZ MD Position: P4 FEEDER LOADER Provider Member Role: Primary Care Physician Address: Address: [address] [place] [id number] [place] [address] Care Team Related Persons Name: RASHMI MTZ Address: Home [address] [phone] [place] Name: MARGARITO MTZ Address: [address], [place] [phone] [place] Name: MARGARITO MTZ Address: [address], [place] [id number] [place] Name: MARGARITO MTZ Address: [address], [place] [id number] [place] Name: MARGARITO MTZ Address: [address], [place] [phone] [place] Name: MARGARITO MTZ Address: [address], [place] [id number] [place] Name: MARGARITO MTZ Address: [address], [place] [phone] [place] Name: MARGARITO MTZ Address: [address], [place] [phone] [place] Name: MARGARITO MTZ Address: [address], [place] [phone] [place] Care Team Personnel Name: MARTINEZ NÚÑEZ MD Position: P4 FEEDER LOADER Provider Member Role: Primary Care Physician Address: Address: [address] [place] [address]- Care Team Related Persons Name: AMANDA OLIVEIRA Address: Home [address] [place] [phone] [place] Address: Temporary [address] [place], [place] [phone] Name: RASHMI MTZ Address: Home [address] [phone] [place] Name: MARGARITO MTZ Address: [address], [place] [phone] [place] Name: MARGARITO MTZ Address: [address], [place] [phone] [place] Name: MARGARITO MTZ Address: [address], [place] [id number] [place] Name: MARGARITO MTZ Address: [address], [place] [phone] [place] Name: MARGARITO MTZ Address: [address], [place] [phone] [place] Name: MARGRAITO MTZ Address: [address], [place] [id number] [place] Name: MARGARITO MTZ Address: [address], [place] [phone] [place] Name: MARGARITO MTZ Address: [address], [place] [phone] [place] Care Team Personnel Name: MARTINEZ NÚÑEZ MD Position: P4 FEEDER LOADER Provider Member Role: Primary Care Physician Address: Address: [address] [place] [address] [place], [place] [address] Care Team Related Persons Name: LUIS DANIEL OLIVEIRA Address: Home [address] [place], [place] [phone] Address: Temporary [address] [place], [place] [id number] Care Team Personnel Name: KIRSTEN CISNEROSTERMITE CONTROL SERVICER Position: P4 Advanced Senior Network Engineer Member Role: Primary Care Physician Address: Address: [address] [place] [address] Care Team Related Persons Name: LUIS DANIEL OLIVEIRA Address: Home [address] [place], [place] [phone] Address: Temporary [address] [place], [place] [phone] Care Team Personnel Name: KIRSTEN CISNEROS APRN-TERMITE CONTROL SERVICER Position: P4 Advanced Senior Network Engineer Member Role: Primary Care Physician Address: Address: [address] [place] [address]- Care Team Related Persons Name: LUIS DANIEL OLIVEIRA Address: Home [address] [place], [place] [phone] Address: Temporary [address] [place], [place] [phone] FOR RECORDS PERTAINING TO PATIENTS WHO ARE [...] BE BASED ON THE PRIMARY CLINICAL RECORDS. [facility] [employer] provides no warranty or guarantee of the accuracy or completeness of information in this document.
[2025-07-30 00:18] VITALS: BP 113/57; PULSE 92; PULSE 99; RESP 16; TEMP 37; O2SAT 99
[2025-07-30 00:32] VITALS: BP 99/57; PULSE 100
[2025-07-30 01:24] VITALS: BMI 35.7
[2025-07-30 01:32] LABS: ROM Internal Control Test YES-OK TO RESULT pt. (Internal QC); Record Kit Lot#, ROM+ K3607
[2025-07-30 01:33] LABS: ROM Patient Test Negative (Negative)
--- NOTE | 2025-07-30 13:42 | OB.TRI.HP_ITS ---
HPI - General HPI Narrative MANISH OLIVEIRA, is a 24 F who presents [ ] Maternal Data Information KIMO Calculator Estimated Delivery Date Method Current WG Current Estimate 11/09/25 LMP (Certain) 25w 3d Other Estimates 11/10/25 Ultrasound #1 25w 2d PFSH PFSH Medical History Fatty liver Renal atrophy, left Elevated liver enzymes Heart palpitations History of gestational hypertension Obesity affecting 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 ifdurt-aqiwwrd-brnto reflux Home Medications ?Medication ?Instructions ?Recorded ?Last Taken ?Type vdgxjqan-uqe-Jt-FA 1 mg 1 tab PO DAILY Unknown History tablet metoclopramide HCl 10 mg tablet 10 mg PO TID nausea #9 0 tabs 07/09/25 Unknown Rx (Reglan) Allergy/AdvReac Type Severity Reaction Status Date / Time escitalopram (From Lexapro) AdvReac Severe SUICIDAL Verified 07/30/25 13:41 citalopram hydrobromide AdvReac Other Verified 07/30/25 13:41 (From Celexa) Family History Grandmother Breast cancer Brain cancer Grandfather CVA (cerebral vascular accident) Mother Diabetes Heart failure MRSA carrier History of recurrent miscarriages Father Hypertension Surgical History [place] teeth removed Social History adopted: No household members: spouse and children housing: house number of children: 1 current occupation: [employer] current occupational exposures/hazards: No pets and animals: Yes (Not manage literbox) pets and animals: cat(s) history of recent travel: No sexually active: Yes Smoking Status: Never smoker second hand exposure: No ( quit vaping 2 months ago) alcohol intake: never substance use type: does not use well-balanced diet: rarely or never caffeine: Yes Type: carbonated beverages Number of servings: 1 eating out: 1-3 times/week during the past year weight has: increased > 10 lbs what type of physical activity do you participate in: walking frequency: 3-4 times per week duration: 15-30 minutes/day kalpana/druze: [employer] seatbelt use: always do you feel safe at home: Yes 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: : 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 Date Name GA/Weeks Outcome Route Bth Weight Gen Labor Lgth An esthesia Del Locatn Provider FOB 10/11/18 Chemical 4 spontaneous 03/30/23 Quyen 39 live - full term vacuum 6lbs 1oz Female epidural Starla Coe Delivery Date: 03/30/23 Last Updated by: Yasmin Newman RN Hyperemesis, Subchorionic hemorrhage, GHTN, SGA/IUGR Visit Details Expected Delivery Route/Plan Labor Preferences- CB/BF classes: [] labor support person: [] labor intervention preferences: [] pain management options preferred: [] cut cord/dad catch: [] : [] PP control planned: [] discussed possible routes of delivery and associated risks: [] special requests: [] Plans Covid status: [] Flu vaccine: [] Tdap vaccine: [] Rhogam: [] LARC form signed: [] Problem list reviewed and updated with the most current plan of care details and appropriate orders placed. Relevant counseling for the gestational age provided. Continue routine care and follow up unless otherwise noted in visit notes/problem list details OB Flowsheet Initial Weight: Not Recorded Date -?-?-?-?-?-?-?-?-?-?-?-?- EGA Weight BP Urine Prot -?-?-?-?-?-?-?-?-?-?-?-?- Glucose FHR FuHt Pres Dilation -?-?-?-?-?-?-?-?-?-?-?-?- Effaced St Visit Note 04/09/25 -?-?-?-?-?-?-?-?-?-?-?-?- 9w 3d 194 lb 8 oz 106/69 Nega tive -?-?-?-?-?-?-?-?-?-?-?-?- Negative 175 -?-?-?-?-?-?-?-?-?-?-?-?- SM- CRL 2.5 cm c ons with LMP 05/07/25 -?-?-?-?-?-?-?-?-?-?-?-?- 13w 3d 187 lb 4 oz 117/83 Trac e -?-?-?-?-?-?-?-?-?-?-?-?- Negative 166 -?-?-?-?-?-?-?-?-?-?-?-?- KW- no vb/crampi ng. getting headaches with dizziness and when episodes come they cause N/V. using reglan and magnesium. Uses Liquid IV and Gatorade. Is taking BPS with these episodes and reports elevated bps of 140/80. Cardiology consult 05/14/25 -?-?-?-?-?-?-?-?-?-?-?-?- 14w 3d 185 lb 1 oz 100/52 Trac e -?-?-?-?-?-?-?-?-?-?-?-?- Negative 162 -?-?-?-?-?-?-?--?-?-?-?-?- JV- pt was found to have fatty liver on us prior to . LFTs are coming down, plan to continue watching. 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 Will consult MFM as she may be at high risk for pre-e and further management is requested. Start baby asa. urine culture q trimester. 06/06/25 -?-?-?-?-?-?-?-?-?-?-?-?- 17w 5d 183 lb 5 oz 112/68 Nega tive -?-?-?-?-?-?-?-?-?-?-?-?- Negative 156 -?-?-?-?-?-?-?-?-?-?-?-?- JV- no lof, vagi nal bleeding, or dec fm. does have some cramping. urine culture negative. 07/03/25 -?-?-?-?-?-?-?-?-?-?-?-?- 21w 4d 185 lb 4 oz 109/74 Nega tive -?-?-?-?-?-?-?-?-?-?-?-?- Negative 158 -?-?-?-?-?-?-?-?-?-?-?-?- MH-No VB. Elvin Flowers Has open wound on abdomen with some drainage. Culture collected. Rx keflex. Headaches persist off and on. Can't use tylenol. Reglan not helpful. Rx phenergan. 07/09/25 -?-?-?-?-?-?-?-?-?-?-?-?- 22w 3d 184 lb 4 oz 107/76 Trac e -?-?-?-?-?-?-?-?-?-?-?-?- Negative 145 -?-?-?-?-?-?-?-?-?-?--?-?- SM- still having headaches intermittently. nl bp last night and today at home it was measuring higher this morning but now it is normal. she has not felt well for days. she feels dizzy and has been having headaches, reordered medications. reglan ordered. repeat labs today. Assessment & Plan (1) Second trimester : PLAN: Plan at 25 wks presents for triage after full medical evaluation & cleared in the ED for c/o SOB, coughing, difficulty breathing, rib pain. As pt was ready to be d/c from ED, they noted her bed/pants to be wet & requested she come to [facility] for evaluation of ROM. FHT: 140 Moderate variability reactive no decelerations. [place]: No Contractions, reports occasional mild cramping - not painful to nursing staff. Assessment and plan: Afebrile, MVSS, ROM testing negative, Reassuring EFM tracing/appropriate for gestational age. Enc'd rest, increased hydration. Reassuring maternal and status patient discharged to home to follow-up in office as scheduled or prn as needed. See problem list details for additional plan information. Charges/Coding Multi Select Codes Urinary/Genital Urinary/Genital CPT Codes: 72891-03 non-stress test Interp
== END 2025-07-30 02:00 | disposition home or self-care (01) ==
LOC: WPOUT 23:56 → WP 23:58
PROVIDERS: Emergency Medicine; Referring Provider Midwife; Visit Provider Midwife
DX: O99.891 Other specified diseases and conditions complicating pregnancy (principal); R06.02 Shortness of breath; R51.9 Headache, unspecified; Z3A.25 25 weeks gestation of pregnancy
CPT/HCPCS: 96374; 59050; 71275; 80048; 80076; 81001; 83690; 84112; 84484; 85025; 85379; 93005; 99221; Q9967; A4216; G0378; J2405

== ENCOUNTER → 2025-07-30 | Outpatient (CLI) | payer BC, SELFPAY ==
--- OUTSIDE RECORDS SUMMARY | 2025-07-30 17:59 | XMS RPT_ITS | CCD ---
Author Organization [facility] Care Team Providers Care Food Service Team Member Name Role Phone Lynsey [phone], Alex [phone] C onsulting Unavailable KWON DO, KAY K [...] MARTINEZ NÚÑEZ MD Primary Care Physician MAST SEC REPORTING CONSULTANT-HYDROGENATION OPERATOR, KIRSTEN Primary Care Physician WILTON AN, MARTINEZ Bautista Primary Care Unavailable LIVIER AN, SUNIL Admitting Unavailable JAYLA AN, LONG Attending Unavailable WILTON AN, MARTINEZ Bautista Attending Unavailable WILTON AN, MARTINEZ Bautista Primary Care Unavailable WILTON AN, MARTINEZ Bautista Attending Unavailable WILTON AN, MARTINEZ Bautista Primary Care Unavailable WILTON AN, MARTINEZ Bautista Attending Unavailable WILTON AN, MARTINEZ Bautista Primary Care Unavailable [facility] OSM[facility] Attending Unavailhieu NÚÑEZ MD, MARTINEZ Bautista Primary Care Unavailable MAST SEC REPORTING CONSULTANT-HYDROGENATION OPERATOR, KIRSTEN Attending Unavailabl e MAST SEC REPORTING CONSULTANT-HYDROGENATION OPERATOR, KIRSTEN Primary Care Unavailhieu e LIVIER AN, SUNIL Attending Unavailable WILTON AN, MARTINEZ Bautista Primary Care Unavailable JAYLA AN, LONG Attending Unavailable WILTON AN, MARTINEZ Bautista Primary Care Unavailable JAYLA AN, LONG Attending Unavailable WILTON AN, MARTINEZ Bautista Primary Care Unavailable MAST SEC REPORTING CONSULTANT-HYDROGENATION OPERATOR, KIRSTEN Attending Unavailabl e MAST SEC REPORTING CONSULTANT-HYDROGENATION OPERATOR, KIRSTEN Primary Care Unavailabl e RAMA AVALOS Referring Unavailab CARA Morrison Attending Unavailable NO PRIMARY CAREMD Primary Care Unavailable RAMA AVALOS Referring Unavailab CARA Morrison Attending Unavailable NO PRIMARY CAREMD Primary Care Unavailable RAMA AVALOS Referring Unavailab broderick EVANS PRIMARY CAREMD Primary Care Unavailable SAMANTA CARIAS Attending Unavailable Care Physician, No Primary Referring Unava ilable Care Physician, No Primary Primary Care Unava ilable [place] UND[employer]LECTRICIAN, Remedios Attending Unavailable [place] UNDERGROUND ELECTRICIAN, Remedios Attending Unavailable Care Physician, No Primary Primary Care Unava ilable Jose UNDERGROUND ELECTRICIAN, Remedios Referring Unavailable Jose UNDERGROUND ELECTRICIAN, Remedios Attending Unavailable Care Physician, No Primary Primary Care Unava ilable [place] UNDERGROUND ELECTRICIAN, Remedios Referring Unavailable Care Physician, No Primary Primary Care Unava ilable Care Physician, No Primary Referring Unava ilable Geraldine Bradford Attending Unavailable Care Physician, No Primary Primary Care Unava ilable Geraldine Bradford Referring Unavailable Geraldine Bradford Attending Unavailable Rama Stuart Referring Unavailhieu e Rama Stuart Attending Unavailabl e Care Physician, No Primary Primary Care Unava ilable Keven Alvarez Consulting Unavailable Care Physician, No Primary Primary Care Unava ilable Damari Mcdonough Attending Unavailable Damari Mcdonough Referring Unavailable Care Physician, No Primary Primary Care Unava ilable Geraldine Bradford Referring Unavailable Geraldine Bradford Attending Unavailable Mendez Gradner Attending Unavailable Care Physician, No Primary Primary Care Unava ilable Care Physician, No Primary Primary Care Unava ilable Lupe Mead Referring Unavailable Lupe Mead Attending Unavailable Jose UNDERGROUND ELECTRICIAN, Remedios Attending Unavailable Care Physician, No Primary Primary Care Unava ilable Care Physician, No Primary Referring Unava ilable Care Physician, No Primary Primary Care Unava ilable Jose UNDERGROUND ELECTRICIAN, Remedios Attending Unavailable [place] UNDERGROUND ELECTRICIAN, Remedios Referring Unavailable [place] UNDERGROUND ELECTRICIAN, Remedios Attending Unavailable Care Physician, No Primary Primary Care Unava ilable Care Physician, No Primary Primary Care Unava ilable Damari Mcdonough Attending Unavailable Care Physician, No Primary Primary Care Unava ilable Geraldine Bradford Attending Unavailable Care Physician, No Primary Referring Unava ilable Care Physician, No Primary Primary Care Unava ilable Damari Mcdonough Attending Unavailable Care Physician, No Primary Referring [...] Care Unava ilable Geraldine Bradford Attending Unavailable Allergies Allergy Classification Reported Allergen(s) Allergy Type Date of Onset Reaction(s) Facility (1 source) Escitalopram Drug Allergy [facility] Repository (11 sources) Citalopram; Translations: [CITALOPRAM HYDROBROMIDE] Drug Allergy 4 Other: See Comments [facility] Work Phone: (11 sources) Escitalopram; Translations: [ESCITALOPRAM] Drug Allergy 1 Other: See Comments [facility] Work Phone: (15 sources) Citalopram; Translations: [citalopram] Drug Allergy Suicidal ideation [facility] (1 source) Citalopram Drug Allergy 5 [facility] Repository (1 source) Escitalopram Drug Allergy 5 [facility] Repository Medications Current Medications Medication Drug Class(es) Dates Sig (Normalized) Sig (Original) acetaminophen 500 mg oral tablet (1 source) Start: 03-31-2023 End: 04-28-2023 Tylenol Extra Strength 500 mg oral tablet Dose : 500 mg = 1 tab(s), Oral, q4h, X 14 day(s), # 30 tab(s), 1 Refill(s), 04/28/23 11:38:00 EDT, Pharmacy: [facility]/pharmacy #[id number], 155, cm, 03/30/23 7:49:00 EDT, Height Start Date: 03/31/23 Stop Date: 04/28/23 Status: Ordered benzocaine 200 mg/ml topical spray (1 source) Standardized Chemical Allergen Start: 03-31-2023 End: 04-14-2023 apply 1 dose topically four times daily Americaine 20% topical spray Dose = 1 herlinda, Topical, QID, X 14 day(s), # 1 EA, 0 Refill(s), Pharmacy: [facility]/pharmacy #[id number], 155, cm, 03/30/23 7:49:00 EDT, Height [...] 0 Refill(s), 02/25/24 8:31:00 AM EDT, Pharmacy: [id number], 155, cm, 02/18/24 7:59:00 EDT, Height, kg, 02/18/24 7:59:00 EDT, Dosing Weight Start Date: 02/18/24 Stop Date: 02/25/24 Status: Ordered diclofenac sodium 75 mg delayed release oral tablet (1 source) Nonsteroidal Anti-inflammatory Drug Start: 02-18-2024 End: 03-03-2024 diclofenac sodium 75 mg oral delayed release tablet Dose : 75 mg = 1 tab(s), Oral, BID, # 28 tab(s), 0 Refill(s), Pharmacy: [id number], 155, cm, 02/18/24 7:59:00 EDT, [...] tab(s), 0 Refill(s), 04/14/23 11:38:00 EDT, Pharmacy: [facility]/pharmacy #[id number], 155, cm, 03/30/23 7:49:00 EDT, Height Start Date: 03/31/23 Stop Date: 04/14/23 Status: Ordered magnesium oxide 400 mg oral tablet (3 sources) Start: 01-11-2023 End: 02-10-2023 magnesium oxide 400 mg oral tablet Dose : 400 mg = 1 tab(s), Oral, qHS, X 30 day(s), # 30 tab(s), 0 Refill(s), 02/10/23 15:17:00 EDT, Pharmacy: [facility]/pharmacy #[id number], 155, cm, 01/11/23 15:08:00 EDT, Height [...] tylenol, # 12 tab(s), 0 Refill(s), Pharmacy: [facility]/pharmacy #[id number], 155, cm, 01/11/23 15:08:00 EDT, Height [...] Comment on above: Take 1 capsule by [facility] daily with breakfast. AD oral tablet (10 sources) Start: 01-26-2023 take 1 tablet by mouth once daily AD oral tablet Dose = 1 tab(s), Oral, Daily, # 30 tab(s), 0 Refill(s) Start Date: 01/26/23 Status: Ordered Ptuijdxv-Cza-Vd-Fa () 1 mg Tablet (2 sources) Start: 08-09-2022 take 1 tablet by mouth once daily Pjijcasy-Evv-Hi-Fa () 1 mg Tablet Active 1 TABLET PO DAILY August 08, 2022 11:00pm Start: 08-09-2022 take 1 tablet by brandee th once daily Yudfbmlw-Hxp-Jv-Fa () 1 mg Tablet Active 1 TABLET [...] qDay, # 30 tab(s), 11 Refill(s), Pharmacy: [facility]/pharmacy #[id number], Depression, major, recurrent, moderate, 154, cm, 07/20/23 7:49:00 EDT, Height, kg, 07/20/23 7:49:00 EDT, Dosing Weight Start Date: 08/16/23 Stop Date: 08/10/24 Status: Ordered Vitamin B2 100 mg oral tablet (8 sources) Start: 02-04-2023 take 1 tablet by mouth once daily Vitamin B2 100 mg oral tablet 1 tab(s), Oral, qDay, # 30 tab(s), 2 Refill(s), Pharmacy: [id number], 155, cm, 02/01/23 13:50:00 EDT, Height, kg, 01/26/23 0:59:00 EDT, Dosing Weight Start Date: 02/04/23 Status: Ordered Start: 01-11-2023 Vitamin B2 100 mg oral tablet Dose : 100 mg = 1 tab(s), Oral, Daily, # 30 tab(s), 2 Refill(s), Pharmacy: [facility]/pharmacy #[id number], 155, cm, 01/11/23 15:08:00 EDT, Height Start Date: 01/11/23 Status: Ordered Vitamin B6 (11 sources) Start: 10-30-2022 Vitamin B6 Ora l, qDay, 0 Refill(s) [...] (FLONASE) 50 mcg/actuation nasal spray Use 1 [place] in each nostril once daily. 1 Bottle 2 07/10/2014 08/19/2022 Discontinued Comment on above: Use 1 [place] in each nostril once daily. loratadine 10 mg oral tablet (3 sources) Start: 03-17-2016 End: 08-19-2022 take 1 tablet by mouth once daily loratadine (CLARITIN) 10 mg tablet Take 1 tablet by mouth once daily. 30 tablet 6 03/17/2016 08/19/2022 Discontinued Comment on above: Take 1 tablet by brandee th once daily. magnesium hydroxide 80 mg/ml oral [...] (3 sources) Congenital vesicoureterorenal reflux; Translations: [Congenital aodabb-qdfzwff-oxhsa reflux] Onset: 5 Chronic Headache; including migraine [...] Name Value Interpretation Reference Range Facil ity (ROM) Rupture Of Membraneson 07-30-2025 ROM Negative Normal Negative [facility] Comment on above: Result Comment: Amni otic fluid not present indicates No Rupture of Membranes at time of specimen collection. Performed By: #### L 400.0001, M100.678, M100.2200 #### [facility] Laboratory [address] [place], [address] 12 Lead EKGon 07-29-2025 12 Lead EKG [facility] Cardiovascular Services [address] [place] [address] 12 Lead EKG 07/29/252108 MR#: [id number] Acct: [id number] Name: LUZ OLIVEIRA Rep #: [id number] : 2000 From: Keven Alvarez MD Attending Dr: Lupe Mead CNM Status: DEP CLI Ordering Dr: José Manuel Major MD Date: 07/29/25 Location: [facility] Sex: F C Admitted: Test Reason : SOB Blood Pressure : */* mmHG Vent. Rate : 107 BPM Atrial Rate : 107 BPM P-R Int : 130 ms QRS Dur : 74 ms QT Int : 328 ms P-R-T Axes : 36 61 -29 degrees QTcB Int : [address] T wave abnormality, consider inferior ischemia Abnormal ECG Confirmed by KEVEN ALVAREZ MD ([id number]), news editor BEAU SHIRLEY ([id number]) on 07/30/2025 10:40:55 AM Referred By: Lupe Mead Confirmed By: KEVEN ALVAREZ MD 07/30/25 1040 Date Keven Alvarez MD CC: CNM Lupe Mead; Dr. José Manuel Major MD; No Primary Care Physician Signed Normal [facility] Basic Metabolic Profile (BMP )on 07-29-2025 BUN/CRE 11.3 RATIO Normal 07-30 [facility] Comment on above: Performed By: #### L 501.2450, L500.3400, L500.2500 #### [facility] [address] [place], [address] Calcium [Mass/Vol] 9.2 mg/dL Normal 7.6-11.0 [facility] Comment on above: Performed By: #### L 501.2450, L500.3400, L500.2500 #### [facility] [address] [place], [address] Chloride [Moles/Vol] 103 mmol/L Normal 98-108 [facility] Comment on above: Performed By: #### L 501.2450, L500.3400, L500.2500 #### [facility] [address] [place], [address] CO2 [Moles/Vol] 22.0 mmol/L Normal 21.0-32.0 [facility] Comment on above: Performed By: #### L 501.2450, L500.3400, L500.2500 #### [facility] [address] [place], [address] Creatinine [Mass/Vol] 0.60 mg/dL Low 0.70-1.20 [facility] Comment on above: Performed By: #### L 501.2450, L500.3400, L500.2500 #### [facility] [address] [place], [address] ECRCL 142.90 ml/min Normal 50-250 [facility] Comment on above: Performed By: #### L 501.2450, L500.3400, L500.2500 #### [facility] [address] [place], [address] GAP 13 Normal 5-15 [facility] Comment on above: Performed By: #### L 501.2450, L500.3400, L500.2500 #### [facility] [address] [place], [address] GFR/1.73 sq M.predicted among non-blacks MDRD (S/P/Bld) [Vol rate/Area] 127 mL/min/{1.73_m2} Normal >60 [facility] Comment on above: Result Comment: mL/m in/1.73m2 CKD-EPI Creatinine Equation (2020) Performed By: #### L 501.2450, L500.3400, L500.2500 #### [facility] [address] [place], [address] Glucose [Mass/Vol] 93 mg/dL Normal 70-99 [facility] Comment on above: Performed By: #### L 501.2450, L500.3400, L500.2500 #### [facility] [address] [place], [address] Potassium [Moles/Vol] 3.4 mmol/L Normal 3.3-5.1 [facility] Comment on above: Performed By: #### L 501.2450, L500.3400, L500.2500 #### [facility] [address] [place], [address] Sodium [Moles/Vol] 137 mmol/L Normal 133-145 [facility] Comment on above: Performed By: #### L 501.2450, L500.3400, L500.2500 #### [facility] [address] [place], [address] Urea nitrogen [Mass/Vol] 7 mg/dL Normal 4-19 [facility] Comment on above: Performed By: #### L 501.2450, L500.3400, L500.2500 #### [facility] [address] [place], [address] CBC W/Diff, Automatedon 07-11 Absolute Lymph 1.65 X10 3/uL Normal 0.83-4.51 [facility] Comment on above: Performed By: #### L 100.0100, L500.4050 #### [facility] [address] [place], [address] Absolute Neut 7.6 X10 3/uL Normal 2.0-7.7 [facility] Comment on above: Performed By: #### L 100.0100, L500.4050 #### [facility] [address] [place], [address] Basophils/100 WBC (Bld) 0.1 % Normal 0-1 [facility] Comment on above: Performed By: #### L 100.0100, L500.4050 #### [facility] [address] [place], [address] Eosinophils/100 WBC (Bld) 0.3 % Normal 0-5 [facility] Comment on above: Performed By: #### L 100.0100, L500.4050 #### [facility] [address] [place], [address] Erythrocyte distribution width (RBC) [Ratio] 13.9 % Normal 11.6-14.6 [facility] Comment on above: Performed By: #### L 100.0100, L500.4050 #### [facility] [address] [place], [address] Hematocrit (Bld) [Volume fraction] 32.1 % Low 37-47 [facility] Comment on above: Performed By: #### L 100.0100, L500.4050 #### [facility] [address] [place], [address] Hemoglobin (Bld) [Mass/Vol] 11.4 g/dL Low 12.0-15.0 [facility] Comment on above: Performed By: #### L 100.0100, L500.4050 #### [facility] [address] [place], [address] IG% 0.700 Normal 0.0-0.9 [facility] Comment on above: Result Comment: IG% - Immature Granulocytes (promyelocytes, myelocytes and metamyelocytes) > 1% indicates that a LEFT SHIFT is Present. Performed By: #### L 100.0100, L500.4050 #### [facility] [address] [place], [address] Lymphocytes/100 WBC (Bld) 16.5 % Low 19-41 [facility] Comment on above: Performed By: #### L 100.0100, L500.4050 #### [facility] [address] [place], [address] MCH (RBC) [Entitic mass] 32.6 pg High 27.0-32.0 [facility] Comment on above: Performed By: #### L 100.0100, L500.4050 #### [facility] [address] [place], [address] MCHC (RBC) [Mass/Vol] 35.5 g/dL Normal 32-36 [facility] Comment on above: Performed By: #### L 100.0100, L500.4050 #### [facility] [address] [place], [address] MCV (RBC) [Entitic vol] 91.7 fL Normal 81-99 [facility] Comment on above: Performed By: #### L 100.0100, L500.4050 #### [facility] [address] [place], [address] Monocytes/100 WBC (Bld) 6.3 % Normal 0-10 [facility] Comment on above: Performed By: #### L 100.0100, L500.4050 #### [facility] [address] [place], [address] Neutrophils/100 WBC (Bld) 76.1 % High 47-70 [facility] Comment on above: Performed By: #### L 100.0100, L500.4050 #### [facility] [address] [place], [address] Nucleated RBC (Bld) [#/Vol] 0 10*3/uL Normal 0-5 [facility] Comment on above: Performed By: #### L 100.0100, L500.4050 #### [facility] [address] [place], [address] Platelet mean volume (Bld) [Entitic vol] 10.4 fL Normal 6.2-12.0 [facility] Comment on above: Performed By: #### L 100.0100, L500.4050 #### [facility] [address] [place], [address] Platelets (Bld) [#/Vol] 204 10*3/uL Normal 150-450 [facility] Comment on above: Performed By: #### L 100.0100, L500.4050 #### [facility] [address] [place], [address] RBC (Bld) [#/Vol] 3.50 10*6/uL Low 4.2-5.4 [facility] Comment on above: Performed By: #### L 100.0100, L500.4050 #### [facility] [address] [place], [address] RDW SD 46.3 fl High 35.1-43.9 [facility] Comment on above: Performed By: #### L 100.0100, L500.4050 #### [facility] [address] [place], [address] WBC (Bld) [#/Vol] 10.0 10*3/uL Normal 4.4-11.0 [facility] Comment on above: Performed By: #### L 100.0100, L500.4050 #### [facility] [address] [place], [address] CTA Chest W/WO Contraston CTA Chest W/WO Contrast [facility] Imaging Services [address] [place] [address] CTA Chest W/WO Contrast MR#: [id number] Acct: [id number] Name: LUZ OLIVEIRA Rep #: [id number] : 2000 F 24 From: Johnny Brooks MD PCP: Care Physician,No Primary Status: REG ER Study: CTA Chest W/WO Contrast Date of Exam: 07/29/25 Exam# [id number] Ordering Dr: José Manuel Major MD PROCEDURE: CTA CHEST W/WO CONTRAST 07/29/2025 REASON FOR EXAM: DYSPNEA AND . SHIELD ABD TECHNIQUE: Procedure Code: CTCTACHWW Modality: CT Procedure: CTA CHEST W/WO CONTRAST Multiplanar Sagittal and Coronal images were obtained. CONTRAST: VOLUME: mL One or more dose reduction techniques were used (e.g., Automated exposure control, adjustment of the mA and/or kV according to patient size, use of iterative reconstruction technique). COMPARISON: CT abdomen and pelvis dated 01/02/2025. FINDINGS: No filling defect suggestive of a pulmonary embolism is identified to the secondary branches of the pulmonary arteries. The lungs are clear. No airspace consolidation, pulmonary nodule, or pleural effusion. The heart and great vessels appear unremarkable. No thoracic lymphadenopathy. No acute osseous abnormality. Hepatomegaly with fatty infiltration, unchanged.. A poorly marginated focus of enhancement in the right lobe of the liver is unchanged from the previous study. CT/CTA Chest W/WO Contrast IMPRESSION: No CT evidence of a pulmonary embolism. No CT evidence of an acute cardiothoracic process. Hepatomegaly with fatty infiltration, unchanged. Stable poorly marginated focus of enhancement in the right lobe of the liver. Consider follow-up imaging in 6-12 months to evaluate for continued stability. Reading Location: [id number] CC: Dr. José Manuel Major MD; No Primary Care Physician Pipe Bender: Signed Normal [facility] D-Dimer Quantitative (DVT/PE )on 07-29-2025 D-DIMER QUANT 0.68 FEU/ug/m Invalid Interpretation Code 0.27-0.49 [facility] Comment on above: Result Comment: D-Di rocky ELEVATED (>0.49): Additional studies and clinical assessments are indicated to conclude diagnosis of: Deep Vein Thrombosis (DVT) or Pulmonary Embolism (PE) Performed By: #### L 100.0100, L500.4050 #### [facility] [address] [place], [place], [address] Emergency Department Summary on 07-29-2025 [facility] [address] [place] [address] Emergency Department Summary 07/29/25 MR#: [id number] Acct: [id number] Name: LUZ OLIVEIRA Rep #: [id number] : 2000 24 From: José Manuel Major MD PCP: Care Physician,No Primary Status:REG ER Location: ED HPI History of Present Illness Chief Complaint: Shortness of Breath Informant: patient Onset/Context/Timing Onset: Days Context: gradual Timing: Continuous Quality: Positive for Dyspnea on exertion Current Severity: Moderate Maximum Severity: Moderate Worsened by: Exertion Relieved by: Nothing Associated Symptoms Chest Pain: Positive for None Narrative Narrative: 24-year-old female G3, P1 Ab1 with having a miscarriage. Currently 25 weeks . Seeing [place] 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 States that she has had bilateral lower rib cage pain for the last 2 weeks and started having shortness of breath last 2 days. No anterior chest pain. No hemoptysis. She does have edema around both ankles. Denies any hemoptysis or chest pain. No history of DVT or PE in the past. She has never had -induced hypertension or eclampsia or preeclampsia with the other pregnancies. But they have been watching her blood pressures with this 1. PE Risk Factors: Positive for - (25 weeks .); Negative for Cancer, OCP + Smoking + > 35, Prior DVT or PE, Recent immobilization, Recent surgery or Recent travel Prior similar symptoms: No Recent Illness/Hospitalizati on: No PFSH PFSH Medical History Fatty liver Renal atrophy, left Elevated liver enzymes Heart palpitations History of gestational hypertension Obesity affecting 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 friuln-ivcslki-pmgez reflux Home Medications ???Medication ???Instructions ???Recorded ???Last Taken ???Type kyzvffdx-ypd-Xo-FA 1 mg 1 tab PO DAILY 08/09/22 Unknown Hi story tablet metoclopramide HCl 10 mg tablet 10 mg PO TID nausea #90 tabs 07/09 Unknown Rx (Reglan) Allergy/AdvReac Type Severity Reaction Status Date / Time escitalopram (From Lexapro) AdvReac Severe SUICIDAL Verified 07/29/25 19:56 citalopram hydrobromide AdvReac Other Verified 07/29/25 19:56 (From Celexa) Family History Grandmother Breast cancer Brain cancer Grandfather CVA (cerebral vascular accident) Mother Diabetes Heart failure MRSA carrier History of recurrent miscarriages Father Hypertension Surgical History Bourg teeth removed Social History adopted: No household members: spouse and children housing: house number of children: 1 current occupation: [employer] current occupational exposures/hazards: No pets and animals: [...] 3-4 times per week duration: 15-30 minutes/day kalpana/yazidi: Sabianism seatbelt use: always do you feel safe at home: Yes 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: : 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 Shortness of breath. Constitutional Constitutional ED: Denies chills or fever(s) Eyes Eyes: Denies blurry vision ENT ENT ED: Denies ear pain Cardiovascular Cardiovascular: Denies chest pain Respiratory/Chest Respiratory/Chest: Reports dyspnea; Denies cough Gastrointestinal Gastrointestinal: Denies abdominal pain Genitourinary Genitourinary ED: Denies dysuria or hematuria Musculoskeletal Musculoskeletal: Denies arthralgias Integumentary Denies abscess or Abrasions Neurologic Neurologic: Reports headache(s) Psychiatric Psychiatric: Denies anxiety or depression Endocrine Endocrinology: Denies cold intolerance Hematologic/Lymphatic Hematologic/Lymphatic : Denies easy bleeding, easy bruising or lymphadenopathy Allergic/Immunologic Allergic/Immunologic ED: Denies mouth swelling, tongue swelling or urticaria EXAM Physical Exam Narrative Exam Narrative: 24-year-old female. Vital signs are stable other than her initial blood pressure is 106/60 7 repeat was 140/111. Heart rates about 110. Pulse ox 100% on room air no signs hypoxia. H EENT exam pupils round react light. Moist mutes members. Neck nontender no JVD. Chand[place] (more content not included)... Normal [facility] L501.4021on 07-29-2025 Trop T High Sen < 6 Normal <=14 [facility] Comment on above: Performed By: #### L 400.0001, M100.678, M100.2200 #### [facility] [address] [place], [address] Lipaseon 07-29-2025 Lipase [Catalytic activity/Vol] 19 U/L Normal 13-75 [facility] Comment on above: Result Comment: Lisa paez note: LIPASE revised reference range effective 23. New Lipase methodology. Expected to produce lower values than the previous assay method. NEW Reference Range: 13 - 75 U/L Performed By: #### L 501.2450, L500.3400, L500.2500 #### [facility] [address] [place], [address] Liver Profileon 07-29-2025 Albumin [Mass/Vol] 3.7 g/dL Normal 3.5-5.0 [facility] Comment on above: Performed By: #### L 501.2450, L500.3400, L500.2500 #### [facility] [address] [place], [address] ALK PHOS 65 U/L Normal 35-104 [facility] Comment on above: Performed By: #### L 501.2450, L500.3400, L500.2500 #### [facility] [address] [place], [address] ALT [Catalytic activity/Vol] 12 U/L Normal <=34 [facility] Comment on above: Performed By: #### L 501.2450, L500.3400, L500.2500 #### [facility] [address] [place], [address] AST [Catalytic activity/Vol] 17 U/L Normal <=31 [facility] Comment on above: Performed By: #### L 501.2450, L500.3400, L500.2500 #### [facility] [address] [place], [address] Bilirubin [Mass/Vol] 0.26 mg/dL Normal 0.00-1.30 [facility] Comment on above: Performed By: #### L 501.2450, L500.3400, L500.2500 #### [facility] [address] [place], [address] Bilirubin.direct [Mass/Vol] 0.11 mg/dL Normal 0.00-0.30 [facility] Comment on above: Performed By: #### L 501.2450, L500.3400, L500.2500 #### [facility] [address] [place], [address] Globulin (S) [Mass/Vol] 2.6 g/dL Normal 2.2-4.2 [facility] Comment on above: Performed By: #### L 501.2450, L500.3400, L500.2500 #### [facility] [address] [place], [address] T PROT 6.3 g/dL Normal 5.9-8.4 [facility] Comment on above: Performed By: #### L 501.2450, L500.3400, L500.2500 #### [facility] [address] [place], [address] Troponin T HS 2 HRon 10-19-2 025 Trop T High Sen Normal <=14 [facility] Comment on above: Result Comment: OKAY TO CANCEL PER ZAK RODRIGUEZ Performed By: #### L 400.0001, M100.678, M100.2200 #### [facility] [address] [place], [address] Urinalysis, Completeon 07-29 EPI,SQUAMOUS 0-5 SEEN Normal 5-10 [facility] Comment on above: Order Comment: COLLE CTOR TO SPECIFY Performed By: #### L 400.0001, M100.678, M100.2200 #### [facility] [address] [place], [address] RBC 5-10 SEEN Normal 0-5 [facility] Comment on above: Order Comment: STEPHANIE CTOR TO SPECIFY Performed By: #### L 400.0001, M100.678, M100.2200 #### [facility] [address] [place], [address] BACTERIA 3+ /hpf Normal None Seen [facility] Comment on above: Order Comment: STEPHANIE CTOR TO SPECIFY Performed By: #### L 400.0001, M100.678, M100.2200 #### [facility] [address] [place], [address] Mucus Ql (Urine sed) 0 SEEN Normal [facility] Comment on above: Order Comment: COLLE CTOR TO SPECIFY Performed By: #### L 400.0001, M100.678, M100.2200 #### [facility] [address] [place], [address] WBC 0 SEEN Normal 0-5 [facility] Comment on above: Order Comment: COLLE CTOR TO SPECIFY Performed By: #### L 400.0001, M100.678, M100.2200 #### [facility] [address] [place], [address] CBC W/Diff, Automatedon 09-2 Absolute Lymph 1.09 X10 3/uL Normal 0.83-4.51 [facility] Comment on above: Performed By: #### L 100.0100, L500.4050 #### [facility] [address] [place], [address] Absolute Neut 6.9 X10 3/uL Normal 2.0-7.7 [facility] Comment on above: Performed By: #### L 100.0100, L500.4050 #### [facility] [address] [place], [address] Basophils/100 WBC (Bld) 0.1 % Normal 0-1 [facility] Comment on above: Performed By: #### L 100.0100, L500.4050 #### [facility] [address] [place], [address] Eosinophils/100 WBC (Bld) 0.2 % Normal 0-5 [facility] Comment on above: Performed By: #### L 100.0100, L500.4050 #### [facility] [address] [place], [address] Erythrocyte distribution width (RBC) [Ratio] 14.1 % Normal 11.6-14.6 [facility] Comment on above: Performed By: #### L 100.0100, L500.4050 #### [facility] [address] [place], [address] Hematocrit (Bld) [Volume fraction] 31.9 % Low 37-47 [facility] Comment on above: Performed By: #### L 100.0100, L500.4050 #### [facility] [address] [place], [address] Hemoglobin (Bld) [Mass/Vol] 11.6 g/dL Low 12.0-15.0 [facility] Comment on above: Performed By: #### L 100.0100, L500.4050 #### [facility] [address] [place], [address] IG% 0.600 Normal 0.0-0.9 [facility] Comment on above: Result Comment: IG% - Immature Granulocytes (promyelocytes, myelocytes and metamyelocytes) > 1% indicates that a LEFT SHIFT is Present. Performed By: #### L 100.0100, L500.4050 #### [facility] [address] [place], [address] Lymphocytes/100 WBC (Bld) 12.8 % Low 19-41 [facility] Comment on above: Performed By: #### L 100.0100, L500.4050 #### [facility] [address] [place], [address] MCH (RBC) [Entitic mass] 32.6 pg High 27.0-32.0 [facility] Comment on above: Performed By: #### L 100.0100, L500.4050 #### [facility] [address] [place], [address] MCHC (RBC) [Mass/Vol] 36.4 g/dL High 32-36 [facility] Comment on above: Performed By: #### L 100.0100, L500.4050 #### [facility] [address] [place], [address] MCV (RBC) [Entitic vol] 89.6 fL Normal 81-99 [facility] Comment on above: Performed By: #### L 100.0100, L500.4050 #### [facility] [address] [place], [address] Monocytes/100 WBC (Bld) 4.7 % Normal 0-10 [facility] Comment on above: Performed By: #### L 100.0100, L500.4050 #### [facility] [address] [place], [address] Neutrophils/100 WBC (Bld) 81.6 % High 47-70 [facility] Comment on above: Performed By: #### L 100.0100, L500.4050 #### [facility] [address] [place], [address] Nucleated RBC (Bld) [#/Vol] 0 10*3/uL Normal 0-5 [facility] Comment on above: Performed By: #### L 100.0100, L500.4050 #### [facility] [address] [place], [address] Platelet mean volume (Bld) [Entitic vol] 10.1 fL Normal 6.2-12.0 [facility] Comment on above: Performed By: #### L 100.0100, L500.4050 #### [facility] [address] [place], [address] Platelets (Bld) [#/Vol] 180 10*3/uL Normal 150-450 [facility] Comment on above: Performed By: #### L 100.0100, L500.4050 #### [facility] [address] [place], [address] RBC (Bld) [#/Vol] 3.56 10*6/uL Low 4.2-5.4 [facility] Comment on above: Performed By: #### L 100.0100, L500.4050 #### [facility] [address] [place], [address] RDW SD 45.9 fl High 35.1-43.9 [facility] Comment on above: Performed By: #### L 100.0100, L500.4050 #### [facility] [address] [place], [address] WBC (Bld) [#/Vol] 8.5 10*3/uL Normal 4.4-11.0 [facility] Comment on above: Performed By: #### L 100.0100, L500.4050 #### [facility] [address] [place], [address] Comprehensive Metabolic Prof ilsoumya 07-09-2025 Albumin [Mass/Vol] 3.9 g/dL Normal 3.5-5.0 [facility] Comment on above: Performed By: #### L 100.0100 #### [facility] [address] [place], [address] Albumin/Globulin [Mass ratio] 1.4 {ratio} Normal 0.9-2.4 [facility] Comment on above: Performed By: #### L 100.0100 #### [facility] [address] [place], [address] ALK PHOS 65 U/L Normal 35-104 [facility] Comment on above: Performed By: #### L 100.0100 #### [facility] [address] [place], [address] ALT [Catalytic activity/Vol] 20 U/L Normal <=34 [facility] Comment on above: Performed By: #### L 100.0100 #### [facility] [address] [place], [address] AST [Catalytic activity/Vol] 23 U/L Normal <=31 [facility] Comment on above: Performed By: #### L 100.0100 #### [facility] [address] [place], [address] Bilirubin [Mass/Vol] 0.35 mg/dL Normal 0.00-1.30 [facility] Comment on above: Performed By: #### L 100.0100 #### [facility] [address] [place], [address] BUN/CRE 10.5 RATIO Normal 10-20 [facility] Comment on above: Performed By: #### L 100.0100 #### [facility] [address] [place], [address] Calcium [Mass/Vol] 9.1 mg/dL Normal 7.6-11.0 [facility] Comment on above: Performed By: #### L 100.0100 #### [facility] [address] [place], [address] Chloride [Moles/Vol] 105 mmol/L Normal 98-108 [facility] Comment on above: Performed By: #### L 100.0100 #### [facility] [address] [place], [address] CO2 [Moles/Vol] 18.7 mmol/L Low 21.0-32.0 [facility] Comment on above: Performed By: #### L 100.0100 #### [facility] [address] [place], [address] Creatinine [Mass/Vol] 0.60 mg/dL Low 0.70-1.20 [facility] Comment on above: Performed By: #### L 100.0100 #### [facility] [address] [place], [address] GAP 14 Normal 5-15 [facility] Comment on above: Performed By: #### L 100.0100 #### [facility] [address] [place], [address] GFR/1.73 sq M.predicted among non-blacks MDRD (S/P/Bld) [Vol rate/Area] 128 mL/min/{1.73_m2} Normal >60 [facility] Comment on above: Result Comment: mL/m in/1.73m2 CKD-EPI Creatinine Equation (2020) Performed By: #### L 100.0100 #### [facility] [address] [place], [address] Globulin (S) [Mass/Vol] 2.8 g/dL Normal 2.2-4.2 [facility] Comment on above: Performed By: #### L 100.0100 #### [facility] [address] [place], [address] Glucose [Mass/Vol] 91 mg/dL Normal 70-99 [facility] Comment on above: Performed By: #### L 100.0100 #### [facility] [address] [place], [address] Potassium [Moles/Vol] 3.7 mmol/L Normal 3.3-5.1 [facility] Comment on above: Performed By: #### L 100.0100 #### [facility] [address] [place], [address] Sodium [Moles/Vol] 137 mmol/L Normal 133-145 [facility] Comment on above: Performed By: #### L 100.0100 #### [facility] [address] [place], [address] T PROT 6.7 g/dL Normal 5.9-8.4 [facility] Comment on above: Performed By: #### L 100.0100 #### [facility] [address] [place], [address] Urea nitrogen [Mass/Vol] 6 mg/dL Normal 4-19 [facility] Comment on above: Performed By: #### L 100.0100 #### [facility] [address] [place], [address] Psychiatric Aide Office Visit Reporton 07-09-2025 Psychiatric Aide Office Visit Report [facility] [address], [address] [place] [address] OFFICE VISIT Date of Service: 07/09/25 MR#: [id number] Acct: [id number] Name: LUZ OLIVEIRA Rep #: [id number] : 2000 Provider: Dr. Geraldine storey MD Age/Sex: 24/F Location: [facility] Status: Signed Intake Vital Signs 07/03/25 15:35 07/09/25 0907/09/25 09:30 Height 5 ft 1 in 5 ft 1 in 5 ft 1 in Weight: 185 lb 4 oz 184 lb 4 oz BMI 34.9 34.8 BP 109/74 107/76 Intake Visit Reasons: DISCUSS CONCERNS * OK PER Body Service Team Member Required: No Is patient in pain?: No Allergies escitalopram (From Lexapro) Adverse Reaction (Severe, Verified 07/09/25 09:30) SUICIDAL citalopram hydrobromide (From Celexa) Adverse Reaction (Verified 07/09/25 09:30) Other Medications ???Medication ???Instructions ???Recorded ???Confirmed ???Type nukyntvq-hie-Js-FA 1 mg 1 tab PO DAILY 08/09/22 [...] hypertension Obesity affecting 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 urarjf-jogcdko-faovu reflux Surgical History Bourg teeth removed Family History Grandmother Breast cancer Brain cancer Grandfather CVA (cerebral vascular accident) Mother Diabetes Heart failure MRSA carrier History of recurrent miscarriages Father Hypertension Social History adopted: No household members: spouse and children housing: house number of children: 1 current occupation: [employer] current occupational exposures/hazards: No pets and animals: [...] 3-4 times per week duration: 15-30 minutes/day kalpana/yazidi: Sabianism seatbelt use: always do you feel safe at home: Yes 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 Date Name GA/Weeks Outcome Route Bth Weight Gen Labor Lgth Anesthesia Del Locatn Provider FOB 10/11/18 Chemical 4 spontaneous 03/30/23 Amanda 39 live - full term vacuum 6lbs 1oz Female epidural [facility] Delivery Date: 03/30/23 Last Updated [...] Visit Note (more content not included)... Normal [facility] Protein+Creatinine Ratio,Uri neon 07-09-2025 PROT:CRE RATIO 283 mg/g CRE High 0-200 [facility] Comment on above: Performed By: #### L 501.0900 #### [facility] [address] [place], [address] Protein (U) [Mass/Vol] 73.9 mg/dL High 0.0-12.0 [facility] Comment on above: Performed By: #### L 501.0900 #### [facility] [address] [place], [address] UR CREAT 261.00 mg/dL High 28.00-217.00 [facility] Comment on above: Performed By: #### L 501.0900 #### [facility] [address] [place], [address] Wound Cultureon 07-06-2025 WC Lesion of abdomen Possible skin contamination, further Identification and sensitivity will be performed only by physician's request. Coag Negative Staph Amount Growth 2+ Normal [facility] Comment on above: Performed By: #### L 100.0100, L500.4050 #### [facility] [address] [place], [address] Gram Stainon 07-04-2025 GS Lesion of abdomen Gram Stain 1+ White Blood Cells No organisms seen Normal [facility] Comment on above: Performed By: #### L 100.0100, L500.4050 #### [facility] [address] [place], [address] Psychiatric Aide Office Visit Reporton 07-03-2025 Psychiatric Aide Office Visit Report [facility]'s [address], [address] [place] [address] OFFICE VISIT Date of Service: 07/03/25 MR#: [id number] Acct: [id number] Name: LUZ OLIVEIRA Rep #: [id number] : 2000 Provider: JARAD moctezuma Age/Sex: 24/F Location: [facility] Status: Signed Intake Vital Signs 05/07/25 14:40 06/06/25 13:39 07/03/25 15:35 Height 5 ft 1 in 5 ft 1 in 5 ft 1 in Weight: 185 lb 4 oz BMI 34.9 BP 109/74 Intake Visit Reasons: 21wk ob Chief Complaint: 21 Week OB Body Service Team Member Required: No Is patient in pain?: No Allergies escitalopram (From Lexapro) Adverse Reaction (Severe, Verified 07/03/25 15:38) SUICIDAL citalopram hydrobromide (From Celexa) Adverse Reaction (Verified 07/03/25 15:38) Other Medications ???Medication ???Instructions ???Recorded ???Confirmed ???Type oocsivxm-kqq-Mo-FA 1 mg 1 tab PO DAILY 08/09/22 [...] hypertension Obesity affecting 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 cpgbxd-airhwjx-iaxtt reflux Surgical History Bourg teeth removed Family History Grandmother Breast cancer Brain cancer Grandfather CVA (cerebral vascular accident) Mother Diabetes Heart failure MRSA carrier History of recurrent miscarriages Father Hypertension Social History adopted: No household members: spouse and children housing: house number of children: 1 current occupation: [employer] current occupational exposures/hazards: No pets and animals: [...] 3-4 times per week duration: 15-30 minutes/day aklpana/yazidi: Sabianism seatbelt use: always do you feel safe at home: Yes 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 Date Name GA/Weeks Outcome Route Bth Weight Gen Labor Lgth Anesthesia Del Locatn Provider FOB 10/11/18 Chemical 4 spontaneous 03/30/23 Amanda 39 live - full term vacuum 6lbs 1oz [facility] Delivery Date: 03/30/23 Last Updated by: [...] ??-???- 9w (more content not included)... Normal [facility] Progress Noteon 06-20-2025 Diabetologist Authentication Interface Message Text [facility]- MEDICINE CONSULT Referring/Requesting Provider: Rama [...] disorder Chronic kidney disease kidney stones Congenital bbyflv-jeblfuf-pylvt reflux Depression Elevated liver enzymes Headache in [...] repeat LFTs are elevated, refer to local product mgr for further evaluation. Frequent UTI 06/20/2025 - [...] hemorrhage, stillbirth, anomalies, delivery and postcesarean complications. Cameron of medicine recommend weight gain in : [...] findings. Ame (more content not included)... Normal [facility] Psychiatric Aide Office Visit Reporton 06-06-2025 Psychiatric Aide Office Visit Report [facility]'s [address], [address] [place] [address] OFFICE VISIT Date of Service: 06/06/25 MR#: [id number] Acct: [id number] Name: LUZ OLIVEIRA Rep #: 50 [...] 112/68 Intake Visit Reasons: 17 wk ob Body Service Team Member Required: No Is patient in pain?: No Allergies escitalopram (From Lexapro) Adverse Reaction (Severe, Verified 06/06/25 13:36) SUICIDAL citalopram hydrobromide (From Celexa) Adverse Reaction (Verified 06/06/25 13:36) Other Medications ???Medication ???Instructions ???Recorded ???Confirmed ???Type nnilhtxf-hji-Jy-FA 1 mg 1 tab PO DAILY 08/09/22 06/06/25 H istory tablet metoclopramide HCl 5 mg tablet 5 mg PO QACHS #60 tabs 04/19/25 Rx (Reglan) Last Menstrual Period: 02/02/25 Zika: Zika virus screening: Negative : No PFSH PFSH Medical History Fatty liver Renal atrophy, left Elevated liver enzymes Heart palpitations History of gestational hypertension Obesity affecting 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 tagqmx-dolupqa-cxsuq reflux Surgical History Bourg teeth removed Family History Grandmother Breast cancer Brain cancer Grandfather CVA (cerebral vascular accident) Mother Diabetes Heart failure MRSA carrier History of recurrent miscarriages Father Hypertension Social History adopted: No household members: spouse and children housing: house number of children: 1 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 Date Name GA/Weeks Outcome Route Bth Weight Infant Gen [facility] 10/[facility]18 Chemical 4 spontaneous 03/30/23 Amanda 39 live - full term vacuum 6lbs 1oz Female epidural [facility] Saravanan Delivery Date: 03/30/23 Last Updated by: Yasmin [...] ??-???- Negat (more content not included)... Normal [facility] Urine Cultureon 06-02-2025 URC #1,2 Gram positive francheska suggestive of a diphtheroid. Susceptibility not normally performed on this organism Urine Culture Urine Culture Urine Culture Corynebacterium amycolatum [place] Count 11,000-25,000 Corynebacterium minutissimum Corynebacterium minutissimum Normal [facility] Comment on above: Performed By: #### L 400.0001, M100.678, M100.2200 #### [facility] [address] [place], [address] Cardiology Visit Reporton Cardiology Visit Report [facility] [address] [place], [place] [address] OFFICE VISIT Date of Service: 05/30/25 MR#: [id number] Acct: [id number] Name: LUZ OLIVEIRA Rep #: 63 : 2000 Provider: Dr. Keven Alvarez MD Age/Sex: 24/F Location: [facility] Status: Signed HPI HPI History of Present [...] Source Monitor Intake Visit Reasons: PALP (MONSTER) Body Service Team Member Required: No Accompanied by: Self Is patient in pain?: No Allergies escitalopram (From Lexapro) Adverse Reaction (Severe, Verified 05/30/25 09:34) SUICIDAL citalopram hydrobromide (From Celexa) Adverse Reaction (Verified 05/30/25 09:34) Other Medications ???Medication ???Instructions ???Recorded ???Confirmed ???Type ayfmrfwi-ige-Wh-FA 1 mg 1 tab PO DAILY 08/09/22 05/30/25 H istory tablet metoclopramide HCl 5 mg tablet 5 mg PO QACHS #60 tabs 04/19/25 Rx (Reglan) PFSH Medical History Fatty liver Renal atrophy, left Elevated liver enzymes Heart palpitations History of gestational hypertension Obesity affecting 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 pnexwy-belmiqa-pwopv reflux Surgical History Bourg teeth removed Family History Grandmother Breast cancer Brain cancer Grandfather CVA (cerebral vascular accident) Mother Diabetes Heart failure MRSA carrier History of recurrent miscarriages Father Hypertension Social History adopted: No household members: spouse and children housing: house number of children: 1 current occupation: [employer] current occupational exposures/hazards: No pets and animals: [...] 3-4 times per week duration: 15-30 minutes/day kalpana/yazidi: Sabianism seatbelt use: always do you feel safe at home: Yes 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 Normal [facility] Comprehensive Metabolic Prof ilon 05-30-2025 Albumin [Mass/Vol] 4.0 g/dL Normal 3.5-5.0 [facility] Comment on above: Performed By: #### L 100.0100, L500.4050 #### [facility] [address] [place], [address] Albumin/Globulin [Mass ratio] 1.5 {ratio} Normal 0.9-2.4 [facility] Comment on above: Performed By: #### L 100.0100, L500.4050 #### [facility] [address] [place], [address] ALK PHOS 56 U/L Normal 35-104 [facility] Comment on above: Performed By: #### L 100.0100, L500.4050 #### [facility] [address] [place], [address] ALT [Catalytic activity/Vol] 35 U/L Normal <=34 [facility] Comment on above: Performed By: #### L 100.0100, L500.4050 #### [facility] [address] [place], [address] AST [Catalytic activity/Vol] 29 U/L Normal <=31 [facility] Comment on above: Performed By: #### L 100.0100, L500.4050 #### [facility] [address] [place], [address] Bilirubin [Mass/Vol] 0.36 mg/dL Normal 0.00-1.30 [facility] Comment on above: Performed By: #### L 100.0100, L500.4050 #### [facility] [address] [place], [address] BUN/CRE 10.5 RATIO Normal 10-20 [facility] Comment on above: Performed By: #### L 100.0100, L500.4050 #### [facility] [address] [place], [address] Calcium [Mass/Vol] 9.3 mg/dL Normal 7.6-11.0 [facility] Comment on above: Performed By: #### L 100.0100, L500.4050 #### [facility] [address] [place], [address] Chloride [Moles/Vol] 104 mmol/L Normal 98-108 [facility] Comment on above: Performed By: #### L 100.0100, L500.4050 #### [facility] [address] [place], [address] CO2 [Moles/Vol] 20.0 mmol/L Low 21.0-32.0 [facility] Comment on above: Performed By: #### L 100.0100, L500.4050 #### [facility] [address] [place], [address] Creatinine [Mass/Vol] 0.57 mg/dL Low 0.70-1.20 [facility] Comment on above: Performed By: #### L 100.0100, L500.4050 #### [facility] [address] [place], [address] GAP 14 Normal 5-15 [facility] Comment on above: Performed By: #### L 100.0100, L500.4050 #### [facility] [address] [place], [address] GFR/1.73 sq M.predicted among non-blacks MDRD (S/P/Bld) [Vol rate/Area] 129 mL/min/{1.73_m2} Normal >60 [facility] Comment on above: Result Comment: mL/m in/1.73m2 CKD-EPI Creatinine Equation (2020) Performed By: #### L 100.0100, L500.4050 #### [facility] [address] [place], [address] Globulin (S) [Mass/Vol] 2.6 g/dL Normal 2.2-4.2 [facility] Comment on above: Performed By: #### L 100.0100, L500.4050 #### [facility] [address] [place], [address] Glucose [Mass/Vol] 92 mg/dL Normal 70-99 [facility] Comment on above: Performed By: #### L 100.0100, L500.4050 #### [facility] [address] [place], [address] Potassium [Moles/Vol] 3.8 mmol/L Normal 3.3-5.1 [facility] Comment on above: Performed By: #### L 100.0100, L500.4050 #### [facility] [address] [place], [address] Sodium [Moles/Vol] 138 mmol/L Normal 133-145 [facility] Comment on above: Performed By: #### L 100.0100, L500.4050 #### [facility] [address] [place], [address] T PROT 6.6 g/dL Normal 5.9-8.4 [facility] Comment on above: Performed By: #### L 100.0100, L500.4050 #### [facility] [address] [place], [address] Urea nitrogen [Mass/Vol] 6 mg/dL Normal 4-19 [facility] Comment on above: Performed By: #### L 100.0100, L500.4050 #### [facility] [address] [place], [address] Thyroid Stim Hormone (TSH)on 05-30-2025 TSH 0.631 uIU/mL Normal 0.300-4.200 [facility] Comment on above: Performed By: #### L 100.0100, L500.4050 #### [facility] [address] [place], [address] CBC W/Diff, Automatedon Absolute Lymph 1.81 X10 3/uL Normal 0.83-4.51 [facility] Comment on above: Performed By: #### L 100.0100, L500.4050 #### [facility] [address] [place], [address] Absolute Neut 5.3 X10 3/uL Normal 2.0-7.7 [facility] Comment on above: Performed By: #### L 100.0100, L500.4050 #### [facility] [address] [place], [address] Basophils/100 WBC (Bld) 0.1 % Normal 0-1 [facility] Comment on above: Performed By: #### L 100.0100, L500.4050 #### [facility] [address] [place], [address] Eosinophils/100 WBC (Bld) 0.3 % Normal 0-5 [facility] Comment on above: Performed By: #### L 100.0100, L500.4050 #### [facility] [address] [place], [address] Erythrocyte distribution width (RBC) [Ratio] 12.9 % Normal 11.6-14.6 [facility] Comment on above: Performed By: #### L 100.0100, L500.4050 #### [facility] [address] [place], [address] Hematocrit (Bld) [Volume fraction] 36.8 % Low 37-47 [facility] Comment on above: Performed By: #### L 100.0100, L500.4050 #### [facility] [address] [place], [address] Hemoglobin (Bld) [Mass/Vol] 13.0 g/dL Normal 12.0-15.0 [facility] Comment on above: Performed By: #### L 100.0100, L500.4050 #### [facility] [address] [place], [address] IG% 0.400 Normal 0.0-0.9 [facility] Comment on above: Result Comment: IG% - Immature Granulocytes (promyelocytes, myelocytes and metamyelocytes) > 1% indicates that a LEFT SHIFT is Present. Performed By: #### L 100.0100, L500.4050 #### [facility] [address] [place], [address] Lymphocytes/100 WBC (Bld) 23.5 % Normal 19-41 [facility] Comment on above: Performed By: #### L 100.0100, L500.4050 #### [facility] [address] [place], [address] MCH (RBC) [Entitic mass] 31.0 pg Normal 27.0-32.0 [facility] Comment on above: Performed By: #### L 100.0100, L500.4050 #### [facility] [address] [place], [address] MCHC (RBC) [Mass/Vol] 35.3 g/dL Normal 32-36 [facility] Comment on above: Performed By: #### L 100.0100, L500.4050 #### [facility] [address] [place], [address] MCV (RBC) [Entitic vol] 87.6 fL Normal 81-99 [facility] Comment on above: Performed By: #### L 100.0100, L500.4050 #### [facility] [address] [place], [address] Monocytes/100 WBC (Bld) 6.7 % Normal 0-10 [facility] Comment on above: Performed By: #### L 100.0100, L500.4050 #### [facility] [address] [place], [address] Neutrophils/100 WBC (Bld) 69.0 % Normal 47-70 [facility] Comment on above: Performed By: #### L 100.0100, L500.4050 #### [facility] [address] [place], [address] Nucleated RBC (Bld) [#/Vol] 0 10*3/uL Normal 0-5 [facility] Comment on above: Performed By: #### L 100.0100, L500.4050 #### [facility] [address] [place], [address] Platelet mean volume (Bld) [Entitic vol] 10.3 fL Normal 6.2-12.0 [facility] Comment on above: Performed By: #### L 100.0100, L500.4050 #### [facility] [address] [place], [address] Platelets (Bld) [#/Vol] 198 10*3/uL Normal 150-450 [facility] Comment on above: Performed By: #### L 100.0100, L500.4050 #### [facility] [address] [place], [address] RBC (Bld) [#/Vol] 4.20 10*6/uL Normal 4.2-5.4 [facility] Comment on above: Performed By: #### L 100.0100, L500.4050 #### [facility] [address] [place], [address] RDW SD 39.9 fl Normal 35.1-43.9 [facility] Comment on above: Performed By: #### L 100.0100, L500.4050 #### [facility] [address] [place], [address] WBC (Bld) [#/Vol] 7.7 10*3/uL Normal 4.4-11.0 [facility] Comment on above: Performed By: #### L 100.0100, L500.4050 #### [facility] [address] [place], [address] Comprehensive Metabolic Prof ilon 05-14-2025 Albumin [Mass/Vol] 4.2 g/dL Normal 3.5-5.0 [facility] Comment on above: Performed By: #### L 100.0100, L500.4050 #### [facility] [address] [place], [address] Albumin/Globulin [Mass ratio] 1.5 {ratio} Normal 0.9-2.4 [facility] Comment on above: Performed By: #### L 100.0100, L500.4050 #### [facility] [address] [place], [address] ALK PHOS 61 U/L Normal 35-104 [facility] Comment on above: Performed By: #### L 100.0100, L500.4050 #### [facility] [address] [place], [address] ALT [Catalytic activity/Vol] 47 U/L High <=34 [facility] Comment on above: Performed By: #### L 100.0100, L500.4050 #### [facility] [address] [place], [address] AST [Catalytic activity/Vol] 36 U/L High <=31 [facility] Comment on above: Performed By: #### L 100.0100, L500.4050 #### [facility] [address] [place], [address] Bilirubin [Mass/Vol] 0.52 mg/dL Normal 0.00-1.30 [facility] Comment on above: Performed By: #### L 100.0100, L500.4050 #### [facility] [address] [place], [address] BUN/CRE 10.7 RATIO Normal 10-20 [facility] Comment on above: Performed By: #### L 100.0100, L500.4050 #### [facility] [address] [place], [address] Calcium [Mass/Vol] 9.5 mg/dL Normal 7.6-11.0 [facility] Comment on above: Performed By: #### L 100.0100, L500.4050 #### [facility] [address] [place], [address] Chloride [Moles/Vol] 102 mmol/L Normal 98-108 [facility] Comment on above: Performed By: #### L 100.0100, L500.4050 #### [facility] [address] [place], [address] CO2 [Moles/Vol] 18.6 mmol/L Low 21.0-32.0 [facility] Comment on above: Performed By: #### L 100.0100, L500.4050 #### [facility] [address] [place], [address] Creatinine [Mass/Vol] 0.66 mg/dL Low 0.70-1.20 [facility] Comment on above: Performed By: #### L 100.0100, L500.4050 #### [facility] [address] [place], [address] GAP 16 High 5-15 [facility] Comment on above: Performed By: #### L 100.0100, L500.4050 #### [facility] [address] [place], [address] GFR/1.73 sq M.predicted among non-blacks MDRD (S/P/Bld) [Vol rate/Area] 125 mL/min/{1.73_m2} Normal >60 [facility] Comment on above: Result Comment: mL/m in/1.73m2 CKD-EPI Creatinine Equation (2020) Performed By: #### L 100.0100, L500.4050 #### [facility] [address] [place], [address] Globulin (S) [Mass/Vol] 2.8 g/dL Normal 2.2-4.2 [facility] Comment on above: Performed By: #### L 100.0100, L500.4050 #### [facility] [address] [place], [address] Glucose [Mass/Vol] 92 mg/dL Normal 70-99 [facility] Comment on above: Performed By: #### L 100.0100, L500.4050 #### [facility] [address] [place], [address] Potassium [Moles/Vol] 3.8 mmol/L Normal 3.3-5.1 [facility] Comment on above: Performed By: #### L 100.0100, L500.4050 #### [facility] [address] [place], [address] Sodium [Moles/Vol] 137 mmol/L Normal 133-145 [facility] Comment on above: Performed By: #### L 100.0100, L500.4050 #### [facility] [address] [place], [address] T PROT 7.0 g/dL Normal 5.9-8.4 [facility] Comment on above: Performed By: #### L 100.0100, L500.4050 #### [facility] [address] [place], [address] Urea nitrogen [Mass/Vol] 7 mg/dL Normal 4-19 [facility] Comment on above: Performed By: #### L 100.0100, L500.4050 #### [facility] [address] [place], [address] Psychiatric Aide Office Visit Reporton 05-14-2025 Psychiatric Aide Office Visit Report [facility] [address], [address] [place] [address] OFFICE VISIT Date of Service: 05/14/25 MR#: [id number] Acct: [id number] Name: LUZ OLIVEIRA Rep #: 34 [...] 14wk OB, elevated liver enzymes cbc/cmp FU Body Service Team Member Required: No Is patient in pain?: No Allergies escitalopram (From Lexapro) Adverse Reaction (Severe, Verified 05/14/25 14:48) SUICIDAL citalopram hydrobromide (From Celexa) Adverse Reaction (Verified 05/14/25 14:48) Other Medications ???Medication ???Instructions ???Recorded ???Confirmed ???Type bqijaxry-vsr-Jf-FA 1 mg 1 tab PO DAILY 08/09/22 05/14/25 H istory tablet metoclopramide HCl 5 mg tablet 5 mg PO QACHS #60 tabs 04/19/25 Rx (Reglan) Last Menstrual Period: 02/02/25 Zika: Zika virus screening: Negative : No PFSH PFSH Medical History Congenital kbtgnc-vxiinvy-krrch reflux Surgical History Bourg teeth removed Family History Grandmother Breast cancer Brain cancer Grandfather CVA (cerebral vascular accident) Mother Diabetes Heart failure MRSA carrier History of recurrent miscarriages Father Hypertension Social History adopted: No household members: spouse and children housing: house number of children: 1 current occupation: [employer] current occupational exposures/hazards: No pets and animals: [...] 3-4 times per week duration: 15-30 minutes/day kalpana/yazidi: Sabianism seatbelt use: always do you feel safe at home: Yes 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 (more content not included)... Normal [facility] CBC W/Diff, Automatedon 07- Absolute Lymph 1.24 X10 3/uL Normal 0.83-4.51 [facility] Comment on above: Performed By: #### L 400.0001, M100.678, M100.2200 #### [facility] [address] [place], [address] Absolute Neut 6.2 X10 3/uL Normal 2.0-7.7 [facility] Comment on above: Performed By: #### L 400.0001, M100.678, M100.2200 #### [facility] [address] [place], [address] Basophils/100 WBC (Bld) 0.1 % Normal 0-1 [facility] Comment on above: Performed By: #### L 400.0001, M100.678, M100.2200 #### [facility] [address] [place], [address] Eosinophils/100 WBC (Bld) 0.1 % Normal 0-5 [facility] Comment on above: Performed By: #### L 400.0001, M100.678, M100.2200 #### [facility] [address] [place], [address] Erythrocyte distribution width (RBC) [Ratio] 12.5 % Normal 11.6-14.6 [facility] Comment on above: Performed By: #### L 400.0001, M100.678, M100.2200 #### [facility] [address] [place], [address] Hematocrit (Bld) [Volume fraction] 36.6 % Low 37-47 [facility] Comment on above: Performed By: #### L 400.0001, M100.678, M1.0 #### [facility] [address] [place], [address] Hemoglobin (Bld) [Mass/Vol] 12.8 g/dL Normal 12.0-15.0 [facility] Comment on above: Performed By: #### L 400.0001, M100.678, .0 #### [facility] [address] [place], [address] IG% 0.500 Normal 0.0-0.9 [facility] Comment on above: Result Comment: IG% - Immature Granulocytes (promyelocytes, myelocytes and metamyelocytes) > 1% indicates that a LEFT SHIFT is Present. Performed By: #### L 400.0001, M100.678, .0 #### [facility] [address] [place], [address] Lymphocytes/100 WBC (Bld) 15.8 % Low 19-41 [facility] [facility] Comment on above: Performed By: #### L 400.0001, M100.678, .0 #### [facility] [address] [place], [address] MCH (RBC) [Entitic mass] 30.8 pg Normal 27.0-32.0 [facility] Comment on above: Performed By: #### L 400.0001, M100.678, .0 #### [facility] [address] [place], [address] MCHC (RBC) [Mass/Vol] 35.0 g/dL Normal 32-36 [facility] Comment on above: Performed By: #### L 400.0001, M100.678, M1.2200 #### [facility] [address] [place], [address] MCV (RBC) [Entitic vol] 88.2 fL Normal 81-99 [facility] Comment on above: Performed By: #### L 400.0001, M100.678, M100.2200 #### [facility] [address] [place], [address] Monocytes/100 WBC (Bld) 5.0 % Normal 0-10 [facility] Comment on above: Performed By: #### L 400.0001, M100.678, M1.2200 #### [facility] [address] [place], [address] Neutrophils/100 WBC (Bld) 78.5 % High 47-70 [facility] Comment on above: Performed By: #### L 400.0001, M100.678, M1.0 #### [facility] [address] [place], [address] Nucleated RBC (Bld) [#/Vol] 0 10*3/uL Normal 0-5 [facility] Comment on above: Performed By: #### L 400.0001, M100.678, M1.2200 #### [facility] [address] [place], [address] Platelet mean volume (Bld) [Entitic vol] 10.7 fL Normal 6.2-12.0 [facility] Comment on above: Performed By: #### L 400.0001, M100.678, M100.2200 #### [facility] [address] [place], [address] Platelets (Bld) [#/Vol] 180 10*3/uL Normal 150-450 [facility] Comment on above: Performed By: #### L 400.0001, M100.678, M1.2200 #### [facility] [address] [place], [address] RBC (Bld) [#/Vol] 4.15 10*6/uL Low 4.2-5.4 [facility] Comment on above: Performed By: #### L 400.0001, M100.678, M100.2200 #### [facility] [address] [place], [address] RDW SD 39.5 fl Normal 35.1-43.9 [facility] Comment on above: Performed By: #### L 400.0001, M100.678, M100.2200 #### [facility] [address] [place], [address] WBC (Bld) [#/Vol] 7.8 10*3/uL Normal 4.4-11.0 [facility] Comment on above: Performed By: #### L 400.0001, M100.678, M100.2200 #### [facility] [address] [place], [address] [facility] 05-07-2025 Albumin [Mass/Vol] 4.2 g/dL Normal 3.5-5.0 [facility] Comment on above: Performed By: #### L 400.0001, M100.678, M100.2200 #### [facility] [address] [place], [address] Albumin/Globulin [Mass ratio] 1.6 {ratio} Normal 0.9-2.4 [facility] Comment on above: Performed By: #### L 400.0001, M100.678, M100.2200 #### [facility] [address] [place], [address] ALK PHOS 62 U/L Normal 35-104 [facility] Comment on above: Performed By: #### L 400.0001, M100.678, M1.2200 #### [facility] [address] [place], [address] ALT [Catalytic activity/Vol] 58 U/L High <=34 [facility] Comment on above: Performed By: #### L 400.0001, , #### [facility] [address] [place], [address] AST [Catalytic activity/Vol] 43 U/L High <=31 [facility] Comment on above: Performed By: #### L 400.0001, , #### [facility] [address] [place], [address] Bilirubin [Mass/Vol] 0.56 mg/dL Normal 0.00-1.30 [facility] Comment on above: Performed By: #### L 400.0001, , #### [facility] [address] [place], [address] BUN/CRE 10.7 RATIO Normal 10-20 [facility] Comment on above: Performed By: #### L 400.0001, , #### [facility] [address] [place], [address] Calcium [Mass/Vol] 9.5 mg/dL Normal 7.6-11.0 [facility] Comment on above: Performed By: #### L 400.0001, , #### [facility] [address] [place], [address] Chloride [Moles/Vol] 102 mmol/L Normal 98-108 [facility] Comment on above: Performed By: #### L 400.0001, , #### [facility] [address] [place], [address] CO2 [Moles/Vol] 17.7 mmol/L Low 21.0-32.0 [facility] Comment on above: Performed By: #### L 400.0001, ., #### [facility] [address] [place], [address] Creatinine [Mass/Vol] 0.59 mg/dL Low 0.70-1.20 [facility] Comment on above: Performed By: #### L 400.0001, , #### [facility] [address] [place], [address] GAP 16 High 5-15 [facility] Comment on above: Performed By: #### L 400.0001, , #### [facility] [address] [place], [address] GFR/1.73 sq M.predicted among non-blacks MDRD (S/P/Bld) [Vol rate/Area] 128 mL/min/{1.73_m2} Normal >60 [facility] Comment on above: Result Comment: mL/m in/1.73m2 CKD-EPI Creatinine Equation (2020) Performed By: #### L 400.0001, , #### [facility] [address] [place], [address] Globulin (S) [Mass/Vol] 2.7 g/dL Normal 2.2-4.2 [facility] Comment on above: Performed By: #### L 400.0001, , #### [facility] [address] [place], [address] Glucose [Mass/Vol] 110 mg/dL High 70-99 [facility] Comment on above: Performed By: #### L 400.0001, 8, #### [facility] [address] [place], [address] Potassium [Moles/Vol] 3.7 mmol/L Normal 3.3-5.1 [facility] Comment on above: Performed By: #### L 400.0001, M100.678, M100.2200 #### [facility] [address] [place], [address] Sodium [Moles/Vol] 135 mmol/L Normal 133-145 [facility] Comment on above: Performed By: #### L 400.0001, M100.678, M100.2200 #### [facility] [address] [place], [address] T PROT 6.9 g/dL Normal 5.9-8.4 [facility] Comment on above: Performed By: #### L 400.0001, M100.678, M100.2200 #### [facility] [address] [place], [address] Urea nitrogen [Mass/Vol] 6 mg/dL Normal 4-19 [facility] Comment on above: Performed By: #### L 400.0001, M100.678, M100.2200 #### [facility] [address] [place], [address] HIVon 05-07-2025 HIV Non-Reactive Normal Nonreactive [facility] Comment on above: Result Comment: Non- Reactive Reactive Repeatedly reactive samples must be confirmed according to CDC recommended confirmatory algorithms. The subresults for either HIVAG or AHIV can be used as an aid in the selection of the confirmation algorithm for reactive samples. Send out specimens with Reactive results to [facility] for confirmation. Order the HIV antibody detection and differentiation: [id number] Performed By: #### L 400.0001, M100.678, M100.2200 #### [facility] [address] [place], [address] Hemoglobin A1con 05-07-2025 HbA1c (Bld) [Mass fraction] 5.1 % Normal <=5.6 [facility] Comment on above: Result Comment: Norm al < 5.7 % Prediabetic 5.7 - 6.4 % Diabetic >or= 6.5 % Please note range changes. Performed By: #### L 400.0001, M100.678, .0 #### [facility] [address] [place], [address] Hepatitis C Antibodyon 05-07 Hepatitis C Ab Non-Reactive Normal Nonreactive [facility] Comment on above: Result Comment: Reac tive: Presumptive evidence of antibodies to HCV. Follow CDC recommendations for supplemental testing. Non-Reactive: Antibodies to HCV were not detected; does not exclude the possibility of exposure to HCV Reactive Results are presumptive evidence of antibodies to HCV. Follow CDC recommendations for supplemental testing. Order confirmation testing: HCV Quant by PCR testing - HCVPCR #[id number] Non Reactive: < 0.8 Equivocal: >/= 0.8 to < 1.0 Reactive: >/= 1.0 The CDC requires that a reactive/equivocal HCV antibody result be sent out for confirmation. HCV Quant by PCR testing. Performed By: #### L 400.0001, 00.678, .2199 #### [facility] [address] [place], [address] L3890.6102on 05-07-2025 HEP B Surf Ag Non-Reactive Normal Nonreactive [facility] Comment on above: Result Comment: Reac tive: Presumptive evidence of HBV. Repeatedly reactive samples must be confirmed using a neutralization test ([employer] HBsAg Confirmatory Test) Non-Reactive: HBsAg not detected; does not exclude the possibility of exposure to HBV Performed By: #### L 400.0001, M100.678, .0 #### [facility] [address] [place], [address] L509.4006on 05-07-2025 Rubella IgG REAC Normal Nonreactive [facility] Comment on above: Result Comment: Anti body Result: Interpretation Non-Reactive: Non-Immune Reactive: Immune The following results were obtained with the [employer] Rubella IgG assay. Results from assays of other manufacturers cannot be used interchangeably. Performed By: #### L 400.0001, M100.678, M100.2200 #### [facility] [address] [place], [address] Psychiatric Aide Office Visit Reporton 05-07-2025 Psychiatric Aide Office Visit Report [facility] [address], [address] [place] [address] OFFICE VISIT Date of Service: 05/07/25 MR#: [id number] Acct: [id number] Name: LUZ OLIVEIRA Rep #: [id number] : 2000 Provider: JELENA Ordonez ams Age/Sex: 24/F Location: [facility] Status: Signed Intake Vital Signs 01/02/25 18:31 04/09/25 10:40 05/07/25 14:40 Height 5 ft 1 in 5 ft 1 in 5 ft 1 in Weight: 187 lb 4 oz BMI 35.4 BP 117/83 H Intake Visit Reasons: 13wk OB Chief Complaint: 13wk OB Body Service Team Member Required: No Is patient in pain?: No Allergies escitalopram (From Lexapro) Adverse Reaction (Severe, Verified 05/07/25 14:39) SUICIDAL citalopram hydrobromide (From Celexa) Adverse Reaction (Verified 05/07/25 14:39) Other Medications ???Medication ???Instructions ???Recorded ???Confirmed ???Type loaqklcl-gto-Yh-FA 1 mg 1 tab PO DAILY 08/09/22 05/07/25 H istory tablet metoclopramide HCl 5 mg tablet 5 mg PO QACHS #60 tabs 04/19/25 Rx (Reglan) Last Menstrual Period: 02/02/25 : No PFSH PFSH Medical History Congenital kuxsbq-vwsuner-nebws reflux Surgical History Bourg teeth removed Family History Grandmother Breast cancer Brain cancer Grandfather CVA (cerebral vascular accident) Mother Diabetes Heart failure MRSA carrier History of recurrent miscarriages Father Hypertension Social History adopted: No household members: spouse and children housing: house number of children: 1 current occupation: [employer] current occupational exposures/hazards: No pets and animals: [...] 3-4 times per week duration: 15-30 minutes/day kalpana/yazidi: Sabianism seatbelt use: always do you feel safe at home: Yes 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 Date Name GA/Weeks Outcome Route Bth Weight Gen Labor Lgth Anesthesia Del Locatn Provider FOB 10/11/18 Chemical 4 spontaneous 03/30/23 Amanda 39 live - full term vacuum 6lbs 1oz Female epidural [facility] Delivery Date: 03/30/23 Last Updated by: [...] Negative 1 (more content not included)... Normal [facility] Syphilis Antibodieson 2024 Syphilis Abs Non-Reactive Normal Nonreactive [facility] Comment on above: Performed By: #### L 400.0001, M100.678, M100.2200 #### [facility] [address] [place], [address] Type AND Screenon 05-07-2025 Ab SCREEN GEL Negative Normal [facility] Comment on above: Order Comment: PN Performed By: #### L 400.0001, M100.678, M100.2200 #### [facility] [address] [place], [address] Chlamydia/GC CHICHO aptimaon CHLAMY,NUC ACID Negative Normal Negative [facility] Comment on above: Performed By: #### L 100.0100 #### [facility] [address] [place], [address] GC BY NUC ACID Negative Normal Negative [facility] Comment on above: Result Comment: Perf ormed at: =G - [facility] [address] [id number] Dental Laboratory Manager: Rubi Snow MD, Phone: [phone] Performed By: #### L 100.0100 #### [facility] [address] [place], [address] PAP I-G w/rfx hrHPV-Aptimaon 04-12-2025 ADEQ Comment Normal . [facility] Comment on above: Order Comment: TRA Castañeda. PREVIOUS SPECIMEN REJECTED DUE TO CLOTTED SPECIMEN. 01/02/251948 Result Comment: Sati sfactory for evaluation. Endocervical and/or squamous metaplastic cells (endocervical component) are present. Performed By: #### L 100.0100 #### [facility] [address] [place], [address] COMM . Normal . [facility] Comment on above: Order Comment: REDRA W. PREVIOUS SPECIMEN REJECTED DUE TO CLOTTED SPECIMEN. 01/02/251948 Performed By: #### L 100.0100 #### [facility] [address] [place], [address] COMMENT Comment Normal . [facility] Comment on above: Order Comment: REDRA W. PREVIOUS SPECIMEN REJECTED DUE TO CLOTTED SPECIMEN. 01/02/251948 Result Comment: This liquid based ThinPrep(R) pap test was screened with the use of an image guided system. Performed By: #### L 100.0100 #### [facility] [address] [place], [address] DIAG Comment Normal . [facility] Comment on above: Order Comment: REDRA W. PREVIOUS SPECIMEN REJECTED DUE TO CLOTTED SPECIMEN. 01/02/251948 Result Comment: NEGA TIVE FOR INTRAEPITHELIAL LESION OR MALIGNANCY. Performed By: #### L 100.0100 #### [facility] [address] [place], [address] HPV RFLX Comment Normal . [facility] Comment on above: Order Comment: REDRA W. PREVIOUS SPECIMEN REJECTED DUE TO CLOTTED SPECIMEN. 01/02/251948 Result Comment: The HPV DNA reflex criteria were not met with this specimen result therefore, no HPV testing was performed. Performed at: [address] [id number] Dental Laboratory Manager: Rubi Snow MD, Phone: [phone] Performed By: #### L 100.0100 #### [facility] [address] [place], [address] PAPSMR Comment Normal . [facility] Comment on above: Order Comment: REDRA [...] occur. Performed By: #### L 100.0100 #### [facility] [address] [place], [address] PERFORM Comment Normal . [facility] Comment on above: Order Comment: MEL W. PREVIOUS SPECIMEN REJECTED DUE TO CLOTTED SPECIMEN. 01/02/251948 Result Comment: Delores Lombardo, Public Relations Senior Associate (ASCP) Performed By: #### L 100.0100 #### [facility] [address] [place], [address] Urine Cultureon 04-11-2025 [facility] Mixed Gram Positive Organisms [place] Count 80,000-100,000 MIXC Mixed contaminants. Submit a new specimen if indicated. Normal [facility] Comment on above: Performed By: #### L 100.0100 #### [facility] [address] [place], [address] Psychiatric Aide Office Visit Reporton 04-09-2025 Psychiatric Aide Office Visit Report [facility]'s [address], [address] [place] [address] OFFICE VISIT Date of Service: 04/09/25 MR#: [id number] Acct: [id number] Name: LUZ OLIVEIRA Rep #: 75 [...] *NEW* NOB LMP 02/02, KIMO 11/09 per Body Service Team Member Required: No Is patient in pain?: Yes (cramping with urination) Allergies escitalopram (From Lexapro) Adverse Reaction (Severe, Verified 04/09/25 10:39) SUICIDAL citalopram hydrobromide (From Celexa) Adverse Reaction (Verified 04/09/25 10:39) Other Medications ???Medication ???Instructions ???Recorded ???Confirmed ???Type ugkjmhrm-ucf-Dp-FA 1 mg 1 tab PO DAILY 08/09/22 04/09/25 H istory tablet Last Menstrual Period: 02/02/25 Zika: Zika virus screening: Negative : No PFSH PFSH Medical History (Updated 04/09/25 @ 10:50 by Remedios Wong) Congenital zxmkwd-qzzbhcs-uvqov reflux Surgical History Bourg teeth removed Family History Grandmother Breast cancer Brain cancer Grandfather CVA (cerebral vascular accident) Mother Diabetes Heart failure MRSA carrier History of recurrent miscarriages Father Hypertension Social History adopted: No household members: spouse and children housing: house number of children: 1 current occupation: [employer] current occupational exposures/hazards: No pets and animals: [...] 3-4 times per week duration: 15-30 minutes/day kalpana/yazidi: Sabianism seatbelt use: always do you feel safe at home: Yes 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 Normal [facility] Protein+Creatinine Ratio,Uri neon 04-09-2025 PROT:CRE RATIO 58 mg/g CRE Normal 0-200 [facility] Comment on above: Performed By: #### L 100.0100 #### [facility] [address] [place], [address] Protein (U) [Mass/Vol] 15.6 mg/dL High 0.0-12.0 [facility] Comment on above: Performed By: #### L 100.0100 #### [facility] [address] [place], [address] Transvaginal w/Preg USon Transvaginal w/Preg US [facility] [address] [place] [address] Transvaginal w/Preg US MR#: [id number] Acct: [id number] Name: LUZ OLIVEIRA Rep #: [id number] : 2000 F 24 From: Maxwell Ponce MD PCP: Care Physician,No Primary Status: REG CLI Study: Transvaginal w/Preg US Date of Exam: 03/15/25 Exam# [id number] Ordering Dr: Rmeedios Garcia UNDERGROUND ELECTRICIAN UNDERGROUND ELECTRICIAN -C PROCEDURE: TRANSVAGINAL W/PREG US 03/15/2025 REASON [...] follow-up. 2. Small perigestational hemorrhage. Reading Location: [id number] CC: JARAD Garcia; No Primary Care Physician Pipe Bender: Signed Normal [facility] hCG Titer Quant., Serumon HCG QUANT. 7025 mIU/mL High <9 non-preg [facility] Comment on above: Result Comment: Gest ational Age 0.2-1 Week: 5-50 mIU/mL 1-2 Weeks: 50-500 mIU/mL 2-3 Weeks: 100-5000 mIU/mL 3-4 Weeks: 500-10,000 mIU/mL 4-5 Weeks:1000-50,000 mIU/mL 5-6 Weeks: 10,000-100,000 mIU/mL 6-8 Weeks: 15,000-200,000 mIU/mL 2-3 Months:10,000-100,000 mIU/mL Performed By: #### L 100.0100 #### [facility] [address] [place], [address] Office Visit Reporton 2024 Office Visit Report [facility] [address] [place] [address] OFFICE VISIT Date of Service: 03/13/25 MR#: [id number] Acct: [id number] Patient: LUZ OLIVEIRA Rep #: [id number] : 2000 Provider: JARAD moctezuma Age/Sex: 24/F Location: [facility] Status: Signed Intake Vital Signs 01/02/25 18:31 03/13/25 11:49 Height 5 ft 1 in 5 ft 1 in Weight: 200 lb 6 oz BMI 37.8 BP 118/72 Intake Visit Reasons: Pre New OB, Confirm preg, Vitals Body Service Team Member Required: No Is patient in pain?: No Allergies escitalopram (From Lexapro) Adverse Reaction (Severe, Verified 03/13/25 11:12) SUICIDAL citalopram hydrobromide (From Celexa) Adverse Reaction (Verified 03/13/25 11:12) Other Medications ???Medication ???Instructions ???Recorded ???Confirmed ???Type gxikdrdx-nqu-Hl-FA 1 mg 1 tab PO DAILY 08/09/22 [...] Pt with C/O spotting since last night. [facility] notified in office. HcG and TV [...] Acute (9) Autism: Status: Acute (10) Congenital gxevoe-lzlhten-cxxhk reflux: Status: Acute Comment: Recurrent UTI's and Kidney stones Orders: Orders hCG Titer Quant., Serum Today JARAD Lee NP O20.9 - Hemorrhage [...] unspecified, unspecified trimester Hepatitis C Antibody 04/09/25 JARAD Lee NP O09.90 - Supervision [...] unspecified, unspecified trimester Chlamydia/GC CHICHO aptima 04/09/25 JARAD Lee NP O09.90 - Supervision of high risk , unspecified, unspecified trimester HIV 04/09/25 JARAD Lee NP O09.90 - Supervision of high risk , unspecified, unspecified trimester Hemoglobin A1c 04/09/25 JARAD Lee NP O09.90 - Supervision of high risk , unspecified, unspecified trimester, O99.210 - Obesity complicating , unspecified trimester PAP I-G w/rfx hrHPV-Aptima 04/09/25 JARAD Lee NP Z12.4 - Encounter for screening for malignant neoplasm of cervix Comprehensive Metabolic Profil 04/09/25 JARAD Lee NP O09.90 - Supervision of high risk , unspecified, unspecified trimester, Z87.59 - Personal history of other complications of , childbirth and the puerperium Protein+Creatinine Ratio,Urine 04/09/25 JARAD Lee NP O09.90 - Supervision of high risk , unspecified, unspecified trimester, Z87.59 - Personal history of other complications of , childbirth and the puerperium Clinical Quality Measures Falls Risk Screening/Assistive Devices Have you fallen in the past year?: No 03/13/25 1157 (more content not included)... Normal [facility] hCG Titer Quant., Serumon HCG QUANT. 3759 mIU/mL High <9 non-preg [facility] Comment on above: Result Comment: Gest ational Age 0.2-1 Week: 5-50 mIU/mL 1-2 Weeks: 50-500 mIU/mL 2-3 Weeks: 100-5000 mIU/mL 3-4 Weeks: 500-10,000 mIU/mL 4-5 Weeks:1000-50,000 mIU/mL 5-6 Weeks: 10,000-100,000 mIU/mL 6-8 Weeks: 15,000-200,000 mIU/mL 2-3 Months:10,000-100,000 mIU/mL Performed By: #### L 400.0001, M100.678, M100.2200 #### [facility] [address] [place], [address] Culture, Blood (WB)on 2024 CUB Blood cultures x2, from two different sites No growth in 5 days. Normal [facility] Comment on above: Performed By: #### L 100.0100 #### [facility] [address] [facility] [place], [address] Urine Cultureon 01-04-2025 URC Presumptive E. coli [place] Count 25,000-50,000 Presumptive E. coli: REACTION Ampicillin [...] TMP SMX Islt BRANDI <=20 S Normal [facility] Comment on above: Performed By: #### L 400.0001, M100.678, M100.2200 #### [facility] [address] [place], [address] Abdomen/Pelvis W IV Cont ONL Yon 01-02-2025 Abdomen/Pelvis W IV Cont ONLY [facility] Imaging Services [address] [place], [place] [address] Abdomen/Pelvis W IV Cont ONLY MR#: [id number] Acct: [id number] Name: LUZ OLIVEIRA Rep #: [id number] : 2000 F 24 From: Yari Reyes nd, MD PCP: Care Physician,No Primary Status: REG ER Study: Abdomen/Pelvis W IV Cont ONLY Date of Exam: Exam# [id number] Ordering Dr: Mendez Gardner DO PROCEDURE: ABDOMEN/PELVIS [...] recommended. 3. Diffuse hepatic steatosis. Reading Location: [facility] CC: Dr. Mendez Gardner DO; No Primary Care Physician Pipe Bender: Signed Normal [facility] CBC W/Diff, Automatedon 12-10 Absolute Lymph 0.64 X10 3/uL Low 0.83-4.51 [facility] Comment on above: Order Comment: REDRA W. PREVIOUS SPECIMEN REJECTED DUE TO CLOTTED SPECIMEN. 01/02/251948 Performed By: #### L 100.0100 #### [facility] [address] [place], [address] Absolute Neut 9.4 X10 3/uL High 2.0-7.7 [facility] Comment on above: Order Comment: REDRA W. PREVIOUS SPECIMEN REJECTED DUE TO CLOTTED SPECIMEN. 01/02/251948 Performed By: #### L 100.0100 #### [facility] [address] [place], [address] Basophils/100 WBC (Bld) 0.1 % Normal 0-1 [facility] Comment on above: Order Comment: REDRA W. PREVIOUS SPECIMEN REJECTED DUE TO CLOTTED SPECIMEN. 01/02/251948 Performed By: #### L 100.0100 #### [facility] [address] [place], [address] Eosinophils/100 WBC (Bld) 0.0 % Normal 0-5 [facility] Comment on above: Order Comment: REDRA W. PREVIOUS SPECIMEN REJECTED DUE TO CLOTTED SPECIMEN. 01/02/251948 Performed By: #### L 100.0100 #### [facility] [address] [place], [address] Erythrocyte distribution width (RBC) [Ratio] 12.4 % Normal 11.6-14.6 [facility] Comment on above: Order Comment: REDRA W. PREVIOUS SPECIMEN REJECTED DUE TO CLOTTED SPECIMEN. 01/02/251948 Performed By: #### L 100.0100 #### [facility] [address] [place], [address] Hematocrit (Bld) [Volume fraction] 41.9 % Normal 37-47 [facility] Comment on above: Order Comment: REDRA W. PREVIOUS SPECIMEN REJECTED DUE TO CLOTTED SPECIMEN. 01/02/251948 Performed By: #### L 100.0100 #### [facility] [address] [place], [address] Hemoglobin (Bld) [Mass/Vol] 14.6 g/dL Normal 12.0-15.0 [facility] Comment on above: Order Comment: REDRA W. PREVIOUS SPECIMEN REJECTED DUE TO CLOTTED SPECIMEN. 01/02/251948 Performed By: #### L 100.0100 #### [facility] [address] [place], [address] IG% 0.600 Normal 0.0-0.9 [facility] Comment on above: Order Comment: REDRA W. PREVIOUS SPECIMEN REJECTED DUE TO CLOTTED SPECIMEN. 01/02/251948 Result Comment: IG% - Immature Granulocytes (promyelocytes, myelocytes and metamyelocytes) > 1% indicates that a LEFT SHIFT is Present. Performed By: #### L 100.0100 #### [facility] [address] [place], [address] Lymphocytes/100 WBC (Bld) 5.9 % Low 19-41 [facility] Comment on above: Order Comment: REDRA W. PREVIOUS SPECIMEN REJECTED DUE TO CLOTTED SPECIMEN. 01/02/251948 Performed By: #### L 100.0100 #### [facility] [address] [place], [address] MCH (RBC) [Entitic mass] 30.8 pg Normal 27.0-32.0 [facility] Comment on above: Order Comment: REDRA W. PREVIOUS SPECIMEN REJECTED DUE TO CLOTTED SPECIMEN. 01/02/251948 Performed By: #### L 100.0100 #### [facility] [address] [place], [address] MCHC (RBC) [Mass/Vol] 34.8 g/dL Normal 32-36 [facility] Comment on above: Order Comment: REDRA W. PREVIOUS SPECIMEN REJECTED DUE TO CLOTTED SPECIMEN. 01/02/251948 Performed By: #### L 100.0100 #### [facility] [address] [place], [address] MCV (RBC) [Entitic vol] 88.4 fL Normal 81-99 [facility] Comment on above: Order Comment: REDRA W. PREVIOUS SPECIMEN REJECTED DUE TO CLOTTED SPECIMEN. 01/02/251948 Performed By: #### L 100.0100 #### [facility] [address] [place], [address] Monocytes/100 WBC (Bld) 5.9 % Normal 0-10 [facility] Comment on above: Order Comment: REDRA W. PREVIOUS SPECIMEN REJECTED DUE TO CLOTTED SPECIMEN. 01/02/251948 Performed By: #### L 100.0100 #### [facility] [address] [place], [address] Neutrophils/100 WBC (Bld) 87.5 % High 47-70 [facility] Comment on above: Order Comment: REDRA W. PREVIOUS SPECIMEN REJECTED DUE TO CLOTTED SPECIMEN. 01/02/251948 Performed By: #### L 100.0100 #### [facility] [address] [place], [address] Nucleated RBC (Bld) [#/Vol] 0 10*3/uL Normal 0-5 [facility] Comment on above: Order Comment: REDRA W. PREVIOUS SPECIMEN REJECTED DUE TO CLOTTED SPECIMEN. 01/02/251948 Performed By: #### L 100.0100 #### [facility] [address] [place], [address] Platelet mean volume (Bld) [Entitic vol] 10.2 fL Normal 6.2-12.0 [facility] Comment on above: Order Comment: REDRA W. PREVIOUS SPECIMEN REJECTED DUE TO CLOTTED SPECIMEN. 01/02/251948 Performed By: #### L 100.0100 #### [facility] [address] [place], [address] Platelets (Bld) [#/Vol] 188 10*3/uL Normal 150-450 [facility] Comment on above: Order Comment: REDRA W. PREVIOUS SPECIMEN REJECTED DUE TO CLOTTED SPECIMEN. 01/02/251948 Performed By: #### L 100.0100 #### [facility] [address] [place], [address] RBC (Bld) [#/Vol] 4.74 10*6/uL Normal 4.2-5.4 [facility] Comment on above: Order Comment: REDRA W. PREVIOUS SPECIMEN REJECTED DUE TO CLOTTED SPECIMEN. 01/02/251948 Performed By: #### L 100.0100 #### [facility] [address] [place], [address] RDW SD 40.1 fl Normal 35.1-43.9 [facility] Comment on above: Order Comment: REDRA W. PREVIOUS SPECIMEN REJECTED DUE TO CLOTTED SPECIMEN. 01/02/251948 Performed By: #### L 100.0100 #### [facility] [address] [place], [address] WBC (Bld) [#/Vol] 10.8 10*3/uL Normal 4.4-11.0 [facility] Comment on above: Order Comment: REDRA W. PREVIOUS SPECIMEN REJECTED DUE TO CLOTTED SPECIMEN. 01/02/251948 Performed By: #### L 100.0100 #### [facility] [address] [place], [address] Absolute Neut Normal 2.0-7.7 [facility] Comment on above: Result Comment: This specimen has been REJECTED due to Laboratory criteria: Clotted. ED-ELVIN has been notified of need of recollection. 01/02/251947 Performed By: #### L 100.0100, L500.4050 #### [facility] [address] [place], [address] HCT Normal 37-47 [facility] Comment on above: Result Comment: This specimen has been REJECTED due to Laboratory criteria: Clotted. ED-ELVIN has been notified of need of recollection. 01/02/251947 Performed By: #### L 100.0100, L500.4050 #### [facility] [address] [place], [address] HGB Normal 12.0-15.0 [facility] Comment on above: Result Comment: This specimen has been REJECTED due to Laboratory criteria: Clotted. ED-ELVIN has been notified of need of recollection. 01/02/251947 Performed By: #### L 100.0100, L500.4050 #### [facility] [address] [place], [address] MCH Normal 27.0-32.0 [facility] Comment on above: Result Comment: This specimen has been REJECTED due to Laboratory criteria: Clotted. ED-ELVIN has been notified of need of recollection. 01/02/251947 Performed By: #### L 100.0100, L500.4050 #### [facility] [address] [place], [address] MCHC Normal 32-36 [facility] Comment on above: Result Comment: This specimen has been REJECTED due to Laboratory criteria: Clotted. ED-ELVIN has been notified of need of recollection. 01/02/251947 Performed By: #### L 100.0100, L500.4050 #### [facility] [address] [place], [address] MCV Normal 81-99 [facility] Comment on above: Result Comment: This specimen has been REJECTED due to Laboratory criteria: Clotted. ED-ELVIN has been notified of need of recollection. 01/02/251947 Performed By: #### L 100.0100, L500.4050 #### [facility] [address] [place], [address] NEUT% Normal 47-70 [facility] Comment on above: Result Comment: This specimen has been REJECTED due to Laboratory criteria: Clotted. ED-ELVIN has been notified of need of recollection. 01/02/251947 Performed By: #### L 100.0100, L500.4050 #### [facility] [address] [place], [address] PLT Normal 150-450 [facility] Comment on above: Result Comment: This specimen has been REJECTED due to Laboratory criteria: Clotted. ED-ELVIN has been notified of need of recollection. 01/02/251947 Performed By: #### L 100.0100, L500.4050 #### [facility] [address] [place], [address] RBC Normal 4.2-5.4 [facility] Comment on above: Result Comment: This specimen has been REJECTED due to Laboratory criteria: Clotted. ED-ELVIN has been notified of need of recollection. 01/02/251947 Performed By: #### L 100.0100, L500.4050 #### [facility] [address] [place], [address] RDW CV Normal 11.6-14.6 [facility] Comment on above: Result Comment: This specimen has been REJECTED due to Laboratory criteria: Clotted. ED-ELVIN has been notified of need of recollection. 01/02/251947 Performed By: #### L 100.0100, L500.4050 #### [facility] [address] [place], [address] RDW SD Normal 35.1-43.9 [facility] Comment on above: Result Comment: This specimen has been REJECTED due to Laboratory criteria: Clotted. ED-ELVIN has been notified of need of recollection. 01/02/251947 Performed By: #### L 100.0100, L500.4050 #### [facility] [address] [place], [address] WBC Normal 4.4-11.0 [facility] Comment on above: Result Comment: This specimen has been REJECTED due to Laboratory criteria: Clotted. ED-ELVIN has been notified of need of recollection. 01/02/251947 Performed By: #### L 100.0100, L500.4050 #### [facility] [address] [place], [address] Comprehensive Metabolic Prof ilon 01-02-2025 Albumin [Mass/Vol] 4.5 g/dL Normal 3.5-5.0 [facility] Comment on above: Performed By: #### L 100.0100, L500.4050 #### [facility] [address] [place], [address] Albumin/Globulin [Mass ratio] 1.3 {ratio} Normal 0.9-2.4 [facility] Comment on above: Performed By: #### L 100.0100, L500.4050 #### [facility] [address] [place], [address] ALK PHOS 69 U/L Normal 35-104 [facility] Comment on above: Performed By: #### L 100.0100, L500.4050 #### [facility] [address] [place], [address] ALT [Catalytic activity/Vol] 50 U/L High <=34 [facility] Comment on above: Performed By: #### L 100.0100, L500.4050 #### [facility] [address] [place], [address] AST [Catalytic activity/Vol] 28 U/L Normal <=31 [facility] Comment on above: Performed By: #### L 100.0100, L500.4050 #### [facility] [address] [place], [address] Bilirubin [Mass/Vol] 0.96 mg/dL Normal 0.00-1.30 [facility] Comment on above: Performed By: #### L 100.0100, L500.4050 #### [facility] [address] [place], [address] BUN/CRE 13.3 RATIO Normal 10-20 [facility] Comment on above: Performed By: #### L 100.0100, L500.4050 #### [facility] [address] [place], [address] Calcium [Mass/Vol] 9.6 mg/dL Normal 7.6-11.0 [facility] Comment on above: Performed By: #### L 100.0100, L500.4050 #### [facility] [address] [place], [address] Chloride [Moles/Vol] 102 mmol/L Normal 98-108 [facility] Comment on above: Performed By: #### L 100.0100, L500.4050 #### [facility] [address] [place], [address] CO2 [Moles/Vol] 23.0 mmol/L Normal 21.0-32.0 [facility] Comment on above: Performed By: #### L 100.0100, L500.4050 #### [facility] [address] [place], [address] Creatinine [Mass/Vol] 0.93 mg/dL Normal 0.70-1.20 [facility] Comment on above: Performed By: #### L 100.0100, L500.4050 #### [facility] [address] [place], [address] ECRCL 94.15 ml/min Normal 50-250 [facility] Comment on above: Performed By: #### L 100.0100, L500.4050 #### [facility] [address] [place], [address] GAP 13 Normal 5-15 [facility] Comment on above: Performed By: #### L 100.0100, L500.4050 #### [facility] [address] [place], [address] GFR/1.73 sq M.predicted among non-blacks MDRD (S/P/Bld) [Vol rate/Area] 87 mL/min/{1.73_m2} Normal >60 [facility] Comment on above: Result Comment: mL/m in/1.73m2 CKD-EPI Creatinine Equation (2020) Performed By: #### L 100.0100, L500.4050 #### [facility] [address] [place], [address] Globulin (S) [Mass/Vol] 3.4 g/dL Normal 2.2-4.2 [facility] Comment on above: Performed By: #### L 100.0100, L500.4050 #### [facility] [address] [place], [address] Glucose [Mass/Vol] 109 mg/dL High 70-99 [facility] Comment on above: Performed By: #### L 100.0100, L500.4050 #### [facility] [address] [place], [address] Potassium [Moles/Vol] 3.4 mmol/L Normal 3.3-5.1 [facility] Comment on above: Performed By: #### L 100.0100, L500.4050 #### [facility] [address] [place], [address] Sodium [Moles/Vol] 138 mmol/L Normal 133-145 [facility] Comment on above: Performed By: #### L 100.0100, L500.4050 #### [facility] [address] [place], [address] T PROT 7.9 g/dL Normal 5.9-8.4 [facility] Comment on above: Performed By: #### L 100.0100, L500.4050 #### [facility] [address] [place], [address] Urea nitrogen [Mass/Vol] 12 mg/dL Normal 4-19 [facility] Comment on above: Performed By: #### L 100.0100, L500.4050 #### [facility] [address] [place], [address] Emergency Department Summary on 01-02-2025 Emergency Department Summary [facility] Medical Records Department [address] [place] [address] Emergency Department Summary 01/02/25 MR#: [id number] Acct: [id number] Name: LUZ OLIVEIRA Rep #: [id number] : 2000 24 From: Mendez Gardner DO PCP: Care Physician,No Primary Status:REG ER Location: ED HPI History of Present Illness Chief Complaint: Fever Narrative Narrative: Patient is a 24-year-old female with past medical history of "kidney problems", congenital vesicular ureteral reflux after chart review, [...] States that she tried Azo at home. [facility] Medical History Lumbar radiculopathy, acute Acute lumbar myofascial strain Blunt abdominal trauma Chest wall contusion Cervical strain, acute Concussion without loss of consciousness Crushing injury of right great toe, initial encounter Congenital jwjijz-ivrgldd-idzos reflux Home Medications ???Medication ???Instructions ???Recorded ???Last Taken ???Type tetymnih-ypm-Ne-FA 1 mg 1 tab PO DAILY 08/09/22 Unknown Hi story tablet cephalexin 500 mg capsule 500 mg PO Q6H 5 days #20 caps 12/10 03/04 Unknown Rx ondansetron 4 mg disintegrating 4 mg PO Q6H PRN nausea and 5 Unknown Rx tablet vomiting #20 tabs [...] (cerebral vascular accident) Mother Diabetes Surgical History Bourg teeth removed Social History household members: spouse [...] commands knew that she was at [facility] years 2024 Skin:, No rashes or lesions [...] Respiratory Rat (more content not included)... Normal [facility] Lactic Acidon 01-02-2025 Lactate [Moles/Vol] 1.1 mmol/L Normal 0.0-2.0 [facility] Comment on above: Order Comment: REDRA W. PREVIOUS SPECIMEN REJECTED DUE TO CLOTTED SPECIMEN. 01/02/251948 Performed By: #### L 100.0100 #### [facility] [address] [place], [place], [address] Lipaseon 01-02-2025 Lipase [Catalytic activity/Vol] 19 U/L Normal 13-75 [facility] Comment on above: Result Comment: Lisa paez note: LIPASE revised reference range effective 23. New Lipase methodology. Expected to produce lower values than the previous assay method. NEW Reference Range: 13 - 75 U/L Performed By: #### L 100.0100, L500.4050 #### [facility] [address] [place], [address] M100.678on 01-02-2025 M100.678 Pending SARS-CoV-2 (COVID 19) Negative INFLUENZA A Negative INFLUENZA B Negative RSV PCR Negative Normal [facility] Comment on above: Performed By: #### L 400.0001, M100.678, M100.2200 #### [facility] [address] [place], [address] Partial Thromboplast Timeon 01-02-2025 aPTT Coag (Bld) [Time] 33.7 s Normal 24.1-36.2 [facility] Comment on above: Performed By: #### L 100.0100 #### [facility] [address] [place], [address] ,Serum,hCG Quali.on 01-02-2025 HCG, SERUM QUAL Negative Normal [facility] Comment on above: Performed By: #### L 100.0100, L500.4050 #### [facility] [address] [place], [address] Prothrombin Time w/INRon INR Coag (PPP) [Relative time] 1.1 {INR} Normal [facility] Comment on above: Performed By: #### L 100.0100 #### [facility] [address] [place], [address] PT Coag (PPP) [Time] 14.5 s Normal 11.7-14.9 [facility] Comment on above: Performed By: #### L 100.0100 #### [facility] [address] [place], [address] Urinalysis, Completeon 01-02 EPI,SQUAMOUS 5-10 SEEN Normal 5-10 [facility] Comment on above: Order Comment: CLEAN CATCH Performed By: #### L 400.0001, M100.678, M100.2200 #### [facility] [address] [place], [address] BACTERIA 3+ /hpf Normal None Seen [facility] Comment on above: Order Comment: CLEAN CATCH Performed By: #### L 400.0001, M100.678, M100.2200 #### [facility] [address] [place], [address] RBC 5-10 SEEN Normal 0-5 [facility] Comment on above: Order Comment: CLEAN CATCH Performed By: #### L 400.0001, M100.678, M100.2200 #### [facility] [address] [place], [address] WBC >100 SEEN Normal 0-5 [facility] Comment on above: Order Comment: CLEAN CATCH Performed By: #### L 400.0001, M100.678, M100.2200 #### [facility] [address] [place], [address] Mucus Ql (Urine sed) 0 SEEN Normal [facility] [place] Comment on above: Order Comment: CLEAN CATCH Performed By: #### L 400.0001, M100.678, M100.2200 #### [facility] [address] [place], [address] XR SPINE CERVICAL AP/LATon 0 02-19-2024 XR [...] 02/19/2024 1:39:46 AM Ordering Provider: KIRSTEN Miller [facility] ([place]) B12on 10-19-2023 Cobalamin (Vitamin B12) [Mass/Vol] 279 pg/mL Normal 211-911 [facility] ([place]) Comment on above: Performed By: #### G FR, LIPID, HFP, A1C, IBC, TSH, CBC, ANEU, FT4, FERR, ADIFF, CMP, FE, VIDH, FT3 #### [address] [address] #### FOL, B12 #### [address] [address] FOLon 10-19-2023 Folate 8.29 ng/mL Normal 5.38-24.00 [facility]) Comment on above: Performed By: #### G FR, LIPID, HFP, A1C, IBC, TSH, CBC, ANEU, FT4, FERR, ADIFF, CMP, FE, VIDH, FT3 #### [address] [address] #### FOL, B12 #### [address] [address] .Auto Diffon 10-15-2023 Basophil, Absolute 0.0 10 3/mcL Normal 0.0-0.2 [facility]) Comment on above: Performed By: #### G FR, LIPID, HFP, A1C, IBC, TSH, CBC, ANEU, FT4, FERR, ADIFF, CMP, FE, VIDH, FT3 #### [address] [address] #### FOL, B12 #### [address] [address] Basophils/100 WBC (Bld) 0.2 % Normal 0.0-2.5 [facility]) Comment on above: Performed By: #### G FR, LIPID, HFP, A1C, IBC, TSH, CBC, ANEU, FT4, FERR, ADIFF, CMP, FE, VIDH, FT3 #### [address] [address] #### FOL, B12 #### [address] [address] Eosinophil, Absolute 0.0 10 3/mcL Normal 0.0-0.4 [facility] ([place]) Comment on above: Performed By: #### G FR, LIPID, HFP, A1C, IBC, TSH, CBC, ANEU, FT4, FERR, ADIFF, CMP, FE, VIDH, FT3 #### [address] [address] #### JONO, B12 #### [address] [address] Eosinophils/100 WBC (Bld) 0.6 % Normal 0.0-7.0 [facility] ([place]) Comment on above: Performed By: #### G FR, LIPID, HFP, A1C, IBC, TSH, CBC, ANEU, FT4, FERR, ADIFF, CMP, FE, VIDH, FT3 #### [address] [address] #### FOL, B12 #### [address] [address] Lymphocyte, Absolute 1.5 10 3/mcL Normal 0.8-3.9 [facility] ([place]) Comment on above: Performed By: #### G FR, LIPID, HFP, A1C, IBC, TSH, CBC, ANEU, FT4, FERR, ADIFF, CMP, FE, VIDH, FT3 #### [address] [address] #### FOL, B12 #### [address] [address] Lymphocytes/100 WBC (Bld) 23.2 % Normal 10.0-50.0 [facility] ([place]) Comment on above: Performed By: #### G FR, LIPID, HFP, A1C, IBC, TSH, CBC, ANEU, FT4, FERR, ADIFF, CMP, FE, VIDH, FT3 #### [address] [address] #### FOL, B12 #### [address] [address] Monocyte, Absolute 0.4 10 3/mcL Normal 0.2-1.0 [facility] ([place]) Comment on above: Performed By: #### G FR, LIPID, HFP, A1C, IBC, TSH, CBC, ANEU, FT4, FERR, ADIFF, CMP, FE, VIDH, FT3 #### [address] [address] #### FOL, B12 #### [address] [address] Monocytes/100 WBC (Bld) 5.6 % Normal 1.7-13.0 [facility] ([place]) Comment on above: Performed By: #### G FR, LIPID, HFP, A1C, IBC, TSH, CBC, ANEU, FT4, FERR, ADIFF, CMP, FE, VIDH, FT3 #### [address] [address] #### FOL, B12 #### [address] [address] Neutrophils/100 WBC (Bld) 70.4 % Normal 37.0-80.0 [facility] ([place]) Comment on above: Performed By: #### G FR, LIPID, HFP, A1C, IBC, TSH, CBC, ANEU, FT4, FERR, ADIFF, CMP, FE, VIDH, FT3 #### [address] [address] #### FOL, B12 #### [address] [address] .GFRon 10-15-2023 GFR Non- 73 ml/min/1.73sqm Normal [facility] ([place]) Comment on above: Result Comment: GFR Population [...] FERR, ADIFF, CMP, FE, VIDH, FT3 #### [address] [address] #### FOL, B12 #### [address] [address] GFR 89 ml/min/1.73sqm Normal [facility] ([place]) Comment on above: Result Comment: GFR Population [...] FERR, ADIFF, CMP, FE, VIDH, FT3 #### [address] [address] #### FOL, B12 #### [address] [address] .NEUABSon 10-15-2023 Neutrophil, Absolute 4.5 10 3/mcL Normal 2.9-6.2 [facility] ([place]) Comment on above: Performed By: #### G FR, LIPID, HFP, A1C, IBC, TSH, CBC, ANEU, FT4, FERR, ADIFF, CMP, FE, VIDH, FT3 #### [address] [address] #### FOL, B12 #### [address] [address] A1Con 10-15-2023 HbA1c (Bld) [Mass fraction] 4.9 % Normal 4.3-6.4 [facility] ([place]) Comment on above: Performed By: #### G FR, LIPID, HFP, A1C, IBC, TSH, CBC, ANEU, FT4, FERR, ADIFF, CMP, FE, VIDH, FT3 #### [address] [address] #### FOL, B12 #### [place] [address] CBCon 10-15-2023 Erythrocyte distribution width (RBC) [Ratio] 14.1 % Normal 11.5-14.5 [facility] ([place]) Comment on above: Performed By: #### G FR, LIPID, HFP, A1C, IBC, TSH, CBC, ANEU, FT4, FERR, ADIFF, CMP, FE, VIDH, FT3 #### [address] [address] #### FOL, B12 #### [place] [address] Hematocrit (Bld) [Volume fraction] 42.4 % Normal 37.0-47.0 [facility] ([place]) Comment on above: Performed By: #### G FR, LIPID, HFP, A1C, IBC, TSH, CBC, ANEU, FT4, FERR, ADIFF, CMP, FE, VIDH, FT3 #### [address] [address] #### FOL, B12 #### [place] [address] Hgb 14.5 G/dL Normal 12.0-16.0 [facility] ([place]) Comment on above: Performed By: #### G FR, LIPID, HFP, A1C, IBC, TSH, CBC, ANEU, FT4, FERR, ADIFF, CMP, FE, VIDH, FT3 #### [address] [address] #### FOL, B12 #### [address] [address] MCH (RBC) [Entitic mass] 30.8 pg Normal 27.0-31.2 [facility] ([place]) Comment on above: Performed By: #### G FR, LIPID, HFP, A1C, IBC, TSH, CBC, ANEU, FT4, FERR, ADIFF, CMP, FE, VIDH, FT3 #### [address] [address] #### FOL, B12 #### [address] [address] MCHC 34.2 G/dL Normal 33.0-37.0 [facility] ([place]) Comment on above: Performed By: #### G FR, LIPID, HFP, A1C, IBC, TSH, CBC, ANEU, FT4, FERR, ADIFF, CMP, FE, VIDH, FT3 #### [address] [address] #### FOL, B12 #### [address] [address] MCV (RBC) [Entitic vol] 90.3 fL Normal 80.0-94.0 [facility] ([place]) Comment on above: Performed By: #### G FR, LIPID, HFP, A1C, IBC, TSH, CBC, ANEU, FT4, FERR, ADIFF, CMP, FE, VIDH, FT3 #### [address] [address] #### FOL, B12 #### [address] [address] Platelet 237 10 3/mcL Normal 130-400 [facility] ([place]) Comment on above: Performed By: #### G FR, LIPID, HFP, A1C, IBC, TSH, CBC, ANEU, FT4, FERR, ADIFF, CMP, FE, VIDH, FT3 #### [address] [address] #### FOL, B12 #### [address] [address] Platelet mean volume (Bld) [Entitic vol] 8.6 fL Normal 7.4-10.4 [facility] ([place]) Comment on above: Performed By: #### G FR, LIPID, HFP, A1C, IBC, TSH, CBC, ANEU, FT4, FERR, ADIFF, CMP, FE, VIDH, FT3 #### [address] [address] #### FOL, B12 #### [address] [address] RBC 4.69 10 6/mcL Normal 4.20-5.40 [facility] ([place]) Comment on above: Performed By: #### G FR, LIPID, HFP, A1C, IBC, TSH, CBC, ANEU, FT4, FERR, ADIFF, CMP, FE, VIDH, FT3 #### [address] [address] #### FOL, B12 #### [address] [address] WBC 6.4 10 3/mcL Normal 4.6-10.8 [facility] ([place]) Comment on above: Performed By: #### G FR, LIPID, HFP, A1C, IBC, TSH, CBC, ANEU, FT4, FERR, ADIFF, CMP, FE, VIDH, FT3 #### [address] [address] #### FOL, B12 #### [place] [address] CMPon 10-15-2023 BUN/Creatinine Ratio 17 ratio Normal 7-27 [facility] ([place]) Comment on above: Performed By: #### G FR, LIPID, HFP, A1C, IBC, TSH, CBC, ANEU, FT4, FERR, ADIFF, CMP, FE, VIDH, FT3 #### [address] [address] #### FOL, B12 #### [address] [address] Calcium [Mass/Vol] 9.5 mg/dL Normal 8.4-10.2 [facility] ([place]) Comment on above: Performed By: #### G FR, LIPID, HFP, A1C, IBC, TSH, CBC, ANEU, FT4, FERR, ADIFF, CMP, FE, VIDH, FT3 #### [address] [address] #### FOL, B12 #### [address] [address] Chloride [Moles/Vol] 101 mmol/L Normal 98-107 [facility] ([place]) Comment on above: Performed By: #### G FR, LIPID, HFP, A1C, IBC, TSH, CBC, ANEU, FT4, FERR, ADIFF, CMP, FE, VIDH, FT3 #### [place] [address] #### FOL, B12 #### [address] [address] CO2 [Moles/Vol] 27 mmol/L Normal 22-29 [facility] ([place]) Comment on above: Performed By: #### G FR, LIPID, HFP, A1C, IBC, TSH, CBC, ANEU, FT4, FERR, ADIFF, CMP, FE, VIDH, FT3 #### [place] [address] #### FOL, B12 #### [address] [address] Creatinine [Mass/Vol] 0.94 mg/dL Normal 0.55-1.02 [facility] ([place]) Comment on above: Performed By: #### G FR, LIPID, HFP, A1C, IBC, TSH, CBC, ANEU, FT4, FERR, ADIFF, CMP, FE, VIDH, FT3 #### [place] [address] #### FOL, B12 #### [address] [address] Electrolyte Balance 13.0 mEq/L Normal 4.0-15.0 [facility] ([place]) Comment on above: Performed By: #### G FR, LIPID, HFP, A1C, IBC, TSH, CBC, ANEU, FT4, FERR, ADIFF, CMP, FE, VIDH, FT3 #### [address] [address] #### FOL, B12 #### [address] [address] Glucose [Mass/Vol] 92 mg/dL Normal 70-105 [facility] ([place]) Comment on above: Performed By: #### G FR, LIPID, HFP, A1C, IBC, TSH, CBC, ANEU, FT4, FERR, ADIFF, CMP, FE, VIDH, FT3 #### [address] [address] #### FOL, B12 #### [address] [address] Potassium [Moles/Vol] 4.2 mmol/L Normal 3.5-5.1 [facility] ([place]) Comment on above: Performed By: #### G FR, LIPID, HFP, A1C, IBC, TSH, CBC, ANEU, FT4, FERR, ADIFF, CMP, FE, VIDH, FT3 #### [address] [address] #### FOL, B12 #### [address] [address] Sodium [Moles/Vol] 141 mmol/L Normal 136-145 [facility] ([place]) Comment on above: Performed By: #### G FR, LIPID, HFP, A1C, IBC, TSH, CBC, ANEU, FT4, FERR, ADIFF, CMP, FE, VIDH, FT3 #### [address] [address] #### FOL, B12 #### [address] [address] Urea nitrogen [Mass/Vol] 16 mg/dL Normal 7-18 [facility] ([place]) Comment on above: Performed By: #### G FR, LIPID, HFP, A1C, IBC, TSH, CBC, ANEU, FT4, FERR, ADIFF, CMP, FE, VIDH, FT3 #### [address] [address] #### FOL, B12 #### [address] [address] FEon 10-15-2023 Iron [Mass/Vol] 141 ug/dL Normal 50-170 [facility] ([place]) Comment on above: Performed By: #### G FR, LIPID, HFP, A1C, IBC, TSH, CBC, ANEU, FT4, FERR, ADIFF, CMP, FE, VIDH, FT3 #### [address] [address] #### FOL, B12 #### [address] [address] Heidi 10-15-2023 Ferritin [Mass/Vol] 60.0 ng/mL Normal 8.0-252.0 [facility] ([place]) Comment on above: Performed By: #### G FR, LIPID, HFP, A1C, IBC, TSH, CBC, ANEU, FT4, FERR, ADIFF, CMP, FE, VIDH, FT3 #### [address] [address] #### FOL, B12 #### [address] [address] FT3on 10-15-2023 Free T3 [Mass/Vol] 3.26 pg/mL Normal 2.30-4.00 [facility] ([place]) Comment on above: Performed By: #### G FR, LIPID, HFP, A1C, IBC, TSH, CBC, ANEU, FT4, FERR, ADIFF, CMP, FE, VIDH, FT3 #### [address] [address] #### FOL, B12 #### [address] [address] FT4on 10-15-2023 Free T4 [Mass/Vol] 1.15 ng/dL Normal 0.76-1.46 [facility] ([place]) Comment on above: Performed By: #### G FR, LIPID, HFP, A1C, IBC, TSH, CBC, ANEU, FT4, FERR, ADIFF, CMP, FE, VIDH, FT3 #### [address] [address] #### FOL, B12 #### [address] [address] HFPon 10-15-2023 Bili Indirect 0.4 mg/dL Normal [facility] ([place]) Comment on above: Performed By: #### G FR, LIPID, HFP, A1C, IBC, TSH, CBC, ANEU, FT4, FERR, ADIFF, CMP, FE, VIDH, FT3 #### [address] [address] #### FOL, B12 #### [place] [address] Albumin Level 4.0 G/dL Normal 3.5-5.0 [facility] ([place]) Comment on above: Performed By: #### G FR, LIPID, HFP, A1C, IBC, TSH, CBC, ANEU, FT4, FERR, ADIFF, CMP, FE, VIDH, FT3 #### [address] [address] #### FOL, B12 #### [place] [address] Albumin/Globulin [Mass ratio] 1.1 {ratio} Normal 1.1-2.5 [facility] ([place]) Comment on above: Performed By: #### G FR, LIPID, HFP, A1C, IBC, TSH, CBC, ANEU, FT4, FERR, ADIFF, CMP, FE, VIDH, FT3 #### [address] [address] #### FOL, B12 #### [address] [address] ALP [Catalytic activity/Vol] 91 U/L Normal 40-135 [facility] ([place]) Comment on above: Performed By: #### G FR, LIPID, HFP, A1C, IBC, TSH, CBC, ANEU, FT4, FERR, ADIFF, CMP, FE, VIDH, FT3 #### [address] [address] #### FOL, B12 #### [address] [address] ALT [Catalytic activity/Vol] 25 U/L Normal 14-59 [facility] ([place]) Comment on above: Performed By: #### G FR, LIPID, HFP, A1C, IBC, TSH, CBC, ANEU, FT4, FERR, ADIFF, CMP, FE, VIDH, FT3 #### [address] [address] #### FOL, B12 #### [place] [address] AST [Catalytic activity/Vol] 15 U/L Normal 10-40 [facility] ([place]) Comment on above: Performed By: #### G FR, LIPID, HFP, A1C, IBC, TSH, CBC, ANEU, FT4, FERR, ADIFF, CMP, FE, VIDH, FT3 #### [place] [address] #### FOL, B12 #### [place] [address] Bili Direct 0.2 mg/dL Normal 0.0-0.2 [facility] ([place]) Comment on above: Result Comment: Use of this assay is not recommended for patients undergoing treatment with eltrombopag due to the potential for falsely elevated results. Performed By: #### G FR, LIPID, HFP, A1C, IBC, TSH, CBC, ANEU, FT4, FERR, ADIFF, CMP, FE, VIDH, FT3 #### [place] [address] #### FOL, B12 #### [place] [address] Bili Total 0.6 mg/dL Normal 0.2-1.0 [facility] ([place]) Comment on above: Result Comment: Use of this assay is not recommended for patients undergoing treatment with eltrombopag due to the potential for falsely elevated results. Performed By: #### G FR, LIPID, HFP, A1C, IBC, TSH, CBC, ANEU, FT4, FERR, ADIFF, CMP, FE, VIDH, FT3 #### [address] [address] #### FOL, B12 #### [place] [address] Globulin 3.7 G/dL Normal [facility] ([place]) Comment on above: Performed By: #### G FR, LIPID, HFP, A1C, IBC, TSH, CBC, ANEU, FT4, FERR, ADIFF, CMP, FE, VIDH, FT3 #### [address] [address] #### FOL, B12 #### [place] [address] Total Protein 7.7 G/dL Normal 6.4-8.2 [facility] ([place]) Comment on above: Performed By: #### G FR, LIPID, HFP, A1C, IBC, TSH, CBC, ANEU, FT4, FERR, ADIFF, CMP, FE, VIDH, FT3 #### [address] [address] #### FOL, B12 #### [place] [address] IBCon 10-15-2023 TIBC 330 mcg/dL Normal 250-450 [facility] ([place]) Comment on above: Performed By: #### G FR, LIPID, HFP, A1C, IBC, TSH, CBC, ANEU, FT4, FERR, ADIFF, CMP, FE, VIDH, FT3 #### [address] [address] #### FOL, B12 #### [place] [address] LABORATORYOrdered By: SYSTEM SYSTEM on 10-15-2023 25-hydroxyvitamin [...] 10-15-2023 Cholesterol [Mass/Vol] 172 mg/dL Normal 0-200 [facility] ([place]) Comment on above: Result Comment: Chol esterol Reference Interval: Less than 200 Desirable 200-239 Borderline high risk 240 and above High risk Performed By: #### G FR, LIPID, HFP, A1C, IBC, TSH, CBC, ANEU, FT4, FERR, ADIFF, CMP, FE, VIDH, FT3 #### [address] [address] #### FOL, B12 #### [address] [address] Cholesterol in HDL [Mass/Vol] 66 mg/dL High 40-60 [facility] ([place]) Comment on above: Performed By: #### G FR, LIPID, HFP, A1C, IBC, TSH, CBC, ANEU, FT4, FERR, ADIFF, CMP, FE, VIDH, FT3 #### [address] [address] #### FOL, B12 #### [address] [address] Cholesterol in LDL [Mass/Vol] 80 mg/dL Normal 0-130 [facility] ([place]) Comment on above: Performed By: #### G FR, LIPID, HFP, A1C, IBC, TSH, CBC, ANEU, FT4, FERR, ADIFF, CMP, FE, VIDH, FT3 #### [address] [address] #### FOL, B12 #### [address] [address] Triglyceride [Mass/Vol] 132 mg/dL Normal 0-150 [facility] ([place]) Comment on above: Result Comment: Trig lyceride Reference Interval: Less than 150 Normal 150-199 Borderline high risk 200-499 High risk 500 or higher Very high risk Performed By: #### G FR, LIPID, HFP, A1C, IBC, TSH, CBC, ANEU, FT4, FERR, ADIFF, CMP, FE, VIDH, FT3 #### [address] [address] #### FOL, B12 #### [address] [address] Laboratory - Chemistry and C hemistry - [...] 10-15-2023 TSH Qn 1.13 m[IU]/L Normal 0.36-3.74 [facility] ([place]) Comment on above: Performed By: #### G FR, LIPID, HFP, A1C, IBC, TSH, CBC, ANEU, FT4, FERR, ADIFF, CMP, FE, VIDH, FT3 #### [address] [address] #### FOL, B12 #### [place] [id number] [place] [address] UDRUGon 10-15-2023 Amphetamine (u) Negative Normal Negative [facility] ([place]) Comment on above: Performed By: #### G FR, LIPID, HFP, A1C, IBC, TSH, CBC, ANEU, FT4, FERR, ADIFF, CMP, FE, VIDH, FT3 #### [address] [address] #### FOL, B12 #### [place] [address] Barbiturate (u) Negative Normal Negative [facility] ([place]) Comment on above: Performed By: #### G FR, LIPID, HFP, A1C, IBC, TSH, CBC, ANEU, FT4, FERR, ADIFF, CMP, FE, VIDH, FT3 #### [address] [address] #### FOL, B12 #### [place] [address] Benzodiazepine (u) Negative Normal Negative [facility] ([place]) Comment on above: Performed By: #### G FR, LIPID, HFP, A1C, IBC, TSH, CBC, ANEU, FT4, FERR, ADIFF, CMP, FE, VIDH, FT3 #### [address] [address] #### FOL, B12 #### [place] [address] Cannabinoid (u) Negative Normal Negative [facility] ([place]) Comment on above: Performed By: #### G FR, LIPID, HFP, A1C, IBC, TSH, CBC, ANEU, FT4, FERR, ADIFF, CMP, FE, VIDH, FT3 #### [address] [address] #### FOL, B12 #### [place] [address] Cocaine Ql (U) Negative Normal Negative [facility] ([place]) Comment on above: Performed By: #### G FR, LIPID, HFP, A1C, IBC, TSH, CBC, ANEU, FT4, FERR, ADIFF, CMP, FE, VIDH, FT3 #### [address] [address] #### FOL, B12 #### [place] [address] Methadone Ql (U) Negative Normal Negative [facility] ([place]) Comment on above: Performed By: #### G FR, LIPID, HFP, A1C, IBC, TSH, CBC, ANEU, FT4, FERR, ADIFF, CMP, FE, VIDH, FT3 #### [address] [address] #### FOL, B12 #### [address] [address] Opiate (u) Negative Normal Negative [facility] ([place]) Comment on above: Performed By: #### G FR, LIPID, HFP, A1C, IBC, TSH, CBC, ANEU, FT4, FERR, ADIFF, CMP, FE, VIDH, FT3 #### [address] [address] #### FOL, B12 #### [place] [address] PCP (u) Negative Normal Negative [facility] ([place] Comment on above: Performed By: #### G FR, LIPID, HFP, A1C, IBC, TSH, CBC, ANEU, FT4, FERR, ADIFF, CMP, FE, VIDH, FT3 #### [place] [address] #### FOL, B12 #### [place] [address] Urine Drugs screened: See Below Normal [facility] ([place]) Comment on above: Result Comment: This drug [...] FERR, ADIFF, CMP, FE, VIDH, FT3 #### [address] [address] #### FOL, B12 #### [place] [address] VIDHon 10-15-2023 Vit. D 25-Hydroxy 12.2 ng/mL Normal [facility] ([place]) Comment on above: Result Comment: Inte rpretive Values Based on Total 25(OH) Vitamin D: Deficient <20 ng/mL Insufficient 20 - <30 ng/mL Sufficient 30-100 ng/mL Performed By: #### G FR, LIPID, HFP, A1C, IBC, TSH, CBC, ANEU, FT4, FERR, ADIFF, CMP, FE, VIDH, FT3 #### [place] [address] #### FOL, B12 #### [address] [address] .Auto Diffon 03-31-2023 Basophil, Absolute 0.0 10 3/mcL Normal 0.0-0.2 [facility] ([place]) Comment on above: Performed By: #### G FR, LIPID, HFP, A1C, IBC, TSH, CBC, ANEU, FT4, FERR, ADIFF, CMP, FE, VIDH, FT3 #### [place] [address] #### FOL, B12 #### [place] [address] Basophils/100 WBC (Bld) 0.1 % Normal 0.0-2.5 [facility] ([place]) Comment on above: Performed By: #### G FR, LIPID, HFP, A1C, IBC, TSH, CBC, ANEU, FT4, FERR, ADIFF, CMP, FE, VIDH, FT3 #### [address] [address] #### FOL, B12 #### [place] [address] Eosinophil, Absolute 0.0 10 3/mcL Normal 0.0-0.4 [facility] ([place]) Comment on above: Performed By: #### G FR, LIPID, HFP, A1C, IBC, TSH, CBC, ANEU, FT4, FERR, ADIFF, CMP, FE, VIDH, FT3 #### [place] [id number] #### FOL, B12 #### [address] [address] Eosinophils/100 WBC (Bld) 0.0 % Normal 0.0-7.0 [facility] ([place]) Comment on above: Performed By: #### G FR, LIPID, HFP, A1C, IBC, TSH, CBC, ANEU, FT4, FERR, ADIFF, CMP, FE, VIDH, FT3 #### [address] [address] #### FOL, B12 #### [address] [address] Lymphocyte, Absolute 1.2 10 3/mcL Normal 0.8-3.9 [facility] ([place]) Comment on above: Performed By: #### G FR, LIPID, HFP, A1C, IBC, TSH, CBC, ANEU, FT4, FERR, ADIFF, CMP, FE, VIDH, FT3 #### [address] [address] #### FOL, B12 #### [address] [address] Lymphocytes/100 WBC (Bld) 11.4 % Normal 10.0-50.0 [facility] ([place]) Comment on above: Performed By: #### G FR, LIPID, HFP, A1C, IBC, TSH, CBC, ANEU, FT4, FERR, ADIFF, CMP, FE, VIDH, FT3 #### [address] [address] #### FOL, B12 #### [address] [address] Monocyte, Absolute 0.8 10 3/mcL Normal 0.2-1.0 [facility] ([place]) Comment on above: Performed By: #### G FR, LIPID, HFP, A1C, IBC, TSH, CBC, ANEU, FT4, FERR, ADIFF, CMP, FE, VIDH, FT3 #### [address] [address] #### FOL, B12 #### [address] [address] Monocytes/100 WBC (Bld) 7.6 % Normal 1.7-13.0 [facility] ([place]) Comment on above: Performed By: #### G FR, LIPID, HFP, A1C, IBC, TSH, CBC, ANEU, FT4, FERR, ADIFF, CMP, FE, VIDH, FT3 #### [address] [address] #### FOL, B12 #### [address] [address] Neutrophils/100 WBC (Bld) 80.9 % High 37.0-80.0 [facility] ([place] Comment on above: Performed By: #### G FR, LIPID, HFP, A1C, IBC, TSH, CBC, ANEU, FT4, FERR, ADIFF, CMP, FE, VIDH, FT3 #### [address] [address] #### FOL, B12 #### [address] [address] .NEUABSon 03-31-2023 Neutrophil, Absolute 8.8 10 3/mcL High 2.9-6.2 [facility] ([place]) Comment on above: Performed By: #### G FR, LIPID, HFP, A1C, IBC, TSH, CBC, ANEU, FT4, FERR, ADIFF, CMP, FE, VIDH, FT3 #### [address] [address] #### FOL, B12 #### [address] [address] CBCon 03-31-2023 Erythrocyte distribution width (RBC) [Ratio] 13.9 % Normal 11.5-14.5 [facility] ([place]) Comment on above: Performed By: #### G FR, LIPID, HFP, A1C, IBC, TSH, CBC, ANEU, FT4, FERR, ADIFF, CMP, FE, VIDH, FT3 #### [address] [address] #### FOL, B12 #### [address] [address] Hematocrit (Bld) [Volume fraction] 33.1 % Low 37.0-47.0 [facility] ([place]) Comment on above: Performed By: #### G FR, LIPID, HFP, A1C, IBC, TSH, CBC, ANEU, FT4, FERR, ADIFF, CMP, FE, VIDH, FT3 #### [address] [address] #### FOL, B12 #### [address] [address] Hgb 11.5 G/dL Low 12.0-16.0 [facility] ([place]) Comment on above: Performed By: #### G FR, LIPID, HFP, A1C, IBC, TSH, CBC, ANEU, FT4, FERR, ADIFF, CMP, FE, VIDH, FT3 #### [address] [address] #### FOL, B12 #### [address] [address] MCH (RBC) [Entitic mass] 32.3 pg High 27.0-31.2 [facility] ([place]) Comment on above: Performed By: #### G FR, LIPID, HFP, A1C, IBC, TSH, CBC, ANEU, FT4, FERR, ADIFF, CMP, FE, VIDH, FT3 #### [address] [address] #### FOL, B12 #### [address] [address] MCHC 34.7 G/dL Normal 33.0-37.0 [facility] ([place]) Comment on above: Performed By: #### G FR, LIPID, HFP, A1C, IBC, TSH, CBC, ANEU, FT4, FERR, ADIFF, CMP, FE, VIDH, FT3 #### [address] [address] #### FOL, B12 #### [address] [address] MCV (RBC) [Entitic vol] 93.0 fL Normal 80.0-94.0 [facility] ([place]) Comment on above: Performed By: #### G FR, LIPID, HFP, A1C, IBC, TSH, CBC, ANEU, FT4, FERR, ADIFF, CMP, FE, VIDH, FT3 #### [address] [address] #### FOL, B12 #### [address] [address] Platelet 155 10 3/mcL Normal 130-400 [facility] ([place]) Comment on above: Performed By: #### G FR, LIPID, HFP, A1C, IBC, TSH, CBC, ANEU, FT4, FERR, ADIFF, CMP, FE, VIDH, FT3 #### [place] [address] #### FOL, B12 #### [address] [address] Platelet mean volume (Bld) [Entitic vol] 9.3 fL Normal 7.4-10.4 [facility] ([place]) Comment on above: Performed By: #### G FR, LIPID, HFP, A1C, IBC, TSH, CBC, ANEU, FT4, FERR, ADIFF, CMP, FE, VIDH, FT3 #### [place] [address] #### FOL, B12 #### [address] [address] RBC 3.55 10 6/mcL Low 4.20-5.40 [facility] ([place]) Comment on above: Performed By: #### G FR, LIPID, HFP, A1C, IBC, TSH, CBC, ANEU, FT4, FERR, ADIFF, CMP, FE, VIDH, FT3 #### [place] [address] #### FOL, B12 #### [address] [address] WBC 10.9 10 3/mcL High 4.6-10.8 [facility] ([place]) Comment on above: Performed By: #### G FR, LIPID, HFP, A1C, IBC, TSH, CBC, ANEU, FT4, FERR, ADIFF, CMP, FE, VIDH, FT3 #### [facility] [address] [place], [place] [address] #### FOL, B12 #### [address] [address] LABORATORYOrdered By: Billie Ibarra on 03-31-2023 Basophil, [...] Ab RPR Ql (S) Non-Reactive Normal Non-Reactive [facility] ([place]) Comment on above: Result Comment: The RPR [...] FERR, ADIFF, CMP, FE, VIDH, FT3 #### [address] [address] #### FOL, B12 #### [address] [address] .Auto Diffon 03-30-2023 Basophil, Absolute 0.0 10 3/mcL Normal 0.0-0.2 [facility] ([place]) Comment on above: Performed By: #### G FR, LIPID, HFP, A1C, IBC, TSH, CBC, ANEU, FT4, FERR, ADIFF, CMP, FE, VIDH, FT3 #### [address] [address] #### FOL, B12 #### [address] [address] Basophils/100 WBC (Bld) 0.1 % Normal 0.0-2.5 [facility] ([place] Comment on above: Performed By: #### G FR, LIPID, HFP, A1C, IBC, TSH, CBC, ANEU, FT4, FERR, ADIFF, CMP, FE, VIDH, FT3 #### [address] [address] #### FOL, B12 #### [address] [address] Eosinophil, Absolute 0.0 10 3/mcL Normal 0.0-0.4 [facility] ([place]) Comment on above: Performed By: #### G FR, LIPID, HFP, A1C, IBC, TSH, CBC, ANEU, FT4, FERR, ADIFF, CMP, FE, VIDH, FT3 #### [address] [address] #### FOL, B12 #### [address] [address] Eosinophils/100 WBC (Bld) 0.2 % Normal 0.0-7.0 [facility] ([place]) Comment on above: Performed By: #### G FR, LIPID, HFP, A1C, IBC, TSH, CBC, ANEU, FT4, FERR, ADIFF, CMP, FE, VIDH, FT3 #### [address] [address] #### FOL, B12 #### [address] [address] Lymphocyte, Absolute 1.8 10 3/mcL Normal 0.8-3.9 [facility] ([place]) Comment on above: Performed By: #### G FR, LIPID, HFP, A1C, IBC, TSH, CBC, ANEU, FT4, FERR, ADIFF, CMP, FE, VIDH, FT3 #### [address] [address] #### FOL, B12 #### [address] [address] Lymphocytes/100 WBC (Bld) 16.8 % Normal 10.0-50.0 [facility] ([place] Comment on above: Performed By: #### G FR, LIPID, HFP, A1C, IBC, TSH, CBC, ANEU, FT4, FERR, ADIFF, CMP, FE, VIDH, FT3 #### [address] [address] #### FOL, B12 #### [address] [address] Monocyte, Absolute 0.8 10 3/mcL Normal 0.2-1.0 [facility] ([place]) Comment on above: Performed By: #### G FR, LIPID, HFP, A1C, IBC, TSH, CBC, ANEU, FT4, FERR, ADIFF, CMP, FE, VIDH, FT3 #### [address] [address] #### FOL, B12 #### [address] [address] Monocytes/100 WBC (Bld) 7.2 % Normal 1.7-13.0 [facility] ([place] Comment on above: Performed By: #### G FR, LIPID, HFP, A1C, IBC, TSH, CBC, ANEU, FT4, FERR, ADIFF, CMP, FE, VIDH, FT3 #### [address] [address] #### FOL, B12 #### [address] [address] Neutrophils/100 WBC (Bld) 75.7 % Normal 37.0-80.0 [facility] ([place]) Comment on above: Performed By: #### G FR, LIPID, HFP, A1C, IBC, TSH, CBC, ANEU, FT4, FERR, ADIFF, CMP, FE, VIDH, FT3 #### [address] [address] #### FOL, B12 #### [address] [address] .NEUABSon 03-30-2023 Neutrophil, Absolute 8.2 10 3/mcL High 2.9-6.2 [facility] ([place]) Comment on above: Performed By: #### G FR, LIPID, HFP, A1C, IBC, TSH, CBC, ANEU, FT4, FERR, ADIFF, CMP, FE, VIDH, FT3 #### [address] [address] #### FOL, B12 #### [address] [address] CBCon 03-30-2023 Erythrocyte distribution width (RBC) [Ratio] 13.8 % Normal 11.5-14.5 [facility] ([place]) Comment on above: Performed By: #### G FR, LIPID, HFP, A1C, IBC, TSH, CBC, ANEU, FT4, FERR, ADIFF, CMP, FE, VIDH, FT3 #### [place] [address] #### FOL, B12 #### [place] [address] Hematocrit (Bld) [Volume fraction] 37.2 % Normal 37.0-47.0 [facility] ([place]) Comment on above: Performed By: #### G FR, LIPID, HFP, A1C, IBC, TSH, CBC, ANEU, FT4, FERR, ADIFF, CMP, FE, VIDH, FT3 #### [place] [address] #### FOL, B12 #### [address] [address] Hgb 12.9 G/dL Normal 12.0-16.0 [facility] ([place]) Comment on above: Performed By: #### G FR, LIPID, HFP, A1C, IBC, TSH, CBC, ANEU, FT4, FERR, ADIFF, CMP, FE, VIDH, FT3 #### [place] [address] #### FOL, B12 #### [address] [address] MCH (RBC) [Entitic mass] 32.2 pg High 27.0-31.2 [facility] ([place]) Comment on above: Performed By: #### G FR, LIPID, HFP, A1C, IBC, TSH, CBC, ANEU, FT4, FERR, ADIFF, CMP, FE, VIDH, FT3 #### [address] [address] #### FOL, B12 #### [address] [address] MCHC 34.7 G/dL Normal 33.0-37.0 [facility] ([place]) Comment on above: Performed By: #### G FR, LIPID, HFP, A1C, IBC, TSH, CBC, ANEU, FT4, FERR, ADIFF, CMP, FE, VIDH, FT3 #### [address] [address] #### JONO, B12 #### [address] [address] MCV (RBC) [Entitic vol] 92.8 fL Normal 80.0-94.0 [facility] ([place]) Comment on above: Performed By: #### G FR, LIPID, HFP, A1C, IBC, TSH, CBC, ANEU, FT4, FERR, ADIFF, CMP, FE, VIDH, FT3 #### [address] [address] #### JONO, B12 #### [address] [address] Platelet 169 10 3/mcL Normal 130-400 [facility] ([place]) Comment on above: Performed By: #### G FR, LIPID, HFP, A1C, IBC, TSH, CBC, ANEU, FT4, FERR, ADIFF, CMP, FE, VIDH, FT3 #### [address] [address] #### FOL, B12 #### [address] [address] Platelet mean volume (Bld) [Entitic vol] 9.7 fL Normal 7.4-10.4 [facility] ([place]) Comment on above: Performed By: #### G FR, LIPID, HFP, A1C, IBC, TSH, CBC, ANEU, FT4, FERR, ADIFF, CMP, FE, VIDH, FT3 #### [address] [address] #### FOL, B12 #### [address] [address] RBC 4.01 10 6/mcL Low 4.20-5.40 [facility] ([place]) Comment on above: Performed By: #### G FR, LIPID, HFP, A1C, IBC, TSH, CBC, ANEU, FT4, FERR, ADIFF, CMP, FE, VIDH, FT3 #### [address] [address] #### FOL, B12 #### [address] [address] WBC 10.8 10 3/mcL Normal 4.6-10.8 [facility] ([place]) Comment on above: Performed By: #### G FR, LIPID, HFP, A1C, IBC, TSH, CBC, ANEU, FT4, FERR, ADIFF, CMP, FE, VIDH, FT3 #### [address] [address] #### FOL, B12 #### [address] [address] Gel ABOon 03-30-2023 ABO/Rh Interp Positive Invalid Interpretation Code [facility] ([place]) Comment on above: Performed By: #### G FR, LIPID, HFP, A1C, IBC, TSH, CBC, ANEU, FT4, FERR, ADIFF, CMP, FE, VIDH, FT3 #### [address] [address] #### FOL, B12 #### [address] [address] Gel ABSon 03-30-2023 Antibody Screen Gel Negative Normal [facility] ([place]) Comment on above: Performed By: #### G FR, LIPID, HFP, A1C, IBC, TSH, CBC, ANEU, FT4, FERR, ADIFF, CMP, FE, VIDH, FT3 #### [address] [address] #### FOL, B12 #### [place] [address] LABORATORYOrdered By: Lilia Espinoza on 03-30-2023 ABO/Rh Interp Positive Invalid Interpretation Code AO BB SS Antibody Screen Gel Negative ABSC (03/30/23 7:57 AM) Invalid Interpretation Code AO BB SS LABORATORYOrdered By: Isabelle Ellis on 03-30-2023 Basophil, Absolute 0.0 103/mcL [...] Normal Negative [facility] ([place]) Comment on above: Performed By: #### G BSPCR #### [address] [address] Group B Strep PCR Int Normal [facility] ([place]) Comment on above: Result Comment: Grou p [...] Below Performed By: #### G BSPCR #### [address] [address] RPRon 03-10-2023 Reagin Ab RPR Ql (S) Non-Reactive Normal Non-Reactive [facility] ([place]) Comment on above: Result Comment: The RPR [...] FERR, ADIFF, CMP, FE, VIDH, FT3 #### [address] [address] #### FOL, B12 #### [address] [address] .Auto Diffon 03-09-2023 Basophil, Absolute 0.0 10 3/mcL Normal 0.0-0.2 [facility] ([place]) Comment on above: Performed By: #### G FR, LIPID, HFP, A1C, IBC, TSH, CBC, ANEU, FT4, FERR, ADIFF, CMP, FE, VIDH, FT3 #### [address] [address] #### FOL, B12 #### [address] [address] Basophils/100 WBC (Bld) 0.2 % Normal 0.0-2.5 [facility] ([place]) Comment on above: Performed By: #### G FR, LIPID, HFP, A1C, IBC, TSH, CBC, ANEU, FT4, FERR, ADIFF, CMP, FE, VIDH, FT3 #### [address] [address] #### FOL, B12 #### [address] [address] Eosinophil, Absolute 0.0 10 3/mcL Normal 0.0-0.4 [facility] ([place]) Comment on above: Performed By: #### G FR, LIPID, HFP, A1C, IBC, TSH, CBC, ANEU, FT4, FERR, ADIFF, CMP, FE, VIDH, FT3 #### [address] [address] #### FOL, B12 #### [address] [address] Eosinophils/100 WBC (Bld) 0.3 % Normal 0.0-7.0 [facility] ([place]) Comment on above: Performed By: #### G FR, LIPID, HFP, A1C, IBC, TSH, CBC, ANEU, FT4, FERR, ADIFF, CMP, FE, VIDH, FT3 #### [address] [address] #### FOL, B12 #### [address] [address] Lymphocyte, Absolute 1.5 10 3/mcL Normal 0.8-3.9 [facility] ([place]) Comment on above: Performed By: #### G FR, LIPID, HFP, A1C, IBC, TSH, CBC, ANEU, FT4, FERR, ADIFF, CMP, FE, VIDH, FT3 #### [address] [address] #### FOL, B12 #### [address] [address] Lymphocytes/100 WBC (Bld) 15.8 % Normal 10.0-50.0 [facility] ([place]) Comment on above: Performed By: #### G FR, LIPID, HFP, A1C, IBC, TSH, CBC, ANEU, FT4, FERR, ADIFF, CMP, FE, VIDH, FT3 #### [address] [address] #### FOL, B12 #### [address] [address] Monocyte, Absolute 0.6 10 3/mcL Normal 0.2-1.0 [facility] ([place]) Comment on above: Performed By: #### G FR, LIPID, HFP, A1C, IBC, TSH, CBC, ANEU, FT4, FERR, ADIFF, CMP, FE, VIDH, FT3 #### [address] [address] #### FOL, B12 #### [address] [address] Monocytes/100 WBC (Bld) 6.6 % Normal 1.7-13.0 [facility] ([place]) Comment on above: Performed By: #### G FR, LIPID, HFP, A1C, IBC, TSH, CBC, ANEU, FT4, FERR, ADIFF, CMP, FE, VIDH, FT3 #### [address] [address] #### FOL, B12 #### [address] [address] Neutrophils/100 WBC (Bld) 77.1 % Normal 37.0-80.0 [facility] ([place]) Comment on above: Performed By: #### G FR, LIPID, HFP, A1C, IBC, TSH, CBC, ANEU, FT4, FERR, ADIFF, CMP, FE, VIDH, FT3 #### [address] [address] #### FOL, B12 #### [address] [address] .NEUABSon 03-09-2023 Neutrophil, Absolute 7.4 10 3/mcL High 2.9-6.2 [facility] ([place]) Comment on above: Performed By: #### G FR, LIPID, HFP, A1C, IBC, TSH, CBC, ANEU, FT4, FERR, ADIFF, CMP, FE, VIDH, FT3 #### [address] [address] #### FOL, B12 #### [address] [address] CBCon 03-09-2023 Erythrocyte distribution width (RBC) [Ratio] 13.9 % Normal 11.5-14.5 [facility] ([place]) Comment on above: Performed By: #### G FR, LIPID, HFP, A1C, IBC, TSH, CBC, ANEU, FT4, FERR, ADIFF, CMP, FE, VIDH, FT3 #### [address] [address] #### FOL, B12 #### [address] [address] Hematocrit (Bld) [Volume fraction] 36.3 % Low 37.0-47.0 [facility] ([place]) Comment on above: Performed By: #### G FR, LIPID, HFP, A1C, IBC, TSH, CBC, ANEU, FT4, FERR, ADIFF, CMP, FE, VIDH, FT3 #### [address] [address] #### FOL, B12 #### [address] [address] Hgb 12.6 G/dL Normal 12.0-16.0 [facility] ([place]) Comment on above: Performed By: #### G FR, LIPID, HFP, A1C, IBC, TSH, CBC, ANEU, FT4, FERR, ADIFF, CMP, FE, VIDH, FT3 #### [address] [address] #### FOL, B12 #### [address] [address] MCH (RBC) [Entitic mass] 32.4 pg High 27.0-31.2 [facility] ([place]) Comment on above: Performed By: #### G FR, LIPID, HFP, A1C, IBC, TSH, CBC, ANEU, FT4, FERR, ADIFF, CMP, FE, VIDH, FT3 #### [address] [address] #### FOL, B12 #### [address] [address] MCHC 34.7 G/dL Normal 33.0-37.0 [facility] ([place]) Comment on above: Performed By: #### G FR, LIPID, HFP, A1C, IBC, TSH, CBC, ANEU, FT4, FERR, ADIFF, CMP, FE, VIDH, FT3 #### [address] [address] #### FOL, B12 #### [address] [address] MCV (RBC) [Entitic vol] 93.3 fL Normal 80.0-94.0 [facility] ([place]) Comment on above: Performed By: #### G FR, LIPID, HFP, A1C, IBC, TSH, CBC, ANEU, FT4, FERR, ADIFF, CMP, FE, VIDH, FT3 #### [address] [address] #### FOL, B12 #### [address] [address] Platelet 171 10 3/mcL Normal 130-400 [facility] ([place]) Comment on above: Performed By: #### G FR, LIPID, HFP, A1C, IBC, TSH, CBC, ANEU, FT4, FERR, ADIFF, CMP, FE, VIDH, FT3 #### [address] [address] #### FOL, B12 #### [address] [address] Platelet mean volume (Bld) [Entitic vol] 8.5 fL Normal 7.4-10.4 [facility] ([place]) Comment on above: Performed By: #### G FR, LIPID, HFP, A1C, IBC, TSH, CBC, ANEU, FT4, FERR, ADIFF, CMP, FE, VIDH, FT3 #### [address] [address] #### FOL, B12 #### [address] [address] RBC 3.89 10 6/mcL Low 4.20-5.40 [facility] ([place]) Comment on above: Performed By: #### G FR, LIPID, HFP, A1C, IBC, TSH, CBC, ANEU, FT4, FERR, ADIFF, CMP, FE, VIDH, FT3 #### [address] [address] #### FOL, B12 #### [place] [address] WBC 9.7 10 3/mcL Normal 4.6-10.8 [facility] ([place]) Comment on above: Performed By: #### G FR, LIPID, HFP, A1C, IBC, TSH, CBC, ANEU, FT4, FERR, ADIFF, CMP, FE, VIDH, FT3 #### [address] [place] [address] #### FOL, B12 #### [place] [address] LABORATORYOrdered By: Isabella Eng on 03-09-2023 Group [...] SS AMNIon 03-06-2023 Amnisure Negative Normal Negative [facility] ([place]) Comment on above: Performed By: #### G FR, LIPID, HFP, A1C, IBC, TSH, CBC, ANEU, FT4, FERR, ADIFF, CMP, FE, VIDH, FT3 #### [address] [address] #### FOL, B12 #### [place] [address] LABORATORYOrdered By: Lilia Espinoza on 03-06-2023 Nxywx-[id number] .placental Ql (Vag fld) Negative (03/06/23 5:57 [...] mg/dL AO ADM SS LABORATORYOrdered By: Hiwot doc Mian on 01-19-2023 Glucose [Mass/Vol] 115 mg/dL Invalid Interpretation Code 120 - 190 mg/dL AO ADM SS Glucose [Mass/Vol] 84 mg/dL Invalid Interpretation Code 83 - 110 mg/dL AO ADM SS CNCOon 11-12-2022 CNCO Letter Text Normal [facility] Bacteria Ur Culton 3 Bacteria identified Cx Nom (U) CULTURE, URINE: <10,000 CFU/ml Normal Urogenital Den Normal [facility] Comment on above: Performed By: #### 6 30-4 #### [facility] CLIA [id number] [address] ED NOTEon 10-29-2022 ED NOTE HNO ID: [id number] Author: Martinez Crouch RN Service: ? Author Type: Registered Nurse Type: ED Notes Filed: 10/28/2022 10:37 PM Note Text: Bed: 26-ED Expected date: Expected time: Means of arrival: Comments: triage Normal [facility] ED PROV NOTEon 10-29-2022 ED PROV NOTE HNO ID: [id number] Author: Danitza Reis DO Service: Emergency Medicine [...] BABS Medina CHRISTINA M 10/29/22 0323 Normal [facility] ED PROV NOTE HNO ID: [id number] Author: Danitza Reis DO Service: Emergency Medicine [...] were ketones in her urine. AOX3 HPI Ms. Luz Oliveira is a 22 year old at [...] was dehydrated. She follows with OB at [facility] in [place]. complicated by hyperemesis gravidarum and bleeding in [...] 81.2 kg (179 lb) 1.549 m (5' 1") Physical Exam Vitals and nursing note reviewed. [...] sign, Rovsing (more content not included)... Normal [facility] EKGon 10-29-2022 Electrocardiogram Ventricular Rate : 129 BPM Atrial Rate : 129 BPM P-R Interval : 130 ms QRS Duration : 70 ms Q-T Interval : 300 ms QTC Calculation(Bazett) : 439 ms Calculated P [place] : 31 degrees Calculated R [place] : 66 degrees Calculated T [place] : -[address] & T WAVE ABNORMALITY, CONSIDER INFERIOR ISCHEMIA ST & T WAVE ABNORMALITY, CONSIDER ANTEROLATERAL ISCHEMIA ABNORMAL ECG WHEN COMPARED WITH ECG OF 31-MAY-2022 13:06, VENT. RATE HAS INCREASED BY 58 BPM T WAVE INVERSION NOW EVIDENT IN INFERIOR LEADS INVERTED T WAVES HAVE REPLACED NONSPECIFIC T WAVE ABNORMALITY IN ANTEROLATERAL LEADS Confirmed by DO REIS CHRISTINA ([id number]) on 10/29/2022 1:44:37 AM NAME : LUZ OLIVEIRA PID : [id number] : 2000 Gender : Female Race : [...] ANTEROLATERAL LEADS Confirmed by DO REIS CHRISTINA ([id number]) on 10/29/2022 1:44:37 AM Test Reason : Location : : [place] [address] Overread By : DO REIS CHRISTINA Edited By : DO REIS CHRISTINA Referred By : , Acquired by : KASHIF JOHNSON Normal [facility] Urinalysis complete panel (U )on 10-29-2022 Bacteria LM.HPF (Urine sed) [#/Area] Few Abnormal None Seen [facility] Comment on above: Order Comment: Speci men Type: URINE SPECIMENOrdering Facility: [facility] Address: [address] [place] [address] Performed By: #### 2 4356-8 ####[facility]ORATORYCLIA [id number] [address] Bilirubin Ql (U) Negative Normal Negative [facility] Comment on above: Order Comment: Speci men Type: URINE SPECIMENOrdering Facility: [facility] Address: [address] [place] [address] Performed By: #### 2 4356-8 ####[facility]ORATORYCLIA [id number] [address] Clarity (Unsp spec) Turbid Abnormal Clear [facility] Comment on above: Order Comment: Speci men Type: URINE SPECIMENOrdering Facility: [facility] Address: [address] [place] [address] Performed By: #### 2 6-8 ####[facility]ORATORYCLIA [id number] [address] Color (U) Yellow Normal yellow [facility] Comment on above: Order Comment: Speci men Type: URINE SPECIMENOrdering Facility: [facility] Address: [address] [place] [address] Performed By: #### 2 6-8 ####[facility]ORATORYCLIA [id number] [address] Epithelial cells LM.HPF (Urine sed) [#/Area] Few Normal [facility] Comment on above: Order Comment: Speci men Type: URINE SPECIMENOrdering Facility: [facility] Address: [address] [place] [address] Performed By: #### 2 4356-8 ####[facility]ORATORYCLIA [id number] [address] Glucose Test strip (U) [Mass/Vol] Negative Normal Trace, Negative [facility] Comment on above: Order Comment: Speci men Type: URINE SPECIMENOrdering Facility: [facility] Address: [address] [place] [address] Performed By: #### 2 4356-8 ####[facility] LABORATORYCLIA [id number] [address] STATES [facility] Hemoglobin Ql (U) 1+ Abnormal Negative, Trace [facility] Comment on above: Order Comment: Speci men Type: URINE SPECIMENOrdering Facility: [facility] Address: [address] [place] [address] Performed By: #### 2 4356-8 ####[facility] LABORATORYCLIA [id number] [address] Ketones Ql (U) 4+ Abnormal Negative, Trace [facility] Comment on above: Order Comment: Speci men Type: URINE SPECIMENOrdering Facility: [facility] Address: [address] [place] [address] Performed By: #### 2 4356-8 ####[facility] LABORATORYCLIA [id number] [address] Leukocyte esterase Test strip Ql (U) 25 Misti/mL Normal Negative, 25 Misti/mL [facility] Comment on above: Order Comment: Speci men Type: URINE SPECIMENOrdering Facility: [facility] Address: [address] [place] [address] Performed By: #### 2 4356-8 ####[facility]ORATORYCLIA [id number] [address] Nitrite Ql (U) Negative Normal Negative [facility] Comment on above: Order Comment: Speci men Type: URINE SPECIMENOrdering Facility: [facility] Address: [address] [place] [address] Performed By: #### 2 4356-8 ####[facility]ORATORYCLIA [id number] [address] pH (U) 6.0 [pH] Normal 5.0-8.0 [facility] Comment on above: Order Comment: Speci men Type: URINE SPECIMENOrdering Facility: [facility] Address: [address] [place] [address] Performed By: #### 2 4356-8 ####[facility] LABORATORYCLIA [id number] [address] [place] [facility] Protein (U) [Mass/Vol] 1+ Abnormal Trace, Negative [facility] Comment on above: Order Comment: Speci men Type: URINE SPECIMENOrdering Facility: [facility] Address: [address] [place] [address] Performed By: #### 2 4356-8 ####[facility] LABORATORYCLIA [id number] [address] [place] RBC LM.HPF (Urine sed) [#/Area] 6-10 /HPF Abnormal 0-3 /HPF [facility] Comment on above: Order Comment: Speci men Type: URINE SPECIMENOrdering Facility: [facility] Address: [address] [place] [address] Performed By: #### 2 4356-8 ####[facility] LABORATORYCLIA [id number] [address] Specific gravity (U) [Rel density] 1.029 Normal 1.005-1.030 [facility] Comment on above: Order Comment: Speci men Type: URINE SPECIMENOrdering Facility: [facility] Address: [address] [place] [address] Performed By: #### 2 4356-8 ####[facility] LABORATORYCLIA [id number] [address] Urobilinogen Ql (U) Normal Normal Negative [facility] Comment on above: Order Comment: Speci men Type: URINE SPECIMENOrdering Facility: [facility] Address: [address] [place] [address] Performed By: #### 2 4356-8 ####[facility] LABORATORYCLIA [id number] [place] [address] [place] WBC LM.HPF (Urine sed) [#/Area] 0-5 /HPF Normal 0-5 /HPF [facility] Comment on above: Order Comment: Speci men Type: URINE SPECIMENOrdering Facility: [facility] Address: [address] [place] [address] Performed By: #### 2 4356-8 ####[facility] LABORATORYCLIA [id number] [place] [address] [place] Basic metabolic 2000 panelon 10-28-2022 Anion gap [Moles/Vol] 15 mmol/L Normal 9-18 [facility] Comment on above: Order Comment: Speci men Type: BLOOD SPECIMENOrdering Facility: [facility] Address: [address] [place] [address] Performed By: #### 2 4321-2, ####[facility] LABORATORYCLIA [id number] [place] [address] [place] Calcium [Mass/Vol] 10.1 mg/dL Normal 8.5-10.2 [facility] Comment on above: Order Comment: Speci men Type: BLOOD SPECIMENOrdering Facility: [facility] Address: [address] [place] [address] Performed By: #### 2 4321-2, ####[facility] LABORATORYCLIA [id number] [place] [address] [place] Chloride [Moles/Vol] 102 mmol/L Normal 97-105 [facility] Comment on above: Order Comment: Speci men Type: BLOOD SPECIMENOrdering Facility: [facility] Address: [address] [place] [address] Performed By: #### 2 4321-2, ####[facility] LABORATORYCLIA [id number] [place] [address] [place] CO2 [Moles/Vol] 22 mmol/L Normal 22-30 [facility] Comment on above: Order Comment: Speci men Type: BLOOD SPECIMENOrdering Facility: [facility] Address: [address] [address] Performed By: #### 2 4321-2, ####[facility]ENTERIA [id number] [address] OF [facility] Creatinine [Mass/Vol] 0.61 mg/dL Normal 0.58-0.96 [facility] Comment on above: Order Comment: Speci men Type: BLOOD SPECIMENOrdering Facility: [facility] Address: [address] [place] [place] [address] Performed By: #### 2 4321-2, ####[facility] CENTERIA [id number] [address] ESTIMATED GLOMERULAR FILTRATION RATE 129 mL/min/1.73m??? Normal >=60 [facility] Comment on above: Order Comment: Speci men Type: BLOOD SPECIMENOrdering Facility: [facility] Address: [address] [place] [address] Result Comment: Tierra mated Glomerular Filtration Rate [...] reflect actual GFR. Performed By: #### 2 4321-2, ####[facility] LABORATORYIA [id number] [address] OF [facility] Glucose [Mass/Vol] 86 mg/dL Normal 74-99 [facility] Comment on above: Order Comment: Speci men Type: BLOOD SPECIMENOrdering Facility: [facility] Address: [address] [place] [address] Result Comment: The [place] Diabetes Association (ADA) provides guidance for cutoff [...] Standards of Medical Care in Diabetes 2016, [place] Diabetes Association. Diabetes Care. 2016.39(Suppl 1). Performed By: #### 2 4320-11, ####[facility]ORATORYCLIA [id number] [address] STATES OF [facility] Potassium [Moles/Vol] 3.2 mmol/L Low 3.7-5.1 [facility] Comment on above: Order Comment: Eloise lopez Type: BLOOD SPECIMENOrdering Facility: [facility] Address: [address] [place] [address] Performed By: #### 2 4320-11, ####[facility] [id number] [address] Sodium [Moles/Vol] 139 mmol/L Normal 136-144 [facility] Comment on above: Order Comment: Eloise lopez Type: BLOOD SPECIMENOrdering Facility: [facility] Address: [address] [place] [address] Performed By: #### 2 4320-11, ####[facility]ATORYCLIA [id number] [address] Urea nitrogen [Mass/Vol] 5 mg/dL Low 7-21 [facility] Comment on above: Order Comment: Mariposai jessica Type: BLOOD SPECIMENOrdering Facility: [facility] Address: [address] [address] Performed By: #### 2 4320-11, ####[facility]ATORYCLIA [id number] [address] STATES [place] CBC W Auto Differential pane l (Bld)on 10-28-2022 Basophils (Bld) [#/Vol] 10*3/uL Normal <0.11 [facility] Comment on above: Order Comment: Speci men Type: BLOOD SPECIMENOrdering Facility: [facility] Address: [address] [place] [address] Performed By: #### 5 7021-8 ####[facility]ORYCLIA [id number] [address] STATES [facility] Basophils/100 WBC (Bld) 0.1 % Normal [facility] Comment on above: Order Comment: Speci men Type: BLOOD SPECIMENOrdering Facility: [facility] Address: [address] [place] [address] Performed By: #### 5 7021-8 ####[facility]ORYCLIA [id number] [address] Differential cell count method Nom (Bld) Auto Normal [facility] Comment on above: Order Comment: Speci men Type: BLOOD SPECIMENOrdering Facility: [facility] Address: [address] [place] [address] Performed By: #### 5 7021-8 ####[facility]ATORYCLIA [id number] [address] STATES OF [place] Eosinophils (Bld) [#/Vol] 10*3/uL Normal <0.46 [facility] Comment on above: Order Comment: Speci men Type: BLOOD SPECIMENOrdering Facility: [facility] Address: [address] [place] [address] Performed By: #### 5 7021-8 ####[facility]ORYCLIA [id number] [address] Eosinophils/100 WBC (Bld) 0.1 % Normal [facility] Comment on above: Order Comment: Speci men Type: BLOOD SPECIMENOrdering Facility: [facility] Address: [address] [place] [address] Performed By: #### 5 7021-8 ####[facility]ORYCLIA [id number] [address] [place] Erythrocyte distribution width (RBC) [Ratio] 13.8 % Normal 11.5-15.0 [facility] Comment on above: Order Comment: Speci men Type: BLOOD SPECIMENOrdering Facility: [facility] Address: [address] [place] [address] Performed By: #### 5 7021-8 ####[facility]ORATORYCLIA [id number] [address] OF [place] Hematocrit (Bld) [Volume fraction] 38.2 % Normal 36.0-46.0 [facility] Comment on above: Order Comment: Speci men Type: BLOOD SPECIMENOrdering Facility: [facility] Address: [address] [place] [address] Performed By: #### 5 7021-8 ####[facility]ORYCLIA [id number] [address] STATES [place] Hemoglobin (Bld) [Mass/Vol] 13.5 g/dL Normal 11.5-15.5 [facility] Comment on above: Order Comment: Speci men Type: BLOOD SPECIMENOrdering Facility: [facility] Address: [address] [place] [address] Performed By: #### 5 7021-8 ####[facility]ATORYCLIA [id number] [address] OF [place] Immature granulocytes (Bld) [#/Vol] 0.04 10*3/uL Normal <0.10 [facility] Comment on above: Order Comment: Speci men Type: BLOOD SPECIMENOrdering Facility: [facility] Address: [address] [address] Performed By: #### 5 7021-8 ####[facility]ATORYCLIA [id number] [address] OF [place] Immature granulocytes/100 WBC (Bld) 0.5 % Normal [facility] Comment on above: Order Comment: Speci men Type: BLOOD SPECIMENOrdering Facility: [facility] Address: [address] [place] [address] Performed By: #### 5 7021-8 ####[facility]ATORYCLIA [id number] [address] OF [facility] Lymphocytes (Bld) [#/Vol] 1.53 10*3/uL Normal 1.00-4.00 [facility] Comment on above: Order Comment: Speci men Type: BLOOD SPECIMENOrdering Facility: [facility] Address: [address] [place] [address] Performed By: #### 5 7021-8 ####[facility]ATORYCLIA [id number] [address] Lymphocytes/100 WBC (Bld) 18.8 % Normal [facility] Comment on above: Order Comment: Speci men Type: BLOOD SPECIMENOrdering Facility: [facility] Address: [address] [place] [address] Performed By: #### 5 7021-8 ####[facility]ATORYCLIA [id number] [address] MCH (RBC) [Entitic mass] 31.6 pg Normal 26.0-34.0 [facility] Comment on above: Order Comment: Speci men Type: BLOOD SPECIMENOrdering Facility: [facility] Address: [address] [place] [address] Performed By: #### 5 7021-8 ####[facility]ATORYCLIA [id number] [address] STATES [place] MCHC (RBC) [Mass/Vol] 35.3 g/dL Normal 30.5-36.0 [facility] Comment on above: Order Comment: Speci men Type: BLOOD SPECIMENOrdering Facility: [facility] Address: [address] [place] [address] Performed By: #### 5 7021-8 ####[facility]ATORYCLIA [id number] [address] MCV (RBC) [Entitic vol] 89.5 fL Normal 80.0-100.0 [facility] Comment on above: Order Comment: Speci men Type: BLOOD SPECIMENOrdering Facility: [facility] Address: [address] [address] Performed By: #### 5 7021-8 ####[facility]ATORYCLIA [id number] [place] [address] [place] Monocytes (Bld) [#/Vol] 0.51 10*3/uL Normal <0.87 [facility] Comment on above: Order Comment: Speci men Type: BLOOD SPECIMENOrdering Facility: [facility] Address: [address] [address] Performed By: #### 5 7021-8 ####[facility] LABORATORYCLIA [id number] [address] STATES [place] Monocytes/100 WBC (Bld) 6.3 % Normal [facility] Comment on above: Order Comment: Speci men Type: BLOOD SPECIMENOrdering Facility: [facility] Address: [address] [place] [address] Performed By: #### 5 7021-8 ####[facility]ATORYCLIA [id number] [place] [address] [place] Neutrophils (Bld) [#/Vol] 6.06 10*3/uL Normal 1.45-7.50 [facility] Comment on above: Order Comment: Speci men Type: BLOOD SPECIMENOrdering Facility: [facility] Address: [address] [place] [address] Performed By: #### 5 7021-8 ####[facility]ORYCLIA [id number] [address] STATES [place] Neutrophils/100 WBC (Bld) 74.2 % Normal [facility] Comment on above: Order Comment: Speci men Type: BLOOD SPECIMENOrdering Facility: [facility] Address: [address] [place] [address] Performed By: #### 5 7021-8 ####[facility]ORYCLIA [id number] [place] [address] [place] Nucleated RBC (Bld) [#/Vol] 10*3/uL Normal <0.01 [facility] Comment on above: Order Comment: Speci men Type: BLOOD SPECIMENOrdering Facility: [facility] Address: [address] [place] [address] Performed By: #### 5 7021-8 ####[facility]ATORYCLIA [id number] [address] STATES [place] Nucleated RBC/100 WBC (Bld) [Ratio] 0.0 /100 WBC Normal [facility] Comment on above: Order Comment: Speci men Type: BLOOD SPECIMENOrdering Facility: [facility] Address: [address] [address] Performed By: #### 5 7021-8 ####[facility]ORATORYCLIA [id number] [place] [address] [place] Platelet mean volume (Bld) [Entitic vol] 10.2 fL Normal 9.0-12.7 [facility] Comment on above: Order Comment: Speci men Type: BLOOD SPECIMENOrdering Facility: [facility] Address: [address] [place] [address] Performed By: #### 5 7021-8 ####[facility]ORATORYCLIA [id number] [place] [address] [place] Platelets (Bld) [#/Vol] 191 10*3/uL Normal 150-400 [facility] Comment on above: Order Comment: Speci men Type: BLOOD SPECIMENOrdering Facility: [facility] Address: [address] [address] Performed By: #### 5 7021-8 ####[facility]ORATORYCLIA [id number] [place] [address] [place] RBC (Bld) [#/Vol] 4.27 10*6/uL Normal 3.90-5.20 [facility] Comment on above: Order Comment: Speci men Type: BLOOD SPECIMENOrdering Facility: [facility] Address: [address] [place] [address] Performed By: #### 5 7021-8 ####[facility]ATORYCLIA [id number] [address] WBC (Bld) [#/Vol] 8.16 10*3/uL Normal 3.70-11.00 [facility] Comment on above: Order Comment: Speci men Type: BLOOD SPECIMENOrdering Facility: [facility] Address: [address] [place] [address] Performed By: #### 5 7021-8 ####[facility]ATORYCLIA [id number] [address] ED Triage Noteon 10-28-2022 ED Triage Note HNO ID: [id number] Author: Dax Stevenson APRN.HYDROGENATION OPERATOR Service: Emergency Medicine Author Type: Nurse Practitioner [...] CBC CMP EKG Urinalysis SIGNATURE: Dax Stevenson APRN.HYDROGENATION OPERATOR Normal [facility] Magnesium SerPl-mCncon 10-28 Magnesium [Mass/Vol] 1.8 mg/dL Normal 1.7-2.3 [facility] Comment on above: Order Comment: Speci men Type: BLOOD SPECIMENOrdering Facility: [facility] Address: [address] [place] [address] Performed By: #### 2 4321-2, 93741-1 ####[facility]ATORYCLIA [id number] [address] URINE OB DIP B/Oon 3 Glucose Ql (U) Negative Neg mg/dL [facility] Protein.monoclonal (U) [Mass/Vol] TRACE Abnormal Neg mg/dL [facility] CNCOon 08-21-2022 CNCO Letter Text Normal [facility] Bacteria Ur Culton 2 Bacteria identified Cx Nom (U) ORGANISM ID: 1 50,000-<100,000 CFU/ml Normal urogenital den Normal [facility] Comment on above: Performed By: #### 7 3752-8, 03815-2, 52666-1 #### [facility] CLIA [id number] [address] [place] [address] C. trachomatis+N. gonorrhoea e DNA CHICHO+probe Ql (Unsp spec)on 08-19-2022 C. trachomatis DNA CHICHO+probe Ql (Unsp spec) Negative Normal Negative for Chlamydia trachomatis by amplificaton [facility] Comment on above: Order Comment: Speci men Type: SWAB [facility] Address: [address] [place] [address] Performed By: #### 3 6902-5 #### [facility] CLIA [id number] [address] [place] [address] N. gonorrhoeae DNA CHICHO+probe Ql (Unsp spec) Negative Normal Negative for Neisseria gonorrhoeae by amplification [facility] Comment on above: Order Comment: Speci men Type: SWAB [facility] Address: [address] [place] [address] Performed By: #### 3 6902-5 #### [facility] CLIA [id number] [address] [place] [address] [place] CBC panel Auto (Bld)on 08-19 Erythrocyte distribution width (RBC) [Ratio] 12.4 % Normal 11.5-15.0 [facility] Comment on above: Order Comment: Speci men Type: BLOOD SPECIMEN [facility] Address: [address] [place] [address] Performed By: #### 7 3752-8, 30986-4, 17902-0 #### [facility] CLIA [id number] [address] [place] [address] [place] Hematocrit (Bld) [Volume fraction] 40.5 % Normal 36.0-46.0 [facility] Comment on above: Order Comment: Speci men Type: BLOOD SPECIMEN [facility] Address: [address] [place] [address] Performed By: #### 7 3752-8, 35141-0, 20991-3 #### [facility] CLIA [id number] [address] [place] [address] [place] Hemoglobin (Bld) [Mass/Vol] 13.6 g/dL Normal 11.5-15.5 [facility] Comment on above: Order Comment: Speci men Type: BLOOD SPECIMEN [facility] Address: [address] [place] [address] Performed By: #### 7 3752-8, 99911-3, 52954-2 #### [facility] CLIA [id number] [address] [place] [address] OF [place] MCH (RBC) [Entitic mass] 30.8 pg Normal 26.0-34.0 [facility] Comment on above: Order Comment: Speci men Type: BLOOD SPECIMEN [facility] Address: [address] [place] [address] Performed By: #### 7 3752-8, 31363-8, 94831-5 #### [facility] CLIA [id number] [address] [place] [address] [place] MCHC (RBC) [Mass/Vol] 33.6 g/dL Normal 30.5-36.0 [facility] Comment on above: Order Comment: Speci men Type: BLOOD SPECIMEN [facility] Address: [address] [place] [address] Performed By: #### 7 3752-8, 29691-0, 10039-1 #### [facility] CLIA [id number] [address] [place] [address] [place] MCV (RBC) [Entitic vol] 91.8 fL Normal 80.0-100.0 [facility] Comment on above: Order Comment: Speci men Type: BLOOD SPECIMEN [facility] Address: [address] [place] [address] Performed By: #### 7 3752-8, 96089-5, 03730-5 #### [facility] CLIA [id number] [address] [place] [address] [place] Nucleated RBC (Bld) [#/Vol] 10*3/uL Normal <0.01 [facility] Comment on above: Order Comment: Speci men Type: BLOOD SPECIMEN [facility] Address: [address] [place] [address] Performed By: #### 7 3752-8, 35655-9, 00201-7 #### [facility] CLIA [id number] [address] [place] [address] [place] Platelet mean volume (Bld) [Entitic vol] 10.5 fL Normal 9.0-12.7 [facility] Comment on above: Order Comment: Speci men Type: BLOOD SPECIMEN [facility] Address: [address] [place], [place] [address] Performed By: #### 7 3752-8, 16248-0, 52812-8 #### [facility] CLIA [id number] [address] [place] [address] [place] Platelets (Bld) [#/Vol] 247 10*3/uL Normal 150-400 [facility] Comment on above: Order Comment: Speci men Type: BLOOD SPECIMEN [facility] Address: [address] [place], [place] [address] Performed By: #### 7 3752-8, 78796-2, 14360-6 #### [facility] CLIA [id number] [address] [place] [address] [place] RBC (Bld) [#/Vol] 4.41 10*6/uL Normal 3.90-5.20 [facility] Comment on above: Order Comment: Speci men Type: BLOOD SPECIMEN [facility] Address: [address] [place] [address] Performed By: #### 7 3752-8, 15540-7, 11369-6 #### [facility] CLIA [id number] [address] [place] [address] [place] WBC (Bld) [#/Vol] 7.20 10*3/uL Normal 3.70-11.00 [facility] Comment on above: Order Comment: Speci men Type: BLOOD SPECIMEN [facility] Address: [address] [place] [address] Performed By: #### 7 3752-8, 68032-1, 00386-2 #### [facility] CLIA [id number] [address] [place] [address] [place] Erythrocyte distribution width (RBC) [Ratio] 12.4 % 11.5 - 15.0 % [facility] Hematocrit (Bld) [Volume fraction] 40.5 % 36.0 - 46.0 % [facility] Hemoglobin (Bld) [Mass/Vol] 13.6 g/dL 11.5 - 15.5 g/dL [facility] MCH (RBC) [Entitic mass] 30.8 pg 26.0 - 34.0 pg [facility] MCHC (RBC) [Mass/Vol] 33.6 g/dL 30.5 - 36.0 g/dL [facility] MCV (RBC) [Entitic vol] 91.8 fL 80.0 - 100.0 fL [facility] Nucleated RBC (Bld) [#/Vol] <0.01 k/uL [facility] Platelet mean volume (Bld) [Entitic vol] 10.5 fL 9.0 - 12.7 fL [facility] Platelets (Bld) [#/Vol] 247 10*3/uL 150 - 400 k/uL [facility] RBC (Bld) [#/Vol] 4.41 10*6/uL 3.90 - 5.2 0 m/uL [facility] WBC (Bld) [#/Vol] 7.20 10*3/uL 3.70 - 11. 00 k/uL [facility] HBV surface Ab IA Ql (S)on 10-19-2021 HBV surface Ag Ql (S) Negative Normal Negative [facility] Comment on above: Order Comment: Speci men Type: BLOOD SPECIMEN [facility] Address: [address] [place] [address] Performed By: #### 7 3752-8, 34369-3, 58511-4 #### [facility] CLIA [id number] [address] [place] [address] [place] HCV Ab Ser Qlon 08-19-2022 HCV Ab Ql (S) Negative Normal Negative [facility] Comment on above: Order Comment: Speci men Type: BLOOD SPECIMEN [facility] Address: [address] [place] [address] Result Comment: The result suggests no evidence of active infection with Hepatitis C virus. Should recent infection be suspected, repeat testing may be considered 4-6 weeks after this draw. Performed By: #### 7 3752-8, 33332-7, 01842-0 #### [facility] CLIA [id number] [address] [place] [address] [place] HIV 1+2 Ab IA Qlon 2 HIV 1 and 2 Ab IA.rapid Nom Normal [facility] Comment on above: Order Comment: Speci men Type: BLOOD SPECIMEN [facility] Address: [address] [place] [address] Result Comment: Test not indicated. Performed By: #### 7 3752-8, 40324-9, 83273-7 #### [facility] CLIA [id number] [address] [place] [address] [place] HIV 1+2 Ab+HIV1 p24 Ag IA Ql Non-Reactive Normal Nonreactive [facility] Comment on above: Order Comment: Speci men Type: BLOOD SPECIMEN [facility] Address: [address] [place] [address] Performed By: #### 7 3752-8, 71710-0, 59506-0 #### [facility] CLIA [id number] [address] [place] [address] [place] HIVINT Normal [facility] Comment on above: Order Comment: Speci men Type: BLOOD SPECIMEN [facility] Address: [address] [place], [place] [phone] Result Comment: No e vidence of HIV-1 or HIV-2 infection. Should recent infection be suspected, repeat testing may be considered 2-3 weeks after this draw. [place] Rev. Code 3701.243(E): This information has been [...] or diagnoses. Performed By: #### 7 3752-8, 30112-1, 09309-4 #### [facility] CLIA [id number] [address] [place] [address] [place] No Panel Informationon 08-19 [facility] PAP FLUID CERVICAL SCREENING on 08-19-2022 CASE REPORT Normal [facility] Comment on above: Order Comment: Speci men Type: FLUID SPECIMEN [facility] Address: [address] [place], [place] [phone] Result Comment: Gyne cologic Cytology Report Case: [id number] Authorizing Provider: Braulio Hollingsworth MD Collected: 08/19/2022 02:46 PM Ordering Location: Obstetrics/Gynecology Received: 08/20/2022 12:38 PM First Screen: Shelby Umaña, CT, ASCP Rescreen: Wandy Fraser, CT, ASCP Specimen: Pap, Technical Expert, Screening, CERVICAL SCREENING FLUID Performed By: #### L [id number] #### [facility] CLIA [id number] [address] [place] [address] [place] CLINICAL HISTORY ABNORMAL PAP[LGSIL i n 2020 in [place] Normal [facility] Comment on above: Order Comment: Speci men Type: FLUID SPECIMEN [facility] Address: [address] [place] [address] Performed By: #### L [id number] #### [facility] CLIA [id number] [address] [place] [address] [place] CYTOLOGY INTERPRETATION PAP Normal [facility] Comment on above: Order Comment: Speci men Type: FLUID SPECIMEN [facility] Address: [address] [place] [address] Result Comment: Nega tive for Intraepithelial lesion or malignancy. Performed By: #### L [id number] #### [facility] CLIA [id number] [address] FINAL DIAGNOSIS Normal [facility] Comment on above: Order Comment: Speci men Type: FLUID SPECIMEN [facility] Address: [address] [place] [address] Result Comment: A - CERVICAL SCREENING FLUID Satisfactory for interpretation, Excess blood Negative for Intraepithelial lesion or malignancy. Performed By: #### L [id number] #### [facility] CLIA [id number] [address] [place] [address] [place] FINAL PERFORMING LAB Normal [facility] Comment on above: Order Comment: Speci men Type: FLUID SPECIMEN [facility] Address: [address] [place] [address] Result Comment: Tech nical component, tire recapping machine operator screening performed at [facility], [address] [id number] CLIA# [id number] Diagnostic interpretation performed at [facility], [address] [id number] CLIA# [id number] Chart Changer: Adam Farah M.D. Performed By: #### L [id number] #### [facility] CLIA [id number] [address] [place] [address] [place] GROSS DESCRIPTION Normal [facility] Comment on above: Order Comment: Speci men Type: FLUID SPECIMEN [facility] Address: [address] [place] [address] Result Comment: A. C ERVICAL SCREENING FLUID Glacial Acetic Acid added. Performed By: #### L [id number] #### [facility] CLIA [id number] [address] [place] [address] [place] HPV REQUESTED? Yes, Reflex HPV for ASCUS Normal [facility] Comment on above: Order Comment: Speci men Type: FLUID SPECIMEN [facility] Address: [address] [address] Performed By: #### L [id number] #### [facility] CLIA [id number] [address] [place] [address] [place] LMP 06/21/2022() Normal [facility] Comment on above: Order Comment: Speci men Type: FLUID SPECIMEN [facility] Address: [address] [address] Performed By: #### L [id number] #### [facility] CLIA [id number] [address] [place] [address] [place] PAP DISCLAIMER COMMENT The Pap Smear is a screening test for cervical cancer. False negative results occur with all screening tests, emphasizing the need for rescreening at recommended intervals, and clinical correlation. Normal [facility] Comment on above: Order Comment: Speci men Type: FLUID SPECIMEN [facility] Address: [address] [place] [address] Performed By: #### L [id number] #### [facility] CLIA [id number] [address] [place] [address] [place] PAP PHARMACY SALESPERSON COMMENT This specimen has been analyzed by the ThinPrep Imaging System, an automated imaging and review system, which assists the laboratory in evaluating cells on ThinPrep Pap tests. Following automated imaging, selected francis from every slide are reviewed by a tire recapping machine operator. Normal [facility] Comment on above: Order Comment: Eloise lopez Type: FLUID SPECIMEN [facility] Address: [address] [place] [address] Performed By: #### L [id number] #### [facility] CLIA [id number] [address] [place] [address] OF JUNE RUBELLA IGG ABon 08-19-2022 RUBELLA IGG AB, QUAL Positive Normal Positive [facility] Comment on above: Order Comment: [facility] Type: BLOOD SPECIMEN Ordering Facility: [facility] Address: [address] [place] [address] Result Comment: The result suggests recent or past exposure to Rubella virus or history of Rubella vaccination. Positive result may also be seen due to presence of passively-transferred antibodies. Please correlate with patient's history. Performed By: #### 7 3752-8, 64842-6, 11377-7 #### [facility] CLIA [id number] [address] [place] [address] OF [place]UNE Reagin and Treponema pallidu m IgG and IgM [Interp]on 08-19-2022 SYPHILIS INTERPRETATION Cannot exclude recent Treponemal infection if specimen collected within 7-10 days after appearance of suspect lesions or 2-3 weeks after an exposure. Clinical correlation is required. Normal [facility] Comment on above: Order Comment: [facility] Type: BLOOD SPECIMEN Ordering Facility: [facility] Address: [address] [place] [address] Performed By: #### 7 3752-8, 02283-3, 18249-8 #### [facility] CLIA [id number] [address] [place] [address] [place] T. pallidum IgG+IgM IA Ql (S) Non-Reactive Normal Nonreactive [facility] Comment on above: Order Comment: Speci men Type: BLOOD SPECIMEN Ordering Facility: [facility] Address: [address] [place] [id number] Performed By: #### 7 3752-8, 65950-0, 85052-1 #### [facility] CLIA [id number] [address] [place] [address] [place] TSH BLDon 08-19-2022 TSH Qn 1.190 m[IU]/L 0.270 - 4.200 mIU/L [facility] TSH SerPl-aCncon 08-19-2022 TSH Qn 1.190 m[IU]/L Normal 0.270-4.200 [facility] Comment on above: Order Comment: Speci men Type: BLOOD SPECIMEN Ordering Facility: [facility] Address: [address] [place], [place] [id number] Result Comment: If t he patient is , TSH reference range varies by gestational period: First Trimester (weeks 9-12): 0.180-2.990 mIU/L Second Trimester: 0.110-3.980 mIU/L Third Trimester: 0.480-4.710 mIU/L Rafiq Winston et al. A Practical Approach for the Verifications and Determination of Site- and Trimester-Specific Reference Intervals for Thyroid Function tests in . Thyroid, 2019:29:3:412-420. William E, et al. 2017 Guidelines of the [place] Thyroid Association for the Diagnosis and Management of Thyroid Disease during and the . Thyroid, 2017:27:3:315-389. Performed By: #### 3 016-3 #### [facility] CLIA [id number] [address] [place] [address] [place] TYPE + SCREEN PRENATALon ABO O [facility] HIstorical Ab Scr Status Negative [facility] Rh Nom (Bld) Positive [facility] Type and Screen Expiration 08/22/2022 23:59 [facility] ABO O Normal [facility] Comment on above: Order Comment: Speci men Type: BLOOD SPECIMEN Ordering Facility: [facility] Address: [address] [address] Performed By: #### T SPN #### [facility] CLIA [id number] [address] HISTORICAL AB SCR STATUS Negative Normal [facility] Comment on above: Order Comment: Speci men Type: BLOOD SPECIMEN Ordering Facility: [facility] Address: [address] [address] Performed By: #### T SPN #### [facility] CLIA [id number] [address] OF [facility] Rh Nom (Bld) Positive Normal [facility] Comment on above: Order Comment: Speci men Type: BLOOD SPECIMEN Ordering Facility: [facility] Address: [address] [address] Performed By: #### T SPN #### [facility] CLIA [id number] [address] TYPE AND SCREEN EXPIRATION 08/22/2022 23:59 Normal [facility] Comment on above: Order Comment: Speci men Type: BLOOD SPECIMEN Ordering Facility: [facility] Address: [address] [address] Performed By: #### T SPN #### [facility] CLIA [id number] [address] [place] [address] [facility] OF JUNE URINE OB DIP B/Oon 2 Glucose Ql (U) Negative Neg mg/dL [facility] Protein.monoclonal (U) [Mass/Vol] Negative Neg mg/dL [facility] CONFIRM BLOOD TYPEon 022 ABO O Normal [facility] Comment on above: Order Comment: Speci men Type: BLOOD SPECIMEN Ordering Facility: [facility] Address: [address] [place] [address] Performed By: #### C ONABO #### [facility] CLIA [id number] [address] Rh Nom (Bld) Positive Normal [facility] Comment on above: Order Comment: Speci men Type: BLOOD SPECIMEN Ordering Facility: [facility] Address: [address] [place] [address] Performed By: #### C ONABO #### [facility] CLIA [id number] [address] ED Triage Noteon 08-14-2022 ED Triage Note HNO ID: [id number] Author: Kauhsik Justice APRN.CNP Service: Emergency Medicine Author Type: [...] a week. She was previously seen at [facility] where she states she had an [...] positive send OB triage SIGNATURE: Kaushik Justice APRN.HYDROGENATION OPERATOR Normal [facility] TYPE + SCREEN PRENATALon ABO O Normal [facility] Comment on above: Order Comment: Speci men Type: BLOOD SPECIMEN Ordering Facility: [facility] Address: [address] [place] [address] Performed By: #### T SPN #### [facility] CLIA [id number] [address] HISTORICAL AB SCR STATUS Negative Normal [facility] Comment on above: Order Comment: Speci men Type: BLOOD SPECIMEN Ordering Facility: [facility] Address: [address] [address] Performed By: #### T SPN #### [facility] CLIA [id number] [address] Rh Nom (Bld) Positive Normal [facility] Comment on above: Order Comment: Speci men Type: BLOOD SPECIMEN Ordering Facility: [facility] Address: [address] [place] [address] Performed By: #### T SPN #### [facility] CLIA [id number] [address] TYPE AND SCREEN EXPIRATION 08/17/2022 23:59 Normal [facility] Comment on above: Order Comment: Speci men Type: BLOOD SPECIMEN Ordering Facility: [facility] Address: [address] [place] [address] Performed By: #### T SPN #### [facility] CLIA [id number] [address] [facility] LUZ [facility]IVEIR[facility] ([id number]) 2000 F Date Time Provider Department 08/10/22 [facility] [place] During your visit today, we recorded the following information about you: Nisa Kimvaldez 08/10/2022 9:32 AM Signed Patient was in [...] Status:Closed by NISA MURPHY on 11/11/22 Normal [facility] Absolute lymphocyte counton 08-09-2022 Lymphocytes Auto (Unsp spec) [#/Vol] 1.23 10*3/uL 0.83-4.51 [facility] Work Phone: Basophil percentageon 2021 Basophils/100 WBC (Bld) 0.2 % 0-1 [facility] Work Phone: Bilirubin [Mass/Vol] 0.50 mg/dL 0.20-1.00 [facility] Work Phone: Comment on above: For patients on eltr ombopag therapy, use of Dimension Rickreall TBIL is not recommended. Chloride [Moles/Vol] 107 mmol/L 98-107 [facility] Work Phone: Eosinophils/100 WBC (Bld) 0.3 % 0-5 [facility] Work Phone: Glucose [Mass/Vol] 122 mg/dL 74-106 [facility] Work Phone: Comment on above: Fasting Glucose resu lt from 100 to 125 mg/dL suggests IMPAIRED HOMEOSTASIS per A.D.A. criteria. Neutrophils (Bld) [#/Vol] 4.2 10*3/uL 2.0-7.7 [facility] Work Phone: Neutrophils/100 WBC (Bld) 71.9 % 47-70 [facility] Work Phone: Potassium [Moles/Vol] 3.5 mmol/L 3.5-5.1 [facility] Work Phone: Protein [Mass/Vol] 7.3 g/dL 6.4-8.2 [facility] Work Phone: Sodium [Moles/Vol] 139 mmol/L 136-145 [facility] Work Phone: WBC (Bld) [#/Vol] 5.9 10*3/uL 4.4-11.0 [facility] Work Phone: Basophil percentage 0 SEEN /hpf 0-5 [facility] Work Phone: Beta hCG serum qualon 2021 Beta HCG ( test) Ql Negative [facility] Work Phone: Comment on above: TEST is *P OSITIVE* Bilirubin Test strip Ql (U)o n 08-09-2022 Bilirubin Ql (U) Negative Negative [facility] Work Phone: Blood erythrocytes count (nu mber/volume)on 08-09-2022 RBC (Bld) [#/Vol] 4.26 10*6/uL 4.2-5.4 [facility] Work Phone: Blood hemoglobin measurement (mass/volume)on 08-09-2022 Hemoglobin (Bld) [Mass/Vol] 13.4 g/dL 12.0-15.0 [facility] Work Phone: [phone] Blood lymphocytes/100 leukoc yteson 08-09-2022 Lymphocytes/100 WBC (Bld) 21.0 % 19-41 [facility] Work Phone: [phone] Blood monocytes/100 leukocyt eson 08-09-2022 Monocytes/100 WBC (Bld) 6.3 % 0-10 [facility] Work Phone: Blood platelet mean volumeon 08-09-2022 Platelet mean volume (Bld) [Entitic vol] 10.1 fL 6.2-12.0 [facility] Work Phone: Determination of erythrocyte mean corpuscular volume (MCV)on 08-09-2022 MCV (RBC) [Entitic vol] 91.8 fL 81-99 [facility] Work Phone: Hematocrit Auto (Bld) [Volum e fraction]on 08-09-2022 Hematocrit (Bld) [Volume fraction] 39.1 % 37-47 [facility] Work Phone: Ketones Test strip Ql (U)on 08-09-2022 Ketones Ql (U) Negative Negative [facility] Work Phone: Laboratory - Chemistry and C hemistry - challengeon 08-09-2022 ALP [Catalytic activity/Vol] 56 U/L 45-117 [facility] Work Phone: [phone] ALT [Catalytic activity/Vol] 67 U/L 13-56 [facility] Work Phone: [phone] CO2 [Moles/Vol] 25.0 mmol/L 21.0-32.0 [facility] Work Phone: [phone] Globulin (S) [Mass/Vol] 3.5 g/dL 2.2-4.2 [facility] Work Phone: [phone] Urea nitrogen/Creatinine [Mass ratio] 9.7 mg/mg 10-20 [facility] Work Phone: [phone] Laboratory - Hematology and Cell countson 08-09-2022 Erythrocyte distribution width (RBC) [Entitic vol] 42.5 fL 35.1-43.9 [facility] Work Phone: [phone] Erythrocyte distribution width (RBC) [Ratio] 12.8 % 11.6-14.6 [facility] Work Phone: [phone] Immature granulocytes/100 WBC (Bld) 0.300 % 0.0-0.9 [facility] Work Phone: [phone] Comment on above: IG% - Immature Granu locytes (promyelocytes, myelocytes and metamyelocytes) > 1% indicates that a LEFT SHIFT is Present. MCH (RBC) [Entitic mass] 31.5 pg 27.0-32.0 [facility] Work Phone: [phone] Nucleated RBC/100 WBC (Bld) [Ratio] 0 % 0-5 [facility] Work Phone: [phone] MCHC Auto (RBC) [Mass/Vol]on 08-09-2022 MCHC (RBC) [Mass/Vol] 34.3 g/dL 32-36 [facility] Work Phone: [phone] Mucus LM Ql (Urine sed)on Mucus Ql (Urine sed) 0 SEEN /hpf [facility] Work Phone: [phone] Nitrite Test strip Ql (U)on 08-09-2022 Nitrite Ql (U) Negative Negative [facility] Work Phone: [phone] Panel Informationon 08-09 Estimated Creatinine Clearance Calc 81.20 ml/min [facility] Work Phone: [phone] Estimated GFR (MDRD) Amer 111 mL/min >60 [facility] Work Phone: Comment on above: GFR Calc Estimated GFR (MDRD) Non-Af Amer 91 mL/min >60 [facility] Work Phone: Comment on above: Non- GFR Calc Platelets bldon 08-09-2022 Platelets (Bld) [#/Vol] 224 10*3/uL 150-450 [facility] Work Phone: Protein Test strip Ql (U)on 08-09-2022 Protein Ql (U) Negative Negative [facility] Work Phone: Serum or plasma albumin sabino urement (mass/volume)on 08-09-2022 Albumin [Mass/Vol] 3.8 g/dL 3.2-5.0 [facility] Work Phone: Serum or plasma albumin/glob ulin mass ratioon 08-09-2022 Albumin/Globulin [Mass ratio] 1.1 {ratio} 0.9-2.4 [facility] Work Phone: Serum or plasma calcium sabino urement (mass/volume)on 08-09-2022 Calcium [Mass/Vol] 9.2 mg/dL 8.5-10.1 [facility] Work Phone: Serum or plasma choriogonado tropin detectionon 08-09-2022 H[place] ( [place]) [place] [address] mIU/mL <4 [facility] Work Phone: Comment on above: hCG levels with Gest ational AgeGestational Age hCG mIU/mL (IU/L)0.2 - 1 week 5 - 501-2 weeks 50 - 5002-3 weeks 100 - 33084-2 weeks 500 - 862916-2 weeks 1000 - 325981-4 weeks 41386 - 100,0006-8 weeks 28167 - 200,0002-3 months 13688 - 100,000 Serum or plasma creatinine m easurement (mass/volume)on 08-09-2022 Creatinine [Mass/Vol] 0.82 mg/dL 0.55-1.02 [facility] Work Phone: Comment on above: The validity of the calculated GFR & GFRAA in patients over 70 years has not been determined. Clinical correlation is essential. Serum or plasma urea nitroge n measurement (mass/volume)on 08-09-2022 Urea nitrogen [Mass/Vol] 8 mg/dL 7-18 [facility] Work Phone: Squamous epithelial cells de tection in urine sediment by light microscopyon 08-09-2022 Epithelial cells.squamous LM Ql (Urine sed) 0-5 SEEN /hpf 5-10 [facility] Work Phone: [phone] Thin prep Papanicolaou smear with manual screeningon 08-09-2022 Thin prep Papanicolaou smear with manual screening 38 U/L 15-37 [facility] Work Phone: [phone] Thin prep Papanicolaou smear with manual screening 7 5-15 [facility] Work Phone: [phone] Urine blood detectionon 07-13 RBC Ql (U) 25 /ul Negative [facility] Work Phone: [phone] RBC Ql (U) 0 SEEN /hpf 0-5 [facility] Work Phone: [phone] Urine clarityon 08-09-2022 Clarity (U) Clear Clear [facility] Work Phone: Urine color determinationon 08-09-2022 Color (U) Yellow Yellow [facility] Work Phone: Urine glucose detectionon Glucose Ql (U) Normal mg/dl Normal [facility] Work Phone: Urine leukocyte esterase det ection by dipstickon 08-09-2022 Leukocyte esterase Test strip Ql (U) 25 /ul Negative [facility] Work Phone: Urine pHon 08-09-2022 pH (U) 7.0 [pH] 5.0 - 8.0 [facility] Work Phone: Urine sediment bacteria coun t by microscopy (number/high power field)on 08-09-2022 Bacteria LM.HPF (Urine sed) [#/Area] 0 /[HPF] None Seen [facility] Work Phone: Urine specific gravity measu rementon 08-09-2022 Specific gravity (U) [Rel density] 1.010 1.002-1.030 [facility] Work Phone: Urobilinogen Auto test strip Ql (U)on 08-09-2022 Urobilinogen Ql (U) Normal mg/dl Normal [facility] Work Phone: CBCon 08-04-2022 Hematocrit (Bld) [...] vol] 9.9 fL 7.4 - 12.4 fL [facility] Comment on above: MPV is a calculated measurement using platelet volume ratio. Platelets (Bld) [#/Vol] 217 10*3/uL 140 - 440 10*3/uL [facility] RBC (Bld) [#/Vol] 4.27 10*6/uL 3.80 - 5.2 0 10*6/uL [facility] WBC (Bld) [#/Vol] 5.4 10*3/uL 3.6 - 10.7 10*3/uL [facility] Test Performed by [facility] [facility], [address] [place] [address] Adam. , [address] LAB [facility] HCG, QUANTITATIVE, on 08-04-2022 hCG Quant 3840 m[IU]/mL [facility] Comment on above: Females < 5 [...] or gestational trophoblastic disease. Test Performed by [facility], [address] LAB [facility] Hemogram 08-04-2022 Erythrocyte distribution width (RBC) [Ratio] 12.8 % Normal 11.5-14.5 [facility] Comment on above: Performed By: #### H EMOG, QWNT5 #### [facility] [address] [place] [address] Hematocrit (Bld) [Volume fraction] 39.2 % Normal 35.0-47.0 [facility] Comment on above: Performed By: #### H EMOG, QWNT5 #### [facility] [address] [place] [address] Hemoglobin (Bld) [Mass/Vol] 13.4 g/dL Normal 11.7-16.0 [facility] Comment on above: Performed By: #### H EMOG, QWNT5 #### [facility] [address] [place] [address] MCH (RBC) [Entitic mass] 31.4 pg Normal 26.0-34.0 [facility] Comment on above: Performed By: #### H EMOG, QWNT5 #### [facility] [address] [place] [address] MCHC 34.2 % Normal 32.0-36.0 [facility] Comment on above: Performed By: #### H EMOG QWNT5 #### [facility] [address] [place] [address] MCV (RBC) [Entitic vol] 91.8 fL Normal 79.0-98.0 [facility] Comment on above: Performed By: #### H LIONEL QWNT5 #### [facility] [address] [place] [address] Platelet mean volume (Bld) [Entitic vol] 9.9 fL Normal 7.4-12.4 [facility] Comment on above: Result Comment: MPV is a calculated measurement using platelet volume ratio. Performed By: #### H LIONEL QWNT5 #### [facility] [address] [place] [address] Platelets (Bld) [#/Vol] 217 10*3/uL Normal 140-440 [facility] Comment on above: Performed By: #### H LIONEL QWNT5 #### [facility] [address] [place] [address] RBC (Bld) [#/Vol] 4.27 10*6/uL Normal 3.80-5.20 [facility] Comment on above: Performed By: #### H LIONEL QWNT5 #### [facility] [address] [place] [address] WBC (Bld) [#/Vol] 5.4 10*3/uL Normal 3.6-10.7 [facility] Comment on above: Performed By: #### H LIONEL QWNT5 #### [facility] [address] [place] [address] GELon 08-04-2022 GEL ABO Group: O Rh, Gel: POS Antibody Screen Gel: NEG Normal [facility] Comment on above: Performed By: #### P NGL #### [facility] TYPE AND SCREENon 1 ABO Grouping O [facility] Work Phone: Rh Type Positive [facility] Work Phone: Test Performed by [facility], [address] , [address] LAB [facility] Work Phone: US OB TRANSVAGINALon 022 Patient Name: LUZ OLIVEIRA Ultrasound ACCESSION EXAM DATE/TIME PROCEDURE ORDERING PROVIDER [id number] 08/04/2022 12:05 EDT [place] [id number] ARANGO Transvaginal CPT code 84375 Reason For Exam (US Transvaginal) 7 weeks [...] ALFRED Transcribed Date and Time: 08/04/2022 12:31 [facility] Silas Pickens DO - 08/04/2022 Patient Name: LUZ OLIVEIRA Ultrasound ACCESSION EXAM DATE/TIME PROCEDURE ORDERING PROVIDER [id number] 08/04/2022 12:05 EDT US MELANIA OCAMPO Transvaginal CPT code 03068 Reason For Exam (US Transvaginal) 7 weeks [...] TRANSVAGINALOrdered By : Silas Pickens on 08-04-2022 [facility] Work Phone: US Transvaginalon 08-04-2022 US Transvaginal Patient Name: LUZ OLIVEIRA Ultrasound ACCESSION EXAM DATE/TIME PROCEDURE ORDERING PROVIDER [id number] 08/04/2022 12:05 EDT [place] [id number] -AUSTYNMELANIA ALLAN Transvaginal CPT code 64014 Reason For Exam (US Transvaginal) 7 weeks [...] Transcribed Date and Time: 08/04/2022 12:31 Normal [facility] hCG Quantitativeon hCG Quantitative 3840 m[IU]/mL Normal [facility] Comment on above: Result Comment: Fema les [...] gestational trophoblastic disease. Performed By: #### [facility] #### [facility] [address] [place] [address] Kelly 07-20-2022 [facility] Letter Text Normal [facility] Eliecer 07-09-2022 [place] Telephone (JOHNThe New HiveHARJINDER) LUZ OLIVEIRA ([id number]) 2000 F Date Time Provider Department 07/09/22 LEDY VAUGHN During your visit today, we recorded the following information about you: Verónica Codey 07/09/2022 12:29 PM Signed No Show Documentation [...] Yes Is this the Third or Fourth "No Show"? Sarina Alegre July 09, 2022 12:24 PM [...] (FLONASE) 50 mcg/actuation nasal spray Use 1 [place] in each nostril once daily. 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] 07/10/2014 Headache [R51] 07/10/2014 Unintentional weight loss [R63.4] 07/10/2014 Papanicolaou smear of cervix with low grade squ*05/21/2021 Letter Text Encounter Status:Closed by VERÓNICA ALEGRE on 07/09/22 Normal [facility] Absolute lymphocyte counton 06-29-2022 Lymphocytes Auto (Unsp spec) [#/Vol] 1.79 10*3/uL 0.83-4.51 [facility] Work Phone: Basophil percentageon 2021 Basophil percentage 0-5 SEEN /hpf 0-5 [facility] Work Phone: Basophils/100 WBC (Bld) 0.1 % 0-1 [facility] Work Phone: Chloride [Moles/Vol] 106 mmol/L 98-107 [facility] Work Phone: Eosinophils/100 WBC (Bld) 0.2 % 0-5 [facility] Work Phone: Glucose [Mass/Vol] 98 mg/dL 74-106 [facility] Work Phone: Neutrophils (Bld) [#/Vol] 6.1 10*3/uL 2.0-7.7 [facility] Work Phone: Neutrophils/100 WBC (Bld) 72.2 % 47-70 [facility] Work Phone: Potassium [Moles/Vol] 3.9 mmol/L 3.5-5.1 [facility] Work Phone: Sodium [Moles/Vol] 142 mmol/L 136-145 [facility] Work Phone: WBC (Bld) [#/Vol] 8.5 10*3/uL 4.4-11.0 [facility] Work Phone: Beta hCG serum qualon 2021 Beta HCG ( test) Ql Negative [facility] Work Phone: Bilirubin Test strip Ql (U)o n 06-29-2022 Bilirubin Ql (U) Negative Negative [facility] Work Phone: Blood erythrocytes count (nu mber/volume)on 06-29-2022 RBC (Bld) [#/Vol] 4.44 10*6/uL 4.2-5.4 [facility] Work [facility]: Blood hemoglobin measurement (mass/volume)on 06-29-2022 Hemoglobin (Bld) [Mass/Vol] 13.7 g/dL 12.0-15.0 [facility] Work Phone: Blood lymphocytes/100 leukoc yteson 06-29-2022 Lymphocytes/100 WBC (Bld) 21.2 % 19-41 [facility] Work Phone: Blood monocytes/100 leukocyt eson 06-29-2022 Monocytes/100 WBC (Bld) 5.8 % 0-10 [facility] Work Phone: Blood platelet mean volumeon 06-29-2022 Platelet mean volume (Bld) [Entitic vol] 9.9 fL 6.2-12.0 [facility] Work Phone: Determination of erythrocyte mean corpuscular volume (MCV)on 06-29-2022 MCV (RBC) [Entitic vol] 90.5 fL 81-99 [facility] Work Phone: Hematocrit Auto (Bld) [Volum e fraction]on 06-29-2022 Hematocrit (Bld) [Volume fraction] 40.2 % 37-47 [facility] Work Phone: Ketones Test strip Ql (U)on 06-29-2022 Ketones Ql (U) Negative Negative [facility] Work Phone: Laboratory - Chemistry and C hemistry - challengeon 06-29-2022 CO2 [Moles/Vol] 28.0 mmol/L 21.0-32.0 [facility] Work Phone: Urea nitrogen/Creatinine [Mass ratio] 23.1 mg/mg 10-20 [facility] Work Phone: Laboratory - Hematology and Cell countson 06-29-2022 Erythrocyte distribution width (RBC) [Entitic vol] 41.0 fL 35.1-43.9 [facility] Work Phone: [phone] Erythrocyte distribution width (RBC) [Ratio] 12.7 % 11.6-14.6 [facility] Work Phone: [phone] Immature granulocytes/100 WBC (Bld) 0.500 % 0.0-0.9 [facility] Work Phone: Comment on above: IG% - Immature Granu locytes (promyelocytes, myelocytes and metamyelocytes) > 1% indicates that a LEFT SHIFT is Present. MCH (RBC) [Entitic mass] 30.9 pg 27.0-32.0 [facility] Work Phone: Nucleated RBC/100 WBC (Bld) [Ratio] 0 % 0-5 [facility] Work Phone: [phone] MCHC Auto (RBC) [Mass/Vol]on 06-29-2022 MCHC (RBC) [Mass/Vol] 34.1 g/dL 32-36 [facility] Work Phone: Mucus LM Ql (Urine sed)on Mucus Ql (Urine sed) 0 SEEN /hpf [facility] Work Phone: [phone] Nitrite Test strip Ql (U)on 06-29-2022 Nitrite Ql (U) Negative Negative [facility] Work Phone: No Panel Informationon 06-29 Estimated Creatinine Clearance Calc 89.98 ml/min [facility] Work Phone: [phone] Estimated GFR (MDRD) Amer 126 mL/min >60 [facility] Work Phone: [phone] Comment on above: GFR Calc Estimated GFR (MDRD) Non-Af Amer 104 mL/min >60 [facility] Work Phone: Comment on above: Non- GFR Calc Platelets bldon 06-29-2022 Platelets (Bld) [#/Vol] 287 10*3/uL 150-450 [facility] Work Phone: [phone] Test strip Ql (U)on 06-29-2022 Protein Ql (U) 30 mg/dl Negative [facility] Work Phone: [phone] Serum or plasma calcium sabino urement (mass/volume)on 06-29-2022 Calcium [Mass/Vol] 9.7 mg/dL 8.5-10.1 [facility] Work Phone: [phone] Serum or plasma creatinine m easurement (mass/volume)on 06-29-2022 Creatinine [Mass/Vol] 0.74 mg/dL 0.55-1.02 [facility] Work Phone: Comment on above: The validity of the calculated GFR & GFRAA in patients over 70 years has not been determined. Clinical correlation is essential. Serum or plasma urea nitroge n measurement (mass/volume)on 06-29-2022 Urea nitrogen [Mass/Vol] 17 mg/dL 7-18 [facility] Work Phone: Squamous epithelial cells de tection in urine sediment by light microscopyon 06-29-2022 Epithelial cells.squamous LM Ql (Urine sed) 0-5 SEEN /hpf 5-10 [facility] Work Phone: Thin prep Papanicolaou smear with manual screeningon 06-29-2022 Thin prep Papanicolaou smear with manual screening 8 5-15 [facility] Work Phone: Urine blood detectionon 06-11 RBC Ql (U) 25 /ul Negative [facility] Work Phone: RBC Ql (U) 0-5 SEEN /hpf 0-5 [facility] Work Phone: Urine clarityon 06-29-2022 Clarity (U) Clear Clear [facility] Work Phone: Urine color determinationon 06-29-2022 Color (U) Yellow Yellow [facility] Work Phone: Urine glucose detectionon Glucose Ql (U) Normal mg/dl Normal [facility] Work Phone: Urine leukocyte esterase det ection by dipstickon 06-29-2022 Leukocyte esterase Test strip Ql (U) 25 /ul Negative [facility] Work Phone: Urine pHon 06-29-2022 pH (U) 6.5 [pH] 5.0 - 8.0 [facility] Work Phone: Urine sediment bacteria coun t by microscopy (number/high power field)on 06-29-2022 Bacteria LM.HPF (Urine sed) [#/Area] 0 /[HPF] None Seen [facility] Work Phone: Urine specific gravity measu rementon 06-29-2022 Specific gravity (U) [Rel density] 1.010 1.002-1.030 [facility] Work Phone: Urobilinogen Auto test strip Ql (U)on 06-29-2022 Urobilinogen Ql (U) Normal mg/dl Normal [facility] Work Phone: CBC W Auto Differential pane l (Bld)on 05-31-2022 Basophils (Bld) [#/Vol] 10*3/uL Normal <0.11 [facility] Comment on above: Order Comment: Speci men Type: BLOOD SPECIMENOrdering Facility: [facility] Address: [address] [place] [address] Performed By: #### 5 7021-8 ####[facility] LABORATORYCLIA [id number] [address] [place] Basophils/100 WBC (Bld) 0.0 % Normal [facility] Comment on above: Order Comment: Speci men Type: BLOOD SPECIMENOrdering Facility: [facility] Address: [address] [place] [address] Performed By: #### 5 7021-8 ####[facility] LABORATORYCLIA [id number] [address] [place] Differential cell count method Nom (Bld) Auto Normal [facility] Comment on above: Order Comment: Speci men Type: BLOOD SPECIMENOrdering Facility: [facility] Address: [address] [place] [address] Performed By: #### 5 7021-8 ####[facility] LABORATORYCLIA [id number] [place] [address] [place] Eosinophils (Bld) [#/Vol] 10*3/uL Normal <0.46 [facility] Comment on above: Order Comment: Speci men Type: BLOOD SPECIMENOrdering Facility: [facility] Address: [address] [address] Performed By: #### 5 7021-8 ####[facility]ORATORYCLIA [id number] [address] Eosinophils/100 WBC (Bld) 0.2 % Normal [facility] Comment on above: Order Comment: Speci men Type: BLOOD SPECIMENOrdering Facility: [facility] Address: [address] [place] [address] Performed By: #### 5 7021-8 ####[facility] LABORATORYCLIA [id number] [address] STATES OF [facility] Erythrocyte distribution width (RBC) [Ratio] 12.5 % Normal 11.5-15.0 [facility] Comment on above: Order Comment: Speci men Type: BLOOD SPECIMENOrdering Facility: [facility] Address: [address] [place] [address] Performed By: #### 5 7021-8 ####[facility] LABORATORYCLIA [id number] [address] Hematocrit (Bld) [Volume fraction] 38.8 % Normal 36.0-46.0 [facility] Comment on above: Order Comment: Speci men Type: BLOOD SPECIMENOrdering Facility: [facility] Address: [address] [place] [address] Performed By: #### 5 7021-8 ####[facility]ORATORYCLIA [id number] [address] [place] Hemoglobin (Bld) [Mass/Vol] 13.4 g/dL Normal 11.5-15.5 [facility] Comment on above: Order Comment: Speci men Type: BLOOD SPECIMENOrdering Facility: [facility] Address: [address] [place] [address] Performed By: #### 5 7021-8 ####[facility]ORATORYCLIA [id number] [address] IMMATURE GRAN % 0.2 % Normal [facility] Comment on above: Order Comment: Speci men Type: BLOOD SPECIMENOrdering Facility: [facility] Address: [address] [place] [address] Performed By: #### 5 7021-8 ####[facility]ORATORYCLIA [id number] [address] STATES [facility] IMMATURE GRAN ABS <0.03 Normal <0.10 [facility] Comment on above: Order Comment: Speci men Type: BLOOD SPECIMENOrdering Facility: [facility] Address: [address] [place] [address] Performed By: #### 5 7021-8 ####[facility]ORATORYCLIA [id number] [address] Lymphocytes (Bld) [#/Vol] 1.08 10*3/uL Normal 1.00-4.00 [facility] Comment on above: Order Comment: Speci men Type: BLOOD SPECIMENOrdering Facility: [facility] Address: [address] [place] [address] Performed By: #### 5 7021-8 ####[facility] LABORATORYCLIA [id number] [address] Lymphocytes/100 WBC (Bld) 26.3 % Normal [facility] Comment on above: Order Comment: Speci men Type: BLOOD SPECIMENOrdering Facility: [facility] Address: [address] [place] [address] Performed By: #### 5 7021-8 ####[facility] LABORATORYCLIA [id number] [address] MCH (RBC) [Entitic mass] 30.2 pg Normal 26.0-34.0 [facility] Comment on above: Order Comment: Speci men Type: BLOOD SPECIMENOrdering Facility: [facility] Address: [address] [place] [address] Performed By: #### 5 7021-8 ####[facility]ORATORYCLIA [id number] [address] MCHC (RBC) [Mass/Vol] 34.5 g/dL Normal 30.5-36.0 [facility] Comment on above: Order Comment: Speci men Type: BLOOD SPECIMENOrdering Facility: [facility] Address: [address] [place] [address] Performed By: #### 5 7021-8 ####[facility]ORATORYCLIA [id number] [address] MCV (RBC) [Entitic vol] 87.6 fL Normal 80.0-100.0 [facility] Comment on above: Order Comment: Speci men Type: BLOOD SPECIMENOrdering Facility: [facility] Address: [address] [place] [address] Performed By: #### 5 7021-8 ####[facility]ORATORYCLIA [id number] [address] STATES OF [facility] Monocytes (Bld) [#/Vol] 0.34 10*3/uL Normal <0.87 [facility] Comment on above: Order Comment: Speci men Type: BLOOD SPECIMENOrdering Facility: [facility] Address: [address] [place] [address] Performed By: #### 5 7021-8 ####[facility]ORATORYCLIA [id number] [address] Monocytes/100 WBC (Bld) 8.3 % Normal [facility] Comment on above: Order Comment: Speci men Type: BLOOD SPECIMENOrdering Facility: [facility] Address: [address] [place] [address] Performed By: #### 5 7021-8 ####[facility] LABORATORYCLIA [id number] [address] STATES [facility] Neutrophils (Bld) [#/Vol] 2.66 10*3/uL Normal 1.45-7.50 [facility] Comment on above: Order Comment: Speci men Type: BLOOD SPECIMENOrdering Facility: [facility] Address: [address] [place] [address] Performed By: #### 5 7021-8 ####[facility] LABORATORYCLIA [id number] [address] [facility] Neutrophils/100 WBC (Bld) 65.0 % Normal [facility] Comment on above: Order Comment: Speci men Type: BLOOD SPECIMENOrdering Facility: [facility] Address: [address] [place] [address] Performed By: #### 5 7021-8 ####[facility] LABORATORYCLIA [id number] [address] [place] Nucleated RBC (Bld) [#/Vol] 10*3/uL Normal <0.01 [facility] Comment on above: Order Comment: Speci men Type: BLOOD SPECIMENOrdering Facility: [facility] Address: [address] [place] [address] Performed By: #### 5 7021-8 ####[facility] LABORATORYCLIA [id number] [address] Nucleated RBC/100 WBC (Bld) [Ratio] 0.0 /100 WBC Normal [facility] Comment on above: Order Comment: Speci men Type: BLOOD SPECIMENOrdering Facility: [facility] Address: [address] [place] [address] Performed By: #### 5 7021-8 ####[facility]ORATORYCLIA [id number] [address] [place] Platelet mean volume (Bld) [Entitic vol] 9.7 fL Normal 9.0-12.7 [facility] Comment on above: Order Comment: Speci men Type: BLOOD SPECIMENOrdering Facility: [facility] Address: [address] [place], [place] [address] Performed By: #### 5 7021-8 ####[facility]ORATORYCLIA [id number] [address] [place] Platelets (Bld) [#/Vol] 178 10*3/uL Normal 150-400 [facility] Comment on above: Order Comment: Speci men Type: BLOOD SPECIMENOrdering Facility: [facility] Address: [address] [place], [place] [address] Performed By: #### 5 7021-8 ####[facility] LABORATORYCLIA [id number] [place], [place] [id number] [place] [address] OF [facility] RBC (Bld) [#/Vol] 4.43 10*6/uL Normal 3.90-5.20 [facility] Comment on above: Order Comment: Speci men Type: BLOOD SPECIMENOrdering Facility: [facility] Address: [address] [place] [address] Performed By: #### 5 7021-8 ####[facility]ORATORYCLIA [id number] [address] WBC (Bld) [#/Vol] 4.10 10*3/uL Normal 3.70-11.00 [facility] Comment on above: Order Comment: Speci men Type: BLOOD SPECIMENOrdering Facility: [facility] Address: [address] [place] [address] Performed By: #### 5 7021-8 ####[facility] LABORATORYCLIA [id number] [address] Comprehensive metabolic 2000 panelon 05-31-2022 Albumin [Mass/Vol] 4.5 g/dL Normal 3.9-4.9 [facility] Comment on above: Order Comment: Speci men Type: BLOOD SPECIMENOrdering Facility: [facility] Address: [address] [place] [address] Performed By: #### 3 040-3, 59285-1, 34814-8 ####[facility] LABORATORYCLIA [id number] [address] ALP [Catalytic activity/Vol] 60 U/L Normal 34-123 [facility] Comment on above: Order Comment: Speci men Type: BLOOD SPECIMENOrdering Facility: [facility] Address: [address] [place] [address] Performed By: #### 3 040-3, 65067-6, ####[facility] LABORATORYCLIA [id number] [address] ALT With P-5'-P [Catalytic activity/Vol] 55 U/L High 7-38 [facility] Comment on above: Order Comment: Speci men Type: BLOOD SPECIMENOrdering Facility: [facility] Address: [address] [place] [address] Performed By: #### 3 040-3, , ####[facility]ORATORYCLIA [id number] [address] Anion gap [Moles/Vol] 12 mmol/L Normal 9-18 [facility] Comment on above: Order Comment: Speci men Type: BLOOD SPECIMENOrdering Facility: [facility] Address: [address] [place] [address] Performed By: #### 3 040-3, 71192-2, ####[facility]ORATORYCLIA [id number] [address] AST With P-5'-P [Catalytic activity/Vol] 57 U/L High 13-35 [facility] Comment on above: Order Comment: Speci men Type: BLOOD SPECIMENOrdering Facility: [facility] Address: [address] [place] [address] Performed By: #### 3 040-3, , ####[facility] LABORATORYCLIA [id number] [address] STATES OF [facility] Bilirubin [Mass/Vol] 0.5 mg/dL Normal 0.2-1.3 [facility] Comment on above: Order Comment: Speci men Type: BLOOD SPECIMENOrdering Facility: [facility] Address: [address] [place] [address] Performed By: #### 3 040-3, , ####[facility] LABORATORYCLIA [id number] [address] STATES OF [facility] Calcium [Mass/Vol] 8.9 mg/dL Normal 8.5-10.2 [facility] Comment on above: Order Comment: Speci men Type: BLOOD SPECIMENOrdering Facility: [facility] Address: [address] [place] [address] Performed By: #### 3 040-3, , ####[facility]ORATORYCLIA [id number] [place] [address] [place] Chloride [Moles/Vol] 102 mmol/L Normal 97-105 [facility] Comment on above: Order Comment: Speci men Type: BLOOD SPECIMENOrdering Facility: [facility] Address: [address] [place] [address] Performed By: #### 3 040-3, , ####[facility]ORATORYCLIA [id number] [address] [place] CO2 [Moles/Vol] 25 mmol/L Normal 22-30 [facility] Comment on above: Order Comment: Speci men Type: BLOOD SPECIMENOrdering Facility: [facility] Address: [address] [place] [address] Performed By: #### 3 040-3, , ####[facility]ORATORYCLIA [id number] [address] [place] Creatinine [Mass/Vol] 0.74 mg/dL Normal 0.58-0.96 [facility] Comment on above: Order Comment: Speci men Type: BLOOD SPECIMENOrdering Facility: [facility] Address: [address] [place] [address] Performed By: #### 3 040-3, 99191-9, ####[facility]ORATORYCLIA [id number] [address] ESTIMATED GLOMERULAR FILTRATION RATE 117 mL/min/1.73m??? Normal >=60 [facility] Comment on above: Order Comment: Speci men Type: BLOOD SPECIMENOrdering Facility: [facility] Address: [address] [place] [address] Result Comment: Tierra mated Glomerular Filtration Rate [...] actual GFR. Performed By: #### 3 040-3, 35887-0, ####[facility] LABORATORYCLIA [id number] [place] [address] [place] Glucose [Mass/Vol] 91 mg/dL Normal 74-99 [facility] Comment on above: Order Comment: Speci men Type: BLOOD SPECIMENOrdering Facility: [facility] Address: [address] [place] [address] Result Comment: The [place] [employer] Association (ADA) provides guidance for cutoff [...] Standards of Medical Care in Diabetes 2016, [place] [employer]. Diabetes Care. 2016.39(Suppl 1). Performed By: #### 3 040-3, 49126-6, ####[facility] CENTERIA [id number] [place] [id number] [place] Potassium [Moles/Vol] 3.6 mmol/L Low 3.7-5.1 [facility] Comment on above: Order Comment: [place] men Type: BLOOD SPECIMENOrdering Facility: [facility] Address: [address] [id number] Performed By: #### 3 040-3, 70089-7, ####[facility] LABORATORYCLIA [id number] [place] [address] OF [facility] Protein [Mass/Vol] 6.7 g/dL Normal 6.3-8.0 [facility] Comment on above: Order Comment: Speci men Type: BLOOD SPECIMENOrdering Facility: [facility] Address: [address] [place] [address] Performed By: #### 3 040-3, 21322-7, 94520-4 ####[facility] LABORATORYCLIA [id number] [address] OF [facility] Sodium [Moles/Vol] 139 mmol/L Normal 136-144 [facility] Comment on above: Order Comment: Speci men Type: BLOOD SPECIMENOrdering Facility: [facility] Address: [address] [place] [address] Performed By: #### 3 040-3, 88180-1, 70260-6 ####[facility]ORATORYCLIA [id number] [address] Urea nitrogen [Mass/Vol] 7 mg/dL Normal 7-21 [facility] Comment on above: Order Comment: Speci men Type: BLOOD SPECIMENOrdering Facility: [facility] Address: [address] [place] [address] Performed By: #### 3 040-3, 78409-8, ####[facility] LABORATORYCLIA [id number] [address] OF [facility] ED NOTEon 05-31-2022 ED NOTE HNO ID: [id number] Author: Agueda Meng RN Service: Emergency Medicine Author Type: Registered Nurse Type: ED Notes Filed: 05/31/2022 2:42 PM Note Text: Pt alert and oriented x 4, speaking in full sentences with unlabored breathing. Pt verbalizes understanding of discharge paperwork. Pt ambulated from department without difficulty. Normal [facility] ED NOTE HNO ID: [id number] Author: Agueda Meng RN Service: Emergency Medicine [...] Is at bedside at this time. Normal [facility] ED NOTE HNO ID: [id number] Author: Agueda Meng RN Service: Emergency Medicine Author Type: Registered Nurse Type: ED Notes Filed: 05/31/2022 12:14 PM Note Text: POC BG 80 Normal [facility] ED NOTE HNO ID: [id number] Author: Agueda Meng RN Service: Emergency Medicine Author Type: Registered Nurse Type: ED Notes Filed: 05/31/2022 11:36 AM Note Text: Pt c/o weakness along with generalized illness symptoms. Pt placed on the bedside playground monitor at this time. Normal [facility] ED NOTE HNO ID: [id number] Author: Danuta Staley RN Service: ? Author Type: Registered Nurse Type: ED Notes Filed: 05/31/2022 11:04 AM Note Text: Bed: 46-ED Expected date: Expected time: Means of arrival: Comments: triage Normal [facility] ED PROV NOTEon 05-31-2022 ED PROV NOTE HNO ID: [id number] Author: Hiwot Hudson MD Service: Emergency Medicine [...] (Oral) Resp 18 Ht 154.9 cm (5' 1") Wt 63.5 kg (140 lb) LMP 12/14/2021 [...] PM Hiwot Hudson MD 05/31/22 1548 Normal [facility] ED PROV NOTE HNO ID: [id number] Author: Hiwot Hudson MD Service: Emergency Medicine [...] Diagnosis Date Cognitive disorder IEP per the [facility] Kidney stone [...] 63.5 kg (140 lb) 1.549 m (5' 1") Physical Exam Vitals reviewed. Constitutional: General: She [...] ED Course (more content not included)... Normal [facility] EKGon 05-31-2022 Electrocardiogram Ventricular Rate : 7 1 BPM Atrial Rate : 71 BPM P-R Interval : 118 ms QRS Duration : 84 ms Q-T Interval : 448 ms QTC Calculation(Bazett) : 486 ms Calculated P [place] : 23 degrees Calculated R [place] : 58 degrees Calculated T [place] : 27 degrees NORMAL SINUS RHYTHM NONSPECIFIC T WAVE ABNORMALITY PROLONGED QT ABNORMAL ECG NO PREVIOUS ECGS AVAILABLE Confirmed by KAUSHIK GUADALUPE MD ([id number]) on 06/04/2022 3:38:07 AM NAME : LUZ OLIVEIRA PID : [id number] : 2000 Gender : Female Race : ORD : Procedure Date : May 31 2022 13:06:20 Edit Date : Jun 04 2022 03:38:08 Diagnosis: NORMAL SINUS RHYTHM NONSPECIFIC T WAVE ABNORMALITY PROLONGED QT ABNORMAL ECG NO PREVIOUS ECGS AVAILABLE Confirmed by KAUSHIK GUADALUPE MD ([id number]) on 06/04/2022 3:38:07 AM Test Reason : Location : 4 : [facility] Overread By : KAUSHIK GUADALUPE MD Edited By : KAUSHIK GUADALUPE MD Referred By : , Acquired by : KIRTI FRIED Normal [facility] HCG Preg Ur Qlon 05-31-2022 HCG ( test) Ql (U) Negative Normal Negative [facility] Comment on above: Order Comment: Speci men Type: URINE SPECIMENOrdering Facility: [facility] Address: [address] [place] [address] Result Comment: This test is intended to aid in the early detection of . Very dilute urine samples, as indicated by a low specific gravity, may not contain employee representative levels of hCG. This test detects [...] for . Performed By: #### 2 106-3 ####[facility] LABORATORYCLIA [id number] [place] [address] [place] Lipase SerPl-cCncon 05-31-20 22 Lipase [Catalytic activity/Vol] 17 U/L Normal 16-61 [facility] Comment on above: Order Comment: Speci men Type: BLOOD SPECIMENOrdering Facility: [facility] Address: [address] [place], [place] [id number] Performed By: #### 3 040-3, 72431-4, 39562-0 ####[facility]ORATORYCLIA [id number] [place] [address] [place] Magnesium SerPl-mCncon 05-31 Magnesium [Mass/Vol] 1.8 mg/dL Normal 1.7-2.3 [facility] Comment on above: Order Comment: Speci men Type: BLOOD SPECIMENOrdering Facility: [facility] Address: [address] [place] [address] Performed By: #### 3 040-3, 47929-5, 96727-3 ####[facility] LABORATORYCLIA [id number] [place] [address] [place] [facility] ROUTINE FLU A/B + RSVon 05-12 FLUAV RNA CHICHO+probe Ql (Unsp spec) Negative Normal Negative for Influenza A by RT-PCR [facility] Comment on above: Order Comment: Speci men Type: SWAB OF INTERNAL NOSEOrdering Facility: [facility] Address: [address] [place] [address] Performed By: #### R TFRSV, 85194-4 ####[facility] LABCLIA [id number] [address] OF [facility] FLUBV RNA CHICHO+probe Ql (Unsp spec) Negative Normal Negative for Influenza B by RT-PCR [facility] Comment on above: Order Comment: Speci men Type: SWAB OF INTERNAL NOSEOrdering Facility: [facility] Address: [address] [place] [address] Performed By: #### R TFRSV, 78898-4 ####[facility] LABCLIA [id number] [address] RSV A RNA CHICHO+probe Ql (Unsp spec) Negative Normal Negative for Respiratory Syncytial Virus (RSV) by PCR [facility] Comment on above: Order Comment: Speci men Type: SWAB OF INTERNAL NOSEOrdering Facility: [facility] Address: [address] [place] [address] Performed By: #### R TFRSV, 68912-6 ####[facility] LABCLIA [id number] [address] [place] SARS-CoV-2 RNA Resp Ql CHICHO+p robeon 05-31-2022 SARS-CoV-2 (COVID-19) RNA CHICOH+probe Ql (Resp) SARS-CoV-2 (Agent of COVID-19) Detected by RT-PCR or equivalent method. Abnormal Not Detected [facility] Comment on above: Order Comment: Speci men Type: SWAB OF INTERNAL NOSEOrdering Facility: [facility] Address: [address] [place] [address] Result Comment: This test was developed and its performance characteristics determined by [facility] [place]. This test has been authorized by FDA under an Emergency Use Authorization (EUA). This test has been validated in accordance with the FDA's Guidance Document "Policy for Diagnostics Testing in Laboratories Certified to Perform High Complexity Testing under CLIA prior to Emergency use Authorization for Coronavirus Disease 2019 during the Public Health Emergency" issued on December 09, 2019. Test performed by [facility], [facility] [place], [address] [place] [address]. Performed By: #### R TFRSV, 52736-5 ####[facility] LABCLIA [id number] [address] [place] Urinalysis complete panel (U )on 05-31-2022 Bilirubin Ql (U) Negative Normal Negative [facility] Comment on above: Order Comment: Speci men Type: URINE SPECIMENOrdering Facility: [facility] Address: [address] [place] [address] Performed By: #### 2 4356-8 ####[facility] LABORATORYCLIA [id number] [address] [place] Clarity (Unsp spec) Clear Normal Clear [facility] Comment on above: Order Comment: Speci men Type: URINE SPECIMENOrdering Facility: [facility] Address: [address] [place] [address] Performed By: #### 2 4356-8 ####[facility] LABORATORYCLIA [id number] [address] OF [facility] Color (U) Colorless Normal yellow [facility] Comment on above: Order Comment: Speci men Type: URINE SPECIMENOrdering Facility: [facility] Address: [address] [place] [address] Performed By: #### 2 4356-8 ####[facility] LABORATORYCLIA [id number] [address] Glucose Test strip (U) [Mass/Vol] Negative Normal Negative [facility] Comment on above: Order Comment: Speci men Type: URINE SPECIMENOrdering Facility: [facility] Address: [address] [place] [address] Performed By: #### 2 4356-8 ####[facility] LABORATORYCLIA [id number] [address] Hemoglobin Ql (U) Negative Normal Negative [facility] Comment on above: Order Comment: Speci men Type: URINE SPECIMENOrdering Facility: [facility] Address: [address] [place] [address] Performed By: #### 2 4356-8 ####[facility] LABORATORYCLIA [id number] [address] Ketones Ql (U) 2+ Abnormal Negative [facility] Comment on above: Order Comment: Speci men Type: URINE SPECIMENOrdering Facility: [facility] Address: [address] [place] [address] Performed By: #### 2 4356-8 ####[facility] LABORATORYCLIA [id number] [address] Leukocyte esterase Test strip Ql (U) Negative Normal Negative [facility] Comment on above: Order Comment: Speci men Type: URINE SPECIMENOrdering Facility: [facility] Address: [address] [place] [address] Performed By: #### 2 4356-8 ####[facility] LABORATORYCLIA [id number] [address] [place] Nitrite Ql (U) Negative Normal Negative [facility] Comment on above: Order Comment: Speci men Type: URINE SPECIMENOrdering Facility: [facility] Address: [address] [place] [address] Performed By: #### 2 4356-8 ####[facility] LABORATORYCLIA [id number] [address] [place] pH (U) 7.5 [pH] Normal 5.0-8.0 [facility] Comment on above: Order Comment: Speci men Type: URINE SPECIMENOrdering Facility: [facility] Address: [address] [place] [address] Performed By: #### 2 4356-8 ####[facility] LABORATORYCLIA [id number] [address] STATES [facility] Protein (U) [Mass/Vol] Negative Normal Negative [facility] Comment on above: Order Comment: Speci men Type: URINE SPECIMENOrdering Facility: [facility] Address: [address] [place] [address] Performed By: #### 2 4356-8 ####[facility] LABORATORYCLIA [id number] [address] [place] RBC LM.HPF (Urine sed) [#/Area] 0-3 /HPF Normal 0-3 /HPF [facility] Comment on above: Order Comment: Speci men Type: URINE SPECIMENOrdering Facility: [facility] Address: [address] [place] [address] Performed By: #### 2 4356-8 ####[facility] LABORATORYCLIA [id number] [address] Urobilinogen Ql (U) Normal Normal Negative [facility] Comment on above: Order Comment: Speci men Type: URINE SPECIMENOrdering Facility: [facility] Address: [address] [place] [address] Performed By: #### 2 4356-8 ####[facility] LABORATORYCLIA [id number] [address] WBC LM.HPF (Urine sed) [#/Area] 0-5 /HPF Normal 0-5 /HPF [facility] Comment on above: Order Comment: Speci men Type: URINE SPECIMENOrdering Facility: [facility] Address: [address] [place] [address] Performed By: #### 2 4356-8 ####[facility] LABORATORYCLIA [id number] [address] Urinalysis complete pnl Uron 05-31-2022 Specific gravity (U) [Rel density] 1.005 Normal 1.005-1.030 [facility] Comment on above: Order Comment: Speci men Type: URINE SPECIMENOrdering Facility: [facility] Address: [address] [place] [address] Performed By: #### 2 4356-8 ####[facility] LABORATORYCLIA [id number] [address] Result Comment: If s pecific gravity is <1.005 then results may be falsely negative. Serum HCG is recommended. Performed By: #### 2 106-3 ####[facility] LABORATORYCLIA [id number] [address] ALLIED HEALTHon 12-31-2021 ALLIED HEALTH HNO ID: [id number] Author: RT Tierney(R) Service: Radiology Author Type: Butadiene Compressor Operator Type: Allied Health Filed: 12/31/2021 7:25 PM [...] PERIPHERAL IV DATA: Inpatient - refer to [facility] documentation RADIOLOGY DEPARTMENT: CT; Exam(s) Completed: Abdomen/Pelvis SIGNATURE: RT Tierney(R) PATIENT NAME: Luz Oliveira DATE: December 31, 2021 TIME: 7:20 PM Normal [facility] Bacteria Ur Culton 2 Bacteria identified Cx Nom (U) CULTURE, URINE: Three or more urogenital den organisms. No predominating uropathogen. Recollect if clinically indicated. Normal [facility] Comment on above: Performed By: #### 6 30-4 #### [facility] CLIA [id number] [address] [place] [address] [place] CBC W Auto Differential pane l (Bld)on 12-31-2021 Basophils (Bld) [#/Vol] 10*3/uL Normal <0.11 [facility] Comment on above: Order Comment: Speci men Type: BLOOD SPECIMENOrdering Facility: [facility] Address: [address] [place], [place] [phone] Performed By: #### 5 7021-8 ####[facility] LABCLIA [id number] [place] [address] [place] Basophils/100 WBC (Bld) 0.1 % Normal [facility] Comment on above: Order Comment: Speci men Type: BLOOD SPECIMENOrdering Facility: [facility] Address: [address] [place] [address] Performed By: #### 5 7021-8 ####[facility] LABCLIA [id number] [place] [address] [facility] [place] Differential cell count method Nom (Bld) Auto Normal [facility] Comment on above: Order Comment: Speci men Type: BLOOD SPECIMENOrdering Facility: [facility] Address: [address] [place] [address] Performed By: #### 5 7021-8 ####[facility] LABCLIA [id number] [place] [address] [place] Eosinophils (Bld) [#/Vol] 0.03 10*3/uL Normal <0.46 [facility] Comment on above: Order Comment: Speci men Type: BLOOD SPECIMENOrdering Facility: [facility] Address: [address] [place] [address] Performed By: #### 5 7021-8 ####[facility] LABCLIA [id number] [facility], [address] [place] Eosinophils/100 WBC (Bld) 0.3 % Normal [facility] Comment on above: Order Comment: Speci men Type: BLOOD SPECIMENOrdering Facility: [facility] Address: [address] [place] [address] Performed By: #### 5 7021-8 ####[facility] LABCLIA [id number] [address] [place] Erythrocyte distribution width (RBC) [Ratio] 12.0 % Normal 11.5-15.0 [facility] Comment on above: Order Comment: Speci men Type: BLOOD SPECIMENOrdering Facility: [facility] Address: [address] [place] [address] Performed By: #### 5 7021-8 ####[facility] LABCLIA [id number] [place] [address] [place] Hematocrit (Bld) [Volume fraction] 40.3 % Normal 36.0-46.0 [facility] Comment on above: Order Comment: Speci men Type: BLOOD SPECIMENOrdering Facility: [facility] Address: [address] [place] [address] Performed By: #### 5 7021-8 ####[facility] LABCLIA [id number] [place] [address] [place] Hemoglobin (Bld) [Mass/Vol] 13.8 g/dL Normal 11.5-15.5 [facility] Comment on above: Order Comment: Speci men Type: BLOOD SPECIMENOrdering Facility: [facility] Address: [address] [place] [address] Performed By: #### 5 7021-8 ####[facility] LABCLIA [id number] [facility] [place] [address] [place] Lymphocytes (Bld) [#/Vol] 1.98 10*3/uL Normal 1.00-4.00 [facility] Comment on above: Order Comment: Speci men Type: BLOOD SPECIMENOrdering Facility: [facility] Address: [address] [place] [address] Performed By: #### 5 7021-8 ####[facility] LABCLIA [id number] [facility] [place] [address] [place] Lymphocytes/100 WBC (Bld) 20.3 % Normal [facility] Comment on above: Order Comment: Speci men Type: BLOOD SPECIMENOrdering Facility: [facility] Address: [address] [place] [address] Performed By: #### 5 7021-8 ####[facility] LABCLIA [id number] [facility] [place] [address] [place] MCH (RBC) [Entitic mass] 30.7 pg Normal 26.0-34.0 [facility] Comment on above: Order Comment: Speci men Type: BLOOD SPECIMENOrdering Facility: [facility] Address: [address] [place] [address] Performed By: #### 5 7021-8 ####[facility] LABCLIA [id number] [place] [address] [place] MCHC (RBC) [Mass/Vol] 34.2 g/dL Normal 30.5-36.0 [facility] Comment on above: Order Comment: Speci men Type: BLOOD SPECIMENOrdering Facility: [facility] Address: [address] [place] [address] Performed By: #### 5 7021-8 ####[facility]CLIA [id number] [address] [place] MCV (RBC) [Entitic vol] 89.6 fL Normal 80.0-100.0 [facility] Comment on above: Order Comment: Speci men Type: BLOOD SPECIMENOrdering Facility: [facility] Address: [address] [place] [address] Performed By: #### 5 7021-8 ####[facility] LABCLIA [id number] [address] Monocytes (Bld) [#/Vol] 0.70 10*3/uL Normal <0.87 [facility] Comment on above: Order Comment: Speci men Type: BLOOD SPECIMENOrdering Facility: [facility] Address: [address] [place] [address] Performed By: #### 5 7021-8 ####[facility] LABCLIA [id number] [place] [address] [facility] Monocytes/100 WBC (Bld) 7.2 % Normal [facility] Comment on above: Order Comment: Speci men Type: BLOOD SPECIMENOrdering Facility: [facility] Address: [address] [place] [address] Performed By: #### 5 7021-8 ####[facility] LABCLIA [id number] [place] [address] [place] Neutrophils (Bld) [#/Vol] 7.02 10*3/uL Normal 1.45-7.50 [facility] Comment on above: Order Comment: Speci men Type: BLOOD SPECIMENOrdering Facility: [facility] Address: [address] [place] [address] Performed By: #### 5 7021-8 ####[facility] LABCLIA [id number] [place] [address] [place] Neutrophils/100 WBC (Bld) 72.1 % Normal [facility] Comment on above: Order Comment: Speci men Type: BLOOD SPECIMENOrdering Facility: [facility] Address: [address] [place] [address] Performed By: #### 5 7021-8 ####[facility] LABCLIA [id number] [place] [address] [place] Platelet mean volume (Bld) [Entitic vol] 9.7 fL Normal 9.0-12.7 [facility] Comment on above: Order Comment: Speci men Type: BLOOD SPECIMENOrdering Facility: [facility] Address: [address] [place] [address] Performed By: #### 5 7021-8 ####[facility] LABCLIA [id number] [place] [address] [place] Platelets (Bld) [#/Vol] 251 10*3/uL Normal 150-400 [facility] Comment on above: Order Comment: Speci men Type: BLOOD SPECIMENOrdering Facility: [facility] Address: [address] [place] [address] Performed By: #### 5 7021-8 ####[facility] LABCLIA [id number] [place] [address] [place] RBC (Bld) [#/Vol] 4.50 10*6/uL Normal 3.90-5.20 [facility] Comment on above: Order Comment: Speci men Type: BLOOD SPECIMENOrdering Facility: [facility] Address: [address] [place], [place] [address] Performed By: #### 5 7021-8 ####[facility] LABCLIA [id number] [place] [address] [facility] [place] WBC (Bld) [#/Vol] 9.74 10*3/uL Normal 3.70-11.00 [facility] Comment on above: Order Comment: Speci men Type: BLOOD SPECIMENOrdering Facility: [facility] Address: [address] [place], [place] [phone] Performed By: #### 5 7021-8 ####[facility] LABCLIA [id number] [place] [address] [facility] [place] CT ABD/PEL W IVCONon 022 CT ABD/PEL W IVCON * * *Final Report* * * DATE OF EXAM: Dec 31 2021 7:25PM [facility] 0530 - CT ABD/PEL W IVCON [...] Tissues: No significant finding. Lower thorax: Unremarkable. Sap Basis Consultant (topogram) images: No additional findings. IMPRESSION: No acute abnormality Atrophic left kidney with cortical scarring and suspected small nonobstructing calculi. Findings may be related to chronic reflux disease or infection Hepatic steatosis Pipe Bender: CAROLA Transcribe Date/Time: Dec 31 2021 7:37P Dictated by : DIYA FUENTES MD This examination was interpreted and the report reviewed and electronically signed by: DIYA FUENTES MD on Dec 31 2021 7:42PM EST [id number] N Normal [facility] Comprehensive metabolic 2000 panelon 12-31-2021 Albumin [Mass/Vol] 4.0 g/dL Normal 3.4-5.0 [facility] Comment on above: Order Comment: Speci men Type: BLOOD SPECIMENOrdering Facility: [facility] Address: [address] [place] [address] Performed By: #### 2 4323-8, ####[facility] LABCLIA [id number] [place] [address] [place] ALP [Catalytic activity/Vol] 74 U/L Normal 46-116 [facility] Comment on above: Order Comment: Speci men Type: BLOOD SPECIMENOrdering Facility: [facility] Address: [address] [place], [place] [address] Performed By: #### 2 4323-8, ####[employer] [facility] LABCLIA [id number] [place] [address] [place] ALT With P-5'-P [Catalytic activity/Vol] 55 U/L Normal 12-78 [facility] Comment on above: Order Comment: Speci men Type: BLOOD SPECIMENOrdering Facility: [facility] Address: [address] [place], [place] [phone] Performed By: #### 2 4323-8, ####[facility] LABCLIA [id number] [place] [address] [place] Anion gap [Moles/Vol] 2 mmol/L Low 8-16 [facility] Comment on above: Order Comment: Speci men Type: BLOOD SPECIMENOrdering Facility: [facility] Address: [address] [place] [address] Performed By: #### 2 4323-8, ####[facility] LABCLIA [id number] [facility] [address] [place] AST With P-5'-P [Catalytic activity/Vol] 29 U/L Normal 15-46 [facility] Comment on above: Order Comment: Speci men Type: BLOOD SPECIMENOrdering Facility: [facility] Address: [address] [place] [address] Result Comment: Spec imen slightly hemolyzed. Performed By: #### 2 4323-8, ####[facility] LABCLIA [id number] [place] [address] [place] Bilirubin [Mass/Vol] 0.2 mg/dL Normal 0.2-1.0 [facility] Comment on above: Order Comment: Speci men Type: BLOOD SPECIMENOrdering Facility: [facility] Address: [address] [place], [place] [address] Performed By: #### 2 4323-8, ####[facility] LABCLIA [id number] [facility] [place] [address] [place] Calcium [Mass/Vol] 9.1 mg/dL Normal 8.5-10.1 [facility] Comment on above: Order Comment: Speci men Type: BLOOD SPECIMENOrdering Facility: [facility] Address: [address] [place], [place] [address] Performed By: #### 2 4323-8, ####[facility] LABCLIA [id number] [facility] [place] [address] [place] Chloride [Moles/Vol] 100 mmol/L Normal 98-107 [facility] Comment on above: Order Comment: Speci men Type: BLOOD SPECIMENOrdering Facility: [facility] Address: [address] [place] [address] Performed By: #### 2 4323-8, ####[facility] LABCLIA [id number] [facility] [place] [address] [place] CO2 [Moles/Vol] 33 mmol/L High 21-32 [facility] Comment on above: Order Comment: Speci men Type: BLOOD SPECIMENOrdering Facility: [facility] Address: [address] [place] [address] Performed By: #### 2 4323-8, ####[facility] LABCLIA [id number] [place] [address] [place] Creatinine [Mass/Vol] 0.78 mg/dL Normal 0.51-0.95 [facility] Comment on above: Order Comment: Speci men Type: BLOOD SPECIMENOrdering Facility: [facility] Address: [address] [place] [address] Performed By: #### 2 4323-8, ####[facility] LABCLIA [id number] [place] [address] [facility] ESTIMATED GLOMERULAR FILTRATION RATE 110 mL/min/1.73m??? Normal >=60 [facility] Comment on above: Order Comment: Speci men Type: BLOOD SPECIMENOrdering Facility: [facility] Address: [address] [place] [address] Result Comment: Tierra mated Glomerular Filtration Rate [...] reflect actual GFR. Performed By: #### 2 4328, ####[facility] LABCLIA [id number] [place] [address] [place] Glucose [Mass/Vol] 94 mg/dL Normal 70-99 [facility] Comment on above: Order Comment: Speci men Type: BLOOD SPECIMENOrdering Facility: [facility] Address: [address] [place], [place] [phone] Result Comment: The [place] Diabetes Association (ADA) provides guidance for cutoff [...] Standards of Medical Care in Diabetes 2016, [place] [employer]. Diabetes Care. 2016.39(Suppl 1). Performed By: #### 2 43212-16, ####[facility] LABCLIA [id number] [place] [address] [place] Potassium [Moles/Vol] 3.6 mmol/L Normal 3.5-5.1 [facility] Comment on above: Order Comment: Speci men Type: BLOOD SPECIMENOrdering Facility: [facility] Address: [address] [place] [phone] Result Comment: Spec imen slightly hemolyzed. Performed By: #### 2 43212-16, ####[facility] LABCLIA [id number] [place] [address] [place] Protein [Mass/Vol] 7.7 g/dL Normal 6.4-8.2 [facility] Comment on above: Order Comment: Speci men Type: BLOOD SPECIMENOrdering Facility: [facility] Address: [address] [place] [address] Performed By: #### 2 4323-8, ####[facility] LABCLIA [id number] [place] [address] [place] Sodium [Moles/Vol] 135 mmol/L Low 136-145 [facility] Comment on above: Order Comment: Speci men Type: BLOOD SPECIMENOrdering Facility: [facility] Address: [address] [place] [address] Performed By: #### 2 4323-8, ####[facility] LABCLIA [id number] [place] [address] [facility] Urea nitrogen [Mass/Vol] 10 mg/dL Normal 7-18 [facility] Comment on above: Order Comment: Speci men Type: BLOOD SPECIMENOrdering Facility: [facility] Address: [address] [place] [address] Performed By: #### 2 4323-8, ####[facility] LABCLIA [id number] [place] [address] [facility] [place] ED NOTEon 12-31-2021 ED NOTE HNO ID: [id number] Author: Amy Pena RN Service: Emergency Medicine Author Type: Registered Nurse Type: ED Notes Filed: 12/31/2021 7:03 PM Note Text: Patient resting in room. Patient updated on the plan of care. Bed in low locked position. Call light in reach. Monitoring maintained. Safety and comfort care maintained. Normal [facility] ED NOTE HNO ID: [id number] Author: Amy Pena RN Service: Emergency Medicine Author Type: Registered Nurse Type: ED Notes Filed: 12/31/2021 6:34 PM Note Text: Patient resting in room. Patient updated on the plan of care. Bed in low locked position. Call light in reach. Monitoring maintained. Safety and comfort care maintained. Normal [facility] ED NOTE HNO ID: [id number] Author: Amy Pena RN Service: Emergency Medicine Author Type: Registered Nurse Type: ED Notes Filed: 12/31/2021 5:20 PM Note Text: Patient resting in room. Patient updated on the plan of care. Bed in low locked position. Call light in reach. Monitoring maintained. Safety and comfort care maintained. Normal [facility] ED NOTE HNO ID: [id number] Author: Amy Pena RN Service: Emergency Medicine Author Type: Registered Nurse Type: ED Notes Filed: 12/31/2021 4:55 PM Note Text: Patient updated on the plan of care. Patient medicated per order. Allergies reviewed. Patient verbalized understanding. Normal [facility] ED NOTE HNO ID: [id number] Author: Katarzyna Chau RN Service: Emergency Medicine Author Type: Registered Nurse Type: ED Notes Filed: 12/31/2021 4:09 PM Note Text: Rt lower quad pain began yesterday fisher troll line with nausea. Emesis x 1 today. Normal BM today. Pt denies dysuria or hematuria. Hx of kidney stone and UTI Normal [facility] ED PROV NOTEon 12-31-2021 ED PROV NOTE HNO ID: [id number] Author: Mary Pereira DO Service: Emergency Medicine [...] OB physician has popped her ovarian cysts manually" in the past. Last night she started [...] edema. Skin (more content not included)... Normal [facility] ED PROV NOTE HNO ID: [id number] Author: Jayde Yeager MD Service: Emergency Medicine [...] 4:28 PM Jayde Yeager MD 12/31/212020 Normal [facility] HCG Preg Ur Qlon 12-31-2021 HCG ( test) Ql (U) Negative Normal Negative [facility] Comment on above: Order Comment: Speci men Type: URINE SPECIMENOrdering Facility: [facility] Address: [address] [place], [place] [address] Result Comment: This test is intended to aid in the early detection of . Very dilute urine samples, as indicated by a low specific gravity, may not contain employee representative levels of hCG. This test detects [...] Performed By: #### 2 106-3 ####[facility] [id number] [place] [address] [place] Magnesium SerPl-mCncon 12-31 Magnesium [Mass/Vol] 1.9 mg/dL Normal 1.6-2.3 [facility] Comment on above: Order Comment: Speci men Type: BLOOD SPECIMENOrdering Facility: [facility] Address: [address] [place] [address] Performed By: #### 2 4323-8, 31085-1 ####[facility] [id number] [place] [address] [place] US DOPPLER COMPLETEon 2021 [...] to body habitus. 4. No free fluid. Pipe Bender: [facility] Transcribe Date/Time: Dec 31 2021 6:24P Dictated by : KAITY SHAY MD This examination was interpreted and the report reviewed and electronically signed by: KAITY SHAY MD on Dec 31 2021 6:28PM EST [id number] N Normal [facility] US FEMALE PELVIS TRANSABD LT Don [...] to body habitus. 4. No free fluid. [facility]ipe [facility] Trans[facility] Date/Time: Dec 31 2021 6:24P Dictated by : KAITY SHAY MD This examination was interpreted and the report reviewed and electronically signed by: KAITY SHAY MD on Dec 31 2021 6:28PM EST [id number] N Normal [facility] US FEMALE PELVIS TRANSVAGon 12-31-2021 US [...] to body habitus. 4. No free fluid. Pipe Bender: [facility] Transcribe Date/Time: Dec 31 2021 6:24P Dictated by : KAITY SHAY MD This examination was interpreted and the report reviewed and electronically signed by: KAITY SHAY MD on Dec 31 2021 6:28PM EST [id number] N Normal [facility] Urinalysis complete panel (U )on 12-31-2021 Bacteria LM.HPF (Urine sed) [#/Area] Many Abnormal None Seen [facility] Comment on above: Order Comment: Speci men Type: URINE SPECIMENOrdering Facility: [facility] Address: [address] [address] Performed By: #### 2 4356-8 ####[facility] [id number] [place] [address] [place] Bilirubin Ql (U) Negative Normal Negative [facility] Comment on above: Order Comment: Speci men Type: URINE SPECIMENOrdering Facility: [facility] Address: [address] [address] Performed By: #### 2 4356-8 ####[facility] LABCLIA [id number] [facility] [place] [address] [facility] Clarity (Unsp spec) Clear Normal Clear [facility] Comment on above: Order Comment: Speci men Type: URINE SPECIMENOrdering Facility: [facility] Address: [address] [place] [address] Performed By: #### 2 4356-8 ####[facility] LABCLIA [id number] [place] [address] [facility] Color (U) Yellow Normal Yellow [facility] Comment on above: Order Comment: Speci men Type: URINE SPECIMENOrdering Facility: [facility] Address: [address] [place] [address] Performed By: #### 2 4356-8 ####[facility] LABCLIA [id number] [place] [address] [facility] Epithelial cells LM.HPF (Urine sed) [#/Area] Many Normal [facility] Comment on above: Order Comment: Speci men Type: URINE SPECIMENOrdering Facility: [facility] Address: [address] [place] [address] Performed By: #### 2 4356-8 ####[facility] LABCLIA [id number] [place] [address] [facility] Glucose Test strip (U) [Mass/Vol] Negative Normal Negative [facility] Comment on above: Order Comment: Speci men Type: URINE SPECIMENOrdering Facility: [facility] Address: [address] [place] [address] Performed By: #### 2 4356-8 ####[facility] LABCLIA [id number] [place] [address] [facility] Hemoglobin Ql (U) 2+ Abnormal Negative [facility] Comment on above: Order Comment: Speci men Type: URINE SPECIMENOrdering Facility: [facility] Address: [address] [place] [address] Performed By: #### 2 4356-8 ####[facility] LABCLIA [id number] [place] [address] [facility] Ketones Ql (U) Negative Normal Negative [facility] Comment on above: Order Comment: Speci men Type: URINE SPECIMENOrdering Facility: [facility] Address: [address] [place] [address] Performed By: #### 2 4356-8 ####[facility]CLIA [id number] [facility] [place] [address] [facility] Leukocyte esterase Test strip Ql (U) Trace Abnormal Negative [facility] Comment on above: Order Comment: Speci men Type: URINE SPECIMENOrdering Facility: [facility] Address: [address] [place] [address] Performed By: #### 2 4356-8 ####[facility]CLIA [id number] [facility] [place] [address] [place] [facility] Nitrite Ql (U) Negative Normal Negative [facility] Comment on above: Order Comment: Speci men Type: URINE SPECIMENOrdering Facility: [facility] Address: [address] [place] [address] Performed By: #### 2 4356-8 ####[facility] LABCLIA [id number] [place] [address] [place] pH (U) 6.0 [pH] Normal 5.0-8.0 [facility] Comment on above: Order Comment: Speci men Type: URINE SPECIMENOrdering Facility: [facility] Address: [address] [place] [address] Performed By: #### 2 4356-8 ####[facility]CLIA [id number] [place] [address] [facility] Protein (U) [Mass/Vol] Normal [facility] Comment on above: Order Comment: Speci men Type: URINE SPECIMENOrdering Facility: [facility] Address: [address] [place] [address] Result Comment: Visi ble blood causes falsely elevated results for analyte Protein. Due to this limitation, Protein will not be reported for patients whose urine contains visible blood. Performed By: #### 2 4356-8 ####[facility] [id number] [address] [place] [facility] RBC LM.HPF (Urine sed) [#/Area] 11-25 /HPF Abnormal 0-3 /HPF [facility] Comment on above: Order Comment: Speci men Type: URINE SPECIMENOrdering Facility: [facility] Address: [address] [place] [address] Performed By: #### 2 4356-8 ####[facility] [id number] [address] [place] [facility] Specific gravity (U) [Rel density] >=1.030 High 1.005-1.030 [facility] Comment on above: Order Comment: Speci men Type: URINE SPECIMENOrdering Facility: [facility] Address: [address] [place] [address] Performed By: #### 2 4356-8 ####[facility] [id number] [address] Urobilinogen Ql (U) 0.2 EU/dL Normal 0.2-1.0 EU/dL [facility] Comment on above: Order Comment: Speci men Type: URINE SPECIMENOrdering Facility: [facility] Address: [address] [place] [address] Performed By: #### 2 4356-8 ####[facility] [id number] [address] [place] [id number] [facility] WBC LM.HPF (Urine sed) [#/Area] 6-10 /HPF Abnormal 0-5 /HPF [facility] Comment on above: Order Comment: Speci men Type: URINE SPECIMENOrdering Facility: [facility] Address: [address] [place] [address] Performed By: #### 2 4356-8 ####[facility] [id number] [place] [address] [place] COVID 19, CHICHO WC(RT COLLECT )on 03-17-2021 SARS-CoV-2 (COVID-19) RNA CHICHO+probe Ql (Unsp spec) Not detected Normal Not Detect [facility] Comment on above: Result Comment: Norm al Reference Range: Not Detected Method:(RT-PCR) real-time reverse transcriptase PCR Luminex Fanshout Instrument *The Food and Drug Administration (FDA) has issued an Emergency Use Authorization (EAU) for the Fanshout SARS-CoV-2 Assay for the rapid detection of [...] exposure. Performed By: #### L 3400.2405 #### [facility] [address] [place], [address] HAND RIGHT COMPLETEon 2020 HAND RIGHT COMPLETE EXAM: Right hand HISTORY: Pain after shutting a door on the hand on 01/27/2021. TECHNIQUE: 3 views of the right hand were obtained. FINDINGS: There is no evidence of fracture or dislocation. There are no suspicious bone lesions. Soft tissues are normal. IMPRESSION: No acute findings. Normal [facility] BASIC METABOLIC PANELon 01-0 Anion gap [Moles/Vol] 13 mmol/L Normal 10 - 20 [facility] Comment on above: Performed By: #### B MP #### [address] [address] Calcium [Mass/Vol] 9.5 mg/dL Normal 8.6 - 10.3 [facility] Comment on above: Performed By: #### B MP #### [address] [address] Chloride [Moles/Vol] 104 mmol/L Normal 98 - 107 [facility] Comment on above: Performed By: #### B MP #### [address] [address] Creatinine [Mass/Vol] 0.76 mg/dL Normal 0.50 - 1.05 [facility] Comment on above: Performed By: #### B MP #### [address] [address] GFR- AM. >60 Normal >60 [facility] Comment on above: Result Comment: CALC ULATIONS OF ESTIMATED GFR ARE PERFORMED USING THE MDRD STUDY EQUATION FOR THE IDMS-TRACEABLE CREATININE METHODS. CLIN CHEM 2007;53:766-72 Performed By: #### B MP #### [address] [address] GFR-NON AM. >60 Normal >60 [facility] Comment on above: Performed By: #### B MP #### [address] [address] Glucose [Mass/Vol] 88 mg/dL Normal 74 - 99 [facility] Comment on above: Performed By: #### B MP #### [address] [address] HCO3 (Bld) [Moles/Vol] 27 mmol/L Normal 21 - 32 [facility] Comment on above: Performed By: #### B MP #### [address] [address] Potassium [Moles/Vol] 3.8 mmol/L Normal 3.5 - 5.3 [facility] Comment on above: Performed By: #### B MP #### [address] [address] Sodium [Moles/Vol] 140 mmol/L Normal 136 - 145 [facility] Comment on above: Performed By: #### B MP #### [address] [address] Urea nitrogen [Mass/Vol] 11 mg/dL Normal 6 - 23 [facility] Comment on above: Performed By: #### B MP #### [address] [address] CBCon 10-17-2019 Erythrocyte distribution width (RBC) [Ratio] 12.5 % Normal 11.5 - 14.5 [facility] Comment on above: Performed By: #### C BC #### [address] [address] Hematocrit (Bld) [Volume fraction] 42.6 % Normal 36.0 - 46.0 [facility] Comment on above: Performed By: #### C BC #### [address] [address] Hemoglobin (Bld) [Mass/Vol] 14.5 g/dL Normal 12.0 - 16.0 [facility] Comment on above: Performed By: #### C BC #### [address] [address] MCHC (RBC) [Mass/Vol] 34.1 g/dL Normal 32.0 - 36.0 [facility] Comment on above: Performed By: #### C BC #### [address] [address] MCV (RBC) [Entitic vol] 91 fL Normal 80 - 100 [facility] Comment on above: Performed By: #### C BC #### [address] [address] Platelets (Bld) [#/Vol] 270 10*3/uL Normal 150 - 450 [facility] Comment on above: Performed By: #### C BC #### [address] [address] RBC (Bld) [#/Vol] 4.67 x10E12/L Normal 4.00 - 5.20 [facility] Comment on above: Performed By: #### C BC #### [address] [address] WBC (Bld) [#/Vol] 8.2 10*3/uL Normal 4.4 - 11.3 [facility] Comment on above: Performed By: #### C BC #### [address] [place] [address] CT HEAD WO CONTRASTon 2019 CT HEAD WO CONTRAST Patient Name: LUZ MTZ STUDY: CT of the head without contrast INDICATION: dizzy/trauma COMPARISON: None ACCESSION NUMBER(S): [id number] ORDERING CLINICIAN: RASHMI FERRERA TECHNIQUE: A CT [...] Electronically signed by: LILI MONTEIRO MD Normal [facility] HCG,URINEon 10-17-2019 Beta HCG ( test) Ql (U) Negative Normal Negative [facility] Comment on above: Performed By: #### H CGU #### [address] [address] Provider Note - ED v2on Provider Note - ED v2 Provider Note - ED v2: Chart Review: ED NOTES ED NOTES: ====HPI==== 19 year old female 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 Patient states she believes she has a [...] made to minimize errors. Minor errors in dirt shoveler may be present. Please call if questions. [...] of syncope (PT TO ED WITH C/O "I HAVE BEEN FEELING DIZZY SINCE 3-4PM, WENT TO WORK, BUT CAME HOME EARLY,, AND I GOT A SHOW A SHOWER, AND PASSED OUT, I THINK AROUND 1999 AND HIT MY FOREHEAD ON THE SHOWER" PT C/O STILL FEELING DIZZY.)(1). 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: Is : no(1) Is : no(1) [...] at 10/17/2019 01:39 Appearance, Urine CLEAR Specific [place], Urine 1.021 pH, Urine 7.0 Protein, Urine [...] SIGNS: T PRBP SpO2O2(LPM) %FiO2 Method 17-Oct-2019 01:27:[id number]/80 100 room air, no respiratory support 16-Oct-2019 22:16:[id number] /78 99 room air, no respiratory support 16-Oct-2019 22:00:[id number] /78 99 room air, no respiratory support [...] a critically ill patient: no Electronic Signatures: Michi Juan Manuel (Scribe) (Entered 17-Oct-2019 01:49) Entered: Provider Note - ED v2 Rashmi Ferrera) (Signed 17-Oct-2019 03:25) Authored: Provider Note - ED v2 Last Updated: 17-Oct-2019 03:25 by Rashmi Ferrera () References: 1. Data Referenced From "Triage - ED" 16-Oct-2019 22:16 [facility] Risk Screen - Adult Emergenc yon 10-17-2019 [...] instruction; written material Cultural Considerationsnone Developmental Considerationsnone Sabianism Considerationsnone Other Learnerssignificant other Learning Assessment (Other Learner): Learning Assessment (Other Learner): Other learner availableyes... Learnersignificant other Factors Influencing Readiness to Learninterest in learning Factors that Impact Ability to Learnnone Devices/Methods Used to Communicatenone Learning Preferencesverbal instruction, written material Cultural Considerationsnone Developmental Considerationsnone Sabianism Considerationsnone Pressure Injury/TB/Substance: Pressure Injury: Do you have a coughno Substance Use Current or Former Historynever: Cigarette/Tobacco, e-Cigarette/Vaping, Alcohol, Street Drugs Admission Risk Screen: Significant IndicatorsComplete CAGE: CAGE: Is this an [place] a [place] Center [place] [place]/[place] no Electronic Signatures: Lisette Junior (RN) (Signed 16-Oct-2019 22:23) Authored: Preferred Language, Advanced Directives, Family Violence Adult, Learning Assessment (Patient), Learning Assessment (Other Learner), Pressure Injury/TB/Substance, CAGE Last Updated: 16-Oct-2019 22:23 by Lisette Junior (RN) [facility] Triage - EDon 10-17-2019 Triage - ED [...] of syncope (PT TO ED WITH C/O "I HAVE BEEN FEELING DIZZY SINCE 3-4PM, WENT TO WORK, BUT CAME HOME EARLY,, AND I GOT A SHOW A SHOWER, AND PASSED OUT, I THINK AROUND 1999 AND HIT MY FOREHEAD ON THE SHOWER" PT C/O STILL FEELING DIZZY.). 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 CELLS 1+ /HPF Normal [facility] Comment on above: Performed By: #### U AMIC #### [place] [address] TRANSITIONAL EPITH.CELLS Negative Normal [facility] Comment on above: Performed By: #### U AMIC #### [place] [address] WBC (Bld) [#/Vol] 5-20 Abnormal 0-5 [facility] Comment on above: Performed By: #### U AMIC #### [place] [address] URINALYSISon 10-17-2019 Appearance (U) CLEAR Normal CLEAR [facility] Comment on above: Result Comment: This is a corrected result. Previous value was HAZY, verified at 10/17/2019 01:39 Performed By: #### U A #### [address] [place] [id number] Color (U) YELLOW Normal STRAW,YELLOW [facility] Comment on above: Result Comment: This is a corrected result. Previous value was Red, verified at 10/17/2019 01:39 Performed By: #### U A #### [place] [address] Bilirubin (U) [Mass/Vol] Negative Normal NEGATIVE [facility] Comment on above: Performed By: #### U A #### [place] [address] BLOOD SMALL(1+) Abnormal NEGATIVE [facility] Comment on above: Performed By: #### U A #### [place] [address] Glucose [Mass/Vol] Negative Normal NEGATIVE [facility] Comment on above: Performed By: #### U A #### [place] [address] Ketones Ql (U) Negative Normal NEGATIVE [facility] Comment on above: Performed By: #### U A #### [address] [place] [id number] Leukocyte esterase Test strip Ql (U) TRACE Abnormal NEGATIVE [facility] Comment on above: Performed By: #### U A #### [place] [address] Nitrite Ql (U) Negative Normal NEGATIVE [facility] Comment on above: Performed By: #### U A #### [address] [place] [id number] pH (Bld) 7.0 Normal 5.0 - 8.0 [facility] Comment on above: Performed By: #### U A #### [address] [address] Protein (U) [Mass/Vol] Negative Normal NEGATIVE [facility] Comment on above: Performed By: #### U A #### [address] [address] Specific gravity (U) [Rel density] 1.021 Normal 1.005 - 1.035 [facility] Comment on above: Performed By: #### U A #### [address] [address] Urobilinogen Qn (U) <2.0 Normal 0.0 - 1.9 [facility] Comment on above: Performed By: #### U A #### [address] [address] URINE CULTURE,BACTERIALon URINE CULTURE,BACTERIAL TEST URINE CULTURE,BACTERIAL WAS CANCELLED, 10/19/2019 16:21 PATIENT DISCHARGED. PATIENT: LUZ MTZ LOCATION: [facility]#: [id number] : 89 AGE: SEX: F ORDERED BY: RASHMI FERRERA SOURCE: URINE COLLECTED: 10/17/19 02:24 ANTIBIOTICS AT JAMIE.: RECEIVED : SITE: Clean Catch/Voided R E S U L T S URINE CULTURE,BACTERIAL CANCELLED 10/19/19 16:21 Normal [facility] Comment on above: Performed By: #### [facility] #### [facility] [address] [place] [address] XR Foot 3+ Views Righton XR Foot 3+ Views Right Exam Date/Time: 04/28/2019 13:58 EDT Reason for Exam: Pain, Traumatic Report STUDY: XR Foot 3+ Views Right;; 04/28/2019 1:58 pm INDICATION: Pain, Traumatic. COMPARISON: None. ACCESSION NUMBER(S): [id number] ORDERING CLINICIAN: Alex Grubbs FINDINGS: No acute fracture or malalignment. No radiopaque foreign body. IMPRESSION: No acute osseous abnormality FINAL REPORT Dictated: 04/28/2019 2:30 pm Nancy Mills MD Signed (Electronic Signature): 04/28/2019 2:30 pm Signed by: Nancy Mills MD Technologist: JOHNSON Normal [facility] ABO/Rh Echoon 12-25-2018 ABO/Rh E Interp... Positive Normal [facility] Comment on above: Performed By: #### 2 132781 #### [facility] [address] [place] [address] BhCG Quanton 12-25-2018 Beta hCG Qnt <0.6 Normal 0.0-2.9 [facility] Comment on above: Performed By: #### 2 520871 #### [facility] [address] [place] [address] UA Completeon 12-25-2018 Color (U) Yellow Normal Yellow [facility] Comment on above: Performed By: #### 2 680740 #### [facility] [address] [place] [address] Glucose (U) [Mass/Vol] Negative Normal Negative [facility] Comment on above: Performed By: #### 2 060069 #### [facility] [address] [place], [place] [address] Ketones Ql (U) Negative Normal Negative [facility] Comment on above: Performed By: #### 2 695118 #### [facility] [address] [place] [address] RBC (U) [#/Vol] /uL Abnormal 0-3 [facility] Comment on above: Performed By: #### 2 377803 #### [facility] [address] [place] [address] UA Blood 3+ Normal Negative [facility] Comment on above: Performed By: #### 2 850365 #### [facility] [address] [place] [address] UA Bacteria Trace Abnormal None [facility] Comment on above: Performed By: #### 2 360847 #### [facility] [address] [place] [address] UA Clarity Clear Normal Clear [facility] Comment on above: Performed By: #### 2 350626 #### [facility] [address] [place] [address] UA Leuk Est Negative Normal Negative [facility] Comment on above: Performed By: #### 2 685222 #### [facility] [address] [place] [address] UA Mucous Trace Abnormal Trace [facility] Comment on above: Performed By: #### 2 744837 #### [facility] [address] [place] [address] UA Nitrite Negative Normal Negative [facility] Comment on above: Performed By: #### 2 071426 #### [facility] [address] [place] [address] UA pH 8.0 Normal 4.6-8.0 [facility] Comment on above: Performed By: #### 2 955658 #### [facility] [address] [place] [address] UA Protein Negative Normal Negative [facility] Comment on above: Performed By: #### 2 793832 #### [facility] [address] [place] [address] UA Spec Grav 1.012 Normal 1.003-1.030 [facility] Comment on above: Performed By: #### 2 824153 #### [facility] [address] [place] [address] UA Squam Epithelial 0-5 Normal 0-5 [facility] Comment on above: Performed By: #### 2 179877 #### [facility] [address] [place] [address] UA Urobilinogen Negative Normal [facility] Comment on above: Result Comment: Due to a manufacturing issue, low positive urobilinogen results may be fasely positive. Correlate with urine bilirubin and additional clinical/laboratory findings to assess the risk of hemolytic anemia or liver disease. If clinically indicated, repeat testing with an alternate method is available by contacting the laboratory within 24 hours. Performed By: #### 2 875319 #### [facility] [address] [place] [address] UA WBC 5-10 Abnormal 0-5 [facility] Comment on above: Performed By: #### 2 [id number] #### [facility] [address] [place] [address] Urobilinogen Qn (U) Negative Normal Negative [facility] Comment on above: Performed By: #### 2 [id number] #### [facility] [address] [place] [id number] C Urineon 09-05-2018 C Urine Final Report: Light growth of Normal skin den isolated Normal [facility] Comment on above: Performed By: #### 2 [id number] #### [facility] [address] [place] [address] .Manual Abson 09-03-2018 Basophil Abs Man 0.0 10x3/ Normal 0.0-0.2 [facility] Comment on above: Order Comment: Order Added by Discern Expert. Performed By: #### 3 [id number] #### [facility] [address] [place] [address] Eos Abs Man 0.0 10x3/ Normal 0.0-0.5 [facility] Comment on above: Order Comment: Order Added by Discern Expert. Performed By: #### 3 [id number] #### [facility] MckeonH[facility] [address] [place] [address] Lymph Abs Man 0.5 10x3/ Low 1.2-3.4 [facility] Comment on above: Order Comment: Order Added by Discern Expert. Performed By: #### 3 [id number] #### [facility] [address] [place] [address] Treasure Abs Man 0.4 10x3/ Normal 0.0-0.7 [facility] Comment on above: Order Comment: Order Added by Discern Expert. Performed By: #### 3 [id number] #### [facility]keonH[facility] [address] [place] [address] Segs Abs Man 7.8 10x3/ High 1.4-6.5 [facility] Comment on above: Order Comment: Order Added by Discern Expert. Performed By: #### 3 [id number] #### [facility] [address] [place] [address] BMPon 09-03-2018 Anion gap [Moles/Vol] 14 mmol/L Normal 10-20 [facility] Comment on above: Performed By: #### 2 [id number] #### [facility] [address] [place] [address] Calcium [Mass/Vol] 8.8 mg/dL Normal 8.5-10.7 [facility] Comment on above: Performed By: #### 2 [id number] #### [facility] [address] [place] [address] Chloride [Moles/Vol] 102 mmol/L Normal 98-107 [facility] Comment on above: Performed By: #### 2 [id number] #### [facility] [address] [place] [address] CO2 [Moles/Vol] 24.0 mmol/L Normal 21.0-32.0 [facility] Comment on above: Performed By: #### 2 [id number] #### [facility] [address] [place] [address] Creatinine [Mass/Vol] 0.8 mg/dL Normal 0.5-1.1 [facility] Comment on above: Performed By: #### 2 [id number] #### [facility] [address] [place] [address] Glucose [Mass/Vol] 100 mg/dL High 70-99 [facility] Comment on above: Performed By: #### 2 [id number] #### [facility] [address] [place] [address] Potassium [Moles/Vol] 3.2 mmol/L Low 3.5-5.3 [facility] Comment on above: Performed By: #### 2 [id number] #### [facility] [address] [place] [address] Sodium [Moles/Vol] 137 mmol/L Normal 136-145 [facility] Comment on above: Performed By: #### 2 [id number] #### [facility] [address] [place] [address] Urea nitrogen [Mass/Vol] 11 mg/dL Normal 6-23 [facility] Comment on above: Performed By: #### 2 [id number] #### [facility] [address] [place] [address] Urea nitrogen/Creatinine [Mass ratio] 13.8 ratio Normal 5.4-30.0 [facility] Comment on above: Performed By: #### 2 [id number] #### [facility] [address] [place] [address] CBC w/ Auto Diffon 11-24-201 8 Erythrocyte distribution width (RBC) [Ratio] 13.0 % Normal 11.5-14.5 [facility] Comment on above: Performed By: #### 2 [id number] #### [facility]on[facility] [place] [address] Hematocrit (Bld) [Volume fraction] 37.2 % Normal 36.0-48.0 [facility] Comment on above: Performed By: #### 2 [id number] #### [facility]keonH[facility] [place] [address] Hemoglobin (Bld) [Mass/Vol] 12.7 g/dL Normal 12.0-16.0 [facility] Comment on above: Performed By: #### 2 [id number] #### [facility] [place] [address] MCH (RBC) [Entitic mass] 31.2 pg High 27.0-31.0 [facility] Comment on above: Performed By: #### 2 [id number] #### [facility] [employer] [address] [place] [address] MCHC (RBC) [Mass/Vol] 34.2 g/dL Normal 33.0-37.0 [facility] Comment on above: Performed By: #### 2 [id number] #### [facility] [employer] [address] [place] [address] MCV (RBC) [Entitic vol] 91.4 fL Normal 78.0-100.0 [facility] Comment on above: Performed By: #### 2 743802 #### [facility] [place] [address] Platelet mean volume (Bld) [Entitic vol] 8.2 fL Normal 7.4-11.0 [facility] Comment on above: Performed By: #### 2 [id number] #### [facility] [address] [place] [address] Platelets (Bld) [#/Vol] 201 E3/mcL Normal 130-400 [facility] Comment on above: Performed By: #### 2 [id number] #### [facility] Rem[facility] [place] [address] RBC (Bld) [#/Vol] 4.07 E6/mcL Normal 3.90-5.40 [facility] Comment on above: Performed By: #### 2 [id number] #### [facility] Rogerso [address] [place] [address] WBC (Bld) [#/Vol] 8.9 E3/mcL Normal 3.6-11.0 [facility] Comment on above: Performed By: #### 2 [id number] #### [facility] [address] [place] [address] CT Abdomen/Pelvis w/ Contras ton 09-03-2018 CT Abdomen/Pelvis w/ Contrast Exam Date/Time: 09/03/2018 21:35 EST Reason for Exam: Pain Report STUDY: CT Abdomen/Pelvis w/ Contrast; 09/03/2018 9:35 pm INDICATION: Pain. Pain COMPARISON: No comparison available ACCESSION NUMBER(S): [id number] ORDERING CLINICIAN: Miles Horn TECHNIQUE: CT of [...] Signed by: Joaquin Lobo MD Technologist: JOHN, Normal [facility] Hep Func Panelon 09-03-2018 Albumin [Mass/Vol] 4.3 g/dL Normal 3.4-5.0 [facility] Comment on above: Performed By: #### 2 [id number] #### [facility] [address] [address] Albumin/Globulin [Mass ratio] 1.7 {ratio} Normal 1.1-1.9 [facility] Comment on above: Performed By: #### 2 [id number] #### [facility] [address] [place] [address] Alk Phos 59 Int._Unit/L Normal 33-139 [facility] Comment on above: Performed By: #### 2 [id number] #### [facility] [place] [address] ALT [Catalytic activity/Vol] 18 Int._Unit/L Normal 7-45 [facility] Comment on above: Performed By: #### 2 [id number] #### [facility] [place] [address] AST [Catalytic activity/Vol] 18 Int._Unit/L Normal 9-39 [facility] Comment on above: Performed By: #### 2 [id number] #### [facility] [address] [place] [address] Bili Direct 0.16 mg/dL Normal 0.00-0.30 [facility] Comment on above: Performed By: #### 2 [id number] #### [facility] [address] [place] [address] Bili Indirect 0.7 Normal [facility] Comment on above: Performed By: #### 2 [id number] #### [facility] [address] [place] [address] Bili Total 0.9 mg/dL Normal 0.0-1.2 [facility] Comment on above: Performed By: #### 2 730602 #### [facility] [address] [place] [address] Globulin (S) [Mass/Vol] 3.0 g/dL Normal 2.0-4.0 [facility] Comment on above: Performed By: #### 2 609488 #### [facility] [place] [address] Protein [Mass/Vol] 6.8 g/dL Normal 6.4-8.2 [facility] Comment on above: Performed By: #### 2 [id number] #### [facility] [place] [address] Influenza A&B Agon 8 Influenzae A Ag Negative Normal Negative [facility] Comment on above: Performed By: #### 2 [id number] #### [facility] [employer] [address] [place] [address] Influenzae B Ag Negative Normal Negative [facility] Comment on above: Performed By: #### 2 [id number] #### [facility] [place] [address] Lactic Acidon 09-03-2018 Lactate [Moles/Vol] 0.8 mmol/L Normal 0.4-2.0 [facility] Comment on above: Performed By: #### 2 [id number] #### [address] [place] [address] Lipase Levelon 09-03-2018 Lipase Lvl 12 Int._Unit/L Normal 9-82 [facility] Comment on above: Performed By: #### 2 799476 #### [facility]YTiny [facility] [address] [place] [address] Manual Diffon 09-03-2018 Band form neutrophils/100 WBC (Bld) 1 Normal 0-1 [facility] Comment on above: Order Comment: Order Added by Discern Expert. Performed By: #### 2 [id number] #### [facility]keonHemo [address] [place] [address] Basophil Man 0 % Normal 0-1 [facility] Comment on above: Order Comment: Order Added by Discern Expert. Performed By: #### 2 [id number] #### [facility]keonHemo [address] [place] [address] Eosinophils/100 WBC (Bld) 0 % Normal 0-5 [facility] Comment on above: Order Comment: Order Added by Discern Expert. Performed By: #### 2 [id number] #### [facility]keonH[facility] [address] [place] [address] Lymphocytes/100 WBC (Bld) 6 % Low 14-48 [facility] Comment on above: Order Comment: Order Added by Discern Expert. Performed By: #### 2 737461 #### [facility]on[facility] [address] [place] [address] Monocyte Man 5 % Normal 1-11 [facility] Comment on above: Order Comment: Order Added by Discern Expert. Performed By: #### 2 770250 #### [facility] [address] [place] [address] RBC morphology finding Nom (Bld) NORMAL Normal [facility] Comment on above: Order Comment: Order Added by Discern Expert. Performed By: #### 2 [id number] #### [facility]on[facility] [address] [place] [address] Segs Man 88 % High 37-75 [facility] Comment on above: Order Comment: Order Added by Discern Expert. Performed By: #### 2 [id number] #### [facility]keonHemo [address] [place] [address] TSHon 09-03-2018 TSH Qn 0.89 mcIU/mL Normal 0.30-5.60 [facility] Comment on above: Order Comment: With T4fr Reflex Performed By: #### 2 [id number] #### [facility] [address] [place] [address] U BhCG Qlton 09-03-2018 HCG.beta subunit Qn Negative Normal Neg [facility] Comment on above: Performed By: #### 2 [id number] #### [facility] [address] [place] [address] UA Completeon 09-03-2018 Color (U) Yellow Normal Yellow [facility] Comment on above: Order Comment: Strai ght Cath as needed Performed By: #### 2 [id number] #### [facility] [address] [place] [address] Glucose (U) [Mass/Vol] Negative Normal Negative [facility] Comment on above: Order Comment: Strai ght Cath as needed Performed By: #### 2 [id number] #### [facility] [address] [place] [address] Ketones Ql (U) 1+ Abnormal Negative [facility] Comment on above: Order Comment: Strai ght Cath as needed Performed By: #### 2 [id number] #### [facility] [address] [place] [address] RBC (U) [#/Vol] 10-20 Abnormal 0-3 [facility] Comment on above: Order Comment: Strai ght Cath as needed Performed By: #### 2 [id number] #### [facility] [address] [place] [address] UA Blood 1+ Abnormal Negative [facility] Comment on above: Order Comment: Strai ght Cath as needed Performed By: #### 2 [id number] #### [facility] [address] [place] [address] UA Ascorbic Acid 40 mg/dL High <=19 [facility] Comment on above: Order Comment: Strai ght Cath as needed Performed By: #### 2 [id number] #### [facility] [address] [place] [address] UA Clarity SltCloudy Abnormal Clear [facility] Comment on above: Order Comment: Strai ght Cath as needed Performed By: #### 2 [id number] #### [facility] [address] [place] [address] UA Leuk Est 1+ Abnormal Negative [facility] Comment on above: Order Comment: Strai ght Cath as needed Performed By: #### 2 243810 #### [facility] [address] [place] [address] UA Mucous Trace Abnormal Trace [facility] Comment on above: Order Comment: Strai ght Cath as needed Performed By: #### 2 [id number] #### [facility] [address] [place] [address] UA Nitrite Negative Normal Negative [facility] Comment on above: Order Comment: Strai ght Cath as needed Performed By: #### 2 [id number] #### [facility] [place] [address] UA pH 7.0 Normal 4.6-8.0 [facility] Comment on above: Order Comment: Strai ght Cath as needed Performed By: #### 2 [id number] #### [facility] [address] [place] [address] UA Protein Negative Normal Negative [facility] Comment on above: Order Comment: Strai ght Cath as needed Performed By: #### 2 [id number] #### [facility] [address] [place] [address] UA Spec Grav 1.015 Normal 1.003-1.030 [facility] Comment on above: Order Comment: Strai ght Cath as needed Performed By: #### 2 [id number] #### [facility] [address] [place], [place] [address] UA Squam Epithelial 0-5 Normal 0-5 [facility] Comment on above: Order Comment: Strai ght Cath as needed Performed By: #### 2 537044 #### [employer] [employer] [address] [place] [address] UA Urobilinogen Negative Normal [facility] Comment on above: Order Comment: [...] within 24 hours. Performed By: #### 2 [id number] #### [employer] [facility] [place] [address] UA WBC 20-50 Abnormal 0-5 [facility] Comment on above: Order Comment: Strai ght Cath as needed Performed By: #### 2 874381 #### [employer] [facility] [place] [id number] Urobilinogen Qn (U) Negative Normal Negative [facility] Comment on above: Order Comment: Strai ght Cath as needed Performed By: #### 2 151931 #### [facility] [address] [place] [id number] eGFRon 09-03-2018 GFR/1.73 sq M predicted among non-blacks MDRD (S/P/Bld) [Vol rate/Area] mL/min/{1.73_m2} Normal [facility] Comment on above: Order Comment: Order added by Discern Expert. Performed By: #### 1 [id number] #### [facility] [address] [place] [id number] zzplt morphon 09-03-2018 Platelet morphology finding Nom (Bld) NORMAL Normal [facility] Comment on above: Performed By: #### 9 [id number] #### [facility] Rem[facility] [address] [place] [address] Platelets (Bld) [#/Vol] NORMAL Normal [facility] Comment on above: Performed By: #### 9 [id number] #### [facility] Rem[facility] [address] [place] [address] Vital Signs Date Time Vital Sign Value Performing Clinician Facility 04-02-2023 16:00-0400 Body temperature 97.88 [degF] SUNIL GRAHAM MD [facility] 04-02-2023 16:00-0400 Diastolic Blood Pressure Non-Invasive 66 1 SUNIL GRAHAM MD [facility] 04-02-2023 16:00-0400 Heart rate 77 /min SUNIL GRAHAM MD [facility] 04-02-2023 16:00-0400 Respiratory rate 18 /min SUNIL GRAHAM MD [facility] 04-02-2023 16:00-0400 Systolic Blood Pressure Non-Invasive 110 1 SUNIL GRAHAM MD [facility] 04-02-2023 10:00-0400 Body temperature 97.7 [degF] SUNIL GRAHAM MD [facility] 04-02-2023 10:00-0400 Diastolic Blood Pressure Non-Invasive 48 1 SUNIL GRAHAM MD [facility] 04-02-2023 10:00-0400 Heart rate 81 /min SUNIL GRAHAM MD [facility] 04-02-2023 10:00-0400 Systolic Blood Pressure Non-Invasive 97 1 SUNIL GRAHAM MD [facility] 04-02-2023 00:31-0400 Body temperature 97.88 [degF] SUNIL GRAHAM MD [facility] 04-02-2023 00:31-0400 Diastolic Blood Pressure Non-Invasive 59 1 SUNIL GRAHAM MD [facility] 04-02-2023 00:31-0400 Heart rate 68 /min SUNIL GRAHAM MD [facility] 04-02-2023 00:31-0400 Reason For Taking VItal Signs SUNIL GRAHAM MD [facility] 04-02-2023 00:31-0400 Respiratory rate 16 /min SUNIL GRAHAM MD [facility] 04-02-2023 00:31-0400 Systolic Blood Pressure Non-Invasive 113 1 SUNIL GRAHAM MD [facility] 04-01-2023 16:20-0400 Reason For Taking VItal Signs SUNIL GRAHAM MD [facility] 04-01-2023 08:41-0400 Reason For Taking VItal Signs SUNIL GRAHAM MD [facility] 03-31-2023 23:30-0400 Body temperature 97.88 [degF] SUNIL GRAHAM MD [facility] 03-31-2023 15:25-0400 Body temperature 98.42 [degF] SUNIL GRAHAM MD [facility] 03-31-2023 08:36-0400 Body temperature 98.24 [degF] SUNIL GRAHAM MD [facility] 03-30-2023 07:49-0400 Body height 155 cm SUNIL GRAHAM MD [facility] 03-30-2023 07:49-0400 Body weight 78 kg SUNIL GRAHAM MD [facility] 03-30-2023 07:49-0400 Body weight 32.47 kg/m2 SUNIL GRAHAM MD [facility] 03-07-2023 20:03-0400 Body temperature 98.6 [degF] MARTINEZ NÚÑEZ MD [facility] 03-07-2023 20:03-0400 Diastolic Blood Pressure Non-Invasive 69 1 MARTINEZ NÚÑEZ MD [facility] 03-07-2023 20:03-0400 Heart rate 91 /min MARTINEZ NÚÑEZ MD [facility] 03-07-2023 20:03-0400 Respiratory rate 18 /min MARTINEZ NÚÑEZ MD [facility] 03-07-2023 20:03-0400 Systolic Blood Pressure Non-Invasive 115 1 MARTINEZ NÚÑEZ MD [facility] 03-07-2023 20:02-0400 Body height 155 cm MARTINEZ NÚÑEZ MD [facility] 03-07-2023 20:02-0400 Body weight 79.5 kg MARTINEZ NÚÑEZ MD [facility] 03-07-2023 20:02-0400 Body weight 33.09 kg/m2 MARTINEZ NÚÑEZ MD [facility] 03-06-2023 17:39-0400 Body temperature 98.06 [degF] MARTINEZ NÚÑEZ MD [facility] 03-06-2023 17:39-0400 Diastolic Blood Pressure Non-Invasive 76 1 MARTINEZ NÚÑEZ MD [facility] 03-06-2023 17:39-0400 Heart rate 125 /min MARTINEZ NÚÑEZ MD [facility] 03-06-2023 17:39-0400 Systolic Blood Pressure Non-Invasive 113 1 MARTINEZ NÚÑEZ MD [facility] 03-06-2023 17:37-0400 Body height 155 cm MARTINEZ NÚÑEZ MD [facility] 03-06-2023 17:37-0400 Body weight 79.5 kg MARTINEZ NÚÑEZ MD [facility] 03-06-2023 17:37-0400 Body weight 33.09 kg/m2 MARTINEZ NÚÑEZ MD [facility] 01-26-2023 03:20-0400 Diastolic Blood Pressure Non-Invasive 67 1 MARTINEZ NÚÑEZ MD [facility] 01-26-2023 03:20-0400 Heart rate 107 /min MARTINEZ NÚÑEZ MD [facility] 01-26-2023 03:20-0400 Systolic Blood Pressure Non-Invasive 113 1 MARTINEZ NÚÑEZ MD [facility] 01-26-2023 02:34-0400 Diastolic Blood Pressure Non-Invasive 71 1 MARTINEZ NÚÑEZ MD [facility] 01-26-2023 02:34-0400 Heart rate 95 /min MARTINEZ NÚÑEZ MD [facility] 01-26-2023 02:34-0400 Systolic Blood Pressure Non-Invasive 116 1 MARTINEZ NÚÑEZ MD [facility] 01-26-2023 02:15-0400 Body temperature 98.24 [degF] MARTINEZ NÚÑEZ MD [facility] 01-26-2023 01:46-0400 Diastolic Blood Pressure Non-Invasive 42 1 MARTINEZ NÚÑEZ MD [facility] 01-26-2023 01:46-0400 Heart rate 101 /min MARTINEZ NÚÑEZ MD [facility] 01-26-2023 01:46-0400 Systolic Blood Pressure Non-Invasive 114 1 MARTINEZ NÚÑEZ MD [facility] 01-26-2023 01:16-0400 Respiratory rate 16 /min MARTINEZ NÚÑEZ MD [facility] 01-26-2023 00:59-0400 Body height 155 cm MARTINEZ NÚÑEZ MD [facility] 01-26-2023 00:59-0400 Body weight 77.3 kg MARTINEZ NÚÑEZ MD [facility] 01-26-2023 00:59-0400 Body weight 32.17 kg/m2 MARTINEZ NÚÑEZ MD [facility] 11-18-2022 12:08-0500 Body temperature 98.24 [degF] SUNIL GRAHAM MD [facility] 11-18-2022 12:08-0500 Diastolic Blood Pressure Non-Invasive 82 1 SUNIL GRAHAM MD [facility] 11-18-2022 12:08-0500 Heart rate 108 /min SUNIL GRAHAM MD [facility] 11-18-2022 12:08-0500 Respiratory rate 18 /min SUNIL GRAHAM MD [facility] 11-18-2022 12:08-0500 Systolic Blood Pressure Non-Invasive 103 1 SUNIL GRAHAM MD [facility] 10-14-2022 11:01-0500 Body weight 80.06 kg Gretel Quintana MD Work Phone: [facility] 10-14-2022 11:01-0500 Diastolic blood pressure 56 mm[Hg] Gretel Quintana MD Work Phone: [facility] 10-14-2022 11:01-0500 Respiratory rate 18 /min Gretel Quintana MD Work Phone: [facility] 10-14-2022 11:01-0500 Systolic blood pressure 110 mm[Hg] Gretel Quintana MD Work Phone: [facility] 08-19-2022 13:06-0500 Body weight 85.5 kg Braulio Hollingsworth MD Work Phone: [facility] 08-19-2022 13:06-0500 Diastolic blood pressure 82 mm[Hg] Braulio Hollingsworth MD Work Phone: [facility] 08-19-2022 13:06-0500 Systolic blood pressure 102 mm[Hg] Braulio Hollingsworth MD Work Phone: [facility] 08-09-2022 18:09-0400 Diastolic blood pressure 74 mm[Hg] No Primary Care Physician [facility] Work Phone: 08-09-2022 18:09-0400 Heart rate 107 /min No Primary Care Physician [facility] Work Phone: 08-09-2022 18:09-0400 Respiratory rate 18 /min No Primary Care Physician [facility] Work Phone: 08-09-2022 18:09-0400 SaO2% (BldA) [Mass fraction] 94 % No Primary Care Physician [facility] Work Phone: 08-09-2022 18:09-0400 Systolic blood pressure 120 mm[Hg] No Primary Care Physician [facility] Work Phone: 08-09-2022 13:51-0400 Body height 154.94 cm No Primary Care Physician [facility] Work Phone: 08-09-2022 13:51-0400 Body mass index (BMI) [Ratio] 35.9 kg/m2 No Primary Care Physician [facility] Work Phone: 08-09-2022 13:51-0400 Body temperature 98.2 [degF] No Primary Care Physician [facility] Work Phone: 08-09-2022 13:51-0400 Body weight 86.4 kg No Primary Care Physician [facility] Work Phone: 08-04-2022 13:54-0400 Diastolic blood pressure 76 mm[Hg] Melania Mitchell MD Work Phone: [facility] 08-04-2022 13:54-0400 Heart rate 100 /min Melania Mitchell MD Work Phone: [facility] 08-04-2022 13:54-0400 Respiratory rate 16 /min Melania Mitchell MD Work Phone: [facility] 08-04-2022 13:54-0400 SaO2% (BldA) [Mass fraction] 98 % Melania Mitchell MD Work Phone: [facility] 08-04-2022 13:54-0400 Systolic blood pressure 102 mm[Hg] Melania Mitchell MD Work Phone: [facility] 08-04-2022 10:48-0400 Body height 154.9 cm Melania Mitchell MD Work Phone: [facility] 08-04-2022 10:48-0400 Body mass index (BMI) [Ratio] 30.23 kg/m2 Melania Mitchell MD Work Phone: [facility] 08-04-2022 10:48-0400 Body temperature 98.2 [degF] Melania Mitchell MD Work Phone: [facility] 08-04-2022 10:48-0400 Body weight 72.58 kg Melania Mitchell MD Work Phone: [facility] 07-08-2022 15:30-0400 Body temperature 98.2 [degF] No Primary Care Physician [facility] Work Phone: 07-08-2022 15:30-0400 Diastolic blood pressure 78 mm[Hg] No Primary Care Physician [facility] Work Phone: 07-08-2022 15:30-0400 Heart rate 89 /min No Primary Care Physician [facility] Work Phone: 07-08-2022 15:30-0400 Respiratory rate 14 /min No Primary Care Physician [facility] Work Phone: 07-08-2022 15:30-0400 SaO2% (BldA) [Mass fraction] 98 % No Primary Care Physician [facility] Work Phone: 07-08-2022 15:30-0400 Systolic blood pressure 124 mm[Hg] No Primary Care Physician [facility] Work Phone: 06-30-2022 00:36-0400 Diastolic blood pressure 76 mm[Hg] No Primary Care Physician [facility] Work Phone: 06-30-2022 00:36-0400 Heart rate 79 /min No Primary Care Physician [facility] Work Phone: 06-30-2022 00:36-0400 Respiratory rate 16 /min No Primary Care Physician [facility] Work Phone: 06-30-2022 00:36-0400 SaO2% (BldA) [Mass fraction] 96 % No Primary Care Physician [facility] Work Phone: 06-30-2022 00:36-0400 Systolic blood pressure 113 mm[Hg] No Primary Care Physician [facility] Work Phone: 06-29-2022 23:48-0400 Body temperature 98.9 [degF] No Primary Care Physician [facility] Work Phone: 06-29-2022 18:00-0400 Body mass index (BMI) [Ratio] 33 kg/m2 No Primary Care Physician [facility] Work Phone: 06-29-2022 18:00-0400 Body weight 79.37 kg No Primary Care Physician [facility] Work Phone: Encounters Encounter Date Encounter Type Care Provider Facility Start: 07-29-2025 End: 07-30-2025 ambulatory No Primary Care Physician Facility:[facility] Start: 07-09-2025 End: 07-09-2025 ambulatory No Primary Care Physician Facility:[facility] Start: 07-09-2025 End: 07-09-2025 ambulatory No Primary Care Physician Facility:[facility] Start: 07-03-2025 End: 07-03-2025 ambulatory No Primary Care Physician Facility:[facility] Start: 07-03-2025 End: 07-03-2025 ambulatory No Primary Care Physician Facility:[facility] Start: 06-26-2025 End: 06-26-2025 ambulatory [facility] Start: 06-20-2025 End: 06-20-2025 ambulatory [facility] Start: 06-06-2025 End: 06-06-2025 ambulatory No Primary Care Physician Facility:[facility] Start: 05-30-2025 End: 05-30-2025 ambulatory No Primary Care Physician Facility:[facility] Start: 05-30-2025 End: 05-30-2025 ambulatory Rama Stuart Facility:[facility] Start: 05-14-2025 End: 05-14-2025 ambulatory Rama Stuart Facility:[facility] Start: 05-14-2025 End: 05-14-2025 ambulatory No Primary Care Physician Facility:[facility] Start: 05-07-2025 End: 05-07-2025 ambulatory No Primary Care Physician Facility:[facility] Start: 05-07-2025 End: 05-07-2025 ambulatory No Primary Care Physician Facility:[facility] Start: 04-09-2025 End: 04-09-2025 ambulatory No Primary Care Physician Facility:[facility] Start: 04-09-2025 End: 04-09-2025 ambulatory [place] [place] [employer]RICIAN Facility:[facility] Start: 03-15-2025 End: 03-15-2025 ambulatory [facility] [place] [employer]ERGROUND ELECTRICIAN Facility:[facility] Start: 03-13-2025 End: 03-13-2025 ambulatory [place] UNDERGROUND ELECTRICIAN Facility[facility] Start: 03-13-2025 End: 03-13-2025 ambulatory [place] [place] [employer] ELECTRICIAN Facility:[facility] Start: 01-02-2025 End: 01-02-2025 Emergency department patient visit Mendez Gardner Facility:[facility] Start: 08-03-2024 End: 08-18-2024 ambulatory KIRSTEN MAST SEC REPORTING CONSULTANT-HYDROGENATION OPERATOR Facility:[facility] Start: 08-03-2024 End: 08-18-2024 Physical therapy management KIRSTEN MAST SEC REPORTING CONSULTANT-HYDROGENATION OPERATOR [facility] Start: 02-18-2024 End: 02-19-2024 ambulatory KIRSTEN MAST SEC REPORTING CONSULTANT-HYDROGENATION OPERATOR Facility:[facility] Start: 02-18-2024 End: 02-18-2024 Patient encounter procedure KIRSTEN MAST SEC REPORTING CONSULTANT-HYDROGENATION OPERATOR [facility] Start: 10-15-2023 End: 10-16-2023 ambulatory OSMAN TORRES PMHNP-BC Facility:[facility] Start: 10-15-2023 End: 10-15-2023 Patient encounter procedure OSMAN TORRES PMHNP-BC [facility] Start: 03-30-2023 End: 04-02-2023 Evaluation and management of inpatient MARTINEZ NÚÑEZ MD Facility:[facility] Start: 03-30-2023 End: 04-02-2023 Evaluation and management of inpatient SUNIL GRAHAM MD [facility] Start: 03-18-2023 End: 03-18-2023 ambulatory MARTINEZ NÚÑEZ MD Facility:[facility] Start: 03-15-2023 End: 03-16-2023 ambulatory SUNIL GRAHAM MD Facility:[facility] Start: 03-15-2023 End: 03-15-2023 Patient encounter procedure SUNIL GRAHAM MD [facility] Start: 03-09-2023 End: 03-14-2023 ambulatory LONG DICKERSON MD Facility:[facility] Start: 03-09-2023 End: 03-10-2023 ambulatory LONG DICKERSON MD Facility:[facility] Start: 03-09-2023 End: 03-13-2023 Outreach Lab LONG DICKERSON MD [facility] Start: 03-09-2023 End: 03-09-2023 Patient encounter procedure LONG DICKERSON MD [facility] Start: 03-07-2023 End: 03-07-2023 ambulatory MARTINEZ NÚÑEZ MD Facility:[facility] Start: 03-07-2023 End: 03-07-2023 SAME DAY STAY MARTINEZ NÚÑEZ MD [facility] Start: 03-06-2023 End: 03-06-2023 ambulatory MARTINEZ NÚÑEZ MD Facility:[facility] Start: 03-06-2023 End: 03-06-2023 SAME DAY STAY MARTINEZ NÚÑEZ MD [facility] Start: 01-26-2023 End: 01-26-2023 SAME DAY STAY MARTINEZ NÚÑEZ MD [facility] Start: 01-25-2023 End: 01-25-2023 Patient encounter procedure SUNIL GRAHAM MD [facility] Start: 01-19-2023 End: 01-19-2023 Patient encounter procedure SUNIL GRAHAM MD [facility] Start: 01-05-2023 End: 01-05-2023 Patient encounter procedure SUNIL GRAHAM MD [facility] Start: 12-03-2022 Simin kirk DO Work Phone: [facility] Comment on above: Med Change Request Start: 11-18-2022 End: 11-18-2022 SAME DAY STAY SUNIL GRAHAM MD [facility] Start: 11-13-2022 End: 11-13-2022 Patient encounter procedure AKIRA MENARDKINSON SEC REPORTING CONSULTANT-HYDROGENATION OPERATOR [facility] Start: 10-29-2022 End: 10-29-2022 ambulatory CHEKO MCCLELLAND Facility:[facility] Start: 10-14-2022 End: 10-14-2022 ambulatory GRETEL QUINTANA Facility:[facility] Start: 10-14-2022 End: 10-14-2022 Patient encounter procedure Gretel Quintana MD Work Phone: Obstetrics/Gynecolog y Comment on above: Encounter for superv ision of normal first in second trimester (Primary Dx); Need for influenza vaccination; 15 weeks gestation of Start: 09-21-2022 End: 09-21-2022 ambulatory FLORENCE HEWITT Facility:[facility] Start: 09-17-2022 End: 09-17-2022 ambulatory BRAULIO HOLLINGSWORTH Facility:[facility] Start: 08-21-2022 ambulatory Braulio Hollingsworth MD Work Phone: Obstetrics/Gynecolog y Comment on above: Luz oliveira Start: 08-19-2022 End: 08-19-2022 ambulatory BRAULIO HOLLINGSWORTH Facility:[facility] Start: 08-19-2022 End: 08-19-2022 Patient encounter procedure Braulio Hollingsworth MD Work Phone: Obstetrics/Gynecolog y Comment on above: Encounter for superv ision of normal first in first trimester (Primary Dx) with uncer tain dates in first trimester (Primary Dx) Start: 08-14-2022 End: 08-14-2022 ambulatory TANESHA HILTON Facility:[facility] Start: 08-10-2022 Telephone encounter Braulio connolly MD Work Phone: Obstetrics/Gynecolog y Comment on above: Patient Update Start: 08-09-2022 End: 08-09-2022 Emergency department patient visit No Primary Care Physician [facility] Start: 08-04-2022 End: 08-04-2022 Emergency department patient visit Melania Mitchell [facility] Start: 08-04-2022 End: 08-04-2022 Emergency department patient visit Melania Mitchell MD Work Phone: [facility] Comment on above: Threatened miscarria ge in early (Primary Dx) Start: 07-20-2022 End: 07-20-2022 ambulatory No Primary Care Physician [facility] Work Phone: Start: 07-20-2022 End: 07-20-2022 Discharged Recurring No Primary Care Physician [facility] Start: 07-20-2022 Registered Recurring [facility] Start: 07-09-2022 Telephone encounter Ledy wang MD Work Phone: [facility] Comment on above: Missed Appointment ( #1 No Show, #1 Letter) Start: 07-08-2022 End: 07-08-2022 Patient encounter procedure No Primary Care Physician [facility] Start: 06-29-2022 End: 06-30-2022 Emergency department patient visit No Primary Care Physician [facility] Start: 05-31-2022 End: 05-31-2022 Emergency department patient visit HIWOT HUDSON Facility:[facility] Start: 12-31-2021 End: 12-31-2021 Emergency department patient visit JAYDE YEAGER Facility:[facility] Start: 01-27-2021 End: 01-27-2021 ambulatory Alex [phone] Lynsey [phone] Facility:[facility] Start: 12-25-2018 Patient encounter procedure Facility:[id number] Start: [...] Speci men Type: BLOOD SPECIMEN Ordering Facility: [facility] Address: [address] [place] [id number] Performed By: #### T SPN #### [facility] [id number] [address] [place] [address] [place] Start: 08-19-2022 Antibody screen rbc each serum technique Braulio Hollingsworth MD Work Phone: Start: 08-19-2022 Blood count complete automated Braulio Hollingsworth MD Work Phone: Start: 08-19-2022 URINE OB DIP B/O Alta Hollingsworth MD Work Phone: Start: 08-19-2022 Us uterus l imited 1/> fetuses Braulio Hollingsworth MD Work Phone: Start: 08-14-2022 Antibody screen CHEKO M JONATHAN Comment on above: Order Comment: Speci men Type: BLOOD SPECIMEN Ordering Facility: [facility] Address: [address] [place], [place] [id number] Performed By: #### T SPN #### [facility] CLIA [id number] [address] [place] Start: 08-09-2022 Transvaginal obstetr [...] of wisdom tooth (body structure) 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 SEC REPORTING CONSULTANT-HYDROGENATION OPERATOR Plan of Treatment Date Care Activity Detail Author Start: 08-19-2025 PAP TESTING PAP TESTING [facility] Start: 08-01-2025 ambulatory Ambulatory Facility:[facility] Start: 05-14-2024 PAP TESTING PAP TESTING [facility] Start: 08-19-2023 CHLAMYDIA SCREENING (18-24) CHLAMYDIA SCREENING (18-24) [facility] Start: 08-19-2023 GC (GONORRHEA) SCREE SAADIA (18-24) GC (GONORRHEA) SCREENING (18-24) [facility] Start: 10-14-2022 End: 10-14-2023 OBSTETRIC ULTRASOUND WHI OBSTETRIC ULTRASOUND [facility]I Anc Imaging Routine Encounter for supervision of normal first in second trimester Expected: 10/14/2022, Expires: 10/14/2023 [facility] Work Phone: Comment on above: Expected: 10/14/2022 , Expires: 10/14/2023 Start: 10-11-2022 DEPRESSION ASSESSMENT DEPRESSION ASS ESSMENT [facility] Start: 08-19-2022 End: 10-19-2022 Hepatitis B virus surface Ab [Presence] in Serum by Immunoassay [facility] Work Phone: Comment on above: Expected: 08/19/2022 , Expires: 10/19/2022 Start: 08-19-2022 End: 10-19-2022 Hepatitis C virus Ab [Presence] in Serum [facility] Work Phone: Comment on above: Expected: 08/19/2022 , Expires: 10/19/2022 Start: 08-19-2022 End: 10-19-2022 HIV 1+2 Ab [Presence] in Serum or Plasma by Immunoassay [facility] Work Phone: Comment on above: Expected: 08/19/2022 , Expires: 10/19/2022 Start: 08-19-2022 End: 08-19-2023 NUCHAL TRANSLUCENCY WHI NUCHAL TRANSLUCENCY WHI Anc Imaging Routine Encounter for supervision of normal first in first trimester Expected: 08/19/2022, Expires: 08/19/2023 [facility] Work Phone: Comment on above: Expected: 08/19/2022 , Expires: 08/19/2023 Start: 08-19-2022 End: 10-19-2022 RUBELLA IGG AB [facility] Work Phone: Comment on above: Expected: 08/19/2022 , Expires: 10/19/2022 Start: 08-19-2022 End: 10-19-2022 SYPHILIS TOTAL W/REFLEX [facility] Work Phone: Comment on above: Expected: 08/19/2022 , Expires: 10/19/2022 Start: 07-08-2022 Patient referral [facility] Work Phone: Start: 06-11-2022 Influenza vaccination INFLUENZA (#1) [facility] Start: 05-14-2022 CHLAMYDIA SCREENING (18-24) CHLAMYDIA SCREENING (18-24) [facility] Start: 05-14-2022 GC (GONORRHEA) SCREE SAADIA (18-24) GC (GONORRHEA) SCREENING (18-24) [facility] Start: 05-11-2022 Influenza vaccination Flu vaccine (# 1) [facility] Start: 05-07-2022 Urine microalbumin profile DTAP,TDAP,TD (7 - Td or Tdap) [facility] Start: 10-11-2021 DEPRESSION ASSESSMENT DEPRESSION ASS ESSMENT [facility] Start: 05-17-2021 COVID-19 VACCINE (3 - Booster for Pfizer series) COVID-19 VACCINE (3 - Booster for Pfizer series) [facility] Start: 2020 Screening for malign ant neoplasm of cervix Pap smear [facility] Start: 2018 DTaP/Tdap/Td vaccine (1 - Tdap) DTaP/Tdap/Td vaccine (1 - Tdap) [facility] Start: 2017 HEPATITIS C [facility]CRE[facility] Start: 2017 Hepatitis C screening Hepatitis C [facility] Start: 2017 HIV SCREENING HIV SCREENING [facility] Start: 2015 Screening for Chlamy jarod trachomatis Chlamydia/GC screen [facility] Start: 2014 HIV screening HIV screen [facility] Start: 2013 PEDS TO ADULT TRANSI TION ANNUAL ASSESSMENT PEDS TO ADULT TRANSITION ANNUAL ASSESSMENT [facility] Start: 2011 Depression Screen Depression Screen [facility] Start: 2011 PEDS TO ADULT TRANSI TION INITIAL DISCUSSION PEDS TO ADULT TRANSITION INITIAL DISCUSSION [facility] Start: 2010 HPV vaccine (1 - 2-d ose series) HPV vaccine (1 - 2-dose series) [facility] Start: 2009 MENINGOCOCCAL B: Consider based on risk (1 of 2 - Risk Bexsero 2-dose series) MENINGOCOCCAL B: Consider based on risk (1 of 2 - Risk Bexsero 2-dose series) [facility] Start: 2000 Varicella vaccine (1 of 2 - 2-dose childhood series) Varicella vaccine (1 of 2 - 2-dose childhood series) [facility] Start: 04-09-2000 COVID-19 VACCINE (#1) COVID-19 VACCI NE (#1) [facility] Bacteria identified in Urine by Culture URINE CULTURE Microbiology Routine Encounter for supervision of normal first in first trimester 08/19/2022 2:08 PM EST [facility] Work Phone: Chlamydia trachomatis+Neisseria gonorrhoeae DNA [Presence] in Unspecified specimen by CHICHO with probe detection GC/CHLAMYDIA DNA DET Lab Routine Encounter for supervision of normal first in first trimester 08/19/2022 2:13 PM [facility] Work Phone: PAP FLUID CERVICAL SCREENING PAP FLUID CERVICAL SCREENING Lab Routine Encounter for supervision of normal first in first trimester Ordered: 08/19/2022 [facility] Work Phone: Comment on above: Ordered: 08/19/2022 Patient Education [facility] Work Phone: Patient referral [facility] Work Phone: [facility] Immunizations Immunization Date Immunization Notes Care Provider Dion rollins 08-24-2023 tetanus toxoid, redu ibis diphtheria toxoid, and acellular pertussis vaccine, adsorbed KIRSTEN MAST SEC REPORTING CONSULTANT-HYDROGENATION OPERATOR [facility] 02-01-2023 tetanus toxoid, redu ibis diphtheria toxoid, and acellular pertussis vaccine, adsorbed; Translations: [Boostrix (Tdap)] MARTINEZ NÚÑEZ MD [facility] Comment on above: Result Comment: [facility] [place] [phone] 10-14-2022 influenza virus vacc ine, unspecified formulation KIRSTEN MAST SEC REPORTING CONSULTANT-HYDROGENATION OPERATOR [facility] 10-14-2022 influenza, injectabl e, quadrivalent, contains preservative Gretel Quintana MD Work Phone: [facility] 03-22-2021 SARS-CoV-2 mRNA (tozinameran) vaccine KIRSTEN MAST SEC REPORTING CONSULTANT-HYDROGENATION OPERATOR [facility] 03-01-2021 SARS-CoV-2 mRNA (tozinameran) vaccine KIRSTEN MAST SEC REPORTING CONSULTANT-HYDROGENATION OPERATOR [facility] 09-20-2020 influenza virus vacc ine, unspecified formulation KIRSTEN MAST SEC REPORTING CONSULTANT-HYDROGENATION OPERATOR [facility] 09-08-2019 influenza virus vacc ine, unspecified formulation KIRSTEN MAST SEC REPORTING CONSULTANT-HYDROGENATION OPERATOR [facility] 03-02-2018 varicella virus vaccine JT TA MAST SEC REPORTING CONSULTANT-HYDROGENATION OPERATOR [facility] 07-26-2017 influenza virus vacc ine, unspecified formulation KIRSTEN MAST SEC REPORTING CONSULTANT-HYDROGENATION OPERATOR [facility] 05-11-2017 meningococcal polysaccharide (groups A, C, Y and W-135) diphtheria toxoid conjugate vaccine (MCV4P) KIRSTEN MAST SEC REPORTING CONSULTANT-HYDROGENATION OPERATOR [facility] 02-24-2016 meningococcal polysaccharide (groups A, C, Y and W-135) diphtheria toxoid conjugate vaccine (MCV4P) Ledy Vaughn MD Work Phone: [facility] 07-05-2014 influenza virus vacc ine, unspecified formulation KIRSTEN MAST SEC REPORTING CONSULTANT-HYDROGENATION OPERATOR [facility] 07-05-2014 influenza, injectabl e, quadrivalent, preservative free Ledy Vaughn MD Work Phone: [facility] Work Phone: 02-20-2014 human papilloma viru s vaccine, quadrivalent Ledy Vaughn MD Work Phone: [facility] 02-20-2014 Human Papillomavirus Quadval KIRSTEN MAST SEC REPORTING CONSULTANT-HYDROGENATION OPERATOR [facility] 05-18-2013 human papilloma viru s vaccine, quadrivalent Ledy Vaughn MD Work Phone: [facility] Work Phone: 05-07-2012 human papilloma viru s vaccine, quadrivalent Ledy Vaughn MD Work Phone: [facility] 05-07-2012 Meningococcal, MCV4, unspecified conjugate formulation(groups A, C, Y and W-135) Ledy Vaughn MD Work Phone: [facility] 05-07-2012 tetanus toxoid, redu ibis diphtheria toxoid, and acellular pertussis vaccine, adsorbed Ledy Vaughn MD Work Phone: [facility] 05-07-2012 varicella virus vaccine Chayo Harris MD Work Phone: [facility] 01-09-2005 diphtheria, tetanus toxoids and acellular pertussis vaccine Ledy Vaughn MD Work Phone: [facility] 01-09-2005 measles, mumps and rubella virus vaccine Ledy Vaughn MD Work Phone: [facility] 01-09-2005 poliovirus vaccine, inactivated Ledy Vaughn MD Work Phone: [facility] 04-26-2001 pneumococcal conjuga te vaccine, 7 valent Ledy Vaughn MD Work Phone: [facility] 02-17-2001 diphtheria, tetanus toxoids and acellular pertussis vaccine Ledy Vaughn MD Work Phone: [facility] Work Phone: 02-17-2001 haemophilus influenz ae type b vaccine, HbOC conjugate Ledy Vaughn MD Work Phone: [facility] Work Phone: 02-17-2001 pneumococcal conjuga te vaccine, 7 valent Ledy Vaughn MD Work Phone: [facility] 11-03-2000 measles, mumps and rubella virus vaccine Ledy Vaughn MD Work Phone: [facility] Work Phone: 11-03-2000 measles/mumps/rubell a virus vaccine KIRSTEN MAST SEC REPORTING CONSULTANT-HYDROGENATION OPERATOR [facility] 11-03-2000 varicella virus vaccine Chayo Harris MD Work Phone: [facility] Work Phone: 05-05-2000 diphtheria, tetanus toxoids and acellular pertussis vaccine Ledy Vaughn MD Work Phone: [facility] Work Phone: 05-05-2000 haemophilus influenz ae type b vaccine, HbOC conjugate Ledy Vaughn MD Work Phone: [facility] Work Phone: 05-05-2000 hepatitis B vaccine, pediatric or pediatric/adolescent dosage Ledy Vaughn MD Work Phone: [facility] Work Phone: 05-05-2000 poliovirus vaccine, inactivated Ledy Vaughn MD Work Phone: [facility] Work Phone: 03-03-2000 diphtheria, tetanus toxoids and acellular pertussis vaccine Ledy Vaughn MD Work Phone: [facility] Work Phone: 03-03-2000 haemophilus influenz ae type b vaccine, HbOC conjugate Ledy Vaughn MD Work Phone: [facility] Work Phone: 03-03-2000 poliovirus vaccine, inactivated Ledy Vaughn MD Work Phone: [facility] Work Phone: 1999 diphtheria, tetanus toxoids and acellular pertussis vaccine Ledy Vaughn MD Work Phone: [facility] Work Phone: 1999 haemophilus influenz ae type b vaccine, HbOC conjugate Ledy Vaughn MD Work Phone: [facility] Work Phone: 1999 hepatitis B vaccine, pediatric or pediatric/adolescent dosage Ledy Vaughn MD Work Phone: [facility] Work Phone: 1999 poliovirus vaccine, inactivated Ledy Vaughn MD Work Phone: [facility] Work Phone: 1999 hepatitis B pediatri c vaccine KIRSTEN CISNEROS SEC REPORTING CONSULTANT-[facility] 1999 hepatitis B vaccine, pediatric or pediatric/adolescent dosage Ledy Vaughn MD Work Phone: [facility] Work Phone: Payers Date Payer Category Payer Self-pay [id number] 2025 Unknown [id number] 2023 Unknown [id number] 2021 Unknown [id number] 2021 Unknown [id number] 2021 Unknown [id number] 1999 Unknown [id number] 2.16. 840.1.714347.3.579.2.356 1999 Unknown [id number] 2.16. 840.1.385436.3.579.2.356 1999 Unknown [id number] 2.16.8 40.1.884944.3.579.2.419 1999 Unknown [id number] 2.16. 840.1.048195.3.579.2.668 1999 Unknown [id number] 2.16.8 40.1.947262.3.579.2.627 1999 Unknown [id number] 2.16.8 40.1.567331.3.579.2.627 1999 Unknown [id number] 2.16.8 40.1.014588.3.579.2.627 1999 Unknown [id number] 2.16.8 40.1.809915.3.579.2.627 1999 Unknown [id number] 2.16.8 40.1.252520.3.579.2.627 1999 Unknown [id number] 2.16.8 40.1.877987.3.579.2.627 1999 Unknown [id number] 2.16.8 40.1.256945.3.579.2.627 1999 Unknown [id number] 2.16.8 40.1.765081.3.579.2.627 1999 Unknown [id number] 2.16.8 40.1.497139.3.579.2.627 1999 Unknown [id number] 2.16.8 40.1.597959.3.579.2.627 1999 Unknown [id number] 2.16. 840.1.239996.3.579.2.479 1999 Unknown [id number] 2.16. 840.1.673488.3.579.2.479 1999 Unknown [id number] 2.16. 840.1.610753.3.579.2.479 Unknown [id number] Unknown [facility] [id number] Unknown [facility] [id number] Unknown [facility] [id number] Unknown [id number] 2.16.8 40.1.416618.3.579.2.462 Unknown [id number] 2.16.8 40.1.244804.3.579.2.462 Unknown [id number] 2.16.8 40.1.804997.3.579.2.462 Unknown [id number] 2.16.8 40.1.604829.3.579.2.462 Unknown [id number] 2.16.8 40.1.447338.3.579.2.462 Unknown [id number] 2.16.8 40.1.962961.3.579.2.462 Unknown [id number] 2.16.8 40.1.292276.3.579.2.462 Unknown [id number] 2.16.8 40.1.515450.3.579.2.462 Unknown [id number] 2.16.8 40.1.109069.3.579.2.462 Unknown [id number] 2.16.8 40.1.507366.3.579.2.462 Unknown [id number] 2.16.8 40.1.069825.3.579.2.462 Unknown [id number] 2.16.8 40.1.406902.3.579.2.462 Unknown [id number] 2.16.8 40.1.199285.3.579.2.462 Unknown [id number] 2.16.8 40.1.687836.3.579.2.462 Unknown [id number] 2.16.8 40.1.959811.3.579.2.462 Unknown [id number] 2.16.8 40.1.353969.3.579.2.462 Unknown [id number] 2.16.8 40.1.049503.3.579.2.462 Unknown [id number] 2.16.8 40.1.489936.3.579.2.462 Unknown [id number] 2.16.8 40.1.416527.3.579.2.462 Unknown [id number] 2.16.8 40.1.011971.3.579.2.462 Social History Date Type Detail Facility Start: 12-31-2021 End: 07-28-2024 Tobacco smoking status NHIS Never smoked tobacco [facility] Start: 12-31-2021 End: 08-19-2022 Tobacco use and exposure Smokeless tobacco non-user [facility] Start: 12-31-2021 End: 10-14-2022 Alcohol intake Ex-drinker (finding) [facility] Start: 06-27-2013 End: 08-19-2022 Tobacco Comment dad smokes outside [facility] Start: 1999 Sex Assigned At Female C [facility] [facility] Start: 06-28-2022 End: 08-19-2022 Exposure to SARS-CoV-2 (event) Not sure [facility] Start: 2000 Sex Assigned At Not on file S scroll kit Work Phone: Start: 08-09-2022 End: 08-09-2022 Tobacco smoking status NHIS Unknown if ever smoked [facility] Work Phone: Start: 10-24-2020 Spouse/ Signif icant Other [facility] Work Phone: Start: 07-12-2022 [facility] Goals Date Patient Goal Desired Activity [...] UE's Reflexes: 1+ bilat biceps and triceps [facility] 04-02-2023 Functional Status Rooming in [facility] 04-01-2023 Functional Status [facility] 04-01-2023 Functional Status Independent [facility] 04-01-2023 Functional Status [facility] 03-30-2023 Functional Status Home independently [facility] 03-07-2023 Functional Status Ambulating in room [facility] Mental Status Date Assessment Result Facility 03-07-2023 Mental Status Orientation Oriented x 4 [facility] Clinical Notes 07-09-2022 to 02-18-2024 [...] 02/19/2024 1:39:46 AM Ordering Provider: KIRSTEN CISNEROS [facility] 10-15-2023 Evaluation + Plan note Diagnostic Tests PendingVitamin B12 Level 10/15/23Folate Level 10/15/23 Future Scheduled TestsGlucose Level 07/20/23Lipid Profile 07/20/23 [facility] 04-02-2023 Evaluation + Plan note Extrac barbara from: Title:Clinical Document Author:LONG DICKERSON MD Date:04/02/23 Subjective Comfortable with oral Motrin Locbenjamina small. Baby is eating well per bottle Stayed overnight due to elevated bili levels in baby Objective Looks very well. Independent in room. Abdomen: Soft, uterus firm at U- 2 Extremities: Nontender with 1+ edema VITALS CcycyrWlzqRBBthewUORnX8SVR1IxsgUe(kg) 04/02 00:3136.6--852546--92/20 78.0 04/01 16:2036.5--7916---- 04/01 08:4136.1--8114---- 03/31 23:3036.6--8416---- [...] q6h, 03/30/23 19:48:00 EDT Problems (4) Anxiety ([id number]) Body mass index 30+ - obesity (573062207) (938124262) UTI (urinary tract infection) ([id number]) ASSESSMENT/PLAN: PPD #2 after . Doing very well. Home today. Extracted from: Title:Clinical Document Author:LONG DICKERSON MD Date:03/31/23 Subjective Comfortable with oral Motrin Lochia small. Baby is nursing well. . Objective Looks very well. Independent in room. CVS: RRR Lungs: CTA B Abdomen: Soft, uterus firm at U- 1 Extremities: Nontender with 1+ edema VITALS AxipxhZnjcPIVwzytLKYaW9QKB8SsqhEn(kg) 03/31 08:3636.8--7816----03/30 78.0 03/31 05:4936--8216---- 03/31 02:00 RA 03/30 20:15----74063--TR 03/30 20:00----8018--RA 24 Hr Tmax: 36.8 at [...] q6h, 03/30/23 19:48:00 EDT Problems (4) Anxiety ([id number]) Body mass index 30+ - obesity (318494413) (047314337) UTI (urinary tract infection) ([id number]) ASSESSMENT/PLAN: PPD #1 after Outlet vacuum delivery for maternal exhaustion Doing well. Home after 24hr. Extracted from: Title:Clinical Document Author:LONG DICKERSON MD Date:03/30/23 CHIEF COMPLAINT: Membranes ruptured with a "pop" at 0600 HISTORY OF PRESENT ILLNESS: 22-year-old [...] SYSTEMS: All negative ACTIVE PROBLEMS: (4) Anxiety ([id number]) Body mass index 30+ - obesity (460482190) (241977879) UTI (urinary tract infection) ([id number]) ALLERGIES: (1) CeleXA FAMILY HISTORY: No inheritable diseases. SOCIAL HISTORY: . Denies tobacco use Denies alcohol use. No illicit drug use. PHYSICAL EXAM: VITALS: ClcllbXswvWLNcrzzIZQnF1AMR4ZjyvCv(kg) 03/30 10:5735.6--7518----03/30 78.0 03/30 10:0535.9 03/30 09:0536.1 [...] Intramuscular, Once, PRN, Other (see order comments), 03/30/23:19:00 EDT miSOPROStol, Start: 03/30/23 7:19:00 EDT, Dose = 1,000 mcg, Rectal, Once, PRN, Other (see order comments), 03/30/23::00 EDT nalbuphine, Start: 03/30/23 7:: EDT, Dose = 10 mg, = 1 mL, IV Push, q2h, PRN, Pain, 03/30/23::00 EDT ondansetron, Start: 03/30/23::00 EDT, Dose = 4 mg, = 2 mL, IV Push, q4h, PRN, Nausea, 03/30/23:00 EDT oxytocin, Start: 03/30/23::00 EDT, Dose = 20 unit(s), = 2 mL, Intramuscular, Once, PRN, Other (see order comments), 03/30/23::00 EDT oxytocin 20 unit(s) + LR Premix Diluent 1,000 mL, Start: 03/30/23:19:00 EDT, Rate: 999 mL/hr, 03/30/23::00 EDT terbutaline, Start: 03/30/23 7::00 EDT, Dose = 0.25 mg, = 0.25 mL, Subcutaneous, AsDirected, PRN, Other (see order comments), 03/30/23::00 EDT tranexamic acid, Start: 03/30/23::00 EDT, Dose = 1 gram(s), IV Piggyback, [...] Date:04/20/2023 02:00:00 PM Scheduled Provider:SUNIL GRAHAM MD Location:[facility] Appointment Type: OV [facility] 06-22-2023 Note day #2 progress note: Subjective: [...] MARTINEZ NÚÑEZ MD on 04/01/2023 09:01 AM [facility]06-21-2023 Hospital Discharge instructions Patient Education 03/31/2023 12:34:52 [...] work with your health care provider or design and sales consultant. If you are not : ?Avoid [...] about methods of control (contraception). Medicines Take nwds-vig-xifrzrv and prescription medicines only as told by [...] 07/24/2008 Document Revised: 09/30/2018 Document Reviewed: 07/11/2018 [employer] Patient Education 2020 [id number] outdoors. 03/31/2023 12:34:52 7b- Depression and Blues (07/2020) (CUSTOM) Starla Depression and Blues All mothers are at risk of developing depression or the " blues." These mood changes can occur right after [...] psychosis. Often, a screening tool called the [place] Depression Scale is used to diagnose depression [...] music. Avoid alcohol. Ask for help with customer relations representative, cooking, grocery shopping, or running errands as needed. Do nottry to do everything. Talk to people close to you about how you are feeling. Get support from your partner, family members, and friends. Try to stay positive in how you think. Think about the things you are grateful for. Do not spend a lot of time alone. Only take ctup-iqh-bjbheks or prescription medicine as directed by your [...] not doing well or get worse. Resource: ExitCare Patient Information 2015 [facility]. This information is not intended to replace advicegiven to you by your health care provider. Make sure you discuss any questions you have with your health care provider. Follow Up Care 03/30/2023 06:39:24 With:OLNG DICKERSON Address: [address] [facility] [place] [address]- [phone] Business (1) When: Unknown [facility] 06-21-2023 Note Date of Service 03/31/23 Chief Complaint Subjective 22 yo PPD#1 from [facility] for maternal exhaustion Doing well. pain well [...] 1 herlinda, Perineum, AsDirected benzocaine topical 20% [place] 1 spray(s), Perineum, q1h bisacodyl 10 mg [...] SUNIL GRAHAM MD on 03/31/2023 11:37 AM [facility]06-21-2023 Anesthesiology Consult note Patient: LUZ OLIVEIRA Age: 22 years Sex: Female : 2000 Associated Diagnoses: None Author: JENNIFER MERA SEC REPORTING CONSULTANT-MANAGER DOCUMENT Assessment Postanesthesia assessment Vitals: Vital signs from flowsheet : Vital Signs 03/31/2023 5:49 EDT Temperature Temporal Artery 36 DegC Heart Rate Monitored 82 bpm Respiratory Rate 16 br/min Systolic Blood Pressure Non-Invasive 109 mmHg Diastolic Blood Pressure Non-Invasive 54 mmHg LOW 03/30/2023 20:15 EDT Heart Rate Monitored 102 [...] mmHg Diastolic Blood Pressure Non-Invasive 94 mmHg HI 03/30/2023 18:56 EDT Heart Rate Monitored 98 [...] by JENNIFER MERA on 03/31/2023 06:15 AM [facility]06-20-2023 Note Patient seen at 1730 and VE [...] LONG DICKERSON MD on 03/30/2023 05:30 PM [facility]-20-2023 Note Patient seen at 1730 and VE [...] LONG DICKERSON MD on 03/30/2023 05:30 PM [facility]-20-2023 Note Patient seen at 1730 and VE [...] LONG DICKERSON MD on 03/30/2023 05:30 PM [facility]-20-2023 Note CHIEF COMPLAINT: Membranes ruptured with a "pop" at 0600 HISTORY OF PRESENT ILLNESS: 22-year-old [...] SYSTEMS: All negative ACTIVE PROBLEMS: (4) Anxiety ([id number]) Body mass index 30+ - obesity (067350759) (476610498) UTI (urinary tract infection) ([id number]) ALLERGIES: (1) CeleXA FAMILY HISTORY: No inheritable diseases. SOCIAL HISTORY: . Denies tobacco use Denies alcohol use. No illicit drug use. PHYSICAL EXAM: VITALS: XyuemcWcalINTayheTXTtN4DLG9YcmtZk(kg) 03/30 10:5735.6--7518----03/30 78.0 03/30 10:0535.9 03/30 09:0536.1 [...] LONG DICKERSON MD on 04/02/2023 11:08 AM [facility]-20-2023 Anesthesiology Consult note Patient: LUZ OLIVEIRA Age: 22 years Sex: Female : 2000 Associated Diagnoses: None Author: JENNIFER MERA SEC REPORTING CONSULTANT-MANAGER DOCUMENT Preoperative Information laboring Anesthesia history Patient's history: [...] Problem list: Medical Anxiety / SNOMED CT [id number] / Confirmed Body mass index 30+ - obesity / SNOMED CT 072820585 / Confirmed / SNOMED CT 920256664 / Confirmed UTI (urinary tract infection) / SNOMED CT [id number] / Confirmed, Active Problems (4) Anxiety Body mass index 30+ - obesity UTI (urinary tract infection) Histories Past Medical History: Active Anxiety ([id number]) UTI (urinary tract infection) ([id number]) Family History: Cancer Grandparent Comments: 10/22/2022 14:27 Poonam Han LPN maternal, brain Cardiac pacemaker Mother Diabetes mellitus Mother Asthma Grandparent Breast cancer Grandparent Heart disease Mother HTN - Hypertension Father COPD Grandparent Diabetes Grandparent Procedure history: Bourg tooth (91007572). Social History Social & Psychosocial Habits Alcohol [...] Signs(last 24 hrs) Last Charted Heart Rate Lbqkyxtqx63 bpm (MAR 30 10:57) Resp Rate 18 br/min (MAR 30 10:57) KIT138 mmHg (MAR 30 10:57) DBPL 59mmHg (MAR 30 10:57) BMI32.47 (MAR 30 07:49) Measurements from flowsheet : Measurements 03/30/2023 7:49 EDT Height 155.0 cm Admission Weight 78 kg [place] Body Weight 47.85 kg BSA Admission 1.77 [...] Cervix Yes Vaginal Exam Performed By ZAK Spencer's Score 9 03/30/2023 10:34 EDT nalbuphine 10 [...] Height 155.0 cm Admission Weight 78 kg [place] Body Weight 47.85 kg BSA Admission 1.77 [...] Baby For Adoption No Surrogate No Discharge [place] Physician P [facility] Participant No Safe Sleep Environment for [...] Loss No Safety Brochure Information Reviewed Yes Starla Osei Video Viewed Previously viewed Teaching Evaluation Refused information Preferred Written Language Irish Preferred Spoken Language Irish Chief Complaint SROM Mode of Arrival Ambulatory Information Given by Patient Patient's Current Physicians Dr Graham Emergency Contact Number Luis Daniel Oliveira [phone] Belongings At Bedside Cell phone, Other Sales Support Worker Personal Home Medications Received No home medications [...] FHR Interpretation Category: Category One 03/30/2023 7:14 EDT [place] History and Physical History and Physical . Assessment and Plan [place] Society of Anesthesiologists (ASA) physical status classification: Class II. Anesthetic Preoperative Plan Anesthetic technique: Epidural. Informed consent: signed by patient. Digitally Signed by JENNIFER MERA on 03/30/2023 01:37 PM [facility]06-20-2023 Note Date of Service 03/30/23 Chief Complaint SROM History of Present Illness 22 yo G1@39.2 presents with large gush of fluid around 0600 and regular contractions. c/bobesity and recent growth US AC 7%le overall 15%le. Noted blood tinged fluid. Growth at 37 weeks for obesity showed borderline low fluid 5 cm, growth in 15%le. 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 history: Menarche: Menses: Menopause: n/a HRT: n/a [...] of breast bx: no Colonoscopy: DXA: Family 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 history: Breast/colon/ovarian/uterine cancer: MGM w breast ca [...] 7:19:00 EDT Lactated Ringers Infusion, Start: 03/30/23 7::00 EDT, Dose = 500 mL, Soln, IV Bolus, AsDirected, PRN, Other (see order comments), Rate: 500 mL/hr, 03/30/23:: EDT Lactated Ringers Infusion 1,000 mL, Start: 03/30/23:: EDT, Rate: 100 mL/hr, 03/30/23:: EDT lidocaine, Start: 03/30/23: EDT, Dose = 20 mg, = 2 mL, Perineum, AsDirected, PRN, to perineal sutures, 1 dose(s), Stop: Limited # of times, 03/30/23::00 EDT methylergonovine, Start: 03/30/23::00 EDT, Dose = 0.2 mg, = 1 mL, Intramuscular, Once, PRN, Other (see order comments), 03/30/23::00 EDT miSOPROStol, Start: 03/30/23 7::00 EDT, Dose = 1,000 mcg, Rectal, Once, PRN, Other (see order comments), 03/30/23::00 EDT nalbuphine, Start: 03/30/23 7::00 EDT, Dose = 10 mg, = 1 mL, IV Push, q2h, PRN, Pain, 03/30/23::00 EDT ondansetron, Start: 03/30/23::00 EDT, Dose = 4 mg, = 2 mL, IV Push, q4h, PRN, Nausea, 03/30/23::00 EDT oxytocin, Start: 03/30/23::00 EDT, Dose = 20 unit(s), = 2 mL, Intramuscular, Once, PRN, Other (see order comments), 03/30/23::00 EDT oxytocin 20 unit(s) + LR Premix Diluent 1,000 mL, Start: 03/30/23:19:00 EDT, Rate: 999 mL/hr, 03/30/23:19:00 EDT terbutaline, Start: 03/30/23 7:19:00 EDT, Dose = 0.25 mg, = 0.25 mL, Subcutaneous, AsDirected, PRN,Other (see order comments), 03/30/23 7:19:00 EDT tranexamic acid, Start: 03/30/23 7:19:00 EDT, [...] infection) Historical No qualifying data Procedure/Surgical History Bourg tooth Medications Home Medications (5) Active AD [...] SUNIL GRAHAM MD on 03/30/2023 07:30 AM [facility]05-28-2023 Hospital Discharge instructions Patient Education 03/07/2023 20:26:05 7 - Labor and Delivery Outpatient Instructions (CUSTOM) [facility] HOME-GOING INSTRUCTIONS _X_ [...] crackers, bananas, Jell-O, cooked carrots, applesauce. ___ [place] diet. Avoid caffeine, chocolate, alcohol, spiced/greasy foods. [...] the nearest Emergency Room for assistance. Form [id number] D: 09/18 Document Released: 09/27/2006 Document Revised: 09/15/2012 Document Reviewed: 09/27/2006 ExitCare Patient Information 2011 [employer]. Follow Up Care 03/07/2023 19:56:20 With:MARTINEZ NÚÑEZ MD Address: [address] [place] [address] [place] [address]- [phone] When:03/09/2023 [facility] 05-27-2023 Hospital Discharge instructions Patient Education 03/06/2023 18:27:44 7 - Labor and Delivery Outpatient Instructions (CUSTOM) [facility] HOME-GOING INSTRUCTIONS _X_ [...] crackers, bananas, Jell-O, cooked carrots, applesauce. ___ [place] diet. Avoid caffeine, chocolate, alcohol, spiced/greasy foods. [...] the nearest Emergency Room for assistance. Form [id number] D: 09/18 Document Released: 09/27/2006 Document Revised: 09/15/2012 Document Reviewed: 09/27/2006 ExitCare Patient Information 2012 [employer]. [facility] 04-18-2023 Hospital Discharge instructions Patient Education 01/26/2023 03:27:22 7 - Labor and Delivery Outpatient Instructions (CUSTOM) [facility] HOME-GOING INSTRUCTIONS _X_ [...] crackers, bananas, Jell-O, cooked carrots, applesauce. ___ [place] diet. Avoid caffeine, chocolate, alcohol, spiced/greasy foods. [...] the nearest Emergency Room for assistance. Form [id number] D: 09/18 Document Released: 09/27/2006 Document Revised: 09/15/2012 Document Reviewed: 09/27/2006 ExitCare Patient Information 2012 [employer]. Follow Up Care 01/26/2023 00:53:10 With:Follow up with primary care provider Address:Unknown When: Unknown [facility] 02-25-2023 Miscellaneous Notes* Telephone Encounter - Alex Garcia DO - 12/05/2022 5:08 PM EST Not a CFM patient [facility] Hospital Discharge instructions Patient Education 11/18/2022 13:18:57 7 - Labor and Delivery Outpatient Instructions (CUSTOM) [place] [facility] HOME-GOING INSTRUCTIONS _X_ [...] crackers, bananas, Jell-O, cooked carrots, applesauce. ___ [place] diet. Avoid caffeine, chocolate, alcohol, spiced/greasy foods. [...] the nearest Emergency Room for assistance. Form [id number] D: 09/18 Document Released: 09/27/2006 Document Revised: 09/15/2012 Document Reviewed: 09/27/2006 [facility] 2011 [employer] [facility]. Follow Up Care 11/18/2022 11:50:05 With:SUNIL GRAHAM Address: [address] [facility] [place] [address] [phone] Business (1) When: Unknown [facility] 01-19-2023 NoteHNO ID: [id number] Author: Tad Shaw DO Service: Obstetrics Author [...] with plan. Tad Shaw DO 4:21 AM 10/29/2022[facility]01-19-2023 NoteHNO ID: [id number] Author: Tad Shaw DO Service: Obstetrics Author [...] Diagnosis Date Cognitive disorder IEP per the [facility] Kidney stone [...] SpO2: 98 % Height: 154.9 cm (5' 1") Weight: 81.2 kg (179 lb) BMI: 33.82 [...] Oliveira DATE: October 29, 2022 TIME: 3:25 [facility]01-19-2023 NoteCOVID RESULT: SARS-CoV-2 (Agent of COVID-19) Not Detected by RT-PCR or equivalent method. This test has been authorized by FDA under an Emergency Use Authorization (EUA). INFLUENZA A PCR: Negative for Influenza A by RT-PCR INFLUENZA B PCR: Negative for Influenza B by RT-PCR RSV PCR: Negative for Respiratory Syncytial Virus (RSV) by [facility]portComment on above:Performed By: #### [id number] ####[facility] LABORATORYCLIA [id number] OF [id number] Miscellaneous Notes* Quick Notes - Gretel Quintana [...] vaccine). Gretel Quintana MD [facility] Nurse Note* Aimee Desir Ma - 10/14/2022 11:01 AM EST Movement? Flutters Vaginal Bleeding: NO Vaginal fluid leakage of fluid: NO Contractions: no contractions documented in [facility]Bu[facility]12-[facility]-2022 NoteHNO ID: [id number] Author: Braulio Hollingsworth MD Service: ? Author Type: Physician Type: Progress Notes Filed: 09/17/2022 2:28 PM Note Text: Please refer to quick note and flow sheet. [facility]2022 NoteHNO ID: [id number] Author: Braulio Hollingsworth MD Service: ? 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 No current [...] 4 weeks or sooner prn. Braulio Hollingsworth [facility]11-09-2022 NoteHNO ID: [id number] Author: Braulio Hollingsworth MD Service: ? Author Type: Physician Type: Progress Notes Filed: 08/19/2022 5:28 PM Note Text: OB point of care ultrasound was performed. See imaging tab for details. Braulio Hollingsworth 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 loratadine (CLARITIN) 10 mg tablet Take 1 tablet by mouth once daily. fluticasone (FLONASE) 50 mcg/actuation nasal spray Use 1 [place] in each nostril once daily. No current [...] prn. Braulio Hollingsworth MD documented in this [facility]11-09-2022 Instructions* Patient Instructions* Braulio Hollingsworth MD - 08/19/2022 1:48 PM EST Please select the following link to access the [facility] Your Guide to a Healthy . [email or web address] documented in this [facility]11-09-2022 History of Present illness Narrative* Braulio Hollingsworth MD - 08/19/2022 1:41 PM EST OB point of care ultrasound was performed. See imaging tab for details. Braulio Hollingsworth MD documented in this [facility]11-09-2022 Nurse Note* Jennifer Stevenson MA - 08/19/2022 1:07 PM EST Movement? Too early Vaginal Bleeding: YES/MD NOTIFIED-Has had for 2 weeks Vaginal fluid leakage of fluid: NO Contractions: no contractions documented in this [facility]11-04-2022 NoteHNO ID: [id number] Author: Zuhair Condon DO Service: Obstetrics Author Type: Resident Type: Procedures Filed: 08/14/2022 9:46 PM Note Text: OBSTETRICS LIMITED OB ULTRASOUND REPORT SERVICE DATE: August 14, 2022 SERVICE TIME: 2144 INDICATION: Evaluate vaginal bleeding Number of fetuses: 1 General Evaluation: heart motion: Normal FHR: 148 bpm Amniotic fluid: Normal Interpretation: Normal intrauterine Images associated with this report can be found under the "Get Images" tab in Epic. SIGNATURE: Zuhair Condon DO PATIENT NAME: Luz Oliveira DATE: August 14, 2022 TIME: 9:44 PM PAGER/CONTACT #: [phone] NoteHNO ID: [id number] Author: Zuhair Condon DO Service: Obstetrics Author Type: Resident Type: Progress Notes Filed: 08/14/2022 9:56 PM Note Text: Attestation signed by Tanesha Hilton DO at 08/14/2022 10:12 PM I saw and evaluated the patient. Discussed with the resident and agree with resident's findings and plan as documented in the resident's note. 08/14/22 1748 08/14/22 1848 08/14/22 1856 BP: 118/58 128/72 Pulse: (!) 100 108 Resp: 20 20 Temp: 36.8 ?C (98.2 ?F) 36.8 ?C (98.2 ?F) TempSrc: Oral Temporal SpO2: 100% 100% Weight: 63.5 kg (140 lb) 72.6 kg (160 lb) Height: 154.9 cm (5' 1") 154.9 cm (5' 1") Tanesha Hilton DO OBSTETRICS OB ED PROGRESS NOTE SERVICE DATE: August 14, 2022 SERVICE TIME: 2003 Subjective Patient's stated reason for arrival: "bleeding at 7 weeks " CHIEF COMPLAINT: Vaginal bleeding HISTORY OF THE PRESENT ILLNESS: The patient is a 21 year old female, , who is at 6w5d with an KIMO of 04/04/2023, by Patient Reported dating method. Patient reports that she is approximately 7 weeks and presents with concerns for continuous vaginal spotting/bleeding for 1 week. Patient states that she originally went to [facility] on 08/09/22. 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 No mucopurulent vaginal discharge, lesions, or itchiness Skin: denies rashes or lesions Objective LAST VITALS: Pulse: 108 BP: 128/72 Resp: 20 Temp: 36.8 ?C (98.2 ?F) SpO2: 100 % Height: 154.9 cm (5' 1") Weight: 72.6 kg (160 lb) BMI: 30.23 [...] at time of discharge (more content not included)...[facility]10-[facility] Miscellaneous Notes* Telephone Encounter - Nisa Murphy - 08/10/2022 9:31 AM EDT Patient was in ED for bleeding. Not currently bleeding has new OB appointment 08/19. Please advise if you would like to see her sooner. documented [facility] Hospital Discharge instructions* Discharge Instructions* Melania Mitchell MD - 08/04/2022 1:22 PM EDT Please call your OB today to schedule a follow up visit in the next 2 days. * Attachments The following attachments cannot be sent through Care Everywhere. * Miscarriage: Threatened (Irish) documented in this encounterSUMNC Work Phone: [phone]) 686-740809-29-2022 Miscellaneous Notes* Telephone Encounter - Verónica Codey - 07/09/2022 12:24 PM EDT No Show [...] Yes Is this the Third or Fourth "No Show"? No Verónica Alegre July 09, 2022 12:24 PM documented in this encounter[facility] note Future Appointments Appointment Date:11/16/2022 02:00:00 PM Scheduled Provider:SUNIL GRAHAM MD Location: [facility] Appointment Type: OV OB Routine Follow Up [facility] Evaluation + Plan note Future Appointments Appointment Date:12/14/2022 02:15:00 PM Scheduled Provider:SUNIL GRAHAM MD Location:[facility] Appointment Type: OV OB Routine Follow Up Appointment Date:12/23/2022 08:30:00 AM Scheduled Provider: Location:[facility] Appointment Type:US OB > 14 wks Future Scheduled Tests Radiology* US OB Limited/Transvaginal 01/11/23 * US OB > 14 weeks 12/23/22 [facility] Evaluation + Plan note Future Appointments Appointment Date:01/11/2023 03:30:00 PM Scheduled Provider:SUNIL GRAHAM MD Location:[facility] Appointment Type: OV OB Routine [...] Antibody 12/14/22 Radiology* US OB Limited/Transvaginal 01/11/23 [facility] aluation + Plan note Future Appointments Appointment Date:01/25/2023 01:00:00 PM Scheduled Provider:SUNIL GRAHAM MD Location:[facility] Appointment Type:[facility] OB Routine Follow Up Future Scheduled Tests [...] Antibody 12/14/22 Radiology* US OB Limited/Transvaginal 01/11/23 [facility] Evaluation + Plan note Future Appointments Appointment Date:02/01/2023 01:15:00 PM Scheduled Provider:SUNIL GRAHAM MD Location:[facility] Appointment Type: OV OB Routine Follow Up Appointment Date:03/15/2023 02:00:00 PM Scheduled Provider: Franny:[facility] Appointment Type:US OB > 14 wks Future [...] * US OB > 14 weeks 03/15/23 [facility] Evaluation + Plan note Future Appointments Appointment Date:03/09/2023 01:45:00 PM Scheduled Provider:LONG DICKERSON MD Location:[facility] Appointment Type: OV OB Routine Follow Up Appointment Date:03/15/2023 02:00:00 PM Scheduled Provider: Location:[facility] Appointment Type:US OB > 14 wks Future [...] * US OB > 14 weeks 03/15/23 [facility] Evaluation + Plan note Future Appointments Appointment Date:03/15/2023 02:00:00 PM Scheduled Provider: Location:[facility] Appointment Type:US OB > 14 wks Appointment Date:03/16/2023 02:30:00 PM Scheduled Provider:LONG DICKERSON MD Location:[facility] Appointment Type: OV OB Routine Follow Up Diagnostic Tests Pending [...] * US OB > 14 weeks 03/15/23 [facility] Evaluation + Plan note Future Appointments Appointment Date:03/15/2023 02:00:00 PM Scheduled Provider: Location:[facility] Appointment Type:US OB > 14 wks Appointment Date:03/16/2023 02:30:00 PM Scheduled Provider:LONG DICKERSON MD Location:[facility] Appointment Type:[facility] OB Routine Follow Up Future Scheduled Tests [...] * US OB > 14 weeks 03/15/23 [facility] Evaluation + Plan note Future Appointments Appointment Date:03/16/2023 02:30:00 PM Scheduled Provider:LONG DICKERSON MD Location:[facility] Appointment Type: OV OB Routine [...] Urine 01/25/23 Radiology* US OB Limited/Transvaginal 01/11/23 [facility] Evaluation + Plan note Future Appointments Appointment Date:07/28/2024 08:30:00 AM Scheduled Provider:KIRSTEN CISNEROS Location:[facility] Appointment Type: Wellness Annual Future Scheduled Tests Laboratory* Glucose Level 07/20/23 * Lipid Profile 07/20/23 [facility] Evaluation + Plan note Future Appointments Appointment Date:08/25/2024 07:30:00 AM Scheduled Provider:KIRSTEN CISNEROS Location:[facility] Appointment Type: OV Future Scheduled Tests Radiology* CT Head or Brain w/o Contrast 07/28/24 * CT Spine Cervical w/o Contrast 07/28/24 [facility] Evaluation note* Diagnosis Threatened miscarriage in early - Primary Threatened , unspecified as to episode of care documented in this encounter [facility] Work Phone: Evaluation note* Diagnosis Onset Date Resolution Status Acute lumbar myofascial strain acute Blunt abdominal trauma acute Cervical strain, acute acute Chest wall contusion acute Concussion without loss of consciousness acute Lumbar radiculopathy, acute acute [facility] Work Phone: Evaluation note* Diagnosis Encounter for supervision of normal first in first trimester- Primary Supervision of normal first [facility] Diagnosis with uncertain dates in first trimester- Primary documented in this encounter [facility]* Diagnosis Encounter for supervision of normal first in second trimester- Primary Supervision of normal first Need for influenza vaccination Need for prophylactic vaccination and inoculation against influenza 15 weeks gestation of state, incidental documented in this encounter [facility] Narrative No data available for this section [facility] Discharge instructions Additional Instructions Follow-up with your 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 Return if you have worsening symptoms or worsening abdominal pain/fever.[facility] Work Phone: Hospital Discharge instructions No data available for this section [facility] Progress note No data available for this section [facility] Reason for referral (narrative)* Diagnostic Procedure Only (Routine) - Pending Review Specialty Diagnoses / Procedures Referred By Contac t Referred To Contact [facility] Diagnoses Encounter for supervision of normal first in first trimester Procedures NUCHAL TRANSLUCENCY WHI US NUCHAL TRANSLUCENCY GESTATION Braulio Hollingsworth MD [address] [address] [facility] [place][Note 2] [address] [place] [address] Referral ID Status Reason Start Date Expiration Date Visits Requested Visits Authorized [id number] Pending Review Auto-Generat ed Referral 08/19/2022 08/19/2023 1 1 [facility] for referral (narrative)* Diagnostic Procedure Only (Routine) - Authorized Specialty Diagnoses / Procedures Referred By Contac t Referred To Contact [facility] Diagnoses Encounter for supervision of normal first in second trimester Procedures OBSTETRIC ULTRASOUND WHI US PREG UTERUS AFTER 1ST TRIMEST GESTATION Gretel Quintana MD [address] [address] [facility] [place][Note 2] [address] [place] [address] Referral ID Status Reason Start Date Expiration Date Visits Requested Visits Authorized [id number] Authorized Auto-Generat ed Referral 10/14/2022 10/14/2023 1 1 [facility] Summary Purpose Family History No Family [...] Will No August 09 2:12pm Power of Mononitrotoluene Operator No August 09, 2022 2:12pm Advance Directive Response Recorded Date/ Time Advance Directives No June 7:50am Living Will No August 09 1:12pm Power of Mononitrotoluene Operator No August 09, 2022 1:12pm Chief Complaint [...] section and content) DATE CREATED AUTHOR 09/19/2018 [facility] DATE CREATED AUTHOR AUTHOR'S ORGANIZ ATION 12/26/2018 [facility] DATE CREATED AUTHOR AUTHOR'S ORGANIZ ATION 04/29/2019 [facility] DATE CREATED AUTHOR AUTHOR'S ORGANIZ ATION 12/25/2019 [facility] DATE CREATED AUTHOR AUTHOR'S ORGANIZ ATION 03/17/2021 [facility] DATE CREATED AUTHOR AUTHOR'S ORGANIZ ATION 08/29/2021 [facility] DATE CREATED AUTHOR AUTHOR'S ORGANIZ ATION 08/05/2022 [facility] DATE CREATED AUTHOR AUTHOR'S ORGANIZ ATION 11/13/2022 [facility] DATE CREATED AUTHOR AUTHOR'S ORGANIZ ATION 11/14/2022 [facility] DATE CREATED AUTHOR AUTHOR'S ORGANIZ ATION 02/20/2024 [facility] DATE CREATED AUTHOR AUTHOR'S ORGANIZ ATION 08/20/2024 [facility] DATE CREATED AUTHOR AUTHOR'S ORGANIZ ATION 06/27/2025 [facility] DATE CREATED AUTHOR AUTHOR'S ORGANIZ ATION 07/30/2025 [facility] Source Comments (unrecognize d section and content) In the event this informatio n is protected by the Federal Confidentiality of Alcohol and Drug Abuse Patient Records regulations: The Federal rules restrict any use of the information to criminally investigate or prosecute any alcohol or drug abuse patient.[facility] HospitalIn the event this information is protected by the Federal Confidentiality of Alcohol and Drug Abuse Patient Records regulations: The Federal rules restrict any use of the information to criminally investigate or prosecute any alcohol or drug abuse patient.[facility] Hospital[facility] the event this information is protected by the Federal Confidentiality of Alcohol and Drug Abuse Patient Records regulations: The Federal rules restrict any use of the information to criminally investigate or prosecute any alcohol or drug abuse patient.[facility] Hospital[facility] the event this information is protected by the Federal Confidentiality of Alcohol and Drug Abuse Patient Records regulations: The Federal rules restrict any use of the information to criminally investigate or prosecute any alcohol or drug abuse patient.[facility] HospitalIn the event this information is protected by the Federal Confidentiality of Alcohol and Drug Abuse Patient Records regulations: The Federal rules restrict any use of the information to criminally investigate or prosecute any alcohol or drug abuse patient.[facility] HospitalIn the event this information is protected by the Federal Confidentiality of Alcohol and Drug Abuse Patient Records regulations: The Federal rules restrict any use of the information to criminally investigate or prosecute any alcohol or drug abuse patient.[facility] HospitalIn the event this information is protected by the Federal Confidentiality of Alcohol and Drug Abuse Patient Records regulations: The Federal rules restrict any use of the information to criminally investigate or prosecute any alcohol or drug abuse patient.[facility] Reason for Visit (unrecogniz ed section [...] hours. 1135 (Not Given - Pr ovider: Jesse Magana RN - Reason: Patient/family refused - [...] Member Role: Primary Care Physician Address: Address: [address] [place] [phone] [place] Care Team Related Persons Name: RASHMI MTZ Address: Home [address] [phone] [place] Name: MARGARITO MTZ Address: [address] [place], [place] [phone] [place] Name: MARGARITO MTZ Address: Home [address] [place] [phone] [place] Name: MARGARITO MTZ Address: Home [address] [place], [place] [phone] [place] Name: MARGARITO MTZ Address: [address] [phone] [place] Name: ELVIA MTZRI Address: [address] [phone] [place] Name: ELVIA MTZRI Address: Home [address] [place] [phone] [place] Name: ELVIA MTZRI Address: Home [address] [place] [phone] [place] Name: ELVIA MTZRI Address: Home [address] [place] [phone] Care Team Personnel Name: MAXWELL GOMEZ MD Member Role: Primary Care Physician Address: Address: [address] [place], [place] [address] Care Team Related Persons Name: RASHMI MTZ Address: Home [address] [place] [phone] [place] Name: MARGARITO MTZ Address: Home [address] [place] [phone] [place] Name: ELVIA MTZRI Address: Home [address] [place] [phone] [place] Name: ELVIA MTZRI Address: Home [address] [place] [phone] [place] Name: ELVIA MTZRI Address: Home [address] [place] [phone] [place] Name: ELVIA MTZRI Address: Home [address] [place] [phone] [place] Name: ELVIA MTZRI Address: Home [address] [place] [phone] [place] Name: MARGARITO MTZ Address: Home [address] [place] [phone] [place] Name: ELVIA MTZRI Address: Home [address] [place] [phone] [place] Patient Care team informatio n (unrecognized section and content) Care Team Personnel Name: MAXWELL GOMEZ MD Member Role: Primary Care Physician Address: Address: [address] [place] [phone] [place] Care Team Related Persons Name: RASHMI MTZ Address: Home [address] [place] [phone] [place] Name: MARGARITO MTZ Address: [address] [place], [place] [phone] [place] Name: MARGARITO MTZ Address: [address] [place], [place] [phone] [place] Name: MARGARITO MTZ Address: [address] [place], [place] [phone] [place] Name: MARGARITO MTZ Address: [address] [place], [place] [phone] [place] Name: MARGARITO MTZ Address: [address] [place], [place] [phone] [place] Name: MARGARITO MTZ Address: [address] [place], [place] [phone] [place] Name: MARGARITO MTZ Address: [address] [place], [place] [phone] [place] Name: MARGARITO MTZ Address: Home [address] [place] [phone] [place] Care Team Personnel Name: MAXWELL GOMEZ MD Member Role: Primary Care Physician Address: Address: [address] [place], [place] [phone] [place] Care Team Related Persons Name: RASHMI MTZ Address: Home [address] [phone] [place] Name: MARGARITO MTZ Address: Home [address] [place] [phone] [place] Name: MARGARITO MTZ Address: [address] [place], [place] [phone] [place] Name: MARGARITO MTZ Address: Home [address] [place] [phone] [place] Name: MARGARITO MTZ Address: [address] [place], [place] [phone] [place] Name: MARGARITO MTZ Address: [address] [place], [place] [phone] [place] Name: MARGARITO MTZ Address: [address] [place], [place] [phone] [place] Name: MARGARITO MTZ Address: [address] [place], [place] [phone] [place] Name: MARGARITO MTZ Address: [address] [place], [place] [phone] [place] Care Team Personnel Name: SUNIL GRAHAM MD 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 Member Role: Primary Care Physician Address: Address: [address] [place] [phone] Care Team Related Persons Name: RASHMI MTZ Address: Home [address] [phone] [place] Name: MARGARITO MTZ Address: [address] [place], [place] [phone] [place] Name: MARGARITO MTZ Address: [address] [place], [place] [phone] [place] Name: MARGARITO MTZ Address: [address] [place], [place] [phone] [place] Name: MARGARITO MTZ Address: [address] [place], [place] [phone] [place] Name: MARGARITO MTZ Address: Home [address] [place] [phone] [place] Name: MARGARITO MTZ Address: Home [address] [place] [phone] [place] Name: MARGARITO MTZ Address: [address] [place], [place] [phone] [place] Name: MARGARITO MTZ Address: [address] [place], [place] [phone] [place] Care Team Personnel Name: SUNIL GRAHAM MD 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 Member Role: Primary Care Physician Address: Address: [address] [place] [phone] Care Team Related Persons Name: RASHMI MTZ Address: Home [address] [phone] [place] Name: MARGARITO MTZ Address: [address] [place], [place] [phone] [place] Name: MARGARITO MTZ Address: [address] [place], [place] [phone] [place] Name: MARGARITO MTZ Address: [address] [place], [place] [phone] [place] Name: MARGARITO MTZ Address: [address] [place], [place] [phone] [place] Name: MARGARITO MTZ Address: [address] [place], [place] [phone] [place] Name: BIBI, MARGARITO Address: [address] [place], [place] [phone] [place] Name: MARGARITO MTZ Address: [address] [place], [place] [phone] [place] Name: EVLIA MTZRI Address: [address] [place], [place] [phone] [place] Care Team Personnel Name: MARTINEZ NÚÑEZ MD 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 Member Role: Primary Care Physician Address: Address: [address] [place] [phone] Care Team Related Persons Name: RASHMI MTZ Address: Home [address] [phone] [place] Name: MARGARITO MTZ Address: [address] [place], [place] [phone] [place] Name: MARGARITO MTZ Address: [address] [place], [place] [phone] [place] Name: MARGARITO MTZ Address: [address] [place], [place] [phone] [place] Name: MARGARITO MTZ Address: [address] [place], [place] [phone] [place] Name: MARGARITO MTZ Address: [address] [place], [place] [phone] [place] Name: MARGARITO MTZ Address: [address] [place], [place] [phone] [place] Name: MARGARITO MTZ Address: [address] [place], [place] [phone] [place] Name: MARGARITO MTZ Address: [address] [place], [place] [phone] [place] Care Team Personnel Name: MARTINEZ NÚÑEZ MD 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 Member Role: Primary Care Physician Address: Address: [address] [place] [phone] Care Team Related Persons Name: RASHMI MTZ Address: Home [address] [phone] [place] Name: MARGARITO MTZ Address: [address] [place], [place] [phone] [place] Name: MARGARITO MTZ Address: [address] [place], [place] [phone] [place] Name: MARGARITO MTZ Address: [address] [place], [place] [phone] [place] Name: ELVIA MTZRI Address: [address] [place], [place] [phone] [place] Name: ELVIA MTZRI Address: [address] [place], [place] [phone] [place] Name: ELVIA MTZRI Address: [address] [place], [place] [phone] [place] Name: ELVIA MTZRI Address: [address] [place], [place] [phone] [place] Name: ELVIA MTZRI Address: [address] [place], [place] [phone] [place] Care Team Personnel Name: MARTINEZ NÚÑEZ MD 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 Member Role: Primary Care Physician Address: Address: [address] [place] [address] Care Team Related Persons Name: RASHMI MTZ Address: Home [address] [phone] [place] Name: MARGARITO MTZ Address: [address] [place], [place] [phone] [place] Name: ELVIA MTZRI Address: [address] [place], [place] [phone] [place] Name: MARGARITO MTZ Address: [address] [place], [place] [phone] [place] Name: ELVIA MTZRI Address: [address] [place], [place] [phone] [place] Name: MARGARITO MTZ Address: [address] [place], [place] [phone] [place] Name: MARGARITO MTZ Address: [address] [place], [place] [phone] [place] Name: ELVIA MTZRI Address: [address] [place], [place] [phone] [place] Name: MARGARITO MTZ Address: [address] [place], [place] [phone] [place] Care Team Personnel Name: MARTINEZ NÚÑEZ MD 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 Member Role: Primary Care Physician Address: Address: [address] [place] [address] Care Team Related Persons Name: RASHMI MTZ Address: Home [address] [phone] [place] Name: MARGARITO MTZ Address: [address] [place], [place] [phone] [place] Name: MARGARITO MTZ Address: [address] [place], [place] [phone] [place] Name: MARGARITO MTZ Address: [address] [place], [place] [phone] [place] Name: MARGARITO MTZ Address: [address] [place], [place] [phone] [place] Name: MARGARITO MTZ Address: Home [address] [place] [phone] [place] Name: MARGARITO MTZ Address: Home [address] [place] [phone] [place] Name: MARGARITO MTZ Address: Home [address] [place] [address] [phone] [place] Name: MARGARITO MTZ Address: Home [address] [place] [phone] [place] Care Team Personnel Name: MARTINEZ NÚÑEZ MD 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 Member Role: Primary Care Physician Address: Address: [address] [place] [address] [facility] [address] [place] Care Team Related Persons Name: RASHMI MTZ Address: Home [address] [phone] [place] Name: MARGARITO MTZ Address: Home [address] [place] [phone] [place] Name: MARGARITO MTZ Address: Home [address] [place] [phone] [place] Name: MARGARITO MTZ Address: [address] [place], [place] [phone] [place] Name: MARGARITO MTZ Address: [address] [place], [place] [phone] [place] Name: MARGARITO MTZ Address: [address] [place], [place] [phone] [place] Name: MARGARITO MTZ Address: Home [address] [place] [phone] [place] Name: MARGARITO MTZ Address: Home [address] [place] [phone] [place] Name: MARGARITO MTZ Address: [address] [place], [place] [phone] [place] Care Team Personnel Name: MARTINEZ NÚÑEZ MD 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 Member Role: Primary Care Physician Address: Address: [address] [place] [phone]- Care Team Related Persons Name: OLIVEIRAAMANDA JESSE Address: Home [address] [place], [place] [phone] [place] Address: Temporary [address] [place], [place] [phone] Name: RASHMI MTZ Address: Home [address] [phone] [place] Name: MARGARITO MTZ Address: [address] [place], [place] [phone] [place] Name: MARGARITO MTZ Address: [address] [place], [place] [phone] [place] Name: MARGARITO MTZ Address: [address] [place], [place] [phone] [place] Name: MARGARITO MTZ Address: [address] [place], [place] [phone] [place] Name: MARGARITO MTZ Address: [address] [place], [place] [phone] [place] Name: MARGARITO MTZ Address: [address] [place], [place] [phone] [place] Name: MARGARITO MTZ Address: [address] [place], [place] [phone] [place] Name: MARGARITO MTZ Address: [address] [place], [place] [phone] [place] Care Team Personnel Name: MARTINEZ NÚÑEZ MD 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 Member Role: Primary Care Physician Address: Address: [address] [place] [phone]- Care Team Related Persons Name: FOREST OLIVEIRAIAN Address: Home [address] [place], [place] [phone] Address: Temporary [address] [place], [place] [phone] Care Team Personnel Name: KIRSTEN CISNEROS Position: P4 Advanced Java Support Engineer Member Role: Primary Care Physician Address: Address: [address] [place], [place] [address] Care Team Related Persons Name: LUIS DANIEL OLIVEIRA Address: Home [address] [place], [place] [phone] Address: Temporary [address] [place], [place] [phone] Care Team Personnel Name: KIRSTEN CISNEROS JOEY Position: P4 Advanced Java Support Engineer Member Role: Primary Care Physician Address: Address: [address] [place] [phone] [place] Care Team Related Persons Name: LUIS DANIEL OLIVEIRA Address: Home [address] [place], [place] [phone] Address: Temporary [address] [place], [place] [phone] FOR RECORDS PERTAINING TO PATIENTS WHO ARE [...] BE BASED ON THE PRIMARY CLINICAL RECORDS. [employer] provides no warranty or guarantee of the accuracy or completeness of information in this document.
== END | disposition home or self-care (01) ==
PROVIDERS: Referring Provider Advanced Practice Midwife; Visit Provider Advanced Practice Midwife
DX: O99.891 Other specified diseases and conditions complicating pregnancy (principal); O26.899 Other specified pregnancy related conditions, unspecified trimester; R30.0 Dysuria; M54.9 Dorsalgia, unspecified; Z3A.00 Weeks of gestation of pregnancy not specified
CPT/HCPCS: 87086; 87088

== ENCOUNTER → 2025-08-01 | Outpatient (CLI) | payer BC, SELFPAY ==
[2025-08-01 16:49] LABS: Hematocrit 34.8 % (37-47); Hemoglobin 12.1 g/dL (12.0-15.0); Immature Granulocytes Count 0.040 X10^3/uL (0.0-0.0); Mean Corp Hgb Conc 34.8 g/dL (32-36); Mean Corpuscular Volume 93.3 fL (81-99); Mean Platelet Vol. 9.9 fl (6.2-12.0); NRBC Flagged by Analyzer 0 % (0-5); Platelet Count 191 K/mm3 (150-450); RBC Distribution Width CV 14.0 % (11.6-14.6); RBC Distribution Width SD 47.3 fl (35.1-43.9); Red Blood Count 3.73 M/mm3 (4.2-5.4); White Blood Count 9.8 K/mm3 (4.4-11.0)
[2025-08-01 17:22] LABS: AST(SGOT) 18 U/L (<=31); Alanine Aminotransfer ALT/SGPT 14 U/L (<=34); Albumin, Serum 4.1 g/dL (3.5-5.0); Alkaline Phosphatase 74 U/L (35-104); Anion Gap 13 (5-15); BUN 5 mg/dL (4-19); BUN/Creat Ratio 9.0 RATIO (10-20); Calcium,Total 9.1 mg/dL (7.6-11.0); Carbon Dioxide 22.8 mmol/L (21.0-32.0); Chloride 104 mmol/L (98-108); Globulin 2.7 g/dL (2.2-4.2); Glucose 105 mg/dL (70-99); Potassium 3.9 mmol/L (3.3-5.1)
== END | disposition home or self-care (01) ==
PROVIDERS: Visit Provider Obstetrics & Gynecology
DX: M54.9 Dorsalgia, unspecified (principal)
CPT/HCPCS: 36415; 80053; 85025

== ENCOUNTER → 2025-08-15 | Outpatient (CLI) | payer BC, SELFPAY ==
--- NOTE | 2025-08-15 11:38 | US_ITS ---
PROCEDURE: OB LIMITED WITH BIOMETRICS 08/15/2025 REASON FOR EXAM: GROWTH TECHNIQUE: Procedure Code: USOBGROWTH Modality: US Procedure: OB LIMITED WITH BIOMETRICS FINDINGS Transverse right position with cardiac activity of 144 bpm. Maximum vertical pocket of 6 cm and DEMOND of 20.1 cm. Placenta is anterior position with grade 1. Cervical length is 3.9 cm and is closed. BPD of 6.9, OFD of the 9.2, HC of 26.1, AC of 23.2, and FL of 4.8 cm corresponding with average gestational age of 27 weeks and 4 days with KIMO of 11/10/2025. Estimated weight of 1027 (19 percentile). US/OB Limited With Biometrics IMPRESSION: FL measurement is 3% and estimated weight is 19% for age. Otherwise unre markable biometrics. Average gestational age of 27 weeks and 4 days with KIMO of 11/10/2025. Reading Location: [id number]
== END | disposition home or self-care (01) ==
LOC: US 11:37
PROVIDERS: Referring Provider Obstetrics & Gynecology; Visit Provider Obstetrics & Gynecology
DX: O99.212 Obesity complicating pregnancy, second trimester (principal); Z3A.00 Weeks of gestation of pregnancy not specified
CPT/HCPCS: 76816

== ENCOUNTER → 2025-08-21 | Outpatient (CLI) | payer BC, SELFPAY ==
[2025-08-21 16:54] LABS: Hematocrit 33.6 % (37-47); Hemoglobin 11.6 g/dL (12.0-15.0); Immature Granulocytes Count 0.080 X10^3/uL (0.0-0.0); Mean Corp Hgb Conc 34.5 g/dL (32-36); Mean Corpuscular Volume 94.1 fL (81-99); Mean Platelet Vol. 9.9 fl (6.2-12.0); NRBC Flagged by Analyzer 0 % (0-5); Platelet Count 184 K/mm3 (150-450); RBC Distribution Width CV 13.7 % (11.6-14.6); RBC Distribution Width SD 46.3 fl (35.1-43.9); Red Blood Count 3.57 M/mm3 (4.2-5.4); White Blood Count 9.3 K/mm3 (4.4-11.0)
[2025-08-21 17:30] LABS: Glucose Challenge Gest 1H 50g 101 mg/dL (70-140); HIV Nonreactive (Nonreactive); Syphilis Antibodies Nonreactive (Nonreactive)
[2025-08-21 18:10] LABS: AST(SGOT) 19 U/L (<=31); Alanine Aminotransfer ALT/SGPT 12 U/L (<=34); Albumin, Serum 3.8 g/dL (3.5-5.0); Alkaline Phosphatase 73 U/L (35-104); Anion Gap 14 (5-15); BUN 8 mg/dL (4-19); BUN/Creat Ratio 14.1 RATIO (10-20); Calcium,Total 9.2 mg/dL (7.6-11.0); Carbon Dioxide 18.2 mmol/L (21.0-32.0); Chloride 103 mmol/L (98-108); Globulin 2.6 g/dL (2.2-4.2); Glucose 99 mg/dL (70-99); Potassium 3.3 mmol/L (3.3-5.1)
== END | disposition home or self-care (01) ==
PROVIDERS: Nurse Practitioner Women's Health; Visit Provider Obstetrics & Gynecology
DX: O09.92 Supervision of high risk pregnancy, unspecified, second trimester (principal); Z13.1 Encounter for screening for diabetes mellitus; R10.20 Pelvic and perineal pain unspecified side; R03.0 Elevated blood-pressure reading, without diagnosis of hypertension; Z3A.00 Weeks of gestation of pregnancy not specified
CPT/HCPCS: 36415; 80053; 82950; 85025; 86703; 86780; 87086; 87088

== ENCOUNTER → 2025-09-03 | Outpatient (CLI) | payer BC, SELFPAY | END | disposition home or self-care (01) | LOC: LABSPEC 12:14 | PROVIDERS: Visit Provider Obstetrics & Gynecology | DX: O09.93 Supervision of high risk pregnancy, unspecified, third trimester (principal); Z3A.00 Weeks of gestation of pregnancy not specified | CPT/HCPCS: 87086; 87088 ==

== ENCOUNTER → 2025-09-17 | Outpatient (CLI) | payer BC, SELFPAY ==
--- NOTE | 2025-09-17 13:05 | US_ITS ---
PROCEDURE: OB LIMITED WITH BIOMETRICS 09/17/2025 REASON FOR EXAM: GROWTH TECHNIQUE: Procedure Code: USOBGROWTH Modality: US Procedure: OB LIMITED WITH BIOMETRICS COMPARISON: 08/15/2025 FINDINGS Cephalic position with cardiac activity of 144 bpm. Maximum vertical pocket of 5.4 cm and DEMOND of 13.6 cm. Placenta is anterior position with grade 2. BPD of 7.8, OFD of the 10.3, HC of 29, AC of 28.1, and FL of 5.8 cm corresponding with average gestational age of 31 weeks and 4 days with KIMO of 11/15/2025. Of note, FL is at 3%. Estimated weight of 1787g (17 percentile). US/OB Limited With Biometrics IMPRESSION: Again seen is FL of 3% and estimated weight of 17%. sonographic ag e of 31 weeks and 4 days with KIMO of 11/15/2025. Reading Location: [id number]
== END | disposition home or self-care (01) ==
LOC: OPUS 12:23
PROVIDERS: Referring Provider Obstetrics & Gynecology; Visit Provider Obstetrics & Gynecology
DX: O09.92 Supervision of high risk pregnancy, unspecified, second trimester (principal); R74.8 Abnormal levels of other serum enzymes; Z3A.00 Weeks of gestation of pregnancy not specified
CPT/HCPCS: 76816

== ENCOUNTER → 2025-09-19 | Outpatient (CLI) | payer BC, SELFPAY ==
--- OUTSIDE RECORDS SUMMARY | 2025-09-19 16:36 | XMS RPT_ITS | CCD ---
Author Organization [facility] Care Team Providers Care Document Specialist Name Role Phone Lynsey [phone], Alex [phone] C onsulting Unavailable KWON DO, KAY K [...] MARTINEZ NÚÑEZ MD Primary Care Physician MAST COATING MACHINE OPERATOR HELPER-CORPORATE LAW ASSISTANT, KIRSTEN Primary Care Physician WILTON AN, MARTINEZ Bautista Primary Care Unavailable LIVIER AN, SUNIL Admitting Unavailable JAYLA AN, LONG Attending Unavailable WILTON AN, MARTINEZ Bautista Attending Unavailable WILTON AN, MARTINEZ Bautista Primary Care Unavailable WILTON AN, MARTINEZ Bautista Attending Unavailable WILTON AN, MARTINEZ Bautista Primary Care Unavailable WILTON AN, MARTINEZ Bautista Attending Unavailable WILTON AN, MARTINEZ Bautista Primary Care Unavailable [facility], OSMAN Attending Unavailhieu NÚÑEZ MD, MARTINEZ Bautista Primary Care Unavailable MAST COATING MACHINE OPERATOR HELPER-CORPORATE LAW ASSISTANT, KIRSTEN Attending Unavailabl e MAST COATING MACHINE OPERATOR HELPER-CORPORATE LAW ASSISTANT, KIRSTEN Primary Care Unavailabl e LIVIER AN, SUNIL Attending Unavailable WILTON AN, MARTINEZ Bautista Primary Care Unavailable JAYLA AN, LONG Attending Unavailable WILTON AN, MARTINEZ Bautista Primary Care Unavailable JAYLA AN, LONG Attending Unavailable WILTON AN, MARTINEZ Bautista Primary Care Unavailable MAST COATING MACHINE OPERATOR HELPER-CORPORATE LAW ASSISTANT, KIRSTEN Attending Unavailabl e MAST COATING MACHINE OPERATOR HELPER-CORPORATE LAW ASSISTANT, KIRSTEN Primary Care Unavailabl e RAMA AVALOS [...] Mcdonough Referring Unavailable Damari Mcdonough Attending Unavailable [place] BUSINESS DEVELOPMENT INTERN, Remedios Attending Unavailable [place] BUSINESS DEVELOPMENT INTERN, Remedios Referring Unavailable Care Physician, No Primary Primary Care Unava ilable Care Physician, No Primary Primary Care Unava ilable [place] BUSINESS DEVELOPMENT INTERN, Remedios Referring Unavailable Jose BUSINESS DEVELOPMENT INTERN, Remedios Attending Unavailable Care Physician, No Primary Primary Care Unava ilable Damari Mcdonough Referring Unavailable Damari Mcdonough Attending Unavailable Care Physician, No Primary Referring Unava ilable Care Physician, No Primary Primary Care Unava ilable Geraldine Bradford Attending Unavailable Care Physician, No Primary Referring Unava ilable Care Physician, No Primary Primary Care Unava ilable Keven Alvarez Attending Unavailable Rama Stuart Attending Unavailabl e Care Physician, No Primary Primary Care Unava ilable Care Physician, No Primary Referring Unava ilable Care Physician, No Primary Primary Care Unava ilable Mendez Gardner Attending Unavailable Care Physician, No Primary Primary Care Unava ilable Lupe Mead Referring Unavailable Lupe Mead Attending Unavailable Care Physician, No Primary Primary Care Unava ilable Damari Mcdonough Attending Unavailable Care Physician, No Primary Primary Care Unava ilable Marcanthony, Geraldine Referring Unavailable Marcanthony, Geraldine Attending Unavailable Care Physician, No Primary Primary Care Unava ilable Marcanthony, Geraldine Attending Unavailable Marcanthony, Geraldine Referring Unavailable Marcanthony, Geraldine Attending Unavailable Care Physician, No Primary Primary Care Unava ilable Jose BUSINESS DEVELOPMENT INTERN, Remedios Attending Unavailable Care Physician, No Primary Primary Care Unava ilable Care Physician, No Primary Referring Unava ilable Care Physician, No Primary Primary Care Unava ilable Care Physician, No Primary Referring Unava ilable [place] BUSINESS DEVELOPMENT INTERN, Remedios Attending Unavailable Care Physician, No Primary Primary Care Unava ilable Care Physician, No Primary Referring Unava ilable Damari Mcdonough Attending Unavailable Rama Stuart Referring Unavailabl e Rama Stuart Attending Unavailabl e Care Physician, No Primary Primary Care Unava ilable Antonio, Keven Consulting Unavailable [place] BUSINESS DEVELOPMENT INTERN, Remedios Attending Unavailable Care Physician, No Primary Primary Care Unava ilable Care Physician, No Primary Primary Care Unava ilable Jose BUSINESS DEVELOPMENT INTERN, Remedios Referring Unavailable [place] BUSINESS DEVELOPMENT INTERN, Remedios Attending Unavailable Care Physician, No Primary Referring Unava ilable Rama Stuart Attending Unavailabl e Care Physician, No Primary Primary Care Unava ilable Care Physician, No Primary Primary Care Unava ilable Care Physician, No Primary Referring Unava ilable Jose BUSINESS DEVELOPMENT INTERN, Remedios Attending Unavailable Care Physician, No Primary [...] Primary Primary Care Unava ilable Lupe Mead Attending Unavailable Lupe Mead Consulting Unavailable Lupe Mead Referring Unavailable Marcanthony, Geraldine Referring Unavailable Care Physician, No Primary Primary Care Unava ilable Geraldine Bradford Attending Unavailable Allergies Allergy Classification Reported Allergen(s) Allergy Type Date of Onset Reaction(s) Facility (1 source) Escitalopram Drug Allergy [facility] Repository (11 sources) Citalopram; Translations: [CITALOPRAM HYDROBROMIDE] Drug Allergy 4 Other: See Comments [facility] Work Phone: (11 sources) Escitalopram; Translations: [ESCITALOPRAM] Drug Allergy 1 Other: See Comments [facility] Work Phone: (15 sources) Citalopram; Translations: [citalopram] Drug Allergy Suicidal ideation [facility] (1 source) Citalopram Drug Allergy 5 [facility] Repository (1 source) Escitalopram Drug Allergy 5 [facility] Repository Medications Current Medications Medication Drug Class(es) Dates Sig (Normalized) Sig (Original) acetaminophen 500 mg oral tablet (1 source) Start: 03-31-2023 End: 04-28-2023 Tylenol Extra Strength 500 mg oral tablet Dose : 500 mg = 1 tab(s), Oral, q4h, X 14 day(s), # 30 tab(s), 1 Refill(s), 04/28/23 11:38:00 EDT, Pharmacy: [facility]/pharmacy #[id number], 155, cm, 03/30/23 7:49:00 EDT, Height Start Date: 03/31/23 Stop Date: 04/28/23 Status: Ordered benzocaine 200 mg/ml topical spray (1 source) Standardized Chemical Allergen Start: 03-31-2023 End: 04-14-2023 apply 1 dose topically four times daily Americaine 20% topical spray Dose = 1 herlinda, Topical, QID, X 14 day(s), # 1 EA, 0 Refill(s), Pharmacy: [facility]/pharmacy #[id number], 155, cm, 03/30/23 7:49:00 EDT, [...] Take 1 tablet by brandee once daily. cyclobenzaprine hydrochloride 5 mg oral tablet (1 source) Muscle Relaxant Start: 02-18-2024 End: 02-25-2024 cyclobenzaprine 5 mg oral tablet Dose : 5 mg = 1 tab(s), Oral, TID, X 7 day(s), # 21 tab(s), 0 Refill(s), 02/25/24 8:31:00 AM EDT, Pharmacy: [facility] #[id number], 155, cm, 02/18/24 7:59:00 EDT, Height, kg, 02/18/24 7:59:00 EDT, Dosing Weight Start Date: 02/18/24 Stop Date: 02/25/24 Status: Ordered diclofenac sodium 75 mg delayed release oral tablet (1 source) Nonsteroidal Anti-inflammatory Drug Start: 02-18-2024 End: 03-03-2024 diclofenac sodium 75 mg oral delayed release tablet Dose : 75 mg = 1 tab(s), Oral, BID, # 28 tab(s), 0 Refill(s), Pharmacy: [facility] #[id number], 155, cm, 02/18/24 7:59:00 [...] tab(s), 0 Refill(s), 04/14/23 11:38:00 EDT, Pharmacy: [facility]/pharmacy #[id number], 155, cm, 03/30/23 7:49:00 EDT, Height Start Date: 03/31/23 Stop Date: 04/14/23 Status: Ordered magnesium oxide 400 mg oral tablet (3 sources) Start: 01-11-2023 End: 02-10-2023 magnesium oxide 400 mg oral tablet Dose : 400 mg = 1 tab(s), Oral, qHS, X 30 day(s), # 30 tab(s), 0 Refill(s), 02/10/23 15:17:00 EDT, Pharmacy: [facility]/pharmacy #[id number], 155, cm, 01/11/23 15:08:00 EDT, [...] tylenol, # 12 tab(s), 0 Refill(s), Pharmacy: [facility]/pharmacy #[id number], 155, cm, 01/11/23 15:08:00 EDT, [...] on above: Take 1 capsule by mo [facility] daily with breakfast. AD oral tablet (10 sources) Start: 01-26-2023 take 1 tablet by mouth once daily AD oral tablet Dose = 1 tab(s), Oral, Daily, # 30 tab(s), 0 Refill(s) Start Date: 01/26/23 Status: Ordered Lsplzjle-Mwv-Pe-Fa () 1 mg Tablet (2 sources) Start: 08-09-2022 take 1 tablet by mouth once daily Nhkynygc-Bkw-Dx-Fa () 1 mg Tablet Active 1 TABLET PO DAILY August 08, 2022 11:00pm Start: 08-09-2022 take 1 tablet by brandee th once daily Zrweillx-Ant-Gf-Fa () 1 mg Tablet Active 1 TABLET [...] qDay, # 30 tab(s), 11 Refill(s), Pharmacy: [facility]/pharmacy #[id number], Depression, major, recurrent, moderate, 154, cm, 07/20/23 7:49:00 EDT, Height, kg, 07/20/23 7:49:00 EDT, Dosing Weight Start Date: 08/16/23 Stop Date: 08/10/24 Status: Ordered Vitamin B2 100 mg oral tablet (8 sources) Start: 02-04-2023 take 1 tablet by mouth once daily Vitamin B2 100 mg oral tablet 1 tab(s), Oral, qDay, # 30 tab(s), 2 Refill(s), Pharmacy: [facility] STORE [id number], 155, cm, 02/01/23 13:50:00 EDT, Height, kg, 01/26/23 0:59:00 EDT, Dosing Weight Start Date: 02/04/23 Status: Ordered Start: 01-11-2023 Vitamin B2 100 mg oral tablet Dose : 100 mg = 1 tab(s), Oral, Daily, # 30 tab(s), 2 Refill(s), Pharmacy: [facility]/pharmacy #[id number], 155, cm, 01/11/23 15:08:00 EDT, [...] (FLONASE) 50 mcg/actuation nasal spray Use 1 [place] in each nostril once daily. 1 Bottle 2 07/10/2014 08/19/2022 Discontinued Comment on above: Use 1 [place] in each nostril once daily. loratadine 10 [...] (3 sources) Congenital vesicoureterorenal reflux; Translations: [Congenital vomahz-mlmrjmh-rhjqq reflux] Onset: 5 Chronic Genitourinary symptoms and ill-defined conditions (1 source) Dysuria; Translations: [Dysuria] Onset: 5 Episodic Headache; including migraine (2 sources) Migraine 02-18-2024 [...] cavity, initial encounter] Onset: 5 Episodic Other circulatory disease (1 source) Elevated blood-pressure reading, without diagnosis of hypertension; Translations: [Elevated blood-pressure reading, without diagnosis of hypertension] Onset: 5 Episodic Other complications of (1 [...] conditions, unspecified trimester] Episodic Other complications of (2 sources) Supervision of high risk , unspecified, second trimester; Translations: [Supervision of high risk , unspecified, second trimester] Onset: 5 Episodic Other complications of (1 source) Supervision of with other poor reproductive or obstetric history, unspecified trimester; Translations: [Supervision of with other poor reproductive or obstetric history, unspecified trimester] Onset: 5 Episodic Other complications of (1 source) Other specified related conditions, unspecified trimester; Translations: [Other specified related conditions, unspecified trimester] Onset: 5 Episodic Other female [...] other serum enzymes] Onset: 5 Episodic Other lower respiratory disease (1 source) Dyspnea, unspecified; Translations: [Dyspnea, unspecified] Onset: 5 Episodic Other nervous system disorders (2 sources) Numbness of face 02-18-2024 Episodic Other nutritional; endocrine; and metabolic disorders (9 sources) Body mass index 30+ - obesity 02-01-2023 Chronic Other and delivery including normal (20 sources) Normal ; Translations: [Encounter for supervision of normal first , first trimester] Onset: 2 Episodic Other screening for suspected conditions (not mental disorders or infectious disease) (3 sources) Other specified abnormal findings of blood chemistry; Translations: [Encounter for screening for diabetes mellitus] Onset: 2 Episodic Other skin disorders (1 source) Disorder of [...] 5 Episodic Residual codes; unclassified (1 source) 25 weeks gestation of ; Translations: [25 weeks gestation of ] Onset: 5 Episodic Residual codes; unclassified (1 source) 22 weeks gestation of ; Translations: [22 weeks gestation of ] Onset: 5 Episodic Spondylosis; intervertebral disc disorders; other back problems (7 sources) Lumbar radiculopathy; Translations: [Radiculopathy, lumbar region] Onset: 5 Episodic Sprains and strains (10 sources) Strain of neck muscle; Translations: [Strain of muscle, fascia and tendon at neck level, initial encounter] Episodic Superficial injury; contusion (8 sources) Contusion of chest; Translations: [Contusion of unspecified front wall of thorax, initial encounter] Episodic Unclassified (11 sources) Patient encounter status 07-20-2023 Unclassified (1 source) Pelvic and perineal pain unspecified side; Translations: [Pelvic and perineal pain unspecified side] Onset: 5 Unclassified (1 source) Other specified diseases and conditions complicating ; Translations: [Other specified diseases and conditions complicating ] Onset: 5 Urinary tract infections (17 sources) Urinary tract infectious disease; Translations: [Urinary [...] unspecified; Translations: [Fever, unspecified] Onset: 03-27-2025 Episodic Headache; including migraine (7 sources) Headache; [...] applicable or unspecified] Onset: 03-09-2023 Episodic Other complications of (1 source) Supervision of high risk , unspecified, unspecified trimester; Translations: [Supervision of high risk , unspecified, unspecified trimester] Onset: 05-11-2025 Episodic Other injuries and conditions due to [...] Translations: [Abnormal weight loss] Onset: 07-10-2014 Episodic Residual codes; unclassified (2 sources) 36 weeks gestation of ; Translations: [36 weeks gestation of ] Onset: 03-09-2023 Episodic Residual codes; unclassified (1 source) 13 weeks gestation of ; Translations: [13 weeks gestation of ] Onset: 05-07-2025 Episodic Residual codes; unclassified (1 source) 9 weeks gestation of ; Translations: [9 weeks gestation of ] Onset: 04-09-2025 Episodic Results Test Name Value Interpretation Reference Range Facil ity Urine Cultureon 08-23-2025 URC Urine Culture Mixed Gram Positive Organisms Reynolds Count 80,000-100,000 MIXC Mixed contaminants. Submit a new specimen if indicated. Normal [facility] Comment on above: Performed By: #### L 501.2450, L500.3400, L500.2500 #### [facility] [address] [place], [address] CBC W/Diff, Automatedon 08-11 Absolute Lymph 1.25 X10 3/uL Normal 0.83-4.51 [facility] Comment on above: Performed By: #### L 509.8002, L501.0250, L100.0100, L3890.6006 ####[facility] [address] [place], [address] Absolute Neut 7.3 X10 3/uL Normal 2.0-7.7 [facility] Comment on above: Performed By: #### L 509.8002, L501.0250, L100.0100, L3890.6006 ####[facility] [address] [place], [address] Basophils/100 WBC (Bld) 0.1 % Normal 0-1 [facility] Comment on above: Performed By: #### L 509.8002, L501.0250, L100.0100, L3890.6006 ####[facility] [address] [place], [address] Eosinophils/100 WBC (Bld) 0.3 % Normal 0-5 [facility] Comment on above: Performed By: #### L 509.8002, L501.0250, L100.0100, L3890.6006 ####[facility] [address] [place], [address] Erythrocyte distribution width (RBC) [Ratio] 13.7 % Normal 11.6-14.6 [facility] Comment on above: Performed By: #### L 509.8002, L501.0250, L100.0100, L3890.6006 ####[facility] [address] [place], [address] Hematocrit (Bld) [Volume fraction] 33.6 % Low 37-47 [facility] Comment on above: Performed By: #### L 509.8002, L501.0250, L100.0100, L3890.6006 ####[facility] [address] [place], [address] Hemoglobin (Bld) [Mass/Vol] 11.6 g/dL Low 12.0-15.0 [facility] Comment on above: Performed By: #### L 509.8002, L501.0250, L100.0100, L3890.6006 ####[facility] [address] [place], [address] IG% 0.900 Normal 0.0-0.9 [facility] Comment on above: Result Comment: IG% - Immature Granulocytes (promyelocytes, myelocytes and metamyelocytes) > 1% indicates that a LEFT SHIFT is Present. Performed By: #### L 509.8002, L501.0250, L100.0100, L3890.6006 ####[facility] [address] [place], [address] Lymphocytes/100 WBC (Bld) 13.5 % Low 19-41 [facility] Comment on above: Performed By: #### L 509.8002, L501.0250, L100.0100, L3890.6006 ####[facility] [address] [place], [address] MCH (RBC) [Entitic mass] 32.5 pg High 27.0-32.0 [facility] Comment on above: Performed By: #### L 509.8002, L501.0250, L100.0100, L3890.6006 ####[facility] [address] [place], [address] MCHC (RBC) [Mass/Vol] 34.5 g/dL Normal 32-36 [facility] Comment on above: Performed By: #### L 509.8002, L501.0250, L100.0100, L3890.6006 ####[facility] [address] [place], [address] MCV (RBC) [Entitic vol] 94.1 fL Normal 81-99 [facility] Comment on above: Performed By: #### L 509.8002, L501.0250, L100.0100, L3890.6006 ####[facility] [address] [place], [address] Monocytes/100 WBC (Bld) 6.7 % Normal 0-10 [facility] Comment on above: Performed By: #### L 509.8002, L501.0250, L100.0100, L3890.6006 ####[facility] [address] [place], [address] Neutrophils/100 WBC (Bld) 78.5 % High 47-70 [facility] Comment on above: Performed By: #### L 509.8002, L501.0250, L100.0100, L3890.6006 ####[facility] [address] [place], [address] Nucleated RBC (Bld) [#/Vol] 0 10*3/uL Normal 0-5 [facility] Comment on above: Performed By: #### L 509.8002, L501.0250, L100.0100, L3890.6006 ####[facility] [address] [place], [address] Platelet mean volume (Bld) [Entitic vol] 9.9 fL Normal 6.2-12.0 [facility] Comment on above: Performed By: #### L 509.8002, L501.0250, L100.0100, L3890.6006 ####[facility] [address] [place], [address] Platelets (Bld) [#/Vol] 184 10*3/uL Normal 150-450 [facility] Comment on above: Performed By: #### L 509.8002, L501.0250, L100.0100, L3890.6006 ####[facility] [address] [place], [address] RBC (Bld) [#/Vol] 3.57 10*6/uL Low 4.2-5.4 [facility] Comment on above: Performed By: #### L 509.8002, L501.0250, L100.0100, L3890.6006 ####[facility] [address] [place], [address] RDW SD 46.3 fl High 35.1-43.9 [facility] Comment on above: Performed By: #### L 509.8002, L501.0250, L100.0100, L3890.6006 ####[facility] [address] [place], [address] WBC (Bld) [#/Vol] 9.3 10*3/uL Normal 4.4-11.0 [facility] Comment on above: Performed By: #### L 509.8002, L501.0250, L100.0100, L3890.6006 ####[facility] [address] [place], [address] Comprehensive Metabolic Prof coon 08-21-2025 Albumin [Mass/Vol] 3.8 g/dL Normal 3.5-5.0 [facility] Comment on above: Performed By: #### L 501.2450, L500.3400, L500.2500 #### [facility] [address] [place], [address] Albumin/Globulin [Mass ratio] 1.5 {ratio} Normal 0.9-2.4 [facility] Comment on above: Performed By: #### L 501.2450, L500.3400, L500.2500 #### [facility] [address] [place], [address] ALK PHOS 73 U/L Normal 35-104 [facility] Comment on above: Performed By: #### L 501.2450, L500.3400, L500.2500 #### [facility] [address] [place], [address] ALT [Catalytic activity/Vol] 12 U/L Normal <=34 [facility] Comment on above: Performed By: #### L 501.2450, L500.3400, L500.2500 #### [facility] [address] [place], [address] AST [Catalytic activity/Vol] 19 U/L Normal <=31 [facility] Comment on above: Performed By: #### L 501.2450, L500.3400, L500.2500 #### [facility] [address] [place], [address] Bilirubin [Mass/Vol] 0.27 mg/dL Normal 0.00-1.30 [facility] Comment on above: Performed By: #### L 501.2450, L500.3400, L500.2500 #### [facility] [address] [place], [address] BUN/CRE 14.1 RATIO Normal 10-20 [facility] Comment on above: Performed By: #### L 501.2450, L500.3400, L500.2500 #### [facility] [address] [place], [address] Calcium [Mass/Vol] 9.2 mg/dL Normal 7.6-11.0 [facility] Comment on above: Performed By: #### L 501.2450, L500.3400, L500.2500 #### [facility] [address] [place], [address] Chloride [Moles/Vol] 103 mmol/L Normal 98-108 [facility] Comment on above: Performed By: #### L 501.2450, L500.3400, L500.2500 #### [facility] [address] [place], [address] CO2 [Moles/Vol] 18.2 mmol/L Low 21.0-32.0 [facility] Comment on above: Performed By: #### L 501.2450, L500.3400, L500.2500 #### [facility] [address] [place], [address] Creatinine [Mass/Vol] 0.56 mg/dL Low 0.70-1.20 [facility] Comment on above: Performed By: #### L 501.2450, L500.3400, L500.2500 #### [facility] [address] [place], [address] GAP 14 Normal 5-15 [facility] Comment on above: Performed By: #### L 501.2450, L500.3400, L500.2500 #### [facility] [address] [place], [address] GFR/1.73 sq M.predicted among non-blacks MDRD (S/P/Bld) [Vol rate/Area] 130 mL/min/{1.73_m2} Normal >60 [facility] Comment on above: Result Comment: mL/m in/1.73m2 CKD-EPI Creatinine Equation (2020) Performed By: #### L 501.2450, L500.3400, L500.2500 #### [facility] [address] [place], [address] Globulin (S) [Mass/Vol] 2.6 g/dL Normal 2.2-4.2 [facility] Comment on above: Performed By: #### L 501.2450, L500.3400, L500.2500 #### [facility] [address] [place], [address] Glucose [Mass/Vol] 99 mg/dL Normal 70-99 [facility] Comment on above: Performed By: #### L 501.2450, L500.3400, L500.2500 #### [facility] [address] [place], [address] Potassium [Moles/Vol] 3.3 mmol/L Normal 3.3-5.1 [facility] Comment on above: Performed By: #### L 501.2450, L500.3400, L500.2500 #### [facility] [address] [place], [address] Sodium [Moles/Vol] 135 mmol/L Normal 133-145 [facility] Comment on above: Performed By: #### L 501.2450, L500.3400, L500.2500 #### [facility] [address] [place], [address] T PROT 6.3 g/dL Normal 5.9-8.4 [facility] Comment on above: Performed By: #### L 501.2450, L500.3400, L500.2500 #### [facility] [address] [place], [address] Urea nitrogen [Mass/Vol] 8 mg/dL Normal 4-19 [facility] Comment on above: Performed By: #### L 501.2450, L500.3400, L500.2500 #### [facility] [address] [place], [address] Glucose Challenge Gest 1H 50 franchesca 08-21-2025 GLU GEST 50g 1H 101 mg/dL Normal 70-140 [facility] Comment on above: Performed By: #### L 509.8002, L501.0250, L100.0100, L3890.6006 ####[facility] [address] [place], [address] HIVon 08-21-2025 HIV Non-Reactive Normal Nonreactive [facility] Comment on above: Result Comment: Non- Reactive Reactive Repeatedly reactive samples must be confirmed according to CDC recommended confirmatory algorithms. The subresults for either HIVAG or AHIV can be used as an aid in the selection of the confirmation algorithm for reactive samples. Send out specimens with Reactive results to [facility] for confirmation. Order the HIV antibody detection and differentiation: lc#[id number] Performed By: #### L 509.8002, L501.0250, L100.0100, L3890.6006 ####[facility] [address] [facility] [address] Pellet Press Operator Office Visit Reporton 08-21-2025 Pellet Press Operator Office Visit Report [facility]'s [address], [address] [place] [address] OFFICE VISIT Date of Service: 08/21/25 MR#: [id number] Acct: [id number] Name: LUZ OLIVEIRA Rep #: [id number] : 2000 Provider: JARAD moctezuma Age/Sex: 24/F [place] [facility] [place]: Signed Intake Vital Signs 06/06/25 13:39 08/01/25 15:50 08/21/25 13:30 Height 5 ft 1 in 5 ft 1 in 5 ft 1 in Weight: 190 lb 7 oz BMI 35.9 BP 118/75 Intake Visit Reasons: 28wk4d ob/glucose Supervisor Cutting And Boning Required: No Is patient in pain?: No Allergies escitalopram (From Lexapro) Adverse Reaction (Severe, Verified 08/21/25 13:48) SUICIDAL citalopram hydrobromide (From Celexa) Adverse Reaction (Verified 08/21/25 13:48) Other Medications ???Medication ???Instructions ???Recorded ???Confirmed ???Type adygiufo-hta-Oi-FA 1 mg 1 tab PO DAILY 08/09/22 08/21/25 H istory tablet metoclopramide HCl 10 mg tablet 10 mg PO TID nausea #90 tabs 07/0908/21/25 Rx (Reglan) nitrofurantoin 100 mg PO BID 7 days #14 caps 08/1108/21/25 Rx monohydrate/macrocrys tals 100 mg capsule (Macrobid) Last Menstrual Period: 02/02/25 Zika: Zika virus screening: Negative : No PFSH PFSH Medical History Fatty liver Renal atrophy, left Elevated liver enzymes Heart palpitations History of gestational hypertension Obesity affecting 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 marbta-qidulcb-nbqem reflux Surgical History [place] teeth removed Family History Grandmother Breast cancer Brain cancer Grandfather CVA (cerebral vascular accident) Mother Diabetes Heart failure MRSA carrier History of recurrent miscarriages Father Hypertension Social History adopted: No household members: spouse and children housing: house number of children: 1 current occupation: [employer] current occupational exposures/hazards: No pets and animals: [...] 3-4 times per week duration: 15-30 minutes/day kalpana/latter day: Voodoo seatbelt use: always do you feel safe at home: Yes 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 Date Name GA/Weeks Outcome Route Bth Weight Gen Labor Lgth Anesthesia Del Locatn Provider FOB 10/11/18 Chemical 4 spontaneous 03/30/23 Amanda 39 live - full term vacuum 6lbs 1oz [facility]: 03[facility]30/23 Last Updated by: Yasmin Newman RN Hyperemesis, Subchorionic hemorrhage, GHTN, SGA/IUGR HPI 28wk4d ob/glucose Details: LUZ OLIVEIRA is a 24 year old who presents for routine OB visit. OB Visit KIMO Calculator Estimated Delivery Date Method Current WG Current Estimate 11/09/25 LMP (Certain) 28w 4d Other Estimates 11/10/25 Ultrasound #1 28w 3d Expected Delivery Route/Plan Labor Preferences- CB/BF classes: no labor support person: Saravanan labor intervention preferences: [] pain management options preferred: [] cut cord/dad catch: [] : [] PP control planned: [] discussed possible routes of delivery and associated risks: [] special requests: [] Specific Issue/Plans Covid status: [] Flu vaccine: declines Tdap vaccine: declines Rhogam: NA LARC form signed: yes Problem list reviewed and updated with the [...] ???-???-???-???-???-? ??-???- Effaced St Visit Note 04/09/25 -???- (more content not included)... Normal [facility] Syphilis Antibodieson 2024 Syphilis Abs Non-Reactive Normal Nonreactive [facility] Comment on above: Performed By: #### L 509.8002, L501.0250, L100.0100, L3890.6006 ####[facility] [address] [facility] [place], [place], [address] OB Limited With Biometricson 08-15-2025 OB Limited With Biometrics [facility] Imaging Services [address] [place], [place] [address] OB Limited With Biometrics MR#: [id number] Acct: [id number] Name: LUZ OLIVEIRA Rep #: [id number] : 2000 F 24 From: Richard Gonzalez PCP: Care Physician,No Primary Status: REG CLI Study: OB Limited With Biometrics Date of Exam: 08/15 Exam# [id number] Ordering Dr: Geraldine Bradford PROCEDURE: OB LIMITED WITH BIOMETRICS 08/15/2025 REASON FOR EXAM: GROWTH TECHNIQUE: Procedure Code: USOBGROWTH Modality: US Procedure: OB LIMITED WITH BIOMETRICS FINDINGS Transverse right position with cardiac activity of 144 bpm. Maximum vertical pocket of 6 cm and DEMOND of 20.1 cm. Placenta is anterior position with grade 1. Cervical length is 3.9 cm and is closed. BPD of 6.9, OFD of the 9.2, HC of 26.1, AC of 23.2, and FL of 4.8 cm corresponding with average gestational age of 27 weeks and 4 days with KIMO of 11/10/2025. Estimated weight of 1027 (19 percentile). US/OB Limited With Biometrics IMPRESSION: FL measurement is 3% and estimated weight is 19% for age. Otherwise unremarkable biometrics. Average gestational age of 27 weeks and 4 days with KIMO of 11/10/2025. Reading Location: [facility] CC: Dr. 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, [address] Absolute Neut 7.9 X10 3/uL High 2.0-7.7 [facility] Comment on above: Performed By: #### L 100.0100, L500.4050 ####[facility] [address] [place], [address] Basophils/100 WBC (Bld) 0.1 % Normal 0-1 [facility] Comment on above: Performed By: #### L 100.0100, L500.4050 ####[facility] [address] [place], [address] Eosinophils/100 WBC (Bld) 0.4 % Normal 0-5 [facility] Comment on above: Performed By: #### L 100.0100, L500.4050 ####[facility] [address] [place], [address] Erythrocyte distribution width (RBC) [Ratio] 14.0 % Normal 11.6-14.6 [facility] Comment on above: Performed By: #### L 100.0100, L500.4050 ####[facility] [address] [place], [address] Hematocrit (Bld) [Volume fraction] 34.8 % Low 37-47 [facility] Comment on above: Performed By: #### L 100.0100, L500.4050 ####[facility] [address] [place], [address] Hemoglobin (Bld) [Mass/Vol] 12.1 g/dL Normal 12.0-15.0 [facility] Comment on above: Performed By: #### L 100.0100, L500.4050 ####[facility] [address] [place], [address] IG% 0.400 Normal 0.0-0.9 [facility] Comment on above: Result Comment: IG% - Immature Granulocytes (promyelocytes, myelocytes and metamyelocytes) > 1% indicates that a LEFT SHIFT is Present. Performed By: #### L 100.0100, L500.4050 ####[facility] [address] [place], [address] Lymphocytes/100 WBC (Bld) 14.0 % Low 19-41 [facility] Comment on above: Performed By: #### L 100.0100, L500.4050 ####[facility] [address] [place], [address] MCH (RBC) [Entitic mass] 32.4 pg High 27.0-32.0 [facility] Comment on above: Performed By: #### L 100.0100, L500.4050 ####[facility] [address] [place], [address] MCHC (RBC) [Mass/Vol] 34.8 g/dL Normal 32-36 [facility] Comment on above: Performed By: #### L 100.0100, L500.4050 ####[facility] [address] [place], [address] MCV (RBC) [Entitic vol] 93.3 fL Normal 81-99 [facility] Comment on above: Performed By: #### L 100.0100, L500.4050 ####[facility] [address] [place], [address] Monocytes/100 WBC (Bld) 5.1 % Normal 0-10 [facility] Comment on above: Performed By: #### L 100.0100, L500.4050 ####[facility] [address] [place], [address] Neutrophils/100 WBC (Bld) 80.0 % High 47-70 [facility] Comment on above: Performed By: #### L 100.0100, L500.4050 ####[facility] [address] [place], [address] Nucleated RBC (Bld) [#/Vol] 0 10*3/uL Normal 0-5 [facility] Comment on above: Performed By: #### L 100.0100, L500.4050 ####[facility] [address] [place], [address] Platelet mean volume (Bld) [Entitic vol] 9.9 fL Normal 6.2-12.0 [facility] Comment on above: Performed By: #### L 100.0100, L500.4050 ####[facility] [address] [place], [address] Platelets (Bld) [#/Vol] 191 10*3/uL Normal 150-450 [facility] Comment on above: Performed By: #### L 100.0100, L500.4050 ####[facility] [address] [place], [address] RBC (Bld) [#/Vol] 3.73 10*6/uL Low 4.2-5.4 [facility] Comment on above: Performed By: #### L 100.0100, L500.4050 ####[facility] [address] [place], [address] RDW SD 47.3 fl High 35.1-43.9 [facility] Comment on above: Performed By: #### L 100.0100, L500.4050 ####[facility] [address] [place], [address] WBC (Bld) [#/Vol] 9.8 10*3/uL Normal 4.4-11.0 [facility] Comment on above: Performed By: #### L 100.0100, L500.4050 ####[facility] [address] [place], [address] Comprehensive Metabolic [facility] 08-01-2025 Albumin [Mass/Vol] 4.1 g/dL Normal 3.5-5.0 [facility] Comment on above: Performed By: #### L 100.0100, L500.4050 ####[facility] [address] [place], [address] Albumin/Globulin [Mass ratio] 1.5 {ratio} Normal 0.9-2.4 [facility] Comment on above: Performed By: #### L 100.0100, L500.4050 ####[place] [facility] [address] [place], [address] ALK PHOS 74 U/L Normal 35-104 [facility] Comment on above: Performed By: #### L 100.0100, L500.4050 ####[facility] [address] [place], [address] ALT [Catalytic activity/Vol] 14 U/L Normal <=34 [facility] Comment on above: Performed By: #### L 100.0100, L500.4050 ####[facility] [address] [place], [address] AST [Catalytic activity/Vol] 18 U/L Normal <=31 [facility] Comment on above: Performed By: #### L 100.0100, L500.4050 ####[facility] [address] [place], [address] Bilirubin [Mass/Vol] 0.33 mg/dL Normal 0.00-1.30 [facility] Comment on above: Performed By: #### L 100.0100, L500.4050 ####[facility] [address] [place], [address] BUN/CRE 9.0 RATIO Low 10-20 [facility] Comment on above: Performed By: #### L 100.0100, L500.4050 ####[facility] [address] [place], [address] Calcium [Mass/Vol] 9.1 mg/dL Normal 7.6-11.0 [facility] Comment on above: Performed By: #### L 100.0100, L500.4050 ####[facility] [address] [place], [address] Chloride [Moles/Vol] 104 mmol/L Normal 98-108 [facility] Comment on above: Performed By: #### L 100.0100, L500.4050 ####[facility] [address] [place], [address] CO2 [Moles/Vol] 22.8 mmol/L Normal 21.0-32.0 [facility] Comment on above: Performed By: #### L 100.0100, L500.4050 ####[facility] [address] [place], [address] Creatinine [Mass/Vol] 0.55 mg/dL Low 0.70-1.20 [facility] Comment on above: Performed By: #### L 100.0100, L500.4050 ####[facility] [address] [place], [address] GAP 13 Normal 5-15 [facility] Comment on above: Performed By: #### L 100.0100, L500.4050 ####[facility] [address] [place], [address] GFR/1.73 sq M.predicted among non-blacks MDRD (S/P/Bld) [Vol rate/Area] 130 mL/min/{1.73_m2} Normal >60 [facility] Comment on above: Result Comment: mL/m in/1.73m2 CKD-EPI Creatinine Equation (2020) Performed By: #### L 100.0100, L500.4050 ####[facility] [address] [place], [address] Globulin (S) [Mass/Vol] 2.7 g/dL Normal 2.2-4.2 [facility] Comment on above: Performed By: #### L 100.0100, L500.4050 ####[facility] [address] [place], [address] Glucose [Mass/Vol] 105 mg/dL High 70-99 [facility] Comment on above: Performed By: #### L 100.0100, L500.4050 ####[facility] [address] [place], [address] Potassium [Moles/Vol] 3.9 mmol/L Normal 3.3-5.1 [facility] Comment on above: Performed By: #### L 100.0100, L500.4050 ####[facility] [address] [place], [address] Sodium [Moles/Vol] 139 mmol/L Normal 133-145 [facility] Comment on above: Performed By: #### L 100.0100, L500.4050 ####[facility] [address] [place], [address] T PROT 6.7 g/dL Normal 5.9-8.4 [facility] Comment on above: Performed By: #### L 100.0100, L500.4050 ####[facility] [address] [place], [address] Urea nitrogen [Mass/Vol] 5 mg/dL Normal 4-19 [facility] Comment on above: Performed By: #### L 100.0100, L500.4050 ####[facility] [address] [place], [address] Pellet Press Operator Office Visit Reporton 08-01-2025 Pellet Press Operator Office Visit Report [facility]'s [address], [address] [place] [address] OFFICE VISIT Date of Service: 08/01/25 MR#: [id number] Acct: [id number] Name: LUZ OLIVEIRA Rep #: [id number] : 2000 Provider: Dr. Geraldine storey MD Age/Sex: 24/F [place] [facility] [place]: Signed Intake Vital Signs 05/07/25 14:40 07/30/25 13:43 08/01/25 15:50 Height 5 ft 1 in 5 ft 1 in 5 ft 1 in Weight: 188 lb 4 oz BMI 35.5 BP 129/86 H Temp 98.7 F Intake Visit Reasons: 25wk ob Supervisor Cutting And Boning Required: No Is patient in pain?: Yes (lower back pain, pelvic cramping) Allergies escitalopram (From Lexapro) Adverse Reaction (Severe, Verified 08/01/25 15:52) SUICIDAL citalopram hydrobromide (From Celexa) Adverse Reaction (Verified 08/01/25 15:52) Other Medications ???Medication ???Instructions ???Recorded ???Confirmed ???Type itwsffef-faa-Sf-FA 1 mg 1 tab PO DAILY 08/09/22 08/01/25 H istory tablet metoclopramide HCl 10 mg tablet 10 mg PO TID nausea #90 tabs 07/0908/01/25 Rx (Reglan) cephalexin 500 mg capsule 500 mg PO TID 7 days #21 caps 07/1208/01/25 Rx Last Menstrual Period: 02/02/25 Zika: Zika virus screening: Negative : No PFSH PFSH Medical History Fatty liver Renal atrophy, left Elevated liver enzymes Heart palpitations History of gestational hypertension Obesity affecting 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 dopjpw-gxqbeez-algkd reflux Surgical History [place] teeth removed Family History Grandmother Breast cancer Brain cancer Grandfather CVA (cerebral vascular accident) Mother Diabetes Heart failure MRSA carrier History of recurrent miscarriages Father Hypertension Social History adopted: No household members: spouse and children housing: house number of children: 1 current occupation: [employer] current occupational exposures/hazards: No pets and animals: [...] 3-4 times per week duration: 15-30 minutes/day kalpana/latter day: Voodoo seatbelt use: always do you feel safe at home: Yes 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: : 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 Date Name GA/Weeks Outcome Route Bth Weight Gen Labor Lgth Anesthesia Del Locatn Provider FOB 10/11/18 Chemical 4 spontaneous 03/30/23 Amanda 39 live - full term vacuum 6lbs 1oz Female epidural Josefcyn Coe Delivery Date: 03/30/23 Last Updated by: Yasmin Newman RN Hyperemesis, Subchorionic hemorrhage, GHTN, SGA/IUGR HPI 25wk ob Details: LUZ OLIVEIRA is a 24 year old who presents for routine OB visit. OB Visit KIMO Calculator Estimated Delivery Date Method Current WG Current Estimate 11/09/25 LMP (Certain) 25w 5d Other Estimates 11/10/25 Ultrasound #1 25w 4d Expected Delivery Route/Plan Labor Preferences- CB/BF [...] ??-???- Effaced St Visit Note 04/09/25 -???-???-???-???-???- ???-???-???-???-???- (more content not included)... Normal [facility] Urine Cultureon 08-01-2025 URC Mixed Gram Positive Organisms Reynolds Count 50,000-80,000 MIXC Mixed contaminants. Submit a new specimen if indicated. Normal [facility] Comment on above: Performed By: #### M 100.2200 ####[facility] [address] [place], [address] (ROM) Rupture Of Membraneson 07-30-2025 ROM Negative Normal Negative [facility] Comment on above: Result Comment: Amni otic fluid not present indicates No Rupture of Membranes at time of specimen collection. Performed By: #### L 205.1000 ####[facility] [address] [place], [address] OB Triage Physician Noteon 1 OB Triage Physician Note [facility] Medical Records Department [address] [place] [address] OB Triage Physician Note 07/30/25 1342 MR#: [id number] Acct: [id number] Name: LUZ OLIVEIRA Rep #: [id number] : 2000 24 From: Lupe Mead CNM PCP: Care Physician,No Primary Status:DEP CLI Y Location: [facility] HPI - General HPI Narrative LUZ OLIVEIRA, is a 24 F who presents [ ] Maternal Data Information KIMO Calculator Estimated Delivery Date Method Current WG Current Estimate 11/09/25 LMP (Certain) 25w 3d Other Estimates 11/10/25 Ultrasound #1 25w 2d PFSH PFSH Medical History Fatty liver Renal atrophy, left Elevated liver enzymes Heart palpitations History of gestational hypertension Obesity affecting 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 nbqymz-dqkepkf-hnowp reflux Home Medications ???Medication ???Instructions ???Recorded ???Last Taken ???Type priebxsy-vdf-Xq-FA 1 mg 1 tab PO DAILY 08/09/22 Unknown Hi story tablet metoclopramide HCl 10 mg tablet 10 mg PO TID nausea #90 tabs 07/09 Unknown Rx (Reglan) Allergy/AdvReac Type Severity Reaction Status Date / Time escitalopram (From Lexapro) AdvReac Severe SUICIDAL Verified 07/30/25 13:41 citalopram hydrobromide AdvReac Other Verified 07/30/25 13:41 (From Celexa) Family History Grandmother Breast cancer Brain cancer Grandfather CVA (cerebral vascular accident) Mother Diabetes Heart failure MRSA carrier History of recurrent miscarriages Father Hypertension Surgical History [place] teeth removed Social History adopted: No household members: spouse and children housing: house number of children: 1 current occupation: [employer] current occupational exposures/hazards: No pets and animals: [...] 3-4 times per week duration: 15-30 minutes/day kalpana/latter day: Voodoo seatbelt use: always do you feel safe at home: Yes 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: : 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[employer] History 3 Elective abortions Hx Para 1 [...] Newman RN Hyperemesis, Subchorionic hemorrhage, GHTN, SGA/IUGR Visit Details Expected Delivery Route/Plan Labor Preferences- CB/BF classes: [] labor support person: [] labor intervention preferences: [] pain management options preferred: [] cut cord/dad catch: [] : [] PP control planned: [] discussed possible routes of delivery and associated risks: [] special requests: [] Plans Covid status: [] Flu vaccine: [] Tdap vaccine: [] Rhogam: [] LARC form signed: [] Problem list reviewed and updated with the most current plan of care details and appropriate orders placed. Relevant counseling for the gestational age provided. Continue routine care and follow up unless otherwise noted in visit notes/problem list details OB Flowsheet Initial Weight: Not Recorded Date -???-???-???-???-???- ???-???-???-???-???-? [...] oz 117/83 Trace -???-???-???-???-???- ???-???-???-???-???-? ??-???- Negative 166 -???-???-???-???-???- ???-???-???-???-???-? ??-???- KW- no vb/cr amping. getting headaches with dizziness and when e (more content not included)... Normal [facility] Pellet Press Operator Office Visit Reporton 07-30-2025 Pellet Press Operator Office Visit Report [facility] [address], [address] [place] [address] OFFICE VISIT Date of Service: 07/30/25 MR#: [id number] Acct: [id number] Name: LUZ OLIVEIRA Rep #: [id number] : 2000 Provider: JELENA Ordonez ams Age/Sex: 24/F Location[place] [facility] Status: Signed Intake Vital Signs 07/30/25 01:24 07/30/25 13:43 Height 5 ft 1 in 5 ft 1 in Weight: 188 lb 5 oz BMI 35.6 BP 120/82 H Pulse 112 H Pulse Source Monitor Pulse Oximetry (%) 97 Oxygen Delivery Method room air Intake Visit Reasons: OB ER fu per KW Chief Complaint: 25wk OB ER FU Supervisor Cutting And Boning Required: No Is patient in pain?: Yes (Back, Rib Cage) Pain scale (1-10): 7 Allergies escitalopram (From Lexapro) Adverse Reaction (Severe, Verified 07/30/25 13:41) SUICIDAL citalopram hydrobromide (From Celexa) Adverse Reaction (Verified 07/30/25 13:41) Other Medications ???Medication ???Instructions ???Recorded ???Confirmed ???Type ydpqspjd-erv-Fv-FA 1 mg 1 tab PO DAILY 08/09/22 07/30/25 H istory tablet metoclopramide HCl 10 mg tablet 10 mg PO TID nausea #90 tabs 07/0907/30/25 Rx (Reglan) nitrofurantoin 100 mg PO BID 7 days #14 caps 07/1207/30/25 Rx monohydrate/macrocrys tals 100 mg capsule (Macrobid) Last Menstrual Period: 02/02/25 : No Have you fallen in the past year?: No PFSH PFSH Medical History Fatty liver Renal atrophy, left Elevated liver enzymes Heart palpitations History of gestational hypertension Obesity affecting 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 gvbysl-cixotkb-oojxn reflux Surgical History [place] teeth removed Family History Grandmother Breast cancer Brain cancer Grandfather CVA (cerebral vascular accident) Mother Diabetes Heart failure MRSA carrier History of recurrent miscarriages Father Hypertension Social History adopted: No household members: spouse and children housing: house number of children: 1 current occupation: [employer] current occupational exposures/hazards: No pets and animals: [...] 3-4 times per week duration: 15-30 minutes/day kalpana/latter day: Voodoo seatbelt use: always do you feel safe at home: Yes 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 Date Name GA/Weeks Outcome Route Bth Weight Gen Labor Lgth Anesthesia Del Locatn Provider FOB 10/11/18 Chemical 4 spontaneous 03/30/23 Amanda 39 live - full term vacuum 6lbs 1oz Female epidural Josefcyn Coe Delivery Date: 03/30/23 Last Updated by: Yasmin Newman RN Hyperemesis, Subchorionic hemorrhage, GHTN, SGA/IUGR HPI OB ER fu per KW Details: LUZ OLIVEIRA is a 24 year old who presents for routine OB visit. OB Visit KIMO Calculator Estimated Delivery Date Method Current WG Current Estimate 11/09/25 LMP (Certain) 25w 3d Other Estimates 11/10/25 Ultrasound #1 25w 2d Expected Delivery Route/Plan Labor Preferences- CB/BF [...] -???-???-???-???-???- ???-???-???-???-???-? ??-???- Glucose FHR FuHt Pres Dilat (more content not included)... Normal [facility] 12 Lead EKGon 07-29-2025 12 Lead EKG [facility] Cardiovascular Services [address] [place] [address] 12 Lead EKG 07/29/252108 MR#: [id number] Acct: [id number] Name: LUZ OLIVEIRA Rep #: [id number] : 2000 From: Keven Alvarez MD Attending Dr: Lupe Mead CNM Status: DEP CLI Ordering Dr: José Manuel Major MD Date: 07/29/25 Location: [facility] Sex: F C Admitted: Test Reason : SOB Blood Pressure : */* mmHG Vent. Rate : 107 BPM Atrial Rate : 107 BPM P-R Int : 130 ms QRS Dur : 74 ms QT Int : 328 ms P-R-T Axes : 36 61 -29 degrees QTcB Int : [address] T wave abnormality, consider inferior ischemia Abnormal ECG Confirmed by ANTONIO AN, KEVEN ([id number]), sound editor BEAU SHIRLEY ([id number]) on 07/30/2025 10:40:55 AM Referred By: Lupe Mead Confirmed By: KEVEN ALVAREZ MD 07/30/25 1040 Date Keven Alvarez MD CC: CNKailee Mead; Dr. José Manuel Major MD; No Primary Care Physician Signed Normal [facility] Basic Metabolic Profile (BMP )on 07-29-2025 BUN/CRE 11.3 RATIO Normal 07-30 [facility] Comment on above: Performed By: #### L 501.2450, L500.3400, L500.2500 #### [facility] Laboratory [address] [place], [address] Calcium [Mass/Vol] 9.2 mg/dL Normal 7.6-11.0 [facility] Comment on above: Performed By: #### L 501.2450, L500.3400, L500.2500 #### [facility] [address] [place], [address] Chloride [Moles/Vol] 103 mmol/L Normal 98-108 [facility] Comment on above: Performed By: #### L 501.2450, L500.3400, L500.2500 #### [facility] [address] [place], [address] CO2 [Moles/Vol] 22.0 mmol/L Normal 21.0-32.0 [facility] Comment on above: Performed By: #### L 501.2450, L500.3400, L500.2500 #### [facility] [address] [place], [address] Creatinine [Mass/Vol] 0.60 mg/dL Low 0.70-1.20 [facility] Comment on above: Performed By: #### L 501.2450, L500.3400, L500.2500 #### [facility] [address] [place], [address] ECRCL 142.90 ml/min Normal 50-250 [facility] Comment on above: Performed By: #### L 501.2450, L500.3400, L500.2500 #### [facility] [address] [place], [address] GAP 13 Normal 5-15 [facility] Comment on above: Performed By: #### L 501.2450, L500.3400, L500.2500 #### [facility] [address] [place], [address] GFR/1.73 sq M.predicted among non-blacks MDRD (S/P/Bld) [Vol rate/Area] 127 mL/min/{1.73_m2} Normal >60 [facility] Comment on above: Result Comment: mL/m in/1.73m2 CKD-EPI Creatinine Equation (2020) Performed By: #### L 501.2450, L500.3400, L500.2500 #### [facility] [address] [place], [address] Glucose [Mass/Vol] 93 mg/dL Normal 70-99 [facility] Comment on above: Performed By: #### L 501.2450, L500.3400, L500.2500 #### [facility] [address] [place], [address] Potassium [Moles/Vol] 3.4 mmol/L Normal 3.3-5.1 [facility] Comment on above: Performed By: #### L 501.2450, L500.3400, L500.2500 #### [facility] [address] [place], [address] Sodium [Moles/Vol] 137 mmol/L Normal 133-145 [facility] Comment on above: Performed By: #### L 501.2450, L500.3400, L500.2500 #### [facility] [address] [place], [address] Urea nitrogen [Mass/Vol] 7 mg/dL Normal 4-19 [facility] Comment on above: Performed By: #### L 501.2450, L500.3400, L500.2500 #### [facility] [address] [place], [address] CBC W/Diff, Automatedon 10-1 Absolute Lymph 1.65 X10 3/uL Normal 0.83-4.51 [facility] Comment on above: Performed By: #### L 501.2450, L500.3400, L500.2500 #### [facility] [address] [place], [address] Absolute Neut 7.6 X10 3/uL Normal 2.0-7.7 [facility] Comment on above: Performed By: #### L 501.2450, L500.3400, L500.2500 #### [facility] [address] [place], [address] Basophils/100 WBC (Bld) 0.1 % Normal 0-1 [facility] Comment on above: Performed By: #### L 501.2450, L500.3400, L500.2500 #### [facility] [address] [place], [address] Eosinophils/100 WBC (Bld) 0.3 % Normal 0-5 [facility] Comment on above: Performed By: #### L 501.2450, L500.3400, L500.2500 #### [facility] [address] [place], [address] Erythrocyte distribution width (RBC) [Ratio] 13.9 % Normal 11.6-14.6 [facility] Comment on above: Performed By: #### L 501.2450, L500.3400, L500.2500 #### [facility] [address] [place], [address] Hematocrit (Bld) [Volume fraction] 32.1 % Low 37-47 [facility] Comment on above: Performed By: #### L 501.2450, L500.3400, L500.2500 #### [facility] [address] [place], [address] Hemoglobin (Bld) [Mass/Vol] 11.4 g/dL Low 12.0-15.0 [facility] Comment on above: Performed By: #### L 501.2450, L500.3400, L500.2500 #### [facility] [address] [place], [address] IG% 0.700 Normal 0.0-0.9 [facility] Comment on above: Result Comment: IG% - Immature Granulocytes (promyelocytes, myelocytes and metamyelocytes) > 1% indicates that a LEFT SHIFT is Present. Performed By: #### L 501.2450, L500.3400, L500.2500 #### [facility] [address] [place], [address] Lymphocytes/100 WBC (Bld) 16.5 % Low 19-41 [facility] Comment on above: Performed By: #### L 501.2450, L500.3400, L500.2500 #### [facility] [address] [place], [address] MCH (RBC) [Entitic mass] 32.6 pg High 27.0-32.0 [facility] Comment on above: Performed By: #### L 501.2450, L500.3400, L500.2500 #### [facility] [address] [place], [address] MCHC (RBC) [Mass/Vol] 35.5 g/dL Normal 32-36 [facility] Comment on above: Performed By: #### L 501.2450, L500.3400, L500.2500 #### [facility] [address] [place], [address] MCV (RBC) [Entitic vol] 91.7 fL Normal 81-99 [facility] Comment on above: Performed By: #### L 501.2450, L500.3400, L500.2500 #### [facility] [address] [place], [address] Monocytes/100 WBC (Bld) 6.3 % Normal 0-10 [facility] Comment on above: Performed By: #### L 501.2450, L500.3400, L500.2500 #### [facility] [address] [place], [address] Neutrophils/100 WBC (Bld) 76.1 % High 47-70 [facility] Comment on above: Performed By: #### L 501.2450, L500.3400, L500.2500 #### [facility] [address] [place], [address] Nucleated RBC (Bld) [#/Vol] 0 10*3/uL Normal 0-5 [facility] Comment on above: Performed By: #### L 501.2450, L500.3400, L500.2500 #### [facility] [address] [place], [address] Platelet mean volume (Bld) [Entitic vol] 10.4 fL Normal 6.2-12.0 [facility] Comment on above: Performed By: #### L 501.2450, L500.3400, L500.2500 #### [facility] [address] [place], [address] Platelets (Bld) [#/Vol] 204 10*3/uL Normal 150-450 [facility] Comment on above: Performed By: #### L 501.2450, L500.3400, L500.2500 #### [facility] [address] [place], [address] RBC (Bld) [#/Vol] 3.50 10*6/uL Low 4.2-5.4 [facility] Comment on above: Performed By: #### L 501.2450, L500.3400, L500.2500 #### [facility] [address] [place], [address] RDW SD 46.3 fl High 35.1-43.9 [facility] Comment on above: Performed By: #### L 501.2450, L500.3400, L500.2500 #### [facility] [address] [place], [address] WBC (Bld) [#/Vol] 10.0 10*3/uL Normal 4.4-11.0 [facility] Comment on above: Performed By: #### L 501.2450, L500.3400, L500.2500 #### [facility] [address] [place], [address] CTA Chest W/WO Contraston CTA Chest W/WO Contrast [facility] Imaging Services [address] [place] [address] CTA Chest W/WO Contrast MR#: [id number] Acct: [id number] Name: LUZ OLIVEIRA Rep #: [id number] : 2000 F 24 From: Johnny Brooks MD PCP: Care Physician,No Primary Status: REG ER Study: CTA Chest W/WO Contrast Date of Exam: 07/29/25 Exam# [id number] Ordering Dr: José Manuel Major MD PROCEDURE: [...] to evaluate for continued stability. Reading Location: [facility] CC: Dr. 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, [address] Emergency Department Summary on 07-29-2025 Emergency Department Summary [facility] Medical Records Department [address] [place] [address] Emergency Department Summary 07/29/25 MR#: [id number] Acct: [id number] Name: LZU OLIVEIRA Rep #: [id number] : 2000 24 From: José Manuel Major [...] a miscarriage. Currently 25 weeks . 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 qmilku-bpqzhti-jaqde reflux Home Medications ???Medication ???Instructions ???Recorded ???Last Taken ???Type sgyuihts-jef-Tt-FA 1 mg 1 tab PO DAILY 08/09/22 [...] of recurrent miscarriages Father Hypertension Surgical History [place] teeth removed Social History adopted: No household members: spouse and children housing: house number of children: 1 current occupation: [employer] current occupational exposures/hazards: No pets and animals: [...] 3-4 times per week duration: 15-30 minutes/day kalpaan/latter day: Voodoo seatbelt use: always do you feel safe at home: Yes 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 [...] JVD. Chandni (more content not included)... Normal [facility] L501.4021on 07-29-2025 Trop T High Sen < 6 Normal <=14 [facility] Comment on above: Performed By: #### L 501.2450, L500.3400, L500.2500 #### [facility] [address] [facility] [place], [place], [id number] Lipaseon 07-29-2025 Lipase [Catalytic activity/Vol] 19 U/L Normal 13-75 [facility] Comment on above: Result Comment: Lisa paez note: LIPASE revised reference range effective 23. New Lipase methodology. Expected to produce lower values than the previous assay method. NEW Reference Range: 13 - 75 U/L Performed By: #### L 501.2450, L500.3400, L500.2500 #### [facility] [address] [facility] [place], [place], [id number] Liver Profileon 07-29-2025 Albumin [Mass/Vol] 3.7 g/dL Normal 3.5-5.0 [facility] Comment on above: Performed By: #### L 501.2450, L500.3400, L500.2500 #### [facility] [address] [place], [address] ALK PHOS 65 U/L Normal 35-104 [facility] Comment on above: Performed By: #### L 501.2450, L500.3400, L500.2500 #### [facility] [address] [place], [address] ALT [Catalytic activity/Vol] 12 U/L Normal <=34 [facility] Comment on above: Performed By: #### L 501.2450, L500.3400, L500.2500 #### [facility] [address] [place], [address] AST [Catalytic activity/Vol] 17 U/L Normal <=31 [facility] Comment on above: Performed By: #### L 501.2450, L500.3400, L500.2500 #### [facility] [address] [place], [address] Bilirubin [Mass/Vol] 0.26 mg/dL Normal 0.00-1.30 [facility] Comment on above: Performed By: #### L 501.2450, L500.3400, L500.2500 #### [facility] [address] [place], [address] Bilirubin.direct [Mass/Vol] 0.11 mg/dL Normal 0.00-0.30 [facility] Comment on above: Performed By: #### L 501.2450, L500.3400, L500.2500 #### [facility] [address] [place], [address] Globulin (S) [Mass/Vol] 2.6 g/dL Normal 2.2-4.2 [facility] Comment on above: Performed By: #### L 501.2450, L500.3400, L500.2500 #### [facility] [address] [place], [address] T PROT 6.3 g/dL Normal 5.9-8.4 [facility] Comment on above: Performed By: #### L 501.2450, L500.3400, L500.2500 #### [facility] [address] [place], [address] Troponin T HS 2 HRon 025 Trop T High Sen Normal <=14 [facility] Comment on above: Result Comment: OKAY TO CANCEL PER ZAK RODRIGUEZ Performed By: #### L 501.2450, L500.3400, L500.2500 #### [facility] [address] [place], [address] Urinalysis, Completeon 07-29 EPI,SQUAMOUS 0-5 SEEN Normal 5-10 [facility] Comment on above: Order Comment: COLLE CTOR TO SPECIFY Performed By: #### L 501.2450, L500.3400, L500.2500 #### [facility] [address] [place], [address] RBC 5-10 SEEN Normal 0-5 [facility] Comment on above: Order Comment: COLLE CTOR TO SPECIFY Performed By: #### L 501.2450, L500.3400, L500.2500 #### [facility] [address] [place], [address] BACTERIA 3+ /hpf Normal None Seen [facility] Comment on above: Order Comment: COLLE CTOR TO SPECIFY Performed By: #### L 501.2450, L500.3400, L500.2500 #### [facility] [address] [place], [address] Mucus Ql (Urine sed) 0 SEEN Normal [facility] Comment on above: Order Comment: COLLE CTOR TO SPECIFY Performed By: #### L 501.2450, L500.3400, L500.2500 #### [facility] [address] [place], [address] WBC 0 SEEN Normal 0-5 [facility] Comment on above: Order Comment: COLLE CTOR TO SPECIFY Performed By: #### L 501.2450, L500.3400, L500.2500 #### [facility] [address] [place], [address] CBC W/Diff, Automatedon 06-12 Absolute Lymph 1.09 X10 3/uL Normal 0.83-4.51 [facility] Comment on above: Performed By: #### L 501.2450, L500.3400, L500.2500 #### [facility] [address] [place], [address] Absolute Neut 6.9 X10 3/uL Normal 2.0-7.7 [facility] Comment on above: Performed By: #### L 501.2450, L500.3400, L500.2500 #### [facility] [address] [place], [address] Basophils/100 WBC (Bld) 0.1 % Normal 0-1 [facility] Comment on above: Performed By: #### L 501.2450, L500.3400, L500.2500 #### [facility] [address] [place], [address] Eosinophils/100 WBC (Bld) 0.2 % Normal 0-5 [facility] Comment on above: Performed By: #### L 501.2450, L500.3400, L500.2500 #### [facility] [address] [place], [address] Erythrocyte distribution width (RBC) [Ratio] 14.1 % Normal 11.6-14.6 [facility] Comment on above: Performed By: #### L 501.2450, L500.3400, L500.2500 #### [facility] [address] [place], [address] Hematocrit (Bld) [Volume fraction] 31.9 % Low 37-47 [facility] Comment on above: Performed By: #### L 501.2450, L500.3400, L500.2500 #### [facility] [address] [place], [address] Hemoglobin (Bld) [Mass/Vol] 11.6 g/dL Low 12.0-15.0 [facility] Comment on above: Performed By: #### L 501.2450, L500.3400, L500.2500 #### [facility] [address] [place], [address] IG% 0.600 Normal 0.0-0.9 [facility] Comment on above: Result Comment: IG% - Immature Granulocytes (promyelocytes, myelocytes and metamyelocytes) > 1% indicates that a LEFT SHIFT is Present. Performed By: #### L 501.2450, L500.3400, L500.2500 #### [facility] [address] [place], [address] Lymphocytes/100 WBC (Bld) 12.8 % Low 19-41 [facility] Comment on above: Performed By: #### L 501.2450, L500.3400, L500.2500 #### [facility] [address] [place], [address] MCH (RBC) [Entitic mass] 32.6 pg High 27.0-32.0 [facility] Comment on above: Performed By: #### L 501.2450, L500.3400, L500.2500 #### [facility] [address] [place], [address] MCHC (RBC) [Mass/Vol] 36.4 g/dL High 32-36 [facility] Comment on above: Performed By: #### L 501.2450, L500.3400, L500.2500 #### [facility] [address] [place], [address] MCV (RBC) [Entitic vol] 89.6 fL Normal 81-99 [facility] Comment on above: Performed By: #### L 501.2450, L500.3400, L500.2500 #### [facility] [address] [place], [address] Monocytes/100 WBC (Bld) 4.7 % Normal 0-10 [facility] Comment on above: Performed By: #### L 501.2450, L500.3400, L500.2500 #### [facility] [address] [place], [address] Neutrophils/100 WBC (Bld) 81.6 % High 47-70 [facility] Comment on above: Performed By: #### L 501.2450, L500.3400, L500.2500 #### [facility] [address] [place], [address] Nucleated RBC (Bld) [#/Vol] 0 10*3/uL Normal 0-5 [facility] Comment on above: Performed By: #### L 501.2450, L500.3400, L500.2500 #### [facility] [address] [place], [address] Platelet mean volume (Bld) [Entitic vol] 10.1 fL Normal 6.2-12.0 [facility] Comment on above: Performed By: #### L 501.2450, L500.3400, L500.2500 #### [facility] [address] [place], [address] Platelets (Bld) [#/Vol] 180 10*3/uL Normal 150-450 [facility] Comment on above: Performed By: #### L 501.2450, L500.3400, L500.2500 #### [facility] [address] [place], [address] RBC (Bld) [#/Vol] 3.56 10*6/uL Low 4.2-5.4 [facility] Comment on above: Performed By: #### L 501.2450, L500.3400, L500.2500 #### [facility] [address] [place], [address] RDW SD 45.9 fl High 35.1-43.9 [facility] Comment on above: Performed By: #### L 501.2450, L500.3400, L500.2500 #### [facility] [address] [place], [address] WBC (Bld) [#/Vol] 8.5 10*3/uL Normal 4.4-11.0 [facility] Comment on above: Performed By: #### L 501.2450, L500.3400, L500.2500 #### [facility] [address] [place], [address] Comprehensive Metabolic Prof [facility] 07-09-2025 Albumin [Mass/Vol] 3.9 g/dL Normal 3.5-5.0 [facility] Comment on above: Performed By: #### L 501.2450, L500.3400, L500.2500 #### [facility] [address] [place], [address] Albumin/Globulin [Mass ratio] 1.4 {ratio} Normal 0.9-2.4 [facility] Comment on above: Performed By: #### L 501.2450, L500.3400, L500.2500 #### [facility] [address] [place], [address] ALK PHOS 65 U/L Normal 35-104 [facility] Comment on above: Performed By: #### L 501.2450, L500.3400, L500.2500 #### [facility] [address] [place], [address] ALT [Catalytic activity/Vol] 20 U/L Normal <=34 [facility] Comment on above: Performed By: #### L 501.2450, L500.3400, L500.2500 #### [facility] [address] [place], [address] AST [Catalytic activity/Vol] 23 U/L Normal <=31 [facility] Comment on above: Performed By: #### L 501.2450, L500.3400, L500.2500 #### [facility] [address] [place], [address] Bilirubin [Mass/Vol] 0.35 mg/dL Normal 0.00-1.30 [facility] Comment on above: Performed By: #### L 501.2450, L500.3400, L500.2500 #### [facility] [address] [place], [address] BUN/CRE 10.5 RATIO Normal 10-20 [facility] Comment on above: Performed By: #### L 501.2450, L500.3400, L500.2500 #### [facility] [address] [place], [address] Calcium [Mass/Vol] 9.1 mg/dL Normal 7.6-11.0 [facility] Comment on above: Performed By: #### L 501.2450, L500.3400, L500.2500 #### [facility] [address] [place], [address] Chloride [Moles/Vol] 105 mmol/L Normal 98-108 [facility] Comment on above: Performed By: #### L 501.2450, L500.3400, L500.2500 #### [facility] [address] [place], [address] CO2 [Moles/Vol] 18.7 mmol/L Low 21.0-32.0 [facility] Comment on above: Performed By: #### L 501.2450, L500.3400, L500.2500 #### [facility] [address] [place], [address] Creatinine [Mass/Vol] 0.60 mg/dL Low 0.70-1.20 [facility] Comment on above: Performed By: #### L 501.2450, L500.3400, L500.2500 #### [facility] [address] [place], [address] GAP 14 Normal 5-15 [facility] Comment on above: Performed By: #### L 501.2450, L500.3400, L500.2500 #### [facility] [address] [place], [address] GFR/1.73 sq M.predicted among non-blacks MDRD (S/P/Bld) [Vol rate/Area] 128 mL/min/{1.73_m2} Normal >60 [facility] Comment on above: Result Comment: mL/m in/1.73m2 CKD-EPI Creatinine Equation (2020) Performed By: #### L 501.2450, L500.3400, L500.2500 #### [facility] [address] [place], [address] Globulin (S) [Mass/Vol] 2.8 g/dL Normal 2.2-4.2 [facility] Comment on above: Performed By: #### L 501.2450, L500.3400, L500.2500 #### [facility] [address] [place], [address] Glucose [Mass/Vol] 91 mg/dL Normal 70-99 [facility] Comment on above: Performed By: #### L 501.2450, L500.3400, L500.2500 #### [facility] [address] [place], [address] Potassium [Moles/Vol] 3.7 mmol/L Normal 3.3-5.1 [facility] Comment on above: Performed By: #### L 501.2450, L500.3400, L500.2500 #### [facility] [facility] [address] [place], [address] Sodium [Moles/Vol] 137 mmol/L Normal 133-145 [facility] Comment on above: Performed By: #### L 501.2450, L500.3400, L500.2500 #### [facility] [address] [place], [address] T PROT 6.7 g/dL Normal 5.9-8.4 [facility] Comment on above: Performed By: #### L 501.2450, L500.3400, L500.2500 #### [facility] [address] [place], [address] Urea nitrogen [Mass/Vol] 6 mg/dL Normal 4-19 [facility] Comment on above: Performed By: #### L 501.2450, L500.3400, L500.2500 #### [facility] [address] [place], [address] Pellet Press Operator Office Visit Reporton 07-09-2025 Pellet Press Operator Office Visit Report [facility]'s [address], [address] [place] [address] OFFICE VISIT Date of Service: 07/09/25 MR#: [id number] Acct: [id number] Name: LUZ OLIVEIRA Rep #: [id number] : 2000 Provider: Dr. Geraldine storey MD Age/Sex: 24/F [place] [facility] [place]: Signed Intake Vital Signs 07/03/25 15:35 07/09/25 09:29 07/09/25 09:30 Height 5 ft 1 in 5 ft 1 in 5 ft 1 in Weight: 185 lb 4 oz 184 lb 4 oz BMI 34.9 34.8 BP 109/74 107/76 Intake Visit Reasons: DISCUSS CONCERNS * OK PER Supervisor Cutting And Boning Required: No Is patient in pain?: No Allergies escitalopram (From Lexapro) Adverse Reaction (Severe, Verified 07/09/25 09:30) SUICIDAL citalopram hydrobromide (From Celexa) Adverse Reaction (Verified 07/09/25 09:30) Other Medications ???Medication ???Instructions ???Recorded ???Confirmed ???Type ffhyealk-qoc-Ey-FA 1 mg 1 tab PO DAILY 08/09/22 [...] hypertension Obesity affecting 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 fsqiea-qmkhcfq-cvdga reflux Surgical History [place] teeth removed Family History Grandmother Breast cancer Brain cancer Grandfather CVA (cerebral vascular accident) Mother Diabetes Heart failure MRSA carrier History of recurrent miscarriages Father Hypertension Social History adopted: No household members: spouse and children housing: house number of children: 1 current occupation: [employer] current occupational exposures/hazards: No pets and animals: [...] 3-4 times per week duration: 15-30 minutes/day kalpana/latter day: Voodoo seatbelt use: always do you feel safe at home: Yes 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 Normal [facility] Protein+Creatinine Ratio,Uri neon 07-09-2025 PROT:CRE RATIO 283 mg/g CRE High 0-200 [facility] Comment on above: Performed By: #### L 501.0900 #### [facility] [address] [place], [address] Protein (U) [Mass/Vol] 73.9 mg/dL High 0.0-12.0 [facility] Comment on above: Performed By: #### L 501.0900 #### [facility] [address] [place], [address] UR CREAT 261.00 mg/dL High 28.00-217.00 [facility] Comment on above: Performed By: #### L 501.0900 #### [facility] [address] [place], [address] Wound Cultureon 07-06-2025 WC Lesion of abdomen Possible skin contamination, further Identification and sensitivity will be performed only by physician's request. Coag Negative Staph Amount Growth 2+ Normal [facility] Comment on above: Performed By: #### L 501.2450, L500.3400, L500.2500 #### [facility] [address] [place], [address] Gram Stainon 07-04-2025 GS Lesion of abdomen Gram Stain 1+ White Blood Cells No organisms seen Normal [facility] Comment on above: Performed By: #### L 501.2450, L500.3400, L500.2500 #### [facility] [address] [place], [address] Pellet Press Operator Office Visit Reporton 07-03-2025 Pellet Press Operator Office Visit Report [facility] [address], [address] [place] [address] OFFICE VISIT Date of Service: 07/03/25 MR#: [id number] Acct: [id number] Name: LUZ OLIVEIRA Rep #: [id number] : 2000 Provider: JARAD moctezuma Age/Sex: 24/F Location[place] [facility] [place] Status: Signed Intake Vital Signs 05/07/25 14:40 06/06/25 13:39 07/03/25 15:35 Height 5 ft 1 in 5 ft 1 in 5 ft 1 in Weight: 185 lb 4 oz BMI 34.9 BP 109/74 Intake Visit Reasons: 21wk ob Chief Complaint: 21 Week OB Supervisor Cutting And Boning Required: No Is patient in pain?: No Allergies escitalopram (From Lexapro) Adverse Reaction (Severe, Verified 07/03/25 15:38) SUICIDAL citalopram hydrobromide (From Celexa) Adverse Reaction (Verified 07/03/25 15:38) Other Medications ???Medication ???Instructions ???Recorded ???Confirmed ???Type wpzwujqu-nhk-Nj-FA 1 mg 1 tab PO DAILY 08/09/22 [...] hypertension Obesity affecting 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 opqddv-xtvkoze-zeczk reflux Surgical History [place] teeth removed Family History Grandmother Breast cancer Brain cancer Grandfather CVA (cerebral vascular accident) Mother Diabetes Heart failure MRSA carrier History of recurrent miscarriages Father Hypertension Social History adopted: No household members: spouse and children housing: house number of children: 1 current occupation: [employer] current occupational exposures/hazards: No pets and animals: [...] 3-4 times per week duration: 15-30 minutes/day kalpana/latter day: Voodoo seatbelt use: always do you feel safe at home: Yes 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 Date Name GA/Weeks Outcome Route Bth Weight Gen Labor Lgth Anesthesia Del Locatn Provider FOB 10/11/18 Chemical 4 spontaneous 03/30/23 Amanda 39 live - full term vacuum 6lbs 1oz Female epidural [facility] Delivery Date: 03/30/23 Last Updated by: [...] ??-???- 9w (more content not included)... Normal [facility] Progress Noteon 06-20-2025 Director Mission Authentication Interface Message Text [facility] CONSULT Referring/Requesting Provider: Rama Avalos DO PCP: [facility] MD INDICATION FOR CONSULT: maternal [...] disorder Chronic kidney disease kidney stones Congenital wvtpuo-kursmmb-kiuuh reflux Depression Elevated liver enzymes Headache in [...] repeat LFTs are elevated, refer to local day haul or farm charter bus driver for further evaluation. Frequent UTI 06/20/2025 - [...] hemorrhage, stillbirth, anomalies, delivery and postcesarean complications. [place] of medicine recommend weight gain in : [...] findings. Ame (more content not included)... Normal [facility] Pellet Press Operator Office Visit Reporton 06-06-2025 Pellet Press Operator Office Visit Report [facility] [address], [address] [place] [address] OFFICE VISIT Date of Service: 06/06/25 MR#: [id number] Acct: [id number] Name: LUZ OLIVEIRA Rep #: [id number] : 2000 Provider: Dr. Rama Trammell DO Age/Sex: 24/F Location: [facility] [place] Status: Signed Intake Vital Signs 04/09/25 10:40 05/30/25 09:28 06/06/25 13:37 06/06/25 13:39 Height 5 ft 1 in 5 ft 1 in 5 ft 1 in 5 ft 1 in Weight: 183 lb 5 oz BMI 34.6 BP 112/68 Intake Visit Reasons: 17 wk ob Supervisor Cutting And Boning Required: No Is patient in pain?: No Allergies escitalopram (From Lexapro) Adverse Reaction (Severe, Verified 06/06/25 13:36) SUICIDAL citalopram hydrobromide (From Celexa) Adverse Reaction (Verified 06/06/25 13:36) Other Medications ???Medication ???Instructions ???Recorded ???Confirmed ???Type pqfizbmd-kua-Pi-FA 1 mg 1 tab PO DAILY 08/09/22 06/06/25 H istory tablet metoclopramide HCl 5 mg tablet 5 mg PO QACHS #60 tabs 04/19/25 Rx (Reglan) Last Menstrual Period: 02/02/25 Zika: Zika virus screening: Negative : No PFSH PFSH Medical History Fatty liver Renal atrophy, left Elevated liver enzymes Heart palpitations History of gestational hypertension Obesity affecting 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 rdjnmk-hxkazot-aorso reflux Surgical History [place] teeth removed Family History Grandmother Breast cancer Brain cancer Grandfather CVA (cerebral vascular accident) Mother Diabetes Heart failure MRSA carrier History of recurrent miscarriages Father Hypertension Social History adopted: No household members: spouse and children housing: house number of children: 1 current occupation: [employer] current occupational exposures/hazards: No pets and animals: [...] 3-4 times per week duration: 15-30 minutes/day kalpana/latter day: Voodoo seatbelt use: always do you feel safe at home: Yes 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 Date Name GA/Weeks Outcome Route Bth Weight Gen Labor Lgth Anesthesia Del Locatn Provider FOB 10/11/18 Chemical 4 spontaneous 03/30/23 Amanda 39 live - full term vacuum 6lbs 1oz Female epidural [facility] Delivery Date: 03/30/23 Last Updated by: [...] ??-???- Negat (more content not included)... Normal [facility] Urine Cultureon 06-02-2025 URC #1,2 Gram positive francheska suggestive of a diphtheroid. Susceptibility not normally performed on this organism Urine Culture Urine Culture Urine Culture Corynebacterium amycolatum Reynolds Count 11,000-25,000 Corynebacterium minutissimum Corynebacterium minutissimum Normal [facility] Comment on above: Performed By: #### L 501.2450, L500.3400, L500.2500 #### [facility] [address] [place], [address] Cardiology Visit Reporton Cardiology Visit Report [facility] [address] [place], [place] [id number] OFFICE VISIT Date of Service: 05/30/25 MR#: [id number] Acct: [id number] Name: LUZ OLIVEIRA Rep #: [id number] : 2000 Provider: Dr. Keven Alvarez MD Age/Sex: 24/F Location[place] [facility] Status: Signed HPI HPI History of Present [...] Source Monitor Intake Visit Reasons: PALP ([place]) Supervisor Cutting And Boning Required: No Accompanied by: Self Is patient in pain?: No Allergies escitalopram (From Lexapro) Adverse Reaction (Severe, Verified 05/30/25 09:34) SUICIDAL citalopram hydrobromide (From Celexa) Adverse Reaction (Verified 05/30/25 09:34) Other Medications ???Medication ???Instructions ???Recorded ???Confirmed ???Type sutimpty-cyh-Kt-FA 1 mg 1 tab PO DAILY 08/09/22 05/30/25 H istory tablet metoclopramide HCl 5 mg tablet 5 mg PO QACHS #60 tabs 04/19/25 Rx (Reglan) PFSH Medical History Fatty liver Renal atrophy, left Elevated liver enzymes Heart palpitations History of gestational hypertension Obesity affecting 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 kigzli-rrjxnty-xnzyp reflux Surgical History [place] teeth removed Family History Grandmother Breast cancer Brain cancer Grandfather CVA (cerebral vascular accident) Mother Diabetes Heart failure MRSA carrier History of recurrent miscarriages Father Hypertension Social History adopted: No household members: spouse and children housing: house number of children: 1 current occupation: [employer] current occupational exposures/hazards: No pets and animals: [...] 3-4 times per week duration: 15-30 minutes/day kalpana/latter day: Voodoo seatbelt use: always do you feel safe at home: Yes 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 Normal [facility] Comprehensive Metabolic Prof ilon 05-30-2025 Albumin [Mass/Vol] 4.0 g/dL Normal 3.5-5.0 [facility] Comment on above: Performed By: #### L 500.4050 #### [facility] [address] [place], [address] Albumin/Globulin [Mass ratio] 1.5 {ratio} Normal 0.9-2.4 [facility] Comment on above: Performed By: #### L 500.4050 #### [facility] [address] [place], [address] ALK PHOS 56 U/L Normal 35-104 [facility] Comment on above: Performed By: #### L 500.4050 #### [facility] [address] [place], [address] ALT [Catalytic activity/Vol] 35 U/L Normal <=34 [facility] Comment on above: Performed By: #### L 500.4050 #### [facility] [address] [place], [address] AST [Catalytic activity/Vol] 29 U/L Normal <=31 [facility] Comment on above: Performed By: #### L 500.4050 #### [facility] [address] [place], [address] Bilirubin [Mass/Vol] 0.36 mg/dL Normal 0.00-1.30 [facility] Comment on above: Performed By: #### L 500.4050 #### [facility] [address] [place], [address] BUN/CRE 10.5 RATIO Normal 10-20 [facility] Comment on above: Performed By: #### L 500.4050 #### [facility] [address] [place], [address] Calcium [Mass/Vol] 9.3 mg/dL Normal 7.6-11.0 [facility] Comment on above: Performed By: #### L 500.4050 #### [facility] [address] [place], [address] Chloride [Moles/Vol] 104 mmol/L Normal 98-108 [facility] Comment on above: Performed By: #### L 500.4050 #### [facility] [address] [place], [address] CO2 [Moles/Vol] 20.0 mmol/L Low 21.0-32.0 [facility] Comment on above: Performed By: #### L 500.4050 #### [facility] [address] [place], [address] Creatinine [Mass/Vol] 0.57 mg/dL Low 0.70-1.20 [facility] Comment on above: Performed By: #### L 500.4050 #### [facility] [address] [place], [address] GAP 14 Normal 5-15 [facility] Comment on above: Performed By: #### L 500.4050 #### [facility] [address] [place], [address] GFR/1.73 sq M.predicted among non-blacks MDRD (S/P/Bld) [Vol rate/Area] 129 mL/min/{1.73_m2} Normal >60 [facility] Comment on above: Result Comment: mL/m in/1.73m2 CKD-EPI Creatinine Equation (2020) Performed By: #### L 500.4050 #### [facility] [address] [place], [address] Globulin (S) [Mass/Vol] 2.6 g/dL Normal 2.2-4.2 [facility] Comment on above: Performed By: #### L 500.4050 #### [facility] [address] [place], [address] Glucose [Mass/Vol] 92 mg/dL Normal 70-99 [facility] Comment on above: Performed By: #### L 500.4050 #### [facility] [address] [place], [address] Potassium [Moles/Vol] 3.8 mmol/L Normal 3.3-5.1 [facility] Comment on above: Performed By: #### L 500.4050 #### [facility] [address] [place], [address] Sodium [Moles/Vol] 138 mmol/L Normal 133-145 [facility] Comment on above: Performed By: #### L 500.4050 #### [facility] [address] [place], [address] T PROT 6.6 g/dL Normal 5.9-8.4 [facility] Comment on above: Performed By: #### L 500.4050 #### [facility] [address] [place], [address] Urea nitrogen [Mass/Vol] 6 mg/dL Normal 4-19 [facility] Comment on above: Performed By: #### L 500.4050 #### [facility] [address] [place], [address] Thyroid Stim Hormone (TSH)on 05-30-2025 TSH 0.631 uIU/mL Normal 0.300-4.200 [facility] Comment on above: Performed By: #### L 501.2450, L500.3400, L500.2500 #### [facility] [address] [place], [address] CBC W/Diff, Automatedon 08-0 4-2024 Absolute Lymph 1.81 X10 3/uL Normal 0.83-4.51 [facility] Comment on above: Performed By: #### L 501.0900 #### [facility] [address] [place], [address] Absolute Neut 5.3 X10 3/uL Normal 2.0-7.7 [facility] Comment on above: Performed By: #### L 501.0900 #### [facility] [address] [place], [address] Basophils/100 WBC (Bld) 0.1 % Normal 0-1 [facility] Comment on above: Performed By: #### L 501.0900 #### [facility] [address] [place], [address] Eosinophils/100 WBC (Bld) 0.3 % Normal 0-5 [facility] Comment on above: Performed By: #### L 501.0900 #### [facility] [address] [place], [address] Erythrocyte distribution width (RBC) [Ratio] 12.9 % Normal 11.6-14.6 [facility] Comment on above: Performed By: #### L 501.0900 #### [facility] [address] [place], [address] Hematocrit (Bld) [Volume fraction] 36.8 % Low 37-47 [facility] Comment on above: Performed By: #### L 501.0900 #### [facility] [address] [place], [address] Hemoglobin (Bld) [Mass/Vol] 13.0 g/dL Normal 12.0-15.0 [facility] Comment on above: Performed By: #### L 501.0900 #### [facility] [address] [place], [address] IG% 0.400 Normal 0.0-0.9 [facility] Comment on above: Result Comment: IG% - Immature Granulocytes (promyelocytes, myelocytes and metamyelocytes) > 1% indicates that a LEFT SHIFT is Present. Performed By: #### L 501.0900 #### [facility] [address] [place], [address] Lymphocytes/100 WBC (Bld) 23.5 % Normal 19-41 [facility] Comment on above: Performed By: #### L 501.0900 #### [facility] [address] [place], [address] MCH (RBC) [Entitic mass] 31.0 pg Normal 27.0-32.0 [facility] Comment on above: Performed By: #### L 501.0900 #### [facility] [address] [place], [address] MCHC (RBC) [Mass/Vol] 35.3 g/dL Normal 32-36 [facility] Comment on above: Performed By: #### L 501.0900 #### [facility] [address] [place], [address] MCV (RBC) [Entitic vol] 87.6 fL Normal 81-99 [facility] Comment on above: Performed By: #### L 501.0900 #### [facility] [address] [place], [address] Monocytes/100 WBC (Bld) 6.7 % Normal 0-10 [facility] Comment on above: Performed By: #### L 501.0900 #### [facility] [address] [place], [address] Neutrophils/100 WBC (Bld) 69.0 % Normal 47-70 [facility] Comment on above: Performed By: #### L 501.0900 #### [facility] [address] [place], [address] Nucleated RBC (Bld) [#/Vol] 0 10*3/uL Normal 0-5 [facility] Comment on above: Performed By: #### L 501.0900 #### [facility] [address] [place], [address] Platelet mean volume (Bld) [Entitic vol] 10.3 fL Normal 6.2-12.0 [facility] Comment on above: Performed By: #### L 501.0900 #### [facility] [address] [place], [address] Platelets (Bld) [#/Vol] 198 10*3/uL Normal 150-450 [facility] Comment on above: Performed By: #### L 501.0900 #### [facility] [address] [place], [address] RBC (Bld) [#/Vol] 4.20 10*6/uL Normal 4.2-5.4 [facility] Comment on above: Performed By: #### L 501.0900 #### [facility] [address] [place], [address] RDW SD 39.9 fl Normal 35.1-43.9 [facility] Comment on above: Performed By: #### L 501.0900 #### [facility] [address] [place], [address] WBC (Bld) [#/Vol] 7.7 10*3/uL Normal 4.4-11.0 [facility] Comment on above: Performed By: #### L 501.0900 #### [facility] [address] [place], [address] Comprehensive Metabolic Prof ilon 05-14-2025 Albumin [Mass/Vol] 4.2 g/dL Normal 3.5-5.0 [facility] Comment on above: Performed By: #### L 501.0900 #### [facility] [address] [place], [address] Albumin/Globulin [Mass ratio] 1.5 {ratio} Normal 0.9-2.4 [facility] Comment on above: Performed By: #### L 501.0900 #### [facility] [address] [place], [address] ALK PHOS 61 U/L Normal 35-104 [facility] Comment on above: Performed By: #### L 501.0900 #### [facility] [address] [place], [address] ALT [Catalytic activity/Vol] 47 U/L High <=34 [facility] Comment on above: Performed By: #### L 501.0900 #### [facility] [address] [place], [address] AST [Catalytic activity/Vol] 36 U/L High <=31 [facility] Comment on above: Performed By: #### L 501.0900 #### [facility] [address] [place], [address] Bilirubin [Mass/Vol] 0.52 mg/dL Normal 0.00-1.30 [facility] Comment on above: Performed By: #### L 501.0900 #### [facility] [address] [place], [address] BUN/CRE 10.7 RATIO Normal 10-20 [facility] Comment on above: Performed By: #### L 501.0900 #### [facility] [address] [place], [address] Calcium [Mass/Vol] 9.5 mg/dL Normal 7.6-11.0 [facility] Comment on above: Performed By: #### L 501.0900 #### [facility] [address] [place], [address] Chloride [Moles/Vol] 102 mmol/L Normal 98-108 [facility] Comment on above: Performed By: #### L 501.0900 #### [facility] [address] [place], [address] CO2 [Moles/Vol] 18.6 mmol/L Low 21.0-32.0 [facility] Comment on above: Performed By: #### L 501.0900 #### [facility] [address] [place], [address] Creatinine [Mass/Vol] 0.66 mg/dL Low 0.70-1.20 [facility] Comment on above: Performed By: #### L 501.0900 #### [facility] [address] [place], [address] GAP 16 High 5-15 [facility] Comment on above: Performed By: #### L 501.0900 #### [facility] [address] [place], [address] GFR/1.73 sq M.predicted among non-blacks MDRD (S/P/Bld) [Vol rate/Area] 125 mL/min/{1.73_m2} Normal >60 [facility] Comment on above: Result Comment: mL/m in/1.73m2 CKD-EPI Creatinine Equation (2020) Performed By: #### L 501.0900 #### [facility] [address] [place], [address] Globulin (S) [Mass/Vol] 2.8 g/dL Normal 2.2-4.2 [facility] Comment on above: Performed By: #### L 501.0900 #### [facility] [address] [place], [address] Glucose [Mass/Vol] 92 mg/dL Normal 70-99 [facility] Comment on above: Performed By: #### L 501.0900 #### [facility] [address] [place], [address] Potassium [Moles/Vol] 3.8 mmol/L Normal 3.3-5.1 [facility] Comment on above: Performed By: #### L 501.0900 #### [facility] [address] [place], [address] Sodium [Moles/Vol] 137 mmol/L Normal 133-145 [facility] Comment on above: Performed By: #### L 501.0900 #### [facility] [address] [place], [address] T PROT 7.0 g/dL Normal 5.9-8.4 [facility] Comment on above: Performed By: #### L 501.0900 #### [facility] [address] [place], [address] Urea nitrogen [Mass/Vol] 7 mg/dL Normal 4-19 [facility] Comment on above: Performed By: #### L 501.0900 #### [facility] [address] 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 Cutting And Boning Required: No Is patient in pain?: No Allergies escitalopram (From Lexapro) Adverse Reaction (Severe, Verified 05/14/25 14:48) SUICIDAL citalopram hydrobromide (From Celexa) Adverse Reaction (Verified 05/14/25 14:48) Other Medications ???Medication ???Instructions ???Recorded ???Confirmed ???Type hhevawrl-afe-Kw-FA 1 mg 1 tab PO DAILY 08/09/22 05/14/25 H istory tablet metoclopramide HCl 5 mg tablet 5 mg PO QACHS #60 tabs 04/19/25 Rx (Reglan) Last Menstrual Period: 02/02/25 Zika: Zika virus screening: Negative : No PFSH PFSH Medical History Congenital cnwmbw-aenyhbo-svgll reflux Surgical History [place] teeth removed Family History Grandmother Breast cancer Brain cancer Grandfather CVA (cerebral vascular accident) Mother Diabetes Heart failure MRSA carrier History of recurrent miscarriages Father Hypertension Social History adopted: No household members: spouse and children housing: house number of children: 1 current occupation: [employer] current occupational exposures/hazards: No pets and animals: [...] 3-4 times per week duration: 15-30 minutes/day kalpana/latter day: Voodoo seatbelt use: always do you feel safe at home: Yes 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 (more content not included)... Normal [facility] CBC W/Diff, Automatedon 07-2 Absolute Lymph 1.24 X10 3/uL Normal 0.83-4.51 [facility] Comment on above: Performed By: #### L 509.8002, L501.9985, L500.4050, L3890.6006, BTS, L100.0100, L3890.6301, L509.4006, L3890.6102 #### [facility] [address] [place], [place], [id number] Absolute Neut 6.2 X10 3/uL Normal 2.0-7.7 [facility] Comment on above: Performed By: #### L 509.8002, L501.9985, L500.4050, L3890.6006, BTS, L100.0100, L3890.6301, L509.4006, L3890.6102 #### [facility] [address] [place], [address] Basophils/100 WBC (Bld) 0.1 % Normal 0-1 [facility] Comment on above: Performed By: #### L 509.8002, L501.9985, L500.4050, L3890.6006, BTS, L100.0100, L3890.6301, L509.4006, L3890.6102 #### [facility] [address] [place], [address] Eosinophils/100 WBC (Bld) 0.1 % Normal 0-5 [facility] Comment on above: Performed By: #### L 509.8002, L501.9985, L500.4050, L3890.6006, BTS, L100.0100, L3890.6301, L509.4006, L3890.6102 #### [facility] [address] [place], [address] (593 Erythrocyte distribution width (RBC) [Ratio] 12.5 % Normal 11.6-14.6 [facility] Comment on above: Performed By: #### L 509.8002, L501.9985, L500.4050, L3890.6006, BTS, L100.0100, L3890.6301, L509.4006, L3890.6102 #### [facility] [address] [place], [address] Hematocrit (Bld) [Volume fraction] 36.6 % Low 37-47 [facility] Comment on above: Performed By: #### L 509.8002, L501.9985, L500.4050, L3890.6006, BTS, L100.0100, L3890.6301, L509.4006, L3890.6102 #### [facility] [address] [place], [address] Hemoglobin (Bld) [Mass/Vol] 12.8 g/dL Normal 12.0-15.0 [facility] Comment on above: Performed By: #### L 509.8002, L501.9985, L500.4050, L3890.6006, BTS, L100.0100, L3890.6301, L509.4006, L3890.6102 #### [facility] [address] [place], [address] IG% 0.500 Normal 0.0-0.9 [facility] Comment on above: Result Comment: IG% - Immature Granulocytes (promyelocytes, myelocytes and metamyelocytes) > 1% indicates that a LEFT SHIFT is Present. Performed By: #### L 509.8002, L501.9985, L500.4050, L3890.6006, BTS, L100.0100, L3890.6301, L509.4006, L3890.6102 #### [facility] [address] [place], [address] Lymphocytes/100 WBC (Bld) 15.8 % Low 19-41 [facility] Comment on above: Performed By: #### L 509.8002, L501.9985, L500.4050, L3890.6006, BTS, L100.0100, L3890.6301, L509.4006, L3890.6102 #### [facility] [address] [place], [address] MCH (RBC) [Entitic mass] 30.8 pg Normal 27.0-32.0 [facility] Comment on above: Performed By: #### L 509.8002, L501.9985, L500.4050, L3890.6006, BTS, L100.0100, L3890.6301, L509.4006, L3890.6102 #### [facility] [address] [place], [address] MCHC (RBC) [Mass/Vol] 35.0 g/dL Normal 32-36 [facility] Comment on above: Performed By: #### L 509.8002, L501.9985, L500.4050, L3890.6006, BTS, L100.0100, L3890.6301, L509.4006, L3890.6102 #### [facility] [address] [place], [address] MCV (RBC) [Entitic vol] 88.2 fL Normal 81-99 [facility] Comment on above: Performed By: #### L 509.8002, L501.9985, L500.4050, L3890.6006, BTS, L100.0100, L3890.6301, L509.4006, L3890.6102 #### [facility] [address] [facility] [place], [address] Monocytes/100 WBC (Bld) 5.0 % Normal 0-10 [facility] Comment on above: Performed By: #### L 509.8002, L501.9985, L500.4050, L3890.6006, BTS, L100.0100, L3890.6301, L509.4006, L3890.6102 #### [facility] [address] [facility] [place], [address] Neutrophils/100 WBC (Bld) 78.5 % High 47-70 [facility] Comment on above: Performed By: #### L 509.8002, L501.9985, L500.4050, L3890.6006, BTS, L100.0100, L3890.6301, L509.4006, L3890.6102 #### [facility] [address] [facility] [place], [address] Nucleated RBC (Bld) [#/Vol] 0 10*3/uL Normal 0-5 [facility] Comment on above: Performed By: #### L 509.8002, L501.9985, L500.4050, L3890.6006, BTS, L100.0100, L3890.6301, L509.4006, L3890.6102 #### [facility] [address] [place], [address] ( Platelet mean volume (Bld) [Entitic vol] 10.7 fL Normal 6.2-12.0 [facility] Comment on above: Performed By: #### L 509.8002, L501.9985, L500.4050, L3890.6006, BTS, L100.0100, L3890.6301, L509.4006, L3890.6102 #### [facility] [address] [place], [address] ( Platelets (Bld) [#/Vol] 180 10*3/uL Normal 150-450 [facility] Comment on above: Performed By: #### L 509.8002, L501.9985, L500.4050, L3890.6006, BTS, L100.0100, L3890.6301, L509.4006, L3890.6102 #### [facility] [address] [place], [address] (173) RBC (Bld) [#/Vol] 4.15 10*6/uL Low 4.2-5.4 [facility] Comment on above: Performed By: #### L 509.8002, L501.9985, L500.4050, L3890.6006, BTS, L100.0100, L3890.6301, L509.4006, L3890.6102 #### [facility] [address] [place], [address] RDW SD 39.5 fl Normal 35.1-43.9 [facility] Comment on above: Performed By: #### L 509.8002, L501.9985, L500.4050, L3890.6006, BTS, L100.0100, L3890.6301, L509.4006, L3890.6102 #### [facility] [address] [place], [address] WBC (Bld) [#/Vol] 7.8 10*3/uL Normal 4.4-11.0 [facility] Comment on above: Performed By: #### L 509.8002, L501.9985, L500.4050, L3890.6006, BTS, L100.0100, L3890.6301, L509.4006, L3890.6102 #### [facility] [address] [place], [address] Comprehensive Metabolic Prof [facility] 05-07-2025 Albumin [Mass/Vol] 4.2 g/dL Normal 3.5-5.0 [facility] Comment on above: Performed By: #### L 509.8002, L501.9985, L500.4050, L3890.6006, BTS, L100.0100, L3890.6301, L509.4006, L3890.6102 ####[facility] [address] [place], [address] Albumin/Globulin [Mass ratio] 1.6 {ratio} Normal 0.9-2.4 [facility] Comment on above: Performed By: #### L 509.8002, L501.9985, L500.4050, L3890.6006, BTS, L100.0100, L3890.6301, L509.4006, L3890.6102 ####[facility] [address] [place], [address] ALK PHOS 62 U/L Normal 35-104 [facility] Comment on above: Performed By: #### L 509.8002, L501.9985, L500.4050, L3890.6006, BTS, L100.0100, L3890.6301, L509.4006, L3890.6102 ####[facility] [address] [place], [address] ALT [Catalytic activity/Vol] 58 U/L High <=34 [facility] Comment on above: Performed By: #### L 509.8002, L501.9985, L500.4050, L3890.6006, BTS, L100.0100, L3890.6301, L509.4006, L3890.6102 ####[facility] [address] [place], [address] AST [Catalytic activity/Vol] 43 U/L High <=31 [facility] Comment on above: Performed By: #### L 509.8002, L501.9985, L500.4050, L3890.6006, BTS, L100.0100, L3890.6301, L509.4006, L3890.6102 ####[facility] [address] [place], [place], [phone] Bilirubin [Mass/Vol] 0.56 mg/dL Normal 0.00-1.30 [facility] Comment on above: Performed By: #### L 509.8002, L501.9985, L500.4050, L3890.6006, BTS, L100.0100, L3890.6301, L509.4006, L3890.6102 ####[facility] [address] [place], [place], [phone] BUN/CRE 10.7 RATIO Normal 10-20 [facility] Comment on above: Performed By: #### L 509.8002, L501.9985, L500.4050, L3890.6006, BTS, L100.0100, L3890.6301, L509.4006, L3890.6102 ####[facility] [address] [place], [address] Calcium [Mass/Vol] 9.5 mg/dL Normal 7.6-11.0 [facility] Comment on above: Performed By: #### L 509.8002, L501.9985, L500.4050, L3890.6006, BTS, L100.0100, L3890.6301, L509.4006, L3890.6102 ####[facility] [address] [place], [address] Chloride [Moles/Vol] 102 mmol/L Normal 98-108 [facility] Comment on above: Performed By: #### L 509.8002, L501.9985, L500.4050, L3890.6006, BTS, L100.0100, L3890.6301, L509.4006, L3890.6102 ####[facility] [address] [place], [address] CO2 [Moles/Vol] 17.7 mmol/L Low 21.0-32.0 [facility] Comment on above: Performed By: #### L 509.8002, L501.9985, L500.4050, L3890.6006, BTS, L100.0100, L3890.6301, L509.4006, L3890.6102 ####[facility] [address] [place], [address] Creatinine [Mass/Vol] 0.59 mg/dL Low 0.70-1.20 [facility] Comment on above: Performed By: #### L 509.8002, L501.9985, L500.4050, L3890.6006, BTS, L100.0100, L3890.6301, L509.4006, L3890.6102 ####[facility] [address] [place], [address] GAP 16 High 5-15 [facility] Comment on above: Performed By: #### L 509.8002, L501.9985, L500.4050, L3890.6006, BTS, L100.0100, L3890.6301, L509.4006, L3890.6102 ####[facility] [address] [place], [address] GFR/1.73 sq M.predicted among non-blacks MDRD (S/P/Bld) [Vol rate/Area] 128 mL/min/{1.73_m2} Normal >60 [facility] Comment on above: Result Comment: mL/m in/1.73m2 CKD-EPI Creatinine Equation (2020) Performed By: #### L 509.8002, L501.9985, L500.4050, L3890.6006, BTS, L100.0100, L3890.6301, L509.4006, L3890.6102 ####[facility] [address] [place], [address] Globulin (S) [Mass/Vol] 2.7 g/dL Normal 2.2-4.2 [facility] Comment on above: Performed By: #### L 509.8002, L501.9985, L500.4050, L3890.6006, BTS, L100.0100, L3890.6301, L509.4006, L3890.6102 ####[facility] [address] [place], [address] Glucose [Mass/Vol] 110 mg/dL High 70-99 [facility] Comment on above: Performed By: #### L 509.8002, L501.9985, L500.4050, L3890.6006, BTS, L100.0100, L3890.6301, L509.4006, L3890.6102 ####[facility] [address] [place], [address] Potassium [Moles/Vol] 3.7 mmol/L Normal 3.3-5.1 [facility] Comment on above: Performed By: #### L 509.8002, L501.9985, L500.4050, L3890.6006, BTS, L100.0100, L3890.6301, L509.4006, L3890.6102 ####[facility] [address] [place], [place], [address] Sodium [Moles/Vol] 135 mmol/L Normal 133-145 [facility] Comment on above: Performed By: #### L 509.8002, L501.9985, L500.4050, L3890.6006, BTS, L100.0100, L3890.6301, L509.4006, L3890.6102 ####[facility] [address] [place], [address] T PROT 6.9 g/dL Normal 5.9-8.4 [facility] Comment on above: Performed By: #### L 509.8002, L501.9985, L500.4050, L3890.6006, BTS, L100.0100, L3890.6301, L509.4006, L3890.6102 ####[facility] [address] [place], [address] Urea nitrogen [Mass/Vol] 6 mg/dL Normal 4-19 [facility] Comment on above: Performed By: #### L 509.8002, L501.9985, L500.4050, L3890.6006, BTS, L100.0100, L3890.6301, L509.4006, L3890.6102 ####[facility] [address] [place], [address] HIVon 05-07-2025 HIV Non-Reactive Normal Nonreactive [facility] Comment on above: Result Comment: Non- Reactive Reactive Repeatedly reactive samples must be confirmed according to CDC recommended confirmatory algorithms. The subresults for either HIVAG or AHIV can be used as an aid in the selection of the confirmation algorithm for reactive samples. Send out specimens with Reactive results to [facility] for confirmation. Order the HIV antibody detection and differentiation: [id number] Performed By: #### L 509.8002, L501.9985, L500.4050, L3890.6006, BTS, L100.0100, L3890.6301, L509.4006, L3890.6102 ####[facility] [address] [facility] [place], [place], [address] Hemoglobin A1con 05-07-2025 HbA1c (Bld) [Mass fraction] 5.1 % Normal <=5.6 [facility] Comment on above: Result Comment: Norm al < 5.7 % Prediabetic 5.7 - 6.4 % Diabetic >or= 6.5 % Please note range changes. Performed By: #### L 509.8002, L501.9985, L500.4050, L3890.6006, BTS, L100.0100, L3890.6301, L509.4006, L3890.6102 #### [facility] [address] [facility] [place], [place], [address] Hepatitis C Antibodyon 05-07 Hepatitis C Ab Non-Reactive Normal Nonreactive [facility] Comment on above: Result Comment: Reac tive: Presumptive evidence of antibodies to HCV. Follow CDC recommendations for supplemental testing. Non-Reactive: Antibodies to HCV were not detected; does not exclude the possibility of exposure to HCV Reactive Results are presumptive evidence of antibodies to HCV. Follow CDC recommendations for supplemental testing. Order confirmation testing: HCV Quant by PCR testing - HCVPCR #[id number] Non Reactive: < 0.8 Equivocal: >/= 0.8 to < 1.0 Reactive: >/= 1.0 The CDC requires that a reactive/equivocal HCV antibody result be sent out for confirmation. HCV Quant by PCR testing. Performed By: #### L 509.8002, L501.9985, L500.4050, L3890.6006, BTS, L100.0100, L3890.6301, L509.4006, L3890.6102 ####[facility] [address] [place], [address] L3890.6102on 05-07-2025 HEP B Surf Ag Non-Reactive Normal Nonreactive [facility] Comment on above: Result Comment: Reac tive: Presumptive evidence of HBV. Repeatedly reactive samples must be confirmed using a neutralization test ([employer] HBsAg Confirmatory Test) Non-Reactive: HBsAg not detected; does not exclude the possibility of exposure to HBV Performed By: #### L 509.8002, L501.9985, L500.4050, L3890.6006, BTS, L100.0100, L3890.6301, L509.4006, L3890.6102 ####[facility] [address] [place], [address] L509.4006on 05-07-2025 Rubella IgG REAC Normal Nonreactive [facility] Comment on above: Result Comment: Anti body Result: Interpretation Non-Reactive: Non-Immune Reactive: Immune The following results were obtained with the [employer] Rubella IgG assay. Results from assays of other manufacturers cannot be used interchangeably. Performed By: #### L 509.8002, L501.9985, L500.4050, L3890.6006, BTS, L100.0100, L3890.6301, L509.4006, L3890.6102 ####[facility] [address] 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 [facility]'s [address], [address] [place] [address] OFFICE VISIT Date of Service: 05/07/25 MR#: [id number] Acct: [id number] Name: LUZ OLIVEIRA Rep #: [id number] : 2000 Provider: JELENA Ordonez ams Age/Sex: 24/F [place] [facility] [place] Status: Signed Intake Vital Signs 01/02/25 18:31 04/09/25 10:40 05/07/25 14:40 Height 5 ft 1 in 5 ft 1 in 5 ft 1 in Weight: 187 lb 4 oz BMI 35.4 BP 117/83 H Intake Visit Reasons: 13wk OB Chief Complaint: 13wk OB Supervisor Cutting And Boning Required: No Is patient in pain?: No Allergies escitalopram (From Lexapro) Adverse Reaction (Severe, Verified 05/07/25 14:39) SUICIDAL citalopram hydrobromide (From Celexa) Adverse Reaction (Verified 05/07/25 14:39) Other Medications ???Medication ???Instructions ???Recorded ???Confirmed ???Type focpobrq-ucz-Cp-FA 1 mg 1 tab PO DAILY 08/09/22 05/07/25 H istory tablet metoclopramide HCl 5 mg tablet 5 mg PO QACHS #60 tabs 04/19/25 Rx (Reglan) Last Menstrual Period: 02/02/25 : No PFSH PFSH Medical History Congenital cnzhpw-rzcnsum-bvmyn reflux Surgical History [place] teeth removed Family History Grandmother Breast cancer Brain cancer Grandfather CVA (cerebral vascular accident) Mother Diabetes Heart failure MRSA carrier History of recurrent miscarriages Father Hypertension Social History adopted: No household members: spouse and children housing: house number of children: 1 current occupation: [employer] current occupational exposures/hazards: No pets and animals: [...] 3-4 times per week duration: 15-30 minutes/day kalpana/latter day: Voodoo seatbelt use: always do you feel safe at home: Yes 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 Normal [facility] Syphilis Antibodieson 2024 Syphilis Abs Non-Reactive Normal Nonreactive [facility] Comment on above: Performed By: #### L 509.8002, L501.9985, L500.4050, L3890.6006, BTS, L100.0100, L3890.6301, L509.4006, L3890.6102 ####[facility] [address] [place], [place], [id number] Type AND Screenon 05-07-2025 Ab SCREEN GEL Negative Normal [facility] Comment on above: Order Comment: PN Performed By: #### L 509.8002, L501.9985, L500.4050, L3890.6006, BTS, L100.0100, L3890.6301, L509.4006, L3890.6102 ####[facility] [address] [place], [address] Chlamydia/GC CHICHO aptimaon CHLAMY,NUC ACID Negative Normal Negative [facility] Comment on above: Performed By: #### L 501.2450, L500.3400, L500.2500 #### [facility] [address] [place], [address] GC BY NUC ACID Negative Normal Negative [facility] Comment on above: Result Comment: Perf ormed at: =G - [facility] [address] [id number] Patent Legal Assistant: Rubi Snow MD, Phone: [phone] Performed By: #### L 501.2450, L500.3400, L500.2500 #### [facility] [address] [place], [address] PAP I-G w/rfx hrHPV-Aptimaon 04-12-2025 ADEQ Comment Normal . [facility] Comment on above: Order Comment: Speci men Comment: [id number] Comment: No. of containers..01 ThinPrep Vial Result Comment: Sati sfactory for evaluation. Endocervical and/or squamous metaplastic cells (endocervical component) are present. Performed By: #### L 501.2450, L500.3400, L500.2500 #### [facility] [address] [place], [address] COMM . Normal . [facility] Comment on above: Order Comment: Speci men Comment: [id number] Comment: No. of containers..01 ThinPrep Vial Performed By: #### L 501.2450, L500.3400, L500.2500 #### [facility] [address] [place], [place], [address] COMMENT Comment Normal . [facility] Comment on above: Order Comment: Speci men Comment: [id number] Comment: No. of containers..01 ThinPrep Vial Result Comment: This liquid based ThinPrep(R) pap test was screened with the use of an image guided system. Performed By: #### L 501.2450, L500.3400, L500.2500 #### [facility] [address] [place], [place], [address] DIAG Comment Normal . [facility] Comment on above: Order Comment: Speci men Comment: [id number] Comment: No. of containers..01 ThinPrep Vial Result Comment: NEGA TIVE FOR INTRAEPITHELIAL LESION OR MALIGNANCY. Performed By: #### L 501.2450, L500.3400, L500.2500 #### [facility] [address] [place], [place], [address] HPV RFLX Comment Normal . [facility] Comment on above: Order Comment: Speci men Comment: [id number] Comment: No. of containers..01 ThinPrep Vial Result Comment: The HPV DNA reflex criteria were not met with this specimen result therefore, no HPV testing was performed. Performed at: [address] [id number] Patent Legal Assistant: Rubi Snow MD, Phone: [phone] Performed By: #### L 501.2450, L500.3400, L500.2500 #### [facility] [address] [place], [place], [address] PAPSMR Comment Normal . [facility] Comment on above: Order Comment: Speci men Comment: [id number] Comment: No. of containers..01 ThinPrep Vial Result Comment: The Pap smear is a screening test designed to aid in the detection of premalignant and malignant conditions of the uterine cervix. It is not a diagnostic procedure and should not be used as the sole means of detecting cervical cancer. Both false-positive and false-negative reports do occur. Performed By: #### L 501.2450, L500.3400, L500.2500 #### [facility] [address] [place], [address] PERFORM Comment Normal . [facility] Comment on above: Order Comment: Speci men Comment: [id number] Comment: No. of containers..01 ThinPrep Vial Result Comment: Delores Lombardo, Asphalt Tamping Machine Operator (ASCP) Performed By: #### L 501.2450, L500.3400, L500.2500 #### [facility] [address] [place], [address] Urine Cultureon 04-11-2025 URC Mixed Gram Positive Organisms Reynolds Count 80,000-100,000 MIXC Mixed contaminants. Submit a new specimen if indicated. Normal [facility] Comment on above: Performed By: #### L 501.2450, L500.3400, L500.2500 #### [facility] [address] [place], [place], [id number] Pellet Press Operator Office Visit Reporton 04-09-2025 Pellet Press Operator Office Visit Report [facility] Women's [address], [address] [place] [address] OFFICE VISIT Date of Service: 04/09/25 MR#: [id number] Acct: [id number] Name: LUZ OLIVEIRA Rep #: [id number] : 2000 Provider: Dr. Geraldine storey MD Age/Sex: 24/F [place] [facility] [place]: Signed Intake Vital Signs 01/02/25 18:31 03/13/25 11:49 04/09/25 10:39 04/09/25 10:40 Height 5 ft 1 in 5 ft 1 in 5 ft 1 in 5 ft 1 in Weight: 194 lb 8 oz BMI 36.7 BP 106/69 Intake Visit Reasons: *NEW* NOB LMP 02/02, KIMO 11/09 per Supervisor Cutting And Boning Required: No Is patient in pain?: Yes (cramping with urination) Allergies escitalopram (From Lexapro) Adverse Reaction (Severe, Verified 04/09/25 10:39) SUICIDAL citalopram hydrobromide (From Celexa) Adverse Reaction (Verified 04/09/25 10:39) Other Medications ???Medication ???Instructions ???Recorded ???Confirmed ???Type nlcmyaev-juq-Ab-FA 1 mg 1 tab PO DAILY 08/09/22 04/09/25 H istory tablet Last Menstrual Period: 02/02/25 Zika: Zika virus screening: Negative : No PFSH PFSH Medical History (Updated 04/09/25 @ 10:50 by Remedios Wong) Congenital nqatft-htmriwb-zddxe reflux Surgical History [place] teeth removed Family History Grandmother Breast cancer Brain cancer Grandfather CVA (cerebral vascular accident) Mother Diabetes Heart failure MRSA carrier History of recurrent miscarriages Father Hypertension Social History adopted: No household members: spouse and children housing: house number of children: 1 current occupation: [employer] current occupational exposures/hazards: No pets and animals: [...] 3-4 times per week duration: 15-30 minutes/day kalpana/latter day: Voodoo seatbelt use: always do you feel safe at home: Yes 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 Normal [facility] Protein+Creatinine Ratio,Uri neon 04-09-2025 PROT:CRE RATIO 58 mg/g CRE Normal 0-200 [facility] Comment on above: Performed By: #### L 501.2450, L500.3400, L500.2500 #### [facility] [address] [place], [address] Protein (U) [Mass/Vol] 15.6 mg/dL High 0.0-12.0 [facility] Comment on above: Performed By: #### L 501.2450, L500.3400, L500.2500 #### [facility] [address] [place], [address] Transvaginal w/Preg USon Transvaginal w/Preg US [facility] Imaging Services [address] [place], [place] [address] Transvaginal w/Preg US MR#: [id number] Acct: [id number] Name: LUZ OLIVEIRA Rep #: [id number] : 2000 F 24 From: Maxwell Ponce MD PCP: Care Physician,No Primary Status: REG CLI Study: Transvaginal w/Preg US Date of Exam: 03/15/25 Exam# [id number] Ordering Dr: Remedios Garcia NP, NP PROCEDURE: TRANSVAGINAL W/PREG US 03/15/2025 REASON FOR [...] follow-up. 2. Small perigestational hemorrhage. Reading Location: [facility] CC: JARAD Garcia; No Primary Care Physician Physical Fitness Teacher: Signed Normal [facility] hCG Titer Quant., Serumon HCG QUANT. 7025 mIU/mL High <9 non-preg [facility] Comment on above: Result Comment: Gest ational Age 0.2-1 Week: 5-50 mIU/mL 1-2 Weeks: 50-500 mIU/mL 2-3 Weeks: 100-5000 mIU/mL 3-4 Weeks: 500-10,000 mIU/mL 4-5 Weeks:1000-50,000 mIU/mL 5-6 Weeks: 10,000-100,000 mIU/mL 6-8 Weeks: 15,000-200,000 mIU/mL 2-3 Months:10,000-100,000 mIU/mL Performed By: #### L 501.2450, L500.3400, L500.2500 #### [facility] [address] [place], [address] Office Visit Reporton [address] [facility] Services [address] [place] [address] OFFICE VISIT Date of Service: 03/13/25 MR#: [id number] Acct: [id number] Patient: LUZ OLIVEIRA Rep #: [id number] : 2000 Provider: JARAD moctezuma Age/Sex: 24/F Location[place] [facility] [place] Status: Signed Intake Vital Signs 01/02/25 18:31 03/13/25 11:49 Height 5 ft 1 in 5 ft 1 in Weight: 200 lb 6 oz BMI 37.8 BP 118/72 Intake Visit Reasons: Pre New OB, Confirm preg, Vitals Supervisor Cutting And Boning Required: No Is patient in pain?: No Allergies escitalopram (From Lexapro) Adverse Reaction (Severe, Verified 03/13/25 11:12) SUICIDAL citalopram hydrobromide (From Celexa) Adverse Reaction (Verified 03/13/25 11:12) Other Medications ???Medication ???Instructions ???Recorded ???Confirmed ???Type rkhmebnq-cnq-Ps-FA 1 mg 1 tab PO DAILY 08/09/22 [...] Pt with C/O spotting since last night. [facility] notified in office. HcG and TV US [...] Acute (9) Autism: Status: Acute (10) Congenital eghgfu-lttkets-clnxu reflux: Status: Acute Comment: Recurrent UTI's and [...] fallen in the past year?: No 03/13/25 9109 (more content not included)... Normal [facility] hCG Titer Quant., Serumon HCG QUANT. 3759 mIU/mL High <9 non-preg [facility] Comment on above: Result Comment: Gest ational Age 0.2-1 Week: 5-50 mIU/mL 1-2 Weeks: 50-500 mIU/mL 2-3 Weeks: 100-5000 mIU/mL 3-4 Weeks: 500-10,000 mIU/mL 4-5 Weeks:1000-50,000 mIU/mL 5-6 Weeks: 10,000-100,000 mIU/mL 6-8 Weeks: 15,000-200,000 mIU/mL 2-3 Months:10,000-100,000 mIU/mL Performed By: #### L 700.8000 ####[facility] [address] [place], [place], [id number] Culture, Blood (WB)on 2024 CUB Blood cultures x2, from two different sites No growth in 5 days. Normal [facility] Comment on above: Performed By: #### L 501.0900 #### [facility] [address] [place], [place], [id number] Urine Cultureon 01-04-2025 URC Presumptive E. coli Reynolds Count 25,000-50,000 Presumptive E. coli: REACTION Ampicillin [...] TMP SMX Islt BRANDI <=20 S Normal [facility] Comment on above: Performed By: #### L 501.0900 #### [facility] [address] [place], [place], [id number] Abdomen/Pelvis W IV Cont ONL Yon 01-02-2025 Abdomen/Pelvis W IV Cont ONLY [facility] Imaging Services [address] [place], [place] [address] Abdomen/Pelvis W IV Cont ONLY MR#: [id number] Acct: [id number] Name: TEELUZ ROY Rep #: [id number] : 2000 F 24 From: Yari Reyes nd, MD PCP: Care Physician,No Primary Status: [facility] ER Study: Abdomen/Pelvis W IV Cont ONLY Date of Exam: Exam# [id number] Ordering Dr: Mendez Gardner DO PROCEDURE: ABDOMEN/PELVIS [...] recommended. 3. Diffuse hepatic steatosis. Reading Location: [facility] CC: Dr. Mendez Gardner DO; No Primary Care Physician Physical Fitness Teacher: Signed Normal [facility] CBC W/Diff, Automatedon - Absolute Lymph 0.64 X10 3/uL Low 0.83-4.51 [facility] Comment on above: Order Comment: REDRA W. PREVIOUS SPECIMEN REJECTED DUE TOCLOTTED SPECIMEN. 01/02/251948 Performed By: #### L 501.0900 #### [facility] [address] [place], [address] Absolute Neut 9.4 X10 3/uL High 2.0-7.7 [facility] Comment on above: Order Comment: REDRA W. PREVIOUS SPECIMEN REJECTED DUE TOCLOTTED SPECIMEN. 01/02/251948 Performed By: #### L 501.0900 #### [facility] [address] [place], [address] Basophils/100 WBC (Bld) 0.1 % Normal 0-1 [facility] Comment on above: Order Comment: REDRA W. PREVIOUS SPECIMEN REJECTED DUE TOCLOTTED SPECIMEN. 01/02/251948 Performed By: #### L 501.0900 #### [facility] [address] [place], [address] Eosinophils/100 WBC (Bld) 0.0 % Normal 0-5 [facility] Comment on above: Order Comment: REDRA W. PREVIOUS SPECIMEN REJECTED DUE TOCLOTTED SPECIMEN. 01/02/251948 Performed By: #### L 501.0900 #### [facility] [address] [place], [address] Erythrocyte distribution width (RBC) [Ratio] 12.4 % Normal 11.6-14.6 [facility] Comment on above: Order Comment: REDRA W. PREVIOUS SPECIMEN REJECTED DUE TOCLOTTED SPECIMEN. 01/02/251948 Performed By: #### L 501.0900 #### [facility] [address] [place], [address] Hematocrit (Bld) [Volume fraction] 41.9 % Normal 37-47 [facility] Comment on above: Order Comment: REDRA W. PREVIOUS SPECIMEN REJECTED DUE TOCLOTTED SPECIMEN. 01/02/251948 Performed By: #### L 501.0900 #### [facility] [address] [place], [address] Hemoglobin (Bld) [Mass/Vol] 14.6 g/dL Normal 12.0-15.0 [facility] Comment on above: Order Comment: REDRA W. PREVIOUS SPECIMEN REJECTED DUE TOCLOTTED SPECIMEN. 01/02/251948 Performed By: #### L 501.0900 #### [facility] [address] [place], [address] IG% 0.600 Normal 0.0-0.9 [facility] Comment on above: Order Comment: REDRA W. PREVIOUS SPECIMEN REJECTED DUE TOCLOTTED SPECIMEN. 01/02/251948 Result Comment: IG% - Immature Granulocytes (promyelocytes, myelocytes and metamyelocytes) > 1% indicates that a LEFT SHIFT is Present. Performed By: #### L 501.0900 #### [facility] [address] [place], [address] Lymphocytes/100 WBC (Bld) 5.9 % Low 19-41 [facility] Comment on above: Order Comment: REDRA W. PREVIOUS SPECIMEN REJECTED DUE TOCLOTTED SPECIMEN. 01/02/251948 Performed By: #### L 501.0900 #### [facility] [address] [place], [address] MCH (RBC) [Entitic mass] 30.8 pg Normal 27.0-32.0 [facility] Comment on above: Order Comment: REDRA W. PREVIOUS SPECIMEN REJECTED DUE TOCLOTTED SPECIMEN. 01/02/251948 Performed By: #### L 501.0900 #### [facility] [address] [place], [address] MCHC (RBC) [Mass/Vol] 34.8 g/dL Normal 32-36 [facility] Comment on above: Order Comment: REDRA W. PREVIOUS SPECIMEN REJECTED DUE TOCLOTTED SPECIMEN. 01/02/251948 Performed By: #### L 501.0900 #### [facility] [address] [place], [address] MCV (RBC) [Entitic vol] 88.4 fL Normal 81-99 [facility] Comment on above: Order Comment: REDRA W. PREVIOUS SPECIMEN REJECTED DUE TOCLOTTED SPECIMEN. 01/02/251948 Performed By: #### L 501.0900 #### [facility] [address] [place], [address] Monocytes/100 WBC (Bld) 5.9 % Normal 0-10 [facility] Comment on above: Order Comment: REDRA W. PREVIOUS SPECIMEN REJECTED DUE TOCLOTTED SPECIMEN. 01/02/251948 Performed By: #### L 501.0900 #### [facility] [address] [place], [address] Neutrophils/100 WBC (Bld) 87.5 % High 47-70 [facility] Comment on above: Order Comment: REDRA W. PREVIOUS SPECIMEN REJECTED DUE TOCLOTTED SPECIMEN. 01/02/251948 Performed By: #### L 501.0900 #### [facility] [address] [place], [address] Nucleated RBC (Bld) [#/Vol] 0 10*3/uL Normal 0-5 [facility] Comment on above: Order Comment: REDRA W. PREVIOUS SPECIMEN REJECTED DUE TOCLOTTED SPECIMEN. 01/02/251948 Performed By: #### L 501.0900 #### [facility] [address] [place], [address] Platelet mean volume (Bld) [Entitic vol] 10.2 fL Normal 6.2-12.0 [facility] Comment on above: Order Comment: REDRA W. PREVIOUS SPECIMEN REJECTED DUE TOCLOTTED SPECIMEN. 01/02/251948 Performed By: #### L 501.0900 #### [facility] [address] [place], [address] Platelets (Bld) [#/Vol] 188 10*3/uL Normal 150-450 [facility] Comment on above: Order Comment: REDRA W. PREVIOUS SPECIMEN REJECTED DUE TOCLOTTED SPECIMEN. 01/02/251948 Performed By: #### L 501.0900 #### [facility] [address] [place], [address] RBC (Bld) [#/Vol] 4.74 10*6/uL Normal 4.2-5.4 [facility] Comment on above: Order Comment: REDRA W. PREVIOUS SPECIMEN REJECTED DUE TOCLOTTED SPECIMEN. 01/02/251948 Performed By: #### L 501.0900 #### [facility] [address] [place], [address] RDW SD 40.1 fl Normal 35.1-43.9 [facility] Comment on above: Order Comment: REDRA W. PREVIOUS SPECIMEN REJECTED DUE TOCLOTTED SPECIMEN. 01/02/251948 Performed By: #### L 501.0900 #### [facility] [address] [place], [address] WBC (Bld) [#/Vol] 10.8 10*3/uL Normal 4.4-11.0 [facility] Comment on above: Order Comment: REDRA W. PREVIOUS SPECIMEN REJECTED DUE TOCLOTTED SPECIMEN. 01/02/251948 Performed By: #### L 501.0900 #### [facility] [address] [place], [address] Absolute Neut Normal 2.0-7.7 [facility] Comment on above: Result Comment: This specimen has been REJECTED due to Laboratory criteria: Clotted. ED-ELVIN has been notified of need of recollection. 01/02/251947 Performed By: #### L 501.2450, L500.3400, L500.2500 #### [facility] [address] [place], [address] HCT Normal 37-47 [facility] Comment on above: Result Comment: This specimen has been REJECTED due to Laboratory criteria: Clotted. ED-ELVIN has been notified of need of recollection. 01/02/251947 Performed By: #### L 501.2450, L500.3400, L500.2500 #### [facility] [address] [place], [address] HGB Normal 12.0-15.0 [facility] Comment on above: Result Comment: This specimen has been REJECTED due to Laboratory criteria: Clotted. ED-ELVIN has been notified of need of recollection. 01/02/251947 Performed By: #### L 501.2450, L500.3400, L500.2500 #### [facility] [address] [place], [address] MCH Normal 27.0-32.0 [facility] Comment on above: Result Comment: This specimen has been REJECTED due to Laboratory criteria: Clotted. ED-ELVIN has been notified of need of recollection. 01/02/251947 Performed By: #### L 501.2450, L500.3400, L500.2500 #### [facility] [address] [place], [address] MCHC Normal 32-36 [facility] Comment on above: Result Comment: This specimen has been REJECTED due to Laboratory criteria: Clotted. ED-ELVIN has been notified of need of recollection. 01/02/251947 Performed By: #### L 501.2450, L500.3400, L500.2500 #### [facility] [address] [place], [address] MCV Normal 81-99 [facility] Comment on above: Result Comment: This specimen has been REJECTED due to Laboratory criteria: Clotted. ED-ELVIN has been notified of need of recollection. 01/02/251947 Performed By: #### L 501.2450, L500.3400, L500.2500 #### [facility] [address] [place], [address] NEUT% Normal 47-70 [facility] Comment on above: Result Comment: This specimen has been REJECTED due to Laboratory criteria: Clotted. ED-ELVIN has been notified of need of recollection. 01/02/251947 Performed By: #### L 501.2450, L500.3400, L500.2500 #### [facility] [address] [place], [address] PLT Normal 150-450 [facility] Comment on above: Result Comment: This specimen has been REJECTED due to Laboratory criteria: Clotted. ED-ELVIN has been notified of need of recollection. 01/02/251947 Performed By: #### L 501.2450, L500.3400, L500.2500 #### [facility] [address] [place], [address] RBC Normal 4.2-5.4 [facility] Comment on above: Result Comment: This specimen has been REJECTED due to Laboratory criteria: Clotted. ED-ELVIN has been notified of need of recollection. 01/02/251947 Performed By: #### L 501.2450, L500.3400, L500.2500 #### [facility] [address] [place], [address] RDW CV Normal 11.6-14.6 [facility] Comment on above: Result Comment: This specimen has been REJECTED due to Laboratory criteria: Clotted. ED-ELVIN has been notified of need of recollection. 01/02/251947 Performed By: #### L 501.2450, L500.3400, L500.2500 #### [facility] [address] [place], [address] RDW SD Normal 35.1-43.9 [facility] Comment on above: Result Comment: This specimen has been REJECTED due to Laboratory criteria: Clotted. ED-ELVIN has been notified of need of recollection. 01/02/251947 Performed By: #### L 501.2450, L500.3400, L500.2500 #### [facility] [address] [place], [address] WBC Normal 4.4-11.0 [facility] Comment on above: Result Comment: This specimen has been REJECTED due to Laboratory criteria: Clotted. ED-ELVIN has been notified of need of recollection. 01/02/251947 Performed By: #### L 501.2450, L500.3400, L500.2500 #### [facility] [address] [place], [address] Comprehensive Metabolic Prof ilon 01-02-2025 Albumin [Mass/Vol] 4.5 g/dL Normal 3.5-5.0 [facility] Comment on above: Performed By: #### L 501.2450, L500.3400, L500.2500 #### [facility] [address] [place], [address] Albumin/Globulin [Mass ratio] 1.3 {ratio} Normal 0.9-2.4 [facility] Comment on above: Performed By: #### L 501.2450, L500.3400, L500.2500 #### [facility] [address] [place], [address] ALK PHOS 69 U/L Normal 35-104 [facility] Comment on above: Performed By: #### L 501.2450, L500.3400, L500.2500 #### [facility] [address] [place], [address] ALT [Catalytic activity/Vol] 50 U/L High <=34 [facility] Comment on above: Performed By: #### L 501.2450, L500.3400, L500.2500 #### [facility] [address] [place], [address] AST [Catalytic activity/Vol] 28 U/L Normal <=31 [facility] Comment on above: Performed By: #### L 501.2450, L500.3400, L500.2500 #### [facility] [address] [place], [address] Bilirubin [Mass/Vol] 0.96 mg/dL Normal 0.00-1.30 [facility] Comment on above: Performed By: #### L 501.2450, L500.3400, L500.2500 #### [facility] [address] [place], [address] BUN/CRE 13.3 RATIO Normal 10-20 [facility] Comment on above: Performed By: #### L 501.2450, L500.3400, L500.2500 #### [facility] [address] [place], [address] Calcium [Mass/Vol] 9.6 mg/dL Normal 7.6-11.0 [facility] Comment on above: Performed By: #### L 501.2450, L500.3400, L500.2500 #### [facility] [address] [place], [address] Chloride [Moles/Vol] 102 mmol/L Normal 98-108 [facility] Comment on above: Performed By: #### L 501.2450, L500.3400, L500.2500 #### [facility] [address] [place], [address] CO2 [Moles/Vol] 23.0 mmol/L Normal 21.0-32.0 [facility] Comment on above: Performed By: #### L 501.2450, L500.3400, L500.2500 #### [facility] [address] [place], [address] Creatinine [Mass/Vol] 0.93 mg/dL Normal 0.70-1.20 [facility] Comment on above: Performed By: #### L 501.2450, L500.3400, L500.2500 #### [facility] [address] [place], [address] ECRCL 94.15 ml/min Normal 50-250 [facility] Comment on above: Performed By: #### L 501.2450, L500.3400, L500.2500 #### [facility] [address] [place], [address] GAP 13 Normal 5-15 [facility] Comment on above: Performed By: #### L 501.2450, L500.3400, L500.2500 #### [facility] [address] [place], [address] GFR/1.73 sq M.predicted among non-blacks MDRD (S/P/Bld) [Vol rate/Area] 87 mL/min/{1.73_m2} Normal >60 [facility] Comment on above: Result Comment: mL/m in/1.73m2 CKD-EPI Creatinine Equation (2020) Performed By: #### L 501.2450, L500.3400, L500.2500 #### [facility] [address] [place], [address] Globulin (S) [Mass/Vol] 3.4 g/dL Normal 2.2-4.2 [facility] Comment on above: Performed By: #### L 501.2450, L500.3400, L500.2500 #### [facility] [address] [place], [address] Glucose [Mass/Vol] 109 mg/dL High 70-99 [facility] Comment on above: Performed By: #### L 501.2450, L500.3400, L500.2500 #### [facility] [address] [place], [address] Potassium [Moles/Vol] 3.4 mmol/L Normal 3.3-5.1 [facility] Comment on above: Performed By: #### L 501.2450, L500.3400, L500.2500 #### [facility] [address] [place], [address] Sodium [Moles/Vol] 138 mmol/L Normal 133-145 [facility] Comment on above: Performed By: #### L 501.2450, L500.3400, L500.2500 #### [facility] [address] [place], [address] T PROT 7.9 g/dL Normal 5.9-8.4 [facility] Comment on above: Performed By: #### L 501.2450, L500.3400, L500.2500 #### [facility] [address] [place], [address] Urea nitrogen [Mass/Vol] 12 mg/dL Normal 4-19 [facility] Comment on above: Performed By: #### L 501.2450, L500.3400, L500.2500 #### [facility] [address] [place], [address] Emergency Department Summary on 01-02-2025 Emergency Department Summary [facility] Medical Records Department [address] [place] [address] Emergency Department Summary 01/02/25 MR#: [id number] Acct: [id number] Name: LUZ OLIVEIRA Rep #: [id number] : 2000 24 From: Mendez Gardner DO [...] States that she tried Azo at home. [facility] Medical History Lumbar radiculopathy, acute Acute lumbar myofascial strain Blunt abdominal trauma Chest wall contusion Cervical strain, acute Concussion without loss of consciousness Crushing injury of right great toe, initial encounter Congenital ygfwco-zofndjr-aulaa reflux Home Medications ???Medication ???Instructions ???Recorded ???Last Taken ???Type blhfrnaw-boj-Qq-FA 1 mg 1 tab PO DAILY 08/09/22 [...] (cerebral vascular accident) Mother Diabetes Surgical History [place] teeth removed Social History household members: spouse [...] following commands knew that she was at [facility] years 2024 Skin:, No rashes or lesions [...] Respiratory Rat (more content not included)... Normal [facility] Lactic Acidon 01-02-2025 Lactate [Moles/Vol] 1.1 mmol/L Normal 0.0-2.0 [facility] Comment on above: Order Comment: Y Performed By: #### L 501.0900 #### [facility] [address] [place], [address] Lipaseon 01-02-2025 Lipase [Catalytic activity/Vol] 19 U/L Normal 13-75 [facility] Comment on above: Result Comment: Lisa paez note: LIPASE revised reference range effective 23. New Lipase methodology. Expected to produce lower values than the previous assay method. NEW Reference Range: 13 - 75 U/L Performed By: #### L 501.2450, L500.3400, L500.2500 #### [facility] [address] [place], [address] M100.678on 01-02-2025 M100.678 Pending SARS-CoV-2 (COVID 19) Negative INFLUENZA A Negative INFLUENZA B Negative RSV PCR Negative Normal [facility] Comment on above: Performed By: #### L 501.0900 #### [facility] [address] [place], [address] Partial Thromboplast Timeon 01-02-2025 aPTT Coag (Bld) [Time] 33.7 s Normal 24.1-36.2 [facility] Comment on above: Performed By: #### L 501.0900 #### [facility] [address] [place], [address] ,Serum,hCG Quali.on 01-02-2025 HCG, SERUM QUAL Negative Normal [facility] Comment on above: Performed By: #### L 501.2450, L500.3400, L500.2500 #### [facility] [address] [place], [address] Prothrombin Time w/INRon INR Coag (PPP) [Relative time] 1.1 {INR} Normal [facility] Comment on above: Performed By: #### L 501.0900 #### [facility] [address] [place], [address] PT Coag (PPP) [Time] 14.5 s Normal 11.7-14.9 [facility] Comment on above: Performed By: #### L 501.0900 #### [facility] [address] [place], [address] Urinalysis, Completeon 01-02 EPI,SQUAMOUS 5-10 SEEN Normal 5-10 [facility] Comment on above: Order Comment: CLEAN CATCH Performed By: #### L 501.0900 #### [facility] [address] [place], [address] BACTERIA 3+ /hpf Normal None Seen [facility] Comment on above: Order Comment: CLEAN CATCH Performed By: #### L 501.0900 #### [facility] [address] [place], [address] RBC 5-10 SEEN Normal 0-5 [facility] Comment on above: Order Comment: CLEAN CATCH Performed By: #### L 501.0900 #### [facility] [address] [place], [address] WBC >100 SEEN Normal 0-5 [facility] Comment on above: Order Comment: CLEAN CATCH Performed By: #### L 501.0900 #### [facility] [address] [place], [address] Mucus Ql (Urine sed) 0 SEEN Normal [facility] Comment on above: Order Comment: CLEAN CATCH Performed By: #### L 501.0900 #### [facility] [address] [place], [address] XR SPINE CERVICAL AP/LATon 0 02-19-2024 XR [...] 02/19/2024 1:39:46 AM Ordering Provider: KIRSTEN Miller [facility]) B12on 10-19-2023 Cobalamin (Vitamin B12) [Mass/Vol] 279 pg/mL Normal 211-911 [facility]) Comment on above: Performed By: #### G FR, LIPID, HFP, A1C, IBC, TSH, CBC, ANEU, FT4, FERR, ADIFF, CMP, FE, VIDH, FT3 #### [place] [address] #### FOL, B12 #### [place] [address] FOLon 10-19-2023 Folate 8.29 ng/mL Normal 5.38-24.00 [facility]) Comment on above: Performed By: #### G FR, LIPID, HFP, A1C, IBC, TSH, CBC, ANEU, FT4, FERR, ADIFF, CMP, FE, VIDH, FT3 #### [place] [address] #### FOL, B12 #### [place] [address] .Auto Diffon 10-15-2023 Basophil, Absolute 0.0 10 3/mcL Normal 0.0-0.2 [facility]) Comment on above: Performed By: #### G FR, LIPID, HFP, A1C, IBC, TSH, CBC, ANEU, FT4, FERR, ADIFF, CMP, FE, VIDH, FT3 #### [address] [address] #### FOL, B12 #### [address] [address] Basophils/100 WBC (Bld) 0.2 % Normal 0.0-2.5 [facility] ([place] Comment on above: Performed By: #### G FR, LIPID, HFP, A1C, IBC, TSH, CBC, ANEU, FT4, FERR, ADIFF, CMP, FE, VIDH, FT3 #### [address] [address] #### FOL, B12 #### [address] [address] Eosinophil, Absolute 0.0 10 3/mcL Normal 0.0-0.4 [facility] ([place]) Comment on above: Performed By: #### G FR, LIPID, HFP, A1C, IBC, TSH, CBC, ANEU, FT4, FERR, ADIFF, CMP, FE, VIDH, FT3 #### [address] [address] #### FOL, B12 #### [address] [address] Eosinophils/100 WBC (Bld) 0.6 % Normal 0.0-7.0 [facility] ([place] Comment on above: Performed By: #### G FR, LIPID, HFP, A1C, IBC, TSH, CBC, ANEU, FT4, FERR, ADIFF, CMP, FE, VIDH, FT3 #### [address] [address] #### FOL, B12 #### [address] [address] Lymphocyte, Absolute 1.5 10 3/mcL Normal 0.8-3.9 [facility] ([place] Comment on above: Performed By: #### G FR, LIPID, HFP, A1C, IBC, TSH, CBC, ANEU, FT4, FERR, ADIFF, CMP, FE, VIDH, FT3 #### [address] [address] #### FOL, B12 #### [address] [address] Lymphocytes/100 WBC (Bld) 23.2 % Normal 10.0-50.0 [facility] ([place] Comment on above: Performed By: #### G FR, LIPID, HFP, A1C, IBC, TSH, CBC, ANEU, FT4, FERR, ADIFF, CMP, FE, VIDH, FT3 #### [address] [address] #### FOL, B12 #### [address] [address] Monocyte, Absolute 0.4 10 3/mcL Normal 0.2-1.0 [facility] ([place] Comment on above: Performed By: #### G FR, LIPID, HFP, A1C, IBC, TSH, CBC, ANEU, FT4, FERR, ADIFF, CMP, FE, VIDH, FT3 #### [address] [address] #### FOL, B12 #### [address] [address] Monocytes/100 WBC (Bld) 5.6 % Normal 1.7-13.0 [facility] ([place] Comment on above: Performed By: #### G FR, LIPID, HFP, A1C, IBC, TSH, CBC, ANEU, FT4, FERR, ADIFF, CMP, FE, VIDH, FT3 #### [address] [address] #### FOL, B12 #### [address] [address] Neutrophils/100 WBC (Bld) 70.4 % Normal 37.0-80.0 [facility] ([place] Comment on above: Performed By: #### G FR, LIPID, HFP, A1C, IBC, TSH, CBC, ANEU, FT4, FERR, ADIFF, CMP, FE, VIDH, FT3 #### [address] [address] #### FOL, B12 #### [address] [address] .GFRon 10-15-2023 GFR Non- 73 ml/min/1.73sqm [facility] ([place]) Comment on above: Result Comment: GFR Population [...] FERR, ADIFF, CMP, FE, VIDH, FT3 #### [address] [address] #### FOL, B12 #### [address] [address] GFR 89 ml/min/1.73sqm Normal [facility] ([place] Comment on above: Result Comment: GFR Population [...] FERR, ADIFF, CMP, FE, VIDH, FT3 #### [address] [address] #### FOL, B12 #### [place] [address] .NEUABSon 10-15-2023 Neutrophil, Absolute 4.5 10 3/mcL Normal 2.9-6.2 [facility] ([place]) Comment on above: Performed By: #### G FR, LIPID, HFP, A1C, IBC, TSH, CBC, ANEU, FT4, FERR, ADIFF, CMP, FE, VIDH, FT3 #### [place] [address] #### FOL, B12 #### [place] [address] A1Con 10-15-2023 HbA1c (Bld) [Mass fraction] 4.9 % Normal 4.3-6.4 [facility] ([place] Comment on above: Performed By: #### G FR, LIPID, HFP, A1C, IBC, TSH, CBC, ANEU, FT4, FERR, ADIFF, CMP, FE, VIDH, FT3 #### [place] [address] #### FOL, B12 #### [place] [address] CBCon 10-15-2023 Erythrocyte distribution width (RBC) [Ratio] 14.1 % Normal 11.5-14.5 [facility] ([place] Comment on above: Performed By: #### G FR, LIPID, HFP, A1C, IBC, TSH, CBC, ANEU, FT4, FERR, ADIFF, CMP, FE, VIDH, FT3 #### [place] [address] #### FOL, B12 #### [place] [address] Hematocrit (Bld) [Volume fraction] 42.4 % Normal 37.0-47.0 [facility] ([place] Comment on above: Performed By: #### G FR, LIPID, HFP, A1C, IBC, TSH, CBC, ANEU, FT4, FERR, ADIFF, CMP, FE, VIDH, FT3 #### [address] [address] #### FOL, B12 #### [address] [address] Hgb 14.5 G/dL Normal 12.0-16.0 [facility] ([place] Comment on above: Performed By: #### G FR, LIPID, HFP, A1C, IBC, TSH, CBC, ANEU, FT4, FERR, ADIFF, CMP, FE, VIDH, FT3 #### [address] [address] #### FOL, B12 #### [address] [address] MCH (RBC) [Entitic mass] 30.8 pg Normal 27.0-31.2 [facility] ([place] Comment on above: Performed By: #### G FR, LIPID, HFP, A1C, IBC, TSH, CBC, ANEU, FT4, FERR, ADIFF, CMP, FE, VIDH, FT3 #### [address] [address] #### FOL, B12 #### [address] [address] MCHC 34.2 G/dL Normal 33.0-37.0 [facility] ([place] Comment on above: Performed By: #### G FR, LIPID, HFP, A1C, IBC, TSH, CBC, ANEU, FT4, FERR, ADIFF, CMP, FE, VIDH, FT3 #### [address] [address] #### FOL, B12 #### [address] [address] MCV (RBC) [Entitic vol] 90.3 fL Normal 80.0-94.0 [facility] ([place] Comment on above: Performed By: #### G FR, LIPID, HFP, A1C, IBC, TSH, CBC, ANEU, FT4, FERR, ADIFF, CMP, FE, VIDH, FT3 #### [address] [address] #### FOL, B12 #### [address] [address] Platelet 237 10 3/mcL Normal 130-400 [facility] ([place] Comment on above: Performed By: #### G FR, LIPID, HFP, A1C, IBC, TSH, CBC, ANEU, FT4, FERR, ADIFF, CMP, FE, VIDH, FT3 #### [address] [address] #### FOL, B12 #### [address] [address] Platelet mean volume (Bld) [Entitic vol] 8.6 fL Normal 7.4-10.4 [facility] ([place] Comment on above: Performed By: #### G FR, LIPID, HFP, A1C, IBC, TSH, CBC, ANEU, FT4, FERR, ADIFF, CMP, FE, VIDH, FT3 #### [address] [address] #### FOL, B12 #### [address] [address] RBC 4.69 10 6/mcL Normal 4.20-5.40 [facility] ([place] Comment on above: Performed By: #### G FR, LIPID, HFP, A1C, IBC, TSH, CBC, ANEU, FT4, FERR, ADIFF, CMP, FE, VIDH, FT3 #### [address] [address] #### FOL, B12 #### [address] [address] WBC 6.4 10 3/mcL Normal 4.6-10.8 [facility] ([place] Comment on above: Performed By: #### G FR, LIPID, HFP, A1C, IBC, TSH, CBC, ANEU, FT4, FERR, ADIFF, CMP, FE, VIDH, FT3 #### [address] [address] #### FOL, B12 #### [address] [address] CMPon 10-15-2023 BUN/Creatinine Ratio 17 ratio Normal 7-27 [facility] ([place] Comment on above: Performed By: #### G FR, LIPID, HFP, A1C, IBC, TSH, CBC, ANEU, FT4, FERR, ADIFF, CMP, FE, VIDH, FT3 #### [address] [address] #### FOL, B12 #### [address] [address] Calcium [Mass/Vol] 9.5 mg/dL Normal 8.4-10.2 [facility] ([place] Comment on above: Performed By: #### G FR, LIPID, HFP, A1C, IBC, TSH, CBC, ANEU, FT4, FERR, ADIFF, CMP, FE, VIDH, FT3 #### [address] [address] #### FOL, B12 #### [address] [address] Chloride [Moles/Vol] 101 mmol/L Normal 98-107 [facility] ([place] Comment on above: Performed By: #### G FR, LIPID, HFP, A1C, IBC, TSH, CBC, ANEU, FT4, FERR, ADIFF, CMP, FE, VIDH, FT3 #### [address] [address] #### FOL, B12 #### [address] [address] CO2 [Moles/Vol] 27 mmol/L Normal 22-29 [facility] ([place] Comment on above: Performed By: #### G FR, LIPID, HFP, A1C, IBC, TSH, CBC, ANEU, FT4, FERR, ADIFF, CMP, FE, VIDH, FT3 #### [address] [address] #### FOL, B12 #### [address] [address] Creatinine [Mass/Vol] 0.94 mg/dL Normal 0.55-1.02 [facility] ([place]) Comment on above: Performed By: #### G FR, LIPID, HFP, A1C, IBC, TSH, CBC, ANEU, FT4, FERR, ADIFF, CMP, FE, VIDH, FT3 #### [address] [address] #### FOL, B12 #### [address] [address] Electrolyte Balance 13.0 mEq/L Normal 4.0-15.0 [facility] ([place]) Comment on above: Performed By: #### G FR, LIPID, HFP, A1C, IBC, TSH, CBC, ANEU, FT4, FERR, ADIFF, CMP, FE, VIDH, FT3 #### [address] [address] #### FOL, B12 #### [address] [address] Glucose [Mass/Vol] 92 mg/dL Normal 70-105 [facility] ([place] Comment on above: Performed By: #### G FR, LIPID, HFP, A1C, IBC, TSH, CBC, ANEU, FT4, FERR, ADIFF, CMP, FE, VIDH, FT3 #### [address] [address] #### FOL, B12 #### [address] [address] Potassium [Moles/Vol] 4.2 mmol/L Normal 3.5-5.1 [facility] ([place] Comment on above: Performed By: #### G FR, LIPID, HFP, A1C, IBC, TSH, CBC, ANEU, FT4, FERR, ADIFF, CMP, FE, VIDH, FT3 #### [address] [address] #### FOL, B12 #### [address] [address] Sodium [Moles/Vol] 141 mmol/L Normal 136-145 [facility] ([place] Comment on above: Performed By: #### G FR, LIPID, HFP, A1C, IBC, TSH, CBC, ANEU, FT4, FERR, ADIFF, CMP, FE, VIDH, FT3 #### [address] [address] #### FOL, B12 #### [address] [address] Urea nitrogen [Mass/Vol] 16 mg/dL Normal 7-18 [facility] ([place] Comment on above: Performed By: #### G FR, LIPID, HFP, A1C, IBC, TSH, CBC, ANEU, FT4, FERR, ADIFF, CMP, FE, VIDH, FT3 #### [address] [address] #### FOL, B12 #### [address] [address] FEon 10-15-2023 Iron [Mass/Vol] 141 ug/dL Normal 50-170 [facility] ([place] Comment on above: Performed By: #### G FR, LIPID, HFP, A1C, IBC, TSH, CBC, ANEU, FT4, FERR, ADIFF, CMP, FE, VIDH, FT3 #### [address] [address] #### FOL, B12 #### [address] [address] Heidi 10-15-2023 Ferritin [Mass/Vol] 60.0 ng/mL Normal 8.0-252.0 [facility] ([place] Comment on above: Performed By: #### G FR, LIPID, HFP, A1C, IBC, TSH, CBC, ANEU, FT4, FERR, ADIFF, CMP, FE, VIDH, FT3 #### [address] [address] #### FOL, B12 #### [address] [address] FT3on 10-15-2023 Free T3 [Mass/Vol] 3.26 pg/mL Normal 2.30-4.00 [facility] ([place] Comment on above: Performed By: #### G FR, LIPID, HFP, A1C, IBC, TSH, CBC, ANEU, FT4, FERR, ADIFF, CMP, FE, VIDH, FT3 #### [address] [address] #### FOL, B12 #### [place] [address] FT4on 10-15-2023 Free T4 [Mass/Vol] 1.15 ng/dL Normal 0.76-1.46 [facility] ([place] Comment on above: Performed By: #### G FR, LIPID, HFP, A1C, IBC, TSH, CBC, ANEU, FT4, FERR, ADIFF, CMP, FE, VIDH, FT3 #### [address] [address] #### FOL, B12 #### [place] [address] HFPon 10-15-2023 Bili Indirect 0.4 mg/dL Normal [facility] ([place] Comment on above: Performed By: #### G FR, LIPID, HFP, A1C, IBC, TSH, CBC, ANEU, FT4, FERR, ADIFF, CMP, FE, VIDH, FT3 #### [address] [address] #### FOL, B12 #### [place] [address] Albumin Level 4.0 G/dL Normal 3.5-5.0 [facility] ([place] Comment on above: Performed By: #### G FR, LIPID, HFP, A1C, IBC, TSH, CBC, ANEU, FT4, FERR, ADIFF, CMP, FE, VIDH, FT3 #### [address] [address] #### FOL, B12 #### [place] [address] Albumin/Globulin [Mass ratio] 1.1 {ratio} Normal 1.1-2.5 [facility] ([place] Comment on above: Performed By: #### G FR, LIPID, HFP, A1C, IBC, TSH, CBC, ANEU, FT4, FERR, ADIFF, CMP, FE, VIDH, FT3 #### [address] [address] #### FOL, B12 #### [place] [address] ALP [Catalytic activity/Vol] 91 U/L Normal 40-135 [facility] ([place] Comment on above: Performed By: #### G FR, LIPID, HFP, A1C, IBC, TSH, CBC, ANEU, FT4, FERR, ADIFF, CMP, FE, VIDH, FT3 #### [place] [address] #### FOL, B12 #### [place] [address] ALT [Catalytic activity/Vol] 25 U/L Normal 14-59 [facility] ([place] Comment on above: Performed By: #### G FR, LIPID, HFP, A1C, IBC, TSH, CBC, ANEU, FT4, FERR, ADIFF, CMP, FE, VIDH, FT3 #### [place] [address] #### FOL, B12 #### [place] [address] AST [Catalytic activity/Vol] 15 U/L Normal 10-40 [facility] ([place] Comment on above: Performed By: #### G FR, LIPID, HFP, A1C, IBC, TSH, CBC, ANEU, FT4, FERR, ADIFF, CMP, FE, VIDH, FT3 #### [place] [address] #### FOL, B12 #### [place] [address] Bili Direct 0.2 mg/dL Normal 0.0-0.2 [facility] ([place] Comment on above: Result Comment: Use of this assay is not recommended for patients undergoing treatment with eltrombopag due to the potential for falsely elevated results. Performed By: #### G FR, LIPID, HFP, A1C, IBC, TSH, CBC, ANEU, FT4, FERR, ADIFF, CMP, FE, VIDH, FT3 #### [address] [address] #### FOL, B12 #### [place] [address] Bili Total 0.6 mg/dL Normal 0.2-1.0 [facility] ([place] Comment on above: Result Comment: Use of this assay is not recommended for patients undergoing treatment with eltrombopag due to the potential for falsely elevated results. Performed By: #### G FR, LIPID, HFP, A1C, IBC, TSH, CBC, ANEU, FT4, FERR, ADIFF, CMP, FE, VIDH, FT3 #### [place] [address] #### FOL, B12 #### [place] [address] Globulin 3.7 G/dL Normal [facility] ([place] Comment on above: Performed By: #### G FR, LIPID, HFP, A1C, IBC, TSH, CBC, ANEU, FT4, FERR, ADIFF, CMP, FE, VIDH, FT3 #### [address] [address] #### FOL, B12 #### [place] [address] Total Protein 7.7 G/dL Normal 6.4-8.2 [facility] ([place] Comment on above: Performed By: #### G FR, LIPID, HFP, A1C, IBC, TSH, CBC, ANEU, FT4, FERR, ADIFF, CMP, FE, VIDH, FT3 #### [place] [address] #### FOL, B12 #### [place] [address] IBCon 10-15-2023 TIBC 330 mcg/dL Normal 250-450 [facility] ([place] Comment on above: Performed By: #### G FR, LIPID, HFP, A1C, IBC, TSH, CBC, ANEU, FT4, FERR, ADIFF, CMP, FE, VIDH, FT3 #### [facility] [address], [place] [address] #### FOL, B12 #### [place] [address] LABORATORYOrdered By: SYSTEM SYSTEM on 10-15-2023 25-hydroxyvitamin [...] 10-15-2023 Cholesterol [Mass/Vol] 172 mg/dL Normal 0-200 [facility] ([place] Comment on above: Result Comment: Chol esterol Reference Interval: Less than 200 Desirable 200-239 Borderline high risk 240 and above High risk Performed By: #### G FR, LIPID, HFP, A1C, IBC, TSH, CBC, ANEU, FT4, FERR, ADIFF, CMP, FE, VIDH, FT3 #### [address] [address] #### FOL, B12 #### [address] [address] Cholesterol in HDL [Mass/Vol] 66 mg/dL High 40-60 [facility] ([place] Comment on above: Performed By: #### G FR, LIPID, HFP, A1C, IBC, TSH, CBC, ANEU, FT4, FERR, ADIFF, CMP, FE, VIDH, FT3 #### [address] [address] #### FOL, B12 #### [address] [address] Cholesterol in LDL [Mass/Vol] 80 mg/dL Normal 0-130 [facility] ([place] Comment on above: Performed By: #### G FR, LIPID, HFP, A1C, IBC, TSH, CBC, ANEU, FT4, FERR, ADIFF, CMP, FE, VIDH, FT3 #### [address] [address] #### FOL, B12 #### [address] [address] Triglyceride [Mass/Vol] 132 mg/dL Normal 0-150 [facility] ([place] Comment on above: Result Comment: Trig lyceride Reference Interval: Less than 150 Normal 150-199 Borderline high risk 200-499 High risk 500 or higher Very high risk Performed By: #### G FR, LIPID, HFP, A1C, IBC, TSH, CBC, ANEU, FT4, FERR, ADIFF, CMP, FE, VIDH, FT3 #### [address] [address] #### FOL, B12 #### [place] [address] Laboratory - Chemistry and C hemistry - [...] 10-15-2023 TSH Qn 1.13 m[IU]/L Normal 0.36-3.74 [facility] ([place] Comment on above: Performed By: #### G FR, LIPID, HFP, A1C, IBC, TSH, CBC, ANEU, FT4, FERR, ADIFF, CMP, FE, VIDH, FT3 #### [address] [address] #### FOL, B12 #### [place] [address] UDRUGon 10-15-2023 Amphetamine (u) Negative Normal Negative [facility] ([place]) Comment on above: Performed By: #### G FR, LIPID, HFP, A1C, IBC, TSH, CBC, ANEU, FT4, FERR, ADIFF, CMP, FE, VIDH, FT3 #### [address] [address] #### FOL, B12 #### [place] [address] Barbiturate (u) Negative Normal Negative [facility] ([place]) Comment on above: Performed By: #### G FR, LIPID, HFP, A1C, IBC, TSH, CBC, ANEU, FT4, FERR, ADIFF, CMP, FE, VIDH, FT3 #### [place] [address] #### FOL, B12 #### [place] [address] Benzodiazepine (u) Negative Normal Negative [facility] ([place] Comment on above: Performed By: #### G FR, LIPID, HFP, A1C, IBC, TSH, CBC, ANEU, FT4, FERR, ADIFF, CMP, FE, VIDH, FT3 #### [address] [address] #### FOL, B12 #### [place] [address] Cannabinoid (u) Negative Normal Negative [facility] ([place]) Comment on above: Performed By: #### G FR, LIPID, HFP, A1C, IBC, TSH, CBC, ANEU, FT4, FERR, ADIFF, CMP, FE, VIDH, FT3 #### [address] [address] #### FOL, B12 #### [place] [address] Cocaine Ql (U) Negative Normal Negative [facility] ([place] Comment on above: Performed By: #### G FR, LIPID, HFP, A1C, IBC, TSH, CBC, ANEU, FT4, FERR, ADIFF, CMP, FE, VIDH, FT3 #### [address] [address] #### FOL, B12 #### [address] [address] Methadone Ql (U) Negative Normal Negative [facility] ([place]) Comment on above: Performed By: #### G FR, LIPID, HFP, A1C, IBC, TSH, CBC, ANEU, FT4, FERR, ADIFF, CMP, FE, VIDH, FT3 #### [address] [address] #### FOL, B12 #### [place] [address] Opiate (u) Negative Normal Negative [facility] ([place]) Comment on above: Performed By: #### G FR, LIPID, HFP, A1C, IBC, TSH, CBC, ANEU, FT4, FERR, ADIFF, CMP, FE, VIDH, FT3 #### [address] [address] #### FOL, B12 #### [place] [address] PCP (u) Negative Normal Negative [facility] ([place]) Comment on above: Performed By: #### G FR, LIPID, HFP, A1C, IBC, TSH, CBC, ANEU, FT4, FERR, ADIFF, CMP, FE, VIDH, FT3 #### [address] [address] #### FOL, B12 #### [place] [address] Urine Drugs screened: See Below Normal [facility] ([place]) Comment on above: Result Comment: This drug [...] FERR, ADIFF, CMP, FE, VIDH, FT3 #### [address] [address] #### FOL, B12 #### [place] [address] VIDHon 10-15-2023 Vit. D 25-Hydroxy 12.2 ng/mL Normal [facility] ([place] Comment on above: Result Comment: Inte rpretive Values Based on Total 25(OH) Vitamin D: Deficient <20 ng/mL Insufficient 20 - <30 ng/mL Sufficient 30-100 ng/mL Performed By: #### G FR, LIPID, HFP, A1C, IBC, TSH, CBC, ANEU, FT4, FERR, ADIFF, CMP, FE, VIDH, FT3 #### [place] [address] #### FOL, B12 #### [place] [address] .Auto Diffon 03-31-2023 Basophil, Absolute 0.0 10 3/mcL Normal 0.0-0.2 [facility] ([place] Comment on above: Performed By: #### G FR, LIPID, HFP, A1C, IBC, TSH, CBC, ANEU, FT4, FERR, ADIFF, CMP, FE, VIDH, FT3 #### [place] [address] #### FOL, B12 #### [address] [address] Basophils/100 WBC (Bld) 0.1 % Normal 0.0-2.5 [facility] ([place] Comment on above: Performed By: #### G FR, LIPID, HFP, A1C, IBC, TSH, CBC, ANEU, FT4, FERR, ADIFF, CMP, FE, VIDH, FT3 #### [place] [address] #### FOL, B12 #### [address] [address] Eosinophil, Absolute 0.0 10 3/mcL Normal 0.0-0.4 [facility] ([place]) Comment on above: Performed By: #### G FR, LIPID, HFP, A1C, IBC, TSH, CBC, ANEU, FT4, FERR, ADIFF, CMP, FE, VIDH, FT3 #### [address] [address] #### FOL, B12 #### [address] [address] Eosinophils/100 WBC (Bld) 0.0 % Normal 0.0-7.0 [facility] ([place] Comment on above: Performed By: #### G FR, LIPID, HFP, A1C, IBC, TSH, CBC, ANEU, FT4, FERR, ADIFF, CMP, FE, VIDH, FT3 #### [address] [address] #### FOL, B12 #### [address] [address] Lymphocyte, Absolute 1.2 10 3/mcL Normal 0.8-3.9 [facility] ([place]) Comment on above: Performed By: #### G FR, LIPID, HFP, A1C, IBC, TSH, CBC, ANEU, FT4, FERR, ADIFF, CMP, FE, VIDH, FT3 #### [address] [id number] #### FOL, B12 #### [address] [address] Lymphocytes/100 WBC (Bld) 11.4 % Normal 10.0-50.0 [facility] ([place] Comment on above: Performed By: #### G FR, LIPID, HFP, A1C, IBC, TSH, CBC, ANEU, FT4, FERR, ADIFF, CMP, FE, VIDH, FT3 #### [address] [address] #### FOL, B12 #### [address] [address] Monocyte, Absolute 0.8 10 3/mcL Normal 0.2-1.0 [facility] ([place]) Comment on above: Performed By: #### G FR, LIPID, HFP, A1C, IBC, TSH, CBC, ANEU, FT4, FERR, ADIFF, CMP, FE, VIDH, FT3 #### [address] [address] #### FOL, B12 #### [address] [address] Monocytes/100 WBC (Bld) 7.6 % Normal 1.7-13.0 [facility] ([place] Comment on above: Performed By: #### G FR, LIPID, HFP, A1C, IBC, TSH, CBC, ANEU, FT4, FERR, ADIFF, CMP, FE, VIDH, FT3 #### [address] [address] #### FOL, B12 #### [address] [address] Neutrophils/100 WBC (Bld) 80.9 % High 37.0-80.0 [facility] ([place] Comment on above: Performed By: #### G FR, LIPID, HFP, A1C, IBC, TSH, CBC, ANEU, FT4, FERR, ADIFF, CMP, FE, VIDH, FT3 #### [address] [address] #### FOL, B12 #### [address] [address] .NEUABSon 03-31-2023 Neutrophil, Absolute 8.8 10 3/mcL High 2.9-6.2 [facility] ([place]) Comment on above: Performed By: #### G FR, LIPID, HFP, A1C, IBC, TSH, CBC, ANEU, FT4, FERR, ADIFF, CMP, FE, VIDH, FT3 #### [address] [address] #### FOL, B12 #### [address] [address] CBCon 03-31-2023 Erythrocyte distribution width (RBC) [Ratio] 13.9 % Normal 11.5-14.5 [facility] ([place]) Comment on above: Performed By: #### G FR, LIPID, HFP, A1C, IBC, TSH, CBC, ANEU, FT4, FERR, ADIFF, CMP, FE, VIDH, FT3 #### [address] [address] #### FOL, B12 #### [address] [address] Hematocrit (Bld) [Volume fraction] 33.1 % Low 37.0-47.0 [facility] [place] Comment on above: Performed By: #### G FR, LIPID, HFP, A1C, IBC, TSH, CBC, ANEU, FT4, FERR, ADIFF, CMP, FE, VIDH, FT3 #### [address] [address] #### FOL, B12 #### [place] [address] Hgb 11.5 G/dL Low 12.0-16.0 [facility] ([place] Comment on above: Performed By: #### G FR, LIPID, HFP, A1C, IBC, TSH, CBC, ANEU, FT4, FERR, ADIFF, CMP, FE, VIDH, FT3 #### [address] [address] #### FOL, B12 #### [address] [address] MCH (RBC) [Entitic mass] 32.3 pg High 27.0-31.2 [facility] ([place] Comment on above: Performed By: #### G FR, LIPID, HFP, A1C, IBC, TSH, CBC, ANEU, FT4, FERR, ADIFF, CMP, FE, VIDH, FT3 #### [address] [address] #### FOL, B12 #### [address] [address] MCHC 34.7 G/dL Normal 33.0-37.0 [facility] ([place] Comment on above: Performed By: #### G FR, LIPID, HFP, A1C, IBC, TSH, CBC, ANEU, FT4, FERR, ADIFF, CMP, FE, VIDH, FT3 #### [address] [address] #### FOL, B12 #### [address] [address] MCV (RBC) [Entitic vol] 93.0 fL Normal 80.0-94.0 [facility] ([place] Comment on above: Performed By: #### G FR, LIPID, HFP, A1C, IBC, TSH, CBC, ANEU, FT4, FERR, ADIFF, CMP, FE, VIDH, FT3 #### [address] [address] #### FOL, B12 #### [place] [address] Platelet 155 10 3/mcL Normal 130-400 [facility] ([place] Comment on above: Performed By: #### G FR, LIPID, HFP, A1C, IBC, TSH, CBC, ANEU, FT4, FERR, ADIFF, CMP, FE, VIDH, FT3 #### [place] [address] #### FOL, B12 #### [address] [address] Platelet mean volume (Bld) [Entitic vol] 9.3 fL Normal 7.4-10.4 [facility] ([place] Comment on above: Performed By: #### G FR, LIPID, HFP, A1C, IBC, TSH, CBC, ANEU, FT4, FERR, ADIFF, CMP, FE, VIDH, FT3 #### [place] [address] #### FOL, B12 #### [address] [address] RBC 3.55 10 6/mcL Low 4.20-5.40 [facility] ([place] Comment on above: Performed By: #### G FR, LIPID, HFP, A1C, IBC, TSH, CBC, ANEU, FT4, FERR, ADIFF, CMP, FE, VIDH, FT3 #### [address] [address] #### FOL, B12 #### [address] [address] WBC 10.9 10 3/mcL High 4.6-10.8 [facility] ([place] Comment on above: Performed By: #### G FR, LIPID, HFP, A1C, IBC, TSH, CBC, ANEU, FT4, FERR, ADIFF, CMP, FE, VIDH, FT3 #### [place] [address] [place], [place] [address] #### FOL, B12 #### [address] [address] LABORATORYOrdered By: Billie Ibarra on 03-31-2023 Basophil, [...] Ab RPR Ql (S) Non-Reactive Normal Non-Reactive [facility] ([place] Comment on above: Result Comment: The RPR [...] FERR, ADIFF, CMP, FE, VIDH, FT3 #### [address] [address] #### FOL, B12 #### [address] [address] .Auto Diffon 03-30-2023 Basophil, Absolute 0.0 10 3/mcL Normal 0.0-0.2 [facility] ([place] Comment on above: Performed By: #### G FR, LIPID, HFP, A1C, IBC, TSH, CBC, ANEU, FT4, FERR, ADIFF, CMP, FE, VIDH, FT3 #### [address] [address] #### FOL, B12 #### [address] [address] Basophils/100 WBC (Bld) 0.1 % Normal 0.0-2.5 [facility] ([place] Comment on above: Performed By: #### G FR, LIPID, HFP, A1C, IBC, TSH, CBC, ANEU, FT4, FERR, ADIFF, CMP, FE, VIDH, FT3 #### [address] [address] #### FOL, B12 #### [address] [address] Eosinophil, Absolute 0.0 10 3/mcL Normal 0.0-0.4 [facility] ([place] Comment on above: Performed By: #### G FR, LIPID, HFP, A1C, IBC, TSH, CBC, ANEU, FT4, FERR, ADIFF, CMP, FE, VIDH, FT3 #### [address] [address] #### FOL, B12 #### [address] [address] Eosinophils/100 WBC (Bld) 0.2 % Normal 0.0-7.0 [facility] ([place] Comment on above: Performed By: #### G FR, LIPID, HFP, A1C, IBC, TSH, CBC, ANEU, FT4, FERR, ADIFF, CMP, FE, VIDH, FT3 #### [address] [address] #### FOL, B12 #### [address] [address] Lymphocyte, Absolute 1.8 10 3/mcL Normal 0.8-3.9 [facility] ([place] Comment on above: Performed By: #### G FR, LIPID, HFP, A1C, IBC, TSH, CBC, ANEU, FT4, FERR, ADIFF, CMP, FE, VIDH, FT3 #### [address] [address] #### FOL, B12 #### [address] [address] Lymphocytes/100 WBC (Bld) 16.8 % Normal 10.0-50.0 [facility] ([place] Comment on above: Performed By: #### G FR, LIPID, HFP, A1C, IBC, TSH, CBC, ANEU, FT4, FERR, ADIFF, CMP, FE, VIDH, FT3 #### [address] [address] #### FOL, B12 #### [address] [address] Monocyte, Absolute 0.8 10 3/mcL Normal 0.2-1.0 [facility] ([place] Comment on above: Performed By: #### G FR, LIPID, HFP, A1C, IBC, TSH, CBC, ANEU, FT4, FERR, ADIFF, CMP, FE, VIDH, FT3 #### [address] [address] #### FOL, B12 #### [address] [address] Monocytes/100 WBC (Bld) 7.2 % Normal 1.7-13.0 [facility] ([place] Comment on above: Performed By: #### G FR, LIPID, HFP, A1C, IBC, TSH, CBC, ANEU, FT4, FERR, ADIFF, CMP, FE, VIDH, FT3 #### [address] [address] #### FOL, B12 #### [address] [address] Neutrophils/100 WBC (Bld) 75.7 % Normal 37.0-80.0 [facility] ([place] Comment on above: Performed By: #### G FR, LIPID, HFP, A1C, IBC, TSH, CBC, ANEU, FT4, FERR, ADIFF, CMP, FE, VIDH, FT3 #### [place] [address] #### FOL, B12 #### [place] [address] .NEUABSon 03-30-2023 Neutrophil, Absolute 8.2 10 3/mcL High 2.9-6.2 [facility] ([place] Comment on above: Performed By: #### G FR, LIPID, HFP, A1C, IBC, TSH, CBC, ANEU, FT4, FERR, ADIFF, CMP, FE, VIDH, FT3 #### [place] [address] #### FOL, B12 #### [place] [address] CBCon 03-30-2023 Erythrocyte distribution width (RBC) [Ratio] 13.8 % Normal 11.5-14.5 [facility] ([place] Comment on above: Performed By: #### G FR, LIPID, HFP, A1C, IBC, TSH, CBC, ANEU, FT4, FERR, ADIFF, CMP, FE, VIDH, FT3 #### [place] [address] #### FOL, B12 #### [place] [address] Hematocrit (Bld) [Volume fraction] 37.2 % Normal 37.0-47.0 [facility] ([place] Comment on above: Performed By: #### G FR, LIPID, HFP, A1C, IBC, TSH, CBC, ANEU, FT4, FERR, ADIFF, CMP, FE, VIDH, FT3 #### [place] [address] #### FOL, B12 #### [place] [address] Hgb 12.9 G/dL Normal 12.0-16.0 [facility] ([place] Comment on above: Performed By: #### G FR, LIPID, HFP, A1C, IBC, TSH, CBC, ANEU, FT4, FERR, ADIFF, CMP, FE, VIDH, FT3 #### [address] [address] #### FOL, B12 #### [address] [address] MCH (RBC) [Entitic mass] 32.2 pg High 27.0-31.2 [facility] ([place] Comment on above: Performed By: #### G FR, LIPID, HFP, A1C, IBC, TSH, CBC, ANEU, FT4, FERR, ADIFF, CMP, FE, VIDH, FT3 #### [address] [address] #### FOL, B12 #### [address] [address] MCHC 34.7 G/dL Normal 33.0-37.0 [facility] ([place] Comment on above: Performed By: #### G FR, LIPID, HFP, A1C, IBC, TSH, CBC, ANEU, FT4, FERR, ADIFF, CMP, FE, VIDH, FT3 #### [address] [address] #### FOL, B12 #### [address] [address] MCV (RBC) [Entitic vol] 92.8 fL Normal 80.0-94.0 [facility] ([place] Comment on above: Performed By: #### G FR, LIPID, HFP, A1C, IBC, TSH, CBC, ANEU, FT4, FERR, ADIFF, CMP, FE, VIDH, FT3 #### [address] [address] #### FOL, B12 #### [address] [address] Platelet 169 10 3/mcL Normal 130-400 [facility] ([place] Comment on above: Performed By: #### G FR, LIPID, HFP, A1C, IBC, TSH, CBC, ANEU, FT4, FERR, ADIFF, CMP, FE, VIDH, FT3 #### [address] [address] #### FOL, B12 #### [address] [address] Platelet mean volume (Bld) [Entitic vol] 9.7 fL Normal 7.4-10.4 [facility] ([place] Comment on above: Performed By: #### G FR, LIPID, HFP, A1C, IBC, TSH, CBC, ANEU, FT4, FERR, ADIFF, CMP, FE, VIDH, FT3 #### [address] [address] #### FOL, B12 #### [address] [address] RBC 4.01 10 6/mcL Low 4.20-5.40 [facility] ([place] Comment on above: Performed By: #### G FR, LIPID, HFP, A1C, IBC, TSH, CBC, ANEU, FT4, FERR, ADIFF, CMP, FE, VIDH, FT3 #### [address] [address] #### FOL, B12 #### [address] [address] WBC 10.8 10 3/mcL Normal 4.6-10.8 [facility] ([place] Comment on above: Performed By: #### G FR, LIPID, HFP, A1C, IBC, TSH, CBC, ANEU, FT4, FERR, ADIFF, CMP, FE, VIDH, FT3 #### [address] [address] #### FOL, B12 #### [address] [address] Gel ABOon 03-30-2023 ABO/Rh Interp Positive Invalid Interpretation Code [facility] ([place] Comment on above: Performed By: #### G FR, LIPID, HFP, A1C, IBC, TSH, CBC, ANEU, FT4, FERR, ADIFF, CMP, FE, VIDH, FT3 #### [address] [address] #### FOL, B12 #### [facility] [address] [place] [address] Gel ABSon 03-30-2023 Antibody Screen Gel Negative Normal [facility] ([place]) Comment on above: Performed By: #### G FR, LIPID, HFP, A1C, IBC, TSH, CBC, ANEU, FT4, FERR, ADIFF, CMP, FE, VIDH, FT3 #### [facility] [address] [place], [place] [address] #### FOL, B12 #### [facility] [address] [place] [address] LABORATORYOrdered By: Lilia Espinoza on 03-30-2023 ABO/Rh [...] (03/30/23 7:57 AM) Invalid Interpretation Code Non-Reactive [facility] Viro/Sero SS GBSPCRon 03-10-2023 Group B Strep (PCR) Negative Normal Negative [facility] ([place] Comment on above: Performed By: #### G BSPCR #### [address] [address] Group B Strep PCR Int Normal [facility] ([place] Comment on above: Result Comment: Grou p [...] Below Performed By: #### G BSPCR #### [place] [id number] RPRon 03-10-2023 Reagin Ab RPR Ql (S) Non-Reactive Normal Non-Reactive [facility] ([place] Comment on above: Result Comment: The RPR [...] FERR, ADIFF, CMP, FE, VIDH, FT3 #### [address] [address] #### FOL, B12 #### [address] [address] .Auto Diffon 03-09-2023 Basophil, Absolute 0.0 10 3/mcL Normal 0.0-0.2 [facility] ([place] Comment on above: Performed By: #### G FR, LIPID, HFP, A1C, IBC, TSH, CBC, ANEU, FT4, FERR, ADIFF, CMP, FE, VIDH, FT3 #### [address] [address] #### FOL, B12 #### [address] [address] Basophils/100 WBC (Bld) 0.2 % Normal 0.0-2.5 [facility] ([place] Comment on above: Performed By: #### G FR, LIPID, HFP, A1C, IBC, TSH, CBC, ANEU, FT4, FERR, ADIFF, CMP, FE, VIDH, FT3 #### [address] [address] #### FOL, B12 #### [address] [address] Eosinophil, Absolute 0.0 10 3/mcL Normal 0.0-0.4 [facility] ([place] Comment on above: Performed By: #### G FR, LIPID, HFP, A1C, IBC, TSH, CBC, ANEU, FT4, FERR, ADIFF, CMP, FE, VIDH, FT3 #### [address] [address] #### FOL, B12 #### [address] [address] Eosinophils/100 WBC (Bld) 0.3 % Normal 0.0-7.0 [facility] ([place] Comment on above: Performed By: #### G FR, LIPID, HFP, A1C, IBC, TSH, CBC, ANEU, FT4, FERR, ADIFF, CMP, FE, VIDH, FT3 #### [address] [address] #### FOL, B12 #### [address] [address] Lymphocyte, Absolute 1.5 10 3/mcL Normal 0.8-3.9 [facility] ([place] Comment on above: Performed By: #### G FR, LIPID, HFP, A1C, IBC, TSH, CBC, ANEU, FT4, FERR, ADIFF, CMP, FE, VIDH, FT3 #### [address] [address] #### FOL, B12 #### [address] [address] Lymphocytes/100 WBC (Bld) 15.8 % Normal 10.0-50.0 [facility] ([place] Comment on above: Performed By: #### G FR, LIPID, HFP, A1C, IBC, TSH, CBC, ANEU, FT4, FERR, ADIFF, CMP, FE, VIDH, FT3 #### [address] [address] #### FOL, B12 #### [address] [address] Monocyte, Absolute 0.6 10 3/mcL Normal 0.2-1.0 [facility] ([place] Comment on above: Performed By: #### G FR, LIPID, HFP, A1C, IBC, TSH, CBC, ANEU, FT4, FERR, ADIFF, CMP, FE, VIDH, FT3 #### [address] [address] #### FOL, B12 #### [address] [address] Monocytes/100 WBC (Bld) 6.6 % Normal 1.7-13.0 [facility] ([place] Comment on above: Performed By: #### G FR, LIPID, HFP, A1C, IBC, TSH, CBC, ANEU, FT4, FERR, ADIFF, CMP, FE, VIDH, FT3 #### [address] [address] #### FOL, B12 #### [address] [address] Neutrophils/100 WBC (Bld) 77.1 % Normal 37.0-80.0 [facility] ([place] Comment on above: Performed By: #### G FR, LIPID, HFP, A1C, IBC, TSH, CBC, ANEU, FT4, FERR, ADIFF, CMP, FE, VIDH, FT3 #### [address] [address] #### FOL, B12 #### [address] [address] .NEUABSon 03-09-2023 Neutrophil, Absolute 7.4 10 3/mcL High 2.9-6.2 [facility] ([place] Comment on above: Performed By: #### G FR, LIPID, HFP, A1C, IBC, TSH, CBC, ANEU, FT4, FERR, ADIFF, CMP, FE, VIDH, FT3 #### [address] [address] #### FOL, B12 #### [address] [address] CBCon 03-09-2023 Erythrocyte distribution width (RBC) [Ratio] 13.9 % Normal 11.5-14.5 [facility] ([place] Comment on above: Performed By: #### G FR, LIPID, HFP, A1C, IBC, TSH, CBC, ANEU, FT4, FERR, ADIFF, CMP, FE, VIDH, FT3 #### [address] [address] #### FOL, B12 #### [address] [address] Hematocrit (Bld) [Volume fraction] 36.3 % Low 37.0-47.0 [facility] ([place] Comment on above: Performed By: #### G FR, LIPID, HFP, A1C, IBC, TSH, CBC, ANEU, FT4, FERR, ADIFF, CMP, FE, VIDH, FT3 #### [address] [address] #### FOL, B12 #### [place] [address] Hgb 12.6 G/dL Normal 12.0-16.0 [facility] ([place] Comment on above: Performed By: #### G FR, LIPID, HFP, A1C, IBC, TSH, CBC, ANEU, FT4, FERR, ADIFF, CMP, FE, VIDH, FT3 #### [address] [address] #### FOL, B12 #### [address] [address] MCH (RBC) [Entitic mass] 32.4 pg High 27.0-31.2 [facility] ([place] Comment on above: Performed By: #### G FR, LIPID, HFP, A1C, IBC, TSH, CBC, ANEU, FT4, FERR, ADIFF, CMP, FE, VIDH, FT3 #### [address] [address] #### FOL, B12 #### [address] [address] MCHC 34.7 G/dL Normal 33.0-37.0 [facility] ([place] Comment on above: Performed By: #### G FR, LIPID, HFP, A1C, IBC, TSH, CBC, ANEU, FT4, FERR, ADIFF, CMP, FE, VIDH, FT3 #### [address] [address] #### FOL, B12 #### [address] [address] MCV (RBC) [Entitic vol] 93.3 fL Normal 80.0-94.0 [facility] ([place] Comment on above: Performed By: #### G FR, LIPID, HFP, A1C, IBC, TSH, CBC, ANEU, FT4, FERR, ADIFF, CMP, FE, VIDH, FT3 #### [address] [address] #### FOL, B12 #### [place] [address] Platelet 171 10 3/mcL Normal 130-400 [facility] ([place] Comment on above: Performed By: #### G FR, LIPID, HFP, A1C, IBC, TSH, CBC, ANEU, FT4, FERR, ADIFF, CMP, FE, VIDH, FT3 #### [address] [address] #### FOL, B12 #### [address] [address] Platelet mean volume (Bld) [Entitic vol] 8.5 fL Normal 7.4-10.4 [facility] ([place] Comment on above: Performed By: #### G FR, LIPID, HFP, A1C, IBC, TSH, CBC, ANEU, FT4, FERR, ADIFF, CMP, FE, VIDH, FT3 #### [address] [address] #### FOL, B12 #### [place] [address] RBC 3.89 10 6/mcL Low 4.20-5.40 [facility] ([place] Comment on above: Performed By: #### G FR, LIPID, HFP, A1C, IBC, TSH, CBC, ANEU, FT4, FERR, ADIFF, CMP, FE, VIDH, FT3 #### [place] [address] [place], [place] [address] #### FOL, B12 #### [facility] [address] [place] [address] WBC 9.7 10 3/mcL Normal 4.6-10.8 [facility] ([place] Comment on above: Performed By: #### G FR, LIPID, HFP, A1C, IBC, TSH, CBC, ANEU, FT4, FERR, ADIFF, CMP, FE, VIDH, FT3 #### [facility] [address] [place], [place] [address] #### FOL, B12 #### [facility] [address] [place] [address] LABORATORYOrdered By: Isabella Eng on 03-09-2023 Group [...] SS AMNIon 03-06-2023 Amnisure Negative Normal Negative [facility] ([place] Comment on above: Performed By: #### G FR, LIPID, HFP, A1C, IBC, TSH, CBC, ANEU, FT4, FERR, ADIFF, CMP, FE, VIDH, FT3 #### [place] [address] [place], [place] [address] #### FOL, B12 #### [address] [address] LABORATORYOrdered By: Lilia Espinoza on 05-27-2023 Wxjug-[id number]-Kvsorlelhihil .placental Ql (Vag fld) Negative (03/06/23 5:57 [...] SS CNCOon 11-12-2022 CNCO Letter Text Normal [facility] Bacteria Ur Culton 3 Bacteria identified Cx Nom (U) CULTURE, URINE: <10,000 CFU/ml Normal Urogenital Den Normal [facility] Comment on above: Performed By: #### 6 30-4 #### [facility] CLIA [id number] [address] ED NOTEon 10-29-2022 ED NOTE HNO ID: [id number] Author: Martinez Crouch RN Service: ? Author Type: Registered Nurse Type: ED Notes Filed: 10/28/2022 10:37 PM Note Text: Bed: 26-ED Expected date: Expected time: Means of arrival: Comments: triage Normal [facility] ED PROV NOTEon 10-29-2022 ED PROV NOTE HNO ID: [id number] Author: Danitza Reis DO Service: Emergency Medicine [...] BABS [place] CHRISTINA M 10/29/22 0323 Normal [facility] ED PROV NOTE HNO ID: [id number] Author: Danitza Reis DO Service: Emergency Medicine [...] was dehydrated. She follows with OB at [facility] in [place]. complicated by hyperemesis gravidarum and bleeding in [...] Temp Temp src Resp SpO2 Weight Height 10/28/221 10/28/22211010/28/22211110/28/22211010/28/22211010/28/22211010/28/22211010/28/222110 136/66 (!) 117 37 ?C (98.6 ?F) [...] sign, Rovsing (more content not included)... Normal [facility] EKGon 10-29-2022 Electrocardiogram Ventricular Rate : 129 BPM Atrial Rate : 129 BPM P-R Interval : 130 ms QRS Duration : 70 ms Q-T Interval : 300 ms QTC Calculation(Bazett) : 439 ms Calculated P Billings : 31 degrees Calculated R Billings : 66 degrees Calculated T Billings : -[address] & T WAVE ABNORMALITY, CONSIDER INFERIOR ISCHEMIA ST & T WAVE ABNORMALITY, CONSIDER ANTEROLATERAL ISCHEMIA ABNORMAL ECG WHEN COMPARED WITH ECG OF 31-MAY-2022 13:06, VENT. RATE HAS INCREASED BY 58 BPM T WAVE INVERSION NOW EVIDENT IN INFERIOR LEADS INVERTED T WAVES HAVE REPLACED NONSPECIFIC T WAVE ABNORMALITY IN ANTEROLATERAL LEADS Confirmed by DO REIS CHRISTINA ([id number]) on 10/29/2022 1:44:37 AM NAME : LUZ OLIVEIRA PID : [id number] : 2000 Gender : Female Race : [...] ANTEROLATERAL LEADS Confirmed by DO REIS CHRISTINA ([id number]) on 10/29/2022 1:44:37 AM Test Reason : Location : 4 : [place] [address] Overread By : DO REIS CHRISTINA Edited By : DO REIS CHRISTINA Referred By : , Acquired by : KASHIF JOHNSON Normal [facility] Urinalysis complete panel (U )on 10-29-2022 Bacteria LM.HPF (Urine sed) [#/Area] Few Abnormal None Seen [facility] Comment on above: Order Comment: Speci men Type: URINE SPECIMENOrdering Facility: [facility] Address: [address] [place] [address] Performed By: #### 2 4356-8 ####[facility] LABORATORYCLIA [id number] [address] [place] Bilirubin Ql (U) Negative Normal Negative [facility] Comment on above: Order Comment: Speci men Type: URINE SPECIMENOrdering Facility: [facility] Address: [address] [place] [address] Performed By: #### 2 4356-8 ####[facility] LABORATORYCLIA [id number] [address] [place] Clarity (Unsp spec) Turbid Abnormal Clear [facility] Comment on above: Order Comment: Speci men Type: URINE SPECIMENOrdering Facility: [facility] Address: [address] [place] [address] Performed By: #### 2 4356-8 ####[facility] LABORATORYCLIA [id number] [address] Color (U) Yellow Normal yellow [facility] Comment on above: Order Comment: Speci men Type: URINE SPECIMENOrdering Facility: [facility] Address: [address] [place] [place] [address] Performed By: #### 2 4356-8 ####[facility] LABORATORYCLIA [id number] [address] Epithelial cells LM.HPF (Urine sed) [#/Area] Few Normal [facility] Comment on above: Order Comment: Speci men Type: URINE SPECIMENOrdering Facility: [facility] Address: [address] [place] [address] Performed By: #### 2 4356-8 ####[facility] LABORATORYCLIA [id number] [address] Glucose Test strip (U) [Mass/Vol] Negative Normal Trace, Negative [facility] Comment on above: Order Comment: Speci men Type: URINE SPECIMENOrdering Facility: [facility] Address: [address] [place] [address] Performed By: #### 2 4356-8 ####[facility] LABORATORYCLIA [id number] [address] Hemoglobin Ql (U) 1+ Abnormal Negative, Trace [facility] Comment on above: Order Comment: Speci men Type: URINE SPECIMENOrdering Facility: [facility] Address: [address] [place] [address] Performed By: #### 2 4356-8 ####[facility] LABORATORYCLIA [id number] [address] Ketones Ql (U) 4+ Abnormal Negative, Trace [facility] Comment on above: Order Comment: Speci men Type: URINE SPECIMENOrdering Facility: [facility] Address: [address] [place] [address] Performed By: #### 2 4356-8 ####[facility] LABORATORYCLIA [id number] [address] Leukocyte esterase Test strip Ql (U) 25 Misti/mL Normal Negative, 25 Misti/mL [facility] Comment on above: Order Comment: Speci men Type: URINE SPECIMENOrdering Facility: [facility] Address: [address] [place] [address] Performed By: #### 2 4356-8 ####[facility] LABORATORYCLIA [id number] [address] Nitrite Ql (U) Negative Normal Negative [facility] Comment on above: Order Comment: Speci men Type: URINE SPECIMENOrdering Facility: [facility] Address: [address] [place] [address] Performed By: #### 2 4356-8 ####[facility] LABORATORYCLIA [id number] [address] pH (U) 6.0 [pH] Normal 5.0-8.0 [facility] Comment on above: Order Comment: Speci men Type: URINE SPECIMENOrdering Facility: [facility] Address: [address] [place] [address] Performed By: #### 2 4356-8 ####[facility] LABORATORYCLIA [id number] [address] Protein (U) [Mass/Vol] 1+ Abnormal Trace, Negative [facility] Comment on above: Order Comment: Speci men Type: URINE SPECIMENOrdering Facility: [facility] Address: [address] [place] [address] Performed By: #### 2 4356-8 ####[facility] LABORATORYCLIA [id number] [address] RBC LM.HPF (Urine sed) [#/Area] 6-10 /HPF Abnormal 0-3 /HPF [facility] Comment on above: Order Comment: Speci men Type: URINE SPECIMENOrdering Facility: [facility] Address: [address] [place] [address] Performed By: #### 2 4356-8 ####[facility] LABORATORYCLIA [id number] [address] Specific gravity (U) [Rel density] 1.029 Normal 1.005-1.030 [facility] Comment on above: Order Comment: Speci men Type: URINE SPECIMENOrdering Facility: [facility] Address: [address] [place] [address] Performed By: #### 2 4356-8 ####[facility] LABORATORYCLIA [id number] [address] Urobilinogen Ql (U) Normal Normal Negative [facility] Comment on above: Order Comment: Speci men Type: URINE SPECIMENOrdering Facility: [facility] Address: [address] [place] [address] Performed By: #### 2 4356-8 ####[facility] LABORATORYCLIA [id number] [address] [place] WBC LM.HPF (Urine sed) [#/Area] 0-5 /HPF Normal 0-5 /HPF [facility] Comment on above: Order Comment: Speci men Type: URINE SPECIMENOrdering Facility: [facility] Address: [address] [place] [address] Performed By: #### 2 4356-8 ####[facility] LABORATORYCLIA [id number] [address] STATES OF [facility] Basic metabolic 2000 panelon 10-28-2022 Anion gap [Moles/Vol] 15 mmol/L Normal 9-18 [facility] Comment on above: Order Comment: Speci men Type: BLOOD SPECIMENOrdering Facility: [facility] Address: [address] [place] [address] Performed By: #### 2 4321-2, 53765-2 ####[facility] LABORATORYCLIA [id number] [address] [place] Calcium [Mass/Vol] 10.1 mg/dL Normal 8.5-10.2 [facility] Comment on above: Order Comment: Speci men Type: BLOOD SPECIMENOrdering Facility: [facility] Address: [address] [place] [address] Performed By: #### 2 4321-2, ####[facility]ATORYCLIA [id number] [address] [place] Chloride [Moles/Vol] 102 mmol/L Normal 97-105 [facility] Comment on above: Order Comment: Speci men Type: BLOOD SPECIMENOrdering Facility: [facility] Address: [address] [place] [address] Performed By: #### 2 2, ####[facility]ORATORYCLIA [id number] [address] STATES OF [facility] CO2 [Moles/Vol] 22 mmol/L Normal 22-30 [facility] Comment on above: Order Comment: Speci men Type: BLOOD SPECIMENOrdering Facility: [facility] Address: [address] [place] [address] Performed By: #### 2 4320-11, ####[facility] [id number] [address] Creatinine [Mass/Vol] 0.61 mg/dL Normal 0.58-0.96 [facility] Comment on above: Order Comment: Speci men Type: BLOOD SPECIMENOrdering Facility: [facility] Address: [address] [place] [address] Performed By: #### 2 4320-11, ####[facility] [id number] [address] ESTIMATED GLOMERULAR FILTRATION RATE 129 mL/min/1.73m??? Normal >=60 [facility] Comment on above: Order Comment: Speci men Type: BLOOD SPECIMENOrdering Facility: [facility] Address: [address] [place] [address] Result Comment: Tierra mated Glomerular Filtration Rate [...] reflect actual GFR. Performed By: #### 2 4320-2, ####[facility] LABORATORYCLIA [id number] [place] [address] [place] Glucose [Mass/Vol] 86 mg/dL Normal 74-99 [facility] Comment on above: Order Comment: Speci men Type: BLOOD SPECIMENOrdering Facility: [facility] Address: [place] [address] Result Comment: The [place] [employer] (ADA) provides guidance for cutoff [...] Standards of Medical Care in Diabetes 2016, [place] [employer]. Diabetes Care. 2016.39(Suppl 1). Performed By: #### 2 4320-11, ####[facility]ORATORYCLIA [id number] [place] [address] [place] Potassium [Moles/Vol] 3.2 mmol/L Low 3.7-5.1 [facility] Comment on above: Order Comment: Eloise lopez Type: BLOOD SPECIMENOrdering Facility: [facility] Address: [place] [address] Performed By: #### 2 4320-11, ####[facility]ORATORYCLIA [id number] [place] [address] [place] Sodium [Moles/Vol] 139 mmol/L Normal 136-144 [facility] Comment on above: Order Comment: Speci jessica Type: BLOOD SPECIMENOrdering Facility: [facility] Address: [place] [address] Performed By: #### 2 4320-11, ####[facility]ATORYCLIA [id number] [place] [address] [place] Urea nitrogen [Mass/Vol] 5 mg/dL Low 7-21 [facility] Comment on above: Order Comment: Speci men Type: BLOOD SPECIMENOrdering Facility: [facility] Address: [address] [address] Performed By: #### 2 4321-2, 61620-7 ####[facility]ORATORYCLIA [id number] [place] [address] [place] CBC W Auto Differential pane l (Bld)on 10-28-2022 Basophils (Bld) [#/Vol] 10*3/uL Normal <0.11 [facility] Comment on above: Order Comment: Speci men Type: BLOOD SPECIMENOrdering Facility: [facility] Address: [address] [place] [address] Performed By: #### 5 7021-8 ####[facility]ATORYCLIA [id number] [place] [address] [place] Basophils/100 WBC (Bld) 0.1 % Normal [facility] Comment on above: Order Comment: Speci men Type: BLOOD SPECIMENOrdering Facility: [facility] Address: [address] [place] [address] Performed By: #### 5 7021-8 ####[facility]ATORYCLIA [id number] [address] [place] Differential cell count method Nom (Bld) Auto Normal [facility] Comment on above: Order Comment: Speci men Type: BLOOD SPECIMENOrdering Facility: [facility] Address: [address] [place] [address] Performed By: #### 5 7021-8 ####[facility]ATORYCLIA [id number] [place] [address] [place] Eosinophils (Bld) [#/Vol] 10*3/uL Normal <0.46 [facility] Comment on above: Order Comment: Speci men Type: BLOOD SPECIMENOrdering Facility: [facility] Address: [address] [place] [address] Performed By: #### 5 7021-8 ####[facility]ORYCLIA [id number] [address] Eosinophils/100 WBC (Bld) 0.1 % Normal [facility] Comment on above: Order Comment: Speci men Type: BLOOD SPECIMENOrdering Facility: [facility] Address: [address] [place] [address] Performed By: #### 5 7021-8 ####[facility]ATORYCLIA [id number] [address] [place] Erythrocyte distribution width (RBC) [Ratio] 13.8 % Normal 11.5-15.0 [facility] Comment on above: Order Comment: Speci men Type: BLOOD SPECIMENOrdering Facility: [facility] Address: [address] [place] [address] Performed By: #### 5 7021-8 ####[facility]ATORYCLIA [id number] [address] [place] Hematocrit (Bld) [Volume fraction] 38.2 % Normal 36.0-46.0 [facility] Comment on above: Order Comment: Speci men Type: BLOOD SPECIMENOrdering Facility: [facility] Address: [address] [place] [address] Performed By: #### 5 7021-8 ####[facility]ATORYCLIA [id number] [address] [place] Hemoglobin (Bld) [Mass/Vol] 13.5 g/dL Normal 11.5-15.5 [facility] Comment on above: Order Comment: Speci men Type: BLOOD SPECIMENOrdering Facility: [facility] Address: [address] [place] [address] Performed By: #### 5 7021-8 ####[facility]ATORYCLIA [id number] [address] [place] Immature granulocytes (Bld) [#/Vol] 0.04 10*3/uL Normal <0.10 [facility] Comment on above: Order Comment: Speci men Type: BLOOD SPECIMENOrdering Facility: [facility] Address: [address] [place] [address] Performed By: #### 5 7021-8 ####[facility]ATORYCLIA [id number] [address] Immature granulocytes/100 WBC (Bld) 0.5 % Normal [facility] Comment on above: Order Comment: Speci men Type: BLOOD SPECIMENOrdering Facility: [facility] Address: [address] [place] [address] Performed By: #### 5 7021-8 ####[facility]ATORYCLIA [id number] [address] OF [facility] Lymphocytes (Bld) [#/Vol] 1.53 10*3/uL Normal 1.00-4.00 [facility] Comment on above: Order Comment: Speci men Type: BLOOD SPECIMENOrdering Facility: [facility] Address: [address] [place] [address] Performed By: #### 5 7021-8 ####[facility]ATORYCLIA [id number] [address] Lymphocytes/100 WBC (Bld) 18.8 % Normal [facility] Comment on above: Order Comment: Speci men Type: BLOOD SPECIMENOrdering Facility: [facility] Address: [address] [place] [address] Performed By: #### 5 7021-8 ####[facility]ATORYCLIA [id number] [address] MCH (RBC) [Entitic mass] 31.6 pg Normal 26.0-34.0 [facility] Comment on above: Order Comment: Speci men Type: BLOOD SPECIMENOrdering Facility: [facility] Address: [address] [place] [address] Performed By: #### 5 7021-8 ####[facility]ATORYCLIA [id number] [address] STATES OF [facility] MCHC (RBC) [Mass/Vol] 35.3 g/dL Normal 30.5-36.0 [facility] Comment on above: Order Comment: Speci men Type: BLOOD SPECIMENOrdering Facility: [facility] Address: [address] [place] [address] Performed By: #### 5 7021-8 ####[facility]ATORYCLIA [id number] [address] [place] MCV (RBC) [Entitic vol] 89.5 fL Normal 80.0-100.0 [facility] Comment on above: Order Comment: Speci men Type: BLOOD SPECIMENOrdering Facility: [facility] Address: [address] [place] [address] Performed By: #### 5 7021-8 ####[facility]ATORYCLIA [id number] [address] [place] Monocytes (Bld) [#/Vol] 0.51 10*3/uL Normal <0.87 [facility] Comment on above: Order Comment: Speci men Type: BLOOD SPECIMENOrdering Facility: [facility] Address: [address] [place] [address] Performed By: #### 5 7021-8 ####[facility]ATORYCLIA [id number] [address] [place] Monocytes/100 WBC (Bld) 6.3 % Normal [facility] Comment on above: Order Comment: Speci men Type: BLOOD SPECIMENOrdering Facility: [facility] Address: [address] [place] [address] Performed By: #### 5 7021-8 ####[facility]ATORYCLIA [id number] [address] [place] Neutrophils (Bld) [#/Vol] 6.06 10*3/uL Normal 1.45-7.50 [facility] Comment on above: Order Comment: Speci men Type: BLOOD SPECIMENOrdering Facility: [facility] Address: [address] [place] [address] Performed By: #### 5 7021-8 ####[facility]ORATORYCLIA [id number] [place] [address] [place] Neutrophils/100 WBC (Bld) 74.2 % Normal [facility] Comment on above: Order Comment: Speci men Type: BLOOD SPECIMENOrdering Facility: [facility] Address: [address] [address] Performed By: #### 5 7021-8 ####[facility]ATORYCLIA [id number] [address] [place] Nucleated RBC (Bld) [#/Vol] 10*3/uL Normal <0.01 [facility] Comment on above: Order Comment: Speci men Type: BLOOD SPECIMENOrdering Facility: [facility] Address: [address] [place] [address] Performed By: #### 5 7021-8 ####[facility]ATORYCLIA [id number] [address] [place] Nucleated RBC/100 WBC (Bld) [Ratio] 0.0 /100 WBC Normal [facility] Comment on above: Order Comment: Speci men Type: BLOOD SPECIMENOrdering Facility: [facility] Address: [address] [address] Performed By: #### 5 7021-8 ####[facility]ATORYCLIA [id number] [address] [place] Platelet mean volume (Bld) [Entitic vol] 10.2 fL Normal 9.0-12.7 [facility] Comment on above: Order Comment: Speci men Type: BLOOD SPECIMENOrdering Facility: [facility] Address: [address] [address] Performed By: #### 5 7021-8 ####[facility]ATORYCLIA [id number] [place] [address] [place] Platelets (Bld) [#/Vol] 191 10*3/uL Normal 150-400 [facility] Comment on above: Order Comment: Speci men Type: BLOOD SPECIMENOrdering Facility: [facility] Address: [address] [address] Performed By: #### 5 7021-8 ####[facility]ATORYCLIA [id number] [address] RBC (Bld) [#/Vol] 4.27 10*6/uL Normal 3.90-5.20 [facility] Comment on above: Order Comment: Speci men Type: BLOOD SPECIMENOrdering Facility: [facility] Address: [address] [place] [address] Performed By: #### 5 7021-8 ####[facility]ATORYCLIA [id number] [address] WBC (Bld) [#/Vol] 8.16 10*3/uL Normal 3.70-11.00 [facility] Comment on above: Order Comment: Speci men Type: BLOOD SPECIMENOrdering Facility: [facility] Address: [address] [place] [address] Performed By: #### 5 7021-8 ####[facility]ATORYCLIA [id number] [address] ED Triage Noteon 10-28-2022 ED Triage Note HNO ID: [id number] Author: Dax Stevenson APRN.[employer]PORATE [employer] ASSISTANT Service: Emergency Medicine Author Type: Nurse Practitioner [...] CBC CMP EKG Urinalysis SIGNATURE: Dax Stevenson APRN.CORPORATE LAW ASSISTANT Normal [facility] Magnesium SerPl-mCncon 10-28 Magnesium [Mass/Vol] 1.8 mg/dL Normal 1.7-2.3 [facility] Comment on above: Order Comment: Speci men Type: BLOOD SPECIMENOrdering Facility: [facility] Address: [address] [address] Performed By: #### 2 4321-2, 11704-2 ####[facility]ORATORYCLIA [id number] [place] [address] [place] URINE OB DIP B/Oon 3 Glucose Ql (U) Negative Neg mg/dL [facility] Protein.monoclonal (U) [Mass/Vol] TRACE Abnormal Neg mg/dL [facility] CNCOon 08-21-2022 CNCO Letter Text Normal [facility] Bacteria Ur Culton 2 Bacteria identified Cx Nom (U) ORGANISM ID: 1 50,000-<100,000 CFU/ml Normal urogenital den Normal [facility] Comment on above: Performed By: #### 7 3752-8, 72664-6, 32623-9 #### [facility] CLIA [id number] [address] [place] [address] [place] C. trachomatis+N. gonorrhoea e DNA CHICHO+probe Ql (Unsp spec)on 08-19-2022 C. trachomatis DNA CHICHO+probe Ql (Unsp spec) Negative Normal Negative for Chlamydia trachomatis by amplificaton [facility] Comment on above: Order Comment: Speci men Type: SWAB Ordering Facility: [facility] Address: [address] [address] Performed By: #### 3 6902-5 #### [facility] CLIA [id number] [address] [place] [address] [place] N. gonorrhoeae DNA CHICHO+probe Ql (Unsp spec) Negative Normal Negative for Neisseria gonorrhoeae by amplification [facility] Comment on above: Order Comment: Speci men Type: SWAB Ordering Facility: [facility] Address: [address] [address] Performed By: #### 3 6902-5 #### [facility] CLIA [id number] [facility] [place] [address] [place] CBC panel Auto (Bld)on 08-19 Erythrocyte distribution width (RBC) [Ratio] 12.4 % Normal 11.5-15.0 [facility] Comment on above: Order Comment: Speci men Type: BLOOD SPECIMEN Ordering Facility: [facility] Address: [address] [place] [address] Performed By: #### 7 3752-8, 46776-0, 21484-8 #### [facility] CLIA [id number] [address] [place] [address] [place] Hematocrit (Bld) [Volume fraction] 40.5 % Normal 36.0-46.0 [facility] Comment on above: Order Comment: Speci men Type: BLOOD SPECIMEN Ordering Facility: [facility] Address: [address] [place] [address] Performed By: #### 7 3752-8, 13709-4, 22051-7 #### [facility] CLIA [id number] [address] [place] [address] [place] Hemoglobin (Bld) [Mass/Vol] 13.6 g/dL Normal 11.5-15.5 [facility] Comment on above: Order Comment: Speci men Type: BLOOD SPECIMEN Ordering Facility: [facility] Address: [address] [place] [address] Performed By: #### 7 3752-8, 09034-4, 39817-8 #### [facility] CLIA [id number] [address] [place] [address] [place] MCH (RBC) [Entitic mass] 30.8 pg Normal 26.0-34.0 [facility] Comment on above: Order Comment: Speci men Type: BLOOD SPECIMEN Ordering Facility: [facility] Address: [address] [place] [address] Performed By: #### 7 3752-8, 69242-8, 06084-2 #### [facility] CLIA [id number] [facility] [place] [address] [place] MCHC (RBC) [Mass/Vol] 33.6 g/dL Normal 30.5-36.0 [facility] Comment on above: Order Comment: Speci men Type: BLOOD SPECIMEN Ordering Facility: [facility] Address: [address] [place], [place] [address] Performed By: #### 7 3752-8, 55680-1, 46157-2 #### [facility] CLIA [id number] [address] [place] [address] [place] MCV (RBC) [Entitic vol] 91.8 fL Normal 80.0-100.0 [facility] Comment on above: Order Comment: Speci men Type: BLOOD SPECIMEN Ordering Facility: [facility] Address: [address] [place] [address] Performed By: #### 7 3752-8, 54020-6, 94561-0 #### [facility] CLIA [id number] [address] [place] [address] [place] Nucleated RBC (Bld) [#/Vol] 10*3/uL Normal <0.01 [facility] Comment on above: Order Comment: Speci men Type: BLOOD SPECIMEN Ordering Facility: [facility] Address: [address] [place], [place] [address] Performed By: #### 7 3752-8, 62288-7, 41888-5 #### [facility] CLIA [id number] [address] [place] [address] [place] Platelet mean volume (Bld) [Entitic vol] 10.5 fL Normal 9.0-12.7 [facility] Comment on above: Order Comment: Speci men Type: BLOOD SPECIMEN Ordering Facility: [facility] Address: [address] [place], [place] [address] Performed By: #### 7 3752-8, 76096-4, 51637-8 #### [facility] CLIA [id number] [address] [place] [address] [place] Platelets (Bld) [#/Vol] 247 10*3/uL Normal 150-400 [facility] Comment on above: Order Comment: Speci men Type: BLOOD SPECIMEN Ordering Facility: [facility] Address: [address] [place] [address] Performed By: #### 7 3752-8, 95590-1, 80136-3 #### [facility] CLIA [id number] [address] [place] [address] [place] RBC (Bld) [#/Vol] 4.41 10*6/uL Normal 3.90-5.20 [facility] Comment on above: Order Comment: Speci men Type: BLOOD SPECIMEN Ordering Facility: [facility] Address: [address] [place] [address] Performed By: #### 7 3752-8, 74338-0, 41859-6 #### [facility] CLIA [id number] [address] [place] [address] [place] WBC (Bld) [#/Vol] 7.20 10*3/uL Normal 3.70-11.00 [facility] Comment on above: Order Comment: Speci men Type: BLOOD SPECIMEN Ordering Facility: [facility] Address: [address] [place] [address] Performed By: #### 7 3752-8, 14235-4, 80943-2 #### [facility] CLIA [id number] [address] [place] [address] [place] Erythrocyte distribution width (RBC) [Ratio] 12.4 % 11.5 - 15.0 % [facility] Hematocrit (Bld) [Volume fraction] 40.5 % 36.0 - 46.0 % [facility] Hemoglobin (Bld) [Mass/Vol] 13.6 g/dL 11.5 - 15.5 g/dL [facility] MCH (RBC) [Entitic mass] 30.8 pg 26.0 - 34.0 pg [facility] MCHC (RBC) [Mass/Vol] 33.6 g/dL 30.5 - 36.0 g/dL [facility] MCV (RBC) [Entitic vol] 91.8 fL 80.0 - 100.0 fL [facility] Nucleated RBC (Bld) [#/Vol] <0.01 k/uL [facility] Platelet mean volume (Bld) [Entitic vol] 10.5 fL 9.0 - 12.7 fL [facility] Platelets (Bld) [#/Vol] 247 10*3/uL 150 - 400 k/uL [facility] RBC (Bld) [#/Vol] 4.41 10*6/uL 3.90 - 5.2 0 m/uL [facility] WBC (Bld) [#/Vol] 7.20 10*3/uL 3.70 - 11. 00 k/uL [facility] HBV surface Ab IA Ql (S)on 10-19-2021 HBV surface Ag Ql (S) Negative Normal Negative [facility] Comment on above: Order Comment: Eloise lopez Type: BLOOD SPECIMEN Ordering Facility: [facility] Address: [address] [place] [address] Performed By: #### 7 3752-8, 36006-6, 91979-8 #### [facility] CLIA [id number] [address] [place] [address] OF [facility] HCV Ab Ser Qlon 08-19-2022 HCV Ab Ql (S) Negative Normal Negative [facility] Comment on above: Order Comment: Eloise lopez Type: BLOOD SPECIMEN Ordering Facility: [facility] Address: [address] [place] [address] Result Comment: The result suggests no evidence of active infection with Hepatitis C virus. Should recent infection be suspected, repeat testing may be considered 4-6 weeks after this draw. Performed By: #### 7 3752-8, 11385-6, 04111-6 #### [facility] CLIA [id number] [address] [place] [address] [place] HIV 1+2 Ab IA Qlon 2 HIV 1 and 2 Ab IA.rapid Nom Normal [facility] Comment on above: Order Comment: Speci men Type: BLOOD SPECIMEN Ordering Facility: [facility] Address: [address] [place] [address] Result Comment: Test not indicated. Performed By: #### 7 3752-8, , #### [facility] CLIA [id number] [address] [place] [address] [place] HIV 1+2 Ab+HIV1 p24 Ag IA Ql Non-Reactive Normal Nonreactive [facility] Comment on above: Order Comment: Speci men Type: BLOOD SPECIMEN Ordering Facility: [facility] Address: [address] [place] [address] Performed By: #### 7 3752-8, , #### [facility] CLIA [id number] [address] [place] [address] [place] HIVINT Normal [facility] Comment on above: Order Comment: Speci men Type: BLOOD SPECIMEN Ordering Facility: [facility] Address: [address] [place] [address] Result Comment: No e vidence of HIV-1 or HIV-2 infection. Should recent infection be suspected, repeat testing may be considered 2-3 weeks after this draw. [place] Rev. Code 3701.243(E): This information has been [...] or diagnoses. Performed By: #### 7 3752-8, , #### [facility] CLIA [id number] [address] [place] [address] [place] No Panel Informationon 08-19 [facility] PAP FLUID CERVICAL SCREENING on 08-19-2022 CASE REPORT Normal [facility] Comment on above: Order Comment: Speci men Type: FLUID SPECIMEN Ordering Facility: [facility] Address: [address] [place], [place] [id number] Result Comment: Gyne cologic Cytology Report Case: [id number] Authorizing Provider: Braulio Hollingsworth MD Collected: 08/19/2022 02:46 PM Ordering Location: Obstetrics/Gynecology Received: 08/20/2022 12:38 PM First Screen: Shelby Umaña, [place], ASCP Rescreen: Wandy Fraser, CT, ASCP Specimen: Pap, Lead Esthetician, Screening, CERVICAL SCREENING FLUID Performed By: #### L [id number] #### [facility] CLIA [id number] [address] [place] [address] [place] CLINICAL HISTORY ABNORMAL PAP[LGSIL i n 2020 in [place] Normal [facility] Comment on above: Order Comment: Speci men Type: FLUID SPECIMEN Ordering Facility: [facility] Address: [address] [place] [address] Performed By: #### L [id number] #### [facility] CLIA [id number] [facility] [place] [address] [place] CYTOLOGY INTERPRETATION PAP Normal [facility] Comment on above: Order Comment: Speci men Type: FLUID SPECIMEN Ordering Facility: [facility] Address: [address] [place] [address] Result Comment: Nega tive for Intraepithelial lesion or malignancy. Performed By: #### L [id number] #### [facility] CLIA [id number] [address] [place] FINAL DIAGNOSIS Normal [facility] Comment on above: Order Comment: Speci men Type: FLUID SPECIMEN Ordering Facility: [facility] Address: [address] [place] [address] Result Comment: A - CERVICAL SCREENING FLUID Satisfactory for interpretation, Excess blood Negative for Intraepithelial lesion or malignancy. Performed By: #### L [id number] #### [facility] CLIA [id number] [address] [place] [address] [place] FINAL PERFORMING LAB Normal [facility] Comment on above: Order Comment: Speci men Type: FLUID SPECIMEN Ordering Facility: [facility] Address: [address] Result Comment: Tech nical component, teaching artist screening performed at [facility], [address] [facility] [address] CLIA# [id number] Diagnostic interpretation performed at [facility], [facility] [address] CLIA# [id number] Harness Fitter: Adam Farah M.D. Performed By: #### L [id number] #### [facility] CLIA [id number] [address] [place] [address] [place] GROSS DESCRIPTION Normal [facility] Comment on above: Order Comment: Speci men Type: FLUID SPECIMEN Ordering Facility: [facility] Address: [address] Result Comment: A. C ERVICAL SCREENING FLUID Glacial Acetic Acid added. Performed By: #### L [id number] #### [facility] CLIA [id number] [address] [place] [address] [place] HPV REQUESTED? Yes, Reflex HPV for ASCUS Normal [facility] Comment on above: Order Comment: Speci men Type: FLUID SPECIMEN Ordering Facility: [facility] Address: [address] [place] [address] Performed By: #### L [id number] #### [facility] CLIA [id number] [facility] [place] [address] [place] LMP 06/21/2022() Normal [facility] Comment on above: Order Comment: Speci men Type: FLUID SPECIMEN Ordering Facility: [facility] Address: [address] [place] [address] Performed By: #### L [id number] #### [facility] CLIA [id number] [address] [place] [address] PAP DISCLAIMER COMMENT The Pap Smear is a screening test for cervical cancer. False negative results occur with all screening tests, emphasizing the need for rescreening at recommended intervals, and clinical correlation. Normal [facility] Comment on above: Order Comment: Speci men Type: FLUID SPECIMEN Ordering Facility: [facility] Address: [address] [place] [address] Performed By: #### L [id number] #### [facility] CLIA [id number] [address] [place] [address] PAP EMERGENCY MEDICINE NURSE PRACTITIONER COMMENT This specimen has been analyzed by the ThinPrep Imaging System, an automated imaging and review system, which assists the laboratory in evaluating cells on ThinPrep Pap tests. Following automated imaging, selected francis from every slide are reviewed by a teaching artist. Normal [facility] Comment on above: Order Comment: Speci men Type: FLUID SPECIMEN Ordering Facility: [facility] Address: [address] [place] [address] Performed By: #### L [id number] #### [facility] CLIA [id number] [address] [place] [address] OF JUNE RUBELLA IGG ABon 08-19-2022 RUBELLA IGG AB, QUAL Positive Normal Positive [facility] Comment on above: Order Comment: Speci men Type: BLOOD SPECIMEN Ordering Facility: [facility] Address: [address] [place] [address] Result Comment: The result suggests recent or past exposure to Rubella virus or history of Rubella vaccination. Positive result may also be seen due to presence of passively-transferred antibodies. Please correlate with patient's history. Performed By: #### 7 3752-8, 73992-9, 62577-5 #### [facility] CLIA [id number] [address] [place] [address] [place] Reagin and Treponema pallidu m IgG and IgM [Interp]on 08-19-2022 SYPHILIS INTERPRETATION Cannot exclude recent Treponemal infection if specimen collected within 7-10 days after appearance of suspect lesions or 2-3 weeks after an exposure. Clinical correlation is required. Normal [facility] Comment on above: Order Comment: Speci men Type: BLOOD SPECIMEN Ordering Facility: [facility] Address: [address] [place] [address] Performed By: #### 7 3752-8, 63464-1, 71135-1 #### [facility] CLIA [id number] [address] [place] [address] [place] T. pallidum IgG+IgM IA Ql (S) Non-Reactive Normal Nonreactive [facility] Comment on above: Order Comment: Speci men Type: BLOOD SPECIMEN Ordering Facility: [facility] Address: [address] [place], [place] [address] Performed By: #### 7 3752-8, 08235-8, 93574-1 #### [facility] CLIA [id number] [address] [place] [address] [place] TSH BLDon 08-19-2022 TSH Qn 1.190 m[IU]/L 0.270 - 4.200 mIU/L [facility] TSH SerPl-aCncon 08-19-2022 TSH Qn 1.190 m[IU]/L Normal 0.270-4.200 [facility] Comment on above: Order Comment: Speci men Type: BLOOD SPECIMEN Ordering Facility: [facility] Address: [address] [place], [place] [address] Result Comment: If t he patient is , TSH reference range varies by gestational period: First Trimester (weeks 9-12): 0.180-2.990 mIU/L Second Trimester: 0.110-3.980 mIU/L Third Trimester: 0.480-4.710 mIU/L Rafiq Winston et al. A Practical Approach for the Verifications and Determination of Site- and Trimester-Specific Reference Intervals for Thyroid Function tests in . Thyroid, 2019:29:3:412-420. William E, et al. 2017 Guidelines of the [place] Thy[employer] for the Diagnosis and Management of Thyroid Disease during and the . Thyroid, 2017:27:3:315-389. Performed By: #### 3 016-3 #### [facility] CLIA [id number] [address] OF [facility] TYPE + SCREEN PRENATALon ABO O [facility] HIstorical Ab Scr Status Negative [facility] Rh Nom (Bld) Positive [facility] Type and Screen Expiration 08/22/2022 23:59 [facility] ABO O Normal [facility] Comment on above: Order Comment: Speci men Type: BLOOD SPECIMEN Ordering Facility: [facility] Address: [address] [place] [address] Performed By: #### T SPN #### [facility] CLIA [id number] [address] HISTORICAL AB SCR STATUS Negative Normal [facility] Comment on above: Order Comment: Speci men Type: BLOOD SPECIMEN Ordering Facility: [facility] Address: [address] [place] [address] Performed By: #### T SPN #### [facility] CLIA [id number] [address] Rh Nom (Bld) Positive Normal [facility] Comment on above: Order Comment: Speci men Type: BLOOD SPECIMEN Ordering Facility: [facility] Address: [address] [place] [address] Performed By: #### T SPN #### [facility] CLIA [id number] [address] TYPE AND SCREEN EXPIRATION 08/22/2022 23:59 Normal [facility] Comment on above: Order Comment: Speci men Type: BLOOD SPECIMEN Ordering Facility: [facility] Address: [address] [place] [address] Performed By: #### T SPN #### [facility] CLIA [id number] [address] URINE OB DIP B/Oon 2 Glucose Ql (U) Negative Neg mg/dL [facility] Protein.monoclonal (U) [Mass/Vol] Negative Neg mg/dL [facility] CONFIRM BLOOD TYPEon 022 ABO O Normal [facility] Comment on above: Order Comment: Speci men Type: BLOOD SPECIMEN Ordering Facility: [facility] Address: [address] [place] [address] Performed By: #### C ONABO #### [facility] [place] [id number] [address] Rh Nom (Bld) Positive Normal [facility] Comment on above: Order Comment: Speci men Type: BLOOD SPECIMEN Ordering Facility: [facility] Address: [address] [place] [address] Performed By: #### C ONABO #### [facility] [place] [id number] [address] ED Triage Noteon 08-14-2022 ED Triage Note HNO ID: [id number] Author: Kaushik Justice APRN.CORPORATE LAW ASSISTANT Service: Emergency Medicine Author Type: Nurse Practitioner Type: ED Triage Notes Filed: 08/14/2022 5:56 PM Note Text: ED INTAKE NOTE Patient Name: Luz Oliveira Service Date: 08/14/22 BRIEF HPI: Patient is a 21-year-old female, G1, P0 who is approximately 7 weeks gestation presents with complaints of vaginal bleeding in . She has been spotting for about a week. She was previously seen at [place] [facility] where she states she had an [...] positive send OB triage SIGNATURE: Kaushik Justice APRN.CORPORATE LAW ASSISTANT Normal [facility] TYPE + SCREEN PRENATALon ABO O Normal [facility] Comment on above: Order Comment: Speci men Type: BLOOD SPECIMEN Ordering Facility: [facility] Address: [address] [place] [address] Performed By: #### T SPN #### [facility] CLIA [id number] [address] HISTORICAL AB SCR STATUS Negative [facility] Comment on above: Order Comment: Speci men Type: BLOOD SPECIMEN Ordering Facility: [facility] Address: [address] [place] [address] Performed By: #### T SPN #### [facility] CLIA [id number] [address] [place] [address] Rh Nom (Bld) Positive Normal [facility] Comment on above: Order Comment: Speci men Type: BLOOD SPECIMEN Ordering Facility: [facility] Address: [address] [place] [address] Performed By: #### T SPN #### [facility] CLIA [id number] [address] [place] [address] TYPE AND SCREEN EXPIRATION 08/17/2022 23:59 Normal [facility] Comment on above: Order Comment: Speci men Type: BLOOD SPECIMEN Ordering Facility: [facility] Address: [address] [place] [address] Performed By: #### T SPN #### [facility] CLIA [id number] [address] [place] [address] CNPNon 08-10-2022 CNPN Telephone (OBEM) LUZ [id number]) 2000 F Date Time Provider Department 08/10/22 VENTURA HOLLINGSWORTHIM OBGMEM During your visit today, we recorded the [...] Status:Closed by NISA MURPHY on 11/11/22 Normal [facility] Absolute lymphocyte counton 08-09-2022 Lymphocytes Auto (Unsp spec) [#/Vol] 1.23 10*3/uL 0.83-4.51 [facility] Work Phone: Basophil percentageon 2021 Basophils/100 WBC (Bld) 0.2 % 0-1 [facility] Work Phone: Bilirubin [Mass/Vol] 0.50 mg/dL 0.20-1.00 [facility] Work Phone: Comment on above: For patients on eltr ombopag therapy, use of Dimension [place] TBIL is not recommended. Chloride [Moles/Vol] 107 mmol/L 98-107 [facility] Work Phone: Eosinophils/100 WBC (Bld) 0.3 % 0-5 [facility] Work Phone: Glucose [Mass/Vol] 122 mg/dL 74-106 [facility] Work Phone: Comment on above: Fasting Glucose resu lt from 100 to 125 mg/dL suggests IMPAIRED HOMEOSTASIS per A.D.A. criteria. Neutrophils (Bld) [#/Vol] 4.2 10*3/uL 2.0-7.7 [facility] Work Phone: Neutrophils/100 WBC (Bld) 71.9 % 47-70 [facility] Work Phone: Potassium [Moles/Vol] 3.5 mmol/L 3.5-5.1 [facility] Work Phone: Protein [Mass/Vol] 7.3 g/dL 6.4-8.2 [facility] Work Phone: Sodium [Moles/Vol] 139 mmol/L 136-145 [facility] Work Phone: WBC (Bld) [#/Vol] 5.9 10*3/uL 4.4-11.0 [facility] Work Phone: Basophil percentage 0 SEEN /hpf 0-5 [facility] Work Phone: Beta hCG serum qualon 2021 Beta HCG ( test) Ql Negative [facility] Work Phone: Comment on above: TEST is *P OSITIVE* Bilirubin Test strip Ql (U)o n 08-09-2022 Bilirubin Ql (U) Negative Negative [facility] Work Phone: Blood erythrocytes count (nu mber/volume)on 08-09-2022 RBC (Bld) [#/Vol] 4.26 10*6/uL 4.2-5.4 [facility] Work Phone: Blood hemoglobin measurement (mass/volume)on 08-09-2022 Hemoglobin (Bld) [Mass/Vol] 13.4 g/dL 12.0-15.0 [facility] Work Phone: Blood lymphocytes/100 leukoc yteson 08-09-2022 Lymphocytes/100 WBC (Bld) 21.0 % 19-41 [facility] Work Phone: Blood monocytes/100 leukocyt eson 08-09-2022 Monocytes/100 WBC (Bld) 6.3 % 0-10 [facility] Work Phone: Blood platelet mean volumeon 08-09-2022 Platelet mean volume (Bld) [Entitic vol] 10.1 fL 6.2-12.0 [facility] Work Phone: Determination of erythrocyte mean corpuscular volume (MCV)on 08-09-2022 MCV (RBC) [Entitic vol] 91.8 fL 81-99 [facility] Work Phone: Hematocrit Auto (Bld) [Volum e fraction]on 08-09-2022 Hematocrit (Bld) [Volume fraction] 39.1 % 37-47 [facility] Work Phone: Ketones Test strip Ql (U)on 08-09-2022 Ketones Ql (U) Negative Negative [facility] Work Phone: [phone] Laboratory - Chemistry and C hemistry - challengeon 08-09-2022 ALP [Catalytic activity/Vol] 56 U/L 45-117 [facility] Work Phone: [phone] ALT [Catalytic activity/Vol] 67 U/L 13-56 [facility] Work Phone: [phone] CO2 [Moles/Vol] 25.0 mmol/L 21.0-32.0 [facility] Work Phone: [phone] Globulin (S) [Mass/Vol] 3.5 g/dL 2.2-4.2 [facility] Work Phone: [phone] Urea nitrogen/Creatinine [Mass ratio] 9.7 mg/mg 10-20 [facility] Work Phone: [phone] Laboratory - Hematology and Cell countson 08-09-2022 Erythrocyte distribution width (RBC) [Entitic vol] 42.5 fL 35.1-43.9 [facility] Work Phone: [phone] Erythrocyte distribution width (RBC) [Ratio] 12.8 % 11.6-14.6 [facility] Work Phone: [phone] Immature granulocytes/100 WBC (Bld) 0.300 % 0.0-0.9 [facility] Work Phone: [phone] Comment on above: IG% - Immature Granu locytes (promyelocytes, myelocytes and metamyelocytes) > 1% indicates that a LEFT SHIFT is Present. MCH (RBC) [Entitic mass] 31.5 pg 27.0-32.0 [facility] Work Phone: [phone] Nucleated RBC/100 WBC (Bld) [Ratio] 0 % 0-5 [facility] Work Phone: [phone] MCHC Auto (RBC) [Mass/Vol]on 08-09-2022 MCHC (RBC) [Mass/Vol] 34.3 g/dL 32-36 [facility] Work Phone: [phone] Mucus LM Ql (Urine sed)on Mucus Ql (Urine sed) 0 SEEN /hpf [facility] Work Phone: Nitrite Test strip Ql (U)on 08-09-2022 Nitrite Ql (U) Negative Negative [facility] Work Phone: No Panel Informationon 08-09 Estimated Creatinine Clearance Calc 81.20 ml/min [facility] Work Phone: Estimated GFR (MDRD) Amer 111 mL/min >60 [facility] Work Phone: Comment on above: GFR Calc Estimated GFR (MDRD) Non-Af Amer 91 mL/min >60 [facility] Work Phone: Comment on above: Non- GFR Calc Platelets bldon 08-09-2022 Platelets (Bld) [#/Vol] 224 10*3/uL 150-450 [facility] Work Phone: Protein Test strip Ql (U)on 08-09-2022 Protein Ql (U) Negative Negative [facility] Work Phone: Serum or plasma albumin sabino urement (mass/volume)on 08-09-2022 Albumin [Mass/Vol] 3.8 g/dL 3.2-5.0 [facility] Work Phone: Serum or plasma albumin/glob ulin mass ratioon 08-09-2022 Albumin/Globulin [Mass ratio] 1.1 {ratio} 0.9-2.4 [facility] Work Phone: [phone] Serum or plasma calcium sabino urement (mass/volume)on 08-09-2022 Calcium [Mass/Vol] 9.2 mg/dL 8.5-10.1 [facility] Work Phone: [phone] Serum or plasma choriogonado tropin detectionon 08-09-2022 HCG ( [place]) [place] [address] mIU/mL <4 [facility] Work Phone: Comment on above: hCG levels with Gest ational AgeGestational Age hCG mIU/mL (IU/L)0.2 - 1 week 5 - 501-2 weeks 50 - 5002-3 weeks 100 - 81361-1 weeks 500 - 880095-5 weeks 1000 - 565603-5 weeks 46968 - 100,0006-8 weeks 60793 - 200,0002-3 months 22659 - 100,000 Serum or plasma creatinine m easurement (mass/volume)on 08-09-2022 Creatinine [Mass/Vol] 0.82 mg/dL 0.55-1.02 [facility] Work Phone: Comment on above: The validity of the calculated GFR & GFRAA in patients over 70 years has not been determined. Clinical correlation is essential. Serum or plasma urea nitroge n measurement (mass/volume)on 08-09-2022 Urea nitrogen [Mass/Vol] 8 mg/dL 7-18 [facility] Work Phone: Squamous epithelial cells de tection in urine sediment by light microscopyon 08-09-2022 Epithelial cells.squamous LM Ql (Urine sed) 0-5 SEEN /hpf 5-10 [facility] Work Phone: Thin prep Papanicolaou smear with manual screeningon 08-09-2022 Thin prep Papanicolaou smear with manual screening 38 U/L 15-37 [facility] Work Phone: Thin prep Papanicolaou smear with manual screening 7 5-15 [facility] Work Phone: Urine blood detectionon 07-13 RBC Ql (U) 25 /ul Negative [facility] Work Phone: RBC Ql (U) 0 SEEN /hpf 0-5 [facility] Work Phone: Urine clarityon 08-09-2022 Clarity (U) Clear Clear [facility] Work Phone: Urine color determinationon 08-09-2022 Color (U) Yellow Yellow [facility] Work Phone: Urine glucose detectionon Glucose Ql (U) Normal mg/dl Normal [facility] Work Phone: Urine leukocyte esterase det ection by dipstickon 08-09-2022 Leukocyte esterase Test strip Ql (U) 25 /ul Negative [facility] Work Phone: Urine pHon 08-09-2022 pH (U) 7.0 [pH] 5.0 - 8.0 [facility] Work Phone: Urine sediment bacteria coun t by microscopy (number/high power field)on 08-09-2022 Bacteria LM.HPF (Urine sed) [#/Area] 0 /[HPF] None Seen [facility] Work Phone: Urine specific gravity measu rementon 08-09-2022 Specific gravity (U) [Rel density] 1.010 1.002-1.030 [facility] Work Phone: Urobilinogen Auto test strip Ql (U)on 08-09-2022 Urobilinogen Ql (U) Normal mg/dl Normal [facility] Work Phone: CBCon 08-04-2022 Hematocrit (Bld) [...] vol] 9.9 fL 7.4 - 12.4 fL [facility] Comment on above: MPV is a calculated measurement using platelet volume ratio. Platelets (Bld) [#/Vol] 217 10*3/uL 140 - 440 10*3/uL [facility] RBC (Bld) [#/Vol] 4.27 10*6/uL 3.80 - 5.2 0 10*6/uL [facility] WBC (Bld) [#/Vol] 5.4 10*3/uL 3.6 - 10.7 10*3/uL [facility] Test Performed by [facility], [address] , [address] LAB [facility] HCG, QUANTITATIVE, on 08-04-2022 hCG Quant 3840 m[IU]/mL [facility] Comment on above: Females < 5 [...] or gestational trophoblastic disease. Test Performed by [facility], [address] , [address] LAB [facility] Hemogramon 08-04-2022 Erythrocyte distribution width (RBC) [Ratio] 12.8 % Normal 11.5-14.5 [facility] Comment on above: Performed By: #### H LIONEL QWNT5 #### [facility] [address] [place] [address] Hematocrit (Bld) [Volume fraction] 39.2 % Normal 35.0-47.0 [facility] Comment on above: Performed By: #### H LIONEL QWNT5 #### [facility] [address] [place] [address] Hemoglobin (Bld) [Mass/Vol] 13.4 g/dL Normal 11.7-16.0 [facility] Comment on above: Performed By: #### H Paul [id number] #### [facility] [address] [place] [address] MCH (RBC) [Entitic mass] 31.4 pg Normal 26.0-34.0 [facility] Comment on above: Performed By: #### H EMOG, QWNT5 #### [facility] [address] [place] [address] MCHC 34.2 % Normal 32.0-36.0 [facility] Comment on above: Performed By: #### H EMOG, QWNT5 #### [facility] [address] [place] [address] MCV (RBC) [Entitic vol] 91.8 fL Normal 79.0-98.0 [facility] Comment on above: Performed By: #### H EMOG, QWNT5 #### [facility] [address] [place] [address] Platelet mean volume (Bld) [Entitic vol] 9.9 fL Normal 7.4-12.4 [facility] Comment on above: Result Comment: MPV is a calculated measurement using platelet volume ratio. Performed By: #### H EMOG, QWNT5 #### [facility] [address] [place] [address] Platelets (Bld) [#/Vol] 217 10*3/uL Normal 140-440 [facility] Comment on above: Performed By: #### H EMOG, QWNT5 #### [facility] [address] [place] [address] RBC (Bld) [#/Vol] 4.27 10*6/uL Normal 3.80-5.20 [facility] Comment on above: Performed By: #### H EMOG, QWNT5 #### [facility] [address] [place] [address] WBC (Bld) [#/Vol] 5.4 10*3/uL Normal 3.6-10.7 [facility] Comment on above: Performed By: #### H EMOG, QWNT5 #### [facility] [address] [place] [address] GELon 08-04-2022 GEL ABO Group: O Rh, Gel: POS Antibody Screen Gel: NEG Normal [facility] Comment on above: Performed By: #### P NGL #### [facility] TYPE AND SCREENon 1 ABO Grouping O [facility] Work Phone: Rh Type Positive [facility] Work Phone: Test Performed by [facility], [address] , [place], [place] [address] [place] [address] LAB [facility] Work Phone: US OB TRANSVAGINALon Patient Name: LUZ OLIVEIRA Ultrasound ACCESSION EXAM DATE/TIME PROCEDURE ORDERING PROVIDER [id number] 08/04/2022 12:05 EDT [place] [id number] -KATIRAI, ANIS Transvaginal CPT code 10066 Reason For Exam (US Transvaginal) 7 weeks [...] ALFRED Transcribed Date and Time: 08/04/2022 12:31 CLAIRE [facility] Silas Abreu DO - 08/04/2022 Patient Name: LUZ OLIVEIRA Ultrasound ACCESSION EXAM DATE/TIME PROCEDURE ORDERING PROVIDER [id number] 08/04/2022 12:05 EDT [place] [id number] HARRISON Transvaginal CPT code 95812 Reason For Exam (US Transvaginal) 7 weeks [...] Ultrasound ACCESSION EXAM DATE/TIME PROCEDURE ORDERING PROVIDER [id number] 08/04/2022 12:05 EDT [place] [id number] HARRISON Transvaginal CPT code 97531 Reason For Exam (US Transvaginal) 7 weeks [...] Transcribed Date and Time: 08/04/2022 12:31 Normal [facility] hCG Quantitativeon hCG Quantitative 3840 m[IU]/mL Normal [facility] Comment on above: Result Comment: Fema les [...] gestational trophoblastic disease. Performed By: #### [facility] #### [facility] [place] [place] [address] [facility] CN[facility] Letter Text Normal [facility] CNPLizy 07-09-2022 CNPN Telephone ([facility]) LUZ OLIVEIRA ([id number]) 2000 F Date Time Provider Department 07/09/22 [...] Verónica Alegre July 09, 2022 12:24 PM Allergies [...] (FLONASE) 50 mcg/actuation nasal spray Use 1 [place] in each nostril once daily. 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] 07/10/2014 Headache [R51] 07/10/2014 Unintentional weight loss [R63.4] 07/10/2014 Papanicolaou smear of cervix with low grade squ*05/21/2021 Letter Text Encounter Status:Closed by VERÓNICA ALEGRE on 07/09/22 [facility] Absolute lymphocyte counton 06-29-2022 Lymphocytes Auto (Unsp spec) [#/Vol] 1.79 10*3/uL 0.83-4.51 [facility] Work Phone: Basophil percentageon 2021 Basophil percentage 0-5 SEEN /hpf 0-5 [facility] Work Phone: Basophils/100 WBC (Bld) 0.1 % 0-1 [facility] Work Phone: Chloride [Moles/Vol] 106 mmol/L 98-107 [facility] Work Phone: Eosinophils/100 WBC (Bld) 0.2 % 0-5 [facility] Work Phone: Glucose [Mass/Vol] 98 mg/dL 74-106 [facility] Work Phone: Neutrophils (Bld) [#/Vol] 6.1 10*3/uL 2.0-7.7 [facility] Work Phone: Neutrophils/100 WBC (Bld) 72.2 % 47-70 [facility] Work Phone: Potassium [Moles/Vol] 3.9 mmol/L 3.5-5.1 [facility] Work Phone: Sodium [Moles/Vol] 142 mmol/L 136-145 [facility] Work Phone: WBC (Bld) [#/Vol] 8.5 10*3/uL 4.4-11.0 [facility] Work Phone: Beta hCG serum qualon 2021 Beta HCG ( test) Ql Negative [facility] Work Phone: Bilirubin Test strip Ql (U)o n 06-29-2022 Bilirubin Ql (U) Negative Negative [facility] Work Phone: Blood erythrocytes count (nu mber/volume)on 06-29-2022 RBC (Bld) [#/Vol] 4.44 10*6/uL 4.2-5.4 [facility] Work Phone: Blood hemoglobin measurement (mass/volume)on 06-29-2022 Hemoglobin (Bld) [Mass/Vol] 13.7 g/dL 12.0-15.0 [facility] Work Phone: Blood lymphocytes/100 leukoc yteson 06-29-2022 Lymphocytes/100 WBC (Bld) 21.2 % 19-41 [facility] Work Phone: [phone] Blood monocytes/100 leukocyt eson 06-29-2022 Monocytes/100 WBC (Bld) 5.8 % 0-10 [facility] Work Phone: Blood platelet mean volumeon 06-29-2022 Platelet mean volume (Bld) [Entitic vol] 9.9 fL 6.2-12.0 [facility] Work Phone: Determination of erythrocyte mean corpuscular volume (MCV)on 06-29-2022 MCV (RBC) [Entitic vol] 90.5 fL 81-99 [facility] Work Phone: Hematocrit Auto (Bld) [Volum e fraction]on 06-29-2022 Hematocrit (Bld) [Volume fraction] 40.2 % 37-47 [facility] Work Phone: Ketones Test strip Ql (U)on 06-29-2022 Ketones Ql (U) Negative Negative [facility] Work Phone: Laboratory - Chemistry and C hemistry - challengeon 06-29-2022 CO2 [Moles/Vol] 28.0 mmol/L 21.0-32.0 [facility] Work Phone: Urea nitrogen/Creatinine [Mass ratio] 23.1 mg/mg 10-20 [facility] Work Phone: Laboratory - Hematology and Cell countson 06-29-2022 Erythrocyte distribution width (RBC) [Entitic vol] 41.0 fL 35.1-43.9 [facility] Work Phone: [phone] Erythrocyte distribution width (RBC) [Ratio] 12.7 % 11.6-14.6 [facility] Work Phone: [phone] Immature granulocytes/100 WBC (Bld) 0.500 % 0.0-0.9 [facility] Work Phone: [phone] Comment on above: IG% - Immature Granu locytes (promyelocytes, myelocytes and metamyelocytes) > 1% indicates that a LEFT SHIFT is Present. MCH (RBC) [Entitic mass] 30.9 pg 27.0-32.0 [facility] Work Phone: [phone] Nucleated RBC/100 WBC (Bld) [Ratio] 0 % 0-5 [facility] Work Phone: [phone] MCHC Auto (RBC) [Mass/Vol]on 06-29-2022 MCHC (RBC) [Mass/Vol] 34.1 g/dL 32-36 [facility] Work Phone: [phone] Mucus LM Ql (Urine sed)on Mucus Ql (Urine sed) 0 SEEN /hpf [facility] Work Phone: [phone] Nitrite Test strip Ql (U)on 06-29-2022 Nitrite Ql (U) Negative Negative [facility] Work Phone: [phone] Panel Informationon 06-29 Estimated Creatinine Clearance Calc 89.98 ml/min [facility] Work Phone: [phone] Estimated GFR (MDRD) Amer 126 mL/min >60 [facility] Work Phone: [phone] Comment on above: GFR Calc Estimated GFR (MDRD) Non-Af Amer 104 mL/min >60 [facility] Work Phone: [phone] Comment on above: Non- GFR Calc Platelets bldon 06-29-2022 Platelets (Bld) [#/Vol] 287 10*3/uL 150-450 [facility] Work Phone: [phone] Protein Test strip Ql (U)on 06-29-2022 Protein Ql (U) 30 mg/dl Negative [facility] Work Phone: Serum or plasma calcium sabino urement (mass/volume)on 06-29-2022 Calcium [Mass/Vol] 9.7 mg/dL 8.5-10.1 [facility] Work Phone: Serum or plasma creatinine m easurement (mass/volume)on 06-29-2022 Creatinine [Mass/Vol] 0.74 mg/dL 0.55-1.02 [facility] Work Phone: Comment on above: The validity of the calculated GFR & GFRAA in patients over 70 years has not been determined. Clinical correlation is essential. Serum or plasma urea nitroge n measurement (mass/volume)on 06-29-2022 Urea nitrogen [Mass/Vol] 17 mg/dL 7-18 [facility] Work Phone: Squamous epithelial cells de tection in urine sediment by light microscopyon 06-29-2022 Epithelial cells.squamous LM Ql (Urine sed) 0-5 SEEN /hpf 5-10 [facility] Work Phone: Thin prep Papanicolaou smear with manual screeningon 06-29-2022 Thin prep Papanicolaou smear with manual screening 8 5-15 [facility] Work Phone: Urine blood detectionon 06-11 RBC Ql (U) 25 /ul Negative [facility] Work Phone: RBC Ql (U) 0-5 SEEN /hpf 0-5 [facility] Work Phone: Urine clarityon 06-29-2022 Clarity (U) Clear Clear [facility] Work Phone: Urine color determinationon 06-29-2022 Color (U) Yellow Yellow [facility] Work Phone: Urine glucose detectionon Glucose Ql (U) Normal mg/dl Normal [facility] Work Phone: Urine leukocyte esterase det ection by dipstickon 06-29-2022 Leukocyte esterase Test strip Ql (U) 25 /ul Negative [facility] Work Phone: Urine pHon 06-29-2022 pH (U) 6.5 [pH] 5.0 - 8.0 [facility] Work Phone: Urine sediment bacteria coun t by microscopy (number/high power field)on 06-29-2022 Bacteria LM.HPF (Urine sed) [#/Area] 0 /[HPF] None Seen [facility] Work Phone: Urine specific gravity measu rementon 06-29-2022 Specific gravity (U) [Rel density] 1.010 1.002-1.030 [facility] Work Phone: Urobilinogen Auto test strip Ql (U)on 06-29-2022 Urobilinogen Ql (U) Normal mg/dl Normal [facility] Work Phone: CBC W Auto Differential pane l (Bld)on 05-31-2022 Basophils (Bld) [#/Vol] 10*3/uL Normal <0.11 [facility] Comment on above: Order Comment: Speci men Type: BLOOD SPECIMENOrdering Facility: [facility] Address: [address] [address] Performed By: #### 5 7021-8 ####[facility] LABORATORYCLIA [id number] [address] [place] Basophils/100 WBC (Bld) 0.0 % Normal [facility] Comment on above: Order Comment: Speci men Type: BLOOD SPECIMENOrdering Facility: [facility] Address: [address] [address] Performed By: #### 5 7021-8 ####[facility] LABORATORYCLIA [id number] [address] [place] Differential cell count method Nom (Bld) Auto Normal [facility] Comment on above: Order Comment: Speci men Type: BLOOD SPECIMENOrdering Facility: [facility] Address: [address] [address] Performed By: #### 5 7021-8 ####[facility]ORYCLIA [id number] [address] [place] Eosinophils (Bld) [#/Vol] 10*3/uL Normal <0.46 [facility] Comment on above: Order Comment: Speci men Type: BLOOD SPECIMENOrdering Facility: [facility] Address: [address] [place] [address] Performed By: #### 5 7021-8 ####[facility]ORATORYCLIA [id number] [address] Eosinophils/100 WBC (Bld) 0.2 % Normal [facility] Comment on above: Order Comment: Speci men Type: BLOOD SPECIMENOrdering Facility: [facility] Address: [address] [place] [address] Performed By: #### 5 7021-8 ####[facility] LABORATORYCLIA [id number] [address] Erythrocyte distribution width (RBC) [Ratio] 12.5 % Normal 11.5-15.0 [facility] Comment on above: Order Comment: Speci men Type: BLOOD SPECIMENOrdering Facility: [facility] Address: [address] [place] [address] Performed By: #### 5 7021-8 ####[facility]ORATORYCLIA [id number] [address] [place] Hematocrit (Bld) [Volume fraction] 38.8 % Normal 36.0-46.0 [facility] Comment on above: Order Comment: Speci men Type: BLOOD SPECIMENOrdering Facility: [facility] Address: [address] [place] [address] Performed By: #### 5 7021-8 ####[facility]ORATORYCLIA [id number] [address] Hemoglobin (Bld) [Mass/Vol] 13.4 g/dL Normal 11.5-15.5 [facility] Comment on above: Order Comment: Speci men Type: BLOOD SPECIMENOrdering Facility: [facility] Address: [address] [place] [address] Performed By: #### 5 7021-8 ####[facility]ORYCLIA [id number] [address] IMMATURE GRAN % 0.2 % Normal [facility] Comment on above: Order Comment: Speci men Type: BLOOD SPECIMENOrdering Facility: [facility] Address: [address] [place] [address] Performed By: #### 5 7021-8 ####[facility] LABORATORYCLIA [id number] [address] IMMATURE GRAN ABS <0.03 Normal <0.10 [facility] Comment on above: Order Comment: Speci men Type: BLOOD SPECIMENOrdering Facility: [facility] Address: [address] [place] [address] Performed By: #### 5 7021-8 ####[facility] LABORATORYCLIA [id number] [address] Lymphocytes (Bld) [#/Vol] 1.08 10*3/uL Normal 1.00-4.00 [facility] Comment on above: Order Comment: Speci men Type: BLOOD SPECIMENOrdering Facility: [facility] Address: [address] [place] [address] Performed By: #### 5 7021-8 ####[facility] LABORATORYCLIA [id number] [address] Lymphocytes/100 WBC (Bld) 26.3 % Normal [facility] Comment on above: Order Comment: Speci men Type: BLOOD SPECIMENOrdering Facility: [facility] Address: [address] [place] [address] Performed By: #### 5 7021-8 ####[facility]ATORYCLIA [id number] [address] [place] MCH (RBC) [Entitic mass] 30.2 pg Normal 26.0-34.0 [facility] Comment on above: Order Comment: Speci men Type: BLOOD SPECIMENOrdering Facility: [facility] Address: [address] [place] [address] Performed By: #### 5 7021-8 ####[facility] LABORATORYCLIA [id number] [address] STATES OF [facility] MCHC (RBC) [Mass/Vol] 34.5 g/dL Normal 30.5-36.0 [facility] Comment on above: Order Comment: Speci men Type: BLOOD SPECIMENOrdering Facility: [facility] Address: [address] [place] [address] Performed By: #### 5 7021-8 ####[facility]ORATORYCLIA [id number] [address] [place] MCV (RBC) [Entitic vol] 87.6 fL Normal 80.0-100.0 [facility] Comment on above: Order Comment: Speci men Type: BLOOD SPECIMENOrdering Facility: [facility] Address: [address] [place] [address] Performed By: #### 5 7021-8 ####[facility] LABORATORYCLIA [id number] [address] OF [facility] Monocytes (Bld) [#/Vol] 0.34 10*3/uL Normal <0.87 [facility] Comment on above: Order Comment: Speci men Type: BLOOD SPECIMENOrdering Facility: [facility] Address: [address] [place] [address] Performed By: #### 5 7021-8 ####[facility]ORATORYCLIA [id number] [address] Monocytes/100 WBC (Bld) 8.3 % Normal [facility] Comment on above: Order Comment: Speci men Type: BLOOD SPECIMENOrdering Facility: [facility] Address: [address] [place] [address] Performed By: #### 5 7021-8 ####[facility]ORATORYCLIA [id number] [address] [place] Neutrophils (Bld) [#/Vol] 2.66 10*3/uL Normal 1.45-7.50 [facility] Comment on above: Order Comment: Speci men Type: BLOOD SPECIMENOrdering Facility: [facility] Address: [address] [place] [address] Performed By: #### 5 7021-8 ####[facility]ORATORYCLIA [id number] [address] [place] Neutrophils/100 WBC (Bld) 65.0 % Normal [facility] Comment on above: Order Comment: Speci men Type: BLOOD SPECIMENOrdering Facility: [facility] Address: [address] [place] [address] Performed By: #### 5 7021-8 ####[facility]ORATORYCLIA [id number] [address] [place] Nucleated RBC (Bld) [#/Vol] 10*3/uL Normal <0.01 [facility] Comment on above: Order Comment: Speci men Type: BLOOD SPECIMENOrdering Facility: [facility] Address: [address] [place] [address] Performed By: #### 5 7021-8 ####[facility] LABORATORYCLIA [id number] [address] [place] Nucleated RBC/100 WBC (Bld) [Ratio] 0.0 /100 WBC Normal [facility] Comment on above: Order Comment: Speci men Type: BLOOD SPECIMENOrdering Facility: [facility] Address: [address] [place] [address] Performed By: #### 5 7021-8 ####[facility]ORATORYCLIA [id number] [address] [place] Platelet mean volume (Bld) [Entitic vol] 9.7 fL Normal 9.0-12.7 [facility] Comment on above: Order Comment: Speci men Type: BLOOD SPECIMENOrdering Facility: [facility] Address: [address] [address] Performed By: #### 5 7021-8 ####[facility]ORATORYCLIA [id number] [address] OF [facility] Platelets (Bld) [#/Vol] 178 10*3/uL Normal 150-400 [facility] Comment on above: Order Comment: Speci men Type: BLOOD SPECIMENOrdering Facility: [facility] Address: [address] [place] [address] Performed By: #### 5 7021-8 ####[facility]ORATORYCLIA [id number] [address] [place] RBC (Bld) [#/Vol] 4.43 10*6/uL Normal 3.90-5.20 [facility] Comment on above: Order Comment: Speci men Type: BLOOD SPECIMENOrdering Facility: [facility] Address: [address] [place] [address] Performed By: #### 5 7021-8 ####[facility]ORATORYCLIA [id number] [address] OF [facility] WBC (Bld) [#/Vol] 4.10 10*3/uL Normal 3.70-11.00 [facility] Comment on above: Order Comment: Speci men Type: BLOOD SPECIMENOrdering Facility: [facility] Address: [address] [place] [address] Performed By: #### 5 7021-8 ####[facility]ORATORYCLIA [id number] [address] Comprehensive metabolic 2000 panelon 05-31-2022 Albumin [Mass/Vol] 4.5 g/dL Normal 3.9-4.9 [facility] Comment on above: Order Comment: Speci men Type: BLOOD SPECIMENOrdering Facility: [facility] Address: [address] [place] [address] Performed By: #### 3 040-3, 29767-5, 50796-9 ####[facility]ORATORYCLIA [id number] [address] [place] ALP [Catalytic activity/Vol] 60 U/L Normal 34-123 [facility] Comment on above: Order Comment: Speci men Type: BLOOD SPECIMENOrdering Facility: [facility] Address: [address] [place] [address] Performed By: #### 3 040-3, 87339-8, ####[facility]ORATORYCLIA [id number] [address] STATES OF [facility] ALT With P-5'-P [Catalytic activity/Vol] 55 U/L High 7-38 [facility] Comment on above: Order Comment: Speci men Type: BLOOD SPECIMENOrdering Facility: [facility] Address: [address] [place] [address] Performed By: #### 3 040-3, 01902-6, ####[facility]ATORYCLIA [id number] [address] Anion gap [Moles/Vol] 12 mmol/L Normal 9-18 [facility] Comment on above: Order Comment: Speci men Type: BLOOD SPECIMENOrdering Facility: [facility] Address: [address] [place] [address] Performed By: #### 3 040-3, 37652-0, ####[facility]ORATORYCLIA [id number] [address] STATES OF [facility] AST With P-5'-P [Catalytic activity/Vol] 57 U/L High 13-35 [facility] Comment on above: Order Comment: Speci men Type: BLOOD SPECIMENOrdering Facility: [facility] Address: [address] [place] [address] Performed By: #### 3 040-3, 03530-3, ####[facility]ORATORYCLIA [id number] [place] [address] [place] Bilirubin [Mass/Vol] 0.5 mg/dL Normal 0.2-1.3 [facility] Comment on above: Order Comment: Speci men Type: BLOOD SPECIMENOrdering Facility: [facility] Address: [address] [place] [address] Performed By: #### 3 040-3, , ####[facility] LABORATORYCLIA [id number] [place] [address] [place] Calcium [Mass/Vol] 8.9 mg/dL Normal 8.5-10.2 [facility] Comment on above: Order Comment: Speci men Type: BLOOD SPECIMENOrdering Facility: [facility] Address: [address] [place] [address] Performed By: #### 3 040-3, , ####[facility] LABORATORYCLIA [id number] [place] [address] [place] Chloride [Moles/Vol] 102 mmol/L Normal 97-105 [facility] Comment on above: Order Comment: Speci men Type: BLOOD SPECIMENOrdering Facility: [facility] Address: [address] [place] [address] Performed By: #### 3 040-3, , ####[facility]ORATORYCLIA [id number] [place] [address] [place] CO2 [Moles/Vol] 25 mmol/L Normal 22-30 [facility] Comment on above: Order Comment: Speci men Type: BLOOD SPECIMENOrdering Facility: [facility] Address: [address] [place] [address] Performed By: #### 3 040-3, , ####[facility]ORATORYCLIA [id number] [place] [address] [place] Creatinine [Mass/Vol] 0.74 mg/dL Normal 0.58-0.96 [facility] Comment on above: Order Comment: Speci men Type: BLOOD SPECIMENOrdering Facility: [facility] Address: [address] [place] [address] Performed By: #### 3 040-3, 89340-4, ####[facility]LECLIA [id number] [address] ESTIMATED GLOMERULAR FILTRATION RATE 117 mL/min/1.73m??? Normal >=60 [facility] Comment on above: Order Comment: Eloise lopez Type: BLOOD SPECIMENOrdering Facility: [facility] Address: [address] [place] [address] Result Comment: Tierra mated Glomerular Filtration Rate [...] actual GFR. Performed By: #### 3 040-3, 82285-0, ####[facility] [id number] [address] Glucose [Mass/Vol] 91 mg/dL Normal 74-99 [facility] Comment on above: Order Comment: Eloise lopez Type: BLOOD SPECIMENOrdering Facility: [facility] Address: [address] [place] [address] Result Comment: The [place] [employer] (ADA) provides guidance for cutoff [...] Standards of Medical Care in Diabetes 2016, [place] [employer]. Diabetes Care. 2016.39(Suppl 1). Performed By: #### 3 040-3, 40248-6, ####[facility]ORATORYCLIA [id number] [address] [place] Potassium [Moles/Vol] 3.6 mmol/L Low 3.7-5.1 [facility] Comment on above: Order Comment: Speci men Type: BLOOD SPECIMENOrdering Facility: [facility] Address: [address] [place] [address] Performed By: #### 3 040-3, 43683-0, ####[facility]ATORYCLIA [id number] [address] [place] Protein [Mass/Vol] 6.7 g/dL Normal 6.3-8.0 [facility] Comment on above: Order Comment: Speci men Type: BLOOD SPECIMENOrdering Facility: [facility] Address: [address] [place] [address] Performed By: #### 3 040-3, 97484-8, ####[facility]ORATORYCLIA [id number] [address] STATES OF [facility] Sodium [Moles/Vol] 139 mmol/L Normal 136-144 [facility] Comment on above: Order Comment: Speci men Type: BLOOD SPECIMENOrdering Facility: [facility] Address: [address] [place] [address] Performed By: #### 3 040-3, 13351-9, ####[facility]ATORYCLIA [id number] [address] [place] Urea nitrogen [Mass/Vol] 7 mg/dL Normal 7-21 [facility] Comment on above: Order Comment: Speci men Type: BLOOD SPECIMENOrdering Facility: [facility] Address: [address] [place] [address] Performed By: #### 3 040-3, 74309-2, ####[facility] LABORATORYCLIA [id number] [place] [address] [place] ED NOTEon 05-31-2022 ED NOTE HNO ID: [id number] Author: Agueda Meng RN Service: Emergency Medicine Author Type: Registered Nurse Type: ED Notes Filed: 05/31/2022 2:42 PM Note Text: Pt alert and oriented x 4, speaking in full sentences with unlabored breathing. Pt verbalizes understanding of discharge paperwork. Pt ambulated from department without difficulty. [facility] ED NOTE HNO ID: [id number] Author: Agueda Meng RN Service: Emergency Medicine [...] patient. Is at bedside at this time. [facility] ED NOTE HNO ID: [id number] Author: Agueda Meng RN Service: Emergency Medicine Author Type: Registered Nurse Type: ED Notes Filed: 05/31/2022 12:14 PM Note Text: POC BG 79 [facility] ED NOTE HNO ID: [id number] Author: Agueda Meng RN Service: Emergency Medicine Author Type: Registered Nurse Type: ED Notes Filed: 05/31/2022 11:36 AM Note Text: Pt c/o weakness along with generalized illness symptoms. 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 [facility] ED NOTE HNO ID: [id number] Author: Danuta Staley RN Service: ? Author Type: Registered Nurse Type: ED Notes Filed: 05/31/2022 11:04 AM Note Text: Bed: 46-ED Expected date: Expected time: Means of arrival: Comments: triage [facility] ED PROV NOTEon 05-31-2022 ED PROV NOTE HNO ID: [id number] Author: Hiwot Hudson MD Service: Emergency Medicine [...] vaccinated against COVID. She works at a [employer]. Possible sick contacts no recent travel. Vitals [...] PM Hiwot Hudson MD 05/31/22 1548 [facility] ED PROV NOTE HNO ID: [id number] Author: Hiwot Hudson MD Service: Emergency Medicine [...] Diagnosis Date Cognitive disorder IEP per the [facility] Kidney [...] ED Course (more content not included)... [facility] EKGon 05-31-2022 Electrocardiogram Ventricular Rate : 7 1 BPM Atrial Rate : 71 BPM P-R Interval : 118 ms QRS Duration : 84 ms Q-T Interval : 448 ms QTC Calculation(Bazett) : 486 ms Calculated P Billings : 23 degrees Calculated R Billings : 58 degrees Calculated T Billings : 27 degrees NORMAL SINUS RHYTHM NONSPECIFIC T WAVE ABNORMALITY PROLONGED QT ABNORMAL ECG NO PREVIOUS ECGS AVAILABLE Confirmed by KAUSHIK GUADALUPE MD ([id number]) on 06/04/2022 3:38:07 AM NAME : LUZ OLIVEIRA PID : [id number] : 2000 Gender : Female Race : ORD : Procedure Date : May 31 2022 13:06:20 Edit Date : Jun 04 2022 03:38:08 Diagnosis: NORMAL SINUS RHYTHM NONSPECIFIC T WAVE ABNORMALITY PROLONGED QT ABNORMAL ECG NO PREVIOUS ECGS AVAILABLE Confirmed by KAUSHIK GUADALUPE MD ([id number]) on 06/04/2022 3:38:07 AM Test Reason : Location : 4 : [facility] Overread By : KAUSHIK GUADALUPE MD Edited By : KAUSHIK GUADALUPE MD Referred By : , Acquired by : KIRTI FRIED [facility] HCG Preg Ur Qlon 05-31-2022 HCG ( test) Ql (U) Negative Normal Negative [facility] Comment on above: Order Comment: Speci men Type: URINE SPECIMENOrdering Facility: [facility] Address: [address] [place], [place] [address] Result Comment: This test is intended to aid in the early detection of . Very dilute urine samples, as indicated by a low specific gravity, may not contain field representative/health education levels of hCG. This test detects intact [...] 2 106-3 ####[facility] LABORATORYCLIA [id number] [place] [address] [place] Lipase SerPl-cCncon 08-21-20 22 Lipase [Catalytic activity/Vol] 17 U/L Normal 16-61 [facility] Comment on above: Order Comment: Speci men Type: BLOOD SPECIMENOrdering Facility: [facility] Address: [address] [place] [address] Performed By: #### 3 040-3, 07341-7, 37234-5 ####[facility] LABORATORYCLIA [id number] [address] OF [facility] Magnesium SerPl-mCncon 05-31 Magnesium [Mass/Vol] 1.8 mg/dL Normal 1.7-2.3 [facility] Comment on above: Order Comment: Speci men Type: BLOOD SPECIMENOrdering Facility: [facility] Address: [address] [place] [address] Performed By: #### 3 040-3, 99641-5, 45203-7 ####[facility] LABORATORYCLIA [id number] [address] STATES OF [facility] ROUTINE FLU A/B + RSVon 05-12 FLUAV RNA CHICHO+probe Ql (Unsp spec) Negative Normal Negative for Influenza A by RT-PCR [facility] Comment on above: Order Comment: Speci men Type: SWAB OF INTERNAL NOSEOrdering Facility: [facility] Address: [address] [place] [address] Performed By: #### R TFRSV, 29483-7 ####[facility] LABCLIA [id number] [address] OF [place] FLUBV RNA CHICHO+probe Ql (Unsp spec) Negative Normal Negative for Influenza B by RT-PCR [facility] Comment on above: Order Comment: Speci men Type: SWAB OF INTERNAL NOSEOrdering Facility: [facility] Address: [address] [place] [address] Performed By: #### R TFRSV, 69508-4 ####[facility] LABCLIA [id number] [address] [place] RSV A RNA CHICHO+probe Ql (Unsp spec) Negative Normal Negative for Respiratory Syncytial Virus (RSV) by PCR [facility] Comment on above: Order Comment: Speci men Type: SWAB OF INTERNAL NOSEOrdering Facility: [facility] Address: [address] [place] [address] Performed By: #### R TFRSV, 87187-0 ####[facility] LABCLIA [id number] [address] OF [place] SARS-CoV-2 RNA Resp Ql CHICHO+p robeon 05-31-2022 SARS-CoV-2 (COVID-19) RNA CHICHO+probe Ql (Resp) SARS-CoV-2 (Agent of COVID-19) Detected by RT-PCR or equivalent method. Abnormal Not Detected [facility] Comment on above: Order Comment: Speci men Type: SWAB OF INTERNAL NOSEOrdering Facility: [facility] Address: [address] [place] [address] Result Comment: This test was developed and its performance characteristics determined by [facility]'s Alejandro Jeffry [facility] Pathology and Laboratory Medicine [place]. This test has been authorized by FDA under an Emergency Use Authorization (EUA). This test has been validated in accordance with the FDA's Guidance Document Policy for Diagnostics Testing in Laboratories Certified to Perform High Complexity Testing under CLIA prior to Emergency use Authorization for Coronavirus Disease 2019 during the Public Health Emergency issued on December 09, 2019. Test performed by [facility] [place], [address] [place] [address]. Performed By: #### R TFRSV, 01442-3 ####[facility] LABCLIA [id number] [address] OF [place] Urinalysis complete panel (U )on 05-31-2022 Bilirubin Ql (U) Negative Normal Negative [facility] Comment on above: Order Comment: Speci men Type: URINE SPECIMENOrdering Facility: [facility] Address: [address] [place] [address] Performed By: #### 2 4356-8 ####[facility] LABORATORYCLIA [id number] [address] Clarity (Unsp spec) Clear Normal Clear [facility] Comment on above: Order Comment: Speci men Type: URINE SPECIMENOrdering Facility: [facility] Address: [address] [place] [address] Performed By: #### 2 4356-8 ####[facility] LABORATORYCLIA [id number] [address] Color (U) Colorless Normal yellow [facility] Comment on above: Order Comment: Speci men Type: URINE SPECIMENOrdering Facility: [facility] Address: [address] [place] [address] Performed By: #### 2 4356-8 ####[facility] LABORATORYCLIA [id number] [address] Glucose Test strip (U) [Mass/Vol] Negative Normal Negative [facility] Comment on above: Order Comment: Speci men Type: URINE SPECIMENOrdering Facility: [facility] Address: [address] [place] [address] Performed By: #### 2 4356-8 ####[facility] LABORATORYCLIA [id number] [address] Hemoglobin Ql (U) Negative Normal Negative [facility] Comment on above: Order Comment: Speci men Type: URINE SPECIMENOrdering Facility: [facility] Address: [address] [address] Performed By: #### 2 4356-8 ####[facility] LABORATORYCLIA [id number] [address] Ketones Ql (U) 2+ Abnormal Negative [facility] Comment on above: Order Comment: Speci men Type: URINE SPECIMENOrdering Facility: [facility] Address: [address] [address] Performed By: #### 2 4356-8 ####[facility]ORATORYCLIA [id number] [address] Leukocyte esterase Test strip Ql (U) Negative Normal Negative [facility] Comment on above: Order Comment: Speci men Type: URINE SPECIMENOrdering Facility: [facility] Address: [address] [place] [address] Performed By: #### 2 4356-8 ####[facility] LABORATORYCLIA [id number] [address] STATES [place] Nitrite Ql (U) Negative Normal Negative [facility] Comment on above: Order Comment: Speci men Type: URINE SPECIMENOrdering Facility: [facility] Address: [address] [place] [address] Performed By: #### 2 4356-8 ####[facility] LABORATORYCLIA [id number] [address] [place] pH (U) 7.5 [pH] Normal 5.0-8.0 [facility] Comment on above: Order Comment: Speci men Type: URINE SPECIMENOrdering Facility: [facility] Address: [address] [place] [address] Performed By: #### 2 4356-8 ####[facility] LABORATORYCLIA [id number] [address] Protein (U) [Mass/Vol] Negative Normal Negative [facility] Comment on above: Order Comment: Speci men Type: URINE SPECIMENOrdering Facility: [facility] Address: [address] [place] [address] Performed By: #### 2 4356-8 ####[facility] LABORATORYCLIA [id number] [address] [place] RBC LM.HPF (Urine sed) [#/Area] 0-3 /HPF Normal 0-3 /HPF [facility] Comment on above: Order Comment: Speci men Type: URINE SPECIMENOrdering Facility: [facility] Address: [address] [place] [address] Performed By: #### 2 4356-8 ####[facility] LABORATORYCLIA [id number] [address] Urobilinogen Ql (U) Normal Normal Negative [facility] Comment on above: Order Comment: Speci men Type: URINE SPECIMENOrdering Facility: [facility] Address: [address] [place] [address] Performed By: #### 2 4356-8 ####[facility] LABORATORYCLIA [id number] [address] WBC LM.HPF (Urine sed) [#/Area] 0-5 /HPF Normal 0-5 /HPF [facility] Comment on above: Order Comment: Speci men Type: URINE SPECIMENOrdering Facility: [facility] Address: [address] [place] [address] Performed By: #### 2 4356-8 ####[facility]LECLIA [id number] [address] Urinalysis complete pnl Uron 05-31-2022 Specific gravity (U) [Rel density] 1.005 Normal 1.005-1.030 [facility] Comment on above: Order Comment: Speci men Type: URINE SPECIMENOrdering Facility: [facility] Address: [address] [place] [address] Performed By: #### 2 4356-8 ####[facility]LECLIA [id number] [address] Result Comment: If s pecific gravity is <1.005 then results may be falsely negative. Serum HCG is recommended. Performed By: #### 2 106-3 ####[facility] LABORATORYCLIA [id number] [address] ALLIED HEALTHon 12-31-2021 ALLIED HEALTH HNO ID: [id number] Author: RT Tierney(R) Service: Radiology Author Type: Patient Intake Coordinator Type: Allied Health Filed: 12/31/2021 7:25 PM [...] PERIPHERAL IV DATA: Inpatient - refer to [facility] documentation RADIOLOGY DEPARTMENT: CT; Exam(s) Completed: Abdomen/Pelvis SIGNATURE: RT Tierney(R) PATIENT NAME: Luz Oliveira DATE: December 31, 2021 TIME: 7:20 PM [facility] Bacteria Ur Culton 2 Bacteria identified Cx Nom (U) CULTURE, URINE: Three or more urogenital den organisms. No predominating uropathogen. Recollect if clinically indicated. [facility] Comment on above: Performed By: #### 6 30-4 #### [facility] CLIA [id number] [address] [place] [address] [place] CBC W Auto Differential pane l (Bld)on 12-31-2021 Basophils (Bld) [#/Vol] 10*3/uL Normal <0.11 [facility] Comment on above: Order Comment: Speci men Type: BLOOD SPECIMENOrdering Facility: [facility] Address: [address] [place] [address] Performed By: #### 5 7021-8 ####[facility] LABCLIA [id number] [place] [facility] [place] [place] [address] [place] [facility] Basophils/100 WBC (Bld) 0.1 % Normal [facility] Comment on above: Order Comment: Speci men Type: BLOOD SPECIMENOrdering Facility: [facility] Address: [address] [place] [address] Performed By: #### 5 7021-8 ####[facility] LABCLIA [id number] [facility], [facility] Differential cell count method Nom (Bld) Auto Normal [facility] Comment on above: Order Comment: Speci men Type: BLOOD SPECIMENOrdering Facility: [facility] Address: [address] [place] [address] Performed By: #### 5 7021-8 ####[facility] LABCLIA [id number] [facility] [place] Eosinophils (Bld) [#/Vol] 0.03 10*3/uL Normal <0.46 [facility] Comment on above: Order Comment: Speci men Type: BLOOD SPECIMENOrdering Facility: [facility] Address: [address] [place] [address] Performed By: #### 5 7021-8 ####[facility] LABCLIA [id number] [facility], [address] Eosinophils/100 WBC (Bld) 0.3 % Normal [facility] Comment on above: Order Comment: Speci men Type: BLOOD SPECIMENOrdering Facility: [facility] Address: [address] [place] [address] Performed By: #### 5 7021-8 ####[facility] LABCLIA [id number] [place] [address] [place] Erythrocyte distribution width (RBC) [Ratio] 12.0 % Normal 11.5-15.0 [facility] Comment on above: Order Comment: Speci men Type: BLOOD SPECIMENOrdering Facility: [facility] Address: [address] [place] [address] Performed By: #### 5 7021-8 ####[facility] LABCLIA [id number] [place] [address] [place] Hematocrit (Bld) [Volume fraction] 40.3 % Normal 36.0-46.0 [facility] Comment on above: Order Comment: Speci men Type: BLOOD SPECIMENOrdering Facility: [facility] Address: [address] [place] [address] Performed By: #### 5 7021-8 ####[facility] LABCLIA [id number] [place] [facility] [place] [address] [place] Hemoglobin (Bld) [Mass/Vol] 13.8 g/dL Normal 11.5-15.5 [facility] Comment on above: Order Comment: Speci men Type: BLOOD SPECIMENOrdering Facility: [facility] Address: [address] [place] [address] Performed By: #### 5 7021-8 ####[facility] LABCLIA [id number] [facility] [place] [address] [place] Lymphocytes (Bld) [#/Vol] 1.98 10*3/uL Normal 1.00-4.00 [facility] Comment on above: Order Comment: Speci men Type: BLOOD SPECIMENOrdering Facility: [facility] Address: [address] [place] [address] Performed By: #### 5 7021-8 ####[facility] LABCLIA [id number] [place] [facility] [place] [address] [facility] OF [place] Lymphocytes/100 WBC (Bld) 20.3 % Normal [facility] Comment on above: Order Comment: Speci men Type: BLOOD SPECIMENOrdering Facility: [facility] Address: [address] [place] [address] Performed By: #### 5 7021-8 ####[facility] LABCLIA [id number] [place] [address] [place] MCH (RBC) [Entitic mass] 30.7 pg Normal 26.0-34.0 [facility] Comment on above: Order Comment: Speci men Type: BLOOD SPECIMENOrdering Facility: [facility] Address: [address] [place] [address] Performed By: #### 5 7021-8 ####[facility] LABCLIA [id number] [address] [place] MCHC (RBC) [Mass/Vol] 34.2 g/dL Normal 30.5-36.0 [facility] Comment on above: Order Comment: Speci men Type: BLOOD SPECIMENOrdering Facility: [facility] Address: [address] [place] [address] Performed By: #### 5 7021-8 ####[facility] LABCLIA [id number] [address] [place] MCV (RBC) [Entitic vol] 89.6 fL Normal 80.0-100.0 [facility] Comment on above: Order Comment: Speci men Type: BLOOD SPECIMENOrdering Facility: [facility] Address: [address] [place] [address] Performed By: #### 5 7021-8 ####[facility] LABCLIA [id number] [place] [id number] [facility] Monocytes (Bld) [#/Vol] 0.70 10*3/uL Normal <0.87 [facility] Comment on above: Order Comment: Speci men Type: BLOOD SPECIMENOrdering Facility: [facility] Address: [address] [place] [address] Performed By: #### 5 7021-8 ####[facility] LABCLIA [id number] [place] [address] [place] Monocytes/100 WBC (Bld) 7.2 % Normal [facility] Comment on above: Order Comment: Speci men Type: BLOOD SPECIMENOrdering Facility: [facility] Address: [address] [place] [address] Performed By: #### 5 7021-8 ####[facility] LABCLIA [id number] [place] [address] [place] Neutrophils (Bld) [#/Vol] 7.02 10*3/uL Normal 1.45-7.50 [facility] Comment on above: Order Comment: Speci men Type: BLOOD SPECIMENOrdering Facility: [facility] Address: [address] [place] [address] Performed By: #### 5 7021-8 ####[facility] LABCLIA [id number] [place] [address] [place] Neutrophils/100 WBC (Bld) 72.1 % Normal [facility] Comment on above: Order Comment: Speci men Type: BLOOD SPECIMENOrdering Facility: [facility] Address: [address] [place] [address] Performed By: #### 5 7021-8 ####[facility] LABCLIA [id number] [place] [address] [place] Platelet mean volume (Bld) [Entitic vol] 9.7 fL Normal 9.0-12.7 [facility] Comment on above: Order Comment: Speci men Type: BLOOD SPECIMENOrdering Facility: [facility] Address: [address] [place] [address] Performed By: #### 5 7021-8 ####[facility] LABCLIA [id number] [place] [address] [place] Platelets (Bld) [#/Vol] 251 10*3/uL Normal 150-400 [facility] Comment on above: Order Comment: Speci men Type: BLOOD SPECIMENOrdering Facility: [facility] Address: [address] [place] [address] Performed By: #### 5 7021-8 ####[facility] LABCLIA [id number] [place] [address] [facility] RBC (Bld) [#/Vol] 4.50 10*6/uL Normal 3.90-5.20 [facility] Comment on above: Order Comment: Speci men Type: BLOOD SPECIMENOrdering Facility: [facility] Address: [address] [place] [address] Performed By: #### 5 7021-8 ####[facility] LABCLIA [id number] [place] [id number] [facility] WBC (Bld) [#/Vol] 9.74 10*3/uL Normal 3.70-11.00 [facility] Comment on above: Order Comment: Speci men Type: BLOOD SPECIMENOrdering Facility: [facility] Address: [address] [place] [address] Performed By: #### 5 7021-8 ####[facility] LABCLIA [id number] [place] [address] [facility] [address] ABD/PEL W IVCONon 12-31- 022 CT ABD/PEL W IVCON * * *Final Report* * * DATE OF EXAM: Dec 31 2021 7:25PM [facility] 0530 - CT ABD/PEL W [...] Tissues: No significant finding. Lower thorax: Unremarkable. Ciaio Lumite Injector (topogram) images: No additional findings. IMPRESSION: No acute abnormality Atrophic left kidney with cortical scarring and suspected small nonobstructing calculi. 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 Address: [address] [place] [phone] Performed By: #### 2 4323-8, 79101-3 ####[facility] LABCLIA [id number] [place] [address] [place] ALP [Catalytic activity/Vol] 74 U/L Normal 46-116 [facility] Comment on above: Order Comment: Speci men Type: BLOOD SPECIMENOrdering Facility: [facility] Address: [address] [place], [place] [address] Performed By: #### 2 4328, ####[facility] LABCLIA [id number] [facility] [place] [address] [place] ALT With P-5'-P [Catalytic activity/Vol] 55 U/L Normal 12-78 [facility] Comment on above: Order Comment: Speci men Type: BLOOD SPECIMENOrdering Facility: [facility] Address: [address] [place] [address] Performed By: #### 2 8, ####[facility] LABCLIA [id number] [place] [address] [place] Anion gap [Moles/Vol] 2 mmol/L Low 8-16 [facility] Comment on above: Order Comment: Speci men Type: BLOOD SPECIMENOrdering Facility: [facility] Address: [address] [place] [address] Performed By: #### 2 8, ####[facility] LABCLIA [id number] [place] [address] [place] AST With P-5'-P [Catalytic activity/Vol] 29 U/L Normal 15-46 [facility] Comment on above: Order Comment: Speci men Type: BLOOD SPECIMENOrdering Facility: [facility] Address: [address] [place], [place] [address] Result Comment: Spec imen slightly hemolyzed. Performed By: #### 2 432-8, ####[facility] LABCLIA [id number] [place] [address] [place] Bilirubin [Mass/Vol] 0.2 mg/dL Normal 0.2-1.0 [facility] Comment on above: Order Comment: Speci men Type: BLOOD SPECIMENOrdering Facility: [facility] Address: [address] [place] [address] Performed By: #### 2 4323-8, ####[facility] LABCLIA [id number] [place] [address] [place] Calcium [Mass/Vol] 9.1 mg/dL Normal 8.5-10.1 [facility] Comment on above: Order Comment: Speci men Type: BLOOD SPECIMENOrdering Facility: [facility] Address: [address] [place] [address] Performed By: #### 2 4328, ####[facility] LABCLIA [id number] [place] [address] [place] Chloride [Moles/Vol] 100 mmol/L Normal 98-107 [facility] Comment on above: Order Comment: Speci men Type: BLOOD SPECIMENOrdering Facility: [facility] Address: [address] [place] [address] Performed By: #### 2 43212-16, ####[facility] [id number] [place] [address] [place] CO2 [Moles/Vol] 33 mmol/L High 21-32 [facility] Comment on above: Order Comment: Speci men Type: BLOOD SPECIMENOrdering Facility: [facility] Address: [address] [place] [address] Performed By: #### 2 [id number], ####[facility] [id number] [place] [address] [place] Creatinine [Mass/Vol] 0.78 mg/dL Normal 0.51-0.95 [facility] Comment on above: Order Comment: Speci men Type: BLOOD SPECIMENOrdering Facility: [facility] [facility] Address: [facility] [place] [address] Performed By: #### 2 4323-8, ####[facility] LABCLIA [id number] [place] [address] [place] ESTIMATED GLOMERULAR FILTRATION RATE 110 mL/min/1.73m??? Normal >=60 [facility] Comment on above: Order Comment: Eloise lopez Type: BLOOD SPECIMENOrdering Facility: [facility] Address: [address] [place], [place] [address] Result Comment: Tierra mated Glomerular Filtration Rate [...] actual GFR. Performed By: #### 2 4323-8, 50649-0 ####[facility] LABCLIA [id number] [place] [address] [place] Glucose [Mass/Vol] 94 mg/dL Normal 70-99 [facility] Comment on above: Order Comment: Eloise lopez Type: BLOOD SPECIMENOrdering Facility: [facility] Address: [address] [place] [address] Result Comment: The [place] Diabetes Association (ADA) provides guidance for cutoff [...] Standards of Medical Care in Diabetes 2016, [place] [employer]. Diabetes Care. 2016.39(Suppl 1). Performed By: #### 2 4323-8, 91589-5 ####[facility] LABCLIA [id number] [place] [address] [place] Potassium [Moles/Vol] 3.6 mmol/L Normal 3.5-5.1 [facility] Comment on above: Order Comment: Speci men Type: BLOOD SPECIMENOrdering Facility: [facility] Address: [address] [place] [address] Result Comment: Spec imen slightly hemolyzed. Performed By: #### 2 432-8, ####[facility] LABCLIA [id number] [facility] [place] [place] [address] [place] Protein [Mass/Vol] 7.7 g/dL Normal 6.4-8.2 [facility] Comment on above: Order Comment: Speci men Type: BLOOD SPECIMENOrdering Facility: [facility] Address: [address] [place] [address] Performed By: #### 2 432-8, ####[facility] LABCLIA [id number] [place] [address] [place] Sodium [Moles/Vol] 135 mmol/L Low 136-145 [facility] Comment on above: Order Comment: Speci men Type: BLOOD SPECIMENOrdering Facility: [facility] Address: [address] [place] [address] Performed By: #### 2 8, ####[facility] LABCLIA [id number] [place] [address] [place] Urea nitrogen [Mass/Vol] 10 mg/dL Normal 7-18 [facility] Comment on above: Order Comment: Speci men Type: BLOOD SPECIMENOrdering Facility: [facility] Address: [address] [place] [address] Performed By: #### 2 4328, ####[facility] LABCLIA [id number] [place] [address] [facility] [place] ED NOTEon 12-31-2021 ED NOTE HNO ID: [id number] Author: Amy Pena RN Service: Emergency Medicine Author Type: Registered Nurse Type: ED Notes Filed: 12/31/2021 7:03 PM Note Text: Patient resting in room. Patient updated on the plan of care. Bed in low locked position. Call light in reach. Monitoring maintained. Safety and comfort care maintained. [facility] ED NOTE HNO ID: [id number] Author: Amy Pena RN Service: Emergency Medicine Author Type: Registered Nurse Type: ED Notes Filed: 12/31/2021 6:34 PM Note Text: Patient resting in room. Patient updated on the plan of care. Bed in low locked position. Call light in reach. Monitoring maintained. Safety and comfort care maintained. [facility] ED NOTE HNO ID: [id number] Author: Amy Pena RN Service: Emergency Medicine Author Type: Registered Nurse Type: ED Notes Filed: 12/31/2021 5:20 PM Note Text: Patient resting in room. Patient updated on the plan of care. Bed in low locked position. Call light in reach. Monitoring maintained. Safety and comfort care maintained. [facility] ED NOTE HNO ID: [id number] Author: Amy Pena RN Service: Emergency Medicine Author Type: Registered Nurse Type: ED Notes Filed: 12/31/2021 4:55 PM Note Text: Patient updated on the plan of care. Patient medicated per order. Allergies reviewed. Patient verbalized understanding. 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 Emesis x 1 today. Normal BM today. Pt denies dysuria or hematuria. Hx of kidney stone and UTI Normal [facility] ED PROV NOTEon 12-31-2021 ED PROV NOTE HNO ID: [id number] Author: Mary Pereira DO Service: Emergency Medicine [...] edema. Skin (more content not included)... Normal [facility] ED PROV NOTE HNO ID: [id number] Author: Jayde Yeager MD Service: Emergency Medicine [...] 4:28 PM Jayde Yeager MD 12/31/212020 Normal [facility] HCG Preg Ur Qlon 12-31-2021 HCG ( test) Ql (U) Negative Normal Negative [facility] Comment on above: Order Comment: Speci men Type: URINE SPECIMENOrdering Facility: [facility] Address: [address] [place] [address] Result Comment: This test is intended to aid in the early detection of . Very dilute urine samples, as indicated by a low specific gravity, may not contain field representative/health education levels of hCG. This test detects intact [...] for . Performed By: #### 2 106-3 ####[facility] LABCLIA [id number] [place] [address] [place] Magnesium SerPl-mCncon 12-31 Magnesium [Mass/Vol] 1.9 mg/dL Normal 1.6-2.3 [facility] Comment on above: Order Comment: Speci men Type: BLOOD SPECIMENOrdering Facility: [facility] Address: [address] [place] [address] Performed By: #### 2 4323-8, 47135-3 ####[facility] LABIA [id number] [place] [address] [place] US DOPPLER COMPLETEon 2021 [...] to body habitus. 4. No free fluid. Physical Fitness Teacher: CAROLA Transcribe Date/Time: Dec 31 2021 6:24P Dictated by : KAITY SHAY MD This examination was interpreted and the report reviewed and electronically signed by: KAITY SHAY MD on Dec 31 2021 6:28PM EST [id number] Normal [facility] FEMALE PELVIS TRANSABD LT Don 12-31-2021 FEMALE PELVIS TRANSABD LTD * * *Final Report* * * DATE OF EXAM: Dec 31 2021 6:18PM AWU 1059 - FEMALE PELVIS TRANSABD LTD / PROCEDURE REASON: [...] to body habitus. 4. No free fluid. Physical Fitness Teacher: [facility] Transcribe Date/Time: Dec 31 2021 6:24P Dictated by : KAITY SHAY MD This examination was interpreted and the report reviewed and electronically signed by: KAITY SHAY MD on Dec 31 2021 6:28PM EST [id number] Normal [facility] US FEMALE PELVIS TRANSVAGon 12-31-2021 US [...] to body habitus. 4. No free fluid. Physical Fitness Teacher: [employer] Transcribe Date/Time: Dec 31 2021 6:24P Dictated by : KAITY SHAY MD This examination was interpreted and the report reviewed and electronically signed by: KAITY SHAY MD on Dec 31 2021 6:28PM EST [id number] Normal [facility] Urinalysis complete panel (U )on 12-31-2021 Bacteria LM.HPF (Urine sed) [#/Area] Many Abnormal None Seen [facility] Comment on above: Order Comment: Speci men Type: URINE SPECIMENOrdering Facility: [facility] Address: [address] [place] [address] Performed By: #### 2 4356-8 ####[facility] LABCLIA [id number] [facility] [place] [address] [facility] [place] Bilirubin Ql (U) Negative Normal Negative [facility] Comment on above: Order Comment: Speci men Type: URINE SPECIMENOrdering Facility: [facility] Address: [address] [place] [address] Performed By: #### 2 4356-8 ####[facility] LABCLIA [id number] [place] [address] [facility] Clarity (Unsp spec) Clear Normal Clear [facility] Comment on above: Order Comment: Speci men Type: URINE SPECIMENOrdering Facility: [facility] Address: [address] [place] [address] Performed By: #### 2 4356-8 ####[facility] LABCLIA [id number] [place] [address] [facility] Color (U) Yellow Normal Yellow [facility] Comment on above: Order Comment: Speci men Type: URINE SPECIMENOrdering Facility: [facility] Address: [address] [place] [address] Performed By: #### 2 4356-8 ####[facility] LABCLIA [id number] [place] [address] [facility] Epithelial cells LM.HPF (Urine sed) [#/Area] Many Normal [facility] Comment on above: Order Comment: Speci men Type: URINE SPECIMENOrdering Facility: [facility] Address: [address] [place] [address] Performed By: #### 2 4356-8 ####[facility] LABCLIA [id number] [place] [address] [facility] Glucose Test strip (U) [Mass/Vol] Negative Normal Negative [facility] Comment on above: Order Comment: Speci men Type: URINE SPECIMENOrdering Facility: [facility] Address: [address] [place] [address] Performed By: #### 2 4356-8 ####[facility] LABCLIA [id number] [facility] [place] [address] [facility] Hemoglobin Ql (U) 2+ Abnormal Negative [facility] Comment on above: Order Comment: Speci men Type: URINE SPECIMENOrdering Facility: [facility] Address: [address] [place] [address] Performed By: #### 2 4356-8 ####[facility] LABCLIA [id number] [facility] [place] [address] [place] Ketones Ql (U) Negative Normal Negative [facility] Comment on above: Order Comment: Speci men Type: URINE SPECIMENOrdering Facility: [facility] Address: [address] [place] [address] Performed By: #### 2 4356-8 ####[facility] LABCLIA [id number] [place] [address] [facility] Leukocyte esterase Test strip Ql (U) Trace Abnormal Negative [facility] Comment on above: Order Comment: Speci men Type: URINE SPECIMENOrdering Facility: [facility] Address: [address] [place] [address] Performed By: #### 2 4356-8 ####[facility] LABCLIA [id number] [place] [address] [place] Nitrite Ql (U) Negative Normal Negative [facility] Comment on above: Order Comment: Speci men Type: URINE SPECIMENOrdering Facility: [facility] Address: [address] [place] [address] Performed By: #### 2 4356-8 ####[facility] LABCLIA [id number] [place] [address] [facility] pH (U) 6.0 [pH] Normal 5.0-8.0 [facility] Comment on above: Order Comment: Speci men Type: URINE SPECIMENOrdering Facility: [facility] Address: [address] [place] [address] Performed By: #### 2 4356-8 ####[facility] LABCLIA [id number] [place] [address] [place] [facility] Protein (U) [Mass/Vol] Normal [facility] Comment on above: Order Comment: Speci men Type: URINE SPECIMENOrdering Facility: [facility] Address: [address] [place] [address] Result Comment: Visi ble blood causes falsely elevated results for analyte Protein. Due to this limitation, Protein will not be reported for patients whose urine contains visible blood. Performed By: #### 2 4356-8 ####[facility] LABCLIA [id number] [place] [address] [place] RBC LM.HPF (Urine sed) [#/Area] 11-25 /HPF Abnormal 0-3 /HPF [facility] Comment on above: Order Comment: Speci men Type: URINE SPECIMENOrdering Facility: [facility] Address: [address] [place] [address] Performed By: #### 2 4356-8 ####[facility] LABCLIA [id number] [place] [id number] [place] Specific gravity (U) [Rel density] >=1.030 High 1.005-1.030 [facility] Comment on above: Order Comment: Speci men Type: URINE SPECIMENOrdering Facility: [facility] Address: [address] [place] [address] Performed By: #### 2 4356-8 ####[facility] LABCLIA [id number] [place] [address] [facility] [place] Urobilinogen Ql (U) 0.2 EU/dL Normal 0.2-1.0 EU/dL [facility] Comment on above: Order Comment: Speci men Type: URINE SPECIMENOrdering Facility: [facility] Address: [address] [place] [address] Performed By: #### 2 4356-8 ####[facility] LABCLIA [id number] [place] [address] [place] WBC LM.HPF (Urine sed) [#/Area] 6-10 /HPF Abnormal 0-5 /HPF [facility] Comment on above: Order Comment: Speci men Type: URINE SPECIMENOrdering Facility: [facility] Address: [facility] [place] [address] Performed By: #### 2 4356-8 ####[facility] LABCLIA [id number] [place] [address] [place] COVID 19, CHICHO WC(RT COLLECT )on 03-17-2021 SARS-CoV-2 (COVID-19) RNA CHICHO+probe Ql (Unsp spec) Not detected Normal Not Detect [facility] Comment on above: Result Comment: Norm al Reference Range: Not Detected Method:(RT-PCR) real-time reverse transcriptase PCR [employer] [address] Instrument *The Food and Drug Administration (FDA) has issued an Emergency Use Authorization (EAU) for the [address] SARS-CoV-2 Assay for the rapid detection of [...] exposure. Performed By: #### L 3400.2405 #### [facility] [address] [place], [address] HAND RIGHT COMPLETEon 2020 HAND RIGHT COMPLETE EXAM: Right hand HISTORY: Pain after shutting a door on the hand on 01/27/2021. TECHNIQUE: 3 views of the right hand were obtained. FINDINGS: There is no evidence of fracture or dislocation. There are no suspicious bone lesions. Soft tissues are normal. IMPRESSION: No acute findings. Normal [facility] BASIC METABOLIC PANELon 01-0 Anion gap [Moles/Vol] 13 mmol/L Normal 10 - 20 [facility] Comment on above: Performed By: #### B MP #### [address] [address] Calcium [Mass/Vol] 9.5 mg/dL Normal 8.6 - 10.3 [facility] Comment on above: Performed By: #### B MP #### [address] [address] Chloride [Moles/Vol] 104 mmol/L Normal 98 - 107 [facility] Comment on above: Performed By: #### B MP #### [address] [address] Creatinine [Mass/Vol] 0.76 mg/dL Normal 0.50 - 1.05 [facility] Comment on above: Performed By: #### B MP #### [address] [address] GFR- AM. >60 Normal >60 [facility] Comment on above: Result Comment: CALC ULATIONS OF ESTIMATED GFR ARE PERFORMED USING THE MDRD STUDY EQUATION FOR THE IDMS-TRACEABLE CREATININE METHODS. CLIN CHEM 2007;53:766-72 Performed By: #### B MP #### [address] [address] GFR-NON AM. >60 Normal >60 [facility] Comment on above: Performed By: #### B MP #### [address] [address] Glucose [Mass/Vol] 88 mg/dL Normal 74 - 99 [facility] Comment on above: Performed By: #### B MP #### [address] [address] HCO3 (Bld) [Moles/Vol] 27 mmol/L Normal 21 - 32 [facility] Comment on above: Performed By: #### B MP #### [address] [address] Potassium [Moles/Vol] 3.8 mmol/L Normal 3.5 - 5.3 [facility] Comment on above: Performed By: #### B MP #### [address] [address] Sodium [Moles/Vol] 140 mmol/L Normal 136 - 145 [facility] Comment on above: Performed By: #### B MP #### [address] [address] Urea nitrogen [Mass/Vol] 11 mg/dL Normal 6 - 23 [facility] Comment on above: Performed By: #### B MP #### [address] [address] CBCon 10-17-2019 Erythrocyte distribution width (RBC) [Ratio] 12.5 % Normal 11.5 - 14.5 [facility] Comment on above: Performed By: #### C BC #### [address] [address] Hematocrit (Bld) [Volume fraction] 42.6 % Normal 36.0 - 46.0 [facility] Comment on above: Performed By: #### C BC #### [address] [address] Hemoglobin (Bld) [Mass/Vol] 14.5 g/dL Normal 12.0 - 16.0 [facility] Comment on above: Performed By: #### C BC #### [address] [address] MCHC (RBC) [Mass/Vol] 34.1 g/dL Normal 32.0 - 36.0 [facility] Comment on above: Performed By: #### C BC #### [address] [address] MCV (RBC) [Entitic vol] 91 fL Normal 80 - 100 [facility] Comment on above: Performed By: #### C BC #### [address] [address] Platelets (Bld) [#/Vol] 270 10*3/uL Normal 150 - 450 [facility] Comment on above: Performed By: #### C BC #### [address] [address] RBC (Bld) [#/Vol] 4.67 x10E12/L Normal 4.00 - 5.20 [facility] Comment on above: Performed By: #### C BC #### [address] [address] WBC (Bld) [#/Vol] 8.2 10*3/uL Normal 4.4 - 11.3 [facility] Comment on above: Performed By: #### C BC #### [address] [address] [address] HEAD WO CONTRASTon 2019 CT HEAD WO CONTRAST Patient Name: LUZ MTZ STUDY: CT of the head without contrast INDICATION: dizzy/trauma COMPARISON: None ACCESSION NUMBER(S): [id number] ORDERING CLINICIAN: RASHMI FERRERA TECHNIQUE: A CT scan of the head was performed from the skull base to the vertex, without intravenous contrast. FINDINGS: The ventricles and sulci are within normal limits. There is no evidence of intraparenchymal hemorrhage or mass effect. The olve-white junction is intact. The visualized paranasal sinuses are normal. The mastoid air cells are clear. The intraorbital contents are normal.Minimal soft tissue thickening is seen overlying the right frontal region.There is no calvarial fracture. IMPRESSION: 1. Minimal soft tissue thickening overlying right frontal region without calvarial fracture or intracranial hemorrhage. 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 Patient states she believes she has [...] made to minimize errors. Minor errors in resident care manager may be present. Please call if questions. [...] Vital Sign Value Date Temp (F): 99.3 01-06-2020 22:16 Temp (C): 37.3 10-16-2019 22:16 Heart [...] SIGNIFICANT EVENTS: Past Medical History Description:KIDNEY REFLUX CLIENT COORDINATOR: Is : no(1) Is : no(1) RESULTS/VITAL [...] at 10/17/2019 01:39 Appearance, Urine CLEAR Specific Interior, Urine 1.021 pH, Urine 7.0 Protein, Urine [...] SIGNS: T PRBP SpO2O2(LPM) %FiO2 Method 17-Oct-2019 01:27:00-8695321/80 100 room air, no respiratory support 16-Oct-2019 22:16:00-37.789982186 /78 99 room air, no respiratory support 16-Oct-2019 22:00:00-37.917917161 /78 99 room air, no respiratory support [...] v2 Last Updated: 17-Oct-2019 03:25 by Rashmi Ferrera) References: 1. Data Referenced From Triage - ED 16-Oct-2019 22:16 [facility] Risk Screen - Adult Emergenc yon 10-17-2019 Risk Screen - Adult Emergency Preferred Language: Preferred Language: Preferred Language for Discussing Health Care (patient/designee)Eng radha Advanced Directives: Advance Directive/DNRno Family Violence Adult: [...] Trauma Center ([facility]/[place]/[facility]/[place]): no Electronic Signatures: Lisette Junior (ZAK) (Signed 16-Oct-2019 22:23) Authored: Preferred Language, Advanced Directives, Family Violence Adult, Learning Assessment (Patient), Learning Assessment (Other Learner), Pressure Injury/TB/Substance, CAGE Last Updated: 16-Oct-2019 22:23 by Lisette Junior (ZAK) [facility] Triage - EDon 10-17-2019 Triage - ED [...] BMI (kg/m2): 29.674 Calculated BSA (m2) 1.75 [place] Coma Scale: Best Eye Response: (E4) spontaneous Best Motor Response: (M6) obeys commands Best Verbal Response: (V5) oriented Amador Score: 15 Cough lasting greater than 3 weeks: no Patient immunocompromised related to: N/A Travel outside of [facility]: no Allergies: yes Last menstrual period: 04-Oct-2019 [...] Language Preferred: Cymro Reading Language Preferred: Cymro 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 CELLS 1+ /HPF Normal [facility] Comment on above: Performed By: #### U AMIC #### [place] [address] TRANSITIONAL EPITH.CELLS Negative Normal [facility] Comment on above: Performed By: #### U AMIC #### [place] [address] WBC (Bld) [#/Vol] 5-20 Abnormal 0-5 [facility] Comment on above: Performed By: #### U AMIC #### [place] [address] URINALYSISon 10-17-2019 Appearance (U) CLEAR Normal CLEAR [facility] Comment on above: Result Comment: This is a corrected result. Previous value was HAZY, verified at 10/17/2019 01:39 Performed By: #### U A #### [place] [address] Color (U) YELLOW Normal STRAW,YELLOW [facility] Comment on above: Result Comment: This is a corrected result. Previous value was Red, verified at 10/17/2019 01:39 Performed By: #### U A #### [place] [address] Bilirubin (U) [Mass/Vol] Negative Normal NEGATIVE [facility] Comment on above: Performed By: #### U A #### [place] [address] BLOOD SMALL(1+) Abnormal NEGATIVE [facility] Comment on above: Performed By: #### U A #### [place] [address] Glucose [Mass/Vol] Negative Normal NEGATIVE [facility] Comment on above: Performed By: #### U A #### [place] [address] Ketones Ql (U) Negative Normal NEGATIVE [facility] Comment on above: Performed By: #### U A #### [place] [address] Leukocyte esterase Test strip Ql (U) TRACE Abnormal NEGATIVE [facility] Comment on above: Performed By: #### U A #### [place] [address] Nitrite Ql (U) Negative Normal NEGATIVE [facility] Comment on above: Performed By: #### U A #### [address] [address] pH (Bld) 7.0 Normal 5.0 - 8.0 [facility] Comment on above: Performed By: #### U A #### [address] [address] Protein (U) [Mass/Vol] Negative Normal NEGATIVE [facility] Comment on above: Performed By: #### U A #### [address] [address] Specific gravity (U) [Rel density] 1.021 Normal 1.005 - 1.035 [facility] Comment on above: Performed By: #### U A #### [address] [address] Urobilinogen Qn (U) <2.0 Normal 0.0 - 1.9 [facility] Comment on above: Performed By: #### U A #### [address] [address] URINE CULTURE,BACTERIALon URINE CULTURE,BACTERIAL TEST URINE CULTURE,BACTERIAL WAS CANCELLED, 10/19/2019 16:21 PATIENT DISCHARGED. PATIENT: LUZ MTZ LOCATION: [facility]#: [id number] : 89 AGE: SEX: F ORDERED BY: RASHMI FERRERA SOURCE: URINE COLLECTED: 10/17/19 02:24 ANTIBIOTICS AT JAMIE.: RECEIVED : SITE: Clean Catch/Voided R E S U L T S URINE CULTURE,BACTERIAL CANCELLED 10/19/19 16:21 Normal [facility] Comment on above: Performed By: #### [facility] #### [facility] [address] [place] [address] XR Foot 3+ Views Righton XR Foot 3+ Views Right Exam Date/Time: 04/28/2019 13:58 EDT Reason for Exam: Pain, Traumatic Report STUDY: XR Foot 3+ Views Right;; 04/28/2019 1:58 pm INDICATION: Pain, Traumatic. COMPARISON: None. ACCESSION NUMBER(S): [id number] ORDERING CLINICIAN: Alex Grubbs FINDINGS: No acute fracture or malalignment. No radiopaque foreign body. IMPRESSION: No acute osseous abnormality FINAL REPORT Dictated: 04/28/2019 2:30 pm Nancy Mills MD Signed (Electronic Signature): 04/28/2019 2:30 pm Signed by: Nancy Mills MD Technologist: JOHNSON Normal [facility] ABO/Rh Echoon 12-25-2018 ABO/Rh E Interp... Positive Normal [facility] Comment on above: Performed By: #### 2 [id number] #### [facility] [address] [place] [address] BhCG Quanton 12-25-2018 Beta hCG Qnt <0.6 Normal 0.0-2.[address] [facility] Comment on above: Performed By: #### 2 607265 #### [facility] [address] [place] [address] UA Completeon 12-25-2018 Color (U) Yellow Normal Yellow [facility] Comment on above: Performed By: #### 2 [id number] #### [facility] [address] [place] [address] Glucose (U) [Mass/Vol] Negative Normal Negative [facility] Comment on above: Performed By: #### 2 907065 #### [facility] [address] [place] [address] Ketones Ql (U) Negative Normal Negative [facility] Comment on above: Performed By: #### 2 396682 #### [facility] [address] [place] [address] RBC (U) [#/Vol] /uL Abnormal 0-[address] [facility] Comment on above: Performed By: #### 2 717162 #### [facility] [address] [place] [address] UA Blood 3+ Normal Negative [facility] Comment on above: Performed By: #### 2 263912 #### [facility] [address] [place] [address] UA Bacteria Trace Abnormal None [facility] Comment on above: Performed By: #### 2 109981 #### [facility] [address] [place] [address] UA Clarity Clear Normal Clear [facility] Comment on above: Performed By: #### 2 340233 #### [facility] [address] [place] [address] UA Leuk Est Negative Normal Negative [facility] Comment on above: Performed By: #### 2 471652 #### [facility] [address] [place] [address] UA Mucous Trace Abnormal Trace [facility] Comment on above: Performed By: #### 2 [id number] #### [facility] [address] [place] [address] UA Nitrite Negative Normal Negative [facility] Comment on above: Performed By: #### 2 006835 #### [facility] [address] [place] [address] UA pH 8.0 Normal 4.6-8.[address] [facility] Comment on above: Performed By: #### 2 912399 #### [facility] [address] [place] [address] UA Protein Negative Normal Negative [facility] Comment on above: Performed By: #### 2 163575 #### [facility] [address] [place] [address] UA Spec Grav 1.012 Normal 1.003-1.[address] [facility] Comment on above: Performed By: #### 2 926846 #### [facility] [address] [place] [address] UA Squam Epithelial 0-5 Normal 0-5 [facility] Comment on above: Performed By: #### 2 932221 #### [facility] [address] [place] [address] UA Urobilinogen Negative Normal [facility] Comment on above: Result Comment: Due to a manufacturing issue, low positive urobilinogen results may be fasely positive. Correlate with urine bilirubin and additional clinical/laboratory findings to assess the risk of hemolytic anemia or liver disease. If clinically indicated, repeat testing with an alternate method is available by contacting the laboratory within 24 hours. Performed By: #### 2 [id number] #### [facility] [address] [place] [address] UA WBC 5-10 Abnormal 0-[address] [facility] Comment on above: Performed By: #### 2 026247 #### [facility] [place] [address] Urobilinogen Qn (U) Negative Normal Negative [facility] Comment on above: Performed By: #### 2 943356 #### [facility] [place] [address] C Urineon 09-05-2018 C Urine Final Report: Light growth of Normal skin den isolated Normal [facility] Comment on above: Performed By: #### 2 004570 #### [facility] [place] [address] .Manual Abson 09-03-2018 Basophil Abs Man 0.0 10x3/ Normal 0.0-0.2 [facility] Comment on above: Order Comment: Order Added by Discern Expert. Performed By: #### 3 [id number] #### [facility] [address] [place] [address] Eos Abs Man 0.0 10x3/ Normal 0.0-0.[address] [facility] Comment on above: Order Comment: Order Added by Discern Expert. Performed By: #### 3 [id number] #### [facility] [address] [place] [address] Lymph Abs Man 0.5 10x3/ Low 1.2-3.[address] [facility] Comment on above: Order Comment: Order Added by Discern Expert. Performed By: #### 3 [id number] #### [facility] [address] [place] [address] Mccreary Abs Man 0.4 10x3/ Normal 0.0-0.[address] [facility] Comment on above: Order Comment: Order Added by Discern Expert. Performed By: #### 3 [id number] #### [facility] [address] [place] [address] Segs Abs Man 7.8 10x3/ High 1.4-6.[address] [facility] Comment on above: Order Comment: Order Added by Discern Expert. Performed By: #### 3 [id number] #### [facility] [address] [place] [address] BMPon 09-03-2018 Anion gap [Moles/Vol] 14 mmol/L Normal 10-20 [facility] Comment on above: Performed By: #### 2 589465 #### [facility] [address] [place] [address] Calcium [Mass/Vol] 8.8 mg/dL Normal 8.5-10.7 [facility] Comment on above: Performed By: #### 2 345862 #### [facility] [address] [place] [address] Chloride [Moles/Vol] 102 mmol/L Normal 98-107 [facility] Comment on above: Performed By: #### 2 319866 #### [facility] [address] [place] [address] CO2 [Moles/Vol] 24.0 mmol/L Normal 21.0-32.0 [facility] Comment on above: Performed By: #### 2 211590 #### [facility] [address] [place] [address] Creatinine [Mass/Vol] 0.8 mg/dL Normal 0.5-1.1 [facility] Comment on above: Performed By: #### 2 497488 #### [facility] [address] [place] [address] Glucose [Mass/Vol] 100 mg/dL High 70-99 [facility] Comment on above: Performed By: #### 2 463984 #### [facility] [address] [place] [address] Potassium [Moles/Vol] 3.2 mmol/L Low 3.5-5.3 [facility] Comment on above: Performed By: #### 2 335156 #### [facility] [address] [place] [address] Sodium [Moles/Vol] 137 mmol/L Normal 136-145 [facility] Comment on above: Performed By: #### 2 313828 #### [facility] [address] [place] [address] Urea nitrogen [Mass/Vol] 11 mg/dL Normal 6-[address] [facility] Comment on above: Performed By: #### 2 729832 #### [facility] [place] [address] Urea nitrogen/Creatinine [Mass ratio] 13.8 ratio Normal 5.4-30.[address] [facility] Comment on above: Performed By: #### 2 402461 #### [facility] [address] [place] [address] CBC w/ Auto Diffon 8 Erythrocyte distribution width (RBC) [Ratio] 13.0 % Normal 11.5-14.[address] [facility] Comment on above: Performed By: #### 2 751591 #### [facility] [address] [place] [address] Hematocrit (Bld) [Volume fraction] 37.2 % Normal 36.0-48.[address] [facility] Comment on above: Performed By: #### 2 663497 #### [facility] [address] [place] [address] Hemoglobin (Bld) [Mass/Vol] 12.7 g/dL Normal 12.0-16.[address] [facility] Comment on above: Performed By: #### 2 160767 #### [facility] [address] [place] [address] MCH (RBC) [Entitic mass] 31.2 pg High 27.0-31.[address] [facility] Comment on above: Performed By: #### 2 813606 #### [facility] [address] [place] [address] MCHC (RBC) [Mass/Vol] 34.2 g/dL Normal 33.0-37.0 [facility] Comment on above: Performed By: #### 2 749752 #### [facility] [address] [place] [address] MCV (RBC) [Entitic vol] 91.4 fL Normal 78.0-100.[address] [facility] Comment on above: Performed By: #### 2 500125 #### [facility] [place] [address] Platelet mean volume (Bld) [Entitic vol] 8.2 fL Normal 7.4-11.[address] [facility] Comment on above: Performed By: #### 2 856128 #### [facility] [place] [address] Platelets (Bld) [#/Vol] 201 E3/mcL Normal 130-[address] [facility] Comment on above: Performed By: #### 2 030823 #### [facility] [place] [address] RBC (Bld) [#/Vol] 4.07 E6/mcL Normal 3.90-5.40 [facility] Comment on above: Performed By: #### 2 265763 #### [facility] [place] [address] WBC (Bld) [#/Vol] 8.9 E3/mcL Normal 3.6-11.0 [facility] Comment on above: Performed By: #### 2 268952 #### [facility] [address] [place] [address] [address] Abdomen/Pelvis w/ Contras ton 09-03-2018 CT Abdomen/Pelvis w/ Contrast Exam Date/Time: 09/03/2018 21:35 EST Reason for Exam: Pain Report STUDY: CT Abdomen/Pelvis w/ Contrast; 09/03/2018 9:35 pm INDICATION: Pain. Pain COMPARISON: No comparison available ACCESSION NUMBER(S): [id number] ORDERING CLINICIAN: Miles Horn TECHNIQUE: CT of [...] by: Joaquin Lobo MD Technologist: JOHN, Normal [facility] Hep Func Panelon 09-03-2018 Albumin [Mass/Vol] 4.3 g/dL Normal 3.4-5.0 [facility] Comment on above: Performed By: #### 2 [id number] #### [facility] [address] [place] [address] Albumin/Globulin [Mass ratio] 1.7 {ratio} Normal 1.1-1.[address] [facility] Comment on above: Performed By: #### 2 971387 #### [facility] [address] [place] [address] Alk Phos 59 Int._Unit/L Normal 33-[address] [facility] Comment on above: Performed By: #### 2 849420 #### [facility] [address] [place] [address] ALT [Catalytic activity/Vol] 18 Int._Unit/L Normal 7-[address] [facility] Comment on above: Performed By: #### 2 387308 #### [facility] [address] [place] [address] AST [Catalytic activity/Vol] 18 Int._Unit/L Normal 9-[address] [facility] Comment on above: Performed By: #### 2 588410 #### [facility] [address] [place] [address] Bili Direct 0.16 mg/dL Normal 0.00-0.[address] [facility] Comment on above: Performed By: #### 2 710861 #### [facility] [address] [place] [address] Bili Indirect 0.[address] [facility] Comment on above: Performed By: #### 2 659119 #### [place] [place] [address] [place] [address] Bili Total 0.9 mg/dL Normal 0.0-1.[address] [facility] Comment on above: Performed By: #### 2 620741 #### [facility] [place] [address] [place] [address] Globulin (S) [Mass/Vol] 3.0 g/dL Normal 2.0-4.[address] [facility] Comment on above: Performed By: #### 2 668401 #### [facility]on[address] [address] Protein [Mass/Vol] 6.8 g/dL Normal 6.4-8.2 [facility] Comment on above: Performed By: #### 2 185272 #### [facility] [address] Influenza A&B Agon 8 Influenzae A Ag Negative Normal Negative [facility] Comment on above: Performed By: #### 2 781962 #### [facility] [place] [address] [place] [address] Influenzae B Ag Negative Normal Negative [facility] Comment on above: Performed By: #### 2 495421 #### [facility] [address] [place] [address] Lactic Acidon 09-03-2018 Lactate [Moles/Vol] 0.8 mmol/L Normal 0.4-2.0 [facility] Comment on above: Performed By: #### 2 087026 #### [facility] [address] [place] [address] Lipase Levelon 09-03-2018 Lipase Lvl 12 Int._Unit/L Normal 9-[address] [facility] Comment on above: Performed By: #### 2 188351 #### [facility] [address] [place] [address] Manual Diffon 09-03-2018 Band form neutrophils/100 WBC (Bld) 1 Normal 0-[address] [facility] Comment on above: Order Comment: Order Added by Discern Expert. Performed By: #### 2 695942 #### [facility] [address] [place] [address] Basophil Man 0 % Normal 0-[address] [facility] Comment on above: Order Comment: Order Added by Discern Expert. Performed By: #### 2 230233 #### [facility] [address] [place] [address] Eosinophils/100 WBC (Bld) 0 % Normal 0-[address] [facility] Comment on above: Order Comment: Order Added by Discern Expert. Performed By: #### 2 426151 #### [facility] [address] [place] [address] Lymphocytes/100 WBC (Bld) 6 % Low 14-[address] [facility] Comment on above: Order Comment: Order Added by Discern Expert. Performed By: #### 2 787538 #### [facility] [address] [place] [address] Monocyte Man 5 % Normal 1-[address] [facility] Comment on above: Order Comment: Order Added by Discern Expert. Performed By: #### 2 852647 #### [facility] [address] [place] [address] RBC morphology finding Nom (Bld) NORMAL Normal [facility] Comment on above: Order Comment: Order Added by Discern Expert. Performed By: #### 2 452917 #### [facility] [address] [place] [address] Segs Man 88 % High 37-[address] [facility] Comment on above: Order Comment: Order Added by Discern Expert. Performed By: #### 2 111618 #### [facility] [address] [place] [address] TSHon 09-03-2018 TSH Qn 0.89 mcIU/mL Normal 0.30-5.60 [facility] Comment on above: Order Comment: With T4fr Reflex Performed By: #### 2 782096 #### [facility] [address] [place] [address] U BhCG Qlton 09-03-2018 HCG.beta subunit Qn Negative Normal Neg [facility] Comment on above: Performed By: #### 2 725062 #### [facility] [address] [place] [address] UA Completeon 09-03-2018 Color (U) Yellow Normal Yellow [facility] Comment on above: Order Comment: Strai ght Cath as needed Performed By: #### 2 321376 #### [facility] [address] [place] [address] Glucose (U) [Mass/Vol] Negative Normal Negative [facility] Comment on above: Order Comment: Strai ght Cath as needed Performed By: #### 2 435600 #### [facility] [address] [place] [address] Ketones Ql (U) 1+ Abnormal Negative [facility] Comment on above: Order Comment: Strai ght Cath as needed Performed By: #### 2 848476 #### [facility] [address] [place] [address] RBC (U) [#/Vol] 10-20 Abnormal 0-[address] [facility] Comment on above: Order Comment: Strai ght Cath as needed Performed By: #### 2 139700 #### [facility] [address] [place] [address] UA Blood 1+ Abnormal Negative [facility] Comment on above: Order Comment: Strai ght Cath as needed Performed By: #### 2 [id number] #### [facility] [address] [place] [address] UA Ascorbic Acid 40 mg/dL High <=19 [facility] Comment on above: Order Comment: Strai ght Cath as needed Performed By: #### 2 744701 #### [facility] [address] [place] [address] UA Clarity SltCloudy Abnormal Clear [facility] Comment on above: Order Comment: Strai ght Cath as needed Performed By: #### 2 773333 #### [facility] [address] [place] [address] UA Leuk Est 1+ Abnormal Negative [facility] Comment on above: Order Comment: Strai ght Cath as needed Performed By: #### 2 647805 #### [facility] [address] [place] [address] UA Mucous Trace Abnormal Trace [facility] Comment on above: Order Comment: Strai ght Cath as needed Performed By: #### 2 265902 #### [facility] [address] [place] [address] UA Nitrite Negative Normal Negative [facility] Comment on above: Order Comment: Strai ght Cath as needed Performed By: #### 2 114267 #### [facility] [address] [place] [address] UA pH 7.0 Normal 4.6-8.[address] [facility] Comment on above: Order Comment: Strai ght Cath as needed Performed By: #### 2 936974 #### [facility] [address] [place] [address] UA Protein Negative Normal Negative [facility] Comment on above: Order Comment: Strai ght Cath as needed Performed By: #### 2 817337 #### [facility] [address] [place] [address] UA Spec Grav 1.015 Normal 1.003-1.[address] [facility] Comment on above: Order Comment: Strai ght Cath as needed Performed By: #### 2 731040 #### [facility] [address] [place] [address] UA Squam Epithelial 0-5 Normal 0-5 [facility] Comment on above: Order Comment: Strai ght Cath as needed Performed By: #### 2 170812 #### [facility] [address] [place] [address] UA Urobilinogen Negative Normal [facility] Comment on above: [...] within 24 hours. Performed By: #### 2 656628 #### [facility] [place] [id number] UA WBC 20-50 Abnormal 0-[address] [facility] Comment on above: Order Comment: Strai ght Cath as needed Performed By: #### 2 260367 #### [facility] [place] [id number] Urobilinogen Qn (U) Negative Normal Negative [facility] Comment on above: Order Comment: Strai ght Cath as needed Performed By: #### 2 941811 #### [facility] [place] [id number] eGFRon 09-03-2018 GFR/1.73 sq M predicted among non-blacks MDRD (S/P/Bld) [Vol rate/Area] mL/min/{1.73_m2} Normal [facility] Comment on above: Order Comment: Order added by Discern Expert. Performed By: #### 1 [id number] #### [facility] [place] [id number] zzplt morphon 09-03-2018 Platelet morphology finding Nom (Bld) NORMAL Normal [facility] Comment on above: Performed By: #### 9 [id number] #### [facility] [place] [id number] Platelets (Bld) [#/Vol] NORMAL Normal [facility] Comment on above: Performed By: #### 9 [id number] #### [facility] [place] [id number] Vital Signs Date Time Vital Sign Value Performing Clinician Facility 04-02-2023 16:00-0400 Body temperature 97.88 [degF] SUNIL GRAHAM MD [facility] 04-02-2023 16:00-0400 Diastolic Blood Pressure Non-Invasive 66 1 SUNIL GRAHAM MD [facility] 04-02-2023 16:00-0400 Heart rate 77 /min SUNLI GRAHAM MD [facility] 04-02-2023 16:00-0400 Respiratory rate 18 /min SUNIL GRAHAM MD [facility] 04-02-2023 16:00-0400 Systolic Blood Pressure Non-Invasive 110 1 SUNIL GRAHAM MD [facility] 04-02-2023 10:00-0400 Body temperature 97.7 [degF] SUNIL GRAHAM MD [facility] 04-02-2023 10:00-0400 Diastolic Blood Pressure Non-Invasive 48 1 SUNIL GRAHAM MD [facility] 04-02-2023 10:00-0400 Heart rate 81 /min SUNIL GRAHAM MD [facility] 04-02-2023 10:00-0400 Systolic Blood Pressure Non-Invasive 97 1 SUNIL GRAHAM MD [facility] 04-02-2023 00:31-0400 Body temperature 97.88 [degF] SUNIL GRAHAM MD [facility] 04-02-2023 00:31-0400 Diastolic Blood Pressure Non-Invasive 59 1 SUNIL GRAHAM MD [facility] 04-02-2023 00:31-0400 Heart rate 68 /min SUNIL GRAHAM MD [facility] 04-02-2023 00:31-0400 Reason For Taking VItal Signs SUNIL GRAHAM MD [facility] 04-02-2023 00:31-0400 Respiratory rate 16 /min SUNIL GRAHAM MD [facility] 04-02-2023 00:31-0400 Systolic Blood Pressure Non-Invasive 113 1 SUNIL GRAHAM MD [facility] 04-01-2023 16:20-0400 Reason For Taking VItal Signs SUNIL GRAHAM MD [facility] 04-01-2023 08:41-0400 Reason For Taking VItal Signs SUNIL GRAHAM MD [facility] 03-31-2023 23:30-0400 Body temperature 97.88 [degF] SUNIL GRAHAM MD [facility] 03-31-2023 15:25-0400 Body temperature 98.42 [degF] SUNIL GRAHAM MD [facility] 03-31-2023 08:36-0400 Body temperature 98.24 [degF] SUNIL GRAHAM MD [facility] 03-30-2023 07:49-0400 Body height 155 cm SUNIL GRAHAM MD [facility] 03-30-2023 07:49-0400 Body weight 78 kg SUNIL GRAHAM MD [facility] 03-30-2023 07:49-0400 Body weight 32.47 kg/m2 SUNIL GRAHAM MD [facility] 03-07-2023 20:03-0400 Body temperature 98.6 [degF] MARTINEZ NÚÑEZ MD [facility] 03-07-2023 20:03-0400 Diastolic Blood Pressure Non-Invasive 69 1 MARTINEZ NÚÑEZ MD [facility] 03-07-2023 20:03-0400 Heart rate 91 /min MARTINEZ NÚÑEZ MD [facility] 03-07-2023 20:03-0400 Respiratory rate 18 /min MARTINEZ NÚÑEZ MD [facility] 03-07-2023 20:03-0400 Systolic Blood Pressure Non-Invasive 115 1 MARTINEZ NÚÑEZ MD [facility] 03-07-2023 20:02-0400 Body height 155 cm MARTINEZ NÚÑEZ MD [facility] 03-07-2023 20:02-0400 Body weight 79.5 kg MARTINEZ NÚÑEZ MD [facility] 03-07-2023 20:02-0400 Body weight 33.09 kg/m2 MARTINEZ NÚÑEZ MD [facility] 03-06-2023 17:39-0400 Body temperature 98.06 [degF] MARTINEZ NÚÑEZ MD [facility] 03-06-2023 17:39-0400 Diastolic Blood Pressure Non-Invasive 76 1 MARTINEZ NÚÑEZ MD [facility] 03-06-2023 17:39-0400 Heart rate 125 /min MARTINEZ NÚÑEZ MD [facility] 03-06-2023 17:39-0400 Systolic Blood Pressure Non-Invasive 113 1 MARTINEZ NÚÑEZ MD [facility] 03-06-2023 17:37-0400 Body height 155 cm MARTINEZ NÚÑEZ MD [facility] 03-06-2023 17:37-0400 Body weight 79.5 kg MARTINEZ NÚÑEZ MD [facility] 03-06-2023 17:37-0400 Body weight 33.09 kg/m2 MARTINEZ NÚÑEZ MD [facility] 01-26-2023 03:20-0400 Diastolic Blood Pressure Non-Invasive 67 1 MARTINEZ NÚÑEZ MD [facility] 01-26-2023 03:20-0400 Heart rate 107 /min MARTINEZ NÚÑEZ MD [facility] 01-26-2023 03:20-0400 Systolic Blood Pressure Non-Invasive 113 1 MARTINEZ NÚÑEZ MD [facility] 01-26-2023 02:34-0400 Diastolic Blood Pressure Non-Invasive 71 1 MARTINEZ NÚÑEZ MD [facility] 01-26-2023 02:34-0400 Heart rate 95 /min MARTINEZ NÚÑEZ MD [facility] 01-26-2023 02:34-0400 Systolic Blood Pressure Non-Invasive 116 1 AMRTINEZ NÚÑEZ MD [facility] 01-26-2023 02:15-0400 Body temperature 98.24 [degF] MARTINEZ NÚÑEZ MD [facility] 01-26-2023 01:46-0400 Diastolic Blood Pressure Non-Invasive 42 1 MARTINEZ NÚÑEZ MD [facility] 01-26-2023 01:46-0400 Heart rate 101 /min MARTINEZ NÚÑEZ MD [facility] 01-26-2023 01:46-0400 Systolic Blood Pressure Non-Invasive 114 1 MARTINEZ NÚÑEZ MD [facility] 01-26-2023 01:16-0400 Respiratory rate 16 /min MARTINEZ NÚÑEZ MD [facility] 01-26-2023 00:59-0400 Body height 155 cm MARTINEZ NÚÑEZ MD [facility] 01-26-2023 00:59-0400 Body weight 77.3 kg MARTINEZ NÚÑEZ MD [facility] 01-26-2023 00:59-0400 Body weight 32.17 kg/m2 MARTINEZ NÚÑEZ MD [facility] 11-18-2022 12:08-0500 Body temperature 98.24 [degF] SUNIL GRAHAM MD [facility] 11-18-2022 12:08-0500 Diastolic Blood Pressure Non-Invasive 82 1 SUNIL GRAHAM MD [facility] 11-18-2022 12:08-0500 Heart rate 108 /min SUNIL GRAHAM MD [facility] 11-18-2022 12:08-0500 Respiratory rate 18 /min SUNIL GRAHAM MD [facility] 11-18-2022 12:08-0500 Systolic Blood Pressure Non-Invasive 103 1 SUNIL GRAHAM MD [facility] 10-14-2022 11:01-0500 Body weight 80.06 kg Gretel Quintana MD Work Phone: [facility] 10-14-2022 11:01-0500 Diastolic blood pressure 56 mm[Hg] Gretel Quintana MD Work Phone: [facility] 10-14-2022 11:01-0500 Respiratory rate 18 /min Gretel Quintana MD Work Phone: [facility] 10-14-2022 11:01-0500 Systolic blood pressure 110 mm[Hg] Gretel Quintana MD Work Phone: [facility] 08-19-2022 13:06-0500 Body weight 85.5 kg Braulio Hollingsworth MD Work Phone: [facility] 08-19-2022 13:06-0500 Diastolic blood pressure 82 mm[Hg] Braulio Hollingsworth MD Work Phone: [facility] 08-19-2022 13:06-0500 Systolic blood pressure 102 mm[Hg] Braulio Hollingsworth MD Work Phone: [facility] 08-09-2022 18:09-0400 Diastolic blood pressure 74 mm[Hg] No Primary Care Physician [facility] Work Phone: 08-09-2022 18:09-0400 Heart rate 107 /min No Primary Care Physician [facility] Work Phone: 08-09-2022 18:09-0400 Respiratory rate 18 /min No Primary Care Physician [facility] Work Phone: 08-09-2022 18:09-0400 SaO2% (BldA) [Mass fraction] 94 % No Primary Care Physician [facility] Work Phone: 08-09-2022 18:09-0400 Systolic blood pressure 120 mm[Hg] No Primary Care Physician [facility] Work Phone: 08-09-2022 13:51-0400 Body height 154.94 cm No Primary Care Physician [facility] Work Phone: 08-09-2022 13:51-0400 Body mass index (BMI) [Ratio] 35.9 kg/m2 No Primary Care Physician [facility] Work Phone: 08-09-2022 13:51-0400 Body temperature 98.2 [degF] No Primary Care Physician [facility] Work Phone: 08-09-2022 13:51-0400 Body weight 86.4 kg No Primary Care Physician [facility] Work Phone: 08-04-2022 13:54-0400 Diastolic blood pressure 76 mm[Hg] Melania Mitchell MD Work Phone: [facility] 08-04-2022 13:54-0400 Heart rate 100 /min Melania Mitchell MD Work Phone: [facility] 08-04-2022 13:54-0400 Respiratory rate 16 /min Melania Mitchell MD Work Phone: [facility] 08-04-2022 13:54-0400 SaO2% (BldA) [Mass fraction] 98 % Melania Mitchell MD Work Phone: [facility] 08-04-2022 13:54-0400 Systolic blood pressure 102 mm[Hg] Melania Mitchell MD Work Phone: [facility] 08-04-2022 10:48-0400 Body height 154.9 cm Melania Mitchell MD Work Phone: [facility] 08-04-2022 10:48-0400 Body mass index (BMI) [Ratio] 30.23 kg/m2 Melania Mitchell MD Work Phone: [facility] 08-04-2022 10:48-0400 Body temperature 98.2 [degF] Melania Mitchell MD Work Phone: [facility] 08-04-2022 10:48-0400 Body weight 72.58 kg Melania Mitchell MD Work Phone: [facility] 07-08-2022 15:30-0400 Body temperature 98.2 [degF] No Primary Care Physician [facility] Work Phone: 07-08-2022 15:30-0400 Diastolic blood pressure 78 mm[Hg] No Primary Care Physician [facility] Work Phone: 07-08-2022 15:30-0400 Heart rate 89 /min No Primary Care Physician [facility] Work Phone: 07-08-2022 15:30-0400 Respiratory rate 14 /min No Primary Care Physician [facility] Work Phone: 07-08-2022 15:30-0400 SaO2% (BldA) [Mass fraction] 98 % No Primary Care Physician [facility] Work Phone: 07-08-2022 15:30-0400 Systolic blood pressure 124 mm[Hg] No Primary Care Physician [facility] Work Phone: 06-30-2022 00:36-0400 Diastolic blood pressure 76 mm[Hg] No Primary Care Physician [facility] Work Phone: 06-30-2022 00:36-0400 Heart rate 79 /min No Primary Care Physician [facility] Work Phone: 06-30-2022 00:36-0400 Respiratory rate 16 /min No Primary Care Physician [facility] Work Phone: 06-30-2022 00:36-0400 SaO2% (BldA) [Mass fraction] 96 % No Primary Care Physician [facility] Work Phone: 06-30-2022 00:36-0400 Systolic blood pressure 113 mm[Hg] No Primary Care Physician [facility] Work Phone: 06-29-2022 23:48-0400 Body temperature 98.9 [degF] No Primary Care Physician [facility] Work Phone: 06-29-2022 18:00-0400 Body mass index (BMI) [Ratio] 33 kg/m2 No Primary Care Physician [facility] Work Phone: 06-29-2022 18:00-0400 Body weight 79.37 kg No Primary Care Physician [facility] Work Phone: Encounters Encounter Date Encounter Type Care Provider Facility Start: 08-21-2025 End: 08-21-2025 ambulatory No Primary Care Physician Facility[facility] Start: 08-15-2025 ambulatory No Primary Care Physici an Facility:[facility] Start: 08-01-2025 End: 08-01-2025 ambulatory No Primary Care Physician Facility:[facility] Start: 08-01-2025 End: 08-01-2025 ambulatory No Primary Care Physician Facility:[facility] Start: 07-30-2025 End: 07-30-2025 ambulatory No Primary Care Physician Facility:[facility] Start: 07-29-2025 End: 07-30-2025 ambulatory No Primary Care Physician Facility:[facility] Start: 07-09-2025 End: 07-09-2025 ambulatory No Primary Care Physician Facility:[facility] Start: 07-09-2025 End: 07-09-2025 ambulatory Geraldine Bradford Facility:[facility] Start: 07-03-2025 End: 07-03-2025 ambulatory Remedios Garcia BUSINESS DEVELOPMENT INTERN Facility:[facility] Start: 07-03-2025 End: 07-03-2025 ambulatory Remedios Duttons BUSINESS DEVELOPMENT INTERN Facility:[facility] Start: 06-26-2025 End: 06-26-2025 ambulatory [facility] Start: 06-20-2025 End: 06-20-2025 ambulatory [facility] Start: 06-06-2025 End: 06-06-2025 ambulatory Rama Stuart Facility:[facility] Start: 05-30-2025 End: 05-30-2025 ambulatory No Primary Care Physician Facility:[facility] Start: 05-30-2025 End: 05-30-2025 ambulatory Rama Stuart Facility:[facility] Start: 05-14-2025 End: 05-14-2025 ambulatory No Primary Care Physician Facility:[facility] Start: 05-14-2025 End: 05-14-2025 ambulatory Geraldine Bradford Facility:[facility] Start: 05-07-2025 End: 05-07-2025 ambulatory No Primary Care Physician Facility:[facility] Start: 05-07-2025 End: 05-07-2025 ambulatory No Primary Care Physician Facility:[facility] Start: 04-09-2025 End: 04-09-2025 ambulatory No Primary Care Physician Facility:[facility] Start: 04-09-2025 End: 04-09-2025 ambulatory Remedios Garcia BUSINESS DEVELOPMENT INTERN Facility:[facility] Start: 03-15-2025 End: 03-15-2025 ambulatory No Primary Care Physician Facility:[facility] Start: 03-13-2025 End: 03-13-2025 ambulatory No Primary Care Physician Facility:[facility] Start: 03-13-2025 End: 03-13-2025 ambulatory No Primary Care Physician Facility:[facility] Start: 01-02-2025 End: 01-02-2025 Emergency department patient visit No Primary Care Physician Facility:[facility] Start: 08-03-2024 End: 08-18-2024 ambulatory KIRSTEN MAST COATING MACHINE OPERATOR HELPER-CORPORATE LAW ASSISTANT Facility:[facility] Start: 08-03-2024 End: 08-18-2024 Physical therapy management KIRSTEN MAST COATING MACHINE OPERATOR HELPER-CORPORATE LAW ASSISTANT [facility] Start: 02-18-2024 End: 02-19-2024 ambulatory KIRSTEN MAST COATING MACHINE OPERATOR HELPER-CORPORATE LAW ASSISTANT Facility:[facility] Start: 02-18-2024 End: 02-18-2024 Patient encounter procedure KIRSTEN MAST COATING MACHINE OPERATOR HELPER-CORPORATE LAW ASSISTANT [facility] Start: 10-15-2023 End: 10-16-2023 ambulatory OSMAN BRIAN PMHNP-BC Facility:[facility] Start: 10-15-2023 End: 10-15-2023 Patient encounter procedure OSMAN YUND PMHNP-BC [facility] Start: 03-30-2023 End: 04-02-2023 Evaluation and management of inpatient MARTINEZ NÚÑEZ MD Facility:[facility] Start: 03-30-2023 End: 04-02-2023 Evaluation and management of inpatient SUNIL GRAHAM MD [facility] Start: 03-18-2023 End: 03-18-2023 ambulatory MARTINEZ NÚÑEZ MD Facility:[facility] Start: 03-15-2023 End: 03-16-2023 ambulatory SUNIL GRAHAM MD Facility:[facility] Start: 03-15-2023 End: 03-15-2023 Patient encounter procedure SUNIL GRAHAM MD [facility] Start: 03-09-2023 End: 03-14-2023 ambulatory LONG DICKERSON MD Facility:[facility] Start: 03-09-2023 End: 03-10-2023 ambulatory LONG DICKERSON MD Facility:[facility] Start: 03-09-2023 End: 03-13-2023 Outreach Lab LONG DICKERSON MD [facility] Start: 03-09-2023 End: 03-09-2023 Patient encounter procedure LONG DICKERSON MD [facility] Start: 03-07-2023 End: 03-07-2023 ambulatory MARTINEZ NÚÑEZ MD Facility:[facility] Start: 03-07-2023 End: 03-07-2023 SAME DAY STAY MARTINEZ NÚÑEZ MD [facility] Start: 03-06-2023 End: 03-06-2023 ambulatory MARTINEZ NÚÑEZ MD Facility:[facility] Start: 03-06-2023 End: 03-06-2023 SAME DAY STAY MARTINEZ NÚÑEZ MD [facility] Start: 01-26-2023 End: 01-26-2023 SAME DAY STAY MARTINEZ NÚÑEZ MD [facility] Start: 01-25-2023 End: 01-25-2023 Patient encounter procedure SUNIL GRAHAM MD [facility] Start: 01-19-2023 End: 01-19-2023 Patient encounter procedure SUNIL GRAHAM MD [facility] Start: 01-05-2023 End: 01-05-2023 Patient encounter procedure SUNIL GRAHAM MD [facility] Start: 12-03-2022 Simin kirk DO Work Phone: [facility] Comment on above: Med Change Request Start: 11-18-2022 End: 11-18-2022 SAME DAY STAY SUNIL GRAHAM MD [facility] Start: 11-13-2022 End: 11-13-2022 Patient encounter procedure 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 COATING MACHINE OPERATOR HELPER-CORPORATE LAW ASSISTANT [facility] Start: 10-29-2022 End: 10-29-2022 ambulatory CHEKO MCCLELLAND Facility:[facility] Start: 10-14-2022 End: 10-14-2022 ambulatory GRETEL QUINTANA Facility:[facility] Start: 10-14-2022 End: 10-14-2022 Patient encounter procedure Gretel Quintana MD Work Phone: Obstetrics/Gynecolog y Comment on above: Encounter for superv ision of normal first in second trimester (Primary Dx); Need for influenza vaccination; 15 weeks gestation of Start: 09-21-2022 End: 09-21-2022 ambulatory FLORENCE HEWITT Facility:[facility] Start: 09-17-2022 End: 09-17-2022 ambulatory BRAULIO HOLLINGSWORTH Facility:[facility] Start: 08-21-2022 ambulatory Braulio Hollingsworth MD Work Phone: Obstetrics/Gynecolog y Comment on above: Luz oliveira Start: 08-19-2022 End: 08-19-2022 ambulatory BRAULIO HOLLINGSWORTH Facility:[facility] Start: 08-19-2022 End: 08-19-2022 Patient encounter procedure Braulio Hollingsworth MD Work Phone: Obstetrics/Gynecolog y Comment on above: Encounter for superv ision of normal first in first trimester (Primary Dx) with uncer tain dates in first trimester (Primary Dx) Start: 08-14-2022 End: 08-14-2022 ambulatory TANESHA HILTON Facility:[facility] Start: 08-10-2022 Telephone encounter Braulio connolly MD Work Phone: Obstetrics/Gynecolog y Comment on above: Patient Update Start: 08-09-2022 End: 08-09-2022 Emergency department patient visit No Primary Care Physician [facility] Start: 08-04-2022 End: 08-04-2022 [facility] Start: 08-04-2022 End: 08-04-2022 Emergency department patient visit Melania Mitchell MD Work Phone: [facility] Comment on above: Threatened miscarria ge in early (Primary Dx) Start: 07-20-2022 End: 07-20-2022 ambulatory No Primary Care Physician [facility] Work Phone: Start: 07-20-2022 End: 07-20-2022 Discharged Recurring No Primary Care Physician [facility] Start: 07-20-2022 Registered Recurring No Primary Care Physician [facility] Start: 07-09-2022 Telephone encounter Ledy gonzalez MD Work Phone: [facility] Comment on above: Missed Appointment ( #1 No Show, #1 Letter) Start: 07-08-2022 End: 07-08-2022 Patient encounter procedure No Primary Care Physician [facility] Start: 06-29-2022 End: 06-30-2022 Emergency department patient visit No Primary Care Physician [facility] Start: 05-31-2022 End: 05-31-2022 Emergency department patient visit HIWOT HUDSON Facility:[facility] Start: 12-31-2021 End: 12-31-2021 Emergency department patient visit JAYDE YEAGER Facility:[facility] Start: 01-27-2021 End: 01-27-2021 ambulatory Alex [phone] Lynsey [phone] Facility:[facility] Start: 12-25-2018 Patient encounter procedure Facility:[id number] Start: 09-03-2018 Patient encounter procedure Facility:[id number] Procedures Date Procedure Procedure Detail Performing Clinician Start: 01-04-2023 URINE OB DIP B/O Gretel J Ciro MD Work Phone: Start: 10-14-2022 INFLUENZA VACCINE QUADRIVALENT 6 MO - 64 YRS IM Gretel Quintana MD Work Phone: Start: 08-19-2022 End: 08-19-2022 Antibody screen Braulio Hollingsworth MD Work Phone: Comment on above: Order Comment: Speci men Type: BLOOD SPECIMEN Ordering Facility: [facility] Address: [address] [place] [address] Performed By: #### T SPN #### [facility] CLIA [id number] Start: 08-19-2022 Antibody screen rbc each serum technique Braulio Hollingsworth MD Work Phone: Start: 08-19-2022 Blood count complete automated Braulio Hollingsworth MD Work Phone: Start: 08-19-2022 URINE OB DIP B/O Alta Hollingsworht MD Work Phone: Start: 08-19-2022 Us uterus l imited 1/> fetuses Braulio Hollingsworth MD Work Phone: Start: 08-14-2022 Antibody screen CHEKO CASTILLO Comment on above: Order Comment: Speci men Type: BLOOD SPECIMEN Ordering Facility: [facility] Address: [address] [place] [address] Performed By: #### T SPN #### [facility] CLIA [id number] [place] Start: 08-09-2022 Transvaginal [...] of wisdom tooth (body structure) 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 COATING MACHINE OPERATOR HELPER-CORPORATE LAW ASSISTANT Plan of Treatment Date Care Activity Detail Author Start: 08-19-2025 PAP TESTING PAP TESTING [facility] Start: 05-14-2024 PAP TESTING PAP TESTING [facility] Start: 08-19-2023 CHLAMYDIA SCREENING (18-24) CHLAMYDIA SCREENING (18-24) [facility] Start: 08-19-2023 GC (GONORRHEA) SCREE SAADIA (18-24) GC (GONORRHEA) SCREENING (18-24) [facility] Start: 10-14-2022 End: 10-14-2023 OBSTETRIC ULTRASOUND WHI OBSTETRIC ULTRASOUND I Anc Imaging Routine Encounter for supervision of normal first in second trimester Expected: 10/14/2022, Expires: 10/14/2023 [facility] Work Phone: Comment on above: Expected: 10/14/2022 , Expires: 10/14/2023 Start: 10-11-2022 DEPRESSION ASSESSMENT DEPRESSION ASS ESSMENT [facility] Start: 08-19-2022 End: 10-19-2022 Hepatitis B virus surface Ab [Presence] in Serum by Immunoassay [facility] Work Phone: Comment on above: Expected: 08/19/2022 , Expires: 10/19/2022 Start: 08-19-2022 End: 10-19-2022 Hepatitis C virus Ab [Presence] in Serum [facility] Work Phone: Comment on above: Expected: 08/19/2022 , Expires: 10/19/2022 Start: 08-19-2022 End: 01-09-2023 HIV 1+2 Ab [Presence] in Serum or Plasma by Immunoassay [facility] Work Phone: Comment on above: Expected: 08/19/2022 , Expires: 10/19/2022 Start: 08-19-2022 End: 08-19-2023 NUCHAL TRANSLUCENCY WHI NUCHAL TRANSLUCENCY WHI Anc Imaging Routine Encounter for supervision of normal first in first trimester Expected: 08/19/2022, Expires: 08/19/2023 [facility] Work Phone: Comment on above: Expected: 08/19/2022 , Expires: 08/19/2023 Start: 08-19-2022 End: 10-19-2022 RUBELLA IGG AB [facility] Work Phone: Comment on above: Expected: 08/19/2022 , Expires: 10/19/2022 Start: 08-19-2022 End: 10-19-2022 SYPHILIS TOTAL W/REFLEX [facility] Work Phone: Comment on above: Expected: 08/19/2022 , Expires: 10/19/2022 Start: 07-08-2022 Patient referral [facility] Work Phone: Start: 06-11-2022 Influenza vaccination INFLUENZA (#1) [facility] Start: 05-14-2022 CHLAMYDIA SCREENING (18-24) CHLAMYDIA SCREENING (18-24) [facility] Start: 05-14-2022 GC (GONORRHEA) SCREE SAADIA (18-24) GC (GONORRHEA) SCREENING (18-24) [facility] Start: 05-11-2022 Influenza vaccination Flu vaccine (# 1) [facility] Start: 05-07-2022 Urine microalbumin profile DTAP,TDAP,TD (7 - Td or Tdap) [facility] Start: 10-11-2021 DEPRESSION ASSESSMENT DEPRESSION ASS ESSMENT [facility] Start: 05-17-2021 COVID-19 VACCINE (3 - Booster for Pfizer series) COVID-19 VACCINE (3 - Booster for Pfizer series) [facility] Start: 2020 Screening for malign ant neoplasm of cervix Pap smear [facility] Start: 2018 DTaP/Tdap/Td vaccine (1 - Tdap) DTaP/Tdap/Td vaccine (1 - Tdap) [facility] Start: 2017 HEPATITIS C SCREENING HEPATITIS C SC REENING [facility] Start: 2017 Hepatitis C screening Hepatitis C sc reen [facility] Start: 2017 HIV SCREENING HIV SCREENING [facility] Start: 2015 Screening for Chlamy jarod trachomatis Chlamydia/GC screen [facility] Start: 2014 HIV screening HIV screen [facility] Start: 2013 PEDS TO ADULT TRANSI TION ANNUAL ASSESSMENT PEDS TO ADULT TRANSITION ANNUAL ASSESSMENT [facility] Start: 2011 Depression Screen Depression Screen [facility] Start: 2011 PEDS TO ADULT TRANSI TION INITIAL DISCUSSION PEDS TO ADULT TRANSITION INITIAL DISCUSSION [facility] Start: 2010 HPV vaccine (1 - 2-d ose series) HPV vaccine (1 - 2-dose series) [facility] Start: 2009 MENINGOCOCCAL B: Consider based on risk (1 of 2 - Risk Bexsero 2-dose series) MENINGOCOCCAL B: Consider based on risk (1 of 2 - Risk Bexsero 2-dose series) [facility] Start: 2000 Varicella vaccine (1 of 2 - 2-dose childhood series) Varicella vaccine (1 of 2 - 2-dose childhood series) [facility] Start: 04-09-2000 COVID-19 VACCINE (#1) COVID-19 VACCI NE (#1) [facility] Bacteria identified in Urine by Culture URINE CULTURE Microbiology Routine Encounter for supervision of normal first in first trimester 08/19/2022 2:08 PM [facility] Work Phone: Chlamydia trachomatis+Neisseria gonorrhoeae DNA [Presence] in Unspecified specimen by CHICHO with probe detection GC/CHLAMYDIA DNA DET Lab Routine Encounter for supervision of normal first in first trimester 08/19/2022 2:13 PM EST [facility] Work Phone: PAP FLUID CERVICAL SCREENING PAP FLUID CERVICAL SCREENING Lab Routine Encounter for supervision of normal first in first trimester Ordered: 08/19/2022 [facility] Work Phone: Comment on above: Ordered: 08/19/2022 Patient Education [facility] Work Phone: Patient referral [facility] Work Phone: [facility] Immunizations Immunization Date Immunization Notes Care Provider Dion rollins 08-24-2023 tetanus toxoid, redu ibis diphtheria toxoid, and acellular pertussis vaccine, adsorbed KIRSTEN MAST COATING MACHINE OPERATOR HELPER-CORPORATE LAW ASSISTANT [facility] 02-01-2023 tetanus toxoid, redu ibis diphtheria toxoid, and acellular pertussis vaccine, adsorbed; Translations: [Boostrix (Tdap)] MARTINEZ NÚÑEZ MD [facility] Comment on above: Result Comment: [facility]- [id number] 10-14-2022 influenza virus vacc ine, unspecified formulation KIRSTEN MAST COATING MACHINE OPERATOR HELPER-CORPORATE LAW ASSISTANT [facility] 10-14-2022 influenza, injectabl e, quadrivalent, contains preservative Gretel Quintana MD Work Phone: [facility] 03-22-2021 SARS-CoV-2 mRNA (tozinameran) vaccine KIRSTEN MAST COATING MACHINE OPERATOR HELPER-CORPORATE LAW ASSISTANT [facility] 03-01-2021 SARS-CoV-2 mRNA (tozinameran) vaccine KIRSTEN MAST COATING MACHINE OPERATOR HELPER-CORPORATE LAW ASSISTANT [facility] 09-20-2020 influenza virus vacc ine, unspecified formulation KIRSTEN MAST COATING MACHINE OPERATOR HELPER-CORPORATE LAW ASSISTANT [facility] 09-08-2019 influenza virus vacc ine, unspecified formulation KIRSTEN MAST COATING MACHINE OPERATOR HELPER-CORPORATE LAW ASSISTANT [facility] 03-02-2018 varicella virus vaccine JT TA MAST COATING MACHINE OPERATOR HELPER-CORPORATE LAW ASSISTANT [facility] 07-26-2017 influenza virus vacc ine, unspecified formulation [facility] 05-11-2017 meningococcal polysaccharide (groups A, C, Y and W-135) diphtheria toxoid conjugate vaccine (MCV4P) [facility] 02-24-2016 meningococcal polysaccharide (groups A, C, Y and W-135) diphtheria toxoid conjugate vaccine (MCV4P) Ledy Vaughn MD Work Phone: [facility] 07-05-2014 influenza virus vacc ine, unspecified formulation [facility] 07-05-2014 influenza, injectabl e, quadrivalent, preservative free Ledy Vaughn MD Work Phone: [facility] Work Phone: 02-20-2014 human papilloma viru s vaccine, quadrivalent Ledy Vaughn MD Work Phone: [facility] 02-20-2014 Human Papillomavirus Quadval [facility] 05-18-2013 human papilloma viru s vaccine, quadrivalent Ledy Vaughn MD Work Phone: [facility] Work Phone: 05-07-2012 human papilloma viru s vaccine, quadrivalent Ledy Vaughn MD Work Phone: [facility] 05-07-2012 Meningococcal, MCV4, unspecified conjugate formulation(groups A, C, Y and W-135) Ledy Vaughn MD Work Phone: [facility] 05-07-2012 tetanus toxoid, redu ibis diphtheria toxoid, and acellular pertussis vaccine, adsorbed Ledy Vaughn MD Work Phone: [facility] 05-07-2012 varicella virus vaccine Chayo Harris MD Work Phone: [facility] 01-09-2005 diphtheria, tetanus toxoids and acellular pertussis vaccine Ledy Vaughn MD Work Phone: [facility] 01-09-2005 measles, mumps and rubella virus vaccine Ledy Vaughn MD Work Phone: [facility] 01-09-2005 poliovirus vaccine, inactivated Ledy Vaughn MD Work Phone: [facility] 04-26-2001 pneumococcal conjuga te vaccine, 7 valent Ledy Vaughn MD Work Phone: [facility] 02-17-2001 diphtheria, tetanus toxoids and acellular pertussis vaccine Ledy Vaughn MD Work Phone: [facility] Work Phone: 02-17-2001 haemophilus influenz ae type b vaccine, HbOC conjugate Ledy Vaughn MD Work Phone: [facility] Work Phone: 02-17-2001 pneumococcal conjuga te vaccine, 7 valent Ledy Vaughn MD Work Phone: [facility] 11-03-2000 measles, mumps and rubella virus vaccine Ledy Vaughn MD Work Phone: [facility] Work Phone: 11-03-2000 measles/mumps/rubell a virus vaccine KIRSTEN CISNEROS COATING MACHINE OPERATOR HELPER-CORPORATE LAW ASSISTANT [facility] 11-03-2000 varicella virus vaccine Chayo Harris MD Work Phone: [facility] Work Phone: 05-05-2000 diphtheria, tetanus toxoids and acellular pertussis vaccine Ledy Vaughn MD Work Phone: [facility] Work Phone: 05-05-2000 haemophilus influenz ae type b vaccine, HbOC conjugate Ledy Vaughn MD Work Phone: [facility] Work Phone: 05-05-2000 hepatitis B vaccine, pediatric or pediatric/adolescent dosage Ledy Vaughn MD Work Phone: [facility] Work Phone: 05-05-2000 poliovirus vaccine, inactivated Ledy Vaughn MD Work Phone: [facility] Work Phone: 03-03-2000 diphtheria, tetanus toxoids and acellular pertussis vaccine Ledy Vaughn MD Work Phone: [facility] Work Phone: 03-03-2000 haemophilus influenz ae type b vaccine, HbOC conjugate Ledy Vaughn MD Work Phone: [facility] Work Phone: 03-03-2000 poliovirus vaccine, inactivated Ledy Vaughn MD Work Phone: [facility] Work Phone: 1999 diphtheria, tetanus toxoids and acellular pertussis vaccine Ledy Vaughn MD Work Phone: [facility] Work Phone: 1999 haemophilus influenz ae type b vaccine, HbOC conjugate Ledy Vaughn MD Work Phone: [facility] Work Phone: 1999 hepatitis B vaccine, pediatric or pediatric/adolescent dosage Ledy Vaughn MD Work Phone: [facility] Work Phone: 1999 poliovirus vaccine, inactivated Ledy Vaughn MD Work Phone: [facility] Work Phone: 1999 hepatitis B pediatri c vaccine KIRSTEN CISNEROS COATING MACHINE OPERATOR HELPER-CORPORATE LAW ASSISTANT [facility] 1999 hepatitis B vaccine, pediatric or pediatric/adolescent dosage Ledy Vaughn MD Work Phone: [facility] Work Phone: Payers Date Payer Category Payer Self-pay [id number] 2025 Unknown [id number] 2023 Unknown [id number] 2021 Unknown [id number] 2021 Unknown [id number] 2021 Unknown [id number] 1999 Unknown [id number] 2.16. 840.1.480036.3.579.2.356 1999 Unknown [id number] 2.16. 840.1.292338.3.579.2.356 1999 Unknown [id number] 2.16.8 40.1.325660.3.579.2.419 1999 Unknown [id number] 2.16. 840.1.016324.3.579.2.668 1999 Unknown [id number] 2.16.8 40.1.309081.3.579.2.627 1999 Unknown [id number] 2.16.8 40.1.792678.3.579.2.627 1999 Unknown [id number] 2.16.8 40.1.518777.3.579.2.627 1999 Unknown [id number] 2.16.8 40.1.847567.3.579.2.627 1999 Unknown [id number] 2.16.8 40.1.571903.3.579.2.627 1999 Unknown [id number] 2.16.8 40.1.404248.3.579.2.627 1999 Unknown [id number] 2.16.8 40.1.346737.3.579.2.627 1999 Unknown [id number] 2.16.8 40.1.356538.3.579.2.627 1999 Unknown [id number] 2.16.8 40.1.492839.3.579.2.627 1999 Unknown [id number] 2.16.8 40.1.945739.3.579.2.627 1999 Unknown [id number] 2.16. 840.1.128921.3.579.2.479 1999 Unknown [id number] 2.16. 840.1.326065.3.579.2.479 1999 Unknown [id number] 2.16. 840.1.903200.3.579.2.479 Unknown [id number] Unknown [facility] [id number] Unknown [facility] [id number] Unknown [facility] [id number] Unknown [id number] 2.16.8 40.1.344614.3.579.2.462 Unknown [id number] 2.16.8 40.1.340980.3.579.2.462 Unknown [id number] 2.16.8 40.1.218898.3.579.2.462 Unknown [id number] 2.16.8 40.1.545709.3.579.2.462 Unknown [id number] 2.16.8 40.1.494314.3.579.2.462 Unknown [id number] 2.16.8 40.1.061657.3.579.2.462 Unknown [id number] 2.16.8 40.1.557132.3.579.2.462 Unknown [id number] 2.16.8 40.1.008732.3.579.2.462 Unknown [id number] 2.16.8 40.1.720642.3.579.2.462 Unknown [id number] 2.16.8 40.1.662669.3.579.2.462 Unknown [id number] 2.16.8 40.1.869924.3.579.2.462 Unknown [id number] 2.16.8 40.1.277702.3.579.2.462 Unknown [id number] 2.16.8 40.1.909107.3.579.2.462 Unknown [id number] 2.16.8 40.1.712264.3.579.2.462 Unknown [id number] 2.16.8 40.1.370893.3.579.2.462 Unknown [id number] 2.16.8 40.1.902041.3.579.2.462 Unknown [id number] 2.16.8 40.1.146865.3.579.2.462 Unknown [id number] 2.16.8 40.1.321305.3.579.2.462 Unknown [id number] 2.16.8 40.1.000263.3.579.2.462 Unknown [id number] 2.16.8 40.1.171926.3.579.2.462 Unknown [id number] 2.16.8 40.1.296810.3.579.2.462 Unknown [id number] 2.16.8 40.1.504169.3.579.2.462 Unknown [id number] 2.16.8 40.1.599547.3.579.2.462 Unknown [id number] 2.16.8 40.1.244795.3.579.2.462 Unknown [id number] 2.16.8 40.1.600866.3.579.2.462 Unknown [id number] 2.16.8 40.1.924489.3.579.2.462 Unknown [id number] 2.16.8 40.1.525071.3.579.2.462 Social History Date Type Detail Facility Start: 12-31-2021 End: 07-28-2024 Tobacco smoking status NHIS Never smoked tobacco [facility] Start: 12-31-2021 End: 08-19-2022 Tobacco use and exposure Smokeless tobacco non-user [facility] Start: 12-31-2021 End: 10-14-2022 Alcohol intake Ex-drinker (finding) [facility] Start: 06-27-2013 End: 08-19-2022 Tobacco Comment dad smokes outside [facility] Start: 2000 Sex Assigned At Female C [facility] Start: 06-28-2022 End: 08-19-2022 Exposure to SARS-CoV-2 (event) Not sure [facility] Start: 2000 Sex Assigned At Not on file [facility] [employer] Work Phone: Start: 08-09-2022 End: 08-09-2022 Tobacco smoking status NHIS Unknown if ever smoked [facility] Work Phone: Start: 10-24-2020 Spouse/ Signif icant Other [facility] Work Phone: Start: 07-12-2022 [facility] Goals Date Patient Goal Desired [...] UE's Reflexes: 1+ bilat biceps and triceps [facility] 04-02-2023 Functional Status Rooming in [facility] 04-01-2023 Functional Status [facility] 04-01-2023 Functional Status Independent [facility] 04-01-2023 Functional Status [facility] 03-30-2023 Functional Status Home independently [facility] 03-07-2023 Functional Status Ambulating in room [facility] Mental Status Date Assessment Result Facility 03-07-2023 Mental Status Orientation Oriented x 4 [facility] Clinical Notes 07-09-2022 to 02-18-2024 Laboratory [...] 02/19/2024 1:39:46 AM Ordering Provider: KIRSTEN CISNEROS [facility] 10-15-2023 Evaluation + Plan note Diagnostic Tests PendingVitamin B12 Level 10/15/23Folate Level 10/15/23 Future Scheduled TestsGlucose Level 07/20/23Lipid Profile 07/20/23 [facility] 04-02-2023 Evaluation + Plan note Extrac barbara from: Title:Clinical Document Author:LONG DICKERSON MD Date:04/02/23 Subjective Comfortable with oral Motrin Lochia small. Baby is eating well per bottle Stayed overnight due to elevated bili levels in baby Objective Looks very well. Independent in room. Abdomen: Soft, uterus firm at U- 2 Extremities: Nontender with 1+ edema VITALS FqykysWavjRPXvwqhPSUjF2BAP1EkgkOf(kg) 04/02 00:3136.6--051293--90/20 78.0 04/01 16:2036.5--7916---- 04/01 08:4136.1--8114---- 03/31 23:3036.6--8416---- [...] q6h, 03/30/23 19:48:00 EDT Problems (4) Anxiety ([id number]) Body mass index 30+ - obesity (563597707) (233252497) UTI (urinary tract infection) ([id number]) ASSESSMENT/PLAN: PPD #2 after . Doing very well. Home today. Extracted from: Title:Clinical Document Author:LONG DICKERSON MD Date:03/31/23 Subjective Comfortable with oral Motrin Lochia small. Baby is nursing well. . Objective Looks very well. Independent in room. CVS: RRR Lungs: CTA B Abdomen: Soft, uterus firm at U- 1 Extremities: Nontender with 1+ edema VITALS LqjphkImzuXVYesixMHAmT5BZS9IrhwNv(kg) 03/31 08:3636.8--7816----03/30 78.0 03/31 05:4936--8216---- 03/31 02:00 RA 03/30 20:15----44999--CP 03/30 20:00----8018--RA 24 Hr Tmax: 36.8 at [...] q6h, 03/30/23 19:48:00 EDT Problems (4) Anxiety ([id number]) Body mass index 30+ - obesity (126607235) (791937900) UTI (urinary tract infection) ([id number]) ASSESSMENT/PLAN: PPD #1 after Outlet vacuum delivery [...] SYSTEMS: All negative ACTIVE PROBLEMS: (4) Anxiety ([id number]) Body mass index 30+ - obesity (031110019) (620099554) UTI (urinary tract infection) ([id number]) ALLERGIES: (1) CeleXA FAMILY HISTORY: No inheritable diseases. SOCIAL HISTORY: . Denies tobacco use Denies alcohol use. No illicit drug use. PHYSICAL EXAM: VITALS: VdbqagOfvsNMVyddfNSEbI0XTK2FzhfWs(kg) 03/30 10:5735.6--7518----03/30 78.0 03/30 10:0535.9 03/30 09:0536.1 [...] Pain, 03/30/23 7:19:00 EDT ondansetron, Start: 03/30/23 7:19:00 EDT, Dose = 4 mg, = 2 mL, IV Push, q4h, PRN, Nausea, 03/30/23 7:19:00 EDT oxytocin, Start: 03/30/23 7:19:00 EDT, Dose = 20 unit(s), = 2 mL, Intramuscular, Once, PRN, Other (see order comments), 03/30/23 7::00 EDT oxytocin 20 unit(s) + LR Premix Diluent 1,000 mL, Start: 03/30/23 7:19:00 EDT, Rate: 999 mL/hr, 03/30/23 7:19:00 EDT terbutaline, Start: 03/30/23 7:19:00 EDT, Dose = 0.25 mg, = 0.25 mL, Subcutaneous, AsDirected, PRN, Other (see order comments), 03/30/23 7:19:00 EDT tranexamic [...] Date:04/20/2023 02:00:00 PM Scheduled Provider:SUNIL GRAHAM MD Location:[facility] Appointment Type:[facility] 06-22-2023 Note day #2 progress [...] MARTINEZ NÚÑEZ MD on 04/01/2023 09:01 AM [facility]06-21-2023 Hospital Discharge instructions Patient Education [...] work with your health care provider or pci security consultant. If you are not : ?Avoid [...] about methods of control (contraception). Medicines Take utjf-ylf-ijskhsu and prescription medicines only as told by [...] 07/24/2008 Document Revised: 09/30/2018 Document Reviewed: 07/11/2018 [employer] Patient Education 2020 [employer]. 03/31/2023 12:34:52 7b- Depression and Blues (07/2020) [...] psychosis. Often, a screening tool called the Doucette Depression Scale is used to diagnose depression [...] music. Avoid alcohol. Ask for help with geothermal operations manager, cooking, grocery shopping, or running errands as needed. Do nottry to do everything. Talk to people close to you about how you are feeling. Get support from your partner, family members, and friends. Try to stay positive in how you think. Think about the things you are grateful for. Do not spend a lot of time alone. Only take zcux-ulj-klgxrva or prescription medicine as directed by your [...] not doing well or get worse. Resource: [facility] Patient Information 2015 [facility]. This information is not intended to replace advicegiven to you by your health care provider. Make sure you discuss any questions you have with your health care provider. Follow Up Care 03/30/2023 06:39:24 With:LONG DICKERSON Address: [address] [place] [address] [facility] [address] [phone] Business (1) When: Unknown [facility] 06-21-2023 Note Date of Service 03/31/23 Chief Complaint Subjective 22 yo [facility] Doing well. pain [...] 1 herlinda, Perineum, AsDirected benzocaine topical 20% [place] 1 spray(s), Perineum, q1h bisacodyl 10 mg [...] SUNIL GRAHAM MD on 03/31/2023 11:37 AM [facility]06-21-2023 Anesthesiology Consult note Patient: LUZ OLIVEIRA Age: 22 years Sex: Female : 2000 Associated Diagnoses: None Author: JENNIFER MERA COATING MACHINE OPERATOR HELPER-ORDINARY SEAMAN Assessment Postanesthesia assessment Vitals: Vital signs from [...] mmHg Diastolic Blood Pressure Non-Invasive 94 mmHg RI 03/30/2023 18:56 EDT Heart Rate Monitored 98 [...] by JENNIFER MERA on 03/31/2023 06:15 AM [facility]06-20-2023 Note Patient seen at 1730 [...] LONG DICKERSON MD on 03/30/2023 05:30 PM [facility]06-20-2023 Note Patient seen at 1730 [...] LONG DICKERSON MD on 03/30/2023 05:30 PM [facility]06-20-2023 Note Patient seen at 1730 [...] LONG DICKERSON MD on 03/30/2023 05:30 PM [facility]06-20-2023 Note CHIEF COMPLAINT: Membranes ruptured [...] SYSTEMS: All negative ACTIVE PROBLEMS: (4) Anxiety ([id number]) Body mass index 30+ - obesity (154310642) (735658427) UTI (urinary tract infection) ([id number]) ALLERGIES: (1) CeleXA FAMILY HISTORY: No inheritable diseases. SOCIAL HISTORY: . Denies tobacco use Denies alcohol use. No illicit drug use. PHYSICAL EXAM: VITALS: WxrnorPdrmYYEfrgcPDKzU4RWX2GcocYx(kg) 03/30 10:5735.6--7518----03/30 78.0 03/30 10:0535.9 03/30 09:0536.1 [...] LONG DICKERSON MD on 04/02/2023 11:08 AM [facility]06-20-2023 Anesthesiology Consult note Patient: LUZ OLIVEIRA Age: 22 years Sex: Female : 2000 Associated Diagnoses: None Author: JENNIFER MERA COATING MACHINE OPERATOR HELPER-ORDINARY SEAMAN Preoperative Information laboring Anesthesia history Patient's history: [...] Problem list: Medical Anxiety / SNOMED CT [id number] / Confirmed Body mass index 30+ - obesity / SNOMED CT 029098924 / Confirmed / SNOMED CT 634718665 / Confirmed UTI (urinary tract infection) / SNOMED CT [id number] / Confirmed, Active Problems (4) Anxiety Body mass index 30+ - obesity UTI (urinary tract infection) Histories Past Medical History: Active Anxiety ([id number]) UTI (urinary tract infection) ([id number]) Family History: Cancer Grandparent Comments: 10/22/2022 14:27 AUGIE Navarro Poonam Sanchez INSTRUCTOR DECORATING maternal, brain Cardiac pacemaker Mother Diabetes mellitus Mother Asthma Grandparent Breast cancer Grandparent Heart disease Mother HTN - Hypertension Father COPD Grandparent Diabetes Grandparent Procedure history: [place] tooth (03876756). Social History Social & Psychosocial Habits Alcohol [...] Signs(last 24 hrs) Last Charted Heart Rate Chfdvfqss50 bpm (MAR 30 10:57) Resp Rate 18 br/min (MAR 30 10:57) GMU974 mmHg (MAR 30 10:57) DBPL 59mmHg (MAR 30 10:57) BMI32.47 (MAR 30 07:49) Measurements from flowsheet : Measurements 03/30/2023 7:49 EDT Height 155.0 cm Admission Weight 78 kg [place] Body Weight 47.85 kg BSA Admission 1.77 [...] Height 155.0 cm Admission Weight 78 kg [place] Body Weight 47.85 kg BSA Admission 1.77 [...] Baby For Adoption No Surrogate No Discharge Physician P [facility] Participant No Safe Sleep Environment for [...] [facility] Emergency Contact Number Luis Daniel Oliveira [phone] Belongings At Bedside Cell phone, Water Registrar Personal Home Medications Received No home medications [...] FHR Interpretation Category: Category One 03/30/2023 7:14 [facility] History and Physical History and Physical . Assessment and Plan [place] [employer] Anesthesiologists (ASA) physical status classification: Class II. Anesthetic Preoperative Plan Anesthetic technique: Epidural. Informed consent: signed by patient. Digitally Signed by JENNIFER MERA on 03/30/2023 01:37 PM [facility]06-20-2023 Note Date of Service 03/30/23 Chief Complaint SROM History of Present Illness 22 yo G1@39.2 presents with large gush of fluid around 0600 and regular contractions. c/bobesity and recent growth US AC 7%le overall 15%le. Noted blood tinged fluid. Growth at 37 weeks for obesity showed borderline low fluid 5 cm, growth in 15%le. 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 history: Menarche: Menses: Menopause: n/a HRT: [...] of breast bx: no Colonoscopy: DXA: Family 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 history: Breast/colon/ovarian/uterine cancer: MGM w breast [...] order comments), 03/30/23::00 EDT miSOPROStol, Start: 03/30/23 7:19:00 EDT, Dose = 1,000 mcg, Rectal, Once, PRN, Other (see order comments), 03/30/23 7::00 EDT nalbuphine, Start: 03/30/23 7:19:00 EDT, Dose = 10 mg, = 1 mL, IV Push, q2h, PRN, Pain, 03/30/23::00 EDT ondansetron, Start: 03/30/23 7::00 EDT, Dose = 4 mg, = 2 mL, IV Push, q4h, PRN, Nausea, 03/30/23::00 EDT oxytocin, Start: 03/30/23 7:19:00 EDT, Dose = 20 unit(s), = 2 mL, Intramuscular, Once, PRN, Other (see order comments), 03/30/23:19:00 EDT oxytocin 20 unit(s) + LR Premix Diluent 1,000 mL, Start: 03/30/23 7:19:00 EDT, Rate: 999 mL/hr, 03/30/23:19:00 EDT terbutaline, [...] infection) Historical No qualifying data Procedure/Surgical History [place] tooth Medications Home Medications (5) Active AD [...] SUNIL GRAHAM MD on 03/30/2023 07:30 AM [facility]05-28-2023 Hospital Discharge instructions Patient Education 03/07/2023 20:26:05 7 - Labor and Delivery Outpatient Instructions (CUSTOM) CONWAY LABOR AND DELIVERY OUTPATIENT HOME-GOING INSTRUCTIONS _X_ [...] crackers, bananas, Jell-O, cooked carrots, applesauce. ___ [place] diet. Avoid caffeine, chocolate, alcohol, spiced/greasy foods. [...] the nearest Emergency Room for assistance. Form [id number] D: 09/18 Document Released: 09/27/2006 Document Revised: 09/15/2012 Document Reviewed: 09/27/2006 [facility] Patient Information 2012 [employer]. Follow Up Care 03/07/2023 19:56:20 With:WILTON AN, MARTINEZ Bautista Address: [address] [place] [address] [facility] [address] [phone] When:03/09/2023 [facility] 05-27-2023 Hospital Discharge instructions Patient Education 03/06/2023 18:27:44 7 - Labor and Delivery Outpatient Instructions (CUSTOM) CONWAY LABOR AND DELIVERY OUTPATIENT HOME-GOING INSTRUCTIONS _X_ [...] crackers, bananas, Jell-O, cooked carrots, applesauce. ___ [place] diet. Avoid caffeine, chocolate, alcohol, spiced/greasy foods. [...] the nearest Emergency Room for assistance. Form [id number] D: 09/18 Document Released: 09/27/2006 Document Revised: 09/15/2012 Document Reviewed: 09/27/2006 [employer] Patient Information 2012 [employer]. [facility] 04-18-2023 Hospital Discharge instructions Patient Education 01/26/2023 03:27:22 7 - Labor and Delivery Outpatient Instructions (CUSTOM) CONWAY LABOR AND DELIVERY OUTPATIENT HOME-GOING INSTRUCTIONS _X_ [...] crackers, bananas, Jell-O, cooked carrots, applesauce. ___ [place] diet. Avoid caffeine, chocolate, alcohol, spiced/greasy foods. [...] the nearest Emergency Room for assistance. Form [id number] D: 09/18 Document Released: 09/27/2006 Document Revised: 09/15/2012 Document Reviewed: 09/27/2006 [employer] Patient Information 2012 [employer]. Follow Up Care 01/26/2023 00:53:10 With:Follow up with primary care provider Address:Unknown When: Unknown [facility] 02-25-2023 Miscellaneous Notes* Telephone Encounter - Alex Garcia DO - 12/05/2022 5:08 PM EST Not a CFM patient [facility] Hospital Discharge instructions Patient Education [...] crackers, bananas, Jell-O, cooked carrots, applesauce. ___ [place] diet. Avoid caffeine, chocolate, alcohol, spiced/greasy foods. [...] the nearest Emergency Room for assistance. Form [id number] D: 09/18 Document Released: 09/27/2006 Document Revised: 09/15/2012 Document Reviewed: 09/27/2006 [employer] Patient Information 2012 [employer]. Follow Up Care 11/18/2022 11:50:05 With:SUNLI GRAHAM Address: [address] [place] [address] [facility] [address] [phone] Business (1) When: Unknown [facility] 01-19-2023 NoteHNO ID: [id number] Author: Tad Shaw DO Service: Obstetrics Author [...] with plan. Tad Shaw DO 4:21 AM 10/29/2022[facility]01-19-2023 NoteHNO ID: [id number] Author: Tad Shaw DO Service: Obstetrics Author [...] intractable nausea/vomiting. She was sent her from [facility] Main ED. In the ED, patient [...] Diagnosis Date Cognitive disorder IEP per the [facility] Psychologist [facility] Kidney [...] Oliveira DATE: October 29, 2022 TIME: 3:25 [facility]20[facility] NoteCOVID 19 RESULT: SARS-CoV-2 (Agent of COVID-19) Not Detected by RT-PCR or equivalent method. This test has been authorized by FDA under an Emergency Use Authorization (EUA). INFLUENZA A PCR: Negative for Influenza A by RT-PCR INFLUENZA B PCR: Negative for Influenza B by RT-PCR RSV PCR: Negative for Respiratory Syncytial Virus (RSV) by [facility] above:Performed By: #### [id number] ####[facility] LABORATORYCLIA [id number] [place] [address] [id number] Miscellaneous Notes* Quick Notes - Gretel Quintana [...] vaccine). Gretel Quintana MD documented [facility] Nurse Note* Aimee Desir Ma - 10/14/2022 11:01 AM EST Movement? Flutters Vaginal Bleeding: NO Vaginal fluid leakage of fluid: NO Contractions: no contractions documented in this encounterFair[facility] Center12-08-2022 NoteHNO ID: [id number] Author: Braulio Hollingsworth MD Service: ? Author Type: Physician Type: Progress Notes Filed: 09/17/2022 2:28 PM Note Text: Please refer to quick note and flow sheet. [facility]insAden[facility] NoteHNO ID: [id number] Author: Braulio Hollingsworth MD Service: ? 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 No current [...] or sooner prn. Braulio Hollingsworth [facility]11-09-2022 NoteHNO ID: [id number] Author: Braulio Hollingsworth MD Service: ? Author Type: Physician Type: Progress Notes Filed: 08/19/2022 5:28 PM Note Text: OB point of care ultrasound was performed. See imaging tab for details. 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 No current [...] prn. Braulio Hollingsworth MD documented in this encounterFair[facility]11-09-2022 Instructions* Patient Instructions* Braulio Hollingsworth MD - 08/19/2022 1:48 PM EST Please select the following link to access the [facility] Your Guide to a Healthy . [email or web address] documented in this encounterFairfield [facility] Center11-09-2022 History of Present illness Narrative* Braulio Hollingsworth MD - 08/19/2022 1:41 PM EST OB point of care ultrasound was performed. See imaging tab for details. Braulio Hollingsworth MD documented in this encounterFair[facility] Center11-09-2022 Nurse Note* Jennifer Stevneson MA - 08/19/2022 1:07 PM EST Movement? Too early Vaginal Bleeding: YES/MD NOTIFIED-Has had for 2 weeks Vaginal fluid leakage of fluid: NO Contractions: no contractions documented in this encounterFairfield [facility] Center11-04-2022 NoteHNO ID: [id number] Author: Zuhair Condon DO Service: Obstetrics Author [...] 14, 2022 TIME: 9:44 PM PAGER/CONTA[facility] #: [phone] NoteHNO ID: [id number] Author: Zuhair Condon DO Service: Obstetrics Author Type: Resident Type: Progress Notes Filed: 08/14/2022 9:56 PM Note Text: Attestation signed by Tanesha Hilton DO at 08/14/2022 10:12 PM I saw and evaluated the patient. Discussed with the resident and agree with resident's findings and plan as documented in the resident's note. 08/14/22174708/14/22 18408/14/22 1856 BP: 118/58 128/72 Pulse: (!) [...] Patient states that she originally went to [facility] on 08/09/22. She states that she [...] Diagnosis Date Cognitive disorder IEP per the [facility] Kidney [...] dyspnea GI: Denies abdominal pain, nausea, vomiting /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: Reports daily vaginal bleeding since Wednesday. [...] at time of discharge (more content not included)...[facility]10[facility] Miscellaneous Notes* Telephone Encounter - Nisa Murphy - 08/10/2022 9:31 AM EDT Patient was in ED for bleeding. Not currently bleeding has new OB appointment 08/19. Please advise if you would like to see her sooner. documented in [facility] Center[facility]22 Hospital Discharge instructions* Discharge Instructions* Melania Mitchell MD - 08/04/2022 1:22 PM EDT Please call your OB today to schedule a follow up visit in the next 2 days. * Attachments The following attachments cannot be sent through Care Everywhere. * Miscarriage: Threatened (Cymro) documented in this encounterSUM[facility] Work Phone: [phone]) 639-374209-29-2022 Miscellaneous Notes* Telephone Encounter - Verónica Alegre [...] 09, 2022 12:24 PM documented in this encounterFairfield Medical CenterEvaluation + Plan note Future Appointments Appointment Date:11/16/2022 02:00:00 PM Scheduled Provider:SUNIL GRAHAM MD Location:[facility] Appointment Type: OV OB Routine Follow Up [facility] Evaluation + Plan note Future Appointments Appointment Date:12/14/2022 02:15:00 PM Scheduled Provider:SUNIL GRAHAM MD Location[facility] Appointment Type: OV OB Routine Follow Up Appointment Date:12/23/2022 08:30:00 AM Scheduled Provider: Location:[facility] Appointment Type:US OB > 14 wks Future Scheduled Tests Radiology* US OB Limited/Transvaginal 01/11/23 * US OB > 14 weeks 12/23/22 [facility] Evaluation + Plan note Future [...] Antibody 12/14/22 Radiology* US OB Limited/Transvaginal 01/11/23 [facility] Evaluation + Plan note Future Appointments Appointment Date:01/25/2023 01:00:00 PM Scheduled Provider:SUNIL GRAHAM MD Location:[facility] Appointment Type: OV OB Routine Follow [...] Antibody 12/14/22 Radiology* US OB Limited/Transvaginal 01/11/23 [facility] Evaluation + Plan note Future Appointments Appointment Date:02/01/2023 01:15:00 PM Scheduled Provider:SUNIL GRAHAM MD Location:[facility] Appointment Type:[facility] OB Routine Follow Up Appointment Date:03/15/2023 02:00:00 PM Scheduled Provider: Location:[facility] Appointment Type:US OB > 14 wks [...] * US OB > 14 weeks 03/15/23 [facility] Evaluation + Plan note Future Appointments Appointment Date:03/09/2023 01:45:00 PM Scheduled Provider:LONG DICKERSON MD Location:[facility] Appointment Type:[facility] OB Routine Follow Up Appointment Date:03/15/2023 02:00:00 PM Scheduled Provider: Location:[facility] Appointment Type:US OB > 14 wks [...] * US OB > 14 weeks 03/15/23 [facility] Evaluation + Plan note Future Appointments Appointment Date:03/15/2023 02:00:00 PM Scheduled Provider: Location:[facility] Appointment Type:US OB > 14 wks Appointment Date:03/16/2023 02:30:00 PM Scheduled Provider:LONG DICKERSON MD Location:[facility] Appointment Type:[facility] OB Routine Follow Up Diagnostic Tests [...] * US OB > 14 weeks 03/15/23 [facility] Evaluation + Plan note Future Appointments Appointment Date:03/15/2023 02:00:00 PM Scheduled Provider: Location:[facility] Appointment Type:US OB > 14 wks Appointment Date:03/16/2023 02:30:00 PM Scheduled Provider:LONG DICKERSON MD Location:[facility] Appointment Type:[facility] OB Routine Follow Up Future Scheduled [...] * US OB > 14 weeks 03/15/23 [facility] Evaluation + Plan note Future Appointments Appointment Date:03/16/2023 02:30:00 PM Scheduled Provider:LONG DICKERSON MD Location:[facility] Appointment Type: OV OB Routine Follow [...] Urine 01/25/23 Radiology* US OB Limited/Transvaginal 01/11/23 [facility] Evaluation + Plan note Future Appointments Appointment Date:07/28/2024 08:30:00 AM Scheduled Provider:KIRSTEN CISNEROS Location:[facility] Appointment Type:PC Wellness Annual Future Scheduled Tests Laboratory* Glucose Level 07/20/23 * Lipid Profile 07/20/23 [facility] Evaluation + Plan note Future Appointments Appointment Date:08/25/2024 07:30:00 AM Scheduled Provider:KIRSTEN CISNEROS Location:[facility] Appointment Type:PC OV Future Scheduled Tests Radiology* CT Head or Brain w/o Contrast 07/28/24 * CT Spine Cervical w/o Contrast 07/28/24 [facility] Evapzation note* Diagnosis Threatened miscarriage in early - Primary Threatened , unspecified as to episode of care documented in this encounter [facility] Work Phone: Evaluation note* Diagnosis Onset Date Resolution Status Acute lumbar myofascial strain acute Blunt abdominal trauma acute Cervical strain, acute acute Chest wall contusion acute Concussion without loss of consciousness acute Lumbar radiculopathy, acute acute [facility] Work Phone: Evaluation note* Diagnosis Encounter for supervision of normal first in first trimester- Primary Supervision of normal first documented in this encounter [facility] note* Diagnosis with uncertain dates in first trimester- Primary documented in this encounter [facility] note* Diagnosis Encounter for supervision of normal first in second trimester- Primary Supervision of normal first Need for influenza vaccination Need for prophylactic vaccination and inoculation against influenza 15 weeks gestation of state, incidental [facility] encounter [facility] Narrative No data available for this section [facility] Hospital Discharge instructions Additional Instructions Follow-up with your CLIENT COORDINATOR. Return if you have worsening symptoms or worsening abdominal pain/fever.[facility] Work Phone: Hospital Discharge instructions No data available for this section [facility] Progress note No data available for this section [facility] Reason for referral (narrative)* Diagnostic Procedure Only (Routine) - Pending Review Specialty Diagnoses / Procedures Referred By Contac t Referred To Contact [facility] Diagnoses Encounter for supervision of normal first in first trimester Procedures NUCHAL TRANSLUCENCY WHI US NUCHAL TRANSLUCENCY 1ST GESTATION Braulio Hollingsworth MD [address] [facility] [address] [place] [address] [facility] [address] [place] [address] Referral ID Status Reason Start Date Expiration Date Visits Requested Visits Authorized [id number] Pending Review Auto-Generat ed Referral 08/19/2022 08/19/2023 [facility] Diagnostic Procedure Only (Routine) - Authorized Specialty Diagnoses / Procedures Referred By Contac t Referred To Contact [facility] Diagnoses Encounter for supervision of normal first in second trimester Procedures OBSTETRIC ULTRASOUND WHI US PREG UTERUS AFTER 1ST TRIMEST GESTATION Gretel Quintana MD [address] [address] [facility] [address] [place] [address] Referral ID Status Reason Start Date Expiration Date Visits Requested Visits Authorized [id number] Authorized Auto-Generat ed Referral 10/14/2022 10/14/2023 1 1 [facility] Summary Purpose Family History No Family [...] Will No August 09 2:12pm Power of Cuprous Chloride Helper No August 09, 2022 2:12pm Advance Directive Response Recorded Date/ Time Advance Directives No June 7:50am Living Will No August 09 1:12pm Power of Cuprous Chloride Helper No August 09, 2022 1:12pm Chief Complaint [...] section and content) DATE CREATED AUTHOR 09/19/2018 [facility] DATE CREATED AUTHOR AUTHOR'S ORGANIZ ATION 12/26/2018 [facility] DATE CREATED AUTHOR AUTHOR'S ORGANIZ ATION 04/29/2019 [facility] DATE CREATED AUTHOR AUTHOR'S ORGANIZ ATION 12/25/2019 [facility] DATE CREATED AUTHOR AUTHOR'S ORGANIZ ATION 03/17/2021 [facility] DATE CREATED AUTHOR AUTHOR'S ORGANIZ ATION 08/29/2021 [facility] DATE CREATED AUTHOR AUTHOR'S ORGANIZ ATION 08/05/2022 [facility] DATE CREATED AUTHOR AUTHOR'S ORGANIZ ATION 11/13/2022 [facility] DATE CREATED AUTHOR AUTHOR'S ORGANIZ ATION 11/14/2022 [facility] DATE CREATED AUTHOR AUTHOR'S ORGANIZ ATION 02/20/2024 [facility] DATE CREATED AUTHOR AUTHOR'S ORGANIZ ATION 08/20/2024 [facility] DATE CREATED AUTHOR AUTHOR'S ORGANIZ ATION 06/27/2025 [facility] DATE CREATED AUTHOR AUTHOR'S ORGANIZ ATION 08/23/2025 [facility] Source Comments (unrecognize d section and content) In the event this informatio n is protected by the Federal Confidentiality of Alcohol and Drug Abuse Patient Records regulations: The Federal rules restrict any use of the information to criminally investigate or prosecute any alcohol or drug abuse patient.[facility] CenterIn the event this information is protected by the Federal Confidentiality of Alcohol and Drug Abuse Patient Records regulations: The Federal rules restrict any use of the information to criminally investigate or prosecute any alcohol or drug abuse patient.[facility] CenterIn the event this information is protected by the Federal Confidentiality of Alcohol and Drug Abuse Patient Records regulations: The Federal rules restrict any use of the information to criminally investigate or prosecute any alcohol or drug abuse patient.[facility] CenterIn the event this information is protected by the Federal Confidentiality of Alcohol and Drug Abuse Patient Records regulations: The Federal rules restrict any use of the information to criminally investigate or prosecute any alcohol or drug abuse patient.[facility] CenterIn the event this information is protected by the Federal Confidentiality of Alcohol and Drug Abuse Patient Records regulations: The Federal rules restrict any use of the information to criminally investigate or prosecute any alcohol or drug abuse patient.[facility] CenterIn the event this information is protected by the Federal Confidentiality of Alcohol and Drug Abuse Patient Records regulations: The Federal rules restrict any use of the information to criminally investigate or prosecute any alcohol or drug abuse patient.[facility] CenterIn the event this information is protected by the Federal Confidentiality of Alcohol and Drug Abuse Patient Records regulations: The Federal rules restrict any use of the information to criminally investigate or prosecute any alcohol or drug abuse patient.[facility] Reason for Visit (unrecogniz ed [...] hours. 1135 (Not Given - Pr ovider: aRina Magana RN - Reason: Patient/family refused - [...] Member Role: Primary Care Physician Address: Address: [address] [place] [phone] [place] Care Team Related Persons Name: RASHMI MTZ Address: Home [address] [place] [phone] [place] Name: MARGARITO MTZ Address: Home [address] [place] [phone] [place] Name: MARGARITO MTZ Address: Home [address] [phone] [place] Name: MARGARITO MTZ Address: Home [address], [place] [phone] [place] Name: MARGARITO MTZ Address: Home [address] [place] [phone] [place] Name: MARGARITO MTZ Address: Home [address] [place] [phone] [place] Name: MARGARITO MTZ Address: Home [address] [place] [phone] [place] Name: MARGARITO MTZ Address: Home [address] [place] [phone] [place] Name: MARGARITO MTZ Address: Home [address] [place] [phone] [place] Care Team Personnel Name: MAXWELL GOMEZ MD Member Role: Primary Care Physician Address: Address: [address] [place], [place] [phone] Care Team Related Persons Name: RASHMI MTZ Address: Home [address] [place] [phone] [place] Name: MARGARITO MTZ Address: Home [address], [place] [phone] [place] Name: MARGARITO MTZ Address: Home [address] [phone] [place] Name: MARGARITO MTZ Address: Home [address] [place] [phone] [place] Name: MARGARITO MTZ Address: Home [address] [place] [phone] [place] Name: MARGARITO MTZ Address: Home [address] [place] [phone] [place] Name: MARGARITO MTZ Address: Home [address] [phone] [place] Name: MARGARITO MTZ Address: Home [address] [place] [phone] [place] Name: MARGARITO MTZ Address: Home [address] [place] [phone] Patient Care team informatio n (unrecognized section and content) Care Team Personnel Name: MAXWELL GOMEZ MD Member Role: Primary Care Physician Address: Address: [address] [place] [phone] [place] Care Team Related Persons Name: RASHMI MTZ Address: Home [address] [phone] [place] Name: MARGARITO MTZ Address: Home [address] [phone] [place] Name: MARGARITO MTZ Address: Home [address] [place] [phone] [place] Name: MARGARITO MTZ Address: Home [address] [place] [phone] [place] Name: MARGARITO MTZ Address: Home [address] [place] [phone] [place] Name: BIBI, MARGARITO Address: Home [address] [phone] [place] Name: MARGARITO MTZ Address: Home [address], [place] [phone] [place] Name: MARGARITO MTZ Address: Home [address], [place] [phone] [place] Name: MARGARITO MTZ Address: Home [address], [place] [phone] [place] Care Team Personnel Name: MAXWELL GOMEZ MD Member Role: Primary Care Physician Address: Address: [address] [place] [phone] [place] Care Team Related Persons Name: RASHMI MTZ Address: Home [address] [phone] [place] Name: MARGARITO MTZ Address: Home [address] [phone] [place] Name: MARGARITO MTZ Address: Home [address], [place] [phone] [place] Name: MARGARITO MTZ Address: Home [address], [place] [phone] [place] Name: MARGARITO MTZ Address: Home [address], [place] [phone] [place] Name: MARGARITO MTZ Address: Home [address], [place] [phone] [place] Name: MARGARITO MTZ Address: Home [address], [place] [phone] [place] Name: MARGARITO MTZ Address: Home [address], [place] [phone] [place] Name: MARGARITO MTZ Address: [address], [place] [phone] [place] Care Team Personnel Name: SUNIL GRAHAM MD Position: P4 CLIENT COORDINATOR Provider Member Role: Primary Care Physician Address: Address: [address] [place] [address]'s [facility] [place], [place] [address] Care Team Related Persons Name: RASHMI MTZ Address: Home [address] [phone] [place] Name: MARGARITO MTZ Address: Home [address], [place] [phone] [place] Name: MARGARITO MTZ Address: Home [address], [place] [phone] [place] Name: MARGARITO MTZ Address: Home [address], [place] [phone] [place] Name: ELVIA MTZRI Address: Home [address], [place] [phone] [place] Name: ELVIA MTZRI Address: Home [address], [place] [phone] [place] Name: ELVIA MTZRI Address: Home [address] [phone] [place] Name: ELVIA MTZRI Address: Home [address], [place] [phone] [place] Name: ELVIA MTZRI Address: [address] [phone] [place] Care Team Personnel Name: SUNIL GRAHAM MD Position: P4 CLIENT COORDINATOR Provider Member Role: Primary Care Physician Address: Address: [address] [place] [phone] Care Team Related Persons Name: RASHMI MTZ Address: Home [address] [phone] [place] Name: MARGARITO MTZ Address: Home [address] [phone] [place] Name: ELVIA MTZRI Address: [address] [phone] [place] Name: ELVIA MTZRI Address: Home [address], [place] [phone] [place] Name: ELVIA MTZRI Address: [address] [phone] [place] Name: MARGARITO MTZ Address: Home [address], [place] [phone] [place] Name: MARGARITO MTZ Address: Home [address] [phone] [place] Name: ELVIA MTZRI Address: [address], [place] [phone] [place] Name: ELVIA MZTRI Address: [address], [place] [phone] [place] Care Team Personnel Name: MARTINEZ NÚÑEZ MD Position: P4 CLIENT COORDINATOR Provider Member Role: Primary Care Physician Address: Address: [address] [place] [phone] Care Team Related Persons Name: RASHMI TMZ Address: Home [address] [phone] [place] Name: MARGARITO MTZ Address: Home [address], [place] [phone] [place] Name: MARGARITO MTZ Address: Home [address] [phone] [place] Name: MARGARITO MTZ Address: [address] [phone] [place] Name: MARGARITO MTZ Address: [address] [phone] [place] Name: MARGARITO MTZ Address: Home [address], [place] [phone] [place] Name: MARGARITO MTZ Address: Home [address], [place] [phone] [place] Name: MARGARITO MTZ Address: Home [address] [place] [phone] [place] Name: MARGARITO MTZ Address: Home [address] [phone] Care Team Personnel Name: MARTINEZ NÚÑEZ MD Position: P4 CLIENT COORDINATOR Provider Member Role: Primary Care Physician Address: Address: [address] [place] [phone] Care Team Related Persons Name: RASHMI MTZ Address: Home [address] [phone] [place] Name: MARGARITO MTZ Address: Home [address] [phone] [place] Name: MARGARITO MTZ Address: Home [address], [place] [phone] [place] Name: MARGARITO MTZ Address: Home [address], [place] [phone] [place] Name: MARGARITO MTZ Address: Home [address], [place] [phone] [place] Name: MARGARITO MTZ Address: Home [address], [place] [phone] [place] Name: MARGARITO MTZ Address: [address] [phone] [place] Name: MARGARITO MTZ Address: [address], [place] [phone] [place] Name: MARGARITO MTZ Address: [address], [place] [phone] [place] Care Team Personnel Name: MARTINEZ NÚÑEZ MD Position: P4 CLIENT COORDINATOR Provider Member Role: Primary Care Physician Address: Address: [address] [place] [address] Care Team Related Persons Name: RASHMI MTZ Address: Home [address] [phone] [place] Name: MARGARITO MTZ Address: Home [address], [place] [phone] [place] Name: MARGARITO MTZ Address: [address] [phone] [place] Name: MARGARITO MTZ Address: [address], [place] [phone] [place] Name: MARGARITO MTZ Address: [address], [place] [phone] [place] Name: MARGARITO MTZ Address: Home [address] [phone] [place] Name: MARGARITO MTZ Address: Home [address] [phone] [place] Name: MARGARITO MTZ Address: [address], [place] [phone] [place] Name: MARGARITO MTZ Address: [address] [phone] [place] Care Team Personnel Name: MARTINEZ NÚÑEZ MD Position: P4 CLIENT COORDINATOR Provider Member Role: Primary Care Physician Address: Address: [address] [place] [id number] Care Team Related Persons Name: RASHMI MTZ Address: Home [address] [phone] [place] Name: MARGARITO MTZ Address: [address], [place] [phone] [place] Name: MARGARITO MTZ Address: Home [address] [phone] [place] Name: MARGARITO MTZ Address: Home [address], [place] [phone] [place] Name: MARGARITO MTZ Address: Home [address] [phone] [place] Name: MARGARITO MTZ Address: Home [address] [phone] [place] Name: MARGARITO MTZ Address: [address], [place] [phone] [place] Name: MARGARITO MTZ Address: Home [address] [phone] [place] Name: MARGARITO MTZ Address: Home [address], [place] [phone] [place] Care Team Personnel Name: MARTINEZ NÚÑEZ MD Position: P4 CLIENT COORDINATOR Provider Member Role: Primary Care Physician Address: Address: [address] [place] [phone] [place] [address] Care Team Related Persons Name: RASHMI MTZ Address: Home [address] [phone] [place] Name: MARGARITO MTZ Address: Home [address] [phone] [place] Name: MARGARITO MTZ Address: Home [address], [place] [phone] [place] Name: MARGARITO MTZ Address: Home [address] [phone] [place] Name: MARGARITO MTZ Address: Home [address] [phone] [place] Name: MARGARITO MTZ Address: Home [address] [phone] [place] Name: MARGARITO MTZ Address: Home [address] [phone] [place] Name: MARGARITO MTZ Address: Home [address], [place] [phone] [place] Name: MARGARITO MTZ Address: [address] [phone] [place] Care Team Personnel Name: MARTINEZ NÚÑEZ MD Position: P4 CLIENT COORDINATOR Provider Member Role: Primary Care Physician Address: Address: [address] [place] [phone] Care Team Related Persons Name: AMANDA OLIVEIRA Address: Home [address] [place] [phone] [place] Address: Temporary [address] [place], [place] [phone] Name: RASHMI MTZ Address: Home [address] [phone] [place] Name: MARGARITO MTZ Address: Home [address] [phone] [place] Name: MARGARITO MTZ Address: Home [address], [place] [phone] [place] Name: MARGARITO MTZ Address: Home [address] [phone] [place] Name: MARGARITO MTZ Address: Home [address] [phone] [place] Name: MARGARITO MTZ Address: [address], [place] [phone] [place] Name: MARGARITO MTZ Address: [address] [phone] [place] Name: MARGARITO MTZ Address: [address] [phone] [place] Name: MARGARITO MTZ Address: [address], [place] [phone] [place] Care Team Personnel Name: MARTINEZ NÚÑEZ MD Position: P4 CLIENT COORDINATOR Provider Member Role: Primary Care Physician Address: Address: [address] [place] [address] [place], [place] [address] Care Team Related Persons Name: LUIS DANIEL OLIVEIRA Address: Home [address] [place], [place] [phone] Address: Temporary [address] [place], [place] [phone] Care Team Personnel Name: KIRSTEN CISNEROSCORPORATE LAW ASSISTANT Position: P4 Advanced Sales Development Associate Member Role: Primary Care Physician Address: Address: [address] [place] [address] Care Team Related Persons Name: LUIS DANIEL OLIVEIRA Address: Home [address] [place], [place] [phone] Address: Temporary [address] [place], [place] [phone] Care Team Personnel Name: KIRSTEN CISNEROS APRN-CORPORATE LAW ASSISTANT Position: P4 Advanced Sales Development Associate Member Role: Primary Care Physician Address: Address: [address] [place] [address]- Care Team Related Persons Name: LUIS DANIEL OLIVEIRA Address: Home [address] [place], [place] [phone] Address: Temporary [address] [place], [place] [phone] FOR RECORDS PERTAINING TO PATIENTS WHO ARE [...] BE BASED ON THE PRIMARY CLINICAL RECORDS. [employer] provides no warranty or guarantee [id number] the accuracy or completeness of information in this document.
[2025-09-19 16:37] LABS: Hematocrit 34.4 % (37-47); Hemoglobin 11.8 g/dL (12.0-15.0); Immature Granulocytes Count 0.100 X10^3/uL (0.0-0.0); Mean Corp Hgb Conc 34.3 g/dL (32-36); Mean Corpuscular Volume 93.0 fL (81-99); Mean Platelet Vol. 10.2 fl (6.2-12.0); NRBC Flagged by Analyzer 0 % (0-5); Platelet Count 177 K/mm3 (150-450); RBC Distribution Width CV 13.5 % (11.6-14.6); RBC Distribution Width SD 45.3 fl (35.1-43.9); Red Blood Count 3.70 M/mm3 (4.2-5.4); White Blood Count 9.4 K/mm3 (4.4-11.0)
[2025-09-19 16:58] LABS: Creatinine, Urine (random) 185.00 mg/dL (28.00-217.00); Protein, Urine (Random) 26.4 mg/dL (0.0-12.0); Protein:Creat Ratio 143 mg/g CRE (0-200); ROM Internal Control Test YES-OK TO RESULT pt. (Internal QC)
[2025-09-19 16:59] LABS: ROM Patient Test Negative (Negative); Record Kit Lot#, ROM+ K3607
[2025-09-19 17:18] LABS: AST(SGOT) 21 U/L (<=31); Alanine Aminotransfer ALT/SGPT 18 U/L (<=34); Albumin, Serum 3.8 g/dL (3.5-5.0); Alkaline Phosphatase 93 U/L (35-104); Anion Gap 14 (5-15); BUN 5 mg/dL (4-19); BUN/Creat Ratio 8.5 RATIO (10-20); Calcium,Total 8.9 mg/dL (7.6-11.0); Carbon Dioxide 21.5 mmol/L (21.0-32.0); Chloride 103 mmol/L (98-108); Globulin 2.9 g/dL (2.2-4.2); Glucose 82 mg/dL (70-99); Potassium 3.6 mmol/L (3.3-5.1)
== END | disposition home or self-care (01) ==
PROVIDERS: Visit Provider Student in an Organized Health Care Education/Training Program
DX: O26.899 Other specified pregnancy related conditions, unspecified trimester (principal); N89.8 Other specified noninflammatory disorders of vagina; R51.9 Headache, unspecified; Z3A.00 Weeks of gestation of pregnancy not specified; O99.891 Other specified diseases and conditions complicating pregnancy
CPT/HCPCS: 36415; 80053; 82570; 84112; 84156; 85025

== ENCOUNTER → 2025-10-05 | Outpatient (CLI) | payer BC, SELFPAY ==
--- OUTSIDE RECORDS SUMMARY | 2025-10-05 13:20 | XMS RPT_ITS | CCD ---
Author Organization [facility] Care Team Providers Care Aperture Mask Etcher Name Role Phone Lynsey [phone], Alex [phone] C onsulting Unavailable KWON DO, KAY K [...] No Primary Referring Provider Un available PARKER Pienda Attending Provider Unavailable Primary Care Provider Unavailabl [...] MARTINEZ NÚÑEZ MD Primary Care Physician MAST RECORD PRESS SUPERVISOR-NUMERICAL CONTROL ROUTER OPERATOR, KIRSTEN Primary Care Physician WILTON AN, MARTINEZ Bautista Primary Care Unavailable LIVIER AN, SUNIL Admitting Unavailable JAYLA AN, LONG Attending Unavailable WILTON AN, MARTINEZ Bautista Attending Unavailable WILTON AN, MARTINEZ Bautista Primary Care Unavailable WILTON AN, MARTINEZ Bautista Attending Unavailable WILTON AN, MARTINEZ Bautista Primary Care Unavailable WILTON AN, MARTINEZ Bautista Attending Unavailable WILTON AN, MARTINEZ Bautista Primary Care Unavailable [facility] Attending Unavailhieu NÚÑEZ MD, MARTINEZ Bautista Primary Care Unavailable MAST RECORD PRESS SUPERVISOR-NUMERICAL CONTROL ROUTER OPERATOR, KIRSTEN Attending Unavailabl e MAST RECORD PRESS SUPERVISOR-NUMERICAL CONTROL ROUTER OPERATOR, KIRSTEN Primary Care Unavailabl e LIVIER AN, SUNIL Attending Unavailable WILTON AN, MARTINEZ Bautista Primary Care Unavailable JAYLA AN, LONG Attending Unavailable WILTON AN, MARTINEZ Bautista Primary Care Unavailable JAYLA AN, LONG Attending Unavailable WILTON AN, MARTINEZ Bautista Primary Care Unavailable MAST RECORD PRESS SUPERVISOR-NUMERICAL CONTROL ROUTER OPERATOR, KIRSTEN Attending Unavailabl e MAST RECORD PRESS SUPERVISOR-NUMERICAL CONTROL ROUTER OPERATOR, KIRSTEN Primary Care Unavailabl e RAMA [...] Mcdonough Referring Unavailable Damari Mcdonough Attending Unavailable [place] HR ADMINISTRATOR, Remedios Attending Unavailable [place] HR ADMINISTRATOR, Remedios Referring Unavailable Care Physician, No Primary Primary Care Unava ilable Care Physician, No Primary Primary Care Unava ilable [place] HR ADMINISTRATOR, Remedios Referring Unavailable Jose HR ADMINISTRATOR, Remedios Attending Unavailable Care Physician, No Primary [...] No Primary Primary Care Unava ilable Jose HR ADMINISTRATOR, Remedios Attending Unavailable Care Physician, No Primary Primary Care Unava ilable Care Physician, No Primary Referring Unava ilable Care Physician, No Primary Primary Care Unava ilable Care Physician, No Primary Referring Unava ilable [place] HR ADMINISTRATOR, Remedios Attending Unavailable Care Physician, No Primary Primary Care Unava ilable Care Physician, No Primary Referring Unava ilable Damari Mcdonough Attending Unavailable Rama Stuart Referring Unavailabl e Rama Stuart Attending Unavailabl e Care Physician, No Primary Primary Care Unava ilable Antonio, Keven Consulting Unavailable [place] HR ADMINISTRATOR, Remedios Attending Unavailable Care Physician, No Primary Primary Care Unava ilable Care Physician, No Primary Primary Care Unava ilable Jose HR ADMINISTRATOR, Remedios Referring Unavailable [place] HR ADMINISTRATOR, Remedios Attending Unavailable Care Physician, No Primary Referring Unava ilable Rama Stuart Attending Unavailabl e Care Physician, No Primary Primary Care Unava ilable Care Physician, No Primary Primary Care Unava ilable Care Physician, No Primary Referring Unava ilable Jose HR ADMINISTRATOR, Remedios Attending Unavailable Care Physician, No Primary [...] HYDROBROMIDE] Drug Allergy 4 Other: See Comments [facility] Work Phone: (11 sources) Escitalopram; Translations: [ESCITALOPRAM] Drug Allergy 1 Other: See Comments [facility] Work Phone: (15 sources) Citalopram; Translations: [citalopram] Drug Allergy Suicidal ideation [facility] (1 source) Citalopram Drug Allergy 5 [facility] (1 source) Escitalopram Drug Allergy 5 [facility] Rep[facility] Medications Current Medications Medication Drug Class(es) Dates Sig (Normalized) Sig (Original) acetaminophen 500 mg oral tablet (1 source) Start: 03-31-2023 End: 04-28-2023 Tylenol Extra Strength 500 mg oral tablet Dose : 500 mg = 1 tab(s), Oral, q4h, X 14 day(s), # 30 tab(s), 1 Refill(s), 04/28/23 11:38:00 EDT, Pharmacy: [facility]/pharmacy #[id number], 155, cm, 03/30/23 7:49:00 EDT, Height Start Date: 03/31/23 Stop Date: 04/28/23 Status: Ordered benzocaine 200 mg/ml topical spray (1 source) Standardized Chemical Allergen Start: 03-31-2023 End: 04-14-2023 apply 1 dose topically four times daily Americaine 20% topical spray Dose = 1 herlinda, Topical, QID, X 14 day(s), # 1 EA, 0 Refill(s), Pharmacy: [facility]/pharmacy #[id number], 155, cm, 03/30/23 7:49:00 EDT, [...] 0 Refill(s), 02/25/24 8:31:00 AM EDT, Pharmacy: [facility] #[id number], 155, cm, 02/18/24 7:59:00 EDT, Height, kg, 02/18/24 7:59:00 EDT, Dosing Weight Start Date: 02/18/24 Stop Date: 02/25/24 Status: Ordered diclofenac sodium 75 mg delayed release oral tablet (1 source) Nonsteroidal Anti-inflammatory Drug Start: 02-18-2024 End: 03-03-2024 diclofenac sodium 75 mg oral delayed release tablet Dose : 75 mg = 1 tab(s), Oral, BID, # 28 tab(s), 0 Refill(s), Pharmacy: [facility] #[id number], 155, cm, 02/18/24 7:59:00 [...] tab(s), 0 Refill(s), 04/14/23 11:38:00 EDT, Pharmacy: [facility]/pharmacy #[id number], 155, cm, 03/30/23 7:49:00 EDT, Height Start Date: 03/31/23 Stop Date: 04/14/23 Status: Ordered magnesium oxide 400 mg oral tablet (3 sources) Start: 01-11-2023 End: 02-10-2023 magnesium oxide 400 mg oral tablet Dose : 400 mg = 1 tab(s), Oral, qHS, X 30 day(s), # 30 tab(s), 0 Refill(s), 02/10/23 15:17:00 EDT, Pharmacy: [facility]/pharmacy #[id number], 155, cm, 01/11/23 15:08:00 EDT, [...] tylenol, # 12 tab(s), 0 Refill(s), Pharmacy: [facility]/pharmacy #[id number], 155, cm, 01/11/23 15:08:00 EDT, [...] on above: Take 1 capsule by mo [facility] daily with breakfast. AD oral tablet (10 sources) Start: 01-26-2023 take 1 tablet by mouth once daily AD oral tablet Dose = 1 tab(s), Oral, Daily, # 30 tab(s), 0 Refill(s) Start Date: 01/26/23 Status: Ordered Aixhbugy-Zbs-Lw-Fa () 1 mg Tablet (2 sources) Start: 08-09-2022 take 1 tablet by mouth once daily Igdtfdxs-Swg-Yr-Fa () 1 mg Tablet Active 1 TABLET PO DAILY August 08, 2022 11:00pm Start: 08-09-2022 take 1 tablet by brandee th once daily Piqgwqdq-Lkf-Dx-Fa () 1 mg Tablet Active 1 TABLET [...] 30 tab(s), 11 Refill(s), Pharmacy: [facility]/pharmacy #[id number], Depression, major, recurrent, moderate, 154, cm, 07/20/23 7:49:00 EDT, Height, kg, 07/20/23 7:49:00 EDT, Dosing Weight Start Date: 08/16/23 Stop Date: 08/10/24 Status: Ordered Vitamin B2 100 mg oral tablet (8 sources) Start: 02-04-2023 take 1 tablet by mouth once daily Vitamin B2 100 mg oral tablet 1 tab(s), Oral, qDay, # 30 tab(s), 2 Refill(s), Pharmacy: [facility] STORE [id number], 155, cm, 02/01/23 13:50:00 EDT, Height, kg, 01/26/23 0:59:00 EDT, Dosing Weight Start Date: 02/04/23 Status: Ordered Start: 01-11-2023 Vitamin B2 100 mg oral tablet Dose : 100 mg = 1 tab(s), Oral, Daily, # 30 tab(s), 2 Refill(s), Pharmacy: [facility]/pharmacy #[id number], 155, cm, 01/11/23 15:08:00 EDT, [...] (FLONASE) 50 mcg/actuation nasal spray Use 1 Imbler in each nostril once daily. 1 Bottle 2 07/10/2014 08/19/2022 Discontinued Comment on above: Use 1 Imbler in each nostril once daily. loratadine 10 [...] (3 sources) Congenital vesicoureterorenal reflux; Translations: [Congenital ghndgn-svotkds-wmfsh reflux] Onset: 5 Chronic Genitourinary symptoms and [...] URC Urine Culture Mixed Gram Positive Organisms [place] Count 80,000-100,000 MIXC Mixed contaminants. Submit a new specimen if indicated. Normal [facility] Comment on above: Performed By: #### L 501.2450, L500.3400, L500.2500 #### [facility] Laboratory [address] [place], [address] CBC W/Diff, Automatedon 08-11 Absolute Lymph 1.25 X10 3/uL Normal 0.83-4.51 [facility] Comment on above: Performed By: #### L 509.8002, L501.0250, L100.0100, L3890.6006 ####[facility] [address] [place], [address] Absolute Neut 7.3 X10 3/uL Normal 2.0-7.7 [facility] Comment on above: Performed By: #### L 509.8002, L501.0250, L100.0100, L3890.6006 ####[facility] [address] [place], [address] Basophils/100 WBC (Bld) 0.1 % Normal 0-1 [facility] Comment on above: Performed By: #### L 509.8002, L501.0250, L100.0100, L3890.6006 ####[facility] [address] [place], [address] Eosinophils/100 WBC (Bld) 0.3 % Normal 0-5 [facility] Comment on above: Performed By: #### L 509.8002, L501.0250, L100.0100, L3890.6006 ####[facility] [address] [place], [address] Erythrocyte distribution width (RBC) [Ratio] 13.7 % Normal 11.6-14.6 [facility] Comment on above: Performed By: #### L 509.8002, L501.0250, L100.0100, L3890.6006 ####[facility] [address] [place], [address] Hematocrit (Bld) [Volume fraction] 33.6 % Low 37-47 [facility] Comment on above: Performed By: #### L 509.8002, L501.0250, L100.0100, L3890.6006 ####[facility] [address] [place], [address] Hemoglobin (Bld) [Mass/Vol] 11.6 g/dL Low 12.0-15.0 [facility] Comment on above: Performed By: #### L 509.8002, L501.0250, L100.0100, L3890.6006 ####[facility] [address] [place], [address] IG% 0.900 Normal 0.0-0.9 [facility] Comment on above: Result Comment: IG% - Immature Granulocytes (promyelocytes, myelocytes and metamyelocytes) > 1% indicates that a LEFT SHIFT is Present. Performed By: #### L 509.8002, L501.0250, L100.0100, L3890.6006 ####[facility] [address] [place], [address] Lymphocytes/100 WBC (Bld) 13.5 % Low 19-41 [facility] Comment on above: Performed By: #### L 509.8002, L501.0250, L100.0100, L3890.6006 ####[facility] [address] [place], [address] MCH (RBC) [Entitic mass] 32.5 pg High 27.0-32.0 [facility] Comment on above: Performed By: #### L 509.8002, L501.0250, L100.0100, L3890.6006 ####[facility] [address] [place], [address] MCHC (RBC) [Mass/Vol] 34.5 g/dL Normal 32-36 [facility] Comment on above: Performed By: #### L 509.8002, L501.0250, L100.0100, L3890.6006 ####[facility] [address] [place], [address] MCV (RBC) [Entitic vol] 94.1 fL Normal 81-99 [facility] Comment on above: Performed By: #### L 509.8002, L501.0250, L100.0100, L3890.6006 ####[facility] [address] [place], [address] Monocytes/100 WBC (Bld) 6.7 % Normal 0-10 [facility] Comment on above: Performed By: #### L 509.8002, L501.0250, L100.0100, L3890.6006 ####[facility] [address] [place], [address] Neutrophils/100 WBC (Bld) 78.5 % High 47-70 [facility] Comment on above: Performed By: #### L 509.8002, L501.0250, L100.0100, L3890.6006 ####[facility] [address] [place], [address] Nucleated RBC (Bld) [#/Vol] 0 10*3/uL Normal 0-5 [facility] Comment on above: Performed By: #### L 509.8002, L501.0250, L100.0100, L3890.6006 ####[facility] [address] [place], [address] Platelet mean volume (Bld) [Entitic vol] 9.9 fL Normal 6.2-12.0 [facility] Comment on above: Performed By: #### L 509.8002, L501.0250, L100.0100, L3890.6006 ####[facility] [address] [place], [address] Platelets (Bld) [#/Vol] 184 10*3/uL Normal 150-450 [facility] Comment on above: Performed By: #### L 509.8002, L501.0250, L100.0100, L3890.6006 ####[facility] [address] [place], [address] RBC (Bld) [#/Vol] 3.57 10*6/uL Low 4.2-5.4 [facility] Comment on above: Performed By: #### L 509.8002, L501.0250, L100.0100, L3890.6006 ####[facility] [address] [place], [address] RDW SD 46.3 fl High 35.1-43.9 [facility] Comment on above: Performed By: #### L 509.8002, L501.0250, L100.0100, L3890.6006 ####[facility] [address] [place], [address] WBC (Bld) [#/Vol] 9.3 10*3/uL Normal 4.4-11.0 [facility] Comment on above: Performed By: #### L 509.8002, L501.0250, L100.0100, L3890.6006 ####[facility] [address] [place], [address] Comprehensive Metabolic Prof mion 08-21-2025 Albumin [Mass/Vol] 3.8 g/dL Normal 3.5-5.0 [facility] Comment on above: Performed By: #### L 501.2450, L500.3400, L500.2500 #### [facility] Laboratory [address] [place], [address] Albumin/Globulin [Mass ratio] 1.5 {ratio} Normal 0.9-2.4 [facility] Comment on above: Performed By: #### L 501.2450, L500.3400, L500.2500 #### [facility] [address] [place], [address] ALK PHOS 73 U/L Normal 35-104 [facility] Comment on above: Performed By: #### L 501.2450, L500.3400, L500.2500 #### [facility] [address] [place], [address] ALT [Catalytic activity/Vol] 12 U/L Normal <=34 [facility] Comment on above: Performed By: #### L 501.2450, L500.3400, L500.2500 #### [facility] [address] [place], [address] AST [Catalytic activity/Vol] 19 U/L Normal <=31 [facility] Comment on above: Performed By: #### L 501.2450, L500.3400, L500.2500 #### [facility] [address] [place], [address] Bilirubin [Mass/Vol] 0.27 mg/dL Normal 0.00-1.30 [facility] Comment on above: Performed By: #### L 501.2450, L500.3400, L500.2500 #### [facility] [address] [place], [address] BUN/CRE 14.1 RATIO Normal 10-20 [facility] Comment on above: Performed By: #### L 501.2450, L500.3400, L500.2500 #### [facility] [address] [place], [address] Calcium [Mass/Vol] 9.2 mg/dL Normal 7.6-11.0 [facility] Comment on above: Performed By: #### L 501.2450, L500.3400, L500.2500 #### [facility] [address] [place], [address] Chloride [Moles/Vol] 103 mmol/L Normal 98-108 [facility] Comment on above: Performed By: #### L 501.2450, L500.3400, L500.2500 #### [facility] [address] [place], [address] CO2 [Moles/Vol] 18.2 mmol/L Low 21.0-32.0 [facility] Comment on above: Performed By: #### L 501.2450, L500.3400, L500.2500 #### [facility] [address] [place], [address] Creatinine [Mass/Vol] 0.56 mg/dL Low 0.70-1.20 [facility] Comment on above: Performed By: #### L 501.2450, L500.3400, L500.2500 #### [facility] [address] [place], [address] GAP 14 Normal 5-15 [facility] Comment on above: Performed By: #### L 501.2450, L500.3400, L500.2500 #### [facility] [address] [place], [address] GFR/1.73 sq M.predicted among non-blacks MDRD (S/P/Bld) [Vol rate/Area] 130 mL/min/{1.73_m2} Normal >60 [facility] Comment on above: Result Comment: mL/m in/1.73m2 CKD-EPI Creatinine Equation (2020) Performed By: #### L 501.2450, L500.3400, L500.2500 #### [facility] [address] [place], [address] Globulin (S) [Mass/Vol] 2.6 g/dL Normal 2.2-4.2 [facility] Comment on above: Performed By: #### L 501.2450, L500.3400, L500.2500 #### [facility] [address] [place], [address] Glucose [Mass/Vol] 99 mg/dL Normal 70-99 [facility] Comment on above: Performed By: #### L 501.2450, L500.3400, L500.2500 #### [facility] [address] [place], [address] Potassium [Moles/Vol] 3.3 mmol/L Normal 3.3-5.1 [facility] Comment on above: Performed By: #### L 501.2450, L500.3400, L500.2500 #### [facility] [address] [place], [address] Sodium [Moles/Vol] 135 mmol/L Normal 133-145 [facility] Comment on above: Performed By: #### L 501.2450, L500.3400, L500.2500 #### [facility] [address] [place], [address] T PROT 6.3 g/dL Normal 5.9-8.4 [facility] Comment on above: Performed By: #### L 501.2450, L500.3400, L500.2500 #### [facility] [address] [place], [address] Urea nitrogen [Mass/Vol] 8 mg/dL Normal 4-19 [facility] Comment on above: Performed By: #### L 501.2450, L500.3400, L500.2500 #### [facility] [address] [place], [address] Glucose Challenge Gest 1H 50 franchesca 08-21-2025 GLU GEST 50g 1H 101 mg/dL Normal 70-140 [facility] Comment on above: Performed By: #### L 509.8002, L501.0250, L100.0100, L3890.6006 ####[facility] [address] [place], [address] HIVon 08-21-2025 HIV Non-Reactive Normal Nonreactive [facility] Comment on above: Result Comment: Non- Reactive Reactive Repeatedly reactive samples must be confirmed according to CDC recommended confirmatory algorithms. The subresults for either HIVAG or AHIV can be used as an aid in the selection of the confirmation algorithm for reactive samples. Send out specimens with Reactive results to [facility] for confirmation. Order the HIV antibody detection and differentiation: lc#[id number] Performed By: #### L 509.8002, L501.0250, L100.0100, L3890.6006 ####[facility] [address] [facility] [address] Political Science Chair Office Visit Reporton 08-21-2025 Political Science Chair Office Visit Report [facility] [address], [address] [place] [address] OFFICE VISIT Date of Service: 08/21/25 MR#: [id number] Acct: [id number] Name: LUZ OLIVEIRA Rep #: [id number] : 2000 Provider: JARAD moctezuma Age/Sex: 24/F [place] [facility] [place]: Signed Intake Vital Signs 06/06/25 13:39 08/01/25 15:50 08/21/25 13:30 Height 5 ft 1 in 5 ft 1 in 5 ft 1 in Weight: 190 lb 7 oz BMI 35.9 BP 118/75 Intake Visit Reasons: 28wk4d ob/glucose Chronic Specialist Required: No Is patient in pain?: No Allergies escitalopram (From Lexapro) Adverse Reaction (Severe, Verified 08/21/25 13:48) SUICIDAL citalopram hydrobromide (From Celexa) Adverse Reaction (Verified 08/21/25 13:48) Other Medications ???Medication ???Instructions ???Recorded ???Confirmed ???Type cplttddn-iby-Jy-FA 1 mg 1 tab PO DAILY 08/09/22 [...] hypertension Obesity affecting 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 tqomhk-fzoblnd-uqgjf reflux Surgical History [place] teeth removed Family History Grandmother Breast cancer Brain cancer Grandfather CVA (cerebral vascular accident) Mother Diabetes Heart failure MRSA carrier History of recurrent miscarriages Father Hypertension Social History adopted: No household members: spouse and children housing: house number of children: 1 current occupation: [employer] current occupational exposures/hazards: No pets and [...] times per week duration: 15-30 minutes/day kalpana/methodist: Lutheran seatbelt use: always do you feel safe at home: Yes 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: : Saravanan - [employer]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 Normal [facility] Syphilis Antibodieson 2024 Syphilis Abs Non-Reactive Normal Nonreactive [facility] Comment on above: Performed By: #### L 509.8002, L501.0250, L100.0100, L3890.6006 ####[facility] [address] [facility] [place], [place], [address] OB Limited With Biometricson 08-15-2025 OB Limited With Biometrics [facility] Imaging Services [address] [place], [place] [address] OB Limited With Biometrics MR#: [id number] Acct: [id number] Name: LUZ OLIVEIRA Rep #: [id number] : 2000 F 24 From: Richard Gonzalez PCP: Care Physician,No Primary Status: REG CLI Study: OB Limited With Biometrics Date of Exam: 08/15 Exam# [id number] Ordering Dr: Geraldine Bradford PROCEDURE: OB LIMITED [...] days with KIMO of 11/10/2025. Reading Location: [facility] CC: Dr. Geraldine Bradford MD; No Primary Care Physician Operator Lights: Signed Normal [facility] CBC W/Diff, Automatedon 10-2 Absolute Lymph 1.37 X10 3/uL Normal 0.83-4.51 [facility] Comment on above: Performed By: #### L 100.0100, L500.4050 ####[facility] [address] [place], [address] Absolute Neut 7.9 X10 3/uL High 2.0-7.7 [facility] Comment on above: Performed By: #### L 100.0100, L500.4050 ####[facility] [address] [place], [address] Basophils/100 WBC (Bld) 0.1 % Normal 0-1 [facility] Comment on above: Performed By: #### L 100.0100, L500.4050 ####[facility] [address] [place], [address] Eosinophils/100 WBC (Bld) 0.4 % Normal 0-5 [facility] Comment on above: Performed By: #### L 100.0100, L500.4050 ####[facility] [address] [place], [address] Erythrocyte distribution width (RBC) [Ratio] 14.0 % Normal 11.6-14.6 [facility] Comment on above: Performed By: #### L 100.0100, L500.4050 ####[facility] [address] [place], [address] Hematocrit (Bld) [Volume fraction] 34.8 % Low 37-47 [facility] Comment on above: Performed By: #### L 100.0100, L500.4050 ####[facility] [address] [place], [address] Hemoglobin (Bld) [Mass/Vol] 12.1 g/dL Normal 12.0-15.0 [facility] Comment on above: Performed By: #### L 100.0100, L500.4050 ####[facility] [address] [place], [address] IG% 0.400 Normal 0.0-0.9 [facility] Comment on above: Result Comment: IG% - Immature Granulocytes (promyelocytes, myelocytes and metamyelocytes) > 1% indicates that a LEFT SHIFT is Present. Performed By: #### L 100.0100, L500.4050 ####[facility] [address] [place], [address] Lymphocytes/100 WBC (Bld) 14.0 % Low 19-41 [facility] Comment on above: Performed By: #### L 100.0100, L500.4050 ####[facility] [address] [place], [address] MCH (RBC) [Entitic mass] 32.4 pg High 27.0-32.0 [facility] Comment on above: Performed By: #### L 100.0100, L500.4050 ####[facility] [address] [place], [address] MCHC (RBC) [Mass/Vol] 34.8 g/dL Normal 32-36 [facility] Comment on above: Performed By: #### L 100.0100, L500.4050 ####[facility] [address] [place], [address] MCV (RBC) [Entitic vol] 93.3 fL Normal 81-99 [facility] Comment on above: Performed By: #### L 100.0100, L500.4050 ####[facility] [address] [place], [address] Monocytes/100 WBC (Bld) 5.1 % Normal 0-10 [facility] Comment on above: Performed By: #### L 100.0100, L500.4050 ####[facility] [address] [place], [address] Neutrophils/100 WBC (Bld) 80.0 % High 47-70 [facility] Comment on above: Performed By: #### L 100.0100, L500.4050 ####[facility] [address] [place], [address] Nucleated RBC (Bld) [#/Vol] 0 10*3/uL Normal 0-5 [facility] Comment on above: Performed By: #### L 100.0100, L500.4050 ####[facility] [address] [place], [address] Platelet mean volume (Bld) [Entitic vol] 9.9 fL Normal 6.2-12.0 [facility] Comment on above: Performed By: #### L 100.0100, L500.4050 ####[facility] [address] [place], [address] Platelets (Bld) [#/Vol] 191 10*3/uL Normal 150-450 [facility] Comment on above: Performed By: #### L 100.0100, L500.4050 ####[facility] [address] [place], [address] RBC (Bld) [#/Vol] 3.73 10*6/uL Low 4.2-5.4 [facility] Comment on above: Performed By: #### L 100.0100, L500.4050 ####[facility] [address] [place], [address] RDW SD 47.3 fl High 35.1-43.9 [facility] Comment on above: Performed By: #### L 100.0100, L500.4050 ####[facility] [address] [place], [address] WBC (Bld) [#/Vol] 9.8 10*3/uL Normal 4.4-11.0 [facility] Comment on above: Performed By: #### L 100.0100, L500.4050 ####[facility] [address] [place], [address] Comprehensive Metabolic [facility] 08-01-2025 Albumin [Mass/Vol] 4.1 g/dL Normal 3.5-5.0 [facility] Comment on above: Performed By: #### L 100.0100, L500.4050 ####[facility] [address] [place], [address] Albumin/Globulin [Mass ratio] 1.5 {ratio} Normal 0.9-2.4 [facility] Comment on above: Performed By: #### L 100.0100, L500.4050 ####[place] [facility] [address] [place], [address] ALK PHOS 74 U/L Normal 35-104 [facility] Comment on above: Performed By: #### L 100.0100, L500.4050 ####[facility] [address] [place], [address] ALT [Catalytic activity/Vol] 14 U/L Normal <=34 [facility] Comment on above: Performed By: #### L 100.0100, L500.4050 ####[facility] [address] [place], [address] AST [Catalytic activity/Vol] 18 U/L Normal <=31 [facility] Comment on above: Performed By: #### L 100.0100, L500.4050 ####[facility] [address] [place], [address] Bilirubin [Mass/Vol] 0.33 mg/dL Normal 0.00-1.30 [facility] Comment on above: Performed By: #### L 100.0100, L500.4050 ####[facility] [address] [place], [address] BUN/CRE 9.0 RATIO Low 10-20 [facility] Comment on above: Performed By: #### L 100.0100, L500.4050 ####[facility] [address] [place], [address] Calcium [Mass/Vol] 9.1 mg/dL Normal 7.6-11.0 [facility] Comment on above: Performed By: #### L 100.0100, L500.4050 ####[facility] [address] [place], [address] Chloride [Moles/Vol] 104 mmol/L Normal 98-108 [facility] Comment on above: Performed By: #### L 100.0100, L500.4050 ####[facility] [address] [place], [address] CO2 [Moles/Vol] 22.8 mmol/L Normal 21.0-32.0 [facility] Comment on above: Performed By: #### L 100.0100, L500.4050 ####[facility] [address] [place], [address] Creatinine [Mass/Vol] 0.55 mg/dL Low 0.70-1.20 [facility] Comment on above: Performed By: #### L 100.0100, L500.4050 ####[facility] [address] [place], [address] GAP 13 Normal 5-15 [facility] Comment on above: Performed By: #### L 100.0100, L500.4050 ####[facility] [address] [place], [address] GFR/1.73 sq M.predicted among non-blacks MDRD (S/P/Bld) [Vol rate/Area] 130 mL/min/{1.73_m2} Normal >60 [facility] Comment on above: Result Comment: mL/m in/1.73m2 CKD-EPI Creatinine Equation (2020) Performed By: #### L 100.0100, L500.4050 ####[facility] [address] [place], [address] Globulin (S) [Mass/Vol] 2.7 g/dL Normal 2.2-4.2 [facility] Comment on above: Performed By: #### L 100.0100, L500.4050 ####[facility] [address] [place], [address] Glucose [Mass/Vol] 105 mg/dL High 70-99 [facility] Comment on above: Performed By: #### L 100.0100, L500.4050 ####[facility] [address] [place], [address] Potassium [Moles/Vol] 3.9 mmol/L Normal 3.3-5.1 [facility] Comment on above: Performed By: #### L 100.0100, L500.4050 ####[facility] [address] [place], [address] Sodium [Moles/Vol] 139 mmol/L Normal 133-145 [facility] Comment on above: Performed By: #### L 100.0100, L500.4050 ####[facility] [address] [place], [address] T PROT 6.7 g/dL Normal 5.9-8.4 [facility] Comment on above: Performed By: #### L 100.0100, L500.4050 ####[facility] [address] [place], [address] Urea nitrogen [Mass/Vol] 5 mg/dL Normal 4-19 [facility] Comment on above: Performed By: #### L 100.0100, L500.4050 ####[facility] [address] [place], [address] Political Science Chair Office Visit Reporton 08-01-2025 Political Science Chair Office Visit Report [facility] [address], [address] [place] [address] OFFICE VISIT Date of Service: 08/01/25 MR#: [id number] Acct: [id number] Name: LUZ OLIVEIRA Rep #: [id number] : 2000 Provider: Dr. Geraldine storey MD Age/Sex: 24/F [place] [facility] [place]: Signed Intake Vital Signs 05/07/25 14:40 07/30/25 13:43 08/01/25 15:50 Height 5 ft 1 in 5 ft 1 in 5 ft 1 in Weight: 188 lb 4 oz BMI 35.5 BP 129/86 H Temp 98.7 F Intake Visit Reasons: 25wk ob Chronic Specialist Required: No Is patient in pain?: Yes (lower back pain, pelvic cramping) Allergies escitalopram (From Lexapro) Adverse Reaction (Severe, Verified 08/01/25 15:52) SUICIDAL citalopram hydrobromide (From Celexa) Adverse Reaction (Verified 08/01/25 15:52) Other Medications ???Medication ???Instructions ???Recorded ???Confirmed ???Type xdkiewos-vlo-Vj-FA 1 mg 1 tab PO DAILY 08/09/22 [...] hypertension Obesity affecting 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 axacbm-iyrhqmh-telwm reflux Surgical History [place] teeth removed Family History Grandmother Breast cancer Brain cancer Grandfather CVA (cerebral vascular accident) Mother Diabetes Heart failure MRSA carrier History of recurrent miscarriages Father Hypertension Social History adopted: No household members: spouse and children housing: house number of children: 1 current occupation: [employer] current occupational exposures/hazards: No pets and [...] times per week duration: 15-30 minutes/day kalpana/methodist: Lutheran seatbelt use: always do you feel safe at home: Yes 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 Normal [facility] Urine Cultureon 08-01-2025 URC Mixed Gram Positive Organisms [place] Count 50,000-80,000 MIXC Mixed contaminants. Submit a new specimen if indicated. Normal [facility] Comment on above: Performed By: #### M 100.2200 ####[facility] [address] [place], [address] (ROM) Rupture Of Membraneson 07-30-2025 ROM Negative Normal Negative [facility] Comment on above: Result Comment: Amni otic fluid not present indicates No Rupture of Membranes at time of specimen collection. Performed By: #### L 205.1000 ####[facility] [address] 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 ihcygb-hkbspfj-lszdn reflux Home Medications ???Medication ???Instructions ???Recorded ???Last Taken ???Type qdhtvggu-icz-Aj-FA 1 mg 1 tab PO DAILY 08/09/22 [...] of recurrent miscarriages Father Hypertension Surgical History [place] teeth removed Social History adopted: No household members: spouse and children housing: house number of children: 1 current occupation: [employer] current occupational exposures/hazards: No pets and [...] times per week duration: 15-30 minutes/day kalpana/methodist: Lutheran seatbelt use: always do you feel safe at home: Yes 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 Normal [facility] Political Science Chair Office Visit Reporton 07-30-2025 Political Science Chair Office Visit Report [facility] [address], [address] [place] [address] OFFICE VISIT Date of Service: 07/30/25 MR#: [id number] Acct: [id number] Name: LUZ OLIVEIRA Rep #: [id number] : 2000 Provider: JELENA Ordonez ams Age/Sex: 24/F Location: [facility] [place] Status: Signed Intake Vital Signs 07/30/25 01:24 07/30/25 13:43 Height 5 ft 1 in 5 ft 1 in Weight: 188 lb 5 oz BMI 35.6 BP 120/82 H Pulse 112 H Pulse Source Monitor Pulse Oximetry (%) 97 Oxygen Delivery Method room air Intake Visit Reasons: OB ER fu per KW Chief Complaint: 25wk OB ER FU Chronic Specialist Required: No Is patient in pain?: Yes (Back, Rib Cage) Pain scale (1-10): 7 Allergies escitalopram (From Lexapro) Adverse Reaction (Severe, Verified 07/30/25 13:41) SUICIDAL citalopram hydrobromide (From Celexa) Adverse Reaction (Verified 07/30/25 13:41) Other Medications ???Medication ???Instructions ???Recorded ???Confirmed ???Type upkvonvi-jcq-Bq-FA 1 mg 1 tab PO DAILY 08/09/22 [...] hypertension Obesity affecting 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 jnhwbh-yerdxpi-oiizu reflux Surgical History [place] teeth removed Family History Grandmother Breast cancer Brain cancer Grandfather CVA (cerebral vascular accident) Mother Diabetes Heart failure MRSA carrier History of recurrent miscarriages Father Hypertension Social History adopted: No household members: spouse and children housing: house number of children: 1 current occupation: [employer] current occupational exposures/hazards: No pets and [...] times per week duration: 15-30 minutes/day kalpana/methodist: Lutheran seatbelt use: always do you feel safe at home: Yes 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 Normal [facility] 12 Lead EKGon 07-29-2025 12 Lead EKG [facility] Cardiovascular Services [address] [place] [address] 12 Lead EKG 07/29/252108 MR#: [id number] Acct: [id number] Name: LUZ OLIVEIRA Rep #: [id number] : 2000 From: Keven Alvarez MD Attending Dr: Lupe Mead CNM Status: DEP CLI Ordering Dr: José Manuel Major MD Date: 07/29/25 Location: [facility] Sex: F C Admitted: Test Reason [...] Abnormal ECG Confirmed by ANTONIO AN, KEVEN ([id number]), assistant production editor BEAU SHIRELY ([id number]) on 07/30/2025 10:40:55 AM Referred By: Lupe Mead Confirmed By: KEVEN ALVAREZ MD 07/30/25 1040 Date Keven Alvarez MD CC: CNKailee Mead; Dr. José Manuel Major MD; No Primary Care Physician Signed Normal [facility] Basic Metabolic Profile (BMP )on 07-29-2025 BUN/CRE 11.3 RATIO Normal 07-30 [facility] Comment on above: Performed By: #### L 501.2450, L500.3400, L500.2500 #### [facility] Laboratory [address] [place], [address] Calcium [Mass/Vol] 9.2 mg/dL Normal 7.6-11.0 [facility] Comment on above: Performed By: #### L 501.2450, L500.3400, L500.2500 #### [facility] Laboratory [address] [place], [address] Chloride [Moles/Vol] 103 mmol/L Normal 98-108 [facility] Comment on above: Performed By: #### L 501.2450, L500.3400, L500.2500 #### [facility] Laboratory [address] [place], [address] CO2 [Moles/Vol] 22.0 mmol/L Normal 21.0-32.0 [facility] Comment on above: Performed By: #### L 501.2450, L500.3400, L500.2500 #### [facility] Laboratory [address] [place], [address] Creatinine [Mass/Vol] 0.60 mg/dL Low 0.70-1.20 [facility] Comment on above: Performed By: #### L 501.2450, L500.3400, L500.2500 #### [facility] Laboratory [address] [place], [address] ECRCL 142.90 ml/min Normal 50-250 [facility] Comment on above: Performed By: #### L 501.2450, L500.3400, L500.2500 #### [facility] Laboratory [address] [place], [address] GAP 13 Normal 5-15 [facility] Comment on above: Performed By: #### L 501.2450, L500.3400, L500.2500 #### [facility] Laboratory [address] [place], [address] GFR/1.73 sq M.predicted among non-blacks MDRD (S/P/Bld) [Vol rate/Area] 127 mL/min/{1.73_m2} Normal >60 [facility] Comment on above: Result Comment: mL/m in/1.73m2 CKD-EPI Creatinine Equation (2020) Performed By: #### L 501.2450, L500.3400, L500.2500 #### [facility] Laboratory [address] [place], [address] Glucose [Mass/Vol] 93 mg/dL Normal 70-99 [facility] Comment on above: Performed By: #### L 501.2450, L500.3400, L500.2500 #### [facility] Laboratory [address] [place], [address] Potassium [Moles/Vol] 3.4 mmol/L Normal 3.3-5.1 [facility] Comment on above: Performed By: #### L 501.2450, L500.3400, L500.2500 #### [facility] Laboratory [address] [place], [address] Sodium [Moles/Vol] 137 mmol/L Normal 133-145 [facility] Comment on above: Performed By: #### L 501.2450, L500.3400, L500.2500 #### [facility] Laboratory [address] [place], [address] Urea nitrogen [Mass/Vol] 7 mg/dL Normal 4-19 [facility] Comment on above: Performed By: #### L 501.2450, L500.3400, L500.2500 #### [facility] Laboratory [address] [place], [address] CBC W/Diff, Automatedon 10-1 Absolute Lymph 1.65 X10 3/uL Normal 0.83-4.51 [facility] Comment on above: Performed By: #### L 501.2450, L500.3400, L500.2500 #### [facility] Laboratory [address] [place], [address] Absolute Neut 7.6 X10 3/uL Normal 2.0-7.7 [facility] Comment on above: Performed By: #### L 501.2450, L500.3400, L500.2500 #### [facility] Laboratory [address] [place], [address] Basophils/100 WBC (Bld) 0.1 % Normal 0-1 [facility] Comment on above: Performed By: #### L 501.2450, L500.3400, L500.2500 #### [facility] Laboratory [address] [place], [address] Eosinophils/100 WBC (Bld) 0.3 % Normal 0-5 [facility] Comment on above: Performed By: #### L 501.2450, L500.3400, L500.2500 #### [facility] Laboratory [address] [place], [address] Erythrocyte distribution width (RBC) [Ratio] 13.9 % Normal 11.6-14.6 [facility] Comment on above: Performed By: #### L 501.2450, L500.3400, L500.2500 #### [facility] Laboratory [address] [place], [address] Hematocrit (Bld) [Volume fraction] 32.1 % Low 37-47 [facility] Comment on above: Performed By: #### L 501.2450, L500.3400, L500.2500 #### [facility] Laboratory [address] [place], [address] Hemoglobin (Bld) [Mass/Vol] 11.4 g/dL Low 12.0-15.0 [facility] Comment on above: Performed By: #### L 501.2450, L500.3400, L500.2500 #### [facility] Laboratory [address] [place], [address] IG% 0.700 Normal 0.0-0.9 [facility] Comment on above: Result Comment: IG% - Immature Granulocytes (promyelocytes, myelocytes and metamyelocytes) > 1% indicates that a LEFT SHIFT is Present. Performed By: #### L 501.2450, L500.3400, L500.2500 #### [facility] Laboratory [address] [place], [address] Lymphocytes/100 WBC (Bld) 16.5 % Low 19-41 [facility] Comment on above: Performed By: #### L 501.2450, L500.3400, L500.2500 #### [facility] Laboratory [address] [place], [address] MCH (RBC) [Entitic mass] 32.6 pg High 27.0-32.0 [facility] Comment on above: Performed By: #### L 501.2450, L500.3400, L500.2500 #### [facility] Laboratory [address] [place], [address] MCHC (RBC) [Mass/Vol] 35.5 g/dL Normal 32-36 [facility] Comment on above: Performed By: #### L 501.2450, L500.3400, L500.2500 #### [facility] Laboratory [address] [place], [address] MCV (RBC) [Entitic vol] 91.7 fL Normal 81-99 [facility] Comment on above: Performed By: #### L 501.2450, L500.3400, L500.2500 #### [facility] Laboratory [address] [place], [address] Monocytes/100 WBC (Bld) 6.3 % Normal 0-10 [facility] Comment on above: Performed By: #### L 501.2450, L500.3400, L500.2500 #### [facility] Laboratory [address] [place], [address] Neutrophils/100 WBC (Bld) 76.1 % High 47-70 [facility] Comment on above: Performed By: #### L 501.2450, L500.3400, L500.2500 #### [facility] Laboratory [address] [place], [address] Nucleated RBC (Bld) [#/Vol] 0 10*3/uL Normal 0-5 [facility] Comment on above: Performed By: #### L 501.2450, L500.3400, L500.2500 #### [facility] Laboratory [address] [place], [address] Platelet mean volume (Bld) [Entitic vol] 10.4 fL Normal 6.2-12.0 [facility] Comment on above: Performed By: #### L 501.2450, L500.3400, L500.2500 #### [facility] Laboratory [address] [place], [address] Platelets (Bld) [#/Vol] 204 10*3/uL Normal 150-450 [facility] Comment on above: Performed By: #### L 501.2450, L500.3400, L500.2500 #### [facility] Laboratory [address] [place], [address] RBC (Bld) [#/Vol] 3.50 10*6/uL Low 4.2-5.4 [facility] Comment on above: Performed By: #### L 501.2450, L500.3400, L500.2500 #### [facility] Laboratory [address] [place], [address] RDW SD 46.3 fl High 35.1-43.9 [facility] Comment on above: Performed By: #### L 501.2450, L500.3400, L500.2500 #### [facility] Laboratory [address] [place], [address] WBC (Bld) [#/Vol] 10.0 10*3/uL Normal 4.4-11.0 [facility] Comment on above: Performed By: #### L 501.2450, L500.3400, L500.2500 #### [facility] Laboratory [address] [place], [address] CTA Chest W/WO Contraston CTA Chest W/WO Contrast [facility] Imaging Services [address] [place] [address] CTA Chest W/WO Contrast MR#: [id number] Acct: [id number] Name: LUZ OLIVEIRA Rep #: [id number] : 2000 F 24 From: Johnny Brooks MD PCP: Care Physician,No Primary Status: REG ER Study: CTA Chest W/WO Contrast Date of Exam: 07/29/25 Exam# [id number] Ordering Dr: José Manuel Major MD PROCEDURE: [...] to evaluate for continued stability. Reading Location: [facility] CC: Dr. José Manuel Major MD; No Primary Care Physician Operator Lights: Signed Normal [facility] D-Dimer Quantitative (DVT/PE )on 07-29-2025 D-DIMER QUANT 0.68 FEU/ug/m Invalid Interpretation Code 0.27-0.49 [facility] Comment on above: Result Comment: D-Di rocky ELEVATED (>0.49): Additional studies and clinical assessments are indicated to conclude diagnosis of: Deep Vein Thrombosis (DVT) or Pulmonary Embolism (PE) Performed By: #### L 501.2450, L500.3400, L500.2500 #### [facility] [facility] [address] [place], [address] Emergency Department Summary on 07-29-2025 Emergency Department Summary [facility] Medical Records Department [address] [place] [address] Emergency Department Summary 07/29/25 MR#: [id number] Acct: [id number] Name: LUZ OLIVEIRA Rep #: [id number] : 2000 24 From: José Manuel Major [...] a miscarriage. Currently 25 weeks . Seeing [place] [facility]. 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 zynbiq-lmtfyqh-jegoh reflux Home Medications ???Medication ???Instructions ???Recorded ???Last Taken ???Type bspwbcvl-wow-Xy-FA 1 mg 1 tab PO DAILY 08/09/22 [...] of recurrent miscarriages Father Hypertension Surgical History [place] teeth removed Social History adopted: No household members: spouse and children housing: house number of children: 1 current occupation: [employer] current occupational exposures/hazards: No pets and [...] times per week duration: 15-30 minutes/day kalpana/methodist: Lutheran seatbelt use: always do you feel safe at home: Yes 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 [...] JVD. Chandni (more content not included)... Normal [facility] L501.4021on 07-29-2025 Trop T High Sen < 6 Normal <=14 [facility] Comment on above: Performed By: #### L 501.2450, L500.3400, L500.2500 #### [facility] [address] [place], [place], [id number] Lipaseon 07-29-2025 Lipase [Catalytic activity/Vol] 19 U/L Normal 13-75 [facility] Comment on above: Result Comment: Lisa paez note: LIPASE revised reference range effective 23. New Lipase methodology. Expected to produce lower values than the previous assay method. NEW Reference Range: 13 - 75 U/L Performed By: #### L 501.2450, L500.3400, L500.2500 #### [facility] [address] [place], [place], [id number] Liver Profileon 07-29-2025 Albumin [Mass/Vol] 3.7 g/dL Normal 3.5-5.0 [facility] Comment on above: Performed By: #### L 501.2450, L500.3400, L500.2500 #### [facility] [address] [place], [address] ALK PHOS 65 U/L Normal 35-104 [facility] Comment on above: Performed By: #### L 501.2450, L500.3400, L500.2500 #### [facility] [address] [place], [address] ALT [Catalytic activity/Vol] 12 U/L Normal <=34 [facility] Comment on above: Performed By: #### L 501.2450, L500.3400, L500.2500 #### [facility] [address] [place], [address] AST [Catalytic activity/Vol] 17 U/L Normal <=31 [facility] Comment on above: Performed By: #### L 501.2450, L500.3400, L500.2500 #### [facility] [address] [place], [address] Bilirubin [Mass/Vol] 0.26 mg/dL Normal 0.00-1.30 [facility] Comment on above: Performed By: #### L 501.2450, L500.3400, L500.2500 #### [facility] [address] [place], [address] Bilirubin.direct [Mass/Vol] 0.11 mg/dL Normal 0.00-0.30 [facility] Comment on above: Performed By: #### L 501.2450, L500.3400, L500.2500 #### [facility] [address] [place], [address] Globulin (S) [Mass/Vol] 2.6 g/dL Normal 2.2-4.2 [facility] Comment on above: Performed By: #### L 501.2450, L500.3400, L500.2500 #### [facility] [address] [place], [address] T PROT 6.3 g/dL Normal 5.9-8.4 [facility] Comment on above: Performed By: #### L 501.2450, L500.3400, L500.2500 #### [facility] [address] [place], [address] Troponin T HS 2 HRon 025 Trop T High Sen Normal <=14 [facility] Comment on above: Result Comment: OKAY TO CANCEL PER ZAK RODRIGUEZ Performed By: #### L 501.2450, L500.3400, L500.2500 #### [facility] [address] [place], [address] Urinalysis, Completeon 07-29 EPI,SQUAMOUS 0-5 SEEN Normal 5-10 [facility] Comment on above: Order Comment: COLLE CTOR TO SPECIFY Performed By: #### L 501.2450, L500.3400, L500.2500 #### [facility] [address] [place], [address] RBC 5-10 SEEN Normal 0-5 [facility] Comment on above: Order Comment: COLLE CTOR TO SPECIFY Performed By: #### L 501.2450, L500.3400, L500.2500 #### [facility] [address] [place], [address] BACTERIA 3+ /hpf Normal None Seen [facility] Comment on above: Order Comment: COLLE CTOR TO SPECIFY Performed By: #### L 501.2450, L500.3400, L500.2500 #### [facility] [address] [place], [address] Mucus Ql (Urine sed) 0 SEEN Normal [facility] Comment on above: Order Comment: COLLE CTOR TO SPECIFY Performed By: #### L 501.2450, L500.3400, L500.2500 #### [facility] [address] [place], [address] WBC 0 SEEN Normal 0-5 [facility] Comment on above: Order Comment: COLLE CTOR TO SPECIFY Performed By: #### L 501.2450, L500.3400, L500.2500 #### [facility] [address] [place], [address] CBC W/Diff, Automatedon 06-12 Absolute Lymph 1.09 X10 3/uL Normal 0.83-4.51 [facility] Comment on above: Performed By: #### L 501.2450, L500.3400, L500.2500 #### [facility] [address] [place], [address] Absolute Neut 6.9 X10 3/uL Normal 2.0-7.7 [facility] Comment on above: Performed By: #### L 501.2450, L500.3400, L500.2500 #### [facility] [address] [place], [address] Basophils/100 WBC (Bld) 0.1 % Normal 0-1 [facility] Comment on above: Performed By: #### L 501.2450, L500.3400, L500.2500 #### [facility] [address] [place], [address] Eosinophils/100 WBC (Bld) 0.2 % Normal 0-5 [facility] Comment on above: Performed By: #### L 501.2450, L500.3400, L500.2500 #### [facility] [address] [place], [address] Erythrocyte distribution width (RBC) [Ratio] 14.1 % Normal 11.6-14.6 [facility] Comment on above: Performed By: #### L 501.2450, L500.3400, L500.2500 #### [facility] [address] [place], [address] Hematocrit (Bld) [Volume fraction] 31.9 % Low 37-47 [facility] Comment on above: Performed By: #### L 501.2450, L500.3400, L500.2500 #### [facility] [address] [place], [address] Hemoglobin (Bld) [Mass/Vol] 11.6 g/dL Low 12.0-15.0 [facility] Comment on above: Performed By: #### L 501.2450, L500.3400, L500.2500 #### [facility] [address] [place], [address] IG% 0.600 Normal 0.0-0.9 [facility] Comment on above: Result Comment: IG% - Immature Granulocytes (promyelocytes, myelocytes and metamyelocytes) > 1% indicates that a LEFT SHIFT is Present. Performed By: #### L 501.2450, L500.3400, L500.2500 #### [facility] [address] [place], [address] Lymphocytes/100 WBC (Bld) 12.8 % Low 19-41 [facility] Comment on above: Performed By: #### L 501.2450, L500.3400, L500.2500 #### [facility] [address] [place], [address] MCH (RBC) [Entitic mass] 32.6 pg High 27.0-32.0 [facility] Comment on above: Performed By: #### L 501.2450, L500.3400, L500.2500 #### [facility] [address] [place], [address] MCHC (RBC) [Mass/Vol] 36.4 g/dL High 32-36 [facility] Comment on above: Performed By: #### L 501.2450, L500.3400, L500.2500 #### [facility] [address] [place], [address] MCV (RBC) [Entitic vol] 89.6 fL Normal 81-99 [facility] Comment on above: Performed By: #### L 501.2450, L500.3400, L500.2500 #### [facility] [address] [place], [address] Monocytes/100 WBC (Bld) 4.7 % Normal 0-10 [facility] Comment on above: Performed By: #### L 501.2450, L500.3400, L500.2500 #### [facility] [address] [place], [address] Neutrophils/100 WBC (Bld) 81.6 % High 47-70 [facility] Comment on above: Performed By: #### L 501.2450, L500.3400, L500.2500 #### [facility] [address] [place], [address] Nucleated RBC (Bld) [#/Vol] 0 10*3/uL Normal 0-5 [facility] Comment on above: Performed By: #### L 501.2450, L500.3400, L500.2500 #### [facility] [address] [place], [address] Platelet mean volume (Bld) [Entitic vol] 10.1 fL Normal 6.2-12.0 [facility] Comment on above: Performed By: #### L 501.2450, L500.3400, L500.2500 #### [facility] [address] [place], [address] Platelets (Bld) [#/Vol] 180 10*3/uL Normal 150-450 [facility] Comment on above: Performed By: #### L 501.2450, L500.3400, L500.2500 #### [facility] [address] [place], [address] RBC (Bld) [#/Vol] 3.56 10*6/uL Low 4.2-5.4 [facility] Comment on above: Performed By: #### L 501.2450, L500.3400, L500.2500 #### [facility] [address] [place], [address] RDW SD 45.9 fl High 35.1-43.9 [facility] Comment on above: Performed By: #### L 501.2450, L500.3400, L500.2500 #### [facility] [address] [place], [address] WBC (Bld) [#/Vol] 8.5 10*3/uL Normal 4.4-11.0 [facility] Comment on above: Performed By: #### L 501.2450, L500.3400, L500.2500 #### [facility] [address] [place], [address] Comprehensive Metabolic Prof [facility] 07-09-2025 Albumin [Mass/Vol] 3.9 g/dL Normal 3.5-5.0 [facility] Comment on above: Performed By: #### L 501.2450, L500.3400, L500.2500 #### [facility] [address] [place], [address] Albumin/Globulin [Mass ratio] 1.4 {ratio} Normal 0.9-2.4 [facility] Comment on above: Performed By: #### L 501.2450, L500.3400, L500.2500 #### [facility] [address] [place], [address] ALK PHOS 65 U/L Normal 35-104 [facility] Comment on above: Performed By: #### L 501.2450, L500.3400, L500.2500 #### [facility] [address] [place], [address] ALT [Catalytic activity/Vol] 20 U/L Normal <=34 [facility] Comment on above: Performed By: #### L 501.2450, L500.3400, L500.2500 #### [facility] [address] [place], [address] AST [Catalytic activity/Vol] 23 U/L Normal <=31 [facility] Comment on above: Performed By: #### L 501.2450, L500.3400, L500.2500 #### [facility] [address] [place], [address] Bilirubin [Mass/Vol] 0.35 mg/dL Normal 0.00-1.30 [facility] Comment on above: Performed By: #### L 501.2450, L500.3400, L500.2500 #### [facility] [address] [place], [address] BUN/CRE 10.5 RATIO Normal 10-20 [facility] Comment on above: Performed By: #### L 501.2450, L500.3400, L500.2500 #### [facility] [address] [place], [address] Calcium [Mass/Vol] 9.1 mg/dL Normal 7.6-11.0 [facility] Comment on above: Performed By: #### L 501.2450, L500.3400, L500.2500 #### [facility] [address] [place], [address] Chloride [Moles/Vol] 105 mmol/L Normal 98-108 [facility] Comment on above: Performed By: #### L 501.2450, L500.3400, L500.2500 #### [facility] [address] [place], [address] CO2 [Moles/Vol] 18.7 mmol/L Low 21.0-32.0 [facility] Comment on above: Performed By: #### L 501.2450, L500.3400, L500.2500 #### [facility] [address] [place], [address] Creatinine [Mass/Vol] 0.60 mg/dL Low 0.70-1.20 [facility] Comment on above: Performed By: #### L 501.2450, L500.3400, L500.2500 #### [facility] [address] [place], [address] GAP 14 Normal 5-15 [facility] Comment on above: Performed By: #### L 501.2450, L500.3400, L500.2500 #### [facility] [address] [place], [address] GFR/1.73 sq M.predicted among non-blacks MDRD (S/P/Bld) [Vol rate/Area] 128 mL/min/{1.73_m2} Normal >60 [facility] Comment on above: Result Comment: mL/m in/1.73m2 CKD-EPI Creatinine Equation (2020) Performed By: #### L 501.2450, L500.3400, L500.2500 #### [facility] [address] [place], [address] Globulin (S) [Mass/Vol] 2.8 g/dL Normal 2.2-4.2 [facility] Comment on above: Performed By: #### L 501.2450, L500.3400, L500.2500 #### [facility] [address] [place], [address] Glucose [Mass/Vol] 91 mg/dL Normal 70-99 [facility] Comment on above: Performed By: #### L 501.2450, L500.3400, L500.2500 #### [facility] [address] [place], [address] Potassium [Moles/Vol] 3.7 mmol/L Normal 3.3-5.1 [facility] Comment on above: Performed By: #### L 501.2450, L500.3400, L500.2500 #### [facility] [address] [place], [address] Sodium [Moles/Vol] 137 mmol/L Normal 133-145 [facility] Comment on above: Performed By: #### L 501.2450, L500.3400, L500.2500 #### [facility] [address] [place], [address] T PROT 6.7 g/dL Normal 5.9-8.4 [facility] Comment on above: Performed By: #### L 501.2450, L500.3400, L500.2500 #### [facility] [address] [place], [address] Urea nitrogen [Mass/Vol] 6 mg/dL Normal 4-19 [facility] Comment on above: Performed By: #### L 501.2450, L500.3400, L500.2500 #### [facility] [address] [place], [address] Political Science Chair Office Visit Reporton 07-09-2025 Political Science Chair Office Visit Report [facility] [address], [address] [place] [address] OFFICE VISIT Date of Service: 07/09/25 MR#: [id number] Acct: [id number] Name: LUZ OLIVEIRA Rep #: [id number] : 2000 Provider: Dr. Geraldine storey MD Age/Sex: 24/F [place] [facility] [place]: Signed Intake Vital Signs 07/03/25 15:35 07/09/25 09:29 07/09/25 09:30 Height 5 ft 1 in 5 ft 1 in 5 ft 1 in Weight: 185 lb 4 oz 184 lb 4 oz BMI 34.9 34.8 BP 109/74 107/76 Intake Visit Reasons: DISCUSS CONCERNS * OK PER Chronic Specialist Required: No Is patient in pain?: No Allergies escitalopram (From Lexapro) Adverse Reaction (Severe, Verified 07/09/25 09:30) SUICIDAL citalopram hydrobromide (From Celexa) Adverse Reaction (Verified 07/09/25 09:30) Other Medications ???Medication ???Instructions ???Recorded ???Confirmed ???Type udlyusrz-str-Bb-FA 1 mg 1 tab PO DAILY 08/09/22 [...] hypertension Obesity affecting 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 tzeoge-xxtskca-roica reflux Surgical History [place] teeth removed Family History Grandmother Breast cancer Brain cancer Grandfather CVA (cerebral vascular accident) Mother Diabetes Heart failure MRSA carrier History of recurrent miscarriages Father Hypertension Social History adopted: No household members: spouse and children housing: house number of children: 1 current occupation: [employer] current occupational exposures/hazards: No pets and [...] times per week duration: 15-30 minutes/day kalpana/methodist: Lutheran seatbelt use: always do you feel safe at home: Yes 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 Normal [facility] Protein+Creatinine Ratio,Uri neon 07-09-2025 PROT:CRE RATIO 283 mg/g CRE High 0-200 [facility] Comment on above: Performed By: #### L 501.0900 #### [facility] [address] [place], [address] Protein (U) [Mass/Vol] 73.9 mg/dL High 0.0-12.0 [facility] Comment on above: Performed By: #### L 501.0900 #### [facility] [address] [place], [address] UR CREAT 261.00 mg/dL High 28.00-217.00 [facility] Comment on above: Performed By: #### L 501.0900 #### [facility] [address] [place], [address] Wound Cultureon 07-06-2025 WC Lesion of abdomen Possible skin contamination, further Identification and sensitivity will be performed only by physician's request. Coag Negative Staph Amount Growth 2+ Normal [facility] Comment on above: Performed By: #### L 501.2450, L500.3400, L500.2500 #### [facility] [address] [place], [address] Gram Stainon 07-04-2025 GS Lesion of abdomen Gram Stain 1+ White Blood Cells No organisms seen Normal [facility] Comment on above: Performed By: #### L 501.2450, L500.3400, L500.2500 #### [facility] [address] [place], [address] Political Science Chair Office Visit Reporton 07-03-2025 Political Science Chair Office Visit Report [facility]'s [address], [address] [place] [address] OFFICE VISIT Date of Service: 07/03/25 MR#: [id number] Acct: [id number] Name: LUZ OLIVEIRA Rep #: [id number] : 2000 Provider: JARAD moctezuma Age/Sex: 24/F [place] [facility] [place]: Signed Intake Vital Signs 05/07/25 14:40 06/06/25 13:39 07/03/25 15:35 Height 5 ft 1 in 5 ft 1 in 5 ft 1 in Weight: 185 lb 4 oz BMI 34.9 BP 109/74 Intake Visit Reasons: 21wk ob Chief Complaint: 21 Week OB Chronic Specialist Required: No Is patient in pain?: No Allergies escitalopram (From Lexapro) Adverse Reaction (Severe, Verified 07/03/25 15:38) SUICIDAL citalopram hydrobromide (From Celexa) Adverse Reaction (Verified 07/03/25 15:38) Other Medications ???Medication ???Instructions ???Recorded ???Confirmed ???Type fesqiocd-ryj-Eb-FA 1 mg 1 tab PO DAILY 08/09/22 [...] hypertension Obesity affecting 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 syoupv-ilpnvda-qouaf reflux Surgical History [place] teeth removed Family History Grandmother Breast cancer Brain cancer Grandfather CVA (cerebral vascular accident) Mother Diabetes Heart failure MRSA carrier History of recurrent miscarriages Father Hypertension Social History adopted: No household members: spouse and children housing: house number of children: 1 current occupation: [employer] current occupational exposures/hazards: No pets and [...] times per week duration: 15-30 minutes/day kalpana/methodist: Lutheran seatbelt use: always do you feel safe at home: Yes 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 Date Name GA/Weeks Outcome Route Bth Weight Gen Labor Lgth Anesthesia Del Locatn Provider FOB 10/11/18 Chemical 4 spontaneous 03/30/23 Amanda 39 live - full term vacuum 6lbs 1oz Female epidural [facility] Delivery Date: 03/30/23 Last Updated by: [...] ??-???- 9w (more content not included)... Normal [facility] Progress Noteon 06-20-2025 Tax Director Authentication Interface Message Text [facility] MATERNAL- MEDICINE CONSULT Referring/Requesting Provider: Rama [...] disorder Chronic kidney disease kidney stones Congenital xvffij-zllcqeq-ahhpb reflux Depression Elevated liver enzymes Headache in [...] repeat LFTs are elevated, refer to local certified shorthand reporter for further evaluation. Frequent UTI 06/20/2025 - [...] hemorrhage, stillbirth, anomalies, delivery and postcesarean complications. [place] of medicine recommend weight gain in : [...] findings. Ame (more content not included)... Normal [facility] Political Science Chair Office Visit Reporton 06-06-2025 Political Science Chair Office Visit Report [facility] [address], [address] [place] [address] OFFICE VISIT Date of Service: 06/06/25 MR#: [id number] Acct: [id number] Name: LUZ OLIVEIRA Rep #: [id number] : 2000 Provider: Dr. Rama Trammell DO Age/Sex: 24/F [place] [facility] [place]: Signed Intake Vital Signs 04/09/25 10:40 05/30/25 09:28 06/06/25 13:37 06/06/25 13:39 Height 5 ft 1 in 5 ft 1 in 5 ft 1 in 5 ft 1 in Weight: 183 lb 5 oz BMI 34.6 BP 112/68 Intake Visit Reasons: 17 wk ob Chronic Specialist Required: No Is patient in pain?: No Allergies escitalopram (From Lexapro) Adverse Reaction (Severe, Verified 06/06/25 13:36) SUICIDAL citalopram hydrobromide (From Celexa) Adverse Reaction (Verified 06/06/25 13:36) Other Medications ???Medication ???Instructions ???Recorded ???Confirmed ???Type xkffxrni-fgx-Gh-FA 1 mg 1 tab PO DAILY 08/09/22 06/06/25 H istory tablet metoclopramide HCl 5 mg tablet 5 mg PO QACHS #60 tabs 04/19/25 Rx (Reglan) Last Menstrual Period: 02/02/25 Zika: Zika virus screening: Negative : No PFSH PFSH Medical History Fatty liver Renal atrophy, left Elevated liver enzymes Heart palpitations History of gestational hypertension Obesity affecting 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 Date Name GA/Weeks Outcome Route Bth Weight Gen Labor Lgth Anesthesia Del Locatn Provider FOB 10/11/18 Chemical 4 spontaneous 03/30/23 Amanda 39 live - full term vacuum 6lbs 1oz Female epidural [facility] Delivery Date: 03/30/23 Last Updated by: [...] ??-???- Negat (more content not included)... Normal [facility] Urine Cultureon 06-02-2025 URC #1,2 Gram positive francheska suggestive of a diphtheroid. Susceptibility not normally performed on this organism Urine Culture Urine Culture Urine Culture Corynebacterium amycolatum [place] Count 11,000-25,000 Corynebacterium minutissimum Corynebacterium minutissimum Normal [facility] Comment on above: Performed By: #### L 501.2450, L500.3400, L500.2500 #### [facility] Laboratory [address] [place], [address] Cardiology Visit Reporton Cardiology Visit Report [facility] [address] [place], [place] [id number] OFFICE VISIT Date of Service: 05/30/25 MR#: [id number] Acct: [id number] Name: LUZ OLIVEIRA Rep #: 63 : 2000 Provider: Dr. Keven Alvarez MD Age/Sex: 24/F Location: [facility] [place] Status: Signed HPI HPI History of [...] Source Monitor Intake Visit Reasons: PALP (MONSTER) Chronic Specialist Required: No Accompanied by: Self Is patient in pain?: No Allergies escitalopram (From Lexapro) Adverse Reaction (Severe, Verified 05/30/25 09:34) SUICIDAL citalopram hydrobromide (From Celexa) Adverse Reaction (Verified 05/30/25 09:34) Other Medications ???Medication ???Instructions ???Recorded ???Confirmed ???Type tlchihsk-gwx-Aa-FA 1 mg 1 tab PO DAILY 08/09/22 05/30/25 H istory tablet metoclopramide HCl 5 mg tablet 5 mg PO QACHS #60 tabs 04/19/25 Rx (Reglan) PFSH Medical History Fatty liver Renal atrophy, left Elevated liver enzymes Heart palpitations History of gestational hypertension Obesity affecting 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 feapms-nnyvcuv-tohsi reflux Surgical History [place] teeth removed Family History Grandmother Breast cancer Brain cancer Grandfather CVA (cerebral vascular accident) Mother Diabetes Heart failure MRSA carrier History of recurrent miscarriages Father Hypertension Social History adopted: No household members: spouse and children housing: house number of children: 1 current occupation: [employer] current occupational exposures/hazards: No pets and [...] times per week duration: 15-30 minutes/day kalpana/methodist: Lutheran seatbelt use: always do you feel safe at home: Yes 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 Normal [facility] Comprehensive Metabolic Prof ilon 05-30-2025 Albumin [Mass/Vol] 4.0 g/dL Normal 3.5-5.0 [facility] Comment on above: Performed By: #### L 500.4050 #### [facility] Laboratory [address] [place], [address] Albumin/Globulin [Mass ratio] 1.5 {ratio} Normal 0.9-2.4 [facility] Comment on above: Performed By: #### L 500.4050 #### [facility] Laboratory [address] [place], [address] ALK PHOS 56 U/L Normal 35-104 [facility] Comment on above: Performed By: #### L 500.4050 #### [facility] Laboratory [address] [place], [address] ALT [Catalytic activity/Vol] 35 U/L Normal <=34 [facility] Comment on above: Performed By: #### L 500.4050 #### [facility] [address] [place], [address] AST [Catalytic activity/Vol] 29 U/L Normal <=31 [facility] Comment on above: Performed By: #### L 500.4050 #### [facility] Laboratory [address] [place], [address] Bilirubin [Mass/Vol] 0.36 mg/dL Normal 0.00-1.30 [facility] Comment on above: Performed By: #### L 500.4050 #### [facility] Laboratory [address] [place], [address] BUN/CRE 10.5 RATIO Normal 10-20 [facility] Comment on above: Performed By: #### L 500.4050 #### [facility] Laboratory [address] [place], [address] Calcium [Mass/Vol] 9.3 mg/dL Normal 7.6-11.0 [facility] Comment on above: Performed By: #### L 500.4050 #### [facility] Laboratory [address] [place], [address] Chloride [Moles/Vol] 104 mmol/L Normal 98-108 [facility] Comment on above: Performed By: #### L 500.4050 #### [facility] Laboratory [address] [place], [address] CO2 [Moles/Vol] 20.0 mmol/L Low 21.0-32.0 [facility] Comment on above: Performed By: #### L 500.4050 #### [facility] Laboratory [address] [place], [address] Creatinine [Mass/Vol] 0.57 mg/dL Low 0.70-1.20 [facility] Comment on above: Performed By: #### L 500.4050 #### [facility] Laboratory [address] [place], [address] GAP 14 Normal 5-15 [facility] Comment on above: Performed By: #### L 500.4050 #### [facility] Laboratory [address] [place], [address] GFR/1.73 sq M.predicted among non-blacks MDRD (S/P/Bld) [Vol rate/Area] 129 mL/min/{1.73_m2} Normal >60 [facility] Comment on above: Result Comment: mL/m in/1.73m2 CKD-EPI Creatinine Equation (2020) Performed By: #### L 500.4050 #### [facility] Laboratory [address] [place], [address] Globulin (S) [Mass/Vol] 2.6 g/dL Normal 2.2-4.2 [facility] Comment on above: Performed By: #### L 500.4050 #### [facility] Laboratory [address] [place], [address] Glucose [Mass/Vol] 92 mg/dL Normal 70-99 [facility] Comment on above: Performed By: #### L 500.4050 #### [facility] [address] [place], [address] Potassium [Moles/Vol] 3.8 mmol/L Normal 3.3-5.1 [facility] Comment on above: Performed By: #### L 500.4050 #### [facility] [address] [place], [address] Sodium [Moles/Vol] 138 mmol/L Normal 133-145 [facility] Comment on above: Performed By: #### L 500.4050 #### [facility] Laboratory [address] [place], [address] T PROT 6.6 g/dL Normal 5.9-8.4 [facility] Comment on above: Performed By: #### L 500.4050 #### [facility] Laboratory [address] [place], [address] Urea nitrogen [Mass/Vol] 6 mg/dL Normal 4-19 [facility] Comment on above: Performed By: #### L 500.4050 #### [facility] Laboratory [address] [place], [address] Thyroid Stim Hormone (TSH)on 05-30-2025 TSH 0.631 uIU/mL Normal 0.300-4.200 [facility] Comment on above: Performed By: #### L 501.2450, L500.3400, L500.2500 #### [facility] Laboratory [address] [place], [address] CBC W/Diff, Automatedon 08-0 4-2024 Absolute Lymph 1.81 X10 3/uL Normal 0.83-4.51 [facility] Comment on above: Performed By: #### L 501.0900 #### [facility] Laboratory [address] [place], [address] Absolute Neut 5.3 X10 3/uL Normal 2.0-7.7 [facility] Comment on above: Performed By: #### L 501.0900 #### [facility] Laboratory [address] [place], [address] Basophils/100 WBC (Bld) 0.1 % Normal 0-1 [facility] Comment on above: Performed By: #### L 501.0900 #### [facility] Laboratory [address] [place], [address] Eosinophils/100 WBC (Bld) 0.3 % Normal 0-5 [facility] Comment on above: Performed By: #### L 501.0900 #### [facility] Laboratory [address] [place], [address] Erythrocyte distribution width (RBC) [Ratio] 12.9 % Normal 11.6-14.6 [facility] Comment on above: Performed By: #### L 501.0900 #### [facility] Laboratory [address] [place], [address] Hematocrit (Bld) [Volume fraction] 36.8 % Low 37-47 [facility] Comment on above: Performed By: #### L 501.0900 #### [facility] Laboratory [address] [place], [address] Hemoglobin (Bld) [Mass/Vol] 13.0 g/dL Normal 12.0-15.0 [facility] Comment on above: Performed By: #### L 501.0900 #### [facility] Laboratory [address] [place], [address] IG% 0.400 Normal 0.0-0.9 [facility] Comment on above: Result Comment: IG% - Immature Granulocytes (promyelocytes, myelocytes and metamyelocytes) > 1% indicates that a LEFT SHIFT is Present. Performed By: #### L 501.0900 #### [facility] [address] [place], [address] Lymphocytes/100 WBC (Bld) 23.5 % Normal 19-41 [facility] Comment on above: Performed By: #### L 501.0900 #### [facility] Laboratory [address] [place], [address] MCH (RBC) [Entitic mass] 31.0 pg Normal 27.0-32.0 [facility] Comment on above: Performed By: #### L 501.0900 #### [facility] Laboratory [address] [place], [address] MCHC (RBC) [Mass/Vol] 35.3 g/dL Normal 32-36 [facility] Comment on above: Performed By: #### L 501.0900 #### [facility] Laboratory [address] [place], [address] MCV (RBC) [Entitic vol] 87.6 fL Normal 81-99 [facility] Comment on above: Performed By: #### L 501.0900 #### [facility] Laboratory [address] [place], [address] Monocytes/100 WBC (Bld) 6.7 % Normal 0-10 [facility] Comment on above: Performed By: #### L 501.0900 #### [facility] [address] [place], [address] Neutrophils/100 WBC (Bld) 69.0 % Normal 47-70 [facility] Comment on above: Performed By: #### L 501.0900 #### [facility] Laboratory [address] [place], [address] Nucleated RBC (Bld) [#/Vol] 0 10*3/uL Normal 0-5 [facility] Comment on above: Performed By: #### L 501.0900 #### [facility] Laboratory [address] [place], [address] Platelet mean volume (Bld) [Entitic vol] 10.3 fL Normal 6.2-12.0 [facility] Comment on above: Performed By: #### L 501.0900 #### [facility] Laboratory [address] [place], [address] Platelets (Bld) [#/Vol] 198 10*3/uL Normal 150-450 [facility] Comment on above: Performed By: #### L 501.0900 #### [facility] [address] [place], [address] RBC (Bld) [#/Vol] 4.20 10*6/uL Normal 4.2-5.4 [facility] Comment on above: Performed By: #### L 501.0900 #### [facility] Laboratory [address] [place], [address] RDW SD 39.9 fl Normal 35.1-43.9 [facility] Comment on above: Performed By: #### L 501.0900 #### [facility] Laboratory [address], [address] WBC (Bld) [#/Vol] 7.7 10*3/uL Normal 4.4-11.0 [facility] Comment on above: Performed By: #### L 501.0900 #### [facility] [address] [place], [address] Comprehensive Metabolic Prof ilon 05-14-2025 Albumin [Mass/Vol] 4.2 g/dL Normal 3.5-5.0 [facility] Comment on above: Performed By: #### L 501.0900 #### [facility] Laboratory [address] [place], [address] Albumin/Globulin [Mass ratio] 1.5 {ratio} Normal 0.9-2.4 [facility] Comment on above: Performed By: #### L 501.0900 #### [facility] Laboratory [address] [place], [address] ALK PHOS 61 U/L Normal 35-104 [facility] Comment on above: Performed By: #### L 501.0900 #### [facility] Laboratory [address] [place], [address] ALT [Catalytic activity/Vol] 47 U/L High <=34 [facility] Comment on above: Performed By: #### L 501.0900 #### [facility] Laboratory [address] [place], [address] AST [Catalytic activity/Vol] 36 U/L High <=31 [facility] Comment on above: Performed By: #### L 501.0900 #### [facility] Laboratory [address] [place], [address] Bilirubin [Mass/Vol] 0.52 mg/dL Normal 0.00-1.30 [facility] Comment on above: Performed By: #### L 501.0900 #### [facility] Laboratory [address] [place], [address] BUN/CRE 10.7 RATIO Normal 10-20 [facility] Comment on above: Performed By: #### L 501.0900 #### [facility] Laboratory [address] [place], [address] Calcium [Mass/Vol] 9.5 mg/dL Normal 7.6-11.0 [facility] Comment on above: Performed By: #### L 501.0900 #### [facility] Laboratory [address] [place], [address] Chloride [Moles/Vol] 102 mmol/L Normal 98-108 [facility] Comment on above: Performed By: #### L 501.0900 #### [facility] Laboratory [address] [place], [address] CO2 [Moles/Vol] 18.6 mmol/L Low 21.0-32.0 [facility] Comment on above: Performed By: #### L 501.0900 #### [facility] Laboratory [address] [place], [address] Creatinine [Mass/Vol] 0.66 mg/dL Low 0.70-1.20 [facility] Comment on above: Performed By: #### L 501.0900 #### [facility] Laboratory [address] [place], [address] GAP 16 High 5-15 [facility] Comment on above: Performed By: #### L 501.0900 #### [facility] Laboratory [address] [place], [address] GFR/1.73 sq M.predicted among non-blacks MDRD (S/P/Bld) [Vol rate/Area] 125 mL/min/{1.73_m2} Normal >60 [facility] Comment on above: Result Comment: mL/m in/1.73m2 CKD-EPI Creatinine Equation (2020) Performed By: #### L 501.0900 #### [facility] Laboratory [address] [place], [address] Globulin (S) [Mass/Vol] 2.8 g/dL Normal 2.2-4.2 [facility] Comment on above: Performed By: #### L 501.0900 #### [facility] Laboratory [address] [place], [address] Glucose [Mass/Vol] 92 mg/dL Normal 70-99 [facility] Comment on above: Performed By: #### L 501.0900 #### [facility] Laboratory [address] [place], [address] Potassium [Moles/Vol] 3.8 mmol/L Normal 3.3-5.1 [facility] Comment on above: Performed By: #### L 501.0900 #### [facility] Laboratory [address] [place], [address] Sodium [Moles/Vol] 137 mmol/L Normal 133-145 [facility] Comment on above: Performed By: #### L 501.0900 #### [facility] Laboratory [address] [place], [address] T PROT 7.0 g/dL Normal 5.9-8.4 [facility] Comment on above: Performed By: #### L 501.0900 #### [facility] Laboratory [address] [place], [address] Urea nitrogen [Mass/Vol] 7 mg/dL Normal 4-19 [facility] Comment on above: Performed By: #### L 501.0900 #### [facility] Laboratory [address] [place], [address] Political Science Chair Office Visit Reporton 05-14-2025 Political Science Chair Office Visit Report [facility] [address], [address] [place] [address] OFFICE VISIT Date of Service: 05/14/25 MR#: [id number] Acct: [id number] Name: LUZ OLIVEIRA Rep #: [id number] : 2000 Provider: Dr. Rama Trammell DO Age/Sex: 24/F [place] [facility] [place]: Signed Intake Vital Signs 05/07/25 14:40 05/14/25 14:48 05/14/25 14:48 Height 5 ft 1 in 5 ft 1 in 5 ft 1 in Weight: 185 lb 1 oz BMI 34.9 BP 100/52 L Intake Visit Reasons: 14wk OB, elevated liver enzymes cbc/cmp FU Chronic Specialist Required: No Is patient in pain?: No Allergies escitalopram (From Lexapro) Adverse Reaction (Severe, Verified 05/14/25 14:48) SUICIDAL citalopram hydrobromide (From Celexa) Adverse Reaction (Verified 05/14/25 14:48) Other Medications ???Medication ???Instructions ???Recorded ???Confirmed ???Type xazpaxsw-rjz-Pp-FA 1 mg 1 tab PO DAILY 08/09/22 05/14/25 H istory tablet metoclopramide HCl 5 mg tablet 5 mg PO QACHS #60 tabs 04/19/25 Rx (Reglan) Last Menstrual Period: 02/02/25 Zika: Zika virus screening: Negative : No PFSH PFSH Medical History Congenital kmxlua-agdxrii-pbquf reflux Surgical History [place] teeth removed Family History Grandmother Breast cancer Brain cancer Grandfather CVA (cerebral vascular accident) Mother Diabetes Heart failure MRSA carrier History of recurrent miscarriages Father Hypertension Social History adopted: No household members: spouse and children housing: house number of children: 1 current occupation: [employer] current occupational exposures/hazards: No pets and [...] times per week duration: 15-30 minutes/day kalpana/methodist: Lutheran seatbelt use: always do you feel safe at home: Yes 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 (more content not included)... Normal [facility] CBC W/Diff, Automatedon 07-2 Absolute Lymph 1.24 X10 3/uL Normal 0.83-4.51 [facility] Comment on above: Performed By: #### L 509.8002, L501.9985, L500.4050, L3890.6006, BTS, L100.0100, L3890.6301, L509.4006, L3890.6102 #### [facility] Laboratory [address] [place], [place], [address] Absolute Neut 6.2 X10 3/uL Normal 2.0-7.7 [facility] Comment on above: Performed By: #### L 509.8002, L501.9985, L500.4050, L3890.6006, BTS, L100.0100, L3890.6301, L509.4006, L3890.6102 #### [facility] Laboratory [address] [place], [address] Basophils/100 WBC (Bld) 0.1 % Normal 0-1 [facility] Comment on above: Performed By: #### L 509.8002, L501.9985, L500.4050, L3890.6006, BTS, L100.0100, L3890.6301, L509.4006, L3890.6102 #### [facility] [address] [place], [address] Eosinophils/100 WBC (Bld) 0.1 % Normal 0-5 [facility] Comment on above: Performed By: #### L 509.8002, L501.9985, L500.4050, L3890.6006, BTS, L100.0100, L3890.6301, L509.4006, L3890.6102 #### [facility] [address] [place], [address] ([address] Erythrocyte distribution width (RBC) [Ratio] 12.5 % Normal 11.6-14.6 [facility] Comment on above: Performed By: #### L 509.8002, L501.9985, L500.4050, L3890.6006, BTS, L100.0100, L3890.6301, L509.4006, L3890.6102 #### [facility] [address] [place], [address] Hematocrit (Bld) [Volume fraction] 36.6 % Low 37-47 [facility] Comment on above: Performed By: #### L 509.8002, L501.9985, L500.4050, L3890.6006, BTS, L100.0100, L3890.6301, L509.4006, L3890.6102 #### [facility] [address] [place], [address] Hemoglobin (Bld) [Mass/Vol] 12.8 g/dL Normal 12.0-15.0 [facility] Comment on above: Performed By: #### L 509.8002, L501.9985, L500.4050, L3890.6006, BTS, L100.0100, L3890.6301, L509.4006, L3890.6102 #### [facility] [address] [place], [address] IG% 0.500 Normal 0.0-0.9 [facility] Comment on above: Result Comment: IG% - Immature Granulocytes (promyelocytes, myelocytes and metamyelocytes) > 1% indicates that a LEFT SHIFT is Present. Performed By: #### L 509.8002, L501.9985, L500.4050, L3890.6006, BTS, L100.0100, L3890.6301, L509.4006, L3890.6102 #### [facility] [address] [place], [address] Lymphocytes/100 WBC (Bld) 15.8 % Low 19-41 [facility] Comment on above: Performed By: #### L 509.8002, L501.9985, L500.4050, L3890.6006, BTS, L100.0100, L3890.6301, L509.4006, L3890.6102 #### [facility] [address] [place], [address] MCH (RBC) [Entitic mass] 30.8 pg Normal 27.0-32.0 [facility] Comment on above: Performed By: #### L 509.8002, L501.9985, L500.4050, L3890.6006, BTS, L100.0100, L3890.6301, L509.4006, L3890.6102 #### [facility] [address] [place], [address] MCHC (RBC) [Mass/Vol] 35.0 g/dL Normal 32-36 [facility] Comment on above: Performed By: #### L 509.8002, L501.9985, L500.4050, L3890.6006, BTS, L100.0100, L3890.6301, L509.4006, L3890.6102 #### [facility] [address] [place], [address] MCV (RBC) [Entitic vol] 88.2 fL Normal 81-99 [facility] Comment on above: Performed By: #### L 509.8002, L501.9985, L500.4050, L3890.6006, BTS, L100.0100, L3890.6301, L509.4006, L3890.6102 #### [facility] [address] [facility] [place], [address] Monocytes/100 WBC (Bld) 5.0 % Normal 0-10 [facility] Comment on above: Performed By: #### L 509.8002, L501.9985, L500.4050, L3890.6006, BTS, L100.0100, L3890.6301, L509.4006, L3890.6102 #### [facility] [facility] [address] [place], [address] Neutrophils/100 WBC (Bld) 78.5 % High 47-70 [facility] Comment on above: Performed By: #### L 509.8002, L501.9985, L500.4050, L3890.6006, BTS, L100.0100, L3890.6301, L509.4006, L3890.6102 #### [facility] [address] [place] [place], [address] Nucleated RBC (Bld) [#/Vol] 0 10*3/uL Normal 0-5 [facility] Comment on above: Performed By: #### L 509.8002, L501.9985, L500.4050, L3890.6006, BTS, L100.0100, L3890.6301, L509.4006, L3890.6102 #### [facility] [address] [place], [address] ( Platelet mean volume (Bld) [Entitic vol] 10.7 fL Normal 6.2-12.0 [facility] Comment on above: Performed By: #### L 509.8002, L501.9985, L500.4050, L3890.6006, BTS, L100.0100, L3890.6301, L509.4006, L3890.6102 #### [facility] [address] [place], [address] ( Platelets (Bld) [#/Vol] 180 10*3/uL Normal 150-450 [facility] Comment on above: Performed By: #### L 509.8002, L501.9985, L500.4050, L3890.6006, BTS, L100.0100, L3890.6301, L509.4006, L3890.6102 #### [facility] [address] [place], [address] (046) RBC (Bld) [#/Vol] 4.15 10*6/uL Low 4.2-5.4 [facility] Comment on above: Performed By: #### L 509.8002, L501.9985, L500.4050, L3890.6006, BTS, L100.0100, L3890.6301, L509.4006, L3890.6102 #### [facility] [address] [place], [address] RDW SD 39.5 fl Normal 35.1-43.9 [facility] Comment on above: Performed By: #### L 509.8002, L501.9985, L500.4050, L3890.6006, BTS, L100.0100, L3890.6301, L509.4006, L3890.6102 #### [facility] [address] [place], [address] WBC (Bld) [#/Vol] 7.8 10*3/uL Normal 4.4-11.0 [facility] Comment on above: Performed By: #### L 509.8002, L501.9985, L500.4050, L3890.6006, BTS, L100.0100, L3890.6301, L509.4006, L3890.6102 #### [facility] [address] [place], [address] Comprehensive Metabolic Prof [facility] 05-07-2025 Albumin [Mass/Vol] 4.2 g/dL Normal 3.5-5.0 [facility] Comment on above: Performed By: #### L 509.8002, L501.9985, L500.4050, L3890.6006, BTS, L100.0100, L3890.6301, L509.4006, L3890.6102 ####[facility] [address] [place], [address] Albumin/Globulin [Mass ratio] 1.6 {ratio} Normal 0.9-2.4 [facility] Comment on above: Performed By: #### L 509.8002, L501.9985, L500.4050, L3890.6006, BTS, L100.0100, L3890.6301, L509.4006, L3890.6102 ####[facility] [address] [place], [address] ALK PHOS 62 U/L Normal 35-104 [facility] Comment on above: Performed By: #### L 509.8002, L501.9985, L500.4050, L3890.6006, BTS, L100.0100, L3890.6301, L509.4006, L3890.6102 ####[facility] [address] [place], [address] ALT [Catalytic activity/Vol] 58 U/L High <=34 [facility] Comment on above: Performed By: #### L 509.8002, L501.9985, L500.4050, L3890.6006, BTS, L100.0100, L3890.6301, L509.4006, L3890.6102 ####[facility] [address] [place], [address] AST [Catalytic activity/Vol] 43 U/L High <=31 [facility] Comment on above: Performed By: #### L 509.8002, L501.9985, L500.4050, L3890.6006, BTS, L100.0100, L3890.6301, L509.4006, L3890.6102 ####[facility] [address] [place], [place], [phone] Bilirubin [Mass/Vol] 0.56 mg/dL Normal 0.00-1.30 [facility] Comment on above: Performed By: #### L 509.8002, L501.9985, L500.4050, L3890.6006, BTS, L100.0100, L3890.6301, L509.4006, L3890.6102 ####[facility] [address] [place], [place], [phone] BUN/CRE 10.7 RATIO Normal 10-20 [facility] Comment on above: Performed By: #### L 509.8002, L501.9985, L500.4050, L3890.6006, BTS, L100.0100, L3890.6301, L509.4006, L3890.6102 ####[facility] [address] [place], [address] Calcium [Mass/Vol] 9.5 mg/dL Normal 7.6-11.0 [facility] Comment on above: Performed By: #### L 509.8002, L501.9985, L500.4050, L3890.6006, BTS, L100.0100, L3890.6301, L509.4006, L3890.6102 ####[facility] [address] [place], [address] Chloride [Moles/Vol] 102 mmol/L Normal 98-108 [facility] Comment on above: Performed By: #### L 509.8002, L501.9985, L500.4050, L3890.6006, BTS, L100.0100, L3890.6301, L509.4006, L3890.6102 ####[facility] [address] [place], [address] CO2 [Moles/Vol] 17.7 mmol/L Low 21.0-32.0 [facility] Comment on above: Performed By: #### L 509.8002, L501.9985, L500.4050, L3890.6006, BTS, L100.0100, L3890.6301, L509.4006, L3890.6102 ####[facility] [address] [place], [address] Creatinine [Mass/Vol] 0.59 mg/dL Low 0.70-1.20 [facility] Comment on above: Performed By: #### L 509.8002, L501.9985, L500.4050, L3890.6006, BTS, L100.0100, L3890.6301, L509.4006, L3890.6102 ####[facility] [address] [place], [address] GAP 16 High 5-15 [facility] Comment on above: Performed By: #### L 509.8002, L501.9985, L500.4050, L3890.6006, BTS, L100.0100, L3890.6301, L509.4006, L3890.6102 ####[facility] [address] [place], [address] GFR/1.73 sq M.predicted among non-blacks MDRD (S/P/Bld) [Vol rate/Area] 128 mL/min/{1.73_m2} Normal >60 [facility] Comment on above: Result Comment: mL/m in/1.73m2 CKD-EPI Creatinine Equation (2020) Performed By: #### L 509.8002, L501.9985, L500.4050, L3890.6006, BTS, L100.0100, L3890.6301, L509.4006, L3890.6102 ####[facility] [address] [place], [address] Globulin (S) [Mass/Vol] 2.7 g/dL Normal 2.2-4.2 [facility] Comment on above: Performed By: #### L 509.8002, L501.9985, L500.4050, L3890.6006, BTS, L100.0100, L3890.6301, L509.4006, L3890.6102 ####[facility] [address] [place], [address] Glucose [Mass/Vol] 110 mg/dL High 70-99 [facility] Comment on above: Performed By: #### L 509.8002, L501.9985, L500.4050, L3890.6006, BTS, L100.0100, L3890.6301, L509.4006, L3890.6102 ####[facility] [address] [place], [address] Potassium [Moles/Vol] 3.7 mmol/L Normal 3.3-5.1 [facility] Comment on above: Performed By: #### L 509.8002, L501.9985, L500.4050, L3890.6006, BTS, L100.0100, L3890.6301, L509.4006, L3890.6102 ####[facility] [address] [place], [place], [address] Sodium [Moles/Vol] 135 mmol/L Normal 133-145 [facility] Comment on above: Performed By: #### L 509.8002, L501.9985, L500.4050, L3890.6006, BTS, L100.0100, L3890.6301, L509.4006, L3890.6102 ####[facility] [address] [place], [address] T PROT 6.9 g/dL Normal 5.9-8.4 [facility] Comment on above: Performed By: #### L 509.8002, L501.9985, L500.4050, L3890.6006, BTS, L100.0100, L3890.6301, L509.4006, L3890.6102 ####[facility] [address] [place], [address] Urea nitrogen [Mass/Vol] 6 mg/dL Normal 4-19 [facility] Comment on above: Performed By: #### L 509.8002, L501.9985, L500.4050, L3890.6006, BTS, L100.0100, L3890.6301, L509.4006, L3890.6102 ####[facility] [address] [place], [address] HIVon 05-07-2025 HIV Non-Reactive Normal Nonreactive [facility] Comment on above: Result Comment: Non- Reactive Reactive Repeatedly reactive samples must be confirmed according to CDC recommended confirmatory algorithms. The subresults for either HIVAG or AHIV can be used as an aid in the selection of the confirmation algorithm for reactive samples. Send out specimens with Reactive results to [facility] for confirmation. Order the HIV antibody detection and differentiation: lc#[id number] Performed By: #### L 509.8002, L501.9985, L500.4050, L3890.6006, BTS, L100.0100, L3890.6301, L509.4006, L3890.6102 ####[facility] [address] [facility] [place], [place], [address] Hemoglobin A1con 05-07-2025 HbA1c (Bld) [Mass fraction] 5.1 % Normal <=5.6 [facility] Comment on above: Result Comment: Norm al < 5.7 % Prediabetic 5.7 - 6.4 % Diabetic >or= 6.5 % Please note range changes. Performed By: #### L 509.8002, L501.9985, L500.4050, L3890.6006, BTS, L100.0100, L3890.6301, L509.4006, L3890.6102 #### [facility] [address] [facility] [place], [place], [address] Hepatitis C Antibodyon 05-07 Hepatitis C Ab Non-Reactive Normal Nonreactive [facility] Comment on above: Result Comment: Reac tive: Presumptive evidence of antibodies to HCV. Follow CDC recommendations for supplemental testing. Non-Reactive: Antibodies to HCV were not detected; does not exclude the possibility of exposure to HCV Reactive Results are presumptive evidence of antibodies to HCV. Follow CDC recommendations for supplemental testing. Order confirmation testing: HCV Quant by PCR testing - HCVPCR #[id number] Non Reactive: < 0.8 Equivocal: >/= 0.8 to < 1.0 Reactive: >/= 1.0 The CDC requires that a reactive/equivocal HCV antibody result be sent out for confirmation. HCV Quant by PCR testing. Performed By: #### L 509.8002, L501.9985, L500.4050, L3890.6006, BTS, L100.0100, L3890.6301, L509.4006, L3890.6102 ####[facility] [address] [place], [address] L3890.6102on 05-07-2025 HEP B Surf Ag Non-Reactive Normal Nonreactive [facility] Comment on above: Result Comment: Reac tive: Presumptive evidence of HBV. Repeatedly reactive samples must be confirmed using a neutralization test ([employer] HBsAg Confirmatory Test) Non-Reactive: HBsAg not detected; does not exclude the possibility of exposure to HBV Performed By: #### L 509.8002, L501.9985, L500.4050, L3890.6006, BTS, L100.0100, L3890.6301, L509.4006, L3890.6102 ####[facility] [address] [place], [address] L509.4006on 05-07-2025 Rubella IgG REAC Normal Nonreactive [facility] Comment on above: Result Comment: Anti body Result: Interpretation Non-Reactive: Non-Immune Reactive: Immune The following results were obtained with the [employer] Rubella IgG assay. Results from assays of other manufacturers cannot be used interchangeably. Performed By: #### L 509.8002, L501.9985, L500.4050, L3890.6006, BTS, L100.0100, L3890.6301, L509.4006, L3890.6102 ####[facility] [address] [place], [place], [address] Political Science Chair Office Visit Reporton 05-07-2025 Political Science Chair Office Visit Report [facility] [address], [address] [place] [address] OFFICE VISIT Date of Service: 05/07/25 MR#: [id number] Acct: [id number] Name: LUZ OLIVEIRA Rep #: [id number] : 2000 Provider: JELENA Ordonez ams Age/Sex: 24/F [place] [facility] [place]: Signed Intake Vital Signs 01/02/25 18:31 04/09/25 10:40 05/07/25 14:40 Height 5 ft 1 in 5 ft 1 in 5 ft 1 in Weight: 187 lb 4 oz BMI 35.4 BP 117/83 H Intake Visit Reasons: 13wk OB Chief Complaint: 13wk OB Chronic Specialist Required: No Is patient in pain?: No Allergies escitalopram (From Lexapro) Adverse Reaction (Severe, Verified 05/07/25 14:39) SUICIDAL citalopram hydrobromide (From Celexa) Adverse Reaction (Verified 05/07/25 14:39) Other Medications ???Medication ???Instructions ???Recorded ???Confirmed ???Type miceckii-mnc-Kb-FA 1 mg 1 tab PO DAILY 08/09/22 05/07/25 H istory tablet metoclopramide HCl 5 mg tablet 5 mg PO QACHS #60 tabs 04/19/25 Rx (Reglan) Last Menstrual Period: 02/02/25 : No PFSH PFSH Medical History Congenital hqkqsu-qssjfrx-nkpqt reflux Surgical History [place] teeth removed Family History Grandmother Breast cancer Brain cancer Grandfather CVA (cerebral vascular accident) Mother Diabetes Heart failure MRSA carrier History of recurrent miscarriages Father Hypertension Social History adopted: No household members: spouse and children housing: house number of children: 1 current occupation: [employer] current occupational exposures/hazards: No pets and [...] times per week duration: 15-30 minutes/day kalpana/methodist: Lutheran seatbelt use: always do you feel safe at home: Yes 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 Normal [facility] Syphilis Antibodieson 2024 Syphilis Abs Non-Reactive Normal Nonreactive [facility] Comment on above: Performed By: #### L 509.8002, L501.9985, L500.4050, L3890.6006, BTS, L100.0100, L3890.6301, L509.4006, L3890.6102 ####[facility] [address] [place], [place], [address] Type AND Screenon 05-07-2025 Ab SCREEN GEL Negative Normal [facility] Comment on above: Order Comment: PN Performed By: #### L 509.8002, L501.9985, L500.4050, L3890.6006, BTS, L100.0100, L3890.6301, L509.4006, L3890.6102 ####[facility] [address] [place], [address] Chlamydia/GC CHICHO aptimaon CHLAMY,NUC ACID Negative Normal Negative [facility] Comment on above: Performed By: #### L 501.2450, L500.3400, L500.2500 #### [facility] Laboratory [address] [place], [address] GC BY NUC ACID Negative Normal Negative [facility] Comment on above: Result Comment: Perf ormed at: =G - [facility] [address] [id number] Priming Machine Operator: Rubi Snow MD, Phone: [phone] Performed By: #### L 501.2450, L500.3400, L500.2500 #### [facility] [address] [place], [address] PAP I-G w/rfx hrHPV-Aptimaon 04-12-2025 ADEQ Comment Normal . [facility] Comment on above: Order Comment: Speci men Comment: [id number] Comment: No. of containers..01 ThinPrep Vial Result Comment: Sati sfactory for evaluation. Endocervical and/or squamous metaplastic cells (endocervical component) are present. Performed By: #### L 501.2450, L500.3400, L500.2500 #### [facility] [address] [place], [address] COMM . Normal . [facility] Comment on above: Order Comment: Speci men Comment: [id number] Comment: No. of containers..01 ThinPrep Vial Performed By: #### L 501.2450, L500.3400, L500.2500 #### [facility] [address] [place], [place], [address] COMMENT Comment Normal . [facility] Comment on above: Order Comment: Speci men Comment: [id number] Comment: No. of containers..01 ThinPrep Vial Result Comment: This liquid based ThinPrep(R) pap test was screened with the use of an image guided system. Performed By: #### L 501.2450, L500.3400, L500.2500 #### [facility] [address] [place], [place], [address] DIAG Comment Normal . [facility] Comment on above: Order Comment: Speci men Comment: [id number] Comment: No. of containers..01 ThinPrep Vial Result Comment: NEGA TIVE FOR INTRAEPITHELIAL LESION OR MALIGNANCY. Performed By: #### L 501.2450, L500.3400, L500.2500 #### [facility] [address] [place], [place], [address] HPV RFLX Comment Normal . [facility] Comment on above: Order Comment: Speci men Comment: [id number] Comment: No. of containers..01 ThinPrep Vial Result Comment: The HPV DNA reflex criteria were not met with this specimen result therefore, no HPV testing was performed. Performed at: [address] [id number] Priming Machine Operator: Rubi Snow MD, Phone: [phone] Performed By: #### L 501.2450, L500.3400, L500.2500 #### [facility] [address] [place], [place], [address] PAPSMR Comment Normal . [facility] Comment on above: Order Comment: Speci men Comment: [id number] Comment: No. of containers..01 ThinPrep Vial Result [...] By: #### L 501.2450, L500.3400, L500.2500 #### [facility] [address] [place], [address] PERFORM Comment Normal . [facility] Comment on above: Order Comment: Speci men Comment: [id number] Comment: No. of containers..01 ThinPrep Vial Result Comment: Delores Lombardo, Batchmaker (ASCP) Performed By: #### L 501.2450, L500.3400, L500.2500 #### [facility] [address] [place], [address] Urine Cultureon 04-11-2025 URC Mixed Gram Positive Organisms [place] Count 80,000-100,000 MIXC Mixed contaminants. Submit a new specimen if indicated. Normal [facility] Comment on above: Performed By: #### L 501.2450, L500.3400, L500.2500 #### [facility] Laboratory [address] [place], [place], [address] Political Science Chair Office Visit Reporton 04-09-2025 Political Science Chair Office Visit Report [facility] [address], [address] [place] [address] OFFICE VISIT Date of Service: 04/09/25 MR#: [id number] Acct: [id number] Name: LUZ OLIVEIRA Rep #: [id number] : 2000 Provider: Dr. Geraldine storey MD Age/Sex: 24/F [place] [facility] [place]: Signed Intake Vital Signs 01/02/25 18:31 03/13/25 11:49 04/09/25 10:39 04/09/25 10:40 Height 5 ft 1 in 5 ft 1 in 5 ft 1 in 5 ft 1 in Weight: 194 lb 8 oz BMI 36.7 BP 106/69 Intake Visit Reasons: *NEW* NOB LMP 02/02, KIMO 11/09 per Chronic Specialist Required: No Is patient in pain?: Yes (cramping with urination) Allergies escitalopram (From Lexapro) Adverse Reaction (Severe, Verified 04/09/25 10:39) SUICIDAL citalopram hydrobromide (From Celexa) Adverse Reaction (Verified 04/09/25 10:39) Other Medications ???Medication ???Instructions ???Recorded ???Confirmed ???Type umwztbzq-ogp-Yw-FA 1 mg 1 tab PO DAILY 08/09/22 04/09/25 H istory tablet Last Menstrual Period: 02/02/25 Zika: Zika virus screening: Negative : No PFSH PFSH Medical History (Updated 04/09/25 @ 10:50 by Remedios Wong) Congenital wfojwh-omqbzid-jzwnu reflux Surgical History [place] teeth removed Family History Grandmother Breast cancer Brain cancer Grandfather CVA (cerebral vascular accident) Mother Diabetes Heart failure MRSA carrier History of recurrent miscarriages Father Hypertension Social History adopted: No household members: spouse and children housing: house number of children: 1 current occupation: [employer] current occupational exposures/hazards: No pets and [...] times per week duration: 15-30 minutes/day kalpana/methodist: Lutheran seatbelt use: always do you feel safe at home: Yes 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 Normal [facility] Protein+Creatinine Ratio,Uri neon 04-09-2025 PROT:CRE RATIO 58 mg/g CRE Normal 0-200 [facility] Comment on above: Performed By: #### L 501.2450, L500.3400, L500.2500 #### [facility] Laboratory [address] [place], [address] Protein (U) [Mass/Vol] 15.6 mg/dL High 0.0-12.0 [facility] Comment on above: Performed By: #### L 501.2450, L500.3400, L500.2500 #### [facility] Laboratory [address] [place], [address] Transvaginal w/Preg USon Transvaginal w/Preg US [facility] Imaging Services [address] [place], [place] [address] Transvaginal w/Preg US MR#: [id number] Acct: [id number] Name: LUZ OLIVEIRA Rep #: [id number] : 2000 F 24 From: Maxwell Ponce MD PCP: Care Physician,No Primary Status: REG CLI Study: Transvaginal w/Preg US Date of Exam: 03/15/25 Exam# [id number] Ordering Dr: Remedios Garcia NP, NP PROCEDURE: [...] follow-up. 2. Small perigestational hemorrhage. Reading Location: [facility] CC: JARAD Garcia; No Primary Care Physician Operator Lights: Signed Normal [facility] hCG Titer Quant., Serumon HCG QUANT. 7025 mIU/mL High <9 non-preg [facility] Comment on above: Result Comment: Gest ational Age 0.2-1 Week: 5-50 mIU/mL 1-2 Weeks: 50-500 mIU/mL 2-3 Weeks: 100-5000 mIU/mL 3-4 Weeks: 500-10,000 mIU/mL 4-5 Weeks:1000-50,000 mIU/mL 5-6 Weeks: 10,000-100,000 mIU/mL 6-8 Weeks: 15,000-200,000 mIU/mL 2-3 Months:10,000-100,000 mIU/mL Performed By: #### L 501.2450, L500.3400, L500.2500 #### [facility] Laboratory [address] [place], [address] Office Visit Reporton 2024 Office Visit Report [facility] [address] [place] [address] OFFICE VISIT Date of Service: 03/13/25 MR#: [id number] Acct: [id number] Patient: LUZ OLIVEIRA Rep #: [id number] : 2000 Provider: JARAD moctezuma Age/Sex: 24/F [place] [facility] [place]: Signed Intake Vital Signs 01/02/25 18:31 03/13/25 11:49 Height 5 ft 1 in 5 ft 1 in Weight: 200 lb 6 oz BMI 37.8 BP 118/72 Intake Visit Reasons: Pre New OB, Confirm preg, Vitals Chronic Specialist Required: No Is patient in pain?: No Allergies escitalopram (From Lexapro) Adverse Reaction (Severe, Verified 03/13/25 11:12) SUICIDAL citalopram hydrobromide (From Celexa) Adverse Reaction (Verified 03/13/25 11:12) Other Medications ???Medication ???Instructions ???Recorded ???Confirmed ???Type iqxygyzc-wgo-Lb-FA 1 mg 1 tab PO DAILY 08/09/22 [...] Pt with C/O spotting since last night. [facility] notified in office. HcG and TV [...] Acute (9) Autism: Status: Acute (10) Congenital jtevgl-mkubykw-tiudu reflux: Status: Acute Comment: Recurrent UTI's and [...] fallen in the past year?: No 03/13/25 9572 (more content not included)... Normal [facility] hCG Titer Quant., Serumon HCG QUANT. 3759 mIU/mL High <9 non-preg [facility] Comment on above: Result Comment: Gest ational Age 0.2-1 Week: 5-50 mIU/mL 1-2 Weeks: 50-500 mIU/mL 2-3 Weeks: 100-5000 mIU/mL 3-4 Weeks: 500-10,000 mIU/mL 4-5 Weeks:1000-50,000 mIU/mL 5-6 Weeks: 10,000-100,000 mIU/mL 6-8 Weeks: 15,000-200,000 mIU/mL 2-3 Months:10,000-100,000 mIU/mL Performed By: #### L 700.8000 ####[facility] [address] [place], [place], [id number] Culture, Blood (WB)on 2024 CUB Blood cultures x2, from two different sites No growth in 5 days. Normal [facility] Comment on above: Performed By: #### L 501.0900 #### [facility] Laboratory [address] [place], [place], [id number] Urine Cultureon 01-04-2025 URC Presumptive E. coli [place] Count 25,000-50,000 Presumptive E. coli: REACTION Ampicillin [...] TMP SMX Islt BRANDI <=20 S Normal [facility] Comment on above: Performed By: #### L 501.0900 #### [facility] Laboratory [address] [place], [place], [id number] Abdomen/Pelvis W IV Cont ONL Yon 01-02-2025 Abdomen/Pelvis W IV Cont ONLY [facility] Imaging Services [address] [place], [place] [address] Abdomen/Pelvis W IV Cont ONLY MR#: [id number] Acct: [id number] Name: TEELUZ ROY Rep #: [id number] : 2000 F 24 From: Yari Reyes nd, MD PCP: Care Physician,No Primary Status: [facility] ER Study: Abdomen/Pelvis W IV Cont ONLY Date of Exam: Exam# [id number] Ordering Dr: Mendez Gardner DO PROCEDURE: ABDOMEN/PELVIS [...] recommended. 3. Diffuse hepatic steatosis. Reading Location: [facility] CC: Dr. Mendez Gardner DO; No Primary Care Physician Operator Lights: Signed Normal [facility] CBC W/Diff, Automatedon - Absolute Lymph 0.64 X10 3/uL Low 0.83-4.51 [facility] Comment on above: Order Comment: REDRA W. PREVIOUS SPECIMEN REJECTED DUE TOCLOTTED SPECIMEN. 01/02/251948 Performed By: #### L 501.0900 #### [facility] Laboratory [address] [place], [address] Absolute Neut 9.4 X10 3/uL High 2.0-7.7 [facility] Comment on above: Order Comment: REDRA W. PREVIOUS SPECIMEN REJECTED DUE TOCLOTTED SPECIMEN. 01/02/251948 Performed By: #### L 501.0900 #### [facility] Laboratory [address] [place], [address] Basophils/100 WBC (Bld) 0.1 % Normal 0-1 [facility] Comment on above: Order Comment: REDRA W. PREVIOUS SPECIMEN REJECTED DUE TOCLOTTED SPECIMEN. 01/02/251948 Performed By: #### L 501.0900 #### [facility] Laboratory [address] [place], [address] Eosinophils/100 WBC (Bld) 0.0 % Normal 0-5 [facility] Comment on above: Order Comment: REDRA W. PREVIOUS SPECIMEN REJECTED DUE TOCLOTTED SPECIMEN. 01/02/251948 Performed By: #### L 501.0900 #### [facility] Laboratory [address] [place], [address] Erythrocyte distribution width (RBC) [Ratio] 12.4 % Normal 11.6-14.6 [facility] Comment on above: Order Comment: REDRA W. PREVIOUS SPECIMEN REJECTED DUE TOCLOTTED SPECIMEN. 01/02/251948 Performed By: #### L 501.0900 #### [facility] Laboratory [address] [place], [address] Hematocrit (Bld) [Volume fraction] 41.9 % Normal 37-47 [facility] Comment on above: Order Comment: REDRA W. PREVIOUS SPECIMEN REJECTED DUE TOCLOTTED SPECIMEN. 01/02/251948 Performed By: #### L 501.0900 #### [facility] Laboratory [address] [place], [address] Hemoglobin (Bld) [Mass/Vol] 14.6 g/dL Normal 12.0-15.0 [facility] Comment on above: Order Comment: REDRA W. PREVIOUS SPECIMEN REJECTED DUE TOCLOTTED SPECIMEN. 01/02/251948 Performed By: #### L 501.0900 #### [facility] Laboratory [address] [place], [address] IG% 0.600 Normal 0.0-0.9 [facility] Comment on above: Order Comment: REDRA W. PREVIOUS SPECIMEN REJECTED DUE TOCLOTTED SPECIMEN. 01/02/251948 Result Comment: IG% - Immature Granulocytes (promyelocytes, myelocytes and metamyelocytes) > 1% indicates that a LEFT SHIFT is Present. Performed By: #### L 501.0900 #### [facility] [address] [place], [address] Lymphocytes/100 WBC (Bld) 5.9 % Low 19-41 [facility] Comment on above: Order Comment: REDRA W. PREVIOUS SPECIMEN REJECTED DUE TOCLOTTED SPECIMEN. 01/02/251948 Performed By: #### L 501.0900 #### [facility] Laboratory [address] [place], [address] MCH (RBC) [Entitic mass] 30.8 pg Normal 27.0-32.0 [facility] Comment on above: Order Comment: REDRA W. PREVIOUS SPECIMEN REJECTED DUE TOCLOTTED SPECIMEN. 01/02/251948 Performed By: #### L 501.0900 #### [facility] Laboratory [address] [place], [address] MCHC (RBC) [Mass/Vol] 34.8 g/dL Normal 32-36 [facility] Comment on above: Order Comment: REDRA W. PREVIOUS SPECIMEN REJECTED DUE TOCLOTTED SPECIMEN. 01/02/251948 Performed By: #### L 501.0900 #### [facility] Laboratory [address] [place], [address] MCV (RBC) [Entitic vol] 88.4 fL Normal 81-99 [facility] Comment on above: Order Comment: REDRA W. PREVIOUS SPECIMEN REJECTED DUE TOCLOTTED SPECIMEN. 01/02/251948 Performed By: #### L 501.0900 #### [facility] Laboratory [address] [place], [address] Monocytes/100 WBC (Bld) 5.9 % Normal 0-10 [facility] Comment on above: Order Comment: REDRA W. PREVIOUS SPECIMEN REJECTED DUE TOCLOTTED SPECIMEN. 01/02/251948 Performed By: #### L 501.0900 #### [facility] [address] [place], [address] Neutrophils/100 WBC (Bld) 87.5 % High 47-70 [facility] Comment on above: Order Comment: REDRA W. PREVIOUS SPECIMEN REJECTED DUE TOCLOTTED SPECIMEN. 01/02/251948 Performed By: #### L 501.0900 #### [facility] Laboratory [address] [place], [address] Nucleated RBC (Bld) [#/Vol] 0 10*3/uL Normal 0-5 [facility] Comment on above: Order Comment: REDRA W. PREVIOUS SPECIMEN REJECTED DUE TOCLOTTED SPECIMEN. 01/02/251948 Performed By: #### L 501.0900 #### [facility] Laboratory [address] [place], [address] Platelet mean volume (Bld) [Entitic vol] 10.2 fL Normal 6.2-12.0 [facility] Comment on above: Order Comment: REDRA W. PREVIOUS SPECIMEN REJECTED DUE TOCLOTTED SPECIMEN. 01/02/251948 Performed By: #### L 501.0900 #### [facility] Laboratory [address] [place], [address] Platelets (Bld) [#/Vol] 188 10*3/uL Normal 150-450 [facility] Comment on above: Order Comment: REDRA W. PREVIOUS SPECIMEN REJECTED DUE TOCLOTTED SPECIMEN. 01/02/251948 Performed By: #### L 501.0900 #### [facility] Laboratory [address] [place], [address] RBC (Bld) [#/Vol] 4.74 10*6/uL Normal 4.2-5.4 [facility] Comment on above: Order Comment: REDRA W. PREVIOUS SPECIMEN REJECTED DUE TOCLOTTED SPECIMEN. 01/02/251948 Performed By: #### L 501.0900 #### [facility] Laboratory [address] [place], [address] RDW SD 40.1 fl Normal 35.1-43.9 [facility] Comment on above: Order Comment: REDRA W. PREVIOUS SPECIMEN REJECTED DUE TOCLOTTED SPECIMEN. 01/02/251948 Performed By: #### L 501.0900 #### [facility] Laboratory [address] [place], [address] WBC (Bld) [#/Vol] 10.8 10*3/uL Normal 4.4-11.0 [facility] Comment on above: Order Comment: REDRA W. PREVIOUS SPECIMEN REJECTED DUE TOCLOTTED SPECIMEN. 01/02/251948 Performed By: #### L 501.0900 #### [facility] Laboratory [address] [place], [address] Absolute Neut Normal 2.0-7.7 [facility] Comment on above: Result Comment: This specimen has been REJECTED due to Laboratory criteria: Clotted. ED-ELVIN has been notified of need of recollection. 01/02/251947 Performed By: #### L 501.2450, L500.3400, L500.2500 #### [facility] [address] [place], [address] HCT Normal 37-47 [facility] Comment on above: Result Comment: This specimen has been REJECTED due to Laboratory criteria: Clotted. ED-ELVIN has been notified of need of recollection. 01/02/251947 Performed By: #### L 501.2450, L500.3400, L500.2500 #### [facility] [address] [place], [address] HGB Normal 12.0-15.0 [facility] Comment on above: Result Comment: This specimen has been REJECTED due to Laboratory criteria: Clotted. ED-ELVIN has been notified of need of recollection. 01/02/251947 Performed By: #### L 501.2450, L500.3400, L500.2500 #### [facility] Laboratory [address] [place], [address] MCH Normal 27.0-32.0 [facility] Comment on above: Result Comment: This specimen has been REJECTED due to Laboratory criteria: Clotted. ED-ELVIN has been notified of need of recollection. 01/02/251947 Performed By: #### L 501.2450, L500.3400, L500.2500 #### [facility] [address] [place], [address] MCHC Normal 32-36 [facility] Comment on above: Result Comment: This specimen has been REJECTED due to Laboratory criteria: Clotted. ED-ELVIN has been notified of need of recollection. 01/02/251947 Performed By: #### L 501.2450, L500.3400, L500.2500 #### [facility] [address] [place], [address] MCV Normal 81-99 [facility] Comment on above: Result Comment: This specimen has been REJECTED due to Laboratory criteria: Clotted. ED-ELVIN has been notified of need of recollection. 01/02/251947 Performed By: #### L 501.2450, L500.3400, L500.2500 #### [facility] [address] [place], [address] NEUT% Normal 47-70 [facility] Comment on above: Result Comment: This specimen has been REJECTED due to Laboratory criteria: Clotted. ED-ELVIN has been notified of need of recollection. 01/02/251947 Performed By: #### L 501.2450, L500.3400, L500.2500 #### [facility] [address] [place], [address] PLT Normal 150-450 [facility] Comment on above: Result Comment: This specimen has been REJECTED due to Laboratory criteria: Clotted. ED-ELVIN has been notified of need of recollection. 01/02/251947 Performed By: #### L 501.2450, L500.3400, L500.2500 #### [facility] [address] [place], [address] RBC Normal 4.2-5.4 [facility] Comment on above: Result Comment: This specimen has been REJECTED due to Laboratory criteria: Clotted. ED-ELVIN has been notified of need of recollection. 01/02/251947 Performed By: #### L 501.2450, L500.3400, L500.2500 #### [facility] [address] [place], [address] RDW CV Normal 11.6-14.6 [facility] Comment on above: Result Comment: This specimen has been REJECTED due to Laboratory criteria: Clotted. ED-ELVIN has been notified of need of recollection. 01/02/251947 Performed By: #### L 501.2450, L500.3400, L500.2500 #### [facility] [address] [place], [address] RDW SD Normal 35.1-43.9 [facility] Comment on above: Result Comment: This specimen has been REJECTED due to Laboratory criteria: Clotted. ED-ELVIN has been notified of need of recollection. 01/02/251947 Performed By: #### L 501.2450, L500.3400, L500.2500 #### [facility] [address] [place], [address] WBC Normal 4.4-11.0 [facility] Comment on above: Result Comment: This specimen has been REJECTED due to Laboratory criteria: Clotted. ED-ELVIN has been notified of need of recollection. 01/02/251947 Performed By: #### L 501.2450, L500.3400, L500.2500 #### [facility] [address] [place], [address] Comprehensive Metabolic Prof ilon 01-02-2025 Albumin [Mass/Vol] 4.5 g/dL Normal 3.5-5.0 [facility] Comment on above: Performed By: #### L 501.2450, L500.3400, L500.2500 #### [facility] [address] [place], [address] Albumin/Globulin [Mass ratio] 1.3 {ratio} Normal 0.9-2.4 [facility] Comment on above: Performed By: #### L 501.2450, L500.3400, L500.2500 #### [facility] Laboratory [address] [place], [address] ALK PHOS 69 U/L Normal 35-104 [facility] Comment on above: Performed By: #### L 501.2450, L500.3400, L500.2500 #### [facility] [address] [place], [address] ALT [Catalytic activity/Vol] 50 U/L High <=34 [facility] Comment on above: Performed By: #### L 501.2450, L500.3400, L500.2500 #### [facility] Laboratory [address] [place], [address] AST [Catalytic activity/Vol] 28 U/L Normal <=31 [facility] Comment on above: Performed By: #### L 501.2450, L500.3400, L500.2500 #### [facility] [address] [place], [address] Bilirubin [Mass/Vol] 0.96 mg/dL Normal 0.00-1.30 [facility] Comment on above: Performed By: #### L 501.2450, L500.3400, L500.2500 #### [facility] [address] [place], [address] BUN/CRE 13.3 RATIO Normal 10-20 [facility] Comment on above: Performed By: #### L 501.2450, L500.3400, L500.2500 #### [facility] [address] [place], [address] Calcium [Mass/Vol] 9.6 mg/dL Normal 7.6-11.0 [facility] Comment on above: Performed By: #### L 501.2450, L500.3400, L500.2500 #### [facility] Laboratory [address] [place], [address] Chloride [Moles/Vol] 102 mmol/L Normal 98-108 [facility] Comment on above: Performed By: #### L 501.2450, L500.3400, L500.2500 #### [facility] Laboratory [address] [place], [address] CO2 [Moles/Vol] 23.0 mmol/L Normal 21.0-32.0 [facility] Comment on above: Performed By: #### L 501.2450, L500.3400, L500.2500 #### [facility] [address] [place], [address] Creatinine [Mass/Vol] 0.93 mg/dL Normal 0.70-1.20 [facility] Comment on above: Performed By: #### L 501.2450, L500.3400, L500.2500 #### [facility] Laboratory [address] [place], [address] ECRCL 94.15 ml/min Normal 50-250 [facility] Comment on above: Performed By: #### L 501.2450, L500.3400, L500.2500 #### [facility] Laboratory [address] [place], [address] GAP 13 Normal 5-15 [facility] Comment on above: Performed By: #### L 501.2450, L500.3400, L500.2500 #### [facility] Laboratory [address] [place], [address] GFR/1.73 sq M.predicted among non-blacks MDRD (S/P/Bld) [Vol rate/Area] 87 mL/min/{1.73_m2} Normal >60 [facility] Comment on above: Result Comment: mL/m in/1.73m2 CKD-EPI Creatinine Equation (2020) Performed By: #### L 501.2450, L500.3400, L500.2500 #### [facility] Laboratory [address] [place], [address] Globulin (S) [Mass/Vol] 3.4 g/dL Normal 2.2-4.2 [facility] Comment on above: Performed By: #### L 501.2450, L500.3400, L500.2500 #### [facility] [address] [place], [address] Glucose [Mass/Vol] 109 mg/dL High 70-99 [facility] Comment on above: Performed By: #### L 501.2450, L500.3400, L500.2500 #### [facility] [address] [place], [address] Potassium [Moles/Vol] 3.4 mmol/L Normal 3.3-5.1 [facility] Comment on above: Performed By: #### L 501.2450, L500.3400, L500.2500 #### [facility] [address] [place], [address] Sodium [Moles/Vol] 138 mmol/L Normal 133-145 [facility] Comment on above: Performed By: #### L 501.2450, L500.3400, L500.2500 #### [facility] [address] [place], [address] T PROT 7.9 g/dL Normal 5.9-8.4 [facility] Comment on above: Performed By: #### L 501.2450, L500.3400, L500.2500 #### [facility] Laboratory [address] [place], [address] Urea nitrogen [Mass/Vol] 12 mg/dL Normal 4-19 [facility] Comment on above: Performed By: #### L 501.2450, L500.3400, L500.2500 #### [facility] Laboratory [address] [place], [address] Emergency Department Summary on 01-02-2025 Emergency Department Summary [facility] Medical Records Department [address] [place] [address] Emergency Department Summary 01/02/25 MR#: [id number] Acct: [id number] Name: LUZ OLIVEIRA Rep #: [id number] : 2000 24 From: Mendez Gardner DO [...] that she tried Azo at home. [facility] Medical History Lumbar radiculopathy, acute Acute lumbar myofascial strain Blunt abdominal trauma Chest wall contusion Cervical strain, acute Concussion without loss of consciousness Crushing injury of right great toe, initial encounter Congenital gcntzi-xwiiwrk-nltmp reflux Home Medications ???Medication ???Instructions ???Recorded ???Last Taken ???Type jjjkqicm-mww-Fc-FA 1 mg 1 tab PO DAILY 08/09/22 [...] (cerebral vascular accident) Mother Diabetes Surgical History [place] teeth removed Social History household members: spouse [...] following commands knew that she was at [facility] years 2024 Skin:, No rashes or [...] Respiratory Rat (more content not included)... Normal [facility] Lactic Acidon 01-02-2025 Lactate [Moles/Vol] 1.1 mmol/L Normal 0.0-2.0 [facility] Comment on above: Order Comment: Y Performed By: #### L 501.0900 #### [facility] Laboratory [address] [place], [address] Lipaseon 01-02-2025 Lipase [Catalytic activity/Vol] 19 U/L Normal 13-75 [facility] Comment on above: Result Comment: Lisa paez note: LIPASE revised reference range effective 23. New Lipase methodology. Expected to produce lower values than the previous assay method. NEW Reference Range: 13 - 75 U/L Performed By: #### L 501.2450, L500.3400, L500.2500 #### [facility] Laboratory [address] [place], [address] M100.678on 01-02-2025 M100.678 Pending SARS-CoV-2 (COVID 19) Negative INFLUENZA A Negative INFLUENZA B Negative RSV PCR Negative Normal [facility] Comment on above: Performed By: #### L 501.0900 #### [facility] Laboratory [address] [place], [address] Partial Thromboplast Timeon 01-02-2025 aPTT Coag (Bld) [Time] 33.7 s Normal 24.1-36.2 [facility] Comment on above: Performed By: #### L 501.0900 #### [facility] Laboratory [address] [place], [address] ,Serum,hCG Quali.on 01-02-2025 HCG, SERUM QUAL Negative Normal [facility] Comment on above: Performed By: #### L 501.2450, L500.3400, L500.2500 #### [facility] Laboratory [address] [place], [address] Prothrombin Time w/INRon INR Coag (PPP) [Relative time] 1.1 {INR} Normal [facility] Comment on above: Performed By: #### L 501.0900 #### [facility] Laboratory [address] [place], [address] PT Coag (PPP) [Time] 14.5 s Normal 11.7-14.9 [facility] Comment on above: Performed By: #### L 501.0900 #### [facility] Laboratory [address] [place], [address] Urinalysis, Completeon 01-02 EPI,SQUAMOUS 5-10 SEEN Normal 5-10 [facility] Comment on above: Order Comment: CLEAN CATCH Performed By: #### L 501.0900 #### [facility] Laboratory [address] [place], [address] BACTERIA 3+ /hpf Normal None Seen [facility] Comment on above: Order Comment: CLEAN CATCH Performed By: #### L 501.0900 #### [facility] Laboratory [address] [place], [address] RBC 5-10 SEEN Normal 0-5 [facility] Comment on above: Order Comment: CLEAN CATCH Performed By: #### L 501.0900 #### [facility] Laboratory [address] [place], [address] WBC >100 SEEN Normal 0-5 [facility] Comment on above: Order Comment: CLEAN CATCH Performed By: #### L 501.0900 #### [facility] Laboratory [address] [place], [address] Mucus Ql (Urine sed) 0 SEEN Normal [facility] Comment on above: Order Comment: CLEAN CATCH Performed By: #### L 501.0900 #### [facility] [address] [place], [address] XR SPINE CERVICAL AP/LATon 0 02-19-2024 XR [...] 02/19/2024 1:39:46 AM Ordering Provider: KIRSTEN Miller [facility]) B12on 10-19-2023 Cobalamin (Vitamin B12) [Mass/Vol] 279 pg/mL Normal 211-911 [facility]) Comment on above: Performed By: #### G FR, LIPID, HFP, A1C, IBC, TSH, CBC, ANEU, FT4, FERR, ADIFF, CMP, FE, VIDH, FT3 #### [place] [address] #### FOL, B12 #### [place] [address] FOLon 10-19-2023 Folate 8.29 ng/mL Normal 5.38-24.00 [facility]) Comment on above: Performed By: #### G FR, LIPID, HFP, A1C, IBC, TSH, CBC, ANEU, FT4, FERR, ADIFF, CMP, FE, VIDH, FT3 #### [place] [address] #### FOL, B12 #### [place] [address] .Auto Diffon 10-15-2023 Basophil, Absolute 0.0 10 3/mcL Normal 0.0-0.2 [facility]) Comment on above: Performed By: #### G FR, LIPID, HFP, A1C, IBC, TSH, CBC, ANEU, FT4, FERR, ADIFF, CMP, FE, VIDH, FT3 #### [address] [address] #### FOL, B12 #### [address] [address] Basophils/100 WBC (Bld) 0.2 % Normal 0.0-2.5 [facility] ([place]) Comment on above: Performed By: #### G FR, LIPID, HFP, A1C, IBC, TSH, CBC, ANEU, FT4, FERR, ADIFF, CMP, FE, VIDH, FT3 #### [address] [address] #### FOL, B12 #### [address] [address] Eosinophil, Absolute 0.0 10 3/mcL Normal 0.0-0.4 [facility] ([place]) Comment on above: Performed By: #### G FR, LIPID, HFP, A1C, IBC, TSH, CBC, ANEU, FT4, FERR, ADIFF, CMP, FE, VIDH, FT3 #### [address] [address] #### FOL, B12 #### [address] [address] Eosinophils/100 WBC (Bld) 0.6 % Normal 0.0-7.0 [facility] ([place]) Comment on above: Performed By: #### G FR, LIPID, HFP, A1C, IBC, TSH, CBC, ANEU, FT4, FERR, ADIFF, CMP, FE, VIDH, FT3 #### [address] [address] #### FOL, B12 #### [address] [address] Lymphocyte, Absolute 1.5 10 3/mcL Normal 0.8-3.9 [facility] ([place] Comment on above: Performed By: #### G FR, LIPID, HFP, A1C, IBC, TSH, CBC, ANEU, FT4, FERR, ADIFF, CMP, FE, VIDH, FT3 #### [address] [address] #### FOL, B12 #### [address] [address] Lymphocytes/100 WBC (Bld) 23.2 % Normal 10.0-50.0 [facility] ([place]) Comment on above: Performed By: #### G FR, LIPID, HFP, A1C, IBC, TSH, CBC, ANEU, FT4, FERR, ADIFF, CMP, FE, VIDH, FT3 #### [address] [address] #### FOL, B12 #### [address] [address] Monocyte, Absolute 0.4 10 3/mcL Normal 0.2-1.0 [facility] ([place]) Comment on above: Performed By: #### G FR, LIPID, HFP, A1C, IBC, TSH, CBC, ANEU, FT4, FERR, ADIFF, CMP, FE, VIDH, FT3 #### [address] [address] #### FOL, B12 #### [address] [address] Monocytes/100 WBC (Bld) 5.6 % Normal 1.7-13.0 [facility] ([place]) Comment on above: Performed By: #### G FR, LIPID, HFP, A1C, IBC, TSH, CBC, ANEU, FT4, FERR, ADIFF, CMP, FE, VIDH, FT3 #### [address] [address] #### FOL, B12 #### [address] [address] Neutrophils/100 WBC (Bld) 70.4 % Normal 37.0-80.0 [facility] ([place]) Comment on above: Performed By: #### G FR, LIPID, HFP, A1C, IBC, TSH, CBC, ANEU, FT4, FERR, ADIFF, CMP, FE, VIDH, FT3 #### [address] [address] #### FOL, B12 #### [address] [address] .GFRon 10-15-2023 GFR Non- 73 ml/min/1.73sqm [facility] ([place]) Comment on above: Result Comment: GFR Population [...] FERR, ADIFF, CMP, FE, VIDH, FT3 #### [address] [address] #### FOL, B12 #### [address] [address] GFR 89 ml/min/1.73sqm Normal [facility] ([place]) Comment on above: Result Comment: GFR Population [...] FERR, ADIFF, CMP, FE, VIDH, FT3 #### [address] [address] #### FOL, B12 #### [place] [address] .NEUABSon 10-15-2023 Neutrophil, Absolute 4.5 10 3/mcL Normal 2.9-6.2 [facility] ([place]) Comment on above: Performed By: #### G FR, LIPID, HFP, A1C, IBC, TSH, CBC, ANEU, FT4, FERR, ADIFF, CMP, FE, VIDH, FT3 #### [place] [address] #### FOL, B12 #### [place] [address] A1Con 10-15-2023 HbA1c (Bld) [Mass fraction] 4.9 % Normal 4.3-6.4 [facility] ([place]) Comment on above: Performed By: #### G FR, LIPID, HFP, A1C, IBC, TSH, CBC, ANEU, FT4, FERR, ADIFF, CMP, FE, VIDH, FT3 #### [place] [address] #### FOL, B12 #### [place] [address] CBCon 10-15-2023 Erythrocyte distribution width (RBC) [Ratio] 14.1 % Normal 11.5-14.5 [facility] ([place]) Comment on above: Performed By: #### G FR, LIPID, HFP, A1C, IBC, TSH, CBC, ANEU, FT4, FERR, ADIFF, CMP, FE, VIDH, FT3 #### [place] [address] #### FOL, B12 #### [place] [address] Hematocrit (Bld) [Volume fraction] 42.4 % Normal 37.0-47.0 [facility] ([place]) Comment on above: Performed By: #### G FR, LIPID, HFP, A1C, IBC, TSH, CBC, ANEU, FT4, FERR, ADIFF, CMP, FE, VIDH, FT3 #### [address] [address] #### FOL, B12 #### [address] [address] Hgb 14.5 G/dL Normal 12.0-16.0 [facility] ([place]) Comment on above: Performed By: #### G FR, LIPID, HFP, A1C, IBC, TSH, CBC, ANEU, FT4, FERR, ADIFF, CMP, FE, VIDH, FT3 #### [address] [address] #### FOL, B12 #### [address] [address] MCH (RBC) [Entitic mass] 30.8 pg Normal 27.0-31.2 [facility] ([place]) Comment on above: Performed By: #### G FR, LIPID, HFP, A1C, IBC, TSH, CBC, ANEU, FT4, FERR, ADIFF, CMP, FE, VIDH, FT3 #### [address] [address] #### FOL, B12 #### [address] [address] MCHC 34.2 G/dL Normal 33.0-37.0 [facility] ([place]) Comment on above: Performed By: #### G FR, LIPID, HFP, A1C, IBC, TSH, CBC, ANEU, FT4, FERR, ADIFF, CMP, FE, VIDH, FT3 #### [address] [address] #### FOL, B12 #### [address] [address] MCV (RBC) [Entitic vol] 90.3 fL Normal 80.0-94.0 [facility] ([place]) Comment on above: Performed By: #### G FR, LIPID, HFP, A1C, IBC, TSH, CBC, ANEU, FT4, FERR, ADIFF, CMP, FE, VIDH, FT3 #### [address] [address] #### FOL, B12 #### [address] [address] Platelet 237 10 3/mcL Normal 130-400 [facility] ([place]) Comment on above: Performed By: #### G FR, LIPID, HFP, A1C, IBC, TSH, CBC, ANEU, FT4, FERR, ADIFF, CMP, FE, VIDH, FT3 #### [address] [address] #### FOL, B12 #### [address] [address] Platelet mean volume (Bld) [Entitic vol] 8.6 fL Normal 7.4-10.4 [facility] ([place]) Comment on above: Performed By: #### G FR, LIPID, HFP, A1C, IBC, TSH, CBC, ANEU, FT4, FERR, ADIFF, CMP, FE, VIDH, FT3 #### [address] [address] #### FOL, B12 #### [address] [address] RBC 4.69 10 6/mcL Normal 4.20-5.40 [facility] ([place]) Comment on above: Performed By: #### G FR, LIPID, HFP, A1C, IBC, TSH, CBC, ANEU, FT4, FERR, ADIFF, CMP, FE, VIDH, FT3 #### [address] [address] #### FOL, B12 #### [address] [address] WBC 6.4 10 3/mcL Normal 4.6-10.8 [facility] ([place]) Comment on above: Performed By: #### G FR, LIPID, HFP, A1C, IBC, TSH, CBC, ANEU, FT4, FERR, ADIFF, CMP, FE, VIDH, FT3 #### [address] [address] #### FOL, B12 #### [address] [address] CMPon 10-15-2023 BUN/Creatinine Ratio 17 ratio Normal 7-27 [facility] ([place] Comment on above: Performed By: #### G FR, LIPID, HFP, A1C, IBC, TSH, CBC, ANEU, FT4, FERR, ADIFF, CMP, FE, VIDH, FT3 #### [address] [address] #### FOL, B12 #### [address] [address] Calcium [Mass/Vol] 9.5 mg/dL Normal 8.4-10.2 [facility] [place] Comment on above: Performed By: #### G FR, LIPID, HFP, A1C, IBC, TSH, CBC, ANEU, FT4, FERR, ADIFF, CMP, FE, VIDH, FT3 #### [address] [address] #### FOL, B12 #### [address] [address] Chloride [Moles/Vol] 101 mmol/L Normal 98-107 [facility] ([place]) Comment on above: Performed By: #### G FR, LIPID, HFP, A1C, IBC, TSH, CBC, ANEU, FT4, FERR, ADIFF, CMP, FE, VIDH, FT3 #### [address] [address] #### FOL, B12 #### [address] [address] CO2 [Moles/Vol] 27 mmol/L Normal 22-29 [facility] ([place]) Comment on above: Performed By: #### G FR, LIPID, HFP, A1C, IBC, TSH, CBC, ANEU, FT4, FERR, ADIFF, CMP, FE, VIDH, FT3 #### [address] [address] #### FOL, B12 #### [address] [address] Creatinine [Mass/Vol] 0.94 mg/dL Normal 0.55-1.02 [facility] ([place]) Comment on above: Performed By: #### G FR, LIPID, HFP, A1C, IBC, TSH, CBC, ANEU, FT4, FERR, ADIFF, CMP, FE, VIDH, FT3 #### [address] [address] #### FOL, B12 #### [address] [address] Electrolyte Balance 13.0 mEq/L Normal 4.0-15.0 [facility] [place] Comment on above: Performed By: #### G FR, LIPID, HFP, A1C, IBC, TSH, CBC, ANEU, FT4, FERR, ADIFF, CMP, FE, VIDH, FT3 #### [address] [address] #### FOL, B12 #### [address] [address] Glucose [Mass/Vol] 92 mg/dL Normal 70-105 [facility] [place] Comment on above: Performed By: #### G FR, LIPID, HFP, A1C, IBC, TSH, CBC, ANEU, FT4, FERR, ADIFF, CMP, FE, VIDH, FT3 #### [address] [address] #### FOL, B12 #### [address] [address] Potassium [Moles/Vol] 4.2 mmol/L Normal 3.5-5.1 [facility] ([place]) Comment on above: Performed By: #### G FR, LIPID, HFP, A1C, IBC, TSH, CBC, ANEU, FT4, FERR, ADIFF, CMP, FE, VIDH, FT3 #### [address] [address] #### FOL, B12 #### [address] [address] Sodium [Moles/Vol] 141 mmol/L Normal 136-145 [facility] [place] Comment on above: Performed By: #### G FR, LIPID, HFP, A1C, IBC, TSH, CBC, ANEU, FT4, FERR, ADIFF, CMP, FE, VIDH, FT3 #### [address] [address] #### FOL, B12 #### [address] [address] Urea nitrogen [Mass/Vol] 16 mg/dL Normal 7-18 [facility] ([place]) Comment on above: Performed By: #### G FR, LIPID, HFP, A1C, IBC, TSH, CBC, ANEU, FT4, FERR, ADIFF, CMP, FE, VIDH, FT3 #### [address] [address] #### FOL, B12 #### [address] [address] FEon 10-15-2023 Iron [Mass/Vol] 141 ug/dL Normal 50-170 [facility] ([place]) Comment on above: Performed By: #### G FR, LIPID, HFP, A1C, IBC, TSH, CBC, ANEU, FT4, FERR, ADIFF, CMP, FE, VIDH, FT3 #### [address] [address] #### FOL, B12 #### [address] [address] Heidi 10-15-2023 Ferritin [Mass/Vol] 60.0 ng/mL Normal 8.0-252.0 [facility] [place] Comment on above: Performed By: #### G FR, LIPID, HFP, A1C, IBC, TSH, CBC, ANEU, FT4, FERR, ADIFF, CMP, FE, VIDH, FT3 #### [address] [address] #### FOL, B12 #### [address] [address] FT3on 10-15-2023 Free T3 [Mass/Vol] 3.26 pg/mL Normal 2.30-4.00 [facility] [place] Comment on above: Performed By: #### G FR, LIPID, HFP, A1C, IBC, TSH, CBC, ANEU, FT4, FERR, ADIFF, CMP, FE, VIDH, FT3 #### [address] [address] #### FOL, B12 #### [place] [address] FT4on 10-15-2023 Free T4 [Mass/Vol] 1.15 ng/dL Normal 0.76-1.46 [facility] [place] Comment on above: Performed By: #### G FR, LIPID, HFP, A1C, IBC, TSH, CBC, ANEU, FT4, FERR, ADIFF, CMP, FE, VIDH, FT3 #### [address] [address] #### FOL, B12 #### [place] [address] HFPon 10-15-2023 Bili Indirect 0.4 mg/dL Normal [facility] ([place]) Comment on above: Performed By: #### G FR, LIPID, HFP, A1C, IBC, TSH, CBC, ANEU, FT4, FERR, ADIFF, CMP, FE, VIDH, FT3 #### [address] [address] #### FOL, B12 #### [place] [address] Albumin Level 4.0 G/dL Normal 3.5-5.0 [facility] ([place]) Comment on above: Performed By: #### G FR, LIPID, HFP, A1C, IBC, TSH, CBC, ANEU, FT4, FERR, ADIFF, CMP, FE, VIDH, FT3 #### [address] [address] #### FOL, B12 #### [place] [address] Albumin/Globulin [Mass ratio] 1.1 {ratio} Normal 1.1-2.5 [facility] ([place]) Comment on above: Performed By: #### G FR, LIPID, HFP, A1C, IBC, TSH, CBC, ANEU, FT4, FERR, ADIFF, CMP, FE, VIDH, FT3 #### [address] [address] #### FOL, B12 #### [place] [address] ALP [Catalytic activity/Vol] 91 U/L Normal 40-135 [facility] ([place]) Comment on above: Performed By: #### G FR, LIPID, HFP, A1C, IBC, TSH, CBC, ANEU, FT4, FERR, ADIFF, CMP, FE, VIDH, FT3 #### [place] [address] #### FOL, B12 #### [place] [address] ALT [Catalytic activity/Vol] 25 U/L Normal 14-59 [facility] ([place]) Comment on above: Performed By: #### G FR, LIPID, HFP, A1C, IBC, TSH, CBC, ANEU, FT4, FERR, ADIFF, CMP, FE, VIDH, FT3 #### [place] [address] #### FOL, B12 #### [place] [address] AST [Catalytic activity/Vol] 15 U/L Normal 10-40 [facility] ([place]) Comment on above: Performed By: #### G FR, LIPID, HFP, A1C, IBC, TSH, CBC, ANEU, FT4, FERR, ADIFF, CMP, FE, VIDH, FT3 #### [place] [address] #### FOL, B12 #### [place] [address] Bili Direct 0.2 mg/dL Normal 0.0-0.2 [facility] ([place]) Comment on above: Result Comment: Use of this assay is not recommended for patients undergoing treatment with eltrombopag due to the potential for falsely elevated results. Performed By: #### G FR, LIPID, HFP, A1C, IBC, TSH, CBC, ANEU, FT4, FERR, ADIFF, CMP, FE, VIDH, FT3 #### [address] [address] #### FOL, B12 #### [place] [address] Bili Total 0.6 mg/dL Normal 0.2-1.0 [facility] ([place]) Comment on above: Result Comment: Use of this assay is not recommended for patients undergoing treatment with eltrombopag due to the potential for falsely elevated results. Performed By: #### G FR, LIPID, HFP, A1C, IBC, TSH, CBC, ANEU, FT4, FERR, ADIFF, CMP, FE, VIDH, FT3 #### [place] [address] #### FOL, B12 #### [place] [address] Globulin 3.7 G/dL Normal [facility] ([place]) Comment on above: Performed By: #### G FR, LIPID, HFP, A1C, IBC, TSH, CBC, ANEU, FT4, FERR, ADIFF, CMP, FE, VIDH, FT3 #### [address] [address] #### FOL, B12 #### [place] [address] Total Protein 7.7 G/dL Normal 6.4-8.2 [facility] ([place]) Comment on above: Performed By: #### G FR, LIPID, HFP, A1C, IBC, TSH, CBC, ANEU, FT4, FERR, ADIFF, CMP, FE, VIDH, FT3 #### [place] [address] #### FOL, B12 #### [place] [address] IBCon 10-15-2023 TIBC 330 mcg/dL Normal 250-450 [facility] ([place]) Comment on above: Performed By: #### G FR, LIPID, HFP, A1C, IBC, TSH, CBC, ANEU, FT4, FERR, ADIFF, CMP, FE, VIDH, FT3 #### [facility] [address], [place] [address] #### FOL, B12 #### [place] [address] LABORATORYOrdered By: SYSTEM SYSTEM on 10-15-2023 25-hydroxyvitamin [...] [Mass/Vol] 172 mg/dL Normal 0-200 [facility] ([place]) Comment on above: Result Comment: Chol esterol Reference Interval: Less than 200 Desirable 200-239 Borderline high risk 240 and above High risk Performed By: #### G FR, LIPID, HFP, A1C, IBC, TSH, CBC, ANEU, FT4, FERR, ADIFF, CMP, FE, VIDH, FT3 #### [address] [address] #### FOL, B12 #### [address] [address] Cholesterol in HDL [Mass/Vol] 66 mg/dL High 40-60 [facility] ([place]) Comment on above: Performed By: #### G FR, LIPID, HFP, A1C, IBC, TSH, CBC, ANEU, FT4, FERR, ADIFF, CMP, FE, VIDH, FT3 #### [address] [address] #### FOL, B12 #### [address] [address] Cholesterol in LDL [Mass/Vol] 80 mg/dL Normal 0-130 [facility] ([place]) Comment on above: Performed By: #### G FR, LIPID, HFP, A1C, IBC, TSH, CBC, ANEU, FT4, FERR, ADIFF, CMP, FE, VIDH, FT3 #### [address] [address] #### FOL, B12 #### [address] [address] Triglyceride [Mass/Vol] 132 mg/dL Normal 0-150 [facility] ([place]) Comment on above: Result Comment: Trig lyceride Reference Interval: Less than 150 Normal 150-199 Borderline high risk 200-499 High risk 500 or higher Very high risk Performed By: #### G FR, LIPID, HFP, A1C, IBC, TSH, CBC, ANEU, FT4, FERR, ADIFF, CMP, FE, VIDH, FT3 #### [address] [address] #### FOL, B12 #### [place] [address] Laboratory - Chemistry and C hemistry - [...] Qn 1.13 m[IU]/L Normal 0.36-3.74 [facility] ([place]) Comment on above: Performed By: #### G FR, LIPID, HFP, A1C, IBC, TSH, CBC, ANEU, FT4, FERR, ADIFF, CMP, FE, VIDH, FT3 #### [address] [address] #### FOL, B12 #### [place] [address] UDRUGon 10-15-2023 Amphetamine (u) Negative Normal Negative [facility] ([place]) Comment on above: Performed By: #### G FR, LIPID, HFP, A1C, IBC, TSH, CBC, ANEU, FT4, FERR, ADIFF, CMP, FE, VIDH, FT3 #### [address] [address] #### FOL, B12 #### [place] [address] Barbiturate (u) Negative Normal Negative [facility] ([place]) Comment on above: Performed By: #### G FR, LIPID, HFP, A1C, IBC, TSH, CBC, ANEU, FT4, FERR, ADIFF, CMP, FE, VIDH, FT3 #### [place] [address] #### FOL, B12 #### [place] [address] Benzodiazepine (u) Negative Normal Negative [facility] [place] Comment on above: Performed By: #### G FR, LIPID, HFP, A1C, IBC, TSH, CBC, ANEU, FT4, FERR, ADIFF, CMP, FE, VIDH, FT3 #### [address] [address] #### FOL, B12 #### [place] [address] Cannabinoid (u) Negative Normal Negative [facility] ([place]) Comment on above: Performed By: #### G FR, LIPID, HFP, A1C, IBC, TSH, CBC, ANEU, FT4, FERR, ADIFF, CMP, FE, VIDH, FT3 #### [address] [address] #### FOL, B12 #### [place] [address] Cocaine Ql (U) Negative Normal Negative [facility] ([place]) Comment on above: Performed By: #### G FR, LIPID, HFP, A1C, IBC, TSH, CBC, ANEU, FT4, FERR, ADIFF, CMP, FE, VIDH, FT3 #### [address] [address] #### FOL, B12 #### [address] [address] Methadone Ql (U) Negative Normal Negative [facility] ([place]) Comment on above: Performed By: #### G FR, LIPID, HFP, A1C, IBC, TSH, CBC, ANEU, FT4, FERR, ADIFF, CMP, FE, VIDH, FT3 #### [address] [address] #### FOL, B12 #### [place] [address] Opiate (u) Negative Normal Negative [facility] ([place]) Comment on above: Performed By: #### G FR, LIPID, HFP, A1C, IBC, TSH, CBC, ANEU, FT4, FERR, ADIFF, CMP, FE, VIDH, FT3 #### [address] [address] #### FOL, B12 #### [place] [address] PCP (u) Negative Normal Negative [facility] ([place]) Comment on above: Performed By: #### G FR, LIPID, HFP, A1C, IBC, TSH, CBC, ANEU, FT4, FERR, ADIFF, CMP, FE, VIDH, FT3 #### [address] [address] #### FOL, B12 #### [place] [address] Urine Drugs screened: See Below Normal [facility] ([place]) Comment on above: Result Comment: This [...] FERR, ADIFF, CMP, FE, VIDH, FT3 #### [address] [address] #### FOL, B12 #### [place] [address] VIDHon 10-15-2023 Vit. D 25-Hydroxy 12.2 ng/mL Normal [facility] ([place]) Comment on above: Result Comment: Inte rpretive Values Based on Total 25(OH) Vitamin D: Deficient <20 ng/mL Insufficient 20 - <30 ng/mL Sufficient 30-100 ng/mL Performed By: #### G FR, LIPID, HFP, A1C, IBC, TSH, CBC, ANEU, FT4, FERR, ADIFF, CMP, FE, VIDH, FT3 #### [place] [address] #### FOL, B12 #### [place] [address] .Auto Diffon 03-31-2023 Basophil, Absolute 0.0 10 3/mcL Normal 0.0-0.2 [facility] ([place] Comment on above: Performed By: #### G FR, LIPID, HFP, A1C, IBC, TSH, CBC, ANEU, FT4, FERR, ADIFF, CMP, FE, VIDH, FT3 #### [place] [address] #### FOL, B12 #### [address] [address] Basophils/100 WBC (Bld) 0.1 % Normal 0.0-2.5 [facility] ([place]) Comment on above: Performed By: #### G FR, LIPID, HFP, A1C, IBC, TSH, CBC, ANEU, FT4, FERR, ADIFF, CMP, FE, VIDH, FT3 #### [place] [address] #### FOL, B12 #### [address] [address] Eosinophil, Absolute 0.0 10 3/mcL Normal 0.0-0.4 [facility] ([place] Comment on above: Performed By: #### G FR, LIPID, HFP, A1C, IBC, TSH, CBC, ANEU, FT4, FERR, ADIFF, CMP, FE, VIDH, FT3 #### [address] [address] #### FOL, B12 #### [address] [address] Eosinophils/100 WBC (Bld) 0.0 % Normal 0.0-7.0 [facility] ([place]) Comment on above: Performed By: #### G FR, LIPID, HFP, A1C, IBC, TSH, CBC, ANEU, FT4, FERR, ADIFF, CMP, FE, VIDH, FT3 #### [address] [address] #### FOL, B12 #### [address] [address] Lymphocyte, Absolute 1.2 10 3/mcL Normal 0.8-3.9 [facility] ([place] Comment on above: Performed By: #### G FR, LIPID, HFP, A1C, IBC, TSH, CBC, ANEU, FT4, FERR, ADIFF, CMP, FE, VIDH, FT3 #### [address] [address] #### FOL, B12 #### [address] [address] Lymphocytes/100 WBC (Bld) 11.4 % Normal 10.0-50.0 [facility] ([place]) Comment on above: Performed By: #### G FR, LIPID, HFP, A1C, IBC, TSH, CBC, ANEU, FT4, FERR, ADIFF, CMP, FE, VIDH, FT3 #### [address] [address] #### FOL, B12 #### [address] [address] Monocyte, Absolute 0.8 10 3/mcL Normal 0.2-1.0 [facility] ([place] Comment on above: Performed By: #### G FR, LIPID, HFP, A1C, IBC, TSH, CBC, ANEU, FT4, FERR, ADIFF, CMP, FE, VIDH, FT3 #### [address] [address] #### FOL, B12 #### [address] [address] Monocytes/100 WBC (Bld) 7.6 % Normal 1.7-13.0 [facility] ([place]) Comment on above: Performed By: #### G FR, LIPID, HFP, A1C, IBC, TSH, CBC, ANEU, FT4, FERR, ADIFF, CMP, FE, VIDH, FT3 #### [address] [address] #### FOL, B12 #### [address] [address] Neutrophils/100 WBC (Bld) 80.9 % High 37.0-80.0 [facility] ([place]) Comment on above: Performed By: #### G FR, LIPID, HFP, A1C, IBC, TSH, CBC, ANEU, FT4, FERR, ADIFF, CMP, FE, VIDH, FT3 #### [address] [address] #### FOL, B12 #### [address] [address] .NEUABSon 03-31-2023 Neutrophil, Absolute 8.8 10 3/mcL High 2.9-6.2 [facility] ([place] Comment on above: Performed By: #### G FR, LIPID, HFP, A1C, IBC, TSH, CBC, ANEU, FT4, FERR, ADIFF, CMP, FE, VIDH, FT3 #### [address] [address] #### FOL, B12 #### [address] [address] CBCon 03-31-2023 Erythrocyte distribution width (RBC) [Ratio] 13.9 % Normal 11.5-14.5 [facility] ([place]) Comment on above: Performed By: #### G FR, LIPID, HFP, A1C, IBC, TSH, CBC, ANEU, FT4, FERR, ADIFF, CMP, FE, VIDH, FT3 #### [address] [address] #### FOL, B12 #### [address] [address] Hematocrit (Bld) [Volume fraction] 33.1 % Low 37.0-47.0 [facility] ([place]) Comment on above: Performed By: #### G FR, LIPID, HFP, A1C, IBC, TSH, CBC, ANEU, FT4, FERR, ADIFF, CMP, FE, VIDH, FT3 #### [address] [address] #### FOL, B12 #### [place] [address] Hgb 11.5 G/dL Low 12.0-16.0 [facility] ([place]) Comment on above: Performed By: #### G FR, LIPID, HFP, A1C, IBC, TSH, CBC, ANEU, FT4, FERR, ADIFF, CMP, FE, VIDH, FT3 #### [address] [address] #### FOL, B12 #### [address] [address] MCH (RBC) [Entitic mass] 32.3 pg High 27.0-31.2 [facility] ([place]) Comment on above: Performed By: #### G FR, LIPID, HFP, A1C, IBC, TSH, CBC, ANEU, FT4, FERR, ADIFF, CMP, FE, VIDH, FT3 #### [address] [address] #### FOL, B12 #### [address] [address] MCHC 34.7 G/dL Normal 33.0-37.0 [facility] ([place]) Comment on above: Performed By: #### G FR, LIPID, HFP, A1C, IBC, TSH, CBC, ANEU, FT4, FERR, ADIFF, CMP, FE, VIDH, FT3 #### [address] [address] #### FOL, B12 #### [address] [address] MCV (RBC) [Entitic vol] 93.0 fL Normal 80.0-94.0 [facility] ([place]) Comment on above: Performed By: #### G FR, LIPID, HFP, A1C, IBC, TSH, CBC, ANEU, FT4, FERR, ADIFF, CMP, FE, VIDH, FT3 #### [address] [address] #### FOL, B12 #### [place] [address] Platelet 155 10 3/mcL Normal 130-400 [facility] ([place]) Comment on above: Performed By: #### G FR, LIPID, HFP, A1C, IBC, TSH, CBC, ANEU, FT4, FERR, ADIFF, CMP, FE, VIDH, FT3 #### [place] [address] #### FOL, B12 #### [address] [address] Platelet mean volume (Bld) [Entitic vol] 9.3 fL Normal 7.4-10.4 [facility] ([place]) Comment on above: Performed By: #### G FR, LIPID, HFP, A1C, IBC, TSH, CBC, ANEU, FT4, FERR, ADIFF, CMP, FE, VIDH, FT3 #### [place] [address] #### FOL, B12 #### [address] [address] RBC 3.55 10 6/mcL Low 4.20-5.40 [facility] ([place]) Comment on above: Performed By: #### G FR, LIPID, HFP, A1C, IBC, TSH, CBC, ANEU, FT4, FERR, ADIFF, CMP, FE, VIDH, FT3 #### [address] [address] #### FOL, B12 #### [address] [address] WBC 10.9 10 3/mcL High 4.6-10.8 [facility] ([place]) Comment on above: Performed By: #### G FR, LIPID, HFP, A1C, IBC, TSH, CBC, ANEU, FT4, FERR, ADIFF, CMP, FE, VIDH, FT3 #### [place] [id number] [place], [place] [address] #### FOL, B12 #### [address] [address] LABORATORYOrdered By: Billie Ibarra on 03-31-2023 Basophil, [...] Ql (S) Non-Reactive Normal Non-Reactive [facility] ([place]) Comment on above: Result Comment: The RPR [...] FERR, ADIFF, CMP, FE, VIDH, FT3 #### [address] [address] #### FOL, B12 #### [address] [address] .Auto Diffon 03-30-2023 Basophil, Absolute 0.0 10 3/mcL Normal 0.0-0.2 [facility] ([place]) Comment on above: Performed By: #### G FR, LIPID, HFP, A1C, IBC, TSH, CBC, ANEU, FT4, FERR, ADIFF, CMP, FE, VIDH, FT3 #### [address] [address] #### FOL, B12 #### [address] [address] Basophils/100 WBC (Bld) 0.1 % Normal 0.0-2.5 [facility] ([place]) Comment on above: Performed By: #### G FR, LIPID, HFP, A1C, IBC, TSH, CBC, ANEU, FT4, FERR, ADIFF, CMP, FE, VIDH, FT3 #### [address] [address] #### FOL, B12 #### [address] [address] Eosinophil, Absolute 0.0 10 3/mcL Normal 0.0-0.4 [facility] ([place]) Comment on above: Performed By: #### G FR, LIPID, HFP, A1C, IBC, TSH, CBC, ANEU, FT4, FERR, ADIFF, CMP, FE, VIDH, FT3 #### [address] [address] #### FOL, B12 #### [address] [address] Eosinophils/100 WBC (Bld) 0.2 % Normal 0.0-7.0 [facility] ([place]) Comment on above: Performed By: #### G FR, LIPID, HFP, A1C, IBC, TSH, CBC, ANEU, FT4, FERR, ADIFF, CMP, FE, VIDH, FT3 #### [address] [address] #### FOL, B12 #### [address] [address] Lymphocyte, Absolute 1.8 10 3/mcL Normal 0.8-3.9 [facility] ([place] Comment on above: Performed By: #### G FR, LIPID, HFP, A1C, IBC, TSH, CBC, ANEU, FT4, FERR, ADIFF, CMP, FE, VIDH, FT3 #### [address] [address] #### FOL, B12 #### [address] [address] Lymphocytes/100 WBC (Bld) 16.8 % Normal 10.0-50.0 [facility] ([place]) Comment on above: Performed By: #### G FR, LIPID, HFP, A1C, IBC, TSH, CBC, ANEU, FT4, FERR, ADIFF, CMP, FE, VIDH, FT3 #### [address] [address] #### FOL, B12 #### [address] [address] Monocyte, Absolute 0.8 10 3/mcL Normal 0.2-1.0 [facility] ([place]) Comment on above: Performed By: #### G FR, LIPID, HFP, A1C, IBC, TSH, CBC, ANEU, FT4, FERR, ADIFF, CMP, FE, VIDH, FT3 #### [address] [address] #### FOL, B12 #### [address] [address] Monocytes/100 WBC (Bld) 7.2 % Normal 1.7-13.0 [facility] ([place]) Comment on above: Performed By: #### G FR, LIPID, HFP, A1C, IBC, TSH, CBC, ANEU, FT4, FERR, ADIFF, CMP, FE, VIDH, FT3 #### [address] [address] #### FOL, B12 #### [address] [address] Neutrophils/100 WBC (Bld) 75.7 % Normal 37.0-80.0 [facility] ([place]) Comment on above: Performed By: #### G FR, LIPID, HFP, A1C, IBC, TSH, CBC, ANEU, FT4, FERR, ADIFF, CMP, FE, VIDH, FT3 #### [place] [address] #### FOL, B12 #### [place] [address] .NEUABSon 03-30-2023 Neutrophil, Absolute 8.2 10 3/mcL High 2.9-6.2 [facility] ([place]) Comment on above: Performed By: #### G FR, LIPID, HFP, A1C, IBC, TSH, CBC, ANEU, FT4, FERR, ADIFF, CMP, FE, VIDH, FT3 #### [place] [address] #### FOL, B12 #### [place] [address] CBCon 03-30-2023 Erythrocyte distribution width (RBC) [Ratio] 13.8 % Normal 11.5-14.5 [facility] ([place]) Comment on above: Performed By: #### G FR, LIPID, HFP, A1C, IBC, TSH, CBC, ANEU, FT4, FERR, ADIFF, CMP, FE, VIDH, FT3 #### [place] [address] #### FOL, B12 #### [place] [address] Hematocrit (Bld) [Volume fraction] 37.2 % Normal 37.0-47.0 [facility] ([place]) Comment on above: Performed By: #### G FR, LIPID, HFP, A1C, IBC, TSH, CBC, ANEU, FT4, FERR, ADIFF, CMP, FE, VIDH, FT3 #### [place] [address] #### FOL, B12 #### [place] [address] Hgb 12.9 G/dL Normal 12.0-16.0 [facility] ([place]) Comment on above: Performed By: #### G FR, LIPID, HFP, A1C, IBC, TSH, CBC, ANEU, FT4, FERR, ADIFF, CMP, FE, VIDH, FT3 #### [address] [address] #### FOL, B12 #### [address] [address] MCH (RBC) [Entitic mass] 32.2 pg High 27.0-31.2 [facility] ([place]) Comment on above: Performed By: #### G FR, LIPID, HFP, A1C, IBC, TSH, CBC, ANEU, FT4, FERR, ADIFF, CMP, FE, VIDH, FT3 #### [address] [address] #### FOL, B12 #### [address] [address] MCHC 34.7 G/dL Normal 33.0-37.0 [facility] ([place]) Comment on above: Performed By: #### G FR, LIPID, HFP, A1C, IBC, TSH, CBC, ANEU, FT4, FERR, ADIFF, CMP, FE, VIDH, FT3 #### [address] [address] #### FOL, B12 #### [address] [address] MCV (RBC) [Entitic vol] 92.8 fL Normal 80.0-94.0 [facility] ([place]) Comment on above: Performed By: #### G FR, LIPID, HFP, A1C, IBC, TSH, CBC, ANEU, FT4, FERR, ADIFF, CMP, FE, VIDH, FT3 #### [address] [address] #### FOL, B12 #### [address] [address] Platelet 169 10 3/mcL Normal 130-400 [facility] ([place]) Comment on above: Performed By: #### G FR, LIPID, HFP, A1C, IBC, TSH, CBC, ANEU, FT4, FERR, ADIFF, CMP, FE, VIDH, FT3 #### [address] [address] #### FOL, B12 #### [address] [address] Platelet mean volume (Bld) [Entitic vol] 9.7 fL Normal 7.4-10.4 [facility] ([place]) Comment on above: Performed By: #### G FR, LIPID, HFP, A1C, IBC, TSH, CBC, ANEU, FT4, FERR, ADIFF, CMP, FE, VIDH, FT3 #### [address] [address] #### FOL, B12 #### [address] [address] RBC 4.01 10 6/mcL Low 4.20-5.40 [facility] ([place]) Comment on above: Performed By: #### G FR, LIPID, HFP, A1C, IBC, TSH, CBC, ANEU, FT4, FERR, ADIFF, CMP, FE, VIDH, FT3 #### [address] [address] #### FOL, B12 #### [address] [address] WBC 10.8 10 3/mcL Normal 4.6-10.8 [facility] ([place]) Comment on above: Performed By: #### G FR, LIPID, HFP, A1C, IBC, TSH, CBC, ANEU, FT4, FERR, ADIFF, CMP, FE, VIDH, FT3 #### [address] [address] #### FOL, B12 #### [address] [address] Gel ABOon 03-30-2023 ABO/Rh Interp Positive Invalid Interpretation Code [facility] ([place]) Comment on above: Performed By: #### G FR, LIPID, HFP, A1C, IBC, TSH, CBC, ANEU, FT4, FERR, ADIFF, CMP, FE, VIDH, FT3 #### [address] [address] #### FOL, B12 #### [facility] [address] [place] [address] Gel ABSon 03-30-2023 Antibody Screen Gel Negative Normal [facility] [place] Comment on above: Performed By: #### G FR, LIPID, HFP, A1C, IBC, TSH, CBC, ANEU, FT4, FERR, ADIFF, CMP, FE, VIDH, FT3 #### [facility] [address] [place], [place] [address] #### FOL, B12 #### [facility] [address] [place] [address] LABORATORYOrdered By: Lilia Espinoza on 03-30-2023 ABO/Rh [...] (03/30/23 7:57 AM) Invalid Interpretation Code Non-Reactive [facility] Viro/Sero SS GBSPCRon 03-10-2023 Group B Strep (PCR) Negative Normal Negative [facility] ([place] Comment on above: Performed By: #### G BSPCR #### [address] [address] Group B Strep PCR Int Normal [facility] ([place]) Comment on above: Result Comment: Grou p [...] Below Performed By: #### G BSPCR #### [place] [id number] RPRon 03-10-2023 Reagin Ab RPR Ql (S) Non-Reactive Normal Non-Reactive [facility] ([place]) Comment on above: Result Comment: The RPR [...] FERR, ADIFF, CMP, FE, VIDH, FT3 #### [address] [address] #### FOL, B12 #### [address] [address] .Auto Diffon 03-09-2023 Basophil, Absolute 0.0 10 3/mcL Normal 0.0-0.2 [facility] ([place]) Comment on above: Performed By: #### G FR, LIPID, HFP, A1C, IBC, TSH, CBC, ANEU, FT4, FERR, ADIFF, CMP, FE, VIDH, FT3 #### [address] [address] #### FOL, B12 #### [address] [address] Basophils/100 WBC (Bld) 0.2 % Normal 0.0-2.5 [facility] ([place]) Comment on above: Performed By: #### G FR, LIPID, HFP, A1C, IBC, TSH, CBC, ANEU, FT4, FERR, ADIFF, CMP, FE, VIDH, FT3 #### [address] [address] #### FOL, B12 #### [address] [address] Eosinophil, Absolute 0.0 10 3/mcL Normal 0.0-0.4 [facility] ([place]) Comment on above: Performed By: #### G FR, LIPID, HFP, A1C, IBC, TSH, CBC, ANEU, FT4, FERR, ADIFF, CMP, FE, VIDH, FT3 #### [address] [address] #### FOL, B12 #### [address] [address] Eosinophils/100 WBC (Bld) 0.3 % Normal 0.0-7.0 [facility] ([place]) Comment on above: Performed By: #### G FR, LIPID, HFP, A1C, IBC, TSH, CBC, ANEU, FT4, FERR, ADIFF, CMP, FE, VIDH, FT3 #### [address] [address] #### FOL, B12 #### [address] [address] Lymphocyte, Absolute 1.5 10 3/mcL Normal 0.8-3.9 [facility] ([place] Comment on above: Performed By: #### G FR, LIPID, HFP, A1C, IBC, TSH, CBC, ANEU, FT4, FERR, ADIFF, CMP, FE, VIDH, FT3 #### [address] [address] #### FOL, B12 #### [address] [address] Lymphocytes/100 WBC (Bld) 15.8 % Normal 10.0-50.0 [facility] ([place]) Comment on above: Performed By: #### G FR, LIPID, HFP, A1C, IBC, TSH, CBC, ANEU, FT4, FERR, ADIFF, CMP, FE, VIDH, FT3 #### [address] [address] #### FOL, B12 #### [address] [address] Monocyte, Absolute 0.6 10 3/mcL Normal 0.2-1.0 [facility] ([place] Comment on above: Performed By: #### G FR, LIPID, HFP, A1C, IBC, TSH, CBC, ANEU, FT4, FERR, ADIFF, CMP, FE, VIDH, FT3 #### [address] [address] #### FOL, B12 #### [address] [address] Monocytes/100 WBC (Bld) 6.6 % Normal 1.7-13.0 [facility] ([place]) Comment on above: Performed By: #### G FR, LIPID, HFP, A1C, IBC, TSH, CBC, ANEU, FT4, FERR, ADIFF, CMP, FE, VIDH, FT3 #### [address] [address] #### FOL, B12 #### [address] [address] Neutrophils/100 WBC (Bld) 77.1 % Normal 37.0-80.0 [facility] ([place]) Comment on above: Performed By: #### G FR, LIPID, HFP, A1C, IBC, TSH, CBC, ANEU, FT4, FERR, ADIFF, CMP, FE, VIDH, FT3 #### [address] [address] #### FOL, B12 #### [address] [address] .NEUABSon 03-09-2023 Neutrophil, Absolute 7.4 10 3/mcL High 2.9-6.2 [facility] ([place]) Comment on above: Performed By: #### G FR, LIPID, HFP, A1C, IBC, TSH, CBC, ANEU, FT4, FERR, ADIFF, CMP, FE, VIDH, FT3 #### [address] [address] #### FOL, B12 #### [address] [address] CBCon 03-09-2023 Erythrocyte distribution width (RBC) [Ratio] 13.9 % Normal 11.5-14.5 [facility] ([place]) Comment on above: Performed By: #### G FR, LIPID, HFP, A1C, IBC, TSH, CBC, ANEU, FT4, FERR, ADIFF, CMP, FE, VIDH, FT3 #### [address] [address] #### FOL, B12 #### [address] [address] Hematocrit (Bld) [Volume fraction] 36.3 % Low 37.0-47.0 [facility] ([place]) Comment on above: Performed By: #### G FR, LIPID, HFP, A1C, IBC, TSH, CBC, ANEU, FT4, FERR, ADIFF, CMP, FE, VIDH, FT3 #### [address] [address] #### FOL, B12 #### [place] [address] Hgb 12.6 G/dL Normal 12.0-16.0 [facility] ([place]) Comment on above: Performed By: #### G FR, LIPID, HFP, A1C, IBC, TSH, CBC, ANEU, FT4, FERR, ADIFF, CMP, FE, VIDH, FT3 #### [address] [address] #### FOL, B12 #### [address] [address] MCH (RBC) [Entitic mass] 32.4 pg High 27.0-31.2 [facility] ([place]) Comment on above: Performed By: #### G FR, LIPID, HFP, A1C, IBC, TSH, CBC, ANEU, FT4, FERR, ADIFF, CMP, FE, VIDH, FT3 #### [address] [address] #### FOL, B12 #### [address] [address] MCHC 34.7 G/dL Normal 33.0-37.0 [facility] ([place]) Comment on above: Performed By: #### G FR, LIPID, HFP, A1C, IBC, TSH, CBC, ANEU, FT4, FERR, ADIFF, CMP, FE, VIDH, FT3 #### [address] [address] #### FOL, B12 #### [address] [address] MCV (RBC) [Entitic vol] 93.3 fL Normal 80.0-94.0 [facility] ([place]) Comment on above: Performed By: #### G FR, LIPID, HFP, A1C, IBC, TSH, CBC, ANEU, FT4, FERR, ADIFF, CMP, FE, VIDH, FT3 #### [address] [address] #### FOL, B12 #### [place] [address] Platelet 171 10 3/mcL Normal 130-400 [facility] ([place]) Comment on above: Performed By: #### G FR, LIPID, HFP, A1C, IBC, TSH, CBC, ANEU, FT4, FERR, ADIFF, CMP, FE, VIDH, FT3 #### [address] [address] #### FOL, B12 #### [address] [address] Platelet mean volume (Bld) [Entitic vol] 8.5 fL Normal 7.4-10.4 [facility] ([place]) Comment on above: Performed By: #### G FR, LIPID, HFP, A1C, IBC, TSH, CBC, ANEU, FT4, FERR, ADIFF, CMP, FE, VIDH, FT3 #### [address] [address] #### FOL, B12 #### [place] [address] RBC 3.89 10 6/mcL Low 4.20-5.40 [facility] ([place]) Comment on above: Performed By: #### G FR, LIPID, HFP, A1C, IBC, TSH, CBC, ANEU, FT4, FERR, ADIFF, CMP, FE, VIDH, FT3 #### [place] [address] [place], [place] [address] #### FOL, B12 #### [facility] [address] [place] [address] WBC 9.7 10 3/mcL Normal 4.6-10.8 [facility] ([place]) Comment on above: Performed By: #### G FR, LIPID, HFP, A1C, IBC, TSH, CBC, ANEU, FT4, FERR, ADIFF, CMP, FE, VIDH, FT3 #### [facility] [address] [place], [place] [address] #### FOL, B12 #### [facility] [address] [place] [address] LABORATORYOrdered By: Isabella Eng on 03-09-2023 Group [...] 03-06-2023 Amnisure Negative Normal Negative [facility] ([place]) Comment on above: Performed By: #### G FR, LIPID, HFP, A1C, IBC, TSH, CBC, ANEU, FT4, FERR, ADIFF, CMP, FE, VIDH, FT3 #### [place] [address] [place], [place] [address] #### FOL, B12 #### [address] [address] LABORATORYOrdered By: Lilia Espinoza on 05-27-2023 Zjdta-[id number]-[id number] .placental Ql (Vag fld) Negative (03/06/23 5:57 [...] SS CNCOon 11-12-2022 CNCO Letter Text Normal [facility] Bacteria Ur Culton 3 Bacteria identified Cx Nom (U) CULTURE, URINE: <10,000 CFU/ml Normal Urogenital Den Normal [facility] Comment on above: Performed By: #### 6 30-4 #### [facility] CLIA [id number] [address] ED NOTEon 10-29-2022 ED NOTE HNO ID: [id number] Author: Martinze Crouch RN Service: ? Author Type: Registered Nurse Type: ED Notes Filed: 10/28/2022 10:37 PM Note Text: Bed: 26-ED Expected date: Expected time: Means of arrival: Comments: triage Normal [facility] ED PROV NOTEon 10-29-2022 ED PROV NOTE HNO ID: [id number] Author: Danitza Reis DO Service: Emergency Medicine [...] [facility] ED PROV NOTE HNO ID: [id number] Author: Danitza Reis DO Service: Emergency Medicine [...] was dehydrated. She follows with OB at [facility] in [place]. complicated by hyperemesis gravidarum and bleeding in [...] QTC Calculation(Bazett) : 439 ms Calculated P Basalt : 31 degrees Calculated R Basalt : 66 degrees Calculated T Basalt : -[address] & T WAVE ABNORMALITY, CONSIDER INFERIOR ISCHEMIA ST & T WAVE ABNORMALITY, CONSIDER ANTEROLATERAL ISCHEMIA ABNORMAL ECG WHEN COMPARED WITH ECG OF 31-MAY-2022 13:06, VENT. RATE HAS INCREASED BY 58 BPM T WAVE INVERSION NOW EVIDENT IN INFERIOR LEADS INVERTED T WAVES HAVE REPLACED NONSPECIFIC T WAVE ABNORMALITY IN ANTEROLATERAL LEADS Confirmed by DO REIS CHRISTINA ([id number]) on 10/29/2022 1:44:37 AM NAME : LUZ OLIVEIRA PID : [id number] : 2000 Gender : Female Race : [...] ANTEROLATERAL LEADS Confirmed by DO REIS CHRISTINA ([id number]) on 10/29/2022 1:44:37 AM Test Reason : Location : 4 : [place] [address] Overread By : DO REIS CHRISTINA Edited By : DO REIS CHRISTINA Referred By : , Acquired by : KASHIF JOHNSON Normal [facility] Urinalysis complete panel (U )on 10-29-2022 Bacteria LM.HPF (Urine sed) [#/Area] Few Abnormal None Seen [facility] Comment on above: Order Comment: Speci men Type: URINE SPECIMENOrdering Facility: [facility] Address: [address] [place] [address] Performed By: #### 2 4356-8 ####[facility] LABORATORYCLIA [id number] [address] [place] Bilirubin Ql (U) Negative Normal Negative [facility] Comment on above: Order Comment: Speci men Type: URINE SPECIMENOrdering Facility: [facility] Address: [address] [place] [address] Performed By: #### 2 4356-8 ####[facility] LABORATORYCLIA [id number] [address] [place] Clarity (Unsp spec) Turbid Abnormal Clear [facility] Comment on above: Order Comment: Speci men Type: URINE SPECIMENOrdering Facility: [facility] Address: [address] [place] [address] Performed By: #### 2 4356-8 ####[facility] LABORATORYCLIA [id number] [address] Color (U) Yellow Normal yellow [facility] Comment on above: Order Comment: Speci men Type: URINE SPECIMENOrdering Facility: [facility] Address: [address] [place] [address] Performed By: #### 2 4356-8 ####[facility] LABORATORYCLIA [id number] [address] Epithelial cells LM.HPF (Urine sed) [#/Area] Few Normal [facility] Comment on above: Order Comment: Speci men Type: URINE SPECIMENOrdering Facility: [facility] Address: [address] [place] [address] Performed By: #### 2 4356-8 ####[facility] LABORATORYCLIA [id number] [address] Glucose Test strip (U) [Mass/Vol] Negative Normal Trace, Negative [facility] Comment on above: Order Comment: Speci men Type: URINE SPECIMENOrdering Facility: [facility] Address: [address] [place] [address] Performed By: #### 2 4356-8 ####[facility] LABORATORYCLIA [id number] [address] Hemoglobin Ql (U) 1+ Abnormal Negative, Trace [facility] Comment on above: Order Comment: Speci men Type: URINE SPECIMENOrdering Facility: [facility] Address: [address] [place] [address] Performed By: #### 2 4356-8 ####[facility] LABORATORYCLIA [id number] [address] Ketones Ql (U) 4+ Abnormal Negative, Trace [facility] Comment on above: Order Comment: Speci men Type: URINE SPECIMENOrdering Facility: [facility] Address: [address] [place] [address] Performed By: #### 2 4356-8 ####[facility] LABORATORYCLIA [id number] [address] Leukocyte esterase Test strip Ql (U) 25 Misti/mL Normal Negative, 25 Misti/mL [facility] Comment on above: Order Comment: Speci men Type: URINE SPECIMENOrdering Facility: [facility] Address: [address] [place] [address] Performed By: #### 2 4356-8 ####[facility] LABORATORYCLIA [id number] [address] Nitrite Ql (U) Negative Normal Negative [facility] Comment on above: Order Comment: Speci men Type: URINE SPECIMENOrdering Facility: [facility] Address: [address] [place] [address] Performed By: #### 2 4356-8 ####[facility] LABORATORYCLIA [id number] [address] pH (U) 6.0 [pH] Normal 5.0-8.0 [facility] Comment on above: Order Comment: Speci men Type: URINE SPECIMENOrdering Facility: [facility] Address: [address] [place] [address] Performed By: #### 2 4356-8 ####[facility] LABORATORYCLIA [id number] [address] Protein (U) [Mass/Vol] 1+ Abnormal Trace, Negative [facility] Comment on above: Order Comment: Speci men Type: URINE SPECIMENOrdering Facility: [facility] Address: [address] [place] [address] Performed By: #### 2 4356-8 ####[facility] LABORATORYCLIA [id number] [address] RBC LM.HPF (Urine sed) [#/Area] 6-10 /HPF Abnormal 0-3 /HPF [facility] Comment on above: Order Comment: Speci men Type: URINE SPECIMENOrdering Facility: [facility] Address: [address] [place] [address] Performed By: #### 2 4356-8 ####[facility] LABORATORYCLIA [id number] [address] Specific gravity (U) [Rel density] 1.029 Normal 1.005-1.030 [facility] Comment on above: Order Comment: Speci men Type: URINE SPECIMENOrdering Facility: [facility] Address: [address] [place] [address] Performed By: #### 2 4356-8 ####[facility] LABORATORYCLIA [id number] [address] Urobilinogen Ql (U) Normal Normal Negative [facility] Comment on above: Order Comment: Speci men Type: URINE SPECIMENOrdering Facility: [facility] Address: [address] [place] [address] Performed By: #### 2 4356-8 ####[facility] LABORATORYCLIA [id number] [address] [place] WBC LM.HPF (Urine sed) [#/Area] 0-5 /HPF Normal 0-5 /HPF [facility] Comment on above: Order Comment: Speci men Type: URINE SPECIMENOrdering Facility: [facility] Address: [address] [place] [address] Performed By: #### 2 4356-8 ####[facility] LABORATORYCLIA [id number] [address] STATES OF [facility] Basic metabolic 2000 panelon 10-28-2022 Anion gap [Moles/Vol] 15 mmol/L Normal 9-18 [facility] Comment on above: Order Comment: Speci men Type: BLOOD SPECIMENOrdering Facility: [facility] Address: [address] [place] [address] Performed By: #### 2 4321-2, 14723-3 ####[facility] LABORATORYCLIA [id number] [address] [place] Calcium [Mass/Vol] 10.1 mg/dL Normal 8.5-10.2 [facility] Comment on above: Order Comment: Speci men Type: BLOOD SPECIMENOrdering Facility: [facility] Address: [address] [place] [address] Performed By: #### 2 4321-2, ####[facility] LABORATORYCLIA [id number] [address] [place] Chloride [Moles/Vol] 102 mmol/L Normal 97-105 [facility] Comment on above: Order Comment: Speci men Type: BLOOD SPECIMENOrdering Facility: [facility] Address: [address] [place] [address] Performed By: #### 2 2, ####[facility] LABORATORYCLIA [id number] [address] STATES OF [facility] CO2 [Moles/Vol] 22 mmol/L Normal 22-30 [facility] Comment on above: Order Comment: Speci men Type: BLOOD SPECIMENOrdering Facility: [facility] Address: [address] [place] [address] Performed By: #### 2 4320-11, ####[facility] H[facility] SERVICESIA [id number] [address] Creatinine [Mass/Vol] 0.61 mg/dL Normal 0.58-0.96 [facility] Comment on above: Order Comment: Speci men Type: BLOOD SPECIMENOrdering Facility: [facility] Address: [address] [place] [address] Performed By: #### 2 4320-11, ####[facility] HUM[facility] SERVICESIA [id number] [address] ESTIMATED GLOMERULAR FILTRATION RATE 129 mL/min/1.73m??? Normal >=60 [facility] Comment on above: Order Comment: Speci men Type: BLOOD SPECIMENOrdering Facility: [facility] Address: [address] [place] [address] Result Comment: Tierra mated Glomerular Filtration Rate [...] actual GFR. Performed By: #### 2 4320-2, ####[facility] LABORATORYCLIA [id number] [place] [address] [place] Glucose [Mass/Vol] 86 mg/dL Normal 74-99 [facility] Comment on above: Order Comment: Speci men Type: BLOOD SPECIMENOrdering Facility: [facility] Address: [place] [address] Result Comment: The [place] [employer] (ADA) provides guidance for cutoff [...] Standards of Medical Care in Diabetes 2016, [place] [employer]. Diabetes Care. 2016.39(Suppl 1). Performed By: #### 2 4320-11, ####[facility] LABORATORYCLIA [id number] [place] [address] [place] Potassium [Moles/Vol] 3.2 mmol/L Low 3.7-5.1 [facility] Comment on above: Order Comment: Eloise lopez Type: BLOOD SPECIMENOrdering Facility: [facility] Address: [place] [place] [address] Performed By: #### 2 4320-11, ####[facility] LABORATORYCLIA [id number] [place] [address] [place] Sodium [Moles/Vol] 139 mmol/L Normal 136-144 [facility] Comment on above: Order Comment: Speci jessica Type: BLOOD SPECIMENOrdering Facility: [facility] Address: [address] [place] [address] Performed By: #### 2 4320-11, ####[facility] LABORATORYCLIA [id number] [place] [address] [place] Urea nitrogen [Mass/Vol] 5 mg/dL Low 7-21 [facility] Comment on above: Order Comment: Speci men Type: BLOOD SPECIMENOrdering Facility: [facility] Address: [address] [place] [address] Performed By: #### 2 4321-2, 49279-8 ####[facility] LABORATORYCLIA [id number] [place] [address] [place] CBC W Auto Differential pane l (Bld)on 10-28-2022 Basophils (Bld) [#/Vol] 10*3/uL Normal <0.11 [facility] Comment on above: Order Comment: Speci men Type: BLOOD SPECIMENOrdering Facility: [facility] Address: [address] [place] [address] Performed By: #### 5 7021-8 ####[facility] LABORATORYCLIA [id number] [place] [address] [place] Basophils/100 WBC (Bld) 0.1 % Normal [facility] Comment on above: Order Comment: Speci men Type: BLOOD SPECIMENOrdering Facility: [facility] Address: [address] [place] [address] Performed By: #### 5 7021-8 ####[facility] LABORATORYCLIA [id number] [address] [place] Differential cell count method Nom (Bld) Auto Normal [facility] Comment on above: Order Comment: Speci men Type: BLOOD SPECIMENOrdering Facility: [facility] Address: [address] [place] [address] Performed By: #### 5 7021-8 ####[facility] LABORATORYCLIA [id number] [place] [address] [place] Eosinophils (Bld) [#/Vol] 10*3/uL Normal <0.46 [facility] Comment on above: Order Comment: Speci men Type: BLOOD SPECIMENOrdering Facility: [facility] Address: [address] [place] [address] Performed By: #### 5 7021-8 ####[facility]ORATORYCLIA [id number] [address] Eosinophils/100 WBC (Bld) 0.1 % Normal [facility] Comment on above: Order Comment: Speci men Type: BLOOD SPECIMENOrdering Facility: [facility] Address: [address] [place] [address] Performed By: #### 5 7021-8 ####[facility] LABORATORYCLIA [id number] [address] [place] Erythrocyte distribution width (RBC) [Ratio] 13.8 % Normal 11.5-15.0 [facility] Comment on above: Order Comment: Speci men Type: BLOOD SPECIMENOrdering Facility: [facility] Address: [address] [place] [address] Performed By: #### 5 7021-8 ####[facility] LABORATORYCLIA [id number] [address] [place] Hematocrit (Bld) [Volume fraction] 38.2 % Normal 36.0-46.0 [facility] Center Comment on above: Order Comment: Speci men Type: BLOOD SPECIMENOrdering Facility: [facility] Address: [address] [place] [address] Performed By: #### 5 7021-8 ####[facility] LABORATORYCLIA [id number] [address] OF [place] Hemoglobin (Bld) [Mass/Vol] 13.5 g/dL Normal 11.5-15.5 [facility] Comment on above: Order Comment: Speci men Type: BLOOD SPECIMENOrdering Facility: [facility] Address: [address] [place] [address] Performed By: #### 5 7021-8 ####[facility] LABORATORYCLIA [id number] [address] [place] Immature granulocytes (Bld) [#/Vol] 0.04 10*3/uL Normal <0.10 [facility] Comment on above: Order Comment: Speci men Type: BLOOD SPECIMENOrdering Facility: [facility] Address: [address] [place] [address] Performed By: #### 5 7021-8 ####[facility] LABORATORYCLIA [id number] [address] Immature granulocytes/100 WBC (Bld) 0.5 % Normal [facility] Comment on above: Order Comment: Speci men Type: BLOOD SPECIMENOrdering Facility: [facility] Address: [address] [place] [address] Performed By: #### 5 7021-8 ####[facility] LABORATORYCLIA [id number] [address] OF [facility] Lymphocytes (Bld) [#/Vol] 1.53 10*3/uL Normal 1.00-4.00 [facility] Comment on above: Order Comment: Speci men Type: BLOOD SPECIMENOrdering Facility: [facility] Address: [address] [place] [address] Performed By: #### 5 7021-8 ####[facility] LABORATORYCLIA [id number] [address] Lymphocytes/100 WBC (Bld) 18.8 % Normal [facility] Comment on above: Order Comment: Speci men Type: BLOOD SPECIMENOrdering Facility: [facility] Address: [address] [place] [address] Performed By: #### 5 7021-8 ####[facility] LABORATORYCLIA [id number] [address] MCH (RBC) [Entitic mass] 31.6 pg Normal 26.0-34.0 [facility] Comment on above: Order Comment: Speci men Type: BLOOD SPECIMENOrdering Facility: [facility] Address: [address] [place] [address] Performed By: #### 5 7021-8 ####[facility] LABORATORYCLIA [id number] [address] STATES OF [facility] MCHC (RBC) [Mass/Vol] 35.3 g/dL Normal 30.5-36.0 [facility] Comment on above: Order Comment: Speci men Type: BLOOD SPECIMENOrdering Facility: [facility] Address: [address] [place] [address] Performed By: #### 5 7021-8 ####[facility] LABORATORYCLIA [id number] [address] OF [place] MCV (RBC) [Entitic vol] 89.5 fL Normal 80.0-100.0 [facility] Comment on above: Order Comment: Speci men Type: BLOOD SPECIMENOrdering Facility: [facility] Address: [address] [place] [address] Performed By: #### 5 7021-8 ####[facility] LABORATORYCLIA [id number] [address] STATES OF [place] Monocytes (Bld) [#/Vol] 0.51 10*3/uL Normal <0.87 [facility] Comment on above: Order Comment: Speci men Type: BLOOD SPECIMENOrdering Facility: [facility] Address: [address] [place] [address] Performed By: #### 5 7021-8 ####[facility] LABORATORYCLIA [id number] [address] STATES OF [place] Monocytes/100 WBC (Bld) 6.3 % Normal [facility] Comment on above: Order Comment: Speci men Type: BLOOD SPECIMENOrdering Facility: [facility] Address: [address] [place] [address] Performed By: #### 5 7021-8 ####[facility] LABORATORYCLIA [id number] [address] STATES OF [place] Neutrophils (Bld) [#/Vol] 6.06 10*3/uL Normal 1.45-7.50 [facility] Comment on above: Order Comment: Speci men Type: BLOOD SPECIMENOrdering Facility: [facility] Address: [address] [place] [address] Performed By: #### 5 7021-8 ####[facility]ORATORYCLIA [id number] [place] [address] [place] Neutrophils/100 WBC (Bld) 74.2 % Normal [facility] Comment on above: Order Comment: Speci men Type: BLOOD SPECIMENOrdering Facility: [facility] Address: [address] [address] Performed By: #### 5 7021-8 ####[facility] LABORATORYCLIA [id number] [address] STATES OF [place] Nucleated RBC (Bld) [#/Vol] 10*3/uL Normal <0.01 [facility] Comment on above: Order Comment: Speci men Type: BLOOD SPECIMENOrdering Facility: [facility] Address: [address] [address] Performed By: #### 5 7021-8 ####[facility] LABORATORYCLIA [id number] [address] STATES OF [place] Nucleated RBC/100 WBC (Bld) [Ratio] 0.0 /100 WBC Normal [facility] Comment on above: Order Comment: Speci men Type: BLOOD SPECIMENOrdering Facility: [facility] Address: [address] [address] Performed By: #### 5 7021-8 ####[facility] LABORATORYCLIA [id number] [address] STATES OF [place] Platelet mean volume (Bld) [Entitic vol] 10.2 fL Normal 9.0-12.7 [facility] Comment on above: Order Comment: Speci men Type: BLOOD SPECIMENOrdering Facility: [facility] Address: [address] [address] Performed By: #### 5 7021-8 ####[facility] LABORATORYCLIA [id number] [place] [address] [place] Platelets (Bld) [#/Vol] 191 10*3/uL Normal 150-400 [facility] Comment on above: Order Comment: Speci men Type: BLOOD SPECIMENOrdering Facility: [facility] Address: [address] [address] Performed By: #### 5 7021-8 ####[facility] LABORATORYCLIA [id number] [address] RBC (Bld) [#/Vol] 4.27 10*6/uL Normal 3.90-5.20 [facility] Comment on above: Order Comment: Speci men Type: BLOOD SPECIMENOrdering Facility: [facility] Address: [address] [place] [address] Performed By: #### 5 7021-8 ####[facility] LABORATORYCLIA [id number] [address] WBC (Bld) [#/Vol] 8.16 10*3/uL Normal 3.70-11.00 [facility] Comment on above: Order Comment: Speci men Type: BLOOD SPECIMENOrdering Facility: [facility] Address: [address] [place] [address] Performed By: #### 5 7021-8 ####[facility] LABORATORYCLIA [id number] [address] ED Triage Noteon 10-28-2022 ED Triage Note HNO ID: [id number] Author: Dax Stevenson APRN.NUMERICAL CONTROL ROUTER OPERATOR Service: Emergency Medicine Author Type: Nurse [...] CBC CMP EKG Urinalysis SIGNATURE: Dax Stevenson APRN.NUMERICAL CONTROL ROUTER OPERATOR Normal [facility] Magnesium SerPl-mCncon 10-28 Magnesium [Mass/Vol] 1.8 mg/dL Normal 1.7-2.3 [facility] Comment on above: Order Comment: Speci men Type: BLOOD SPECIMENOrdering Facility: [facility] Address: [address] [address] Performed By: #### 2 4321-2, 08250-5 ####[facility] LABORATORYCLIA [id number] [place] [address] [place] URINE OB DIP B/Oon 3 Glucose Ql (U) Negative Neg mg/dL [facility] Protein.monoclonal (U) [Mass/Vol] TRACE Abnormal Neg mg/dL [facility] CNCOon 08-21-2022 CNCO Letter Text Normal [facility] Bacteria Ur Culton 2 Bacteria identified Cx Nom (U) ORGANISM ID: 1 50,000-<100,000 CFU/ml Normal urogenital den Normal [facility] Comment on above: Performed By: #### 7 3752-8, 72652-9, 12497-0 #### [facility] CLIA [id number] [address] [place] [address] OF [place] C. trachomatis+N. gonorrhoea e DNA CHICHO+probe Ql (Unsp spec)on 08-19-2022 C. trachomatis DNA CHICHO+probe Ql (Unsp spec) Negative Normal Negative for Chlamydia trachomatis by amplificaton [facility] Comment on above: Order Comment: Speci men Type: SWAB [facility] Address: [address] [address] Performed By: #### 3 6902-5 #### [facility] CLIA [id number] [address] [place] [address] [place] N. gonorrhoeae DNA CHICHO+probe Ql (Unsp spec) Negative Normal Negative for Neisseria gonorrhoeae by amplification [facility] Comment on above: Order Comment: Speci men Type: SWAB [facility] Address: [address] [address] Performed By: #### 3 6902-5 #### [facility] CLIA [id number] [facility] [place] [address] [place] CBC panel Auto (Bld)on 08-19 Erythrocyte distribution width (RBC) [Ratio] 12.4 % Normal 11.5-15.0 [facility] Comment on above: Order Comment: Speci men Type: BLOOD SPECIMEN [facility] Address: [address] [place] [address] Performed By: #### 7 3752-8, 20375-4, 77638-0 #### [facility] CLIA [id number] [address] [place] [address] [place] Hematocrit (Bld) [Volume fraction] 40.5 % Normal 36.0-46.0 [facility] Comment on above: Order Comment: Speci men Type: BLOOD SPECIMEN [facility] Address: [address] [place] [address] Performed By: #### 7 3752-8, 61464-1, 45946-4 #### [facility] CLIA [id number] [address] [place] [address] [place] Hemoglobin (Bld) [Mass/Vol] 13.6 g/dL Normal 11.5-15.5 [facility] Comment on above: Order Comment: Speci men Type: BLOOD SPECIMEN [facility] Address: [address] [place] [address] Performed By: #### 7 3752-8, 73900-6, 20000-7 #### [facility] CLIA [id number] [address] [place] [address] [place] MCH (RBC) [Entitic mass] 30.8 pg Normal 26.0-34.0 [facility] Comment on above: Order Comment: Speci men Type: BLOOD SPECIMEN [facility] Address: [address] [place] [address] Performed By: #### 7 3752-8, 36794-3, 11935-4 #### [facility] CLIA [id number] [facility] [place] [address] [place] MCHC (RBC) [Mass/Vol] 33.6 g/dL Normal 30.5-36.0 [facility] Comment on above: Order Comment: Speci men Type: BLOOD SPECIMEN [facility] Address: [address] [place], [place] [address] Performed By: #### 7 3752-8, 97116-8, 76217-6 #### [facility] CLIA [id number] [address] [place] [address] [place] MCV (RBC) [Entitic vol] 91.8 fL Normal 80.0-100.0 [facility] Comment on above: Order Comment: Speci men Type: BLOOD SPECIMEN [facility] Address: [address] [place] [address] Performed By: #### 7 3752-8, 28020-7, 40463-9 #### [facility] CLIA [id number] [address] [place] [address] [place] Nucleated RBC (Bld) [#/Vol] 10*3/uL Normal <0.01 [facility] Comment on above: Order Comment: Speci men Type: BLOOD SPECIMEN [facility] Address: [address] [place], [place] [address] Performed By: #### 7 3752-8, 04163-4, 14023-2 #### [facility] CLIA [id number] [address] [place] [address] [place] Platelet mean volume (Bld) [Entitic vol] 10.5 fL Normal 9.0-12.7 [facility] Comment on above: Order Comment: Speci men Type: BLOOD SPECIMEN [facility] Address: [address] [place], [place] [address] Performed By: #### 7 3752-8, 93318-9, 68515-1 #### [facility] CLIA [id number] [address] [place] [address] [place] Platelets (Bld) [#/Vol] 247 10*3/uL Normal 150-400 [facility] Comment on above: Order Comment: Speci men Type: BLOOD SPECIMEN [facility] Address: [address] [place] [address] Performed By: #### 7 3752-8, 26993-5, 80757-1 #### [facility] CLIA [id number] [address] [place] [address] [place] RBC (Bld) [#/Vol] 4.41 10*6/uL Normal 3.90-5.20 [facility] Comment on above: Order Comment: Speci men Type: BLOOD SPECIMEN [facility] Address: [address] [place] [address] Performed By: #### 7 3752-8, 19395-6, 30609-2 #### [facility] CLIA [id number] [address] [place] [address] [place] WBC (Bld) [#/Vol] 7.20 10*3/uL Normal 3.70-11.00 [facility] Comment on above: Order Comment: Speci men Type: BLOOD SPECIMEN [facility] Address: [address] [place] [address] Performed By: #### 7 3752-8, 83638-5, 35472-2 #### [facility] CLIA [id number] [address] [place] [address] [place] Erythrocyte distribution width (RBC) [Ratio] 12.4 % 11.5 - 15.0 % [facility] Hematocrit (Bld) [Volume fraction] 40.5 % 36.0 - 46.0 % [facility] Hemoglobin (Bld) [Mass/Vol] 13.6 g/dL 11.5 - 15.5 g/dL [facility] MCH (RBC) [Entitic mass] 30.8 pg 26.0 - 34.0 pg [facility] MCHC (RBC) [Mass/Vol] 33.6 g/dL 30.5 - 36.0 g/dL [facility] MCV (RBC) [Entitic vol] 91.8 fL 80.0 - 100.0 fL [facility] Nucleated RBC (Bld) [#/Vol] <0.01 k/uL [facility] Platelet mean volume (Bld) [Entitic vol] 10.5 fL 9.0 - 12.7 fL [facility] Platelets (Bld) [#/Vol] 247 10*3/uL 150 - 400 k/uL [facility] RBC (Bld) [#/Vol] 4.41 10*6/uL 3.90 - 5.2 0 m/uL [facility] WBC (Bld) [#/Vol] 7.20 10*3/uL 3.70 - 11. 00 k/uL [facility] HBV surface Ab IA Ql (S)on 10-19-2021 HBV surface Ag Ql (S) Negative Normal Negative [facility] Comment on above: Order Comment: Eloise lopez Type: BLOOD SPECIMEN [facility] Address: [address] [place] [address] Performed By: #### 7 3752-8, 95600-8, 24821-9 #### [facility] CLIA [id number] [address] [place] [address] OF [facility] HCV Ab Ser Qlon 08-19-2022 HCV Ab Ql (S) Negative Normal Negative [facility] Comment on above: Order Comment: Eloise lopez Type: BLOOD SPECIMEN [facility] Address: [address] [place] [address] Result Comment: The result suggests no evidence of active infection with Hepatitis C virus. Should recent infection be suspected, repeat testing may be considered 4-6 weeks after this draw. Performed By: #### 7 3752-8, 66253-3, 74113-9 #### [facility] CLIA [id number] [address] [place] [address] [place] HIV 1+2 Ab IA Qlon 2 HIV 1 and 2 Ab IA.rapid Nom Normal [facility] Comment on above: Order Comment: Speci men Type: BLOOD SPECIMEN [facility] Address: [address] [place] [address] Result Comment: Test not indicated. Performed By: #### 7 3752-8, , #### [facility] CLIA [id number] [address] [place] [address] [place] HIV 1+2 Ab+HIV1 p24 Ag IA Ql Non-Reactive Normal Nonreactive [facility] Comment on above: Order Comment: Speci men Type: BLOOD SPECIMEN [facility] Address: [address] [place] [address] Performed By: #### 7 3752-8, , #### [facility] CLIA [id number] [address] [place] [address] [place] HIVINT Normal [facility] Comment on above: Order Comment: Speci men Type: BLOOD SPECIMEN [facility] Address: [address] [place] [address] Result Comment: No e vidence of HIV-1 or HIV-2 infection. Should recent infection be suspected, repeat testing may be considered 2-3 weeks after this draw. [place] Rev. Code 3701.243(E): This information has been [...] Performed By: #### 7 3752-8, , #### [facility] CLIA [id number] [address] [place] [address] [place] No Panel Informationon 08-19 [facility] PAP FLUID CERVICAL SCREENING on 08-19-2022 CASE REPORT Normal [facility] Comment on above: Order Comment: Speci men Type: FLUID SPECIMEN [facility] Address: [address] [place], [place] [address] Result Comment: Gyne cologic Cytology Report Case: [id number] Authorizing Provider: Braulio Hollingsworth MD Collected: 08/19/2022 02:46 PM Ordering Location: Obstetrics/Gynecology Received: 08/20/2022 12:38 PM First Screen: Shelby Umaña, CT, ASCP Rescreen: Wandy Fraser, CT, ASCP Specimen: Pap, Computer Security Coordinator, Screening, CERVICAL SCREENING FLUID Performed By: #### L [id number] #### [facility] CLIA [id number] [address] [place] [address] [place] CLINICAL HISTORY ABNORMAL PAP[LGSIL i n 2020 in [place] Normal [facility] Comment on above: Order Comment: Speci men Type: FLUID SPECIMEN [facility] Address: [address] [place] [address] Performed By: #### L [id number] #### [facility] CLIA [id number] [facility] [place] [address] [place] CYTOLOGY INTERPRETATION PAP Normal [facility] Comment on above: Order Comment: Speci men Type: FLUID SPECIMEN [facility] Address: [address] [place] [address] Result Comment: Nega tive for Intraepithelial lesion or malignancy. Performed By: #### L [id number] #### [facility] CLIA [id number] [address] STATES [place] FINAL DIAGNOSIS Normal [facility] Comment on above: Order Comment: Speci men Type: FLUID SPECIMEN [facility] Address: [address] [place] [address] Result Comment: A - CERVICAL SCREENING FLUID Satisfactory for interpretation, Excess blood Negative for Intraepithelial lesion or malignancy. Performed By: #### L [id number] #### [facility] CLIA [id number] [address] [place] [address] [place] FINAL PERFORMING LAB Normal [facility] Comment on above: Order Comment: Speci men Type: FLUID SPECIMEN [facility] Address: [address] Result Comment: Tech nical component, wood crew supervisor screening performed at [facility], [address] [place] [address] CLIA# [id number] Diagnostic interpretation performed at [facility], [facility] [address] CLIA# [id number] Hotel Desk Clerk: Adam Farah M.D. Performed By: #### L [id number] #### [facility] CLIA [id number] [address] [place] [address] [place] GROSS DESCRIPTION Normal [facility] Comment on above: Order Comment: Speci men Type: FLUID SPECIMEN [facility] Address: [address] Result Comment: A. C ERVICAL SCREENING FLUID Glacial Acetic Acid added. Performed By: #### L [id number] #### [facility] CLIA [id number] [address] [place] [address] [place] HPV REQUESTED? Yes, Reflex HPV for ASCUS Normal [facility] Comment on above: Order Comment: Speci men Type: FLUID SPECIMEN [facility] Address: [address] [place] [address] Performed By: #### L [id number] #### [facility] CLIA [id number] [facility] [place] [address] [place] LMP 06/21/2022() Normal [facility] Comment on above: Order Comment: Speci men Type: FLUID SPECIMEN [facility] Address: [address] [place] [address] Performed By: #### L [id number] #### [facility] CLIA [id number] [address] [place] [address] PAP DISCLAIMER COMMENT The Pap Smear is a screening test for cervical cancer. False negative results occur with all screening tests, emphasizing the need for rescreening at recommended intervals, and clinical correlation. Normal [facility] Comment on above: Order Comment: Speci men Type: FLUID SPECIMEN [facility] Address: [address] [place] [address] Performed By: #### L [id number] #### [facility] CLIA [id number] [address] [place] [address] PAP COMMISSIONED SECURITY OFFICER COMMENT This specimen has been analyzed by the ThinPrep Imaging System, an automated imaging and review system, which assists the laboratory in evaluating cells on ThinPrep Pap tests. Following automated imaging, selected francis from every slide are reviewed by a wood crew supervisor. Normal [facility] Comment on above: Order Comment: Speci men Type: FLUID SPECIMEN [facility] Address: [address] [place] [address] Performed By: #### L [id number] #### [facility] CLIA [id number] [address] [place] [address] [place] RUBELLA IGG ABon 08-19-2022 RUBELLA IGG AB, QUAL Positive Normal Positive [facility] Comment on above: Order Comment: Speci men Type: BLOOD SPECIMEN [facility] Address: [address] [place] [address] Result Comment: The result suggests recent or past exposure to Rubella virus or history of Rubella vaccination. Positive result may also be seen due to presence of passively-transferred antibodies. Please correlate with patient's history. Performed By: #### 7 3752-8, 13050-0, 13479-2 #### [facility] CLIA [id number] [address] [place] [address] [place] Reagin and Treponema pallidu m IgG and IgM [Interp]on 08-19-2022 SYPHILIS INTERPRETATION Cannot exclude recent Treponemal infection if specimen collected within 7-10 days after appearance of suspect lesions or 2-3 weeks after an exposure. Clinical correlation is required. Normal [facility] Comment on above: Order Comment: Speci men Type: BLOOD SPECIMEN [facility] Address: [address] [place] [address] Performed By: #### 7 3752-8, 73280-6, 41475-7 #### [facility] CLIA [id number] [address] [place] [address] [place] T. pallidum IgG+IgM IA Ql (S) Non-Reactive Normal Nonreactive [facility] Comment on above: Order Comment: Speci men Type: BLOOD SPECIMEN [facility] Address: [address] [place], [place] [address] Performed By: #### 7 3752-8, 61405-3, 43457-5 #### [facility] CLIA [id number] [address] [place] [address] [place] TSH BLDon 08-19-2022 TSH Qn 1.190 m[IU]/L 0.270 - 4.200 mIU/L [facility] TSH SerPl-aCncon 08-19-2022 TSH Qn 1.190 m[IU]/L Normal 0.270-4.200 [facility] Comment on above: Order Comment: Speci men Type: BLOOD SPECIMEN [facility] Address: [address] [address] [place], [place] [id number] Result Comment: If t he patient is , TSH reference range varies by gestational period: First Trimester (weeks 9-12): 0.180-2.990 mIU/L Second Trimester: 0.110-3.980 mIU/L Third Trimester: 0.480-4.710 mIU/L Rafiq Winston et al. A Practical Approach for the Verifications and Determination of Site- and Trimester-Specific Reference Intervals for Thyroid Function tests in . Thyroid, 2019:29:3:412-420. William E, et al. 2017 Guidelines of the [place] [employer] for the Diagnosis and Management of Thyroid Disease during and the . Thyroid, 2017:27:3:315-389. Performed By: #### 3 016-3 #### [facility] CLIA [id number] [address] OF [facility] TYPE + SCREEN PRENATALon ABO O [facility] HIstorical Ab Scr Status Negative [facility] Rh Nom (Bld) Positive [facility] Type and Screen Expiration 08/22/2022 23:59 [facility] ABO O Normal [facility] Comment on above: Order Comment: Speci men Type: BLOOD SPECIMEN Ordering Facility: [facility] Address: [address] [place] [address] Performed By: #### T SPN #### [facility] CLIA [id number] [address] HISTORICAL AB SCR STATUS Negative Normal [facility] Comment on above: Order Comment: Speci men Type: BLOOD SPECIMEN Ordering Facility: [facility] Address: [address] [place] [address] Performed By: #### T SPN #### [facility] CLIA [id number] [address] Rh Nom (Bld) Positive Normal [facility] Comment on above: Order Comment: Speci men Type: BLOOD SPECIMEN Ordering Facility: [facility] Address: [address] [place] [address] Performed By: #### T SPN #### [facility] CLIA [id number] [address] TYPE AND SCREEN EXPIRATION 08/22/2022 23:59 Normal [facility] Comment on above: Order Comment: Speci men Type: BLOOD SPECIMEN Ordering Facility: [facility] Address: [address] [address] Performed By: #### T SPN #### [facility] CLIA [id number] [address] URINE OB DIP B/Oon 2 Glucose Ql (U) Negative Neg mg/dL [facility] Protein.monoclonal (U) [Mass/Vol] Negative Neg mg/dL [facility] CONFIRM BLOOD TYPEon 022 ABO O Normal [facility] Comment on above: Order Comment: Speci men Type: BLOOD SPECIMEN Ordering Facility: [facility] Address: [address] [address] Performed By: #### C ONABO #### [facility] [place] [id number] [address] Rh Nom (Bld) Positive Normal [facility] Comment on above: Order Comment: Speci men Type: BLOOD SPECIMEN Ordering Facility: [facility] Address: [address] [place] [address] Performed By: #### C ONABO #### [facility] [place] [id number] [address] ED Triage Noteon 08-14-2022 ED Triage Note HNO ID: [id number] Author: Kaushik Justice APRN.NUMERICAL CONTROL ROUTER OPERATOR Service: Emergency Medicine Author Type: Nurse [...] a week. She was previously seen at [facility] where she states she had an [...] positive send OB triage SIGNATURE: Kaushik Justice APRN.NUMERICAL CONTROL ROUTER OPERATOR Normal [facility] TYPE + SCREEN PRENATALon ABO O Normal [facility] Comment on above: Order Comment: Speci men Type: BLOOD SPECIMEN Ordering Facility: [facility] Address: [address] [place] [address] Performed By: #### T SPN #### [facility] CLIA [id number] [address] HISTORICAL AB SCR STATUS Negative [facility] Comment on above: Order Comment: Speci men Type: BLOOD SPECIMEN Ordering Facility: [facility] Address: [address] [place] [address] Performed By: #### T SPN #### [facility] CLIA [id number] [address] [place] [address] Rh Nom (Bld) Positive Normal [facility] Comment on above: Order Comment: Speci men Type: BLOOD SPECIMEN [facility]ing Facility: [facility] Address: [address] [place] [address] Performed By: #### T SPN #### [facility] CLIA [id number] [address] [place] [address] TYPE AND SCREEN EXPIRATION 08/17/2022 23:59 Normal [facility] Comment on above: Order Comment: Speci men Type: BLOOD SPECIMEN Ordering Facility: [facility] Address: [address] [place] [address] Performed By: #### T SPN #### [facility] CLIA [id number] [address] [place] [address] CNPNon 08-10-2022 CNPN Telephone ([facility]) LUZ [id number]) 2000 F Date Time Provider Department 08/10/22 [...] Status:Closed by NISA MURPHY on 11/11/22 Normal [facility] Absolute lymphocyte counton 08-09-2022 Lymphocytes Auto (Unsp spec) [#/Vol] 1.23 10*3/uL 0.83-4.51 [facility] Work Phone: Basophil percentageon 2021 Basophils/100 WBC (Bld) 0.2 % 0-1 [facility] Work Phone: Bilirubin [Mass/Vol] 0.50 mg/dL 0.20-1.00 [facility] Work Phone: Comment on above: For patients on eltr ombopag therapy, use of Dimension [place] TBIL is not recommended. Chloride [Moles/Vol] 107 mmol/L 98-107 [facility] Work Phone: Eosinophils/100 WBC (Bld) 0.3 % 0-5 [facility] Work Phone: Glucose [Mass/Vol] 122 mg/dL 74-106 [facility] Work Phone: Comment on above: Fasting Glucose resu lt from 100 to 125 mg/dL suggests IMPAIRED HOMEOSTASIS per A.D.A. criteria. Neutrophils (Bld) [#/Vol] 4.2 10*3/uL 2.0-7.7 [facility] Work Phone: Neutrophils/100 WBC (Bld) 71.9 % 47-70 [facility] Work Phone: Potassium [Moles/Vol] 3.5 mmol/L 3.5-5.1 [facility] Work Phone: Protein [Mass/Vol] 7.3 g/dL 6.4-8.2 [facility] Work Phone: Sodium [Moles/Vol] 139 mmol/L 136-145 [facility] Work Phone: WBC (Bld) [#/Vol] 5.9 10*3/uL 4.4-11.0 [facility] Work Phone: Basophil percentage 0 SEEN /hpf 0-5 [facility] Work Phone: Beta hCG serum qualon 2021 Beta HCG ( test) Ql Negative [facility] Work Phone: Comment on above: TEST is *P OSITIVE* Bilirubin Test strip Ql (U)o n 08-09-2022 Bilirubin Ql (U) Negative Negative [facility] Work Phone: Blood erythrocytes count (nu mber/volume)on 08-09-2022 RBC (Bld) [#/Vol] 4.26 10*6/uL 4.2-5.4 [facility] Work Phone: Blood hemoglobin measurement (mass/volume)on 08-09-2022 Hemoglobin (Bld) [Mass/Vol] 13.4 g/dL 12.0-15.0 [facility] Work Phone: Blood lymphocytes/100 leukoc yteson 08-09-2022 Lymphocytes/100 WBC (Bld) 21.0 % 19-41 [facility] Work Phone: Blood monocytes/100 leukocyt eson 08-09-2022 Monocytes/100 WBC (Bld) 6.3 % 0-10 [facility] Work Phone: [phone] Blood platelet mean volumeon 08-09-2022 Platelet mean volume (Bld) [Entitic vol] 10.1 fL 6.2-12.0 [facility] Work Phone: Determination of erythrocyte mean corpuscular volume (MCV)on 08-09-2022 MCV (RBC) [Entitic vol] 91.8 fL 81-99 [facility] Work Phone: Hematocrit Auto (Bld) [Volum e fraction]on 08-09-2022 Hematocrit (Bld) [Volume fraction] 39.1 % 37-47 [facility] Work Phone: Ketones Test strip Ql (U)on 08-09-2022 Ketones Ql (U) Negative Negative [facility] Work Phone: [phone] Laboratory - Chemistry and C hemistry - challengeon 08-09-2022 ALP [Catalytic activity/Vol] 56 U/L 45-117 [facility] Work Phone: [phone] ALT [Catalytic activity/Vol] 67 U/L 13-56 [facility] Work Phone: [phone] CO2 [Moles/Vol] 25.0 mmol/L 21.0-32.0 [facility] Work Phone: [phone] Globulin (S) [Mass/Vol] 3.5 g/dL 2.2-4.2 [facility] Work Phone: [phone] Urea nitrogen/Creatinine [Mass ratio] 9.7 mg/mg 10-20 [facility] Work Phone: [phone] Laboratory - Hematology and Cell countson 08-09-2022 Erythrocyte distribution width (RBC) [Entitic vol] 42.5 fL 35.1-43.9 [facility] Work Phone: [phone] Erythrocyte distribution width (RBC) [Ratio] 12.8 % 11.6-14.6 [facility] Work Phone: [phone] Immature granulocytes/100 WBC (Bld) 0.300 % 0.0-0.9 [facility] Work Phone: [phone] Comment on above: IG% - Immature Granu locytes (promyelocytes, myelocytes and metamyelocytes) > 1% indicates that a LEFT SHIFT is Present. MCH (RBC) [Entitic mass] 31.5 pg 27.0-32.0 [facility] Work Phone: [phone] Nucleated RBC/100 WBC (Bld) [Ratio] 0 % 0-5 [facility] Work Phone: [phone] MCHC Auto (RBC) [Mass/Vol]on 08-09-2022 MCHC (RBC) [Mass/Vol] 34.3 g/dL 32-36 [facility] Work Phone: [phone] Mucus LM Ql (Urine sed)on Mucus Ql (Urine sed) 0 SEEN /hpf [facility] Work Phone: Nitrite Test strip Ql (U)on 08-09-2022 Nitrite Ql (U) Negative Negative [facility] Work Phone: No Panel Informationon 08-09 Estimated Creatinine Clearance Calc 81.20 ml/min [facility] Work Phone: Estimated GFR (MDRD) Amer 111 mL/min >60 [facility] Work Phone: Comment on above: GFR Calc Estimated GFR (MDRD) Non-Af Amer 91 mL/min >60 [facility] Work Phone: Comment on above: Non- GFR Calc Platelets bldon 08-09-2022 Platelets (Bld) [#/Vol] 224 10*3/uL 150-450 [facility] Work Phone: Protein Test strip Ql (U)on 08-09-2022 Protein Ql (U) Negative Negative [facility] Work Phone: Serum or plasma albumin sabino urement (mass/volume)on 08-09-2022 Albumin [Mass/Vol] 3.8 g/dL 3.2-5.0 [facility] Work Phone: Serum or plasma albumin/glob ulin mass ratioon 08-09-2022 Albumin/Globulin [Mass ratio] 1.1 {ratio} 0.9-2.4 [facility] Work Phone: [phone] Serum or plasma calcium sabino urement (mass/volume)on 08-09-2022 Calcium [Mass/Vol] 9.2 mg/dL 8.5-10.1 [facility] Work Phone: [phone] Serum or plasma choriogonado tropin detectionon 08-09-2022 HCG ( [place] [address] mIU/mL <4 [facility] Work Phone: Comment on above: hCG levels with Gest ational AgeGestational Age hCG mIU/mL (IU/L)0.2 - 1 week 5 - 501-2 weeks 50 - 5002-3 weeks 100 - 13801-4 weeks 500 - 771417-8 weeks 1000 - 558068-9 weeks 29908 - 100,0006-8 weeks 98021 - 200,0002-3 months 92748 - 100,000 Serum or plasma creatinine m easurement (mass/volume)on 08-09-2022 Creatinine [Mass/Vol] 0.82 mg/dL 0.55-1.02 [facility] Work Phone: Comment on above: The validity of the calculated GFR & GFRAA in patients over 70 years has not been determined. Clinical correlation is essential. Serum or plasma urea nitroge n measurement (mass/volume)on 08-09-2022 Urea nitrogen [Mass/Vol] 8 mg/dL 7-18 [facility] Work Phone: Squamous epithelial cells de tection in urine sediment by light microscopyon 08-09-2022 Epithelial cells.squamous LM Ql (Urine sed) 0-5 SEEN /hpf 5-10 [facility] Work Phone: Thin prep Papanicolaou smear with manual screeningon 08-09-2022 Thin prep Papanicolaou smear with manual screening 38 U/L 15-37 [facility] Work Phone: Thin prep Papanicolaou smear with manual screening 7 5-15 [facility] Work Phone: Urine blood detectionon 07-13 RBC Ql (U) 25 /ul Negative [facility] Work Phone: RBC Ql (U) 0 SEEN /hpf 0-5 [facility] Work Phone: Urine clarityon 08-09-2022 Clarity (U) Clear Clear [facility] Work Phone: Urine color determinationon 08-09-2022 Color (U) Yellow Yellow [facility] Work Phone: Urine glucose detectionon Glucose Ql (U) Normal mg/dl Normal [facility] Work Phone: Urine leukocyte esterase det ection by dipstickon 08-09-2022 Leukocyte esterase Test strip Ql (U) 25 /ul Negative [facility] Work Phone: Urine pHon 08-09-2022 pH (U) 7.0 [pH] 5.0 - 8.0 [facility] Work Phone: Urine sediment bacteria coun t by microscopy (number/high power field)on 08-09-2022 Bacteria LM.HPF (Urine sed) [#/Area] 0 /[HPF] None Seen [facility] Work Phone: Urine specific gravity measu rementon 08-09-2022 Specific gravity (U) [Rel density] 1.010 1.002-1.030 [facility] Work Phone: Urobilinogen Auto test strip Ql (U)on 08-09-2022 Urobilinogen Ql (U) Normal mg/dl Normal [facility] Work Phone: CBCon 08-04-2022 Hematocrit [...] - 10.7 10*3/uL [facility] Test Performed by [facility], [address] , [address] LAB [facility] HCG, QUANTITATIVE, on 08-04-2022 hCG Quant 3840 m[IU]/mL [facility] Comment on above: Females < 5 [...] gestational trophoblastic disease. Test Performed by [facility], [address] , [address] [facility] Hemogramon 08-04-2022 Erythrocyte distribution width (RBC) [Ratio] 12.8 % Normal 11.5-14.5 [facility] Comment on above: Performed By: #### H LIONEL QWNT5 #### [facility] [address] [place] [address] Hematocrit (Bld) [Volume fraction] 39.2 % Normal 35.0-47.0 [facility] Comment on above: Performed By: #### H LIONEL QWNT5 #### [facility] [address] [place] [address] Hemoglobin (Bld) [Mass/Vol] 13.4 g/dL Normal 11.7-16.0 [facility] Comment on above: Performed By: #### H Paul FLOWERSWNT5 #### [facility] [address] [place] [address] MCH (RBC) [Entitic mass] 31.4 pg Normal 26.0-34.0 [facility] Comment on above: Performed By: #### H EMOG, QWNT5 #### [facility] [address] [place] [address] MCHC 34.2 % Normal 32.0-36.0 [facility] Comment on above: Performed By: #### H EMOG, QWNT5 #### [facility] [address] [place] [address] MCV (RBC) [Entitic vol] 91.8 fL Normal 79.0-98.0 [facility] Comment on above: Performed By: #### H EMOG, QWNT5 #### [facility] [address] [place] [address] Platelet mean volume (Bld) [Entitic vol] 9.9 fL Normal 7.4-12.4 [facility] Comment on above: Result Comment: MPV is a calculated measurement using platelet volume ratio. Performed By: #### H EMOG, QWNT5 #### [facility] [address] [place] [address] Platelets (Bld) [#/Vol] 217 10*3/uL Normal 140-440 [facility] Comment on above: Performed By: #### H EMOG, QWNT5 #### [facility] [address] [place] [address] RBC (Bld) [#/Vol] 4.27 10*6/uL Normal 3.80-5.20 [facility] Comment on above: Performed By: #### H EMOG, QWNT5 #### [facility] [address] [place] [address] WBC (Bld) [#/Vol] 5.4 10*3/uL Normal 3.6-10.7 [facility] Comment on above: Performed By: #### H EMOG, QWNT5 #### [facility] [address] [place] [address] GELon 08-04-2022 GEL ABO Group: O Rh, Gel: POS Antibody Screen Gel: NEG Normal [facility] Comment on above: Performed By: #### P NGL #### [facility] TYPE AND SCREENon 1 ABO Grouping O [facility] Work Phone: Rh Type Positive [facility] Work Phone: Test Performed by [facility], [address] , [place], [place] [id number] [place] [address] [facility] Work Phone: US OB TRANSVAGINALon Patient Name: LUZ OLIVEIRA Ultrasound ACCESSION EXAM DATE/TIME PROCEDURE ORDERING PROVIDER [id number] 08/04/2022 12:05 EDT [place] [id number] -KATIRAI, ANIS Transvaginal CPT code 26356 Reason For Exam (US Transvaginal) 7 weeks [...] Transcribed Date and Time: 08/04/2022 12:31 [facility] Silas Abreu DO - 08/04/2022 Patient Name: LUZ OLIVEIRA Ultrasound ACCESSION EXAM DATE/TIME PROCEDURE ORDERING PROVIDER [id number] 08/04/2022 12:05 EDT [place] [id number] HARRISON Transvaginal CPT code 07065 Reason For Exam (US Transvaginal) 7 weeks [...] Ultrasound ACCESSION EXAM DATE/TIME PROCEDURE ORDERING PROVIDER [id number] 08/04/2022 12:05 EDT [place] [id number] HARRISON Transvaginal CPT code 77116 Reason For Exam (US Transvaginal) 7 weeks [...] Date and Time: 08/04/2022 12:31 Normal [facility] hCG Quantitativeon hCG Quantitative 3840 m[IU]/mL Normal [facility] Comment on above: Result Comment: Fema [...] gestational trophoblastic disease. Performed By: #### H [id number] #### [facility] [address] [address] [facility] CNCO Letter Text Normal [facility] CNPLizy 07-09-2022 [facility] LUZ OLIVEIRA ([id number]) 2000 F Date Time Provider Department 07/09/22 [...] (FLONASE) 50 mcg/actuation nasal spray Use 1 Imbler in each nostril once daily. 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 Absolute lymphocyte counton 06-29-2022 Lymphocytes Auto (Unsp spec) [#/Vol] 1.79 10*3/uL 0.83-4.51 [facility] Work Phone: Basophil percentageon 2021 Basophil percentage 0-5 SEEN /hpf 0-5 [facility] Work Phone: Basophils/100 WBC (Bld) 0.1 % 0-1 [facility] Work Phone: Chloride [Moles/Vol] 106 mmol/L 98-107 [facility] Work Phone: Eosinophils/100 WBC (Bld) 0.2 % 0-5 [facility] Work Phone: Glucose [Mass/Vol] 98 mg/dL 74-106 [facility] Work Phone: Neutrophils (Bld) [#/Vol] 6.1 10*3/uL 2.0-7.7 [facility] Work Phone: Neutrophils/100 WBC (Bld) 72.2 % 47-70 [facility] Work Phone: Potassium [Moles/Vol] 3.9 mmol/L 3.5-5.1 [facility] Work Phone: Sodium [Moles/Vol] 142 mmol/L 136-145 [facility] Work Phone: WBC (Bld) [#/Vol] 8.5 10*3/uL 4.4-11.0 [facility] Work Phone: Beta hCG serum qualon 2021 Beta HCG ( test) Ql Negative [facility] Work Phone: Bilirubin Test strip Ql (U)o n 06-29-2022 Bilirubin Ql (U) Negative Negative [facility] Work Phone: Blood erythrocytes count (nu mber/volume)on 06-29-2022 RBC (Bld) [#/Vol] 4.44 10*6/uL 4.2-5.4 [facility] Work Phone: Blood hemoglobin measurement (mass/volume)on 06-29-2022 Hemoglobin (Bld) [Mass/Vol] 13.7 g/dL 12.0-15.0 [facility] Work Phone: Blood lymphocytes/100 leukoc yteson 06-29-2022 Lymphocytes/100 WBC (Bld) 21.2 % 19-41 [facility] Work Phone: [phone] Blood monocytes/100 leukocyt eson 06-29-2022 Monocytes/100 WBC (Bld) 5.8 % 0-10 [facility] Work Phone: Blood platelet mean volumeon 06-29-2022 Platelet mean volume (Bld) [Entitic vol] 9.9 fL 6.2-12.0 [facility] Work Phone: Determination of erythrocyte mean corpuscular volume (MCV)on 06-29-2022 MCV (RBC) [Entitic vol] 90.5 fL 81-99 [facility] Work Phone: Hematocrit Auto (Bld) [Volum e fraction]on 06-29-2022 Hematocrit (Bld) [Volume fraction] 40.2 % 37-47 [facility] Work Phone: Ketones Test strip Ql (U)on 06-29-2022 Ketones Ql (U) Negative Negative [facility] Work Phone: Laboratory - Chemistry and C hemistry - challengeon 06-29-2022 CO2 [Moles/Vol] 28.0 mmol/L 21.0-32.0 [facility] Work Phone: Urea nitrogen/Creatinine [Mass ratio] 23.1 mg/mg 10-20 [facility] Work Phone: Laboratory - Hematology and Cell countson 06-29-2022 Erythrocyte distribution width (RBC) [Entitic vol] 41.0 fL 35.1-43.9 [facility] Work Phone: [phone] Erythrocyte distribution width (RBC) [Ratio] 12.7 % 11.6-14.6 [facility] Work Phone: [phone] Immature granulocytes/100 WBC (Bld) 0.500 % 0.0-0.9 [facility] Work Phone: [phone] Comment on above: IG% - Immature Granu locytes (promyelocytes, myelocytes and metamyelocytes) > 1% indicates that a LEFT SHIFT is Present. MCH (RBC) [Entitic mass] 30.9 pg 27.0-32.0 [facility] Work Phone: [phone] Nucleated RBC/100 WBC (Bld) [Ratio] 0 % 0-5 [facility] Work Phone: [phone] MCHC Auto (RBC) [Mass/Vol]on 06-29-2022 MCHC (RBC) [Mass/Vol] 34.1 g/dL 32-36 [facility] Work Phone: [phone] Mucus LM Ql (Urine sed)on Mucus Ql (Urine sed) 0 SEEN /hpf [facility] Work Phone: [phone] Nitrite Test strip Ql (U)on 06-29-2022 Nitrite Ql (U) Negative Negative [facility] Work Phone: [phone] Panel Informationon 06-29 Estimated Creatinine Clearance Calc 89.98 ml/min [facility] Work Phone: [phone] Estimated GFR (MDRD) Amer 126 mL/min >60 [facility] Work Phone: [phone] Comment on above: GFR Calc Estimated GFR (MDRD) Non-Af Amer 104 mL/min >60 [facility] Work Phone: [phone] Comment on above: Non- GFR Calc Platelets bldon 06-29-2022 Platelets (Bld) [#/Vol] 287 10*3/uL 150-450 [facility] Work Phone: [phone] Protein Test strip Ql (U)on 06-29-2022 Protein Ql (U) 30 mg/dl Negative [facility] Work Phone: Serum or plasma calcium sabino urement (mass/volume)on 06-29-2022 Calcium [Mass/Vol] 9.7 mg/dL 8.5-10.1 [facility] Work Phone: Serum or plasma creatinine m easurement (mass/volume)on 06-29-2022 Creatinine [Mass/Vol] 0.74 mg/dL 0.55-1.02 [facility] Work Phone: Comment on above: The validity of the calculated GFR & GFRAA in patients over 70 years has not been determined. Clinical correlation is essential. Serum or plasma urea nitroge n measurement (mass/volume)on 06-29-2022 Urea nitrogen [Mass/Vol] 17 mg/dL 7-18 [facility] Work Phone: Squamous epithelial cells de tection in urine sediment by light microscopyon 06-29-2022 Epithelial cells.squamous LM Ql (Urine sed) 0-5 SEEN /hpf 5-10 [facility] Work Phone: Thin prep Papanicolaou smear with manual screeningon 06-29-2022 Thin prep Papanicolaou smear with manual screening 8 5-15 [facility] Work Phone: Urine blood detectionon 06-11 RBC Ql (U) 25 /ul Negative [facility] Work Phone: RBC Ql (U) 0-5 SEEN /hpf 0-5 [facility] Work Phone: Urine clarityon 06-29-2022 Clarity (U) Clear Clear [facility] Work Phone: Urine color determinationon 06-29-2022 Color (U) Yellow Yellow [facility] Work Phone: Urine glucose detectionon Glucose Ql (U) Normal mg/dl Normal [facility] Work Phone: Urine leukocyte esterase det ection by dipstickon 06-29-2022 Leukocyte esterase Test strip Ql (U) 25 /ul Negative [facility] Work Phone: Urine pHon 06-29-2022 pH (U) 6.5 [pH] 5.0 - 8.0 [facility] Work Phone: Urine sediment bacteria coun t by microscopy (number/high power field)on 06-29-2022 Bacteria LM.HPF (Urine sed) [#/Area] 0 /[HPF] None Seen [facility] Work Phone: Urine specific gravity measu rementon 06-29-2022 Specific gravity (U) [Rel density] 1.010 1.002-1.030 [facility] Work Phone: Urobilinogen Auto test strip Ql (U)on 06-29-2022 Urobilinogen Ql (U) Normal mg/dl Normal [facility] Work Phone: CBC W Auto Differential pane l (Bld)on 05-31-2022 Basophils (Bld) [#/Vol] 10*3/uL Normal <0.11 [facility] Comment on above: Order Comment: Speci men Type: BLOOD SPECIMENOrdering Facility: [facility] Address: [address] [address] Performed By: #### 5 7021-8 ####[facility] LABORATORYCLIA [id number] [address] [place] Basophils/100 WBC (Bld) 0.0 % Normal [facility] Comment on above: Order Comment: Speci men Type: BLOOD SPECIMENOrdering Facility: [facility] Address: [address] [address] Performed By: #### 5 7021-8 ####[facility] LABORATORYCLIA [id number] [address] [place] Differential cell count method Nom (Bld) Auto Normal [facility] Comment on above: Order Comment: Speci men Type: BLOOD SPECIMENOrdering Facility: [facility] Address: [address] [address] Performed By: #### 5 7021-8 ####[facility]ORY[facility]IA [id number] [address] [place] Eosinophils (Bld) [#/Vol] 10*3/uL Normal <0.46 [facility] Comment on above: Order Comment: Speci men Type: BLOOD SPECIMENOrdering Facility: [facility] Address: [address] [place] [address] Performed By: #### 5 7021-8 ####[facility] LABORATORYCLIA [id number] [address] Eosinophils/100 WBC (Bld) 0.2 % Normal [facility] Comment on above: Order Comment: Speci men Type: BLOOD SPECIMENOrdering Facility: [facility] Address: [address] [place] [address] Performed By: #### 5 7021-8 ####[facility] LABORATORYCLIA [id number] [address] Erythrocyte distribution width (RBC) [Ratio] 12.5 % Normal 11.5-15.0 [facility] Comment on above: Order Comment: Speci men Type: BLOOD SPECIMENOrdering Facility: [facility] Address: [address] [place] [address] Performed By: #### 5 7021-8 ####[facility] LABORATORYCLIA [id number] [address] [place] Hematocrit (Bld) [Volume fraction] 38.8 % Normal 36.0-46.0 [facility] Comment on above: Order Comment: Speci men Type: BLOOD SPECIMENOrdering Facility: [facility] Address: [address] [place] [address] Performed By: #### 5 7021-8 ####[facility] LABORATORYCLIA [id number] [address] Hemoglobin (Bld) [Mass/Vol] 13.4 g/dL Normal 11.5-15.5 [facility] Comment on above: Order Comment: Speci men Type: BLOOD SPECIMENOrdering Facility: [facility] Address: [address] [place] [address] Performed By: #### 5 7021-8 ####[facility]ORYCLIA [id number] [address] IMMATURE GRAN % 0.2 % Normal [facility] Comment on above: Order Comment: Speci men Type: BLOOD SPECIMENOrdering Facility: [facility] Address: [address] [place] [address] Performed By: #### 5 7021-8 ####[facility] LABORATORYCLIA [id number] [address] IMMATURE GRAN ABS <0.03 Normal <0.10 [facility] Comment on above: Order Comment: Speci men Type: BLOOD SPECIMENOrdering Facility: [facility] Address: [address] [place] [address] Performed By: #### 5 7021-8 ####[facility] LABORATORYCLIA [id number] [address] Lymphocytes (Bld) [#/Vol] 1.08 10*3/uL Normal 1.00-4.00 [facility] Comment on above: Order Comment: Speci men Type: BLOOD SPECIMENOrdering Facility: [facility] Address: [address] [place] [address] Performed By: #### 5 7021-8 ####[facility] LABORATORYCLIA [id number] [address] Lymphocytes/100 WBC (Bld) 26.3 % Normal [facility] Comment on above: Order Comment: Speci men Type: BLOOD SPECIMENOrdering Facility: [facility] Address: [address] [place] [address] Performed By: #### 5 7021-8 ####[facility]ORYCLIA [id number] [address] [place] MCH (RBC) [Entitic mass] 30.2 pg Normal 26.0-34.0 [facility] Comment on above: Order Comment: Speci men Type: BLOOD SPECIMENOrdering Facility: [facility] Address: [address] [place] [address] Performed By: #### 5 7021-8 ####[facility] LABORATORYCLIA [id number] [address] STATES OF [facility] MCHC (RBC) [Mass/Vol] 34.5 g/dL Normal 30.5-36.0 [facility] Comment on above: Order Comment: Speci men Type: BLOOD SPECIMENOrdering Facility: [facility] Address: [address] [place] [address] Performed By: #### 5 7021-8 ####[facility] LABORATORYCLIA [id number] [address] [place] MCV (RBC) [Entitic vol] 87.6 fL Normal 80.0-100.0 [facility] Comment on above: Order Comment: Speci men Type: BLOOD SPECIMENOrdering Facility: [facility] Address: [address] [place] [address] Performed By: #### 5 7021-8 ####[facility] LABORATORYCLIA [id number] [address] OF [facility] Monocytes (Bld) [#/Vol] 0.34 10*3/uL Normal <0.87 [facility] Comment on above: Order Comment: Speci men Type: BLOOD SPECIMENOrdering Facility: [facility] Address: [address] [place] [address] Performed By: #### 5 7021-8 ####[facility] LABORATORYCLIA [id number] [address] Monocytes/100 WBC (Bld) 8.3 % Normal [facility] Comment on above: Order Comment: Speci men Type: BLOOD SPECIMENOrdering Facility: [facility] Address: [address] [place] [address] Performed By: #### 5 7021-8 ####[facility] LABORATORYCLIA [id number] [address] [place] Neutrophils (Bld) [#/Vol] 2.66 10*3/uL Normal 1.45-7.50 [facility] Comment on above: Order Comment: Speci men Type: BLOOD SPECIMENOrdering Facility: [facility] Address: [address] [place] [address] Performed By: #### 5 7021-8 ####[facility] LABORATORYCLIA [id number] [address] [place] Neutrophils/100 WBC (Bld) 65.0 % Normal [facility] Comment on above: Order Comment: Speci men Type: BLOOD SPECIMENOrdering Facility: [facility] Address: [address] [place] [address] Performed By: #### 5 7021-8 ####[facility] LABORATORYCLIA [id number] [address] [place] Nucleated RBC (Bld) [#/Vol] 10*3/uL Normal <0.01 [facility] Comment on above: Order Comment: Speci men Type: BLOOD SPECIMENOrdering Facility: [facility] Address: [address] [place] [address] Performed By: #### 5 7021-8 ####[facility] LABORATORYCLIA [id number] [address] [place] Nucleated RBC/100 WBC (Bld) [Ratio] 0.0 /100 WBC Normal [facility] Comment on above: Order Comment: Speci men Type: BLOOD SPECIMENOrdering Facility: [facility] Address: [address] [place] [address] Performed By: #### 5 7021-8 ####[facility] LABORATORYCLIA [id number] [address] [place] Platelet mean volume (Bld) [Entitic vol] 9.7 fL Normal 9.0-12.7 [facility] Comment on above: Order Comment: Speci men Type: BLOOD SPECIMENOrdering Facility: [facility] Address: [address] [address] Performed By: #### 5 7021-8 ####[facility] LABORATORYCLIA [id number] [address] OF [facility] Platelets (Bld) [#/Vol] 178 10*3/uL Normal 150-400 [facility] Comment on above: Order Comment: Speci men Type: BLOOD SPECIMENOrdering Facility: [facility] Address: [address] [place] [address] Performed By: #### 5 7021-8 ####[facility] LABORATORYCLIA [id number] [address] [place] RBC (Bld) [#/Vol] 4.43 10*6/uL Normal 3.90-5.20 [facility] Comment on above: Order Comment: Speci men Type: BLOOD SPECIMENOrdering Facility: [facility] Address: [address] [place] [address] Performed By: #### 5 7021-8 ####[facility] LABORATORYCLIA [id number] [address] OF [facility] WBC (Bld) [#/Vol] 4.10 10*3/uL Normal 3.70-11.00 [facility] Comment on above: Order Comment: Speci men Type: BLOOD SPECIMENOrdering Facility: [facility] Address: [address] [place] [address] Performed By: #### 5 7021-8 ####[facility] LABORATORYCLIA [id number] [address] Comprehensive metabolic 2000 panelon 05-31-2022 Albumin [Mass/Vol] 4.5 g/dL Normal 3.9-4.9 [facility] Comment on above: Order Comment: Speci men Type: BLOOD SPECIMENOrdering Facility: [facility] Address: [address] [place] [address] Performed By: #### 3 040-3, 34506-1, 75968-8 ####[facility] LABORATORYCLIA [id number] [address] [place] ALP [Catalytic activity/Vol] 60 U/L Normal 34-123 [facility] Comment on above: Order Comment: Speci men Type: BLOOD SPECIMENOrdering Facility: [facility] Address: [address] [place] [address] Performed By: #### 3 040-3, 71667-7, ####[facility] LABORATORYCLIA [id number] [address] STATES OF [facility] ALT With P-5'-P [Catalytic activity/Vol] 55 U/L High 7-38 [facility] Comment on above: Order Comment: Speci men Type: BLOOD SPECIMENOrdering Facility: [facility] Address: [address] [place] [address] Performed By: #### 3 040-3, 03864-9, ####[facility] LABORATORYCLIA [id number] [address] Anion gap [Moles/Vol] 12 mmol/L Normal 9-18 [facility] Comment on above: Order Comment: Speci men Type: BLOOD SPECIMENOrdering Facility: [facility] Address: [address] [place] [address] Performed By: #### 3 040-3, 78901-7, ####[facility] LABORATORYCLIA [id number] [address] STATES OF [facility] AST With P-5'-P [Catalytic activity/Vol] 57 U/L High 13-35 [facility] Comment on above: Order Comment: Speci men Type: BLOOD SPECIMENOrdering Facility: [facility] Address: [address] [place] [address] Performed By: #### 3 040-3, 12861-8, ####[facility] LABORATORYCLIA [id number] [place] [address] [place] Bilirubin [Mass/Vol] 0.5 mg/dL Normal 0.2-1.3 [facility] Comment on above: Order Comment: Speci men Type: BLOOD SPECIMENOrdering Facility: [facility] Address: [address] [place] [address] Performed By: #### 3 040-3, , ####[facility] LABORATORYCLIA [id number] [place] [address] [place] Calcium [Mass/Vol] 8.9 mg/dL Normal 8.5-10.2 [facility] Comment on above: Order Comment: Speci men Type: BLOOD SPECIMENOrdering Facility: [facility] Address: [address] [place] [address] Performed By: #### 3 040-3, , ####[facility] LABORATORYCLIA [id number] [place] [address] [place] Chloride [Moles/Vol] 102 mmol/L Normal 97-105 [facility] Comment on above: Order Comment: Speci men Type: BLOOD SPECIMENOrdering Facility: [facility] Address: [address] [place] [address] Performed By: #### 3 040-3, , ####[facility] LABORATORYCLIA [id number] [place] [address] [place] CO2 [Moles/Vol] 25 mmol/L Normal 22-30 [facility] Comment on above: Order Comment: Speci men Type: BLOOD SPECIMENOrdering Facility: [facility] Address: [address] [place] [address] Performed By: #### 3 040-3, , ####[facility] LABORATORYCLIA [id number] [place] [address] [place] Creatinine [Mass/Vol] 0.74 mg/dL Normal 0.58-0.96 [facility] Comment on above: Order Comment: Speci men Type: BLOOD SPECIMENOrdering Facility: [facility] Address: [address] [place] [address] Performed By: #### 3 040-3, 59205-9, ####[facility]ENTERCLIA [id number] [address] ESTIMATED GLOMERULAR FILTRATION RATE 117 mL/min/1.73m??? Normal >=60 [facility] Comment on above: Order Comment: Eloise lopez Type: BLOOD SPECIMENOrdering Facility: [facility] Address: [address] [place] [address] Result Comment: Tierra mated Glomerular Filtration Rate [...] actual GFR. Performed By: #### 3 040-3, 22719-8, ####[facility] SERVICESIA [id number] [address] Glucose [Mass/Vol] 91 mg/dL Normal 74-99 [facility] Comment on above: Order Comment: Eloise lopez Type: BLOOD SPECIMENOrdering Facility: [facility] Address: [address] [place] [address] Result Comment: The [place] [employer] (ADA) provides guidance for cutoff [...] Standards of Medical Care in Diabetes 2016, [place] [employer]. Diabetes Care. 2016.39(Suppl 1). Performed By: #### 3 040-3, 69478-4, ####[facility] LABORATORYCLIA [id number] [address] [place] Potassium [Moles/Vol] 3.6 mmol/L Low 3.7-5.1 [facility] Comment on above: Order Comment: Speci men Type: BLOOD SPECIMENOrdering Facility: [facility] Address: [address] [place] [address] Performed By: #### 3 040-3, 74510-1, ####[facility] LABORATORYCLIA [id number] [address] [place] Protein [Mass/Vol] 6.7 g/dL Normal 6.3-8.0 [facility] Comment on above: Order Comment: Speci men Type: BLOOD SPECIMENOrdering Facility: [facility] Address: [address] [place] [address] Performed By: #### 3 040-3, 19663-2, ####[facility] LABORATORYCLIA [id number] [address] STATES OF [facility] Sodium [Moles/Vol] 139 mmol/L Normal 136-144 [facility] Comment on above: Order Comment: Speci men Type: BLOOD SPECIMENOrdering Facility: [facility] Address: [address] [place] [address] Performed By: #### 3 040-3, 87011-5, ####[facility] LABORATORYCLIA [id number] [address] [place] Urea nitrogen [Mass/Vol] 7 mg/dL Normal 7-21 [facility] Comment on above: Order Comment: Speci men Type: BLOOD SPECIMENOrdering Facility: [facility] Address: [address] [place] [address] Performed By: #### 3 040-3, 13740-7, ####[facility] LABORATORYCLIA [id number] [place] [address] [place] ED NOTEon 05-31-2022 ED NOTE HNO ID: [id number] Author: Agueda Meng RN Service: Emergency Medicine Author Type: Registered Nurse Type: ED Notes Filed: 05/31/2022 2:42 PM Note Text: Pt alert and oriented x 4, speaking in full sentences with unlabored breathing. Pt verbalizes understanding of discharge paperwork. Pt ambulated from department without difficulty. [facility] ED NOTE HNO ID: [id number] Author: Agueda Meng RN Service: Emergency Medicine [...] patient. Is at bedside at this time. [facility] ED NOTE HNO ID: [id number] Author: Agueda Meng RN Service: Emergency Medicine Author Type: Registered Nurse Type: ED Notes Filed: 05/31/2022 12:14 PM Note Text: POC BG 80 Normal [facility] ED NOTE HNO ID: [id number] Author: Agueda Meng RN Service: Emergency Medicine Author Type: Registered Nurse Type: ED Notes Filed: 05/31/2022 11:36 AM Note Text: Pt c/o weakness along with generalized illness symptoms. Pt placed on the bedside panel monitor at this time. [facility] ED NOTE HNO ID: [id number] Author: Danuta Staley RN Service: ? Author Type: Registered Nurse Type: ED Notes Filed: 05/31/2022 11:04 AM Note Text: Bed: 46-ED Expected date: Expected time: Means of arrival: Comments: triage Normal [facility] ED PROV NOTEon 05-31-2022 ED PROV NOTE HNO ID: [id number] Author: Hiwot Hudson MD Service: Emergency Medicine [...] vaccinated against COVID. She works at a [employer]. Possible sick contacts no recent travel. Vitals [...] Medical Center ED PROV NOTE HNO ID: [id number] Author: Hiwot Hudson MD Service: Emergency Medicine [...] Diagnosis Date Cognitive disorder IEP per the [facility] Kidney stone [...] QTC Calculation(Bazett) : 486 ms Calculated P Basalt : 23 degrees Calculated R Basalt : 58 degrees Calculated T Basalt : 27 degrees NORMAL SINUS RHYTHM NONSPECIFIC T WAVE ABNORMALITY PROLONGED QT ABNORMAL ECG NO PREVIOUS ECGS AVAILABLE Confirmed by KAUSHIK GUADALUPE MD ([id number]) on 06/04/2022 3:38:07 AM NAME : LUZ OLIVEIRA PID : [id number] : 2000 Gender : Female Race : ORD : Procedure Date : May 31 2022 13:06:20 Edit Date : Jun 04 2022 03:38:08 Diagnosis: NORMAL SINUS RHYTHM NONSPECIFIC T WAVE ABNORMALITY PROLONGED QT ABNORMAL ECG NO PREVIOUS ECGS AVAILABLE Confirmed by KAUSHIK GUADALUPE MD ([id number]) on 06/04/2022 3:38:07 AM Test Reason : Location : 4 : [facility] Overread By : KAUSHIK GUADALUPE MD Edited By : KAUSHIK GUADALUPE MD Referred By : , Acquired by : KIRTI FRIED Normal [facility] HCG Preg Ur Qlon 05-31-2022 HCG ( test) Ql (U) Negative Normal Negative [facility] Comment on above: Order Comment: Speci men Type: URINE SPECIMENOrdering Facility: [facility] Address: [address] [place], [place] [id number] Result Comment: This test is intended to aid in the early detection of . Very dilute urine samples, as indicated by a low specific gravity, may not contain patient registration representative levels of hCG. This test detects [...] Performed By: #### 2 106-3 ####[facility] LABORATORYCLIA [id number] [place] [address] [place] Lipase SerPl-cCncon 08-21-20 22 Lipase [Catalytic activity/Vol] 17 U/L Normal 16-61 [facility] Comment on above: Order Comment: Speci men Type: BLOOD SPECIMENOrdering Facility: [facility] Address: [address] [place] [address] Performed By: #### 3 040-3, 78676-3, 57757-9 ####[facility] LABORATORYCLIA [id number] [address] OF [facility] Magnesium SerPl-mCncon 05-31 Magnesium [Mass/Vol] 1.8 mg/dL Normal 1.7-2.3 [facility] Comment on above: Order Comment: Speci men Type: BLOOD SPECIMENOrdering Facility: [facility] Address: [address] [place] [address] Performed By: #### 3 040-3, 26272-7, 04584-4 ####[facility] LABORATORYCLIA [id number] [address] STATES OF [facility] ROUTINE FLU A/B + RSVon 05-12 FLUAV RNA CHICHO+probe Ql (Unsp spec) Negative Normal Negative for Influenza A by RT-PCR [facility] Comment on above: Order Comment: Speci men Type: SWAB OF INTERNAL NOSEOrdering Facility: [facility] Address: [address] [place] [address] Performed By: #### R TFRSV, 04143-2 ####[facility] LABCLIA [id number] [address] [place] FLUBV RNA CHICHO+probe Ql (Unsp spec) Negative Normal Negative for Influenza B by RT-PCR [facility] Comment on above: Order Comment: Speci men Type: SWAB OF INTERNAL NOSEOrdering Facility: [facility] Address: [address] [place] [address] Performed By: #### R TFRSV, 74199-7 ####[facility] LABCLIA [id number] [address] [place] RSV A RNA CHICHO+probe Ql (Unsp spec) Negative Normal Negative for Respiratory Syncytial Virus (RSV) by PCR [facility] Comment on above: Order Comment: Speci men Type: SWAB OF INTERNAL NOSEOrdering Facility: [facility] Address: [address] [place] [address] Performed By: #### R TFRSV, 23780-2 ####[facility] LABCLIA [id number] [address] [place] SARS-CoV-2 RNA Resp Ql CHICHO+p robeon 05-31-2022 SARS-CoV-2 (COVID-19) RNA CHICHO+probe Ql (Resp) SARS-CoV-2 (Agent of COVID-19) Detected by RT-PCR or equivalent method. Abnormal Not Detected [facility] Comment on above: Order Comment: Speci men Type: SWAB OF INTERNAL NOSEOrdering Facility: [facility] Address: [address] [place] [address] Result Comment: This test was developed and its performance characteristics determined by [facility]'s Alejandro Jeffry [facility] Pathology and Laboratory Medicine [place]. This test has been authorized by FDA under an Emergency Use Authorization (EUA). This test has been validated in accordance with the FDA's Guidance Document Policy for Diagnostics Testing in Laboratories Certified to Perform High Complexity Testing under CLIA prior to Emergency use Authorization for Coronavirus Disease 2019 during the Public Health Emergency issued on December 09, 2019. Test performed by [facility], [facility] Laboratory [facility] [place], [address] [place] [address]. Performed By: #### R TFRSV, 96647-9 ####[facility] LABCLIA [id number] [address] OF [place] Urinalysis complete panel (U )on 05-31-2022 Bilirubin Ql (U) Negative Normal Negative [facility] Comment on above: Order Comment: Speci men Type: URINE SPECIMENOrdering Facility: [facility] Address: [address] [place] [address] Performed By: #### 2 4356-8 ####[facility] LABORATORYCLIA [id number] Clarity (Unsp spec) Clear Normal Clear [facility] Comment on above: Order Comment: Speci men Type: URINE SPECIMENOrdering Facility: [facility] Address: [address] [place] [address] Performed By: #### 2 4356-8 ####[facility] LABORATORYCLIA [id number] [address] Color (U) Colorless Normal yellow [facility] Comment on above: Order Comment: Speci men Type: URINE SPECIMENOrdering Facility: [facility] Address: [address] [place] [address] Performed By: #### 2 4356-8 ####[facility] LABORATORYCLIA [id number] [address] Glucose Test strip (U) [Mass/Vol] Negative Normal Negative [facility] Comment on above: Order Comment: Speci men Type: URINE SPECIMENOrdering Facility: [facility] Address: [address] [place] [address] Performed By: #### 2 4356-8 ####[facility] LABORATORYCLIA [id number] [address] Hemoglobin Ql (U) Negative Normal Negative [facility] Comment on above: Order Comment: Speci men Type: URINE SPECIMENOrdering Facility: [facility] Address: [address] [address] Performed By: #### 2 4356-8 ####[facility] LABORATORYCLIA [id number] [address] Ketones Ql (U) 2+ Abnormal Negative [facility] Comment on above: Order Comment: Speci men Type: URINE SPECIMENOrdering Facility: [facility] Address: [address] [address] Performed By: #### 2 4356-8 ####[facility]ATORYCLIA [id number] [address] Leukocyte esterase Test strip Ql (U) Negative Normal Negative [facility] Comment on above: Order Comment: Speci men Type: URINE SPECIMENOrdering Facility: [facility] Address: [address] [place] [address] Performed By: #### 2 4356-8 ####[facility] LABORATORYCLIA [id number] [address] [place] Nitrite Ql (U) Negative Normal Negative [facility] Comment on above: Order Comment: Speci men Type: URINE SPECIMENOrdering Facility: [facility] Address: [address] [place] [address] Performed By: #### 2 4356-8 ####[facility] LABORATORYCLIA [id number] [address] [place] pH (U) 7.5 [pH] Normal 5.0-8.0 [facility] Comment on above: Order Comment: Speci men Type: URINE SPECIMENOrdering Facility: [facility] Address: [address] [place] [address] Performed By: #### 2 4356-8 ####[facility] LABORATORYCLIA [id number] [address] Protein (U) [Mass/Vol] Negative Normal Negative [facility] Comment on above: Order Comment: Speci men Type: URINE SPECIMENOrdering Facility: [facility] Address: [address] [place] [address] Performed By: #### 2 4356-8 ####[facility] LABORATORYCLIA [id number] [address] [place] RBC LM.HPF (Urine sed) [#/Area] 0-3 /HPF Normal 0-3 /HPF [facility] Comment on above: Order Comment: Speci men Type: URINE SPECIMENOrdering Facility: [facility] Address: [address] [place] [address] Performed By: #### 2 4356-8 ####[facility] LABORATORYCLIA [id number] [address] Urobilinogen Ql (U) Normal Normal Negative [facility] Comment on above: Order Comment: Speci men Type: URINE SPECIMENOrdering Facility: [facility] Address: [address] [place] [address] Performed By: #### 2 4356-8 ####[facility] LABORATORYCLIA [id number] [address] WBC LM.HPF (Urine sed) [#/Area] 0-5 /HPF Normal 0-5 /HPF [facility] Comment on above: Order Comment: Speci men Type: URINE SPECIMENOrdering Facility: [facility] Address: [address] [place] [address] Performed By: #### 2 4356-8 ####[facility]ENTERCL[facility] [id number] [address] Urinalysis complete pnl Uron 05-31-2022 Specific gravity (U) [Rel density] 1.005 Normal 1.005-1.030 [facility] Comment on above: Order Comment: Speci men Type: URINE SPECIMENOrdering Facility: [facility] Address: [address] [place] [address] Performed By: #### 2 4356-8 ####[facility] CENTERCLIA [id number] [address] Result Comment: If s pecific gravity is <1.005 then results may be falsely negative. Serum HCG is recommended. Performed By: #### 2 106-3 ####[facility] LABORATORYCLIA [id number] [address] ALLIED HEALTHon 12-31-2021 ALLIED HEALTH HNO ID: [id number] Author: RT Tierney(R) Service: Radiology Author Type: Hog Sticker Type: Allied Health Filed: 12/31/2021 7:25 PM [...] PERIPHERAL IV DATA: Inpatient - refer to [facility] documentation RADIOLOGY DEPARTMENT: CT; Exam(s) Completed: Abdomen/Pelvis [...] above: Performed By: #### 6 30-4 #### [facility]OR[facility]ORY CLIA [id number] [address] [place] [address] [place] CBC W Auto Differential pane l (Bld)on 12-31-2021 Basophils (Bld) [#/Vol] 10*3/uL Normal <0.11 [facility] Comment on above: Order Comment: Speci men Type: BLOOD SPECIMENOrdering Facility: [facility] Address: [address] [place] [address] Performed By: #### 5 7021-8 ####[facility] LABCLIA [id number] [place] [address] [place] [facility] Basophils/100 WBC (Bld) 0.1 % Normal [facility] Comment on above: Order Comment: Speci men Type: BLOOD SPECIMENOrdering Facility: [facility] Address: [address] [place] [address] Performed By: #### 5 7021-8 ####[facility] LABCLIA [id number] [facility], [facility]254 [facility] Differential cell count method Nom (Bld) Auto Normal [facility] Comment on above: Order Comment: Speci men Type: BLOOD SPECIMENOrdering Facility: [facility] Address: [address] [place] [address] Performed By: #### 5 7021-8 ####[facility] LABCLIA [id number] [facility], [facility]254 [place] Eosinophils (Bld) [#/Vol] 0.03 10*3/uL Normal <0.46 [facility] Comment on above: Order Comment: Speci men Type: BLOOD SPECIMENOrdering Facility: [facility] Address: [address] [place] [address] Performed By: #### 5 7021-8 ####[facility] LABCLIA [id number] [facility], [address] Eosinophils/100 WBC (Bld) 0.3 % Normal [facility] Comment on above: Order Comment: Speci men Type: BLOOD SPECIMENOrdering Facility: [facility] Address: [address] [place] [address] Performed By: #### 5 7021-8 ####[facility] LABCLIA [id number] [place] [address] [place] Erythrocyte distribution width (RBC) [Ratio] 12.0 % Normal 11.5-15.0 [facility] Comment on above: Order Comment: Speci men Type: BLOOD SPECIMENOrdering Facility: [facility] Address: [address] [place] [address] Performed By: #### 5 7021-8 ####[facility] LABCLIA [id number] [place] [address] [place] Hematocrit (Bld) [Volume fraction] 40.3 % Normal 36.0-46.0 [facility] Comment on above: Order Comment: Speci men Type: BLOOD SPECIMENOrdering Facility: [facility] Address: [address] [place] [address] Performed By: #### 5 7021-8 ####[facility] LABCLIA [id number] [place] [address] [place] Hemoglobin (Bld) [Mass/Vol] 13.8 g/dL Normal 11.5-15.5 [facility] Comment on above: Order Comment: Speci men Type: BLOOD SPECIMENOrdering Facility: [facility] Address: [address] [place] [address] Performed By: #### 5 7021-8 ####[facility] LABCLIA [id number] [facility] [place] [address] [place] Lymphocytes (Bld) [#/Vol] 1.98 10*3/uL Normal 1.00-4.00 [facility] Comment on above: Order Comment: Speci men Type: BLOOD SPECIMENOrdering Facility: [facility] Address: [address] [place] [address] Performed By: #### 5 7021-8 ####[facility] LABCLIA [id number] [place] [address] [facility] OF [place] Lymphocytes/100 WBC (Bld) 20.3 % Normal [facility] Comment on above: Order Comment: Speci men Type: BLOOD SPECIMENOrdering Facility: [facility] Address: [address] [place] [address] Performed By: #### 5 7021-8 ####[facility] LABCLIA [id number] [place] [address] [place] MCH (RBC) [Entitic mass] 30.7 pg Normal 26.0-34.0 [facility] Comment on above: Order Comment: Speci men Type: BLOOD SPECIMENOrdering Facility: [facility] Address: [address] [place] [address] Performed By: #### 5 7021-8 ####[facility] LABCLIA [id number] [address] [place] MCHC (RBC) [Mass/Vol] 34.2 g/dL Normal 30.5-36.0 [facility] Comment on above: Order Comment: Speci men Type: BLOOD SPECIMENOrdering Facility: [facility] Address: [address] [place] [address] Performed By: #### 5 7021-8 ####[facility] LABCLIA [id number] [address] [place] MCV (RBC) [Entitic vol] 89.6 fL Normal 80.0-100.0 [facility] Comment on above: Order Comment: Speci men Type: BLOOD SPECIMENOrdering Facility: [facility] Address: [address] [place] [address] Performed By: #### 5 7021-8 ####[facility] LABCLIA [id number] [place] [id number] [facility] Monocytes (Bld) [#/Vol] 0.70 10*3/uL Normal <0.87 [facility] Comment on above: Order Comment: Speci men Type: BLOOD SPECIMENOrdering Facility: [facility] Address: [address] [place] [address] Performed By: #### 5 7021-8 ####[facility] LABCLIA [id number] [place] [address] [place] Monocytes/100 WBC (Bld) 7.2 % Normal [facility] Comment on above: Order Comment: Speci men Type: BLOOD SPECIMENOrdering Facility: [facility] Address: [address] [place] [address] Performed By: #### 5 7021-8 ####[facility] LABCLIA [id number] [place] [address] [place] Neutrophils (Bld) [#/Vol] 7.02 10*3/uL Normal 1.45-7.50 [facility] Comment on above: Order Comment: Speci men Type: BLOOD SPECIMENOrdering Facility: [facility] Address: [address] [place] [address] Performed By: #### 5 7021-8 ####[facility] LABCLIA [id number] [place] [address] [place] Neutrophils/100 WBC (Bld) 72.1 % Normal [facility] Comment on above: Order Comment: Speci men Type: BLOOD SPECIMENOrdering Facility: [facility] Address: [address] [place] [address] Performed By: #### 5 7021-8 ####[facility] LABCLIA [id number] [place] [address] [place] Platelet mean volume (Bld) [Entitic vol] 9.7 fL Normal 9.0-12.7 [facility] Comment on above: Order Comment: Speci men Type: BLOOD SPECIMENOrdering Facility: [facility] Address: [address] [place] [address] Performed By: #### 5 7021-8 ####[facility] LABCLIA [id number] [place] [address] [place] Platelets (Bld) [#/Vol] 251 10*3/uL Normal 150-400 [facility] Comment on above: Order Comment: Speci men Type: BLOOD SPECIMENOrdering Facility: [facility] Address: [address] [place] [address] Performed By: #### 5 7021-8 ####[facility] LABCLIA [id number] [place] [address] [facility] RBC (Bld) [#/Vol] 4.50 10*6/uL Normal 3.90-5.20 [facility] Comment on above: Order Comment: Speci men Type: BLOOD SPECIMENOrdering Facility: [facility] Address: [address] [place] [address] Performed By: #### 5 7021-8 ####[facility] LABCLIA [id number] [place] [id number] [facility] WBC (Bld) [#/Vol] 9.74 10*3/uL Normal 3.70-11.00 [facility] Comment on above: Order Comment: Speci men Type: BLOOD SPECIMENOrdering Facility: [facility] Address: [address] [place] [address] Performed By: #### 5 7021-8 ####[facility] LABCLIA [id number] [place] [address] [facility] [address] ABD/PEL W IVCONon 12-31- 022 CT ABD/PEL W IVCON * * *Final Report* * * DATE OF EXAM: Dec 31 2021 7:25PM [facility] 0530 - CT ABD/PEL W IVCON [...] Tissues: No significant finding. Lower thorax: Unremarkable. Application Development Project Manager (topogram) images: No additional findings. IMPRESSION: No acute abnormality Atrophic left kidney with cortical scarring and suspected small nonobstructing calculi. Findings may be related to chronic reflux disease or infection Hepatic steatosis Operator Lights: PSCB Transcribe Date/Time: Dec 31 2021 7:37P [...] Comment: Speci men Type: BLOOD SPECIMENOrdering Facility: [facility] Address: [address] [place] [address] Performed By: #### 2 4323-8, 82628-2 ####[facility] LABCLIA [id number] [place] [address] [place] ALP [Catalytic activity/Vol] 74 U/L Normal 46-116 [facility] Comment on above: Order Comment: Speci men Type: BLOOD SPECIMENOrdering Facility: [facility] Address: [address] [place], [place] [address] Performed By: #### 2 4328, ####[facility] LABCLIA [id number] [facility] [address] [place] ALT With P-5'-P [Catalytic activity/Vol] 55 U/L Normal 12-78 [facility] Comment on above: Order Comment: Speci men Type: BLOOD SPECIMENOrdering Facility: [facility] Address: [address] [place] [address] Performed By: #### 2 8, ####[facility] LABCLIA [id number] [place] [address] [place] Anion gap [Moles/Vol] 2 mmol/L Low 8-16 [facility] Comment on above: Order Comment: Speci men Type: BLOOD SPECIMENOrdering Facility: [facility] Address: [address] [place] [address] Performed By: #### 2 8, ####[facility] LABCLIA [id number] [facility] [place] [address] [place] AST With P-5'-P [Catalytic activity/Vol] 29 U/L Normal 15-46 [facility] Comment on above: Order Comment: Speci men Type: BLOOD SPECIMENOrdering Facility: [facility] Address: [address] [place], [place] [address] Result Comment: Spec imen slightly hemolyzed. Performed By: #### 2 432-8, ####[facility] LABCLIA [id number] [place] [address] [place] Bilirubin [Mass/Vol] 0.2 mg/dL Normal 0.2-1.0 [facility] Comment on above: Order Comment: Speci men Type: BLOOD SPECIMENOrdering Facility: [facility] Address: [address] [place] [address] Performed By: #### 2 4323-8, ####[facility] LABCLIA [id number] [place] [address] [place] Calcium [Mass/Vol] 9.1 mg/dL Normal 8.5-10.1 [facility] Comment on above: Order Comment: Speci men Type: BLOOD SPECIMENOrdering Facility: [facility] Address: [address] [place] [address] Performed By: #### 2 4328, ####[facility] LABCLIA [id number] [place] [address] [place] Chloride [Moles/Vol] 100 mmol/L Normal 98-107 [facility] Comment on above: Order Comment: Speci men Type: BLOOD SPECIMENOrdering Facility: [facility] Address: [address] [place] [address] Performed By: #### 2 43212-16, ####[facility] LABCLIA [id number] [place] [address] [place] CO2 [Moles/Vol] 33 mmol/L High 21-32 [facility] Comment on above: Order Comment: Speci men Type: BLOOD SPECIMENOrdering Facility: [facility] Address: [address] [place] [address] Performed By: #### 2 4328, ####[facility] LABCLIA [id number] [place] [address] [place] Creatinine [Mass/Vol] 0.78 mg/dL Normal 0.51-0.95 [facility] Comment on above: Order Comment: Speci men Type: BLOOD SPECIMENOrdering Facility: [facility] Address: [facility] [place] [address] Performed By: #### 2 4323-8, ####[facility] LABCLIA [id number] [place] [address] [place] ESTIMATED GLOMERULAR FILTRATION RATE 110 mL/min/1.73m??? Normal >=60 [facility] Comment on above: Order Comment: Eloise lopez Type: BLOOD SPECIMENOrdering Facility: [facility] Address: [address] [place], [place] [address] Result Comment: Tierra mated Glomerular Filtration Rate [...] actual GFR. Performed By: #### 2 4323-8, 69810-2 ####[facility] LABCLIA [id number] [place] [address] [place] Glucose [Mass/Vol] 94 mg/dL Normal 70-99 [facility] Comment on above: Order Comment: Eloise lopez Type: BLOOD SPECIMENOrdering Facility: [facility] Address: [address] [place] [address] Result Comment: The [place] [employer] (ADA) provides guidance for cutoff [...] Standards of Medical Care in Diabetes 2016, [place] [employer]. Diabetes Care. 2016.39(Suppl 1). Performed By: #### 2 4323-8, 63203-2 ####[facility] LABCLIA [id number] [place] [address] [place] Potassium [Moles/Vol] 3.6 mmol/L Normal 3.5-5.1 [facility] Comment on above: Order Comment: Speci men Type: BLOOD SPECIMENOrdering Facility: [facility] Address: [address] [place] [address] Result Comment: Spec imen slightly hemolyzed. Performed By: #### 2 432-8, ####[facility] LABCLIA [id number] [facility] [place] [address] [place] Protein [Mass/Vol] 7.7 g/dL Normal 6.4-8.2 [facility] Comment on above: Order Comment: Speci men Type: BLOOD SPECIMENOrdering Facility: [facility] Address: [address] [place] [address] Performed By: #### 2 432-8, ####[facility] LABCLIA [id number] [facility] [place] [address] [place] Sodium [Moles/Vol] 135 mmol/L Low 136-145 [facility] Comment on above: Order Comment: Speci men Type: BLOOD SPECIMENOrdering Facility: [facility] Address: [address] [place] [address] Performed By: #### 2 8, ####[facility] LABCLIA [id number] [facility] [place] [address] [place] Urea nitrogen [Mass/Vol] 10 mg/dL Normal 7-18 [facility] Comment on above: Order Comment: Speci men Type: BLOOD SPECIMENOrdering Facility: [facility] Address: [address] [place] [address] Performed By: #### 2 4328, ####[facility] LABCLIA [id number] [facility] [place] [address] [facility] [place] ED NOTEon 12-31-2021 ED NOTE HNO ID: [id number] Author: Amy Pena RN Service: Emergency Medicine Author Type: Registered Nurse Type: ED Notes Filed: 12/31/2021 7:03 PM Note Text: Patient resting in room. Patient updated on the plan of care. Bed in low locked position. Call light in reach. Monitoring maintained. Safety and comfort care maintained. [facility] ED NOTE HNO ID: [id number] Author: Amy Pena RN Service: Emergency Medicine Author Type: Registered Nurse Type: ED Notes Filed: 12/31/2021 6:34 PM Note Text: Patient resting in room. Patient updated on the plan of care. Bed in low locked position. Call light in reach. Monitoring maintained. Safety and comfort care maintained. [facility] ED NOTE HNO ID: [id number] Author: Amy Pena RN Service: Emergency Medicine Author Type: Registered Nurse Type: ED Notes Filed: 12/31/2021 5:20 PM Note Text: Patient resting in room. Patient updated on the plan of care. Bed in low locked position. Call light in reach. Monitoring maintained. Safety and comfort care maintained. [facility] ED NOTE HNO ID: [id number] Author: Amy Pena RN Service: Emergency Medicine Author Type: Registered Nurse Type: ED Notes Filed: 12/31/2021 4:55 PM Note Text: Patient updated on the plan of care. Patient medicated per order. Allergies reviewed. Patient verbalized understanding. 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 Emesis x 1 today. Normal BM today. Pt denies dysuria or hematuria. Hx of kidney stone and UTI Normal [facility] ED PROV NOTEon 12-31-2021 ED PROV NOTE HNO ID: [id number] Author: Mary Pereira DO Service: Emergency Medicine [...] Medical Center ED PROV NOTE HNO ID: [id number] Author: Jayde Yeager MD Service: Emergency Medicine [...] Comment: Speci men Type: URINE SPECIMENOrdering Facility: [facility] Address: [address] [place] [address] Result Comment: This test is intended to aid in the early detection of . Very dilute urine samples, as indicated by a low specific gravity, may not contain patient registration representative levels of hCG. This test detects [...] for . Performed By: #### 2 106-3 ####[facility] LABCLIA [id number] [place] [address] [place] Magnesium SerPl-mCncon 12-31 Magnesium [Mass/Vol] 1.9 mg/dL Normal 1.6-2.3 [facility] Comment on above: Order Comment: Speci men Type: BLOOD SPECIMENOrdering Facility: [facility] Address: [address] [place] [address] Performed By: #### 2 4323-8, 70550-2 ####[facility] LABIA [id number] [place] [address] [place] US DOPPLER COMPLETEon 2021 [...] to body habitus. 4. No free fluid. Operator Lights: CAROLA Transcribe Date/Time: Dec 31 2021 6:24P Dictated by : KAITY SHAY MD This examination was interpreted and the report reviewed and electronically signed by: KAITY SHAY MD on Dec 31 2021 6:28PM EST [id number] Normal [facility] FEMALE PELVIS TRANSABD LT Don 12-31-2021 FEMALE [...] to body habitus. 4. No free fluid. Operator Lights: [facility] Transcribe Date/Time: Dec 31 2021 6:24P [...] to body habitus. 4. No free fluid. Operator Lights: [facility] Transcribe Date/Time: Dec 31 2021 6:24P [...] Comment: Speci men Type: URINE SPECIMENOrdering Facility: [facility] Address: [address] [address] Performed By: #### 2 4356-8 ####[facility] LABCLIA [id number] [facility] [place] [address] [facility] [place] Bilirubin Ql (U) Negative Normal Negative [facility] Comment on above: Order Comment: Speci men Type: URINE SPECIMENOrdering Facility: [facility] Address: [address] [place] [address] Performed By: #### 2 4356-8 ####[facility] LABCLIA [id number] [facility] [place] [address] [facility] Clarity (Unsp spec) Clear Normal Clear [facility] Comment on above: Order Comment: Speci men Type: URINE SPECIMENOrdering Facility: [facility] Address: [address] [place] [address] Performed By: #### 2 4356-8 ####[facility] LABCLIA [id number] [facility] [place] [address] [facility] Color (U) Yellow Normal Yellow [facility] Comment on above: Order Comment: Speci men Type: URINE SPECIMENOrdering Facility: [facility] Address: [address] [place] [address] Performed By: #### 2 4356-8 ####[facility] LABCLIA [id number] [facility] [place] [address] [facility] Epithelial cells LM.HPF (Urine sed) [#/Area] Many Normal [facility] Comment on above: Order Comment: Speci men Type: URINE SPECIMENOrdering Facility: [facility] Address: [address] [place] [address] Performed By: #### 2 4356-8 ####[facility] LABCLIA [id number] [place] [address] [facility] Glucose Test strip (U) [Mass/Vol] Negative Normal Negative [facility] Comment on above: Order Comment: Speci men Type: URINE SPECIMENOrdering Facility: [facility] Address: [address] [place] [address] Performed By: #### 2 4356-8 ####[facility] LABCLIA [id number] [facility] [place] [address] [facility] Hemoglobin Ql (U) 2+ Abnormal Negative [facility] Comment on above: Order Comment: Speci men Type: URINE SPECIMENOrdering Facility: [facility] Address: [address] [place] [address] Performed By: #### 2 4356-8 ####[facility] LABCLIA [id number] [facility] [place] [address] [place] Ketones Ql (U) Negative Normal Negative [facility] Comment on above: Order Comment: Speci men Type: URINE SPECIMENOrdering Facility: [facility] Address: [address] [place] [address] Performed By: #### 2 4356-8 ####[facility] LABCLIA [id number] [facility] [place] [address] [facility] Leukocyte esterase Test strip Ql (U) Trace Abnormal Negative [facility] Comment on above: Order Comment: Speci men Type: URINE SPECIMENOrdering Facility: [facility] Address: [address] [place] [address] Performed By: #### 2 4356-8 ####[facility] LABCLIA [id number] [facility] [place] [address] [place] Nitrite Ql (U) Negative Normal Negative [facility] Comment on above: Order Comment: Speci men Type: URINE SPECIMENOrdering Facility: [facility] Address: [address] [place] [address] Performed By: #### 2 4356-8 ####[facility] LABCLIA [id number] [place] [address] [facility] pH (U) 6.0 [pH] Normal 5.0-8.0 [facility] Comment on above: Order Comment: Speci men Type: URINE SPECIMENOrdering Facility: [facility] Address: [address] [place] [address] Performed By: #### 2 4356-8 ####[facility] LABCLIA [id number] [place] [address] [place] [facility] Protein (U) [Mass/Vol] Normal [facility] Comment on above: Order Comment: Speci men Type: URINE SPECIMENOrdering Facility: [facility] Address: [address] [place] [address] Result Comment: Visi ble blood causes falsely elevated results for analyte Protein. Due to this limitation, Protein will not be reported for patients whose urine contains visible blood. Performed By: #### 2 4356-8 ####[facility] LABCLIA [id number] [place] [address] [place] RBC LM.HPF (Urine sed) [#/Area] 11-25 /HPF Abnormal 0-3 /HPF [facility] Comment on above: Order Comment: Speci men Type: URINE SPECIMENOrdering Facility: [facility] Address: [address] [place] [address] Performed By: #### 2 4356-8 ####[facility] LABCLIA [id number] [place] [id number] [place] Specific gravity (U) [Rel density] >=1.030 High 1.005-1.030 [facility] Comment on above: Order Comment: Speci men Type: URINE SPECIMENOrdering Facility: [facility] Address: [address] [place] [address] Performed By: #### 2 4356-8 ####[facility] LABCLIA [id number] [place] [address] [facility] Urobilinogen Ql (U) 0.2 EU/dL Normal 0.2-1.0 EU/dL [facility] Comment on above: Order Comment: Speci men Type: URINE SPECIMENOrdering Facility: [facility] Address: [address] [place] [address] Performed By: #### 2 4356-8 ####[facility] LABCLIA [id number] [place] [address] [place] WBC LM.HPF (Urine sed) [#/Area] 6-10 /HPF Abnormal 0-5 /HPF [facility] Comment on above: Order Comment: Speci men Type: URINE SPECIMENOrdering Facility: [facility] Address: [facility] [place] [address] Performed By: #### 2 4356-8 ####[facility] LABCLIA [id number] [place] [address] [place] COVID 19, CHICHO WC(RT COLLECT )on 03-17-2021 SARS-CoV-2 (COVID-19) RNA CHICHO+probe Ql (Unsp spec) Not detected Normal Not Detect [facility] Comment on above: Result Comment: Norm al Reference Range: Not Detected Method:(RT-PCR) real-time reverse transcriptase PCR Luminex TheRouteBox Instrument *The Food and Drug Administration (FDA) has issued an Emergency Use Authorization (EAU) for the TheRouteBox SARS-CoV-2 Assay for the rapid detection of [...] exposure. Performed By: #### L 3400.2405 #### [facility] [address] [place], [address] HAND RIGHT COMPLETEon 2020 HAND [...] [Moles/Vol] 13 mmol/L Normal 10 - 20 [facility] Comment on above: Performed By: #### B MP #### [address] [address] Calcium [Mass/Vol] 9.5 mg/dL Normal 8.6 - 10.3 [facility] Comment on above: Performed By: #### B MP #### [address] [address] Chloride [Moles/Vol] 104 mmol/L Normal 98 - 107 [facility] Comment on above: Performed By: #### B MP #### [address] [address] Creatinine [Mass/Vol] 0.76 mg/dL Normal 0.50 - 1.05 [facility] Comment on above: Performed By: #### B MP #### [address] [address] GFR- AM. >60 Normal >60 [facility] Comment on above: Result Comment: CALC ULATIONS OF ESTIMATED GFR ARE PERFORMED USING THE MDRD STUDY EQUATION FOR THE IDMS-TRACEABLE CREATININE METHODS. CLIN CHEM 2007;53:766-72 Performed By: #### B MP #### [address] [address] GFR-NON AM. >60 Normal >60 [facility] Comment on above: Performed By: #### B MP #### [address] [address] Glucose [Mass/Vol] 88 mg/dL Normal 74 - 99 [facility] Comment on above: Performed By: #### B MP #### [address] [address] HCO3 (Bld) [Moles/Vol] 27 mmol/L Normal 21 - 32 [facility] Comment on above: Performed By: #### B MP #### [address] [address] Potassium [Moles/Vol] 3.8 mmol/L Normal 3.5 - 5.3 [facility] Comment on above: Performed By: #### B MP #### [address] [address] Sodium [Moles/Vol] 140 mmol/L Normal 136 - 145 [facility] Comment on above: Performed By: #### B MP #### [address] [address] Urea nitrogen [Mass/Vol] 11 mg/dL Normal 6 - 23 [facility] Comment on above: Performed By: #### B MP #### [address] [address] CBCon 10-17-2019 Erythrocyte distribution width (RBC) [Ratio] 12.5 % Normal 11.5 - 14.5 [facility] Comment on above: Performed By: #### C BC #### [address] [address] Hematocrit (Bld) [Volume fraction] 42.6 % Normal 36.0 - 46.0 [facility] Comment on above: Performed By: #### C BC #### [address] [address] Hemoglobin (Bld) [Mass/Vol] 14.5 g/dL Normal 12.0 - 16.0 [facility] Comment on above: Performed By: #### C BC #### [address] [address] MCHC (RBC) [Mass/Vol] 34.1 g/dL Normal 32.0 - 36.0 [facility] Comment on above: Performed By: #### C BC #### [address] [address] MCV (RBC) [Entitic vol] 91 fL Normal 80 - 100 [facility] Comment on above: Performed By: #### C BC #### [address] [address] Platelets (Bld) [#/Vol] 270 10*3/uL Normal 150 - 450 [facility] Comment on above: Performed By: #### C BC #### [address] [address] RBC (Bld) [#/Vol] 4.67 x10E12/L Normal 4.00 - 5.20 [facility] Comment on above: Performed By: #### C BC #### [address] [address] WBC (Bld) [#/Vol] 8.2 10*3/uL Normal 4.4 - 11.3 [facility] Comment on above: Performed By: #### C BC #### [address] [address] [address] HEAD WO CONTRASTon 2019 CT HEAD WO CONTRAST Patient Name: LUZ MTZ STUDY: CT of the head without contrast INDICATION: dizzy/trauma COMPARISON: None ACCESSION NUMBER(S): [id number] ORDERING CLINICIAN: RASHMI FERRERA TECHNIQUE: A CT [...] above: Performed By: #### H CGU #### [address] [address] Provider Note - ED v2on Provider Note - ED v2 Provider Note - ED v2: Chart Review: ED NOTES ED NOTES: ====HPI==== 19 year old female comes to the ED 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 Patient states she believes she has a [...] made to minimize errors. Minor errors in chess instructor may be present. Please call if questions. 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: Is : no(1) Is : no(1) RESULTS/VITAL [...] at 10/17/2019 01:39 Appearance, Urine CLEAR Specific Hunter, Urine 1.021 pH, Urine 7.0 Protein, Urine [...] SIGNS: T PRBP SpO2O2(LPM) %FiO2 Method 17-Oct-2019 01:27:00-9183335/80 100 room air, no respiratory support 16-Oct-2019 22:16:[id number] /78 99 room air, no respiratory support 16-Oct-2019 22:00:00-37.941059852 /78 99 room air, no respiratory support [...] From Triage - ED 16-Oct-2019 22:16 [facility] Risk Screen - Adult [...] instruction; written material Cultural Considerationsnone Developmental Considerationsnone Anabaptism Considerationsnone Other Learnerssignificant other Learning Assessment (Other Learner): Learning Assessment (Other Learner): Other learner availableyes... Learnersignificant other Factors Influencing Readiness to Learninterest in learning Factors that Impact Ability to Learnnone Devices/Methods Used to Communicatenone Learning Preferencesverbal instruction, written material Cultural Considerationsnone Developmental Considerationsnone Anabaptism Considerationsnone Pressure Injury/TB/Substance: Pressure Injury: Do you have a coughno Substance Use Current or Former Historynever: Cigarette/Tobacco, e-Cigarette/Vaping, Alcohol, Street Drugs Admission Risk Screen: Significant IndicatorsComplete CAGE: CAGE: Is this an injured patient at a Trauma Center ([facility]/[place]/[facility]/[place]): no Electronic Signatures: Lisette Junior (ZAK) (Signed 16-Oct-2019 22:23) Authored: Preferred Language, Advanced Directives, Family Violence Adult, Learning Assessment (Patient), Learning Assessment (Other Learner), Pressure Injury/TB/Substance, CAGE Last Updated: 16-Oct-2019 22:23 by Lisette Junior (ZAK) [facility] Triage - EDon 10-17-2019 Triage - [...] BMI (kg/m2): 29.674 Calculated BSA (m2) 1.75 [place] Coma Scale: Best Eye Response: (E4) spontaneous Best Motor Response: (M6) obeys commands Best Verbal Response: (V5) oriented [place] Score: 15 Cough lasting greater than 3 weeks: no Patient immunocompromised related to: N/A Travel outside of [facility]: no Allergies: yes Last [...] and spouse/significant other Language: Spoken Language Preferred: Rwandan Reading Language Preferred: [place] Chronic Specialist Requested: no staff interpreter was requested MDRO: History of MDRO: no [...] above: Performed By: #### U AMIC #### [place] [address] MUCUS 1+ /LPF Normal [facility] Comment on above: Performed By: #### U AMIC #### [place] [address] RBC (Bld) [#/Vol] 0-5 Normal 0-5 [facility] Comment on above: Performed By: #### U AMIC #### [place] [address] SQUAMOUS EPITH. CELLS 1+ /HPF Normal [facility] Comment on above: Performed By: #### U AMIC #### [place] [address] TRANSITIONAL EPITH.CELLS Negative Normal [facility] Comment on above: Performed By: #### U AMIC #### [place] [address] WBC (Bld) [#/Vol] 5-20 Abnormal 0-5 [facility] Comment on above: Performed By: #### U AMIC #### [place] [address] URINALYSISon 10-17-2019 Appearance (U) CLEAR Normal CLEAR [facility] Comment on above: Result Comment: This is a corrected result. Previous value was HAZY, verified at 10/17/2019 01:39 Performed By: #### U A #### [place] [address] Color (U) YELLOW Normal STRAW,YELLOW [facility] Comment on above: Result Comment: This is a corrected result. Previous value was Red, verified at 10/17/2019 01:39 Performed By: #### U A #### [place] [address] Bilirubin (U) [Mass/Vol] Negative Normal NEGATIVE [facility] Comment on above: Performed By: #### U A #### [place] [address] BLOOD SMALL(1+) Abnormal NEGATIVE [facility] Comment on above: Performed By: #### U A #### [place] [address] Glucose [Mass/Vol] Negative Normal NEGATIVE [facility] Comment on above: Performed By: #### U A #### [place] [address] Ketones Ql (U) Negative Normal NEGATIVE [facility] Comment on above: Performed By: #### U A #### [place] [address] Leukocyte esterase Test strip Ql (U) TRACE Abnormal NEGATIVE [facility] Comment on above: Performed By: #### U A #### [place] [address] Nitrite Ql (U) Negative Normal NEGATIVE [facility] Comment on above: Performed By: #### U A #### [address] [address] pH (Bld) 7.0 Normal 5.0 - 8.0 [facility] Comment on above: Performed By: #### U A #### [address] [address] Protein (U) [Mass/Vol] Negative Normal NEGATIVE [facility] Comment on above: Performed By: #### U A #### [address] [address] Specific gravity (U) [Rel density] 1.021 Normal 1.005 - 1.035 [facility] Comment on above: Performed By: #### U A #### [address] [address] Urobilinogen Qn (U) <2.0 Normal 0.0 - 1.9 [facility] Comment on above: Performed By: #### U A #### [address] [address] URINE CULTURE,BACTERIALon URINE CULTURE,BACTERIAL TEST URINE CULTURE,BACTERIAL WAS CANCELLED, 10/19/2019 16:21 PATIENT DISCHARGED. PATIENT: LUZ MTZ LOCATION: [facility]#: [id number] : 89 AGE: SEX: F ORDERED BY: RASHMI FERRERA SOURCE: URINE COLLECTED: 10/17/19 02:24 ANTIBIOTICS AT JAMIE.: RECEIVED : SITE: Clean Catch/Voided R E S U L T S URINE CULTURE,BACTERIAL CANCELLED 10/19/19 16:21 Normal [facility] Comment on above: Performed By: #### U [facility] #### [facility] [address] [place] [address] XR Foot 3+ Views Righton XR Foot 3+ Views Right Exam Date/Time: 04/28/2019 13:58 EDT Reason for Exam: Pain, Traumatic Report STUDY: XR Foot 3+ Views Right;; 04/28/2019 1:58 pm INDICATION: Pain, Traumatic. COMPARISON: None. ACCESSION NUMBER(S): [id number] ORDERING CLINICIAN: Alex Grubbs FINDINGS: No acute fracture or malalignment. No radiopaque foreign body. IMPRESSION: No acute osseous abnormality FINAL REPORT Dictated: 04/28/2019 2:30 pm Nancy Mills MD Signed (Electronic Signature): 04/28/2019 2:30 pm Signed by: Nancy Mills MD Technologist: JOHNSON Normal [facility] ABO/Rh Echoon 12-25-2018 ABO/Rh E Interp... Positive Normal [facility] Comment on above: Performed By: #### 2 [id number] #### [facility] [address] [place] [address] BhCG Quanton 12-25-2018 Beta hCG Qnt <0.6 Normal 0.0-2.9 [facility] Comment on above: Performed By: #### 2 841976 #### [facility] [address] [place] [address] UA Completeon 12-25-2018 Color (U) Yellow Normal Yellow [facility] Comment on above: Performed By: #### 2 593376 #### [facility] [address] [place] [address] Glucose (U) [Mass/Vol] Negative Normal Negative [facility] Comment on above: Performed By: #### 2 535306 #### [facility] [address] [place] [address] Ketones Ql (U) Negative Normal Negative [facility] Comment on above: Performed By: #### 2 432742 #### [facility] [address] [place] [address] RBC (U) [#/Vol] /uL Abnormal 0-3 [facility] Comment on above: Performed By: #### 2 858785 #### [facility] [address] [place] [address] UA Blood 3+ Normal Negative [facility] Comment on above: Performed By: #### 2 211895 #### [facility] [address] [place] [address] UA Bacteria Trace Abnormal None [facility] Comment on above: Performed By: #### 2 293040 #### [facility] [address] [place] [address] UA Clarity Clear Normal Clear [facility] Comment on above: Performed By: #### 2 022806 #### [facility] [address] [place] [address] UA Leuk Est Negative Normal Negative [facility] Comment on above: Performed By: #### 2 244720 #### [facility] [address] [place] [address] UA Mucous Trace Abnormal Trace [facility] Comment on above: Performed By: #### 2 654700 #### [facility] [address] [place] [address] UA Nitrite Negative Normal Negative [facility] Comment on above: Performed By: #### 2 850893 #### [facility] [address] [place] [address] UA pH 8.0 Normal 4.6-8.0 [facility] Comment on above: Performed By: #### 2 140892 #### [facility] [address] [place] [address] UA Protein Negative Normal Negative [facility] Comment on above: Performed By: #### 2 488686 #### [facility] [address] [place] [address] UA Spec Grav 1.012 Normal 1.003-1.030 [facility] Comment on above: Performed By: #### 2 408402 #### [facility] [address] [place] [address] UA Squam Epithelial 0-5 Normal 0-5 [facility] Comment on above: Performed By: #### 2 976523 #### [facility] [address] [place] [address] UA Urobilinogen Negative Normal [facility] Comment on above: Result Comment: Due to a manufacturing issue, low positive urobilinogen results may be fasely positive. Correlate with urine bilirubin and additional clinical/laboratory findings to assess the risk of hemolytic anemia or liver disease. If clinically indicated, repeat testing with an alternate method is available by contacting the laboratory within 24 hours. Performed By: #### 2 [id number] #### [facility] [address] [place] [address] UA WBC 5-10 Abnormal 0-5 [facility] Comment on above: Performed By: #### 2 869211 #### [facility] [place] [address] Urobilinogen Qn (U) Negative Normal Negative [facility] Comment on above: Performed By: #### 2 024668 #### [facility] [place] [address] C Urineon 09-05-2018 C Urine Final Report: Light growth of Normal skin den isolated Normal [facility] Comment on above: Performed By: #### 2 447035 #### [facility] [place] [address] .Manual Abson 09-03-2018 Basophil Abs Man 0.0 10x3/ Normal 0.0-0.2 [facility] Comment on above: Order Comment: Order Added by Discern Expert. Performed By: #### 3 [id number] #### [facility] [address] [place] [address] Eos Abs Man 0.0 10x3/ Normal 0.0-0.5 [facility] Comment on above: Order Comment: Order Added by Discern Expert. Performed By: #### 3 [id number] #### [facility] [address] [place] [address] Lymph Abs Man 0.5 10x3/ Low 1.2-3.4 [facility] Comment on above: Order Comment: Order Added by Discern Expert. Performed By: #### 3 [id number] #### [facility] [address] [place] [address] [place] Abs Man 0.4 10x3/ Normal 0.0-0.7 [facility] Comment on above: Order Comment: Order Added by Discern Expert. Performed By: #### 3 [id number] #### [facility] [address] [place] [address] Segs Abs Man 7.8 10x3/ High 1.4-6.5 [facility] Comment on above: Order Comment: Order Added by Discern Expert. Performed By: #### 3 [id number] #### [facility] [address] [place] [address] BMPon 09-03-2018 Anion gap [Moles/Vol] 14 mmol/L Normal 10-20 [facility] Comment on above: Performed By: #### 2 356258 #### [facility] [address] [place] [address] Calcium [Mass/Vol] 8.8 mg/dL Normal 8.5-10.7 [facility] Comment on above: Performed By: #### 2 579791 #### [facility] [address] [place] [address] Chloride [Moles/Vol] 102 mmol/L Normal 98-107 [facility] Comment on above: Performed By: #### 2 713244 #### [facility] [address] [place] [address] CO2 [Moles/Vol] 24.0 mmol/L Normal 21.0-32.0 [facility] Comment on above: Performed By: #### 2 055732 #### [facility] [address] [place] [address] Creatinine [Mass/Vol] 0.8 mg/dL Normal 0.5-1.1 [facility] Comment on above: Performed By: #### 2 453196 #### [facility] [address] [place] [address] Glucose [Mass/Vol] 100 mg/dL High 70-99 [facility] Comment on above: Performed By: #### 2 370178 #### [facility] [address] [place] [address] Potassium [Moles/Vol] 3.2 mmol/L Low 3.5-5.3 [facility] Comment on above: Performed By: #### 2 617406 #### [facility] [address] [place] [address] Sodium [Moles/Vol] 137 mmol/L Normal 136-145 [facility] Comment on above: Performed By: #### 2 502884 #### [facility] [address] [place] [address] Urea nitrogen [Mass/Vol] 11 mg/dL Normal 6-23 [facility] Comment on above: Performed By: #### 2 906632 #### [facility] [place] [address] Urea nitrogen/Creatinine [Mass ratio] 13.8 ratio Normal 5.4-30.0 [facility] Comment on above: Performed By: #### 2 856033 #### [facility] [address] [place] [address] CBC w/ Auto Diffon 8 Erythrocyte distribution width (RBC) [Ratio] 13.0 % Normal 11.5-14.5 [facility] Comment on above: Performed By: #### 2 668749 #### [facility] [address] [place] [address] Hematocrit (Bld) [Volume fraction] 37.2 % Normal 36.0-48.0 [facility] Comment on above: Performed By: #### 2 718875 #### [facility] [address] [place] [address] Hemoglobin (Bld) [Mass/Vol] 12.7 g/dL Normal 12.0-16.0 [facility] Comment on above: Performed By: #### 2 057724 #### [facility] [address] [place] [address] MCH (RBC) [Entitic mass] 31.2 pg High 27.0-31.0 [facility] Comment on above: Performed By: #### 2 193523 #### [facility] [address] [place] [address] MCHC (RBC) [Mass/Vol] 34.2 g/dL Normal 33.0-37.0 [facility] Comment on above: Performed By: #### 2 365332 #### [facility] [address] [place] [address] MCV (RBC) [Entitic vol] 91.4 fL Normal 78.0-100.0 [facility] Comment on above: Performed By: #### 2 988023 #### [facility] [place] [address] Platelet mean volume (Bld) [Entitic vol] 8.2 fL Normal 7.4-11.0 [facility] Comment on above: Performed By: #### 2 [id number] #### KOBY MckeonHemo [facility]5 [place] [address] Platelets (Bld) [#/Vol] 201 E3/mcL Normal 130-400 [facility] Comment on above: Performed By: #### 2 [id number] #### KOBY MckeonHemo [facility]5 [place] [address] RBC (Bld) [#/Vol] 4.07 E6/mcL Normal 3.90-5.40 [facility] Comment on above: Performed By: #### 2 [id number] #### [facility] [place] [address] WBC (Bld) [#/Vol] 8.9 E3/mcL Normal 3.6-11.0 [facility] Comment on above: Performed By: #### 2 [id number] #### KOBY MckeonHemo [address] [place] [address] [address] Abdomen/Pelvis w/ Contras ton 09-03-2018 CT Abdomen/Pelvis w/ Contrast Exam Date/Time: 09/03/2018 21:35 EST Reason for Exam: Pain Report STUDY: CT Abdomen/Pelvis w/ Contrast; 09/03/2018 9:35 pm INDICATION: Pain. Pain COMPARISON: No comparison available ACCESSION NUMBER(S): [id number] ORDERING CLINICIAN: Miles Horn TECHNIQUE: CT of [...] by: Joaquin Lobo MD Technologist: JOHN, Normal [facility] Hep Func Panelon 09-03-2018 Albumin [Mass/Vol] 4.3 g/dL Normal 3.4-5.0 [facility] Comment on above: Performed By: #### 2 [id number] #### [facility]OB[facility] [address] [place] [address] Albumin/Globulin [Mass ratio] 1.7 {ratio} Normal 1.1-1.9 [facility] Comment on above: Performed By: #### 2 [id number] #### [facility] [address] [place] [address] Alk Phos 59 Int._Unit/L Normal 33-139 [facility] Comment on above: Performed By: #### 2 [id number] #### [facility] [address] [place] [address] ALT [Catalytic activity/Vol] 18 Int._Unit/L Normal 7-45 [facility] Comment on above: Performed By: #### 2 [id number] #### [facility] [address] [place] [address] AST [Catalytic activity/Vol] 18 Int._Unit/L Normal 9-39 [facility] Comment on above: Performed By: #### 2 [id number] #### [facility] [address] [place] [address] Bili Direct 0.16 mg/dL Normal 0.00-0.30 [facility] Comment on above: Performed By: #### 2 [id number] #### [facility] [address] [place] [address] Bili Indirect 0.7 Normal [facility] Comment on above: Performed By: #### 2 [id number] #### [place] [id number] [place] [address] Bili Total 0.9 mg/dL Normal 0.0-1.2 [facility] Comment on above: Performed By: #### 2 [id number] #### [id number] [place] [address] Globulin (S) [Mass/Vol] 3.0 g/dL Normal 2.0-4.0 [facility] Comment on above: Performed By: #### 2 [id number] #### KOBYTiny Mckeon[address] [address] Protein [Mass/Vol] 6.8 g/dL Normal 6.4-8.2 [facility] Comment on above: Performed By: #### 2 [id number] #### KOBY Mckeon[address] [address] Influenza A&B Agon 8 Influenzae A Ag Negative Normal Negative [facility] Comment on above: Performed By: #### 2 [id number] #### [place] [place] [address] Influenzae B Ag Negative Normal Negative [facility] Comment on above: Performed By: #### 2 [id number] #### [facility] [address] [place] [address] Lactic Acidon 09-03-2018 Lactate [Moles/Vol] 0.8 mmol/L Normal 0.4-2.0 [facility] Comment on above: Performed By: #### 2 [id number] #### [facility] [address] [place] [address] Lipase Levelon 09-03-2018 Lipase Lvl 12 Int._Unit/L Normal 9-82 [facility] Comment on above: Performed By: #### 2 [id number] #### [facility] [address] [place] [address] Manual Diffon 09-03-2018 Band form neutrophils/100 WBC (Bld) 1 Normal 0-1 [facility] Comment on above: Order Comment: Order Added by Discern Expert. Performed By: #### 2 [id number] #### KOBY RemHemo [address] [place] [address] Basophil Man 0 % Normal 0-1 [facility] Comment on above: Order Comment: Order Added by Discern Expert. Performed By: #### 2 [id number] #### KOBY RemHemo [address] [place] [address] Eosinophils/100 WBC (Bld) 0 % Normal 0-5 [facility] Comment on above: Order Comment: Order Added by Discern Expert. Performed By: #### 2 [id number] #### KOBY RemHemo [address] [place] [address] Lymphocytes/100 WBC (Bld) 6 % Low 14-48 [facility] Comment on above: Order Comment: Order Added by Discern Expert. Performed By: #### 2 [id number] #### KOBY RemHemo [address] [place] [address] Monocyte Man 5 % Normal 1-11 [facility] Comment on above: Order Comment: Order Added by Discern Expert. Performed By: #### 2 [id number] #### KOBY RemHemo [address] [place] [address] RBC morphology finding Nom (Bld) NORMAL Normal [facility] Comment on above: Order Comment: Order Added by Discern Expert. Performed By: #### 2 [id number] #### KOBY RemHemo [address] [place] [address] Segs Man 88 % High 37-75 [facility] Comment on above: Order Comment: Order Added by Discern Expert. Performed By: #### 2 [id number] #### KOBY RemHemo [address] [place] [address] TSHon 09-03-2018 TSH Qn 0.89 mcIU/mL Normal 0.30-5.60 [facility] Comment on above: Order Comment: With T4fr Reflex Performed By: #### 2 [id number] #### [facility] [address] [place] [address] U BhCG Qlton 09-03-2018 HCG.beta subunit Qn Negative Normal Neg [facility] Comment on above: Performed By: #### 2 [id number] #### [facility] [address] [place] [address] UA Completeon 09-03-2018 Color (U) Yellow Normal Yellow [facility] Comment on above: Order Comment: Strai ght Cath as needed Performed By: #### 2 [id number] #### [facility] [address] [place] [address] Glucose (U) [Mass/Vol] Negative Normal Negative [facility] Comment on above: Order Comment: Strai ght Cath as needed Performed By: #### 2 [id number] #### [facility] [address] [place] [address] Ketones Ql (U) 1+ Abnormal Negative [facility] Comment on above: Order Comment: Strai ght Cath as needed Performed By: #### 2 [id number] #### [facility] [address] [place] [address] RBC (U) [#/Vol] 10-20 Abnormal 0-3 [facility] Comment on above: Order Comment: Strai ght Cath as needed Performed By: #### 2 [id number] #### [facility] [address] [place] [address] UA Blood 1+ Abnormal Negative [facility] Comment on above: Order Comment: Strai ght Cath as needed Performed By: #### 2 [id number] #### [facility] [address] [place] [address] UA Ascorbic Acid 40 mg/dL High <=19 [facility] Comment on above: Order Comment: Strai ght Cath as needed Performed By: #### 2 [id number] #### [facility] [address] [place] [address] UA Clarity SltCloudy Abnormal Clear [facility] Comment on above: Order Comment: Strai ght Cath as needed Performed By: #### 2 [id number] #### [facility] [address] [place] [address] UA Leuk Est 1+ Abnormal Negative [facility] Comment on above: Order Comment: Strai ght Cath as needed Performed By: #### 2 649982 #### [facility] [address] [place] [address] UA Mucous Trace Abnormal Trace [facility] Comment on above: Order Comment: Strai ght Cath as needed Performed By: #### 2 140078 #### [facility] [address] [place] [address] UA Nitrite Negative Normal Negative [facility] Comment on above: Order Comment: Strai ght Cath as needed Performed By: #### 2 [id number] #### [facility] [address] [place] [address] UA pH 7.0 Normal 4.6-8.0 [facility] Comment on above: Order Comment: Strai ght Cath as needed Performed By: #### 2 [id number] #### [facility] [address] [place] [address] UA Protein Negative Normal Negative [facility] Comment on above: Order Comment: Strai ght Cath as needed Performed By: #### 2 [id number] #### [facility] [address] [place] [address] UA Spec Grav 1.015 Normal 1.003-1.030 [facility] Comment on above: Order Comment: Strai ght Cath as needed Performed By: #### 2 [id number] #### [facility] [address] [place] [address] UA Squam Epithelial 0-5 Normal 0-5 [facility] Comment on above: Order Comment: Strai ght Cath as needed Performed By: #### 2 [id number] #### [facility] [address] [place] [address] UA Urobilinogen Negative Normal [facility] Comment on above: Order Comment: Strai [...] within 24 hours. Performed By: #### 2 [id number] #### KOBY MckeonChem [facility] [place] [id number] UA WBC 20-50 Abnormal 0-5 [facility] Comment on above: Order Comment: Strai ght Cath as needed Performed By: #### 2 [id number] #### KOBY [facility] [place] [id number] Urobilinogen Qn (U) Negative Normal Negative [facility] Comment on above: Order Comment: Strai ght Cath as needed Performed By: #### 2 [id number] #### KOBY MckeonChem [facility] [place] [id number] eGFRon 09-03-2018 GFR/1.73 sq M predicted among non-blacks MDRD (S/P/Bld) [Vol rate/Area] mL/min/{1.73_m2} Normal [facility] Comment on above: Order Comment: Order added by Discern Expert. Performed By: #### 1 [id number] #### KOBY MckeonChem [facility] [place] [id number] zzplt morphon 09-03-2018 Platelet morphology finding Nom (Bld) NORMAL Normal [facility] Comment on above: Performed By: #### 9 [id number] #### KOBY MckeonHemo [facility] [place] [id number] Platelets (Bld) [#/Vol] NORMAL Normal [facility] Comment on above: Performed By: #### 9 [id number] #### KOBY MckeonHemo [facility] [place] [id number] Vital Signs Date Time Vital Sign Value Performing Clinician Facility 04-02-2023 16:00-0400 Body temperature 97.88 [degF] SUNIL GRAHAM MD [facility] 04-02-2023 16:00-0400 Diastolic Blood Pressure Non-Invasive 66 1 SUNIL GRAHAM MD [facility] 04-02-2023 16:00-0400 Heart rate 77 /min SUNIL GRAHAM MD [facility] 04-02-2023 16:00-0400 Respiratory rate 18 /min SUNIL GRAHAM MD [facility] 04-02-2023 16:00-0400 Systolic Blood Pressure Non-Invasive 110 1 SUNIL GRAHAM MD [facility] 04-02-2023 10:00-0400 Body temperature 97.7 [degF] SUNIL GRAHAM MD [facility] 04-02-2023 10:00-0400 Diastolic Blood Pressure Non-Invasive 48 1 SUNIL GRAHAM MD [facility] 04-02-2023 10:00-0400 Heart rate 81 /min SUNIL GRAHAM MD [facility] 04-02-2023 10:00-0400 Systolic Blood Pressure Non-Invasive 97 1 SUNIL GRAHAM MD [facility] 04-02-2023 00:31-0400 Body temperature 97.88 [degF] SUNIL GRAHAM MD [facility] 04-02-2023 00:31-0400 Diastolic Blood Pressure Non-Invasive 59 1 SUNIL GRAHAM MD [facility] 04-02-2023 00:31-0400 Heart rate 68 /min SUNIL GRAHAM MD [facility] 04-02-2023 00:31-0400 Reason For Taking VItal Signs SUNIL GRAHAM MD [facility] 04-02-2023 00:31-0400 Respiratory rate 16 /min SUNIL GRAHAM MD [facility] 04-02-2023 00:31-0400 Systolic Blood Pressure Non-Invasive 113 1 SUNIL GRAHAM MD [facility] 04-01-2023 16:20-0400 Reason For Taking VItal Signs SUNIL GRAHAM MD [facility] 04-01-2023 08:41-0400 Reason For Taking VItal Signs SUNIL GRAHAM MD [facility] 03-31-2023 23:30-0400 Body temperature 97.88 [degF] SUNIL GRAHAM MD [facility] 03-31-2023 15:25-0400 Body temperature 98.42 [degF] SUNIL GRAHAM MD [facility] 03-31-2023 08:36-0400 Body temperature 98.24 [degF] SUNIL GRAHAM MD [facility] 03-30-2023 07:49-0400 Body height 155 cm SUNIL GRAHAM MD [facility] 03-30-2023 07:49-0400 Body weight 78 kg SUNIL GRAHAM MD [facility] 03-30-2023 07:49-0400 Body weight 32.47 kg/m2 SUNIL GRAHAM MD [facility] 03-07-2023 20:03-0400 Body temperature 98.6 [degF] MARTINEZ NÚÑEZ MD [facility] 03-07-2023 20:03-0400 Diastolic Blood Pressure Non-Invasive 69 1 MARTINEZ NÚÑEZ MD [facility] 03-07-2023 20:03-0400 Heart rate 91 /min MARTINEZ NÚÑEZ MD [facility] 03-07-2023 20:03-0400 Respiratory rate 18 /min MARTINEZ NÚÑEZ MD [facility] 03-07-2023 20:03-0400 Systolic Blood Pressure Non-Invasive 115 1 MARTINEZ NÚÑEZ MD [facility] 03-07-2023 20:02-0400 Body height 155 cm MARTINEZ NÚÑEZ MD [facility] 03-07-2023 20:02-0400 Body weight 79.5 kg MARTINEZ NÚÑEZ MD [facility] 03-07-2023 20:02-0400 Body weight 33.09 kg/m2 MARTINEZ NÚÑEZ MD [facility] 03-06-2023 17:39-0400 Body temperature 98.06 [degF] MARTINEZ NÚÑEZ MD [facility] 03-06-2023 17:39-0400 Diastolic Blood Pressure Non-Invasive 76 1 MARTINEZ NÚÑEZ MD [facility] 03-06-2023 17:39-0400 Heart rate 125 /min MARTINEZ NÚÑEZ MD [facility] 03-06-2023 17:39-0400 Systolic Blood Pressure Non-Invasive 113 1 MARTINEZ NÚÑEZ MD [facility] 03-06-2023 17:37-0400 Body height 155 cm MARTINEZ NÚÑEZ MD [facility] 03-06-2023 17:37-0400 Body weight 79.5 kg MARTINEZ NÚÑEZ MD [facility] 03-06-2023 17:37-0400 Body weight 33.09 kg/m2 MARTINEZ NÚÑEZ MD [facility] 01-26-2023 03:20-0400 Diastolic Blood Pressure Non-Invasive 67 1 MARTINEZ NÚÑEZ MD [facility] 01-26-2023 03:20-0400 Heart rate 107 /min MARTINEZ NÚÑEZ MD [facility] 01-26-2023 03:20-0400 Systolic Blood Pressure Non-Invasive 113 1 MARTINEZ NÚÑEZ MD [facility] 01-26-2023 02:34-0400 Diastolic Blood Pressure Non-Invasive 71 1 MARTINEZ NÚÑEZ MD [facility] 01-26-2023 02:34-0400 Heart rate 95 /min MARTINEZ NÚÑEZ MD [facility] 01-26-2023 02:34-0400 Systolic Blood Pressure Non-Invasive 116 1 MARTINEZ NÚÑEZ MD [facility] 01-26-2023 02:15-0400 Body temperature 98.24 [degF] MARTINEZ NÚÑEZ MD [facility] 01-26-2023 01:46-0400 Diastolic Blood Pressure Non-Invasive 42 1 MARTINEZ NÚÑEZ MD [facility] 01-26-2023 01:46-0400 Heart rate 101 /min MARTINEZ NÚÑEZ MD [facility] 01-26-2023 01:46-0400 Systolic Blood Pressure Non-Invasive 114 1 MARTINEZ NÚÑEZ MD [facility] 01-26-2023 01:16-0400 Respiratory rate 16 /min MARTINEZ NÚÑEZ MD [facility] 01-26-2023 00:59-0400 Body height 155 cm MARTINEZ NÚÑEZ MD [facility] 01-26-2023 00:59-0400 Body weight 77.3 kg MARTINEZ NÚÑEZ MD [facility] 01-26-2023 00:59-0400 Body weight 32.17 kg/m2 MARTINEZ NÚÑEZ MD [facility] 11-18-2022 12:08-0500 Body temperature 98.24 [degF] SUNLI GRAHAM MD [facility] 11-18-2022 12:08-0500 Diastolic Blood Pressure Non-Invasive 82 1 SUNIL GRAHAM MD [facility] 11-18-2022 12:08-0500 Heart rate 108 /min SUNIL GRAHAM MD [facility] 11-18-2022 12:08-0500 Respiratory rate 18 /min SUNIL GRAHAM MD [facility] 11-18-2022 12:08-0500 Systolic Blood Pressure Non-Invasive 103 1 SUNIL GRAHAM MD [facility] 10-14-2022 11:01-0500 Body weight 80.06 kg Gretel Quintana MD Work Phone: [facility] 10-14-2022 11:01-0500 Diastolic blood pressure 56 mm[Hg] Gretel Quintana MD Work Phone: [facility] 10-14-2022 11:01-0500 Respiratory rate 18 /min Gretel Quintana MD Work Phone: [facility] 10-14-2022 11:01-0500 Systolic blood pressure 110 mm[Hg] Gretel Quintana MD Work Phone: [facility] 08-19-2022 13:06-0500 Body weight 85.5 kg Braulio Hollingsworth MD Work Phone: [facility] 08-19-2022 13:06-0500 Diastolic blood pressure 82 mm[Hg] Braulio Hollingsworth MD Work Phone: [facility] 08-19-2022 13:06-0500 Systolic blood pressure 102 mm[Hg] Braulio Hollingsworth MD Work Phone: [facility] 08-09-2022 18:09-0400 Diastolic blood pressure 74 mm[Hg] No Primary Care Physician [facility] Work Phone: 08-09-2022 18:09-0400 Heart rate 107 /min No Primary Care Physician [facility] Work Phone: 08-09-2022 18:09-0400 Respiratory rate 18 /min No Primary Care Physician [facility] Work Phone: 08-09-2022 18:09-0400 SaO2% (BldA) [Mass fraction] 94 % No Primary Care Physician [facility] Work Phone: 08-09-2022 18:09-0400 Systolic blood pressure 120 mm[Hg] No Primary Care Physician [facility] Work Phone: 08-09-2022 13:51-0400 Body height 154.94 cm No Primary Care Physician [facility] Work Phone: 08-09-2022 13:51-0400 Body mass index (BMI) [Ratio] 35.9 kg/m2 No Primary Care Physician [facility] Work Phone: 08-09-2022 13:51-0400 Body temperature 98.2 [degF] No Primary Care Physician [facility] Work Phone: 08-09-2022 13:51-0400 Body weight 86.4 kg No Primary Care Physician [facility] Work Phone: 08-04-2022 13:54-0400 Diastolic blood pressure 76 mm[Hg] Melania Mitchell MD Work Phone: [facility] 08-04-2022 13:54-0400 Heart rate 100 /min Melania Mitchell MD Work Phone: [facility] 08-04-2022 13:54-0400 Respiratory rate 16 /min Melania Mitchell MD Work Phone: [facility] 08-04-2022 13:54-0400 SaO2% (BldA) [Mass fraction] 98 % Melania Mitchell MD Work Phone: [facility] 08-04-2022 13:54-0400 Systolic blood pressure 102 mm[Hg] Melania Mitchell MD Work Phone: [facility] 08-04-2022 10:48-0400 Body height 154.9 cm Melania Mitchell MD Work Phone: [facility] 08-04-2022 10:48-0400 Body mass index (BMI) [Ratio] 30.23 kg/m2 Melania Mitchell MD Work Phone: [facility] 08-04-2022 10:48-0400 Body temperature 98.2 [degF] Melania Mitchell MD Work Phone: [facility] 08-04-2022 10:48-0400 Body weight 72.58 kg Melania Mitchell MD Work Phone: [facility] 07-08-2022 15:30-0400 Body temperature 98.2 [degF] No Primary Care Physician [facility] Work Phone: 07-08-2022 15:30-0400 Diastolic blood pressure 78 mm[Hg] No Primary Care Physician [facility] Work Phone: 07-08-2022 15:30-0400 Heart rate 89 /min No Primary Care Physician [facility] Work Phone: 07-08-2022 15:30-0400 Respiratory rate 14 /min No Primary Care Physician [facility] Work Phone: 07-08-2022 15:30-0400 SaO2% (BldA) [Mass fraction] 98 % No Primary Care Physician [facility] Work Phone: 07-08-2022 15:30-0400 Systolic blood pressure 124 mm[Hg] No Primary Care Physician [facility] Work Phone: 06-30-2022 00:36-0400 Diastolic blood pressure 76 mm[Hg] No Primary Care Physician [facility] Work Phone: 06-30-2022 00:36-0400 Heart rate 79 /min No Primary Care Physician [facility] Work Phone: 06-30-2022 00:36-0400 Respiratory rate 16 /min No Primary Care Physician [facility] Work Phone: 06-30-2022 00:36-0400 SaO2% (BldA) [Mass fraction] 96 % No Primary Care Physician [facility] Work Phone: 06-30-2022 00:36-0400 Systolic blood pressure 113 mm[Hg] No Primary Care Physician [facility] Work Phone: 06-29-2022 23:48-0400 Body temperature 98.9 [degF] No Primary Care Physician [facility] Work Phone: 06-29-2022 18:00-0400 Body mass index (BMI) [Ratio] 33 kg/m2 No Primary Care Physician [facility] Work Phone: 06-29-2022 18:00-0400 Body weight 79.37 kg No Primary Care Physician [facility] Work Phone: Encounters Encounter Date Encounter Type Care Provider Facility Start: 08-21-2025 End: 08-21-2025 ambulatory No Primary Care Physician Facility:[facility] Start: 08-15-2025 ambulatory No Primary Care Physici an Facility:[facility] Start: 08-01-2025 End: 08-01-2025 ambulatory No Primary Care Physician Facility:[facility] Start: 08-01-2025 End: 08-01-2025 ambulatory No Primary Care Physician Facility:[facility] Start: 07-30-2025 End: 07-30-2025 ambulatory No Primary Care Physician Facility:[facility] Start: 07-29-2025 End: 07-30-2025 ambulatory No Primary Care Physician Facility:[facility] Start: 07-09-2025 End: 07-09-2025 ambulatory No Primary Care Physician Facility:[facility] Start: 07-09-2025 End: 07-09-2025 ambulatory Geraldine Bradford Facility:[facility] Start: 07-03-2025 End: 07-03-2025 ambulatory Remedios Garcia HR ADMINISTRATOR Facility:[facility] Start: 07-03-2025 End: 07-03-2025 ambulatory Remedios Duttons HR ADMINISTRATOR Facility:[facility] Start: 06-26-2025 End: 06-26-2025 ambulatory [facility] Start: 06-20-2025 End: 06-20-2025 ambulatory [facility] Start: 06-06-2025 End: 06-06-2025 ambulatory Rama Stuart Facility:[facility] Start: 05-30-2025 End: 05-30-2025 ambulatory No Primary Care Physician Facility:[facility] Start: 05-30-2025 End: 05-30-2025 ambulatory Rama Stuart Facility:[facility] Start: 05-14-2025 End: 05-14-2025 ambulatory No Primary Care Physician Facility:[facility] Start: 05-14-2025 End: 05-14-2025 ambulatory Geraldine Bradford Facility:[facility] Start: 05-07-2025 End: 05-07-2025 ambulatory No Primary Care Physician Facility:[facility] Start: 05-07-2025 End: 05-07-2025 ambulatory No Primary Care Physician Facility:[facility] Start: 04-09-2025 End: 04-09-2025 ambulatory No Primary Care Physician Facility:[facility] Start: 04-09-2025 End: 04-09-2025 ambulatory Remedios Garcia HR ADMINISTRATOR Facility:[facility] Start: 03-15-2025 End: 03-15-2025 ambulatory No Primary Care Physician Facility:[facility] Start: 03-13-2025 End: 03-13-2025 ambulatory No Primary Care Physician Facility:[facility] Start: 03-13-2025 End: 03-13-2025 ambulatory No Primary Care Physician Facility:[facility] Start: 01-02-2025 End: 01-02-2025 Emergency department patient visit No Primary Care Physician Facility:[facility] Start: 08-03-2024 End: 08-18-2024 ambulatory KIRSTEN MAST RECORD PRESS SUPERVISOR-NUMERICAL CONTROL ROUTER OPERATOR Facility:[facility] Start: 08-03-2024 End: 08-18-2024 Physical therapy management KIRSTEN MAST RECORD PRESS SUPERVISOR-NUMERICAL CONTROL ROUTER OPERATOR [facility] Start: 02-18-2024 End: 02-19-2024 ambulatory KIRSTEN MAST RECORD PRESS SUPERVISOR-NUMERICAL CONTROL ROUTER OPERATOR Facility:B Start: 02-18-2024 End: 02-18-2024 Patient encounter procedure KIRSTEN MAST RECORD PRESS SUPERVISOR-NUMERICAL CONTROL ROUTER OPERATOR [facility] Start: 10-15-2023 End: 10-16-2023 ambulatory OSMAN BRIAN PMHNP-BC Facility:B Start: 10-15-2023 End: 10-15-2023 Patient encounter procedure OSMAN YUND PMHNP-BC [facility] Start: 03-30-2023 End: 04-02-2023 Evaluation and management of inpatient MARTINEZ NÚÑEZ MD Facility:B Start: 03-30-2023 End: 04-02-2023 Evaluation and management of inpatient SUNIL GRAHAM MD [facility] Start: 03-18-2023 End: 03-18-2023 ambulatory MARTINEZ NÚÑEZ MD Facility:B Start: 03-15-2023 End: 03-16-2023 ambulatory SUNIL GRAHAM MD Facility:B Start: 03-15-2023 End: 03-15-2023 Patient encounter procedure SUNIL GRAHAM MD [facility] Start: 03-09-2023 End: 03-14-2023 ambulatory LONG DICKERSON MD Facility:B Start: 03-09-2023 End: 03-10-2023 ambulatory LOGN DICKERSON MD Facility:B Start: 03-09-2023 End: 03-13-2023 Outreach Lab LONG DICKERSON MD [facility] Start: 03-09-2023 End: 03-09-2023 Patient encounter procedure LONG DICKERSON MD [facility] Start: 03-07-2023 End: 03-07-2023 ambulatory MARTINEZ NÚÑEZ MD Facility:B Start: 03-07-2023 End: 03-07-2023 SAME DAY STAY MARTINEZ NÚÑEZ MD [facility] Start: 03-06-2023 End: 03-06-2023 ambulatory MARTINEZ NÚÑEZ MD Facility:B Start: 03-06-2023 End: 03-06-2023 SAME DAY STAY MARTINEZ NÚÑEZ MD [facility] Start: 01-26-2023 End: 01-26-2023 SAME DAY STAY MARTINEZ NÚÑEZ MD [facility] Start: 01-25-2023 End: 01-25-2023 Patient encounter procedure SUNIL GRAHAM MD [facility] Start: 01-19-2023 End: 01-19-2023 Patient encounter procedure SUNIL GRAHAM MD [facility] Start: 01-05-2023 End: 01-05-2023 Patient encounter procedure SUNIL GRAHAM MD [facility] Start: 12-03-2022 Simin kirk DO Work Phone: [facility] Comment on above: Med Change Request Start: 11-18-2022 End: 11-18-2022 SAME DAY STAY SUNIL GRAHAM MD [facility] Start: 11-13-2022 End: 11-13-2022 Patient encounter procedure 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 RECORD PRESS SUPERVISOR-NUMERICAL CONTROL ROUTER OPERATOR [facility] Start: 10-29-2022 End: 10-29-2022 ambulatory CHEKO MCCLELLAND Facility:[facility] Start: 10-14-2022 End: 10-14-2022 ambulatory GRETEL QUINTANA Facility:[facility] Start: 10-14-2022 End: 10-14-2022 Patient encounter procedure Gretel Quintana MD Work Phone: Obstetrics/Gynecolog y Comment on above: Encounter for superv ision of normal first in second trimester (Primary Dx); Need for influenza vaccination; 15 weeks gestation of Start: 09-21-2022 End: 09-21-2022 ambulatory FLORENCE HEWITT Facility:[facility] Start: 09-17-2022 End: 09-17-2022 ambulatory BRAULIO HOLLINSGWORTH Facility:[facility] Start: 08-21-2022 ambulatory Braulio Hollingsworth MD Work Phone: Obstetrics/Gynecolog y Comment on above: Luz oliveira Start: 08-19-2022 End: 08-19-2022 ambulatory BRAULIO HOLLINGSWORTH Facility:[facility] Start: 08-19-2022 End: 08-19-2022 Patient encounter procedure Braulio Hollingsworth MD Work Phone: Obstetrics/Gynecolog y Comment on above: Encounter for superv ision of normal first in first trimester (Primary Dx) with uncer tain dates in first trimester (Primary Dx) Start: 08-14-2022 End: 08-14-2022 ambulatory TANESHA HILTON Facility:[facility] Start: 08-10-2022 Telephone encounter Braulio connolly MD Work Phone: Obstetrics/Gynecolog y Comment on above: Patient Update Start: 08-09-2022 End: 08-09-2022 Emergency department patient visit No Primary Care Physician [facility] Start: 08-04-2022 End: 08-04-2022 [facility] Start: 08-04-2022 End: 08-04-2022 Emergency department patient visit Melania Mitchell MD Work Phone: [facility] Comment on above: Threatened miscarria ge in early (Primary Dx) Start: 07-20-2022 End: 07-20-2022 ambulatory No Primary Care Physician [facility] Work Phone: Start: 07-20-2022 End: 07-20-2022 Discharged Recurring No Primary Care Physician [facility] Start: 07-20-2022 Registered Recurring No Primary Care Physician [facility] Start: 07-09-2022 Telephone encounter Ledy gonzalez MD Work Phone: [facility] Comment on above: Missed Appointment ( #1 No Show, #1 Letter) Start: 07-08-2022 End: 07-08-2022 Patient encounter procedure No Primary Care Physician [facility] Start: 06-29-2022 End: 06-30-2022 Emergency department patient visit No Primary Care Physician [facility] Start: 05-31-2022 End: 05-31-2022 Emergency department patient visit HIWOT HUDSON Facility:[facility] Start: 12-31-2021 End: 12-31-2021 Emergency department patient visit JAYDE YEAGER Facility:[facility] Start: 01-27-2021 End: 01-27-2021 ambulatory Alex [phone] Lynsey [phone] Facility:[facility] Start: 12-25-2018 Patient encounter procedure [...] Speci men Type: BLOOD SPECIMEN Ordering Facility: [facility] Address: [address] [place] [address] Performed By: #### T SPN #### [facility] CLIA [id number] [address] Start: 08-19-2022 Antibody screen rbc each [...] Speci men Type: BLOOD SPECIMEN Ordering Facility: [facility] Address: [address] [place] [address] Performed By: #### T SPN #### [facility] CLIA [id number] [address] [place] Start: 08-09-2022 Transvaginal [...] of wisdom tooth (body structure) 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 RECORD PRESS SUPERVISOR-NUMERICAL CONTROL ROUTER OPERATOR Plan of Treatment Date Care Activity Detail Author Start: 08-19-2025 PAP TESTING PAP TESTING [facility] Start: 05-14-2024 PAP TESTING PAP TESTING [facility] Start: 08-19-2023 CHLAMYDIA SCREENING (18-24) CHLAMYDIA SCREENING (18-24) [facility] Start: 08-19-2023 GC (GONORRHEA) SCREE SAADIA (18-24) GC (GONORRHEA) SCREENING (18-24) [facility] Start: 10-14-2022 End: 10-14-2023 OBSTETRIC ULTRASOUND WHI OBSTETRIC ULTRASOUND I Anc Imaging Routine Encounter for supervision of normal first in second trimester Expected: 10/14/2022, Expires: 10/14/2023 [facility] Work Phone: Comment on above: Expected: 10/14/2022 , Expires: 10/14/2023 Start: 10-11-2022 DEPRESSION ASSESSMENT DEPRESSION ASS ESSMENT [facility] Start: 08-19-2022 End: 10-19-2022 Hepatitis B virus surface Ab [Presence] in Serum by Immunoassay [facility] Work Phone: Comment on above: Expected: 08/19/2022 , Expires: 10/19/2022 Start: 08-19-2022 End: 10-19-2022 Hepatitis C virus Ab [Presence] in Serum [facility] Work Phone: Comment on above: Expected: 08/19/2022 , Expires: 10/19/2022 Start: 08-19-2022 End: 01-09-2023 HIV 1+2 Ab [Presence] in Serum or Plasma by Immunoassay [facility] Work Phone: Comment on above: Expected: 08/19/2022 , Expires: 10/19/2022 Start: 08-19-2022 End: 08-19-2023 NUCHAL TRANSLUCENCY WHI NUCHAL TRANSLUCENCY WHI Anc Imaging Routine Encounter for supervision of normal first in first trimester Expected: 08/19/2022, Expires: 08/19/2023 [facility] Work Phone: Comment on above: Expected: 08/19/2022 , Expires: 08/19/2023 Start: 08-19-2022 End: 10-19-2022 RUBELLA IGG AB [facility] Work Phone: Comment on above: Expected: 08/19/2022 , Expires: 10/19/2022 Start: 08-19-2022 End: 10-19-2022 SYPHILIS TOTAL W/REFLEX [facility] Work Phone: Comment on above: Expected: 08/19/2022 , Expires: 10/19/2022 Start: 07-08-2022 Patient referral [facility] Work Phone: Start: 06-11-2022 Influenza vaccination INFLUENZA (#1) [facility] Start: 05-14-2022 CHLAMYDIA SCREENING (18-24) CHLAMYDIA SCREENING (18-24) [facility] Start: 05-14-2022 GC (GONORRHEA) SCREE SAADIA (18-24) GC (GONORRHEA) SCREENING (18-24) [facility] Start: 05-11-2022 Influenza vaccination Flu vaccine (# 1) [facility] Start: 05-07-2022 Urine microalbumin profile DTAP,TDAP,TD (7 - Td or Tdap) [facility] Start: 10-11-2021 DEPRESSION ASSESSMENT DEPRESSION ASS ESSMENT [facility] Start: 05-17-2021 COVID-19 VACCINE (3 - Booster for Pfizer series) COVID-19 VACCINE (3 - Booster for Pfizer series) [facility] Start: 2020 Screening for malign ant neoplasm of cervix Pap smear [facility] Start: 2018 DTaP/Tdap/Td vaccine (1 - Tdap) DTaP/Tdap/Td vaccine (1 - Tdap) [facility] Start: 2017 HEPATITIS C SCREENING HEPATITIS C SC REENING [facility] Start: 2017 Hepatitis C screening Hepatitis C sc reen [facility] Start: 2017 HIV SCREENING HIV SCREENING [facility] Start: 2015 Screening for Chlamy jarod trachomatis Chlamydia/GC screen [facility] Start: 2014 HIV screening HIV screen [facility] Start: 2013 PEDS TO ADULT TRANSI TION ANNUAL ASSESSMENT PEDS TO ADULT TRANSITION ANNUAL ASSESSMENT [facility] Start: 2011 Depression Screen Depression Screen [facility] Start: 2011 PEDS TO ADULT TRANSI TION INITIAL DISCUSSION PEDS TO ADULT TRANSITION INITIAL DISCUSSION [facility] Start: 2010 HPV vaccine (1 - 2-d ose series) HPV vaccine (1 - 2-dose series) [facility] Start: 2009 MENINGOCOCCAL B: Consider based on risk (1 of 2 - Risk Bexsero 2-dose series) MENINGOCOCCAL B: Consider based on risk (1 of 2 - Risk Bexsero 2-dose series) [facility] Start: 2000 Varicella vaccine (1 of 2 - 2-dose childhood series) Varicella vaccine (1 of 2 - 2-dose childhood series) [facility] Start: 04-09-2000 COVID-19 VACCINE (#1) COVID-19 VACCI NE (#1) [facility] Bacteria identified in Urine by Culture URINE CULTURE Microbiology Routine Encounter for supervision of normal first in first trimester 08/19/2022 2:08 PM [facility] Work Phone: Chlamydia trachomatis+Neisseria gonorrhoeae DNA [Presence] in Unspecified specimen by CHICHO with probe detection GC/CHLAMYDIA DNA DET Lab Routine Encounter for supervision of normal first in first trimester 08/19/2022 2:13 PM EST [facility] Work Phone: PAP FLUID CERVICAL SCREENING PAP FLUID CERVICAL SCREENING Lab Routine Encounter for supervision of normal first in first trimester Ordered: 08/19/2022 [facility] Work Phone: Comment on above: Ordered: 08/19/2022 Patient Education [facility] Work Phone: Patient referral [facility] Work Phone: [facility] Immunizations Immunization Date Immunization Notes Care Provider Dion rollins 08-24-2023 tetanus toxoid, redu ibis diphtheria toxoid, and acellular pertussis vaccine, adsorbed KIRSTEN MAST RECORD PRESS SUPERVISOR-NUMERICAL CONTROL ROUTER OPERATOR [facility] 02-01-2023 tetanus toxoid, redu ibis diphtheria toxoid, and acellular pertussis vaccine, adsorbed; Translations: [Boostrix (Tdap)] MARTINEZ NÚÑEZ MD [facility] Comment on above: Result Comment: [facility] [phone] 10-14-2022 influenza virus vacc ine, unspecified formulation KIRSTEN MAST RECORD PRESS SUPERVISOR-NUMERICAL CONTROL ROUTER OPERATOR [facility] 10-14-2022 influenza, injectabl e, quadrivalent, contains preservative Gretel Quintana MD Work Phone: [facility] 03-22-2021 SARS-CoV-2 mRNA (tozinameran) vaccine KIRSTEN MAST RECORD PRESS SUPERVISOR-NUMERICAL CONTROL ROUTER OPERATOR [facility] 03-01-2021 SARS-CoV-2 mRNA (tozinameran) vaccine KIRSTEN MAST RECORD PRESS SUPERVISOR-NUMERICAL CONTROL ROUTER OPERATOR [facility] 09-20-2020 influenza virus vacc ine, unspecified formulation KIRSTEN MAST RECORD PRESS SUPERVISOR-NUMERICAL CONTROL ROUTER OPERATOR [facility] 09-08-2019 influenza virus vacc ine, unspecified formulation KIRSTEN MAST RECORD PRESS SUPERVISOR-NUMERICAL CONTROL ROUTER OPERATOR [facility] 03-02-2018 varicella virus vaccine JT TA MAST RECORD PRESS SUPERVISOR-NUMERICAL CONTROL ROUTER OPERATOR [facility] 07-26-2017 influenza virus vacc ine, unspecified formulation [facility] 05-11-2017 meningococcal polysaccharide (groups A, C, Y and W-135) diphtheria toxoid conjugate vaccine (MCV4P) [facility] 02-24-2016 meningococcal polysaccharide (groups A, C, Y and W-135) diphtheria toxoid conjugate vaccine (MCV4P) Ledy Vaughn MD Work Phone: [facility] 07-05-2014 influenza virus vacc ine, unspecified formulation [facility] 07-05-2014 influenza, injectabl e, quadrivalent, preservative free Ledy Vaughn MD Work Phone: [facility] Work Phone: 02-20-2014 human papilloma viru s vaccine, quadrivalent Ledy Vaughn MD Work Phone: [facility] 02-20-2014 Human Papillomavirus Quadval [facility] 05-18-2013 human papilloma viru s vaccine, quadrivalent Ledy Vaughn MD Work Phone: [facility] Work Phone: 05-07-2012 human papilloma viru s vaccine, quadrivalent Ledy Vaughn MD Work Phone: [facility] 05-07-2012 Meningococcal, MCV4, unspecified conjugate formulation(groups A, C, Y and W-135) Ledy Vaughn MD Work Phone: [facility] 05-07-2012 tetanus toxoid, redu ibis diphtheria toxoid, and acellular pertussis vaccine, adsorbed Ledy Vaughn MD Work Phone: [facility] 05-07-2012 varicella virus vaccine Chayo Harris MD Work Phone: [facility] 01-09-2005 diphtheria, tetanus toxoids and acellular pertussis vaccine Ledy Vaughn MD Work Phone: [facility] 01-09-2005 measles, mumps and rubella virus vaccine Ledy Vaughn MD Work Phone: [facility] 01-09-2005 poliovirus vaccine, inactivated Ledy Vaughn MD Work Phone: [facility] 04-26-2001 pneumococcal conjuga te vaccine, 7 valent Ledy Vaughn MD Work Phone: [facility] 02-17-2001 diphtheria, tetanus toxoids and acellular pertussis vaccine Ledy Vaughn MD Work Phone: [facility] Work Phone: 02-17-2001 haemophilus influenz ae type b vaccine, HbOC conjugate Ledy Vaughn MD Work Phone: [facility] Work Phone: 02-17-2001 pneumococcal conjuga te vaccine, 7 valent Ledy Vaughn MD Work Phone: [facility] 11-03-2000 measles, mumps and rubella virus vaccine Ledy Vaughn MD Work Phone: [facility] Work Phone: 11-03-2000 measles/mumps/rubell a virus vaccine KIRSTEN CISNEROS RECORD PRESS SUPERVISOR-NUMERICAL CONTROL ROUTER OPERATOR [facility] 11-03-2000 varicella virus vaccine Chayo Harris MD Work Phone: [facility] Work Phone: 05-05-2000 diphtheria, tetanus toxoids and acellular pertussis vaccine Ledy Vaughn MD Work Phone: [facility] Work Phone: 05-05-2000 haemophilus influenz ae type b vaccine, HbOC conjugate Ledy Vaughn MD Work Phone: [facility] Work Phone: 05-05-2000 hepatitis B vaccine, pediatric or pediatric/adolescent dosage Ledy Vaughn MD Work Phone: [facility] Work Phone: 05-05-2000 poliovirus vaccine, inactivated Ledy Vaughn MD Work Phone: [facility] Work Phone: 03-03-2000 diphtheria, tetanus toxoids and acellular pertussis vaccine Ledy Vaughn MD Work Phone: [facility] Work Phone: 03-03-2000 haemophilus influenz ae type b vaccine, HbOC conjugate Ledy Vaughn MD Work Phone: [facility] Work Phone: 03-03-2000 poliovirus vaccine, inactivated Ledy Vaughn MD Work Phone: [facility] Work Phone: 1999 diphtheria, tetanus toxoids and acellular pertussis vaccine Ledy Vaughn MD Work Phone: [facility] Work Phone: 1999 haemophilus influenz ae type b vaccine, HbOC conjugate Ledy Vaughn MD Work Phone: [facility] Work Phone: 1999 hepatitis B vaccine, pediatric or pediatric/adolescent dosage Ledy Vaughn MD Work Phone: [facility] Work Phone: 1999 poliovirus vaccine, inactivated Ledy Vaughn MD Work Phone: [facility] Work Phone: 1999 hepatitis B pediatri c vaccine KIRSTEN CISNEROS RECORD PRESS SUPERVISOR-NUMERICAL CONTROL ROUTER OPERATOR [facility] 1999 hepatitis B vaccine, pediatric or pediatric/adolescent dosage Ledy Vaughn MD Work Phone: [facility] Work Phone: Payers Date Payer Category Payer Self-pay [id number] 2025 Unknown [id number] 2023 Unknown [id number] 2021 Unknown [id number] 2021 Unknown [id number] 2021 Unknown [id number] 1999 Unknown [id number] 2.16. 840.1.292402.3.579.2.356 1999 Unknown [id number] 2.16. 840.1.590153.3.579.2.356 1999 Unknown [id number] 2.16.8 40.1.937422.3.579.2.419 1999 Unknown [id number] 2.16. 840.1.947102.3.579.2.668 1999 Unknown [id number] 2.16.8 40.1.548394.3.579.2.627 1999 Unknown [id number] 2.16.8 40.1.015716.3.579.2.627 1999 Unknown [id number] 2.16.8 40.1.024739.3.579.2.627 1999 Unknown [id number] 2.16.8 40.1.705512.3.579.2.627 1999 Unknown [id number] 2.16.8 40.1.052328.3.579.2.627 1999 Unknown [id number] 2.16.8 40.1.834568.3.579.2.627 1999 Unknown [id number] 2.16.8 40.1.465749.3.579.2.627 1999 Unknown [id number] 2.16.8 40.1.361594.3.579.2.627 1999 Unknown [id number] 2.16.8 40.1.805690.3.579.2.627 1999 Unknown [id number] 2.16.8 40.1.908586.3.579.2.627 1999 Unknown [id number] 2.16. 840.1.824049.3.579.2.479 1999 Unknown [id number] 2.16. 840.1.521900.3.579.2.479 1999 Unknown [id number] 2.16. 840.1.274735.3.579.2.479 Unknown [id number] Unknown [facility] [id number] Unknown [facility] [id number] Unknown [facility] [id number] Unknown [id number] 2.16.8 40.1.512643.3.579.2.462 Unknown [id number] 2.16.8 40.1.151028.3.579.2.462 Unknown [id number] 2.16.8 40.1.903899.3.579.2.462 Unknown [id number] 2.16.8 40.1.889379.3.579.2.462 Unknown [id number] 2.16.8 40.1.810616.3.579.2.462 Unknown [id number] 2.16.8 40.1.649535.3.579.2.462 Unknown [id number] 2.16.8 40.1.198433.3.579.2.462 Unknown [id number] 2.16.8 40.1.867109.3.579.2.462 Unknown [id number] 2.16.8 40.1.025808.3.579.2.462 Unknown [id number] 2.16.8 40.1.031820.3.579.2.462 Unknown [id number] 2.16.8 40.1.737233.3.579.2.462 Unknown [id number] 2.16.8 40.1.128394.3.579.2.462 Unknown [id number] 2.16.8 40.1.449384.3.579.2.462 Unknown [id number] 2.16.8 40.1.720787.3.579.2.462 Unknown [id number] 2.16.8 40.1.067240.3.579.2.462 Unknown [id number] 2.16.8 40.1.393060.3.579.2.462 Unknown [id number] 2.16.8 40.1.587568.3.579.2.462 Unknown [id number] 2.16.8 40.1.109903.3.579.2.462 Unknown [id number] 2.16.8 40.1.060817.3.579.2.462 Unknown [id number] 2.16.8 40.1.056043.3.579.2.462 Unknown [id number] 2.16.8 40.1.275359.3.579.2.462 Unknown [id number] 2.16.8 40.1.861982.3.579.2.462 Unknown [id number] 2.16.8 40.1.279981.3.579.2.462 Unknown [id number] 2.16.8 40.1.627492.3.579.2.462 Unknown [id number] 2.16.8 40.1.472221.3.579.2.462 Unknown [id number] 2.16.8 40.1.143661.3.579.2.462 Unknown [id number] 2.16.8 40.1.629186.3.579.2.462 Social History Date Type Detail Facility Start: 12-31-2021 End: 07-28-2024 Tobacco smoking status NHIS Never smoked tobacco [facility] Start: 12-31-2021 End: 08-19-2022 Tobacco use and exposure Smokeless tobacco non-user [facility] Start: 12-31-2021 End: 10-14-2022 Alcohol intake Ex-drinker (finding) [facility] Start: 06-27-2013 End: 08-19-2022 Tobacco Comment dad smokes outside [facility] Start: 2000 Sex Assigned At Female [facility] Start: 06-28-2022 End: 08-19-2022 Exposure to SARS-CoV-2 (event) Not sure [facility] Start: 2000 Sex Assigned At Not on file [facility] [employer] Work Phone: Start: 08-09-2022 End: 08-09-2022 Tobacco smoking status NHIS Unknown if ever smoked [facility] Work Phone: Start: 10-24-2020 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 03-07-2023 Functional Status Ambulating in room [facility] Mental Status Date Assessment Result Facility 03-07-2023 Mental Status Orientation Oriented x 4 [facility] Clinical Notes 07-09-2022 to 02-18-2024 Laboratory Note [...] 02/19/2024 1:39:46 AM Ordering Provider: KIRSTEN CISNEROS [facility] 10-15-2023 Evaluation + Plan note Diagnostic Tests PendingVitamin B12 Level 10/15/23Folate Level 10/15/23 Future Scheduled TestsGlucose Level 07/20/23Lipid Profile 07/20/23 [facility] 04-02-2023 Evaluation + Plan note Extrac barbara from: Title:Clinical Document Author:LONG DICKERSON MD Date:04/02/23 Subjective Comfortable with oral Motrin Lochia small. Baby is eating well per bottle Stayed overnight due to elevated bili levels in baby Objective Looks very well. Independent in room. Abdomen: Soft, uterus firm at U- 2 Extremities: Nontender with 1+ edema VITALS [id number](kg) 04/02 00:3136.6--587338--16/20 78.0 04/01 16:2036.5--7916---- 04/01 08:4136.1--8114---- 03/31 23:3036.6--8416---- [...] q6h, 03/30/23 19:48:00 EDT Problems (4) Anxiety ([id number]) Body mass index 30+ - obesity ([id number]) ([id number]) UTI (urinary tract infection) ([id number]) ASSESSMENT/PLAN: PPD #2 after . Doing very well. Home today. Extracted from: Title:Clinical Document Author:LONG DICKERSON MD Date:03/31/23 Subjective Comfortable with oral Motrin Lochia small. Baby is nursing well. . Objective Looks very well. Independent in room. CVS: RRR Lungs: CTA B Abdomen: Soft, uterus firm at U- 1 Extremities: Nontender with 1+ edema VITALS [id number](kg) 03/31 08:3636.8--7816----03/30 78.0 03/31 05:4936--8216---- 03/31 02:00 RA 03/30 20:15----82326--DX 03/30 20:00----8018--RA 24 Hr Tmax: 36.8 at [...] q6h, 03/30/23 19:48:00 EDT Problems (4) Anxiety ([id number]) Body mass index 30+ - obesity (671639216) (123176250) UTI (urinary tract infection) ([id number]) ASSESSMENT/PLAN: PPD #1 after Outlet vacuum delivery [...] 2 Days /Parity G1,P0(0,0,0,0) Multiple Fetuses No, Anjera Current Weight 79kg Pre-Preg Weight 77kg Height 155cm BMI 32.9kg/m2 Blood Type O POS RPR Non-Reactive RPR, External Nonreactive Rubella, External Immune Hepatitis B, External Negative HIV Antibodies, External Negative 1GTT is wnl GBBS neg REVIEW OF SYSTEMS: All negative ACTIVE PROBLEMS: (4) Anxiety ([id number]) Body mass index 30+ - obesity (230330758) (169301947) UTI (urinary tract infection) ([id number]) ALLERGIES: (1) CeleXA FAMILY HISTORY: No inheritable diseases. SOCIAL HISTORY: . Denies tobacco use Denies alcohol use. No illicit drug use. PHYSICAL EXAM: VITALS: YfzasdCugtLWDenfdUWUrN8FIF3QegxUd(kg) 03/30 10:5735.6--7518----03/30 78.0 03/30 10:0535.9 03/30 09:0536.1 [...] 02:00:00 PM Scheduled Provider:SUNIL GRAHAM MD Location:[facility] Appointment Type:[facility] 06-22-2023 Note day #2 progress note: [...] MARTINEZ NÚÑEZ MD on 04/01/2023 09:01 AM [facility]06-21-2023 Hospital Discharge instructions Patient Education 03/31/2023 [...] work with your health care provider or heritage consultant. If you are not : ?Avoid [...] about methods of control (contraception). Medicines Take lcbu-yge-ghfjjab and prescription medicines only as told by [...] 07/24/2008 Document Revised: 09/30/2018 Document Reviewed: 07/11/2018 [employer] Patient Education 2020 [employer]. 03/31/2023 12:34:52 7b- Depression and Blues (07/2020) [...] psychosis. Often, a screening tool called the [place] Depression Scale is used to diagnose depression [...] music. Avoid alcohol. Ask for help with equipment maintenance supervisor, cooking, grocery shopping, or running errands as needed. Do nottry to do everything. Talk to people close to you about how you are feeling. Get support from your partner, family members, and friends. Try to stay positive in how you think. Think about the things you are grateful for. Do not spend a lot of time alone. Only take kksp-ndx-qgggyoi or prescription medicine as directed by your [...] not doing well or get worse. Resource: [facility] Patient Information 2015 [facility] This information is not intended to replace advicegiven to you by your health care provider. Make sure you discuss any questions you have with your health care provider. Follow Up Care 03/30/2023 06:39:24 With:LONG DICKERSON Address: [address] [place] [address] [place] [address] [phone] Business (1) When: Unknown [facility] 06-21-2023 Note Date of Service 03/31/23 Chief Complaint Subjective 22 [facility] Doing well. pain [...] 1 herlinda, Perineum, AsDirected benzocaine topical 20% Imbler 1 spray(s), Perineum, q1h bisacodyl 10 mg [...] SUNIL GRAHAM MD on 03/31/2023 11:37 AM [facility]06-21-2023 Anesthesiology Consult note Patient: LUZ OLIVEIRA Age: 22 years Sex: Female : 2000 Associated Diagnoses: None Author: JENNIFER MERA RECORD PRESS SUPERVISOR-MAMMOGRAPHER Assessment Postanesthesia assessment Vitals: Vital signs from [...] mmHg Diastolic Blood Pressure Non-Invasive 94 mmHg MD 03/30/2023 18:56 EDT Heart Rate Monitored 98 [...] by JENNIFER MERA on 03/31/2023 06:15 AM [facility]06-20-2023 Note Patient seen at 1730 and [...] LONG DICKERSON MD on 03/30/2023 05:30 PM [facility]06-20-2023 Note Patient seen at 1730 and [...] LONG DICKERSON MD on 03/30/2023 05:30 PM [facility]06-20-2023 Note Patient seen at 1730 and [...] LONG DICKERSON MD on 03/30/2023 05:30 PM [facility]06-20-2023 Note CHIEF COMPLAINT: Membranes ruptured with [...] SYSTEMS: All negative ACTIVE PROBLEMS: (4) Anxiety ([id number]) Body mass index 30+ - obesity (980108653) (072579831) UTI (urinary tract infection) ([id number]) ALLERGIES: (1) CeleXA FAMILY HISTORY: No inheritable diseases. SOCIAL HISTORY: . Denies tobacco use Denies alcohol use. No illicit drug use. PHYSICAL EXAM: VITALS: WrwmhsXrdfKDPujswXUOyT0EAX0MsdzOv(kg) 03/30 10:5735.6--7518----03/30 78.0 03/30 10:0535.9 03/30 09:0536.1 [...] LONG DICKERSON MD on 04/02/2023 11:08 AM [facility]06-20-2023 Anesthesiology Consult note Patient: LUZ OLIVEIRA Age: 22 years Sex: Female : 2000 Associated Diagnoses: None Author: JENNIFER MERA RECORD PRESS SUPERVISOR-MAMMOGRAPHER Preoperative Information laboring Anesthesia history Patient's history: [...] Problem list: Medical Anxiety / SNOMED CT [id number] / Confirmed Body mass index 30+ - obesity / SNOMED CT 507474732 / Confirmed / SNOMED CT 900057846 / Confirmed UTI (urinary tract infection) / SNOMED CT [id number] / Confirmed, Active Problems (4) Anxiety Body mass index 30+ - obesity UTI (urinary tract infection) Histories Past Medical History: Active Anxiety ([id number]) UTI (urinary tract infection) ([id number]) Family History: Cancer Grandparent Comments: 10/22/2022 14:27 AUGIE Navarro Poonam Sanchez CHESS INSTRUCTOR maternal, brain Cardiac pacemaker Mother Diabetes mellitus Mother Asthma Grandparent Breast cancer Grandparent Heart disease Mother HTN - Hypertension Father COPD Grandparent Diabetes Grandparent Procedure history: [place] tooth ([id number]). Social History Social & Psychosocial Habits Alcohol [...] Signs(last 24 hrs) Last Charted Heart Rate Ortgahdpj09 bpm (MAR 30 10:57) Resp Rate 18 br/min (MAR 30 10:57) QOS918 mmHg (MAR 30 10:57) DBPL 59mmHg (MAR 30 10:57) BMI32.47 (MAR 30 07:49) Measurements from flowsheet : Measurements 03/30/2023 7:49 EDT Height 155.0 cm Admission Weight 78 kg [place] Body Weight 47.85 kg BSA Admission 1.77 [...] Height 155.0 cm Admission Weight 78 kg [place] Body Weight 47.85 kg BSA Admission 1.77 [...] Adoption No Surrogate No Discharge Physician P [facility] Participant No Safe Sleep Environment for Baby [...] Teaching Evaluation Refused information Preferred Written Language Rwandan Preferred Spoken Language Rwandan Chief Complaint SROM Mode of Arrival Ambulatory Information Given by Patient Patient's Current Physicians Dr [facility] Emergency Contact Number Luis Daniel Oliveira [phone] Belongings At Bedside Cell phone, Rn Hematology Personal Home Medications Received No home medications [...] FHR Interpretation Category: Category One 03/30/2023 7:14 [facility] History and Physical History and Physical . Assessment and Plan [place] Society of Anesthesiologists (ASA) physical status classification: Class II. Anesthetic Preoperative Plan Anesthetic technique: Epidural. Informed consent: signed by patient. Digitally Signed by JENNIFER MERA on 03/30/2023 01:37 PM [facility]06-20-2023 Note Date of Service 03/30/23 Chief Complaint SROM History of Present Illness 22 yo G1@39.2 presents with large gush of fluid around 0600 and regular contractions. c/bobesity and recent growth US AC 7%le overall 15%le. Noted blood tinged fluid. Growth at 37 weeks for obesity showed borderline low fluid 5 cm, growth in 15%le. 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 LEADER history: Menarche: Menses: Menopause: n/a HRT: n/a [...] of breast bx: no Colonoscopy: DXA: Family BRAND LEADER history: Breast/colon/ovarian/uterine cancer: MGM w breast ca [...] infection) Historical No qualifying data Procedure/Surgical History [place] tooth Medications Home Medications (5) Active AD [...] SUNIL GRAHAM MD on 03/30/2023 07:30 AM [facility]05-28-2023 Hospital Discharge instructions Patient Education 03/07/2023 20:26:05 7 - Labor and Delivery Outpatient Instructions (CUSTOM) [facility] OUTPATIENT HOME-GOING INSTRUCTIONS _X_ [...] crackers, bananas, Jell-O, cooked carrots, applesauce. ___ [place] diet. Avoid caffeine, chocolate, alcohol, spiced/greasy foods. [...] the nearest Emergency Room for assistance. Form [id number] D: 09/18 Document Released: 09/27/2006 Document Revised: 09/15/2012 Document Reviewed: 09/27/2006 [facility] Patient Information 2012 Archive. Follow Up Care 03/07/2023 19:56:20 With:WILTON AN, MARTINEZ Bautista Address: [address] [place] [address] [place] [address] [phone] When:03/09/2023 [facility] 05-27-2023 Hospital Discharge instructions Patient Education 03/06/2023 18:27:44 7 - Labor and Delivery Outpatient Instructions (CUSTOM) [facility] OUTPATIENT HOME-GOING INSTRUCTIONS _X_ [...] crackers, bananas, Jell-O, cooked carrots, applesauce. ___ [place] diet. Avoid caffeine, chocolate, alcohol, spiced/greasy foods. [...] the nearest Emergency Room for assistance. Form [id number] D: 09/18 Document Released: 09/27/2006 Document Revised: 09/15/2012 Document Reviewed: 09/27/2006 ExitCare Patient Information 2012 Archive. [facility] 04-18-2023 Hospital Discharge instructions Patient Education 01/26/2023 03:27:22 7 - Labor and Delivery Outpatient Instructions (CUSTOM) [facility] OUTPATIENT HOME-GOING INSTRUCTIONS _X_ [...] crackers, bananas, Jell-O, cooked carrots, applesauce. ___ [place] diet. Avoid caffeine, chocolate, alcohol, spiced/greasy foods. [...] the nearest Emergency Room for assistance. Form [id number] D: 09/18 Document Released: 09/27/2006 Document Revised: 09/15/2012 Document Reviewed: 09/27/2006 ExitCare Patient Information 2012 Archive. Follow Up Care 01/26/2023 00:53:10 With:Follow up with primary care provider Address:Unknown When: Unknown [facility] 02-25-2023 Miscellaneous Notes* Telephone Encounter - Alex Garcia DO - 12/05/2022 5:08 PM EST Not a CFM patient documented in this encounterL[facility] Hospital Discharge instructions Patient Education [...] crackers, bananas, Jell-O, cooked carrots, applesauce. ___ [place] diet. Avoid caffeine, chocolate, alcohol, spiced/greasy foods. [...] the nearest Emergency Room for assistance. Form [id number] D: 09/18 Document Released: 09/27/2006 Document Revised: 09/15/2012 Document Reviewed: 09/27/2006 ExitCare Patient Information 2012 Archive. Follow Up Care 11/18/2022 11:50:05 With:SUNIL GRAHAM Address: [address] [place] [address] [facility] [address]- [phone] Business (1) When: Unknown [facility] 01-19-2023 NoteHNO ID: [id number] Author: Tad Shaw DO Service: Obstetrics Author [...] with plan. Tad Shaw DO 4:21 AM 10/29/2022[place]01-19-2023 NoteHNO ID: [id number] Author: Tad Shaw DO Service: Obstetrics Author [...] intractable nausea/vomiting. She was sent her from [facility] Main ED. In the ED, patient [...] Diagnosis Date Cognitive disorder IEP per the [facility] Psychologist [facility] Kidney stone [...] October 29, 2022 TIME: 3:25 [facility]01-19-2023 NoteCOVID 19 RESULT: SARS-CoV-2 (Agent of COVID-19) Not Detected by RT-PCR or equivalent method. This test has been authorized by FDA under an Emergency Use Authorization (EUA). INFLUENZA A PCR: Negative for Influenza A by RT-PCR INFLUENZA B PCR: Negative for Influenza B by RT-PCR RSV PCR: Negative for Respiratory Syncytial Virus (RSV) by [facility] Hospital[facility] on above:Performed By: #### [id number] ####[facility] LABORATORYCLIA [id number] [place] [address] [place] [id number] Miscellaneous Notes* Quick Notes - Gretel Quintana [...] vaccine). Gretel Quintana MD documented in this encounterL[facility]01-04-2023 Nurse Note* Aimee Desir Ma - 10/14/2022 11:01 AM EST Movement? Flutters Vaginal Bleeding: NO Vaginal fluid leakage of fluid: NO Contractions: no contractions documented in this encounterLakehealth [facility]12-08-2022 NoteHNO ID: [id number] Author: Braulio Hollingsworth MD Service: ? Author Type: Physician Type: Progress Notes Filed: 09/17/2022 2:28 PM Note Text: Please refer to quick note and flow sheet. EL[facility]22 NoteHNO ID: [id number] Author: Braulio Hollingsworth MD Service: ? 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 loratadine (CLARITIN) 10 mg tablet Take 1 tablet by mouth once daily. fluticasone (FLONASE) 50 mcg/actuation nasal spray Use 1 Imbler in each nostril once daily. No current [...] 4 weeks or sooner prn. Braulio Hollingsworth [facility]11-09-2022 NoteHNO ID: [id number] Author: Braulio Hollingsworth MD Service: ? Author Type: Physician Type: Progress Notes Filed: 08/19/2022 5:28 PM Note Text: OB point of care ultrasound was performed. See imaging tab for details. Braulio Hollingsworth [facility]11-09-2022 History of Present illness Narrative* Braulio Hollingsworth [...] No Multivitamin with Folic acid: Yes Occupation: [employer] student Shinto or heritage: Yes Would refuse blood transfusion if medically necessary: no BMI 35.62 kg/(m^2) Patient BMI over 30? 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 loratadine (CLARITIN) 10 mg tablet Take 1 tablet by mouth once daily. fluticasone (FLONASE) 50 mcg/actuation nasal spray Use 1 Imbler in each nostril once daily. No current [...] prn. Braulio Hollingsworth MD documented in this encounterLake[facility]11-09-2022 Instructions* Patient Instructions* Braulio Hollingsworth MD - 08/19/2022 1:48 PM EST Please select the following link to access the [facility] Your Guide to a Healthy . [email or web address] documented in this encounterLakehealth [facility] Center11-09-2022 History of Present illness Narrative* Braulio Hollingsworth MD - 08/19/2022 1:41 PM EST OB point of care ultrasound was performed. See imaging tab for details. Braulio Hollingsworth MD documented in this encounterLakehealth [facility] Center11-09-2022 Nurse Note* Jennifer Stevenson MA - 08/19/2022 1:07 PM EST Movement? Too early Vaginal Bleeding: YES/MD NOTIFIED-Has had for 2 weeks Vaginal fluid leakage of fluid: NO Contractions: no contractions documented in this encounterLakehealth [facility] Center11-04-2022 NoteHNO ID: [id number] Author: Zuhair Condon DO Service: Obstetrics Author [...] 14, 2022 TIME: 9:44 PM PAGER/CONTACT #: [phone] [facility]22 NoteHNO ID: [id number] Author: Zuhair Condon DO Service: Obstetrics Author [...] Patient states that she originally went to [place] ED on 08/09/22. She states that she [...] Diagnosis Date Cognitive disorder IEP per the [facility] Psychologist [facility] Kidney stone [...] dyspnea GI: Denies abdominal pain, nausea, vomiting /BRAND LEADER: Reports daily vaginal bleeding since Wednesday. No [...] to see her sooner. documented in this encounterLakehealth [facility] Center10-25-2022 Hospital Discharge instructions* Discharge Instructions* Melania Mitchell MD - 08/04/2022 1:22 PM EDT Please call your OB today to schedule a follow up visit in the next 2 days. * Attachments The following attachments cannot be sent through Care Everywhere. * Miscarriage: Threatened (Rwandan) documented in this encounterSUMMA Work Phone: [phone] 793-149809-29-2022 Miscellaneous Notes* Telephone Encounter - Verónica Alegre [...] 09, 2022 12:24 PM documented in this encounterLakehealth [facility] CenterEvaluation + Plan note Future Appointments Appointment Date:11/16/2022 02:00:00 PM Scheduled Provider:SUNIL GRAHAM MD Location:[facility] Appointment Type: OV OB Routine Follow Up [facility] Evaluation + Plan note Future Appointments Appointment Date:12/14/2022 02:15:00 PM Scheduled Provider:SUNIL GRAHAM MD [facility] Appointment Type: OV OB Routine Follow Up Appointment Date:12/23/2022 08:30:00 AM Scheduled Provider: Location:[facility] Appointment Type:US OB > 14 wks Future Scheduled Tests Radiology* US OB Limited/Transvaginal 01/11/23 * US OB > 14 weeks 12/23/22 [facility] Evaluation + Plan note Future Appointments [...] Antibody 12/14/22 Radiology* US OB Limited/Transvaginal 01/11/23 [facility] Evaluation + Plan note Future Appointments Appointment Date:01/25/2023 01:00:00 PM Scheduled Provider:SUNIL GRAHAM MD Location:[facility] Appointment Type: OV OB Routine Follow [...] Antibody 12/14/22 Radiology* US OB Limited/Transvaginal 01/11/23 [facility] Evaluation + Plan note Future Appointments Appointment Date:02/01/2023 01:15:00 PM Scheduled Provider:SUNIL GRAHAM MD Location:[facility] Appointment Type:[facility] OB Routine Follow Up Appointment Date:03/15/2023 02:00:00 PM Scheduled Provider: Location:[facility] Appointment Type:US OB > 14 [...] * US OB > 14 weeks 03/15/23 [facility] Evaluation + Plan note Future Appointments Appointment Date:03/09/2023 01:45:00 PM Scheduled Provider:LONG DICKERSON MD Location:[facility] Appointment Type:[facility] OB Routine Follow Up Appointment Date:03/15/2023 02:00:00 PM Scheduled Provider: Location:[facility] Appointment Type:US OB > 14 [...] * US OB > 14 weeks 03/15/23 [facility] Evaluation + Plan note Future Appointments Appointment Date:03/15/2023 02:00:00 PM Scheduled Provider: Location:[facility] Appointment Type:US OB > 14 wks Appointment Date:03/16/2023 02:30:00 PM Scheduled Provider:LONG DICKERSON MD Location:[facility] Appointment Type:[facility] OB Routine Follow Up Diagnostic [...] * US OB > 14 weeks 03/15/23 [facility] Evaluation + Plan note Future Appointments Appointment Date:03/15/2023 02:00:00 PM Scheduled Provider: Location:[facility] Appointment Type:US OB > 14 wks Appointment Date:03/16/2023 02:30:00 PM Scheduled Provider:LONG DICKERSON MD Location:[facility] Appointment Type:[facility] OB Routine Follow Up Future [...] * US OB > 14 weeks 03/15/23 [facility] Evaluation + Plan note Future Appointments Appointment Date:03/16/2023 02:30:00 PM Scheduled Provider:LONG DICKERSON MD Location:[facility] Appointment Type: OV OB Routine Follow [...] Urine 01/25/23 Radiology* US OB Limited/Transvaginal 01/11/23 [facility] Evaluation + Plan note Future Appointments Appointment Date:07/28/2024 08:30:00 AM Scheduled Provider:KIRSTEN CISNEROS Location:[facility] Appointment Type:PC Wellness Annual Future Scheduled Tests Laboratory* Glucose Level 07/20/23 * Lipid Profile 07/20/23 [facility] Evaluation + Plan note Future Appointments Appointment Date:08/25/2024 07:30:00 AM Scheduled Provider:KIRSTEN CISNEROS Location:[facility] Appointment Type:PC OV Future Scheduled Tests Radiology* CT Head or Brain w/o Contrast 07/28/24 * CT Spine Cervical w/o Contrast 07/28/24 [facility] Evqohation note* Diagnosis Threatened miscarriage in early - Primary Threatened , unspecified as to episode of care documented in this encounter [facility] Work Phone: Evaluation note* Diagnosis Onset Date Resolution Status Acute lumbar myofascial strain acute Blunt abdominal trauma acute Cervical strain, acute acute Chest wall contusion acute Concussion without loss of consciousness acute Lumbar radiculopathy, acute acute [facility] Work Phone: Evaluation note* Diagnosis Encounter for supervision of normal first in first trimester- Primary Supervision of normal first documented in this encounter [facility] note* Diagnosis with uncertain dates in first trimester- Primary documented in this encounter [facility] note* Diagnosis Encounter for supervision of normal first in second trimester- Primary Supervision of normal first Need for influenza vaccination Need for prophylactic vaccination and inoculation against influenza 15 weeks gestation of state, incidental [facility] Narrative No data available for this section [facility] Hospital Discharge instructions Additional Instructions Follow-up with your FORENSIC PSYCHOLOGIST. Return if you have worsening symptoms or worsening abdominal pain/fever.[facility] Work Phone: Hospital Discharge instructions No data available for this section [facility] Progress note No data available for this section [facility] Reason for referral (narrative)* Diagnostic Procedure Only (Routine) - Pending Review Specialty Diagnoses / Procedures Referred By Contac t Referred To Contact [facility] Diagnoses Encounter for supervision of normal first in first trimester Procedures NUCHAL TRANSLUCENCY WHI US NUCHAL TRANSLUCENCY 1ST GESTATION Braulio Hollingsworth MD [address] [facility] [address] [place] [address] [facility] [address] [place] [address] Referral ID Status Reason Start Date Expiration Date Visits Requested Visits Authorized [id number] Pending Review Auto-Generat ed Referral 08/19/2022 08/19/[address] [facility] Diagnostic Procedure Only (Routine) - Authorized Specialty Diagnoses / Procedures Referred By Contac t Referred To Contact [facility] Diagnoses Encounter for supervision of normal first in second trimester Procedures OBSTETRIC ULTRASOUND WHI US PREG UTERUS AFTER 1ST TRIMEST GESTATION Gretel Quintana MD [address] [address] [facility] [address] [place] [address] Referral ID Status Reason Start Date Expiration Date Visits Requested Visits Authorized [id number] Authorized Auto-Generat ed Referral 10/14/2022 10/14/[address] [facility] Summary Purpose Family History No Family [...] Will No August 09 2:12pm Power of Conveyor Belt Installer No August 09, 2022 2:12pm Advance Directive Response Recorded Date/ Time Advance Directives No June 7:50am Living Will No August 09 1:12pm Power of Conveyor Belt Installer No August 09, 2022 1:12pm Chief Complaint [...] section and content) DATE CREATED AUTHOR 09/19/2018 [facility] DATE CREATED AUTHOR AUTHOR'S ORGANIZ ATION 12/26/[address] [facility] [place] [place] [facility] DATE CREATED AUTHOR AUTHOR'S ORGANIZ ATION 04/29/2019 [facility] DATE CREATED AUTHOR AUTHOR'S ORGANIZ ATION 12/25/2019 [facility] DATE CREATED AUTHOR AUTHOR'S ORGANIZ ATION 03/17/2021 [facility] DATE CREATED AUTHOR AUTHOR'S ORGANIZ ATION 08/29/2021 [facility] DATE CREATED AUTHOR AUTHOR'S ORGANIZ ATION 08/05/2022 [facility] DATE CREATED AUTHOR AUTHOR'S ORGANIZ ATION 11/13/2022 [facility] DATE CREATED AUTHOR AUTHOR'S ORGANIZ ATION 11/14/2022 [facility] DATE CREATED AUTHOR AUTHOR'S ORGANIZ ATION 02/20/2024 [facility] ([place] DATE CREATED AUTHOR AUTHOR'S ORGANIZ ATION 08/20/2024 [facility] DATE CREATED AUTHOR AUTHOR'S ORGANIZ ATION 06/27/2025 [facility] DATE CREATED AUTHOR AUTHOR'S ORGANIZ ATION 08/23/2025 [facility] Source Comments (unrecognize d section and content) In the event this informatio n is protected by the Federal Confidentiality of Alcohol and Drug Abuse Patient Records regulations: The Federal rules restrict any use of the information to criminally investigate or prosecute any alcohol or drug abuse patient.[facility] the event this information is protected by the Federal Confidentiality of Alcohol and Drug Abuse Patient Records regulations: The Federal rules restrict any use of the information to criminally investigate or prosecute any alcohol or drug abuse patient.[facility] the event this information is protected by the Federal Confidentiality of Alcohol and Drug Abuse Patient Records regulations: The Federal rules restrict any use of the information to criminally investigate or prosecute any alcohol or drug abuse patient.[facility] the event this information is protected by the Federal Confidentiality of Alcohol and Drug Abuse Patient Records regulations: The Federal rules restrict any use of the information to criminally investigate or prosecute any alcohol or drug abuse patient.[facility] the event this information is protected by the Federal Confidentiality of Alcohol and Drug Abuse Patient Records regulations: The Federal rules restrict any use of the information to criminally investigate or prosecute any alcohol or drug abuse patient.[facility] Center[facility] the event this information is protected by the Federal Confidentiality of Alcohol and Drug Abuse Patient Records regulations: The Federal rules restrict any use of the information to criminally investigate or prosecute any alcohol or drug abuse patient.[facility] Center[facility] the event this information is protected by the Federal Confidentiality of Alcohol and Drug Abuse Patient Records regulations: The Federal rules restrict any use of the information to criminally investigate or prosecute any alcohol or drug abuse patient.[facility] Reason for Visit (unrecogniz ed [...] Member Role: Primary Care Physician Address: Address: [address] [place] [phone] [place] Care Team Related Persons Name: RASHMI MTZ Address: Home [address] [place] [phone] [place] Name: MARGARITO MTZ Address: Home [address] [place] [phone] [place] Name: MARGARITO MTZ Address: [address] [place], [place] [id number] [place] Name: MARGARITO MTZ Address: [address] [place], [place] [phone] [place] Name: MARGARITO MTZ Address: Home [address] [place] [phone] [place] Name: MARGARITO MTZ Address: Home [address] [place] [phone] [place] Name: MARGARITO MTZ Address: Home [address] [place] [phone] [place] Name: MARGARITO MTZ Address: Home [address] [place] [phone] [place] Name: MARGARITO MTZ Address: Home [address] [place] [phone] [place] Care Team Personnel Name: MAXWELL GOMEZ MD Member Role: Primary Care Physician Address: Address: [address] [place], [place] [phone] Care Team Related Persons Name: RASHMI MTZ Address: Home [address] [place] [phone] [place] Name: MARGARITO MTZ Address: [address] [place], [place] [phone] [place] Name: MARGARITO MTZ Address: [address] [place], [place] [phone] [place] Name: MARGARITO MTZ Address: Home [address] [place] [phone] [place] Name: MARGARITO MTZ Address: Home [address] [place] [phone] [place] Name: MARGARITO MTZ Address: Home [address] [place] [phone] [place] Name: MARGARITO MTZ Address: [address] [place], [place] [phone] [place] Name: MARGARITO MTZ Address: Home [address] [place] [phone] [place] Name: MARGARITO MTZ Address: Home [address] [place] [phone] Patient Care team informatio n (unrecognized section and content) Care Team Personnel Name: MAXWELL GOMEZ MD Member Role: Primary Care Physician Address: Address: [address] [place] [phone] [place] Care Team Related Persons Name: RASHMI MTZ Address: [address] [phone] [place] Name: MARGARITO MTZ Address: [address] [place], [place] [phone] [place] Name: MARGARITO MTZ Address: Home [address] [place] [phone] [place] Name: MARGARITO MTZ Address: Home [address] [place] [phone] [place] Name: MARGARITO MTZ Address: Home [address] [place] [phone] [place] Name: BIBI, MARGARITO Address: [address] [place], [place] [phone] [place] Name: MARGARITO MTZ Address: [address] [place], [place] [phone] [place] Name: MARGARITO MTZ Address: [address] [place], [place] [phone] [place] Name: MARGARITO MTZ Address: [address] [place], [place] [phone] [place] Care Team Personnel Name: MAXWELL GOMEZ MD Member Role: Primary Care Physician Address: Address: [address] [place] [phone] [place] Care Team Related Persons Name: RASHMI MTZ Address: Home [address] [phone] [place] Name: MARGARITO MTZ Address: [address] [place], [place] [phone] [place] Name: MARGARITO MTZ Address: [address] [place], [place] [id number] [place] Name: MARGARITO MTZ Address: [address] [place], [place] [phone] [place] Name: MARGARITO MTZ Address: [address] [place], [place] [phone] [place] Name: MARGARITO MTZ Address: [address] [place], [place] [phone] [place] Name: MARGARITO MTZ Address: [address] [place], [place] [phone] [place] Name: MARGARITO MTZ Address: [address] [place], [place] [phone] [place] Name: MARGARITO MTZ Address: [address] [place], [place] [phone] [place] Care Team Personnel Name: SUNIL GRAHAM MD Position: P4 FORENSIC PSYCHOLOGIST Provider Member Role: Primary Care Physician Address: Address: [address] [place] [address]'s [facility] Services [place], [place] [id number] Care Team Related Persons Name: RASHMI MTZ Address: Home [address] [phone] [place] Name: MARGARITO MTZ Address: [address] [place], [place] [phone] [place] Name: MARGARITO MTZ Address: [address] [place], [place] [phone] [place] Name: MARGARITO MTZ Address: [address] [place], [place] [phone] [place] Name: ELVIA MTZRI Address: [address] [place], [place] [phone] [place] Name: ELVIA MTZRI Address: [address] [place], [place] [phone] [place] Name: ELVIA MTZRI Address: [address] [place], [place] [phone] [place] Name: ELVIA MTZRI Address: [address] [place], [place] [phone] [place] Name: ELVIA MTZRI Address: [address] [place], [place] [phone] [place] Care Team Personnel Name: SUNIL GRAHAM MD Position: P4 FORENSIC PSYCHOLOGIST Provider Member Role: Primary Care Physician Address: Address: [address] [place] [phone] Care Team Related Persons Name: RASHMI MTZ Address: Home [address] [phone] [place] Name: MARGARITO MTZ Address: [address] [place], [place] [phone] [place] Name: ELVIA MTZRI Address: [address] [place], [place] [phone] [place] Name: ELVIA MTZRI Address: [address] [place], [place] [phone] [place] Name: ELVIA MTZRI Address: [address] [place], [place] [phone] [place] Name: MARGARITO MTZ Address: [address] [place], [place] [phone] [place] Name: MARGARITO MTZ Address: [address] [place], [place] [phone] [place] Name: ELVIA MTZRI Address: [address] [place], [place] [phone] [place] Name: ELVIA MTZRI Address: [address] [place], [place] [phone] [place] Care Team Personnel Name: MARTINEZ NÚÑEZ MD Position: P4 FORENSIC PSYCHOLOGIST Provider Member Role: Primary Care Physician Address: Address: [address] [place] [id number] Care Team Related Persons Name: RASHMI MTZ Address: Home [address] [phone] [place] Name: MARGARITO MTZ Address: [address] [place], [place] [phone] [place] Name: MARGARITO MTZ Address: [address] [place], [place] [phone] [place] Name: MARGARITO MTZ Address: [address] [place], [place] [phone] [place] Name: MARGARITO MTZ Address: [address] [place], [place] [phone] [place] Name: MARGARITO MTZ Address: [address] [place], [place] [phone] [place] Name: MARGARITO MTZ Address: [address] [place], [place] [phone] [place] Name: MARGARITO MTZ Address: Home [address] [place] [phone] [place] Name: MARGARITO MTZ Address: [address] [place], [place] [phone] Care Team Personnel Name: MARTINEZ NÚÑEZ MD Position: P4 FORENSIC PSYCHOLOGIST Provider Member Role: Primary Care Physician Address: Address: [address] [place] [id number] Care Team Related Persons Name: RASHMI MTZ Address: Home [address] [phone] [place] Name: MARGARITO MTZ Address: [address] [place], [place] [phone] [place] Name: MARGARITO MTZ Address: [address] [place], [place] [phone] [place] Name: MARGARITO MTZ Address: [address] [place], [place] [phone] [place] Name: MARGARITO MTZ Address: [address] [place], [place] [phone] [place] Name: MARGARITO MTZ Address: [address] [place], [place] [phone] [place] Name: MARGARITO MTZ Address: [address] [place], [place] [phone] [place] Name: MARGARITO MTZ Address: [address] [place], [place] [phone] [place] Name: MARGARITO MTZ Address: [address] [place], [place] [phone] [place] Care Team Personnel Name: MARTINEZ NÚÑEZ MD Position: P4 FORENSIC PSYCHOLOGIST Provider Member Role: Primary Care Physician Address: Address: [address] [place] [id number] Care Team Related Persons Name: RASHMI MTZ Address: Home [address] [phone] [place] Name: MARGARITO MTZ Address: [address] [place], [place] [phone] [place] Name: MARGARITO MTZ Address: [address] [place], [place] [phone] [place] Name: MARGARITO MTZ Address: [address] [place], [place] [phone] [place] Name: MARGARITO MTZ Address: [address] [place], [place] [phone] [place] Name: MARGARITO MTZ Address: [address] [place], [place] [phone] [place] Name: MARGARITO MTZ Address: [address] [place], [place] [phone] [place] Name: MARGARITO MTZ Address: [address] [place], [place] [phone] [place] Name: MARGARITO MTZ Address: [address] [place], [place] [phone] [place] Care Team Personnel Name: MARTINEZ NÚÑEZ MD Position: P4 FORENSIC PSYCHOLOGIST Provider Member Role: Primary Care Physician Address: Address: [address] [place] [phone] Care Team Related Persons Name: RASHMI MTZ Address: Home [address] [phone] [place] Name: MARGARITO MTZ Address: [address] [place], [place] [phone] [place] Name: MARGARITO MTZ Address: [address] [place], [place] [phone] [place] Name: MARGARITO MTZ Address: [address] [place], [place] [phone] [place] Name: MARGARITO MTZ Address: [address] [place], [place] [phone] [place] Name: MARGARITO MTZ Address: [address] [place], [place] [phone] [place] Name: MARGARITO MTZ Address: [address] [place], [place] [id number] [place] Name: MARGARITO MTZ Address: [address] [place], [place] [phone] [place] Name: MARGARITO MTZ Address: [address] [place], [place] [phone] [place] Care Team Personnel Name: MARTINEZ NÚÑEZ MD Position: P4 FORENSIC PSYCHOLOGIST Provider Member Role: Primary Care Physician Address: Address: [address] [place] [phone] [place] [address] Care Team Related Persons Name: RASHMI MTZ Address: Home [address] [phone] [place] Name: MARGARITO MTZ Address: [address] [place], [place] [phone] [place] Name: MARGARITO MTZ Address: [address] [place], [place] [phone] [place] Name: MARGARITO MTZ Address: [address] [place], [place] [phone] [place] Name: MARGARITO MTZ Address: [address] [place], [place] [phone] [place] Name: MARGARITO MTZ Address: [address] [place], [place] [phone] [place] Name: MARGARITO MTZ Address: [address] [place], [place] [phone] [place] Name: MARGARITO MTZ Address: [address] [place], [place] [phone] [place] Name: MARGARITO MTZ Address: [address] [place], [place] [phone] [place] Care Team Personnel Name: MARTINEZ NÚÑEZ MD Position: P4 FORENSIC PSYCHOLOGIST Provider Member Role: Primary Care Physician Address: Address: [address] [place] [id number] Care Team Related Persons Name: AMANDA OLIVEIRA Address: Home [address] [place] [phone] [place] Address: Temporary [address] [place], [place] [id number] Name: RASHMI MTZ Address: Home [address] [phone] [place] Name: MARGARITO MTZ Address: [address] [place], [place] [phone] [place] Name: MARGARITO MTZ Address: [address] [place], [place] [phone] [place] Name: MARGARITO MTZ Address: [address] [place], [place] [phone] [place] Name: MARGARITO MTZ Address: [address] [place], [place] [phone] [place] Name: MARGARITO MTZ Address: [address] [place], [place] [phone] [place] Name: MARGARITO MTZ Address: [address] [place], [place] [phone] [place] Name: MARGARITO MTZ Address: [address] [place], [place] [phone] [place] Name: MARGARITO MTZ Address: [address] [place], [place] [phone] [place] Care Team Personnel Name: MARTINEZ NÑÚEZ MD Position: P4 FORENSIC PSYCHOLOGIST Provider Member Role: Primary Care Physician Address: Address: [address] [place] [address] [place], [place] [phone] Care Team Related Persons Name: LUIS DANIEL OLIVEIRA Address: Home [address] [place], [place] [phone] Address: Temporary [address] [place], [place] [phone] Care Team Personnel Name: KIRSTEN CISNEROSNUMERICAL CONTROL ROUTER OPERATOR Position: P4 Advanced Oil Gauger Member Role: Primary Care Physician Address: Address: [address] [place] [address] Care Team Related Persons Name: LUIS DANIEL OLIVEIRA Address: Home [address] [place], [place] [phone] Address: Temporary [address] [place], [place] [phone] Care Team Personnel Name: KIRSTEN CISNEROS APRN-NUMERICAL CONTROL ROUTER OPERATOR Position: P4 Advanced Oil Gauger Member Role: Primary Care Physician Address: Address: [address] [place] [address]- Care Team Related Persons Name: LUIS DANIEL OLIVEIRA Address: Home [address] [place], [place] [phone] Address: Temporary [address] [place], [place] [phone] FOR RECORDS PERTAINING TO PATIENTS WHO ARE [...] BE BASED ON THE PRIMARY CLINICAL RECORDS. [employer] provides no warranty or guarantee of the accuracy or completeness of information in this document.
[2025-10-05 13:32] LABS: Hematocrit 34.1 % (37-47); Hemoglobin 12.0 g/dL (12.0-15.0); Immature Granulocytes Count 0.070 X10^3/uL (0.0-0.0); Mean Corp Hgb Conc 35.2 g/dL (32-36); Mean Corpuscular Volume 91.4 fL (81-99); Mean Platelet Vol. 10.6 fl (6.2-12.0); NRBC Flagged by Analyzer 0 % (0-5); Platelet Count 162 K/mm3 (150-450); RBC Distribution Width CV 14.0 % (11.6-14.6); RBC Distribution Width SD 47.1 fl (35.1-43.9); Red Blood Count 3.73 M/mm3 (4.2-5.4); White Blood Count 6.6 K/mm3 (4.4-11.0)
[2025-10-05 13:49] LABS: AST(SGOT) 42 U/L (<=31); Alanine Aminotransfer ALT/SGPT 31 U/L (<=34); Albumin, Serum 3.5 g/dL (3.5-5.0); Alkaline Phosphatase 106 U/L (35-104); Anion Gap 13 (7-18); BUN 7 mg/dL (4-19); BUN/Creat Ratio 11.7 RATIO (10-20); Calcium,Total 8.6 mg/dL (7.6-11.0); Carbon Dioxide 18.1 mmol/L (20.0-29.0); Chloride 105 mmol/L (96-106); Globulin 2.8 g/dL (2.2-4.2); Glucose 131 mg/dL (70-99); Potassium 3.9 mmol/L (3.5-5.1)
[2025-10-05 13:53] LABS: Creatinine, Urine (random) 205.00 mg/dL (28.00-217.00); Protein, Urine (Random) 41.9 mg/dL (0.0-12.0); Protein:Creat Ratio 204 mg/g CRE (0-200)
== END | disposition home or self-care (01) ==
PROVIDERS: Referring Provider Nurse Practitioner Women's Health; Visit Provider Nurse Practitioner Women's Health
DX: R80.9 Proteinuria, unspecified (principal)
CPT/HCPCS: 36415; 80053; 82570; 84156; 85025; 87086; 87088

== ENCOUNTER 2025-10-06 16:40 | Outpatient (CLI) | payer BC, SELFPAY ==
[2025-10-06 16:52] VITALS: BMI 36.4
--- OUTSIDE RECORDS SUMMARY | 2025-10-06 16:55 | XMS RPT_ITS | CCD ---
Author Organization [facility] Care Team Providers Care Wire Stockkeeper Name Role Phone Lynsey [phone], Alex [phone] C onsulting Unavailable KWON DO, KAY K [...] MARTINEZ NÚÑEZ MD Primary Care Physician MAST PRINT DEVELOPER-PHARMACY INNOVATION ASSISTANT, KIRSTEN Primary Care Physician WILTON AN, MARTINEZ Bautista Primary Care Unavailable LIVIER AN, SUNIL Admitting Unavailable JAYLA AN, LONG Attending Unavailable WILTON AN, MARTINEZ Bautista Attending Unavailable WILTON AN, MARTINEZ Bautista Primary Care Unavailable WILTON AN, MARTINEZ Bautista Attending Unavailable WILTON AN, MARTINEZ Bautista Primary Care Unavailable WILTON AN, MARTINEZ Bautista Attending Unavailable WILTON AN, MARTINEZ Bautista Primary Care [facility]SM[facility] Attending Unavailhieu NÚÑEZ MD, MARTINEZ Bautista Primary Care Unavailable MAST PRINT DEVELOPER-PHARMACY INNOVATION ASSISTANT, KIRSTEN Attending Unavailabl e MAST PRINT DEVELOPER-PHARMACY INNOVATION ASSISTANT, KIRSTEN Primary Care Unavailabl e LIVIER AN, SUNIL Attending Unavailable WILTON AN, MARTINEZ Bautista Primary Care Unavailable JAYLA AN, LONG Attending Unavailable WILTON AN, MARTINEZ Bautista Primary Care Unavailable JAYLA AN, LONG Attending Unavailable WILTON AN, MARTINEZ Bautista Primary Care Unavailable MAST PRINT DEVELOPER-PHARMACY INNOVATION ASSISTANT, KIRSTEN Attending Unavailabl e MAST PRINT DEVELOPER-PHARMACY INNOVATION ASSISTANT, KIRSTEN Primary Care Unavailabl e RAMA [...] Mcdonough Referring Unavailable Damari Mcdonough Attending Unavailable [place] ACCOUNT EXECUTIVE SOFTWARE SALES, Reemdios Attending Unavailable [place] ACCOUNT EXECUTIVE SOFTWARE SALES, Remedios Referring Unavailable Care Physician, No Primary Primary Care Unava ilable Care Physician, No Primary Primary Care Unava ilable [place] ACCOUNT EXECUTIVE SOFTWARE SALES, Remedios Referring Unavailable Jose ACCOUNT EXECUTIVE SOFTWARE SALES, Remedios Attending Unavailable Care Physician, No Primary [...] No Primary Primary Care Unava ilable Jose ACCOUNT EXECUTIVE SOFTWARE SALES, Remedios Attending Unavailable Care Physician, No Primary Primary Care Unava ilable Care Physician, No Primary Referring Unava ilable Care Physician, No Primary Primary Care Unava ilable Care Physician, No Primary Referring Unava ilable [place] ACCOUNT EXECUTIVE SOFTWARE SALES, Remedios Attending Unavailable Care Physician, No Primary Primary Care Unava ilable Care Physician, No Primary Referring Unava ilable Damari Mcdonough Attending Unavailable Rama Stuart Referring Unavailabl e Rama Stuart Attending Unavailabl e Care Physician, No Primary Primary Care Unava ilable Antonio, Keven Consulting Unavailable [place] ACCOUNT EXECUTIVE SOFTWARE SALES, Remedios Attending Unavailable Care Physician, No Primary Primary Care Unava ilable Care Physician, No Primary Primary Care Unava ilable Jose ACCOUNT EXECUTIVE SOFTWARE SALES, Remedios Referring Unavailable [place] ACCOUNT EXECUTIVE SOFTWARE SALES, Remedios Attending Unavailable Care Physician, No Primary Referring Unava ilable Rama Stuart Attending Unavailabl e Care Physician, No Primary Primary Care Unava ilable Care Physician, No Primary Primary Care Unava ilable Care Physician, No Primary Referring Unava ilable Jose ACCOUNT EXECUTIVE SOFTWARE SALES, Remedios Attending Unavailable Care Physician, No Primary [...] Reaction(s) Facility (1 source) Escitalopram Drug Allergy [facility] Repository (11 sources) Citalopram; Translations: [CITALOPRAM HYDROBROMIDE] Drug Allergy 4 Other: See Comments [facility] Work Phone: (11 sources) Escitalopram; Translations: [ESCITALOPRAM] Drug Allergy 1 Other: See Comments [facility] Work Phone: (15 sources) Citalopram; Translations: [citalopram] Drug Allergy Suicidal ideation [facility] (1 source) Citalopram Drug Allergy 5 [facility] Repository (1 source) Escitalopram Drug Allergy 5 [facility] Repository Medications Current Medications Medication Drug Class(es) Dates Sig (Normalized) Sig (Original) acetaminophen 500 mg oral tablet (1 source) Start: 03-31-2023 End: 04-28-2023 Tylenol Extra Strength 500 mg oral tablet Dose : 500 mg = 1 tab(s), Oral, q4h, X 14 day(s), # 30 tab(s), 1 Refill(s), 04/28/23 11:38:00 EDT, Pharmacy: [facility]/pharmacy #[id number], 155, cm, 03/30/23 7:49:00 EDT, Height Start Date: 03/31/23 Stop Date: 04/28/23 Status: Ordered benzocaine 200 mg/ml topical spray (1 source) Standardized Chemical Allergen Start: 03-31-2023 End: 04-14-2023 apply 1 dose topically four times daily Americaine 20% topical spray Dose = 1 herlinda, Topical, QID, X 14 day(s), # 1 EA, 0 Refill(s), Pharmacy: [facility]/pharmacy #[id number], 155, cm, 03/30/23 [...] 0 Refill(s), 02/25/24 8:31:00 AM EDT, Pharmacy: [id number], [...] BID, # 28 tab(s), 0 Refill(s), Pharmacy: [facility] #[id number], [...] tab(s), 0 Refill(s), 04/14/23 11:38:00 EDT, Pharmacy: [facility]/pharmacy #[id number], 155, cm, 03/30/23 7:49:00 EDT, Height Start Date: 03/31/23 Stop Date: 04/14/23 Status: Ordered magnesium oxide 400 mg oral tablet (3 sources) Start: 01-11-2023 End: 02-10-2023 magnesium oxide 400 mg oral tablet Dose : 400 mg = 1 tab(s), Oral, qHS, X 30 day(s), # 30 tab(s), 0 Refill(s), 02/10/23 15:17:00 EDT, Pharmacy: [facility]/pharmacy #[id number], 155, cm, 01/11/23 [...] tylenol, # 12 tab(s), 0 Refill(s), Pharmacy: [facility]/pharmacy #[id number], 155, cm, 01/11/23 [...] Take 1 capsule by mo [facility] daily with breakfast. AD oral tablet (10 sources) Start: 01-26-2023 take 1 tablet by mouth once daily AD oral tablet Dose = 1 tab(s), Oral, Daily, # 30 tab(s), 0 Refill(s) Start Date: 01/26/23 Status: Ordered Lhgaowpd-Icl-Be-Fa () 1 mg Tablet (2 sources) Start: 08-09-2022 take 1 tablet by mouth once daily Tflbbkil-Iiw-Al-Fa () 1 mg Tablet Active 1 TABLET PO DAILY August 08, 2022 11:00pm Start: 08-09-2022 take 1 tablet by brandee th once daily Mjofdiqc-Mna-Rh-Fa () 1 mg Tablet Active 1 TABLET [...] qDay, # 30 tab(s), 11 Refill(s), Pharmacy: [facility]/pharmacy #[id number], Depression, major, recurrent, moderate, 154, cm, 07/20/23 7:49:00 EDT, Height, kg, 07/20/23 7:49:00 EDT, Dosing Weight Start Date: 08/16/23 Stop Date: 08/10/24 Status: Ordered Vitamin B2 100 mg oral tablet (8 sources) Start: 02-04-2023 take 1 tablet by mouth once daily Vitamin B2 100 mg oral tablet 1 tab(s), Oral, qDay, # 30 tab(s), 2 Refill(s), Pharmacy: [facility] STORE [id number], 155, cm, 02/01/23 13:50:00 EDT, Height, kg, 01/26/23 0:59:00 EDT, Dosing Weight Start Date: 02/04/23 Status: Ordered Start: 01-11-2023 Vitamin B2 100 mg oral tablet Dose : 100 mg = 1 tab(s), Oral, Daily, # 30 tab(s), 2 Refill(s), Pharmacy: [facility]/pharmacy #[id number], 155, cm, 01/11/23 [...] (FLONASE) 50 mcg/actuation nasal spray Use 1 [place] in each nostril once daily. 1 Bottle 2 07/10/2014 08/19/2022 Discontinued Comment on above: Use 1 [place] in each nostril once daily. loratadine 10 [...] (3 sources) Congenital vesicoureterorenal reflux; Translations: [Congenital ynxuef-mwnyzog-utptg reflux] Onset: 5 Chronic Genitourinary symptoms and [...] URC Urine Culture Mixed Gram Positive Organisms [place] Count 80,000-100,000 MIXC Mixed contaminants. Submit a new specimen if indicated. Normal [facility] Comment on above: Performed By: #### L 501.2450, L500.3400, L500.2500 #### [facility] Laboratory [address] [place], [address] CBC W/Diff, Automatedon 08-11 Absolute Lymph 1.25 X10 3/uL Normal 0.83-4.51 [facility] Comment on above: Performed By: #### L 509.8002, L501.0250, L100.0100, L3890.6006 ####[facility] [address] [place], [address] Absolute Neut 7.3 X10 3/uL Normal 2.0-7.7 [facility] Comment on above: Performed By: #### L 509.8002, L501.0250, L100.0100, L3890.6006 ####[facility] [address] [place], [address] Basophils/100 WBC (Bld) 0.1 % Normal 0-1 [facility] Comment on above: Performed By: #### L 509.8002, L501.0250, L100.0100, L3890.6006 ####[facility] [address] [place], [address] Eosinophils/100 WBC (Bld) 0.3 % Normal 0-5 [facility] Comment on above: Performed By: #### L 509.8002, L501.0250, L100.0100, L3890.6006 ####[facility] [address] [place], [address] Erythrocyte distribution width (RBC) [Ratio] 13.7 % Normal 11.6-14.6 [facility] Comment on above: Performed By: #### L 509.8002, L501.0250, L100.0100, L3890.6006 ####[facility] [address] [place], [address] Hematocrit (Bld) [Volume fraction] 33.6 % Low 37-47 [facility] Comment on above: Performed By: #### L 509.8002, L501.0250, L100.0100, L3890.6006 ####[facility] [address] [place], [address] Hemoglobin (Bld) [Mass/Vol] 11.6 g/dL Low 12.0-15.0 [facility] Comment on above: Performed By: #### L 509.8002, L501.0250, L100.0100, L3890.6006 ####[facility] [address] [place], [address] IG% 0.900 Normal 0.0-0.9 [facility] Comment on above: Result Comment: IG% - Immature Granulocytes (promyelocytes, myelocytes and metamyelocytes) > 1% indicates that a LEFT SHIFT is Present. Performed By: #### L 509.8002, L501.0250, L100.0100, L3890.6006 ####[facility] [address] [place], [address] Lymphocytes/100 WBC (Bld) 13.5 % Low 19-41 [facility] Comment on above: Performed By: #### L 509.8002, L501.0250, L100.0100, L3890.6006 ####[facility] [address] [place], [address] MCH (RBC) [Entitic mass] 32.5 pg High 27.0-32.0 [facility] Comment on above: Performed By: #### L 509.8002, L501.0250, L100.0100, L3890.6006 ####[facility] [address] [place], [address] MCHC (RBC) [Mass/Vol] 34.5 g/dL Normal 32-36 [facility] Comment on above: Performed By: #### L 509.8002, L501.0250, L100.0100, L3890.6006 ####[facility] [address] [place], [address] MCV (RBC) [Entitic vol] 94.1 fL Normal 81-99 [facility] Comment on above: Performed By: #### L 509.8002, L501.0250, L100.0100, L3890.6006 ####[facility] [address] [place], [address] Monocytes/100 WBC (Bld) 6.7 % Normal 0-10 [facility] Comment on above: Performed By: #### L 509.8002, L501.0250, L100.0100, L3890.6006 ####[facility] [address] [place], [address] Neutrophils/100 WBC (Bld) 78.5 % High 47-70 [facility] Comment on above: Performed By: #### L 509.8002, L501.0250, L100.0100, L3890.6006 ####[facility] [address] [place], [address] Nucleated RBC (Bld) [#/Vol] 0 10*3/uL Normal 0-5 [facility] Comment on above: Performed By: #### L 509.8002, L501.0250, L100.0100, L3890.6006 ####[facility] [address] [place], [address] Platelet mean volume (Bld) [Entitic vol] 9.9 fL Normal 6.2-12.0 [facility] Comment on above: Performed By: #### L 509.8002, L501.0250, L100.0100, L3890.6006 ####[facility] [address] [place], [address] Platelets (Bld) [#/Vol] 184 10*3/uL Normal 150-450 [facility] Comment on above: Performed By: #### L 509.8002, L501.0250, L100.0100, L3890.6006 ####[facility] [address] [place], [address] RBC (Bld) [#/Vol] 3.57 10*6/uL Low 4.2-5.4 [facility] Comment on above: Performed By: #### L 509.8002, L501.0250, L100.0100, L3890.6006 ####[facility] [address] [place], [address] RDW SD 46.3 fl High 35.1-43.9 [facility] Comment on above: Performed By: #### L 509.8002, L501.0250, L100.0100, L3890.6006 ####[facility] [address] [place], [address] WBC (Bld) [#/Vol] 9.3 10*3/uL Normal 4.4-11.0 [facility] Comment on above: Performed By: #### L 509.8002, L501.0250, L100.0100, L3890.6006 ####[facility] [address] [place], [address] Comprehensive Metabolic Prof tnon 08-21-2025 Albumin [Mass/Vol] 3.8 g/dL Normal 3.5-5.0 [facility] Comment on above: Performed By: #### L 501.2450, L500.3400, L500.2500 #### [facility] Laboratory [address] [place], [address] Albumin/Globulin [Mass ratio] 1.5 {ratio} Normal 0.9-2.4 [facility] Comment on above: Performed By: #### L 501.2450, L500.3400, L500.2500 #### [facility] [address] [place], [address] ALK PHOS 73 U/L Normal 35-104 [facility] Comment on above: Performed By: #### L 501.2450, L500.3400, L500.2500 #### [facility] [address] [place], [address] ALT [Catalytic activity/Vol] 12 U/L Normal <=34 [facility] Comment on above: Performed By: #### L 501.2450, L500.3400, L500.2500 #### [facility] [address] [place], [address] AST [Catalytic activity/Vol] 19 U/L Normal <=31 [facility] Comment on above: Performed By: #### L 501.2450, L500.3400, L500.2500 #### [facility] [address] [place], [address] Bilirubin [Mass/Vol] 0.27 mg/dL Normal 0.00-1.30 [facility] Comment on above: Performed By: #### L 501.2450, L500.3400, L500.2500 #### [facility] [address] [place], [address] BUN/CRE 14.1 RATIO Normal 10-20 [facility] Comment on above: Performed By: #### L 501.2450, L500.3400, L500.2500 #### [facility] [address] [place], [address] Calcium [Mass/Vol] 9.2 mg/dL Normal 7.6-11.0 [facility] Comment on above: Performed By: #### L 501.2450, L500.3400, L500.2500 #### [facility] [address] [place], [address] Chloride [Moles/Vol] 103 mmol/L Normal 98-108 [facility] Comment on above: Performed By: #### L 501.2450, L500.3400, L500.2500 #### [facility] [address] [place], [address] CO2 [Moles/Vol] 18.2 mmol/L Low 21.0-32.0 [facility] Comment on above: Performed By: #### L 501.2450, L500.3400, L500.2500 #### [facility] [address] [place], [address] Creatinine [Mass/Vol] 0.56 mg/dL Low 0.70-1.20 [facility] Comment on above: Performed By: #### L 501.2450, L500.3400, L500.2500 #### [facility] [address] [place], [address] GAP 14 Normal 5-15 [facility] Comment on above: Performed By: #### L 501.2450, L500.3400, L500.2500 #### [facility] [address] [place], [address] GFR/1.73 sq M.predicted among non-blacks MDRD (S/P/Bld) [Vol rate/Area] 130 mL/min/{1.73_m2} Normal >60 [facility] Comment on above: Result Comment: mL/m in/1.73m2 CKD-EPI Creatinine Equation (2020) Performed By: #### L 501.2450, L500.3400, L500.2500 #### [facility] [address] [place], [address] Globulin (S) [Mass/Vol] 2.6 g/dL Normal 2.2-4.2 [facility] Comment on above: Performed By: #### L 501.2450, L500.3400, L500.2500 #### [facility] [address] [place], [address] Glucose [Mass/Vol] 99 mg/dL Normal 70-99 [facility] Comment on above: Performed By: #### L 501.2450, L500.3400, L500.2500 #### [facility] [address] [place], [address] Potassium [Moles/Vol] 3.3 mmol/L Normal 3.3-5.1 [facility] Comment on above: Performed By: #### L 501.2450, L500.3400, L500.2500 #### [facility] [address] [place], [address] Sodium [Moles/Vol] 135 mmol/L Normal 133-145 [facility] Comment on above: Performed By: #### L 501.2450, L500.3400, L500.2500 #### [facility] [address] [place], [address] T PROT 6.3 g/dL Normal 5.9-8.4 [facility] Comment on above: Performed By: #### L 501.2450, L500.3400, L500.2500 #### [facility] [address] [place], [address] Urea nitrogen [Mass/Vol] 8 mg/dL Normal 4-19 [facility] Comment on above: Performed By: #### L 501.2450, L500.3400, L500.2500 #### [facility] [address] [place], [address] Glucose Challenge Gest 1H 50 franchesca 08-21-2025 GLU GEST 50g 1H 101 mg/dL Normal 70-140 [facility] Comment on above: Performed By: #### L 509.8002, L501.0250, L100.0100, L3890.6006 ####[facility] [address] [place], [address] HIVon 08-21-2025 HIV Non-Reactive Normal Nonreactive [facility] Comment on above: Result Comment: Non- Reactive Reactive Repeatedly reactive samples must be confirmed according to CDC recommended confirmatory algorithms. The subresults for either HIVAG or AHIV can be used as an aid in the selection of the confirmation algorithm for reactive samples. Send out specimens with Reactive results to [facility] for confirmation. Order the HIV antibody detection and differentiation: [id number] Performed By: #### L 509.8002, L501.0250, L100.0100, L3890.6006 ####[facility] [address] [facility] [address] Record Maker Office Visit Reporton 08-21-2025 Record Maker Office Visit Report [facility] [address], [address] [place] [address] OFFICE VISIT Date of Service: 08/21/25 MR#: [id number] Acct: [id number] Name: LUZ OLIVEIRA Rep #: [id number] : 2000 Provider: JARAD moctezuma Age/Sex: 24/F [place] [facility] [place]: Signed Intake Vital Signs 06/06/25 13:39 08/01/25 15:50 08/21/25 13:30 Height 5 ft 1 in 5 ft 1 in 5 ft 1 in Weight: 190 lb 7 oz BMI 35.9 BP 118/75 Intake Visit Reasons: 28wk4d ob/glucose Director [employer] Required: No Is patient in pain?: No Allergies escitalopram (From Lexapro) Adverse Reaction (Severe, Verified 08/21/25 13:48) SUICIDAL citalopram hydrobromide (From Celexa) Adverse Reaction (Verified 08/21/25 13:48) Other Medications ???Medication ???Instructions ???Recorded ???Confirmed ???Type fhzsgjss-hrs-Hp-FA 1 mg 1 tab PO DAILY 08/09/22 [...] hypertension Obesity affecting 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 srsfpq-hkmenex-xmjds reflux Surgical History [place] teeth removed Family History Grandmother Breast cancer Brain cancer Grandfather CVA (cerebral vascular accident) Mother Diabetes Heart failure MRSA carrier History of recurrent miscarriages Father Hypertension Social History adopted: No household members: spouse and children housing: house number of children: 1 current occupation: [employer] current occupational exposures/hazards: No pets [...] 3-4 times per week duration: 15-30 minutes/day k[place]/mormon: Zoroastrianism seatbelt use: always do you feel safe at home: Yes 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 Date Name GA/Weeks Outcome Route Bth Weight Gen Labor Lgth Anesthesia Del Locatn Provider FOB 10/11/18 Chemical 4 spontaneous 03/30/23 Amanda 39 live - full term [facility] 6lbs 1oz [facility]: [facility] Last Updated by: [...] 04/09/25 -???- (more content not included)... Normal [facility] Syphilis Antibodieson 2024 Syphilis Abs Non-Reactive Normal Nonreactive [facility] Comment on above: Performed By: #### L 509.8002, L501.0250, L100.0100, L3890.6006 ####[facility] [address] [facility] [place], [place], [address] OB Limited With Biometricson 08-15-2025 OB Limited With Biometrics [facility] Imaging Services [address] [place], [place] [address] OB Limited With Biometrics MR#: [id number] Acct: [id number] Name: LUZ OLIVEIRA Rep #: [id number] : 2000 F 24 From: Richard Gonzalez PCP: Care Physician,No Primary Status: REG CLI Study: OB Limited With Biometrics Date of Exam: 08/15 Exam# [id number] Ordering Dr: Geraldine Bradford PROCEDURE: OB LIMITED [...] of 27 weeks and 4 days with KIOM of 11/10/2025. Estimated weight of 1027 (19 percentile). US/OB Limited With Biometrics IMPRESSION: FL measurement is 3% and estimated weight is 19% for age. Otherwise unremarkable biometrics. Average gestational age of 27 weeks and 4 days with KIMO of 11/10/2025. Reading Location: [facility] CC: Dr. Geraldine Bradford MD; No Primary Care Physician Product Development Director: Signed Normal [facility] CBC W/Diff, Automatedon 10-2 Absolute Lymph 1.37 X10 3/uL Normal 0.83-4.51 [facility] Comment on above: Performed By: #### L 100.0100, L500.4050 ####[facility] [address] [place], [address] Absolute Neut 7.9 X10 3/uL High 2.0-7.7 [facility] Comment on above: Performed By: #### L 100.0100, L500.4050 ####[facility] [address] [place], [address] Basophils/100 WBC (Bld) 0.1 % Normal 0-1 [facility] Comment on above: Performed By: #### L 100.0100, L500.4050 ####[facility] [address] [place], [address] Eosinophils/100 WBC (Bld) 0.4 % Normal 0-5 [facility] Comment on above: Performed By: #### L 100.0100, L500.4050 ####[facility] [address] [place], [address] Erythrocyte distribution width (RBC) [Ratio] 14.0 % Normal 11.6-14.6 [facility] Comment on above: Performed By: #### L 100.0100, L500.4050 ####[facility] [address] [place], [address] Hematocrit (Bld) [Volume fraction] 34.8 % Low 37-47 [facility] Comment on above: Performed By: #### L 100.0100, L500.4050 ####[facility] [address] [place], [address] Hemoglobin (Bld) [Mass/Vol] 12.1 g/dL Normal 12.0-15.0 [facility] Comment on above: Performed By: #### L 100.0100, L500.4050 ####[facility] [facility] [address] [place], [address] IG% 0.400 Normal 0.0-0.9 [facility] Comment on above: Result Comment: IG% - Immature Granulocytes (promyelocytes, myelocytes and metamyelocytes) > 1% indicates that a LEFT SHIFT is Present. Performed By: #### L 100.0100, L500.4050 ####[facility] [address] [place], [address] Lymphocytes/100 WBC (Bld) 14.0 % Low 19-41 [facility] Comment on above: Performed By: #### L 100.0100, L500.4050 ####[facility] [address] [place], [address] MCH (RBC) [Entitic mass] 32.4 pg High 27.0-32.0 [facility] Comment on above: Performed By: #### L 100.0100, L500.4050 ####[facility] [address] [place], [address] MCHC (RBC) [Mass/Vol] 34.8 g/dL Normal 32-36 [facility] Comment on above: Performed By: #### L 100.0100, L500.4050 ####[facility] [address] [place], [address] MCV (RBC) [Entitic vol] 93.3 fL Normal 81-99 [facility] Comment on above: Performed By: #### L 100.0100, L500.4050 ####[facility] [address] [place], [address] Monocytes/100 WBC (Bld) 5.1 % Normal 0-10 [facility] Comment on above: Performed By: #### L 100.0100, L500.4050 ####[facility] [address] [place], [address] Neutrophils/100 WBC (Bld) 80.0 % High 47-70 [facility] Comment on above: Performed By: #### L 100.0100, L500.4050 ####[facility] [address] [place], [address] Nucleated RBC (Bld) [#/Vol] 0 10*3/uL Normal 0-5 [facility] Comment on above: Performed By: #### L 100.0100, L500.4050 ####[facility] [address] [place], [address] Platelet mean volume (Bld) [Entitic vol] 9.9 fL Normal 6.2-12.0 [facility] Comment on above: Performed By: #### L 100.0100, L500.4050 ####[facility] [address] [place], [address] Platelets (Bld) [#/Vol] 191 10*3/uL Normal 150-450 [facility] Comment on above: Performed By: #### L 100.0100, L500.4050 ####[facility] [address] [place], [address] RBC (Bld) [#/Vol] 3.73 10*6/uL Low 4.2-5.4 [facility] Comment on above: Performed By: #### L 100.0100, L500.4050 ####[facility] [address] [place], [address] RDW SD 47.3 fl High 35.1-43.9 [facility] Comment on above: Performed By: #### L 100.0100, L500.4050 ####[facility] [address] [place], [address] WBC (Bld) [#/Vol] 9.8 10*3/uL Normal 4.4-11.0 [facility] Comment on above: Performed By: #### L 100.0100, L500.4050 ####[facility] [address] [place], [address] Comprehensive Metabolic [facility] 08-01-2025 Albumin [Mass/Vol] 4.1 g/dL Normal 3.5-5.0 [facility] Comment on above: Performed By: #### L 100.0100, L500.4050 ####[facility] [address] [place], [address] Albumin/Globulin [Mass ratio] 1.5 {ratio} Normal 0.9-2.4 [facility] Comment on above: Performed By: #### L 100.0100, L500.4050 ####[place] [facility] [address] [place], [address] ALK PHOS 74 U/L Normal 35-104 [facility] Comment on above: Performed By: #### L 100.0100, L500.4050 ####[facility] [address] [place], [address] ALT [Catalytic activity/Vol] 14 U/L Normal <=34 [facility] Comment on above: Performed By: #### L 100.0100, L500.4050 ####[facility] [address] [place], [address] AST [Catalytic activity/Vol] 18 U/L Normal <=31 [facility] Comment on above: Performed By: #### L 100.0100, L500.4050 ####[facility] [address] [place], [address] Bilirubin [Mass/Vol] 0.33 mg/dL Normal 0.00-1.30 [facility] Comment on above: Performed By: #### L 100.0100, L500.4050 ####[facility] [address] [place], [address] BUN/CRE 9.0 RATIO Low 10-20 [facility] Comment on above: Performed By: #### L 100.0100, L500.4050 ####[facility] [address] [place], [address] Calcium [Mass/Vol] 9.1 mg/dL Normal 7.6-11.0 [facility] Comment on above: Performed By: #### L 100.0100, L500.4050 ####[facility] [address] [place], [address] Chloride [Moles/Vol] 104 mmol/L Normal 98-108 [facility] Comment on above: Performed By: #### L 100.0100, L500.4050 ####[facility] [address] [place], [address] CO2 [Moles/Vol] 22.8 mmol/L Normal 21.0-32.0 [facility] Comment on above: Performed By: #### L 100.0100, L500.4050 ####[facility] [address] [place], [address] Creatinine [Mass/Vol] 0.55 mg/dL Low 0.70-1.20 [facility] Comment on above: Performed By: #### L 100.0100, L500.4050 ####[facility] [address] [place], [address] GAP 13 Normal 5-15 [facility] Comment on above: Performed By: #### L 100.0100, L500.4050 ####[facility] [address] [place], [address] GFR/1.73 sq M.predicted among non-blacks MDRD (S/P/Bld) [Vol rate/Area] 130 mL/min/{1.73_m2} Normal >60 [facility] Comment on above: Result Comment: mL/m in/1.73m2 CKD-EPI Creatinine Equation (2020) Performed By: #### L 100.0100, L500.4050 ####[facility] [address] [place], [address] Globulin (S) [Mass/Vol] 2.7 g/dL Normal 2.2-4.2 [facility] Comment on above: Performed By: #### L 100.0100, L500.4050 ####[facility] [address] [place], [address] Glucose [Mass/Vol] 105 mg/dL High 70-99 [facility] Comment on above: Performed By: #### L 100.0100, L500.4050 ####[facility] [address] [place], [address] Potassium [Moles/Vol] 3.9 mmol/L Normal 3.3-5.1 [facility] Comment on above: Performed By: #### L 100.0100, L500.4050 ####[facility] [address] [place], [address] Sodium [Moles/Vol] 139 mmol/L Normal 133-145 [facility] Comment on above: Performed By: #### L 100.0100, L500.4050 ####[facility] [address] [place], [address] T PROT 6.7 g/dL Normal 5.9-8.4 [facility] Comment on above: Performed By: #### L 100.0100, L500.4050 ####[facility] [address] [place], [address] Urea nitrogen [Mass/Vol] 5 mg/dL Normal 4-19 [facility] Comment on above: Performed By: #### L 100.0100, L500.4050 ####[facility] [address] [place], [address] Record Maker Office Visit Reporton 08-01-2025 Record Maker Office Visit Report [facility] [address], [address] [place] [address] OFFICE VISIT Date of Service: 08/01/25 MR#: [id number] Acct: [id number] Name: LUZ OLIVEIRA Rep #: [id number] : 2000 Provider: Dr. Geraldine storey MD Age/Sex: 24/F [place] [facility]: Signed Intake Vital Signs 05/07/25 14:40 07/30/25 13:43 08/01/25 15:50 Height 5 ft 1 in 5 ft 1 in 5 ft 1 in Weight: 188 lb 4 oz BMI 35.5 BP 129/86 H Temp 98.7 F Intake Visit Reasons: 25wk ob [employer] Required: No Is patient in pain?: Yes (lower back pain, pelvic cramping) Allergies escitalopram (From Lexapro) Adverse Reaction (Severe, Verified 08/01/25 15:52) SUICIDAL citalopram hydrobromide (From Celexa) Adverse Reaction (Verified 08/01/25 15:52) Other Medications ???Medication ???Instructions ???Recorded ???Confirmed ???Type irpxpwte-kzm-Fd-FA 1 mg 1 tab PO DAILY 08/09/22 [...] hypertension Obesity affecting 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 fhiayo-kxnpfxq-qqhda reflux Surgical History Wiseman teeth removed Family History Grandmother Breast cancer Brain cancer Grandfather CVA (cerebral vascular accident) Mother Diabetes Heart failure MRSA carrier History of recurrent miscarriages Father Hypertension Social History adopted: No household members: spouse and children housing: house number of children: 1 current occupation: [employer] current occupational exposures/hazards: No pets [...] 3-4 times per week duration: 15-30 minutes/day kalpana/mormon: Zoroastrianism seatbelt use: always do you feel safe at home: Yes 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 Normal [facility] Urine Cultureon 08-01-2025 URC Mixed Gram Positive Organisms [place] Count 50,000-80,000 MIXC Mixed contaminants. Submit a new specimen if indicated. Normal [facility] Comment on above: Performed By: #### M 100.2200 ####[facility] [address] [facility] [place], [address] (ROM) Rupture Of Membraneson 07-30-2025 ROM Negative Normal Negative [facility] Comment on above: Result Comment: Amni otic fluid not present indicates No Rupture of Membranes at time of specimen collection. Performed By: #### L 205.1000 ####[facility] [address] [facility] [place], [address] OB Triage Physician Noteon [address] [facility] Medical Records Department [address] [place] [address] OB Triage Physician Note 07/30/25 1342 MR#: [id number] Acct: [id number] Name: LUZ OLIVEIRA Rep #: [id number] : 2000 24 From: Lupe Mead CNM PCP: Care Physician,No Primary Status:DEP CLI Y Location: [facility] HPI - General HPI Narrative LUZ OLIVIERA, is a 24 F who presents [ ] Maternal Data Information KIMO Calculator Estimated Delivery Date Method Current WG Current Estimate 11/09/25 LMP (Certain) 25w 3d Other Estimates 11/10/25 Ultrasound #1 25w 2d PFSH PFSH Medical History Fatty liver Renal atrophy, left Elevated liver enzymes Heart palpitations History of gestational hypertension Obesity affecting 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 lxyrvx-peninbh-iocha reflux Home Medications ???Medication ???Instructions ???Recorded ???Last Taken ???Type ccjmxxkc-the-Eg-FA 1 mg 1 tab PO DAILY 08/09/22 [...] of recurrent miscarriages Father Hypertension Surgical History Wiseman teeth removed Social History adopted: No household members: spouse and children housing: house number of children: 1 current occupation: [employer] current occupational exposures/hazards: No pets [...] 3-4 times per week duration: 15-30 minutes/day kalpana/mormon: Zoroastrianism seatbelt use: always do you feel safe at home: Yes 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 Normal [facility] Record Maker Office Visit Reporton 07-30-2025 Record Maker Office Visit Report [facility] [address], [address] [place] [address] OFFICE VISIT Date of Service: 07/30/25 MR#: [id number] Acct: [id number] Name: LUZ OLIVEIRA Rep #: [id number] : 2000 Provider: JELENA Ordonez ams Age/Sex: 24/F [place] [facility] Status: Signed Intake Vital Signs 07/30/25 01:24 07/30/25 13:43 Height 5 ft 1 in 5 ft 1 in Weight: 188 lb 5 oz BMI 35.6 BP 120/82 H Pulse 112 H Pulse Source Monitor Pulse Oximetry (%) 97 Oxygen Delivery Method room air Intake Visit Reasons: OB ER fu per KW Chief Complaint: 25wk OB ER FU [employer] Required: No Is patient in pain?: Yes (Back, Rib Cage) Pain scale (1-10): 7 Allergies escitalopram (From Lexapro) Adverse Reaction (Severe, Verified 07/30/25 13:41) SUICIDAL citalopram hydrobromide (From Celexa) Adverse Reaction (Verified 07/30/25 13:41) Other Medications ???Medication ???Instructions ???Recorded ???Confirmed ???Type mdusjcjz-gak-Ec-FA 1 mg 1 tab PO DAILY 08/09/22 [...] hypertension Obesity affecting 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 ojpuif-luijybj-figxr reflux Surgical History Wiseman teeth removed Family History Grandmother Breast cancer Brain cancer Grandfather CVA (cerebral vascular accident) Mother Diabetes Heart failure MRSA carrier History of recurrent miscarriages Father Hypertension Social History adopted: No household members: spouse and children housing: house number of children: 1 current occupation: [employer] current occupational exposures/hazards: No pets [...] 3-4 times per week duration: 15-30 minutes/day kalpana/mormon: Zoroastrianism seatbelt use: always do you feel safe at home: Yes 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 Normal [facility] 12 Lead EKGon 07-29-[address] [facility] Cardiovascular Services [address] [place] [address] 12 Lead EKG 07/29/252108 MR#: [id number] Acct: [id number] Name: LUZ OLIVEIRA Rep #: [id number] : 2000 From: Keven Alvarez MD Attending Dr: Lupe Mead CNM Status: DEP CLI Ordering Dr: José Manuel Major MD Date: 07/29/25 Location: [facility] Sex: F C Admitted: Test Reason : [...] Abnormal ECG Confirmed by ANTONIO AN, KEVEN ([id number]), field map editor BEAU SHIRLEY ([id number]) on 07/30/2025 10:40:55 AM Referred By: Lupe Mead Confirmed By: KEVEN ALVAREZ MD 07/30/25 1040 Date Keven Alvarez MD CC: CNKailee Mead; Dr. José Manuel Major MD; No Primary Care Physician Signed Normal [facility] Basic Metabolic Profile (BMP )on 07-29-2025 BUN/CRE 11.3 RATIO Normal 07-30 [facility] Comment on above: Performed By: #### L 501.2450, L500.3400, L500.2500 #### [facility] Laboratory [address] [place], [address] Calcium [Mass/Vol] 9.2 mg/dL Normal 7.6-11.0 [facility] Comment on above: Performed By: #### L 501.2450, L500.3400, L500.2500 #### [facility] Laboratory [address] [place], [address] Chloride [Moles/Vol] 103 mmol/L Normal 98-108 [facility] Comment on above: Performed By: #### L 501.2450, L500.3400, L500.2500 #### [facility] [address] [place], [address] CO2 [Moles/Vol] 22.0 mmol/L Normal 21.0-32.0 [facility] Comment on above: Performed By: #### L 501.2450, L500.3400, L500.2500 #### [facility] [address] [place], [address] Creatinine [Mass/Vol] 0.60 mg/dL Low 0.70-1.20 [facility] Comment on above: Performed By: #### L 501.2450, L500.3400, L500.2500 #### [facility] [address] [place], [address] ECRCL 142.90 ml/min Normal 50-250 [facility] Comment on above: Performed By: #### L 501.2450, L500.3400, L500.2500 #### [facility] [address] [place], [address] GAP 13 Normal 5-15 [facility] Comment on above: Performed By: #### L 501.2450, L500.3400, L500.2500 #### [facility] [address] [place], [address] GFR/1.73 sq M.predicted among non-blacks MDRD (S/P/Bld) [Vol rate/Area] 127 mL/min/{1.73_m2} Normal >60 [facility] Comment on above: Result Comment: mL/m in/1.73m2 CKD-EPI Creatinine Equation (2020) Performed By: #### L 501.2450, L500.3400, L500.2500 #### [facility] [address] [place], [address] Glucose [Mass/Vol] 93 mg/dL Normal 70-99 [facility] Comment on above: Performed By: #### L 501.2450, L500.3400, L500.2500 #### [facility] [address] [place], [address] Potassium [Moles/Vol] 3.4 mmol/L Normal 3.3-5.1 [facility] Comment on above: Performed By: #### L 501.2450, L500.3400, L500.2500 #### [facility] [address] [place], [address] Sodium [Moles/Vol] 137 mmol/L Normal 133-145 [facility] Comment on above: Performed By: #### L 501.2450, L500.3400, L500.2500 #### [facility] [address] [place], [address] Urea nitrogen [Mass/Vol] 7 mg/dL Normal 4-19 [facility] Comment on above: Performed By: #### L 501.2450, L500.3400, L500.2500 #### [facility] [address] [place], [address] CBC W/Diff, Automatedon 10-1 Absolute Lymph 1.65 X10 3/uL Normal 0.83-4.51 [facility] Comment on above: Performed By: #### L 501.2450, L500.3400, L500.2500 #### [facility] [address] [place], [address] Absolute Neut 7.6 X10 3/uL Normal 2.0-7.7 [facility] Comment on above: Performed By: #### L 501.2450, L500.3400, L500.2500 #### [facility] [address] [place], [address] Basophils/100 WBC (Bld) 0.1 % Normal 0-1 [facility] Comment on above: Performed By: #### L 501.2450, L500.3400, L500.2500 #### [facility] [address] [place], [address] Eosinophils/100 WBC (Bld) 0.3 % Normal 0-5 [facility] Comment on above: Performed By: #### L 501.2450, L500.3400, L500.2500 #### [facility] [address] [place], [address] Erythrocyte distribution width (RBC) [Ratio] 13.9 % Normal 11.6-14.6 [facility] Comment on above: Performed By: #### L 501.2450, L500.3400, L500.2500 #### [facility] [address] [place], [address] Hematocrit (Bld) [Volume fraction] 32.1 % Low 37-47 [facility] Comment on above: Performed By: #### L 501.2450, L500.3400, L500.2500 #### [facility] [address] [place], [address] Hemoglobin (Bld) [Mass/Vol] 11.4 g/dL Low 12.0-15.0 [facility] Comment on above: Performed By: #### L 501.2450, L500.3400, L500.2500 #### [facility] [address] [place], [address] IG% 0.700 Normal 0.0-0.9 [facility] Comment on above: Result Comment: IG% - Immature Granulocytes (promyelocytes, myelocytes and metamyelocytes) > 1% indicates that a LEFT SHIFT is Present. Performed By: #### L 501.2450, L500.3400, L500.2500 #### [facility] [address] [place], [address] Lymphocytes/100 WBC (Bld) 16.5 % Low 19-41 [facility] Comment on above: Performed By: #### L 501.2450, L500.3400, L500.2500 #### [facility] [address] [place], [address] MCH (RBC) [Entitic mass] 32.6 pg High 27.0-32.0 [facility] Comment on above: Performed By: #### L 501.2450, L500.3400, L500.2500 #### [facility] [address] [place], [address] MCHC (RBC) [Mass/Vol] 35.5 g/dL Normal 32-36 [facility] Comment on above: Performed By: #### L 501.2450, L500.3400, L500.2500 #### [facility] [address] [place], [address] MCV (RBC) [Entitic vol] 91.7 fL Normal 81-99 [facility] Comment on above: Performed By: #### L 501.2450, L500.3400, L500.2500 #### [facility] [address] [place], [address] Monocytes/100 WBC (Bld) 6.3 % Normal 0-10 [facility] Comment on above: Performed By: #### L 501.2450, L500.3400, L500.2500 #### [facility] [address] [place], [address] Neutrophils/100 WBC (Bld) 76.1 % High 47-70 [facility] Comment on above: Performed By: #### L 501.2450, L500.3400, L500.2500 #### [facility] [address] [place], [address] Nucleated RBC (Bld) [#/Vol] 0 10*3/uL Normal 0-5 [facility] Comment on above: Performed By: #### L 501.2450, L500.3400, L500.2500 #### [facility] [address] [place], [address] Platelet mean volume (Bld) [Entitic vol] 10.4 fL Normal 6.2-12.0 [facility] Comment on above: Performed By: #### L 501.2450, L500.3400, L500.2500 #### [facility] [address] [place], [address] Platelets (Bld) [#/Vol] 204 10*3/uL Normal 150-450 [facility] Comment on above: Performed By: #### L 501.2450, L500.3400, L500.2500 #### [facility] [address] [place], [address] RBC (Bld) [#/Vol] 3.50 10*6/uL Low 4.2-5.4 [facility] Comment on above: Performed By: #### L 501.2450, L500.3400, L500.2500 #### [facility] [address] [place], [address] RDW SD 46.3 fl High 35.1-43.9 [facility] Comment on above: Performed By: #### L 501.2450, L500.3400, L500.2500 #### [facility] [address] [place], [address] WBC (Bld) [#/Vol] 10.0 10*3/uL Normal 4.4-11.0 [facility] Comment on above: Performed By: #### L 501.2450, L500.3400, L500.2500 #### [facility] [address] [place], [address] CTA Chest W/WO Contraston CTA Chest W/WO Contrast [facility] Imaging Services [address] [place] [address] CTA Chest W/WO Contrast MR#: [id number] Acct: [id number] Name: LUZ OLIVEIRA Rep #: [id number] : 2000 F 24 From: Johnny Brooks MD PCP: Care Physician,No Primary Status: REG ER Study: CTA Chest W/WO Contrast Date of Exam: 07/29/25 Exam# [id number] Ordering Dr: José Manuel Major MD PROCEDURE: [...] to evaluate for continued stability. Reading Location: [id number] CC: Dr. José Manuel Major MD; No Primary Care Physician Product Development Director: Signed Normal [facility] D-Dimer Quantitative (DVT/PE )on 07-29-2025 D-DIMER QUANT 0.68 FEU/ug/m Invalid Interpretation Code 0.27-0.49 [facility] Comment on above: Result Comment: D-Di rocky ELEVATED (>0.49): Additional studies and clinical assessments are indicated to conclude diagnosis of: Deep Vein Thrombosis (DVT) or Pulmonary Embolism (PE) Performed By: #### L 501.2450, L500.3400, L500.2500 #### [facility] [address] [facility] [place], [address] Emergency Department Summary on 07-29-2025 Emergency Department Summary [facility] Medical Records Department [address] [place] [address] Emergency Department Summary 07/29/25 MR#: [id number] Acct: [id number] Name: LUZ OLIVEIRA Rep #: [id number] : 2000 24 From: José Manuel Major [...] a miscarriage. Currently 25 weeks . Seeing [place] SIGNAL FITTER. 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 exnggu-cfjzcmi-dayco reflux Home Medications ???Medication ???Instructions ???Recorded ???Last Taken ???Type jpeyhzzy-lwr-Cz-FA 1 mg 1 tab PO DAILY 08/09/22 [...] of recurrent miscarriages Father Hypertension Surgical History Wiseman teeth removed Social History adopted: No household members: spouse and children housing: house number of children: 1 current occupation: [employer] current occupational exposures/hazards: No pets [...] 3-4 times per week duration: 15-30 minutes/day kalpana/mormon: Zoroastrianism seatbelt use: always do you feel safe at home: Yes 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 Chandni (more content not included)... Normal [facility] L501.4021on 07-29-2025 Trop T High Sen < 6 Normal <=14 [facility] Comment on above: Performed By: #### L 501.2450, L500.3400, L500.2500 #### [facility] Laboratory [address] [facility] [place], [place], [id number] Lipaseon 07-29-2025 Lipase [Catalytic activity/Vol] 19 U/L Normal 13-75 [facility] Comment on above: Result Comment: Lisa paez note: LIPASE revised reference range effective 23. New Lipase methodology. Expected to produce lower values than the previous assay method. NEW Reference Range: 13 - 75 U/L Performed By: #### L 501.2450, L500.3400, L500.2500 #### [facility] Laboratory [address] [facility] [place], [place], [id number] Liver Profileon 07-29-2025 Albumin [Mass/Vol] 3.7 g/dL Normal 3.5-5.0 [facility] Comment on above: Performed By: #### L 501.2450, L500.3400, L500.2500 #### [facility] Laboratory [address] [place], [address] ALK PHOS 65 U/L Normal 35-104 [facility] Comment on above: Performed By: #### L 501.2450, L500.3400, L500.2500 #### [facility] Laboratory [address] [place], [address] ALT [Catalytic activity/Vol] 12 U/L Normal <=34 [facility] Comment on above: Performed By: #### L 501.2450, L500.3400, L500.2500 #### [facility] Laboratory [address] [place], [address] AST [Catalytic activity/Vol] 17 U/L Normal <=31 [facility] Comment on above: Performed By: #### L 501.2450, L500.3400, L500.2500 #### [facility] Laboratory [address] [place], [address] Bilirubin [Mass/Vol] 0.26 mg/dL Normal 0.00-1.30 [facility] Comment on above: Performed By: #### L 501.2450, L500.3400, L500.2500 #### [facility] Laboratory [address] [place], [address] Bilirubin.direct [Mass/Vol] 0.11 mg/dL Normal 0.00-0.30 [facility] Comment on above: Performed By: #### L 501.2450, L500.3400, L500.2500 #### [facility] Laboratory [address] [place], [address] Globulin (S) [Mass/Vol] 2.6 g/dL Normal 2.2-4.2 [facility] Comment on above: Performed By: #### L 501.2450, L500.3400, L500.2500 #### [facility] Laboratory [address] [place], [address] T PROT 6.3 g/dL Normal 5.9-8.4 [facility] Comment on above: Performed By: #### L 501.2450, L500.3400, L500.2500 #### [facility] Laboratory [address] [place], [address] Troponin T HS 2 HRon 025 Trop T High Sen Normal <=14 [facility] Comment on above: Result Comment: OKAY TO CANCEL PER ZAK RODRIGUEZ Performed By: #### L 501.2450, L500.3400, L500.2500 #### [facility] Laboratory [address] [place], [address] Urinalysis, Completeon 07-29 EPI,SQUAMOUS 0-5 SEEN Normal 5-10 [facility] Comment on above: Order Comment: COLLE CTOR TO SPECIFY Performed By: #### L 501.2450, L500.3400, L500.2500 #### [facility] Laboratory [address] [place], [address] RBC 5-10 SEEN Normal 0-5 [facility] Comment on above: Order Comment: COLLE CTOR TO SPECIFY Performed By: #### L 501.2450, L500.3400, L500.2500 #### [facility] Laboratory [address] [place], [address] BACTERIA 3+ /hpf Normal None Seen [facility] Comment on above: Order Comment: COLLE CTOR TO SPECIFY Performed By: #### L 501.2450, L500.3400, L500.2500 #### [facility] Laboratory [address] [place], [address] Mucus Ql (Urine sed) 0 SEEN Normal [facility] Comment on above: Order Comment: COLLE CTOR TO SPECIFY Performed By: #### L 501.2450, L500.3400, L500.2500 #### [facility] Laboratory [address] [place], [address] WBC 0 SEEN Normal 0-5 [facility] Comment on above: Order Comment: COLLE CTOR TO SPECIFY Performed By: #### L 501.2450, L500.3400, L500.2500 #### [facility] Laboratory [address] [place], [address] CBC W/Diff, Automatedon 06-12 Absolute Lymph 1.09 X10 3/uL Normal 0.83-4.51 [facility] Comment on above: Performed By: #### L 501.2450, L500.3400, L500.2500 #### [facility] Laboratory [address] [place], [address] Absolute Neut 6.9 X10 3/uL Normal 2.0-7.7 [facility] Comment on above: Performed By: #### L 501.2450, L500.3400, L500.2500 #### [facility] Laboratory [address] [place], [address] Basophils/100 WBC (Bld) 0.1 % Normal 0-1 [facility] Comment on above: Performed By: #### L 501.2450, L500.3400, L500.2500 #### [facility] Laboratory [address] [place], [address] Eosinophils/100 WBC (Bld) 0.2 % Normal 0-5 [facility] Comment on above: Performed By: #### L 501.2450, L500.3400, L500.2500 #### [facility] Laboratory [address] [place], [address] Erythrocyte distribution width (RBC) [Ratio] 14.1 % Normal 11.6-14.6 [facility] Comment on above: Performed By: #### L 501.2450, L500.3400, L500.2500 #### [facility] Laboratory [address] [place], [address] Hematocrit (Bld) [Volume fraction] 31.9 % Low 37-47 [facility] Comment on above: Performed By: #### L 501.2450, L500.3400, L500.2500 #### [facility] Laboratory [address] [place], [address] Hemoglobin (Bld) [Mass/Vol] 11.6 g/dL Low 12.0-15.0 [facility] Comment on above: Performed By: #### L 501.2450, L500.3400, L500.2500 #### [facility] Laboratory [address] [place], [address] IG% 0.600 Normal 0.0-0.9 [facility] Comment on above: Result Comment: IG% - Immature Granulocytes (promyelocytes, myelocytes and metamyelocytes) > 1% indicates that a LEFT SHIFT is Present. Performed By: #### L 501.2450, L500.3400, L500.2500 #### [facility] Laboratory [address] [place], [address] Lymphocytes/100 WBC (Bld) 12.8 % Low 19-41 [facility] Comment on above: Performed By: #### L 501.2450, L500.3400, L500.2500 #### [facility] Laboratory [address] [place], [address] MCH (RBC) [Entitic mass] 32.6 pg High 27.0-32.0 [facility] Comment on above: Performed By: #### L 501.2450, L500.3400, L500.2500 #### [facility] Laboratory [address] [place], [address] MCHC (RBC) [Mass/Vol] 36.4 g/dL High 32-36 [facility] Comment on above: Performed By: #### L 501.2450, L500.3400, L500.2500 #### [facility] Laboratory [address] [place], [address] MCV (RBC) [Entitic vol] 89.6 fL Normal 81-99 [facility] Comment on above: Performed By: #### L 501.2450, L500.3400, L500.2500 #### [facility] Laboratory [address] [place], [address] Monocytes/100 WBC (Bld) 4.7 % Normal 0-10 [facility] Comment on above: Performed By: #### L 501.2450, L500.3400, L500.2500 #### [facility] Laboratory [address] [place], [address] Neutrophils/100 WBC (Bld) 81.6 % High 47-70 [facility] Comment on above: Performed By: #### L 501.2450, L500.3400, L500.2500 #### [facility] Laboratory [address] [place], [address] Nucleated RBC (Bld) [#/Vol] 0 10*3/uL Normal 0-5 [facility] Comment on above: Performed By: #### L 501.2450, L500.3400, L500.2500 #### [facility] Laboratory [address] [place], [address] Platelet mean volume (Bld) [Entitic vol] 10.1 fL Normal 6.2-12.0 [facility] Comment on above: Performed By: #### L 501.2450, L500.3400, L500.2500 #### [facility] Laboratory [address] [place], [address] Platelets (Bld) [#/Vol] 180 10*3/uL Normal 150-450 [facility] Comment on above: Performed By: #### L 501.2450, L500.3400, L500.2500 #### [facility] Laboratory [address] [place], [address] RBC (Bld) [#/Vol] 3.56 10*6/uL Low 4.2-5.4 [facility] Comment on above: Performed By: #### L 501.2450, L500.3400, L500.2500 #### [facility] Laboratory [address] [place], [address] RDW SD 45.9 fl High 35.1-43.9 [facility] Comment on above: Performed By: #### L 501.2450, L500.3400, L500.2500 #### [facility] Laboratory [address] [place], [address] WBC (Bld) [#/Vol] 8.5 10*3/uL Normal 4.4-11.0 [facility] Comment on above: Performed By: #### L 501.2450, L500.3400, L500.2500 #### [facility] Laboratory [address] [place], [address] Comprehensive Metabolic Prof [facility] 07-09-2025 Albumin [Mass/Vol] 3.9 g/dL Normal 3.5-5.0 [facility] Comment on above: Performed By: #### L 501.2450, L500.3400, L500.2500 #### [facility] Laboratory [address] [place], [address] Albumin/Globulin [Mass ratio] 1.4 {ratio} Normal 0.9-2.4 [facility] Comment on above: Performed By: #### L 501.2450, L500.3400, L500.2500 #### [facility] Laboratory [address] [place], [address] ALK PHOS 65 U/L Normal 35-104 [facility] Comment on above: Performed By: #### L 501.2450, L500.3400, L500.2500 #### [facility] Laboratory [address] [place], [address] ALT [Catalytic activity/Vol] 20 U/L Normal <=34 [facility] Comment on above: Performed By: #### L 501.2450, L500.3400, L500.2500 #### [facility] Laboratory [address] [place], [address] AST [Catalytic activity/Vol] 23 U/L Normal <=31 [facility] Comment on above: Performed By: #### L 501.2450, L500.3400, L500.2500 #### [facility] Laboratory [address] [place], [address] Bilirubin [Mass/Vol] 0.35 mg/dL Normal 0.00-1.30 [facility] Comment on above: Performed By: #### L 501.2450, L500.3400, L500.2500 #### [facility] Laboratory [address] [place], [address] BUN/CRE 10.5 RATIO Normal 10-20 [facility] Comment on above: Performed By: #### L 501.2450, L500.3400, L500.2500 #### [facility] Laboratory [address] [place], [address] Calcium [Mass/Vol] 9.1 mg/dL Normal 7.6-11.0 [facility] Comment on above: Performed By: #### L 501.2450, L500.3400, L500.2500 #### [facility] Laboratory [address] [place], [address] Chloride [Moles/Vol] 105 mmol/L Normal 98-108 [facility] Comment on above: Performed By: #### L 501.2450, L500.3400, L500.2500 #### [facility] Laboratory [address] [place], [address] CO2 [Moles/Vol] 18.7 mmol/L Low 21.0-32.0 [facility] Comment on above: Performed By: #### L 501.2450, L500.3400, L500.2500 #### [facility] Laboratory [address] [place], [address] Creatinine [Mass/Vol] 0.60 mg/dL Low 0.70-1.20 [facility] Comment on above: Performed By: #### L 501.2450, L500.3400, L500.2500 #### [facility] Laboratory [address] [place], [address] GAP 14 Normal 5-15 [facility] Comment on above: Performed By: #### L 501.2450, L500.3400, L500.2500 #### [facility] Laboratory [address] [place], [address] GFR/1.73 sq M.predicted among non-blacks MDRD (S/P/Bld) [Vol rate/Area] 128 mL/min/{1.73_m2} Normal >60 [facility] Comment on above: Result Comment: mL/m in/1.73m2 CKD-EPI Creatinine Equation (2020) Performed By: #### L 501.2450, L500.3400, L500.2500 #### [facility] Laboratory [address] [place], [address] Globulin (S) [Mass/Vol] 2.8 g/dL Normal 2.2-4.2 [facility] Comment on above: Performed By: #### L 501.2450, L500.3400, L500.2500 #### [facility] Laboratory [address] [place], [address] Glucose [Mass/Vol] 91 mg/dL Normal 70-99 [facility] Comment on above: Performed By: #### L 501.2450, L500.3400, L500.2500 #### [facility] Laboratory [address] [place], [address] Potassium [Moles/Vol] 3.7 mmol/L Normal 3.3-5.1 [facility] Comment on above: Performed By: #### L 501.2450, L500.3400, L500.2500 #### [facility] Laboratory [address] [place], [address] Sodium [Moles/Vol] 137 mmol/L Normal 133-145 [facility] Comment on above: Performed By: #### L 501.2450, L500.3400, L500.2500 #### [facility] Laboratory [address] [place], [address] T PROT 6.7 g/dL Normal 5.9-8.4 [facility] Comment on above: Performed By: #### L 501.2450, L500.3400, L500.2500 #### [facility] Laboratory [address] [place], [address] Urea nitrogen [Mass/Vol] 6 mg/dL Normal 4-19 [facility] Comment on above: Performed By: #### L 501.2450, L500.3400, L500.2500 #### [facility] Laboratory [address] [place], [address] Record Maker Office Visit Reporton 07-09-2025 Record Maker Office Visit Report [facility] [address], [address] [place] [address] OFFICE VISIT Date of Service: 07/09/25 MR#: [id number] Acct: [id number] Name: LUZ OLIVEIRA Rep #: [id number] : 2000 Provider: Dr. Geraldine storey MD Age/Sex: 24/F [place] [facility] [place]: Signed Intake Vital Signs 07/03/25 15:35 07/09/25 09:29 07/09/25 09:30 Height 5 ft 1 in 5 ft 1 in 5 ft 1 in Weight: 185 lb 4 oz 184 lb 4 oz BMI 34.9 34.8 BP 109/74 107/76 Intake Visit Reasons: DISCUSS CONCERNS * OK PER [employer] Required: No Is patient in pain?: No Allergies escitalopram (From Lexapro) Adverse Reaction (Severe, Verified 07/09/25 09:30) SUICIDAL citalopram hydrobromide (From Celexa) Adverse Reaction (Verified 07/09/25 09:30) Other Medications ???Medication ???Instructions ???Recorded ???Confirmed ???Type wcnpcnjd-wjp-Wt-FA 1 mg 1 tab PO DAILY 08/09/22 [...] hypertension Obesity affecting 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 ziaoqa-pzbpftx-aymka reflux Surgical History Wiseman teeth removed Family History Grandmother Breast cancer Brain cancer Grandfather CVA (cerebral vascular accident) Mother Diabetes Heart failure MRSA carrier History of recurrent miscarriages Father Hypertension Social History adopted: No household members: spouse and children housing: house number of children: 1 current occupation: [employer] current occupational exposures/hazards: No pets [...] 3-4 times per week duration: 15-30 minutes/day kalpana/mormon: Zoroastrianism seatbelt use: always do you feel safe at home: Yes 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 Normal [facility] Protein+Creatinine Ratio,Uri neon 07-09-2025 PROT:CRE RATIO 283 mg/g CRE High 0-200 [facility] Comment on above: Performed By: #### L 501.0900 #### [facility] Laboratory [address] [place], [address] Protein (U) [Mass/Vol] 73.9 mg/dL High 0.0-12.0 [facility] Comment on above: Performed By: #### L 501.0900 #### [facility] [address] [place], [address] UR CREAT 261.00 mg/dL High 28.00-217.00 [facility] Comment on above: Performed By: #### L 501.0900 #### [facility] Laboratory [address] [place], [address] Wound Cultureon 07-06-2025 WC Lesion of abdomen Possible skin contamination, further Identification and sensitivity will be performed only by physician's request. Coag Negative Staph Amount Growth 2+ Normal [facility] Comment on above: Performed By: #### L 501.2450, L500.3400, L500.2500 #### [facility] Laboratory [address] [place], [address] Gram Stainon 07-04-2025 GS Lesion of abdomen Gram Stain 1+ White Blood Cells No organisms seen Normal [facility] Comment on above: Performed By: #### L 501.2450, L500.3400, L500.2500 #### [facility] [address] 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 Is patient in pain?: No Allergies escitalopram (From Lexapro) Adverse Reaction (Severe, Verified 07/03/25 15:38) SUICIDAL citalopram hydrobromide (From Celexa) Adverse Reaction (Verified 07/03/25 15:38) Other Medications ???Medication ???Instructions ???Recorded ???Confirmed ???Type wpfkkvft-fyd-Ds-FA 1 mg 1 tab PO DAILY 08/09/22 [...] hypertension Obesity affecting 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 bubfyh-ijextfc-fdswj reflux Surgical History Wiseman teeth removed Family History Grandmother Breast cancer Brain cancer Grandfather CVA (cerebral vascular accident) Mother Diabetes Heart failure MRSA carrier History of recurrent miscarriages Father Hypertension Social History adopted: No household members: spouse and children housing: house number of children: 1 current occupation: [employer] current occupational exposures/hazards: No pets [...] 3-4 times per week duration: 15-30 minutes/day kalpana/mormon: Zoroastrianism seatbelt use: always do you feel safe at home: Yes 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 Date Name GA/Weeks Outcome Route Bth Weight Gen Labor Lgth Anesthesia Del Locatn Provider FOB 10/11/18 Chemical 4 spontaneous 03/30/23 Amanda 39 live - full term vacuum 6lbs 1oz Female epidural [facility] Delivery Date: 03/30/23 Last [...] ??-???- 9w (more content not included)... Normal [facility] Progress Noteon 06-20-2025 [employer] Authentication Interface Message Text [facility] MATERNAL- MEDICINE CONSULT Referring/Requesting Provider: Rama [...] disorder Chronic kidney disease kidney stones Congenital hmvxmn-httwscp-kzpts reflux Depression Elevated liver enzymes Headache in [...] repeat LFTs are elevated, refer to local relations mgr for further evaluation. Frequent UTI 06/20/2025 [...] hemorrhage, stillbirth, anomalies, delivery and postcesarean complications. Baggs of medicine recommend weight gain in : [...] findings. Ame (more content not included)... Normal [facility] Record Maker Office Visit Reporton 06-06-2025 Record Maker Office Visit Report [facility]'s [address], [address] [place] [address] OFFICE VISIT Date of Service: 06/06/25 MR#: [id number] Acct: [id number] Name: LUZ OLIVEIRA Rep #: [id number] : 2000 Provider: Dr. Rama Trammell DO Age/Sex: 24/F [place] [facility] [place]: Signed Intake Vital Signs 04/09/25 10:40 05/30/25 09:28 06/06/25 13:37 06/06/25 13:39 Height 5 ft 1 in 5 ft 1 in 5 ft 1 in 5 ft 1 in Weight: 183 lb 5 oz BMI 34.6 BP 112/68 Intake Visit Reasons: 17 wk ob [employer] Required: No Is patient in pain?: No Allergies escitalopram (From Lexapro) Adverse Reaction (Severe, Verified 06/06/25 13:36) SUICIDAL citalopram hydrobromide (From Celexa) Adverse Reaction (Verified 06/06/25 13:36) Other Medications ???Medication ???Instructions ???Recorded ???Confirmed ???Type hxywpxnx-ihk-Nm-FA 1 mg 1 tab PO DAILY 08/09/22 06/06/25 H istory tablet metoclopramide HCl 5 mg tablet 5 mg PO QACHS #60 tabs 04/19/25 Rx (Reglan) Last Menstrual Period: 02/02/25 Zika: Zika virus screening: Negative : No PFSH PFSH Medical History Fatty liver Renal atrophy, left Elevated liver enzymes Heart palpitations History of gestational hypertension Obesity affecting 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 jkddsf-njqdssg-eacib reflux Surgical History Wiseman teeth removed Family History Grandmother Breast cancer Brain cancer Grandfather CVA (cerebral vascular accident) Mother Diabetes Heart failure MRSA carrier History of recurrent miscarriages Father Hypertension Social History adopted: No household members: spouse and children housing: house number of children: 1 current occupation: [employer] current occupational exposures/hazards: No pets and [...] 3-4 times per week duration: 15-30 minutes/day kalpana/mormon: Zoroastrianism seatbelt use: always do you feel safe at home: Yes 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 Date Name GA/Weeks Outcome Route Bth Weight Gen Labor Lgth Anesthesia Del Locatn Provider FOB 10/11/18 Chemical 4 spontaneous 03/30/23 Amanda 39 live - full term vacuum 6lbs 1oz Female epidural [facility] Delivery Date: 03/30/23 Last [...] ??-???- Negat (more content not included)... Normal [facility] Urine Cultureon 06-02-2025 URC #1,2 Gram positive francheska suggestive of a diphtheroid. Susceptibility not normally performed on this organism Urine Culture Urine Culture Urine Culture Corynebacterium amycolatum [place] Count 11,000-25,000 Corynebacterium minutissimum Corynebacterium minutissimum Normal [facility] Comment on above: Performed By: #### L 501.2450, L500.3400, L500.2500 #### [facility] [address] [place], [address] Cardiology Visit Reporton Cardiology Visit Report [facility] [address] [place], [place] [id number] OFFICE VISIT Date of Service: 05/30/25 MR#: [id number] Acct: [id number] Name: LUZ OLIVEIRA Rep #: [id number] : 2000 Provider: Dr. Keven Alvarez MD Age/Sex: 24/F [place] [facility] [place] Status: Signed HPI HPI History of [...] Source Monitor Intake Visit Reasons: PALP ([place]) [employer] Required: No Accompanied by: Self Is patient in pain?: No Allergies escitalopram (From Lexapro) Adverse Reaction (Severe, Verified 05/30/25 09:34) SUICIDAL citalopram hydrobromide (From Celexa) Adverse Reaction (Verified 05/30/25 09:34) Other Medications ???Medication ???Instructions ???Recorded ???Confirmed ???Type ihpqpjli-tbb-Kg-FA 1 mg 1 tab PO DAILY 08/09/22 05/30/25 H istory tablet metoclopramide HCl 5 mg tablet 5 mg PO QACHS #60 tabs 04/19/25 Rx (Reglan) PFSH Medical History Fatty liver Renal atrophy, left Elevated liver enzymes Heart palpitations History of gestational hypertension Obesity affecting 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 pyakvm-pvebjme-uziir reflux Surgical History Wiseman teeth removed Family History Grandmother Breast cancer Brain cancer Grandfather CVA (cerebral vascular accident) Mother Diabetes Heart failure MRSA carrier History of recurrent miscarriages Father Hypertension Social History adopted: No household members: spouse and children housing: house number of children: 1 current occupation: [employer] current occupational exposures/hazards: No pets [...] 3-4 times per week duration: 15-30 minutes/day kalpana/mormon: Zoroastrianism seatbelt use: always do you feel safe at home: Yes 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 Normal [facility] Comprehensive Metabolic Prof ilon 05-30-2025 Albumin [Mass/Vol] 4.0 g/dL Normal 3.5-5.0 [facility] Comment on above: Performed By: #### L 500.4050 #### [facility] [address] [place], [address] Albumin/Globulin [Mass ratio] 1.5 {ratio} Normal 0.9-2.4 [facility] Comment on above: Performed By: #### L 500.4050 #### [facility] [address] [place], [address] ALK PHOS 56 U/L Normal 35-104 [facility] Comment on above: Performed By: #### L 500.4050 #### [facility] [address] [place], [address] ALT [Catalytic activity/Vol] 35 U/L Normal <=34 [facility] Comment on above: Performed By: #### L 500.4050 #### [facility] [address] [place], [address] AST [Catalytic activity/Vol] 29 U/L Normal <=31 [facility] Comment on above: Performed By: #### L 500.4050 #### [facility] [address] [place], [address] Bilirubin [Mass/Vol] 0.36 mg/dL Normal 0.00-1.30 [facility] Comment on above: Performed By: #### L 500.4050 #### [facility] [address] [place], [address] BUN/CRE 10.5 RATIO Normal 10-20 [facility] Comment on above: Performed By: #### L 500.4050 #### [facility] [address] [place], [address] Calcium [Mass/Vol] 9.3 mg/dL Normal 7.6-11.0 [facility] Comment on above: Performed By: #### L 500.4050 #### [facility] [address] [place], [address] Chloride [Moles/Vol] 104 mmol/L Normal 98-108 [facility] Comment on above: Performed By: #### L 500.4050 #### [facility] [address] [place], [address] CO2 [Moles/Vol] 20.0 mmol/L Low 21.0-32.0 [facility] Comment on above: Performed By: #### L 500.4050 #### [facility] [address] [place], [address] Creatinine [Mass/Vol] 0.57 mg/dL Low 0.70-1.20 [facility] Comment on above: Performed By: #### L 500.4050 #### [facility] [address] [place], [address] GAP 14 Normal 5-15 [facility] Comment on above: Performed By: #### L 500.4050 #### [facility] [address] [place], [address] GFR/1.73 sq M.predicted among non-blacks MDRD (S/P/Bld) [Vol rate/Area] 129 mL/min/{1.73_m2} Normal >60 [facility] Comment on above: Result Comment: mL/m in/1.73m2 CKD-EPI Creatinine Equation (2020) Performed By: #### L 500.4050 #### [facility] [address] [place], [address] Globulin (S) [Mass/Vol] 2.6 g/dL Normal 2.2-4.2 [facility] Comment on above: Performed By: #### L 500.4050 #### [facility] [address] [place], [address] Glucose [Mass/Vol] 92 mg/dL Normal 70-99 [facility] Comment on above: Performed By: #### L 500.4050 #### [facility] [address] [place], [address] Potassium [Moles/Vol] 3.8 mmol/L Normal 3.3-5.1 [facility] Comment on above: Performed By: #### L 500.4050 #### [facility] [address] [place], [address] Sodium [Moles/Vol] 138 mmol/L Normal 133-145 [facility] Comment on above: Performed By: #### L 500.4050 #### [facility] [address] [place], [address] T PROT 6.6 g/dL Normal 5.9-8.4 [facility] Comment on above: Performed By: #### L 500.4050 #### [facility] [address] [place], [address] Urea nitrogen [Mass/Vol] 6 mg/dL Normal 4-19 [facility] Comment on above: Performed By: #### L 500.4050 #### [facility] [address] [place], [address] Thyroid Stim Hormone (TSH)on 05-30-2025 TSH 0.631 uIU/mL Normal 0.300-4.200 [facility] Comment on above: Performed By: #### L 501.2450, L500.3400, L500.2500 #### [facility] [address] [place], [address] CBC W/Diff, Automatedon 08-0 4-2024 Absolute Lymph 1.81 X10 3/uL Normal 0.83-4.51 [facility] Comment on above: Performed By: #### L 501.0900 #### [facility] [address] [place], [address] Absolute Neut 5.3 X10 3/uL Normal 2.0-7.7 [facility] Comment on above: Performed By: #### L 501.0900 #### [facility] [address] [place], [address] Basophils/100 WBC (Bld) 0.1 % Normal 0-1 [facility] Comment on above: Performed By: #### L 501.0900 #### [facility] [address] [place], [address] Eosinophils/100 WBC (Bld) 0.3 % Normal 0-5 [facility] Comment on above: Performed By: #### L 501.0900 #### [facility] [address] [place], [address] Erythrocyte distribution width (RBC) [Ratio] 12.9 % Normal 11.6-14.6 [facility] Comment on above: Performed By: #### L 501.0900 #### [facility] [address] [place], [address] Hematocrit (Bld) [Volume fraction] 36.8 % Low 37-47 [facility] Comment on above: Performed By: #### L 501.0900 #### [facility] [address] [place], [address] Hemoglobin (Bld) [Mass/Vol] 13.0 g/dL Normal 12.0-15.0 [facility] Comment on above: Performed By: #### L 501.0900 #### [facility] [address] [place], [address] IG% 0.400 Normal 0.0-0.9 [facility] Comment on above: Result Comment: IG% - Immature Granulocytes (promyelocytes, myelocytes and metamyelocytes) > 1% indicates that a LEFT SHIFT is Present. Performed By: #### L 501.0900 #### [facility] [address] [place], [address] Lymphocytes/100 WBC (Bld) 23.5 % Normal 19-41 [facility] Comment on above: Performed By: #### L 501.0900 #### [facility] [address] [place], [address] MCH (RBC) [Entitic mass] 31.0 pg Normal 27.0-32.0 [facility] Comment on above: Performed By: #### L 501.0900 #### [facility] [address] [place], [address] MCHC (RBC) [Mass/Vol] 35.3 g/dL Normal 32-36 [facility] Comment on above: Performed By: #### L 501.0900 #### [facility] [address] [place], [address] MCV (RBC) [Entitic vol] 87.6 fL Normal 81-99 [facility] Comment on above: Performed By: #### L 501.0900 #### [facility] [address] [place], [address] Monocytes/100 WBC (Bld) 6.7 % Normal 0-10 [facility] Comment on above: Performed By: #### L 501.0900 #### [facility] [address] [place], [address] Neutrophils/100 WBC (Bld) 69.0 % Normal 47-70 [facility] Comment on above: Performed By: #### L 501.0900 #### [facility] [address] [place], [address] Nucleated RBC (Bld) [#/Vol] 0 10*3/uL Normal 0-5 [facility] Comment on above: Performed By: #### L 501.0900 #### [facility] [address] [place], [address] Platelet mean volume (Bld) [Entitic vol] 10.3 fL Normal 6.2-12.0 [facility] Comment on above: Performed By: #### L 501.0900 #### [facility] [address] [place] [place], [address] Platelets (Bld) [#/Vol] 198 10*3/uL Normal 150-450 [facility] Comment on above: Performed By: #### L 501.0900 #### [facility] [address] [place], [address] RBC (Bld) [#/Vol] 4.20 10*6/uL Normal 4.2-5.4 [facility] Comment on above: Performed By: #### L 501.0900 #### [facility] [address] [place], [address] RDW SD 39.9 fl Normal 35.1-43.9 [facility] Comment on above: Performed By: #### L 501.0900 #### [facility] [address] [place], [address] WBC (Bld) [#/Vol] 7.7 10*3/uL Normal 4.4-11.0 [facility] Comment on above: Performed By: #### L 501.0900 #### [facility] [address] [place], [address] Comprehensive Metabolic Prof ilon 05-14-2025 Albumin [Mass/Vol] 4.2 g/dL Normal 3.5-5.0 [facility] Comment on above: Performed By: #### L 501.0900 #### [facility] [address] [place], [address] Albumin/Globulin [Mass ratio] 1.5 {ratio} Normal 0.9-2.4 [facility] Comment on above: Performed By: #### L 501.0900 #### [facility] [address] [place], [address] ALK PHOS 61 U/L Normal 35-104 [facility] Comment on above: Performed By: #### L 501.0900 #### [facility] [address] [place], [address] ALT [Catalytic activity/Vol] 47 U/L High <=34 [facility] Comment on above: Performed By: #### L 501.0900 #### [facility] [address] [place], [address] AST [Catalytic activity/Vol] 36 U/L High <=31 [facility] Comment on above: Performed By: #### L 501.0900 #### [facility] [address] [place], [address] Bilirubin [Mass/Vol] 0.52 mg/dL Normal 0.00-1.30 [facility] Comment on above: Performed By: #### L 501.0900 #### [facility] [address] [place], [address] BUN/CRE 10.7 RATIO Normal 10-20 [facility] Comment on above: Performed By: #### L 501.0900 #### [facility] [address] [place], [address] Calcium [Mass/Vol] 9.5 mg/dL Normal 7.6-11.0 [facility] Comment on above: Performed By: #### L 501.0900 #### [facility] [address] [place], [address] Chloride [Moles/Vol] 102 mmol/L Normal 98-108 [facility] Comment on above: Performed By: #### L 501.0900 #### [facility] [address] [place], [address] CO2 [Moles/Vol] 18.6 mmol/L Low 21.0-32.0 [facility] Comment on above: Performed By: #### L 501.0900 #### [facility] [address] [place], [address] Creatinine [Mass/Vol] 0.66 mg/dL Low 0.70-1.20 [facility] Comment on above: Performed By: #### L 501.0900 #### [facility] [address] [place], [address] GAP 16 High 5-15 [facility] Comment on above: Performed By: #### L 501.0900 #### [facility] [address] [place], [address] GFR/1.73 sq M.predicted among non-blacks MDRD (S/P/Bld) [Vol rate/Area] 125 mL/min/{1.73_m2} Normal >60 [facility] Comment on above: Result Comment: mL/m in/1.73m2 CKD-EPI Creatinine Equation (2020) Performed By: #### L 501.0900 #### [facility] [address] [place], [address] Globulin (S) [Mass/Vol] 2.8 g/dL Normal 2.2-4.2 [facility] Comment on above: Performed By: #### L 501.0900 #### [facility] [address] [place], [address] Glucose [Mass/Vol] 92 mg/dL Normal 70-99 [facility] Comment on above: Performed By: #### L 501.0900 #### [facility] [address] [place], [address] Potassium [Moles/Vol] 3.8 mmol/L Normal 3.3-5.1 [facility] Comment on above: Performed By: #### L 501.0900 #### [facility] [address] [place], [address] Sodium [Moles/Vol] 137 mmol/L Normal 133-145 [facility] Comment on above: Performed By: #### L 501.0900 #### [facility] [address] [place], [address] T PROT 7.0 g/dL Normal 5.9-8.4 [facility] Comment on above: Performed By: #### L 501.0900 #### [facility] [address] [place], [address] Urea nitrogen [Mass/Vol] 7 mg/dL Normal 4-19 [facility] Comment on above: Performed By: #### L 501.0900 #### [facility] [address] [place], [address] Record Maker Office Visit Reporton 05-14-2025 Record Maker Office Visit Report [facility] [address], [address] [place] [address] OFFICE VISIT Date of Service: 05/14/25 MR#: [id number] Acct: [id number] Name: LUZ OLIVEIRA Rep #: [id number] : 2000 Provider: Dr. Rama Trammell DO Age/Sex: 24/F [place] [facility] [place]: Signed Intake Vital Signs 05/07/25 14:40 05/14/25 14:48 05/14/25 14:48 Height 5 ft 1 in 5 ft 1 in 5 ft 1 in Weight: 185 lb 1 oz BMI 34.9 BP 100/52 L Intake Visit Reasons: 14wk OB, elevated liver enzymes cbc/cmp FU [employer] Required: No Is patient in pain?: No Allergies escitalopram (From Lexapro) Adverse Reaction (Severe, Verified 05/14/25 14:48) SUICIDAL citalopram hydrobromide (From Celexa) Adverse Reaction (Verified 05/14/25 14:48) Other Medications ???Medication ???Instructions ???Recorded ???Confirmed ???Type eloppwwc-jgq-Vi-FA 1 mg 1 tab PO DAILY 08/09/22 05/14/25 H istory tablet metoclopramide HCl 5 mg tablet 5 mg PO QACHS #60 tabs 04/19/25 Rx (Reglan) Last Menstrual Period: 02/02/25 Zika: Zika virus screening: Negative : No PFSH PFSH Medical History Congenital gjujtk-sgkljog-dkmsh reflux Surgical History Wiseman teeth removed Family History Grandmother Breast cancer Brain cancer Grandfather CVA (cerebral vascular accident) Mother Diabetes Heart failure MRSA carrier History of recurrent miscarriages Father Hypertension Social History adopted: No household members: spouse and children housing: house number of children: 1 current occupation: [employer] current occupational exposures/hazards: No pets [...] 3-4 times per week duration: 15-30 minutes/day kalpana/mormon: Zoroastrianism seatbelt use: always do you feel safe at home: Yes 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 (more content not included)... Normal [facility] CBC W/Diff, Automatedon 07-2 Absolute Lymph 1.24 X10 3/uL Normal 0.83-4.51 [facility] Comment on above: Performed By: #### L 509.8002, L501.9985, L500.4050, L3890.6006, BTS, L100.0100, L3890.6301, L509.4006, L3890.6102 #### [facility] [address] [place], [place], [address] Absolute Neut 6.2 X10 3/uL Normal 2.0-7.7 [facility] Comment on above: Performed By: #### L 509.8002, L501.9985, L500.4050, L3890.6006, BTS, L100.0100, L3890.6301, L509.4006, L3890.6102 #### [facility] [address] [place], [address] Basophils/100 WBC (Bld) 0.1 % Normal 0-1 [facility] Comment on above: Performed By: #### L 509.8002, L501.9985, L500.4050, L3890.6006, BTS, L100.0100, L3890.6301, L509.4006, L3890.6102 #### [facility] [address] [place], [address] Eosinophils/100 WBC (Bld) 0.1 % Normal 0-5 [facility] Comment on above: Performed By: #### L 509.8002, L501.9985, L500.4050, L3890.6006, BTS, L100.0100, L3890.6301, L509.4006, L3890.6102 #### [facility] [address] [place], [address] ([address] Erythrocyte distribution width (RBC) [Ratio] 12.5 % Normal 11.6-14.6 [facility] Comment on above: Performed By: #### L 509.8002, L501.9985, L500.4050, L3890.6006, BTS, L100.0100, L3890.6301, L509.4006, L3890.6102 #### [facility] [address] [place], [address] Hematocrit (Bld) [Volume fraction] 36.6 % Low 37-47 [facility] Comment on above: Performed By: #### L 509.8002, L501.9985, L500.4050, L3890.6006, BTS, L100.0100, L3890.6301, L509.4006, L3890.6102 #### [facility] [address] [place], [address] Hemoglobin (Bld) [Mass/Vol] 12.8 g/dL Normal 12.0-15.0 [facility] Comment on above: Performed By: #### L 509.8002, L501.9985, L500.4050, L3890.6006, BTS, L100.0100, L3890.6301, L509.4006, L3890.6102 #### [facility] [address] [place], [address] IG% 0.500 Normal 0.0-0.9 [facility] Comment on above: Result Comment: IG% - Immature Granulocytes (promyelocytes, myelocytes and metamyelocytes) > 1% indicates that a LEFT SHIFT is Present. Performed By: #### L 509.8002, L501.9985, L500.4050, L3890.6006, BTS, L100.0100, L3890.6301, L509.4006, L3890.6102 #### [facility] [address] [place], [address] Lymphocytes/100 WBC (Bld) 15.8 % Low 19-41 [facility] Comment on above: Performed By: #### L 509.8002, L501.9985, L500.4050, L3890.6006, BTS, L100.0100, L3890.6301, L509.4006, L3890.6102 #### [facility] [address] [place], [address] MCH (RBC) [Entitic mass] 30.8 pg Normal 27.0-32.0 [facility] Comment on above: Performed By: #### L 509.8002, L501.9985, L500.4050, L3890.6006, BTS, L100.0100, L3890.6301, L509.4006, L3890.6102 #### [facility] [address] [place], [address] MCHC (RBC) [Mass/Vol] 35.0 g/dL Normal 32-36 [facility] Comment on above: Performed By: #### L 509.8002, L501.9985, L500.4050, L3890.6006, BTS, L100.0100, L3890.6301, L509.4006, L3890.6102 #### [facility] [address] [place], [address] MCV (RBC) [Entitic vol] 88.2 fL Normal 81-99 [facility] Comment on above: Performed By: #### L 509.8002, L501.9985, L500.4050, L3890.6006, BTS, L100.0100, L3890.6301, L509.4006, L3890.6102 #### [facility] [address] [facility] [address] [place], [address] Monocytes/100 WBC (Bld) 5.0 % Normal 0-10 [facility] Comment on above: Performed By: #### L 509.8002, L501.9985, L500.4050, L3890.6006, BTS, L100.0100, L3890.6301, L509.4006, L3890.6102 #### [facility] [address] [facility] [address] [place], [address] Neutrophils/100 WBC (Bld) 78.5 % High 47-70 [facility] Comment on above: Performed By: #### L 509.8002, L501.9985, L500.4050, L3890.6006, BTS, L100.0100, L3890.6301, L509.4006, L3890.6102 #### [facility] [address] [place], [address] Nucleated RBC (Bld) [#/Vol] 0 10*3/uL Normal 0-5 [facility] Comment on above: Performed By: #### L 509.8002, L501.9985, L500.4050, L3890.6006, BTS, L100.0100, L3890.6301, L509.4006, L3890.6102 #### [facility] [address] [place], [address] ( Platelet mean volume (Bld) [Entitic vol] 10.7 fL Normal 6.2-12.0 [facility] Comment on above: Performed By: #### L 509.8002, L501.9985, L500.4050, L3890.6006, BTS, L100.0100, L3890.6301, L509.4006, L3890.6102 #### [facility] [address] [place], [address] ( Platelets (Bld) [#/Vol] 180 10*3/uL Normal 150-450 [facility] Comment on above: Performed By: #### L 509.8002, L501.9985, L500.4050, L3890.6006, BTS, L100.0100, L3890.6301, L509.4006, L3890.6102 #### [facility] [address] [place], [address] (769) RBC (Bld) [#/Vol] 4.15 10*6/uL Low 4.2-5.4 [facility] Comment on above: Performed By: #### L 509.8002, L501.9985, L500.4050, L3890.6006, BTS, L100.0100, L3890.6301, L509.4006, L3890.6102 #### [facility] [address] [place], [address] RDW SD 39.5 fl Normal 35.1-43.9 [facility] Comment on above: Performed By: #### L 509.8002, L501.9985, L500.4050, L3890.6006, BTS, L100.0100, L3890.6301, L509.4006, L3890.6102 #### [facility] [address] [place], [address] WBC (Bld) [#/Vol] 7.8 10*3/uL Normal 4.4-11.0 [facility] Comment on above: Performed By: #### L 509.8002, L501.9985, L500.4050, L3890.6006, BTS, L100.0100, L3890.6301, L509.4006, L3890.6102 #### [facility] [address] [place], [address] Comprehensive Metabolic Prof [facility] 05-07-2025 Albumin [Mass/Vol] 4.2 g/dL Normal 3.5-5.0 [facility] Comment on above: Performed By: #### L 509.8002, L501.9985, L500.4050, L3890.6006, BTS, L100.0100, L3890.6301, L509.4006, L3890.6102 ####[facility] [address] [place], [address] Albumin/Globulin [Mass ratio] 1.6 {ratio} Normal 0.9-2.4 [facility] Comment on above: Performed By: #### L 509.8002, L501.9985, L500.4050, L3890.6006, BTS, L100.0100, L3890.6301, L509.4006, L3890.6102 ####[facility] [address] [place], [address] ALK PHOS 62 U/L Normal 35-104 [facility] Comment on above: Performed By: #### L 509.8002, L501.9985, L500.4050, L3890.6006, BTS, L100.0100, L3890.6301, L509.4006, L3890.6102 ####[facility] [address] [place], [address] ALT [Catalytic activity/Vol] 58 U/L High <=34 [facility] Comment on above: Performed By: #### L 509.8002, L501.9985, L500.4050, L3890.6006, BTS, L100.0100, L3890.6301, L509.4006, L3890.6102 ####[facility] [address] [place], [address] AST [Catalytic activity/Vol] 43 U/L High <=31 [facility] Comment on above: Performed By: #### L 509.8002, L501.9985, L500.4050, L3890.6006, BTS, L100.0100, L3890.6301, L509.4006, L3890.6102 ####[facility] [address] [place], [place], [phone] Bilirubin [Mass/Vol] 0.56 mg/dL Normal 0.00-1.30 [facility] Comment on above: Performed By: #### L 509.8002, L501.9985, L500.4050, L3890.6006, BTS, L100.0100, L3890.6301, L509.4006, L3890.6102 ####[facility] [address] [place], [place], [phone] BUN/CRE 10.7 RATIO Normal 10-20 [facility] Comment on above: Performed By: #### L 509.8002, L501.9985, L500.4050, L3890.6006, BTS, L100.0100, L3890.6301, L509.4006, L3890.6102 ####[facility] [address] [place], [address] Calcium [Mass/Vol] 9.5 mg/dL Normal 7.6-11.0 [facility] Comment on above: Performed By: #### L 509.8002, L501.9985, L500.4050, L3890.6006, BTS, L100.0100, L3890.6301, L509.4006, L3890.6102 ####[facility] [address] [place], [address] Chloride [Moles/Vol] 102 mmol/L Normal 98-108 [facility] Comment on above: Performed By: #### L 509.8002, L501.9985, L500.4050, L3890.6006, BTS, L100.0100, L3890.6301, L509.4006, L3890.6102 ####[facility] [address] [place], [address] CO2 [Moles/Vol] 17.7 mmol/L Low 21.0-32.0 [facility] Comment on above: Performed By: #### L 509.8002, L501.9985, L500.4050, L3890.6006, BTS, L100.0100, L3890.6301, L509.4006, L3890.6102 ####[facility] [address] [place], [address] Creatinine [Mass/Vol] 0.59 mg/dL Low 0.70-1.20 [facility] Comment on above: Performed By: #### L 509.8002, L501.9985, L500.4050, L3890.6006, BTS, L100.0100, L3890.6301, L509.4006, L3890.6102 ####[facility] [address] [place], [address] GAP 16 High 5-15 [facility] Comment on above: Performed By: #### L 509.8002, L501.9985, L500.4050, L3890.6006, BTS, L100.0100, L3890.6301, L509.4006, L3890.6102 ####[facility] [address] [place], [address] GFR/1.73 sq M.predicted among non-blacks MDRD (S/P/Bld) [Vol rate/Area] 128 mL/min/{1.73_m2} Normal >60 [facility] Comment on above: Result Comment: mL/m in/1.73m2 CKD-EPI Creatinine Equation (2020) Performed By: #### L 509.8002, L501.9985, L500.4050, L3890.6006, BTS, L100.0100, L3890.6301, L509.4006, L3890.6102 ####[facility] [address] [place], [address] Globulin (S) [Mass/Vol] 2.7 g/dL Normal 2.2-4.2 [facility] Comment on above: Performed By: #### L 509.8002, L501.9985, L500.4050, L3890.6006, BTS, L100.0100, L3890.6301, L509.4006, L3890.6102 ####[facility] [address] [place], [address] Glucose [Mass/Vol] 110 mg/dL High 70-99 [facility] Comment on above: Performed By: #### L 509.8002, L501.9985, L500.4050, L3890.6006, BTS, L100.0100, L3890.6301, L509.4006, L3890.6102 ####[facility] [address] [place], [address] Potassium [Moles/Vol] 3.7 mmol/L Normal 3.3-5.1 [facility] Comment on above: Performed By: #### L 509.8002, L501.9985, L500.4050, L3890.6006, BTS, L100.0100, L3890.6301, L509.4006, L3890.6102 ####[facility] [address] [place], [place], [address] Sodium [Moles/Vol] 135 mmol/L Normal 133-145 [facility] Comment on above: Performed By: #### L 509.8002, L501.9985, L500.4050, L3890.6006, BTS, L100.0100, L3890.6301, L509.4006, L3890.6102 ####[facility] [address] [place], [address] T PROT 6.9 g/dL Normal 5.9-8.4 [facility] Comment on above: Performed By: #### L 509.8002, L501.9985, L500.4050, L3890.6006, BTS, L100.0100, L3890.6301, L509.4006, L3890.6102 ####[facility] [address] [place], [address] Urea nitrogen [Mass/Vol] 6 mg/dL Normal 4-19 [facility] Comment on above: Performed By: #### L 509.8002, L501.9985, L500.4050, L3890.6006, BTS, L100.0100, L3890.6301, L509.4006, L3890.6102 ####[facility] [address] [place], [address] HIVon 05-07-2025 HIV Non-Reactive Normal Nonreactive [facility] Comment on above: Result Comment: Non- Reactive Reactive Repeatedly reactive samples must be confirmed according to CDC recommended confirmatory algorithms. The subresults for either HIVAG or AHIV can be used as an aid in the selection of the confirmation algorithm for reactive samples. Send out specimens with Reactive results to [facility] for confirmation. Order the HIV antibody detection and differentiation: lc#[id number] Performed By: #### L 509.8002, L501.9985, L500.4050, L3890.6006, BTS, L100.0100, L3890.6301, L509.4006, L3890.6102 ####[facility] [address] [facility] [place], [place], [address] Hemoglobin A1con 05-07-2025 HbA1c (Bld) [Mass fraction] 5.1 % Normal <=5.6 [facility] Comment on above: Result Comment: Norm al < 5.7 % Prediabetic 5.7 - 6.4 % Diabetic >or= 6.5 % Please note range changes. Performed By: #### L 509.8002, L501.9985, L500.4050, L3890.6006, BTS, L100.0100, L3890.6301, L509.4006, L3890.6102 #### [facility] [address] [facility] [place], [place], [address] Hepatitis C Antibodyon 05-07 Hepatitis C Ab Non-Reactive Normal Nonreactive [facility] Comment on above: Result Comment: Reac tive: Presumptive evidence of antibodies to HCV. Follow CDC recommendations for supplemental testing. Non-Reactive: Antibodies to HCV were not detected; does not exclude the possibility of exposure to HCV Reactive Results are presumptive evidence of antibodies to HCV. Follow CDC recommendations for supplemental testing. Order confirmation testing: HCV Quant by PCR testing - HCVPCR #[id number] Non Reactive: < 0.8 Equivocal: >/= 0.8 to < 1.0 Reactive: >/= 1.0 The CDC requires that a reactive/equivocal HCV antibody result be sent out for confirmation. HCV Quant by PCR testing. Performed By: #### L 509.8002, L501.9985, L500.4050, L3890.6006, BTS, L100.0100, L3890.6301, L509.4006, L3890.6102 ####[facility] [address], [address] L3890.6102on 05-07-2025 HEP B Surf Ag Non-Reactive Normal Nonreactive [facility] Comment on above: Result Comment: Reac tive: Presumptive evidence of HBV. Repeatedly reactive samples must be confirmed using a neutralization test ([employer] HBsAg Confirmatory Test) Non-Reactive: HBsAg not detected; does not exclude the possibility of exposure to HBV Performed By: #### L 509.8002, L501.9985, L500.4050, L3890.6006, BTS, L100.0100, L3890.6301, L509.4006, L3890.6102 ####[facility] [address], [address] L509.4006on 05-07-2025 Rubella IgG REAC Normal Nonreactive [facility] Comment on above: Result Comment: Anti body Result: Interpretation Non-Reactive: Non-Immune Reactive: Immune The following results were obtained with the [employer] Rubella IgG assay. Results from assays of other manufacturers cannot be used interchangeably. Performed By: #### L 509.8002, L501.9985, L500.4050, L3890.6006, BTS, L100.0100, L3890.6301, L509.4006, L3890.6102 ####[facility] [address] [place], [place], [address] Record Maker Office Visit Reporton 05-07-2025 Record Maker Office Visit Report [facility] [address], [address] [place] [address] OFFICE VISIT Date of Service: 05/07/25 MR#: [id number] Acct: [id number] Name: LUZ OLIVEIRA Rep #: [id number] : 2000 Provider: JELENA Orodnez ams Age/Sex: 24/F [place] [facility] [place]: Signed Intake Vital Signs 01/02/25 18:31 04/09/25 10:40 05/07/25 14:40 Height 5 ft 1 in 5 ft 1 in 5 ft 1 in Weight: 187 lb 4 oz BMI 35.4 BP 117/83 H Intake Visit Reasons: 13wk OB Chief Complaint: 13wk OB [employer] Required: No Is patient in pain?: No Allergies escitalopram (From Lexapro) Adverse Reaction (Severe, Verified 05/07/25 14:39) SUICIDAL citalopram hydrobromide (From Celexa) Adverse Reaction (Verified 05/07/25 14:39) Other Medications ???Medication ???Instructions ???Recorded ???Confirmed ???Type cdcmvmla-ass-Er-FA 1 mg 1 tab PO DAILY 08/09/22 05/07/25 H istory tablet metoclopramide HCl 5 mg tablet 5 mg PO QACHS #60 tabs 04/19/25 Rx (Reglan) Last Menstrual Period: 02/02/25 : No PFSH PFSH Medical History Congenital itefcl-kgfsbzh-oxvcz reflux Surgical History Wiseman teeth removed Family History Grandmother Breast cancer Brain cancer Grandfather CVA (cerebral vascular accident) Mother Diabetes Heart failure MRSA carrier History of recurrent miscarriages Father Hypertension Social History adopted: No household members: spouse and children housing: house number of children: 1 current occupation: [employer] current occupational exposures/hazards: No pets [...] 3-4 times per week duration: 15-30 minutes/day kalpana/mormon: Zoroastrianism seatbelt use: always do you feel safe at home: Yes 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 Normal [facility] Syphilis Antibodieson 2024 Syphilis Abs Non-Reactive Normal Nonreactive [facility] Comment on above: Performed By: #### L 509.8002, L501.9985, L500.4050, L3890.6006, BTS, L100.0100, L3890.6301, L509.4006, L3890.6102 ####[facility] [address] [place], [place], [id number] Type AND Screenon 05-07-2025 Ab SCREEN GEL Negative Normal [facility] Comment on above: Order Comment: PN Performed By: #### L 509.8002, L501.9985, L500.4050, L3890.6006, BTS, L100.0100, L3890.6301, L509.4006, L3890.6102 ####[facility] [address] [place], [address] Chlamydia/GC CHICHO aptimaon CHLAMY,NUC ACID Negative Normal Negative [facility] Comment on above: Performed By: #### L 501.2450, L500.3400, L500.2500 #### [facility] [address] [place], [address] GC BY NUC ACID Negative Normal Negative [facility] Comment on above: Result Comment: Perf ormed at: =G - [facility] [address] [id number] Sales Performance Analyst: Rubi Snow MD, Phone: [phone] Performed By: #### L 501.2450, L500.3400, L500.2500 #### [facility] [address] [place], [address] PAP I-G w/rfx hrHPV-Aptimaon 04-12-2025 ADEQ Comment Normal . [facility] Comment on above: Order Comment: Speci men Comment: [id number] Comment: No. of containers..01 ThinPrep Vial Result Comment: Sati sfactory for evaluation. Endocervical and/or squamous metaplastic cells (endocervical component) are present. Performed By: #### L 501.2450, L500.3400, L500.2500 #### [facility] [address] [place], [address] COMM . Normal . [facility] Comment on above: Order Comment: Speci men Comment: [id number] Comment: No. of containers..01 ThinPrep Vial Performed By: #### L 501.2450, L500.3400, L500.2500 #### [facility] [address] [place], [place], [address] COMMENT Comment Normal . [facility] Comment on above: Order Comment: Speci men Comment: [id number] Comment: No. of containers..01 ThinPrep Vial Result Comment: This liquid based ThinPrep(R) pap test was screened with the use of an image guided system. Performed By: #### L 501.2450, L500.3400, L500.2500 #### [facility] [address] [place], [place], [address] DIAG Comment Normal . [facility] Comment on above: Order Comment: Speci men Comment: [id number] Comment: No. of containers..01 ThinPrep Vial Result Comment: NEGA TIVE FOR INTRAEPITHELIAL LESION OR MALIGNANCY. Performed By: #### L 501.2450, L500.3400, L500.2500 #### [facility] [address] [place], [place], [address] HPV RFLX Comment Normal . [facility] Comment on above: Order Comment: Speci men Comment: [id number] Comment: No. of containers..01 ThinPrep Vial Result Comment: The HPV DNA reflex criteria were not met with this specimen result therefore, no HPV testing was performed. Performed at: [address] [id number] Sales Performance Analyst: Ruib Snow MD, Phone: [phone] Performed By: #### L 501.2450, L500.3400, L500.2500 #### [facility] [address] [place], [place], [address] PAPSMR Comment Normal . [facility] Comment on above: Order Comment: Speci men Comment: [id number] Comment: No. of containers..01 ThinPrep Vial Result [...] By: #### L 501.2450, L500.3400, L500.2500 #### [facility] [address] [place], [address] PERFORM Comment Normal . [facility] Comment on above: Order Comment: Speci men Comment: [id number] Comment: No. of containers..01 ThinPrep Vial Result Comment: Delores Lombardo, [employer] (ASCP) Performed By: #### L 501.2450, L500.3400, L500.2500 #### [facility] [address] [place], [address] Urine Cultureon 04-11-2025 U[facility] Mixed Gram Positive Organisms [place] Count 80,000-100,000 MIXC Mixed contaminants. Submit a new specimen if indicated. Normal [facility] Comment on above: Performed By: #### L 501.2450, L500.3400, L500.2500 #### [facility] [address] [place], [place], [address] Record Maker Office Visit Reporton 04-09-2025 Record Maker Office Visit Report [facility] [address], [address] [place] [address] OFFICE VISIT Date of Service: 04/09/25 MR#: [id number] Acct: [id number] Name: LUZ OLIVEIRA Rep #: [id number] : 2000 Provider: Dr. Geraldine storey MD Age/Sex: 24/F [place] [facility] [place]: Signed Intake Vital Signs 01/02/25 18:31 03/13/25 11:49 04/09/25 10:39 04/09/25 10:40 Height 5 ft 1 in 5 ft 1 in 5 ft 1 in 5 ft 1 in Weight: 194 lb 8 oz BMI 36.7 BP 106/69 Intake Visit Reasons: *NEW* NOB LMP 02/02, KIMO 11/09 per [employer] Required: No Is patient in pain?: Yes (cramping with urination) Allergies escitalopram (From Lexapro) Adverse Reaction (Severe, Verified 04/09/25 10:39) SUICIDAL citalopram hydrobromide (From Celexa) Adverse Reaction (Verified 04/09/25 10:39) Other Medications ???Medication ???Instructions ???Recorded ???Confirmed ???Type ayickqzx-yzq-Gs-FA 1 mg 1 tab PO DAILY 08/09/22 04/09/25 H istory tablet Last Menstrual Period: 02/02/25 Zika: Zika virus screening: Negative : No PFSH PFSH Medical History (Updated 04/09/25 @ 10:50 by Reemdios Wong) Congenital dtyovc-zwvenjr-wufgb reflux Surgical History Wiseman teeth removed Family History Grandmother Breast cancer Brain cancer Grandfather CVA (cerebral vascular accident) Mother Diabetes Heart failure MRSA carrier History of recurrent miscarriages Father Hypertension Social History adopted: No household members: spouse and children housing: house number of children: 1 current occupation: [employer] current occupational exposures/hazards: No pets [...] 3-4 times per week duration: 15-30 minutes/day kalpana/mormon: Zoroastrianism seatbelt use: always do you feel safe at home: Yes 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 Normal [facility] Protein+Creatinine Ratio,Uri neon 04-09-2025 PROT:CRE RATIO 58 mg/g CRE Normal 0-200 [facility] Comment on above: Performed By: #### L 501.2450, L500.3400, L500.2500 #### [facility] [address] [place], [address] Protein (U) [Mass/Vol] 15.6 mg/dL High 0.0-12.0 [facility] Comment on above: Performed By: #### L 501.2450, L500.3400, L500.2500 #### [facility] [address] [place], [address] Transvaginal w/Preg USon Transvaginal w/Preg US [facility] Imaging Services [address] [place], [place] [address] Transvaginal w/Preg US MR#: [id number] Acct: [id number] Name: LUZ OLIVEIRA Rep #: [id number] : 2000 F 24 From: Maxwell Ponce MD PCP: Care Physician,No Primary Status: REG CLI Study: Transvaginal w/Preg US Date of Exam: 03/15/25 Exam# [id number] Ordering Dr: Remedios Garcia NP, NP PROCEDURE: [...] CC: JARAD Garcia; No Primary Care Physician Product Development Director: Signed Normal [facility] hCG Titer Quant., Serumon HCG QUANT. 7025 mIU/mL High <9 non-preg [facility] Comment on above: Result Comment: Gest ational Age 0.2-1 Week: 5-50 mIU/mL 1-2 Weeks: 50-500 mIU/mL 2-3 Weeks: 100-5000 mIU/mL 3-4 Weeks: 500-10,000 mIU/mL 4-5 Weeks:1000-50,000 mIU/mL 5-6 Weeks: 10,000-100,000 mIU/mL 6-8 Weeks: 15,000-200,000 mIU/mL 2-3 Months:10,000-100,000 mIU/mL Performed By: #### L 501.2450, L500.3400, L500.2500 #### [facility] [address] [place], [address] Office Visit Reporton 2024 Office Visit Report [facility] Services [address] [place] [address] OFFICE VISIT Date of Service: 03/13/25 MR#: [id number] Acct: [id number] Patient: LUZ OLIVEIRA Rep #: [id number] : 2000 Provider: JARAD moctezuma Age/Sex: 24/F [place] [facility] [place]: Signed Intake Vital Signs 01/02/25 18:31 03/13/25 11:49 Height 5 ft 1 in 5 ft 1 in Weight: 200 lb 6 oz BMI 37.8 BP 118/72 Intake Visit Reasons: Pre New OB, Confirm preg, Vitals [employer] Required: No Is patient in pain?: No Allergies escitalopram (From Lexapro) Adverse Reaction (Severe, Verified 03/13/25 11:12) SUICIDAL citalopram hydrobromide (From Celexa) Adverse Reaction (Verified 03/13/25 11:12) Other Medications ???Medication ???Instructions ???Recorded ???Confirmed ???Type onvgznza-igq-Jy-FA 1 mg 1 tab PO DAILY 08/09/22 [...] Pt with C/O spotting since last night. [facility] notified in office. HcG and [...] Acute (9) Autism: Status: Acute (10) Congenital ozjdiu-kdhakii-cdzxh reflux: Status: Acute Comment: Recurrent UTI's and [...] fallen in the past year?: No 03/13/25 4240 (more content not included)... Normal [facility] hCG Titer Quant., Serumon HCG QUANT. 3759 mIU/mL High <9 non-preg [facility] Comment on above: Result Comment: Gest ational Age 0.2-1 Week: 5-50 mIU/mL 1-2 Weeks: 50-500 mIU/mL 2-3 Weeks: 100-5000 mIU/mL 3-4 Weeks: 500-10,000 mIU/mL 4-5 Weeks:1000-50,000 mIU/mL 5-6 Weeks: 10,000-100,000 mIU/mL 6-8 Weeks: 15,000-200,000 mIU/mL 2-3 Months:10,000-100,000 mIU/mL Performed By: #### L 700.8000 ####[facility] [address] [place], [place], [address] Culture, Blood (WB)on 2024 CUB Blood cultures x2, from two different sites No growth in 5 days. Normal [facility] Comment on above: Performed By: #### L 501.0900 #### [facility] [address] [place], [place], [id number] Urine Cultureon 01-04-2025 URC Presumptive E. coli [place] Count 25,000-50,000 Presumptive E. coli: REACTION Ampicillin [...] TMP SMX Islt BRANDI <=20 S Normal [facility] Comment on above: Performed By: #### L 501.0900 #### [facility] [address] [place], [place], [address] Abdomen/Pelvis W IV Cont ONL Yon 01-02-2025 Abdomen/Pelvis W IV Cont ONLY [facility] Imaging Services [address] [place], [place] [address] Abdomen/Pelvis W IV Cont ONLY MR#: [id number] Acct: [id number] Name: TEELUZ ROY Rep #: [id number] : 2000 F 24 From: Yari Reyes nd, MD PCP: Care Physician,No Primary Status: [facility] ER Study: Abdomen/Pelvis W IV Cont ONLY Date of Exam: Exam# [id number] Ordering Dr: Mendez Gardner DO PROCEDURE: ABDOMEN/PELVIS [...] recommended. 3. Diffuse hepatic steatosis. Reading Location: [facility] CC: Dr. Mendez Gardner DO; No Primary Care Physician Product Development Director: Signed Normal [facility] CBC W/Diff, Automatedon - Absolute Lymph 0.64 X10 3/uL Low 0.83-4.51 [facility] Comment on above: Order Comment: REDRA W. PREVIOUS SPECIMEN REJECTED DUE TOCLOTTED SPECIMEN. 01/02/251948 Performed By: #### L 501.0900 #### [facility] [address] [place], [address] Absolute Neut 9.4 X10 3/uL High 2.0-7.7 [facility] Comment on above: Order Comment: REDRA W. PREVIOUS SPECIMEN REJECTED DUE TOCLOTTED SPECIMEN. 01/02/251948 Performed By: #### L 501.0900 #### [facility] [address] [place], [address] Basophils/100 WBC (Bld) 0.1 % Normal 0-1 [facility] Comment on above: Order Comment: REDRA W. PREVIOUS SPECIMEN REJECTED DUE TOCLOTTED SPECIMEN. 01/02/251948 Performed By: #### L 501.0900 #### [facility] [address] [place], [address] Eosinophils/100 WBC (Bld) 0.0 % Normal 0-5 [facility] Comment on above: Order Comment: REDRA W. PREVIOUS SPECIMEN REJECTED DUE TOCLOTTED SPECIMEN. 01/02/251948 Performed By: #### L 501.0900 #### [facility] [address] [place], [address] Erythrocyte distribution width (RBC) [Ratio] 12.4 % Normal 11.6-14.6 [facility] Comment on above: Order Comment: REDRA W. PREVIOUS SPECIMEN REJECTED DUE TOCLOTTED SPECIMEN. 01/02/251948 Performed By: #### L 501.0900 #### [facility] [address] [place], [address] Hematocrit (Bld) [Volume fraction] 41.9 % Normal 37-47 [facility] Comment on above: Order Comment: REDRA W. PREVIOUS SPECIMEN REJECTED DUE TOCLOTTED SPECIMEN. 01/02/251948 Performed By: #### L 501.0900 #### [facility] [address] [place], [address] Hemoglobin (Bld) [Mass/Vol] 14.6 g/dL Normal 12.0-15.0 [facility] Comment on above: Order Comment: REDRA W. PREVIOUS SPECIMEN REJECTED DUE TOCLOTTED SPECIMEN. 01/02/251948 Performed By: #### L 501.0900 #### [facility] [address] [place], [address] IG% 0.600 Normal 0.0-0.9 [facility] Comment on above: Order Comment: REDRA W. PREVIOUS SPECIMEN REJECTED DUE TOCLOTTED SPECIMEN. 01/02/251948 Result Comment: IG% - Immature Granulocytes (promyelocytes, myelocytes and metamyelocytes) > 1% indicates that a LEFT SHIFT is Present. Performed By: #### L 501.0900 #### [facility] [address] [place], [address] Lymphocytes/100 WBC (Bld) 5.9 % Low 19-41 [facility] Comment on above: Order Comment: REDRA W. PREVIOUS SPECIMEN REJECTED DUE TOCLOTTED SPECIMEN. 01/02/251948 Performed By: #### L 501.0900 #### [facility] [address] [place], [address] MCH (RBC) [Entitic mass] 30.8 pg Normal 27.0-32.0 [facility] Comment on above: Order Comment: REDRA W. PREVIOUS SPECIMEN REJECTED DUE TOCLOTTED SPECIMEN. 01/02/251948 Performed By: #### L 501.0900 #### [facility] [address] [place], [address] MCHC (RBC) [Mass/Vol] 34.8 g/dL Normal 32-36 [facility] Comment on above: Order Comment: REDRA W. PREVIOUS SPECIMEN REJECTED DUE TOCLOTTED SPECIMEN. 01/02/251948 Performed By: #### L 501.0900 #### [facility] [address] [place], [address] MCV (RBC) [Entitic vol] 88.4 fL Normal 81-99 [facility] Comment on above: Order Comment: REDRA W. PREVIOUS SPECIMEN REJECTED DUE TOCLOTTED SPECIMEN. 01/02/251948 Performed By: #### L 501.0900 #### [facility] [address] [place], [address] Monocytes/100 WBC (Bld) 5.9 % Normal 0-10 [facility] Comment on above: Order Comment: REDRA W. PREVIOUS SPECIMEN REJECTED DUE TOCLOTTED SPECIMEN. 01/02/251948 Performed By: #### L 501.0900 #### [facility] [address] [place], [address] Neutrophils/100 WBC (Bld) 87.5 % High 47-70 [facility] Comment on above: Order Comment: REDRA W. PREVIOUS SPECIMEN REJECTED DUE TOCLOTTED SPECIMEN. 01/02/251948 Performed By: #### L 501.0900 #### [facility] [address] [place], [address] Nucleated RBC (Bld) [#/Vol] 0 10*3/uL Normal 0-5 [facility] Comment on above: Order Comment: REDRA W. PREVIOUS SPECIMEN REJECTED DUE TOCLOTTED SPECIMEN. 01/02/251948 Performed By: #### L 501.0900 #### [facility] [address] [place], [address] Platelet mean volume (Bld) [Entitic vol] 10.2 fL Normal 6.2-12.0 [facility] Comment on above: Order Comment: REDRA W. PREVIOUS SPECIMEN REJECTED DUE TOCLOTTED SPECIMEN. 01/02/251948 Performed By: #### L 501.0900 #### [facility] [address] [place], [address] Platelets (Bld) [#/Vol] 188 10*3/uL Normal 150-450 [facility] Comment on above: Order Comment: REDRA W. PREVIOUS SPECIMEN REJECTED DUE TOCLOTTED SPECIMEN. 01/02/251948 Performed By: #### L 501.0900 #### [facility] [address] [place], [address] RBC (Bld) [#/Vol] 4.74 10*6/uL Normal 4.2-5.4 [facility] Comment on above: Order Comment: REDRA W. PREVIOUS SPECIMEN REJECTED DUE TOCLOTTED SPECIMEN. 01/02/251948 Performed By: #### L 501.0900 #### [facility] [address] [place], [address] RDW SD 40.1 fl Normal 35.1-43.9 [facility] Comment on above: Order Comment: REDRA W. PREVIOUS SPECIMEN REJECTED DUE TOCLOTTED SPECIMEN. 01/02/251948 Performed By: #### L 501.0900 #### [facility] [address] [place], [address] WBC (Bld) [#/Vol] 10.8 10*3/uL Normal 4.4-11.0 [facility] Comment on above: Order Comment: REDRA W. PREVIOUS SPECIMEN REJECTED DUE TOCLOTTED SPECIMEN. 01/02/251948 Performed By: #### L 501.0900 #### [facility] [address] [place], [address] Absolute Neut Normal 2.0-7.7 [facility] Comment on above: Result Comment: This specimen has been REJECTED due to Laboratory criteria: Clotted. ED-ELVIN has been notified of need of recollection. 01/02/251947 Performed By: #### L 501.2450, L500.3400, L500.2500 #### [facility] [address] [place], [address] HCT Normal 37-47 [facility] Comment on above: Result Comment: This specimen has been REJECTED due to Laboratory criteria: Clotted. ED-ELVIN has been notified of need of recollection. 01/02/251947 Performed By: #### L 501.2450, L500.3400, L500.2500 #### [facility] [address] [place], [address] HGB Normal 12.0-15.0 [facility] Comment on above: Result Comment: This specimen has been REJECTED due to Laboratory criteria: Clotted. ED-ELVIN has been notified of need of recollection. 01/02/251947 Performed By: #### L 501.2450, L500.3400, L500.2500 #### [facility] [address] [place], [address] MCH Normal 27.0-32.0 [facility] Comment on above: Result Comment: This specimen has been REJECTED due to Laboratory criteria: Clotted. ED-ELVIN has been notified of need of recollection. 01/02/251947 Performed By: #### L 501.2450, L500.3400, L500.2500 #### [facility] [address] [place], [address] MCHC Normal 32-36 [facility] Comment on above: Result Comment: This specimen has been REJECTED due to Laboratory criteria: Clotted. ED-ELVIN has been notified of need of recollection. 01/02/251947 Performed By: #### L 501.2450, L500.3400, L500.2500 #### [facility] [address] [place], [address] MCV Normal 81-99 [facility] Comment on above: Result Comment: This specimen has been REJECTED due to Laboratory criteria: Clotted. ED-ELVIN has been notified of need of recollection. 01/02/251947 Performed By: #### L 501.2450, L500.3400, L500.2500 #### [facility] [address] [place], [address] NEUT% Normal 47-70 [facility] Comment on above: Result Comment: This specimen has been REJECTED due to Laboratory criteria: Clotted. ED-ELVIN has been notified of need of recollection. 01/02/251947 Performed By: #### L 501.2450, L500.3400, L500.2500 #### [facility] [address] [place], [address] PLT Normal 150-450 [facility] Comment on above: Result Comment: This specimen has been REJECTED due to Laboratory criteria: Clotted. ED-ELVIN has been notified of need of recollection. 01/02/251947 Performed By: #### L 501.2450, L500.3400, L500.2500 #### [facility] [address] [place], [address] RBC Normal 4.2-5.4 [facility] Comment on above: Result Comment: This specimen has been REJECTED due to Laboratory criteria: Clotted. ED-ELVIN has been notified of need of recollection. 01/02/251947 Performed By: #### L 501.2450, L500.3400, L500.2500 #### [facility] [address] [place], [address] RDW CV Normal 11.6-14.6 [facility] Comment on above: Result Comment: This specimen has been REJECTED due to Laboratory criteria: Clotted. ED-ELVIN has been notified of need of recollection. 01/02/251947 Performed By: #### L 501.2450, L500.3400, L500.2500 #### [facility] [address] [place], [address] RDW SD Normal 35.1-43.9 [facility] Comment on above: Result Comment: This specimen has been REJECTED due to Laboratory criteria: Clotted. ED-ELVIN has been notified of need of recollection. 01/02/251947 Performed By: #### L 501.2450, L500.3400, L500.2500 #### [facility] [address] [place], [address] WBC Normal 4.4-11.0 [facility] Comment on above: Result Comment: This specimen has been REJECTED due to Laboratory criteria: Clotted. ED-ELVIN has been notified of need of recollection. 01/02/251947 Performed By: #### L 501.2450, L500.3400, L500.2500 #### [facility] [address] [place], [address] Comprehensive Metabolic Prof ilon 01-02-2025 Albumin [Mass/Vol] 4.5 g/dL Normal 3.5-5.0 [facility] Comment on above: Performed By: #### L 501.2450, L500.3400, L500.2500 #### [facility] [address] [place], [address] Albumin/Globulin [Mass ratio] 1.3 {ratio} Normal 0.9-2.4 [facility] Comment on above: Performed By: #### L 501.2450, L500.3400, L500.2500 #### [facility] [address] [place], [address] ALK PHOS 69 U/L Normal 35-104 [facility] Comment on above: Performed By: #### L 501.2450, L500.3400, L500.2500 #### [facility] [address] [place], [address] ALT [Catalytic activity/Vol] 50 U/L High <=34 [facility] Comment on above: Performed By: #### L 501.2450, L500.3400, L500.2500 #### [facility] [address] [place], [address] AST [Catalytic activity/Vol] 28 U/L Normal <=31 [facility] Comment on above: Performed By: #### L 501.2450, L500.3400, L500.2500 #### [facility] [address] [place], [address] Bilirubin [Mass/Vol] 0.96 mg/dL Normal 0.00-1.30 [facility] Comment on above: Performed By: #### L 501.2450, L500.3400, L500.2500 #### [facility] [address] [place], [address] BUN/CRE 13.3 RATIO Normal 10-20 [facility] Comment on above: Performed By: #### L 501.2450, L500.3400, L500.2500 #### [facility] [address] [place], [address] Calcium [Mass/Vol] 9.6 mg/dL Normal 7.6-11.0 [facility] Comment on above: Performed By: #### L 501.2450, L500.3400, L500.2500 #### [facility] [address] [place], [address] Chloride [Moles/Vol] 102 mmol/L Normal 98-108 [facility] Comment on above: Performed By: #### L 501.2450, L500.3400, L500.2500 #### [facility] [address] [place], [address] CO2 [Moles/Vol] 23.0 mmol/L Normal 21.0-32.0 [facility] Comment on above: Performed By: #### L 501.2450, L500.3400, L500.2500 #### [facility] [address] [place], [address] Creatinine [Mass/Vol] 0.93 mg/dL Normal 0.70-1.20 [facility] Comment on above: Performed By: #### L 501.2450, L500.3400, L500.2500 #### [facility] [address] [place], [address] ECRCL 94.15 ml/min Normal 50-250 [facility] Comment on above: Performed By: #### L 501.2450, L500.3400, L500.2500 #### [facility] [address] [place], [address] GAP 13 Normal 5-15 [facility] Comment on above: Performed By: #### L 501.2450, L500.3400, L500.2500 #### [facility] [address] [place], [address] GFR/1.73 sq M.predicted among non-blacks MDRD (S/P/Bld) [Vol rate/Area] 87 mL/min/{1.73_m2} Normal >60 [facility] Comment on above: Result Comment: mL/m in/1.73m2 CKD-EPI Creatinine Equation (2020) Performed By: #### L 501.2450, L500.3400, L500.2500 #### [facility] [address] [place], [address] Globulin (S) [Mass/Vol] 3.4 g/dL Normal 2.2-4.2 [facility] Comment on above: Performed By: #### L 501.2450, L500.3400, L500.2500 #### [facility] [address] [place], [address] Glucose [Mass/Vol] 109 mg/dL High 70-99 [facility] Comment on above: Performed By: #### L 501.2450, L500.3400, L500.2500 #### [facility] [address] [place], [address] Potassium [Moles/Vol] 3.4 mmol/L Normal 3.3-5.1 [facility] Comment on above: Performed By: #### L 501.2450, L500.3400, L500.2500 #### [facility] [address] [place], [address] Sodium [Moles/Vol] 138 mmol/L Normal 133-145 [facility] Comment on above: Performed By: #### L 501.2450, L500.3400, L500.2500 #### [facility] [address] [place], [address] T PROT 7.9 g/dL Normal 5.9-8.4 [facility] Comment on above: Performed By: #### L 501.2450, L500.3400, L500.2500 #### [facility] [address] [place], [address] Urea nitrogen [Mass/Vol] 12 mg/dL Normal 4-19 [facility] Comment on above: Performed By: #### L 501.2450, L500.3400, L500.2500 #### [facility] [address] [place], [address] Emergency Department Summary on 01-02-2025 Emergency Department Summary [facility] Medical Records Department [address] [place] [address] Emergency Department Summary 01/02/25 MR#: [id number] Acct: [id number] Name: LUZ OLIVEIRA Rep #: [id number] : 2000 24 From: Mendez Gardnre DO PCP: Care Physician,No Primary Status:REG ER [...] States that she tried Azo at home. [facility] Medical History Lumbar radiculopathy, acute Acute lumbar myofascial strain Blunt abdominal trauma Chest wall contusion Cervical strain, acute Concussion without loss of consciousness Crushing injury of right great toe, initial encounter Congenital kirapx-dtxlrhi-wcgjp reflux Home Medications ???Medication ???Instructions ???Recorded ???Last Taken ???Type ytajzypq-caw-Oh-FA 1 mg 1 tab PO DAILY 08/09/22 [...] (cerebral vascular accident) Mother Diabetes Surgical History Wiseman teeth removed Social History household members: spouse [...] following commands knew that she was at [facility] years 2024 Skin:, No rashes [...] Respiratory Rat (more content not included)... Normal [facility] Lactic Acidon 01-02-2025 Lactate [Moles/Vol] 1.1 mmol/L Normal 0.0-2.0 [facility] Comment on above: Order Comment: Y Performed By: #### L 501.0900 #### [facility] [address] [place], [address] Lipaseon 01-02-2025 Lipase [Catalytic activity/Vol] 19 U/L Normal 13-75 [facility] Comment on above: Result Comment: Lisa paez note: LIPASE revised reference range effective 23. New Lipase methodology. Expected to produce lower values than the previous assay method. NEW Reference Range: 13 - 75 U/L Performed By: #### L 501.2450, L500.3400, L500.2500 #### [facility] [address] [place], [address] M100.678on 01-02-2025 M100.678 Pending SARS-CoV-2 (COVID 19) Negative INFLUENZA A Negative INFLUENZA B Negative RSV PCR Negative Normal [facility] Comment on above: Performed By: #### L 501.0900 #### [facility] [address] [place], [address] Partial Thromboplast Timeon 01-02-2025 aPTT Coag (Bld) [Time] 33.7 s Normal 24.1-36.2 [facility] Comment on above: Performed By: #### L 501.0900 #### [facility] [address] [place], [address] ,Serum,hCG Quali.on 01-02-2025 HCG, SERUM QUAL Negative Normal [facility] Comment on above: Performed By: #### L 501.2450, L500.3400, L500.2500 #### [facility] [address] [place], [address] Prothrombin Time w/INRon INR Coag (PPP) [Relative time] 1.1 {INR} Normal [facility] Comment on above: Performed By: #### L 501.0900 #### [facility] [address] [place], [address] PT Coag (PPP) [Time] 14.5 s Normal 11.7-14.9 [facility] Comment on above: Performed By: #### L 501.0900 #### [facility] [address] [place], [address] Urinalysis, Completeon 01-02 EPI,SQUAMOUS 5-10 SEEN Normal 5-10 [facility] Comment on above: Order Comment: CLEAN CATCH Performed By: #### L 501.0900 #### [facility] [address] [place], [address] BACTERIA 3+ /hpf Normal None Seen [facility] Comment on above: Order Comment: CLEAN CATCH Performed By: #### L 501.0900 #### [facility] [address] [place], [address] RBC 5-10 SEEN Normal 0-5 [facility] Comment on above: Order Comment: CLEAN CATCH Performed By: #### L 501.0900 #### [facility] [address] [place], [address] WBC >100 SEEN Normal 0-5 [facility] Comment on above: Order Comment: CLEAN CATCH Performed By: #### L 501.0900 #### [facility] [address] [place], [address] Mucus Ql (Urine sed) 0 SEEN Normal [facility] Comment on above: Order Comment: CLEAN CATCH Performed By: #### L 501.0900 #### [facility] [address] [place], [address] XR SPINE CERVICAL AP/LATon 0 02-19-2024 XR [...] 1:39:46 AM Ordering Provider: KIRSTEN Miller [facility]) B12on 10-19-2023 Cobalamin (Vitamin B12) [Mass/Vol] 279 pg/mL Normal 211-911 [facility]) Comment on above: Performed By: #### G FR, LIPID, HFP, A1C, IBC, TSH, CBC, ANEU, FT4, FERR, ADIFF, CMP, FE, VIDH, FT3 #### [place] [address] #### FOL, B12 #### [place] [address] FOLon 10-19-2023 Folate 8.29 ng/mL Normal 5.38-24.00 [facility]) Comment on above: Performed By: #### G FR, LIPID, HFP, A1C, IBC, TSH, CBC, ANEU, FT4, FERR, ADIFF, CMP, FE, VIDH, FT3 #### [place] [address] #### FOL, B12 #### [place] [address] .Auto Diffon 10-15-2023 Basophil, Absolute 0.0 10 3/mcL Normal 0.0-0.2 [facility]) Comment on above: Performed By: #### G FR, LIPID, HFP, A1C, IBC, TSH, CBC, ANEU, FT4, FERR, ADIFF, CMP, FE, VIDH, FT3 #### [address] [address] #### FOL, B12 #### [address] [address] Basophils/100 WBC (Bld) 0.2 % Normal 0.0-2.5 [facility] ([place]) Comment on above: Performed By: #### G FR, LIPID, HFP, A1C, IBC, TSH, CBC, ANEU, FT4, FERR, ADIFF, CMP, FE, VIDH, FT3 #### [address] [address] #### FOL, B12 #### [address] [address] Eosinophil, Absolute 0.0 10 3/mcL Normal 0.0-0.4 [facility] ([place]) Comment on above: Performed By: #### G FR, LIPID, HFP, A1C, IBC, TSH, CBC, ANEU, FT4, FERR, ADIFF, CMP, FE, VIDH, FT3 #### [address] [address] #### FOL, B12 #### [address] [address] Eosinophils/100 WBC (Bld) 0.6 % Normal 0.0-7.0 [facility] ([place]) Comment on above: Performed By: #### G FR, LIPID, HFP, A1C, IBC, TSH, CBC, ANEU, FT4, FERR, ADIFF, CMP, FE, VIDH, FT3 #### [address] [address] #### FOL, B12 #### [address] [address] Lymphocyte, Absolute 1.5 10 3/mcL Normal 0.8-3.9 [facility] ([place]) Comment on above: Performed By: #### G FR, LIPID, HFP, A1C, IBC, TSH, CBC, ANEU, FT4, FERR, ADIFF, CMP, FE, VIDH, FT3 #### [address] [address] #### FOL, B12 #### [address] [address] Lymphocytes/100 WBC (Bld) 23.2 % Normal 10.0-50.0 [facility] ([place]) Comment on above: Performed By: #### G FR, LIPID, HFP, A1C, IBC, TSH, CBC, ANEU, FT4, FERR, ADIFF, CMP, FE, VIDH, FT3 #### [address] [address] #### FOL, B12 #### [address] [address] Monocyte, Absolute 0.4 10 3/mcL Normal 0.2-1.0 [facility] ([place]) Comment on above: Performed By: #### G FR, LIPID, HFP, A1C, IBC, TSH, CBC, ANEU, FT4, FERR, ADIFF, CMP, FE, VIDH, FT3 #### [address] [address] #### FOL, B12 #### [address] [address] Monocytes/100 WBC (Bld) 5.6 % Normal 1.7-13.0 [facility] ([place]) Comment on above: Performed By: #### G FR, LIPID, HFP, A1C, IBC, TSH, CBC, ANEU, FT4, FERR, ADIFF, CMP, FE, VIDH, FT3 #### [address] [address] #### FOL, B12 #### [address] [address] Neutrophils/100 WBC (Bld) 70.4 % Normal 37.0-80.0 [facility] ([place]) Comment on above: Performed By: #### G FR, LIPID, HFP, A1C, IBC, TSH, CBC, ANEU, FT4, FERR, ADIFF, CMP, FE, VIDH, FT3 #### [address] [address] #### FOL, B12 #### [address] [address] .GFRon 10-15-2023 GFR Non- 73 ml/min/1.73sqm [facility] ([place]) Comment on above: Result Comment: GFR Population [...] FERR, ADIFF, CMP, FE, VIDH, FT3 #### [address] [address] #### FOL, B12 #### [address] [address] GFR 89 ml/min/1.73sqm Normal [facility] ([place]) Comment on above: Result Comment: GFR Population [...] FERR, ADIFF, CMP, FE, VIDH, FT3 #### [address] [address] #### FOL, B12 #### [place] [address] .NEUABSon 10-15-2023 Neutrophil, Absolute 4.5 10 3/mcL Normal 2.9-6.2 [facility] ([place]) Comment on above: Performed By: #### G FR, LIPID, HFP, A1C, IBC, TSH, CBC, ANEU, FT4, FERR, ADIFF, CMP, FE, VIDH, FT3 #### [place] [address] #### FOL, B12 #### [place] [address] A1Con 10-15-2023 HbA1c (Bld) [Mass fraction] 4.9 % Normal 4.3-6.4 [facility] ([place]) Comment on above: Performed By: #### G FR, LIPID, HFP, A1C, IBC, TSH, CBC, ANEU, FT4, FERR, ADIFF, CMP, FE, VIDH, FT3 #### [place] [address] #### FOL, B12 #### [place] [place] [address] CBCon 10-15-2023 Erythrocyte distribution width (RBC) [Ratio] 14.1 % Normal 11.5-14.5 [facility] ([place]) Comment on above: Performed By: #### G FR, LIPID, HFP, A1C, IBC, TSH, CBC, ANEU, FT4, FERR, ADIFF, CMP, FE, VIDH, FT3 #### [place] [address] #### FOL, B12 #### [place] [address] Hematocrit (Bld) [Volume fraction] 42.4 % Normal 37.0-47.0 [facility] ([place]) Comment on above: Performed By: #### G FR, LIPID, HFP, A1C, IBC, TSH, CBC, ANEU, FT4, FERR, ADIFF, CMP, FE, VIDH, FT3 #### [address] [address] #### FOL, B12 #### [address] [address] Hgb 14.5 G/dL Normal 12.0-16.0 [facility] ([place]) Comment on above: Performed By: #### G FR, LIPID, HFP, A1C, IBC, TSH, CBC, ANEU, FT4, FERR, ADIFF, CMP, FE, VIDH, FT3 #### [address] [address] #### FOL, B12 #### [address] [address] MCH (RBC) [Entitic mass] 30.8 pg Normal 27.0-31.2 [facility] ([place]) Comment on above: Performed By: #### G FR, LIPID, HFP, A1C, IBC, TSH, CBC, ANEU, FT4, FERR, ADIFF, CMP, FE, VIDH, FT3 #### [address] [address] #### FOL, B12 #### [address] [address] MCHC 34.2 G/dL Normal 33.0-37.0 [facility] ([place]) Comment on above: Performed By: #### G FR, LIPID, HFP, A1C, IBC, TSH, CBC, ANEU, FT4, FERR, ADIFF, CMP, FE, VIDH, FT3 #### [address] [address] #### FOL, B12 #### [address] [address] MCV (RBC) [Entitic vol] 90.3 fL Normal 80.0-94.0 [facility] ([place]) Comment on above: Performed By: #### G FR, LIPID, HFP, A1C, IBC, TSH, CBC, ANEU, FT4, FERR, ADIFF, CMP, FE, VIDH, FT3 #### [address] [address] #### FOL, B12 #### [address] [address] Platelet 237 10 3/mcL Normal 130-400 [facility] ([place]) Comment on above: Performed By: #### G FR, LIPID, HFP, A1C, IBC, TSH, CBC, ANEU, FT4, FERR, ADIFF, CMP, FE, VIDH, FT3 #### [address] [address] #### FOL, B12 #### [address] [address] Platelet mean volume (Bld) [Entitic vol] 8.6 fL Normal 7.4-10.4 [facility] ([place]) Comment on above: Performed By: #### G FR, LIPID, HFP, A1C, IBC, TSH, CBC, ANEU, FT4, FERR, ADIFF, CMP, FE, VIDH, FT3 #### [address] [address] #### FOL, B12 #### [address] [address] RBC 4.69 10 6/mcL Normal 4.20-5.40 [facility] ([place]) Comment on above: Performed By: #### G FR, LIPID, HFP, A1C, IBC, TSH, CBC, ANEU, FT4, FERR, ADIFF, CMP, FE, VIDH, FT3 #### [address] [address] #### FOL, B12 #### [address] [address] WBC 6.4 10 3/mcL Normal 4.6-10.8 [facility] ([place]) Comment on above: Performed By: #### G FR, LIPID, HFP, A1C, IBC, TSH, CBC, ANEU, FT4, FERR, ADIFF, CMP, FE, VIDH, FT3 #### [address] [address] #### FOL, B12 #### [address] [address] CMPon 10-15-2023 BUN/Creatinine Ratio 17 ratio Normal 7-27 [facility] ([place]) Comment on above: Performed By: #### G FR, LIPID, HFP, A1C, IBC, TSH, CBC, ANEU, FT4, FERR, ADIFF, CMP, FE, VIDH, FT3 #### [address] [address] #### FOL, B12 #### [address] [address] Calcium [Mass/Vol] 9.5 mg/dL Normal 8.4-10.2 [facility] ([place]) Comment on above: Performed By: #### G FR, LIPID, HFP, A1C, IBC, TSH, CBC, ANEU, FT4, FERR, ADIFF, CMP, FE, VIDH, FT3 #### [address] [address] #### FOL, B12 #### [address] [address] Chloride [Moles/Vol] 101 mmol/L Normal 98-107 [facility] ([place]) Comment on above: Performed By: #### G FR, LIPID, HFP, A1C, IBC, TSH, CBC, ANEU, FT4, FERR, ADIFF, CMP, FE, VIDH, FT3 #### [address] [address] #### FOL, B12 #### [address] [address] CO2 [Moles/Vol] 27 mmol/L Normal 22-29 [facility] ([place]) Comment on above: Performed By: #### G FR, LIPID, HFP, A1C, IBC, TSH, CBC, ANEU, FT4, FERR, ADIFF, CMP, FE, VIDH, FT3 #### [address] [address] #### FOL, B12 #### [address] [address] Creatinine [Mass/Vol] 0.94 mg/dL Normal 0.55-1.02 [facility] ([place]) Comment on above: Performed By: #### G FR, LIPID, HFP, A1C, IBC, TSH, CBC, ANEU, FT4, FERR, ADIFF, CMP, FE, VIDH, FT3 #### [address] [address] #### FOL, B12 #### [address] [address] Electrolyte Balance 13.0 mEq/L Normal 4.0-15.0 [facility] [place] Comment on above: Performed By: #### G FR, LIPID, HFP, A1C, IBC, TSH, CBC, ANEU, FT4, FERR, ADIFF, CMP, FE, VIDH, FT3 #### [address] [address] #### FOL, B12 #### [address] [address] Glucose [Mass/Vol] 92 mg/dL Normal 70-105 [facility] ([place]) Comment on above: Performed By: #### G FR, LIPID, HFP, A1C, IBC, TSH, CBC, ANEU, FT4, FERR, ADIFF, CMP, FE, VIDH, FT3 #### [address] [address] #### FOL, B12 #### [address] [address] Potassium [Moles/Vol] 4.2 mmol/L Normal 3.5-5.1 [facility] ([place]) Comment on above: Performed By: #### G FR, LIPID, HFP, A1C, IBC, TSH, CBC, ANEU, FT4, FERR, ADIFF, CMP, FE, VIDH, FT3 #### [address] [address] #### FOL, B12 #### [address] [address] Sodium [Moles/Vol] 141 mmol/L Normal 136-145 [facility] ([place]) Comment on above: Performed By: #### G FR, LIPID, HFP, A1C, IBC, TSH, CBC, ANEU, FT4, FERR, ADIFF, CMP, FE, VIDH, FT3 #### [address] [address] #### FOL, B12 #### [address] [address] Urea nitrogen [Mass/Vol] 16 mg/dL Normal 7-18 [facility] ([place]) Comment on above: Performed By: #### G FR, LIPID, HFP, A1C, IBC, TSH, CBC, ANEU, FT4, FERR, ADIFF, CMP, FE, VIDH, FT3 #### [address] [address] #### FOL, B12 #### [address] [address] FEon 10-15-2023 Iron [Mass/Vol] 141 ug/dL Normal 50-170 [facility] ([place]) Comment on above: Performed By: #### G FR, LIPID, HFP, A1C, IBC, TSH, CBC, ANEU, FT4, FERR, ADIFF, CMP, FE, VIDH, FT3 #### [address] [address] #### FOL, B12 #### [address] [address] Heidi 10-15-2023 Ferritin [Mass/Vol] 60.0 ng/mL Normal 8.0-252.0 [facility] [place] Comment on above: Performed By: #### G FR, LIPID, HFP, A1C, IBC, TSH, CBC, ANEU, FT4, FERR, ADIFF, CMP, FE, VIDH, FT3 #### [address] [address] #### FOL, B12 #### [address] [address] FT3on 10-15-2023 Free T3 [Mass/Vol] 3.26 pg/mL Normal 2.30-4.00 [facility] ([place]) Comment on above: Performed By: #### G FR, LIPID, HFP, A1C, IBC, TSH, CBC, ANEU, FT4, FERR, ADIFF, CMP, FE, VIDH, FT3 #### [address] [address] #### FOL, B12 #### [place] [address] FT4on 10-15-2023 Free T4 [Mass/Vol] 1.15 ng/dL Normal 0.76-1.46 [facility] ([place]) Comment on above: Performed By: #### G FR, LIPID, HFP, A1C, IBC, TSH, CBC, ANEU, FT4, FERR, ADIFF, CMP, FE, VIDH, FT3 #### [address] [address] #### FOL, B12 #### [place] [address] HFPon 10-15-2023 Bili Indirect 0.4 mg/dL Normal [facility] ([place]) Comment on above: Performed By: #### G FR, LIPID, HFP, A1C, IBC, TSH, CBC, ANEU, FT4, FERR, ADIFF, CMP, FE, VIDH, FT3 #### [address] [address] #### FOL, B12 #### [place] [address] Albumin Level 4.0 G/dL Normal 3.5-5.0 [facility] ([place]) Comment on above: Performed By: #### G FR, LIPID, HFP, A1C, IBC, TSH, CBC, ANEU, FT4, FERR, ADIFF, CMP, FE, VIDH, FT3 #### [address] [address] #### FOL, B12 #### [place] [address] Albumin/Globulin [Mass ratio] 1.1 {ratio} Normal 1.1-2.5 [facility] ([place]) Comment on above: Performed By: #### G FR, LIPID, HFP, A1C, IBC, TSH, CBC, ANEU, FT4, FERR, ADIFF, CMP, FE, VIDH, FT3 #### [address] [address] #### FOL, B12 #### [place] [address] ALP [Catalytic activity/Vol] 91 U/L Normal 40-135 [facility] ([place]) Comment on above: Performed By: #### G FR, LIPID, HFP, A1C, IBC, TSH, CBC, ANEU, FT4, FERR, ADIFF, CMP, FE, VIDH, FT3 #### [place] [address] #### FOL, B12 #### [place] [address] ALT [Catalytic activity/Vol] 25 U/L Normal 14-59 [facility] ([place]) Comment on above: Performed By: #### G FR, LIPID, HFP, A1C, IBC, TSH, CBC, ANEU, FT4, FERR, ADIFF, CMP, FE, VIDH, FT3 #### [place] [address] #### FOL, B12 #### [place] [address] AST [Catalytic activity/Vol] 15 U/L Normal 10-40 [facility] ([place]) Comment on above: Performed By: #### G FR, LIPID, HFP, A1C, IBC, TSH, CBC, ANEU, FT4, FERR, ADIFF, CMP, FE, VIDH, FT3 #### [place] [address] #### FOL, B12 #### [place] [address] Bili Direct 0.2 mg/dL Normal 0.0-0.2 [facility] ([place]) Comment on above: Result Comment: Use of this assay is not recommended for patients undergoing treatment with eltrombopag due to the potential for falsely elevated results. Performed By: #### G FR, LIPID, HFP, A1C, IBC, TSH, CBC, ANEU, FT4, FERR, ADIFF, CMP, FE, VIDH, FT3 #### [address] [address] #### FOL, B12 #### [place] [address] Bili Total 0.6 mg/dL Normal 0.2-1.0 [facility] ([place]) Comment on above: Result Comment: Use of this assay is not recommended for patients undergoing treatment with eltrombopag due to the potential for falsely elevated results. Performed By: #### G FR, LIPID, HFP, A1C, IBC, TSH, CBC, ANEU, FT4, FERR, ADIFF, CMP, FE, VIDH, FT3 #### [place] [address] #### FOL, B12 #### [place] [address] Globulin 3.7 G/dL Normal [facility] ([place]) Comment on above: Performed By: #### G FR, LIPID, HFP, A1C, IBC, TSH, CBC, ANEU, FT4, FERR, ADIFF, CMP, FE, VIDH, FT3 #### [address] [address] #### FOL, B12 #### [place] [address] Total Protein 7.7 G/dL Normal 6.4-8.2 [facility] ([place]) Comment on above: Performed By: #### G FR, LIPID, HFP, A1C, IBC, TSH, CBC, ANEU, FT4, FERR, ADIFF, CMP, FE, VIDH, FT3 #### [place] [address] #### FOL, B12 #### [place] [address] IBCon 10-15-2023 TIBC 330 mcg/dL Normal 250-450 [facility] ([place]) Comment on above: Performed By: #### G FR, LIPID, HFP, A1C, IBC, TSH, CBC, ANEU, FT4, FERR, ADIFF, CMP, FE, VIDH, FT3 #### [facility] [address] [place], [place] [address] #### FOL, B12 #### [place] [address] LABORATORYOrdered By: SYSTEM SYSTEM on 10-15-2023 25-hydroxyvitamin [...] 10-15-2023 Cholesterol [Mass/Vol] 172 mg/dL Normal 0-200 [facility] ([place]) Comment on above: Result Comment: Chol esterol Reference Interval: Less than 200 Desirable 200-239 Borderline high risk 240 and above High risk Performed By: #### G FR, LIPID, HFP, A1C, IBC, TSH, CBC, ANEU, FT4, FERR, ADIFF, CMP, FE, VIDH, FT3 #### [address] [address] #### FOL, B12 #### [address] [address] Cholesterol in HDL [Mass/Vol] 66 mg/dL High 40-60 [facility] ([place]) Comment on above: Performed By: #### G FR, LIPID, HFP, A1C, IBC, TSH, CBC, ANEU, FT4, FERR, ADIFF, CMP, FE, VIDH, FT3 #### [address] [address] #### FOL, B12 #### [address] [address] Cholesterol in LDL [Mass/Vol] 80 mg/dL Normal 0-130 [facility] ([place]) Comment on above: Performed By: #### G FR, LIPID, HFP, A1C, IBC, TSH, CBC, ANEU, FT4, FERR, ADIFF, CMP, FE, VIDH, FT3 #### [address] [address] #### FOL, B12 #### [address] [address] Triglyceride [Mass/Vol] 132 mg/dL Normal 0-150 [facility] ([place]) Comment on above: Result Comment: Trig lyceride Reference Interval: Less than 150 Normal 150-199 Borderline high risk 200-499 High risk 500 or higher Very high risk Performed By: #### G FR, LIPID, HFP, A1C, IBC, TSH, CBC, ANEU, FT4, FERR, ADIFF, CMP, FE, VIDH, FT3 #### [address] [address] #### FOL, B12 #### [place] [address] Laboratory - Chemistry and C hemistry - [...] 10-15-2023 TSH Qn 1.13 m[IU]/L Normal 0.36-3.74 [facility] ([place]) Comment on above: Performed By: #### G FR, LIPID, HFP, A1C, IBC, TSH, CBC, ANEU, FT4, FERR, ADIFF, CMP, FE, VIDH, FT3 #### [address] [address] #### FOL, B12 #### [place] [address] UDRUGon 10-15-2023 Amphetamine (u) Negative Normal Negative [facility] ([place]) Comment on above: Performed By: #### G FR, LIPID, HFP, A1C, IBC, TSH, CBC, ANEU, FT4, FERR, ADIFF, CMP, FE, VIDH, FT3 #### [address] [address] #### FOL, B12 #### [place] [address] Barbiturate (u) Negative Normal Negative [facility] ([place]) Comment on above: Performed By: #### G FR, LIPID, HFP, A1C, IBC, TSH, CBC, ANEU, FT4, FERR, ADIFF, CMP, FE, VIDH, FT3 #### [place] [address] #### FOL, B12 #### [place] [address] Benzodiazepine (u) Negative Normal Negative [facility] ([place]) Comment on above: Performed By: #### G FR, LIPID, HFP, A1C, IBC, TSH, CBC, ANEU, FT4, FERR, ADIFF, CMP, FE, VIDH, FT3 #### [address] [address] #### FOL, B12 #### [place] [address] Cannabinoid (u) Negative Normal Negative [facility] ([place]) Comment on above: Performed By: #### G FR, LIPID, HFP, A1C, IBC, TSH, CBC, ANEU, FT4, FERR, ADIFF, CMP, FE, VIDH, FT3 #### [address] [address] #### FOL, B12 #### [place] [address] Cocaine Ql (U) Negative Normal Negative [facility] ([place]) Comment on above: Performed By: #### G FR, LIPID, HFP, A1C, IBC, TSH, CBC, ANEU, FT4, FERR, ADIFF, CMP, FE, VIDH, FT3 #### [address] [address] #### FOL, B12 #### [address] [address] Methadone Ql (U) Negative Normal Negative [facility] ([place]) Comment on above: Performed By: #### G FR, LIPID, HFP, A1C, IBC, TSH, CBC, ANEU, FT4, FERR, ADIFF, CMP, FE, VIDH, FT3 #### [address] [address] #### FOL, B12 #### [place] [address] Opiate (u) Negative Normal Negative [facility] ([place]) Comment on above: Performed By: #### G FR, LIPID, HFP, A1C, IBC, TSH, CBC, ANEU, FT4, FERR, ADIFF, CMP, FE, VIDH, FT3 #### [address] [address] #### FOL, B12 #### [place] [address] PCP (u) Negative Normal Negative [facility] ([place]) Comment on above: Performed By: #### G FR, LIPID, HFP, A1C, IBC, TSH, CBC, ANEU, FT4, FERR, ADIFF, CMP, FE, VIDH, FT3 #### [address] [address] #### FOL, B12 #### [place] [address] Urine Drugs screened: See Below Normal [facility] ([place]) Comment on above: Result Comment: This [...] FERR, ADIFF, CMP, FE, VIDH, FT3 #### [address] [address] #### FOL, B12 #### [place] [address] VIDHon 10-15-2023 Vit. D 25-Hydroxy 12.2 ng/mL Normal [facility] ([place]) Comment on above: Result Comment: Inte rpretive Values Based on Total 25(OH) Vitamin D: Deficient <20 ng/mL Insufficient 20 - <30 ng/mL Sufficient 30-100 ng/mL Performed By: #### G FR, LIPID, HFP, A1C, IBC, TSH, CBC, ANEU, FT4, FERR, ADIFF, CMP, FE, VIDH, FT3 #### [place] [address] #### FOL, B12 #### [place] [address] .Auto Diffon 03-31-2023 Basophil, Absolute 0.0 10 3/mcL Normal 0.0-0.2 [facility] ([place]) Comment on above: Performed By: #### G FR, LIPID, HFP, A1C, IBC, TSH, CBC, ANEU, FT4, FERR, ADIFF, CMP, FE, VIDH, FT3 #### [place] [address] #### FOL, B12 #### [address] [address] Basophils/100 WBC (Bld) 0.1 % Normal 0.0-2.5 [facility] ([place]) Comment on above: Performed By: #### G FR, LIPID, HFP, A1C, IBC, TSH, CBC, ANEU, FT4, FERR, ADIFF, CMP, FE, VIDH, FT3 #### [place] [address] #### FOL, B12 #### [address] [address] Eosinophil, Absolute 0.0 10 3/mcL Normal 0.0-0.4 [facility] ([place]) Comment on above: Performed By: #### G FR, LIPID, HFP, A1C, IBC, TSH, CBC, ANEU, FT4, FERR, ADIFF, CMP, FE, VIDH, FT3 #### [address] [address] #### FOL, B12 #### [address] [address] Eosinophils/100 WBC (Bld) 0.0 % Normal 0.0-7.0 [facility] ([place]) Comment on above: Performed By: #### G FR, LIPID, HFP, A1C, IBC, TSH, CBC, ANEU, FT4, FERR, ADIFF, CMP, FE, VIDH, FT3 #### [address] [address] #### FOL, B12 #### [address] [address] Lymphocyte, Absolute 1.2 10 3/mcL Normal 0.8-3.9 [facility] ([place]) Comment on above: Performed By: #### G FR, LIPID, HFP, A1C, IBC, TSH, CBC, ANEU, FT4, FERR, ADIFF, CMP, FE, VIDH, FT3 #### [address] [address] #### FOL, B12 #### [address] [address] Lymphocytes/100 WBC (Bld) 11.4 % Normal 10.0-50.0 [facility] ([place]) Comment on above: Performed By: #### G FR, LIPID, HFP, A1C, IBC, TSH, CBC, ANEU, FT4, FERR, ADIFF, CMP, FE, VIDH, FT3 #### [address] [address] #### FOL, B12 #### [address] [address] Monocyte, Absolute 0.8 10 3/mcL Normal 0.2-1.0 [facility] ([place]) Comment on above: Performed By: #### G FR, LIPID, HFP, A1C, IBC, TSH, CBC, ANEU, FT4, FERR, ADIFF, CMP, FE, VIDH, FT3 #### [address] [address] #### FOL, B12 #### [address] [address] Monocytes/100 WBC (Bld) 7.6 % Normal 1.7-13.0 [facility] ([place]) Comment on above: Performed By: #### G FR, LIPID, HFP, A1C, IBC, TSH, CBC, ANEU, FT4, FERR, ADIFF, CMP, FE, VIDH, FT3 #### [address] [address] #### FOL, B12 #### [address] [address] Neutrophils/100 WBC (Bld) 80.9 % High 37.0-80.0 [facility] ([place]) Comment on above: Performed By: #### G FR, LIPID, HFP, A1C, IBC, TSH, CBC, ANEU, FT4, FERR, ADIFF, CMP, FE, VIDH, FT3 #### [address] [address] #### FOL, B12 #### [address] [address] .NEUABSon 03-31-2023 Neutrophil, Absolute 8.8 10 3/mcL High 2.9-6.2 [facility] ([place]) Comment on above: Performed By: #### G FR, LIPID, HFP, A1C, IBC, TSH, CBC, ANEU, FT4, FERR, ADIFF, CMP, FE, VIDH, FT3 #### [address] [address] #### FOL, B12 #### [address] [address] CBCon 03-31-2023 Erythrocyte distribution width (RBC) [Ratio] 13.9 % Normal 11.5-14.5 [facility] ([place]) Comment on above: Performed By: #### G FR, LIPID, HFP, A1C, IBC, TSH, CBC, ANEU, FT4, FERR, ADIFF, CMP, FE, VIDH, FT3 #### [address] [address] #### FOL, B12 #### [address] [address] Hematocrit (Bld) [Volume fraction] 33.1 % Low 37.0-47.0 [facility] ([place]) Comment on above: Performed By: #### G FR, LIPID, HFP, A1C, IBC, TSH, CBC, ANEU, FT4, FERR, ADIFF, CMP, FE, VIDH, FT3 #### [address] [address] #### FOL, B12 #### [place] [address] Hgb 11.5 G/dL Low 12.0-16.0 [facility] ([place]) Comment on above: Performed By: #### G FR, LIPID, HFP, A1C, IBC, TSH, CBC, ANEU, FT4, FERR, ADIFF, CMP, FE, VIDH, FT3 #### [address] [address] #### FOL, B12 #### [address] [address] MCH (RBC) [Entitic mass] 32.3 pg High 27.0-31.2 [facility] ([place]) Comment on above: Performed By: #### G FR, LIPID, HFP, A1C, IBC, TSH, CBC, ANEU, FT4, FERR, ADIFF, CMP, FE, VIDH, FT3 #### [address] [address] #### FOL, B12 #### [address] [address] MCHC 34.7 G/dL Normal 33.0-37.0 [facility] ([place]) Comment on above: Performed By: #### G FR, LIPID, HFP, A1C, IBC, TSH, CBC, ANEU, FT4, FERR, ADIFF, CMP, FE, VIDH, FT3 #### [address] [address] #### FOL, B12 #### [address] [address] MCV (RBC) [Entitic vol] 93.0 fL Normal 80.0-94.0 [facility] ([place]) Comment on above: Performed By: #### G FR, LIPID, HFP, A1C, IBC, TSH, CBC, ANEU, FT4, FERR, ADIFF, CMP, FE, VIDH, FT3 #### [address] [address] #### FOL, B12 #### [place] [address] Platelet 155 10 3/mcL Normal 130-400 [facility] ([place]) Comment on above: Performed By: #### G FR, LIPID, HFP, A1C, IBC, TSH, CBC, ANEU, FT4, FERR, ADIFF, CMP, FE, VIDH, FT3 #### [place] [address] #### FOL, B12 #### [address] [address] Platelet mean volume (Bld) [Entitic vol] 9.3 fL Normal 7.4-10.4 [facility] ([place]) Comment on above: Performed By: #### G FR, LIPID, HFP, A1C, IBC, TSH, CBC, ANEU, FT4, FERR, ADIFF, CMP, FE, VIDH, FT3 #### [place] [address] #### FOL, B12 #### [address] [address] RBC 3.55 10 6/mcL Low 4.20-5.40 [facility] ([place]) Comment on above: Performed By: #### G FR, LIPID, HFP, A1C, IBC, TSH, CBC, ANEU, FT4, FERR, ADIFF, CMP, FE, VIDH, FT3 #### [address] [address] #### FOL, B12 #### [address] [address] WBC 10.9 10 3/mcL High 4.6-10.8 [facility] ([place]) Comment on above: Performed By: #### G FR, LIPID, HFP, A1C, IBC, TSH, CBC, ANEU, FT4, FERR, ADIFF, CMP, FE, VIDH, FT3 #### [place] [address] [place], [place] [address] #### FOL, B12 #### [address] [address] LABORATORYOrdered By: Billie Ibarra on 03-31-2023 Basophil, [...] Ab RPR Ql (S) Non-Reactive Normal Non-Reactive [facility] ([place]) Comment on above: Result Comment: The RPR [...] FERR, ADIFF, CMP, FE, VIDH, FT3 #### [address] [address] #### FOL, B12 #### [address] [address] .Auto Diffon 03-30-2023 Basophil, Absolute 0.0 10 3/mcL Normal 0.0-0.2 [facility] ([place]) Comment on above: Performed By: #### G FR, LIPID, HFP, A1C, IBC, TSH, CBC, ANEU, FT4, FERR, ADIFF, CMP, FE, VIDH, FT3 #### [address] [address] #### FOL, B12 #### [address] [address] Basophils/100 WBC (Bld) 0.1 % Normal 0.0-2.5 [facility] ([place]) Comment on above: Performed By: #### G FR, LIPID, HFP, A1C, IBC, TSH, CBC, ANEU, FT4, FERR, ADIFF, CMP, FE, VIDH, FT3 #### [address] [address] #### FOL, B12 #### [address] [address] Eosinophil, Absolute 0.0 10 3/mcL Normal 0.0-0.4 [facility] ([place]) Comment on above: Performed By: #### G FR, LIPID, HFP, A1C, IBC, TSH, CBC, ANEU, FT4, FERR, ADIFF, CMP, FE, VIDH, FT3 #### [address] [address] #### FOL, B12 #### [address] [address] Eosinophils/100 WBC (Bld) 0.2 % Normal 0.0-7.0 [facility] ([place]) Comment on above: Performed By: #### G FR, LIPID, HFP, A1C, IBC, TSH, CBC, ANEU, FT4, FERR, ADIFF, CMP, FE, VIDH, FT3 #### [address] [address] #### FOL, B12 #### [address] [address] Lymphocyte, Absolute 1.8 10 3/mcL Normal 0.8-3.9 [facility] ([place]) Comment on above: Performed By: #### G FR, LIPID, HFP, A1C, IBC, TSH, CBC, ANEU, FT4, FERR, ADIFF, CMP, FE, VIDH, FT3 #### [address] [address] #### FOL, B12 #### [address] [address] Lymphocytes/100 WBC (Bld) 16.8 % Normal 10.0-50.0 [facility] ([place]) Comment on above: Performed By: #### G FR, LIPID, HFP, A1C, IBC, TSH, CBC, ANEU, FT4, FERR, ADIFF, CMP, FE, VIDH, FT3 #### [address] [address] #### FOL, B12 #### [address] [address] Monocyte, Absolute 0.8 10 3/mcL Normal 0.2-1.0 [facility] ([place]) Comment on above: Performed By: #### G FR, LIPID, HFP, A1C, IBC, TSH, CBC, ANEU, FT4, FERR, ADIFF, CMP, FE, VIDH, FT3 #### [address] [address] #### FOL, B12 #### [address] [address] Monocytes/100 WBC (Bld) 7.2 % Normal 1.7-13.0 [facility] ([place]) Comment on above: Performed By: #### G FR, LIPID, HFP, A1C, IBC, TSH, CBC, ANEU, FT4, FERR, ADIFF, CMP, FE, VIDH, FT3 #### [address] [address] #### FOL, B12 #### [address] [address] Neutrophils/100 WBC (Bld) 75.7 % Normal 37.0-80.0 [facility] ([place]) Comment on above: Performed By: #### G FR, LIPID, HFP, A1C, IBC, TSH, CBC, ANEU, FT4, FERR, ADIFF, CMP, FE, VIDH, FT3 #### [place] [address] #### FOL, B12 #### [place] [id number] .NEUABSon 03-30-2023 Neutrophil, Absolute 8.2 10 3/mcL High 2.9-6.2 [facility] ([place]) Comment on above: Performed By: #### G FR, LIPID, HFP, A1C, IBC, TSH, CBC, ANEU, FT4, FERR, ADIFF, CMP, FE, VIDH, FT3 #### [place] [address] #### FOL, B12 #### [place] [address] CBCon 03-30-2023 Erythrocyte distribution width (RBC) [Ratio] 13.8 % Normal 11.5-14.5 [facility] ([place]) Comment on above: Performed By: #### G FR, LIPID, HFP, A1C, IBC, TSH, CBC, ANEU, FT4, FERR, ADIFF, CMP, FE, VIDH, FT3 #### [place] [address] #### FOL, B12 #### [place] [address] Hematocrit (Bld) [Volume fraction] 37.2 % Normal 37.0-47.0 [facility] ([place]) Comment on above: Performed By: #### G FR, LIPID, HFP, A1C, IBC, TSH, CBC, ANEU, FT4, FERR, ADIFF, CMP, FE, VIDH, FT3 #### [place] [address] #### FOL, B12 #### [place] [address] Hgb 12.9 G/dL Normal 12.0-16.0 [facility] ([place]) Comment on above: Performed By: #### G FR, LIPID, HFP, A1C, IBC, TSH, CBC, ANEU, FT4, FERR, ADIFF, CMP, FE, VIDH, FT3 #### [address] [address] #### FOL, B12 #### [address] [address] MCH (RBC) [Entitic mass] 32.2 pg High 27.0-31.2 [facility] ([place]) Comment on above: Performed By: #### G FR, LIPID, HFP, A1C, IBC, TSH, CBC, ANEU, FT4, FERR, ADIFF, CMP, FE, VIDH, FT3 #### [address] [address] #### FOL, B12 #### [address] [address] MCHC 34.7 G/dL Normal 33.0-37.0 [facility] ([place]) Comment on above: Performed By: #### G FR, LIPID, HFP, A1C, IBC, TSH, CBC, ANEU, FT4, FERR, ADIFF, CMP, FE, VIDH, FT3 #### [address] [address] #### FOL, B12 #### [address] [address] MCV (RBC) [Entitic vol] 92.8 fL Normal 80.0-94.0 [facility] ([place]) Comment on above: Performed By: #### G FR, LIPID, HFP, A1C, IBC, TSH, CBC, ANEU, FT4, FERR, ADIFF, CMP, FE, VIDH, FT3 #### [address] [address] #### FOL, B12 #### [address] [address] [place] 169 10 3/mcL Normal 130-400 [facility] ([place]) Comment on above: Performed By: #### G FR, LIPID, HFP, A1C, IBC, TSH, CBC, ANEU, FT4, FERR, ADIFF, CMP, FE, VIDH, FT3 #### [address] [address] #### FOL, B12 #### [address] [address] Platelet mean volume (Bld) [Entitic vol] 9.7 fL Normal 7.4-10.4 [facility] ([place]) Comment on above: Performed By: #### G FR, LIPID, HFP, A1C, IBC, TSH, CBC, ANEU, FT4, FERR, ADIFF, CMP, FE, VIDH, FT3 #### [address] [address] #### FOL, B12 #### [address] [address] RBC 4.01 10 6/mcL Low 4.20-5.40 [facility] ([place]) Comment on above: Performed By: #### G FR, LIPID, HFP, A1C, IBC, TSH, CBC, ANEU, FT4, FERR, ADIFF, CMP, FE, VIDH, FT3 #### [address] [address] #### FOL, B12 #### [address] [address] WBC 10.8 10 3/mcL Normal 4.6-10.8 [facility] ([place]) Comment on above: Performed By: #### G FR, LIPID, HFP, A1C, IBC, TSH, CBC, ANEU, FT4, FERR, ADIFF, CMP, FE, VIDH, FT3 #### [address] [address] #### FOL, B12 #### [address] [address] Gel ABOon 03-30-2023 ABO/Rh Interp Positive Invalid Interpretation Code [facility] ([place]) Comment on above: Performed By: #### G FR, LIPID, HFP, A1C, IBC, TSH, CBC, ANEU, FT4, FERR, ADIFF, CMP, FE, VIDH, FT3 #### [address] [address] #### FOL, B12 #### [facility] [address] [place] [address] Gel ABSon 03-30-2023 Antibody Screen Gel Negative Normal [facility] [place] Comment on above: Performed By: #### G FR, LIPID, HFP, A1C, IBC, TSH, CBC, ANEU, FT4, FERR, ADIFF, CMP, FE, VIDH, FT3 #### [facility] [address] [place], [place] [address] #### FOL, B12 #### [facility] [address] [place] [address] LABORATORYOrdered By: Lilai Espinoza on 03-30-2023 ABO/Rh Interp Positive Invalid [...] (03/30/23 7:57 AM) Invalid Interpretation Code Non-Reactive [facility] Viro/Sero SS GBSPCRon 03-10-2023 Group B Strep (PCR) Negative Normal Negative [facility] [place] Comment on above: Performed By: #### G BSPCR #### [address] [address] Group B Strep PCR Int Normal [facility] ([place]) Comment on above: Result Comment: Grou p [...] Below Performed By: #### G BSPCR #### [place] [id number] RPRon 03-10-2023 Reagin Ab RPR Ql (S) Non-Reactive Normal Non-Reactive [facility] ([place]) Comment on above: Result Comment: The RPR [...] FERR, ADIFF, CMP, FE, VIDH, FT3 #### [address] [address] #### FOL, B12 #### [address] [address] .Auto Diffon 03-09-2023 Basophil, Absolute 0.0 10 3/mcL Normal 0.0-0.2 [facility] ([place]) Comment on above: Performed By: #### G FR, LIPID, HFP, A1C, IBC, TSH, CBC, ANEU, FT4, FERR, ADIFF, CMP, FE, VIDH, FT3 #### [address] [address] #### FOL, B12 #### [address] [address] Basophils/100 WBC (Bld) 0.2 % Normal 0.0-2.5 [facility] ([place]) Comment on above: Performed By: #### G FR, LIPID, HFP, A1C, IBC, TSH, CBC, ANEU, FT4, FERR, ADIFF, CMP, FE, VIDH, FT3 #### [address] [address] #### FOL, B12 #### [address] [address] Eosinophil, Absolute 0.0 10 3/mcL Normal 0.0-0.4 [facility] ([place]) Comment on above: Performed By: #### G FR, LIPID, HFP, A1C, IBC, TSH, CBC, ANEU, FT4, FERR, ADIFF, CMP, FE, VIDH, FT3 #### [address] [address] #### FOL, B12 #### [address] [address] Eosinophils/100 WBC (Bld) 0.3 % Normal 0.0-7.0 [facility] ([place]) Comment on above: Performed By: #### G FR, LIPID, HFP, A1C, IBC, TSH, CBC, ANEU, FT4, FERR, ADIFF, CMP, FE, VIDH, FT3 #### [address] [address] #### FOL, B12 #### [address] [address] Lymphocyte, Absolute 1.5 10 3/mcL Normal 0.8-3.9 [facility] ([place]) Comment on above: Performed By: #### G FR, LIPID, HFP, A1C, IBC, TSH, CBC, ANEU, FT4, FERR, ADIFF, CMP, FE, VIDH, FT3 #### [address] [address] #### FOL, B12 #### [address] [address] Lymphocytes/100 WBC (Bld) 15.8 % Normal 10.0-50.0 [facility] ([place]) Comment on above: Performed By: #### G FR, LIPID, HFP, A1C, IBC, TSH, CBC, ANEU, FT4, FERR, ADIFF, CMP, FE, VIDH, FT3 #### [address] [address] #### FOL, B12 #### [address] [address] Monocyte, Absolute 0.6 10 3/mcL Normal 0.2-1.0 [facility] ([place]) Comment on above: Performed By: #### G FR, LIPID, HFP, A1C, IBC, TSH, CBC, ANEU, FT4, FERR, ADIFF, CMP, FE, VIDH, FT3 #### [address] [address] #### FOL, B12 #### [address] [address] Monocytes/100 WBC (Bld) 6.6 % Normal 1.7-13.0 [facility] ([place]) Comment on above: Performed By: #### G FR, LIPID, HFP, A1C, IBC, TSH, CBC, ANEU, FT4, FERR, ADIFF, CMP, FE, VIDH, FT3 #### [address] [address] #### FOL, B12 #### [address] [address] Neutrophils/100 WBC (Bld) 77.1 % Normal 37.0-80.0 [facility] ([place]) Comment on above: Performed By: #### G FR, LIPID, HFP, A1C, IBC, TSH, CBC, ANEU, FT4, FERR, ADIFF, CMP, FE, VIDH, FT3 #### [address] [address] #### FOL, B12 #### [address] [address] .NEUABSon 03-09-2023 Neutrophil, Absolute 7.4 10 3/mcL High 2.9-6.2 [facility] ([place]) Comment on above: Performed By: #### G FR, LIPID, HFP, A1C, IBC, TSH, CBC, ANEU, FT4, FERR, ADIFF, CMP, FE, VIDH, FT3 #### [address] [address] #### FOL, B12 #### [address] [address] CBCon 03-09-2023 Erythrocyte distribution width (RBC) [Ratio] 13.9 % Normal 11.5-14.5 [facility] ([place]) Comment on above: Performed By: #### G FR, LIPID, HFP, A1C, IBC, TSH, CBC, ANEU, FT4, FERR, ADIFF, CMP, FE, VIDH, FT3 #### [address] [address] #### FOL, B12 #### [address] [address] Hematocrit (Bld) [Volume fraction] 36.3 % Low 37.0-47.0 [facility] ([place]) Comment on above: Performed By: #### G FR, LIPID, HFP, A1C, IBC, TSH, CBC, ANEU, FT4, FERR, ADIFF, CMP, FE, VIDH, FT3 #### [address] [address] #### FOL, B12 #### [place] [address] Hgb 12.6 G/dL Normal 12.0-16.0 [facility] ([place]) Comment on above: Performed By: #### G FR, LIPID, HFP, A1C, IBC, TSH, CBC, ANEU, FT4, FERR, ADIFF, CMP, FE, VIDH, FT3 #### [address] [address] #### FOL, B12 #### [address] [address] MCH (RBC) [Entitic mass] 32.4 pg High 27.0-31.2 [facility] ([place]) Comment on above: Performed By: #### G FR, LIPID, HFP, A1C, IBC, TSH, CBC, ANEU, FT4, FERR, ADIFF, CMP, FE, VIDH, FT3 #### [address] [address] #### FOL, B12 #### [address] [address] MCHC 34.7 G/dL Normal 33.0-37.0 [facility] ([place]) Comment on above: Performed By: #### G FR, LIPID, HFP, A1C, IBC, TSH, CBC, ANEU, FT4, FERR, ADIFF, CMP, FE, VIDH, FT3 #### [address] [address] #### FOL, B12 #### [address] [address] MCV (RBC) [Entitic vol] 93.3 fL Normal 80.0-94.0 [facility] ([place]) Comment on above: Performed By: #### G FR, LIPID, HFP, A1C, IBC, TSH, CBC, ANEU, FT4, FERR, ADIFF, CMP, FE, VIDH, FT3 #### [address] [address] #### FOL, B12 #### [place] [address] Platelet 171 10 3/mcL Normal 130-400 [facility] ([place]) Comment on above: Performed By: #### G FR, LIPID, HFP, A1C, IBC, TSH, CBC, ANEU, FT4, FERR, ADIFF, CMP, FE, VIDH, FT3 #### [address] [address] #### FOL, B12 #### [address] [address] Platelet mean volume (Bld) [Entitic vol] 8.5 fL Normal 7.4-10.4 [facility] ([place]) Comment on above: Performed By: #### G FR, LIPID, HFP, A1C, IBC, TSH, CBC, ANEU, FT4, FERR, ADIFF, CMP, FE, VIDH, FT3 #### [address] [address] #### FOL, B12 #### [place] [address] RBC 3.89 10 6/mcL Low 4.20-5.40 [facility] ([place]) Comment on above: Performed By: #### G FR, LIPID, HFP, A1C, IBC, TSH, CBC, ANEU, FT4, FERR, ADIFF, CMP, FE, VIDH, FT3 #### [place] [address] [place], [place] [address] #### FOL, B12 #### [facility] [address] [place] [address] WBC 9.7 10 3/mcL Normal 4.6-10.8 [facility] ([place]) Comment on above: Performed By: #### G FR, LIPID, HFP, A1C, IBC, TSH, CBC, ANEU, FT4, FERR, ADIFF, CMP, FE, VIDH, FT3 #### [facility] [address] [place], [place] [address] #### FOL, B12 #### [facility] [address] [place] [address] LABORATORYOrdered By: Isabella Eng on 03-09-2023 Group [...] SS AMNIon 03-06-2023 Amnisure Negative Normal Negative [facility] ([place]) Comment on above: Performed By: #### G FR, LIPID, HFP, A1C, IBC, TSH, CBC, ANEU, FT4, FERR, ADIFF, CMP, FE, VIDH, FT3 #### [place] [address] [place], [place] [address] #### FOL, B12 #### [address] [address] LABORATORYOrdered By: Lilia Espinoza on 05-27-2023 Wsdbm-[id number] .placental Ql (Vag fld) Negative (03/06/23 5:57 [...] 11-12-2022 CNCO Letter Text Normal [facility] Bacteria Ur Culton 3 Bacteria identified Cx Nom (U) CULTURE, URINE: <10,000 CFU/ml Normal Urogenital Den Normal [facility] Comment on above: Performed By: #### 6 30-4 #### [facility] CLIA [id number] [address] ED NOTEon 10-29-2022 ED NOTE HNO ID: [id number] Author: Martinez Crouch RN Service: ? Author Type: Registered Nurse Type: ED Notes Filed: 10/28/2022 10:37 PM Note Text: Bed: 26-ED Expected date: Expected time: Means of arrival: Comments: triage Normal [facility] ED PROV NOTEon 10-29-2022 ED PROV NOTE HNO ID: [id number] Author: Danitza Reis DO Service: Emergency Medicine [...] BABS Medina CHRISTINA M 10/29/22 0323 Normal [facility] ED PROV NOTE HNO ID: [id number] Author: Danitza Reis DO Service: Emergency Medicine [...] was dehydrated. She follows with OB at [facility] in [place]. complicated by hyperemesis gravidarum and bleeding in [...] sign, Rovsing (more content not included)... Normal [facility] EKGon 10-29-2022 Electrocardiogram Ventricular Rate : 129 BPM Atrial Rate : 129 BPM P-R Interval : 130 ms QRS Duration : 70 ms Q-T Interval : 300 ms QTC Calculation(Bazett) : 439 ms Calculated P [place] : 31 degrees Calculated R [place] : 66 degrees Calculated T [place] : -[address] & T WAVE ABNORMALITY, CONSIDER INFERIOR ISCHEMIA ST & T WAVE ABNORMALITY, CONSIDER ANTEROLATERAL ISCHEMIA ABNORMAL ECG WHEN COMPARED WITH ECG OF 31-MAY-2022 13:06, VENT. RATE HAS INCREASED BY 58 BPM T WAVE INVERSION NOW EVIDENT IN INFERIOR LEADS INVERTED T WAVES HAVE REPLACED NONSPECIFIC T WAVE ABNORMALITY IN ANTEROLATERAL LEADS Confirmed by DO REIS CHRISTINA ([id number]) on 10/29/2022 1:44:37 AM NAME : LUZ OLIVEIRA PID : [id number] : 2000 Gender : Female Race : [...] ANTEROLATERAL LEADS Confirmed by DO REIS CHRISTINA ([id number]) on 10/29/2022 1:44:37 AM Test Reason : Location : 4 : [place] [address] Overread By : DO REIS CHRISTINA Edited By : DO REIS CHRISTINA Referred By : , Acquired by : KASHIF JOHNSON Normal [facility] Urinalysis complete panel (U )on 10-29-2022 Bacteria LM.HPF (Urine sed) [#/Area] Few Abnormal None Seen [facility] Comment on above: Order Comment: Speci men Type: URINE SPECIMENOrdering Facility: [facility] Address: [address] [place] [address] Performed By: #### 2 4356-8 ####[facility] LABORATORYCLIA [id number] [address] [place] Bilirubin Ql (U) Negative Normal Negative [facility] Comment on above: Order Comment: Speci men Type: URINE SPECIMENOrdering Facility: [facility] Address: [address] [place] [address] Performed By: #### 2 4356-8 ####[facility] LABORATORYCLIA [id number] [address] [place] Clarity (Unsp spec) Turbid Abnormal Clear [facility] Comment on above: Order Comment: Speci men Type: URINE SPECIMENOrdering Facility: [facility] Address: [address] [place] [address] Performed By: #### 2 4356-8 ####[facility] LABORATORYCLIA [id number] [address] Color (U) Yellow Normal yellow [facility] Comment on above: Order Comment: Speci men Type: URINE SPECIMENOrdering Facility: [facility] Address: [address] [place] [address] Performed By: #### 2 4356-8 ####[facility]ORATORYCLIA [id number] [address] Epithelial cells LM.HPF (Urine sed) [#/Area] Few Normal [facility] Comment on above: Order Comment: Speci men Type: URINE SPECIMENOrdering Facility: [facility] Address: [address] [place] [address] Performed By: #### 2 4356-8 ####[facility] LABORATORYCLIA [id number] [address] Glucose Test strip (U) [Mass/Vol] Negative Normal Trace, Negative [facility] Comment on above: Order Comment: Speci men Type: URINE SPECIMENOrdering Facility: [facility] Address: [address] [place] [address] Performed By: #### 2 4356-8 ####[facility] LABORATORYCLIA [id number] [address] Hemoglobin Ql (U) 1+ Abnormal Negative, Trace [facility] Comment on above: Order Comment: Speci men Type: URINE SPECIMENOrdering Facility: [facility] Address: [address] [place] [address] Performed By: #### 2 4356-8 ####[facility] LABORATORYCLIA [id number] [address] Ketones Ql (U) 4+ Abnormal Negative, Trace [facility] Comment on above: Order Comment: Speci men Type: URINE SPECIMENOrdering Facility: [facility] Address: [address] [place] [address] Performed By: #### 2 4356-8 ####[facility] LABORATORYCLIA [id number] [address] Leukocyte esterase Test strip Ql (U) 25 Misti/mL Normal Negative, 25 Misti/mL [facility] Comment on above: Order Comment: Speci men Type: URINE SPECIMENOrdering Facility: [facility] Address: [address] [place] [address] Performed By: #### 2 4356-8 ####[facility] LABORATORYCLIA [id number] [address] Nitrite Ql (U) Negative Normal Negative [facility] Comment on above: Order Comment: Speci men Type: URINE SPECIMENOrdering Facility: [facility] Address: [address] [place] [address] Performed By: #### 2 4356-8 ####[facility] LABORATORYCLIA [id number] [address] pH (U) 6.0 [pH] Normal 5.0-8.0 [facility] Comment on above: Order Comment: Speci men Type: URINE SPECIMENOrdering Facility: [facility] Address: [address] [place] [address] Performed By: #### 2 4356-8 ####[facility] LABORATORYCLIA [id number] [address] Protein (U) [Mass/Vol] 1+ Abnormal Trace, Negative [facility] Comment on above: Order Comment: Speci men Type: URINE SPECIMENOrdering Facility: [facility] Address: [address] [place] [address] Performed By: #### 2 4356-8 ####[facility] LABORATORYCLIA [id number] [address] RBC LM.HPF (Urine sed) [#/Area] 6-10 /HPF Abnormal 0-3 /HPF [facility] Comment on above: Order Comment: Speci men Type: URINE SPECIMENOrdering Facility: [facility] Address: [address] [place] [address] Performed By: #### 2 4356-8 ####[facility] LABORATORYCLIA [id number] [address] Specific gravity (U) [Rel density] 1.029 Normal 1.005-1.030 [facility] Comment on above: Order Comment: Speci men Type: URINE SPECIMENOrdering Facility: [facility] Address: [address] [place] [address] Performed By: #### 2 4356-8 ####[facility] LABORATORYCLIA [id number] [address] Urobilinogen Ql (U) Normal Normal Negative [facility] Comment on above: Order Comment: Speci men Type: URINE SPECIMENOrdering Facility: [facility] Address: [address] [place] [address] Performed By: #### 2 4356-8 ####[facility] LABORATORYCLIA [id number] [address] [place] WBC LM.HPF (Urine sed) [#/Area] 0-5 /HPF Normal 0-5 /HPF [facility] Comment on above: Order Comment: Speci men Type: URINE SPECIMENOrdering Facility: [facility] Address: [address] [place] [address] Performed By: #### 2 4356-8 ####[facility] LABORATORYCLIA [id number] [address] STATES OF [facility] Basic metabolic 2000 panelon 10-28-2022 Anion gap [Moles/Vol] 15 mmol/L Normal 9-18 [facility] Comment on above: Order Comment: Speci men Type: BLOOD SPECIMENOrdering Facility: [facility] Address: [address] [place] [address] Performed By: #### 2 4321-2, 82527-4 ####[facility] LABORATORYCLIA [id number] [address] [place] Calcium [Mass/Vol] 10.1 mg/dL Normal 8.5-10.2 [facility] Comment on above: Order Comment: Speci men Type: BLOOD SPECIMENOrdering Facility: [facility] Address: [address] [place] [address] Performed By: #### 2 4321-2, ####[facility] LABORATORYCLIA [id number] [address] [place] Chloride [Moles/Vol] 102 mmol/L Normal 97-105 [facility] Comment on above: Order Comment: Speci men Type: BLOOD SPECIMENOrdering Facility: [facility] Address: [address] [place] [address] Performed By: #### 2 2, ####[facility] LABORATORYCLIA [id number] [address] STATES OF [facility] CO2 [Moles/Vol] 22 mmol/L Normal 22-30 [facility] Comment on above: Order Comment: Speci men Type: BLOOD SPECIMENOrdering Facility: [facility] Address: [address] [place] [address] Performed By: #### 2 4320-11, ####[facility] [id number] [address] Creatinine [Mass/Vol] 0.61 mg/dL Normal 0.58-0.96 [facility] Comment on above: Order Comment: Speci men Type: BLOOD SPECIMENOrdering Facility: [facility] Address: [address] [place] [address] Performed By: #### 2 4320-11, ####[facility]ITALIA [id number] [address] ESTIMATED GLOMERULAR FILTRATION RATE 129 mL/min/1.73m??? Normal >=60 [facility] Comment on above: Order Comment: Speci men Type: BLOOD SPECIMENOrdering Facility: [facility] Address: [address] [place] [address] Result Comment: Tierra mated Glomerular Filtration Rate [...] actual GFR. Performed By: #### 2 4320-2, ####[facility] LABORATORYCLIA [id number] [place] [address] [place] Glucose [Mass/Vol] 86 mg/dL Normal 74-99 [facility] Comment on above: Order Comment: Speci men Type: BLOOD SPECIMENOrdering Facility: [facility] Address: [address] [place] [address] Result Comment: The [place] [employer] (ADA) provides guidance for cutoff [...] Standards of Medical Care in Diabetes 2016, [place] [employer]. Diabetes Care. 2016.39(Suppl 1). Performed By: #### 2 4320-11, ####[facility] LABORATORYCLIA [id number] [place] [address] [place] Potassium [Moles/Vol] 3.2 mmol/L Low 3.7-5.1 [facility] Comment on above: Order Comment: Eloise lopez Type: BLOOD SPECIMENOrdering Facility: [facility] Address: [place] [address] Performed By: #### 2 4320-11, ####[facility] LABORATORYCLIA [id number] [place] [address] [place] Sodium [Moles/Vol] 139 mmol/L Normal 136-144 [facility] Comment on above: Order Comment: Speci jessica Type: BLOOD SPECIMENOrdering Facility: [facility] Address: [address] [place] [address] Performed By: #### 2 4320-11, ####[facility] LABORATORYCLIA [id number] [place] [address] [place] Urea nitrogen [Mass/Vol] 5 mg/dL Low 7-21 [facility] Comment on above: Order Comment: Speci men Type: BLOOD SPECIMENOrdering Facility: [facility] Address: [address] [place] [address] Performed By: #### 2 4321-2, 46621-7 ####[facility] LABORATORYCLIA [id number] [place] [address] [place] CBC W Auto Differential pane l (Bld)on 10-28-2022 Basophils (Bld) [#/Vol] 10*3/uL Normal <0.11 [facility] Comment on above: Order Comment: Speci men Type: BLOOD SPECIMENOrdering Facility: [facility] Address: [address] [place] [address] Performed By: #### 5 7021-8 ####[facility] LABORATORYCLIA [id number] [place] [address] [place] Basophils/100 WBC (Bld) 0.1 % Normal [facility] Comment on above: Order Comment: Speci men Type: BLOOD SPECIMENOrdering Facility: [facility] Address: [address] [place] [address] Performed By: #### 5 7021-8 ####[facility] LABORATORYCLIA [id number] [address] [place] Differential cell count method Nom (Bld) Auto Normal [facility] Comment on above: Order Comment: Speci men Type: BLOOD SPECIMENOrdering Facility: [facility] Address: [address] [place] [address] Performed By: #### 5 7021-8 ####[facility] LABORATORYCLIA [id number] [place] [address] [place] Eosinophils (Bld) [#/Vol] 10*3/uL Normal <0.46 [facility] Comment on above: Order Comment: Speci men Type: BLOOD SPECIMENOrdering Facility: [facility] Address: [address] [place] [address] Performed By: #### 5 7021-8 ####[facility]ATORYCLIA [id number] [address] Eosinophils/100 WBC (Bld) 0.1 % Normal [facility] Comment on above: Order Comment: Speci men Type: BLOOD SPECIMENOrdering Facility: [facility] Address: [address] [place] [address] Performed By: #### 5 7021-8 ####[facility] LABORATORYCLIA [id number] [address] [place] Erythrocyte distribution width (RBC) [Ratio] 13.8 % Normal 11.5-15.0 [facility] Comment on above: Order Comment: Speci men Type: BLOOD SPECIMENOrdering Facility: [facility] Address: [address] [place] [address] Performed By: #### 5 7021-8 ####[facility] LABORATORYCLIA [id number] [address] [place] Hematocrit (Bld) [Volume fraction] 38.2 % Normal 36.0-46.0 [facility] Comment on above: Order Comment: Speci men Type: BLOOD SPECIMENOrdering Facility: [facility] Address: [address] [place] [address] Performed By: #### 5 7021-8 ####[facility] LABORATORYCLIA [id number] [address] [place] Hemoglobin (Bld) [Mass/Vol] 13.5 g/dL Normal 11.5-15.5 [facility] Comment on above: Order Comment: Speci men Type: BLOOD SPECIMENOrdering Facility: [facility] Address: [address] [place] [address] Performed By: #### 5 7021-8 ####[facility]ORATORYCLIA [id number] [address] [place] Immature granulocytes (Bld) [#/Vol] 0.04 10*3/uL Normal <0.10 [facility] Comment on above: Order Comment: Speci men Type: BLOOD SPECIMENOrdering Facility: [facility] Address: [address] [place] [address] Performed By: #### 5 7021-8 ####[facility] LABORATORYCLIA [id number] [address] Immature granulocytes/100 WBC (Bld) 0.5 % Normal [facility] Comment on above: Order Comment: Speci men Type: BLOOD SPECIMENOrdering Facility: [facility] Address: [address] [place] [address] Performed By: #### 5 7021-8 ####[facility] LABORATORYCLIA [id number] [address] [facility] Lymphocytes (Bld) [#/Vol] 1.53 10*3/uL Normal 1.00-4.00 [facility] Comment on above: Order Comment: Speci men Type: BLOOD SPECIMENOrdering Facility: [facility] Address: [address] [place] [address] Performed By: #### 5 7021-8 ####[facility] LABORATORYCLIA [id number] [address] Lymphocytes/100 WBC (Bld) 18.8 % Normal [facility] Comment on above: Order Comment: Speci men Type: BLOOD SPECIMENOrdering Facility: [facility] Address: [address] [place] [address] Performed By: #### 5 7021-8 ####[facility] LABORATORYCLIA [id number] [address] MCH (RBC) [Entitic mass] 31.6 pg Normal 26.0-34.0 [facility] Comment on above: Order Comment: Speci men Type: BLOOD SPECIMENOrdering Facility: [facility] Address: [address] [place] [address] Performed By: #### 5 7021-8 ####[facility] LABORATORYCLIA [id number] [address] STATES OF [facility] MCHC (RBC) [Mass/Vol] 35.3 g/dL Normal 30.5-36.0 [facility] Comment on above: Order Comment: Speci men Type: BLOOD SPECIMENOrdering Facility: [facility] Address: [address] [place] [address] Performed By: #### 5 7021-8 ####[facility] LABORATORYCLIA [id number] [address] OF [place] MCV (RBC) [Entitic vol] 89.5 fL Normal 80.0-100.0 [facility] Comment on above: Order Comment: Speci men Type: BLOOD SPECIMENOrdering Facility: [facility] Address: [address] [place] [address] Performed By: #### 5 7021-8 ####[facility] LABORATORYCLIA [id number] [address] STATES [place] Monocytes (Bld) [#/Vol] 0.51 10*3/uL Normal <0.87 [facility] Comment on above: Order Comment: Speci men Type: BLOOD SPECIMENOrdering Facility: [facility] Address: [address] [place] [address] Performed By: #### 5 7021-8 ####[facility] LABORATORYCLIA [id number] [address] STATES [place] Monocytes/100 WBC (Bld) 6.3 % Normal [facility] Comment on above: Order Comment: Speci men Type: BLOOD SPECIMENOrdering Facility: [facility] Address: [address] [place] [address] Performed By: #### 5 7021-8 ####[facility] LABORATORYCLIA [id number] [address] STATES [place] Neutrophils (Bld) [#/Vol] 6.06 10*3/uL Normal 1.45-7.50 [facility] Comment on above: Order Comment: Speci men Type: BLOOD SPECIMENOrdering Facility: [facility] Address: [address] [place] [address] Performed By: #### 5 7021-8 ####[facility] LABORATORYCLIA [id number] [place] [address] [place] Neutrophils/100 WBC (Bld) 74.2 % Normal [facility] Comment on above: Order Comment: Speci men Type: BLOOD SPECIMENOrdering Facility: [facility] Address: [address] [address] Performed By: #### 5 7021-8 ####[facility] LABORATORYCLIA [id number] [address] STATES OF [place] Nucleated RBC (Bld) [#/Vol] 10*3/uL Normal <0.01 [facility] Comment on above: Order Comment: Speci men Type: BLOOD SPECIMENOrdering Facility: [facility] Address: [address] [address] Performed By: #### 5 7021-8 ####[facility] LABORATORYCLIA [id number] [address] STATES [place] Nucleated RBC/100 WBC (Bld) [Ratio] 0.0 /100 WBC Normal [facility] Comment on above: Order Comment: Speci men Type: BLOOD SPECIMENOrdering Facility: [facility] Address: [address] [address] Performed By: #### 5 7021-8 ####[facility] LABORATORYCLIA [id number] [address] STATES [place] Platelet mean volume (Bld) [Entitic vol] 10.2 fL Normal 9.0-12.7 [facility] Comment on above: Order Comment: Speci men Type: BLOOD SPECIMENOrdering Facility: [facility] Address: [address] [address] Performed By: #### 5 7021-8 ####[facility] LABORATORYCLIA [id number] [place] [address] [place] Platelets (Bld) [#/Vol] 191 10*3/uL Normal 150-400 [facility] Comment on above: Order Comment: Speci men Type: BLOOD SPECIMENOrdering Facility: [facility] Address: [address] [address] Performed By: #### 5 7021-8 ####[facility] LABORATORYCLIA [id number] [address] RBC (Bld) [#/Vol] 4.27 10*6/uL Normal 3.90-5.20 [facility] Comment on above: Order Comment: Speci men Type: BLOOD SPECIMENOrdering Facility: [facility] Address: [address] [place] [address] Performed By: #### 5 7021-8 ####[facility] LABORATORYCLIA [id number] [address] WBC (Bld) [#/Vol] 8.16 10*3/uL Normal 3.70-11.00 [facility] Comment on above: Order Comment: Speci men Type: BLOOD SPECIMENOrdering Facility: [facility] Address: [address] [place] [address] Performed By: #### 5 7021-8 ####[facility] LABORATORYCLIA [id number] [address] ED Triage Noteon 10-28-2022 ED Triage Note HNO ID: [id number] Author: Dax Stevenson APRN.PHARMACY INNOVATION ASSISTANT Service: Emergency Medicine Author Type: Nurse [...] CBC CMP EKG Urinalysis SIGNATURE: Dax Stevenson APRN.PHARMACY INNOVATION ASSISTANT Normal [facility] Magnesium SerPl-mCncon 10-28 Magnesium [Mass/Vol] 1.8 mg/dL Normal 1.7-2.3 [facility] Comment on above: Order Comment: Speci men Type: BLOOD SPECIMENOrdering Facility: [facility] Address: [address] [address] Performed By: #### 2 4321-2, 69521-7 ####[facility] LABORATORYCLIA [id number] [place] [address] [place] URINE OB DIP B/Oon 3 Glucose Ql (U) Negative Neg mg/dL [facility] Protein.monoclonal (U) [Mass/Vol] TRACE Abnormal Neg mg/dL [facility] CNCOon 08-21-2022 CNCO Letter Text Normal [facility] Bacteria Ur Culton 2 Bacteria identified Cx Nom (U) ORGANISM ID: 1 50,000-<100,000 CFU/ml Normal urogenital den Normal [facility] Comment on above: Performed By: #### 7 3752-8, 50086-7, 52032-0 #### [facility] CLIA [id number] [address] [place] [address] [place] C. trachomatis+N. gonorrhoea e DNA CHICHO+probe Ql (Unsp spec)on 08-19-2022 C. trachomatis DNA CHICHO+probe Ql (Unsp spec) Negative Normal Negative for Chlamydia trachomatis by amplificaton [facility] Comment on above: Order Comment: Speci men Type: SWAB [facility] Address: [address] [address] Performed By: #### 3 6902-5 #### [facility] CLIA [id number] [address] [place] [address] [place] N. gonorrhoeae DNA CHICHO+probe Ql (Unsp spec) Negative Normal Negative for Neisseria gonorrhoeae by amplification [facility] Comment on above: Order Comment: Speci men Type: SWAB [facility] Address: [address] [address] Performed By: #### 3 6902-5 #### [facility] CLIA [id number] [facility] [place] [address] [place] CBC panel Auto (Bld)on 08-19 Erythrocyte distribution width (RBC) [Ratio] 12.4 % Normal 11.5-15.0 [facility] Comment on above: Order Comment: Speci men Type: BLOOD SPECIMEN [facility] Address: [address] [place] [address] Performed By: #### 7 3752-8, 16537-0, 95462-6 #### [facility] CLIA [id number] [address] [place] [address] [place] Hematocrit (Bld) [Volume fraction] 40.5 % Normal 36.0-46.0 [facility] Comment on above: Order Comment: Speci men Type: BLOOD SPECIMEN [facility] Address: [address] [place] [address] Performed By: #### 7 3752-8, 90854-6, 57031-2 #### [facility] CLIA [id number] [address] [place] [address] [place] Hemoglobin (Bld) [Mass/Vol] 13.6 g/dL Normal 11.5-15.5 [facility] Comment on above: Order Comment: Speci men Type: BLOOD SPECIMEN [facility] Address: [address] [place] [address] Performed By: #### 7 3752-8, 71001-6, 16127-2 #### [facility] CLIA [id number] [address] [place] [address] [place] MCH (RBC) [Entitic mass] 30.8 pg Normal 26.0-34.0 [facility] Comment on above: Order Comment: Speci men Type: BLOOD SPECIMEN [facility] Address: [address] [place] [address] Performed By: #### 7 3752-8, 14462-0, 29000-5 #### [facility] CLIA [id number] [facility] [place] [address] [place] MCHC (RBC) [Mass/Vol] 33.6 g/dL Normal 30.5-36.0 [facility] Comment on above: Order Comment: Speci men Type: BLOOD SPECIMEN [facility] Address: [address] [place], [place] [address] Performed By: #### 7 3752-8, 29355-3, 81786-2 #### [facility] CLIA [id number] [address] [place] [address] [place] MCV (RBC) [Entitic vol] 91.8 fL Normal 80.0-100.0 [facility] Comment on above: Order Comment: Speci men Type: BLOOD SPECIMEN [facility] Address: [address] [place] [address] Performed By: #### 7 3752-8, 45944-3, 02950-2 #### [facility] CLIA [id number] [address] [place] [address] [place] Nucleated RBC (Bld) [#/Vol] 10*3/uL Normal <0.01 [facility] Comment on above: Order Comment: Speci men Type: BLOOD SPECIMEN [facility] Address: [address] [place], [place] [address] Performed By: #### 7 3752-8, 11936-9, 72684-8 #### [facility] CLIA [id number] [address] [place] [address] [place] Platelet mean volume (Bld) [Entitic vol] 10.5 fL Normal 9.0-12.7 [facility] Comment on above: Order Comment: Speci men Type: BLOOD SPECIMEN [facility] Address: [address] [place], [place] [address] Performed By: #### 7 3752-8, 60997-6, 03311-0 #### [facility] CLIA [id number] [address] [place] [address] [place] Platelets (Bld) [#/Vol] 247 10*3/uL Normal 150-400 [facility] Comment on above: Order Comment: Speci men Type: BLOOD SPECIMEN [facility] Address: [address] [place] [address] Performed By: #### 7 3752-8, 09594-7, 69071-5 #### [facility] CLIA [id number] [address] [place] [address] [place] RBC (Bld) [#/Vol] 4.41 10*6/uL Normal 3.90-5.20 [facility] Comment on above: Order Comment: Speci men Type: BLOOD SPECIMEN [facility] Address: [address] [place] [address] Performed By: #### 7 3752-8, 12806-0, 06197-8 #### [facility] CLIA [id number] [address] [place] [address] [place] WBC (Bld) [#/Vol] 7.20 10*3/uL Normal 3.70-11.00 [facility] Comment on above: Order Comment: Speci men Type: BLOOD SPECIMEN [facility] Address: [address] [place] [address] Performed By: #### 7 3752-8, 99260-2, 85935-3 #### [facility] CLIA [id number] [address] [place] [address] [place] Erythrocyte distribution width (RBC) [Ratio] 12.4 % 11.5 - 15.0 % [facility] Hematocrit (Bld) [Volume fraction] 40.5 % 36.0 - 46.0 % [facility] Hemoglobin (Bld) [Mass/Vol] 13.6 g/dL 11.5 - 15.5 g/dL [facility] MCH (RBC) [Entitic mass] 30.8 pg 26.0 - 34.0 pg [facility] MCHC (RBC) [Mass/Vol] 33.6 g/dL 30.5 - 36.0 g/dL [facility] MCV (RBC) [Entitic vol] 91.8 fL 80.0 - 100.0 fL [facility] Nucleated RBC (Bld) [#/Vol] <0.01 k/uL [facility] Platelet mean volume (Bld) [Entitic vol] 10.5 fL 9.0 - 12.7 fL [facility] Platelets (Bld) [#/Vol] 247 10*3/uL 150 - 400 k/uL [facility] RBC (Bld) [#/Vol] 4.41 10*6/uL 3.90 - 5.2 0 m/uL [facility] WBC (Bld) [#/Vol] 7.20 10*3/uL 3.70 - 11. 00 k/uL [facility] HBV surface Ab IA Ql (S)on 10-19-2021 HBV surface Ag Ql (S) Negative Normal Negative [facility] Comment on above: Order Comment: Eloise lopez Type: BLOOD SPECIMEN [facility] Address: [address] [place] [address] Performed By: #### 7 3752-8, 18891-4, 17309-5 #### [facility] CLIA [id number] [address] [place] [address] OF [facility] HCV Ab Ser Qlon 08-19-2022 HCV Ab Ql (S) Negative Normal Negative [facility] Comment on above: Order Comment: Eloise lopez Type: BLOOD SPECIMEN [facility] Address: [address] [place] [address] Result Comment: The result suggests no evidence of active infection with Hepatitis C virus. Should recent infection be suspected, repeat testing may be considered 4-6 weeks after this draw. Performed By: #### 7 3752-8, 05312-7, 04189-4 #### [facility] CLIA [id number] [address] [place] [address] [place] HIV 1+2 Ab IA Qlon 2 HIV 1 and 2 Ab IA.rapid Nom Normal [facility] Comment on above: Order Comment: Speci men Type: BLOOD SPECIMEN [facility] Address: [address] [place] [address] Result Comment: Test not indicated. Performed By: #### 7 3752-8, , #### [facility] CLIA [id number] [address] [place] [address] [place] HIV 1+2 Ab+HIV1 p24 Ag IA Ql Non-Reactive Normal Nonreactive [facility] Comment on above: Order Comment: Speci men Type: BLOOD SPECIMEN [facility] Address: [address] [place] [address] Performed By: #### 7 3752-8, , #### [facility] CLIA [id number] [address] [place] [address] [place] HIVINT Normal [facility] Comment on above: Order Comment: Speci men Type: BLOOD SPECIMEN [facility] Address: [address] [place] [address] Result Comment: No e vidence of HIV-1 or HIV-2 infection. Should recent infection be suspected, repeat testing may be considered 2-3 weeks after this draw. [place] Rev. Code 3701.243(E): This information has been [...] Performed By: #### 7 3752-8, , #### [facility] CLIA [id number] [address] [place] [address] [place] No Panel Informationon 08-19 [facility] PAP FLUID CERVICAL SCREENING on 08-19-2022 CASE REPORT Normal [facility] Comment on above: Order Comment: Speci men Type: FLUID SPECIMEN [facility] Address: [address] [place], [place] [address] Result Comment: Gyne cologic Cytology Report Case: [id number] Authorizing Provider: Braulio Hollingsworth MD Collected: 08/19/2022 02:46 PM Ordering Location: Obstetrics/Gynecology Received: 08/20/2022 12:38 PM First Screen: Shelby Umaña, CT, ASCP Rescreen: Wandy Fraser, CT, ASCP Specimen: Pap, [employer] Internship, Screening, CERVICAL SCREENING FLUID Performed By: #### L [id number] #### [facility] CLIA [id number] [address] [place] [address] [place] CLINICAL HISTORY ABNORMAL PAP[LGSIL i n 2020 in [place] Normal [facility] Comment on above: Order Comment: Speci men Type: FLUID SPECIMEN [facility] Address: [address] [place] [address] Performed By: #### L [id number] #### [facility] CLIA [id number] [facility] [place] [address] [place] CYTOLOGY INTERPRETATION PAP Normal [facility] Comment on above: Order Comment: Speci men Type: FLUID SPECIMEN [facility] Address: [address] [place] [address] Result Comment: Nega tive for Intraepithelial lesion or malignancy. Performed By: #### L [id number] #### [facility] CLIA [id number] [address] STATES [place] FINAL DIAGNOSIS Normal [facility] Comment on above: Order Comment: Speci men Type: FLUID SPECIMEN [facility] Address: [address] [place] [address] Result Comment: A - CERVICAL SCREENING FLUID Satisfactory for interpretation, Excess blood Negative for Intraepithelial lesion or malignancy. Performed By: #### L [id number] #### [facility] CLIA [id number] [address] [place] [address] [place] FINAL PERFORMING LAB Normal [facility] Comment on above: Order Comment: Speci men Type: FLUID SPECIMEN [facility] Address: [address] Result Comment: Tech nical component, claims consultant screening performed at [facility], [address] [facility] [place] [address] CLIA# [id number] Diagnostic interpretation performed at [facility], [facility] [address] CLIA# [id number] [employer] Supervisor: Adam Farah M.D. Performed By: #### L [id number] #### [facility] CLIA [id number] [address] [place] [address] [place] GROSS DESCRIPTION Normal [facility] Comment on above: Order Comment: Speci men Type: FLUID SPECIMEN [facility] Address: [address] Result Comment: A. C ERVICAL SCREENING FLUID Glacial Acetic Acid added. Performed By: #### L [id number] #### [facility] CLIA [id number] [address] [place] [address] [place] HPV REQUESTED? Yes, Reflex HPV for ASCUS Normal [facility] Comment on above: Order Comment: Speci men Type: FLUID SPECIMEN [facility] Address: [address] [place] [address] Performed By: #### L [id number] #### [facility] CLIA [id number] [facility] [place] [address] [place] LMP 06/21/2022() Normal [facility] Comment on above: Order Comment: Speci men Type: FLUID SPECIMEN [facility] Address: [address] [place] [address] Performed By: #### L [id number] #### [facility] CLIA [id number] [address] [place] [address] PAP DISCLAIMER COMMENT The Pap Smear is a screening test for cervical cancer. False negative results occur with all screening tests, emphasizing the need for rescreening at recommended intervals, and clinical correlation. Normal [facility] Comment on above: Order Comment: Speci men Type: FLUID SPECIMEN [facility] Address: [address] [place] [address] Performed By: #### L [id number] #### [facility] CLIA [id number] [address] [place] [address] PAP JIG WORKER COMMENT This specimen has been analyzed by the ThinPrep Imaging System, an automated imaging and review system, which assists the laboratory in evaluating cells on ThinPrep Pap tests. Following automated imaging, selected francis from every slide are reviewed by a claims consultant. Normal [facility] Comment on above: Order Comment: Speci men Type: FLUID SPECIMEN [facility] Address: [address] [place] [address] Performed By: #### L [id number] #### [facility] CLIA [id number] [address] [place] [address] [place] RUBELLA IGG ABon 08-19-2022 RUBELLA IGG AB, QUAL Positive Normal Positive [facility] Comment on above: Order Comment: Speci men Type: BLOOD SPECIMEN [facility] Address: [address] [place] [address] Result Comment: The result suggests recent or past exposure to Rubella virus or history of Rubella vaccination. Positive result may also be seen due to presence of passively-transferred antibodies. Please correlate with patient's history. Performed By: #### 7 3752-8, 58233-2, 62874-8 #### [facility] CLIA [id number] [address] [place] [address] [place] Reagin and Treponema pallidu m IgG and IgM [Interp]on 08-19-2022 SYPHILIS INTERPRETATION Cannot exclude recent Treponemal infection if specimen collected within 7-10 days after appearance of suspect lesions or 2-3 weeks after an exposure. Clinical correlation is required. Normal [facility] Comment on above: Order Comment: Speci men Type: BLOOD SPECIMEN [facility] Address: [address] [place] [address] Performed By: #### 7 3752-8, 76286-2, 71438-6 #### [facility] CLIA [id number] [address] [place] [address] [place] T. pallidum IgG+IgM IA Ql (S) Non-Reactive Normal Nonreactive [facility] Comment on above: Order Comment: Speci men Type: BLOOD SPECIMEN [facility] Address: [address] [place], [place] [address] Performed By: #### 7 3752-8, 48807-0, 92161-0 #### [facility] CLIA [id number] [address] [place] [address] [place] TSH BLDon 08-19-2022 TSH Qn 1.190 m[IU]/L 0.270 - 4.200 mIU/L [facility] TSH SerPl-aCncon 08-19-2022 TSH Qn 1.190 m[IU]/L Normal 0.270-4.200 [facility] Comment on above: Order Comment: Speci men Type: BLOOD SPECIMEN [facility] Address: [address] [place], [place] [address] Result Comment: If t he patient is , TSH reference range varies by gestational period: First Trimester (weeks 9-12): 0.180-2.990 mIU/L Second Trimester: 0.110-3.980 mIU/L Third Trimester: 0.480-4.710 mIU/L Rafiq Winston et al. A Practical Approach for the Verifications and Determination of Site- and Trimester-Specific Reference Intervals for Thyroid Function tests in . Thyroid, 2019:29:3:412-420. William E, et al. 2017 Guidelines of the [place] [employer] for the Diagnosis and Management of Thyroid Disease during and the . Thyroid, 2017:27:3:315-389. Performed By: #### 3 016-3 #### [facility] CLIA [id number] [address] OF [facility] TYPE + SCREEN PRENATALon ABO O [facility] HIstorical Ab Scr Status Negative [facility] Rh Nom (Bld) Positive [facility] Type and Screen Expiration 08/22/2022 23:59 [facility] ABO O Normal [facility] Comment on above: Order Comment: Speci men Type: BLOOD SPECIMEN [facility] Address: [address] [place] [address] Performed By: #### T SPN #### [facility] CLIA [id number] [address] HISTORICAL AB SCR STATUS Negative Normal [facility] Comment on above: Order Comment: Speci men Type: BLOOD SPECIMEN [facility] Address: [address] [place] [address] Performed By: #### T SPN #### [facility] CLIA [id number] [address] Rh Nom (Bld) Positive Normal [facility] Comment on above: Order Comment: Speci men Type: BLOOD SPECIMEN [facility] Address: [address] [place] [address] Performed By: #### T SPN #### [facility] CLIA [id number] [address] TYPE AND SCREEN EXPIRATION 08/22/2022 23:59 Normal [facility] Comment on above: Order Comment: Speci men Type: BLOOD SPECIMEN [facility] Address: [address] [address] Performed By: #### T SPN #### [facility] CLIA [id number] [address] URINE OB DIP B/Oon 2 Glucose Ql (U) Negative Neg mg/dL [facility] Protein.monoclonal (U) [Mass/Vol] Negative Neg mg/dL [facility] [facility]M BLOOD TYPEon 022 ABO O Normal [facility] Comment on above: Order Comment: Speci men Type: BLOOD SPECIMEN [facility] Address: [address] [address] Performed By: #### C ONABO #### [facility] [place] [id number] [address] Rh Nom (Bld) Positive Normal [facility] Comment on above: Order Comment: Speci men Type: BLOOD SPECIMEN [facility] Address: [address] [place] [address] Performed By: #### C ONABO #### [facility] [place] [id number] [address] ED Triage Noteon 08-14-2022 ED Triage Note HNO ID: [id number] Author: Kaushik Justice APRN.PHARMACY INNOVATION ASSISTANT Service: Emergency Medicine Author Type: Nurse [...] a week. She was previously seen at [facility] where she states she had an [...] positive send OB triage SIGNATURE: Kaushik Justice APRN.PHARMACY INNOVATION ASSISTANT Normal [facility] TYPE + SCREEN PRENATALon ABO O Normal [facility] Comment on above: Order Comment: Speci men Type: BLOOD SPECIMEN [facility] Address: [address] [place] [address] Performed By: #### T SPN #### [facility] CLIA [id number] [address] HISTORICAL AB SCR STATUS Negative [facility] Comment on above: Order Comment: Speci men Type: BLOOD SPECIMEN [facility] Address: [address] [place] [address] Performed By: #### T SPN #### [facility] CLIA [id number] [address] [place] [address] Rh Nom (Bld) Positive Normal [facility] Comment on above: Order Comment: Speci men Type: BLOOD SPECIMEN [facility] Address: [address] [place] [address] Performed By: #### T SPN #### [facility] CLIA [id number] [address] [place] [address] TYPE AND SCREEN EXPIRATION 08/17/2022 23:59 Normal [facility] Comment on above: Order Comment: Speci men Type: BLOOD SPECIMEN [facility] Address: [address] [place] [address] Performed By: #### T SPN #### [facility] CLIA [id number] [address] [place] [address] CNPNon 08-10-2022 CNPN Telephone (OBEM) LUZ [id number]) 2000 F Date Time Provider Department 08/10/22 [...] NISA MURPHY on 11/11/22 Normal [facility] Absolute lymphocyte counton 08-09-2022 Lymphocytes Auto (Unsp spec) [#/Vol] 1.23 10*3/uL 0.83-4.51 [facility] Work Phone: Basophil percentageon 2021 Basophils/100 WBC (Bld) 0.2 % 0-1 [facility] Work Phone: Bilirubin [Mass/Vol] 0.50 mg/dL 0.20-1.00 [facility] Work Phone: Comment on above: For patients on eltr ombopag therapy, use of Dimension [place] TBIL is not recommended. Chloride [Moles/Vol] 107 mmol/L 98-107 [facility] Work Phone: Eosinophils/100 WBC (Bld) 0.3 % 0-5 [facility] Work Phone: Glucose [Mass/Vol] 122 mg/dL 74-106 [facility] Work Phone: Comment on above: Fasting Glucose resu lt from 100 to 125 mg/dL suggests IMPAIRED HOMEOSTASIS per A.D.A. criteria. Neutrophils (Bld) [#/Vol] 4.2 10*3/uL 2.0-7.7 [facility] Work Phone: Neutrophils/100 WBC (Bld) 71.9 % 47-70 [facility] Work Phone: Potassium [Moles/Vol] 3.5 mmol/L 3.5-5.1 [facility] Work Phone: Protein [Mass/Vol] 7.3 g/dL 6.4-8.2 [facility] Work Phone: Sodium [Moles/Vol] 139 mmol/L 136-145 [facility] Work Phone: WBC (Bld) [#/Vol] 5.9 10*3/uL 4.4-11.0 [facility] Work Phone: Basophil percentage 0 SEEN /hpf 0-5 [facility] Work Phone: Beta hCG serum qualon 2021 Beta HCG ( test) Ql Negative [facility] Work Phone: Comment on above: TEST is *P OSITIVE* Bilirubin Test strip Ql (U)o n 08-09-2022 Bilirubin Ql (U) Negative Negative [facility] Work Phone: Blood erythrocytes count (nu mber/volume)on 08-09-2022 RBC (Bld) [#/Vol] 4.26 10*6/uL 4.2-5.4 [facility] Work Phone: Blood hemoglobin measurement (mass/volume)on 08-09-2022 Hemoglobin (Bld) [Mass/Vol] 13.4 g/dL 12.0-15.0 [facility] Work Phone: Blood lymphocytes/100 leukoc yteson 08-09-2022 Lymphocytes/100 WBC (Bld) 21.0 % 19-41 [facility] Work Phone: Blood monocytes/100 leukocyt eson 08-09-2022 Monocytes/100 WBC (Bld) 6.3 % 0-10 [facility] Work Phone: Blood platelet mean volumeon 08-09-2022 Platelet mean volume (Bld) [Entitic vol] 10.1 fL 6.2-12.0 [facility] Work Phone: Determination of erythrocyte mean corpuscular volume (MCV)on 08-09-2022 MCV (RBC) [Entitic vol] 91.8 fL 81-99 [facility] Work Phone: Hematocrit Auto (Bld) [Volum e fraction]on 08-09-2022 Hematocrit (Bld) [Volume fraction] 39.1 % 37-47 [facility] Work Phone: Ketones Test strip Ql (U)on 08-09-2022 Ketones Ql (U) Negative Negative [facility] Work Phone: [phone] Laboratory - Chemistry and C hemistry - challengeon 08-09-2022 ALP [Catalytic activity/Vol] 56 U/L 45-117 [facility] Work Phone: [phone] ALT [Catalytic activity/Vol] 67 U/L 13-56 [facility] Work Phone: [phone] CO2 [Moles/Vol] 25.0 mmol/L 21.0-32.0 [facility] Work Phone: [phone] Globulin (S) [Mass/Vol] 3.5 g/dL 2.2-4.2 [facility] Work Phone: [phone] Urea nitrogen/Creatinine [Mass ratio] 9.7 mg/mg 10-20 [facility] Work Phone: [phone] Laboratory - Hematology and Cell countson 08-09-2022 Erythrocyte distribution width (RBC) [Entitic vol] 42.5 fL 35.1-43.9 [facility] Work Phone: [phone] Erythrocyte distribution width (RBC) [Ratio] 12.8 % 11.6-14.6 [facility] Work Phone: [phone] Immature granulocytes/100 WBC (Bld) 0.300 % 0.0-0.9 [facility] Work Phone: [phone] Comment on above: IG% - Immature Granu locytes (promyelocytes, myelocytes and metamyelocytes) > 1% indicates that a LEFT SHIFT is Present. MCH (RBC) [Entitic mass] 31.5 pg 27.0-32.0 [facility] Work Phone: [phone] Nucleated RBC/100 WBC (Bld) [Ratio] 0 % 0-5 [facility] Work Phone: [phone] MCHC Auto (RBC) [Mass/Vol]on 08-09-2022 MCHC (RBC) [Mass/Vol] 34.3 g/dL 32-36 [facility] Work Phone: [phone] Mucus LM Ql (Urine sed)on Mucus Ql (Urine sed) 0 SEEN /hpf [facility] Work Phone: Nitrite Test strip Ql (U)on 08-09-2022 Nitrite Ql (U) Negative Negative [facility] Work Phone: No Panel Informationon 08-09 Estimated Creatinine Clearance Calc 81.20 ml/min [facility] Work Phone: Estimated GFR (MDRD) Amer 111 mL/min >60 [facility] Work Phone: Comment on above: GFR Calc Estimated GFR (MDRD) Non-Af Amer 91 mL/min >60 [facility] Work Phone: Comment on above: Non- GFR Calc Platelets bldon 08-09-2022 Platelets (Bld) [#/Vol] 224 10*3/uL 150-450 [facility] Work Phone: Protein Test strip Ql (U)on 08-09-2022 Protein Ql (U) Negative Negative [facility] Work Phone: Serum or plasma albumin sabino urement (mass/volume)on 08-09-2022 Albumin [Mass/Vol] 3.8 g/dL 3.2-5.0 [facility] Work Phone: Serum or plasma albumin/glob ulin mass ratioon 08-09-2022 Albumin/Globulin [Mass ratio] 1.1 {ratio} 0.9-2.4 [facility] Work Phone: [phone] Serum or plasma calcium sabino urement (mass/volume)on 08-09-2022 Calcium [Mass/Vol] 9.2 mg/dL 8.5-10.1 [facility] Work Phone: [phone] Serum or plasma choriogonado tropin detectionon 08-09-2022 H[place] ( [place]) [place] [address] mIU/mL <4 [facility] Work Phone: Comment on above: hCG levels with Gest ational AgeGestational Age hCG mIU/mL (IU/L)0.2 - 1 week 5 - 501-2 weeks 50 - 5002-3 weeks 100 - 85547-1 weeks 500 - 460284-3 weeks 1000 - 909335-2 weeks 00705 - 100,0006-8 weeks 97926 - 200,0002-3 months 94942 - 100,000 Serum or plasma creatinine m easurement (mass/volume)on 08-09-2022 Creatinine [Mass/Vol] 0.82 mg/dL 0.55-1.02 [facility] Work Phone: Comment on above: The validity of the calculated GFR & GFRAA in patients over 70 years has not been determined. Clinical correlation is essential. Serum or plasma urea nitroge n measurement (mass/volume)on 08-09-2022 Urea nitrogen [Mass/Vol] 8 mg/dL 7-18 [facility] Work Phone: Squamous epithelial cells de tection in urine sediment by light microscopyon 08-09-2022 Epithelial cells.squamous LM Ql (Urine sed) 0-5 SEEN /hpf 5-10 [facility] Work Phone: Thin prep Papanicolaou smear with manual screeningon 08-09-2022 Thin prep Papanicolaou smear with manual screening 38 U/L 15-37 [facility] Work Phone: Thin prep Papanicolaou smear with manual screening 7 5-15 [facility] Work Phone: Urine blood detectionon 07-13 RBC Ql (U) 25 /ul Negative [facility] Work Phone: RBC Ql (U) 0 SEEN /hpf 0-5 [facility] Work Phone: Urine clarityon 08-09-2022 Clarity (U) Clear Clear [facility] Work Phone: Urine color determinationon 08-09-2022 Color (U) Yellow Yellow [facility] Work Phone: Urine glucose detectionon Glucose Ql (U) Normal mg/dl Normal [facility] Work Phone: Urine leukocyte esterase det ection by dipstickon 08-09-2022 Leukocyte esterase Test strip Ql (U) 25 /ul Negative [facility] Work Phone: Urine pHon 08-09-2022 pH (U) 7.0 [pH] 5.0 - 8.0 [facility] Work Phone: Urine sediment bacteria coun t by microscopy (number/high power field)on 08-09-2022 Bacteria LM.HPF (Urine sed) [#/Area] 0 /[HPF] None Seen [facility] Work Phone: Urine specific gravity measu rementon 08-09-2022 Specific gravity (U) [Rel density] 1.010 1.002-1.030 [facility] Work Phone: Urobilinogen Auto test strip Ql (U)on 08-09-2022 Urobilinogen Ql (U) Normal mg/dl Normal [facility] Work Phone: CBCon 08-04-2022 Hematocrit (Bld) [...] - 10.7 10*3/uL [facility] Test Performed by [employer] [facility], [address] , [address] LAB [facility] HCG, QUANTITATIVE, on 08-04-2022 hCG Quant 3840 m[IU]/mL [facility] Comment on above: Females < 5 [...] gestational trophoblastic disease. Test Performed by [facility], [address] , [address] LAB [facility] Hemogramon 08-04-2022 Erythrocyte distribution width (RBC) [Ratio] 12.8 % Normal 11.5-14.5 [facility] Comment on above: Performed By: #### H LIONEL QWNT5 #### [facility] [address] [place] [address] Hematocrit (Bld) [Volume fraction] 39.2 % Normal 35.0-47.0 [facility] Comment on above: Performed By: #### H LIONEL QWNT5 #### [facility] [address] [place] [place] [address] Hemoglobin (Bld) [Mass/Vol] 13.4 g/dL Normal 11.7-16.0 [facility] Comment on above: Performed By: #### H Paul FLOWERSWNT5 #### [facility] [address] [place] [address] MCH (RBC) [Entitic mass] 31.4 pg Normal 26.0-34.0 [facility] Comment on above: Performed By: #### H EMOG, QWNT5 #### [facility] [address] [place] [address] MCHC 34.2 % Normal 32.0-36.0 [facility] Comment on above: Performed By: #### H EMOG, QWNT5 #### [facility] [address] [place] [address] MCV (RBC) [Entitic vol] 91.8 fL Normal 79.0-98.0 [facility] Comment on above: Performed By: #### H EMOG, QWNT5 #### [facility] [address] [place] [address] Platelet mean volume (Bld) [Entitic vol] 9.9 fL Normal 7.4-12.4 [facility] Comment on above: Result Comment: MPV is a calculated measurement using platelet volume ratio. Performed By: #### H EMOG, QWNT5 #### [facility] [address] [place] [address] Platelets (Bld) [#/Vol] 217 10*3/uL Normal 140-440 [facility] Comment on above: Performed By: #### H EMOG, QWNT5 #### [facility] [address] [place] [address] RBC (Bld) [#/Vol] 4.27 10*6/uL Normal 3.80-5.20 [facility] Comment on above: Performed By: #### H EMOG, QWNT5 #### [facility] [address] [place] [address] WBC (Bld) [#/Vol] 5.4 10*3/uL Normal 3.6-10.7 [facility] Comment on above: Performed By: #### H EMOG, QWNT5 #### [facility] [address] [place] [address] GELon 08-04-2022 GEL ABO Group: O Rh, Gel: POS Antibody Screen Gel: NEG Normal [facility] Comment on above: Performed By: #### P NGL #### [facility] TYPE AND SCREENon 1 ABO Grouping O [facility] Work Phone: Rh Type Positive [facility] Work Phone: Test Performed by [facility], [address] , [place], [place] [id number] [place] [address] LAB [facility] Work Phone: US OB TRANSVAGINALon Patient Name: LUZ OLIVEIRA Ultrasound ACCESSION EXAM DATE/TIME PROCEDURE ORDERING PROVIDER [id number] 08/04/2022 12:05 EDT [place] [id number] -KATIRAI, ANIS Transvaginal CPT code 51745 Reason For Exam (US Transvaginal) 7 weeks [...] Date and Time: 08/04/2022 12:31 CLAIRE [facility] Silas Arbeu DO - 08/04/2022 Patient Name: LUZ OLIVEIRA Ultrasound ACCESSION EXAM DATE/TIME PROCEDURE ORDERING PROVIDER [id number] 08/04/2022 12:05 EDT [place] [id number] HARRISON Transvaginal CPT code 17611 Reason For Exam (US Transvaginal) 7 weeks [...] Ultrasound ACCESSION EXAM DATE/TIME PROCEDURE ORDERING PROVIDER [id number] 08/04/2022 12:05 EDT [place] [id number] HARRISON Transvaginal CPT code 32707 Reason For Exam (US Transvaginal) 7 weeks [...] Date and Time: 08/04/2022 12:31 Normal [facility] hCG Quantitativeon hCG Quantitative 3840 m[IU]/mL Normal [facility] Comment on above: Result Comment: Fema [...] gestational trophoblastic disease. Performed By: #### H [facility] CITY[facility]IMANT5 #### [facility] [place] [address] [facility] CNCO Letter Text Normal [facility] CNPLizy 07-09-2022 [facility] LUZ OLIVEIRA ([id number]) 2000 F Date Time Provider Department 07/09/22 [...] (FLONASE) 50 mcg/actuation nasal spray Use 1 [place] in each nostril once daily. 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 Absolute lymphocyte counton 06-29-2022 Lymphocytes Auto (Unsp spec) [#/Vol] 1.79 10*3/uL 0.83-4.51 [facility] Work Phone: Basophil percentageon 2021 Basophil percentage 0-5 SEEN /hpf 0-5 [facility] Work Phone: Basophils/100 WBC (Bld) 0.1 % 0-1 [facility] Work Phone: Chloride [Moles/Vol] 106 mmol/L 98-107 [facility] Work Phone: Eosinophils/100 WBC (Bld) 0.2 % 0-5 [facility] Work Phone: Glucose [Mass/Vol] 98 mg/dL 74-106 [facility] Work Phone: Neutrophils (Bld) [#/Vol] 6.1 10*3/uL 2.0-7.7 [facility] Work Phone: Neutrophils/100 WBC (Bld) 72.2 % 47-70 [facility] Work Phone: Potassium [Moles/Vol] 3.9 mmol/L 3.5-5.1 [facility] Work Phone: Sodium [Moles/Vol] 142 mmol/L 136-145 [facility] Work Phone: WBC (Bld) [#/Vol] 8.5 10*3/uL 4.4-11.0 [facility] Work Phone: Beta hCG serum qualon 2021 Beta HCG ( test) Ql Negative [facility] Work Phone: Bilirubin Test strip Ql (U)o n 06-29-2022 Bilirubin Ql (U) Negative Negative [facility] Work Phone: Blood erythrocytes count (nu mber/volume)on 06-29-2022 RBC (Bld) [#/Vol] 4.44 10*6/uL 4.2-5.4 [facility] Work Phone: Blood hemoglobin measurement (mass/volume)on 06-29-2022 Hemoglobin (Bld) [Mass/Vol] 13.7 g/dL 12.0-15.0 [facility] Work Phone: Blood lymphocytes/100 leukoc yteson 06-29-2022 Lymphocytes/100 WBC (Bld) 21.2 % 19-41 [facility] Work Phone: [phone] Blood monocytes/100 leukocyt eson 06-29-2022 Monocytes/100 WBC (Bld) 5.8 % 0-10 [facility] Work Phone: Blood platelet mean volumeon 06-29-2022 Platelet mean volume (Bld) [Entitic vol] 9.9 fL 6.2-12.0 [facility] Work Phone: Determination of erythrocyte mean corpuscular volume (MCV)on 06-29-2022 MCV (RBC) [Entitic vol] 90.5 fL 81-99 [facility] Work Phone: Hematocrit Auto (Bld) [Volum e fraction]on 06-29-2022 Hematocrit (Bld) [Volume fraction] 40.2 % 37-47 [facility] Work Phone: Ketones Test strip Ql (U)on 06-29-2022 Ketones Ql (U) Negative Negative [facility] Work Phone: Laboratory - Chemistry and C hemistry - challengeon 06-29-2022 CO2 [Moles/Vol] 28.0 mmol/L 21.0-32.0 [facility] Work Phone: Urea nitrogen/Creatinine [Mass ratio] 23.1 mg/mg 10-20 [facility] Work Phone: Laboratory - Hematology and Cell countson 06-29-2022 Erythrocyte distribution width (RBC) [Entitic vol] 41.0 fL 35.1-43.9 [facility] Work Phone: [phone] Erythrocyte distribution width (RBC) [Ratio] 12.7 % 11.6-14.6 [facility] Work Phone: [phone] Immature granulocytes/100 WBC (Bld) 0.500 % 0.0-0.9 [facility] Work Phone: [phone] Comment on above: IG% - Immature Granu locytes (promyelocytes, myelocytes and metamyelocytes) > 1% indicates that a LEFT SHIFT is Present. MCH (RBC) [Entitic mass] 30.9 pg 27.0-32.0 [facility] Work Phone: [phone] Nucleated RBC/100 WBC (Bld) [Ratio] 0 % 0-5 [facility] Work Phone: [phone] MCHC Auto (RBC) [Mass/Vol]on 06-29-2022 MCHC (RBC) [Mass/Vol] 34.1 g/dL 32-36 [facility] Work Phone: [phone] Mucus LM Ql (Urine sed)on Mucus Ql (Urine sed) 0 SEEN /hpf [facility] Work Phone: [phone] Nitrite Test strip Ql (U)on 06-29-2022 Nitrite Ql (U) Negative Negative [facility] Work Phone: [phone] Panel Informationon 06-29 Estimated Creatinine Clearance Calc 89.98 ml/min [facility] Work Phone: [phone] Estimated GFR (MDRD) Amer 126 mL/min >60 [facility] Work Phone: [phone] Comment on above: GFR Calc Estimated GFR (MDRD) Non-Af Amer 104 mL/min >60 [facility] Work Phone: [phone] Comment on above: Non- GFR Calc Platelets bldon 06-29-2022 Platelets (Bld) [#/Vol] 287 10*3/uL 150-450 [facility] Work Phone: [phone] Protein Test strip Ql (U)on 06-29-2022 Protein Ql (U) 30 mg/dl Negative [facility] Work Phone: Serum or plasma calcium sabino urement (mass/volume)on 06-29-2022 Calcium [Mass/Vol] 9.7 mg/dL 8.5-10.1 [facility] Work Phone: Serum or plasma creatinine m easurement (mass/volume)on 06-29-2022 Creatinine [Mass/Vol] 0.74 mg/dL 0.55-1.02 [facility] Work Phone: Comment on above: The validity of the calculated GFR & GFRAA in patients over 70 years has not been determined. Clinical correlation is essential. Serum or plasma urea nitroge n measurement (mass/volume)on 06-29-2022 Urea nitrogen [Mass/Vol] 17 mg/dL 7-18 [facility] Work Phone: Squamous epithelial cells de tection in urine sediment by light microscopyon 06-29-2022 Epithelial cells.squamous LM Ql (Urine sed) 0-5 SEEN /hpf 5-10 [facility] Work Phone: Thin prep Papanicolaou smear with manual screeningon 06-29-2022 Thin prep Papanicolaou smear with manual screening 8 5-15 [facility] Work Phone: Urine blood detectionon 06-11 RBC Ql (U) 25 /ul Negative [facility] Work Phone: RBC Ql (U) 0-5 SEEN /hpf 0-5 [facility] Work Phone: Urine clarityon 06-29-2022 Clarity (U) Clear Clear [facility] Work Phone: Urine color determinationon 06-29-2022 Color (U) Yellow Yellow [facility] Work Phone: Urine glucose detectionon Glucose Ql (U) Normal mg/dl Normal [facility] Work Phone: Urine leukocyte esterase det ection by dipstickon 06-29-2022 Leukocyte esterase Test strip Ql (U) 25 /ul Negative [facility] Work Phone: Urine pHon 06-29-2022 pH (U) 6.5 [pH] 5.0 - 8.0 [facility] Work Phone: Urine sediment bacteria coun t by microscopy (number/high power field)on 06-29-2022 Bacteria LM.HPF (Urine sed) [#/Area] 0 /[HPF] None Seen [facility] Work Phone: Urine specific gravity measu rementon 06-29-2022 Specific gravity (U) [Rel density] 1.010 1.002-1.030 [facility] Work Phone: Urobilinogen Auto test strip Ql (U)on 06-29-2022 Urobilinogen Ql (U) Normal mg/dl Normal [facility] Work Phone: CBC W Auto Differential pane l (Bld)on 05-31-2022 Basophils (Bld) [#/Vol] 10*3/uL Normal <0.11 [facility] Comment on above: Order Comment: Speci men Type: BLOOD SPECIMENOrdering Facility: [facility] Address: [address] [address] Performed By: #### 5 7021-8 ####[facility] LABORATORYCLIA [id number] [address] [place] Basophils/100 WBC (Bld) 0.0 % Normal [facility] Comment on above: Order Comment: Speci men Type: BLOOD SPECIMENOrdering Facility: [facility] Address: [address] [address] Performed By: #### 5 7021-8 ####[facility] LABORATORYCLIA [id number] [address] [place] Differential cell count method Nom (Bld) Auto Normal [facility] Comment on above: Order Comment: Speci men Type: BLOOD SPECIMENOrdering Facility: [facility] Address: [address] [address] Performed By: #### 5 7021-8 ####[facility]ORY[facility] [id number] [address] [place] Eosinophils (Bld) [#/Vol] 10*3/uL Normal <0.46 [facility] Comment on above: Order Comment: Speci men Type: BLOOD SPECIMENOrdering Facility: [facility] Address: [address] [place] [address] Performed By: #### 5 7021-8 ####[facility] LABORATORYCLIA [id number] [address] Eosinophils/100 WBC (Bld) 0.2 % Normal [facility] Comment on above: Order Comment: Speci men Type: BLOOD SPECIMENOrdering Facility: [facility] Address: [address] [place] [address] Performed By: #### 5 7021-8 ####[facility] LABORATORYCLIA [id number] [address] Erythrocyte distribution width (RBC) [Ratio] 12.5 % Normal 11.5-15.0 [facility] Comment on above: Order Comment: Speci men Type: BLOOD SPECIMENOrdering Facility: [facility] Address: [address] [place] [address] Performed By: #### 5 7021-8 ####[facility] LABORATORYCLIA [id number] [address] [place] Hematocrit (Bld) [Volume fraction] 38.8 % Normal 36.0-46.0 [facility] Comment on above: Order Comment: Speci men Type: BLOOD SPECIMENOrdering Facility: [facility] Address: [address] [place] [address] Performed By: #### 5 7021-8 ####[facility] LABORATORYCLIA [id number] [address] Hemoglobin (Bld) [Mass/Vol] 13.4 g/dL Normal 11.5-15.5 [facility] Comment on above: Order Comment: Speci men Type: BLOOD SPECIMENOrdering Facility: [facility] Address: [address] [place] [address] Performed By: #### 5 7021-8 ####[facility]ORYCLIA [id number] [address] IMMATURE GRAN % 0.2 % Normal [facility] Comment on above: Order Comment: Speci men Type: BLOOD SPECIMENOrdering Facility: [facility] Address: [address] [place] [address] Performed By: #### 5 7021-8 ####[facility] LABORATORYCLIA [id number] [address] IMMATURE GRAN ABS <0.03 Normal <0.10 [facility] Comment on above: Order Comment: Speci men Type: BLOOD SPECIMENOrdering Facility: [facility] Address: [address] [place] [address] Performed By: #### 5 7021-8 ####[facility] LABORATORYCLIA [id number] [address] Lymphocytes (Bld) [#/Vol] 1.08 10*3/uL Normal 1.00-4.00 [facility] Comment on above: Order Comment: Speci men Type: BLOOD SPECIMENOrdering Facility: [facility] Address: [address] [place] [address] Performed By: #### 5 7021-8 ####[facility]ORATORYCLIA [id number] [address] Lymphocytes/100 WBC (Bld) 26.3 % Normal [facility] Comment on above: Order Comment: Speci men Type: BLOOD SPECIMENOrdering Facility: [facility] Address: [address] [place] [address] Performed By: #### 5 7021-8 ####[facility]ATORYCLIA [id number] [address] [place] MCH (RBC) [Entitic mass] 30.2 pg Normal 26.0-34.0 [facility] Comment on above: Order Comment: Speci men Type: BLOOD SPECIMENOrdering Facility: [facility] Address: [address] [place] [address] Performed By: #### 5 7021-8 ####[facility]ORATORYCLIA [id number] [address] STATES OF [facility] MCHC (RBC) [Mass/Vol] 34.5 g/dL Normal 30.5-36.0 [facility] Comment on above: Order Comment: Speci men Type: BLOOD SPECIMENOrdering Facility: [facility] Address: [address] [place] [address] Performed By: #### 5 7021-8 ####[facility]ORATORYCLIA [id number] [address] [place] MCV (RBC) [Entitic vol] 87.6 fL Normal 80.0-100.0 [facility] Comment on above: Order Comment: Speci men Type: BLOOD SPECIMENOrdering Facility: [facility] Address: [address] [place] [address] Performed By: #### 5 7021-8 ####[facility]ATORYCLIA [id number] [address] OF [facility] Monocytes (Bld) [#/Vol] 0.34 10*3/uL Normal <0.87 [facility] Comment on above: Order Comment: Speci men Type: BLOOD SPECIMENOrdering Facility: [facility] Address: [address] [place] [address] Performed By: #### 5 7021-8 ####[facility]ATORYCLIA [id number] [address] Monocytes/100 WBC (Bld) 8.3 % Normal [facility] Comment on above: Order Comment: Speci men Type: BLOOD SPECIMENOrdering Facility: [facility] Address: [address] [place] [address] Performed By: #### 5 7021-8 ####[facility]ORATORYCLIA [id number] [address] [place] Neutrophils (Bld) [#/Vol] 2.66 10*3/uL Normal 1.45-7.50 [facility] Comment on above: Order Comment: Speci men Type: BLOOD SPECIMENOrdering Facility: [facility] Address: [address] [place] [address] Performed By: #### 5 7021-8 ####[facility]ORATORYCLIA [id number] [address] [place] Neutrophils/100 WBC (Bld) 65.0 % Normal [facility] Comment on above: Order Comment: Speci men Type: BLOOD SPECIMENOrdering Facility: [facility] Address: [address] [place] [address] Performed By: #### 5 7021-8 ####[facility]ORATORYCLIA [id number] [address] [place] Nucleated RBC (Bld) [#/Vol] 10*3/uL Normal <0.01 [facility] Comment on above: Order Comment: Speci men Type: BLOOD SPECIMENOrdering Facility: [facility] Address: [address] [place] [address] Performed By: #### 5 7021-8 ####[facility]ORYCLIA [id number] [address] [place] Nucleated RBC/100 WBC (Bld) [Ratio] 0.0 /100 WBC Normal [facility] Comment on above: Order Comment: Speci men Type: BLOOD SPECIMENOrdering Facility: [facility] Address: [address] [place] [address] Performed By: #### 5 7021-8 ####[facility]ORATORYCLIA [id number] [address] [place] Platelet mean volume (Bld) [Entitic vol] 9.7 fL Normal 9.0-12.7 [facility] Comment on above: Order Comment: Speci men Type: BLOOD SPECIMENOrdering Facility: [facility] Address: [address] [address] Performed By: #### 5 7021-8 ####[facility]ORATORYCLIA [id number] [address] OF [facility] Platelets (Bld) [#/Vol] 178 10*3/uL Normal 150-400 [facility] Comment on above: Order Comment: Speci men Type: BLOOD SPECIMENOrdering Facility: [facility] Address: [address] [place] [address] Performed By: #### 5 7021-8 ####[facility]ORATORYCLIA [id number] [address] [place] RBC (Bld) [#/Vol] 4.43 10*6/uL Normal 3.90-5.20 [facility] Comment on above: Order Comment: Speci men Type: BLOOD SPECIMENOrdering Facility: [facility] Address: [address] [place] [address] Performed By: #### 5 7021-8 ####[facility]ORATORYCLIA [id number] [address] OF [facility] WBC (Bld) [#/Vol] 4.10 10*3/uL Normal 3.70-11.00 [facility] Comment on above: Order Comment: Speci men Type: BLOOD SPECIMENOrdering Facility: [facility] Address: [address] [place] [address] Performed By: #### 5 7021-8 ####[facility] LABORATORYCLIA [id number] [address] Comprehensive metabolic 2000 panelon 05-31-2022 Albumin [Mass/Vol] 4.5 g/dL Normal 3.9-4.9 [facility] Comment on above: Order Comment: Speci men Type: BLOOD SPECIMENOrdering Facility: [facility] Address: [address] [place] [address] Performed By: #### 3 040-3, 04078-1, 97190-2 ####[facility]ORATORYCLIA [id number] [address] [place] ALP [Catalytic activity/Vol] 60 U/L Normal 34-123 [facility] Comment on above: Order Comment: Speci men Type: BLOOD SPECIMENOrdering Facility: [facility] Address: [address] [place] [address] Performed By: #### 3 040-3, 01761-5, ####[facility]ORATORYCLIA [id number] [address] STATES OF [facility] ALT With P-5'-P [Catalytic activity/Vol] 55 U/L High 7-38 [facility] Comment on above: Order Comment: Speci men Type: BLOOD SPECIMENOrdering Facility: [facility] Address: [address] [place] [address] Performed By: #### 3 040-3, 27319-8, ####[facility]ATORYCLIA [id number] [address] Anion gap [Moles/Vol] 12 mmol/L Normal 9-18 [facility] Comment on above: Order Comment: Speci men Type: BLOOD SPECIMENOrdering Facility: [facility] Address: [address] [place] [address] Performed By: #### 3 040-3, 61938-1, ####[facility]ORATORYCLIA [id number] [address] STATES OF [facility] AST With P-5'-P [Catalytic activity/Vol] 57 U/L High 13-35 [facility] Comment on above: Order Comment: Speci men Type: BLOOD SPECIMENOrdering Facility: [facility] Address: [address] [place] [address] Performed By: #### 3 040-3, 49602-2, ####[facility] LABORATORYCLIA [id number] [place] [address] [place] Bilirubin [Mass/Vol] 0.5 mg/dL Normal 0.2-1.3 [facility] Comment on above: Order Comment: Speci men Type: BLOOD SPECIMENOrdering Facility: [facility] Address: [address] [place] [address] Performed By: #### 3 040-3, , ####[facility] LABORATORYCLIA [id number] [place] [address] [place] Calcium [Mass/Vol] 8.9 mg/dL Normal 8.5-10.2 [facility] Comment on above: Order Comment: Speci men Type: BLOOD SPECIMENOrdering Facility: [facility] Address: [address] [place] [address] Performed By: #### 3 040-3, , ####[facility]ORATORYCLIA [id number] [place] [address] [place] Chloride [Moles/Vol] 102 mmol/L Normal 97-105 [facility] Comment on above: Order Comment: Speci men Type: BLOOD SPECIMENOrdering Facility: [facility] Address: [address] [place] [address] Performed By: #### 3 040-3, , ####[facility]ORATORYCLIA [id number] [place] [address] [place] CO2 [Moles/Vol] 25 mmol/L Normal 22-30 [facility] Comment on above: Order Comment: Speci men Type: BLOOD SPECIMENOrdering Facility: [facility] Address: [address] [place] [address] Performed By: #### 3 040-3, , ####[facility]ORATORYCLIA [id number] [place] [address] [place] Creatinine [Mass/Vol] 0.74 mg/dL Normal 0.58-0.96 [facility] Comment on above: Order Comment: Speci men Type: BLOOD SPECIMENOrdering Facility: [facility] Address: [address] [place] [address] Performed By: #### 3 040-3, 94829-6, ####[facility] SERVICESCLIA [id number] [address] ESTIMATED GLOMERULAR FILTRATION RATE 117 mL/min/1.73m??? Normal >=60 [facility] Comment on above: Order Comment: Eloise lopez Type: BLOOD SPECIMENOrdering Facility: [facility] Address: [address] [place] [address] Result Comment: Tierra mated Glomerular Filtration Rate [...] actual GFR. Performed By: #### 3 040-3, 22358-4, ####[facility]ITALIA [id number] [address] Glucose [Mass/Vol] 91 mg/dL Normal 74-99 [facility] Comment on above: Order Comment: Eloise lopez Type: BLOOD SPECIMENOrdering Facility: [facility] Address: [address] [place] [address] Result Comment: The [place] [employer] (ADA) provides guidance for cutoff [...] Standards of Medical Care in Diabetes 2016, [place] [employer]. Diabetes Care. 2016.39(Suppl 1). Performed By: #### 3 040-3, 52429-2, ####[facility]ATORYCLIA [id number] [address] [place] Potassium [Moles/Vol] 3.6 mmol/L Low 3.7-5.1 [facility] Comment on above: Order Comment: Speci men Type: BLOOD SPECIMENOrdering Facility: [facility] Address: [address] [place] [address] Performed By: #### 3 040-3, 38903-0, ####[facility]ATORYCLIA [id number] [address] [place] Protein [Mass/Vol] 6.7 g/dL Normal 6.3-8.0 [facility] Comment on above: Order Comment: Speci men Type: BLOOD SPECIMENOrdering Facility: [facility] Address: [address] [place] [address] Performed By: #### 3 040-3, 25380-0, ####[facility]ATORYCLIA [id number] [address] STATES OF [facility] Sodium [Moles/Vol] 139 mmol/L Normal 136-144 [facility] Comment on above: Order Comment: Speci men Type: BLOOD SPECIMENOrdering Facility: [facility] Address: [address] [place] [address] Performed By: #### 3 040-3, 31084-5, ####[facility]ORATORYCLIA [id number] [address] [place] Urea nitrogen [Mass/Vol] 7 mg/dL Normal 7-21 [facility] Comment on above: Order Comment: Speci men Type: BLOOD SPECIMENOrdering Facility: [facility] Address: [address] [place] [address] Performed By: #### 3 040-3, 64721-7, ####[facility]ORATORYCLIA [id number] [place] [address] [place] ED NOTEon 05-31-2022 ED NOTE HNO ID: [id number] Author: Agueda Meng RN Service: Emergency Medicine Author Type: Registered Nurse Type: ED Notes Filed: 05/31/2022 2:42 PM Note Text: Pt alert and oriented x 4, speaking in full sentences with unlabored breathing. Pt verbalizes understanding of discharge paperwork. Pt ambulated from department without difficulty. [facility] ED NOTE HNO ID: [id number] Author: Agueda Meng RN Service: Emergency Medicine [...] patient. Is at bedside at this time. [facility] ED NOTE HNO ID: [id number] Author: Agueda Meng RN Service: Emergency Medicine Author Type: Registered Nurse Type: ED Notes Filed: 05/31/2022 12:14 PM Note Text: POC BG 80 Normal [facility] ED NOTE HNO ID: [id number] Author: Agueda Meng RN Service: Emergency Medicine Author Type: Registered Nurse Type: ED Notes Filed: 05/31/2022 11:36 AM Note Text: Pt c/o weakness along with generalized illness symptoms. Pt placed on the bedside cardiac monitor technician at this time. [facility] ED NOTE HNO ID: [id number] Author: Danuta Staley RN Service: ? Author Type: Registered Nurse Type: ED Notes Filed: 05/31/2022 11:04 AM Note Text: Bed: 46-ED Expected date: Expected time: Means of arrival: Comments: triage Normal [facility] ED PROV NOTEon 05-31-2022 ED PROV NOTE HNO ID: [id number] Author: Hiwot Hudson MD Service: Emergency Medicine [...] vaccinated against COVID. She works at a [employer]. Possible sick contacts no recent travel. Vitals [...] PM Hiwot Hudson MD 05/31/22 1548 Normal [facility] ED PROV NOTE HNO ID: [id number] Author: Hiwot Hudson MD Service: Emergency Medicine [...] Diagnosis Date Cognitive disorder IEP per the [facility] Kidney stone [...] ED Course (more content not included)... Normal [facility] EKGon 05-31-2022 Electrocardiogram Ventricular Rate : 7 1 BPM Atrial Rate : 71 BPM P-R Interval : 118 ms QRS Duration : 84 ms Q-T Interval : 448 ms QTC Calculation(Bazett) : 486 ms Calculated P [place] : 23 degrees Calculated R [place] : 58 degrees Calculated T [place] : 27 degrees NORMAL SINUS RHYTHM NONSPECIFIC T WAVE ABNORMALITY PROLONGED QT ABNORMAL ECG NO PREVIOUS ECGS AVAILABLE Confirmed by KAUSHIK GUADALUPE MD ([id number]) on 06/04/2022 3:38:07 AM NAME : LUZ OLIVEIRA PID : [id number] : 2000 Gender : Female Race : ORD : Procedure Date : May 31 2022 13:06:20 Edit Date : Jun 04 2022 03:38:08 Diagnosis: NORMAL SINUS RHYTHM NONSPECIFIC T WAVE ABNORMALITY PROLONGED QT ABNORMAL ECG NO PREVIOUS ECGS AVAILABLE Confirmed by KAUSHIK GUADALUPE MD ([id number]) on 06/04/2022 3:38:07 AM Test Reason : Location : 4 : [facility] [address] Overread By : KAUSHIK GUADALUPE MD Edited By : KAUSHIK GUADALUPE MD Referred By : , Acquired by : KIRTI FRIED Normal [facility] HCG Preg Ur Qlon 05-31-2022 HCG ( test) Ql (U) Negative Normal Negative [facility] Comment on above: Order Comment: Speci men Type: URINE SPECIMENOrdering Facility: [facility] Address: [address] [place], [place] [id number] Result Comment: This test is intended to aid in the early detection of . Very dilute urine samples, as indicated by a low specific gravity, may not contain floor representative levels of hCG. This test detects [...] for . Performed By: #### 2 106-3 ####[facility] LABORATORYCLIA [id number] [place] [address] [place] Lipase SerPl-cCncon 08-21-20 22 Lipase [Catalytic activity/Vol] 17 U/L Normal 16-61 [facility] Comment on above: Order Comment: Speci men Type: BLOOD SPECIMENOrdering Facility: [facility] Address: [address] [place] [address] Performed By: #### 3 040-3, 96470-8, 93096-3 ####[facility]ORATORYCLIA [id number] [address] OF [facility] Magnesium SerPl-mCncon 05-31 Magnesium [Mass/Vol] 1.8 mg/dL Normal 1.7-2.3 [facility] Comment on above: Order Comment: Speci men Type: BLOOD SPECIMENOrdering Facility: [facility] Address: [address] [place] [address] Performed By: #### 3 040-3, 91248-7, 11271-6 ####[facility] LABORATORYCLIA [id number] [address] STATES OF [facility] ROUTINE FLU A/B + RSVon 05-12 FLUAV RNA CHICHO+probe Ql (Unsp spec) Negative Normal Negative for Influenza A by RT-PCR [facility] Comment on above: Order Comment: Speci men Type: SWAB OF INTERNAL NOSEOrdering Facility: [facility] Address: [address] [place] [address] Performed By: #### R TFRSV, 31088-7 ####[facility] LABCLIA [id number] [address] [place] FLUBV RNA CHICHO+probe Ql (Unsp spec) Negative Normal Negative for Influenza B by RT-PCR [facility] Comment on above: Order Comment: Speci men Type: SWAB OF INTERNAL NOSEOrdering Facility: [facility] Address: [address] [place] [address] Performed By: #### R TFRSV, 44387-7 ####[facility] LABCLIA [id number] [address] [place] RSV A RNA CHICHO+probe Ql (Unsp spec) Negative Normal Negative for Respiratory Syncytial Virus (RSV) by PCR [facility] Comment on above: Order Comment: Speci men Type: SWAB OF INTERNAL NOSEOrdering Facility: [facility] Address: [address] [place] [address] Performed By: #### R TFRSV, 28368-2 ####[facility] LABCLIA [id number] [address] [place] SARS-CoV-2 RNA Resp Ql CHICHO+p robeon 05-31-2022 SARS-CoV-2 (COVID-19) RNA CHICHO+probe Ql (Resp) SARS-CoV-2 (Agent of COVID-19) Detected by RT-PCR or equivalent method. Abnormal Not Detected [facility] Comment on above: Order Comment: Speci men Type: SWAB OF INTERNAL NOSEOrdering Facility: [facility] Address: [address] [place] [address] Result Comment: This test was developed and its performance characteristics determined by [facility]'s [facility] [place]. This test has been authorized by FDA under an Emergency Use Authorization (EUA). This test has been validated in accordance with the FDA's Guidance Document Policy for Diagnostics Testing in Laboratories Certified to Perform High Complexity Testing under CLIA prior to Emergency use Authorization for Coronavirus Disease 2019 during the Public Health Emergency issued on December 09, 2019. Test performed by [facility], [facility] [place], [address] [place] [address]. Performed By: #### R TFRSV, 55209-3 ####[facility] LABCLIA [id number] [address] [place] Urinalysis complete panel (U )on 05-31-2022 Bilirubin Ql (U) Negative Normal Negative [facility] Comment on above: Order Comment: Speci men Type: URINE SPECIMENOrdering Facility: [facility] Address: [address] [place] [address] Performed By: #### 2 4356-8 ####[facility] LABORATORYCLIA [id number] [address] Clarity (Unsp spec) Clear Normal Clear [facility] Comment on above: Order Comment: Speci men Type: URINE SPECIMENOrdering Facility: [facility] Address: [address] [place] [address] Performed By: #### 2 4356-8 ####[facility] LABORATORYCLIA [id number] [address] Color (U) Colorless Normal yellow [facility] Comment on above: Order Comment: Speci men Type: URINE SPECIMENOrdering Facility: [facility] Address: [address] [place] [address] Performed By: #### 2 4356-8 ####[facility]ORATORYCLIA [id number] [address] Glucose Test strip (U) [Mass/Vol] Negative Normal Negative [facility] Comment on above: Order Comment: Speci men Type: URINE SPECIMENOrdering Facility: [facility] Address: [address] [place] [address] Performed By: #### 2 4356-8 ####[facility]ORATORYCLIA [id number] [address] Hemoglobin Ql (U) Negative Normal Negative [facility] Comment on above: Order Comment: Speci men Type: URINE SPECIMENOrdering Facility: [facility] Address: [address] [address] Performed By: #### 2 4356-8 ####[facility] LABORATORYCLIA [id number] [address] Ketones Ql (U) 2+ Abnormal Negative [facility] Comment on above: Order Comment: Speci men Type: URINE SPECIMENOrdering Facility: [facility] Address: [address] [address] Performed By: #### 2 4356-8 ####[facility]ORATORYCLIA [id number] [address] Leukocyte esterase Test strip Ql (U) Negative Normal Negative [facility] Comment on above: Order Comment: Speci men Type: URINE SPECIMENOrdering Facility: [facility] Address: [address] [place] [address] Performed By: #### 2 4356-8 ####[facility] LABORATORYCLIA [id number] [address] [place] Nitrite Ql (U) Negative Normal Negative [facility] Comment on above: Order Comment: Speci men Type: URINE SPECIMENOrdering Facility: [facility] Address: [address] [place] [address] Performed By: #### 2 4356-8 ####[facility] LABORATORYCLIA [id number] [address] [place] pH (U) 7.5 [pH] Normal 5.0-8.0 [facility] Comment on above: Order Comment: Speci men Type: URINE SPECIMENOrdering Facility: [facility] Address: [address] [place] [address] Performed By: #### 2 4356-8 ####[facility] LABORATORYCLIA [id number] [address] Protein (U) [Mass/Vol] Negative Normal Negative [facility] Comment on above: Order Comment: Speci men Type: URINE SPECIMENOrdering Facility: [facility] Address: [address] [place] [address] Performed By: #### 2 4356-8 ####[facility] LABORATORYCLIA [id number] [address] [place] RBC LM.HPF (Urine sed) [#/Area] 0-3 /HPF Normal 0-3 /HPF [facility] Comment on above: Order Comment: Speci men Type: URINE SPECIMENOrdering Facility: [facility] Address: [address] [place] [address] Performed By: #### 2 4356-8 ####[facility] LABORATORYCLIA [id number] [address] Urobilinogen Ql (U) Normal Normal Negative [facility] Comment on above: Order Comment: Speci men Type: URINE SPECIMENOrdering Facility: [facility] Address: [address] [place] [address] Performed By: #### 2 4356-8 ####[facility] LABORATORYCLIA [id number] [address] WBC LM.HPF (Urine sed) [#/Area] 0-5 /HPF Normal 0-5 /HPF [facility] Comment on above: Order Comment: Speci men Type: URINE SPECIMENOrdering Facility: [facility] Address: [address] [place] [address] Performed By: #### 2 4356-8 ####[facility] SERVICESCLIA [id number] [address] Urinalysis complete pnl Uron 05-31-2022 Specific gravity (U) [Rel density] 1.005 Normal 1.005-1.030 [facility] Comment on above: Order Comment: Speci men Type: URINE SPECIMENOrdering Facility: [facility] Address: [address] [place] [address] Performed By: #### 2 4356-8 ####[facility] SERVICESCLIA [id number] [address] Result Comment: If s pecific gravity is <1.005 then results may be falsely negative. Serum HCG is recommended. Performed By: #### 2 106-3 ####[facility] LABORATORYCLIA [id number] [address] ALLIED HEALTHon 12-31-2021 ALLIED HEALTH HNO ID: [id number] Author: RT Tierney(R) Service: Radiology Author Type: Temporary Receptionist Type: Allied Health Filed: 12/31/2021 7:25 PM [...] December 31, 2021 TIME: 7:20 PM Normal [facility] Bacteria Ur Culton 2 Bacteria identified Cx Nom (U) CULTURE, URINE: Three or more urogenital den organisms. No predominating uropathogen. Recollect if clinically indicated. Normal [facility] Comment on above: Performed By: #### 6 30-4 #### [facility] CLIA [id number] [address] [place] [address] [place] CBC W Auto Differential pane l (Bld)on 12-31-2021 Basophils (Bld) [#/Vol] 10*3/uL Normal <0.11 [facility] Comment on above: Order Comment: Speci men Type: BLOOD SPECIMENOrdering Facility: [facility] Address: [address] [place] [address] Performed By: #### 5 7021-8 ####[facility] LABCLIA [id number] [place] [address] [place] [facility] Basophils/100 WBC (Bld) 0.1 % Normal [facility] Comment on above: Order Comment: Speci men Type: BLOOD SPECIMENOrdering Facility: [facility] Address: [address] [place] [address] Performed By: #### 5 7021-8 ####[facility] LABCLIA [id number] [facility], [facility] Differential cell count method Nom (Bld) Auto Normal [facility] Comment on above: Order Comment: Speci men Type: BLOOD SPECIMENOrdering Facility: [facility] Address: [address] [place] [address] Performed By: #### 5 7021-8 ####[facility] LABCLIA [id number] [facility] [place] Eosinophils (Bld) [#/Vol] 0.03 10*3/uL Normal <0.46 [facility] Comment on above: Order Comment: Speci men Type: BLOOD SPECIMENOrdering Facility: [facility] Address: [address] [place] [address] Performed By: #### 5 7021-8 ####[facility] LABCLIA [id number] [facility], [address] Eosinophils/100 WBC (Bld) 0.3 % Normal [facility] Comment on above: Order Comment: Speci men Type: BLOOD SPECIMENOrdering Facility: [facility] Address: [address] [place] [address] Performed By: #### 5 7021-8 ####[facility] LABCLIA [id number] [place] [address] [place] Erythrocyte distribution width (RBC) [Ratio] 12.0 % Normal 11.5-15.0 [facility] Comment on above: Order Comment: Speci men Type: BLOOD SPECIMENOrdering Facility: [facility] Address: [address] [place] [address] Performed By: #### 5 7021-8 ####[facility] LABCLIA [id number] [place] [address] [place] Hematocrit (Bld) [Volume fraction] 40.3 % Normal 36.0-46.0 [facility] Comment on above: Order Comment: Speci men Type: BLOOD SPECIMENOrdering Facility: [facility] Address: [address] [place] [address] Performed By: #### 5 7021-8 ####[facility] LABCLIA [id number] [place] [address] [place] Hemoglobin (Bld) [Mass/Vol] 13.8 g/dL Normal 11.5-15.5 [facility] Comment on above: Order Comment: Speci men Type: BLOOD SPECIMENOrdering Facility: [facility] Address: [address] [place] [address] Performed By: #### 5 7021-8 ####[facility] LABCLIA [id number] [facility] [place] [address] [place] Lymphocytes (Bld) [#/Vol] 1.98 10*3/uL Normal 1.00-4.00 [facility] Comment on above: Order Comment: Speci men Type: BLOOD SPECIMENOrdering Facility: [facility] Address: [address] [place] [address] Performed By: #### 5 7021-8 ####[facility] LABCLIA [id number] [place] [address] [facility] [place] Lymphocytes/100 WBC (Bld) 20.3 % Normal [facility] Comment on above: Order Comment: Speci men Type: BLOOD SPECIMENOrdering Facility: [facility] Address: [address] [place] [address] Performed By: #### 5 7021-8 ####[facility] LABCLIA [id number] [place] [address] [place] MCH (RBC) [Entitic mass] 30.7 pg Normal 26.0-34.0 [facility] Comment on above: Order Comment: Speci men Type: BLOOD SPECIMENOrdering Facility: [facility] Address: [address] [place] [address] Performed By: #### 5 7021-8 ####[facility] LABCLIA [id number] [address] [place] MCHC (RBC) [Mass/Vol] 34.2 g/dL Normal 30.5-36.0 [facility] Comment on above: Order Comment: Speci men Type: BLOOD SPECIMENOrdering Facility: [facility] Address: [address] [place] [address] Performed By: #### 5 7021-8 ####[facility] LABCLIA [id number] [address] [place] MCV (RBC) [Entitic vol] 89.6 fL Normal 80.0-100.0 [facility] Comment on above: Order Comment: Speci men Type: BLOOD SPECIMENOrdering Facility: [facility] Address: [address] [place] [address] Performed By: #### 5 7021-8 ####[facility] LABCLIA [id number] [place] [id number] [facility] Monocytes (Bld) [#/Vol] 0.70 10*3/uL Normal <0.87 [facility] Comment on above: Order Comment: Speci men Type: BLOOD SPECIMENOrdering Facility: [facility] Address: [address] [place] [address] Performed By: #### 5 7021-8 ####[facility] LABCLIA [id number] [place] [address] [place] Monocytes/100 WBC (Bld) 7.2 % Normal [facility] Comment on above: Order Comment: Speci men Type: BLOOD SPECIMENOrdering Facility: [facility] Address: [address] [place] [address] Performed By: #### 5 7021-8 ####[facility] LABCLIA [id number] [place] [address] [place] Neutrophils (Bld) [#/Vol] 7.02 10*3/uL Normal 1.45-7.50 [facility] Comment on above: Order Comment: Speci men Type: BLOOD SPECIMENOrdering Facility: [facility] Address: [address] [place] [address] Performed By: #### 5 7021-8 ####[facility] LABCLIA [id number] [place] [address] [place] Neutrophils/100 WBC (Bld) 72.1 % Normal [facility] Comment on above: Order Comment: Speci men Type: BLOOD SPECIMENOrdering Facility: [facility] Address: [address] [place] [address] Performed By: #### 5 7021-8 ####[facility] LABCLIA [id number] [place] [address] [place] Platelet mean volume (Bld) [Entitic vol] 9.7 fL Normal 9.0-12.7 [facility] Comment on above: Order Comment: Speci men Type: BLOOD SPECIMENOrdering Facility: [facility] Address: [address] [place] [address] Performed By: #### 5 7021-8 ####[facility] LABCLIA [id number] [place] [address] [place] Platelets (Bld) [#/Vol] 251 10*3/uL Normal 150-400 [facility] Comment on above: Order Comment: Speci men Type: BLOOD SPECIMENOrdering Facility: [facility] Address: [address] [place] [address] Performed By: #### 5 7021-8 ####[facility] LABCLIA [id number] [place] [address] [facility] RBC (Bld) [#/Vol] 4.50 10*6/uL Normal 3.90-5.20 [facility] Comment on above: Order Comment: Speci men Type: BLOOD SPECIMENOrdering Facility: [facility] Address: [address] [place] [address] Performed By: #### 5 7021-8 ####[facility] LABCLIA [id number] [place] [id number] [facility] WBC (Bld) [#/Vol] 9.74 10*3/uL Normal 3.70-11.00 [facility] Comment on above: Order Comment: Speci men Type: BLOOD SPECIMENOrdering Facility: [facility] Address: [address] [place] [address] Performed By: #### 5 7021-8 ####[facility] LABCLIA [id number] [place] [address] [facility] [address] ABD/PEL W IVCONon 12-31- 022 CT ABD/PEL W IVCON * * *Final Report* * * DATE OF EXAM: Dec 31 2021 7:25PM [facility] 0530 - CT ABD/PEL W [...] Tissues: No significant finding. Lower thorax: Unremarkable. Portable Machine Cutter (topogram) images: No additional findings. IMPRESSION: No acute abnormality Atrophic left kidney with cortical scarring and suspected small nonobstructing calculi. Findings may be related to chronic reflux disease or infection Hepatic steatosis Product Development Director: PSCB Transcribe Date/Time: Dec 31 2021 7:37P Dictated by : DIYA FUENTES MD This examination was interpreted and the report reviewed and electronically signed by: DIYA FUENTES MD on Dec 31 2021 7:42PM EST [id number] N Normal [facility] Comprehensive metabolic 2000 panelon 12-31-2021 Albumin [Mass/Vol] 4.0 g/dL Normal 3.4-5.0 [facility] Comment on above: Order Comment: Speci men Type: BLOOD SPECIMENOrdering Facility: [facility] Address: [address] [place] [id number] Performed By: #### 2 4323-8, 38064-6 ####[facility] LABCLIA [id number] [place] [address] [place] ALP [Catalytic activity/Vol] 74 U/L Normal 46-116 [facility] Comment on above: Order Comment: Speci men Type: BLOOD SPECIMENOrdering Facility: [facility] Address: [address] [place], [place] [address] Performed By: #### 2 4328, ####[facility] LABCLIA [id number] [facility] [address] [place] ALT With P-5'-P [Catalytic activity/Vol] 55 U/L Normal 12-78 [facility] Comment on above: Order Comment: Speci men Type: BLOOD SPECIMENOrdering Facility: [facility] Address: [address] [place] [address] Performed By: #### 2 8, ####[facility] LABCLIA [id number] [place] [address] [place] Anion gap [Moles/Vol] 2 mmol/L Low 8-16 [facility] Comment on above: Order Comment: Speci men Type: BLOOD SPECIMENOrdering Facility: [facility] Address: [address] [place] [address] Performed By: #### 2 8, ####[facility] LABCLIA [id number] [facility] [place] [address] [place] AST With P-5'-P [Catalytic activity/Vol] 29 U/L Normal 15-46 [facility] Comment on above: Order Comment: Speci men Type: BLOOD SPECIMENOrdering Facility: [facility] Address: [address] [place], [place] [address] Result Comment: Spec imen slightly hemolyzed. Performed By: #### 2 432-8, ####[facility] LABCLIA [id number] [place] [address] [place] Bilirubin [Mass/Vol] 0.2 mg/dL Normal 0.2-1.0 [facility] Comment on above: Order Comment: Speci men Type: BLOOD SPECIMENOrdering Facility: [facility] Address: [address] [place] [address] Performed By: #### 2 4323-8, ####[facility] LABCLIA [id number] [place] [address] [place] Calcium [Mass/Vol] 9.1 mg/dL Normal 8.5-10.1 [facility] Comment on above: Order Comment: Speci men Type: BLOOD SPECIMENOrdering Facility: [facility] Address: [address] [place] [address] Performed By: #### 2 4328, ####[facility] LABCLIA [id number] [place] [address] [place] Chloride [Moles/Vol] 100 mmol/L Normal 98-107 [facility] Comment on above: Order Comment: Speci men Type: BLOOD SPECIMENOrdering Facility: [facility] Address: [address] [place] [address] Performed By: #### 2 43212-16, ####[facility] LABCLIA [id number] [place] [address] [place] CO2 [Moles/Vol] 33 mmol/L High 21-32 [facility] Comment on above: Order Comment: Speci men Type: BLOOD SPECIMENOrdering Facility: [facility] Address: [address] [place] [address] Performed By: #### 2 4328, ####[facility] LABCLIA [id number] [place] [address] [place] Creatinine [Mass/Vol] 0.78 mg/dL Normal 0.51-0.95 [facility] Comment on above: Order Comment: Speci men Type: BLOOD SPECIMENOrdering Facility: [facility] Address: [facility] [place] [address] Performed By: #### 2 4323-8, ####[facility] LABCLIA [id number] [place] [address] [place] ESTIMATED GLOMERULAR FILTRATION RATE 110 mL/min/1.73m??? Normal >=60 [facility] Comment on above: Order Comment: Eloise lopez Type: BLOOD SPECIMENOrdering Facility: [facility] Address: [address] [place], [place] [address] Result Comment: Tierra mated Glomerular Filtration Rate [...] actual GFR. Performed By: #### 2 4323-8, 84935-5 ####[facility] LABCLIA [id number] [place] [address] [place] Glucose [Mass/Vol] 94 mg/dL Normal 70-99 [facility] Comment on above: Order Comment: Eloise lopez Type: BLOOD SPECIMENOrdering Facility: [facility] Address: [address] [place] [address] Result Comment: The [place] Diabetes Association (ADA) provides guidance for cutoff [...] Standards of Medical Care in Diabetes 2016, [place] [employer]. Diabetes Care. 2016.39(Suppl 1). Performed By: #### 2 4323-8, 27148-4 ####[facility] LABCLIA [id number] [place] [address] [place] Potassium [Moles/Vol] 3.6 mmol/L Normal 3.5-5.1 [facility] Comment on above: Order Comment: Speci men Type: BLOOD SPECIMENOrdering Facility: [facility] Address: [address] [place] [address] Result Comment: Spec imen slightly hemolyzed. Performed By: #### 2 432-8, ####[facility] LABCLIA [id number] [facility] [place] [address] [place] Protein [Mass/Vol] 7.7 g/dL Normal 6.4-8.2 [facility] Comment on above: Order Comment: Speci men Type: BLOOD SPECIMENOrdering Facility: [facility] Address: [address] [place] [address] Performed By: #### 2 432-8, ####[facility] LABCLIA [id number] [facility] [place] [address] [place] Sodium [Moles/Vol] 135 mmol/L Low 136-145 [facility] Comment on above: Order Comment: Speci men Type: BLOOD SPECIMENOrdering Facility: [facility] Address: [address] [place] [address] Performed By: #### 2 8, ####[facility] LABCLIA [id number] [facility] [place] [address] [place] Urea nitrogen [Mass/Vol] 10 mg/dL Normal 7-18 [facility] Comment on above: Order Comment: Speci men Type: BLOOD SPECIMENOrdering Facility: [facility] Address: [address] [place] [address] Performed By: #### 2 4328, ####[facility] LABCLIA [id number] [facility] [place] [address] [facility] [place] ED NOTEon 12-31-2021 ED NOTE HNO ID: [id number] Author: Amy Pena RN Service: Emergency Medicine Author Type: Registered Nurse Type: ED Notes Filed: 12/31/2021 7:03 PM Note Text: Patient resting in room. Patient updated on the plan of care. Bed in low locked position. Call light in reach. Monitoring maintained. Safety and comfort care maintained. [facility] ED NOTE HNO ID: [id number] Author: Amy Pena RN Service: Emergency Medicine Author Type: Registered Nurse Type: ED Notes Filed: 12/31/2021 6:34 PM Note Text: Patient resting in room. Patient updated on the plan of care. Bed in low locked position. Call light in reach. Monitoring maintained. Safety and comfort care maintained. [facility] ED NOTE HNO ID: [id number] Author: Amy Pena RN Service: Emergency Medicine Author Type: Registered Nurse Type: ED Notes Filed: 12/31/2021 5:20 PM Note Text: Patient resting in room. Patient updated on the plan of care. Bed in low locked position. Call light in reach. Monitoring maintained. Safety and comfort care maintained. [facility] ED NOTE HNO ID: [id number] Author: Amy Pena RN Service: Emergency Medicine Author Type: Registered Nurse Type: ED Notes Filed: 12/31/2021 4:55 PM Note Text: Patient updated on the plan of care. Patient medicated per order. Allergies reviewed. Patient verbalized understanding. 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 Emesis x 1 today. Normal BM today. Pt denies dysuria or hematuria. Hx of kidney stone and UTI Normal [facility] ED PROV NOTEon 12-31-2021 ED PROV NOTE HNO ID: [id number] Author: Mary Pereira DO Service: Emergency Medicine [...] edema. Skin (more content not included)... Normal [facility] ED PROV NOTE HNO ID: [id number] Author: Jayde Yeager MD Service: Emergency Medicine [...] MD Date: 12/31/2021 Time: 4:28 PM Jayde Yegaer MD 12/31/212020 Normal [facility] HCG Preg Ur Qlon 12-31-2021 HCG ( test) Ql (U) Negative Normal Negative [facility] Comment on above: Order Comment: Speci men Type: URINE SPECIMENOrdering Facility: [facility] Address: [address] [place] [address] Result Comment: This test is intended to aid in the early detection of . Very dilute urine samples, as indicated by a low specific gravity, may not contain floor representative levels of hCG. This test detects [...] for . Performed By: #### 2 106-3 ####[facility] LABCLIA [id number] [place] [address] [place] Magnesium SerPl-mCncon 12-31 Magnesium [Mass/Vol] 1.9 mg/dL Normal 1.6-2.3 [facility] Comment on above: Order Comment: Speci men Type: BLOOD SPECIMENOrdering Facility: [facility] Address: [address] [place] [address] Performed By: #### 2 4323-8, 50147-5 ####[facility] LABIA [id number] [place] [address] [place] US DOPPLER COMPLETEon 2021 [...] to body habitus. 4. No free fluid. Product Development Director: CAROLA Transcribe Date/Time: Dec 31 2021 6:24P Dictated by : KAITY SHAY MD This examination was interpreted and the report reviewed and electronically signed by: KAITY SHAY MD on Dec 31 2021 6:28PM EST [id number] Normal [facility] FEMALE PELVIS TRANSABD LT Don 12-31-2021 [...] to body habitus. 4. No free fluid. Product Development Director: [facility] Transcribe Date/Time: Dec 31 2021 6:24P Dictated by : KAITY SHAY MD This examination was interpreted and the report reviewed and electronically signed by: KAITY SHAY MD on Dec 31 2021 6:28PM EST [id number] N Normal [facility] US FEMALE PELVIS TRANSVAGon 12-31-2021 US [...] to body habitus. 4. No free fluid. Product Development Director: PSCB Transcribe Date/Time: Dec 31 2021 6:24P Dictated by : KAITY SHAY MD This examination was interpreted and the report reviewed and electronically signed by: KAITY SHAY MD on Dec 31 2021 6:28PM EST [id number] N Normal [facility] Urinalysis complete panel (U )on 12-31-2021 Bacteria LM.HPF (Urine sed) [#/Area] Many Abnormal None Seen [facility] Comment on above: Order Comment: Speci men Type: URINE SPECIMENOrdering Facility: [facility] Address: [address] [place] [address] Performed By: #### 2 4356-8 ####[facility] LABCLIA [id number] [facility] [place] [address] [facility] [place] Bilirubin Ql (U) Negative Normal Negative [facility] Comment on above: Order Comment: Speci men Type: URINE SPECIMENOrdering Facility: [facility] Address: [address] [place] [address] Performed By: #### 2 4356-8 ####[facility] LABCLIA [id number] [facility] [place] [address] [facility] Clarity (Unsp spec) Clear Normal Clear [facility] Comment on above: Order Comment: Speci men Type: URINE SPECIMENOrdering Facility: [facility] Address: [address] [place] [address] Performed By: #### 2 4356-8 ####[facility] LABCLIA [id number] [facility] [place] [address] [facility] Color (U) Yellow Normal Yellow [facility] Comment on above: Order Comment: Speci men Type: URINE SPECIMENOrdering Facility: [facility] Address: [address] [place] [address] Performed By: #### 2 4356-8 ####[facility] LABCLIA [id number] [facility] [place] [address] [facility] Epithelial cells LM.HPF (Urine sed) [#/Area] Many Normal [facility] Comment on above: Order Comment: Speci men Type: URINE SPECIMENOrdering Facility: [facility] Address: [address] [place] [address] Performed By: #### 2 4356-8 ####[facility] LABCLIA [id number] [place] [address] [facility] Glucose Test strip (U) [Mass/Vol] Negative Normal Negative [facility] Comment on above: Order Comment: Speci men Type: URINE SPECIMENOrdering Facility: [facility] Address: [address] [place] [address] Performed By: #### 2 4356-8 ####[facility] LABCLIA [id number] [facility] [place] [address] [facility] Hemoglobin Ql (U) 2+ Abnormal Negative [facility] Comment on above: Order Comment: Speci men Type: URINE SPECIMENOrdering Facility: [facility] Address: [address] [place] [address] Performed By: #### 2 4356-8 ####[facility] LABCLIA [id number] [facility] [place] [place] [address] [place] Ketones Ql (U) Negative Normal Negative [facility] Comment on above: Order Comment: Speci men Type: URINE SPECIMENOrdering Facility: [facility] Address: [address] [place] [address] Performed By: #### 2 4356-8 ####[facility] LABCLIA [id number] [facility] [place] [address] [facility] Leukocyte esterase Test strip Ql (U) Trace Abnormal Negative [facility] Comment on above: Order Comment: Speci men Type: URINE SPECIMENOrdering Facility: [facility] Address: [address] [place] [address] Performed By: #### 2 4356-8 ####[facility] LABCLIA [id number] [facility], [place] [address] [place] Nitrite Ql (U) Negative Normal Negative [facility] Comment on above: Order Comment: Speci men Type: URINE SPECIMENOrdering Facility: [facility] Address: [address] [place] [address] Performed By: #### 2 4356-8 ####[facility] LABCLIA [id number] [place] [address] [facility] [place] pH (U) 6.0 [pH] Normal 5.0-8.0 [facility] Comment on above: Order Comment: Speci men Type: URINE SPECIMENOrdering Facility: [facility] Address: [address] [place] [address] Performed By: #### 2 4356-8 ####[facility] [employer] LABCLIA [id number] [place] [address] [place] [facility] Protein (U) [Mass/Vol] Normal [facility] Comment on above: Order Comment: Speci men Type: URINE SPECIMENOrdering Facility: [facility] Address: [address] [place] [address] Result Comment: Visi ble blood causes falsely elevated results for analyte Protein. Due to this limitation, Protein will not be reported for patients whose urine contains visible blood. Performed By: #### 2 4356-8 ####[facility] LABCLIA [id number] [place] [address] [place] RBC LM.HPF (Urine sed) [#/Area] 11-25 /HPF Abnormal 0-3 /HPF [facility] Comment on above: Order Comment: Speci men Type: URINE SPECIMENOrdering Facility: [facility] Address: [address] [place] [address] Performed By: #### 2 4356-8 ####[facility] LABCLIA [id number] [place] [id number] [place] Specific gravity (U) [Rel density] >=1.030 High 1.005-1.030 [facility] Comment on above: Order Comment: Speci men Type: URINE SPECIMENOrdering Facility: [facility] Address: [address] [place] [address] Performed By: #### 2 4356-8 ####[facility] LABCLIA [id number] [place] [address] [facility] [place] Urobilinogen Ql (U) 0.2 EU/dL Normal 0.2-1.0 EU/dL [facility] Comment on above: Order Comment: Speci men Type: URINE SPECIMENOrdering Facility: [facility] Address: [address] [place] [address] Performed By: #### 2 4356-8 ####[facility] LABCLIA [id number] [place] [address] [place] WBC LM.HPF (Urine sed) [#/Area] 6-10 /HPF Abnormal 0-5 /HPF [facility] Comment on above: Order Comment: Speci men Type: URINE SPECIMENOrdering Facility: [facility] Address: [place] [address] Performed By: #### 2 4356-8 ####[facility] LABCLIA [id number] [place] [address] [place] COVID 19, CHICHO WC(RT COLLECT )on 03-17-2021 SARS-CoV-2 (COVID-19) RNA CHICHO+probe Ql (Unsp spec) Not detected Normal Not Detect [facility] Comment on above: Result Comment: Norm al Reference Range: Not Detected Method:(RT-PCR) real-time reverse transcriptase PCR Luminex SteelHouse Instrument *The Food and Drug Administration (FDA) has issued an Emergency Use Authorization (EAU) for the SteelHouse SARS-CoV-2 Assay for the rapid detection of [...] exposure. Performed By: #### L 3400.2405 #### [facility] [address] [place], [address] HAND RIGHT COMPLETEon 2020 HAND RIGHT COMPLETE EXAM: Right hand HISTORY: Pain after shutting a door on the hand on 01/27/2021. TECHNIQUE: 3 views of the right hand were obtained. FINDINGS: There is no evidence of fracture or dislocation. There are no suspicious bone lesions. Soft tissues are normal. IMPRESSION: No acute findings. Normal [facility] BASIC METABOLIC PANELon 01-0 Anion gap [Moles/Vol] 13 mmol/L Normal 10 - 20 [facility] Comment on above: Performed By: #### B MP #### [address] [address] Calcium [Mass/Vol] 9.5 mg/dL Normal 8.6 - 10.3 [facility] Comment on above: Performed By: #### B MP #### [address] [address] Chloride [Moles/Vol] 104 mmol/L Normal 98 - 107 [facility] Comment on above: Performed By: #### B MP #### [address] [address] Creatinine [Mass/Vol] 0.76 mg/dL Normal 0.50 - 1.05 [facility] Comment on above: Performed By: #### B MP #### [address] [address] GFR- AM. >60 Normal >60 [facility] Comment on above: Result Comment: CALC ULATIONS OF ESTIMATED GFR ARE PERFORMED USING THE MDRD STUDY EQUATION FOR THE IDMS-TRACEABLE CREATININE METHODS. CLIN CHEM 2007;53:766-72 Performed By: #### B MP #### [address] [address] GFR-NON AM. >60 Normal >60 [facility] Comment on above: Performed By: #### B MP #### [address] [address] Glucose [Mass/Vol] 88 mg/dL Normal 74 - 99 [facility] Comment on above: Performed By: #### B MP #### [address] [address] HCO3 (Bld) [Moles/Vol] 27 mmol/L Normal 21 - 32 [facility] Comment on above: Performed By: #### B MP #### [address] [address] Potassium [Moles/Vol] 3.8 mmol/L Normal 3.5 - 5.3 [facility] Comment on above: Performed By: #### B MP #### [address] [address] Sodium [Moles/Vol] 140 mmol/L Normal 136 - 145 [facility] Comment on above: Performed By: #### B MP #### [address] [address] Urea nitrogen [Mass/Vol] 11 mg/dL Normal 6 - 23 [facility] Comment on above: Performed By: #### B MP #### [address] [address] CBCon 10-17-2019 Erythrocyte distribution width (RBC) [Ratio] 12.5 % Normal 11.5 - 14.5 [facility] Comment on above: Performed By: #### C BC #### [address] [address] Hematocrit (Bld) [Volume fraction] 42.6 % Normal 36.0 - 46.0 [facility] Comment on above: Performed By: #### C BC #### [address] [address] Hemoglobin (Bld) [Mass/Vol] 14.5 g/dL Normal 12.0 - 16.0 [facility] Comment on above: Performed By: #### C BC #### [address] [address] MCHC (RBC) [Mass/Vol] 34.1 g/dL Normal 32.0 - 36.0 [facility] Comment on above: Performed By: #### C BC #### [address] [address] MCV (RBC) [Entitic vol] 91 fL Normal 80 - 100 [facility] Comment on above: Performed By: #### C BC #### [address] [address] Platelets (Bld) [#/Vol] 270 10*3/uL Normal 150 - 450 [facility] Comment on above: Performed By: #### C BC #### [address] [address] RBC (Bld) [#/Vol] 4.67 x10E12/L Normal 4.00 - 5.20 [facility] Comment on above: Performed By: #### C BC #### [address] [address] WBC (Bld) [#/Vol] 8.2 10*3/uL Normal 4.4 - 11.3 [facility] Comment on above: Performed By: #### C BC #### [address] [address] [address] HEAD WO CONTRASTon 2019 CT HEAD WO CONTRAST Patient Name: LUZ MTZ STUDY: CT of the head without contrast INDICATION: dizzy/trauma COMPARISON: None ACCESSION NUMBER(S): [id number] ORDERING CLINICIAN: RASHMI FERRERA TECHNIQUE: A CT [...] Electronically signed by: LILI MONTEIRO MD Normal [facility] HCG,URINEon 10-17-2019 Beta HCG ( test) Ql (U) Negative Normal Negative [facility] Comment on above: Performed By: #### H CGU #### [address] [address] Provider Note - ED v2on Provider Note - ED v2 Provider Note - ED v2: Chart Review: ED NOTES ED NOTES: ====HPI==== 19 year old female comes to the ED with c/o a 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 Patient states she believes she has a [...] made to minimize errors. Minor errors in quencher operator may be present. Please call if questions. [...] SIGNIFICANT EVENTS: Past Medical History Description:KIDNEY REFLUX SIGNAL FITTER: Is : no(1) Is : no(1) RESULTS/VITAL [...] at 10/17/2019 01:39 Appearance, Urine CLEAR Specific [place], Urine 1.021 pH, Urine 7.0 Protein, Urine [...] SIGNS: T PRBP SpO2O2(LPM) %FiO2 Method 17-Oct-2019 01:27:00-3428706/80 100 room air, no respiratory support 16-Oct-2019 22:16:00-37.702200524 /78 99 room air, no respiratory support 16-Oct-2019 22:00:00-37.746551921 /78 99 room air, no respiratory support [...] Referenced From Triage - ED 16-Oct-2019 22:16 [facility] Risk Screen - Adult Emergenc yon [...] instruction; written material Cultural Considerationsnone Developmental Considerationsnone Voodoo Considerationsnone Other Learnerssignificant other Learning Assessment (Other Learner): Learning Assessment (Other Learner): Other learner availableyes... Learnersignificant other Factors Influencing Readiness to Learninterest in learning Factors that Impact Ability to Learnnone Devices/Methods Used to Communicatenone Learning Preferencesverbal instruction, written material Cultural Considerationsnone Developmental Considerationsnone Voodoo Considerationsnone Pressure Injury/TB/Substance: Pressure Injury: Do you have a coughno Substance Use Current or Former Historynever: Cigarette/Tobacco, e-Cigarette/Vaping, Alcohol, Street Drugs Admission Risk Screen: Significant IndicatorsComplete CAGE: CAGE: Is this an injured patient at a Trauma Center ([facility]/[place]/[place]): no Electronic Signatures: Lisette Junior (ZAK) (Signed 16-Oct-2019 22:23) Authored: Preferred Language, Advanced Directives, Family Violence Adult, Learning Assessment (Patient), Learning Assessment (Other Learner), Pressure Injury/TB/Substance, CAGE Last Updated: 16-Oct-2019 22:23 by Lisette Junior (ZAK) [facility] Triage - EDon 10-17-2019 Triage - [...] BMI (kg/m2): 29.674 Calculated BSA (m2) 1.75 Dickinson Coma Scale: Best Eye Response: (E4) spontaneous Best Motor Response: (M6) obeys commands Best Verbal Response: (V5) oriented Amador Score: 15 Cough lasting greater than 3 weeks: no Patient immunocompromised related to: N/A Travel outside of [facility]: no Allergies: yes Last menstrual [...] and spouse/significant other Language: Spoken Language Preferred: Honduran Reading Language Preferred: [place]uran [employer] Requested: no spanish medical interpreter was requested MDRO: History of MDRO: [...] 16-Oct-2019 22:22 by Lisette Junior (RN) Normal [facility] UA MICROSCOPICon 10-17-2019 BACTERIA 1+ /HPF Abnormal [facility] Comment on above: Performed By: #### U AMIC #### [place] [address] MUCUS 1+ /LPF Normal [facility] Comment on above: Performed By: #### U AMIC #### [place] [address] RBC (Bld) [#/Vol] 0-5 Normal 0-[address] [facility] Comment on above: Performed By: #### U AMIC #### [place] [address] SQUAMOUS EPITH. CELLS 1+ /HPF Normal [facility] Comment on above: Performed By: #### U AMIC #### [place] [address] TRANSITIONAL EPITH.CELLS Negative Normal [facility] Comment on above: Performed By: #### U AMIC #### [place] [address] WBC (Bld) [#/Vol] 5-20 Abnormal 0-[address] [facility] Comment on above: Performed By: #### U AMIC #### [place] [address] URINALYSISon 10-17-2019 Appearance (U) CLEAR Normal CLEAR [facility] Comment on above: Result Comment: This is a corrected result. Previous value was HAZY, verified at 10/17/2019 01:39 Performed By: #### U A #### [place] [address] Color (U) YELLOW Normal STRAW,YELLOW [facility] Comment on above: Result Comment: This is a corrected result. Previous value was Red, verified at 10/17/2019 01:39 Performed By: #### U A #### [place] [address] Bilirubin (U) [Mass/Vol] Negative Normal NEGATIVE [facility] Comment on above: Performed By: #### U A #### [place] [address] BLOOD SMALL(1+) Abnormal NEGATIVE [facility] Comment on above: Performed By: #### U A #### [place] [address] Glucose [Mass/Vol] Negative Normal NEGATIVE [facility] Comment on above: Performed By: #### U A #### [place] [address] Ketones Ql (U) Negative Normal NEGATIVE [facility] Comment on above: Performed By: #### U A #### [place] [address] Leukocyte esterase Test strip Ql (U) TRACE Abnormal NEGATIVE [facility] Comment on above: Performed By: #### U A #### [place] [address] Nitrite Ql (U) Negative Normal NEGATIVE [facility] Comment on above: Performed By: #### U A #### [address] [address] pH (Bld) 7.0 Normal 5.0 - 8.0 [facility] Comment on above: Performed By: #### U A #### [address] [address] Protein (U) [Mass/Vol] Negative Normal NEGATIVE [facility] Comment on above: Performed By: #### U A #### [address] [address] Specific gravity (U) [Rel density] 1.021 Normal 1.005 - 1.035 [facility] Comment on above: Performed By: #### U A #### [address] [address] Urobilinogen Qn (U) <2.0 Normal 0.0 - 1.9 [facility] Comment on above: Performed By: #### U A #### [address] [address] URINE CULTURE,BACTERIALon URINE CULTURE,BACTERIAL TEST URINE CULTURE,BACTERIAL WAS CANCELLED, 10/19/2019 16:21 PATIENT DISCHARGED. PATIENT: LUZ MTZ [facility]#: [id number] : 89 AGE: SEX: F ORDERED BY: RASHMI FERRERA SOURCE: URINE COLLECTED: 10/17/19 02:24 ANTIBIOTICS AT JAMIE.: RECEIVED : SITE: Clean Catch/Voided R E S U L T S URINE CULTURE,BACTERIAL CANCELLED 10/19/19 16:21 Normal [facility] Comment on above: Performed By: #### U [facility] #### [facility] [address] [place] [address] XR Foot 3+ Views Righton XR Foot 3+ Views Right Exam Date/Time: 04/28/2019 13:58 EDT Reason for Exam: Pain, Traumatic Report STUDY: XR Foot 3+ Views Right;; 04/28/2019 1:58 pm INDICATION: Pain, Traumatic. COMPARISON: None. ACCESSION NUMBER(S): [id number] ORDERING CLINICIAN: Alex Grubbs FINDINGS: No acute fracture or malalignment. No radiopaque foreign body. IMPRESSION: No acute osseous abnormality FINAL REPORT Dictated: 04/28/2019 2:30 pm Nancy Mills MD Signed (Electronic Signature): 04/28/2019 2:30 pm Signed by: Nancy Mills MD Technologist: JOHNSON Normal [facility] ABO/Rh Echoon 12-25-2018 ABO/Rh E Interp... Positive Normal [facility] Comment on above: Performed By: #### 2 133411 #### [facility] [address] [place] [address] BhCG Quanton 12-25-2018 Beta hCG Qnt <0.6 Normal 0.0-2.9 [facility] Comment on above: Performed By: #### 2 439815 #### [facility] [address] [place] [address] UA Completeon 12-25-2018 Color (U) Yellow Normal Yellow [facility] Comment on above: Performed By: #### 2 621993 #### [facility] [address] [place] [address] Glucose (U) [Mass/Vol] Negative Normal Negative [facility] Comment on above: Performed By: #### 2 487582 #### [facility] [address] [place] [address] Ketones Ql (U) Negative Normal Negative [facility] Comment on above: Performed By: #### 2 475157 #### [facility] [address] [place] [address] RBC (U) [#/Vol] /uL Abnormal 0-3 [facility] Comment on above: Performed By: #### 2 850876 #### [facility] [address] [place] [address] UA Blood 3+ Normal Negative [facility] Comment on above: Performed By: #### 2 296364 #### [facility] [address] [place] [address] UA Bacteria Trace Abnormal None [facility] Comment on above: Performed By: #### 2 523998 #### [facility] [address] [place] [address] UA Clarity Clear Normal Clear [facility] Comment on above: Performed By: #### 2 769746 #### [facility] [address] [place] [address] UA Leuk Est Negative Normal Negative [facility] Comment on above: Performed By: #### 2 211189 #### [facility] [address] [place] [address] UA Mucous Trace Abnormal Trace [facility] Comment on above: Performed By: #### 2 773948 #### [facility] [address] [place] [address] UA Nitrite Negative Normal Negative [facility] Comment on above: Performed By: #### 2 921466 #### [facility] [address] [place] [address] UA pH 8.0 Normal 4.6-8.0 [facility] Comment on above: Performed By: #### 2 397500 #### [facility] [address] [place] [address] UA Protein Negative Normal Negative [facility] Comment on above: Performed By: #### 2 877194 #### [facility] [address] [place] [address] UA Spec Grav 1.012 Normal 1.003-1.030 [facility] Comment on above: Performed By: #### 2 531147 #### [facility] [address] [place] [address] UA Squam Epithelial 0-5 Normal 0-5 [facility] Comment on above: Performed By: #### 2 291459 #### [facility] [address] [place] [address] UA Urobilinogen Negative Normal [facility] Comment on above: Result Comment: Due to a manufacturing issue, low positive urobilinogen results may be fasely positive. Correlate with urine bilirubin and additional clinical/laboratory findings to assess the risk of hemolytic anemia or liver disease. If clinically indicated, repeat testing with an alternate method is available by contacting the laboratory within 24 hours. Performed By: #### 2 260340 #### [facility] [address] [place] [address] UA WBC 5-10 Abnormal 0-5 [facility] Comment on above: Performed By: #### 2 463415 #### [facility] [place] [address] Urobilinogen Qn (U) Negative Normal Negative [facility] Comment on above: Performed By: #### 2 223478 #### [facility] [place] [address] C Urineon 09-05-2018 C Urine Final Report: Light growth of Normal skin den isolated Normal [facility] Comment on above: Performed By: #### 2 677727 #### [facility] [place] [address] .Manual Abson 09-03-2018 Basophil Abs Man 0.0 10x3/ Normal 0.0-0.2 [facility] Comment on above: Order Comment: Order Added by Discern Expert. Performed By: #### 3 [id number] #### [facility] [address] [place] [address] Eos Abs Man 0.0 10x3/ Normal 0.0-0.5 [facility] Comment on above: Order Comment: Order Added by Discern Expert. Performed By: #### 3 [id number] #### [facility] [address] [place] [address] Lymph Abs Man 0.5 10x3/ Low 1.2-3.4 [facility] Comment on above: Order Comment: Order Added by Discern Expert. Performed By: #### 3 [id number] #### [facility] [address] [place] [address] Pinal Abs Man 0.4 10x3/ Normal 0.0-0.7 [facility] Comment on above: Order Comment: Order Added by Discern Expert. Performed By: #### 3 [id number] #### [facility] [address] [place] [address] Segs Abs Man 7.8 10x3/ High 1.4-6.5 [facility] Comment on above: Order Comment: Order Added by Discern Expert. Performed By: #### 3 [id number] #### [facility] [address] [place] [address] BMPon 09-03-2018 Anion gap [Moles/Vol] 14 mmol/L Normal 10-20 [facility] Comment on above: Performed By: #### 2 389054 #### [facility] [address] [place] [address] Calcium [Mass/Vol] 8.8 mg/dL Normal 8.5-10.7 [facility] Comment on above: Performed By: #### 2 570822 #### [facility] [address] [place] [address] Chloride [Moles/Vol] 102 mmol/L Normal 98-107 [facility] Comment on above: Performed By: #### 2 995168 #### [facility] [address] [place] [address] CO2 [Moles/Vol] 24.0 mmol/L Normal 21.0-32.0 [facility] Comment on above: Performed By: #### 2 442419 #### [facility] [address] [place] [address] Creatinine [Mass/Vol] 0.8 mg/dL Normal 0.5-1.1 [facility] Comment on above: Performed By: #### 2 166357 #### [facility] [address] [place] [address] Glucose [Mass/Vol] 100 mg/dL High 70-99 [facility] Comment on above: Performed By: #### 2 [address] #### [facility] [address] [place] [address] Potassium [Moles/Vol] 3.2 mmol/L Low 3.5-5.3 [facility] Comment on above: Performed By: #### 2 785448 #### [facility] [address] [place] [address] Sodium [Moles/Vol] 137 mmol/L Normal 136-145 [facility] Comment on above: Performed By: #### 2 670034 #### [facility] [address] [place] [address] Urea nitrogen [Mass/Vol] 11 mg/dL Normal 6-23 [facility] Comment on above: Performed By: #### 2 814129 #### [facility] [place] [address] Urea nitrogen/Creatinine [Mass ratio] 13.8 ratio Normal 5.4-30.0 [facility] Comment on above: Performed By: #### 2 183884 #### [facility] [address] [place] [address] CBC w/ Auto Diffon 8 Erythrocyte distribution width (RBC) [Ratio] 13.0 % Normal 11.5-14.5 [facility] Comment on above: Performed By: #### 2 497055 #### [facility] [address] [place] [address] Hematocrit (Bld) [Volume fraction] 37.2 % Normal 36.0-48.0 [facility] Comment on above: Performed By: #### 2 787878 #### [facility] [address] [place] [address] Hemoglobin (Bld) [Mass/Vol] 12.7 g/dL Normal 12.0-16.0 [facility] Comment on above: Performed By: #### 2 803293 #### [facility] [address] [place] [address] MCH (RBC) [Entitic mass] 31.2 pg High 27.0-31.0 [facility] Comment on above: Performed By: #### 2 836850 #### [facility] [address] [place] [address] MCHC (RBC) [Mass/Vol] 34.2 g/dL Normal 33.0-37.0 [facility] Comment on above: Performed By: #### 2 626613 #### [facility] [address] [place] [address] MCV (RBC) [Entitic vol] 91.4 fL Normal 78.0-100.0 [facility] Comment on above: Performed By: #### 2 677409 #### [facility] [place] [address] Platelet mean volume (Bld) [Entitic vol] 8.2 fL Normal 7.4-11.0 [facility] Comment on above: Performed By: #### 2 976269 #### [facility] [place] [address] Platelets (Bld) [#/Vol] 201 E3/mcL Normal 130-400 [facility] Comment on above: Performed By: #### 2 992298 #### [facility] [place] [address] RBC (Bld) [#/Vol] 4.07 E6/mcL Normal 3.90-5.40 [facility] Comment on above: Performed By: #### 2 921774 #### [facility] [place] [address] WBC (Bld) [#/Vol] 8.9 E3/mcL Normal 3.6-11.0 [facility] Comment on above: Performed By: #### 2 394950 #### [facility] [address] [place] [address] [address] [address] Abdomen/Pelvis w/ Contras ton 09-03-2018 CT Abdomen/Pelvis w/ Contrast Exam Date/Time: 09/03/2018 21:35 EST Reason for Exam: Pain Report STUDY: CT Abdomen/Pelvis w/ Contrast; 09/03/2018 9:35 pm INDICATION: Pain. Pain COMPARISON: No comparison available ACCESSION NUMBER(S): [id number] ORDERING CLINICIAN: Miles Horn TECHNIQUE: CT of [...] by: Joaquin Lobo MD Technologist: JOHN, Normal [facility] Hep Func Panelon 09-03-2018 Albumin [Mass/Vol] 4.3 g/dL Normal 3.4-5.0 [facility] Comment on above: Performed By: #### 2 253206 #### [facility] [address] [place] [address] Albumin/Globulin [Mass ratio] 1.7 {ratio} Normal 1.1-1.9 [facility] Comment on above: Performed By: #### 2 619055 #### [facility] [address] [place] [address] Alk Phos 59 Int._Unit/L Normal 33-139 [facility] Comment on above: Performed By: #### 2 854851 #### [facility] [address] [place] [address] ALT [Catalytic activity/Vol] 18 Int._Unit/L Normal 7-45 [facility] Comment on above: Performed By: #### 2 627271 #### [facility] [address] [place] [address] AST [Catalytic activity/Vol] 18 Int._Unit/L Normal 9-39 [facility] Comment on above: Performed By: #### 2 325847 #### [facility] [address] [place] [address] Bili Direct 0.16 mg/dL Normal 0.00-0.30 [facility] Comment on above: Performed By: #### 2 565717 #### [facility] [address] [place] [address] Bili Indirect 0.7 Normal [facility] Comment on above: Performed By: #### 2 624470 #### [facility] [id number] [place] [address] Bili Total 0.9 mg/dL Normal 0.0-1.2 [facility] Comment on above: Performed By: #### 2 [id number] #### K[address]Y [id number] [place] [address] Globulin (S) [Mass/Vol] 3.0 g/dL Normal 2.0-4.0 [facility] Comment on above: Performed By: #### 2 [id number] #### KOBYTiny [address] [address] Protein [Mass/Vol] 6.8 g/dL Normal 6.4-8.2 [facility] Comment on above: Performed By: #### 2 [id number] #### KOBY [address] [address] Influenza A&B Agon 8 Influenzae A Ag Negative Normal Negative [facility] Comment on above: Performed By: #### 2 [id number] #### [address] [place] [address] Influenzae B Ag Negative Normal Negative [facility] Comment on above: Performed By: #### 2 [id number] #### [facility] [address] [place] [address] Lactic Acidon 09-03-2018 Lactate [Moles/Vol] 0.8 mmol/L Normal 0.4-2.0 [facility] Comment on above: Performed By: #### 2 [id number] #### [facility] [address] [place] [address] Lipase Levelon 09-03-2018 Lipase Lvl 12 Int._Unit/L Normal 9-82 [facility] Comment on above: Performed By: #### 2 [id number] #### KOBY [facility] [address] [place] [address] Manual Diffon 09-03-2018 Band form neutrophils/100 WBC (Bld) 1 Normal 0-1 [facility] Comment on above: Order Comment: Order Added by Discern Expert. Performed By: #### 2 [id number] #### KOBY RemHemo [address] [place] [address] Basophil Man 0 % Normal 0-1 [facility] Comment on above: Order Comment: Order Added by Discern Expert. Performed By: #### 2 [id number] #### KOBY RemHemo [address] [place] [address] Eosinophils/100 WBC (Bld) 0 % Normal 0-5 [facility] Comment on above: Order Comment: Order Added by Discern Expert. Performed By: #### 2 [id number] #### KOBY RemHemo [address] [place] [address] Lymphocytes/100 WBC (Bld) 6 % Low 14-48 [facility] Comment on above: Order Comment: Order Added by Discern Expert. Performed By: #### 2 [id number] #### KOBY RemHemo [address] [place] [address] Monocyte Man 5 % Normal 1-11 [facility] Comment on above: Order Comment: Order Added by Discern Expert. Performed By: #### 2 [id number] #### KOBY RemHemo [address] [place] [address] RBC morphology finding Nom (Bld) NORMAL Normal [facility] Comment on above: Order Comment: Order Added by Discern Expert. Performed By: #### 2 [id number] #### KOBY RemHemo [address] [place] [address] Segs Man 88 % High 37-75 [facility] Comment on above: Order Comment: Order Added by Discern Expert. Performed By: #### 2 [id number] #### KOBY RemHemo [address] [place] [address] TSHon 09-03-2018 TSH Qn 0.89 mcIU/mL Normal 0.30-5.60 [facility] Comment on above: Order Comment: With T4fr Reflex Performed By: #### 2 [id number] #### KOBY [facility] [address] [place] [address] U BhCG Qlton 09-03-2018 HCG.beta subunit Qn Negative Normal Neg [facility] Comment on above: Performed By: #### 2 [id number] #### KOBY [facility] [address] [place] [address] UA Completeon 09-03-2018 Color (U) Yellow Normal Yellow [facility] Comment on above: Order Comment: Strai ght Cath as needed Performed By: #### 2 [id number] #### KOBY [facility] [address] [place] [address] Glucose (U) [Mass/Vol] Negative Normal Negative [facility] Comment on above: Order Comment: Strai ght Cath as needed Performed By: #### 2 [id number] #### KOBY [facility] [address] [place] [address] Ketones Ql (U) 1+ Abnormal Negative [facility] Comment on above: Order Comment: Strai ght Cath as needed Performed By: #### 2 [id number] #### KOBY [facility] [address] [place] [address] RBC (U) [#/Vol] 10-20 Abnormal 0-3 [facility] Comment on above: Order Comment: Strai ght Cath as needed Performed By: #### 2 [id number] #### KOBY [facility] [address] [place] [address] UA Blood 1+ Abnormal Negative [facility] Comment on above: Order Comment: Strai ght Cath as needed Performed By: #### 2 [id number] #### KOBY [facility] [address] [place] [address] UA Ascorbic Acid 40 mg/dL High <=19 [facility] Comment on above: Order Comment: Strai ght Cath as needed Performed By: #### 2 [id number] #### KOBY [facility] [address] [place] [address] UA Clarity SltCloudy Abnormal Clear [facility] Comment on above: Order Comment: Strai ght Cath as needed Performed By: #### 2 [id number] #### KOBY [facility] [address] [place] [address] UA Leuk Est 1+ Abnormal Negative [facility] Comment on above: Order Comment: Strai ght Cath as needed Performed By: #### 2 [id number] #### KOBY [facility] [address] [place] [address] UA Mucous Trace Abnormal Trace [facility] Comment on above: Order Comment: Strai ght Cath as needed Performed By: #### 2 [id number] #### KOBY [facility] [address] [place] [address] UA Nitrite Negative Normal Negative [facility] Comment on above: Order Comment: Strai ght Cath as needed Performed By: #### 2 [id number] #### KOBY [facility] [address] [place] [address] UA pH 7.0 Normal 4.6-8.0 [facility] Comment on above: Order Comment: Strai ght Cath as needed Performed By: #### 2 [id number] #### KOBY [facility] [address] [place] [address] UA Protein Negative Normal Negative [facility] Comment on above: Order Comment: Strai ght Cath as needed Performed By: #### 2 [id number] #### KOBY [facility] [address] [place] [address] UA Spec Grav 1.015 Normal 1.003-1.030 [facility] Comment on above: Order Comment: Strai ght Cath as needed Performed By: #### 2 [id number] #### KOBY [facility] [address] [place] [address] UA Squam Epithelial 0-5 Normal 0-5 [facility] Comment on above: Order Comment: Strai ght Cath as needed Performed By: #### 2 [id number] #### KOBY [facility] [address] [place] [address] UA Urobilinogen Negative Normal [facility] Comment on above: Order Comment: [...] within 24 hours. Performed By: #### 2 [id number] #### [facility] UA WBC 20-50 Abnormal 0-5 [facility] Comment on above: Order Comment: Strai ght Cath as needed Performed By: #### 2 [id number] #### KOBY [facility] Urobilinogen Qn (U) Negative Normal Negative [facility] Comment on above: Order Comment: Strai ght Cath as needed Performed By: #### 2 [id number] #### KOBY [facility]on[facility] eGFRon 09-03-2018 GFR/1.73 sq M predicted among non-blacks MDRD (S/P/Bld) [Vol rate/Area] mL/min/{1.73_m2} Normal [facility] Comment on above: Order Comment: Order added by Discern Expert. Performed By: #### 1 [id number] #### KOBY [facility] [place] [address] zzplt morphon 09-03-2018 Platelet morphology finding Nom (Bld) NORMAL Normal [facility] Comment on above: Performed By: #### 9 [id number] #### KOBY MckeonHemo [facility] [address] Platelets (Bld) [#/Vol] NORMAL Normal [facility] Comment on above: Performed By: #### 9 [id number] #### KOBY MckeonHemo [facility] [place] [address] Vital Signs Date Time Vital Sign Value Performing Clinician Facility 04-02-2023 16:00-0400 Body temperature 97.88 [degF] SUNIL GRAHAM MD [facility] 04-02-2023 16:00-0400 Diastolic Blood Pressure Non-Invasive 66 1 SUNIL GRAHAM MD [facility] 04-02-2023 16:00-0400 Heart rate 77 /min SUNIL GRAHAM MD [facility] 04-02-2023 16:00-0400 Respiratory rate 18 /min SUNIL GRAHAM MD [facility] 04-02-2023 16:00-0400 Systolic Blood Pressure Non-Invasive 110 1 SUNIL GRAHAM MD [facility] 04-02-2023 10:00-0400 Body temperature 97.7 [degF] SUNIL GRAHAM MD [facility] 04-02-2023 10:00-0400 Diastolic Blood Pressure Non-Invasive 48 1 SUNIL GRAHAM MD [facility] 04-02-2023 10:00-0400 Heart rate 81 /min SUNIL GRAHAM MD [facility] 04-02-2023 10:00-0400 Systolic Blood Pressure Non-Invasive 97 1 SUNIL GRAHAM MD [facility] 04-02-2023 00:31-0400 Body temperature 97.88 [degF] SUNIL GRAHAM MD [facility] 04-02-2023 00:31-0400 Diastolic Blood Pressure Non-Invasive 59 1 SUNIL GRAHAM MD [facility] 04-02-2023 00:31-0400 Heart rate 68 /min SUNIL GRAHAM MD [facility] 04-02-2023 00:31-0400 Reason For Taking VItal Signs SUNIL GRAHAM MD [facility] 04-02-2023 00:31-0400 Respiratory rate 16 /min SUNIL GRAHAM MD [facility] 04-02-2023 00:31-0400 Systolic Blood Pressure Non-Invasive 113 1 SUNIL GRAHAM MD [facility] 04-01-2023 16:20-0400 Reason For Taking VItal Signs SUNIL GRAHAM MD [facility] 04-01-2023 08:41-0400 Reason For Taking VItal Signs SUNIL GRAHAM MD [facility] 03-31-2023 23:30-0400 Body temperature 97.88 [degF] SUNIL GRAHAM MD [facility] 03-31-2023 15:25-0400 Body temperature 98.42 [degF] SUNIL GRAHAM MD [facility] 03-31-2023 08:36-0400 Body temperature 98.24 [degF] SUNIL GRAHAM MD [facility] 03-30-2023 07:49-0400 Body height 155 cm SUNIL GRAHAM MD [facility] 03-30-2023 07:49-0400 Body weight 78 kg SUNIL GRAHAM MD [facility] 03-30-2023 07:49-0400 Body weight 32.47 kg/m2 SUNIL GRAHAM MD [facility] 03-07-2023 20:03-0400 Body temperature 98.6 [degF] MARTINEZ NÚÑEZ MD [facility] 03-07-2023 20:03-0400 Diastolic Blood Pressure Non-Invasive 69 1 MARTINEZ NÚÑEZ MD [facility] 03-07-2023 20:03-0400 Heart rate 91 /min MARTINEZ NÚÑEZ MD [facility] 03-07-2023 20:03-0400 Respiratory rate 18 /min MARTINEZ NÚÑEZ MD [facility] 03-07-2023 20:03-0400 Systolic Blood Pressure Non-Invasive 115 1 MARTINEZ NÚÑEZ MD [facility] 03-07-2023 20:02-0400 Body height 155 cm MARTINEZ NÚÑEZ MD [facility] 03-07-2023 20:02-0400 Body weight 79.5 kg MARTINEZ NÚÑEZ MD [facility] 03-07-2023 20:02-0400 Body weight 33.09 kg/m2 MARTINEZ NÚÑEZ MD [facility] 03-06-2023 17:39-0400 Body temperature 98.06 [degF] MARTINEZ NÚÑEZ MD [facility] 03-06-2023 17:39-0400 Diastolic Blood Pressure Non-Invasive 76 1 MARTINEZ NÚÑEZ MD [facility] 03-06-2023 17:39-0400 Heart rate 125 /min MARTINEZ NÚÑEZ MD [facility] 03-06-2023 17:39-0400 Systolic Blood Pressure Non-Invasive 113 1 MARTINEZ NÚÑEZ MD [facility] 03-06-2023 17:37-0400 Body height 155 cm MARTINEZ NÚÑEZ MD [facility] 03-06-2023 17:37-0400 Body weight 79.5 kg MARTINEZ NÚÑEZ MD [facility] 03-06-2023 17:37-0400 Body weight 33.09 kg/m2 MARTINEZ NÚÑEZ MD [facility] 01-26-2023 03:20-0400 Diastolic Blood Pressure Non-Invasive 67 1 MARTINEZ NÚÑEZ MD [facility] 01-26-2023 03:20-0400 Heart rate 107 /min MARTINEZ NÚÑEZ MD [facility] 01-26-2023 03:20-0400 Systolic Blood Pressure Non-Invasive 113 1 MARTINEZ NÚÑEZ MD [facility] 01-26-2023 02:34-0400 Diastolic Blood Pressure Non-Invasive 71 1 MARTINEZ NÚÑEZ MD [facility] 01-26-2023 02:34-0400 Heart rate 95 /min MARTINEZ NÚÑEZ MD [facility] 01-26-2023 02:34-0400 Systolic Blood Pressure Non-Invasive 116 1 MARTINEZ NÚÑEZ MD [facility] 01-26-2023 02:15-0400 Body temperature 98.24 [degF] MARTINEZ NÚÑEZ MD [facility] 01-26-2023 01:46-0400 Diastolic Blood Pressure Non-Invasive 42 1 MARTINEZ NÚÑEZ MD [facility] 01-26-2023 01:46-0400 Heart rate 101 /min MARTINEZ NÚÑEZ MD [facility] 01-26-2023 01:46-0400 Systolic Blood Pressure Non-Invasive 114 1 MARTINEZ NÚÑEZ MD [facility] 01-26-2023 01:16-0400 Respiratory rate 16 /min MARTINEZ NÚÑEZ MD [facility] 01-26-2023 00:59-0400 Body height 155 cm MARTINEZ NÚÑEZ MD [facility] 01-26-2023 00:59-0400 Body weight 77.3 kg MARTINEZ NÚÑEZ MD [facility] 01-26-2023 00:59-0400 Body weight 32.17 kg/m2 MARTINEZ NÚÑEZ MD [facility] 11-18-2022 12:08-0500 Body temperature 98.24 [degF] SUNIL GRAHAM MD [facility] 11-18-2022 12:08-0500 Diastolic Blood Pressure Non-Invasive 82 1 SUNIL GRAHAM MD [facility] 11-18-2022 12:08-0500 Heart rate 108 /min SUNIL GRAHAM MD [facility] 11-18-2022 12:08-0500 Respiratory rate 18 /min SUNIL GRAHAM MD [facility] 11-18-2022 12:08-0500 Systolic Blood Pressure Non-Invasive 103 1 SUNIL GRAHAM MD [facility] 10-14-2022 11:01-0500 Body weight 80.06 kg Gretel Quintana MD Work Phone: [facility] 10-14-2022 11:01-0500 Diastolic blood pressure 56 mm[Hg] Gretel Quintana MD Work Phone: [facility] 10-14-2022 11:01-0500 Respiratory rate 18 /min Gretel Quintana MD Work Phone: [facility] 10-14-2022 11:01-0500 Systolic blood pressure 110 mm[Hg] Gretel Quintana MD Work Phone: [facility] 08-19-2022 13:06-0500 Body weight 85.5 kg Braulio Hollingsworth MD Work Phone: [facility] 08-19-2022 13:06-0500 Diastolic blood pressure 82 mm[Hg] Braulio Hollingsworth MD Work Phone: [facility] 08-19-2022 13:06-0500 Systolic blood pressure 102 mm[Hg] Braulio Hollingsworth MD Work Phone: [facility] 08-09-2022 18:09-0400 Diastolic blood pressure 74 mm[Hg] No Primary Care Physician [facility] Work Phone: 08-09-2022 18:09-0400 Heart rate 107 /min No Primary Care Physician [facility] Work Phone: 08-09-2022 18:09-0400 Respiratory rate 18 /min No Primary Care Physician [facility] Work Phone: 08-09-2022 18:09-0400 SaO2% (BldA) [Mass fraction] 94 % No Primary Care Physician [facility] Work Phone: 08-09-2022 18:09-0400 Systolic blood pressure 120 mm[Hg] No Primary Care Physician [facility] Work Phone: 08-09-2022 13:51-0400 Body height 154.94 cm No Primary Care Physician [facility] Work Phone: 08-09-2022 13:51-0400 Body mass index (BMI) [Ratio] 35.9 kg/m2 No Primary Care Physician [facility] Work Phone: 08-09-2022 13:51-0400 Body temperature 98.2 [degF] No Primary Care Physician [facility] Work Phone: 08-09-2022 13:51-0400 Body weight 86.4 kg No Primary Care Physician [facility] Work Phone: 08-04-2022 13:54-0400 Diastolic blood pressure 76 mm[Hg] Melania Mitchell MD Work Phone: [facility] 08-04-2022 13:54-0400 Heart rate 100 /min Melania Mitchell MD Work Phone: [facility] 08-04-2022 13:54-0400 Respiratory rate 16 /min Melania Mitchell MD Work Phone: [facility] 08-04-2022 13:54-0400 SaO2% (BldA) [Mass fraction] 98 % Melania Mitchell MD Work Phone: [facility] 08-04-2022 13:54-0400 Systolic blood pressure 102 mm[Hg] Melania Mitchell MD Work Phone: [facility] 08-04-2022 10:48-0400 Body height 154.9 cm Melania Mitchell MD Work Phone: [facility] 08-04-2022 10:48-0400 Body mass index (BMI) [Ratio] 30.23 kg/m2 Melania Mitchell MD Work Phone: [facility] 08-04-2022 10:48-0400 Body temperature 98.2 [degF] Melania Mitchell MD Work Phone: [facility] 08-04-2022 10:48-0400 Body weight 72.58 kg Melania Mitchell MD Work Phone: [facility] 07-08-2022 15:30-0400 Body temperature 98.2 [degF] No Primary Care Physician [facility] Work Phone: 07-08-2022 15:30-0400 Diastolic blood pressure 78 mm[Hg] No Primary Care Physician [facility] Work Phone: 07-08-2022 15:30-0400 Heart rate 89 /min No Primary Care Physician [facility] Work Phone: 07-08-2022 15:30-0400 Respiratory rate 14 /min No Primary Care Physician [facility] Work Phone: 07-08-2022 15:30-0400 SaO2% (BldA) [Mass fraction] 98 % No Primary Care Physician [facility] Work Phone: 07-08-2022 15:30-0400 Systolic blood pressure 124 mm[Hg] No Primary Care Physician [facility] Work Phone: 06-30-2022 00:36-0400 Diastolic blood pressure 76 mm[Hg] No Primary Care Physician [facility] Work Phone: 06-30-2022 00:36-0400 Heart rate 79 /min No Primary Care Physician [facility] Work Phone: 06-30-2022 00:36-0400 Respiratory rate 16 /min No Primary Care Physician [facility] Work Phone: 06-30-2022 00:36-0400 SaO2% (BldA) [Mass fraction] 96 % No Primary Care Physician [facility] Work Phone: 06-30-2022 00:36-0400 Systolic blood pressure 113 mm[Hg] No Primary Care Physician [facility] Work Phone: 06-29-2022 23:48-0400 Body temperature 98.9 [degF] No Primary Care Physician [facility] Work Phone: 06-29-2022 18:00-0400 Body mass index (BMI) [Ratio] 33 kg/m2 No Primary Care Physician [facility] Work Phone: 06-29-2022 18:00-0400 Body weight 79.37 kg No Primary Care Physician [facility] Work Phone: Encounters Encounter Date Encounter Type Care Provider Facility Start: 08-21-2025 End: 08-21-2025 ambulatory No [facility] Care Phys[facility] Start: 08-15-2025 ambulatory No Primary Care Physici an Facility:[facility] Start: 08-01-2025 End: 08-01-2025 ambulatory No Primary Care Physician [facility] Start: 08-01-2025 End: 08-01-2025 ambulatory No Primary Care Physician Facility:[facility] Start: 07-30-2025 End: 07-30-2025 ambulatory No Primary Care Physician Facility:[facility] Start: 07-29-2025 End: 07-30-2025 ambulatory No Primary Care Physician Facility:[facility] Start: 07-09-2025 End: 07-09-2025 ambulatory No Primary Care Physician Facility:[facility] Start: 07-09-2025 End: 07-09-2025 ambulatory Geraldine Bradford Facility:[facility] Start: 07-03-2025 End: 07-03-2025 ambulatory Remedios Garcia [employer]OUNT EXEC[employer]IVE [employer] Facility:[facility] Start: 07-03-2025 End: 07-03-2025 ambulatory Remedios Duttons ACCOUNT EXEC[employer]IVE [employer] SALES Facility:[facility] Start: 06-26-2025 End: 06-26-2025 ambulatory [facility] Start: 06-20-2025 End: 06-20-2025 ambulatory [facility] Start: 06-06-2025 End: 06-06-2025 ambulatory Rama Stuart Facility:[facility] Start: 05-30-2025 End: 05-30-2025 ambulatory No Primary Care Physician Facility:[facility] Start: 05-30-2025 End: 05-30-2025 ambulatory Rama Stuart Facility:[facility] Start: 05-14-2025 End: 05-14-2025 ambulatory No Primary Care Physician Facility:[facility] Start: 05-14-2025 End: 05-14-2025 ambulatory Geraldine Bradford Facility:[facility] Start: 05-07-2025 End: 05-07-2025 ambulatory No Primary Care Physician Facility:[facility] Start: 05-07-2025 End: 05-07-2025 ambulatory No Primary Care Physician Facility:[facility] Start: 04-09-2025 End: 04-09-2025 ambulatory No Primary Care Physician Facility:[facility] Start: 04-09-2025 End: 04-09-2025 ambulatory Remedios Garcia ACCOUNT EXEC[employer]IVE [employer] Facility:[facility] Start: 03-15-2025 End: 03-15-2025 ambulatory No Primary Care Physician Facility:[facility] Start: 03-13-2025 End: 03-13-2025 ambulatory No Primary Care Physician Facility:[facility] Start: 03-13-2025 End: 03-13-2025 ambulatory No Primary Care Physician Facility:[facility] Start: 01-02-2025 End: 01-02-2025 Emergency department patient visit No Primary Care Physician Facility:[facility] Start: 08-03-2024 End: 08-18-2024 ambulatory KIRSTEN MAST PRINT DEVELOPER-PHARMACY INNOVATION ASSISTANT Facility[facility] Start: 08-03-2024 End: 08-18-2024 Physical therapy management KIRSTEN MAST PRINT DEVELOPER-PHARMACY INNOVATION ASSISTANT [facility] Start: 02-18-2024 End: 02-19-2024 ambulatory KIRSTEN MAST PRINT DEVELOPER-PHARMACY INNOVATION ASSISTANT Facility:[facility] Start: 02-18-2024 End: 02-18-2024 Patient encounter procedure KIRSTEN MAST PRINT DEVELOPER-PHARMACY INNOVATION ASSISTANT [facility] Start: 10-15-2023 End: 10-16-2023 ambulatory OSMAN BRIAN PMHNP-BC Facility:[facility] Start: 10-15-2023 End: 10-15-2023 Patient encounter procedure OSMAN YUND PMHNP-BC [facility] Start: 03-30-2023 End: 04-02-2023 Evaluation and management of inpatient MARTINEZ NÚÑEZ MD Facility:[facility] Start: 03-30-2023 End: 04-02-2023 Evaluation and management of inpatient SUNIL GRAHAM MD [facility] Start: 03-18-2023 End: 03-18-2023 ambulatory MARTINEZ NÚÑEZ MD Facility:[facility] Start: 03-15-2023 End: 03-16-2023 ambulatory SUNIL GRAHAM MD Facility:[facility] Start: 03-15-2023 End: 03-15-2023 Patient encounter procedure SUNLI GRAHAM MD [facility] Start: 03-09-2023 End: 03-14-2023 ambulatory LONG DICKERSON MD Facility:[facility] Start: 03-09-2023 End: 03-10-2023 ambulatory LONG DICKERSON MD Facility:[facility] Start: 03-09-2023 End: 03-13-2023 Outreach Lab LONG DICKERSON MD [facility] Start: 03-09-2023 End: 03-09-2023 Patient encounter procedure LONG DICKERSON MD [facility] Start: 03-07-2023 End: 03-07-2023 ambulatory MARTINEZ NÚÑEZ MD Facility:[facility] Start: 03-07-2023 End: 03-07-2023 SAME DAY STAY MARTINEZ NÚÑEZ MD [facility] Start: 03-06-2023 End: 03-06-2023 ambulatory MARTINEZ NÚÑEZ MD Facility:[facility] Start: 03-06-2023 End: 03-06-2023 SAME DAY STAY MARTINEZ NÚÑEZ MD [facility] Start: 01-26-2023 End: 01-26-2023 SAME DAY STAY MARTINEZ NÚÑEZ MD [facility] Start: 01-25-2023 End: 01-25-2023 Patient encounter procedure SUNIL GRAHAM MD [facility] Start: 01-19-2023 End: 01-19-2023 Patient encounter procedure SUNIL GRAHAM MD [facility] Start: 01-05-2023 End: 01-05-2023 Patient encounter procedure SUNIL GRAHAM MD [facility] Start: 12-03-2022 Simin kirk DO Work Phone: [facility] Comment on above: Med Change Request Start: 11-18-2022 End: 11-18-2022 SAME DAY STAY SUNIL GRAHAM MD [facility] Start: 11-13-2022 End: 11-13-2022 Patient encounter procedure 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 PRINT DEVELOPER-PHARMACY INNOVATION ASSISTANT [facility] Start: 10-29-2022 End: 10-29-2022 ambulatory CHEKO MCCLELLAND Facility:[facility] Start: 10-14-2022 End: 10-14-2022 ambulatory GRETEL QUINTANA Facility:[facility] Start: 10-14-2022 End: 10-14-2022 Patient encounter procedure Gretel Quintana MD Work Phone: Obstetrics/Gynecolog y Comment on above: Encounter for superv ision of normal first in second trimester (Primary Dx); Need for influenza vaccination; 15 weeks gestation of Start: 09-21-2022 End: 09-21-2022 ambulatory FLORENCE HEWITT Facility:[facility] Start: 09-17-2022 End: 09-17-2022 ambulatory BRAULIO HOLLINGSWORTH Facility:[facility] Start: 08-21-2022 ambulatory Braulio Hollingsworth MD Work Phone: Obstetrics/Gynecolog y Comment on above: Luz oliveira Start: 08-19-2022 End: 08-19-2022 ambulatory BRAULIO HOLLINGSWORTH Facility:[facility] Start: 08-19-2022 End: 08-19-2022 Patient encounter procedure Braulio Hollingsworth MD Work Phone: Obstetrics/Gynecolog y Comment on above: Encounter for superv ision of normal first in first trimester (Primary Dx) with uncer tain dates in first trimester (Primary Dx) Start: 08-14-2022 End: 08-14-2022 ambulatory TANESHA HILTON Facility:[facility] Start: 08-10-2022 Telephone encounter Braulio connolly MD Work Phone: Obstetrics/Gynecolog y Comment on above: Patient Update Start: 08-09-2022 End: 08-09-2022 Emergency department patient visit No [facility] [facility] Start: 08-04-2022 End: 08-04-2022 [facility]: 08-04-2022 End: 08-04-2022 Emergency department patient visit Melania Mitchell MD Work Phone: [facility] Comment on above: Threatened miscarria ge in early (Primary Dx) Start: 07-20-2022 End: 07-20-2022 ambulatory No Primary Care Physician [facility] Work Phone: Start: 07-20-2022 End: 07-20-2022 Discharged Recurring No Primary Care Physician [facility] Start: 07-20-2022 Registered Recurring No Primary Care Physician [facility] Start: 07-09-2022 Telephone encounter Ledy gonzalez MD Work Phone: [facility] Comment on above: Missed Appointment ( #1 No Show, #1 Letter) Start: 07-08-2022 End: 07-08-2022 Patient encounter procedure No Primary Care Physician [facility] Start: 06-29-2022 End: 06-30-2022 Emergency department patient visit No Primary Care Physician [facility] Start: 05-31-2022 End: 05-31-2022 Emergency department patient visit HIWOT HUDSON Facility:[facility] Start: 12-31-2021 End: 12-31-2021 Emergency department patient visit JAYDE YEAGER Facility:[facility] Start: 01-27-2021 End: 01-27-2021 ambulatory Alex [phone] Lynsey [phone] Facility:[facility] Start: 12-25-2018 Patient encounter procedure [...] Speci men Type: BLOOD SPECIMEN Ordering Facility: [facility] Address: [address] [place] [address] Performed By: #### T SPN #### [facility] CLIA [id number] Start: 08-19-2022 Antibody screen rbc each [...] Speci men Type: BLOOD SPECIMEN Ordering Facility: [facility] Address: [address] [place] [address] Performed By: #### T SPN #### [facility] CLIA [id number] [address] [place] Start: 08-09-2022 Transvaginal [...] of wisdom tooth (body structure) 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 PRINT DEVELOPER-PHARMACY INNOVATION ASSISTANT Plan of Treatment Date Care Activity Detail Author Start: 08-19-2025 PAP TESTING PAP TESTING [facility] Start: 05-14-2024 PAP TESTING PAP TESTING [facility] Start: 08-19-2023 CHLAMYDIA SCREENING (18-24) CHLAMYDIA SCREENING (18-24) [facility] Start: 08-19-2023 GC (GONORRHEA) SCREE SAADIA (18-24) GC (GONORRHEA) SCREENING (18-24) [facility] Start: 10-14-2022 End: 10-14-2023 OBSTETRIC ULTRASOUND WHI OBSTETRIC ULTRASOUND I Anc Imaging Routine Encounter for supervision of normal first in second trimester Expected: 10/14/2022, Expires: 10/14/2023 [facility] Work Phone: Comment on above: Expected: 10/14/2022 , Expires: 10/14/2023 Start: 10-11-2022 DEPRESSION ASSESSMENT DEPRESSION ASS ESSMENT [facility] Start: 08-19-2022 End: 10-19-2022 Hepatitis B virus surface Ab [Presence] in Serum by Immunoassay [facility] Work Phone: Comment on above: Expected: 08/19/2022 , Expires: 10/19/2022 Start: 08-19-2022 End: 10-19-2022 Hepatitis C virus Ab [Presence] in Serum [facility] Work Phone: Comment on above: Expected: 08/19/2022 , Expires: 10/19/2022 Start: 08-19-2022 End: 01-09-2023 HIV 1+2 Ab [Presence] in Serum or Plasma by Immunoassay [facility] Work Phone: Comment on above: Expected: 08/19/2022 , Expires: 10/19/2022 Start: 08-19-2022 End: 08-19-2023 NUCHAL TRANSLUCENCY WHI NUCHAL TRANSLUCENCY WHI Anc Imaging Routine Encounter for supervision of normal first in first trimester Expected: 08/19/2022, Expires: 08/19/2023 [facility] Work Phone: Comment on above: Expected: 08/19/2022 , Expires: 08/19/2023 Start: 08-19-2022 End: 10-19-2022 RUBELLA IGG AB [facility] Work Phone: Comment on above: Expected: 08/19/2022 , Expires: 10/19/2022 Start: 08-19-2022 End: 10-19-2022 SYPHILIS TOTAL W/REFLEX [facility] Work Phone: Comment on above: Expected: 08/19/2022 , Expires: 10/19/2022 Start: 07-08-2022 Patient referral [facility] Work Phone: Start: 06-11-2022 Influenza vaccination INFLUENZA (#1) [facility] Start: 05-14-2022 CHLAMYDIA SCREENING (18-24) CHLAMYDIA SCREENING (18-24) [facility] Start: 05-14-2022 GC (GONORRHEA) SCREE SAADIA (18-24) GC (GONORRHEA) SCREENING (18-24) [facility] Start: 05-11-2022 Influenza vaccination Flu vaccine (# 1) [facility] Start: 05-07-2022 Urine microalbumin profile DTAP,TDAP,TD (7 - Td or Tdap) [facility] Start: 10-11-2021 DEPRESSION ASSESSMENT DEPRESSION ASS ESSMENT [facility] Start: 05-17-2021 COVID-19 VACCINE (3 - Booster for Pfizer series) COVID-19 VACCINE (3 - Booster for Pfizer series) [facility] Start: 2020 Screening for malign ant neoplasm of cervix Pap smear [facility] Start: 2018 DTaP/Tdap/Td vaccine (1 - Tdap) DTaP/Tdap/Td vaccine (1 - Tdap) [facility] Start: 2017 HEPATITIS C SCREENING HEPATITIS C SC REENING [facility] Start: 2017 Hepatitis C screening Hepatitis C sc reen [facility] Start: 2017 HIV SCREENING HIV SCREENING [facility] Start: 2015 Screening for Chlamy jarod trachomatis Chlamydia/GC screen [facility] Start: 2014 HIV screening HIV screen [facility] Start: 2013 PEDS TO ADULT TRANSI TION ANNUAL ASSESSMENT PEDS TO ADULT TRANSITION ANNUAL ASSESSMENT [facility] Start: 2011 Depression Screen Depression Screen [facility] Start: 2011 PEDS TO ADULT TRANSI TION INITIAL DISCUSSION PEDS TO ADULT TRANSITION INITIAL DISCUSSION [facility] Start: 2010 HPV vaccine (1 - 2-d ose series) HPV vaccine (1 - 2-dose series) [facility] Start: 2009 MENINGOCOCCAL B: Consider based on risk (1 of 2 - Risk Bexsero 2-dose series) MENINGOCOCCAL B: Consider based on risk (1 of 2 - Risk Bexsero 2-dose series) [facility] Start: 2000 Varicella vaccine (1 of 2 - 2-dose childhood series) Varicella vaccine (1 of 2 - 2-dose childhood series) [facility] Start: 04-09-2000 COVID-19 VACCINE (#1) COVID-19 VACCI NE (#1) [facility] Bacteria identified in Urine by Culture URINE CULTURE Microbiology Routine Encounter for supervision of normal first in first trimester 08/19/2022 2:08 PM [facility] Work Phone: Chlamydia trachomatis+Neisseria gonorrhoeae DNA [Presence] in Unspecified specimen by CHICHO with probe detection GC/CHLAMYDIA DNA DET Lab Routine Encounter for supervision of normal first in first trimester 08/19/2022 2:13 PM EST [facility] Work Phone: PAP FLUID CERVICAL SCREENING PAP FLUID CERVICAL SCREENING Lab Routine Encounter for supervision of normal first in first trimester Ordered: 08/19/2022 [facility] Work Phone: Comment on above: Ordered: 08/19/2022 Patient Education [facility] Work Phone: Patient referral [facility] Work Phone: [facility] Immunizations Immunization Date Immunization Notes Care Provider Dion rollins 08-24-2023 tetanus toxoid, redu ibis diphtheria toxoid, and acellular pertussis vaccine, adsorbed KIRSTEN MAST PRINT DEVELOPER-PHARMACY INNOVATION ASSISTANT [facility] 02-01-2023 tetanus toxoid, redu ibis diphtheria toxoid, and acellular pertussis vaccine, adsorbed; Translations: [Boostrix (Tdap)] MARTINEZ NÚÑEZ MD [facility] Comment on above: Result Comment: [facility]- [id number] 10-14-2022 influenza virus vacc ine, unspecified formulation KIRSTEN MAST PRINT DEVELOPER-PHARMACY INNOVATION ASSISTANT [facility] 10-14-2022 influenza, injectabl e, quadrivalent, contains preservative Gretel Quintana MD Work Phone: [facility] 03-22-2021 SARS-CoV-2 mRNA (tozinameran) vaccine KIRSTEN MAST PRINT DEVELOPER-PHARMACY INNOVATION ASSISTANT [facility] 03-01-2021 SARS-CoV-2 mRNA (tozinameran) vaccine KIRSTEN MAST PRINT DEVELOPER-PHARMACY INNOVATION ASSISTANT [facility] 09-20-2020 influenza virus vacc ine, unspecified formulation KIRSTEN MAST PRINT DEVELOPER-PHARMACY INNOVATION ASSISTANT [facility] 09-08-2019 influenza virus vacc ine, unspecified formulation KIRSTEN MAST PRINT DEVELOPER-PHARMACY INNOVATION ASSISTANT [facility] 03-02-2018 varicella virus vaccine JT TA MAST PRINT DEVELOPER-PHARMACY INNOVATION ASSISTANT [facility] 07-26-2017 influenza virus vacc ine, unspecified formulation [facility] 05-11-2017 meningococcal polysaccharide (groups A, C, Y and W-135) diphtheria toxoid conjugate vaccine (MCV4P) [facility] 02-24-2016 meningococcal polysaccharide (groups A, C, Y and W-135) diphtheria toxoid conjugate vaccine (MCV4P) Ledy Vaughn MD Work Phone: [facility] 07-05-2014 influenza virus vacc ine, unspecified formulation [facility] 07-05-2014 influenza, injectabl e, quadrivalent, preservative free Ledy Vaughn MD Work Phone: [facility] Work Phone: 02-20-2014 human papilloma viru s vaccine, quadrivalent Ledy Vaughn MD Work Phone: [facility] 02-20-2014 Human Papillomavirus Quadval [facility] 05-18-2013 human papilloma viru s vaccine, quadrivalent Ledy Vaughn MD Work Phone: [facility] Work Phone: 05-07-2012 human papilloma viru s vaccine, quadrivalent Ledy Vaughn MD Work Phone: [facility] 05-07-2012 Meningococcal, MCV4, unspecified conjugate formulation(groups A, C, Y and W-135) Ledy Vaughn MD Work Phone: [facility] 05-07-2012 tetanus toxoid, redu ibis diphtheria toxoid, and acellular pertussis vaccine, adsorbed Ledy Vaughn MD Work Phone: [facility] 05-07-2012 varicella virus vaccine Chayo Harris MD Work Phone: [facility] 01-09-2005 diphtheria, tetanus toxoids and acellular pertussis vaccine Ledy Vaughn MD Work Phone: [facility] 01-09-2005 measles, mumps and rubella virus vaccine Ledy Vaughn MD Work Phone: [facility] 01-09-2005 poliovirus vaccine, inactivated Ledy Vaughn MD Work Phone: [facility] 04-26-2001 pneumococcal conjuga te vaccine, 7 valent Ledy Vaughn MD Work Phone: [facility] 02-17-2001 diphtheria, tetanus toxoids and acellular pertussis vaccine Ledy Vaughn MD Work Phone: [facility] Work Phone: 02-17-2001 haemophilus influenz ae type b vaccine, HbOC conjugate Ledy Vaughn MD Work Phone: [facility] Work Phone: 02-17-2001 pneumococcal conjuga te vaccine, 7 valent Ledy Vaughn MD Work Phone: [facility] 11-03-2000 measles, mumps and rubella virus vaccine Ledy Vaughn MD Work Phone: [facility] Work Phone: 11-03-2000 measles/mumps/rubell a virus vaccine KIRSTEN CISNEROS PRINT DEVELOPER-PHARMACY INNOVATION ASSISTANT [facility] 11-03-2000 varicella virus vaccine Chayo Harris MD Work Phone: [facility] Work Phone: 05-05-2000 diphtheria, tetanus toxoids and acellular pertussis vaccine Ledy Vaughn MD Work Phone: [facility] Work Phone: 05-05-2000 haemophilus influenz ae type b vaccine, HbOC conjugate Ledy Vaughn MD Work Phone: [facility] Work Phone: 05-05-2000 hepatitis B vaccine, pediatric or pediatric/adolescent dosage Ledy Vaughn MD Work Phone: [facility] Work Phone: 05-05-2000 poliovirus vaccine, inactivated Ledy Vaughn MD Work Phone: [facility] Work Phone: 03-03-2000 diphtheria, tetanus toxoids and acellular pertussis vaccine Ledy Vaughn MD Work Phone: [facility] Work Phone: 03-03-2000 haemophilus influenz ae type b vaccine, HbOC conjugate Ledy Vaughn MD Work Phone: [facility] Work Phone: 03-03-2000 poliovirus vaccine, inactivated Ledy Vaughn MD Work Phone: [facility] Work Phone: 1999 diphtheria, tetanus toxoids and acellular pertussis vaccine Ledy Vaughn MD Work Phone: [facility] Work Phone: 1999 haemophilus influenz ae type b vaccine, HbOC conjugate Ledy Vaughn MD Work Phone: [facility] Work Phone: 1999 hepatitis B vaccine, pediatric or pediatric/adolescent dosage Ledy Vaughn MD Work Phone: [facility] Work Phone: 1999 poliovirus vaccine, inactivated Ledy Vaughn MD Work Phone: [facility] Work Phone: 1999 hepatitis B pediatri c vaccine KIRSTEN CISNEROS PRINT DEVELOPER-PHARMACY INNOVATION ASSISTANT [facility] 1999 hepatitis B vaccine, pediatric or pediatric/adolescent dosage Ledy Vaughn MD Work Phone: [facility] Work Phone: Payers Date Payer Category Payer Self-pay [id number] 2025 Unknown [id number] 2023 Unknown [id number] 2021 Unknown [id number] 2021 Unknown [id number] 2021 Unknown [id number] 1999 Unknown [id number] 2.16. 840.1.491550.3.579.2.356 1999 Unknown [id number] 2.16. 840.1.377392.3.579.2.356 1999 Unknown [id number] 2.16.8 40.1.184119.3.579.2.419 1999 Unknown [id number] 2.16. 840.1.171460.3.579.2.668 1999 Unknown [id number] 2.16.8 40.1.874423.3.579.2.627 1999 Unknown [id number] 2.16.8 40.1.576714.3.579.2.627 1999 Unknown [id number] 2.16.8 40.1.696616.3.579.2.627 1999 Unknown [id number] 2.16.8 40.1.353708.3.579.2.627 1999 Unknown [id number] 2.16.8 40.1.656548.3.579.2.627 1999 Unknown [id number] 2.16.8 40.1.690908.3.579.2.627 1999 Unknown [id number] 2.16.8 40.1.229634.3.579.2.627 1999 Unknown [id number] 2.16.8 40.1.614900.3.579.2.627 1999 Unknown [id number] 2.16.8 40.1.353669.3.579.2.627 1999 Unknown [id number] 2.16.8 40.1.928943.3.579.2.627 1999 Unknown [id number] 2.16. 840.1.297625.3.579.2.479 1999 Unknown [id number] 2.16. 840.1.636424.3.579.2.479 1999 Unknown [id number] 2.16. 840.1.628888.3.579.2.479 Unknown [id number] Unknown [facility] [id number] Unknown [facility] [id number] Unknown [facility] [id number] Unknown [id number] 2.16.8 40.1.306341.3.579.2.462 Unknown [id number] 2.16.8 40.1.326491.3.579.2.462 Unknown [id number] 2.16.8 40.1.887393.3.579.2.462 Unknown [id number] 2.16.8 40.1.420090.3.579.2.462 Unknown [id number] 2.16.8 40.1.143631.3.579.2.462 Unknown [id number] 2.16.8 40.1.166087.3.579.2.462 Unknown [id number] 2.16.8 40.1.979560.3.579.2.462 Unknown [id number] 2.16.8 40.1.859518.3.579.2.462 Unknown [id number] 2.16.8 40.1.333977.3.579.2.462 Unknown [id number] 2.16.8 40.1.027536.3.579.2.462 Unknown [id number] 2.16.8 40.1.365109.3.579.2.462 Unknown [id number] 2.16.8 40.1.003139.3.579.2.462 Unknown [id number] 2.16.8 40.1.040975.3.579.2.462 Unknown [id number] 2.16.8 40.1.755860.3.579.2.462 Unknown [id number] 2.16.8 40.1.764767.3.579.2.462 Unknown [id number] 2.16.8 40.1.408663.3.579.2.462 Unknown [id number] 2.16.8 40.1.933203.3.579.2.462 Unknown [id number] 2.16.8 40.1.628181.3.579.2.462 Unknown [id number] 2.16.8 40.1.724677.3.579.2.462 Unknown [id number] 2.16.8 40.1.727145.3.579.2.462 Unknown [id number] 2.16.8 40.1.872259.3.579.2.462 Unknown [id number] 2.16.8 40.1.474124.3.579.2.462 Unknown [id number] 2.16.8 40.1.657685.3.579.2.462 Unknown [id number] 2.16.8 40.1.793782.3.579.2.462 Unknown [id number] 2.16.8 40.1.092066.3.579.2.462 Unknown [id number] 2.16.8 40.1.962648.3.579.2.462 Unknown [id number] 2.16.8 40.1.991244.3.579.2.462 Social History Date Type Detail Facility Start: 12-31-2021 End: 07-28-2024 Tobacco smoking status NHIS Never smoked tobacco [facility] Start: 12-31-2021 End: 08-19-2022 Tobacco use and exposure Smokeless tobacco non-user [facility] Start: 12-31-2021 End: 10-14-2022 Alcohol intake Ex-drinker (finding) [facility] Start: 06-27-2013 End: 08-19-2022 Tobacco Comment dad smokes outside [facility] Start: 2000 Sex Assigned At Female C [facility] Start: 06-28-2022 End: 08-19-2022 Exposure to SARS-CoV-2 (event) Not sure [facility] Start: 2000 Sex Assigned At Not on file [facility] [employer] Work Phone: Start: 08-09-2022 End: 08-09-2022 Tobacco smoking status NHIS Unknown if ever smoked [facility] Work Phone: Start: 10-24-2020 Spouse/ Signif icant Other [facility] Work Phone: Start: 07-12-2022 [facility] Goals Date Patient Goal Desired Activity [...] UE's Reflexes: 1+ bilat biceps and triceps [facility] 04-02-2023 Functional Status Rooming in [facility] 04-01-2023 Functional Status [facility] 04-01-2023 Functional Status Independent [facility] 04-01-2023 Functional Status [facility] 03-30-2023 Functional Status Home independently [facility] 03-07-2023 Functional Status Ambulating in room [facility] Mental Status Date Assessment Result Facility [...] 02/19/2024 1:39:46 AM Ordering Provider: KIRSTEN CISNEROS [facility] 10-15-2023 Evaluation + Plan note Diagnostic Tests PendingVitamin B12 Level 10/15/23Folate Level 10/15/23 Future Scheduled TestsGlucose Level 07/20/23Lipid Profile 07/20/23 [facility] 04-02-2023 Evaluation + Plan note Extrac barbara from: Title:Clinical Document Author:LONG DICKERSON MD Date:04/02/23 Subjective Comfortable with oral Motrin Lochia small. Baby is eating well per bottle Stayed overnight due to elevated bili levels in baby Objective Looks very well. Independent in room. Abdomen: Soft, uterus firm at U- 2 Extremities: Nontender with 1+ edema VITALS FbcbvlTozuQBWvtjhXUMxH5GIV8BhcpPc(kg) 04/02 00:3136.6--054802--88/20 78.0 04/01 16:2036.5--7916---- 04/01 08:4136.1--8114---- 03/31 23:3036.6--8416---- [...] q6h, 03/30/23 19:48:00 EDT Problems (4) Anxiety ([id number]) Body mass index 30+ - obesity (284341259) (415029633) UTI (urinary tract infection) ([id number]) ASSESSMENT/PLAN: PPD #2 after . Doing very well. Home today. Extracted from: Title:Clinical Document Author:LONG DICKERSON MD Date:03/31/23 Subjective Comfortable with oral Motrin Lochia small. Baby is nursing well. . Objective Looks very well. Independent in room. CVS: RRR Lungs: CTA B Abdomen: Soft, uterus firm at U- 1 Extremities: Nontender with 1+ edema VITALS WqhkfhApiiYSUemdnRKOfX8JAU1XauzBa(kg) 03/31 08:3636.8--7816----03/30 78.0 03/31 05:4936--8216---- 03/31 02:00 RA 03/30 20:15----29330--SV 03/30 20:00----8018--RA 24 Hr Tmax: 36.8 at [...] q6h, 03/30/23 19:48:00 EDT Problems (4) Anxiety ([id number]) Body mass index 30+ - obesity (870959842) (717564741) UTI (urinary tract infection) ([id number]) ASSESSMENT/PLAN: PPD #1 after Outlet vacuum delivery [...] SYSTEMS: All negative ACTIVE PROBLEMS: (4) Anxiety ([id number]) Body mass index 30+ - obesity (785962902) (912289304) UTI (urinary tract infection) ([id number]) ALLERGIES: (1) CeleXA FAMILY HISTORY: No inheritable diseases. SOCIAL HISTORY: . Denies tobacco use Denies alcohol use. No illicit drug use. PHYSICAL EXAM: VITALS: KafgyoFjlqXEXwkfzKZIlY2QDC7FvmrAl(kg) 03/30 10:5735.6--7518----03/30 78.0 03/30 10:0535.9 03/30 09:0536.1 [...] Date:04/20/2023 02:00:00 PM Scheduled Provider:SUNIL GRAHAM MD Location[facility] Appointment Type[facility] 06-22-2023 Note day #2 progress [...] MARTINEZ NÚÑEZ MD on 04/01/2023 09:01 AM [facility]23 Hospital Discharge instructions Patient Education [...] work with your health care provider or consultant education. If you are not : ?Avoid touching [...] about methods of control (contraception). Medicines Take euwu-qtj-vmesgur and prescription medicines only as told by [...] 07/24/2008 Document Revised: 09/30/2018 Document Reviewed: 07/11/2018 [employer] Patient Education 2020 [employer]. 03/31/2023 12:34:52 7b- Depression and Blues (07/2020) [...] psychosis. Often, a screening tool called the [place] Depression Scale is used to diagnose depression [...] music. Avoid alcohol. Ask for help with quality control engineering technician, cooking, grocery shopping, or running errands as needed. Do nottry to do everything. Talk to people close to you about how you are feeling. Get support from your partner, family members, and friends. Try to stay positive in how you think. Think about the things you are grateful for. Do not spend a lot of time alone. Only take phjw-gpi-wuyulaa or prescription medicine as directed by your [...] not doing well or get worse. Resource: [facility] Patient Information 2015 [facility]. This information is not intended to replace advicegiven to you by your health care provider. Make sure you discuss any questions you have with your health care provider. Follow Up Care 03/30/2023 06:39:24 With:LONG DICKERSON Address: [address] [place] [address] [place] [address] [phone] Business (1) When: Unknown [facility] 06-21-2023 Note Date of Service 03/31/23 Chief Complaint Subjective 22 [facility] [facility] Doing well. pain [...] 1 herlinda, Perineum, AsDirected benzocaine topical 20% [place] 1 spray(s), Perineum, q1h bisacodyl 10 mg [...] SUNIL GRAHAM MD on 03/31/2023 11:37 AM [facility]06-21-2023 Anesthesiology Consult note Patient: LUZ OLIVEIRA Age: 22 years Sex: Female : 2000 Associated Diagnoses: None Author: JENNIFER MERA PRINT DEVELOPER-GROUND CREW LINESMAN Assessment Postanesthesia assessment Vitals: Vital signs from [...] mmHg Diastolic Blood Pressure Non-Invasive 94 mmHg TN 03/30/2023 18:56 EDT Heart Rate Monitored 98 [...] by JENNIFER MERA on 03/31/2023 06:15 AM [facility]-20-2023 Note Patient seen at 1730 [...] LONG DICKERSON MD on 03/30/2023 05:30 PM [facility] Note Patient seen at 1730 [...] LONG DICKERSON MD on 03/30/2023 05:30 PM [facility] Note Patient seen at 1730 [...] LONG DICKERSON MD on 03/30/2023 05:30 PM [facility]23 Note CHIEF COMPLAINT: Membranes ruptured [...] SYSTEMS: All negative ACTIVE PROBLEMS: (4) Anxiety ([id number]) Body mass index 30+ - obesity (590147601) (417873666) UTI (urinary tract infection) ([id number]) ALLERGIES: (1) CeleXA FAMILY HISTORY: No inheritable diseases. SOCIAL HISTORY: . Denies tobacco use Denies alcohol use. No illicit drug use. PHYSICAL EXAM: VITALS: YxwizpQfnbQWZpomdSILzT2DPR4IvgaEh(kg) 03/30 10:5735.6--7518----03/30 78.0 03/30 10:0535.9 03/30 09:0536.1 [...] LONG DICKERSON MD on 04/02/2023 11:08 AM [facility]23 Anesthesiology Consult note Patient: LUZ OLIVEIRA Age: 22 years Sex: Female : 2000 Associated Diagnoses: None Author: JENNIFER MERA PRINT DEVELOPER-GROUND CREW LINESMAN Preoperative Information laboring Anesthesia history Patient's history: [...] Problem list: Medical Anxiety / SNOMED CT [id number] / Confirmed Body mass index 30+ - obesity / SNOMED CT 102112146 / Confirmed / SNOMED CT 920312324 / Confirmed UTI (urinary tract infection) / SNOMED CT [id number] / Confirmed, Active Problems (4) Anxiety Body mass index 30+ - obesity UTI (urinary tract infection) Histories Past Medical History: Active Anxiety ([id number]) UTI (urinary tract infection) ([id number]) Family History: Cancer Grandparent Comments: 10/22/2022 14:27 AUGIE Navarro Poonam Sanchez FIBER OPTICS ENGINEER maternal, brain Cardiac pacemaker Mother Diabetes mellitus Mother Asthma Grandparent Breast cancer Grandparent Heart disease Mother HTN - Hypertension Father COPD Grandparent Diabetes Grandparent Procedure history: Wiseman tooth ([id number]). Social History Social & Psychosocial Habits Alcohol [...] Signs(last 24 hrs) Last Charted Heart Rate Rybljvucn19 bpm (MAR 30 10:57) Resp Rate 18 br/min (MAR 30 10:57) RLU036 mmHg (MAR 30 10:57) DBPL 59mmHg (MAR 30 10:57) BMI32.47 (MAR 30 07:49) Measurements from flowsheet : Measurements 03/30/2023 7:49 EDT Height 155.0 cm Admission Weight 78 kg [place] Body Weight 47.85 kg BSA Admission 1.77 [...] Height 155.0 cm Admission Weight 78 kg [place] Body Weight 47.85 kg BSA Admission 1.77 [...] Adoption No Surrogate No Discharge Physician [facility] Participant No Safe Sleep Environment for Baby [...] Teaching Evaluation Refused information Preferred Written Language Honduran Preferred Spoken Language Honduran Chief Complaint SROM Mode of Arrival Ambulatory Information Given by Patient Patient's Current Physicians Dr [facility] Emergency Contact Number Luis Daniel Oliveira [phone] Belongings At Bedside Cell phone, Roll Coverer Personal Home Medications Received No home medications [...] FHR Interpretation Category: Category One 03/30/2023 7:14 [facility] History and Physical History and Physical . Assessment and Plan [place] Society of Anesthesiologists (ASA) physical status classification: Class II. Anesthetic Preoperative Plan Anesthetic technique: Epidural. Informed consent: signed by patient. Digitally Signed by JENNIFER MERA on 03/30/2023 01:37 PM [facility]06-20-2023 Note Date of Service 03/30/23 Chief Complaint SROM History of Present Illness 22 yo G1@39.2 presents with large gush of fluid around 0600 and regular contractions. c/bobesity and recent growth US AC 7%le overall 15%le. Noted blood tinged fluid. Growth at 37 weeks for obesity showed borderline low fluid 5 cm, growth in 15%le. 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 history: Menarche: Menses: Menopause: n/a HRT: n/a [...] of breast bx: no Colonoscopy: DXA: Family 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 history: Breast/colon/ovarian/uterine cancer: MGM w breast ca [...] infection) Historical No qualifying data Procedure/Surgical History Wiseman tooth Medications Home Medications (5) Active AD [...] SUNIL GRAHAM MD on 03/30/2023 07:30 AM [facility]05-28-2023 Hospital Discharge instructions Patient Education 03/07/2023 20:26:05 7 - Labor and Delivery Outpatient Instructions (CUSTOM) DEPOSIT LABOR AND DELIVERY OUTPATIENT HOME-GOING INSTRUCTIONS _X_ [...] crackers, bananas, Jell-O, cooked carrots, applesauce. ___ [place] diet. Avoid caffeine, chocolate, alcohol, spiced/greasy foods. [...] the nearest Emergency Room for assistance. Form [id number] D: 09/18 Document Released: 09/27/2006 Document Revised: 09/15/2012 Document Reviewed: 09/27/2006 [facility] Patient Information 2012 [employer]. Follow Up Care 03/07/2023 19:56:20 With:WILTON AN, MARTINEZ Bautista Address: [address] [place] [address] [place] [address] [phone] When:03/09/2023 [facility] 05-27-2023 Hospital Discharge instructions Patient Education 03/06/2023 18:27:44 7 - Labor and Delivery Outpatient Instructions (CUSTOM) DEPOSIT LABOR AND DELIVERY OUTPATIENT HOME-GOING INSTRUCTIONS _X_ [...] crackers, bananas, Jell-O, cooked carrots, applesauce. ___ [place] diet. Avoid caffeine, chocolate, alcohol, spiced/greasy foods. [...] the nearest Emergency Room for assistance. Form [id number] D: 09/18 Document Released: 09/27/2006 Document Revised: 09/15/2012 Document Reviewed: 09/27/2006 ExitCare Patient Information 2012 [employer]. [facility] 04-18-2023 Hospital Discharge instructions Patient Education 01/26/2023 03:27:22 7 - Labor and Delivery Outpatient Instructions (CUSTOM) DEPOSIT LABOR AND DELIVERY OUTPATIENT HOME-GOING INSTRUCTIONS _X_ [...] crackers, bananas, Jell-O, cooked carrots, applesauce. ___ [place] diet. Avoid caffeine, chocolate, alcohol, spiced/greasy foods. [...] the nearest Emergency Room for assistance. Form [id number] D: 09/18 Document Released: 09/27/2006 Document Revised: 09/15/2012 Document Reviewed: 09/27/2006 ExitCare Patient Information 2012 [employer]. Follow Up Care 01/26/2023 00:53:10 With:Follow up with primary care provider Address:Unknown When: Unknown [facility] 02-25-2023 Miscellaneous Notes* Telephone Encounter - Alex Garcia DO - 12/05/2022 5:08 PM EST Not a CFM patient [facility] Hospital Discharge instructions Patient Education 11/18/2022 [...] crackers, bananas, Jell-O, cooked carrots, applesauce. ___ [place] diet. Avoid caffeine, chocolate, alcohol, spiced/greasy foods. [...] the nearest Emergency Room for assistance. Form [id number] D: 09/18 Document Released: 09/27/2006 Document Revised: 09/15/2012 Document Reviewed: 09/27/2006 ExitCare Patient Information 2012 [employer]. Follow Up Care 11/18/2022 11:50:05 With:SUNIL GRAHAM Address: [address] [place] [address] [place] [address]- [phone] Business (1) When: Unknown [facility] 01-19-2023 NoteHNO ID: [id number] Author: Tad Shaw DO Service: Obstetrics Author [...] with plan. Tad Shaw DO 4:21 AM 10/29/2022[facility]01-19-2023 NoteHNO ID: [id number] Author: Tad Shaw DO Service: Obstetrics Author [...] intractable nausea/vomiting. She was sent her from [facility] Main ED. In the ED, patient [...] Diagnosis Date Cognitive disorder IEP per the [facility] Kidney stone [...] Negative for Respiratory Syncytial Virus (RSV) by [facility] HospitalComment on above:Performed By: #### [id number] ####[facility] LABORATORYCLIA [id number] [place] [address] [place] [id number] Miscellaneous Notes* Quick Notes - Gretel Quintana [...] vaccine). Gretel Quintana MD documented in [facility]23 Nurse Note* Aimee Desir Ma - 10/14/2022 11:01 AM EST Movement? Flutters Vaginal Bleeding: NO Vaginal fluid leakage of fluid: NO Contractions: no contractions documented in this encounterAult[facility]12-08-2022 NoteHNO ID: [id number] Author: Braulio Hollingsworth MD Service: ? Author Type: Physician Type: Progress Notes Filed: 09/17/2022 2:28 PM Note Text: Please refer to quick note and flow sheet. [facility]22 NoteHNO ID: [id number] Author: Braulio Hollingsworth MD Service: ? 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 loratadine (CLARITIN) 10 mg tablet Take 1 tablet by mouth once daily. fluticasone (FLONASE) 50 mcg/actuation nasal spray Use 1 [place] in each nostril once daily. No current [...] 4 weeks or sooner prn. Braulio Hollingsworth [facility]11-09-2022 NoteHNO ID: [id number] Author: Braulio Hollingsworth MD Service: ? Author Type: Physician Type: Progress Notes Filed: 08/19/2022 5:28 PM Note Text: OB point of care ultrasound was performed. See imaging tab for details. Braulio Hollingsworth [facility]11-09-2022 History of Present illness Narrative* Braulio [...] No Multivitamin with Folic acid: Yes Occupation: [employer] student Faith or heritage: Yes Would refuse blood transfusion if medically necessary: no BMI 35.62 kg/(m^2) Patient BMI over 30? 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 loratadine (CLARITIN) 10 mg tablet Take 1 tablet by mouth once daily. fluticasone (FLONASE) 50 mcg/actuation nasal spray Use 1 [place] in each nostril once daily. No current [...] prn. Braulio Hollingsworth MD documented in this encounterA[facility]11-09-2022 Instructions* Patient Instructions* Braulio Hollingsworth MD - 08/19/2022 1:48 PM EST Please select the following link to access the [facility] Your Guide to a Healthy . [email or web address] documented in this encounterAultman Hospital11-09-2022 History of Present illness Narrative* Braulio Hollingsworth MD - 08/19/2022 1:41 PM EST OB point of care ultrasound was performed. See imaging tab for details. Braulio Hollingsworth MD documented in this encounterA[facility]man Hospital11-09-2022 Nurse Note* Jennifer Stevenson MA - 08/19/2022 1:07 PM EST Movement? Too early Vaginal Bleeding: YES/MD NOTIFIED-Has had for 2 weeks Vaginal fluid leakage of fluid: NO Contractions: no contractions documented in this encounterAultman Hospital11-04-2022 NoteHNO ID: [id number] Author: Zuhair Condon DO Service: Obstetrics Author [...] 14, 2022 TIME: 9:44 PM PAGER/CONTACT #: [phone][facility]2022 NoteHNO ID: [id number] Author: Zuhair Condon DO Service: Obstetrics Author [...] Patient states that she originally went to [place] ED on 08/09/22. 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 No [...] at time of discharge (more content not included)...[facility] Miscellaneous Notes* Telephone Encounter - Nisa Murphy - 08/10/2022 9:31 AM EDT Patient was in ED for bleeding. Not currently bleeding has new OB appointment 08/19. Please advise if you would like to see her sooner. documented in this encounterA[facility]10-25-2022 Hospital Discharge instructions* Discharge Instructions* Melania Mitchell MD - 08/04/2022 1:22 PM EDT Please call your OB today to schedule a follow up visit in the next 2 days. * Attachments The following attachments cannot be sent through Care Everywhere. * Miscarriage: Threatened (Honduran) documented in this encounterSUMMA Work Phone: [phone]) 859-965109-29-2022 Miscellaneous Notes* Telephone Encounter - Verónica Alegre [...] 09, 2022 12:24 PM documented in this encounterAultman HospitalEvaluation + Plan note Future Appointments Appointment Date:11/16/2022 02:00:00 PM Scheduled Provider:SUNIL GRAHAM MD Location:[facility] Appointment Type: OV OB Routine Follow Up [facility] Evaluation + Plan note Future Appointments Appointment Date:12/14/2022 02:15:00 PM Scheduled Provider:SUNIL GRAHAM MD Location:[facility] Appointment Type: OV OB Routine Follow Up Appointment Date:12/23/2022 08:30:00 AM Scheduled Provider: Location:[facility] Appointment Type:US OB > 14 wks Future Scheduled Tests Radiology* US OB Limited/Transvaginal 01/11/23 * US OB > 14 weeks 12/23/22 [facility] Evaluation + Plan note Future [...] Antibody 12/14/22 Radiology* US OB Limited/Transvaginal 01/11/23 [facility] Evaluation + Plan note Future Appointments Appointment Date:01/25/2023 01:00:00 PM Scheduled Provider:SUNIL GRAHAM MD Location:[facility] Appointment Type: OV OB Routine Follow Up [...] Antibody 12/14/22 Radiology* US OB Limited/Transvaginal 01/11/23 [facility] Evaluation + Plan note Future Appointments Appointment Date:02/01/2023 01:15:00 PM Scheduled Provider:SUNIL GRAHAM MD Location:[facility] Appointment Type:[facility] OB Routine Follow Up Appointment Date:03/15/2023 02:00:00 PM Scheduled Provider: Location:[facility] Appointment Type:US OB > 14 wks [...] * US OB > 14 weeks 03/15/23 [facility] Evaluation + Plan note Future Appointments Appointment Date:03/09/2023 01:45:00 PM Scheduled Provider:LONG DICKERSON MD Location:[facility] Appointment Type:[facility] OB Routine Follow Up Appointment Date:03/15/2023 02:00:00 PM Scheduled Provider: Location:[facility] Appointment Type:US OB > 14 wks [...] * US OB > 14 weeks 03/15/23 [facility] Evaluation + Plan note Future Appointments Appointment Date:03/15/2023 02:00:00 PM Scheduled Provider: Location:[facility] Appointment Type:US OB > 14 wks Appointment Date:03/16/2023 02:30:00 PM Scheduled Provider:LONG DICKERSON MD Location:[facility] Appointment Type:[facility] OB Routine Follow Up Diagnostic Tests [...] * US OB > 14 weeks 03/15/23 [facility] Evaluation + Plan note Future Appointments Appointment Date:03/15/2023 02:00:00 PM Scheduled Provider: Location:[facility] Appointment Type:US OB > 14 wks Appointment Date:03/16/2023 02:30:00 PM Scheduled Provider:LONG DICKERSON MD Location:[facility] Appointment Type:[facility] OB Routine Follow Up Future Scheduled [...] * US OB > 14 weeks 03/15/23 [facility] Evaluation + Plan note Future Appointments Appointment Date:03/16/2023 02:30:00 PM Scheduled Provider:LONG DICKERSON MD Location:[facility] Appointment Type: OV OB Routine Follow Up [...] Urine 01/25/23 Radiology* US OB Limited/Transvaginal 01/11/23 [facility] Evaluation + Plan note Future Appointments Appointment Date:07/28/2024 08:30:00 AM Scheduled Provider:KIRSTEN CISNEROS Location:[facility] Appointment Type:PC Wellness Annual Future Scheduled Tests Laboratory* Glucose Level 07/20/23 * Lipid Profile 07/20/23 [facility] Evaluation + Plan note Future Appointments Appointment Date:08/25/2024 07:30:00 AM Scheduled Provider:KIRSTEN CISNEROS Location:[facility] Appointment Type:PC OV Future Scheduled Tests Radiology* CT Head or Brain w/o Contrast 07/28/24 * CT Spine Cervical w/o Contrast 07/28/24 [facility] Evzngation note* Diagnosis Threatened miscarriage in early - Primary Threatened , unspecified as to episode of care documented in this encounter [facility] Work Phone: Evaluation note* Diagnosis Onset Date Resolution Status Acute lumbar myofascial strain acute Blunt abdominal trauma acute Cervical strain, acute acute Chest wall contusion acute Concussion without loss of consciousness acute Lumbar radiculopathy, acute acute [facility] Work Phone: Evaluation note* Diagnosis Encounter for supervision of normal first in first trimester- Primary Supervision of normal first documented in this encounter [facility] note* Diagnosis with uncertain dates in first trimester- Primary documented in this encounter [facility] note* Diagnosis Encounter for supervision of normal first in second trimester- Primary Supervision of normal first Need for influenza vaccination Need for prophylactic vaccination and inoculation against influenza 15 weeks gestation of state, incidental [facility] Narrative No data available for this section [facility] Hospital Discharge instructions Additional Instructions Follow-up with your SIGNAL FITTER. Return if you have worsening symptoms or worsening abdominal pain/fever.[facility] Work Phone: Hospital Discharge instructions No data available for this section [facility] Progress note No data available for this section [facility] Reason for referral (narrative)* Diagnostic Procedure Only (Routine) - Pending Review Specialty Diagnoses / Procedures Referred By Contac t Referred To Contact [facility] Diagnoses Encounter for supervision of normal first in first trimester Procedures NUCHAL TRANSLUCENCY WHI US NUCHAL TRANSLUCENCY 1ST GESTATION Braulio Hollingsworth MD [address] [facility] [address] [place] [address] [facility] [address] [place] [address] Referral ID Status Reason Start Date Expiration Date Visits Requested Visits Authorized [id number] Pending Review Auto-Generat ed Referral 08/19/2022 08/19/2023 1 [facility] Diagnostic Procedure Only (Routine) - Authorized Specialty Diagnoses / Procedures Referred By Contac t Referred To Contact [facility] Diagnoses Encounter for supervision of normal first in second trimester Procedures OBSTETRIC ULTRASOUND WHI US PREG UTERUS AFTER 1ST TRIMEST GESTATION Gretel Quintana MD [address] [address] [facility] [address] [place] [address] Referral ID Status Reason Start Date Expiration Date Visits Requested Visits Authorized [id number] Authorized Auto-Generat ed Referral 10/14/2022 10/14/2023 1 1 [facility] Summary Purpose Family History No [...] Will No August 09 2:12pm Power of Pediatric Registered Nurse No August 09, 2022 2:12pm Advance Directive Response Recorded Date/ Time Advance Directives No June 7:50am Living Will No August 09 1:12pm Power of Pediatric Registered Nurse No August 09, 2022 1:12pm Chief Complaint [...] section and content) DATE CREATED AUTHOR 09/19/2018 [facility] DATE CREATED AUTHOR AUTHOR'S ORGANIZ ATION 12/26/2018 [facility] DATE CREATED AUTHOR AUTHOR'S ORGANIZ ATION 04/29/2019 [facility] DATE CREATED AUTHOR AUTHOR'S ORGANIZ ATION 12/25/2019 [facility] DATE CREATED AUTHOR AUTHOR'S ORGANIZ ATION 03/17/2021 [facility] DATE CREATED AUTHOR AUTHOR'S ORGANIZ ATION 08/29/2021 [facility] DATE CREATED AUTHOR AUTHOR'S ORGANIZ ATION 08/05/2022 [facility] DATE CREATED AUTHOR AUTHOR'S ORGANIZ ATION 11/13/2022 [facility] DATE CREATED AUTHOR AUTHOR'S ORGANIZ ATION 11/14/2022 [facility] DATE CREATED AUTHOR AUTHOR'S ORGANIZ ATION 02/20/2024 [facility] DATE CREATED AUTHOR AUTHOR'S ORGANIZ ATION 08/20/2024 [facility] DATE CREATED AUTHOR AUTHOR'S ORGANIZ ATION 06/27/2025 [facility] DATE CREATED AUTHOR AUTHOR'S ORGANIZ ATION 08/23/2025 [facility] Source Comments (unrecognize d section and content) In the event this informatio n is protected by the Federal Confidentiality of Alcohol and Drug Abuse Patient Records regulations: The Federal rules restrict any use of the information to criminally investigate or prosecute any alcohol or drug abuse patient.[facility] HospitalIn the event this information is protected by the Federal Confidentiality of Alcohol and Drug Abuse Patient Records regulations: The Federal rules restrict any use of the information to criminally investigate or prosecute any alcohol or drug abuse patient.[facility] HospitalIn the event this information is protected by the Federal Confidentiality of Alcohol and Drug Abuse Patient Records regulations: The Federal rules restrict any use of the information to criminally investigate or prosecute any alcohol or drug abuse patient.[facility] HospitalIn the event this information is protected by the Federal Confidentiality of Alcohol and Drug Abuse Patient Records regulations: The Federal rules restrict any use of the information to criminally investigate or prosecute any alcohol or drug abuse patient.[facility] HospitalIn the event this information is protected by the Federal Confidentiality of Alcohol and Drug Abuse Patient Records regulations: The Federal rules restrict any use of the information to criminally investigate or prosecute any alcohol or drug abuse patient.[facility] HospitalIn the event this information is protected by the Federal Confidentiality of Alcohol and Drug Abuse Patient Records regulations: The Federal rules restrict any use of the information to criminally investigate or prosecute any alcohol or drug abuse patient.[facility] HospitalIn the event this information is protected by the Federal Confidentiality of Alcohol and Drug Abuse Patient Records regulations: The Federal rules restrict any use of the information to criminally investigate or prosecute any alcohol or drug abuse patient.[facility] Reason for Visit (unrecogniz ed section [...] Member Role: Primary Care Physician Address: Address: [address] [place] [phone] [place] Care Team Related Persons Name: RASHMI MTZ Address: Home [address] [place] [phone] [place] Name: MARGARITO MTZ Address: Home [address] [place] [phone] [place] Name: MARGARITO MTZ Address: Home [address] [place], [place] [phone] [place] Name: MARGARITO MTZ Address: [address] [place], [place] [phone] [place] Name: MARGARITO MTZ Address: Home [address] [place] [phone] [place] Name: MARGARITO MTZ Address: Home [address] [place] [phone] [place] Name: MARGARITO MTZ Address: Home [address] [place] [phone] [place] Name: MARGARITO MTZ Address: Home [address] [place] [phone] [place] Name: MARGARITO MTZ Address: Home [address] [place] [phone] [place] Care Team Personnel Name: MAXWELL GOMEZ MD Member Role: Primary Care Physician Address: Address: [address] [place], [place] [id number] Care Team Related Persons Name: RASHMI MTZ Address: Home [address] [place] [phone] [place] Name: MARGARITO TMZ Address: Home [address] [place], [place] [phone] [place] Name: MARGARITO MTZ Address: Home [address] [place], [place] [phone] [place] Name: MARGARITO MTZ Address: Home [address] [place] [phone] [place] Name: MARGARITO MTZ Address: Home [address] [place] [phone] [place] Name: MARGARITO MTZ Address: Home [address] [place] [phone] [place] Name: MARGARITO MTZ Address: Home [address] [place], [place] [phone] [place] Name: MARGARITO MTZ Address: Home [address] [place] [phone] [place] Name: MARGARITO MTZ Address: Home [address] [place] [phone] Patient Care team informatio n (unrecognized section and content) Care Team Personnel Name: MAXWELL GOMEZ MD Member Role: Primary Care Physician Address: Address: [address] [place] [phone] [place] Care Team Related Persons Name: RASHMI MTZ Address: Home [address] [phone] [place] Name: MARGARITO MTZ Address: Home [address] [place], [place] [phone] [place] Name: MARGARITO MTZ Address: Home [address] [place] [phone] [place] Name: MARGARITO MTZ Address: Home [address] [place] [phone] [place] Name: MARGARITO MTZ Address: Home [address] [place] [phone] [place] Name: BIBI, MARGARITO Address: Home [address] [place], [place] [phone] [place] Name: MARGARITO MTZ Address: [address] [place], [place] [phone] [place] Name: MARGARITO MTZ Address: [address] [place], [place] [phone] [place] Name: MARGARITO MTZ Address: Home [address] [place], [place] [phone] [place] Care Team Personnel Name: MAXWELL GOMEZ MD Member Role: Primary Care Physician Address: Address: [address] [place] [phone] [place] Care Team Related Persons Name: RASHMI MTZ Address: Home [address] [phone] [place] Name: MARGARITO MTZ Address: [address] [place], [place] [phone] [place] Name: MARGARITO MTZ Address: [address] [place], [place] [phone] [place] Name: MARGARITO MTZ Address: [address] [place], [place] [phone] [place] Name: MARGARITO MTZ Address: [address] [place], [place] [phone] [place] Name: MARGARITO MTZ Address: [address] [place], [place] [phone] [place] Name: MARGARITO MTZ Address: [address] [place], [place] [phone] [place] Name: MARGARITO MTZ Address: [address] [place], [place] [phone] [place] Name: MARGARITO MTZ Address: [address] [place], [place] [phone] [place] Care Team Personnel Name: SUNIL GRAHAM MD Position: P4 SIGNAL FITTER Provider Member Role: Primary Care Physician Address: Address: [address] [place] [address]'s [facility] [place], [place] [address] Care Team Related Persons Name: RASHMI MTZ Address: Home [address] [phone] [place] Name: MARGARITO MTZ Address: [address] [place], [place] [phone] [place] Name: MARGARITO MTZ Address: [address] [place], [place] [phone] [place] Name: MARGARITO MTZ Address: [address] [place], [place] [phone] [place] Name: ELVIA MTZRI Address: [address] [place], [place] [phone] [place] Name: ELVIA MTZRI Address: [address] [place], [place] [phone] [place] Name: ELVIA MTZRI Address: [address] [place], [place] [phone] [place] Name: ELVIA MTZRI Address: [address] [place], [place] [phone] [place] Name: ELVIA MTZRI Address: [address] [place], [place] [phone] [place] Care Team Personnel Name: SUNIL GRAHAM MD Position: P4 SIGNAL FITTER Provider Member Role: Primary Care Physician Address: Address: [address] [place] [id number] Care Team Related Persons Name: RASHMI MTZ Address: Home [address] [phone] [place] Name: MARGARITO MTZ Address: [address] [place], [place] [phone] [place] Name: ELVIA MTZRI Address: [address] [place], [place] [phone] [place] Name: ELVIA MTZRI Address: [address] [place], [place] [phone] [place] Name: ELVIA MTZRI Address: [address] [place], [place] [phone] [place] Name: MARGARITO MTZ Address: [address] [place], [place] [phone] [place] Name: MARGARITO MTZ Address: [address] [place], [place] [phone] [place] Name: ELVIA MTZRI Address: [address] [place], [place] [phone] [place] Name: ELVIA MTZRI Address: [address] [place], [place] [phone] [place] Care Team Personnel Name: MARTINEZ NÚÑEZ MD Position: P4 SIGNAL FITTER Provider Member Role: Primary Care Physician Address: Address: [address] [place] [id number] Care Team Related Persons Name: RASHMI MTZ Address: Home [address] [phone] [place] Name: MARGARITO MTZ Address: [address] [place], [place] [phone] [place] Name: MARGARITO MTZ Address: [address] [place], [place] [phone] [place] Name: MARGARITO MTZ Address: [address] [place], [place] [phone] [place] Name: MARGARITO MTZ Address: [address] [place], [place] [phone] [place] Name: MARGARITO MTZ Address: [address] [place], [place] [phone] [place] Name: MARGARITO MTZ Address: [address] [place], [place] [phone] [place] Name: MARGARITO MTZ Address: Home [address] [place] [phone] [place] Name: MARGARITO MTZ Address: [address] [place], [place] [phone] Care Team Personnel Name: MARTINEZ NÚÑEZ MD Position: P4 SIGNAL FITTER Provider Member Role: Primary Care Physician Address: Address: [address] [place] [phone] Care Team Related Persons Name: RASHMI MTZ Address: Home [address] [phone] [place] Name: MARGARITO MTZ Address: [address] [place], [place] [phone] [place] Name: MARGARITO MTZ Address: [address] [place], [place] [phone] [place] Name: MARGARITO MTZ Address: [address] [place], [place] [phone] [place] Name: MARGARITO MTZ Address: [address] [place], [place] [phone] [place] Name: MARGARITO MTZ Address: [address] [place], [place] [phone] [place] Name: MARGARITO MTZ Address: [address] [place], [place] [phone] [place] Name: MARGARITO MTZ Address: [address] [place], [place] [phone] [place] Name: MARGARITO MTZ Address: [address] [place], [place] [phone] [place] Care Team Personnel Name: MARTINEZ NÚÑEZ MD Position: P4 SIGNAL FITTER Provider Member Role: Primary Care Physician Address: Address: [address] [place] [id number] Care Team Related Persons Name: RASHMI MTZ Address: Home [address] [phone] [place] Name: MARGARITO MTZ Address: [address] [place], [place] [phone] [place] Name: MARGARITO MTZ Address: [address] [place], [place] [phone] [place] Name: MARGARITO MTZ Address: [address] [place], [place] [phone] [place] Name: MARGARITO MTZ Address: [address] [place], [place] [phone] [place] Name: MARGARITO MTZ Address: [address] [place], [place] [phone] [place] Name: MARGARITO MTZ Address: [address] [place], [place] [phone] [place] Name: MARGARITO MTZ Address: [address] [place], [place] [phone] [place] Name: MARGARITO MTZ Address: [address] [place], [place] [phone] [place] Care Team Personnel Name: MARTINEZ NÚÑEZ MD Position: P4 SIGNAL FITTER Provider Member Role: Primary Care Physician Address: Address: [address] [place] [phone] Care Team Related Persons Name: RASHMI MTZ Address: Home [address] [phone] [place] Name: MARGARITO MTZ Address: [address] [place], [place] [phone] [place] Name: MARGARITO MTZ Address: [address] [place], [place] [phone] [place] Name: MARGARITO MTZ Address: [address] [place], [place] [phone] [place] Name: MARGARITO MTZ Address: [address] [place], [place] [phone] [place] Name: MARGARITO MTZ Address: [address] [place], [place] [phone] [place] Name: MARGARITO MTZ Address: [address] [place], [place] [phone] [place] Name: MARGARITO MTZ Address: [address] [place], [place] [phone] [place] Name: MARGARITO MTZ Address: [address] [place], [place] [phone] [place] Care Team Personnel Name: MARTINEZ NÚÑEZ MD Position: P4 SIGNAL FITTER Provider Member Role: Primary Care Physician Address: Address: [address] [place] [phone] [place] [address] Care Team Related Persons Name: RASHMI MTZ Address: Home [address] [phone] [place] Name: MARGARITO MTZ Address: [address] [place], [place] [phone] [place] Name: MARGARITO MTZ Address: [address] [place], [place] [phone] [place] Name: MARGARITO MTZ Address: [address] [place], [place] [phone] [place] Name: MARGARITO MTZ Address: [address] [place], [place] [phone] [place] Name: MARGARITO MTZ Address: [address] [place], [place] [phone] [place] Name: MARGARITO MTZ Address: [address] [place], [place] [phone] [place] Name: MARGARITO MTZ Address: [address] [place], [place] [phone] [place] Name: AMRGARITO MTZ Address: [address] [place], [place] [phone] [place] Care Team Personnel Name: MARTINEZ NÚÑEZ MD Position: P4 SIGNAL FITTER Provider Member Role: Primary Care Physician Address: Address: [address] [place] [id number] Care Team Related Persons Name: AMANDA OLIVEIRA Address: Home [address] [place] [phone] [place] Address: Temporary [address] [place], [place] [phone] Name: RASHMI MTZ Address: Home [address] [phone] [place] Name: MARGARITO MTZ Address: [address] [place], [place] [phone] [place] Name: MARGARITO MTZ Address: [address] [place], [place] [phone] [place] Name: MARGARITO MTZ Address: [address] [place], [place] [phone] [place] Name: MARGARITO MTZ Address: [address] [place], [place] [phone] [place] Name: MARGARITO MTZ Address: [address] [place], [place] [phone] [place] Name: MARGARITO MTZ Address: [address] [place], [place] [phone] [place] Name: MARGARITO MTZ Address: [address] [place], [place] [phone] [place] Name: MARGARITO MTZ Address: [address] [place], [place] [phone] [place] Care Team Personnel Name: MARTINEZ NÚÑEZ MD Position: P4 SIGNAL FITTER Provider Member Role: Primary Care Physician Address: Address: [address] [place] [address] [place], [place] [address] Care Team Related Persons Name: LUIS DANIEL OLIVEIRA Address: Home [address] [place], [place] [phone] Address: Temporary [address] [place], [place] [phone] Care Team Personnel Name: KIRSTEN CISNEROSPHARMACY INNOVATION ASSISTANT Position: P4 Advanced Area Operations Manager Member Role: Primary Care Physician Address: Address: [address] [place] [address] Care Team Related Persons Name: LUIS DANIEL OLIVEIRA Address: Home [address] [place], [place] [phone] Address: Temporary [address] [place], [place] [phone] Care Team Personnel Name: KIRSTEN CISNEROS APRN-PHARMACY INNOVATION ASSISTANT Position: P4 Advanced Area Operations Manager Member Role: Primary Care Physician Address: Address: [address] [place] [address] Care Team Related Persons Name: LUIS DANIEL OLIVEIRA Address: Home [address] [place], [place] [phone] Address: Temporary [address] [place], [place] [phone] FOR RECORDS PERTAINING TO PATIENTS WHO ARE [...] BE BASED ON THE PRIMARY CLINICAL RECORDS. [employer] provides no warranty or guarantee of the accuracy or completeness of information in this document.
[2025-10-06 17:00] VITALS: BP 109/71; PULSE 120
[2025-10-06 17:01] VITALS: RESP 16; O2SAT 99
--- NOTE | 2025-10-07 11:36 | OB.TRI.HP_ITS ---
HPI - General General Chief Complaint: Decreased movement. HPI Narrative MANISH OLIVEIRA, is a 24 F who presents with concerns of decreased movement for several hours prior to coming in. Denies pain/discomfort. 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 agfskp-elqmood-ubwdc reflux Home Medications ?Medication ?Instructions ?Recorded ?Last Taken ?Type adqbhnjy-fld-Jl-FA 1 mg 1 tab PO DAILY 10/06/25 History tablet metoclopramide HCl 10 mg tablet 10 mg PO TID nausea #9 0 tabs 07/09/25 10/06/25 Rx (Reglan) nitrofurantoin 100 mg PO BID 7 days #14 cap s 10/05/25 Unknown Rx monohydrate/macrocrystals 100 mg capsule (Macrobid) Allergy/AdvReac Type Severity Reaction Status Date / Time escitalopram (From Lexapro) AdvReac Severe SUICIDAL Verified 10/06/25 16:57 citalopram hydrobromide AdvReac Other Verified 10/06/25 16:57 (From Celexa) Family History Grandmother Breast cancer Brain cancer Grandfather CVA (cerebral vascular accident) Mother Diabetes Heart failure MRSA carrier History of recurrent miscarriages Father Hypertension Surgical History [place] teeth removed Social History adopted: No household members: spouse and children housing: house number of children: 1 current occupation: [employer] current occupational exposures/hazards: No pets and animals: Yes (Not manage literbox) pets and animals: cat(s) history of recent travel: No sexually active: Yes Smoking Status: Never smoker second hand exposure: No ( quit vaping 2 months ago) alcohol intake: never substance use type: does not use well-balanced diet: rarely or never caffeine: Yes Type: carbonated beverages Number of servings: 1 eating out: 1-3 times/week during the past year weight has: increased > 10 lbs what type of physical activity do you participate in: walking frequency: 3-4 times per week duration: 15-30 minutes/day kalpana/jehovah's witness: Worship seatbelt use: always do you feel safe at home: Yes 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: : 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 Date Name GA/Weeks Outcome Route Bth Weight Infant Gen Labor Lgth Anesthesia Del Locatn Provider FOB 10/11/18 Chemical 4 spontaneous 03/30/23 Quyen 39 live - full term vacuum 6lbs 1oz Female epidural Starlacyn Coe Delivery Date: 03/30/23 Last Updated by: Yasmin Newman RN Hyperemesis, Subchorionic hemorrhage, GHTN, SGA/IUGR Visit Details Expected Delivery Route/Plan Labor Preferences- CB/BF classes: no labor support person: Saravanan labor intervention preferences: [] pain management options preferred: epidural cut cord/dad catch: cord : PP control planned: [] discussed possible routes of delivery and associated risks: [] special requests: [] Plans Covid status: [] Flu vaccine: declines Tdap vaccine: declines Rhogam: NA LARC form signed: yes Problem list reviewed and updated with the most current plan of care details and appropriate orders placed. Relevant counseling for the gestational age provided. Continue routine care and follow up unless otherwise noted in visit notes/problem list details OB Flowsheet Initial Weight: Not Recorded Date -?-?-?-?-?-?-?-?-?-?-?-?- EGA Weight BP Urine Prot -?-?-?-?-?-?-?-?-?-?-?-?- Glucose FHR FuHt Pres Dilation -?-?-?-?-?-?-?-?-?-?-?-?- Effaced St Visit Note 04/09/25 -?-?-?-?-?-?-?-?-?-?-?-?- 9w 3d 194 lb 8 oz 106/69 Nega tive -?-?-?-?-?-?-?-?-?-?-?-?- Negative 175 -?-?-?-?-?-?-?-?-?-?-?-?- SM- CRL 2.5 cm c ons with LMP 05/07/25 -?-?-?-?-?-?-?--?-?-?-?-?- 13w 3d 187 lb 4 oz 117/83 Trac e -?-?-?-?-?-?-?-?-?-?-?-?- Negative 166 -?-?-?-?-?-?-?-?-?-?-?-?- KW- no vb/crampi ng. getting headaches with dizziness and when episodes come they cause N/V. using reglan and magnesium. Uses Liquid IV and Gatorade. Is taking BPS with these episodes and reports elevated bps of 140/80. Cardiology consult 05/14/25 -?-?-?-?-?-?-?-?-?-?-?-?- 14w 3d 185 lb 1 oz 100/52 Trac e -?-?-?-?-?-?-?-?-?-?-?-?- Negative 162 -?-?-?-?-?-?-?-?-?-?-?-?- JV- pt was found to have fatty liver on us prior to . LFTs are coming down, plan to continue watching. 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 Will consult [facility] as she may be at high risk for pre-e and further management is requested. Start baby asa. urine culture q trimester. 06/06/25 -?-?-?-?-?-?-?-?-?-?-?-?- 17w 5d 183 lb 5 oz 112/68 Nega tive -?-?-?-?-?-?-?-?-?-?-?-?- Negative 156 -?-?-?-?-?-?-?-?-?-?-?-?- JV- no lof, vagi nal bleeding, or dec fm. does have some cramping. urine culture negative. 07/03/25 -?-?-?-?-?-?-?-?-?-?-?-?- 21w 4d 185 lb 4 oz 109/74 Nega tive -?-?-?-?-?-?-?-?-?-?-?-?- Negative 158 -?-?-?-?--?-?-?-?-?-?-?-?- MH-No VB. Elvin Flowers Has open wound on abdomen with some drainage. Culture collected. Rx keflex. Headaches persist off and on. Can't use tylenol. Reglan not helpful. Rx phenergan. 07/09/25 -?-?-?-?-?-?-?-?-?-?-?-?- 22w 3d 184 lb 4 oz 107/76 Trac e -?-?-?-?-?-?-?-?-?-?-?-?- Negative 145 -?-?-?-?-?-?-?-?-?-?-?-?- SM- still having headaches intermittently. nl bp last night and today at home it was measuring higher this morning but now it is normal. she has not felt well for days. she feels dizzy and has been having headaches, reordered medications. reglan ordered. repeat labs today. 07/30/25 -?-?-?-?-?-?-?-?-?-?-?-?- 25w 3d 188 lb 5 oz 120/82 Nega tive -?-?-?-?-?-?-?-?-?-?-?-?- Negative 150 25 -?-?-?-?-?-?-?-?-?-?-?-?- KW- no vb/lof/ct x. was seen in ER for SOB and labs came back nl. Today in office 10 dip is very abnormal. will send rx for UTI. 08/01/25 -?-?-?-?-?-?-?-?-?-?-?-?- 25w 5d 188 lb 4 oz 129/86 Nega tive -?-?-?-?-?-?-?-?-?-?-?-?- Negative 155 26 -?-?-?-?-?-?-?-?-?-?-?-?- SM- having incre ased back pain, will switch to keflex and order cbc cmp stat, growth us 08/21/25 -?-?-?-?-?-?-?-?-?-?-?-?- 28w 4d 190 lb 7 oz 118/75 Trac e -?-?-?-?-?-?-?-?-?-?-?-?- Negative 146 28 -?-?-?-?-?-?-?-?-?-?-?-?- MH-No VB. Good F m. Feeling pressure again like UTI. No back pain. UA +, Rx macrobid. Culture pending. Declines tdap, flu. 28 wk labs pending and CMP. Larc 09/03/25 -?-?-?-?-?-?-?-?-?-?-?-?- 30w 3d 192 lb 2 oz 117/76 Nega tive -?-?-?-?-?-?-?-?-?-?-?-?- Negative 145 30 Cephalic 0 -?-?-?-?-?-?-?-?-?-?-?-?- -No VB, LOF. G ood Fm. Last 3 days had episodes of reg CTX for 1-2 hours. Did stop w/ rest. Reassured and rev PTL S&S. 09/19/25 -?-?-?-?-?-?-?-?-?-?-?-?- 32w 5d 193 lb 9 oz 106/72 Nega tive -?-?-?-?-?-?-?-?-?-?-?-?- Negative 144 32 -?-?-?-?-?-?-?-?-?-?-?-?- KV- Good FM. Momo e ctx/LOF. No VB. Persistent BUTTS and flashers. BP at home 130-140s/80-90s mostly. See HPI for more details. 10/05/25 -?-?-?-?-?-?-?-?-?-?-?-?- 35w 0d 195 lb 3 oz 100/60 1+ -?-?-?-?-?-?-?-?-?-?-?-?- Negative 150 35 Cephalic 0 -?-?-?-?-?-?-?-?-?-?-?-?- MH-2 days ago butts d nausea and vomiting. That is gone but feels tired, dizzy. Worsening headache. Gave very small concentrated urine. Will have her force fluids in office and attempt to get urine culture, urine P/C ration, cmp and cbc MH-2 days ago had nausea and vomiting. That is gone but feels tired, dizzy. Worsening headache. Gave very small concentrated urine. Will have her force fluids in office and attempt to get urine culture, urine P/C ration, cmp and cbc. 2nd urine specimen + UA, culture pending. Macrobid sent after consult JV Assessment & Plan (1) Decreased movement: COMMENT: NST reactive today. Pt reports feeling multiple movements while on OB unit. PLAN: Plan Patient presents for triage evaluation secondary to decreased movement FHT: 145, accelerations present, decelerations absent, Moderate variability reactive, category I tracing [place]: irregular uterine contractions/irritability noted. Assessment and plan: Reactive NST, reassuring maternal and status patient. Pt instructed to do daily FKC's. Discharged to home to follow-up as scheduled. See problem list details for additional plan information. Note: Per pt she was diagnosed w/UTI pn 10/05 & given an rx to take - hasn't picked it up yet. Instructed to pick it up DEVAN & increase her daily H2O/hydration intake to 3-4 quarts of fluid a day. Call if worsening s/s or further concerns arise. Charges/Coding Multi Select Codes Urinary/Genital Urinary/Genital CPT Codes: 98866-08 non-stress test Interp
== END 2025-10-06 17:40 | disposition home or self-care (01) ==
LOC: WPOUT 16:50 → WP 16:51
PROVIDERS: Visit Provider Midwife
DX: O36.8130 Decreased fetal movements, third trimester, not applicable or unspecified (principal); O23.43 Unspecified infection of urinary tract in pregnancy, third trimester; Z3A.35 35 weeks gestation of pregnancy
CPT/HCPCS: 59025; 59050; 99221; G0378